=== PATIENT | female | born 1950 | race Caucasian/White ===

== ENCOUNTER 2021-06-09 11:03 | Emergency (ER) | payer MEDICARE, OTHER, SELFPAY ==
[2021-06-09 11:04] VITALS: BP 134/86; PULSE 64; RESP 18; TEMP 36.4; O2SAT 99; BMI 23.3
--- NOTE | 2021-06-09 11:32 | EKG12_ITS ---
Test Reason : Blood Pressure : / mmHG Vent. Rate : 064 BPM Atrial Rate : 064 BPM P-R Int : 172 ms QRS Dur : 088 ms QT Int : 450 ms P-R-T Axes : 062 -02 028 degrees QTc Int : 464 ms Normal sinus rhythm Nonspecific ST abnormality Abnormal ECG Confirmed by DARI ARAUJO, BARBARA ([id number]), online content editor SHABBIR NOBLE ([id number]) on 06/14/2021 10:45:27 AM Referred By: REEMA Confirmed By:ANDREY CHAPIN MD
--- NOTE | 2021-06-09 11:32 | CT_ITS ---
EXAM: CT ANGIOGRAPHY HEAD AND NECK WITH INTRAVENOUS CONTRAST CLINICAL INDICATION: vertigo TECHNIQUE: [place]/head and neck CT angiography protocol performed with intravenous contrast. This CT exam was performed using one or more of the following dose reduction techniques: automated exposure control, adjustment of the mA and/or kV according to patient size, and/or use of iterative reconstruction technique. This report was created using GigDropper report generation technology. MIP reconstructed images were created and reviewed. CONTRAST: IV 100mL Isovue-370 COMPARISON: None. FINDINGS: HEAD: RIGHT ANTERIOR CEREBRAL ARTERY: Unremarkable. No significant stenosis at the visualized segments. Anterior communicating artery is present. No aneurysm. RIGHT MIDDLE CEREBRAL ARTERY: Unremarkable. No significant stenosis at the visualized segments. No aneurysm. RIGHT POSTERIOR CEREBRAL ARTERY: Unremarkable. No occlusion or significant stenosis. No aneurysm. LEFT ANTERIOR CEREBRAL ARTERY: Hypoplastic. No significant stenosis at the visualized segments. No aneurysm. LEFT MIDDLE CEREBRAL ARTERY: Unremarkable. No significant stenosis at the visualized segments. No aneurysm. LEFT POSTERIOR CEREBRAL ARTERY: Unremarkable. No occlusion or significant stenosis. No aneurysm. BASILAR ARTERY: Unremarkable. No significant stenosis. No aneurysm. GREAT VESSELS OF AORTIC ARCH: Atherosclerosis of the aortic arch and origin of the left subclavian artery. OTHER VASCULATURE: No vascular malformation. NECK: RIGHT COMMON CAROTID ARTERY: Unremarkable. No significant stenosis. No dissection or occlusion. RIGHT INTERNAL CAROTID ARTERY: Calcific atherosclerosis of the proximal right internal carotid artery with noncalcified plaque just above. Moderate to borderline severe (65-70%) stenosis best seen on image 89 of series 607. No dissection or occlusion. RIGHT EXTERNAL CAROTID ARTERY: Unremarkable. No occlusion. RIGHT VERTEBRAL ARTERY: Unremarkable. No significant stenosis. No dissection or occlusion. LEFT COMMON CAROTID ARTERY: Unremarkable. No significant stenosis. No dissection or occlusion. LEFT INTERNAL CAROTID ARTERY: Minor atherosclerosis of the left proximal ICA with minimal (10-15%) luminal narrowing. LEFT EXTERNAL CAROTID ARTERY: Unremarkable. No occlusion. LEFT VERTEBRAL ARTERY: Unremarkable. No significant stenosis. No dissection or occlusion. LUNG APICES: Unremarkable as visualized. SOFT TISSUES: Unremarkable. OTHER FINDINGS: Multilevel degenerative changes throughout the cervical spine with foraminal more than canal stenosis. CAROTID STENOSIS REFERENCE USING NASCET CRITERIA: % ICA stenosis = (1 - narrowest ICA diameter/diameter of distal cervical ICA) x 100. Mild - <50% stenosis. Moderate - 50-69% stenosis. Severe - 70-94% stenosis. Near occlusion - 95-99% stenosis. Occluded - 100% stenosis. IMPRESSION: 1. 65-70% stenosis of the proximal right ICA. 2. No arterial dissection or intracranial aneurysm. No large vessel occlusion. EXAM: CT CERVICAL SPINE WITHOUT INTRAVENOUS CONTRAST CLINICAL INDICATION: vertigo TECHNIQUE: Helically acquired images were obtained of the cervical spine without intravenous contrast. 2D reformatted images were reviewed. This CT exam was performed using one or more of the following dose reduction techniques: automated exposure control, adjustment of the mA and/or kV according to patient size, and/or use of iterative reconstruction technique. This report was created using GigDropper report generation technology. Coronal and sagittal reformatted images were created and reviewed. CONTRAST: IV 100mL Isovue-370 COMPARISON: None. FINDINGS: VERTEBRAE: Unremarkable. No fracture. No traumatic subluxation. No discrete lytic or blastic abnormality. Normal alignment. Normal craniocervical junction and cervicothoracic junction. DISCS/SPINAL CANAL/NEURAL FORAMINA: Unremarkable. Disc heights are preserved. No critical stenosis. SOFT TISSUES: Unremarkable. No prevertebral soft tissue swelling. LYMPH NODES: Unremarkable. No cervical adenopathy. LUNG APICES: Unremarkable as visualized. Clear. OTHER FINDINGS: Central parenchymal volume loss. White matter changes that are nonspecific but most commonly associated with chronic small vessel ischemic disease. CT/CTA Head AND Neck W/ Contrast IMPRESSION: No acute intracranial hemorrhage or mass effect. Electronically Signed: Mor Maldonado MD (Brooks) at 12:56 EDT , Service support ,
--- NOTE | 2021-06-09 11:34 | EX.ED.DYSGE1 ---
HPI History of Present Illness Chief Complaint: Dizziness Informant: patient Onset/Context/Timing Onset: Weeks Timing: Waxes and wanes Current Severity: Moderate Maximum Severity: Moderate Narrative Narrative: Patient presents with continued dizziness after a fall. She fell approximate month ago hitting the back of her head. She was seen at a local ER at that time and had a negative head CT. Patient states that she continues to have intermittent dizziness that seems to be worsening. She states she has an overall lightheadedness when she turns her head to the left she gets a spinning sensation. Week after her initial injury she went to a different hospital for second opinion as she was still having symptoms. A repeat noncontrast head CT at that time was also reportedly negative. Patient has since moved to [place] but does not have any local physician here. [facility] Medical History Cirrhosis Home Medications meclizine 25 mg PO TID PRN #14 tab 06/09/21 [Rx Last Taken Unknown] potassium chloride 40 meq PO DAILY 3 Days #45 ml 06/09/21 [Rx Last Taken Unknown] Allergy/AdvReac Type Severity Reaction Status Date / Time No Known Allergies Allergy Verified 06/09/21 11:06 Social History Smoking Status: Unknown if ever smoked ROS ROS ED Constitutional Constitutional ED: Denies chills or fever(s) Eyes Eyes: Denies change in vision ENT ENT ED: Denies sore throat Cardiovascular Cardiovascular: Denies chest pain Respiratory/Chest Respiratory/Chest: Denies cough or dyspnea Gastrointestinal Gastrointestinal: Denies abdominal pain, diarrhea, nausea or vomiting Genitourinary Genitourinary ED: Denies dysuria Musculoskeletal Musculoskeletal: Denies back pain Integumentary Denies rash Neurologic Neurologic: Denies headache(s) or weakness Allergic/Immunologic Allergic/Immunologic ED: Denies urticaria EXAM Physical Exam Const Vital Signs: 06/09/21 11:04 06/09/21 12:10 06/09/21 13:09 Temperature 97.5 F L Temperature Source Temporal Pulse Rate 64 71 Respiratory Rate 18 15 Respiratory Effort Normal Non-Labored Respiratory Pattern Normal Blood Pressure 134/86 H 122/62 H Blood Pressure Mean 102 82 Pulse Ox 99 98 Oxygen Delivery Method Room Air Room Air Positive well nourished and well developed General Appearance ED: well developed HEENT Reports moist mucous membranes Eyes PERRL and EOMs intact bilaterally Neck supple Chest Wall inspection of chest normal and palpation of chest normal Resp normal respiratory effort and clear to auscultation bilaterally Cardio regular rate and regular rhythm GI normal to inspection, nondistended, normoactive bowel sounds and non-tender Palpation: soft Extremity normal to inspection Neuro oriented x3 and no sensory deficits noted Sensorium / Orientation: alert Motor Exam: strength 5/5 throughout Psych mental status grossly normal Skin no rashes or lesions noted MDM MDM MDM Narrative Medical decision making narrative: Patient is given Antivert. Lab work, EKG, CTA head and neck obtained. Lab Data Attestation: I reviewed the patient's lab results. Labs: Laboratory Results - last 24 hr 06/09/21 06/09/21 11:20 11:20 WBC 4.1 L RBC 3.62 L Hgb 13.1 Hct 36.2 L MCV 100.0 H MCH 36.2 H MCHC 36.2 H RDW Std Deviation 50.9 H RDW Coeff of [place] 13.8 Plt Count 144 L MPV 8.8 Immature Gran % (Auto) 0.200 Neut % (Auto) 57.6 Lymph % (Auto) 29.8 Long % (Auto) 10.5 H Eos % (Auto) 1.2 Baso % (Auto) 0.7 Absolute Neuts (auto) 2.4 Absolute Lymphs (auto) 1.22 Nucleated RBC % 0 Sodium 130 L Potassium 3.3 L Chloride 91 L Carbon Dioxide 30.0 Anion Gap 9 BUN 10 Creatinine 0.70 Estim Creat Clear Calc 45.85 Est GFR (MDRD) Af Amer 107 Est GFR (MDRD) Non-Af 88 BUN/Creatinine Ratio 14.3 Glucose 104 Calcium 9.7 Radiography Diagnostic Testing: Radiology Impression Head/Neck CTA 06/09/21 11:32 IMPRESSION: No acute intracranial hemorrhage or mass effect. Electronically Signed: Mor Maldonado MD (Brooks) at 12:56 EDT , Service support , IMPRESSION: 1. 65-70% stenosis of the proximal right ICA. 2. No arterial dissection or intracranial aneurysm. No large vessel occlusion. EKG Initial EKG: Attestation: I personally reviewed and interpreted this EKG as follows: Interpretation: Sinus Rhythm (Sinus at 64 with no acute ischemia.) Treatment and Re-Evaluation Comments:: Test results reviewed. Patient's sodium is 130. I was able to find a visit from May 05 of this year at which time her sodium level was 131. Potassium today is slightly low at 3.3. This is replaced with oral potassium. CTA reveals 65 to 70% stenosis of the proximal right ICA. No large vessel occlusion. No intracranial hemorrhage or mass-effect. Test results are all discussed with the patient. I did recommend close follow-up with vascular surgery for her moderate right ICA stenosis. She will be treated with Antivert which did help her dizziness here as well as oral potassium for the next 3 days. She is referred both to primary care and vascular for follow-up. Discharge Plan Triage Chief Complaint: Dizziness ED Provider: Claudia Toro Dx/Rx/DC Orders Clinical Impression: Vertigo, Carotid artery stenosis, Hypokalemia Instructions: ED Hypokalemia, ED Vertigo, Unspecified, Carotid Artery Disease Prescriptions: New meclizine 25 mg tablet 25 mg PO TID PRN (Reason: dizziness) Qty: 14 RF: 0 potassium chloride 40 mEq/15 mL liquid 40 meq PO DAILY 3 Days Qty: 45 RF: 0 Primary Care Provider: Care Physician,No Primary Referrals: Ernesto Rodriguez MD [STAFF PHYSICIAN] - As soon as possible Uday Brooks MD [STAFF PHYSICIAN] - As soon as possible Care Physician,No Primary [Primary Care Provider] - Disposition Disposition: Home, Self Care
--- NOTE | 2021-06-09 11:43 | NURSING ---
NO OLD EKGS
[2021-06-09] MEDS: Meclizine HCl 25 MG Tablet PO (11:52)
[2021-06-09 11:54] LABS: Absolute Lymphocyte Count 1.22 X10^3/uL (0.83-4.51); Absolute Neutrophil Count 2.4 X10^3/uL (2.0-7.7); Basophil# 0.03 X10^3/uL; Basophil% 0.7 % (0-1); Eosinophil# 0.05 X10^3/uL; Eosinophils% 1.2 % (0-5); Hematocrit 36.2 % (37-47); Hemoglobin 13.1 g/dL (12.0-15.0); Lymphocyte # 1.22 X10^3/ul (0.83-4.51); Lymphocyte % 29.8 % (19-41); Mean Corp Hgb Conc 36.2 g/dL (32-36); Mean Corpuscular Hgb 36.2 pg (27.0-32.0); Mean Platelet Vol. 8.8 fl (6.2-12.0); Monocyte# 0.43 X10^3/uL; Monocyte% 10.5 % (0-10); NRBC Flagged by Analyzer 0 % (0-5); Neutrophil # 2.36 X10^3/uL (2.7-7.7); Neutrophil % 57.6 % (47-70); Platelet Count 144 K/mm3 (150-450); RBC Distribution Width CV 13.8 % (11.6-14.6); RBC Distribution Width SD 50.9 fl (35.1-43.9); Red Blood Count 3.62 M/mm3 (4.2-5.4); White Blood Count 4.1 K/mm3 (4.4-11.0)
[2021-06-09 11:57] LABS: Anion Gap 9 (5-15); BUN 10 mg/dL (7-18); BUN/Creat Ratio 14.3 RATIO (10-20); Calcium,Total 9.7 mg/dL (8.5-10.1); Chloride 91 mmol/L (98-107); EST Glomerular Filtration Rate 88 mL/min (>60); Est Glom Filt Rate - Afr Amer 107 mL/min (>60); Estimated Creatinine Clearance 45.85 ml/min; Glucose 104 mg/dL (74-106); Potassium 3.3 mmol/L (3.5-5.1); Sodium Level 130 mmol/L (136-145)
[2021-06-09 13:09] VITALS: BP 122/62; PULSE 71; RESP 15; O2SAT 98
[2021-06-09] MEDS: Potassium Chloride Oral Soln 20 MEQ/15 ML UDC 40 MEQ PO (13:33)
== END 2021-06-09 13:48 | disposition home or self-care (01) ==
PROVIDERS: Emergency Provider Emergency Medicine
DX: R42 Dizziness and giddiness (principal); I65.29 Occlusion and stenosis of unspecified carotid artery; E87.6 Hypokalemia
CPT/HCPCS: 70496; 70498; 80048; 85025; 93005; 99282; Q9967; A4216

== ENCOUNTER → 2021-06-18 11:09 | Outpatient (CLI) | payer MEDICARE, OTHER, SELFPAY ==
--- NOTE | 2021-06-18 11:12 | CDU_ITS ---
Reason For Study: Carotid Stenosis Rt. Velocities/BP Lt. Velocities/BP Prox CCA 57/10 cm/sec. Prox CCA 72/13 cm/sec. Mid CCA 63/12 cm/sec. Mid CCA 55/11 cm/sec. Dist CCA 46/11 cm/sec. Dist CCA 56/14 cm/sec. Prox ICA 60/10 cm/sec. Prox ICA 68/17 cm/sec. Mid ICA 71/19 cm/sec. Mid ICA 97/29 cm/sec. Dist ICA 111/27 cm/sec. Dist ICA 105/25 cm/sec. Rt. ICA/CCA = 1.8. Lt. ICA/CCA = 1.9. Prox ECA 59/4 cm/sec. Prox ECA 69/7 cm/sec. Rt. Vert. 72/20 cm/sec. Lt. Vert. 78/19 cm/sec. Right Extracranial There is heterogeneous, irregular atherosclerotic plaque noted in the right common carotid artery. There is heterogeneous, irregular atherosclerotic plaque noted in the right internal carotid artery. There is intimal thickening but no significant atherosclerotic plaque noted in the right external carotid artery. Antegrade flow is noted in the right vertebral artery. Left Extracranial There is intimal thickening but no significant atherosclerotic plaque noted in the left common carotid artery. There is heterogeneous, irregular atherosclerotic plaque noted in the left internal carotid artery. There is intimal thickening but no significant atherosclerotic plaque noted in the left external carotid artery. Antegrade flow is noted in the left vertebral artery. Procedure Carotid Duplex 16848. This is a Carotid Duplex examination using B-mode, color flow and specral Doppler. Exam performed in department. VL/Carotid Duplex Ultrasound Interpretation Summary Calcific plaque with shadowing at the right proximal internal carotid artery wi th less than 50% stenosis Less than 50% stenosis right external carotid artery Mild irregular plaque in the proximal left internal carotid artery with less th an 50% stenosis Less than 50% stenosis left external carotid artery Patent antegrade vertebral arteries bilaterally Ordering Physician: Uday Brooks Referring Physician: Uday Brooks Performed By: Mary Lambert, CLAU, RVT
== END ==
PROVIDERS: Referring Provider Surgery; Visit Provider Surgery
DX: I65.21 Occlusion and stenosis of right carotid artery (principal)
CPT/HCPCS: 93880

== ENCOUNTER → 2021-07-08 11:46 | Outpatient (CLI) | payer MEDICARE, OTHER, SELFPAY ==
--- NOTE | 2021-07-08 11:53 | RAD_ITS ---
STUDY: X-RAY - PELVIS REASON FOR EXAM: Female, 70 years old. BACK PAIN TECHNIQUE: One view of the pelvis was obtained. COMPARISON: None. FINDINGS: There is a non-specific bowel gas pattern. Normal visualized soft tissue structures. There is narrowing with cortical sclerosis and osteophyte formation of the sacroiliac joint consistent with degenerative osteoarthritic changes. Normal visualized bilateral superior and inferior pubic rami. Normal pubic symphysis. Normal ischial tuberosities. Normal visualized right femoral head. Normal right acetabulum. There is moderate articular joint space narrowing of the right hip. Normal visualized left femoral head. Normal left acetabulum. There is moderate articular joint space narrowing of the left hip. RAD/Pelvis 1 or 2 Views IMPRESSION: Age consistent degenerative changes, no acute findings Electronically Signed: Trent Flanagan MD at 12:14 EDT , Service support ,
--- NOTE | 2021-07-08 11:57 | RAD_ITS ---
STUDY: X-RAY - LUMBAR SPINE REASON FOR EXAM: Female, 70 years old. BACK PAIN TECHNIQUE: 3 view(s) of the lumbar spine were obtained. COMPARISON: None FINDINGS: There is straightening of the normal lumbar lordosis. There is a dextroscoliosis of the lumbar spine. There is a normal alignment of the vertebrae in the lateral view. There is diffuse demineralization with multi-level endplate spondylosis. There is multi-level degenerative disc disease with multi-level disc space narrowing. There is no demonstrated fracture. There is atherosclerotic calcification of the abdominal aorta without a demonstrated aneurysm. RAD/Lumbar Spine 2 or 3 Views IMPRESSION: Degenerative changes of the spine, as detailed above. Dextroscoliosis Electronically Signed: Trent Flanagan MD at 12:13 EDT , Service support ,
== END ==
PROVIDERS: Referring Provider Anesthesiology Pain Medicine; Visit Provider Anesthesiology Pain Medicine
DX: M54.9 Dorsalgia, unspecified (principal)
CPT/HCPCS: 72100; 72170

== ENCOUNTER 2021-07-19 13:30 | Outpatient (RCR) | payer MEDICARE, OTHER, SELFPAY ==
--- NOTE | 2021-07-14 11:24 | HP.PTEVAL ---
Patient's Visit Information MARY ALICE GA is a 70 year old F referred to Physical Therapy by AMANDA COVARRUBIAS with a diagnosis of RIGHT SCIATICA AND R HIP TROCHANTERIC BURSITIS. Date of Evaluation: 07/14/21 Physical Therapist: Renita Lemon, PT, Cert MDT - Visit Plan Frequency: 2-3x /Week Duration: 4-6 Weeks Plan: *START VERY SLOW THE FIRST VISIT*. PATIENT DOES HAVE WATER AEROBIC EXPERIENCE IN [place] FOR ARTHRIITS. MAY NEED TO REFER PATIENT BACK TO DOCTOR FOR FUTHER ASSESSMENT/TESTING IF CAN NOT TOLERATE LIGHT PT. POC: AQUATIC THERAPY FOR PAIN RELIEF, POSTURE CORRECTION/STRENGTHENING, INSTRUCTION IN APPROPRIATE BODY MECHANICS AND ACTIVITY MODIFICATIONS. DLS STARTING WITH A NEUTRAL SPINE PROGRESSING ROM TOLERATED. JERI LE ROM, STRETCHING AND STRENGTHENING. HEP INSTRUCTION. - Subjective Work/Leisure: RETIRED. 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 Disability: NO. Present symptoms: LOW BACK PAIN, RIGHT LE SX'S ALL THE WAY TO THE FOOT AND LLE SX'S TO THE THIGH. PAIN, NUMBNESS AND TINGLING IN LE'S. Present since: ABOUT 3 WEEKS AGO. Pain Scale: WORST 8/10, LEAST 2/10. Currently: 03/13. Commenced as a result of: LIFTING BOX TO MOVE. IN THE NEW HOUSE MOSTLY NOW BUT STILL HAS SOME THINGS TO MOVE. PULLED A BOX OUT OF CAR AND TRIED TO KEEP FROM DROPPING IT GOING INTO A FLEX AND TWISTED POSITION THEN FELL ON RIGHT BUTTOCK. Symptoms at onset: RIGHT BUTTOCK PAIN. Worse: WALKING, SITTING ON HARD CHAIRS, STANDING, LIFTING, AND STOOPING. Better: LYING FLAT ON MY BACK IN BED. Disturbed sleep: YES. Previous history/Previous treatment: UNREMARKABLE. USE TO WALK TWO TO THREE MILES A DAY. Treatment this episode: ACCUNCTURE - TWO TREATMENTS - NO EFFECT. [facility] PAIN MGMT - DR. PRICE - TWO MUSCULAR CORTISONE SHOTS - NO EFFECT. 7 DAYS OF HYDROCODONE PRESCRIBED AND TRAZADONE MUSCLE RELAXER PRESCRIBED. STATES MUSCLE RELAXER HELPED SOME. 07/22/21 FOLLOW UP PENDING WITH DR. PRICE. ALSO SAW A PA AT [facility] AND PRESCRIBED MALOXACAM - ANTI-INFLAMMATORY BUT PATIENT REPORTS IT HAD NO EFFECT. Coughing/sneezing/straining: NEGATIVE. Gait: SLOW. VERY STIFF, VERY PAINFUL, FEAR FULL. USING WALKER AND CANE TO GET AROUND. TIME AND DISTANCE LIMITED. Difficulty initiating urination: NO. INCONTINENCE THAT IS MORE PREVELENT RIGHT NOW. NO LOSS OF BOWEL CONTROL. Accidents: FALL IN Apr WHILE OUTSIDE TRYING TO WALK UP STEPS AND FELL BACKWARDS ONTO CONCRETE HITTING BACK AND HEAD (STITCHES IN HEAD). SEEMED TO BE FINE AFTER THAT AND PACKED ABOUT 100 BOXES BY HERSELF, LOADED THEM IN TRUCK AND UNLOADED THEM. Unexplained weight loss: NO. Imaging: RECENT PELVIC X-RAYS: STUDY: X-RAY - PELVIS. REASON FOR EXAM: Female, 70 years old. BACK PAIN. TECHNIQUE: One view of the pelvis was obtained. COMPARISON: None. . FINDINGS: There is a non-specific bowel gas pattern. Normal visualized soft tissue. structures. There is narrowing with cortical sclerosis and osteophyte formation of the. sacroiliac joint consistent with degenerative osteoarthritic changes. Normal visualized bilateral superior and inferior pubic rami. Normal pubic. symphysis. Normal ischial tuberosities. Normal visualized right femoral head. Normal right acetabulum. There is. moderate articular joint space narrowing of the right hip. Normal visualized left femoral head. Normal left acetabulum. There is. moderate articular joint space narrowing of the left hip. . RAD/Pelvis 1 or 2 Views. IMPRESSION: Age consistent degenerative changes, no acute findings. . Electronically Signed: Trent Flanagan MD. at 12:14 EDT. RECENT LUMBAR X-RAY: STUDY: X-RAY - LUMBAR SPINE. REASON FOR EXAM: Female, 70 years old. BACK PAIN. TECHNIQUE: 3 view(s) of the lumbar spine were obtained. COMPARISON: None. . FINDINGS: There is straightening of the normal lumbar lordosis. There is a. dextroscoliosis of the lumbar spine. There is a normal alignment of the. vertebrae in the lateral view. There is diffuse demineralization with multi-level endplate spondylosis. There is multi-level degenerative disc disease with multi-level disc space. narrowing. There is no demonstrated fracture. There is atherosclerotic calcification of the abdominal aorta without a. demonstrated aneurysm. . RAD/Lumbar Spine 2 or 3 Views. IMPRESSION: Degenerative changes of the spine, as detailed above. Dextroscoliosis. PMH/Recent major surgery: OA. DIZZINESS/VERTIGO - HAD CAROTID A. US AND CONSULTED DR. ZELAYA WITH NO SURGERY RECOMMENDED. WATER RETENTION - ON LASIX. HTN. PSOROSIS OF THE LIVER DUE TO ALCOHOL. JERI TKR'S. TESTED NEGATIVE FOR RHEUMATOID ARTHRIS. OTHER: HAS HEART FAILURE AND IS NOT DOING WELL. MOVED HERE TO BE CLOSER TO [facility] AND MEDICAL CARE. HOPING TO LEAVE FOR [place] 07/24/21. - Objective Sitting/Standing Posture: SCOLIOSIS. LEFT ILIAC CREST HIGHER THAN RIGHT. Active Correction of posture: NE. Other Observations: VERY ANTALGIC INDEP GAIT INTO PT WITH A STRAIGHT CANE. TRANSFERS ARE INDEP BUT VERY GUARDED AND APPEAR VERY PAINFUL. BETTER ONCE SHE GETS MOVING. NO LOB. Motor deficit: JERI LE'S GROSSLY 4/5 WITH MMT'ING. THIS PT PROCEEDED CAREFULLY WITH TESTING BECAUSE TESTING PROVOKES BACK AND HIP PAIN. Sensory deficit: JERI LE LIGHT TOUCH SENSATION APPEARS INTACT AND SYMMETRICAL. ROM deficit: TIGHT JERI LE HS'S (RIGHT > LEFT) AND GASTROC SOLEUS COMPLEX'S. Reflexes: NT. Dural Signs: POSITIVE RIGHT LE. Lumbar mvmt loss: flex - MOD. ext - TATUM. R SG - TATUM. L SG - TATUM. INCREASED PAIN WITH LUMBAR ROM TESTING ALL PLANES. Core strength: POOR. Palpation: NO ACUTE THORACIC, LUMBAR, SACRAL OR HIP TENDERNESS. TREATMENT: NEUROMUSCULAR REEDUCATION - RETRAINING OF MVMT AND POSTURE FOR SITTING, LYING AND STANDING ACTIVITIES. THIS PT RECOMMENDED USE OF ROLLATOR VS CANE TO PATIENT TO DECREASE GAIT DEVIATIONS AND ALLIVATE PAIN WITH GAIT. - Balance/Special Test Scores Oswestry Low Back Score: 34 - Goals Goal 1:: DECREASE C/O LOW BACK AND JERI LE SX'S. Goal Time Frame: 4-6 Weeks Goal 2:: IMPROVE PERSONAL CARE, LIFTING, WALKING, SITTING, STANDING, SLEEP, SOCIAL LIFE, TRAVEL, CARE GIVING () AND WORK/HOMEMAKING FUNCTION Goal Time Frame: 4-6 Weeks Goal 3:: INSTRUCT IN PROPHYLAXIS Goal Time Frame: 4-6 Weeks - Anticipated Interventions Patient/Client Instruction: Educate patient on: Condition, Plan of Care, Risk Factors For the Purpose of:: To improve self management Therapeutic Exercise to Include: Strength training, Body mechanics, Postural training, Flexibilty training, Gait and locomotor training, Neuromotor development, In an aquatic setting, Dynamic Lumbar Stabilization For the Purpose of:: To decrease pain, To improve muscle performance and motor function, To increase tolerance to activity/condition/position, To improve ability of physical actions for home/community/work/leisure, To improve gait and locomotor functions Thank you for the opportunity to evaluate your patient. For Medicare and Medicare HMO plans, please review the plan of care and approve it. It will need to be FAXED BACK to us at [phone] for Medicare purposes. For Medicare only, by signing this I certify the plan of care. Please let me know if there are questions or concerns regarding this plan of care. Physician Signature: Date:
--- NOTE | 2021-07-21 08:25 | HP.PTDCNRP_ITS ---
MARY ALICE GA was seen in my office for initial evaluation on 07/14/21. The following Plan of Care was established for this patient: Initial Frequency: 2-3x /Week Initial Duration: 4-6 Weeks Patient/Client Instruction: Educate patient on: Condition, Plan of Care, Risk Factors For the Purpose of:: To improve self management Therapeutic Exercise to Include: Strength training, Body mechanics, Postural training, Flexibilty training, Gait and locomotor training, Neuromotor development, In an aquatic setting, Dynamic Lumbar Stabilization For the Purpose of:: To decrease pain, To improve muscle performance and motor function, To increase tolerance to activity/condition/position, To improve ability of physical actions for home/community/work/leisure, To improve gait and locomotor functions This patient was last seen in our office . Pertinent comments regarding their Physical therapy will appear below: This patient has not returned to Physical Therapy and is appropriate to return to MD for further follow-up as needed. She apparently called and cancelled remaining PT due to moving to [place]. At this point I will be discontinuing this patient from physical therapy. I would be happy to see this patient again in the future if found appropriate by the physician. Thank you! Renita Lemon, PT, Cert MDT Balance/Gait/Functional tests - Balance/Special Test Scores Oswestry Low Back Score: 34
== END 2021-07-19 19:00 | disposition home or self-care (01) ==
LOC: PT 13:30
PROVIDERS: Referring Provider Physician Assistant Surgical; Visit Provider Physician Assistant Surgical
DX: M54.31 Sciatica, right side (principal); M70.61 Trochanteric bursitis, right hip
CPT/HCPCS: 97112; 97113; 97162

== ENCOUNTER → 2022-02-16 | Outpatient (CLI) | payer MEDICARE, OTHER, SELFPAY | END | disposition home or self-care (01) | PROVIDERS: Visit Provider Podiatrist | DX: L97.522 Non-pressure chronic ulcer of other part of left foot with fat layer exposed (principal) | CPT/HCPCS: 87070; 87075; 87077; 87186; 87205 ==

== ENCOUNTER → 2022-03-25 | Outpatient (CLI) | payer MEDICARE, OTHER, SELFPAY ==
[2022-03-25 12:30] LABS: Absolute Lymphocyte Count 1.37 X10^3/uL (0.83-4.51); Basophil# 0.06 X10^3/uL; Basophil% 1.1 % (0-1); Eosinophil# 0.13 X10^3/uL; Eosinophils% 2.5 % (0-5); Hematocrit 37.2 % (37-47); Hemoglobin 12.7 g/dL (12.0-15.0); Lymphocyte # 1.37 X10^3/ul (0.83-4.51); Lymphocyte % 26.1 % (19-41); Mean Corp Hgb Conc 34.1 g/dL (32-36); Mean Corpuscular Hgb 28.5 pg (27.0-32.0); Mean Corpuscular Volume 83.4 fL (81-99); Monocyte% 13.4 % (0-10); NRBC Flagged by Analyzer 0 % (0-5); Neutrophil # 2.96 X10^3/uL (2.7-7.7); Neutrophil % 56.5 % (47-70); Platelet Count 203 K/mm3 (150-450); RBC Distribution Width CV 18.3 % (11.6-14.6); RBC Distribution Width SD 55.1 fl (35.1-43.9); Red Blood Count 4.46 M/mm3 (4.2-5.4); White Blood Count 5.2 K/mm3 (4.4-11.0)
[2022-03-25 12:36] LABS: ALB/GLOB Ratio 0.8 RATIO (0.9-2.4); AST(SGOT) 113 U/L (15-37); Alanine Aminotransfer ALT/SGPT 45 U/L (13-56); Albumin, Serum 3.6 g/dL (3.2-5.0); Alkaline Phosphatase 164 U/L (45-117); Anion Gap 11 (5-15); BUN 9 mg/dL (7-18); BUN/Creat Ratio 15.3 RATIO (10-20); Calcium,Total 9.7 mg/dL (8.5-10.1); Chloride 88 mmol/L (98-107); Creatinine, Serum 0.59 mg/dL (0.55-1.02); EST Glomerular Filtration Rate 108 mL/min (>60); Est Glom Filt Rate - Afr Amer 130 mL/min (>60); Globulin 4.4 g/dL (2.2-4.2); Glucose 105 mg/dL (74-106); Potassium 3.7 mmol/L (3.5-5.1); Sodium Level 129 mmol/L (136-145)
== END | disposition home or self-care (01) ==
LOC: BIMLAB 10:09
PROVIDERS: PCP Internal Medicine; Referring Provider Internal Medicine; Visit Provider Internal Medicine
DX: K21.9 Gastro-esophageal reflux disease without esophagitis (principal)
CPT/HCPCS: 36415; 80053; 85025

== ENCOUNTER → 2022-03-31 | Outpatient (CLI) | payer MEDICARE, OTHER, SELFPAY ==
--- NOTE | 2022-03-31 09:16 | BD_ITS ---
STUDY: DUAL ENERGY X-RAY ABSORPTIOMETRY / DXA REASON FOR EXAM: Female, 71 years old. Post menopausal TECHNIQUE: Bone Mineral Density (BMD) measurements of lumbar spine and right hip were obtained. COMPARISON: None. FINDINGS: Lumbar Spine (L1-L4): g/cm2 (0.991) / T-score (-0.5) / Z-score (1.6) Findings are suggestive of normal bone density with a low fracture risk. Right Femur Total: g/cm2 (0.656) / T-score (-2.3) / Z-score (-0.8) Right Femoral Neck: g/cm2 (0.510) / T-score (-3.1) / Z-score (-1.2) BD/Dexa Bone Density Study IMPRESSION: The patient is considered osteoporotic as outlined below according to World Felix Organization (WHO) criteria with a high fracture risk. Reference Information: The T-score is the number of standard deviations above or below the standard which is normal for young adults at their peak bone mineral density. The World Health Organization (WHO) interprets the T-scores as follows: Above -1 Normal bone density Between -1 and -2.5 Osteopenia Equal to / or below -2.5 Osteoporosis As a practical clinical guideline, osteopenia may be graded as follows: Mild -1 through -1.5 Moderate -1.6 through -2.0 Severe -2.1 through -2.4 The Z-score is the number of standard deviations above or below age-matched controls. A Z-score of less than -1.5 would be considered abnormal. References: 1. NIH Osteoporosis and Related Bone Diseases www osteo.org 2. International Society for Clinical Densitometry www iscd.org 3. National Osteoporosis Foundation www nof.org Electronically Signed: Nahum Kelley MD at 9:49 EDT ,
== END | disposition home or self-care (01) ==
LOC: OPBD 09:11
PROVIDERS: PCP Internal Medicine; Visit Provider Internal Medicine
DX: Z78.0 Asymptomatic menopausal state (principal)
CPT/HCPCS: 77080

== ENCOUNTER → 2022-04-11 | Outpatient (CLI) | payer MEDICARE, OTHER, SELFPAY ==
[2022-04-11 12:29] LABS: Vitamin D,25 Hydroxy 59.9 ng/mL
[2022-04-11 12:33] LABS: ALB/GLOB Ratio 0.9 RATIO (0.9-2.4); AST(SGOT) 131 U/L (15-37); Alanine Aminotransfer ALT/SGPT 56 U/L (13-56); Albumin, Serum 3.5 g/dL (3.2-5.0); Alkaline Phosphatase 186 U/L (45-117); Anion Gap 6 (5-15); BUN 12 mg/dL (7-18); Calcium,Total 9.1 mg/dL (8.5-10.1); Chloride 93 mmol/L (98-107); EST Glomerular Filtration Rate 105 mL/min (>60); Est Glom Filt Rate - Afr Amer 127 mL/min (>60); Glucose 133 mg/dL (74-106); Potassium 3.4 mmol/L (3.5-5.1); Protein, Total 7.5 g/dL (6.4-8.2); Sodium Level 129 mmol/L (136-145)
== END | disposition home or self-care (01) ==
LOC: BIMLAB 08:54
PROVIDERS: PCP Internal Medicine; Referring Provider Internal Medicine; Visit Provider Internal Medicine
DX: R74.8 Abnormal levels of other serum enzymes (principal); E87.1 Hypo-osmolality and hyponatremia; M81.0 Age-related osteoporosis without current pathological fracture
CPT/HCPCS: 36415; 80053; 82306

== ENCOUNTER 2022-04-28 08:00 | Outpatient (RCR) | payer MEDICARE, OTHER, SELFPAY ==
--- NOTE | 2022-04-04 09:30 | HP.PTEVAL ---
Patient's Visit Information MARY ALICE GA is a 71 year old F referred to Physical Therapy by Dr. Ernesto Rodriguez MD with a diagnosis of dizzyness and giddiness. Date of Evaluation: 04/04/22 Physical Therapist: Shabbir Bell, DPT, OCS, CSCS - Visit Plan Frequency: 3x /Week Duration: 4-6 Weeks Plan: 2-3x/week for 4-6 weeks for. positional treatments as needed, balance and strengthening ex once dizzyness aboloished. Next session check positional and plan for balance and strength LE focussing L hip - Subjective Broke L hip tripping on tool in November and breaking L hip, Now is weak. Falls a numbe of times prior partly due to wweakness and partly due to weakness. Dizzy is fairly constant described as lightheaded and imbalanced. Worse in morning with movement upon sitting for a few seconds. Sometimes happens when she lies down for a few seconds or if she turns real quick. imbalanced with closing eyes in shower. Uses cane to get around due to balance and used it since November(was on walker for a while). In house she is good but uses it out of house. Sleep is fine. Not employed. Spends day taking care of who has heart pump, needs care. No regular exercises. Dizzyness has been since hit head when she fell. Neurologist checked her out but is not treating her, no concerns. - Objective Walks with cane in R UE slow and hesitant to shift weight buit Mod I with cane. Short steps. Trasnfers slow but I with UE on arms of chair. balance is good with eyesight staically, fair - dynamically, requires cane for safety. LE AROM WFL, tightness in quads and hip extension limited L. L hip higher and L leg looks longer than R. Strength LE 3 in L hip, 4- R hip, knees 4- and ankles 4-. UE AROM WFL. reflexes patella and achilles 2/3 B. Sensation WNL to gross light touch. Discoloered in legs below knees. + R HD for up torsional nystagmus 12 seconds, Better after jolene. - Balance/Special Test Scores Functional Gait Assessment Score: 15 % Disability: 50.0000 Lower Extremity Functional Score: 26 - Goals Goal 1:: Abolish dizzyness Goal Time Frame: 4-6 Weeks Goal 2:: FGA Goal Time Frame: 4-6 Weeks Goal 3:: I strength ex, balance ex for HEP Goal Time Frame: 4-6 Weeks Goal 4:: pt feel 75% better in overall condition Goal Time Frame: 4-6 Weeks - Rehabilitation Potential Physical Therapy Diagnosis: BPPV and sedentary crating balance deficits and mobility concerns. Rehabilitation Potential: Good - Anticipated Interventions Patient/Client Instruction: Educate patient on: Condition, Plan of Care For the Purpose of:: To increase ROM, To improve muscle performance and motor function, To increase tolerance to activity/condition/position, To improve ability of physical actions for home/community/work/leisure, To improve gait and locomotor functions, To improve safety Therapeutic Exercise to Include: Strength training, Balance training Comment: positional For the Purpose of:: To improve nutrient delivery to tissue, To improve muscle performance and motor function, To increase tolerance to activity/condition/position, To improve ability of physical actions for home/community/work/leisure, To improve gait and locomotor functions, To improve balance, To improve safety with gait Thank you for the opportunity to evaluate your patient. For Medicare and Medicare HMO plans, please review the plan of care and approve it. It will need to be FAXED BACK to us at [phone] for Medicare purposes. For Medicare only, by signing this I certify the plan of care. Please let me know if there are questions or concerns regarding this plan of care. Physician Signature: Date:
--- NOTE | 2022-04-08 06:58 | HP.PT.NRP ---
MARY ALICE GA was seen in my office for initial evaluation on 04/04/22. The following Plan of Care was established for this patient: Initial Frequency: 3x /Week Initial Duration: 4-6 Weeks Patient/Client Instruction: Educate patient on: Condition, Plan of Care For the Purpose of:: To increase ROM, To improve muscle performance and motor function, To increase tolerance to activity/condition/position, To improve ability of physical actions for home/community/work/leisure, To improve gait and locomotor functions, To improve safety Therapeutic Exercise to Include: Strength training, Balance training For the Purpose of:: To improve nutrient delivery to tissue, To improve muscle performance and motor function, To increase tolerance to activity/condition/position, To improve ability of physical actions for home/community/work/leisure, To improve gait and locomotor functions, To improve balance, To improve safety with gait This patient was last seen in our office 04/06/22. Pertinent comments regarding their Physical therapy will appear below: Pt seen two visits of POC and treated with different maneuvers for positional vertigo. she has called to cancel the rest of her visits stating she is 100% not dizzy anymore. Very thankful. I will discontinue her at her request at this time. At this point I will be discontinuing this patient from physical therapy. I would be happy to see this patient again in the future if found appropriate by the physician. Thank you! Shabbir Bell, DPT, OCS, CSCS Balance/Gait/Functional tests - Balance/Special Test Scores Functional Gait Assessment Score: 15 % Disability: 50.0000 Lower Extremity Functional Score: 26
--- NOTE | 2022-04-13 10:00 | HP.PTREVAL ---
Dr. Ernesto Rodriguez MD, It has been my pleasure to treat MARY ALICE GA over the last 3 visits for dizzyness and giddiness. Please see the progress note below for an update on the physical therapy plan of care! Subjective: D/Davey was a miscommunication as she just wanted to communicate that dizzyness is gone but still wanted to continue. Still feels unbalalncesd and wants to continue to work on balanlce and strength. Spinning is not happening anymore. Doing some band exercises for ankle and leg strengthening. Not challenging and does it once per day. Wants to have more strength in hands and arms and legs. Using cane to walk long distances but not at home. No falls recently. Uses walker to walk dog. Objective/Function: FGA . - B positional Plan Plan: 2x/week for 4 weeks for. 1. progress balance vestibular exercises and show gym based LE and postural strength. D/C was a mistaken communication form [facility] and although her dizzyness is gone, she still wishes to work on her balance. Balance/Gait/Functional tests - Balance/Special Test Scores Functional Gait Assessment Score: 20 % Disability: 33.3400 Lower Extremity Functional Score: 26 Goals Goal 1:: Abolish dizzyness Goal Time Frame: 4-6 Weeks Goal Progress: Goal Met Goal 2:: FGA Goal Time Frame: 4-6 Weeks Goal 3:: I strength ex, balance ex for HEP Goal Time Frame: 4-6 Weeks Goal 4:: pt feel 75% better in overall condition Goal Time Frame: 4-6 Weeks Anticipated Interventions Patient/Client Instruction: Educate patient on: Condition, Plan of Care For the Purpose of:: To increase ROM, To improve muscle performance and motor function, To increase tolerance to activity/condition/position, To improve ability of physical actions for home/community/work/leisure, To improve gait and locomotor functions, To improve safety Therapeutic Exercise to Include: Strength training, Balance training Comment: positional For the Purpose of:: To improve nutrient delivery to tissue, To improve muscle performance and motor function, To increase tolerance to activity/condition/position, To improve ability of physical actions for home/community/work/leisure, To improve gait and locomotor functions, To improve balance, To improve safety with gait Please do not hesitate to contact me at [phone] by phone or if you have questions or concerns regarding this new plan of care! Sincerely, Shabbir Bell, DPT, OCS, CSCS
--- NOTE | 2022-06-13 12:16 | HP.PT.NRP ---
MARY ALICE GA was seen in my office for initial evaluation on 04/04/22. The following Plan of Care was established for this patient: Initial Frequency: 3x /Week Initial Duration: 4-6 Weeks Patient/Client Instruction: Educate patient on: Condition, Plan of Care For the Purpose of:: To increase ROM, To improve muscle performance and motor function, To increase tolerance to activity/condition/position, To improve ability of physical actions for home/community/work/leisure, To improve gait and locomotor functions, To improve safety Therapeutic Exercise to Include: Strength training, Balance training For the Purpose of:: To improve nutrient delivery to tissue, To improve muscle performance and motor function, To increase tolerance to activity/condition/position, To improve ability of physical actions for home/community/work/leisure, To improve gait and locomotor functions, To improve balance, To improve safety with gait This patient was last seen in our office 04/28/22. Pertinent comments regarding their Physical therapy will appear below: Pt seen 7 visits of POC and was feeling really good at last attendance. She did not schedule or attend any further visits. at this point, it has been over 6 weeks and I will discontinue due to nonattendance. At this point I will be discontinuing this patient from physical therapy. I would be happy to see this patient again in the future if found appropriate by the physician. Thank you! Shabbir Bell, DPT, OCS, CSCS Balance/Gait/Functional tests - Balance/Special Test Scores Functional Gait Assessment Score: 20 % Disability: 33.3400 Lower Extremity Functional Score: 26
== END 2022-04-28 19:00 | disposition home or self-care (01) ==
LOC: PT 08:00
PROVIDERS: PCP Internal Medicine; Referring Provider Internal Medicine; Visit Provider Internal Medicine
DX: R42 Dizziness and giddiness (principal); M25.552 Pain in left hip; R54 Age-related physical debility
CPT/HCPCS: 97110; 97162; 97530

== ENCOUNTER → 2022-05-31 | Outpatient (CLI) | payer MEDICARE, OTHER, SELFPAY ==
[2022-05-31 12:25] LABS: Anion Gap 10 (5-15); BUN 7 mg/dL (7-18); BUN/Creat Ratio 13.2 RATIO (10-20); Calcium,Total 9.4 mg/dL (8.5-10.1); Chloride 93 mmol/L (98-107); Creatinine, Serum 0.53 mg/dL (0.55-1.02); EST Glomerular Filtration Rate 121 mL/min (>60); Est Glom Filt Rate - Afr Amer 147 mL/min (>60); Glucose 86 mg/dL (74-106); Potassium 3.7 mmol/L (3.5-5.1); Sodium Level 131 mmol/L (136-145)
== END | disposition home or self-care (01) ==
LOC: BIMLAB 09:32
PROVIDERS: PCP Internal Medicine; Referring Provider Internal Medicine; Visit Provider Internal Medicine
DX: E87.1 Hypo-osmolality and hyponatremia (principal)
CPT/HCPCS: 36415; 80048

== ENCOUNTER → 2023-01-20 | Outpatient (CLI) | payer MEDICARE, OTHER, SELFPAY ==
[2023-01-20 12:30] LABS: Absolute Lymphocyte Count 1.02 X10^3/uL (0.83-4.51); Absolute Neutrophil Count 3.3 X10^3/uL (2.0-7.7); Basophil# 0.05 X10^3/uL; Eosinophil# 0.07 X10^3/uL; Eosinophils% 1.4 % (0-5); Hematocrit 31.8 % (37-47); Hemoglobin 11.6 g/dL (12.0-15.0); Lymphocyte # 1.02 X10^3/ul (0.83-4.51); Lymphocyte % 19.9 % (19-41); Mean Corp Hgb Conc 36.5 g/dL (32-36); Mean Corpuscular Hgb 36.9 pg (27.0-32.0); Mean Corpuscular Volume 101.3 fL (81-99); Mean Platelet Vol. 9.7 fl (6.2-12.0); Monocyte# 0.65 X10^3/uL; Monocyte% 12.7 % (0-10); NRBC Flagged by Analyzer 0 % (0-5); Neutrophil # 3.31 X10^3/uL (2.7-7.7); Neutrophil % 64.6 % (47-70); Platelet Count 114 K/mm3 (150-450); RBC Distribution Width CV 15.9 % (11.6-14.6); RBC Distribution Width SD 58.4 fl (35.1-43.9); Red Blood Count 3.14 M/mm3 (4.2-5.4); White Blood Count 5.1 K/mm3 (4.4-11.0)
[2023-01-20 13:21] LABS: ALB/GLOB Ratio 0.8 RATIO (0.9-2.4); AST(SGOT) 79 U/L (15-37); Alanine Aminotransfer ALT/SGPT 26 U/L (13-56); Albumin, Serum 3.2 g/dL (3.2-5.0); Alkaline Phosphatase 203 U/L (45-117); Anion Gap 11 (5-15); BUN 8 mg/dL (7-18); BUN/Creat Ratio 17.1 RATIO (10-20); Calcium,Total 9.2 mg/dL (8.5-10.1); Chloride 81 mmol/L (98-107); Cholesterol 191 mg/dL (200); Creatinine, Serum 0.47 mg/dL (0.55-1.02); EST Glomerular Filtration Rate 139 mL/min (>60); Est Glom Filt Rate - Afr Amer 168 mL/min (>60); Globulin 4.1 g/dL (2.2-4.2); Glucose 114 mg/dL (74-106); High Density Lipoprotein 119 mg/dL; Potassium 2.7 mmol/L (3.5-5.1); Protein, Total 7.3 g/dL (6.4-8.2); Sodium Level 125 mmol/L (136-145); T4 Free Direct 1.45 ng/dL (0.76-1.46); Thyroid Stim Hormone (TSH) 0.99 uIU/mL (0.358-3.74); Triglycerides 70 mg/dL; Very Low Density Lipoprotein 14 mg/dL (5-40)
== END | disposition home or self-care (01) ==
LOC: BIMLAB 10:34
PROVIDERS: PCP Internal Medicine; Referring Provider Internal Medicine; Visit Provider Internal Medicine
DX: I10 Essential (primary) hypertension (principal); E78.5 Hyperlipidemia, unspecified; M85.80 Other specified disorders of bone density and structure, unspecified site
CPT/HCPCS: 36415; 80053; 80061; 84439; 84443; 85025

== ENCOUNTER 2023-02-01 10:45 | Outpatient (RCR) | payer MEDICARE, OTHER, SELFPAY ==
[2023-01-25 09:15] VITALS: BP 109/50; PULSE 70; RESP 16; TEMP 36.2; BMI 23.5
--- NOTE | 2023-01-25 12:34 | PCM.WC.HP ---
History of Present Illness Date of Service: 01/25/23 Chief Complaint: Follow-up on her right lower leg lateral area wound nonhealing since at least November. History of Wound: 72-year-old white female in [place] where she is living during the winter. She had a growth removed from her right lateral lower leg. She is still not sure if it is cancer or not. Was removed only by her regular doctor not a Derm doctor. Still open to the subcutaneous skin. She saw her own doctor up here and she was referred to us from her and put on cephalexin. Recently she was taken off her Lasix and has terrible edema of her lower extremities and abdomen. Patient states she has gained 9 pounds PFSH Medical History Age-related physical debility Arthritis Bleeding ulcer Broken hip Carotid stenosis, right Cellulitis of right leg Cirrhosis Dermatitis Elevated liver enzymes GERD (gastroesophageal reflux disease) History of skin cancer Hx of staphylococcal infection Hypertension Hypokalemia Hyponatremia Hypotension Left hip pain Osteoporosis Post-menopausal Screening for thyroid disorder Ulcer of right leg Varicose veins of both lower extremities Vertigo Home Medications alendronate 70 mg tablet (Fosamax) 70 mg PO QWEEK #30 tabs 04/12/22 [Rx Last Taken Unknown] spironolactone 50 mg tablet 50 mg PO DAILY #90 tabs 04/12/22 [Rx Last Taken Unknown] pantoprazole 40 mg tablet,delayed release 40 mg PO DAILY #90 tabs 04/22/22 [Rx Last Taken Unknown] nadolol 20 mg tablet See Rx Instructions .Route .COMPLEX #90 tabs 12/01/22 [Rx Last Taken Unknown] cephalexin 500 mg capsule 500 mg PO TID #21 caps 01/20/23 [Rx Last Taken Unknown] potassium chloride 20 mEq tablet,extended release(part/cryst) 40 meq PO BID 1 week #28 tabs 01/20/23 [Rx Last Taken Unknown] sodium chloride 1,000 mg soluble tablet mg PO 01/20/23 [History Last Taken Unknown] triamcinolone acetonide 0.1 % topical ointment 1 applic topical DAILY PRN Dermatitis #80 grams 01/20/23 [Rx Last Taken Unknown] Allergy/AdvReac Type Severity Reaction Status Date / Time chlorhexidine Allergy Mild Other Verified 01/25/23 09:43 [From [facility]] Family History Mother Heart disease Father Heart disease Surgical History History of hysterectomy History of knee replacement History of left hip replacement Social History Smoking Status: Never smoker alcohol intake: current alcohol intake frequency: 0-2 drinks per day Alcohol type: wine substance use type: does not use ROS Constitutional Constitutional: Reports systems reviewed and no addt'l complaints, except as documented Eyes Eyes: Reports systems reviewed and no addt'l complaints, except as documented ENT HEENT: Reports systems reviewed and no addt'l complaints, except as documented Cardiovascular Cardiovascular: Reports systems reviewed and no addt'l complaints, except as documented Respiratory/Chest Respiratory/Chest: Reports systems reviewed and no addt'l complaints, except as documented Gastrointestinal Gastrointestinal: Reports systems reviewed and no addt'l complaints, except as documented Genitourinary Genitourinary: Reports systems reviewed and no addt'l complaints, except as documented Musculoskeletal Musculoskeletal: Reports systems reviewed and no addt'l complaints, except as documented Integumentary Integumentary: Reports skin pain, skin swelling, wounds and other Details: Nonhealing open wound from a removal of a lesion on her right lower leg since November Has not really been using anything but a dressing on it. Neurologic Neurologic: Reports systems reviewed and no addt'l complaints, except as documented Psychiatric Psychiatric: Reports systems reviewed and no addt'l complaints, except as documented Endocrine Endocrinology: Reports systems reviewed and no addt'l complaints, except as documented Hematologic/Lymphatic Hematologic/Lymphatic: Reports systems reviewed and no addt'l complaints, except as documented Allergic/Immunologic Allergic/Immunologic: Reports systems reviewed and no addt'l complaints, except as documented Vital Signs Vital Signs Vital Signs: 01/25/23 09:15 Temperature 97.1 F L Temperature Source Temporal Pulse Rate 70 Respiratory Rate 16 Blood Pressure 109/50 L Blood Pressure Mean 69 Blood Pressure Source Monitor Blood Pressure Position Sitting Blood Pressure Location Left Arm Oxygen Delivery Method Room Air Weight Weight: 137 lb Body Mass Index (BMI) 23.5 Physical Exam Const oriented x3 General Appearance: cooperative Exam Limitations: no limitations HEENT normocephalic Head and Scalp: normal to inspection Face and Sinus: normal facial exam Nose: external nose normal External Ear: external ears normal Eyes PERRL General Eye: normal appearance of both eyes Neck full ROM General: normal visual inspection Resp normal respiratory effort Effort and Inspection: able to speak in complete sentences Auscultation: clear to auscultation bilaterally Cardio regular rate and regular rhythm Palpation: normal PMI Rate: regular rate Rhythm: regular rhythm GI Auscultation: normoactive bowel sounds Palpation: soft and no hepatosplenomegaly Extremity Extremity Narrative: Edema from at least knees down to even toes like little sausages. Discoloration of her lower legs from probably peripheral vascular disease. She does have obvious varicosities. General Extremity: normal exam except as noted Skin General Skin Exam: erythema and venous stasis Wounds: wounds noted Wound Narrative: Rather large size of a $0.50 piece full-thickness open wound on the right lateral leg. We will try to get studies from the other doctor. Neuro oriented x3 Psych Appearance: grossly normal Speech: normal speech Thought Content: normal thought content Judgement: judgement good Debridement Note Debridement Note Wound debrided: Right lower extremity open wound Laterality: Right Type of Debridement: Excisional debridement Anesthesia Used: 4% Lidocaine Solution and 5% Lidocaine Gel Depth: Down to and including healthy tissue and in the subcutaneous layer Percentage of wound debrided: 100 Instrument Used: 7mm curette Tissue Removed: Fibrin Severity: Limited To Skin Breakdown Amount of bleeding with debridement: Mild Bleeding Controlled with: Compression and gauze Patient tolerated procedure: Patient tolerated procedure well Post-Debridement Measurements and Additional Note: Post-Debridement Measurements/Treatment - Nurse 1 - General Ulcer Assessment Start: 01/25/23 09:11 Freq: Status: Active Protocol: SAHIL Activity Type Activity Date Activity User E-sign Co-sign Detail Recorded Client Recorded Date Recorded By Document 01/25/23 09:15 [facility] [id number] 01/25/23 09:39 [facility] 01/25/23 09:15 - Today's Visit Information Type of service Initial Visit Arrival Mode Ambulatory,Cane Transfer Assistance None Patient Identification Verified (Name & Yes ) Patient Requires Transmission-Based No Precautions Height and Weight Height 5 ft 4 in Weight 137 lb Weight in Pounds 137.0 lbs Weight Measurement Method Stated by Patient Body Mass Index (BMI) 23.5 BMI Classification Normal BSA - [place] 1.67 Vital Signs Temperature (97.8 F-99.1 F) 97.1 F L Temperature Source Temporal Pulse Rate (60-100) 70 Pulse Location Monitor Respiratory Rate (12-18) 16 Respiratory rate source Observation Oxygen Delivery Method Room Air Blood Pressure (90/60-120/80) 109/50 L Blood Pressure Mean 69 Source Monitor Position Sitting Blood Pressure Location Left Arm History Since Last Visit- (Skip if this is Patient's initial visit) Left Footwear Regular Shoe Right Footwear Regular Shoe Pain Scale: 0-10 Numeric Is Patient Pain Free? Yes Lower Extremity Assessment/ Foot Assessment/ Toe Nail Assessment Right -Posterior Tibial Palpable No -Posterior Tibial Doppler Monophasic -Dorsalis Pedis Doppler Monophasic -Extremity Color Hyperpigmented -Hair Growth on Legs No -Hair Growth on Toes No -Temperature of Extremity Cool -Thick Yes -Discolored Yes -Deformed No -Improper Length & Hygeine No Left -Posterior Tibial Palpable No -Posterior Tibial Doppler Monophasic -Dorsalis Pedis Doppler Monophasic -Extremity Color Hyperpigmented -Hair Growth on Legs No -Hair Growth on Toes No -Temperature of Extremity Cool -Thick Yes -Discolored Yes -Deformed No -Improper Length & Hygeine No Neuropathy Assessment Feet - Top Side and Bottom <Entered> (a) Communication Assessment Preferred language Uzbek Oenologist Required No Able to Read Yes Able to Write Yes Communication Tools None Right Hearing Abillity Normal Left Hearing Abillity Normal Visual Assistive Devices Glasses Teaching Assessment Preferences Verbal,Written, Audio/Visual, Demonstration Barriers to Learning None Readiness To Learn Excellent Willingness to Engage in Self Management High Activies Readiness to Engage in Self Management High Activities Anxiety Level Calm Cooperation Cooperative Perception Coherent Interest in Health Problem Asks Questions Education Importance Acknowledges Need Does Patient Smoke tobacco or other No substances Smoking Status Never smoker Is Patient Diabetic No Functional Assessment Recent Decline in Ability to Perform Denies Any Declines Culture/Yazidism/Machine Plug Shaper Cultural/Yazidism Needs that may affect No Treatment Plan Teaching: Wound Center *Welcome to the Wound Center -Person Taught Patient -Teaching Method Discussion -Response to teaching Verbalize understanding Welcome to the Wound Care Center [place] (a) 1 - + WC - Nurse 1 - General Ulcer Measurement Start: 01/25/23 09:11 Freq: Status: Active Protocol: Activity Type Activity Date Activity User E-sign Co-sign Detail Recorded Client Recorded Date Recorded By Document 01/25/23 09:15 [facility] [id number] 01/25/23 09:39 [facility] 01/25/23 09:15 Wound Center Nurse 1 #1- R VICENTA JAMESON (P/O BASAL CELL CA) -Combined with other wound No -Current Size (cm) - Length 3.2 -Current Size (cm) - Width 3 -Current Size (cm) - Depth 0.2 -Total Square Cm 9.6 -Date of Last Picture (Recall this 01/25/23 field) -Photo Taken Yes -Epithelialization None Present -Tunneling No -Undermining/Tunneling No -Circular Undermining No -Exudate Amt Medium -Exudate Type Serosanguineous -Wound Margin Distinct, Outline Attached -Granulation Amt Small (1-33%) -Granulation Quality Red -Slough/Fibrin Yes -Necrosis Amt Large (67-100%) -Necrotic Tissue Type Adherent Slough -Texture (Elif-wound Skin Appearance) Assessed, Scarring -Moisture (Elif-wound Skin Appearance) Assessed -Color (Elif-wound Skin Appearance) Assessed, Erythema -Temperature (Elif-wound Skin No Abnormality Appearance) (Pt Warm) -Tenderness on Palpation (Elif-wound Yes Skin Appearance) -Ulcer Cleansing Soap and Water -Foul Odor after Cleansing No -Anesthetic Used 5% Lidocaine Gel Lower Limb Edema Present Yes Right Calf (cm) 37.1 Right Ankle (cm) 22.7 Left Calf (cm) 32.9 Left Ankle (cm) 21.2 WC - Nurse 2 - General Ulcer CM Notes Start: 01/25/23 09:11 Freq: Status: Active Protocol: Activity Type Activity Date Activity User E-sign Co-sign Detail Recorded Client Recorded Date Recorded By Document 01/25/23 09:55 MW [id number] 01/25/23 10:02 MW 01/25/23 09:55 Wound Center Nurse 2 #1- Deepika JAMESON (P/O BASAL CELL CA) -Time 09:56 -Correct Patient Yes -Correct Side, Site, Position Yes -Correct Procedure Yes -Procedure Performed Yes -Type of Procedure Debridement -Clinical Debridement Subcutaneous -Tissue Removed Subcutaneous -Post Debridement (cm) - Length 3.5 -Post Debridement (cm) - Width 3.0 -Post Debridement (cm) - Depth 0.2 -Total Square (Post) (cm) 10.50 -Area of Debridement (cm) - Length 3.5 -Area of Debridement (cm) - Width 3.0 -Total Square (Area) (cm) 10.50 -Tunneling No -Undermining/Tunneling No -Circular Undermining No -Wound/Ulcer Outcome Not Healed -Ulcer Cleansing Rinsed/ Irrigated with Saline -Foul Odor after Cleansing No -Bioengineered Tissue No -Bleeding Controlled with Pressure -Treatment Response Procedure Tolerated Well -Offloading No -Debridement - Subq, 1st 20sq cm Yes Pain Scale: 0-10 Numeric Is Patient Pain Free? Yes - Nurse 3 - General Ulcer D/C NN Start: 01/25/23 09:11 Freq: Status: Active Protocol: Activity Type Activity Date Activity User E-sign Co-sign Detail Recorded Client Recorded Date Recorded By Document 01/25/23 10:42 [id number] 01/25/23 10:43 RB 01/25/23 10:42 Wound Care Center Nurse 3 #1- R LAT LE (P/O BASAL CELL CA) -Ulcer Cleansing Rinsed/ Irrigated with Saline -Primary Dressing Applied Aquacel Extra, NonAdherent Contact Layer -Primary Dressing Covered/Secured with Dry Gauze,Dry Gauze & Roll Gauze,Secured with Tape -Aquacel Extra 1 Right -Tubular Bandage Single Layer -Size of Tubigrip Used Size D -Size D ($) 1 Left -Tubular Bandage Single Layer -Size of Tubigrip Used Size D -Size D ($) 1 Treatment Response Procedure Tolerated Well Pain Scale: 0-10 Numeric Is Patient Pain Free? Yes Teaching: Wound Center Compression Wraps & Stockings -Person Taught Patient -Teaching Method Discussion, Demonstration -Response to teaching Verbalize understanding Dressing Your Wound -Person Taught Patient -Teaching Method Discussion, Demonstration -Response to teaching Verbalize understanding WC - Visit Discharge Discharge Condition Stable Ambulatory Status Ambulatory,Cane Transportation Private Auto Medication Reconcilliation completed & No provided to patient/care provider Clinical Summary of Care Provided Yes Assessment/Plan Assessment/Plan (1) Ulcer of right leg: CODE(S): L97.919 - Non-pressure chronic ulcer of unspecified part of right lower leg with unspecified severity PLAN: Wash the leg with antibacterial soap apply Aquacel extra moistened with Adaptic over top gauze dressing and Zehra single-layer Tubigrip to the bilateral lower legs Follow-up in 1 week Patient needs to call About the edema (2) Varicose veins of both lower extremities: CODE(S): I83.93 - Asymptomatic varicose veins of bilateral lower extremities (3) Edema of both lower extremities: CODE(S): R60.0 - Localized edema
[2023-02-01 11:13] VITALS: BP 105/54; PULSE 66; RESP 16; TEMP 36.2; BMI 23.5
--- NOTE | 2023-02-01 12:22 | PCM.WC.PN ---
History of Present Illness Date of Service: 02/01/23 Chief Complaint: Follow-up on her right lower leg lateral area wound nonhealing since at least November. History of Wound: 72-year-old white female in [place] where she is living during the winter. She had a growth removed from her right lateral lower leg. She is still not sure if it is cancer or not. Was removed only by her regular doctor not a Derm doctor. Still open to the subcutaneous skin. She saw her own doctor up here and she was referred to us from her and put on cephalexin. Recently she was taken off her Lasix and has terrible edema of her lower extremities and abdomen. Patient states she has gained 9 pounds Progress of Wound: Wound cultures came back positive and patient will be started on Levaquin 500 mg daily for 14 days Measurements were slightly smaller patient was doing well on Aquacel extra we will continue with the same treatment. Patient was also approved for EpiFix but will wait 1 week because of the infection. Subjective Subjective Patient is happy with outcomes Objective Data Objective Data The surrounding skin around the wound looks dark tanned and a lot of possible skin issues such as basal cell. Huge black freckles around in her darkened skin. The wound itself is measuring smaller. Vital Signs: Vital Signs Temp Pulse Resp BP O2 Del Method 97.2 F L 66 16 105/54 L Room Air 02/01/23 11:13 02/01/23 11:13 02/01/23 11:13 02/01/23 11:13 02/01/23 11:13 Oxygen Delivery Method Room Air Weight: 137 lb Body Mass Index (BMI) 23.5 Lab / Micro Data Micro: Microbiology 01/25/23 10:00 Wound Abcess - Leg, Right Gram Stain - Final 01/25/23 10:00 Wound Abcess - Leg, Right Wound Culture - Final Pseudomonas aeruginosa Staphylococcus pseudintermediu 01/25/23 10:00 Wound Abcess - Leg, Right Anaerobic Culture - Final No anaerobic bacteria isolated. Physical Exam Const oriented x3 General Appearance: cooperative Exam Limitations: no limitations HEENT normocephalic Head and Scalp: normal to inspection Face and Sinus: normal facial exam Nose: external nose normal External Ear: external ears normal Eyes PERRL General Eye: normal appearance of both eyes Neck full ROM General: normal visual inspection Resp normal respiratory effort Effort and Inspection: able to speak in complete sentences Auscultation: clear to auscultation bilaterally Cardio regular rate and regular rhythm Palpation: normal PMI Rate: regular rate Rhythm: regular rhythm GI Auscultation: normoactive bowel sounds Palpation: soft and no hepatosplenomegaly Extremity Extremity Narrative: Edema from at least knees down to even toes like little sausages. Discoloration of her lower legs from probably peripheral vascular disease. She does have obvious varicosities. General Extremity: normal exam except as noted Skin General Skin Exam: erythema and venous stasis Wounds: wounds noted Wound Narrative: Rather large size of a $0.50 piece full-thickness open wound on the right lateral leg. We will try to get studies from the other doctor. Neuro oriented x3 Psych Appearance: grossly normal Speech: normal speech Thought Content: normal thought content Judgement: judgement good Debridement Note Debridement Note Wound debrided: Right lateral lower leg traumatic opening Type of Debridement: Excisional debridement Anesthesia Used: 5% Lidocaine Gel Depth: Down to and including healthy tissue and in the subcutaneous layer Percentage of wound debrided: 100 Instrument Used: 7mm curette Tissue Removed: Fibrin Severity: Fat Layer Exposed Amount of bleeding with debridement: Mild Bleeding Controlled with: Compression and gauze Patient tolerated procedure: Patient tolerated procedure well Post-Debridement Measurements and Additional Note: Post-Debridement Measurements/Treatment - Nurse 1 - General Ulcer Assessment Start: 01/25/23 09:11 Freq: Status: Active Protocol: .RAFFI Activity Type Activity Date Activity User E-sign Co-sign Detail Recorded Client Recorded Date Recorded By Document 01/25/23 09:15 [facility] [id number] 01/25/23 09:39 [facility] Document 02/01/23 11:13 [facility] [id number] 02/01/23 11:20 [facility] 01/25/23 02/01/23 09:15 11:13 - Today's Visit Information Type of service Initial Visit Follow-up Visit (Physician/PHYSICIAN RELATIONS REPRESENTATIVE ) Arrival Mode Ambulatory,Cane Ambulatory Transfer Assistance None None Patient Identification Verified (Name & Yes Yes ) Patient Requires Transmission-Based No No Precautions Height and Weight Height 5 ft 4 in Weight 137 lb Weight in Pounds 137.0 lbs Weight Measurement Method Stated by Patient Body Mass Index (BMI) 23.5 23.5 BMI Classification Normal Normal BSA - [place] 1.67 Vital Signs Temperature (97.8 F-99.1 F) 97.1 F L 97.2 F L Temperature Source Temporal Temporal Pulse Rate (60-100) 70 66 Pulse Location Monitor Monitor Respiratory Rate (12-18) 16 16 Respiratory rate source Observation Observation Oxygen Delivery Method Room Air Room Air Blood Pressure (90/60-120/80) 109/50 L 105/54 L Blood Pressure Mean (mm Hg) 69 71 Source Monitor Monitor Position Sitting Sitting Blood Pressure Location Left Arm Left Arm History Since Last Visit- (Skip if this is Patient's initial visit) Have you changed medications since your No last visit? Any new allergies or adverse reactions No Had a fall/change in ADL's that may No increase risk of falls Signs or symptoms of abuse and/or No neglect since last visit Have you been in the hospital since your No last visit? Has dressing in place as prescribed Yes Has compression in place as prescribed No Has offloadiing in place as prescribed N/A Experienced any changes in pain level or No management Left Footwear Regular Shoe Regular Shoe Right Footwear Regular Shoe Regular Shoe Pain Scale: 0-10 Numeric Is Patient Pain Free? Yes Yes Lower Extremity Assessment/ Foot Assessment/ Toe Nail Assessment Right -Posterior Tibial Palpable No -Posterior Tibial Doppler Monophasic -Dorsalis Pedis Doppler Monophasic -Extremity Color Hyperpigmented -Hair Growth on Legs No -Hair Growth on Toes No -Temperature of Extremity Cool -Thick Yes -Discolored Yes -Deformed No -Improper Length & Hygeine No Left -Posterior Tibial Palpable No -Posterior Tibial Doppler Monophasic -Dorsalis Pedis Doppler Monophasic -Extremity Color Hyperpigmented -Hair Growth on Legs No -Hair Growth on Toes No -Temperature of Extremity Cool -Thick Yes -Discolored Yes -Deformed No -Improper Length & Hygeine No Neuropathy Assessment Feet - Top Side and Bottom <Entered> (a) Communication Assessment Preferred language Martiniquais Ambulatory Care Coordinator Required No Able to Read Yes Able to Write Yes Communication Tools None Right Hearing Abillity Normal Left Hearing Abillity Normal Visual Assistive Devices Glasses Teaching Assessment Preferences Verbal,Written, Audio/Visual, Demonstration Barriers to Learning None Readiness To Learn Excellent Willingness to Engage in Self Management High Activies Readiness to Engage in Self Management High Activities Anxiety Level Calm Cooperation Cooperative Perception Coherent Interest in Health Problem Asks Questions Education Importance Acknowledges Need Does Patient Smoke tobacco or other No substances Smoking Status Never smoker Is Patient Diabetic No Functional Assessment Recent Decline in Ability to Perform Denies Any Declines 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 Cultural/Rastafarian Needs that may affect No Treatment Plan Teaching: Wound Center *Welcome to the Wound Center -Person Taught Patient -Teaching Method Discussion -Response to teaching Verbalize understanding Welcome to the Wound Care Center Armenian (a) 1 - + WC - Nurse 1 - General Ulcer Measurement Start: 01/25/23 09:11 Freq: Status: Active Protocol: Activity Type Activity Date Activity User E-sign Co-sign Detail Recorded Client Recorded Date Recorded By Document 01/25/23 09:15 [facility] [id number] 01/25/23 09:39 BM Document 02/01/23 11:13 [facility] [id number] 02/01/23 11:20 [facility] 01/25/23 02/01/23 09:15 11:13 Wound Center Nurse 1 #1- R LAT LE (P/O BASAL CELL CA) -Combined with other wound No No -Current Size (cm) - Length 3.2 3.1 -Current Size (cm) - Width 3 2.5 -Current Size (cm) - Depth 0.2 0.2 -Total Square Cm 9.6 7.75 -Date of Last Picture (Recall this 01/25/23 02/01/23 field) -Photo Taken Yes Yes -Epithelialization None Present None Present -Tunneling No No -Undermining/Tunneling No No -Circular Undermining No No -Exudate Amt Medium Medium -Exudate Type Serosanguineous Serosanguineous -Wound Margin Distinct, Distinct, Outline Outline Attached Attached -Granulation Amt Small (1-33%) Small (1-33%) -Granulation Quality Red Red -Slough/Fibrin Yes Yes -Necrosis Amt Large (67-100%) Large (67-100%) -Necrotic Tissue Type Adherent Slough Adherent Slough -Texture (Elif-wound Skin Appearance) Assessed, Assessed, Scarring Scarring -Moisture (Elif-wound Skin Appearance) Assessed Assessed,Dry/ Scaly -Color (Elif-wound Skin Appearance) Assessed, Assessed Erythema -Temperature (Elif-wound Skin No Abnormality No Abnormality Appearance) (Pt Warm) (Pt Warm) -Tenderness on Palpation (Elif-wound Yes No Skin Appearance) -Ulcer Cleansing Soap and Water Rinsed/ Irrigated with Saline -Foul Odor after Cleansing No No -Anesthetic Used 5% Lidocaine 5% Lidocaine Gel Gel Lower Limb Edema Present Yes Yes Right Calf (cm) 37.1 33.9 Right Ankle (cm) 22.7 22.6 Left Calf (cm) 32.9 Left Ankle (cm) 21.2 WC - Nurse 2 - General Ulcer CM Notes Start: 01/25/23 09:11 Freq: Status: Active Protocol: Activity Type Activity Date Activity User E-sign Co-sign Detail Recorded Client Recorded Date Recorded By Document 01/25/23 09:55 MW [id number] 01/25/23 10:02 MW Document 02/01/23 11:28 MW [id number] 02/01/23 11:32 MW 01/25/23 02/01/23 09:55 11:28 Wound Center Nurse 2 #1- R LAT LE (P/O BASAL CELL CA) -Time 09:56 11:30 -Correct Patient Yes Yes -Correct Side, Site, Position Yes Yes -Correct Procedure Yes Yes -Procedure Performed Yes Yes -Type of Procedure Debridement Debridement -Clinical Debridement Subcutaneous Subcutaneous -Tissue Removed Subcutaneous Subcutaneous -Post Debridement (cm) - Length 3.5 3.2 -Post Debridement (cm) - Width 3.0 2.5 -Post Debridement (cm) - Depth 0.2 0.1 -Total Square (Post) (cm) 10.50 8.00 -Area of Debridement (cm) - Length 3.5 3.2 -Area of Debridement (cm) - Width 3.0 2.5 -Total Square (Area) (cm) 10.50 8.00 -Tunneling No No -Undermining/Tunneling No No -Circular Undermining No No -Wound/Ulcer Outcome Not Healed Not Healed -Ulcer Cleansing Rinsed/ Rinsed/ Irrigated with Irrigated with Saline Saline -Foul Odor after Cleansing No No -Bioengineered Tissue No No -Bleeding Controlled with Pressure Pressure -Treatment Response Procedure Procedure Tolerated Well Tolerated Well -Offloading No No -Debridement - Subq, 1st 20sq cm Yes Yes Pain Scale: 0-10 Numeric Is Patient Pain Free? Yes Yes HERMILA - Nurse 3 - General Ulcer D/C NN Start: 01/25/23 09:11 Freq: Status: Active Protocol: Activity Type Activity Date Activity User E-sign Co-sign Detail Recorded Client Recorded Date Recorded By Document 01/25/23 10:42 RB [id number] 01/25/23 10:43 RB Document 02/01/23 11:32 MW [id number] 02/01/23 11:38 MW 01/25/23 02/01/23 10:42 11:32 Wound Care Center Nurse 3 #1- R LAT LE (P/O BASAL CELL CA) -Ulcer Cleansing Rinsed/ Rinsed/ Irrigated with Irrigated with Saline Saline -Foul Odor after Cleansing No -Negative Pressure Wound Therapy N/A -Primary Dressing Applied Aquacel Extra, Aquacel Extra, NonAdherent NonAdherent Contact Layer Contact Layer -Primary Dressing Covered/Secured with Dry Gauze,Dry Dry Gauze & Gauze & Roll Roll Gauze, Gauze,Secured Secured with with Tape Tape -Aquacel Extra 1 1 Right -Compression Wrap Colton Wrap -Tubular Bandage Single Layer -Size of Tubigrip Used Size D -Size D ($) 1 Left -Tubular Bandage Single Layer -Size of Tubigrip Used Size D -Size D ($) 1 Treatment Response Procedure Procedure Tolerated Well Tolerated Well Pain Scale: 0-10 Numeric Is Patient Pain Free? Yes Yes Teaching: Wound Center Compression Wraps & Stockings -Person Taught Patient -Teaching Method Discussion, Demonstration -Response to teaching Verbalize understanding Dressing Your Wound -Person Taught Patient -Teaching Method Discussion, Demonstration -Response to teaching Verbalize understanding WC - Visit Discharge Discharge Condition Stable Stable Ambulatory Status Ambulatory,Cane Ambulatory,Cane Transportation Private Auto Private Auto Medication Reconcilliation completed & No provided to patient/care provider Clinical Summary of Care Provided Yes Assessment/Plan Assessment/Plan (1) Ulcer of right leg: CODE(S): L97.919 - Non-pressure chronic ulcer of unspecified part of right lower leg with unspecified severity PLAN: Wash the leg with antibacterial soap apply Aquacel extra moistened with Adaptic over top gauze dressing and Zehra single-layer Tubigrip to the bilateral lower legs Follow-up in 1 week Patient needs to call About the edema (2) Varicose veins of both lower extremities: CODE(S): I83.93 - Asymptomatic varicose veins of bilateral lower extremities (3) Edema of both lower extremities: CODE(S): R60.0 - Localized edema
== END 2023-02-01 23:59 | disposition home or self-care (01) ==
LOC: WC 10:45
PROVIDERS: PCP Internal Medicine; Referring Provider Internal Medicine; Visit Provider Nurse Practitioner
DX: I83.018 Varicose veins of right lower extremity with ulcer other part of lower leg (principal); L97.811 Non-pressure chronic ulcer of other part of right lower leg limited to breakdown of skin; I10 Essential (primary) hypertension; R60.0 Localized edema; Z79.83 Long term (current) use of bisphosphonates; K21.9 Gastro-esophageal reflux disease without esophagitis; Z79.899 Other long term (current) drug therapy; M19.90 Unspecified osteoarthritis, unspecified site; I83.92 Asymptomatic varicose veins of left lower extremity
CPT/HCPCS: 11042; 87070; 87075; 87077; 87186; 87205; 99213; G0463

== ENCOUNTER → 2023-02-08 | Outpatient (CLI) | payer MEDICARE, OTHER, SELFPAY ==
--- NOTE | 2023-02-08 12:00 | RAD_ITS ---
STUDY: X-RAY -LEG LENGTH (SCANOGRAM) REASON FOR STUDY: Female, 72 years old. Unequal leg length. TECHNIQUE: Frontal views of the pelvis and both lower extremities were obtained on 4 images. COMPARISON: None. FINDINGS: Osteopenia with left total hip arthroplasty, arthrosis of the right hip and bilateral total knee arthroplasties. On the right, the distance from the acetabular rim to the medial femorotibial compartment is 49.5 cm. Distance from the medial femorotibial compartment to the tibiotalar joint is 37 cm. Total distance from the acetabular rim to the tibiotalar joint is 86.5 cm. On the left, the distance from the acetabular rim to the medial femorotibial compartment is 45 cm. The distance from the medial femorotibial compartment to the tibiotalar joint equals 38.5 cm. Total distance from the acetabular rim to the tibiotalar joint is 83.5 cm. RAD/Bone Length IMPRESSION: Leg length discrepancy of 3 cm, right greater than left. Electronically Signed: Dre Guaman MD at 10:07 EDT ,
== END | disposition home or self-care (01) ==
LOC: RAD 11:55
PROVIDERS: PCP Internal Medicine; Referring Provider Specialist; Visit Provider Specialist
DX: M21.752 Unequal limb length (acquired), left femur (principal)
CPT/HCPCS: 77073

== ENCOUNTER 2023-03-01 09:30 | Outpatient (RCR) | payer MEDICARE, OTHER, SELFPAY ==
[2023-02-02 00:49] VITALS: BP 105/54; PULSE 66; RESP 16; TEMP 36.2; BMI 23.5
[2023-02-08 11:07] VITALS: BP 119/49; PULSE 66; RESP 16; TEMP 36.6; BMI 23.5
--- NOTE | 2023-02-08 11:49 | PN.PCM_ITS ---
History of Present Illness Date of Service: 02/08/23 Chief Complaint: Follow-up on her right lower leg lateral area wound nonhealing since at least November. History of Wound: 72-year-old white female in [place] where she is living during the winter. She had a growth removed from her right lateral lower leg. She is still not sure if it is cancer or not. Was removed only by her regular doctor not a Derm doctor. Still open to the subcutaneous skin. She saw her own doctor up here and she was referred to us from her and put on cephalexin. Recently she was taken off her Lasix and has terrible edema of her lower extremities and abdomen. Patient states she has gained 9 pounds Progress of Wound: All her measurements are smaller she still on her antibiotics wound looks very good we will start the EpiFix today with #1. Tolerated debridement better this week also she does get that rim of skin around the canister angulates so got all that off so the nice smooth transition from wound to normal skin. Subjective Subjective Patient is good with going on to the EpiFix will have to buy a boot for her legs so she does not get it wet Objective Data Objective Data As said above wound measures smaller skin looks good no sign of infection she is finishing up her antibiotics we will start the EpiFix #1 Vital Signs: Vital Signs Temp Pulse Resp BP O2 Del Method 97.9 F 66 16 119/49 L Room Air 02/08/23 11:07 02/08/23 11:07 02/08/23 11:07 02/08/23 11:07 02/08/23 11:07 Oxygen Delivery Method Room Air Weight: 137 lb Body Mass Index (BMI) 23.5 Physical Exam Const oriented x3 General Appearance: cooperative Exam Limitations: no limitations HEENT normocephalic Head and Scalp: normal to inspection Face and Sinus: normal facial exam Nose: external nose normal External Ear: external ears normal Eyes PERRL General Eye: normal appearance of both eyes Neck full ROM General: normal visual inspection Resp normal respiratory effort Effort and Inspection: able to speak in complete sentences Auscultation: clear to auscultation bilaterally Cardio regular rate and regular rhythm Palpation: normal PMI Rate: regular rate Rhythm: regular rhythm GI Auscultation: normoactive bowel sounds Palpation: soft and no hepatosplenomegaly Extremity Extremity Narrative: Edema from at least knees down to even toes like little sausages. Discoloration of her lower legs from probably peripheral vascular disease. She does have obvious varicosities. General Extremity: normal exam except as noted Skin General Skin Exam: erythema and venous stasis Wounds: wounds noted Wound Narrative: Rather large size of a $0.50 piece full-thickness open wound on the right lateral leg. We will try to get studies from the other doctor. Neuro oriented x3 Psych Appearance: grossly normal Speech: normal speech Thought Content: normal thought content Judgement: judgement good Debridement Note Debridement Note Wound debrided: Right lateral lower leg from trauma nonpressure Laterality: Right Type of Debridement: Excisional debridement Anesthesia Used: 5% Lidocaine Gel Depth: Down to and including healthy tissue Percentage of wound debrided: 100 Instrument Used: 7mm curette Tissue Removed: Fibrin and some devitalized tissue Severity: Limited To Skin Breakdown Amount of bleeding with debridement: Mild Bleeding Controlled with: Compression and gauze Patient tolerated procedure: Patient tolerated procedure well Post-Debridement Measurements and Additional Note: Post-Debridement Measurements/Treatment - Nurse 1 - General Ulcer Assessment Start: 02/08/23 11:06 Freq: Status: Active Protocol: WC.LOWEXT Activity Type Activity Date Activity User E-sign Co-sign Detail Recorded Client Recorded Date Recorded By Document 02/08/23 11:07 [facility] [id number] 02/08/23 11:13 [facility] 02/08/23 11:07 - Today's Visit Information Type of service Follow-up Visit (Physician/BUSINESS DEVELOPMENT SPECIALIST ) Arrival Mode Ambulatory Transfer Assistance None Patient Identification Verified (Name & Yes ) Patient Requires Transmission-Based No Precautions Height and Weight Body Mass Index (BMI) 23.5 BMI Classification Normal Vital Signs Temperature (97.8 F-99.1 F) 97.9 F Temperature Source Temporal Pulse Rate (60-100) 66 Pulse Location Monitor Respiratory Rate (12-18) 16 Respiratory rate source Observation Oxygen Delivery Method Room Air Blood Pressure (90/60-120/80) 119/49 L Blood Pressure Mean (mm Hg) 72 Source Monitor Position Sitting Blood Pressure Location Left Arm History Since Last Visit- (Skip if this is Patient's initial visit) Have you changed medications since your No last visit? Any new allergies or adverse reactions No Had a fall/change in ADL's that may No increase risk of falls Signs or symptoms of abuse and/or No neglect since last visit Have you been in the hospital since your No last visit? Has dressing in place as prescribed Yes Has compression in place as prescribed N/A Has offloadiing in place as prescribed N/A Experienced any changes in pain level or No management Left Footwear Regular Shoe Right Footwear Regular Shoe Other Footwear just wearing an colton to secure Pain Scale: 0-10 Numeric Is Patient Pain Free? Yes HERMILA - Nurse 1 - General Ulcer Measurement Start: 02/08/23 11:06 Freq: Status: Active Protocol: Activity Type Activity Date Activity User E-sign Co-sign Detail Recorded Client Recorded Date Recorded By Document 02/08/23 11:07 [facility] [id number] 02/08/23 11:13 [facility] 02/08/23 11:07 Wound Center Nurse 1 #1- R LAT LE (P/O BASAL CELL CA) -Combined with other wound No -Current Size (cm) - Length 2.8 -Current Size (cm) - Width 2.4 -Current Size (cm) - Depth 0.1 -Total Square Cm 6.72 -Date of Last Picture (Recall this 02/08/23 field) -Photo Taken Yes -Epithelialization Small 1-33% -Tunneling No -Undermining/Tunneling No -Circular Undermining No -Exudate Amt Medium -Exudate Type Serosanguineous -Wound Margin Distinct, Outline Attached -Granulation Amt Small (1-33%) -Granulation Quality Red -Slough/Fibrin Yes -Necrosis Amt Large (67-100%) -Necrotic Tissue Type Adherent Slough -Texture (Elif-wound Skin Appearance) Assessed, Scarring -Moisture (Elif-wound Skin Appearance) Assessed,Dry/ Scaly -Color (Elif-wound Skin Appearance) Assessed -Temperature (Elif-wound Skin No Abnormality Appearance) (Pt Warm) -Tenderness on Palpation (Elif-wound No Skin Appearance) -Ulcer Cleansing Rinsed/ Irrigated with Saline -Foul Odor after Cleansing No -Anesthetic Used 5% Lidocaine Gel Lower Limb Edema Present Yes Right Calf (cm) 34 Right Ankle (cm) 23.6 WC - Nurse 2 - General Ulcer CM Notes Start: 02/08/23 11:06 Freq: Status: Active Protocol: Activity Type Activity Date Activity User E-sign Co-sign Detail Recorded Client Recorded Date Recorded By Document 02/08/23 11:20 MW Desktop 02/08/23 11:30 MW 02/08/23 11:20 Wound Center Nurse 2 #1- Deepika JAMESON (P/O BASAL CELL CA) -Time 11:20 -Correct Patient Yes -Correct Side, Site, Position Yes -Correct Procedure Yes -Procedure Performed Yes -Type of Procedure Debridement -Clinical Debridement Subcutaneous -Tissue Removed Subcutaneous -Post Debridement (cm) - Length 2.5 -Post Debridement (cm) - Width 2.3 -Post Debridement (cm) - Depth 0.1 -Total Square (Post) (cm) 5.75 -Area of Debridement (cm) - Length 2.5 -Area of Debridement (cm) - Width 2.3 -Total Square (Area) (cm) 5.75 -Tunneling No -Undermining/Tunneling No -Circular Undermining No -Wound/Ulcer Outcome Not Healed -Ulcer Cleansing Rinsed/ Irrigated with Saline -Foul Odor after Cleansing No -Bioengineered Tissue Yes -Type of Bioengineered Tissue Epifix Mesh -Expiration Date 12/03/25 -Product Lot Number [id number] -Percent Used 100 -Lot number of Saline Used [id number] -Bleeding Controlled with Pressure -Treatment Response Procedure Tolerated Well -Offloading No -Debridement - Subq, 1st 20sq cm No -Apply Skin Sub - 1st 25 sq cm - Legs 1 -Epifix Mesh (per sq cm) 11 Pain Scale: 0-10 Numeric Is Patient Pain Free? Yes - Nurse 3 - General Ulcer D/C NN Start: 02/08/23 11:06 Freq: Status: Active Protocol: Activity Type Activity Date Activity User E-sign Co-sign Detail Recorded Client Recorded Date Recorded By Document 02/08/23 11:30 MW Desktop 02/08/23 11:31 MW 02/08/23 11:30 Wound Care Center Nurse 3 #1- Deepika JAMESON (P/O BASAL CELL CA) -Ulcer Cleansing Not Cleansed -Other Dressing ABD -Other Covering COLTON wrap Right -Lotion applied to leg before No compression wrap -Compression Wrap Colton Wrap Treatment Response Procedure Tolerated Well Pain Scale: 0-10 Numeric Is Patient Pain Free? Yes Teaching: Wound Center Dressing Your Wound -Person Taught Patient -Teaching Method Discussion -Response to teaching Verbalize understanding - Visit Discharge Discharge Condition Stable Ambulatory Status Ambulatory,Cane Transportation Private Auto Accompanied by self Medication Reconcilliation completed & No provided to patient/care provider Clinical Summary of Care Provided Yes Assessment/Plan Assessment/Plan (1) Ulcer of right leg: CODE(S): L97.919 - Non-pressure chronic ulcer of unspecified part of right lower leg with unspecified severity PLAN: EpiFix #1 applied to the leg with wound veil and Steri-Strips then a dry gauze dressing and Zehra. single-layer Tubigrip to the bilateral lower legs Follow-up in 1 week (2) Varicose veins of both lower extremities: CODE(S): I83.93 - Asymptomatic varicose veins of bilateral lower extremities (3) Edema of both lower extremities: CODE(S): R60.0 - Localized edema (4) Non-pressure ulcer of right lower extremity: CODE(S): L97.919 - Non-pressure chronic ulcer of unspecified part of right lower leg with unspecified severity
[2023-02-15 09:30] VITALS: BP 135/52; PULSE 68; RESP 18; TEMP 36.3; BMI 23.5
--- NOTE | 2023-02-15 09:56 | PCM.WC.PN ---
History of Present Illness Date of Service: 02/15/23 Chief Complaint: Follow-up on her right lower leg lateral area wound nonhealing since at least November. History of Wound: 72-year-old white female in [place] where she is living during the winter. She had a growth removed from her right lateral lower leg. She is still not sure if it is cancer or not. Was removed only by her regular doctor not a Derm doctor. Still open to the subcutaneous skin. She saw her own doctor up here and she was referred to us from her and put on cephalexin. Recently she was taken off her Lasix and has terrible edema of her lower extremities and abdomen. Patient states she has gained 9 pounds Progress of Wound: All her measurements are smaller in depth will continue the EpiFix today with #2. Tolerated debridement better this week also she does get that rim of skin around the canister angulates so got all that off so the nice smooth transition from wound to normal skin. Subjective Subjective Patient is pleased with outcomes Objective Data Objective Data Healing well edges of the wound are smooth and blending well with the skin surrounding the wound Vital Signs: Vital Signs Temp Pulse Resp BP O2 Del Method 97.4 F L 68 18 135/52 H Room Air 02/15/23 09:30 02/15/23 09:30 02/15/23 09:30 02/15/23 09:30 02/08/23 11:07 Oxygen Delivery Method Room Air Weight: 137 lb Body Mass Index (BMI) 23.5 Lab / Micro Data Attestation: I reviewed the patient's lab results. Physical Exam Const oriented x3 General Appearance: cooperative Exam Limitations: no limitations HEENT normocephalic Head and Scalp: normal to inspection Face and Sinus: normal facial exam Nose: external nose normal External Ear: external ears normal Eyes PERRL General Eye: normal appearance of both eyes Neck full ROM General: normal visual inspection Resp normal respiratory effort Effort and Inspection: able to speak in complete sentences Auscultation: clear to auscultation bilaterally Cardio regular rate and regular rhythm Palpation: normal PMI Rate: regular rate Rhythm: regular rhythm GI Auscultation: normoactive bowel sounds Palpation: soft and no hepatosplenomegaly Extremity Extremity Narrative: Edema from at least knees down to even toes like little sausages. Discoloration of her lower legs from probably peripheral vascular disease. She does have obvious varicosities. General Extremity: normal exam except as noted Skin General Skin Exam: erythema and venous stasis Wounds: wounds noted Wound Narrative: Rather large size of a $0.50 piece full-thickness open wound on the right lateral leg. We will try to get studies from the other doctor. Neuro oriented x3 Psych Appearance: grossly normal Speech: normal speech Thought Content: normal thought content Judgement: judgement good Debridement Note Debridement Note Wound debrided: Right lower leg traumatic wound Type of Debridement: Excisional debridement Anesthesia Used: 5% Lidocaine Gel Depth: Down to and including healthy tissue Percentage of wound debrided: 100 Instrument Used: 5mm curette Tissue Removed: Fibrin Severity: Fat Layer Exposed Amount of bleeding with debridement: Mild Bleeding Controlled with: Compression and gauze Patient tolerated procedure: Patient tolerated procedure well Post-Debridement Measurements and Additional Note: Post-Debridement Measurements/Treatment - Nurse 1 - General Ulcer Assessment Start: 02/08/23 11:06 Freq: Status: Active Protocol: SAHIL Activity Type Activity Date Activity User E-sign Co-sign Detail Recorded Client Recorded Date Recorded By Document 02/08/23 11:07 [facility] [id number] 02/08/23 11:13 [facility] Document 02/15/23 09:30 [id number] 02/15/23 09:34 RB 02/08/23 02/15/23 11:07 09:30 - Today's Visit Information Type of service Follow-up Visit Follow-up Visit (Physician/[facility] [facility] (Physician/[facility] [facility] [facility] ) ) Arrival Mode Ambulatory Ambulatory Transfer Assistance None None Patient Identification Verified (Name & Yes Yes ) Patient Requires Transmission-Based No No Precautions Height and Weight Body Mass Index (BMI) 23.5 23.5 BMI Classification Normal Normal Vital Signs Temperature (97.8 F-99.1 F) 97.9 F 97.4 F L Temperature Source Temporal Temporal Pulse Rate (60-100) 66 68 Pulse Location Monitor Monitor Respiratory Rate (12-18) 16 18 Respiratory rate source Observation Observation Oxygen Delivery Method Room Air Blood Pressure (90/60-120/80) 119/49 L 135/52 H Blood Pressure Mean (mm Hg) 72 79 Source Monitor Monitor Position Sitting Semi-Fowlers Blood Pressure Location Left Arm Left Arm History Since Last Visit- (Skip if this is Patient's initial visit) Have you changed medications since your No No last visit? Any new allergies or adverse reactions No No Had a fall/change in ADL's that may No No increase risk of falls Signs or symptoms of abuse and/or No No neglect since last visit Have you been in the hospital since your No No last visit? Has dressing in place as prescribed Yes Yes Has compression in place as prescribed N/A Yes Has offloadiing in place as prescribed N/A No Experienced any changes in pain level or No No management Left Footwear Regular Shoe Right Footwear Regular Shoe Other Footwear just wearing an colton to secure Pain Scale: 0-10 Numeric Is Patient Pain Free? Yes Yes WC - Nurse 1 - General Ulcer Measurement Start: 02/08/23 11:06 Freq: Status: Active Protocol: Activity Type Activity Date Activity User E-sign Co-sign Detail Recorded Client Recorded Date Recorded By Document 02/08/23 11:07 [facility] [id number] 02/08/23 11:13 [facility] Document 02/15/23 09:30 RB [id number] 02/15/23 09:34 RB 02/08/23 02/15/23 11:07 09:30 Wound Center Nurse 1 #1- R LAT LE (P/O BASAL CELL CA) -Combined with other wound No No -Current Size (cm) - Length 2.8 3.1 -Current Size (cm) - Width 2.4 2.6 -Current Size (cm) - Depth 0.1 0.1 -Total Square Cm 6.72 8.06 -Date of Last Picture (Recall this 02/08/23 field) -Photo Taken Yes Yes -Epithelialization Small 1-33% -Tunneling No No -Undermining/Tunneling No No -Circular Undermining No No -Exudate Amt Medium Medium -Exudate Type Serosanguineous Serosanguineous -Wound Margin Distinct, Distinct, Outline Outline Attached Attached -Granulation Amt Small (1-33%) Medium (34-66%) -Granulation Quality Red [place] -Slough/Fibrin Yes Yes -Necrosis Amt Large (67-100%) Medium (34-66%) -Necrotic Tissue Type Adherent Slough Adherent Slough -Structure Exposed N/A -Texture (Elif-wound Skin Appearance) Assessed, Assessed Scarring -Moisture (Elif-wound Skin Appearance) Assessed,Dry/ Assessed Scaly -Color (Elif-wound Skin Appearance) Assessed Assessed -Temperature (Elif-wound Skin No Abnormality No Abnormality Appearance) (Pt Warm) (Pt Warm) -Tenderness on Palpation (Elif-wound No No Skin Appearance) -Ulcer Cleansing Rinsed/ Wound Cleanser Irrigated with Saline -Foul Odor after Cleansing No No -Anesthetic Used 5% Lidocaine 5% Lidocaine Gel Gel Lower Limb Edema Present Yes Right Calf (cm) 34 Right Ankle (cm) 23.6 WC - Nurse 2 - General Ulcer CM Notes Start: 02/08/23 11:06 Freq: Status: Active Protocol: Activity Type Activity Date Activity User E-sign Co-sign Detail Recorded Client Recorded Date Recorded By Document 02/08/23 11:20 MW Desktop 02/08/23 11:30 MW Document 02/15/23 09:37 MW [id number] 02/15/23 09:45 MW 02/08/23 02/15/23 11:20 09:37 Wound Center Nurse 2 #1- R LAT LE (P/O BASAL CELL CA) -Time 11:20 09:38 -Correct Patient Yes Yes -Correct Side, Site, Position Yes Yes -Correct Procedure Yes Yes -Procedure Performed Yes Yes -Type of Procedure Debridement Debridement -Clinical Debridement Subcutaneous Subcutaneous -Tissue Removed Subcutaneous Subcutaneous -Post Debridement (cm) - Length 2.5 2.8 -Post Debridement (cm) - Width 2.3 2.3 -Post Debridement (cm) - Depth 0.1 0.1 -Total Square (Post) (cm) 5.75 6.44 -Area of Debridement (cm) - Length 2.5 2.8 -Area of Debridement (cm) - Width 2.3 2.3 -Total Square (Area) (cm) 5.75 6.44 -Tunneling No No -Undermining/Tunneling No No -Circular Undermining No No -Wound/Ulcer Outcome Not Healed Not Healed -Ulcer Cleansing Rinsed/ Rinsed/ Irrigated with Irrigated with Saline Saline -Foul Odor after Cleansing No No -Bioengineered Tissue Yes Yes -Type of Bioengineered Tissue Epifix Mesh Epifix Mesh -Expiration Date 12/03/25 12/04/27 -Product Lot Number [id number] -Percent Used 100 100 -Lot number of Saline Used [id number] -Bleeding Controlled with Pressure Pressure -Treatment Response Procedure Procedure Tolerated Well Tolerated Well -Offloading No No -Debridement - Subq, 1st 20sq cm No No -Apply Skin Sub - 1st 25 sq cm - Legs 1 1 -Epifix Mesh (per sq cm) 11 11 Pain Scale: 0-10 Numeric Is Patient Pain Free? Yes Yes - Nurse 3 - General Ulcer D/C NN Start: 02/08/23 11:06 Freq: Status: Active Protocol: Activity Type Activity Date Activity User E-sign Co-sign Detail Recorded Client Recorded Date Recorded By Document 02/08/23 11:30 MW Desktop 02/08/23 11:31 MW Document 02/15/23 09:52 RB [id number] 02/15/23 09:53 RB 02/08/23 02/15/23 11:30 09:52 Wound Care Center Nurse 3 #1- R LAT LE (P/O BASAL CELL CA) -Ulcer Cleansing Not Cleansed -Other Dressing ABD ABD pad secured with partial cut colton wrap as directed per Ayanna Hunt -Other Covering COLTON wrap Right -Lotion applied to leg before No compression wrap -Compression Wrap Colton Wrap Treatment Response Procedure Procedure Tolerated Well Tolerated Well Pain Scale: 0-10 Numeric Is Patient Pain Free? Yes Yes Teaching: Wound Center Dressing Your Wound -Person Taught Patient -Teaching Method Discussion -Response to teaching Verbalize understanding WC - Visit Discharge Discharge Condition Stable Stable Ambulatory Status Ambulatory,Cane Ambulatory,Cane Transportation Private Auto Private Auto Accompanied by self Medication Reconcilliation completed & No No provided to patient/care provider Clinical Summary of Care Provided Yes Yes Assessment/Plan Assessment/Plan (1) Ulcer of right leg: CODE(S): L97.919 - Non-pressure chronic ulcer of unspecified part of right lower leg with unspecified severity PLAN: EpiFix #2 applied to the leg with wound veil and Steri-Strips then a dry gauze dressing and Zehra. single-layer Tubigrip to the bilateral lower legs Follow-up in 1 week (2) Varicose veins of both lower extremities: CODE(S): I83.93 - Asymptomatic varicose veins of bilateral lower extremities (3) Edema of both lower extremities: CODE(S): R60.0 - Localized edema (4) Non-pressure ulcer of right lower extremity: CODE(S): L97.919 - Non-pressure chronic ulcer of unspecified part of right lower leg with unspecified severity
[2023-02-22 09:56] VITALS: BP 100/64; PULSE 64; RESP 18; TEMP 36.1; BMI 23.5
--- NOTE | 2023-02-22 11:25 | PN.PCM_ITS ---
History of Present Illness Date of Service: 02/22/23 Chief Complaint: Follow-up on her right lower leg lateral area wound nonhealing since at least November. History of Wound: 72-year-old white female in [place] where she is living during the winter. She had a growth removed from her right lateral lower leg. She is still not sure if it is cancer or not. Was removed only by her regular doctor not a Derm doctor. Still open to the subcutaneous skin. She saw her own doctor up here and she was referred to us from her and put on cephalexin. Recently she was taken off her Lasix and has terrible edema of her lower extremities and abdomen. Patient states she has gained 9 pounds Progress of Wound: All her measurements are smaller in depth will continue the EpiFix today with #3. Tolerated debridement better this week . New area on her right forearm from her daughter's dog scratched her. She has a avulsion laceration to the right forearm. Surrounding tissue is red swollen we obtained wound cultures Subjective Subjective Patient complains of burning arm pain and soreness been using [id number] antibiotic ointment on it and wrapping Objective Data Objective Data The EpiFix on the right lower leg is much smaller more superficial actually she has beads of new skin coming through which looks good Right forearm we will start with Aquacel extra moistened with a wrap over top. Debrided the skin that never took for the avulsion laceration. Vital Signs: Vital Signs Temp Pulse Resp BP O2 Del Method 97 F L 64 18 100/64 Room Air 02/22/23 09:56 02/22/23 09:56 02/22/23 09:56 02/22/23 09:56 02/08/23 11:07 Oxygen Delivery Method Room Air Weight: 137 lb Body Mass Index (BMI) 23.5 Physical Exam Const oriented x3 General Appearance: cooperative Exam Limitations: no limitations HEENT normocephalic Head and Scalp: normal to inspection Face and Sinus: normal facial exam Nose: external nose normal External Ear: external ears normal Eyes PERRL General Eye: normal appearance of both eyes Neck full ROM General: normal visual inspection Resp normal respiratory effort Effort and Inspection: able to speak in complete sentences Auscultation: clear to auscultation bilaterally Cardio regular rate and regular rhythm Palpation: normal PMI Rate: regular rate Rhythm: regular rhythm GI Auscultation: normoactive bowel sounds Palpation: soft and no hepatosplenomegaly Extremity Extremity Narrative: Edema from at least knees down to even toes like little sausages. Discoloration of her lower legs from probably peripheral vascular disease. She does have obvious varicosities. General Extremity: normal exam except as noted Skin General Skin Exam: erythema and venous stasis Wounds: wounds noted Wound Narrative: Rather large size of a $0.50 piece full-thickness open wound on the right lateral leg. We will try to get studies from the other doctor. Neuro oriented x3 Psych Appearance: grossly normal Speech: normal speech Thought Content: normal thought content Judgement: judgement good Debridement Note Debridement Note Wound debrided: Right lateral lower leg traumatic wound Type of Debridement: Excisional debridement Anesthesia Used: 5% Lidocaine Gel Depth: Down to and including healthy tissue Percentage of wound debrided: 100 Instrument Used: 5mm curette Tissue Removed: Fibrin Severity: Limited To Skin Breakdown Amount of bleeding with debridement: Mild Bleeding Controlled with: Compression and gauze Patient tolerated procedure: Patient tolerated procedure well Post-Debridement Measurements and Additional Note: Post-Debridement Measurements/Treatment - Nurse 1 - General Ulcer Assessment Start: 02/08/23 11:06 Freq: Status: Active Protocol: [email or web address].[email or web address] Activity Type Activity Date Activity User E-sign Co-sign Detail Recorded Client Recorded Date Recorded By Document 02/08/23 11:07 [facility] [id number] 02/08/23 11:13 [facility] Document 02/15/23 09:30 [id number] 02/15/23 09:34 Document 02/22/23 09:56 [id number] 02/22/23 09:59 RB 02/08/23 02/15/23 02/22/23 11:07 09:30 09:56 - Today's Visit Information Type of service Follow-up Visit Follow-up Visit Follow-up Visit (Physician/TECHNICAL ADMINISTRATIVE ASSISTANT (Physician/TECHNICAL ADMINISTRATIVE ASSISTANT (Physician/TECHNICAL ADMINISTRATIVE ASSISTANT ) ) ) Arrival Mode Ambulatory Ambulatory Ambulatory Transfer Assistance None None None Patient Identification Verified (Name & Yes Yes Yes ) Patient Requires Transmission-Based No No No Precautions Height and Weight Body Mass Index (BMI) 23.5 23.5 23.5 BMI Classification Normal Normal Normal Vital Signs Temperature (97.8 F-99.1 F) 97.9 F 97.4 F L 97 F L Temperature Source Temporal Temporal Temporal Pulse Rate (60-100) 66 68 64 Pulse Location Monitor Monitor Monitor Respiratory Rate (12-18) 16 18 18 Respiratory rate source Observation Observation Observation Oxygen Delivery Method Room Air Blood Pressure (90/60-120/80) 119/49 L 135/52 H 100/64 Blood Pressure Mean (mm Hg) 72 79 76 Source Monitor Monitor Monitor Position Sitting Semi-Fowlers Semi-Fowlers Blood Pressure Location Left Arm Left Arm Left Arm History Since Last Visit- (Skip if this is Patient's initial visit) Have you changed medications since your No No No last visit? Any new allergies or adverse reactions No No No Had a fall/change in ADL's that may No No No increase risk of falls Signs or symptoms of abuse and/or No No No neglect since last visit Have you been in the hospital since your No No No last visit? Has dressing in place as prescribed Yes Yes Yes Has compression in place as prescribed N/A Yes No Has offloadiing in place as prescribed N/A No No Experienced any changes in pain level or No No No management Left Footwear Regular Shoe Right Footwear Regular Shoe Other Footwear just wearing an colton to secure Pain Scale: 0-10 Numeric Is Patient Pain Free? Yes Yes Yes WC - Nurse 1 - General Ulcer Measurement Start: 02/08/23 11:06 Freq: Status: Active Protocol: Activity Type Activity Date Activity User E-sign Co-sign Detail Recorded Client Recorded Date Recorded By Document 02/08/23 11:07 [facility] [id number] 02/08/23 11:13 [facility] Document 02/15/23 09:30 RB [id number] 02/15/23 09:34 RB Document 02/22/23 09:56 RB [id number] 02/22/23 09:59 RB 02/08/23 02/15/23 02/22/23 11:07 09:30 09:56 Wound Center Nurse 1 2. R forearm -Combined with other wound No -Current Size (cm) - Length 3.5 -Current Size (cm) - Width 4.2 -Current Size (cm) - Depth 0.1 -Total Square Cm 14.70 -Photo Taken Yes -Tunneling No -Undermining/Tunneling No -Circular Undermining No -Exudate Amt Medium -Exudate Type Serosanguineous -Wound Margin Distinct, Outline Attached -Granulation Amt Medium (34-66%) -Granulation Quality Leonore -Slough/Fibrin Yes -Necrosis Amt Medium (34-66%) -Necrotic Tissue Type Adherent Slough -Structure Exposed N/A -Texture (Elif-wound Skin Appearance) Assessed -Moisture (Elif-wound Skin Appearance) Assessed -Color (Elif-wound Skin Appearance) Assessed -Temperature (Elif-wound Skin No Abnormality Appearance) (Pt Warm) -Tenderness on Palpation (Elif-wound No Skin Appearance) -Ulcer Cleansing Wound Cleanser -Foul Odor after Cleansing No -Anesthetic Used 5% Lidocaine Gel #1- R LAT LE (P/O BASAL CELL CA) -Combined with other wound No No No -Current Size (cm) - Length 2.8 3.1 2.9 -Current Size (cm) - Width 2.4 2.6 2.3 -Current Size (cm) - Depth 0.1 0.1 0.1 -Total Square Cm 6.72 8.06 6.67 -Date of Last Picture (Recall this 02/08/23 field) -Photo Taken Yes Yes -Epithelialization Small 1-33% -Tunneling No No No -Undermining/Tunneling No No No -Circular Undermining No No No -Exudate Amt Medium Medium Medium -Exudate Type Serosanguineous Serosanguineous Serosanguineous -Wound Margin Distinct, Distinct, Distinct, Outline Outline Outline Attached Attached Attached -Granulation Amt Small (1-33%) Medium (34-66%) Medium (34-66%) -Granulation Quality Red Leonore Leonore -Slough/Fibrin Yes Yes Yes -Necrosis Amt Large (67-100%) Medium (34-66%) Medium (34-66%) -Necrotic Tissue Type Adherent Slough Adherent Slough Adherent Slough -Structure Exposed N/A N/A -Texture (Elif-wound Skin Appearance) Assessed, Assessed Assessed Scarring -Moisture (Elif-wound Skin Appearance) Assessed,Dry/ Assessed Assessed Scaly -Color (Elif-wound Skin Appearance) Assessed Assessed Assessed -Temperature (Elif-wound Skin No Abnormality No Abnormality No Abnormality Appearance) (Pt Warm) (Pt Warm) (Pt Warm) -Tenderness on Palpation (Elif-wound No No No Skin Appearance) -Ulcer Cleansing Rinsed/ Wound Cleanser Wound Cleanser Irrigated with Saline -Foul Odor after Cleansing No No -Anesthetic Used 5% Lidocaine 5% Lidocaine 5% Lidocaine Gel Gel Gel Lower Limb Edema Present Yes Right Calf (cm) 34 Right Ankle (cm) 23.6 WC - Nurse 2 - General Ulcer CM Notes Start: 02/08/23 11:06 Freq: Status: Active Protocol: Activity Type Activity Date Activity User E-sign Co-sign Detail Recorded Client Recorded Date Recorded By Document 02/08/23 11:20 MW Desktop 02/08/23 11:30 MW Document 02/15/23 09:37 MW [id number] 02/15/23 09:45 MW Document 02/22/23 10:12 MW [id number] 02/22/23 10:24 MW 02/08/23 02/15/23 02/22/23 11:20 09:37 10:12 Wound Center Nurse 2 2. R forearm -Time 10:12 -Correct Patient Yes -Correct Side, Site, Position Yes -Correct Procedure Yes -Procedure Performed Yes -Type of Procedure Debridement -Clinical Debridement Subcutaneous -Tissue Removed Subcutaneous -Post Debridement (cm) - Length 3.5 -Post Debridement (cm) - Width 4.6 -Post Debridement (cm) - Depth 0.1 -Total Square (Post) (cm) 16.10 -Area of Debridement (cm) - Length 3.5 -Area of Debridement (cm) - Width 4.6 -Total Square (Area) (cm) 16.10 -Tunneling No -Undermining/Tunneling No -Circular Undermining No -Wound/Ulcer Outcome Not Healed -Ulcer Cleansing Rinsed/ Irrigated with Saline -Foul Odor after Cleansing No -Bioengineered Tissue No -Bleeding Controlled with Pressure -Treatment Response Procedure Tolerated Well -Offloading No -Debridement - Subq, 1st 20sq cm Yes #1- R LAT LE (P/O BASAL CELL CA) -Time 11:20 09:38 10:14 -Correct Patient Yes Yes Yes -Correct Side, Site, Position Yes Yes Yes -Correct Procedure Yes Yes Yes -Procedure Performed Yes Yes Yes -Type of Procedure Debridement Debridement Debridement -Clinical Debridement Subcutaneous Subcutaneous Subcutaneous -Tissue Removed Subcutaneous Subcutaneous Subcutaneous -Post Debridement (cm) - Length 2.5 2.8 2.5 -Post Debridement (cm) - Width 2.3 2.3 1.9 -Post Debridement (cm) - Depth 0.1 0.1 0.1 -Total Square (Post) (cm) 5.75 6.44 4.75 -Area of Debridement (cm) - Length 2.5 2.8 2.5 -Area of Debridement (cm) - Width 2.3 2.3 1.9 -Total Square (Area) (cm) 5.75 6.44 4.75 -Tunneling No No No -Undermining/Tunneling No No No -Circular Undermining No No No -Wound/Ulcer Outcome Not Healed Not Healed Not Healed -Ulcer Cleansing Rinsed/ Rinsed/ Rinsed/ Irrigated with Irrigated with Irrigated with Saline Saline Saline -Foul Odor after Cleansing No No No -Bioengineered Tissue Yes Yes Yes -Type of Bioengineered Tissue Epifix Mesh Epifix Mesh Epifix Mesh -Expiration Date 12/03/25 12/04/27 12/04/27 -Product Lot Number [id number] -Percent Used 100 100 100 -Lot number of Saline Used [id number] -Bleeding Controlled with Pressure Pressure Pressure -Treatment Response Procedure Procedure Procedure Tolerated Well Tolerated Well Tolerated Well -Offloading No No No -Debridement - Subq, 1st 20sq cm No No No -Apply Skin Sub - 1st 25 sq cm - Legs 1 1 1 -Epifix Mesh (per sq cm) 11 11 11 Pain Scale: 0-10 Numeric Is Patient Pain Free? Yes Yes Yes WC - Nurse 3 - General Ulcer D/C NN Start: 02/08/23 11:06 Freq: Status: Active Protocol: Activity Type Activity Date Activity User E-sign Co-sign Detail Recorded Client Recorded Date Recorded By Document 02/08/23 11:30 MW Desktop 02/08/23 11:31 MW Document 02/15/23 09:52 RB [id number] 02/15/23 09:53 RB Document 02/22/23 10:39 MW [id number] 02/22/23 10:40 MW 02/08/23 02/15/23 02/22/23 11:30 09:52 10:39 Wound Care Center Nurse 3 2. R forearm -Ulcer Cleansing Rinsed/ Irrigated with Saline -Foul Odor after Cleansing No -Negative Pressure Wound Therapy N/A -Primary Dressing Applied Aquacel Extra, NonAdherent Contact Layer -Other Covering abd -Aquacel Extra 2 #1- R LAT LE (P/O BASAL CELL CA) -Ulcer Cleansing Not Cleansed Not Cleansed -Foul Odor after Cleansing No -Negative Pressure Wound Therapy N/A -Other Dressing ABD ABD pad secured with partial cut colton wrap as directed per Ayanna Hunt -Other Covering COLTON wrap ABD Right -Lotion applied to leg before No No compression wrap -Compression Wrap Colton Wrap Colton Wrap Treatment Response Procedure Procedure Procedure Tolerated Well Tolerated Well Tolerated Well Pain Scale: 0-10 Numeric Is Patient Pain Free? Yes Yes Yes Teaching: Wound Center Dressing Your Wound -Person Taught Patient Patient -Teaching Method Discussion Discussion, Demonstration -Response to teaching Verbalize Verbalize understanding understanding WC - Visit Discharge Discharge Condition Stable Stable Stable Ambulatory Status Ambulatory,Cane Ambulatory,Cane Ambulatory Transportation Private Auto Private Auto Private Auto Accompanied by self self Medication Reconcilliation completed & No No No provided to patient/care provider Clinical Summary of Care Provided Yes Yes Yes Additional Wound Wound debrided: Right forearm avulsion laceration Type of Debridement: Excisional debridement Anesthesia Used: 5% Lidocaine Gel Depth: Down to and including healthy tissue Percentage of wound debrided: 100 Instrument Used: 7mm curette Tissue Removed: Fibrin and devitalized tissue Severity: Limited To Skin Breakdown Amount of bleeding with debridement: Mild Bleeding Controlled with: Compression and gauze Patient tolerated procedure: Patient tolerated procedure well Assessment/Plan Assessment/Plan (1) Nonhealing nonsurgical wound: CODE(S): T14.8XXA - Other injury of unspecified body region, initial encounter PLAN: Wash area with antibacterial soap and apply the Aquacel extra and gauze wrap every day We will call with culture results for the infection (2) Cellulitis: CODE(S): L03.90 - Cellulitis, unspecified (3) Ulcer of right leg: CODE(S): L97.919 - Non-pressure chronic ulcer of unspecified part of right lower leg with unspecified severity PLAN: EpiFix #3 applied to the leg with wound veil and Steri-Strips then a dry gauze dressing and Zehra. single-layer Tubigrip to the bilateral lower legs Follow-up in 1 week (4) Varicose veins of both lower extremities: CODE(S): I83.93 - Asymptomatic varicose veins of bilateral lower extremities (5) Edema of both lower extremities: CODE(S): R60.0 - Localized edema (6) Non-pressure ulcer of right lower extremity: CODE(S): L97.919 - Non-pressure chronic ulcer of unspecified part of right lower leg with unspecified severity
[2023-03-01 09:39] VITALS: BP 109/65; PULSE 65; RESP 16; TEMP 36.1; BMI 23.5
--- NOTE | 2023-03-01 11:24 | PCM.WC.PN ---
History of Present Illness Date of Service: 03/01/23 Chief Complaint: Follow-up on her right lower leg lateral area wound nonhealing since at least November. History of Wound: 72-year-old white female in [place] where she is living during the winter. She had a growth removed from her right lateral lower leg. She is still not sure if it is cancer or not. Was removed only by her regular doctor not a Derm doctor. Still open to the subcutaneous skin. She saw her own doctor up here and she was referred to us from her and put on cephalexin. Recently she was taken off her Lasix and has terrible edema of her lower extremities and abdomen. Patient states she has gained 9 pounds Progress of Wound: All her measurements are smaller in depth will continue the EpiFix today with #4. Tolerated debridement better this week edges are flat and well approximated. New area on her right forearm from her daughter's dog scratched her. She has a avulsion laceration to the right forearm. Growing staph patient will start antibiotic starting today. Measuring smaller using the Aquacel but she complains of a lot of pain. Subjective Subjective Patient just complains of a lot of pain in her arm but her leg does not bother her anymore also will be in for 2 weeks because going down to her cabin in [facility] for 2 weeks. Objective Data Objective Data Same as above improvements on both areas we will start the antibiotic she should see a difference. Vital Signs: Vital Signs Temp Pulse Resp BP O2 Del Method 97 F L 65 16 109/65 Room Air 03/01/23 09:39 03/01/23 09:39 03/01/23 09:39 03/01/23 09:39 03/01/23 09:39 Oxygen Delivery Method Room Air Weight: 137 lb Body Mass Index (BMI) 23.5 Lab / Micro Data Micro: Microbiology 02/23/23 10:25 Wound Abcess - Right Forearm Gram Stain - Final 02/23/23 10:25 Wound Abcess - Right Forearm Wound Culture - Final Staphylococcus epidermidis 02/23/23 10:25 Wound Abcess - Right Forearm Anaerobic Culture - Final No anaerobic bacteria isolated. Physical Exam Const oriented x3 General Appearance: cooperative Exam Limitations: no limitations HEENT normocephalic Head and Scalp: normal to inspection Face and Sinus: normal facial exam Nose: external nose normal External Ear: external ears normal Eyes PERRL General Eye: normal appearance of both eyes Neck full ROM General: normal visual inspection Resp normal respiratory effort Effort and Inspection: able to speak in complete sentences Auscultation: clear to auscultation bilaterally Cardio regular rate and regular rhythm Palpation: normal PMI Rate: regular rate Rhythm: regular rhythm GI Auscultation: normoactive bowel sounds Palpation: soft and no hepatosplenomegaly Extremity Extremity Narrative: Edema from at least knees down to even toes like little sausages. Discoloration of her lower legs from probably peripheral vascular disease. She does have obvious varicosities. General Extremity: normal exam except as noted Skin General Skin Exam: erythema and venous stasis Wounds: wounds noted Wound Narrative: Rather large size of a $0.50 piece full-thickness open wound on the right lateral leg. We will try to get studies from the other doctor. Neuro oriented x3 Psych Appearance: grossly normal Speech: normal speech Thought Content: normal thought content Judgement: judgement good Debridement Note Debridement Note Wound debrided: Right lateral lower leg traumatic wound Type of Debridement: Excisional debridement Anesthesia Used: 5% Lidocaine Gel Depth: Down to and including healthy tissue Percentage of wound debrided: 100 Instrument Used: 5mm curette Tissue Removed: Fibrin Severity: Limited To Skin Breakdown Amount of bleeding with debridement: Mild Bleeding Controlled with: Compression and gauze Patient tolerated procedure: Patient tolerated procedure well Post-Debridement Measurements and Additional Note: Post-Debridement Measurements/Treatment - Nurse 1 - General Ulcer Assessment Start: 02/08/23 11:06 Freq: Status: Active Protocol: .LOWLAURIET Activity Type Activity Date Activity User E-sign Co-sign Detail Recorded Client Recorded Date Recorded By Document 02/08/23 11:07 [facility] [id number] 02/08/23 11:13 [facility] Document 02/15/23 09:30 RB [id number] 02/15/23 09:34 RB Document 02/22/23 09:56 RB [id number] 02/22/23 09:59 RB Document 03/01/23 09:39 [facility] [id number] 03/01/23 09:52 [facility] 02/08/23 02/15/23 02/22/23 11:07 09:30 09:56 - Today's Visit Information Type of service Follow-up Visit Follow-up Visit Follow-up Visit (Physician/CYLINDER WORKER (Physician/CYLINDER WORKER (Physician/CYLINDER WORKER ) ) ) Arrival Mode Ambulatory Ambulatory Ambulatory Transfer Assistance None None None Patient Identification Verified (Name & Yes Yes Yes ) Patient Requires Transmission-Based No No No Precautions Height and Weight Body Mass Index (BMI) 23.5 23.5 23.5 BMI Classification Normal Normal Normal Vital Signs Temperature (97.8 F-99.1 F) 97.9 F 97.4 F L 97 F L Temperature Source Temporal Temporal Temporal Pulse Rate (60-100) 66 68 64 Pulse Location Monitor Monitor Monitor Respiratory Rate (12-18) 16 18 18 Respiratory rate source Observation Observation Observation Oxygen Delivery Method Room Air Blood Pressure (90/60-120/80) 119/49 L 135/52 H 100/64 Blood Pressure Mean (mm Hg) 72 79 76 Source Monitor Monitor Monitor Position Sitting Semi-Fowlers Semi-Fowlers Blood Pressure Location Left Arm Left Arm Left Arm History Since Last Visit- (Skip if this is Patient's initial visit) Have you changed medications since your No No No last visit? Any new allergies or adverse reactions No No No Had a fall/change in ADL's that may No No No increase risk of falls Signs or symptoms of abuse and/or No No No neglect since last visit Have you been in the hospital since your No No No last visit? Has dressing in place as prescribed Yes Yes Yes Has compression in place as prescribed N/A Yes No Has offloadiing in place as prescribed N/A No No Experienced any changes in pain level or No No No management Left Footwear Regular Shoe Right Footwear Regular Shoe Other Footwear just wearing an colton to secure Pain Scale: 0-10 Numeric Is Patient Pain Free? Yes Yes Yes 03/01/23 09:39 - Today's Visit Information Type of service Follow-up Visit (Physician/CYLINDER WORKER ) Arrival Mode Ambulatory,Cane Transfer Assistance None Patient Identification Verified (Name & Yes ) Patient Requires Transmission-Based No Precautions Height and Weight Body Mass Index (BMI) 23.5 BMI Classification Normal Vital Signs Temperature (97.8 F-99.1 F) 97 F L Temperature Source Temporal Pulse Rate (60-100) 65 Pulse Location Monitor Respiratory Rate (12-18) 16 Respiratory rate source Observation Oxygen Delivery Method Room Air Blood Pressure (90/60-120/80) 109/65 Blood Pressure Mean (mm Hg) 79 Source Monitor Position Sitting Blood Pressure Location Right Arm History Since Last Visit- (Skip if this is Patient's initial visit) Have you changed medications since your No last visit? Any new allergies or adverse reactions No Had a fall/change in ADL's that may No increase risk of falls Signs or symptoms of abuse and/or No neglect since last visit Have you been in the hospital since your No last visit? Has dressing in place as prescribed Yes Has compression in place as prescribed Yes Has offloadiing in place as prescribed N/A Experienced any changes in pain level or No management Left Footwear Regular Shoe Right Footwear Regular Shoe Other Footwear Pain Scale: 0-10 Numeric Is Patient Pain Free? Yes WC - Nurse 1 - General Ulcer Measurement Start: 02/08/23 11:06 Freq: Status: Active Protocol: Activity Type Activity Date Activity User E-sign Co-sign Detail Recorded Client Recorded Date Recorded By Document 02/08/23 11:07 [facility] [id number] 02/08/23 11:13 [facility] Document 02/15/23 09:30 RB [id number] 02/15/23 09:34 RB Document 02/22/23 09:56 RB [id number] 02/22/23 09:59 RB Document 03/01/23 09:39 [facility] [id number] 03/01/23 09:52 [facility] 02/08/23 02/15/23 02/22/23 11:07 09:30 09:56 Wound Center Nurse 1 2. R forearm -Combined with other wound No -Current Size (cm) - Length 3.5 -Current Size (cm) - Width 4.2 -Current Size (cm) - Depth 0.1 -Total Square Cm 14.70 -Date of Last Picture (Recall this field) -Photo Taken Yes -Epithelialization -Tunneling No -Undermining/Tunneling No -Circular Undermining No -Exudate Amt Medium -Exudate Type Serosanguineous -Wound Margin Distinct, Outline Attached -Granulation Amt Medium (34-66%) -Granulation Quality [place] -Slough/Fibrin Yes -Necrosis Amt Medium (34-66%) -Necrotic Tissue Type Adherent Slough -Structure Exposed N/A -Texture (Elif-wound Skin Appearance) Assessed -Moisture (Elif-wound Skin Appearance) Assessed -Color (Elif-wound Skin Appearance) Assessed -Temperature (Elif-wound Skin No Abnormality Appearance) (Pt Warm) -Tenderness on Palpation (Elif-wound No Skin Appearance) -Ulcer Cleansing Wound Cleanser -Foul Odor after Cleansing No -Anesthetic Used 5% Lidocaine Gel #1- R LAT LE (P/O BASAL CELL CA) -Combined with other wound No No No -Current Size (cm) - Length 2.8 3.1 2.9 -Current Size (cm) - Width 2.4 2.6 2.3 -Current Size (cm) - Depth 0.1 0.1 0.1 -Total Square Cm 6.72 8.06 6.67 -Date of Last Picture (Recall this 02/08/23 field) -Photo Taken Yes Yes -Epithelialization Small 1-33% -Tunneling No No No -Undermining/Tunneling No No No -Circular Undermining No No No -Exudate Amt Medium Medium Medium -Exudate Type Serosanguineous Serosanguineous Serosanguineous -Wound Margin Distinct, Distinct, Distinct, Outline Outline Outline Attached Attached Attached -Granulation Amt Small (1-33%) Medium (34-66%) Medium (34-66%) -Granulation Quality Red [place] -Slough/Fibrin Yes Yes Yes -Necrosis Amt Large (67-100%) Medium (34-66%) Medium (34-66%) -Necrotic Tissue Type Adherent Slough Adherent Slough Adherent Slough -Structure Exposed N/A N/A -Texture (Elif-wound Skin Appearance) Assessed, Assessed Assessed Scarring -Moisture (Elif-wound Skin Appearance) Assessed,Dry/ Assessed Assessed Scaly -Color (Elif-wound Skin Appearance) Assessed Assessed Assessed -Temperature (Elif-wound Skin No Abnormality No Abnormality No Abnormality Appearance) (Pt Warm) (Pt Warm) (Pt Warm) -Tenderness on Palpation (Elif-wound No No No Skin Appearance) -Ulcer Cleansing Rinsed/ Wound Cleanser Wound Cleanser Irrigated with Saline -Foul Odor after Cleansing No No -Anesthetic Used 5% Lidocaine 5% Lidocaine 5% Lidocaine Gel Gel Gel Lower Limb Edema Present Yes Right Calf (cm) 34 Right Ankle (cm) 23.6 03/01/23 09:39 Wound Center Nurse 1 2. R forearm -Combined with other wound No -Current Size (cm) - Length 3 -Current Size (cm) - Width 4 -Current Size (cm) - Depth 0.1 -Total Square Cm 12 -Date of Last Picture (Recall this 03/01/23 field) -Photo Taken Yes -Epithelialization None Present -Tunneling No -Undermining/Tunneling No -Circular Undermining No -Exudate Amt Medium -Exudate Type Sanguineous -Wound Margin Flat & Intact -Granulation Amt Large (67-100%) -Granulation Quality Red -Slough/Fibrin Yes -Necrosis Amt Small (1-33%) -Necrotic Tissue Type Adherent Slough -Structure Exposed -Texture (Elif-wound Skin Appearance) Assessed, Scarring -Moisture (Elif-wound Skin Appearance) Assessed -Color (Elif-wound Skin Appearance) Assessed -Temperature (Elif-wound Skin No Abnormality Appearance) (Pt Warm) -Tenderness on Palpation (Elif-wound No Skin Appearance) -Ulcer Cleansing Rinsed/ Irrigated with Saline -Foul Odor after Cleansing No -Anesthetic Used 5% Lidocaine Gel #1- R LAT LE (P/O BASAL CELL CA) -Combined with other wound No -Current Size (cm) - Length 2.6 -Current Size (cm) - Width 2.2 -Current Size (cm) - Depth 0.1 -Total Square Cm 5.72 -Date of Last Picture (Recall this 03/01/23 field) -Photo Taken Yes -Epithelialization -Tunneling No -Undermining/Tunneling No -Circular Undermining No -Exudate Amt Medium -Exudate Type Serosanguineous -Wound Margin Distinct, Outline Attached -Granulation Amt Small (1-33%) -Granulation Quality Red -Slough/Fibrin Yes -Necrosis Amt Large (67-100%) -Necrotic Tissue Type Adherent Slough -Structure Exposed -Texture (Elif-wound Skin Appearance) Assessed, Scarring -Moisture (Elif-wound Skin Appearance) Assessed -Color (Elif-wound Skin Appearance) Assessed, Hemosiderin Staining -Temperature (Elif-wound Skin No Abnormality Appearance) (Pt Warm) -Tenderness on Palpation (Elif-wound No Skin Appearance) -Ulcer Cleansing Soap and Water -Foul Odor after Cleansing No -Anesthetic Used 4% Lidocaine Solution Lower Limb Edema Present Yes Right Calf (cm) 35 Right Ankle (cm) 23.1 WC - Nurse 2 - General Ulcer CM Notes Start: 02/08/23 11:06 Freq: Status: Active Protocol: Activity Type Activity Date Activity User E-sign Co-sign Detail Recorded Client Recorded Date Recorded By Document 02/08/23 11:20 MW Desktop 02/08/23 11:30 MW Document 02/15/23 09:37 MW [id number] 02/15/23 09:45 MW Document 02/22/23 10:12 MW [id number] 02/22/23 10:24 MW 02/08/23 02/15/23 02/22/23 11:20 09:37 10:12 Wound Center Nurse 2 2. R forearm -Time 10:12 -Correct Patient Yes -Correct Side, Site, Position Yes -Correct Procedure Yes -Procedure Performed Yes -Type of Procedure Debridement -Clinical Debridement Subcutaneous -Tissue Removed Subcutaneous -Post Debridement (cm) - Length 3.5 -Post Debridement (cm) - Width 4.6 -Post Debridement (cm) - Depth 0.1 -Total Square (Post) (cm) 16.10 -Area of Debridement (cm) - Length 3.5 -Area of Debridement (cm) - Width 4.6 -Total Square (Area) (cm) 16.10 -Tunneling No -Undermining/Tunneling No -Circular Undermining No -Wound/Ulcer Outcome Not Healed -Ulcer Cleansing Rinsed/ Irrigated with Saline -Foul Odor after Cleansing No -Bioengineered Tissue No -Bleeding Controlled with Pressure -Treatment Response Procedure Tolerated Well -Offloading No -Debridement - Subq, 1st 20sq cm Yes #1- R LAT LE (P/O BASAL CELL CA) -Time 11:20 09:38 10:14 -Correct Patient Yes Yes Yes -Correct Side, Site, Position Yes Yes Yes -Correct Procedure Yes Yes Yes -Procedure Performed Yes Yes Yes -Type of Procedure Debridement Debridement Debridement -Clinical Debridement Subcutaneous Subcutaneous Subcutaneous -Tissue Removed Subcutaneous Subcutaneous Subcutaneous -Post Debridement (cm) - Length 2.5 2.8 2.5 -Post Debridement (cm) - Width 2.3 2.3 1.9 -Post Debridement (cm) - Depth 0.1 0.1 0.1 -Total Square (Post) (cm) 5.75 6.44 4.75 -Area of Debridement (cm) - Length 2.5 2.8 2.5 -Area of Debridement (cm) - Width 2.3 2.3 1.9 -Total Square (Area) (cm) 5.75 6.44 4.75 -Tunneling No No No -Undermining/Tunneling No No No -Circular Undermining No No No -Wound/Ulcer Outcome Not Healed Not Healed Not Healed -Ulcer Cleansing Rinsed/ Rinsed/ Rinsed/ Irrigated with Irrigated with Irrigated with Saline Saline Saline -Foul Odor after Cleansing No No No -Bioengineered Tissue Yes Yes Yes -Type of Bioengineered Tissue Epifix Mesh Epifix Mesh Epifix Mesh -Expiration Date 12/03/25 12/04/27 12/04/27 -Product Lot Number [id number] -Percent Used 100 100 100 -Lot number of Saline Used [id number] -Bleeding Controlled with Pressure Pressure Pressure -Treatment Response Procedure Procedure Procedure Tolerated Well Tolerated Well Tolerated Well -Offloading No No No -Debridement - Subq, 1st 20sq cm No No No -Apply Skin Sub - 1st 25 sq cm - Legs 1 1 1 -Epifix Mesh (per sq cm) 11 11 11 Pain Scale: 0-10 Numeric Is Patient Pain Free? Yes Yes Yes WC - Nurse 3 - General Ulcer D/C NN Start: 02/08/23 11:06 Freq: Status: Active Protocol: Activity Type Activity Date Activity User E-sign Co-sign Detail Recorded Client Recorded Date Recorded By Document 02/08/23 11:30 MW Desktop 02/08/23 11:31 MW Document 02/15/23 09:52 RB [id number] 02/15/23 09:53 RB Document 02/22/23 10:39 MW [id number] 02/22/23 10:40 MW 02/08/23 02/15/23 02/22/23 11:30 09:52 10:39 Wound Care Center Nurse 3 2. R forearm -Ulcer Cleansing Rinsed/ Irrigated with Saline -Foul Odor after Cleansing No -Negative Pressure Wound Therapy N/A -Primary Dressing Applied Aquacel Extra, NonAdherent Contact Layer -Other Covering abd -Aquacel Extra 2 #1- R LAT LE (P/O BASAL CELL CA) -Ulcer Cleansing Not Cleansed Not Cleansed -Foul Odor after Cleansing No -Negative Pressure Wound Therapy N/A -Other Dressing ABD ABD pad secured with partial cut colton wrap as directed per Ayanna Hunt -Other Covering COLTON wrap ABD Right -Lotion applied to leg before No No compression wrap -Compression Wrap Colton Wrap Colton Wrap Treatment Response Procedure Procedure Procedure Tolerated Well Tolerated Well Tolerated Well Pain Scale: 0-10 Numeric Is Patient Pain Free? Yes Yes Yes Teaching: Wound Center Dressing Your Wound -Person Taught Patient Patient -Teaching Method Discussion Discussion, Demonstration -Response to teaching Verbalize Verbalize understanding understanding WC - Visit Discharge Discharge Condition Stable Stable Stable Ambulatory Status Ambulatory,Cane Ambulatory,Cane Ambulatory Transportation Private Auto Private Auto Private Auto Accompanied by self self Medication Reconcilliation completed & No No No provided to patient/care provider Clinical Summary of Care Provided Yes Yes Yes Additional Wound Wound debrided: Right forearm avulsion laceration from dog scratch nonhealing nonpressure w Type of Debridement: Excisional debridement Anesthesia Used: 5% Lidocaine Gel Depth: Down to and including healthy tissue and in the subcutaneous layer Percentage of wound debrided: 100 Instrument Used: 5mm curette Tissue Removed: Fibrin Amount of bleeding with debridement: Mild Bleeding Controlled with: Compression and gauze Patient tolerated procedure: Patient tolerated procedure well Assessment/Plan Assessment/Plan (1) Nonhealing nonsurgical wound: CODE(S): T14.8XXA - Other injury of unspecified body region, initial encounter PLAN: Wash area with antibacterial soap and apply the Aquacel extra and gauze wrap every day Take doxycycline twice daily for 14 days (2) Cellulitis: CODE(S): L03.90 - Cellulitis, unspecified QUALIFIERS: Site of cellulitis: extremity Site of cellulitis of extremity: upper extremity Laterality: right Qualified Code(s): L03.113 - Cellulitis of right upper limb (3) Ulcer of right leg: CODE(S): L97.919 - Non-pressure chronic ulcer of unspecified part of right lower leg with unspecified severity QUALIFIERS: Non-pressure ulcer stage: with fat layer exposed Qualified Code(s): L97.912 - Non-pressure chronic ulcer of unspecified part of right lower leg with fat layer exposed PLAN: EpiFix #4 applied to the leg with wound veil and Steri-Strips then a dry gauze dressing and Zehra. single-layer Tubigrip to the bilateral lower legs Follow-up in 2 week (4) Varicose veins of both lower extremities: CODE(S): I83.93 - Asymptomatic varicose veins of bilateral lower extremities QUALIFIERS: Varicose vein complication: asymptomatic Qualified Code(s): I83.93 - Asymptomatic varicose veins of bilateral lower extremities (5) Edema of both lower extremities: CODE(S): R60.0 - Localized edema (6) Non-pressure ulcer of right lower extremity: CODE(S): L97.919 - Non-pressure chronic ulcer of unspecified part of right lower leg with unspecified severity QUALIFIERS: Non-pressure ulcer stage: with fat layer exposed Qualified Code(s): L97.912 - Non-pressure chronic ulcer of unspecified part of right lower leg with fat layer exposed
== END 2023-03-03 23:59 | disposition home or self-care (01) ==
LOC: WC 09:30
PROVIDERS: PCP Internal Medicine; Referring Provider Internal Medicine; Visit Provider Nurse Practitioner
DX: I83.018 Varicose veins of right lower extremity with ulcer other part of lower leg (principal); L97.811 Non-pressure chronic ulcer of other part of right lower leg limited to breakdown of skin; S51.811A Laceration without foreign body of right forearm, initial encounter; R60.0 Localized edema; W54.1XXA Struck by dog, initial encounter; I83.92 Asymptomatic varicose veins of left lower extremity; T14.8XXA Other injury of unspecified body region, initial encounter; L03.113 Cellulitis of right upper limb
CPT/HCPCS: 11042; 15271; 87070; 87075; 87186; 87205; Q4186

== ENCOUNTER 2023-03-29 10:45 | Outpatient (RCR) | payer MEDICARE, OTHER, SELFPAY ==
[2023-03-04 01:35] VITALS: BP 109/65; PULSE 65; RESP 16; TEMP 36.1; BMI 23.5
[2023-03-15 09:26] VITALS: BP 123/52; PULSE 59; RESP 20; TEMP 36.3; BMI 23.5
--- NOTE | 2023-03-15 12:25 | PN.PCM_ITS ---
History of Present Illness Date of Service: 03/15/23 Chief Complaint: Follow-up on her right lower leg lateral area wound nonhealing since at least November. History of Wound: 72-year-old white female in [place] where she is living during the winter. She had a growth removed from her right lateral lower leg. She is still not sure if it is cancer or not. Was removed only by her regular doctor not a Derm doctor. Still open to the subcutaneous skin. She saw her own doctor up here and she was referred to us from her and put on cephalexin. Recently she was taken off her Lasix and has terrible edema of her lower extremities and abdomen. Patient states she has gained 9 pounds Progress of Wound: The right forearm partial of skin avulsion laceration from the dog scratch is healed. Right lateral lower leg is looking very good she is had her third EpiFix on it and have not seen her for 2 weeks and looks very good superficial. We will apply number for EpiFix she should be healed in the next week or 2 doing very well skin surrounding looks like it is healing it is all flat with no sign of infection. Subjective Subjective Patient happy with outcomes Objective Data Objective Data Again no sign of infection we will continue with EpiFix #4 applied today with wound veil and dry dressing over top she needs to continue compression stockings and not Colton wrap the area as she is seeing a lot of more edema because she is getting like a tourniquet effect. Vital Signs: Vital Signs Temp Pulse Resp BP 97.4 F L 59 L 20 H 123/52 H 03/15/23 09:26 03/15/23 09:26 03/15/23 09:26 03/15/23 09:26 Weight: 137 lb Body Mass Index (BMI) 23.5 Physical Exam Const oriented x3 General Appearance: cooperative Exam Limitations: no limitations HEENT normocephalic Head and Scalp: normal to inspection Face and Sinus: normal facial exam Nose: external nose normal External Ear: external ears normal Eyes PERRL General Eye: normal appearance of both eyes Neck full ROM General: normal visual inspection Resp normal respiratory effort Effort and Inspection: able to speak in complete sentences Auscultation: clear to auscultation bilaterally Cardio regular rate and regular rhythm Palpation: normal PMI Rate: regular rate Rhythm: regular rhythm GI Auscultation: normoactive bowel sounds Palpation: soft and no hepatosplenomegaly Extremity Extremity Narrative: Edema from at least knees down to even toes like little sausages. Discoloration of her lower legs from probably peripheral vascular disease. She does have obvious varicosities. General Extremity: normal exam except as noted Skin General Skin Exam: erythema and venous stasis Wounds: wounds noted Wound Narrative: Rather large size of a $0.50 piece full-thickness open wound on the right lateral leg. We will try to get studies from the other doctor. Neuro oriented x3 Psych Appearance: grossly normal Speech: normal speech Thought Content: normal thought content Judgement: judgement good Debridement Note Debridement Note Wound debrided: Right lateral lower leg nonhealing surgical wound wound from cancer removal Type of Debridement: Excisional debridement Anesthesia Used: 5% Lidocaine Gel Depth: Down to and including healthy tissue and in the subcutaneous layer Percentage of wound debrided: 100 Instrument Used: 5mm curette Tissue Removed: Devitalized tissue Severity: Limited To Skin Breakdown Amount of bleeding with debridement: Mild Bleeding Controlled with: Compression and gauze Patient tolerated procedure: Patient tolerated procedure well Post-Debridement Measurements and Additional Note: Post-Debridement Measurements/Treatment - Nurse 1 - General Ulcer Assessment Start: 03/15/23 09:23 Freq: Status: Active Protocol: HERMILA.RAFFI Activity Type Activity Date Activity User E-sign Co-sign Detail Recorded Client Recorded Date Recorded By Document 03/15/23 09:26 DL [id number] 03/15/23 09:37 DL 03/15/23 09:26 - Today's Visit Information Type of service Follow-up Visit (Physician/FUR BLENDER ) Arrival Mode Ambulatory,Cane Transfer Assistance None Patient Identification Verified (Name & Yes ) Patient Requires Transmission-Based No Precautions Height and Weight Body Mass Index (BMI) 23.5 BMI Classification Normal Vital Signs Temperature (97.8 F-99.1 F) 97.4 F L Temperature Source Temporal Pulse Rate (60-100) 59 L Respiratory Rate (12-18) 20 H Respiratory rate source Observation Blood Pressure (90/60-120/80) 123/52 H Blood Pressure Mean (mm Hg) 75 Source Monitor History Since Last Visit- (Skip if this is Patient's initial visit) Have you changed medications since your No last visit? Any new allergies or adverse reactions No Had a fall/change in ADL's that may No increase risk of falls Signs or symptoms of abuse and/or No neglect since last visit Have you been in the hospital since your No last visit? Has dressing in place as prescribed Yes Has compression in place as prescribed Yes Has offloadiing in place as prescribed No Experienced any changes in pain level or No management Pain Scale: 0-10 Numeric Is Patient Pain Free? Yes WC - Nurse 1 - General Ulcer Measurement Start: 03/15/23 09:23 Freq: Status: Active Protocol: Activity Type Activity Date Activity User E-sign Co-sign Detail Recorded Client Recorded Date Recorded By Document 03/15/23 09:26 DL [id number] 03/15/23 09:37 DL 03/15/23 09:26 Wound Center Nurse 1 2. R forearm -Current Size (cm) - Length 0 -Current Size (cm) - Width 0 -Current Size (cm) - Depth 0 -Total Square Cm 0 -Photo Taken Yes -Exudate Amt None Present -Wound Margin Indistinct, Non -Visible -Granulation Amt Large (67-100%) -Granulation Quality [place] -Necrosis Amt None Present (0 %) -Structure Exposed N/A -Texture (Elif-wound Skin Appearance) Scarring -Moisture (Elif-wound Skin Appearance) No Abnormality -Color (Elif-wound Skin Appearance) No Abnormality -Temperature (Elif-wound Skin No Abnormality Appearance) (Pt Warm) -Foul Odor after Cleansing No #1- R LAT LE (P/O BASAL CELL CA) -Current Size (cm) - Length 2.5 -Current Size (cm) - Width 1.8 -Current Size (cm) - Depth 0.1 -Total Square Cm 4.50 -Photo Taken Yes -Exudate Amt Medium -Exudate Type Serosanguineous -Wound Margin Distinct, Outline Attached -Granulation Amt Medium (34-66%) -Granulation Quality Red -Necrosis Amt Medium (34-66%) -Necrotic Tissue Type Adherent Slough -Structure Exposed N/A -Texture (Elif-wound Skin Appearance) Scarring -Moisture (Elif-wound Skin Appearance) No Abnormality -Color (Elif-wound Skin Appearance) Hemosiderin Staining -Tenderness on Palpation (Elif-wound No Skin Appearance) -Ulcer Cleansing Soap and Water -Foul Odor after Cleansing No -Anesthetic Used 5% Lidocaine Gel Right Calf (cm) 31.8 Right Ankle (cm) 22.6 WC - Nurse 2 - General Ulcer CM Notes Start: 03/15/23 09:23 Freq: Status: Active Protocol: Activity Type Activity Date Activity User E-sign Co-sign Detail Recorded Client Recorded Date Recorded By Document 03/15/23 09:55 MW [id number] 03/15/23 10:02 MW 03/15/23 09:55 Wound Center Nurse 2 2. R forearm -Time 09:59 -Correct Patient Yes -Correct Side, Site, Position Yes -Correct Procedure Yes -Procedure Performed No -Post Debridement (cm) - Length 0 -Post Debridement (cm) - Width 0 -Post Debridement (cm) - Depth 0 -Total Square (Post) (cm) 0 -Wound/Ulcer Outcome Healed- Epithelialized #1- R LAT LE (P/O BASAL CELL CA) -Time 09:59 -Correct Patient Yes -Correct Side, Site, Position Yes -Correct Procedure Yes -Procedure Performed Yes -Type of Procedure Debridement -Clinical Debridement Subcutaneous -Tissue Removed Subcutaneous -Post Debridement (cm) - Length 2.5 -Post Debridement (cm) - Width 2.0 -Post Debridement (cm) - Depth 0.1 -Total Square (Post) (cm) 5.00 -Area of Debridement (cm) - Length 2.5 -Area of Debridement (cm) - Width 2.0 -Total Square (Area) (cm) 5.00 -Tunneling No -Undermining/Tunneling No -Circular Undermining No -Wound/Ulcer Outcome Not Healed -Ulcer Cleansing Rinsed/ Irrigated with Saline -Foul Odor after Cleansing No -Bioengineered Tissue Yes -Type of Bioengineered Tissue Epifix Mesh -Expiration Date 12/04/27 -Product Lot Number [id number] -Percent Used 100 -Lot number of Saline Used [id number] -Bleeding Controlled with Pressure -Treatment Response Procedure Tolerated Well -Offloading No -Debridement - Subq, 1st 20sq cm No -Apply Skin Sub - 1st 25 sq cm - Legs 1 -Epifix Mesh (per sq cm) 11 Pain Scale: 0-10 Numeric Is Patient Pain Free? Yes WC - Nurse 3 - General Ulcer D/C NN Start: 03/15/23 09:23 Freq: Status: Active Protocol: Activity Type Activity Date Activity User E-sign Co-sign Detail Recorded Client Recorded Date Recorded By Document 03/15/23 10:02 MW [id number] 03/15/23 10:02 MW Edit Result 03/15/23 10:02 MW (1) [id number] 03/15/23 10:03 MW Edit Result 03/15/23 10:02 MW (2) [id number] 03/15/23 10:04 MW (1) Right - Compression Wrap Colton Wrap => - Tubular Bandage => Single Layer - Size of Tubigrip Used => Size E - Size E ($) => 1 (2) Right - Size of Tubigrip Used Size E => Size D - Size D ($) => 1 - Size E ($) 1 => 03/15/23 10:02 Wound Care Center Nurse 3 #1- R LAT LE (P/O BASAL CELL CA) -Ulcer Cleansing Not Cleansed -Other Covering abd Right -Lotion applied to leg before No compression wrap -Tubular Bandage Single Layer -Size of Tubigrip Used Size D -Size D ($) 1 Treatment Response Procedure Tolerated Well Pain Scale: 0-10 Numeric Is Patient Pain Free? Yes Teaching: Wound Center Dressing Your Wound -Person Taught Patient -Teaching Method Discussion -Response to teaching Verbalize understanding WC - Visit Discharge Discharge Condition Stable Ambulatory Status Ambulatory Transportation Private Auto Accompanied by Medication Reconcilliation completed & No provided to patient/care provider Clinical Summary of Care Provided Yes Assessment/Plan Assessment/Plan (1) Nonhealing nonsurgical wound: CODE(S): T14.8XXA - Other injury of unspecified body region, initial encounter PLAN: Resolved forearm skin tear open to air (2) Cellulitis: CODE(S): L03.90 - Cellulitis, unspecified QUALIFIERS: Site of cellulitis: extremity Site of cellulitis of extremity: upper extremity Laterality: right Qualified Code(s): L03.113 - Cellulitis of right upper limb (3) Ulcer of right leg: CODE(S): L97.919 - Non-pressure chronic ulcer of unspecified part of right lower leg with unspecified severity QUALIFIERS: Non-pressure ulcer stage: with fat layer exposed Qualified Code(s): L97.912 - Non-pressure chronic ulcer of unspecified part of right lower leg with fat layer exposed PLAN: EpiFix #4 applied to the leg with wound veil and Steri-Strips then a dry gauze dressing and Zehra. single-layer Tubigrip to the bilateral lower legs Follow-up in 1 week (4) Varicose veins of both lower extremities: CODE(S): I83.93 - Asymptomatic varicose veins of bilateral lower extremities QUALIFIERS: Varicose vein complication: asymptomatic Qualified Code(s): I83.93 - Asymptomatic varicose veins of bilateral lower extremities (5) Edema of both lower extremities: CODE(S): R60.0 - Localized edema (6) Non-pressure ulcer of right lower extremity: CODE(S): L97.919 - Non-pressure chronic ulcer of unspecified part of right lower leg with unspecified severity QUALIFIERS: Non-pressure ulcer stage: with fat layer exposed Qualified Code(s): L97.912 - Non-pressure chronic ulcer of unspecified part of right lower leg with fat layer exposed
[2023-03-22 10:37] VITALS: BP 110/48; PULSE 69; RESP 18; TEMP 35.7; BMI 23.5
--- NOTE | 2023-03-22 11:53 | PCM.WC.PN ---
History of Present Illness Date of Service: 03/22/23 Chief Complaint: Follow-up on her right lower leg lateral area wound nonhealing since at least November. History of Wound: 72-year-old white female in [place] where she is living during the winter. She had a growth removed from her right lateral lower leg. She is still not sure if it is cancer or not. Was removed only by her regular doctor not a Derm doctor. Still open to the subcutaneous skin. She saw her own doctor up here and she was referred to us from her and put on cephalexin. Recently she was taken off her Lasix and has terrible edema of her lower extremities and abdomen. Patient states she has gained 9 pounds Progress of Wound: The right forearm partial of skin avulsion laceration from the dog scratch is healed. Right lateral leg is almost healed she has a small area in the center that is just not closed we will apply epi #5 to her leg. Subjective Subjective Patient very disappointed she cannot be discharged today but I promised her probably in 1 week Objective Data Objective Data Again as above no sign of infection just the center has some new skin buds but still has not filled them properly for closure Vital Signs: Vital Signs Temp Pulse Resp BP 96.3 F L 69 18 110/48 L 03/22/23 10:37 03/22/23 10:37 03/22/23 10:37 03/22/23 10:37 Weight: 137 lb Body Mass Index (BMI) 23.5 Lab / Micro Data Attestation: I reviewed the patient's lab results. Physical Exam Const oriented x3 General Appearance: cooperative Exam Limitations: no limitations HEENT normocephalic Head and Scalp: normal to inspection Face and Sinus: normal facial exam Nose: external nose normal External Ear: external ears normal Eyes PERRL General Eye: normal appearance of both eyes Neck full ROM General: normal visual inspection Resp normal respiratory effort Effort and Inspection: able to speak in complete sentences Auscultation: clear to auscultation bilaterally Cardio regular rate and regular rhythm Palpation: normal PMI Rate: regular rate Rhythm: regular rhythm GI Auscultation: normoactive bowel sounds Palpation: soft and no hepatosplenomegaly Extremity Extremity Narrative: Edema from at least knees down to even toes like little sausages. Discoloration of her lower legs from probably peripheral vascular disease. She does have obvious varicosities. General Extremity: normal exam except as noted Skin General Skin Exam: erythema and venous stasis Wounds: wounds noted Wound Narrative: Rather large size of a $0.50 piece full-thickness open wound on the right lateral leg. We will try to get studies from the other doctor. Neuro oriented x3 Psych Appearance: grossly normal Speech: normal speech Thought Content: normal thought content Judgement: judgement good Debridement Note Debridement Note Wound debrided: Right lateral lower leg nonhealing surgical wound from a cancer growth that Type of Debridement: Excisional debridement Anesthesia Used: 5% Lidocaine Gel Depth: Down to and including healthy tissue Percentage of wound debrided: 100 Instrument Used: 5mm curette Tissue Removed: Fibrin Severity: Limited To Skin Breakdown Amount of bleeding with debridement: Mild Bleeding Controlled with: Compression and gauze Patient tolerated procedure: Patient tolerated procedure well Post-Debridement Measurements and Additional Note: Post-Debridement Measurements/Treatment - Nurse 1 - General Ulcer Assessment Start: 03/15/23 09:23 Freq: Status: Active Protocol: SAHIL Activity Type Activity Date Activity User E-sign Co-sign Detail Recorded Client Recorded Date Recorded By Document 03/15/23 09:26 DL [id number] 03/15/23 09:37 DL Document 03/22/23 10:37 RB [id number] 03/22/23 10:38 RB 03/15/23 03/22/23 09:26 10:37 - Today's Visit Information Type of service Follow-up Visit Follow-up Visit (Physician/SOIL CHEMIST (Physician/SOIL CHEMIST ) ) Arrival Mode Ambulatory,Cane Ambulatory Transfer Assistance None None Patient Identification Verified (Name & Yes Yes ) Patient Requires Transmission-Based No No Precautions Height and Weight Body Mass Index (BMI) 23.5 23.5 BMI Classification Normal Normal Vital Signs Temperature (97.8 F-99.1 F) 97.4 F L 96.3 F L Temperature Source Temporal Temporal Pulse Rate (60-100) 59 L 69 Pulse Location Monitor Respiratory Rate (12-18) 20 H 18 Respiratory rate source Observation Observation Blood Pressure (90/60-120/80) 123/52 H 110/48 L Blood Pressure Mean (mm Hg) 75 68 Source Monitor Monitor Position Sitting Blood Pressure Location Left Arm History Since Last Visit- (Skip if this is Patient's initial visit) Have you changed medications since your No No last visit? Any new allergies or adverse reactions No No Had a fall/change in ADL's that may No No increase risk of falls Signs or symptoms of abuse and/or No No neglect since last visit Have you been in the hospital since your No No last visit? Has dressing in place as prescribed Yes Yes Has compression in place as prescribed Yes Yes Has offloadiing in place as prescribed No No Experienced any changes in pain level or No No management Pain Scale: 0-10 Numeric Is Patient Pain Free? Yes Yes WC - Nurse 1 - General Ulcer Measurement Start: 03/15/23 09:23 Freq: Status: Active Protocol: Activity Type Activity Date Activity User E-sign Co-sign Detail Recorded Client Recorded Date Recorded By Document 03/15/23 09:26 DL [id number] 03/15/23 09:37 DL Document 03/22/23 10:37 RB [id number] 03/22/23 10:38 RB 03/15/23 03/22/23 09:26 10:37 Wound Center Nurse 1 2. R forearm -Current Size (cm) - Length 0 -Current Size (cm) - Width 0 -Current Size (cm) - Depth 0 -Total Square Cm 0 -Photo Taken Yes -Exudate Amt None Present -Wound Margin Indistinct, Non -Visible -Granulation Amt Large (67-100%) -Granulation Quality [place] -Necrosis Amt None Present (0 %) -Structure Exposed N/A -Texture (Elif-wound Skin Appearance) Scarring -Moisture (Elif-wound Skin Appearance) No Abnormality -Color (Elif-wound Skin Appearance) No Abnormality -Temperature (Elif-wound Skin No Abnormality Appearance) (Pt Warm) -Foul Odor after Cleansing No #1- R LAT LE (P/O BASAL CELL CA) -Combined with other wound No -Current Size (cm) - Length 2.5 2.6 -Current Size (cm) - Width 1.8 2 -Current Size (cm) - Depth 0.1 0.1 -Total Square Cm 4.50 5.2 -Photo Taken Yes -Tunneling No -Undermining/Tunneling No -Circular Undermining No -Exudate Amt Medium Medium -Exudate Type Serosanguineous Serosanguineous -Wound Margin Distinct, Distinct, Outline Outline Attached Attached -Granulation Amt Medium (34-66%) Medium (34-66%) -Granulation Quality Red [place] -Slough/Fibrin Yes -Necrosis Amt Medium (34-66%) Medium (34-66%) -Necrotic Tissue Type Adherent Slough Adherent Slough -Structure Exposed N/A N/A -Texture (Elif-wound Skin Appearance) Scarring Assessed -Moisture (Elif-wound Skin Appearance) No Abnormality Assessed -Color (Elif-wound Skin Appearance) Hemosiderin Assessed Staining -Temperature (Elif-wound Skin No Abnormality Appearance) (Pt Warm) -Tenderness on Palpation (Elif-wound No No Skin Appearance) -Ulcer Cleansing Soap and Water Wound Cleanser -Foul Odor after Cleansing No No -Anesthetic Used 5% Lidocaine 5% Lidocaine Gel Gel Right Calf (cm) 31.8 Right Ankle (cm) 22.6 WC - Nurse 2 - General Ulcer CM Notes Start: 03/15/23 09:23 Freq: Status: Active Protocol: Activity Type Activity Date Activity User E-sign Co-sign Detail Recorded Client Recorded Date Recorded By Document 03/15/23 09:55 MW [id number] 03/15/23 10:02 MW Document 03/22/23 10:59 MW [id number] 03/22/23 11:04 MW 03/15/23 03/22/23 09:55 10:59 Wound Center Nurse 2 2. R forearm -Time 09:59 -Correct Patient Yes -Correct Side, Site, Position Yes -Correct Procedure Yes -Procedure Performed No -Post Debridement (cm) - Length 0 -Post Debridement (cm) - Width 0 -Post Debridement (cm) - Depth 0 -Total Square (Post) (cm) 0 -Wound/Ulcer Outcome Healed- Epithelialized #1- R LAT LE (P/O BASAL CELL CA) -Time 09:59 10:59 -Correct Patient Yes Yes -Correct Side, Site, Position Yes Yes -Correct Procedure Yes Yes -Procedure Performed Yes Yes -Type of Procedure Debridement Debridement -Clinical Debridement Subcutaneous Subcutaneous -Tissue Removed Subcutaneous Subcutaneous -Post Debridement (cm) - Length 2.5 1.9 -Post Debridement (cm) - Width 2.0 1.3 -Post Debridement (cm) - Depth 0.1 0.1 -Total Square (Post) (cm) 5.00 2.47 -Area of Debridement (cm) - Length 2.5 1.9 -Area of Debridement (cm) - Width 2.0 1.3 -Total Square (Area) (cm) 5.00 2.47 -Tunneling No No -Undermining/Tunneling No No -Circular Undermining No No -Wound/Ulcer Outcome Not Healed Not Healed -Ulcer Cleansing Rinsed/ Rinsed/ Irrigated with Irrigated with Saline Saline -Foul Odor after Cleansing No No -Bioengineered Tissue Yes Yes -Type of Bioengineered Tissue Epifix Mesh Epifix -Expiration Date 12/04/27 11/03/27 -Product Lot Number [id number] -Percent Used 100 100 -Lot number of Saline Used [id number] -Bleeding Controlled with Pressure Pressure -Treatment Response Procedure Procedure Tolerated Well Tolerated Well -Offloading No No -Debridement - Subq, 1st 20sq cm No No -Apply Skin Sub - 1st 25 sq cm - Legs 1 1 -Epifix (per sq cm) 4 -Epifix Mesh (per sq cm) 11 Pain Scale: 0-10 Numeric Is Patient Pain Free? Yes Yes WC - Nurse 3 - General Ulcer D/C NN Start: 03/15/23 09:23 Freq: Status: Active Protocol: Activity Type Activity Date Activity User E-sign Co-sign Detail Recorded Client Recorded Date Recorded By Document 03/15/23 10:02 MW [id number] 03/15/23 10:02 MW Edit Result 03/15/23 10:02 MW (1) [id number] 03/15/23 10:03 MW Edit Result 03/15/23 10:02 MW (2) [id number] 03/15/23 10:04 MW Document 03/22/23 11:16 RB [id number] 03/22/23 11:17 RB (1) Right - Compression Wrap Colton Wrap => - Tubular Bandage => Single Layer - Size of Tubigrip Used => Size E - Size E ($) => 1 (2) Right - Size of Tubigrip Used Size E => Size D - Size D ($) => 1 - Size E ($) 1 => 03/15/23 03/22/23 10:02 11:16 Wound Care Center Nurse 3 #1- Deepika JAMESON (P/O BASAL CELL CA) -Ulcer Cleansing Not Cleansed -Other Dressing abd pad/ colton -Primary Dressing Covered/Secured with Dry Gauze -Other Covering abd Right -Lotion applied to leg before No compression wrap -Tubular Bandage Single Layer -Size of Tubigrip Used Size D -Size D ($) 1 -Other colton Treatment Response Procedure Procedure Tolerated Well Tolerated Well Pain Scale: 0-10 Numeric Is Patient Pain Free? Yes Yes Teaching: Wound Center Dressing Your Wound -Person Taught Patient -Teaching Method Discussion -Response to teaching Verbalize understanding WC - Visit Discharge Discharge Condition Stable Stable Ambulatory Status Ambulatory Ambulatory Transportation Private Auto Private Auto Accompanied by Medication Reconcilliation completed & No No provided to patient/care provider Clinical Summary of Care Provided Yes Yes Assessment/Plan Assessment/Plan (1) Nonhealing nonsurgical wound: CODE(S): T14.8XXA - Other injury of unspecified body region, initial encounter PLAN: Resolved forearm skin tear open to air (2) Cellulitis: CODE(S): L03.90 - Cellulitis, unspecified QUALIFIERS: Site of cellulitis: extremity Site of cellulitis of extremity: upper extremity Laterality: right Qualified Code(s): L03.113 - Cellulitis of right upper limb (3) Ulcer of right leg: CODE(S): L97.919 - Non-pressure chronic ulcer of unspecified part of right lower leg with unspecified severity QUALIFIERS: Non-pressure ulcer stage: with fat layer exposed Qualified Code(s): L97.912 - Non-pressure chronic ulcer of unspecified part of right lower leg with fat layer exposed PLAN: EpiFix #5 applied to the leg with wound veil and Steri-Strips then a dry gauze dressing and Zehra. Follow-up in 1 week (4) Varicose veins of both lower extremities: CODE(S): I83.93 - Asymptomatic varicose veins of bilateral lower extremities QUALIFIERS: Varicose vein complication: asymptomatic Qualified Code(s): I83.93 - Asymptomatic varicose veins of bilateral lower extremities (5) Edema of both lower extremities: CODE(S): R60.0 - Localized edema (6) Non-pressure ulcer of right lower extremity: CODE(S): L97.919 - Non-pressure chronic ulcer of unspecified part of right lower leg with unspecified severity QUALIFIERS: Non-pressure ulcer stage: with fat layer exposed Qualified Code(s): L97.912 - Non-pressure chronic ulcer of unspecified part of right lower leg with fat layer exposed
[2023-03-29 11:11] VITALS: BP 107/50; PULSE 61; RESP 18; TEMP 36.1; BMI 23.5
--- NOTE | 2023-03-29 12:09 | PCM.WC.PN ---
History of Present Illness Date of Service: 03/29/23 Chief Complaint: Follow-up on her right lower leg lateral area wound nonhealing since at least November. History of Wound: 72-year-old white female in [place] where she is living during the winter. She had a growth removed from her right lateral lower leg. She is still not sure if it is cancer or not. Was removed only by her regular doctor not a Derm doctor. Still open to the subcutaneous skin. She saw her own doctor up here and she was referred to us from her and put on cephalexin. Recently she was taken off her Lasix and has terrible edema of her lower extremities and abdomen. Patient states she has gained 9 pounds Progress of Wound: Today the wound is healed on the right lateral lower leg on EpiFix #5. Patient tolerated very well patient will be discharged from the wound center Subjective Subjective Patient is very happy with outcomes Objective Data Objective Data As stated above wound is healed patient be discharged from the wound center keep covered for another week for new skin follow-up as needed Vital Signs: Vital Signs Temp Pulse Resp BP 97 F L 61 18 107/50 L 03/29/23 11:11 03/29/23 11:11 03/29/23 11:11 03/29/23 11:11 Weight: 137 lb Body Mass Index (BMI) 23.5 Debridement Note Debridement Note Post-Debridement Measurements and Additional Note: Post-Debridement Measurements/Treatment - Nurse 1 - General Ulcer Assessment Start: 03/15/23 09:23 Freq: Status: Active Protocol: HERMILA.RAFFI Activity Type Activity Date Activity User E-sign Co-sign Detail Recorded Client Recorded Date Recorded By Document 03/15/23 09:26 DL [id number] 03/15/23 09:37 DL Document 03/22/23 10:37 RB [id number] 03/22/23 10:38 RB Document 03/29/23 11:11 RB [id number] 03/29/23 11:15 RB 03/15/23 03/22/23 03/29/23 09:26 10:37 11:11 - Today's Visit Information Type of service Follow-up Visit Follow-up Visit Follow-up Visit (Physician/TIRE BUILDER (Physician/TIRE BUILDER (Physician/TIRE BUILDER ) ) ) Arrival Mode Ambulatory,Cane Ambulatory Ambulatory Transfer Assistance None None None Patient Identification Verified (Name & Yes Yes Yes ) Patient Requires Transmission-Based No No No Precautions Height and Weight Body Mass Index (BMI) 23.5 23.5 23.5 BMI Classification Normal Normal Normal Vital Signs Temperature (97.8 F-99.1 F) 97.4 F L 96.3 F L 97 F L Temperature Source Temporal Temporal Temporal Pulse Rate (60-100) 59 L 69 61 Pulse Location Monitor Monitor Respiratory Rate (12-18) 20 H 18 18 Respiratory rate source Observation Observation Observation Blood Pressure (90/60-120/80) 123/52 H 110/48 L 107/50 L Blood Pressure Mean (mm Hg) 75 68 69 Source Monitor Monitor Monitor Position Sitting Sitting Blood Pressure Location Left Arm Left Arm History Since Last Visit- (Skip if this is Patient's initial visit) Have you changed medications since your No No No last visit? Any new allergies or adverse reactions No No No Had a fall/change in ADL's that may No No No increase risk of falls Signs or symptoms of abuse and/or No No No neglect since last visit Have you been in the hospital since your No No No last visit? Has dressing in place as prescribed Yes Yes Yes Has compression in place as prescribed Yes Yes No Has offloadiing in place as prescribed No No No Experienced any changes in pain level or No No No management Pain Scale: 0-10 Numeric Is Patient Pain Free? Yes Yes Yes WC - Nurse 1 - General Ulcer Measurement Start: 03/15/23 09:23 Freq: Status: Active Protocol: Activity Type Activity Date Activity User E-sign Co-sign Detail Recorded Client Recorded Date Recorded By Document 03/15/23 09:26 DL [id number] 03/15/23 09:37 DL Document 03/22/23 10:37 RB [id number] 03/22/23 10:38 RB Document 03/29/23 11:11 RB [id number] 03/29/23 11:15 RB 03/15/23 03/22/23 03/29/23 09:26 10:37 11:11 Wound Center Nurse 1 2. R forearm -Current Size (cm) - Length 0 -Current Size (cm) - Width 0 -Current Size (cm) - Depth 0 -Total Square Cm 0 -Photo Taken Yes -Exudate Amt None Present -Wound Margin Indistinct, Non -Visible -Granulation Amt Large (67-100%) -Granulation Quality [place] -Necrosis Amt None Present (0 %) -Structure Exposed N/A -Texture (Elif-wound Skin Appearance) Scarring -Moisture (Eilf-wound Skin Appearance) No Abnormality -Color (Elif-wound Skin Appearance) No Abnormality -Temperature (Elif-wound Skin No Abnormality Appearance) (Pt Warm) -Foul Odor after Cleansing No #1- R LAT LE (P/O BASAL CELL CA) -Combined with other wound No No -Current Size (cm) - Length 2.5 2.6 0.1 -Current Size (cm) - Width 1.8 2 0.1 -Current Size (cm) - Depth 0.1 0.1 0.1 -Total Square Cm 4.50 5.2 0.01 -Photo Taken Yes -Tunneling No No -Undermining/Tunneling No No -Circular Undermining No No -Exudate Amt Medium Medium Large -Exudate Type Serosanguineous Serosanguineous Serosanguineous -Wound Margin Distinct, Distinct, Distinct, Outline Outline Outline Attached Attached Attached -Granulation Amt Medium (34-66%) Medium (34-66%) Medium (34-66%) -Granulation Quality [place] -Slough/Fibrin Yes Yes -Necrosis Amt Medium (34-66%) Medium (34-66%) Medium (34-66%) -Necrotic Tissue Type Adherent Slough Adherent Slough Adherent Slough -Structure Exposed N/A N/A N/A -Texture (Elif-wound Skin Appearance) Scarring Assessed Assessed -Moisture (Elif-wound Skin Appearance) No Abnormality Assessed Assessed -Color (Elif-wound Skin Appearance) Hemosiderin Assessed Assessed Staining -Temperature (Elif-wound Skin No Abnormality No Abnormality Appearance) (Pt Warm) (Pt Warm) -Tenderness on Palpation (Elif-wound No No No Skin Appearance) -Ulcer Cleansing Soap and Water Wound Cleanser Wound Cleanser -Foul Odor after Cleansing No No No -Anesthetic Used 5% Lidocaine 5% Lidocaine 5% Lidocaine Gel Gel Gel Right Calf (cm) 31.8 Right Ankle (cm) 22.6 WC - Nurse 2 - General Ulcer CM Notes Start: 03/15/23 09:23 Freq: Status: Active Protocol: Activity Type Activity Date Activity User E-sign Co-sign Detail Recorded Client Recorded Date Recorded By Document 03/15/23 09:55 MW [id number] 03/15/23 10:02 MW Document 03/22/23 10:59 MW [id number] 03/22/23 11:04 MW Document 03/29/23 11:25 MW [id number] 03/29/23 11:27 MW 03/15/23 03/22/23 03/29/23 09:55 10:59 11:25 Wound Center Nurse 2 2. R forearm -Time 09:59 -Correct Patient Yes -Correct Side, Site, Position Yes -Correct Procedure Yes -Procedure Performed No -Post Debridement (cm) - Length 0 -Post Debridement (cm) - Width 0 -Post Debridement (cm) - Depth 0 -Total Square (Post) (cm) 0 -Wound/Ulcer Outcome Healed- Epithelialized #1- R LAT LE (P/O BASAL CELL CA) -Time 09: 10:59 11:25 -Correct Patient Yes Yes Yes -Correct Side, Site, Position Yes Yes Yes -Correct Procedure Yes Yes Yes -Procedure Performed Yes Yes No -Type of Procedure Debridement Debridement -Clinical Debridement Subcutaneous Subcutaneous -Tissue Removed Subcutaneous Subcutaneous Subcutaneous -Post Debridement (cm) - Length 2.5 1.9 0 -Post Debridement (cm) - Width 2.0 1.3 0 -Post Debridement (cm) - Depth 0.1 0.1 0 -Total Square (Post) (cm) 5.00 2.47 0 -Area of Debridement (cm) - Length 2.5 1.9 -Area of Debridement (cm) - Width 2.0 1.3 -Total Square (Area) (cm) 5.00 2.47 -Tunneling No No No -Undermining/Tunneling No No No -Circular Undermining No No No -Wound/Ulcer Outcome Not Healed Not Healed Healed- Epithelialized -Ulcer Cleansing Rinsed/ Rinsed/ Irrigated with Irrigated with Saline Saline -Foul Odor after Cleansing No No -Bioengineered Tissue Yes Yes -Type of Bioengineered Tissue Epifix Mesh Epifix -Expiration Date 12/04/27 11/03/27 -Product Lot Number [id number] -Percent Used 100 100 -Lot number of Saline Used [id number] -Bleeding Controlled with Pressure Pressure -Treatment Response Procedure Procedure Tolerated Well Tolerated Well -Offloading No No -Debridement - Subq, 1st 20sq cm No No -Apply Skin Sub - 1st 25 sq cm - Legs 1 1 -Epifix (per sq cm) 4 -Epifix Mesh (per sq cm) 11 Pain Scale: 0-10 Numeric Is Patient Pain Free? Yes Yes Yes WC - Nurse 3 - General Ulcer D/C NN Start: 03/15/23 09:23 Freq: Status: Active Protocol: Activity Type Activity Date Activity User E-sign Co-sign Detail Recorded Client Recorded Date Recorded By Document 03/15/23 10:02 MW [id number] 03/15/23 10:02 MW Edit Result 03/15/23 10:02 MW (1) [id number] 03/15/23 10:03 MW Edit Result 03/15/23 10:02 MW (2) [id number] 03/15/23 10:04 MW Document 03/22/23 11:16 RB [id number] 03/22/23 11:17 RB Document 03/29/23 11:27 MW [id number] 03/29/23 11:28 MW (1) Right - Compression Wrap Colton Wrap => - Tubular Bandage => Single Layer - Size of Tubigrip Used => Size E - Size E ($) => 1 (2) Right - Size of Tubigrip Used Size E => Size D - Size D ($) => 1 - Size E ($) 1 => 03/15/23 03/22/23 03/29/23 10:02 11:16 11:27 Wound Care Center Nurse 3 #1- R LAT LE (P/O BASAL CELL CA) -Ulcer Cleansing Not Cleansed -Primary Dressing Applied Mepilex Border -Other Dressing abd pad/ colton -Primary Dressing Covered/Secured with Dry Gauze Dry Gauze, Secured with Tape -Other Covering abd -Mepilex Border 1 Right -Lotion applied to leg before No compression wrap -Tubular Bandage Single Layer -Size of Tubigrip Used Size D -Size D ($) 1 -Other colton Treatment Response Procedure Procedure Procedure Tolerated Well Tolerated Well Tolerated Well Pain Scale: 0-10 Numeric Is Patient Pain Free? Yes Yes Yes Teaching: Wound Center Discharge Instructions -Person Taught Patient -Teaching Method Discussion -Response to teaching Verbalize understanding Dressing Your Wound -Person Taught Patient -Teaching Method Discussion -Response to teaching Verbalize understanding WC - Visit Discharge Discharge Condition Stable Stable Stable Ambulatory Status Ambulatory Ambulatory Ambulatory Transportation Private Auto Private Auto Private Auto Accompanied by Medication Reconcilliation completed & No No No provided to patient/care provider Clinical Summary of Care Provided Yes Yes Yes Assessment/Plan Assessment/Plan (1) Nonhealing nonsurgical wound: CODE(S): T14.8XXA - Other injury of unspecified body region, initial encounter PLAN: Resolved forearm skin tear open to air (2) Cellulitis: CODE(S): L03.90 - Cellulitis, unspecified QUALIFIERS: Site of cellulitis: extremity Site of cellulitis of extremity: upper extremity Laterality: right Qualified Code(s): L03.113 - Cellulitis of right upper limb (3) Ulcer of right leg: CODE(S): L97.919 - Non-pressure chronic ulcer of unspecified part of right lower leg with unspecified severity QUALIFIERS: Non-pressure ulcer stage: with fat layer exposed Qualified Code(s): L97.912 - Non-pressure chronic ulcer of unspecified part of right lower leg with fat layer exposed PLAN: Discharge from the wound center follow-up as needed (4) Varicose veins of both lower extremities: CODE(S): I83.93 - Asymptomatic varicose veins of bilateral lower extremities QUALIFIERS: Varicose vein complication: asymptomatic Qualified Code(s): I83.93 - Asymptomatic varicose veins of bilateral lower extremities (5) Edema of both lower extremities: CODE(S): R60.0 - Localized edema (6) Non-pressure ulcer of right lower extremity: CODE(S): L97.919 - Non-pressure chronic ulcer of unspecified part of right lower leg with unspecified severity QUALIFIERS: Non-pressure ulcer stage: with fat layer exposed Qualified Code(s): L97.912 - Non-pressure chronic ulcer of unspecified part of right lower leg with fat layer exposed
== END 2023-04-03 23:59 | disposition home or self-care (01) ==
LOC: WC 10:45
PROVIDERS: PCP Internal Medicine; Referring Provider Internal Medicine; Visit Provider Nurse Practitioner
DX: I83.018 Varicose veins of right lower extremity with ulcer other part of lower leg (principal); L97.811 Non-pressure chronic ulcer of other part of right lower leg limited to breakdown of skin; R60.0 Localized edema; S51.811A Laceration without foreign body of right forearm, initial encounter; W54.1XXA Struck by dog, initial encounter; T14.8XXA Other injury of unspecified body region, initial encounter; L03.113 Cellulitis of right upper limb; I83.92 Asymptomatic varicose veins of left lower extremity
CPT/HCPCS: 15271; 99213; Q4186; G0463

== ENCOUNTER 2023-04-19 10:18 | Outpatient (RCR) | payer MEDICARE, OTHER, SELFPAY ==
[2023-04-04 00:38] VITALS: BP 107/50; PULSE 61; RESP 18; TEMP 36.1; BMI 23.5
[2023-04-19 10:55] VITALS: BP 120/65; PULSE 63; RESP 16; TEMP 36.1; BMI 23.5
--- NOTE | 2023-04-19 12:24 | PN.PCM_ITS ---
History of Present Illness Date of Service: 04/19/23 Chief Complaint: Follow-up on her right lower leg lateral area wound nonhealing since at least November. History of Wound: 72-year-old white female in [place] where she is living during the winter. She had a growth removed from her right lateral lower leg. She is still not sure if it is cancer or not. After finally getting through to the dermatology she found that they never sent a biopsy off. She saw her own doctor up here and she was referred to us from her and put on cephalexin. Recently she was taken off her Lasix and has terrible edema of her lower extremities and abdomen. Patient states she has gained 9 pounds Patient was tired of coming and wanted to be healed out so we did and now she returns 1 month later. Patient states that the edema in her lower extremities is because that right lower leg to reopen. We are still able to get EpiFix she will start on #6 today. We will also refer her to dermatology here and get a another biopsy of the wound and see if it is cancer or not before we waste any more EpiFix is on her. Also refer to Dr. Galaviz for vascular Her biggest complaint is that she is swelling a lot in her lower extremities. Worried about a blood clot We will get a venous duplex study done wound center style to see if there is any blockages or blood clot. We are getting that stat at 2:00 today Progress of Wound: Wound is flat macular open nonhealing. Right lateral lower leg bilateral lower legs are edematous pitting. Subjective Subjective Patient is good for getting a duplex study done today and we will refer her to dermatology and to vascular Objective Data Objective Data Right lateral lower leg is still not healed it still open debrided fibrin off but has some devitalized tissue also a lot of pitting edema noted in the right lower leg also in the left lower leg but right leg is worse than left. We will get duplex study some stat done today and get her referred to dermatology in the next couple of days for biopsy Patient states that she feels the edema has reopened that wound on her right lower leg and that is why she returned Vital Signs: Vital Signs Temp Pulse Resp BP O2 Del Method 96.9 F L 63 16 120/65 Room Air 04/19/23 10:55 04/19/23 10:55 04/19/23 10:55 04/19/23 10:55 04/19/23 10:55 Oxygen Delivery Method Room Air Weight: 137 lb Body Mass Index (BMI) 23.5 Lab / Micro Data Attestation: I reviewed the patient's lab results. Physical Exam Const oriented x3 General Appearance: cooperative Exam Limitations: no limitations HEENT normocephalic Head and Scalp: normal to inspection Face and Sinus: normal facial exam Nose: external nose normal External Ear: external ears normal Eyes PERRL General Eye: normal appearance of both eyes Neck full ROM General: normal visual inspection Resp normal respiratory effort Effort and Inspection: able to speak in complete sentences Auscultation: clear to auscultation bilaterally Cardio regular rate and regular rhythm Palpation: normal PMI Rate: regular rate Rhythm: regular rhythm GI Auscultation: normoactive bowel sounds Palpation: soft and no hepatosplenomegaly Extremity Extremity Narrative: Edema from at least knees down to even toes like little sausages. Discoloration of her lower legs from probably peripheral vascular disease. She does have obvious varicosities. General Extremity: normal exam except as noted Skin General Skin Exam: erythema and venous stasis Wounds: wounds noted Wound Narrative: Rather large size of a $0.50 piece full-thickness open wound on the right lateral leg. We will try to get studies from the other doctor. Neuro oriented x3 Psych Appearance: grossly normal Speech: normal speech Thought Content: normal thought content Judgement: judgement good Debridement Note Debridement Note Wound debrided: Right lateral lower leg nonhealing nonsurgical wound from a biopsy of growt Type of Debridement: Excisional debridement Anesthesia Used: 5% Lidocaine Gel Depth: in the subcutaneous layer Percentage of wound debrided: 100 Instrument Used: 5mm curette Severity: Fat Layer Exposed Amount of bleeding with debridement: Mild Bleeding Controlled with: Compression and gauze Patient tolerated procedure: Patient tolerated procedure well Post-Debridement Measurements and Additional Note: Post-Debridement Measurements/Treatment - Nurse 1 - General Ulcer Assessment Start: 04/19/23 10:55 Freq: Status: Active Protocol: SAHIL Activity Type Activity Date Activity User E-sign Co-sign Detail Recorded Client Recorded Date Recorded By Document 04/19/23 10:55 [facility] [id number] 04/19/23 11:03 [facility] 04/19/23 10:55 - Today's Visit Information Type of service Follow-up Visit (Physician/PROJECT INSPECTOR ) Arrival Mode Ambulatory,Cane Transfer Assistance None Patient Identification Verified (Name & Yes ) Patient Requires Transmission-Based No Precautions Height and Weight Body Mass Index (BMI) 23.5 BMI Classification Normal Vital Signs Temperature (97.8 F-99.1 F) 96.9 F L Temperature Source Temporal Pulse Rate (60-100) 63 Pulse Location Monitor Respiratory Rate (12-18) 16 Respiratory rate source Observation Oxygen Delivery Method Room Air Blood Pressure (90/60-120/80) 120/65 Blood Pressure Mean (mm Hg) 83 Source Monitor Position Sitting Blood Pressure Location Left Arm History Since Last Visit- (Skip if this is Patient's initial visit) Left Footwear Regular Shoe Right Footwear Regular Shoe Pain Scale: 0-10 Numeric Is Patient Pain Free? Yes WC - Nurse 1 - General Ulcer Measurement Start: 04/19/23 10:55 Freq: Status: Active Protocol: Activity Type Activity Date Activity User E-sign Co-sign Detail Recorded Client Recorded Date Recorded By Document 04/19/23 10:55 [facility] [id number] 04/19/23 11:03 [facility] 04/19/23 10:55 Wound Center Nurse 1 #1- R LAT LE (P/O BASAL CELL CA) -Combined with other wound No -Current Size (cm) - Length 1.7 -Current Size (cm) - Width 1.4 -Current Size (cm) - Depth 0.1 -Total Square Cm 2.38 -Date of Last Picture (Recall this 04/19/23 field) -Photo Taken Yes -Epithelialization None Present -Tunneling No -Undermining/Tunneling No -Circular Undermining No -Exudate Amt Medium -Exudate Type Serosanguineous -Wound Margin Flat & Intact -Granulation Amt Large (67-100%) -Granulation Quality Red -Slough/Fibrin Yes -Necrosis Amt Small (1-33%) -Necrotic Tissue Type Adherent Slough -Texture (Elif-wound Skin Appearance) Assessed -Moisture (Elif-wound Skin Appearance) Assessed,Dry/ Scaly -Color (Elif-wound Skin Appearance) Assessed -Temperature (Elif-wound Skin No Abnormality Appearance) (Pt Warm) -Tenderness on Palpation (Elif-wound No Skin Appearance) -Ulcer Cleansing Rinsed/ Irrigated with Saline -Foul Odor after Cleansing No -Anesthetic Used 5% Lidocaine Gel Lower Limb Edema Present Yes Right Calf (cm) 37.2 Right Ankle (cm) 23.6 WC - Nurse 2 - General Ulcer CM Notes Start: 04/19/23 10:55 Freq: Status: Active Protocol: Activity Type Activity Date Activity User E-sign Co-sign Detail Recorded Client Recorded Date Recorded By Document 04/19/23 11:14 MW [id number] 04/19/23 11:29 MW 04/19/23 11:14 Wound Center Nurse 2 #1- R LAT GISELL (P/O BASAL CELL CA) -Time 11:17 -Correct Patient Yes -Correct Side, Site, Position Yes -Correct Procedure Yes -Procedure Performed Yes -Type of Procedure Debridement -Clinical Debridement Subcutaneous -Tissue Removed Subcutaneous -Post Debridement (cm) - Length 1.8 -Post Debridement (cm) - Width 1.3 -Post Debridement (cm) - Depth 0.1 -Total Square (Post) (cm) 2.34 -Area of Debridement (cm) - Length 1.8 -Area of Debridement (cm) - Width 1.3 -Total Square (Area) (cm) 2.34 -Tunneling No -Undermining/Tunneling No -Circular Undermining No -Wound/Ulcer Outcome Not Healed -Ulcer Cleansing Rinsed/ Irrigated with Saline -Foul Odor after Cleansing No -Bioengineered Tissue Yes -Type of Bioengineered Tissue Epifix 18mm Disc -Expiration Date 01/03/28 -Product Lot Number [id number] -Percent Used 100 -Lot number of Saline Used [id number] -Bleeding Controlled with NA,Pressure -Treatment Response Procedure Tolerated Well -Offloading No -Debridement - Subq, 1st 20sq cm No -Apply Skin Sub - 1st 25 sq cm - Legs 1 -Epifix 18mm Disc 3 Pain Scale: 0-10 Numeric Is Patient Pain Free? Yes - Nurse 3 - General Ulcer D/C NN Start: 04/19/23 10:55 Freq: Status: Active Protocol: Activity Type Activity Date Activity User E-sign Co-sign Detail Recorded Client Recorded Date Recorded By Document 04/19/23 11:45 [facility] [id number] 04/19/23 11:46 BM 04/19/23 11:45 Wound Care Center Nurse 3 #1- R VICENTA JAMESON (P/O BASAL CELL CA) -Primary Dressing Applied Mepilex Border -Other Dressing EPIFIX -Mepilex Border 1 Pain Scale: 0-10 Numeric Is Patient Pain Free? Yes WC - Visit Discharge Discharge Condition Stable Ambulatory Status Ambulatory,Cane Transportation Private Auto Accompanied by Assessment/Plan Assessment/Plan (1) Cellulitis: CODE(S): L03.90 - Cellulitis, unspecified QUALIFIERS: Site of cellulitis: extremity Site of cellulitis of extremity: upper extremity Laterality: right Qualified Code(s): L03.113 - Cellulitis of right upper limb (2) Ulcer of right leg: CODE(S): L97.919 - Non-pressure chronic ulcer of unspecified part of right lower leg with unspecified severity QUALIFIERS: Non-pressure ulcer stage: with fat layer exposed Qualified Code(s): L97.912 - Non-pressure chronic ulcer of unspecified part of right lower leg with fat layer exposed PLAN: EpiFix #6 applied to right lower leg with a veil and Aquacel extra over top Do not get wet follow-up in 1 week We will do a referral to dermatology and to vascular Patient has a stat duplex study done at 2:00 today we will get results and call. (3) Varicose veins of both lower extremities: CODE(S): I83.93 - Asymptomatic varicose veins of bilateral lower extremities QUALIFIERS: Varicose vein complication: asymptomatic Qualified C ode(s): I83.93 - Asymptomatic varicose veins of bilateral lower extremities (4) Edema of both lower extremities: CODE(S): R60.0 - Localized edema (5) Non-pressure ulcer of right lower extremity: CODE(S): L97.919 - Non-pressure chronic ulcer of unspecified part of right lower leg with unspecified severity QUALIFIERS: Non-pressure ulcer stage: with fat layer exposed Qualified Code(s): L97.912 - Non-pressure chronic ulcer of unspecified part of right lower leg with fat layer exposed
--- NOTE | 2023-04-19 14:00 | VDLE_ITS ---
Version 5 Reason For Study: RLE Ulcer RIGHT LEFT CFV is compressible, spontaneous, phasic, CFV is compressible, spontaneous, phasic, competent and demonstrates normal competent, and demonstrates normal augmentation. augmentation. FV is compressible, spontaneous, phasic, FV is compressible, spontaneous, phasic, competent and demonstrates normal competent and demonstrates normal augmentation. augmentation. POP V is compressible, spontaneous, phasic, POP V is compressible, spontaneous, phasic, competent and demonstrates normal competent and demonstrates normal augmentation. augmentation. T/P Trunk is compressible. T/P Trunk is compressible. PTV is compressible. PTV is compressible. RT PerV is compressible. LT PerV is compressible. SFJ is competent and measures 0.56 cm. SFJ is competent and measures 0.82 cm. GSV proximal thigh measures 0.54 x 0.54 cm. GSV proximal thigh measures 0.38 x 0.40 cm. ASV mid thigh is INCOMPETENT for greater GSV from dist thigh to prox calf appears than 0.5 seconds and measures 0.34 x 0.43 stripped/ablated. cm. ASV at knee is Dilated and Partially GSV at knee measures 0.26 x 0.27 cm. Compressible with intraluminal echoes. GSV above knee is INCOMPETENT for greater Possible acute SVT. than 0.5 seconds. Multiple varicosities noted throughout calf. GSV below knee is competent. GSV above knee is competent. ASV mid calf is INCOMPETENT for greater than GSV below knee is INCOMPETENT for greater 0.5 seconds and measures 0.39 x 0.46 cm. than 0.5 seconds. SSV proximal calf is competent and measures SSV proximal calf is competent and measures 0.19 x 0.20 cm. 0.15 x 0.16 cm. Procedure Exam performed in department. The exam was diagnostic. A preliminary report was called and/or faxed to Mariela Martines NP. VL/Venous Duplex US - Manuel Extrem Interpretation Summary Deep veins of the lower extremities are bilaterally patent and compressible seg mentally. There is no evidence of deep vein thrombosis on either side. Valvular competence appears in tact within the proximal deep venous systems bilaterally. The right great saphenous vein appear s patent and compressible segmentally. Sapheno-femoral junctions are bilaterally competent . The right great saphenous vein appears incompetent above the knee. The right great saphenous ve in appears competent below the knee. The left great saphenous vein appears competent above the knee. The left great saphenous vein appears incompetent below the knee. The left great saphenous vei n is absent from the distal thigh to the proximal calf. Small saphenous veins are patent and compete nt bilaterally. The accessory saphenous vein in the right mid-thigh is incompetent. The accessory s aphenous vein in the right mid-calf is incompetent. Acute and chronic superficial thrombophlebitis a re noted in the accessory saphenous vein at the left knee. Multiple superficial varicosities ar e noted throughout the left calf. Ordering Physician: Mariela Martines Referring Physician: Ernesto Rodriguez Performed By: Jamari Frias RVT
== END 2023-05-01 08:10 | disposition home or self-care (01) ==
LOC: WC 10:18
PROVIDERS: PCP Internal Medicine; Referring Provider Internal Medicine; Visit Provider Nurse Practitioner
DX: I83.018 Varicose veins of right lower extremity with ulcer other part of lower leg (principal); L97.812 Non-pressure chronic ulcer of other part of right lower leg with fat layer exposed; R60.0 Localized edema; L03.90 Cellulitis, unspecified
CPT/HCPCS: 15271; 93970; Q4186

== ENCOUNTER → 2023-04-26 | Outpatient (CLI) | payer MEDICARE, OTHER, SELFPAY ==
[2023-04-26 12:19] LABS: Absolute Lymphocyte Count 1.05 X10^3/uL (0.83-4.51); Absolute Neutrophil Count 3.4 X10^3/uL (2.0-7.7); Basophil# 0.04 X10^3/uL; Basophil% 0.8 % (0-1); Eosinophil# 0.04 X10^3/uL; Eosinophils% 0.8 % (0-5); Hematocrit 34.4 % (37-47); Lymphocyte # 1.05 X10^3/ul (0.83-4.51); Lymphocyte % 21.2 % (19-41); Mean Corp Hgb Conc 34.9 g/dL (32-36); Mean Corpuscular Hgb 36.1 pg (27.0-32.0); Mean Corpuscular Volume 103.6 fL (81-99); Mean Platelet Vol. 8.9 fl (6.2-12.0); Monocyte# 0.41 X10^3/uL; Monocyte% 8.3 % (0-10); NRBC Flagged by Analyzer 0 % (0-5); Neutrophil % 68.5 % (47-70); Platelet Count 141 K/mm3 (150-450); RBC Distribution Width CV 13.5 % (11.6-14.6); RBC Distribution Width SD 51.7 fl (35.1-43.9); Red Blood Count 3.32 M/mm3 (4.2-5.4)
[2023-04-26 13:29] LABS: ALB/GLOB Ratio 0.7 RATIO (0.9-2.4); AST(SGOT) 74 U/L (15-37); Alanine Aminotransfer ALT/SGPT 24 U/L (13-56); Albumin, Serum 2.9 g/dL (3.2-5.0); Alkaline Phosphatase 258 U/L (45-117); Anion Gap 7 (5-15); BUN 8 mg/dL (7-18); BUN/Creat Ratio 12.9 RATIO (10-20); Calcium,Total 9.3 mg/dL (8.5-10.1); Chloride 96 mmol/L (98-107); Creatinine, Serum 0.62 mg/dL (0.55-1.02); EST Glomerular Filtration Rate 101 mL/min (>60); Est Glom Filt Rate - Afr Amer 122 mL/min (>60); Glucose 107 mg/dL (74-106); Potassium 3.9 mmol/L (3.5-5.1); Protein, Total 6.9 g/dL (6.4-8.2); Sodium Level 131 mmol/L (136-145)
== END | disposition home or self-care (01) ==
LOC: BIMLAB 11:26
PROVIDERS: PCP Internal Medicine; Visit Provider Internal Medicine
DX: Z01.818 Encounter for other preprocedural examination (principal)
CPT/HCPCS: 36415; 80053; 85025

== ENCOUNTER → 2023-05-03 | Outpatient (CLI) | payer MEDICARE, OTHER, SELFPAY ==
[2023-05-03 15:42] LABS: ALB/GLOB Ratio 0.7 RATIO (0.9-2.4); AST(SGOT) 70 U/L (15-37); Alanine Aminotransfer ALT/SGPT 30 U/L (13-56); Albumin, Serum 2.9 g/dL (3.2-5.0); Alkaline Phosphatase 299 U/L (45-117); Anion Gap 6 (5-15); BUN 9 mg/dL (7-18); BUN/Creat Ratio 13.8 RATIO (10-20); Calcium,Total 9.2 mg/dL (8.5-10.1); Chloride 100 mmol/L (98-107); Creatinine, Serum 0.65 mg/dL (0.55-1.02); EST Glomerular Filtration Rate 95 mL/min (>60); Est Glom Filt Rate - Afr Amer 115 mL/min (>60); GGTP 1353 U/L (5-55); Globulin 4.1 g/dL (2.2-4.2); Glucose 101 mg/dL (74-106); Potassium 4.4 mmol/L (3.5-5.1); Sodium Level 133 mmol/L (136-145)
== END | disposition home or self-care (01) ==
LOC: BIMLAB 13:39
PROVIDERS: PCP Internal Medicine; Visit Provider Internal Medicine
DX: E87.6 Hypokalemia (principal); R74.8 Abnormal levels of other serum enzymes
CPT/HCPCS: 36415; 80053; 82140; 82977

== ENCOUNTER → 2023-05-10 | Outpatient (CLI) | payer MEDICARE, OTHER, SELFPAY ==
--- NOTE | 2023-05-10 09:06 | US_ITS ---
STUDY: ULTRASOUND BREAST - LEFT REASON FOR EXAM: Female, 72 years old. Abnormal screening mammogram. TECHNIQUE: Axial and longitudinal images of the LEFT breast were performed with a high resolution ultrasound transducer. # OF IMAGES: 13 COMPARISON: Comparison is made with prior mammogram dated May 10, 2023. FINDINGS: LEFT Breast: There is a 9 mm x 11 mm x 9 mm hypoechoic irregular solid nodule at the 3:00 position of the breast at 7 cm from the nipple. A similar appearing nodule is seen at the 2:00 position of the breast and 9 cm from the nipple. This measures 7 mm x 4 mm x 5 mm. Increased vascularity is seen. Biopsies of both lesions recommended. US/Breast Limited Unilateral IMPRESSION: 2 suspicious lesions are seen at the 3:00 and 2:00 position of the left breast as described. Biopsy recommended. ASSESSMENT CATEGORY: BIRADS Category 5: Highly Suggestive of Malignancy - Appropriate Action Should Be Taken. A letter regarding these results will be sent to the patient by the facility within 30 days. Electronically Signed: Nahum Kelley MD at 14:10 EDT ,
--- NOTE | 2023-05-10 09:06 | BI_ITS ---
MAMMOGRAPHY - BILATERAL DIAGNOSTIC REASON FOR EXAM: Female, 72 years old. One and a half week history of left breast lump. PERTINENT HISTORY: Non-contributory. TECHNIQUE: Digital bilateral breast zana (3D mammographic acquisition) in the CC and MLO projections. 2-D mediolateral oblique (MLO) and craniocaudad (CC) views of both breasts were obtained. CAD: Full Field Digital Mammography with Computer Added Detection was performed. COMPARISON: Comparison is made with prior abdomen examination dated June 24, 2019. FINDINGS: Breast Composition: The breasts are heterogeneously dense, which may obscure small masses. The palpable lump corresponds to a 1.1 cm x 1.1 cm spiculated nodule in the deep upper lateral aspect of the left breast. Correlation with ultrasound is recommended. No other significant abnormalities are identified. BI/DIAG MAMM W/CAD, BILAT IMPRESSION: 1.1 cm by 1.1 cm spiculated nodule in the deep upper lateral aspect of the left breast. Correlation with ultrasound is recommended. ASSESSMENT CATEGORY: BIRADS Category 0: Incomplete. Need additional imaging evaluation. A letter regarding these results will be sent to the patient by the facility within 30 days. Approximately 10% of breast cancers are not detected by mammography. A normal mammogram should not delay biopsy of a clinically suspicious abnormality. Electronically Signed: Nahum Kelley MD at 10:47 EDT ,
== END | disposition home or self-care (01) ==
LOC: OPBI 09:04
PROVIDERS: PCP Internal Medicine; Referring Provider Internal Medicine; Visit Provider Internal Medicine
DX: R92.8 Other abnormal and inconclusive findings on diagnostic imaging of breast (principal); N63.20 Unspecified lump in the left breast, unspecified quadrant
CPT/HCPCS: 76642; 77062; 77066; G0279

== ENCOUNTER → 2023-05-16 | Outpatient (CLI) | payer MEDICARE, OTHER, SELFPAY ==
--- NOTE | 2023-05-15 | IMM_PTH ---
PATIENT: MARY ALICE GA LOC: [facility] U#:[id number] AGE/SX: 72/F ROOM: RE05/16/[address]: Dr. Uday Brooks MD : 1950 BED: DIS: 05/16/2023 SPEC #: [id number] RECD: 05/17/23 14:29 STATUS: KATHRYN REStephan #: [id number] TED: 05/15/23 00:[address]: Uday Brooks DEPT: IMMUNOHISTOCHEMISTRY RECD BY: Terri Souza ENTERED: 05/17/23 14:32 SP TYPE: IMMUNO OTHR DR: Dr. Ernesto Rodriguez MD Tissues: A - Left breast, NOS B - Left breast, NOS C - Axillary lymph node, NOS Procedures: CALPONIN-1 (add) CK5-6 (add) CK7 (add) CK8 (add) E-CAD (add) HER2 MARIAN (add) KI-67 (add) P53 (add) SC (add) IN SITU HYBRIDIZATION Pankeratin (initial) P40 (add) ER (initial) PHYSICIAN & [place] [phone] SPECIMEN INFORMATION: Tissue Source: A - Left breast tissue 2 o'clock, 9 cm from nipple, B - Left breast tissue 3 o'clock, 7 cm from nipple, C - Left lymph node Clinical Info: Breast nodule Specimen Number: [id number] A-C CPT code: 94179 x3, 54948 x13, 01134 x6, 27527 x4 METHODOLOGY: Deparaffinized sections of prefer/formalin-fixed tissue or PAP/DQ stained slides are incubated with monoclonal/polyclonal antibodies/oligonucleotide probes. Localization is made via biotin free immunoperoxidase method. Appropriate controls are performed and reacted as expected. Results on target cell population are indicated in the following table: RESULTS: ANTIBODY / CLONE RESULT Block A E-Cad (ECH-6) positive CK8 (40vczgB49) positive Calponin-1 (NU108M) negative CK5-6 (D5 & 1684) negative P40 (BC28) negative P53 (DO-7) negative (null pattern) Ki-67 (30-9) positive, low (~15%) MORPHOMETRIC ANALYSIS ER (clone 6F11) >95%, strong intensity SC (clone 16/1E2) >95%, strong intensity Her-2Neu (clone CB11) 1-2+ Block B E-Cad (ECH-6) positive CK8 (35qnyaR83) positive Calponin-1 (PT783E) negative * CK5-6 (D5 & 1684) negative * P40 (BC28) negative * P53 (DO-7) positive, rare cells (wild type pattern) Ki-67 (30-9) positive * Positive in the area of DCIS. MORPHOMETRIC ANALYSIS ER (clone 6F11) >95%, strong intensity SC (clone 16/1E2) >95%, strong intensity Her-2Neu (clone CB11) 1-2+ Block C AE1-3 (AE1/AE3/PCK26) negative CK7 (OV-TL12/30) negative The prognostic test for HER2 is performed on formalin-fixed paraffin embedded tissue. A 3+ (positive) staining pattern is defined as intense, homogeneous, complete, circumferential membranous staining in >10% of contiguous tumor cells. A similar weak (2+) staining pattern is interpreted as equivocal. RYAN follow-up testing is recommended for all equivocal cases. Positivity/negativity for ER/SC is reported if > or < 1% of the tumor cells are immuno- reactive, respectively. The ASCO/CAP criteria is used for scoring. Reference: Journal of Clinical Oncology, 2013; 31:1577-9942 & 2010; 16:2942-1157. Duration of fixation: 5.5 Hrs; Sample Adequate: Yes. These assays have not been validated on decalcified tissues. Results should be interpreted with caution given the likelihood of false negativity on decalcified specimens. These tests were developed and their performance characteristics determined by [facility]. They may not have been cleared or approved by the U.S. Food and Drug Administration. The FDA has determined that such clearance or approval is not necessary. The above immunohistochemical/dualISH markers are ordered and reviewed by the Pathologist. INTERPRETATION: A. Left breast tissue 2 o'clock, 9 cm from nipple, core biopsy: Invasive ductal carcinoma, nuclear grade 2. Positive for estrogen receptors (favorable prognostic indicator). Positive for progesterone receptors (favorable prognostic indicator). Equivocal for overexpression of FLC4ngm. B. Left breast tissue 3 o'clock, 7 cm from nipple, core biopsy: Invasive ductal carcinoma. Ductal carcinoma in situ. Positive for estrogen receptors (favorable prognostic indicator). Positive for progesterone receptors (favorable prognostic indicator). Equivocal for overexpression of JVQ1epz. C. Left lymph node, core biopsy: Lymph node tissue, negative for metastatic carcinoma. SJ:rg 05/18/2023 ADDENDUM ADDENDUM ADDENDUM ADDENDUM ADDENDUM ADDENDUM ADDENDUM ADDENDUM ADDENDUM ADDENDUM ADDENDUM ADDENDUM ADDENDUM ADDENDUM ADDENDUM ADDENDUM ADDENDUM ADDENDUM ADDENDUM ADDENDUM ADDENDUM ADDENDUM ADDENDUM ADDENDUM ADDENDUM ADDENDUM ADDENDUM ADDENDUM ADDENDUM ADDENDUM ADDENDUM ADDENDUM 05/22/2023 11:11 ADDENDUM 05/22/2023 11:11 ADDENDUM 05/22/2023 11:11 ADDENDUM 05/22/2023 11:11 ADDENDUM 05/22/2023 11:11 IN SITU HYBRIDIZATION (RYAN) FOR HER2 Specimen A Interpretation: Negative / Not Amplified HER2 : CEP-17 Ratio: 0.8 Average HER2 Signal: 1.4 Average CEP-17 Signal: 1.65 Number of Tumor Cells Scanned: 50 Specimen B Interpretation: Negative / Not Amplified HER2 : CEP-17 Ratio: 1.09 Average HER2 Signal: 2.35 Average CEP-17 Signal: 2.1 Number of Tumor Cells Scanned: 50 Interpretative Information: The INFORM HER2 Dual RYAN DNA Probe Cocktail assay is performed on formalin-fixed paraffin embedded tissue and determines HER2 gene status by detecting HER2 copies via silver in situ hybridization (SISH) and Chromosome 17 copies via chromogenic red in situ hybridization on tumor cells. A minimum of 20 cells representing > 10% of contiguous and homogeneous invasive tumor cells were analyzed. HER2 gene status is classified as Non-amplified (HER2/Chr17 ratio < 2.0) or Amplified (HER2/Chr17 ratio greater than or equal to 2.0). If the resulting HER2/Chr17 ratio falls within 1.8 - 2.2 (Borderline), retesting by FISH is recommended. Reference: Hardeep AC, Richy ANSARIH, Jose Juan DG, et al: Recommendations for Human Epidermal Growth Factor Receptor 2 Testing in Breast Cancer: [place] Society of Clinical On[employer] / [employer] [place] [employer] Clinical Practice Guideline Update. J Clin Oncol 31:2388-2640, 2013. SJ:candice 05/22/2023
--- NOTE | 2023-05-15 14:45 | BR_PTH ---
PATIENT: MARY ALICE GA LOC: [facility] U#:[id number] AGE/SX: 72/F ROOM: RE05/16/[address]: Dr. Uday Brooks MD : 1950 BED: DIS: 05/16/2023 SPEC #: [id number] RECD: 05/16/23 07:40 STATUS: KATHRYN CHUN #: [id number] TED: 05/15/23 14:[address]: Uday Brooks DEPT: SURGICAL PATHOLOGY RECD BY: Lori Patel ENTERED: 05/16/23 09:05 SP TYPE: MAMOPLASTY OTHR DR: Dr. Ernesto Rodriguez MD Tissues: A - Left breast, NOS B - Left breast, NOS C - LYMPH NODE BIOPSY Procedures: Surgery Specimen Level IV HEADER OPERATION: Left breast biopsy x2 nodule and left lymph node biopsy PRE-OP DIAGNOSIS: Breast nodule TISSUE SUBMITTED: A - Left breast tissue 2 o'clock, 9 cm from nipple, B - Left breast tissue 3 o'clock, 7 cm from nipple, C - Left lymph node MICROSCOPIC DIAGNOSIS A. Left breast tissue, 2 o'clock, 9 cm from nipple, core biopsy: Invasive ductal carcinoma, nuclear grade 2 (0.6 cm in greatest length). See comment. B. Left breast tissue, 3 o'clock, 7 cm from nipple, core biopsy: Invasive ductal carcinoma, nuclear grade 2 (1.0 cm in greatest length). Focal ductal carcinoma in situ. See comment. C. Left lymph node, core biopsy: Fragment of lymph node tissue, negative for metastatic carcinoma. See comment. SJ:rg 05/17/2023 COMMENT A. Immunohistochemistry ([id number]) supports the above diagnosis. ER/WI/Bph8uwx studies are being performed on sections of tumor and the results from this study will be reported separately ([id number]). B. Ductal carcinoma in situ shows cribriform pattern, low to intermediate nuclear grade and comprise about <5% of the total tumor volume. Immunohistochemistry ([id number]) supports the above diagnosis. ER/WI/Kcv5llp studies are being performed on sections of tumor and the results from this study will be reported separately ([id number]). C. Immunohistochemistry ([id number]) supports the above diagnosis. Case has been reviewed in consultation with Dr. Kenoyn who concurs with the above diagnosis. IDC:AM MICROSCOPIC DESCRIPTION Slides are reviewed. GROSS DESCRIPTION A - Received in fixative is one container labeled with the patient's name and designated left breast tissue 2 o'clock, 9 cm from nipple. The specimen consists of one elongated fragment of cruz soft tissue measuring 1.0 cm in length and 0.1 cm in diameter. The specimen is totally submitted in one cassette. B - Received in fixative is one container labeled with the patient's name and designated left breast tissue 3 o'clock, 7 cm from nipple. The specimen consists of one elongated fragment of cruz soft tissue measuring 1.5 cm in length and 0.1 cm in diameter. The specimen is totally submitted in one cassette. C - Received in saline is one container labeled with the patient's name and designated left lymph node tissue. The specimen consists of multiple elongated fragments of cruz-yellow fibroadipose tissue measuring in aggregate 1.0 x 0.3 x 0.1 cm. The specimen is totally submitted in one cassette. / REX:candice 05/16/2023 TC:0 CPT: 41568 x3
== END | disposition home or self-care (01) ==
LOC: LABSPEC 08:17
PROVIDERS: PCP Internal Medicine; Referring Provider Surgery; Visit Provider Surgery
DX: C50.412 Malignant neoplasm of upper-outer quadrant of left female breast (principal); C50.812 Malignant neoplasm of overlapping sites of left female breast
CPT/HCPCS: 88305; 88341; 88342; 88368

== ENCOUNTER → 2023-05-29 | Outpatient (CLI) | payer MEDICARE, OTHER, SELFPAY ==
--- NOTE | 2023-05-29 09:29 | US_ITS ---
STUDY: ULTRASOUND BREAST - LEFT REASON FOR EXAM: Female, 72 years old. Left axillary mass. TECHNIQUE: Axial and longitudinal images of the LEFT breast were performed with a high resolution ultrasound transducer. # OF IMAGES: 41 COMPARISON: Comparison is made with prior mammogram dated May 10, 2023 and prior sonogram of the left breast May 10, 2023. FINDINGS: LEFT Breast: The axillary region of the left breast was examined with ultrasound. Multiple lymph nodes are seen. A 1.1 cm x 0.8 cm x 0.5 cm lymph node was biopsied. A tissue clip marker is seen within it. There is also evidence of a 1.8 signed by 0.5 signed by 0.5 cm benign-appearing lymph node. US/Breast Limited Unilateral IMPRESSION: Axillary lymph nodes as described. A tissue clip marker is seen within the lymph node in the mid inferior aspect of the left axilla. ASSESSMENT CATEGORY: BIRADS Category 2: Benign. A letter regarding these results will be sent to the patient by the facility within 30 days. Electronically Signed: Nahum Kelley MD at 10:04 EDT ,
== END | disposition home or self-care (01) ==
LOC: OPUS 09:26
PROVIDERS: PCP Internal Medicine; Referring Provider Surgery; Visit Provider Surgery
DX: N63.21 Unspecified lump in the left breast, upper outer quadrant (principal)
CPT/HCPCS: 76642

== ENCOUNTER → 2023-05-29 | Outpatient (CLI) | payer MEDICARE, OTHER, SELFPAY ==
--- NOTE | 2023-05-29 10:12 | NM_ITS ---
CLINICAL: 72-year-old female with history of primary breast carcinoma. WHOLE BODY 99m Tc MDP RADIONUCLIDE BONE SCINTIGRAPHY COMPARISON: None available FINDINGS: Following the intravenous administration of 27.0 mCi of 99m Tc MDP, whole body bone images reveal: 1. Increased radiopharmaceutical concentration is demonstrated in the region of the third lumbar vertebra and bilateral region of the seventh anterior ribs. 2. Facilitated uptake is noted in the bilateral wrist articulations, the acromioclavicular compartment of the right shoulder, the glenohumeral compartments of both shoulders, the hands bilaterally, the sacrum posteriorly. 3. The remaining skeletal structures are scintigraphically unremarkable with normal-appearing renal images and urinary bladder activity identified. Enhanced tracer distribution is defined in the left zygoma and interorbital aspect of the calvarium most consistent with periostitis. Facilitated uptake is noted in the tibial and femoral components of the presumably asymptomatic bilateral knee arthroplasties and trochanteric and distal femoral component of the left hip prosthesis most consistent with normal postsurgical change. NM/Bone Scan Whole Body IMPRESSION: 1. The increase in radiopharmaceutical concentration identified in the third lumbar vertebra and bilateral anterior seventh ribs is commensurate with trauma-fracture. 2. 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 3. There is no definitive typical scintigraphic evidence of multifocal osseous metastatic disease. Electronically Signed: Ashwin Mi DO at 22:11 EDT ,
== END | disposition home or self-care (01) ==
LOC: NM 09:28
PROVIDERS: PCP Internal Medicine; Visit Provider Internal Medicine Hematology & Oncology
DX: C50.912 Malignant neoplasm of unspecified site of left female breast (principal); N63.21 Unspecified lump in the left breast, upper outer quadrant
CPT/HCPCS: 76642; 78306; A9503

== ENCOUNTER 2023-05-31 09:30 | Outpatient (RCR) | payer MEDICARE, OTHER, SELFPAY ==
[2023-05-23 09:22] VITALS: BP 127/65; PULSE 64; RESP 16; TEMP 36.2
--- NOTE | 2023-05-23 10:49 | PCM.WC.PN ---
History of Present Illness Date of Service: 05/23/23 Chief Complaint: Follow-up on her right lower leg lateral area wound nonhealing since at least November. History of Wound: 72-year-old white female in [place] where she is living during the winter. She had a growth removed from her right lateral lower leg. She is still not sure if it is cancer or not. After finally getting through to the dermatology she found that they never sent a biopsy off. She saw her own doctor up here and she was referred to us from her and put on cephalexin. Recently she was taken off her Lasix and has terrible edema of her lower extremities and abdomen. Patient states she has gained 9 pounds Patient had been referred to dermatology and has returned after they did Mohs surgery on her right lateral lower leg. They state they got all the cancer out. We will reapply for EpiFix to restart her. We will also also refer to Dr. Galaviz for vascular problems she is having in her right lower leg. Her biggest complaint is that she is swelling a lot in her lower extremities. Worried about a blood clot Now she has breast cancer and is being seen by oncology at [facility] for that also. Progress of Wound: Today's visit was the first time seen after Mohs surgery of the right lower leg. Its bigger deeper but looks good there is beefy new tissue growing in the base of the wound. She also has 2 new areas on the right lateral ankle and the medial ankle they look venous with depth and irregular perimeter of the wound. We will reapply for EpiFix for the right lateral lower leg and use Fibracol to the other wounds on her ankles lateral and medial. Subjective Subjective Patient can remember if she did see Dr. Galaviz but we did refer her before to him we will reapply get her and she needs those veins open on her right leg for the swelling and the pain that she is complaining about she needs circulation better. She was just diagnosed with breast cancer and is going to see the oncologist tomorrow. Therefore I think she is feeling very overwhelmed with all the problems that she is having. 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 Plus her keeps falling and is having his own issues Objective Data Objective Data Her right lateral lower leg Mohs surgery looks good we will continue ordering epi fixes and in the meantime she can use Fibracol till we get the EpiFix preapproved. We can also use the Fibracol on the other wounds to make it simple for her. Cultures were obtained from right lower leg new ulcers. Vital Signs: Vital Signs Temp Pulse Resp BP O2 Del Method 97.2 F L 64 16 127/65 H Room Air 05/23/23 09:22 05/23/23 09:22 05/23/23 09:22 05/23/23 09:22 05/23/23 09:22 Oxygen Delivery Method Room Air Lab / Micro Data Attestation: I reviewed the patient's lab results. Physical Exam Const oriented x3 General Appearance: cooperative Exam Limitations: no limitations HEENT normocephalic Head and Scalp: normal to inspection Face and Sinus: normal facial exam Nose: external nose normal General Ear: hearing grossly impaired External Ear: external ears normal Mouth: oral and palatal mucosa normal Eyes PERRL General Eye: normal appearance of both eyes Neck full ROM General: normal visual inspection Resp normal respiratory effort Effort and Inspection: able to speak in complete sentences Auscultation: clear to auscultation bilaterally Cardio regular rate and regular rhythm Palpation: normal PMI Rate: regular rate Rhythm: regular rhythm GI Auscultation: normoactive bowel sounds Palpation: soft and no hepatosplenomegaly external exam normal Back/Spine Cervical Spine: cervical ROM normal Thoracic Spine / Upper Back: normal to inspection Lumbar Spine / Lower Back: normal to inspection Extremity normal to inspection General Extremity: normal exam except as noted Skin no rashes or lesions noted Neuro oriented x3 Psych Appearance: grossly normal Speech: normal speech Thought Content: normal thought content Judgement: judgement good Debridement Note Debridement Note Wound debrided: Right lateral lower leg cancer removal Laterality: Right Type of Debridement: Excisional debridement Anesthesia Used: 5% Lidocaine Gel Depth: Down to and including healthy tissue and in the subcutaneous layer Percentage of wound debrided: 100 Instrument Used: 5mm curette Tissue Removed: Fibrin Severity: Fat Layer Exposed Amount of bleeding with debridement: Mild Bleeding Controlled with: Compression and gauze Patient tolerated procedure: Patient tolerated procedure well Post-Debridement Measurements and Additional Note: Post-Debridement Measurements/Treatment HERMILA - Nurse 1 - General Ulcer Assessment Start: 05/23/23 09:21 Freq: Status: Active Protocol: SAHIL Activity Type Activity Date Activity User E-sign Co-sign Detail Recorded Client Recorded Date Recorded By Document 05/23/23 09:22 MW Desktop 05/23/23 09:35 MW 05/23/23 09:22 WC - Today's Visit Information Type of service 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-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 ) Arrival Mode Ambulatory Transfer Assistance None Accompanied by self Patient Identification Verified (Name & Yes ) Patient Requires Transmission-Based No Precautions Safety Precautions NA Vital Signs Temperature (97.8 F-99.1 F) 97.2 F L Temperature Source Temporal Pulse Rate (60-100) 64 Pulse Location Monitor Respiratory Rate (12-18) 16 Respiratory rate source Observation Oxygen Delivery Method Room Air Blood Pressure (90/60-120/80) 127/65 H Blood Pressure Mean (mm Hg) 85 Source Monitor Position Sitting Blood Pressure Location Right Forearm History Since Last Visit- (Skip if this is Patient's initial visit) Have you changed medications since your No last visit? Any new allergies or adverse reactions No Had a fall/change in ADL's that may No increase risk of falls Signs or symptoms of abuse and/or No neglect since last visit Have you been in the hospital since your No last visit? Has dressing in place as prescribed Yes Has compression in place as prescribed No Has offloadiing in place as prescribed N/A Experienced any changes in pain level or No management Left Footwear Regular Shoe Right Footwear Regular Shoe Pain Scale: 0-10 Numeric Is Patient Pain Free? Yes - Nurse 1 - General Ulcer Measurement Start: 05/23/23 09:21 Freq: Status: Active Protocol: Activity Type Activity Date Activity User E-sign Co-sign Detail Recorded Client Recorded Date Recorded By Document 05/23/23 09:22 MW Desktop 05/23/23 09:35 MW 05/23/23 09:22 Wound Center Nurse 1 #4 right medial LE -Combined with other wound No -Current Size (cm) - Length 0.1 -Current Size (cm) - Width 0.1 -Current Size (cm) - Depth 0.1 -Total Square Cm 0.01 -Photo Taken No -Epithelialization None Present -Tunneling No -Undermining/Tunneling No -Circular Undermining No -Exudate Amt Medium -Wound Margin Flat & Intact -Granulation Amt None Present (0 %) -Granulation Quality N/A -Slough/Fibrin Yes -Necrosis Amt Large (67-100%) -Necrotic Tissue Type Adherent Slough -Structure Exposed N/A -Texture (Elif-wound Skin Appearance) Assessed, Localized Edema -Moisture (Elif-wound Skin Appearance) Assessed,Dry/ Scaly -Color (Elif-wound Skin Appearance) Assessed, Hemosiderin Staining -Temperature (Elif-wound Skin No Abnormality Appearance) (Pt Warm) -Tenderness on Palpation (Elif-wound No Skin Appearance) -Ulcer Cleansing Wound Cleanser -Foul Odor after Cleansing No -Anesthetic Used 5% Lidocaine Gel #3 right lateral ankle -Combined with other wound No -Current Size (cm) - Length 1.5 -Current Size (cm) - Width 1.3 -Current Size (cm) - Depth 0.2 -Total Square Cm 1.95 -Date of Last Picture (Recall this 05/23/23 field) -Photo Taken Yes -Epithelialization None Present -Tunneling No -Undermining/Tunneling No -Circular Undermining No -Exudate Amt Medium -Wound Margin Flat & Intact -Granulation Amt None Present (0 %) -Granulation Quality N/A -Slough/Fibrin Yes -Necrosis Amt Large (67-100%) -Necrotic Tissue Type Adherent Slough -Structure Exposed N/A -Texture (Elif-wound Skin Appearance) Assessed, Localized Edema -Moisture (Elif-wound Skin Appearance) Assessed,Dry/ Scaly -Color (Elif-wound Skin Appearance) Assessed, Hemosiderin Staining -Temperature (Elif-wound Skin No Abnormality Appearance) (Pt Warm) -Tenderness on Palpation (Elif-wound No Skin Appearance) -Ulcer Cleansing Rinsed/ Irrigated with Saline -Foul Odor after Cleansing No -Anesthetic Used 5% Lidocaine Gel #1- R LAT LE (P/O BASAL CELL CA) -Combined with other wound No -Current Size (cm) - Length 3.9 -Current Size (cm) - Width 3.7 -Current Size (cm) - Depth 0.2 -Total Square Cm 14.43 -Photo Taken No -Tunneling No -Undermining/Tunneling No -Circular Undermining No -Exudate Amt Medium -Wound Margin Flat & Intact -Granulation Amt Medium (34-66%) -Granulation Quality Curran -Slough/Fibrin Yes -Necrosis Amt Small (1-33%) -Structure Exposed N/A -Texture (Elif-wound Skin Appearance) Assessed, Localized Edema -Moisture (Elif-wound Skin Appearance) Assessed -Color (Elif-wound Skin Appearance) Assessed, Hemosiderin Staining -Temperature (Elif-wound Skin No Abnormality Appearance) (Pt Warm) -Tenderness on Palpation (Elif-wound No Skin Appearance) -Ulcer Cleansing Soap and Water -Foul Odor after Cleansing No -Anesthetic Used 5% Lidocaine Gel Lower Limb Edema Present Yes Right Calf (cm) 35.9 Right Ankle (cm) 23.7 WC - Nurse 2 - General Ulcer CM Notes Start: 05/23/23 09:21 Freq: Status: Active Protocol: Activity Type Activity Date Activity User E-sign Co-sign Detail Recorded Client Recorded Date Recorded By Document 05/23/23 09:38 MW Desktop 05/23/23 09:51 MW 05/23/23 09:38 Wound Center Nurse 2 #4 right medial LE -Time 09:38 -Correct Patient Yes -Correct Side, Site, Position Yes -Correct Procedure Yes -Procedure Performed Yes -Type of Procedure Debridement -Clinical Debridement Subcutaneous -Tissue Removed Subcutaneous -Post Debridement (cm) - Length 0.4 -Post Debridement (cm) - Width 0.5 -Post Debridement (cm) - Depth 0.2 -Total Square (Post) (cm) 0.20 -Area of Debridement (cm) - Length 0.4 -Area of Debridement (cm) - Width 0.5 -Total Square (Area) (cm) 0.20 -Tunneling No -Undermining/Tunneling No -Circular Undermining No -Wound/Ulcer Outcome Not Healed -Ulcer Cleansing Rinsed/ Irrigated with Saline -Foul Odor after Cleansing No -Bioengineered Tissue No -Bleeding Controlled with Pressure -Treatment Response Procedure Tolerated Well -Offloading No -Debridement - Subq, 1st 20sq cm No #3 right lateral ankle -Time 09:38 -Correct Patient Yes -Correct Side, Site, Position Yes -Correct Procedure Yes -Procedure Performed Yes -Type of Procedure Debridement -Clinical Debridement Subcutaneous -Tissue Removed Subcutaneous -Post Debridement (cm) - Length 1.8 -Post Debridement (cm) - Width 1.5 -Post Debridement (cm) - Depth 0.2 -Total Square (Post) (cm) 2.70 -Area of Debridement (cm) - Length 1.8 -Area of Debridement (cm) - Width 1.5 -Total Square (Area) (cm) 2.70 -Tunneling No -Undermining/Tunneling No -Circular Undermining No -Wound/Ulcer Outcome Not Healed -Ulcer Cleansing Rinsed/ Irrigated with Saline -Foul Odor after Cleansing No -Bioengineered Tissue No -Bleeding Controlled with Pressure -Treatment Response Procedure Tolerated Well -Offloading No -Debridement - Subq, 1st 20sq cm No #1- R LAT LE (P/O BASAL CELL CA) -Time 09:39 -Correct Patient Yes -Correct Side, Site, Position Yes -Correct Procedure Yes -Procedure Performed Yes -Type of Procedure Debridement -Clinical Debridement Subcutaneous -Tissue Removed Subcutaneous -Post Debridement (cm) - Length 4.0 -Post Debridement (cm) - Width 3.8 -Post Debridement (cm) - Depth 0.5 -Total Square (Post) (cm) 15.20 -Area of Debridement (cm) - Length 4.0 -Area of Debridement (cm) - Width 3.8 -Total Square (Area) (cm) 15.20 -Tunneling No -Undermining/Tunneling No -Circular Undermining No -Wound/Ulcer Outcome Not Healed -Ulcer Cleansing Rinsed/ Irrigated with Saline -Foul Odor after Cleansing No -Bioengineered Tissue No -Bleeding Controlled with Pressure -Treatment Response Procedure Tolerated Well -Offloading No -Debridement - Subq, 1st 20sq cm Yes Pain Scale: 0-10 Numeric Is Patient Pain Free? Yes WC - Nurse 3 - General Ulcer D/C NN Start: 05/23/23 09:21 Freq: Status: Active Protocol: Activity Type Activity Date Activity User E-sign Co-sign Detail Recorded Client Recorded Date Recorded By Document 05/23/23 10:16 [facility] Desktop 05/23/23 10:18 [facility] 05/23/23 10:16 Wound Care Center Nurse 3 #4 right medial LE -Ulcer Cleansing Rinsed/ Irrigated with Saline -Foul Odor after Cleansing No -Primary Dressing Applied Fibracol Plus 4x4,Mepilex Border, NonAdherent Contact Layer -Fibracol Plus 4x4 2 -Mepilex Border 3 #3 right lateral ankle -Ulcer Cleansing Rinsed/ Irrigated with Saline -Foul Odor after Cleansing No -Primary Dressing Applied Fibracol Plus 4x4,Mepilex Border, NonAdherent Contact Layer -Fibracol Plus 4x4 0 -Mepilex Border 0 #1- R LAT LE (P/O BASAL CELL CA) -Ulcer Cleansing Rinsed/ Irrigated with Saline -Primary Dressing Applied Fibracol Plus 4x4,Mepilex Border, NonAdherent Contact Layer -Fibracol Plus 4x4 0 -Mepilex Border 0 Treatment Response Procedure Tolerated Well Pain Scale: 0-10 Numeric Is Patient Pain Free? Yes WC - Visit Discharge Discharge Condition Stable Ambulatory Status Ambulatory,Cane Transportation Private Auto Additional Wound Wound debrided: Right lateral ankle Wound Grade/Stage: Venous ulcer Type of Debridement: Excisional debridement Anesthesia Used: 5% Lidocaine Gel Depth: Down to and including healthy tissue and in the subcutaneous layer Percentage of wound debrided: 100 Instrument Used: 5mm curette Tissue Removed: Fibrin Severity: Limited To Skin Breakdown Amount of bleeding with debridement: Mild Bleeding Controlled with: Compression and gauze Patient tolerated procedure: Patient tolerated procedure well Additional Wound Wound debrided: Right medial lower extremity venous ulcer Laterality: Right Type of Debridement: Excisional debridement Anesthesia Used: 5% Lidocaine Gel Depth: in the subcutaneous layer Percentage of wound debrided: 100 Instrument Used: 5mm curette Tissue Removed: Fibrin Severity: Limited To Skin Breakdown Amount of bleeding with debridement: Mild Bleeding Controlled with: Compression and gauze Patient tolerated procedure: Patient tolerated procedure well Assessment/Plan Assessment/Plan (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: CODE(S): C44.721 - Squamous cell carcinoma of skin of unspecified lower limb, including hip QUALIFIERS: Laterality: right Qualified Code(s): C44.722 - Squamous cell carcinoma of skin of right lower limb, including hip PLAN: Reapply for EpiFix Fibracol to wound base cover with Adaptic gauze and tape (2) Venous ulcer of ankle: CODE(S): I83.003 - Varicose veins of unspecified lower extremity with ulcer of ankle; L97.309 - Non-pressure chronic ulcer of unspecified ankle with unspecified severity QUALIFIERS: Varicose vein presence: with varicose veins Laterality: right Non-pressure ulcer stage: limited to breakdown of skin Qualified Code(s): I83.013 - Varicose veins of right lower extremity with ulcer of ankle; L97.311 - Non-pressure chronic ulcer of right ankle limited to breakdown of skin PLAN: Refer to Dr. Galaviz for her right lower leg edema and abnormal venous ultrasounds. Obvious occlusions to her GSV's and she has discoloration to the leg with swelling and pain. (3) Non-pressure ulcer of right lower extremity: CODE(S): L97.919 - Non-pressure chronic ulcer of unspecified part of right lower leg with unspecified severity QUALIFIERS: Non-pressure ulcer stage: with fat layer exposed Qualified Code(s): L97.912 - Non-pressure chronic ulcer of unspecified part of right lower leg with fat layer exposed PLAN: Wash the right lateral and medial wounds with an antibacterial soap and water pat dry apply Fibracol moistened cover with gauze and dressings daily. Wear a double layer Tubigrip Follow-up in 1 week We will call with the culture results
[2023-05-31 10:01] VITALS: BP 125/50; PULSE 63; RESP 18; TEMP 35.9
--- NOTE | 2023-05-31 13:16 | PCM.WC.PN ---
History of Present Illness Date of Service: 05/31/23 Chief Complaint: Follow-up on her right lower leg lateral area wound nonhealing since at least November. History of Wound: 72-year-old white female in [place] where she is living during the winter. She had a growth removed from her right lateral lower leg. She is still not sure if it is cancer or not. After finally getting through to the dermatology she found that they never sent a biopsy off. She saw her own doctor up here and she was referred to us from her and put on cephalexin. Recently she was taken off her Lasix and has terrible edema of her lower extremities and abdomen. Patient states she has gained 9 pounds Patient had been referred to dermatology and has returned after they did Mohs surgery on her right lateral lower leg. They state they got all the cancer out. We will reapply for EpiFix to restart her. We will also also refer to Dr. Galaviz for vascular problems she is having in her right lower leg. Her biggest complaint is that she is swelling a lot in her lower extremities. Worried about a blood clot Now she has breast cancer and is being seen by oncology at [place] for that also. Progress of Wound: Today we got approval for EpiFix and will use #2 EpiFix to the right lateral lower leg. Had been using Fibracol which kept it clean. Cultures were positive patient has started on her antibiotic for the bacteria but no anaerobes. Patient is now concerned about the right lateral ankle wound that it could be cancer also. I am treating it as a venous ulcer but I told her she could go back to dermatology have them look at it and biopsy it. Can continue using Fibracol to the right lateral lower leg . The right medial ankle is resolved and healed Subjective Subjective Patient is pleased with the measurements are smaller and healing of the right medial wound Patient was just diagnosed with breast cancer and is worried that she is cancer in the skin from the breast. Dr. Brooks states that he is doing a mastectomy and that she will not need chemo or radiation. Objective Data Objective Data Vital Signs: Vital Signs Temp Pulse Resp BP O2 Del Method 96.7 F L 63 18 125/50 H Room Air 05/31/23 10:01 05/31/23 10:01 05/31/23 10:05/31/23 10:01 09/19/23 09:22 Oxygen Delivery Method Room Air Lab / Micro Data Attestation: I reviewed the patient's lab results. Micro: Microbiology 05/23/23 09:45 Wound - Ankle Gram Stain - Final 05/23/23 09:45 Wound - Ankle Wound Culture - Final Staphylococcus aureus Staphylococcus epidermidis 05/23/23 09:45 Wound - Ankle Anaerobic Culture - Final No anaerobic bacteria isolated. Physical Exam Const oriented x3 General Appearance: cooperative Exam Limitations: no limitations HEENT normocephalic Head and Scalp: normal to inspection Face and Sinus: normal facial exam Nose: external nose normal General Ear: hearing grossly impaired External Ear: external ears normal Mouth: oral and palatal mucosa normal Eyes PERRL General Eye: normal appearance of both eyes Neck full ROM General: normal visual inspection Resp normal respiratory effort Effort and Inspection: able to speak in complete sentences Auscultation: clear to auscultation bilaterally Cardio regular rate and regular rhythm Palpation: normal PMI Rate: regular rate Rhythm: regular rhythm GI Auscultation: normoactive bowel sounds Palpation: soft and no hepatosplenomegaly external exam normal Back/Spine Cervical Spine: cervical ROM normal Thoracic Spine / Upper Back: normal to inspection Lumbar Spine / Lower Back: normal to inspection Extremity normal to inspection General Extremity: normal exam except as noted Skin no rashes or lesions noted Neuro oriented x3 Psych Appearance: grossly normal Speech: normal speech Thought Content: normal thought content Judgement: judgement good Debridement Note Debridement Note Wound debrided: Right lateral lower leg cancer ulcer that is cancer free now Type of Debridement: Excisional debridement Anesthesia Used: 5% Lidocaine Gel Depth: Down to and including healthy tissue Percentage of wound debrided: 100 Instrument Used: 5mm curette Tissue Removed: Slough and fibrin Severity: Fat Layer Exposed Amount of bleeding with debridement: Mild Bleeding Controlled with: Compression and gauze Patient tolerated procedure: Patient tolerated procedure well Post-Debridement Measurements and Additional Note: Post-Debridement Measurements/Treatment WC - Nurse 1 - General Ulcer Assessment Start: 05/23/23 09:21 Freq: Status: Active Protocol: SAHIL Activity Type Activity Date Activity User E-sign Co-sign Detail Recorded Client Recorded Date Recorded By Document 05/23/23 09:22 MW Desktop 05/23/23 09:35 MW Document 05/31/23 10:01 RB Desktop 05/31/23 10:15 RB 05/23/23 05/31/23 09:22 10:01 - Today's Visit Information Type of service Follow-up Visit 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 ) ) Arrival Mode Ambulatory Ambulatory Transfer Assistance None None Accompanied by self Patient Identification Verified (Name & Yes Yes ) Patient Requires Transmission-Based No No Precautions Safety Precautions NA Vital Signs Temperature (97.8 F-99.1 F) 97.2 F L 96.7 F L Temperature Source Temporal Temporal Pulse Rate (60-100) 64 63 Pulse Location Monitor Monitor Respiratory Rate (12-18) 16 18 Respiratory rate source Observation Observation Oxygen Delivery Method Room Air Blood Pressure (90/60-120/80) 127/65 H 125/50 H Blood Pressure Mean (mm Hg) 85 75 Source Monitor Monitor Position Sitting Semi-Fowlers Blood Pressure Location Right Forearm Left Arm History Since Last Visit- (Skip if this is Patient's initial visit) Have you changed medications since your No No last visit? Any new allergies or adverse reactions No No Had a fall/change in ADL's that may No No increase risk of falls Signs or symptoms of abuse and/or No No neglect since last visit Have you been in the hospital since your No No last visit? Has dressing in place as prescribed Yes Yes Has compression in place as prescribed No No Has offloadiing in place as prescribed N/A No Experienced any changes in pain level or No No management Left Footwear Regular Shoe Right Footwear Regular Shoe Pain Scale: 0-10 Numeric Is Patient Pain Free? Yes Yes - Nurse 1 - General Ulcer Measurement Start: 05/23/23 09:21 Freq: Status: Active Protocol: Activity Type Activity Date Activity User E-sign Co-sign Detail Recorded Client Recorded Date Recorded By Document 05/23/23 09:22 Desktop 05/23/23 09:35 MW Document 05/31/23 10:01 RB Desktop 05/31/23 10:15 RB 05/23/23 05/31/23 09:22 10:01 Wound Center Nurse 1 #4 right medial LE -Combined with other wound No No -Current Size (cm) - Length 0.1 0.1 -Current Size (cm) - Width 0.1 0.1 -Current Size (cm) - Depth 0.1 0.1 -Total Square Cm 0.01 0.01 -Photo Taken No -Epithelialization None Present -Tunneling No No -Undermining/Tunneling No No -Circular Undermining No No -Exudate Amt Medium Medium -Exudate Type Serosanguineous -Wound Margin Flat & Intact Distinct, Outline Attached -Granulation Amt None Present (0 Medium (34-66%) %) -Granulation Quality N/A [place] -Slough/Fibrin Yes Yes -Necrosis Amt Large (67-100%) Medium (34-66%) -Necrotic Tissue Type Adherent Slough Adherent Slough -Structure Exposed N/A N/A -Texture (Elif-wound Skin Appearance) Assessed, Assessed Localized Edema -Moisture (Elif-wound Skin Appearance) Assessed,Dry/ Assessed Scaly -Color (Elif-wound Skin Appearance) Assessed, Assessed Hemosiderin Staining -Temperature (Elif-wound Skin No Abnormality No Abnormality Appearance) (Pt Warm) (Pt Warm) -Tenderness on Palpation (Elif-wound No No Skin Appearance) -Ulcer Cleansing Wound Cleanser Wound Cleanser -Foul Odor after Cleansing No No -Anesthetic Used 5% Lidocaine 5% Lidocaine Gel Gel #3 right lateral ankle -Combined with other wound No No -Current Size (cm) - Length 1.5 1.5 -Current Size (cm) - Width 1.3 1.4 -Current Size (cm) - Depth 0.2 0.2 -Total Square Cm 1.95 2.10 -Date of Last Picture (Recall this 05/23/23 field) -Photo Taken Yes -Epithelialization None Present -Tunneling No No -Undermining/Tunneling No No -Circular Undermining No No -Exudate Amt Medium Medium -Exudate Type Serosanguineous -Wound Margin Flat & Intact Distinct, Outline Attached -Granulation Amt None Present (0 Medium (34-66%) %) -Granulation Quality N/A [place] -Slough/Fibrin Yes Yes -Necrosis Amt Large (67-100%) Medium (34-66%) -Necrotic Tissue Type Adherent Slough Adherent Slough -Structure Exposed N/A N/A -Texture (Elif-wound Skin Appearance) Assessed, Assessed Localized Edema -Moisture (Elif-wound Skin Appearance) Assessed,Dry/ Assessed Scaly -Color (Elif-wound Skin Appearance) Assessed, Assessed Hemosiderin Staining -Temperature (Elif-wound Skin No Abnormality No Abnormality Appearance) (Pt Warm) (Pt Warm) -Tenderness on Palpation (Elif-wound No No Skin Appearance) -Ulcer Cleansing Rinsed/ Wound Cleanser Irrigated with Saline -Foul Odor after Cleansing No No -Anesthetic Used 5% Lidocaine 5% Lidocaine Gel Gel #1- R LAT LE (P/O BASAL CELL CA) -Combined with other wound No No -Current Size (cm) - Length 3.9 4 -Current Size (cm) - Width 3.7 4 -Current Size (cm) - Depth 0.2 0.5 -Total Square Cm 14.43 16 -Photo Taken No -Tunneling No No -Undermining/Tunneling No No -Circular Undermining No No -Exudate Amt Medium Large -Exudate Type Serosanguineous -Wound Margin Flat & Intact Thickened & Rolled Under -Granulation Amt Medium (34-66%) Medium (34-66%) -Granulation Quality [place] -Slough/Fibrin Yes Yes -Necrosis Amt Small (1-33%) Medium (34-66%) -Necrotic Tissue Type Adherent Slough -Structure Exposed N/A N/A -Texture (Elif-wound Skin Appearance) Assessed, Assessed Localized Edema -Moisture (Elif-wound Skin Appearance) Assessed Assessed -Color (Elif-wound Skin Appearance) Assessed, Assessed Hemosiderin Staining -Temperature (Elif-wound Skin No Abnormality No Abnormality Appearance) (Pt Warm) (Pt Warm) -Tenderness on Palpation (Elif-wound No No Skin Appearance) -Ulcer Cleansing Soap and Water Wound Cleanser -Foul Odor after Cleansing No No -Anesthetic Used 5% Lidocaine 4% Lidocaine Gel Solution,5% Lidocaine Gel Lower Limb Edema Present Yes Yes Right Calf (cm) 35.9 39 Right Ankle (cm) 23.7 24.5 WC - Nurse 2 - General Ulcer CM Notes Start: 05/23/23 09:21 Freq: Status: Active Protocol: Activity Type Activity Date Activity User E-sign Co-sign Detail Recorded Client Recorded Date Recorded By Document 05/23/23 09:38 MW Desktop 05/23/23 09:51 MW Document 05/31/23 10:21 GM Desktop 05/31/23 10:36 GM 05/23/23 05/31/23 09:38 10:21 Wound Center Nurse 2 #4 right medial LE -Time 09:38 10:21 -Correct Patient Yes Yes -Correct Side, Site, Position Yes Yes -Correct Procedure Yes Yes -Procedure Performed Yes No -Type of Procedure Debridement -Clinical Debridement Subcutaneous -Tissue Removed Subcutaneous -Post Debridement (cm) - Length 0.4 0 -Post Debridement (cm) - Width 0.5 0 -Post Debridement (cm) - Depth 0.2 0 -Total Square (Post) (cm) 0.20 0 -Area of Debridement (cm) - Length 0.4 -Area of Debridement (cm) - Width 0.5 -Total Square (Area) (cm) 0.20 -Tunneling No -Undermining/Tunneling No -Circular Undermining No -Wound/Ulcer Outcome Not Healed Healed- Epithelialized -Ulcer Cleansing Rinsed/ Irrigated with Saline -Foul Odor after Cleansing No -Bioengineered Tissue No -Bleeding Controlled with Pressure -Treatment Response Procedure Tolerated Well -Offloading No -Debridement - Subq, 20sq cm No #3 right lateral ankle -Time 09:38 10:22 -Correct Patient Yes Yes -Correct Side, Site, Position Yes Yes -Correct Procedure Yes Yes -Procedure Performed Yes Yes -Type of Procedure Debridement Debridement -Clinical Debridement Subcutaneous Subcutaneous -Tissue Removed Subcutaneous Subcutaneous -Post Debridement (cm) - Length 1.8 1.7 -Post Debridement (cm) - Width 1.5 1.4 -Post Debridement (cm) - Depth 0.2 0.2 -Total Square (Post) (cm) 2.70 2.38 -Area of Debridement (cm) - Length 1.8 1.7 -Area of Debridement (cm) - Width 1.5 1.4 -Total Square (Area) (cm) 2.70 2.38 -Tunneling No No -Undermining/Tunneling No No -Circular Undermining No No -Wound/Ulcer Outcome Not Healed Not Healed -Ulcer Cleansing Rinsed/ Rinsed/ Irrigated with Irrigated with Saline Saline -Foul Odor after Cleansing No No -Bioengineered Tissue No No -Bleeding Controlled with Pressure Pressure -Treatment Response Procedure Procedure Tolerated Well Tolerated Well -Offloading No -Debridement - Subq, 1st 20sq cm No Yes #1- R LAT LE (P/O BASAL CELL CA) -Time 09:39 10:24 -Correct Patient Yes Yes -Correct Side, Site, Position Yes Yes -Correct Procedure Yes Yes -Procedure Performed Yes Yes -Type of Procedure Debridement Debridement -Clinical Debridement Subcutaneous Subcutaneous -Tissue Removed Subcutaneous Subcutaneous -Post Debridement (cm) - Length 4.0 3.8 -Post Debridement (cm) - Width 3.8 4.0 -Post Debridement (cm) - Depth 0.5 0.4 -Total Square (Post) (cm) 15.20 15.20 -Area of Debridement (cm) - Length 4.0 3.8 -Area of Debridement (cm) - Width 3.8 4 -Total Square (Area) (cm) 15.20 15.2 -Tunneling No No -Undermining/Tunneling No No -Circular Undermining No No -Wound/Ulcer Outcome Not Healed Not Healed -Ulcer Cleansing Rinsed/ Rinsed/ Irrigated with Irrigated with Saline Saline -Foul Odor after Cleansing No No -Bioengineered Tissue No Yes -Type of Bioengineered Tissue Epifix Mesh -Expiration Date 03/04/28 -Product Lot Number [id number] -Percent Used 100 -Lot number of Saline Used [id number] -Bleeding Controlled with Pressure Pressure -Treatment Response Procedure Tolerated Well -Offloading No -Debridement - Subq, 1st 20sq cm Yes No -Apply Skin Sub - 1st 25 sq cm - Legs 1 -Epifix Mesh (per sq cm) 11 Pain Scale: 0-10 Numeric Is Patient Pain Free? Yes Yes - Nurse 3 - General Ulcer D/C NN Start: 05/23/23 09:21 Freq: Status: Active Protocol: Activity Type Activity Date Activity User E-sign Co-sign Detail Recorded Client Recorded Date Recorded By Document 05/23/23 10:16 [facility] Desktop 05/23/23 10:18 [facility] Document 05/31/23 10:45 Desktop 05/31/23 10:48 05/23/23 05/31/23 10:16 10:45 Wound Care Center Nurse 3 #4 right medial LE -Ulcer Cleansing Rinsed/ Irrigated with Saline -Foul Odor after Cleansing No -Primary Dressing Applied Fibracol Plus 4x4,Mepilex Border, NonAdherent Contact Layer -Fibracol Plus 4x4 2 -Mepilex Border 3 #3 right lateral ankle -Ulcer Cleansing Rinsed/ Not Cleansed Irrigated with Saline -Foul Odor after Cleansing No -Primary Dressing Applied Fibracol Plus Aquacel Extra, 4x4,Mepilex Mepilex Border Border, NonAdherent Contact Layer -Aquacel Extra 1 -Fibracol Plus 4x4 0 -Mepilex Border 0 1 #1- R LAT LE (P/O BASAL CELL CA) -Ulcer Cleansing Rinsed/ Not Cleansed Irrigated with Saline -Foul Odor after Cleansing No -Primary Dressing Applied Fibracol Plus Mepilex Border 4x4,Mepilex Border, NonAdherent Contact Layer -Other Dressing aquacel extra -Fibracol Plus 4x4 0 -Mepilex Border 0 1 Treatment Response Procedure Tolerated Well Pain Scale: 0-10 Numeric Is Patient Pain Free? Yes Yes Teaching: Wound Center Discharge Instructions -Person Taught Patient -Teaching Method Discussion -Response to teaching Verbalize understanding Compression Wraps & Stockings -Person Taught Patient -Teaching Method Discussion -Response to teaching Verbalize understanding Dressing Your Wound -Person Taught Patient -Teaching Method Discussion -Response to teaching Verbalize understanding WC - Visit Discharge Discharge Condition Stable Ambulatory Status Ambulatory,Cane Transportation Private Auto Additional Wound Wound debrided: Venous ulcer Laterality: Right Type of Debridement: Excisional debridement Anesthesia Used: 5% Lidocaine Gel Depth: Down to and including healthy tissue and in the subcutaneous layer Percentage of wound debrided: 100 Instrument Used: 5mm curette Severity: Fat Layer Exposed Amount of bleeding with debridement: Mild Bleeding Controlled with: Compression and gauze Patient tolerated procedure: Patient tolerated procedure well Assessment/Plan Assessment/Plan (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: CODE(S): C44.721 - Squamous cell carcinoma of skin of unspecified lower limb, including hip QUALIFIERS: Laterality: right Qualified Code(s): C44.722 - Squamous cell carcinoma of skin of right lower limb, including hip PLAN: EpiFix #2 applied Covered with wound veil and Steri-Strips patient is to leave alone and not take off or shower on that leg (2) Venous ulcer of ankle: CODE(S): I83.003 - Varicose veins of unspecified lower extremity with ulcer of ankle; L97.309 - Non-pressure chronic ulcer of unspecified ankle with unspecified severity QUALIFIERS: Varicose vein presence: with varicose veins Laterality: right Non-pressure ulcer stage: limited to breakdown of skin Qualified Code(s): I83.013 - Varicose veins of right lower extremity with ulcer of ankle; L97.311 - Non-pressure chronic ulcer of right ankle limited to breakdown of skin PLAN: Refer to Dr. Galaviz for her right lower leg edema and abnormal venous ultrasounds. Obvious occlusions to her GSV's and she has discoloration to the leg with swelling and pain. (3) Non-pressure ulcer of right lower extremity: CODE(S): L97.919 - Non-pressure chronic ulcer of unspecified part of right lower leg with unspecified severity QUALIFIERS: Non-pressure ulcer stage: with fat layer exposed Qualified Code(s): L97.912 - Non-pressure chronic ulcer of unspecified part of right lower leg with fat layer exposed PLAN: Wash the right lateral ankle wounds with an antibacterial soap and water pat dry apply Fibracol moistened cover with gauze and dressings daily. Wear a double layer Tubigrip Follow-up in 1 week Continue antibiotic therapy for till done
== END 2023-06-03 23:59 | disposition home or self-care (01) ==
LOC: WC 09:30
PROVIDERS: PCP Internal Medicine; Referring Provider Nurse Practitioner; Visit Provider Nurse Practitioner
DX: I83.013 Varicose veins of right lower extremity with ulcer of ankle (principal); L97.311 Non-pressure chronic ulcer of right ankle limited to breakdown of skin; L97.811 Non-pressure chronic ulcer of other part of right lower leg limited to breakdown of skin; I83.018 Varicose veins of right lower extremity with ulcer other part of lower leg; C50.919 Malignant neoplasm of unspecified site of unspecified female breast; C44.722 Squamous cell carcinoma of skin of right lower limb, including hip; R60.0 Localized edema
CPT/HCPCS: 11042; 15271; 87070; 87075; 87077; 87186; 87205; Q4186

== ENCOUNTER → 2023-05-31 | Outpatient (CLI) | payer MEDICARE, OTHER, SELFPAY ==
--- NOTE | 2023-05-31 16:00 | CT_ITS ---
EXAM: CT CHEST AND ABDOMEN WITH INTRAVENOUS CONTRAST CLINICAL INDICATION: BREAST CANCER STAGING IV CONTRAST ONLY TECHNIQUE: Helically acquired images were obtained of the chest and abdomen with intravenous contrast. This CT exam was performed using one or more of the following dose reduction techniques: automated exposure control, adjustment of the mA and/or kV according to patient size, and/or use of iterative reconstruction technique. CONTRAST: IV 100mL Isovue-300 RADIATION DOSE: CTDIvol = 13.42 mGy, DLP = 857.38 mGy-cm COMPARISON: No relevant prior studies available. FINDINGS: CHEST: LUNGS AND PLEURAL SPACES: Unremarkable. No mass. No consolidation or edema. No pleural effusion or thickening. No pneumothorax. HEART: Mild cardiomegaly. No pericardial effusion. MEDIASTINUM: Unremarkable. No mediastinal or hilar adenopathy. Esophagus is unremarkable. No hiatal hernia. THYROID: Unremarkable. No thyroid lesions. ABDOMEN: LIVER: Heterogeneous liver with a nodular surface pattern suggestive of cirrhosis. No definite focal liver lesions. GALLBLADDER AND BILE DUCTS: Contracted gallbladder with at least one small stone. No gallbladder distention or wall edema. No intra- or extrahepatic biliary ductal dilation. PANCREAS: Unremarkable. No focal cystic or solid mass. SPLEEN: Mild to moderate splenomegaly. ADRENALS: Unremarkable. No nodules. KIDNEYS AND URETERS: Unremarkable. Normal renal size and position. No hydronephrosis. STOMACH AND BOWEL: Evaluation of the GI tract is limited by absence of oral contrast. Cannot exclude stomach wall thickening. No dilated loops of bowel or evidence for obstruction. Cannot exclude segmental thickening of the regan of the small or large bowel. Cannot exclude enteritis or colitis. Moderate diffuse fecal retention. Diverticulosis without definite diverticulitis. Appendix is not seen. INTRAPERITONEAL SPACE: Unremarkable. No ascites or other fluid collection. No free air. CHEST and ABDOMEN: BONES/JOINTS: Demineralization and degenerative changes throughout the bones. Degenerative changes of the lumbar spine. Mild compression fracture of L1, likely old. Mild dextroconvex scoliosis of the lumbar spine. No suspicious lytic or blastic abnormality. SOFT TISSUES: Moderate fat-containing umbilical hernia. VASCULATURE: Calcified plaque of the aorta with no aneurysm. Tortuous calcified abdominal aorta with no aneurysm. Splenic varices are noted. No aortic dissection. No obvious central pulmonary embolism although this study was not performed with the pulmonary embolism protocol. LYMPH NODES: Unremarkable. No enlarged lymph nodes. CT/CT Chest AND Abd W/ Contrast IMPRESSION: 1. Mild cardiomegaly. No acute chest disease. 2. Cirrhosis. Indirect evidence of portal hypertension. 3. Cholelithiasis. 4. No acute abnormalities are seen. Electronically Signed: Talib Marrero MD at 19:48 EDT ,
== END | disposition home or self-care (01) ==
LOC: CT 16:00
PROVIDERS: PCP Internal Medicine; Referring Provider Internal Medicine Hematology & Oncology; Visit Provider Internal Medicine Hematology & Oncology
DX: C50.912 Malignant neoplasm of unspecified site of left female breast (principal)
CPT/HCPCS: 71260; 74160; Q9967

== ENCOUNTER 2023-06-12 07:33 | Observation (INO) | payer MEDICARE, OTHER, SELFPAY ==
--- NOTE | 2023-06-08 10:58 | EKG12_ITS ---
Test Reason : PRE OP Blood Pressure : / mmHG Vent. Rate : 061 BPM Atrial Rate : 061 BPM P-R Int : 162 ms QRS Dur : 076 ms QT Int : 470 ms P-R-T Axes : 015 -10 026 degrees QTc Int : 473 ms Normal sinus rhythm Nonspecific ST abnormality Abnormal ECG Confirmed by RIN ARAUJO, DIVINE ([id number]), supervising editor trailer ZEKE JIMENEZ ([id number]) on 06/09/2023 1:09:08 PM Referred By: Uday Brooks Confirmed By:DIVINE GRA MD
--- NOTE | 2023-06-08 11:35 | RAD_ITS ---
STUDY: X-RAY CHEST REASON FOR EXAM: Female, 72 years old. Preoperative evaluation. TECHNIQUE: Frontal and lateral views of the chest. COMPARISON: None. FINDINGS: Borderline cardiomegaly with aortic tortuosity and calcification, prominent central pulmonary arteries, mild hyperinflation and healed granulomatous calcifications. Diffuse mild thoracic spondylosis. No abnormality of the visualized soft tissue structures of the upper abdomen. RAD/Chest PA and Lateral IMPRESSION: Borderline cardiomegaly with hyperinflation and no acute or active cardiopulmonary disease. Electronically Signed: Dre Guaman MD at 11:52 EDT ,
[2023-06-08 15:51] LABS: Hematocrit 34.3 % (37-47); Hemoglobin 12.2 g/dL (12.0-15.0); Mean Corp Hgb Conc 35.6 g/dL (32-36); Mean Corpuscular Hgb 35.9 pg (27.0-32.0); Mean Corpuscular Volume 100.9 fL (81-99); Mean Platelet Vol. 8.8 fl (6.2-12.0); Platelet Count 109 K/mm3 (150-450); RBC Distribution Width CV 12.6 % (11.6-14.6); White Blood Count 5.1 K/mm3 (4.4-11.0)
[2023-06-08 16:01] LABS: International Normalized Ratio 1.2
[2023-06-08 16:02] LABS: Partial Thromboplast Time 33.6 Seconds (24.1-36.2)
[2023-06-08 16:14] LABS: ALB/GLOB Ratio 0.7 RATIO (0.9-2.4); AST(SGOT) 35 U/L (15-37); Alanine Aminotransfer ALT/SGPT 20 U/L (13-56); Albumin, Serum 2.9 g/dL (3.2-5.0); Alkaline Phosphatase 170 U/L (45-117); Anion Gap 4 (5-15); BUN 10 mg/dL (7-18); BUN/Creat Ratio 15.6 RATIO (10-20); Calcium,Total 9.1 mg/dL (8.5-10.1); Chloride 98 mmol/L (98-107); Creatinine, Serum 0.64 mg/dL (0.55-1.02); EST Glomerular Filtration Rate 97 mL/min (>60); Est Glom Filt Rate - Afr Amer 118 mL/min (>60); Globulin 3.9 g/dL (2.2-4.2); Glucose 111 mg/dL (74-106); Potassium 3.8 mmol/L (3.5-5.1); Protein, Total 6.8 g/dL (6.4-8.2); Sodium Level 132 mmol/L (136-145)
[2023-06-12] VITALS (11 sets, daily range): BP systolic 113–145; BP diastolic 56–74; PULSE 68–97; RESP 14–18; TEMP 36.5–37.2; O2SAT 93–100; BMI 25.7; BMI 26.5
--- NOTE | 2023-06-12 | IMM_PTH ---
PATIENT: MARY ALICE GA LOC: MS3 U#:[id number] AGE/SX: 72/F ROOM: TX317 RE06/12/[address]: Dr. Uday Brooks MD : 1950 BED: 1 DIS: 06/13/2023 SPEC #: [id number] RECD: 06/16/23 12:27 STATUS: KATHRYN MAYENStephan #: [id number] TED: 06/12/23 00:[address]: Uday Brooks DEPT: IMMUNOHISTOCHEMISTRY RECD BY: Terri Souza ENTERED: 06/16/23 12:28 SP TYPE: IMMUNO OTHR DR: Dr. 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 Localization is made via biotin free immunoperoxidase method. Appropriate controls are performed and reacted as expected. Results on target cell population are indicated in the following table: RESULTS: ANTIBODY / CLONE RESULT Block A1 AE1-3 (AE1/AE3/PCK26) positive CK8 ([id number]) positive Block A2 AE1-3 (AE1/AE3/PCK26) positive CK8 (35inuoA64) positive These tests were developed and their performance characteristics determined by [facility]. They may not have been cleared or approved by the U.S. Food and Drug Administration. The FDA has determined that such clearance or approval is not necessary. The above immunohistochemical/dualISH markers are ordered and reviewed by the Pathologist. INTERPRETATION: A. Left axillary sentinel lymph nodes, biopsy: One out of two lymph nodes, positive for macrometastatic carcinoma. AM:candice 06/19/2023
--- NOTE | 2023-06-12 | AXNB_PTH ---
PATIENT: MARY ALICE GA LOC: MS3 U#:[id number] AGE/SX: 72/F ROOM: ND317 RE06/12/[address]: Dr. Uday Brooks MD : 1950 BED: 1 DIS: 06/13/2023 SPEC #: [id number] RECD: 06/12/23 10:37 STATUS: KATHRYN CHUN #: [id number] TED: 06/12/23 00:[address]: Uday Brooks DEPT: SURGICAL PATHOLOGY RECD BY: Terri Souza ENTERED: 06/12/23 10:58 SP TYPE: AX NODE BX OTHR DR: Dr. Ernesto Rodriguez MD Tissues: A - Axillary lymph node, NOS B - Left breast, NOS C - Axillary lymph node, NOS Procedures: Frozen Section (charge) Frozen Section Add'l ([facility]) Surgery Specimen Level V Surgery Specimen Level HEADER OPERATION: Left mastectomy with sentinel lymph node biopsy with blue dye PRE-OP DIAGNOSIS: Left breast invasive ductal carcinoma TISSUE SUBMITTED: A - Left axillary sentinel lymph node, frozen section, B - Left breast, suture escobar axillary tail, C - Left axillary lymph nodes FROZEN SECTION DIAGNOSIS A. Left axillary sentinel lymph nodes, biopsy: One of two lymph nodes, positive for macrometastatic carcinoma. AM:candice 06/12/2023 MICROSCOPIC DIAGNOSIS A. Left axillary sentinel lymph nodes, biopsy: One of two lymph nodes with macrometastatic carcinoma (5 mm in greatest dimension). One lymph node with changes of previous biopsy. See comment. B. Left breast, radical mastectomy: Invasive ductal carcinoma. Ductal carcinoma in situ. See cancer synoptic report below. C. Left axillary sentinel lymph nodes, regional lymphadenectomy: Twelve out of 12 lymph nodes negative for carcinoma. AM:candice 06/16/2023 COMMENT A. Immunohistochemistry ([id number]) supports the above diagnosis. B. BREAST CANCER SUMMARY Procedure: Radical mastectomy Specimen: Total breast Size: 18.0 x 17.0 x 4.0 cm Laterality: Left breast Tumor: Size: Larger tumor 1.5 x 1.3 x 1.2 cm Smaller tumor 1.2 x 1.0 x 1.0 cm Histologic type: Invasive ductal carcinoma. Focality: Dual focus of invasive tumor Histologic grade (Danforth grade): Glandular/tubular differentiation score: 2 Nuclear pleomorphism score: 3 Mitotic count score: 2 Overall grade: 2 (score of 7) Lymphvascular invasion: Ductal Carcinoma In Situ: Present Estimated quantification: 20% of total tumor volume. Number of blocks: 3 of 4 blocks Architectural pattern: Cribriform Nuclear grade: 2 Necrosis: Not present Lobular Carcinoma In Situ: Not present Tumor extension: Skin: Free of carcinoma. Nipple: Free of invasive or in situ carcinoma. Skeletal muscle: Not applicable Margins: Distance of invasive carcinoma from closest (posterior) margin - 1.3 cm Distance of in situ carcinoma from closest (posterior) margin - 1.3 cm Lymph Nodes: See specimens A & C. Number of sentinel lymph nodes examined: 2 Total number of lymph nodes examined: 14 Size of largest metastatic deposit: 5.0 mm Extranodal extension: Not identified Treatment Effect: Unknown Lymphvascular invasion: Not identified Additional Pathologic Findings: Intraductal hyperplasia with focal atypia and fibrocystic change. Ancillary Studies: See [id number] / [id number] A. Positive (>95%, strong intensity) Positive (>95%, strong intensity) Equivocal (1-2+) Negative / Not amplified by dualISH. B. Positive (>95%, strong intensity) Positive (>95%, strong intensity) Equivocal (1-2+) Negative / Not amplified by dualISH. Microcalcifications: No present Clinical History: Masses of left breast. PATHOLOGIC STAGE: T1c N1a Mx The above summary is in compliance with [employer] (CAP) Cancer Protocol Checklist and [place] [employer] on Cancer (AJCC) Staging Manual, 8th Ed. MICROSCOPIC DESCRIPTION Slides are reviewed. GROSS DESCRIPTION A - Received fresh for frozen section consultation labeled with the patient's name is a specimen designated left axillary sentinel lymph node. The specimen consists of two irregular fragments of cruz-yellow fibrofatty tissue that in aggregate measure 5.0 x 2.5 x 0.6 cm. Dissection reveals two nodules resembling lymph nodes ranging in size from 1.5 to 2.0 cm in greatest dimension. The lymph nodes are submitted in their entirety for frozen section consultation in two blocks. / AM: 06/12/2023 B - Received in fixative is one container labeled with the patient's name and designated left breast mastectomy. The specimen consists of a mastectomy specimen measuring 18.0 x 17.0 x 4.0 cm. The anterior surface contains a skin fragment with centrally located nipple and areola measuring 18.0 x 4.0 cm. The specimen weighs 528 gm. The specimen is differentially inked as follows: posterior - black, superior - blue and inferior - green. Serial sections reveal two masses in the upper outer quadrant. These masses are from each other by 2.5 cm and are cruz-white and spiculated. One mass measures 1.2 x 1.0 x 1.0 cm and contains a metallic clip. The second mass measures 1.5 x 1.3 x 1.2 cm. Both masses are located 1.3 cm from its closest (posterior) margin of excision. The remainder of the breast parenchyma displays a mostly yellow cut surface with focal areas of dense, white fibrous cut surfaces. Brush Cleaner sections are submitted in 12 cassettes as follows: 1 - nipple areola and posterior margin, 2 - superior and inferior inked margins, 3 - inked medial margin, 4 - inked lateral margin, 5 & 6 - smaller mass, 7 & 8 - larger mass, 9-12 - insurance verification representative sections of uninvolved breast parenchyma. Note, sections are submitted after additional fixation. / AM: 06/14/2023 C - Received in fixative is one container labeled with the patient's name and designated left axillary lymph node. The specimen consists of three irregular fragments of cruz-yellow fibrofatty tissue ranging in size from 1.5 to 11.0 cm. Serial sections reveal multiple nodules ranging in size from 0.5 to 1.5 cm in greatest dimension. The nodules are submitted in their entirety in four cassettes. / AM:candice 06/14/2023 TC: 0 CPT: 41480, 04359, [id number], [id number]
--- NOTE | 2023-06-12 07:47 | NM_ITS ---
CLINICAL: 72-year-old female presenting for preoperative injection for sentinel lymph node identification. 99m Tc SULFUR COLLOID SENTINEL NODE PRE-OPERATIVE INJECTION COMPARISON: None available TECHNIQUE: The patient was administered 1.2 mCi of filtered 99mTc sulfur colloid to the left breast, by the nuclear medicine department personnel. No image acquisitions were obtained. Electronically Signed: Ashwin Mi DO at 9:36 EDT , NM/Lymph Node Injection Only IMPRESSION: undefined
[2023-06-12] MEDS: Lactated Ringers 1,000 ML 15 ML IV ×2 (08:19→11:25)
--- NOTE | 2023-06-12 08:26 | HP.PCM_ITS ---
History and Physical Date of Admission: 06/12/23 Allergies chlorhexidine [From Hibiclens] Allergy (Intermediate, Verified 06/05/23 09:43) Rash Medications pantoprazole 40 mg tablet,delayed release 40 mg PO DAILY #90 tabs 04/22/22 [Rx Confirmed 06/05/23] nadolol 20 mg tablet See Rx Instructions .Route .COMPLEX #90 tabs 12/01/22 [Rx Confirmed 06/05/23] potassium chloride 20 mEq tablet,extended release(part/cryst) 40 meq (2 x 20 mEq) PO BID 1 week #28 tabs 01/20/23 [Rx Confirmed 06/05/23] sodium chloride 1,000 mg soluble tablet 1,000 mg PO DAILY 05/03/23 [History Confirmed 06/05/23] alendronate 70 mg tablet (Fosamax) 70 mg PO QWEEK #30 tabs 05/09/23 [Rx Confirmed 06/05/23] compress.stocking,knee,reg,lrg #2 ea 05/09/23 [Rx Confirmed 06/05/23] ascorbate calcium (vitamin C) 500 mg tablet 500 mg PO DAILY 05/24/23 [History Confirmed 06/05/23] calcium carbonate 500 mg calcium (1,250 mg) chewable tablet (Calcium 500) 1,000 mg PO DAILY 05/24/23 [History Confirmed 06/05/23] cholecalciferol (vitamin D3) 50 mcg (2,000 unit) capsule 50 mcg PO DAILY 05/24/23 [History Confirmed 06/05/23] furosemide 40 mg tablet 40 mg PO DAILY 05/24/23 [History Confirmed 06/05/23] ibuprofen 400 mg tablet 400 mg PO Q8H PRN 05/24/23 [History Confirmed 06/05/23] mecobalamin (vitamin B12) 1,000 mcg lozenges 1,000 mcg PO DAILY 05/24/23 [History Confirmed 06/05/23] tramadol 50 mg tablet 25 mg PO BID PRN 05/24/23 [History Confirmed 06/05/23] [facility] Medical History Abnormal mammogram of left breast Age-related physical debility Arthritis Bleeding ulcer Breast cancer Broken hip Carotid stenosis, right Cellulitis of right leg Cirrhosis Dermatitis Elevated liver enzymes GERD (gastroesophageal reflux disease) History of skin cancer Hx of staphylococcal infection Hypertension Hypokalemia Hyponatremia Hypotension Left breast lump Left hip pain Osteoporosis Post-menopausal Preoperative evaluation to rule out surgical contraindication Screening for thyroid disorder Squamous cell skin cancer Ulcer of right leg Umbilical hernia Varicose veins of both lower extremities Vertigo Surgical History History of hysterectomy History of knee replacement History of left hip replacement Status post Mohs surgery Family History Mother Alzheimer diseaseFather Heart disease Diabetes Social History Smoking Status: Never smoker alcohol intake: current substance use type: does not use HPI HPI HPI: 72-year-old female. She presented to my office on May 15, 2023. She had concerns regarding an umbilical hernia and carotid occlusive disease and alcoholic liver disease but that time she also had abnormal mammographic imaging of May 10, 2023. There is a suspicious 9 x 11 x 9 mm solid nodule 3 o'clock position left breast +7 cm and a similar-appearing suspicious lesion left breast 2 o'clock position +9 cm. We did an ultrasound-guided core biopsy of each. Also I felt that there was an abnormal left axillary lymph node and we did a sample of that as well. She was seen by Dr. Nabeel Patel on May 24, 2023. 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 Her chronic comorbidities were noted including chronic nonhealing leg wound. Metastatic work-up was pursued. Recommendations leaning toward a left mastectomy with sentinel node biopsy was offered. Because of her ongoing medical issues it is felt that she is not a candidate for systemic chemotherapy. She is felt to be at high anesthesia and surgical risk. Her laboratory of May 03, 2023 demonstrated a BUN of 9 and creatinine of 0.65 with a total bilirubin of 2.6 and a GGT of 1353 and AST of 70 and ALT of 30 and an alkaline phosphatase of 299 with ammonia level elevated at 50 and an albumin of 2.2. A chest CT obtained May 31, 2023 suggest mild cardiomegaly cirrhosis with indirect evidence of portal hypertension and cholelithiasis but no other acute abnormalities. A bone scan of May 29, 2023 demonstrated increase concentration of third lumbar vertebra and bilateral anterior seventh ribs consistent with trauma fracture. Degenerative disease of wrists and hands. No definitive evidence of multifocal metastatic disease. On May 29, 2023 a left axillary ultrasound was obtained. Multiple lymph nodes were identified. There was a 1.1 x 0.8 x 0.5 cm lymph node with evidence of biopsy and a tissue clip in it. There is an additional 1.8 x 0.5 x 0.5 cm benign-appearing lymph node. BI-RADS Category 2. The previous lymph node sampling was negative for metastatic disease. May 15, 2023 pathology: MICROSCOPIC DIAGNOSIS A. Left breast tissue, 2 o?clock, 9 cm from nipple, core biopsy: Invasive ductal carcinoma, nuclear grade 2 (0.6 cm in greatest length). See comment. B. Left breast tissue, 3 o?clock, 7 cm from nipple, core biopsy: Invasive ductal carcinoma, nuclear grade 2 (1.0 cm in greatest length). Focal ductal carcinoma in situ. See comment. C. Left lymph node, core biopsy: Fragment of lymph node tissue, negative for metastatic carcinoma. ANTIBODY / CLONE RESULT Block A E-Cad (ECH-6) positive CK8 (60cuxbG25) positive Calponin-1 (FA064X) negative CK5-6 (D5 & 1684) negative P40 (BC28) negative P53 (DO-7) negative (null pattern) Ki-67 (30-9) positive, low (~15%) MORPHOMETRIC ANALYSIS ER (clone 6F11) >95%, strong intensity ME (clone 16/1E2) >95%, strong intensity Her-2Neu (clone CB11) 1-2+ Block B E-Cad (ECH-6) positive CK8 (39jojlT99) positive Calponin-1 (WX023R) negative * CK5-6 (D5 & 1684) negative * P40 (BC28) negative * P53 (DO-7) positive, rare cells (wild type pattern) Ki-67 (30-9) positive * Positive in the area of DCIS. MORPHOMETRIC ANALYSIS ER (clone 6F11) >95%, strong intensity ME (clone 16/1E2) >95%, strong intensity Her-2Neu (clone CB11) 1-2+ Block C AE1-3 (AE1/AE3/PCK26) negative CK7 (OV-TL12/30) negative IN SITU HYBRIDIZATION (RYAN) FOR HER2 Specimen A Interpretation: Negative / Not Amplified HER2 : CEP-17 Ratio: 0.8 Average HER2 Signal: 1.4 Average CEP-17 Signal: 1.65 Number of Tumor Cells Scanned: 50 Specimen B Interpretation: Negative / Not Amplified HER2 : CEP-17 Ratio: 1.09 Average HER2 Signal: 2.35 Average CEP-17 Signal: 2.1 Number of Tumor Cells Scanned: 50 My previous notes reflect the following Visit Reasons: Stenosis of Right Carotid Artery/Umbilical Hernia Chief Complaint: stenosis right carotid/umbilical hernia/birads 5 Is patient in pain?: Yes Allergies chlorhexidine [From Hibiclens] Allergy (Intermediate, Verified 05/15/23 15:58) Rash Medications pantoprazole 40 mg tablet,delayed release 40 mg PO DAILY #90 tabs 04/22/22 [Rx Confirmed 05/15/23] nadolol 20 mg tablet See Rx Instructions .Route .COMPLEX #90 tabs 12/01/22 [Rx Confirmed 05/15/23] potassium chloride 20 mEq tablet,extended release(part/cryst) 40 meq (2 x 20 mEq) PO BID 1 week #28 tabs 01/20/23 [Rx Confirmed 05/15/23] furosemide 40 mg tablet mg PO 04/26/23 [History Confirmed 05/15/23] sodium chloride 1,000 mg soluble tablet 1,000 mg PO DAILY 05/03/23 [History Confirmed 05/15/23] alendronate 70 mg tablet (Fosamax) 70 mg PO QWEEK #30 tabs 05/09/23 [Rx Confirmed 05/15/23] compress.stocking,knee,reg,lrg #2 ea 05/09/23 [Rx Confirmed 05/15/23] PFSH Medical History (Updated 05/15/23 @ 05:[address] Uday Brooks MD) Abnormal mammogram of left breast Age-related physical debility Arthritis Bleeding ulcer Broken hip Carotid stenosis, right Cellulitis of right leg Cirrhosis Dermatitis Elevated liver enzymes GERD (gastroesophageal reflux disease) History of skin cancer Hx of staphylococcal infection Hypertension Hypokalemia Hyponatremia Hypotension Left breast lump Left hip pain Osteoporosis Post-menopausal Preoperative evaluation to rule out surgical contraindication Screening for thyroid disorder Squamous cell skin cancer Ulcer of right leg Umbilical hernia Varicose veins of both lower extremities Vertigo Surgical History History of hysterectomy History of knee replacement History of left hip replacement Family History Mother Heart diseaseFather Heart disease Social History Smoking Status: Never smoker alcohol intake: current alcohol intake frequency: 0-2 drinks per day Alcohol type: wine substance use type: does not use HPI HPI HPI: 72-year-old female. I assisted her with ongoing follow-up of her extracranial carotid artery occlusive disease. Recently she was seen in Dr. Shabbir Galaviz's office for venous insufficiency and lower extremity wounds. She is felt to have venous stasis disease plus skin cancer. My most recent office visit was June 21, 2021. She was felt to be stable from her extracranial disease at that time. She is in need of updated carotid duplex imaging. It also appears that she is just recently had diagnostic mammograms and left breast ultrasound demonstrating what is felt to be a BI-RADS Category 5 lesion 3 o'clock position +7 cm left breast there is a 9 x 11 x 9 mm hypoechoic irregular solid nodule. There is a second similar-appearing nodule left breast 2 o'clock position +9 cm measuring 7 x 4 x 5 mm. Both lesions are felt to be suspicious. BI-RADS Category 5. I have personally reviewed her images and concur. As of May 03, 2023 total bilirubin was 2.6 with a GGT of 1353 and an AST of 70 and an ALT of 30 and an alkaline phosphatase of 299 with ammonia level of 50 and an albumin level of 2.9 Patient is rather complex. She complains of increased bulging at her umbilicus. She states that years ago she was diagnosed with alcoholic cirrhosis. She had a utilization review specialist at that time. Now in the interim no gastroenterology visitation. Apparently she is got an appointment perhaps early June [address] Trenton Nicole. She has surgery scheduled for tomorrow for right lower extremity squamous cell carcinoma by plastic surgery in [facility]. She expects to be off her legs for period of time. Not able to drive. She also states that a week or so ago her who falls frequently is and is a large man fell after he got out of the truck and she had to assist with lifting him and now she has severe back pain. She has not yet brought this to the attention of her primary care physician but it is limiting her mobility. She has the chronic bilateral lower extremity swelling and wounds likely complicated by her cirrhosis and venous insufficiency. Regarding her carotid duplex imaging she denies any focal central neurologic symptoms no recent TIA however she has not had an updated carotid duplex exam. Finally she had a screening bilateral mammography and diagnostic left mammogram breast ultrasound demonstrating 2 lesions in the left breast 1 at the 2:00 +9% in position and 1 at 3:00 +7 cm. In addition she is being referred for surgical consultation regarding an umbilical hernia. Her medical care is complicated by cirrhosis. May 10, 2023 STUDY: ULTRASOUND BREAST - LEFT REASON FOR EXAM: Female, 72 years old. Abnormal screening mammogram. TECHNIQUE: Axial and longitudinal images of the LEFT breast were performed with a high resolution ultrasound transducer. # OF IMAGES: 13 COMPARISON: Comparison is made with prior mammogram dated May 10, 2023. FINDINGS: LEFT Breast: There is a 9 mm x 11 mm x 9 mm hypoechoic irregular solid nodule at the 3:00 position of the breast at 7 cm from the nipple. A similar appearing nodule is seen at the 2:00 position of the breast and 9 cm from the nipple. This measures 7 mm x 4 mm x 5 mm. Increased vascularity is seen. Biopsies of both lesions recommended. US/Breast Limited Unilateral IMPRESSION: 2 suspicious lesions are seen at the 3:00 and 2:00 position of the left breast as described. Biopsy recommended. ASSESSMENT CATEGORY: BIRADS Category 5: Highly Suggestive of Malignancy - Appropriate Action Should Be Taken. A letter regarding these results will be sent to the patient by the facility within 30 days. Electronically Signed: Nahum Kelley MD at 14:10 EDT , May 10, 2023 MAMMOGRAPHY - BILATERAL DIAGNOSTIC REASON FOR EXAM: Female, 72 years old. One and a half week history of left breast lump. PERTINENT HISTORY: Non-contributory. TECHNIQUE: Digital bilateral breast zana (3D mammographic acquisition) in the CC and MLO projections. 2-D mediolateral oblique (MLO) and craniocaudad (CC) views of both breasts were obtained. CAD: Full Field Digital Mammography with Computer Added Detection was performed. COMPARISON: Comparison is made with prior abdomen examination dated June 24, 2019. FINDINGS: Breast Composition: The breasts are heterogeneously dense, which may obscure small masses. The palpable lump corresponds to a 1.1 cm x 1.1 cm spiculated nodule in the deep upper lateral aspect of the left breast. Correlation with ultrasound is recommended. No other significant abnormalities are identified. BI/DIAG MAMM W/CAD, BILAT IMPRESSION: 1.1 cm by 1.1 cm spiculated nodule in the deep upper lateral aspect of the left breast. Correlation with ultrasound is recommended. ASSESSMENT CATEGORY: BIRADS Category 0: Incomplete. Need additional imaging evaluation. A letter regarding these results will be sent to the patient by the facility within 30 days. Approximately 10% of breast cancers are not detected by mammography. A normal mammogram should not delay biopsy of a clinically suspicious abnormality. Electronically Signed: Nahum Kelley MD at 10:47 EDT , My previous note of June 21, 2021 reflects the following HPI: MARY ALICE GA, is a 70 F who presents to the office today for surgical consultation regarding extracranial carotid artery occlusive disease. The patient is referred by emergency room physician Dr. Claudia Diego and a written copy of my surgical consult recommendations will return to her. The patient presented to the emergency room on June 09, 2021 complaining of dizziness. It apparently had been going on for weeks. Apparently onset was after a fall. She was not noted to be anemic. On June 09, 2021 a head neck CTA was obtained. The radiologist interpreted this as 65 to 70% stenosis of the proximal right internal carotid artery. The patient was additionally noted to have a low sodium of 130. Potassium was low at 3.3. By report she has no primary care p hysician so she was referred to Dr. Ernesto Rodriguez and to myself. I have reviewed her CTA of the neck and find the radiologist interpretation very difficult to assess due to the dense calcification at the proximal internal carotid carotid bulb. Therefore I requested a carotid duplex imaging exam prior to her appointment today. This is as follows below and it notes no hemodynamically significant stenosis of the carotids and patent antegrade vertebrals bilaterally I have personally reviewed her CT of the neck and disagree with the radiology interpretation. The degree of calcific plaque makes it impossible to determine the degree of actual stenosis. The carotid duplex examination demonstrates similar velocity in the common carotid prior to the exit velocity in the internal carotid. There is no hemodynamically significant stenosis based upon carotid duplex imaging of either carotid artery. She is patent antegrade vertebral arteries as well. ROS General General: Yes weight change and fatigue; No appetite, colon cancer, breast cancer or weakness HEENT HEENT: No difficulty swallowing, eye injury, eye surgery, swollen glands or hoarseness Endo Endocrine: No thyroid disease, diabetes mellitus, thyroid cancer, Hair loss, heat intolerance or cold intolerance Skin Skin: No rash or changing moles Breast Breast: Yes left breast lump and abnormal US; No right breast lump, nipple discharge, breast pain, abnormal mammogram or breast enlargement Musc Musculoskeletal: Yes back problems and arthritis; No rheumatoid arthritis, gout or joint pain Cardio Cardiovascular: No murmur, pacemaker, heart disease, atrial fibrillation, high blood pressure, heart attack, heart stent, palpitations, shortness of breat with exertion or chest pain Psych Psychiatric: No depression, anxiety or hearing voices Resp Respiratory: Yes shortness of breath, No sleep apnea, No cough, No COPD, No asthma, No emphysema and No wheezing Gastro Gastrointestinal: No abdominal pain, No nausea or vomiting, No diarrhea, No constipation, No blood in stool, No acid reflux, No hemorrhoids, No ulcers, No gallbladder problem and No black,tarry stools Ramirez Hematologic: No blood thinners, No blood disorders, No bleeding, Yes anemia and No blood clots Neuro Neurologic: No system reviewed and no additional complaints, except as documented, No as per HPI, No abnormal gait, No abnormal hearing, No abnormal movements, No abnormal speech, No behavioral changes, No burning sensations, No confusion, No convulsions, No disequilibrium, No dizziness, No localized weakness, No frequent falls, No headache(s), No lack of coordination, No loss of vision, No memory loss, No numbness, No other visual disturbances, No radicular pain, No restless legs, No sensory deficit, No syncope, No tingling, No tremor(s), No weakness and No other Exam Const General: cooperative and frail appearing Nutritional Appearance: underweight [facility] Head: normal to inspection Eyes General: appearance normal, both eyes and all related structures Neck Neck: normal visual inspection Other: Carotids are 3+. I do not detect a carotid bruit. Chest Other: Chest has increased venous markings bilateral chest. Right breast no focal mass. No nipple discharge. No axillary clavicular adenopathy Left breast has a palpable mass 3 o'clock position +7 cm. I do not detect the left breast mass at 2:00 +9 cm. I do detect rubbery enlarged left axillary adenopathy Resp Auscultation: clear to auscultation bilaterally Other: Slightly diminished respiratory excursion, Cardio Rate: regular rate Rhythm: regular rhythm GI Palpation: soft Other: Thin abdominal wall, protuberant abdominal wall, protuberant abdominal hernia reducible with venous ectasia at the umbilicus, no focal mass, I cannot detect a fluid wave Musc Other: Cervical kyphosis noted Skin Other: Bilateral lower extremities are wrapped in dressings and support hose, Neuro General: patient alert Other: Patient is anxious about the multitude of current medical problems. Extrem Other: Lower extremities in wraps, tender Psych Mood: anxious mood Office Procedures Biopsy Provider Documentation Ultrasound-guided needle core biopsy upper outer quadrant left breast biopsy lesion 2 o'clock position +9 cm, ribbon clip placement Ultrasound-guided needle core biopsy upper outer quadrant left breast lesion 3 o'clock position +7 cm, palpable lesion, coil clip placement Ultrasound-guided needle core biopsy single lymph node of several identified in the left axilla measuring 1.49 cm in length, coil clip placement Timeout informed consent was obtained. The patient was taken to the procedure room placed in the modified right lateral decubitus position the left breast and axilla sterilely prepped and draped in the left breast 2:00 +9 cm lesion was a smaller the 2 lesions. It was identified 1% lidocaine mixed 50-50 with 0.5% Marcaine was used as a local anesthetic. Throughout the entire procedure total of 30 cc of local was used. Local was instilled. The patient was painful to even light touch. Significant encouragement was required. A small stab incision was created 14-gauge Monopty needle was advanced to prefire depth pre and post fire films were torrent obtained. A single core was obtained and deposited in formalin. A ribbon clip was placed. Through the same small incision I was able to identify the palpable lesion left breast 3 o'clock position +7 cm. Again local was instilled. A 14-gauge Monopty needle was advanced to prefire depth. Pre and post fire films were obtained. Single core was obtained. A coil clip was placed. The specimen was immediately placed in formalin The left axilla was inspected and identified at least 2 lymph nodes. One me asured 1.49 cm in diameter. Again local was instilled and a small stab incisions created. 2 14-gauge Monopty needle core biopsies were obtained. Pre and post images obtained. The specimens were submitted in formalin. A coil clip was placed. The patient tolerated the procedure went well no apparent complication pressure was held for hemostasis Steri-Strip Telfa OpSite dressing applied ice pack applied she was given activity and wound care instructions. Uday Brooks M.D., F.A.C.S. Alert Health Information Administrator Yes Biopsy Breast Biopsy: [id number] US Guidance (x3) Procedure Time Out Time Out Informed consent given: Yes Consent signed: Yes Time out checklist: patient, procedure, site marked/identified, positioning of patient, supplies available, allergies confirmed and team agrees on procedure Time out staff in room: Yes Time out verified: Yes Time out date: 05/15/23 Time out time: 02:45 Assessment and Plan Assessment and Plan (1) Abnormal mammogram of left breast: Status: Acute (2) Left breast lump: Status: Acute Qualifiers: Breast mass location: upper outer quadrant Qualified Code(s): N63.21 - Unspecified lump in the left breast, upper outer quadrant (3) Squamous cell skin cancer: Status: Chronic (4) Umbilical hernia: Status: Chronic Qualifiers: Obstruction and gangrene presence: without obstruction or gangrene Qualified Code(s): K42.9 - Umbilical hernia without obstruction or gangrene (5) Carotid stenosis, right: Status: Acute (6) Cirrhosis: Status: Acute Qualifiers: Ascites presence: unspecified Hepatic cirrhosis type: unspecified hepatic cirrhosis Qualified Code(s): K74.60 - Unspecified cirrhosis of liver Plan: Complicated patient with the above issues. Primary issue at hand includes the highly suspicious upper outer quadrant left breast lesions x2 and left breast adenopathy. As noted above all 3 of these areas or ultrasound-guided needle core biopsied. Pathology is pending. The patient will likely need medical oncology referral. I plan to obtain a formal left axillary ultrasound for definition. Acute onset back pain as of yet not evaluated per primary care. Asymptomatic extracranial carotid artery stenosis. We will obtain a carotid duplex exam which would need to be performed preoperatively if surgery is required Umbilical hernia currently reducible but likely complicated by the patient's cirrhosis. I would definitively await gastroenterology consultation and input as I have significant concerns regarding the patient's chronic cirrhosis. Not clear whether she currently has ascites but as the hernia is reducible I would not be anxious to offer her surgery on the area at this time By report the patient is scheduled tomorrow to have plastic surgical treatment of a squamous cell skin cancer. This will slow our ability to continue her other treatments and she has chronic lower extremity swelling and wound healing problems The upper outer left breast mammographic abnormalities and palpable abnormality at the 3:00 +7 center position are highly suspicious for breast cancer. Whether they have metastasized to the left axillary lymph nodes as yet unclear and left axillary ultrasound as well as pathology is pending. As noted recommending medical oncology referral The patient's had an opportunity to ask and have questions answered. She was anxious and tearful but otherwise tolerated the ultrasound-guided biopsies to day. I appreciate the ongoing opportunity of assisting with her surgical care Surgical follow-up will be scheduled after my return from being out of the office. Copy: Dr. Ernesto Brooks M.D., F.A.C.S. (7) Back pain: Qualifiers: Back pain location: low back pain Chronicity: acute Back pain laterality: unspecified Sciatica presence: without sciatica Qualified Code(s): M54.50 - Low back pain, unspecified Orders: Orders Carotid Duplex Ultrasound Today I65.21 - Occlusion and stenosis of right carotid artery, R42 - Dizziness and giddiness Breast Limited Unilateral Today N63.21 - Unspecified lump in the left breast, upper outer quadrant Coding Level of Care Code Attention Health Information Administrator Diagnoses Abnormal mammogram of left breast R92.8 Mass of upper outer quadrant of left breast N63.21 Breast mass location: upper outer quadrant Squamous cell skin cancer C44.92 Umbilical hernia without obstruction and without gangrene K42.9 Obstruction and gangrene presence: without obstruction or gangrene Carotid stenosis, right I65.21 Hepatic cirrhosis, unspecified hepatic cirrhosis type, unspecified whether ascites present K74.60 Ascites presence: unspecified Hepatic cirrhosis type: unspecified hepatic cirrhosis Acute low back pain without sciatica, unspecified back pain laterality M54.50 Back pain location: low back pain Chronicity: acute Back pain laterality: unspecified Sciatica presence: without sciatica Assessment and Plan Assessment and Plan (1) Breast cancer: Status: Acute Qualifiers: Breast location: unspecified site of breast Estrogen receptor status: positive Laterality: left Patient sex: female Qualified Code(s): C50.912 - Malignant neoplasm of unspecified site of left female breast; Z17.0 - Estrogen receptor positive status [ER+] (2) Cirrhosis: Status: Acute Qualifiers: Ascites presence: unspecified Hepatic cirrhosis type: unspecified hepatic cirrhosis Qualified Code(s): K74.60 - Unspecified cirrhosis of liver (3) Umbilical hernia: Status: Chronic Qualifiers: Obstruction and gangrene presence: without obstruction or gangrene Qualified Code(s): K42.9 - Umbilical hernia without obstruction or gangrene (4) Carotid stenosis, right: Status: Acute Plan Complicated 72-year-old female with multifocal 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 Ongoing alcohol use and alcoholic cirrhosis primary comorbidity. The patient is not felt to be of a medical status to require postoperative chemotherapy. She presents now to discuss surgical treatment options. Is aware that the 2 biopsies show invasive ductal carcinoma. The left axillary lymph node biopsy of one of the 2 enlarged lymph nodes was negative. She is aware that Dr. Nabeel Patel is recommending left total mastectomy with axillary sentinel lymph node biopsy. This is my recommendation as well. I discussed with her the technique benefit risk complication alternatives of nuclear tracer and blue dye left axillary sentinel lymph node biopsy with possible conversion to an axillary dissection in combination with a left total mastectomy. She is aware that her medical comorbidities significantly do increase her operative and perioperative risk. She has had an opportunity to ask and have questions answered. At this point she is very much interested in proceeding with definitive surgery. She is not interested in pursuing any type of reconstructive procedure at this time. I appreciate the ongoing opportunity of assisting with her surgical care. Copy: Dr. Ernesto Brokos M.D., F.A.C.S I have examined the patient and the H&P has been reviewed. There are no clinical changes since date of exam. Uday Brooks M.D., F.A.C.S.
--- NOTE | 2023-06-12 08:27 | DCINST_ITS ---
Documented by User: Dr. Uday Brooks MD 06/12/23 08:28 Discharge Instructions Procedure Breast Surgery Diet Discharge Diet: No restrictions Activity Discharge Activity: May Not Drive (for 2-3 days or while taking narcotic pain meds.) May shower in (days): 1 Lifting Restrictions: 10 pounds for 1 week. Dressing / Incision Call your doctor if your incision/area has: Continuous Slow Oozing and Sudden Increased Bleeding Call your doctor if you observe: Fever of 101 or Higher Suture Line Care: Avoid Pulling/Pushing and Avoid Pinching/Bending Remove Dressing in: 1 day Additional Dressing/Incision Instructions:: You may remove your dressings daily and clean the drain sites with Q-tip and peroxide then reapply gauze and dried tape. Then reapply the gentle bias ply compression wrap. Empty measure and record the drain output and bring that back to your follow-up appointment. Follow Up Care Please Follow Up With: Uday Brooks MD Test Results: Test results from this visit will be discussed in further detail at your follow- up appointment, if applicable. Discharge Plan Admission Admit Date/Time: 06/12/23 07:33 Primary Reason for Your Visit: Left breast cancer Attending Provider: Uday Brooks Primary Care Provider: Ernesto Rodriguez Instructions Additional Instructions / Restrictions: Breast Mastectomy Diet ? Start light with soups and soft bland foods. You may advance diet as tolerated. Activity ? You may drive in 5 days but not while taking narcotic pain medication. ? I encourage walking. You may go up steps, one at a time. ? Do not swim or use hot tubs until your drains have been removed, and your surgeon has evaluated your progress. Lifting ? You may lift up to 10 pounds until your surgeon advises on unrestricted activity. ? Please limit over the head reaching and straining while your drains are in place. ? Once drains are removed, you may inquire about when range of motion exercises would be appropriate. Dressings/Incision ? Do not shower, or tub bathe until your surgeon has given you permission. For hygiene, sponge bathe only. ? If you have drains in place, then you may change the dressing daily and cleanse the drain sites with a Q-tip and peroxide followed by dry gauze and tape. The incision itself will normally have steri-strips or surgical glue and should not require cleansing. Medications ? Anesthesia used during surgery and pain medications may cause constipation. I recommend initiating on the day of surgery a fiber supplement like, Metamucil, Citrucel, FiberCon, Benefiber, or a generic form of these medications. 1 heaping tablespoon in water daily. You may continue to utilize any bowel regimen or oral laxatives that you routinely take. ? As long as you are not intolerant to Tylenol, acetaminophen, ibuprofen, Motrin, Advil, Aleve, or similar medications, I would recommend transitioning to these xqhb-xjy-[id number] medicines as soon as possible instead of continued use of narcotic pain medication. Follow up ? You should call [facility] soon after surgery, at [phone] option 1 to make a follow up appointment for 7 days after your surgery?This may need to be sooner if you have a drain in place?please discuss with your physician. ? Please review the following information regarding postoperative care after breast surgery Exercises following breast surgery The following stretching exercises should be done two (2) to three (3) repetitions, three times daily to ensure you regain the mobility of the shoulder you had prior to surgery. Begin these stretching exercises the day after surgery. Arm Lifts This is the most important exercise for you to do. While standing (or sitting on the edge of a chair), lift both arms directly over your head. Your goal is to h ave your elbows ?touching? your ears. Some find it helpful to do this exercise while looking in a mirror. Arm Swings While standing, swing both arms back and forth from the shoulder (like the pendulum of a clock). Attempt to keep the elbows stiff. Increase the distance of the swing each time. Wall Climbing Stand facing a wall with feet close to the wall. Climb the fingertips of both hands up the wall then creep them down again. Attempt to go a little higher each time. If you will be having post-operative radiation therapy following your breast surgery, you will be instructed additional way to do this exercise. It is important to keep the rest of your body active. Deep breaths and coughing are necessary after surgery. You may use stairs and ride in a car. Most people may drive seven days after surgery. Shaving, etc. Be careful when shaving under the arm or putting on deodorant. It is a good idea to look in the mirror while doing either, this is to prevent irritating the incision. Blood draws, injections: It is preferred that you have blood drawn or have an injection in the operative arm. THIS IS A PRECAUTIONARY MEASURE. If it is necessary for you to have blood drawn using this arm, mention that you have had breast surgery and have had lymph nodes removed. Two weeks after surgery you will notice some changes: You may feel discomfort in the armpit and/or down the arm. This is the beginning of the inner tissue healing and at this time, discomfort is normal. Increase you exercise routine and take mild pain medication (Tylenol or acetaminophen). Warm showers may also provide discomfort. At this time, you may notice the incision feels thick and lumpy, this is normal. The scar tissue can be softened by massaging the area with a mild lotion containing vitamin e or pure lanolin. These products may be purchased over the counter at any pharmacy or grocery store. After several weeks, the scar tissue will soften. Stay aware form perfumed lotions, as the alcohol in them may irritate the skin. If you are having post-operative radiation, do not apply anything to your skin without firs consulting your radiation oncologist. Swelling If you should develop any swelling (collection of fluid) in your arm, hand, near the incision or under your arm, please contact your surgeon. Sometimes, elevating the entire arm on pillows (higher than the level of your heart) will r educe some of the swelling. Do not sleep on your surgical side. This places the area in a dependent position and increases swelling of the breast and chest wall. A small amount of swelling of the breast, chest wall and armpit is normal for the first month after surgery. Going home with a drain: Patients who have undergone breast surgery are sometimes discharged with an external drainage device. The care, emptying and recording of the drainage will be demonstrated to you during your teaching session with the nurse prior to discharge. If you develop a fever over 101 degrees F, increased drainage (more than 240 cc/8 oz) over a 24 hours period or increased pain not controlled by pain medication, please call your doctors office. The amount of fluid that is drained over a 24-hour period will gradually decrease. The color may change from polk re, to red orange, to straw color. When you return for your post-operative visit four to seven days after surgery it is usually time to remove the drain. Discharge Orders/Prescriptions Prescriptions: New tramadol 50 mg tablet 50 mg PO BID PRN (Reason: pain) 3 Days Qty: 6 0RF Continued furosemide 40 mg tablet 40 mg PO DAILY sodium chloride 1,000 mg tablet,soluble 1,000 mg PO DAILY calcium carbonate [Calcium 500] 500 mg calcium (1,250 mg) tablet,chewable 1,000 mg PO DAILY cholecalciferol (vitamin D3) 50 mcg (2,000 unit) capsule 50 mcg PO DAILY ascorbate calcium (vitamin C) 500 mg tablet 500 mg PO DAILY mecobalamin (vitamin B12) 1,000 mcg lozenge 1,000 mcg PO DAILY Rx Instructions: allow to dissolve in mouth OR may chew lightly before swallowing ibuprofen 400 mg tablet 400 mg PO Q8H PRN (Reason: pain) spironolactone 50 mg tablet 50 mg PO BID Patient Comments: TAKE 1 TAB BY MOUTH TWICE A DAY acetaminophen 500 mg capsule 500 mg PO Q6H PRN (Reason: pain) levofloxacin 500 mg tablet 500 mg PO DAILY nadolol 20 mg tablet 20 mg PO DAILY Rx Instructions: TAKE 1 TABLET BY MOUTH EVERY DAY potassium chloride 20 mEq tablet,ER particles/crystals 20 meq PO DAILY pantoprazole 40 mg tablet,delayed release (DR/EC) 40 mg PO DAILY Qty: 90 1RF (DME) compress.stocking,knee,reg,lrg Misc See Rx Instructions .MEDSUPPLY Qty: 2 1RF Rx Instructions: wear daily for venous insufficiency 20-30 mmHg alendronate [Fosamax] 70 mg tablet 70 mg PO QWEEK Qty: 30 1RF Discontinued tramadol 50 mg tablet 25 mg PO BID PRN (Reason: pain) Referrals / Follow Up: Ernesto Rodriguez MD [Primary Care Provider] - Uday Brooks MD [Med Staff - Active Staff] - (Please call to schedule an appointment for Monday, 06/19.) Disposition Disposition (needs filled in before D/C Order can be placed): Home, Self Care Documented by User: Kesha MARQUEZ PA-C 06/13/23 09:31 Discharge Instructions Dressing / Incision Change Dressing in: 1 day Additional Dressing/Incision Instructions:: You may remove your dressings daily and clean the drain sites with Q-tip and peroxide then reapply gauze and dried tape. Then reapply the gentle compression wrap. Empty measure and record the drain output and bring that back to your follow-up appointment. Discharge Plan Admission Admit Date/Time: 06/12/23 07:33 Primary Reason for Your Visit: Left breast cancer Attending Provider: Uday Brooks Primary Care Provider: Ernesto Rodriguez Instructions Additional Instructions / Restrictions: Breast Mastectomy Diet ? Start light with soups and soft bland foods. You may advance diet as tolerated. Activity ? You may drive in 5 days but not while taking narcotic pain medication. ? I encourage walking. You may go up steps, one at a time. ? Do not swim or use hot tubs until your drains have been removed, and your surgeon has evaluated your progress. Lifting ? You may lift up to 10 pounds until your surgeon advises on unrestricted activity. ? Please limit over the head reaching and straining while your drains are in place. ? Once drains are removed, you may inquire about when range of motion exercises would be appropriate. Dressings/Incision ? Do not shower, or tub bathe until your surgeon has given you permission. For hygiene, sponge bathe only. ? If you have drains in place, then you may change the dressing daily and cleanse the drain sites with a Q-tip and peroxide followed by dry gauze and tape. The incision itself will normally have steri-strips or surgical glue and should not require cleansing. Medications ? Anesthesia used during surgery and pain medications may cause constipation. I recommend initiating on the day of surgery a fiber supplement like, Metamucil, Citrucel, FiberCon, Benefiber, or a generic form of these medications. 1 heaping tablespoon in water daily. You may continue to utilize any bowel regimen or oral laxatives that you routinely take. ? As long as you are not intolerant to Tylenol, acetaminophen, ibuprofen, Motrin, Advil, Aleve, or similar medications, I would recommend transitioning to these mszl-ogj-kqgdisg medicines as soon as possible instead of continued use of narcotic pain medication. Follow up ? You should call [facility] soon after surgery, at option 1 to make a follow up appointment for 7 days after your surgery?This may need to be sooner if you have a drain in place?please discuss with your physician. ? Please review the following information regarding postoperative care after breast surgery Exercises following breast surgery The following stretching exercises should be done two (2) to three (3) repetitions, three times daily to ensure you regain the mobility of the shoulder you had prior to surgery. Begin these stretching exercises the day after surgery. Arm Lifts This is the most important exercise for you to do. While standing (or sitting on the edge of a chair), lift both arms directly over your head. Your goal is to have your elbows ?touching? your ears. Some find it helpful to do this exercise while looking in a mirror. Arm Swings While standing, swing both arms back and forth from the shoulder (like the pendulum of a clock). Attempt to keep the elbows stiff. Increase the distance of the swing each time. Wall Climbing Stand facing a wall with feet close to the wall. Climb the fingertips of both hands up the wall then creep them down again. Attempt to go a little higher each time. If you will be having post-operative radiation therapy following your breast surgery, you will be instructed additional way to do this exercise. It is important to keep the rest of your body active. Deep breaths and coughing are necessary after surgery. You may use stairs and ride in a car. Most people may drive seven days after surgery. Shaving, etc. Be careful when shaving under the arm or putting on deodorant. It is a good idea to look in the mirror while doing either, this is to prevent irritating the incision. Blood draws, injections: It is preferred that you have blood drawn or have an injection in the operative arm. THIS IS A PRECAUTIONARY MEASURE. If it is necessary for you to have blood drawn using this arm, mention that you have had breast surgery and have had lymph nodes removed. Two weeks after surgery you will notice some changes: You may feel discomfort in the armpit and/or down the arm. This is the beginning of the inner tissue healing and at this time, discomfort is normal. Increase you exercise routine and take mild pain medication (Tylenol or acetaminophen). Warm showers may also provide discomfort. At this time, you may notice the incision feels thick and lumpy, this is normal. The scar tissue can be softened by massaging the area with a mild lotion containing vitamin e or pure lanolin. These products may be purchased over the counter at any pharmacy or grocery stor e. After several weeks, the scar tissue will soften. Stay aware form perfumed lotions, as the alcohol in them may irritate the skin. If you are having post- operative radiation, do not apply anything to your skin without firs consulting your radiation oncologist. Swelling If you should develop any swelling (collection of fluid) in your arm, hand, near the incision or under your arm, please contact your surgeon. Sometimes, elevating the entire arm on pillows (higher than the level of your heart) will reduce some of the swelling. Do not sleep on your surgical side. This places the area in a dependent position and increases swelling of the breast and chest wall. A small amount of swelling of the breast, chest wall and armpit is normal for the first month after surgery. Going home with a drain: Patients who have undergone breast surgery are sometimes discharged with an external drainage device. The care, emptying and recording of the drainage will be demonstrated to you during your teaching session with the nurse prior to discharge. If you develop a fever over 101 degrees F, increased drainage (more than 240 cc/8 oz) over a 24 hours period or increased pain not controlled by pain medication, please call your doctors office. The amount of fluid that is drained over a 24-hour period will gradually decrease. The color may change from polk re, to red orange, to straw color. Wh en you return for your post-operative visit four to seven days after surgery it is usually time to remove the drain. Discharge Orders/Prescriptions Prescriptions: New tramadol 50 mg tablet 50 mg PO BID PRN (Reason: pain) 3 Days Qty: 6 0RF Continued furosemide 40 mg tablet 40 mg PO DAILY sodium chloride 1,000 mg tablet,soluble 1,000 mg PO DAILY calcium carbonate [Calcium 500] 500 mg calcium (1,250 mg) tablet,chewable 1,000 mg PO DAILY cholecalciferol (vitamin D3) 50 mcg (2,000 unit) capsule 50 mcg PO DAILY ascorbate calcium (vitamin C) 500 mg tablet 500 mg PO DAILY mecobalamin (vitamin B12) 1,000 mcg lozenge 1,000 mcg PO DAILY Rx Instructions: allow to dissolve in mouth OR may chew lightly before swallowing ibuprofen 400 mg tablet 400 mg PO Q8H PRN (Reason: pain) spironolactone 50 mg tablet 50 mg PO BID Patient Comments: TAKE 1 TAB BY MOUTH TWICE A DAY acetaminophen 500 mg capsule 500 mg PO Q6H PRN (Reason: pain) levofloxacin 500 mg tablet 500 mg PO DAILY nadolol 20 mg tablet 20 mg PO DAILY Rx Instructions: TAKE 1 TABLET BY MOUTH EVERY DAY potassium chloride 20 mEq tablet,ER particles/crystals 20 meq PO DAILY pantoprazole 40 mg tablet,delayed release (DR/EC) 40 mg PO DAILY Qty: 90 1RF (DME) compress.stocking,knee,reg,lrg Misc See Rx Instructions .MEDSUPPLY Qty: 2 1RF Rx Instructions: wear daily for venous insufficiency 20-30 mmHg alendronate [Fosamax] 70 mg tablet 70 mg PO QWEEK Qty: 30 1RF Discontinued tramadol 50 mg tablet 25 mg PO BID PRN (Reason: pain) Referrals / Follow Up: Ernesto Rodriguez MD [Primary Care Provider] - Uday Brooks MD [Med Staff - Active Staff] - (Please call to schedule an appointment for Monday, 06/19.) Disposition Disposition (needs filled in before D/C Order can be placed): Home, Self Care
[2023-06-12] MEDS: Cefazolin 2 GM in 0.9% Normal Saline (100mL Bag) 100 ML IV (09:35)
[2023-06-12] MEDS: Isosulfan Blue 1% 5 ML Vial (09:50)
[2023-06-12] MEDS: Famotidine 20 MG in 0.9% NS 10 ML 300 MG IV (10:31)
--- NOTE | 2023-06-12 12:20 | OP.PCM_ITS ---
Report of Operation Date of Procedure: 06/12/23 Pre-Operative Diagnosis: Upper outer quadrant left breast invasive ductal carci noma Post-Operative Diagnosis: Same with axillary lymph node metastasis on sentinel node biopsy Surgery/Procedure Performed:: Left axillary sentinel lymph node blue dye nuclear tracer biopsy with subsequent left axillary lymph node dissection associated with total mastectomy combined to make this a modified radical mastectomy Description of Surgical Findings:: Timeout informed consent was obtained. 8-year-old female was taken the operating placed on the table underwent general esthesia the left arm was carefu lly wrapped with soft roll placed at right vertebral Ancef 2 g were given using venously. The patient preoperatively had undergone nuclear tracer marking. The left breast was prepped with alcohol 2 cc of isosulfan blue dye was injected and then massaged for 3 minutes left breast was sterilely prepped and draped a transverse elliptical incision was traced out the superior flaps were created with electrocautery and then the axilla was identified blue dye tracking was identified sentinel lymph nodes were dissected free to were submitted. Then the inferior flap was created lower inner part of the inferior flap slightly close to the skin edge substernally I placed a couple supporting sutures of 4-0 Monocryl. The sentinel node returned to the 1 lymph node macroscopically positive. I transected the breast tissue with the pectoralis fascia off the left pectoralis major hemostasis attained throughout with electrocautery and hemoclips and 3-0 Vicryl sutures. Then I had to convert to a level left 1 to left axillary lymph node dissection the axillary vein subscapularis chest wall and latissimus dorsi were used as margins as a dissected free of the axillary packet secured liters with hemoclips were indicated and electrocautery the intercostal cutaneous nerve to the upper arm was identified and preserved the plaque was dissected free and submitted for analysis Floseal was left in place in the left axilla. The left chest and axilla had previously been irrigated with sterile water. 2 stab incisions made inferior and lateral to the wound and 215 round drains were exited there were secured to the skin with 3-0 nylon vascular drain was shortened the skin flaps were then stitched to the chest wall with interrupted 3-0 Vicryl and subdermal tissues approximated with the same. Multiple sutures were applied until the skin edges were approximated. Steri- Strips Telfa bulky dry dressings applied. Sponge and instrument and needle counts were reported to the surgeon to be correct. Specimen left axillary sentinel lymph nodes. Left axillary level 1 and 2 lymph node dissection. Left total mastectomy. Drains 15 round DAGO x2. Blood loss less than 50 cc. She was taken to the recovery room in satisfied condition without apparent complication Synoptic Portion: Element Response Options Operation performed with curative intent. Yes Resection was performed within the boundaries of the axillary vein, chest wall (serratus anterior), and latissimus dorsi. Yes Nerves identified and preserved during dissection (select all that apply) Long thoracic nerve; Thoracodorsal nerve; Branches of the intercostobrachial nerves; Level III nodes were removed. No Synoptic Portion: Element Response Options Operation performed with curative intent. Yes Tracer(s) used to identify sentinel nodes in the upfront surgery (non- neoadjuvant) setting (select all that apply). Dye and radioactive tracer Tracer(s) used to identify sentinel nodes in the neoadjuvant setting (select all that apply). Not applicable All nodes (colored or non-colored) present at the end of a dye-filled lymphatic channel were removed. Yes All significantly radioactive nodes were removed. Yes All palpably suspicious nodes were removed. Yes Biopsy-proven positive nodes marked with clips prior to chemotherapy were identified and removed. Not applicable Surgeon: Uday Brooks Type of Anesthesia: General Anesthesiologist: Dalton Izaguirre
--- NOTE | 2023-06-12 14:40 | CASEMGMT ---
Discharge Planning A list of HH?providers including quality and resource use data and consistent with the patient's preferred geographic region, medical needs, and insurance network was created in [employer] [facility].? This list was provided to the RN MARIAA. Milagro Arrington, Discharge Planning Asst.
--- NOTE | 2023-06-12 15:14 | CASEMGMT ---
Addendum entered by Lucila Membreno 06/12/23 16:01: KAREN LEROY into pt room, pt lying in bed in no distress with dtr at bedside. Pt is agreeable to HHC services. 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 Pt states she typically uses a cane or rollator at home. She was I in bathing, dressing, meals and laundry and drives. Pt denies any further homegoing needs. Provided pt with a HHC list provided by dc assistant corporation counsel. Pt and dtr have chosen 1. [facility] 2. [facility] 3. [facility]. Requested referral to be sent to [facility] by dc assistant corporation counsel at this time. Original Note: Made aware that pt dtr would like to speak to RN MARIAA regarding HHC. Discussed general information with pt dtr in meeting space. She states that her father is ill and has a LVAD, she is an only child and trying to care for two ill parents. She states that her mother fell lastnight and she found her on the floor this morning when she went to pick her up for surgery. She asks what help is available. Discussed HHC and assistance they can provide as well as private duty. Pt dtr states that she has a list of private duty agencies that friends have suggested. She asks how to get help for her father and referred her to PCP. Pt dtr states she will go back to pt room and discuss with pt. She is aware that RN MARIAA will be in room to discuss care as well.
--- NOTE | 2023-06-12 15:54 | PCM.PN.SRG ---
Subjective Subjective Patient is with her daughter. She appears to be doing well. She has no specific complaints. Objective Data Objective Data Vital Signs: Vital Signs Temp Pulse Resp BP Pulse Ox O2 Del Method O2 Flow Rate 98.7 F 73 18 145/69 H 99 Nasal Cannula 2 06/12/23 14:18 06/12/23 14:18 06/12/23 14:18 06/12/23 14:18 06/12/23 14:18 06/12/23 14:18 06/12/23 14:18 Oxygen Flow Rate (L/min) 2 Oxygen Delivery Method Nasal Cannula Weight: 150 lb Body Mass Index (BMI) 26.5 Intake & Output: Intake and Output for Last 24 Hours 06/10/23 06/11/23 06/12/23 23:59 23:59 23:59 Intake Total 1120.0 / 1120.0 Output Total 72 / 72 Balance 1048.0 / 1048.0 Lab / Micro Data 06/08/23 15:30 06/08/23 15:30 Physical Exam Resp Resp Narrative: Sanguinous DAGO output noted Assessment & Plan Assessment/Plan (1) Breast cancer: QUALIFIERS: Breast location: unspecified site of breast Estrogen receptor status: positive Patient sex: female Laterality: left Qualified Code(s): C50.912 - Malignant neoplasm of unspecified site of left female breast; Z17.0 - Estrogen receptor positive status [ER+] PLAN: With the daughter present I went over post discharge instructions wound care management and drain management. The exact timing of her office follow-up will be determined by Kesha Hoover PA-C with tomorrow morning's appointment and evaluation regarding the amount of drain output. The patient is aware that a level 1/2 left axillary lymph node dissection was pursued because of a positive sentinel lymph node. Uday Brooks M.D., F.A.C.S.
--- NOTE | 2023-06-12 16:23 | CASEMGMT ---
Discharge Planning HH referral sent via [facility] to [facility]. Milagro Arrington, Discharge Planning Asst.
[2023-06-12] MEDS: traMADol 50 MG Tablet 25 MG PO ×2 (16:32→21:45)
[2023-06-12] MEDS: Acetaminophen 500 MG Tablet PO (21:45)
[2023-06-13 01:43] VITALS: BP 103/61; PULSE 67; RESP 16; TEMP 36.9; O2SAT 94
[2023-06-13 06:31] VITALS: BP 127/64; PULSE 65; RESP 16; TEMP 36.6; O2SAT 98
[2023-06-13] MEDS: Nadolol 20 MG Tablet PO (08:19)
[2023-06-13] MEDS: Potassium Chloride Oral Tablet 20 MEQ PO (08:19)
[2023-06-13] MEDS: Acetaminophen 500 MG Tablet PO (08:25)
[2023-06-13 08:29] VITALS: BP 139/69; PULSE 63; RESP 18; TEMP 36.5; O2SAT 98
--- NOTE | 2023-06-13 08:52 | PN.SURG_ITS ---
Subjective Subjective Patient is a 72 y/o F I am following s/p left mastectomy with left axillary lymph node dissection by Dr. Brooks on 06/12/23. Patient tolerated the procedure well. Patient notes very minimal amount of burning sensation in the left axilla. Patient denies nausea, vomiting, fever. She notes pain is well controlled with t ramadol. Objective Data Objective Data Vital Signs: Vital Signs Temp Pulse Resp BP Pulse Ox O2 Del Method O2 Flow Rate 97.7 F L 63 18 139/69 H 98 Room Air 2 06/13/23 08:29 06/13/23 08:29 06/13/23 08:29 06/13/23 08:29 06/13/23 08:29 06/13/23 08:29 06/12/23 14:18 Oxygen Flow Rate (L/min) 2 Oxygen Delivery Method Room Air Weight: 150 lb Body Mass Index (BMI) 26.5 Intake & Output: Intake and Output for Last 24 Hours 06/11/23 06/12/23 06/13/23 23:59 23:59 23:59 Intake Total 1120.0 / 1320.0 616.75 / 616.75 Output Total 512 / 512 60 / 60 Balance 608.0 / 808.0 556.75 / 556.75 Lab / Micro Data 06/08/23 15:30 06/08/23 15:30 Physical Exam Chest Chest Narrative: Left chest- incision c/d/i. Moderate amount of ecchymosis. No swelling noted. DAGO drains intact with serosanguineous fluid noted within the bulbs. Assessment & Plan Assessment/Plan (1) Breast cancer: QUALIFIERS: Breast location: unspecified site of breast Estrogen receptor status: positive Patient sex: female Laterality: left Qualified Code(s): C50.912 - Malignant neoplasm of unspecified site of left female breast; Z17.0 - Estrogen receptor positive status [ER+] PLAN: Patient recovering very well Patient's dressing will be changed prior to discharge this morning Drain teaching prior to discharge Patient to follow-up on Monday with me and Dr. Brooks for drain removal Ready for discharge today Discharge instructions were reviewed. Charges/Coding Visit Charges Inpatient E&M: 74506 Subs Hosp L1 (No charge; post-op)
--- NOTE | 2023-06-13 08:57 | CASEMGMT ---
Addendum entered by Lucila Membreno 06/13/23 13:09: KAREN CM into pt room, pt aware that HHC will start on Monday. Provided pt with CM contact information should she need this. She is aware that [facility] will reach out to her to schedule a time to be out on Monday. Pt denies any futher needs. Addendum entered by Lucila Membreno 06/13/23 13:02: Received notification from Renita at [facility], pt is accepted for SOC on Monday. Addendum entered by Lucila Membreno 06/13/23 11:04: Message to [facility] Renita in intake to check on status of referral as pt has a dc order in. Will await response. Original Note: [facility] has declined referral. TC to Renita at [facility], left vm with referral, will await decision to accept.
--- NOTE | 2023-06-13 09:59 | CASEMGMT ---
Met with patient to complete BELL form. BELL form explained to patietn who voiced understanding and signed form. Original form placed in pt?s chart and copy provided to patient. Milagro Arrington, Discharge Planning Asst.
[2023-06-13] MEDS: traMADol 50 MG Tablet 25 MG PO (12:03)
[2023-06-13 13:31] VITALS: BP 124/62; PULSE 74; RESP 18; TEMP 36.6; O2SAT 100
== END 2023-06-13 14:00 | disposition home health service (06) ==
LOC: ACINP 15:47 → MS3 15:47
PROVIDERS: Admitting Provider Surgery; PCP Internal Medicine; Referring Provider Surgery; Visit Provider Surgery
PROC: (CPT 19307; principal; 2023-06-12 10:15)
DX: C50.412 Malignant neoplasm of upper-outer quadrant of left female breast (principal); C77.3 Secondary and unspecified malignant neoplasm of axilla and upper limb lymph nodes; K74.60 Unspecified cirrhosis of liver; I65.21 Occlusion and stenosis of right carotid artery; I10 Essential (primary) hypertension; I87.2 Venous insufficiency (chronic) (peripheral); M54.40 Lumbago with sciatica, unspecified side; K42.9 Umbilical hernia without obstruction or gangrene; C44.92 Squamous cell carcinoma of skin, unspecified; Z17.0 Estrogen receptor positive status [ER+]; Z79.899 Other long term (current) drug therapy; K21.9 Gastro-esophageal reflux disease without esophagitis; E78.00 Pure hypercholesterolemia, unspecified
CPT/HCPCS: 19307; 00404; 36415; 38792; 71046; 80053; 85027; 85610; 85730; 88305; 88307; 88309; 88331; 88332; 88341; 88342; 93005; 94668; 97162; 97802; 99221; A4648; A9541; J7120; G0378; J2405; J3490; Q9968

== ENCOUNTER 2023-06-28 09:45 | Outpatient (RCR) | payer MEDICARE, OTHER, SELFPAY ==
[2023-06-04 00:29] VITALS: BP 125/50; PULSE 63; RESP 18; TEMP 35.9
[2023-06-14 10:08] VITALS: BP 142/58; PULSE 58; RESP 16; TEMP 36.1
--- NOTE | 2023-06-14 10:42 | PN.PCM_ITS ---
History of Present Illness Date of Service: 06/14/23 Chief Complaint: Follow-up on her right lower leg lateral area wound nonhealing since at least November. History of Wound: 72-year-old white female in [place] where she is living during the winter. She had a growth removed from her right lateral lower leg. She is still not sure if it is cancer or not. After finally getting through to the dermatology she found that they never sent a biopsy off. She saw her own doctor up here and she was referred to us from her and put on cephalexin. Recently she was taken off her Lasix and has terrible edema of her lower extremities and abdomen. Patient states she has gained 9 pounds Patient had been referred to dermatology and has returned after they did Mohs surgery on her right lateral lower leg. They state they got all the cancer out. We will reapply for EpiFix to restart her. We will also also refer to Dr. Galaviz for vascular problems she is having in her right lower leg. Her biggest complaint is that she is swelling a lot in her lower extremities. Worried about a blood clot Now she has breast cancer and is being seen by oncology at [facility] for that also. Progress of Wound: So yesterday she had a total left mastectomy. She was seen by Mohs surgeon last week and they reapplied a EpiFix to that right lateral lower leg. Measurements are about the same on it except that its more shallow looks good. She has another small open wound on her right lateral ankle is about the same size has some slough in it. She has then developed another avulsion laceration on her right upper arm from lifting her up and scratching her arm. Subjective Subjective Patient is in good spirits and doing well. She agrees with plan of action for all wound areas Objective Data Objective Data Right lateral lower leg we will add another EpiFix is healing well right lateral ankle is open and we will use the Fibracol there. She also has a lot of Aquacel extra will use Aquacel extra on her right upper arm with Adaptic. It seems to be a's more superficial wound Vital Signs: Vital Signs Temp Pulse Resp BP O2 Del Method 97 F L 58 L 16 142/58 H Room Air 06/14/23 10:08 06/14/23 10:08 06/14/23 10:08 06/14/23 10:08 06/14/23 10:08 Oxygen Delivery Method Room Air Physical Exam Const oriented x3 General Appearance: cooperative Exam Limitations: no limitations HEENT normocephalic Head and Scalp: normal to inspection Face and Sinus: normal facial exam Nose: external nose normal General Ear: hearing grossly impaired External Ear: external ears normal Mouth: oral and palatal mucosa normal Eyes PERRL General Eye: normal appearance of both eyes Neck full ROM General: normal visual inspection Resp normal respiratory effort Effort and Inspection: able to speak in complete sentences Auscultation: clear to auscultation bilaterally Cardio regular rate and regular rhythm Palpation: normal PMI Rate: regular rate Rhythm: regular rhythm GI Auscultation: normoactive bowel sounds Palpation: soft and no hepatosplenomegaly external exam normal Back/Spine Cervical Spine: cervical ROM normal Thoracic Spine / Upper Back: normal to inspection Lumbar Spine / Lower Back: normal to inspection Extremity normal to inspection General Extremity: normal exam except as noted Skin no rashes or lesions noted Neuro oriented x3 Psych Appearance: grossly normal Speech: normal speech Thought Content: normal thought content Judgement: judgement good Debridement Note Debridement Note Wound debrided: Right upper arm avulsion laceration Type of Debridement: Excisional debridement Anesthesia Used: 4% Lidocaine Solution and 5% Lidocaine Gel Depth: Down to and including healthy tissue and in the subcutaneous layer Percentage of wound debrided: 100 Instrument Used: 5mm curette Tissue Removed: Fibrin and devitalized tissue removed Severity: Fat Layer Exposed Amount of bleeding with debridement: Mild Bleeding Controlled with: Compression and gauze Patient tolerated procedure: Patient tolerated procedure well Post-Debridement Measurements and Additional Note: Post-Debridement Measurements/Treatment - Nurse 1 - General Ulcer Assessment Start: 06/14/23 10:07 Freq: Status: Active Protocol: WC.LOWLAURIET Activity Type Activity Date Activity User E-sign Co-sign Detail Recorded Client Recorded Date Recorded By Document 06/14/23 10:08 [facility] Desktop 06/14/23 10:16 [facility] 06/14/23 10:08 - Today's Visit Information Type of service Follow-up Visit (Physician/[employer] [employer] INSPECTOR ) Arrival Mode Ambulatory Transfer Assistance None Patient Identification Verified (Name & Yes ) Patient Requires Transmission-Based No Precautions Vital Signs Temperature (97.8 F-99.1 F) 97 F L Temperature Source Temporal Pulse Rate (60-100) 58 L Pulse Location Monitor Respiratory Rate (12-18) 16 Respiratory rate source Observation Oxygen Delivery Method Room Air Blood Pressure (90/60-120/80) 142/58 H Blood Pressure Mean (mm Hg) 86 Source Monitor Position Sitting Blood Pressure Location Right Arm Comment pt got out of hosp on post L MASTECTOMY History Since Last Visit- (Skip if this is Patient's initial visit) Have you changed medications since your No last visit? Any new allergies or adverse reactions No Had a fall/change in ADL's that may No increase risk of falls Signs or symptoms of abuse and/or No neglect since last visit Have you been in the hospital since your Yes last visit? Has dressing in place as prescribed Yes Has compression in place as prescribed Yes Has offloadiing in place as prescribed N/A Experienced any changes in pain level or No management Left Footwear Regular Shoe Right Footwear Regular Shoe Pain Scale: 0-10 Numeric Is Patient Pain Free? Yes WC - Nurse 1 - General Ulcer Measurement Start: 06/14/23 10:07 Freq: Status: Active Protocol: Activity Type Activity Date Activity User E-sign Co-sign Detail Recorded Client Recorded Date Recorded By Document 06/14/23 10:08 [facility] Desktop 06/14/23 10:16 [facility] 06/14/23 10:08 Wound Center Nurse 1 #4 right medial LE -Combined with other wound No -Current Size (cm) - Length 0.1 -Current Size (cm) - Width 0.1 -Current Size (cm) - Depth 0.1 -Total Square Cm 0.01 -Epithelialization Large 67-100% -Necrosis Amt Small (1-33%) -Necrotic Tissue Type Eschar -Texture (Elif-wound Skin Appearance) Assessed, Scarring -Moisture (Elif-wound Skin Appearance) Assessed,Dry/ Scaly -Color (Elif-wound Skin Appearance) Assessed -Temperature (Elif-wound Skin No Abnormality Appearance) (Pt Warm) -Tenderness on Palpation (Elif-wound No Skin Appearance) -Ulcer Cleansing Rinsed/ Irrigated with Saline -Foul Odor after Cleansing No -Anesthetic Used 5% Lidocaine Gel #3 right lateral ankle -Combined with other wound No -Current Size (cm) - Length 1 -Current Size (cm) - Width 0.6 -Current Size (cm) - Depth 0.2 -Total Square Cm 0.6 -Photo Taken No -Epithelialization Small 1-33% -Tunneling No -Undermining/Tunneling No -Circular Undermining No -Exudate Amt Medium -Exudate Type Serosanguineous -Wound Margin Distinct, Outline Attached -Granulation Amt None Present (0 %) -Slough/Fibrin Yes -Necrosis Amt Large (67-100%) -Necrotic Tissue Type Adherent Slough -Texture (Elif-wound Skin Appearance) Assessed, Scarring -Moisture (Elif-wound Skin Appearance) Assessed -Color (Elif-wound Skin Appearance) Assessed -Temperature (Elif-wound Skin No Abnormality Appearance) (Pt Warm) -Tenderness on Palpation (Elif-wound No Skin Appearance) -Ulcer Cleansing Rinsed/ Irrigated with Saline -Foul Odor after Cleansing No -Anesthetic Used 5% Lidocaine Gel #1- R LAT LE (P/O BASAL CELL CA) -Combined with other wound No -Current Size (cm) - Length 4.0 -Current Size (cm) - Width 3.7 -Current Size (cm) - Depth 0.2 -Total Square Cm 14.80 -Epithelialization Small 1-33% -Tunneling No -Undermining/Tunneling No -Circular Undermining No -Exudate Amt Large -Exudate Type Serosanguineous -Wound Margin Distinct, Outline Attached -Granulation Amt Large (67-100%) -Granulation Quality Red -Slough/Fibrin Yes -Necrosis Amt Medium (34-66%) -Necrotic Tissue Type Adherent Slough -Texture (Elif-wound Skin Appearance) Assessed, Scarring -Moisture (Elif-wound Skin Appearance) Assessed -Color (Elif-wound Skin Appearance) Assessed -Temperature (Elif-wound Skin No Abnormality Appearance) (Pt Warm) -Tenderness on Palpation (Elif-wound No Skin Appearance) -Ulcer Cleansing Soap and Water -Foul Odor after Cleansing No -Anesthetic Used 5% Lidocaine Gel WC - Nurse 2 - General Ulcer CM Notes Start: 06/14/23 10:07 Freq: Status: Active Protocol: Activity Type Activity Date Activity User E-sign Co-sign Detail Recorded Client Recorded Date Recorded By Document 06/14/23 10:26 [facility] Desktop 06/14/23 10:36 [facility] 06/14/23 10:26 Wound Center Nurse 2 #4 right medial LE -Time 10:28 -Correct Patient Yes -Correct Side, Site, Position Yes -Correct Procedure Yes -Procedure Performed No -Post Debridement (cm) - Length 0 -Post Debridement (cm) - Width 0 -Post Debridement (cm) - Depth 0 -Total Square (Post) (cm) 0 -Wound/Ulcer Outcome Not Healed # 5 Right upper arm -Time 10:31 -Correct Patient Yes -Correct Side, Site, Position Yes -Correct Procedure Yes -Procedure Performed Yes -Type of Procedure Debridement -Clinical Debridement Subcutaneous -Tissue Removed Subcutaneous -Post Debridement (cm) - Length 2.5 -Post Debridement (cm) - Width 3.0 -Post Debridement (cm) - Depth 0.1 -Total Square (Post) (cm) 7.50 -Area of Debridement (cm) - Length 2.5 -Area of Debridement (cm) - Width 3.0 -Total Square (Area) (cm) 7.50 -Tunneling No -Undermining/Tunneling No -Circular Undermining No -Wound/Ulcer Outcome Not Healed -Ulcer Cleansing Rinsed/ Irrigated with Saline -Foul Odor after Cleansing No -Bioengineered Tissue No -Bleeding Controlled with Pressure -Treatment Response Procedure Tolerated Well -Offloading No -Debridement - Subq, 1st 20sq cm No #3 right lateral ankle -Time 10:29 -Correct Patient Yes -Correct Side, Site, Position Yes -Correct Procedure Yes -Procedure Performed Yes -Type of Procedure Debridement -Clinical Debridement Subcutaneous -Tissue Removed Subcutaneous -Post Debridement (cm) - Length 1.0 -Post Debridement (cm) - Width 1.0 -Post Debridement (cm) - Depth 0.3 -Total Square (Post) (cm) 1.00 -Area of Debridement (cm) - Length 1.0 -Area of Debridement (cm) - Width 1.0 -Total Square (Area) (cm) 1.00 -Tunneling No -Undermining/Tunneling No -Circular Undermining No -Wound/Ulcer Outcome Not Healed -Ulcer Cleansing Rinsed/ Irrigated with Saline -Foul Odor after Cleansing No -Bioengineered Tissue No -Bleeding Controlled with Pressure -Treatment Response Procedure Tolerated Well -Offloading No -Debridement - Subq, 1st 20sq cm Yes #1- R LAT LE (P/O BASAL CELL CA) -Time 10:29 -Correct Patient Yes -Correct Side, Site, Position Yes -Correct Procedure Yes -Procedure Performed Yes -Type of Procedure Debridement -Clinical Debridement Subcutaneous -Tissue Removed Subcutaneous -Post Debridement (cm) - Length 4.0 -Post Debridement (cm) - Width 3.8 -Post Debridement (cm) - Depth 0.2 -Total Square (Post) (cm) 15.20 -Area of Debridement (cm) - Length 4.0 -Area of Debridement (cm) - Width 3.8 -Total Square (Area) (cm) 15.20 -Tunneling No -Undermining/Tunneling No -Circular Undermining No -Wound/Ulcer Outcome Not Healed -Ulcer Cleansing Rinsed/ Irrigated with Saline -Foul Odor after Cleansing No -Bioengineered Tissue Yes -Type of Bioengineered Tissue Epifix Mesh -Expiration Date 03/04/28 -Product Lot Number [id number] -Percent Used 100 -Lot number of Saline Used [id number] -Bleeding Controlled with Pressure -Treatment Response Procedure Tolerated Well -Offloading No -Debridement - Subq, 1st 20sq cm No -Apply Skin Sub - 1st 25 sq cm - Legs 1 -Epifix Mesh (per sq cm) 11 Pain Scale: 0-10 Numeric Is Patient Pain Free? Yes Additional Wound Wound debrided: Right lateral lower leg cancer Mohs surgeon open wound Type of Debridement: Excisional debridement Anesthesia Used: 5% Lidocaine Gel Depth: Down to and including healthy tissue and in the subcutaneous layer Percentage of wound debrided: 100 Instrument Used: 5mm curette Tissue Removed: Fibrin Severity: Fat Layer Exposed Amount of bleeding with debridement: Mild Bleeding Controlled with: Compression and gauze Patient tolerated procedure: Patient tolerated procedure well Additional Wound Wound debrided: Right lateral ankle wound venous Type of Debridement: Excisional debridement Anesthesia Used: 5% Lidocaine Gel Depth: Down to and including healthy tissue and in the subcutaneous layer Percentage of wound debrided: 100 Instrument Used: 3mm curette Tissue Removed: Fibrin and some slough Severity: Fat Layer Exposed Amount of bleeding with debridement: Mild Bleeding Controlled with: Compression and gauze Patient tolerated procedure: Patient tolerated procedure well Assessment/Plan Assessment/Plan (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: CODE(S): C44.721 - Squamous cell carcinoma of skin of unspecified lower limb, including hip QUALIFIERS: Laterality: right Qualified Code(s): C44.722 - Squamous cell carcinoma of skin of right lower limb, including hip PLAN: EpiFix #4 applied Covered with wound veil and Steri-Strips patient is to leave alone and not take off or shower on that leg (2) Venous ulcer of ankle: CODE(S): I83.003 - Varicose veins of unspecified lower extremity with ulcer of ankle; L97.309 - Non-pressure chronic ulcer of unspecified ankle with unspecified severity QUALIFIERS: Varicose vein presence: with varicose veins Laterality: right Non-pressure ulcer stage: limited to breakdown of skin Qualified Code(s): I83.013 - Varicose veins of right lower extremity with ulcer of ankle; L97.311 - Non-pressure chronic ulcer of right ankle limited to breakdown of skin PLAN: Refer to Dr. Galaviz for her right lower leg edema and abnormal venous ultrasounds. Obvious occlusions to her GSV's and she has discoloration to the leg with swelling and pain. (3) Non-pressure ulcer of right lower extremity: CODE(S): L97.919 - Non-pressure chronic ulcer of unspecified part of right lower leg with unspecified severity QUALIFIERS: Non-pressure ulcer stage: with fat layer exposed Qualified Code(s): L97.912 - Non-pressure chronic ulcer of unspecified part of right lower leg with fat layer exposed PLAN: Wash the right lateral ankle wounds with an antibacterial soap and water pat dry apply Fibracol moistened cover with gauze and dressings daily. Wear a double layer Tubigrip Follow-up in 1 week Continue antibiotic therapy for till done (4) Nonhealing nonsurgical wound: CODE(S): T14.8XXA - Other injury of unspecified body region, initial encounter PLAN: Wash right upper arm with antibacterial soap and water apply Aquacel extra to wound base moistened cover with Adaptic and gauze dressings every day
[2023-06-21 10:48] VITALS: BP 140/69; PULSE 68; RESP 16; TEMP 35.8
--- NOTE | 2023-06-21 11:38 | PCM.WC.PN ---
History of Present Illness Date of Service: 06/21/23 Chief Complaint: Follow-up on her right lower leg lateral area wound nonhealing since at least November. History of Wound: 72-year-old white female in [place] where she is living during the winter. She had a growth removed from her right lateral lower leg. She is still not sure if it is cancer or not. After finally getting through to the dermatology she found that they never sent a biopsy off. She saw her own doctor up here and she was referred to us from her and put on cephalexin. Recently she was taken off her Lasix and has terrible edema of her lower extremities and abdomen. Patient states she has gained 9 pounds Patient had been referred to dermatology and has returned after they did Mohs surgery on her right lateral lower leg. They state they got all the cancer out. We will reapply for EpiFix to restart her. We will also also refer to Dr. Galaviz for vascular problems she is having in her right lower leg. Her biggest complaint is that she is swelling a lot in her lower extremities. Worried about a blood clot Now she has breast cancer and is being seen by oncology at [facility] for that also. Progress of Wound: So yesterday she had a total left mastectomy. She was seen by Mohs surgeon last week and they reapplied a EpiFix to that right lateral lower leg. Measurements are about the same on it except that its more shallow looks good. She has another small open wound on her right lateral ankle is about the same size has some slough in it. She has then developed another avulsion laceration on her right upper arm from lifting her up and scratching her arm. The right forearm is resolved. All her measurements are smaller and she is doing very well with the epi fix. Subjective Subjective Patient is happy with outcomes Objective Data Objective Data Measurements are slightly smaller filling in nicely with new skin around the edges. Vital Signs: Vital Signs Temp Pulse Resp BP O2 Del Method 96.5 F L 68 16 140/69 H Room Air 06/21/23 10:48 06/21/23 10:48 06/21/23 10:48 06/21/23 10:48 06/21/23 10:48 Oxygen Delivery Method Room Air Physical Exam Const oriented x3 General Appearance: cooperative Exam Limitations: no limitations HEENT normocephalic Head and Scalp: normal to inspection Face and Sinus: normal facial exam Nose: external nose normal General Ear: hearing grossly impaired External Ear: external ears normal Mouth: oral and palatal mucosa normal Eyes PERRL General Eye: normal appearance of both eyes Neck full ROM General: normal visual inspection Resp normal respiratory effort Effort and Inspection: able to speak in complete sentences Auscultation: clear to auscultation bilaterally Cardio regular rate and regular rhythm Palpation: normal PMI Rate: regular rate Rhythm: regular rhythm GI Auscultation: normoactive bowel sounds Palpation: soft and no hepatosplenomegaly external exam normal Back/Spine Cervical Spine: cervical ROM normal Thoracic Spine / Upper Back: normal to inspection Lumbar Spine / Lower Back: normal to inspection Extremity normal to inspection General Extremity: normal exam except as noted Skin no rashes or lesions noted Neuro oriented x3 Psych Appearance: grossly normal Speech: normal speech Thought Content: normal thought content Judgement: judgement good Debridement Note Debridement Note Wound debrided: Right lateral leg wound from cancer removal Type of Debridement: Excisional debridement Anesthesia Used: 5% Lidocaine Gel Depth: Down to and including healthy tissue Percentage of wound debrided: 100 Instrument Used: 5mm curette Tissue Removed: Fibrin Severity: Limited To Skin Breakdown Amount of bleeding with debridement: Mild Bleeding Controlled with: Compression and gauze Patient tolerated procedure: Patient tolerated procedure well Post-Debridement Measurements and Additional Note: Post-Debridement Measurements/Treatment [facility] Nurse 1 - General Ulcer Assessment Start: 06/14/23 10:07 Freq: Status: Active Protocol: WC.LOWEXT Activity Type Activity Date Activity User E-sign Co-sign Detail Recorded Client Recorded Date Recorded By Document 06/14/23 10:08 [facility] [employer] 06/14/23 10:16 [facility] Document 06/21/23 10:48 [facility] [employer] 06/21/23 11:05 [facility] 06/14/23 06/21/23 10:08 10:48 - Today's Visit Information Type of service Follow-up Visit Nurse-only (Physician/ATTENDANCE OFFICER Visit ) Arrival Mode Ambulatory Ambulatory Transfer Assistance None None Patient Identification Verified (Name & Yes Yes ) Patient Requires Transmission-Based No No Precautions Vital Signs Temperature (97.8 F-99.1 F) 97 F L 96.5 F L Temperature Source Temporal Temporal Pulse Rate (60-100) 58 L 68 Pulse Location Monitor Monitor Respiratory Rate (12-18) 16 16 Respiratory rate source Observation Observation Oxygen Delivery Method Room Air Room Air Blood Pressure (90/60-120/80) 142/58 H 140/69 H Blood Pressure Mean (mm Hg) 86 92 Source Monitor Monitor Position Sitting Sitting Blood Pressure Location Right Arm Comment pt got out of hosp on post L MASTECTOMY History Since Last Visit- (Skip if this is Patient's initial visit) Have you changed medications since your No No last visit? Any new allergies or adverse reactions No No Had a fall/change in ADL's that may No No increase risk of falls Signs or symptoms of abuse and/or No No neglect since last visit Have you been in the hospital since your Yes No last visit? Has dressing in place as prescribed Yes Yes Has compression in place as prescribed Yes Yes Has offloadiing in place as prescribed N/A N/A Experienced any changes in pain level or No No management Left Footwear Regular Shoe Regular Shoe Right Footwear Regular Shoe Regular Shoe Pain Scale: 0-10 Numeric Is Patient Pain Free? Yes Yes WC - Nurse 1 - General Ulcer Measurement Start: 06/14/23 10:07 Freq: Status: Active Protocol: Activity Type Activity Date Activity User E-sign Co-sign Detail Recorded Client Recorded Date Recorded By Document 06/14/23 10:08 [employer] Desktop 06/14/23 10:16 [employer] Document 06/21/23 10:48 [employer] Desktop 06/21/23 11:05 [employer] 06/14/23 06/21/23 10:08 10:48 [facility] Nurse 1 # 5 Right upper arm -Combined with other wound No -Current Size (cm) - Length 0 -Current Size (cm) - Width 0 -Current Size (cm) - Depth 0 -Total Square Cm 0 -Epithelialization Large 67-100% -Tunneling No -Undermining/Tunneling No -Circular Undermining No -Texture (Elif-wound Skin Appearance) Assessed, Scarring -Moisture (Elif-wound Skin Appearance) Assessed -Color (Elif-wound Skin Appearance) Assessed -Temperature (Elif-wound Skin No Abnormality Appearance) (Pt Warm) -Tenderness on Palpation (Elif-wound No Skin Appearance) -Ulcer Cleansing Rinsed/ Irrigated with Saline -Foul Odor after Cleansing No #4 right medial LE -Combined with other wound No -Current Size (cm) - Length 0.1 -Current Size (cm) - Width 0.1 -Current Size (cm) - Depth 0.1 -Total Square Cm 0.01 -Epithelialization Large 67-100% -Necrosis Amt Small (1-33%) -Necrotic Tissue Type Eschar -Texture (Elif-wound Skin Appearance) Assessed, Scarring -Moisture (Elif-wound Skin Appearance) Assessed,Dry/ Scaly -Color (Elif-wound Skin Appearance) Assessed -Temperature (Elif-wound Skin No Abnormality Appearance) (Pt Warm) -Tenderness on Palpation (Elif-wound No Skin Appearance) -Ulcer Cleansing Rinsed/ Irrigated with Saline -Foul Odor after Cleansing No -Anesthetic Used 5% Lidocaine Gel #3 right lateral ankle -Combined with other wound No No -Current Size (cm) - Length 1 1 -Current Size (cm) - Width 0.6 0.8 -Current Size (cm) - Depth 0.2 0.3 -Total Square Cm 0.6 0.8 -Photo Taken No No -Epithelialization Small 1-33% Small 1-33% -Tunneling No No -Undermining/Tunneling No No -Circular Undermining No No -Exudate Amt Medium Medium -Exudate Type Serosanguineous Serosanguineous -Wound Margin Distinct, Distinct, Outline Outline Attached Attached -Granulation Amt None Present (0 Small (1-33%) %) -Granulation Quality Red -Slough/Fibrin Yes Yes -Necrosis Amt Large (67-100%) Large (67-100%) -Necrotic Tissue Type Adherent Slough Adherent Slough -Texture (Elif-wound Skin Appearance) Assessed, Assessed, Scarring Scarring -Moisture (Elif-wound Skin Appearance) Assessed Assessed,Dry/ Scaly -Color (Elif-wound Skin Appearance) Assessed Assessed -Temperature (Elif-wound Skin No Abnormality No Abnormality Appearance) (Pt Warm) (Pt Warm) -Tenderness on Palpation (Elif-wound No Yes Skin Appearance) -Ulcer Cleansing Rinsed/ Soap and Water Irrigated with Saline -Foul Odor after Cleansing No No -Anesthetic Used 5% Lidocaine 5% Lidocaine Gel Gel #1- R LAT LE (P/O BASAL CELL CA) -Combined with other wound No No -Current Size (cm) - Length 4.0 3.5 -Current Size (cm) - Width 3.7 3.6 -Current Size (cm) - Depth 0.2 0.1 -Total Square Cm 14.80 12.60 -Photo Taken No -Epithelialization Small 1-33% Small 1-33% -Tunneling No No -Undermining/Tunneling No No -Circular Undermining No No -Exudate Amt Large Medium -Exudate Type Serosanguineous Serosanguineous -Wound Margin Distinct, Distinct, Outline Outline Attached Attached -Granulation Amt Large (67-100%) Medium (34-66%) -Granulation Quality Red Red -Slough/Fibrin Yes Yes -Necrosis Amt Medium (34-66%) Medium (34-66%) -Necrotic Tissue Type Adherent Slough Adherent Slough -Texture (Elif-wound Skin Appearance) Assessed, Assessed, Scarring Scarring -Moisture (Elif-wound Skin Appearance) Assessed Assessed,Dry/ Scaly -Color (Elif-wound Skin Appearance) Assessed Assessed -Temperature (Elif-wound Skin No Abnormality No Abnormality Appearance) (Pt Warm) (Pt Warm) -Tenderness on Palpation (Elif-wound No Yes Skin Appearance) -Ulcer Cleansing Soap and Water Soap and Water -Foul Odor after Cleansing No No -Anesthetic Used 5% Lidocaine 5% Lidocaine Gel Gel Lower Limb Edema Present Yes Right Calf (cm) 34.2 Right Ankle (cm) 23.6 WC - Nurse 2 - General Ulcer CM Notes Start: 06/14/23 10:07 Freq: Status: Active Protocol: Activity Type Activity Date Activity User E-sign Co-sign Detail Recorded Client Recorded Date Recorded By Document 06/14/23 10:26 [facility] Desktop 06/14/23 10:36 MW Edit Result 06/14/23 10:26 MW (1) [id number] 06/16/23 15:15 PL Document 06/21/23 11:18 MW Desktop 06/21/23 11:25 MW (1) # 5 Right upper arm - Debridement - Subq, 1st 20sq cm => Yes #3 right lateral ankle - Debridement - Subq, 1st 20sq cm => No 06/14/23 06/21/23 10:26 11:18 Wound Center Nurse 2 # 5 Right upper arm -Time 10:31 11:18 -Correct Patient Yes Yes -Correct Side, Site, Position Yes Yes -Correct Procedure Yes Yes -Procedure Performed Yes No -Type of Procedure Debridement -Clinical Debridement Subcutaneous -Tissue Removed Subcutaneous -Post Debridement (cm) - Length 2.5 0 -Post Debridement (cm) - Width 3.0 0 -Post Debridement (cm) - Depth 0.1 0 -Total Square (Post) (cm) 7.50 0 -Area of Debridement (cm) - Length 2.5 -Area of Debridement (cm) - Width 3.0 -Total Square (Area) (cm) 7.50 -Tunneling No -Undermining/Tunneling No -Circular Undermining No -Wound/Ulcer Outcome Not Healed Healed- Epithelialized -Ulcer Cleansing Rinsed/ Irrigated with Saline -Foul Odor after Cleansing No -Bioengineered Tissue No -Bleeding Controlled with Pressure -Treatment Response Procedure Tolerated Well -Offloading No -Debridement - Subq, 1st 20sq cm Yes #4 right medial LE -Time 10:28 -Correct Patient Yes -Correct Side, Site, Position Yes -Correct Procedure Yes -Procedure Performed No -Post Debridement (cm) - Length 0 -Post Debridement (cm) - Width 0 -Post Debridement (cm) - Depth 0 -Total Square (Post) (cm) 0 -Wound/Ulcer Outcome Not Healed #3 right lateral ankle -Time 10:29 11:19 -Correct Patient Yes Yes -Correct Side, Site, Position Yes Yes -Correct Procedure Yes Yes -Procedure Performed Yes Yes -Type of Procedure Debridement Debridement -Clinical Debridement Subcutaneous Subcutaneous -Tissue Removed Subcutaneous Subcutaneous -Post Debridement (cm) - Length 1.0 0.8 -Post Debridement (cm) - Width 1.0 0.7 -Post Debridement (cm) - Depth 0.3 0.2 -Total Square (Post) (cm) 1.00 0.56 -Area of Debridement (cm) - Length 1.0 0.8 -Area of Debridement (cm) - Width 1.0 0.7 -Total Square (Area) (cm) 1.00 0.56 -Tunneling No No -Undermining/Tunneling No No -Circular Undermining No No -Wound/Ulcer Outcome Not Healed Not Healed -Ulcer Cleansing Rinsed/ Rinsed/ Irrigated with Irrigated with Saline Saline -Foul Odor after Cleansing No No -Bioengineered Tissue No No -Bleeding Controlled with Pressure Pressure -Treatment Response Procedure Procedure Tolerated Well Tolerated Well -Offloading No No -Debridement - Subq, 1st 20sq cm No Yes #1- R LAT LE (P/O BASAL CELL CA) -Time 10:29 11:19 -Correct Patient Yes Yes -Correct Side, Site, Position Yes Yes -Correct Procedure Yes Yes -Procedure Performed Yes Yes -Type of Procedure Debridement Debridement -Clinical Debridement Subcutaneous Subcutaneous -Tissue Removed Subcutaneous Subcutaneous -Post Debridement (cm) - Length 4.0 3.0 -Post Debridement (cm) - Width 3.8 3.5 -Post Debridement (cm) - Depth 0.2 0.1 -Total Square (Post) (cm) 15.20 10.50 -Area of Debridement (cm) - Length 4.0 3.0 -Area of Debridement (cm) - Width 3.8 3.5 -Total Square (Area) (cm) 15.20 10.50 -Tunneling No No -Undermining/Tunneling No No -Circular Undermining No No -Wound/Ulcer Outcome Not Healed Not Healed -Ulcer Cleansing Rinsed/ Rinsed/ Irrigated with Irrigated with Saline Saline -Foul Odor after Cleansing No No -Bioengineered Tissue Yes Yes -Type of Bioengineered Tissue Epifix Mesh Epifix Mesh -Expiration Date 03/04/28 03/04/28 -Product Lot Number [id number] -Percent Used 100 100 -Lot number of Saline Used [id number] -Bleeding Controlled with Pressure Pressure -Treatment Response Procedure Procedure Tolerated Well Tolerated Well -Offloading No No -Debridement - Subq, 1st 20sq cm No No -Apply Skin Sub - 1st 25 sq cm - Legs 1 1 -Epifix Mesh (per sq cm) 11 11 Pain Scale: 0-10 Numeric Is Patient Pain Free? Yes Yes WC - Nurse 3 - General Ulcer D/C NN Start: 06/14/23 10:07 Freq: Status: Active Protocol: Activity Type Activity Date Activity User E-sign Co-sign Detail Recorded Client Recorded Date Recorded By Document 06/14/23 10:52 MW Desktop 06/14/23 10:56 MW Document 06/21/23 11:32 GM Desktop 06/21/23 11:33 GM 06/14/23 06/21/23 10:52 11:32 Wound Care Center Nurse 3 # 5 Right upper arm -Ulcer Cleansing Not Cleansed -Foul Odor after Cleansing No -Negative Pressure Wound Therapy N/A -Primary Dressing Applied Aquacel Extra, Mepilex Border, NonAdherent Contact Layer -Other Dressing adaptic -Aquacel Extra 1 -Mepilex Border 1 #3 right lateral ankle -Ulcer Cleansing Not Cleansed Not Cleansed -Foul Odor after Cleansing No -Negative Pressure Wound Therapy N/A -Primary Dressing Applied Mepilex Border Aquacel Extra, Mepilex Border -Other Dressing aquacel extra epifixe -Aquacel Extra 1 -Mepilex Border 1 1 #1- R LAT LE (P/O BASAL CELL CA) -Ulcer Cleansing Not Cleansed -Foul Odor after Cleansing No -Negative Pressure Wound Therapy N/A -Primary Dressing Applied Mepilex Border -Other Dressing aquacel extra -Mepilex Border 1 Pain Scale: 0-10 Numeric Is Patient Pain Free? Yes Yes Teaching: Wound Center Compression Wraps & Stockings -Person Taught Patient -Teaching Method Discussion -Response to teaching Verbalize understanding Dressing Your Wound -Person Taught Patient Patient -Teaching Method Discussion Discussion -Response to teaching Verbalize Verbalize understanding understanding WC - Visit Discharge Discharge Condition Stable Stable Ambulatory Status Ambulatory Ambulatory,Cane Transportation Private Auto Private Auto Medication Reconcilliation completed & Yes provided to patient/care provider Clinical Summary of Care Provided Yes Additional Wound Wound debrided: Right lateral ankle wound from venous ulcer Type of Debridement: Excisional debridement Anesthesia Used: 5% Lidocaine Gel Depth: Down to and including healthy tissue Percentage of wound debrided: 100 Instrument Used: 3mm curette Tissue Removed: Fibrin some slough Severity: Fat Layer Exposed Amount of bleeding with debridement: Mild Bleeding Controlled with: Compression and gauze and Calcium Alginate Assessment/Plan Assessment/Plan (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: CODE(S): C44.721 - Squamous cell carcinoma of skin of unspecified lower limb, including hip QUALIFIERS: Laterality: right Qualified Code(s): C44.722 - Squamous cell carcinoma of skin of right lower limb, including hip PLAN: EpiFix #5 applied Covered with wound veil and Steri-Strips patient is to leave alone and not take off or shower on that leg (2) Venous ulcer of ankle: CODE(S): I83.003 - Varicose veins of unspecified lower extremity with ulcer of ankle; L97.309 - Non-pressure chronic ulcer of unspecified ankle with unspecified severity QUALIFIERS: Varicose vein presence: with varicose veins Laterality: right Non-pressure ulcer stage: limited to breakdown of skin Qualified Code(s): I83.013 - Varicose veins of right lower extremity with ulcer of ankle; L97.311 - Non-pressure chronic ulcer of right ankle limited to breakdown of skin PLAN: Refer to Dr. Galaviz for her right lower leg edema and abnormal venous ultrasounds. Obvious occlusions to her GSV's and she has discoloration to the leg with swelling and pain. (3) Non-pressure ulcer of right lower extremity: CODE(S): L97.919 - Non-pressure chronic ulcer of unspecified part of right lower leg with unspecified severity QUALIFIERS: Non-pressure ulcer stage: with fat layer exposed Qualified Code(s): L97.912 - Non-pressure chronic ulcer of unspecified part of right lower leg with fat layer exposed PLAN: Wash the right lateral ankle wounds with an antibacterial soap and water pat dry apply Fibracol moistened cover with gauze and dressings daily. Wear a double layer Tubigrip Follow-up in 1 week Continue antibiotic therapy for till done (4) Nonhealing nonsurgical wound: CODE(S): T14.8XXA - Other injury of unspecified body region, initial encounter PLAN: Wash right upper arm with antibacterial soap and water apply Aquacel extra to wound base moistened cover with Adaptic and gauze dressings every day
[2023-06-28 09:53] VITALS: BP 135/72; PULSE 76; RESP 18; TEMP 36.2
--- NOTE | 2023-06-28 13:04 | PCM.WC.PN ---
History of Present Illness Date of Service: 06/28/23 Chief Complaint: Follow-up on her right lower leg lateral area wound nonhealing since at least November. History of Wound: 72-year-old white female in [place] where she is living during the winter. She had a growth removed from her right lateral lower leg. She is still not sure if it is cancer or not. After finally getting through to the dermatology she found that they never sent a biopsy off. She saw her own doctor up here and she was referred to us from her and put on cephalexin. Recently she was taken off her Lasix and has terrible edema of her lower extremities and abdomen. Patient states she has gained 9 pounds Patient had been referred to dermatology and has returned after they did Mohs surgery on her right lateral lower leg. They state they got all the cancer out. We will reapply for EpiFix to restart her. We will also also refer to Dr. Galaviz for vascular problems she is having in her right lower leg. Her biggest complaint is that she is swelling a lot in her lower extremities. Worried about a blood clot Now she has breast cancer and is being seen by oncology at [facility] for that. She has left total mastectomy on 06/12/2023. She states she is healing well from that. Progress of Wound: Courtesy visit since Mariela is out of town. Right lateral leg ulcer is measuring smaller this week with the use of Epifix. Objective Data Objective Data Vital Signs: Vital Signs Temp Pulse Resp BP O2 Del Method 97.1 F L 76 18 135/72 H Room Air 06/28/23 09:53 06/28/23 09:53 06/28/23 09:53 06/28/23 09:53 06/21/23 10:48 Oxygen Delivery Method Room Air Charges/Coding Procedures Integumentary 150xxx-152xx: 53466 Skin sub graft trnk/arm/leg (Right lateral leg ulcer) Multi Select Codes Integumentary Integumentary CPT Codes: 28504 Nina subq tissue 20 sq cm/< (right lateral ankle ulcer) Debridement Note Debridement Note Wound debrided: Right lateral leg wound from cancer removal Laterality: Right Type of Debridement: Excisional debridement Anesthesia Used: 5% Lidocaine Gel Depth: Down to and including healthy tissue Percentage of wound debrided: 100 Instrument Used: 5mm curette Tissue Removed: Non viable tissue and slough Severity: Fat Layer Exposed Amount of bleeding with debridement: Mild Bleeding Controlled with: Compression and gauze Patient tolerated procedure: Patient tolerated procedure well Post-Debridement Measurements and Additional Note: Post-Debridement Measurements/Treatment WC - Nurse 1 - General Ulcer Assessment Start: 06/14/23 10:07 Freq: Status: Active Protocol: [email or web address].[email or web address] Activity Type Activity Date Activity User E-sign Co-sign Detail Recorded Client Recorded Date Recorded By Document 06/14/23 10:08 BMF Desktop 06/14/23 10:16 BMF Document 06/21/23 10:48 BMF Desktop 06/21/23 11:05 BMF Document 06/28/23 09:53 DL Desktop 06/28/23 10:02 DL 06/14/23 06/21/23 06/28/23 10:08 10:48 09:53 WC - Today's Visit Information Type of service Follow-up Visit Nurse-only Follow-up Visit (Physician/MESSENGER OFFICE Visit (Physician/MESSENGER OFFICE ) ) Arrival Mode Ambulatory Ambulatory Ambulatory Transfer Assistance None None None Patient Identification Verified (Name & Yes Yes Yes ) Patient Requires Transmission-Based No No No Precautions Vital Signs Temperature (97.8 F-99.1 F) 97 F L 96.5 F L 97.1 F L Temperature Source Temporal Temporal Temporal Pulse Rate (60-100) 58 L 68 76 Pulse Location Monitor Monitor Monitor Respiratory Rate (12-18) 16 16 18 Respiratory rate source Observation Observation Observation Oxygen Delivery Method Room Air Room Air Blood Pressure (90/60-120/80) 142/58 H 140/69 H 135/72 H Blood Pressure Mean (mm Hg) 86 92 93 Source Monitor Monitor Monitor Position Sitting Sitting Blood Pressure Location Right Arm Comment pt got out of hosp on post L MASTECTOMY History Since Last Visit- (Skip if this is Patient's initial visit) Have you changed medications since your No No No last visit? Any new allergies or adverse reactions No No No Had a fall/change in ADL's that may No No No increase risk of falls Signs or symptoms of abuse and/or No No No neglect since last visit Have you been in the hospital since your Yes No No last visit? Has dressing in place as prescribed Yes Yes Yes Has compression in place as prescribed Yes Yes No Has offloadiing in place as prescribed N/A N/A N/A Experienced any changes in pain level or No No No management Left Footwear Regular Shoe Regular Shoe Right Footwear Regular Shoe Regular Shoe Pain Scale: 0-10 Numeric Is Patient Pain Free? Yes Yes Yes WC - Nurse 1 - General Ulcer Measurement Start: 06/14/23 10:07 Freq: Status: Active Protocol: Activity Type Activity Date Activity User E-sign Co-sign Detail Recorded Client Recorded Date Recorded By Document 06/14/23 10:08 BMF Desktop 06/14/23 10:16 BMF Document 06/21/23 10:48 BMF Desktop 06/21/23 11:05 BMF Document 06/28/23 09:53 DL Desktop 06/28/23 10:02 DL 06/14/23 06/21/23 06/28/23 10:08 10:48 09:53 Wound Center Nurse 1 # 5 Right upper arm -Combined with other wound No -Current Size (cm) - Length 0 -Current Size (cm) - Width 0 -Current Size (cm) - Depth 0 -Total Square Cm 0 -Epithelialization Large 67-100% -Tunneling No -Undermining/Tunneling No -Circular Undermining No -Texture (Elif-wound Skin Appearance) Assessed, Scarring -Moisture (Elif-wound Skin Appearance) Assessed -Color (Elif-wound Skin Appearance) Assessed -Temperature (Elif-wound Skin No Abnormality Appearance) (Pt Warm) -Tenderness on Palpation (Elif-wound No Skin Appearance) -Ulcer Cleansing Rinsed/ Irrigated with Saline -Foul Odor after Cleansing No #4 right medial LE -Combined with other wound No -Current Size (cm) - Length 0.1 -Current Size (cm) - Width 0.1 -Current Size (cm) - Depth 0.1 -Total Square Cm 0.01 -Epithelialization Large 67-100% -Necrosis Amt Small (1-33%) -Necrotic Tissue Type Eschar -Texture (Elif-wound Skin Appearance) Assessed, Scarring -Moisture (Elif-wound Skin Appearance) Assessed,Dry/ Scaly -Color (Elif-wound Skin Appearance) Assessed -Temperature (Elif-wound Skin No Abnormality Appearance) (Pt Warm) -Tenderness on Palpation (Elif-wound No Skin Appearance) -Ulcer Cleansing Rinsed/ Irrigated with Saline -Foul Odor after Cleansing No -Anesthetic Used 5% Lidocaine Gel #3 right lateral ankle -Combined with other wound No No -Current Size (cm) - Length 1 1 0.8 -Current Size (cm) - Width 0.6 0.8 0.7 -Current Size (cm) - Depth 0.2 0.3 0.1 -Total Square Cm 0.6 0.8 0.56 -Photo Taken No No -Epithelialization Small 1-33% Small 1-33% -Tunneling No No -Undermining/Tunneling No No -Circular Undermining No No -Exudate Amt Medium Medium Small -Exudate Type Serosanguineous Serosanguineous Serosanguineous -Wound Margin Distinct, Distinct, Distinct, Outline Outline Outline Attached Attached Attached -Granulation Amt None Present (0 Small (1-33%) Medium (34-66%) %) -Granulation Quality Red Red -Slough/Fibrin Yes Yes -Necrosis Amt Large (67-100%) Large (67-100%) Medium (34-66%) -Necrotic Tissue Type Adherent Slough Adherent Slough Eschar -Structure Exposed N/A -Texture (Elif-wound Skin Appearance) Assessed, Assessed, Scarring Scarring Scarring -Moisture (Elif-wound Skin Appearance) Assessed Assessed,Dry/ No Abnormality Scaly -Color (Elif-wound Skin Appearance) Assessed Assessed Hemosiderin Staining -Temperature (Elif-wound Skin No Abnormality No Abnormality No Abnormality Appearance) (Pt Warm) (Pt Warm) (Pt Warm) -Tenderness on Palpation (Elif-wound No Yes No Skin Appearance) -Ulcer Cleansing Rinsed/ Soap and Water Soap and Water Irrigated with Saline -Foul Odor after Cleansing No No -Anesthetic Used 5% Lidocaine 5% Lidocaine 5% Lidocaine Gel Gel Gel #1- R LAT LE (P/O BASAL CELL CA) -Combined with other wound No No -Current Size (cm) - Length 4.0 3.5 3.2 -Current Size (cm) - Width 3.7 3.6 3.3 -Current Size (cm) - Depth 0.2 0.1 0.1 -Total Square Cm 14.80 12.60 10.56 -Photo Taken No -Epithelialization Small 1-33% Small 1-33% -Tunneling No No -Undermining/Tunneling No No -Circular Undermining No No -Exudate Amt Large Medium Medium -Exudate Type Serosanguineous Serosanguineous Serosanguineous -Wound Margin Distinct, Distinct, Distinct, Outline Outline Outline Attached Attached Attached -Granulation Amt Large (67-100%) Medium (34-66%) Large (67-100%) -Granulation Quality Red Red Red -Slough/Fibrin Yes Yes -Necrosis Amt Medium (34-66%) Medium (34-66%) Medium (34-66%) -Necrotic Tissue Type Adherent Slough Adherent Slough Adherent Slough -Structure Exposed N/A -Texture (Elif-wound Skin Appearance) Assessed, Assessed, Scarring Scarring Scarring -Moisture (Elif-wound Skin Appearance) Assessed Assessed,Dry/ No Abnormality Scaly -Color (Elif-wound Skin Appearance) Assessed Assessed Hemosiderin Staining -Temperature (Elif-wound Skin No Abnormality No Abnormality No Abnormality Appearance) (Pt Warm) (Pt Warm) (Pt Warm) -Tenderness on Palpation (Elif-wound No Yes No Skin Appearance) -Ulcer Cleansing Soap and Water Soap and Water Soap and Water -Foul Odor after Cleansing No No -Anesthetic Used 5% Lidocaine 5% Lidocaine 5% Lidocaine Gel Gel Gel Lower Limb Edema Present Yes Right Calf (cm) 34.2 35.5 Right Ankle (cm) 23.6 23 WC - Nurse 2 - General Ulcer CM Notes Start: 06/14/23 10:07 Freq: Status: Active Protocol: Activity Type Activity Date Activity User E-sign Co-sign Detail Recorded Client Recorded Date Recorded By Document 06/14/23 10:26 MW Desktop 06/14/23 10:36 MW Edit Result 06/14/23 10:26 MW (1) [id number] 06/16/23 15:15 PL Document 06/21/23 11:18 MW Desktop 06/21/23 11:25 MW Document 06/28/23 10:22 JF Laptop 06/28/23 10:27 JF (1) # 5 Right upper arm - Debridement - Subq, 1st 20sq cm => Yes #3 right lateral ankle - Debridement - Subq, 1st 20sq cm => No 06/14/23 06/21/23 06/28/23 10:26 11:18 10:22 Wound Center Nurse 2 # 5 Right upper arm -Time 10:31 11:18 -Correct Patient Yes Yes -Correct Side, Site, Position Yes Yes -Correct Procedure Yes Yes -Procedure Performed Yes No -Type of Procedure Debridement -Clinical Debridement Subcutaneous -Tissue Removed Subcutaneous -Post Debridement (cm) - Length 2.5 0 -Post Debridement (cm) - Width 3.0 0 -Post Debridement (cm) - Depth 0.1 0 -Total Square (Post) (cm) 7.50 0 -Area of Debridement (cm) - Length 2.5 -Area of Debridement (cm) - Width 3.0 -Total Square (Area) (cm) 7.50 -Tunneling No -Undermining/Tunneling No -Circular Undermining No -Wound/Ulcer Outcome Not Healed Healed- Epithelialized -Ulcer Cleansing Rinsed/ Irrigated with Saline -Foul Odor after Cleansing No -Bioengineered Tissue No -Bleeding Controlled with Pressure -Treatment Response Procedure Tolerated Well -Offloading No -Debridement - Subq, 1st 20sq cm Yes #4 right medial LE -Time 10:28 -Correct Patient Yes -Correct Side, Site, Position Yes -Correct Procedure Yes -Procedure Performed No -Post Debridement (cm) - Length 0 -Post Debridement (cm) - Width 0 -Post Debridement (cm) - Depth 0 -Total Square (Post) (cm) 0 -Wound/Ulcer Outcome Not Healed #3 right lateral ankle -Time 10:29 11:19 10:22 -Correct Patient Yes Yes Yes -Correct Side, Site, Position Yes Yes Yes -Correct Procedure Yes Yes Yes -Procedure Performed Yes Yes Yes -Type of Procedure Debridement Debridement Debridement -Clinical Debridement Subcutaneous Subcutaneous Subcutaneous -Tissue Removed Subcutaneous Subcutaneous Subcutaneous -Post Debridement (cm) - Length 1.0 0.8 0.9 -Post Debridement (cm) - Width 1.0 0.7 0.8 -Post Debridement (cm) - Depth 0.3 0.2 0.1 -Total Square (Post) (cm) 1.00 0.56 0.72 -Area of Debridement (cm) - Length 1.0 0.8 0.9 -Area of Debridement (cm) - Width 1.0 0.7 0.8 -Total Square (Area) (cm) 1.00 0.56 0.72 -Tunneling No No No -Undermining/Tunneling No No No -Circular Undermining No No No -Wound/Ulcer Outcome Not Healed Not Healed Not Healed -Ulcer Cleansing Rinsed/ Rinsed/ Rinsed/ Irrigated with Irrigated with Irrigated with Saline Saline Saline -Foul Odor after Cleansing No No No -Bioengineered Tissue No No No -Bleeding Controlled with Pressure Pressure Pressure -Treatment Response Procedure Procedure Procedure Tolerated Well Tolerated Well Tolerated Well -Offloading No No No -Debridement - Subq, 1st 20sq cm No Yes Yes #1- R LAT LE (P/O BASAL CELL CA) -Time 10:29 11:19 10:23 -Correct Patient Yes Yes Yes -Correct Side, Site, Position Yes Yes Yes -Correct Procedure Yes Yes Yes -Procedure Performed Yes Yes Yes -Type of Procedure Debridement Debridement Debridement -Clinical Debridement Subcutaneous Subcutaneous Subcutaneous -Tissue Removed Subcutaneous Subcutaneous Subcutaneous -Post Debridement (cm) - Length 4.0 3.0 3.3 -Post Debridement (cm) - Width 3.8 3.5 3.4 -Post Debridement (cm) - Depth 0.2 0.1 0.1 -Total Square (Post) (cm) 15.20 10.50 11.22 -Area of Debridement (cm) - Length 4.0 3.0 3.3 -Area of Debridement (cm) - Width 3.8 3.5 3.4 -Total Square (Area) (cm) 15.20 10.50 11.22 -Tunneling No No No -Undermining/Tunneling No No No -Circular Undermining No No No -Wound/Ulcer Outcome Not Healed Not Healed Not Healed -Ulcer Cleansing Rinsed/ Rinsed/ Rinsed/ Irrigated with Irrigated with Irrigated with Saline Saline Saline -Foul Odor after Cleansing No No No -Bioengineered Tissue Yes Yes Yes -Type of Bioengineered Tissue Epifix Mesh Epifix Mesh Epifix Mesh -Expiration Date 03/04/28 03/04/28 03/04/28 -Product Lot Number [id number] -Percent Used 100 100 100 -Lot number of Saline Used [id number] -Bleeding Controlled with Pressure Pressure Pressure -Treatment Response Procedure Procedure Procedure Tolerated Well Tolerated Well Tolerated Well -Offloading No No No -Debridement - Subq, 1st 20sq cm No No No -Apply Skin Sub - 1st 25 sq cm - Legs 1 1 1 -Epifix Mesh (per sq cm) 11 11 11 Pain Scale: 0-10 Numeric Is Patient Pain Free? Yes Yes Yes WC - Nurse 3 - General Ulcer D/C NN Start: 06/14/23 10:07 Freq: Status: Active Protocol: Activity Type Activity Date Activity User E-sign Co-sign Detail Recorded Client Recorded Date Recorded By Document 06/14/23 10:52 MW Desktop 06/14/23 10:56 MW Document 06/21/23 11:32 GM Desktop 06/21/23 11:33 GM Document 06/28/23 10:38 GM Desktop 06/28/23 10:45 GM 06/14/23 06/21/23 06/28/23 10:52 11:32 10:38 Wound Care Center Nurse 3 # 5 Right upper arm -Ulcer Cleansing Not Cleansed -Foul Odor after Cleansing No -Negative Pressure Wound Therapy N/A -Primary Dressing Applied Aquacel Extra, Mepilex Border, NonAdherent Contact Layer -Other Dressing adaptic -Aquacel Extra 1 -Mepilex Border 1 #3 right lateral ankle -Ulcer Cleansing Not Cleansed Not Cleansed Not Cleansed -Foul Odor after Cleansing No No -Negative Pressure Wound Therapy N/A -Primary Dressing Applied Mepilex Border Aquacel Extra, Mepilex Border Mepilex Border -Other Dressing aquacel extra epifixe -Aquacel Extra 1 -Mepilex Border 1 1 1 #1- R LAT LE (P/O BASAL CELL CA) -Ulcer Cleansing Not Cleansed Not Cleansed -Foul Odor after Cleansing No No -Negative Pressure Wound Therapy N/A -Primary Dressing Applied Mepilex Border Aquacel Extra, Mepilex Border -Other Dressing aquacel extra -Aquacel Extra 1 -Mepilex Border 1 1 Pain Scale: 0-10 Numeric Is Patient Pain Free? Yes Yes Yes Teaching: Wound Center Compression Wraps & Stockings -Person Taught Patient -Teaching Method Discussion -Response to teaching Verbalize understanding Dressing Your Wound -Person Taught Patient Patient Patient -Teaching Method Discussion Discussion Discussion, Demonstration -Response to teaching Verbalize Verbalize Verbalize understanding understanding understanding WC - Visit Discharge Discharge Condition Stable Stable Stable Ambulatory Status Ambulatory Ambulatory,Cane Ambulatory,Cane Transportation Private Auto Private Auto Private Auto Medication Reconcilliation completed & Yes Yes provided to patient/care provider Clinical Summary of Care Provided Yes Yes Additional Wound Wound debrided: Right lateral ankle wound from venous ulcer Laterality: Right Type of Debridement: Excisional debridement Anesthesia Used: 5% Lidocaine Gel Depth: Down to and including healthy tissue and in the subcutaneous layer Percentage of wound debrided: 100 Instrument Used: 3mm curette Tissue Removed: Non viable tissue and slough Severity: Fat Layer Exposed Amount of bleeding with debridement: Mild Bleeding Controlled with: Compression and gauze Assessment/Plan Assessment/Plan (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: CODE(S): C44.721 - Squamous cell carcinoma of skin of unspecified lower limb, including hip QUALIFIERS: Laterality: right Qualified Code(s): C44.722 - Squamous cell carcinoma of skin of right lower limb, including hip PLAN: EpiFix #6 applied Covered with wound veil and Steri-Strips patient is to leave alone and not take off or shower on that leg (2) Venous ulcer of ankle: CODE(S): I83.003 - Varicose veins of unspecified lower extremity with ulcer of ankle; L97.309 - Non-pressure chronic ulcer of unspecified ankle with unspecified severity QUALIFIERS: Varicose vein presence: with varicose veins Laterality: right Non-pressure ulcer stage: limited to breakdown of skin Qualified Code(s): I83.013 - Varicose veins of right lower extremity with ulcer of ankle; L97.311 - Non-pressure chronic ulcer of right ankle limited to breakdown of skin PLAN: Refer to Dr. Galaviz for her right lower leg edema and abnormal venous ultrasounds. Obvious occlusions to her GSV's and she has discoloration to the leg with swelling and pain. (3) Non-pressure ulcer of right lower extremity: CODE(S): L97.919 - Non-pressure chronic ulcer of unspecified part of right lower leg with unspecified severity QUALIFIERS: Non-pressure ulcer stage: with fat layer exposed Qualified Code(s): L97.912 - Non-pressure chronic ulcer of unspecified part of right lower leg with fat layer exposed PLAN: Wash the right lateral ankle wounds with an antibacterial soap and water pat dry apply Fibracol moistened cover with gauze and dressings daily. Wear a double layer Tubigrip Follow-up in 1 week Continue antibiotic therapy for till done (4) Nonhealing nonsurgical wound: CODE(S): T14.8XXA - Other injury of unspecified body region, initial encounter PLAN: Wash right upper arm with antibacterial soap and water apply Aquacel extra to wound base moistened cover with Adaptic and gauze dressings every day
== END 2023-07-04 23:59 | disposition home or self-care (01) ==
LOC: WC 09:45
PROVIDERS: PCP Internal Medicine; Referring Provider Nurse Practitioner; Visit Provider Nurse Practitioner
DX: I83.013 Varicose veins of right lower extremity with ulcer of ankle (principal); L97.311 Non-pressure chronic ulcer of right ankle limited to breakdown of skin; C44.722 Squamous cell carcinoma of skin of right lower limb, including hip; R60.0 Localized edema; M79.89 Other specified soft tissue disorders; S41.111A Laceration without foreign body of right upper arm, initial encounter; X58.XXXA Exposure to other specified factors, initial encounter; T14.8XXA Other injury of unspecified body region, initial encounter
CPT/HCPCS: 11042; 15271; Q4186

== ENCOUNTER 2023-08-02 10:30 | Outpatient (RCR) | payer MEDICARE, OTHER, SELFPAY ==
[2023-07-05 00:44] VITALS: BP 135/72; PULSE 76; RESP 18; TEMP 36.2
[2023-07-05 09:27] VITALS: BP 87/63; PULSE 69; TEMP 36.4
--- NOTE | 2023-07-05 12:14 | PCM.WC.PN ---
History of Present Illness Date of Service: 07/05/23 Chief Complaint: Follow-up on her right lower leg lateral area wound nonhealing since at least November. History of Wound: 72-year-old white female in [place] where she is living during the winter. She had a growth removed from her right lateral lower leg. She is still not sure if it is cancer or not. After finally getting through to the dermatology she found that they never sent a biopsy off. She saw her own doctor up here and she was referred to us from her and put on cephalexin. Recently she was taken off her Lasix and has terrible edema of her lower extremities and abdomen. Patient states she has gained 9 pounds Patient had been referred to dermatology and has returned after they did Mohs surgery on her right lateral lower leg. They state they got all the cancer out. We will reapply for EpiFix to restart her. We will also also refer to Dr. Galaviz for vascular problems she is having in her right lower leg. Her biggest complaint is that she is swelling a lot in her lower extremities. Worried about a blood clot Now she has breast cancer and is being seen by oncology at [facility] for that. She has left total mastectomy on 06/12/2023. She states she is healing well from that. Progress of Wound: Right lateral lower leg is filling in nicely with the epi fixes and healing well the right ankle is also still measuring larger but depth is better filling and. Subjective Subjective Patient is weak and the cancer of the breast is getting to her with all the chemo treatments Objective Data Objective Data We will continue with the EpiFix she will get #7 today Vital Signs: Vital Signs Temp Pulse Resp BP O2 Del Method 97.5 F L 69 18 87/63 L Room Air 07/05/23 09:27 07/05/23 09:27 07/05/23 00:44 07/05/23 09:27 07/05/23 09:27 Oxygen Delivery Method Room Air Lab / Micro Data Attestation: I reviewed the patient's lab results. Debridement Note Debridement Note Wound debrided: Right lateral leg wound from cancer removal Laterality: Right Type of Debridement: Excisional debridement Anesthesia Used: 5% Lidocaine Gel Depth: Down to and including healthy tissue Percentage of wound debrided: 100 Instrument Used: 5mm curette Tissue Removed: Non viable tissue and slough Severity: Fat Layer Exposed Amount of bleeding with debridement: Mild Bleeding Controlled with: Compression and gauze Patient tolerated procedure: Patient tolerated procedure well Post-Debridement Measurements and Additional Note: Post-Debridement Measurements/Treatment HERMILA - Nurse 1 - General Ulcer Assessment Start: 07/05/23 09:27 Freq: Status: Active Protocol: SAHIL Activity Type Activity Date Activity User E-sign Co-sign Detail Recorded Client Recorded Date Recorded By Document 07/05/23 09:27 Desktop 07/05/23 09:44 07/05/23 09:27 WC - Today's Visit Information Type of service Follow-up Visit (Physician/IMAGING ENGINEER ) Arrival Mode Ambulatory,Cane Patient Identification Verified (Name & Yes ) Patient Requires Transmission-Based No Precautions Vital Signs Temperature (97.8 F-99.1 F) 97.5 F L Temperature Source Temporal Pulse Rate (60-100) 69 Pulse Location Monitor Oxygen Delivery Method Room Air Blood Pressure (90/60-120/80) 87/63 L Blood Pressure Mean (mm Hg) 71 Source Monitor Position Semi-Fowlers Blood Pressure Location Right Arm History Since Last Visit- (Skip if this is Patient's initial visit) Have you changed medications since your No last visit? Any new allergies or adverse reactions No Had a fall/change in ADL's that may No increase risk of falls Signs or symptoms of abuse and/or No neglect since last visit Have you been in the hospital since your No last visit? Has dressing in place as prescribed Yes Has compression in place as prescribed Yes Has offloadiing in place as prescribed No Experienced any changes in pain level or No management Left Footwear Regular Shoe Right Footwear Regular Shoe Pain Scale: 0-10 Numeric Is Patient Pain Free? Yes Teaching: Wound Center Dressing Your Wound -Person Taught Patient -Teaching Method Discussion -Response to teaching Verbalize understanding HERMILA - Nurse 1 - General Ulcer Measurement Start: 07/05/23 09:27 Freq: Status: Active Protocol: Activity Type Activity Date Activity User E-sign Co-sign Detail Recorded Client Recorded Date Recorded By Document 07/05/23 09:27 PF [email or web address] 07/05/23 09:44 07/05/23 09:27 Wound Center Nurse 1 #3 right lateral ankle -Combined with other wound No -Current Size (cm) - Length 1.0 -Current Size (cm) - Width 0.8 -Current Size (cm) - Depth 0.1 -Total Square Cm 0.80 -Date of Last Picture (Recall this 07/05/23 field) -Photo Taken Yes -Epithelialization Medium 34-66% -Tunneling No -Undermining/Tunneling No -Circular Undermining No -Exudate Amt Large -Exudate Type Yellow/Green -Wound Margin Distinct, Outline Attached -Granulation Amt Small (1-33%) -Necrotic Tissue Type Adherent Slough -Structure Exposed N/A -Texture (Elif-wound Skin Appearance) Assessed, Scarring -Moisture (Elif-wound Skin Appearance) Assessed -Color (Elif-wound Skin Appearance) Assessed -Tenderness on Palpation (Elif-wound Yes Skin Appearance) -Ulcer Cleansing Soap and Water -Foul Odor after Cleansing No -Anesthetic Used 5% Lidocaine Gel #1- R LAT LE (P/O BASAL CELL CA) -Combined with other wound No -Current Size (cm) - Length 3.0 -Current Size (cm) - Width 3.2 -Current Size (cm) - Depth 0.2 -Total Square Cm 9.60 -Date of Last Picture (Recall this 07/05/23 field) -Photo Taken Yes -Epithelialization Small 1-33% -Tunneling No -Undermining/Tunneling No -Circular Undermining No -Exudate Amt Large -Exudate Type Serosanguineous -Wound Margin Distinct, Outline Attached -Granulation Amt Large (67-100%) -Granulation Quality Red -Necrosis Amt Small (1-33%) -Necrotic Tissue Type Adherent Slough -Structure Exposed N/A -Texture (Elif-wound Skin Appearance) Assessed -Moisture (Elif-wound Skin Appearance) Assessed -Color (Elif-wound Skin Appearance) Assessed -Temperature (Elif-wound Skin No Abnormality Appearance) (Pt Warm) -Tenderness on Palpation (Elif-wound Yes Skin Appearance) -Ulcer Cleansing Soap and Water -Foul Odor after Cleansing No -Anesthetic Used 5% Lidocaine Gel Lower Limb Edema Present Yes Right Calf (cm) 36 Right Ankle (cm) 25.8 WC - Nurse 2 - General Ulcer CM Notes Start: 07/05/23 09:27 Freq: Status: Active Protocol: Activity Type Activity Date Activity User E-sign Co-sign Detail Recorded Client Recorded Date Recorded By Document 07/05/23 09:47 MW Desktop 07/05/23 09:54 07/05/23 09:47 Wound Center Nurse 2 #3 right lateral ankle -Time 09:51 -Correct Patient Yes -Correct Side, Site, Position Yes -Correct Procedure Yes -Procedure Performed Yes -Type of Procedure Debridement -Clinical Debridement Subcutaneous -Tissue Removed Subcutaneous -Post Debridement (cm) - Length 1.0 -Post Debridement (cm) - Width 1.0 -Post Debridement (cm) - Depth 0.2 -Total Square (Post) (cm) 1.00 -Area of Debridement (cm) - Length 1.0 -Area of Debridement (cm) - Width 1.0 -Total Square (Area) (cm) 1.00 -Tunneling No -Undermining/Tunneling No -Circular Undermining No -Wound/Ulcer Outcome Not Healed -Ulcer Cleansing Rinsed/ Irrigated with Saline -Foul Odor after Cleansing No -Bioengineered Tissue No -Bleeding Controlled with Pressure -Treatment Response Procedure Tolerated Well -Offloading No -Debridement - Subq, 1st 20sq cm Yes #1- R LAT LE (P/O BASAL CELL CA) -Time 09:52 -Correct Patient Yes -Correct Side, Site, Position Yes -Correct Procedure Yes -Procedure Performed Yes -Type of Procedure Debridement -Clinical Debridement Subcutaneous -Tissue Removed Subcutaneous -Post Debridement (cm) - Length 2.7 -Post Debridement (cm) - Width 3.0 -Post Debridement (cm) - Depth 0.1 -Total Square (Post) (cm) 8.10 -Area of Debridement (cm) - Length 2.7 -Area of Debridement (cm) - Width 3.0 -Total Square (Area) (cm) 8.10 -Tunneling No -Undermining/Tunneling No -Circular Undermining No -Wound/Ulcer Outcome Not Healed -Ulcer Cleansing Rinsed/ Irrigated with Saline -Foul Odor after Cleansing No -Bioengineered Tissue Yes -Type of Bioengineered Tissue Epifix Mesh -Expiration Date 03/04/28 -Product Lot Number [id number] -Percent Used 100 -Lot number of Saline Used [id number] -Bleeding Controlled with Pressure -Treatment Response Procedure Tolerated Well -Offloading No -Debridement - Subq, 1st 20sq cm No -Apply Skin Sub - 1st 25 sq cm - Legs 1 -Epifix Mesh (per sq cm) 11 Pain Scale: 0-10 Numeric Is Patient Pain Free? Yes WC - Nurse 3 - General Ulcer D/C NN Start: 07/05/23 09:27 Freq: Status: Active Protocol: Activity Type Activity Date Activity User E-sign Co-sign Detail Recorded Client Recorded Date Recorded By Document 07/05/23 10:04 Desktop 07/05/23 10:06 07/05/23 10:04 Wound Care Center Nurse 3 #3 right lateral ankle -Ulcer Cleansing Not Cleansed -Foul Odor after Cleansing No -Negative Pressure Wound Therapy N/A -Aquacel Extra 1 -Mepilex Border 1 #1- R LAT LE (P/O BASAL CELL CA) -Ulcer Cleansing Not Cleansed -Foul Odor after Cleansing No -Primary Dressing Applied Mepilex Border -Mepilex Border 1 Pain Scale: 0-10 Numeric Is Patient Pain Free? Yes Teaching: Wound Center Compression Wraps & Stockings -Person Taught Patient -Teaching Method Discussion -Response to teaching Verbalize understanding Dressing Your Wound -Person Taught Patient -Teaching Method Discussion -Response to teaching Verbalize understanding WC - Visit Discharge Discharge Condition Stable Ambulatory Status Ambulatory,Cane Medication Reconcilliation completed & Yes provided to patient/care provider Clinical Summary of Care Provided Yes Additional Wound Wound debrided: Right lateral ankle wound from venous ulcer Laterality: Right Type of Debridement: Excisional debridement Anesthesia Used: 5% Lidocaine Gel Depth: Down to and including healthy tissue and in the subcutaneous layer Percentage of wound debrided: 100 Instrument Used: 3mm curette Tissue Removed: Non viable tissue and slough Severity: Fat Layer Exposed Amount of bleeding with debridement: Mild Bleeding Controlled with: Compression and gauze Assessment/Plan Assessment/Plan (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: CODE(S): C44.721 - Squamous cell carcinoma of skin of unspecified lower limb, including hip QUALIFIERS: Laterality: right Qualified Code(s): C44.722 - Squamous cell carcinoma of skin of right lower limb, including hip PLAN: EpiFix #7applied Covered with wound veil and Steri-Strips patient is to leave alone and not take off or shower on that leg (2) Venous ulcer of ankle: CODE(S): I83.003 - Varicose veins of unspecified lower extremity with ulcer of ankle; L97.309 - Non-pressure chronic ulcer of unspecified ankle with unspecified severity QUALIFIERS: Varicose vein presence: with varicose veins Laterality: right Non-pressure ulcer stage: limited to breakdown of skin Qualified Code(s): I83.013 - Varicose veins of right lower extremity with ulcer of ankle; L97.311 - Non-pressure chronic ulcer of right ankle limited to breakdown of skin PLAN: Refer to Dr. Galaviz for her right lower leg edema and abnormal venous ultrasounds. Obvious occlusions to her GSV's and she has discoloration to the leg with swelling and pain. (3) Non-pressure ulcer of right lower extremity: CODE(S): L97.919 - Non-pressure chronic ulcer of unspecified part of right lower leg with unspecified severity QUALIFIERS: Non-pressure ulcer stage: with fat layer exposed Qualified Code(s): L97.912 - Non-pressure chronic ulcer of unspecified part of right lower leg with fat layer exposed PLAN: Wash the right lateral ankle wounds with an antibacterial soap and water pat dry apply Fibracol moistened cover with gauze and dressings daily. Wear a double layer Tubigrip Follow-up in 1 week Continue antibiotic therapy for till done (4) Nonhealing nonsurgical wound: CODE(S): T14.8XXA - Other injury of unspecified body region, initial encounter PLAN: Wash right upper arm with antibacterial soap and water apply Aquacel extra to wound base moistened cover with Adaptic and gauze dressings every day
[2023-07-12 10:27] VITALS: BP 127/54; PULSE 69; TEMP 35.7
--- NOTE | 2023-07-12 16:19 | PN.PCM_ITS ---
History of Present Illness Date of Service: 07/12/23 Chief Complaint: Follow-up on her right lower leg lateral area wound nonhealing since at least November. History of Wound: 72-year-old white female in [place] where she is living during the winter. She had a growth removed from her right lateral lower leg. She is still not sure if it is cancer or not. After finally getting through to the dermatology she found that they never sent a biopsy off. She saw her own doctor up here and she was referred to us from her and put on cephalexin. Recently she was taken off her Lasix and has terrible edema of her lower extremities and abdomen. Patient states she has gained 9 pounds Patient had been referred to dermatology and has returned after they did Mohs surgery on her right lateral lower leg. They state they got all the cancer out. We will reapply for EpiFix to restart her. We will also also refer to Dr. Galaviz for vascular problems she is having in her right lower leg. Her biggest complaint is that she is swelling a lot in her lower extremities. Worried about a blood clot Now she has breast cancer and is being seen by oncology at [facility] for that. She has left total mastectomy on 06/12/2023. She states she is healing well from that. Progress of Wound: Right lateral lower leg is filling in nicely with the epi fix and healing well the right ankle is smaller in size. Objective Data Objective Data Vital Signs: Vital Signs Temp Pulse Resp BP O2 Del Method 96.3 F L 69 18 127/54 H Room Air 07/12/23 10:27 07/12/23 10:27 07/05/23 00:44 07/12/23 10:27 07/12/23 10:27 Oxygen Delivery Method Room Air Charges/Coding Procedures Integumentary 150xxx-152xx: 15777 Skin sub graft trnk/arm/leg (Right lateral leg ulcer) Multi Select Codes Integumentary Integumentary CPT Codes: 11511 Nina subq tissue 20 sq cm/< (right lateral ankle) Debridement Note Debridement Note Wound debrided: Right lateral leg ulcer Laterality: Right Type of Debridement: Excisional debridement Anesthesia Used: 5% Lidocaine Gel Depth: Down to and including healthy tissue Percentage of wound debrided: 100 Instrument Used: 5mm curette Tissue Removed: Non viable tissue and slough Severity: Fat Layer Exposed Amount of bleeding with debridement: Mild Bleeding Controlled with: Compression and gauze Patient tolerated procedure: Patient tolerated procedure well Post-Debridement Measurements and Additional Note: Post-Debridement Measurements/Treatment HERMILA - Nurse 1 - General Ulcer Assessment Start: 07/05/23 09:27 Freq: Status: Active Protocol: SAHIL Activity Type Activity Date Activity User E-sign Co-sign Detail Recorded Client Recorded Date Recorded By Document 07/05/23 09:27 Desktop 07/05/23 09:44 Document 07/12/23 10:27 Desktop 07/12/23 10:37 GM 07/05/23 07/12/23 09:27 10:27 WC - Today's Visit Information Type of service Follow-up Visit Follow-up Visit (Physician/FINANCIAL ANALYSIS MANAGER (Physician/FINANCIAL ANALYSIS MANAGER ) ) Arrival Mode Ambulatory,Cane Ambulatory,Cane Patient Identification Verified (Name & Yes Yes ) Patient Requires Transmission-Based No No Precautions Vital Signs Temperature (97.8 F-99.1 F) 97.5 F L 96.3 F L Temperature Source Temporal Temporal Pulse Rate (60-100) 69 69 Pulse Location Monitor Monitor Oxygen Delivery Method Room Air Room Air Blood Pressure (90/60-120/80) 87/63 L 127/54 H Blood Pressure Mean (mm Hg) 71 78 Source Monitor Monitor Position Semi-Fowlers Sitting Blood Pressure Location Right Arm Right Arm History Since Last Visit- (Skip if this is Patient's initial visit) Have you changed medications since your No No last visit? Any new allergies or adverse reactions No No Had a fall/change in ADL's that may No No increase risk of falls Signs or symptoms of abuse and/or No No neglect since last visit Have you been in the hospital since your No No last visit? Has dressing in place as prescribed Yes Yes Has compression in place as prescribed Yes Yes Has offloadiing in place as prescribed No No Experienced any changes in pain level or No No management Left Footwear Regular Shoe Right Footwear Regular Shoe Pain Scale: 0-10 Numeric Is Patient Pain Free? Yes Yes Teaching: Wound Center Dressing Your Wound -Person Taught Patient -Teaching Method Discussion -Response to teaching Verbalize understanding HERMILA - Nurse 1 - General Ulcer Measurement Start: 07/05/23 09:27 Freq: Status: Active Protocol: Activity Type Activity Date Activity User E-sign Co-sign Detail Recorded Client Recorded Date Recorded By Document 07/05/23 09:27 GM Desktop 07/05/23 09:44 GM Document 07/12/23 10:27 Desktop 07/12/23 10:37 07/05/23 07/12/23 09:27 10:27 Wound Center Nurse 1 #3 right lateral ankle -Combined with other wound No -Current Size (cm) - Length 1.0 -Current Size (cm) - Width 0.8 -Current Size (cm) - Depth 0.1 -Total Square Cm 0.80 -Date of Last Picture (Recall this 07/05/23 field) -Photo Taken Yes -Epithelialization Medium 34-66% -Tunneling No -Undermining/Tunneling No -Circular Undermining No -Exudate Amt Large Medium -Exudate Type Yellow/Green Serous -Wound Margin Distinct, Distinct, Outline Outline Attached Attached -Granulation Amt Small (1-33%) Small (1-33%) -Necrosis Amt Small (1-33%) -Necrotic Tissue Type Adherent Slough Adherent Slough -Structure Exposed N/A N/A -Texture (Elif-wound Skin Appearance) Assessed, Assessed Scarring -Moisture (Elif-wound Skin Appearance) Assessed Assessed -Color (Elif-wound Skin Appearance) Assessed Assessed -Temperature (Elif-wound Skin No Abnormality Appearance) (Pt Warm) -Tenderness on Palpation (Elif-wound Yes No Skin Appearance) -Ulcer Cleansing Soap and Water Rinsed/ Irrigated with Saline -Foul Odor after Cleansing No No -Anesthetic Used 5% Lidocaine Gel #1- R LAT LE (P/O BASAL CELL CA) -Combined with other wound No No -Current Size (cm) - Length 3.0 -Current Size (cm) - Width 3.2 -Current Size (cm) - Depth 0.2 -Total Square Cm 9.60 -Date of Last Picture (Recall this 07/05/23 field) -Photo Taken Yes -Epithelialization Small 1-33% None Present -Tunneling No -Undermining/Tunneling No -Circular Undermining No -Exudate Amt Large Large -Exudate Type Serosanguineous Yellow/Green -Wound Margin Distinct, Distinct, Outline Outline Attached Attached -Granulation Amt Large (67-100%) Large (67-100%) -Granulation Quality Red Hyper- granulation -Slough/Fibrin Yes -Necrosis Amt Small (1-33%) Small (1-33%) -Necrotic Tissue Type Adherent Slough Adherent Slough -Structure Exposed N/A N/A -Texture (Elif-wound Skin Appearance) Assessed Assessed -Moisture (Elif-wound Skin Appearance) Assessed Assessed -Color (Elif-wound Skin Appearance) Assessed Assessed -Temperature (Elif-wound Skin No Abnormality No Abnormality Appearance) (Pt Warm) (Pt Warm) -Tenderness on Palpation (Elif-wound Yes No Skin Appearance) -Ulcer Cleansing Soap and Water Soap and Water -Foul Odor after Cleansing No No -Anesthetic Used 5% Lidocaine 5% Lidocaine Gel Gel Lower Limb Edema Present Yes Right Calf (cm) 36 30.7 Right Ankle (cm) 25.8 24 WC - Nurse 2 - General Ulcer CM Notes Start: 07/05/23 09:27 Freq: Status: Active Protocol: Activity Type Activity Date Activity User E-sign Co-sign Detail Recorded Client Recorded Date Recorded By Document 07/05/23 09:47 MW Desktop 07/05/23 09:54 MW Document 07/12/23 10:47 Laptop 07/12/23 10:54 07/05/23 07/12/23 09:47 10:47 Wound Center Nurse 2 #3 right lateral ankle -Time 09:51 10:48 -Correct Patient Yes Yes -Correct Side, Site, Position Yes Yes -Correct Procedure Yes Yes -Procedure Performed Yes Yes -Type of Procedure Debridement Debridement -Clinical Debridement Subcutaneous Subcutaneous -Tissue Removed Subcutaneous Subcutaneous -Post Debridement (cm) - Length 1.0 0.9 -Post Debridement (cm) - Width 1.0 1.2 -Post Debridement (cm) - Depth 0.2 0.2 -Total Square (Post) (cm) 1.00 1.08 -Area of Debridement (cm) - Length 1.0 0.9 -Area of Debridement (cm) - Width 1.0 1.2 -Total Square (Area) (cm) 1.00 1.08 -Tunneling No No -Undermining/Tunneling No No -Circular Undermining No No -Wound/Ulcer Outcome Not Healed Not Healed -Ulcer Cleansing Rinsed/ Rinsed/ Irrigated with Irrigated with Saline Saline -Foul Odor after Cleansing No No -Bioengineered Tissue No No -Bleeding Controlled with Pressure Pressure -Treatment Response Procedure Procedure Tolerated Well Tolerated Well -Offloading No No -Debridement - Subq, 1st 20sq cm Yes Yes #1- R LAT LE (P/O BASAL CELL CA) -Time 09:52 10:48 -Correct Patient Yes Yes -Correct Side, Site, Position Yes Yes -Correct Procedure Yes Yes -Procedure Performed Yes Yes -Type of Procedure Debridement Debridement -Clinical Debridement Subcutaneous Subcutaneous -Tissue Removed Subcutaneous Subcutaneous -Post Debridement (cm) - Length 2.7 2.5 -Post Debridement (cm) - Width 3.0 3.0 -Post Debridement (cm) - Depth 0.1 0.1 -Total Square (Post) (cm) 8.10 7.50 -Area of Debridement (cm) - Length 2.7 2.5 -Area of Debridement (cm) - Width 3.0 3.0 -Total Square (Area) (cm) 8.10 7.50 -Tunneling No No -Undermining/Tunneling No No -Circular Undermining No No -Wound/Ulcer Outcome Not Healed Not Healed -Ulcer Cleansing Rinsed/ Rinsed/ Irrigated with Irrigated with Saline Saline -Foul Odor after Cleansing No No -Bioengineered Tissue Yes Yes -Type of Bioengineered Tissue Epifix Mesh Epifix Mesh -Expiration Date 03/04/28 03/04/28 -Product Lot Number [id number] -Percent Used 100 100 -Lot number of Saline Used [id number] -Bleeding Controlled with Pressure Pressure -Treatment Response Procedure Procedure Tolerated Well Tolerated Well -Offloading No No -Debridement - Subq, 1st 20sq cm No No -Apply Skin Sub - 1st 25 sq cm - Legs 1 1 -Epifix Mesh (per sq cm) 11 11 Pain Scale: 0-10 Numeric Is Patient Pain Free? Yes Yes - Nurse 3 - General Ulcer D/C NN Start: 07/05/23 09:27 Freq: Status: Active Protocol: Activity Type Activity Date Activity User E-sign Co-sign Detail Recorded Client Recorded Date Recorded By Document 07/05/23 10:04 Desktop 07/05/23 10:06 Document 07/12/23 11:03 Desktop 07/12/23 11:12 07/05/23 07/12/23 10:04 11:03 Wound Care Center Nurse 3 #3 right lateral ankle -Ulcer Cleansing Not Cleansed Not Cleansed -Foul Odor after Cleansing No No -Negative Pressure Wound Therapy N/A -Primary Dressing Applied Aquacel Extra, Mepilex Border -Primary Dressing Covered/Secured with Dry Gauze -Aquacel Extra 1 1 -Mepilex Border 1 1 #1- R LAT LE (P/O BASAL CELL CA) -Ulcer Cleansing Not Cleansed Not Cleansed -Foul Odor after Cleansing No No -Primary Dressing Applied Mepilex Border Mepilex Border -Primary Dressing Covered/Secured with Dry Gauze -Mepilex Border 1 1 Pain Scale: 0-10 Numeric Is Patient Pain Free? Yes Yes Teaching: Wound Center *Wound/Skin Impairment -Person Taught Patient -Teaching Method Discussion -Response to teaching Verbalize understanding Compression Wraps & Stockings -Person Taught Patient -Teaching Method Discussion -Response to teaching Verbalize understanding Dressing Your Wound -Person Taught Patient Patient -Teaching Method Discussion Discussion -Response to teaching Verbalize Verbalize understanding understanding WC - Visit Discharge Discharge Condition Stable Stable Ambulatory Status Ambulatory,Cane Ambulatory,Cane Transportation Private Auto Medication Reconcilliation completed & Yes Yes provided to patient/care provider Clinical Summary of Care Provided Yes Yes Additional Wound Wound debrided: Right lateral ankle venous ulcer Laterality: Right Type of Debridement: Excisional debridement Anesthesia Used: 5% Lidocaine Gel Depth: Down to and including healthy tissue and in the subcutaneous layer Percentage of wound debrided: 100 Instrument Used: 3mm curette Tissue Removed: Non viable tissue and slough Severity: Fat Layer Exposed Amount of bleeding with debridement: Mild Bleeding Controlled with: Compression and gauze Assessment/Plan Assessment/Plan (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: CODE(S): C44.721 - Squamous cell carcinoma of skin of unspecified lower limb, including hip QUALIFIERS: Laterality: right Qualified Code(s): C44.722 - Squ amous cell carcinoma of skin of right lower limb, including hip PLAN: EpiFix #8 applied Covered with wound veil and Steri-Strips patient is to leave alone and not take off or shower on that leg (2) Venous ulcer of ankle: CODE(S): I83.003 - Varicose veins of unspecified lower extremity with ulcer of ankle; L97.309 - Non-pressure chronic ulcer of unspecified ankle with unspecified severity QUALIFIERS: Varicose vein presence: with varicose veins Laterality: right Non-pressure ulcer stage: limited to breakdown of skin Qualified Code(s): I83.013 - Varicose veins of right lower extremity with ulcer of ankle; L97.311 - Non-pressure chronic ulcer of right ankle limited to breakdown of skin PLAN: Refer to Dr. Galaviz for her right lower leg edema and abnormal venous ultrasounds. Obvious occlusions to her GSV's and she has discoloration to the leg with swelling and pain. (3) Non-pressure ulcer of right lower extremity: CODE(S): L97.919 - Non-pressure chronic ulcer of unspecified part of right lower leg with unspecified severity QUALIFIERS: Non-pressure ulcer stage: with fat layer exposed Qualified Code(s): L97.912 - Non-pressure chronic ulcer of unspecified part of right lower leg with fat layer exposed PLAN: Wash the right lateral ankle wounds with an antibacterial soap and water pat dry apply Fibracol moistened cover with gauze and dressings daily. Wear a double layer Tubigrip Follow-up in 1 week Continue antibiotic therapy for till done
[2023-07-26 09:19] VITALS: BP 139/53; PULSE 61; RESP 18; TEMP 35.9
--- NOTE | 2023-07-26 12:19 | PCM.WC.PN ---
History of Present Illness Date of Service: 07/26/23 Chief Complaint: Follow-up on her right lower leg lateral area wound nonhealing since at least November. History of Wound: 72-year-old white female in [place] where she is living during the winter. She had a growth removed from her right lateral lower leg. She is still not sure if it is cancer or not. After finally getting through to the dermatology she found that they never sent a biopsy off. She saw her own doctor up here and she was referred to us from her and put on cephalexin. Recently she was taken off her Lasix and has terrible edema of her lower extremities and abdomen. Patient states she has gained 9 pounds Patient had been referred to dermatology and has returned after they did Mohs surgery on her right lateral lower leg. They state they got all the cancer out. We will reapply for EpiFix to restart her. We will also also refer to Dr. Galaviz for vascular problems she is having in her right lower leg. Her biggest complaint is that she is swelling a lot in her lower extremities. Worried about a blood clot Now she has breast cancer and is being seen by oncology at [facility] for that. She has left total mastectomy on 06/12/2023. She states she is healing well from that. Progress of Wound: Right lateral lower leg is filling in nicely with the epi fix and healing well the right ankle is smaller in size. We will continue using the EpiFix she seems to be doing well on both. Measurements are smaller Subjective Subjective Patient is agreeable to plan Objective Data Objective Data Measurements are smaller the wounds are doing well she were working conjunction with dermatology. We will add the second last EpiFix that she is allowed to have after the infection seems to be controlled now Vital Signs: Vital Signs Temp Pulse Resp BP O2 Del Method 96.6 F L 61 18 139/53 H Room Air 07/26/23 09:19 07/26/23 09:19 07/26/23 09:19 07/26/23 09:19 07/12/23 10:27 Oxygen Delivery Method Room Air Lab / Micro Data Attestation: I reviewed the patient's lab results. Physical Exam Const oriented x3 General Appearance: cooperative Exam Limitations: no limitations HEENT normocephalic Head and Scalp: normal to inspection Face and Sinus: normal facial exam Nose: external nose normal General Ear: hearing grossly impaired External Ear: external ears normal Mouth: oral and palatal mucosa normal Eyes PERRL General Eye: normal appearance of both eyes Neck full ROM General: normal visual inspection Resp normal respiratory effort Effort and Inspection: able to speak in complete sentences Auscultation: clear to auscultation bilaterally Cardio regular rate and regular rhythm Palpation: normal PMI Rate: regular rate Rhythm: regular rhythm GI Auscultation: normoactive bowel sounds Palpation: soft and no hepatosplenomegaly external exam normal Back/Spine Cervical Spine: cervical ROM normal Thoracic Spine / Upper Back: normal to inspection Lumbar Spine / Lower Back: normal to inspection Extremity normal to inspection General Extremity: normal exam except as noted Skin no rashes or lesions noted Neuro oriented x3 Psych Appearance: grossly normal Speech: normal speech Thought Content: normal thought content Judgement: judgement good Debridement Note Debridement Note Wound debrided: Right francis Laterality: Right Type of Debridement: Excisional debridement Anesthesia Used: 5% Lidocaine Gel Depth: Down to and including healthy tissue Percentage of wound debrided: 100 Instrument Used: 3mm curette Tissue Removed: Fibrin and slough Severity: Fat Layer Exposed Amount of bleeding with debridement: None Bleeding Controlled with: Compression and gauze Patient tolerated procedure: Patient tolerated procedure well Post-Debridement Measurements and Additional Note: Post-Debridement Measurements/Treatment - Nurse 1 - General Ulcer Assessment Start: 07/05/23 09:27 Freq: Status: Active Protocol: SAHIL Activity Type Activity Date Activity User E-sign Co-sign Detail Recorded Client Recorded Date Recorded By Document 07/05/23 09:27 [employer] 07/05/23 09:44 Document 07/12/23 10:27 Desktop 07/12/23 10:37 Document 07/26/23 09:19 Desktop 07/26/23 09:29 DL 07/05/23 07/12/23 07/26/23 09:27 10:27 09:19 - Today's Visit Information Type of service Follow-up Visit Follow-up Visit Follow-up Visit (Physician/PIANO INSTRUCTOR (Physician/PIANO INSTRUCTOR (Physician/PIANO INSTRUCTOR ) ) ) Arrival Mode Ambulatory,Cane Ambulatory,Cane Ambulatory Transfer Assistance None Patient Identification Verified (Name & Yes Yes Yes ) Patient Requires Transmission-Based No No No Precautions Vital Signs Temperature (97.8 F-99.1 F) 97.5 F L 96.3 F L 96.6 F L Temperature Source Temporal Temporal Temporal Pulse Rate (60-100) 69 69 61 Pulse Location Monitor Monitor Monitor Respiratory Rate (12-18) 18 Respiratory rate source Observation Oxygen Delivery Method Room Air Room Air Blood Pressure (90/60-120/80) 87/63 L 127/54 H 139/53 H Blood Pressure Mean (mm Hg) 71 78 81 Source Monitor Monitor Monitor Position Semi-Fowlers Sitting Blood Pressure Location Right Arm Right Arm History Since Last Visit- (Skip if this is Patient's initial visit) Have you changed medications since your No No No last visit? Any new allergies or adverse reactions No No No Had a fall/change in ADL's that may No No No increase risk of falls Signs or symptoms of abuse and/or No No No neglect since last visit Have you been in the hospital since your No No No last visit? Has dressing in place as prescribed Yes Yes Yes Has compression in place as prescribed Yes Yes Yes Has offloadiing in place as prescribed No No N/A Experienced any changes in pain level or No No No management Left Footwear Regular Shoe Right Footwear Regular Shoe Pain Scale: 0-10 Numeric Is Patient Pain Free? Yes Yes Yes Teaching: Wound Center Dressing Your Wound -Person Taught Patient -Teaching Method Discussion -Response to teaching Verbalize understanding - Nurse 1 - General Ulcer Measurement Start: 07/05/23 09:27 Freq: Status: Active Protocol: Activity Type Activity Date Activity User E-sign Co-sign Detail Recorded Client Recorded Date Recorded By Document 07/05/23 09:27 [employer] 07/05/23 09:44 Document 07/12/23 10:27 Desktop 07/12/23 10:37 Document 07/26/23 09:19 DL Desktop 07/26/23 09:29 DL 07/05/23 07/12/23 07/26/23 09:27 10:27 09:19 Wound Center Nurse 1 #3 right lateral ankle -Combined with other wound No -Current Size (cm) - Length 1.0 1 -Current Size (cm) - Width 0.8 0.9 -Current Size (cm) - Depth 0.1 0.1 -Total Square Cm 0.80 0.9 -Date of Last Picture (Recall this 07/05/23 field) -Photo Taken Yes -Epithelialization Medium 34-66% -Tunneling No -Undermining/Tunneling No -Circular Undermining No -Exudate Amt Large Medium Small -Exudate Type Yellow/Green Serous Serosanguineous -Wound Margin Distinct, Distinct, Distinct, Outline Outline Outline Attached Attached Attached -Granulation Amt Small (1-33%) Small (1-33%) Medium (34-66%) -Granulation Quality Red -Necrosis Amt Small (1-33%) Medium (34-66%) -Necrotic Tissue Type Adherent Slough Adherent Slough Adherent Slough -Structure Exposed N/A N/A N/A -Texture (Elif-wound Skin Appearance) Assessed, Assessed Scarring Scarring -Moisture (Elif-wound Skin Appearance) Assessed Assessed No Abnormality -Color (Elif-wound Skin Appearance) Assessed Assessed Hemosiderin Staining -Temperature (Elif-wound Skin No Abnormality No Abnormality Appearance) (Pt Warm) (Pt Warm) -Tenderness on Palpation (Elif-wound Yes No Skin Appearance) -Ulcer Cleansing Soap and Water Rinsed/ Soap and Water Irrigated with Saline -Foul Odor after Cleansing No No No -Anesthetic Used 5% Lidocaine 5% Lidocaine Gel Gel #1- R LAT LE (P/O BASAL CELL CA) -Combined with other wound No No -Current Size (cm) - Length 3.0 1.7 -Current Size (cm) - Width 3.2 2.7 -Current Size (cm) - Depth 0.2 0.1 -Total Square Cm 9.60 4.59 -Date of Last Picture (Recall this 07/05/23 field) -Photo Taken Yes -Epithelialization Small 1-33% None Present -Tunneling No -Undermining/Tunneling No -Circular Undermining No -Exudate Amt Large Large Medium -Exudate Type Serosanguineous Yellow/Green Serosanguineous -Wound Margin Distinct, Distinct, Distinct, Outline Outline Outline Attached Attached Attached -Granulation Amt Large (67-100%) Large (67-100%) Large (67-100%) -Granulation Quality Red Hyper- Red granulation -Slough/Fibrin Yes -Necrosis Amt Small (1-33%) Small (1-33%) Small (1-33%) -Necrotic Tissue Type Adherent Slough Adherent Slough Adherent Slough -Structure Exposed N/A N/A N/A -Texture (Elif-wound Skin Appearance) Assessed Assessed Scarring -Moisture (Elif-wound Skin Appearance) Assessed Assessed No Abnormality -Color (Elif-wound Skin Appearance) Assessed Assessed Hemosiderin Staining -Temperature (Elif-wound Skin No Abnormality No Abnormality No Abnormality Appearance) (Pt Warm) (Pt Warm) (Pt Warm) -Tenderness on Palpation (Elif-wound Yes No No Skin Appearance) -Ulcer Cleansing Soap and Water Soap and Water Soap and Water -Foul Odor after Cleansing No No No -Anesthetic Used 5% Lidocaine 5% Lidocaine 5% Lidocaine Gel Gel Gel Lower Limb Edema Present Yes Right Calf (cm) 36 30.7 33.6 Right Ankle (cm) 25.8 24 22.7 WC - Nurse 2 - General Ulcer CM Notes Start: 07/05/23 09:27 Freq: Status: Active Protocol: Activity Type Activity Date Activity User E-sign Co-sign Detail Recorded Client Recorded Date Recorded By Document 07/05/23 09:47 MW Desktop 07/05/23 09:54 MW Document 07/12/23 10:47 Laptop 07/12/23 10:54 Document 07/26/23 09:41 MW Desktop 07/26/23 09:53 MW 07/05/23 07/12/23 07/26/23 09:47 10:47 09:41 Wound Center Nurse 2 #3 right lateral ankle -Time 09:51 10:48 09:42 -Correct Patient Yes Yes Yes -Correct Side, Site, Position Yes Yes Yes -Correct Procedure Yes Yes Yes -Procedure Performed Yes Yes Yes -Type of Procedure Debridement Debridement Debridement -Clinical Debridement Subcutaneous Subcutaneous Subcutaneous -Tissue Removed Subcutaneous Subcutaneous Subcutaneous -Post Debridement (cm) - Length 1.0 0.9 1.4 -Post Debridement (cm) - Width 1.0 1.2 1.0 -Post Debridement (cm) - Depth 0.2 0.2 0.2 -Total Square (Post) (cm) 1.00 1.08 1.40 -Area of Debridement (cm) - Length 1.0 0.9 1.4 -Area of Debridement (cm) - Width 1.0 1.2 1.0 -Total Square (Area) (cm) 1.00 1.08 1.40 -Tunneling No No No -Undermining/Tunneling No No No -Circular Undermining No No No -Wound/Ulcer Outcome Not Healed Not Healed Not Healed -Ulcer Cleansing Rinsed/ Rinsed/ Rinsed/ Irrigated with Irrigated with Irrigated with Saline Saline Saline -Foul Odor after Cleansing No No No -Bioengineered Tissue No No No -Bleeding Controlled with Pressure Pressure Pressure -Treatment Response Procedure Procedure Procedure Tolerated Well Tolerated Well Tolerated Well -Offloading No No No -Debridement - Subq, 1st 20sq cm Yes Yes Yes #1- R LAT LE (P/O BASAL CELL CA) -Time 09:52 10:48 09:46 -Correct Patient Yes Yes Yes -Correct Side, Site, Position Yes Yes Yes -Correct Procedure Yes Yes Yes -Procedure Performed Yes Yes Yes -Type of Procedure Debridement Debridement Debridement -Clinical Debridement Subcutaneous Subcutaneous Subcutaneous -Tissue Removed Subcutaneous Subcutaneous Subcutaneous -Post Debridement (cm) - Length 2.7 2.5 1.5 -Post Debridement (cm) - Width 3.0 3.0 1.5 -Post Debridement (cm) - Depth 0.1 0.1 0.1 -Total Square (Post) (cm) 8.10 7.50 2.25 -Area of Debridement (cm) - Length 2.7 2.5 1.5 -Area of Debridement (cm) - Width 3.0 3.0 1.5 -Total Square (Area) (cm) 8.10 7.50 2.25 -Tunneling No No No -Undermining/Tunneling No No No -Circular Undermining No No No -Wound/Ulcer Outcome Not Healed Not Healed Not Healed -Ulcer Cleansing Rinsed/ Rinsed/ Rinsed/ Irrigated with Irrigated with Irrigated with Saline Saline Saline -Foul Odor after Cleansing No No No -Bioengineered Tissue Yes Yes No -Type of Bioengineered Tissue Epifix Mesh Epifix Mesh Epifix Mesh -Expiration Date 03/04/28 03/04/28 03/04/28 -Product Lot Number [id number] -Percent Used 100 100 100 -Lot number of Saline Used [id number] -Bleeding Controlled with Pressure Pressure Pressure -Treatment Response Procedure Procedure Procedure Tolerated Well Tolerated Well Tolerated Well -Offloading No No No -Debridement - Subq, 1st 20sq cm No No No -Apply Skin Sub - 1st 25 sq cm - Legs 1 1 -Epifix Mesh (per sq cm) 11 11 11 Pain Scale: 0-10 Numeric Is Patient Pain Free? Yes Yes Yes - Nurse 3 - General Ulcer D/C NN Start: 07/05/23 09:27 Freq: Status: Active Protocol: Activity Type Activity Date Activity User E-sign Co-sign Detail Recorded Client Recorded Date Recorded By Document 07/05/23 10:04 GM Desktop 07/05/23 10:06 GM Document 07/12/23 11:03 GM Desktop 07/12/23 11:12 GM Document 07/26/23 10:03 DL Desktop 07/26/23 10:05 DL 07/05/23 07/12/23 07/26/23 10:04 11:03 10:03 Wound Care Center Nurse 3 #3 right lateral ankle -Ulcer Cleansing Not Cleansed Not Cleansed Not Cleansed -Foul Odor after Cleansing No No -Negative Pressure Wound Therapy N/A -Primary Dressing Applied Aquacel Extra, Mepilex Border Mepilex Border -Other Dressing Epifix -Primary Dressing Covered/Secured with Dry Gauze -Aquacel Extra 1 1 -Mepilex Border 1 1 1 #1- R LAT LE (P/O BASAL CELL CA) -Ulcer Cleansing Not Cleansed Not Cleansed -Foul Odor after Cleansing No No No -Negative Pressure Wound Therapy N/A -Primary Dressing Applied Mepilex Border Mepilex Border Mepilex Border -Other Dressing epifix -Primary Dressing Covered/Secured with Dry Gauze -Mepilex Border 1 1 1 albert -Stockings Yes Treatment Response Procedure Tolerated Well Pain Scale: 0-10 Numeric Is Patient Pain Free? Yes Yes Yes Teaching: Wound Center *Wound/Skin Impairment -Person Taught Patient -Teaching Method Discussion -Response to teaching Verbalize understanding Compression Wraps & Stockings -Person Taught Patient -Teaching Method Discussion -Response to teaching Verbalize understanding Dressing Your Wound -Person Taught Patient Patient -Teaching Method Discussion Discussion -Response to teaching Verbalize Verbalize understanding understanding WC - Visit Discharge Discharge Condition Stable Stable Stable Ambulatory Status Ambulatory,Cane Ambulatory,Cane Ambulatory,Cane Transportation Private Auto Private Auto Medication Reconcilliation completed & Yes Yes provided to patient/care provider Clinical Summary of Care Provided Yes Yes Additional Wound Wound debrided: Right ankle venous ulcer Type of Debridement: Excisional debridement Anesthesia Used: 5% Lidocaine Gel Depth: Down to and including healthy tissue Percentage of wound debrided: 100 Instrument Used: 5mm curette Tissue Removed: Slough and fibrin Severity: Fat Layer Exposed Amount of bleeding with debridement: Mild Bleeding Controlled with: Compression and gauze Patient tolerated procedure: Patient tolerated procedure well Assessment/Plan Assessment/Plan (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: CODE(S): C44.721 - Squamous cell carcinoma of skin of unspecified lower limb, including hip QUALIFIERS: Laterality: right Qualified Code(s): C44.722 - Squamous cell carcinoma of skin of right lower limb, including hip PLAN: EpiFix #9 applied Covered with wound veil and Steri-Strips patient is to leave alone and not take off or shower on that leg (2) Venous ulcer of ankle: CODE(S): I83.003 - Varicose veins of unspecified lower extremity with ulcer of ankle; L97.309 - Non-pressure chronic ulcer of unspecified ankle with unspecified severity QUALIFIERS: Varicose vein presence: with varicose veins Laterality: right Non-pressure ulcer stage: limited to breakdown of skin Qualified Code(s): I83.013 - Varicose veins of right lower extremity with ulcer of ankle; L97.311 - Non-pressure chronic ulcer of right ankle limited to breakdown of skin PLAN: Refer to Dr. Galaviz for her right lower leg edema and abnormal venous ultrasounds. Obvious occlusions to her GSV's and she has discoloration to the leg with swelling and pain. (3) Non-pressure ulcer of right lower extremity: CODE(S): L97.919 - Non-pressure chronic ulcer of unspecified part of right lower leg with unspecified severity QUALIFIERS: Non-pressure ulcer stage: with fat layer exposed Qualified Code(s): L97.912 - Non-pressure chronic ulcer of unspecified part of right lower leg with fat layer exposed PLAN: Wash the right lateral ankle wounds with an antibacterial soap and water pat dry apply Fibracol moistened cover with gauze and dressings daily. Wear a double layer Tubigrip Follow-up in 1 week Continue antibiotic therapy for till done (4) Nonhealing nonsurgical wound: CODE(S): T14.8XXA - Other injury of unspecified body region, initial encounter
[2023-08-02 10:39] VITALS: BP 150/77; PULSE 74; RESP 18; TEMP 36
--- NOTE | 2023-08-02 11:08 | TISS_PTH ---
PATIENT: MARY ALICE GA LOC: U#:[id number] AGE/SX: 72/F ROOM: RE08/02/[address]: SAMUEL Grigsby : 1950 BED: DIS: 08/03/2023 SPEC #: [id number] RECD: 08/02/23 13:45 STATUS: KATHRYN REStephan #: [id number] TED: 08/02/23 11:[address]: Mariela Martines NP DEPT: SURGICAL PATHOLOGY RECD BY: Lori Patel ENTERED: 08/03/23 10:45 SP TYPE: Tissue Bx THU DR: Dr. Ernesto Rodriguez MD Tissues: Leg, NOS Procedures: Special Stain Group I Surgery Specimen Level IV AFB Stain (control) GMS Stain (control) HEADER OPERATION: Tissue biopsy of right leg PRE-OP DIAGNOSIS: History of Basal cell skin cancer and squamous cell skin cancer TISSUE SUBMITTED: Right leg tissue biopsy MICROSCOPIC DIAGNOSIS Lesion of right leg, core biopsy: Ulceration with associated acute and chronic inflammation and granulation. No evidence of malignancy. Negative for acid-fast bacilli and fungal organisms. See comment. AM:candice 08/04/2023 COMMENT AFB and GMS stains with matched controls were used in the evaluation of this case. MICROSCOPIC DESCRIPTION Slides are reviewed. GROSS DESCRIPTION Received in fixative is one container labeled with the patient's name and designated right leg tissue biopsy. The specimen consists of three cores of light cruz soft tissue. Each core has an average length of 0.7 mm and average diameter of 0.2 mm. The specimen is totally submitted in one cassette. / AM:candice 08/03/2023 TC:2 CPT: 51735, 72252 x2
--- NOTE | 2023-08-02 12:00 | PN.PCM_ITS ---
History of Present Illness Date of Service: 08/02/23 Chief Complaint: Follow-up on her right lower leg lateral area wound nonhealing since at least November. History of Wound: 72-year-old white female in [place] where she is living during the winter. She had a growth removed from her right lateral lower leg. She is still not sure if it is cancer or not. After finally getting through to the dermatology she found that they never sent a biopsy off. She saw her own doctor up here and she was referred to us from her and put on cephalexin. Recently she was taken off her Lasix and has terrible edema of her lower extremities and abdomen. Patient states she has gained 9 pounds Patient had been referred to dermatology and has returned after they did Mohs surgery on her right lateral lower leg. They state they got all the cancer out. We will reapply for EpiFix to restart her. We will also also refer to Dr. Galaviz for vascular problems she is having in her right lower leg. Her biggest complaint is that she is swelling a lot in her lower extremities. Worried about a blood clot Now she has breast cancer and is being seen by oncology at [facility] for that. She has left total mastectomy on 06/12/2023. She states she is healing well from that. Progress of Wound: Right lateral lower leg is filling in nicely with the epi fix and healing well the right ankle is smaller in size. We will continue using the EpiFix she seems to be doing well on both. Measurements are smaller Subjective Subjective Mrs Negron is a 72-year-old female presenting to the wound care center today for follow-up of full-thickness ulcerations to the right lower extremity. Patient does have a past medical history of skin cancer to the right leg. She has been seeing the nurse practitioner for graft placement to the full-thickness ulceration approximately to the right leg. She does have evidence of a full- thickness ulceration to the distal aspect of the right leg and also has been treated. She denies trauma. Denies constitutional symptoms. No other pedal complaints at this time. Objective Data Objective Data Vital Signs: Vital Signs Temp Pulse Resp BP O2 Del Method 96.8 F L 74 18 150/77 H Room Air 08/02/23 10:39 08/02/23 10:39 08/02/23 10:39 08/02/23 10:39 08/02/23 10:39 Oxygen Delivery Method Room Air Physical Exam Narrative Neurovascular status is unchanged. Evidence of 2 full-thickness ulceration to the right lower extremity lateral aspect. Proximal ulceration shows evidence of skin island concern for benign versus malignant soft tissue growth. There is evidence of a thin epidermal layer appreciated to the full-thickness ulceration. Right distal lateral ulceration shows evidence of fibrogranular base with no drainage. The right proximal ulceration with concern of soft tissue growth measures 2.8 x 3.0 x 0.1 cm. The right lower ulceration measures 1.5 x 1.0 x 0.1 cm. The right lower extremities prepped and draped in normal aseptic manner. Verbal consent obtained from the patient. 1 cc of lidocaine with epinephrine was administered to the proximal ulceration. Using a sterile 3 mm biopsy. 3 punch biopsies were taken from 3 different sites of the soft tissue mass put in formalin and sent to pathology at [facility]. Excisional debridement down to and including soft tissue mass with a number 5 mm tumor curette to the proximal right ulceration. Predebridement measurement was 2.7 x 3.9 x 0.1 cm. Postdebridement measurements 2.8 x 3.0 x 0.1 cm. EpiMesh 4.0 x 4.5 cm was applied to the right proximal full-thickness ulceration with 100% use. Tenth application. The graft site was free and clear of any infection. The wound/skin graft substitute was dressed with nonadherent bandage secured in place with Steri-Strips followed by bolster dressing as well as a single layer Tubigrip. Excisional debridement down to and including subcutaneous tissue with a number 5 mm dermal curette to the right distal ulceration without incident. Predebridement measurement is 1.4 x 0.8 x 0.1 cm. Postdebridement measurement is 1.5 x 1.0 x 0.1 cm. Debridement Note Debridement Note Debridement Free Text: Excisional debridement down to and including soft tissue mass with a number 5 mm tumor curette to the proximal right ulceration. Predebridement measurement was 2.7 x 3.9 x 0.1 cm. Postdebridement measurements 2.8 x 3.0 x 0.1 cm. EpiMesh 4.0 x 4.5 cm was applied to the right proximal full-thickness ulceration with 100% use. Tenth application. The graft site was free and clear of any infection. The wound/skin graft substitute was dressed with nonadherent bandage secured in place with Steri-Strips followed by bolster dressing as well as a single layer Tubigrip. Excisional debridement down to and including subcutaneous tissue with a number 5 mm dermal curette to the right distal ulceration without incident. Predebridement measurement is 1.4 x 0.8 x 0.1 cm. Postdebridement measurement is 1.5 x 1.0 x 0.1 cm. Post-Debridement Measurements and Additional Note: Post-Debridement Measurements/Treatment - Nurse 1 - General Ulcer Assessment Start: 07/05/23 09:27 Freq: Status: Active Protocol: [email or web address] Activity Type Activity Date Activity User E-sign Co-sign Detail Recorded Client Recorded Date Recorded By Document 07/05/23 09:27 GM Desktop 07/05/23 09:44 GM Document 07/12/23 10:27 GM Desktop 07/12/23 10:37 GM Document 07/26/23 09:19 DL Desktop 07/26/23 09:29 DL Document 08/02/23 10:39 KW Desktop 08/02/23 10:48 KW 07/05/23 07/12/23 07/26/23 09:27 10:27 09:19 - Today's Visit Information Type of service Follow-up Visit Follow-up Visit Follow-up Visit (Physician/SENIOR DIRECTOR CREATIVE SERVICES (Physician/SENIOR DIRECTOR CREATIVE SERVICES (Physician/SENIOR DIRECTOR CREATIVE SERVICES ) ) ) Arrival Mode Ambulatory,Cane Ambulatory,Cane Ambulatory Transfer Assistance None Patient Identification Verified (Name & Yes Yes Yes ) Patient Requires Transmission-Based No No No Precautions Vital Signs Temperature (97.8 F-99.1 F) 97.5 F L 96.3 F L 96.6 F L Temperature Source Temporal Temporal Temporal Pulse Rate (60-100) 69 69 61 Pulse Location Monitor Monitor Monitor Respiratory Rate (12-18) 18 Respiratory rate source Observation Oxygen Delivery Method Room Air Room Air Blood Pressure (90/60-120/80) 87/63 L 127/54 H 139/53 H Blood Pressure Mean (mm Hg) 71 78 81 Source Monitor Monitor Monitor Position Semi-Fowlers Sitting Blood Pressure Location Right Arm Right Arm History Since Last Visit- (Skip if this is Patient's initial visit) Have you changed medications since your No No No last visit? Any new allergies or adverse reactions No No No Had a fall/change in ADL's that may No No No increase risk of falls Signs or symptoms of abuse and/or No No No neglect since last visit Have you been in the hospital since your No No No last visit? Has dressing in place as prescribed Yes Yes Yes Has compression in place as prescribed Yes Yes Yes Has offloadiing in place as prescribed No No N/A Experienced any changes in pain level or No No No management Left Footwear Regular Shoe Right Footwear Regular Shoe Pain Scale: 0-10 Numeric Is Patient Pain Free? Yes Yes Yes Teaching: Wound Center Dressing Your Wound -Person Taught Patient -Teaching Method Discussion -Response to teaching Verbalize understanding 08/02/23 10:39 WC - Today's Visit Information Type of service Follow-up Visit (Physician/SENIOR DIRECTOR CREATIVE SERVICES ) Arrival Mode Ambulatory,Cane Transfer Assistance Patient Identification Verified (Name & Yes ) Patient Requires Transmission-Based Precautions Vital Signs Temperature (97.8 F-99.1 F) 96.8 F L Temperature Source Temporal Pulse Rate (60-100) 74 Pulse Location Monitor Respiratory Rate (12-18) 18 Respiratory rate source Observation Oxygen Delivery Method Room Air Blood Pressure (90/60-120/80) 150/77 H Blood Pressure Mean (mm Hg) 101 Source Monitor Position Sitting Blood Pressure Location Right Arm History Since Last Visit- (Skip if this is Patient's initial visit) Have you changed medications since your Yes last visit? Any new allergies or adverse reactions No Had a fall/change in ADL's that may No increase risk of falls Signs or symptoms of abuse and/or No neglect since last visit Have you been in the hospital since your No last visit? Has dressing in place as prescribed Yes Has compression in place as prescribed No Has offloadiing in place as prescribed No Experienced any changes in pain level or No management Left Footwear Regular Shoe Right Footwear Regular Shoe Pain Scale: 0-10 Numeric Is Patient Pain Free? Yes Teaching: Wound Center Dressing Your Wound -Person Taught -Teaching Method -Response to teaching - Nurse 1 - General Ulcer Measurement Start: 07/05/23 09:27 Freq: Status: Active Protocol: Activity Type Activity Date Activity User E-sign Co-sign Detail Recorded Client Recorded Date Recorded By Document 07/05/23 09:27 Desktop 07/05/23 09:44 GM Document 07/12/23 10:27 GM Desktop 07/12/23 10:37 GM Document 07/26/23 09:19 DL Desktop 07/26/23 09:29 DL Document 08/02/23 10:39 KW Desktop 08/02/23 10:48 KW 07/05/23 07/12/23 07/26/23 09:27 10:27 09:19 Wound Center Nurse 1 #3 right lateral ankle -Combined with other wound No -Current Size (cm) - Length 1.0 1 -Current Size (cm) - Width 0.8 0.9 -Current Size (cm) - Depth 0.1 0.1 -Total Square Cm 0.80 0.9 -Date of Last Picture (Recall this 07/05/23 field) -Photo Taken Yes -Epithelialization Medium 34-66% -Tunneling No -Undermining/Tunneling No -Circular Undermining No -Exudate Amt Large Medium Small -Exudate Type Yellow/Green Serous Serosanguineous -Wound Margin Distinct, Distinct, Distinct, Outline Outline Outline Attached Attached Attached -Granulation Amt Small (1-33%) Small (1-33%) Medium (34-66%) -Granulation Quality Red -Necrosis Amt Small (1-33%) Medium (34-66%) -Necrotic Tissue Type Adherent Slough Adherent Slough Adherent Slough -Structure Exposed N/A N/A N/A -Texture (Elif-wound Skin Appearance) Assessed, Assessed Scarring Scarring -Moisture (Elif-wound Skin Appearance) Assessed Assessed No Abnormality -Color (Elif-wound Skin Appearance) Assessed Assessed Hemosiderin Staining -Temperature (Elif-wound Skin No Abnormality No Abnormality Appearance) (Pt Warm) (Pt Warm) -Tenderness on Palpation (Elif-wound Yes No Skin Appearance) -Ulcer Cleansing Soap and Water Rinsed/ Soap and Water Irrigated with Saline -Foul Odor after Cleansing No No No -Anesthetic Used 5% Lidocaine 5% Lidocaine Gel Gel #1- R LAT LE (P/O BASAL CELL CA) -Combined with other wound No No -Current Size (cm) - Length 3.0 1.7 -Current Size (cm) - Width 3.2 2.7 -Current Size (cm) - Depth 0.2 0.1 -Total Square Cm 9.60 4.59 -Date of Last Picture (Recall this 07/05/23 field) -Photo Taken Yes -Epithelialization Small 1-33% None Present -Tunneling No -Undermining/Tunneling No -Circular Undermining No -Exudate Amt Large Large Medium -Exudate Type Serosanguineous Yellow/Green Serosanguineous -Wound Margin Distinct, Distinct, Distinct, Outline Outline Outline Attached Attached Attached -Granulation Amt Large (67-100%) Large (67-100%) Large (67-100%) -Granulation Quality Red Hyper- Red granulation -Slough/Fibrin Yes -Necrosis Amt Small (1-33%) Small (1-33%) Small (1-33%) -Necrotic Tissue Type Adherent Slough Adherent Slough Adherent Slough -Structure Exposed N/A N/A N/A -Texture (Elif-wound Skin Appearance) Assessed Assessed Scarring -Moisture (Elif-wound Skin Appearance) Assessed Assessed No Abnormality -Color (Elif-wound Skin Appearance) Assessed Assessed Hemosiderin Staining -Temperature (Elif-wound Skin No Abnormality No Abnormality No Abnormality Appearance) (Pt Warm) (Pt Warm) (Pt Warm) -Tenderness on Palpation (Elif-wound Yes No No Skin Appearance) -Ulcer Cleansing Soap and Water Soap and Water Soap and Water -Foul Odor after Cleansing No No No -Anesthetic Used 5% Lidocaine 5% Lidocaine 5% Lidocaine Gel Gel Gel Lower Limb Edema Present Yes Right Calf (cm) 36 30.7 33.6 Point of measurement (cm from the medial instep) Right Ankle (cm) 25.8 24 22.7 Point of Measurement (cm from the medial instep) 08/02/23 10:39 Wound Center Nurse 1 #3 right lateral ankle -Combined with other wound -Current Size (cm) - Length 2.4 -Current Size (cm) - Width 2.0 -Current Size (cm) - Depth 0.1 -Total Square Cm 4.80 -Date of Last Picture (Recall this field) -Photo Taken -Epithelialization -Tunneling -Undermining/Tunneling -Circular Undermining -Exudate Amt Small -Exudate Type Serosanguineous -Wound Margin Distinct, Outline Attached -Granulation Amt Small (1-33%) -Granulation Quality Red -Necrosis Amt Large (67-100%) -Necrotic Tissue Type Adherent Slough -Structure Exposed -Texture (Elif-wound Skin Appearance) Assessed -Moisture (Elif-wound Skin Appearance) Assessed -Color (Elif-wound Skin Appearance) Assessed -Temperature (Elif-wound Skin No Abnormality Appearance) (Pt Warm) -Tenderness on Palpation (Elif-wound Skin Appearance) -Ulcer Cleansing Soap and Water -Foul Odor after Cleansing -Anesthetic Used 5% Lidocaine Gel #1- R LAT LE (P/O BASAL CELL CA) -Combined with other wound -Current Size (cm) - Length 1.2 -Current Size (cm) - Width 0.9 -Current Size (cm) - Depth 0.1 -Total Square Cm 1.08 -Date of Last Picture (Recall this field) -Photo Taken -Epithelialization -Tunneling -Undermining/Tunneling -Circular Undermining -Exudate Amt Small -Exudate Type Serosanguineous -Wound Margin Distinct, Outline Attached -Granulation Amt Large (67-100%) -Granulation Quality Red -Slough/Fibrin -Necrosis Amt Small (1-33%) -Necrotic Tissue Type -Structure Exposed -Texture (Elif-wound Skin Appearance) Assessed -Moisture (Elif-wound Skin Appearance) Assessed -Color (Elif-wound Skin Appearance) Assessed -Temperature (Elif-wound Skin No Abnormality Appearance) (Pt Warm) -Tenderness on Palpation (Elif-wound Skin Appearance) -Ulcer Cleansing Soap and Water -Foul Odor after Cleansing -Anesthetic Used 5% Lidocaine Gel Lower Limb Edema Present Right Calf (cm) Point of measurement (cm from the medial 34.5 instep) Right Ankle (cm) Point of Measurement (cm from the medial 24.5 instep) WC - Nurse 2 - General Ulcer CM Notes Start: 07/05/23 09:27 Freq: Status: Active Protocol: Activity Type Activity Date Activity User E-sign Co-sign Detail Recorded Client Recorded Date Recorded By Document 07/05/23 09:47 MW Desktop 07/05/23 09:54 MW Document 07/12/23 10:47 JF Laptop 07/12/23 10:54 JF Document 07/26/23 09:41 MW Desktop 07/26/23 09:53 MW Edit Result 07/26/23 09:41 MW (1) [id number] 07/31/23 13:35 PL Document 08/02/23 11:18 JF Laptop 08/02/23 11:21 JF (1) #1- R LAT LE (P/O BASAL CELL CA) - Apply Skin Sub - 1st 25 sq cm - Legs => 1 07/05/23 07/12/23 07/26/23 09:47 10:47 09:41 Wound Center Nurse 2 #3 right lateral ankle -Time 09:51 10:48 09:42 -Correct Patient Yes Yes Yes -Correct Side, Site, Position Yes Yes Yes -Correct Procedure Yes Yes Yes -Procedure Performed Yes Yes Yes -Type of Procedure Debridement Debridement Debridement -Clinical Debridement Subcutaneous Subcutaneous Subcutaneous -Tissue Removed Subcutaneous Subcutaneous Subcutaneous -Post Debridement (cm) - Length 1.0 0.9 1.4 -Post Debridement (cm) - Width 1.0 1.2 1.0 -Post Debridement (cm) - Depth 0.2 0.2 0.2 -Total Square (Post) (cm) 1.00 1.08 1.40 -Area of Debridement (cm) - Length 1.0 0.9 1.4 -Area of Debridement (cm) - Width 1.0 1.2 1.0 -Total Square (Area) (cm) 1.00 1.08 1.40 -Tunneling No No No -Undermining/Tunneling No No No -Circular Undermining No No No -Wound/Ulcer Outcome Not Healed Not Healed Not Healed -Ulcer Cleansing Rinsed/ Rinsed/ Rinsed/ Irrigated with Irrigated with Irrigated with Saline Saline Saline -Foul Odor after Cleansing No No No -Bioengineered Tissue No No No -Bleeding Controlled with Pressure Pressure Pressure -Treatment Response Procedure Procedure Procedure Tolerated Well Tolerated Well Tolerated Well -Offloading No No No -Debridement - Subq, 1st 20sq cm Yes Yes Yes #1- R LAT LE (P/O BASAL CELL CA) -Time 09:52 10:48 09:46 -Correct Patient Yes Yes Yes -Correct Side, Site, Position Yes Yes Yes -Correct Procedure Yes Yes Yes -Procedure Performed Yes Yes Yes -Type of Procedure Debridement Debridement Debridement -Clinical Debridement Subcutaneous Subcutaneous Subcutaneous -Tissue Removed Subcutaneous Subcutaneous Subcutaneous -Post Debridement (cm) - Length 2.7 2.5 1.5 -Post Debridement (cm) - Width 3.0 3.0 1.5 -Post Debridement (cm) - Depth 0.1 0.1 0.1 -Total Square (Post) (cm) 8.10 7.50 2.25 -Area of Debridement (cm) - Length 2.7 2.5 1.5 -Area of Debridement (cm) - Width 3.0 3.0 1.5 -Total Square (Area) (cm) 8.10 7.50 2.25 -Tunneling No No No -Undermining/Tunneling No No No -Circular Undermining No No No -Wound/Ulcer Outcome Not Healed Not Healed Not Healed -Ulcer Cleansing Rinsed/ Rinsed/ Rinsed/ Irrigated with Irrigated with Irrigated with Saline Saline Saline -Foul Odor after Cleansing No No No -Bioengineered Tissue Yes Yes No -Type of Bioengineered Tissue Epifix Mesh Epifix Mesh Epifix Mesh -Expiration Date 03/04/28 03/04/28 03/04/28 -Product Lot Number [id number] -Percent Used 100 100 100 -Lot number of Saline Used [id number] -Bleeding Controlled with Pressure Pressure Pressure -Treatment Response Procedure Procedure Procedure Tolerated Well Tolerated Well Tolerated Well -Offloading No No No -Debridement - Subq, 1st 20sq cm No No No -Apply Skin Sub - 1st 25 sq cm - Legs 1 1 1 -Epifix Mesh (per sq cm) 11 11 11 Pain Scale: 0-10 Numeric Is Patient Pain Free? Yes Yes Yes 08/02/23 11:18 Wound Center Nurse 2 #3 right lateral ankle -Time 11:19 -Correct Patient Yes -Correct Side, Site, Position Yes -Correct Procedure Yes -Procedure Performed Yes -Type of Procedure Debridement -Clinical Debridement Subcutaneous -Tissue Removed Subcutaneous -Post Debridement (cm) - Length 1.5 -Post Debridement (cm) - Width 1.0 -Post Debridement (cm) - Depth 0.1 -Total Square (Post) (cm) 1.50 -Area of Debridement (cm) - Length 1.5 -Area of Debridement (cm) - Width 1.0 -Total Square (Area) (cm) 1.50 -Tunneling No -Undermining/Tunneling No -Circular Undermining No -Wound/Ulcer Outcome Not Healed -Ulcer Cleansing Rinsed/ Irrigated with Saline -Foul Odor after Cleansing No -Bioengineered Tissue No -Bleeding Controlled with Pressure -Treatment Response Procedure Tolerated Well -Offloading No -Debridement - Subq, 1st 20sq cm Yes #1- R LAT LE (P/O BASAL CELL CA) -Time 11:19 -Correct Patient Yes -Correct Side, Site, Position Yes -Correct Procedure Yes -Procedure Performed Yes -Type of Procedure Debridement -Clinical Debridement Subcutaneous -Tissue Removed Subcutaneous -Post Debridement (cm) - Length 2.8 -Post Debridement (cm) - Width 3.0 -Post Debridement (cm) - Depth 0.1 -Total Square (Post) (cm) 8.40 -Area of Debridement (cm) - Length 2.8 -Area of Debridement (cm) - Width 3.0 -Total Square (Area) (cm) 8.40 -Tunneling No -Undermining/Tunneling No -Circular Undermining No -Wound/Ulcer Outcome Not Healed -Ulcer Cleansing Rinsed/ Irrigated with Saline -Foul Odor after Cleansing No -Bioengineered Tissue Yes -Type of Bioengineered Tissue Epifix Mesh -Expiration Date 03/04/28 -Product Lot Number [id number] -Percent Used 100 -Lot number of Saline Used [id number] -Bleeding Controlled with Pressure -Treatment Response Procedure Tolerated Well -Offloading No -Debridement - Subq, 1st 20sq cm No -Apply Skin Sub - 1st 25 sq cm - Legs 1 -Epifix Mesh (per sq cm) 11 Pain Scale: 0-10 Numeric Is Patient Pain Free? Yes WC - Nurse 3 - General Ulcer D/C NN Start: 07/05/23 09:27 Freq: Status: Active Protocol: Activity Type Activity Date Activity User E-sign Co-sign Detail Recorded Client Recorded Date Recorded By Document 07/05/23 10:04 Desktop 07/05/23 10:06 GM Document 07/12/23 11:03 GM Desktop 07/12/23 11:12 GM Document 07/26/23 10:03 DL Desktop 07/26/23 10:05 DL Document 08/02/23 11:33 [facility] Desktop 08/02/23 11:34 BM 07/05/23 07/12/23 07/26/23 10:04 11:03 10:03 Wound Care Center Nurse 3 #3 right lateral ankle -Ulcer Cleansing Not Cleansed Not Cleansed Not Cleansed -Foul Odor after Cleansing No No -Negative Pressure Wound Therapy N/A -Primary Dressing Applied Aquacel Extra, Mepilex Border Mepilex Border -Other Dressing Epifix -Primary Dressing Covered/Secured with Dry Gauze -Aquacel Extra 1 1 -Mepilex Border 1 1 1 #1- R LAT LE (P/O BASAL CELL CA) -Ulcer Cleansing Not Cleansed Not Cleansed -Foul Odor after Cleansing No No No -Negative Pressure Wound Therapy N/A -Primary Dressing Applied Mepilex Border Mepilex Border Mepilex Border -Other Dressing epifix -Primary Dressing Covered/Secured with Dry Gauze -Other Covering -Mepilex Border 1 1 1 albert -Stockings Yes -Other Treatment Response Procedure Tolerated Well Pain Scale: 0-10 Numeric Is Patient Pain Free? Yes Yes Yes Teaching: Wound Center *Wound/Skin Impairment -Person Taught Patient -Teaching Method Discussion -Response to teaching Verbalize understanding Compression Wraps & Stockings -Person Taught Patient -Teaching Method Discussion -Response to teaching Verbalize understanding Dressing Your Wound -Person Taught Patient Patient -Teaching Method Discussion Discussion -Response to teaching Verbalize Verbalize understanding understanding WC - Visit Discharge Discharge Condition Stable Stable Stable Ambulatory Status Ambulatory,Cane Ambulatory,Cane Ambulatory,Cane Transportation Private Auto Private Auto Medication Reconcilliation completed & Yes Yes provided to patient/care provider Clinical Summary of Care Provided Yes Yes 08/02/23 11:33 Wound Care Center Nurse 3 #3 right lateral ankle -Ulcer Cleansing -Foul Odor after Cleansing -Negative Pressure Wound Therapy -Primary Dressing Applied Mepilex Border -Other Dressing per gm rn -Primary Dressing Covered/Secured with -Aquacel Extra -Mepilex Border 1 #1- R LAT LE (P/O BASAL CELL CA) -Ulcer Cleansing -Foul Odor after Cleansing -Negative Pressure Wound Therapy -Primary Dressing Applied Mepilex Border -Other Dressing epimesh -Primary Dressing Covered/Secured with -Other Covering per gm rn -Mepilex Border 1 albert -Stockings -Other pts own stockings reapplied Treatment Response Procedure Tolerated Well Pain Scale: 0-10 Numeric Is Patient Pain Free? 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 All findings were discussed with the patient. All questions were answered to the patient's satisfaction. Excisional debridement down to and including soft tissue mass with a number 5 mm tumor curette to the proximal right ulceration. Predebridement measurement was 2.7 x 3.9 x 0.1 cm. Postdebridement measurements 2.8 x 3.0 x 0.1 cm. EpiMesh 4.0 x 4.5 cm was applied to the right proximal full-thickness ulceration with 100% use. Tenth application. The graft site was free and clear of any infection. The wound/skin graft substitute was dressed with nonadherent bandage secured in place with Steri-Strips followed by bolster dressing as well as a sin gle layer Tubigrip. Excisional debridement down to and including subcutaneous tissue with a number 5 mm dermal curette to the right distal ulceration without incident. Predebridement measurement is 1.4 x 0.8 x 0.1 cm. Postdebridement measurement is 1.5 x 1.0 x 0.1 cm. The biopsy results will be sent to the pathologist at [facility]. The patient will follow-up in 1 week for evaluation and results. Educated the patient to leave her right lower extremity dressing clean dry and intact do not remove or get it wet. She was educated on signs and symptoms of infection to call the wound care center for antibiotics if needed. She left the office pleased with the visit. (2) Non-pressure ulcer of right lower extremity with fat layer exposed: CODE(S): L97.912 - Non-pressure chronic ulcer of unspecified part of right lower leg with fat layer exposed (3) Venous ulcer of ankle: CODE(S): I83.003 - Varicose veins of unspecified lower extremity with ulcer of ankle; L97.309 - Non-pressure chronic ulcer of unspecified ankle with unspecified severity QUALIFIERS: Varicose vein presence: with varicose veins Laterality: right Non-pressure ulcer stage: limited to breakdown of skin Qualified Code(s): I83.013 - Varicose veins of right lower extremity with ulcer of ankle; L97.311 - Non-pressure chronic ulcer of right ankle limited to breakdown of skin
== END 2023-08-03 23:59 | disposition home or self-care (01) ==
LOC: WC 10:30
PROVIDERS: PCP Internal Medicine; Referring Provider Nurse Practitioner; Visit Provider Nurse Practitioner
DX: I83.013 Varicose veins of right lower extremity with ulcer of ankle (principal); L97.311 Non-pressure chronic ulcer of right ankle limited to breakdown of skin; C50.919 Malignant neoplasm of unspecified site of unspecified female breast; C44.722 Squamous cell carcinoma of skin of right lower limb, including hip; R60.0 Localized edema; T81.89XA Other complications of procedures, not elsewhere classified, initial encounter; Y83.8 Other surgical procedures as the cause of abnormal reaction of the patient, or of later complication, without mention of misadventure at the time of the procedure
CPT/HCPCS: 11042; 11104; 15271; 88305; 88312; Q4186

== ENCOUNTER 2023-08-30 08:15 | Outpatient (RCR) | payer MEDICARE, OTHER, SELFPAY ==
[2023-08-04 00:44] VITALS: BP 150/77; PULSE 74; RESP 18; TEMP 36
[2023-08-09 10:39] VITALS: BP 121/63; PULSE 64; RESP 20; TEMP 36.5
--- NOTE | 2023-08-09 11:35 | PN.PCM_ITS ---
History of Present Illness Date of Service: 08/09/23 Chief Complaint: Follow-up on her right lower leg lateral area wound nonhealing since at least November. History of Wound: 72-year-old white female in [place] where she is living during the winter. She had a growth removed from her right lateral lower leg. She is still not sure if it is cancer or not. After finally getting through to the dermatology she found that they never sent a biopsy off. She saw her own doctor up here and she was referred to us from her and put on cephalexin. Recently she was taken off her Lasix and has terrible edema of her lower extremities and abdomen. Patient states she has gained 9 pounds Patient had been referred to dermatology and has returned after they did Mohs surgery on her right lateral lower leg. They state they got all the cancer out. We will reapply for EpiFix to restart her. We will also also refer to Dr. Galaviz for vascular problems she is having in her right lower leg. Her biggest complaint is that she is swelling a lot in her lower extremities. Worried about a blood clot Now she has breast cancer and is being seen by oncology at [place] for that. She has left total mastectomy on 06/12/2023. She states she is healing well from that. Subjective Subjective Mrs. Negron is a 72-year-old female presenting to the wound care center today for follow-up and evaluation of her biopsy results to her upper right wound as w ell as follow-up with her right lower leg wound. Patient has been doing her home dressing changes as instructed. She denies any pain. She has been doing very well since her biopsy. She is anxious for her results. She denies trauma. Denies constitutional symptoms. No other pedal complaints at this time. Objective Data Objective Data Vital Signs: Vital Signs Temp Pulse Resp BP 97.7 F L 64 20 H 121/63 H 08/09/23 10:39 08/09/23 10:39 08/09/23 10:39 08/09/23 10:39 Physical Exam Narrative Neurovascular status is unchanged. Evidence of 2 full-thickness ulceration to the right lower extremity lateral aspect. Proximal ulceration shows evidence of skin island concern for benign versus malignant soft tissue growth. There is evidence of a thin epidermal layer appreciated to the full-thickness ulceration. Right distal lateral ulceration shows evidence of fibrogranular base with no drainage. The right proximal ulceration with concern of soft tissue growth measures 1.5 x 1.8 x 0.1 cm. The right lower ulceration measures 1.7 x 1.0 x 0.1 cm. The right lower extremities prepped and draped in normal aseptic manner. Verbal consent obtained from the patient. 1 cc of lidocaine with epinephrine was administered to the proximal ulceration. Using a sterile 3 mm biopsy. 3 punch biopsies were taken from 3 different sites of the soft tissue mass put in formalin and sent to pathology at [facility]. Excisional debridement down to and including soft tissue mass with a number 5 mm dermal curette to the proximal right ulceration. Predebridement measurement was 1.3 x 1.7 x 0.1 cm. Postdebridement measurements 1.5 x 1.8 x 0.1 cm. Excisional debridement down to and including subcutaneous tissue with a number 5 mm dermal curette to the right distal ulceration without incident. Predebridement measurement is 1.6 x 0.9 x 0.1 cm. Postdebridement measurement is 1.7 x 1.0 x 0.1 cm. Debridement Note Debridement Note Debridement Free Text: Excisional debridement down to and including soft tissue mass with a number 5 mm dermal curette to the proximal right ulceration. Predeb ridement measurement was 1.3 x 1.7 x 0.1 cm. Postdebridement measurements 1.5 x 1.8 x 0.1 cm. Excisional debridement down to and including subcutaneous tissue with a number 5 mm dermal curette to the right distal ulceration without incident. Predebridement measurement is 1.6 x 0.9 x 0.1 cm. Postdebridement measurement is 1.7 x 1.0 x 0.1 cm. Post-Debridement Measurements and Additional Note: Post-Debridement Measurements/Treatment - Nurse 1 - General Ulcer Assessment Start: 08/09/23 10:37 Freq: Status: Active Protocol: SAHIL Activity Type Activity Date Activity User E-sign Co-sign Detail Recorded Client Recorded Date Recorded By Document 08/09/23 10:39 DL Desktop 08/09/23 10:49 DL 08/09/23 10:39 - Today's Visit Information Type of service Follow-up Visit (Physician/COMMERCIAL REPORTER ) Arrival Mode Ambulatory,Cane Transfer Assistance None Patient Identification Verified (Name & Yes ) Patient Requires Transmission-Based No Precautions Vital Signs Temperature (97.8 F-99.1 F) 97.7 F L Temperature Source Temporal Pulse Rate (60-100) 64 Pulse Location Monitor Respiratory Rate (12-18) 20 H Respiratory rate source Observation Blood Pressure (90/60-120/80) 121/63 H Blood Pressure Mean (mm Hg) 82 Source Monitor History Since Last Visit- (Skip if this is Patient's initial visit) Have you changed medications since your No last visit? Any new allergies or adverse reactions No Had a fall/change in ADL's that may No increase risk of falls Signs or symptoms of abuse and/or No neglect since last visit Have you been in the hospital since your No last visit? Has dressing in place as prescribed Yes Has compression in place as prescribed No Has offloadiing in place as prescribed N/A Experienced any changes in pain level or Yes management Pain Scale: 0-10 Numeric Is Patient Pain Free? Yes WC - Nurse 1 - General Ulcer Measurement Start: 08/09/23 10:37 Freq: Status: Active Protocol: Activity Type Activity Date Activity User E-sign Co-sign Detail Recorded Client Recorded Date Recorded By Document 08/09/23 10:39 DL Desktop 08/09/23 10:49 DL 08/09/23 10:39 Wound Center Nurse 1 #3 right lateral ankle -Current Size (cm) - Length 1.5 -Current Size (cm) - Width 0.7 -Current Size (cm) - Depth 0.2 -Total Square Cm 1.05 -Photo Taken No -Epithelialization Medium 34-66% -Tunneling No -Undermining/Tunneling No -Circular Undermining No -Exudate Amt Medium -Exudate Type Serous -Wound Margin Distinct, Outline Attached -Granulation Amt Medium (34-66%) -Granulation Quality Red -Structure Exposed N/A -Texture (Elif-wound Skin Appearance) Assessed -Moisture (Elif-wound Skin Appearance) Assessed -Color (Elif-wound Skin Appearance) Assessed -Temperature (Elif-wound Skin No Abnormality Appearance) (Pt Warm) -Ulcer Cleansing Soap and Water -Foul Odor after Cleansing Yes -Anesthetic Used 5% Lidocaine Gel #1- R LAT LE (P/O BASAL CELL CA) -Current Size (cm) - Length 1.5 -Current Size (cm) - Width 1.4 -Current Size (cm) - Depth 1.2 -Total Square Cm 2.10 -Photo Taken No -Epithelialization Medium 34-66% -Tunneling No -Undermining/Tunneling No -Circular Undermining No -Exudate Amt Medium -Exudate Type Serous -Wound Margin Distinct, Outline Attached -Granulation Amt Medium (34-66%) -Granulation Quality Red -Slough/Fibrin No -Necrotic Tissue Type Adherent Slough -Structure Exposed N/A -Texture (Elif-wound Skin Appearance) Assessed -Moisture (Elif-wound Skin Appearance) Assessed -Color (Elif-wound Skin Appearance) Assessed -Temperature (Elif-wound Skin No Abnormality Appearance) (Pt Warm) -Tenderness on Palpation (Elif-wound No Skin Appearance) -Ulcer Cleansing Soap and Water -Foul Odor after Cleansing No -Anesthetic Used 5% Lidocaine Gel Right Calf (cm) 32.8 Right Ankle (cm) 23.5 WC - Nurse 2 - General Ulcer CM Notes Start: 08/09/23 10:37 Freq: Status: Active Protocol: Activity Type Activity Date Activity User E-sign Co-sign Detail Recorded Client Recorded Date Recorded By Document 08/09/23 11:08 Laptop 08/09/23 11:15 08/09/23 11:08 Wound Center Nurse 2 #3 right lateral ankle -Time 11:12 -Correct Patient Yes -Correct Side, Site, Position Yes -Correct Procedure Yes -Procedure Performed Yes -Type of Procedure Debridement -Clinical Debridement Subcutaneous -Tissue Removed Subcutaneous -Post Debridement (cm) - Length 1.7 -Post Debridement (cm) - Width 1.0 -Post Debridement (cm) - Depth 0.1 -Total Square (Post) (cm) 1.70 -Area of Debridement (cm) - Length 1.7 -Area of Debridement (cm) - Width 1.0 -Total Square (Area) (cm) 1.70 -Tunneling No -Undermining/Tunneling No -Circular Undermining No -Wound/Ulcer Outcome Not Healed -Ulcer Cleansing Rinsed/ Irrigated with Saline -Foul Odor after Cleansing No -Bioengineered Tissue No -Bleeding Controlled with Pressure -Treatment Response Procedure Tolerated Well -Offloading No -Debridement - Subq, 1st 20sq cm No #1- R LAT LE (P/O BASAL CELL CA) -Time 11:13 -Correct Patient Yes -Correct Side, Site, Position Yes -Correct Procedure Yes -Procedure Performed Yes -Type of Procedure Debridement -Clinical Debridement Subcutaneous -Tissue Removed Subcutaneous -Post Debridement (cm) - Length 1.5 -Post Debridement (cm) - Width 1.8 -Post Debridement (cm) - Depth 0.1 -Total Square (Post) (cm) 2.70 -Area of Debridement (cm) - Length 1.5 -Area of Debridement (cm) - Width 1.8 -Total Square (Area) (cm) 2.70 -Tunneling No -Undermining/Tunneling No -Circular Undermining No -Wound/Ulcer Outcome Not Healed -Ulcer Cleansing Rinsed/ Irrigated with Saline -Foul Odor after Cleansing No -Bioengineered Tissue No -Bleeding Controlled with Pressure -Treatment Response Procedure Tolerated Well -Offloading No -Debridement - Subq, 1st 20sq cm Yes Pain Scale: 0-10 Numeric Is Patient Pain Free? Yes - Nurse 3 - General Ulcer D/C NN Start: 08/09/23 10:37 Freq: Status: Active Protocol: Activity Type Activity Date Activity User E-sign Co-sign Detail Recorded Client Recorded Date Recorded By Document 08/09/23 11:24 KW Desktop 08/09/23 11:26 KW 08/09/23 11:24 Wound Care Center Nurse 3 #3 right lateral ankle -Primary Dressing Applied C Hydrogel ($), Mepilex Border, NonAdherent Contact Layer -Mepilex Border 1 #1- R LAT LE (P/O BASAL CELL CA) -Primary Dressing Applied Mepilex Border -Mepilex Border 1 Pain Scale: 0-10 Numeric Is Patient Pain Free? Yes WC - Visit Discharge Discharge Condition Stable Ambulatory Status Ambulatory Transportation Private Auto Medication Reconcilliation completed & No provided to patient/care provider Clinical Summary of Care Provided Yes Assessment/Plan Assessment/Plan (1) Non-pressure ulcer of right lower extremity with fat layer exposed: CODE(S): L97.912 - Non-pressure chronic ulcer of unspecified part of right lower leg with fat layer exposed PLAN: Patient was examined and evaluated. All findings were discussed with the patient. All questions were answered to the patient's satisfaction. Excisional debridement down to and including soft tissue mass with a number 5 mm tumor curette to the proximal right ulceration. Predebridement measurement was 1.3 x 1.7 x 0.1 cm. Postdebridement measurements 1.5 x 1.8 x 0.1 cm. Excisional debridement down to and including subcutaneous tissue with a number 5 mm dermal curette to the right distal ulceration without incident. Predebridement measurement is 1.6 x 0.9 x 0.1 cm. Postdebridement measurement is 1.7 x 1.0 x 0.1 cm. The patient's proximal ulceration was dressed with topical collagen hydrogel followed by dry sterile dressing, the distal ulceration was dressed with Tamara and dry sterile dressing. Patient was given the okay to wash her right lower extremity with orange Dial soap/antibacterial soap and dry well and apply home dressing changes as written. She is grateful for her care. The patient will follow-up with door at the wound care center in 1 week. 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 No evidence of malignancy. Negative for acid-fast bacilli and fungal organism
[2023-08-16 09:54] VITALS: BP 129/53; PULSE 58; RESP 18; TEMP 36.3
--- NOTE | 2023-08-16 12:03 | PCM.WC.PN ---
History of Present Illness Date of Service: 08/16/23 Chief Complaint: Follow-up on her right lower leg lateral area wound nonhealing since at least November. History of Wound: 72-year-old white female in [place] where she is living during the winter. She had a growth removed from her right lateral lower leg. She is still not sure if it is cancer or not. After finally getting through to the dermatology she found that they never sent a biopsy off. She saw her own doctor up here and she was referred to us from her and put on cephalexin. Recently she was taken off her Lasix and has terrible edema of her lower extremities and abdomen. Patient states she has gained 9 pounds Patient had been referred to dermatology and has returned after they did Mohs surgery on her right lateral lower leg. They state they got all the cancer out. We will reapply for EpiFix to restart her. We will also also refer to Dr. Galaviz for vascular problems she is having in her right lower leg. Her biggest complaint is that she is swelling a lot in her lower extremities. Worried about a blood clot Now she has breast cancer and is being seen by oncology at [place] for that. She has left total mastectomy on 06/12/2023. She states she is healing well from that. Progress of Wound: The right lateral francis area is improving and more shallow and smaller. Was seen last week by podiatry who biopsied it and seemed to improve it. The right lateral lower ulcer by her ankle seems to give her increase in pain and is not healing as well. Using hydrogel and Adaptic on wounds only for the last week. Will probably go back to the Fibracol and reapply for EpiFix for the ankle now. Measurements of all both are smaller but we will continue to monitor. No sign of infection at this time Subjective Subjective Patient agreeable to our plan Objective Data Objective Data Again the right lateral francis looks very good and is healing and that was the site that had cancer. The right ankle still open with depth but not infected. Vital Signs: Vital Signs Temp Pulse Resp BP 97.4 F L 58 L 18 129/53 H 08/16/23 09:54 08/16/23 09:54 08/16/23 09:54 08/16/23 09:54 Physical Exam Narrative Neurovascular status is unchanged. Evidence of 2 full-thickness ulceration to the right lower extremity lateral aspect. Proximal ulceration shows evidence of skin island concern for benign versus malignant soft tissue growth. There is evidence of a thin epidermal layer appreciated to the full-thickness ulceration. Right distal lateral ulceration shows evidence of fibrogranular base with no drainage. The right proximal ulceration with concern of soft tissue growth measures 2.8 x 3.0 x 0.1 cm. The right lower ulceration measures 1.5 x 1.0 x 0.1 cm. The right lower extremities prepped and draped in normal aseptic manner. Verbal consent obtained from the patient. 1 cc of lidocaine with epinephrine was administered to the proximal ulceration. Using a sterile 3 mm biopsy. 3 punch biopsies were taken from 3 different sites of the soft tissue mass put in formalin and sent to pathology at [facility]. Excisional debridement down to and including soft tissue mass with a number 5 mm tumor curette to the proximal right ulceration. Predebridement measurement was 2.7 x 3.9 x 0.1 cm. Postdebridement measurements 2.8 x 3.0 x 0.1 cm. EpiMesh 4.0 x 4.5 cm was applied to the right proximal full-thickness ulceration with 100% use. Tenth application. The graft site was free and clear of any infection. The wound/skin graft substitute was dressed with nonadherent bandage secured in place with Steri-Strips followed by bolster dressing as well as a single layer Tubigrip. Excisional debridement down to and including subcutaneous tissue with a number 5 mm dermal curette to the right distal ulceration without incident. Predebridement measurement is 1.4 x 0.8 x 0.1 cm. Postdebridement measurement is 1.5 x 1.0 x 0.1 cm. Const oriented x3 General Appearance: cooperative Exam Limitations: no limitations HEENT normocephalic Head and Scalp: normal to inspection Face and Sinus: normal facial exam Nose: external nose normal General Ear: hearing grossly impaired External Ear: external ears normal Mouth: oral and palatal mucosa normal Eyes PERRL General Eye: normal appearance of both eyes Neck full ROM General: normal visual inspection Resp normal respiratory effort Effort and Inspection: able to speak in complete sentences Auscultation: clear to auscultation bilaterally Cardio regular rate and regular rhythm Palpation: normal PMI Rate: regular rate Rhythm: regular rhythm GI Auscultation: normoactive bowel sounds Palpation: soft and no hepatosplenomegaly external exam normal Back/Spine Cervical Spine: cervical ROM normal Thoracic Spine / Upper Back: normal to inspection Lumbar Spine / Lower Back: normal to inspection Extremity normal to inspection General Extremity: normal exam except as noted Skin no rashes or lesions noted Neuro oriented x3 Psych Appearance: grossly normal Speech: normal speech Thought Content: normal thought content Judgement: judgement good Debridement Note Debridement Note Wound debrided: Right francis Laterality: Right Type of Debridement: Excisional debridement Anesthesia Used: 5% Lidocaine Gel Depth: Down to and including healthy tissue Percentage of wound debrided: 100 Instrument Used: 3mm curette Tissue Removed: Fibrin and slough Severity: Fat Layer Exposed Amount of bleeding with debridement: None Bleeding Controlled with: Compression and gauze Patient tolerated procedure: Patient tolerated procedure well Post-Debridement Measurements and Additional Note: Post-Debridement Measurements/Treatment - Nurse 1 - General Ulcer Assessment Start: 08/09/23 10:37 Freq: Status: Active Protocol: SAHIL Activity Type Activity Date Activity User E-sign Co-sign Detail Recorded Client Recorded Date Recorded By Document 08/09/23 10:39 DL Desktop 08/09/23 10:49 DL Document 08/16/23 09:54 DL Desktop 08/16/23 09:59 DL 08/09/23 08/16/23 10:39 09:54 - Today's Visit Information Type of service Follow-up Visit Follow-up Visit (Physician/TEMPLATE CLERK (Physician/TEMPLATE CLERK ) ) Arrival Mode Ambulatory,Cane Ambulatory,Cane Transfer Assistance None None Patient Identification Verified (Name & Yes Yes ) Patient Requires Transmission-Based No No Precautions Vital Signs Temperature (97.8 F-99.1 F) 97.7 F L 97.4 F L Temperature Source Temporal Temporal Pulse Rate (60-100) 64 58 L Pulse Location Monitor Monitor Respiratory Rate (12-18) 20 H 18 Respiratory rate source Observation Observation Blood Pressure (90/60-120/80) 121/63 H 129/53 H Blood Pressure Mean (mm Hg) 82 78 Source Monitor Monitor History Since Last Visit- (Skip if this is Patient's initial visit) Have you changed medications since your No No last visit? Any new allergies or adverse reactions No No Had a fall/change in ADL's that may No No increase risk of falls Signs or symptoms of abuse and/or No No neglect since last visit Have you been in the hospital since your No No last visit? Has dressing in place as prescribed Yes Yes Has compression in place as prescribed No Yes Has offloadiing in place as prescribed N/A N/A Experienced any changes in pain level or Yes No management Pain Scale: 0-10 Numeric Is Patient Pain Free? Yes No WC - Nurse 1 - General Ulcer Measurement Start: 08/09/23 10:37 Freq: Status: Active Protocol: Activity Type Activity Date Activity User E-sign Co-sign Detail Recorded Client Recorded Date Recorded By Document 08/09/23 10:39 DL Desktop 08/09/23 10:49 DL Document 08/16/23 09:54 DL Desktop 08/16/23 09:59 DL 08/09/23 08/16/23 10:39 09:54 Wound Center Nurse 1 #3 right lateral ankle -Current Size (cm) - Length 1.5 1.3 -Current Size (cm) - Width 0.7 1.7 -Current Size (cm) - Depth 0.2 0.4 -Total Square Cm 1.05 2.21 -Photo Taken No -Epithelialization Medium 34-66% -Tunneling No -Undermining/Tunneling No -Circular Undermining No -Exudate Amt Medium Medium -Exudate Type Serous Serosanguineous -Wound Margin Distinct, Distinct, Outline Outline Attached Attached -Granulation Amt Medium (34-66%) Medium (34-66%) -Granulation Quality Red Red -Necrosis Amt Medium (34-66%) -Necrotic Tissue Type Adherent Slough -Structure Exposed N/A N/A -Texture (Elif-wound Skin Appearance) Assessed Scarring -Moisture (Elif-wound Skin Appearance) Assessed No Abnormality -Color (Elif-wound Skin Appearance) Assessed Erythema, Hemosiderin Staining -Temperature (Elif-wound Skin No Abnormality No Abnormality Appearance) (Pt Warm) (Pt Warm) -Ulcer Cleansing Soap and Water Soap and Water -Foul Odor after Cleansing Yes No -Anesthetic Used 5% Lidocaine 5% Lidocaine Gel Gel -Wound Comment(s) C/O being tender more lately. #1- R LAT LE (P/O BASAL CELL CA) -Current Size (cm) - Length 1.5 1.5 -Current Size (cm) - Width 1.4 1.6 -Current Size (cm) - Depth 1.2 0.1 -Total Square Cm 2.10 2.40 -Photo Taken No -Epithelialization Medium 34-66% -Tunneling No -Undermining/Tunneling No -Circular Undermining No -Exudate Amt Medium Medium -Exudate Type Serous Serosanguineous -Wound Margin Distinct, Distinct, Outline Outline Attached Attached -Granulation Amt Medium (34-66%) Medium (34-66%) -Granulation Quality Red Red -Slough/Fibrin No -Necrosis Amt Medium (34-66%) -Necrotic Tissue Type Adherent Slough Adherent Slough -Structure Exposed N/A N/A -Texture (Elif-wound Skin Appearance) Assessed Scarring -Moisture (Elif-wound Skin Appearance) Assessed No Abnormality -Color (Elif-wound Skin Appearance) Assessed Erythema, Hemosiderin Staining -Temperature (Elif-wound Skin No Abnormality No Abnormality Appearance) (Pt Warm) (Pt Warm) -Tenderness on Palpation (Elif-wound No No Skin Appearance) -Ulcer Cleansing Soap and Water Soap and Water -Foul Odor after Cleansing No No -Anesthetic Used 5% Lidocaine 5% Lidocaine Gel Gel Right Calf (cm) 32.8 32.5 Right Ankle (cm) 23.5 Point of Measurement (cm from the medial 23 instep) WC - Nurse 2 - General Ulcer CM Notes Start: 08/09/23 10:37 Freq: Status: Active Protocol: Activity Type Activity Date Activity User E-sign Co-sign Detail Recorded Client Recorded Date Recorded By Document 08/09/23 11:08 Laptop 08/09/23 11:15 Document 08/16/23 10:06 Desktop 08/16/23 10:14 08/09/23 08/16/23 11:08 10:06 Wound Center Nurse 2 #3 right lateral ankle -Time 11:12 10:06 -Correct Patient Yes Yes -Correct Side, Site, Position Yes Yes -Correct Procedure Yes Yes -Procedure Performed Yes Yes -Type of Procedure Debridement Debridement -Clinical Debridement Subcutaneous Subcutaneous -Tissue Removed Subcutaneous Subcutaneous -Post Debridement (cm) - Length 1.7 1.2 -Post Debridement (cm) - Width 1.0 1.2 -Post Debridement (cm) - Depth 0.1 0.3 -Total Square (Post) (cm) 1.70 1.44 -Area of Debridement (cm) - Length 1.7 1.2 -Area of Debridement (cm) - Width 1.0 1.2 -Total Square (Area) (cm) 1.70 1.44 -Tunneling No No -Undermining/Tunneling No No -Circular Undermining No No -Wound/Ulcer Outcome Not Healed Not Healed -Ulcer Cleansing Rinsed/ Rinsed/ Irrigated with Irrigated with Saline Saline -Foul Odor after Cleansing No No -Bioengineered Tissue No No -Bleeding Controlled with Pressure Pressure -Treatment Response Procedure Procedure Tolerated Well Tolerated Well -Offloading No No -Debridement - Subq, 1st 20sq cm No Yes #1- R LAT LE (P/O BASAL CELL CA) -Time 11:13 10:06 -Correct Patient Yes Yes -Correct Side, Site, Position Yes Yes -Correct Procedure Yes Yes -Procedure Performed Yes Yes -Type of Procedure Debridement Debridement -Clinical Debridement Subcutaneous Subcutaneous -Tissue Removed Subcutaneous Subcutaneous -Post Debridement (cm) - Length 1.5 1.3 -Post Debridement (cm) - Width 1.8 2.0 -Post Debridement (cm) - Depth 0.1 0.1 -Total Square (Post) (cm) 2.70 2.60 -Area of Debridement (cm) - Length 1.5 1.3 -Area of Debridement (cm) - Width 1.8 2.0 -Total Square (Area) (cm) 2.70 2.60 -Tunneling No No -Undermining/Tunneling No No -Circular Undermining No No -Wound/Ulcer Outcome Not Healed Not Healed -Ulcer Cleansing Rinsed/ Rinsed/ Irrigated with Irrigated with Saline Saline -Foul Odor after Cleansing No No -Bioengineered Tissue No No -Bleeding Controlled with Pressure Pressure -Treatment Response Procedure Procedure Tolerated Well Tolerated Well -Offloading No No -Debridement - Subq, 1st 20sq cm Yes No Pain Scale: 0-10 Numeric Is Patient Pain Free? Yes Yes WC - Nurse 3 - General Ulcer D/C NN Start: 08/09/23 10:37 Freq: Status: Active Protocol: Activity Type Activity Date Activity User E-sign Co-sign Detail Recorded Client Recorded Date Recorded By Document 08/09/23 11:24 KW Desktop 08/09/23 11:26 KW Document 08/16/23 10:32 DL Desktop 08/16/23 10:34 DL 08/09/23 08/16/23 11:24 10:32 Wound Care Center Nurse 3 #3 right lateral ankle -Ulcer Cleansing Rinsed/ Irrigated with Saline -Foul Odor after Cleansing No -Primary Dressing Applied C Hydrogel ($), Fibracol Plus Mepilex Border, 4x4,Mepilex NonAdherent Border Contact Layer -Fibracol Plus 4x4 1 -Mepilex Border 1 1 #1- R LAT LE (P/O BASAL CELL CA) -Ulcer Cleansing Rinsed/ Irrigated with Saline -Foul Odor after Cleansing No -Primary Dressing Applied Mepilex Border Mepilex Border -Other Dressing fibricol -Mepilex Border 1 1 albert -Stockings Yes Treatment Response Procedure Tolerated Well Pain Scale: 0-10 Numeric Is Patient Pain Free? Yes Yes WC - Visit Discharge Discharge Condition Stable Stable Ambulatory Status Ambulatory Ambulatory,Cane Transportation Private Auto Private Auto Medication Reconcilliation completed & No provided to patient/care provider Clinical Summary of Care Provided Yes Additional Wound Wound debrided: Right ankle venous ulcer Type of Debridement: Excisional debridement Anesthesia Used: 5% Lidocaine Gel Depth: Down to and including healthy tissue Percentage of wound debrided: 100 Instrument Used: 5mm curette Tissue Removed: Slough and fibrin Severity: Fat Layer Exposed Amount of bleeding with debridement: Mild Bleeding Controlled with: Compression and gauze Patient tolerated procedure: Patient tolerated procedure well Assessment/Plan Assessment/Plan (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: CODE(S): C44.721 - Squamous cell carcinoma of skin of unspecified lower limb, including hip QUALIFIERS: Laterality: right Qualified Code(s): C44.722 - Squamous cell carcinoma of skin of right lower limb, including hip PLAN: Wash wound with antibacterial soap and water and apply fibrin call to wound base cover with Adaptic and an absorbent dressing (2) Venous ulcer of ankle: CODE(S): I83.003 - Varicose veins of unspecified lower extremity with ulcer of ankle; L97.309 - Non-pressure chronic ulcer of unspecified ankle with unspecified severity QUALIFIERS: Varicose vein presence: with varicose veins Laterality: right Non-pressure ulcer stage: limited to breakdown of skin Qualified Code(s): I83.013 - Varicose veins of right lower extremity with ulcer of ankle; L97.311 - Non-pressure chronic ulcer of right ankle limited to breakdown of skin PLAN: Refer to Dr. Galaviz for her right lower leg edema and abnormal venous ultrasounds. Obvious occlusions to her GSV's and she has discoloration to the leg with swelling and pain. (3) Non-pressure ulcer of right lower extremity: CODE(S): L97.919 - Non-pressure chronic ulcer of unspecified part of right lower leg with unspecified severity QUALIFIERS: Non-pressure ulcer stage: with fat layer exposed Qualified Code(s): L97.912 - Non-pressure chronic ulcer of unspecified part of right lower leg with fat layer exposed PLAN: Wash the right lateral ankle wounds with an antibacterial soap and water pat dry apply Fibracol moistened cover with gauze and dressings daily. Wear a double layer Tubigrip Follow-up in 1 week (4) Nonhealing nonsurgical wound: CODE(S): T14.8XXA - Other injury of unspecified body region, initial encounter
--- NOTE | 2023-08-23 | LES_PTH ---
PATHOLOGY RESULTS PATIENT: MARY ALICE GA LOC: U#:[id number] AGE/SX: 72/F ROOM: RE08/30/[address]: SAMUEL Grigsby : 1950 BED: DIS: 09/03/2023 SPEC #: [id number] RECD: 08/23/23 13:17 STATUS: KATHRYN MAYENStephan #: [id number] TED: 08/23/23 00:[address]: Mariela Martines NP DEPT: SURGICAL PATHOLOGY RECD BY: Ruslan Briones ENTERED: 08/23/23 13:17 SP TYPE: Lesion OTHR DR: Dr. Ernesto Rodriguez MD Tissues: Skin of ankle and foot Procedures: Special Stain Group I Surgery Specimen Level IV GMS Stain (control) HEADER OPERATION: Right lateral ankle ulcer biopsy PRE-OP DIAGNOSIS: History of squamous cell non healing leg ulcer right lateral ankle TISSUE SUBMITTED: Right lateral ankle ulcer MICROSCOPIC DIAGNOSIS Right lateral ankle ulcer, punch biopsy: Ulceration with associated acute and chronic inflammation and granulation. Negative for fungal organisms. See comment. AM:candice 08/24/2023 COMMENT GMS stain with matched control was used in the evaluation of this case. MICROSCOPIC DESCRIPTION Slides are reviewed. GROSS DESCRIPTION Received fresh in normal saline and post fixed in formalin is one container labeled with the patient's name and designated right lateral ankle. The specimen consists of a punch biopsy of cruz-white skin measuring 0.2 cm in diameter and 0.5 cm in length. The specimen is totally submitted in one cassette. / REX:candice 08/23/2023 TC:2 CPT: 07963, 66932
[2023-08-23 09:40] VITALS: BP 140/60; PULSE 62; RESP 20; TEMP 35.9
--- NOTE | 2023-08-23 10:14 | PCM.WC.PN ---
History of Present Illness Date of Service: 08/23/23 Chief Complaint: Follow-up on her right lower leg lateral area wound nonhealing since at least November. History of Wound: 72-year-old white female in [place] where she is living during the winter. She had a growth removed from her right lateral lower leg. She is still not sure if it is cancer or not. After finally getting through to the dermatology she found that they never sent a biopsy off. She saw her own doctor up here and she was referred to us from her and put on cephalexin. Recently she was taken off her Lasix and has terrible edema of her lower extremities and abdomen. Patient states she has gained 9 pounds Patient had been referred to dermatology and has returned after they did Mohs surgery on her right lateral lower leg. They state they got all the cancer out. We will reapply for EpiFix to restart her. We will also also refer to Dr. Galaviz for vascular problems she is having in her right lower leg. Her biggest complaint is that she is swelling a lot in her lower extremities. Worried about a blood clot Now she has breast cancer and is being seen by oncology at [facility] for that. She has left total mastectomy on 06/12/2023. She states she is healing well from that. Progress of Wound: Right lateral francis still open superficial no sign of infection. The right lateral ankle ulcer continues to be very painful some reddened areas around it slough in the base. Will order a biopsy to make sure there is no cancer in this before we proceed with using up her skin subs. Cultures were positive patient is already started on her antibiotic yesterday only started Subjective Subjective Patient is agreeable to biopsy and finding out there is any cancer in that wound Objective Data Objective Data Measurements are a little bit bigger depth is the same still click slough very painful Vital Signs: Vital Signs Temp Pulse Resp BP 96.7 F L 62 20 H 140/60 H 08/23/23 09:40 08/23/23 09:40 08/23/23 09:40 08/23/23 09:40 Lab / Micro Data Attestation: I reviewed the patient's lab results. Micro: Microbiology 08/16/23 10:10 Wound - Ankle Gram Stain - Final 08/16/23 10:10 Wound - Ankle Wound Culture - Final Acinetobacter baumannii 08/16/23 10:10 Wound - Ankle Anaerobic Culture - Final No growth in 5 days. Physical Exam Const oriented x3 General Appearance: cooperative Exam Limitations: no limitations HEENT normocephalic Head and Scalp: normal to inspection Face and Sinus: normal facial exam Nose: external nose normal General Ear: hearing grossly impaired External Ear: external ears normal Mouth: oral and palatal mucosa normal Eyes PERRL General Eye: normal appearance of both eyes Neck full ROM General: normal visual inspection Resp normal respiratory effort Effort and Inspection: able to speak in complete sentences Auscultation: clear to auscultation bilaterally Cardio regular rate and regular rhythm Palpation: normal PMI Rate: regular rate Rhythm: regular rhythm GI Auscultation: normoactive bowel sounds Palpation: soft and no hepatosplenomegaly external exam normal Back/Spine Cervical Spine: cervical ROM normal Thoracic Spine / Upper Back: normal to inspection Lumbar Spine / Lower Back: normal to inspection Extremity normal to inspection General Extremity: normal exam except as noted Skin no rashes or lesions noted Neuro oriented x3 Psych Appearance: grossly normal Speech: normal speech Thought Content: normal thought content Judgement: judgement good Debridement Note Debridement Note Wound debrided: Right francis Laterality: Right Type of Debridement: Excisional debridement Anesthesia Used: 5% Lidocaine Gel Depth: Down to and including healthy tissue Percentage of wound debrided: 100 Instrument Used: 5mm curette Tissue Removed: Fibrin Severity: Limited To Skin Breakdown Amount of bleeding with debridement: Mild Bleeding Controlled with: Compression and gauze Patient tolerated procedure: Patient tolerated procedure well Post-Debridement Measurements and Additional Note: Post-Debridement Measurements/Treatment - Nurse 1 - General Ulcer Assessment Start: 08/09/23 10:37 Freq: Status: Active Protocol: SAHIL Activity Type Activity Date Activity User E-sign Co-sign Detail Recorded Client Recorded Date Recorded By Document 08/09/23 10:39 DL Desktop 08/09/23 10:49 DL Document 08/16/23 09:54 DL Desktop 08/16/23 09:59 DL Document 08/23/23 09:40 DL Desktop 08/23/23 09:47 DL 08/09/23 08/16/23 08/23/23 10:39 09:54 09:40 - Today's Visit Information Type of service Follow-up Visit Follow-up Visit Follow-up Visit (Physician/MULTIMEDIA MANAGER (Physician/MULTIMEDIA MANAGER (Physician/MULTIMEDIA MANAGER ) ) ) Arrival Mode Ambulatory,Cane Ambulatory,Cane Ambulatory,Cane Transfer Assistance None None None Patient Identification Verified (Name & Yes Yes Yes ) Patient Requires Transmission-Based No No No Precautions Vital Signs Temperature (97.8 F-99.1 F) 97.7 F L 97.4 F L 96.7 F L Temperature Source Temporal Temporal Temporal Pulse Rate (60-100) 64 58 L 62 Pulse Location Monitor Monitor Monitor Respiratory Rate (12-18) 20 H 18 20 H Respiratory rate source Observation Observation Observation Blood Pressure (90/60-120/80) 121/63 H 129/53 H 140/60 H Blood Pressure Mean (mm Hg) 82 78 86 Source Monitor Monitor Monitor History Since Last Visit- (Skip if this is Patient's initial visit) Have you changed medications since your No No No last visit? Any new allergies or adverse reactions No No No Had a fall/change in ADL's that may No No No increase risk of falls Signs or symptoms of abuse and/or No No No neglect since last visit Have you been in the hospital since your No No No last visit? Has dressing in place as prescribed Yes Yes Yes Has compression in place as prescribed No Yes Yes Has offloadiing in place as prescribed N/A N/A N/A Experienced any changes in pain level or Yes No No management Pain Scale: 0-10 Numeric Is Patient Pain Free? Yes No Yes WC - Nurse 1 - General Ulcer Measurement Start: 08/09/23 10:37 Freq: Status: Active Protocol: Activity Type Activity Date Activity User E-sign Co-sign Detail Recorded Client Recorded Date Recorded By Document 08/09/23 10:39 DL Desktop 08/09/23 10:49 DL Document 08/16/23 09:54 DL Desktop 08/16/23 09:59 DL Document 08/23/23 09:40 DL Desktop 08/23/23 09:47 DL 08/09/23 08/16/23 08/23/23 10:39 09:54 09:40 Wound Center Nurse 1 #3 right lateral ankle -Current Size (cm) - Length 1.5 1.3 1.2 -Current Size (cm) - Width 0.7 1.7 1.3 -Current Size (cm) - Depth 0.2 0.4 0.3 -Total Square Cm 1.05 2.21 1.56 -Photo Taken No -Epithelialization Medium 34-66% -Tunneling No -Undermining/Tunneling No -Circular Undermining No -Exudate Amt Medium Medium Medium -Exudate Type Serous Serosanguineous Serosanguineous -Wound Margin Distinct, Distinct, Distinct, Outline Outline Outline Attached Attached Attached -Granulation Amt Medium (34-66%) Medium (34-66%) Medium (34-66%) -Granulation Quality Red Red Daggett -Necrosis Amt Medium (34-66%) Medium (34-66%) -Necrotic Tissue Type Adherent Slough Adherent Slough -Structure Exposed N/A N/A N/A -Texture (Elif-wound Skin Appearance) Assessed Scarring Scarring -Moisture (Elif-wound Skin Appearance) Assessed No Abnormality No Abnormality -Color (Elif-wound Skin Appearance) Assessed Erythema, Hemosiderin Hemosiderin Staining Staining -Temperature (Elif-wound Skin No Abnormality No Abnormality No Abnormality Appearance) (Pt Warm) (Pt Warm) (Pt Warm) -Tenderness on Palpation (Elif-wound Yes Skin Appearance) -Ulcer Cleansing Soap and Water Soap and Water Soap and Water -Foul Odor after Cleansing Yes No No -Anesthetic Used 5% Lidocaine 5% Lidocaine 5% Lidocaine Gel Gel Gel -Wound Comment(s) C/O being tender more lately. #1- R LAT LE (P/O BASAL CELL CA) -Current Size (cm) - Length 1.5 1.5 1.2 -Current Size (cm) - Width 1.4 1.6 1.3 -Current Size (cm) - Depth 1.2 0.1 0.1 -Total Square Cm 2.10 2.40 1.56 -Photo Taken No -Epithelialization Medium 34-66% -Tunneling No -Undermining/Tunneling No -Circular Undermining No -Exudate Amt Medium Medium Medium -Exudate Type Serous Serosanguineous Serosanguineous -Wound Margin Distinct, Distinct, Distinct, Outline Outline Outline Attached Attached Attached -Granulation Amt Medium (34-66%) Medium (34-66%) Medium (34-66%) -Granulation Quality Red Red Red -Slough/Fibrin No -Necrosis Amt Medium (34-66%) Medium (34-66%) -Necrotic Tissue Type Adherent Slough Adherent Slough Adherent Slough -Structure Exposed N/A N/A N/A -Texture (Elif-wound Skin Appearance) Assessed Scarring Scarring -Moisture (Elif-wound Skin Appearance) Assessed No Abnormality No Abnormality -Color (Elif-wound Skin Appearance) Assessed Erythema, No Abnormality, Hemosiderin Hemosiderin Staining Staining -Temperature (Elif-wound Skin No Abnormality No Abnormality Appearance) (Pt Warm) (Pt Warm) -Tenderness on Palpation (Elif-wound No No No Skin Appearance) -Ulcer Cleansing Soap and Water Soap and Water Soap and Water -Foul Odor after Cleansing No No No -Anesthetic Used 5% Lidocaine 5% Lidocaine 5% Lidocaine Gel Gel Gel Right Calf (cm) 32.8 32.5 33.3 Right Ankle (cm) 23.5 23.5 Point of Measurement (cm from the medial 23 instep) WC - Nurse 2 - General Ulcer CM Notes Start: 08/09/23 10:37 Freq: Status: Active Protocol: Activity Type Activity Date Activity User E-sign Co-sign Detail Recorded Client Recorded Date Recorded By Document 08/09/23 11:08 JF Laptop 08/09/23 11:15 JF Document 08/16/23 10:06 MW Desktop 08/16/23 10:14 MW Document 08/23/23 09:57 MW Desktop 08/23/23 10:10 MW 08/09/23 08/16/23 08/23/23 11:08 10:06 09:57 Wound Center Nurse 2 #3 right lateral ankle -Time 11:12 10:06 09:57 -Correct Patient Yes Yes Yes -Correct Side, Site, Position Yes Yes Yes -Correct Procedure Yes Yes Yes -Procedure Performed Yes Yes Yes -Type of Procedure Debridement Debridement Debridement -Clinical Debridement Subcutaneous Subcutaneous Subcutaneous -Tissue Removed Subcutaneous Subcutaneous Subcutaneous -Post Debridement (cm) - Length 1.7 1.2 1.3 -Post Debridement (cm) - Width 1.0 1.2 1.3 -Post Debridement (cm) - Depth 0.1 0.3 0.3 -Total Square (Post) (cm) 1.70 1.44 1.69 -Area of Debridement (cm) - Length 1.7 1.2 1.3 -Area of Debridement (cm) - Width 1.0 1.2 1.3 -Total Square (Area) (cm) 1.70 1.44 1.69 -Tunneling No No No -Undermining/Tunneling No No No -Circular Undermining No No No -Wound/Ulcer Outcome Not Healed Not Healed Not Healed -Ulcer Cleansing Rinsed/ Rinsed/ Rinsed/ Irrigated with Irrigated with Irrigated with Saline Saline Saline -Foul Odor after Cleansing No No No -Bioengineered Tissue No No No -Bleeding Controlled with Pressure Pressure Pressure -Treatment Response Procedure Procedure Procedure Tolerated Well Tolerated Well Tolerated Well -Offloading No No No -Debridement - Subq, 1st 20sq cm No Yes Yes #1- R LAT LE (P/O BASAL CELL CA) -Time 11:13 10:06 09:57 -Correct Patient Yes Yes Yes -Correct Side, Site, Position Yes Yes Yes -Correct Procedure Yes Yes Yes -Procedure Performed Yes Yes Yes -Type of Procedure Debridement Debridement Debridement -Clinical Debridement Subcutaneous Subcutaneous Subcutaneous -Tissue Removed Subcutaneous Subcutaneous Subcutaneous -Post Debridement (cm) - Length 1.5 1.3 1.8 -Post Debridement (cm) - Width 1.8 2.0 1.0 -Post Debridement (cm) - Depth 0.1 0.1 0.1 -Total Square (Post) (cm) 2.70 2.60 1.80 -Area of Debridement (cm) - Length 1.5 1.3 1.8 -Area of Debridement (cm) - Width 1.8 2.0 1.0 -Total Square (Area) (cm) 2.70 2.60 1.80 -Tunneling No No No -Undermining/Tunneling No No No -Circular Undermining No No No -Wound/Ulcer Outcome Not Healed Not Healed Not Healed -Ulcer Cleansing Rinsed/ Rinsed/ Rinsed/ Irrigated with Irrigated with Irrigated with Saline Saline Saline -Foul Odor after Cleansing No No No -Bioengineered Tissue No No No -Bleeding Controlled with Pressure Pressure Pressure -Treatment Response Procedure Procedure Procedure Tolerated Well Tolerated Well Tolerated Well -Offloading No No No -Debridement - Subq, 1st 20sq cm Yes No No Pain Scale: 0-10 Numeric Is Patient Pain Free? Yes Yes Yes WC - Nurse 3 - General Ulcer D/C NN Start: 08/09/23 10:37 Freq: Status: Active Protocol: Activity Type Activity Date Activity User E-sign Co-sign Detail Recorded Client Recorded Date Recorded By Document 08/09/23 11:24 KW Desktop 08/09/23 11:26 KW Document 08/16/23 10:32 DL Desktop 08/16/23 10:34 DL 08/09/23 08/16/23 11:24 10:32 Wound Care Center Nurse 3 #3 right lateral ankle -Ulcer Cleansing Rinsed/ Irrigated with Saline -Foul Odor after Cleansing No -Primary Dressing Applied C Hydrogel ($), Fibracol Plus Mepilex Border, 4x4,Mepilex NonAdherent Border Contact Layer -Fibracol Plus 4x4 1 -Mepilex Border 1 1 #1- R LAT LE (P/O BASAL CELL CA) -Ulcer Cleansing Rinsed/ Irrigated with Saline -Foul Odor after Cleansing No -Primary Dressing Applied Mepilex Border Mepilex Border -Other Dressing fibricol -Mepilex Border 1 1 albert -Stockings Yes Treatment Response Procedure Tolerated Well Pain Scale: 0-10 Numeric Is Patient Pain Free? Yes Yes WC - Visit Discharge Discharge Condition Stable Stable Ambulatory Status Ambulatory Ambulatory,Cane Transportation Private Auto Private Auto Medication Reconcilliation completed & No provided to patient/care provider Clinical Summary of Care Provided Yes Additional Wound Wound debrided: Right ankle venous ulcer Type of Debridement: Excisional debridement Anesthesia Used: 5% Lidocaine Gel and - (1% with epi injected to the edge of the wound and 3 mm biopsy obtained tolerated well) Depth: in the subcutaneous layer Percentage of wound debrided: 100 Instrument Used: 3mm curette Tissue Removed: Slough and fibrin Severity: Fat Layer Exposed Amount of bleeding with debridement: Mild Bleeding Controlled with: Gel Foam Patient tolerated procedure: Patient tolerated procedure well Assessment/Plan Assessment/Plan (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: CODE(S): C44.721 - Squamous cell carcinoma of skin of unspecified lower limb, including hip QUALIFIERS: Laterality: right Qualified Code(s): C44.722 - Squamous cell carcinoma of skin of right lower limb, including hip PLAN: Wash wound with antibacterial soap and water and apply fibrocol to wound base cover with Adaptic and an absorbent dressing (2) Venous ulcer of ankle: CODE(S): I83.003 - Varicose veins of unspecified lower extremity with ulcer of ankle; L97.309 - Non-pressure chronic ulcer of unspecified ankle with unspecified severity QUALIFIERS: Varicose vein presence: with varicose veins Laterality: right Non-pressure ulcer stage: limited to breakdown of skin Qualified Code(s): I83.013 - Varicose veins of right lower extremity with ulcer of ankle; L97.311 - Non-pressure chronic ulcer of right ankle limited to breakdown of skin PLAN: Refer to Dr. Galaviz for her right lower leg edema and abnormal venous ultrasounds. Obvious occlusions to her GSV's and she has discoloration to the leg with swelling and pain. (3) Non-pressure ulcer of right lower extremity: CODE(S): L97.919 - Non-pressure chronic ulcer of unspecified part of right lower leg with unspecified severity QUALIFIERS: Non-pressure ulcer stage: with fat layer exposed Qualified Code(s): L97.912 - Non-pressure chronic ulcer of unspecified part of right lower leg with fat layer exposed PLAN: Wash the right lateral ankle wounds with an antibacterial soap and water pat dry apply Fibracol moistened cover with gauze and dressings daily. Wear a double layer Tubigrip Follow-up in 1 week Biopsy obtained 3 mm sent to pathology we will call with results Patient is to continue antibiotic therapy for the infection. (4) Nonhealing nonsurgical wound: CODE(S): T14.8XXA - Other injury of unspecified body region, initial encounter
[2023-08-30 08:36] VITALS: BP 135/66; PULSE 63; RESP 16; TEMP 36
--- NOTE | 2023-08-30 10:50 | PCM.WC.PN ---
History of Present Illness Date of Service: 08/30/23 Chief Complaint: Follow-up on her right lower leg lateral area wound nonhealing since at least November. History of Wound: 72-year-old white female in [place] where she is living during the winter. She had a growth removed from her right lateral lower leg. She is still not sure if it is cancer or not. After finally getting through to the dermatology she found that they never sent a biopsy off. She saw her own doctor up here and she was referred to us from her and put on cephalexin. Recently she was taken off her Lasix and has terrible edema of her lower extremities and abdomen. Patient states she has gained 9 pounds Patient had been referred to dermatology and has returned after they did Mohs surgery on her right lateral lower leg. They state they got all the cancer out. We will reapply for EpiFix to restart her. We will also also refer to Dr. Galaviz for vascular problems she is having in her right lower leg. Her biggest complaint is that she is swelling a lot in her lower extremities. Worried about a blood clot Now she has breast cancer and is being seen by oncology at [facility] for that. She has left total mastectomy on 06/12/2023. She states she is healing well from that. Progress of Wound: Right lateral francis still open superficial no sign of infection and much smaller. The right lateral ankle ulcer continues to be very painful some reddened areas around it slough in the base. The biopsy came back negative just inflammation. Cultures were positive though and patient is still finishing up her antibiotic therapy. Will go ahead and start the EpiFix this week and see if we can get this thing closed. Subjective Subjective Patient is agreeable to plan still has tenderness and soreness around that ankle ulcer. Objective Data Objective Data Again the ankle ulcer is open biopsy was negative for cancer. The swelling and pain is still there around the ulcer. Will go ahead and start her on the EpiFix #1 today Vital Signs: Vital Signs Temp Pulse Resp BP O2 Del Method 96.8 F L 63 16 135/66 H Room Air 08/30/23 08:36 08/30/23 08:36 08/30/23 08:36 08/30/23 08:36 08/30/23 08:36 Oxygen Delivery Method Room Air Lab / Micro Data Attestation: I reviewed the patient's lab results. Micro: Microbiology 08/16/23 10:10 Wound - Ankle Gram Stain - Final 08/16/23 10:10 Wound - Ankle Wound Culture - Final Acinetobacter baumannii 08/16/23 10:10 Wound - Ankle Anaerobic Culture - Final No growth in 5 days. Physical Exam Const oriented x3 General Appearance: cooperative Exam Limitations: no limitations HEENT normocephalic Head and Scalp: normal to inspection Face and Sinus: normal facial exam Nose: external nose normal General Ear: hearing grossly impaired External Ear: external ears normal Mouth: oral and palatal mucosa normal Eyes PERRL General Eye: normal appearance of both eyes Neck full ROM General: normal visual inspection Resp normal respiratory effort Effort and Inspection: able to speak in complete sentences Auscultation: clear to auscultation bilaterally Cardio regular rate and regular rhythm Palpation: normal PMI Rate: regular rate Rhythm: regular rhythm GI Auscultation: normoactive bowel sounds Palpation: soft and no hepatosplenomegaly external exam normal Back/Spine Cervical Spine: cervical ROM normal Thoracic Spine / Upper Back: normal to inspection Lumbar Spine / Lower Back: normal to inspection Extremity normal to inspection General Extremity: normal exam except as noted Skin no rashes or lesions noted Neuro oriented x3 Psych Appearance: grossly normal Speech: normal speech Thought Content: normal thought content Judgement: judgement good Debridement Note Debridement Note Wound debrided: Right francis Laterality: Right Type of Debridement: Excisional debridement Anesthesia Used: 5% Lidocaine Gel Depth: Down to and including healthy tissue Percentage of wound debrided: 100 Instrument Used: 3mm curette Tissue Removed: Fibrin Severity: Limited To Skin Breakdown Amount of bleeding with debridement: None Bleeding Controlled with: Pressure Patient tolerated procedure: Patient tolerated procedure well Post-Debridement Measurements and Additional Note: Post-Debridement Measurements/Treatment WC - Nurse 1 - General Ulcer Assessment Start: 08/09/23 10:37 Freq: Status: Active Protocol: [email or web address].[email or web address] Activity Type Activity Date Activity User E-sign Co-sign Detail Recorded Client Recorded Date Recorded By Document 08/09/23 10:39 DL Desktop 08/09/23 10:49 DL Document 08/16/23 09:54 DL Desktop 08/16/23 09:59 DL Document 08/23/23 09:40 DL Desktop 08/23/23 09:47 DL Document 08/30/23 08:36 BMF Desktop 08/30/23 08:47 [facility] 08/09/23 08/16/23 08/23/23 10:39 09:54 09:40 [facility] Today's Visit Information Type of service Follow-up Visit Follow-up Visit Follow-up Visit (Physician/TOOL CRIB CLERK (Physician/TOOL CRIB CLERK (Physician/TOOL CRIB CLERK ) ) ) Arrival Mode Ambulatory,Cane Ambulatory,Cane Ambulatory,Cane Transfer Assistance None None None Patient Identification Verified (Name & Yes Yes Yes ) Patient Requires Transmission-Based No No No Precautions Vital Signs Temperature (97.8 F-99.1 F) 97.7 F L 97.4 F L 96.7 F L Temperature Source Temporal Temporal Temporal Pulse Rate (60-100) 64 58 L 62 Pulse Location Monitor Monitor Monitor Respiratory Rate (12-18) 20 H 18 20 H Respiratory rate source Observation Observation Observation Oxygen Delivery Method Blood Pressure (90/60-120/80) 121/63 H 129/53 H 140/60 H Blood Pressure Mean (mm Hg) 82 78 86 Source Monitor Monitor Monitor Position Blood Pressure Location History Since Last Visit- (Skip if this is Patient's initial visit) Have you changed medications since your No No No last visit? Any new allergies or adverse reactions No No No Had a fall/change in ADL's that may No No No increase risk of falls Signs or symptoms of abuse and/or No No No neglect since last visit Have you been in the hospital since your No No No last visit? Has dressing in place as prescribed Yes Yes Yes Has compression in place as prescribed No Yes Yes Has offloadiing in place as prescribed N/A N/A N/A Experienced any changes in pain level or Yes No No management Left Footwear Right Footwear Pain Scale: 0-10 Numeric Is Patient Pain Free? Yes No Yes 08/30/23 08:36 - Today's Visit Information Type of service Follow-up Visit (Physician/TOOL CRIB CLERK ) Arrival Mode Ambulatory,Cane Transfer Assistance None Patient Identification Verified (Name & Yes ) Patient Requires Transmission-Based No Precautions Vital Signs Temperature (97.8 F-99.1 F) 96.8 F L Temperature Source Temporal Pulse Rate (60-100) 63 Pulse Location Monitor Respiratory Rate (12-18) 16 Respiratory rate source Observation Oxygen Delivery Method Room Air Blood Pressure (90/60-120/80) 135/66 H Blood Pressure Mean (mm Hg) 89 Source Monitor Position Sitting Blood Pressure Location Right Arm History Since Last Visit- (Skip if this is Patient's initial visit) Have you changed medications since your No last visit? Any new allergies or adverse reactions No Had a fall/change in ADL's that may No increase risk of falls Signs or symptoms of abuse and/or No neglect since last visit Have you been in the hospital since your No last visit? Has dressing in place as prescribed Yes Has compression in place as prescribed Yes Has offloadiing in place as prescribed N/A Experienced any changes in pain level or No management Left Footwear Regular Shoe Right Footwear Regular Shoe Pain Scale: 0-10 Numeric Is Patient Pain Free? Yes WC - Nurse 1 - General Ulcer Measurement Start: 08/09/23 10:37 Freq: Status: Active Protocol: Activity Type Activity Date Activity User E-sign Co-sign Detail Recorded Client Recorded Date Recorded By Document 08/09/23 10:39 DL Desktop 08/09/23 10:49 DL Document 08/16/23 09:54 DL Desktop 08/16/23 09:59 DL Document 08/23/23 09:40 DL Desktop 08/23/23 09:47 DL Document 08/30/23 08:36 BMF Desktop 08/30/23 08:47 BMF 08/09/23 08/16/23 08/23/23 10:39 09:54 09:40 Wound Center Nurse 1 #3 right lateral ankle -Combined with other wound -Current Size (cm) - Length 1.5 1.3 1.2 -Current Size (cm) - Width 0.7 1.7 1.3 -Current Size (cm) - Depth 0.2 0.4 0.3 -Total Square Cm 1.05 2.21 1.56 -Date of Last Picture (Recall this field) -Photo Taken No -Epithelialization Medium 34-66% -Tunneling No -Undermining/Tunneling No -Circular Undermining No -Exudate Amt Medium Medium Medium -Exudate Type Serous Serosanguineous Serosanguineous -Wound Margin Distinct, Distinct, Distinct, Outline Outline Outline Attached Attached Attached -Granulation Amt Medium (34-66%) Medium (34-66%) Medium (34-66%) -Granulation Quality Red Red Pulcifer -Slough/Fibrin -Necrosis Amt Medium (34-66%) Medium (34-66%) -Necrotic Tissue Type Adherent Slough Adherent Slough -Structure Exposed N/A N/A N/A -Texture (Elif-wound Skin Appearance) Assessed Scarring Scarring -Moisture (Elif-wound Skin Appearance) Assessed No Abnormality No Abnormality -Color (Elif-wound Skin Appearance) Assessed Erythema, Hemosiderin Hemosiderin Staining Staining -Temperature (Elif-wound Skin No Abnormality No Abnormality No Abnormality Appearance) (Pt Warm) (Pt Warm) (Pt Warm) -Tenderness on Palpation (Elif-wound Yes Skin Appearance) -Ulcer Cleansing Soap and Water Soap and Water Soap and Water -Foul Odor after Cleansing Yes No No -Anesthetic Used 5% Lidocaine 5% Lidocaine 5% Lidocaine Gel Gel Gel -Wound Comment(s) C/O being tender more lately. #1- R LAT LE (P/O BASAL CELL CA) -Combined with other wound -Current Size (cm) - Length 1.5 1.5 1.2 -Current Size (cm) - Width 1.4 1.6 1.3 -Current Size (cm) - Depth 1.2 0.1 0.1 -Total Square Cm 2.10 2.40 1.56 -Date of Last Picture (Recall this field) -Photo Taken No -Epithelialization Medium 34-66% -Tunneling No -Undermining/Tunneling No -Circular Undermining No -Exudate Amt Medium Medium Medium -Exudate Type Serous Serosanguineous Serosanguineous -Wound Margin Distinct, Distinct, Distinct, Outline Outline Outline Attached Attached Attached -Granulation Amt Medium (34-66%) Medium (34-66%) Medium (34-66%) -Granulation Quality Red Red Red -Slough/Fibrin No -Necrosis Amt Medium (34-66%) Medium (34-66%) -Necrotic Tissue Type Adherent Slough Adherent Slough Adherent Slough -Structure Exposed N/A N/A N/A -Texture (Elif-wound Skin Appearance) Assessed Scarring Scarring -Moisture (Elif-wound Skin Appearance) Assessed No Abnormality No Abnormality -Color (Elif-wound Skin Appearance) Assessed Erythema, No Abnormality, Hemosiderin Hemosiderin Staining Staining -Temperature (Elif-wound Skin No Abnormality No Abnormality Appearance) (Pt Warm) (Pt Warm) -Tenderness on Palpation (Elif-wound No No No Skin Appearance) -Ulcer Cleansing Soap and Water Soap and Water Soap and Water -Foul Odor after Cleansing No No No -Anesthetic Used 5% Lidocaine 5% Lidocaine 5% Lidocaine Gel Gel Gel Lower Limb Edema Present Right Calf (cm) 32.8 32.5 33.3 Right Ankle (cm) 23.5 23.5 Point of Measurement (cm from the medial 23 instep) 08/30/23 08:36 Wound Center Nurse 1 #3 right lateral ankle -Combined with other wound No -Current Size (cm) - Length 1.2 -Current Size (cm) - Width 1.6 -Current Size (cm) - Depth 0.3 -Total Square Cm 1.92 -Date of Last Picture (Recall this 08/30/23 field) -Photo Taken Yes -Epithelialization None Present -Tunneling No -Undermining/Tunneling No -Circular Undermining No -Exudate Amt Medium -Exudate Type Serosanguineous -Wound Margin Distinct, Outline Attached -Granulation Amt Small (1-33%) -Granulation Quality Red -Slough/Fibrin Yes -Necrosis Amt Large (67-100%) -Necrotic Tissue Type Adherent Slough -Structure Exposed -Texture (Elif-wound Skin Appearance) Assessed, Scarring -Moisture (Elif-wound Skin Appearance) Assessed,Dry/ Scaly -Color (Elif-wound Skin Appearance) Assessed -Temperature (Leif-wound Skin No Abnormality Appearance) (Pt Warm) -Tenderness on Palpation (Elif-wound No Skin Appearance) -Ulcer Cleansing Soap and Water -Foul Odor after Cleansing No -Anesthetic Used 5% Lidocaine Gel -Wound Comment(s) #1- R LAT LE (P/O BASAL CELL CA) -Combined with other wound No -Current Size (cm) - Length 0.7 -Current Size (cm) - Width 1.1 -Current Size (cm) - Depth 0.1 -Total Square Cm 0.77 -Date of Last Picture (Recall this 08/30/23 field) -Photo Taken Yes -Epithelialization Small 1-33% -Tunneling No -Undermining/Tunneling No -Circular Undermining No -Exudate Amt Medium -Exudate Type Serosanguineous -Wound Margin Distinct, Outline Attached -Granulation Amt Medium (34-66%) -Granulation Quality Red -Slough/Fibrin Yes -Necrosis Amt Medium (34-66%) -Necrotic Tissue Type Adherent Slough -Structure Exposed -Texture (Elif-wound Skin Appearance) Assessed, Scarring -Moisture (Elif-wound Skin Appearance) Assessed,Dry/ Scaly -Color (Elif-wound Skin Appearance) Assessed -Temperature (Elif-wound Skin No Abnormality Appearance) (Pt Warm) -Tenderness on Palpation (Elif-wound No Skin Appearance) -Ulcer Cleansing Soap and Water -Foul Odor after Cleansing No -Anesthetic Used 5% Lidocaine Gel Lower Limb Edema Present Yes Right Calf (cm) 33 Right Ankle (cm) 24.2 Point of Measurement (cm from the medial instep) WC - Nurse 2 - General Ulcer CM Notes Start: 08/09/23 10:37 Freq: Status: Active Protocol: Activity Type Activity Date Activity User E-sign Co-sign Detail Recorded Client Recorded Date Recorded By Document 08/09/23 11:08 JF Laptop 08/09/23 11:15 JF Document 08/16/23 10:06 MW Desktop 08/16/23 10:14 MW Document 08/23/23 09:57 MW Desktop 08/23/23 10:10 MW Edit Result 08/23/23 09:57 MW (1) [id number] 08/24/23 07:25 PL Document 08/30/23 09:11 MW Desktop 08/30/23 09:21 MW (1) #3 right lateral ankle - I&D / Paring / Biopsy => Punch bx skin ( => includes simple => close, if done), => single lesion 08/09/23 08/16/23 08/23/23 11:08 10:06 09:57 Wound Center Nurse 2 #3 right lateral ankle -Time 11:12 10:06 09:57 -Correct Patient Yes Yes Yes -Correct Side, Site, Position Yes Yes Yes -Correct Procedure Yes Yes Yes -Procedure Performed Yes Yes Yes -Type of Procedure Debridement Debridement Debridement -Clinical Debridement Subcutaneous Subcutaneous Subcutaneous -Tissue Removed Subcutaneous Subcutaneous Subcutaneous -Post Debridement (cm) - Length 1.7 1.2 1.3 -Post Debridement (cm) - Width 1.0 1.2 1.3 -Post Debridement (cm) - Depth 0.1 0.3 0.3 -Total Square (Post) (cm) 1.70 1.44 1.69 -Area of Debridement (cm) - Length 1.7 1.2 1.3 -Area of Debridement (cm) - Width 1.0 1.2 1.3 -Total Square (Area) (cm) 1.70 1.44 1.69 -Tunneling No No No -Undermining/Tunneling No No No -Circular Undermining No No No -Wound/Ulcer Outcome Not Healed Not Healed Not Healed -Ulcer Cleansing Rinsed/ Rinsed/ Rinsed/ Irrigated with Irrigated with Irrigated with Saline Saline Saline -Foul Odor after Cleansing No No No -Bioengineered Tissue No No No -Type of Bioengineered Tissue -Expiration Date -Product Lot Number -Percent Used -Lot number of Saline Used -Bleeding Controlled with Pressure Pressure Pressure -Treatment Response Procedure Procedure Procedure Tolerated Well Tolerated Well Tolerated Well -Offloading No No No -Debridement - Subq, 1st 20sq cm No Yes Yes -Apply Skin Sub - 1st 25 sq cm - Legs -Epifix (per sq cm) -I&D / Paring / Biopsy Punch bx skin ( includes simple close, if done ), single lesion #1- R LAT LE (P/O BASAL CELL CA) -Time 11:13 10:06 09:57 -Correct Patient Yes Yes Yes -Correct Side, Site, Position Yes Yes Yes -Correct Procedure Yes Yes Yes -Procedure Performed Yes Yes Yes -Type of Procedure Debridement Debridement Debridement -Clinical Debridement Subcutaneous Subcutaneous Subcutaneous -Tissue Removed Subcutaneous Subcutaneous Subcutaneous -Post Debridement (cm) - Length 1.5 1.3 1.8 -Post Debridement (cm) - Width 1.8 2.0 1.0 -Post Debridement (cm) - Depth 0.1 0.1 0.1 -Total Square (Post) (cm) 2.70 2.60 1.80 -Area of Debridement (cm) - Length 1.5 1.3 1.8 -Area of Debridement (cm) - Width 1.8 2.0 1.0 -Total Square (Area) (cm) 2.70 2.60 1.80 -Tunneling No No No -Undermining/Tunneling No No No -Circular Undermining No No No -Wound/Ulcer Outcome Not Healed Not Healed Not Healed -Ulcer Cleansing Rinsed/ Rinsed/ Rinsed/ Irrigated with Irrigated with Irrigated with Saline Saline Saline -Foul Odor after Cleansing No No No -Bioengineered Tissue No No No -Bleeding Controlled with Pressure Pressure Pressure -Treatment Response Procedure Procedure Procedure Tolerated Well Tolerated Well Tolerated Well -Offloading No No No -Debridement - Subq, 1st 20sq cm Yes No No Pain Scale: 0-10 Numeric Is Patient Pain Free? Yes Yes Yes 08/30/23 09:11 Wound Center Nurse 2 #3 right lateral ankle -Time 09:11 -Correct Patient Yes -Correct Side, Site, Position Yes -Correct Procedure Yes -Procedure Performed Yes -Type of Procedure Debridement -Clinical Debridement Subcutaneous -Tissue Removed Subcutaneous -Post Debridement (cm) - Length 1.4 -Post Debridement (cm) - Width 1.6 -Post Debridement (cm) - Depth 0.3 -Total Square (Post) (cm) 2.24 -Area of Debridement (cm) - Length 1.4 -Area of Debridement (cm) - Width 1.6 -Total Square (Area) (cm) 2.24 -Tunneling No -Undermining/Tunneling No -Circular Undermining No -Wound/Ulcer Outcome Not Healed -Ulcer Cleansing Rinsed/ Irrigated with Saline -Foul Odor after Cleansing No -Bioengineered Tissue Yes -Type of Bioengineered Tissue Epifix -Expiration Date 05/05/28 -Product Lot Number [id number] -Percent Used 100 -Lot number of Saline Used [id number] -Bleeding Controlled with Pressure -Treatment Response Procedure Tolerated Well -Offloading No -Debridement - Subq, 1st 20sq cm No -Apply Skin Sub - 1st 25 sq cm - Legs 1 -Epifix (per sq cm) 4 -I&D / Paring / Biopsy #1- R LAT LE (P/O BASAL CELL CA) -Time 09:17 -Correct Patient Yes -Correct Side, Site, Position Yes -Correct Procedure Yes -Procedure Performed Yes -Type of Procedure Debridement -Clinical Debridement Subcutaneous -Tissue Removed Subcutaneous -Post Debridement (cm) - Length 0.4 -Post Debridement (cm) - Width 0.8 -Post Debridement (cm) - Depth 0.1 -Total Square (Post) (cm) 0.32 -Area of Debridement (cm) - Length 0.4 -Area of Debridement (cm) - Width 0.8 -Total Square (Area) (cm) 0.32 -Tunneling No -Undermining/Tunneling No -Circular Undermining No -Wound/Ulcer Outcome Not Healed -Ulcer Cleansing Rinsed/ Irrigated with Saline -Foul Odor after Cleansing No -Bioengineered Tissue No -Bleeding Controlled with Pressure -Treatment Response Procedure Tolerated Well -Offloading No -Debridement - Subq, 1st 20sq cm Yes Pain Scale: 0-10 Numeric Is Patient Pain Free? Yes WC - Nurse 3 - General Ulcer D/C NN Start: 08/09/23 10:37 Freq: Status: Active Protocol: Activity Type Activity Date Activity User E-sign Co-sign Detail Recorded Client Recorded Date Recorded By Document 08/09/23 11:24 KW Desktop 08/09/23 11:26 KW Document 08/16/23 10:32 DL Desktop 08/16/23 10:34 DL Document 08/23/23 10:30 MW Desktop 08/23/23 10:34 MW Document 08/30/23 09:30 MW Desktop 08/30/23 09:31 MW 08/09/23 08/16/23 08/23/23 11:24 10:32 10:30 Wound Care Center Nurse 3 #3 right lateral ankle -Ulcer Cleansing Rinsed/ Not Cleansed Irrigated with Saline -Foul Odor after Cleansing No No -Negative Pressure Wound Therapy N/A -Primary Dressing Applied C Hydrogel ($), Fibracol Plus Mepilex Border Mepilex Border, 4x4,Mepilex NonAdherent Border Contact Layer -Aquacel Extra -Fibracol Plus 4x4 1 -Mepilex Border 1 1 1 #1- R LAT LE (P/O BASAL CELL CA) -Ulcer Cleansing Rinsed/ Rinsed/ Irrigated with Irrigated with Saline Saline -Foul Odor after Cleansing No No -Negative Pressure Wound Therapy N/A -Primary Dressing Applied Mepilex Border Mepilex Border Fibracol Plus 4x4,Mepilex Border -Other Dressing fibricol -Primary Dressing Covered/Secured with -Fibracol Plus 4x4 1 -Mepilex Border 1 1 1 Right -Lotion applied to leg before No compression wrap -Stockings Yes albert -Stockings Yes Treatment Response Procedure Procedure Tolerated Well Tolerated Well Pain Scale: 0-10 Numeric Is Patient Pain Free? Yes Yes Yes Teaching: Wound Center Dressing Your Wound -Person Taught Patient -Teaching Method Discussion -Response to teaching Verbalize understanding WC - Visit Discharge Discharge Condition Stable Stable Stable Ambulatory Status Ambulatory Ambulatory,Cane Ambulatory,Cane Transportation Private Auto Private Auto Private Auto Accompanied by self Medication Reconcilliation completed & No No provided to patient/care provider Clinical Summary of Care Provided Yes Yes 08/30/23 09:30 Wound Care Center Nurse 3 #3 right lateral ankle -Ulcer Cleansing Not Cleansed -Foul Odor after Cleansing No -Negative Pressure Wound Therapy N/A -Primary Dressing Applied Aquacel Extra, Mepilex Border -Aquacel Extra 1 -Fibracol Plus 4x4 -Mepilex Border 1 #1- R LAT LE (P/O BASAL CELL CA) -Ulcer Cleansing Not Cleansed -Foul Odor after Cleansing No -Negative Pressure Wound Therapy N/A -Primary Dressing Applied Mepilex Border -Other Dressing -Primary Dressing Covered/Secured with Dry Gauze -Fibracol Plus 4x4 -Mepilex Border 1 Right -Lotion applied to leg before compression wrap -Stockings Yes albert -Stockings Treatment Response Procedure Tolerated Well Pain Scale: 0-10 Numeric Is Patient Pain Free? Yes Teaching: Wound Center Dressing Your Wound -Person Taught -Teaching Method -Response to teaching WC - Visit Discharge Discharge Condition Stable Ambulatory Status Ambulatory,Cane Transportation Private Auto Accompanied by self Medication Reconcilliation completed & No provided to patient/care provider Clinical Summary of Care Provided Yes Additional Wound Wound debrided: Right ankle venous ulcer Type of Debridement: Excisional debridement Anesthesia Used: 5% Lidocaine Gel Depth: in the subcutaneous layer Percentage of wound debrided: 100 Instrument Used: 3mm curette Tissue Removed: Slough and fibrin Severity: Fat Layer Exposed Amount of bleeding with debridement: Mild Bleeding Controlled with: Compression and gauze Patient tolerated procedure: Patient tolerated procedure well Assessment/Plan Assessment/Plan (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: CODE(S): C44.721 - Squamous cell carcinoma of skin of unspecified lower limb, including hip QUALIFIERS: Laterality: right Qualified Code(s): C44.722 - Squamous cell carcinoma of skin of right lower limb, including hip PLAN: Wash wound with antibacterial soap and water and apply fibrocol to wound base cover with Adaptic and an absorbent dressing (2) Venous ulcer of ankle: CODE(S): I83.003 - Varicose veins of unspecified lower extremity with ulcer of ankle; L97.309 - Non-pressure chronic ulcer of unspecified ankle with unspecified severity QUALIFIERS: Varicose vein presence: with varicose veins Laterality: right Non-pressure ulcer stage: limited to breakdown of skin Qualified Code(s): I83.013 - Varicose veins of right lower extremity with ulcer of ankle; L97.311 - Non-pressure chronic ulcer of right ankle limited to breakdown of skin PLAN: Refer to Dr. Galaviz for her right lower leg edema and abnormal venous ultrasounds. Obvious occlusions to her GSV's and she has discoloration to the leg with swelling and pain. (3) Non-pressure ulcer of right lower extremity: CODE(S): L97.919 - Non-pressure chronic ulcer of unspecified part of right lower leg with unspecified severity QUALIFIERS: Non-pressure ulcer stage: with fat layer exposed Qualified Code(s): L97.912 - Non-pressure chronic ulcer of unspecified part of right lower leg with fat layer exposed PLAN: EpiFix #1 applied wound veil over top and Steri-Strips then Aquacel extra and a dry dressing Follow-up in 1 week with another provider for epi #2 Patient is to finish antibiotic therapy for the infection. (4) Nonhealing nonsurgical wound: CODE(S): T14.8XXA - Other injury of unspecified body region, initial encounter
== END 2023-09-03 23:59 | disposition home or self-care (01) ==
LOC: WC 08:15
PROVIDERS: PCP Internal Medicine; Referring Provider Nurse Practitioner; Visit Provider Nurse Practitioner
DX: I83.013 Varicose veins of right lower extremity with ulcer of ankle (principal); L97.312 Non-pressure chronic ulcer of right ankle with fat layer exposed; L97.811 Non-pressure chronic ulcer of other part of right lower leg limited to breakdown of skin; C50.919 Malignant neoplasm of unspecified site of unspecified female breast; C44.722 Squamous cell carcinoma of skin of right lower limb, including hip; R60.0 Localized edema
CPT/HCPCS: 11042; 11104; 15271; 87070; 87075; 87077; 87186; 87205; 88305; 88312; Q4186

== ENCOUNTER 2023-10-04 09:45 | Outpatient (RCR) | payer MEDICARE, OTHER, SELFPAY ==
[2023-09-04 00:23] VITALS: BP 135/66; PULSE 63; RESP 16; TEMP 36
[2023-09-06 09:49] VITALS: BP 123/69; PULSE 70; RESP 20; TEMP 36.3
--- NOTE | 2023-09-06 10:57 | PN.PCM_ITS ---
History of Present Illness Date of Service: 09/06/23 Chief Complaint: Follow-up on her right lower leg lateral area wound nonhealing since at least November. History of Wound: 72-year-old white female in [place] where she is living during the winter. She had a growth removed from her right lateral lower leg. She is still not sure if it is cancer or not. After finally getting through to the dermatology she found that they never sent a biopsy off. She saw her own doctor up here and she was referred to us from her and put on cephalexin. Recently she was taken off her Lasix and has terrible edema of her lower extremities and abdomen. Patient states she has gained 9 pounds Patient had been referred to dermatology and has returned after they did Mohs surgery on her right lateral lower leg. They state they got all the cancer out. We will reapply for EpiFix to restart her. We will also also refer to Dr. Galaviz for vascular problems she is having in her right lower leg. Her biggest complaint is that she is swelling a lot in her lower extremities. Worried about a blood clot Now she has breast cancer and is being seen by oncology at [facility] for that. She has left total mastectomy on 06/12/2023. She states she is healing well from that. Subjective Subjective Mrs Negron is a 72-year-old female presenting for follow-up of full-thickness ulceration appreciated to the Right lower extremity. Patient is seen by the sanjuana walker practitioner at the wound care center but is out today on vacation. She is following up with Dr. Johnson for her care. She admits to having a biopsy to the distal ulceration which came back noncancerous. She has been doing home dressing changes at home without problems. She denies trauma. Denies constitutional symptoms. No other pedal complaints at this time. Objective Data Objective Data Vital Signs: Vital Signs Temp Pulse Resp BP 97.3 F L 70 20 H 123/69 H 09/06/23 09:49 09/06/23 09:49 09/06/23 09:49 09/06/23 09:49 Physical Exam Narrative Neurovascular status is unchanged. Evidence of 2 full-thickness ulceration to the right lower extremity lateral aspect. Proximal ulceration measures 1.5 x 1.5 x 0.1 cm. Distal ulceration at the level ankle measures 1.5 x 1.5 x 0.2 cm. Both wounds are granular nature. No sign of infection. Excisional debridement down to and including soft tissue mass with a number 5 mm dermal curette to the proximal right ulceration. Predebridement measurement was 1.4 x 1.4 x 0.1 cm. Postdebridement measurements 1.5 x 1.5 x 0.1 cm. Excisional debridement down to and including subcutaneous tissue with a number 5 mm dermal curette to the right distal/ankle ulceration without incident. Predebridement measurement is 1.4 x 1.2 x 0.1 cm. Postdebridement measurement is 1.5 x 1.5 x 0.2 cm. EpiFix 2 x 2 centimeter was applied to the right distal full-thickness ulceration with 100% use. Second application. The graft site was free and clear of any infection. The wound/skin graft substitute was dressed with nonadherent bandage secured in place with Steri-Strips followed by bolster dressing as well as a double layer Tubigrip. Debridement Note Debridement Note Debridement Free Text: Excisional debridement down to and including soft tissue mass with a number 5 mm dermal curette to the proximal right ulceration. Predebridement measurement was 1.4 x 1.4 x 0.1 cm. Postdebridement measurements 1.5 x 1.5 x 0.1 cm. Excisional debridement down to and including subcutaneous tissue with a number 5 mm dermal curette to the right distal/ankle ulceration without incident. Predebridement measurement is 1.4 x 1.2 x 0.1 cm. Postdebridement measurement is 1.5 x 1.5 x 0.2 cm. EpiFix 2 x 2 centimeter was applied to the right distal full-thickness u lceration with 100% use. Second application. The graft site was free and clear of any infection. The wound/skin graft substitute was dressed with nonadherent bandage secured in place with Steri-Strips followed by bolster dressing as well as a double layer Tubigrip. Post-Debridement Measurements and Additional Note: Post-Debridement Measurements/Treatment HERMILA - Nurse 1 - General Ulcer Assessment Start: 09/06/23 09:48 Freq: Status: Active Protocol: SAHIL Activity Type Activity Date Activity User E-sign Co-sign Detail Recorded Client Recorded Date Recorded By Document 01/03/24 09:49 DL Desktop 09/06/23 09:59 DL 09/06/23 09:49 - Today's Visit Information Type of service Follow-up Visit (Physician/DEBONE SUPERVISOR ) Arrival Mode Ambulatory Transfer Assistance None Patient Identification Verified (Name & Yes ) Vital Signs Temperature (97.8 F-99.1 F) 97.3 F L Temperature Source Temporal Pulse Rate (60-100) 70 Pulse Location Monitor Respiratory Rate (12-18) 20 H Respiratory rate source Observation Blood Pressure (90/60-120/80) 123/69 H Blood Pressure Mean (mm Hg) 87 Source Monitor Position Sitting History Since Last Visit- (Skip if this is Patient's initial visit) Have you changed medications since your No last visit? Any new allergies or adverse reactions No Had a fall/change in ADL's that may No increase risk of falls Signs or symptoms of abuse and/or No neglect since last visit Have you been in the hospital since your No last visit? Has dressing in place as prescribed Yes Has compression in place as prescribed Yes Has offloadiing in place as prescribed N/A Experienced any changes in pain level or No management Left Footwear Regular Shoe Right Footwear Regular Shoe Pain Scale: 0-10 Numeric Is Patient Pain Free? Yes - Nurse 1 - General Ulcer Measurement Start: 09/06/23 09:48 Freq: Status: Active Protocol: Activity Type Activity Date Activity User E-sign Co-sign Detail Recorded Client Recorded Date Recorded By Document 09/06/23 09:49 DL Desktop 09/06/23 09:59 DL 09/06/23 09:49 Wound Center Nurse 1 #3 right lateral ankle -Current Size (cm) - Length 1.6 -Current Size (cm) - Width 1.2 -Current Size (cm) - Depth 0.4 -Total Square Cm 1.92 -Date of Last Picture (Recall this 09/06/23 field) -Photo Taken Yes -Exudate Amt Medium -Exudate Type Serosanguineous -Wound Margin Distinct, Outline Attached -Granulation Amt None Present (0 %) -Necrosis Amt Large (67-100%) -Necrotic Tissue Type Adherent Slough -Structure Exposed N/A -Texture (Elif-wound Skin Appearance) Assessed -Moisture (Elif-wound Skin Appearance) Assessed -Color (Elif-wound Skin Appearance) Assessed -Temperature (Elif-wound Skin No Abnormality Appearance) (Pt Warm) -Tenderness on Palpation (Elif-wound Yes Skin Appearance) -Ulcer Cleansing Soap and Water -Foul Odor after Cleansing No -Anesthetic Used 5% Lidocaine Gel #1- R LAT LE (P/O BASAL CELL CA) -Combined with other wound No -Current Size (cm) - Length 1.3 -Current Size (cm) - Width 1.3 -Current Size (cm) - Depth 0.1 -Total Square Cm 1.69 -Date of Last Picture (Recall this 09/06/23 field) -Exudate Amt Medium -Exudate Type Serosanguineous -Wound Margin Distinct, Outline Attached -Granulation Amt Large (67-100%) -Granulation Quality Merrill,Red -Necrosis Amt None Present (0 %) -Structure Exposed N/A -Texture (Elif-wound Skin Appearance) Scarring -Moisture (Elif-wound Skin Appearance) No Abnormality -Color (Elif-wound Skin Appearance) Hemosiderin Staining -Temperature (Elif-wound Skin No Abnormality Appearance) (Pt Warm) -Tenderness on Palpation (Elif-wound Yes Skin Appearance) -Ulcer Cleansing Soap and Water -Foul Odor after Cleansing No -Anesthetic Used 5% Lidocaine Gel Right Calf (cm) 33 Right Ankle (cm) 23.5 WC - Nurse 2 - General Ulcer CM Notes Start: 09/06/23 09:48 Freq: Status: Active Protocol: Activity Type Activity Date Activity User E-sign Co-sign Detail Recorded Client Recorded Date Recorded By Document 09/06/23 10:04 Laptop 09/06/23 10:11 09/06/23 10:04 Wound Center Nurse 2 #3 right lateral ankle -Time 10:04 -Correct Patient Yes -Correct Side, Site, Position Yes -Correct Procedure Yes -Procedure Performed Yes -Type of Procedure Debridement -Clinical Debridement Subcutaneous -Tissue Removed Subcutaneous -Post Debridement (cm) - Length 1.5 -Post Debridement (cm) - Width 1.5 -Post Debridement (cm) - Depth 0.2 -Total Square (Post) (cm) 2.25 -Area of Debridement (cm) - Length 1.5 -Area of Debridement (cm) - Width 1.5 -Total Square (Area) (cm) 2.25 -Tunneling No -Undermining/Tunneling No -Circular Undermining No -Wound/Ulcer Outcome Not Healed -Ulcer Cleansing Rinsed/ Irrigated with Saline -Foul Odor after Cleansing No -Bioengineered Tissue Yes -Type of Bioengineered Tissue Epifix -Expiration Date 05/05/28 -Product Lot Number [id number] -Percent Used 100 -Lot number of Saline Used [id number] -Bleeding Controlled with Pressure -Treatment Response Procedure Tolerated Well -Offloading No -Debridement - Subq, 1st 20sq cm No -Apply Skin Sub - 1st 25 sq cm - Legs 1 -Epifix (per sq cm) 4 #1- R LAT LE (P/O BASAL CELL CA) -Time 10:05 -Correct Patient Yes -Correct Side, Site, Position Yes -Correct Procedure Yes -Procedure Performed Yes -Type of Procedure Debridement -Clinical Debridement Subcutaneous -Tissue Removed Subcutaneous -Post Debridement (cm) - Length 1.5 -Post Debridement (cm) - Width 1.5 -Post Debridement (cm) - Depth 0.1 -Total Square (Post) (cm) 2.25 -Area of Debridement (cm) - Length 1.5 -Area of Debridement (cm) - Width 1.5 -Total Square (Area) (cm) 2.25 -Tunneling No -Undermining/Tunneling No -Circular Undermining No -Wound/Ulcer Outcome Not Healed -Ulcer Cleansing Rinsed/ Irrigated with Saline -Foul Odor after Cleansing No -Bioengineered Tissue No -Bleeding Controlled with Pressure -Treatment Response Procedure Tolerated Well -Offloading No -Debridement - Subq, 1st 20sq cm Yes Pain Scale: 0-10 Numeric Is Patient Pain Free? Yes WC - Nurse 3 - General Ulcer D/C NN Start: 09/06/23 09:48 Freq: Status: Active Protocol: Activity Type Activity Date Activity User E-sign Co-sign Detail Recorded Client Recorded Date Recorded By Document 09/06/23 10:21 DL Desktop 09/06/23 10:23 DL 09/06/23 10:21 Wound Care Center Nurse 3 #3 right lateral ankle -Foul Odor after Cleansing No -Primary Dressing Applied Mepilex Border -Other Dressing Epifix -Mepilex Border 1 #1- R LAT LE (P/O BASAL CELL CA) -Foul Odor after Cleansing No -Primary Dressing Applied Mepilex Border -Other Dressing epifix -Mepilex Border 1 albert -Stockings Yes Treatment Response Procedure Tolerated Well Pain Scale: 0-10 Numeric Is Patient Pain Free? Yes WC - Visit Discharge Discharge Condition Stable Ambulatory Status Ambulatory,Cane Transportation Private Auto Assessment/Plan Assessment/Plan (1) Non-pressure ulcer of right lower extremity with fat layer exposed: CODE(S): L97.912 - Non-pressure chronic ulcer of unspecified part of right lower leg with fat layer exposed PLAN: Patient was examined and evaluated. All findings were discussed with the patient. All questions were answered to the patient's satisfaction. Excisional debridement down to and including soft tissue mass with a number 5 mm dermal curette to the proximal right ulceration. Predebridement measurement was 1.4 x 1.4 x 0.1 cm. Postdebridement measurements 1.5 x 1.5 x 0.1 cm. Excisional debridement down to and including subcutaneous tissue with a number 5 mm dermal curette to the right distal/ankle ulceration without incident. Predebridement measurement is 1.4 x 1.2 x 0.1 cm. Postdebridement measurement is 1.5 x 1.5 x 0.2 cm. EpiFix 2 x 2 centimeter was applied to the right distal full-thickness ulceration with 100% use. Second application. The graft site was free and clear of any infection. The wound/skin graft substitute was dressed with nonadherent bandage secured in place with Steri-Strips followed by bolster dressing as well as a double layer Tubigrip. Follow-up with nurse practitioner Mariela 1 week. 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
[2023-09-13 09:49] VITALS: BP 120/54; PULSE 65; RESP 20; TEMP 35.7
--- NOTE | 2023-09-13 12:06 | PN.PCM_ITS ---
History of Present Illness Date of Service: 09/13/23 Chief Complaint: Follow-up on her right lower leg lateral area wound nonhealing since at least November. History of Wound: 72-year-old white female in [place] where she is living during the winter. She had a growth removed from her right lateral lower leg. She is still not sure if it is cancer or not. After finally getting through to the dermatology she found that they never sent a biopsy off. She saw her own doctor up here and she was referred to us from her and put on cephalexin. Recently she was taken off her Lasix and has terrible edema of her lower extremities and abdomen. Patient states she has gained 9 pounds Patient had been referred to dermatology and has returned after they did Mohs surgery on her right lateral lower leg. They state they got all the cancer out. We will reapply for EpiFix to restart her. We will also also refer to Dr. Galaviz for vascular problems she is having in her right lower leg. Her biggest complaint is that she is swelling a lot in her lower extremities. Worried about a blood clot Now she has breast cancer and is being seen by oncology at [facility] for that. She has left total mastectomy on 06/12/2023. She states she is healing well from that. Progress of Wound: The francis wound is almost healed it is just got a couple of dots by next week it should be done. The right lateral ankle venous ulcer is still open more shallow still gets a lot of slough in the base but she does have some islands of new skin developing. She still complains of pain especially burning at night which I think is from peripheral arterial disease. Patient has never had an arterial study done. Therefore we are going to repeat for her again to Dr. 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 Still gets a lot of slough buildup but she is got islands of new tissue showing in the center base of the wound. The wound looks more shallow but not smaller. The right francis area is definitely almost healed probably by next week it should be healed. Will continue using the EpiFix she goes to EpiFix #2 today We are also concerned that there might be some malnutrition so we started her on Simone and gave her some samples Vital Signs: Vital Signs Temp Pulse Resp BP 96.2 F L 65 20 H 120/54 L 09/13/23 09:49 09/13/23 09:49 09/13/23 09:49 09/13/23 09:49 Lab / Micro Data Attestation: I reviewed the patient's lab results. Physical Exam Const oriented x3 General Appearance: cooperative Exam Limitations: no limitations HEENT normocephalic Head and Scalp: normal to inspection Face and Sinus: normal facial exam Nose: external nose normal General Ear: hearing grossly impaired External Ear: external ears normal Mouth: oral and palatal mucosa normal Eyes PERRL General Eye: normal appearance of both eyes Neck full ROM General: normal visual inspection Resp normal respiratory effort Effort and Inspection: able to speak in complete sentences Auscultation: clear to auscultation bilaterally Cardio regular rate and regular rhythm Palpation: normal PMI Rate: regular rate Rhythm: regular rhythm GI Auscultation: normoactive bowel sounds Palpation: soft and no hepatosplenomegaly external exam normal Back/Spine Cervical Spine: cervical ROM normal Thoracic Spine / Upper Back: normal to inspection Lumbar Spine / Lower Back: normal to inspection Extremity normal to inspection General Extremity: normal exam except as noted Skin no rashes or lesions noted Neuro oriented x3 Psych Appearance: grossly normal Speech: normal speech Thought Content: normal thought content Judgement: judgement good Debridement Note Debridement Note Wound debrided: Right francis Laterality: Right Type of Debridement: Excisional debridement Anesthesia Used: 5% Lidocaine Gel Depth: Down to and including healthy tissue Percentage of wound debrided: 100 Instrument Used: 3mm curette Tissue Removed: Fibrin Severity: Limited To Skin Breakdown Amount of bleeding with debridement: None Bleeding Controlled with: Pressure Patient tolerated procedure: Patient tolerated procedure well Post-Debridement Measurements and Additional Note: Post-Debridement Measurements/Treatment WC - Nurse 1 - General Ulcer Assessment Start: 09/06/23 09:48 Freq: Status: Active Protocol: SAHIL Activity Type Activity Date Activity User E-sign Co-sign Detail Recorded Client Recorded Date Recorded By Document 09/06/23 09:49 DL Desktop 09/06/23 09:59 DL Document 09/13/23 09:49 DL Desktop 09/13/23 09:58 DL 09/06/23 09/13/23 09:49 09:49 - Today's Visit Information Type of service Follow-up Visit Follow-up Visit (Physician/FIRE LOOKOUT (Physician/FIRE LOOKOUT ) ) Arrival Mode Ambulatory Ambulatory,Cane Transfer Assistance None None Patient Identification Verified (Name & Yes Yes ) Patient Requires Transmission-Based No Precautions Vital Signs Temperature (97.8 F-99.1 F) 97.3 F L 96.2 F L Temperature Source Temporal Temporal Pulse Rate (60-100) 70 65 Pulse Location Monitor Monitor Respiratory Rate (12-18) 20 H 20 H Respiratory rate source Observation Observation Blood Pressure (90/60-120/80) 123/69 H 120/54 L Blood Pressure Mean (mm Hg) 87 76 Source Monitor Monitor Position Sitting History Since Last Visit- (Skip if this is Patient's initial visit) Have you changed medications since your No No last visit? Any new allergies or adverse reactions No No Had a fall/change in ADL's that may No No increase risk of falls Signs or symptoms of abuse and/or No No neglect since last visit Have you been in the hospital since your No No last visit? Has dressing in place as prescribed Yes Yes Has compression in place as prescribed Yes Yes Has offloadiing in place as prescribed N/A N/A Experienced any changes in pain level or No No management Left Footwear Regular Shoe Right Footwear Regular Shoe Pain Scale: 0-10 Numeric Is Patient Pain Free? Yes Yes - Nurse 1 - General Ulcer Measurement Start: 09/06/23 09:48 Freq: Status: Active Protocol: Activity Type Activity Date Activity User E-sign Co-sign Detail Recorded Client Recorded Date Recorded By Document 09/06/23 09:49 DL Desktop 09/06/23 09:59 DL Document 09/13/23 09:49 DL Desktop 09/13/23 09:58 DL 09/06/23 09/13/23 09:49 09:49 Wound Center Nurse 1 #3 right lateral ankle -Current Size (cm) - Length 1.6 1.5 -Current Size (cm) - Width 1.2 2 -Current Size (cm) - Depth 0.4 0.2 -Total Square Cm 1.92 3.0 -Date of Last Picture (Recall this 09/06/23 field) -Photo Taken Yes No -Exudate Amt Medium Medium -Exudate Type Serosanguineous Serosanguineous -Wound Margin Distinct, Distinct, Outline Outline Attached Attached -Granulation Amt None Present (0 Small (1-33%) %) -Granulation Quality Red -Necrosis Amt Large (67-100%) Large (67-100%) -Necrotic Tissue Type Adherent Slough Adherent Slough -Structure Exposed N/A N/A -Texture (Elif-wound Skin Appearance) Assessed Scarring -Moisture (Elif-wound Skin Appearance) Assessed No Abnormality -Color (Elif-wound Skin Appearance) Assessed Hemosiderin Staining -Temperature (Elif-wound Skin No Abnormality No Abnormality Appearance) (Pt Warm) (Pt Warm) -Tenderness on Palpation (Elif-wound Yes Yes Skin Appearance) -Ulcer Cleansing Soap and Water Soap and Water -Foul Odor after Cleansing No No -Anesthetic Used 5% Lidocaine 5% Lidocaine Gel Gel #1- R LAT LE (P/O BASAL CELL CA) -Combined with other wound No -Current Size (cm) - Length 1.3 0.6 -Current Size (cm) - Width 1.3 1 -Current Size (cm) - Depth 0.1 0.1 -Total Square Cm 1.69 0.6 -Date of Last Picture (Recall this 09/06/23 field) -Exudate Amt Medium Small -Exudate Type Serosanguineous -Wound Margin Distinct, Distinct, Outline Outline Attached Attached -Granulation Amt Large (67-100%) Large (67-100%) -Granulation Quality [place] -Necrosis Amt None Present (0 Small (1-33%) %) -Necrotic Tissue Type Adherent Slough -Structure Exposed N/A N/A -Texture (Elif-wound Skin Appearance) Scarring Scarring -Moisture (Elif-wound Skin Appearance) No Abnormality No Abnormality -Color (Elif-wound Skin Appearance) Hemosiderin Hemosiderin Staining Staining -Temperature (Elif-wound Skin No Abnormality No Abnormality Appearance) (Pt Warm) (Pt Warm) -Tenderness on Palpation (Elif-wound Yes Skin Appearance) -Ulcer Cleansing Soap and Water Soap and Water -Foul Odor after Cleansing No No -Anesthetic Used 5% Lidocaine 5% Lidocaine Gel Gel Right Calf (cm) 33 31.5 Right Ankle (cm) 23.5 23.5 WC - Nurse 2 - General Ulcer CM Notes Start: 09/06/23 09:48 Freq: Status: Active Protocol: Activity Type Activity Date Activity User E-sign Co-sign Detail Recorded Client Recorded Date Recorded By Document 09/06/23 10:04 JF Laptop 09/06/23 10:11 JF Document 09/13/23 10:05 MW Desktop 09/13/23 10:15 MW 09/06/23 09/13/23 10:04 10:05 Wound Center Nurse 2 #3 right lateral ankle -Time 10:04 10:06 -Correct Patient Yes Yes -Correct Side, Site, Position Yes Yes -Correct Procedure Yes Yes -Procedure Performed Yes Yes -Type of Procedure Debridement Debridement -Clinical Debridement Subcutaneous Subcutaneous -Tissue Removed Subcutaneous Subcutaneous -Post Debridement (cm) - Length 1.5 1.9 -Post Debridement (cm) - Width 1.5 1.7 -Post Debridement (cm) - Depth 0.2 0.3 -Total Square (Post) (cm) 2.25 3.23 -Area of Debridement (cm) - Length 1.5 1.9 -Area of Debridement (cm) - Width 1.5 1.7 -Total Square (Area) (cm) 2.25 3.23 -Tunneling No No -Undermining/Tunneling No No -Circular Undermining No No -Wound/Ulcer Outcome Not Healed Not Healed -Ulcer Cleansing Rinsed/ Rinsed/ Irrigated with Irrigated with Saline Saline -Foul Odor after Cleansing No No -Bioengineered Tissue Yes Yes -Type of Bioengineered Tissue Epifix Epifix -Expiration Date 05/05/28 05/05/28 -Product Lot Number [id number] -Percent Used 100 100 -Lot number of Saline Used [id number] -Bleeding Controlled with Pressure Pressure -Treatment Response Procedure Procedure Tolerated Well Tolerated Well -Offloading No No -Debridement - Subq, 1st 20sq cm No No -Apply Skin Sub - 1st 25 sq cm - Legs 1 -Epifix (per sq cm) 4 4 #1- R LAT LE (P/O BASAL CELL CA) -Time 10:05 10:08 -Correct Patient Yes Yes -Correct Side, Site, Position Yes Yes -Correct Procedure Yes Yes -Procedure Performed Yes Yes -Type of Procedure Debridement Debridement -Clinical Debridement Subcutaneous Subcutaneous -Tissue Removed Subcutaneous Subcutaneous -Post Debridement (cm) - Length 1.5 0.2 -Post Debridement (cm) - Width 1.5 0.2 -Post Debridement (cm) - Depth 0.1 0.1 -Total Square (Post) (cm) 2.25 0.04 -Area of Debridement (cm) - Length 1.5 0.2 -Area of Debridement (cm) - Width 1.5 0.2 -Total Square (Area) (cm) 2.25 0.04 -Tunneling No No -Undermining/Tunneling No No -Circular Undermining No No -Wound/Ulcer Outcome Not Healed Not Healed -Ulcer Cleansing Rinsed/ Rinsed/ Irrigated with Irrigated with Saline Saline -Foul Odor after Cleansing No No -Bioengineered Tissue No No -Bleeding Controlled with Pressure Pressure -Treatment Response Procedure Procedure Tolerated Well Tolerated Well -Offloading No No -Debridement - Subq, 1st 20sq cm Yes Yes Pain Scale: 0-10 Numeric Is Patient Pain Free? Yes Yes WC - Nurse 3 - General Ulcer D/C NN Start: 09/06/23 09:48 Freq: Status: Active Protocol: Activity Type Activity Date Activity User E-sign Co-sign Detail Recorded Client Recorded Date Recorded By Document 09/06/23 10:21 DL Desktop 09/06/23 10:23 DL Document 09/13/23 10:21 MW Desktop 09/13/23 10:22 MW 09/06/23 09/13/23 10:21 10:21 Wound Care Center Nurse 3 #3 right lateral ankle -Ulcer Cleansing Not Cleansed -Foul Odor after Cleansing No No -Negative Pressure Wound Therapy N/A -Primary Dressing Applied Mepilex Border Mepilex Border -Other Dressing Epifix -Primary Dressing Covered/Secured with Dry Gauze -Mepilex Border 1 1 #1- R LAT LE (P/O BASAL CELL CA) -Ulcer Cleansing Not Cleansed -Foul Odor after Cleansing No No -Negative Pressure Wound Therapy N/A -Primary Dressing Applied Mepilex Border Mepilex Border -Other Dressing epifix -Primary Dressing Covered/Secured with Dry Gauze -Mepilex Border 1 1 albert -Stockings Yes Treatment Response Procedure Procedure Tolerated Well Tolerated Well Pain Scale: 0-10 Numeric Is Patient Pain Free? Yes Yes Teaching: Wound Center Dressing Your Wound -Person Taught Patient -Teaching Method Discussion, Demonstration -Response to teaching Verbalize understanding WC - Visit Discharge Discharge Condition Stable Stable Ambulatory Status Ambulatory,Cane Ambulatory,Cane Transportation Private Auto Private Auto Accompanied by self Medication Reconcilliation completed & No provided to patient/care provider Clinical Summary of Care Provided Yes Additional Wound Wound debrided: Right ankle venous ulcer Type of Debridement: Excisional debridement Anesthesia Used: 5% Lidocaine Gel Depth: in the subcutaneous layer Percentage of wound debrided: 100 Instrument Used: 5mm curette Tissue Removed: Slough and fibrin Severity: Fat Layer Exposed Amount of bleeding with debridement: Mild Bleeding Controlled with: Compression and gauze Patient tolerated procedure: Patient tolerated procedure well Assessment/Plan Assessment/Plan (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: CODE(S): C44.721 - Squamous cell carcinoma of skin of unspecified lower limb, including hip QUALIFIERS: Laterality: right Qualified Code(s): C44.722 - Squamous cell carcinoma of skin of right lower limb, including hip PLAN: Wash wound with antibacterial soap and water and apply fibrocol to wound base cover with Adaptic and an absorbent dressing (2) Venous ulcer of ankle: CODE(S): I83.003 - Varicose veins of unspecified lower extremity with ulcer of ankle; L97.309 - Non-pressure chronic ulcer of unspecified ankle with unspecified severity QUALIFIERS: Varicose vein presence: with varicose veins Later ality: right Non-pressure ulcer stage: limited to breakdown of skin Qualified Code(s): I83.013 - Varicose veins of right lower extremity with ulcer of ankle; L97.311 - Non-pressure chronic ulcer of right ankle limited to breakdown of skin PLAN: Refer to Dr. Galaviz for her right lower leg edema and abnormal venous ultrasounds. Obvious occlusions to her GSV's and she has discoloration to the leg with swelling and pain. (3) Non-pressure ulcer of right lower extremity: CODE(S): L97.919 - Non-pressure chronic ulcer of unspecified part of right lower leg with unspecified severity QUALIFIERS: Non-pressure ulcer stage: with fat layer exposed Qualified Code(s): L97.912 - Non-pressure chronic ulcer of unspecified part of right lower leg with fat layer exposed PLAN: EpiFix #3applied wound veil over top and Steri-Strips then Aquacel extra and a dry dressing Follow-up in 1 week with another provider for epi #2 Patient is to finish antibiotic therapy for the infection. (4) Nonhealing nonsurgical wound: CODE(S): T14.8XXA - Other injury of unspecified body region, initial encounter
[2023-09-27 09:58] VITALS: BP 139/62; PULSE 70; RESP 16; TEMP 36.2
--- NOTE | 2023-09-27 10:37 | PCM.WC.PN ---
History of Present Illness Date of Service: 09/27/23 Chief Complaint: Follow-up on her right lower leg lateral area wound nonhealing since at least November. History of Wound: 72-year-old white female in [place] where she is living during the winter. She had a growth removed from her right lateral lower leg. She is still not sure if it is cancer or not. After finally getting through to the dermatology she found that they never sent a biopsy off. She saw her own doctor up here and she was referred to us from her and put on cephalexin. Recently she was taken off her Lasix and has terrible edema of her lower extremities and abdomen. Patient states she has gained 9 pounds Patient had been referred to dermatology and has returned after they did Mohs surgery on her right lateral lower leg. They state they got all the cancer out. We will reapply for EpiFix to restart her. We will also also refer to Dr. Galaviz for vascular problems she is having in her right lower leg. Her biggest complaint is that she is swelling a lot in her lower extremities. Worried about a blood clot Now she has breast cancer and is being seen by oncology at [place] for that. She has left total mastectomy on 06/12/2023. She states she is healing well from that. Progress of Wound: The francis wound is healed. The right lateral ankle wound is filling in nicely has islands of new skin developing almost into a horseshoe shape. No sign of infection no odor still very tender for her we will continue to debride the edges. Subjective Subjective Patient is agreeable to plan we will continue with the EpiFix Objective Data Objective Data Size is about the same but does have islands of new skin inside the base of the wound we will continue using EpiFix #4 to wound base. No sign of infection noted Right lateral francis is healed Vital Signs: Vital Signs Temp Pulse Resp BP O2 Del Method 97.2 F L 70 16 139/62 H Room Air 09/27/23 09:58 09/27/23 09:58 09/27/23 09:58 09/27/23 09:58 09/27/23 09:58 Oxygen Delivery Method Room Air Lab / Micro Data Attestation: I reviewed the patient's lab results. Physical Exam Const oriented x3 General Appearance: cooperative Exam Limitations: no limitations HEENT normocephalic Head and Scalp: normal to inspection Face and Sinus: normal facial exam Nose: external nose normal General Ear: hearing grossly impaired External Ear: external ears normal Mouth: oral and palatal mucosa normal Eyes PERRL General Eye: normal appearance of both eyes Neck full ROM General: normal visual inspection Resp normal respiratory effort Effort and Inspection: able to speak in complete sentences Auscultation: clear to auscultation bilaterally Cardio regular rate and regular rhythm Palpation: normal PMI Rate: regular rate Rhythm: regular rhythm GI Auscultation: normoactive bowel sounds Palpation: soft and no hepatosplenomegaly external exam normal Back/Spine Cervical Spine: cervical ROM normal Thoracic Spine / Upper Back: normal to inspection Lumbar Spine / Lower Back: normal to inspection Extremity normal to inspection General Extremity: normal exam except as noted Skin no rashes or lesions noted Neuro oriented x3 Psych Appearance: grossly normal Speech: normal speech Thought Content: normal thought content Judgement: judgement good Debridement Note Debridement Note Wound debrided: Right francis Laterality: Right No debridement was completed: No debridement was completed today Post-Debridement Measurements and Additional Note: Post-Debridement Measurements/Treatment - Nurse 1 - General Ulcer Assessment Start: 09/06/23 09:48 Freq: Status: Active Protocol: [email or web address] Activity Type Activity Date Activity User E-sign Co-sign Detail Recorded Client Recorded Date Recorded By Document 09/06/23 09:49 DL Desktop 09/06/23 09:59 DL Document 09/13/23 09:49 DL Desktop 09/13/23 09:58 DL Document 09/27/23 09:58 [facility] Desktop 09/27/23 10:01 [facility] 09/06/23 09/13/23 09/27/23 09:49 09:49 09:58 - Today's Visit Information Type of service Follow-up Visit Follow-up Visit Follow-up Visit (Physician/METAL SMELTER (Physician/METAL SMELTER (Physician/METAL SMELTER ) ) ) Arrival Mode Ambulatory Ambulatory,Cane Ambulatory,Cane Transfer Assistance None None None Patient Identification Verified (Name & Yes Yes Yes ) Patient Requires Transmission-Based No No Precautions Vital Signs Temperature (97.8 F-99.1 F) 97.3 F L 96.2 F L 97.2 F L Temperature Source Temporal Temporal Temporal Pulse Rate (60-100) 70 65 70 Pulse Location Monitor Monitor Monitor Respiratory Rate (12-18) 20 H 20 H 16 Respiratory rate source Observation Observation Observation Oxygen Delivery Method Room Air Blood Pressure (90/60-120/80) 123/69 H 120/54 L 139/62 H Blood Pressure Mean (mm Hg) 87 76 87 Source Monitor Monitor Monitor Position Sitting Sitting Blood Pressure Location Right Arm History Since Last Visit- (Skip if this is Patient's initial visit) Have you changed medications since your No No No last visit? Any new allergies or adverse reactions No No No Had a fall/change in ADL's that may No No No increase risk of falls Signs or symptoms of abuse and/or No No No neglect since last visit Have you been in the hospital since your No No No last visit? Has dressing in place as prescribed Yes Yes Yes Has compression in place as prescribed Yes Yes Yes Has offloadiing in place as prescribed N/A N/A N/A Experienced any changes in pain level or No No No management Left Footwear Regular Shoe Regular Shoe Right Footwear Regular Shoe Regular Shoe Pain Scale: 0-10 Numeric Is Patient Pain Free? Yes Yes Yes WC - Nurse 1 - General Ulcer Measurement Start: 09/06/23 09:48 Freq: Status: Active Protocol: Activity Type Activity Date Activity User E-sign Co-sign Detail Recorded Client Recorded Date Recorded By Document 09/06/23 09:49 DL Desktop 09/06/23 09:59 DL Document 09/13/23 09:49 DL Desktop 09/13/23 09:58 DL Document 09/27/23 09:58 [facility] Desktop 09/27/23 10:01 BMF 09/06/23 09/13/23 09/27/23 09:49 09:49 09:58 Wound Center Nurse 1 #1- R LAT LE (P/O BASAL CELL CA) -Combined with other wound No No -Current Size (cm) - Length 1.3 0.6 0.1 -Current Size (cm) - Width 1.3 1 0.1 -Current Size (cm) - Depth 0.1 0.1 0.1 -Total Square Cm 1.69 0.6 0.01 -Date of Last Picture (Recall this 09/06/23 09/27/23 field) -Photo Taken Yes -Epithelialization Large 67-100% -Exudate Amt Medium Small -Exudate Type Serosanguineous -Wound Margin Distinct, Distinct, Outline Outline Attached Attached -Granulation Amt Large (67-100%) Large (67-100%) -Granulation Quality [place],Red [place] -Necrosis Amt None Present (0 Small (1-33%) %) -Necrotic Tissue Type Adherent Slough -Structure Exposed N/A N/A -Texture (Elif-wound Skin Appearance) Scarring Scarring Assessed, Scarring -Moisture (Elif-wound Skin Appearance) No Abnormality No Abnormality Assessed -Color (Elif-wound Skin Appearance) Hemosiderin Hemosiderin Assessed Staining Staining -Temperature (Elif-wound Skin No Abnormality No Abnormality No Abnormality Appearance) (Pt Warm) (Pt Warm) (Pt Warm) -Tenderness on Palpation (Elif-wound Yes No Skin Appearance) -Ulcer Cleansing Soap and Water Soap and Water Soap and Water -Foul Odor after Cleansing No No No -Anesthetic Used 5% Lidocaine 5% Lidocaine Gel Gel #3 right lateral ankle -Combined with other wound No -Current Size (cm) - Length 1.6 1.5 1.7 -Current Size (cm) - Width 1.2 2 2.2 -Current Size (cm) - Depth 0.4 0.2 0.2 -Total Square Cm 1.92 3.0 3.74 -Date of Last Picture (Recall this 09/06/23 09/27/23 field) -Photo Taken Yes No Yes -Epithelialization None Present -Tunneling No -Undermining/Tunneling No -Circular Undermining No -Exudate Amt Medium Medium Medium -Exudate Type Serosanguineous Serosanguineous Serosanguineous -Wound Margin Distinct, Distinct, Distinct, Outline Outline Outline Attached Attached Attached -Granulation Amt None Present (0 Small (1-33%) Medium (34-66%) %) -Granulation Quality Red Red -Slough/Fibrin Yes -Necrosis Amt Large (67-100%) Large (67-100%) Medium (34-66%) -Necrotic Tissue Type Adherent Slough Adherent Slough Adherent Slough -Structure Exposed N/A N/A -Texture (Elif-wound Skin Appearance) Assessed Scarring Assessed, Scarring -Moisture (Elif-wound Skin Appearance) Assessed No Abnormality Assessed -Color (Elif-wound Skin Appearance) Assessed Hemosiderin Assessed, Staining Erythema -Temperature (Elif-wound Skin No Abnormality No Abnormality No Abnormality Appearance) (Pt Warm) (Pt Warm) (Pt Warm) -Tenderness on Palpation (Elif-wound Yes Yes No Skin Appearance) -Ulcer Cleansing Soap and Water Soap and Water Soap and Water -Foul Odor after Cleansing No No No -Anesthetic Used 5% Lidocaine 5% Lidocaine 5% Lidocaine Gel Gel Gel Right Calf (cm) 33 31.5 32 Right Ankle (cm) 23.5 23.5 23.4 WC - Nurse 2 - General Ulcer CM Notes Start: 09/06/23 09:48 Freq: Status: Active Protocol: Activity Type Activity Date Activity User E-sign Co-sign Detail Recorded Client Recorded Date Recorded By Document 09/06/23 10:04 JF Laptop 09/06/23 10:11 JF Document 09/13/23 10:05 MW Desktop 09/13/23 10:15 MW Edit Result 09/13/23 10:05 MW (1) [id number] 09/14/23 06:58 PL Document 09/27/23 10:12 MW Desktop 09/27/23 10:18 MW (1) #3 right lateral ankle - Apply Skin Sub - 1st 25 sq cm - Legs => 1 09/06/23 09/13/23 09/27/23 10:04 10:05 10:12 Wound Center Nurse 2 #1- R LAT LE (P/O BASAL CELL CA) -Time 10:05 10:08 10:16 -Correct Patient Yes Yes Yes -Correct Side, Site, Position Yes Yes Yes -Correct Procedure Yes Yes Yes -Procedure Performed Yes Yes No -Type of Procedure Debridement Debridement -Clinical Debridement Subcutaneous Subcutaneous -Tissue Removed Subcutaneous Subcutaneous -Post Debridement (cm) - Length 1.5 0.2 0 -Post Debridement (cm) - Width 1.5 0.2 0 -Post Debridement (cm) - Depth 0.1 0.1 0 -Total Square (Post) (cm) 2.25 0.04 0 -Area of Debridement (cm) - Length 1.5 0.2 -Area of Debridement (cm) - Width 1.5 0.2 -Total Square (Area) (cm) 2.25 0.04 -Tunneling No No No -Undermining/Tunneling No No No -Circular Undermining No No No -Wound/Ulcer Outcome Not Healed Not Healed Not Healed -Ulcer Cleansing Rinsed/ Rinsed/ Irrigated with Irrigated with Saline Saline -Foul Odor after Cleansing No No -Bioengineered Tissue No No -Bleeding Controlled with Pressure Pressure -Treatment Response Procedure Procedure Tolerated Well Tolerated Well -Offloading No No -Debridement - Subq, 1st 20sq cm Yes Yes #3 right lateral ankle -Time 10:04 10:06 10:14 -Correct Patient Yes Yes Yes -Correct Side, Site, Position Yes Yes Yes -Correct Procedure Yes Yes Yes -Procedure Performed Yes Yes Yes -Type of Procedure Debridement Debridement Debridement -Clinical Debridement Subcutaneous Subcutaneous Subcutaneous -Tissue Removed Subcutaneous Subcutaneous Subcutaneous -Post Debridement (cm) - Length 1.5 1.9 1.8 -Post Debridement (cm) - Width 1.5 1.7 2.0 -Post Debridement (cm) - Depth 0.2 0.3 0.3 -Total Square (Post) (cm) 2.25 3.23 3.60 -Area of Debridement (cm) - Length 1.5 1.9 1.8 -Area of Debridement (cm) - Width 1.5 1.7 2.0 -Total Square (Area) (cm) 2.25 3.23 3.60 -Tunneling No No No -Undermining/Tunneling No No No -Circular Undermining No No No -Wound/Ulcer Outcome Not Healed Not Healed Not Healed -Ulcer Cleansing Rinsed/ Rinsed/ Rinsed/ Irrigated with Irrigated with Irrigated with Saline Saline Saline -Foul Odor after Cleansing No No No -Bioengineered Tissue Yes Yes Yes -Type of Bioengineered Tissue Epifix -Type of Bioengineered Tissue Epifix Epifix -Expiration Date 05/05/28 05/05/28 05/05/28 -Product Lot Number [id number] -Percent Used 100 100 100 -Lot number of Saline Used [id number] -Bleeding Controlled with Pressure Pressure Pressure -Treatment Response Procedure Procedure Procedure Tolerated Well Tolerated Well Tolerated Well -Offloading No No No -Debridement - Subq, 1st 20sq cm No No No -Apply Skin Sub - 1st 25 sq cm - Legs 1 1 1 -Epifix (per sq cm) 4 4 4 Pain Scale: 0-10 Numeric Is Patient Pain Free? Yes Yes Yes WC - Nurse 3 - General Ulcer D/C NN Start: 09/06/23 09:48 Freq: Status: Active Protocol: Activity Type Activity Date Activity User E-sign Co-sign Detail Recorded Client Recorded Date Recorded By Document 09/06/23 10:21 DL Desktop 09/06/23 10:23 DL Document 09/13/23 10:21 MW Desktop 09/13/23 10:22 MW Document 09/27/23 10:22 DL Desktop 09/27/23 10:24 DL 09/06/23 09/13/23 09/27/23 10:21 10:21 10:22 Wound Care Center Nurse 3 #1- R LAT LE (P/O BASAL CELL CA) -Ulcer Cleansing Not Cleansed -Foul Odor after Cleansing No No -Negative Pressure Wound Therapy N/A -Primary Dressing Applied Mepilex Border Mepilex Border -Other Dressing epifix -Primary Dressing Covered/Secured with Dry Gauze -Mepilex Border 1 1 #3 right lateral ankle -Ulcer Cleansing Not Cleansed -Foul Odor after Cleansing No No No -Negative Pressure Wound Therapy N/A -Primary Dressing Applied Mepilex Border Mepilex Border Aquacel Extra, Mepilex Border -Other Dressing Epifix Epifix -Primary Dressing Covered/Secured with Dry Gauze -Aquacel Extra 1 -Mepilex Border 1 1 1 albert -Stockings Yes Yes Treatment Response Procedure Procedure Procedure Tolerated Well Tolerated Well Tolerated Well Pain Scale: 0-10 Numeric Is Patient Pain Free? Yes Yes Yes Teaching: Wound Center Dressing Your Wound -Person Taught Patient -Teaching Method Discussion, Demonstration -Response to teaching Verbalize understanding WC - Visit Discharge Discharge Condition Stable Stable Stable Ambulatory Status Ambulatory,Cane Ambulatory,Cane Ambulatory,Cane Transportation Private Auto Private Auto Private Auto Accompanied by self Medication Reconcilliation completed & No provided to patient/care provider Clinical Summary of Care Provided Yes Additional Wound Wound debrided: Right ankle venous ulcer Laterality: Right Type of Debridement: Excisional debridement Anesthesia Used: 5% Lidocaine Gel Depth: in the subcutaneous layer Percentage of wound debrided: 100 Instrument Used: 3mm curette Tissue Removed: Fibrin Severity: Fat Layer Exposed Amount of bleeding with debridement: Mild Bleeding Controlled with: Compression and gauze Patient tolerated procedure: Patient tolerated procedure well Assessment/Plan Assessment/Plan (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: CODE(S): C44.721 - Squamous cell carcinoma of skin of unspecified lower limb, including hip QUALIFIERS: Laterality: right Qualified Code(s): C44.722 - Squamous cell carcinoma of skin of right lower limb, including hip PLAN: Wound resolved (2) Venous ulcer of ankle: CODE(S): I83.003 - Varicose veins of unspecified lower extremity with ulcer of ankle; L97.309 - Non-pressure chronic ulcer of unspecified ankle with unspecified severity QUALIFIERS: Varicose vein presence: with varicose veins Laterality: right Non-pressure ulcer stage: limited to breakdown of skin Qualified Code(s): I83.013 - Varicose veins of right lower extremity with ulcer of ankle; L97.311 - Non-pressure chronic ulcer of right ankle limited to breakdown of skin PLAN: Refer to Dr. Galaviz for her right lower leg edema and abnormal venous ultrasounds. Obvious occlusions to her GSV's and she has discoloration to the leg with swelling and pain. (3) Non-pressure ulcer of right lower extremity: CODE(S): L97.919 - Non-pressure chronic ulcer of unspecified part of right lower leg with unspecified severity QUALIFIERS: Non-pressure ulcer stage: with fat layer exposed Qualified Code(s): L97.912 - Non-pressure chronic ulcer of unspecified part of right lower leg with fat layer exposed PLAN: EpiFix #4 applied wound veil over top and Steri-Strips then Aquacel extra and a dry dressing Follow-up in 1 week . (4) Nonhealing nonsurgical wound: CODE(S): T14.8XXA - Other injury of unspecified body region, initial encounter
[2023-10-04 09:58] VITALS: BP 112/50; PULSE 62; RESP 16; TEMP 36.2
--- NOTE | 2023-10-04 12:10 | PN.PCM_ITS ---
History of Present Illness Date of Service: 10/04/23 Chief Complaint: Follow-up on her right lower leg lateral area wound nonhealing since at least November. History of Wound: 72-year-old white female in [place] where she is living during the winter. She had a growth removed from her right lateral lower leg. She is still not sure if it is cancer or not. After finally getting through to the dermatology she found that they never sent a biopsy off. She saw her own doctor up here and she was referred to us from her and put on cephalexin. Recently she was taken off her Lasix and has terrible edema of her lower extremities and abdomen. Patient states she has gained 9 pounds Patient had been referred to dermatology and has returned after they did Mohs surgery on her right lateral lower leg. They state they got all the cancer out. We will reapply for EpiFix to restart her. We will also also refer to Dr. Galaviz for vascular problems she is having in her right lower leg. Her biggest complaint is that she is swelling a lot in her lower extremities. Worried about a blood clot Now she has breast cancer and is being seen by oncology at [facility] [place] for that. She has left total mastectomy on 06/12/2023. She states she is healing well from that. Progress of Wound: The francis wound is healed. The right lateral ankle wound is filling in nicely has islands of new skin developing almost into a horseshoe shape. No sign of infection no odor still very tender for her we will continue to debride the edges. Will continue using the EpiFix doing well Patient was seen by Dr. Galaviz and was told that she has 2 vessels that need to be fixed in her right lower leg patient is going to wait till she comes back in February. Patient would like to leave for [place] in October Subjective Subjective Patient agrees with plan of care of using EpiFix Objective Data Objective Data No sign of infection wound is healing with islands of new skin developing from the inside out tolerating the EpiFix well. Vital Signs: Vital Signs Temp Pulse Resp BP O2 Del Method 97.1 F L 62 16 112/50 L Room Air 10/04/23 09:58 10/04/23 09:58 10/04/23 09:58 10/04/23 09:58 10/04/23 09:58 Oxygen Delivery Method Room Air Physical Exam Const oriented x3 General Appearance: cooperative Exam Limitations: no limitations HEENT normocephalic Head and Scalp: normal to inspection Face and Sinus: normal facial exam Nose: external nose normal General Ear: hearing grossly impaired External Ear: external ears normal Mouth: oral and palatal mucosa normal Eyes PERRL General Eye: normal appearance of both eyes Neck full ROM General: normal visual inspection Resp normal respiratory effort Effort and Inspection: able to speak in complete sentences Auscultation: clear to auscultation bilaterally Cardio regular rate and regular rhythm Palpation: normal PMI Rate: regular rate Rhythm: regular rhythm GI Auscultation: normoactive bowel sounds Palpation: soft and no hepatosplenomegaly external exam normal Back/Spine Cervical Spine: cervical ROM normal Thoracic Spine / Upper Back: normal to inspection Lumbar Spine / Lower Back: normal to inspection Extremity normal to inspection General Extremity: normal exam except as noted Skin no rashes or lesions noted Neuro oriented x3 Psych Appearance: grossly normal Speech: normal speech Thought Content: normal thought content Judgement: judgement good Debridement Note Debridement Note Wound debrided: Right francis Laterality: Right No debridement was completed: No debridement was completed today Post-Debridement Measurements and Additional Note: Post-Debridement Measurements/Treatment - Nurse 1 - General Ulcer Assessment Start: 09/06/23 09:48 Freq: Status: Active Protocol: SAHIL Activity Type Activity Date Activity User E-sign Co-sign Detail Recorded Client Recorded Date Recorded By Document 09/06/23 09:49 DL Desktop 09/06/23 09:59 DL Document 09/13/23 09:49 DL Desktop 09/13/23 09:58 DL Document 09/27/23 09:58 [facility] Desktop 09/27/23 10:01 [facility] Document 10/04/23 09:58 [facility] Desktop 10/04/23 10:09 F 09/06/23 09/13/23 09/27/23 09:49 09:49 09:58 - Today's Visit Information Type of service Follow-up Visit Follow-up Visit Follow-up Visit (Physician/HISTORICAL SOCIETY DIRECTOR (Physician/HISTORICAL SOCIETY DIRECTOR (Physician/HISTORICAL SOCIETY DIRECTOR ) ) ) Arrival Mode Ambulatory Ambulatory,Cane Ambulatory,Cane Transfer Assistance None None None Patient Identification Verified (Name & Yes Yes Yes ) Patient Requires Transmission-Based No No Precautions Vital Signs Temperature (97.8 F-99.1 F) 97.3 F L 96.2 F L 97.2 F L Temperature Source Temporal Temporal Temporal Pulse Rate (60-100) 70 65 70 Pulse Location Monitor Monitor Monitor Respiratory Rate (12-18) 20 H 20 H 16 Respiratory rate source Observation Observation Observation Oxygen Delivery Method Room Air Blood Pressure (90/60-120/80) 123/69 H 120/54 L 139/62 H Blood Pressure Mean (mm Hg) 87 76 87 Source Monitor Monitor Monitor Position Sitting Sitting Blood Pressure Location Right Arm History Since Last Visit- (Skip if this is Patient's initial visit) Have you changed medications since your No No No last visit? Any new allergies or adverse reactions No No No Had a fall/change in ADL's that may No No No increase risk of falls Signs or symptoms of abuse and/or No No No neglect since last visit Have you been in the hospital since your No No No last visit? Has dressing in place as prescribed Yes Yes Yes Has compression in place as prescribed Yes Yes Yes Has offloadiing in place as prescribed N/A N/A N/A Experienced any changes in pain level or No No No management Left Footwear Regular Shoe Regular Shoe Right Footwear Regular Shoe Regular Shoe Pain Scale: 0-10 Numeric Is Patient Pain Free? Yes Yes Yes 10/04/23 09:58 WC - Today's Visit Information Type of service Follow-up Visit (Physician/HISTORICAL SOCIETY DIRECTOR ) Arrival Mode Ambulatory,Cane Transfer Assistance None Patient Identification Verified (Name & Yes ) Patient Requires Transmission-Based No Precautions Vital Signs Temperature (97.8 F-99.1 F) 97.1 F L Temperature Source Temporal Pulse Rate (60-100) 62 Pulse Location Monitor Respiratory Rate (12-18) 16 Respiratory rate source Observation Oxygen Delivery Method Room Air Blood Pressure (90/60-120/80) 112/50 L Blood Pressure Mean (mm Hg) 70 Source Monitor Position Sitting Blood Pressure Location Right Arm History Since Last Visit- (Skip if this is Patient's initial visit) Have you changed medications since your No last visit? Any new allergies or adverse reactions No Had a fall/change in ADL's that may No increase risk of falls Signs or symptoms of abuse and/or No neglect since last visit Have you been in the hospital since your No last visit? Has dressing in place as prescribed Yes Has compression in place as prescribed Yes Has offloadiing in place as prescribed N/A Experienced any changes in pain level or No management Left Footwear Regular Shoe Right Footwear Regular Shoe Pain Scale: 0-10 Numeric Is Patient Pain Free? Yes WC - Nurse 1 - General Ulcer Measurement Start: 09/06/23 09:48 Freq: Status: Active Protocol: Activity Type Activity Date Activity User E-sign Co-sign Detail Recorded Client Recorded Date Recorded By Document 09/06/23 09:49 DL Desktop 09/06/23 09:59 DL Document 09/13/23 09:49 DL Desktop 09/13/23 09:58 DL Document 09/27/23 09:58 [facility] Desktop 09/27/23 10:01 BMF Document 10/04/23 09:58 [facility] Desktop 10/04/23 10:09 BMF 09/06/23 09/13/23 09/27/23 09:49 09:49 09:58 Wound Center Nurse 1 #1- R LAT LE (P/O BASAL CELL CA) -Combined with other wound No No -Current Size (cm) - Length 1.3 0.6 0.1 -Current Size (cm) - Width 1.3 1 0.1 -Current Size (cm) - Depth 0.1 0.1 0.1 -Total Square Cm 1.69 0.6 0.01 -Date of Last Picture (Recall this 09/06/23 09/27/23 field) -Photo Taken Yes -Epithelialization Large 67-100% -Exudate Amt Medium Small -Exudate Type Serosanguineous -Wound Margin Distinct, Distinct, Outline Outline Attached Attached -Granulation Amt Large (67-100%) Large (67-100%) -Granulation Quality [place],Red [place] -Necrosis Amt None Present (0 Small (1-33%) %) -Necrotic Tissue Type Adherent Slough -Structure Exposed N/A N/A -Texture (Elif-wound Skin Appearance) Scarring Scarring Assessed, Scarring -Moisture (Elif-wound Skin Appearance) No Abnormality No Abnormality Assessed -Color (Elif-wound Skin Appearance) Hemosiderin Hemosiderin Assessed Staining Staining -Temperature (Elif-wound Skin No Abnormality No Abnormality No Abnormality Appearance) (Pt Warm) (Pt Warm) (Pt Warm) -Tenderness on Palpation (Elif-wound Yes No Skin Appearance) -Ulcer Cleansing Soap and Water Soap and Water Soap and Water -Foul Odor after Cleansing No No No -Anesthetic Used 5% Lidocaine 5% Lidocaine Gel Gel #3 right lateral ankle -Combined with other wound No -Current Size (cm) - Length 1.6 1.5 1.7 -Current Size (cm) - Width 1.2 2 2.2 -Current Size (cm) - Depth 0.4 0.2 0.2 -Total Square Cm 1.92 3.0 3.74 -Date of Last Picture (Recall this 09/06/23 09/27/23 field) -Photo Taken Yes No Yes -Epithelialization None Present -Tunneling No -Undermining/Tunneling No -Circular Undermining No -Exudate Amt Medium Medium Medium -Exudate Type Serosanguineous Serosanguineous Serosanguineous -Wound Margin Distinct, Distinct, Distinct, Outline Outline Outline Attached Attached Attached -Granulation Amt None Present (0 Small (1-33%) Medium (34-66%) %) -Granulation Quality Red Red -Slough/Fibrin Yes -Necrosis Amt Large (67-100%) Large (67-100%) Medium (34-66%) -Necrotic Tissue Type Adherent Slough Adherent Slough Adherent Slough -Structure Exposed N/A N/A -Texture (Elif-wound Skin Appearance) Assessed Scarring Assessed, Scarring -Moisture (Elif-wound Skin Appearance) Assessed No Abnormality Assessed -Color (Elif-wound Skin Appearance) Assessed Hemosiderin Assessed, Staining Erythema -Temperature (Elif-wound Skin No Abnormality No Abnormality No Abnormality Appearance) (Pt Warm) (Pt Warm) (Pt Warm) -Tenderness on Palpation (Elif-wound Yes Yes No Skin Appearance) -Ulcer Cleansing Soap and Water Soap and Water Soap and Water -Foul Odor after Cleansing No No No -Anesthetic Used 5% Lidocaine 5% Lidocaine 5% Lidocaine Gel Gel Gel Lower Limb Edema Present Right Calf (cm) 33 31.5 32 Right Ankle (cm) 23.5 23.5 23.4 10/04/23 09:58 Wound Center Nurse 1 #1- R LAT LE (P/O BASAL CELL CA) -Combined with other wound -Current Size (cm) - Length -Current Size (cm) - Width -Current Size (cm) - Depth -Total Square Cm -Date of Last Picture (Recall this field) -Photo Taken -Epithelialization -Exudate Amt -Exudate Type -Wound Margin -Granulation Amt -Granulation Quality -Necrosis Amt -Necrotic Tissue Type -Structure Exposed -Texture (Elif-wound Skin Appearance) -Moisture (Elif-wound Skin Appearance) -Color (Elif-wound Skin Appearance) -Temperature (Elif-wound Skin Appearance) -Tenderness on Palpation (Elif-wound Skin Appearance) -Ulcer Cleansing -Foul Odor after Cleansing -Anesthetic Used #3 right lateral ankle -Combined with other wound No -Current Size (cm) - Length 2.2 -Current Size (cm) - Width 2.5 -Current Size (cm) - Depth 0.3 -Total Square Cm 5.50 -Date of Last Picture (Recall this field) -Photo Taken No -Epithelialization None Present -Tunneling No -Undermining/Tunneling No -Circular Undermining No -Exudate Amt Large -Exudate Type Serosanguineous -Wound Margin Distinct, Outline Attached -Granulation Amt Small (1-33%) -Granulation Quality Red -Slough/Fibrin Yes -Necrosis Amt Large (67-100%) -Necrotic Tissue Type Adherent Slough -Structure Exposed -Texture (Elif-wound Skin Appearance) Assessed, Scarring -Moisture (Elif-wound Skin Appearance) Assessed,Dry/ Scaly -Color (Elif-wound Skin Appearance) Assessed, Hemosiderin Staining -Temperature (Elif-wound Skin No Abnormality Appearance) (Pt Warm) -Tenderness on Palpation (Elif-wound No Skin Appearance) -Ulcer Cleansing Soap and Water -Foul Odor after Cleansing No -Anesthetic Used 5% Lidocaine Gel Lower Limb Edema Present Yes Right Calf (cm) 32.8 Right Ankle (cm) 25.3 WC - Nurse 2 - General Ulcer CM Notes Start: 09/06/23 09:48 Freq: Status: Active Protocol: Activity Type Activity Date Activity User E-sign Co-sign Detail Recorded Client Recorded Date Recorded By Document 09/06/23 10:04 JF Laptop 09/06/23 10:11 JF Document 09/13/23 10:05 MW Desktop 09/13/23 10:15 MW Edit Result 09/13/23 10:05 MW (1) [id number] 09/14/23 06:58 PL Document 09/27/23 10:12 MW Desktop 09/27/23 10:18 MW Document 10/04/23 10:15 MW Desktop 10/04/23 10:21 MW (1) #3 right lateral ankle - Apply Skin Sub - 1st 25 sq cm - Legs => 1 09/06/23 09/13/23 09/27/23 10:04 10:05 10:12 Wound Center Nurse 2 #1- R LAT LE (P/O BASAL CELL CA) -Time 10:05 10:08 10:16 -Correct Patient Yes Yes Yes -Correct Side, Site, Position Yes Yes Yes -Correct Procedure Yes Yes Yes -Procedure Performed Yes Yes No -Type of Procedure Debridement Debridement -Clinical Debridement Subcutaneous Subcutaneous -Tissue Removed Subcutaneous Subcutaneous -Post Debridement (cm) - Length 1.5 0.2 0 -Post Debridement (cm) - Width 1.5 0.2 0 -Post Debridement (cm) - Depth 0.1 0.1 0 -Total Square (Post) (cm) 2.25 0.04 0 -Area of Debridement (cm) - Length 1.5 0.2 -Area of Debridement (cm) - Width 1.5 0.2 -Total Square (Area) (cm) 2.25 0.04 -Tunneling No No No -Undermining/Tunneling No No No -Circular Undermining No No No -Wound/Ulcer Outcome Not Healed Not Healed Not Healed -Ulcer Cleansing Rinsed/ Rinsed/ Irrigated with Irrigated with Saline Saline -Foul Odor after Cleansing No No -Bioengineered Tissue No No -Bleeding Controlled with Pressure Pressure -Treatment Response Procedure Procedure Tolerated Well Tolerated Well -Offloading No No -Debridement - Subq, 1st 20sq cm Yes Yes #3 right lateral ankle -Time 10:04 10:06 10:14 -Correct Patient Yes Yes Yes -Correct Side, Site, Position Yes Yes Yes -Correct Procedure Yes Yes Yes -Procedure Performed Yes Yes Yes -Type of Procedure Debridement Debridement Debridement -Clinical Debridement Subcutaneous Subcutaneous Subcutaneous -Tissue Removed Subcutaneous Subcutaneous Subcutaneous -Post Debridement (cm) - Length 1.5 1.9 1.8 -Post Debridement (cm) - Width 1.5 1.7 2.0 -Post Debridement (cm) - Depth 0.2 0.3 0.3 -Total Square (Post) (cm) 2.25 3.23 3.60 -Area of Debridement (cm) - Length 1.5 1.9 1.8 -Area of Debridement (cm) - Width 1.5 1.7 2.0 -Total Square (Area) (cm) 2.25 3.23 3.60 -Tunneling No No No -Undermining/Tunneling No No No -Circular Undermining No No No -Wound/Ulcer Outcome Not Healed Not Healed Not Healed -Ulcer Cleansing Rinsed/ Rinsed/ Rinsed/ Irrigated with Irrigated with Irrigated with Saline Saline Saline -Foul Odor after Cleansing No No No -Bioengineered Tissue Yes Yes Yes -Type of Bioengineered Tissue Epifix -Type of Bioengineered Tissue Epifix Epifix -Expiration Date 05/05/28 05/05/28 05/05/28 -Product Lot Number [id number] -Percent Used 100 100 100 -Lot number of Saline Used [id number] -Bleeding Controlled with Pressure Pressure Pressure -Treatment Response Procedure Procedure Procedure Tolerated Well Tolerated Well Tolerated Well -Offloading No No No -Debridement - Subq, 1st 20sq cm No No No -Apply Skin Sub - 1st 25 sq cm - Legs 1 1 1 -Epifix (per sq cm) 4 4 4 Pain Scale: 0-10 Numeric Is Patient Pain Free? Yes Yes Yes 10/04/23 10:15 Wound Center Nurse 2 #1- Deepika JAMESON (P/O BASAL CELL CA) -Time -Correct Patient -Correct Side, Site, Position -Correct Procedure -Procedure Performed -Type of Procedure -Clinical Debridement -Tissue Removed -Post Debridement (cm) - Length -Post Debridement (cm) - Width -Post Debridement (cm) - Depth -Total Square (Post) (cm) -Area of Debridement (cm) - Length -Area of Debridement (cm) - Width -Total Square (Area) (cm) -Tunneling -Undermining/Tunneling -Circular Undermining -Wound/Ulcer Outcome -Ulcer Cleansing -Foul Odor after Cleansing -Bioengineered Tissue -Bleeding Controlled with -Treatment Response -Offloading -Debridement - Subq, 1st 20sq cm #3 right lateral ankle -Time 10:17 -Correct Patient Yes -Correct Side, Site, Position Yes -Correct Procedure Yes -Procedure Performed Yes -Type of Procedure Debridement -Clinical Debridement Subcutaneous -Tissue Removed Subcutaneous -Post Debridement (cm) - Length 1.7 -Post Debridement (cm) - Width 2.3 -Post Debridement (cm) - Depth 0.3 -Total Square (Post) (cm) 3.91 -Area of Debridement (cm) - Length 1.7 -Area of Debridement (cm) - Width 2.3 -Total Square (Area) (cm) 3.91 -Tunneling No -Undermining/Tunneling No -Circular Undermining No -Wound/Ulcer Outcome Not Healed -Ulcer Cleansing Rinsed/ Irrigated with Saline -Foul Odor after Cleansing No -Bioengineered Tissue Yes -Type of Bioengineered Tissue Epifix -Type of Bioengineered Tissue -Expiration Date 06/04/28 -Product Lot Number [id number] -Percent Used 100 -Lot number of Saline Used [id number] -Bleeding Controlled with Pressure -Treatment Response Procedure Tolerated Well -Offloading No -Debridement - Subq, 1st 20sq cm No -Apply Skin Sub - 1st 25 sq cm - Legs 1 -Epifix (per sq cm) 4 Pain Scale: 0-10 Numeric Is Patient Pain Free? Yes WC - Nurse 3 - General Ulcer D/C NN Start: 09/06/23 09:48 Freq: Status: Active Protocol: Activity Type Activity Date Activity User E-sign Co-sign Detail Recorded Client Recorded Date Recorded By Document 09/06/23 10:21 DL Desktop 09/06/23 10:23 DL Document 09/13/23 10:21 MW Desktop 09/13/23 10:22 MW Document 09/27/23 10:22 DL Desktop 09/27/23 10:24 DL Document 10/04/23 10:21 MW Desktop 10/04/23 10:22 MW 09/06/23 09/13/23 09/27/23 10:21 10:21 10:22 Wound Care Center Nurse 3 #1- R LAT LE (P/O BASAL CELL CA) -Ulcer Cleansing Not Cleansed -Foul Odor after Cleansing No No -Negative Pressure Wound Therapy N/A -Primary Dressing Applied Mepilex Border Mepilex Border -Other Dressing epifix -Primary Dressing Covered/Secured with Dry Gauze -Mepilex Border 1 1 #3 right lateral ankle -Ulcer Cleansing Not Cleansed -Foul Odor after Cleansing No No No -Negative Pressure Wound Therapy N/A -Primary Dressing Applied Mepilex Border Mepilex Border Aquacel Extra, Mepilex Border -Other Dressing Epifix Epifix -Primary Dressing Covered/Secured with Dry Gauze -Aquacel Extra 1 -Mepilex Border 1 1 1 albert -Stockings Yes Yes Treatment Response Procedure Procedure Procedure Tolerated Well Tolerated Well Tolerated Well Pain Scale: 0-10 Numeric Is Patient Pain Free? Yes Yes Yes Teaching: Wound Center Dressing Your Wound -Person Taught Patient -Teaching Method Discussion, Demonstration -Response to teaching Verbalize understanding WC - Visit Discharge Discharge Condition Stable Stable Stable Ambulatory Status Ambulatory,Cane Ambulatory,Cane Ambulatory,Cane Transportation Private Auto Private Auto Private Auto Accompanied by self Medication Reconcilliation completed & No provided to patient/care provider Clinical Summary of Care Provided Yes 10/04/23 10:21 Wound Care Center Nurse 3 #1- R LAT LE (P/O BASAL CELL CA) -Ulcer Cleansing -Foul Odor after Cleansing -Negative Pressure Wound Therapy -Primary Dressing Applied -Other Dressing -Primary Dressing Covered/Secured with -Mepilex Border #3 right lateral ankle -Ulcer Cleansing Not Cleansed -Foul Odor after Cleansing -Negative Pressure Wound Therapy -Primary Dressing Applied Aquacel Extra, Mepilex Border -Other Dressing -Primary Dressing Covered/Secured with -Aquacel Extra 1 -Mepilex Border 1 albert -Stockings Treatment Response Procedure Tolerated Well Pain Scale: 0-10 Numeric Is Patient Pain Free? Yes Teaching: Wound Center Dressing Your Wound -Person Taught Patient -Teaching Method Discussion -Response to teaching Verbalize understanding WC - Visit Discharge Discharge Condition Stable Ambulatory Status Ambulatory,Cane Transportation Private Auto Accompanied by SELF Medication Reconcilliation completed & No provided to patient/care provider Clinical Summary of Care Provided Yes Additional Wound Wound debrided: Right ankle venous ulcer Laterality: Right Type of Debridement: Excisional debridement Anesthesia Used: 5% Lidocaine Gel Depth: in the subcutaneous layer Percentage of wound debrided: 100 Instrument Used: 3mm curette Tissue Removed: Fibrin Severity: Fat Layer Exposed Amount of bleeding with debridement: Mild Bleeding Controlled with: Compression and gauze Patient tolerated procedure: Patient tolerated procedure well Assessment/Plan Assessment/Plan (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: CODE(S): C44.721 - Squamous cell carcinoma of skin of unspecified lower limb, including hip QUALIFIERS: Laterality: right Qualified Code(s): C44.722 - Squamous cell carcinoma of skin of right lower limb, including hip PLAN: Wound resolved (2) Venous ulcer of ankle: CODE(S): I83.003 - Varicose veins of unspecified lower extremity with ulcer of ankle; L97.309 - Non-pressure chronic ulcer of unspecified ankle with unspecified severity QUALIFIERS: Varicose vein presence: with varicose veins Laterality: right Non-pressure ulcer stage: limited to breakdown of skin Qualified Code(s): I83.013 - Varicose veins of right lower extremity with ulcer of ankle; L97.311 - Non-pressure chronic ulcer of right ankle limited to breakdown of skin PLAN: Seen by Dr. Galaviz for her right lower leg edema and abnormal venous ultrasounds. Obvious occlusions to her GSV's and she has discoloration to the leg with swelling and pain. Patient has opted to wait till February to have leg fixed (3) Non-pressure ulcer of right lower extremity: CODE(S): L97.919 - Non-pressure chronic ulcer of unspecified part of right lower leg with unspecified severity QUALIFIERS: Non-pressure ulcer stage: with fat layer exposed Qualified Code(s): L97.912 - Non-pressure chronic ulcer of unspecified part of right lower leg with fat layer exposed PLAN: EpiFix #5 applied wound veil over top and Steri-Strips then Aquacel extra and a dry dressing Follow-up in 1 week . (4) Nonhealing nonsurgical wound: CODE(S): T14.8XXA - Other injury of unspecified body region, initial encounter
== END 2023-10-04 23:59 | disposition home or self-care (01) ==
LOC: WC 09:45
PROVIDERS: PCP Internal Medicine; Referring Provider Nurse Practitioner; Visit Provider Nurse Practitioner
DX: I83.013 Varicose veins of right lower extremity with ulcer of ankle (principal); L97.312 Non-pressure chronic ulcer of right ankle with fat layer exposed; L97.811 Non-pressure chronic ulcer of other part of right lower leg limited to breakdown of skin; I87.2 Venous insufficiency (chronic) (peripheral); R60.0 Localized edema; C44.721 Squamous cell carcinoma of skin of unspecified lower limb, including hip
CPT/HCPCS: 11042; 15271; Q4186

== ENCOUNTER → 2023-10-13 | Outpatient (CLI) | payer MEDICARE, OTHER, SELFPAY ==
--- NOTE | 2023-10-13 11:03 | VDLE_ITS ---
Reason For Study: RLE PAIN RIGHT GSV is normal. CFV is compressible, spontaneous, phasic, competent and demonstrates normal augmentation. FV is compressible, spontaneous, phasic, competent and demonstrates normal augmentation. POP V is compressible, spontaneous, phasic, competent and demonstrates normal augmentation. T/P Trunk is compressible. PTV is compressible. RT PerV is compressible. Procedure This is a venous duplex using B-mode, color flow and spectral Doppler. Exam performed in department. A preliminary report was called and/or faxed to Zina @ [phone] @ 11:30am. VL/Venous Duplex US, Unilateral Interpretation Summary Deep veins of the right lower extremity are patent and compressible segmentally . There is no evidence of right lower extremity deep vein thrombosis. The right great sapheno us vein appears patent and compressible segmentally. Ordering Physician: Zina Flores Referring Physician: Ernesto Rodriguez Performed By: Jocelyn Trevino, CLAU, RVT
== END | disposition home or self-care (01) ==
LOC: CVS 11:01
PROVIDERS: PCP Internal Medicine; Referring Provider Physician Assistant; Visit Provider Physician Assistant
DX: M79.604 Pain in right leg (principal); M79.89 Other specified soft tissue disorders
CPT/HCPCS: 93971

== ENCOUNTER → 2023-10-20 | Outpatient (CLI) | payer MEDICARE, OTHER, SELFPAY ==
--- NOTE | 2023-10-20 12:45 | ART_ITS ---
Reason For Study: Ulceration Procedure A bilateral lower extremity continuous wave Doppler with analog waveform analysis and ankle brachial indexes. Left Segmental Pressures Left posterior tibial artery = 122mmHg. Left dorsalis pedis artery = 125mmHg. Left digit = 83 mmHg. The left dorsalis pedis waveforms are triphasic. The left posterior tibial artery waveforms are triphasic. Right Segmental Pressures Right brachial= 109mmHg. Right posterior tibial artery = 142mmHg. Right dorsalis pedis artery = 157mmHg. Right digit = 116 mmHg. The right dorsalis pedis waveforms are triphasic. The right posterior tibial artery waveforms are biphasic. Indices The right ankle brachial index by the dorsalis pedis is 1.44. The right ankle brachial index by the posterior tibial artery is 1.30. The right digital-brachial index is 1.06. The left ankle brachial index by the dorsalis pedis is 1.15. The left ankle brachial index by the posterior tibial artery is 1.12. The left digital-brachial index is 0.76. VL/Ankle Brachial Index Interpretation Summary Right NEY 1.44, normal. Doppler/PVR waveforms of the right leg normal at rest. Left NEY 1.15, normal. Doppler/PVR waveforms of the left leg normal at rest. Ordering Physician: Shabbir Galaviz Referring Physician: Ernesto Rodriguez Performed By: Jenifer El RVT
== END | disposition home or self-care (01) ==
LOC: CVS 12:44
PROVIDERS: PCP Internal Medicine; Referring Provider Surgery Trauma Surgery; Visit Provider Surgery Trauma Surgery
DX: L97.912 Non-pressure chronic ulcer of unspecified part of right lower leg with fat layer exposed (principal)
CPT/HCPCS: 93922

== ENCOUNTER 2023-10-26 10:31 | Day surgery (SDC) | payer MEDICARE, OTHER, SELFPAY ==
[2023-10-26 11:01] LABS: Hematocrit 31.1 % (37-47); Hemoglobin 11.6 g/dL (12.0-15.0); Mean Corp Hgb Conc 37.3 g/dL (32-36); Mean Corpuscular Hgb 38.3 pg (27.0-32.0); Mean Corpuscular Volume 102.6 fL (81-99); Mean Platelet Vol. 9.3 fl (6.2-12.0); Platelet Count 121 K/mm3 (150-450); RBC Distribution Width CV 15.9 % (11.6-14.6); RBC Distribution Width SD 58.5 fl (35.1-43.9); Red Blood Count 3.03 M/mm3 (4.2-5.4); White Blood Count 5.2 K/mm3 (4.4-11.0)
[2023-10-26 11:44] LABS: Anion Gap 8 (5-15); BUN 6 mg/dL (7-18); Calcium,Total 8.9 mg/dL (8.5-10.1); Chloride 87 mmol/L (98-107); Creatinine, Serum 0.67 mg/dL (0.55-1.02); EST Glomerular Filtration Rate 92 mL/min (>60); Est Glom Filt Rate - Afr Amer 111 mL/min (>60); Glucose 124 mg/dL (74-106); Potassium 3.4 mmol/L (3.5-5.1); Sodium Level 125 mmol/L (136-145)
--- NOTE | 2023-10-26 13:21 | PCM.HP.STD ---
HPI - General HPI Narrative MARY ALICE GA, is a 73 F who presents with recurrent right lower extremity venous wounds, prior treatment of above knee segments. She presents for ablation of below knee incompetent GSV. [facility] Medical History Abnormal mammogram of left breast Age-related physical debility Alcohol use Arthritis Back pain Bleeding ulcer Breast cancer Broken hip Cancer Carotid stenosis, right Cellulitis of right leg Cirrhosis Dermatitis Elevated liver enzymes Encounter for education GERD (gastroesophageal reflux disease) High cholesterol History of edema History of skin cancer History of ulceration Hx of staphylococcal infection Hypertension Hypokalemia Hyponatremia Hypotension Injury of back Left breast lump Left hip pain Non-smoker Open wound Osteoporosis Post-menopausal Preoperative evaluation to rule out surgical contraindication Pulmonary embolism Screening for thyroid disorder Skin cancer Squamous cell skin cancer Ulcer of right leg Umbilical hernia Varicose veins of both lower extremities Vertigo Wears glasses Home Medications pantoprazole 40 mg tablet,delayed release 40 mg PO DAILY GERD #90 tabs 04/22/22 [Rx Last Taken Unknown] alendronate 70 mg tablet (Fosamax) 70 mg PO QWEEK JOINT SUPPORT #30 tabs 05/09/23 [Rx Last Taken Unknown] compress.stocking,knee,reg,lrg #2 ea 05/09/23 [Rx Last Taken Unknown] ascorbate calcium (vitamin C) 500 mg tablet 500 mg PO DAILY SUPPLEMENT 05/24/23 [History Last Taken Unknown] calcium carbonate 500 mg calcium (1,250 mg) chewable tablet (Calcium 500) 1,000 mg PO DAILY SUPPLEMENT 05/24/23 [History Last Taken Unknown] cholecalciferol (vitamin D3) 50 mcg (2,000 unit) capsule 50 mcg PO DAILY SUPPLEMENT 05/24/23 [History Last Taken Unknown] furosemide 40 mg tablet 40 mg PO DAILY DIURETIC 05/24/23 [History Last Taken Unknown] mecobalamin (vitamin B12) 1,000 mcg lozenges 1,000 mcg PO DAILY SUPPLEMENT 05/24/23 [History Last Taken Unknown] acetaminophen 500 mg capsule 500 mg PO Q6H PRN pain 06/08/23 [History Last Taken Unknown] nadolol 20 mg tablet 20 mg PO DAILY BP 06/08/23 [History Last Taken 06/11/23] spironolactone 50 mg tablet 50 mg PO BID BP 06/08/23 [History Last Taken Unknown] potassium chloride 20 mEq tablet,extended release(part/cryst) 20 meq PO DAILY SUPPLEMENT #90 tabs 07/25/23 [Rx Last Taken Unknown] anastrozole 1 mg tablet 1 mg PO DAILY #90 tabs 10/19/23 [Rx Last Taken Unknown] Allergy/AdvReac Type Severity Reaction Status Date / Time chlorhexidine Allergy Intermediate Rash Verified 09/21/23 15:39 [From Hibiclens] Family History Mother Alzheimer disease Father Heart disease Diabetes Surgical History History of hysterectomy History of knee replacement History of left hip replacement History of left mastectomy Hx of tonsillectomy Status post Mohs surgery Social History Smoking Status: Never smoker alcohol intake: current substance use type: does not use ROS Constitutional Constitutional: Denies chills, fever(s), frequent falls, lethargy or weakness Eyes Eyes: Denies blind spots, change in vision or loss of vision ENT HEENT: Denies bleeding gums, hoarseness or sore throat Cardiovascular Cardiovascular: Denies abdominal pain, bluish discoloration of hand/feet, chest pain with activity, claudication, cold extremities, cyanosis, dyspnea on exertion, erythema on extremities, irregular heart rhythm, leg edema, leg ulcers, numbness in extremities or weakness in extremities Respiratory/Chest Respiratory/Chest: Denies cough, excessive phlegm production, shortness of breath at rest, shortness of breath with exertion or wheezing Gastrointestinal Gastrointestinal: Denies anorexia, change in stool character, constipation, diarrhea, melena or rectal bleeding Genitourinary Genitourinary: Denies dysuria or hematuria Musculoskeletal Musculoskeletal: Denies abnormal gait Integumentary Integumentary: Reports other Details: ; Denies erythema, non-healing lesions or wounds Neurologic Neurologic: Denies abnormal speech, focal weakness, headache(s), loss of vision, numbness, paresthesias or sensory deficit Hematologic/Lymphatic Hematologic/Lymphatic: Denies easy bleeding, easy bruising or lymphadenopathy Vital Signs Vital Signs Vital Signs: Weight Weight: 148 lb Physical Exam Const alert, oriented x3, no apparent distress and healthy appearing General Appearance: cooperative; Negative for combative or lethargic Orientation / Consciousness: awake Exam Limitations: no limitations HEENT Head and Scalp: normocephalic and atraumatic Eyes EOMs intact bilaterally General Eye: normal appearance of both eyes Neck full ROM, no lymphadenopathy and thyroid normal General: trachea midline; Negative for lymphadenopathy or tenderness Thyroid: thyroid normal Lymph Lymphatic: Negative for no lymphadenopathy noted Resp normal respiratory effort and no use of accessory muscles Effort and Inspection: Negative for labored, stridor or audible wheezes Cardio regular rate and regular rhythm Back/Spine Cervical Spine: cervical ROM normal Extremity full ROM, normal capillary refill and no clubbing, cyanosis or edema Skin no rashes or lesions noted and no wounds Neuro oriented x3, CN's II-XII intact bilaterally, no focal motor deficits and no sensory deficits noted Psych thought process normal, cooperative, affect normal, speech normal and activity/motor behavior normal Results Lab / Micro Data 10/26/23 10:38 10/26/23 10:38 Labs: Laboratory Results - last 24 hr 10/26/23 10:38: WBC 5.2, RBC 3.03 L, Hgb 11.6 L, Hct 31.1 L, MCV 102.6 H, MCH 38.3 H, MCHC 37.3 H, RDW Std Deviation 58.5 H, RDW Coeff of Carlyle 15.9 H, Plt Count 121 L, MPV 9.3, Sodium 125 L, Potassium 3.4 L, Chloride 87 L, Carbon Dioxide 30.0, Anion Gap 8, BUN 6 L, Creatinine 0.67, Estim Creat Clear Calc 58.50, Est GFR (MDRD) Af Amer 111, Est GFR (MDRD) Non-Af 92, BUN/Creatinine Ratio 9.0 L, Glucose 124 H, Calcium 8.9 Assessment & Plan Assessment/Plan (1) Venous insufficiency of right lower extremity: PLAN: -right GSV chemical ablation
--- NOTE | 2023-10-26 15:58 | OP.PCM_ITS ---
Report of Operation Date of Procedure: 10/26/23 Pre-Operative Diagnosis: right lower extremity venous insufficiency with recurr ent ulceration Post-Operative Diagnosis: same Surgery/Procedure Performed:: right below knee saphenous ablation Surgeon: Shabbir Galaviz Type of Anesthesia: Local and Sedation,Conscious Estimated Blood Loss (mL): 2 Description of Procedure: HPI: Patient is a 73-year-old female with recurrent venous ulceration of the right lower extremity and previous above-knee great saphenous vein therapy. 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 Description of procedure: Upon obtaining informed consent and verification correct patient procedure site patient taken to [facility] where she was positioned prepped and draped in usual sterile fashion. Ultrasound used to evaluate the below the knee great saphenous vein. Skin overlying the great saphenous vein at the ankle was anesthetized 1% lidocaine the vessel accessed with micropuncture needle wire. This then changed out for a 7 [place] ablation sheath. Guidewire was then advanced through the sheath and positioned at the superior aspect of the patent saphenous vein. The ablation guide was then advanced over the wire and positioned at the most superior aspect of the great saphenous vein. The glue delivery catheter was then primed per lumber inspector's instructions and then advanced through the delivery guide. Glue was then instilled sequentially through the great saphenous vein per lumber inspector's instructions through the total length of the treatment zone. Glue catheter and guide were then withdrawn after which the 7 [place] sheath was withdrawn and manual pressure held for hemostasis was obtained. Dry sterile dressing and Colton wrap were then applied and patient was taken to recovery with dissipated discharged home.
== END 2023-10-26 17:08 | disposition home or self-care (01) ==
PROVIDERS: PCP Internal Medicine; Referring Provider Surgery Trauma Surgery; Visit Provider Surgery Trauma Surgery
DX: I87.2 Venous insufficiency (chronic) (peripheral) (principal); L97.919 Non-pressure chronic ulcer of unspecified part of right lower leg with unspecified severity; E78.00 Pure hypercholesterolemia, unspecified; I10 Essential (primary) hypertension; Z79.899 Other long term (current) drug therapy; Z86.711 Personal history of pulmonary embolism; I83.811 Varicose veins of right lower extremity with pain
CPT/HCPCS: 36415; 36482; 80048; 85027; 99152; 99153; C1894

== ENCOUNTER 2023-11-01 08:30 | Outpatient (RCR) | payer MEDICARE, OTHER, SELFPAY ==
[2023-10-05 00:20] VITALS: BP 112/50; PULSE 62; RESP 16; TEMP 36.2
[2023-10-11 09:55] VITALS: BP 128/47; PULSE 66; RESP 20; TEMP 36.6
--- NOTE | 2023-10-11 10:40 | PCM.WC.PN ---
History of Present Illness Date of Service: 10/11/23 Chief Complaint: Follow-up on her right lower leg lateral area wound nonhealing since at least November. History of Wound: 72-year-old white female in [place] where she is living during the winter. She had a growth removed from her right lateral lower leg. She is still not sure if it is cancer or not. After finally getting through to the dermatology she found that they never sent a biopsy off. She saw her own doctor up here and she was referred to us from her and put on cephalexin. Recently she was taken off her Lasix and has terrible edema of her lower extremities and abdomen. Patient states she has gained 9 pounds Patient had been referred to dermatology and has returned after they did Mohs surgery on her right lateral lower leg. They state they got all the cancer out. We will reapply for EpiFix to restart her. We will also also refer to Dr. Galaviz for vascular problems she is having in her right lower leg. Her biggest complaint is that she is swelling a lot in her lower extremities. Worried about a blood clot Now she has breast cancer and is being seen by oncology at [facility] for that. She has left total mastectomy on 06/12/2023. She states she is healing well from that. Progress of Wound: The right lateral lower leg is the same size may be slightly smaller only because she is growing from the inside out rather than Outside In she has islands of new skin developing which is good with the epi fix. The right whole leg is very edematous and she had canceled her appointment with Dr. Galaviz and is now trying to get back in because she is having a lot of pain in the leg from the clogged connectors and her calf and thigh. She still wearing her compression stockings though but she says by the end of the day her knee is just very swollen with fluid. Subjective Subjective Patient is pleased with the EpiFix and we will continue using EpiFix #6 to the right lateral lower leg Objective Data Objective Data No sign of infection patient healing well slowly because that veins need to be opened and that she would probably heal faster but she is going to try to get that appointment with Dr. Galaviz again. Otherwise she is healing from the inside out on the so debridement around the edges was maintained to get the fibrin off the edge so we will creep and also. Vital Signs: Vital Signs Temp Pulse Resp BP 98 F 66 20 H 128/47 H 10/11/23 09:55 10/11/23 09:55 10/11/23 09:55 10/11/23 09:55 Lab / Micro Data Attestation: I reviewed the patient's lab results. Debridement Note Debridement Note Wound debrided: Right francis Laterality: Right No debridement was completed: No debridement was completed today Post-Debridement Measurements and Additional Note: Post-Debridement Measurements/Treatment - Nurse 1 - General Ulcer Assessment Start: 10/11/23 09:55 Freq: Status: Active Protocol: SAHIL Activity Type Activity Date Activity User E-sign Co-sign Detail Recorded Client Recorded Date Recorded By Document 10/11/23 09:55 DL Acquaintableop 10/11/23 10:02 DL 10/11/23 09:55 WC - Today's Visit Information Type of service Follow-up Visit (Physician/AVIATION ELECTRICAL TECHNICIAN ) Arrival Mode Ambulatory Transfer Assistance None Patient Identification Verified (Name & Yes ) Patient Requires Transmission-Based No Precautions Vital Signs Temperature (97.8 F-99.1 F) 98 F Temperature Source Temporal Pulse Rate (60-100) 66 Pulse Location Monitor Respiratory Rate (12-18) 20 H Respiratory rate source Observation Blood Pressure (90/60-120/80) 128/47 H Blood Pressure Mean (mm Hg) 74 Source Monitor History Since Last Visit- (Skip if this is Patient's initial visit) Have you changed medications since your No last visit? Any new allergies or adverse reactions No Had a fall/change in ADL's that may No increase risk of falls Signs or symptoms of abuse and/or No neglect since last visit Have you been in the hospital since your No last visit? Has dressing in place as prescribed Yes Has compression in place as prescribed Yes Has offloadiing in place as prescribed N/A Experienced any changes in pain level or No management Pain Scale: 0-10 Numeric Is Patient Pain Free? Yes - Nurse 1 - General Ulcer Measurement Start: 10/11/23 09:55 Freq: Status: Active Protocol: Activity Type Activity Date Activity User E-sign Co-sign Detail Recorded Client Recorded Date Recorded By Document 10/11/23 09:55 DL Acquaintableop 10/11/23 10:02 DL 10/11/23 09:55 Wound Center Nurse 1 #3 right lateral ankle -Current Size (cm) - Length 2.1 -Current Size (cm) - Width 2.8 -Current Size (cm) - Depth 0.3 -Total Square Cm 5.88 -Photo Taken Yes -Exudate Amt Medium -Exudate Type Serosanguineous -Wound Margin Distinct, Outline Attached -Granulation Amt Medium (34-66%) -Granulation Quality Red -Necrosis Amt Medium (34-66%) -Necrotic Tissue Type Adherent Slough -Structure Exposed N/A -Texture (Elif-wound Skin Appearance) Localized Edema ,Scarring -Moisture (Elif-wound Skin Appearance) No Abnormality -Color (Elif-wound Skin Appearance) Hemosiderin Staining -Temperature (Elif-wound Skin No Abnormality Appearance) (Pt Warm) -Tenderness on Palpation (Elif-wound Yes Skin Appearance) -Ulcer Cleansing Soap and Water -Foul Odor after Cleansing No -Anesthetic Used 5% Lidocaine Gel Point of measurement (cm from the medial 36.5 instep) Point of Measurement (cm from the medial 25 instep) WC - Nurse 2 - General Ulcer CM Notes Start: 10/11/23 09:55 Freq: Status: Active Protocol: Activity Type Activity Date Activity User E-sign Co-sign Detail Recorded Client Recorded Date Recorded By Document 10/11/23 10:14 MW Desktop 10/11/23 10:21 MW 10/11/23 10:14 Wound Center Nurse 2 #3 right lateral ankle -Time 10:15 -Correct Patient Yes -Correct Side, Site, Position Yes -Correct Procedure Yes -Procedure Performed Yes -Type of Procedure Debridement -Clinical Debridement Subcutaneous -Tissue Removed Subcutaneous -Post Debridement (cm) - Length 2.0 -Post Debridement (cm) - Width 2.5 -Post Debridement (cm) - Depth 0.3 -Total Square (Post) (cm) 5.00 -Area of Debridement (cm) - Length 2.0 -Area of Debridement (cm) - Width 2.5 -Total Square (Area) (cm) 5.00 -Tunneling No -Undermining/Tunneling No -Circular Undermining No -Wound/Ulcer Outcome Healed- Epithelialized -Ulcer Cleansing Rinsed/ Irrigated with Saline -Foul Odor after Cleansing No -Bioengineered Tissue Yes -Type of Bioengineered Tissue Epifix -Expiration Date 07/05/28 -Product Lot Number [id number] -Percent Used 100 -Lot number of Saline Used [id number] -Bleeding Controlled with Pressure -Treatment Response Procedure Tolerated Well -Offloading No -Debridement - Subq, 1st 20sq cm No -Apply Skin Sub - 1st 25 sq cm - Legs 1 -Epifix (per sq cm) 4 Pain Scale: 0-10 Numeric Is Patient Pain Free? Yes WC - Nurse 3 - General Ulcer D/C NN Start: 10/11/23 09:55 Freq: Status: Active Protocol: Activity Type Activity Date Activity User E-sign Co-sign Detail Recorded Client Recorded Date Recorded By Document 10/11/23 10:21 MW Desktop 10/11/23 10:22 MW 10/11/23 10:21 Wound Care Center Nurse 3 #3 right lateral ankle -Ulcer Cleansing Not Cleansed -Negative Pressure Wound Therapy N/A -Primary Dressing Applied Aquacel Extra, Mepilex Border -Aquacel Extra 1 -Mepilex Border 1 Treatment Response Procedure Tolerated Well Pain Scale: 0-10 Numeric Is Patient Pain Free? Yes Teaching: Wound Center Dressing Your Wound -Person Taught Patient -Teaching Method Discussion -Response to teaching Verbalize understanding WC - Visit Discharge Discharge Condition Stable Ambulatory Status Ambulatory Transportation Private Auto Accompanied by self Medication Reconcilliation completed & No provided to patient/care provider Clinical Summary of Care Provided Yes Additional Wound Wound debrided: Right ankle venous ulcer Laterality: Right Type of Debridement: Excisional debridement Anesthesia Used: 5% Lidocaine Gel Depth: in the subcutaneous layer Percentage of wound debrided: 100 Instrument Used: 3mm curette Tissue Removed: Fibrin Severity: Fat Layer Exposed Amount of bleeding with debridement: Mild Bleeding Controlled with: Compression and gauze Patient tolerated procedure: Patient tolerated procedure well Assessment/Plan Assessment/Plan (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: CODE(S): C44.721 - Squamous cell carcinoma of skin of unspecified lower limb, including hip QUALIFIERS: Laterality: right Qualified Code(s): C44.722 - Squamous cell carcinoma of skin of right lower limb, including hip PLAN: Wound resolved (2) Venous ulcer of ankle: CODE(S): I83.003 - Varicose veins of unspecified lower extremity with ulcer of ankle; L97.309 - Non-pressure chronic ulcer of unspecified ankle with unspecified severity QUALIFIERS: Varicose vein presence: with varicose veins Laterality: right Non-pressure ulcer stage: limited to breakdown of skin Qualified Code(s): I83.013 - Varicose veins of right lower extremity with ulcer of ankle; L97.311 - Non-pressure chronic ulcer of right ankle limited to breakdown of skin PLAN: Seen by Dr. Galaviz for her right lower leg edema and abnormal venous ultrasounds. Obvious occlusions to her GSV's and she has discoloration to the leg with swelling and pain. Patient has opted to wait till February to have leg fixed (3) Non-pressure ulcer of right lower extremity: CODE(S): L97.919 - Non-pressure chronic ulcer of unspecified part of right lower leg with unspecified severity QUALIFIERS: Non-pressure ulcer stage: with fat layer exposed Qualified Code(s): L97.912 - Non-pressure chronic ulcer of unspecified part of right lower leg with fat layer exposed PLAN: EpiFix #6 applied wound veil over top and Steri-Strips then Aquacel extra and a dry dressing Follow-up in 1 week another provider. (4) Nonhealing nonsurgical wound: CODE(S): T14.8XXA - Other injury of unspecified body region, initial encounter
--- NOTE | 2023-10-18 08:07 | WC ---
10.11.23 RT LAT ANKLE
[2023-10-18 09:49] VITALS: BP 124/62; PULSE 74; RESP 16; TEMP 36.6
--- NOTE | 2023-10-18 11:47 | PCM.WC.PN ---
History of Present Illness Date of Service: 10/18/23 Chief Complaint: Follow-up on her right lower leg lateral area wound nonhealing since at least November. History of Wound: 72-year-old white female in [place] where she is living during the winter. She had a growth removed from her right lateral lower leg. She is still not sure if it is cancer or not. After finally getting through to the dermatology she found that they never sent a biopsy off. She saw her own doctor up here and she was referred to us from her and put on cephalexin. Recently she was taken off her Lasix and has terrible edema of her lower extremities and abdomen. Patient states she has gained 9 pounds Patient had been referred to dermatology and has returned after they did Mohs surgery on her right lateral lower leg. They state they got all the cancer out. We will reapply for EpiFix to restart her. We will also also refer to Dr. Galaviz for vascular problems she is having in her right lower leg. Her biggest complaint is that she is swelling a lot in her lower extremities. Worried about a blood clot Now she has breast cancer and is being seen by oncology at [facility] for that. She has left total mastectomy on 06/12/2023. She states she is healing well from that. Progress of Wound: The right lateral lower leg is the same size may be slightly smaller only because she is growing from the inside out rather than Outside In she has islands of new skin developing which is good with the epi fix. The right whole leg is very edematous and she had canceled her appointment with Dr. Galaviz and is now trying to get back in because she is having a lot of pain in the leg from the clogged connectors and her calf and thigh. She still wearing her compression stockings though but she says by the end of the day her knee is just very swollen with fluid. Subjective Subjective Mrs Negron is a 72-year-old female presenting for follow-up of full-thickness ulceration appreciated to the Right lower extremity. Patient is seen by the nurse practitioner at the wound care center but is out today on vacation. She is following up with Dr. Johnson for her care. She admits to having a biopsy to the distal ulceration which came back noncancerous. She has been doing home dressing changes at home without problems. She denies trauma. Denies constitutional symptoms. No other pedal complaints at this time. Objective Data Objective Data Vital Signs: Vital Signs Temp Pulse Resp BP O2 Del Method 97.9 F 74 16 124/62 H Room Air 10/18/23 09:49 10/18/23 09:49 10/18/23 09:49 10/18/23 09:49 10/18/23 09:49 Oxygen Delivery Method Room Air Physical Exam Narrative Neurovascular status is unchanged. Evidence of full-thickness ulceration to the right lower extremity lateral aspect. Ulceration at the level ankle measures 2.2 x 2.5 x 0.2 cm. Wound is granular nature. No sign of infection. Excisional debridement down to and including subcutaneous tissue with a number 5 mm dermal curette to the right distal/ankle ulceration without incident. Predebridement measurement is 2.0 x 2.3 x 0.1 cm. Postdebridement measurement is 2.2 x 2.5 x 0.2 cm. EpiFix 2 x 2 centimeter was applied to the right distal full-thickness ulceration with 100% use. Seventh application. The graft site was free and clear of any infection. The wound/skin graft substitute was dressed with nonadherent bandage secured in place with Steri-Strips followed by bolster dressing as well as a double layer Tubigrip. Debridement Note Debridement Note Debridement Free Text: Excisional debridement down to and including subcutaneous tissue with a number 5 mm dermal curette to the right distal/ankle ulceration without incident. Predebridement measurement is 2.0 x 2.3 x 0.1 cm. Postdebridement measurement is 2.2 x 2.5 x 0.2 cm. EpiFix 2 x 2 centimeter was applied to the right distal full-thickness ulceration with 100% use. Seventh application. The graft site was free and clear of any infection. The wound/skin graft substitute was dressed with nonadherent bandage secured in place with Steri-Strips followed by bolster dressing as well as a double layer Tubigrip. Post-Debridement Measurements and Additional Note: Post-Debridement Measurements/Treatment WC - Nurse 1 - General Ulcer Assessment Start: 10/11/23 09:55 Freq: Status: Active Protocol: HERMILA.LOWEXT Activity Type Activity Date Activity User E-sign Co-sign Detail Recorded Client Recorded Date Recorded By Document 10/11/23 09:55 DL Desktop 10/11/23 10:02 DL Document 10/18/23 09:49 [facility] Desktop 10/18/23 09:56 [facility] 10/11/23 10/18/23 09:55 09:49 - Today's Visit Information Type of service Follow-up Visit Follow-up Visit (Physician/STACKER ATTENDANT (Physician/STACKER ATTENDANT ) ) Arrival Mode Ambulatory Ambulatory Transfer Assistance None None Patient Identification Verified (Name & Yes Yes ) Patient Requires Transmission-Based No No Precautions Vital Signs Temperature (97.8 F-99.1 F) 98 F 97.9 F Temperature Source Temporal Temporal Pulse Rate (60-100) 66 74 Pulse Location Monitor Monitor Respiratory Rate (12-18) 20 H 16 Respiratory rate source Observation Observation Oxygen Delivery Method Room Air Blood Pressure (90/60-120/80) 128/47 H 124/62 H Blood Pressure Mean (mm Hg) 74 82 Source Monitor Monitor Position Sitting Blood Pressure Location Left Arm History Since Last Visit- (Skip if this is Patient's initial visit) Have you changed medications since your No No last visit? Any new allergies or adverse reactions No No Had a fall/change in ADL's that may No No increase risk of falls Signs or symptoms of abuse and/or No No neglect since last visit Have you been in the hospital since your No No last visit? Has dressing in place as prescribed Yes Yes Has compression in place as prescribed Yes Yes Has offloadiing in place as prescribed N/A N/A Experienced any changes in pain level or No No management Left Footwear Regular Shoe Right Footwear Regular Shoe Pain Scale: 0-10 Numeric Is Patient Pain Free? Yes Yes - Nurse 1 - General Ulcer Measurement Start: 10/11/23 09:55 Freq: Status: Active Protocol: Activity Type Activity Date Activity User E-sign Co-sign Detail Recorded Client Recorded Date Recorded By Document 10/11/23 09:55 Desktop 10/11/23 10:02 DL Document 10/18/23 09:49 [facility] Desktop 10/18/23 09:56 [facility] 10/11/23 10/18/23 09:55 09:49 Wound Center Nurse 1 #3 right lateral ankle -Combined with other wound No -Current Size (cm) - Length 2.1 2.2 -Current Size (cm) - Width 2.8 2.4 -Current Size (cm) - Depth 0.3 0.3 -Total Square Cm 5.88 5.28 -Photo Taken Yes No -Tunneling No -Undermining/Tunneling No -Circular Undermining No -Exudate Amt Medium Medium -Exudate Type Serosanguineous Serosanguineous -Wound Margin Distinct, Distinct, Outline Outline Attached Attached -Granulation Amt Medium (34-66%) Small (1-33%) -Granulation Quality Red Red -Slough/Fibrin Yes -Necrosis Amt Medium (34-66%) Large (67-100%) -Necrotic Tissue Type Adherent Slough Adherent Slough -Structure Exposed N/A -Texture (Elif-wound Skin Appearance) Localized Edema Assessed, ,Scarring Scarring -Moisture (Elif-wound Skin Appearance) No Abnormality Assessed,Dry/ Scaly -Color (Elif-wound Skin Appearance) Hemosiderin Assessed, Staining Hemosiderin Staining -Temperature (Elif-wound Skin No Abnormality No Abnormality Appearance) (Pt Warm) (Pt Warm) -Tenderness on Palpation (Elif-wound Yes Yes Skin Appearance) -Ulcer Cleansing Soap and Water Soap and Water -Foul Odor after Cleansing No No -Anesthetic Used 5% Lidocaine 5% Lidocaine Gel Gel Lower Limb Edema Present Yes Right Calf (cm) 35.4 Point of measurement (cm from the medial 36.5 instep) Right Ankle (cm) 24.7 Point of Measurement (cm from the medial 25 instep) WC - Nurse 2 - General Ulcer CM Notes Start: 10/11/23 09:55 Freq: Status: Active Protocol: Activity Type Activity Date Activity User E-sign Co-sign Detail Recorded Client Recorded Date Recorded By Document 10/11/23 10:14 MW Desktop 10/11/23 10:21 MW Document 10/18/23 10:11 Laptop 10/18/23 10:18 10/11/23 10/18/23 10:14 10:11 Wound Center Nurse 2 #3 right lateral ankle -Time 10:15 10:14 -Correct Patient Yes Yes -Correct Side, Site, Position Yes Yes -Correct Procedure Yes Yes -Procedure Performed Yes Yes -Type of Procedure Debridement Debridement -Clinical Debridement Subcutaneous Subcutaneous -Tissue Removed Subcutaneous Subcutaneous -Post Debridement (cm) - Length 2.0 2.2 -Post Debridement (cm) - Width 2.5 2.5 -Post Debridement (cm) - Depth 0.3 0.2 -Total Square (Post) (cm) 5.00 5.50 -Area of Debridement (cm) - Length 2.0 2.2 -Area of Debridement (cm) - Width 2.5 2.5 -Total Square (Area) (cm) 5.00 5.50 -Tunneling No No -Undermining/Tunneling No No -Circular Undermining No No -Wound/Ulcer Outcome Healed- Not Healed Epithelialized -Ulcer Cleansing Rinsed/ Rinsed/ Irrigated with Irrigated with Saline Saline -Foul Odor after Cleansing No No -Bioengineered Tissue Yes Yes -Type of Bioengineered Tissue Epifix Epifix -Expiration Date 07/05/28 07/05/28 -Product Lot Number [id number] -Percent Used 100 100 -Lot number of Saline Used [id number] -Bleeding Controlled with Pressure Pressure -Treatment Response Procedure Procedure Tolerated Well Tolerated Well -Offloading No No -Debridement - Subq, 1st 20sq cm No No -Apply Skin Sub - 1st 25 sq cm - Legs 1 1 -Epifix (per sq cm) 4 4 Pain Scale: 0-10 Numeric Is Patient Pain Free? Yes Yes WC - Nurse 3 - General Ulcer D/C NN Start: 10/11/23 09:55 Freq: Status: Active Protocol: Activity Type Activity Date Activity User E-sign Co-sign Detail Recorded Client Recorded Date Recorded By Document 10/11/23 10:21 MW Desktop 10/11/23 10:22 MW Document 10/18/23 10:23 KW Desktop 10/18/23 10:24 KW 10/11/23 10/18/23 10:21 10:23 Wound Care Center Nurse 3 #3 right lateral ankle -Ulcer Cleansing Not Cleansed -Negative Pressure Wound Therapy N/A -Primary Dressing Applied Aquacel Extra, Optilok 6.5x10 Mepilex Border -Primary Dressing Covered/Secured with Dry Gauze & Roll Gauze, Secured with Tape -Aquacel Extra 1 -Mepilex Border 1 -Optilok 6.5x10 1 Right -Multi-Layered Wrap Application Multi-Layer Comp - Right ($ ) Treatment Response Procedure Tolerated Well Pain Scale: 0-10 Numeric Is Patient Pain Free? Yes Yes Teaching: Wound Center Dressing Your Wound -Person Taught Patient -Teaching Method Discussion -Response to teaching Verbalize understanding WC - Visit Discharge Discharge Condition Stable Stable Ambulatory Status Ambulatory Ambulatory,Cane Transportation Private Auto Private Auto Accompanied by self Medication Reconcilliation completed & No No provided to patient/care provider Clinical Summary of Care Provided Yes Yes Assessment/Plan Assessment/Plan (1) Non-pressure ulcer of right lower extremity with fat layer exposed: CODE(S): L97.912 - Non-pressure chronic ulcer of unspecified part of right lower leg with fat layer exposed PLAN: Patient was examined and evaluated. All findings were discussed with the patient. All questions were answered to the patient's satisfaction. Excisional debridement down to and including subcutaneous tissue with a number 5 mm dermal curette to the right distal/ankle ulceration without incident. Predebridement measurement is 2.0 x 2.3 x 0.1 cm. Postdebridement measurement is 2.2 x 2.5 x 0.2 cm. EpiFix 2 x 2 centimeter was applied to the right distal full-thickness ulceration with 100% use. Seventh application. The graft site was free and clear of any infection. The wound/skin graft substitute was dressed with nonadherent bandage secured in place with Steri-Strips followed by bolster dressing as well as a 3M compression wrap. Follow-up at the wound care center with Dr. Johnson in 1 week. (2) Venous insufficiency of right lower extremity: CODE(S): I87.2 - Venous insufficiency (chronic) (peripheral) PLAN: Seen by Dr. Galaviz for her right lower leg edema and abnormal venous ultrasounds. Obvious occlusions to her GSV's and she has discoloration to the leg with swelling and pain. Patient has opted to wait till February to have leg fixed
[2023-10-23 08:56] VITALS: BP 121/57; PULSE 64; RESP 20; TEMP 36.8
[2023-10-25 09:43] VITALS: BP 117/53; PULSE 63; RESP 16; TEMP 35.9
--- NOTE | 2023-10-25 11:39 | PCM.WC.PN ---
History of Present Illness Date of Service: 10/25/23 Chief Complaint: Follow-up on her right lower leg lateral area wound nonhealing since at least November. History of Wound: 72-year-old white female in [place] where she is living during the winter. She had a growth removed from her right lateral lower leg. She is still not sure if it is cancer or not. After finally getting through to the dermatology she found that they never sent a biopsy off. She saw her own doctor up here and she was referred to us from her and put on cephalexin. Recently she was taken off her Lasix and has terrible edema of her lower extremities and abdomen. Patient states she has gained 9 pounds Patient had been referred to dermatology and has returned after they did Mohs surgery on her right lateral lower leg. They state they got all the cancer out. We will reapply for EpiFix to restart her. We will also also refer to Dr. Galaviz for vascular problems she is having in her right lower leg. Her biggest complaint is that she is swelling a lot in her lower extremities. Worried about a blood clot Now she has breast cancer and is being seen by oncology at [facility] for that. She has left total mastectomy on 06/12/2023. She states she is healing well from that. Progress of Wound: Patient was seen by another provider last week and she had a 3M wrap put on her right leg. The measurements for her right lateral lower leg were better looking flatter still gives her a lot of pain and she started swelling above the 3M wrap poorly. She is to scheduled with Dr. Galaviz tomorrow for her procedure to open up the 3 clogged venous veins. Subjective Subjective Patient is agreeable to plan we will continue with the EpiFix Objective Data Objective Data No sign of infection debrided well looks good no sign of infection and the wound itself will continue with the EpiFix #4. Since he is anxious to get the procedure done and I told her that will really help with healing Vital Signs: Vital Signs Temp Pulse Resp BP O2 Del Method 96.6 F L 63 16 117/53 L Room Air 10/25/23 09:43 10/25/23 09:43 10/25/23 09:43 10/25/23 09:43 10/25/23 09:43 Oxygen Delivery Method Room Air Physical Exam Const oriented x3 General Appearance: cooperative Exam Limitations: no limitations HEENT normocephalic Head and Scalp: normal to inspection Face and Sinus: normal facial exam Nose: external nose normal General Ear: hearing grossly impaired External Ear: external ears normal Mouth: oral and palatal mucosa normal Eyes PERRL General Eye: normal appearance of both eyes Neck full ROM General: normal visual inspection Resp normal respiratory effort Effort and Inspection: able to speak in complete sentences Auscultation: clear to auscultation bilaterally Cardio regular rate and regular rhythm Palpation: normal PMI Rate: regular rate Rhythm: regular rhythm GI Auscultation: normoactive bowel sounds Palpation: soft and no hepatosplenomegaly external exam normal Back/Spine Cervical Spine: cervical ROM normal Thoracic Spine / Upper Back: normal to inspection Lumbar Spine / Lower Back: normal to inspection Extremity normal to inspection General Extremity: normal exam except as noted Skin no rashes or lesions noted Neuro oriented x3 Psych Appearance: grossly normal Speech: normal speech Thought Content: normal thought content Judgement: judgement good Debridement Note Debridement Note Wound debrided: Right francis Laterality: Right Type of Debridement: Selective debridement Depth: Down to and including healthy tissue Percentage of wound debrided: 100 Instrument Used: 5mm curette Tissue Removed: Fibrin Severity: Limited To Skin Breakdown Amount of bleeding with debridement: Mild Bleeding Controlled with: Compression and gauze Patient tolerated procedure: Patient tolerated procedure well No debridement was completed: No debridement was completed today Post-Debridement Measurements and Additional Note: Post-Debridement Measurements/Treatment - Nurse 1 - General Ulcer Assessment Start: 10/11/23 09:55 Freq: Status: Active Protocol: [email or web address].[email or web address] Activity Type Activity Date Activity User E-sign Co-sign Detail Recorded Client Recorded Date Recorded By Document 10/11/23 09:55 DL Desktop 10/11/23 10:02 DL Document 10/18/23 09:49 [facility] Desktop 10/18/23 09:56 F Document 10/23/23 08:56 DL Desktop 10/23/23 09:08 DL Document 10/25/23 09:43 [facility] Desktop 10/25/23 09:52 BMF 10/11/23 10/18/23 10/23/23 09:55 09:49 08:56 - Today's Visit Information Type of service Follow-up Visit Follow-up Visit Nurse-only (Physician/SOFTWARE DEVELOPMENT SPECIALIST (Physician/SOFTWARE DEVELOPMENT SPECIALIST Visit ) ) Arrival Mode Ambulatory Ambulatory Ambulatory,Cane Transfer Assistance None None None Patient Identification Verified (Name & Yes Yes ) Patient Requires Transmission-Based No No Precautions Vital Signs Temperature (97.8 F-99.1 F) 98 F 97.9 F 98.2 F Temperature Source Temporal Temporal Temporal Pulse Rate (60-100) 66 74 64 Pulse Location Monitor Monitor Monitor Respiratory Rate (12-18) 20 H 16 20 H Respiratory rate source Observation Observation Observation Oxygen Delivery Method Room Air Blood Pressure (90/60-120/80) 128/47 H 124/62 H 121/57 H Blood Pressure Mean (mm Hg) 74 82 78 Source Monitor Monitor Monitor Position Sitting Blood Pressure Location Left Arm History Since Last Visit- (Skip if this is Patient's initial visit) Have you changed medications since your No No No last visit? Any new allergies or adverse reactions No No No Had a fall/change in ADL's that may No No No increase risk of falls Signs or symptoms of abuse and/or No No No neglect since last visit Have you been in the hospital since your No No No last visit? Has dressing in place as prescribed Yes Yes Yes Has compression in place as prescribed Yes Yes Yes Has offloadiing in place as prescribed N/A N/A N/A Experienced any changes in pain level or No No No management Left Footwear Regular Shoe Right Footwear Regular Shoe Pain Scale: 0-10 Numeric Is Patient Pain Free? Yes Yes Yes 10/25/23 09:43 WC - Today's Visit Information Type of service Follow-up Visit (Physician/SOFTWARE DEVELOPMENT SPECIALIST ) Arrival Mode Ambulatory,Cane Transfer Assistance None Patient Identification Verified (Name & Yes ) Patient Requires Transmission-Based No Precautions Vital Signs Temperature (97.8 F-99.1 F) 96.6 F L Temperature Source Temporal Pulse Rate (60-100) 63 Pulse Location Monitor Respiratory Rate (12-18) 16 Respiratory rate source Observation Oxygen Delivery Method Room Air Blood Pressure (90/60-120/80) 117/53 L Blood Pressure Mean (mm Hg) 74 Source Monitor Position Sitting Blood Pressure Location Right Arm History Since Last Visit- (Skip if this is Patient's initial visit) Have you changed medications since your No last visit? Any new allergies or adverse reactions No Had a fall/change in ADL's that may No increase risk of falls Signs or symptoms of abuse and/or No neglect since last visit Have you been in the hospital since your No last visit? Has dressing in place as prescribed Yes Has compression in place as prescribed Yes Has offloadiing in place as prescribed N/A Experienced any changes in pain level or No management Left Footwear Regular Shoe Right Footwear Regular Shoe Pain Scale: 0-10 Numeric Is Patient Pain Free? Yes WC - Nurse 1 - General Ulcer Measurement Start: 10/11/23 09:55 Freq: Status: Active Protocol: Activity Type Activity Date Activity User E-sign Co-sign Detail Recorded Client Recorded Date Recorded By Document 10/11/23 09:55 DL Desktop 10/11/23 10:02 DL Document 10/18/23 09:49 [facility] Desktop 10/18/23 09:56 BMF Document 10/23/23 08:56 DL Desktop 10/23/23 09:08 DL Document 10/25/23 09:43 BM[facility] Desktop 10/25/23 09:52 BMF 10/11/23 10/18/23 10/23/23 09:55 09:49 08:56 Wound Center Nurse 1 #3 right lateral ankle -Combined with other wound No -Current Size (cm) - Length 2.1 2.2 -Current Size (cm) - Width 2.8 2.4 -Current Size (cm) - Depth 0.3 0.3 -Total Square Cm 5.88 5.28 -Date of Last Picture (Recall this field) -Photo Taken Yes No -Epithelialization -Tunneling No -Undermining/Tunneling No -Circular Undermining No -Exudate Amt Medium Medium Small -Exudate Type Serosanguineous Serosanguineous Serosanguineous -Wound Margin Distinct, Distinct, Distinct, Outline Outline Outline Attached Attached Attached -Granulation Amt Medium (34-66%) Small (1-33%) -Granulation Quality Red Red -Slough/Fibrin Yes -Necrosis Amt Medium (34-66%) Large (67-100%) -Necrotic Tissue Type Adherent Slough Adherent Slough -Structure Exposed N/A -Texture (Elif-wound Skin Appearance) Localized Edema Assessed, Scarring ,Scarring Scarring -Moisture (Elif-wound Skin Appearance) No Abnormality Assessed,Dry/ Dry/Scaly Scaly -Color (Elif-wound Skin Appearance) Hemosiderin Assessed, Erythema Staining Hemosiderin Staining -Temperature (Elif-wound Skin No Abnormality No Abnormality No Abnormality Appearance) (Pt Warm) (Pt Warm) (Pt Warm) -Tenderness on Palpation (Elif-wound Yes Yes No Skin Appearance) -Ulcer Cleansing Soap and Water Soap and Water Soap and Water -Foul Odor after Cleansing No No No -Anesthetic Used 5% Lidocaine 5% Lidocaine Gel Gel -Wound Comment(s) Epifix intact today. 3M reapplied. Lower Limb Edema Present Yes Right Calf (cm) 35.4 32 Point of measurement (cm from the medial 36.5 instep) Right Ankle (cm) 24.7 24.5 Point of Measurement (cm from the medial 25 instep) 10/25/23 09:43 Wound Center Nurse 1 #3 right lateral ankle -Combined with other wound No -Current Size (cm) - Length 2 -Current Size (cm) - Width 1.5 -Current Size (cm) - Depth 0.2 -Total Square Cm 3.0 -Date of Last Picture (Recall this 10/25/23 field) -Photo Taken Yes -Epithelialization Small 1-33% -Tunneling No -Undermining/Tunneling No -Circular Undermining No -Exudate Amt Medium -Exudate Type Serosanguineous -Wound Margin Distinct, Outline Attached -Granulation Amt Medium (34-66%) -Granulation Quality Red -Slough/Fibrin Yes -Necrosis Amt Medium (34-66%) -Necrotic Tissue Type Adherent Slough -Structure Exposed -Texture (Elif-wound Skin Appearance) Assessed, Scarring -Moisture (Elif-wound Skin Appearance) Assessed,Dry/ Scaly -Color (Elif-wound Skin Appearance) Assessed, Hemosiderin Staining -Temperature (Elif-wound Skin No Abnormality Appearance) (Pt Warm) -Tenderness on Palpation (Elif-wound Yes Skin Appearance) -Ulcer Cleansing Soap and Water -Foul Odor after Cleansing No -Anesthetic Used 5% Lidocaine Gel -Wound Comment(s) Lower Limb Edema Present Yes Right Calf (cm) 32 Point of measurement (cm from the medial instep) Right Ankle (cm) 23 Point of Measurement (cm from the medial instep) WC - Nurse 2 - General Ulcer CM Notes Start: 10/11/23 09:55 Freq: Status: Active Protocol: Activity Type Activity Date Activity User E-sign Co-sign Detail Recorded Client Recorded Date Recorded By Document 10/11/23 10:14 MW Desktop 10/11/23 10:21 MW Document 10/18/23 10:11 JF Laptop 10/18/23 10:18 JF Document 10/25/23 10:00 MW Desktop 10/25/23 10:06 MW 10/11/23 10/18/23 10/25/23 10:14 10:11 10:00 Wound Center Nurse 2 #3 right lateral ankle -Time 10:15 10:14 10:00 -Correct Patient Yes Yes Yes -Correct Side, Site, Position Yes Yes Yes -Correct Procedure Yes Yes Yes -Procedure Performed Yes Yes Yes -Type of Procedure Debridement Debridement Debridement -Clinical Debridement Subcutaneous Subcutaneous Subcutaneous -Tissue Removed Subcutaneous Subcutaneous Subcutaneous -Post Debridement (cm) - Length 2.0 2.2 2.0 -Post Debridement (cm) - Width 2.5 2.5 1.8 -Post Debridement (cm) - Depth 0.3 0.2 0.2 -Total Square (Post) (cm) 5.00 5.50 3.60 -Area of Debridement (cm) - Length 2.0 2.2 2.0 -Area of Debridement (cm) - Width 2.5 2.5 1.8 -Total Square (Area) (cm) 5.00 5.50 3.60 -Tunneling No No No -Undermining/Tunneling No No No -Circular Undermining No No No -Wound/Ulcer Outcome Healed- Not Healed Not Healed Epithelialized -Ulcer Cleansing Rinsed/ Rinsed/ Rinsed/ Irrigated with Irrigated with Irrigated with Saline Saline Saline -Foul Odor after Cleansing No No No -Bioengineered Tissue Yes Yes Yes -Type of Bioengineered Tissue Epifix Epifix Epifix -Expiration Date 07/05/28 07/05/28 09/14/27 -Product Lot Number [id number] -Percent Used 100 100 100 -Lot number of Saline Used [id number] -Bleeding Controlled with Pressure Pressure Pressure -Treatment Response Procedure Procedure Procedure Tolerated Well Tolerated Well Tolerated Well -Offloading No No No -Debridement - Subq, 1st 20sq cm No No No -Apply Skin Sub - 1st 25 sq cm - Legs 1 1 1 -Epifix (per sq cm) 4 4 4 Pain Scale: 0-10 Numeric Is Patient Pain Free? Yes Yes Yes WC - Nurse 3 - General Ulcer D/C NN Start: 10/11/23 09:55 Freq: Status: Active Protocol: Activity Type Activity Date Activity User E-sign Co-sign Detail Recorded Client Recorded Date Recorded By Document 10/11/23 10:21 MW Desktop 10/11/23 10:22 MW Document 10/18/23 10:23 KW Desktop 10/18/23 10:24 KW Document 10/23/23 08:56 DL Desktop 10/23/23 09:08 DL Document 10/25/23 10:07 MW Desktop 10/25/23 10:08 MW 10/11/23 10/18/23 10/23/23 10:21 10:23 08:56 Wound Care Center Nurse 3 #3 right lateral ankle -Ulcer Cleansing Not Cleansed Soap and Water -Foul Odor after Cleansing No -Negative Pressure Wound Therapy N/A -Primary Dressing Applied Aquacel Extra, Optilok 6.5x10 Aquacel Extra Mepilex Border -Primary Dressing Covered/Secured with Dry Gauze & Dry Gauze & Roll Gauze, Roll Gauze, Secured with Secured with Tape Tape -Other Covering ABD -Aquacel Extra 1 1 -Mepilex Border 1 -Optilok 6.5x10 1 Right -Lotion applied to leg before compression wrap -Multi-Layered Wrap Application Multi-Layer Multi-Layer Comp - Right ($ Comp - Right ($ ) ) -Stockings Treatment Response Procedure Procedure Tolerated Well Tolerated Well Vital Signs Temperature (97.8 F-99.1 F) 98.2 F Temperature Source Temporal Pulse Rate (60-100) 64 Pulse Location Monitor Respiratory Rate (12-18) 20 H Respiratory rate source Observation Blood Pressure (90/60-120/80) 121/57 H Blood Pressure Mean (mm Hg) 78 Source Monitor Pain Scale: 0-10 Numeric Is Patient Pain Free? Yes Yes Yes Teaching: Wound Center Dressing Your Wound -Person Taught Patient -Teaching Method Discussion -Response to teaching Verbalize understanding WC - Visit Discharge Discharge Condition Stable Stable Stable Ambulatory Status Ambulatory Ambulatory,Cane Ambulatory,Cane Transportation Private Auto Private Auto Private Auto Accompanied by self Medication Reconcilliation completed & No No provided to patient/care provider Clinical Summary of Care Provided Yes Yes Notes: Epifix intact. 3M reapplied today per Bethel Chin LPN. 10/25/23 10:07 Wound Care Center Nurse 3 #3 right lateral ankle -Ulcer Cleansing Not Cleansed -Foul Odor after Cleansing -Negative Pressure Wound Therapy -Primary Dressing Applied Mepilex Border -Primary Dressing Covered/Secured with -Other Covering -Aquacel Extra -Mepilex Border 1 -Optilok 6.5x10 Right -Lotion applied to leg before No compression wrap -Multi-Layered Wrap Application -Stockings Yes Treatment Response Procedure Tolerated Well Vital Signs Temperature (97.8 F-99.1 F) Temperature Source Pulse Rate (60-100) Pulse Location Respiratory Rate (12-18) Respiratory rate source Blood Pressure (90/60-120/80) Blood Pressure Mean (mm Hg) Source Pain Scale: 0-10 Numeric Is Patient Pain Free? Yes Teaching: Wound Center Dressing Your Wound -Person Taught Patient -Teaching Method Discussion, Demonstration -Response to teaching Verbalize understanding WC - Visit Discharge Discharge Condition Stable Ambulatory Status Ambulatory Transportation Private Auto Accompanied by self Medication Reconcilliation completed & No provided to patient/care provider Clinical Summary of Care Provided Yes Notes: Additional Wound Wound debrided: Right ankle venous ulcer Laterality: Right Type of Debridement: Excisional debridement Anesthesia Used: 5% Lidocaine Gel Depth: in the subcutaneous layer Percentage of wound debrided: 100 Instrument Used: 3mm curette Tissue Removed: Fibrin Severity: Fat Layer Exposed Amount of bleeding with debridement: Mild Bleeding Controlled with: Compression and gauze Patient tolerated procedure: Patient tolerated procedure well Assessment/Plan Assessment/Plan (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: CODE(S): C44.721 - Squamous cell carcinoma of skin of unspecified lower limb, including hip QUALIFIERS: Laterality: right Qualified Code(s): C44.722 - Squamous cell carcinoma of skin of right lower limb, including hip PLAN: Wound resolved (2) Venous ulcer of ankle: CODE(S): I83.003 - Varicose veins of unspecified lower extremity with ulcer of ankle; L97.309 - Non-pressure chronic ulcer of unspecified ankle with unspecified severity QUALIFIERS: Varicose vein presence: with varicose veins Laterality: right Non-pressure ulcer stage: limited to breakdown of skin Qualified Code(s): I83.013 - Varicose veins of right lower extremity with ulcer of ankle; L97.311 - Non-pressure chronic ulcer of right ankle limited to breakdown of skin PLAN: Procedure by Dr. Galaviz for her right lower leg edema and abnormal venous ultrasounds to be done tomorrow. Obvious occlusions to her GSV's and she has discoloration to the leg with swelling and pain. (3) Non-pressure ulcer of right lower extremity: CODE(S): L97.919 - Non-pressure chronic ulcer of unspecified part of right lower leg with unspecified severity QUALIFIERS: Non-pressure ulcer stage: with fat layer exposed Qualified Code(s): L97.912 - Non-pressure chronic ulcer of unspecified part of right lower leg with fat layer exposed PLAN: EpiFix #4 applied wound veil over top and Steri-Strips then Aquacel extra and a dry dressing Follow-up in 1 week (4) Nonhealing nonsurgical wound: CODE(S): T14.8XXA - Other injury of unspecified body region, initial encounter
[2023-11-01 08:51] VITALS: BP 120/51; PULSE 69; RESP 16; TEMP 36.5
--- NOTE | 2023-11-01 11:53 | PCM.WC.PN ---
History of Present Illness Date of Service: 11/01/23 Chief Complaint: Follow-up on her right lower leg lateral area wound nonhealing since at least November. History of Wound: 72-year-old white female in [place] where she is living during the winter. She had a growth removed from her right lateral lower leg. She is still not sure if it is cancer or not. After finally getting through to the dermatology she found that they never sent a biopsy off. She saw her own doctor up here and she was referred to us from her and put on cephalexin. Recently she was taken off her Lasix and has terrible edema of her lower extremities and abdomen. Patient states she has gained 9 pounds Patient had been referred to dermatology and has returned after they did Mohs surgery on her right lateral lower leg. They state they got all the cancer out. We will reapply for EpiFix to restart her. We will also also refer to Dr. Galaviz for vascular problems she is having in her right lower leg. Her biggest complaint is that she is swelling a lot in her lower extremities. Worried about a blood clot Now she has breast cancer and is being seen by oncology at [facility] for that. She has left total mastectomy on 06/12/2023. She states she is healing well from that. Progress of Wound: Patient was seen by Dr. Galaviz last week and had another procedure on her right lower leg. Patient states she is not feeling different in the right leg is still very swollen. We reassured her that the swelling will get better it takes a while for the procedure to help with the swelling in the wound healing. Measurements for her right lateral lower leg were better looking flatter still gives her a lot of pain and still has swelling . Will continue with the EpiFix she is on #5 today and she will finish up next week. Subjective Subjective Patient is agreeable to plan Objective Data Objective Data Swelling in the right lower leg with some erythematous to the whole leg. Wound looks about the same flat not much smaller than was last week. Will continue using the EpiFix to finish the wound off. Patient is to continue wearing her compressions Vital Signs: Vital Signs Temp Pulse Resp BP O2 Del Method 97.7 F L 69 16 120/51 L Room Air 11/01/23 08:51 11/01/23 08:51 11/01/23 08:51 11/01/23 08:51 11/01/23 08:51 Oxygen Delivery Method Room Air Lab / Micro Data Attestation: I reviewed the patient's lab results. Physical Exam Const oriented x3 General Appearance: cooperative Exam Limitations: no limitations HEENT normocephalic Head and Scalp: normal to inspection Face and Sinus: normal facial exam Nose: external nose normal General Ear: hearing grossly impaired External Ear: external ears normal Mouth: oral and palatal mucosa normal Eyes PERRL General Eye: normal appearance of both eyes Neck full ROM General: normal visual inspection Resp normal respiratory effort Effort and Inspection: able to speak in complete sentences Auscultation: clear to auscultation bilaterally Cardio regular rate and regular rhythm Palpation: normal PMI Rate: regular rate Rhythm: regular rhythm GI Auscultation: normoactive bowel sounds Palpation: soft and no hepatosplenomegaly external exam normal Back/Spine Cervical Spine: cervical ROM normal Thoracic Spine / Upper Back: normal to inspection Lumbar Spine / Lower Back: normal to inspection Extremity normal to inspection General Extremity: normal exam except as noted Skin no rashes or lesions noted Neuro oriented x3 Psych Appearance: grossly normal Speech: normal speech Thought Content: normal thought content Judgement: judgement good Debridement Note Debridement Note Wound debrided: Right lateral ankle venous ulcer Type of Debridement: Excisional debridement Anesthesia Used: 5% Lidocaine Gel and Cetacaine Depth: Down to and including healthy tissue and in the subcutaneous layer Percentage of wound debrided: 100 Instrument Used: 5mm curette Tissue Removed: Fibrin and some slough Severity: Fat Layer Exposed Amount of bleeding with debridement: Mild Bleeding Controlled with: Compression and gauze Patient tolerated procedure: Patient tolerated procedure well Post-Debridement Measurements and Additional Note: Post-Debridement Measurements/Treatment - Nurse 1 - General Ulcer Assessment Start: 10/11/23 09:55 Freq: Status: Active Protocol: SAHIL Activity Type Activity Date Activity User E-sign Co-sign Detail Recorded Client Recorded Date Recorded By Document 10/11/23 09:55 DL Desktop 10/11/23 10:02 DL Document 10/18/23 09:49 BMF Desktop 10/18/23 09:56 BMF Document 10/23/23 08:56 DL Desktop 10/23/23 09:08 DL Document 10/25/23 09:43 BMF Desktop 10/25/23 09:52 BMF Document 11/01/23 08:51 [facility] Desktop 11/01/23 08:56 BMF 10/11/23 10/18/23 10/23/23 09:55 09:49 08:56 [facility] Today's Visit Information Type of service Follow-up Visit Follow-up Visit Nurse-only (Physician/RECREATIONAL RESORT MANAGER (Physician/RECREATIONAL RESORT MANAGER Visit ) ) Arrival Mode Ambulatory Ambulatory Ambulatory,Cane Transfer Assistance None None None Patient Identification Verified (Name & Yes Yes ) Patient Requires Transmission-Based No No Precautions Vital Signs Temperature (97.8 F-99.1 F) 98 F 97.9 F 98.2 F Temperature Source Temporal Temporal Temporal Pulse Rate (60-100) 66 74 64 Pulse Location Monitor Monitor Monitor Respiratory Rate (12-18) 20 H 16 20 H Respiratory rate source Observation Observation Observation Oxygen Delivery Method Room Air Blood Pressure (90/60-120/80) 128/47 H 124/62 H 121/57 H Blood Pressure Mean (mm Hg) 74 82 78 Source Monitor Monitor Monitor Position Sitting Blood Pressure Location Left Arm History Since Last Visit- (Skip if this is Patient's initial visit) Have you changed medications since your No No No last visit? Any new allergies or adverse reactions No No No Had a fall/change in ADL's that may No No No increase risk of falls Signs or symptoms of abuse and/or No No No neglect since last visit Have you been in the hospital since your No No No last visit? Has dressing in place as prescribed Yes Yes Yes Has compression in place as prescribed Yes Yes Yes Has offloadiing in place as prescribed N/A N/A N/A Experienced any changes in pain level or No No No management Left Footwear Regular Shoe Right Footwear Regular Shoe Pain Scale: 0-10 Numeric Is Patient Pain Free? Yes Yes Yes 10/25/23 11/01/23 09:43 08:51 - Today's Visit Information Type of service Follow-up Visit Follow-up Visit (Physician/RECREATIONAL RESORT MANAGER (Physician/RECREATIONAL RESORT MANAGER ) ) Arrival Mode Ambulatory,Cane Ambulatory,Cane Transfer Assistance None None Patient Identification Verified (Name & Yes Yes ) Patient Requires Transmission-Based No No Precautions Vital Signs Temperature (97.8 F-99.1 F) 96.6 F L 97.7 F L Temperature Source Temporal Temporal Pulse Rate (60-100) 63 69 Pulse Location Monitor Monitor Respiratory Rate (12-18) 16 16 Respiratory rate source Observation Observation Oxygen Delivery Method Room Air Room Air Blood Pressure (90/60-120/80) 117/53 L 120/51 L Blood Pressure Mean (mm Hg) 74 74 Source Monitor Monitor Position Sitting Sitting Blood Pressure Location Right Arm History Since Last Visit- (Skip if this is Patient's initial visit) Have you changed medications since your No No last visit? Any new allergies or adverse reactions No No Had a fall/change in ADL's that may No No increase risk of falls Signs or symptoms of abuse and/or No No neglect since last visit Have you been in the hospital since your No No last visit? Has dressing in place as prescribed Yes Yes Has compression in place as prescribed Yes Yes Has offloadiing in place as prescribed N/A N/A Experienced any changes in pain level or No No management Left Footwear Regular Shoe Regular Shoe Right Footwear Regular Shoe Regular Shoe Pain Scale: 0-10 Numeric Is Patient Pain Free? Yes Yes WC - Nurse 1 - General Ulcer Measurement Start: 10/11/23 09:55 Freq: Status: Active Protocol: Activity Type Activity Date Activity User E-sign Co-sign Detail Recorded Client Recorded Date Recorded By Document 10/11/23 09:55 DL Desktop 10/11/23 10:02 DL Document 10/18/23 09:49 BMF Desktop 10/18/23 09:56 BMF Document 10/23/23 08:56 DL Desktop 10/23/23 09:08 DL Document 10/25/23 09:43 BMF Desktop 10/25/23 09:52 BMF Document 11/01/23 08:51 BMF Desktop 11/01/23 08:56 BMF 10/11/23 10/18/23 10/23/23 09:55 09:49 08:56 Wound Center Nurse 1 #3 right lateral ankle -Combined with other wound No -Current Size (cm) - Length 2.1 2.2 -Current Size (cm) - Width 2.8 2.4 -Current Size (cm) - Depth 0.3 0.3 -Total Square Cm 5.88 5.28 -Date of Last Picture (Recall this field) -Photo Taken Yes No -Epithelialization -Tunneling No -Undermining/Tunneling No -Circular Undermining No -Exudate Amt Medium Medium Small -Exudate Type Serosanguineous Serosanguineous Serosanguineous -Wound Margin Distinct, Distinct, Distinct, Outline Outline Outline Attached Attached Attached -Granulation Amt Medium (34-66%) Small (1-33%) -Granulation Quality Red Red -Slough/Fibrin Yes -Necrosis Amt Medium (34-66%) Large (67-100%) -Necrotic Tissue Type Adherent Slough Adherent Slough -Structure Exposed N/A -Texture (Elif-wound Skin Appearance) Localized Edema Assessed, Scarring ,Scarring Scarring -Moisture (Elif-wound Skin Appearance) No Abnormality Assessed,Dry/ Dry/Scaly Scaly -Color (Elif-wound Skin Appearance) Hemosiderin Assessed, Erythema Staining Hemosiderin Staining -Temperature (Elif-wound Skin No Abnormality No Abnormality No Abnormality Appearance) (Pt Warm) (Pt Warm) (Pt Warm) -Tenderness on Palpation (Elif-wound Yes Yes No Skin Appearance) -Ulcer Cleansing Soap and Water Soap and Water Soap and Water -Foul Odor after Cleansing No No No -Anesthetic Used 5% Lidocaine 5% Lidocaine Gel Gel -Wound Comment(s) Epifix intact today. 3M reapplied. Lower Limb Edema Present Yes Right Calf (cm) 35.4 32 Point of measurement (cm from the medial 36.5 instep) Right Ankle (cm) 24.7 24.5 Point of Measurement (cm from the medial 25 instep) 10/25/23 11/01/23 09:43 08:51 Wound Center Nurse 1 #3 right lateral ankle -Combined with other wound No -Current Size (cm) - Length 2 2.4 -Current Size (cm) - Width 1.5 2.8 -Current Size (cm) - Depth 0.2 0.3 -Total Square Cm 3.0 6.72 -Date of Last Picture (Recall this 10/25/23 field) -Photo Taken Yes Yes -Epithelialization Small 1-33% -Tunneling No -Undermining/Tunneling No -Circular Undermining No -Exudate Amt Medium Medium -Exudate Type Serosanguineous Serosanguineous -Wound Margin Distinct, Distinct, Outline Outline Attached Attached -Granulation Amt Medium (34-66%) Medium (34-66%) -Granulation Quality Red Red -Slough/Fibrin Yes -Necrosis Amt Medium (34-66%) Medium (34-66%) -Necrotic Tissue Type Adherent Slough Adherent Slough -Structure Exposed N/A -Texture (Elif-wound Skin Appearance) Assessed, Localized Edema Scarring ,Scarring -Moisture (Elif-wound Skin Appearance) Assessed,Dry/ No Abnormality Scaly -Color (Elif-wound Skin Appearance) Assessed, Hemosiderin Hemosiderin Staining Staining -Temperature (Elif-wound Skin No Abnormality No Abnormality Appearance) (Pt Warm) (Pt Warm) -Tenderness on Palpation (Elif-wound Yes Yes Skin Appearance) -Ulcer Cleansing Soap and Water Soap and Water -Foul Odor after Cleansing No No -Anesthetic Used 5% Lidocaine 5% Lidocaine Gel Gel -Wound Comment(s) Lower Limb Edema Present Yes Right Calf (cm) 32 39 Point of measurement (cm from the medial instep) Right Ankle (cm) 23 25 Point of Measurement (cm from the medial instep) WC - Nurse 2 - General Ulcer CM Notes Start: 10/11/23 09:55 Freq: Status: Active Protocol: Activity Type Activity Date Activity User E-sign Co-sign Detail Recorded Client Recorded Date Recorded By Document 10/11/23 10:14 MW Desktop 10/11/23 10:21 MW Document 10/18/23 10:11 [email or web address] Laptop 10/18/23 10:18 Document 10/25/23 10:00 MW Desktop 10/25/23 10:06 MW Document 11/01/23 09:03 MW Desktop 11/01/23 09:11 MW 10/11/23 10/18/23 10/25/23 10:14 10:11 10:00 Wound Center Nurse 2 #3 right lateral ankle -Time 10:15 10:14 10:00 -Correct Patient Yes Yes Yes -Correct Side, Site, Position Yes Yes Yes -Correct Procedure Yes Yes Yes -Procedure Performed Yes Yes Yes -Type of Procedure Debridement Debridement Debridement -Clinical Debridement Subcutaneous Subcutaneous Subcutaneous -Tissue Removed Subcutaneous Subcutaneous Subcutaneous -Post Debridement (cm) - Length 2.0 2.2 2.0 -Post Debridement (cm) - Width 2.5 2.5 1.8 -Post Debridement (cm) - Depth 0.3 0.2 0.2 -Total Square (Post) (cm) 5.00 5.50 3.60 -Area of Debridement (cm) - Length 2.0 2.2 2.0 -Area of Debridement (cm) - Width 2.5 2.5 1.8 -Total Square (Area) (cm) 5.00 5.50 3.60 -Tunneling No No No -Undermining/Tunneling No No No -Circular Undermining No No No -Wound/Ulcer Outcome Healed- Not Healed Not Healed Epithelialized -Ulcer Cleansing Rinsed/ Rinsed/ Rinsed/ Irrigated with Irrigated with Irrigated with Saline Saline Saline -Foul Odor after Cleansing No No No -Bioengineered Tissue Yes Yes Yes -Type of Bioengineered Tissue Epifix Epifix Epifix -Expiration Date 07/05/28 07/05/28 09/14/27 -Product Lot Number [id number] -Percent Used 100 100 100 -Lot number of Saline Used [id number] -Bleeding Controlled with Pressure Pressure Pressure -Treatment Response Procedure Procedure Procedure Tolerated Well Tolerated Well Tolerated Well -Offloading No No No -Debridement - Subq, 1st 20sq cm No No No -Apply Skin Sub - 1st 25 sq cm - Legs 1 1 1 -Epifix (per sq cm) 4 4 4 Pain Scale: 0-10 Numeric Is Patient Pain Free? Yes Yes Yes 11/01/23 09:03 Wound Center Nurse 2 #3 right lateral ankle -Time 09:03 -Correct Patient Yes -Correct Side, Site, Position Yes -Correct Procedure Yes -Procedure Performed Yes -Type of Procedure Debridement -Clinical Debridement Subcutaneous -Tissue Removed Subcutaneous -Post Debridement (cm) - Length 2.0 -Post Debridement (cm) - Width 2.5 -Post Debridement (cm) - Depth 0.2 -Total Square (Post) (cm) 5.00 -Area of Debridement (cm) - Length 2.0 -Area of Debridement (cm) - Width 2.5 -Total Square (Area) (cm) 5.00 -Tunneling No -Undermining/Tunneling No -Circular Undermining No -Wound/Ulcer Outcome Not Healed -Ulcer Cleansing Rinsed/ Irrigated with Saline -Foul Odor after Cleansing No -Bioengineered Tissue Yes -Type of Bioengineered Tissue Epifix -Expiration Date 07/05/28 -Product Lot Number [id number] -Percent Used 100 -Lot number of Saline Used [id number] -Bleeding Controlled with Pressure -Treatment Response Procedure Tolerated Well -Offloading No -Debridement - Subq, 1st 20sq cm No -Apply Skin Sub - 1st 25 sq cm - Legs 1 -Epifix (per sq cm) 4 Pain Scale: 0-10 Numeric Is Patient Pain Free? Yes WC - Nurse 3 - General Ulcer D/C NN Start: 10/11/23 09:55 Freq: Status: Active Protocol: Activity Type Activity Date Activity User E-sign Co-sign Detail Recorded Client Recorded Date Recorded By Document 10/11/23 10:21 MW Desktop 10/11/23 10:22 MW Document 10/18/23 10:23 KW Desktop 10/18/23 10:24 KW Document 10/23/23 08:56 DL Desktop 10/23/23 09:08 DL Document 10/25/23 10:07 MW Desktop 10/25/23 10:08 MW Document 11/01/23 09:15 MW Desktop 11/01/23 09:16 MW 10/11/23 10/18/23 10/23/23 10:21 10:23 08:56 Wound Care Center Nurse 3 #3 right lateral ankle -Ulcer Cleansing Not Cleansed Soap and Water -Foul Odor after Cleansing No -Negative Pressure Wound Therapy N/A -Primary Dressing Applied Aquacel Extra, Optilok 6.5x10 Aquacel Extra Mepilex Border -Primary Dressing Covered/Secured with Dry Gauze & Dry Gauze & Roll Gauze, Roll Gauze, Secured with Secured with Tape Tape -Other Covering ABD -Aquacel Extra 1 1 -Mepilex Border 1 -Optilok 6.5x10 1 Right -Lotion applied to leg before compression wrap -Multi-Layered Wrap Application Multi-Layer Multi-Layer Comp - Right ($ Comp - Right ($ ) ) -Stockings Treatment Response Procedure Procedure Tolerated Well Tolerated Well Vital Signs Temperature (97.8 F-99.1 F) 98.2 F Temperature Source Temporal Pulse Rate (60-100) 64 Pulse Location Monitor Respiratory Rate (12-18) 20 H Respiratory rate source Observation Blood Pressure (90/60-120/80) 121/57 H Blood Pressure Mean (mm Hg) 78 Source Monitor Pain Scale: 0-10 Numeric Is Patient Pain Free? Yes Yes Yes Teaching: Wound Center Dressing Your Wound -Person Taught Patient -Teaching Method Discussion -Response to teaching Verbalize understanding WC - Visit Discharge Discharge Condition Stable Stable Stable Ambulatory Status Ambulatory Ambulatory,Cane Ambulatory,Cane Transportation Private Auto Private Auto Private Auto Accompanied by self Medication Reconcilliation completed & No No provided to patient/care provider Clinical Summary of Care Provided Yes Yes Notes: Epifix intact. 3M reapplied today per eBthel Chin LPN. 10/25/23 11/01/23 10:07 09:15 Wound Care Center Nurse 3 #3 right lateral ankle -Ulcer Cleansing Not Cleansed Not Cleansed -Foul Odor after Cleansing No -Negative Pressure Wound Therapy N/A -Primary Dressing Applied Mepilex Border Aquacel Extra, Mepilex Border -Primary Dressing Covered/Secured with Dry Gauze -Other Covering -Aquacel Extra 1 -Mepilex Border 1 1 -Optilok 6.5x10 Right -Lotion applied to leg before No compression wrap -Multi-Layered Wrap Application -Stockings Yes Treatment Response Procedure Procedure Tolerated Well Tolerated Well Vital Signs Temperature (97.8 F-99.1 F) Temperature Source Pulse Rate (60-100) Pulse Location Respiratory Rate (12-18) Respiratory rate source Blood Pressure (90/60-120/80) Blood Pressure Mean (mm Hg) Source Pain Scale: 0-10 Numeric Is Patient Pain Free? Yes Yes Teaching: Wound Center Dressing Your Wound -Person Taught Patient Patient -Teaching Method Discussion, Discussion, Demonstration Demonstration -Response to teaching Verbalize Verbalize understanding understanding WC - Visit Discharge Discharge Condition Stable Stable Ambulatory Status Ambulatory Ambulatory,Cane Transportation Private Auto Private Auto Accompanied by self SELF Medication Reconcilliation completed & No No provided to patient/care provider Clinical Summary of Care Provided Yes Yes Notes: Assessment/Plan Assessment/Plan (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: CODE(S): C44.721 - Squamous cell carcinoma of skin of unspecified lower limb, including hip QUALIFIERS: Laterality: right Qualified Code(s): C44.722 - Squamous cell carcinoma of skin of right lower limb, including hip PLAN: Wound resolved (2) Venous ulcer of ankle: CODE(S): I83.003 - Varicose veins of unspecified lower extremity with ulcer of ankle; L97.309 - Non-pressure chronic ulcer of unspecified ankle with unspecified severity QUALIFIERS: Varicose vein presence: with varicose veins Laterality: right Non-pressure ulcer stage: limited to breakdown of skin Qualified Code(s): I83.013 - Varicose veins of right lower extremity with ulcer of ankle; L97.311 - Non-pressure chronic ulcer of right ankle limited to breakdown of skin PLAN: Procedure by Dr. Galaviz for her right lower leg edema and abnormal venous ultrasounds to be done tomorrow. Obvious occlusions to her GSV's and she has discoloration to the leg with swelling and pain. (3) Non-pressure ulcer of right lower extremity: CODE(S): L97.919 - Non-pressure chronic ulcer of unspecified part of right lower leg with unspecified severity QUALIFIERS: Non-pressure ulcer stage: with fat layer exposed Qualified Code(s): L97.912 - Non-pressure chronic ulcer of unspecified part of right lower leg with fat layer exposed PLAN: EpiFix #5 applied wound veil over top and Steri-Strips then Aquacel extra and a dry dressing Follow-up in 1 week (4) Nonhealing nonsurgical wound: CODE(S): T14.8XXA - Other injury of unspecified body region, initial encounter
--- NOTE | 2023-11-10 08:35 | WC ---
2.7.24 RT LAT ANKLE
--- NOTE | 2023-11-10 12:59 | WC ---
2.21.24 RT LAT ANKLE
== END 2023-11-02 23:59 | disposition home or self-care (01) ==
LOC: WC 08:30
PROVIDERS: PCP Internal Medicine; Referring Provider Nurse Practitioner; Visit Provider Nurse Practitioner
DX: I83.013 Varicose veins of right lower extremity with ulcer of ankle (principal); L97.312 Non-pressure chronic ulcer of right ankle with fat layer exposed; C50.919 Malignant neoplasm of unspecified site of unspecified female breast; C44.722 Squamous cell carcinoma of skin of right lower limb, including hip; R60.0 Localized edema; C44.721 Squamous cell carcinoma of skin of unspecified lower limb, including hip
CPT/HCPCS: 15271; 29581; Q4186

== ENCOUNTER → 2023-11-02 | Outpatient (CLI) | payer MEDICARE, OTHER, SELFPAY ==
--- NOTE | 2023-11-02 12:12 | VDLE_ITS ---
Reason For Study: Recent chemical ablation procedure. RIGHT LEFT Rt GSV dilated and NONCOMPRESSIBLE with CFV is compressible, spontaneous, phasic, intraluminal echoes from distal calf to competent, and demonstrates normal proximal calf. Finding is consistent with augmentation. recent chemical ablation procedure. GSV knee FV is compressible, spontaneous, phasic, to Prox thigh HX of ablation/stripping competent and demonstrates normal procedure. augmentation. CFV is compressible, spontaneous, phasic, competent and demonstrates normal augmentation. FV is compressible, spontaneous, phasic, competent and demonstrates normal augmentation. POP V is compressible, spontaneous, phasic, competent and demonstrates normal augmentation. T/P Trunk is compressible. PTV is compressible. RT PerV is compressible. Procedure This is a venous duplex using B-mode, color flow and spectral Doppler. Exam performed in department. The exam was diagnostic. VL/Venous Duplex US, Unilateral Interpretation Summary Deep veins of the right lower extremity are patent and compressible segmentally . There is no evidence of right lower extremity deep vein thrombosis. Right great saphenous v ein occluded consistent with recent ablation Ordering Physician: Zina Flores Referring Physician: Ernesto Rodriguez Performed By: Jamari Frias RVT
--- OUTSIDE RECORDS SUMMARY | 2023-11-02 19:19 | XMS RPT_ITS | CCD ---
Author Name Unknown Address [address] [place] [address] Organization [facility] Care Team Providers Care Adobe Maker Name Role Phone LIIL POLLACK Unavailable Unavailable LILI POLLACK Unavailable Unavailable Unavailable Primary Care Provider UnavailJuve Weber MD Unavailable Unavailable Abdirahman Carney Primary Care Provider Rosales Dickerson Primary Care Unavailable Rosales Dickerson Attending Unavailable Rosales Dickerson MD Unavailable Unavailable Allergies Allergy Classification Reported Allergen(s) Allergy Type Date of Onset Reaction(s) Facility (2 sources) betamethasone; Translations: [BETAMETHASONE DIPROPIONATE] Drug Allergy 0 Intolerance [facility] Repository (2 sources) clarithromycin; Translations: [CLARITHROMYCIN (BULK)] Drug Allergy 0 Other: See Comments [facility] Repository Medications Current Medications Medication Drug Class(es) Dates Sig (Normalized) Sig (Original) Diclofenac (3 sources) Nonsteroidal Anti-inflammatory Drug Start: 06-11-2018 VOLTAREN GEL 100gm Topical GEL apply 2g to knees daily - Active Completed/Discontinued Medications Medication Drug Class(es) Dates Sig (Normalized) Sig (Original) ibuprofen 200 mg oral tablet (1 source) Nonsteroidal Anti-inflammatory Drug take 2 tablets by mouth three times daily ibuprofen (MOTRIN) 200 mg tablet Take 400 mg by mouth three times daily. 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) Vascular disorder; Translations: [Embolism and thrombosis of unspecified artery] Onset: 06-03-2008 06-03-2008 Chronic Esophageal disorders (1 source) Esophageal varices without bleeding; Translations: [Esophageal varices without bleeding] Onset: 08-16-2017 Chronic Essential hypertension (10 sources) Essential (primary) hypertension; Translations: [Essential hypertension] Chronic Fluid and electrolyte disorders (13 sources) Hypokalemia; Translations: [Hypokalemia] Onset: 05-02-2011 Episodic Gastrointestinal hemorrhage (1 source) Bleeding esophageal varices; Translations: [Secondary esophageal varices with bleeding] Onset: 05-12-2017 05-12-2017 Chronic Open wounds of extremities (4 sources) Unspecified open wound, right lower leg, initial encounter; Translations: [Wound of right lower extremity, initial encounter] Episodic Osteoarthritis (14 sources) Unspecified osteoarthritis, unspecified site; Translations: [Bilateral primary osteoarthritis of knee] Chronic Other connective tissue disease (8 sources) Pain in right hand Episodic Other lower respiratory disease (4 sources) Shortness of breath; Translations: [SOB (shortness of breath)] Episodic Other non-traumatic joint disorders (4 sources) Pain in right knee Episodic Other nutritional; endocrine; and metabolic disorders (8 sources) Hypomagnesemia; Translations: [Hypomagnesemia] Chronic Other nutritional; endocrine; and metabolic disorders (12 sources) Body mass index (BMI) 26.0-26.9, adult Episodic Other nutritional; endocrine; and metabolic disorders (4 sources) Body mass index (BMI) 25.0-25.9, adult Episodic Other nutritional; endocrine; and metabolic disorders (8 sources) Body mass index (BMI) 27.0-27.9, adult Episodic Other screening for suspected conditions (not mental disorders or infectious disease) (17 sources) Encounter for other screening for malignant neoplasm of breast; Translations: [Encounter for screening for malignant neoplasm of breast, unspecified screening modality] Onset: 05-02-2011 Episodic Other skin disorders (4 sources) Rash and other nonspecific skin eruption; Translations: [Rash] Episodic Other upper respiratory infections (4 sources) Acute upper respiratory infection, unspecified; Translations: [Viral upper respiratory tract infection] Episodic Residual codes; unclassified (8 sources) Body mass index (BMI) 24.0-24.9, adult Episodic Residual codes; unclassified (8 sources) Generalized edema; Translations: [Generalized edema] Episodic Residual codes; unclassified (1 source) Pain; Translations: [Pain, unspecified] Episodic Rheumatoid arthritis and related disease (4 sources) Rheumatoid arthritis, unspecified Chronic Skin and subcutaneous tissue infections (4 sources) Cellulitis of right lower limb; Translations: [Cellulitis of right lower extremity] Episodic Unclassified (14 sources) Office/outpatient visit,est, mod Onset: 05-23-2018 Resolved: 05-11-2021 Varicose veins of lower extremity (4 sources) Varicose veins of bilateral lower extremities with other complications; Translations: [Varicose veins of both legs with edema] Episodic Past or Other Problems Problem Classification Problem Date Documented Da te Episodic/Chronic Abdominal hernia (1 source) Umbilical hernia; Translations: [Umbilical hernia without obstruction or gangrene] Onset: 12-05-2016 12-05-2016 Episodic Other connective tissue disease (1 source) Swelling of hand; Translations: [Other specified soft tissue disorders] Onset: 04-28-2011 04-28-2011 Episodic Other nutritional; endocrine; and metabolic disorders (1 source) Weight loss; Translations: [Abnormal weight loss] Onset: 04-28-2011 04-28-2011 Episodic Unclassified (2 sources) Office/outpatient visit,new, mod Onset: 04-10-2018 Results Test Name Value Interpretation Reference Range Facil ity Encounters Encounter Date Encounter Type Care Provider Facility Start: 06-12-2023 ambulatory Rosales Dickerson [facility] Start: 06-12-2023 End: 06-12-2023 Rosales Dickerson Work Phone: No Location Start: 10-18-2022 Orders Only Yoseph macias MD Work Phone: Orthopaedics Procedures Date Procedure Procedure Detail Performing Clinician Start: 05-11-2021 End: 05-11-2021 BP scrn perf rec interval Juve Dickerson MD Start: 05-11-2021 End: 05-11-2021 Calc BMI norm parameters Juve Dickerson MD Start: 05-11-2021 End: 05-11-2021 Docrev cur meds by cuong Dickerson MD Start: 04-15-2021 End: 04-15-2021 BP scrn perf rec interval Juve Dickerson MD Start: 04-15-2021 End: 04-15-2021 Calc BMI norm parameters Juve Dickerson MD Start: 04-15-2021 End: 04-15-2021 Docrev cur meds by cuong Dickerson MD Start: 05-28-2020 End: 05-28-2020 Blood count complete auto&auto difrntl wbc Juve Dickerson MD Start: 05-28-2020 End: 05-28-2020 BP For DM Systolic <130mmHg Juve Dickerson MD Start: 05-28-2020 End: 05-28-2020 Calc BMI abv up jorje f/u Juve Dickerson MD Start: 05-28-2020 End: 05-28-2020 Collection venous blood venipuncture Juve Dickerson MD Start: 05-28-2020 End: 05-28-2020 Colonoscopy Reviewed Juve Dickerson MD Start: 05-28-2020 End: 05-28-2020 Depression screen annual Juve Dickerson MD Start: 05-28-2020 End: 05-28-2020 Bates BP less 90 Juve Dickerson MD Start: 05-28-2020 End: 05-28-2020 DIAST BP 80-89 MM HG Juve Dickerson MD Start: 05-28-2020 End: 05-28-2020 Docrev cur meds by cuong Dickerson MD Start: 05-28-2020 End: 05-28-2020 Fall Risk Screening With Falls Juve Dickerson MD Start: 05-28-2020 End: 05-28-2020 Fall Screening Juve Dickerson MD Start: 05-28-2020 End: 05-28-2020 LDL For DM <100mg/dl Juve Dickerson MD Start: 05-28-2020 End: 05-28-2020 Lipid panel Juve Dickerson MD Start: 05-28-2020 End: 05-28-2020 Mammography Juve Dickerson MD Start: 05-28-2020 End: 05-28-2020 PPPS, initial visit Juve Dickerson MD Start: 05-28-2020 End: 05-28-2020 Pre-htn or htn doc, f/u indc Juve Dickerson MD Start: 05-28-2020 End: 05-28-2020 Scr dep neg, no plan reqd Juve Dickerson MD Start: 05-28-2020 End: 05-28-2020 Sys BP less 140 Juve Dickerson MD Start: 05-28-2020 End: 05-28-2020 Tobacco Screening, Non-smoker Juve Dickerson MD Start: 02-03-2020 WOUND CENTER PROGRESS NOTE Dipak Newby Work Phone: Start: 01-20-2020 WOUND CENTER PROGRESS NOTE Dipak Newby Work Phone: Start: 01-14-2020 WOUND CENTER TREATME NT NOTE Dipak Newby Work Phone: Start: 01-13-2020 End: 01-13-2020 Collection venous blood venipuncture Juve Dickerson MD Start: 01-13-2020 End: 01-13-2020 LDL For DM <100mg/dl Juve Dickerson MD Start: 01-13-2020 End: 01-13-2020 Lipid panel Juve Dickerson MD Start: 01-13-2020 End: 01-13-2020 Lipoprotein direct measurement ldl cholesterol Juve Dickerson MD Start: 01-07-2020 WOUND CENTER PROGRESS NOTE Dipak Newby Work Phone: Start: 12-23-2019 WOUND CENTER PROGRESS NOTE Dipak Newby Work Phone: Start: 12-23-2019 WOUND CENTER TREATME NT NOTE Dipak Newby Work Phone: Start: 05-27-2019 End: 05-27-2019 BP scrn perf rec interval Juve Dickerson MD Start: 05-27-2019 End: 05-27-2019 Calc BMI norm parameters Juve Dickerson MD Start: 05-27-2019 End: 05-27-2019 Depression screen annual Juve Dickerson MD Start: 05-27-2019 End: 05-27-2019 Docrev cur meds by elig clin Juve Dickerson MD Start: 05-27-2019 End: 05-27-2019 EKG for initial prevent exam Juve Dickerson MD Start: 05-27-2019 End: 05-27-2019 Fall Risk Screening, No Falls Juve Dickerson MD Start: 05-27-2019 End: 05-27-2019 Fall Screening Juve Dickerson MD Start: 05-27-2019 End: 05-27-2019 Flu immunize order/admin Juve Dickerson MD Start: 05-27-2019 End: 05-27-2019 Initial preventive exam Juve Dickerson MD Start: 05-27-2019 End: 05-27-2019 Scr dep neg, no plan reqd Juve Dickerson MD Start: 05-27-2019 End: 05-27-2019 Screening test visual acuity quantitative bilat Juve Dickerson MD Start: 05-27-2019 End: 05-27-2019 Tobacco Screening, Non-smoker Juve Dickerson MD Start: 05-23-2018 End: 05-23-2018 Assay of magnesium Juve Dickerson MD Start: 05-23-2018 End: 05-23-2018 BP scrn perf rec interval Juve Dickerson MD Start: 05-23-2018 End: 05-23-2018 Calc BMI abv up jorje f/u Juve Dickerson MD Start: 05-23-2018 End: 05-23-2018 Collection venous blood venipuncture Juve Dickerson MD Start: 05-23-2018 End: 05-23-2018 Colonoscopy Reviewed Juve Dickerson MD Start: 05-23-2018 End: 05-23-2018 Depression screen annual Juve Dickerson MD Start: 05-23-2018 End: 05-23-2018 Docrev cur meds by cuong Dickerson MD Start: 05-23-2018 End: 05-23-2018 Fall Risk Screening, No Falls Juve Dickerson MD Start: 05-23-2018 End: 05-23-2018 Fall Screening Juve Dickerson MD Start: 05-23-2018 End: 05-23-2018 Mammography Juve Dickerson MD Start: 05-23-2018 End: 05-23-2018 PPPS, initial visit Juve Dickerson MD Start: 05-23-2018 End: 05-23-2018 Scr dep neg, no plan reqd Juve Dickerson MD Start: 05-23-2018 End: 05-23-2018 Tobacco Screening, Non-smoker Juve Dickerson MD Start: 04-10-2018 End: 04-10-2018 Assay of magnesium Juve Dickerson MD Start: 04-10-2018 End: 04-10-2018 Collection venous blood venipuncture Juve Dickerson MD Start: 05-05-2011 Mammography Yoseph boss MD Work Phone: Start: 09-15-2008 Colonoscopy Yoseph boss MD Work Phone: Plan of Treatment Date Care Activity Detail Author Start: 09-04-2022 ADVANCE DIRECTIVE DISCUSSION ADVANCE DIRECTIVE DISCUSSION [facility] Start: 09-04-2022 DEPRESSION ASSESSMENT DEPRESSION ASSESSMENT [facility] Start: 05-05-2022 Influenza vaccination INFLUENZA (#1) [facility] Start: 04-15-2021 Patient referral Referrals: Vascular Surgery. [facility] Start: 05-28-2020 Patient referral Screening Mammo, [facility] [employer] [facility] [facility] [employer] [facility] Start: 05-12-2020 DIABETES SCREEN DIABETES SCREEN [facility] Start: 05-05-2020 Influenza vaccination given INFLUENZA VACCINE (Season Ended) [facility] Start: 02-17-2020 End: 02-17-2020 Appointment 02/17/2020 Appointment Wound Dipak Bundy DO [address] [place] [address] [phone] Isi Paul RN [facility] Start: 01-28-2020 [facility] ([id number]), Appointment on: , Sent on: [facility] Start: 01-28-2020 End: 01-28-2020 Appointment 01/28/2020 Appointment Wound Dipak Bundy DO [address] [place] [address] [phone] Isi Paul RN [facility] Start: 01-20-2020 End: 01-20-2020 Appointment 01/20/2020 Appointment Dipak Jolly DO [address] [place] [address] [phone] Isi Paul RN [facility] Start: 01-14-2020 End: 01-14-2020 Appointment 01/14/2020 Appointment Wound Care Dipak Newby, DO [address] [place] [address] [phone] Isi Paul RN [facility] Wound [facility] Start: 01-13-2020 Patient referral DX MAMMO INCL CAD UNI L [email or web address] Start: 01-06-2020 End: 01-06-2020 Appointment 01/06/2020 Appointment Wound Care Dipak Newby DO [address] [place] [address] [phone] Ileana De La Cruz RN [facility] Wound [facility] Start: 06-24-2019 Patient referral DX MAMMO INCL CAD BI [email or web address] Start: 05-29-2019 Patient referral [email or web address] Start: 05-27-2019 CCP IgG Antibodies ([id number]), Ordered on: [email or web address] Start: 05-17-2019 Patient referral SCR MAMMO BI INCL CAD [email or web address] Start: 05-05-2019 Influenza vaccination given INFLUENZA VACCINE (#1) [facility] Start: 05-23-2018 Patient referral Referrals: Dermatology. Ashwin Duran MD [email or web address] Start: 2016 BONE DENSITY BONE DENSITY [facility] Start: 2016 Fall risk assessment FALL RISK [facility] Start: 2016 Glaucoma screening GLAUCOMA/EYE EXAM AGE 65+ [facility] Start: 2016 Osteoporosis risk assessment done BONE DENSITY SCREENING [facility] Start: 2016 Pneumococcal polysaccharide vaccine (product) PNEUMONIA VACCINE (PCV13 PPSV23) (1 of 2 - PCV13) [facility] Start: 2016 PNEUMOCOCCAL: 65+ (1 - PCV) PNEUMOCOCCAL: 65+ (1 - PCV) [facility] Start: 04-29-2016 LIPID SCREEN LIPID SCREEN [facility] Start: 05-05-2012 Mammography MAMMOGRAM [facility] Start: 2011 Varicella-zoster vaccine (product) ADULT VZV VACCINE [facility] Start: 09-15-2009 Colonoscopy COLONOSCOPY [facility] Start: 09-15-2009 COLORECTAL CANCER SCREENING COLORECTAL CANCER SCREENING [facility] Start: 2001 Colonoscopy COLONOSCOPY 10 YR [facility] Start: 2001 Screening for malignant neoplasm of colon [facility] Start: 2001 SHINGLES VACCINE (1 of 2) SHINGLES VACCINE (1 of 2) [facility] Start: 2001 SHINGRIX VACCINE (1 of 2) SHINGRIX VACCINE (1 of 2) [facility] Start: 09-05-2001 Urine microalbumin profile DTAP,TDAP,TD (1 - Tdap) [facility] Start: 1996 COLOGUARD (FIT-DNA) COLOGUARD (FIT-DNA) [facility] Start: [address] COLONOGRAPHY [facility] Start: 1996 FECAL OCCULT BLOOD FECAL OCCULT BLOOD [facility] Start: 1996 SIGMOIDOSCOPY SIGMOIDOSCOPY [facility] Start: 1991 Screening mammography MAMMOGRAM [facility] Start: 1972 Tetanus, diphtheria and acellular pertussis vaccination TDAP/TD ADULT [facility] Start: 1969 ANNUAL WELLNESS VISIT ANNUAL WELLNESS VISIT [facility] Start: 1963 Adult depression screening assessment DEPRESSION SCREENING [facility] Start: [birth year]-24-1951 COVID-19 VACCINE (#1) COVID-19 VACCINE (#1) [facility] Start: 1950 Hepatitis C screening HEPATITIS C SCREENING [facility] End: 12-23-2019 Wound culture Wound culture Microbiology Routine One Time for 1 Occurrences starting 12/23/2019 until 12/23/2019 [facility] Immunizations Immunization Date Immunization Notes Care Provider Destiny arias 07-19-2002 hepatitis A vaccine, unspecified formulation Yoseph Briones MD Work Phone: [facility] 07-19-2002 hepatitis B vaccine, adult dosage Yoseph Briones MD Work Phone: [facility] 10-23-2001 hepatitis A vaccine, unspecified formulation Yoseph Briones MD Work Phone: [facility] 10-23-2001 hepatitis B vaccine, adult dosage Yoseph Briones MD Work Phone: [facility] 09-04-2001 tetanus and diphther ia toxoids, not adsorbed, for adult use Yoseph Briones MD Work Phone: [facility] Work Phone: Payers Date Payer Category Payer Medicare xxxxxxxxxxxx [id number] 2018 Unknown MMO MMO [employer]AD[employer] NAL [id number] 2018-Present [phone] [address] [place] [address] Indemnity [id number] 2018 Medicare [id number] 2016 Medicare MEDICARE MEDICAR E A AND B [id number] 2016-Present [phone] [address] [address] [place] [address] Medicare [id number] Medicare MEDICARE MEDICAR E PART A & B xxxxxxxxxxx Effective for all dates [address] [place] [address] Medicare xxxxxxxxxxx [id number] Unknown [id number] Social History Date Type Detail Facility [facility] Sex Assigned At Not on file [facility] Start: 10-26-2021 End: 06-12-2023 Tobacco smoking status [facility] Unknown if ever smoked [email or web address] Start: 10-26-2021 Alcohol intake Alcohol Use Details [facility] [email or web address] Start: 1950 Sex Assigned At Female [facility] [facility] [email or web address] Start: 04-04-2012 [facility] tobacco [facility] Start: 04-04-2012 Tobacco use and exposure Smokeless tobacco non-user [facility] Start: 06-05-2019 Alcohol intake Current drinke r of alcohol (finding) [facility] Start: 03-28-2017 Alcohol Comment 3 glasses of w ine daily-quit 05/2016 [facility] Clinical Notes 05-28-2020 to 06-09-2021 Note Date & Type Note Facility 06-09-2021 Note HNO ID: [id number] Author: Hugo Basilio APRN.POMPOM MAKER Service: ? Author Type: Nurse Practitioner Type: Progress Notes Filed: 06/09/2021 1:44 PM Note Text: Patient triaged at [facility]. Patient not known to [facility]. Here today with worsening dizziness over past month, had head injury requiring sutures. Has had ct X2 negative. Does not have pcp. Since worsening s/s I will refer to ER. [facility] [employer] Work Phone: [phone] Instructions* Date Instruction Additional Infor mation Counseled on weight reduction Counseled on dietary changes [employer] Work Phone: consult note* Clinical Note Date No Information [employer] Work Phone: Discharge summary* Clinical Note Date No Information [employer] Work Phone: Evaluation note* Type Assessment Date No [employer] Work Phone: Evaluation note* Diagnosis Pain- Primary Generalized pain [facility] this [facility] Clinical Note Date No [employer] Work Phone: Progress note* Clinical Note Date No [employer] Work Phone: Reason for referral (narrative)* Reason For Referral No [employer] Work Phone: Reason for referral (narrative)* Diagnostic Procedure Only (Routine) - Authorized Specialty Diagnoses / Procedures Referred By Contac t Referred To Contact XR IMAGING Diagnoses Pain Procedures XR HIP GENERAL 3V PELV/AP/LAT LEFT RADEX HIP UNILATERAL WITH PELVIS 2-3 VIEWS Yoseph Briones MD [address] [place] [address] Xr Imaging Referral ID Status Reason Start Date Expiration Date Visits Requested Visits Authorized [id number] Authorized Auto-Generat ed Referral 10/18/2022 11/17/2023 1 1 [facility] Summary Purpose Family History Family Member Type Diagnosis Age At Onset Half brother (M) Problem (finding) Family histor y of malignant neoplasm of pancreas (Cause Of ) 70 Father Problem (finding) Family history of diabetes mellitus type 2 Daughter Problem (finding) Alive and well Brother Problem (finding) Alive and well Father Problem (finding) Heart disease (Cause Of ) 90 Father Problem (finding) Family history of congestive heart failure (Cause Of ) 90 Mother Problem (finding) Family history of demen tia Family Member Type Diagnosis Age At Onset Half brother (M) Problem (finding) malignant albin plasm of pancreas (Cause Of ) 70 Father Problem (finding) diabetes mellitus type 2 Daughter Problem (finding) Alive and well Brother Problem (finding) Alive and well Father Problem (finding) Heart disease (Cause Of ) 90 Father Problem (finding) congestive hea rt failure (Cause Of ) 90 Mother Problem (finding) dementia Advance Directives Documents on File Type Date Recorded 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 DATE CREATED AUTHOR AUTHOR'S ORGANIZ ATION 02/13/2020 Formerly named [facility] DATE CREATED AUTHOR AUTHOR'S ORGANIZ ATION 05/06/2021 [facility] DATE CREATED AUTHOR AUTHOR'S ORGANIZ ATION 10/04/2021 [facility] DATE CREATED AUTHOR AUTHOR'S ORGANIZ ATION 06/13/2023 [facility] Comments (unrecognize d section and content) In the event this informatio n is protected by the Federal Confidentiality of Alcohol and Drug Abuse Patient Records regulations: The Federal rules restrict any use of the information to criminally investigate or prosecute any alcohol or drug abuse patient.[facility] Care Teams (unrecognized sec tion and content) FOR RECORDS PERTAINING TO PATIENTS WHO ARE OR HAVE BEEN ENROLLED IN A CHEMICAL DEPENDENCY/SUBSTANCEABUSE PROGRAM, SOME INFORMATION MAY BE OMITTED. This clinical summary was aggregated from multiple sources. Caution should be exercised in using it in the provision of clinical care. This summary normalizes information from multiple sources, and as a consequence, information in this document may materially change the coding, format and clinical context of patient data. In addition, data may be omitted in some cases. CLINICAL DECISIONS SHOULD BE BASED ON THE PRIMARY CLINICAL RECORDS. [facility] provides no warranty or guarantee of the accuracy or completeness of information in this document.
== END | disposition home or self-care (01) ==
LOC: CVS 12:11
PROVIDERS: PCP Internal Medicine; Referring Provider Physician Assistant; Visit Provider Physician Assistant
DX: I87.2 Venous insufficiency (chronic) (peripheral) (principal); L97.912 Non-pressure chronic ulcer of unspecified part of right lower leg with fat layer exposed
CPT/HCPCS: 93971

== ENCOUNTER → 2023-11-03 | Outpatient (CLI) | payer MEDICARE, OTHER, SELFPAY ==
--- OUTSIDE RECORDS SUMMARY | 2023-11-03 11:43 | XMS RPT_ITS | CCD ---
Author Name Unknown Address [address] [place] [address] Organization [facility] Care Team Providers Care Manager Green Name Role Phone LILI POLLACK Unavailable Unavailable LILI POLLACK Unavailable Unavailable Unavailable Primary Care Provider UnavailJuve Weber MD Unavailable Unavailable Abdirahman Carney Primary Care Provider Rosales Dickerson Primary Care Unavailable Rosales Dickerson Attending Unavailable Rosales Dickerson MD Unavailable Unavailable Allergies Allergy Classification Reported Allergen(s) Allergy Type Date of Onset Reaction(s) Facility (2 sources) betamethasone; Translations: [BETAMETHASONE DIPROPIONATE] Drug Allergy 0 Intolerance [facility] Repository (2 sources) clarithromycin; Translations: [CLARITHROMYCIN (BULK)] Drug Allergy 0 Other: See Comments [facility] Repository Medications Current Medications Medication Drug Class(es) [...] Type Care Provider Facility Start: 06-12-2023 ambulatory Rosaels Dickerson [facility] Start: 06-12-2023 End: 06-12-2023 Rosales Dickerson [...] 09-04-2022 ADVANCE DIRECTIVE DISCUSSION ADVANCE DIRECTIVE DISCUSSION [facility] Start: 09-04-2022 DEPRESSION ASSESSMENT DEPRESSION ASSESSMENT [facility] Start: 05-05-2022 Influenza vaccination INFLUENZA (#1) [facility] Start: 04-15-2021 Patient referral Referrals: Vascular Surgery. [facility] Start: 05-28-2020 Patient referral Screening Mammo, Bilat [facility] Start: 05-12-2020 DIABETES SCREEN DIABETES SCREEN [facility] Start: 05-05-2020 Influenza vaccination given INFLUENZA VACCINE (Season Ended) [facility] Start: 02-17-2020 End: 02-17-2020 Appointment 02/17/2020 Appointment Wound Dipak Bundy DO [address] [place] [address] [phone] Isi Paul RN [facility] Start: 01-28-2020 [facility] ([id number]), Appointment on: , Sent on: [facility] Start: 01-28-2020 End: 01-28-2020 Appointment 01/28/2020 Appointment Wound Dipak Bundy DO [address] [place] [address] [phone] Isi Paul RN [facility] Start: 01-20-2020 End: 01-20-2020 Appointment 01/20/2020 Appointment Dipak Jolly DO [address] [place] [address] [phone] Isi Paul RN [facility] Start: 01-14-2020 End: 01-14-2020 Appointment 01/14/2020 Appointment Wound Care Dipak Newby, DO [address] [place] [address] [phone] Isi Paul RN [facility] Start: 01-13-2020 Patient referral DX MAMMO INCL CAD UNI L [email or web address] Start: 01-06-2020 End: 01-06-2020 Appointment 01/06/2020 Appointment Wound Care Dipak Newby DO [address] [place] [address] [phone] Ileana De La Cruz RN [facility] Wound [facility] Start: 06-24-2019 Patient referral DX MAMMO INCL CAD BI [email or web address] Start: 05-29-2019 [facility] referral [email or web address] Start: 05-27-2019 CCP IgG Antibodies ([id number]), Ordered on: [email or web address] Start: 05-17-2019 Patient referral SCR MAMMO BI INCL CAD [email or web address] Start: 05-05-2019 Influenza vaccination given INFLUENZA VACCINE (#1) [facility] Start: 05-23-2018 Patient referral Referrals: Dermatology. Ashwin Duran MD [email or web address] Start: 2016 BONE DENSITY BONE DENSITY [facility] Start: 2016 Fall risk assessment FALL RISK [facility] Start: 2016 Glaucoma screening GLAUCOMA/EYE EXAM AGE 65+ [facility] Start: 2016 Osteoporosis risk assessment done BONE DENSITY SCREENING [facility] Start: 2016 Pneumococcal polysaccharide vaccine (product) PNEUMONIA VACCINE (PCV13 PPSV23) (1 of 2 - PCV13) [facility] Start: 2016 PNEUMOCOCCAL: 65+ (1 - PCV) PNEUMOCOCCAL: 65+ (1 - PCV) [facility] Start: 04-29-2016 LIPID SCREEN LIPID SCREEN [facility] Start: 05-05-2012 Mammography MAMMOGRAM [facility] Start: 2011 Varicella-zoster vaccine (product) ADULT VZV VACCINE [facility] Start: 09-15-2009 Colonoscopy COLONOSCOPY [facility] Start: 09-15-2009 COLORECTAL CANCER SCREENING COLORECTAL CANCER SCREENING [facility] Start: 2001 Colonoscopy COLONOSCOPY 10 YR [facility] Start: 2001 Screening for malignant neoplasm of colon [facility] Start: 2001 SHINGLES VACCINE (1 of 2) SHINGLES VACCINE (1 of 2) [facility] Start: 2001 SHINGRIX VACCINE (1 of 2) SHINGRIX VACCINE (1 of 2) [facility] Start: 09-05-2001 Urine microalbumin profile DTAP,TDAP,TD (1 - Tdap) [facility] Start: 1996 COLOGUARD (FIT-DNA) COLOGUARD (FIT-DNA) [facility] Start: [address] COLONOGRAPHY [facility] Start: 1996 FECAL OCCULT BLOOD FECAL OCCULT BLOOD [facility] Start: 1996 SIGMOIDOSCOPY SIGMOIDOSCOPY [facility] Start: 1991 Screening mammography MAMMOGRAM [facility] Start: 1972 Tetanus, diphtheria and acellular pertussis vaccination TDAP/TD ADULT [facility] Start: 1969 ANNUAL WELLNESS VISIT ANNUAL WELLNESS VISIT [facility] Start: 1963 Adult depression screening assessment DEPRESSION SCREENING [facility] Start: 03-24-1952 COVID-19 VACCINE (#1) COVID-19 VACCINE (#1) [facility] Start: 1951 Hepatitis C screening HEPATITIS C SCREENING [facility] End: 12-23-2019 Wound culture Wound culture Microbiology Routine One Time for 1 Occurrences starting 12/23/2019 until 12/23/2019 [facility] Immunizations Immunization Date Immunization Notes Care Provider Destiny arias 07-19-2002 hepatitis A vaccine, unspecified formulation Yoseph Briones MD Work Phone: [facility] 07-19-2002 hepatitis B vaccine, adult dosage Yoseph Briones MD Work Phone: [facility] 10-23-2001 hepatitis A vaccine, unspecified formulation Yoseph Briones MD Work Phone: [facility] 10-23-2001 hepatitis B vaccine, adult dosage Yoseph Briones MD Work Phone: [facility] 09-04-2001 tetanus and diphther ia toxoids, not adsorbed, for adult use Yoseph Briones MD Work Phone: [facility] Work Phone: Payers Date Payer Category Payer Medicare xxxxxxxxxxxx [id number] 2018 Unknown MMO MMO [employer] NAL [id number] 2018-Present [phone] [address] [place] [address] Indemnity [id number] 2018 Medicare [id number] 2016 Medicare MEDICARE MEDICAR E A AND B [id number] 2016-Present [phone] [address] [address] [place] [address] Medicare [id number] Medicare MEDICARE MEDICAR E PART A & B xxxxxxxxxxx Effective for all dates [address] [place] [address] Medicare xxxxxxxxxxx [id number] Unknown [id number] Social History Date Type Detail Facility [facility] 2[facility] Sex Assigned At Not on file [facility] Start: 10-26-2021 End: 06-12-2023 Tobacco smoking status [facility]IS Unknown if ever smoked [email or web address] Start: 10-26-2021 Alcohol intake Alcohol Use Details [email or web address] Start: 1950 Sex Assigned At Female [email or web address] Start: 04-04-2012 [facility] tobacco [facility] Start: 04-04-2012 Tobacco use and exposure Smokeless tobacco non-user [facility] Start: 06-05-2019 Alcohol intake Current drinke r of alcohol (finding) [facility] Start: 03-28-2017 Alcohol Comment 3 glasses of w ine daily-quit 05/2016 [facility] Clinical Notes 05-28-2020 to 06-09-2021 Note Date & Type Note Facility 06-09-2021 Note HNO ID: [id number] Author: Hugo Basilio APRN.[employer] Service: ? Author Type: Nurse Practitioner Type: Progress Notes Filed: 06/09/2021 1:44 PM Note Text: Patient triaged at [facility]. Patient not known to [facility]. Here today with worsening dizziness over past month, had head injury requiring sutures. Has had ct X2 negative. Does not have pcp. Since worsening s/s I will refer to ER. [facility] Work Phone: [phone] Instructions* Date Instruction Additional Infor mation Counseled on weight reduction Counseled on dietary changes [facility] Work Phone: consult note* Clinical Note Date No Information [facility] Work Phone: Discharge summary* Clinical Note Date No Information [facility] Work Phone: Evaluation note* Type Assessment Date No [facility] Work Phone: Evaluation note* Diagnosis Pain- Primary Generalized pain documented in this encounter [facility] Clinical Note Date No [facility] Work Phone: Progress note* Clinical Note Date No [facility] Work Phone: Reason for referral (narrative)* Reason For Referral No [facility] Work Phone: Reason for referral (narrative)* Diagnostic Procedure Only (Routine) - Authorized Specialty Diagnoses / Procedures Referred By Contac t Referred To Contact XR IMAGING Diagnoses Pain Procedures XR HIP GENERAL 3V PELV/AP/LAT LEFT RADEX HIP UNILATERAL WITH PELVIS 2-3 VIEWS Yoseph Briones MD [address] [place] [address] Xr Imaging Referral ID Status Reason Start Date Expiration Date Visits Requested Visits Authorized [id number] Authorized Auto-Generat ed Referral 10/18/2022 11/17/2023 1 1 [facility] Summary Purpose Family History Family [...] Documents on File Type Date Recorded 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 [place] [place] [facility] DATE CREATED AUTHOR AUTHOR'S ORGANIZ ATION 02/13/2020 [facility] DATE CREATED AUTHOR AUTHOR'S ORGANIZ ATION 05/06/2021 [facility] DATE CREATED AUTHOR AUTHOR'S ORGANIZ ATION 10/04/2021 [facility] DATE CREATED AUTHOR AUTHOR'S ORGANIZ ATION 06/13/2023 [facility] Source Comments (unrecognize d section and content) In the event this informatio n is protected by the Federal Confidentiality of Alcohol and Drug Abuse Patient Records regulations: The Federal rules restrict any use of the information to criminally investigate or prosecute any alcohol or drug abuse patient.[facility] Care Teams (unrecognized sec tion [...] BE BASED ON THE PRIMARY CLINICAL RECORDS. [facility]. provides no warranty or guarantee of the accuracy or completeness of information in this document.
[2023-11-03 12:50] LABS: BNP,B-Type NATRIURETIC PEPTIDE 494.5 pg/mL (0-100)
[2023-11-03 12:53] LABS: Anion Gap 8 (5-15); BUN 10 mg/dL (7-18); BUN/Creat Ratio 15.2 RATIO (10-20); Calcium,Total 9.5 mg/dL (8.5-10.1); Chloride 92 mmol/L (98-107); Creatinine, Serum 0.66 mg/dL (0.55-1.02); EST Glomerular Filtration Rate 94 mL/min (>60); Est Glom Filt Rate - Afr Amer 114 mL/min (>60); Glucose 105 mg/dL (74-106); Potassium 2.9 mmol/L (3.5-5.1); Sodium Level 130 mmol/L (136-145)
== END | disposition home or self-care (01) ==
LOC: BIMLAB 11:22
PROVIDERS: PCP Internal Medicine; Visit Provider Internal Medicine
DX: R06.00 Dyspnea, unspecified (principal); I10 Essential (primary) hypertension
CPT/HCPCS: 36415; 80048; 83880

== ENCOUNTER → 2023-11-14 | Outpatient (CLI) | payer MEDICARE, OTHER, SELFPAY ==
--- NOTE | 2023-11-14 16:14 | ECHOD_ITS ---
Reason For Study: Dyspnea/SOB Procedure This was a 2D Doppler, Color Flow transthoracic echocardiogram. Exam performed in department. Left Ventricle Normal LV size. The estimated ejection fraction is 65 %. Diastolic function is indeterminate. No regional wall motion abnormalities noted. Right Ventricle Normal RV size. Normal systolic function. Atria The left atrium is mildly enlarged. Normal right atrium. No doppler evidence for ASD. Mitral Valve There is no mitral valve stenosis. No mitral valve insufficiency. Tricuspid Valve There is no tricuspid stenosis. Trivial tricuspid valve insufficiency. Pulmonary artery systolic pressure is 50 mmHg. Aortic Valve Trisinus/trileaflet aortic valve. There is no aortic stenosis. Trivial aortic valve insufficiency. Pulmonic Valve There is no pulmonic valvular stenosis. No pulmonic valve insufficiency. Great Vessels Normal aortic root. Pericardium/Pleural No pericardial effusion. MMode/2D Measurements & Calculations LVIDd: 5.2 cm IVSd: 0.98 cm Ao root diam: 3.4 cm LVIDs: 3.4 cm LVPWd: 0.71 cm LA dimension: 4.4 cm FS: 34.0 % LAV(MOD-bp): 69.8 ml LA A4 area: 22.6 cm2 LAV(MOD-bp) Indexed: 41.0 ml/m2 LAV(MOD-sp2): 72.9 ml LAV(MOD-sp4): 57.0 ml Time Measurements MV dec time: 0.21 sec Doppler Measurements & Calculations MV E max bong: 79.6 cm/sec Lat Peak E' Bong: 9.6 cm/sec Med Peak E' Bong: 8.5 cm/sec MV A max bong: 85.0 cm/sec E/E' lat: 8.3 E/E' med: 9.3 MV E/A: 0.94 MV V2 max: 124.5 cm/sec MV P1/2t max bong: 127.5 cm/sec Ao V2 max: 130.2 cm/sec MV max P.2 mmHg MV P1/2t: 92.0 msec Ao max P.8 mmHg MV V2 mean: 70.0 cm/sec MV dec slope: 406.0 cm/sec2 Ao V2 mean: 84.9 cm/sec MV mean P.4 mmHg MVA(P1/2t): 2.4 cm2 Ao mean P.4 mmHg MV V2 VTI: 34.3 cm Ao V2 VTI: 29.8 cm AV (velocity ratio): 1.0 LV V1 max: 130.4 cm/sec PA V2 max: 103.0 cm/sec TR max bong: 330.4 cm/sec LV V1 max P.8 mmHg TR max P.7 mmHg LV V1 mean P.4 mmHg LV V1 mean: 87.1 cm/sec LV V1 VTI: 31.1 cm ECHO/Echo Complete Interpretation Summary The estimated ejection fraction is 65 %. Diastolic function is indeterminate. The left atrium is mildly enlarged. Trivial aortic valve insufficiency. Ordering Physician: Ernesto Rodriguez Referring Physician: Ernesto Rodriguez Performed By: Syed El RCS
== END | disposition home or self-care (01) ==
LOC: CVS 16:11
PROVIDERS: PCP Internal Medicine; Referring Provider Internal Medicine; Visit Provider Internal Medicine
DX: R06.00 Dyspnea, unspecified (principal); R60.0 Localized edema
CPT/HCPCS: 93306

== ENCOUNTER → 2023-11-15 | Outpatient (CLI) | payer MEDICARE, OTHER, SELFPAY ==
[2023-11-15 17:26] LABS: Anion Gap 8 (5-15); BUN 6 mg/dL (7-18); BUN/Creat Ratio 10.7 RATIO (10-20); Calcium,Total 9.2 mg/dL (8.5-10.1); Chloride 101 mmol/L (98-107); Creatinine, Serum 0.56 mg/dL (0.55-1.02); EST Glomerular Filtration Rate 113 mL/min (>60); Est Glom Filt Rate - Afr Amer 136 mL/min (>60); Glucose 97 mg/dL (74-106); Potassium 4.1 mmol/L (3.5-5.1); Sodium Level 134 mmol/L (136-145)
[2023-11-15 19:22] LABS: Vitamin D,25 Hydroxy 66.3 ng/mL
[2023-11-22 21:07] LABS: Vitamin B1, Thiamine 69.8 nmol/L (66.5-200.0)
== END | disposition home or self-care (01) ==
LOC: BIMLAB 16:07
PROVIDERS: PCP Internal Medicine; Referring Provider Physician Assistant; Visit Provider Physician Assistant
DX: M81.0 Age-related osteoporosis without current pathological fracture (principal); F10.20 Alcohol dependence, uncomplicated; E87.6 Hypokalemia
CPT/HCPCS: 36415; 80048; 82140; 82306; 82746; 84425

== ENCOUNTER 2023-11-29 09:45 | Outpatient (RCR) | payer MEDICARE, OTHER, SELFPAY ==
[2023-11-03 00:11] VITALS: BP 120/51; PULSE 69; RESP 16; TEMP 36.5
[2023-11-08 09:52] VITALS: BP 122/65; PULSE 70; RESP 22; TEMP 36.4
--- NOTE | 2023-11-08 11:21 | PCM.WC.PN ---
History of Present Illness Date of Service: 11/08/23 Chief Complaint: Follow-up on her right lower leg lateral area wound nonhealing since at least November. History of Wound: 72-year-old white female in [place] where she is living during the winter. She had a growth removed from her right lateral lower leg. She is still not sure if it is cancer or not. After finally getting through to the dermatology she found that they never sent a biopsy off. She saw her own doctor up here and she was referred to us from her and put on cephalexin. Recently she was taken off her Lasix and has terrible edema of her lower extremities and abdomen. Patient states she has gained 9 pounds Patient had been referred to dermatology and has returned after they did Mohs surgery on her right lateral lower leg. They state they got all the cancer out. We will reapply for EpiFix to restart her. We will also also refer to Dr. Galaviz for vascular problems she is having in her right lower leg. Her biggest complaint is that she is swelling a lot in her lower extremities. Worried about a blood clot Now she has breast cancer and is being seen by oncology at [place] [facility] for that. She has left total mastectomy on 06/12/2023. She states she is healing well from that. Subjective Subjective Mrs Negron is a 72-year-old female presenting for follow-up of full-thickness ulceration appreciated to the Right lower extremity. Patient is seen by the nurse practitioner at the wound care center but is out today on vacation. She is following up with Dr. Johnson for her care. She admits to having a biopsy to the distal ulceration which came back noncancerous. She has been doing home dressing changes at home without problems. She denies trauma. Denies constitutional symptoms. No other pedal complaints at this time. Objective Data Objective Data Vital Signs: Vital Signs Temp Pulse Resp BP 97.5 F L 70 22 H 122/65 H 11/08/23 09:52 11/08/23 09:52 11/08/23 09:52 11/08/23 09:52 Physical Exam Narrative Neurovascular status is unchanged. Evidence of 2 full-thickness ulceration to the right lower extremity lateral aspect. Proximal ulceration is healed. Distal ulceration at the level ankle measures 3.0 x 2.7 x 0.7 cm. This ulceration is fibrogranular nature. No sign of infection. Excisional debridement down to and including subcutaneous tissue with a number 5 mm dermal curette to the right distal/ankle ulceration without incident. Predebridement measurement is 2.6 x 2.8 x 0.2 cm. Postdebridement measurement is 3.0 x 2.7 x 0.3 cm. EpiFix 2 x 2 centimeter was applied to the right distal full-thickness ulceration with 100% use. 10th application. The graft site was free and clear of any infection. The wound/skin graft substitute was dressed with nonadherent bandage secured in place with Steri-Strips followed by bolster dressing as well as a double layer Tubigrip. Debridement Note Debridement Note Debridement Free Text: Excisional debridement down to and including subcutaneous tissue with a number 5 mm dermal curette to the right distal/ankle ulceration without incident. Predebridement measurement is 2.6 x 2.8 x 0.2 cm. Postdebridement measurement is 3.0 x 2.7 x 0.3 cm. EpiFix 2 x 2 centimeter was applied to the right distal full-thickness ulceration with 100% use. 10th application. The graft site was free and clear of any infection. The wound/skin graft substitute was dressed with nonadherent bandage secured in place with Steri-Strips followed by bolster dressing as well as a double layer Tubigrip. Post-Debridement Measurements and Additional Note: Post-Debridement Measurements/Treatment - Nurse 1 - General Ulcer Assessment Start: 11/08/23 09:42 Freq: Status: Active Protocol: WC.LOWEXT Activity Type Activity Date Activity User E-sign Co-sign Detail Recorded Client Recorded Date Recorded By Document 11/08/23 09:52 Desktop 11/08/23 10:01 DL 11/08/23 09:52 - Today's Visit Information Type of service Follow-up Visit (Physician/MIRROR SILVERER ) Arrival Mode Ambulatory Transfer Assistance None Patient Identification Verified (Name & Yes ) Patient Requires Transmission-Based No Precautions Vital Signs Temperature (97.8 F-99.1 F) 97.5 F L Temperature Source Temporal Pulse Rate (60-100) 70 Pulse Location Monitor Respiratory Rate (12-18) 22 H Respiratory rate source Observation Blood Pressure (90/60-120/80) 122/65 H Blood Pressure Mean (mm Hg) 84 Source Monitor History Since Last Visit- (Skip if this is Patient's initial visit) Have you changed medications since your No last visit? Any new allergies or adverse reactions No Had a fall/change in ADL's that may No increase risk of falls Signs or symptoms of abuse and/or No neglect since last visit Have you been in the hospital since your No last visit? Has dressing in place as prescribed Yes Has compression in place as prescribed No Has offloadiing in place as prescribed N/A Experienced any changes in pain level or No management Left Footwear Slipper Right Footwear Regular Shoe Pain Scale: 0-10 Numeric Is Patient Pain Free? No WC - Nurse 1 - General Ulcer Measurement Start: 11/08/23 09:42 Freq: Status: Active Protocol: Activity Type Activity Date Activity User E-sign Co-sign Detail Recorded Client Recorded Date Recorded By Document 11/08/23 09:52 DL Desktop 11/08/23 10:01 BRY 11/08/23 09:52 Wound Center Nurse 1 #3 right lateral ankle -Current Size (cm) - Length 2.6 -Current Size (cm) - Width 2.8 -Current Size (cm) - Depth 0.2 -Total Square Cm 7.28 -Exudate Amt Medium -Exudate Type Serosanguineous -Wound Margin Distinct, Outline Attached -Granulation Amt Small (1-33%) -Granulation Quality [place] -Necrosis Amt Large (67-100%) -Necrotic Tissue Type Adherent Slough -Structure Exposed N/A -Texture (Elif-wound Skin Appearance) Localized Edema ,Scarring -Moisture (Elif-wound Skin Appearance) No Abnormality -Color (Elif-wound Skin Appearance) Hemosiderin Staining -Temperature (Elif-wound Skin No Abnormality Appearance) (Pt Warm) -Tenderness on Palpation (Elif-wound Yes Skin Appearance) -Ulcer Cleansing Soap and Water -Foul Odor after Cleansing No -Anesthetic Used 5% Lidocaine Gel WC - Nurse 2 - General Ulcer CM Notes Start: 11/08/23 09:42 Freq: Status: Active Protocol: Activity Type Activity Date Activity User E-sign Co-sign Detail Recorded Client Recorded Date Recorded By Document 11/08/23 10:23 HUSAM Desktop 11/08/23 10:34 HUSAM 11/08/23 10:23 Wound Center Nurse 2 -Time 10:23 -Correct Patient Yes -Correct Side, Site, Position Yes -Correct Procedure Yes -Procedure Performed Yes -Type of Procedure Debridement -Clinical Debridement Subcutaneous -Tissue Removed Subcutaneous -Post Debridement (cm) - Length 3.0 -Post Debridement (cm) - Width 2.7 -Post Debridement (cm) - Depth 0.3 -Total Square (Post) (cm) 8.10 -Area of Debridement (cm) - Length 3.0 -Area of Debridement (cm) - Width 2.7 -Total Square (Area) (cm) 8.10 -Tunneling No -Undermining/Tunneling No -Circular Undermining No -Wound/Ulcer Outcome Not Healed -Ulcer Cleansing Rinsed/ Irrigated with Saline -Foul Odor after Cleansing No -Bioengineered Tissue Yes -Type of Bioengineered Tissue Epifix -Expiration Date 07/05/28 -Product Lot Number [id number] -Percent Used 100 -Lot number of Saline Used [id number] -Bleeding Controlled with Pressure -Other Type of Bleeding Control cetacaine spray used for pain -Treatment Response Procedure Tolerated Well -Offloading No -Debridement - Subq, 1st 20sq cm No -Apply Skin Sub - 1st 25 sq cm - Legs 1 -Epifix (per sq cm) 4 Pain Scale: 0-10 Numeric Is Patient Pain Free? Yes - Nurse 3 - General Ulcer D/C NN Start: 11/08/23 09:42 Freq: Status: Active Protocol: Activity Type Activity Date Activity User E-sign Co-sign Detail Recorded Client Recorded Date Recorded By Document 11/08/23 10:57 GM Desktop 11/08/23 10:58 GM 11/08/23 10:57 Wound Care Center Nurse 3 #3 right lateral ankle -Ulcer Cleansing Not Cleansed -Foul Odor after Cleansing No -Negative Pressure Wound Therapy N/A -Primary Dressing Applied Mepilex Border -Other Dressing her personal aquacel extra -Mepilex Border 1 Pain Scale: 0-10 Numeric Is Patient Pain Free? Yes Teaching: Wound Center Compression Wraps & Stockings -Person Taught Patient -Teaching Method Discussion -Response to teaching Verbalize understanding WC - Visit Discharge Discharge Condition Stable Ambulatory Status Ambulatory,Cane Transportation Private Auto Medication Reconcilliation completed & Yes provided to patient/care provider Clinical Summary of Care Provided Yes Assessment/Plan Assessment/Plan (1) Non-pressure ulcer of right lower extremity with fat layer exposed: CODE(S): L97.912 - Non-pressure chronic ulcer of unspecified part of right lower leg with fat layer exposed PLAN: Patient was examined and evaluated. All findings were discussed with the patient. All questions were answered to the patient's satisfaction. Excisional debridement down to and including subcutaneous tissue with a number 5 mm dermal curette to the right distal/ankle ulceration without incident. Predebridement measurement is 2.6 x 2.8 x 0.2 cm. Postdebridement measurement is 3.0 x 2.7 x 0.3 cm. EpiFix 2 x 2 centimeter was applied to the right distal full-thickness ulceration with 100% use. 10th application. The graft site was free and clear of any infection. The wound/skin graft substitute was dressed with nonadherent bandage secured in place with Steri-Strips followed by bolster dressing as well as a double layer Tubigrip. Patient will be following up with echocardiogram testing later next week. Follow-up at the wound care center with Dr. Johnson in 1 week. (2) Venous insufficiency of right lower extremity: CODE(S): I87.2 - Venous insufficiency (chronic) (peripheral) (3) Jaundice: CODE(S): R17 - Unspecified jaundice PLAN: When evaluating the patient today the patient shows evidence of jaundice in the sclera of her eyes. The patient is also showing this colorization to her face. Patient does have a history of alcoholic liver cirrhosis. She is currently in treatment. Recommended that the patient talk with her primary doctor referral to the GI specialist Dr. Lola tellez at [place]. Patient was understanding and will be discussing this with her primary doctor.
[2023-11-15 09:45] VITALS: BP 139/60; PULSE 67; RESP 20; TEMP 35.6
--- NOTE | 2023-11-15 12:29 | PCM.WC.PN ---
History of Present Illness Date of Service: 11/15/23 Chief Complaint: Follow-up on her right lower leg lateral area wound nonhealing since at least November. History of Wound: 72-year-old white female in [place] where she is living during the winter. She had a growth removed from her right lateral lower leg. She is still not sure if it is cancer or not. After finally getting through to the dermatology she found that they never sent a biopsy off. She saw her own doctor up here and she was referred to us from her and put on cephalexin. Recently she was taken off her Lasix and has terrible edema of her lower extremities and abdomen. Patient states she has gained 9 pounds Patient had been referred to dermatology and has returned after they did Mohs surgery on her right lateral lower leg. They state they got all the cancer out. We will reapply for EpiFix to restart her. We will also also refer to Dr. Galaviz for vascular problems she is having in her right lower leg. Her biggest complaint is that she is swelling a lot in her lower extremities. Worried about a blood clot Now she has breast cancer and is being seen by oncology at [place] for that. She has left total mastectomy on 06/12/2023. She states she is healing well from that. Progress of Wound: Wound is measuring larger than it was the last time I saw that it has not been seen for 2 weeks she has used up her last EpiFix this last week and has a donut shaped with the raised center and like a trough around that center. Still complains of severe pain and swelling in her lower legs. She is done with Dr. Galaviz he did open up all the veins but she had echocardiogram done yesterday for possible cardiac issues that could be why she is doing all the swelling. Too much compression on the lower leg just causes that swelling to go up and above her knee and her thigh and makes her miserable. Will use a single layer for compression until we figure out what is going on with the heart. Subjective Subjective Patient is agreeable with plan Objective Data Objective Data Now that the EpiFix is done we will flip her over to Fibracol moistened with foam dressing over top daily and a single layer Tubigrip on her leg and she felt that we felt good on her Vital Signs: Vital Signs Temp Pulse Resp BP 96.1 F L 67 20 H 139/60 H 11/15/23 09:45 11/15/23 09:45 11/15/23 09:45 11/15/23 09:45 Lab / Micro Data Attestation: I reviewed the patient's lab results. Physical Exam Const oriented x3 General Appearance: cooperative Exam Limitations: no limitations HEENT normocephalic Head and Scalp: normal to inspection Face and Sinus: normal facial exam Nose: external nose normal General Ear: hearing grossly impaired External Ear: external ears normal Mouth: oral and palatal mucosa normal Eyes PERRL General Eye: normal appearance of both eyes Neck full ROM General: normal visual inspection Resp normal respiratory effort Effort and Inspection: able to speak in complete sentences Auscultation: clear to auscultation bilaterally Cardio regular rate and regular rhythm Palpation: normal PMI Rate: regular rate Rhythm: regular rhythm GI Auscultation: normoactive bowel sounds Palpation: soft and no hepatosplenomegaly external exam normal Back/Spine Cervical Spine: cervical ROM normal Thoracic Spine / Upper Back: normal to inspection Lumbar Spine / Lower Back: normal to inspection Extremity normal to inspection General Extremity: normal exam except as noted Skin no rashes or lesions noted Neuro oriented x3 Psych Appearance: grossly normal Speech: normal speech Thought Content: normal thought content Judgement: judgement good Debridement Note Debridement Note Wound debrided: Right lateral ankle venous ulcer Type of Debridement: Excisional debridement Anesthesia Used: 5% Lidocaine Gel and Cetacaine Depth: Down to and including healthy tissue and in the subcutaneous layer Percentage of wound debrided: 100 Instrument Used: 5mm curette Tissue Removed: Fibrin and some slough Severity: Fat Layer Exposed Amount of bleeding with debridement: Mild Bleeding Controlled with: Compression and gauze Patient tolerated procedure: Patient tolerated procedure well Post-Debridement Measurements and Additional Note: Post-Debridement Measurements/Treatment - Nurse 1 - General Ulcer Assessment Start: 11/08/23 09:42 Freq: Status: Active Protocol: SAHIL Activity Type Activity Date Activity User E-sign Co-sign Detail Recorded Client Recorded Date Recorded By Document 11/08/23 09:52 DL Desktop 11/08/23 10:01 DL Document 11/15/23 09:45 DL Desktop 11/15/23 09:59 DL 11/08/23 11/15/23 09:52 09:45 - Today's Visit Information Type of service Follow-up Visit Follow-up Visit (Physician/ASSURANCE SPECIALIST (Physician/ASSURANCE SPECIALIST ) ) Arrival Mode Ambulatory Ambulatory,Cane Transfer Assistance None Patient Identification Verified (Name & Yes Yes ) Patient Requires Transmission-Based No No Precautions Safety Precautions Fall Prevention Vital Signs Temperature (97.8 F-99.1 F) 97.5 F L 96.1 F L Temperature Source Temporal Temporal Pulse Rate (60-100) 70 67 Pulse Location Monitor Monitor Respiratory Rate (12-18) 22 H 20 H Respiratory rate source Observation Observation Blood Pressure (90/60-120/80) 122/65 H 139/60 H Blood Pressure Mean (mm Hg) 84 86 Source Monitor Monitor History Since Last Visit- (Skip if this is Patient's initial visit) Have you changed medications since your No No last visit? Any new allergies or adverse reactions No No Had a fall/change in ADL's that may No No increase risk of falls Signs or symptoms of abuse and/or No No neglect since last visit Have you been in the hospital since your No No last visit? Has dressing in place as prescribed Yes Yes Has compression in place as prescribed No Yes Has offloadiing in place as prescribed N/A N/A Experienced any changes in pain level or No No management Left Footwear Slipper Regular Shoe Right Footwear Regular Shoe Regular Shoe Pain Scale: 0-10 Numeric Is Patient Pain Free? No Yes WC - Nurse 1 - General Ulcer Measurement Start: 11/08/23 09:42 Freq: Status: Active Protocol: Activity Type Activity Date Activity User E-sign Co-sign Detail Recorded Client Recorded Date Recorded By Document 11/08/23 09:52 DL Desktop 11/08/23 10:01 DL Document 11/15/23 09:45 DL Desktop 11/15/23 09:59 DL 11/08/23 11/15/23 09:52 09:45 Wound Center Nurse 1 #3 right lateral ankle -Current Size (cm) - Length 2.6 3 -Current Size (cm) - Width 2.8 3.2 -Current Size (cm) - Depth 0.2 0.3 -Total Square Cm 7.28 9.6 -Photo Taken Yes -Exudate Amt Medium Medium -Exudate Type Serosanguineous Serosanguineous -Wound Margin Distinct, Distinct, Outline Outline Attached Attached -Granulation Amt Small (1-33%) Small (1-33%) -Granulation Quality [place] -Necrosis Amt Large (67-100%) Large (67-100%) -Necrotic Tissue Type Adherent Slough Adherent Slough -Structure Exposed N/A N/A -Texture (Elif-wound Skin Appearance) Localized Edema Scarring ,Scarring -Moisture (Elif-wound Skin Appearance) No Abnormality Not Assessed -Color (Elif-wound Skin Appearance) Hemosiderin Hemosiderin Staining Staining -Temperature (Elif-wound Skin No Abnormality No Abnormality Appearance) (Pt Warm) (Pt Warm) -Tenderness on Palpation (Elif-wound Yes No Skin Appearance) -Ulcer Cleansing Soap and Water Soap and Water -Foul Odor after Cleansing No No -Anesthetic Used 5% Lidocaine 5% Lidocaine Gel Gel Right Calf (cm) 38.5 Right Ankle (cm) 24.3 WC - Nurse 2 - General Ulcer CM Notes Start: 11/08/23 09:42 Freq: Status: Active Protocol: Activity Type Activity Date Activity User E-sign Co-sign Detail Recorded Client Recorded Date Recorded By Document 11/08/23 10:23 [employer] 11/08/23 10:34 JF Document 11/15/23 10:04 MW Desktop 11/15/23 10:12 MW 11/08/23 11/15/23 10:23 10:04 Wound Center Nurse 2 #3 right lateral ankle -Time 10:23 10:07 -Correct Patient Yes Yes -Correct Side, Site, Position Yes Yes -Correct Procedure Yes Yes -Procedure Performed Yes Yes -Type of Procedure Debridement Debridement -Clinical Debridement Subcutaneous Subcutaneous -Tissue Removed Subcutaneous Subcutaneous -Post Debridement (cm) - Length 3.0 2.5 -Post Debridement (cm) - Width 2.7 3.0 -Post Debridement (cm) - Depth 0.3 0.3 -Total Square (Post) (cm) 8.10 7.50 -Area of Debridement (cm) - Length 3.0 2.5 -Area of Debridement (cm) - Width 2.7 3.0 -Total Square (Area) (cm) 8.10 7.50 -Tunneling No No -Undermining/Tunneling No No -Circular Undermining No No -Wound/Ulcer Outcome Not Healed Not Healed -Ulcer Cleansing Rinsed/ Rinsed/ Irrigated with Irrigated with Saline Saline -Foul Odor after Cleansing No No -Bioengineered Tissue Yes No -Type of Bioengineered Tissue Epifix -Expiration Date 07/05/28 -Product Lot Number [id number] -Percent Used 100 -Lot number of Saline Used [id number] -Bleeding Controlled with Pressure Pressure -Other Type of Bleeding Control cetacaine spray used for pain -Treatment Response Procedure Procedure Tolerated Well Tolerated Well -Offloading No No -Debridement - Subq, 1st 20sq cm No Yes -Apply Skin Sub - 1st 25 sq cm - Legs 1 -Epifix (per sq cm) 4 Pain Scale: 0-10 Numeric Is Patient Pain Free? Yes Yes - Nurse 3 - General Ulcer D/C NN Start: 11/08/23 09:42 Freq: Status: Active Protocol: Activity Type Activity Date Activity User E-sign Co-sign Detail Recorded Client Recorded Date Recorded By Document 11/08/23 10:57 GM Desktop 11/08/23 10:58 GM 11/08/23 10:57 Wound Care Center Nurse 3 #3 right lateral ankle -Ulcer Cleansing Not Cleansed -Foul Odor after Cleansing No -Negative Pressure Wound Therapy N/A -Primary Dressing Applied Mepilex Border -Other Dressing her personal aquacel extra -Mepilex Border 1 Pain Scale: 0-10 Numeric Is Patient Pain Free? Yes Teaching: Wound Center Compression Wraps & Stockings -Person Taught Patient -Teaching Method Discussion -Response to teaching Verbalize understanding WC - Visit Discharge Discharge Condition Stable Ambulatory Status Ambulatory,Cane Transportation Private Auto Medication Reconcilliation completed & Yes provided to patient/care provider Clinical Summary of Care Provided Yes Assessment/Plan Assessment/Plan (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: CODE(S): C44.721 - Squamous cell carcinoma of skin of unspecified lower limb, including hip QUALIFIERS: Laterality: right Qualified Code(s): C44.722 - Squamous cell carcinoma of skin of right lower limb, including hip PLAN: Wound resolved (2) Venous ulcer of ankle: CODE(S): I83.003 - Varicose veins of unspecified lower extremity with ulcer of ankle; L97.309 - Non-pressure chronic ulcer of unspecified ankle with unspecified severity QUALIFIERS: Varicose vein presence: with varicose veins Laterality: right Non-pressure ulcer stage: limited to breakdown of skin Qualified Code(s): I83.013 - 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 All surgeries are done with Dr. Galaviz for opening up venous veins (3) Non-pressure ulcer of right lower extremity: CODE(S): L97.919 - Non-pressure chronic ulcer of unspecified part of right lower leg with unspecified severity QUALIFIERS: Non-pressure ulcer stage: with fat layer exposed Qualified Code(s): L97.912 - Non-pressure chronic ulcer of unspecified part of right lower leg with fat layer exposed PLAN: Will apply Fibracol to wound base moistened cover with foam dressing daily Single-layer Tubigrip till after echocardiogram is evaluated Patient is to follow-up in 1 week (4) Nonhealing nonsurgical wound: CODE(S): T14.8XXA - Other injury of unspecified body region, initial encounter
[2023-11-22 09:42] VITALS: BP 128/50; PULSE 65; RESP 20; TEMP 35.7
--- NOTE | 2023-11-22 11:38 | PCM.WC.PN ---
History of Present Illness Date of Service: 11/22/23 Chief Complaint: Follow-up on her right lower leg lateral area wound nonhealing since at least November. History of Wound: 72-year-old white female in [place] where she is living during the winter. She had a growth removed from her right lateral lower leg. She is still not sure if it is cancer or not. After finally getting through to the dermatology she found that they never sent a biopsy off. She saw her own doctor up here and she was referred to us from her and put on cephalexin. Recently she was taken off her Lasix and has terrible edema of her lower extremities and abdomen. Patient states she has gained 9 pounds Patient had been referred to dermatology and has returned after they did Mohs surgery on her right lateral lower leg. They state they got all the cancer out. We will reapply for EpiFix to restart her. We will also also refer to Dr. Galaviz for vascular problems she is having in her right lower leg. Her biggest complaint is that she is swelling a lot in her lower extremities. Worried about a blood clot Now she has breast cancer and is being seen by oncology at [facility] for that. She has left total mastectomy on 06/12/2023. She states she is healing well from that. Progress of Wound: Wound is measured slightly larger than it was last week still giving her a lot of pain. She now has developed an opening on the medial side of the wound from where they did the procedure to clear open her veins. It is oozing fluid from edema. She has discussed the edema with her family doctor and she refuses to put her on any kind of water pill. Even though her kidney functions are normal. Cardiology is also cleared her and said that the edema is not from her heart her ejection fraction was 65% Subjective Subjective Patient is frustrated with family doctor and not getting better and the swelling in her lower legs. She has made arrangements to move back to [place] for a couple of months and will see wound center and her doctor down there. Objective Data Objective Data The wound on the right lateral leg is about the same it is not getting smaller the wound itself does not look good still gets a lot of slough in it. Will continue to use the Fibracol and Adaptic on both areas. The medial side of the leg wound is a small round opening from when she had her procedures done. Vital Signs: Vital Signs Temp Pulse Resp BP 96.3 F L 65 20 H 128/50 H 11/22/23 09:42 11/22/23 09:42 11/22/23 09:42 11/22/23 09:42 Lab / Micro Data Attestation: I reviewed the patient's lab results. Physical Exam Const oriented x3 General Appearance: cooperative Exam Limitations: no limitations HEENT normocephalic Head and Scalp: normal to inspection Face and Sinus: normal facial exam Nose: external nose normal General Ear: hearing grossly impaired External Ear: external ears normal Mouth: oral and palatal mucosa normal Eyes PERRL General Eye: normal appearance of both eyes Neck full ROM General: normal visual inspection Resp normal respiratory effort Effort and Inspection: able to speak in complete sentences Auscultation: clear to auscultation bilaterally Cardio regular rate and regular rhythm Palpation: normal PMI Rate: regular rate Rhythm: regular rhythm GI Auscultation: normoactive bowel sounds Palpation: soft and no hepatosplenomegaly external exam normal Back/Spine Cervical Spine: cervical ROM normal Thoracic Spine / Upper Back: normal to inspection Lumbar Spine / Lower Back: normal to inspection Extremity normal to inspection General Extremity: normal exam except as noted Skin no rashes or lesions noted Neuro oriented x3 Psych Appearance: grossly normal Speech: normal speech Thought Content: normal thought content Judgement: judgement good Debridement Note Debridement Note Wound debrided: Right lateral ankle venous ulcer Type of Debridement: Excisional debridement Anesthesia Used: 5% Lidocaine Gel and Cetacaine Depth: Down to and including healthy tissue and in the subcutaneous layer Percentage of wound debrided: 100 Instrument Used: 5mm curette Tissue Removed: Fibrin and some slough Severity: Fat Layer Exposed Amount of bleeding with debridement: Mild Bleeding Controlled with: Compression and gauze Patient tolerated procedure: Patient tolerated procedure well Post-Debridement Measurements and Additional Note: Post-Debridement Measurements/Treatment HERMILA - Nurse 1 - General Ulcer Assessment Start: 11/08/23 09:42 Freq: Status: Active Protocol: SAHIL Activity Type Activity Date Activity User E-sign Co-sign Detail Recorded Client Recorded Date Recorded By Document 11/08/23 09:52 DL Desktop 11/08/23 10:01 DL Document 11/15/23 09:45 DL Desktop 11/15/23 09:59 DL Document 11/22/23 09:42 DL Desktop 11/22/23 09:53 DL 11/08/23 11/15/23 11/22/23 09:52 09:45 09:42 WC - Today's Visit Information Type of service Follow-up Visit Follow-up Visit (Physician/TRAINING PROJECT MANAGER (Physician/TRAINING PROJECT MANAGER ) ) Arrival Mode Ambulatory Ambulatory,Cane Ambulatory,Cane Transfer Assistance None None Patient Identification Verified (Name & Yes Yes Yes ) Patient Requires Transmission-Based No No No Precautions Safety Precautions Fall Prevention Vital Signs Temperature (97.8 F-99.1 F) 97.5 F L 96.1 F L 96.3 F L Temperature Source Temporal Temporal Temporal Pulse Rate (60-100) 70 67 65 Pulse Location Monitor Monitor Monitor Respiratory Rate (12-18) 22 H 20 H 20 H Respiratory rate source Observation Observation Observation Blood Pressure (90/60-120/80) 122/65 H 139/60 H 128/50 H Blood Pressure Mean (mm Hg) 84 86 76 Source Monitor Monitor Monitor History Since Last Visit- (Skip if this is Patient's initial visit) Have you changed medications since your No No No last visit? Any new allergies or adverse reactions No No No Had a fall/change in ADL's that may No No No increase risk of falls Signs or symptoms of abuse and/or No No No neglect since last visit Have you been in the hospital since your No No No last visit? Has dressing in place as prescribed Yes Yes Yes Has compression in place as prescribed No Yes Yes Has offloadiing in place as prescribed N/A N/A N/A Experienced any changes in pain level or No No No management Left Footwear Slipper Regular Shoe Regular Shoe Right Footwear Regular Shoe Regular Shoe Regular Shoe Pain Scale: 0-10 Numeric Is Patient Pain Free? No Yes Yes - Nurse 1 - General Ulcer Measurement Start: 11/08/23 09:42 Freq: Status: Active Protocol: Activity Type Activity Date Activity User E-sign Co-sign Detail Recorded Client Recorded Date Recorded By Document 11/08/23 09:52 DL Desktop 11/08/23 10:01 DL Document 11/15/23 09:45 DL Desktop 11/15/23 09:59 DL Document 11/22/23 09:42 DL Desktop 11/22/23 09:53 DL 11/08/23 11/15/23 11/22/23 09:52 09:45 09:42 Wound Center Nurse 1 #6 R Med LE -Current Size (cm) - Length 10.5 -Current Size (cm) - Width 5 -Current Size (cm) - Depth 0.1 -Total Square Cm 52.5 -Photo Taken Yes -Exudate Amt Medium -Exudate Type Serosanguineous -Wound Margin Indistinct, Non -Visible -Granulation Amt None Present (0 %) -Necrosis Amt Large (67-100%) -Necrotic Tissue Type Adherent Slough -Structure Exposed N/A -Texture (Elif-wound Skin Appearance) Localized Edema ,Scarring -Moisture (Elif-wound Skin Appearance) Weeping -Color (Elif-wound Skin Appearance) Hemosiderin Staining -Temperature (Elif-wound Skin No Abnormality Appearance) (Pt Warm) -Ulcer Cleansing Soap and Water -Foul Odor after Cleansing No -Anesthetic Used 5% Lidocaine Gel #3 right lateral ankle -Current Size (cm) - Length 2.6 3 3.1 -Current Size (cm) - Width 2.8 3.2 3.7 -Current Size (cm) - Depth 0.2 0.3 0.5 -Total Square Cm 7.28 9.6 11.47 -Photo Taken Yes Yes -Exudate Amt Medium Medium Medium -Exudate Type Serosanguineous Serosanguineous Serosanguineous -Wound Margin Distinct, Distinct, Distinct, Outline Outline Outline Attached Attached Attached -Granulation Amt Small (1-33%) Small (1-33%) Medium (34-66%) -Granulation Quality [place] -Necrosis Amt Large (67-100%) Large (67-100%) Medium (34-66%) -Necrotic Tissue Type Adherent Slough Adherent Slough Adherent Slough -Structure Exposed N/A N/A N/A -Texture (Elif-wound Skin Appearance) Localized Edema Scarring Localized Edema ,Scarring ,Scarring -Moisture (Elif-wound Skin Appearance) No Abnormality Not Assessed No Abnormality -Color (Elif-wound Skin Appearance) Hemosiderin Hemosiderin Hemosiderin Staining Staining Staining -Temperature (Elif-wound Skin No Abnormality No Abnormality No Abnormality Appearance) (Pt Warm) (Pt Warm) (Pt Warm) -Tenderness on Palpation (Elif-wound Yes No No Skin Appearance) -Ulcer Cleansing Soap and Water Soap and Water Soap and Water -Foul Odor after Cleansing No No No -Anesthetic Used 5% Lidocaine 5% Lidocaine 5% Lidocaine Gel Gel Gel Right Calf (cm) 38.5 38.6 Right Ankle (cm) 24.3 25.3 WC - Nurse 2 - General Ulcer CM Notes Start: 11/08/23 09:42 Freq: Status: Active Protocol: Activity Type Activity Date Activity User E-sign Co-sign Detail Recorded Client Recorded Date Recorded By Document 11/08/23 10:23 JF Desktop 11/08/23 10:34 JF Document 11/15/23 10:04 MW Desktop 11/15/23 10:12 MW Document 11/22/23 10:06 MW Desktop 11/22/23 10:13 MW 11/08/23 11/15/23 11/22/23 10:23 10:04 10:06 Wound Center Nurse 2 #6 R Med LE -Time 10:07 -Correct Patient Yes -Correct Side, Site, Position Yes -Correct Procedure Yes -Procedure Performed Yes -Type of Procedure Debridement -Clinical Debridement Subcutaneous -Tissue Removed Subcutaneous -Post Debridement (cm) - Length 0.3 -Post Debridement (cm) - Width 0.4 -Post Debridement (cm) - Depth 0.2 -Total Square (Post) (cm) 0.12 -Area of Debridement (cm) - Length 0.3 -Area of Debridement (cm) - Width 0.4 -Total Square (Area) (cm) 0.12 -Tunneling No -Undermining/Tunneling No -Circular Undermining No -Wound/Ulcer Outcome Not Healed -Ulcer Cleansing Rinsed/ Irrigated with Saline -Foul Odor after Cleansing No -Bioengineered Tissue No -Bleeding Controlled with Pressure -Treatment Response Procedure Tolerated Well -Offloading No -Debridement - Subq, 1st 20sq cm No #3 right lateral ankle -Time 10:23 10:07 10:07 -Correct Patient Yes Yes Yes -Correct Side, Site, Position Yes Yes Yes -Correct Procedure Yes Yes Yes -Procedure Performed Yes Yes Yes -Type of Procedure Debridement Debridement Debridement -Clinical Debridement Subcutaneous Subcutaneous Subcutaneous -Tissue Removed Subcutaneous Subcutaneous Subcutaneous -Post Debridement (cm) - Length 3.0 2.5 3.0 -Post Debridement (cm) - Width 2.7 3.0 4.0 -Post Debridement (cm) - Depth 0.3 0.3 0.3 -Total Square (Post) (cm) 8.10 7.50 12.00 -Area of Debridement (cm) - Length 3.0 2.5 3.0 -Area of Debridement (cm) - Width 2.7 3.0 4.0 -Total Square (Area) (cm) 8.10 7.50 12.00 -Tunneling No No No -Undermining/Tunneling No No No -Circular Undermining No No No -Wound/Ulcer Outcome Not Healed Not Healed Not Healed -Ulcer Cleansing Rinsed/ Rinsed/ Rinsed/ Irrigated with Irrigated with Irrigated with Saline Saline Saline -Foul Odor after Cleansing No No No -Bioengineered Tissue Yes No No -Type of Bioengineered Tissue Epifix -Expiration Date 07/05/28 -Product Lot Number [id number] -Percent Used 100 -Lot number of Saline Used [id number] -Bleeding Controlled with Pressure Pressure Pressure -Other Type of Bleeding Control cetacaine spray used for pain -Treatment Response Procedure Procedure Procedure Tolerated Well Tolerated Well Tolerated Well -Offloading No No No -Debridement - Subq, 1st 20sq cm No Yes Yes -Apply Skin Sub - 1st 25 sq cm - Legs 1 -Epifix (per sq cm) 4 Pain Scale: 0-10 Numeric Is Patient Pain Free? Yes Yes Yes - Nurse 3 - General Ulcer D/C NN Start: 11/08/23 09:42 Freq: Status: Active Protocol: Activity Type Activity Date Activity User E-sign Co-sign Detail Recorded Client Recorded Date Recorded By Document 11/08/23 10:57 GM Desktop 11/08/23 10:58 GM Document 11/22/23 10:21 DL Desktop 11/22/23 10:23 DL 11/08/23 11/22/23 10:57 10:21 Wound Care Center Nurse 3 #6 R Med LE -Ulcer Cleansing Rinsed/ Irrigated with Saline -Foul Odor after Cleansing No -Primary Dressing Applied Fibracol Plus 4x4,Mepilex Border -Fibracol Plus 4x4 1 -Mepilex Border 1 #3 right lateral ankle -Ulcer Cleansing Not Cleansed Rinsed/ Irrigated with Saline -Foul Odor after Cleansing No No -Negative Pressure Wound Therapy N/A -Primary Dressing Applied Mepilex Border Mepilex Border -Other Dressing her personal aqaucel ex aquacel extra -Mepilex Border 1 1 Right -Other tubigrip Treatment Response Procedure Tolerated Well Pain Scale: 0-10 Numeric Is Patient Pain Free? Yes Yes Teaching: Wound Center Compression Wraps & Stockings -Person Taught Patient -Teaching Method Discussion -Response to teaching Verbalize understanding WC - Visit Discharge Discharge Condition Stable Stable Ambulatory Status Ambulatory,Cane Ambulatory Transportation Private Auto Private Auto Medication Reconcilliation completed & Yes provided to patient/care provider Clinical Summary of Care Provided Yes Notes: dressing applied per Reyes Mukherjee today in clinic Additional Wound Wound debrided: Medial wound by ankle from postoperative site Laterality: Right Type of Debridement: Excisional debridement Anesthesia Used: 4% Lidocaine Solution and 5% Lidocaine Gel Depth: Down to and including healthy tissue and in the subcutaneous layer Percentage of wound debrided: 100 Instrument Used: 5mm curette Tissue Removed: Fibrin Severity: Fat Layer Exposed Bleeding Controlled with: Compression and gauze Patient tolerated procedure: Patient tolerated procedure well Assessment/Plan Assessment/Plan (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: CODE(S): C44.721 - Squamous cell carcinoma of skin of unspecified lower limb, including hip QUALIFIERS: Laterality: right Qualified Code(s): C44.722 - Squamous cell carcinoma of skin of right lower limb, including hip PLAN: Wound resolved (2) Venous ulcer of ankle: CODE(S): I83.003 - Varicose veins of unspecified lower extremity with ulcer of ankle; L97.309 - Non-pressure chronic ulcer of unspecified ankle with unspecified severity QUALIFIERS: Varicose vein presence: with varicose veins Laterality: right Non-pressure ulcer stage: limited to breakdown of skin Qualified Code(s): I83.013 - 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 All surgeries are done with Dr. Galaviz for opening up venous veins (3) Non-pressure ulcer of right lower extremity: CODE(S): L97.919 - Non-pressure chronic ulcer of unspecified part of right lower leg with unspecified severity QUALIFIERS: Non-pressure ulcer stage: with fat layer exposed Qualified Code(s): L97.912 - Non-pressure chronic ulcer of unspecified part of right lower leg with fat layer exposed PLAN: Will apply Fibracol to wound base moistened cover with foam dressing daily Single-layer Tubigrip till after echocardiogram is evaluated Patient is to follow-up in 1 week (4) Nonhealing nonsurgical wound: CODE(S): T14.8XXA - Other injury of unspecified body region, initial encounter PLAN: Same treatment as above for the puncture wound on the medial side of her leg from surgery. Follow-up in 1 week
--- NOTE | 2023-11-27 08:41 | WC ---
3.13.24 RT LAT ANKLE
[2023-11-29 09:41] VITALS: BP 133/65; PULSE 72; RESP 20; TEMP 36.3
--- NOTE | 2023-11-29 11:11 | PCM.WC.PN ---
History of Present Illness Date of Service: 11/29/23 Chief Complaint: Follow-up on her right lower leg lateral area wound nonhealing since at least November. History of Wound: 72-year-old white female in [place] where she is living during the winter. She had a growth removed from her right lateral lower leg. She is still not sure if it is cancer or not. After finally getting through to the dermatology she found that they never sent a biopsy off. She saw her own doctor up here and she was referred to us from her and put on cephalexin. Recently she was taken off her Lasix and has terrible edema of her lower extremities and abdomen. Patient states she has gained 9 pounds Patient had been referred to dermatology and has returned after they did Mohs surgery on her right lateral lower leg. They state they got all the cancer out. We will reapply for EpiFix to restart her. We will also also refer to Dr. Galaviz for vascular problems she is having in her right lower leg. Her biggest complaint is that she is swelling a lot in her lower extremities. Worried about a blood clot Now she has breast cancer and is being seen by oncology at [place] for that. She has left total mastectomy on 06/12/2023. She states she is healing well from that. Progress of Wound: Wound is measured slightly larger than it was last week still giving her a lot of pain. She now has developed an opening on the medial side of the wound from where they did the procedure to clear open her veins. It is oozing fluid from edema. She has discussed the edema with her family doctor and was finally put on 8 days Lasix 40 mg. We will try to change up on her dressing change and change it to Aquacel extra moistened to her leg and to the medial side of her leg Objective Data Objective Data Same as above wound looks larger is very tender for her to touch still has some edema in the lower leg but better from last weeks after she started her Lasix. Will try changing to Aquacel extra Vital Signs: Vital Signs Temp Pulse Resp BP 97.4 F L 72 20 H 133/65 H 11/29/23 09:41 11/29/23 09:41 11/29/23 09:41 11/29/23 09:41 Physical Exam Const oriented x3 General Appearance: cooperative Exam Limitations: no limitations HEENT normocephalic Head and Scalp: normal to inspection Face and Sinus: normal facial exam Nose: external nose normal General Ear: hearing grossly impaired External Ear: external ears normal Mouth: oral and palatal mucosa normal Eyes PERRL General Eye: normal appearance of both eyes Neck full ROM General: normal visual inspection Resp normal respiratory effort Effort and Inspection: able to speak in complete sentences Auscultation: clear to auscultation bilaterally Cardio regular rate and regular rhythm Palpation: normal PMI Rate: regular rate Rhythm: regular rhythm GI Auscultation: normoactive bowel sounds Palpation: soft and no hepatosplenomegaly external exam normal Back/Spine Cervical Spine: cervical ROM normal Thoracic Spine / Upper Back: normal to inspection Lumbar Spine / Lower Back: normal to inspection Extremity normal to inspection General Extremity: normal exam except as noted Skin no rashes or lesions noted Neuro oriented x3 Psych Appearance: grossly normal Speech: normal speech Thought Content: normal thought content Judgement: judgement good Debridement Note Debridement Note Wound debrided: Right lateral ankle venous ulcer Type of Debridement: Excisional debridement Anesthesia Used: 5% Lidocaine Gel and Cetacaine Depth: Down to and including healthy tissue and in the subcutaneous layer Percentage of wound debrided: 100 Instrument Used: 5mm curette Tissue Removed: Fibrin and some slough Severity: Fat Layer Exposed Amount of bleeding with debridement: Mild Bleeding Controlled with: Compression and gauze Patient tolerated procedure: Patient tolerated procedure well Post-Debridement Measurements and Additional Note: Post-Debridement Measurements/Treatment - Nurse 1 - General Ulcer Assessment Start: 11/08/23 09:42 Freq: Status: Active Protocol: [email or web address] Activity Type Activity Date Activity User E-sign Co-sign Detail Recorded Client Recorded Date Recorded By Document 11/08/23 09:52 DL Desktop 11/08/23 10:01 DL Document 11/15/23 09:45 DL Desktop 11/15/23 09:59 DL Document 11/22/23 09:42 DL Desktop 11/22/23 09:53 DL Document 11/29/23 09:41 DL Desktop 11/29/23 09:50 DL 11/08/23 11/15/23 11/22/23 09:52 09:45 09:42 - Today's Visit Information Type of service Follow-up Visit Follow-up Visit (Physician/TELEHEALTH CASE MANAGER (Physician/TELEHEALTH CASE MANAGER ) ) Arrival Mode Ambulatory Ambulatory,Cane Ambulatory,Cane Transfer Assistance None None Patient Identification Verified (Name & Yes Yes Yes ) Patient Requires Transmission-Based No No No Precautions Safety Precautions Fall Prevention Vital Signs Temperature (97.8 F-99.1 F) 97.5 F L 96.1 F L 96.3 F L Temperature Source Temporal Temporal Temporal Pulse Rate (60-100) 70 67 65 Pulse Location Monitor Monitor Monitor Respiratory Rate (12-18) 22 H 20 H 20 H Respiratory rate source Observation Observation Observation Blood Pressure (90/60-120/80) 122/65 H 139/60 H 128/50 H Blood Pressure Mean (mm Hg) 84 86 76 Source Monitor Monitor Monitor History Since Last Visit- (Skip if this is Patient's initial visit) Have you changed medications since your No No No last visit? Any new allergies or adverse reactions No No No Had a fall/change in ADL's that may No No No increase risk of falls Signs or symptoms of abuse and/or No No No neglect since last visit Have you been in the hospital since your No No No last visit? Has dressing in place as prescribed Yes Yes Yes Has compression in place as prescribed No Yes Yes Has offloadiing in place as prescribed N/A N/A N/A Experienced any changes in pain level or No No No management Left Footwear Slipper Regular Shoe Regular Shoe Right Footwear Regular Shoe Regular Shoe Regular Shoe Pain Scale: 0-10 Numeric Is Patient Pain Free? No Yes Yes 11/29/23 09:41 WC - Today's Visit Information Type of service Follow-up Visit (Physician/TELEHEALTH CASE MANAGER ) Arrival Mode Ambulatory Transfer Assistance None Patient Identification Verified (Name & Yes ) Patient Requires Transmission-Based No Precautions Safety Precautions Vital Signs Temperature (97.8 F-99.1 F) 97.4 F L Temperature Source Temporal Pulse Rate (60-100) 72 Pulse Location Monitor Respiratory Rate (12-18) 20 H Respiratory rate source Observation Blood Pressure (90/60-120/80) 133/65 H Blood Pressure Mean (mm Hg) 87 Source Monitor History Since Last Visit- (Skip if this is Patient's initial visit) Have you changed medications since your No last visit? Any new allergies or adverse reactions No Had a fall/change in ADL's that may No increase risk of falls Signs or symptoms of abuse and/or No neglect since last visit Have you been in the hospital since your No last visit? Has dressing in place as prescribed Yes Has compression in place as prescribed No Has offloadiing in place as prescribed Yes Experienced any changes in pain level or No management Left Footwear Regular Shoe Right Footwear Regular Shoe Pain Scale: 0-10 Numeric Is Patient Pain Free? Yes WC - Nurse 1 - General Ulcer Measurement Start: 11/08/23 09:42 Freq: Status: Active Protocol: Activity Type Activity Date Activity User E-sign Co-sign Detail Recorded Client Recorded Date Recorded By Document 11/08/23 09:52 DL Desktop 11/08/23 10:01 DL Document 11/15/23 09:45 DL Desktop 11/15/23 09:59 DL Document 11/22/23 09:42 DL Desktop 11/22/23 09:53 DL Document 11/29/23 09:41 DL Desktop 11/29/23 09:50 DL 11/08/23 11/15/23 11/22/23 09:52 09:45 09:42 Wound Center Nurse 1 #6 R Med LE -Current Size (cm) - Length 10.5 -Current Size (cm) - Width 5 -Current Size (cm) - Depth 0.1 -Total Square Cm 52.5 -Photo Taken Yes -Exudate Amt Medium -Exudate Type Serosanguineous -Wound Margin Indistinct, Non -Visible -Granulation Amt None Present (0 %) -Granulation Quality -Necrosis Amt Large (67-100%) -Necrotic Tissue Type Adherent Slough -Structure Exposed N/A -Texture (Elif-wound Skin Appearance) Localized Edema ,Scarring -Moisture (Elif-wound Skin Appearance) Weeping -Color (Elif-wound Skin Appearance) Hemosiderin Staining -Temperature (Elif-wound Skin No Abnormality Appearance) (Pt Warm) -Tenderness on Palpation (Elif-wound Skin Appearance) -Ulcer Cleansing Soap and Water -Foul Odor after Cleansing No -Anesthetic Used 5% Lidocaine Gel #3 right lateral ankle -Current Size (cm) - Length 2.6 3 3.1 -Current Size (cm) - Width 2.8 3.2 3.7 -Current Size (cm) - Depth 0.2 0.3 0.5 -Total Square Cm 7.28 9.6 11.47 -Photo Taken Yes Yes -Exudate Amt Medium Medium Medium -Exudate Type Serosanguineous Serosanguineous Serosanguineous -Wound Margin Distinct, Distinct, Distinct, Outline Outline Outline Attached Attached Attached -Granulation Amt Small (1-33%) Small (1-33%) Medium (34-66%) -Granulation Quality [place] Red -Necrosis Amt Large (67-100%) Large (67-100%) Medium (34-66%) -Necrotic Tissue Type Adherent Slough Adherent Slough Adherent Slough -Structure Exposed N/A N/A N/A -Texture (Elif-wound Skin Appearance) Localized Edema Scarring Localized Edema ,Scarring ,Scarring -Moisture (Elif-wound Skin Appearance) No Abnormality Not Assessed No Abnormality -Color (Elif-wound Skin Appearance) Hemosiderin Hemosiderin Hemosiderin Staining Staining Staining -Temperature (Elif-wound Skin No Abnormality No Abnormality No Abnormality Appearance) (Pt Warm) (Pt Warm) (Pt Warm) -Tenderness on Palpation (Elif-wound Yes No No Skin Appearance) -Ulcer Cleansing Soap and Water Soap and Water Soap and Water -Foul Odor after Cleansing No No No -Anesthetic Used 5% Lidocaine 5% Lidocaine 5% Lidocaine Gel Gel Gel Right Calf (cm) 38.5 38.6 Right Ankle (cm) 24.3 25.3 11/29/23 09:41 Wound Center Nurse 1 #6 R [email or web address] LE -Current Size (cm) - Length 11 -Current Size (cm) - Width 3.5 -Current Size (cm) - Depth 0.1 -Total Square Cm 38.5 -Photo Taken -Exudate Amt Large -Exudate Type Serosanguineous -Wound Margin Indistinct, Non -Visible -Granulation Amt Small (1-33%) -Granulation Quality Red -Necrosis Amt Large (67-100%) -Necrotic Tissue Type Adherent Slough -Structure Exposed N/A -Texture (Elif-wound Skin Appearance) Localized Edema ,Scarring -Moisture (Elif-wound Skin Appearance) Weeping,Dry/ Scaly -Color (Elif-wound Skin Appearance) Hemosiderin Staining -Temperature (Elif-wound Skin No Abnormality Appearance) (Pt Warm) -Tenderness on Palpation (Elif-wound No Skin Appearance) -Ulcer Cleansing Soap and Water -Foul Odor after Cleansing No -Anesthetic Used 5% Lidocaine Gel #3 right lateral ankle -Current Size (cm) - Length 3 -Current Size (cm) - Width 3.2 -Current Size (cm) - Depth 0.3 -Total Square Cm 9.6 -Photo Taken -Exudate Amt Medium -Exudate Type Serosanguineous -Wound Margin Distinct, Outline Attached -Granulation Amt Medium (34-66%) -Granulation Quality Red -Necrosis Amt Medium (34-66%) -Necrotic Tissue Type Adherent Slough -Structure Exposed N/A -Texture (Elif-wound Skin Appearance) Localized Edema ,Scarring -Moisture (Elif-wound Skin Appearance) Dry/Scaly -Color (Elif-wound Skin Appearance) Hemosiderin Staining -Temperature (Elif-wound Skin No Abnormality Appearance) (Pt Warm) -Tenderness on Palpation (Elif-wound No Skin Appearance) -Ulcer Cleansing Soap and Water -Foul Odor after Cleansing No -Anesthetic Used 5% Lidocaine Gel Right Calf (cm) 37.6 Right Ankle (cm) 25 WC - Nurse 2 - General Ulcer CM Notes Start: 11/08/23 09:42 Freq: Status: Active Protocol: Activity Type Activity Date Activity User E-sign Co-sign Detail Recorded Client Recorded Date Recorded By Document 11/08/23 10:23 [employer] Desktop 11/08/23 10:34 JF Document 11/15/23 10:04 MW Desktop 11/15/23 10:12 MW Document 11/22/23 10:06 MW Desktop 11/22/23 10:13 MW Document 11/29/23 10:04 [facility] Desktop 11/29/23 10:10 F 11/08/23 11/15/23 11/22/23 10:23 10:04 10:06 Wound Center Nurse 2 #6 R Med LE -Time 10:07 -Correct Patient Yes -Correct Side, Site, Position Yes -Correct Procedure Yes -Procedure Performed Yes -Type of Procedure Debridement -Clinical Debridement Subcutaneous -Tissue Removed Subcutaneous -Post Debridement (cm) - Length 0.3 -Post Debridement (cm) - Width 0.4 -Post Debridement (cm) - Depth 0.2 -Total Square (Post) (cm) 0.12 -Area of Debridement (cm) - Length 0.3 -Area of Debridement (cm) - Width 0.4 -Total Square (Area) (cm) 0.12 -Tunneling No -Undermining/Tunneling No -Circular Undermining No -Wound/Ulcer Outcome Not Healed -Ulcer Cleansing Rinsed/ Irrigated with Saline -Foul Odor after Cleansing No -Bioengineered Tissue No -Bleeding Controlled with Pressure -Treatment Response Procedure Tolerated Well -Offloading No -Debridement - Subq, 1st 20sq cm No #3 right lateral ankle -Time 10:23 10:07 10:07 -Correct Patient Yes Yes Yes -Correct Side, Site, Position Yes Yes Yes -Correct Procedure Yes Yes Yes -Procedure Performed Yes Yes Yes -Type of Procedure Debridement Debridement Debridement -Clinical Debridement Subcutaneous Subcutaneous Subcutaneous -Tissue Removed Subcutaneous Subcutaneous Subcutaneous -Post Debridement (cm) - Length 3.0 2.5 3.0 -Post Debridement (cm) - Width 2.7 3.0 4.0 -Post Debridement (cm) - Depth 0.3 0.3 0.3 -Total Square (Post) (cm) 8.10 7.50 12.00 -Area of Debridement (cm) - Length 3.0 2.5 3.0 -Area of Debridement (cm) - Width 2.7 3.0 4.0 -Total Square (Area) (cm) 8.10 7.50 12.00 -Tunneling No No No -Undermining/Tunneling No No No -Circular Undermining No No No -Wound/Ulcer Outcome Not Healed Not Healed Not Healed -Ulcer Cleansing Rinsed/ Rinsed/ Rinsed/ Irrigated with Irrigated with Irrigated with Saline Saline Saline -Foul Odor after Cleansing No No No -Bioengineered Tissue Yes No No -Type of Bioengineered Tissue Epifix -Expiration Date 07/05/28 -Product Lot Number [id number] -Percent Used 100 -Lot number of Saline Used [id number] -Bleeding Controlled with Pressure Pressure Pressure -Other Type of Bleeding Control cetacaine spray used for pain -Treatment Response Procedure Procedure Procedure Tolerated Well Tolerated Well Tolerated Well -Offloading No No No -Debridement - Subq, 1st 20sq cm No Yes Yes -Apply Skin Sub - 1st 25 sq cm - Legs 1 -Epifix (per sq cm) 4 Pain Scale: 0-10 Numeric Is Patient Pain Free? Yes Yes Yes 11/29/23 10:04 Wound Center Nurse 2 #6 R Med LE -Time 10:04 -Correct Patient Yes -Correct Side, Site, Position Yes -Correct Procedure Yes -Procedure Performed Yes -Type of Procedure Debridement -Clinical Debridement Subcutaneous -Tissue Removed Subcutaneous -Post Debridement (cm) - Length 0.3 -Post Debridement (cm) - Width 0.3 -Post Debridement (cm) - Depth 0.2 -Total Square (Post) (cm) 0.09 -Area of Debridement (cm) - Length 0.3 -Area of Debridement (cm) - Width 0.3 -Total Square (Area) (cm) 0.09 -Tunneling No -Undermining/Tunneling No -Circular Undermining No -Wound/Ulcer Outcome Not Healed -Ulcer Cleansing Rinsed/ Irrigated with Saline -Foul Odor after Cleansing No -Bioengineered Tissue No -Bleeding Controlled with Pressure -Treatment Response Procedure Tolerated Well -Offloading -Debridement - Subq, 1st 20sq cm Yes #3 right lateral ankle -Time 10:05 -Correct Patient Yes -Correct Side, Site, Position Yes -Correct Procedure Yes -Procedure Performed Yes -Type of Procedure Debridement -Clinical Debridement Subcutaneous -Tissue Removed Subcutaneous -Post Debridement (cm) - Length 3.5 -Post Debridement (cm) - Width 4 -Post Debridement (cm) - Depth 0.3 -Total Square (Post) (cm) 14.0 -Area of Debridement (cm) - Length 3.5 -Area of Debridement (cm) - Width 4 -Total Square (Area) (cm) 14.0 -Tunneling No -Undermining/Tunneling No -Circular Undermining -Wound/Ulcer Outcome Not Healed -Ulcer Cleansing Rinsed/ Irrigated with Saline -Foul Odor after Cleansing No -Bioengineered Tissue No -Type of Bioengineered Tissue -Expiration Date -Product Lot Number -Percent Used -Lot number of Saline Used -Bleeding Controlled with Pressure -Other Type of Bleeding Control -Treatment Response Procedure Tolerated Well -Offloading -Debridement - Subq, 1st 20sq cm No -Apply Skin Sub - 1st 25 sq cm - Legs -Epifix (per sq cm) Pain Scale: 0-10 Numeric Is Patient Pain Free? Yes WC - Nurse 3 - General Ulcer D/C NN Start: 11/08/23 09:42 Freq: Status: Active Protocol: Activity Type Activity Date Activity User E-sign Co-sign Detail Recorded Client Recorded Date Recorded By Document 11/08/23 10:57 GM Desktop 11/08/23 10:58 GM Document 11/22/23 10:21 DL Desktop 11/22/23 10:23 DL Document 11/29/23 10:11 BMF Desktop 11/29/23 10:13 BMF 11/08/23 11/22/23 11/29/23 10:57 10:21 10:11 Wound Care Center Nurse 3 #6 R Med LE -Ulcer Cleansing Rinsed/ Rinsed/ Irrigated with Irrigated with Saline Saline -Foul Odor after Cleansing No No -Primary Dressing Applied Fibracol Plus Aquacel Extra, 4x4,Mepilex Mepilex Border Border -Other Dressing PER MW RN -Aquacel Extra 1 -Fibracol Plus 4x4 1 -Mepilex Border 1 1 #3 right lateral ankle -Ulcer Cleansing Not Cleansed Rinsed/ Rinsed/ Irrigated with Irrigated with Saline Saline -Foul Odor after Cleansing No No No -Negative Pressure Wound Therapy N/A -Primary Dressing Applied Mepilex Border Mepilex Border Aquacel Extra, Mepilex Border -Other Dressing her personal aqaucel ex PER MW RN aquacel extra -Aquacel Extra 0 -Mepilex Border 1 1 1 Right -Other tubigrip REFUSES TUBI. WEARS OWN COMPRESSION STOCKING Treatment Response Procedure Procedure Tolerated Well Tolerated Well Pain Scale: 0-10 Numeric Is Patient Pain Free? Yes Yes Yes Teaching: Wound Center Compression Wraps & Stockings -Person Taught Patient -Teaching Method Discussion -Response to teaching Verbalize understanding WC - Visit Discharge Discharge Condition Stable Stable Stable Ambulatory Status Ambulatory,Cane Ambulatory Ambulatory,Cane Transportation Private Auto Private Auto Private Auto Medication Reconcilliation completed & Yes provided to patient/care provider Clinical Summary of Care Provided Yes Notes: dressing applied per Reyes Mukherjee today in clinic Additional Wound Wound debrided: Medial wound by ankle from postoperative site Laterality: Right Type of Debridement: Excisional debridement Anesthesia Used: 4% Lidocaine Solution and 5% Lidocaine Gel Depth: Down to and including healthy tissue and in the subcutaneous layer Percentage of wound debrided: 100 Instrument Used: 5mm curette Tissue Removed: Fibrin Severity: Fat Layer Exposed Bleeding Controlled with: Compression and gauze Patient tolerated procedure: Patient tolerated procedure well Assessment/Plan Assessment/Plan (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: CODE(S): C44.721 - Squamous cell carcinoma of skin of unspecified lower limb, including hip QUALIFIERS: Laterality: right Qualified Code(s): C44.722 - Squamous cell carcinoma of skin of right lower limb, including hip PLAN: Wound resolved (2) Venous ulcer of ankle: CODE(S): I83.003 - Varicose veins of unspecified lower extremity with ulcer of ankle; L97.309 - Non-pressure chronic ulcer of unspecified ankle with unspecified severity QUALIFIERS: Varicose vein presence: with varicose veins Laterality: right Non-pressure ulcer stage: limited to breakdown of skin Qualified Code(s): I83.013 - 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 All surgeries are done with Dr. Galaviz for opening up venous veins (3) Non-pressure ulcer of right lower extremity: CODE(S): L97.919 - Non-pressure chronic ulcer of unspecified part of right lower leg with unspecified severity QUALIFIERS: Non-pressure ulcer stage: with fat layer exposed Qualified Code(s): L97.912 - Non-pressure chronic ulcer of unspecified part of right lower leg with fat layer exposed PLAN: Will apply Aquacel extra to wound base moistened cover with foam dressing daily Single-layer Tubigrip till after echocardiogram is evaluated Patient is to follow-up in 1 week (4) Nonhealing nonsurgical wound: CODE(S): T14.8XXA - Other injury of unspecified body region, initial encounter PLAN: Same treatment as above for the puncture wound on the medial side of her leg from surgery. Follow-up in 1 week
== END 2023-12-03 23:59 | disposition home or self-care (01) ==
LOC: WC 09:45
PROVIDERS: PCP Internal Medicine; Referring Provider Nurse Practitioner; Visit Provider Nurse Practitioner
DX: I83.013 Varicose veins of right lower extremity with ulcer of ankle (principal); L97.312 Non-pressure chronic ulcer of right ankle with fat layer exposed; C50.919 Malignant neoplasm of unspecified site of unspecified female breast; C44.722 Squamous cell carcinoma of skin of right lower limb, including hip; R60.0 Localized edema; M79.661 Pain in right lower leg; M79.662 Pain in left lower leg; R17 Unspecified jaundice
CPT/HCPCS: 11042; 15271; Q4186

== ENCOUNTER 2023-12-27 08:46 | Inpatient (IN) | payer MEDICARE, OTHER, SELFPAY ==
[2023-12-27] VITALS (9 sets, daily range): BP systolic 113–139; BP diastolic 56–82; PULSE 76–88; RESP 15–18; TEMP 35.9–36.9; O2SAT 95–100; BMI 26.1; BMI 25.2
--- NOTE | 2023-12-27 09:12 | EX.ED.DYSGE1 ---
HPI History of Present Illness Chief Complaint: GI Bleed Informant: patient and family Narrative Narrative: 73-year-old female presenting to the emergency room with black tarry stools and skin changes. Patient states she has a history of alcoholic cirrhosis. She states that about a week ago she was placed on prednisone about 60 mg a day for sores of her right leg. Patient states that on Monday she went to [employer] and picked up an eggroll chicken and some lo mein out of the warm food section. States she went home and ate it. She became very thirsty. On Monday she developed black tarry diarrhea that was quite frequent. She states that she began to swell. She states that during the night she did not have any further diarrhea but that it started again today. She notes that her eyes and her skin appear yellow. is currently in the hospital in [place] with a broken femur and is being transferred to a rehab facility today. She denies any abdominal pain but states that her abdomen is generally sore. Patient does take pantoprazole daily. 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 She states that this is the first year they did not go back. [facility] Medical History Abnormal mammogram of left breast Age-related physical debility Alcohol use Arthritis Back pain Bleeding ulcer Breast cancer Broken hip Cancer Carotid stenosis, right Cellulitis of right leg CHF (congestive heart failure) Cirrhosis Dermatitis Dyspnea Elevated liver enzymes Encounter for education GERD (gastroesophageal reflux disease) High cholesterol History of edema History of skin cancer History of ulceration Hx of staphylococcal infection Hypertension Hypokalemia Hyponatremia Hypotension Injury of back Left breast lump Left hip pain Non-smoker Open wound Osteoporosis Post-menopausal Preoperative evaluation to rule out surgical contraindication Pulmonary embolism Screening for thyroid disorder Skin cancer Squamous cell skin cancer Ulcer of right leg Umbilical hernia Varicose veins of both lower extremities Vertigo Wears glasses Home Medications pantoprazole 40 mg tablet,delayed release 40 mg PO DAILY GERD #90 tabs 04/22/22 [Rx Last Taken 12/25/23] compress.stocking,knee,reg,lrg #2 ea 05/09/23 [Rx Last Taken Unknown] acetaminophen 500 mg capsule 500 mg PO Q6H PRN pain 06/08/23 [History Last Taken Unknown] anastrozole 1 mg tablet 1 mg PO DAILY #90 tabs 10/19/23 [Rx Last Taken 12/25/23] potassium chloride 20 mEq tablet,extended release(part/cryst) 20 meq PO BID SUPPLEMENT #90 tabs 11/03/23 [Rx Last Taken 12/25/23] furosemide 40 mg tablet 40 mg PO DAILY DIURETIC #30 tabs 12/15/23 [Rx Last Taken 12/25/23] alendronate 70 mg tablet (Fosamax) 70 mg PO MO JOINT SUPPORT 12/27/23 [History Last Taken 12/25/23] calcium carbonate 600 mg-vitamin D3 5 mcg (200 unit) tablet (Calcium 600 + D(3)) 1 tab PO BID 12/27/23 [History Last Taken 12/25/23] nadolol 20 mg tablet 20 mg PO DAILY BP 12/27/23 [History Last Taken 12/25/23] spironolactone 50 mg tablet 50 mg PO DAILY 12/27/23 [History Last Taken 12/25/23] Allergy/AdvReac Type Severity Reaction Status Date / Time No Known Allergies Allergy Verified 12/27/23 08:47 Family History Mother Alzheimer disease Father Heart disease Diabetes Surgical History History of hysterectomy History of knee replacement History of left hip replacement History of left mastectomy Hx of tonsillectomy Status post Mohs surgery Social History Smoking Status: Never smoker alcohol intake: current substance use type: does not use ROS ROS ED Constitutional Constitutional ED: Reports chills; Denies fever(s) or weight loss Eyes Eyes: Denies change in vision or diplopia ENT ENT ED: Denies ear pain, rhinorrhea or sore throat Cardiovascular Cardiovascular: Denies chest pain, orthopnea, palpitations or racing heartbeat Respiratory/Chest Respiratory/Chest: Denies cough, dyspnea or orthopnea Gastrointestinal Gastrointestinal: Reports diarrhea; Denies abdominal pain, nausea or vomiting Genitourinary Genitourinary ED: Denies dysuria, hematuria or urinary frequency Musculoskeletal Musculoskeletal: Denies arthralgias or myalgias Integumentary Reports other Details: Yellowing of eyes and skin ; Denies abscess or rash Neurologic Neurologic: Denies headache(s) or weakness Psychiatric Psychiatric: Denies anxiety, depression, suicidal ideation or suicidal thoughts Endocrine Endocrinology: Denies polydipsia, polyphagia or polyuria Allergic/Immunologic Allergic/Immunologic ED: Denies mouth swelling, tongue swelling or urticaria EXAM Physical Exam Const Vital Signs: 12/27/23 08:47 12/27/23 10:46 12/27/23 12:00 Temperature 96.7 F L 98 F 98.1 F Temperature Source Temporal Oral Oral Pulse Rate 88 86 82 Respiratory Rate 16 15 16 Blood Pressure 137/74 H 139/82 H 128/64 H Blood Pressure Mean 95 101 85 Pulse Ox 100 97 98 Oxygen Delivery Method Room Air Room Air Room Air Positive well nourished and well developed General Appearance ED: well developed HEENT Reports normocephalic, head/scalp atraumatic and moist mucous membranes Eyes PERRL and EOMs intact bilaterally General Eye ED: Yes scleral icterus Neck no lymphadenopathy, supple and no JVD Resp normal respiratory effort and clear to auscultation bilaterally Cardio regular rate, regular rhythm and no murmurs GI normal to inspection, nondistended, normoactive bowel sounds and non-tender Palpation: soft Back/Spine no CVA tenderness and normal ROM Extremity Extremity Narrative: Right leg is compression wrapped to the level of the knee. Neuro oriented x3 and CN's II-XII intact bilaterally Sensorium / Orientation: alert Motor Exam: strength 5/5 throughout Psych mental status grossly normal Mood & Affect: Negative for depressed or tearful Skin no rashes or lesions noted and no wounds MDM MDM MDM Narrative Medical decision making narrative: White count 8.4 with a hemoglobin of 10.1 and platelet count of 102. INR 1.3 with a PTT of 32 BMP with a BUN of 36 creatinine 0.71. Total bilirubin 7.4 direct 4.5 AST 57 ALT 23 alk phos 218 and an albumin of 2.6. Urinalysis is negative for infection. Patient was placed on a Protonix drip after bolus as well as octreotide and Rocephin. CT of the abdomen pelvis was obtained which demonstrated liver cirrhosis with a mild amount of ascites. There is noted gallstones with gallbladder wall thickening however the patient is not tender in the right upper quadrant so I doubt cholecystitis. I spoke with Dr. Davila from gastroenterology. plan is admission to the hospital. At the current time she is hemodynamically stable and does not need blood transfusion. History & Record Review Discussion w/independent historian: Patient and Family Lab Data Attestation: I reviewed the patient's lab results. Labs: Laboratory Results - last 24 hr 12/27/23 12/27/23 09:25 09:30 WBC 8.4 RBC 2.78 L Hgb 10.1 L Hct 29.7 L MCV 106.8 H MCH 36.3 H MCHC 34.0 RDW Std Deviation 50.0 H RDW Coeff of [place] 12.8 Plt Count 102 L MPV 9.5 Immature Gran % (Auto) 0.500 Neut % (Auto) 73.0 H Lymph % (Auto) 19.2 [place] % (Auto) 6.7 Eos % (Auto) 0.4 Baso % (Auto) 0.2 Absolute Neuts (auto) 6.1 Absolute Lymphs (auto) 1.61 Nucleated RBC % 0 PT 15.7 H INR 1.3 APTT 32.0 Sodium 138 Potassium 3.2 L Chloride 100 Carbon Dioxide 30.0 Anion Gap 8 BUN 36 H Creatinine 0.71 Est GFR (MDRD) Af Amer 104 Est GFR (MDRD) Non-Af 86 BUN/Creatinine Ratio 50.8 H Glucose 99 Calcium 9.6 Total Bilirubin 7.40 H Direct Bilirubin 4.50 H AST 57 H ALT 23 Alkaline Phosphatase 218 H Total Protein 6.2 L Albumin 2.6 L Globulin 3.6 Lipase 31 Urine Color Yellow Urine Clarity Sl. Cloudy Urine pH 7.0 Ur Specific [place] 1.005 Urine Protein 15 H Urine Glucose (UA) Normal Urine Ketones 5 H Urine Occult Blood 10 H Urine Nitrite Negative Urine Bilirubin 1 H Urine Urobilinogen 4 H Ur Leukocyte Esterase 25 H Urine RBC 0-5 SEEN Urine WBC 0-5 SEEN Ur Squamous Epith Cells 0 SEEN Urine Bacteria 0 SEEN Urine Mucus 0 SEEN Radiography Diagnostic Testing: Clinical Impression(s) from Imaging Studies Abdomen/Pelvis CT 12/27/23 10:14 IMPRESSION: Findings suggestive of cirrhosis. Fatty infiltration of the liver. Small gallstones with mild thickening of the gallbladder wall. Small amount of ascites. Sigmoid diverticulosis. Small umbilical hernia containing fat. Electronically Signed: Nahum Kleley MD at 10:54 EDT , Management Discussion w/another healthcare provider: Hospitalist (Dr Roper) and St[employer] Processing Machine Operator (GI Dr Davila) Discharge Plan Dx/Rx/DC Orders Clinical Impression: Decompensated hepatic cirrhosis, Jaundice, Acute upper GI bleeding, Ascites, Thrombocytopenia Disposition Disposition: Acute Care Hospital [facility]
[2023-12-27 09:34] LABS: Bacteria 0 SEEN /hpf (None Seen); Mucous, Urine 0 SEEN /hpf (<or=2+); Squamous Epithelial Cells - UA 0 SEEN /hpf (5-10)
[2023-12-27 09:38] LABS: Color, Urine Yellow (Yellow); Glucose, Dipstick Normal (Normal); Ketone-Dipstick 5 mg/dl (Negative); Leukocyte Esterase-Dipstick 25 /ul (Negative); Nitrite-Dipstick Negative (Negative); Occult Blood-Urine 10 /ul (Negative); Protein-Dipstick 15 mg/dl (Negative); Specific Gravity, Urine 1.005 (1.002-1.030); Urine Bilirubin Dipstick 1 mg/dL (Negative); Urine Clarity Sl. Cloudy (Clear); Urine Urobilinogen 4 mg/dl (Normal)
[2023-12-27 09:43] LABS: Red Blood Cells-Urine 0-5 SEEN /hpf (0-5); White Blood Cells 0-5 SEEN /hpf (0-5)
[2023-12-27 09:52] LABS: Absolute Lymphocyte Count 1.61 X10^3/uL (0.83-4.51); Absolute Neutrophil Count 6.1 X10^3/uL (2.0-7.7); Basophil# 0.02 X10^3/uL; Basophil% 0.2 % (0-1); Eosinophil# 0.03 X10^3/uL; Eosinophils% 0.4 % (0-5); Hematocrit 29.7 % (37-47); Hemoglobin 10.1 g/dL (12.0-15.0); Lymphocyte # 1.61 X10^3/ul (0.83-4.51); Lymphocyte % 19.2 % (19-41); Mean Corpuscular Hgb 36.3 pg (27.0-32.0); Mean Corpuscular Volume 106.8 fL (81-99); Mean Platelet Vol. 9.5 fl (6.2-12.0); Monocyte# 0.56 X10^3/uL; Monocyte% 6.7 % (0-10); NRBC Flagged by Analyzer 0 % (0-5); Neutrophil # 6.13 X10^3/uL (2.7-7.7); Platelet Count 102 K/mm3 (150-450); RBC Distribution Width CV 12.8 % (11.6-14.6); Red Blood Count 2.78 M/mm3 (4.2-5.4); White Blood Count 8.4 K/mm3 (4.4-11.0)
[2023-12-27 09:55] LABS: International Normalized Ratio 1.3; Prothrombin Time (Protime)PT. 15.7 SECONDS (11.7-14.9)
[2023-12-27 10:02] LABS: AST(SGOT) 57 U/L (15-37); Alanine Aminotransfer ALT/SGPT 23 U/L (13-56); Albumin, Serum 2.6 g/dL (3.2-5.0); Alkaline Phosphatase 218 U/L (45-117); Anion Gap 8 (5-15); BUN 36 mg/dL (7-18); BUN/Creat Ratio 50.8 RATIO (10-20); Calcium,Total 9.6 mg/dL (8.5-10.1); Chloride 100 mmol/L (98-107); Creatinine, Serum 0.71 mg/dL (0.55-1.02); EST Glomerular Filtration Rate 86 mL/min (>60); Est Glom Filt Rate - Afr Amer 104 mL/min (>60); Globulin 3.6 g/dL (2.2-4.2); Glucose 99 mg/dL (74-106); Lipase 31 U/L (13-75); Potassium 3.2 mmol/L (3.5-5.1); Protein, Total 6.2 g/dL (6.4-8.2); Sodium Level 138 mmol/L (136-145)
[2023-12-27] MEDS: 0.9% Normal Saline (1000mL) 1,000 ML 125 ML IV (10:13)
--- NOTE | 2023-12-27 10:14 | CT_ITS ---
STUDY: CT ABDOMEN AND PELVIS WITH CONTRAST REASON FOR EXAM: Female, 73 years old. Painless jaundice. Diarrhea and black tarry stools. RADIATION DOSAGE (If Supplied By Facility): CTDIvol = ( 10.55 ) mGy, DLP = ( 524.93 ) mGycm TECHNIQUE: Transaxial images were obtained from the dome of the diaphragm to the symphysis pubis without oral contrast. IV 100mL Isovue-300 was administered. Sagittal and coronal images were reconstructed. Individualized dose optimization techniques were used for this CT. COMPARISON: None. FINDINGS: The visualized lung bases are unremarkable. Coronary artery calcification. There is a diffuse contour abnormality of the liver consistent with cirrhotic changes. Diffuse fatty infiltration of the liver. There are small gallstones. Mildly thickened gallbladder wall. Wedge-shaped hypodensity in the peripheral lateral aspect of the spleen. Possible focal splenic infarct should be ruled out. Normal pancreas. Small amount of perihepatic and pericolic splenic fluid in keeping with a small amount of ascites. Small amount of fluid is seen in the paracolic gutters bilaterally. Normal bilateral adrenal glands. Normal right kidney. Normal left kidney. There is a small hiatal hernia. Normal small intestine. There are multiple colonic diverticula consistent with diverticulosis. The appendix is visualized and appears normal. There is diffuse atherosclerotic calcification of the abdominal aorta and its major visceral branches, without a demonstrated aneurysm. Normal inferior vena cava. Normal retroperitoneum. Normal urinary bladder. There is absence of the uterus consistent with a prior hysterectomy. Tiny amount of fluid is seen in the pelvis. There is a small umbilical hernia containing fat. There are diffuse degenerative changes of the visualized lumbar spine. Dextroconvex scoliosis. Status post bilateral hip replacement. CT/Abdomen/Pelvis W IV Cont ONLY IMPRESSION: Findings suggestive of cirrhosis. Fatty infiltration of the liver. Small gallstones with mild thickening of the gallbladder wall. Small amount of ascites. Sigmoid diverticulosis. Small umbilical hernia containing fat. Electronically Signed: Nahum Kelley MD at 10:54 EDT ,
[2023-12-27] MEDS: Pantoprazole Sodium 80 MG in 0.9% Normal Saline (50mL Bag) 15 ML 420 MG IV BOLUS (10:36)
[2023-12-27] MEDS: Ceftriaxone 1 GM/50 ML BAG IV (11:48)
--- NOTE | 2023-12-27 12:08 | NURSING ---
DR BRAD BLAS
[2023-12-27] MEDS: Pantoprazole Sodium 80 MG in 0.9% Normal Saline (100mL Bag) 80 ML 10 MG CONT INF ×2 (12:16→21:42)
--- NOTE | 2023-12-27 13:12 | NURSING ---
PCU UGI BLEED, DECOMPENSATED CIRRHOSIS BRAD
--- NOTE | 2023-12-27 13:17 | HP.PCM.HOS_ITS ---
HPI - General General Date of Admission: 12/27/23 Date of Service: 12/27/23 Chief Complaint: Black tarry stool since yesterday, jaundice noticed yesterday HPI Narrative MARY ALICE GA, is a 73 F with history of alcoholic cirrhosis came to ED for black tarry stool started yesterday. She states she has been going from 8:30 AM to 8:30 PM every 15 to 20 minutes and felt very thirsty been drinking water and Gatorade. Patient also felt mildly dizzy and very weak. She noticed jaundiced yesterday but seems she has been jaundiced for some time. Patient also has abdominal swelling/edema ascites, gradually increasing for last 3 to 4 months. Mild generalized abdominal discomfort and tenderness but denies pain. No fever Patient is still drinking alcohol states of glass of wine with Sprite last drink last Monday. She did not tell me exact frequency or pattern drinking alcohol even on asking. [facility] Medical History Abnormal mammogram of left breast Age-related physical debility Alcohol use Arthritis Back pain Bleeding ulcer Breast cancer Broken hip Cancer Carotid stenosis, right Cellulitis of right leg CHF (congestive heart failure) Cirrhosis Dermatitis Dyspnea Elevated liver enzymes Encounter for education GERD (gastroesophageal reflux disease) High cholesterol History of edema History of skin cancer History of ulceration Hx of staphylococcal infection Hypertension Hypokalemia Hyponatremia Hypotension Injury of back Left breast lump Left hip pain Non-smoker Open wound Osteoporosis Post-menopausal Preoperative evaluation to rule out surgical contraindication Pulmonary embolism Screening for thyroid disorder Skin cancer Squamous cell skin cancer Ulcer of right leg Umbilical hernia Varicose veins of both lower extremities Vertigo Wears glasses Home Medications pantoprazole 40 mg tablet,delayed release 40 mg PO DAILY GERD #90 tabs 04/22/22 [Rx Last Taken 12/25/23] compress.stocking,knee,reg,lrg #2 ea 05/09/23 [Rx Last Taken Unknown] acetaminophen 500 mg capsule 500 mg PO Q6H PRN pain 06/08/23 [History Last Taken Unknown] anastrozole 1 mg tablet 1 mg PO DAILY #90 tabs 10/19/23 [Rx Last Taken 12/25/23] potassium chloride 20 mEq tablet,extended release(part/cryst) 20 meq PO BID SUPPLEMENT #90 tabs 11/03/23 [Rx Last Taken 12/25/23] furosemide 40 mg tablet 40 mg PO DAILY DIURETIC #30 tabs 12/15/23 [Rx Last Taken 12/25/23] alendronate 70 mg tablet (Fosamax) 70 mg PO MO JOINT SUPPORT 12/27/23 [History Last Taken 12/25/23] calcium carbonate 600 mg-vitamin D3 5 mcg (200 unit) tablet (Calcium 600 + D(3)) 1 tab PO BID 12/27/23 [History Last Taken 12/25/23] nadolol 20 mg tablet 20 mg PO DAILY BP 12/27/23 [History Last Taken 12/25/23] spironolactone 50 mg tablet 50 mg PO DAILY 12/27/23 [History Last Taken 12/25/23] Allergy/AdvReac Type Severity Reaction Status Date / Time No Known Allergies Allergy Verified 12/27/23 08:47 Family History Mother Alzheimer disease Father Heart disease Diabetes Surgical History History of hysterectomy History of knee replacement History of left hip replacement History of left mastectomy Hx of tonsillectomy Status post Mohs surgery Social History Smoking Status: Never smoker alcohol intake: current substance use type: does not use ROS ROS Narrative Constitutional: Reports fatigue and weakness. No fever. HEENT: Reports systems reviewed and no addt'l complaints, except as documented Respiratory/Chest: No acute shortness of breath or respiratory distress or wheezing. Mild dyspnea on exertion from weakness CVS: No chest pain pressure or tightness Gastrointestinal: Black tarry stool for last 2 days. Mild abdominal discomfort. Jaundice Genitourinary: Denies burning urination or new urinary tract symptoms Musculoskeletal: Denies acute joint pain or limited range of motion. No acute injury Neurologic: Denies seizure-like symptoms. skin: No ulcer. No rash Endocrinology: Reports systems reviewed and no addt'l complaints, except as documented Hematologic/Lymphatic: Reports systems reviewed and no addt'l complaints, except as documented Rest 14 ROS are negative except as mentioned in HPI Vital Signs Vital Signs Vital Signs: 12/27/23 08:47 12/27/23 10:46 12/27/23 12:00 Temperature 96.7 F L 98 F 98.1 F Temperature Source Temporal Oral Oral Pulse Rate 88 86 82 Respiratory Rate 16 15 16 Blood Pressure 137/74 H 139/82 H 128/64 H Blood Pressure Mean 95 101 85 Pulse Ox 100 97 98 Oxygen Delivery Method Room Air Room Air Room Air Physical Exam Narrative General: Alert, Oriented x3, Cooperative HEENT: Icterus present. Atraumatic, PERRLA, EOMI, Normocephalic Oral: Oral mucosa very dry. No Gingival or Mucosal Lesions/ Ulcerations Neck: Supple, No JVD, Negative Carotid Bruits Chest wall/Lungs: Air entry diminished in bilateral lung bases. No crepitatio n/rhonchi Cardiovascular: Regular rate, Regular Rhythm, Normal S1, Normal S2, No M/G/R Abdomen: Bowel Sounds Present, Soft, mild distention. Shifting dullness present. Mild tenderness on left lower quadrant but no rebound tenderness. : No dysuria. No renal angle tenderness. No suprapubic tenderness. Extremities: No edema, Capillary Refill Less than 3 Seconds Skin: No rashes, No breakdown Musculoskeletal: No Tenderness to Palpation of Joints or Extremities. ROM full Neurological: Cranial nerves II-XII grossly intact, DTR 2+/4. No acute focal neurological deficit. Psych/Mental Status: Flat affect, anxiety Results Lab / Micro Data 12/27/23 09:30 12/27/23 09:30 Labs: Laboratory Results - last 24 hr 12/27/23 09:25: Urine Color Yellow, Urine Clarity Sl. Cloudy, Urine pH 7.0, Ur Specific [place] 1.005, Urine Protein 15 H, Urine Glucose (UA) Normal, Urine Ketones 5 H, Urine Occult Blood 10 H, Urine Nitrite Negative, Urine Bilirubin 1 H, Urine Urobilinogen 4 H, Ur Leukocyte Esterase 25 H, Urine RBC 0-5 SEEN, Urine WBC 0-5 SEEN, Ur Squamous Epith Cells 0 SEEN, Urine Bacteria 0 SEEN, Urine Mucus 0 SEEN 12/27/23 09:30: WBC 8.4, RBC 2.78 L, Hgb 10.1 L, Hct 29.7 L, MCV 106.8 H, MCH 36.3 H, MCHC 34.0, RDW Std Deviation 50.0 H, RDW Coeff of Carly[place] 12.8, Plt Count 102 L, MPV 9.5, Immature Gran % (Auto) 0.500, Neut % (Auto) 73.0 H, Lymph % (Auto) 19.2, [place] % (Auto) 6.7, Eos % (Auto) 0.4, Baso % (Auto) 0.2, Absolute Neuts (auto) 6.1, Absolute Lymphs (auto) 1.61, Nucleated RBC % 0, PT 15.7 H, INR 1.3, APTT 32.0, Sodium 138, Potassium 3.2 L, Chloride 100, Carbon Dioxide 30.0, Anion Gap 8, BUN 36 H, Creatinine 0.71, Est GFR (MDRD) Af Amer 104, Est GFR (MDRD) Non-Af 86, BUN/Creatinine Ratio 50.8 H, Glucose 99, Calcium 9.6, Total Bilirubin 7.40 H, Direct Bilirubin 4.50 H, AST 57 H, ALT 23, Alkaline Phosphatase 218 H, Total Protein 6.2 L, Albumin 2.6 L, Globulin 3.6, Lipase 31 Micro: Microbiology 12/27/23 09:39 Stool Stool Occult Blood (KENDRA) - Final Occult Blood Positive Imaging Radiology Impression Abdomen/Pelvis CT 12/27/23 10:14 IMPRESSION: Findings suggestive of cirrhosis. Fatty infiltration of the liver. Small gallstones with mild thickening of the gallbladder wall. Small amount of ascites. Sigmoid diverticulosis. Small umbilical hernia containing fat. Electronically Signed: Nahum Kelley MD at 10:54 EDT , Assessment & Plan Assessment/Plan (1) Decompensated hepatic cirrhosis: (2) Acute upper GI bleeding: PLAN: Plan This is a 73-year-old female with history of decompensated alcoholic cirrhosis came for black tarry stool, jaundice, weak mild dizziness and very thirsty 1. Acute upper GI bleed likely due to esophageal variceal bleed/PHG: Patient is being admitted in PCU. Heart rate and blood pressure are controlled. No hypoxia. Patient is clinically dehydrated. She is being discharged with IV fluid normal saline, strict intake and output. H&H 10.1/29.7%.Baseline H&H 11.6/31% H&H every 6 hourly. IV PPI drip after bolus, octreotide drip and ceftriaxone. GI consulted. Plan for EGD tomorrow a.m. Mild hypokalemia, potassium getting replaced. Serum magnesium and phosphorus are 2. Decompensated alcoholic cirrhosis with ascites, portal hypertension, variceal bleed and jaundice: Liver chemistry reviewed. Platelet count 102,000. Liver chemistry shows AST 57 alkaline phosphatase 218, albumin 2.6. MELD sodium score 18 with INR 1.3, creatinine 0.71, sodium 138 and TB 7.4, direct 4.5. Estimated 90-day mortality 3 to 4%. 3. Chronic HFpEF with moderately severe pulmonary hypertension: 2D echo in November 2023 EF 65%, normal RV size and systolic function. LA mildly enlarged. RVSP 50 mL trivial TR suggestive of moderate pulmonary hypertension. Patient on furosemide and spironolactone at home which is held. 4. Hypertension, history of right leg nonpressure ulcer, right GSV chronic venous insufficiency. Patient had right GSV successful ablation in the past by Dr. Galaviz, no acute issues. BP normal. 5. Chronic GERD, hypokalemia, osteoporosis and history of breast cancer: Patient on anastrozole.Patient follows [facility]. On alendronate continued Living will/advanced directive/end of life care: Patient does not living will or advanced directive. Her is power of state's attorney for health. After d iscussion of benefits/risks procedures involved with full code, DNR CC arrest and DNR CC, the patient opted for full code. Patient does want artificial life support including intubation, tube feed, ventilator and/chest compression, central venous catheter, vasopressor and DC shock if needed Total time spent in [id number] encounter in discussion of advanced directive 17 minutes. Microbiology Past 72 Hours 12/27/23 09:39 Stool Stool Occult Blood (KENDRA) - Final Occult Blood Positive Laboratory Results 12/27/23 09:25: Urine Color Yellow, Urine Clarity Sl. Cloudy, Urine pH 7.0, Ur Specific [place] 1.005, Urine Protein 15 H, Urine Glucose (UA) Normal, Urine Ketones 5 H, Urine Occult Blood 10 H, Urine Nitrite Negative, Urine Bilirubin 1 H, Urine Urobilinogen 4 H, Ur Leukocyte Esterase 25 H, Urine RBC 0-5 SEEN, Urine WBC 0-5 SEEN, Ur Squamous Epith Cells 0 SEEN, Urine Bacteria 0 SEEN, Urine Mucus 0 SEEN 12/27/23 09:30: WBC 8.4, RBC 2.78 L, Hgb 10.1 L, Hct 29.7 L, MCV 106.8 H, MCH 36.3 H, MCHC 34.0, RDW Std Deviation 50.0 H, RDW Coeff of [place]arly[place] 12.8, Plt Count 10 2 L, MPV 9.5, Immature Gran % (Auto) 0.500, Neut % (Auto) 73.0 H, Lymph % (Auto) 19.2, [place] % (Auto) 6.7, Eos % (Auto) 0.4, Baso % (Auto) 0.2, Absolute Neuts (auto) 6.1, Absolute Lymphs (auto) 1.61, Nucleated RBC % 0, PT 15.7 H, INR 1.3, APTT 32.0, Sodium 138, Potassium 3.2 L, Chloride 100, Carbon Dioxide 30.0, Anion Gap 8, BUN 36 H, Creatinine 0.71, Est GFR (MDRD) Af Amer 104, Est GFR (MDRD) Non-Af 86, BUN/Creatinine Ratio 50.8 H, Glucose 99, Calcium 9.6, Total Bilirubin 7.40 H, Direct Bilirubin 4.50 H, AST 57 H, ALT 23, Alkaline Phosphatase 218 H, Total Protein 6.2 L, Albumin 2.6 L, Globulin 3.6, Lipase 31 Clinical Impression(s) from Imaging Studies Abdomen/Pelvis CT 12/27/23 10:14 IMPRESSION: Findings suggestive of cirrhosis. Fatty infiltration of the liver. Small gallstones with mild thickening of the gallbladder wall. Small amount of ascites. Sigmoid diverticulosis. Small umbilical hernia containing fat. Charges/Coding Visit Charges Inpatient E&M: 01908 Init Hosp L3 Procedures Hospitalists Procedures: 88263 Advncd Care Plan 30 Min
[2023-12-27] MEDS: Octreotide 0.5 MG in Dextrose 5%-Water (250mL Bag) 250 ML 12.5 MG CONT INF (13:19)
[2023-12-27] MEDS: Potassium Chloride Oral Tablet 20 MEQ 40 MEQ PO (13:40)
[2023-12-27 13:48] LABS: Magnesium 1.5 mg/dL (1.6-2.6); Phosphorus 3.5 mg/dL (2.5-4.9)
[2023-12-27 14:45] LABS: Hematocrit 27.1 % (37-47); Hemoglobin 9.2 g/dL (12.0-15.0)
[2023-12-27] MEDS: 0.9% Normal Saline (1000mL) 1,000 ML 100 ML IV (15:03)
[2023-12-27] MEDS: Acetaminophen 500 MG Tablet PO ×2 (15:17→21:42)
[2023-12-27] MEDS: Calcium Carb/Vitamin D 1 TABLET Tablet PO (16:40)
[2023-12-27 20:52] LABS: Hematocrit 24.8 % (37-47); Hemoglobin 8.7 g/dL (12.0-15.0)
[2023-12-28] VITALS (11 sets, daily range): BP systolic 93–141; BP diastolic 52–74; PULSE 64–78; RESP 12–18; TEMP 36.3–36.8; O2SAT 93–100; BMI 25.9
[2023-12-28] MEDS: 0.9% Normal Saline (1000mL) 1,000 ML 100 ML IV (00:32)
--- NOTE | 2023-12-28 02:15 | EKG12_ITS ---
Test Reason : pre op Blood Pressure : / mmHG Vent. Rate : 073 BPM Atrial Rate : 073 BPM P-R Int : 124 ms QRS Dur : 076 ms QT Int : 444 ms P-R-T Axes : 051 -13 003 degrees QTc Int : 489 ms Normal sinus rhythm Nonspecific ST and T wave abnormality Prolonged QT Abnormal ECG Confirmed by DARI ARAUJO, BARBARA ([id number]), videotape editor ZEKE JIMENEZ ([id number]) on 01/01/2024 10:10:49 AM Referred By: Confirmed By:ANDREY CHAPIN MD
[2023-12-28 02:42] LABS: Absolute Lymphocyte Count 0.94 X10^3/uL (0.83-4.51); Absolute Neutrophil Count 2.9 X10^3/uL (2.0-7.7); Basophil# 0.02 X10^3/uL; Basophil% 0.5 % (0-1); Eosinophil# 0.06 X10^3/uL; Eosinophils% 1.5 % (0-5); Hematocrit 23.3 % (37-47); Hemoglobin 7.9 g/dL (12.0-15.0); Lymphocyte # 0.94 X10^3/ul (0.83-4.51); Lymphocyte % 22.8 % (19-41); Mean Corp Hgb Conc 33.9 g/dL (32-36); Mean Corpuscular Hgb 36.4 pg (27.0-32.0); Mean Corpuscular Volume 107.4 fL (81-99); Mean Platelet Vol. 8.8 fl (6.2-12.0); Monocyte# 0.22 X10^3/uL; Monocyte% 5.3 % (0-10); NRBC Flagged by Analyzer 0 % (0-5); Neutrophil # 2.87 X10^3/uL (2.7-7.7); Neutrophil % 69.7 % (47-70); POSITIVE COUNT YES; Platelet Count 72 K/mm3 (150-450); RBC Distribution Width CV 13.4 % (11.6-14.6); RBC Distribution Width SD 52.9 fl (35.1-43.9); Red Blood Count 2.17 M/mm3 (4.2-5.4); White Blood Count 4.1 K/mm3 (4.4-11.0)
[2023-12-28 02:49] LABS: Differential Indicated SCAN CRITERIA MET; International Normalized Ratio 1.4; Prothrombin Time (Protime)PT. 16.9 SECONDS (11.7-14.9)
[2023-12-28 03:05] LABS: Magnesium 1.5 mg/dL (1.6-2.6); Phosphorus 3.2 mg/dL (2.5-4.9)
[2023-12-28 03:16] LABS: Anisocytosis 2+; Differential Comment SCANNED; Platelet Estimate MOD DEC (ADEQ)
[2023-12-28 03:17] LABS: Howell-Jolly Body RARE; Macrocytosis 2+; Ovalocyte RARE; Polychromasia 1+
[2023-12-28 03:21] LABS: AST(SGOT) 47 U/L (15-37); Alanine Aminotransfer ALT/SGPT 21 U/L (13-56); Albumin, Serum 2.1 g/dL (3.2-5.0); Alkaline Phosphatase 171 U/L (45-117); Anion Gap 6 (5-15); BUN 23 mg/dL (7-18); BUN/Creat Ratio 41.4 RATIO (10-20); Bilirubin, Direct 3.92 mg/dL (0.00-0.30); Chloride 111 mmol/L (98-107); Creatinine, Serum 0.56 mg/dL (0.55-1.02); EST Glomerular Filtration Rate 114 mL/min (>60); Est Glom Filt Rate - Afr Amer 138 mL/min (>60); Estimated Creatinine Clearance 59.75 ml/min; Globulin 2.9 g/dL (2.2-4.2); Glucose 98 mg/dL (74-106); Sodium Level 141 mmol/L (136-145)
--- NOTE | 2023-12-28 05:55 | US_ITS ---
STUDY: ABDOMINAL ULTRASOUND - RIGHT UPPER QUADRANT REASON FOR VISIT: Female, 73 years old cirrhosis with ascites, jaundice -- including spleen TECHNIQUE: Ultrasound evaluation of the right upper quadrant was performed with real-time and static doyle-scale imaging. TECHNICAL QUALITY: Adequate. COMPARISON: Comparison is made with prior CT scans abdomen and pelvis dated December 27, 2023. FINDINGS: Liver: The liver measures 18.6 cm. There is increased echogenicity consistent with fatty infiltration. The bile ducts are within normal limits. There is hepatic color flow. The direction of portal flow is hepatopetal. There is no demonstrated mass lesion. Gallbladder: Normal distended gallbladder. The gallbladder wall is thickened and measures 3.7 mm. There is a negative sonographic Gomez''s sign. There is no pericholecystic fluid. There is a solitary echogenic gallstone within the gallbladder. This measures 5 mm x 4 mm x 3 mm. Common Bile Duct (C.B.D.): The common bile duct measures 4.2 mm. Pancreas: Normal size of the head, body and tail of the pancreas. There is increased echogenicity of the pancreas. There is no demonstrated pancreatic mass or cyst. Right Kidney: Normal size of the right kidney. The right kidney measures 10.1 cm x 4.6 cm x 4.6 cm. Normal renal cortex. The right cortex measures 1.1 cm. There is no demonstrated renal mass or cyst. There is no right hydronephrosis. IMPRESSION: Hepatomegaly and fatty infiltration of the liver. Solitary gallstone. Mild gallbladder wall thickening. Electronically Signed: Nahum Kelley MD at 10:03 EDT , STUDY: ABDOMINAL ULTRASOUND - LEFT UPPER QUADRANT REASON FOR EXAM: Female, 73 years old. Cirrhosis with ascites, jaundice -- including spleen TECHNIQUE: Transabdominal ultrasound was performed with real-time and static doyle scale imaging. TECHNICAL QUALITY: Adequate. COMPARISON: None. FINDINGS: Spleen: Normal size of the spleen. The spleen measures 13.2 cm x 5.6 cm x 6.7 cm. Small amount of perisplenic fluid. US/Abdomen Limited IMPRESSION: Splenomegaly. Electronically Signed: Nahum Kelley MD at 10:05 EDT ,
[2023-12-28] MEDS: Pantoprazole Sodium 80 MG in 0.9% Normal Saline (100mL Bag) 80 ML 10 MG CONT INF ×2 (06:41→15:49)
--- NOTE | 2023-12-28 08:14 | PN.HOSP_ITS ---
Reason for Visit Reason for Visit: Diagnoses Hepatic failure, unspecified without coma (12/27/23) Unspecified cirrhosis of liver (12/27/23) Gastrointestinal hemorrhage, unspecified (12/27/23) Objective Data Objective Data Vital Signs: Vital Signs Temp Pulse Resp BP Pulse Ox O2 Del Method 98.3 F 73 12 124/54 H 97 Room Air 12/28/23 07:51 12/28/23 07:51 12/28/23 07:51 12/28/23 07:51 12/28/23 07:51 12/28/23 07:51 Oxygen Delivery Method Room Air Weight: 150 lb 12.739 oz Body Mass Index (BMI) 25.9 Intake & Output: Intake and Output for Last 24 Hours 12/26/23 12/27/23 12/28/23 23:59 23:59 23:59 Intake Total 1329.33 / 1329.33 1038.16 / 1038.16 Balance 1329.33 / 1329.33 1038.16 / 1038.16 Lab / Micro Data 12/28/23 08:35 12/28/23 02:30 Labs: Laboratory Results - last 24 hr 12/27/23 09:25: Urine Color Yellow, Urine Clarity Sl. Cloudy, Urine pH 7.0, Ur Specific [place] 1.005, Urine Protein 15 H, Urine Glucose (UA) Normal, Urine Ketones 5 H, Urine Occult Blood 10 H, Urine Nitrite Negative, Urine Bilirubin 1 H, Urine Urobilinogen 4 H, Ur Leukocyte Esterase 25 H, Urine RBC 0-5 SEEN, Urine WBC 0-5 SEEN, Ur Squamous Epith Cells 0 SEEN, Urine Bacteria 0 SEEN, Urine Mucus 0 SEEN 12/27/23 09:30: WBC 8.4, RBC 2.78 L, Hgb 10.1 L, Hct 29.7 L, MCV 106.8 H, MCH 36.3 H, MCHC 34.0, RDW Std Deviation 50.0 H, RDW Coeff of Carlyle 12.8, Plt Count 102 L, MPV 9.5, Immature Gran % (Auto) 0.500, Neut % (Auto) 73.0 H, Lymph % (Auto) 19.2, [place] % (Auto) 6.7, Eos % (Auto) 0.4, Baso % (Auto) 0.2, Absolute Neuts (auto) 6.1, Absolute Lymphs (auto) 1.61, Nucleated RBC % 0, PT 15.7 H, INR 1.3, APTT 32.0, Sodium 138, Potassium 3.2 L, Chloride 100, Carbon Dioxide 30.0, Anion Gap 8, BUN 36 H, Creatinine 0.71, Est GFR (MDRD) Af Amer 104, Est GFR (MDRD) Non-Af 86, BUN/Creatinine Ratio 50.8 H, Glucose 99, Calcium 9.6, Phosphorus 3.5, Magnesium 1.5 L, Total Bilirubin 7.40 H, Direct Bilirubin 4.50 H , AST 57 H, ALT 23, Alkaline Phosphatase 218 H, Total Protein 6.2 L, Albumin 2.6 L, Globulin 3.6, Lipase 31 12/27/23 14:35: Hgb 9.2 L, Hct 27.1 L 12/27/23 20:29: Hgb 8.7 L, Hct 24.8 L 12/28/23 02:30: WBC 4.1 L, RBC 2.17 L, Hgb 7.9 L, Hct 23.3 L, MCV 107.4 H, MCH 36.4 H, MCHC 33.9, RDW Std Deviation 52.9 H, RDW Coeff of Carlyle 13.4, Plt Count 72 L, MPV 8.8, Immature Gran % (Auto) 0.200, Neut % (Auto) 69.7, Lymph % (Auto) 22.8, [place] % (Auto) 5.3, Eos % (Auto) 1.5, Baso % (Auto) 0.5, Absolute Neuts (auto) 2.9, Absolute Lymphs (auto) 0.94, Nucleated RBC % 0, Differential Comment SCANNED, Diff Path Review May foll, Platelet Estimate MOD DEC, Polychromasia 1+, Anisocytosis 2+, Macrocytosis 2+, Ovalocytes RARE, [place] Bodies RARE, PT 16.9 H, INR 1.4, Sodium 141, Potassium 3.0 L, Chloride 111 H, Carbon Dioxide 24.0, Anion Gap 6, BUN 23 H, Creatinine 0.56, Estim Creat Clear Calc 59.75, Est GFR (MDRD) Af Amer 138, Est GFR (MDRD) Non-Af 114, BUN/Creatinine Ratio 41.4 H, Glucose 98, Calcium 8.0 L, Phosphorus 3.2, Magnesium 1.5 L, Total Bilirubin 5.60 H, Direct Bilirubin 3.92 H, AST 47 H, ALT 21, Alkaline Phosphatase 171 H, Total Protein 5.0 L, Albumin 2.1 L, Globulin 2.9 Micro: Microbiology 12/27/23 09:39 Stool Stool Occult Blood (KENDRA) - Final Occult Blood Positive Radiography Diagnostic Testing: Radiology Impression Abdomen/Pelvis CT 12/27/23 10:14 IMPRESSION: Findings suggestive of cirrhosis. Fatty infiltration of the liver. Small gallstones with mild thickening of the gallbladder wall. Small amount of ascites. Sigmoid diverticulosis. Small umbilical hernia containing fat. Electronically Signed: Nahum Kelley MD at 10:54 EDT , Physical Exam Narrative Seen and examined. Patient had drop in hemoglobin in the morning but repeat once about 8 g th erefore PRBC not given. Patient had EGD in the morning and esophageal varices were banded Physical exam General: Alert, Oriented x3, Cooperative HEENT: Icterus present/jaundice. Atraumatic, PERRLA, EOMI, Normocephalic Oral: Oral mucosa very dry. No Gingival or Mucosal Lesions/ Ulcerations Neck: Supple, No JVD, Negative Carotid Bruits Chest wall/Lungs: Air entry diminished in bilateral lung bases. No crepitation/rhonchi Cardiovascular: Regular rate, Regular Rhythm, Normal S1, Normal S2, No M/G/R Abdomen: Bowel Sounds Present, Soft, mild distention. Shifting dullness present. Mild ascites. No tenderness. : No dysuria. No renal angle tenderness. No suprapubic tenderness. Extremities: No edema, Capillary Refill Less than 3 Seconds Skin: No rashes, No breakdown Musculoskeletal: No Tenderness to Palpation of Joints or Extremities. ROM full Neurological: Cranial nerves II-XII grossly intact, DTR 2+/4. No acute focal neurological deficit. Psych/Mental Status: Flat affect, anxiety Assessment & Plan Assessment/Plan (1) Decompensated hepatic cirrhosis: (2) Acute upper GI bleeding: PLAN: Plan This is a 73-year-old female with history of decompensated alcoholic cirrhosis came for black tarry stool, jaundice, weak mild dizziness and very thirsty 1. Acute upper GI bleed likely due to esophageal variceal bleed/PHG: Patient is being admitted in PCU. Heart rate and blood pressure are controlled. No hypoxia. Patient is clinically dehydrated. She is being discharged with IV fluid normal saline, strict intake and output. H&H 10.1/29.7%.Baseline H&H 11.6/31% H&H every 6 hourly. IV PPI drip after bolus, octreotide drip and ceftriaxone. GI consulted. Plan for EGD tomorrow a.m. 12/27: Verbally discussed with Dr. Davila. Patient has esophageal varices and those were banded. Official report is still pending. 2. Acute blood loss anemia secondary to severe upper GI bleed: Patient baseline hemoglobin is around 11 to 12 g. She was admitted with hemoglobin 10.1 and dropped to 7.9 g/dL. IV fluid half-normal saline with 40 mEq of KCl at 100 mill per hour. Patient blood pressure is systolic 120s. Repeat H&H came 8.2/24.7% therefore no indication for PRBC transfusion yet. Hemodynamically blood pressure 127/64 heart rate 67. Electrolyte abnormality: Hypokalemia and hypomagnesemia: Patient on his spironolactone at home. Continued. IV magnesium sulfate ordered. 3. Decompensated alcoholic cirrhosis with ascites, portal hypertension, variceal bleed and jaundice: Liver chemistry reviewed. Platelet count 102,000. Liver chemistry shows AST 57 alkaline phosphatase 218, albumin 2.6. MELD sodium score 18 with INR 1.3, creatinine 0.71, sodium 138 and TB 7.4, direct 4.5. Estimated 90-day mortality 3 to 4%. 12/27: Liver chemistry shows improvement in bilirubin, T. bili 5.6, direct 3.92. AST ALT ratio, 2:1. Hypoalbuminemia. 3. Chronic HFpEF with moderately severe pulmonary hypertension: 2D echo in November 2023 EF 65%, normal RV size and systolic function. LA mildly enlarged. RVSP 50 mL trivial TR suggestive of moderate pulmonary hypertension. Patient on furosemide and spironolactone at home which is held. 4. Hypertension, history of right leg non pressure ulcer, right GSV chronic venous insufficiency. Patient had right GSV successful ablation in the past by Dr. Galaviz, no acute issues. BP normal. 5. Chronic GERD, hypokalemia, osteoporosis and history of breast cancer: Patient on anastrozole.Patient follows [facility]. On alendronate continued Living will/advanced directive/end of life care: Patient does not living will or advanced directive. Her is power of estate attorney for health. After discussion of benefits/risks procedures involved with full code, DNR CC arrest and DNR CC, the patient opted for full code. Patient does want artificial life support including intubation, tube feed, ventilator and/chest compression, central venous catheter, vasopressor and DC shock if needed Total time spent in [id number] encounter in discussion of advanced directive 17 minutes. Microbiology Past 72 Hours 12/27/23 09:39 Stool Stool Occult Blood (KENDRA) - Final Occult Blood Positive Laboratory Results 12/27/23 20:29: Hgb 8.7 L, Hct 24.8 L 12/28/23 02:30: WBC 4.1 L, RBC 2.17 L, Hgb 7.9 L, Hct 23.3 L, MCV 107.4 H, MCH 36.4 H, MCHC 33.9, RDW Std Deviation 52.9 H, RDW Coeff of Carlyle 13.4, Plt Count 72 L, MPV 8.8, Immature Gran % (Auto) 0.200, Neut % (Auto) 69.7, Lymph % (Auto) 22.8, [place] % (Auto) 5.3, Eos % (Auto) 1.5, Baso % (Auto) 0.5, Absolute Neuts (auto) 2.9, Absolute Lymphs (auto) 0.94, Nucleated RBC % 0, Differential Comment SCANNED, Diff Path Review May foll, Platelet Estimate MOD DEC, Polychromasia 1+, Anisocytosis 2+, Macrocytosis 2+, Ovalocytes RARE, [place] Bodies RARE, PT 16.9 H, INR 1.4, Sodium 141, Potassium 3.0 L, Chloride 111 H, Carbon Dioxide 24.0, Anion Gap 6, BUN 23 H, Creatinine 0.56, Estim Creat Clear Calc 59.75, Est GFR (MDRD) Af Amer 138, Est GFR (MDRD) Non-Af 114, BUN/Creatinine Ratio 41.4 H, Glucose 98, Calcium 8.0 L, Phosphorus 3.2, Magnesium 1.5 L, Total Bilirubin 5.60 H, Direct Bilirubin 3.92 H, AST 47 H, ALT 21, Alkaline Phosphatase 171 H, Total Protein 5.0 L, Albumin 2.1 L, Globulin 2.9 12/28/23 08:35: Hgb 8.2 L, Hct 24.7 L 12/28/23 08:45: Blood Type A POSITIVE, Antibody Screen NEGATIVE, Crossmatch See Detail M Clinical Impression(s) from Imaging Studies Abdomen/Pelvis CT 12/27/23 10:14 IMPRESSION: Findings suggestive of cirrhosis. Fatty infiltration of the liver. Small gallstones with mild thickening of the gallbladder wall. Small amount of ascites. Sigmoid diverticulosis. Small umbilical hernia containing fat. Charges/Coding Visit Charges Inpatient E&M: 57180 Subs Hosp L2
[2023-12-28 09:23] LABS: Hematocrit 24.7 % (37-47); Hemoglobin 8.2 g/dL (12.0-15.0)
[2023-12-28] MEDS: Octreotide 0.5 MG in Dextrose 5%-Water (250mL Bag) 250 ML 12.5 MG CONT INF (09:42)
[2023-12-28] MEDS: Potassium Chloride 40 MEQ in 0.45% Normal Saline 1,000 ML 100 MEQ IV ×2 (09:43→20:14)
[2023-12-28] MEDS: Magnesium Sulfate 2 GM in Dextrose 5%-Water (100mL Bag) 100 ML IV (09:46)
[2023-12-28] MEDS: Ceftriaxone 1 GM/50 ML BAG IV (09:49)
[2023-12-28] MEDS: Menthol/Lanolin/Calamine/Znox 113 GM Tube 1 APPLIC TOPICAL ×2 (10:55→20:17)
--- NOTE | 2023-12-28 12:04 | PCM.OP.PRO ---
Procedure Report Date of Procedure: 12/28/23 (6639) PROCEDURE: IV Placement under Ultrasound Guidance PERFORMED BY: VIANCA Ayers INDICATION: IV access required. Poor venous access and left limb restriction. TECHNIQUE: Patient identity was verified with two patient identifiers. Hands were sanitized. The patient was positioned supine with right arm at 90 degrees. The patient's upper arm vasculature was assessed using ultrasound, and the right basilic vein was externally marked. The vein was suitable for insertion of a 20 gauge 8 cm extended dwell catheter. The sterile kit was opened with additional supplies dropped in. Mask and prep gloves were donned. The underdrape was placed under the patient's arm. The site was prepped with chlorhexidine, and tourniquet was loosely applied. Prep gloves were discarded, and hands were sanitized. Sterile gloves were donned, and the patient's arm was draped. The sterile kit was assembled with needless connector and loop flushed with sterile normal saline. The right basilic vein was then accessed using dynamic ultrasound guidance, and the catheter advanced easily. 1 attempt was required. The tourniquet was released. The flushed loop and needless connector were attached. Blood return was easily aspirated. 10 ml sterile normal saline was delivered via pulsatile flush, and the loop was clamped prior to removal of the syringe to prevent back flow. Skin was prepped and followed by application of a stat-lock and a clear dressing was applied to secure the IV. The patient tolerated the procedure well.
--- NOTE | 2023-12-28 14:20 | CASEMGMT ---
RN CM Face to Face with patient for initial transition planning/care coordination assessment. RN CM introduced self and role at [facility]. Patient lying in bed, alert and oriented. Patient willing to participate in assessment and is able to answer all questions appropriately. Care providers, pharmacy, and demographics verified. PCP: Michael Specialists: Todd, Surgeon; Stephania Galaviz Preferred Pharmacy: [facility] Insurance: [facility], MMO Prescription Benefit: yes Living Will/HPOA: yes, Shiv Negron LNOK: , daughter Living Arrangements: Patient lives with but he is currently at a acute rehab in [place] after hip fracture, so patient is currently alone at home. Patient lives in a single story home with 2 steps and grab bars to enter the home. Patient states she is independent at home. Transportation: self, daughter, neighbor DME/HHC: Patient has raised toilet cane, rollator, grab bars at home. No previous HHC or SNF. Will monitor progress with therapy Patient wishes to discharge home, will monitor for needs at discharge. Patient states she has no further needs or concerns at this time. CM to follow for discharge planning needs that may arise. Disposition Plan: Patient to discharge home with family support and follow-up plans in place. Will monitor progress with therapy. Jenifer WOLF, RN, CM
--- NOTE | 2023-12-28 14:55 | CHAPLAIN ---
Type of Pastoral Visit _x__ Initial Visit ___ Follow-up Visit ___ On-call Visit ___ General Patient Visit ___ Spiritual Assessment ___ Family Conference ___ Bereavement ___ Rapid Response ___ Code Blue ___ Other (describe below) Pastoral Care Referral From _x__ Patient ___ Family ___ Nurse ___ Physician ___ Drafter [employer]ological ___ Roller Turner ___ Other (describe below) Sacrament/Intervention _x__ Active listening ___ Anointing ___ Methodist ___ Bereavement ___ Communion _x__ Cindy exploration ___ _x__ Life review _x__ Prayer ___ Reconciliation ___ Sacrament of Sick _x__ Supportive presence ___ Wedding ___ Other (describe below) Pastoral Comments patient had a procedure done earlier and is back in the room; pt is alert and is able to tell her story which is long; pt begins by saying 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 and it has been especially difficult the last three years; pt spouse is now in a rehab for another several weeks in the [facility]; pt has a number of health issues and she admits some of them are due to my drinking again over last three years; focus is on how the patient is coping and what other things she can do to build herself up; pt has one daughter in this area and several college age grandchildren; pt goal is get better health, stop drinking, and be able to take care of her and be together for a few more years; pt states that she is not particularly tenriism but does pray daily and her reads scriptures and booklets of cindy; pt says that her activities are limited due to focus on her spouse; pt is tearful at times and compassionate listening and affirmation is given; pt is open to prayer support and further visits;
--- NOTE | 2023-12-28 15:26 | WOUNDNOTE ---
wound photo: right medial lower leg
--- NOTE | 2023-12-28 15:26 | WOUNDNOTE ---
wound photo: right lateral lower leg
[2023-12-28 15:30] LABS: Pathologist Review Reviewed
[2023-12-28] MEDS: Acetaminophen 500 MG Tablet PO ×2 (15:57→22:34)
[2023-12-28] MEDS: Calcium Carb/Vitamin D 1 TABLET Tablet PO (18:38)
[2023-12-29] MEDS: Pantoprazole Sodium 80 MG in 0.9% Normal Saline (100mL Bag) 80 ML 10 MG CONT INF (01:29)
[2023-12-29 03:30] VITALS: BP 117/51; PULSE 66; RESP 18; TEMP 36.2; O2SAT 97
[2023-12-29] MEDS: Octreotide 0.5 MG in Dextrose 5%-Water (250mL Bag) 250 ML 12.5 MG CONT INF (05:18)
[2023-12-29] MEDS: Potassium Chloride 40 MEQ in 0.45% Normal Saline 1,000 ML 100 MEQ IV (05:19)
[2023-12-29 06:00] VITALS: BMI 27.0
[2023-12-29 06:56] LABS: Absolute Lymphocyte Count 0.36 X10^3/uL (0.83-4.51); Absolute Neutrophil Count 4.3 X10^3/uL (2.0-7.7); Hematocrit 24.3 % (37-47); Hemoglobin 8.2 g/dL (12.0-15.0); Lymphocyte # 0.36 X10^3/ul (0.83-4.51); Lymphocyte % 7.5 % (19-41); Mean Corp Hgb Conc 33.7 g/dL (32-36); Mean Corpuscular Hgb 36.8 pg (27.0-32.0); Mean Platelet Vol. 9.8 fl (6.2-12.0); Monocyte# 0.12 X10^3/uL; Monocyte% 2.5 % (0-10); NRBC Flagged by Analyzer 0 % (0-5); Neutrophil # 4.28 X10^3/uL (2.7-7.7); Neutrophil % 89.6 % (47-70); POSITIVE COUNT YES; POSITIVE DIFFERENTIAL YES; Platelet Count 73 K/mm3 (150-450); RBC Distribution Width CV 13.1 % (11.6-14.6); RBC Distribution Width SD 51.9 fl (35.1-43.9); Red Blood Count 2.23 M/mm3 (4.2-5.4); White Blood Count 4.8 K/mm3 (4.4-11.0)
[2023-12-29 07:25] LABS: Differential Indicated SCAN CRITERIA MET
[2023-12-29 07:37] VITALS: O2SAT 96
[2023-12-29 07:53] LABS: AST(SGOT) 66 U/L (15-37); Alanine Aminotransfer ALT/SGPT 25 U/L (13-56); Albumin, Serum 2.3 g/dL (3.2-5.0); Alkaline Phosphatase 174 U/L (45-117); Anion Gap 6 (5-15); BUN 13 mg/dL (7-18); BUN/Creat Ratio 24.6 RATIO (10-20); Bilirubin, Direct 3.69 mg/dL (0.00-0.30); Chloride 110 mmol/L (98-107); Creatinine, Serum 0.53 mg/dL (0.55-1.02); EST Glomerular Filtration Rate 121 mL/min (>60); Est Glom Filt Rate - Afr Amer 146 mL/min (>60); Estimated Creatinine Clearance 61.63 ml/min; Globulin 3.3 g/dL (2.2-4.2); Glucose 141 mg/dL (74-106); Magnesium 2.1 mg/dL (1.6-2.6); Potassium 4.3 mmol/L (3.5-5.1); Protein, Total 5.6 g/dL (6.4-8.2); Sodium Level 136 mmol/L (136-145)
--- NOTE | 2023-12-29 08:49 | DCINST_ITS ---
Discharge Instructions Follow Up Care Test Results: Test results from this visit will be discussed in further detail at your follow- up appointment, if applicable. Discharge Plan Admission Admit Date/Time: 12/27/23 12:32 Attending Provider: Harrison Roper Primary Care Provider: Ernesto Rodriguez Discharge Orders/Prescriptions Prescriptions: No Action acetaminophen 500 mg capsule 500 mg PO Q6H PRN (Reason: pain) spironolactone 50 mg tablet 50 mg PO DAILY calcium carbonate-vitamin D3 [Calcium 600 + D(3)] 600 mg-5 mcg (200 unit) tablet 1 tab PO BID alendronate [Fosamax] 70 mg tablet 70 mg PO MO nadolol 20 mg tablet 20 mg PO DAILY pantoprazole 40 mg tablet,delayed release (DR/EC) 40 mg PO DAILY Qty: 90 1RF (DME) compress.stocking,knee,reg,lrg Misc See Rx Instructions .MEDSUPPLY Qty: 2 1RF Rx Instructions: wear daily for venous insufficiency 20-30 mmHg anastrozole 1 mg tablet 1 mg PO DAILY Qty: 90 1RF potassium chloride 20 mEq tablet,ER particles/crystals 20 meq PO BID Qty: 90 1RF furosemide 40 mg tablet 40 mg PO DAILY Qty: 30 0RF Referrals / Follow Up: Ernesto Rodriguez MD [Primary Care Provider] -
[2023-12-29 09:03] VITALS: BP 163/87; PULSE 58; RESP 12; TEMP 36.8; O2SAT 100
[2023-12-29] MEDS: Spironolactone 50 MG Tablet PO (09:04)
[2023-12-29] MEDS: Calcium Carb/Vitamin D 1 TABLET Tablet PO (09:04)
[2023-12-29] MEDS: Anastrozole 1 MG TABLET PO (09:04)
[2023-12-29] MEDS: Ceftriaxone 1 GM/50 ML BAG IV (09:05)
[2023-12-29] MEDS: Nadolol 20 MG Tablet PO (09:05)
[2023-12-29] MEDS: Acetaminophen 500 MG Tablet PO ×2 (09:11→15:25)
[2023-12-29] MEDS: Furosemide 40 MG Tablet PO (11:57)
[2023-12-29] MEDS: Sodium Ferric Gluconat/Sucrose 250 MG in 0.9% Normal Saline (250mL Bag) 250 ML 135 MG IV (11:57)
[2023-12-29] MEDS: 0.9% Saline Lock 10 ML Syringe IV ×2 (11:57→21:14)
--- NOTE | 2023-12-29 13:12 | PCM.PN.HOSP ---
Reason for Visit Reason for Visit: Diagnoses Hepatic failure, unspecified without coma (12/27/23) Unspecified cirrhosis of liver (12/27/23) Gastrointestinal hemorrhage, unspecified (12/27/23) Objective Data Objective Data Vital Signs: Vital Signs Temp Pulse Resp BP Pulse Ox O2 Del Method 98.2 F 58 L 12 163/87 H 100 Room Air 12/29/23 09:03 12/29/23 09:03 12/29/23 09:03 12/29/23 09:03 12/29/23 09:03 12/29/23 09:03 Oxygen Delivery Method Room Air Weight: 157 lb 10.088 oz Body Mass Index (BMI) 27.0 Intake & Output: Intake and Output for Last 24 Hours 12/27/23 12/28/23 12/29/23 23:59 23:59 23:59 Intake Total 1329.33 / 1329.33 4096.40 / 4096.40 2105.42 / 2105.42 Balance 1329.33 / 1329.33 4096.40 / 4096.40 2105.42 / 2105.42 Lab / Micro Data 12/29/23 05:52 12/29/23 05:52 Labs: Laboratory Results - last 24 hr 12/28/23 02:30: Diff Path Review Reviewed 12/29/23 05:52: WBC 4.8, RBC 2.23 L, Hgb 8.2 L, Hct 24.3 L, MCV 109.0 H, MCH 36.8 H, MCHC 33.7, RDW Std Deviation 51.9 H, RDW Coeff of Carlyle 13.1, Plt Count 73 L, MPV 9.8, Immature Gran % (Auto) 0.400, Neut % (Auto) 89.6 H, Lymph % (Auto) 7.5 L, [place] % (Auto) 2.5, Eos % (Auto) 0.0, Baso % (Auto) 0.0, Absolute Neuts (auto) 4.3, Absolute Lymphs (auto) 0.36 L, Nucleated RBC % 0, Sodium 136, Potassium 4.3, Chloride 110 H, Carbon Dioxide 20.0 L, Anion Gap 6, BUN 13, Creatinine 0.53 L, Estim Creat Clear Calc 61.63, Est GFR (MDRD) Af Amer 146, Est GFR (MDRD) Non-Af 121, BUN/Creatinine Ratio 24.6 H, Glucose 141 H, Calcium 8.0 L, Magnesium 2.1, Total Bilirubin 4.80 H, Direct Bilirubin 3.69 H, AST 66 H, ALT 25, Alkaline Phosphatase 174 H, Total Protein 5.6 L, Albumin 2.3 L, Globulin 3.3 Micro: Microbiology 12/27/23 09:39 Stool Stool Occult Blood (KENDRA) - Final Occult Blood Positive Physical Exam Narrative Seen and examined. No further GI patient had EGD in the morning and esophageal varices were banded Physical exam General: Alert, Oriented x3, Cooperative HEENT: Icterus present/jaundice. Atraumatic, PERRLA, EOMI, Normocephalic Oral: Oral mucosa very dry. No Gingival or Mucosal Lesions/ Ulcerations Neck: Supple, No JVD, Negative Carotid Bruits Chest wall/Lungs: Air entry diminished in bilateral lung bases. No crepitation/rhonchi Cardiovascular: Regular rate, Regular Rhythm, Normal S1, Normal S2, No M/G/R Abdomen: Bowel Sounds Present, Soft, mild distention. Shifting dullness present. Mild ascites. No tenderness. : No dysuria. No renal angle tenderness. No suprapubic tenderness. Extremities: No edema, Capillary Refill Less than 3 Seconds Skin: No rashes, No breakdown Musculoskeletal: No Tenderness to Palpation of Joints or Extremities. ROM full Neurological: Cranial nerves II-XII grossly intact, DTR 2+/4. No acute focal neurological deficit. Psych/Mental Status: Flat affect, anxiety Assessment & Plan Assessment/Plan (1) Decompensated hepatic cirrhosis: (2) Acute upper GI bleeding: PLAN: Plan This is a 73-year-old female with history of decompensated alcoholic cirrhosis came for black tarry stool, jaundice, weak mild dizziness and very thirsty 1. Acute upper GI bleed likely due to esophageal variceal bleed/PHG: Patient is being admitted in PCU. Heart rate and blood pressure are controlled. No hypoxia. Patient is clinically dehydrated. She is being discharged with IV fluid normal saline, strict intake and output. H&H 10.1/29.7%.Baseline H&H 11.6/31% H&H every 6 hourly. IV PPI drip after bolus, octreotide drip and ceftriaxone. GI consulted. Plan for EGD tomorrow a.m. 12/27: Verbally discussed with Dr. Davila. Patient has esophageal varices and those were banded. Official report is still pending. 12/28: Hemodynamically patient remained stable blood pressure went up to 163/87 therefore octreotide drip discontinued. Pantoprazole PPI IV infusion changed to bolus 40 mill every 12 hourly 2. Acute blood loss anemia secondary to severe upper GI bleed: Patient baseline hemoglobin is around 11 to 12 g. She was admitted with hemoglobin 10.1 and dropped to 7.9 g/dL. IV fluid half-normal saline with 40 mEq of KCl at 100 mill per hour. Patient blood pressure is systolic 120s. Repeat H&H came 8.2/24.7% therefore no indication for PRBC transfusion yet. Hemodynamically blood pressure 127/64 heart rate 67. 12/28: H&H 8.2/24.3%. IV iron infusion ordered Electrolyte abnormality: Hypokalemia and hypomagnesemia: Patient on his spironolactone at home. Continued. IV magnesium sulfate ordered. 12/28: Repeat labs shows magnesium normal, phosphorus normal and potassium 4.3 normal therefore electrolyte abnormality resolved. 3. Decompensated alcoholic cirrhosis with ascites, portal hypertension, variceal bleed and jaundice: Liver chemistry reviewed. Platelet count 102,000. Liver chemistry shows AST 57 alkaline phosphatase 218, albumin 2.6. MELD sodium score 18 with INR 1.3, creatinine 0.71, sodium 138 and TB 7.4, direct 4.5. Estimated 90-day mortality 3 to 4%. 12/27: Liver chemistry shows improvement in bilirubin, T. bili 5.6, direct 3.92. AST ALT ratio, 2:1. Hypoalbuminemia. 12/28: Liver chemistry shows further improvement in total bilirubin direct bilirubin. 3. Chronic HFpEF with moderately severe pulmonary hypertension: 2D echo in November 2023 EF 65%, normal RV size and systolic function. LA mildly enlarged. RVSP 50 mL trivial TR suggestive of moderate pulmonary hypertension. Patient on furosemide and spironolactone at home which is held. 12/28: Furosemide spironolactone resumed. 4. Hypertension, history of right leg non pressure ulcer, right GSV chronic venous insufficiency. Patient had right GSV successful ablation in the past by Dr. Galaviz, no acute issues. BP normal. 5. Chronic GERD, hypokalemia, osteoporosis and history of breast cancer: Patient on anastrozole.Patient follows [facility]. On alendronate continued Living will/advanced directive/end of life care: Patient does not living will or advanced directive. 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 After discussion of benefits/risks procedures involved with full code, DNR CC arrest and DNR CC, the patient opted for full code. Patient does want artificial life support including intubation, tube feed, ventilator and/chest compression, central venous catheter, vasopressor and DC shock if needed Total time spent in [id number] encounter in discussion of advanced directive 17 minutes. Clinical Impression(s) from Imaging Studies Abdomen/Pelvis CT 12/27/23 10:14 IMPRESSION: Findings suggestive of cirrhosis. Fatty infiltration of the liver. Small gallstones with mild thickening of the gallbladder wall. Small amount of ascites. Sigmoid diverticulosis. Small umbilical hernia containing fat. Charges/Coding Visit Charges Inpatient E&M: 11137 Subs Hosp L2
[2023-12-29 14:02] VITALS: BP 121/57; PULSE 63; RESP 12; TEMP 36.1; O2SAT 98
--- NOTE | 2023-12-29 16:02 | CASEMGMT ---
RN CM in to discuss needs at discharge. RN CM progress with therapy, contact guard 10-15 feet. Patient inquired about [facility], [facility], and TCU at discharge. RN CM informed patient regarding different levels of care. Patient would like to see how she does with therapy tomorrow. A list of HHC providers including quality and resource use data and consistent with the patient?s preferred geographical region, medical needs, and insurance network were provided from [facility]. CM/SW to follow this patient and plan for a safe discharge.
--- NOTE | 2023-12-29 17:43 | PN.GI_ITS ---
Subjective Subjective Patient underwent an EGD for upper GI bleed. She was covered to have grade 3 esophageal varices and underwent banding of esophageal varices. She was also discovered to have severe portal gastropathy and no acute pathology in the small bowel except for some mild ulcerations thought to be secondary to bile duodenit is. She is tolerating a diet without any problem and would like of her diet advanced. Objective Data Objective Data Vital Signs: Vital Signs Temp Pulse Resp BP Pulse Ox O2 Del Method 97.0 F L 63 12 121/57 H 98 Room Air 12/29/23 14:02 12/29/23 14:02 12/29/23 14:02 12/29/23 14:02 12/29/23 14:02 12/29/23 14:02 Oxygen Delivery Method Room Air Weight: 157 lb 10.088 oz Body Mass Index (BMI) 27.0 Intake & Output: Intake and Output for Last 24 Hours 12/27/23 12/28/23 12/29/23 23:59 23:59 23:59 Intake Total 1329.33 / 1329.33 4096.40 / 4096.40 3095.42 / 3095.42 Balance 1329.33 / 1329.33 4096.40 / 4096.40 3095.42 / 3095.42 Lab / Micro Data 12/29/23 05:52 12/29/23 05:52 Labs: Laboratory Results - last 24 hr 12/29/23 05:52: WBC 4.8, RBC 2.23 L, Hgb 8.2 L, Hct 24.3 L, MCV 109.0 H, MCH 36.8 H, MCHC 33.7, RDW Std Deviation 51.9 H, RDW Coeff of Carlyle 13.1, Plt Count 73 L, MPV 9.8, Immature Gran % (Auto) 0.400, Neut % (Auto) 89.6 H, Lymph % (Auto) 7.5 L, [place]on % (Auto) 2.5, Eos % (Auto) 0.0, Baso % (Auto) 0.0, Absolute Neuts (auto) 4.3, Absolute Lymphs (auto) 0.36 L, Nucleated RBC % 0, Sodium 136, Potassium 4.3, Chloride 110 H, Carbon Dioxide 20.0 L, Anion Gap 6, BUN 13, Creatinine 0.53 L, Estim Creat Clear Calc 61.63, Est GFR (MDRD) Af Amer 146, Est GFR (MDRD) Non-Af 121, BUN/Creatinine Ratio 24.6 H, Glucose 141 H, Calcium 8.0 L , Magnesium 2.1, Total Bilirubin 4.80 H, Direct Bilirubin 3.69 H, AST 66 H, ALT 25, Alkaline Phosphatase 174 H, Total Protein 5.6 L, Albumin 2.3 L, Globulin 3.3 Micro: Microbiology 12/27/23 09:39 Stool Stool Occult Blood (KENDRA) - Final Occult Blood Positive Assessment & Plan Assessment/Plan (1) Decompensated hepatic cirrhosis: (2) Acute upper GI bleeding: PLAN: Plan This is a 73-year-old female with history of decompensated alcoholic cirrhosis came for black tarry stool, jaundice, weak mild dizziness and very thirsty Acute upper GI bleed likely due to esophageal variceal bleed/PHG: P. H&H 10.1/29.7%.Baseline H&H 11.6/31% H&H every 6 hourly. IV PPI drip after bolus, octreotide drip and ceftriaxone. GI consulted. Status post EGD with banding of esophageal varices. Patient has been on octreotide, PPI drip, ceftriaxone and is doing well. Hemoglobin seems to be stable. Can transition to oral PPI and stop the octreotide drip Acute blood loss anemia secondary to severe upper GI bleed: Patient baseline hemoglobin is around 11 to 12 g. She was admitted with hemoglobin 10.1 and dropped to 7.9 g. Decompensated alcoholic cirrhosis with ascites, portal hypertension, variceal bleed and jaundice: Liver chemistry reviewed. Platelet count 102,000. Liver chemistry shows AST 57 alkaline phosphatase 218, albumin 2.6. MELD sodium score 18 with INR 1.3, creatinine 0.71, sodium 138 and TB 7.4, direct 4.5. Estimated 90-day mortality 3 to 4%. 12/27: Liver chemistry shows improvement in bilirubin, T. bili 5.6, direct 3.92. AST ALT ratio, 2:1. Hypoalbuminemia. 12/28: Liver chemistry shows further improvement in total bilirubin direct bilirubin. Charges/Coding Visit Charges Inpatient E&M: 60296 Subs Hosp L3
[2023-12-29 20:42] VITALS: BP 112/56; PULSE 60; RESP 16; TEMP 36.4; O2SAT 99
[2023-12-29] MEDS: Menthol/Lanolin/Calamine/Znox 113 GM Tube 1 APPLIC TOPICAL (21:30)
[2023-12-29] MEDS: traMADol 50 MG Tablet PO (21:36)
[2023-12-29] MEDS: Pantoprazole Sodium 40 MG in 0.9% Normal Saline (100mL MB+) 100 ML 330 MG IV (21:42)
[2023-12-30 03:08] VITALS: BP 113/55; PULSE 53; RESP 14; TEMP 36.5; O2SAT 95
[2023-12-30 04:27] VITALS: BMI 27.4
[2023-12-30 07:08] VITALS: O2SAT 95
[2023-12-30 07:47] LABS: AST(SGOT) 94 U/L (15-37); Alanine Aminotransfer ALT/SGPT 35 U/L (13-56); Albumin, Serum 2.2 g/dL (3.2-5.0); Alkaline Phosphatase 185 U/L (45-117); Anion Gap 4 (5-15); BUN 14 mg/dL (7-18); BUN/Creat Ratio 25.5 RATIO (10-20); Bilirubin, Direct 3.14 mg/dL (0.00-0.30); Calcium,Total 8.2 mg/dL (8.5-10.1); Chloride 109 mmol/L (98-107); Creatinine, Serum 0.55 mg/dL (0.55-1.02); EST Glomerular Filtration Rate 116 mL/min (>60); Est Glom Filt Rate - Afr Amer 140 mL/min (>60); Estimated Creatinine Clearance 62.03 ml/min; Globulin 2.9 g/dL (2.2-4.2); Glucose 88 mg/dL (74-106); Potassium 3.8 mmol/L (3.5-5.1); Protein, Total 5.1 g/dL (6.4-8.2); Sodium Level 134 mmol/L (136-145)
--- NOTE | 2023-12-30 08:54 | OP.CCLET_ITS ---
12/30/2023 Ernesto Rodriguez MD [address] [place] [address] [place] [address] Re : Upper GI endoscopy procedure for Judi Negron Dear Dr. Rodriguez This procedure was performed on December. My impressions and recommendations are as follows: Impressions : - Grade III esophageal varices. Incompletely eradicated. Banded. - Hiatal hernia. - Portal hypertensive gastropathy. - No gross lesions in the first portion of the duodenum. - No specimens collected. Recommendations : - [facility]. - Clear liquid diet. - Continue present medications. My findings are described in the full procedure note, which is enclosed. If I can be of further assistance, please feel free to contact me at . Sincerely, Johny Davila, 12/30/2023 8:53:59 AM This report has been signed electronically.
--- NOTE | 2023-12-30 08:54 | OP.EGD_ITS ---
Patient Name: Judi Negron Procedure Date: 12/28/2023 12:35 PM Date of : 1950 Age: 73 Procedure: Upper GI endoscopy Indications: Hematemesis, Melena Providers: Johny Davila DO Medicines: Monitored Anesthesia Care Patient Profile: This is a 73 year old female. Refer to note in patient chart for documentation of history and physical. Patient has symptoms of acute vomiting. Complications: No immediate complications. Procedure: Pre-Anesthesia Assessment: - Prior to the procedure, a History and Physical was performed, and patient medications and allergies were reviewed. The patient is competent. The risks and benefits of the procedure and the sedation options and risks were discussed with the patient. All questions were answered and informed consent was obtained. Patient identification and proposed procedure were verified by the physician in the pre-procedure area. Mental Status Examination: alert and oriented. Airway Examination: normal oropharyngeal airway and neck mobility. Respiratory Examination: clear to auscultation. CV Examination: normal. Prophylactic Antibiotics: The patient does not require prophylactic antibiotics. Prior Anticoagulants: The patient has taken no anticoagulant or antiplatelet agents. ASA Grade Assessment: IV - A patient with severe systemic disease that is a constant threat to life. After reviewing the risks and benefits, the patient was deemed in satisfactory condition to undergo the procedure. The anesthesia plan was to use monitored anesthesia care (MAC). Immediately prior to administration of medications, the patient was re-assessed for adequacy to receive sedatives. The heart rate, respiratory rate, oxygen saturations, blood pressure, adequacy of pulmonary ventilation, and response to care were monitored throughout the procedure. The physical status of the patient was re-assessed after the procedure. After obtaining informed consent, the endoscope was passed under direct vision. Throughout the procedure, the patient's blood pressure, pulse, and oxygen saturations were monitored continuously. The gastroscope was introduced through the mouth, and advanced to the second part of duodenum. The upper GI endoscopy was accomplished without difficulty. The patient tolerated the procedure well. Scope In: 12:50:50 PM Scope Out: 1:03:15 PM Total Procedure Duration Time 0 hours 12 minutes 25 seconds Findings: Grade III varices were found in the middle third of the esophagus and in the lower third of the esophagus. They were 8 mm in largest diameter. Three bands were successfully placed with incomplete eradication of varices. Bleeding had stopped at the end of the procedure. A hiatal hernia was present. Severe portal hypertensive gastropathy was found in the entire examined stomach. No gross lesions were noted in the first portion of the duodenum. Impression: - Grade III esophageal varices. Incompletely eradicated. Banded. - Hiatal hernia. - Portal hypertensive gastropathy. - No gross lesions in the first portion of the duodenum. - No specimens collected. Recommendation: - [facility]. - Clear liquid diet. - Continue present medications. Procedure Code(s): --- Professional --- 43183, Esophagogastroduodenoscopy, flexible, transoral; with band ligation of esophageal/gastric varices CPT copyright 2021 [employer]. All rights reserved. The codes documented in this report are preliminary and upon medical records coder review may be revised to meet current compliance requirements. Johny Davila DO 12/30/2023 8:53:59 AM This report has been signed electronically. Number of Addenda: 0 Note Initiated On: 12/28/2023 12:35 PM
[2023-12-30 09:05] VITALS: BP 144/80; PULSE 58; RESP 18; TEMP 36.4; O2SAT 100
[2023-12-30] MEDS: Anastrozole 1 MG TABLET PO (09:05)
[2023-12-30] MEDS: Calcium Carb/Vitamin D 1 TABLET Tablet PO (09:05)
[2023-12-30] MEDS: Spironolactone 50 MG Tablet PO (09:05)
[2023-12-30] MEDS: Nadolol 20 MG Tablet PO (09:06)
[2023-12-30] MEDS: Pantoprazole Sodium 40 MG in 0.9% Normal Saline (100mL MB+) 100 ML 330 MG IV (09:06)
[2023-12-30] MEDS: Furosemide 40 MG Tablet PO (09:06)
[2023-12-30] MEDS: Ceftriaxone 1 GM/50 ML BAG IV (09:06)
--- NOTE | 2023-12-30 09:13 | CASEMGMT ---
Social Work SW spoke w/pt in regard to discharge plan. Pt states she slept better last night and is feeling much better. She states she was able to get to the bathroom this morning independently w/the nurse present. She does think she will be able to go home, but wants to see therapy once more to make sure. RN had already asked PT/OT to see pt first thing this morning. SW updated physician, will continue to follow. EVELIO Tinajero
--- NOTE | 2023-12-30 10:25 | DCINST_ITS ---
Discharge Instructions Diet Discharge Diet: 6 Cup Fluid Restriction and 2000 mg Sodium Diet Activity Discharge Activity: Return to Normal Activity Weight Bearing Status: Weight bearing as tolerated Dressing / Incision Call your doctor if you observe: Fever of 101 or Higher, Coldness, Increased Pain, Numbness or Tingling, Change in Color, Inability to urinate, Inability to have a bowel movement, Using more than 1 pad per hour, Shortness of breath, Dizziness, Fainting spells, Swelling in the ankles, Chest pain, Prolonged hiccupping, Increased palpitations (irregular heartbeat) and Calf discomfort Follow Up Care When: IN 2 WEEKS Test Results: Test results from this visit will be discussed in further detail at your follow- up appointment, if applicable. Discharge Plan Admission Admit Date/Time: 12/27/23 12:32 Primary Reason for Your Visit: Upper GI bleed from esophageal varices bleed, decompensated cirrhosis Attending Provider: Harrison Roper Primary Care Provider: Ernesto Rodriguez Discharge Orders/Prescriptions Prescriptions: New lactulose 10 gram/15 mL (15 mL) solution 10 g PO TID Qty: 1440 0RF Rx Instructions: Hold for more than 2 bowel movements per day. Continued acetaminophen 500 mg capsule 500 mg PO Q6H PRN (Reason: pain) spironolactone 50 mg tablet 50 mg PO DAILY calcium carbonate-vitamin D3 [Calcium 600 + D(3)] 600 mg-5 mcg (200 unit) tablet 1 tab PO BID alendronate [Fosamax] 70 mg tablet 70 mg PO MO nadolol 20 mg tablet 20 mg PO DAILY (DME) compress.stocking,knee,reg,lrg Misc See Rx Instructions .MEDSUPPLY Qty: 2 1RF Rx Instructions: wear daily for venous insufficiency 20-30 mmHg anastrozole 1 mg tablet 1 mg PO DAILY Qty: 90 1RF potassium chloride 20 mEq tablet,ER particles/crystals 20 meq PO BID Qty: 90 1RF furosemide 40 mg tablet 40 mg PO DAILY Qty: 30 0RF Changed pantoprazole 40 mg tablet,delayed release (DR/EC) 40 mg PO BIDCM 30 Days Qty: 60 1RF Referrals / Follow Up: Ernesto Rodriguez MD [Primary Care Provider] - Friend,DO Johny [Med Staff - Active Staff] - Within 1 Month Disposition Disposition (needs filled in before D/C Order can be placed): Home Health Service
--- NOTE | 2023-12-30 13:30 | DS.PCM_ITS ---
Providers Date of Admission: 12/27/23 Date of Discharge: 12/30/23 Primary Care Physician: Dr. Ernesto Rodriguez MD Consultations 12/27/23 14:09 Consult: Gastroenterology Routine Consulting Provider: [facility] Reason for Consult: GI bleed, portal hypertension cirrhosis EMERGENT Consult: No MD Notified: Yes Date Notified: 12/27/23 Time Notified: 12:36 Method of Notification: ED Physician Initiated 12/27/23 15:10 Consult: Onc/Wound/national account director Routine Comment: Reason for Consult:: R ankle wound Reason For Visit: UPPER GI BLEED Diagnosis Discharge Diagnosis (1) Decompensated hepatic cirrhosis: Status: Acute Code(s): K72.90 - Hepatic failure, unspecified without coma; K74.60 - Unspecified cirrhosis of liver (2) Acute upper GI bleeding: Status: Acute Code(s): K92.2 - Gastrointestinal hemorrhage, unspecified Plan This is a 73-year-old female with history of decompensated alcoholic cirrhosis came for black tarry stool, jaundice, weak mild dizziness and very thirsty 1. Acute upper GI bleed likely due to esophageal variceal bleed/PHG: Patient is being admitted in PCU. Heart rate and blood pressure are controlled. No hypoxia. Patient is clinically dehydrated. She is being discharged with IV fluid normal saline, strict intake and output. H&H 10.1/29.7%.Baseline H&H 11.6/31% H&H every 6 hourly. IV PPI drip after bolus, octreotide drip and ceftriaxone. GI consulted. Plan for EGD tomorrow a.m. 12/27: Verbally discussed with Dr. Davila. Patient has esophageal varices and those were banded. Official report is still pending. 12/28: Hemodynamically patient remained stable blood pressure went up to 163/87 therefore octreotide drip discontinued. Pantoprazole PPI IV infusion changed to bolus 40 mill every 12 hourly 12/29: The prescription given for pantoprazole 40 mg every 12 hourly 2-month supply. Follow-up in GI clinic in 1 month 2. Acute blood loss anemia secondary to severe upper GI bleed: Patient baseline hemoglobin is around 11 to 12 g. She was admitted with hemoglobin 10.1 and dropped to 7.9 g/dL. IV fluid half-normal saline with 40 mEq of KCl at 100 mill per hour. Patient blood pressure is systolic 120s. Repeat H&H came 8.2/24.7% therefore no indication for PRBC transfusion yet. Hemodynamically blood pressure 127/64 heart rate 67. 12/28: H&H 8.2/24.3%. IV iron infusion ordered 12/29: Prescription given for ferrous sulfate and vitamin C given. Electrolyte abnormality: Hypokalemia and hypomagnesemia: Patient on his spironolactone at home. Continued. IV magnesium sulfate ordered. 12/28: Repeat labs shows magnesium normal, phosphorus normal and potassium 4.3 normal therefore electrolyte abnormality resolved. 3. Decompensated alcoholic cirrhosis with ascites, portal hypertension, variceal bleed and jaundice: Liver chemistry reviewed. Platelet count 102,000. Liver chemistry shows AST 57 alkaline phosphatase 218, albumin 2.6. MELD sodium score 18 with INR 1.3, creatinine 0.71, sodium 138 and TB 7.4, direct 4.5. Estimated 90-day mortality 3 to 4%. 12/27: Liver chemistry shows improvement in bilirubin, T. bili 5.6, direct 3.92. AST ALT ratio, 2:1. Hypoalbuminemia. 12/28: Liver chemistry shows further improvement in total bilirubin direct bilirubin. 12/29: Liver chemistry shows improvement in total and direct bilirubin 3. Chronic HFpEF with moderately severe pulmonary hypertension: 2D echo in November 2023 EF 65%, normal RV size and systolic function. LA mildly enlarged. RVSP 50 mL trivial TR suggestive of moderate pulmonary hypertension. Patient on furosemide and spironolactone at home which is held. 12/28: Furosemide spironolactone resumed. 4. Hypertension, history of right leg non pressure ulcer, right GSV chronic venous insufficiency. Patient had right GSV successful ablation in the past by Dr. Galaviz, no acute issues. BP normal. 5. Chronic GERD, hypokalemia, osteoporosis and history of breast cancer: Patient on anastrozole.Patient follows [facility]. On alendronate continued Discharge medication reconciliation done. Discharge follow-up instructions completed. Discharge process discussed with the patient and all questions were answered to patient's satisfaction. Follow with PCP in 1 to 2 weeks Total time spent, exact 35 minutes on discharge meds reconciliation, examination, coordination of care with nurses and ancillary staff, review of imaging and blood test and discussion with the patient on follow-up instructions. Living will/advanced directive/end of life care: Patient does not living will or advanced directive. Her is power of workers compensation defense attorney for health. After discussion of benefits/risks procedures involved with full code, DNR CC arrest and DNR CC, the patient opted for full code. Patient does want artificial life support including intubation, tube feed, ventilator and/chest compression, central venous catheter, vasopressor and DC shock if needed Clinical Impression(s) from Imaging Studies Abdomen/Pelvis CT 12/27/23 10:14 IMPRESSION: Findings suggestive of cirrhosis. Fatty infiltration of the liver. Small gallstones with mild thickening of the gallbladder wall. Small amount of ascites. Sigmoid diverticulosis. Small umbilical hernia containing fat. Medications at Discharge Home Medications compress.stocking,knee,reg,lrg #2 ea 05/09/23 acetaminophen 500 mg capsule 500 mg PO Q6H PRN pain 06/08/23 anastrozole 1 mg tablet 1 mg PO DAILY #90 tabs 10/19/23 potassium chloride 20 mEq tablet,extended release(part/cryst) 20 meq PO BID SUPPLEMENT #90 tabs 11/03/23 furosemide 40 mg tablet 40 mg PO DAILY DIURETIC #30 tabs 12/15/23 alendronate 70 mg tablet (Fosamax) 70 mg PO MO JOINT SUPPORT 12/27/23 calcium carbonate 600 mg-vitamin D3 5 mcg (200 unit) tablet (Calcium 600 + D(3)) 1 tab PO BID 12/27/23 nadolol 20 mg tablet 20 mg PO DAILY BP 12/27/23 spironolactone 50 mg tablet 50 mg PO DAILY 12/27/23 ascorbic acid (vitamin C) 500 mg tablet 500 mg PO BID #60 tabs 12/30/23 ferrous sulfate 325 mg (65 mg iron) tablet (FeroSul) 325 mg PO DAILY #30 tabs 12/30/23 lactulose 10 gram/15 mL (15 mL) oral solution 10 g (15 mL) PO TID #1,440 mL 12/30/23 pantoprazole 40 mg tablet,delayed release 40 mg PO BIDCM GERD 30 days #60 tabs 12/30/23 Physical Exam Narrative Seen and examined. Patient fatigue improved. Patient can walk in the hallway and does not meet criteria for SNF. No further GI patient had EGD in the morning and esophageal varices were banded. Patient being discharged to home health. Physical exam General: Alert, Oriented x3, Cooperative HEENT: Icterus present/jaundice. Atraumatic, PERRLA, EOMI, Normocephalic Oral: Oral mucosa very dry. No Gingival or Mucosal Lesions/ Ulcerations Neck: Supple, No JVD, Negative Carotid Bruits Chest wall/Lungs: Air entry diminished in bilateral lung bases. No crepitation/rhonchi Cardiovascular: Regular rate, Regular Rhythm, Normal S1, Normal S2, No M/G/R Abdomen: Bowel Sounds Present, Soft, mild distention. Shifting dullness present. Mild ascites. No tenderness. : No dysuria. No renal angle tenderness. No suprapubic tenderness. Extremities: No edema, Capillary Refill Less than 3 Seconds Skin: No rashes, No breakdown Musculoskeletal: No Tenderness to Palpation of Joints or Extremities. ROM full Neurological: Cranial nerves II-XII grossly intact, DTR 2+/4. No acute focal neurological deficit. Psych/Mental Status: Flat affect, anxiety Weight / BMI Weight Weight: 159 lb 13.362 oz Body Mass Index (BMI) 27.4 ABG / Lab / Microbiology Data 12/29/23 05:52 12/30/23 05:45 Laboratory: Laboratory Results - last 24 hr 12/30/23 05:45: Sodium 134 L, Potassium 3.8, Chloride 109 H, Carbon Dioxide 21.0, Anion Gap 4 L, BUN 14, Creatinine 0.55, Estim Creat Clear Calc 62.03, Est GFR (MDRD) Af Amer 140, Est GFR (MDRD) Non-Af 116, BUN/Creatinine Ratio 25.5 H, Glucose 88, Calcium 8.2 L, Total Bilirubin 4.20 H, Direct Bilirubin 3.14 H, AST 94 H, ALT 35, Alkaline Phosphatase 185 H, Total Protein 5.1 L, Albumin 2.2 L, Globulin 2.9 Microbiology: Microbiology 12/27/23 09:39 Stool Stool Occult Blood (KENDRA) - Final Occult Blood Positive D/C Instructions Discharge Diet: 6 Cup Fluid Restriction and 2000 mg Sodium Diet Weight Bearing Status: Weight bearing as tolerated Call your doctor if you observe: Fever of 101 or Higher, Coldness, Increased Pain, Numbness or Tingling, Change in Color, Inability to urinate, Inability to have a bowel movement, Using more than 1 pad per hour, Shortness of breath, Dizziness, Fainting spells, Swelling in the ankles, Chest pain, Prolonged hiccupping, Increased palpitations (irregular heartbeat) and Calf discomfort When: IN 2 WEEKS Meaningful Use Info Meaningful Use Meaningful Use Diagnoses (Choose all that apply): None applicable Ischemic Stroke Statin Dosing Therapy Reference: STATIN DOSE THERAPY REFERENCE: * Patients > 75 years receive moderate or high dose statin therapy. * Patients 75 years or YOUNGER should receive HIGH intensity statin dose unless contraindicated. You will be required to document reason for non-treatment if statin daily dose does not meet guidelines. HIGH DOSE STATIN THERAPY DAILY Atorvastatin > than or = to 40 mg Rosuvastatin > than or = to 20 mg Amlodipine + Atorvastatin > than or = to 2.5/40 mg Ezetimibe + Simvastatin 10/80 mg Simvastatin 80mg Discharge Plan Admission Admit Date/Time: 12/27/23 12:32 Primary Reason for Your Visit: Upper GI bleed from esophageal varices bleed, decompensated cirrhosis Attending Provider: Harrison Roper Primary Care Provider: Ernesto Rodriguez Discharge Orders/Prescriptions Prescriptions: New lactulose 10 gram/15 mL (15 mL) solution 10 g PO TID Qty: 1440 0RF Rx Instructions: Hold for more than 2 bowel movements per day. ferrous sulfate [FeroSul] 325 mg (65 mg iron) tablet 325 mg PO DAILY Qty: 30 2RF ascorbic acid (vitamin C) 500 mg tablet 500 mg PO BID Qty: 60 2RF Continued acetaminophen 500 mg capsule 500 mg PO Q6H PRN (Reason: pain) spironolactone 50 mg tablet 50 mg PO DAILY calcium carbonate-vitamin D3 [Calcium 600 + D(3)] 600 mg-5 mcg (200 unit) tablet 1 tab PO BID alendronate [Fosamax] 70 mg tablet 70 mg PO MO nadolol 20 mg tablet 20 mg PO DAILY (DME) compress.stocking,knee,reg,lrg Misc See Rx Instructions .MEDSUPPLY Qty: 2 1RF Rx Instructions: wear daily for venous insufficiency 20-30 mmHg anastrozole 1 mg tablet 1 mg PO DAILY Qty: 90 1RF potassium chloride 20 mEq tablet,ER particles/crystals 20 meq PO BID Qty: 90 1RF furosemide 40 mg tablet 40 mg PO DAILY Qty: 30 0RF Changed pantoprazole 40 mg tablet,delayed release (DR/EC) 40 mg PO BIDCM 30 Days Qty: 60 1RF Referrals / Follow Up: Ernesto Rodriguez MD [Primary Care Provider] - Friend,DO Johny [Med Staff - Active Staff] - Within 1 Month Disposition Disposition (needs filled in before D/C Order can be placed): Home Health Service Charges/Coding Visit Charges Inpatient E&M: 14421 Disch Hosp >30min
--- NOTE | 2023-12-30 13:42 | CASEMGMT ---
RN CM into pt room, pt is agreeable to [facility] and is ready to dc home. She has chosen [facility]. TC to [facility], message left. Pt is aware that we will not know until Monday if she is accepted. Updated hospitalist on plan.
[2023-12-30 13:48] VITALS: BP 111/61; PULSE 65; RESP 18; TEMP 36.4; O2SAT 99
== END 2023-12-30 14:41 | disposition home health service (06) | DRG 432 ==
LOC: ED 11:55 → PCU 12:44
PROVIDERS: Anesthesiology; Internal Medicine Gastroenterology; Admitting Provider Internal Medicine; Emergency Provider Emergency Medicine; PCP Internal Medicine; Visit Provider Internal Medicine
PROC: 0DJ08ZZ Inspection of Upper Intestinal Tract, Via Natural or Artificial Opening Endoscopic (ICD-10-PCS; CPT 43235; principal; 2023-12-28 11:55)
DX: K70.31 Alcoholic cirrhosis of liver with ascites (principal); I85.11 Secondary esophageal varices with bleeding; K29.81 Duodenitis with bleeding; K76.6 Portal hypertension; D62 Acute posthemorrhagic anemia; I50.32 Chronic diastolic (congestive) heart failure; I27.20 Pulmonary hypertension, unspecified; I11.0 Hypertensive heart disease with heart failure; F10.20 Alcohol dependence, uncomplicated; K76.0 Fatty (change of) liver, not elsewhere classified; K21.9 Gastro-esophageal reflux disease without esophagitis; E87.6 Hypokalemia; K44.9 Diaphragmatic hernia without obstruction or gangrene; E83.42 Hypomagnesemia; Y90.9 Presence of alcohol in blood, level not specified; M81.0 Age-related osteoporosis without current pathological fracture; Z90.12 Acquired absence of left breast and nipple; Z79.83 Long term (current) use of bisphosphonates; Z79.899 Other long term (current) drug therapy; Z85.3 Personal history of malignant neoplasm of breast
CPT/HCPCS: 36415; 74177; 76705; 80048; 80076; 81001; 82274; 83690; 83735; 84100; 85014; 85018; 85025; 85610; 85730; 86850; 86900; 86901; 86920; 86922; 93005; 94668; 97110; 97116; 97162; 97166; 97530; 97535; 99284; J7030; J7040; J7050; J7120; Q9967; A4216; J2405; J2916; J3490

== ENCOUNTER → 2024-01-05 | Outpatient (CLI) | payer MEDICARE, OTHER, SELFPAY ==
[2024-01-05 12:26] LABS: Absolute Lymphocyte Count 0.97 X10^3/uL (0.83-4.51); Absolute Neutrophil Count 7.1 X10^3/uL (2.0-7.7); Basophil# 0.02 X10^3/uL; Basophil% 0.2 % (0-1); Eosinophil# 0.04 X10^3/uL; Eosinophils% 0.5 % (0-5); Hematocrit 28.4 % (37-47); Hemoglobin 9.9 g/dL (12.0-15.0); Lymphocyte # 0.97 X10^3/ul (0.83-4.51); Mean Corp Hgb Conc 34.9 g/dL (32-36); Mean Corpuscular Hgb 36.7 pg (27.0-32.0); Mean Corpuscular Volume 105.2 fL (81-99); Mean Platelet Vol. 9.6 fl (6.2-12.0); Monocyte# 0.65 X10^3/uL; Monocyte% 7.3 % (0-10); NRBC Flagged by Analyzer 0 % (0-5); Neutrophil # 7.13 X10^3/uL (2.7-7.7); Neutrophil % 80.5 % (47-70); Platelet Count 165 K/mm3 (150-450); RBC Distribution Width SD 50.1 fl (35.1-43.9); White Blood Count 8.9 K/mm3 (4.4-11.0)
[2024-01-05 12:45] LABS: BNP,B-Type NATRIURETIC PEPTIDE 279.9 pg/mL (0-100)
[2024-01-05 13:10] LABS: ALB/GLOB Ratio 0.7 RATIO (0.9-2.4); AST(SGOT) 43 U/L (15-37); Alanine Aminotransfer ALT/SGPT 26 U/L (13-56); Albumin, Serum 2.6 g/dL (3.2-5.0); Alkaline Phosphatase 201 U/L (45-117); Anion Gap 9 (5-15); BUN 5 mg/dL (7-18); BUN/Creat Ratio 8.1 RATIO (10-20); Calcium,Total 8.6 mg/dL (8.5-10.1); Chloride 98 mmol/L (98-107); Creatinine, Serum 0.62 mg/dL (0.55-1.02); EST Glomerular Filtration Rate 101 mL/min (>60); Est Glom Filt Rate - Afr Amer 122 mL/min (>60); Globulin 3.5 g/dL (2.2-4.2); Glucose 113 mg/dL (74-106); Protein, Total 6.1 g/dL (6.4-8.2); Sodium Level 131 mmol/L (136-145)
[2024-01-05 13:30] LABS: Vitamin B12 1503 pg/mL (211-911)
[2024-01-09 16:09] LABS: Vitamin B1, Thiamine 78.3 nmol/L (66.5-200.0); Zinc, Plasma or Serum 50 ug/dL (44-115)
== END | disposition home or self-care (01) ==
PROVIDERS: PCP Internal Medicine; Visit Provider Physician Assistant
DX: R60.0 Localized edema (principal); I50.9 Heart failure, unspecified; F10.20 Alcohol dependence, uncomplicated; R73.09 Other abnormal glucose
CPT/HCPCS: 36415; 80053; 82607; 82746; 83036; 83880; 84425; 84630; 85025

== ENCOUNTER → 2024-01-17 | Outpatient (CLI) | payer MEDICARE, OTHER, SELFPAY ==
[2024-01-17 12:39] LABS: Absolute Lymphocyte Count 0.89 X10^3/uL (0.83-4.51); Absolute Neutrophil Count 4.5 X10^3/uL (2.0-7.7); Basophil# 0.04 X10^3/uL; Basophil% 0.7 % (0-1); Eosinophil# 0.09 X10^3/uL; Eosinophils% 1.5 % (0-5); Hematocrit 29.9 % (37-47); Hemoglobin 9.8 g/dL (12.0-15.0); Lymphocyte # 0.89 X10^3/ul (0.83-4.51); Lymphocyte % 14.7 % (19-41); Mean Corp Hgb Conc 32.8 g/dL (32-36); Mean Corpuscular Hgb 33.7 pg (27.0-32.0); Mean Corpuscular Volume 102.7 fL (81-99); Mean Platelet Vol. 9.2 fl (6.2-12.0); Monocyte# 0.53 X10^3/uL; Monocyte% 8.7 % (0-10); NRBC Flagged by Analyzer 0 % (0-5); Neutrophil # 4.51 X10^3/uL (2.7-7.7); Neutrophil % 74.2 % (47-70); Platelet Count 193 K/mm3 (150-450); RBC Distribution Width CV 12.9 % (11.6-14.6); RBC Distribution Width SD 48.9 fl (35.1-43.9); Red Blood Count 2.91 M/mm3 (4.2-5.4); White Blood Count 6.1 K/mm3 (4.4-11.0)
[2024-01-17 13:01] LABS: ALB/GLOB Ratio 0.7 RATIO (0.9-2.4); AST(SGOT) 39 U/L (15-37); Alanine Aminotransfer ALT/SGPT 21 U/L (13-56); Albumin, Serum 2.6 g/dL (3.2-5.0); Alkaline Phosphatase 146 U/L (45-117); Anion Gap 7 (5-15); BUN 8 mg/dL (7-18); BUN/Creat Ratio 12.3 RATIO (10-20); Calcium,Total 9.1 mg/dL (8.5-10.1); Chloride 100 mmol/L (98-107); Creatinine, Serum 0.65 mg/dL (0.55-1.02); EST Glomerular Filtration Rate 95 mL/min (>60); Est Glom Filt Rate - Afr Amer 115 mL/min (>60); Globulin 3.6 g/dL (2.2-4.2); Glucose 82 mg/dL (74-106); Potassium 3.7 mmol/L (3.5-5.1); Protein, Total 6.2 g/dL (6.4-8.2); Sodium Level 131 mmol/L (136-145)
[2024-01-17 19:22] LABS: Xtra Tube EP Lab EXTRA TUBE
== END | disposition home or self-care (01) ==
LOC: BIMLAB 11:17
PROVIDERS: Internal Medicine Hematology & Oncology; PCP Internal Medicine; Referring Provider Physician Assistant; Visit Provider Physician Assistant
DX: C50.912 Malignant neoplasm of unspecified site of left female breast (principal); Z17.0 Estrogen receptor positive status [ER+]; C44.721 Squamous cell carcinoma of skin of unspecified lower limb, including hip; K92.2 Gastrointestinal hemorrhage, unspecified; E87.6 Hypokalemia
CPT/HCPCS: 36415; 80053; 85025

== ENCOUNTER 2024-02-28 09:37 | Outpatient (RCR) | payer MEDICARE, OTHER, SELFPAY ==
[2023-12-04 00:37] VITALS: BP 133/65; PULSE 72; RESP 20; TEMP 36.3
[2024-02-28 10:02] VITALS: BP 131/50; PULSE 64; RESP 18; TEMP 36.4; BMI 25.2
--- NOTE | 2024-02-28 12:40 | PN.PCM_ITS ---
History of Present Illness Date of Service: 02/28/24 Chief Complaint: Follow-up on her right lower leg lateral area wound nonhealing since at least November. History of Wound: 72-year-old white female in [place] where she is living during the winter. She had a growth removed from her right lateral lower leg. She is still not sure if it is cancer or not. After finally getting through to the dermatology she found that they never sent a biopsy off. She saw her own doctor up here and she was referred to us from her and put on cephalexin. Recently she was taken off her Lasix and has terrible edema of her lower extremities and abdomen. Patient states she has gained 9 pounds Patient had been referred to dermatology and has returned after they did Mohs surgery on her right lateral lower leg. They state they got all the cancer out. We will reapply for EpiFix to restart her. We will also also refer to Dr. Galaviz for vascular problems she is having in her right lower leg. Her biggest complaint is that she is swelling a lot in her lower extremities. Worried about a blood clot Now she has breast cancer and is being seen by oncology at [place] for that. She has left total mastectomy on 06/12/2023. She states she is healing well from that. Progress of Wound: So patient has been going to the [facility] wound center and getting EpiFix's again to the right lower leg medial and lateral compared to what she was when she left here there about the same size. I think depth is better. She refuses to let anyone debride so I suggest that she go back to [facility] wound center and let them continue the EpiFix is that she has coming. She also wanted to be checked for HBO thinking that she would be eligible but she does not have arterial problems she has a venous problem which does not cover she is not diabetic and she does not have infection in the bone or radiation necrosis. So patient will be sent back to [facility] she does have an appointment tomorrow with Dr. Cope for vascular she was not happy with commonwealth attorney's office so she left commonwealth attorney's office. Subjective Subjective Patient was not happy and tearful with outcomes that she thought she would be eligible for HBO treatment here. Objective Data Objective Data Patient is to continue getting the EpiFix's and continue compressing with her compression stocking and an [place] wrap over top until she can afford to buy the new compression stockings at the vascular doctor had ordered for her. Vital Signs: Vital Signs Temp Pulse Resp BP 97.5 F L 64 18 131/50 H 02/28/24 10:02 02/28/24 10:02 02/28/24 10:02 02/28/24 10:02 Weight: 147 lb 1.272 oz Body Mass Index (BMI) 25.2 Physical Exam Const oriented x3 General Appearance: cooperative Exam Limitations: no limitations HEENT normocephalic Head and Scalp: normal to inspection Face and Sinus: normal facial exam Nose: external nose normal General Ear: hearing grossly impaired External Ear: external ears normal Mouth: oral and palatal mucosa normal Eyes PERRL General Eye: normal appearance of both eyes Neck full ROM General: normal visual inspection Resp normal respiratory effort Effort and Inspection: able to speak in complete sentences Auscultation: clear to auscultation bilaterally Cardio regular rate and regular rhythm Palpation: normal PMI Rate: regular rate Rhythm: regular rhythm GI Auscultation: normoactive bowel sounds Palpation: soft and no hepatosplenomegaly external exam normal Back/Spine Cervical Spine: cervical ROM normal Thoracic Spine / Upper Back: normal to inspection Lumbar Spine / Lower Back: normal to inspection Extremity normal to inspection General Extremity: normal exam except as noted Skin no rashes or lesions noted Neuro oriented x3 Psych Appearance: grossly normal Speech: normal speech Thought Content: normal thought content Judgement: judgement good Debridement Note Debridement Note No debridement was completed: No debridement was completed today Post-Debridement Measurements and Additional Note: Post-Debridement Measurements/Treatment - Nurse 1 - General Ulcer Assessment Start: 02/28/24 10:02 Freq: Status: Active Protocol: WC.LOWEXT Activity Type Activity Date Activity User E-sign Co-sign Detail Recorded Client Recorded Date Recorded By Document 02/28/24 10:02 DL 10..25.7 02/28/24 10:20 DL 02/28/24 10:02 - Today's Visit Information Type of service Initial Visit Arrival Mode Ambulatory Transfer Assistance None Patient Identification Verified (Name & Yes ) Patient Requires Transmission-Based No Precautions Height and Weight Height 5 ft 4 in Weight 147 lb 1.272 oz Weight in Pounds 147.1 lbs Body Mass Index (BMI) 25.2 BMI Classification Overweight BSA - [place] 1.72 Vital Signs Temperature (97.8 F-99.1 F) 97.5 F L Temperature Source Temporal Pulse Rate (60-100) 64 Pulse Location Monitor Respiratory Rate (12-18) 18 Respiratory rate source Observation Blood Pressure (90/60-120/80) 131/50 H Blood Pressure Mean (mm Hg) 77 Source Monitor Pain Scale: 0-10 Numeric Is Patient Pain Free? Yes Lower Extremity Assessment/ Foot Assessment/ Toe Nail Assessment Left -Extremity Color Hyperpigmented, Hemosiderin -Hair Growth on Legs No -Hair Growth on Toes No -Temperature of Extremity Warm -Capillary Refill Greater than 3 Seconds -Dependent Rubor No -Blanched when Elevated No -Lipodermatosclerosis No -Other Deformity No -Prior Foot Ulcer No -Charcot Joint No -Prior Amputation No -Thick Yes -Discolored Yes -Deformed No -Improper Length & Hygeine No Right -Extremity Color Hyperpigmented, Hemosiderin -Hair Growth on Legs No -Hair Growth on Toes No -Temperature of Extremity Warm -Capillary Refill Greater than 3 Seconds -Dependent Rubor No -Blanched when Elevated No -Lipodermatosclerosis No -Other Deformity No -Prior Foot Ulcer No -Charcot Joint No -Prior Amputation No -Thick Yes -Discolored Yes -Deformed No -Improper Length & Hygeine No Neuropathy Assessment Feet - Top Side and Bottom <Entered> (a) Communication Assessment Preferred language Tanzanian Able to Read Yes Able to Write Yes Communication Tools None Right Hearing Abillity Normal Left Hearing Abillity Normal Visual Assistive Devices None Teaching Assessment Preferences Verbal,Written, Demonstration Barriers to Learning None Readiness To Learn Fair Willingness to Engage in Self Management Med Activies Readiness to Engage in Self Management Med Activities Anxiety Level Calm Cooperation Cooperative Perception Coherent Interest in Health Problem Asks Questions Education Importance Acknowledges Need Does Patient Smoke tobacco or other No substances Smoking Status Never smoker Is Patient Diabetic No Functional Assessment Recent Decline in Ability to Perform Denies Any Declines Culture/Alevism/Assayer Helper Cultural/Alevism Needs that may affect No Treatment Plan Would you allow our hospital sack cleaner to No meet you for the purpose of spiritual/ emotional support? Assayer Helper to contact place of latter-day No Teaching: Wound Center *Debridement -Person Taught Patient *Wound/Skin Impairment -Person Taught Patient Discharge Instructions -Person Taught Patient Compression Wraps & Stockings -Person Taught Patient (a) 1 - + WC - Nurse 1 - General Ulcer Measurement Start: 02/28/24 10:02 Freq: Status: Active Protocol: Activity Type Activity Date Activity User E-sign Co-sign Detail Recorded Client Recorded Date Recorded By Document 02/28/24 10:02 DL [id number] 02/28/24 10:20 DL 02/28/24 10:02 Wound Center Nurse 1 #6 R Med LE -Current Size (cm) - Length 8.4 -Current Size (cm) - Width 4.2 -Current Size (cm) - Depth 0.2 -Total Square Cm 35.28 -Photo Taken Yes -Exudate Amt Medium -Exudate Type Serosanguineous -Wound Margin Distinct, Outline Attached -Granulation Amt Medium (34-66%) -Granulation Quality Red -Necrosis Amt Medium (34-66%) -Necrotic Tissue Type Adherent Slough -Structure Exposed N/A -Texture (Elif-wound Skin Appearance) Localized Edema ,Scarring -Moisture (Elif-wound Skin Appearance) No Abnormality -Color (Elif-wound Skin Appearance) Hemosiderin Staining -Temperature (Elif-wound Skin No Abnormality Appearance) (Pt Warm) -Ulcer Cleansing Soap and Water -Foul Odor after Cleansing No -Anesthetic Used 4% Lidocaine Solution #3 right lateral ankle -Current Size (cm) - Length 4.4 -Current Size (cm) - Width 5.8 -Current Size (cm) - Depth 0.2 -Total Square Cm 25.52 -Photo Taken Yes -Exudate Amt Medium -Exudate Type Serosanguineous -Wound Margin Distinct, Outline Attached -Granulation Amt Medium (34-66%) -Granulation Quality Carrick,Red -Necrosis Amt Medium (34-66%) -Necrotic Tissue Type Adherent Slough -Structure Exposed N/A -Texture (Elif-wound Skin Appearance) Localized Edema ,Scarring -Color (Elif-wound Skin Appearance) Hemosiderin Staining -Temperature (Elif-wound Skin No Abnormality Appearance) (Pt Warm) -Ulcer Cleansing Soap and Water -Foul Odor after Cleansing No -Anesthetic Used 4% Lidocaine Solution Right Calf (cm) 37.5 Right Ankle (cm) 25.2 WC - Nurse 2 - General Ulcer CM Notes Start: 02/28/24 10:02 Freq: Status: Active Protocol: Activity Type Activity Date Activity User E-sign Co-sign Detail Recorded Client Recorded Date Recorded By Document 02/28/24 10:45 [facility] [id number] 02/28/24 11:09 [facility] 02/28/24 10:45 Wound Center Nurse 2 #6 R Med LE -Wound/Ulcer Outcome Not Healed -Bleeding Controlled with NA #3 right lateral ankle -Wound/Ulcer Outcome Not Healed -Bleeding Controlled with NA Pain Scale: 0-10 Numeric Is Patient Pain Free? Yes - Nurse 3 - General Ulcer D/C NN Start: 02/28/24 10:02 Freq: Status: Active Protocol: Activity Type Activity Date Activity User E-sign Co-sign Detail Recorded Client Recorded Date Recorded By Document 02/28/24 11:52 RB wound 02/28/24 11:55 RB 02/28/24 11:52 Wound Care Center Nurse 3 #6 R Med LE -Ulcer Cleansing Rinsed/ Irrigated with Saline -Primary Dressing Applied Fibracol Plus 4x4 -Other Dressing abd -Primary Dressing Covered/Secured with Dry Gauze & Roll Gauze, Secured with Tape -Fibracol Plus 4x4 1 #3 right lateral ankle -Ulcer Cleansing Rinsed/ Irrigated with Saline -Other Dressing fibracol -Primary Dressing Covered/Secured with Dry Gauze & Roll Gauze, Secured with Tape Right -Other colton Treatment Response Procedure Tolerated Well Pain Scale: 0-10 Numeric Is Patient Pain Free? Yes - Visit Discharge Discharge Condition Stable Ambulatory Status Ambulatory Transportation Private Auto Medication Reconcilliation completed & No provided to patient/care provider Clinical Summary of Care Provided Yes Assessment/Plan Assessment/Plan (1) Lower extremity edema: CODE(S): R60.0 - Localized edema (2) Venous insufficiency of right lower extremity: CODE(S): I87.2 - Venous insufficiency (chronic) (peripheral) PLAN: Continue compression as ordered (3) Non-pressure ulcer of right lower extremity with fat layer exposed: CODE(S): L97.912 - Non-pressure chronic ulcer of unspecified part of right lower leg with fat layer exposed PLAN: Wash leg with antibacterial soap and water and apply Fibracol to wound base and cover with Adaptic and gauze dressings. Do daily until seen again in [facility]. They can finish the EpiFix's and she can apply for therapy over there. Patient is not qualified to meet the criteria for HBO treatment
--- NOTE | 2024-03-06 10:00 | WC ---
PHOTO 02/28/2024
--- NOTE | 2024-03-06 10:00 | WC ---
PHOTO 02/28/2024
== END 2024-03-03 23:59 | disposition home or self-care (01) ==
LOC: WC 09:37
PROVIDERS: PCP Internal Medicine; Referring Provider Nurse Practitioner; Visit Provider Nurse Practitioner
DX: C50.919 Malignant neoplasm of unspecified site of unspecified female breast (principal); L97.812 Non-pressure chronic ulcer of other part of right lower leg with fat layer exposed; R60.0 Localized edema; I87.2 Venous insufficiency (chronic) (peripheral)
CPT/HCPCS: 99213; 99214; G0463

== ENCOUNTER → 2024-03-15 | Outpatient (CLI) | payer MEDICARE, OTHER, SELFPAY ==
[2024-03-15 08:41] LABS: Bacteria 0 SEEN /hpf (None Seen); Mucous, Urine 0 SEEN /hpf (<or=2+); Red Blood Cells-Urine 0 SEEN /hpf (0-5); Squamous Epithelial Cells - UA 0 SEEN /hpf (5-10); White Blood Cells 0 SEEN /hpf (0-5)
[2024-03-15 09:26] LABS: Absolute Lymphocyte Count 1.19 X10^3/uL (0.83-4.51); Absolute Neutrophil Count 2.9 X10^3/uL (2.0-7.7); Basophil# 0.03 X10^3/uL; Basophil% 0.6 % (0-1); Eosinophil# 0.12 X10^3/uL; Eosinophils% 2.5 % (0-5); Hematocrit 31.3 % (37-47); Hemoglobin 10.4 g/dL (12.0-15.0); Lymphocyte # 1.19 X10^3/ul (0.83-4.51); Mean Corp Hgb Conc 33.2 g/dL (32-36); Mean Corpuscular Hgb 28.9 pg (27.0-32.0); Mean Corpuscular Volume 86.9 fL (81-99); Mean Platelet Vol. 8.8 fl (6.2-12.0); Monocyte# 0.48 X10^3/uL; Monocyte% 10.1 % (0-10); NRBC Flagged by Analyzer 0 % (0-5); Neutrophil # 2.93 X10^3/uL (2.7-7.7); Neutrophil % 61.6 % (47-70); Platelet Count 194 K/mm3 (150-450); RBC Distribution Width CV 13.6 % (11.6-14.6); RBC Distribution Width SD 43.2 fl (35.1-43.9); White Blood Count 4.8 K/mm3 (4.4-11.0)
[2024-03-15 09:35] LABS: Osmolality, Urine 351 mOsm/KG
[2024-03-15 09:48] LABS: Glucose, Dipstick Normal (Normal); Ketone-Dipstick Negative (Negative); Leukocyte Esterase-Dipstick 25 /ul (Negative); Nitrite-Dipstick Negative (Negative); Occult Blood-Urine Negative /ul (Negative); Protein-Dipstick Negative (Negative); Urine Bilirubin Dipstick Negative (Negative); Urine Urobilinogen Normal (Normal)
[2024-03-15 10:08] LABS: Microalbumin,Random Urine < 5.0 mg/L (NO RANGE EST.)
[2024-03-15 10:11] LABS: Color, Urine Yellow (Yellow); Specific Gravity, Urine 1.015 (1.002-1.030); Urine Clarity Clear (Clear)
[2024-03-15 10:52] LABS: ALB/GLOB Ratio 0.8 RATIO (0.9-2.4); AST(SGOT) 30 U/L (15-37); Alanine Aminotransfer ALT/SGPT 17 U/L (13-56); Albumin, Serum 2.9 g/dL (3.2-5.0); Alkaline Phosphatase 150 U/L (45-117); Anion Gap 5 (5-15); BUN 23 mg/dL (7-18); BUN/Creat Ratio 41.2 RATIO (10-20); CPK Total, Creatine Kinase 88 U/L (26-192); Calcium,Total 9.9 mg/dL (8.5-10.1); Chloride 100 mmol/L (98-107); Creatinine, Serum 0.56 mg/dL (0.55-1.02); EST Glomerular Filtration Rate 113 mL/min (>60); Est Glom Filt Rate - Afr Amer 137 mL/min (>60); Ferritin 29 ng/mL (8-252); Globulin 3.8 g/dL (2.2-4.2); Glucose 83 mg/dL (74-106); Magnesium 1.8 mg/dL (1.6-2.6); Phosphorus 3.8 mg/dL (2.5-4.9); Potassium 3.5 mmol/L (3.5-5.1); Protein, Total 6.7 g/dL (6.4-8.2); Sodium Level 133 mmol/L (136-145)
[2024-03-18 12:08] LABS: Anti-Centromere B Ab <0.2 AI (0.0-0.9); Anti-Chromatin <0.2 AI (0.0-0.9); Anti-Jo <0.2 AI (0.0-0.9); Anti-Mitochondrial AB <20.0 Units (0.0-20.0); Anti-Scleroderma-70 AB <0.2 AI (0.0-0.9); Anti-dsDNA Ab <1 IU/mL (0-9); RNP Ab 0.8 AI (0.0-0.9); SJOGREN'S Anti-SS-A test < 0.2 AI (0.0-0.9); SJOGREN'S Anti-SS-B test < 0.2 AI (0.0-0.9); Smith Ab <0.2 AI (0.0-0.9)
[2024-03-19 08:12] LABS: AFP, Tumor Marker 2.3 ng/mL (0.0-9.2); Aldolase 4.1 U/L (3.3-10.3); Anti-Smooth Muscle ABS 9 Units (0-19); Endomysial Antibody IgA Negative (Negative); Immunoglobulin A 566 mg/dL (64-422); Myoglobin, Urine < 2 ng/mL (0-13); t-Transglutaminase IgA <2 U/mL (0-3)
== END | disposition home or self-care (01) ==
LOC: LAB 08:33
PROVIDERS: PCP Internal Medicine; Referring Provider Internal Medicine Gastroenterology; Visit Provider Internal Medicine Gastroenterology
DX: R60.0 Localized edema (principal); K74.60 Unspecified cirrhosis of liver; D64.9 Anemia, unspecified
CPT/HCPCS: 36415; 80053; 81001; 82043; 82085; 82105; 82550; 82728; 82784; 83516; 83735; 83874; 83935; 84100; 85025; 86225; 86235; 86255

== ENCOUNTER → 2024-03-25 | Outpatient (CLI) | payer MEDICARE, OTHER, SELFPAY ==
--- NOTE | 2024-03-25 07:37 | US_ITS ---
STUDY: ABDOMINAL ULTRASOUND -ascites survey. REASON FOR VISIT: Female, 73 years old cirrhosis -- ascites survey TECHNIQUE: Ultrasound evaluation of the 4 quadrants was performed with real-time and static doyle-scale imaging. TECHNICAL QUALITY: Adequate. COMPARISON: None. FINDINGS: The 4 quadrants were examined with ultrasound. There is no evidence of ascites. US/Abdomen Limited IMPRESSION: No evidence of ascites. Electronically Signed: Nahum Kelley MD at 8:14 EDT ,
== END | disposition home or self-care (01) ==
PROVIDERS: PCP Internal Medicine; Referring Provider Internal Medicine Gastroenterology; Visit Provider Internal Medicine Gastroenterology
DX: R60.0 Localized edema (principal)
CPT/HCPCS: 76705

== ENCOUNTER → 2024-04-04 | Outpatient (CLI) | payer MEDICARE, OTHER, SELFPAY ==
--- NOTE | 2024-04-04 12:36 | BD_ITS ---
STUDY: DUAL ENERGY X-RAY ABSORPTIOMETRY / DXA REASON FOR EXAM: Female, 73 years old. Osteoporosis TECHNIQUE: Bone Mineral Density (BMD) measurements of lumbar spine and right hip were obtained. COMPARISON: Comparison is made with prior study dated March 31, 2022. FINDINGS: Lumbar Spine (L1-L4): g/cm2 (1.045) / T-score (0.0) / Z-score (2.2) Findings are suggestive of normal bone density with a low fracture risk. Right Femur Total: g/cm2 (0.632) / T-score (-2.5) / Z-score (-0.9) Right Femoral Neck: g/cm2 (0.466) / T-score (-3.4) / Z-score (-1.5) The T-Scores on the most recent prior examination were: Lumbar Spine (L1-L4): There has been improvement of bone density since the previous examination. Right Femur Total: which represents a worsening of 3.6%. BD/Dexa Bone Density Study IMPRESSION: The patient is considered osteoporotic as outlined below according to World Felix Organization (WHO) criteria with a high fracture risk. There has been worsening of bone density since the previous examination. Reference Information: The T-score is the number of standard deviations above or below the standard which is normal for young adults at their peak bone mineral density. The World Health Organization (WHO) interprets the T-scores as follows: Above -1 Normal bone density Between -1 and -2.5 Osteopenia Equal to / or below -2.5 Osteoporosis As a practical clinical guideline, osteopenia may be graded as follows: Mild -1 through -1.5 Moderate -1.6 through -2.0 Severe -2.1 through -2.4 The Z-score is the number of standard deviations above or below age-matched controls. A Z-score of less than -1.5 would be considered abnormal. References: 1. NIH Osteoporosis and Related Bone Diseases www osteo.org 2. International Society for Clinical Densitometry www iscd.org 3. National Osteoporosis Foundation www nof.org Electronically Signed: Nahum Kelley MD at 15:12 EDT ,
== END | disposition home or self-care (01) ==
LOC: OPBD 12:32
PROVIDERS: PCP Internal Medicine; Referring Provider Internal Medicine; Visit Provider Internal Medicine
DX: Z78.0 Asymptomatic menopausal state (principal)
CPT/HCPCS: 77080

== ENCOUNTER → 2024-04-10 | Outpatient (CLI) | payer MEDICARE, OTHER, SELFPAY ==
--- NOTE | 2024-04-10 08:55 | MRI_ITS ---
MRI Abdomen w/ and w/out contrast 04/10/2024 9:31 AM COMPARISON: CT 09/07/2022 CLINICAL HISTORY: cirrhosis, jaundice, acute upper GI bleeding TECHNIQUE: Multiplanar T1 and T2 weighted, diffusion and dynamic post-gadolinium images were obtained through the abdomen before and after administration of 13 cc of IV ProHance. FINDINGS: Liver: Nodular contour compatible with cirrhosis. No T2 hyperintense or arterially hyperenhancing lesion. Gallbladder: Unremarkable Pancreas: Unremarkable Spleen: Mildly enlarged. Adrenal Glands: Unremarkable Kidneys: Unremarkable GI Tract: Unremarkable Lymphadenopathy: Absent Ascites: Absent Bones: No suspicious lesions MRI/MRI Abd WITH and W/O Contrast IMPRESSION: Cirrhotic liver with evidence of portal hypertension including splenomegaly. No suspicious liver mass. Recommend continued follow-up multiphase MR abdomen HCC protocol in 4-6 months. Electronically Signed: Rian Torres MD at 16:10 EDT ,
== END | disposition home or self-care (01) ==
LOC: MRI 08:04
PROVIDERS: PCP Internal Medicine; Referring Provider Internal Medicine Gastroenterology; Visit Provider Internal Medicine Gastroenterology
DX: K74.60 Unspecified cirrhosis of liver (principal); K92.2 Gastrointestinal hemorrhage, unspecified; R60.0 Localized edema
CPT/HCPCS: 74183; A9575; A4216

== ENCOUNTER → 2024-04-11 | Outpatient (CLI) | payer MEDICARE, OTHER, SELFPAY ==
--- NOTE | 2024-04-11 10:09 | ECHOD_ITS ---
Reason For Study: PORTAL HTN Procedure This was a 2D Doppler, Color Flow transthoracic echocardiogram. Exam performed in department. Left Ventricle Normal LV size. Left ventricular systolic function is normal. The left ventricular ejection fraction is 60 %. No regional wall motion abnormalities noted. Right Ventricle Normal RV size. Normal systolic function. Atria Normal left atrium. Normal right atrium. Mitral Valve Normal mitral valve. Trivial mitral valve insufficiency. Tricuspid Valve Normal tricuspid valve. Unable to estimate RV systolic pressure due to insufficient tricuspid regurgitant envelope. Unable to estimate RV systolic pressure due to inadequate jet, pulmonary artery pressure probably normal. Aortic Valve Trisinus/trileaflet aortic valve. Pulmonic Valve Normal pulmonic valve. Great Vessels Normal aortic root. The pulmonary artery is normal size. Normal inferior vena cava. Pericardium/Pleural No pericardial effusion. MMode/2D Measurements & Calculations LVIDd: 5.0 cm IVSd: 1.1 cm LVOT diam: 1.9 cm LVIDs: 3.2 cm LVPWd: 1.3 cm LVOT area: 2.8 cm2 FS: 36.1 % Ao root diam: 3.3 cm LAV(MOD-bp): 96.8 ml LVAd ap4: 25.4 cm2 LAV(MOD-bp) Indexed: 57.7 ml/m2 LVLd ap4: 7.3 cm LAV(MOD-sp2): 125.8 ml EDV(MOD-sp4): 73.3 ml LAV(MOD-sp4): 65.1 ml EDV(sp4-el): 74.8 ml LVAs ap4: 10.3 cm2 LVLs ap4: 5.7 cm ESV(MOD-sp4): 14.9 ml ESV(sp4-el): 15.8 ml EF(MOD-sp4): 79.6 % EF(sp4-el): 78.9 % SV(MOD-sp4): 58.4 ml SV(sp4-el): 59.0 ml LA A4 area: 21.3 cm2 LA dimension(2D): 4.6 cm RA A4 area: 14.2 cm2 Time Measurements MV dec time: 0.26 sec Doppler Measurements & Calculations MV E max bong: 85.2 cm/sec Lat Peak E' Bong: 6.4 cm/sec Med Peak E' Bong: 5.3 cm/sec MV A max bong: 84.4 cm/sec E/E' lat: 13.3 E/E' med: 16.2 MV E/A: 1.0 MV V2 max: 90.2 cm/sec Ao V2 max: 152.5 cm/sec MV max P.3 mmHg MV dec slope: 327.1 cm/sec2 Ao max P.3 mmHg MV V2 mean: 57.9 cm/sec Ao V2 mean: 94.9 cm/sec MV mean P.5 mmHg Ao mean P.3 mmHg MV V2 VTI: 35.1 cm Ao V2 VTI: 37.0 cm AV (velocity ratio): 0.89 MVA(VTI): 2.7 cm2 EMILY(I,D): 2.5 cm2 EMILY(V,D): 2.5 cm2 LV V1 max: 137.1 cm/sec SV(LVOT): 93.3 ml PA V2 max: 110.1 cm/sec LV V1 max P.5 mmHg PA V2 mean: 76.3 cm/sec LV V1 mean P.2 mmHg LV V1 mean: 94.2 cm/sec LV V1 VTI: 32.9 cm ECHO/Echo Complete Interpretation Summary Normal LV size. Left ventricular systolic function is normal. The left ventricular ejection fraction is 60 %. The global longitudinal strain is normal. The global longitudinal strain = -21. 3 % (normal). Ordering Physician: Johny Davila Referring Physician: Johny Davila Performed By: Regina Ramírez RCS
== END | disposition home or self-care (01) ==
LOC: CVS 10:07
PROVIDERS: PCP Internal Medicine; Referring Provider Internal Medicine Gastroenterology; Visit Provider Internal Medicine Gastroenterology
DX: R60.0 Localized edema (principal)
CPT/HCPCS: 93306

== ENCOUNTER → 2024-04-26 | Outpatient (CLI) | payer MEDICARE, OTHER, SELFPAY ==
[2024-04-26 16:24] LABS: ALB/GLOB Ratio 0.8 RATIO (0.9-2.4); AST(SGOT) 25 U/L (15-37); Alanine Aminotransfer ALT/SGPT 25 U/L (13-56); Albumin, Serum 3.4 g/dL (3.2-5.0); Alkaline Phosphatase 147 U/L (45-117); Anion Gap 9 (5-15); BUN 24 mg/dL (7-18); BUN/Creat Ratio 21.1 RATIO (10-20); Calcium,Total 9.8 mg/dL (8.5-10.1); Chloride 95 mmol/L (98-107); Creatinine, Serum 1.14 mg/dL (0.55-1.02); EST Glomerular Filtration Rate 50 mL/min (>60); Est Glom Filt Rate - Afr Amer 60 mL/min (>60); Globulin 4.1 g/dL (2.2-4.2); Glucose 97 mg/dL (74-106); Potassium 4.5 mmol/L (3.5-5.1); Protein, Total 7.5 g/dL (6.4-8.2); Sodium Level 130 mmol/L (136-145)
== END | disposition home or self-care (01) ==
LOC: BIMLAB 14:33
PROVIDERS: PCP Internal Medicine; Referring Provider Internal Medicine; Visit Provider Internal Medicine
DX: M81.0 Age-related osteoporosis without current pathological fracture (principal); K74.60 Unspecified cirrhosis of liver
CPT/HCPCS: 36415; 80053; 82306

== ENCOUNTER → 2024-05-10 | Outpatient (CLI) | payer MEDICARE, OTHER, SELFPAY ==
[2024-05-10 12:39] LABS: Anion Gap 7 (5-15); BUN 16 mg/dL (7-18); BUN/Creat Ratio 20.7 RATIO (10-20); Calcium,Total 9.9 mg/dL (8.5-10.1); Chloride 102 mmol/L (98-107); Creatinine, Serum 0.77 mg/dL (0.55-1.02); EST Glomerular Filtration Rate 78 mL/min (>60); Est Glom Filt Rate - Afr Amer 94 mL/min (>60); Glucose 159 mg/dL (74-106); Potassium 3.8 mmol/L (3.5-5.1); Sodium Level 135 mmol/L (136-145)
[2024-05-11 08:11] LABS: AFP, Tumor Marker 1.9 ng/mL (0.0-9.2)
== END | disposition home or self-care (01) ==
LOC: BIMLAB 09:49
PROVIDERS: Internal Medicine Gastroenterology; PCP Internal Medicine; Referring Provider Internal Medicine; Visit Provider Internal Medicine
DX: K74.60 Unspecified cirrhosis of liver (principal); Z85.3 Personal history of malignant neoplasm of breast; E87.1 Hypo-osmolality and hyponatremia
CPT/HCPCS: 36415; 80048; 82105

== ENCOUNTER 2024-05-15 12:58 | Outpatient (CLI) | payer MEDICARE, OTHER, SELFPAY ==
[2024-05-15 13:10] VITALS: BP 112/66; PULSE 57; RESP 16; TEMP 36.3; O2SAT 97; BMI 26.3
[2024-05-15] MEDS: Romosozumab-AQQG 210 MG/2.34 ML Syringe SC (13:14)
== END 2024-05-15 23:59 | disposition home or self-care (01) ==
LOC: MEDOUTP 12:59
PROVIDERS: PCP Internal Medicine; Referring Provider Internal Medicine; Visit Provider Internal Medicine
DX: M81.0 Age-related osteoporosis without current pathological fracture (principal)
CPT/HCPCS: 96372; J3111

== ENCOUNTER 2024-05-15 13:26 | Emergency (ER) | payer MEDICARE, OTHER, SELFPAY ==
[2024-05-15 13:26] VITALS: BP 127/48; PULSE 56; RESP 18; TEMP 36.2; O2SAT 100
--- NOTE | 2024-05-15 13:51 | RAD_ITS ---
STUDY: X-RAY - LUMBAR SPINE REASON FOR EXAM: Female, 73 years old. Chronic low back pain. TECHNIQUE: 5 view(s) of the lumbar spine were obtained including oblique views. COMPARISON: Comparison is made with prior examination dated July 08, 2021. FINDINGS: Normal lumbar lordosis. There is a dextroscoliosis of the lumbar spine. There is a normal alignment of the vertebrae. There is multilevel endplate spondylosis of the lumbar vertebrae. There is multi-level degenerative disc disease with multi-level disc space narrowing. There is atherosclerotic calcification of the abdominal aorta without a demonstrated aneurysm. RAD/L/S Spine Min 4 Views IMPRESSION: Degenerative changes of the spine, as detailed above. Dextroscoliosis. Electronically Signed: Nahum Kelley MD at 14:32 EDT ,
[2024-05-15] MEDS: Gabapentin 300 MG Capsule PO (13:56)
[2024-05-15] MEDS: oxyCODONE 5 MG Tablet PO (13:56)
--- NOTE | 2024-05-15 14:05 | RAD_ITS ---
STUDY: X-RAY - PELVIS AND RIGHT HIP REASON FOR EXAM: Female, 73 years old. Hip pain following a fall. TECHNIQUE: views of the pelvis and hip. COMPARISON: None. FINDINGS: Moderate amount of fecal material is seen in the colon. Normal visualized soft tissue structures. Normal bilateral iliac wings, sacroiliac joints and visualized sacrum. Normal bilateral superior and inferior pubic rami. Normal pubic symphysis. Normal bilateral ischial tuberosities. The patient is status post left hip replacement. Moderate degree of joint space narrowing of the right hip joint. RAD/HIP, UNI W/ Pelvis 2-3 Views IMPRESSION: Degenerative changes. No fracture or dislocation is seen. Electronically Signed: Nahum Kelley MD at 14:23 EDT ,
--- NOTE | 2024-05-15 14:49 | EX.ED.DYSGE1 ---
HPI History of Present Illness Chief Complaint: Back Informant: patient Narrative Narrative: Patient is a 73-year-old female with past medical history of breast cancer as well as scoliosis and osteoporosis. She states she was undergoing physical therapy recently but that her sessions ran out. She states that following this she went and did a few sessions with her daughter and she denies any sudden onset of pain or trauma but states a few days after her last treatment session she noticed pain in the right hip region that is worse with motion. She states because of her osteoporosis she is concerned about a potential fracture even though there was no trauma and as she is tried [id number] medications without any symptom improvement she presents for evaluation. Patient denies any loss of bowel or bladder control or IV drug use. She denies any recent fevers or obvious soft tissue changes. [facility] Medical History Screening for breast cancer Thrombocytopenia Ascites CHF (congestive heart failure) Dyspnea Skin cancer Encounter for education Wears glasses Cancer Alcohol use Open wound High cholesterol Pulmonary embolism Back pain Injury of back History of ulceration Non-smoker History of edema Breast cancer Abnormal mammogram of left breast Left breast lump Squamous cell skin cancer Umbilical hernia Preoperative evaluation to rule out surgical contraindication Hypokalemia Cellulitis of right leg Screening for thyroid disorder History of skin cancer Ulcer of right leg Hx of staphylococcal infection Hypertension Dermatitis Osteoporosis Hyponatremia Elevated liver enzymes Post-menopausal Varicose veins of both lower extremities Hypotension Age-related physical debility Left hip pain GERD (gastroesophageal reflux disease) Bleeding ulcer Broken hip Carotid stenosis, right Vertigo Arthritis Cirrhosis Home Medications ?Medication ?Instructions ?Recorded ?Last Taken ?Type compress.stocking,knee,reg,lrg #2 ea 05/09/23 Unknown Rx acetaminophen 500 mg capsule 500 mg PO Q6H PRN pain 06/08/23 Unknown History calcium carbonate 600 mg-vitamin 1 tab PO BID 12/27/23 12/25/23 History D3 5 mcg (200 unit) tablet (Calcium 600 + D(3)) nadolol 20 mg tablet 20 mg PO DAILY BP 12/27/23 12/25/23 History ascorbic acid (vitamin C) 500 mg 500 mg PO BID #60 tabs 12/30/23 Unknown Rx tablet furosemide 40 mg tablet 40 mg PO BID DIURETIC #180 tabs 03/18/24 Unknown Rx spironolactone 50 mg tablet 50 mg PO BID #180 tabs 03/18/24 Unknown Rx potassium chloride 20 mEq 20 meq PO BID SUPPLEMENT #90 tabs 03/20/24 Unknown Rx tablet,extended release(part/cryst) anastrozole 1 mg tablet 1 mg PO DAILY #90 tabs 04/22/24 Unknown Rx pantoprazole 40 mg tablet,delayed 40 mg PO DAILY GERD 3 months #90 04/25/24 Unknown Rx release tabs romosozumab-aqqg 210 mg/2.34 210 mg (2.34 mL) subcut QMONTH 12 04/26/24 Unknown Rx mL(105 mg/1.17 mL x2)subcutaneous months #28.08 mL syringe (Evenity) gabapentin 300 mg capsule 300 mg PO TID 30 days #90 caps 05/15/24 Unknown Rx methocarbamol 500 mg tablet 500 mg PO 4X/DAY PRN Muscle 05/15/24 Unknown Rx pain/spasm #40 tabs oxycodone 5 mg tablet 5 mg PO Q6H PRN pain 3 days #12 05/15/24 Unknown Rx tabs Allergy/AdvReac Type Severity Reaction Status Date / Time No Known Allergies Allergy Verified 05/15/24 13:26 Family History Mother Alzheimer disease Father Heart disease Diabetes Surgical History History of left mastectomy Hx of tonsillectomy Status post Mohs surgery History of left hip replacement History of knee replacement History of hysterectomy Social History housing: house Smoking Status: Never smoker alcohol intake: former substance use type: does not use ROS ROS ED Constitutional Constitutional ED: Denies chills or fever(s) ENT ENT ED: Denies sore throat Cardiovascular Cardiovascular: Denies chest pain Respiratory/Chest Respiratory/Chest: Denies cough or dyspnea Gastrointestinal Gastrointestinal: Denies abdominal pain, diarrhea, nausea or vomiting Genitourinary Genitourinary ED: Denies dysuria, hematuria or urinary frequency Musculoskeletal Musculoskeletal: Reports back pain and other Details: Positive right hip pain Integumentary Denies rash Neurologic Neurologic: Denies headache(s) or paresthesias Hematologic/Lymphatic Hematologic/Lymphatic: Denies easy bleeding or easy bruising EXAM Physical Exam Const Vital Signs: 05/15/24 13:26 05/15/24 15:01 Temperature 97.2 F L 96.2 F L Temperature Source Temporal Pulse Rate 56 L 60 Respiratory Rate 18 16 Blood Pressure 127/48 H 127/52 H Blood Pressure Mean 74 77 Pulse Ox 100 99 Oxygen Delivery Method Room Air Positive well nourished and well developed General Appearance ED: well developed HEENT HEENT Narrative: Normocephalic atraumatic Eyes PERRL and EOMs intact bilaterally General Eye ED: Negative for scleral icterus Neck supple Resp normal respiratory effort and clear to auscultation bilaterally Cardio regular rate and regular rhythm GI normal to inspection, nondistended, normoactive bowel sounds, non-tender, non-distended and no masses Auscultation: normoactive bowel sounds Palpation: soft Back/Spine Back/Spine Narrative: Scoliosis is noted of the spine without midline tenderness No saddle anesthesia Negative straight leg raise No clonus or Babinski Patellar reflexes are plus 1 out of 4 bilaterally Extremity Extremity Narrative: Patient has +2-3 pitting edema to the bilateral lower extremities which is chronic in nature There is pain with palpation along the piriformis muscle and greater trochanter of the right hip. Pain increases with active extension and rotation as well as flexion of the right hip. Pain is minimal with passive motion. There is no overlying erythema or warmth or rash to suggest infectious process and no ecchymosis is noted either. Neuro oriented x3 and CN's II-XII intact bilaterally Sensorium / Orientation: alert Psych mental status grossly normal Skin Skin Narrative: Patient has chronic stasis changes to the bilateral lower legs but otherwise no secondary changes to suggest trauma or infection MDM MDM MDM Narrative Medical decision making narrative: Patient arrived to ER with increasing pain of the right hip with no trauma but report of excessive activity/working out. Differential diagnosis is for hip strain versus avulsion fracture versus stress fracture versus lumbar radiculopathy versus compression fracture of the lumbar spine versus pathologic fracture. Patient does not have overlying soft tissue changes to suggest shingles or infectious process such as cellulitis or abscess so I felt no need for laboratory studies but with concern potential underlying bony derangement x-rays were obtained. X-rays revealed degenerative changes without acute fracture or dislocation indicating symptoms are most likely musculoskeletal in nature. Therefore should be given symptomatic care but without signs of neurovascular compromise infection or trauma there is no need for further workup and she is otherwise safe for discharge. History & Record Review Discussion w/independent historian: Patient Radiography Diagnostic Testing: Clinical Impression(s) from Imaging Studies Lumbar Spine X-Ray 05/15/24 13:51 IMPRESSION: Degenerative changes of the spine, as detailed above. Dextroscoliosis. Electronically Signed: Nahum Kelley MD at 14:32 EDT , Hip/Pelvis X-Ray 05/15/24 14:05 IMPRESSION: Degenerative changes. No fracture or dislocation is seen. Electronically Signed: Nahum Kelley MD at 14:23 EDT , X-ray of the lumbosacral spine as interpreted by the emergency medicine physician reveals degenerative changes with scoliosis without acute compression fracture X-ray of the right hip with 1 view pelvis as interpreted by the emergency medicine physician reveals osteoporosis/osteoarthritic changes without acute fracture or dislocation. Discharge Plan Triage Chief Complaint: Back ED Provider: Jose Angel Cerna Dx/Rx/DC Orders Clinical Impression: Scoliosis, Strain of muscle, fascia and tendon of right hip, initial encounter, Degenerative disc disease, lumbar, GERD (gastroesophageal reflux disease) Instructions: ED Degenerative Disk Disease, ED Hip Strain, ED Osteoarthritis Prescriptions: New oxycodone 5 mg tablet 5 mg PO Q6H PRN (Reason: pain) 3 Days Qty: 12 0RF gabapentin 300 mg capsule 300 mg PO TID 30 Days Qty: 90 0RF methocarbamol 500 mg tablet 500 mg PO 4X/DAY PRN (Reason: Muscle pain/spasm) Qty: 40 1RF No Action Evenity 210mg/2.34mL ( 105mg/1.17mLx2) syringe 210 mg subcut QMONTH 360 Days Qty: 28.08 0RF acetaminophen 500 mg capsule 500 mg PO Q6H PRN (Reason: pain) calcium carbonate-vitamin D3 [Calcium 600 + D(3)] 600 mg-5 mcg (200 unit) tablet 1 tab PO BID nadolol 20 mg tablet 20 mg PO DAILY ascorbic acid (vitamin C) 500 mg tablet 500 mg PO BID Qty: 60 2RF (DME) compress.stocking,knee,reg,lrg Misc See Rx Instructions .MEDSUPPLY Qty: 2 1RF Rx Instructions: wear daily for venous insufficiency 20-30 mmHg furosemide 40 mg tablet 40 mg PO BID Qty: 180 0RF spironolactone 50 mg tablet 50 mg PO BID Qty: 180 0RF potassium chloride 20 mEq tablet,ER particles/crystals 20 meq PO BID Qty: 90 1RF anastrozole 1 mg tablet 1 mg PO DAILY Qty: 90 4RF pantoprazole 40 mg tablet,delayed release (DR/EC) 40 mg PO DAILY 90 Days Qty: 90 1RF Primary Care Provider: Ernesto Rodriguez Referrals: Ernesto Rodriguez MD [Primary Care Provider] - Activity Restrictions/Additional Instructions: Please continue to stretch and heat your right hip and low back to reduce pain and speed healing. Take the prescribed medications as directed to control symptoms and if they persist discuss with your family doctor and orthopedic referral as you may need MRI or injection into the joint to control symptoms. Return to the ER should you have any further concern Print Language: Khmer Disposition Disposition: Home, Self Care Discharge Date/Time: 05/15/24 15:07
[2024-05-15 15:01] VITALS: BP 127/52; PULSE 60; RESP 16; TEMP 35.7; O2SAT 99
== END 2024-05-15 15:07 | disposition home or self-care (01) ==
PROVIDERS: Emergency Provider Emergency Medicine; PCP Internal Medicine; Visit Provider Emergency Medicine
DX: M41.9 Scoliosis, unspecified (principal); I11.0 Hypertensive heart disease with heart failure; I50.9 Heart failure, unspecified; S76.011A Strain of muscle, fascia and tendon of right hip, initial encounter; M51.36 Other intervertebral disc degeneration, lumbar region; K21.9 Gastro-esophageal reflux disease without esophagitis; M81.0 Age-related osteoporosis without current pathological fracture; Z86.711 Personal history of pulmonary embolism; X58.XXXA Exposure to other specified factors, initial encounter
CPT/HCPCS: 72110; 73502; 96372; 99284; J3111

== ENCOUNTER → 2024-05-31 | Outpatient (CLI) | payer MEDICARE, OTHER, SELFPAY ==
[2024-05-31] VITALS (13 sets, daily range): BP systolic 108–162; BP diastolic 48–71; PULSE 58–64; RESP 9–18; TEMP 36.3; O2SAT 95–100; BMI 27.4
--- NOTE | 2024-05-31 | ASPIGT_PTH ---
PATIENT: MARY ALICE GA LOC: CT U#:[id number] AGE/SX: 73/F ROOM: RE05/31/[address]: Dr. Johny Davila DO : 1950 BED: DIS: 05/31/2024 SPEC #: [id number] RECD: 05/31/24 12:06 STATUS: KATHRYN REStephan #: [id number] TED: 05/31/24 00:[address]: Johny Davila DEPT: SURGICAL PATHOLOGY RECD BY: Lamont Rizo ENTERED: 05/31/24 12:06 SP TYPE: ASP RAD OTHR DR: Dr. Ernesto Rodriguez MD Tissues: Liver, NOS Procedures: PAS with Diastase (control) FNA Specimen Adequacy Trichrome (control) Special Stain Group II Special Stain Group I PAS Stain (control) Surgery Specimen Level IV Surgery Specimen Level V Retic (control) Iron Stain (control) Imprint (control) HEADER OPERATION: CT guided liver biopsy PRE-OP DIAGNOSIS: Cirrhosis TISSUE SUBMITTED: 18 gauge x 3 biopsy MICROSCOPIC DIAGNOSIS Liver, needle core biopsy: Cirrhosis. Chronic hepatitis, Grade 3 (modified Knodell scoring system). See microscopic description and comment. AMLily 06/03/2024 MICROSCOPIC DESCRIPTION Trichrome and reticulin stains reveal broad band fibrosis consistent with cirrhosis. PAS with PASD stains do not reveal accumulation of abnormal proteins. Iron stain does not reveal accumulation of iron in hepatic parenchyma. All matched controls are appropriate. GROSS DESCRIPTION Received is one container labeled with the patient's name and not further designated. The specimen consists of multiple elongated fragments of cruz soft tissue that in aggregate measure 1.5 x 0.2 x 0.1 cm. The specimen is totally submitted in one cassette. 05/31/2024 TC:3 CPT:15002,28592b6
[2024-05-31 08:10] LABS: Platelet Count 167 K/mm3 (150-450)
[2024-05-31 08:36] LABS: International Normalized Ratio 1.3; Prothrombin Time (Protime)PT. 15.8 SECONDS (11.7-14.9)
[2024-05-31 08:37] LABS: Partial Thromboplast Time 38.4 Seconds (24.1-36.2)
[2024-05-31] MEDS: 0.9% Normal Saline (250mL Bag) 250 ML 15 ML IV (08:57)
[2024-05-31] MEDS: 0.9% Saline Lock 10 ML Syringe IV (08:57)
[2024-05-31] MEDS: Midazolam 2 MG/2 ML Syringe IV (08:58)
[2024-05-31] MEDS: fentaNYL 100 MCG/2 ML Ampul IV (09:01)
[2024-05-31] MEDS: Lidocaine 2% (20 ml mdv) 20 ML Vial INFILT (09:10)
--- NOTE | 2024-05-31 10:52 | PCM.OP.PRO ---
Procedure Report Date of Procedure: 05/31/24 Assessment & Plan Assessment/Plan (1) Cirrhosis: QUALIFIERS: Hepatic cirrhosis type: alcoholic cirrhosis Ascites presence: without ascites Qualified Code(s): K70.30 - Alcoholic cirrhosis of liver without ascites PLAN: PROCEDURE: CT DIRECTED CORE LIVER BIOPSY ORDERING PROVIDER: Dr. Davila INDICATION: Female, 73 years old. Liver cirrhosis. PROVIDER: VIANCA Ayers CONSENT: Written informed consent was obtained having explained the risks, benefits and alternatives in detail with the patient who accepted the risks and agreed to proceed. Laboratory review and clinical assessment was performed. PRE-PROCEDURE SEDATION ASSESSMENT: Current history and physical dictated by referring provider and reviewed. No clinical changes since date of exam. Patient has a Mallampati Score of Class 1 and ASA Class of 2. PROCEDURAL SEDATION PROTOCOL: The Drugs used were: 2 mg Versed, IV, and 50 mcg Fentanyl, IV. The sedation time was: 22 minutes, starting at 8:58 AM and terminated at 9:20 AM. The procedural sedation protocol was independently monitored by the department nurse. RADIATION DOSAGE (If Supplied By Facility): CTDIvol = 15.77 mGy, DLP = 305.26 mGycm Individualized dose optimization techniques were used for this CT. TECHNIQUE The patient was placed in a supine position. Using CT image guidance with image documentation, a suitable location in the right lobe of the liver was identified. The skin surface was prepped with chlorhexidine and draped in a sterile fashion. 2% lidocaine was used for local anesthesia. Using an anterior approach, puncture of the liver was uneventful with an 18-gauge core needle system. 3, 18-gauge core samples were obtained, and submitted in formalin to the pathologist for further assessment. The needle was removed. An occlusive sterile dressing was applied. Patient tolerated the procedure well, and returned to the holding bay for nursing monitoring. IMPRESSION: CT directed core needle biopsy of the liver, using CT image guidance with image documentation as described. Procedural Sedation protocol utilized with independent monitoring. Procedures Radiology Radiology US Procedures: [id number] Liver Biopsy Multi Select Codes Radiology Radiology CT Procedures: [id number] CT guidance parenchymal tissue
== END | disposition home or self-care (01) ==
LOC: CT 07:56
PROVIDERS: Nurse Practitioner Acute Care; PCP Internal Medicine; Referring Provider Internal Medicine Gastroenterology; Visit Provider Internal Medicine Gastroenterology
DX: Z01.818 Encounter for other preprocedural examination (principal); K74.60 Unspecified cirrhosis of liver; K73.9 Chronic hepatitis, unspecified
CPT/HCPCS: 47000; 36415; 77012; 85049; 85610; 85730; 88172; 88305; 88307; 88312; 88313; 99156; J7050; A4216

== ENCOUNTER → 2024-06-14 | Outpatient (CLI) | payer MEDICARE, OTHER, SELFPAY ==
--- NOTE | 2024-06-14 07:49 | BI_ITS ---
MAMMOGRAPHY - UNILATERAL SCREENING: RIGHT BREAST REASON FOR EXAM: Female, 73 years old. Routine annual screening examination (unilateral). PERTINENT HISTORY: Personal history of breast cancer. Prior left mastectomy. TECHNIQUE: Digital unilateral breast roberta (3D mammographic acquisition) in the CC and MLO projections. 2-D mediolateral oblique (MLO) and craniocaudad (CC) views of both breasts were obtained. CAD: Full Field Digital Mammography with Computer Added Detection was performed. COMPARISON: Comparison is made with prior study June 24, 2019. FINDINGS: Breast Composition: The breasts are heterogeneously dense, which may obscure small masses. There are no dominant masses or suspicious calcifications. Stable secretory calcification. No other significant abnormalities are identified. There has been no significant change since the prior study. BI/SCREEN MAMM (CAD) W/ROBERTA UNI R IMPRESSION: Stable unilateral screening mammogram. Yearly follow-up mammogram recommended. (A) ASSESSMENT CATEGORY: BIRADS Category 2: Benign. A letter regarding these results will be sent to the patient by the facility within 30 days. Approximately 10% of breast cancers are not detected by mammography. A normal mammogram should not delay biopsy of a clinically suspicious abnormality. [id number] Electronically Signed: Nahum Kelley MD at 9:20 EDT ,
== END | disposition home or self-care (01) ==
LOC: OPBI 07:44
PROVIDERS: PCP Internal Medicine; Referring Provider Nurse Practitioner Family; Visit Provider Nurse Practitioner Family
DX: Z12.31 Encounter for screening mammogram for malignant neoplasm of breast (principal)
CPT/HCPCS: 77063; 77067

== ENCOUNTER 2024-06-17 13:05 | Outpatient (CLI) | payer MEDICARE, OTHER, SELFPAY ==
[2024-06-17 13:32] VITALS: BP 125/57; PULSE 54; RESP 16; TEMP 36.2; O2SAT 100; BMI 26.3
[2024-06-17] MEDS: Romosozumab-AQQG 210 MG/2.34 ML Syringe SC (14:07)
== END 2024-06-17 23:59 | disposition home or self-care (01) ==
LOC: MEDOUTP 13:05
PROVIDERS: PCP Internal Medicine; Referring Provider Internal Medicine; Visit Provider Internal Medicine
DX: M81.0 Age-related osteoporosis without current pathological fracture (principal)
CPT/HCPCS: 96372; J3111

== ENCOUNTER 2025-01-31 10:25 | Outpatient (CLI) | payer MEDICARE, OTHER, SELFPAY ==
[2025-01-31 11:07] VITALS: BP 123/70; PULSE 70; RESP 16; TEMP 36.1; O2SAT 100; BMI 25.3
[2025-01-31] MEDS: Romosozumab-AQQG 210 MG/2.34 ML Syringe SC (11:11)
== END 2025-01-31 23:59 | disposition home or self-care (01) ==
LOC: MEDOUTP 10:26
PROVIDERS: PCP Internal Medicine; Referring Provider Internal Medicine; Visit Provider Internal Medicine
DX: M81.0 Age-related osteoporosis without current pathological fracture (principal)
CPT/HCPCS: 96372; J3111

== ENCOUNTER 2025-02-24 14:23 | Outpatient (RCR) | payer MEDICARE, OTHER, SELFPAY ==
[2025-02-24 15:30] LABS: Absolute Lymphocyte Count 0.74 X10^3/uL (0.83-4.51); Absolute Neutrophil Count 2.1 X10^3/uL (2.0-7.7); Basophil# 0.04 X10^3/uL; Basophil% 1.1 % (0-1); Eosinophil# 0.25 X10^3/uL; Eosinophils% 7.1 % (0-5); Hematocrit 29.9 % (37-47); Hemoglobin 10.8 g/dL (12.0-15.0); Lymphocyte # 0.74 X10^3/ul (0.83-4.51); Lymphocyte % 21.1 % (19-41); Mean Corp Hgb Conc 36.1 g/dL (32-36); Mean Corpuscular Hgb 36.9 pg (27.0-32.0); Mean Platelet Vol. 9.8 fl (6.2-12.0); Monocyte# 0.41 X10^3/uL; Monocyte% 11.7 % (0-10); NRBC Flagged by Analyzer 0 % (0-5); Neutrophil # 2.05 X10^3/uL (2.7-7.7); Neutrophil % 58.7 % (47-70); POSITIVE COUNT YES; Platelet Count 89 K/mm3 (150-450); RBC Distribution Width CV 13.6 % (11.6-14.6); RBC Distribution Width SD 51.1 fl (35.1-43.9); Red Blood Count 2.93 M/mm3 (4.2-5.4); White Blood Count 3.5 K/mm3 (4.4-11.0)
[2025-02-24 15:32] LABS: Differential Indicated SCAN CRITERIA MET
[2025-02-24 15:46] LABS: Alanine Aminotransfer ALT/SGPT 30 U/L (<=34); EST Glomerular Filtration Rate 99 (>60)
[2025-02-24 20:00] LABS: Differential Comment SCANNED
[2025-02-24 20:01] LABS: Platelet Estimate MOD DEC (ADEQ)
== END 2025-02-24 18:00 | disposition home or self-care (01) ==
LOC: HHLAB 14:23
PROVIDERS: PCP Internal Medicine; Referring Provider Internal Medicine; Visit Provider Internal Medicine
DX: L03.115 Cellulitis of right lower limb (principal)
CPT/HCPCS: 82565; 84460; 85025

== ENCOUNTER 2025-02-28 11:26 | Outpatient (CLI) | payer MEDICARE, OTHER, SELFPAY ==
[2025-02-28] MEDS: Romosozumab-AQQG 210 MG/2.34 ML Syringe SC (12:13)
[2025-02-28 12:14] VITALS: BP 113/48; PULSE 66; RESP 16; TEMP 35.9; O2SAT 98; BMI 25.4
== END 2025-02-28 23:59 | disposition home or self-care (01) ==
LOC: MEDOUTP 11:26
PROVIDERS: PCP Internal Medicine; Referring Provider Internal Medicine; Visit Provider Internal Medicine
DX: M81.0 Age-related osteoporosis without current pathological fracture (principal)
CPT/HCPCS: 96372; J3111

== ENCOUNTER 2025-03-28 11:59 | Outpatient (CLI) | payer MEDICARE, OTHER, SELFPAY ==
[2025-03-28 12:14] VITALS: BP 122/60; PULSE 62; RESP 16; TEMP 36.2; O2SAT 99; BMI 25.4
== END 2025-03-28 23:59 | disposition home or self-care (01) ==
LOC: MEDOUTP 12:00
PROVIDERS: PCP Internal Medicine; Referring Provider Internal Medicine; Visit Provider Internal Medicine
DX: M81.0 Age-related osteoporosis without current pathological fracture (principal)
CPT/HCPCS: 96372; J3111

== ENCOUNTER 2025-04-25 12:44 | Outpatient (CLI) | payer MEDICARE, OTHER, SELFPAY ==
[2025-04-25 13:01] VITALS: BP 103/57; PULSE 70; RESP 16; TEMP 36.2; O2SAT 99; BMI 24.5
== END 2025-04-25 23:59 | disposition home or self-care (01) ==
LOC: MEDOUTP 12:44
PROVIDERS: PCP Internal Medicine; Referring Provider Internal Medicine; Visit Provider Internal Medicine
DX: M81.0 Age-related osteoporosis without current pathological fracture (principal)
CPT/HCPCS: 96372; J3111

== ENCOUNTER → 2025-05-13 | Outpatient (CLI) | payer MEDICARE, OTHER, SELFPAY ==
--- NOTE | 2025-05-13 14:37 | MRI_ITS ---
PROCEDURE: SPINE LUMBAR (ROUTINE) 05/13/2025 REASON FOR EXAM: PAIN, STENOSIS, WORSENING WALKING TOLERANCE TECHNIQUE: Procedure Code: MRISPL Modality: MR Procedure: SPINE LUMBAR (ROUTINE) COMPARISON: Radiographs of the lumbar spines dated 05/08/2025 FINDINGS: Vertebrae: Compression deformities at T12 and L3 status post vertebral augmentation. Old compression deformity of L1 with no associated bone marrow edema. Remaining bone marrow signal is heterogeneous but otherwise without focal mass. There is no evidence to suggest an acute fracture. 5 lumbar-type vertebral bodies identified. Alignment: Lumbar lordosis preserved. There is no corine or retrolisthesis. Mild scoliosis present concave to the left apex at L1. There is slight kyphosis at the T11-T12 disc space level.. Conus Medullaris: Ends normally at T12-L1. The distal spinal cord is otherwise unremarkable. T12-L1: Mild disc disease. No central stenosis. Mild left foraminal encroachment more so than right. L1-2: Mild disc bulge. Facet arthropathy and ligamentum flavum hypertrophy. Moderate left foraminal encroachment without impingement. L2-3: Mild degenerative disc disease and disc desiccation with diffuse disc bulge. Facet arthropathy and ligamentum flavum hypertrophy. No significant central stenosis. Severe left foraminal encroachment. L3-4: Diffuse disc disease and disc bulge with facet arthropathy ligamentum flavum hypertrophy. No significant central stenosis. Severe left foraminal encroachment. L4-5: Diffuse disc desiccation and diffuse disc bulge. Severe facet arthropathy and ligamentum flavum hypertrophy with [id number] central stenosis. Mild bilateral foraminal encroachment. L5-S1: Degenerative disc disease and diffuse bulge with bilateral foraminal encroachment [id number]-left. Severe facet arthropathy [id number]. Sacrum: Visible SI joints and sacrum appear otherwise unremarkable. Paraspinal soft tissues are within normal limits. No lymphadenopathy or aneurysm seen. MRI/Spine Lumbar (Routine) IMPRESSION: Old compression fracture deformity of L1 with no bone marrow edema. Status post vertebral augmentation at T12 and L2. Scoliosis and slight kyphosis centered at T11-T12. There is left foraminal stenoses from T12-L1 through L3-4 with varying degrees of mass effect on the exiting nerve roots. There is moderate stenosis at L4-5 due to a combination of disc bulge and facet arthropathy. Severe right facet arthropathy at L5-S1 accounting for right foraminal encroach ment with mass effect on the exiting right L5 nerve. Reading Location: [facility]
== END | disposition home or self-care (01) ==
LOC: MRI 14:00
PROVIDERS: PCP Internal Medicine; Referring Provider Student in an Organized Health Care Education/Training Program; Visit Provider Student in an Organized Health Care Education/Training Program
DX: M48.062 Spinal stenosis, lumbar region with neurogenic claudication (principal); S32.050A Wedge compression fracture of fifth lumbar vertebra, initial encounter for closed fracture; Z98.890 Other specified postprocedural states
CPT/HCPCS: 72148

== ENCOUNTER → 2025-05-21 | Outpatient (CLI) | payer MEDICARE, OTHER, SELFPAY ==
[2025-05-21 12:55] LABS: AST(SGOT) 62 U/L (<=31); Alanine Aminotransfer ALT/SGPT 18 U/L (<=34); Albumin, Serum 3.2 g/dL (3.4-4.8); Alkaline Phosphatase 284 U/L (35-104); Anion Gap 13 (5-15); BUN 9 mg/dL (4-19); BUN/Creat Ratio 12.2 RATIO (10-20); Calcium,Total 9.4 mg/dL (7.6-11.0); Carbon Dioxide 28.3 mmol/L (21.0-32.0); Chloride 83 mmol/L (98-108); Globulin 2.9 g/dL (2.2-4.2); Glucose 117 mg/dL (70-99); Potassium 3.7 mmol/L (3.3-5.1); Pro- Brain NATRIURETIC PEPTIDE 613 pg/mL (<=900)
== END | disposition home or self-care (01) ==
LOC: BIMLAB 09:04
PROVIDERS: Physician Assistant; PCP Internal Medicine; Referring Provider Internal Medicine; Visit Provider Internal Medicine
DX: R06.00 Dyspnea, unspecified (principal); I10 Essential (primary) hypertension
CPT/HCPCS: 36415; 80053; 83880; 84443

== ENCOUNTER 2025-06-06 16:22 | Emergency (ER) | payer MEDICARE, OTHER, SELFPAY ==
[2025-06-06 16:23] VITALS: BP 119/45; PULSE 57; RESP 14; TEMP 36.5; O2SAT 97
--- OUTSIDE RECORDS SUMMARY | 2025-06-06 18:06 | XMS RPT_ITS | CCD ---
Author Organization [facility] Care Team Providers Care Quality Controller Name Role Phone LILI ALVAREZ Unavailable Unavailable LILI ALVAREZ Unavailable Unavailable Unavailable Primary Care Provider Unavailmatheus Dickerson MD, Juve Unavailable Unavailable Care Physician, No Primary Primary Care Provider Unavailable Care Physician, No Primary Referring Provider Un available Dr. Khanh Rodriguez Attending Provider [phone] Dr. Khanh Rodriguez Primary Care Provider [phone] Dr. Khanh Rodriguez Referring Provider [phone] Abdirahman Conley Primary Care Provider Dr. Khanh Rodriguez Primary Care Provider [phone] Dr. Khanh Rodriguez Attending Provider [phone] Dr. Khanh Rodriguez Referring Provider [phone] JIMMY Rivera Attending Provider JIMMY Flores Attending Provider Dr. Uday Brooks Attending Provider Dr. Khanh Rodriguez Primary Care Provider [phone] Dr. Khanh Rodriguez Attending Provider [phone] Dr. Khanh Rodriguez Referring Provider [phone] Dr. Nabeel Patel Attending Provider Rosales Dickerson MD, Dr. Cyril Attending Provider Dr. Uday Brooks Referring Provider Dr. Uday Brooks Admit Provider Dr. Uday Brooks Other Provider JOSE ALEJANDRO Carroll Attending Provider Martines CASTING REPAIRER, CASTING REPAIRER-C Mariela Referring Provider Martines CASTING REPAIRER, CASTING REPAIRER-C Mariela Other Provider Chio CASTING REPAIRER, CASTING REPAIRER-C Thalia E Attending Provider [phone] Dr. Khanh Rodriguez Primary Care Provider Dr. Jacob Amor Attending Provider Dr. Uday Brooks Referring Provider CeDr. Uday clemens Admit Provider Dr. Uday Brooks Attending Provider Dr. Uday Brooks Other Provider JOSE ALEJANDRO Carroll Attending Provider Dr. Khanh Rodriguez Referring Provider Martines CASTING REPAIRER, CASTING REPAIRER-C Mariela Other Provider Chio CASTING REPAIRER, CASTING REPAIRER-C Thalia E Attending Provider Chio CASTING REPAIRER, CASTING REPAIRER-C Thalia E Referring Provider Dr. Nabeel Patel Attending Provider Dr. Alex Ha Attending Provider Orlando CASTING REPAIRER, CASTING REPAIRER-C Cesia Attending Provider Dr. Shabbir Galaviz Attending Provider Dr. Khanh Rodriguez Primary Care Provider Dr. Khanh Rodriguez Referring Provider [phone] JOSE ALEJANDRO Carroll Attending Provider Dr. Uday Brooks Attending Provider Dr. Khanh Rodriguez Primary Care Provider [phone] Dr. Khanh Rodriguez Referring Provider [phone] JOSE ALEJANDRO Carroll Attending Provider JIMMY Flores Referring Provider [phone] Shabbir Galaviz Referring Provider [phone] Shabbir Galaviz Other Provider Dr. Khanh Rodriguez Primary Care Provider [phone] Dr. Khanh Rodriguez Referring Provider [phone] Conrad CASTING REPAIRER, CASTING REPAIRER-C Mariela Other Provider Chio CASTING REPAIRER, CASTING REPAIRER-C Thalia E Attending Provider Chio CASTING REPAIRER, CASTING REPAIRER-C Thalia E Referring Provider Dr. Shabbir Galaviz Referring Provider [phone] JIMMY Flores Attending Provider [phone] Khanh Rodriguez Attending Provider [phone] Dr. Khanh Rodriguez Primary Care Provider [phone] Dr. Khanh Rodriguez Referring Provider [phone] Dr. Khanh Rodriguez Primary Care Provider [phone] Dr. Khanh Rodriguez Referring Provider [phone] Dr. Uday Brooks Attending Provider [place] CASTING REPAIRER, CASTING REPAIRER-C Cesia Attending Provider Dr. Shabbir Galaviz Attending Provider [phone] JIMMY Flores Referring Provider [phone] Shabbir Galaviz Referring Provider [phone] Shabbir Galaviz Other Provider JIMMY Flores Attending Provider Dr. Khanh Rodriguez Attending Provider [phone] Bonifacio Nation Attending Provider JIMMY Méndez Attending Provider [phone] Dr. Khanh Rodriguez Primary Care Provider [phone] Dr. Khanh Rodriguez Referring Provider [phone] Dr. Yair Lazcano Emergency Provider Judson, Dr. Terry Admit Provider Dr. Harrison Roper Attending Provider Judson, Dr. Terry Other Provider SAMUEL Glez Attending Provider Friend, Dr. Mcclain Attending Provider Dr. Harrison Roper Referring Provider Tuan ARAUJO, Rosales Unavailable Unavailable Tuan ARAUJO, Rosales Unavailable Unavailable Abdirahman Conley MD Primary Care Provider [phone] Khanh Rodriguez MD Primary Care Provider [phone] Tuan, Rosales Primary Care Unavailable Tuan, Rosales Attending Unavailable Tuan, Rosales Primary Care Unavailable Tuan, Rosales Attending Unavailable Tuan, Rosales Attending Unavailable Tuan, Rosales Primary Care Unavailable Tuan, Rosales Primary Care Unavailable Tuan, Rosales Attending Unavailable Tuan, Rosales Primary Care Unavailable Tuan, Rosales Attending Unavailable Tuan ARAUJO, Rosales Unavailable Unavailable Tuan ARAUJO, Rosales Unavailable Unavailable OLEGHGloria, EFEWONGBE B Primary Care Unavailable SOLO CALDERÓN Referring Unavailable LISETH ALANIS Attending Unavailable OLEGHE, EFEWONGBE B Primary Care Unavailable MARISELA MCCARTY Attending Unavailable REYNALDOGHE, EFEWONGBE B Primary Care Unavailable GT YIN Referring Unavailable OLEGHE, EFEWONGBE B Primary Care Unavailable GT YIN Referring Unavailable GT YIN Attending Unavailable OLEGHE, EFEWONGBE B Primary Care Unavailable MARISELA MCCARTY Referring Unavailable MONSE MERLOS Attending Unavailable OLEGHE, EFEWONGBE B Primary Care Unavailable GT YIN Attending Unavailable OLEGHE, EFEWONGBE B Primary Care Unavailable WAYT, SOLO P Referring Unavailable O'CARLOS, LISETH Attending Unavailable OLEGHE, EFEWONGBE B Primary Care Unavailable WAYT, SOLO P Referring Unavailable O'CARLOS, LISETH Attending Unavailable JARVIS ABDIRAHMAN J Primary Care Unavailable WAYT, SOLO P Referring Unavailable O'CARLOS, LISETH Attending Unavailable OLEGHE, EFEWONGBE B Primary Care Unavailable WAYT, SOLO P Referring Unavailable O'CARLOS, LISETH Attending Unavailable OLEGHE, EFEWONGBE B Primary Care Unavailable WAYT, SOLO P Referring Unavailable O'CARLOS, LISETH Attending Unavailable OLEGHE, EFEWONGBE B Primary Care Unavailable WAYT, SOLO P Referring Unavailable O'CARLOS, LISETH Attending Unavailable OLEGHE, EFEWONGBE B Primary Care Unavailable WAYT, SOLO P Referring Unavailable O'CARLOS, LISETH Attending Unavailable OLEGHE, EFEWONGBE B Primary Care Unavailable WAYT, SOLO P Referring Unavailable O'CARLOS, LISETH Attending Unavailable OLEGHE, EFEWONGBE B Primary Care Unavailable WAYT, SOLO P Referring Unavailable O'ACRLOS, LISETH Attending Unavailable OLEGHE, EFEWONGBE B Primary Care Unavailable WAYT, SOLO P Referring Unavailable O'CARLOS, LISETH Attending Unavailable OLEGHE, EFEWONGBE B Primary Care Unavailable WAYT, SOLO P Referring Unavailable O'CARLOS, LISETH Attending Unavailable Michael ARAUJO, Dr. Orozco Primary Care Provider Dr. Khanh Rodriguez MD Referring Provider [phone] Solo Méndez Attending Provider Dr. Nabeel Patel MD Attending Provider Dr. Nabeel Patel MD Referring Provider Michael ARAUJO, Dr. Orozco Attending Provider [phone] Lorri ARAUJO, Dr. Spicer Attending Provider [phone] Lorri ARAUJO, Dr. Spicer Referring Provider India CASTING REPAIRER-CLiseth Attending Provider Jessica PA, Tracy Attending Provider [phone] Mt ARAUJO, Dr. James Attending Provider Jessica PA, Tracy Unavailable Michael ARAUJO, Dr. Orozco Primary Care Physician Solo Méndez Attending Physician Amanda ARAUJO, Dr. Lees Attending Physician Michael ARAUJO, Dr. Orozco Attending Physician [phone] Lorri ARAUJO, Dr. Spicer Attending Physician [phone] India CASTING REPAIRER-CLiseth Attending Physician Jessica PA, Tracy Attending Physician Mt ARAUJO, Dr. James Attending Physician Jessica PA, Tracy Referring Provider [phone] Oleghe, Efewongbe Attending Unavailable Oleghe, Efewongbe Primary Care Unavailable Oleghe, Efewongbe Referring Unavailable Oleghe, Efewongbe Primary Care Unavailable Oleghe, Efewongbe Referring Unavailable Oleghe, Efewongbe Attending Unavailable Jessica, Tracy Referring Unavailable Jessica, Tracy Attending Unavailable Oleghe, Efewongbe Primary Care Unavailable Oleghe, Efewongbe Referring Unavailable Oleghe, Efewongbe Primary Care Unavailable Oleghe, Efewongbe Attending Unavailable Oleghe, Efewongbe Primary Care Unavailable Oleghe, Efewongbe Referring Unavailable Oleghe, Efewongbe Attending Unavailable Oleghe, Efewongbe Primary Care Unavailable Nabeel Patel Referring Unavailable Nabeel Patel Attending Unavailable Oleghe, Efewongbe Primary Care Unavailable Nayan Blackmon Referring Unavailable Lorri, Nayan Attending Unavailable Oleghe, Efewongbe Primary Care Unavailable Oleghe, Efewongbe Referring Unavailable Oleghe, Efewongbe Attending Unavailable Oleghe, Efewongbe Primary Care Unavailable Oleghe, Efewongbe Referring Unavailable Oleghe, Efewongbe Attending Unavailable Oleghe, Efewongbe Primary Care Unavailable Jacob Amor Attending Unavailable Oleghe, Efewongbe Primary Care Unavailable Oleghe, Efewongbe Referring Unavailable Liseth Osborne Attending Unavailable Friend, Johny Referring Unavailable Friend, Johny Consulting Unavailable Oleghe, Efewongbe Primary Care Unavailable Yamile Glez Attending Unavailable Oleghe, Efewongbe Primary Care Unavailable Oleghe, Efewongbe Referring Unavailable Solo Méndez Attending Unavailable Oleghe, Efewongbe Referring Unavailable Tracy Lopez Attending Unavailable Oleghe, Efewongbe Primary Care Unavailable Oleghe, Efewongbe Primary Care Unavailable Oleghe, Efewongbe Referring Unavailable Tracy Lopez Attending Unavailable Oleghe, Efewongbe Primary Care Unavailable Oleghe, Efewongbe Referring Unavailable Nabeel Patel Attending Unavailable Oleghe, Efewongbe Primary Care Unavailable Oleghe, Efewongbe Referring Unavailable Solo Méndez Attending Unavailable Oleghe, Efewongbe Referring Unavailable Oleghe, Efewongbe Primary Care Unavailable Oleghe, Efewongbe Attending Unavailable Friend, Johny Referring Unavailable Friend, Johny Attending Unavailable Oleghe, Efewongbe Primary Care Unavailable Oleghe, Efewongbe Primary Care Unavailable Orlando CASTING REPAIRER, Cesia Referring Unavailable [place] CASTING REPAIRER, Cesia Attending Unavailable Oleghe, Efewongbe Referring Unavailable Oleghe, Efewongbe Primary Care Unavailable [place] CASTING REPAIRER, Cesia Attending Unavailable Oleghe, Efewongbe Referring Unavailable Oleghe, Efewongbe Primary Care Unavailable Solo Méndez Attending Unavailable Oleghe, Efewongbe Primary Care Unavailable Lorri, Nayan Referring Unavailable Lorri, Nayan Attending Unavailable Michael ARAUJO, Dr. Orozco Primary Care Physician Oleghe MD, Dr. Efewongbe Attending Physician Dr. Khanh Rodriguez MD Referring Provider Solo Méndez Attending Physician NAYAN BLACKMON Attending Unavailable OLEGHE, EFEWONGBE B Primary Care Unavailable LORRINAYAN HUSTON Attending Unavailable OLEGHE, EFEWONGBE B Primary Care Unavailable LORRINAYAN HUSTON Attending Unavailable OLEGHE, EFEWONGBE B Primary Care Unavailable LORRINAYAN HUSTON Attending Unavailable OLEGHE, EFEWONGBE B Primary Care Unavailable CHARLES, AMANDA Attending Unavailable MONSE MERLOS Referring Unavailable OLEGHE, EFEWONGBE B Primary Care Unavailable CHARLES, AMANDA Attending Unavailable MONSE MERLOS Referring Unavailable OLEGHE, EFEWONGBE B Primary Care Unavailable OLEGHE, EFEWONGBE B Primary Care Unavailable PROVIDER, UNKNOWN Admitting Unavailable PROVIDER, UNKNOWN Attending Unavailable OLEGHE, EFEWONGBE B Primary Care Unavailable OLEGHE, EFEWONGBE B Primary Care Unavailable RENEE DODD Admitting Unavailable ANDRIY MCDANIELS Attending Unavailable DUSTIN GRESHAM Consulting Unavaila ble OLEGHE, EFEWONGBE B Primary Care Unavailable CHARLES, AMANDA Attending Unavailable GT YIN Referring Unavailable OLEGHE, EFEWONGBE B Primary Care Unavailable CHARLES, AMANDA Attending Unavailable MONSE MERLOS Referring Unavailable OLEGHE, EFEWONGBE B Primary Care Unavailable CHARLES, AMANDA Attending Unavailable MONSE MERLOS Referring Unavailable OLEGHE, EFEWONGBE B Primary Care Unavailable AMANDA SOTO Attending Unavailable MONSE MERLOS Referring Unavailable OLEGHE, EFEWONGBE B Primary Care Unavailable CHARLES, AMANDA Attending Unavailable MONSE MERLOS Referring Unavailable OLEGHE, EFEWONGBE B Primary Care Unavailable AMANDA SOTO Attending Unavailable SOLO CALDERÓN Referring Unavailable OLEGHE, EFEWONGBE B Primary Care Unavailable AMANDA SOTO Attending Unavailable MONSE MERLOS Referring Unavailable OLEGHE, EFEWONGBE B Primary Care Unavailable CHARLES, AMANDA Attending Unavailable SOLO CALDERÓN Referring Unavailable OLEGHE, EFEWONGBE B Primary Care Unavailable CHARLES, AMANDA Attending Unavailable SOLO CALDERÓN Referring Unavailable OLEGHE, EFEWONGBE B Primary Care Unavailable AMANDA SOTO Attending Unavailable OLEGHE, EFEWONGBE B Primary Care Unavailable GT YIN Referring Unavailable CHARLES, AMANDA Attending Unavailable MONSE MERLOS Referring Unavailable OLEGHE, EFEWONGBE B Primary Care Unavailable CHARLES, AMANDA Attending Unavailable MONSE MERLOS Referring Unavailable OLEGHE, EFEWONGBE B Primary Care Unavailable CHARLES, AMANAD Attending Unavailable MONSE MERLOS Referring Unavailable OLEGHE, EFEWONGBE B Primary Care Unavailable CHARLES, AMANDA Attending Unavailable MONSE MERLOS Referring Unavailable OLEGHE, EFEWONGBE B Primary Care Unavailable CHARLES, AMANDA Attending Unavailable MONSE MERLOS Referring Unavailable OLEGHE, EFEWONGBE B Primary Care Unavailable CHARLES, AMANDA Attending Unavailable MONSE MERLOS Referring Unavailable OLEGHE, EFEWONGBE B Primary Care Unavailable CHARLES, AMANDA Attending Unavailable MONSE MERLOS Referring Unavailable OLEGHE, EFEWONGBE B Primary Care Unavailable CHARLES, AMANDA Attending Unavailable MONSE MERLOS Referring Unavailable OLEGHE, EFEWONGBE B Primary Care Unavailable CHARLES, AMANDA Attending Unavailable MONSE MERLOS Referring Unavailable OLEGHE, EFEWONGBE B Primary Care Unavailable CHARLES, AMANDA Attending Unavailable MONSE MERLOS Referring Unavailable OLEGHE, EFEWONGBE B Primary Care Unavailable CHARLES, AMANDA Attending Unavailable MONSE MERLOS Referring Unavailable OLEGHE, EFEWONGBE B Primary Care Unavailable CHARLES, AMANDA Attending Unavailable MONSE MERLOS Referring Unavailable OLEGHE, EFEWONGBE B Primary Care Unavailable Allergies Allergy Classification Reported Allergen(s) Allergy Type Date of Onset Reaction(s) Facility (20 sources) betamethasone; Translations: [BETAMETHASONE DIPROPIONATE] Drug Allergy 0 Intolerance [facility] Repository (20 sources) clarithromycin; Translations: [CLARITHROMYCIN (BULK)] Drug Allergy 0 Other: See Comments [facility] Repository (19 sources) Chlorhexidine Drug Allergy 2 Other, Rash [facility] Medications Current Medications Medication Drug Class(es) Dates Sig (Normalized) Sig (Original) acetaminophen 500 mg oral capsule (20 sources) Start: 06-08-2023 take 1 capsule by mouth every six hours as needed for pain acetaminophen (T YLENOL) 325 mg cap Take by mouth. Active calcium carbonate 1500 mg / cholecalciferol 200 unt oral tablet (15 sources) Vitamin D Start: 12-27-2023 calcium phosphate tribasic (TUMS GUMMY) 250 mg calcium chew (19 sources) calcium phosphat e tribasic (TUMS GUMMY) 250 mg calcium chew Take by mouth. Patient takes 1000mg twice daily Active Compress.Stocking,Knee,Reg,L r g (17 sources) Start: 05-09-2023 Compress.Stock ing,Knee,Reg ,Lrg Active 0 .MEDSUPPLY 2 May 08, 2023 11:00pm wear daily for venous insufficiency 20-30 mmHg Start: 05-09-2023 Compress.Stock ing,Knee,Reg,Lrg Active 0 .MEDSUPPLY 2 May 09, 2023 12:00am wear daily for venous insufficiency 20-30 mmHg Compress.Stocking,Knee,Reg,L rg misc (12 sources) Start: 05-09-2023 Compress.Stocking,Knee,Reg,L rg misc Active 0 .MEDSUPPLY 2 1 May 09, 2023 12:00am Venous insufficiency (chronic) (peripheral) wear daily for venous insufficiency 20-30 mmHg Start: 05-09-2023 Compress.Stock ing,Knee,Reg,Lrg misc Active 0 .MEDSUPPLY 2 May 09, 2023 12:00am wear daily for venous insufficiency 20-30 mmHg Diclofenac (20 sources) Nonsteroidal Anti-inflammatory Drug Start: 06-11-2018 VOLTAREN GEL 100g m Topical GEL apply 2g to knees daily - Active Start: 07-12-2017 apply 2 g topically every six hours as needed diclofenac sodium (VOLTAREN) 1 % topical gel Apply 2 g to affected area four times daily as needed. 100 Tube 2 07/12/2017 Active Comment on above: Apply 2 g to affecte d area four times daily as needed. gabapentin 300 mg oral capsule (20 sources) Anti-epileptic Agent Start: 05-15-2024 gabapentin (NEURONTIN) 300 mg capsule 300 mg two times a day. 05/15/2024 Active Start: 05-15-2024 End: 01-22-2025 take 1 capsule by mouth three times daily Gabapentin 300 mg capsule Discontinued 300 mg PO THREE TIMES A DAY 90 30 0 May 15, 2024 12:00am January 22, 2025 11:51am Magnesium (6 sources) Start: 05-28-2020 magnesium 250 mg tablet takes when constipated - Active methocarbamol 500 mg oral tablet (20 sources) Muscle Relaxant Start: 06-12-2024 take 1 tablet by mouth twice daily methocarbamol (ROBAXIN) 500 mg tablet Indications: Degenerative scoliosis , Lumbar radiculopathy , Chronic right-sided low back pain with right-sided sciatica Take 1 tablet by mouth two times a day. 30 tablet 06/12/2024 Active Start: 05-15-2024 End: 01-22-2025 take 1 tablet by mouth four times daily as needed for pain Methocarbamol 500 mg tablet Discontinued 500 mg PO 4 TIMES DAILY as needed for Muscle pain/spasm 40 May 15, 2024 2:52pm January 22, 2025 11:51am multivitamin (MULTIPLE VITAMINS) tablet (19 sources) take 1 tablet by mouth once daily multivitamin (MULTIPLE VITAMINS) tablet Take 1 tablet by mouth once daily. Active pantoprazole 40 mg delayed release oral tablet (20 sources) Proton Pump Inhibitor Start: End: take 1 tablet by mouth once daily Start: 12-30-2023 End: 04-25-2024 take 1 tablet by mouth twice daily at mealtime Pantoprazole 40 mg tablet,delayed release (DR/EC) Discontinued 40 mg PO TWICE DAILY WITH MEALS 60 30 December 30, 2023 1:29pm April 25, 2024 6:08pm GERD Start: 03-30-2022 End: 12-30-2023 take 1 tablet by mouth once daily Pantoprazole 40 mg tablet,delayed release (DR/EC) Discontinued 40 mg PO DAILY 90 April 22, 2022 12:46pm December 30, 2023 1:29pm GERD Start: 03-25-2022 End: 03-30-2022 take 1 tablet by mouth once daily Pantoprazole 20 mg tablet,delayed release (DR/EC) Discontinued 20 mg PO DAILY March 25, 2022 12:00am March 30, 2022 10:26am romosozumab-aqqg (EVENITY SUBCUTANEOUS) (19 sources) romosozumab-aqqg (EVENITY SUBCUTANEOUS) Inject subcutaneously. Given by Infusion center [facility] Active traMADol hydrochloride 50 mg oral tablet (20 sources) Opioid Agonist Start: 01-23-20 End: 09-17-20 25 take 1 tablet by mouth three times daily as needed for pain Start: 06-13-2023 End: 10-25-2023 take 1 tablet by mouth twice daily as needed for pain Tramadol 50 mg tablet Discontinued 50 mg PO TWICE A DAY as needed for pain 6 3 0 June 13, 2023 12:00am October 25, 2023 4:17pm Start: 05-24-2023 End: 06-13-2023 Tramadol 50 mg tablet Discon tinued 25 mg PO TWICE A DAY as needed for pain May 24, 2023 12:00am June 13, 2023 9:10am Start: 05-24-2023 End: 06-13-2023 take 25 mg by mouth twice daily Tramadol Discontinued 25 MG PO TWICE A DAY May 24, 2023 12:00am June 13, 2023 9:10am take 1 tablet by bob th every six hours as needed traMADol (ULTRAM) 50 mg tablet Take 1 tablet by mouth every 6 hours as needed. Active Completed/Discontinued Medications Medication Drug Class(es) Dates Sig (Normalized) Sig (Original) alendronic acid 70 mg oral tablet (20 sources) Bisphosphonate Start: 04-12-2022 End: 04-26-2024 take 1 tablet by mouth every week Alendronate (Fosamax) 70 mg tablet Discontinued 70 mg PO EVERY WEEK 30 1 May 09, 2023 3:49pm December 27, 2023 12:17pm JOINT SUPPORT anastrozole 1 mg oral tablet (20 sources) Aromatase Inhibitor Start: 07-10-2023 End: 04-22-2024 take 1 tablet by mouth once daily Anastrozole 1 mg tablet Discontinued 1 mg PO DAILY 90 1 October 19, 2023 3:28pm April 22, 2024 10:11am Malignant neoplasm of breast Malignant neoplasm of unspecified site of unspecified female breast ascorbic acid 500 mg oral tablet (14 sources) Vitamin C Start: 12-30-2023 End: 05-31-2024 take 1 tablet by mouth twice daily Ascorbic Acid (Vitamin C) 500 mg tablet Discontinued 500 mg PO TWICE A DAY 60 2 December 30, 2023 12:00am May 31, 2024 8:30am calcium ascorbate 500 mg oral tablet (20 sources) Start: 05-24-2023 End: 12-27-2023 take 1 tablet by mouth once daily Ascorbate Calcium (Vitamin C) 500 mg tablet Discontinued 500 mg PO DAILY May 24, 2023 12:00am December 27, 2023 12:15pm SUPPLEMENT calcium carbonate 1250 mg chewable tablet (20 sources) Start: 05-24-2023 End: 12-27-2023 Calcium Carbonate (Calcium 500) 500 mg calcium (1,250 mg) tablet,chewable Discontinued 1000 mg PO DAILY May 24, 2023 12:00am December 27, 2023 12:15pm SUPPLEMENT cephalexin 500 mg oral capsule (20 sources) Cephalosporin Antibacterial Start: 01-20-2023 End: 04-26-2023 take 1 capsule by mouth three times daily Cephalexin 500 mg capsule Discontinued 500 mg PO THREE TIMES A DAY 21 0 January 20, 2023 12:00am April 26, 2023 10:33am cholecalciferol 0.05 mg oral capsule (20 sources) Vitamin D Start: 05-24-2023 End: 12-27-2023 take 1 capsule by mouth once daily Cholecalciferol (Vitamin D3) 50 mcg (2,000 unit) capsule Discontinued 50 ug PO DAILY May 24, 2023 12:00am December 27, 2023 12:15pm SUPPLEMENT Cholecalciferol, Vitamin D3, (VITAMIN D) 25 mcg (1,000 unit) cap Take 1,000 Units by mouth once daily. Active ferrous sulfate 325 mg oral tablet (14 sources) Start: 12-30-2023 End: 01-26-2024 take 1 tablet by mouth once daily Ferrous Sulfate (Ferosul) 325 mg (65 mg iron) tablet Discontinued 325 mg PO DAILY 30 2 December 30, 2023 12:00am January 26, 2024 9:41am furosemide 40 mg oral tablet (20 sources) Loop Diuretic Start: 03-18-2024 End: 11-27-2024 take 1 tablet by mouth twice daily Furosemide 40 mg tablet Discontinued 40 mg PO TWICE A DAY 180 0 June 26, 2024 6:56pm November 27, 2024 7:15pm DIURETIC Start: 11-24-2023 End: 03-18-2024 take 1 tablet by mouth once daily Furosemide 40 mg tablet Discontinued 40 mg PO DAILY 90 0 January 25, 2024 4:31pm March 18, 2024 3:34pm DIURETIC Start: 05-24-2023 End: 11-03-2023 take 1 tablet by mouth once daily Furosemide 40 mg tablet Discontinued 40 mg PO DAILY May 24, 2023 1:44pm November 03, 2023 12:24pm DIURETIC Start: 04-26-2023 End: 05-24-2023 Furosemide 40 mg tablet Disc ontinued mg PO April 26, 2023 12:00am May 24, 2023 1:47pm Start: 04-26-2023 End: 05-24-2023 Furosemide Discontinued MG P O April 26, 2023 12:00am May 24, 2023 1:47pm Start: 01-04-2021 End: 03-25-2022 take 1 tablet by mouth twice daily Furosemide (Lasix) 40 mg tablet Discontinued 40 mg PO TWICE A DAY June 21, 2021 12:00am March 25, 2022 2:41pm Start: 05-12-2017 End: 05-23-2024 take 2 tablets by mouth twice daily furosemide (LASIX) 20 mg tablet Indications: Secondary esophageal varices with bleeding (HCC) , Alcoholic cirrhosis of liver with ascites (HCC) Take 2 tablets by mouth twice daily. 05/12/2017 05/23/2024 Discontinued Comment on above: Take 2 tablets by mo ut twice daily. ibandronic acid 150 mg oral tablet (20 sources) Bisphosphonate Start: 2 End: 2 take 1 tablet by mouth every month Ibandronate (Boniva) 150 mg tablet Discontinued 150 mg PO EVERY MONTH 14 April 11, 2022 12:00am April 12, 2022 8:41am ibuprofen 400 mg oral tablet (20 sources) Nonsteroidal Anti-inflammatory Drug Start: 3 End: 3 take 1 tablet by mouth every eight hours as needed for pain Ibuprofen 400 mg tablet Discontinued 400 mg PO Q8H as needed for pain May 24, 2023 12:00am July 20, 2023 10:14am End: 05-23-2024 take 2 tablets by mouth three times daily ibuprofen (MOTRIN) 200 mg tablet Take 400 mg by mouth three times daily. 05/23/2024 Discontinued Comment on above: Take 400 mg by mouth three times daily. lactulose 667 mg/ml oral solution (14 sources) Osmotic Laxative Start: 12-30-19 End: 01-26-20 Lactulose 10 gram/15 mL (15 mL) solution Discontinued 10 g PO THREE TIMES A DAY 1440 0 December 30, 2023 1:30pm January 26, 2024 9:41am Hold for more than 2 bowel movements per day. levoFLOXacin 500 mg oral tablet (20 sources) Quinolone Antimicrobial Start: 06-08-20 End: 07-20-20 take 1 tablet by mouth once daily Levofloxacin 500 mg tablet Discontinued 500 mg PO DAILY June 08, 2023 12:00am July 20, 2023 10:14am WOUND ON LEG meclizine hydrochloride 25 mg oral tablet (20 sources) Antiemetic Start: 06-09-20 End: 03-25-20 take 1 tablet by mouth three times daily as needed for dizziness Meclizine 25 mg tablet Discontinued 25 mg PO THREE TIMES A DAY as needed for dizziness 14 0 June 09, 2021 12:00am March 25, 2022 9:24am mecobalamin 1 mg oral lozenge (17 sources) Start: 05-24-20 End: 12-27-19 take 1000 ug by mouth once daily Mecobalamin (Vitamin B12) 1,000 mcg lozenge Discontinued 1000 ug PO DAILY May 24, 2023 12:00am December 27, 2023 12:15pm SUPPLEMENT allow to dissolve in mouth OR may chew lightly before swallowing Start: 05-24-2023 End: 12-27-2023 take 1000 ug by mouth once daily Mecobalamin (Vitamin B12) Discontinued 1000 MCG PO DAILY May 24, 2023 12:00am December 27, 2023 12:15pm allow to dissolve in mouth OR may chew lightly before swallowing Start: 05-24-2023 take 1000 ug by mout h once daily Mecobalamin (Vitamin B12) Active 1000 MCG PO DAILY May 23, 2023 11:00pm allow to dissolve in mouth OR may chew lightly before swallowing Start: 05-24-2023 take 1000 ug by mout h once daily Mecobalamin (Vitamin B12) Active 1000 MCG PO DAILY May 24, 2023 12:00am allow to dissolve in mouth OR may chew lightly before swallowing Mecobalamin (Vitamin B12) 1,000 mcg lozenge (10 sources) Start: 05-24-2023 End: 12-27-2023 take 1000 ug by mouth once daily Mecobalamin (Vitamin B12) 1,000 mcg lozenge Discontinued 1000 ug PO DAILY May 24, 2023 12:00am December 27, 2023 12:15pm SUPPLEMENT allow to dissolve in mouth OR may chew lightly before swallowing Start: 05-24-2023 End: 12-27-2023 take 1000 ug by mouth once daily Mecobalamin (Vitamin B12) 1,000 mcg lozenge Discontinued 1000 ug PO DAILY May 24, 2023 12:00am December 27, 2023 12:15pm allow to dissolve in mouth OR may chew lightly before swallowing Milk thistle extract (20 sources) End: 05-23-2024 MILK THISTLE ORAL Take by mt ut once daily. 05/23/2024 Discontinued MILK THISTLE ORA L Take by mouth once daily. Active MILK THISTLE ORA L Take by mouth once daily. 0 Active Comment on above: Take by mouth once d aily. nadolol 20 mg oral tablet (20 sources) beta-Adrenergic Juany Start: 05-23-20 End: 03-05-20 take 1 tablet by mouth once daily Nadolol 20 mg tablet Discontinued 20 mg PO DAILY 90 2 June 26, 2024 6:56pm March 05, 2025 2:21pm BP Comment on above: TAKE ONE TABLET BY OUT EVERY DAY oxyCODONE hydrochloride 5 mg oral tablet (12 sources) Opioid Agonist Start: 05-15-20 End: 05-31-20 take 1 tablet by mouth every six hours as needed for pain Oxycodone 5 mg tablet Discontinued 5 mg PO EVERY 6 HOURS as needed for pain 12 3 0 May 15, 2024 May 31, 2024 8:30am Strain of muscle, fascia and tendon of right hip, initial encounter Degeneration of intervertebral disc of lumbar region Strain of muscle, fascia and tendon of right hip, initial encounter Other intervertebral disc degeneration, lumbar region piperacillin 3000 mg / tazobactam 375 mg injection (1 source) Penicillin-class Antibacterial, beta Lactamase Inhibitor Start: 02-19-20 End: 02-19-20 3.375 g, INTRAVENOUS, at 50 mL/hr, Administer over 60 Minutes, ONCE, 1 dose, On Mon02/18/25 at 1530, Refrigerate, Antimicrobial indication: Empiric, Infectious source(s): Skin/soft tissue microencapsulated potassium chloride 20 meq extended release oral tablet (20 sources) Start: 01-21-20 End: 01-21-20 Potassium Chloride 20 mEq tablet extended release Discontinued 20 meq PO January 20, 2023 12:00am January 20, 2023 3:16pm Start: 01-20-2023 End: 06-08-2023 take 2 tablets by mouth twice daily Potassium Chloride 20 mEq tablet,ER particles/crystals Discontinued 40 meq PO TWICE A DAY 28 7 January 20, 2023 12:00am June 08, 2023 9:27am Start: 01-20-2023 End: 06-08-2023 take 40 mEq by mouth twice daily Potassium Chloride Discontinued 40 MEQ PO TWICE A DAY 28 7 January 20, 2023 12:00am June 08, 2023 9:27am Start: 06-09-2021 End: 04-12-2022 take 40 mEq by mouth once daily Potassium Chloride 40 mEq/15 mL liquid Discontinued 40 meq PO DAILY 45 3 0 June 09, 2021 12:00am April 12, 2022 11:51am Start: 04-13-2018 End: 01-13-2025 take 1 tablet by mouth twice daily Potassium Chloride 20 mEq tablet,ER particles/crystals Discontinued 20 meq PO TWICE A DAY 90 1 March 20, 2024 6:53pm January 13, 2025 1:40pm SUPPLEMENT Start: 04-13-2018 End: 11-03-2023 take 1 tablet by mouth once daily Potassium Chloride 20 mEq tablet,ER particles/crystals Discontinued 20 meq PO DAILY 90 1 July 25, 2023 11:52am November 03, 2023 2:17pm SUPPLEMENT Comment on above: Take 20 mEq by mouth once daily. Romosozumab-Aqqg (12 sources) Start: 04-26-2024 End: 04-21-2025 Romosozumab-Aqqg (Evenity) 210mg/2.34mL ( 105mg/1.17mLx2) syringe Discontinued 210 mg SC EVERY MONTH 28.08 360 0 April 26, 2024 12:00am April 20, 2025 12:00am April 21, 2025 12:07am Start: 04-26-2024 Romosozumab-Aq qg (Evenity) 210mg/2.34mL ( 105mg/1.17mLx2) syringe Active 210 mg SC EVERY MONTH 28.08 360 0 April 26, 2024 12:00am April 20, 2025 12:00am Start: 04-26-2024 Romosozumab-Aq qg (Evenity) 210mg/2.34mL ( 105mg/1.17mLx2) syringe Active 210 mg SC EVERY MONTH 28.08 360 April 26, 2024 12:00am April 20, 2025 12:00am sodium chloride 1000 mg oral tablet (20 sources) Start: 05-03-2023 End: 09-21-2023 take 1 tablet by mouth once daily Sodium Chloride 1,000 mg tablet,soluble Discontinued 1000 mg PO DAILY May 03, 2023 12:00am September 21, 2023 4:40pm SUPPLEMENT Start: 01-20-2023 End: 04-26-2023 Sodium Chloride 1,000 mg tab let,soluble Discontinued mg PO January 20, 2023 12:00am April 26, 2023 10:33am Start: 01-20-2023 End: 04-26-2023 Sodium Chloride Discontinued MG PO January 20, 2023 12:00am April 26, 2023 10:33am spironolactone 50 mg oral tablet (20 sources) Aldosterone Antagonist Start: 12-27-2023 End: 03-18-2024 take 1 tablet by mouth once daily Spironolactone 50 mg tablet Discontinued 50 mg PO DAILY 30 0 January 17, 2024 8:39am March 18, 2024 3:34pm Start: 11-03-2023 End: 11-15-2023 take 1 tablet by mouth once daily Spironolactone 50 mg tablet Discontinued 50 mg PO .qd November 03, 2023 11:57am November 15, 2023 3:22pm BP Start: 04-12-2022 End: 04-26-2023 take 1 tablet by mouth once daily Spironolactone 50 mg tablet Discontinued 50 mg PO DAILY 90 3 April 12, 2022 11:50am April 26, 2023 11:09am Start: 01-29-2021 take 1 tablet by bob twice daily spironolactone 25 mg tablet take 1 tablet by oral route twice daily - Active Start: 05-12-2017 End: 11-27-2024 take 1 tablet by mouth twice daily Spironolactone 50 mg tablet Discontinued 50 mg PO TWICE A DAY 180 0 June 26, 2024 6:56pm November 27, 2024 7:15pm Comment on above: Take 1 tablet by bob th twice daily. triamcinolone acetonide 0.001 mg/mg topical ointment (20 sources) Corticosteroid Start: 01-20-2023 End: 04-26-2023 Triamcinolone Acetonide 0.1 % ointment Discontinued 1 NMA TOPICAL DAILY as needed for Dermatitis 80 1 January 20, 2023 10:16am April 26, 2023 10:34am Start: 05-31-2022 End: 04-26-2023 Triamcinolone Acetonide 0.1 % ointment Discontinued 1 NMA TOPICAL DAILY as needed for Dermatitis 80 May 31, 2022 12:00am January 20, 2023 10:18am Problems Active Problems Problem Classification Problem Date Documented Da te Episodic/Chronic Abdominal pain (12 sources) Unspecified abdominal pain; Translations: [Abdominal pain, unspecified abdominal location] Episodic Administrative/social admission (20 sources) Patient encounter status; Translations: [Counseling, unspecified] 07-24-2023 Episodic Alcohol-related disorders (20 sources) Alcoholic cirrhosis; Translations: [Alcoholic cirrhosis] Onset: 7 Chronic Allergic reactions (20 sources) Inflammatory dermatosis; Translations: [Dermatitis, unspecified] Episodic Anxiety disorders (20 sources) Anxiety; Translations: [Anxiety disorder, unspecified] Onset: 1 04-28-2011 Chronic 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 (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) Vascular disorder; Translations: [Embolism and thrombosis of unspecified artery] Onset: 8 06-03-2008 Chronic Bacterial infection; unspecified site (3 sources) Infection due to Pseudomonas aeruginosa; Translations: [Other bacterial infections of unspecified site] Onset: 5 02-11-2025 Episodic Cancer of breast (20 sources) Malignant tumor of breast ; Translations: [Malignant neoplasm of unspecified site of unspecified female breast] Onset: 5 05-22-2023 Chronic Chronic ulcer of skin (20 sources) Ulcer of lower extremity; Translations: [Non-pressure chronic ulcer of unspecified part of right lower leg with unspecified severity] Onset: 4 01-20-2023 Chronic Comment on above: Venous duplex 3:R above-knee GSV, ASV mid-thigh and mid-calf incompetent.L GSV absent from distal thigh to proximal calf.Acute and chronic superficial thrombophlebitis in ASV at the L knee.Multiple superficial varicosities throughout the left calf. Coagulation and hemorrhagic disorders (17 sources) Thrombocytopenic disorder; Translations: [Thrombocytopenia, unspecified] 12-27-2023 Chronic Conditions associated with dizziness or vertigo (20 sources) Vertigo; Translations: [Dizziness and giddiness] Episodic Congestive heart failure; nonhypertensive (20 sources) Congestive heart failure; Translations: [Heart failure, unspecified] 11-03-2023 Chronic Delirium, dementia, and amnestic and other cognitive disorders (20 sources) Senile asthenia; Translations: [Age-related physical debility] Chronic Esophageal disorders (20 sources) Esophageal varices without bleeding; Translations: [Gastroesophageal reflux disease] Onset: 7 Chronic Essential hypertension (20 sources) Essential (primary) hypertension; Translations: [Essential hypertension] Onset: 5 Chronic Comment on above: CONTROLLED ON MED Fluid and electrolyte disorders (20 sources) Hypokalemia; Translations: [Hypokalemia] Onset: 1 Episodic Gastrointestinal hemorrhage (20 sources) Bleeding esophageal varices; Translations: [Secondary esophageal varices with bleeding] Onset: 7 05-12-2017 Chronic Gastrointestinal hemorrhage (20 sources) Acute upper gastrointestinal hemorrhage; Translations: [Gastrointestinal hemorrhage, unspecified] 12-27-2023 Episodic Malaise and fatigue (20 sources) Other malaise; Translations: [Complaint of debility and malaise] Onset: 4 01-05-2024 Episodic Nonmalignant breast conditions (20 sources) Breast lump; Translations: [Unspecified lump in the left breast, unspecified quadrant] 05-03-2023 Episodic Nutritional deficiencies (3 sources) Copper deficiency; Translations: [Dietary zinc deficiency] Onset: 5 Episodic Occlusion or stenosis of precerebral arteries (20 sources) Carotid artery stenosis; Translations: [Occlusion and stenosis of unspecified carotid artery] 06-17-2021 Chronic Open wounds of extremities (12 sources) Unspecified open wound, right lower leg, initial encounter; Translations: [Wound of right lower extremity, initial encounter] Episodic Osteoarthritis (20 sources) Unspecified osteoarthritis, unspecified site; Translations: [Bilateral primary osteoarthritis of knee] Chronic Osteoporosis (20 sources) Osteoporosis; Translations: [Age-related osteoporosis without current pathological fracture] Onset: Chronic Other acquired deformities (2 sources) Degenerative disorder of musculoskeletal system; Translations: [Other secondary scoliosis, site unspecified] 04-02-2024 Chronic Other acquired deformities (1 source) Other secondary scoliosis, site unspecified; Translations: [Degenerative scoliosis] Onset: Chronic Other acquired deformities (12 sources) Scoliosis deformity of spine; Translations: [Scoliosis, unspecified] 05-23-2024 Chronic Other circulatory disease (20 sources) Low blood pressure; Translations: [Hypotension, unspecified] 03-25-2022 Episodic Other circulatory disease (6 sources) Hypotension, unspecified; Translations: [Hypotension, unspecified] Episodic Other connective tissue disease (1 source) History of repair of hip joint; Translations: [Presence of unspecified artificial hip joint] 04-02-2024 Chronic Other connective tissue disease (20 sources) Pain in right hand Episodic Other connective tissue disease (1 source) Other specified soft tissue disorders; Translations: [Leg swelling] Onset: 5 Episodic Other diseases of veins and lymphatics (20 sources) Chronic acquired lymphedema; Translations: [Lymphedema, not elsewhere classified] Onset: 4 02-29-2024 Chronic Other diseases of veins and lymphatics (1 source) Lymphedema, not elsewhere classified; Translations: [Secondary lymphedema] Onset: 4 Chronic Other diseases of veins and lymphatics (20 sources) Venous insufficiency of leg; Translations: [Venous insufficiency (chronic) (peripheral)] 09-28-2023 Episodic Other diseases of veins and lymphatics (20 sources) Venous insufficiency (chronic) (peripheral); Translations: [Venous (peripheral) insufficiency, unspecified] Onset: 4 10-25-2023 Episodic Other fractures (20 sources) Compression fracture of lumbar spine; Translations: [Wedge compression fracture of unspecified lumbar vertebra, initial encounter for closed fracture] 01-22-2025 Episodic Other gastrointestinal disorders (18 sources) Diarrhea; Translations: [Diarrhea, unspecified] 11-15-2023 Episodic Other gastrointestinal disorders (6 sources) Diarrhea, unspecified; Translations: [Diarrhea] 11-15-2023 Episodic Other gastrointestinal disorders (15 sources) Ascites; Translations: [Other ascites] 12-27-2023 Episodic Other gastrointestinal disorders (2 sources) Other ascites; Translations: [Other ascites] 12-27-2023 Episodic Other infections; including parasitic (20 sources) H/O: infectious disease; Translations: [Personal history of other infectious and parasitic diseases] 01-20-2023 Episodic Other injuries and conditions due to external causes (20 sources) Open wound with complication; Translations: [Other injury of unspecified body region, initial encounter] 02-22-2023 Episodic Other injuries and conditions due to external causes (20 sources) Other injury of unspecified body region, initial encounter; Translations: [Open wound(s) (multiple) of unspecified site(s), complicated] Onset: 03-03-2023 Episodic Other injuries and conditions due to external causes (12 sources) Open wound; Translations: [Other injury of unspecified body region, initial encounter] 02-22-2023 Episodic Other liver diseases (20 sources) Cirrhosis of liver; Translations: [Unspecified cirrhosis of liver] 04-27-2023 Chronic Other liver diseases (7 sources) Unspecified cirrhosis of liver; Translations: [Cirrhosis of liver without mention of alcohol] Onset: 4 05-15-2023 Chronic Other liver diseases (20 sources) Elevated liver enzymes level; Translations: [Abnormal levels of other serum enzymes] 03-25-2022 Episodic Other liver diseases (20 sources) Jaundice; Translations: [Unspecified jaundice] 11-08-2023 Episodic Other liver diseases (9 sources) Unspecified jaundice; Translations: [Jaundice, unspecified, not of ] 11-15-2023 Episodic Other liver diseases (17 sources) Decompensated cirrhosis of liver; Translations: [Hepatic failure, unspecified without coma] 12-27-2023 Episodic Other liver diseases (3 sources) Hepatic failure, unspecified without coma; Translations: [Cirrhosis of liver without mention of alcohol] 12-27-2023 Episodic Other lower respiratory disease (12 sources) Shortness of breath; Translations: [SOB (shortness of breath)] Episodic Other lower respiratory disease (20 sources) Dyspnea; Translations: [Dyspnea, unspecified] 11-03-2023 Episodic Other lower respiratory disease (9 sources) Dyspnea, unspecified; Translations: [Other respiratory abnormalities] Onset: 11-03-2023 Episodic Other nervous system disorders (10 sources) Chronic pain; Translations: [Other chronic pain] 04-23-2025 Chronic Other non-epithelial cancer of skin (20 sources) History of malignant neoplasm of skin; Translations: [Personal history of other malignant neoplasm of skin] 01-20-2023 Episodic Comment on above: removed on scalp 09/0425 November 2022 Other non-traumatic joint disorders (12 sources) Pain in right knee Episodic Other non-traumatic joint disorders (20 sources) Hip pain; Translations: [Pain in left hip] 03-25-2022 Episodic Other non-traumatic joint disorders (6 sources) Pain in left hip; Translations: [Pain in joint, pelvic region and thigh] Episodic Other nutritional; endocrine; and metabolic disorders (20 sources) Hypomagnesemia; Translations: [Hypomagnesemia] Chronic Other nutritional; endocrine; and metabolic disorders (1 source) Other disorders of bilirubin metabolism; Translations: [Hyperbilirubinemia] Onset: Chronic Other nutritional; endocrine; and metabolic disorders (20 sources) Body mass index (BMI) 26.0-26.9, adult Episodic Other nutritional; endocrine; and metabolic disorders (12 sources) Body mass index (BMI) 25.0-25.9, adult Episodic Other nutritional; endocrine; and metabolic disorders (20 sources) Body mass index (BMI) 27.0-27.9, adult Episodic Other skin disorders (12 sources) Rash and other nonspecific skin eruption; Translations: [Rash] Episodic Other upper respiratory infections (12 sources) Acute upper respiratory infection, unspecified; Translations: [Viral upper respiratory tract infection] Episodic Residual codes; unclassified (20 sources) Body mass index (BMI) 24.0-24.9, adult Episodic Residual codes; unclassified (20 sources) Generalized edema; Translations: [Generalized edema] Episodic Residual codes; unclassified (20 sources) Postmenopausal state; Translations: [Asymptomatic menopausal state] 03-25-2022 Episodic Residual codes; unclassified (6 sources) Asymptomatic menopausal state; Translations: [Asymptomatic postmenopausal status (age-related) (natural)] Episodic Residual codes; unclassified (1 source) Pain; Translations: [Pain, unspecified] Episodic Residual codes; unclassified (20 sources) Bilateral lower limb edema; Translations: [Localized edema] 01-25-2023 Episodic Residual codes; unclassified (20 sources) Localized edema; Translations: [Edema] 02-01-2023 Episodic Residual codes; unclassified (12 sources) Edema of lower extremity; Translations: [Localized edema] 02-16-2024 Episodic Residual codes; unclassified (4 sources) H/O Spinal surgery; Translations: [Other specified postprocedural states] 05-08-2025 Episodic Comment on above: T12-L2 Residual codes; unclassified (1 source) Chills (without fever); Translations: [Chills] Onset: 5 Episodic Rheumatoid arthritis and related disease (12 sources) Rheumatoid arthritis, unspecified Chronic Skin and subcutaneous tissue infections (20 sources) Cellulitis of right lower limb; Translations: [Cellulitis of right lower extremity] Onset: 5 Episodic Spondylosis; intervertebral disc disorders; other back problems (12 sources) Degeneration of lumbar intervertebral disc; Translations: [Degeneration of intervertebral disc of lumbar region] 05-23-2024 Chronic Spondylosis; intervertebral disc disorders; other back problems (20 sources) Dorsalgia, unspecified; Translations: [Backache, unspecified] Onset: 5 05-15-2023 Episodic Sprains and strains (12 sources) Strain of muscle of lower limb; Translations: [Strain of muscle, fascia and tendon of right hip, initial encounter] 05-23-2024 Episodic Unclassified (20 sources) Office/outpatient visit,est, mod Onset: 8 Resolved: 1 Unclassified (20 sources) S32.000A - Wedge compression fracture of unspecified lumbar vertebra, initial encounter for closed fracture,M54.9 - Dorsalgia, unspecified Unclassified (16 sources) Compression fracture of lumbar vertebra Unclassified (2 sources) M48.062 - Spinal stenosis, lumbar region with neurogenic claudication,M54.50 - Low back pain, unspecified,G89.29 - Other chronic pain Unclassified (1 source) Wound Check Onset: 5 Varicose veins of lower extremity (20 sources) Varicose veins of bilateral lower extremities with other complications; Translations: [Varicose veins of both legs with edema] Onset: 4 Episodic Past or Other Problems Problem Classification Problem Date Documented Date Episodic/Chronic Abdominal hernia (20 sources) Umbilical hernia; Translations: [Umbilical hernia without obstruction or gangrene] Onset: 12-05-2016 12-05-2016 Episodic Other connective tissue disease (20 sources) Swelling of hand; Translations: [Other specified soft tissue disorders] Onset: 04-28-2011 04-28-2011 Episodic Other diseases of veins and lymphatics (20 sources) Peripheral venous insufficiency; Translations: [Venous insufficiency (chronic) (peripheral)] Onset: 03-04-2024 02-29-2024 Episodic Other fractures (1 source) Wedge compression fracture of unspecified lumbar vertebra, initial encounter for closed fracture; Translations: [Wedge compression fracture of unspecified lumbar vertebra, initial encounter for closed fracture] Onset: 01-23-2025 Episodic Other infections; including parasitic (1 source) Unspecified infectious disease; Translations: [Infection] Onset: 02-18-2025 Episodic Other nutritional; endocrine; and metabolic disorders (20 sources) Weight loss; Translations: [Abnormal weight loss] Onset: 04-28-2011 04-28-2011 Episodic Other nutritional; endocrine; and metabolic disorders (20 sources) Weight decreased; Translations: [Abnormal weight loss] Onset: 04-28-2011 04-28-2011 Episodic Other screening for suspected conditions (not mental disorders or infectious disease) (20 sources) Encounter for other screening for malignant neoplasm of breast; Translations: [Encounter for screening for malignant neoplasm of breast, unspecified screening modality] Onset: 05-02-2011 Episodic Residual codes; unclassified (1 source) Estrogen receptor positive status [ER+]; Translations: [Estrogen receptor positive status [ER+]] Onset: 01-23-2025 Episodic Superficial injury; contusion (20 sources) Abrasion, left lower leg, initial encounter; Translations: [Abrasion or friction burn of hip, thigh, leg, and ankle, infected] Onset: 02-17-2025 02-17-2025 Episodic Unclassified (6 sources) Office/outpatient visit,new, mod Onset: 04-10-2018 Results Test Name Value Interpretation Reference Range Facility CASE MANAGEMon 06-03-2025 CASE MANAGEM Normal [facility] CASE MANAGEM Normal [facility] CBC panel Auto (Bld)on 06-03 Erythrocyte distribution width (RBC) [Ratio] 15.0 % Normal 11.5-15.0 [facility] Comment on above: Order Comment: Speci cristo Type: BLOOD SPECIMENOrdering Facility: [facility] Address: [address] [place] [address] Performed By: #### 5 8410-2 ####[facility]ORATORYCLIA [id number] [address] Hematocrit (Bld) [Volume fraction] 25.6 % Low 36.0-46.0 [facility] Comment on above: Order Comment: Speci cristo Type: BLOOD SPECIMENOrdering Facility: [facility] Address: [address] [place] [address] Performed By: #### 5 8410-2 ####[facility]ORATORYCLIA [id number] [address] STATES OF [facility] Hemoglobin (Bld) [Mass/Vol] 9.3 g/dL Low 11.5-15.5 [facility] Comment on above: Order Comment: Speci men Type: BLOOD SPECIMENOrdering Facility: [facility] Address: [address] [place] [address] Performed By: #### 5 8410-2 ####[facility] LABORATORYCLIA [id number] [place] [address] [place] MCH (RBC) [Entitic mass] 37.3 pg High 26.0-34.0 [facility] Comment on above: Order Comment: Speci men Type: BLOOD SPECIMENOrdering Facility: [facility] Address: [address] [place] [address] Performed By: #### 5 8410-2 ####[facility]ORATORYCLIA [id number] [address] [place] MCHC (RBC) [Mass/Vol] 36.3 g/dL High 30.5-36.0 [facility] Comment on above: Order Comment: Speci men Type: BLOOD SPECIMENOrdering Facility: [facility] Address: [address] [place] [address] Performed By: #### 5 8410-2 ####[facility] LABORATORYCLIA [id number] [place] [address] [place] MCV (RBC) [Entitic vol] 102.8 fL High 80.0-100.0 [facility] Comment on above: Order Comment: Speci men Type: BLOOD SPECIMENOrdering Facility: [facility] Address: [address] [place] [address] Performed By: #### 5 8410-2 ####[facility] LABORATORYCLIA [id number] [address] [place] Nucleated RBC (Bld) [#/Vol] 10*3/uL Normal <0.01 [facility] [facility] Comment on above: Order Comment: Speci men Type: BLOOD SPECIMENOrdering Facility: [facility] Address: [address] [place] [address] Performed By: #### 5 8410-2 ####[facility]ORATORYCLIA [id number] [place] [address] [place] Platelet mean volume (Bld) [Entitic vol] 8.9 fL Low 9.0-12.7 [facility] Comment on above: Order Comment: Speci men Type: BLOOD SPECIMENOrdering Facility: [facility] Address: [address] [place] [address] Performed By: #### 5 8410-2 ####[facility] LABORATORYCLIA [id number] [place] [address] [place] Platelets (Bld) [#/Vol] 107 10*3/uL Low 150-400 [facility] Comment on above: Order Comment: Speci men Type: BLOOD SPECIMENOrdering Facility: [facility] Address: [address] [place] [address] Performed By: #### 5 8410-2 ####[facility] LABORATORYCLIA [id number] [place] [address] [place] RBC (Bld) [#/Vol] 2.49 10*6/uL Low 3.90-5.20 [facility] Comment on above: Order Comment: Speci men Type: BLOOD SPECIMENOrdering Facility: [facility] Address: [address] [place] [address] Performed By: #### 5 8410-2 ####[facility] LABORATORYCLIA [id number] [place] [address] [place] WBC (Bld) [#/Vol] 3.22 10*3/uL Low 3.70-11.00 [facility] Comment on above: Order Comment: Speci men Type: BLOOD SPECIMENOrdering Facility: [facility] Address: [address] [place] [address] Performed By: #### 5 8410-2 ####[facility] LABORATORYCLIA [id number] [address] [place] CNDSon 06-03-2025 CNDS Normal [facility] CONSULTon 06-03-2025 CONSULT Normal [facility] CONSULT PROGon 06-03-2025 CONSULT PROG Normal [facility] CONSULT [facility] CORTISOL, 30 MIN POST COSYNT ROPIN INJECTIONon 06-03-2025 Cortisol 30 Min post Unsp challenge [Mass/Vol] 16.8 ug/dL [facility] Comment on above: Order Comment: Speci men Type: BLOOD SPECIMENOrdering Facility: [facility] Address: [address] [place] [address] Performed By: #### C OR30 ####[facility] LABCLIA [id number] [address] [place] CORTISOL, 60 MIN POST COSYNT ROPIN INJECTION 3 POINTon 06-03-2025 Cortisol 1 Hr post Unsp challenge [Mass/Vol] 18.4 ug/dL [facility] Comment on above: Order Comment: Speci men Type: BLOOD SPECIMENOrdering Facility: [facility] Address: [address] [place] [address] Performed By: #### C ORS60M ####[facility] LABCLIA [id number] [place] [id number] [place] INTERPRETATION (ACTHST) Normal [facility] Comment on above: Order Comment: Speci men Type: BLOOD SPECIMENOrdering Facility: [facility] Address: [address] [place] [address] Result Comment: Afte r cortrosyn stimulation, a peak cortisol response greater than 12.6 ug/dL may indicate appropriate cortisol secretion. This result should be interpreted within the clinical context and other test results.Sun et al. Clinical Implications for Biochemical Diagnostic Thresholds of Adrenal Sufficiency Using a Highly Specific Cortisol Immunoassay. 2017 Clin. Biochem. 50:475-480. Performed By: #### C ORS60M ####[facility] LABCLIA [id number] [address] [place] CORTISOL, BASALon 06-03-2025 Cortisol baseline [Mass/Vol] 5.6 ug/dL Normal 4.8-19.5 [facility] Comment on above: Order Comment: Speci men Type: BLOOD SPECIMENOrdering Facility: [facility] Address: [address] [place] [address] Result Comment: Prov ided reference range is from 6-10 AM sample collection time.Cortisol Reference Range: 6-10 AM = 4.8-19.5 ug/dL, 4-8 PM = 2.5-11.9 ug/dL Performed By: #### C ORTBAS ####[facility] LABCLIA [id number] [address] [place] Comprehensive metabolic 2000 panelon 06-03-2025 Albumin [Mass/Vol] 3.2 g/dL Low 3.9-4.9 [facility] Comment on above: Order Comment: Speci men Type: BLOOD SPECIMENOrdering Facility: [facility] Address: [address] [place] [address] Performed By: #### 2 4323-8 ####[facility] LABORATORYCLIA [id number] [place] [address] [place] ALP [Catalytic activity/Vol] 185 U/L High 34-123 [facility] Comment on above: Order Comment: Speci men Type: BLOOD SPECIMENOrdering Facility: [facility] Address: [address] [place] [id number] Performed By: #### 2 4323-8 ####[facility] LABORATORYCLIA [id number] [place], [place] [address] [place] [address] ALT [Catalytic activity/Vol] 13 U/L Normal 7-38 [facility] Comment on above: Order Comment: Speci men Type: BLOOD SPECIMENOrdering Facility: [facility] Address: [address] [place] [address] Performed By: #### 2 4323-8 ####[facility] LABORATORYCLIA [id number] [place] [address] [place] Anion gap [Moles/Vol] 10 mmol/L Normal 8-15 [facility] Comment on above: Order Comment: Speci men Type: BLOOD SPECIMENOrdering Facility: [facility] Address: [address] [place] [address] Performed By: #### 2 4323-8 ####[facility] LABORATORYCLIA [id number] [place] [address] [place] AST [Catalytic activity/Vol] 45 U/L High 13-35 [facility] Comment on above: Order Comment: Speci men Type: BLOOD SPECIMENOrdering Facility: [facility] Address: [address] [place] [address] Performed By: #### 2 4323-8 ####[facility] LABORATORYCLIA [id number] [place] [address] [place] Bilirubin [Mass/Vol] 3.1 mg/dL High 0.2-1.3 [facility] Comment on above: Order Comment: Speci men Type: BLOOD SPECIMENOrdering Facility: [facility] Address: [address] [place] [place] [id number] Performed By: #### 2 4323-8 ####[facility] LABORATORYCLIA [id number] [address] [place] Calcium [Mass/Vol] 8.7 mg/dL Normal 8.5-10.2 [facility] Comment on above: Order Comment: Speci men Type: BLOOD SPECIMENOrdering Facility: [facility] Address: [address] [facility] [place] [address] Performed By: #### 2 4323-8 ####[facility] LABORATORYCLIA [id number] [address] [place] Chloride [Moles/Vol] 95 mmol/L Low 98-107 [facility] Comment on above: Order Comment: Speci men Type: BLOOD SPECIMENOrdering Facility: [facility] Address: [address] [place] [address] Performed By: #### 2 4323-8 ####[facility] LABORATORYCLIA [id number] [place] [address] [place] CO2 [Moles/Vol] 27 mmol/L Normal 22-30 [facility] Comment on above: Order Comment: Speci men Type: BLOOD SPECIMENOrdering Facility: [facility] Address: [address] [place] [address] Performed By: #### 2 4323-8 ####[facility] LABORATORYCLIA [id number] [address] STATES OF [facility] Creatinine [Mass/Vol] 0.39 mg/dL Low 0.58-0.96 [facility] Comment on above: Order Comment: Speci men Type: BLOOD SPECIMENOrdering Facility: [facility] Address: [address] [place] [address] Performed By: #### 2 4323-8 ####[facility] LABORATORYCLIA [id number] [address] [place] eGFRcr SerPlBld CKD-EPI 2020 105 mL/min/1.73m??? Normal >=60 [facility] Comment on above: Order Comment: Speci men Type: BLOOD SPECIMENOrdering Facility: [facility] Address: [address] [place] [address] Result Comment: Kaylyn mated Glomerular Filtration Rate (eGFR) is calculated using the 2020 CKD-EPI creatinine equation. This equation utilizes serum creatinine, sex, and age as parameters. The creatinine assay has traceable calibration to isotope dilution-mass spectrometry. Refer to KDIGO guidelines for clinical interpretation. In patients with unstable renal function, e.g. those with acute kidney injury, the eGFR may not accurately reflect actual GFR. Performed By: #### 2 4323-8 ####[facility] LABORATORYCLIA [id number] [place] [address] [place] Glucose [Mass/Vol] 85 mg/dL Normal 74-99 [facility] Comment on above: Order Comment: Steve lemons Type: BLOOD SPECIMENOrdering Facility: [facility] Address: [address] [place] [address] Result Comment: The [place] Diabetes [employer] (ADA) provides guidance for cutoff values for fasting glucose and random glucose. The ADA defines fasting as no caloric intake for at least 8 hours. Fasting plasma glucose results between 100 to 125 mg/dL indicate increased risk for diabetes (prediabetes).Fasting plasma glucose results greater than or equal to 126 mg/dL meet the criteria for diagnosis of diabetes. In the absence of unequivocal hyperglycemia, results should be confirmed by repeat testing. In a patient with classic symptoms of hyperglycemia or hyperglycemic crisis, random plasma glucose results greater than or equal to 200 mg/dL meet the criteria for diagnosis of diabetes.Reference: Standards of Medical Care in Diabetes 2016, [place] [employer]. Diabetes Care. 2016.39(Suppl 1). Performed By: #### 2 4323-8 ####[facility] LABORATORYCLIA [id number] [place] [address] [place] Potassium [Moles/Vol] 3.1 mmol/L Low 3.7-5.1 [facility] Comment on above: Order Comment: Steve lemons Type: BLOOD SPECIMENOrdering Facility: [facility] Address: [address] [place] [address] Performed By: #### 2 4323-8 ####[facility] LABORATORYCLIA [id number] [place] [address] [place] Protein [Mass/Vol] 5.3 g/dL Low 6.3-8.0 [facility] Comment on above: Order Comment: Steve lemons Type: BLOOD SPECIMENOrdering Facility: [facility] Address: [address] [place] [address] Performed By: #### 2 4323-8 ####[facility] LABORATORYCLIA [id number] [place] [address] [place] Sodium [Moles/Vol] 132 mmol/L Low 136-144 [facility] Comment on above: Order Comment: Speci men Type: BLOOD SPECIMENOrdering Facility: [facility] Address: [facility] [place] [address] Performed By: #### 2 4323-8 ####[facility] LABORATORYCLIA [id number] [place] [address] [place] Urea nitrogen [Mass/Vol] 7 mg/dL Normal 7-21 [facility] Comment on above: Order Comment: Speci men Type: BLOOD SPECIMENOrdering Facility: [facility] Address: [address] [place], [place] [address] [address] Performed By: #### 2 4323-8 ####[facility] LABORATORYCLIA [id number] [address] [place] ALLIED HEALTHon 06-02-2025 ALLIED HEALTH Normal [facility] CASE MANAGEMon 06-02-2025 CASE MANAGEM Normal [facility] CBC panel Auto (Bld)on 06-02 Erythrocyte distribution width (RBC) [Ratio] 14.9 % Normal 11.5-15.0 [facility] Comment on above: Order Comment: Speci men Type: BLOOD SPECIMENOrdering Facility: [facility] Address: [address] [place] [address] Performed By: #### 5 8410-2 ####[facility] LABORATORYCLIA [id number] [address] [place] Hematocrit (Bld) [Volume fraction] 26.9 % Low 36.0-46.0 [facility] Comment on above: Order Comment: Speci men Type: BLOOD SPECIMENOrdering Facility: [facility] Address: [address] [place], [place] [address] [address] Performed By: #### 5 8410-2 ####[facility] LABORATORYCLIA [id number] [place] [address] [place] Hemoglobin (Bld) [Mass/Vol] 9.6 g/dL Low 11.5-15.5 [facility] Comment on above: Order Comment: Speci men Type: BLOOD SPECIMENOrdering Facility: [facility] Address: [address] [place] [address] Performed By: #### 5 8410-2 ####[facility] LABORATORYCLIA [id number] [address] MCH (RBC) [Entitic mass] 37.6 pg High 26.0-34.0 [facility] Comment on above: Order Comment: Speci men Type: BLOOD SPECIMENOrdering Facility: [facility] Address: [address] [place] [address] Performed By: #### 5 8410-2 ####[facility] LABORATORYCLIA [id number] [address] MCHC (RBC) [Mass/Vol] 35.7 g/dL Normal 30.5-36.0 [facility] Comment on above: Order Comment: Speci men Type: BLOOD SPECIMENOrdering Facility: [facility] Address: [address] [place] [address] Performed By: #### 5 8410-2 ####[facility] LABORATORYCLIA [id number] [address] MCV (RBC) [Entitic vol] 105.5 fL High 80.0-100.0 [facility] Comment on above: Order Comment: Speci men Type: BLOOD SPECIMENOrdering Facility: [facility] Address: [address] [place] [address] Performed By: #### 5 8410-2 ####[facility] LABORATORYCLIA [id number] [address] Nucleated RBC (Bld) [#/Vol] 10*3/uL Normal <0.01 [facility] Comment on above: Order Comment: Speci men Type: BLOOD SPECIMENOrdering Facility: [facility] Address: [address] [place] [address] Performed By: #### 5 8410-2 ####[facility] LABORATORYCLIA [id number] [address] Platelet mean volume (Bld) [Entitic vol] 9.1 fL Normal 9.0-12.7 [facility] Comment on above: Order Comment: Speci men Type: BLOOD SPECIMENOrdering Facility: [facility] Address: [address] [place], [place] [address] Performed By: #### 5 8410-2 ####[facility] LABORATORYCLIA [id number] [address] Platelets (Bld) [#/Vol] 98 10*3/uL Low 150-400 [facility] Comment on above: Order Comment: Speci men Type: BLOOD SPECIMENOrdering Facility: [facility] Address: [address] [place] [address] Result Comment: No c lot detected. Performed By: #### 5 8410-2 ####[facility] LABORATORYCLIA [id number] [place] [address] [place] RBC (Bld) [#/Vol] 2.55 10*6/uL Low 3.90-5.20 [facility] Comment on above: Order Comment: Speci men Type: BLOOD SPECIMENOrdering Facility: [facility] Address: [address] [place] [address] Performed By: #### 5 8410-2 ####[facility] LABORATORYCLIA [id number] [address] [place] WBC (Bld) [#/Vol] 3.25 10*3/uL Low 3.70-11.00 [facility] Comment on above: Order Comment: Speci men Type: BLOOD SPECIMENOrdering Facility: [facility] Address: [address] [place] [address] Performed By: #### 5 8410-2 ####[facility] LABORATORYCLIA [id number] [address] [place] CONSULT PROGon 06-02-2025 CONSULT PROG Normal [facility] CONSULT PROG Normal [facility] CONSULT PROG Normal [facility] CONSULT PROG Normal [facility] CONSULT PROG Normal [facility] Comprehensive metabolic 2000 panelon 06-02-2025 Albumin [Mass/Vol] 3.2 g/dL Low 3.9-4.9 [facility] Comment on above: Order Comment: Speci men Type: BLOOD SPECIMENOrdering Facility: [facility] Address: [address] [place] [address] Performed By: #### 2 4323-8, 06945-6, 2776-09 ####[facility] LABORATORYCLIA [id number] [place] [address] [place] ALP [Catalytic activity/Vol] 182 U/L High 34-123 [facility] Comment on above: Order Comment: Speci men Type: BLOOD SPECIMENOrdering Facility: [facility] Address: [address] [place] [address] Performed By: #### 2 4323-8, , 2776-09 ####[facility] LABORATORYCLIA [id number] [place] [address] [place] ALT [Catalytic activity/Vol] 14 U/L Normal 7-38 [facility] Comment on above: Order Comment: Speci men Type: BLOOD SPECIMENOrdering Facility: [facility] Address: [address] [place] [address] Performed By: #### 2 4323-8, , 2776-09 ####[facility] LABORATORYCLIA [id number] [place] [address] [place] Anion gap [Moles/Vol] 8 mmol/L Normal 8-15 [facility] Comment on above: Order Comment: Speci men Type: BLOOD SPECIMENOrdering Facility: [facility] Address: [address] [place] [address] Performed By: #### 2 4323-8, , 2776-09 ####[facility] LABORATORYCLIA [id number] [place] [address] [place] AST [Catalytic activity/Vol] 51 U/L High 13-35 [facility] Comment on above: Order Comment: Speci men Type: BLOOD SPECIMENOrdering Facility: [facility] Address: [address] [place] [address] Performed By: #### 2 4323-8, , 2776-09 ####[facility] LABORATORYCLIA [id number] [place] [address] [place] Bilirubin [Mass/Vol] 3.7 mg/dL High 0.2-1.3 [facility] Comment on above: Order Comment: Speci men Type: BLOOD SPECIMENOrdering Facility: [facility] Address: [address] [place] [address] Performed By: #### 2 4323-8, , 2776-09 ####[facility] LABORATORYCLIA [id number] [place] [address] [place] Calcium [Mass/Vol] 8.3 mg/dL Low 8.5-10.2 [facility] Comment on above: Order Comment: Speci men Type: BLOOD SPECIMENOrdering Facility: [facility] Address: [address] [place] [address] Performed By: #### 2 4323-8, , 2776-09 ####[facility] LABORATORYCLIA [id number] [place] [address] [place] Chloride [Moles/Vol] 98 mmol/L Normal 98-107 [facility] Comment on above: Order Comment: Speci men Type: BLOOD SPECIMENOrdering Facility: [facility] Address: [address] [place] [address] Performed By: #### 2 4323-8, , 2776-09 ####[facility] LABORATORYCLIA [id number] [place] [address] [place] CO2 [Moles/Vol] 27 mmol/L Normal 22-30 [facility] Comment on above: Order Comment: Speci men Type: BLOOD SPECIMENOrdering Facility: [facility] Address: [address] [place] [address] Performed By: #### 2 4323-8, , 2776-09 ####[facility] LABORATORYCLIA [id number] [place] [address] [place] Creatinine [Mass/Vol] 0.45 mg/dL Low 0.58-0.96 [facility] Comment on above: Order Comment: Speci men Type: BLOOD SPECIMENOrdering Facility: [facility] Address: [address] [place] [address] Performed By: #### 2 4323-8, , 2776-09 ####[facility] LABORATORYCLIA [id number] [place] [address] [place] eGFRcr SerPlBld CKD-EPI 2020 102 mL/min/1.73m??? Normal >=60 [facility] Comment on above: Order Comment: Steve lemons Type: BLOOD SPECIMENOrdering Facility: [facility] Address: [address] [place] [address] Result Comment: Kaylyn mated Glomerular Filtration Rate (eGFR) is calculated using the 2020 CKD-EPI creatinine equation. This equation utilizes serum creatinine, sex, and age as parameters. The creatinine assay has traceable calibration to isotope dilution-mass spectrometry. Refer to KDIGO guidelines for clinical interpretation. In patients with unstable renal function, e.g. those with acute kidney injury, the eGFR may not accurately reflect actual GFR. Performed By: #### 2 4323-8, 57204-0, 2777-1 ####[facility] LABORATORYCLIA [id number] [place] [id number] [place] Glucose [Mass/Vol] 91 mg/dL Normal 74-99 [facility] Comment on above: Order Comment: Steve lemons Type: BLOOD SPECIMENOrdering Facility: [facility] Address: [address] [place] [address] Result Comment: The [place] [employer] (ADA) provides guidance for cutoff values for fasting glucose and random glucose. The ADA defines fasting as no caloric intake for at least 8 hours. Fasting plasma glucose results between 100 to 125 mg/dL indicate increased risk for diabetes (prediabetes).Fasting plasma glucose results greater than or equal to 126 mg/dL meet the criteria for diagnosis of diabetes. In the absence of unequivocal hyperglycemia, results should be confirmed by repeat testing. In a patient with classic symptoms of hyperglycemia or hyperglycemic crisis, random plasma glucose results greater than or equal to 200 mg/dL meet the criteria for diagnosis of diabetes.Reference: Standards of Medical Care in Diabetes 2016, [place] [employer]. Diabetes Care. 2016.39(Suppl 1). Performed By: #### 2 4323-8, 02298-0, 2777-1 ####[facility] LABORATORYCLIA [id number] [place] [address] [place] Potassium [Moles/Vol] 3.5 mmol/L Low 3.7-5.1 [facility] Comment on above: Order Comment: Speci men Type: BLOOD SPECIMENOrdering Facility: [facility] Address: [address] [place] [address] Performed By: #### 2 4323-8, , 2776-09 ####[facility] LABORATORYCLIA [id number] [address] [place] Protein [Mass/Vol] 5.2 g/dL Low 6.3-8.0 [facility] Comment on above: Order Comment: Speci men Type: BLOOD SPECIMENOrdering Facility: [facility] Address: [address] [place] [address] Performed By: #### 2 4323-8, , 2776-09 ####[facility] LABORATORYCLIA [id number] [place] [address] [place] Sodium [Moles/Vol] 133 mmol/L Low 136-144 [facility] Comment on above: Order Comment: Speci men Type: BLOOD SPECIMENOrdering Facility: [facility] Address: [address] [place] [address] Performed By: #### 2 4323-8, , 2776-09 ####[facility] LABORATORYCLIA [id number] [address] [place] Urea nitrogen [Mass/Vol] 5 mg/dL Low 7-21 [facility] Comment on above: Order Comment: Speci men Type: BLOOD SPECIMENOrdering Facility: [facility] Address: [address] [place] [address] Performed By: #### 2 4323-8, , 2776-09 ####[facility] LABORATORYCLIA [id number] [place] [address] [place] ECG COMPLETEon 06-02-2025 ECG COMPLETE Normal [facility] MRI 3D POST PROCESSINGon MRI 3D POST PROCESSING Normal [facility] MRI PANC/ALBERT WO IVCONon - MRI PANC/ALBERT WO IVCON Normal [facility] Magnesium SerPl-mCncon 06-02 Magnesium [Mass/Vol] 1.4 mg/dL Low 1.7-2.3 [facility] Comment on above: Order Comment: Speci men Type: BLOOD SPECIMENOrdering Facility: [facility] Address: [address] [place] [address] Performed By: #### 2 4323-8, 44037-2, 2777-1 ####[facility] LABORATORYCLIA [id number] [place] [address] [place] NUTRITIONon 06-02-2025 NUTRITION Normal [facility] Phosphate SerPl-mCncon 06-02 Phosphate [Mass/Vol] 1.3 mg/dL Low 2.7-4.8 [facility] Comment on above: Order Comment: Speci men Type: BLOOD SPECIMENOrdering Facility: [facility] Address: [address] [place] [address] Performed By: #### 2 4323-8, 67206-4, 2777-1 ####M[facility] LABORATORYCLIA [id number] [place] [address] [place] CBC panel Auto (Bld)on 06-01 Erythrocyte distribution width (RBC) [Ratio] 15.1 % High 11.5-15.0 [facility] Comment on above: Order Comment: Speci men Type: BLOOD SPECIMENOrdering Facility: [facility] Address: [address] [place] [address] Performed By: #### 5 8410-2 ####[facility] LABORATORYCLIA [id number] [address] [place] Hematocrit (Bld) [Volume fraction] 25.8 % Low 36.0-46.0 [facility] Comment on above: Order Comment: Speci men Type: BLOOD SPECIMENOrdering Facility: [facility] Address: [address] [place] [address] Performed By: #### 5 8410-2 ####[facility] LABORATORYCLIA [id number] [address] [place] Hemoglobin (Bld) [Mass/Vol] 9.4 g/dL Low 11.5-15.5 [facility] Comment on above: Order Comment: Speci men Type: BLOOD SPECIMENOrdering Facility: [facility] Address: [address] [place] [address] Performed By: #### 5 8410-2 ####[facility] LABORATORYCLIA [id number] [address] MCH (RBC) [Entitic mass] 38.2 pg High 26.0-34.0 [facility] Comment on above: Order Comment: Speci men Type: BLOOD SPECIMENOrdering Facility: [facility] Address: [address] [place] [address] Performed By: #### 5 8410-2 ####[facility] LABORATORYCLIA [id number] [address] MCHC (RBC) [Mass/Vol] 36.4 g/dL High 30.5-36.0 [facility] Comment on above: Order Comment: Speci men Type: BLOOD SPECIMENOrdering Facility: [facility] Address: [address] [place] [address] Performed By: #### 5 8410-2 ####[facility] LABORATORYCLIA [id number] [address] MCV (RBC) [Entitic vol] 104.9 fL High 80.0-100.0 [facility] Comment on above: Order Comment: Speci men Type: BLOOD SPECIMENOrdering Facility: [facility] Address: [address] [place] [address] Performed By: #### 5 8410-2 ####MCLAIN LABORATORYCLIA [id number] [address] Nucleated RBC (Bld) [#/Vol] 10*3/uL Normal <0.01 [facility] Comment on above: Order Comment: Speci men Type: BLOOD SPECIMENOrdering Facility: [facility] Address: [address] [place] [address] Performed By: #### 5 8410-2 ####MCLAIN LABORATORYCLIA [id number] [address] Platelet mean volume (Bld) [Entitic vol] 8.8 fL Low 9.0-12.7 [facility] Comment on above: Order Comment: Speci men Type: BLOOD SPECIMENOrdering Facility: [facility] Address: [address] [place] [address] Performed By: #### 5 8410-2 ####MCLAIN LABORATORYCLIA [id number] [address] [place] Platelets (Bld) [#/Vol] 105 10*3/uL Low 150-400 [facility] Comment on above: Order Comment: Speci men Type: BLOOD SPECIMENOrdering Facility: [facility] Address: [address] [place] [address] Performed By: #### 5 8410-2 ####MCLAIN LABORATORYCLIA [id number] [place] [address] [place] RBC (Bld) [#/Vol] 2.46 10*6/uL Low 3.90-5.20 [facility] Comment on above: Order Comment: Speci men Type: BLOOD SPECIMENOrdering Facility: [facility] Address: [address] [place] [address] Performed By: #### 5 8410-2 ####MCLAIN LABORATORYCLIA [id number] [place] [address] [place] WBC (Bld) [#/Vol] 3.89 10*3/uL Normal 3.70-11.00 [facility] Comment on above: Order Comment: Speci men Type: BLOOD SPECIMENOrdering Facility: [facility] Address: [address] [place] [address] Performed By: #### 5 8410-2 ####MCLAIN LABORATORYCLIA [id number] [address] [place] CONSULT PROGon 06-01-2025 CONSULT PROG Normal [facility] CONSULT PROG Normal [facility] Comprehensive metabolic 2000 panelon 06-01-2025 Albumin [Mass/Vol] 3.7 g/dL Low 3.9-4.9 [facility] Comment on above: Order Comment: Speci men Type: BLOOD SPECIMENOrdering Facility: [facility] Address: [address] [place] [address] Performed By: #### 2 4323-8 ####MCLAIN LABORATORYCLIA [id number] [place] [address] [place] ALP [Catalytic activity/Vol] 183 U/L High 34-123 [facility] Comment on above: Order Comment: Speci men Type: BLOOD SPECIMENOrdering Facility: [facility] Address: [address] [place] [address] Performed By: #### 2 4323-8 ####MCLAIN LABORATORYCLIA [id number] [place] [address] [place] ALT [Catalytic activity/Vol] 13 U/L Normal 7-38 [facility] Comment on above: Order Comment: Speci men Type: BLOOD SPECIMENOrdering Facility: [facility] Address: [address] [place] [address] Performed By: #### 2 4323-8 ####MCLAIN LABORATORYCLIA [id number] [place] [address] [place] Anion gap [Moles/Vol] 11 mmol/L Normal 8-15 [facility] Comment on above: Order Comment: Speci men Type: BLOOD SPECIMENOrdering Facility: [facility] Address: [address] [place] [address] Performed By: #### 2 4323-8 ####MCLAIN LABORATORYCLIA [id number] [place] [address] [place] AST [Catalytic activity/Vol] 46 U/L High 13-35 [facility] Comment on above: Order Comment: Speci men Type: BLOOD SPECIMENOrdering Facility: [facility] Address: [address] [place] [address] Performed By: #### 2 4323-8 ####MCLAIN LABORATORYCLIA [id number] [place] [address] [place] Bilirubin [Mass/Vol] 4.3 mg/dL High 0.2-1.3 [facility] Comment on above: Order Comment: Speci men Type: BLOOD SPECIMENOrdering Facility: [facility] Address: [address] [place] [address] Performed By: #### 2 4323-8 ####MCLAIN LABORATORYCLIA [id number] [place] [address] [place] Calcium [Mass/Vol] 8.2 mg/dL Low 8.5-10.2 [facility] Comment on above: Order Comment: Speci men Type: BLOOD SPECIMENOrdering Facility: [facility] Address: [address] [place] [address] Performed By: #### 2 4323-8 ####MCLAIN LABORATORYCLIA [id number] [place] [address] [place] Chloride [Moles/Vol] 94 mmol/L Low 98-107 [facility] Comment on above: Order Comment: Speci men Type: BLOOD SPECIMENOrdering Facility: [facility] Address: [address] [place] [address] Performed By: #### 2 4323-8 ####MCLAIN LABORATORYCLIA [id number] [place] [address] [place] CO2 [Moles/Vol] 25 mmol/L Normal 22-30 [facility] Comment on above: Order Comment: Speci men Type: BLOOD SPECIMENOrdering Facility: [facility] Address: [address] [place] [address] Performed By: #### 2 4323-8 ####MCLAIN LABORATORYCLIA [id number] [place] [address] [place] Creatinine [Mass/Vol] 0.49 mg/dL Low 0.58-0.96 [facility] Comment on above: Order Comment: Speci men Type: BLOOD SPECIMENOrdering Facility: [facility] Address: [address] [place] [address] Performed By: #### 2 4323-8 ####MCLAIN LABORATORYCLIA [id number] [place] [address] [place] eGFRcr SerPlBld CKD-EPI 2020 100 mL/min/1.73m??? Normal >=60 [facility] Comment on above: Order Comment: Speci men Type: BLOOD SPECIMENOrdering Facility: [facility] Address: [address] [place] [address] Result Comment: Kaylyn mated Glomerular Filtration Rate (eGFR) is calculated using the 2020 CKD-EPI creatinine equation. This equation utilizes serum creatinine, sex, and age as parameters. The creatinine assay has traceable calibration to isotope dilution-mass spectrometry. Refer to KDIGO guidelines for clinical interpretation. In patients with unstable renal function, e.g. those with acute kidney injury, the eGFR may not accurately reflect actual GFR. Performed By: #### 2 4323-8 ####[facility]ST[facility] LABORATORYCLIA [id number] [place] [address] [place] Glucose [Mass/Vol] 89 mg/dL Normal 74-99 [facility] Comment on above: Order Comment: Steve lemons Type: BLOOD SPECIMENOrdering Facility: [facility] Address: [address] [place] [address] Result Comment: The [place] [employer] (ADA) provides guidance for cutoff values for fasting glucose and random glucose. The ADA defines fasting as no caloric intake for at least 8 hours. Fasting plasma glucose results between 100 to 125 mg/dL indicate increased risk for diabetes (prediabetes).Fasting plasma glucose results greater than or equal to 126 mg/dL meet the criteria for diagnosis of diabetes. In the absence of unequivocal hyperglycemia, results should be confirmed by repeat testing. In a patient with classic symptoms of hyperglycemia or hyperglycemic crisis, random plasma glucose results greater than or equal to 200 mg/dL meet the criteria for diagnosis of diabetes.Reference: Standards of Medical Care in Diabetes 2016, [place] [employer]. Diabetes Care. 2016.39(Suppl 1). Performed By: #### 2 4323-8 ####GLADSTONE LABORATORYCLIA [id number] [place] [id number] [place] Potassium [Moles/Vol] 3.9 mmol/L Normal 3.7-5.1 [facility] Comment on above: Order Comment: Steve lemons Type: BLOOD SPECIMENOrdering Facility: [facility] Address: [address] [place] [address] Performed By: #### 2 4323-8 ####MCLAIN LABORATORYCLIA [id number] [place] [address] [place] Protein [Mass/Vol] 5.7 g/dL Low 6.3-8.0 [facility] Comment on above: Order Comment: Steve lemons Type: BLOOD SPECIMENOrdering Facility: [facility] Address: [address] [place] [address] Performed By: #### 2 4323-8 ####MCLAIN LABORATORYCLIA [id number] [address] [place] Sodium [Moles/Vol] 130 mmol/L Low 136-144 [facility] Comment on above: Order Comment: Speci men Type: BLOOD SPECIMENOrdering Facility: [facility] Address: [address] [place] [address] Performed By: #### 2 4323-8 ####MCLAIN LABORATORYCLIA [id number] [address] [place] Urea nitrogen [Mass/Vol] 4 mg/dL Low 7-21 [facility] Comment on above: Order Comment: Speci men Type: BLOOD SPECIMENOrdering Facility: [facility] Address: [address] [place] [address] Performed By: #### 2 4323-8 ####MCLAIN LABORATORYCLIA [id number] [address] [place] CBC panel Auto (Bld)on 05-31 Erythrocyte distribution width (RBC) [Ratio] 15.3 % High 11.5-15.0 [facility] Comment on above: Order Comment: Speci men Type: BLOOD SPECIMENOrdering Facility: [facility] Address: [address] [place] [address] Performed By: #### 5 8410-2 ####MCLAIN LABORATORYCLIA [id number] [address] [place] Hematocrit (Bld) [Volume fraction] 24.2 % Low 36.0-46.0 [facility] Comment on above: Order Comment: Speci men Type: BLOOD SPECIMENOrdering Facility: [facility] Address: [address] [place] [address] Performed By: #### 5 8410-2 ####MCLAIN LABORATORYCLIA [id number] [address] [place] Hemoglobin (Bld) [Mass/Vol] 8.6 g/dL Low 11.5-15.5 [facility] Comment on above: Order Comment: Speci men Type: BLOOD SPECIMENOrdering Facility: [facility] Address: [address] [place] [address] Performed By: #### 5 8410-2 ####MCLAIN LABORATORYCLIA [id number] [address] MCH (RBC) [Entitic mass] 37.7 pg High 26.0-34.0 [facility] Comment on above: Order Comment: Speci men Type: BLOOD SPECIMENOrdering Facility: [facility] Address: [address] [place] [address] Performed By: #### 5 8410-2 ####MCLAIN LABORATORYCLIA [id number] [address] MCHC (RBC) [Mass/Vol] 35.5 g/dL Normal 30.5-36.0 [facility] Comment on above: Order Comment: Speci men Type: BLOOD SPECIMENOrdering Facility: [facility] Address: [address] [place] [address] Performed By: #### 5 8410-2 ####MCLAIN LABORATORYCLIA [id number] [address] MCV (RBC) [Entitic vol] 106.1 fL High 80.0-100.0 [facility] Comment on above: Order Comment: Speci men Type: BLOOD SPECIMENOrdering Facility: [facility] Address: [address] [place] [address] Performed By: #### 5 8410-2 ####MCLAIN LABORATORYCLIA [id number] [address] Nucleated RBC (Bld) [#/Vol] 10*3/uL Normal <0.01 [facility] Comment on above: Order Comment: Speci men Type: BLOOD SPECIMENOrdering Facility: [facility] Address: [address] [place] [address] Performed By: #### 5 8410-2 ####MCLAIN LABORATORYCLIA [id number] [address] Platelet mean volume (Bld) [Entitic vol] 9.0 fL Normal 9.0-12.7 [facility] Comment on above: Order Comment: Speci men Type: BLOOD SPECIMENOrdering Facility: [facility] Address: [address] [place] [address] Performed By: #### 5 8410-2 ####MCLAIN LABORATORYCLIA [id number] [address] [place] Platelets (Bld) [#/Vol] 94 10*3/uL Low 150-400 [facility] Comment on above: Order Comment: Speci men Type: BLOOD SPECIMENOrdering Facility: [facility] Address: [address] [place] [address] Performed By: #### 5 8410-2 ####MCLAIN LABORATORYCLIA [id number] [place] [address] [place] RBC (Bld) [#/Vol] 2.28 10*6/uL Low 3.90-5.20 [facility] Comment on above: Order Comment: Speci men Type: BLOOD SPECIMENOrdering Facility: [facility] Address: [address] [place] [address] Performed By: #### 5 8410-2 ####MCLAIN LABORATORYCLIA [id number] [address] [place] WBC (Bld) [#/Vol] 3.76 10*3/uL Normal 3.70-11.00 [facility] Comment on above: Order Comment: Speci men Type: BLOOD SPECIMENOrdering Facility: [facility] Address: [address] [place] [address] Performed By: #### 5 8410-2 ####MCLAIN LABORATORYCLIA [id number] [address] [place] CONSULT PROGon 05-31-2025 CONSULT PROG Normal [facility] CONSULT PROG Normal [facility] CONSULT PROG Normal [facility] Comprehensive metabolic 2000 panelon 05-31-2025 Albumin [Mass/Vol] 3.2 g/dL Low 3.9-4.9 [facility] Comment on above: Order Comment: Speci men Type: BLOOD SPECIMENOrdering Facility: [facility] Address: [address] [place] [address] Performed By: #### 2 4323-8, 97481-8 ####MCLAIN LABORATORYCLIA [id number] [place] [address] [place] ALP [Catalytic activity/Vol] 173 U/L High 34-123 [facility] Comment on above: Order Comment: Speci men Type: BLOOD SPECIMENOrdering Facility: [facility] Address: [address] [facility] [place] [address] Performed By: #### 2 432-8, ####MCLAIN LABORATORYCLIA [id number] [place] [id number] [place] ALT [Catalytic activity/Vol] 12 U/L Normal 7-38 [facility] Comment on above: Order Comment: Speci men Type: BLOOD SPECIMENOrdering Facility: [facility] Address: [address] [place] [address] Performed By: #### 2 4323-8, ####MCLAIN LABORATORYCLIA [id number] [place] [address] [place] Anion gap [Moles/Vol] 10 mmol/L Normal 8-15 [facility] Comment on above: Order Comment: Speci men Type: BLOOD SPECIMENOrdering Facility: [facility] Address: [address] [place], [place] [address] [address] Performed By: #### 2 4328, ####MCLAIN LABORATORYCLIA [id number] [place] [address] [place] AST [Catalytic activity/Vol] 45 U/L High 13-35 [facility] Comment on above: Order Comment: Speci men Type: BLOOD SPECIMENOrdering Facility: [facility] Address: [address] [place] [id number] Performed By: #### 2 4323-8, ####MCLAIN LABORATORYCLIA [id number] [place] [address] [place] Bilirubin [Mass/Vol] 4.9 mg/dL High 0.2-1.3 [facility] Comment on above: Order Comment: Speci men Type: BLOOD SPECIMENOrdering Facility: [facility] Address: [address] [place] [id number] Performed By: #### 2 4323-8, ####MCLAIN LABORATORYCLIA [id number] [place] [address] [place] Calcium [Mass/Vol] 7.8 mg/dL Low 8.5-10.2 [facility] Comment on above: Order Comment: Speci men Type: BLOOD SPECIMENOrdering Facility: [facility] Address: [address] [place] [address] Performed By: #### 2 432-8, ####MCLAIN LABORATORYCLIA [id number] [place] [address] [place] Chloride [Moles/Vol] 93 mmol/L Low 98-107 [facility] Comment on above: Order Comment: Speci men Type: BLOOD SPECIMENOrdering Facility: [facility] Address: [address] [place] [address] Performed By: #### 2 4328, ####MCLAIN LABORATORYCLIA [id number] [place] [address] [place] CO2 [Moles/Vol] 25 mmol/L Normal 22-30 [facility] Comment on above: Order Comment: Speci men Type: BLOOD SPECIMENOrdering Facility: [facility] Address: [address] [place] [address] Performed By: #### 2 4323-8, ####MCLAIN LABORATORYCLIA [id number] [place] [address] [place] Creatinine [Mass/Vol] 0.44 mg/dL Low 0.58-0.96 [facility] Comment on above: Order Comment: Speci men Type: BLOOD SPECIMENOrdering Facility: [facility] Address: [address] [place] [id number] Performed By: #### 2 4323-8, ####MCLAIN LABORATORYCLIA [id number] [place] [address] [place] eGFRcr SerPlBld CKD-EPI 2020 102 mL/min/1.73m??? Normal >=60 [facility] Comment on above: Order Comment: Steve lemons Type: BLOOD SPECIMENOrdering Facility: [facility] Address: [address] [place] [address] [place] [address] Result Comment: Kaylyn mated Glomerular Filtration Rate (eGFR) is calculated using the 2020 CKD-EPI creatinine equation. This equation utilizes serum creatinine, sex, and age as parameters. The creatinine assay has traceable calibration to isotope dilution-mass spectrometry. Refer to KDIGO guidelines for clinical interpretation. In patients with unstable renal function, e.g. those with acute kidney injury, the eGFR may not accurately reflect actual GFR. Performed By: #### 2 4323-8, ####GLADSTONE LABORATORYCLIA [id number] [place] [address] [place] Glucose [Mass/Vol] 86 mg/dL Normal 74-99 [facility] Comment on above: Order Comment: Steve lemons Type: BLOOD SPECIMENOrdering Facility: [facility] Address: [address] [place] [address] Result Comment: The [place] [employer] (ADA) provides guidance for cutoff values for fasting glucose and random glucose. The ADA defines fasting as no caloric intake for at least 8 hours. Fasting plasma glucose results between 100 to 125 mg/dL indicate increased risk for diabetes (prediabetes).Fasting plasma glucose results greater than or equal to 126 mg/dL meet the criteria for diagnosis of diabetes. In the absence of unequivocal hyperglycemia, results should be confirmed by repeat testing. In a patient with classic symptoms of hyperglycemia or hyperglycemic crisis, random plasma glucose results greater than or equal to 200 mg/dL meet the criteria for diagnosis of diabetes.Reference: Standards of Medical Care in Diabetes 2016, [place] [employer]. Diabetes Care. 2016.39(Suppl 1). Performed By: #### 2 4323-8, ####GL[facility]ST[facility] LABORATORYCLIA [id number] [place] [address] [place] Potassium [Moles/Vol] 3.5 mmol/L Low 3.7-5.1 [facility] Comment on above: Order Comment: Steve lemons Type: BLOOD SPECIMENOrdering Facility: [facility] Address: [address] [place] [address] [place] [address] Performed By: #### 2 432-8, ####MCLAIN LABORATORYCLIA [id number] [place] [address] [place] Protein [Mass/Vol] 5.3 g/dL Low 6.3-8.0 [facility] Comment on above: Order Comment: Speci men Type: BLOOD SPECIMENOrdering Facility: [facility] Address: [address] [place] [address] Performed By: #### 2 8, ####MCLAIN LABORATORYCLIA [id number] [place] [id number] [place] Sodium [Moles/Vol] 128 mmol/L Low 136-144 [facility] Comment on above: Order Comment: Speci men Type: BLOOD SPECIMENOrdering Facility: [facility] Address: [address] [place] [address] Performed By: #### 2 4328, ####MCLAIN LABORATORYCLIA [id number] [place] [address] [place] Urea nitrogen [Mass/Vol] 5 mg/dL Low 7-21 [facility] Comment on above: Order Comment: Speci men Type: BLOOD SPECIMENOrdering Facility: [facility] Address: [address] [place] [address] Performed By: #### 2 8, ####MCLAIN LABORATORYCLIA [id number] [place] [id number] [place] Magnesium SerPl-mCncon 05-31 Magnesium [Mass/Vol] 1.7 mg/dL Normal 1.7-2.3 [facility] Comment on above: Order Comment: Speci men Type: BLOOD SPECIMENOrdering Facility: [facility] Address: [address] [place] [address] Performed By: #### 2 4323-8, ####CMLAIN LABORATORYCLIA [id number] [place] [id number] [place] ANES POSTPROC EVALon 025 ANES POSTPROC EVAL Normal [facility] ANES PRE-OPon 05-30-2025 ANES PRE-OP Normal [facility] Bacteria Spec Anaerobe Culto n 05-30-2025 Bacteria identified Anaer cx Nom (Unsp spec) Negative Normal [facility] Comment on above: Performed By: #### 6 35-3, 6462-6 ####[facility] LABCLIA [id number] [id number], [place] [address] [place] Bacteria identified Anaer cx Nom (Unsp spec) Negative Normal [facility] Comment on above: Performed By: #### 6 35-3, 6462-6 ####[facility] LABCLIA [id number] [address] [id number], [place] [address] [place] Bacteria Wnd Culton 05-30-20 Bacteria identified Cx Nom (Wound) Abnormal [facility] Comment on above: Performed By: #### 6 35-3, 6462-6 ####[facility] LABCLIA [id number] [address] [facility] [id number], [place] [address] [place] Bacteria identified Cx Nom (Wound) CULTURE, WOUND: No growth GRAM STAIN: No organisms seen No Polymorphonuclear Leukocytes Normal [facility] Comment on above: Performed By: #### 6 35-3, 6462-6 ####[facility] LABCLIA [id number] [facility] [id number], [place] [address] [place] CBC panel Auto (Bld)on 05-30 Erythrocyte distribution width (RBC) [Ratio] 15.2 % High 11.5-15.0 [facility] Comment on above: Order Comment: Speci men Type: BLOOD SPECIMENOrdering Facility: [facility] Address: [address] [place] [address] Performed By: #### 5 8410-2 ####[facility]ST[facility] LABORATORYCLIA [id number] [place] [address] [place] Hematocrit (Bld) [Volume fraction] 24.5 % Low 36.0-46.0 [facility] Comment on above: Order Comment: Speci men Type: BLOOD SPECIMENOrdering Facility: [facility] Address: [address] [place] [address] Performed By: #### 5 8410-2 ####MCLAIN LABORATORYCLIA [id number] [address] Hemoglobin (Bld) [Mass/Vol] 9.0 g/dL Low 11.5-15.5 [facility] Comment on above: Order Comment: Speci men Type: BLOOD SPECIMENOrdering Facility: [facility] Address: [address] [place] [address] Performed By: #### 5 8410-2 ####MCLAIN LABORATORYCLIA [id number] [address] MCH (RBC) [Entitic mass] 38.1 pg High 26.0-34.0 [facility] Comment on above: Order Comment: Speci men Type: BLOOD SPECIMENOrdering Facility: [facility] Address: [address] [place] [address] Performed By: #### 5 8410-2 ####MCLAIN LABORATORYCLIA [id number] [address] MCHC (RBC) [Mass/Vol] 36.7 g/dL High 30.5-36.0 [facility] Comment on above: Order Comment: Speci men Type: BLOOD SPECIMENOrdering Facility: [facility] Address: [address] [place] [address] Performed By: #### 5 8410-2 ####MCLAIN LABORATORYCLIA [id number] [address] MCV (RBC) [Entitic vol] 103.8 fL High 80.0-100.0 [facility] Comment on above: Order Comment: Speci men Type: BLOOD SPECIMENOrdering Facility: [facility] Address: [address] [place] [address] Performed By: #### 5 8410-2 ####MCLA[facility] LABORATORYCLIA [id number] [address] Nucleated RBC (Bld) [#/Vol] 10*3/uL Normal <0.01 [facility] Comment on above: Order Comment: Speci men Type: BLOOD SPECIMENOrdering Facility: [facility] Address: [address] [place] [address] Performed By: #### 5 8410-2 ####MCLAIN LABORATORYCLIA [id number] [place] [id number] [place] Platelet mean volume (Bld) [Entitic vol] 9.2 fL Normal 9.0-12.7 [facility] Comment on above: Order Comment: Speci men Type: BLOOD SPECIMENOrdering Facility: [facility] Address: [address] [place] [address] Performed By: #### 5 8410-2 ####MCLAIN LABORATORYCLIA [id number] [place] [id number] [place] Platelets (Bld) [#/Vol] 93 10*3/uL Low 150-400 [facility] Comment on above: Order Comment: Speci men Type: BLOOD SPECIMENOrdering Facility: [facility] Address: [address] [place] [address] Performed By: #### 5 8410-2 ####MCLAIN LABORATORYCLIA [id number] [place] [address] [place] RBC (Bld) [#/Vol] 2.36 10*6/uL Low 3.90-5.20 [facility] Comment on above: Order Comment: Speci men Type: BLOOD SPECIMENOrdering Facility: [facility] Address: [address] [place], [place] [address] [address] Performed By: #### 5 8410-2 ####MCLAIN LABORATORYCLIA [id number] [place] [id number] [place] WBC (Bld) [#/Vol] 4.82 10*3/uL Normal 3.70-11.00 [facility] Comment on above: Order Comment: Speci men Type: BLOOD SPECIMENOrdering Facility: [facility] Address: [address] [place] [address] Performed By: #### 5 8410-2 ####MCLAIN LABORATORYCLIA [id number] [place] [address] [place] [facility] CONSULTon 05-30-2025 CONSULT [facility] CONSULT [facility] CONSULT PROGon 05-30-2025 CONSULT PROG [facility] CONSULT PROG [facility] CONSULT PRO [facility] Comprehensive metabolic 2000 panelon 05-30-2025 Albumin [Mass/Vol] 2.8 g/dL Low 3.9-4.9 [facility] Comment on above: Order Comment: Speci men Type: BLOOD SPECIMENOrdering Facility: [facility] Address: [address] [place] [address] Performed By: #### 2 4323-8, 2951-2, 15123-1, 2777-1 ####[facility]ORATORYCLIA [id number] [place] [address] [place] ALP [Catalytic activity/Vol] 190 U/L High 34-123 [facility] Comment on above: Order Comment: Speci men Type: BLOOD SPECIMENOrdering Facility: [facility] Address: [address] [place] [address] Performed By: #### 2 4323-8, 2951-2, 90178-1, 2777-1 ####[facility]ORATORYCLIA [id number] [address] STATES OF [facility] ALT [Catalytic activity/Vol] 13 U/L Normal 7-38 [facility] Comment on above: Order Comment: Speci men Type: BLOOD SPECIMENOrdering Facility: [facility] Address: [address] [place] [address] Performed By: #### 2 4323-8, 2951-2, 22560-4, 2777-1 ####[facility]ORATORYCLIA [id number] [address] Anion gap [Moles/Vol] 10 mmol/L Normal 8-15 [facility] Comment on above: Order Comment: Speci men Type: BLOOD SPECIMENOrdering Facility: [facility] Address: [address] [place] [address] Performed By: #### 2 4323-8, 2951-2, 28762-2, 2777-1 ####[facility]ORATORYCLIA [id number] [address] [place] AST [Catalytic activity/Vol] 41 U/L High 13-35 [facility] Comment on above: Order Comment: Speci men Type: BLOOD SPECIMENOrdering Facility: [facility] Address: [address] [id number] Performed By: #### 2 4323-8, 2951-2, 31299-5, 2777-1 ####[facility] LABORATORYCLIA [id number] [place] [address] [place] Bilirubin [Mass/Vol] 4.4 mg/dL High 0.2-1.3 [facility] Comment on above: Order Comment: Speci men Type: BLOOD SPECIMENOrdering Facility: [facility] Address: [address] [place] [id number] Performed By: #### 2 4323-8, 2951-2, 18649-5, 2777-1 ####[facility] LABORATORYCLIA [id number] [place] [address] [place] Calcium [Mass/Vol] 7.9 mg/dL Low 8.5-10.2 [facility] Comment on above: Order Comment: Speci men Type: BLOOD SPECIMENOrdering Facility: [facility] Address: [address] [id number] Performed By: #### 2 4323-8, 2951-2, 50127-2, 2777-1 ####[facility] LABORATORYCLIA [id number] [place] [address] [place] Chloride [Moles/Vol] 88 mmol/L Low 98-107 [facility] Comment on above: Order Comment: Speci men Type: BLOOD SPECIMENOrdering Facility: [facility] Address: [address] [place] [id number] Performed By: #### 2 4323-8, 2951-2, 88376-3, 2777-1 ####[facility] LABORATORYCLIA [id number] [place] [address] [place] CO2 [Moles/Vol] 26 mmol/L Normal 22-30 [facility] Comment on above: Order Comment: Speci men Type: BLOOD SPECIMENOrdering Facility: [facility] Address: [address] [facility] [place] [address] Performed By: #### 2 4323-8, 2951-2, 32144-8, 2777-1 ####[facility] LABORATORYCLIA [id number] [place] [id number] [place] [facility] Creatinine [Mass/Vol] 0.42 mg/dL Low 0.58-0.96 [facility] Comment on above: Order Comment: Steve lemons Type: BLOOD SPECIMENOrdering Facility: [facility] Address: [address] [place] [address] Performed By: #### 2 4323-8, 2951-2, 57263-1, 2777-1 ####[facility] LABORATORYCLIA [id number] [place] [id number] [facility] eGFRcr SerPlBld CKD-EPI 2020 103 mL/min/1.73m??? Normal >=60 [facility] Comment on above: Order Comment: Kathi cristo Type: BLOOD SPECIMENOrdering Facility: [facility] Address: [address] [place] [address] Result Comment: Kaylyn mated Glomerular Filtration Rate (eGFR) is calculated using the 2020 CKD-EPI creatinine equation. This equation utilizes serum creatinine, sex, and age as parameters. The creatinine assay has traceable calibration to isotope dilution-mass spectrometry. Refer to KDIGO guidelines for clinical interpretation. In patients with unstable renal function, e.g. those with acute kidney injury, the eGFR may not accurately reflect actual GFR. Performed By: #### 2 4323-8, 2951-2, 26604-8, 2777-1 ####[facility] LABORATORYCLIA [id number] [place] [id number] [place] Glucose [Mass/Vol] 101 mg/dL High 74-99 [facility] Comment on above: Order Comment: Steve lemons Type: BLOOD SPECIMENOrdering Facility: [facility] Address: [address] [id number] Result Comment: The [place] Diabetes Association (ADA) provides guidance for cutoff values for fasting glucose and random glucose. The ADA defines fasting as no caloric intake for at least 8 hours. Fasting plasma glucose results between 100 to 125 mg/dL indicate increased risk for diabetes (prediabetes).Fasting plasma glucose results greater than or equal to 126 mg/dL meet the criteria for diagnosis of diabetes. In the absence of unequivocal hyperglycemia, results should be confirmed by repeat testing. In a patient with classic symptoms of hyperglycemia or hyperglycemic crisis, random plasma glucose results greater than or equal to 200 mg/dL meet the criteria for diagnosis of diabetes.Reference: Standards of Medical Care in Diabetes 2016, [place] [employer]. Diabetes Care. 2016.39(Suppl 1). Performed By: #### 2 4323-8, 2951-2, 96004-8, 2777-1 ####[facility] LABORATORYCLIA [id number] [place] [address] [place] Potassium [Moles/Vol] 3.5 mmol/L Low 3.7-5.1 [facility] Comment on above: Order Comment: Steve lemons Type: BLOOD SPECIMENOrdering Facility: [facility] Address: [address] [place] [address] Performed By: #### 2 4323-8, 2951-2, 63665-6, 2777-1 ####[facility] LABORATORYCLIA [id number] [place] [address] [place] Protein [Mass/Vol] 5.0 g/dL Low 6.3-8.0 [facility] Comment on above: Order Comment: Steve lemons Type: BLOOD SPECIMENOrdering Facility: [facility] Address: [address] [place] [address] Performed By: #### 2 4323-8, 2951-2, 66707-0, 2777-1 ####[facility] LABORATORYCLIA [id number] [place] [address] [place] Urea nitrogen [Mass/Vol] 6 mg/dL Low 7-21 [facility] Comment on above: Order Comment: Steve lemons Type: BLOOD SPECIMENOrdering Facility: [facility] Address: [address] [place] [address] Performed By: #### 2 4323-8, 2951-2, 72416-7, 2777-1 ####[facility] LABORATORYCLIA [id number] [place] [address] [place] Cortbrigido Kim 05-30-20 25 Cortisol [Mass/Vol] 4.8 ug/dL Normal 4.8-19.5 [facility] Comment on above: Order Comment: Speci men Type: BLOOD SPECIMENOrdering Facility: [facility] Address: [address] [place] [address] Result Comment: Prov ided reference range is from 6-10 AM sample collection time.Cortisol Reference Range: 6-10 AM = 4.8-19.5 ug/dL, 4-8 PM = 2.5-11.9 ug/dL Performed By: #### 2 143-6 ####[facility] LABCLIA [id number] [place] [id number] [place] Folate SerPl-ncon 05-30-20 25 Folate [Mass/Vol] 2.8 ng/mL Low >4.7 [facility] Comment on above: Order Comment: Speci men Type: BLOOD SPECIMENOrdering Facility: [facility] Address: [address] [place] [address] Performed By: #### 2 132-9, 2284-8 ####[facility] LABORATORYCLIA [id number] [place] [address] [place] Magnesium SerPl-ncon 05-30 Magnesium [Mass/Vol] 1.9 mg/dL Normal 1.7-2.3 [facility] Comment on above: Order Comment: Speci men Type: BLOOD SPECIMENOrdering Facility: [facility] Address: [address] [place] [address] Performed By: #### 1 9123-9, 2951-2 ####[facility] LABORATORYCLIA [id number] [place] [address] [place] NUTRITIONon 05-30-2025 NUTRITION [facility] OPERATIVE NOon 05-30-2025 OPERATIVE NO [facility] PHOSPHATIDYLETHANOL (PETH)on 05-30-2025 EER PETH See Note [facility] Comment on above: Order Comment: Speci men Type: BLOOD SPECIMENOrdering Facility: [facility] Address: [address] [place] [address] Result Comment: Auth orized individuals can access the [employer] Enhanced Reportwith an [employer] Connect account using the following link.Your local lab can assist you in obtaining the patientreport if you don't have a Connect account.[email or web address] Performed By: #### P ETH ####[facility]ORATORIESCLIA [id number] [place] [address] PETH 16:0/18.2 (PLPETH) 118 ng/mL [facility] Comment on above: Order Comment: Speci men Type: BLOOD SPECIMENOrdering Facility: [facility] Address: [address] [place] [address] Result Comment: Refe rence ranges are not well established. Performed By: #### P ETH ####[facility]ORATORIESCLIA [id number] [place] [address] PETH 16:0/18:1 (POPETH) 199 ng/mL [facility] Comment on above: Order Comment: Speci men Type: BLOOD SPECIMENOrdering Facility: [facility] Address: [address] [place] [address] Result Comment: PEth 16:0/18:1 (POPEth)Less than 10 ng/mL............Not detectedLess than 20 ng/mL............Abstinence or light [id number] - 200 ng/mL................Moderate alcohol consumptionGreater than 200 ng/mL........Heavy alcohol consumption or chronicalcohol use(Reference: Ric Lujan and Bethel Long 2018 J. Forensic Sci) Performed By: #### P ETH ####[facility] LABORATORIESCLIA [id number] [place] [address] PETH INTERPRETATION See Comment [facility] Comment on above: Order Comment: Speci men Type: BLOOD SPECIMENOrdering Facility: [facility] Address: [address] [place] [address] Result Comment: Phos phatidylethanol (PEth) is a group of phospholipids formed inthe presence of ethanol, phospholipase D and phosphatidylcholine.PEth is known to be a direct alcohol biomarker. The predominantPEth homologues are PEth 16:0/18:1 (POPEth) and PEth 16:0/18:2(PLPEth), which account for 37-46% and 26-28% of the total PEthhomologues, respectively. PEth is incorporated into thephospholipid membrane of red blood cells and has a generalhalf-life of 4-10 days and a window of detection of 2-4 weeks.However, the window of detection is longer in individuals whochronically or excessively consume alcohol. The limit ofquantification is 10 ng/mL. Serial monitoring of PEth may behelpful in monitoring alcohol abstinence over time. PEth resultsshould be interpreted in the context of the patient's clinical andbehavioral history.Patients with advanced liver disease may have falsely elevatedPEth concentrations (Fina PICKETT et al 2018, Alcoholism Clinical &Experimental Research).This test was developed and its performance characteristicsdetermined by [facility]. It has not been cleared orapproved by the U.S. Food and Drug Administration. This test wasperformed in a CLIA-certified laboratory and is intended forclinical purposes.Performed By: [facility] [place], [place] [address]ua Director: Hugo Dsouza MD, PhDCLIA Number: [id number] Performed By: #### P ETH ####[facility] HOSPITALIA [id number] [place] [address] Pathology biopsy report Emir (Tiss)on 05-30-2025 AP DISCLAIMER [facility] Comment on above: Order Comment: Speci men Type: TISSUE SPECIMENOrdering Facility: [facility] Address: [address] [place] [address] Result Comment: Ron San Test (LDT) Disclaimer:Performance characteristics of immunohistochemical, immunofluorescent, and chromogenic in-situ hybridization tests have been determined by the performing laboratory within the [facility] Department of Pathology and Laboratory Medicine ([facility], [facility], [facility], [facility], [facility], [facility], or [facility]) in a manner consistent with CLIA requirements. One or more of these tests may not have been cleared or approved by the FDA. The [facility] Department of Pathology and Laboratory Medicine is regulated under CLIA as qualified to perform high-complexity testing. These tests are used for clinical purposes. These should not be regarded as investigational or for research. Positive and negative controls stain appropriately. Performed By: #### 6 6121-5 ####[facility] LABCLIA [id number] [address] [place] CASE REPORT [facility] Comment on above: Order Comment: Speci men Type: TISSUE SPECIMENOrdering Facility: [facility] Address: [address] [place] [address] Result Comment: Surg ica Pathology Report Case: [id number] Provider: Amanda Dougherty DPM Collected: 05/30/2025 12:59 PMOrdering Location: [facility] Received: 05/30/2025 02:21 PMPathologist: Ayanna Huerta MDSpecimens: A) - Skin Lesion/Soft Tissue Ulcer (Specify site in comment), right lower leg ulcer tissue biopsy B) - Skin Lesion/Soft Tissue Ulcer (Specify site in comment), left lower leg ulcer tissue biopsy Performed By: #### 6 6121-5 ####[facility] [id number] [address] [place] CLINICAL HISTORY [facility] Comment on above: Order Comment: Speci men Type: TISSUE SPECIMENOrdering Facility: [facility] Address: [address] [place] [address] Result Comment: Pre- op diagnosis:Wound infection [T14.8XXA, L08.9]Cellulitis of left lower extremity [L03.116]Cellulitis of right lower extremity [L03.115] Performed By: #### 6 6121-5 ####[facility] [id number] [address] [address] [place] DIAGNOSIS COMMENT [facility] Comment on above: Order Comment: Speci men Type: TISSUE SPECIMENOrdering Facility: [facility] Address: [address] [place] [address] Result Comment: A, B . The histologic features of biopsy A and biopsy B are similar and will be described together. Histologic sections demonstrate ulcerated skin with no intact epidermis available for examination. In the dermis, there is fibrosis and interstitial mixed inflammation composed of lymphocytes, plasma cells, and neutrophils. 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 A PAS/F and GMS stain are negative for fungal organisms. A Gram stain is negative for organisms. A Thomas stain is negative for acid-fast organisms.The clinical history was reviewed.Overall, the features of both biopsy A and biopsy B are those of chronic ulcers with mixed acute and chronic inflammation. The differential diagnosis includes venous stasis ulcers and an infectious process. Clinical correlation and correlation with tissue culture is recommended. Performed By: #### 6 6121-5 ####[facility] LABCLIA [id number] [address] FINAL DIAGNOSIS [facility] Comment on above: Order Comment: Speci men Type: TISSUE SPECIMENOrdering Facility: [facility] Address: [address] [place] [address] Result Comment: A. S kin, right lower leg, punch biopsy:- Ulcer with stasis changes and mixed acute and chronic dermal inflammation, see comment.B. Skin, left lower leg, punch biopsy:- Ulcer with dermal fibrosis and mixed acute and chronic inflammation, see comment.MP/TN at 1624 EDT Performed By: #### 6 6121-5 ####[facility] LABCLIA [id number] [address] FINAL PERFORMING LAB [facility] Comment on above: Order Comment: Speci men Type: TISSUE SPECIMENOrdering Facility: [facility] Address: [address] [place] [address] Result Comment: Diag nostic interpretation performed at: [facility], [address] [place] [address], [place] [address] CLIA# [id number] Director: Moises Gonzalez MD Performed By: #### 6 6121-5 ####[facility] LABCLIA [id number] [place] [address] [place] GROSS DESCRIPTION [facility] Comment on above: Order Comment: Speci men Type: TISSUE SPECIMENOrdering Facility: [facility] Address: [address] [place] [address] Result Comment: A. S kin Lesion/Soft Tissue Ulcer (Specify site in comment)Received in formalin are two segments of arroyo, soft skin aggregating to 0.8 x 0.7 x 0.5 cm. The specimens are bisected. Totally submitted in two cassettes.B. Skin Lesion/Soft Tissue Ulcer (Specify site in comment)Received in formalin is a cylindrical segment of skin and subcutaneous tissue measuring 0.3 x 0.3 x 0.4 cm. On the skin surface there is a 0.3 x 0.3 cm, pink-red, wrinkled area. The specimen is bisected. Totally submitted in one cassette.CL May 30, 2025 4:26 PMGross examination performed at [facility], [address] [place] [address] Performed By: #### 6 6121-5 ####[facility] LABIA [id number] [place] [address] [place] Phosphate SerPl-mCncon 05-30 Phosphate [Mass/Vol] 2.6 mg/dL Low 2.7-4.8 [facility] Comment on above: Order Comment: Speci men Type: BLOOD SPECIMENOrdering Facility: [facility] Address: [address] [place] [address] Performed By: #### 2 4323-8, 2951-2, 72190-3, 2777-1 ####[facility] LABORATORYCLIA [id number] [place] [address] [place] Procalcitonin SerPl-mCncon 0 05-30-2025 Procalcitonin [Mass/Vol] 0.29 ng/mL High <0.09 [facility] Comment on above: Order Comment: Speci men Type: BLOOD SPECIMENOrdering Facility: [facility] Address: [address] [place], [place] [address] Result Comment: For a guided interpretation of test results, please visit the Change in Procalcitonin Calculator, [email or web address]. Performed By: #### 2 4323-8, 2951-2, 62672-9, 2777-1 ####[facility] LABORATORYCLIA [id number] [place] [address] [facility] Sodium SerPl-sCncon 05-30-20 25 Sodium [Moles/Vol] 125 mmol/L Low 136-144 [facility] Comment on above: Order Comment: Speci men Type: BLOOD SPECIMENOrdering Facility: [facility] Address: [address] [place] [address] Performed By: #### 1 9123-9, 2951-2 ####[facility] LABORATORYCLIA [id number] [address] Sodium [Moles/Vol] 124 mmol/L Low 136-144 [facility] Comment on above: Order Comment: Speci men Type: BLOOD SPECIMENOrdering Facility: [facility] Address: [address] [place] [address] Performed By: #### 2 4323-8, 2951-2, 51468-0, 2777-1 ####[facility] LABORATORYCLIA [id number] [address] [place] Vit B12 SerPl-mCncon 025 Cobalamin (Vitamin B12) [Mass/Vol] 1660 pg/mL High 232-1245 [facility] Comment on above: Order Comment: Speci men Type: BLOOD SPECIMENOrdering Facility: [facility] Address: [address] [place], [place] [address] Performed By: #### 2 132-9, 2284-8 ####[facility] LABORATORYCLIA [id number] [address] 25(OH)D3 SerPl-mCncon 2024 25-hydroxyvitamin D3 [Mass/Vol] 61.8 ng/mL Normal 31.0-80.0 [facility] Comment on above: Order Comment: Speci men Type: BLOOD SPECIMENOrdering Facility: [facility] Address: [address] [place] [address] Performed By: #### 1 989-3 ####[facility] LABCLIA [id number] [facility] [address] [place] [address] [place] ALLIED HEALTHon 05-29-2025 ALLIED HEALTH [facility] Bacteria Bld Culton 05-29-20 25 Bacteria identified Cx Nom (Bld) CULTURE, BLOOD: No growth 5 days [facility] Comment on above: Performed By: #### 6 00-7 ####[facility] LABCLIA [id number] [facility] [address] [place] [address] [place] Bacteria identified Cx Nom (Bld) CULTURE, BLOOD: No growth 5 days GRAM STAIN: This blood culture had less than the recommended 8 ml per bottle, which could decrease the sensitivity of the test. [facility] Comment on above: Performed By: #### 6 00-7 ####[facility] LABCLIA [id number] [address] [place] [address] [place] Bacteria Ur Culton 5 Bacteria identified Cx Nom (U) CULTURE, URINE: No growth (<1,000 CFU/ml) [facility] Comment on above: Performed By: #### 6 30-4 ####[facility] LABCLIA [id number] [address] [place] [address] [place] CASE MGT INIT ASSESon 2024 [facility] CBC panel Auto (Bld)on 05-29 Erythrocyte distribution width (RBC) [Ratio] 15.5 % High 11.5-15.0 [facility] Comment on above: Order Comment: Speci men Type: BLOOD SPECIMENOrdering Facility: [facility] Address: [address] [place] [address] Performed By: #### 5 8410-2 ####[facility]ORATORYCLIA [id number] [address] Hematocrit (Bld) [Volume fraction] 26.2 % Low 36.0-46.0 [facility] Comment on above: Order Comment: Speci men Type: BLOOD SPECIMENOrdering Facility: [facility] Address: [address] [place] [address] Performed By: #### 5 8410-2 ####[facility]ORATORYCLIA [id number] [address] [place] Hemoglobin (Bld) [Mass/Vol] 9.6 g/dL Low 11.5-15.5 [facility] Comment on above: Order Comment: Speci men Type: BLOOD SPECIMENOrdering Facility: [facility] Address: [address] [place] [address] Performed By: #### 5 8410-2 ####[facility] LABORATORYCLIA [id number] [address] [place] [facility] MCH (RBC) [Entitic mass] 37.9 pg High 26.0-34.0 [facility] Comment on above: Order Comment: Speci men Type: BLOOD SPECIMENOrdering Facility: [facility] Address: [address] [place] [address] Performed By: #### 5 8410-2 ####[facility] LABORATORYCLIA [id number] [address] [place] MCHC (RBC) [Mass/Vol] 36.6 g/dL High 30.5-36.0 [facility] Comment on above: Order Comment: Speci men Type: BLOOD SPECIMENOrdering Facility: [facility] Address: [address] [place] [address] Performed By: #### 5 8410-2 ####[facility] LABORATORYCLIA [id number] [address] MCV (RBC) [Entitic vol] 103.6 fL High 80.0-100.0 [facility] Comment on above: Order Comment: Speci men Type: BLOOD SPECIMENOrdering Facility: [facility] Address: [address] [place] [address] Performed By: #### 5 8410-2 ####[facility] LABORATORYCLIA [id number] [address] [place] Nucleated RBC (Bld) [#/Vol] 10*3/uL Normal <0.01 [facility] Comment on above: Order Comment: Speci men Type: BLOOD SPECIMENOrdering Facility: [facility] Address: [address] [place] [address] Performed By: #### 5 8410-2 ####[facility] LABORATORYCLIA [id number] [address] [place] Platelet mean volume (Bld) [Entitic vol] 9.5 fL Normal 9.0-12.7 [facility] Comment on above: Order Comment: Speci men Type: BLOOD SPECIMENOrdering Facility: [facility] Address: [address] [place] [address] Performed By: #### 5 8410-2 ####[facility] LABORATORYCLIA [id number] [address] [place] Platelets (Bld) [#/Vol] 94 10*3/uL Low 150-400 [facility] Comment on above: Order Comment: Speci men Type: BLOOD SPECIMENOrdering Facility: [facility] Address: [address] [place] [address] Result Comment: No c lot detected. Performed By: #### 5 8410-2 ####[facility] LABORATORYCLIA [id number] [address] [place] RBC (Bld) [#/Vol] 2.53 10*6/uL Low 3.90-5.20 [facility] Comment on above: Order Comment: Speci men Type: BLOOD SPECIMENOrdering Facility: [facility] Address: [address] [place] [address] Performed By: #### 5 8410-2 ####MCLAIN LABORATORYCLIA [id number] [address] [place] WBC (Bld) [#/Vol] 6.38 10*3/uL Normal 3.70-11.00 [facility] Comment on above: Order Comment: Speci men Type: BLOOD SPECIMENOrdering Facility: [facility] Address: [address] [place], [place] [address] Performed By: #### 5 8410-2 ####[facility] LABORATORYCLIA [id number] [place] [address] [place] CONSULTon 05-29-2025 CONSULT Normal [facility] CONSULT Normal [facility] CONSULT Normal [facility] CONSULT Normal [facility] CONSULT Normal [facility] COPPER BLOODon 05-29-2025 Copper [Mass/Vol] 72 ug/dL Low 80-155 [facility] Comment on above: Order Comment: Speci men Type: BLOOD SPECIMENOrdering Facility: [facility] Address: [address] [place], [place] [address] Result Comment: This test was developed, and its performance characteristics determined by the [facility] Department of Pathology and Laboratory Medicine. It has not been cleared or approved by the FDA. The [facility] Department of Pathology and Laboratory Medicine is regulated under CLIA as qualified to perform high-complexity testing. This test is used for clinical purposes. It should not be regarded as investigational or for research. Performed By: #### 5 763-8, COPPER ####[facility] LABCLIA [id number] [place] [id number] [place] CT ABD/PEL WO IVCONon 2024 CT ABD/PEL WO IVCON Normal [facility] Comprehensive metabolic 2000 panelon 05-29-2025 Albumin [Mass/Vol] 2.7 g/dL Low 3.9-4.9 [facility] Comment on above: Order Comment: Speci men Type: BLOOD SPECIMENOrdering Facility: [facility] Address: [address] [place], [place] [address] Performed By: #### 1 9123-9, 3084-1, 21299-8, 2777-1, 3016-3, 24900-6 ####[facility] LABORATORYCLIA [id number] [place] [id number] [place] ALP [Catalytic activity/Vol] 222 U/L High 34-123 [facility] Comment on above: Order Comment: Speci men Type: BLOOD SPECIMENOrdering Facility: [facility] Address: [address] [place] [address] Performed By: #### 1 9123-9, 3084-1, 62573-8, 2777-1, 3016-3, 26915-2 ####[facility] LABORATORYCLIA [id number] [place] [address] [place] ALT [Catalytic activity/Vol] 14 U/L Normal 7-38 [facility] Comment on above: Order Comment: Speci men Type: BLOOD SPECIMENOrdering Facility: [facility] Address: [address] [place] [address] Performed By: #### 1 9123-9, 3084-1, 93050-6, 2777-1, 3016-3, 26332-4 ####[facility] LABORATORYCLIA [id number] [address] [place] Anion gap [Moles/Vol] 12 mmol/L Normal 8-15 [facility] Comment on above: Order Comment: Speci men Type: BLOOD SPECIMENOrdering Facility: [facility] Address: [address] [place] [address] Performed By: #### 1 9123-9, 3084-1, 75501-8, 2777-1, 3016-3, 05807-3 ####[facility] LABORATORYCLIA [id number] [address] [place] AST [Catalytic activity/Vol] 49 U/L High 13-35 [facility] Comment on above: Order Comment: Speci men Type: BLOOD SPECIMENOrdering Facility: [facility] Address: [address] [place] [address] Performed By: #### 1 9123-9, 3084-1, 63215-2, 2777-1, 3016-3, 34308-6 ####[facility] LABORATORYCLIA [id number] [address] [place] Bilirubin [Mass/Vol] 5.7 mg/dL High 0.2-1.3 [facility] Comment on above: Order Comment: Speci men Type: BLOOD SPECIMENOrdering Facility: [facility] Address: [address] [place] [address] Performed By: #### 1 9123-9, 3084-1, 11259-2, 2777-1, 3016-3, 33233-3 ####[facility] LABORATORYCLIA [id number] [place] [address] [place] Calcium [Mass/Vol] 7.8 mg/dL Low 8.5-10.2 [facility] Comment on above: Order Comment: Speci men Type: BLOOD SPECIMENOrdering Facility: [facility] Address: [address] [place], [place] [address] Performed By: #### 1 9123-9, 3084-1, 73247-3, 2777-1, 3016-3, 13599-9 ####[facility] LABORATORYCLIA [id number] [place] [address] [place] Chloride [Moles/Vol] 87 mmol/L Low 98-107 [facility] Comment on above: Order Comment: Speci men Type: BLOOD SPECIMENOrdering Facility: [facility] Address: [address] [place] [address] Performed By: #### 1 9123-9, 3084-1, 86642-0, 2777-1, 3016-3, 10094-0 ####[facility]ST[facility] LABORATORYCLIA [id number] [place] [address] [place] CO2 [Moles/Vol] 26 mmol/L Normal 22-30 [facility] Comment on above: Order Comment: Speci men Type: BLOOD SPECIMENOrdering Facility: [facility] Address: [address] [place], [place] [address] Performed By: #### 1 9123-9, 3084-1, 41270-3, 2777-1, 3016-3, 07256-1 ####[facility] LABORATORYCLIA [id number] [place] [address] [place] Creatinine [Mass/Vol] 0.47 mg/dL Low 0.58-0.96 [facility] Comment on above: Order Comment: Speci men Type: BLOOD SPECIMENOrdering Facility: [facility] Address: [address] [place] [address] Performed By: #### 1 9123-9, 3084-1, 44152-8, 2777-1, 3016-3, 42606-9 ####[facility] LABORATORYCLIA [id number] [place] [id number] [place] eGFRcr SerPlBld CKD-EPI 2020 101 mL/min/1.73m??? Normal >=60 [facility] Comment on above: Order Comment: Steve lemons Type: BLOOD SPECIMENOrdering Facility: [facility] Address: [address] [place] [address] Result Comment: Kaylyn mated Glomerular Filtration Rate (eGFR) is calculated using the 2020 CKD-EPI creatinine equation. This equation utilizes serum creatinine, sex, and age as parameters. The creatinine assay has traceable calibration to isotope dilution-mass spectrometry. Refer to KDIGO guidelines for clinical interpretation. In patients with unstable renal function, e.g. those with acute kidney injury, the eGFR may not accurately reflect actual GFR. Performed By: #### 1 9123-9, 3084-1, 06190-2, 2777-1, 3016-3, 14766-9 ####[facility] LABORATORYCLIA [id number] [place] [id number] [place] Glucose [Mass/Vol] 90 mg/dL Normal 74-99 [facility] Comment on above: Order Comment: Steve lemons Type: BLOOD SPECIMENOrdering Facility: [facility] Address: [address] [place] [address] Result Comment: The [place] Diabetes Association (ADA) provides guidance for cutoff values for fasting glucose and random glucose. The ADA defines fasting as no caloric intake for at least 8 hours. Fasting plasma glucose results between 100 to 125 mg/dL indicate increased risk for diabetes (prediabetes).Fasting plasma glucose results greater than or equal to 126 mg/dL meet the criteria for diagnosis of diabetes. In the absence of unequivocal hyperglycemia, results should be confirmed by repeat testing. In a patient with classic symptoms of hyperglycemia or hyperglycemic crisis, random plasma glucose results greater than or equal to 200 mg/dL meet the criteria for diagnosis of diabetes.Reference: Standards of Medical Care in Diabetes 2016, [place] [employer]. Diabetes Care. 2016.39(Suppl 1). Performed By: #### 1 9123-9, 3084-1, 65120-4, 2777-1, 3016-3, 09026-5 ####[facility] LABORATORYCLIA [id number] [place] [address] [place] Potassium [Moles/Vol] 2.6 mmol/L Low 3.7-5.1 [facility] Comment on above: Order Comment: Speci men Type: BLOOD SPECIMENOrdering Facility: [facility] Address: [address] [place] [address] Performed By: #### 1 9123-9, 3084-1, 20993-9, 2777-1, 3016-3, 38403-5 ####[facility] LABORATORYCLIA [id number] [place] [address] [place] Protein [Mass/Vol] 5.3 g/dL Low 6.3-8.0 [facility] Comment on above: Order Comment: Speci men Type: BLOOD SPECIMENOrdering Facility: [facility] Address: [address] [place] [address] Performed By: #### 1 9123-9, 3084-1, 68930-6, 2777-1, 3016-3, 45545-8 ####[facility] LABORATORYCLIA [id number] [place] [id number] [place] Sodium [Moles/Vol] 125 mmol/L Low 136-144 [facility] Comment on above: Order Comment: Speci men Type: BLOOD SPECIMENOrdering Facility: [facility] Address: [address] [place] [address] Performed By: #### 1 9123-9, 3084-1, 97548-3, 2777-1, 3016-3, 28264-8 ####[facility] LABORATORYCLIA [id number] [place] [address] [place] Urea nitrogen [Mass/Vol] 6 mg/dL Low 7-21 [facility] Comment on above: Order Comment: Speci men Type: BLOOD SPECIMENOrdering Facility: [facility] Address: [address] [place] [address] Performed By: #### 1 9123-9, 3084-1, 26154-6, 2777-1, 3016-3, 25104-3 ####[facility] LABORATORYCLIA [id number] [address] [place] ECG COMPLETEon 05-29-2025 ECG COMPLETE Normal [facility] Lactate (Bld) [Moles/Vol]on 05-29-2025 Lactate [Moles/Vol] 1.7 mmol/L Normal 0.5-2.2 [facility] Comment on above: Order Comment: Speci men Type: BLOOD SPECIMENOrdering Facility: [facility] Address: [address] [place] [address] Performed By: #### 3 2693-4 ####[facility] LABORATORYCLIA [id number] [place] [address] [place] Magnesium [facility]29 Magnesium [Mass/Vol] 1.3 mg/dL Low 1.7-2.3 [facility] Comment on above: Order Comment: Speci men Type: BLOOD SPECIMENOrdering Facility: [facility] Address: [address] [place] [address] Performed By: #### 1 9123-9, 3084-1, 86776-2, 2777-1, 3016-3, 55137-8 ####[facility] LABORATORYCLIA [id number] [address] [place] NT-proBNP [facility] 05-29 Natriuretic peptide.B prohormone N-Terminal [Mass/Vol] 2188 pg/mL High <125 [facility] Comment on above: Order Comment: Speci men Type: BLOOD SPECIMENOrdering Facility: [facility] Address: [address] [place] [address] Performed By: #### 1 9123-9, 3084-1, 88549-0, 2777-1, 3016-3, 75326-6 ####[facility] LABORATORYCLIA [id number] [place] [address] [place] Osmolality Uron 05-29-2025 Osmolality (U) [Osmolality] 516 mosm/kg Normal 50-1200 [facility] Comment on above: Order Comment: Speci men Type: URINE SPECIMENOrdering Facility: [facility] Address: [address] [place] [address] Performed By: #### 2 695-5 ####[facility] LABCLIA [id number] VIKTORIAEllen [facility]ICAL CENTERBethel [id number] [place] [address] [place] PHOSPHATIDYLETHANOL (PETH)on 05-29-2025 EER PETH See Note Normal [facility] Comment on above: Order Comment: Speci men Type: BLOOD SPECIMENOrdering Facility: [facility] Address: [address] [place] [address] Result Comment: Auth orized individuals can access the sevenload Enhanced Reportwith an sevenload Connect account using the following link.Your local lab can assist you in obtaining the patientreport if you don't have a Connect account.[email or web address] Performed By: #### P ETH ####[facility] LABORATORIESCLIA [id number] [place] [address] PETH 16:0/18.2 (PLPETH) 148 ng/mL Normal [facility] Comment on above: Order Comment: Speci men Type: BLOOD SPECIMENOrdering Facility: [facility] Address: [address] [place] [address] Result Comment: Refe rence ranges are not well established. Performed By: #### P ETH ####DBA GroupUP LABORATORIESCLIA [id number] [place] [address] PETH 16:0/18:1 (POPETH) 249 ng/mL Normal [facility] Comment on above: Order Comment: Speci men Type: BLOOD SPECIMENOrdering Facility: [facility] Address: [address] [place] [address] Result Comment: PEth 16:0/18:1 (POPEth)Less than 10 ng/mL............Not detectedLess than 20 ng/mL............Abstinence or light hoteiguldkcywpqizk10 - 200 ng/mL................Moderate alcohol consumptionGreater than 200 ng/mL........Heavy alcohol consumption or chronicalcohol use(Reference: Ric Lujan and Bethel Long 2018 J. Forensic Sci) Performed By: #### P ETH ####MTHealthagenIA [id number] [place] [address] PETH INTERPRETATION See Comment Normal [facility] Comment on above: Order Comment: Speci men Type: BLOOD SPECIMENOrdering Facility: [facility] Address: [address] [id number] Result Comment: Phos phatidylethanol (PEth) is a group of phospholipids formed inthe presence of ethanol, phospholipase D and phosphatidylcholine.PEth is known to be a direct alcohol biomarker. The predominantPEth homologues are PEth 16:0/18:1 (POPEth) and PEth 16:0/18:2(PLPEth), which account for 37-46% and 26-28% of the total PEthhomologues, respectively. PEth is incorporated into thephospholipid membrane of red blood cells and has a generalhalf-life of 4-10 days and a window of detection of 2-4 weeks.However, the window of detection is longer in individuals whochronically or excessively consume alcohol. The limit ofquantification is 10 ng/mL. Serial monitoring of PEth may behelpful in monitoring alcohol abstinence over time. PEth resultsshould be interpreted in the context of the patient's clinical andbehavioral history.Patients with advanced liver disease may have falsely elevatedPEth concentrations (Fina PICKETT et al 2018, Alcoholism Clinical &Experimental Research).This test was developed and its performance characteristicsdetermined by [facility]. It has not been cleared orapproved by the U.S. Food and Drug Administration. This test wasperformed in a CLIA-certified laboratory and is intended forclinical purposes.Performed By: [facility] [place], [place] [address]Plyxgcvvrs Director: Hugo Dsouza MD, PhDCLIA Number: [id number] Performed By: #### P ETH ####MTHealthagenIA [id number] [place] [address] Phosphate SerPl-mCncon 05-29 Phosphate [Mass/Vol] 1.7 mg/dL Low 2.7-4.8 [facility] Comment on above: Order Comment: Speci men Type: BLOOD SPECIMENOrdering Facility: [facility] Address: [address] [place] [address] Performed By: #### 1 9123-9, 3084-1, 91146-2, 2777-1, 3016-3, 58733-2 ####[facility] LABORATORYCLIA [id number] [place] [address] [place] STAPHYLOCOCCUS AUREUS AND MR SA SCREEN, PCR, NASALon 05-29-2025 S. aureus and MRSA panel JAMESON+probe (Nose) Not detected Normal Not Detected [facility] Comment on above: Order Comment: Speci men Type: SWABOrdering Facility: [facility] Address: [address] [place] [address] Performed By: #### S APCR ####[facility] LABCLIA [id number] [place] [address] [place] Sodium ?Tm Ur-sCncon 025 Sodium Unsp time (U) [Moles/Vol] <20 Normal 14-216 [facility] Comment on above: Order Comment: Speci men Type: URINE SPECIMENOrdering Facility: [facility] Address: [address] [place] [address] Performed By: #### 3 5678-2 ####[facility] LABCLIA [id number] [place] [address] [place] Sodium SerPl-sCncon 05-29- 25 Sodium [Moles/Vol] 124 mmol/L Low 136-144 [facility] Comment on above: Order Comment: Speci men Type: BLOOD SPECIMENOrdering Facility: [facility] Address: [address] [place] [address] Performed By: #### 2 951-2 ####[facility] LABORATORYCLIA [id number] [place] [address] [place] Sodium [Moles/Vol] 121 mmol/L Low 136-144 [facility] Comment on above: Order Comment: Speci men Type: BLOOD SPECIMENOrdering Facility: [facility] Address: [address] [place] [address] Performed By: #### 2 951-2 ####[facility] LABORATORYCLIA [id number] [place] [address] [place] TSH SerPl-aCncon 05-29-2025 TSH Qn 0.975 m[IU]/L Normal 0.270-4.20 0 [facility] Comment on above: Order Comment: Speci men Type: BLOOD SPECIMENOrdering Facility: [facility] Address: [address] [place] [address] Performed By: #### 1 9123-9, 3084-1, 89740-9, 2777-1, 3016-3, 49192-2 ####[facility] LABORATORYCLIA [id number] [place] [address] [place] US ABD RIGHT UPPER QUADRANTo n 05-29-2025 US ABD RIGHT UPPER QUADRANT Normal [facility] US ANKLE BRACHIAL INDICESon 05-29-2025 US ANKLE BRACHIAL INDICES Normal [facility] Urate SerPl-mCncon Urate [Mass/Vol] 2.4 mg/dL Low 2.5-6.6 [facility] Comment on above: Order Comment: Speci men Type: BLOOD SPECIMENOrdering Facility: [facility] Address: [address] [place] [address] Performed By: #### 1 9123-9, 3084-1, 35042-2, 2777-1, 3016-3, 59132-3 ####[facility] LABORATORYCLIA [id number] [place] [address] [place] VITAMIN B6/PYRIDOXINon 05-29 VITAMIN B6 6.4 nmol/L Low 20.0-125.0 [facility] Comment on above: Order Comment: Speci men Type: BLOOD SPECIMENOrdering Facility: [facility] Address: [address] [place] [address] Result Comment: INTE RPRETIVE INFORMATION: Vitamin B6 (Pyridoxal 5-Phosphate)Pyridoxal 5'-phosphate measured in a specimen collected followingan 8-hour or overnight fast accurately indicates vitamin E7tapugjnsirj status. Non-fasting specimen concentration reflectsrecent vitamin intake.This test was developed and its performance characteristicsdetermined by [facility]. It has not been cleared orapproved by the [place] Food and Drug Administration. This test wasperformed in a CLIA certified laboratory and is intended forclinical purposes.Performed By: [facility] [place], [place] [address]Jphjyyfmrf Director: Hugo Dsouza MD, PhDCLIA Number: [id number] Performed By: #### V ITB6 ####[facility] HOSPITALIA [id number] [place] [address] Zinc SerPl-ncon 05-29-2025 Zinc [Mass/Vol] 33 ug/dL Low 60-120 [facility] Comment on above: Order Comment: Speci men Type: BLOOD SPECIMENOrdering Facility: [facility] Address: [address] [place] [address] Result Comment: This test was developed, and its performance characteristics determined by the [facility] Department of Pathology and Laboratory Medicine. It has not been cleared or approved by the FDA. The [facility] Department of Pathology and Laboratory Medicine is regulated under CLIA as qualified to perform high-complexity testing. This test is used for clinical purposes. It should not be regarded as investigational or for research. Performed By: #### 5 763-8, COPPER ####[facility] LABCLIA [id number] [place] [address] [place] CBC W Auto Differential pane l (Bld)on 05-28-2025 Basophils (Bld) [#/Vol] 10*3/uL Normal <0.11 [facility] Comment on above: Order Comment: Speci men Type: BLOOD SPECIMENOrdering Facility: [facility] Address: [address] [place] [address] Performed By: #### 5 7021-8 ####[facility] LABORATORYCLIA [id number] [place] [address] [place] Basophils/100 WBC (Bld) 0.3 % Normal [facility] Comment on above: Order Comment: Speci men Type: BLOOD SPECIMENOrdering Facility: [facility] Address: [address] [place] [address] Performed By: #### 5 7021-8 ####[facility] LABORATORYCLIA [id number] [address] [place] Differential cell count method Nom (Bld) Auto Normal [facility] Comment on above: Order Comment: Speci men Type: BLOOD SPECIMENOrdering Facility: [facility] Address: [address] [place] [address] Performed By: #### 5 7021-8 ####[facility] LABORATORYCLIA [id number] [place] [address] [place] Eosinophils (Bld) [#/Vol] 10*3/uL Normal <0.46 [facility] Comment on above: Order Comment: Speci men Type: BLOOD SPECIMENOrdering Facility: [facility] Address: [address] [place] [address] Performed By: #### 5 7021-8 ####[facility] LABORATORYCLIA [id number] [place] [address] [place] Eosinophils/100 WBC (Bld) 0.1 % Normal [facility] Comment on above: Order Comment: Speci men Type: BLOOD SPECIMENOrdering Facility: [facility] Address: [address] [place] [address] Performed By: #### 5 7021-8 ####[facility] LABORATORYCLIA [id number] [address] [place] Erythrocyte distribution width (RBC) [Ratio] 15.3 % High 11.5-15.0 [facility] Comment on above: Order Comment: Speci men Type: BLOOD SPECIMENOrdering Facility: [facility] Address: [address] [place] [address] Performed By: #### 5 7021-8 ####[facility] LABORATORYCLIA [id number] [address] [place] Hematocrit (Bld) [Volume fraction] 28.8 % Low 36.0-46.0 [facility] Comment on above: Order Comment: Speci men Type: BLOOD SPECIMENOrdering Facility: [facility] Address: [address] [place] [address] Performed By: #### 5 7021-8 ####[facility]ML[facility] LABORATORYCLIA [id number] [place] [address] [place] Hemoglobin (Bld) [Mass/Vol] 10.8 g/dL Low 11.5-15.5 [facility] Comment on above: Order Comment: Speci men Type: BLOOD SPECIMENOrdering Facility: [facility] Address: [address] [place] [address] Performed By: #### 5 7021-8 ####M[facility] LABORATORYCLIA [id number] [place] [address] [place] Immature granulocytes (Bld) [#/Vol] 0.04 10*3/uL Normal <0.10 [facility] Comment on above: Order Comment: Speci men Type: BLOOD SPECIMENOrdering Facility: [facility] Address: [address] [place] [address] Performed By: #### 5 7021-8 ####M[facility] LABORATORYCLIA [id number] [place] [address] [place] Immature granulocytes/100 WBC (Bld) 0.5 % Normal [facility] Comment on above: Order Comment: Speci men Type: BLOOD SPECIMENOrdering Facility: [facility] Address: [address] [place] [address] Performed By: #### 5 7021-8 ####[facility] LABORATORYCLIA [id number] [place] [address] [place] Lymphocytes (Bld) [#/Vol] 0.58 10*3/uL Low 1.00-4.00 [facility] Comment on above: Order Comment: Speci men Type: BLOOD SPECIMENOrdering Facility: [facility] Address: [address] [place] [address] Performed By: #### 5 7021-8 ####[facility] LABORATORYCLIA [id number] [place] [address] [facility] [place] Lymphocytes/100 WBC (Bld) 7.4 % Normal [facility] Comment on above: Order Comment: Speci men Type: BLOOD SPECIMENOrdering Facility: [facility] Address: [address] [place] [address] Performed By: #### 5 7021-8 ####[facility] LABORATORYCLIA [id number] [address] MCH (RBC) [Entitic mass] 38.7 pg High 26.0-34.0 [facility] Comment on above: Order Comment: Speci men Type: BLOOD SPECIMENOrdering Facility: [facility] Address: [address] [place] [address] Performed By: #### 5 7021-8 ####[facility] LABORATORYCLIA [id number] [address] [place] MCHC (RBC) [Mass/Vol] 37.5 g/dL High 30.5-36.0 [facility] Comment on above: Order Comment: Speci men Type: BLOOD SPECIMENOrdering Facility: [facility] Address: [address] [place] [address] Performed By: #### 5 7021-8 ####[facility] LABORATORYCLIA [id number] [address] MCV (RBC) [Entitic vol] 103.2 fL High 80.0-100.0 [facility] Comment on above: Order Comment: Speci men Type: BLOOD SPECIMENOrdering Facility: [facility] Address: [address] [place] [address] Performed By: #### 5 7021-8 ####[facility] LABORATORYCLIA [id number] [address] Monocytes (Bld) [#/Vol] 0.51 10*3/uL Normal <0.87 [facility] Comment on above: Order Comment: Speci men Type: BLOOD SPECIMENOrdering Facility: [facility] Address: [address] [place] [address] Performed By: #### 5 7021-8 ####M[facility] LABORATORYCLIA [id number] [address] Monocytes/100 WBC (Bld) 6.5 % Normal [facility] Comment on above: Order Comment: Speci men Type: BLOOD SPECIMENOrdering Facility: [facility] Address: [address] [place] [address] Performed By: #### 5 7021-8 ####M[facility] LABORATORYCLIA [id number] [place] [address] [place] Neutrophils (Bld) [#/Vol] 6.72 10*3/uL Normal 1.45-7.50 [facility] Comment on above: Order Comment: Speci men Type: BLOOD SPECIMENOrdering Facility: [facility] Address: [address] [place] [address] Performed By: #### 5 7021-8 ####M[facility]IN LABORATORYCLIA [id number] [address] [place] Neutrophils/100 WBC (Bld) 85.2 % Normal [facility] Comment on above: Order Comment: Speci men Type: BLOOD SPECIMENOrdering Facility: [facility] Address: [address] [place] [address] Performed By: #### 5 7021-8 ####M[facility]IN LABORATORYCLIA [id number] [place] [address] [place] Nucleated RBC (Bld) [#/Vol] 10*3/uL Normal <0.01 [facility] Comment on above: Order Comment: Speci men Type: BLOOD SPECIMENOrdering Facility: [facility] Address: [address] [place] [address] Performed By: #### 5 7021-8 ####MCLAIN LABORATORYCLIA [id number] [address] [place] Nucleated RBC/100 WBC (Bld) [Ratio] 0.0 /100 WBC Normal [facility] Comment on above: Order Comment: Speci men Type: BLOOD SPECIMENOrdering Facility: [facility] Address: [address] [place] [address] Performed By: #### 5 7021-8 ####M[facility]IN LABORATORYCLIA [id number] [place] [address] [place] Platelet mean volume (Bld) [Entitic vol] 10.2 fL Normal 9.0-12.7 [facility] Comment on above: Order Comment: Speci men Type: BLOOD SPECIMENOrdering Facility: [facility] Address: [address] [place] [address] Performed By: #### 5 7021-8 ####MCLAIN LABORATORYCLIA [id number] [place] [address] [place] Platelets (Bld) [#/Vol] 134 10*3/uL Low 150-400 [facility] Comment on above: Order Comment: Speci men Type: BLOOD SPECIMENOrdering Facility: [facility] Address: [address] [place] [address] Performed By: #### 5 7021-8 ####MCLAIN LABORATORYCLIA [id number] [place] [address] [place] RBC (Bld) [#/Vol] 2.79 10*6/uL Low 3.90-5.20 [facility] Comment on above: Order Comment: Speci men Type: BLOOD SPECIMENOrdering Facility: [facility] Address: [address] [place] [address] Performed By: #### 5 7021-8 ####MCLAIN LABORATORYCLIA [id number] [place] [address] [place] WBC (Bld) [#/Vol] 7.88 10*3/uL Normal 3.70-11.00 [facility] Comment on above: Order Comment: Speci men Type: BLOOD SPECIMENOrdering Facility: [facility] Address: [address] [place] [address] Performed By: #### 5 7021-8 ####MCLAIN LABORATORYCLIA [id number] [address] [place] CRP SerPl-mCncon 05-28-2025 CRP [Mass/Vol] 9.5 mg/dL High <0.9 [facility] Comment on above: Order Comment: Speci men Type: BLOOD SPECIMENOrdering Facility: [facility] Address: [address] [place] [address] Performed By: #### 1 988-5, 84253-9, TSH, 2276-4, 2951-2 ####MCLAIN LABORATORYCLIA [id number] [address] Comprehensive metabolic 2000 panelon 05-28-2025 Albumin [Mass/Vol] 3.1 g/dL Low 3.9-4.9 [facility] Comment on above: Order Comment: Speci men Type: BLOOD SPECIMENOrdering Facility: [facility] Address: [address] [place] [address] Performed By: #### 2 4323-8 ####MCLAIN LABORATORYCLIA [id number] [address] [place] ALP [Catalytic activity/Vol] 285 U/L High 34-123 [facility] Comment on above: Order Comment: Speci men Type: BLOOD SPECIMENOrdering Facility: [facility] Address: [address] [place] [address] Performed By: #### 2 4323-8 ####MCLAIN LABORATORYCLIA [id number] [address] ALT [Catalytic activity/Vol] 18 U/L Normal 7-38 [facility] Comment on above: Order Comment: Speci men Type: BLOOD SPECIMENOrdering Facility: [facility] Address: [address] [place] [address] Performed By: #### 2 4323-8 ####MCLAIN LABORATORYCLIA [id number] [address] Anion gap [Moles/Vol] 14 mmol/L Normal 8-15 [facility] Comment on above: Order Comment: Speci men Type: BLOOD SPECIMENOrdering Facility: [facility] Address: [address] [place] [address] Performed By: #### 2 4323-8 ####MCLAIN LABORATORYCLIA [id number] [address] AST [Catalytic activity/Vol] Normal [facility] Comment on above: Order Comment: Speci men Type: BLOOD SPECIMENOrdering Facility: [facility] Address: [address] [place] [address] Result Comment: Unab le to assay due to interference from hemolysis. Suggest reorder as clinically indicated. Performed By: #### 2 4323-8 ####MCLAIN LABORATORYCLIA [id number] [place] [address] [place] Bilirubin [Mass/Vol] 6.9 mg/dL High 0.2-1.3 [facility] Comment on above: Order Comment: Speci men Type: BLOOD SPECIMENOrdering Facility: [facility] Address: [address] [place] [address] Performed By: #### 2 4323-8 ####MCLAIN LABORATORYCLIA [id number] [place] [address] [place] Calcium [Mass/Vol] 8.7 mg/dL Normal 8.5-10.2 [facility] Comment on above: Order Comment: Speci men Type: BLOOD SPECIMENOrdering Facility: [facility] Address: [address] [place] [address] Performed By: #### 2 4323-8 ####MCLAIN LABORATORYCLIA [id number] [place] [address] [place] Chloride [Moles/Vol] 82 mmol/L Low 98-107 [facility] Comment on above: Order Comment: Speci men Type: BLOOD SPECIMENOrdering Facility: [facility] Address: [address] [place] [address] Performed By: #### 2 4323-8 ####MCLAIN LABORATORYCLIA [id number] [place] [address] [place] CO2 [Moles/Vol] 27 mmol/L Normal 22-30 [facility] Comment on above: Order Comment: Speci men Type: BLOOD SPECIMENOrdering Facility: [facility] Address: [address] [place] [address] Performed By: #### 2 4323-8 ####MCLAIN LABORATORYCLIA [id number] [place] [address] [place] Creatinine [Mass/Vol] 0.64 mg/dL Normal 0.58-0.96 [facility] Comment on above: Order Comment: Speci men Type: BLOOD SPECIMENOrdering Facility: [facility] Address: [address] [place] [address] Performed By: #### 2 4323-8 ####MCLAIN LABORATORYCLIA [id number] [place] [address] [place] eGFRcr SerPlBld CKD-EPI 2020 93 mL/min/1.73m??? Normal >=60 [facility] Comment on above: Order Comment: Steve lemons Type: BLOOD SPECIMENOrdering Facility: [facility] Address: [address] [place] [address] Result Comment: Kaylyn mated Glomerular Filtration Rate (eGFR) is calculated using the 2020 CKD-EPI creatinine equation. This equation utilizes serum creatinine, sex, and age as parameters. The creatinine assay has traceable calibration to isotope dilution-mass spectrometry. Refer to KDIGO guidelines for clinical interpretation. In patients with unstable renal function, e.g. those with acute kidney injury, the eGFR may not accurately reflect actual GFR. Performed By: #### 2 4323-8 ####[facility] LABORATORYCLIA [id number] [place] [address] [place] Glucose [Mass/Vol] 105 mg/dL High 74-99 [facility] Comment on above: Order Comment: Steve lemons Type: BLOOD SPECIMENOrdering Facility: [facility] Address: [address] [place] [address] Result Comment: The [place] [employer] (ADA) provides guidance for cutoff values for fasting glucose and random glucose. The ADA defines fasting as no caloric intake for at least 8 hours. Fasting plasma glucose results between 100 to 125 mg/dL indicate increased risk for diabetes (prediabetes).Fasting plasma glucose results greater than or equal to 126 mg/dL meet the criteria for diagnosis of diabetes. In the absence of unequivocal hyperglycemia, results should be confirmed by repeat testing. In a patient with classic symptoms of hyperglycemia or hyperglycemic crisis, random plasma glucose results greater than or equal to 200 mg/dL meet the criteria for diagnosis of diabetes.Reference: Standards of Medical Care in Diabetes 2016, [place] [employer]. Diabetes Care. 2016.39(Suppl 1). Performed By: #### 2 4323-8 ####GL[facility]ST[facility] LABORATORYCLIA [id number] [place] [address] [place] Potassium [Moles/Vol] 3.2 mmol/L Low 3.7-5.1 [facility] Comment on above: Order Comment: Speci men Type: BLOOD SPECIMENOrdering Facility: [facility] Address: [address] [place] [address] Performed By: #### 2 4323-8 ####MCLAIN LABORATORYCLIA [id number] [address] Protein [Mass/Vol] 6.3 g/dL Normal 6.3-8.0 [facility] Comment on above: Order Comment: Speci men Type: BLOOD SPECIMENOrdering Facility: [facility] Address: [address] [place] [address] Performed By: #### 2 4323-8 ####MCLAIN LABORATORYCLIA [id number] [place] [address] [place] Sodium [Moles/Vol] 123 mmol/L Low 136-144 [facility] Comment on above: Order Comment: Speci men Type: BLOOD SPECIMENOrdering Facility: [facility] Address: [address] [place] [address] Performed By: #### 2 4323-8 ####MCLAIN LABORATORYCLIA [id number] [address] [place] Urea nitrogen [Mass/Vol] 9 mg/dL Normal 7-21 [facility] Comment on above: Order Comment: Speci men Type: BLOOD SPECIMENOrdering Facility: [facility] Address: [address] [place] [address] Performed By: #### 2 4323-8 ####MCLAIN LABORATORYCLIA [id number] [address] [place] ED NOTEon 05-28-2025 ED NOTE HNO ID: [id number] Author: NAUN PARKER, RN Service: Nursing Author Type: Registered Nurse Type: ED Notes Filed: 05/28/2025 17:49 Note Text: Second call to 2 south. [facility] ED NOTE HNO ID: [id number] Author: NAUN PARKER, RN Service: Nursing Author Type: Registered Nurse Type: ED Notes Filed: 05/28/2025 17:32 Note Text: Heads up to 2 South at 1722 [facility] ED PROV NOTEon 05-28-2025 ED PROV NOTE Normal [facility] ESR Westergren method (Bld) [Velocity]on 05-28-2025 ESR (Bld) [Velocity] 37 mm/h High 0-20 [facility] Comment on above: Order Comment: Speci men Type: BLOOD SPECIMENOrdering Facility: [facility] Address: [address] [place] [address] Performed By: #### 4 537-7 ####[facility] LABCLIA [id number] [place] [address] [place] Ferritin SerPl-mCncon 2024 Ferritin [Mass/Vol] 612.8 ng/mL High 14.7-205.1 [facility] Comment on above: Order Comment: Speci men Type: BLOOD SPECIMENOrdering Facility: [facility] Address: [address] [place] [address] Performed By: #### 1 988-5, 45735-2, TSH, 2276-4, 2951-2 ####[facility]ST[facility] LABORATORYCLIA [id number] [address] [place] HAV IgM Ser Qlon 05-28-2025 HAV IgM Ql (S) Negative Normal Negative [facility] Comment on above: Order Comment: Speci men Type: BLOOD SPECIMENOrdering Facility: [facility] Address: [address] [place] [address] Result Comment: No e vidence of recent infection with Hepatitis A virus. Performed By: #### 3 1204-1, 55070-7, 5195-3 ####[facility] LABCLIA [id number] [place] [address] [place] HBV core IgM Ser Qlon 2024 HBV core IgM Ql (S) Negative Normal Negative [facility] Comment on above: Order Comment: Speci men Type: BLOOD SPECIMENOrdering Facility: [facility] Address: [address] [place] [address] Result Comment: No e vidence of recent infection with Hepatitis B virus. Should recent infection be suspected, repeat testing may be considered 3-4 weeks after this draw. Performed By: #### 3 1204-1, 14299-1, 5195-3 ####[facility] LABCLIA [id number] [address] [address] [place] HBV surface Ag Ser Qlon 05-06 HBV surface Ag Ql (S) Negative Normal Negative [facility] Comment on above: Order Comment: Speci men Type: BLOOD SPECIMENOrdering Facility: [facility] Address: [address] [place] [address] Performed By: #### 3 1204-1, 58620-6, 5195-3 ####[facility] LABIA [id number] [place] [id number] [place] HCV Ab Ser Qlon 05-28-2025 HCV Ab Ql (S) Negative Normal Negative [facility] Comment on above: Order Comment: Speci men Type: BLOOD SPECIMENOrdering Facility: [facility] Address: [address] [place] [address] Result Comment: The result suggests no evidence of infection with Hepatitis C virus. Should recent infection be suspected, repeat testing may be considered 4-6 weeks after this draw. Performed By: #### 1 6128-1 ####[facility] LABCLIA [id number] [place] [id number] [place] HISTORY PHYSICALon HISTORY PHYSICAL Normal [facility] Hepatic function 2000 panelo n 05-28-2025 Albumin [Mass/Vol] 2.8 g/dL Low 3.9-4.9 [facility] Comment on above: Order Comment: Speci men Type: BLOOD SPECIMENOrdering Facility: [facility] Address: [address] [place] [address] Performed By: #### 2 4325-3 ####[facility]ST[facility] LABORATORYCLIA [id number] [place] [address] [place] ALP [Catalytic activity/Vol] 246 U/L High 34-123 [facility] Comment on above: Order Comment: Speci men Type: BLOOD SPECIMENOrdering Facility: [facility] Address: [address] [place] [address] Performed By: #### 2 4325-3 ####MCLAIN LABORATORYCLIA [id number] [address] ALT [Catalytic activity/Vol] 15 U/L Normal 7-38 [facility] Comment on above: Order Comment: Speci men Type: BLOOD SPECIMENOrdering Facility: [facility] Address: [address] [place] [address] Performed By: #### 2 4325-3 ####M[facility] LABORATORYCLIA [id number] [address] AST [Catalytic activity/Vol] 53 U/L High 13-35 [facility] Comment on above: Order Comment: Speci men Type: BLOOD SPECIMENOrdering Facility: [facility] Address: [address] [place] [address] Performed By: #### 2 4325-3 ####MCLAIN LABORATORYCLIA [id number] [address] Bilirubin [Mass/Vol] 6.3 mg/dL High 0.2-1.3 [facility] Comment on above: Order Comment: Speci men Type: BLOOD SPECIMENOrdering Facility: [facility] Address: [address] [place] [address] Performed By: #### 2 4325-3 ####MCLAIN LABORATORYCLIA [id number] [address] Bilirubin.conjugated [Mass/Vol] 3.9 mg/dL High <0.3 [facility] Comment on above: Order Comment: Speci men Type: BLOOD SPECIMENOrdering Facility: [facility] Address: [address] [place] [address] Performed By: #### 2 4325-3 ####MCLAIN LABORATORYCLIA [id number] [address] Protein [Mass/Vol] 5.6 g/dL Low 6.3-8.0 [facility] Comment on above: Order Comment: Speci men Type: BLOOD SPECIMENOrdering Facility: [facility] Address: [address] [place], [place] [address] Performed By: #### 2 4325-3 ####MCLAIN LABORATORYCLIA [id number] [place] [id number] [facility] Iron and Iron binding capaci ty panelon 05-28-2025 Iron [Mass/Vol] 40 ug/dL Low 41-186 [facility] Comment on above: Order Comment: Speci men Type: BLOOD SPECIMENOrdering Facility: [facility] Address: [facility] [address] Performed By: #### 1 988-5, 08825-1, [facility], 6-4, 2951-2 ####MCLAIN LABORATORYCLIA [id number] [place] [id number] [place] Iron binding capacity [Mass/Vol] 128 ug/dL Low 232-386 [facility] Comment on above: Order Comment: Speci men Type: BLOOD SPECIMENOrdering Facility: [facility] Address: [facility] [address] Performed By: #### 1 988-5, 99133-1, [facility], 6-4, 2951-2 ####[facility] LABORATORYCLIA [id number] [address] Iron/TIBC [Molar ratio] 31.3 % Normal 15.0-57.0 [facility] Comment on above: Order Comment: Speci men Type: BLOOD SPECIMENOrdering Facility: [facility] Address: [facility] [address] Performed By: #### 1 988-5, 11613-4, [facility], 6-4, 2951-2 ####MCLAIN LABORATORYCLIA [id number] [place] [id number] [place] Lactate (Bld) [Moles/Vol]on 05-28-2025 Lactate [Moles/Vol] 2.4 mmol/L High 0.5-2.2 [facility] Comment on above: Order Comment: Speci men Type: BLOOD SPECIMENOrdering Facility: [facility] Address: [facility] [address] Performed By: #### 3 2693-4 ####[facility] LABORATORYCLIA [id number] [place] [id number] [place] Osmolality SerPlon Osmolality [Osmolality] 259 mosm/kg Low 275-300 [facility] Comment on above: Order Comment: Specdelia lemons Type: BLOOD SPECIMENOrdering Facility: [facility] Address: [address] [place] [address] Performed By: #### 2 692-2 ####[facility] LABCLIA [id number] [place] [address] [place] PT panel Coag (PPP)on 2024 INR Coag (PPP) [Relative time] 1.3 {INR} Normal 0.9-1.3 [facility] Comment on above: Order Comment: Steve lemons Type: BLOOD SPECIMENOrdering Facility: [facility] Address: [address] [place] [address] Result Comment: Arlene min K Antagonist (VKA) Therapeutic Range: INR 2 to 3 (Target INR of 2.5)Note: For patients treated with VKA drugs, such as warfarin, the [place] [employer] 2012 Guideline recommends a therapeutic INR range of 2 to 3 (target INR of 2.5). This recommendation includes high-risk patients with antiphospholipid syndrome with previous arterial or venous thromboembolism, current-generation mechanical or bioprosthetic aortic heart valve replacement.Note: Patients with mechanical aortic valve replacement and additional risk factors for thromboembolic events (atrial fibrillation, previous thromboembolism, LV dysfunction, hypercoagulable conditions) or an older generation mechanical AVR (i.e., ball in-Cage) or any mechanical MVR should have a INR therapeutic range of 2.5 to 3.5 (target INR of 3).John GH, et al. Chest 2012, 141:7S-47SNishimura RA, et al. [facility] 2017, 70: 252-289 Performed By: #### 3 4528-0 ####[facility] LABORATORYCLIA [id number] [place] [id number] [place] PT Coag (PPP) [Time] 13.4 s High 9.7-13.0 [facility] Comment on above: Order Comment: Speci men Type: BLOOD SPECIMENOrdering Facility: [facility] Address: [address] [place] [address] Performed By: #### 3 4528-0 ####[facility] LABORATORYCLIA [id number] [address] [place] SEPSIS LACTATE W/ REFLEX (IN ITIAL)on 05-28-2025 Lactate [Moles/Vol] 2.2 mmol/L High 0.5-2.0 [facility] Comment on above: Order Comment: Speci men Type: BLOOD SPECIMENOrdering Facility: [facility] Address: [address] [place] [address] Performed By: #### S LACTR ####[facility]ML[facility] LABORATORYCLIA [id number] [address] SEPSIS LACTATE W/ REFLEX (SE COND)on 05-28-2025 Lactate [Moles/Vol] 1.5 mmol/L Normal 0.5-2.0 [facility] Comment on above: Order Comment: Speci men Type: BLOOD SPECIMENOrdering Facility: [facility] Address: [address] [place] [address] Performed By: #### S LACT2 ####M[facility] LABORATORYCLIA [id number] [address] [place] Sodium SerPl-sCncon 05-28-20 25 Sodium [Moles/Vol] 124 mmol/L Low 136-144 [facility] Comment on above: Order Comment: Speci men Type: BLOOD SPECIMENOrdering Facility: [facility] Address: [address] [place] [address] Performed By: #### 1 988-5, 17807-2, TSHRF, 2276-4, 2951-2 ####M[facility] LABORATORYCLIA [id number] [address] [place] TSH W/REFLEX FT4on 5 TSH Qn 1.160 m[IU]/L Normal 0.270-4.20 0 [facility] Comment on above: Order Comment: Speci men Type: BLOOD SPECIMENOrdering Facility: [facility] Address: [address] [place] [address] Performed By: #### 1 988-5, 71399-4, TSHRF, 2276-4, 2951-2 ####[facility] LABORATORYCLIA [id number] [place] [address] [place] Bacteria Wnd Culton 05-27-20 25 Bacteria identified Cx Nom (Wound) Abnormal [facility] Comment on above: Performed By: #### 6 462-6 ####[facility] LABCLIA [id number] [address] [place] Bacteria identified Cx Nom (Wound) ORGANISM ID: 1 Many Pseudomonas aeruginosa Refer to specimen collected on 05/27/2025 at 1557 [[id number]] ORGANISM ID: 3 Rare skin mikhail GRAM STAIN: Many Gram negative bacilli Rare Gram positive cocci Rare Polymorphonuclear leukocytes Abnormal [facility] Comment on above: Performed By: #### 6 462-6 ####[facility] LABCLIA [id number] [facility] [address] [place] CNOVon 05-27-2025 CNOV [facility] CNTHERAPYon 05-27-2025 CNTHERAPY Normal [facility]Non [facility] [facility] Anion gap in Serum or Plasma Ordered By: Solo Calderón on 05-21-2025 Anion gap [Moles/Vol] 13 mmol/L 5-15 [facility] BUN/creatinine ratioOrdered By: Solo Calderón on 05-21-2025 Urea nitrogen/Creatinine [Mass ratio] 12.2 mg/mg 10-20 [facility] Bilirubin, totalOrdered By: Solo Calderón on 05-21-2025 Bilirubin [Mass/Vol] 5.09 mg/dL High 0.00-1.30 [facility] Carbon dioxide, total [Moles /volume] in Central venous bloodOrdered By: Solo Calderón on 05-21-2025 CO2 [Moles/Vol] 28.3 mmol/L 21.0-32.0 [facility] Chloride assayOrdered By: Anirudh Calderón on 05-21-2025 Chloride [Moles/Vol] 83 mmol/L Low 98-108 [facility] Comprehensive Metabolic Prof ilon 05-21-2025 Albumin [Mass/Vol] 3.2 g/dL Low 3.4-4.8 [facility] Comment on above: Performed By: #### L 501.4405, L100.0100, L501.1105 #### [facility] [address] [place], [address] Albumin/Globulin [Mass ratio] 1.1 {ratio} Normal 0.9-2.4 [facility] Comment on above: Performed By: #### L 501.4405, L100.0100, L501.1105 #### [facility] [address] [place], [address] ALK PHOS 284 U/L High 35-104 [facility] Comment on above: Performed By: #### L 501.4405, L100.0100, L501.1105 #### [facility] [address] [place], [address] ALT [Catalytic activity/Vol] 18 U/L Normal <=34 [facility] Comment on above: Performed By: #### L 501.4405, L100.0100, L501.1105 #### [facility] [address] [place], [address] AST [Catalytic activity/Vol] 62 U/L High <=31 [facility] Comment on above: Performed By: #### L 501.4405, L100.0100, L501.1105 #### [facility] [address] [place], [address] Bilirubin [Mass/Vol] 5.09 mg/dL High 0.00-1.30 [facility] Comment on above: Performed By: #### L 501.4405, L100.0100, L501.1105 #### [facility] [address] [place], [address] BUN/CRE 12.2 RATIO Normal 10-20 [facility] Comment on above: Performed By: #### L 501.4405, L100.0100, L501.1105 #### [facility] [address] [place], [address] Calcium [Mass/Vol] 9.4 mg/dL Normal 7.6-11.0 [facility] Comment on above: Performed By: #### L 501.4405, L100.0100, L501.1105 #### [facility] [address] [place], [address] Chloride [Moles/Vol] 83 mmol/L Low 98-108 [facility] Comment on above: Performed By: #### L 501.4405, L100.0100, L501.1105 #### [facility] [address] [place], [address] CO2 [Moles/Vol] 28.3 mmol/L Normal 21.0-32.0 [facility] Comment on above: Performed By: #### L 501.4405, L100.0100, L501.1105 #### [facility] [address] [place], [address] Creatinine [Mass/Vol] 0.72 mg/dL Normal 0.70-1.20 [facility] Comment on above: Result Comment: Icte norris present, Results may be affected. Performed By: #### L 501.4405, L100.0100, L501.1105 #### [facility] [address] [place], [address] GAP 13 Normal 5-15 [facility] Comment on above: Performed By: #### L 501.4405, L100.0100, L501.1105 #### [facility] [address] [place], [address] GFR/1.73 sq M.predicted among non-blacks MDRD (S/P/Bld) [Vol rate/Area] 88 mL/min/{1.73_m2} Normal >60 [facility] Comment on above: Result Comment: mL/m in/1.73m2 CKD-EPI Creatinine Equation (2020) Performed By: #### L 501.4405, L100.0100, L501.1105 #### [facility] [address] [place], [address] Globulin (S) [Mass/Vol] 2.9 g/dL Normal 2.2-4.2 [facility] Comment on above: Performed By: #### L 501.4405, L100.0100, L501.1105 #### [facility] [address] [place], [address] Glucose [Mass/Vol] 117 mg/dL High 70-99 [facility] Comment on above: Performed By: #### L 501.4405, L100.0100, L501.1105 #### [facility] [address] [place], [address] Potassium [Moles/Vol] 3.7 mmol/L Normal 3.3-5.1 [facility] Comment on above: Performed By: #### L 501.4405, L100.0100, L501.1105 #### [facility] [address] [place], [address] Sodium [Moles/Vol] 124 mmol/L Low 133-145 [facility] Comment on above: Performed By: #### L 501.4405, L100.0100, L501.1105 #### [facility] [address] [place], [address] T PROT 6.1 g/dL Normal 5.9-8.4 [facility] Comment on above: Performed By: #### L 501.4405, L100.0100, L501.1105 #### [facility] [address] [place] [place], [address] Urea nitrogen [Mass/Vol] 9 mg/dL Normal 4-19 [facility] Comment on above: Performed By: #### L 501.4405, L100.0100, L501.1105 #### [facility] [address] [place] [place], [address] Glomerular filtration rate ( GFR) estimation/1.73 sq m using serum, plasma, or whole bOrdered By: Solo Calderón on 05-21-2025 GFR/1.73 sq M.predicted among non-blacks MDRD (S/P/Bld) [Vol rate/Area] 88 mL/min/{1.73_m2} >60 [facility] Comment on above: mL/min/1.73m2 CKD-EP I Creatinine Equation (2020) Internal Medicine Office Vis iton 05-21-2025 Internal Medicine Office Visit [facility] [address] [address] [place] [address] OFFICE VISIT Date of Service: 05/21/25 MR#: [id number] Acct: [id number] Name: MARY ALICE GA Rep #: [id number] : 1950 Provider: JIMMY Mohamud Age/Sex: 74/F Location: [facility] Status: Signed with Addenda ADDENDUM by Cleopatra Steen on 05/21/25 at 1640 Office Procedure Documentation entered by Cleopatra Steen 05/21/25 16:40: Injections Is this a patient provided medication?: No Office Meds Prolia 60 mg/mL subcutaneous syringe Performing Provider: Khanh Rodriguez MD Performing Location: [facility] Administered by: Cleopatra Steen on 05/21/25 16:38 Dose Route Admin Location Dispensed Lot Number Expiration Date Package NDC NDC Administration Professional 60 mg subcut erickson 1 mL [id number] 11/02/27 16954-188-30 [id number] AMGEN Comments: patient tolerated Prolia well, sat for 5-10 min and no reaction injection given in erickson Date cc: * Signed Intake Vital Signs 05/08/25 13:08 05/21/25 08:10 Height 5 ft 1 in 5 ft 4 in Weight: 133 lb 6 oz 135 lb BMI 25.2 23.1 BP 104/64 Blood Pressure Location Rt brachial Position Sitting Respiration 16 Pulse 75 Pulse Source Monitor Temp 97.6 F L Temp Source Temporal Pulse Oximetry (%) 100 Oxygen Delivery Method room air Intake Visit Reasons: Lab. Prolia-$0 Chief Complaint: discuss prolia Media Producer Required: No Accompanied by: Self Is patient in pain?: No Allergies No Known Allergies Allergy (Verified 05/21/25 08:05) Medications ???Medication ???Instructions ???Recorded ???Confirmed ???Type compress.stocking,knee,reg ,lrg #2 ea 05/09/23 05/21/25 Rx acetaminophen 500 mg capsule 500 mg PO Q6H PRN pain 06/08/23 History calcium 600 mg (as 1 tab PO BID 12/27/23 05/21/25 His tory carbonate)-vitamin D3 5 mcg (200 unit) tablet (Calcium 600 + D(3)) anastrozole 1 mg tablet 1 mg PO DAILY #90 tabs 04/22/24 Rx furosemide 40 mg tablet 40 mg PO BID DIURETIC #180 tabs 05/21/25 Rx pantoprazole 40 mg tablet,delayed 40 mg PO DAILY GERD 3 months #90 11/27/24 05/21/25 Rx release tabs spironolactone 50 mg tablet 50 mg PO BID #180 tabs 11/27/24 Rx potassium chloride 20 mEq 20 meq PO BID SUPPLEMENT #90 tabs 01/13/25 05/21/25 Rx tablet,extended release(part/cryst) nadolol 20 mg tablet 20 mg PO DAILY BP #90 tabs 03/05/2 5 05/21/25 Rx tramadol 50 mg tablet 50 mg PO TID PRN pain #28 tabs 05/21/25 Rx Have you fallen in the past year?: No Nurse's Note: discuss prolia injection blood work? feeling fatigued leg wound infected will be IV antibiotics PFSH Medical History Screening for breast cancer Thrombocytopenia Ascites CHF (congestive heart failure) Dyspnea Skin cancer Encounter for education Wears glasses Cancer Alcohol use Open wound High cholesterol Pulmonary embolism Back pain Injury of back History of ulceration Non-smoker History of edema Breast cancer Abnormal mammogram of left breast Left breast lump Squamous cell skin cancer Umbilical hernia Preoperative evaluation to rule out surgical contraindication Hypokalemia Cellulitis of right leg Screening for thyroid disorder History of skin cancer Ulcer of right leg Hx of staphylococcal infection Hypertension Dermatitis Osteoporosis Hyponatremia Elevated liver enzymes Post-menopausal Varicose veins of both lower extremities Hypotension Age-related physical debility Left hip pain GERD (gastroesophageal reflux disease) Bleeding ulcer Broken hip Carotid stenosis, right Vertigo Arthritis Cirrhosis Surgical History History of kyphoplasty History of left mastectomy Hx of tonsillectomy Status post Mohs surgery History of left hip replacement History of knee replacement History of hysterectomy Family History Mother Alzheimer disease Father Heart disease Diabetes Social History housing: house Smoking Status: Never smoker alcohol intake: former substance use type: does not use HPI HPI Chief Complaint: discuss prolia Details: MARY ALICE GA, is a 74 F who presents to the office today to get her Prolia shot. Patient states that she also is here to have labs done as the lab was closed the last time she was here. She states that she continues to jacques leg wound. She states that it heals and looks good and then it started to worsen again. It seems to be back and forth. She states that they did do a culture a (more content not included)... Normal [facility] - Chemistry and C hemistry - challengeOrdered By: Solo Calderón on 05-21-2025 AST [Catalytic activity/Vol] 62 U/L High <32 [facility] Natriuretic peptide.B prohor lynsey N-Terminal [Mass/volume] in Serum or PlasmaOrdered By: Solo Calderón on 05-21-2025 Natriuretic peptide.B prohormone N-Terminal [Mass/Vol] 613 pg/mL <900 [facility] Comment on above: Heart Failure Unlike ly: < 300 pg/mLHeart Failure Likely< 50 Years: > 450 pg/mL50-75 Years: > 900 pg/mL>75 Years: > 1800 pg/mL Potassium measurement (mass/ volume)Ordered By: Solo Calderón on 05-21-2025 Potassium (Unsp spec) [Mass/Vol] 3.7 mmol/L 3.3-5.1 [facility] Pro- Brain NATRIURETIC PEPTI Caleb 05-21-2025 Natriuretic peptide B (Bld) [Mass/Vol] 613 pg/mL Normal <=900 [facility] Comment on above: Result Comment: Hear t Failure Unlikely: < 300 pg/mL Heart Failure Likely < 50 Years: > 450 pg/mL 50-75 Years: > 900 pg/mL >75 Years: > 1800 pg/mL Performed By: #### L 501.4405, L100.0100, L501.1105 #### [facility] [place], [address] Serum creatinine measurement (mass/volume)Ordered By: Solo Calderón on 05-21-2025 Creatinine [Mass/Vol] 0.72 mg/dL 0.70-1.20 [facility] Comment on above: Icterus present, Res ults may be affected. Serum globulin measurementOr dered By: Solo Calderón on 05-21-2025 Globulin (S) [Mass/Vol] 2.9 g/dL 2.2-4.2 [facility] Serum glucose measurement (m ass/volume)Ordered By: Solo Calderón on 05-21-2025 Glucose [Mass/Vol] 117 mg/dL High 70-99 [facility] Serum or plasma alanine gibbs otransferase (ALT) measurementOrdered By: Solo Calderón on 05-21-2025 ALT [Catalytic activity/Vol] 18 U/L <35 [facility] Serum or plasma albumin seth urement (mass/volume)Ordered By: Solo Calderón on 05-21-2025 Albumin [Mass/Vol] 3.2 g/dL Low 3.4-4.8 [facility] Serum or plasma albumin/glob ulin mass ratioOrdered By: Solo Calderón on 05-21-2025 Albumin/Globulin [Mass ratio] 1.1 {ratio} 0.9-2.4 [facility] Serum or plasma alkaline miguel sphatase measurementOrdered By: Solo Calderón on 05-21-2025 ALP [Catalytic activity/Vol] 284 U/L High 35-104 [facility] Serum or plasma calcium seth urement (mass/volume)Ordered By: Solo Calderón on 05-21-2025 Calcium [Mass/Vol] 9.4 mg/dL 7.6-11.0 [facility] Serum or plasma urea nitroge n measurement (mass/volume)Ordered By: Solo Calderón on 05-21-2025 Urea nitrogen [Mass/Vol] 9 mg/dL 4-19 [facility] Sodium levelOrdered By: Atul Calderón on 05-21-2025 Sodium [Moles/Vol] 124 mmol/L Low 133-145 [facility] TSH DL <= 0.005 mIU/L QnOrde red By: Solo Calderón on 05-21-2025 TSH Qn 1.730 uIU/mL 0.300-4.20 0 [facility] Thyroid Stim Hormone (TSH)on 05-21-2025 TSH 1.730 uIU/mL Normal 0.300-4.20 0 [facility] Comment on above: Performed By: #### L 501.4405, L100.0100, L501.1105 #### [facility] [address] [place], [address] Total proteinOrdered By: David Calderón on 05-21-2025 Protein [Mass/Vol] 6.1 g/dL 5.9-8.4 [facility] Bacteria Wnd Culton 05-20-20 25 Bacteria identified Cx Nom (Wound) Abnormal [facility] Comment on above: Performed By: #### 6 462-6 ####[facility] [id number] [address] [place] CNTHERAPYon 05-20-2025 CNTHERAPY Normal [facility] Magnetic resonance imaging r eportOrdered By: Naun Jenkins on 05-14-2025 Study report [facility] Imaging Services [address] [place], [place] [id number] Spine Lumbar (Routine) MR#: [id number] Acct: [id number] Name: MARY ALICE GA Rep #: [id number] : 1950 F 74 From: Anup Jenkins MD PCP: Dr. Khanh Rodriguez MD Status: R EG CLI Study:Spine Lumbar (Routine) Date of Exam: 05/13/25 Exam# [id number] Ordering Dr: Deejay Lopez PROCEDURE: SPINE LUMBAR (ROUTINE) 05/13/2025 REASON FOR EXAM: PAIN, STENOSIS, WORSENING WALKING TOLERANCE TECHNIQUE: Procedure Code: MRISPL Modality: MR Procedure: SPINE LUMBAR (ROUTINE) COMPARISON: Radiographs of the lumbar spines dated 05/08/2025 FINDINGS: Vertebrae: Compression deformities at T12 and L3 status post vertebral augmentation. Old compression deformity of L1 with no associated bone marrow edema. Remaining bone marrow signal is heterogeneous butotherwise without focal mass. There is no evidence to suggest an acute fracture. 5 lumbar-type vertebral bodies identified. Alignment: Lumbar lordosis preserved. There is no corine or retrolisthesis. Mild scoliosis present concave to the left apex at L1. There is slight kyphosis at the T11-T12 disc space level.. Conus Medullaris: Ends normally at T12-L1. The distal spinal cord is otherwise unremarkable. T12-L1: Mild disc disease. No central stenosis. Mild left foraminal encroachment more so than right. L1-2: Mild disc bulge. Facet arthropathy and ligamentum flavum hypertrophy. Moderate left foraminal encroachment without impingement. L2-3: Mild degenerative disc disease and disc desiccation with diffuse disc bulge. Facet arthropathy and ligamentum flavum hypertrophy. No significant central stenosis. Severe left foraminal encroachment. L3-4: Diffuse disc disease and disc bulge with facet arthropathy ligamentum flavum hypertrophy. No significant central stenosis. Severe left foraminal encroachment. L4-5: Diffuse disc desiccation and diffuse disc bulge. Severe facet arthropathyand ligamentum flavum hypertrophy with jcjp-nd-pwpbbuob central stenosis. Mild bilateral foraminal encroachment. L5-S1: Degenerative disc disease and diffuse bulge with bilateral foraminal encroachment zakfw-vstnylx-oxnb-left. Severe facet arthropathy tgzfm-zjgpgfu-jxvp-left. Sacrum: Visible SI joints and sacrum appear otherwise unremarkable. Paraspinal soft tissues are within normal limits. No lymphadenopathy or aneurysm seen. MRI/Spine Lumbar (Routine) IMPRESSION: Old compression fracture deformity of L1 with no bone marrow edema. Status post vertebral augmentation at T12 and L2. Scoliosis and slight kyphosis centered at T11-T12. There is left foraminal stenoses from T12-L1 through L3-4 with varying degrees of mass effect on the exiting nerve roots. There is moderate stenosis at L4-5 due to a combination of disc bulge and facet arthropathy. Severe right facet arthropathy at L5-S1 accounting for right foraminal encroachment with mass effect on the exiting right L5 nerve. Reading Location: [facility] CC: JIMMY Dawson; Dr. Khanh Rodriguez MD ~ Vault Clerk: Signed [facility] CNTHERAPYon 05-13-2025 CNTHERAPY Normal [facility] Spine Lumbar (Routine)on Spine Lumbar (Routine) [facility] Imaging Services [address] [place] [id number] Spine Lumbar (Routine) MR#: [id number] Acct: [id number] Name: MARY ALICE GA Rep #: [id number] : 1950 F 74 From: Naun cartagena MD PCP: Dr. Khanh Rodriguez MD Status: REG CLI Study: Spine Lumbar (Routine) Date of Exam: 05/13/25 Exam# [id number] Ordering Dr: Tracy Lopez PROCEDURE: SPINE LUMBAR (ROUTINE) 05/13/2025 REASON FOR EXAM: PAIN, STENOSIS, WORSENING WALKING TOLERANCE TECHNIQUE: Procedure Code: MRISPL Modality: MR Procedure: SPINE LUMBAR (ROUTINE) COMPARISON: Radiographs of the lumbar spines dated 05/08/2025 FINDINGS: Vertebrae: Compression deformities at T12 and L3 status post vertebral augmentation. Old compression deformity of L1 with no associated bone marrow edema. Remaining bone marrow signal is heterogeneous but otherwise without focal mass. There is no evidence to suggest an acute fracture. 5 lumbar-type vertebral bodies identified. Alignment: Lumbar lordosis preserved. There is no corine or retrolisthesis. Mild scoliosis present concave to the left apex at L1. There is slight kyphosis at the T11-T12 disc space level.. Conus Medullaris: Ends normally at T12-L1. The distal spinal cord is otherwise unremarkable. T12-L1: Mild disc disease. No central stenosis. Mild left foraminal encroachment more so than right. L1-2: Mild disc bulge. Facet arthropathy and ligamentum flavum hypertrophy. Moderate left foraminal encroachment without impingement. L2-3: Mild degenerative disc disease and disc desiccation with diffuse disc bulge. Facet arthropathy and ligamentum flavum hypertrophy. No significant central stenosis. Severe left foraminal encroachment. L3-4: Diffuse disc disease and disc bulge with facet arthropathy ligamentum flavum hypertrophy. No significant central stenosis. Severe left foraminal encroachment. L4-5: Diffuse disc desiccation and diffuse disc bulge. Severe facet arthropathy and ligamentum flavum hypertrophy with wfmm-br-nvfhmnmu central stenosis. Mild bilateral foraminal encroachment. L5-S1: Degenerative disc disease and diffuse bulge with bilateral foraminal encroachment gfzrq-fisxemv-dnth-left. Severe facet arthropathy vazgc-gjzvuxl-jatg-left. Sacrum: Visible SI joints and sacrum appear otherwise unremarkable. Paraspinal soft tissues are within normal limits. No lymphadenopathy or aneurysm seen. MRI/Spine Lumbar (Routine) IMPRESSION: Old compression fracture deformity of L1 with no bone marrow edema. Status post vertebral augmentation at T12 and L2. Scoliosis and slight kyphosis centered at T11-T12. There is left foraminal stenoses from T12-L1 through L3-4 with varying degrees of mass effect on the exiting nerve roots. There is moderate stenosis at L4-5 due to a combination of disc bulge and facet arthropathy. Severe right facet arthropathy at L5-S1 accounting for right foraminal encroachment with mass effect on the exiting right L5 nerve. Reading Location: [id number] CC: JIMMY Dawson; Dr. Khanh Rodriguez MD Vault Clerk: Signed Normal [facility] L/S Spine Min 4 Viewson L/S Spine Min 4 Views [facility] Imaging Services [address] [place] [address] L/S Spine Min 4 Views MR#: [id number] Acct: [id number] Name: MARY ALICE GA Rep #: [id number] : 1950 F 74 From: Reggie Lopez MD PCP: Dr. Khanh Rodriguez MD Status: DEP AMB Study: L/S Spine Min 4 Views Date of Exam: 05/08/25 Exam# [id number] Ordering Dr: Tracy Lopez PROCEDURE: L/S SPINE MIN 4 VIEWS 05/08/2025 REASON FOR EXAM: CHRONIC BACK PAIN TECHNIQUE: Procedure Code: RADSPLS Modality: DX Procedure: L/S SPINE MIN 4 VIEWS COMPARISON: May 15, 2024 FINDINGS: There is mild dextroconvex scoliosis of the lumbar spine. Vertebroplasty changes are noted at T12 and L2. There is mild compression deformity at L1 which is fairly similar compared with 05/15/2024. Sacroiliac joints are intact. There is a left hip arthroplasty and degenerative right hip joint space narrowing. RAD/L/S Spine Min 4 Views IMPRESSION: Surgical changes as above. Scoliosis and likely L1 compression, likely similar to the previous study. Reading Location: [facility] CC: JIMMY Dawson; Dr. Khanh Rodriguez MD Vault Clerk: Signed Normal [facility] Orthopedic Visit Reporton Orthopedic Visit Report [facility] [address] [place] [address] [address] [place] [id number] OFFICE VISIT Date of Service: 05/08/25 MR#: [id number] Acct: [id number] Name: MARY ALICE GA Rep #: [id number] : 1950 Provider: JIMMY Dawson Age/Sex: 74/F Location: [facility] Status: Signed Intake Vital Signs 04/25/25 13:01 05/07/25 10:36 05/08/25 13:08 Height 5 ft 1 in 5 ft 1 in 5 ft 1 in Weight: 133 lb 6 oz BMI 25.2 Intake Visit Reasons: LUMBAR SPINE Accompanied by: Self Is patient in pain?: Yes Pain scale (1-10): 7 Allergies No Known Allergies Allergy (Verified 05/08/25 13:11) Medications ???Medication ???Instructions ???Recorded ???Confirmed ???Type compress.stocking,knee,reg ,lrg #2 ea 05/09/23 05/08/25 Rx acetaminophen 500 mg capsule 500 mg PO Q6H PRN pain 06/08/23 History calcium 600 mg (as 1 tab PO BID 12/27/23 05/08/25 His tory carbonate)-vitamin D3 5 mcg (200 unit) tablet (Calcium 600 + D(3)) anastrozole 1 mg tablet 1 mg PO DAILY #90 tabs 04/22/24 Rx furosemide 40 mg tablet 40 mg PO BID DIURETIC #180 tabs 05/08/25 Rx pantoprazole 40 mg tablet,delayed 40 mg PO DAILY GERD 3 months #90 11/27/24 05/08/25 Rx release tabs spironolactone 50 mg tablet 50 mg PO BID #180 tabs 11/27/24 Rx potassium chloride 20 mEq 20 meq PO BID SUPPLEMENT #90 tabs 01/13/25 05/08/25 Rx tablet,extended release(part/cryst) nadolol 20 mg tablet 20 mg PO DAILY BP #90 tabs 03/05/ 5 05/08/25 Rx tramadol 50 mg tablet 50 mg PO TID PRN pain #28 tabs 05/08/25 Rx Have you fallen in the past year?: No PFSH Medical History (Updated 05/08/25 @ 14:25 by JIMMY Dawson) Screening for breast cancer Thrombocytopenia Ascites CHF (congestive heart failure) Dyspnea Skin cancer Encounter for education Wears glasses Cancer Alcohol use Open wound High cholesterol Pulmonary embolism Back pain Injury of back History of ulceration Non-smoker History of edema Breast cancer Abnormal mammogram of left breast Left breast lump Squamous cell skin cancer Umbilical hernia Preoperative evaluation to rule out surgical contraindication Hypokalemia Cellulitis of right leg Screening for thyroid disorder History of skin cancer Ulcer of right leg Hx of staphylococcal infection Hypertension Dermatitis Osteoporosis Hyponatremia Elevated liver enzymes Post-menopausal Varicose veins of both lower extremities Hypotension Age-related physical debility Left hip pain GERD (gastroesophageal reflux disease) Bleeding ulcer Broken hip Carotid stenosis, right Vertigo Arthritis Cirrhosis Surgical History (Updated 05/08/25 @ 14:27 by JIMMY Dawson) History of kyphoplasty History of left mastectomy Hx of tonsillectomy Status post Mohs surgery History of left hip replacement History of knee replacement History of hysterectomy Family History Mother Alzheimer disease Father Heart disease Diabetes Social History housing: house Smoking Status: Never smoker alcohol intake: former substance use type: does not use HPI LUMBAR SPINE Details: This documentation accurately reflects the service provided and the decisions made by , JIMMY Dawson 05/08/25 1306. Part of today???s visit was documented by Tawnya NEWMAN, acting as scribe. MARY ALICE GA is a 74 year old F here today for low back pain. he states that she was previously seen by a outcomes specialist in [place] Dr. Quoc SCHMITT in [place] as she goes there during the coreas. She states that she did have a kyphoplasty with him in July of 2024 for a compression fracture from T12-L2. [place] a lot better after the kyphoplasty. She reports that she does have a compression fracture of L5 and was supposed to have surgery in September but has been dealing with an open wound of her left lower leg and foot and was unable to have the surgery. She is still dealing with the open wound. She states that the wound started with a cut on her foot but has bad circulation which caused it to open up. She is being treated for the wound at [facility] in [place] and it is healing but has been told she has about another 6 weeks before it is completely healed. She states that her pain is on both side of her lower back above her belt line. Her pain is worse on the right side. Says that sitting is better than standing or walking and her pain does exacerbate with standing or walking. Says that she can only take several steps at a time before her pain worsens and she needs to sit down. She was walking with a cane for short distances and would use the rollator walker she has for long di (more content not included)... Normal [facility] CNTHERAPYon 05-06-2025 CNTHERAPY [facility] Internal Medicine Office Vis iton 04-29-2025 Internal Medicine Office Visit [facility] [address] [place] [address] OFFICE VISIT Date of Service: 04/29/25 MR#: [id number] Acct: [id number] Name: MARY ALICE GA Rep #: [id number] : 1950 Provider: SAMUEL paulson Age/Sex: 74/F Location: [facility] Status: Signed Intake Vital Signs 04/25/25 13:01 04/29/25 12:50 Height 5 ft 1 in 5 ft 1 in BP 128/66 H Blood Pressure Location Lt brachial Position Sitting Respiration 18 Pulse 63 Pulse Source Monitor Temp 96.8 F L Temp Source Temporal Pulse Oximetry (%) 97 Oxygen Delivery Method room air Intake Visit Reasons: ACUTE NOT FEELING WELL Chief Complaint: ACUTE NOT FEELING WELL Is patient in pain?: Yes (6 upper back) Allergies No Known Allergies Allergy (Verified 04/29/25 12:48) Medications ???Medication ???Instructions ???Recorded ???Confirmed ???Type compress.stocking,knee,reg ,lrg #2 ea 05/09/23 04/29/25 Rx acetaminophen 500 mg capsule 500 mg PO Q6H PRN pain 06/08/23 History calcium 600 mg (as 1 tab PO BID 12/27/23 04/29/25 His tory carbonate)-vitamin D3 5 mcg (200 unit) tablet (Calcium 600 + D(3)) anastrozole 1 mg tablet 1 mg PO DAILY #90 tabs 04/22/24 Rx furosemide 40 mg tablet 40 mg PO BID DIURETIC #180 tabs 04/29/25 Rx pantoprazole 40 mg tablet,delayed 40 mg PO DAILY GERD 3 months #90 11/27/24 04/29/25 Rx release tabs spironolactone 50 mg tablet 50 mg PO BID #180 tabs 11/27/24 Rx potassium chloride 20 mEq 20 meq PO BID SUPPLEMENT #90 tabs 01/13/25 04/29/25 Rx tablet,extended release(part/cryst) nadolol 20 mg tablet 20 mg PO DAILY BP #90 tabs 5 04/29/25 Rx tramadol 50 mg tablet 50 mg PO TID PRN pain #28 tabs 04/29/25 Rx Have you fallen in the past year?: No Nurse's Note: pt has c/o of a cough that she has had for months, reports she is exposed to 2nd hand smoke from her 's pipe smoking pt reports she is in pain from her upper back also has c/o of shortness of breath and mild chest pain that comes and goes with exertion PFSH Medical History Screening for breast cancer Thrombocytopenia Ascites CHF (congestive heart failure) Dyspnea Skin cancer Encounter for education Wears glasses Cancer Alcohol use Open wound High cholesterol Pulmonary embolism Back pain Injury of back History of ulceration Non-smoker History of edema Breast cancer Abnormal mammogram of left breast Left breast lump Squamous cell skin cancer Umbilical hernia Preoperative evaluation to rule out surgical contraindication Hypokalemia Cellulitis of right leg Screening for thyroid disorder History of skin cancer Ulcer of right leg Hx of staphylococcal infection Hypertension Dermatitis Osteoporosis Hyponatremia Elevated liver enzymes Post-menopausal Varicose veins of both lower extremities Hypotension Age-related physical debility Left hip pain GERD (gastroesophageal reflux disease) Bleeding ulcer Broken hip Carotid stenosis, right Vertigo Arthritis Cirrhosis Surgical History History of left mastectomy Hx of tonsillectomy Status post Mohs surgery History of left hip replacement History of knee replacement History of hysterectomy Family History Mother Alzheimer disease Father Heart disease Diabetes Social History housing: house Smoking Status: Never smoker alcohol intake: former substance use type: does not use HPI HPI Chief Complaint: ACUTE NOT FEELING WELL Details: MARY ALICE GA, is a 74 F who presents to the office today for multiple concerns. Patient with a history of chronic back pain, cirrhosis, alcoholism, CHF, dyspnea, varicose veins, edema, and hypertension. Patient complains of increasing back pain states she has been using tramadol as needed sparingly usually takes half of a tablet at a time for increased back pain or pain after wound debridement. Patient did have referral placed to Dr. Johnson recently awaiting call for scheduling. Patient has a follow-up appointment with orthopedics next week to further evaluate the back pain. Patient concerned with cough. She states cough worse when her is home as he uses a pipe. Nonproductive cough states that she has had it on and off for about a month. It started after her returned home from being an inpatient rehab after hospitalization states especially worse after having to have the windows closed while he was smoking due to the heat outside. Patient also has a urinary concerns states her urine has been dark for approximately (more content not included)... Normal [facility] 04-28-2025 CNTHERAPY [facility] 04-22-2025 CNTHERAPY [facility] 04-15-[address] [facility] 04-08-2025 CNOV [facility] 04-08-2025 CNTHERAPY [facility] [id number] 04-01-2025 [id number] [facility] 04-01-2025 CNTHERAPY [facility] 03-25-2025 CNTHERAPY [facility] 03-19-2025 CNTHERAPY [facility] 03-11-2025 CNTHERAPY [facility] 03-03-[address] [facility] Absolute lymphocyte countOrd ered By: Nayan Hernandezni on 02-24-2025 Lymphocytes Auto (Unsp spec) [#/Vol] 0.74 10*3/uL Low 0.83-4.51 [facility] Absolute neutrophil countOrd ered By: Nayan Blackmon on 02-24-2025 Neutrophils (Bld) [#/Vol] 2.1 10*3/uL 2.0-7.7 [facility] Alanine Aminotransferas (SGP T)on 02-24-2025 ALT [Catalytic activity/Vol] 30 U/L Normal <=34 [facility] Comment on above: Performed By: #### L 501.4405, L100.0100, L501.1105 #### [facility] [address] [place], [place], [address] Automated lymphocyte count a s percentage of total leukocytesOrdered By: Nayansudha Blackmon on 02-24-2025 Lymphocytes/100 WBC Auto (Unsp spec) 21.1 % 19-41 [facility] Basophil percentageOrdered B y: Nayan Hernandezni on 02-24-2025 Basophils/100 WBC (Bld) 1.1 % High 0-1 [facility] Blood manual differential co mment interpretation (narrative result)Ordered By: Nayan Blackmon on 02-24-2025 Manual differential comment Emir (Bld) [Interp] SCANNED [facility] CBC W/Diff, Automatedon 02-03 PLT EST MOD DEC Normal ADEQ [facility] Comment on above: Performed By: #### L 501.4405, L100.0100, L501.1105 #### [facility] [address] [place], [address] SMEAR COMMENT SCANNED Normal [facility] Comment on above: Performed By: #### L 501.4405, L100.0100, L501.1105 #### [facility] [address] [place], [address] CNTHERAPYon 02-24-2025 CNTHERAPY Normal [facility] Eosinophil percentageOrdered By: Nayan Blackmon on 02-24-2025 Eosinophils/100 WBC (Bld) 7.1 % High 0-5 [facility] Erythrocyte distribution wid th ratioOrdered By: Nayan Blackmon on 02-24-2025 Erythrocyte distribution width (RBC) [Ratio] 13.6 % 11.6-14.6 [facility] Erythrocyte distribution wid th standard deviationOrdered By: Nayan Blackmon on 02-24-2025 Erythrocyte distribution width (RBC) [Ratio] 51.1 fl High 35.1-43.9 [facility] Glomerular filtration rate ( GFR) estimation/1.73 sq m using serum, plasma, or whole bOrdered By: Nayan Blackmon on 02-24-2025 GFR/1.73 sq M.predicted among non-blacks MDRD (S/P/Bld) [Vol rate/Area] 99 mL/min/{1.73_m2} >60 [facility] Comment on above: mL/min/1.73m2 CKD-EP I Creatinine Equation (2020) Hematocrit Auto (Bld) [Volum e fraction]Ordered By: Nayan Blackmon on 02-24-2025 Hematocrit (Bld) [Volume fraction] 29.9 % Low 37-47 [facility] Hemoglobin measurementOrdere d By: Nayan Blackmon on 02-24-2025 Hemoglobin (Bld) [Mass/Vol] 10.8 g/dL Low 12.0-15.0 [facility] Immature granulocytes/100 WB C Auto (Bld)Ordered By: Nayan Blackmon 02-24-2025 Immature granulocytes/100 WBC (Bld) 0.300 % 0.0-0.9 [facility] Comment on above: IG% - Immature Granu locytes (promyelocytes, myelocytes and metamyelocytes) > 1% indicates that a LEFT SHIFT is Present. MCV (mean corpuscular volume ) determinationOrdered By: Nayan Blackmon on 02-24-2025 MCV (RBC) [Entitic vol] 102.0 fL High 81-99 [facility] Mean corpuscular hemoglobin (MCH) determinationOrdered By: Nayan Blackmon 02-24-2025 MCH (RBC) [Entitic mass] 36.9 pg High 27.0-32.0 [facility] Mean corpuscular hemoglobin concentration (MCHC) determinationOrdered By: Nayan Blackmon on 02-24-2025 MCHC (RBC) [Mass/Vol] 36.1 g/dL High 32-36 [facility] Mean platelet volume determi nationOrdered By: Nayan Blackmon on 02-24-2025 Platelet mean volume (Bld) [Entitic vol] 9.8 fL 6.2-12.0 [facility] Monocyte percentageOrdered B y: Nayan Blackmon on 02-24-2025 Monocytes/100 WBC (Bld) 11.7 % High 0-10 [facility] Neutrophil percentageOrdered By: Nayan Blackmon on 02-24-2025 Neutrophils/100 WBC (Bld) 58.7 % 47-70 [facility] Nucleated red blood cell per centageOrdered By: Nayan Blackmon on 02-24-2025 Nucleated RBC/100 WBC (Bld) [Ratio] 0 % 0-5 [facility] Platelet countOrdered By: Ra rodney Blackmon on 02-24-2025 Platelets (Bld) [#/Vol] 89 10*3/uL Low 150-450 [facility] Platelet estimateOrdered By: Nayan Blackmon on 02-24-2025 Platelets LM Ql (Bld) MOD DEC ADEQ [facility] RBC Auto (Bld) [#/Vol]Ordere d By: Nayan Blackmon on 02-24-2025 RBC (Bld) [#/Vol] 2.93 10*6/uL Low 4.2-5.4 [facility] Serum Creatinine AND GFRon 0 02-24-2025 Creatinine [Mass/Vol] 0.50 mg/dL Low 0.70-1.20 [facility] Comment on above: Performed By: #### L 501.4405, L100.0100, L501.1105 #### [facility] [address] [place], [address] GFR/1.73 sq M.predicted among non-blacks MDRD (S/P/Bld) [Vol rate/Area] 99 mL/min/{1.73_m2} Normal >60 [facility] Comment on above: Result Comment: mL/m in/1.73m2 CKD-EPI Creatinine Equation (2020) Performed By: #### L 501.4405, L100.0100, L501.1105 #### [facility] [place], [address] Serum creatinine measurement (mass/volume)Ordered By: Nayan Blackmon on 02-24-2025 Creatinine [Mass/Vol] 0.50 mg/dL Low 0.70-1.20 [facility] Serum or plasma alanine gibbs otransferase (ALT) measurementOrdered By: Nayan Blackmon on 02-24-2025 ALT [Catalytic activity/Vol] 30 U/L <35 [facility] White blood cell (WBC) count Ordered By: Nayan Blackmon on 02-24-2025 WBC (Bld) [#/Vol] 3.5 10*3/uL Low 4.4-11.0 [facility] NURSING PROGon 02-18-2025 NURSING PROG [facility] CNPNon 02-17-2025 CNPN Normal [facility] CNTHERAPYon 02-17-2025 CNTHERAPY Normal [facility] CNOVon 02-11-2025 CNOV Normal [facility] CNTHERAPYon 02-10-2025 CNTHERAPY Normal [facility] CNTHERAPYon 02-03-2025 CNTHERAPY Normal [facility] Bacteria Wnd Culton 01-29-20 25 Bacteria identified Cx Nom (Wound) Abnormal [facility] Comment on above: Performed By: #### 6 [id number] ####[facility] [id number] [address] OF [facility] CNTHERAPYon 01-28-2025 CNTHERAPY Normal [facility] Absolute lymphocyte countOrd ered By: Nabeel Patel on 01-23-2025 Lymphocytes Auto (Unsp spec) [#/Vol] 1.69 10*3/uL 0.83-4.51 [facility] Absolute neutrophil countOrd ered By: Nabeel Patel on 01-23-2025 Neutrophils (Bld) [#/Vol] 2.6 10*3/uL 2.0-7.7 [facility] Anion gap in Serum or Plasma Ordered By: Damaritresa Patel on 01-23-2025 Anion gap [Moles/Vol] 16 mmol/L High 5-15 [facility] Automated lymphocyte count a s percentage of total leukocytesOrdered By: Nabeel Amanda on 01-23-2025 Lymphocytes/100 WBC Auto (Unsp spec) 33.3 % 19-41 [facility] BUN/creatinine ratioOrdered By: [facility] Amanda on 01-23-2025 Urea nitrogen/Creatinine [Mass ratio] 16.4 mg/mg 10-20 [facility] Basophil percentageOrdered B y: [facility] Patel on 01-23-2025 Basophils/100 WBC (Bld) 0.8 % 0-1 [facility] Bilirubin, totalOrdered By: [facility] Patel on 01-23-2025 Bilirubin [Mass/Vol] 2.33 mg/dL High 0.00-1.30 [facility] CBC W/Diff, Automatedon 01-03 Absolute Lymph 1.69 X10 3/uL Normal 0.83-4.51 [facility] Comment on above: Performed By: #### L 500.4050, L100.0100 #### [facility] [address] [place], [address] Absolute Neut 2.6 X10 3/uL Normal 2.0-7.7 [facility] Comment on above: Performed By: #### L [id number], L100.0100 #### [facility] [address] [place], [address] Basophils/100 WBC (Bld) 0.8 % Normal 0-1 [facility] Comment on above: Performed By: #### L 500.4050, L100.0100 #### [facility] [address] [place], [address] Eosinophils/100 WBC (Bld) 0.6 % Normal 0-5 [facility] Comment on above: Performed By: #### L 500.4050, L100.0100 #### [facility] [address] [place], [address] Erythrocyte distribution width (RBC) [Ratio] 13.7 % Normal 11.6-14.6 [facility] Comment on above: Performed By: #### L 500.4050, L100.0100 #### [facility] [address] [place], [address] Hematocrit (Bld) [Volume fraction] 35.4 % Low 37-47 [facility] Comment on above: Performed By: #### L 500.4050, L100.0100 #### [facility] [address] [place], [address] Hemoglobin (Bld) [Mass/Vol] 12.8 g/dL Normal 12.0-15.0 [facility] Comment on above: Performed By: #### L 500.4050, L100.0100 #### [facility] [address] [place], [address] IG% 0.400 Normal 0.0-0.9 [facility] Comment on above: Result Comment: IG% - Immature Granulocytes (promyelocytes, myelocytes and metamyelocytes) > 1% indicates that a LEFT SHIFT is Present. Performed By: #### L 500.4050, L100.0100 #### [facility] [address] [place], [address] Lymphocytes/100 WBC (Bld) 33.3 % Normal 19-41 [facility] Comment on above: Performed By: #### L [id number], L100.0100 #### [facility] [address] [place], [address] MCH (RBC) [Entitic mass] 36.1 pg High 27.0-32.0 [facility] Comment on above: Performed By: #### L 500.4050, L100.0100 #### [facility] [address] [place], [address] MCHC (RBC) [Mass/Vol] 36.2 g/dL High 32-36 [facility] Comment on above: Performed By: #### L 500.4050, L100.0100 #### [facility] [address] [place], [address] MCV (RBC) [Entitic vol] 99.7 fL High 81-99 [facility] Comment on above: Performed By: #### L 500.4050, L100.0100 #### [facility] [address] [place], [address] Monocytes/100 WBC (Bld) 13.2 % High 0-10 [facility] Comment on above: Performed By: #### L 500.4050, L100.0100 #### [facility] [address] [place], [address] Neutrophils/100 WBC (Bld) 51.7 % Normal 47-70 [facility] Comment on above: Performed By: #### L 500.4050, L100.0100 #### [facility] [address] [place], [address] Nucleated RBC (Bld) [#/Vol] 0 10*3/uL Normal 0-5 [facility] Comment on above: Performed By: #### L 500.4050, L100.0100 #### [facility] [address] [place], [address] Platelet mean volume (Bld) [Entitic vol] 8.4 fL Normal 6.2-12.0 [facility] Comment on above: Performed By: #### L 500.4050, L100.0100 #### [facility] [address] [place], [address] Platelets (Bld) [#/Vol] 122 10*3/uL Low 150-450 [facility] Comment on above: Performed By: #### L 500.4050, L100.0100 #### [facility] [address] [place], [address] RBC (Bld) [#/Vol] 3.55 10*6/uL Low 4.2-5.4 [facility] Comment on above: Performed By: #### L 500.4050, L100.0100 #### [facility] [address] [place], [address] RDW SD 49.6 fl High 35.1-43.9 [facility] Comment on above: Performed By: #### L 500.4050, L100.0100 #### [facility] [address] [place], [address] WBC (Bld) [#/Vol] 5.1 10*3/uL Normal 4.4-11.0 [facility] Comment on above: Performed By: #### L 500.4050, L100.0100 #### [facility] [address] [place], [address] Carbon dioxide, total [Moles /volume] in Central venous bloodOrdered By: Nabeel Patel on 01-23-2025 CO2 [Moles/Vol] 22.9 mmol/L 21.0-32.0 [facility] Chloride assayOrdered By: Anirudh Patel on 01-23-2025 Chloride [Moles/Vol] 92 mmol/L Low 98-108 [facility] Comprehensive Metabolic Prof ilon 01-23-2025 Albumin [Mass/Vol] 3.8 g/dL Normal 3.4-4.8 [facility] Comment on above: Performed By: #### L 501.4405, L100.0100, L501.1105 #### [facility] [address] [place], [address] Albumin/Globulin [Mass ratio] 1.1 {ratio} Normal 0.9-2.4 [facility] Comment on above: Performed By: #### L 501.4405, L100.0100, L501.1105 #### [facility] [address] [place], [address] ALK PHOS 251 U/L High 35-104 [facility] Comment on above: Performed By: #### L 501.4405, L100.0100, L501.1105 #### [facility] [address] [place], [address] ALT [Catalytic activity/Vol] 27 U/L Normal <=34 [facility] Comment on above: Performed By: #### L 501.4405, L100.0100, L501.1105 #### [facility] [address] [place], [address] AST [Catalytic activity/Vol] 89 U/L High <=31 [facility] Comment on above: Performed By: #### L 501.4405, L100.0100, L501.1105 #### [facility] [address] [place], [address] Bilirubin [Mass/Vol] 2.33 mg/dL High 0.00-1.30 [facility] Comment on above: Performed By: #### L 501.4405, L100.0100, L501.1105 #### [facility] [address] [place], [address] BUN/CRE 16.4 RATIO Normal 10-20 [facility] Comment on above: Performed By: #### L 501.4405, L100.0100, L501.1105 #### [facility] [address] [place], [address] Calcium [Mass/Vol] 9.7 mg/dL Normal 7.6-11.0 [facility] Comment on above: Performed By: #### L 501.4405, L100.0100, L501.1105 #### [facility] [address] [place], [address] Chloride [Moles/Vol] 92 mmol/L Low 98-108 [facility] Comment on above: Performed By: #### L 501.4405, L100.0100, L501.1105 #### [facility] [address] [place], [address] CO2 [Moles/Vol] 22.9 mmol/L Normal 21.0-32.0 [facility] Comment on above: Performed By: #### L 501.4405, L100.0100, L501.1105 #### [facility] [address] [place], [address] Creatinine [Mass/Vol] 0.66 mg/dL Low 0.70-1.20 [facility] Comment on above: Performed By: #### L 501.4405, L100.0100, L501.1105 #### [facility] [address] [place], [address] ECRCL 54.08 ml/min Normal 50-250 [facility] Comment on above: Performed By: #### L 501.4405, L100.0100, L501.1105 #### [facility] [address] [place], [address] GAP 16 High 5-15 [facility] Comment on above: Performed By: #### L 501.4405, L100.0100, L501.1105 #### [facility] [address] [place], [address] GFR/1.73 sq M.predicted among non-blacks MDRD (S/P/Bld) [Vol rate/Area] 92 mL/min/{1.73_m2} Normal >60 [facility] Comment on above: Result Comment: mL/m in/1.73m2 CKD-EPI Creatinine Equation (2020) Performed By: #### L 501.4405, L100.0100, L501.1105 #### [facility] [address] [place], [address] Globulin (S) [Mass/Vol] 3.6 g/dL Normal 2.2-4.2 [facility] Comment on above: Performed By: #### L 501.4405, L100.0100, L501.1105 #### [facility] [address] [place], [address] Glucose [Mass/Vol] 129 mg/dL High 70-99 [facility] Comment on above: Performed By: #### L 501.4405, L100.0100, L501.1105 #### [facility] [address] [place], [address] Potassium [Moles/Vol] 3.6 mmol/L Normal 3.3-5.1 [facility] Comment on above: Performed By: #### L 501.4405, L100.0100, L501.1105 #### [facility] [address] [place], [address] Sodium [Moles/Vol] 130 mmol/L Low 133-145 [facility] Comment on above: Performed By: #### L 501.4405, L100.0100, L501.1105 #### [facility] [address] [place], [address] T PROT 7.4 g/dL Normal 5.9-8.4 [facility] Comment on above: Performed By: #### L 501.4405, L100.0100, L501.1105 #### [facility] [address] [place], [address] Urea nitrogen [Mass/Vol] 11 mg/dL Normal 4-19 [facility] Comment on above: Performed By: #### L 501.4405, L100.0100, L501.1105 #### [facility] [place], [address] Eosinophil percentageOrdered By: Nabeel Patel on 01-23-2025 Eosinophils/100 WBC (Bld) 0.6 % 0-5 [facility] Erythrocyte distribution wid th ratioOrdered By: [facility] on 01-23-2025 Erythrocyte distribution width (RBC) [Ratio] 13.7 % 11.6-14.6 [facility] Erythrocyte distribution wid th standard deviationOrdered By: Nabeel Patel on 01-23-2025 Erythrocyte distribution width (RBC) [Ratio] 49.6 fl High 35.1-43.9 [facility] Glomerular filtration rate ( GFR) estimation/1.73 sq m using serum, plasma, or whole bOrdered By: [facility] Patel on 01-23-2025 GFR/1.73 sq M.predicted among non-blacks MDRD (S/P/Bld) [Vol rate/Area] 92 mL/min/{1.73_m2} >60 [facility] Comment on above: mL/min/1.73m2 CKD-EP I Creatinine Equation (2020) Hematocrit Auto (Bld) [Volum e fraction]Ordered By: Nabeel Patel on 01-23-2025 Hematocrit (Bld) [Volume fraction] 35.4 % Low 37-47 [facility] Hemoglobin measurementOrdere d By: Nabeel Patel on 01-23-2025 Hemoglobin (Bld) [Mass/Vol] 12.8 g/dL 12.0-15.0 [facility] Immature granulocytes/100 WB C Auto (Bld)Ordered By: Nabeel Patel on 01-23-2025 Immature granulocytes/100 WBC (Bld) 0.400 % 0.0-0.9 [facility] Comment on above: IG% - Immature Granu locytes (promyelocytes, myelocytes and metamyelocytes) > 1% indicates that a LEFT SHIFT is Present. Laboratory - Chemistry and C hemistry - challengeOrdered By: Nabeel Patel on 01-23-2025 AST [Catalytic activity/Vol] 89 U/L High <32 [facility] MCV (mean corpuscular volume ) determinationOrdered By: Nabeel Patel on 01-23-2025 MCV (RBC) [Entitic vol] 99.7 fL High 81-99 [facility] Mean corpuscular hemoglobin (MCH) determinationOrdered By: Nabeel Patel on 01-23-2025 MCH (RBC) [Entitic mass] 36.1 pg High 27.0-32.0 [facility] Mean corpuscular hemoglobin concentration (MCHC) determinationOrdered By: Nabeel Patel on 01-23-2025 MCHC (RBC) [Mass/Vol] 36.2 g/dL High 32-36 [facility] Mean platelet volume determi nationOrdered By: Nabeel Patel on 01-23-2025 Platelet mean volume (Bld) [Entitic vol] 8.4 fL 6.2-12.0 [facility] Monocyte percentageOrdered B y: Nabeel Patel on 01-23-2025 Monocytes/100 WBC (Bld) 13.2 % High 0-10 [facility] Neutrophil percentageOrdered By: Nabeel Patel on 01-23-2025 Neutrophils/100 WBC (Bld) 51.7 % 47-70 [facility] Nucleated red blood cell per centageOrdered By: Nabeel Patel on 01-23-2025 Nucleated RBC/100 WBC (Bld) [Ratio] 0 % 0-5 [facility] Oncology Visit Reporton 01-03 Oncology Visit Report [facility] [facility] [address] [place] [address] OFFICE VISIT Date of Service: 01/23/25 1311 MR#: [id number] Acct: [id number] Name: MARY ALICE GA Rep #: [id number] : 1950 From: Nabeel Patel MD Age/Sex: 74/F Location: [facility] Status: Signed HPI Subjective Date of Service 01/23/25 Chief Complaint Breast ca on treatment History of Present Illness 73-year-old female with multiple chronic medical problems including alcoholic liver disease with ongoing alcohol consumption, atherosclerotic arterial disease, hypertension, postmenopausal bone loss, chronic lower extremities edema, nonhealing ulcer and a 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 Patient has not had a screening mammogram for years until May 2023 when she felt a painless lump in the left breast. May 10, 2023 diagnostic mammogram: IMPRESSION: 1.1 cm by 1.1 cm spiculated nodule in the deep upper lateral aspect of the left breast. Correlation with ultrasound is recommended. May 10, 2023 breast ultrasound: FINDINGS: LEFT Breast: There is a 9 mm x 11 mm x 9 mm hypoechoic irregular solid nodule at the 3:00 position of the breast at 7 cm from the nipple. A similar appearing nodule is seen at the 2:00 position of the breast and 9 cm from the nipple. This measures 7 mm x 4 mm x 5 mm. Increased vascularity is seen. Biopsies of both lesions recommended. IMPRESSION: 2 suspicious lesions are seen at the 3:00 and 2:00 position of the left breast as described. Biopsy recommended. May 15, 2023 procedure note: Through the same small incision I was able to identify the palpable lesion left breast 3 o'clock position +7 cm. Again local was instilled. A 14-gauge Monopty needle was advanced to prefire depth. Pre and post fire films were obtained. Single core was obtained. A coil clip was placed. The specimen was immediately placed in formalin The left axilla was inspected and identified at least 2 lymph nodes. One measured 1.49 cm in diameter. Again local was instilled and a small stab incisions created. 2 14-gauge Monopty needle core biopsies were obtained. Pre and post images obtained. The specimens were submitted in formalin. A coil clip was placed. May 15, 2023 pathology: MICROSCOPIC DIAGNOSIS A. Left breast tissue, 2 o???clock, 9 cm from nipple, core biopsy: Invasive ductal carcinoma, nuclear grade 2 (0.6 cm in greatest length). See comment. B. Left breast tissue, 3 o???clock, 7 cm from nipple, core biopsy: Invasive ductal carcinoma, nuclear grade 2 (1.0 cm in greatest length). Focal ductal carcinoma in situ. See comment. C. Left lymph node, core biopsy: Fragment of lymph node tissue, negative for metastatic carcinoma. ANTIBODY / CLONE RESULT Block A E-Cad (ECH-6) positive CK8 (59qbmlD47) positive Calponin-1 (GT636F) negative CK5-6 (D5 1684) negative P40 (BC28) negative P53 (DO-7) negative (null pattern) Ki-67 (30-9) positive, low ( 15%) MORPHOMETRIC ANALYSIS ER (clone 6F11) >95%, strong intensity KS (clone 16/1E2) >95%, strong intensity Her-2Neu (clone CB11) 1-2+ Block B E-Cad (ECH-6) positive CK8 (33vbynT25) positive Calponin-1 (LN164G) negative * CK5-6 (D5 1684) negative * P40 (BC28) negative * P53 (DO-7) positive, rare cells (wild type pattern) Ki-67 (30-9) positive * Positive in the area of DCIS. MORPHOMETRIC ANALYSIS ER (clone 6F11) >95%, strong intensity KS (clone 16/1E2) >95%, strong intensity Her-2Neu (clone CB11) 1-2+ Block C AE1-3 (AE1/AE3/PCK26) negative CK7 (OV-TL12/30) negative IN SITU HYBRIDIZATION (RYAN) FOR HER2 Specimen A Interpretation: Negative / Not Amplified HER2 : CEP-17 Ratio: 0.8 Average HER2 Signal: 1.4 Average CEP-17 Signal: 1.65 Number of Tumor Cells Scanned: 50 Specimen B Interpretation: Negative / Not Amplified HER2 : CEP-17 Ratio: 1.09 Average HER2 Signal: 2.35 Average CEP-17 Signal: 2.1 Number of Tumor Cells Scanned: 50 May 29, 2023 bone scan staging: IMPRESSION: 1. The increase in radiopharmaceutical concentration identified in the third lumbar vertebra and bilateral anterior seventh ribs is commensurate with trauma-fracture. 2. 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 3. There is no definitive typical scintigraphic evidence of multifocal osseous metastatic disease. May 31, [address] staging: IMPRESSION: 1. Mild cardiomegaly. No acute chest disease. 2. Cirrhosis. Indirect evidence of portal hypertension. 3. Cholelithiasis. 4. No acute abnormalities are seen. June 12, 2023 left mastectomy with sentinel lymph node biopsy followed by left axillary dissection: MICROSCOPIC DIAGNOSIS A. Left axillary sen (more content not included)... Normal [facility] Platelet countOrdered By: Anirudh Patel on 01-23-2025 Platelets (Bld) [#/Vol] 122 10*3/uL Low 150-450 [facility] Potassium measurement (mass/ volume)Ordered By: Nabeel Patel on 01-23-2025 Potassium (Unsp spec) [Mass/Vol] 3.6 mmol/L 3.3-5.1 [facility] RBC Auto (Bld) [#/Vol]Ordere d By: Nabeel Patel on 01-23-2025 RBC (Bld) [#/Vol] 3.55 10*6/uL Low 4.2-5.4 [facility] Serum creatinine measurement (mass/volume)Ordered By: Nabeel Patel on 01-23-2025 Creatinine [Mass/Vol] 0.66 mg/dL Low 0.70-1.20 [facility] Serum globulin measurementOr dered By: Nabeel Patel on 01-23-2025 Globulin (S) [Mass/Vol] 3.6 g/dL 2.2-4.2 [facility] Serum glucose measurement (m ass/volume)Ordered By: Nabeel Patel on 01-23-2025 Glucose [Mass/Vol] 129 mg/dL High 70-99 [facility] Serum or plasma alanine gibbs otransferase (ALT) measurementOrdered By: Nabeel Patel on 01-23-2025 ALT [Catalytic activity/Vol] 27 U/L <35 [facility] Serum or plasma albumin seth urement (mass/volume)Ordered By: Nabeel Patel on 01-23-2025 Albumin [Mass/Vol] 3.8 g/dL 3.4-4.8 [facility] Serum or plasma albumin/glob ulin mass ratioOrdered By: Nabeel Patel on 01-23-2025 Albumin/Globulin [Mass ratio] 1.1 {ratio} 0.9-2.4 [facility] Serum or plasma alkaline miguel sphatase measurementOrdered By: Nabeel Patel on 01-23-2025 ALP [Catalytic activity/Vol] 251 U/L High 35-104 [facility] Serum or plasma calcium seth urement (mass/volume)Ordered By: Nabeel Patel on 01-23-2025 Calcium [Mass/Vol] 9.7 mg/dL 7.6-11.0 [facility] Serum or plasma urea nitroge n measurement (mass/volume)Ordered By: Nabeel Patel on 01-23-2025 Urea nitrogen [Mass/Vol] 11 mg/dL 4-19 [facility] Sodium levelOrdered By: Damari Patel on 01-23-2025 Sodium [Moles/Vol] 130 mmol/L Low 133-145 [facility] Total proteinOrdered By: Uriel Patel on 01-23-2025 Protein [Mass/Vol] 7.4 g/dL 5.9-8.4 [facility] White blood cell (WBC) count Ordered By: Nabeel Patel on 01-23-2025 WBC (Bld) [#/Vol] 5.1 10*3/uL 4.4-11.0 [facility] Internal Medicine Office Vis iton 01-22-2025 Internal Medicine Office Visit [facility] [address] [place] [address] [address] [place] [address] OFFICE VISIT Date of Service: 01/22/25 MR#: [id number] Acct: [id number] Name: MARY ALICE GA Rep #: [id number] : 1950 Provider: JIMMY Mohamud Age/Sex: 74/F Location: [facility] Status: Signed Intake Vital Signs 06/17/24 14:11 01/22/25 11:52 Height 5 ft 2 in 5 ft 2 in Weight: 144 lb BMI 26.3 BP 110/60 Blood Pressure Location Rt brachial Position Sitting Respiration 16 Pulse 64 Pulse Source Monitor Temp 97.2 F L Temp Source Temporal Pulse Oximetry (%) 95 Oxygen Delivery Method room air Intake Visit Reasons: ACUTE-MED DISCUSSION/REFILLS Media Producer Required: No Is patient in pain?: Yes (RLL) Pain scale (1-10): 10 Allergies No Known Allergies Allergy (Verified 01/23/25 13:17) Medications ???Medication ???Instructions ???Recorded ???Confirmed ???Type compress.stocking,knee,reg ,lrg #2 ea 05/09/23 01/23/25 Rx acetaminophen 500 mg capsule 500 mg PO Q6H PRN pain 06/08/23 History calcium 600 mg (as 1 tab PO BID 12/27/23 01/23/25 His tory carbonate)-vitamin D3 5 mcg (200 unit) tablet (Calcium 600 + D(3)) anastrozole 1 mg tablet 1 mg PO DAILY #90 tabs 04/22/24 Rx romosozumab-aqqg 210 mg/2.34 210 mg (2.34 mL) subcut QMONTH 12 04/26/24 01/23/25 Rx mL(105 mg/1.17 mL x2)subcutaneous months #28.08 mL syringe (Evenity) nadolol 20 mg tablet 20 mg PO DAILY BP #90 tabs 4 01/23/25 Rx furosemide 40 mg tablet 40 mg PO BID DIURETIC #180 tabs 01/23/25 Rx pantoprazole 40 mg tablet,delayed 40 mg PO DAILY GERD 3 months #90 11/27/24 01/23/25 Rx release tabs spironolactone 50 mg tablet 50 mg PO BID #180 tabs 11/27/24 Rx potassium chloride 20 mEq 20 meq PO BID SUPPLEMENT #90 tabs 01/13/25 01/23/25 Rx tablet,extended release(part/cryst) tramadol 50 mg tablet 50 mg PO TID PRN pain #28 tabs 01/23/25 Rx Have you fallen in the past year?: No Nurse's Note: Pt wants you to refill her tramadol script states she has been using very sparingly. She was prescribed by ortho and states that she can not have surgery until her leg is healed. Back is in [place] and will not fill out of states. Pt states that she took some of her husbands oxycodone and that was the first time that she was able to sleep due to leg pain. She states her back pain is manageable. RLL is managed by wound center [facility] in [place] and has been ongoing since last year, compression stockings were left on too long and caused a wound. Pt states that she see's them percy and next appointment is 01/28/25. [facility] Medical History Screening for breast cancer Thrombocytopenia Ascites CHF (congestive heart failure) Dyspnea Skin cancer Encounter for education Wears glasses Cancer Alcohol use Open wound High cholesterol Pulmonary embolism Back pain Injury of back History of ulceration Non-smoker History of edema Breast cancer Abnormal mammogram of left breast Left breast lump Squamous cell skin cancer Umbilical hernia Preoperative evaluation to rule out surgical contraindication Hypokalemia Cellulitis of right leg Screening for thyroid disorder History of skin cancer Ulcer of right leg Hx of staphylococcal infection Hypertension Dermatitis Osteoporosis Hyponatremia Elevated liver enzymes Post-menopausal Varicose veins of both lower extremities Hypotension Age-related physical debility Left hip pain GERD (gastroesophageal reflux disease) Bleeding ulcer Broken hip Carotid stenosis, right Vertigo Arthritis Cirrhosis Surgical History History of left mastectomy Hx of tonsillectomy Status post Mohs surgery History of left hip replacement History of knee replacement History of hysterectomy Family History Mother Alzheimer disease Father Heart disease Diabetes Social History housing: house Smoking Status: Never smoker alcohol intake: former substance use type: does not use HPI HPI Details: MARY ALICE GA, is a 74 F who presents to the office today for follow-up on her chronic back pains. Patient sees a back specialist while she is in [place] due to multi-level kyphoplasty due to compression fractures. She had a few levels done at the beginning of July. She went back for f/u and She states that they told her that she has a crushed L5 vertebrae that is going to need to be treated she states. She was told this would require spacers along with the cement and that it would need done sooner than later but that she needed to have the wound on her (more content not included)... [facility] 01-20-2025 CNTHERAPY [facility] 01-13-2025 CNTHERAPY [facility] [id number] 01-07-2025 [id number] [facility] 01-06-2025 CNTHERAPY [facility] 06-26-2024 CNTHERAPY [facility] 06-18-2024 CNTHERAPY [facility] CBC-Complete Blood Cnt No Di ffon 06-17-2024 Erythrocyte distribution width (RBC) [Ratio] 15.2 % High 11.6-14.6 [facility] Comment on above: Performed By: #### L 500.4050, L100.0500 #### [facility] [address] [place], [address] Hematocrit (Bld) [Volume fraction] 35.7 % Low 37-47 [facility] Comment on above: Performed By: #### L 500.4050, L100.0500 #### [facility] [address] [place], [address] Hemoglobin (Bld) [Mass/Vol] 11.7 g/dL Low 12.0-15.0 [facility] Comment on above: Performed By: #### L 500.4050, L100.0500 #### [facility] [address] [place], [address] MCH (RBC) [Entitic mass] 28.3 pg Normal 27.0-32.0 [facility] Comment on above: Performed By: #### L 500.4050, L100.0500 #### [facility] [address] [place], [address] MCHC (RBC) [Mass/Vol] 32.8 g/dL Normal 32-36 [facility] Comment on above: Performed By: #### L 500.4050, L100.0500 #### [facility] [address] [place], [address] MCV (RBC) [Entitic vol] 86.2 fL Normal 81-99 [facility] Comment on above: Performed By: #### L 500.4050, L100.0500 #### [facility] [address] [place], [address] Platelet mean volume (Bld) [Entitic vol] 9.2 fL Normal 6.2-12.0 [facility] Comment on above: Performed By: #### L 500.4050, L100.0500 #### [facility] [address] [place], [address] Platelets (Bld) [#/Vol] 200 10*3/uL Normal 150-450 [facility] Comment on above: Performed By: #### L 500.4050, L100.0500 #### [facility] [address] [place], [address] RBC (Bld) [#/Vol] 4.14 10*6/uL Low 4.2-5.4 [facility] Comment on above: Performed By: #### L 500.4050, L100.0500 #### [facility] [address] [place], [address] RDW SD 47.8 fl High 35.1-43.9 [facility] Comment on above: Performed By: #### L 500.4050, L100.0500 #### [facility] [address] [place], [address] WBC (Bld) [#/Vol] 5.1 10*3/uL Normal 4.4-11.0 [facility] Comment on above: Performed By: #### L 500.4050, L100.0500 #### [facility] [address] [place], [address] Comprehensive Metabolic Prof ilon 06-17-2024 Albumin [Mass/Vol] 3.5 g/dL Normal 3.2-5.0 [facility] Comment on above: Performed By: #### L 500.4050, L100.0500 #### [facility] [address] [place], [address] Albumin/Globulin [Mass ratio] 0.8 {ratio} Low 0.9-2.4 [facility] Comment on above: Performed By: #### L 500.4050, L100.0500 #### [facility] [address] [place], [address] ALK P 235 U/L High 45-117 [facility] Comment on above: Performed By: #### L 500.4050, L100.0500 #### [facility] [address] [place], [address] ALT [Catalytic activity/Vol] 19 U/L Normal 13-56 [facility] Comment on above: Performed By: #### L 500.4050, L100.0500 #### [facility] [address] [place], [address] AST [Catalytic activity/Vol] 22 U/L Normal 15-37 [facility] Comment on above: Performed By: #### L 500.4050, L100.0500 #### [facility] [address] [place], [address] Bilirubin [Mass/Vol] 1.30 mg/dL High 0.20-1.00 [facility] Comment on above: Result Comment: For patients on eltrombopag therapy, use of Dimension Aurora TBIL is not recommended. Performed By: #### L 500.4050, L100.0500 #### [facility] [address] [place], [address] BUN/CRE 21.7 RATIO High 10-20 [facility] Comment on above: Performed By: #### L 500.4050, L100.0500 #### [facility] [address] [place], [address] CA,Total 9.8 mg/dL Normal 8.5-10.1 [facility] Comment on above: Performed By: #### L 500.4050, L100.0500 #### [facility] [address] [place], [address] Chloride [Moles/Vol] 98 mmol/L Normal 98-107 [facility] Comment on above: Performed By: #### L 500.4050, L100.0500 #### [facility] [address] [place], [address] CO2 [Moles/Vol] 28.0 mmol/L Normal 21.0-32.0 [facility] Comment on above: Performed By: #### L 500.4050, L100.0500 #### [facility] [address] [place], [address] Creatinine [Mass/Vol] 0.88 mg/dL Normal 0.55-1.02 [facility] Comment on above: Result Comment: The validity of the calculated GFR GFRAA in patients over 70 years has not been determined. Clinical correlation is essential. Performed By: #### L 500.4050, L100.0500 #### [facility] [address] [place], [address] ECRCL 52.58 ml/min Normal [facility] Comment on above: Performed By: #### L 500.4050, L100.0500 #### [facility] [address] [place], [address] EST GFR - AA 82 mL/min Normal >60 [facility] Comment on above: Result Comment: Afri can Mal[place]ian GFR Calc Performed By: #### L 500.4050, L100.0500 #### [facility] [address] [place], [address] GAP 7 Normal 5-15 [facility] Comment on above: Performed By: #### L 500.4050, L100.0500 #### [facility] [address] [place], [address] GFR/1.73 sq M.predicted among non-blacks MDRD (S/P/Bld) [Vol rate/Area] 67 mL/min/{1.73_m2} Normal >60 [facility] Comment on above: Result Comment: Non- GFR Calc Performed By: #### L 500.4050, L100.0500 #### [facility] [address] [place], [address] Globulin (S) [Mass/Vol] 4.3 g/dL High 2.2-4.2 [facility] Comment on above: Performed By: #### L 500.4050, L100.0500 #### [facility] [address] [place], [address] Glucose [Mass/Vol] 74 mg/dL Normal 74-106 [facility] Comment on above: Performed By: #### L 500.4050, L100.0500 #### [facility] [address] [place], [address] Potassium [Moles/Vol] 4.2 mmol/L Normal 3.5-5.1 [facility] Comment on above: Performed By: #### L 500.4050, L100.0500 #### [facility] [address] [place], [address] Sodium [Moles/Vol] 133 mmol/L Low 136-145 [facility] Comment on above: Performed By: #### L 500.4050, L100.0500 #### [facility] [address] [place], [address] T PROT 7.8 g/dL Normal 6.4-8.2 [facility] Comment on above: Performed By: #### L 500.4050, L100.0500 #### [facility] [address] [place], [address] Urea nitrogen [Mass/Vol] 19 mg/dL High 7-18 [facility] Comment on above: Performed By: #### L 500.4050, L100.0500 #### [facility] [address] [place], [address] Oncology Visit Reporton 06-04 Oncology Visit Report [facility] [address] [place] [address] OFFICE VISIT Date of Service: 06/17/24 1410 MR#: [id number] Acct: [id number] Name: MARY ALICE GA Rep #: [id number] : 1950 From: Cesia Perry NP CASTING REPAIRER -C Age/Sex: 73/F Location: [facility] Status: Signed HPI Subjective Date of Service 06/17/24 Chief Complaint Breast ca on treatment History of Present Illness 73-year-old female with multiple chronic medical problems including alcoholic liver disease with ongoing alcohol consumption, atherosclerotic arterial disease, hypertension, postmenopausal bone loss, chronic lower extremities edema, nonhealing ulcer and a 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 Patient has not had a screening mammogram for years until May 2023 when she felt a painless lump in the left breast. May 10, 2023 diagnostic mammogram: IMPRESSION: 1.1 cm by 1.1 cm spiculated nodule in the deep upper lateral aspect of the left breast. Correlation with ultrasound is recommended. May 10, 2023 breast ultrasound: FINDINGS: LEFT Breast: There is a 9 mm x 11 mm x 9 mm hypoechoic irregular solid nodule at the 3:00 position of the breast at 7 cm from the nipple. A similar appearing nodule is seen at the 2:00 position of the breast and 9 cm from the nipple. This measures 7 mm x 4 mm x 5 mm. Increased vascularity is seen. Biopsies of both lesions recommended. IMPRESSION: 2 suspicious lesions are seen at the 3:00 and 2:00 position of the left breast as described. Biopsy recommended. May 15, 2023 procedure note: Through the same small incision I was able to identify the palpable lesion left breast 3 o'clock position +7 cm. Again local was instilled. A 14-gauge Monopty needle was advanced to prefire depth. Pre and post fire films were obtained. Single core was obtained. A coil clip was placed. The specimen was immediately placed in formalin The left axilla was inspected and identified at least 2 lymph nodes. One measured 1.49 cm in diameter. Again local was instilled and a small stab incisions created. 2 14-gauge Monopty needle core biopsies were obtained. Pre and post images obtained. The specimens were submitted in formalin. A coil clip was placed. May 15, 2023 pathology: MICROSCOPIC DIAGNOSIS A. Left breast tissue, 2 o???clock, 9 cm from nipple, core biopsy: Invasive ductal carcinoma, nuclear grade 2 (0.6 cm in greatest length). See comment. B. Left breast tissue, 3 o???clock, 7 cm from nipple, core biopsy: Invasive ductal carcinoma, nuclear grade 2 (1.0 cm in greatest length). Focal ductal carcinoma in situ. See comment. C. Left lymph node, core biopsy: Fragment of lymph node tissue, negative for metastatic carcinoma. ANTIBODY / CLONE RESULT Block A E-Cad (ECH-6) positive CK8 (75xyrqA08) positive Calponin-1 (QN625M) negative CK5-6 (D5 1684) negative P40 (BC28) negative P53 (DO-7) negative (null pattern) Ki-67 (30-9) positive, low ( 15%) MORPHOMETRIC ANALYSIS ER (clone 6F11) >95%, strong intensity KS (clone 16/1E2) >95%, strong intensity Her-2Neu (clone CB11) 1-2+ Block B E-Cad (ECH-6) positive CK8 (30upwuR27) positive Calponin-1 (OR534V) negative * CK5-6 (D5 1684) negative * P40 (BC28) negative * P53 (DO-7) positive, rare cells (wild type pattern) Ki-67 (30-9) positive * Positive in the area of DCIS. MORPHOMETRIC ANALYSIS ER (clone 6F11) >95%, strong intensity KS (clone 16/1E2) >95%, strong intensity Her-2Neu (clone CB11) 1-2+ Block C AE1-3 (AE1/AE3/PCK26) negative CK7 (OV-TL12/30) negative IN SITU HYBRIDIZATION (RYAN) FOR HER2 Specimen A Interpretation: Negative / Not Amplified HER2 : CEP-17 Ratio: 0.8 Average HER2 Signal: 1.4 Average CEP-17 Signal: 1.65 Number of Tumor Cells Scanned: 50 Specimen B Interpretation: Negative / Not Amplified HER2 : CEP-17 Ratio: 1.09 Average HER2 Signal: 2.35 Average CEP-17 Signal: 2.1 Number of Tumor Cells Scanned: 50 May 29, 2023 bone scan staging: IMPRESSION: 1. The increase in radiopharmaceutical concentration identified in the third lumbar vertebra and bilateral anterior seventh ribs is commensurate with trauma-fracture. 2. 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 3. There is no definitive typical scintigraphic evidence of multifocal osseous metastatic disease. May 31, [address] staging: IMPRESSION: 1. Mild cardiomegaly. No acute chest disease. 2. Cirrhosis. Indirect evidence of portal hypertension. 3. Cholelithiasis. 4. No acute abnormalities are seen. June 12, 2023 left mastectomy with sentinel lymph node biopsy followed by left axillary dissection: MICROSCOPIC DIAGNOSIS A. Left axillary (more content not included)... Normal [facility] SCREEN MAMM (CAD) W/ZANA UNI Grant 06-14-2024 SCREEN MAMM (CAD) W/ZANA UNI R [facility] Imaging Services [address] [place] [address] [id number] SCREEN MAMM (CAD) W/ZANA UNI R MR#: [id number] Acct: [id number] Name: MARY ALICE GA Rep #: [id number] : 1950 F 73 From: Nahum nieves MD PCP: Dr. 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 Routine annual screening examination (unilateral). PERTINENT HISTORY: Personal history of breast cancer. Prior left mastectomy. TECHNIQUE: Digital unilateral breast zana (3D mammographic acquisition) in the CC and MLO projections. 2-D mediolateral oblique (MLO) and craniocaudad (CC) views of both breasts were obtained. CAD: Full Field Digital Mammography with Computer Added Detection was performed. COMPARISON: Comparison is made with prior study June 24, 2019. FINDINGS: Breast Composition: The breasts are heterogeneously dense, which may obscure small masses. There are no dominant masses or suspicious calcifications. Stable secretory calcification. No other significant abnormalities are identified. There has been no significant change since the prior study. BI/SCREEN MAMM (CAD) W/ZANA UNI R IMPRESSION: Stable unilateral screening mammogram. Yearly follow-up mammogram recommended. (A) ASSESSMENT CATEGORY: BIRADS Category 2: Benign. A letter regarding these results will be sent to the patient by the facility within 30 days. Approximately 10% of breast cancers are not detected by mammography. A normal mammogram should not delay biopsy of a clinically suspicious abnormality. [id number] Electronically Signed: Nahum Kelley MD at 9:20 EDT , CC: SAMUEL Perry; Dr. Khanh Rodriguez MD Vault Clerk: Signed Normal [facility] CNOVon 06-12-2024 CNOV Office Visit (SPNMED ) -- MARY ALICE GA ([id number]) 1950 F Date Time Provider Department 06/12/24 10:20 AM MONSE MERLOS SPNMED During your visit today, we recorded the following information about you: Pulse Blood pressure Weight Height 52/minute 126/63 69 kg 1.575 m Monse Merlos PA-C 06/17/2024 7:38 PM Addendum [facility] [address] [address] 06/12/2024 ASSESSMENT AND PLAN: Assessment : Encounter Diagnosis ICD-10-CM 1. Degenerative scoliosis M41.50 CONSULT TO PHYSICAL THERAPY methocarbamol (ROBAXIN) 500 mg tablet 2. Lumbar radiculopathy M54.16 3. Chronic right-sided low back pain with right-sided sciatica M54.41 G89.29 Discussion: Ms. Ga is a 73-year-old female here for evaluation of low back pain and RLE symptoms. Low back pain is definitely predominant today. 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 She has had wound healing problems. She has LBP at L-S junction and bilat PSIS and tenderness over the GT bilat. 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 The patient reports that she had had an L3 wedge compression fracture. It is of unknown age and configuration. She was told this by an outside care facility that evaluated her with x-rays EXAM Highlights: Exam as noted below. Significant issues with walking and balance and steadiness on her feet as her primary finding along with fairly severe pain on palpation in the entire lumbosacral region and posterior pelvic bony prominences. The right foot was wrapped for wound care issues and she strongly favor that as she attempted to walk. She used a single post cane but was still quite unsteady. IMAGING: No spine imaging is available for review today. She had some plain radiographs done at [facility], but did not bring those here for review today. SUMMARY/PLAN: She will try to provide her outside lumbar plain radiographs for my future review She will start supervised PT as recommended here and then if she travels down to [place] as his her normal winter routine, she would picker the PT there and finish out her care and that region instead. Otherwise here, I would have her finish PT and x-rays be documented in her chart and then we could consider MRI study and possible injections in the future if a lesion that corresponds to her symptoms is identified Plan : REFERAL FOR SERVICES: -Physical therapy will be instituted. MEDICATIONS: -See prescribed medication list for this encounter. ACTIVITY RECOMMENDATIONS: -The patient is encouraged to avoid bed rest and maintain normal activity. FOLLOW-UP: -The patient is instructed to return after six weeks of therapy. -The patient is instructed to return sooner if problems warrant. This document has been created with the use of voice recognition technology. It may contain inaccuracies: (e.g. misspellings, inaccurate syntax or word sense) that have escaped review. Time spent: 50 minutes today with this patient visit. This includes [id number] time, review of chart records regarding conservative care history, spine-pertinent imaging, and communication/care coordination with referring provider, problem-specific history-taking and counseling/education regarding treatment options. cc: Marisela Mccarty [address] [address] Results of consultation to be transmitted via electronic medical record for those providers who practice within [facility] or with access to [employer] via MD Connect, or via letter. ########################## ########################## #################### CHIEF COMPLAINT: Patient is here for the lower back pain, both hips, and right upper leg pain. Has this pain for years but in the last 2 months, this pain got worse. Level of the pain is at 8/10. Sometimes pain will shoot down to the right upper leg. Laying flat on her back, helps her with the pain. Heating pad helps too. Pain wakes her up. HPI: see Discussion above History of bowel or bladder dysfunction (not IBS or constipation): No History of previous spinal surgery: No History of spinal fracture: Yes, L3 Work Status: retired NON-OPERATIVE CARE: Medication(s): She has tried the following for relief of her symptoms: OTC Tylenol Ultram/tramadol Neurontin/gabapentin Physical Therapy: She has not had physical therapy for her current symptoms. Spinal Injections: She has not gotten prior spinal injections. Other: None Current Outpatient Medications Medication Sig Dispense Refill gabapentin (NEURONTIN) 300 mg (more content not included)... Normal [facility] CNTHERAPYon 06-12-2024 CNTHERAPY Normal [facility] Partial Thromboplast Timeon 05-31-2024 aPTT Coag (Bld) [Time] 38.4 s High 24.1-36.2 [facility] Comment on above: Performed By: #### L 300.3900, L300.4310, L100.1900 #### [facility] [address] [place], [address] Platelet Counton 05-31-2024 Platelets (Bld) [#/Vol] 167 10*3/uL Normal 150-450 [facility] Comment on above: Performed By: #### L 300.3900, L300.4310, L100.1900 #### [facility] [address] [place], [address] Procedure Reporton 4 Procedure Report [facility] Medical Records Department [address] [place] [address] Procedure Report 05/31/24 1052 MR#: [id number] Acct: [id number] Name: MARY ALICE GA Rep #: [id number] : 1950 73 From: Yamile Glez 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 Khanh Rodriguez MD Status:REG CLI Location: CT Procedure Report Date of Procedure: 05/31/24 Assessment Plan Assessment/Plan (1) Cirrhosis: QUALIFIERS: Hepatic cirrhosis type: alcoholic cirrhosis Ascites presence: without ascites Qualified Code(s): K70.30 - Alcoholic cirrhosis of liver without ascites PLAN: PROCEDURE: CT DIRECTED CORE LIVER BIOPSY ORDERING PROVIDER: Dr. Davila INDICATION: Female, 73 years old. Liver cirrhosis. PROVIDER: VIANCA Ayers CONSENT: Written informed consent was obtained having explained the risks, benefits and alternatives in detail with the patient who accepted the risks and agreed to proceed. Laboratory review and clinical assessment was performed. PRE-PROCEDURE SEDATION ASSESSMENT: Current history and physical dictated by referring provider and reviewed. No clinical changes since date of exam. Patient has a Mallampati Score of Class 1 and ASA Class of 2. PROCEDURAL SEDATION PROTOCOL: The Drugs used were: 2 mg Versed, IV, and 50 mcg Fentanyl, IV. The sedation time was: 22 minutes, starting at 8:58 AM and terminated at 9:20 AM. The procedural sedation protocol was independently monitored by the department nurse. RADIATION DOSAGE (If Supplied By Facility): CTDIvol = 15.77 mGy, DLP = 305.26 mGycm Individualized dose optimization techniques were used for this CT. TECHNIQUE The patient was placed in a supine position. Using CT image guidance with image documentation, a suitable location in the right lobe of the liver was identified. The skin surface was prepped with chlorhexidine and draped in a sterile fashion. 2% lidocaine was used for local anesthesia. Using an anterior approach, puncture of the liver was uneventful with an 18-gauge core needle system. 3, 18- gauge core samples were obtained, and submitted in formalin to the pathologist for further assessment. The needle was removed. An occlusive sterile dressing was applied. Patient tolerated the procedure well, and returned to the holding bay for nursing monitoring. IMPRESSION: CT directed core needle biopsy of the liver, using CT image guidance with image documentation as described. Procedural Sedation protocol utilized with independent monitoring. Procedures Radiology Radiology US Procedures: 91030 Liver Biopsy Multi Select Codes Radiology Radiology CT Procedures: [id number] CT guidance parenchymal tissue 05/31/24 1055 Cosigner Signature (if applicable): CC: SAMUEL Glez; Dr. Khanh Rodriguez MD; Johny Davila DO Signed Normal [facility] Prothrombin Time w/INRon INR Coag (PPP) [Relative time] 1.3 {INR} Normal [facility] Comment on above: Performed By: #### L 300.3900, L300.4310, L100.1900 #### [facility] [address] [place], [place], [id number] PT Coag (PPP) [Time] 15.8 s High 11.7-14.9 [facility] Comment on above: Performed By: #### L 300.3900, L300.4310, L100.1900 #### [facility] [address] [place], [address] Trichrome (control)on 2023 Trichrome (control) ------ Patient Age/Sex Location Account Attending Physician MARY ALICE GA 73/F CT [id number] Johny Davila DO Specimen: [id number] Received: 05/31/24-120 Status: KATHRYN Estrella Num: [id number] Spec Type: ASP RAD Subm Dr: Johny Davila DO HEADER OPERATION: CT guided liver biopsy PRE-OP DIAGNOSIS: Cirrhosis TISSUE SUBMITTED: 18 gauge x 3 biopsy MICROSCOPIC DIAGNOSIS Liver, needle core biopsy: Cirrhosis. Chronic hepatitis, Grade 3 (modified Knodell scoring system). See microscopic description and comment. . 06/03/2024 MICROSCOPIC DESCRIPTION Trichrome and reticulin stains reveal broad band fibrosis consistent with cirrhosis. PAS with PASD stains do not reveal accumulation of abnormal proteins. Iron stain does not reveal accumulation of iron in hepatic parenchyma. All matched controls are appropriate. GROSS DESCRIPTION Received is one container labeled with the patient's name and not further designated. The specimen consists of multiple elongated fragments of arroyo soft tissue that in aggregate measure 1.5 x 0.2 x 0.1 cm. The specimen is totally submitted in one cassette. . 05/31/2024 TC:3 CPT:82101,96359r9 Patient Age/Sex Location Account Attending Physician MARY ALICE GA 73/F [place] [id number] Johny Davila, DO Signed (signature on file) Dr. Ronal Kenyon, 06/03/24 1216 Normal [facility] Comment on above: Performed By: #### L 501.4405, L100.0100, L501.1105 #### [facility] [address], [address] CNTHERAPYon 04-30-2024 CNTHERAPY OT/PT/Speech Visit ( PTWS) -- MARY ALICE GA Chucky ([id number]) 1950 F Date Time Provider Department 04/30/24 8:15 AM LISETH ALANIS PTWS Date Time Provider Department [place] 04/30/2024 8:15 AM [id number] ALANIS PTWS Eliot Gerardo Reason for Visit: PT Discharge [752] Primary Visit Diagnosis:Other malaise [R53.81] Allergies As of Date: 04/30/2024 Noted Allergy Reaction CLARITHROMYCIN (BULK) 06/15/2010 14 - Other: See Comments Comments: pancrititis STEROIDS (BETAMETHASONE DIPROPION*06/15/2010 5 - Intolerance Comments: pancritis Date Reviewed: 04/23/2024 Reviewed by: Rhina Pozo OCCA - Fully Assessed Prescriptions as of 04/30/2024 - LASIX 40 mg tablet Take 40 mg by mouth two times a day. - acetaminophen (TYLENOL) 325 mg cap Take by mouth. - alendronate (FOSAMAX) 70 mg tablet Take 1 tablet by mouth one time a week. - anastrozole (ARIMIDEX) 1 mg tablet - pantoprazole DR (PROTONIX) 40 mg tablet Take 1 tablet by mouth once daily. - nadolol (CORGARD) 20 mg tablet TAKE ONE TABLET BY MOUTH EVERY DAY - potassium chloride ER (K-DUR, KLOR-CON) 20 mEq tablet Take 20 mEq by mouth two times a day. - diclofenac sodium (VOLTAREN) 1 % topical gel Apply 2 g to affected area four times daily as needed. - spironolactone (ALDACTONE) 50 mg tablet Take 1 tablet by mouth twice daily. - furosemide (LASIX) 20 mg tablet Take 2 tablets by mouth twice daily. - MILK THISTLE ORAL Take by mouth once daily. - ibuprofen (MOTRIN) 200 mg tablet Take 400 mg by mouth three times daily. Normal [facility] CNOVon 04-23-2024 CNOV Office Visit (VASSWS ) -- MARY ALICE GA ([id number]) 1950 F Date Time Provider Department 04/23/24 10:30 AM GT YIN During your visit today, we recorded the following information about you: Pulse Blood pressure 59/minute 126/68 Gt Yin, 05/23/2024 4:21 PM Signed [facility] [place] DEPARTMENT OF VASCULAR SURGERY OUTPATIENT VISIT DATE April 23, 2024 OUTPATIENT VISIT TYPE ESTABLISHED SERVICE DATE: 04/23/2024 SERVICE TIME: 11:05 AM PRIMARY CARE PHYSICIAN: Khanh Rodriguez MD HISTORY OF PRESENT ILLNESS: Ms. Ga is a 73 year old female who presents today for a vascular surgery follow-up visit for venous insufficiency. She has been seeing Amanda Soto and has noticed progress in wound healing. She is here to follow up after vascular lab PAST MEDICAL HISTORY No date: Arthritis No date: Cirrhosis (HCC) No date: Cirrhosis (HCC) No date: Edema No date: Flexural atopic dermatitis No date: Inflamed seborrheic keratosis No date: Liver disease No date: Multiple nevi 01/24/08: PMH - PAST MEDICAL HISTORY OF Comment: pancreatitis No date: PMH - PAST MEDICAL HISTORY OF Comment: htn No date: PMH - PAST MEDICAL HISTORY OF Comment: hx varicose veins 05/17/08: PMH - PAST MEDICAL HISTORY OF Comment: pulmonary embolus- postop left TKA No date: Seborrheic keratoses No date: Solar lentiginosis PAST SURGICAL HISTORY 10/2020: PARTIAL HIP REPLACEMENT; Left 09/04/1991: PAST SURGICAL HISTORY OF Comment: JULIETA/BSO for fibroids No date: PAST SURGICAL HISTORY OF Comment: tonsillectomy 05/14/2008: PAST SURGICAL HISTORY OF Comment: Left TKA 08/29/2011: PAST SURGICAL HISTORY OF Comment: R TKA SOCIAL HISTORY Social History Tobacco Use Smoking status: Never Smokeless tobacco: Never Substance Use Topics Alcohol use: Yes Comment: 3 glasses of wine daily-quit 05/2016 Drug use: No MEDICATIONS: LASIX 40 mg tablet Take 40 mg by mouth two times a day. acetaminophen (TYLENOL) 325 mg cap Take by mouth. alendronate (FOSAMAX) 70 mg tablet Take 1 tablet by mouth one time a week. anastrozole (ARIMIDEX) [address] (PROTONIX) 40 mg tablet Take 1 tablet by mouth once daily. nadolol (CORGARD) 20 mg tablet TAKE ONE TABLET BY MOUTH EVERY DAY potassium chloride ER (K-DUR, KLOR-CON) 20 mEq tablet Take 20 mEq by mouth two times a day. diclofenac sodium (VOLTAREN) 1 % topical gel Apply 2 g to affected area four times daily as needed. spironolactone (ALDACTONE) 50 mg tablet Take 1 tablet by mouth twice daily. furosemide (LASIX) 20 mg tablet Take 2 tablets by mouth twice daily. MILK THISTLE ORAL Take by mouth once daily. (Patient not taking: Reported on 02/27/2024) ibuprofen (MOTRIN) 200 mg tablet Take 400 mg by mouth three times daily. (Patient not taking: Reported on 02/27/2024) ALLERGIES: ALLERGIES Allergen Reactions Clarithromycin (Bul* Other: See Comments pancrititis Steroids [Betametha* Intolerance pancritis PHYSICAL EXAM: BP 126/68 (BP Site: Right Arm, BP Position: Sitting, BP Cuff Size: Regular Adult) Pulse (!) 59 SpO2 100% Gen- no distress Ext- dressings clean and dry Diagnostic tests reviewed for today's visit: Most recent labs Most recent imaging Venous Reflux RIGHT SIDE - DEEP VEINS Negative for acute deep vein thrombosis in vessels visualized. RIGHT SIDE - SUPERFICIAL VEINS Positive for valvular incompetency in the great saphenous vein. Visualized from the junction to proximal thigh. Approximate lenth 13 cm. -History of ablation. Varicosites noted anterior mid to distal thigh and lateral knee. Two perforators that appear competent noted proximal/mid calf and one at mid calf. Varicosities/branches noted in the calf. Negative for valvular incompetency in the small saphenous vein. Chronic post-thrombotic change in the small saphenous vein at the proximal calf. LEFT SIDE - DEEP VEINS Negative for acute deep vein thrombosis in vessels visualized. LEFT SIDE - SUPERFICIAL VEINS Negative for valvular incompetency in the great saphenous vein. -Possible history of ablation/phlebectomy. Vein not visualized from mid thigh through proximal calf. Varicosities noted throughout. Acute superficial thrombophlebitis in the varicosity off the great saphenous vein at the knee crease. An incompetent set up mold technician is noted at mid calf and another at distal calf. Negative for valvular incompetency in the anterior accessory great saphenous vein. Varicosities arise proximal thigh and course along anterior thigh. Negative for valvular incompetency in the small saphenous vein. IMPRESSION: Ms. Ga is a 73 year old female with venous insufficiency, venous ulceration, venous reflux . PLAN and RECOMMENDATIONS: Doing well. Wounds progressing Recommend follow up in January She may benefit fr (more content not included)... Normal [facility] CNTHERAPYon 04-23-2024 CNTHERAPY OT/PT/Speech Visit ( PTWS) -- MARY ALICE GA F ([id number]) 1950 F Date Time Provider Department 04/23/24 2:15 PM LISETH ALANIS PTWS Date Time Provider Department [place] 04/23/2024 2:15 PM [id number] ALANIS PTWS Eliot Carrillo Reason for Visit: PT Progress Note [1596] Primary Visit Diagnosis:Other malaise [R53.81] Allergies As of Date: 04/23/2024 Noted Allergy Reaction CLARITHROMYCIN (BULK) 06/15/2010 14 - Other: See Comments Comments: pancrititis STEROIDS (BETAMETHASONE DIPROPION*06/15/2010 5 - Intolerance Comments: pancritis Date Reviewed: 04/23/2024 Reviewed by: Rhina Pozo OCCA - Fully Assessed Prescriptions as of 04/23/2024 - LASIX 40 mg tablet Take 40 mg by mouth two times a day. - acetaminophen (TYLENOL) 325 mg cap Take by mouth. - alendronate (FOSAMAX) 70 mg tablet Take 1 tablet by mouth one time a week. - anastrozole (ARIMIDEX) 1 mg tablet - pantoprazole DR (PROTONIX) 40 mg tablet Take 1 tablet by mouth once daily. - nadolol (CORGARD) 20 mg tablet TAKE ONE TABLET BY MOUTH EVERY DAY - potassium chloride ER (K-DUR, KLOR-CON) 20 mEq tablet Take 20 mEq by mouth two times a day. - diclofenac sodium (VOLTAREN) 1 % topical gel Apply 2 g to affected area four times daily as needed. - spironolactone (ALDACTONE) 50 mg tablet Take 1 tablet by mouth twice daily. - furosemide (LASIX) 20 mg tablet Take 2 tablets by mouth twice daily. - MILK THISTLE ORAL Take by mouth once daily. - ibuprofen (MOTRIN) 200 mg tablet Take 400 mg by mouth three times daily. Normal [facility] CNTHERAPYon 04-16-2024 CNTHERAPY OT/PT/Speech Visit ( PTWS) -- MARY ALICE GA F ([id number]) 1950 F Date Time Provider Department 04/16/24 10:30 AM LISETH ALANIS PTLUTHER Date Time Provider Department Center 04/16/2024 10:30 AM [id number] ALANIS PTLUTHER Carrillo Reason for Visit: Physical Therapy [503] Primary Visit Diagnosis:Other malaise [R53.81] Allergies As of Date: 04/16/2024 Noted Allergy Reaction CLARITHROMYCIN (BULK) 06/15/2010 14 - Other: See Comments Comments: pancrititis STEROIDS (BETAMETHASONE DIPROPION*06/15/2010 5 - Intolerance Comments: pancritis Date Reviewed: 04/02/2024 Reviewed by: Latonia Fernandez OCCA - Fully Assessed Prescriptions as of 04/16/2024 - LASIX 40 mg tablet Take 40 mg by mouth two times a day. - acetaminophen (TYLENOL) 325 mg cap Take by mouth. - alendronate (FOSAMAX) 70 mg tablet Take 1 tablet by mouth one time a week. - anastrozole (ARIMIDEX) 1 mg tablet - pantoprazole DR (PROTONIX) 40 mg tablet Take 1 tablet by mouth once daily. - nadolol (CORGARD) 20 mg tablet TAKE ONE TABLET BY MOUTH EVERY DAY - potassium chloride ER (K-DUR, KLOR-CON) 20 mEq tablet Take 20 mEq by mouth two times a day. - diclofenac sodium (VOLTAREN) 1 % topical gel Apply 2 g to affected area four times daily as needed. - spironolactone (ALDACTONE) 50 mg tablet Take 1 tablet by mouth twice daily. - furosemide (LASIX) 20 mg tablet Take 2 tablets by mouth twice daily. - MILK THISTLE ORAL Take by mouth once daily. - ibuprofen (MOTRIN) 200 mg tablet Take 400 mg by mouth three times daily. -- [employer]: Therapy (PT/OT/Speech/Resp) ID: [id number] 04/16/2024 11:01 AM Author: LISETH ALNAIS Signed by LISETH ALANIS PT on 04/16/2024 at 11:01 AM Document text: Program_ID:[id number] Access Code: [email or web address] URL: [email or web address] Date: 04-16-2024 Prepared By: Liseth Alanis Program Notes Exercises - Lateral Shift Correction at Wall - 2-3 x daily - 7 x weekly - 4 sets - 10 reps Normal [facility] THERAPY NTon 04-16-2024 THERAPY NT HNO ID: [id number] Author: LISETH ALANIS, LIDIA Service: ? Author Type: Physical Therapist Type: Therapy (PT/OT/Speech/Resp) Filed: 04/16/2024 11:01 Note Text: Program_ID:[id number] Access Code: [email or web address] URL: [email or web address] Date: 04-16-2024 Prepared By: Liseth Alanis Program Notes Exercises - Lateral Shift Correction at Wall - 2-3 x daily - 7 x weekly - 4 sets - 10 reps Normal [facility] CNOVon 04-03-2024 CNOV Office Visit (VSLWST ) -- MARY ALICE GA ([id number]) 1950 F Date Time Provider Department 04/03/24 2:30 PM [facility] WSTR VSLWST During your visit today, we recorded the following information about you: Referring Provider: GT YIN [[id number]] Allergies As of Date: 04/03/2024 Noted Allergy Reaction CLARITHROMYCIN (BULK) 06/15/2010 14 - Other: See Comments Comments: pancrititis STEROIDS (BETAMETHASONE DIPROPION*06/15/2010 5 - Intolerance Comments: pancritis Date Reviewed: 04/02/2024 Reviewed by: Latonia Fernandez OCCA - Fully Assessed Visit Diagnoses:Venous (peripheral) insufficiency [I87.2] Symptomatic varicose veins of both lower extremities [I83.893] Order(s):US VENOUS INCOMPETENCY [facility] [[id number]] Order #: [id number]. #[id number] Prescriptions as of 05/22/2024 - LASIX 40 mg tablet Take 40 mg by mouth two times a day. - acetaminophen (TYLENOL) 325 mg cap Take by mouth. - alendronate (FOSAMAX) 70 mg tablet Take 1 tablet by mouth one time a week. - anastrozole (ARIMIDEX) 1 mg tablet - pantoprazole DR (PROTONIX) 40 mg tablet Take 1 tablet by mouth once daily. - nadolol (CORGARD) 20 mg tablet TAKE ONE TABLET BY MOUTH EVERY DAY - potassium chloride ER (K-DUR, KLOR-CON) 20 mEq tablet Take 20 mEq by mouth two times a day. - diclofenac sodium (VOLTAREN) 1 % topical gel Apply 2 g to affected area four times daily as needed. - spironolactone (ALDACTONE) 50 mg tablet Take 1 tablet by mouth twice daily. - furosemide (LASIX) 20 mg tablet Take 2 tablets by mouth twice daily. - MILK THISTLE ORAL Take by mouth once daily. - ibuprofen (MOTRIN) 200 mg tablet Take 400 mg by mouth three times daily. Problem List As Of Date 04/03/2024 Noted Resolved VENOUS THROMBOSIS NOS [I74.9] 06/03/2008 Anxiety [F41.9] 04/28/2011 Hand swelling [M79.89] 04/28/2011 Weight loss [R63.4] 04/28/2011 Hypokalemia [E87.6] 05/02/2011 Abnormal LFTs [R79.89] 05/02/2011 Umbilical hernia without obstruction or gangren*12/05/2016 Alcoholic cirrhosis of liver with ascites (HCC)*05/12/2017 Secondary esophageal varices with bleeding (HCC*05/12/2017 Other malaise [R53.81] 01/24/2024 Venous ulcer (HCC) [I83.009, L97.909] 03/04/2024 Venous (peripheral) insufficiency [I87.2] 03/04/2024 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] 03/04/2024 Encounter Status:Closed by DOUGLAS STARR CMA on 05/22/24 Normal [facility] VENOUS INCOMPETENCY ALBERT V LABon 04-03-2024 VENOUS INCOMPETENCY ALBERT VAS LAB Non-Invasive Vascular Laboratory [facility] Venous Valvular Incompetency Bilateral/Complete Date of service/time: 04/03/2024 2:35:48 PM Name: MRS. MARY ALICE GA Date of : 1950 Age: 73 years Gender: F Clinical Indication Lower extremity swelling, varicose veins, chronic venous insufficiency, pigmentation changes of the lower extremities, symptoms of postural discomfort, status post venous ablation and status post vein stripping. Ulceration right leg. TECHNIQUE -------- A venous duplex ultrasound examination was performed, including grayscale imaging with compression maneuvers and color Doppler and spectral Doppler examination with augmentation maneuvers and response to respiration of the below mentioned veins. FINDINGS -------- Patient position reverse Trendelenburg 45 degrees. RIGHT SIDE Method of augmentation: manual. Common femoral vein Doppler: normal flow. Compression: normal. Femoral vein Doppler: normal flow. Compression: normal. Popliteal vein Doppler: normal flow. Compression: normal. Great saphenous vein Compression: normal. Small saphenous vein Compression: abnormal. RIGHT GREAT SAPHENOUS VEIN Saphenofemoral junction Augmentation reflux greater than or equal to 0.5 second. Size 0.76 cm. Proximal thigh Augmentation reflux greater than or equal to 0.5 second. Size 0.68 cm. RIGHT SMALL SAPHENOUS VEIN Mid calf Augmentation reflux none. Size 0.28 cm. Distal calf Augmentation reflux none. Size 0.38 cm. RIGHT BRANCHES AND PERFORATORS Varicosity mid thigh Augmentation reflux greater than or equal to 0.5 second. Size 0.37 cm. [employer] vein proximal/mid calf Augmentation reflux none. Valsalva reflux none. Size 0.35 cm. Depth 0.94 cm. [employer] vein proximal/mid calf Augmentation reflux none. Valsalva reflux none. Size 0.22 cm. Depth 0.58 cm. [employer] vein mid calf Augmentation reflux none. Size 0.58 cm. Depth 1.58 cm. LEFT SIDE Method of augmentation: manual. Common femoral vein Doppler: normal flow. Compression: normal. Femoral vein Doppler: normal flow. Compression: normal. Popliteal vein Doppler: normal flow. Compression: normal. Great saphenous vein Compression: normal. Small saphenous vein Compression: normal. Varicosity off the great saphenous vein Compression: abnormal. LEFT GREAT SAPHENOUS VEIN Saphenofemoral junction Augmentation reflux none. Valsalva reflux none. Size 0.79 cm. Proximal thigh Size 0.36 cm. Mid calf Augmentation reflux none. Size 0.32 cm. Distal calf Augmentation reflux none. Size 0.35 cm. LEFT SMALL SAPHENOUS VEIN Mid calf Augmentation reflux none. Size 0.26 cm. Distal calf Augmentation reflux none. Size 0.31 cm. LEFT ANTERIOR ACCESSORY GREAT SAPHENOUS VEIN Saphenous junction Augmentation reflux none. Valsalva reflux none. Size 0.48 cm. Proximal thigh Augmentation reflux none. Valsalva reflux none. Size 0.41 cm. Mid thigh Size 0.32 cm. LEFT BRANCHES AND PERFORATORS Varicosity knee Size 0.43 cm. [employer] vein mid calf Augmentation reflux greater than or equal to 0.35 second. Size 0.33 cm. Depth 0.99 cm. [employer] vein distal calf Valsalva reflux greater than or equal to 0.5 second. Size 0.45 cm. Depth 0.78 cm. Varicosity distal calf Augmentation reflux none. Size 0.46 cm. Varicosity proximal thigh Augmentation reflux greater than or equal to 0.5 second. Size 0.71 cm. IMPRESSION RIGHT SIDE - DEEP VEINS Negative for acute deep vein thrombosis in vessels visualized. RIGHT SIDE - SUPERFICIAL VEINS Positive for valvular incompetency in the great saphenous vein. Visualized from the junction to proximal thigh. Approximate lenth 13 cm. -History of ablation. Varicosites noted anterior mid to distal thigh and lateral knee. Two perforators that appear competent noted proximal/mid calf and one at mid calf. Varicosities/branches noted in the calf. Negative for valvular incompetency in the small saphenous vein. Chronic post-thrombotic change in the small saphenous vein at the proximal calf. LEFT SIDE - DEEP VEINS Negative for acute deep vein thrombosis in vessels visualized. LEFT SIDE - SUPERFICIAL VEINS Negative for valvular incompetency in the great saphenous vein. -Possible history of ablation/phlebectomy. Vein not visualized from mid thigh through proximal calf. Varicosities noted throughout. Acute superficial thrombophlebitis in the varicosity off the great saphenous vein at the knee crease. An incompetent set up mold technician is noted at mid calf and another at distal calf. Negative for valvular incompetency in the anterior accessory great saphenous vein. Varicosities arise proximal thigh and course along anterior thigh. Negative for valvular incompetency in the small saphenous vein. Technologist: Daphnie Evans (more content not included)... Normal [facility] US Vein - bilateralon 2023 Non-Invasive Vascular Laboratory [facility] Venous Valvular Incompetency Bilateral/Complete Date of service/time: 04/03/2024 2:35:48 PM Name: MRS. MARY ALICE GA Date of : 1950 Age: 73 years Gender: F Clinical Indication Lower extremity swelling, varicose veins, chronic venous insufficiency, pigmentation changes of the lower extremities, symptoms of postural discomfort, status post venous ablation and status post vein stripping. Ulceration right leg. TECHNIQUE -------- A venous duplex ultrasound examination was performed, including grayscale imaging with compression maneuvers and color Doppler and spectral Doppler examination with augmentation maneuvers and response to respiration of the below mentioned veins. FINDINGS -------- Patient position reverse Trendelenburg 45 degrees. RIGHT SIDE Method of augmentation: manual. Common femoral vein Doppler: normal flow. Compression: normal. Femoral vein Doppler: normal flow. Compression: normal. Popliteal vein Doppler: normal flow. Compression: normal. Great saphenous vein Compression: normal. Small saphenous vein Compression: abnormal. RIGHT GREAT SAPHENOUS VEIN Saphenofemoral junction Augmentation reflux greater than or equal to 0.5 second. Size 0.76 cm. Proximal thigh Augmentation reflux greater than or equal to 0.5 second. Size 0.68 cm. RIGHT SMALL SAPHENOUS VEIN Mid calf Augmentation reflux none. Size 0.28 cm. Distal calf Augmentation reflux none. Size 0.38 cm. RIGHT BRANCHES AND PERFORATORS Varicosity mid thigh Augmentation reflux greater than or equal to 0.5 second. Size 0.37 cm. [employer] vein proximal/mid calf Augmentation reflux none. Valsalva reflux none. Size 0.35 cm. Depth 0.94 cm. [employer]er vein proximal/mid calf Augmentation reflux none. Valsalva reflux none. Size 0.22 cm. Depth 0.58 cm. [employer]er vein mid calf Augmentation reflux none. Size 0.58 cm. Depth 1.58 cm. LEFT SIDE Method of augmentation: manual. Common femoral vein Doppler: normal flow. Compression: normal. Femoral vein Doppler: normal flow. Compression: normal. Popliteal vein Doppler: normal flow. Compression: normal. Great saphenous vein Compression: normal. Small saphenous vein Compression: normal. Varicosity off the great saphenous vein Compression: abnormal. LEFT GREAT SAPHENOUS VEIN Saphenofemoral junction Augmentation reflux none. Valsalva reflux none. Size 0.79 cm. Proximal thigh Size 0.36 cm. Mid calf Augmentation reflux none. Size 0.32 cm. Distal calf Augmentation reflux none. Size 0.35 cm. LEFT SMALL SAPHENOUS VEIN Mid calf Augmentation reflux none. Size 0.26 cm. Distal calf Augmentation reflux none. Size 0.31 cm. LEFT ANTERIOR ACCESSORY GREAT SAPHENOUS VEIN Saphenous junction Augmentation reflux none. Valsalva reflux none. Size 0.48 cm. Proximal thigh Augmentation reflux none. Valsalva reflux none. Size 0.41 cm. Mid thigh Size 0.32 cm. LEFT BRANCHES AND PERFORATORS Varicosity knee Size 0.43 cm. [employer]er vein mid calf Augmentation reflux greater than or equal to 0.35 second. Size 0.33 cm. Depth 0.99 cm. [employer]er vein distal calf Valsalva reflux greater than or equal to 0.5 second. Size 0.45 cm. Depth 0.78 cm. Varicosity distal calf Augmentation reflux none. Size 0.46 cm. Varicosity proximal thigh Augmentation reflux greater than or equal to 0.5 second. Size 0.71 cm. IMPRESSION RIGHT SIDE - DEEP VEINS Negative for acute deep vein thrombosis in vessels visualized. RIGHT SIDE - SUPERFICIAL VEINS Positive for valvular incompetency in the great saphenous vein. Visualized from the junction to proximal thigh. Approximate lenth 13 cm. -History of ablation. Varicosites noted anterior mid to distal thigh and lateral knee. Two perforators that appear competent noted proximal/mid calf and one at mid calf. Varicosities/branches noted in the calf. Negative for valvular incompetency in the small saphenous vein. Chronic post-thrombotic change in the small saphenous vein at the proximal calf. LEFT SIDE - DEEP VEINS Negative for acute deep vein thrombosis in vessels visualized. LEFT SIDE - SUPERFICIAL VEINS Negative for valvular incompetency in the great saphenous vein. -Possible history of ablation/phlebectomy. Vein not visualized from mid thigh through proximal calf. Varicosities noted throughout. Acute superficial thrombophlebitis in the varicosity off the great saphenous vein at the knee crease. An incompetent set up mold technician is noted at mid calf and another at distal calf. Negative for valvular incompetency in the anterior accessory great saphenous vein. Varicosities arise proximal thigh and course along anterior thigh. Negative for valvular incompetency in the small sapheno (more content not included)... [facility] CNOVon 04-02-2024 CNOV Office Visit (ORMDNA ) -- MARY ALICE GA ([id number]) 1950 F Date Time Provider Department 04/02/24 1:00 PM MARISELA MCCARTY During your visit today, we recorded the following information about you: Weight Height 69 kg 1.575 m Marisela Mccarty MD 04/02/2024 4:29 PM Signed Orthopaedic Office Note: April 02, 2024 4:24 PM Mary Alice Ga 73 year old History: Mary Alice is here for evaluation of her left hip. She has a known history of substantial lumbar scoliosis, likely degenerative She had a femoral neck fracture 3 years ago in [place] and was treated with a uncemented hemiarthroplasty Her primary complaint is walking uneven, crooked, a perceived leg length discrepancy and loss of balance She has some discomfort but is more of a dull ache Subjective: See above Updated ROS: No changes Updated Exam: Left lower Extremity Left lower extremity neurovascularly intact Tolerates arcs of motion of the hip which are not very painful Mild tenderness to palpation over the trochanter Leg lengths are within 5 to 6 mm of one another Negative [place] Updated Imaging: Hemiarthroplasty in appropriate position alignment Leg length discrepancy 5 to 6 mm measured on imaging Assessment and Plan: I had an honest discussion with her today regarding her left hip. She had a hemiarthroplasty performed, and I believe her leg length discrepancy is within 5 to 6 mm both clinically and radiographically. I would not advise her to have revision surgery for this alone. She does have substantial lumbar degenerative scoliosis visible on x-rays in 2017. She has not been treated for this. I believe some of her obliquity is likely coming from the sexually. I have discussed with her directly today and she would like to see a spine provider which I provided a referral. She does have increased offset of the left hip, which is different from leg length, and again would not be a target for revision surgery. I do not believe conversion to a total hip would benefit her currently because she is not having true intra-articular groin pain. I spent a total of approximately 35 minutes on the date of the service which included preparing to see the patient, [id number] patient care, completing clinical documentation, obtaining and/or reviewing separately obtained history, performing a medically appropriate examination, counseling and educating the patient/family/caregiver, ordering medications, tests, or procedures, communicating with other HCPs (not separately reported), independently interpreting results (not separately reported), communicating results to the patient/family/caregiver, and care coordination (not separately reported). Marisela Mccarty MD Orthopaedic Surgery Allergies As of Date: 04/02/2024 Noted Allergy Reaction CLARITHROMYCIN (BULK) 06/15/2010 14 - Other: See Comments Comments: pancrititis STEROIDS (BETAMETHASONE DIPROPION*06/15/2010 5 - Intolerance Comments: pancritis Date Reviewed: 04/02/2024 Reviewed by: Latonia Fernandez OCCA - Fully Assessed Reason for Visit: New [390670] Pain [78] Primary Visit Diagnosis:S/P hip hemiarthroplasty [Z96.649] Other Visit Diagnosis:Degenerative scoliosis [M41.50] Order(s):[facility] TO [facility] [179584] Order #: [id number]: 1 FUTURE Prescriptions as of 04/02/2024 - LASIX 40 mg tablet Take 40 mg by mouth two times a day. - acetaminophen (TYLENOL) 325 mg cap Take by mouth. - alendronate (FOSAMAX) 70 mg tablet Take 1 tablet by mouth one time a week. - anastrozole (ARIMIDEX) 1 mg tablet - pantoprazole DR (PROTONIX) 40 mg tablet Take 1 tablet by mouth once daily. - nadolol (CORGARD) 20 mg tablet TAKE ONE TABLET BY MOUTH EVERY DAY - potassium chloride ER (K-DUR, KLOR-CON) 20 mEq tablet Take 20 mEq by mouth two times a day. - diclofenac sodium (VOLTAREN) 1 % topical gel Apply 2 g to affected area four times daily as needed. - spironolactone (ALDACTONE) 50 mg tablet Take 1 tablet by mouth twice daily. - furosemide (LASIX) 20 mg tablet Take 2 tablets by mouth twice daily. - MILK THISTLE ORAL Take by mouth once daily. - ibuprofen (MOTRIN) 200 mg tablet Take 400 mg by mouth three times daily. Problem List As Of Date 04/02/2024 Noted Resolved VENOUS THROMBOSIS NOS [I74.9] 06/03/2008 Anxiety [F41.9] 04/28/2011 Hand swelling [M79.89] 04/28/2011 Weight loss [R63.4] 04/28/2011 Hypokalemia [E87.6] 05/02/2011 Abnormal LFTs [R79.89] 05/02/2011 Umbilical hernia without obstruction or gangren*12/05/2016 Alcoholic cirrhosis of liver with ascites (HCC)*05/12/2017 Secondary esophageal varices with bleeding (HCC*05/12/2017 Other malaise [R53.81] 01/24/2024 Venous ulcer (HCC) [I83.009, L97.909] 03/04/2024 Venous (peripheral) insufficiency [I87.2] 03/04/2024 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] 03/04/2024 Encounter Number: [id number] (more content not included)... Normal [facility] XR Hip - left AP and Lateral on 04-02-2024 IMPRESSION: Findings as discussed in results portion of report Vault Clerk: ABDIEL Transcribe Date/Time: Apr 02 2024 2:38P Dictated by : ZOHREH HURTADO DO This examination was interpreted and the report reviewed and electronically signed by: ZOHREH HURTADO DO on Apr 02 2024 2:39PM [facility] * * *Final Report* * * DATE OF EXAM: Apr 02 2024 12:48PM TL 5279 - XR HIP 2V AP/ LAT LT / PROCEDURE REASON: M25.552-Pain in left hip * * * * Physician Interpretation * * * * EXAM(s): XR HIP 2V AP/ LAT LT..... HISTORY: 73 years old Clinical information: Pain in left hip left hip pain TECHNIQUE: Images: XR HIP 2V AP/ LAT LT Comparison: 07/12/2017. RESULT: Findings: The components of the LEFT total hip arthroplasty appear stable.. There is no evidence of loosening of the components. No fractures or dislocations are seen. Marked narrowing of the RIGHT hip joint [facility] Provider, Krishna Carpenter - 04/02/2024 * * *Final Report* * * DATE OF EXAM: Apr 02 2024 12:48PM TL 5279 - XR HIP 2V AP/ LAT LT / PROCEDURE REASON: M25.552-Pain in left hip * * * * Physician Interpretation * * * * EXAM(s): XR HIP 2V AP/ LAT LT..... HISTORY: 73 years old Clinical information: Pain in left hip left hip pain TECHNIQUE: Images: XR HIP 2V AP/ LAT LT Comparison: 07/12/2017. RESULT: Findings: The components of the LEFT total hip arthroplasty appear stable.. There is no evidence of loosening of the components. No fractures or dislocations are seen. Marked narrowing of the RIGHT hip joint IMPRESSION IMPRESSION: Findings as discussed in results portion of report Vault Clerk: ABDIEL Transcribe Date/Time: Apr 02 2024 2:38P Dictated by : ZOHREH HURTADO DO This examination was interpreted and the report reviewed and electronically signed by: ZOHREH HURTADO DO on Apr 02 2024 2:39PM [facility] Radiology Study observation (narrative) [facility] XR Hip - left AP and Lateral Ordered By: [facility] Provider on 04-02-2024 [facility] CNTHERAPYon 04-01-2024 CNTHERAPY OT/PT/Speech Visit ( PTWS) -- MARY ALICE GA ([id number]) 1950 F Date Time Provider Department 04/01/24 4:15 PM LISETH ALANIS PTWS Date Time Provider Department [place] 04/01/2024 4:15 PM [id number] ALANIS Eliot Carrillo Reason for Visit: Physical Therapy [503] Primary Visit Diagnosis:Other malaise [R53.81] Allergies As of Date: 04/01/2024 Noted Allergy Reaction CLARITHROMYCIN (BULK) 06/15/2010 14 - Other: See Comments Comments: pancrititis STEROIDS (BETAMETHASONE DIPROPION*06/15/2010 5 - Intolerance Comments: pancritis Date Reviewed: 02/27/2024 Reviewed by: Rhina Pozo OCCA - Fully Assessed Prescriptions as of 04/01/2024 - acetaminophen (TYLENOL) 325 mg cap Take by mouth. - alendronate (FOSAMAX) 70 mg tablet Take 1 tablet by mouth one time a week. - anastrozole (ARIMIDEX) 1 mg tablet - pantoprazole DR (PROTONIX) 40 mg tablet Take 1 tablet by mouth once daily. - nadolol (CORGARD) 20 mg tablet TAKE ONE TABLET BY MOUTH EVERY DAY - potassium chloride ER (K-DUR, KLOR-CON) 20 mEq tablet Take 20 mEq by mouth two times a day. - diclofenac sodium (VOLTAREN) 1 % topical gel Apply 2 g to affected area four times daily as needed. - spironolactone (ALDACTONE) 50 mg tablet Take 1 tablet by mouth twice daily. - furosemide (LASIX) 20 mg tablet Take 2 tablets by mouth twice daily. - MILK THISTLE ORAL Take by mouth once daily. - ibuprofen (MOTRIN) 200 mg tablet Take 400 mg by mouth three times daily. -- Normal [facility] CNTHERAPYon 03-26-2024 CNTHERAPY OT/PT/Speech Visit ( PTWS) -- MIGDALIAMARY ALICE ([id number]) 1950 F Date Time Provider Department 03/26/24 11:15 AM LISETH ALANIS Date Time Provider Department [place] 03/26/2024 11:15 AM [id number] ALANIS Reason for Visit: Physical Therapy [503] Primary Visit Diagnosis:Other malaise [R53.81] Allergies As of Date: 03/26/2024 Noted Allergy Reaction CLARITHROMYCIN (BULK) 06/15/2010 14 - Other: See Comments Comments: pancrititis STEROIDS (BETAMETHASONE DIPROPION*06/15/2010 5 - Intolerance Comments: pancritis Date Reviewed: 02/27/2024 Reviewed by: Rhina Pozo OCCA - Fully Assessed Prescriptions as of 03/26/2024 - acetaminophen (TYLENOL) 325 mg cap Take by mouth. - alendronate (FOSAMAX) 70 mg tablet Take 1 tablet by mouth one time a week. - anastrozole (ARIMIDEX) 1 mg tablet - pantoprazole DR (PROTONIX) 40 mg tablet Take 1 tablet by mouth once daily. - nadolol (CORGARD) 20 mg tablet TAKE ONE TABLET BY MOUTH EVERY DAY - potassium chloride ER (K-DUR, KLOR-CON) 20 mEq tablet Take 20 mEq by mouth two times a day. - diclofenac sodium (VOLTAREN) 1 % topical gel Apply 2 g to affected area four times daily as needed. - spironolactone (ALDACTONE) 50 mg tablet Take 1 tablet by mouth twice daily. - furosemide (LASIX) 20 mg tablet Take 2 tablets by mouth twice daily. - MILK THISTLE ORAL Take by mouth once daily. - ibuprofen (MOTRIN) 200 mg tablet Take 400 mg by mouth three times daily. -- [employer]: Therapy (PT/OT/Speech/Resp) ID: [id number] 03/26/2024 11:46 AM Author: LISETH ALANIS Signed by LISETH ALANIS PT on 03/26/2024 at 11:46 AM Document text: Program_ID:[id number] Access Code: [email or web address] URL: [email or web address] Date: 03-26-2024 Prepared By: Liseth Alanis Program Notes Exercises - Seated Lumbar Flexion Stretch - 2-3 x daily - 7 x weekly - 2-3 sets - 10 reps - Standing Hip Abduction with Counter Support - 1 x daily - 7 x weekly - 4 sets - 15 reps - Standing Knee Flexion with Counter Support - 1 x daily - 7 x weekly - 4 sets - 15 reps - Mini Squat with Counter Support - 1 x daily - 7 x weekly - 4 sets - 15 reps - Heel Raises with Counter Support - 1 x daily - 7 x weekly - 2 sets - 12 reps - Seated Anti-Rotation Press With Anchored Resistance - 1 x daily - 7 x weekly - 2 sets - 15 reps - Stir the Pot - 1 x daily - 7 x weekly - 2 sets - 10 reps Normal [facility] THERAPY NTon 03-26-2024 THERAPY NT HNO ID: [id number] Author: LISETH ALANIS PT Service: ? Author Type: Physical Therapist Type: Therapy (PT/OT/Speech/Resp) Filed: 03/26/2024 11:46 Note Text: Program_ID:[id number] Access Code: [email or web address] URL: [email or web address] Date: 03-26-2024 Prepared By: Liseth Alanis Program Notes Exercises - Seated Lumbar Flexion Stretch - 2-3 x daily - 7 x weekly - 2-3 sets - 10 reps - Standing Hip Abduction with Counter Support - 1 x daily - 7 x weekly - 4 sets - 15 reps - Standing Knee Flexion with Counter Support - 1 x daily - 7 x weekly - 4 sets - 15 reps - Mini Squat with Counter Support - 1 x daily - 7 x weekly - 4 sets - 15 reps - Heel Raises with Counter Support - 1 x daily - 7 x weekly - 2 sets - 12 reps - Seated Anti-Rotation Press With Anchored Resistance - 1 x daily - 7 x weekly - 2 sets - 15 reps - Stir the Pot - 1 x daily - 7 x weekly - 2 sets - 10 reps Normal [facility] CNTHERAPYon 03-20-2024 CNTHERAPY OT/PT/Speech Visit ( PTWS) -- MARY ALICE GA ([id number]) 1950 F Date Time Provider Department 03/20/24 12:00 PM LISETH ALANIS Date Time Provider Department Center 03/20/2024 12:00 PM [id number] ALANIS Reason for Visit: Physical Therapy [503] Primary Visit Diagnosis:Other malaise [R53.81] Allergies As of Date: 03/20/2024 Noted Allergy Reaction CLARITHROMYCIN (BULK) 06/15/2010 14 - Other: See Comments Comments: pancrititis STEROIDS (BETAMETHASONE DIPROPION*06/15/2010 5 - Intolerance Comments: pancritis Date Reviewed: 02/27/2024 Reviewed by: Rhina Pozo OCCA - Fully Assessed Prescriptions as of 03/20/2024 - acetaminophen (TYLENOL) 325 mg cap Take by mouth. - alendronate (FOSAMAX) 70 mg tablet Take 1 tablet by mouth one time a week. - anastrozole (ARIMIDEX) 1 mg tablet - pantoprazole DR (PROTONIX) 40 mg tablet Take 1 tablet by mouth once daily. - nadolol (CORGARD) 20 mg tablet TAKE ONE TABLET BY MOUTH EVERY DAY - potassium chloride ER (K-DUR, KLOR-CON) 20 mEq tablet Take 20 mEq by mouth two times a day. - diclofenac sodium (VOLTAREN) 1 % topical gel Apply 2 g to affected area four times daily as needed. - spironolactone (ALDACTONE) 50 mg tablet Take 1 tablet by mouth twice daily. - furosemide (LASIX) 20 mg tablet Take 2 tablets by mouth twice daily. - MILK THISTLE ORAL Take by mouth once daily. - ibuprofen (MOTRIN) 200 mg tablet Take 400 mg by mouth three times daily. -- Normal [facility] [id number] 03-13-2024 [id number] O ID: [id number] Author: LISETH ALANIS PT Service: ? Author Type: Physical Therapist Type: [id number] Filed: 03/13/2024 13:32 Note Text: [facility] Physical Therapy Plan of Care Certification Patient Name: Mary Alice Ga : 1950 [facility] #: [id number] Date: 03/13/2024 To: Solo Calderón PA From Therapist: Liseth Alanis PT RE: Patient Certification/ Recertification Your review, approval and electronic signature are required in order to comply with Payor: MEDICARE / Plan: MEDICARE A AND B / Product Type: Medicare / regulations. The identified Physical Therapy PLAN OF CARE for the patient is as follows: R53.81 Other malaise (primary encounter diagnosis) PLAN OF CARE UPDATE: Assessment: Mary Alice Ga demonstrates significant improvement in walking . She has progressed toward goals. Patient continues to present with impairments in ADL's, balance, gait, independence in exercise, joint mobility, overall function, patient reported outcome measures, posture, range of motion, soft tissue healing, strength, symptom management, and tissue tenderness that interfere with walking in the community, walking in the house . Current prognosis is Good due to: positive past response to therapy . She will benefit from continued skilled therapy services to meet the updated goals for this plan of care as noted below. Goals for Episode of Care: created on 01/24/24 through 02/28/24 Goals updated on 03/13/2024 and 05/08/24 Patient will report no falls. -- MET Improve score on Timed Up and Go Test to 14 or less seconds to reflect decreased fall risk. -- PROGRESSING Improve score on 30 Second Chair Stand to x10 or more repetitions to reflect decreased fall risk. -- PROGRESSING [place] in home exercise program including cardiovascular exercise. -- PROGRESSING Complete 6 MWT x1545 ft or more with or without SC. -- PROGRESSING Patient Goals: amb without an AD from handicap spot to front door without LOB -- PROGRESSING Patient Goals: amb without an AD from handicap spot to front door without LOB Planned Interventions, Frequency, and Duration: 1x/week, 8 weeks Total Number of Visits Planned: 8 Patient to be seen for Gait Training (52505), Self-longterm management (10912), Therapeutic activities (05722), Manual therapy (43206), Neuromuscular re-education (47426), Therapeutic exercise (83852) PLAN FOR NEXT VISIT: work on step ups, uneven surfaces For further details regarding this patient refer to the Physical Therapy electronically documented visit dated 03/13/2024. Provider Attestation I have reviewed the treatment plan for Mary Alice Ga, C[facility]# [id number] for the period of 03/13/24 -- 05/08/24, established on 03/13/2024. Signature certifies the need for therapy services. Normal [facility] CNTHERAPYon 03-13-2024 CNTHERAPY OT/PT/Speech Visit ( PTWS) -- MARY ALICE GA Chucky ([id number]) 1950 F Date Time Provider Department 03/13/24 12:45 PM LISETH ALANIS PTWS Date Time Provider Department [place] 03/13/2024 12:45 PM [id number] ALANIS PTWS Eliot Carrillo Reason for Visit: PT Progress Note [1596] Primary Visit Diagnosis:Other malaise [R53.81] Allergies As of Date: 03/13/2024 Noted Allergy Reaction CLARITHROMYCIN (BULK) 06/15/2010 14 - Other: See Comments Comments: pancrititis STEROIDS (BETAMETHASONE DIPROPION*06/15/2010 5 - Intolerance Comments: pancritis Date Reviewed: 02/27/2024 Reviewed by: Rhina Pozo OCCA - Fully Assessed Prescriptions as of 09/18/2024 - gabapentin (NEURONTIN) 300 mg capsule 300 mg two times a day. - traMADol (ULTRAM) 50 mg tablet Take 1 tablet by mouth every 6 hours as needed. - methocarbamol (ROBAXIN) 500 mg tablet Take 1 tablet by mouth two times a day. - LASIX 40 mg tablet Take 40 mg by mouth two times a day. - acetaminophen (TYLENOL) 325 mg cap Take by mouth. - alendronate (FOSAMAX) 70 mg tablet Take 1 tablet by mouth one time a week. - anastrozole (ARIMIDEX) 1 mg tablet - pantoprazole DR (PROTONIX) 40 mg tablet Take 1 tablet by mouth once daily. - nadolol (CORGARD) 20 mg tablet TAKE ONE TABLET BY MOUTH EVERY DAY - potassium chloride ER (K-DUR, KLOR-CON) 20 mEq tablet Take 20 mEq by mouth two times a day. - diclofenac sodium (VOLTAREN) 1 % topical gel Apply 2 g to affected area four times daily as needed. - spironolactone (ALDACTONE) 50 mg tablet Take 1 tablet by mouth twice daily. Letter Text Letter Text Normal [facility] CNOVon 02-27-2024 CNOV Office Visit (VASSWS ) -- MARY ALICE GA ([id number]) 1950 F Date Time Provider Department 02/27/24 8:30 AM GT YIN VASSWS During your visit today, we recorded the following information about you: Pulse Blood pressure 61/minute 128/66 Gt Yin, DO 03/26/2024 1:56 PM Signed [facility] [place] DEPARTMENT OF VASCULAR SURGERY OUTPATIENT VISIT DATE February 27, 2024 OUTPATIENT VISIT TYPE CONSULTATION SERVICE DATE: 02/27/2024 SERVICE TIME: 8:31 AM PRIMARY CARE PHYSICIAN: Khanh Rodriguez MD REFERRING PROVIDER: No referring provider defined for this encounter. Consult requested for an opinion regarding the evaluation and treatment of the above. My final impression and recommendations will be communicated back to the requesting physician by way of the shared medical record or letter via US mail. CHIEF COMPLAINT: Patient presents with: New Patient History of Present Illness: Patient is a 73 year old White female presenting for consultation, evaluation and possible treatment of leg edema.bilateral edema and describes right greater than left. She has right lower extremity wounds for the past year. She has been treated at [place] [facility]. They recommend HBO to help with healing. She has history of AGSV EVLT and phlebectomy in 2015. She had reflux testing at [facility] which demonstrated reflux and had ablation a few months ago and has had issue healing since the procedure. She wears compression stockings- knee high stockings. She currently has epifix in place with an compression dressing. 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 She stands for long periods of time during the day. 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 Has used compression pumps in the past- over the counter. Family history edema- father PAIN ASSESSMENT: PAIN EVALUATION No data found in the last 1 encounters. Obstetric History No data available Duration of Symptoms: Progressive PAST MEDICAL HISTORY Diagnosis Date Arthritis Cirrhosis (HCC) Cirrhosis (HCC) Edema Flexural atopic dermatitis Inflamed seborrheic keratosis Liver disease Multiple nevi PMH - PAST MEDICAL HISTORY OF 01/24/08 pancreatitis PMH - PAST MEDICAL HISTORY OF htn PMH - PAST MEDICAL HISTORY OF hx varicose veins PMH - PAST MEDICAL HISTORY OF 05/17/08 pulmonary embolus- postop left TKA Seborrheic keratoses Solar lentiginosis PAST SURGICAL HISTORY Procedure Laterality Date PAST SURGICAL HISTORY OF 1991 JULIETA/BSO for fibroids PAST SURGICAL HISTORY OF tonsillectomy PAST SURGICAL HISTORY OF 05/14/08 Left TKA PAST SURGICAL HISTORY OF 08/29/2011 R TKA SOCIAL HISTORY: Social History Tobacco Use Smoking status: Never Smokeless tobacco: Never Substance Use Topics Alcohol use: Yes Comment: 3 glasses of wine daily-quit 05/2016 Drug use: No FAMILY HISTORY Problem Relation Age of Onset None Mother Dementia Mother Diabetes Father Heart Father Melanoma Father Melanoma Brother MEDICATIONS: nadolol (CORGARD) 20 mg tablet TAKE ONE TABLET BY MOUTH EVERY DAY potassium chloride ER (K-DUR, KLOR-CON) 20 mEq tablet Take 20 mEq by mouth once daily. diclofenac sodium (VOLTAREN) 1 % topical gel Apply 2 g to affected area four times daily as needed. spironolactone (ALDACTONE) 50 mg tablet Take 1 tablet by mouth twice daily. furosemide (LASIX) 20 mg tablet Take 2 tablets by mouth twice daily. MILK THISTLE ORAL Take by mouth once daily. ibuprofen (MOTRIN) 200 mg tablet Take 400 mg by mouth three times daily. ALLERGIES: ALLERGIES Allergen Reactions Clarithromycin (Bul* Other: See Comments pancrititis Steroids [Betametha* Intolerance pancritis REVIEW of SYSTEMS: Constitutional: No weight loss, malaise or fevers. HEENT: Negative for frequent or significant headaches, No changes in hearing or vision, no nose bleeds or other nasal problems Respiratory: Negative for cough, wheezing, or shortness of breath Cardiovascular: Negative for chest pain and palpitations and Positive for leg swelling Gatrointestinal: Negative for blood in stools or black stools and Positive for abdominal discomfort and has hernia Genitourinary: No difficulty urination, nocturia >1 times per night or hematuria Musculoskeletal: Negative for muscle pain and Positive for back pain, joint pain, and muscle pain Endocrine: Positive for cold intolerance Hematology/Lymphatic: Negative for prolonged bleeding and Positive for bruises easily Neurologic: No history or headaches, syncope, paralysis, seizures or tremors Integumentary: Negative for rash and itching and Positive for lesions PHYSICAL EXAM: VITALS: There were no vitals taken for this visit. General: Alert, oriented, cooperative, healthy appearance Integumentary: Normal color, no rash, no lesions. HEENT: EOM, pupils equal, round and americo (more content not included)... Normal [facility] CNTHERAPYon 02-20-2024 CNTHERAPY OT/PT/Speech Visit ( PTWS) -- MARY ALICE GA ([id number]) 1950 F Date Time Provider Department 02/20/24 10:30 AM LISETH ALANIS PTLUTHER Date Time Provider Department [place] 02/20/2024 10:30 AM [id number] ALANIS PTLUTHER Carrillo Reason for Visit: Physical Therapy [503] Primary Visit Diagnosis:Other malaise [R53.81] Allergies As of Date: 02/20/2024 Noted Allergy Reaction CLARITHROMYCIN (BULK) 06/15/2010 14 - Other: See Comments Comments: pancrititis STEROIDS (BETAMETHASONE DIPROPION*06/15/2010 5 - Intolerance Comments: pancritis Date Reviewed: 06/25/2019 Reviewed by: Rehana Mata Ma - Fully Assessed Prescriptions as of 02/20/2024 - nadolol (CORGARD) 20 mg tablet TAKE ONE TABLET BY MOUTH EVERY DAY - potassium chloride ER (K-DUR, KLOR-CON) 20 mEq tablet Take 20 mEq by mouth once daily. - diclofenac sodium (VOLTAREN) 1 % topical gel Apply 2 g to affected area four times daily as needed. - spironolactone (ALDACTONE) 50 mg tablet Take 1 tablet by mouth twice daily. - furosemide (LASIX) 20 mg tablet Take 2 tablets by mouth twice daily. - MILK THISTLE ORAL Take by mouth once daily. - ibuprofen (MOTRIN) 200 mg tablet Take 400 mg by mouth three times daily. -- Normal [facility] CNTHERAPYon 02-13-2024 CNTHERAPY OT/PT/Speech Visit ( PTWS) -- MARY ALICE GA ([id number]) 1950 F Date Time Provider Department 02/13/24 10:30 AM LISETH ALANIS PTLUTHER Date Time Provider Department Center 02/13/2024 10:30 AM [id number] ALANIS Reason for Visit: Physical Therapy [503] Primary Visit Diagnosis:Other malaise [R53.81] Allergies As of Date: 02/13/2024 Noted Allergy Reaction CLARITHROMYCIN (BULK) 06/15/2010 14 - Other: See Comments Comments: pancrititis STEROIDS (BETAMETHASONE DIPROPION*06/15/2010 5 - Intolerance Comments: pancritis Date Reviewed: 06/25/2019 Reviewed by: Rehana Mata Ma - Fully Assessed Prescriptions as of 02/13/2024 - nadolol (CORGARD) 20 mg tablet TAKE ONE TABLET BY MOUTH EVERY DAY - potassium chloride ER (K-DUR, KLOR-CON) 20 mEq tablet Take 20 mEq by mouth once daily. - diclofenac sodium (VOLTAREN) 1 % topical gel Apply 2 g to affected area four times daily as needed. - spironolactone (ALDACTONE) 50 mg tablet Take 1 tablet by mouth twice daily. - furosemide (LASIX) 20 mg tablet Take 2 tablets by mouth twice daily. - MILK THISTLE ORAL Take by mouth once daily. - ibuprofen (MOTRIN) 200 mg tablet Take 400 mg by mouth three times daily. -- [employer]: Therapy (PT/OT/Speech/Resp) ID: [id number] 02/13/2024 11:06 AM Author: LISETH ALANIS Signed by LISETH ALANIS PT on 02/13/2024 at 11:06 AM Document text: Program_ID:[id number] Access Code: [email or web address] URL: [email or web address]/ Date: 02-13-2024 Prepared By: Liseth Alanis Program Notes Exercises - Seated Lumbar Flexion Stretch - 2-3 x daily - 7 x weekly - 2-3 sets - 10 reps - Standing Hip Abduction with Counter Support - 1 x daily - 7 x weekly - 4 sets - 15 reps - Standing Knee Flexion with Counter Support - 1 x daily - 7 x weekly - 4 sets - 15 reps - Mini Squat with Counter Support - 1 x daily - 7 x weekly - 4 sets - 15 reps - Heel Raises with Counter Support - 1 x daily - 7 x weekly - 2 sets - 12 reps Normal [facility] THERAPY NTon 02-13-2024 THERAPY NT HNO ID: [id number] Author: LISETH ALANIS PT Service: ? Author Type: Physical Therapist Type: Therapy (PT/OT/Speech/Resp) Filed: 02/13/2024 11:06 Note Text: Program_ID:[id number] Access Code: [email or web address] URL: [email or web address]/ Date: 02-13-2024 Prepared By: Liseth Alanis Program Notes Exercises - Seated Lumbar Flexion Stretch - 2-3 x daily - 7 x weekly - 2-3 sets - 10 reps - Standing Hip Abduction with Counter Support - 1 x daily - 7 x weekly - 4 sets - 15 reps - Standing Knee Flexion with Counter Support - 1 x daily - 7 x weekly - 4 sets - 15 reps - Mini Squat with Counter Support - 1 x daily - 7 x weekly - 4 sets - 15 reps - Heel Raises with Counter Support - 1 x daily - 7 x weekly - 2 sets - 12 reps Normal [facility] CNTHERAPYon 02-06-2024 CNTHERAPY OT/PT/Speech Visit ( PTWS) -- MARY ALICE GA ([id number]) 1950 F Date Time Provider Department 02/06/24 8:15 AM LISETH ALANIS Date Time Provider Department [place] 02/06/2024 8:15 AM [id number] ALANIS Reason for Visit: Physical Therapy [503] Primary Visit Diagnosis:Other malaise [R53.81] Allergies As of Date: 02/06/2024 Noted Allergy Reaction CLARITHROMYCIN (BULK) 06/15/2010 14 - Other: See Comments Comments: pancrititis STEROIDS (BETAMETHASONE DIPROPION*06/15/2010 5 - Intolerance Comments: pancritis Date Reviewed: 06/25/2019 Reviewed by: Rehana Mata Ma - Fully Assessed Prescriptions as of 02/06/2024 - nadolol (CORGARD) 20 mg tablet TAKE ONE TABLET BY MOUTH EVERY DAY - potassium chloride ER (K-DUR, KLOR-CON) 20 mEq tablet Take 20 mEq by mouth once daily. - diclofenac sodium (VOLTAREN) 1 % topical gel Apply 2 g to affected area four times daily as needed. - spironolactone (ALDACTONE) 50 mg tablet Take 1 tablet by mouth twice daily. - furosemide (LASIX) 20 mg tablet Take 2 tablets by mouth twice daily. - MILK THISTLE ORAL Take by mouth once daily. - ibuprofen (MOTRIN) 200 mg tablet Take 400 mg by mouth three times daily. -- [employer]: Therapy (PT/OT/Speech/Resp) ID: [id number] 02/06/2024 8:47 AM Author: LISETH ALANIS Signed by LISETH ALANIS PT on 02/06/2024 at 8:47 AM Document text: Program_ID:[id number] Access Code: [email or web address] URL: [email or web address] Date: 02-06-2024 Prepared By: Liseth Alanis Program Notes Exercises - Seated Lumbar Flexion Stretch - 2-3 x daily - 7 x weekly - 2-3 sets - 10 reps - Standing Hip Abduction with Counter Support - 1 x daily - 7 x weekly - 4 sets - 15 reps - Standing Knee Flexion with Counter Support - 1 x daily - 7 x weekly - 4 sets - 15 reps - Mini Squat with Counter Support - 1 x daily - 7 x weekly - 4 sets - 15 reps Normal [facility] THERAPY NTon 02-06-2024 THERAPY NT HNO ID: [id number] Author: LISETH ALANIS, PT Service: ? Author Type: Physical Therapist Type: Therapy (PT/OT/Speech/Resp) Filed: 02/06/2024 08:47 Note Text: Program_ID:[id number] Access Code: [email or web address] URL: [email or web address] [email or web address]/ Date: 02-06-2024 Prepared By: Liseth Alanis Program Notes Exercises - Seated Lumbar Flexion Stretch - 2-3 x daily - 7 x weekly - 2-3 sets - 10 reps - Standing Hip Abduction with Counter Support - 1 x daily - 7 x weekly - 4 sets - 15 reps - Standing Knee Flexion with Counter Support - 1 x daily - 7 x weekly - 4 sets - 15 reps - Mini Squat with Counter Support - 1 x daily - 7 x weekly - 4 sets - 15 reps Normal [facility] CNTHERAPYon 01-30-2024 CNTHERAPY OT/PT/Speech Visit ( PTWS) -- MARY ALICE GA ([id number]) 1950 F Date Time Provider Department 01/30/24 10:30 AM LISETH ALANIS PTWS Date Time Provider Department Center 01/30/2024 10:30 AM [id number] ALANIS PTWS Eliot Carrillo Reason for Visit: Physical Therapy [503] Primary Visit Diagnosis:Other malaise [R53.81] Allergies As of Date: 01/30/2024 Noted Allergy Reaction CLARITHROMYCIN (BULK) 06/15/2010 14 - Other: See Comments Comments: pancrititis STEROIDS (BETAMETHASONE DIPROPION*06/15/2010 5 - Intolerance Comments: pancritis Date Reviewed: 06/25/2019 Reviewed by: Rehana Mata Ma - Fully Assessed Prescriptions as of 01/30/2024 - nadolol (CORGARD) 20 mg tablet TAKE ONE TABLET BY MOUTH EVERY DAY - potassium chloride ER (K-DUR, KLOR-CON) 20 mEq tablet Take 20 mEq by mouth once daily. - diclofenac sodium (VOLTAREN) 1 % topical gel Apply 2 g to affected area four times daily as needed. - spironolactone (ALDACTONE) 50 mg tablet Take 1 tablet by mouth twice daily. - furosemide (LASIX) 20 mg tablet Take 2 tablets by mouth twice daily. - MILK THISTLE ORAL Take by mouth once daily. - ibuprofen (MOTRIN) 200 mg tablet Take 400 mg by mouth three times daily. -- [employer]: Therapy (PT/OT/Speech/Resp) ID: [id number] 01/30/2024 11:07 AM Author: LISETH ALANIS Signed by LISETH ALANIS PT on 01/30/2024 at 11:07 AM Document text: Program_ID:[id number] Access Code: [email or web address] URL: [email or web address]://[email or web address] [email or web address]/ Date: 01-30-2024 Prepared By: Liseth Alanis Program Notes Exercises - Seated Lumbar Flexion Stretch - 2-3 x daily - 7 x weekly - 2-3 sets - 10 reps Normal [facility] THERAPY NTon 01-30-2024 THERAPY NT HNO ID: [id number] Author: LISETH ALANIS, PT Service: ? Author Type: Physical Therapist Type: Therapy (PT/OT/Speech/Resp) Filed: 01/30/2024 11:07 Note Text: Program_ID:[id number] Access Code: [email or web address] URL: [email or web address] [email or web address]/ Date: 01-30-2024 Prepared By: Liseth Alanis Program Notes Exercises - Seated Lumbar Flexion Stretch - 2-3 x daily - 7 x weekly - 2-3 sets - 10 reps Normal [facility] [id number] 01-24-2024 [id number] HNO ID: [id number] Author: LISETH ALANIS PT Service: ? Author Type: Physical Therapist Type: [id number] Filed: 01/24/2024 17:24 Note Text: [facility] Physical Therapy Plan of Care Certification Patient Name: Mary Alice Ga : 1950 [facility] #: [id number] Date: 01/24/2024 To: Solo Calderón PA From Therapist: Liseth Alanis PT RE: Patient Certification/ Recertification Your review, approval and electronic signature are required in order to comply with Payor: MEDICARE / Plan: MEDICARE A AND B / Product Type: Medicare / regulations. The identified Physical Therapy PLAN OF CARE for the patient is as follows: R53.81 Other malaise (primary encounter diagnosis) PLAN OF CARE: Assessment: Mary Alice Ga presents with diagnosis of other malaise that interferes with walking in the community, walking in the house . She presents with impairments in ADL's, balance, gait, independence in exercise, overall function, patient reported outcome measures, posture, range of motion, strength, symptom management, and tissue tenderness. PROMIS? (Patient-Reported Outcomes Measurement Information System) scores were reviewed and identified as a rehabilitation concern. Prognosis for therapy is Fair due to: chronic nature of impairments, coping skills, clinical presentation, multiple co- morbidities, poor historian . She will benefit from skilled therapy services to meet the goals established for this plan of care as noted below. Goals for Episode of Care: created on 01/24/24 through 02/28/24 Patient will report no falls. Improve score on Timed Up and Go Test to 14 or less seconds to reflect decreased fall risk. Improve score on 30 Second Chair Stand to x10 or more repetitions to reflect decreased fall risk. [place] in home exercise program including cardiovascular exercise. Complete 6 MWT x1545 ft or more with or without SC. Patient Goals: amb without an AD from handicap spot to front door without LOB Planned Interventions, Frequency, and Duration: Current Frequency: 1x/week Duration: 6 weeks Total Number of Visits Planned: 6 Planned Treatment Interventions: Self-longterm management (70828), Gait Training (00604), Therapeutic activities (63992), Manual therapy (36198), Neuromuscular re-education (26257), Therapeutic exercise (96982) PLAN FOR NEXT VISIT: 6 MWT Patient demonstrates good understanding of plan of care and treatment. The above goals and plan of care were discussed and agreed upon by patient/family. For further details regarding this patient refer to the Physical Therapy electronically documented visit dated 01/24/2024. Provider Attestation I have reviewed the treatment plan for Mary Alice Ga [facility]# [id number] for the period of 01/24/24 -- 03/20/24, established on 01/24/2024. Signature certifies the need for therapy services. Normal [facility] CNTHERAPYon 01-24-2024 CNTHERAPY OT/PT/Speech Visit ( PTWS) -- MARY ALICE GA ([id number]) 1950 F Date Time Provider Department 01/24/24 3:45 PM LISETH ALANIS PTLUTHER Date Time Provider Department Center 01/24/2024 3:45 PM [id number] ALANIS PTLUTHER Carrillo Reason for Visit: PT Eval [747] Primary Visit Diagnosis:Other malaise [R53.81] Allergies As of Date: 01/24/2024 Noted Allergy Reaction CLARITHROMYCIN (BULK) 06/15/2010 14 - Other: See Comments Comments: pancrititis STEROIDS (BETAMETHASONE DIPROPION*06/15/2010 5 - Intolerance Comments: pancritis Date Reviewed: 06/25/2019 Reviewed by: Rehana Mata Ma - Fully Assessed Prescriptions as of 02/09/2024 - nadolol (CORGARD) 20 mg tablet TAKE ONE TABLET BY MOUTH EVERY DAY - potassium chloride ER (K-DUR, KLOR-CON) 20 mEq tablet Take 20 mEq by mouth once daily. - diclofenac sodium (VOLTAREN) 1 % topical gel Apply 2 g to affected area four times daily as needed. - spironolactone (ALDACTONE) 50 mg tablet Take 1 tablet by mouth twice daily. - furosemide (LASIX) 20 mg tablet Take 2 tablets by mouth twice daily. - MILK THISTLE ORAL Take by mouth once daily. - ibuprofen (MOTRIN) 200 mg tablet Take 400 mg by mouth three times daily. -- Letter Text Letter Text Letter Text Normal [facility] Absolute lymphocyte countOrd ered By: Solo Calderón on 01-05-2024 Lymphocytes Auto (Unsp spec) [#/Vol] 0.97 10*3/uL 0.83-4.51 [facility] Automated lymphocyte count a s percentage of total leukocytesOrdered By: Solo Calderón on 01-05-2024 Lymphocytes/100 WBC Auto (Unsp spec) 11.0 % 19-41 [facility] Basophil percentageOrdered B y: Solo Calderón on 01-05-2024 Basophils/100 WBC (Bld) 0.2 % 0-1 [facility] Bilirubin [Mass/Vol] 4.80 mg/dL 0.20-1.00 [facility] Comment on above: For patients on eltr ombopag therapy, use of Dimension [place] TBIL is not recommended. Chloride [Moles/Vol] 98 mmol/L 98-107 [facility] Eosinophils/100 WBC (Bld) 0.5 % 0-5 [facility] Glucose [Mass/Vol] 113 mg/dL 74-106 [facility] Comment on above: Fasting Glucose resu lt from 100 to 125 mg/dL suggests IMPAIRED HOMEOSTASIS per A.D.A. criteria. Hemoglobin (Bld) [Mass/Vol] 9.9 g/dL 12.0-15.0 [facility] Monocytes/100 WBC (Bld) 7.3 % 0-10 [facility] Neutrophils (Bld) [#/Vol] 7.1 10*3/uL 2.0-7.7 [facility] Neutrophils/100 WBC (Bld) 80.5 % 47-70 [facility] Potassium [Moles/Vol] 3.0 mmol/L 3.5-5.1 [facility] Protein [Mass/Vol] 6.1 g/dL 6.4-8.2 [facility] Sodium [Moles/Vol] 131 mmol/L 136-145 [facility] WBC (Bld) [#/Vol] 8.9 10*3/uL 4.4-11.0 [facility] Determination of erythrocyte mean corpuscular volume (MCV)Ordered By: Solo Calderón on 01-05-2024 MCV (RBC) [Entitic vol] 105.2 fL 81-99 [facility] [facility] Erythrocyte distribution wid th ratioOrdered By: Solo Calderón on 01-05-2024 Erythrocyte distribution width (RBC) [Ratio] 13.0 % 11.6-14.6 [facility] Erythrocyte distribution wid th standard deviationOrdered By: Solo Calderón on 01-05-2024 Erythrocyte distribution width (RBC) [Entitic vol] 50.1 fL 35.1-43.9 [facility] Hematocrit Auto (Bld) [Volum e fraction]Ordered By: Solo Calderón on 01-05-2024 Hematocrit (Bld) [Volume fraction] 28.4 % 37-47 [facility] Immature granulocytes/100 WB C Auto (Bld)Ordered By: Solo Calderón on 01-05-2024 Immature granulocytes/100 WBC (Bld) 0.500 % 0.0-0.9 [facility] Comment on above: IG% - Immature Granu locytes (promyelocytes, myelocytes and metamyelocytes) > 1% indicates that a LEFT SHIFT is Present. Laboratory - Chemistry and C hemistry - challengeOrdered By: Solo Calderón on 01-05-2024 Albumin/Globulin [Mass ratio] 0.7 {ratio} 0.9-2.4 [facility] ALP [Catalytic activity/Vol] 201 U/L 45-117 [facility] ALT [Catalytic activity/Vol] 26 U/L 13-56 [facility] CO2 [Moles/Vol] 24.0 mmol/L 21.0-32.0 [facility] Cobalamin (Vitamin B12) [Mass/Vol] 1503 pg/mL 211-911 [facility] Globulin (S) [Mass/Vol] 3.5 g/dL 2.2-4.2 [facility] Natriuretic peptide B (Bld) [Mass/Vol] 279.9 pg/mL 0-100 [facility] Urea nitrogen/Creatinine [Mass ratio] 8.1 mg/mg 10-20 [facility] Laboratory - Hematology and Cell countsOrdered By: Solo Calderón on 01-05-2024 MCH (RBC) [Entitic mass] 36.7 pg 27.0-32.0 [facility] MCHC (RBC) [Mass/Vol] 34.9 g/dL 32-36 [facility] Nucleated RBC/100 WBC (Bld) [Ratio] 0 % 0-5 [facility] Platelet mean volume (Bld) [Entitic vol] 9.6 fL 6.2-12.0 [facility] Platelets (Bld) [#/Vol] 165 10*3/uL 150-450 [facility] No Panel InformationOrdered By: Solo Calderón on 01-05-2024 Estimated GFR (MDRD) Amer 122 mL/min >60 [facility] Comment on above: GFR Calc Estimated GFR (MDRD) Non-Af Amer 101 mL/min >60 [facility] Comment on above: Non- GFR Calc Folate 9.10 ng/mL 3.1-55.4 [facility] RBC Auto (Bld) [#/Vol]Ordere d By: Solo Calderón on 01-05-2024 RBC (Bld) [#/Vol] 2.70 10*6/uL 4.2-5.4 [facility] Serum or plasma calcium seth urement (mass/volume)Ordered By: Solo Calderón on 01-05-2024 Calcium [Mass/Vol] 8.6 mg/dL 8.5-10.1 [facility] Serum or plasma creatinine m easurement (mass/volume)Ordered By: Solo Calderón on 01-05-2024 Creatinine [Mass/Vol] 0.62 mg/dL 0.55-1.02 [facility] Comment on above: The validity of the calculated GFR & GFRAA in patients over 70 years has not been determined. Clinical correlation is essential. Serum or plasma thiamine mitul surement (mass/volume)Ordered By: Solo Calderón on 01-05-2024 Thiamine [Mass/Vol] 78.3 nmol/L 66.5-200.0 [facility] Serum or plasma urea nitroge n measurement (mass/volume)Ordered By: Solo Calderón on 01-05-2024 Urea nitrogen [Mass/Vol] 5 mg/dL 7-18 [facility] Serum or plasma zinc measure ment (mass/volume)Ordered By: Solo Calderón on 01-05-2024 Zinc [Mass/Vol] 50 ug/dL 44-115 [facility] Comment on above: Detection Limit = 5P erformed at: [facility] - [facility] [address] [id number] Director: Lesly Carty MD, Phone: [phone] Thin prep Papanicolaou smear with manual screeningOrdered By: Solo Calderón on 01-05-2024 Thin prep Papanicolaou smear with manual screening 2.6 g/dL 3.2-5.0 [facility] Thin prep Papanicolaou smear with manual screening 43 U/L 15-37 [facility] Thin prep Papanicolaou smear with manual screening 9 5-15 [facility] Basophil percentageOrdered B y: Harrison Roper on 12-30-2023 Bilirubin [Mass/Vol] 4.20 mg/dL 0.20-1.00 [facility] Comment on above: For patients on eltr ombopag therapy, use of Dimension [place] TBIL is not recommended. Chloride [Moles/Vol] 109 mmol/L 98-107 [facility] Glucose [Mass/Vol] 88 mg/dL 74-106 [facility] Potassium [Moles/Vol] 3.8 mmol/L 3.5-5.1 [facility] Protein [Mass/Vol] 5.1 g/dL 6.4-8.2 [facility] Sodium [Moles/Vol] 134 mmol/L 136-145 [facility] Direct bilirubinOrdered By: Harrison Roper on 12-30-2023 Bilirubin.direct [Mass/Vol] 3.14 mg/dL 0.00-0.30 [facility] Laboratory - Chemistry and C hemistry - challengeOrdered By: Harrison Roper on 12-30-2023 ALP [Catalytic activity/Vol] 185 U/L 45-117 [facility] ALT [Catalytic activity/Vol] 35 U/L 13-56 [facility] CO2 [Moles/Vol] 21.0 mmol/L 21.0-32.0 [facility] Globulin (S) [Mass/Vol] 2.9 g/dL 2.2-4.2 [facility] Urea nitrogen/Creatinine [Mass ratio] 25.5 mg/mg 10-20 [facility] No Panel InformationOrdered By: Harrison Roper on 12-30-2023 Estimated Creatinine Clearance Calc 62.03 ml/min [facility] Estimated GFR (MDRD) Amer 140 mL/min >60 [facility] Comment on above: GFR Calc Estimated GFR (MDRD) Non-Af Amer 116 mL/min >60 [facility] Comment on above: Non- GFR Calc Serum or plasma calcium seth urement (mass/volume)Ordered By: Harrison Roper on 12-30-2023 Calcium [Mass/Vol] 8.2 mg/dL 8.5-10.1 [facility] Serum or plasma creatinine m easurement (mass/volume)Ordered By: Harrison Roper on 12-30-2023 Creatinine [Mass/Vol] 0.55 mg/dL 0.55-1.02 [facility] Comment on above: The validity of the calculated GFR & GFRAA in patients over 70 years has not been determined. Clinical correlation is essential. Serum or plasma urea nitroge n measurement (mass/volume)Ordered By: Harrison Roper on 12-30-2023 Urea nitrogen [Mass/Vol] 14 mg/dL 7-18 [facility] Thin prep Papanicolaou smear with manual screeningOrdered By: Harrison Roper on 12-30-2023 Thin prep Papanicolaou smear with manual screening 2.2 g/dL 3.2-5.0 [facility] Thin prep Papanicolaou smear with manual screening 94 U/L 15-37 [facility] Thin prep Papanicolaou smear with manual screening 4 5-15 [facility] Absolute lymphocyte countOrd ered By: Harrison Roper on 12-29-2023 Lymphocytes Auto (Unsp spec) [#/Vol] 0.36 10*3/uL 0.83-4.51 [facility] Automated lymphocyte count a s percentage of total leukocytesOrdered By: Harrison Roper on 12-29-2023 Lymphocytes/100 WBC Auto (Unsp spec) 7.5 % 19-41 [facility] Basophil percentageOrdered B y: Harrison Roper on 12-29-2023 Basophils/100 WBC (Bld) 0.0 % 0-1 [facility] Eosinophils/100 WBC (Bld) 0.0 % 0-5 [facility] Hemoglobin (Bld) [Mass/Vol] 8.2 g/dL 12.0-15.0 [facility] Monocytes/100 WBC (Bld) 2.5 % 0-10 [facility] Neutrophils (Bld) [#/Vol] 4.3 10*3/uL 2.0-7.7 [facility] Neutrophils/100 WBC (Bld) 89.6 % 47-70 [facility] WBC (Bld) [#/Vol] 4.8 10*3/uL 4.4-11.0 [facility] Determination of erythrocyte mean corpuscular volume (MCV)Ordered By: Harrison Roper on 12-29-2023 MCV (RBC) [Entitic vol] 109.0 fL 81-99 [facility] Erythrocyte distribution wid th ratioOrdered By: Harrison Roper on 12-29-2023 Erythrocyte distribution width (RBC) [Ratio] 13.1 % 11.6-14.6 [facility] Erythrocyte distribution wid th standard deviationOrdered By: Harrison Roper on 12-29-2023 Erythrocyte distribution width (RBC) [Entitic vol] 51.9 fL 35.1-43.9 [facility] Hematocrit Auto (Bld) [Volum e fraction]Ordered By: Harrison Roper on 12-29-2023 Hematocrit (Bld) [Volume fraction] 24.3 % 37-47 [facility] Immature granulocytes/100 WB C Auto (Bld)Ordered By: Harrison Roper on 12-29-2023 Immature granulocytes/100 WBC (Bld) 0.400 % 0.0-0.9 [facility] Comment on above: IG% - Immature Granu locytes (promyelocytes, myelocytes and metamyelocytes) > 1% indicates that a LEFT SHIFT is Present. Laboratory - Chemistry and C hemistry - challengeOrdered By: Harrison Roper on 12-29-2023 Magnesium [Mass/Vol] 2.1 mg/dL 1.6-2.6 [facility] Laboratory - Hematology and Cell countsOrdered By: Harrison Roper on 12-29-2023 MCH (RBC) [Entitic mass] 36.8 pg 27.0-32.0 [facility] MCHC (RBC) [Mass/Vol] 33.7 g/dL 32-36 [facility] Nucleated RBC/100 WBC (Bld) [Ratio] 0 % 0-5 [facility] Platelet mean volume (Bld) [Entitic vol] 9.8 fL 6.2-12.0 [facility] Platelets (Bld) [#/Vol] 73 10*3/uL 150-450 [facility] RBC Auto (Bld) [#/Vol]Ordere d By: Harrison Roper on 12-29-2023 RBC (Bld) [#/Vol] 2.23 10*6/uL 4.2-5.4 [facility] Basophil percentageOrdered B y: Dalton Izaguirre on 12-28-2023 Basophil percentage 3.2 mg/dL 2.5-4.9 [facility] Blood manual differential co mment interpretation (narrative result)Ordered By: Harrison Roper on 12-28-2023 Manual differential comment Emir (Bld) [Interp] SCANNED [facility] Blood platelet adequacy dete ction by light microscopyOrdered By: Harrison Roper on 12-28-2023 Platelets LM Ql (Bld) MOD DEC ADEQ [facility] Blood polychromasia detectio n by light microscopyOrdered By: Harrison Roper on 12-28-2023 Polychromasia LM Ql (Bld) 1+ [facility] Erythrocyte [place] bod y detectionOrdered By: Harrison Roper on 12-28-2023 [place] bodies LM Ql (Bld) RARE [facility] Laboratory - CoagulationOrde red By: Harrison Roper on 12-28-2023 INR Coag (Bld) [Relative time] 1.4 {INR} [facility] PT Coag (PPP) [Time] 16.9 s 11.7-14.9 [facility] Laboratory - Hematology and Cell countsOrdered By: Harrison Roper on 12-28-2023 Anisocytosis Ql (Bld) 2+ [facility] Macrocytes detectionOrdered By: Harrison Roper on 12-28-2023 Macrocytes Ql (Bld) 2+ [facility] Ovalocyte detectionOrdered B y: Harrison Roper on 12-28-2023 Ovalocytes LM Ql (Bld) [facility] Review by pathologistOrdered By: Harrison Roper on 12-28-2023 Pathologist review Emir (Unsp spec) [Interp] Reviewed [facility] Comment on above: Previous reported re sult: Shira benton Edited by: FRAN on 12/28/23:1530Pancytopenia.LeukopeniaMacrocytic anemia.Moderate Thrombocytopenia.Clinical correlation necessary.Ari Anderson M.D. 12/28/23 AMENDED REPORT 12/28/23 1530 PATH REV previously reported as: Shira benton Absolute lymphocyte countOrd ered By: Yair Lazcano on 12-27-2023 Lymphocytes Auto (Unsp spec) [#/Vol] 1.61 10*3/uL 0.83-4.51 [facility] Activated partial thrombopla stin time (aPTT) in platelet poor plasma by coagulation aOrdered By: Yair Lazcano on 12-27-2023 aPTT Coag (PPP) [Time] 32.0 s 24.1-36.2 [facility] Automated lymphocyte count a s percentage of total leukocytesOrdered By: Yair Lazcano on 12-27-2023 Lymphocytes/100 WBC Auto (Unsp spec) 19.2 % 19-41 [facility] Basophil percentageOrdered B y: Harrison Roper on 12-27-2023 Basophil percentage 3.5 mg/dL 2.5-4.9 [facility] Basophil percentageOrdered B y: Yair Lazcano on 12-27-2023 Basophils/100 WBC (Bld) 0.2 % 0-1 [facility] Bilirubin [Mass/Vol] 7.40 mg/dL 0.20-1.00 [facility] Comment on above: For patients on eltr ombopag therapy, use of Dimension [place] TBIL is not recommended. Chloride [Moles/Vol] 100 mmol/L 98-107 [facility] Eosinophils/100 WBC (Bld) 0.4 % 0-5 [facility] Glucose [Mass/Vol] 99 mg/dL 74-106 [facility] Hemoglobin (Bld) [Mass/Vol] 10.1 g/dL 12.0-15.0 [facility] Monocytes/100 WBC (Bld) 6.7 % 0-10 [facility] Neutrophils (Bld) [#/Vol] 6.1 10*3/uL 2.0-7.7 [facility] Neutrophils/100 WBC (Bld) 73.0 % 47-70 [facility] Potassium [Moles/Vol] 3.2 mmol/L 3.5-5.1 [facility] Protein [Mass/Vol] 6.2 g/dL 6.4-8.2 [facility] Sodium [Moles/Vol] 138 mmol/L 136-145 [facility] WBC (Bld) [#/Vol] 8.4 10*3/uL 4.4-11.0 [facility] Basophil percentage 0-5 SEEN /hpf 0-5 [facility] Bilirubin Test strip Ql (U)O rdered By: Yair Lazcano on 12-27-2023 Bilirubin Ql (U) 1 mg/dL Negative [facility] Comment on above: COLOR OF URINE MAY A FFECT DIPSTICK RESULTS. Determination of erythrocyte mean corpuscular volume (MCV)Ordered By: Yair Lazcano on 12-27-2023 MCV (RBC) [Entitic vol] 106.8 fL 81-99 [facility] Direct bilirubinOrdered By: Yair Lazcano on 12-27-2023 Bilirubin.direct [Mass/Vol] 4.50 mg/dL 0.00-0.30 [facility] Erythrocyte distribution wid th ratioOrdered By: Yair Lazcano on 12-27-2023 Erythrocyte distribution width (RBC) [Ratio] 12.8 % 11.6-14.6 [facility] Erythrocyte distribution wid th standard deviationOrdered By: Yair Lazcano on 12-27-2023 Erythrocyte distribution width (RBC) [Entitic vol] 50.0 fL 35.1-43.9 [facility] Hematocrit Auto (Bld) [Volum e fraction]Ordered By: Yair Lazcano on 12-27-2023 Hematocrit (Bld) [Volume fraction] 29.7 % 37-47 [facility] Immature granulocytes/100 WB C Auto (Bld)Ordered By: Yair Lazcano on 12-27-2023 Immature granulocytes/100 WBC (Bld) 0.500 % 0.0-0.9 [facility] Comment on above: IG% - Immature Granu locytes (promyelocytes, myelocytes and metamyelocytes) > 1% indicates that a LEFT SHIFT is Present. Ketones Test strip Ql (U)Ord ered By: Yair Lazcano on 12-27-2023 Ketones Ql (U) 5 mg/dl Negative [facility] Laboratory - Chemistry and C hemistry - challengeOrdered By: Yair Lazcano on 12-27-2023 ALP [Catalytic activity/Vol] 218 U/L 45-117 [facility] ALT [Catalytic activity/Vol] 23 U/L 13-56 [facility] CO2 [Moles/Vol] 30.0 mmol/L 21.0-32.0 [facility] Globulin (S) [Mass/Vol] 3.6 g/dL 2.2-4.2 [facility] Lipase [Catalytic activity/Vol] 31 U/L 13-75 [facility] Comment on above: Please note:LIPASE r evised reference range effective 22. New Lipase methodology. Expected to produce lower values than the previous assay method. NEW Reference Range: 13 - 75 U/L Urea nitrogen/Creatinine [Mass ratio] 50.8 mg/mg 10-20 [facility] Laboratory - Chemistry and C hemistry - challengeOrdered By: Harrison Roper on 12-27-2023 Magnesium [Mass/Vol] 1.5 mg/dL 1.6-2.6 [facility] Laboratory - CoagulationOrde red By: Yair Lazcano on 12-27-2023 INR Coag (Bld) [Relative time] 1.3 {INR} [facility] PT Coag (PPP) [Time] 15.7 s 11.7-14.9 [facility] Laboratory - Hematology and Cell countsOrdered By: Yair Lazcano on 12-27-2023 MCH (RBC) [Entitic mass] 36.3 pg 27.0-32.0 [facility] MCHC (RBC) [Mass/Vol] 34.0 g/dL 32-36 [facility] Nucleated RBC/100 WBC (Bld) [Ratio] 0 % 0-5 [facility] Platelet mean volume (Bld) [Entitic vol] 9.5 fL 6.2-12.0 [facility] Platelets (Bld) [#/Vol] 102 10*3/uL 150-450 [facility] Lower GI hemoglobin IA Ql (S tl)Ordered By: Yair Lazcano on 12-27-2023 Stool Occult Blood (KENDRA) Positive [facility] Mucus LM Ql (Urine sed)Order ed By: Yair Lazcano on 12-27-2023 Mucus Ql (Urine sed) 0 SEEN /hpf [facility] Nitrite Test strip Ql (U)Ord ered By: Yair Lazcano on 12-27-2023 Nitrite Ql (U) Negative Negative [facility] No Panel InformationOrdered By: Yair Lazcano on 12-27-2023 Estimated GFR (MDRD) Amer 104 mL/min >60 [facility] Comment on above: GFR Calc Estimated GFR (MDRD) Non-Af Amer 86 mL/min >60 [facility] Comment on above: Non- GFR Calc Urine RBC 0-5 SEEN /hpf 0-5 [facility] Protein Test strip Ql (U)Ord ered By: Yair Lazcano on 12-27-2023 Protein Ql (U) 15 mg/dl Negative [facility] RBC Auto (Bld) [#/Vol]Ordere d By: Yair Lazcano on 12-27-2023 RBC (Bld) [#/Vol] 2.78 10*6/uL 4.2-5.4 [facility] Serum or plasma calcium seth urement (mass/volume)Ordered By: Yair Lazcano on 12-27-2023 Calcium [Mass/Vol] 9.6 mg/dL 8.5-10.1 [facility] Serum or plasma creatinine m easurement (mass/volume)Ordered By: Yair Lazcano on 12-27-2023 Creatinine [Mass/Vol] 0.71 mg/dL 0.55-1.02 [facility] Comment on above: The validity of the calculated GFR & GFRAA in patients over 70 years has not been determined. Clinical correlation is essential. Serum or plasma urea nitroge n measurement (mass/volume)Ordered By: Yair Lazcano on 12-27-2023 Urea nitrogen [Mass/Vol] 36 mg/dL 7-18 [facility] Squamous epithelial cells de tection in urine sediment by light microscopyOrdered By: Yair Lazcano on 12-27-2023 Epithelial cells.squamous LM Ql (Urine sed) 0 SEEN /hpf 5-10 [facility] Thin prep Papanicolaou smear with manual screeningOrdered By: Yair Lazcano on 12-27-2023 Thin prep Papanicolaou smear with manual screening 2.6 g/dL 3.2-5.0 [facility] Thin prep Papanicolaou smear with manual screening 57 U/L 15-37 [facility] Thin prep Papanicolaou smear with manual screening 8 5-15 [facility] Urine blood detectionOrdered By: Yair Lazcano on 12-27-2023 RBC Ql (U) 10 /ul Negative [facility] Urine clarityOrdered By: Arun Lazcano on 12-27-2023 Clarity (U) Sl. Cloudy Clear [facility] Urine color determinationOrd ered By: Yair Lazcano on 12-27-2023 Color (U) Yellow Yellow [facility] Urine glucose detectionOrder ed By: Yair Lazcano on 12-27-2023 Glucose Ql (U) Normal mg/dl Normal [facility] Urine leukocyte esterase det ection by dipstickOrdered By: Yair Lazcano on 12-27-2023 Leukocyte esterase Test strip Ql (U) 25 /ul Negative [facility] Urine pHOrdered By: Yair villegas on 12-27-2023 pH (U) 7.0 [pH] 5.0 - 8.0 [facility] Urine sediment bacteria coun t by microscopy (number/high power field)Ordered By: Yair Lazcano on 12-27-2023 Bacteria LM.HPF (Urine sed) [#/Area] 0 /[HPF] None Seen [facility] Urine specific gravity measu rementOrdered By: Yair Lazcano on 12-27-2023 Specific gravity (U) [Rel density] 1.005 1.002-1.03 0 [facility] Urine urobilinogen measureme ntOrdered By: Yair Lazcano on 12-27-2023 Urobilinogen Ql (U) 4 mg/dl Normal [facility] Basophil percentageOrdered B y: Solo Calderón on 11-15-2023 Ammonia (P) [Moles/Vol] 38.0 umol/L 11- [facility] Basophil percentageOrdered B y: Khnah Rodriguez on 11-15-2023 Chloride [Moles/Vol] 101 mmol/L 98-107 [facility] Glucose [Mass/Vol] 97 mg/dL 74-106 [facility] Potassium [Moles/Vol] 4.1 mmol/L 3.5-5.1 [facility] Sodium [Moles/Vol] 134 mmol/L 136-145 [facility] Laboratory - Chemistry and C hemistry - challengeOrdered By: Khanh Rodriguez on 11-15-2023 CO2 [Moles/Vol] 25.0 mmol/L 21.0-32.0 [facility] Urea nitrogen/Creatinine [Mass ratio] 10.7 mg/mg 10-20 [facility] No Panel InformationOrdered By: Khanh Rodriguez on 11-15-2023 Estimated GFR (MDRD) Amer 136 mL/min >60 [facility] Comment on above: GFR Calc Estimated GFR (MDRD) Non-Af Amer 113 mL/min >60 [facility] Comment on above: Non- GFR Calc Vitamin D 25-Hydroxy 66.3 ng/mL [facility] Comment on above: Vitamin D 25(OH) Sta tus Range Deficiency <20 ng/mL (50nmol/L) Insufficiency 20 - 30 ng/mL (50 - 75 nmol/L) Sufficiency 30 - 100 ng/mL (75 - 250 nmol/L) Toxicity >100 ng/mL (>250 nmol/L) No Panel InformationOrdered By: Solo Calderón on 11-15-2023 Folate 1.60 ng/mL 3.1-55.4 [facility] Serum or plasma calcium seth urement (mass/volume)Ordered By: Khanh Rodriguez on 11-15-2023 Calcium [Mass/Vol] 9.2 mg/dL 8.5-10.1 [facility] Serum or plasma creatinine m easurement (mass/volume)Ordered By: Khanh Rodriguez on 11-15-2023 Creatinine [Mass/Vol] 0.56 mg/dL 0.55-1.02 [facility] Comment on above: The validity of the calculated GFR & GFRAA in patients over 70 years has not been determined. Clinical correlation is essential. Serum or plasma thiamine mitul surement (mass/volume)Ordered By: Solo Calderón on 11-15-2023 Thiamine [Mass/Vol] 69.8 nmol/L 66.5-200.0 [facility] Comment on above: Performed at: [facility] - [facility] [address] [id number] Director: Lesly Carty MD, Phone: [phone] Serum or plasma urea nitroge n measurement (mass/volume)Ordered By: Khanh Rodriguez on 11-15-2023 Urea nitrogen [Mass/Vol] 6 mg/dL 7-18 [facility] Thin prep Papanicolaou smear with manual screeningOrdered By: Khanh Rodriguez on 11-15-2023 Thin prep Papanicolaou smear with manual screening 8 5-15 [facility] Basophil percentageOrdered B y: Khanh Rodriguez on 11-03-2023 Chloride [Moles/Vol] 92 mmol/L 98-107 [facility] Glucose [Mass/Vol] 105 mg/dL 74-106 [facility] Comment on above: Fasting Glucose resu lt from 100 to 125 mg/dL suggests IMPAIRED HOMEOSTASIS per A.D.A. criteria. Potassium [Moles/Vol] 2.9 mmol/L 3.5-5.1 [facility] Sodium [Moles/Vol] 130 mmol/L 136-145 [facility] Laboratory - Chemistry and C hemistry - challengeOrdered By: Khanh Rodriguez on 11-03-2023 CO2 [Moles/Vol] 30.0 mmol/L 21.0-32.0 [facility] Natriuretic peptide B (Bld) [Mass/Vol] 494.5 pg/mL 0-100 [facility] Urea nitrogen/Creatinine [Mass ratio] 15.2 mg/mg 10-20 [facility] No Panel InformationOrdered By: Khanh Rodriguez on 11-03-2023 Estimated GFR (MDRD) Amer 114 mL/min >60 [facility] Comment on above: GFR Calc Estimated GFR (MDRD) Non-Af Amer 94 mL/min >60 [facility] Comment on above: Non- GFR Calc Serum or plasma calcium seth urement (mass/volume)Ordered By: Khanh Rodriguez on 11-03-2023 Calcium [Mass/Vol] 9.5 mg/dL 8.5-10.1 [facility] Serum or plasma creatinine m easurement (mass/volume)Ordered By: Khanh Rodriguez on 11-03-2023 Creatinine [Mass/Vol] 0.66 mg/dL 0.55-1.02 [facility] Comment on above: The validity of the calculated GFR & GFRAA in patients over 70 years has not been determined. Clinical correlation is essential. Serum or plasma urea nitroge n measurement (mass/volume)Ordered By: Khanh Rodriguez on 11-03-2023 Urea nitrogen [Mass/Vol] 10 mg/dL 7-18 [facility] Thin prep Papanicolaou smear with manual screeningOrdered By: Sukhdevdanilomaryse Rodriguez on 11-03-2023 Thin prep Papanicolaou smear with manual screening 8 5-15 [facility] Basophil percentageOrdered B y: Shabbir Galaviz on 10-26-2023 Chloride [Moles/Vol] 87 mmol/L 98-107 [facility] Glucose [Mass/Vol] 124 mg/dL 74-106 [facility] Comment on above: Fasting Glucose resu lt from 100 to 125 mg/dL suggests IMPAIRED HOMEOSTASIS per A.D.A. criteria. Hemoglobin (Bld) [Mass/Vol] 11.6 g/dL 12.0-15.0 [facility] Potassium [Moles/Vol] 3.4 mmol/L 3.5-5.1 [facility] Comment on above: Moderate Hemolysis, Result may be falsely increased. Sodium [Moles/Vol] 125 mmol/L 136-145 [facility] WBC (Bld) [#/Vol] 5.2 10*3/uL 4.4-11.0 [facility] Determination of erythrocyte mean corpuscular volume (MCV)Ordered By: Shabbir Galaviz on 10-26-2023 MCV (RBC) [Entitic vol] 102.6 fL 81-99 [facility] Erythrocyte distribution wid th ratioOrdered By: Shabbir Galaviz on 10-26-2023 Erythrocyte distribution width (RBC) [Ratio] 15.9 % 11.6-14.6 [facility] Erythrocyte distribution wid th standard deviationOrdered By: Shabbir Galaviz on 10-26-2023 Erythrocyte distribution width (RBC) [Entitic vol] 58.5 fL 35.1-43.9 [facility] Hematocrit Auto (Bld) [Volum e fraction]Ordered By: Shabbir Galaviz on 10-26-2023 Hematocrit (Bld) [Volume fraction] 31.1 % 37-47 [facility] Laboratory - Chemistry and C hemistry - challengeOrdered By: Shabbir Galaviz on 10-26-2023 CO2 [Moles/Vol] 30.0 mmol/L 21.0-32.0 [facility] Urea nitrogen/Creatinine [Mass ratio] 9.0 mg/mg 10-20 [facility] Laboratory - Hematology and Cell countsOrdered By: Shabbir Galaviz on 10-26-2023 MCH (RBC) [Entitic mass] 38.3 pg 27.0-32.0 [facility] MCHC (RBC) [Mass/Vol] 37.3 g/dL 32-36 [facility] Platelet mean volume (Bld) [Entitic vol] 9.3 fL 6.2-12.0 [facility] Platelets (Bld) [#/Vol] 121 10*3/uL 150-450 [facility] No Panel InformationOrdered By: Shabbir Galaviz on 10-26-2023 Estimated Creatinine Clearance Calc 58.50 ml/min [facility] Estimated GFR (MDRD) Amer 111 mL/min >60 [facility] Comment on above: GFR Calc Estimated GFR (MDRD) Non-Af Amer 92 mL/min >60 [facility] Comment on above: Non- GFR Calc RBC Auto (Bld) [#/Vol]Ordere d By: Shabbir Galaviz on 10-26-2023 RBC (Bld) [#/Vol] 3.03 10*6/uL 4.2-5.4 [facility] Serum or plasma calcium seth urement (mass/volume)Ordered By: Shabbir Galaviz on 10-26-2023 Calcium [Mass/Vol] 8.9 mg/dL 8.5-10.1 [facility] Serum or plasma creatinine m easurement (mass/volume)Ordered By: Shabbir Galaviz on 10-26-2023 Creatinine [Mass/Vol] 0.67 mg/dL 0.55-1.02 [facility] Comment on above: The validity of the calculated GFR & GFRAA in patients over 70 years has not been determined. Clinical correlation is essential. Serum or plasma urea nitroge n measurement (mass/volume)Ordered By: Shabbir Galaviz on 10-26-2023 Urea nitrogen [Mass/Vol] 6 mg/dL 7-18 [facility] Thin prep Papanicolaou smear with manual screeningOrdered By: Shabbir Galaviz on 10-26-2023 Thin prep Papanicolaou smear with manual screening 8 5-15 [facility] Anaerobic cultureOrdered By: Mariela Martines on 08-16-2023 Bacteria identified Anaer cx Nom (Unsp spec) No growth in 5 days. [facility] Bacteria identified Anaer cx Nom (Unsp spec) No growth in 5 days. [facility] Bacteria identified Cx Nom ( Wound)Ordered By: Mariela Martines on 08-16-2023 Wound Culture Acinetobacter baumannii [facility] Wound Culture Acinetobacter baumannii [facility] Gram stain for investigation of transfusion reactionOrdered By: Mariela Martines on 08-16-2023 Microscopic observation Gram stain Nom (Unsp spec) [facility] Microscopic observation Gram stain Nom (Unsp spec) [facility] No Panel InformationOrdered By: Nabeel Patel on 07-10-2023 Miscellaneous Test Comment MAILED SPECIMEN [facility] Basophil percentageOrdered B y: Uday Brooks on 06-08-2023 Bilirubin [Mass/Vol] 1.70 mg/dL 0.20-1.00 [facility] Comment on above: For patients on eltr ombopag therapy, use of Dimension [place] TBIL is not recommended. Chloride [Moles/Vol] 98 mmol/L 98-107 [facility] Glucose [Mass/Vol] 111 mg/dL 74-106 [facility] Comment on above: Fasting Glucose resu lt from 100 to 125 mg/dL suggests IMPAIRED HOMEOSTASIS per A.D.A. criteria. Potassium [Moles/Vol] 3.8 mmol/L 3.5-5.1 [facility] Protein [Mass/Vol] 6.8 g/dL 6.4-8.2 [facility] Sodium [Moles/Vol] 132 mmol/L 136-145 [facility] WBC (Bld) [#/Vol] 5.1 10*3/uL 4.4-11.0 [facility] Blood erythrocytes count (nu mber/volume)Ordered By: Uday Brooks on 06-08-2023 RBC (Bld) [#/Vol] 3.40 10*6/uL 4.2-5.4 [facility] Blood hemoglobin measurement (mass/volume)Ordered By: Uday Brooks on 06-08-2023 Hemoglobin (Bld) [Mass/Vol] 12.2 g/dL 12.0-15.0 [facility] Blood platelet mean volumeOr dered By: Uday Brooks on 06-08-2023 Platelet mean volume (Bld) [Entitic vol] 8.8 fL 6.2-12.0 [facility] Determination of erythrocyte mean corpuscular volume (MCV)Ordered By: Uday Brooks on 06-08-2023 MCV (RBC) [Entitic vol] 100.9 fL 81-99 [facility] Hematocrit Auto (Bld) [Volum e fraction]Ordered By: Uday Brooks on 06-08-2023 Hematocrit (Bld) [Volume fraction] 34.3 % 37-47 [facility] INR in Blood by Coagulation assayOrdered By: Uday Brooks on 06-08-2023 INR Coag (Bld) [Relative time] 1.2 {INR} [facility] Laboratory - Chemistry and C hemistry - challengeOrdered By: Uday Brooks on 06-08-2023 ALP [Catalytic activity/Vol] 170 U/L 45-117 [facility] ALT [Catalytic activity/Vol] 20 U/L 13-56 [facility] CO2 [Moles/Vol] 30.0 mmol/L 21.0-32.0 [facility] Globulin (S) [Mass/Vol] 3.9 g/dL 2.2-4.2 [facility] Urea nitrogen/Creatinine [Mass ratio] 15.6 mg/mg 10-20 [facility] Laboratory - CoagulationOrde red By: Uday Brooks on 06-08-2023 aPTT Coag (Bld) [Time] 33.6 s 24.1-36.2 [facility] PT Coag (PPP) [Time] 15.0 s 11.7-14.9 [facility] Laboratory - Hematology and Cell countsOrdered By: Uday Brooks on 06-08-2023 Erythrocyte distribution width (RBC) [Entitic vol] 47.0 fL 35.1-43.9 [facility] Erythrocyte distribution width (RBC) [Ratio] 12.6 % 11.6-14.6 [facility] MCH (RBC) [Entitic mass] 35.9 pg 27.0-32.0 [facility] MCHC Auto (RBC) [Mass/Vol]Or dered By: Uday Brooks on 06-08-2023 MCHC (RBC) [Mass/Vol] 35.6 g/dL 32-36 [facility] No Panel InformationOrdered By: Uday rBooks on 06-08-2023 Estimated GFR (MDRD) Amer 118 mL/min >60 [facility] Comment on above: GFR Calc Estimated GFR (MDRD) Non-Af Amer 97 mL/min >60 [facility] Comment on above: Non- GFR Calc Platelets bldOrdered By: Anton Brooks on 06-08-2023 Platelets (Bld) [#/Vol] 109 10*3/uL 150-450 [facility] Serum or plasma albumin seth urement (mass/volume)Ordered By: Uday Brooks on 06-08-2023 Albumin [Mass/Vol] 2.9 g/dL 3.2-5.0 [facility] Serum or plasma albumin/glob ulin mass ratioOrdered By: Uday Brooks on 06-08-2023 Albumin/Globulin [Mass ratio] 0.7 {ratio} 0.9-2.4 [facility] Serum or plasma calcium seth urement (mass/volume)Ordered By: Uday Brooks on 06-08-2023 Calcium [Mass/Vol] 9.1 mg/dL 8.5-10.1 [facility] Serum or plasma creatinine m easurement (mass/volume)Ordered By: Uday Brooks on 06-08-2023 Creatinine [Mass/Vol] 0.64 mg/dL 0.55-1.02 [facility] Comment on above: The validity of the calculated GFR & GFRAA in patients over 70 years has not been determined. Clinical correlation is essential. Serum or plasma urea nitroge n measurement (mass/volume)Ordered By: Uday Brooks on 06-08-2023 Urea nitrogen [Mass/Vol] 10 mg/dL 7-18 [facility] Thin prep Papanicolaou smear with manual screeningOrdered By: Uday Brooks on 06-08-2023 Thin prep Papanicolaou smear with manual screening 35 U/L 15-37 [facility] Thin prep Papanicolaou smear with manual screening 4 5-15 [facility] Anaerobic cultureOrdered By: Mariela Martines on 05-23-2023 Bacteria identified Anaer cx Nom (Unsp spec) No anaerobic bacteria isolated. [facility] Bacteria identified Cx Nom ( Wound)Ordered By: Mariela Martines on 05-23-2023 Wound Culture Staphylococcus aureus [facility] Wound Culture Staphylococcus epidermidis [facility] Gram stain for investigation of transfusion reactionOrdered By: Mariela Martines on 05-23-2023 Microscopic observation Gram stain Nom (Unsp spec) [facility] Basophil percentageOrdered B y: Khanh Rodriguez on 05-03-2023 Ammonia (P) [Moles/Vol] 50.0 umol/L 11-32 [facility] Bilirubin [Mass/Vol] 2.60 mg/dL 0.20-1.00 [facility] Comment on above: For patients on eltr ombopag therapy, use of Dimension [place] TBIL is not recommended. Chloride [Moles/Vol] 100 mmol/L 98-107 [facility] Glucose [Mass/Vol] 101 mg/dL 74-106 [facility] Comment on above: Fasting Glucose resu lt from 100 to 125 mg/dL suggests IMPAIRED HOMEOSTASIS per A.D.A. criteria. Potassium [Moles/Vol] 4.4 mmol/L 3.5-5.1 [facility] Protein [Mass/Vol] 7.0 g/dL 6.4-8.2 [facility] Sodium [Moles/Vol] 133 mmol/L 136-145 [facility] Laboratory - Chemistry and C hemistry - challengeOrdered By: Khanh Rodriguez on 05-03-2023 ALP [Catalytic activity/Vol] 299 U/L 45-117 [facility] ALT [Catalytic activity/Vol] 30 U/L 13-56 [facility] Amylase [Catalytic activity/Vol] 1353 U/L 5-55 [facility] CO2 [Moles/Vol] 27.0 mmol/L 21.0-32.0 [facility] Globulin (S) [Mass/Vol] 4.1 g/dL 2.2-4.2 [facility] Urea nitrogen/Creatinine [Mass ratio] 13.8 mg/mg 10-20 [facility] No Panel InformationOrdered By: Khanh Rodriguez on 05-03-2023 Estimated GFR (MDRD) Amer 115 mL/min >60 [facility] Comment on above: GFR Calc Estimated GFR (MDRD) Non-Af Amer 95 mL/min >60 [facility] Comment on above: Non- GFR Calc Serum or plasma albumin seth urement (mass/volume)Ordered By: Khanh Rodriguez on 05-03-2023 Albumin [Mass/Vol] 2.9 g/dL 3.2-5.0 [facility] Serum or plasma albumin/glob ulin mass ratioOrdered By: Khanh Rodriguez on 05-03-2023 Albumin/Globulin [Mass ratio] 0.7 {ratio} 0.9-2.4 [facility] Serum or plasma calcium seth urement (mass/volume)Ordered By: Khanh Rodriguez on 05-03-2023 Calcium [Mass/Vol] 9.2 mg/dL 8.5-10.1 [facility] Serum or plasma creatinine m easurement (mass/volume)Ordered By: Khanh Rodriguez on 05-03-2023 Creatinine [Mass/Vol] 0.65 mg/dL 0.55-1.02 [facility] Comment on above: The validity of the calculated GFR & GFRAA in patients over 70 years has not been determined. Clinical correlation is essential. Serum or plasma urea nitroge n measurement (mass/volume)Ordered By: Khanh Rodriguez on 05-03-2023 Urea nitrogen [Mass/Vol] 9 mg/dL 7-18 [facility] Thin prep Papanicolaou smear with manual screeningOrdered By: Khanh Rodriguez on 05-03-2023 Thin prep Papanicolaou smear with manual screening 70 U/L 15-37 [facility] Thin prep Papanicolaou smear with manual screening 6 5-15 [facility] Absolute lymphocyte countOrd ered By: Khanh Rodriguez on 04-26-2023 Lymphocytes Auto (Unsp spec) [#/Vol] 1.05 10*3/uL 0.83-4.51 [facility] Basophil percentageOrdered B y: Khanh Rodriguez on 04-26-2023 Basophils/100 WBC (Bld) 0.8 % 0-1 [facility] Bilirubin [Mass/Vol] 3.10 mg/dL 0.20-1.00 [facility] Comment on above: For patients on eltr ombopag therapy, use of Dimension [place] TBIL is not recommended. Chloride [Moles/Vol] 96 mmol/L 98-107 [facility] Eosinophils/100 WBC (Bld) 0.8 % 0-5 [facility] Glucose [Mass/Vol] 107 mg/dL 74-106 [facility] Comment on above: Fasting Glucose resu lt from 100 to 125 mg/dL suggests IMPAIRED HOMEOSTASIS per A.D.A. criteria. Neutrophils (Bld) [#/Vol] 3.4 10*3/uL 2.0-7.7 [facility] Neutrophils/100 WBC (Bld) 68.5 % 47-70 [facility] Potassium [Moles/Vol] 3.9 mmol/L 3.5-5.1 [facility] Protein [Mass/Vol] 6.9 g/dL 6.4-8.2 [facility] Sodium [Moles/Vol] 131 mmol/L 136-145 [facility] WBC (Bld) [#/Vol] 5.0 10*3/uL 4.4-11.0 [facility] Blood erythrocytes count (nu mber/volume)Ordered By: Khanh Rodriguez on 04-26-2023 RBC (Bld) [#/Vol] 3.32 10*6/uL 4.2-5.4 [facility] Blood hemoglobin measurement (mass/volume)Ordered By: Khanh Rodriguez on 04-26-2023 Hemoglobin (Bld) [Mass/Vol] 12.0 g/dL 12.0-15.0 [facility] Blood lymphocytes/100 leukoc ytesOrdered By: Khanh Rodriguez on 04-26-2023 Lymphocytes/100 WBC (Bld) 21.2 % 19-41 [facility] Blood monocytes/100 leukocyt esOrdered By: Khanh Rodriguez on 04-26-2023 Monocytes/100 WBC (Bld) 8.3 % 0-10 [facility] Blood platelet mean volumeOr dered By: Khanh Rodriguez on 04-26-2023 Platelet mean volume (Bld) [Entitic vol] 8.9 fL 6.2-12.0 [facility] Determination of erythrocyte mean corpuscular volume (MCV)Ordered By: Khanh Rodriguez on 04-26-2023 MCV (RBC) [Entitic vol] 103.6 fL 81-99 [facility] Hematocrit Auto (Bld) [Volum e fraction]Ordered By: Avelbismarckfortino Rodriguez on 04-26-2023 Hematocrit (Bld) [Volume fraction] 34.4 % 37-47 [facility] Laboratory - Chemistry and C hemistry - challengeOrdered By: danilobismarckfortino Rodriguez on 04-26-2023 ALP [Catalytic activity/Vol] 258 U/L 45-117 [facility] ALT [Catalytic activity/Vol] 24 U/L 13-56 [facility] CO2 [Moles/Vol] 28.0 mmol/L 21.0-32.0 [facility] Globulin (S) [Mass/Vol] 4.0 g/dL 2.2-4.2 [facility] Urea nitrogen/Creatinine [Mass ratio] 12.9 mg/mg 10-20 [facility] Laboratory - Hematology and Cell countsOrdered By: [facility] Centerfortino Rodriguez on 04-26-2023 Erythrocyte distribution width (RBC) [Entitic vol] 51.7 fL 35.1-43.9 [facility] Erythrocyte distribution width (RBC) [Ratio] 13.5 % 11.6-14.6 [facility] Immature granulocytes/100 WBC (Bld) 0.400 % 0.0-0.9 [facility] Comment on above: IG% - Immature Granu locytes (promyelocytes, myelocytes and metamyelocytes) > 1% indicates that a LEFT SHIFT is Present. MCH (RBC) [Entitic mass] 36.1 pg 27.0-32.0 [facility] Nucleated RBC/100 WBC (Bld) [Ratio] 0 % 0-5 [facility] MCHC Auto (RBC) [Mass/Vol]Or dered By: Khanh Rodriguez on 04-26-2023 MCHC (RBC) [Mass/Vol] 34.9 g/dL 32-36 [facility] No Panel InformationOrdered By: Khanh Rodriguez on 04-26-2023 Estimated GFR (MDRD) Amer 122 mL/min >60 [facility] Comment on above: GFR Calc Estimated GFR (MDRD) Non-Af Amer 101 mL/min >60 [facility] Comment on above: Non- GFR Calc Platelets bldOrdered By: Francisco Rodriguez on 04-26-2023 Platelets (Bld) [#/Vol] 141 10*3/uL 150-450 [facility] Serum or plasma albumin seth urement (mass/volume)Ordered By: Khanh Rodriguez on 04-26-2023 Albumin [Mass/Vol] 2.9 g/dL 3.2-5.0 [facility] Serum or plasma albumin/glob ulin mass ratioOrdered By: Khanh Rodriguez on 04-26-2023 Albumin/Globulin [Mass ratio] 0.7 {ratio} 0.9-2.4 [facility] Serum or plasma calcium seth urement (mass/volume)Ordered By: Khanh Rodriguez on 04-26-2023 Calcium [Mass/Vol] 9.3 mg/dL 8.5-10.1 [facility] Serum or plasma creatinine m easurement (mass/volume)Ordered By: Khanh Rodriguez on 04-26-2023 Creatinine [Mass/Vol] 0.62 mg/dL 0.55-1.02 [facility] Comment on above: The validity of the calculated GFR & GFRAA in patients over 70 years has not been determined. Clinical correlation is essential. Serum or plasma urea nitroge n measurement (mass/volume)Ordered By: Khanh Rodriguez on 04-26-2023 Urea nitrogen [Mass/Vol] 8 mg/dL 7-18 [facility] Thin prep Papanicolaou smear with manual screeningOrdered By: Khanh Rodriguez on 04-26-2023 Thin prep Papanicolaou smear with manual screening 74 U/L 15-37 [facility] Thin prep Papanicolaou smear with manual screening 7 5-15 [facility] Anaerobic cultureOrdered By: Mariela Martines on 02-23-2023 Bacteria identified Anaer cx Nom (Unsp spec) No anaerobic bacteria isolated. [facility] Bacteria identified Cx Nom ( Wound)Ordered By: Mariela Martines on 02-23-2023 Wound Culture Staphylococcus epidermidis [facility] Gram stain for investigation of transfusion reactionOrdered By: Mariela Martines on 02-23-2023 Microscopic observation Gram stain Nom (Unsp spec) [facility] Anaerobic cultureOrdered By: Mariela Martines on 01-29-2023 Bacteria identified Anaer cx Nom (Unsp spec) No anaerobic bacteria isolated. [facility] Bacteria identified Cx Nom ( Wound)Ordered By: Mariela Martines on 01-28-2023 Wound Culture Pseudomonas aeruginosa [facility] Wound Culture Staphylococcus pseudintermediu [facility] Anaerobic cultureOrdered By: Mariela Martines on 01-25-2023 Bacteria identified Anaer cx Nom (Unsp spec) No anaerobic bacteria isolated. [facility] Bacteria identified Cx Nom ( Wound)Ordered By: Mariela Martines on 01-25-2023 Wound Culture Pseudomonas aeruginosa [facility] Wound Culture Staphylococcus pseudintermediu [facility] Gram stain for investigation of transfusion reactionOrdered By: Mariela Martines on 01-25-2023 Microscopic observation Gram stain Nom (Unsp spec) [facility] Absolute lymphocyte countOrd ered By: Dr. Rodriguez on 01-20-2023 Lymphocytes Auto (Unsp spec) [#/Vol] 1.02 10*3/uL 0.83-4.51 [facility] Basophil percentageOrdered B y: Dr. Rodriguez on 01-20-2023 Basophils/100 WBC (Bld) 1.0 % 0-1 [facility] Bilirubin [Mass/Vol] 2.80 mg/dL 0.20-1.00 [facility] Comment on above: For patients on eltr ombopag therapy, use of Dimension [place] TBIL is not recommended. Chloride [Moles/Vol] 81 mmol/L 98-107 [facility] Cholesterol [Mass/Vol] 191 mg/dL <200 [facility] Comment on above: <200 mg/dL Desirable 200-240 mg/dL Borderline >240 mg/dL High Risk Eosinophils/100 WBC (Bld) 1.4 % 0-5 [facility] Glucose [Mass/Vol] 114 mg/dL 74-106 [facility] Comment on above: Fasting Glucose resu lt from 100 to 125 mg/dL suggests IMPAIRED HOMEOSTASIS per A.D.A. criteria. Neutrophils (Bld) [#/Vol] 3.3 10*3/uL 2.0-7.7 [facility] Neutrophils/100 WBC (Bld) 64.6 % 47-70 [facility] Potassium [Moles/Vol] 2.7 mmol/L 3.5-5.1 [facility] Comment on above: Critical Result(s) C alled at: 13:29:15 01/20/2023 by: eBbo Bolivar. Estevan Olivarez RN ([place]). Results read back by same. Protein [Mass/Vol] 7.3 g/dL 6.4-8.2 [facility] Sodium [Moles/Vol] 125 mmol/L 136-145 [facility] Triglyceride [Mass/Vol] 70 mg/dL <199 [facility] Comment on above: The drugs N-Acetylcy steine and Metamizole may falsely depress this assay.Serum Triglycerides Reference Interval Normal <150 mg/dL Borderline high 150 - 199 mg/dL High 200 - 499 mg/dL Very High > or = 500 mg/dL WBC (Bld) [#/Vol] 5.1 10*3/uL 4.4-11.0 [facility] Blood erythrocytes count (nu mber/volume)Ordered By: Dr. Rodriguez on 01-20-2023 RBC (Bld) [#/Vol] 3.14 10*6/uL 4.2-5.4 [facility] Blood hemoglobin measurement (mass/volume)Ordered By: Dr. Rodriguez on 01-20-2023 Hemoglobin (Bld) [Mass/Vol] 11.6 g/dL 12.0-15.0 [facility] Blood lymphocytes/100 leukoc ytesOrdered By: Dr. Rodriguez on 01-20-2023 Lymphocytes/100 WBC (Bld) 19.9 % 19-41 [facility] Blood monocytes/100 leukocyt esOrdered By: Dr. Rodriguez on 01-20-2023 Monocytes/100 WBC (Bld) 12.7 % 0-10 [facility] Blood platelet mean volumeOr dered By: Dr. Rodriguez on 01-20-2023 Platelet mean volume (Bld) [Entitic vol] 9.7 fL 6.2-12.0 [facility] Determination of erythrocyte mean corpuscular volume (MCV)Ordered By: Dr. Rodriguez on 01-20-2023 MCV (RBC) [Entitic vol] 101.3 fL 81-99 [facility] Hematocrit Auto (Bld) [Volum e fraction]Ordered By: Dr. Rodriguez on 01-20-2023 Hematocrit (Bld) [Volume fraction] 31.8 % 37-47 [facility] Laboratory - Chemistry and C hemistry - challengeOrdered By: Dr. Rodriguez on 01-20-2023 ALP [Catalytic activity/Vol] 203 U/L 45-117 [facility] ALT [Catalytic activity/Vol] 26 U/L 13-56 [facility] CO2 [Moles/Vol] 33.0 mmol/L 21.0-32.0 [facility] Free T4 [Mass/Vol] 1.45 ng/dL 0.76-1.46 [facility] Globulin (S) [Mass/Vol] 4.1 g/dL 2.2-4.2 [facility] Urea nitrogen/Creatinine [Mass ratio] 17.1 mg/mg 10-20 [facility] Laboratory - Hematology and Cell countsOrdered By: Dr. Rodriguez on 01-20-2023 Erythrocyte distribution width (RBC) [Entitic vol] 58.4 fL 35.1-43.9 [facility] Erythrocyte distribution width (RBC) [Ratio] 15.9 % 11.6-14.6 [facility] Immature granulocytes/100 WBC (Bld) 0.400 % 0.0-0.9 [facility] Comment on above: IG% - Immature Granu locytes (promyelocytes, myelocytes and metamyelocytes) > 1% indicates that a LEFT SHIFT is Present. MCH (RBC) [Entitic mass] 36.9 pg 27.0-32.0 [facility] Nucleated RBC/100 WBC (Bld) [Ratio] 0 % 0-5 [facility] MCHC Auto (RBC) [Mass/Vol]Or dered By: Dr. Rodriguez on 01-20-2023 MCHC (RBC) [Mass/Vol] 36.5 g/dL 32-36 [facility] No Panel InformationOrdered By: Dr. Rodriguez on 01-20-2023 Estimated GFR (MDRD) Amer 168 mL/min >60 [facility] Comment on above: GFR Calc Estimated GFR (MDRD) Non-Af Amer 139 mL/min >60 [facility] Comment on above: Non- GFR Calc Thyroid Stimulating Hormone (TSH) 0.99 uIU/mL 0.358-3.74 [facility] Platelets bldOrdered By: Dr. Rodriguez on 01-20-2023 Platelets (Bld) [#/Vol] 114 10*3/uL 150-450 [facility] Serum or plasma albumin seth urement (mass/volume)Ordered By: Dr. Rodriguez on 01-20-2023 Albumin [Mass/Vol] 3.2 g/dL 3.2-5.0 [facility] Serum or plasma albumin/glob ulin mass ratioOrdered By: Dr. Rodriguez on 01-20-2023 Albumin/Globulin [Mass ratio] 0.8 {ratio} 0.9-2.4 [facility] Serum or plasma calcium seth urement (mass/volume)Ordered By: Dr. Rodriguez on 01-20-2023 Calcium [Mass/Vol] 9.2 mg/dL 8.5-10.1 [facility] Serum or plasma cholesterol in HDL measurement (mass/volume)Ordered By: Dr. Rodriguez on 01-20-2023 Cholesterol in HDL [Mass/Vol] 119 mg/dL >40 [facility] Comment on above: The drugs N-Acetylcy steine and Metamizole may falsely depress this assay. Reference Range HDL <40 mg/dL Low HDL Cholesterol HDL >or= 60 mg/dL High HDL Cholesterol Serum or plasma cholesterol in VLDL measurement (mass/volume)Ordered By: Dr. Rodriguez on 01-20-2023 Cholesterol in VLDL [Mass/Vol] 14 mg/dL 5-40 [facility] Serum or plasma creatinine m easurement (mass/volume)Ordered By: Dr. Rodriguez on 01-20-2023 Creatinine [Mass/Vol] 0.47 mg/dL 0.55-1.02 [facility] Comment on above: The validity of the calculated GFR & GFRAA in patients over 70 years has not been determined. Clinical correlation is essential. Serum or plasma low density lipoprotein (LDL) cholesterol measurement (mass/volume)Ordered By: Dr. Rodriguez on 01-20-2023 Cholesterol in LDL [Mass/Vol] 58 mg/dL 0-130 [facility] Serum or plasma urea nitroge n measurement (mass/volume)Ordered By: Dr. Rodriguez on 01-20-2023 Urea nitrogen [Mass/Vol] 8 mg/dL 7-18 [facility] Thin prep Papanicolaou smear with manual screeningOrdered By: Dr. Rodriguez on 01-20-2023 Thin prep Papanicolaou smear with manual screening 79 U/L 15-37 [facility] Thin prep Papanicolaou smear with manual screening 11 5-15 [facility] Basophil percentageon 2021 Chloride [Moles/Vol] 93 mmol/L 98-107 [facility] Work Phone: Glucose [Mass/Vol] 86 mg/dL 74-106 [facility] Work Phone: Potassium [Moles/Vol] 3.7 mmol/L 3.5-5.1 [facility] Work Phone: Sodium [Moles/Vol] 131 mmol/L 136-145 [facility] Work Phone: Laboratory - Chemistry and C hemistry - challengeon 05-31-2022 CO2 [Moles/Vol] 28.0 mmol/L 21.0-32.0 [facility] Work Phone: Urea nitrogen/Creatinine [Mass ratio] 13.2 mg/mg 10-20 [facility] Work Phone: No Panel Informationon 05-31 Estimated GFR (MDRD) Amer 147 mL/min >60 [facility] Work Phone: Comment on above: GFR Calc Estimated GFR (MDRD) Non-Af Amer 121 mL/min >60 [facility] Work Phone: Comment on above: Non- GFR Calc Serum or plasma calcium seth urement (mass/volume)on 05-31-2022 Calcium [Mass/Vol] 9.4 mg/dL 8.5-10.1 [facility] Work Phone: Serum or plasma creatinine m easurement (mass/volume)on 05-31-2022 Creatinine [Mass/Vol] 0.53 mg/dL 0.55-1.02 [facility] Work Phone: Comment on above: The validity of the calculated GFR & GFRAA in patients over 70 years has not been determined. Clinical correlation is essential. Serum or plasma urea nitroge n measurement (mass/volume)on 05-31-2022 Urea nitrogen [Mass/Vol] 7 mg/dL 7-18 [facility] Work Phone: Thin prep Papanicolaou smear with manual screeningon 05-31-2022 Thin prep Papanicolaou smear with manual screening 10 5-15 [facility] Work Phone: Basophil percentageon 2021 Bilirubin [Mass/Vol] 1.70 mg/dL 0.20-1.00 [facility] Work Phone: Comment on above: For patients on eltr ombopag therapy, use of Dimension [place] TBIL is not recommended. Chloride [Moles/Vol] 93 mmol/L 98-107 [facility] Work Phone: Glucose [Mass/Vol] 133 mg/dL 74-106 [facility] Work Phone: Comment on above: Fasting Glucose resu lt greater than or equal to 126 mg/dL suggests DIABETES MELLITUS per A.D.A. criteria. Potassium [Moles/Vol] 3.4 mmol/L 3.5-5.1 [facility] Work Phone: Protein [Mass/Vol] 7.5 g/dL 6.4-8.2 [facility] Work Phone: Sodium [Moles/Vol] 129 mmol/L 136-145 [facility] Work Phone: Laboratory - Chemistry and C hemistry - challengeon 08-08-2022 ALP [Catalytic activity/Vol] 186 U/L 45-117 [facility] Work Phone: ALT [Catalytic activity/Vol] 56 U/L 13-56 [facility] Work Phone: CO2 [Moles/Vol] 30.0 mmol/L 21.0-32.0 [facility] Work Phone: Globulin (S) [Mass/Vol] 4.0 g/dL 2.2-4.2 [facility] Work Phone: Urea nitrogen/Creatinine [Mass ratio] 20.0 mg/mg 10-20 [facility] Work Phone: No Panel Informationon 04-11 Estimated GFR (MDRD) Amer 127 mL/min >60 [facility] Work Phone: Comment on above: GFR Calc Estimated GFR (MDRD) Non-Af Amer 105 mL/min >60 [facility] Work Phone: Comment on above: Non- GFR Calc Vitamin D 25-Hydroxy 59.9 ng/mL [facility] Work Phone: Comment on above: Vitamin D 25(OH) Sta tus Range Deficiency <20 ng/mL (50nmol/L) Insufficiency 20 - 30 ng/mL (50 - 75 nmol/L) Sufficiency 30 - 100 ng/mL (75 - 250 nmol/L) Toxicity >100 ng/mL (>250 nmol/L) Serum or plasma albumin seth urement (mass/volume)on 04-11-2022 Albumin [Mass/Vol] 3.5 g/dL 3.2-5.0 [facility] Work Phone: Serum or plasma albumin/glob ulin mass ratioon 04-11-2022 Albumin/Globulin [Mass ratio] 0.9 {ratio} 0.9-2.4 [facility] Work Phone: Serum or plasma calcium seth urement (mass/volume)on 04-11-2022 Calcium [Mass/Vol] 9.1 mg/dL 8.5-10.1 [facility] Work Phone: Serum or plasma creatinine m easurement (mass/volume)on 04-11-2022 Creatinine [Mass/Vol] 0.60 mg/dL 0.55-1.02 [facility] Work Phone: Comment on above: The validity of the calculated GFR & GFRAA in patients over 70 years has not been determined. Clinical correlation is essential. Serum or plasma urea nitroge n measurement (mass/volume)on 04-11-2022 Urea nitrogen [Mass/Vol] 12 mg/dL 7-18 [facility] Work Phone: Thin prep Papanicolaou smear with manual screeningon 04-11-2022 Thin prep Papanicolaou smear with manual screening 131 U/L 15-37 [facility] Work Phone: Thin prep Papanicolaou smear with manual screening 6 5-15 [facility] Work Phone: Absolute lymphocyte counton 03-25-2022 Lymphocytes Auto (Unsp spec) [#/Vol] 1.37 10*3/uL 0.83-4.51 [facility] Work Phone: Basophil percentageon 2021 Basophils/100 WBC (Bld) 1.1 % 0-1 [facility] Work Phone: Bilirubin [Mass/Vol] 1.50 mg/dL 0.20-1.00 [facility] Work Phone: Comment on above: For patients on eltr ombopag therapy, use of Dimension [place] TBIL is not recommended. Chloride [Moles/Vol] 88 mmol/L 98-107 [facility] Work Phone: Eosinophils/100 WBC (Bld) 2.5 % 0-5 [facility] Work Phone: Glucose [Mass/Vol] 105 mg/dL 74-106 [facility] Work Phone: Comment on above: Fasting Glucose resu lt from 100 to 125 mg/dL suggests IMPAIRED HOMEOSTASIS per A.D.A. criteria. Neutrophils (Bld) [#/Vol] 3.0 10*3/uL 2.0-7.7 [facility] Work Phone: Neutrophils/100 WBC (Bld) 56.5 % 47-70 [facility] Work Phone: Potassium [Moles/Vol] 3.7 mmol/L 3.5-5.1 [facility] Work Phone: Protein [Mass/Vol] 8.0 g/dL 6.4-8.2 [facility] Work Phone: Sodium [Moles/Vol] 129 mmol/L 136-145 [facility] Work Phone: WBC (Bld) [#/Vol] 5.2 10*3/uL 4.4-11.0 [facility] Work Phone: Blood erythrocytes count (nu mber/volume)on 03-25-2022 RBC (Bld) [#/Vol] 4.46 10*6/uL 4.2-5.4 [facility]: Blood hemoglobin measurement (mass/volume)on 03-25-2022 Hemoglobin (Bld) [Mass/Vol] 12.7 g/dL 12.0-15.0 [facility] Work Phone: Blood lymphocytes/100 leukoc yteson 03-25-2022 Lymphocytes/100 WBC (Bld) 26.1 % 19-41 [facility] Work Phone: Blood monocytes/100 leukocyt eson 03-25-2022 Monocytes/100 WBC (Bld) 13.4 % 0-10 [facility] Work Phone: Blood platelet mean volumeon 03-25-2022 Platelet mean volume (Bld) [Entitic vol] 9.0 fL 6.2-12.0 [facility] Work Phone: Determination of erythrocyte mean corpuscular volume (MCV)on 07-22-2022 MCV (RBC) [Entitic vol] 83.4 fL 81-99 [facility] Work Phone: Hematocrit Auto (Bld) [Volum e fraction]on 03-25-2022 Hematocrit (Bld) [Volume fraction] 37.2 % 37-47 [facility] Work Phone: Laboratory - Chemistry and C hemistry - challengeon 03-25-2022 ALP [Catalytic activity/Vol] 164 U/L 45-117 [facility] Work Phone: ALT [Catalytic activity/Vol] 45 U/L 13-56 [facility] Work Phone: CO2 [Moles/Vol] 30.0 mmol/L 21.0-32.0 [facility] Work Phone: Globulin (S) [Mass/Vol] 4.4 g/dL 2.2-4.2 [facility] Work Phone: Urea nitrogen/Creatinine [Mass ratio] 15.3 mg/mg 10-20 [facility] Work Phone: Laboratory - Hematology and Cell countson 03-25-2022 Erythrocyte distribution width (RBC) [Entitic vol] 55.1 fL 35.1-43.9 [facility] Work Phone: Erythrocyte distribution width (RBC) [Ratio] 18.3 % 11.6-14.6 [facility] Work Phone: Immature granulocytes/100 WBC (Bld) 0.400 % 0.0-0.9 [facility] Work Phone: Comment on above: IG% - Immature Granu locytes (promyelocytes, myelocytes and metamyelocytes) > 1% indicates that a LEFT SHIFT is Present. MCH (RBC) [Entitic mass] 28.5 pg 27.0-32.0 [facility] Work Phone: Nucleated RBC/100 WBC (Bld) [Ratio] 0 % 0-5 [facility] Work Phone: MCHC Auto (RBC) [Mass/Vol]on 03-25-2022 MCHC (RBC) [Mass/Vol] 34.1 g/dL 32-36 [facility] Work Phone: No Panel Informationon 03-25 Estimated GFR (MDRD) Amer 130 mL/min >60 [facility] Work Phone: Comment on above: GFR Calc Estimated GFR (MDRD) Non-Af Amer 108 mL/min >60 [facility] Work Phone: Comment on above: Non- GFR Calc Platelets bldon 03-25-2022 Platelets (Bld) [#/Vol] 203 10*3/uL 150-450 [facility] Work Phone: Serum or plasma albumin seth urement (mass/volume)on 03-25-2022 Albumin [Mass/Vol] 3.6 g/dL 3.2-5.0 [facility] Work Phone: Serum or plasma albumin/glob ulin mass ratioon 03-25-2022 Albumin/Globulin [Mass ratio] 0.8 {ratio} 0.9-2.4 [facility] Work Phone: Serum or plasma calcium seth urement (mass/volume)on 03-25-2022 Calcium [Mass/Vol] 9.7 mg/dL 8.5-10.1 [facility] Work Phone: Serum or plasma creatinine m easurement (mass/volume)on 03-25-2022 Creatinine [Mass/Vol] 0.59 mg/dL 0.55-1.02 [facility] Work Phone: Comment on above: The validity of the calculated GFR & GFRAA in patients over 70 years has not been determined. Clinical correlation is essential. Serum or plasma urea nitroge n measurement (mass/volume)on 03-25-2022 Urea nitrogen [Mass/Vol] 9 mg/dL 7-18 [facility] Work Phone: Thin prep Papanicolaou smear with manual screeningon 03-25-2022 Thin prep Papanicolaou smear with manual screening 113 U/L 15-37 [facility] Work Phone: Thin prep Papanicolaou smear with manual screening 11 5-15 [facility] Work Phone: CBC WITH AUTO DIFFon 021 BASO, ABSOLUTE (AUTO) 0.1 10 3/uL Normal 0.0-0.2 [facility] Comment on above: Performed By: #### C MP, CPK 1, CBC, TROP 1 #### Main Lab - [facility] [address] [place] [address] Basophils/100 WBC (Bld) 1.4 % High 0.0-1.0 [facility] Comment on above: Performed By: #### C MP, CPK 1, CBC, TROP 1 #### Main Lab - [facility] [address] [place] [address] EOSINOPHILS, ABSOLUTE (AUTO) 0.1 10 3/uL Normal 0.0-0.7 [facility] Comment on above: Performed By: #### C MP, CPK 1, CBC, TROP 1 #### Main Lab - [facility] [address] [place] [address] Eosinophils/100 WBC (Bld) 1.1 % Normal 0.0-5.0 [facility] Comment on above: Performed By: #### C MP, CPK 1, CBC, TROP 1 #### Main Lab - [facility] [address] [place] [address] Erythrocyte distribution width (RBC) [Ratio] 14.4 % High 11.5-14.0 [facility] Comment on above: Performed By: #### C MP, CPK 1, CBC, TROP 1 #### Main Lab - [facility] [address] [place] [address] Hematocrit (Bld) [Volume fraction] 32.4 % Low 34.8-45.0 [facility] Comment on above: Performed By: #### C MP, CPK 1, CBC, TROP 1 #### Main Lab - [facility] [address] [place] [address] Hemoglobin (Bld) [Mass/Vol] 11.4 g/dL Low 11.6-14.9 [facility] Comment on above: Performed By: #### C MP, CPK 1, CBC, TROP 1 #### [facility] - [address] [address] LYMPHOCYTES, ABSOLUTE (AUTO) 1.2 10 3/uL Normal 1.0-3.5 [facility] Comment on above: Performed By: #### C MP, CPK 1, CBC, TROP 1 #### [facility] - [address] [address] Lymphocytes/100 WBC (Bld) 18.4 % Low 24.0-44.0 [facility] Comment on above: Performed By: #### C MP, CPK 1, CBC, TROP 1 #### [facility] - [address] [address] MCH (RBC) [Entitic mass] 36.4 pg High 27.0-31.0 [facility] Comment on above: Performed By: #### C MP, CPK 1, CBC, TROP 1 #### [facility] - [address] [address] MCHC (RBC) [Mass/Vol] 35.1 g/dL Normal 32.0-36.0 [facility] Comment on above: Performed By: #### C MP, CPK 1, CBC, TROP 1 #### [facility] - [address] [address] MCV (RBC) [Entitic vol] 103.6 fL High 78.0-100.0 [facility] Comment on above: Performed By: #### C MP, CPK 1, CBC, TROP 1 #### [facility] - [address] [address] MONOCYTES, ABSOLUTE (AUTO) 0.7 10 3/uL Normal 0.2-0.8 [facility] Comment on above: Performed By: #### C MP, CPK 1, CBC, TROP 1 #### [address] [address] Monocytes/100 WBC (Bld) 10.5 % High 1.7-9.3 [facility] Comment on above: Performed By: #### C MP, CPK 1, CBC, TROP 1 #### Main Lab - [facility] [address] NEUTROPHILS, ABSOLUTE (AUTO) 4.3 10 3/uL Normal 1.5-6.7 [facility] Comment on above: Performed By: #### C MP, CPK 1, CBC, TROP 1 #### Main Lab - [address] [address] Neutrophils/100 WBC (Bld) 68.6 % High 36.0-66.0 [facility] Comment on above: Performed By: #### C MP, CPK 1, CBC, TROP 1 #### Main Lab - [address] [address] PLATELET COUNT 163 10 3/uL Normal 150-450 [facility] Comment on above: Performed By: #### C MP, CPK 1, CBC, TROP 1 #### [facility] - [address] [address] Platelet mean volume (Bld) [Entitic vol] 7.2 fL Normal 6.0-9.5 [facility] Comment on above: Performed By: #### C MP, CPK 1, CBC, TROP 1 #### [facility] - [address] [address] RED BLOOD COUNT 3.13 x10 6/uL Low 3.89-5.30 [facility] Comment on above: Performed By: #### C MP, CPK 1, CBC, TROP 1 #### [facility] - [address] [address] WHITE BLOOD COUNT 6.3 10 3/uL Normal 4.0-10.5 [facility] Comment on above: Performed By: #### C MP, CPK 1, CBC, TROP 1 #### Main Lab - [address] [address] COMPREHENSIVE METABOLIC PANE Satinder 05-05-2021 Albumin [Mass/Vol] 3.5 g/dL Low 3.9-5.0 [facility] Comment on above: Performed By: #### C MP, CPK 1, CBC, TROP 1 #### Main Lab - [facility] [address] Albumin/Globulin [Mass ratio] 1.0 {ratio} Low 1.1-1.8 [facility] Comment on above: Performed By: #### C MP, CPK 1, CBC, TROP 1 #### Main Lab - [address] [address] ALP [Catalytic activity/Vol] 122 U/L Normal 43-122 [facility] Comment on above: Performed By: #### C MP, CPK 1, CBC, TROP 1 #### Main Lab - [address] [address] ALT [Catalytic activity/Vol] 25 U/L Normal 7-56 [facility] Comment on above: Performed By: #### C MP, CPK 1, CBC, TROP 1 #### Main Lab - [address] [address] Anion gap [Moles/Vol] 16 mmol/L Normal 9-18 [facility] Comment on above: Performed By: #### C MP, CPK 1, CBC, TROP 1 #### Main Lab - [address] [address] AST [Catalytic activity/Vol] 44 U/L High 8-39 [facility] Comment on above: Performed By: #### C MP, CPK 1, CBC, TROP 1 #### [facility] - [address] [address] Bilirubin [Mass/Vol] 1.7 mg/dL High 0.2-1.3 [facility] Comment on above: Performed By: #### C MP, CPK 1, CBC, TROP 1 #### Main Lab - [address] [address] BUN/CREATININE RATIO 21.3 Ratio Normal 5.0-42.0 [facility] Comment on above: Performed By: #### C MP, CPK 1, CBC, TROP 1 #### Main Lab - [address] [address] Calcium [Mass/Vol] 9.2 mg/dL Normal 8.4-10.2 [facility] Comment on above: Performed By: #### C MP, CPK 1, CBC, TROP 1 #### Main Lab - [facility] [address] [place], [place] [address] Chloride [Moles/Vol] 94 mmol/L Low 98-107 [facility] Comment on above: Performed By: #### C MP, CPK 1, CBC, TROP 1 #### Main Lab - [facility] [address] [place], [place] [address] CO2 [Moles/Vol] 25 mmol/L Normal 22-31 [facility] Comment on above: Performed By: #### C MP, CPK 1, CBC, TROP 1 #### Main Lab - [facility] [address] [place], [place] [address] Creatinine [Mass/Vol] 0.61 mg/dL Low 0.80-1.30 [facility] Comment on above: Performed By: #### C MP, CPK 1, CBC, TROP 1 #### Main Lab - [facility] [place], [place] [address] ESTIMATED CREAT CLEARANCE 78.32 Normal [facility] Comment on above: Result Comment: COCK CROFT-GAULT FORMULA 1972 Performed By: #### C MP, CPK 1, CBC, TROP 1 #### Main Lab - [facility] [place], [place] [address] ESTIMATED GLOMERULAR FILT RATE > 60.000 [facility] Comment on above: Performed By: #### C MP, CPK 1, CBC, TROP 1 #### Main Lab - [facility] [place], [place] [address] Globulin (S) [Mass/Vol] 3.5 g/dL Normal [facility] Comment on above: Performed By: #### C MP, CPK 1, CBC, TROP 1 #### Main Lab - [facility] [address] [place] [address] Glucose [Mass/Vol] 95 mg/dL Normal 70-99 [facility] Comment on above: Result Comment: The glucose range is based on recommendations from the [place] [employer] for fasting blood glucose range. Performed By: #### C MP, CPK 1, CBC, TROP 1 #### Main Lab - [facility] [place], [place] [address] Potassium [Moles/Vol] 3.7 mmol/L Normal 3.6-5.0 [facility] Comment on above: Performed By: #### C MP, CPK 1, CBC, TROP 1 #### Main Lab - [facility] [address] [place] [address] Protein [Mass/Vol] 7.0 g/dL Normal 6.3-8.2 [facility] Comment on above: Performed By: #### C MP, CPK 1, CBC, TROP 1 #### Main Lab - [facility] [address] [place] [address] Sodium [Moles/Vol] 131 mmol/L Low 137-145 [facility] Comment on above: Performed By: #### C MP, CPK 1, CBC, TROP 1 #### Main Lab - [facility] [address] [place] [address] Urea nitrogen [Mass/Vol] 13 mg/dL Normal 7-21 [facility] Comment on above: Performed By: #### C MP, CPK 1, CBC, TROP 1 #### Main Lab - [facility] [address] [place] [address] AGE,PATIENT 70 Years Normal [facility] Comment on above: Performed By: #### C MP, CPK 1, CBC, TROP 1 #### Main Lab - [facility] [address] [place] [address] CREATINE KINASEon 05-05-2021 CK [Catalytic activity/Vol] 31 U/L Low 55-170 [facility] Comment on above: Performed By: #### C MP, CPK 1, CBC, TROP 1 #### Main Lab - [facility] [address] [place] [address] HEAD W/O CONTRASTon 05-05 CT HEAD W/O CONTRAST [facility] [address] [place] [address] Diagnostic Imaging Report : [id number] Signed Name: MARY ALICE GA MRUN: [id number] : 1950 Loc: ED Age / Sex: 70 / F ADM Status: REG ER ADM Date: 05/05/21 Room/Bed: Ordering Physician: Isaiah Bhakta PA-C Procedure: CT HEAD W/O CONTRAST Order Number(s): [id number] Ordered Date: 05/05/21 Ordered Time: 1241 EXAMINATION: CT OF THE HEAD WITHOUT CONTRAST 05/05/2021 1:21 pm TECHNIQUE: CT of the head was performed without the administration of intravenous contrast. Dose modulation, iterative reconstruction, and/or weight based adjustment of the mA/kV was utilized to reduce the radiation dose to as low as reasonably achievable. COMPARISON: None available to me at the time of this interpretation. HISTORY: Dizziness, head injury 10 days ago FINDINGS: Beam-hardening artifacts related to bilateral ear piercings slightly limit evaluation of nearby structures. Given these: BRAIN/VENTRICLES: This exam is grossly negative for acute intracranial hemorrhage, other intra-/extra-axial fluid collection, or mass effect/midline shift. Mild atherosclerotic calcification is scattered about the cavernous/supraclinoid segments of both internal carotid arteries, with trace involvement of both distal vertebral arteries. There is minimal mixed confluent and scattered leukoaraiosis, compatible with sequela of chronic microvascular ischemic disease. There is slight asymmetric ectasia of the left lateral ventricle relative to the right side, most likely developmental, with otherwise age-appropriate, generalized parenchymal volume loss. ORBITS: The lenses of both globes are not well demonstrated, possibly previously surgically replaced. SINUSES/MASTOIDS: Trace scattered paranasal sinus mucosal thickening is most notable within the ethmoid sinus. MUSCULOSKELETAL: There is background diffuse osteopenia. At least minimal upper cervical degenerative disease is only incidentally demonstrated. . IMPRESSION: 1. Slightly limited exam, grossly negative for acute intracranial process, within the limits of this non-contrast CT exam. 2. Sequela of atherosclerotic arterial and chronic microvascular ischemic disease, as described. 3. Slight asymmetric ectasia of the left lateral ventricle relative to the right side, most likely developmental, with otherwise age-appropriate, generalized parenchymal volume loss. . RECOMMENDATIONS: 1. If hyperacute/acute infarction is clinically suspected, and/or if unexplained symptoms persist, consider CT-Perfusion/CT angiography vs MRI of the brain, without and with contrast, for further evaluation, as directed by the neurologic exam. . Dictated By: Dipak Zapien MD Dictated Date/Time: 05/05/21 1322 Signed By: Dipak Zapien MD, MD Signed Date/Time: 05/05/21 1331 Transcribed Date/Time: 05/05/21 1327 Normal [facility] ED Physician Documentationon 05-05-2021 ED Physician Documentation [address] [place] [address] Physician Documentation Signed: Name: MARY ALICE GA MRUN: [id number] : 1950 Loc: ED Age / Sex: 70/ F Adm Status: REG ER Adm Date:05/05/21 Room/Bed: Disposition Decision - General Final diagnosis: Coccyx contusion, Dizziness, Encounter for removal of sutures Disposition: HOME, SELF-CARE Condition: Stable Instructions: ED Stitches/Staple Removal No ..., ED Coccyx or Sacrum Contusion, ED Dizziness, Uncertain Cause Referrals: Rosales Dickerson MD, MD [Staff Physician] - New prescriptions/home medications: New Meclizine [Antivert] 25 mg PO TID PRN #15 tab PRN Reason: Dizziness No Action Furosemide [Lasix] 40 mg PO BID Spironolactone [Aldactone] 40 mg PO BID nadoloL [Nadolol] 40 mg PO BID HPI: Neurological / Weakness - Time Seen by Provider Time Seen by Provider: 05/05/21 12:26 - General Information Information source:: Patient - History of Present Illness Initial narrative: 70-year-old female patient presents emergency department stating that she fell approximately 10 days agosustaining a occipital scalp laceration that was repaired at the time the injury she states at that time x-rays and CT the head was unremarkable she states that she's been having intermittent episodes of dizziness without slurred speech or generalized weakness on arrival in the ED she is awake and alert and oriented ?3 there is no sign of acute intoxication. - Allergies Allergies/Adverse reactions: Allergies Allergy/AdvReac Type Severity Reaction Status Date / Time No Known Allergies Allergy Verified 05/05/21 12:37 Past Medical History - Available ancillary/Nurse notes reviewed History reviewed and agreed with:: Yes Past EENT history: Cataracts Past EENT surgeries/treatments: Tonsillectomy, Cataract Extraction Additional surgical history details: Right cataract 09/2017 Past neurological history: Negative Additional medical history details: Denies syncope Past neurological surgeries/treatments: Negative Past cardiovascular history: Negative Additional medical history details: Denies Chest pain Past cardiovascular surgeries/treatments:: Negative Past respiratory history: Bronchitis, Pulmonary Embolism Past respiratory surgeries/treatments:: Negative Past gastrointestinal history: Hernia, Cirrhosis, Ulcer, Liver Disease Type of hernia:: Umbilical Additional medical history details: small stomach found in Aug 2017 from upper GI endoscopy. umbilical hernia. 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 Additional surgical history details: EGD 2016 Past genitourinary history: Negative Past Genitourinary surgeries/treatments: Negative Past musculoskeletal history: Arthritis, Other Type of arthritis:: Osteoarthritis Past musculoskeletal surgeries/treatments: Joint Replacement Additional surgical history details: bilateral Knee replacements 2003, 2007 Past endocrine history: Negative Past endocrine surgeries/treatments: Negative General Reproductive History: Negative Past female reproductive history: Abnormal Uterine Bleeding Additional surgical history details: JULIETA BSO 1991 Hemotologic: Anemia Additional details/comments: treated anemia with medicational suppliments Psychiatric: Negative Psychiatric Treatments: Negative Other medical history:: Chicken Pox, Measles, Mumps Other surgeries/treatments: Blood Transfusions Other surgeries/treatments details: 2003 thinks she had blood transfusion. 05/2016 had several transfusions due to cirrhosis - Social History Smoking status: Never Smoker Current tobacco user or use within the last year?: No Second hand smoke exposure?: No Alcohol use- current or past use: Yes Type of alcohol used: Wine Amount used: OCCASIONAL Substance abuse - current or past: No Review of Systems Constitutional: No Symptoms Reported Eyes: No Symptoms Reported ENT: No Symptoms Reported Respiratory: No Symptoms Reported Cardiovascular: No Symptoms Reported Endocrine: No Symptoms Reported Gastrointestinal: No Symptoms Reported Genitourinary: No Symptoms Reported Musculoskeletal: Arthralgia Neurological: Vertigo Psychiatric: No Symptoms Reported Hematological/Lymphatic: No Symptoms Reported .: All 10 Systems Reviewed Negative Unless Otherwise Stated in the HPI .: I have reviewed available Ancillary/Nursing Staff documentation. General Exam - General Limitations: Present: No Limitations General appearance: Present: Well Appearing, Well Nourished, Alert - Head Head exam: Present: Atraumatic, Normocephalic - Eye Eye exam: Present: Normal Appearance, EOMI. Absent: Nystagmus Pupils: Present: PERRL - ENT ENT exam: Present: Normal Exam, Normal Oropharynx, TM's Normal Bilaterally - Neck Neck exam: Present: Normal Inspection, Full ROM. Absent: Lymphadenopathy, Me (more content not included)... Normal [facility] TROPONIN Ion 05-05-2021 Troponin I.cardiac [Mass/Vol] ng/mL Normal 0.0-0.03 [facility] Comment on above: Result Comment: Refe rence Interval < or = 0.03 ng/mL Clinical Correlation Needed 0.03 - 0.11 ng/mL AMI Cutoff, Presumptive = or > 0.12 ng/mL Performed By: #### C MP, CPK 1, CBC, TROP 1 #### Main Lab - [facility] [address] [place] [id number] Waveform Imaging Reporton Waveform Imaging Report [facility] [address] [place], [place] [id number] Waveform Imaging Report : [id number] Signed Name: MARY ALICE GA MRUN: [id number] : 1950 Loc: ED Age / Sex: 70 / F ADM Status: DEP ER ADM Date: 05/05/21 Room/Bed: Ordering Physician: Isaiah Bhakta PA-C Procedure: EKG Order Number(s): [id number] Ordered Date: 05/05/21 Ordered Time: 1242 Test Date: 2021-05-05 12:52:46 Pat Name: MARY ALICE GA Department: ED Room: Gender: F Travel Rn: : 1950 Requested By: Isaiah Hughes Order Number: [id number] Reading MD: Shaq Lal Measurements Intervals Ackerly Rate: 63 P: 24 KS: 164 QRS: 13 QRSD: 92 T: 38 QT: 466 QTc: 478 Interpretive Statements Heart Rate: 63 KS Interval: 164 QRS Duration: 92 QT Interval: 466 QTc: 478 Interpretation: Sinus arrhythmia normal KS interval, normal QRS, normal QTC, normal axis, nonspecific ST changes, no STEMI Electronically Signed On 05-05-2021 19:06:10 EDT by Shaq Lal Dictated By: Shaq Lal MD Dictated Date/Time: 05/05/21 1252 Signed By: Shaq Lal MD, MD Signed Date/Time: 05/05/21 1906 Transcribed Date/Time: Normal [facility] XR SACRUM/COCCYXon XR SACRUM/COCCYX [facility] [address] [place] [address] [id number] Diagnostic Imaging Report : [id number] Signed Name: MARY ALICE GA MRUN: [id number] : 1950 Loc: ED Age / Sex: 70 / F ADM Status: REG ER ADM Date: 05/05/21 Room/Bed: Ordering Physician: Isaiah Bhakta PA-C Procedure: XR SACRUM/COCCYX Order Number(s): [id number] Ordered Date: 05/05/21 Ordered Time: 134 EXAMINATION: THREE XRAY VIEWS OF THE SACRO-ILIAC JOINTS 05/05/2021 2:15 pm COMPARISON: None. HISTORY: fall injury FINDINGS: Three views sacrum and coccyx demonstrate moderate amount of gas and stool anterior to the sacrum. There is diffuse osteopenia without evidence of fracture or subluxation. The soft tissues and osseous structures appear unremarkable. The SI joints appear normal. There is moderate discogenic change at the L5-S1 level. IMPRESSION: Osteopenia with moderate osteoarthritic changes. No evidence of acute fracture or subluxation. Dictated By: Nathen Ureña III, DO Dictated Date/Time: 05/05/21 1418 Signed By: Nathen Ureña Signed Date/Time: 05/05/21 1423 Transcribed Date/Time: 05/05/21 1420 Normal [facility] CHL SCREEN MAMMO DIG W/ZANA BIon 06-25-2020 CHL SCREEN MAMMO DIG W/ZANA BI [facility] [address] [place] [address] [id number] Diagnostic Imaging Report : [id number] Signed Name: MARY ALICE GA MRUN: [id number] : 1950 Loc: CHL Age / Sex: 69 / F ADM Status: REG CLI ADM Date: 06/25/20 Room/Bed: Ordering Physician: Delores Faria MD Procedure: CHL SCREEN MAMMO DIG W/ZANA BI Order Number(s): [id number] Ordered Date: 06/25/20 Ordered Time: 0803 EXAMINATION: SCREENING BILATERAL BREASTS MAMMOGRAM WITH TOMOSYNTHESIS 06/25/2020 TECHNIQUE: Standard digital mammographic views with tomosynthesis of both breast(s) are submitted for interpretation. CAD was applied. COMPARISON: 06/24/2019, 08/10/2016, 06/09/2014 HISTORY: Screening. FINDINGS: BREAST COMPOSITION: The breast parenchyma is heterogeneously dense(c) which may obscure small masses. There are no new suspicious abnormal masses, aggressive calcifications or architectural distortion. No skin thickening, nipple retraction or axillary lymphadenopathy. Mammographically benign calcifications are seen throughout both breasts. No suspicious computer-aided detection alerts. IMPRESSION: BI-RADS category 2 D-mammographically benign calcifications throughout heterogeneously dense breasts BIRADS: BIRADS - CATEGORY 2D - BENIGN FINDINGS, DENSE BREASTS DISCLAIMER: [employer] Recommendations for Breast Cancer Screening for Women of Average Risk* * Women age 40 and older (who have no symptoms) should have an annual mammogram. * Screening with mammography should continue as long as the women is in good health and is willing to undergo additional testing (including biopsy) if an abnormality is detected. * If you are or may be at high risk for breast cancer, you should speak with your doctor to decide if additional screening tests might be right for you. Dictated By: Myles Flores DO Dictated Date/Time: 06/25/20 1342 Signed By: Myles Flores DO Signed Date/Time: 06/25/20 1353 Transcribed Date/Time: 06/25/20 1349 Normal [facility] WOUND CULTUREon 01-14-2020 WOUND CULTURE SPARSE GROWTH PMN'S 1+ GRAM POSITIVE COCCI IN PAIRS pseaer 2+ gnr 2+ Normal [facility] Comment on above: Order Comment: Site: right leg Performed By: #### [id number] #### [place] [address] WOUND CULTUREon 12-23-2019 WOUND CULTURE SPARSE GROWTH NO ORGANISMS SEEN pseaer 1+ Normal [facility] Comment on above: Order Comment: Site: right lower leg Performed By: #### [id number] #### [facility] [place] [address] CNPNon 07-05-2019 CNPN Telephone (RHBATH) -- MIGDALIAMARY ALICE F ([id number]) 1950 F T Date Time Provider Department 07/05/19 REBECCA LEI During your visit today, we recorded the following information about you: Citlali Jerome CMA 07/05/2019 3:39 PM Signed ----- Message from Rebecca Lei sent at 07/05/2019 1:36 PM EDT ----- No inflammation on US Citlali Jerome CMA 07/05/2019 3:41 PM Signed Vm left for patient to call back to discuss US. STEPHANIE Lopez CMA 07/09/2019 9:52 AM Signed Patient called back and was informed. Requested to cancel future visits since testing was negative. Will up with PCP for other causes. Citlali Jerome CMA Allergies As of Date: 07/05/2019 Noted Allergy Reaction CLARITHROMYCIN (BULK) 06/15/2010 14 - Other: See Comments Comments: pancrititis STEROIDS (BETAMETHASONE DIPROPION*06/15/2010 5 - Intolerance Comments: pancritis Date Reviewed: 06/25/2019 Reviewed by: Rehana Mata Ma - Fully Assessed Reason for Visit: Results [95] Prescriptions as of 07/05/2019 Sig: NADOLOL 20 MG TABLET TAKE ONE TABLET BY MOUTH EVER* POTASSIUM CHLORIDE ER 20 MEQ * Take 20 mEq by mouth once keysha* DICLOFENAC 1 % TOPICAL GEL Apply 2 g to affected area fo* SPIRONOLACTONE 50 MG TABLET Take 1 tablet by mouth twice * FUROSEMIDE 20 MG TABLET Take 2 tablets by mouth twice* MILK THISTLE ORAL Take by mouth once daily. IBUPROFEN 200 MG TABLET Take 400 mg by mouth three ti* Problem List As Of Date 07/05/2019 Noted Resolved VENOUS THROMBOSIS NOS [I74.9] INVALID FOR* More... Anxiety [F41.9] INVALID FOR* Hand swelling [M79.89] INVALID FOR* Weight loss [R63.4] INVALID FOR* Hypokalemia [E87.6] INVALID FOR* Abnormal LFTs [R94.5] INVALID FOR* Umbilical hernia without obstruction or gangren*INVALID FOR* Alcoholic cirrhosis of liver with ascites (HCC)*INVALID FOR* Secondary esophageal varices with bleeding (HCC*INVALID FOR* Encounter Status:Closed by CITLALI JEROME CMA on 07/05/19 Normal [facility] CCP Antibody, IgGon 06-10-20 CCP Antibody, IgG <15 Normal <20 [facility] Comment on above: Result Comment: < 20 units: Negative 20-39 units: Weak Positive 40-59 units: Moderate Positive > 60 units: Strong Positive The following results were obtained with the [employer] QUANTA Lite CCP3 IgG ADDIE. Anti-CCP values obtained with different manufacturers' assay methods may not be used interchangeably. The magnitude of the reported IgG levels cannot be correlated to an endpoint titer. Performing Laboratory: [facility] [employer] [address] [place] [address] Performed By: #### C CPX #### [place] [address] Hep B Core Ab,Totalon 2018 Hep B Core Ab,Total Negative Normal NEGAT [facility] Comment on above: Result Comment: Perf orming Laboratory: [facility] [employer] [address] [place] [address] Performed By: #### H BCTX #### [place] [address] Quantiferon (Rapd TB)on Quantiferon (Rapd TB) SEE BELOW Normal [facility] Comment on above: Result Comment: TB N IL 0.04 IU/mL TB1 Ag minus Nil 0.00 <0.35 IU/mL TB2 Ag minus Nil 0.00 <0.35 IU/mL Mitogen minus Nil >10 TB Result Negative NEGAT Interpretation SEE BELOW No evidence of current or previous infection with Mycobacterium tuberculosis. Performing Laboratory: [facility] [employer] [facility] [place] [address] Performed By: #### Q UANX #### [place] [address] Hep. B Surface Abon 06-06-20 19 Hep. B Surface Ab 68.6 mIU/mL Normal [facility] Comment on above: Result Comment: Hep B. Antibody < 10.0 mIU/mL is negative. Hep B. Antibody > or = 10.0 mIU/mL is positive. Performed By: #### A NTB #### [place] [address] Hep. B Surface Agon 06-06-20 Hep.B Surface Ag Negative Normal Negative [facility] Comment on above: Performed By: #### H BSAG #### [place] [address] Hepatitis C Antibodyon 06-06 Hepatitis C Ab Negative Normal Negative [facility] Comment on above: Performed By: #### H CVAB #### [place] [address] Total 25-OH Vitamin Don 10-0 Total 25-OH Vitamin D 33.2 ng/mL Normal 30.0-100.0 [facility] Comment on above: Performed By: #### 2 5VD1 #### [place] [address] CNOVon 06-05-2019 CNOV Office Visit (RHBATH ) -- MARY ALICE GA ([id number]) 1950 F T Date Time Provider Department 06/05/19 10:20 AM REEBCCA LEI RHBJOHN During your visit today, we recorded the following information about you: Pulse Blood pressure Weight Height 86/minute 116/72 68.9 kg 1.651 m Rebecca Lei MD 06/05/2019 12:44 PM Signed RHEUMATOLOGY NEW PATIENT NOTE REFERRING PHYSICIAN: Abdirahman Conley CHIEF COMPLAINT: No chief complaint on file. HPI: Mary Alice Ga is a 68 year old female who presents with joint pain. She was getting work up for RA 3 years ago but was lost to follow up. She never got US scheduled. Bilateral hand pain L>R. Change in weather makes the pain worse. Tylenol helps.no swelling in hands. Knee pain, had bl TKA. She saw ortho last year and was advised to exercise. Knee x rays were ok. Gelling phenomenon. She takes tylenol. She walks a lot. Climbing stairs is difficult. AM stiffness lasting for 20 min. No h/o fractures. Swelling in feet. Had varicose veins, s/op stripping but recurred. Yoga was helping but it was getting difficult for her to get up from the floor. She was seen by Dr. Brown, however never followed up. got very ill. She is s/p bilateral TKA for OA Liver cirrhosis secondary to etoh, Her disease has been upper GI bleeding (? From varices but not banded) and splenomegaly, ascites. She follows up with Dr. Alvarez yearly. H/o bl PE after first TKR. Family history of autoimmune disease - first cousin with RA Smoking status: Tobacco Use: Never Rheumatology REVIEW OF SYSTEMS: Constitutional: Recent Weight Change: YES trying a diet, lost 8 lb. Fatigue: No Fever: No Night sweats: No Heent: Alopecia: No H/o Inflammatory eye disease (iritis/scleritis): No Hearing loss: No Frequent sinusitis: No Oral ulcers: No Sicca: No Parotid swelling: No Hoarseness: No Dysphagia: No Heme/lymph: Lymphadenopathy: No Hematological abnormalities (anemia, thrombocytopenia, leukopenia): No Abnormal bleeding: No Skin: Malar or discoid lesions: No Photosensitivity: No Other rashes: No Raynaud's phenomenon: No Hives: No Tightness: No Nodules/bumps: No Easy Bruising: No Nail changes: No H/o psoriasis: No Gastroenterology: Nausea: {No Vomiting: No Change in bowel movements: No Heartburn: No Respiratory: Dry cough/SOB: No Cardiovascular: Pain in chest: No Musculoskeletal: Per HPI Joint pain or swelling: No Prolonged morning stiffness: No Back pain or neck pain: No Muscle weakness: No Genitourinary: Vaginal dryness: No Rash/ulcers: No Neurological: Headaches: No Sensitivity or pain of hands and/or feet: No Psychiatry: Anxiety: No Depression: No Poor sleep: No H/o loss: No H/o thrombosis: No Increased susceptibility to infection: No PAST MEDICAL HISTORY Diagnosis Date - Arthritis - Cirrhosis (HCC) - Cirrhosis (HCC) - Edema - Flexural atopic dermatitis - Inflamed seborrheic keratosis - Liver disease - Multiple nevi - PMH - PAST MEDICAL HISTORY OF 01/24/08 pancreatitis - PMH - PAST MEDICAL HISTORY OF htn - PMH - PAST MEDICAL HISTORY OF hx varicose veins - PMH - PAST MEDICAL HISTORY OF 05/17/08 pulmonary embolus- postop left TKA - Seborrheic keratoses - Solar lentiginosis PAST SURGICAL HISTORY Procedure Laterality Date - PAST SURGICAL HISTORY OF 1991 JULIETA/BSO for fibroids - PAST SURGICAL HISTORY OF tonsillectomy - PAST SURGICAL HISTORY OF 05/14/08 Left TKA - PAST SURGICAL HISTORY OF 08/29/2011 R TKA Current Outpatient Medications: nadolol (CORGARD) 20 mg tablet TAKE ONE TABLET BY MOUTH EVERY DAY potassium chloride ER (K-DUR, KLOR-CON) 20 mEq tablet Take 20 mEq by mouth once daily. diclofenac sodium (VOLTAREN) 1 % topical gel Apply 2 g to affected area four times daily as needed. spironolactone (ALDACTONE) 50 mg tablet Take 1 tablet by mouth twice daily. furosemide (LASIX) 20 mg tablet Take 2 tablets by mouth twice daily. ibuprofen (MOTRIN) 200 mg tablet Take 400 mg by mouth three times daily. MILK THISTLE ORAL Take by mouth once daily. No current facility-administered medications for this visit. 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: [employer] 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 strain: Not on file Food insecurity: Worry: Not on file Inability: Not on file Transportation needs: Medical: Not on file Non-medical: Not on file Tobacco Use Smoking status: Never Smoker Smokeless tobacco: Never Used Substance and Sexual Activity Alcohol use: Yes Comment: 3 glasses of wine daily-quit 05/2016 Drug use: No Sexual activity: Yes Partners: Male Lifestyle Physical activity: Days per week: Not on file Minutes per session: Not on file Stress: Not on file Relationships Social connections: Talks on phone: Not on file Gets together: Not on file Attends denominational service: Not on file Active member of club or organization: Not on file Attends meetings of clubs or organizations: Not on file Relationship status: Not on file Intimate partner violence: Fear of current or ex partner: Not on file Emotionally abused: Not on file Physically abused: Not on file Forced sexual activity: Not on file Other Topics Concerns: Service: Not Asked Blood Transfusions: Not Asked Caffeine Concern: No Occupational Exposure: Not Asked Hobby Hazards: Not Asked Sleep Concern: Not Asked Stress Concern: Not Asked Weight Concern: Not Asked Special Diet: Not Asked Back Care: Not Asked Exercise: Yes Bike Helmet: Not Asked Seat Belt: Not Asked Self-Exams: Not Asked Social History Narrative Not on file 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 BP 116/72 Pulse 86 Ht 165.1 cm (5' 5) Wt 68.9 kg (152 lb) SpO2 98% BMI 25.29 kg/m? Physical Exam GENERAL: Well appearing, alert, comfortable, in no acute distress, well-hydrated, well nourished. HEENT: Negative for external ears normal. Canals are clear. Both TMs visualized and are normal. Eye Exam normal. External nose normal, no nasal ulcer or throat ulcer. NECK: NECK Supple, no adenopathy; thyroid symmetric, normal size, no bruits CARDIAC: regular rate and rhythm, No murmur asculated. and Equal peripheral pulses RESPIRATORY: Lungs clear to auscultation. No wheezing, rhonchi, rales VASCULAR: RRR without murmur, gallop, or rubs. No ectopy. ABDOMEN: Soft, non tender. BS active. No masses or organomegaly. LYMPHATIC: Negative for adenopathy in the neck, axillae, groin, supraclavicular and auricular. NEURO: Motor and sensory exam normal MOTOR: Normal; including tone, gait, stressed gait, power and coordination. SKIN: Negative for alopecia, skin rash, malar rash, skin lesion, skin ulcer, pits, thickening, color changes, telangiectasias, nail changes, nail ridging, nail pitting, onycholysis MUSCULOSKELETAL: DIPS: Abnormal, Heberden's nodes PIPS: Abnormal, Anshu's nodes MCPs: Abnormal, hypertrophied, ulnar deviation Wrists: Normal Elbows: Normal Shoulders: Normal C-Spine: Normal Hips: Normal Knees: Abnormal, healed surgical scars bl. No effusion. Tenderness throughout Ankles: Normal MTPs / Toes: Normal Arches: Normal Summary of old labs/radiology: Review/request of outside labs and imaging: Pertinent labs: Glucose 75 05/12/2017 ALT 21 05/12/2017 WBC 7.08 05/12/2017 Hemoglobin 13.5 05/12/2017 Platelet Count 230 05/12/2017 WSR 29 07/12/2017 CRP 0.6 07/12/2017 Serology: Component Latest Ref Rng AND Units 04/29/2011 Rheumatoid Factor <20 IU/mL 18 WSR 0 - 15 mm/hr 14 2016 - negative LATRELL, rheumatoid factor, CCP, uric acid 2018 RF 17.3 Pertinent imaging: IMPRESSION: SYMMETRICAL JOINT SPACE LOSS WITHOUT OSTEOPHYTES AT THE MCP JOINTS OF THE HANDS BILATERALLY SUGGESTING INFLAMMATORY ARTHROPATHY SUCH RHEUMATOID ARTHRITIS. ?NO EROSIONS IDENTIFIED. OSTEOARTHRITIS IN OTHER LOCATIONS Assessment and Plan (M25.50) Pain in joint, multiple sites (primary encounter diagnosis) (E55.9) Vitamin D deficiency, unspecified (M15.0) Primary osteoarthritis involving multiple joints 68-year-old female with history of alcoholic liver cirrhosis is here for evaluation and management recommendations for chronic joint pain. Patient reports bilateral hand pain and bilateral knee pain. Rheumatoid arthritis was suggested in the past however never confirmed. RF and has been negative multiple times or low titer. CCP was negative in the past. No synovitis on exam. She has ulnar deviation of MCPs which can be seen in inflammatory arthritis. She definitely has evidence of osteoarthritis. Evaluation with below labs and x-rays today. Ultrasound can help to confirm inflammatory arthritis. No synovitis on exam. 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 Tendon or ligament/muscle weakness is a possibility. I advised physical therapy. She had already seen orthopedics last year. X-rays were negative. No signs of septic arthritis. Follow-up to discuss results. Office Visit on 06/05/19 - XR HAND GENERAL 3V PA/LAT/OBL LT - XR HAND GENERAL 3V PA/LAT/OBL RT - US HAND/WRIST SYNOVIAL SCREEN RT - US HAND/WRIST SYNOVIAL SCREEN LT - CCP ANTIBODY IGG - HEP B SURF AG SCRN - HEP B SURF AB QUANT - HEP C AB IA BLOOD - HEP B CORE AB TOTAL - BLOOD TB SCREEN, INCUBATED - VITAMIN D 25 HYDROXY - CONSULT TO PHYSICAL THERAPY (AG) No orders of the defined types were placed in this encounter. Return in about 5 weeks (around 07/10/2019) for discuss lab results. Rebecca Lei MD Referring Provider: ABDIRAHMAN CONLEY [[id number]] Allergies As of Date: 06/05/2019 Noted Allergy Reaction CLARITHROMYCIN (BULK) 06/15/2010 14 - Other: See Comments Comments: pancrititis STEROIDS (BETAMETHASONE DIPROPION*06/15/2010 5 - Intolerance Comments: pancritis Date Reviewed: 06/05/2019 Reviewed by: Rebecca Lei - Fully Assessed Reason for Visit: New Patient [172] Primary Visit Diagnosis:Pain in joint, multiple sites [M25.50] Other Visit Diagnoses:Vitamin D deficiency, unspecified [E55.9] Primary osteoarthritis involving multiple joints [M15.0] Order(s):CCP ANTIBODY IGG [SQCCP] Order #: [id number] FUTURE HEP B SURF AG SCRN [SQHBSAG] Order #: [id number] FUTURE HEP B SURF AB QUANT [SQAHBSQ] Order #: [id number] FUTURE HEP C AB IA BLOOD [SQAHCV] Order #: [id number] FUTURE HEP B CORE AB TOTAL [SQAHBCOT] Order #: [id number] FUTURE BLOOD TB SCREEN, INCUBATED [SQINTPGP] Order #: [id number] FUTURE VITAMIN D 25 HYDROXY [SQVITD] Order #: [id number] FUTURE XR HAND GENERAL 3V PA/LAT/OBL LT [[id number]] Order #: [id number] FUTURE XR HAND GENERAL 3V PA/LAT/OBL RT [[id number]] Order #: [id number] FUTURE US HAND/WRIST SYNOVIAL SCREEN RT [[id number]] Order #: [id number] FUTURE HAND/WRIST SYNOVIAL SCREEN LT [[id number]] Order #: [id number] FUTURE CONSULT TO PHYSICAL THERAPY (AG) [[id number]] Order #: [id number]: 1 Prescriptions as of 06/05/2019 Sig: NADOLOL 20 MG TABLET TAKE ONE TABLET BY MOUTH EVER* POTASSIUM CHLORIDE ER 20 MEQ * Take 20 mEq by mouth once keysha* DICLOFENAC 1 % TOPICAL GEL Apply 2 g to affected area fo* SPIRONOLACTONE 50 MG TABLET Take 1 tablet by mouth twice * FUROSEMIDE 20 MG TABLET Take 2 tablets by mouth twice* IBUPROFEN 200 MG TABLET Take 400 mg by mouth three ti* MILK THISTLE ORAL Take by mouth once daily. Problem List As Of Date 06/05/2019 Noted Resolved VENOUS THROMBOSIS NOS [I74.9] INVALID FOR* More... Anxiety [F41.9] INVALID FOR* Hand swelling [M79.89] INVALID FOR* Weight loss [R63.4] INVALID FOR* Hypokalemia [E87.6] INVALID FOR* Abnormal LFTs [R94.5] INVALID FOR* Umbilical hernia without obstruction or gangren*INVALID FOR* Alcoholic cirrhosis of liver with ascites (HCC)*INVALID FOR* Secondary esophageal varices with bleeding (HCC*INVALID FOR* Disposition: Return in about 5 weeks (around 07/10/2019) for discuss lab results. Follow-up and Disposition History Recorded Letter Text Encounter Status:Closed by REBECCA LEI MD on 06/05/19 [facility] PROGRESSon 06-05-2019 PROGRESS HNO ID: [id number] Author: Rebecca Lei Service: ? Author Type: Physician Type: Progress Notes Filed: 06/05/2019 12:44 PM Note Text: RHEUMATOLOGY NEW PATIENT NOTE REFERRING PHYSICIAN: Abdirahman Conley CHIEF COMPLAINT: No chief complaint on file. HPI: Mary Alice Ga is a 68 year old female who presents with joint pain. She was getting work up for RA 3 years ago but was lost to follow up. She never got US scheduled. Bilateral hand pain L>R. Change in weather makes the pain worse. Tylenol helps.no swelling in hands. Knee pain, had bl TKA. She saw ortho last year and was advised to exercise. Knee x rays were ok. Gelling phenomenon. She takes tylenol. She walks a lot. Climbing stairs is difficult. AM stiffness lasting for 20 min. No h/o fractures. Swelling in feet. Had varicose veins, s/op stripping but recurred. Yoga was helping but it was getting difficult for her to get up from the floor. She was seen by Dr. Brown, however never followed up. got very ill. She is s/p bilateral TKA for OA Liver cirrhosis secondary to etoh, Her disease has been upper GI bleeding (? From varices but not banded) and splenomegaly, ascites. She follows up with Dr. Alvarez yearly. H/o bl PE after first TKR. Family history of autoimmune disease - first cousin with RA Smoking status: Tobacco Use: Never Rheumatology REVIEW OF SYSTEMS: Constitutional: Recent Weight Change: YES trying a diet, lost 8 lb. Fatigue: No Fever: No Night sweats: No Heent: Alopecia: No H/o Inflammatory eye disease (iritis/scleritis): No Hearing loss: No Frequent sinusitis: No Oral ulcers: No Sicca: No Parotid swelling: No Hoarseness: No Dysphagia: No Heme/lymph: Lymphadenopathy: No Hematological abnormalities (anemia, thrombocytopenia, leukopenia): No Abnormal bleeding: No Skin: Malar or discoid lesions: No Photosensitivity: No Other rashes: No Raynaud's phenomenon: No Hives: No Tightness: No Nodules/bumps: No Easy Bruising: No Nail changes: No H/o psoriasis: No Gastroenterology: Nausea: {No Vomiting: No Change in bowel movements: No Heartburn: No Respiratory: Dry cough/SOB: No Cardiovascular: Pain in chest: No Musculoskeletal: Per HPI Joint pain or swelling: No Prolonged morning stiffness: No Back pain or neck pain: No Muscle weakness: No Genitourinary: Vaginal dryness: No Rash/ulcers: No Neurological: Headaches: No Sensitivity or pain of hands and/or feet: No Psychiatry: Anxiety: No Depression: No Poor sleep: No H/o loss: No H/o thrombosis: No Increased susceptibility to infection: No PAST MEDICAL HISTORY Diagnosis Date - Arthritis - Cirrhosis (HCC) - Cirrhosis (HCC) - Edema - Flexural atopic dermatitis - Inflamed seborrheic keratosis - Liver disease - Multiple nevi - PMH - PAST MEDICAL HISTORY OF 01/24/08 pancreatitis - PMH - PAST MEDICAL HISTORY OF htn - PMH - PAST MEDICAL HISTORY OF hx varicose veins - PMH - PAST MEDICAL HISTORY OF 05/17/08 pulmonary embolus- postop left TKA - Seborrheic keratoses - Solar lentiginosis PAST SURGICAL HISTORY Procedure Laterality Date - PAST SURGICAL HISTORY OF 1991 JULIETA/BSO for fibroids - PAST SURGICAL HISTORY OF tonsillectomy - PAST SURGICAL HISTORY OF 05/14/08 Left TKA - PAST SURGICAL HISTORY OF 08/29/2011 R TKA Current Outpatient Medications: nadolol (CORGARD) 20 mg tablet TAKE ONE TABLET BY MOUTH EVERY DAY potassium chloride ER (K-DUR, KLOR-CON) 20 mEq tablet Take 20 mEq by mouth once daily. diclofenac sodium (VOLTAREN) 1 % topical gel Apply 2 g to affected area four times daily as needed. spironolactone (ALDACTONE) 50 mg tablet Take 1 tablet by mouth twice daily. furosemide (LASIX) 20 mg tablet Take 2 tablets by mouth twice daily. ibuprofen (MOTRIN) 200 mg tablet Take 400 mg by mouth three times daily. MILK THISTLE ORAL Take by mouth once daily. No current facility-administered medications for this visit. 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: [employer] 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 strain: Not on file Food insecurity: Worry: Not on file Inability: Not on file Transportation needs: Medical: Not on file Non-medical: Not on file Tobacco Use Smoking status: Never Smoker Smokeless tobacco: Never Used Substance and Sexual Activity Alcohol use: Yes Comment: 3 glasses of wine daily-quit 05/2016 Drug use: No Sexual activity: Yes Partners: Male Lifestyle Physical activity: Days per week: Not on file Minutes per session: Not on file Stress: Not on file Relationships Social connections: Talks on phone: Not on file Gets together: Not on file Attends denominational service: Not on file Active member of club or organization: Not on file Attends meetings of clubs or organizations: Not on file Relationship status: Not on file Intimate partner violence: Fear of current or ex partner: Not on file Emotionally abused: Not on file Physically abused: Not on file Forced sexual activity: Not on file Other Topics Concerns: Service: Not Asked Blood Transfusions: Not Asked Caffeine Concern: No Occupational Exposure: Not Asked Hobby Hazards: Not Asked Sleep Concern: Not Asked Stress Concern: Not Asked Weight Concern: Not Asked Special Diet: Not Asked Back Care: Not Asked Exercise: Yes Bike Helmet: Not Asked Seat Belt: Not Asked Self-Exams: Not Asked Social History Narrative Not on file 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 BP 116/72 Pulse 86 Ht 165.1 cm (5' 5) Wt 68.9 kg (152 lb) SpO2 98% BMI 25.29 kg/m? Physical Exam GENERAL: Well appearing, alert, comfortable, in no acute distress, well-hydrated, well nourished. HEENT: Negative for external ears normal. Canals are clear. Both TMs visualized and are normal. Eye Exam normal. External nose normal, no nasal ulcer or throat ulcer. NECK: NECK Supple, no adenopathy; thyroid symmetric, normal size, no bruits CARDIAC: regular rate and rhythm, No murmur asculated. and Equal peripheral pulses RESPIRATORY: Lungs clear to auscultation. No wheezing, rhonchi, rales VASCULAR: RRR without murmur, gallop, or rubs. No ectopy. ABDOMEN: Soft, non tender. BS active. No masses or organomegaly. LYMPHATIC: Negative for adenopathy in the neck, axillae, groin, supraclavicular and auricular. NEURO: Motor and sensory exam normal MOTOR: Normal; including tone, gait, stressed gait, power and coordination. SKIN: Negative for alopecia, skin rash, malar rash, skin lesion, skin ulcer, pits, thickening, color changes, telangiectasias, nail changes, nail ridging, nail pitting, onycholysis MUSCULOSKELETAL: DIPS: Abnormal, Heberden's nodes PIPS: Abnormal, Anshu's nodes MCPs: Abnormal, hypertrophied, ulnar deviation Wrists: Normal Elbows: Normal Shoulders: Normal C-Spine: Normal Hips: Normal Knees: Abnormal, healed surgical scars bl. No effusion. Tenderness throughout Ankles: Normal MTPs / Toes: Normal Arches: Normal Summary of old labs/radiology: Review/request of outside labs and imaging: Pertinent labs: Glucose 75 05/12/2017 ALT 21 05/12/2017 WBC 7.08 05/12/2017 Hemoglobin 13.5 05/12/2017 Platelet Count 230 05/12/2017 WSR 29 07/12/2017 CRP 0.6 07/12/2017 Serology: Component Latest Ref Rng AND Units 04/29/2011 Rheumatoid Factor <20 IU/mL 18 WSR 0 - 15 mm/hr 14 2016 - negative LATRELL, rheumatoid factor, CCP, uric acid 2018 RF 17.3 Pertinent imaging: IMPRESSION: SYMMETRICAL JOINT SPACE LOSS WITHOUT OSTEOPHYTES AT THE MCP JOINTS OF THE HANDS BILATERALLY SUGGESTING INFLAMMATORY ARTHROPATHY SUCH RHEUMATOID ARTHRITIS. ?NO EROSIONS IDENTIFIED. OSTEOARTHRITIS IN OTHER LOCATIONS Assessment and Plan (M25.50) Pain in joint, multiple sites (primary encounter diagnosis) (E55.9) Vitamin D deficiency, unspecified (M15.0) Primary osteoarthritis involving multiple joints 68-year-old female with history of alcoholic liver cirrhosis is here for evaluation and management recommendations for chronic joint pain. Patient reports bilateral hand pain and bilateral knee pain. Rheumatoid arthritis was suggested in the past however never confirmed. RF and has been negative multiple times or low titer. CCP was negative in the past. No synovitis on exam. She has ulnar deviation of MCPs which can be seen in inflammatory arthritis. She definitely has evidence of osteoarthritis. Evaluation with below labs and x-rays today. Ultrasound can help to confirm inflammatory arthritis. No synovitis on exam. 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 Tendon or ligament/muscle weakness is a possibility. I advised physical therapy. She had already seen orthopedics last year. X-rays were negative. No signs of septic arthritis. Follow-up to discuss results. Office Visit on 06/05/19 - XR HAND GENERAL 3V PA/LAT/OBL LT - XR HAND GENERAL 3V PA/LAT/OBL RT - US HAND/WRIST SYNOVIAL SCREEN RT - US HAND/WRIST SYNOVIAL SCREEN LT - CCP ANTIBODY IGG - HEP B SURF AG SCRN - HEP B SURF AB QUANT - HEP C AB IA BLOOD - HEP B CORE AB TOTAL - BLOOD TB SCREEN, INCUBATED - VITAMIN D 25 HYDROXY - CONSULT TO PHYSICAL THERAPY (AG) No orders of the defined types were placed in this encounter. Return in about 5 weeks (around 07/10/2019) for discuss lab results. Rebecca Lei MD [facility] XR HAND 3V PA/LAT/OBL LTon 1 XR HAND 3V PA/LAT/OBL LT * * *Final Report* * * DATE OF EXAM: Jun 05 2019 11:48AM [id number] - XR HAND 3V PA/LAT/OBL LT / PROCEDURE REASON: Pain in joint, multiple sites * * * * Physician Interpretation * * * * EXAM TITLE: XR HAND 3V PA/LAT/OBL LT, XR HAND 3V PA/LAT/OBL RT DATE: 06/05/2019 INDICATION: Bilateral hand pain COMPARISON: None. FINDINGS: At both hands, there is narrowing of the MCP joints. Furthermore, there is some ulnar deviation of the digits bilaterally. There are no definite erosions. At the DIP joints of both hands, there are changes of osteoarthritis. This borders on erosive osteoarthritis. There is also degenerative arthritis at the right first CMC joint. No fractures are seen. There are no unusual calcifications in the soft tissues. No definite soft tissue swelling is appreciated. IMPRESSION: Changes at the MCP joints which are suggestive of rheumatoid arthritis. Clinical correlation is recommended. Osteoarthritis is also noted. Vault Clerk: ABDIEL Transcribe Date/Time: Jun 06 2019 1:12P Dictated by : OTTO FLOR MD This examination was interpreted and the report reviewed and electronically signed by: OTTO FLOR MD on Jun 06 2019 1:14PM [facility] XR HAND 3V PA/LAT/OBL RTon 1 XR HAND 3V PA/LAT/OBL RT * * *Final Report* * * DATE OF EXAM: Jun 05 2019 11:48AM [id number] - XR HAND 3V PA/LAT/OBL RT / PROCEDURE REASON: Pain in joint, multiple sites * * * * Physician Interpretation * * * * EXAM TITLE: XR HAND 3V PA/LAT/OBL LT, XR HAND 3V PA/LAT/OBL RT DATE: 06/05/2019 INDICATION: Bilateral hand pain COMPARISON: None. FINDINGS: At both hands, there is narrowing of the MCP joints. Furthermore, there is some ulnar deviation of the digits bilaterally. There are no definite erosions. At the DIP joints of both hands, there are changes of osteoarthritis. This borders on erosive osteoarthritis. There is also degenerative arthritis at the right first CMC joint. No fractures are seen. There are no unusual calcifications in the soft tissues. No definite soft tissue swelling is appreciated. IMPRESSION: Changes at the MCP joints which are suggestive of rheumatoid arthritis. Clinical correlation is recommended. Osteoarthritis is also noted. Vault Clerk: ABDIEL Transcribe Date/Time: Jun 06 2019 1:12P Dictated by : OTTO FLOR MD This examination was interpreted and the report reviewed and electronically signed by: OTTO FLOR MD on Jun 06 2019 1:14PM EST Normal [facility] HISTORY PHYSICALon HISTORY PHYSICAL HNO ID: [id number] thor: Lili Bates: GastroenterologyAuthor Type: PhysicianType: HANDPFiled: 08/16/2017 8:51 AMNote Text:PROCEDURAL SEDATION HISTORY AND PHYSICAL EXAMSERVICE DATE: 08/16/2017SERVICE TIME: 8:51 AMSUBJECTIVEHPI: This is a 66 year old female who presents with cirrhosis, history ofupper gi bleedPAST ANESTHESIA HISTORY: No history of adverse eventPAST MEDICAL HISTORYDiagnosis Date- Cirrhosis (HCC)- Edema- PMH - PAST MEDICAL HISTORY OF 01/24/08 pancreatitis- PMH - PAST MEDICAL HISTORY OF htn- PMH - PAST MEDICAL HISTORY OF hx varicose veins- PMH - PAST MEDICAL HISTORY OF 05/17/08 pulmonary embolus- postop left TKAPAST SURGICAL HISTORYProcedure Laterality Date- PAST SURGICAL HISTORY OF 1991 JULIETA/BSO for fibroids- PAST SURGICAL HISTORY OF tonsillectomy- PAST SURGICAL HISTORY OF 05/14/08 Left TKA- PAST SURGICAL HISTORY OF 08/29/2011 R TKAPrior to Admission medications as of 07/12/17 0927Medication Sig Last Dose Takingdiclofenac sodium (VOLTAREN) 1 % topical gel Apply 2 g to affected areafour times daily as needed.nadolol (CORGARD) 20 mg tablet Take 1 tablet by mouth once daily.spironolactone (ALDACTONE) 50 mg tablet Take 1 tablet by mouth twicedaily.furosemide (LASIX) 20 mg tablet Take 2 tablets by mouth twice daily.MILK THISTLE ORAL Take by mouth once daily.ibuprofen (MOTRIN) 200 mg tablet Take 400 mg by mouth three times daily.cyanocobalamin(B-12 DOTS 500 MCG TAB) Take one(1) tablet daily.FOLIC ACID 1 MG TAB Take one(1) tablet daily.ALLERGIESAllergen Reactions- Clarithromycin (Bul* Other: See Comments pancrititis- Steroids [Betametha* Intolerance pancritisOBJECTIVEPHYSICAL EXAM: The remainder of the physical exam is noncontributory.AIRWAY: Airway Visualization of Uvula: YesMouth opening greater than 2 fingerbreadths: YesNeck Full Range of Motion: YesLUNGS: Lungs clear to auscultation, Good diaphragmatic excursionCARDIAC: Normal S1 and S2; no rubs, murmurs, or gallopsASSESSMENT/PLANASA Class: ASA Class:: Patient with mild systemic diseaseActive Problems: * No active hospital problems. *Provisional Diagnosis/Treatment Plan: EGD with possible bandingSEDATION GOAL: ModerateSIGNATURE: Lili Alvarez MD PATIENT NAME: Mary Alice ArechigaiDATE: August 16, 2017 : 8:51 AM PAGER: [phone] [facility] PT EDon 08-16-2017 PT ED HNO ID: [id number] thor: Min CaputoRnRANDY Arguetaervice: NursingAuthor Type: Registered NurseType: Patient EducationFiled: 08/16/2017 10:09 AMNote Text:POST OP LEARNING RESPONSEINSTRUCTION PROVIDED TO: Patient and family memberMETHOD OF INSTRUCTION: Written instruction - handoutsVerbal instructionPATIENT / FAMILY RESPONSE: Verbalizes understanding of: POST-OPERATIVEINSTRUCTIONS -Correct actions to take to reduce postoperative complicationsFOLLOW-UP PLAN: Complete - No need for follow-upSUPPLEMENTAL MATERIAL: NoneREFERRAL (RECOMMENDATION): NoneElectronically Signed By: Min Jim RN In Department: [facility] ENDOSCOPY [facility] PT ED HNO ID: [id number] thor: RANDY Cannon Rnervice: NursingAuthor Type: Registered NurseType: Patient EducationFiled: 08/16/2017 8:52 AMNote Text:PRE OP LEARNING ASSESSMENTPROCEDURE/SURGER Y: GI PROCEDURES: EGDREADINESS TO LEARNCOGNITIVE ABILITY: Alert and orientedMOTIVATION TO LEARN: InterestedFAMILY SUPPORT: High - Very involved in pt carePATIENT LEARNS BEST BY: Written Instruction - Hand-outsFACTORS AFFECTING LEARNING: NonePHYSICAL LIMITATIONS AFFECTING LEARNING: NoneElectronically Signed By: Liseth Min RN In Department: [facility] ENDOSCOPY [facility] SURGICAL PATHOLOGYon 017 SURGICAL PATHOLOGY Specimen #: [id number] Physician: LILI ALVAREZ M.D. FINAL DIAGNOSISStomach, antrum, biopsy - Gastric antral-type mucosa with no pathologicdiagnostic abnormality; see comment. SS/dss 08/17/2017 COMMENTNo micro-organisms morphologically compatible with H pylori are identifiedon routine H&E stained sections.Matt Manjarrez M.D.(Electronic Signature) S PECIMEN SUBMITTEDA: ANTRUM CLINICAL DATAESOPHAGEAL VARICES WITHOUT BLEEDING, UNSPECIFIED ESOPHAGEAL VARICES TYPE(HCC) [I85.00]; GASTRIC ULCER; GASTRITIS, ANTRUM BIOPSY - EGDGROSS DESCRIPTION A. Received in formalin are three pieces of arroyo, soft tissue aggregatingto 0.8 x 0.2 x 0.1 cm. Totally submitted in one cassette.Gross examination performed at [facility], [address] [place] [id number] 08/16/2017 7:27:12 PMPatient ID #: [id number] [id number] Report: 08/17/2017Date of Procedure: 08/16/2017Date of Receipt: 08/16/2017Submitted by: LILI ALVAREZ M.D.Location: MMMMENDDiagnostic interpretation performed at [facility], [address] [place] [id number]. [facility] HOSPon 07-07-2017 HOSP Patient:Iris Ga FMRN: Height:5' 5(1.651 m)Weight:No patient weight recorded within the last 30 days.Outpatient Medications as of 08/16/17:diclofenac sodium (VOLTAREN) 1 % topical gelnadolol (CORGARD) 20 mg tabletspironolactone (ALDACTONE) 50 mg tabletfurosemide (LASIX) 20 mg tabletMILK THISTLE ORALibuprofen (MOTRIN) 200 mg tabletcyanocobalamin(B-12 DOTS 500 MCG TAB)FOLIC ACID 1 MG TABAdmission/Clinic Administered Medications as of 08/16/17:lactated ringers infusionProblem List:Embolism and thrombosis of unspecified site [I74.9]Anxiety [F41.9]Hand swelling [M79.89]Weight loss [R63.4]Hypokalemia [E87.6]Abnormal LFTs [R79.89]Umbilical hernia without obstruction or gangrene [K42.9]Alcoholic cirrhosis of liver with ascites (HCC) [K70.31]Secondary esophageal varices with bleeding (HCC) [I85.11]Allergies:Clarithr omycin (Bulk)Steroids [Betamethasone Dipropionate]Date Verified: 08/16/17Lab ValuesNo results within the last 30 days for the following basenames: K,HCTNo progress notes entered within the past 30 days [facility] Bacteria identified Anaer cx Nom (Unsp spec) Anaerobic microbial culture No anaerobic bacteria isolated. [facility] Work Phone: Bacteria identified Cx Nom ( Wound) Wound Culture Staphylococcus epidermidis [facility] Work Phone: Wound Culture Negative [facility] Work Phone: Gram stain for investigation of transfusion reaction Microscopic observation Gram stain Nom (Unsp spec) [facility] Work Phone: Vital Signs Date Time Vital Sign Value Performing Clinician Faci lity 05-21-2025 08:10-0400 Body height 162.[address] Khanh Rodriguez MD Work Phone: [facility] 05-21-2025 08:10-0400 Body mass index (BMI) [Ratio] 23.1 kg/m2 Dr. Khanh Rodriguez MD Work Phone: [facility] 05-21-2025 08:10-0400 Body temperature 97.6 [degF] Dr. Khanh Rodriguez MD Work Phone: [facility] 05-21-2025 08:10-0400 Body weight 61.[address] Khanh Rodriguez MD Work Phone: [facility] 05-21-2025 08:10-0400 Diastolic blood pressure 64 mm[Hg] Dr. Khanh Rodriguez MD Work Phone: [facility] 05-21-2025 08:10-0400 Heart rate 75 /min Dr. Khanh Rodriguez MD Work Phone: [facility] 05-21-2025 08:10-0400 Respiratory rate 16 /min Dr. Khanh Rodriguez MD Work Phone: [facility] 05-21-2025 08:10-0400 SaO2% (BldA) [Mass fraction] 100 % Dr. Khanh Rodriguez MD Work Phone: [facility] 05-21-2025 08:10-0400 Systolic blood pressure 104 mm[Hg] Dr. Khanh Rodriguez MD Work Phone: [facility] 05-08-2025 13:08-0400 Body height 154.[address] Khanh Rodriguez MD Work Phone: [facility] 05-08-2025 13:08-0400 Body mass index (BMI) [Ratio] 25.2 kg/m2 Dr. Khanh Rodriguez MD Work Phone: [facility] 05-08-2025 13:08-0400 Body weight 60.[address] Khanh Rodriguez MD Work Phone: [facility] 04-29-2025 12:50-0400 Body height 154.[address] Khanh Rodriguez MD Work Phone: [facility] 04-29-2025 12:50-0400 Body temperature 96.8 [degF] Dr. Khanh Rodriguez MD Work Phone: [facility] 04-29-2025 12:50-0400 Diastolic blood pressure 66 mm[Hg] Dr. Khanh Rodriguez MD Work Phone: [facility] 04-29-2025 12:50-0400 Heart rate 63 /min Dr. Khanh Rodriguez MD Work Phone: [facility] 04-29-2025 12:50-0400 Respiratory rate 18 /min Dr. Khanh Rodriguez MD Work Phone: [facility] 04-29-2025 12:50-0400 SaO2% (BldA) [Mass fraction] 97 % Dr. Khanh Rodriguez MD Work Phone: [facility] 04-29-2025 12:50-0400 Systolic blood pressure 128 mm[Hg] Dr. Khanh Rodriguez MD Work Phone: [facility] 04-25-2025 13:01-0400 Body height 154.[address] Khanh Rodriguez MD Work Phone: [facility] 04-25-2025 13:01-0400 Body mass index (BMI) [Ratio] 24.5 kg/m2 Dr. Khanh Rodriguez MD Work Phone: [facility] 04-25-2025 13:01-0400 Body temperature 97.2 [degF] Dr. Khanh Rodriguez MD Work Phone: [facility] 04-25-2025 13:01-0400 Body weight 58.[address] Khanh Rodriguez MD Work Phone: [facility] 04-25-2025 13:01-0400 Diastolic blood pressure 57 mm[Hg] Dr. Khanh Rodriguez MD Work Phone: [facility] 04-25-2025 13:01-0400 Heart rate 70 /min Dr. Khanh Rodriguez MD Work Phone: [facility] 04-25-2025 13:01-0400 Respiratory rate 16 /min Dr. Khanh Rodriguez MD Work Phone: [facility] 04-25-2025 13:01-0400 SaO2% (BldA) [Mass fraction] 99 % Dr. Khanh Rodriguez MD Work Phone: [facility] 04-25-2025 13:01-0400 Systolic blood pressure 103 mm[Hg] Dr. Khanh Rodriguez MD Work Phone: [facility] 03-28-2025 12:14-0400 Body height 154.[address] Khanh Rodriguez MD Work Phone: [facility] 03-28-2025 12:14-0400 Body mass index (BMI) [Ratio] 25.4 kg/m2 Dr. Khanh Rodriguez MD Work Phone: [facility] 03-28-2025 12:14-0400 Body temperature 97.1 [degF] Dr. Khanh Rodriguez MD Work Phone: [facility] 03-28-2025 12:14-0400 Body weight 61.[address] Khanh Rodriguez MD Work Phone: [facility] 03-28-2025 12:14-0400 Diastolic blood pressure 60 mm[Hg] Dr. Khanh Rodriguez MD Work Phone: [facility] 03-28-2025 12:14-0400 Heart rate 62 /min Dr. Khanh Rodriguez MD Work Phone: [facility] 03-28-2025 12:14-0400 Respiratory rate 16 /min Dr. Khanh Rodriguez MD Work Phone: [facility] [facility] 03-28-2025 12:14-0400 SaO2% (BldA) [Mass fraction] 99 % Dr. Khanh Rodriguez MD Work Phone: [facility] 03-28-2025 12:14-0400 Systolic blood pressure 122 mm[Hg] Dr. Khanh Rodriguez MD Work Phone: [facility] 02-28-2025 12:14-0400 Body height 154.[address] Khanh Rodriguez MD Work Phone: [facility] 02-28-2025 12:14-0400 Body mass index (BMI) [Ratio] 25.4 kg/m2 Dr. Khanh Rodriguez MD Work Phone: [facility] 02-28-2025 12:14-0400 Body temperature 96.7 [degF] Dr. Khanh Rodriguez MD Work Phone: [facility] 02-28-2025 12:14-0400 Body weight 61.[address] Khanh Rodriguez MD Work Phone: [facility] 02-28-2025 12:14-0400 Diastolic blood pressure 48 mm[Hg] Dr. Khanh Rodriguez MD Work Phone: [facility] 02-28-2025 12:14-0400 Heart rate 66 /min Dr. Khanh Rodriguez MD Work Phone: [facility] 02-28-2025 12:14-0400 Respiratory rate 16 /min Dr. Khanh Rodriguez MD Work Phone: [facility] 02-28-2025 12:14-0400 SaO2% (BldA) [Mass fraction] 98 % Dr. Khanh Rodriguez MD Work Phone: [facility] 02-28-2025 12:14-0400 Systolic blood pressure 113 mm[Hg] Dr. Khanh Rodriguez MD Work Phone: [facility] 02-25-2025 14:33-0400 Body temperature 98.1 [degF] Nayan Blackmon MD Work Phone: [facility] 02-25-2025 14:33-0400 Diastolic blood pressure 63 mm[Hg] Nayan Blackmon MD Work Phone: [facility] 02-25-2025 14:33-0400 Heart rate 59 /min Nayan Blackmon MD Work Phone: [facility] 02-25-2025 14:33-0400 SaO2% (BldA) [Mass fraction] 99 % Nayan Blackmon MD Work Phone: [facility] 02-25-2025 14:33-0400 Systolic blood pressure 131 mm[Hg] Nayan Blackmon MD Work Phone: [facility] 02-18-2025 15:50-0400 Diastolic blood pressure 52 mm[Hg] [facility] Work Phone: [facility] 02-18-2025 15:50-0400 Heart rate 70 /min [facility] Work Phone: [facility] 02-18-2025 15:50-0400 Respiratory rate 18 /min [facility] Work Phone: [facility] 02-18-2025 15:50-0400 SaO2% (BldA) [Mass fraction] 98 % [facility] Work Phone: [facility] 02-18-2025 15:50-0400 Systolic blood pressure 118 mm[Hg] [facility] Work Phone: [facility] 02-18-2025 14:30-0400 Body temperature 96.6 [degF] [facility] Work Phone: [facility] 02-11-2025 15:31-0400 Body mass index (BMI) [Ratio] 29.94 kg/m2 Nayan Blackmon MD Work Phone: [facility] 02-11-2025 15:31-0400 Body temperature 97.7 [degF] Nayan Blackmon MD Work Phone: [facility] 02-11-2025 15:31-0400 Body weight 74.25 kg Nayan Blackmon MD Work Phone: [facility] 02-11-2025 15:31-0400 Diastolic blood pressure 66 mm[Hg] Nayan Blackmon MD Work Phone: [facility] 02-11-2025 15:31-0400 Heart rate 68 /min Nayan Blackmon MD Work Phone: [facility] 02-11-2025 15:31-0400 Respiratory rate 20 /min Nayan Blackmon MD Work Phone: [facility] 02-11-2025 15:31-0400 SaO2% (BldA) [Mass fraction] 98 % Nayan Blackmon MD Work Phone: [facility] 02-11-2025 15:31-0400 Systolic blood pressure 117 mm[Hg] Nayan Blackmon MD Work Phone: [facility] 01-31-2025 11:07-0400 Body height 154.[address] Khanh Rodriguez MD Work Phone: [facility] 01-31-2025 11:07-0400 Body mass index (BMI) [Ratio] 25.3 kg/m2 Dr. Khanh Rodriguez MD Work Phone: [facility] 01-31-2025 11:07-0400 Body temperature 96.9 [degF] Dr. Khanh Rodriguez MD Work Phone: [facility] 01-31-2025 11:07-0400 Body weight 60.[address] Khanh Rodriguez MD Work Phone: [facility] 01-31-2025 11:07-0400 Diastolic blood pressure 70 mm[Hg] Dr. Khanh Rodriguez MD Work Phone: [facility] 01-31-2025 11:07-0400 Heart rate 70 /min Dr. Khanh Rodriguez MD Work Phone: [facility] 01-31-2025 11:07-0400 Respiratory rate 16 /min Dr. Khanh Rodriguez MD Work Phone: [facility] 01-31-2025 11:07-0400 SaO2% (BldA) [Mass fraction] 100 % Dr. Khanh Rodriguez MD Work Phone: [facility] 01-31-2025 11:07-0400 Systolic blood pressure 123 mm[Hg] Dr. Khanh Rodriguez MD Work Phone: [facility] 01-23-2025 13:22-0400 Body temperature 98.2 [degF] Dr. Khanh Rodriguez MD Work Phone: [facility] 01-23-2025 13:22-0400 Diastolic blood pressure 66 mm[Hg] Dr. Khanh Rodriguez MD Work Phone: [facility] 01-23-2025 13:22-0400 Heart rate 66 /min Dr. Khanh Rodriguez MD Work Phone: [facility] 01-23-2025 13:22-0400 Respiratory rate 16 /min Dr. Khanh Rodriguez MD Work Phone: [facility] 01-23-2025 13:22-0400 SaO2% (BldA) [Mass fraction] 96 % Dr. Khanh Rodriguez MD Work Phone: [facility] 01-23-2025 13:22-0400 Systolic blood pressure 119 mm[Hg] Dr. Khanh Rodriguez MD Work Phone: [facility] 01-22-2025 11:52-0400 Body height 157.[address] Khanh Rodriguez MD Work Phone: [facility] 01-22-2025 11:52-0400 Body mass index (BMI) [Ratio] 26.3 kg/m2 Dr. Khanh Rodriguez MD Work Phone: [facility] 01-22-2025 11:52-0400 Body temperature 97.2 [degF] Dr. Khanh Rodriguez MD Work Phone: [facility] 01-22-2025 11:52-0400 Body weight 65.[address] Khanh Rodriguez MD Work Phone: [facility] 01-22-2025 11:52-0400 Diastolic blood pressure 60 mm[Hg] Dr. Khanh Rodriguez MD Work Phone: [facility] 01-22-2025 11:52-0400 Heart rate 64 /min Dr. Khanh Rodriguez MD Work Phone: [facility] 01-22-2025 11:52-0400 Respiratory rate 16 /min Dr. Khanh Rodriguez MD Work Phone: [facility] 01-22-2025 11:52-0400 SaO2% (BldA) [Mass fraction] 95 % Dr. Khanh Rodriguez MD Work Phone: [facility] 01-22-2025 11:52-0400 Systolic blood pressure 110 mm[Hg] Dr. Khanh Rodriguez MD Work Phone: [facility] 06-17-2024 14:11-0400 Body weight 65.[address] Khanh Rodriguez MD Work Phone: [facility] 06-12-2024 10:30-0400 Body height 157.5 cm Monse Merlos PA-C Work Phone: [facility] 06-12-2024 10:30-0400 Body mass index (BMI) [Ratio] 27.82 kg/m2 Monse MARQUEZ-C Work Phone: [facility] 06-12-2024 10:30-0400 Body weight 69 kg Monse Merlos PA-C Work Phone: [facility] 06-12-2024 10:30-0400 Diastolic blood pressure 63 mm[Hg] Monse Merlos PA-C Work Phone: [facility] 06-12-2024 10:30-0400 Heart rate 52 /min Monse Merlos PA-C Work Phone: [facility] 06-12-2024 10:30-0400 SaO2% (BldA) [Mass fraction] 99 % Monse Merlos PA-C Work Phone: [facility] 06-12-2024 10:30-0400 Systolic blood pressure 126 mm[Hg] Monse Merlos PA-C Work Phone: [facility] 04-23-2024 10:38-0400 Diastolic blood pressure 68 mm[Hg] Gt Yin DO Work Phone: [facility] 04-23-2024 10:38-0400 Heart rate 59 /min Gt Yin DO Work Phone: [facility] 04-23-2024 10:38-0400 SaO2% (BldA) [Mass fraction] 100 % Gt Yin DO Work Phone: [facility] 04-23-2024 10:38-0400 Systolic blood pressure 126 mm[Hg] Gt Yin DO Work Phone: [facility] 04-02-2024 13:11-0400 Body height 157.5 cm Marisela Mccarty MD Work Phone: [facility] 04-02-2024 13:11-0400 Body mass index (BMI) [Ratio] 27.82 kg/m2 Marisela Mccarty MD Work Phone: [facility] 04-02-2024 13:11-0400 Body weight 69 kg Marisela Mccarty MD Work Phone: [facility] 02-27-2024 08:46-0400 Diastolic blood pressure 66 mm[Hg] Gt Yin DO Work Phone: [facility] 02-27-2024 08:46-0400 Heart rate 61 /min Gt Yin DO Work Phone: [facility] 02-27-2024 08:46-0400 SaO2% (BldA) [Mass fraction] 99 % Gt Yin DO Work Phone: [facility] 02-27-2024 08:46-0400 Systolic blood pressure 128 mm[Hg] Gt Yin DO Work Phone: [facility] 01-05-2024 10:10-0400 Body height 162.[address] Khanh Rodriguez Work Phone: [facility] 01-05-2024 10:10-0400 Body mass index (BMI) [Ratio] 26.1 kg/m2 Dr. Khanh Rodriguez Work Phone: [facility] 01-05-2024 10:10-0400 Body temperature 97.1 [degF] Dr. Khanh Rodriguez Work Phone: [facility] 01-05-2024 10:10-0400 Body weight 68.[address] Khanh Rodriguez Work Phone: [facility] 01-05-2024 10:10-0400 Diastolic blood pressure 68 mm[Hg] Dr. Khanh Rodriguez Work Phone: [facility] 01-05-2024 10:10-0400 Heart rate 80 /min Dr. Khanh Rodriguez Work Phone: [facility] 01-05-2024 10:10-0400 Respiratory rate 14 /min Dr. Khanh Rodriguez Work Phone: [facility] 01-05-2024 10:10-0400 SaO2% (BldA) [Mass fraction] 99 % Dr. Khanh Rodriguez Work Phone: [facility] 01-05-2024 10:10-0400 Systolic blood pressure 130 mm[Hg] Dr. Khanh Rodriguez Work Phone: [facility] 12-30-2023 13:48-0400 Body temperature 97.5 [degF] Dr. Khanh Rodriguez Work Phone: [facility] 12-30-2023 13:48-0400 Diastolic blood pressure 61 mm[Hg] Dr. Khanh Rodriguez Work Phone: [facility] 12-30-2023 13:48-0400 Heart rate 65 /min Dr. Khanh Rodriguez Work Phone: [facility] 12-30-2023 13:48-0400 Respiratory rate 18 /min Dr. Khanh Rodriguez Work Phone: [facility] 12-30-2023 13:48-0400 SaO2% (BldA) [Mass fraction] 99 % Dr. Khanh Rodirguez Work Phone: [facility] 12-30-2023 13:48-0400 Systolic blood pressure 111 mm[Hg] Dr. Khanh Rodriguez Work Phone: [facility] 12-30-2023 04:27-0400 Body mass index (BMI) [Ratio] 27.4 kg/m2 Dr. Khanh Rodriguez Work Phone: [facility] 12-30-2023 04:27-0400 Body weight 72.[address] Khanh Rodriguez Work Phone: [facility] 12-28-2023 14:16-0400 Body height 162.[address] Khanh Rodriguez Work Phone: [facility] 12-27-2023 13:32-0400 Body temperature 97.5 [degF] Dr. Khanh Rodriguez Work Phone: [facility] 12-27-2023 13:32-0400 Diastolic blood pressure 61 mm[Hg] Dr. Khanh Rodriguez Work Phone: [facility] 12-27-2023 13:32-0400 Heart rate 76 /min Dr. Khanh Rodriguez Work Phone: [facility] 12-27-2023 13:32-0400 Respiratory rate 16 /min Dr. Khanh Rodriguez Work Phone: [facility] 12-27-2023 13:32-0400 SaO2% (BldA) [Mass fraction] 96 % Dr. Khanh Rodriguez Work Phone: [facility] 12-27-2023 13:32-0400 Systolic blood pressure 121 mm[Hg] Dr. Khanh Rodriguez Work Phone: [facility] 12-27-2023 08:47-0400 Body height 159.[address] Khanh Rodriguez Work Phone: [facility] 11-29-2023 09:41-0400 Body temperature 97.4 [degF] Dr. Khanh Rodriguez Work Phone: [facility] 11-29-2023 09:41-0400 Diastolic blood pressure 65 mm[Hg] Dr. Khanh Rodriguez Work Phone: [facility] 11-29-2023 09:41-0400 Heart rate 72 /min Dr. Khanh Rodriguez Work Phone: [facility] 11-29-2023 09:41-0400 Respiratory rate 20 /min Dr. Khanh Rodriguez Work Phone: [facility] 11-29-2023 09:41-0400 Systolic blood pressure 133 mm[Hg] Dr. Khanh Rodriguez Work Phone: [facility] 11-15-2023 15:24-0400 Body height 160.[address] Khanh Rodriguez Work Phone: [facility] 11-15-2023 15:24-0400 Body mass index (BMI) [Ratio] 26.9 kg/m2 Dr. Khanh Rodriguez Work Phone: [facility] 11-15-2023 15:24-0400 Body temperature 98.2 [degF] Dr. Khanh Rodriguez Work Phone: [facility] 11-15-2023 15:24-0400 Body weight 68.[address] Khanh Rodriguez Work Phone: [facility] 11-15-2023 15:24-0400 Diastolic blood pressure 70 mm[Hg] Dr. Khanh Rodriguez Work Phone: [facility] 11-15-2023 15:24-0400 Heart rate 70 /min Dr. Khanh Rodriguez Work Phone: [facility] 11-15-2023 15:24-0400 Respiratory rate 16 /min Dr. Khanh Rodriguez Work Phone: [facility] 11-15-2023 15:24-0400 SaO2% (BldA) [Mass fraction] 99 % Dr. Khanh Rodriguez Work Phone: [facility] 11-15-2023 15:24-0400 Systolic blood pressure 116 mm[Hg] Dr. Khanh Rodriguez Work Phone: [facility] 11-15-2023 09:45-0400 Body temperature 96.1 [degF] Dr. Khanh Rodriguez Work Phone: [facility] 11-15-2023 09:45-0400 Diastolic blood pressure 60 mm[Hg] Dr. Khanh Rodriguez Work Phone: [facility] 11-15-2023 09:45-0400 Heart rate 67 /min Dr. Khanh Rodriguez Work Phone: [facility] 11-15-2023 09:45-0400 Respiratory rate 20 /min Dr. Khanh Rodriguez Work Phone: [facility] 11-15-2023 09:45-0400 Systolic blood pressure 139 mm[Hg] Dr. Khanh Rodriguez Work Phone: [facility] 11-03-2023 10:57-0500 Body height 160.[address] Khanh Rodriguez Work Phone: [facility] 11-03-2023 10:57-0500 Body mass index (BMI) [Ratio] 25.8 kg/m2 Dr. Khanh Rodriguez Work Phone: [facility] 11-03-2023 10:57-0500 Body temperature 97.2 [degF] Dr. Khanh Rodriguez Work Phone: [facility] 11-03-2023 10:57-0500 Body weight 66.[address] Khanh Rodriguez Work Phone: [facility] 11-03-2023 10:57-0500 Diastolic blood pressure 62 mm[Hg] Dr. Khanh Rodriguez Work Phone: [facility] 11-03-2023 10:57-0500 Heart rate 100 /min Dr. Khanh Rodriguez Work Phone: [facility] 11-03-2023 10:57-0500 Respiratory rate 16 /min Dr. Khanh Rodriguez Work Phone: [facility] 11-03-2023 10:57-0500 SaO2% (BldA) [Mass fraction] 97 % Dr. Khanh Rodriguez Work Phone: [facility] 11-03-2023 10:57-0500 Systolic blood pressure 112 mm[Hg] Dr. Khanh Rodriguez Work Phone: [facility] 11-02-2023 11:38-0500 Body temperature 98 [degF] Dr. Khanh Rodriguez Work Phone: [facility] 11-02-2023 11:38-0500 Body weight 66.[address] Khanh Rodriguez Work Phone: [facility] 11-02-2023 11:38-0500 Diastolic blood pressure 66 mm[Hg] Dr. Khanh Rodriguez Work Phone: [facility] 11-02-2023 11:38-0500 Heart rate 73 /min Dr. Khanh Rodriguez Work Phone: [facility] 11-02-2023 11:38-0500 Respiratory rate 16 /min Dr. Khanh Rodriguez Work Phone: [facility] 11-02-2023 11:38-0500 SaO2% (BldA) [Mass fraction] 99 % Dr. Khanh Rodriguez Work Phone: [facility] 11-02-2023 11:38-0500 Systolic blood pressure 124 mm[Hg] Dr. Khanh Rodriguez Work Phone: [facility] 11-01-2023 08:51-0500 Body temperature 97.7 [degF] Dr. Khanh Rodriguez Work Phone: [facility] 11-01-2023 08:51-0500 Diastolic blood pressure 51 mm[Hg] Dr. Khanh Rodriguez Work Phone: [facility] 11-01-2023 08:51-0500 Heart rate 69 /min Dr. Khanh Rodriguez Work Phone: [facility] 11-01-2023 08:51-0500 Respiratory rate 16 /min Dr. Khanh Rodriguez Work Phone: [facility] 11-01-2023 08:51-0500 Systolic blood pressure 120 mm[Hg] Dr. Khanh Rodriguez Work Phone: [facility] 10-26-2023 11:20-0500 Body height 160.[address] Khanh Rodriguez Work Phone: [facility] 10-26-2023 11:20-0500 Body weight 67.[address] Khanh Rodriguez Work Phone: [facility] 10-25-2023 09:43-0500 Body temperature 96.6 [degF] Dr. Khanh Rodriguez Work Phone: [facility] 10-25-2023 09:43-0500 Diastolic blood pressure 53 mm[Hg] Dr. Khanh Rodriguez Work Phone: [facility] 10-25-2023 09:43-0500 Heart rate 63 /min Dr. Khanh Rodriguez Work Phone: [facility] 10-25-2023 09:43-0500 Respiratory rate 16 /min Dr. Khanh Rodriguez Work Phone: [facility] 10-25-2023 09:43-0500 Systolic blood pressure 117 mm[Hg] Dr. Khanh Rodriguez Work Phone: [facility] 10-18-2023 09:49-0500 Body temperature 97.9 [degF] Dr. Khanh Rodriguez Work Phone: [facility] 10-18-2023 09:49-0500 Diastolic blood pressure 62 mm[Hg] Dr. Khanh Rodriguez Work Phone: [facility] 10-18-2023 09:49-0500 Heart rate 74 /min Dr. Khanh Rodriguez Work Phone: [facility] 10-18-2023 09:49-0500 Respiratory rate 16 /min Dr. Khanh Rodriguez Work Phone: [facility] 10-18-2023 09:49-0500 Systolic blood pressure 124 mm[Hg] Dr. Khanh Rodriguez Work Phone: [facility] 10-04-2023 09:58-0500 Body temperature 97.1 [degF] Dr. Khanh Rodriguez Work Phone: [facility] 10-04-2023 09:58-0500 Diastolic blood pressure 50 mm[Hg] Dr. Khanh Rodriguez Work Phone: [facility] 10-04-2023 09:58-0500 Heart rate 62 /min Dr. Khanh Rodriguez Work Phone: [facility] 10-04-2023 09:58-0500 Respiratory rate 16 /min Dr. Khanh Rodriguez Work Phone: [facility] 10-04-2023 09:58-0500 Systolic blood pressure 112 mm[Hg] Dr. Khanh Rodriguez Work Phone: [facility] 09-21-2023 15:37-0500 Body temperature 97.1 [degF] Dr. Khanh Rodriguez Work Phone: [facility] 09-21-2023 15:37-0500 Diastolic blood pressure 68 mm[Hg] Dr. Khanh Rodriguez Work Phone: [facility] 09-21-2023 15:37-0500 Heart rate 72 /min Dr. Khanh Rodriguez Work Phone: [facility] 09-21-2023 15:37-0500 Respiratory rate 16 /min Dr. Khanh Rodriguez Work Phone: [facility] 09-21-2023 15:37-0500 SaO2% (BldA) [Mass fraction] 98 % Dr. Khanh Rodriguez Work Phone: [facility] 09-21-2023 15:37-0500 Systolic blood pressure 121 mm[Hg] Dr. Khanh Rodriguez Work Phone: [facility] 08-30-2023 08:36-0500 Body temperature 96.8 [degF] Dr. Khanh Rodriguez Work Phone: [facility] 08-30-2023 08:36-0500 Diastolic blood pressure 66 mm[Hg] Dr. Khanh Rodriguez Work Phone: [facility] 08-30-2023 08:36-0500 Heart rate 63 /min Dr. Khanh Rodriguez Work Phone: [facility] 08-30-2023 08:36-0500 Respiratory rate 16 /min Dr. Khanh Rodriguez Work Phone: [facility] 08-30-2023 08:36-0500 Systolic blood pressure 135 mm[Hg] Dr. Khanh Rodriguez Work Phone: [facility] 08-02-2023 10:39-0500 Body temperature 96.8 [degF] Dr. Khanh Rodriguez Work Phone: [facility] 08-02-2023 10:39-0500 Diastolic blood pressure 77 mm[Hg] Dr. Khanh Rodriguez Work Phone: [facility] 08-02-2023 10:39-0500 Heart rate 74 /min Dr. Khanh Rodriguez Work Phone: [facility] 08-02-2023 10:39-0500 Respiratory rate 18 /min Dr. Khanh Rodriguez Work Phone: [facility] 08-02-2023 10:39-0500 Systolic blood pressure 150 mm[Hg] Dr. Khanh Rodriguez Work Phone: [facility] 07-24-2023 15:19-0500 Body height 160.[address] Khanh Rodriguez Work Phone: [facility] 07-24-2023 15:19-0500 Body mass index (BMI) [Ratio] 26.4 kg/m2 Dr. Khanh Rodriguez Work Phone: [facility] 07-24-2023 15:19-0500 Body temperature 98 [degF] Dr. Khanh Rodriguez Work Phone: [facility] 07-24-2023 15:19-0500 Body weight 67.[address] Khanh Rodriguez Work Phone: [facility] 07-24-2023 15:19-0500 Diastolic blood pressure 67 mm[Hg] Dr. Khanh Rodriguez Work Phone: [facility] 07-24-2023 15:19-0500 Heart rate 66 /min Dr. Khanh Rodriguez Work Phone: [facility] 07-24-2023 15:19-0500 Respiratory rate 18 /min Dr. Kahnh Rodriguez Work Phone: [facility] 07-24-2023 15:19-0500 SaO2% (BldA) [Mass fraction] 98 % Dr. Khanh Rodriguez Work Phone: [facility] 07-24-2023 15:19-0500 Systolic blood pressure 120 mm[Hg] Dr. Khanh Rodriguez Work Phone: [facility] 07-20-2023 09:17-0500 Body mass index (BMI) [Ratio] 25.9 kg/m2 Dr. Khanh Rodriguez Work Phone: [facility] 07-20-2023 09:17-0500 Body temperature 97.2 [degF] Dr. Khanh Rodriguez Work Phone: [facility] 07-20-2023 09:17-0500 Body weight 66.[address] Khanh Rodriguez Work Phone: [facility] 07-20-2023 09:17-0500 Diastolic blood pressure 78 mm[Hg] Dr. Khanh Rodriguez Work Phone: [facility] 07-20-2023 09:17-0500 Heart rate 67 /min Dr. Khanh Rodriguez Work Phone: [facility] 07-20-2023 09:17-0500 Respiratory rate 16 /min Dr. Khanh Rodriguez Work Phone: [facility] 07-20-2023 09:17-0500 SaO2% (BldA) [Mass fraction] 97 % Dr. Khanh Rodriguez Work Phone: [facility] 07-20-2023 09:17-0500 Systolic blood pressure 126 mm[Hg] Dr. Khanh Rodriguez Work Phone: [facility] 07-10-2023 13:14-0500 Body mass index (BMI) [Ratio] 25.5 kg/m2 Dr. Khanh Rodriguez Work Phone: [facility] 07-10-2023 13:14-0500 Body temperature 98.2 [degF] Dr. Khanh Rodriguez Work Phone: [facility] 07-10-2023 13:14-0500 Body weight 65.[address] Khanh Rodriguez Work Phone: [facility] 07-10-2023 13:14-0500 Diastolic blood pressure 74 mm[Hg] Dr. Khanh Rodriguez Work Phone: [facility] 07-10-2023 13:14-0500 Heart rate 69 /min Dr. Khanh Rodriguez Work Phone: [facility] 07-10-2023 13:14-0500 Respiratory rate 18 /min Dr. Khanh Rodriguez Work Phone: [facility] 07-10-2023 13:14-0500 SaO2% (BldA) [Mass fraction] 98 % Dr. Khanh Rodriguez Work Phone: [facility] 07-10-2023 13:14-0500 Systolic blood pressure 132 mm[Hg] Dr. Khanh Rodriguez Work Phone: [facility] 06-28-2023 09:53-0400 Body temperature 97.1 [degF] Dr. Khanh Rodriguez Work Phone: [facility] 06-28-2023 09:53-0400 Diastolic blood pressure 72 mm[Hg] Dr. Khanh Rodriguez Work Phone: [facility] 06-28-2023 09:53-0400 Heart rate 76 /min Dr. Khanh Rodriguez Work Phone: [facility] 06-28-2023 09:53-0400 Respiratory rate 18 /min Dr. Khanh Rodriguez Work Phone: [facility] 06-28-2023 09:53-0400 Systolic blood pressure 135 mm[Hg] Dr. Khanh Rodriguez Work Phone: [facility] 06-13-2023 13:31-0400 Body temperature 98 [degF] Dr. Khanh Rodriguez Work Phone: [facility] 06-13-2023 13:31-0400 Diastolic blood pressure 62 mm[Hg] Dr. Khanh Rodriguez Work Phone: [facility] 06-13-2023 13:31-0400 Heart rate 74 /min Dr. Khanh Rodriguez Work Phone: [facility] 06-13-2023 13:31-0400 Respiratory rate 18 /min Dr. Khanh Rodriguez Work Phone: [facility] 06-13-2023 13:31-0400 SaO2% (BldA) [Mass fraction] 100 % Dr. Khanh Rodriguez Work Phone: [facility] 06-13-2023 13:31-0400 Systolic blood pressure 124 mm[Hg] Dr. Khanh Rodriguez Work Phone: [facility] 06-12-2023 15:51-0400 Body height 160.[address] Khanh Rodriguez Work Phone: [facility] 06-12-2023 15:51-0400 Body weight 68.[address] Khanh Rodriguez Work Phone: [facility] 06-12-2023 14:18-0400 Body mass index (BMI) [Ratio] 26.5 kg/m2 Dr. Khanh Rodriguez Work Phone: [facility] 06-12-2023 14:18-0400 Inhaled oxygen flow rate 2 L/min Dr. Khanh Rodriguez Work Phone: [facility] 05-31-2023 10:01-0400 Body temperature 96.7 [degF] Dr. Khanh Rodriguez Work Phone: [facility] 05-31-2023 10:01-0400 Diastolic blood pressure 50 mm[Hg] Dr. Khanh Rodriguez Work Phone: [facility] 05-31-2023 10:01-0400 Heart rate 63 /min Dr. Khanh Rodriguez Work Phone: [facility] 05-31-2023 10:01-0400 Respiratory rate 18 /min Dr. Khanh Rodriguez Work Phone: [facility] 05-31-2023 10:01-0400 Systolic blood pressure 125 mm[Hg] Dr. Khanh Rodriguez Work Phone: [facility] 05-24-2023 13:52-0400 Body height 162.[address] Khanh Rodriguez Work Phone: [facility] 05-24-2023 13:52-0400 Body mass index (BMI) [Ratio] 25.4 kg/m2 Dr. Khanh Rodriguez Work Phone: [facility] 05-24-2023 13:52-0400 Body temperature 97.6 [degF] Dr. Khanh Rodriguez Work Phone: [facility] 05-24-2023 13:52-0400 Body weight 67.[address] Khanh Rodriguez Work Phone: [facility] 05-24-2023 13:52-0400 Diastolic blood pressure 74 mm[Hg] Dr. Khanh Rodriguez Work Phone: [facility] 05-24-2023 13:52-0400 Heart rate 61 /min Dr. Khanh Rodriguez Work Phone: [facility] 05-24-2023 13:52-0400 Respiratory rate 16 /min Dr. Khanh Rodriguez Work Phone: [facility] 05-24-2023 13:52-0400 SaO2% (BldA) [Mass fraction] 97 % Dr. Khanh Rodriguez Work Phone: [facility] 05-24-2023 13:52-0400 Systolic blood pressure 116 mm[Hg] Dr. Khanh Rodriguez Work Phone: [facility] 05-15-2023 15:56-0400 Body height 162.[address] Khanh Rodriguez Work Phone: [facility] 05-15-2023 15:56-0400 Body mass index (BMI) [Ratio] 24.5 kg/m2 Dr. Khanh Rodriguez Work Phone: [facility] 05-15-2023 15:56-0400 Body temperature 96.8 [degF] Dr. Khanh Rodriguez Work Phone: [facility] 05-15-2023 15:56-0400 Body weight 64.[address] Khanh Rodriguez Work Phone: [facility] 05-15-2023 15:56-0400 Diastolic blood pressure 71 mm[Hg] Dr. Khanh Rodriguez Work Phone: [facility] 05-15-2023 15:56-0400 Heart rate 69 /min Dr. Khanh Rodriguez Work Phone: [facility] 05-15-2023 15:56-0400 Respiratory rate 17 /min Dr. Khanh Rodriguez Work Phone: [facility] 05-15-2023 15:56-0400 SaO2% (BldA) [Mass fraction] 99 % Dr. Khanh Rodriguez Work Phone: [facility] 05-15-2023 15:56-0400 Systolic blood pressure 119 mm[Hg] Dr. Khanh Rodriguez Work Phone: [facility] 05-03-2023 10:00-0400 Body temperature 97.8 [degF] Dr. Khanh Rodriguez Work Phone: [facility] 05-03-2023 10:00-0400 Body weight 65.[address] Khanh Rodriguez Work Phone: [facility] 05-03-2023 10:00-0400 Diastolic blood pressure 74 mm[Hg] Dr. Khanh Rodriguez Work Phone: [facility] 05-03-2023 10:00-0400 Heart rate 71 /min Dr. Khanh Rodriguez Work Phone: [facility] 05-03-2023 10:00-0400 Respiratory rate 16 /min Dr. Khanh Rodriguez Work Phone: [facility] 05-03-2023 10:00-0400 SaO2% (BldA) [Mass fraction] 100 % Dr. Khanh Rodriguez Work Phone: [facility] 05-03-2023 10:00-0400 Systolic blood pressure 129 mm[Hg] Dr. Khanh Rodriguez Work Phone: [facility] 04-26-2023 10:35-0400 Body height 162.[address] Khanh Rodriguez Work Phone: [facility] 04-26-2023 10:35-0400 Body mass index (BMI) [Ratio] 24.7 kg/m2 Dr. Khanh Rodriguez Work Phone: [facility] 04-26-2023 10:35-0400 Body temperature 95.9 [degF] Dr. Khanh Rodriguez Work Phone: [facility] 04-26-2023 10:35-0400 Body weight 65.[address] Khanh Rodriguez Work Phone: [facility] 04-26-2023 10:35-0400 Diastolic blood pressure 72 mm[Hg] Dr. Khanh Rodriguez Work Phone: [facility] 04-26-2023 10:35-0400 Heart rate 70 /min Dr. Khanh Rodriguez Work Phone: [facility] 04-26-2023 10:35-0400 Respiratory rate 18 /min Dr. Khanh Rodriguez Work Phone: [facility] 04-26-2023 10:35-0400 SaO2% (BldA) [Mass fraction] 99 % Dr. Khanh Rodriguez Work Phone: [facility] 04-26-2023 10:35-0400 Systolic blood pressure 138 mm[Hg] Dr. Khanh Rodriguez Work Phone: [facility] 04-19-2023 10:55-0400 Body mass index (BMI) [Ratio] 23.5 kg/m2 Dr. Khanh Rodriguez Work Phone: [facility] 04-19-2023 10:55-0400 Body temperature 96.9 [degF] Dr. Khanh Rodriguez Work Phone: [facility] 04-19-2023 10:55-0400 Diastolic blood pressure 65 mm[Hg] Dr. Khanh Rodriguez Work Phone: [facility] 04-19-2023 10:55-0400 Heart rate 63 /min Dr. Khanh Rodriguez Work Phone: [facility] 04-19-2023 10:55-0400 Respiratory rate 16 /min Dr. Khanh Rodriguez Work Phone: [facility] 04-19-2023 10:55-0400 Systolic blood pressure 120 mm[Hg] Dr. Khanh Rodriguez Work Phone: [facility] 04-04-2023 00:38-0400 Body weight 62.[address] Khanh Rodriguez Work Phone: [facility] 03-29-2023 11:11-0400 Body mass index (BMI) [Ratio] 23.5 kg/m2 Dr. Khanh Rodriguez Work Phone: [facility] 03-29-2023 11:11-0400 Body temperature 97 [degF] Dr. Khanh Rodriguez Work Phone: [facility] 03-29-2023 11:11-0400 Diastolic blood pressure 50 mm[Hg] Dr. Khanh Rodriguez Work Phone: [facility] 03-29-2023 11:11-0400 Heart rate 61 /min Dr. Khanh Rodriguez Work Phone: [facility] 03-29-2023 11:11-0400 Respiratory rate 18 /min Dr. Khanh Rodriguez Work Phone: [facility] 03-29-2023 11:11-0400 Systolic blood pressure 107 mm[Hg] Dr. Khanh Rodriguez Work Phone: [facility] 03-04-2023 01:35-0400 Body weight 62.[address] Khanh Rodriguez Work Phone: [facility] 03-01-2023 09:39-0400 Body mass index (BMI) [Ratio] 23.5 kg/m2 Dr. Khanh Rodriguez Work Phone: [facility] 03-01-2023 09:39-0400 Body temperature 97 [degF] Dr. Khanh Rodriguez Work Phone: [facility] 03-01-2023 09:39-0400 Diastolic blood pressure 65 mm[Hg] Dr. Khanh Rodriguez Work Phone: [facility] 03-01-2023 09:39-0400 Heart rate 65 /min Dr. Khanh Rodriguez Work Phone: [facility] 03-01-2023 09:39-0400 Respiratory rate 16 /min Dr. Khanh Rodriguez Work Phone: [facility] 03-01-2023 09:39-0400 Systolic blood pressure 109 mm[Hg] Dr. Khanh Rodriguez Work Phone: [facility] 02-02-2023 00:49-0400 Body weight 62.[address] Khanh Rodriguez Work Phone: [facility] 02-01-2023 11:13-0400 Body mass index (BMI) [Ratio] 23.5 kg/m2 Dr. Khanh Rodriguez Work Phone: [facility] 02-01-2023 11:13-0400 Body temperature 97.2 [degF] Dr. Khanh Rodriguez Work Phone: [facility] 02-01-2023 11:13-0400 Diastolic blood pressure 54 mm[Hg] Dr. Khanh Rodriguez Work Phone: [facility] 02-01-2023 11:13-0400 Heart rate 66 /min Dr. Khanh Rodriguez Work Phone: [facility] 02-01-2023 11:13-0400 Respiratory rate 16 /min Dr. Khanh Rodriguez Work Phone: [facility] 02-01-2023 11:13-0400 Systolic blood pressure 105 mm[Hg] Dr. Khanh Rodriguez Work Phone: [facility] 01-25-2023 09:15-0400 Body height 162.[address] Khanh Rodriguez Work Phone: [facility] 01-25-2023 09:15-0400 Body weight 62.[address] Khanh Rodriguez Work Phone: [facility] 01-20-2023 09:47-0400 Body mass index (BMI) [Ratio] 24.5 kg/m2 Dr. Khanh Rodriguez Work Phone: [facility] 01-20-2023 09:47-0400 Body temperature 97.3 [degF] Dr. Khanh Rodriguez Work Phone: [facility] 01-20-2023 09:47-0400 Body weight 64.[address] Khanh Rodriguez Work Phone: [facility] 01-20-2023 09:47-0400 Diastolic blood pressure 64 mm[Hg] Dr. Khanh Rodriguez Work Phone: [facility] 01-20-2023 09:47-0400 Heart rate 70 /min Dr. Khanh Rodriguez Work Phone: [facility] 01-20-2023 09:47-0400 Respiratory rate 18 /min Dr. Khanh Rodriguez Work Phone: [facility] 01-20-2023 09:47-0400 SaO2% (BldA) [Mass fraction] 98 % Dr. Khanh Rodriguez Work Phone: [facility] 01-20-2023 09:47-0400 Systolic blood pressure 114 mm[Hg] Dr. Khanh Rodriguez Work Phone: [facility] 05-31-2022 09:07-0400 Body height 162.56 cm No Primary Care Physician [facility] Work Phone: 05-31-2022 09:07-0400 Body mass index (BMI) [Ratio] 24.4 kg/m2 No Primary Care Physician [facility] Work Phone: 05-31-2022 09:07-0400 Body temperature 96.8 [degF] No Primary Care Physician [facility] Work Phone: 05-31-2022 09:07-0400 Body weight 64.52 kg No Primary Care Physician [facility] Work Phone: 05-31-2022 09:07-0400 Diastolic blood pressure 70 mm[Hg] No Primary Care Physician [facility] Work Phone: 05-31-2022 09:07-0400 Heart rate 71 /min No Primary Care Physician [facility] Work Phone: 05-31-2022 09:07-0400 Respiratory rate 18 /min No Primary Care Physician [facility] Work Phone: 05-31-2022 09:07-0400 SaO2% (BldA) [Mass fraction] 99 % No Primary Care Physician [facility] Work Phone: 05-31-2022 09:07-0400 Systolic blood pressure 130 mm[Hg] No Primary Care Physician [facility] Work Phone: 03-25-2022 09:16-0400 Body height 162.56 cm No Primary Care Physician [facility] Work Phone: 03-25-2022 09:16-0400 Body mass index (BMI) [Ratio] 23.1 kg/m2 No Primary Care Physician [facility] Work Phone: 03-25-2022 09:16-0400 Body temperature 97.2 [degF] No Primary Care Physician [facility] Work Phone: 03-25-2022 09:16-0400 Body weight 61.23 kg No Primary Care Physician [facility] Work Phone: 03-25-2022 09:16-0400 Diastolic blood pressure 70 mm[Hg] No Primary Care Physician [facility] Work Phone: 03-25-2022 09:16-0400 Heart rate 80 /min No Primary Care Physician [facility] Work Phone: 03-25-2022 09:16-0400 Respiratory rate 14 /min No Primary Care Physician [facility] Work Phone: 03-25-2022 09:16-0400 SaO2% (BldA) [Mass fraction] 97 % No Primary Care Physician [facility] Work Phone: 03-25-2022 09:16-0400 Systolic blood pressure 100 mm[Hg] No Primary Care Physician [facility] Work Phone: Encounters Encounter Date Encounter Type Care Provider Facility Start: 05-28-2025 End: 06-03-2025 Evaluation and management of inpatient SUKHDEVDANILOMARYSE RAMOSE Facility:[facility] Start: 05-27-2025 End: 05-28-2025 ambulatory AMANDA SOTO Facility:[facility] Start: 05-27-2025 End: 05-27-2025 ambulatory NAYAN BLACKMON Facility:[facility] Start: 05-26-2025 ambulatory Efewongbe Oleghe Facili ty:[facility] Start: 05-21-2025 ambulatory Efewongbe Oleghe Facili ty:[facility] Start: 05-21-2025 End: 05-21-2025 Patient encounter procedure Solo MARQUEZ -[facility] Work Phone: Start: 05-21-2025 End: 05-21-[address] Khanh Rodriguez MD Work Phone: -[facility] Start: 05-20-2025 End: 05-20-2025 ambulatory Amanda Soto PT Work Phone: [facility] Start: 05-20-2025 End: 05-20-2025 Patient encounter procedure Amanda Soto PT Work Phone: [facility] Comment on above: Venous stasis ulcer of calf with fat layer exposed, unspecified laterality, unspecified whether varicose veins present (HCC) (Primary Dx); Venous ulcer (HCC) Start: 05-13-2025 End: 05-13-[address] Khanh Rodriguez MD Work Phone: -[facility] Start: 05-13-2025 End: 05-13-2025 Patient encounter procedure Tracy MARQUEZ -[facility] Work Phone: Start: 05-13-2025 End: 05-13-2025 ambulatory Amanda Stoddarda PT Work Phone: [facility] Start: 05-13-2025 End: 05-13-2025 Patient encounter procedure Amanda Stoddarda PT Work Phone: [facility] Comment on above: Venous ulcer (HCC) ( Primary Dx) Start: 05-13-2025 End: 05-13-2025 ambulatory Tracy Lopez Facility:[facility] Start: 05-10-2025 End: 05-10-2025 Transcribe Orders Tracy MARQUEZ Work Phone: Referring Physician Comment on above: Spinal stenosis of l umbar region with neurogenic claudication (Primary Dx); Low back pain, unspecified back pain laterality, unspecified chronicity, unspecified whether sciatica present Start: 05-08-2025 End: 05-08-[address] Jacob Amor MD -[facility] Start: 05-08-2025 End: 05-08-[address] Khanh Rodriguez MD Work Phone: -[facility] Start: 05-06-2025 End: 05-06-2025 ambulatory Amanda Soto PT Work Phone: [facility] Start: 05-06-2025 End: 05-06-2025 Patient encounter procedure Amanda Soto PT Work Phone: [facility] Comment on above: Venous ulcer (HCC) ( Primary Dx) Start: 04-29-2025 End: 04-29-2025 Patient encounter procedure Liseth BAKER -[facility] Work Phone: Start: 04-29-2025 End: 04-29-[address] Khanh Rodriguez MD Work Phone: -[facility] Start: 04-28-2025 End: 04-28-2025 ambulatory Amanda Soto PT Work Phone: [facility] Start: 04-28-2025 End: 04-28-2025 Patient encounter procedure Amanda Soto PT Work Phone: [facility] Comment on above: Venous ulcer (HCC) ( Primary Dx) Start: 04-25-2025 End: 04-25-[address] Khanh Rodriguez MD [facility] Work Phone: Start: 04-25-2025 End: 04-25-[address] Khanh Rodriguez MD Work Phone: -[facility] Start: 04-22-2025 End: 04-23-2025 ambulatory Amanda Soto PT Work Phone: [facility] Start: 04-22-2025 End: 04-22-2025 Patient encounter procedure Amanda Soto PT Work Phone: [facility] Comment on above: Venous ulcer (HCC) ( Primary Dx) Start: 04-15-2025 End: 04-16-2025 ambulatory Amanda Soto PT Work Phone: [facility] Start: 04-15-2025 End: 04-16-2025 Patient encounter procedure Amanda Soto PT Work Phone: [facility] Comment on above: Venous ulcer (HCC) ( Primary Dx) Start: 04-08-2025 End: 04-08-2025 ambulatory AMANDA SOTO Facility:[facility] Start: 04-01-2025 End: 04-01-2025 ambulatory Amanda Soto PT Work Phone: [facility] Start: 04-01-2025 End: 04-01-2025 Patient encounter procedure Amanda Soto PT Work Phone: [facility] Comment on above: Venous ulcer (HCC) ( Primary Dx) Start: 03-28-2025 End: 03-28-[address] Khanh Rodriguez MD [facility] Work Phone: Start: 03-28-2025 End: 03-28-[address] Khanh Rodriguez MD Work Phone: [facility] Start: 03-25-2025 End: 03-26-2025 ambulatory Amanda Soto PT Work Phone: [facility] Start: 03-25-2025 End: 03-26-2025 Patient encounter procedure Amanda Soto PT Work Phone: [facility] Comment on above: Venous ulcer (HCC) ( Primary Dx) Start: 03-19-2025 End: 03-19-2025 Patient encounter procedure Amanda Soto PT Work Phone: [facility] Comment on above: Venous ulcer (HCC) ( Primary Dx) Start: 03-19-2025 End: 03-19-2025 ambulatory Amanda Soto PT Work Phone: [facility] Start: 03-11-2025 End: 03-11-2025 ambulatory Amanda Soto PT Work Phone: [facility] Start: 03-11-2025 End: 03-11-2025 Patient encounter procedure Amanda Soto PT Work Phone: [facility] Comment on above: Venous ulcer (HCC) ( Primary Dx) Start: 03-04-2025 [facility] Start: 03-03-2025 End: 03-03-2025 ambulatory Amanda Soto PT Work Phone: [facility] Start: 03-03-2025 End: 03-03-2025 Patient encounter procedure Amanda Soto PT Work Phone: [facility] Comment on above: Venous ulcer (HCC) ( Primary Dx) Start: 02-28-2025 End: 02-28-[address] Khanh Rodriguez MD [facility] Work Phone: Start: 02-28-2025 End: 02-28-[address] Khanh Rodriguez MD Work Phone: -[facility] Start: 02-25-2025 End: 02-25-2025 ambulatory NAYAN BLACKMON Facility:[facility] Start: 02-25-2025 End: 02-25-2025 Patient encounter procedure Nayan Blackmon MD Work Phone: Plastic Surgery Comment on above: Pseudomonas aerugino sa infection (Primary Dx); Venous ulcer (HCC); Alcoholic cirrhosis of liver with ascites (HCC); Anxiety; Umbilical hernia without obstruction or gangrene Start: 02-24-2025 End: 02-24-2025 Patient encounter procedure Amanda Soto PT Work Phone: [facility] Comment on above: Venous ulcer (HCC) ( Primary Dx) Start: 02-24-2025 End: 02-24-2025 ambulatory Amanda Soto PT Work Phone: [facility] Start: 02-24-2025 End: 02-24-[address] Nayan Blackmon MD [facility] Start: 02-24-[address] Nayan Blackmon MD -[facility] Start: 02-24-2025 End: 02-24-[address] Khanh Rodriguez MD Work Phone: -[facility] Start: 02-18-2025 End: 02-18-2025 Subsequent hospital visit by physician Chair [facility] Work Phone: [facility]fusion Center Start: 02-18-2025 End: 02-18-2025 ambulatory AVELMARYSE RODRIGUEZ Facility:[facility] Start: 02-17-2025 End: 02-18-2025 Patient encounter procedure Amanda Soto PT Work Phone: [facility] Comment on above: Venous ulcer (HCC) ( Primary Dx) Start: 02-17-2025 End: 02-18-2025 ambulatory Amanda Stoddarda PT Work Phone: [facility] Start: 02-17-2025 End: 02-17-2025 Telephone encounter Nayan Blackmon MD Work Phone: Plastic Surgery Comment on above: Patient Question Start: 02-11-2025 End: 02-11-2025 ambulatory NAYAN BLACKMON Facility:[facility] Start: 02-11-2025 End: 02-11-2025 Patient encounter procedure Nayan Blackmon MD Work Phone: Plastic Surgery Comment on above: Pseudomonas aerugino sa infection (Primary Dx); Venous ulcer (HCC); Alcoholic cirrhosis of liver with ascites (HCC); Anxiety Start: 02-11-2025 End: 02-25-2025 Telephone encounter Nayan Blackmon MD Work Phone: [facility] Comment on above: [employer] (FO R [facility] USE ONLY) Start: 02-10-2025 End: 02-10-2025 Patient encounter procedure Amanda Soto PT Work Phone: [facility] Comment on above: Venous ulcer (HCC) ( Primary Dx) Start: 02-10-2025 End: 02-10-2025 ambulatory Amanda Soto PT Work Phone: [facility] Start: 02-03-2025 End: 02-03-2025 Patient encounter procedure Amanda Soto PT Work Phone: [facility] Comment on above: Venous ulcer (HCC) ( Primary Dx) Start: 02-03-2025 End: 02-03-2025 ambulatory Amanda Soto PT Work Phone: [facility] Start: 01-31-2025 End: 01-31-[address] Khanh Rodriguez MD [facility] Work Phone: Start: 01-31-2025 End: 01-31-[address] Khanh Rodriguez MD Work Phone: [facility] Work Phone: Start: 01-28-2025 End: 01-29-2025 ambulatory Amanda Soto PT Work Phone: [facility] Start: 01-28-2025 End: 01-28-2025 Patient encounter procedure Amanda Soto PT Work Phone: [facility] Comment on above: Venous ulcer of righ t lower extremity with varicose veins (HCC) (Primary Dx); Venous ulcer (HCC) Start: 01-23-2025 End: 01-23-[address] Nabeel Patel MD -[facility] Work Phone: Start: 01-23-2025 End: 01-23-2025 ambulatory Khanh Rodriguez Facility:[facility] Start: 01-23-[address] Fidel Patel MD -[facility] Start: 01-22-2025 End: 01-22-2025 Patient encounter procedure Solo MARQUEZ -[facility] Work Phone: Start: 01-22-2025 End: 01-22-[address] Khanh Rodriguez MD Work Phone: [facility] Work Phone: Start: 01-20-2025 End: 01-20-2025 ambulatory AMANDA SOTO Facility:[facility] Start: 01-13-2025 End: 01-13-2025 ambulatory Amanda Soto PT Work Phone: [facility] Start: 01-13-2025 End: 01-13-2025 Patient encounter procedure Amanda Soto PT Work Phone: [facility] Comment on above: Venous ulcer (HCC) ( Primary Dx) Start: 01-06-2025 End: 01-08-2025 Orders Only Gt Yin DO Work Phone: Vascular Surgery Comment on above: Venous ulcer (HCC) ( Primary Dx); Venous (peripheral) insufficiency; Secondary lymphedema Venous ulcer (HCC) ( Primary Dx) Start: [facility] Start: 06-26-2024 End: 06-27-2024 ambulatory Amanda Soto PT Work Phone: [facility] Start: 06-26-2024 End: 06-27-2024 Patient encounter procedure Amanda Stoddarda PT Work Phone: [facility] Comment on above: Venous ulcer (HCC) ( Primary Dx); Venous (peripheral) insufficiency; Secondary lymphedema Start: 06-20-2024 Encounter for other preprocedural examination Yamile Glez [facility] Start: 06-18-2024 End: 06-18-2024 ambulatory Amanda Soto PT Work Phone: [facility] Start: 06-18-2024 End: 06-18-2024 Patient encounter procedure Amanda Soto PT Work Phone: [facility] Comment on above: Venous ulcer (HCC) ( Primary Dx); Venous (peripheral) insufficiency; Secondary lymphedema Start: 06-17-2024 End: 06-17-2024 ambulatory [facility] Facility:[facility] Start: 06-14-2024 End: 06-14-2024 ambulatory [facility] Facility:[facility] Start: 06-12-2024 End: 06-12-2024 ambulatory Amanda Soto PT Work Phone: [facility] Start: 06-12-2024 End: 06-12-2024 Patient encounter procedure Amanda Soto PT Work Phone: [facility] Comment on above: Venous ulcer (HCC) ( Primary Dx); Venous (peripheral) insufficiency; Secondary lymphedema Start: 06-12-2024 End: 06-12-2024 Patient encounter procedure Monse Merlos PA-C Work Phone: [facility] Comment on above: Degenerative scolios is (Primary Dx) Start: 06-12-2024 End: 06-12-2024 ambulatory KHANH RODRIGUEZ Facility:[facility] Start: 06-04-2024 End: 06-04-2024 ambulatory Amanda Soto PT Work Phone: [facility] Start: 06-04-2024 End: 06-04-2024 Patient encounter procedure Amanda Soto PT Work Phone: [facility] Comment on above: Venous ulcer (HCC) ( Primary Dx); Venous (peripheral) insufficiency; Secondary lymphedema Start: 05-31-2024 ambulatory [facility] Facility :[facility] Start: 05-31-2024 End: 05-31-2024 ambulatory [facility] Facility:[facility] Start: 05-28-2024 End: 05-28-2024 ambulatory Amanda Stoddarda PT Work Phone: [facility] Start: 05-28-2024 End: 05-28-2024 Patient encounter procedure Amanda Stoddarda PT Work Phone: [facility] Comment on above: Venous ulcer (HCC) ( Primary Dx); Venous (peripheral) insufficiency; Secondary lymphedema Start: 05-21-2024 End: 05-21-2024 ambulatory Amanda Stoddarda PT Work Phone: [facility] Start: 05-21-2024 End: 05-21-2024 Patient encounter procedure Amanda Stoddarda PT Work Phone: [facility] Comment on above: Venous ulcer (HCC) ( Primary Dx); Venous (peripheral) insufficiency; Secondary lymphedema Start: 05-15-2024 End: 05-15-2024 Rosales Dickerson Work Phone: No Location Start: 05-15-2024 ambulatory Rosales Dickerson [facility] Start: 05-14-2024 End: 05-14-2024 Rosales Dickerson Work Phone: No Location Start: 05-14-2024 ambulatory Rosales Dickerson [facility] Start: 05-14-2024 End: 05-14-2024 ambulatory Amanda Soto PT Work Phone: [facility] Start: 05-14-2024 End: 05-14-2024 Patient encounter procedure Amanda Soto PT Work Phone: [facility] Comment on above: Venous ulcer (HCC) ( Primary Dx); Venous (peripheral) insufficiency; Secondary lymphedema Start: 05-10-2024 End: 05-11-2024 ambulatory Amanda Soto PT Work Phone: [facility] Start: 05-10-2024 End: 05-11-2024 Patient encounter procedure Amanda Soto PT Work Phone: [facility] Comment on above: Venous ulcer (HCC) ( Primary Dx); Venous (peripheral) insufficiency; Secondary lymphedema Start: 05-08-2024 End: 05-09-2024 Telephone encounter Amanda Charles PT Work Phone: [facility] Comment on above: Appointment Start: 04-30-2024 End: 04-30-2024 ambulatory Amanda Soto PT Work Phone: [facility] Start: 04-30-2024 End: 04-30-2024 Patient encounter procedure Amanda Soto PT Work Phone: [facility] Comment on above: Venous ulcer (HCC) ( Primary Dx); Venous (peripheral) insufficiency; Secondary lymphedema Start: 04-30-2024 End: 04-30-2024 ambulatory Liseth Alanis PT [facility] Comment on above: Other malaise (Prima ry Dx) Start: 04-24-2024 End: 04-24-2024 ambulatory Amanda Soto PT Work Phone: [facility] Start: 04-24-2024 End: 04-24-2024 Patient encounter procedure Amanda Soto PT Work Phone: [facility] Comment on above: Venous ulcer (HCC) ( Primary Dx); Venous (peripheral) insufficiency; Secondary lymphedema Start: 04-23-2024 End: 04-23-2024 ambulatory Liseth Luna'Carlos PT [facility] Comment on above: Other malaise (Prima ry Dx) Start: 04-23-2024 End: 04-23-2024 ambulatory KHANH RODRIGUEZ Facility:[facility] Start: 04-23-2024 End: 04-23-2024 Patient encounter procedure Gt Yin DO Work Phone: Vascular Surgery Comment on above: Venous ulcer (HCC) ( Primary Dx); Venous (peripheral) insufficiency Start: 04-16-2024 End: 04-16-2024 ambulatory Amanda Stoddarda PT Work Phone: [facility] Start: 04-16-2024 End: 04-16-2024 Patient encounter procedure Amanda Soto PT Work Phone: [facility] Comment on above: Venous ulcer (HCC) ( Primary Dx); Venous (peripheral) insufficiency; Secondary lymphedema Start: 04-16-2024 End: 04-16-2024 ambulatory Liseth Luna'Carlos PT [facility] Comment on above: Other malaise (Prima ry Dx) Start: 04-10-2024 End: 04-10-2024 ambulatory Amanda Stoddarda PT Work Phone: [facility] Start: 04-10-2024 End: 04-10-2024 Patient encounter procedure Amanda Stoddarda PT Work Phone: [facility] Comment on above: Venous ulcer (HCC) ( Primary Dx); Venous (peripheral) insufficiency; Secondary lymphedema Start: 04-04-2024 End: 04-04-2024 ambulatory Amanda Stoddarda PT Work Phone: [facility] Start: 04-04-2024 End: 04-04-2024 Patient encounter procedure Amanda oSto PT Work Phone: [facility] Comment on above: Venous ulcer (HCC) ( Primary Dx); Venous (peripheral) insufficiency; Secondary lymphedema Start: 04-03-2024 End: 04-03-2024 ambulatory KHANH RODRIGUEZ Facility:[facility] Start: 04-03-2024 End: 04-03-2024 Patient encounter procedure [facility] Work Phone: Vasculary Surgery Comment on above: Venous (peripheral) insufficiency; Symptomatic varicose veins of both lower extremities Start: 04-02-2024 End: 04-02-2024 ambulatory KHANH RODRIGUEZ Facility:[facility] Start: 04-02-2024 End: 04-02-2024 Patient encounter procedure Marisela Mccarty MD Work Phone: Orthopaedics Comment on above: S/P hip hemiarthropl asty (Primary Dx); Degenerative scoliosis Start: 04-02-2024 End: 04-02-2024 Subsequent hospital visit by physician [facility] Work Phone: Radiology Comment on above: Pain in left hip [M2 5.552] Start: 04-01-2024 End: 04-01-2024 ambulatory Liseth O'Carlos PT [facility] Comment on above: Other malaise (Prima ry Dx) Start: 03-26-2024 End: 03-26-2024 ambulatory Amanda Soto PT Work Phone: [facility] Start: 03-26-2024 End: 03-26-2024 Patient encounter procedure Amanda Soto PT Work Phone: [facility] Comment on above: Venous ulcer (HCC) ( Primary Dx); Venous (peripheral) insufficiency; Secondary lymphedema Start: 03-26-2024 End: 03-26-2024 ambulatory Liseth O'Carlos PT [facility] Comment on above: Other malaise (Prima ry Dx) Start: 03-20-2024 End: 03-20-2024 ambulatory Liseth O'Carlos PT [facility] Comment on above: Other malaise (Prima ry Dx) Start: 03-19-2024 End: 03-19-2024 ambulatory Amanda Soto PT Work Phone: [facility] Start: 03-19-2024 End: 03-19-2024 Patient encounter procedure Amanda Soto PT Work Phone: [facility] Comment on above: Venous ulcer (HCC) ( Primary Dx); Venous (peripheral) insufficiency; Secondary lymphedema Start: 03-13-2024 End: 03-14-2024 ambulatory Liseth O'Carlos PT [facility] Comment on above: Other malaise (Prima ry Dx) Start: 03-12-2024 End: 03-12-2024 ambulatory Amanda Soto PT Work Phone: [facility] Start: 03-12-2024 End: 03-12-2024 Patient encounter procedure Amanda Charles PT Work Phone: [facility] Comment on above: Venous ulcer (HCC) ( Primary Dx); Venous (peripheral) insufficiency; Secondary lymphedema Start: 02-29-2024 End: 02-29-2024 ambulatory Amanda Soto PT Work Phone: [facility] Start: 02-29-2024 End: 02-29-2024 Patient encounter procedure Amanda Soto PT Work Phone: [facility] Comment on above: Venous ulcer (HCC); Venous (peripheral) insufficiency; Secondary lymphedema Start: 02-27-2024 End: 02-27-2024 ambulatory KHANH RODRIGUEZ Facility:[facility] Start: 02-27-2024 End: 02-27-2024 Patient encounter procedure Gt Yin DO Work Phone: Vascular Surgery Comment on above: Venous ulcer (HCC) ( Primary Dx); Venous (peripheral) insufficiency; Secondary lymphedema; Symptomatic varicose veins of both lower extremities Start: 02-20-2024 End: 02-20-2024 ambulatory Liseth O'Carlos PT [facility] Comment on above: Other malaise (Prima ry Dx) Start: 02-13-2024 End: 02-13-2024 ambulatory Liseth O'Carlos PT [facility] Comment on above: Other malaise (Prima ry Dx) Start: 02-06-2024 End: 02-06-2024 ambulatory Liseth O'Carlos PT [facility] Comment on above: Other malaise (Prima ry Dx) Start: 01-30-2024 End: 01-30-2024 ambulatory Liseth O'Carlos PT [facility] Comment on above: Other malaise (Prima ry Dx) Start: 01-24-2024 End: 01-24-2024 ambulatory Liseth O'Carlos PT [facility] Comment on above: Other malaise (Prima ry Dx) Start: 01-05-2024 End: 01-05-[address] Khanh Rodriguez Work Phone: [facility] Work Phone: Start: 01-05-2024 End: 01-05-[address] Khanh Rodriguez Work Phone: [facility]-Laboratory, [place] Start: 01-05-2024 End: 01-05-[address] Khanh Rodriguez Work Phone: [facility] Work Phone: Start: 12-30-2023 End: 12-30-2023 Rosales Dickerson Work Phone: No Location Start: 12-30-2023 ambulatory Rosales Dickerson [facility] Start: 12-30-2023 Non-patient / Non-visit Dr. Sukhdev Rodriguez Work Phone: [facility] Work Phone: Start: 12-29-2023 Non-patient / Non-visit Dr. Sukhdev Rodriguez Work Phone: [facility] Start: 12-29-2023 Non-patient / Non-visit Dr. Sukhdev Rodriguez Work Phone: [facility] Work Phone: Start: 12-28-2023 Non-patient / Non-visit Dr. Sukhdev Rodriguez Work Phone: [facility] Start: 12-28-2023 Non-patient / Non-visit Dr. Sukhdev Rodriguez Work Phone: [facility] Work Phone: Start: 12-27-2023 End: 12-27-2023 [facility] Work Phone: No Location Start: 12-27-2023 Non-patient / Non-visit Dr. Sukhdev Rodriguez Work Phone: [facility] Work Phone: Start: 12-27-2023 ambulatory [facility] Start: 12-27-2023 End: 12-30-2023 Evaluation and management of inpatient Dr. Khanh Rodriguez Work Phone: [facility]-Progressive Care Unit Work Phone: Start: 11-29-2023 Non-patient / Non-visit Dr. Sukhdev Rodriguez Work Phone: [facility] Start: 11-29-2023 End: 12-03-[address] Khanh Rodriguez Work Phone: [facility] Work Phone: Start: 11-29-2023 End: 12-03-[address] Khanh Rodriguez Work Phone: [facility] Work Phone: Start: 11-22-2023 Non-patient / Non-visit Dr. Sukhdev Rodriguez Work Phone: [facility] Start: 11-16-2023 Non-patient / Non-visit Dr. Sukhdev Rodriguez Work Phone: [facility] Start: 11-15-2023 End: 11-15-[address] Khanh Rodriguez Work Phone: [facility] Work Phone: Start: 11-15-2023 End: 11-15-[address] Khanh Rodriguez Work Phone: [facility], [place] Start: 11-15-2023 End: 11-15-[address] Khanh Rodriguez Work Phone: [facility] Work Phone: Start: 11-15-2023 Non-patient / Non-visit Dr. Sukhdev Rodriguez Work Phone: [facility] Start: 11-15-[address] Nigel Rodriguez Work Phone: [facility] Work Phone: Start: 11-14-2023 End: 11-14-[address] Khanh Rodriguez Work Phone: [facility] Work Phone: Start: 11-14-2023 End: 11-14-[address] Khanh Rodriguez Work Phone: [facility]-Cardiovascul ar Services Work Phone: Start: 11-14-2023 Non-patient / Non-visit Dr. Sukhdev Rodriguez Work Phone: [facility] Start: 11-03-2023 End: 11-03-[address] Khanh Rodriguez Work Phone: [facility] Work Phone: Start: 11-03-2023 End: 11-03-[address] Khanh Rodriguez Work Phone: [facility] Work Phone: Start: 11-02-2023 Non-patient / Non-visit Dr. Sukhdev Rodriguez Work Phone: [facility] Start: 11-02-2023 End: 11-02-[address] Khanh Rodriguez Work Phone: [facility] Work Phone: Start: 11-02-2023 End: 11-02-[address] Khanh Rodriguez Work Phone: [facility] Vascular Surgery Work Phone: Start: 11-01-2023 Non-patient / Non-visit Dr. Sukhdev Rodriguez Work Phone: [facility] Start: 11-01-2023 End: 11-02-[address] Khanh Rodriguez Work Phone: [facility] Work Phone: Start: 11-01-2023 End: 11-02-[address] Khnah Rodriguez Work Phone: [facility]-Wound Healing Center Work Phone: Start: 10-26-2023 Non-patient / Non-visit Dr. Sukhdev Rodriguez Work Phone: [facility] Start: 10-26-2023 End: 10-26-2023 Admission to same day surgery center Dr. Khanh Rodriguez Work Phone: [facility]-Vice President Quality [facility]/Special Procedures Work Phone: Start: 10-26-2023 End: 10-26-[address] Khanh Rodriguez Work Phone: [facility] Work Phone: Start: 10-25-2023 Non-patient / Non-visit Dr. Sukhdev Rodriguez Work Phone: [facility] Start: 10-25-[address] Nigel Rodriguez Work Phone: [facility] Work Phone: Start: 10-20-2023 Non-patient / Non-visit Dr. Sukhdev Rodriguez Work Phone: [facility] Start: 10-20-2023 End: 10-20-[address] Khanh Rodriguez Work Phone: [facility] Work Phone: Start: 10-20-2023 End: 10-20-[address] Khanh Rodriguez [facility] Work Phone: Start: 10-18-[address] Nigel Rodriguez Work Phone: [facility] Work Phone: Start: 10-13-2023 Non-patient / Non-visit Dr. Sukhdev Rodriguez Work Phone: [facility] Start: 10-13-2023 End: 10-13-[address] Khanh Rodriguez Work Phone: [facility] Work Phone: Start: 10-13-2023 End: 10-13-[address] Khanh Rodriguez [facility] Phone[facility] Work Phone: Start: 10-11-2023 Non-patient / Non-visit Dr. Sukhdev Rodriguez Work Phone: [facility] Start: 10-04-2023 Non-patient / Non-visit Dr. Sukhdev Rodriguez Work Phone: [facility] Start: 10-04-2023 End: 10-04-[address] Khanh Rodriguez Work Phone: [facility] Work Phone: Start: 10-04-2023 End: 10-04-[address] Khanh Rodriguez Work Phone: [facility] Work Phone: Start: 09-27-2023 Non-patient / Non-visit Dr. Sukhdev Rodriguez Work Phone: [facility] Start: 09-21-2023 End: 09-21-[address] Khanh Rodriguez Work Phone: [facility] Vascular Surgery Work Phone: Start: 09-13-2023 Non-patient / Non-visit Dr. Sukhdev Rodriguez Work Phone: [facility] Start: 08-30-2023 Non-patient / Non-visit Dr. Sukhdev Rodriguez Work Phone: [facility] Start: 08-30-2023 End: 09-03-[address] Khanh Rodriguez Work Phone: [facility] Work Phone: Start: 08-23-2023 Non-patient / Non-visit Dr. Sukhdev Rodriguez Work Phone: [facility] Start: 08-16-2023 Non-patient / Non-visit Dr. Sukhdev Rodriguez Work Phone: [facility] Start: 08-02-2023 End: 08-03-[address] Khanh Rodriguez Work Phone: [facility] Work Phone: Start: 07-26-2023 Non-patient / Non-visit Dr. Sukhdev Rodriguez Work Phone: [facility] Start: 07-24-2023 End: 07-24-[address] Khanh Rodriguez Work Phone: [facility] Work Phone: Start: 07-20-2023 End: 07-20-[address] Khanh Rodriguez Work Phone: [facility] Work Phone: Start: 07-12-2023 Non-patient / Non-visit Dr. Sukhdev Rodriguez Work Phone: [facility] Start: 07-10-[address] Nigel Rodriguez Work Phone: [facility] Start: 07-10-2023 End: 07-10-[address] Khanh Rodriguez Work Phone: [facility] Work Phone: Start: 07-05-2023 Non-patient / Non-visit Dr. Sukhdev Rodriguez Work Phone: [facility] Start: 06-28-2023 Non-patient / Non-visit Dr. Sukhdev Rodriguez Work Phone: [facility] Start: 06-28-2023 End: 07-04-[address] Khanh Rodriguez Work Phone: [facility] Work Phone: Start: 06-28-2023 End: 07-04-[address] Khanh Rodriguez Work Phone: [facility] Work Phone: Start: 06-28-2023 End: 06-28-[address] Khanh Rodriguez Work Phone: [facility] Work Phone: Start: 06-21-2023 Non-patient / Non-visit Dr. Sukhdev Rodriguez Work Phone: [facility] Start: 06-21-2023 End: 06-21-[address] Khanh Rodriguez Work Phone: [facility] Work Phone: Start: 06-19-2023 End: 06-19-[address] Khanh Rodriguez Work Phone: [facility] Work Phone: Start: 06-14-2023 Non-patient / Non-visit Dr. Sukhdev Rodriguez Work Phone: [facility] Start: 06-13-2023 Non-patient / Non-visit Dr. Sukhdev Rodriguez Work Phone: [facility] Start: 06-12-2023 End: 06-12-2023 Rosales Dickerson Work Phone: No Location Start: 06-12-2023 Non-patient / Non-visit Dr. Sukhdev Rodriguez Work Phone: [facility] Start: 06-12-2023 ambulatory Rosales Espitia [facility] Start: 06-12-2023 End: 06-13-2023 Evaluation and management of inpatient Dr. Khanh Rodriguez Work Phone: [facility] Work Phone: Start: 06-08-2023 End: 06-08-2023 Non-patient / Non-visit Dr. Khanh Rodriguez Work Phone: [facility] Work Phone: Start: 06-05-2023 End: 06-05-[address] Khanh Rodriguez Work Phone: [facility] Work Phone: Start: 05-31-2023 End: 05-31-[address] Khanh Rodriguez Work Phone: [facility] Work Phone: Start: 05-31-2023 End: 05-31-[address] Khanh Rodriguez Work Phone: [facility] Work Phone: Start: 05-31-2023 Non-patient / Non-visit Dr. Sukhdev Rodriguez Work Phone: [facility] Start: 05-31-2023 End: 06-03-[address] Khanh Rodriguez Work Phone: [facility] Work Phone: Start: 05-29-2023 End: 05-29-[address] Khanh Rodriguez Work Phone: [facility]-Outpatient Pavilion Ultrasound Work Phone: Start: 05-24-[address] Nigel Rodriguez Work Phone: [facility] On[facility] Start: 05-24-2023 End: 05-24-[address] Khanh Rodriguez Work Phone: [facility] Work Phone: Start: 05-23-2023 Non-patient / Non-visit Dr. Sukhdev Rodriguez Work Phone: [facility] Medicine-[facility] Start: 05-16-2023 End: 05-16-[address] Khanh Rodriguez Work Phone: [facility] Work Phone: Start: 05-16-2023 End: 05-16-[address] Khanh Rodriguez Work Phone: [facility]-Laboratory, Specimen Work Phone: Start: 05-15-2023 End: 05-15-[address] Khanh Rodriguez Work Phone: [facility] Work Phone: Start: 05-10-2023 End: 05-10-[address] Khanh Rodriguez Work Phone: [facility] Work Phone: Start: 05-10-2023 End: 05-10-[address] Khanh Rodriguez Work Phone: [facility]-Outpatient Breast Imaging Work Phone: Start: 05-08-2023 Non-patient / Non-visit Dr. Sukhdev Rodriguez Work Phone: [facility] Start: 05-03-2023 End: 05-03-[address] Khanh Rodriguez Work Phone: [facility] Work Phone: Start: 05-03-2023 End: 05-03-[address] Khanh Rodriguez Work Phone: [facility] Start: 05-03-2023 End: 05-03-[address] Khanh Rodriguez Work Phone: [facility] Vascular Surgery Work Phone: Start: 04-26-[address] Gloria Rodriguez Work Phone: [facility] Start: 04-26-2023 End: 04-26-[address] Khanh Rodriguez Work Phone: [facility] Work Phone: Start: 04-26-2023 End: 04-26-2023 Emergency department patient visit Dr. Khanh Rodriguez Work Phone: [facility] Start: 04-26-2023 End: 04-26-[address] Khanh Rodriguez Work Phone: [facility] Work Phone: Start: 04-19-2023 Non-patient / Non-visit Dr. Sukhdev Rodriguez Work Phone: [facility] Start: 04-19-2023 End: 05-01-[address] Khanh Rodriguez Work Phone: [facility] Work Phone: Start: 04-19-2023 End: 05-01-[address] Khanh Rodriguez Work Phone: [facility] Work Phone: Start: 04-19-[address] Nigel Rodriguez Work Phone: [facility] Work Phone: Start: 03-29-2023 Non-patient / Non-visit Dr. Sukhdev Rodriguez Work Phone: [facility] Start: 03-29-2023 End: 04-03-[address] Khanh Rodriguez Work Phone: [facility] Work Phone: Start: 03-29-2023 End: 04-03-[address] Khanh Rodriguez Work Phone: [facility] Work Phone: Start: 03-22-2023 Non-patient / Non-visit Dr. Sukhdev Rodriguez Work Phone: [facility] Start: 03-15-2023 Non-patient / Non-visit Dr. Sukhdev Rodriguez Work Phone: [facility] Start: 03-01-2023 Non-patient / Non-visit Dr. Sukhdev Rodriguez Work Phone: [facility] Start: 03-01-2023 End: 03-03-[address] Khanh Rodriguez Work Phone: [facility] Work Phone: Start: 03-01-2023 End: 03-03-[address] Khanh Rodriguez Work Phone: [facility] Work Phone: Start: 02-22-2023 Non-patient / Non-visit Dr. Sukhdev Rodriguez Work Phone: [facility] Start: 02-15-2023 Non-patient / Non-visit Dr. Sukhdev Rodriguez Work Phone: [facility] Start: 02-08-2023 End: 02-08-[address] Khanh Rodriguez Work Phone: [facility]-Radiology, [facility] Work Phone: Start: 02-08-2023 Non-patient / Non-visit Dr. Sukhdev Rodriguez [facility] Phone[facility] Start: 02-01-2023 Non-patient / Non-visit Dr. Sukhdev Rodriguez Work Phone: [facility] Start: 02-01-2023 End: 02-01-[address] Khanh Rodriguez Work Phone: [facility] Work Phone: Start: 02-01-2023 End: 02-01-[address] Khanh Rodriguez Work Phone: [facility] Start: 01-25-2023 Non-patient / Non-visit Dr. Sukhdev Rodriguez Work Phone: [facility] Start: 01-20-2023 End: 01-20-[address] Khanh Rodriguez Work Phone: [facility] Work Phone: Start: 01-20-2023 End: 01-20-[address] Khanh Rodriguez Work Phone: [facility] Internal Medicine Start: 10-18-2022 Orders Only Yoseph macias MD Work Phone: Orthopaedics Comment on above: Pain (Primary Dx) Start: 05-31-2022 End: 05-31-2022 ambulatory No Primary Care Physician [facility] Work Phone: Start: 05-31-2022 End: 05-31-2022 Patient encounter procedure No Primary Care Physician [facility] Start: 04-28-2022 End: 04-28-2022 ambulatory No Primary Care Physician [facility] Work Phone: Start: 04-28-2022 End: 04-28-2022 Discharged Recurring No Primary Care Physician [facility]-Physical Therapy Start: 04-28-2022 Registered Recurring No Primar y Care Physician [facility]Physical Therapy Start: 04-13-2022 Registered Recurring No Primar y Care Physician [facility]Physical Therapy Start: 04-11-2022 End: 04-11-2022 Patient encounter procedure No Primary Care Physician [facility] Start: 04-06-2022 End: 04-06-2022 Discharged Recurring No Primary Care Physician [facility] Start: 04-06-2022 Registered Recurring No Primar y Care Physician [facility] Start: 03-31-2022 End: 03-31-2022 Patient encounter procedure No Primary Care Physician [facility] Bone Densitometry Start: 03-25-2022 End: 03-25-2022 Patient encounter procedure No Primary Care Physician [facility] Start: 02-16-2022 End: 02-16-2022 Patient encounter procedure [facility], Specimen Start: 10-26-2021 End: 10-26-2021 Juve Dickerson Work Phone: [facility] Start: 07-05-2021 End: 07-05-2021 Rosales Dickerson Work Phone: [facility] Start: 05-11-2021 End: 05-11-2021 Office outpatient visit 15 minutes Ihsan Franks Work Phone: [facility] Start: 04-15-2021 End: 04-15-2021 Office outpatient visit 15 minutes Charlotte Avery Work Phone: [facility] Start: 01-29-2021 End: 01-29-2021 Rosales Dickerson Work Phone: [facility] Start: 01-04-2021 End: 01-04-2021 Rosales Dickerson Work Phone: [facility] Start: 05-28-2020 End: 05-28-2020 Encounter for general adult medical examination without abnormal findings Delores Faria Work Phone: [facility], [facility] Start: 05-28-2020 End: 05-28-2020 Office outpatient visit 15 minutes Delores Faria Work Phone: [facility] Start: 02-03-2020 End: 02-03-2020 Subsequent hospital visit by physician Dipak Newby Work Phone: [facility] Comment on above: Arrived Start: 01-20-2020 End: 01-20-2020 Subsequent hospital visit by physician Dipak Newby Work Phone: [facility] Comment on above: Arrived Start: 01-14-2020 End: 01-14-2020 Subsequent hospital visit by physician Dipak Newby Work Phone: [facility] [place] Comment on above: Arrived Start: 01-13-2020 End: 01-13-2020 Delores Faria Work Phone: [facility] Start: 01-13-2020 End: 01-13-2020 Office outpatient visit 25 minutes Delores Faria Work Phone: [facility] Start: 01-07-2020 End: 01-07-2020 Subsequent hospital visit by physician Dipak Newby Work Phone: [facility] Comment on above: Arrived Start: 12-23-2019 End: 12-23-2019 Subsequent hospital visit by physician Dipak Newby Work Phone: [facility] Start: 12-23-2019 End: 12-23-2019 Subsequent hospital visit by physician Dipak Newby Work Phone: [facility] Comment on above: Arrived Start: 06-24-2019 End: 06-24-2019 Abdirahman Conley Work Phone: No Location Start: 05-29-2019 End: 05-29-2019 Abdirahman Conley Work Phone: [facility] Start: 05-27-2019 End: 05-27-2019 Encounter for general adult medical examination without abnormal findings Abdirahman Conley Work Phone: [facility] [employer], [facility] Start: 05-27-2019 End: 05-27-2019 Office outpatient visit 25 minutes Abdirahman Conley Work Phone: [facility] Start: 05-17-2019 End: 05-17-2019 Delores Faria Work Phone: [facility] Start: 01-29-2019 End: 01-29-2019 Office outpatient visit 25 minutes Abdirahman Jarvis Work Phone: [facility] Start: 06-11-2018 End: 06-11-2018 Gregorio Rodrigues Work Phone: [facility] Start: 05-23-2018 End: 05-23-2018 Encounter for general adult medical examination without abnormal findings Abdirahman Jarvis Work Phone: [email or web address] Work Phone: Start: 05-23-2018 End: 05-23-2018 Office outpatient visit 15 minutes Abdirahman Jarvis Work Phone: [facility] Start: 04-10-2018 End: 04-10-2018 Office outpatient new 30 minutes Abdirahman Hollenberg Work Phone: [facility] [place] Start: 08-16-2017 End: 08-16-2017 Ambulatory [facility] Encounter for genera l adult medical examination without abnormal findings Juve Dickerson MD [facility], [facility] Procedures Date Procedure Procedure Detail Performing Clinician Start: 05-30-2025 Echocardiography NAYAN BLACKMON Start: 05-13-2025 MRI of lumbar spine Dr. Khanh Rodriguez MD Work Phone: Start: 05-08-2025 X-ray of lumbosacral spine Dr. Khanh Rodriguez MD Work Phone: Start: 01-28-2025 Cul bact xcpt urine blood/stool aerobic isol Gtjoseluis Yin DO Work Phone: Start: 01-23-[address] Nigel Rodriguez MD Work Phone: Start: 06-17-2024 Measurement of renal function Dr. Tasneem Rodriguez MD Work Phone: Comment on above: GFR Calc Start: 04-03-2024 Dup-scan xtr veins complete bilateral study Gt Yin DO Work Phone: Start: 04-02-2024 Radex hip unilateral with pelvis 2-3 views Abdirahman Wright APRN.CNP Work Phone: Start: 12-28-[address] Khanh Rodriguez Work Phone: Start: 12-28-[address] Khanh Rodriguez Work Phone: Start: 12-27-2023 Measurement of occult blood in stool specimen using immunoassay Dr. Khanh Rodriguez Work Phone: Start: 12-27-2023 Computed tomography of abdomen and pelvis with intravenous contrast Dr. Khanh Rodriguez Work Phone: Start: 08-16-[address] Cecelia Rodriguez Work Phone: Start: 08-16-2023 Investigation of transfusion reaction Dr. Khanh Rodriguez Work Phone: Start: 08-16-2023 Microbial culture, routine Dr. Khanh Rodriguez Work Phone: Start: 06-12-2023 Radionuclide sentinel lymph node study Dr. Khanh Rodriguez Work Phone: Start: 06-08-2023 Plain chest X-ray Dr. Khanh Rodriguez Work Phone: Start: 05-31-2023 CT of chest and abdomen Dr. Khanh Rodriguez Work Phone: Start: 05-29-2023 Radionuclide whole body bone study Dr. Gloria Rodriguez Work Phone: Start: 05-29-[address] Khanh Rodriguez Work Phone: Start: 05-23-[address] Cecelia Rodriguez Work Phone: Start: 05-23-2023 Investigation of transfusion reaction Dr. Khanh Rodriguez Work Phone: Start: 05-23-2023 Microbial culture, routine Dr. Khanh Rodriguez Work Phone: Start: 05-10-[address] Khanh Rodriguez Work Phone: Start: 05-10-[address] Khanh Rodriguez Work Phone: Start: 02-23-[address] Cecelia Rodriguez Work Phone: Start: 02-23-2023 Investigation of transfusion reaction Dr. Khanh Rodriguez Work Phone: Start: 02-23-2023 Microbial culture, routine Dr. Khanh Rodriguez Work Phone: Start: 02-08-2023 Plain x-ray for bone length measurement Dr. Khanh Rodriguez Work Phone: Start: 01-25-[address] Cecelia Rodriguez Work Phone: Start: 01-25-2023 Investigation of transfusion reaction Dr. Khanh Rodriguez Work Phone: Start: 01-25-2023 Microbial culture, routine Dr. Khanh Rodriguez Work Phone: Start: 03-31-2022 Dual energy X-ray absorptiometry No Prim [facility] Physician Start: 05-11-2021 End: 05-11-2021 BP scrn perf rec interval Juve Dickerson MD Start: 05-11-2021 End: 05-11-2021 Calc BMI norm parameters Juve Dickerson MD Start: 05-11-2021 End: 05-11-2021 Docrev cur meds by elig clin Juve Dickerson MD Start: 04-15-2021 End: 04-15-2021 BP [...] 05-28-2020 Fall Risk Screening With Falls Juve alas MD Start: 05-28-2020 End: 05-28-2020 Fall Screening [...] 05-28-2020 End: 05-28-2020 Tobacco Screening, Non-smoker Juve arvizu MD Start: 02-03-2020 [facility] PROGRESS NOTE Dipak bravo Work Phone: Start: 01-20-2020 [facility] PROGRESS NOTE Dipak bravo Work Phone: Start: 01-14-2020 [facility] TREATMENT NOTE Dipak Grier [employer] Work Phone: Start: 01-13-2020 End: 01-13-2020 Collection venous blood venipuncture Juve Dickerson MD Start: 01-13-2020 End: 01-13-2020 LDL For DM <100mg/dl Juve Dickerson MD Start: 01-13-2020 End: 01-13-2020 Lipid panel Juve Dickerson MD Start: 01-13-2020 End: 01-13-2020 Lipoprotein direct measurement ldl cholesterol Juve Dickerson MD Start: 01-07-2020 [facility] PROGRESS NOTE Dipak bravo Work Phone: Start: 12-23-2019 [facility] PROGRESS NOTE Dipak bravo Work Phone: Start: 12-23-2019 W[facility] CENTER TREATMENT NOTE Dipak Grier [employer] Work Phone: Start: 05-27-2019 End: 05-27-2019 BP scrn perf rec interval Juve Dickerson MD Start: 05-27-2019 End: 05-27-2019 Calc BMI norm parameters Juve Dickerson MD Start: 05-27-2019 End: 05-27-2019 Depression screen annual Juve Dickerson MD Start: 05-27-2019 End: 05-27-2019 Docrev cur meds by cuong clin Juve Dickerson MD Start: 05-27-2019 End: 05-27-2019 EKG for initial prevent exam Juve Dickerson MD Start: 05-27-2019 End: 05-27-2019 Fall Risk Screening, No Falls Juve arvizu MD Start: 05-27-2019 End: 05-27-2019 Fall Screening [...] 05-27-2019 End: 05-27-2019 Tobacco Screening, Non-smoker Juve arvizu MD Start: 05-23-2018 End: 05-23-2018 Assay of [...] 05-23-2018 Fall Risk Screening, No Falls Juve arvizu MD Start: 05-23-2018 End: 05-23-2018 Fall Screening Juve Dickerson MD Start: 05-23-2018 End: 05-23-2018 Mammography Juve Dickerson MD Start: 05-23-2018 End: 05-23-2018 PPPS, initial visit Juve Dickerson MD Start: 05-23-2018 End: 05-23-2018 Scr dep neg, no plan reqd Juve Dickerson MD Start: 05-23-2018 End: 05-23-2018 Tobacco Screening, Non-smoker Juve arvizu MD Start: 04-10-2018 End: 04-10-2018 Assay of magnesium Juve Dickerson MD Start: 04-10-2018 End: 04-10-2018 Collection venous blood venipuncture Juve Dickerson MD Start: 05-05-2011 Mammography Yoseph Briones MD Work Phone: Start: 04-29-2011 Lipid 1996 panel - Serum or Plasma Beatriz yohana Luna'Carlos PT Start: 09-15-2008 Colonoscopy Yoseph Briones MD Work Phone: Anaerobic microbial culture Anaerobic microbial culture Dr. Khanh Rodriguez Work Phone: Investigation of tra nsfusion reaction Microbial culture, routine Microbial culture, routine D matt Rodriguez Work Phone: Plan of Treatment Date Care Activity Detail Author Start: 04-25-2031 Urine microalbumin profile DTa P,Tdap,Td Vaccine (2 - Td or Tdap) [facility] Start: 06-04-2025 End: 06-04-2025 Patient encounter procedure 06/04/2025 3:00 PM EDT Office Visit Vascular Surgery [address] [id number] Gt Yin, DO [address] [place] [address] Venous ulcer [I83.009, L97.909] [facility] Surgery Comment on above: Venous ulcer [I83.00 9, L97.909] Start: 06-03-2025 End: 06-03-2025 ambulatory 06/03/2025 1:30 PM EDT OT/PT/Speech Visit [facility] [address] [place] [address] Darrius Newton, PT [address] [place] [address] Spinal stenosis of lumbar region with neurogenic claudication [M48.062] [facility] Comment on above: Spinal stenosis of l umbar region with neurogenic claudication [M48.062] Start: 06-03-2025 End: 06-03-2025 Patient encounter procedure 06/03/2025 10:30 AM EDT OT/PT/Speech Visit [facility] [address], [place] [id number] Amanda Soto, PT [address], [place] [id number] Venous ulcer [I83.009, L97.909] [facility] Comment on above: Venous ulcer [I83.00 9, L97.909] Start: 05-27-2025 End: 05-27-2025 Patient encounter procedure 05/27/2025 2:50 PM EDT Office Visit Plastic Surgery [address] [place] [address] Nayan Blackmon MD [address] [address] f/u drainage of venous ulcer-Amanda Soto referring Plastic Surgery Comment on above: f/u drainage of veno us ulcer-Amanda Soto referring Start: 05-27-2025 End: 05-27-2025 Patient encounter procedure 05/27/2025 10:30 AM EDT OT/PT/Speech Visit [facility] [address] [place] [address] Amanda Soto, PT [address] [place] [address] Venous ulcer [I83.009, L97.909] [facility] Comment on above: Venous ulcer [I83.00 9, L97.909] Start: 05-21-2025 Thyroid stimulating hormone measurement [facility] Start: 05-20-2025 End: 05-20-2025 Patient encounter procedure 05/20/2025 10:30 AM EDT OT/PT/Speech Visit [facility] [address] [place] [address] Amanda Soto, PT [address] [place] [address] Venous ulcer [I83.009, L97.909] [facility] Comment on above: Venous ulcer [I83.00 9, L97.909] Start: 05-13-2025 End: 05-13-2025 Patient encounter procedure 05/13/2025 10:30 AM EDT OT/PT/Speech Visit [facility] [address] [place] [address] Amanda Soto, PT [address] [place] [address] Venous ulcer [I83.009, L97.909] [facility] Comment on above: Venous ulcer [I83.00 9, L97.909] Start: 05-08-2025 X-ray of lumbosacral spine L/S Spine Min 4 Views [facility] Start: 05-08-2025 XR Spine Lumbar and Sacrum GE 4 Views [facility] Start: 05-06-2025 End: 05-06-2025 Patient encounter procedure 05/06/2025 10:30 AM EDT OT/PT/Speech Visit [facility] [address] [place] [address] Amanda Soto, PT [address] [place] [address] Venous ulcer [I83.009, L97.909] [facility] Comment on above: Venous ulcer [I83.00 9, L97.909] Start: 05-05-2025 Influenza vaccination [facility] Start: 04-29-2025 Prothrombin time [facility] Start: 04-29-2025 [facility] Start: 04-29-2025 End: 04-29-2025 Patient encounter procedure 04/29/2025 10:30 AM EDT OT/PT/Speech Visit [facility] [address] [place] [address] Amanda Soto, PT [address] [place] [address] Venous ulcer [I83.009, L97.909] [facility] Comment on above: Venous ulcer [I83.00 9, L97.909] Start: 04-28-2025 End: 04-28-2025 Patient encounter procedure 04/28/2025 9:30 AM EDT OT/PT/Speech Visit [facility] [address] [place] [address] Amanda Soto, PT [address] [place] [address] Venous ulcer [I83.009, L97.909] [facility] Comment on above: Venous ulcer [I83.00 9, L97.909] Start: 04-22-2025 End: 04-22-2025 Patient encounter procedure 04/22/2025 10:30 AM EDT OT/PT/Speech Visit [facility] [address] [place] [address] Amanda Soto, PT [address] [place] [address] Venous ulcer [I83.009, L97.909] [facility] Comment on above: Venous ulcer [I83.00 9, L97.909] Start: 04-15-2025 End: 04-15-2025 Patient encounter procedure 04/15/2025 10:30 AM EDT OT/PT/Speech Visit [facility] [address] [place] [address] Amanda Soto, PT [address] [place] [address] Venous ulcer [I83.009, L97.909] [facility] Comment on above: Venous ulcer [I83.00 9, L97.909] Start: 04-08-2025 End: 04-08-2025 Patient encounter procedure Plastic Surgery Comment on above: Right Lower Lateral leg Venous ulcer [I83.00 9, L97.909] Start: 04-01-2025 End: 04-01-2025 Patient encounter procedure 04/01/2025 10:30 AM EDT OT/PT/Speech Visit [facility] [address] [place] [address] Amanda Soto, PT [address] [place] [address] Venous ulcer [I83.009, L97.909] [facility] Comment on above: Venous ulcer [I83.00 9, L97.909] Start: 03-25-2025 End: 03-25-2025 Patient encounter procedure 03/25/2025 10:30 AM EDT OT/PT/Speech Visit [facility] [address] [place] [address] Amanda Soto, PT [address] [place] [address] Venous ulcer [I83.009, L97.909] [facility] Comment on above: Venous ulcer [I83.00 9, L97.909] Start: 03-18-2025 End: 03-18-2025 Patient encounter procedure Plastic Surgery Comment on above: Right Lower Lateral leg Venous ulcer [I83.00 9, L97.909] Start: 03-18-2025 End: 03-18-2025 Patient encounter procedure 03/18/2025 10:30 AM EDT OT/PT/Speech Visit [facility] [address] [place] [address] Amanda Soto, PT [address] [place] [address] Venous ulcer [I83.009, L97.909] [facility] Comment on above: Venous ulcer [I83.00 9, L97.909] Start: 03-11-2025 End: 03-11-2025 Patient encounter procedure 03/11/2025 10:30 AM EDT OT/PT/Speech Visit [facility] [address] [place] [address] Amanda Soto, PT [address] [place] [address] Venous ulcer [I83.009, L97.909] [facility] Comment on above: Venous ulcer [I83.00 9, L97.909] Start: 03-03-2025 End: 03-03-2025 Patient encounter procedure 03/03/2025 3:30 PM EDT OT/PT/Speech Visit [facility] [address] [place] [address] Amanda Soto, PT [address] [place] [address] Venous ulcer [I83.009, L97.909] [facility] Comment on above: Venous ulcer [I83.00 9, L97.909] Start: 03-03-2025 End: 03-03-2025 Patient encounter procedure 03/03/2025 9:30 AM EDT OT/PT/Speech Visit [facility] [address] [place] [address] Amanda Soto, PT [address] [place] [address] Venous ulcer [I83.009, L97.909] [facility] Comment on above: Venous ulcer [I83.00 9, L97.909] Start: 02-25-2025 End: 02-25-2025 Patient encounter procedure Plastic Surgery Comment on above: Right Lower Lateral leg Patient confirmed- Start: 02-24-2025 End: 02-24-2025 Patient encounter procedure 02/24/2025 3:30 PM EDT OT/PT/Speech Visit [facility] [address] [place] [address] Amanda Soto, PT [address] [place] [address] Venous ulcer [I83.009, L97.909] [facility] Comment on above: Venous ulcer [I83.00 9, L97.909] Start: 02-18-2025 End: 02-18-2025 Admission to same day surgery center 02/18/2025 1:00 PM EDT - 02/18/2025 2:00 PM EDT Surgery [facility] [address] [place] [address] [place] [address], [address] [address] INSERT PICC W/O PORT OR PUMP ADULT W/O IMAGING GUIDANCE [facility] Comment on above: INSERT PICC W/O PORT OR PUMP ADULT W/O IMAGING GUIDANCE Start: 02-18-2025 End: 02-18-2025 Insertion picc w/o img gdn 5 yr/> INSERT PICC W/O PORT OR PUMP ADULT W/O IMAGING GUIDANCE Infection 02/18/2025 1:00 PM EDT [facility] Start: 02-18-2025 Subsequent hospital visit by physician 02/18/2025 1:00 PM EDT Hospital Encounter [facility] [address] [place] [address] [place] [address], [address] [address] Infection [B99.9] [facility] Comment on above: Infection [B99.9] Start: 02-17-2025 End: 02-17-2025 Patient encounter procedure 02/17/2025 3:30 PM EDT OT/PT/Speech Visit [facility] [address] [place] [address] Amanda Soto, PT [address] [place] [address] Venous ulcer [I83.009, L97.909] [facility] Comment on above: Venous ulcer [I83.00 9, L97.909] Start: 02-11-2025 End: 02-11-2025 Patient encounter procedure Plastic Surgery Comment on above: Patient confirmed- new to us abnormal w ound cultures- Dr. Yin referring Start: 02-10-2025 End: 02-10-2025 Patient encounter procedure 02/10/2025 3:30 PM EDT OT/PT/Speech Visit [facility] [address] [place] [address] Amanda Soto, PT [address], [place] [id number] Venous ulcer [I83.009, L97.909] [facility] Comment on above: Venous ulcer [I83.00 9, L97.909] Start: 02-10-2025 End: 02-10-2025 Patient encounter procedure 02/10/2025 10:30 AM EDT OT/PT/Speech Visit [facility] [address] [place] [address] Amanda Soto, PT [address] [place] [address] Venous ulcer [I83.009, L97.909] [facility] Comment on above: Venous ulcer [I83.00 9, L97.909] Start: 02-03-2025 End: 02-03-2025 Patient encounter procedure 02/03/2025 3:30 PM EDT OT/PT/Speech Visit [facility] [address] [place] [address] Amanda Soto, PT [address] [place] [address] Venous ulcer [I83.009, L97.909] [facility] Comment on above: Venous ulcer [I83.00 9, L97.909] Start: 01-22-2025 Patient referral [facility] Work Phone: Start: 01-20-2025 End: 01-20-2025 Patient encounter procedure 01/20/2025 9:30 AM EDT OT/PT/Speech Visit [facility] [address] [place] [address] Amanda Soto, PT [address] [place] [address] Venous ulcer [I83.009, L97.909] [facility] Comment on above: Venous ulcer [I83.00 9, L97.909] Start: 01-13-2025 End: 01-13-2025 Patient encounter procedure 01/13/2025 9:30 AM EDT OT/PT/Speech Visit [facility] [address] [place] [address] Amanda Soto, PT [address] [place] [address] Venous ulcer [I83.009, L97.909] [facility] Comment on above: Venous ulcer [I83.00 9, L97.909] Start: 12-26-2024 Diabetes Screening Diabetes Screenin g [facility] Start: 09-04-2024 Advance Directive Discussion Advance Directive Discussion [facility] Start: 06-26-2024 End: 06-26-2024 Patient encounter procedure 06/26/2024 2:30 PM EDT OT/PT/Speech Visit [facility] [address] [place] [address] Amanda Soto, PT [address] [place] [address] Venous ulcer [I83.009, L97.909] [facility] Comment on above: Venous ulcer [I83.00 9, L97.909] Start: 06-25-2024 End: 06-25-2024 Patient encounter procedure 06/25/2024 9:30 AM EDT OT/PT/Speech Visit [facility] [address] [place] [address] Amanda Soto, PT [address] [place] [address] Venous ulcer [I83.009, L97.909] [facility] Comment on above: Venous ulcer [I83.00 9, L97.909] Start: 06-18-2024 End: 06-18-2024 Patient encounter procedure 06/18/2024 8:30 AM EDT OT/PT/Speech Visit [facility] [address] [place] [address] Amanda Soto, PT [address] [place] [address] Venous ulcer [I83.009, L93.909] [facility] Comment on above: Venous ulcer [I83.00 9, L97.909] Start: 06-12-2024 End: 06-12-2024 Patient encounter procedure 06/12/2024 1:30 PM EDT OT/PT/Speech Visit [facility] [address] [place] [address] Amanda Soto, PT [address] [place] [address] Venous ulcer [I83.009, L93.909] [facility] Comment on above: Venous ulcer [I83.00 9, W64.904] Start: 06-12-2024 End: 06-12-2024 Patient encounter procedure 06/12/2024 10:20 AM EDT Office Visit [facility] [address] [address] Monse Merlos PABruno [address] [place] [address] Degenerative scoliosis [M41.50] [facility] Comment on above: Degenerative scolios is [M41.50] Start: 06-04-2024 End: 06-04-2024 Patient encounter procedure 06/04/2024 9:30 AM EDT OT/PT/Speech Visit [facility] [address] [place] [address] Amanda Soto, PT [address] [place] [address] Venous ulcer [I83.009, L97.909] [facility] Comment on above: Venous ulcer [I83.00 9, L91.909] Start: 05-28-2024 End: 05-28-2024 Patient encounter procedure 05/28/2024 9:30 AM EDT OT/PT/Speech Visit [facility] [address] [place] [address] Amanda Soto, PT [address] [place] [address] Venous ulcer [I83.009, L97.909] [facility] Comment on above: Venous ulcer [I83.00 9, L97.909] Start: 05-21-2024 End: 05-21-2024 Patient encounter procedure 05/21/2024 9:30 AM EDT OT/PT/Speech Visit [facility] [address] [place] [address] Amanda Soto, PT [address] [place] [address] Venous ulcer [I83.009, L97.909] [facility] Comment on above: Venous ulcer [I83.00 9, L97.909] Start: 05-15-2024 End: 05-15-2024 Patient encounter procedure 05/15/2024 10:20 AM EDT Office Visit [facility] [address] [address] Monse Merlos PA-C [address] [place] [address] Degenerative scoliosis [M41.50] [facility] Comment on above: Degenerative scolios is [M41.50] Start: 05-14-2024 End: 05-14-2024 Patient encounter procedure 05/14/2024 9:30 AM EDT OT/PT/Speech Visit [facility] [address] [place] [address] Amanda Soto, PT [address] [place] [address] Venous ulcer [I83.009, L97.909] [facility] Comment on above: Venous ulcer [I83.00 9, L97.909] Start: 05-10-2024 End: 05-10-2024 Patient encounter procedure 05/10/2024 12:30 PM EDT OT/PT/Speech Visit [facility] [address] [place] [address] Amanda Soto, PT [address] [place] [address] Venous ulcer [I83.009, L97.909] [facility] Comment on above: Venous ulcer [I83.00 9, L97.909] Start: 05-08-2024 End: 05-08-2024 Patient encounter procedure 05/08/2024 9:30 AM EDT OT/PT/Speech Visit [facility] [address] [place] [address] Amanda Soto, PT [address] [place] [address] Venous ulcer [I83.009, L97.909] [facility] Comment on above: Venous ulcer [I83.00 9, L97.909] Start: 05-05-2024 Covid-19 Vaccine ( season) Covid-19 Vaccine () [facility] Start: 05-05-2024 Covid-19 Vaccine ( season) Covid-19 Vaccine ( season) [facility] Start: 05-05-2024 Covid-19 Vaccine () Covid-19 Vaccine () [facility] Start: 05-05-2024 Influenza vaccination C [facility] Start: 04-30-2024 End: 04-30-2024 Patient encounter procedure [facility] Comment on above: *use referral [id number]* Venous ulcer [I83.00 9, L97.909] Start: 04-30-2024 End: 04-30-2024 ambulatory 04/30/2024 8:15 AM EDT OT/PT/Speech Visit [facility] [address] [place] [address] Liseth Alanis, PT Other malaise [R53.81] [facility] Comment on above: Other malaise [R53.8 1] Start: 04-24-2024 End: 04-24-2024 Patient encounter procedure 04/24/2024 9:30 AM EDT OT/PT/Speech Visit [facility] [address] [place] [address] Amanda Soto, PT [address] [place] [address] Venous ulcer [I83.009, B02.906] [facility] Comment on above: Venous ulcer [I83.00 9, M50.498] Start: 04-23-2024 End: 04-23-2024 ambulatory 04/23/2024 2:15 PM EDT OT/PT/Speech Visit [facility] [address] [place] [address] Liseth Alanis, PT Other malaise [R53.81]/Back Pain [facility] Comment on above: Other malaise [R53.8 1]/Back Pain Start: 04-23-2024 End: 04-23-2024 Patient encounter procedure 04/23/2024 10:30 AM EDT Office Visit [facility] [address] [facility] [place] [address] Gt Yin, DO [address] [place] [address] Venous (peripheral) insufficiency [I87.2]; Symptomatic varicose veins of both lower extremities [I83.893] [facility] Comment on above: Venous (peripheral) insufficiency [I87.2]; Symptomatic varicose veins of both lower extremities [I83.893] Start: 04-22-2024 End: 04-22-2024 Patient encounter procedure [facility] Comment on above: *use referral [id number]* Venous ulcer [I83.00 9, W77.909] Start: 04-16-2024 End: 04-16-2024 Patient encounter procedure [facility] Comment on above: *use referral [id number]* Venous ulcer [I83.00 9, L97.909] Start: 04-16-2024 End: 04-16-2024 ambulatory 04/16/2024 10:30 AM EDT OT/PT/Speech Visit [facility] [address] [place] [address] Liseth Alanis, PT [facility] Comment on above: Back Pain Start: 04-10-2024 End: 04-10-2024 Patient encounter procedure 04/10/2024 11:30 AM EDT OT/PT/Speech Visit [facility] [address] [place] [address] Amanda Soto, PT [address] [place] [address] *use referral [id number]* [facility] Comment on above: *use referral [id number]* Start: 04-04-2024 End: 04-04-2024 Patient encounter procedure 04/04/2024 2:30 PM EDT OT/PT/Speech Visit [facility] [address] [place] [address] Amanda Soto, PT [address] [place] [address] *use referral [id number]* [facility] Comment on above: *use referral [id number]* Start: 04-03-2024 End: 04-03-2024 Patient encounter procedure 04/03/2024 2:30 PM EDT Office Visit Vasculary Surgery [address] [place] [address] Venous (peripheral) insufficiency [I87.2]; Symptomatic varicose veins of both lower extremities [I83.893] [facility] Comment on above: Venous (peripheral) insufficiency [I87.2]; Symptomatic varicose veins of both lower extremities [I83.893] Start: 04-02-2024 End: 04-02-2024 Patient encounter procedure Radiology Comment on above: hip pain L hip pain Start: 04-02-2024 End: 04-02-2024 Patient encounter procedure [facility] Comment on above: *use referral [id number]* Venous ulcer (HCC) [I83.009, L97.909] Venous (peripheral) insufficiency [I87.2] 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] lt hip replacement *use referral [id number]* Start: 03-26-2024 End: 03-26-2024 Patient encounter procedure [facility] Comment on above: *use referral [id number]* Venous ulcer (HCC) [I83.009, L97.909] Venous (peripheral) insufficiency [I87.2] 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] *use referral [id number]* Start: 03-26-2024 End: 03-26-2024 ambulatory 03/26/2024 11:15 AM EDT OT/PT/Speech Visit [facility] [address] [place] [address] Liseth Alanis, PT Dx: Other malaise [R53.81 (ICD-10-CM)] [facility] Comment on above: Dx: Other malaise [R 53.81 (ICD-10-CM)] Start: 03-20-2024 End: 03-20-2024 ambulatory 03/20/2024 12:00 PM EDT OT/PT/Speech Visit [facility] [address] [place] [address] Liseth Alanis, PT Dx: Other malaise [R53.81 (ICD-10-CM)] [facility] Comment on above: Dx: Other malaise [R 53.81 (ICD-10-CM)] Start: 03-19-2024 End: 03-19-2024 Patient encounter procedure [facility] Comment on above: *use referral [id number]* Venous ulcer (HCC) [I83.009, L97.909] Venous (peripheral) insufficiency [I87.2] 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] *use referral [id number]* Start: 03-13-2024 End: 03-13-2024 ambulatory 03/13/2024 12:45 PM EDT OT/PT/Speech Visit [facility] [address] [place] [address] O'Liseth Gonzalez, PT Dx: Other malaise [R53.81 (ICD-10-CM)] [facility] Comment on above: Dx: Other malaise [R 53.81 (ICD-10-CM)] Start: 02-27-2024 End: 02-27-2024 ambulatory 02/27/2024 5:15 PM EDT OT/PT/Speech Visit [facility] [address] [place] [address] O'Liseth Gonzalez, PT Dx: Other malaise [R53.81 (ICD-10-CM)] [facility] Comment on above: Dx: Other malaise [R 53.81 (ICD-10-CM)] Start: 02-27-2024 End: 02-27-2024 Patient encounter procedure 02/27/2024 8:30 AM EDT Office Visit Vascular Surgery [address] [place] [address] Gt Yin, DO [address] [place] [address] WALTER Galaviz [facility] (patient to have medical records transferred) Vascular Surgery Comment on above: WALTER perez [facility] (patient to have medical records transferred) Start: 02-20-2024 End: 02-20-2024 ambulatory 02/20/2024 10:30 AM EDT OT/PT/Speech Visit [facility] [address] [place] [address] O'Liseth Gonzalez, PT Other malaise [R53.81 (ICD-10-CM)] [facility] Comment on above: Other malaise [R53.8 1 (ICD-10-CM)] Start: 02-13-2024 End: 02-13-2024 ambulatory 02/13/2024 10:30 AM EDT OT/PT/Speech Visit [facility] [address] [place] [address] O'Liseth Gonzalez, PT Other malaise [R53.81 (ICD-10-CM)] [facility] Comment on above: Other malaise [R53.8 1 (ICD-10-CM)] Start: 02-06-2024 End: 02-06-2024 ambulatory 02/06/2024 8:15 AM EDT OT/PT/Speech Visit [facility] [address] [place] [address] O'Liseth Gonzalez, PT Other malaise [R53.81 (ICD-10-CM)] [facility] Comment on above: Other malaise [R53.8 1 (ICD-10-CM)] Start: 01-05-2024 Patient referral [facility] Work Phone: Start: 01-05-2024 Procedure [facility] Start: 12-30-2023 Referral to service [facility] Start: 12-30-2023 Patient discharge [facility] Start: 12-28-2023 Following clinical p athway protocol [facility] Start: 12-28-2023 [facility] Start: 12-28-2023 Wound care [facility] Start: 12-28-2023 Leukocyte reduced re d blood cells [facility] Start: 12-28-2023 [facility] Start: 12-28-2023 Administration of bl ood product [facility] Start: 12-27-2023 End: 12-28-2023 [facility] Start: 12-27-2023 Consultation for treatment [facility] Start: 12-27-2023 Following clinical p athway protocol [facility] Start: 12-27-2023 Ambulation without limitation [facility] Start: 12-27-2023 Assessment of risk o f venous thromboembolism [facility] Start: 12-27-2023 Insertion of cathete r into peripheral vein [facility] Start: 12-27-2023 Measuring intake and output [facility] Start: 12-27-2023 Providing care accor ding to standard [facility] Start: 12-27-2023 Referral to gastroenterology service [facility] Start: 12-27-2023 Referral to occupati onal therapist [facility] Start: 12-27-2023 Referral to service [facility] Start: 12-27-2023 Verification routine [facility] Start: 12-27-2023 Hospital admission, emergency, from emergency room, medical nature [facility] Start: 12-27-2023 Admission procedure [facility] Start: 12-27-2023 [facility] Start: 11-16-2023 Patient referral [facility] Work Phone: Start: 11-15-2023 Thiamine measurement [facility] Start: 10-26-2023 Patient discharge [facility] Start: 09-04-2023 Advance Directive Discussion Advance Directive Discussion [facility] Start: 09-04-2023 Behavioral Health Screening Behavioral Health Screening [facility] Start: 07-10-2023 Patient referral [facility] Work Phone: Start: 06-13-2023 Patient discharge [facility] Start: 06-12-2023 End: 06-12-2023 Referral to service [facility] Start: 06-12-2023 Anesthesia radical/modified radical breast ANESTH SURGERY OF BREAST [facility] Start: 06-12-2023 Mast modf rad w/ax l ymph nod w/wo pect/aleks min MAST MOD RAD [facility] Start: 06-12-2023 Catheterization of vein [facility] Start: 06-12-2023 Consultation for treatment [facility] Start: 06-12-2023 Deep breathing and coughing exercises [facility] Start: 06-12-2023 Elevation of head of bed [facility] Start: 06-12-2023 End: 06-12-2023 Following clinical pathway protocol [facility] Start: 06-12-2023 Incentive spirometry [facility] Start: 06-12-2023 Patient education [facility] Start: 06-12-2023 Referral to self hel p service [facility] Start: 06-12-2023 Taking patient vital signs [facility] Start: 06-12-2023 Vital signs measurements [facility] Start: 06-12-2023 Wound care [facility] Start: 06-12-2023 [facility] Start: 06-12-2023 Admission procedure [facility] Start: 06-12-2023 Patient referral to dietitian [facility] Start: 05-08-2023 Patient referral [facility] Work Phone: Start: 05-05-2023 Covid-19 Vaccine ( season) Covid-19 Vaccine ( season) [facility] Start: 05-05-2023 Covid-19 Vaccine ( season) Covid-19 Vaccine () [facility] Start: 04-26-2023 Patient referral [facility] Work Phone: Start: 04-26-2023 CBC W Auto Different ial panel - Blood [facility] Start: 04-26-2023 [facility] Start: 01-20-2023 Patient referral [facility] Work Phone: Start: 09-04-2022 ADVANCE DIRECTIVE DISCUSSION ADVANCE DIRECTIVE DISCUSSION [facility] Start: 09-04-2022 DEPRESSION ASSESSMENT DEPRESSION ASS ESSMENT [facility] Start: 05-05-2022 Influenza vaccination INFLUENZA (#1) [facility] Start: 03-25-2022 Patient referral [facility] Work Phone: Start: 06-08-2021 Shingrix Vaccine (2 of 2) Francis grix Vaccine (2 of 2) [facility] Start: 04-15-2021 Patient referral Referrals: [facility] Start: 05-28-2020 Patient referral Screening Mammo, Bi lat [facility] [employer] [facility] Start: 05-12-2020 DIABETES SCREEN DIABETES SCREEN [facility] Start: 05-05-2020 Influenza vaccinatio n given INFLUENZA VACCINE (Season Ended) [facility] Start: 02-17-2020 End: 02-17-2020 Appointment 02/17/2020 Appointment Wound Care Dipak Newby DO [address] [place] [address] [phone] Isi Paul RN [facility] Wound [facility] Start: 01-28-2020 CMP ([id number]) , Appointment on: , Sent on: [facility] Start: 01-28-2020 End: 01-28-2020 Appointment 01/28/2020 Appointment Wound Dipak Bundy DO [address] [place] [address] [phone] Isi Paul RN [facility] Start: 01-20-2020 End: 01-20-2020 Appointment 01/20/2020 [place] [address] [place] [address] [phone] Isi Paul RN [facility] Start: 01-14-2020 End: 01-14-2020 Appointment 01/14/2020 [place] [address] [place] [address] [phone] Isi Paul RN [facility] Wound [facility] Start: 01-13-2020 Patient referral DX MAMMO INCL CAD UNI L [facility] [employer] Start: 01-06-2020 End: 01-06-2020 Appointment 01/06/2020 Appointment Wound Dipak Bundy DO [address] [place] [address] [phone] Ileana De La Cruz RN [facility] Wound [facility] Start: 06-24-2019 Patient referral DX MAMMO INCL CAD B I [facility] [employer] Start: 05-29-2019 Patient referral [facility]ica [facility] [employer] Start: 05-27-2019 CCP IgG Antibo dies ([id number]), Ordered on: [facility] Start: 05-17-2019 Patient referral SCR MAMMO BI INCL C AD [facility] Start: 05-05-2019 Influenza vaccinatio n given INFLUENZA VACCINE (#1) [facility] Start: 10-05-2018 Medicare Annual Well ness Visit Medicare Annual Wellness Visit [facility] Start: 05-23-2018 Patient referral Referrals: Dermatology. Ashwin Duran MD [facility] Start: 2016 BONE DENSITY BONE DENSITY [facility] Start: 2016 Fall risk assessment FALL RISK [facility] Start: 2016 Glaucoma screening GLAUCOMA/EY E EXAM AGE 65+ [facility] Start: 2016 Osteoporosis risk assessment done BONE DENSITY SCREENING [facility] Start: 2016 Pneumococcal polysaccharide vaccine (product) PNEUMONIA VACCINE (PCV13 PPSV23) (1 of 2 - PCV13) [facility] Start: 2016 PNEUMOCOCCAL: 65+ (1 - PCV) PNEUMOCOCCAL: 65+ (1 - PCV) [facility] Start: 2016 Screening for osteoporosis Bone Dens ity Screening [facility] Start: 04-29-2016 Lipid panel Lipid Screening [facility] Start: 04-29-2016 LIPID SCREEN LIPID SCREEN [facility] Start: 05-05-2012 Mammography MAMMOGRAM [facility] Start: 05-05-2012 Screening for malign ant neoplasm of breast Mammogram Screening [facility] Start: 2011 RSV Vaccine (1 - 1-d ose 60+ series) RSV Vaccine (1 - 1-dose 60+ series) [facility] Start: 2011 RSV Vaccine (1 - Ris k 60-74 years 1-dose series) RSV Vaccine (1 - Risk 60-74 years 1-dose series) [facility] Start: 2011 Varicella-zoster vac cine (product) ADULT VZV VACCINE [facility] Start: 09-15-2009 Colonoscopy COLONOSCOPY [facility] Start: 09-15-2009 COLORECTAL CANCER SCREENING COLORECTAL CANCER SCREENING [facility] Start: 09-15-2009 Screening for malign ant neoplasm of colon [facility] Start: 2001 Colonoscopy COLONOSCOPY 10 YR [facility] Start: 2001 Screening for malign ant neoplasm of colon [facility] Start: 2001 SHINGLES VACCINE (1 of 2) FRANCIS GLES VACCINE (1 of 2) [facility] Start: 2001 SHINGRIX VACCINE (1 of 2) FRANCIS GRIX VACCINE (1 of 2) [facility] Start: 09-05-2001 Urine microalbumin profile DTA P,TDAP,TD (1 - Tdap) [facility] Start: 1996 COLOGUARD (FIT-DNA) COLOGUARD (FIT-D NA) [facility] Start: [address] COLONOGRAPHY [facility] Start: 1996 FECAL OCCULT BLOOD FECAL OCCULT BLOO D [facility] Start: 1996 Screening for malign ant neoplasm of colon [facility] Start: 1996 SIGMOIDOSCOPY SIGMOIDOSCOPY [facility] Start: 1991 Screening mammography MAMMOGRAM [facility] Start: 1972 Tetanus, diphtheria and acellular pertussis vaccination TDAP/TD ADULT [facility] Start: 1970 Pneumococcal Vaccine : 50+ (1 of 2 - PCV) Pneumococcal Vaccine: 50+ (1 of 2 - PCV) [facility] Start: 1969 ANNUAL WELLNESS VISIT ANNUAL WELLNES S VISIT [facility] Start: 1969 Depression Screening Depression Scre ening [facility] Start: 1963 Adult depression [facility] assessment DEPRESSION SCREENING [facility] Start: 1957 Pneumococcal Vaccine : 65+ (1 of 2 - PCV) Pneumococcal Vaccine: 65+ (1 of 2 - PCV) [facility] Start: 03-24-1952 COVID-19 VACCINE (#1) COVID-19 VACCI NE (#1) [facility] Start: 1951 Hepatitis C screening HEPATITIS C [facility] Alanine aminotransfe rase [Enzymatic activity/volume] in Serum or Plasma [facility] Albumin [Mass/volume ] in Serum or Plasma [facility] Alkaline phosphatase [Enzymatic activity/volume] in Serum or Plasma [facility] Anion gap measurement [facility] Ankle brachial press ure index [facility] Aspartate aminotrans ferase [Enzymatic activity/volume] in Serum or Plasma [facility] Bacteria identified in Wound by Culture BACTERIAL CULTURE AND GRAM STAIN, ABSCESS AND WOUND (AEROBIC CULTURE) Microbiology Routine Venous ulcer of right lower extremity with varicose veins (HCC) 01/28/2025 11:30 AM EDT [facility] Work Phone: Bacteria identified in Wound by Culture BACTERIAL CULTURE AND GRAM STAIN, ABSCESS AND WOUND (AEROBIC CULTURE) Microbiology Routine Venous stasis ulcer of calf with fat layer exposed, unspecified laterality, unspecified whether varicose veins present (HCC) 05/20/2025 11:51 AM EDT [facility] Work Phone: Bilirubin, total measurement [facility] BUN/Creatinine ratio [facility] Calcium [Mass/volume ] in Serum or Plasma [facility] Carbon dioxide, tota l [Moles/volume] in Serum or Plasma [facility] CBC W Auto Different ial panel - Blood [facility] CBC W Auto Different ial panel - Blood [facility] CBC W Auto Different ial panel - Blood [facility] CBC W Auto Different ial panel - Blood [facility] CBC W Auto Different ial panel - Blood [facility] Chloride [Moles/volu me] in Serum or Plasma [facility] Clostridioides diffi cile DNA [Presence] in Unspecified specimen by JAMESON with probe detection [facility] metabo lic 1999 panel - Serum or Plasma [facility] Comprehensive metabo lic 1999 panel - Serum or Plasma [facility] Comprehensive metabo lic 1999 panel - Serum or Plasma [facility] Creatinine [Moles/vo lume] in Serum or Plasma [facility] DXA Bone [Mass/Area] Bone density [facility] Work Phone: DXA Bone [Mass/Area] Bone density [facility] Gastrointestinal pat hogens panel - Stool by JAMESON with probe detection [facility] Glucose [Mass/volume ] in Serum or Plasma [facility] Hematocrit [Volume Fraction] of Blood [facility] Hemoglobin [Mass/vol ume] in Blood [facility] Leukocytes [#/volume ] in Blood [facility] Mean corpuscular hemoglobin concentration determination [facility] Mean corpuscular hemoglobin determination [facility] Measurement of renal function [facility] MG Breast - bilatera l Screening [facility] Natriuretic peptide. B prohormone N-Terminal [Mass/volume] in Serum or Plasma [facility] Neutrophil count [facility] Neutrophil percent differential count [facility] Patient referral [facility] Work Phone: Platelets [#/volume] in Blood [facility] Potassium [Moles/vol ume] in Serum or Plasma [facility] Red blood cell count [facility] Red cell distributio n width determination [facility] Sodium [Moles/volume ] in Serum or Plasma [facility] Total protein measurement [facility] Urea nitrogen [Mass/volume] in Serum or Plasma [facility] Urinalysis complete panel - Urine [facility] Breast limited [facility] US Carotid arteries [facility] Heart [facility] Heart [facility] End: 02-26-2025 US Vein - bilateral US VENOUS INCOMPETENCY [facility] Routine Venous (peripheral) insufficiency Symptomatic varicose veins of both lower extremities 1 Occurrences starting 02/27/2024 until 02/26/2025 [facility] Work Phone: Comment on above: 1 Occurrences starti ng 02/27/2024 until 02/26/2025 Vitamin B6 measurement [facility] Vitamin D, 25-hydrox y measurement [facility] End: 12-23-2019 Wound culture Wound culture Microbiology Routine One Time for 1 Occurrences starting 12/23/2019 until 12/23/2019 [facility] Comment on above: One Time for 1 Occur rences starting 12/23/2019 until 12/23/2019 Wound culture [facility] End: 01-14-2020 Wound culture Wound culture Microbiology Routine One Time for 1 Occurrences starting 01/14/2020 until 01/14/2020 [facility] Comment on above: One Time for 1 Occur rences starting 01/14/2020 until 01/14/2020 End: 11-17-2023 XR HIP GENERAL 3V PELV/AP/LAT LEFT XR HIP GENERAL 3V PELV/AP/LAT LEFT Radiology Routine Pain 1 Occurrences starting 10/18/2022 until 11/17/2023 [facility] Work Phone: Comment on above: 1 Occurrences starti ng 10/18/2022 until 11/17/2023 XR Lumbar spine 2 or 3 Views [facility] Immunizations Immunization Date Immunization Notes Care Provider Destiny Helm-13-2022 Covid Pfizer Bivalen t Booster Dr. Khanh Rodriguez MD Work Phone: [facility] 06-12-[address] Khanh Rodriguez MD Work Phone: [facility] 04-25-2021 tetanus toxoid, redu leon diphtheria toxoid, and acellular pertussis vaccine, adsorbed Dr. Khanh Rodriguez MD Work Phone: [facility] 04-13-[address] Khanh Rodriguez MD Work Phone: [facility] 01-05-2021 Covid (Pfizer) Dr. Khanh Rodriguez MD Work Phone: [facility] 12-15-2020 Covid (Pfizer) Dr. Khanh Rodriguez MD Work Phone: [facility] 07-19-2002 hepatitis A vaccine, pediatric/adolescent dosage, [address] Khanh Rodriguez MD Work Phone: [facility] 07-19-2002 hepatitis A vaccine, unspecified formulation Yoseph Briones MD Work Phone: [facility] 07-19-2002 hepatitis B vaccine, adult dosage Yoseph Briones MD Work Phone: [facility] 10-23-2001 hepatitis A vaccine, pediatric/adolescent dosage, [address] Khanh Rodriguez MD Work Phone: [facility] 10-23-2001 hepatitis A vaccine, unspecified formulation Yoseph Briones MD Work Phone: [facility] 10-23-2001 hepatitis B vaccine, adult dosage Yoseph Briones MD Work Phone: [facility] 09-04-2001 tetanus and diphther ia toxoids, not adsorbed, for adult use Yoseph Briones MD Work Phone: [facility] Work Phone: Payers Date Payer Category Payer Self-pay [id number] 2021 Private Health Insurance MMO MEDICARE SUPPLEMENT [id number] 2021 Unknown [id number] 2018 Medicare xxxxxxxxxxxx [id number] 2018 Unknown [id number]. [id number] 2016 Medicare [id number]. [id number] 2016 Medicare [id number] Medicare MEDICARE MEDICAR E PART A & B xxxxxxxxxxx Effective for all dates [address] [place] [address] Medicare xxxxxxxxxxx [id number] Unknown [id number] 2.16.840.1.344395.3.579.2. 462 Unknown [id number] 2.16.840.1.579089.3.579.2. 462 Unknown [id number] 2.16.840.1.173889.3.579.2. 462 Unknown [id number] 2.840.1.104178.3.579.2. 462 Unknown [id number] 2.840.1.315540.3.579.2. 462 Unknown [id number] 2.840.1.909344.3.579.2. 462 Unknown [id number] 2.840.1.238828.3.579.2. 462 Unknown [id number] 2.840.1.382708.3.579.2. 462 Unknown [id number] 2.840.1.943899.3.579.2. 462 Unknown [id number] 2.840.1.083609.3.579.2. 462 Unknown [id number] 2.840.1.264657.3.579.2. 462 Unknown [id number] 2.840.1.616284.3.579.2. 462 Unknown [id number] .840.1.878445.3.579.2. 462 Unknown [id number] .840.1.927047.3.579.2. 462 Unknown [id number] 2.840.1.681999.3.579.2. 462 Unknown [id number] 2.840.1.723143.3.579.2. 462 Unknown [id number] .840.1.511273.3.579.2. 462 Unknown [id number] .840.1.112127.3.579.2. 462 Unknown [id number] 2.840.1.105201.3.579.2. 462 Unknown [id number] 2.840.1.290189.3.579.2. 462 Unknown [id number] 2.840.1.573286.3.579.2. 462 Unknown [id number] 2.840.1.655849.3.579.2. 462 Unknown [id number] 2.16.840.1.688365.3.579.2. 462 Social History Date Type Detail Facility Tobacco smoking status NHIS Unknown if ever smoked [facility] Sex Assigned At Not on file [facility] Start: 10-26-2021 End: 12-30-2023 Tobacco smoking status NHIS Unknown if ever smoked [facility] Start: 10-26-2021 Alcohol intake Alcohol Use Details [facility] Start: 1950 Sex Assigned At Female [facility] Start: 04-04-2012 End: 05-07-2025 Tobacco smoking status NHIS Never smoked tobacco [facility] Start: 04-04-2012 End: 02-27-2024 Tobacco use and exposure Smokeless tobacco non-user [facility] Start: 06-05-2019 End: 04-08-2025 Alcohol intake Current drinker of alcohol (finding) [facility] Start: 03-28-2017 Alcohol Comment 3 glasses of w ine daily-quit 05/2016 [facility] Start: 06-05-2019 End: 01-30-2024 History of Social function [facility] Start: 06-05-2019 End: 01-30-2024 Tobacco use panel [facility] Start: 08-05-2012 National Score (1-100), lower number is lower risk 99 [facility] Start: 07-04-2019 Gender identity Identifies as female gender (finding) [facility] Start: 07-04-2019 Sexual orientation Heterosexual (natalie garza) [facility] NEGATED: Highlighted row [facility] Medical Equipment Procedure Code Equipment Code Equipment Origin al Text Equipment Identifier Dates EGD, with monitored anesthesia care Oesophageal endoscopic ligator, single-useHaemorrhoi d ligator [id number] FDA Start: 12-28-2023 Collagen haemost atic agent, non-antimicrobial ()[id number] FDA Start: 06-12-2023 Ligation clip, metallic [id number] FDA Start: 06-12-2023 Ligation clip, metallic ([id number] FDA Start: 06-12-2023 Goals Date Patient Goal Desired Activity /State Personal health goal Functional Status Date Assessment Result Facility 12-30-2023 Functional status Ambulates [facility] Work Phone: 12-29-2023 Functional status Tolerates Activity Well [facility] Work Phone: 06-13-2023 Functional status Chair [facility] Work Phone: Mental Status Date Assessment Result Facility 04-25-2025 Cognitive function Voice/Name [facility] Work Phone: 03-28-2025 Cognitive function Voice/Name [facility] Work Phone: 01-31-2025 Cognitive function Voice/Name [facility] Work Phone: 12-30-2023 Cognitive function Voice/Name [facility] Work Phone: 06-13-2023 Cognitive function Level Of Cons ciousness Awake;Alert;Appropriate;Follow s Commands [facility] Work Phone: 06-13-2023 Cognitive function Voice/Name [facility] Work Phone: Clinical Notes 05-28-2020 to 06-03-2025 Amanda Soto, PT - 05/20/2025 11:40 AM Amanda Tipton, PT - 05/13/2025 11:40 AM Amanda Tipton, PT - 05/06/2025 11:40 AM EDT Note Date & Type Note Facility 06-03-2025 Note [facility] 06-02-2025 Note [facility] 06-01-2025 Note [facility] 06-01-2025 Note [facility] 05-31-2025 Note [facility] 05-31-2025 Note [facility] 05-30-2025 Note [facility] 05-29-2025 Note HNO ID: [id number] Author: NAUN DAVIS DPM Service: Podiatry Author Type: Physician Type: Plan of Care Filed: 05/29/2025 20:10 Note Text: Plan for OR debridement of wounds RIGHT and LEFT lower leg tomorrow with Dr Dougherty. NPO at midnight [facility] 05-29-2025 Note [facility] 05-29-2025 Note [facility] 05-27-2025 Note [facility] 05-27-2025 Note [facility] 05-27-2025 Note [facility] 05-20-2025 History of Presen t illness Narrative Episode Visit Count: 20 Therapist That Will Accept/Oversee The Plan Of Care: Amanda Soto Start of Care Date: 01/06/25 Onset Date: 08/14/24 (second week of August) Plan of Care Certification Date: 04/01/25 Next Certification Due Date: 07/05/25 Patient Identified by Name and Date of : Yes [facility] PHYSICAL THERAPY WOUND TREATMENT NOTE ASSESSMENT: Mary Alice Ga tolerated the session with increased pain symptoms. This date pain was more notable and less active wound care was tolerated due to the pain. She demonstrated difficulty with purulent drainage on dressing removal this date. Culture taken. The patient will continue to benefit from ongoing skilled physical therapy to address her RIGHT LE wound. Patient may need medical care/attention. Message relayed to the wound center for an ID follow up. PLAN FOR NEXT VISIT: continue with active wound care. SUBJECTIVE: pt reports back pain and R leg pain share making her miserable. Getting poor sleep due to pain from either area. Pain Tool: Verbal (Numeric Rating or Visual Analog Scale) Pain Level: 8 Pain Location: Leg-Right Description: Sore, Tenderness, Aching Duration: Continuous Intervention/Comfort measure: Medication, Reposition, Relaxation, Distractions, Emotional Support/Reassurance, Positioning, Other: See comment (compression and elevation) Response To Pain Intervention: 7-04/13 tender/sore/pain OBJECTIVE: Patient presents for follow-up wound care treatment with dressings intact but scant strike-through drainage noted on the lateral dressing. Gait remains very antalgic due to spinal issues and pain on the RIGHT LE. Rollator used. Pt reports the MRI of her spine is completed but has to go back on Monday for results. WOUND STATUS: Wound 02/29/24 1600 Venous Ulcer Calf Distal;Right;Lateral (Active) Assessments 05/20/2025 11:00 AM Site Assessment Painful;Red;Yellow;Linares;White Elif-Wound Assessment Fragile;Denuded;Erythematous;Edema;Mo ist ;Painful;Hyperpigmented Shape increase in distal erythema. the posterior wound segment is larger and the anterior area is now poorly defined. Wound Length (cm) 9.3 cm Wound Width (cm) 8.7 cm Wound Surface Area (cm^2) 63.55 cm^2 Wound Depth (cm) 0.3 cm Wound Volume (cm^3) 12.709 cm^3 Wound Healing % -149 Drainage Description Foul purulent;Serosanguineous;Green Drainage Amount Large with Strikethrough Odor Mild Elif-Wound Treatment Vaseline;Zinc Oxide;Betadine Treatments Cleansed;Mechanical Debridement;PT Compression;PT Debridement;PT Mist Therapy Dressing Changed Changed State of Healing Non-healing Wound Bed Granulation (%) 40 % Wound Bed Epithelium (%) 5 % Wound Bed Slough (%) 55 % (marbled slough and fibrotic tissue) Non-staged Wound Description Partial thickness TREATMENT: *dressing removed and noted green hue purulent drainage. The wound was mechanically swiped with a dry sterile gauze. Drainage accumulation allowed to resurface and a culture was taken. Conservative Sharp Debridement <20cm (33242): 5 mm curette used to selectively remove slough and score fibrotic tissue throughout the wound bed as tolerated. Skilled interventions: -Knowledge of tissue anatomy and wound care. -Skilled judgment was provided after wound assessment in selection of appropriate interventions. -Skilled hands-on technique for active wound care/sharp debridement with appropriate instruments to debride/remove devitalized and/or necrotic tissue to promote wound healing. -Assessment of pain tolerance throughout the session--use of topical Lidocaine throughout the session to minimize pain -<20cm2 of non-viable/necrotic tissue was removed from the wound bed Nonselective Debridement (78726): Cleansed the RIGHT LE with warm soapy water with chlorhexidine. Mechanical efforts via gauze swiping to remove elif-wound scales, loose slough on the wound bed, peeling tissue/exudative crust of the direct elif-wound and remove drainage accumulation and bio-burden on the wound surface and direct elif-wound as able. Skilled interventions: -Skilled knowledge of wound care and skilled application of knowledge for optimal wound healing environment and preventing/ minimizing adverse side effects. -Skilled education on rationale for dressing choice for reinforcement and improved compliance at home. -Skilled judgement and knowledge for optimization of wound care and skin integrity. -Skilled gentle cleansing and mechanical debridement to remove loose non-viable tissue, reduce bio-burden, and improve global skin integrity. -Dressing management/ application: LE recleansed with NS and blotted dry. Dakins compress x 5 min and rinsed with NS. Global Vaseline. Zinc oxide to the elif-wound + triple antibiotic ointment + Promogran + compression dressing as below with the Acticoat over the wound. Modalities: Noncontact Ultrasound MIST: 14 min to the RIGHT LE wound Skilled interventions: -Proper administration and selection of modality based on clinical presentation, deficits, and needs -Patient response monitored throughout treatment Compression Therapy (Multilayer Venous Wound Compression System) (73563): Skilled interventions: -Skilled knowledge of wound care and skilled application of knowledge for optimal wound healing environment and preventing/ minimizing adverse side effects. -Skilled education on rationale for dressing choice for reinforcement and improved compliance at home. -Compression dressing Profore Lite (20-30mmHg) applied to Right LE with ABD pad and DryMax between layers for increased drainage support. -Toes are warm and pink before and post boot application. -Reinforced wear and care of the compression dressing and that it she exhibits a change in color to the extremity, change in temperature, increased pain, or the dressing becomes wet (drainage strike-through or external soiling), the patient was instructed to remove the dressing and apply a cover dressing and ANTONIO wrap until she can be seen again by this PT or the wound center. Patient voices understanding with intent to comply. Reinforced elevation due to knee swelling. Avoid sitting with legs dependent. Post Treatment/Symptom(s): See above Billing: KX modifier applied - Therapist attests that services rendered are medically necessary. Noncontact Ultrasound Mist (75434): no charge (bundled) Selective Sharp Debridement <20cm (35184): 1 unit Nonselective debridement (79843): no charge (bundled) Multi-Layer Venous Wound Compression System (21990): 1 unit (untimed) Session Start Time : 1034 Session Stop Time : 1138 Total Time: 64 minutes Amanda Soto PT documented in this encounter [facility] 05-20-2025 Note [facility] 05-13-2025 History of Presen t illness Narrative Episode Visit Count: 19 Therapist That Will Accept/Oversee The Plan Of Care: Amanda Soto Start of Care Date: 01/06/25 Onset Date: 08/14/24 (second week of August) Plan of Care Certification Date: 04/01/25 Next Certification Due Date: 07/05/25 Patient Identified by Name and Date of : Yes [facility] PHYSICAL THERAPY WOUND TREATMENT NOTE ASSESSMENT: Mary Alice Ga tolerated the session with pain. She demonstrated difficulty with a slowly progressing LEFT LE wound. Concern for continued infection leading to high level of drainage and pain. This date, increase swelling noted of the proximal calf (above the dressing) and knee area. The distal elif-wound with minor denudement and erythema. Fibrotic stranding continues to challenge the wound bed. The patient will continue to benefit from ongoing skilled physical therapy to further progress wound care and continue to promote wound healing. PLAN FOR NEXT VISIT: continue with active wound care. Consider compression of the distal thigh/knee as warranted. SUBJECTIVE: pt reports much pain-- her back and her leg. Has pains on the dorsum of the foot at night, near the ankle crease. Patient states she is not sure how much longer she can deal with pain. Needs to have an MRI on her back and requests no SILVER product to the dressing this date. Pt c/o swelling of the R knee above her dressing. Pt upset over news from a spinal MD in [place] that she feels like the patients bones are too osteoporotic to do spinal surgery. Pain Tool: Verbal (Numeric Rating or Visual Analog Scale) Pain Level: 8 Pain Location: Leg-Right Description: Sore, Tenderness, Aching, Burning Duration: Continuous Intervention/Comfort measure: Medication, Reposition, Relaxation, Distractions, Emotional Support/Reassurance, Positioning (compression and elevation) Response To Pain Intervention: 8/10 on exit. Burning, ache, sore OBJECTIVE: Patient presents for follow-up wound care treatment with the compression dressing intact on the RIGHT LE. Very minor migration. Edema and minor erythema noted above the dressing. Gait is antalgic and scoliotic. WOUND STATUS: Wound 02/29/24 1600 Venous Ulcer Calf Distal;Right;Lateral (Active) Assessments 05/13/2025 11:00 AM Site Assessment Painful;Red;Yellow;Arroyo Elif-Wound Assessment Fragile;Hyperpigmented;Moist ;Painful Shape irregular with a small posterior satellite: 0.4 x 0.8. Primary wound with an area of epithelial bridging on the distal, anterior quadrant. Wound Length (cm) 8.5 cm Wound Width (cm) 6.8 cm Wound Surface Area (cm^2) 45.4 cm^2 Wound Depth (cm) 0.2 cm Wound Volume (cm^3) 6.053 cm^3 Wound Healing % -19 Drainage Description Serosanguineous Drainage Amount Large Odor Mild Elif-Wound Treatment Vaseline;Zinc Oxide;Betadine Treatments Cleansed;Mechanical Debridement;PT Compression;PT Debridement;PT Mist Therapy Dressing Changed Changed State of Healing Early/partial granulation Wound Bed Granulation (%) 65 % Wound Bed Epithelium (%) 5 % Wound Bed Slough (%) 30 % (marbled fibrotic and slough) Non-staged Wound Description Partial thickness TREATMENT: Conservative Sharp Debridement <20cm (69962): 5 mm curette used to selectively remove slough and score fibrotic tissue throughout the wound bed as able and tolerated. Skilled interventions: -Knowledge of tissue anatomy and wound care. -Skilled judgment was provided after wound assessment in selection of appropriate interventions. -Skilled hands-on technique for active wound care/sharp debridement with appropriate instruments to debride/remove devitalized and/or necrotic tissue to promote wound healing. -Assessment of pain tolerance throughout the session--use of topical Lidocaine throughout the session to minimize pain -<20cm2 of non-viable/necrotic tissue was removed from the wound bed Nonselective Debridement (50459): dressings removed. Cleansed the RIGHT LE with warm soapy water with chlorhexidine. Mechanical efforts via gauze swiping to remove elif-wound scales, loose slough on the wound bed, peeling tissue/exudative crust of the direct elif-wound and remove drainage accumulation and bio-burden on the wound surface and direct elif-wound. Skilled interventions: -Skilled knowledge of wound care and skilled application of knowledge for optimal wound healing environment and preventing/ minimizing adverse side effects. -Skilled education on rationale for dressing choice for reinforcement and improved compliance at home. -Skilled judgement and knowledge for optimization of wound care and skin integrity. -Skilled gentle cleansing and mechanical debridement to remove loose non-viable tissue, reduce bio-burden, and improve global skin integrity. -Dressing management/ application: LE recleansed with NS and blotted dry. Vashe compress x 5 min. Global Vaseline. Wound edges swiped with iodine. Zinc oxide to the elif-wound + Promogran + compression dressing as below with the Profore contact sheet over the wound. No silver products due to pending spinal MRI. Modalities: Noncontact Ultrasound MIST: 14 min to the RIGHT LE wound Skilled interventions: -Proper administration and selection of modality based on clinical presentation, deficits, and needs -Patient response monitored throughout treatment Compression Therapy (Multilayer Venous Wound Compression System) (21404): Skilled interventions: -Skilled knowledge of wound care and skilled application of knowledge for optimal wound healing environment and preventing/ minimizing adverse side effects. -Skilled education on rationale for dressing choice for reinforcement and improved compliance at home. -Compression dressing Profore Lite (20-30mmHg) applied to Right LE with ABD pad between layers for increased drainage support. -Toes are warm and pink before and post boot application. -Reinforced wear and care of the compression dressing and that it she exhibits a change in color to the extremity, change in temperature, increased pain, or the dressing becomes wet (drainage strike-through or external soiling), the patient was instructed to remove the dressing and apply a cover dressing and ANTONIO wrap until she can be seen again by this PT or the wound center. Patient voices understanding with intent to comply. Reinforced elevation due to knee swelling. Avoid sitting with legs dependent. Post Treatment/Symptom(s): See above Billing: KX modifier applied - Therapist attests that services rendered are medically necessary. Noncontact Ultrasound Mist (21140): no charge (bundled) Selective Sharp Debridement <20cm (48506): 1 unit Nonselective debridement (36506): no charge (bundled) Multi-Layer Venous Wound Compression System (66704): 1 unit (untimed) Session Start Time : 1043 Session Stop Time : 1135 Total Time: 52 minutes Amanda Soto PT documented in this encounter [facility] 05-13-2025 Note [facility] 05-06-2025 History of Presen t illness Narrative Episode Visit Count: 18 Therapist That Will Accept/Oversee The Plan Of Care: Amanda Soto Start of Care Date: 01/06/25 Onset Date: 08/14/24 (second week of August) Plan of Care Certification Date: 04/01/25 Next Certification Due Date: 07/05/25 Patient Identified by Name and Date of : Yes [facility] PHYSICAL THERAPY WOUND TREATMENT NOTE ASSESSMENT: Mary Alice Ga tolerated the session with expected discomfort. She demonstrated difficulty with fibrotic marbling of her RIGHT LE wound that hinders healing. She continues to be very sensitive/painful and direct debridement efforts are limited due to pain. Increased drainage with purulent quality is noted this date, as well as minor odor on dressing removal. The patient will continue to benefit from ongoing skilled physical therapy to monitor for signs of infection and continue to serially debride the wound to promote healing. PLAN FOR NEXT VISIT: continue with active wound care, serial debridements necessary, Compression imperative. SUBJECTIVE: pt continues to have R LE pain. She also continues to have issues with her back. Really wants her leg to heal so she can do her back surgery. Her spouse still requires a lot of attention and pt admits to it being very difficult to manage him. Pain Tool: Verbal (Numeric Rating or Visual Analog Scale) Pain Level: 6 Pain Location: Leg-Right Description: Sore, Tenderness, Aching Duration: Continuous Intervention/Comfort measure: Medication, Reposition, Relaxation, Distractions, Emotional Support/Reassurance, Positioning, Other: See comment (compression and elevation) Response To Pain Intervention: 02/11 on exit. Sore, burning OBJECTIVE: Patient presents for follow-up wound care treatment with dressing intact. Small strike-through on the anterior ankle crease. Gait is mod-I with her Rolator. Scoliotic posture and antalgic gait. WOUND STATUS: Wound 02/29/24 1600 Venous Ulcer Calf Distal;Right;Lateral (Active) Assessments 05/06/2025 11:15 AM Site Assessment Painful;Red;Yellow;Arroyo;White;Linares Elif-Wound Assessment Fragile;Hyperpigmented;Moist ;Painful Shape section of the wound broken off due to epithelial bridging is more shallow and improving. The epithelial bridge is strengthening. Wound Length (cm) 8.1 cm Wound Width (cm) 7.3 cm Wound Surface Area (cm^2) 46.44 cm^2 Wound Depth (cm) 0.2 cm Wound Volume (cm^3) 6.192 cm^3 Wound Healing % -21 Drainage Description Serosanguineous-purulent (yellow-[place] green hue). Drainage Amount Large with Strikethrough Odor Mild Elif-Wound Treatment Vaseline;Zinc Oxide;Betadine Treatments Cleansed;Mechanical Debridement;PT Compression;PT Debridement;PT Mist Therapy Dressing Changed Changed State of Healing Early/partial granulation Wound Bed Granulation (%) 65 % Wound Bed Epithelium (%) 10 % Wound Bed Slough (%) 25 % (marbled slough and fibrotic tissue) Non-staged Wound Description Partial thickness TREATMENT: Conservative Sharp Debridement <20cm (09655): 5 mm curette used to selectively remove slough and score fibrotic tissue throughout the wound bed as able and tolerated. Additional silver nitrate used to further chemically debride areas of dense fibrotic tissue, mostly on the distal more posterior area of the wound. Skilled interventions: -Knowledge of tissue anatomy and wound care. -Skilled judgment was provided after wound assessment in selection of appropriate interventions. -Skilled hands-on technique for active wound care/sharp debridement with appropriate instruments to debride/remove devitalized and/or necrotic tissue to promote wound healing. -Assessment of pain tolerance throughout the session--use of topical Lidocaine throughout the session to minimize pain -<20cm2 of non-viable/necrotic tissue was removed from the wound bed Nonselective Debridement (60767): dressings removed. Cleansed the RIGHT LE with warm soapy water with chlorhexidine. Mechanical efforts via gauze swiping to remove elif-wound scales, loose slough on the wound bed, peeling tissue/exudative crust of the direct elif-wound and reduce drainage accumulation and bio-burden on the wound surface and direct elif-wound. Skilled interventions: -Skilled knowledge of wound care and skilled application of knowledge for optimal wound healing environment and preventing/ minimizing adverse side effects. -Skilled education on rationale for dressing choice for reinforcement and improved compliance at home. -Skilled judgement and knowledge for optimization of wound care and skin integrity. -Skilled gentle cleansing and mechanical debridement to remove loose non-viable tissue, reduce bio-burden, and improve global skin integrity. -Dressing management/ application: LE recleansed with NS and blotted dry. Dakin's compress x 5 min. Global Vaseline. Wound edges swiped with iodine. Zinc oxide to the elif-wound + Triple antibiotic ointment to the wound bed + Promogran and NS moistened fenestrated Endoform + Acticoat + compression dressing as below. Modalities: Noncontact Ultrasound MIST: 14 min to the RIGHT LE wound Skilled interventions: -Proper administration and selection of modality based on clinical presentation, deficits, and needs -Patient response monitored throughout treatment Compression Therapy (Multilayer Venous Wound Compression System) (11963): Skilled interventions: -Skilled knowledge of wound care and skilled application of knowledge for optimal wound healing environment and preventing/ minimizing adverse side effects. -Skilled education on rationale for dressing choice for reinforcement and improved compliance at home. -Compression dressing Profore Lite (20-30mmHg) applied to Right LE with DryMax and ABD pad between layers for increased drainage support. -Toes are warm and pink before and post boot application. -Reinforced wear and care of the compression dressing and that it she exhibits a change in color to the extremity, change in temperature, increased pain, or the dressing becomes wet (drainage strike-through or external soiling), the patient was instructed to remove the dressing and apply a cover dressing and ANTONIO wrap until she can be seen again by this PT or the wound center. Patient voices understanding with intent to comply. Post Treatment/Symptom(s): See above Billing: Noncontact Ultrasound Mist (00964): no charge (bundled) Selective Sharp Debridement <20cm (29341): 1 unit Nonselective debridement (80122): no charge (bundled) Multi-Layer Venous Wound Compression System (85399): 1 unit (untimed) Session Start Time : 1047 Session Stop Time : 1143 Total Time: 56 minutes Amanda Soto PT documented in this encounter [facility] 05-06-2025 Note [facility] 04-29-2025 Evaluation note Diagnosis Onset Date Resolution Chronic pain chronic April 29, 2025 12:39pm Cirrhosis chronic April 29, 025 12:39pm Dyspnea chronic April 29 12:39pm Compression fracture of lumbar vertebra acute May 08 1:03pm History of kyphoplasty acute Se ptember 2024 1:03pm Lumbar stenosis with neurogenic claudication acute Septembe r 2024 1:03pm Osteoporosis chronic May 1:03pm Cellulitis of right leg acute S eptember 2024 8:04am CHF (congestive heart failure) acute May 21, 2025 8:04am Compression fracture of lumbar vertebra acute May 21, 2025 8:04am Decompensated hepatic cirrhosis acute May 21, 2025 8:04am Osteoporosis chronic May 212024 8:04am [facility] Work Phone: [phone]) 622-643708-25-2025 History of Present illness Narrative* Amanda Soto, PT - 04/28/2025 10:30 AM EDT Images from the original note were not included. Episode Visit Count: 17 Therapist That Will Accept/Oversee The Plan Of Care: Amanda Soto Start of Care Date: 01/06/25 Onset Date: 08/14/24 (second week of August) Plan of Care Certification Date: 04/01/25 Next Certification Due Date: 07/05/25 Patient Identified by Name and Date of : Yes [facility] PHYSICAL THERAPY WOUND TREATMENT AND PROGRESS REPORT PLAN OF CARE UPDATE: Mary Alice Ga demonstrates minimal improvement in wound healing. The patient has progressed toward goals. Patient continues to present with impairments in wound healing that interfere with ADLSand IADLS, increased care needs, remains at risk of infection, and is hindering surgical intervention for her back. The patient will benefit from continued skilled therapy services to meet the updated goals for thisplan of care as noted below. Goals for Episode of Care: created on 01/06/25 through 07/05/25 UPDATED 04/28/25 Debride 50% of non-viable tissue from the wound bed: MET Eliminate all nonviable tissue from the wound bed: not met Decrease overall wound surface area (length x width) by 75% for the wound: not met Achieve full closure of wound on the RIGHT lateral lower leg: not met Decrease wound exudate from a copious amount to nil amount: not met, drainage remains heavy Decrease edema from 1 to 2 cm for vascular decongestion and reduced drainage.: not formally retested this date. Patient compliant with and tolerating compression dressings. Decrease pain complaints to 2/10 when most severe: not met, pain remains high Patient/ Caregiver will be able to demonstrate competence with dressing management: met: compliant with and tolerating current dressing regimen. PLAN: Follow up for one visit(s) per week for eight weeks for, Selective debridement <20cm, Selective debridement >20cm, Nonselective debridement, Noncontact Ultrasound Mist, Compression Therapy (dressing), Patient/ Caregiver Education, and Self Care/ Home Management SUBJECTIVE: pt c/o much pain and limited sleeping due to the pain. wants her leg to heal so she canmove forward with back care as she reports her back is getting worse and worse. Pain Tool: Verbal (Numeric Rating or Visual Analog Scale) Pain Level: 5 Pain Location: Leg-Right Description: Sore, Tenderness, Aching Duration: Continuous Intervention/Comfort measure: Medication, Reposition, Relaxation, Distractions, Emotional Support/Reassurance, Positioning, Other: See comment (compression and elevation) Response To Pain Intervention: 5-6/10, sore;tender, burning PROMIS Scales 06/26/2024 05/28/2024 04/30/2024 Higher is Better Phys Func - T Score 30 (moderate dysfunction) 29 (severe dysfunction) 43 (mild dysfunction) Phys Func - Percentile 2 2 24 Self-Eff Symptom - T Score 49 (Average) 48 (Average) Self-Eff Symptom - Percentile 46 42 Proxy-reported 04/22/2025 03/19/2025 02/17/2025 Lower is Better Pain Interference - T Score 66 (moderate) 60 (mild) 65 (moderate) Pain Interference - Percentile 5 16 7 T-Score and Percentile Interpretation T-scores: mean of general population = 50. 5 points is clinically meaningfully difference Percentiles provide an indication of how the patient's score ranks in relation to the general population. Higher percentile rankings indicate better function/quality of life. 50th percentile is the average of the general population and indicates half of respondents had a worse score. OBJECTIVE MEASURES WITH LEVEL OF FUNCTION: Patient presents for follow-up wound care treatment with the compression dressing intact and in good position. No strike-through noted. Gait antalgic due to RIGHT LE and back pain. Scoliotic posture. WOUND STATUS: Wound 02/29/24 1600 Venous Ulcer Calf Distal;Right;Lateral (Active) Assessments 04/28/2025 9:30 AM Site Assessment Painful;Yellow;Red;[place] Elif-Wound Assessment Fragile;Hyperpigmented;Erythematous;Painful;Moist Shape bridge in the lower R quadrant continues to strengthen and enlarge Wound Length (cm) 8.5 cm Wound Width (cm) 6 cm Wound Surface Area (cm^2) 40.06 cm^2 Wound Depth (cm) 0.2 cm Wound Volume (cm^3) 5.341 cm^3 Wound Healing % -5 Drainage Description Serosanguineous Drainage Amount Large Odor None Elif-Wound Treatment Vaseline;Zinc Oxide;Betadine Treatments Cleansed;Mechanical Debridement;PT Compression;PT Debridement;PT Mist Therapy Dressing Changed Changed State of Healing Early/partial granulation Wound Bed Granulation (%) 65 % Wound Bed Epithelium (%) 10 % Wound Bed Slough (%) 25 % (slough and fibrotic tissue) Non-staged Wound Description Partial thickness TREATMENT: Conservative Sharp Debridement <20cm (75921): 5 mm curette used to selectively remove slough andscore fibrotic tissue throughout the wound bed as able and tolerated. Skilled interventions: -Knowledge of tissue anatomy and wound care. -Skilled judgment was provided after wound assessment in selection of appropriate interventions. -Skilled hands-on technique for active wound care/sharp debridement with appropriate instruments todebride/remove devitalized and/or necrotic tissue to promote wound healing. -Assessment of pain tolerance throughout the session--use of topical Lidocaine throughout the session to minimize pain -<20cm2 of non-viable/necrotic tissue was removed from the wound bed Nonselective Debridement (38342): dressings removed. Cleansed the RIGHT LE with warm soapy water with chlorhexidine. Mechanical efforts via gauze swiping to remove elif-wound scales, loose slough on the wound bed, peeling tissue/exudative crust of the direct elif-wound and reduce drainage accumulation and bio-burden on the wound surface and direct elif-wound. Skilled interventions: -Skilled knowledge of wound care and skilled application of knowledge for optimal wound healing environment and preventing/ minimizing adverse side effects. -Skilled education on rationale for dressing choice for reinforcement and improved compliance at home. -Skilled judgement and knowledge for optimization of wound care and skin integrity. -Skilled gentle cleansing and mechanical debridement to remove loose non-viable tissue, reduce bio-burden, and improve global skin integrity. -Dressing management/ application: LE recleansed with NS and blotted dry. Vashe compress x 5 min. Global Vaseline. Wound bed and wound edges swiped with iodine. Zinc oxide to the elif-wound + Triple antibiotic ointment to the wound bed + NS moistened fenestrated Endoform + Acticoat + compression dressing as below. Modalities: Noncontact Ultrasound MIST: 14 min to the RIGHT LE wound Skilled interventions: -Proper administration and selection of modality based on clinical presentation, deficits, and needs -Patient response monitored throughout treatment Compression Therapy (Multilayer Venous Wound Compression System) (71599): Skilled interventions: -Skilled knowledge of wound care and skilled application of knowledge for optimal wound healing environment and preventing/ minimizing adverse side effects. -Skilled education on rationale for dressing choice for reinforcement and improved compliance at home. -Compression dressing Profore Lite (20-30mmHg) applied to Right LE with DryMax and ABD pad between layers for increased drainage support. -Toes are warm and pink before and post boot application. -Reinforced that it she exhibits a change in color to the extremity, change in temperature, increased pain, or the dressing becomes wet (drainage strike- through or external soiling), the patient was instructed to remove the dressing and apply a cover dressing and ANTONIO wrap until she can be seen again by this PT or the wound center. Patient voices understanding with intent to comply. Post Treatment/Symptom(s): See above Billing: Noncontact Ultrasound Mist (23554): no charge (bundled) Selective Sharp Debridement <20cm (88876): 1 unit Nonselective debridement (39093): no charge (bundled) Multi-Layer Venous Wound Compression System (18776): 1 unit (untimed) Session Start Time : 933 Session Stop Time : 1028 Total Time: 55 minutes [facility] History of Present illness Narrative* Amanda Soto PT - 04/22/2025 11:33 AM EDT Episode Visit Count: 16 Therapist That Will Accept/Oversee The Plan Of Care: Amanda Soto Start of Care Date: 01/06/25 Onset Date: 08/14/24 (second of August) Plan of Care Certification Date: 04/01/25 Next Certification Due Date: 07/05/25 Patient Identified by Name and Date of : Yes [facility] PHYSICAL THERAPY WOUND TREATMENT NOTE ASSESSMENT: Mary Alice Ga tolerated the session with expected discomfort. Pain levels remain high. She demonstrated difficulty with mild regression of size, however the anterior aspect of the wound bed is very shallow. Fibrotic strands webbed in the wound bed are problematic. The patient willcontinue to benefit from ongoing skilled physical therapy to further address the wound and promote optimal potential for wound healing. PLAN FOR NEXT VISIT: recheck/progress note next session. Continue with active wound care, serial debridements necessary SUBJECTIVE: pt continues to c/o high levels of pain, especially at night. C/o burning pain. Very tired due to limited sleep and issues caring for spouse. Patient reports she really needs her leg healed so she can get her back fixed. Pain Tool: Verbal (Numeric Rating or Visual Analog Scale) Pain Level: 6 Pain Location: Leg-Right Description: Sore, Tenderness, Burning, Aching Duration: Continuous Intervention/Comfort measure: Medication, Reposition, Relaxation, Distractions, Emotional Support/Reassurance, Positioning, Other: See comment (compression and elevation) Response To Pain Intervention: 6/10. burning OBJECTIVE: Patient presents for follow-up wound care treatment with the compression dressing intact. Minor strike-through drainage anterior ankle. WOUND STATUS: Wound 02/29/24 1600 Venous Ulcer Calf Distal;Right;Lateral (Active) Assessments 04/22/2025 11:00 AM Site Assessment Red;Yellow;[place] Elif-Wound Assessment Erythematous;Fragile;Hyperpigmented;[place];Moist ;Painful Wound Length (cm) 8.2 cm Wound Width (cm) 7 cm Wound Surface Area (cm^2) 45.08 cm^2 Wound Depth (cm) 0.2 cm Wound Volume (cm^3) 6.011 cm^3 Wound Healing % -18 Drainage Description Serosanguineous Drainage Amount Large with Strikethrough Odor None Elif-Wound Treatment Vaseline;Zinc Oxide;Betadine Treatments Cleansed;Mechanical Debridement;PT Compression;PT Mist Therapy;PT Debridement Dressing Changed Changed State of Healing Early/partial granulation Wound Bed Granulation (%) 60 % Wound Bed Epithelium (%) 10 % Wound Bed Slough (%) 30 % (slough, fibrotic tissue) Non-staged Wound Description Partial thickness No associated orders. TREATMENT: Conservative Sharp Debridement <20cm (16661): 5 mm curette used to selectively remove slough andscore fibrotic tissue throughout the wound bed as able and tolerated. Additional sharp technique via a scalpel to score and break fibrotic banding in select areas. Skilled interventions: -Knowledge of tissue anatomy and wound care. -Skilled judgment was provided after wound assessment in selection of appropriate interventions. -Skilled hands-on technique for active wound care/sharp debridement with appropriate instruments todebride/remove devitalized and/or necrotic tissue to promote wound healing. -Assessment of pain tolerance throughout the session--use of topical Lidocaine throughout the session to minimize pain -<20cm2 of non-viable/necrotic tissue was removed from the wound bed Nonselective Debridement (19215): dressings removed. Cleansed the RIGHT LE with warm soapy water with chlorhexidine. Mechanical efforts via gauze swiping to remove elif-wound scales, loose slough on the wound bed, peeling tissue/exudative crust of the direct elif-wound and reduce drainage accumulation and bio-burden on the wound surface and direct elif-wound. Additional mechanical efforts via chlorhexidine sponge. Skilled interventions: -Skilled knowledge of wound care and skilled application of knowledge for optimal wound healing environment and preventing/ minimizing adverse side effects. -Skilled education on rationale for dressing choice for reinforcement and improved compliance at home. -Skilled judgement and knowledge for optimization of wound care and skin integrity. -Skilled gentle cleansing and mechanical debridement to remove loose non-viable tissue, reduce bio-burden, and improve global skin integrity. -Dressing management/ application: LE recleansed with NS and blotted dry. Vashe compress x 5 min. Global Vaseline. Wound bed and wound edges swiped with iodine. Zinc oxide to the elif-wound + Triple antibiotic ointment to the wound bed + Promogran + Acticoat + Alginate Ag to distal erythemic area +compression dressing as below. Modalities: Noncontact Ultrasound MIST: not rendered as the unit was unavailable this date. Compression Therapy (Multilayer Venous Wound Compression System) (87274): Skilled interventions: -Skilled knowledge of wound care and skilled application of knowledge for optimal wound healing environment and preventing/ minimizing adverse side effects. -Skilled education on rationale for dressing choice for reinforcement and improved compliance at home. -Compression dressing Profore Lite (20-30mmHg) applied to Right LE with DryMax and ABD pad between layers for increased drainage support. -Toes are warm and pink before and post boot application. -Reinforced that it she exhibits a change in color to the extremity, change in temperature, increased pain, or the dressing becomes wet (drainage strike- through or external soiling), the patient was instructed to remove the dressing and apply a cover dressing and ANTONIO wrap until she can be seen again by this PT or the wound center. Patient voices understanding with intent to comply. Post Treatment/Symptom(s): See above Billing: Selective Sharp Debridement <20cm (83217): 1 unit Nonselective debridement (58819): no charge (bundled) Multi-Layer Venous Wound Compression System (70622): 1 unit (untimed) Session Start Time : 104 Session Stop Time : 1133 Total Time: 51 minutes [facility] History of Present illness Narrative* Amanda Soto, PT - 04/15/2025 11:35 AM EDT Episode Visit Count: 15 Therapist That Will Accept/Oversee The Plan Of Care: Amanda Soto Start of Care Date: 01/06/25 Onset Date: 08/14/24 (second week of August) Plan of Care Certification Date: 04/01/25 Next Certification Due Date: 07/05/25 Patient Identified by Name and Date of : Yes [facility] PHYSICAL THERAPY WOUND TREATMENT NOTE ASSESSMENT: Mary Alice Ga tolerated the session with expected pain. Pain minimized with topical lidocaine with fair results. She demonstrated improvements in wound size and and enlarging epithelial area on the distal anterior wound area. Near full bridging of the epithelial mass breaking the d istal anterior segment into a separate area. The patient will continue to benefit from ongoing skilled physical therapy to progress toward set goals and promote wound healing. PLAN FOR NEXT VISIT: continue with active wound care, serial debridements and compression is warranted. SUBJECTIVE: pt states pain is a little bit better but still bad at night Pain Tool: Verbal (Numeric Rating or Visual Analog Scale) Pain Level: 4 Pain Location: Leg-Right Description: Sore, Tenderness, Aching Duration: Continuous Intervention/Comfort measure: Medication, Reposition, Relaxation, Distractions, Emotional Support/Reassurance, Positioning (compression and elevation) Response To Pain Intervention: 6-7/10 ache/tender/sore OBJECTIVE: Patient presents for follow-up wound care treatment with the compression dressing intact. One area on the ankle crease with scant drainage strike-through. WOUND STATUS: Wound 02/29/24 1600 Venous Ulcer Calf Distal;Right;Lateral (Active) Assessments 04/15/2025 11:00 AM Site Assessment Red;Yellow Elif-Wound Assessment Fragile;Hyperpigmented;Moist ;Painful Shape increased bridge on the distal anterior segment Wound Length (cm) 8 cm Wound Width (cm) 5.8 cm Wound Surface Area (cm^2) 36.44 cm^2 Wound Depth (cm) 0.2 cm Wound Volume (cm^3) 4.859 cm^3 Wound Healing % 5 Drainage Description Serosanguineous Drainage Amount Moderate Odor None Elif-Wound Treatment Vaseline;Zinc Oxide;Betadine Treatments Cleansed;Mechanical Debridement;PT Compression;PT Debridement;PT Mist Therapy Dressing Changed Changed State of Healing Early/partial granulation Wound Bed Granulation (%) 65 % Wound Bed Epithelium (%) 10 % Wound Bed Slough (%) 25 % (marbled fibrotic tissue and slough) Non-staged Wound Description Partial thickness No associated orders. TREATMENT: Conservative Sharp Debridement <20cm (52206): 5 mm curette used to selectively remove slough andscore fibrotic tissue throughout the wound bed as able and tolerated. Skilled interventions: -Knowledge of tissue anatomy and wound care. -Skilled judgment was provided after wound assessment in selection of appropriate interventions. -Skilled hands-on technique for active wound care/sharp debridement with appropriate instruments todebride/remove devitalized and/or necrotic tissue to promote wound healing. -Assessment of pain tolerance throughout the session--use of topical Lidocaine throughout the session to minimize pain -<20cm2 of non-viable/necrotic tissue was removed from the wound bed Nonselective Debridement (27918): dressings removed. Cleansed the RIGHT LE with warm soapy water with chlorhexidine. Mechanical efforts via gauze swiping to remove elif-wound scales, loose slough on the wound bed, peeling tissue/exudative crust of the direct elif-wound and reduce drainage accumulation and bio-burden on the wound surface and direct elif-wound. Skilled interventions: -Skilled knowledge of wound care and skilled application of knowledge for optimal wound healing environment and preventing/ minimizing adverse side effects. -Skilled education on rationale for dressing choice for reinforcement and improved compliance at home. -Skilled judgement and knowledge for optimization of wound care and skin integrity. -Skilled gentle cleansing and mechanical debridement to remove loose non-viable tissue, reduce bio-burden, and improve global skin integrity. -Dressing management/ application: LE recleansed with NS and blotted dry. Global Vaseline. Wound bed and wound edges swiped with iodine. Zinc oxide to the elif- wound + Triple antibiotic ointment to the wound bed + Promogran + Acticoat + compression dressing as below. Modalities: Noncontact Ultrasound MIST: 14 min to the RIGHT LE wound Skilled interventions: -Proper administration and selection of modality based on clinical presentation, deficits, and needs -Patient response monitored throughout treatment Compression Therapy (Multilayer Venous Wound Compression System) (17119): Skilled interventions: -Skilled knowledge of wound care and skilled application of knowledge for optimal wound healing environment and preventing/ minimizing adverse side effects. -Skilled education on rationale for dressing choice for reinforcement and improved compliance at home. -Compression dressing Profore Lite (20-30mmHg) applied to Right LE with DryMax and ABD pad between layers for increased drainage support. -Toes are warm and pink before and post boot application. -Reinforced that it she exhibits a change in color to the extremity, change in temperature, increased pain, or the dressing becomes wet (drainage strike- through or external soiling), the patient was instructed to remove the dressing and apply a cover dressing and ANTONIO wrap until she can be seen again by this PT or the wound center. Patient voices understanding with intent to comply. Post Treatment/Symptom(s): See above Billing: Noncontact Ultrasound Mist (32443): no charge (bundled) Selective Sharp Debridement <20cm (27887): 1 unit Nonselective debridement (55764): no charge (bundled) Multi-Layer Venous Wound Compression System (83224): 1 unit (untimed) Session Start Time : 1049 Session Stop Time : 1138 Total Time: 49 minutes Amanda Soto PT [facility]08[facility]05[id number] History of Present illness Narrative* Amanda Soto, PT - 04/01/2025 11:43 AM EDT Images from the original note were not included. Episode Visit Count: 13 Therapist That Will Accept/Oversee The Plan Of Care: Amanda Soto Start of Care Date: 01/06/25 Onset Date: 08/14/24 (second week of August) Plan of Care Certification Date: 04/01/25 Next Certification Due Date: 07/05/25 Patient Identified by Name and Date of : Yes [facility] PHYSICAL THERAPY WOUND TREATMENT AND PROGRESS REPORT PLAN OF CARE UPDATE: Mary Alice Ga demonstrates minimal improvement in wound healing evidenced by reduced size of the wound and improved quality of the wound bed. Subtle areas of new epithelial tissue migration arenoted along the periphery. Posterior-- a small area is broken off due to bridging. The distal anterior/lateral wound segment is nearly due to epithelial bridging as well. Drainage remains heavy. The patient has progressed toward goals. Patient continues to present with impairments in wound healing that interfere with ADLs/IADLs, increased care needs and remains at risk of recurrent infections due to disrupted skin integrity. The patient will benefit from continued skilled therapy services to meet the updated goals for thisplan of care as noted below. Goals for Episode of Care: created on 01/06/25 through 07/05/25 UPDATED 04/01/25 Debride 50% of non-viable tissue from the wound bed: MET Eliminate all nonviable tissue from the wound bed: not met Decrease overall wound surface area (length x width) by 75% for the wound: not met Achieve full closure of wound on the RIGHT lateral lower leg: not met Decrease wound exudate from a copious amount to nil amount: not met, drainage remains heavy Decrease edema from 1 to 2 cm for vascular decongestion and reduced drainage.: not formally retested. Patient tolerating serially applied compression dressings resulting in good edema control. Decrease pain complaints to 2/10 when most severe: not met, pain remains high Patient/ Caregiver will be able to demonstrate competence with dressing management: mostly met: compliant with and tolerating current dressing regimen. Final recommendations pending wound progress PLAN: Follow up for one visit(s) per week for twelve weeks for, Selective debridement <20cm, Selective debridement >20cm, Nonselective debridement, Noncontact Ultrasound Mist, Compression Therapy (dressing), Patient/ Caregiver Education, and Self Care/ Home Management SUBJECTIVE: pt apologizes for running late. Neighbor's children come over today to tell her her neighbor . Patient tearful. She states her leg is feeling better but still painful, espeically at night. Her back is most restrictive but she cannot have anything done to her back until her leg is closed. Pain Tool: Verbal (Numeric Rating or Visual Analog Scale) Pain Level: 5 Pain Location: Leg-Right Description: Sore, Tenderness Duration: Continuous Intervention/Comfort measure: Medication, Reposition, Relaxation, Distractions, Emotional Support/Reassurance, Positioning, Other: See comment (compression and elevation) Response To Pain Intervention: 7 sore/tender, burning PROMIS Scales 06/26/2024 05/28/2024 04/30/2024 Higher is Better Phys Func - T Score 30 (moderate dysfunction) 29 (severe dysfunction) 43 (mild dysfunction) Phys Func - Percentile 2 2 24 Self-Eff Symptom - T Score 49 (Average) 48 (Average) Self-Eff Symptom - Percentile 46 42 Proxy-reported 03/19/2025 02/17/2025 01/06/2025 Lower is Better Pain Interference - T Score 60 (mild) 65 (moderate) 68 (moderate) Pain Interference - Percentile 16 7 4 T-Score and Percentile Interpretation T-scores: mean of general population = 50. 5 points is clinically meaningfully difference Percentiles provide an indication of how the patient's score ranks in relation to the general population. Higher percentile rankings indicate better function/quality of life. 50th percentile is the average of the general population and indicates half of respondents had a worse score. OBJECTIVE MEASURES WITH LEVEL OF FUNCTION: Patient presents for follow-up wound care treatment with the compression dressing intact. Scant strike-through on the anterior ankle crease. Gait is mod- I with her Rolator, but antalgic due to RIGHT LE pain and spinal issues. WOUND STATUS: Wound 02/29/24 1600 Venous Ulcer Calf Distal;Right;Lateral (Active) Assessments 04/01/2025 11:30 AM Site Assessment Red;Yellow;Linares Elif-Wound Assessment Fragile;Hyperpigmented;Maceration;Denuded;Painful;Erythematous Shape anterior wound resolved. Posterior with smaller section broken off due to epithelial bridging. Wound Length (cm) 9 cm Wound Width (cm) 6 cm Wound Surface Area (cm^2) 54 cm^2 Wound Depth (cm) 0.2 cm Wound Volume (cm^3) 10.8 cm^3 Wound Healing % -112 Drainage Description Serosanguineous;Purulent Drainage Amount Large with Strikethrough Odor None Elif-Wound Treatment Vaseline;Zinc Oxide;Betadine Treatments Cleansed;Mechanical Debridement;PT Compression;PT Debridement;PT Mist Therapy Dressing Changed Changed State of Healing Non-healing;Early/partial granulation Wound Bed Granulation (%) 65 % Wound Bed Slough (%) 35 % (marbled fibrotic and slough) Non-staged Wound Description Partial thickness No associated orders. TREATMENT: Conservative Sharp Debridement <20cm (54087): 5 mm curette used to selectively remove slough andscore fibrotic tissue throughout the wound bed as able and tolerated. Additional chemical debridement via Silver Nitrate to select areas to reduce more dense fibrotic tissue. Skilled interventions: -Knowledge of tissue anatomy and wound care. -Skilled judgment was provided after wound assessment in selection of appropriate interventions. -Skilled hands-on technique for active wound care/sharp debridement with appropriate instruments todebride/remove devitalized and/or necrotic tissue to promote wound healing. -Assessment of pain tolerance throughout the session--use of topical Lidocaine throughout the session to minimize pain -<20cm2 of non-viable/necrotic tissue was removed from the wound bed Nonselective Debridement (91891): dressings removed. Cleansed the RIGHT LE with warm soapy water with chlorhexidine. Mechanical efforts via gauze swiping to remove elif-wound scales, loose slough on the wound bed, peeling tissue/exudative crust of the direct elif-wound and reduce drainage accumulation and bio-burden on the wound surface and direct elif-wound. Skilled interventions: -Skilled knowledge of wound care and skilled application of knowledge for optimal wound healing environment and preventing/ minimizing adverse side effects. -Skilled education on rationale for dressing choice for reinforcement and improved compliance at home. -Skilled judgement and knowledge for optimization of wound care and skin integrity. -Skilled gentle cleansing and mechanical debridement to remove loose non-viable tissue, reduce bio-burden, and improve global skin integrity. -Dressing management/ application: LE recleansed with NS and blotted dry. Global Vaseline. Wound bed and wound edges swiped with iodine. Zinc oxide to the elif- wound + Triple antibiotic ointment + Promogran + Acticoat + compression dressing as below. Modalities: Noncontact Ultrasound MIST: 15 min to the RIGHT LE wound Skilled interventions: -Proper administration and selection of modality based on clinical presentation, deficits, and needs -Patient response monitored throughout treatment Compression Therapy (Multilayer Venous Wound Compression System) (18420): Skilled interventions: -Skilled knowledge of wound care and skilled application of knowledge for optimal wound healing environment and preventing/ minimizing adverse side effects. -Skilled education on rationale for dressing choice for reinforcement and improved compliance at home. -Compression dressing Profore Lite (20-30mmHg) applied to Right LE with DryMax and ABD pad between layers for increased drainage support. -Toes are warm and pink before and post boot application. -Reinforced that it she exhibits a change in color to the extremity, change in temperature, increased pain, or the dressing becomes wet (drainage strike- through or external soiling), the patient was instructed to remove the dressing and apply a cover dressing and ANTONIO wrap until she can be seen again by this PT or the wound center. Patient voices understanding with intent to comply. Post Treatment/Symptom(s): See above Billing: Noncontact Ultrasound Mist (28600): no charge (bundled) Selective Sharp Debridement <20cm (05657): 1 unit Nonselective debridement (29602): no charge (bundled) Multi-Layer Venous Wound Compression System (40224): 1 unit (untimed) Session Start Time : 1056 Session Stop Time : 1143 Total Time: 47 minutes Amanda Soto PT [facility] History of Present illness Narrative* Amanda Soto, PT - 03/25/2025 11:40 AM EDT Episode Visit Count: 12 Therapist That Will Accept/Oversee The Plan Of Care: Amanda Soto Start of Care Date: 01/06/25 Onset Date: 08/14/24 (second week of August) Plan of Care Certification Date: 01/06/25 Next Certification Due Date: 03/27/25 Patient Identified by Name and Date of : Yes [facility] PHYSICAL THERAPY WOUND TREATMENT NOTE ASSESSMENT: Mary Alice Ga tolerated the session with less pain response than last session. She continues to be very sensitive to active wound care efforts, but pain is minimized with Lidocaine.Subtle new epithelial migration occurring around the proximal wound rim and also new bridging of the posterior rim. Denudement of the distal rim making the wound a little longer. She demonstrated difficulty with continued marbling of fibrotic/necrotic tissue in the wound bed and heavy drainage. Thepatient will continue to benefit from ongoing skilled physical therapy to progress toward set goals, optimizing wound healing potential. PLAN FOR NEXT VISIT: continue with active wound care. Recheck/progress note next session SUBJECTIVE: pt running late. States she has had a rough time. Spouse back in hospital after having several more falls and now a broken foot. Patient states she is exhausted but once a rehab facility is figured out, feels like she can rest a bit. States R LE still very painful. Had drainage strike-through but then it stabilized so she didnt remove it Pain Tool: Verbal (Numeric Rating or Visual Analog Scale) Pain Level: 5 Pain Location: Leg-Right Description: Sore, Tenderness, Aching Duration: Continuous Intervention/Comfort measure: Medication, Reposition, Relaxation, Distractions, Emotional Support/Reassurance, Positioning, Other: See comment (elevation, compression) Response To Pain Intervention: 7-8. sore OBJECTIVE: Patient presents for follow-up wound care treatment with the compression dressing intactand in good position. Strike-through drainage of the anterior ankle crease noted. Gait is mod-I with her Rollator. WOUND STATUS: Wound 02/29/24 1600 Venous Ulcer Calf Distal;Right;Lateral (Active) Assessments 03/25/2025 11:00 AM Site Assessment Red;Yellow;White;Arroyo Elif-Wound Assessment Erythematous;Fragile;Hyperpigmented;Maceration;Painful Wound Length (cm) 9.5 cm Wound Width (cm) 6.5 cm Wound Surface Area (cm^2) 61.75 cm^2 Wound Depth (cm) 0.2 cm Wound Volume (cm^3) 12.35 cm^3 Wound Healing % -142 Drainage Description Serosanguineous;Purulent Drainage Amount Large with Strikethrough Odor None Elif-Wound Treatment Vaseline;Zinc Oxide;Betadine;Gentian Arlene Treatments Cleansed;Mechanical Debridement;PT Compression;PT Debridement;PT Mist Therapy Dressing Changed Changed State of Healing Non-healing;Early/partial granulation Wound Bed Granulation (%) 65 % Wound Bed Slough (%) 35 % Non-staged Wound Description Partial thickness No associated orders. TREATMENT: Conservative Sharp Debridement <20cm (43997): 5 mm curette used to selectively remove slough andscore fibrotic tissue throughout the wound bed as able and tolerated. Skilled interventions: -Knowledge of tissue anatomy and wound care. -Skilled judgment was provided after wound assessment in selection of appropriate interventions. -Skilled hands-on technique for active wound care/sharp debridement with appropriate instruments todebride/remove devitalized and/or necrotic tissue to promote wound healing. -Assessment of pain tolerance throughout the session--use of topical Lidocaine throughout the session to minimize pain -<20cm2 of non-viable/necrotic tissue was removed from the wound bed Nonselective Debridement (49091): dressings removed. Cleansed the RIGHT LE with warm soapy water with chlorhexidine. Mechanical efforts via gauze swiping to remove elif-wound scales, loose slough on the wound bed, peeling tissue/exudative crust of the direct elif-wound and reduce drainage accumulation and bio-burden on the wound surface and direct elif-wound. Skilled interventions: -Skilled knowledge of wound care and skilled application of knowledge for optimal wound healing environment and preventing/ minimizing adverse side effects. -Skilled education on rationale for dressing choice for reinforcement and improved compliance at home. -Skilled judgement and knowledge for optimization of wound care and skin integrity. -Skilled gentle cleansing and mechanical debridement to remove loose non-viable tissue, reduce bio-burden, and improve global skin integrity. -Dressing management/ application: LE recleansed with NS and blotted dry. Global Vaseline. Wound bed and wound edges swiped with iodine. Gentian Arlene to the elif-wound + Triple antibiotic ointment + Promogran + Acticoat + compression dressing as below. Modalities: Noncontact Ultrasound MIST: 15 min to the RIGHT LE wound Skilled interventions: -Proper administration and selection of modality based on clinical presentation, deficits, and needs -Patient response monitored throughout treatment Compression Therapy (Multilayer Venous Wound Compression System) (49614): Skilled interventions: -Skilled knowledge of wound care and skilled application of knowledge for optimal wound healing environment and preventing/ minimizing adverse side effects. -Skilled education on rationale for dressing choice for reinforcement and improved compliance at home. -Compression dressing Profore Lite (20-30mmHg) applied to Right LE with extra 4x4 gauze + DryMax and ABD pad x 2 between layers for increased drainage support. -Toes are warm and pink before and post boot application. -Reinforced that it she exhibits a change in color to the extremity, change in temperature, increased pain, or the dressing becomes wet (drainage strike- through or external soiling), the patient was instructed to remove the dressing and apply a cover dressing and ANTONIO wrap until she can be seen again by this PT or the wound center. Patient voices understanding with intent to comply. Post Treatment/Symptom(s): See above Billing: Noncontact Ultrasound Mist (86410): no charge (bundled) Selective Sharp Debridement <20cm (92924): 1 unit Nonselective debridement (79638): no charge (bundled) Multi-Layer Venous Wound Compression System (92067): 1 unit (untimed) Session Start Time : 1043 Session Stop Time : 1140 Total Time: 57 minutes Amanda Soto PT [facility] 03-19-[facility] History of Present illness Narrative* Amanda Soto, PT - 03/19/2025 1:35 PM EDT Episode Visit Count: 11 Therapist That Will Accept/Oversee The Plan Of Care: Amanda Soto Start of Care Date: 01/06/25 Onset Date: 08/14/24 (second week of August) Plan of Care Certification Date: 01/06/25 Next Certification Due Date: 03/27/25 Patient Identified by Name and Date of : Delio [facility] PHYSICAL THERAPY WOUND TREATMENT NOTE ASSESSMENT: Mary Alice Ga tolerated the session with expected pain response during active wound care. Pain is minimized with topical lidocaine. She demonstrated difficulty with heavy drainage, minor odor, and increased denudement of the wound rim. Also showing increase in width measures this date. The posterior wound rim does appear to be closing in, as smaller areas are being broken off separate due to epithelial bridging. The patient will continue to benefit from ongoing skilled physical therapy to address her RIGHT LE wound and promote closure. PLAN FOR NEXT VISIT: continue with active wound care, serial debridements warranted. Consider using Endoform when less necrotic/slough. SUBJECTIVE: pt cancelled yesterday due to not feeling well. Patient states she is exhausted. She ishaving trouble caring for her spouse. Spouse has fallen 3x this week. Patient states the R leg is still painful, but better. Had to cancel her ID appt as well. Pain Tool: Verbal (Numeric Rating or Visual Analog Scale) Pain Level: 5 Pain Location: Leg-Right Description: Sore, Tenderness, Burning Duration: Continuous Intervention/Comfort measure: Medication, Reposition, Relaxation, Distractions, Emotional Support/Reassurance, Positioning, Other: See comment (leg elevation and compression) Response To Pain Intervention: 8/10 burning, sore, achy OBJECTIVE: Patient presents for follow-up wound care treatment with the compression dressing intact. Strike-through drainage noted on the anterior ankle crease. Gait is labored due to RIGHT LE pain and spinal/orthopedic issues. WOUND STATUS: Wound 02/29/24 1600 Venous Ulcer Calf Distal;Right;Lateral (Active) Assessments 03/19/2025 12:00 PM Site Assessment Red;Yellow;Arroyo;Burgundy;Linares Elif-Wound Assessment Erythematous;Fragile;Hyperpigmented;Maceration;Painful Wound Length (cm) 9 cm Wound Width (cm) 7 cm Wound Surface Area (cm^2) 63 cm^2 Wound Depth (cm) 0.2 cm Wound Volume (cm^3) 12.6 cm^3 Wound Healing % -147 Drainage Description Serosanguineous;Purulent;Other (Comment) (brownish hue) Drainage Amount Large with Strikethrough Odor Mild Elif-Wound Treatment Vaseline;Zinc Oxide;Betadine;Gentian Arlene Treatments Cleansed;Mechanical Debridement;PT Compression;PT Debridement;PT Mist Therapy Dressing Changed Changed State of Healing Non-healing;Early/partial granulation Wound Bed Granulation (%) 70 % Wound Bed Slough (%) 30 % (slough, fibrotic stranding, central necrotic (brown/burgundy)) Non-staged Wound Description Partial thickness No associated orders. TREATMENT: Conservative Sharp Debridement <20cm (15567): 5 mm curette used to selectively remove slough andscore fibrotic tissue throughout the wound bed as able and tolerated. Additional debridement efforts with a scalpel to more selectively reduce fibrotic bands. Skilled interventions: -Knowledge of tissue anatomy and wound care. -Skilled judgment was provided after wound assessment in selection of appropriate interventions. -Skilled hands-on technique for active wound care/sharp debridement with appropriate instruments todebride/remove devitalized and/or necrotic tissue to promote wound healing. -Assessment of pain tolerance throughout the session--use of topical Lidocaine throughout the session to minimize pain -<20cm2 of non-viable/ necrotic tissue was removed from the wound bed Nonselective Debridement (88699): dressings removed. Cleansed the RIGHT LE with warm soapy water with chlorhexidine. Mechanical efforts via gauze swiping to remove elif-wound scales, loose slough on the wound bed, peeling tissue/exudative crust of the direct elif-wound and reduce drainage accumulation and bio-burden on the wound surface and direct elif-wound. Skilled interventions: -Skilled knowledge of wound care and skilled application of knowledge for optimal wound healing environment and preventing/ minimizing adverse side effects. -Skilled education on rationale for dressing choice for reinforcement and improved compliance at home. -Skilled judgement and knowledge for optimization of wound care and skin integrity. -Skilled gentle cleansing and mechanical debridement to remove loose non-viable tissue, reduce bio-burden, and improve global skin integrity. -Dressing management/ application: LE recleansed with NS and blotted dry. Global Vaseline. Wound bed and wound edges swiped with iodine. Gentian Arlene to the elif-wound + Triple antibiotic ointment + Promogran + Acticoat + compression dressing as below. Modalities: Noncontact Ultrasound MIST: 15 min to the RIGHT LE wound Skilled interventions: -Proper administration and selection of modality based on clinical presentation, deficits, and needs -Patient response monitored throughout treatment Compression Therapy (Multilayer Venous Wound Compression System) (68226): Skilled interventions: -Skilled knowledge of wound care and skilled application of knowledge for optimal wound healing environment and preventing/ minimizing adverse side effects. -Skilled education on rationale for dressing choice for reinforcement and improved compliance at home. -Compression dressing Profore Lite (20-30mmHg) applied to Right LE with DryMax and ABD pad between layers for increased drainage support. -Toes are warm and pink before and post boot application. -Reinforced that it she exhibits a change in color to the extremity, change in temperature, increased pain, or the dressing becomes wet (drainage strike- through or external soiling), the patient was instructed to remove the dressing and apply a cover dressing and ANTONIO wrap until she can be seen again by this PT or the wound center. Patient voices understanding with intent to comply. Post Treatment/Symptom(s): See above Billing: Noncontact Ultrasound Mist (46242): no charge (bundled) Selective Sharp Debridement <20cm (09620): 1 unit Nonselective debridement (21674): no charge (bundled) Multi-Layer Venous Wound Compression System (11239): 1 unit (untimed) Session Start Time : 1138 Session Stop Time : 1232 Total Time: 54 minutes Amanda Soto PT documented [facility] 03[facility] History of Present illness Narrative* Amanda Soto, PT - 03/11/2025 11:42 AM EDT Episode Visit Count: 10 Therapist That Will Accept/Oversee The Plan Of Care: Amanda Soto Start of Care Date: 01/06/25 Onset Date: 08/14/24 (second week of August) Plan of Care Certification Date: 01/06/25 Next Certification Due Date: 03/27/25 Patient Identified by Name and Date of : Yes [facility] PHYSICAL THERAPY WOUND TREATMENT NOTE ASSESSMENT: Mary Alice Ga tolerated the session with discomfort associated with direct wound care. Pain reduced with use of topical lidocaine throughout the session. She demonstrated difficultywith a large wound to her RIGHT lateral lower leg with scattered necrotic tissue and fibrotic bands. Sensitivity limits full debridement efforts. Improvement of the posterior wound rim with flattening of the wound bed (reduced raised appearance and less depth at the perimeter) and new epithelial migration of the distal posterior rim. The patient will continue to benefit from ongoing skilled physical therapy to further address the wound and further promote optimized wound healing potential. PLAN FOR NEXT VISIT: continue with active wound care SUBJECTIVE: pt still c/o high levels of pain and reduced sleeping tolerance. Does feel a little better though. Pain Tool: Verbal (Numeric Rating or Visual Analog Scale) Pain Level: 5 Pain Location: Leg-Right Description: Burning, Sore, Tenderness Duration: Continuous Intervention/Comfort measure: Medication, Reposition, Relaxation, Distractions, Emotional Support/Reassurance, Positioning, Other: See comment (compression and elevation) Response To Pain Intervention: ; burning, sore OBJECTIVE: Patient presents for follow-up wound care treatment with the compression dressing intact. The dressing is in good position/condition. No strike-through drainage noted. Patient's gait is mod-I with her Rollator, mildly antalgic but challenged by significant trunk shift/scoliosis. WOUND STATUS: Wound 02/29/24 1600 Venous Ulcer Calf Distal;Right;Lateral (Active) Assessments 03/11/2025 11:00 AM Site Assessment Red;Yellow;White Elif-Wound Assessment Edema;Fragile;Hyperpigmented;Scarred Wound Length (cm) 9 cm Wound Width (cm) 6 cm Wound Surface Area (cm^2) 54 cm^2 Wound Depth (cm) 0.2 cm Wound Volume (cm^3) 10.8 cm^3 Wound Healing % -112 Drainage Description Serosanguineous;Purulent Drainage Amount Large Odor None Elif-Wound Treatment Vaseline;Zinc Oxide;Betadine Treatments Cleansed;Mechanical Debridement;PT Debridement;PT Compression;PT Mist Therapy Dressing Changed Changed State of Healing Non-healing;Early/partial granulation Wound Bed Granulation (%) 75 % Wound Bed Slough (%) 25 % Non-staged Wound Description Partial thickness No associated orders. TREATMENT: Conservative Sharp Debridement <20cm (79381): 5 mm curette used to selectively remove slough andscore fibrotic tissue throughout the wound bed as able and tolerated. Skilled interventions: -Knowledge of tissue anatomy and wound care. -Skilled judgment was provided after wound assessment in selection of appropriate interventions. -Skilled hands-on technique for active wound care/sharp debridement with appropriate instruments todebride/remove devitalized and/or necrotic tissue to promote wound healing. -Assessment of pain tolerance throughout the session--use of topical Lidocaine throughout the session to minimize pain -<20cm2 of non-viable/ necrotic tissue was removed from the wound bed Nonselective Debridement (27917): dressings removed. Cleansed the RIGHT LE with warm soapy water with chlorhexidine. Mechanical efforts via gauze swiping to remove elif-wound/global scales as able, loose slough on the wound bed, peeling tissue/exudative crust of the direct elif-wound and reduce drainage accumulation and bio-burden on the wound surface and direct elif-wound. Skilled interventions: -Skilled knowledge of wound care and skilled application of knowledge for optimal wound healing environment and preventing/ minimizing adverse side effects. -Skilled education on rationale for dressing choice for reinforcement and improved compliance at home. -Skilled judgement and knowledge for optimization of wound care and skin integrity. -Skilled gentle cleansing and mechanical debridement to remove loose non-viable tissue, reduce bio-burden, and improve global skin integrity. -Dressing management/ application: LE recleansed with NS and blotted dry. Global Vaseline. Wound bed and wound edges swiped with iodine. Zinc oxide to the elif- wound + Triple antibiotic ointment + Promogran + Acticoat + compression dressing as below. Modalities: Noncontact Ultrasound MIST: 15 min to the RIGHT LE wound Skilled interventions: -Proper administration and selection of modality based on clinical presentation, deficits, and needs -Patient response monitored throughout treatment Compression Therapy (Multilayer Venous Wound Compression System) (94438): Skilled interventions: -Skilled knowledge of wound care and skilled application of knowledge for optimal wound healing environment and preventing/ minimizing adverse side effects. -Skilled education on rationale for dressing choice for reinforcement and improved compliance at home. -Compression dressing Profore Lite (20-30mmHg) applied to Right LE with DryMax and ABD pad between layers for increased drainage support. -Toes are warm and pink before and post boot application. -Reinforced that it she exhibits a change in color to the extremity, change in temperature, increased pain, or the dressing becomes wet (drainage strike- through or external soiling), the patient was instructed to remove the dressing and apply a cover dressing and ANTONIO wrap until she can be seen again by this PT or the wound center. Patient voices understanding with intent to comply. Post Treatment/Symptom(s): See above Billing: Noncontact Ultrasound Mist (80985): no charge (bundled) Selective Sharp Debridement <20cm (89051): 1 unit Nonselective debridement (54446): no charge (bundled) Multi-Layer Venous Wound Compression System (89940): 1 unit (untimed) Session Start Time : 1036 Session Stop Time : 1142 Total Time: 66 minutes Amanda Soto PT [facility]06-30-[facility] History of Present illness Narrative* Amanda Soto, PT - 03/03/2025 10:33 AM EDT Images from the original note were not included. Episode Visit Count: 9 Therapist That Will Accept/Oversee The Plan Of Care: Amanda Soto Start of Care Date: 01/06/25 Onset Date: 08/14/24 (second week of August) Plan of Care Certification Date: 01/06/25 Next Certification Due Date: 03/27/25 Patient Identified by Name and Date of : Yes [facility] PHYSICAL THERAPY WOUND TREATMENT AND PROGRESS REPORT PLAN OF CARE UPDATE: Mary Alice Ga demonstrates minimal improvement in wound healing evidenced by less drainage, resolution of purulent drainage, and early epithelial migration on the wound periphery and on an epithelial mass in the distal area of the wound. Patient continues to have high levels of pain, but somewhat improved post antibiotics. The patient has progressed toward goals. Patient continues to present with impairments in wound healing that interfere with ADLs/IADLs, increased care needs, pain that limits ADLs and sleep, and she remains at risk of infection due to having an open wound. Continued wound care is warranted and necessary to further address the wound and promote optimal healing potential. The patient will benefit from continued skilled therapy services to meet the updated goals for thisplan of care as noted below. Goals for Episode of Care: created on 01/06/25 through 07/05/25 UPDATED 03/03/25 Debride 50% of non-viable tissue from the wound bed: MET Eliminate all nonviable tissue from the wound bed: not met Decrease overall wound surface area (length x width) by 75% for the wound: not met Achieve full closure of wound on the RIGHT lateral lower leg: not met Decrease wound exudate from a copious amount to nil amount: not met, drainage is moderate to heavy.Resolved purulence this date. Decrease edema from 1 to 2 cm for vascular decongestion and reduced drainage.: not formally retested this date. Patient compliant with and tolerating compression dressings. Decrease pain complaints to 2/10 when most severe: not met, pain remains moderate to high Patient/ Caregiver will be able to demonstrate competence with dressing management: met: compliant with and tolerating current dressing regimen. Modifications to occur with wound changes/healing. PLAN: Follow up for one visit(s) per week for sixteen weeks for Selective debridement <20cm, Selective debridement >20cm, Nonselective debridement, Noncontact Ultrasound Mist, Compression Therapy (dressing), Patient/ Caregiver Education, and Self Care/ Home Management SUBJECTIVE: PICC line is out. Dr Blackmon had her stop the IV infusion early. Patient continues to c/omoderate to high pain. Side effects of antibiotics are improving. Pain Tool: Verbal (Numeric Rating or Visual Analog Scale) Pain Level: 5 Pain Location: Leg-Right Description: Burning, Sore, Aching, Tenderness Duration: Continuous Intervention/Comfort measure: Medication, Relaxation, Reposition, Distractions, Emotional Support/Reassurance, Positioning, Other: See comment (compression and elevation) Response To Pain Intervention: 04/13: burning PROMIS Scales 06/26/2024 05/28/2024 04/30/2024 Higher is Better Phys Func - T Score 30 (moderate dysfunction) 29 (severe dysfunction) 43 (mild dysfunction) Phys Func - Percentile 2 2 24 Self-Eff Symptom - T Score 49 (Average) 48 (Average) Self-Eff Symptom - Percentile 46 42 Proxy-reported 02/17/2025 01/06/2025 Lower is Better Pain Interference - T Score 65 (moderate) 68 (moderate) Pain Interference - Percentile 7 4 T-scores: mean of general population = 50. 5 points is clinically meaningfully difference Percentiles provide an indication of how the patient's score ranks in relation to the general population. Higher percentile rankings indicate better function/quality of life. 50th percentile is the average of the general population and indicates half of respondents had a worse score. OBJECTIVE MEASURES WITH LEVEL OF FUNCTION: Patient presents for follow-up wound care treatment with a compression dressing intact from the wound center. Gait is mod-I with a Rollator. Antalgic due to OA/spine issues and RIGHT LE wound pain. WOUND STATUS: Wound 02/29/24 1600 Venous Ulcer Calf Distal;Right;Lateral (Active) Assessments 03/03/2025 10:00 AM Site Assessment Red;Yellow Elif-Wound Assessment Edema;Fragile;Hyperpigmented;Scarred Wound Length (cm) 9.6 cm Wound Width (cm) 6 cm Wound Surface Area (cm^2) 57.6 cm^2 Wound Depth (cm) 0.2 cm Wound Volume (cm^3) 11.52 cm^3 Wound Healing % -126 Drainage Description Serosanguineous Drainage Amount Large Odor None Elif-Wound Treatment Vaseline;Zinc Oxide;Betadine Treatments Cleansed;Mechanical Debridement;PT Debridement;PT Compression;PT Mist Therapy Dressing Changed Changed State of Healing Non-healing;Early/partial granulation Wound Bed Granulation (%) 75 % Wound Bed Slough (%) 25 % Non-staged Wound Description Partial thickness No associated orders. TREATMENT: Conservative Sharp Debridement <20cm (75938): 5 mm curette used to selectively remove slough andscore fibrotic tissue throughout the wound bed as able and tolerated. Skilled interventions: -Knowledge of tissue anatomy and wound care. -Skilled judgment was provided after wound assessment in selection of appropriate interventions. -Skilled hands-on technique for active wound care/sharp debridement with appropriate instruments todebride/remove devitalized and/or necrotic tissue to promote wound healing. -Assessment of pain tolerance throughout the session--use of topical Lidocaine to minimize pain -<20cm2 of non-viable/ necrotic tissue was removed from the wound bed Nonselective Debridement (27442): dressings removed. Cleansed the RIGHT LE with warm soapy water with chlorhexidine. Mechanical efforts via gauze swiping to remove elif-wound/global scales as able, loose slough on the wound bed, peeling tissue/exudative crust of the direct elif-wound and reduce drainage accumulation and bio-burden on the wound surface and direct elif-wound. Skilled interventions: -Skilled knowledge of wound care and skilled application of knowledge for optimal wound healing environment and preventing/ minimizing adverse side effects. -Skilled education on rationale for dressing choice for reinforcement and improved compliance at home. -Skilled judgement and knowledge for optimization of wound care and skin integrity. -Skilled gentle cleansing and mechanical debridement to remove loose non-viable tissue, reduce bio-burden, and improve global skin integrity. -Dressing management/ application: LE recleansed with NS and blotted dry. Global Vaseline. Wound bed and wound edges swiped with iodine. Zinc oxide to the elif- wound + Triple antibiotic ointment + Promogran + Acticoat + compression dressing as below. Modalities: Noncontact Ultrasound MIST: 15 min to the RIGHT LE wound Skilled interventions: -Proper administration and selection of modality based on clinical presentation, deficits, and needs -Patient response monitored throughout treatment Compression Therapy (Multilayer Venous Wound Compression System) (85183): Skilled interventions: -Skilled knowledge of wound care and skilled application of knowledge for optimal wound healing environment and preventing/ minimizing adverse side effects. -Skilled education on rationale for dressing choice for reinforcement and improved compliance at home. -Compression dressing Profore Lite (20-30mmHg) applied to Right LE with DryMax and ABD pad between layers for increased drainage support. -Toes are warm and pink before and post boot application. -Reinforced that it she exhibits a change in color to the extremity, change in temperature, increased pain, or the dressing becomes wet (drainage strike- through or external soiling), the patient was instructed to remove the dressing and apply a cover dressing and ANTONIO wrap until she can be seen again by this PT or the wound center. Patient voices understanding with intent to comply. Post Treatment/Symptom(s): See above Billing: Noncontact Ultrasound Mist (66686): no charge (bundled) Selective Sharp Debridement <20cm (64041): 1 unit Nonselective debridement (98473): no charge (bundled) Multi-Layer Venous Wound Compression System (42515): 1 unit (untimed) Session Start Time : 932 Session Stop Time : 1029 Total Time: 56 minutes Amanda Soto, PT documented [facility]06-[facility] Telephone encounter Note * Telephone Encounter - Nikki Beth LPN - 02/25/2025 3:57 PM EDT Per Lorri-- PICC line care Cefepime changed to zosyn Labs rev and discussed. Plts low at 89 and WBC 3.[address] Rodriguez office to get baseline platelet and WBC. If dropped significantly then stop zosyn and remove line. Repeat labs on Follow up in the [facility] w ID in 3 weeks Continue aggressive wound care Side effects, pros, cons of the antibiotics as well as the PICC line were discussed in details withthe patient. All questions answered. The patient reports that she has a crushed vertebrae in her back that needs back surgery that cannot be accomplished till the infection is treated I discussed the plan in detail with the patient and the patient verbalizes understanding and is in agreement. Leny from Michael's office sent me a secure chat message stating Lorri gave orders to stop the zosyn and nursing to remove the picc line. She's going to [facility]. I also called Mary with nursing and Tim with [facility] and gave the above orders. [facility]06-[facility] Miscellaneous Notes* Telephone Encounter - Nikki Beth LPN - 02/25/2025 3:57 PM EDT Per Lorri-- PICC line care Cefepime changed to zosyn Labs rev and discussed. Plts low at 89 and WBC 3.[address] Rodriguez office to get baseline platelet and WBC. If dropped significantly then stop zosyn and remove line. Repeat labs on Follow up in the [facility] w ID in 3 weeks Continue aggressive wound care Side effects, pros, cons of the antibiotics as well as the PICC line were discussed in details withthe patient. All questions answered. The patient reports that she has a crushed vertebrae in her back that needs back surgery that cannot be accomplished till the infection is treated I discussed the plan in detail with the patient and the patient verbalizes understanding and is in agreement. [facility] sent me a secure chat message stating Lorri gave orders to stop the zosyn and nursing to remove the picc line. She's going to fax the summary visit to [facility]. I also called Mary with nursing and Tim with [facility] and gave the above orders. * Telephone Encounter - Nikki Beth LPN - 02/25/2025 9:10 AM EDT February 24 labs reviewed, no changes Wbc low at 3.5, plt low at 89 No comparisons The results were attached to the M drive Mary Alice has an appt today with Lorri at [facility]. She's currently on Zosyn 3.375g iv q6 with a stop date of March 03. * Telephone Encounter - Yamile Hoover RN - 02/18/2025 5:06 PM EDT Mary from [facility] called [phone] re: SOC for tomorrow as patient will miss doses. I lmovm and provided my direct line for call back. * Telephone Encounter - Yamile Hoover RN - 02/18/2025 2:09 PM EDT HC: [facility] [phone] * Telephone Encounter - Yamile Hoover RN - 02/17/2025 1:35 PM EDTSummary: NEW COPAT-MED CHANGE DX: R LOWER LEG INFECTION TX: ZOSYN 3.375GM IV Q6 STOP: 14 DAYS 03-03-25 LABS: CBC/D ALT CREAT QMON FU: [facility] PICC and first dose scheduled for 02-18-25 at 1:00. LMOVM for Whit at [facility] for SOC . * Telephone Encounter - Lexie Gentile - 02/17/2025 11:14 AM EDT I called Mary Alice and she will call [facility] for scheduling. Lexie Gentile * Telephone Encounter - Lexie Gentile - 02/17/2025 11:09 AM EDT I talked to [facility] Whit and Eva is good with cost of Ángela working on nursing. Lexie Gentile * Telephone Encounter - Lexie Gentile - 02/17/2025 10:45 AM EDT I called [facility] Whit back to see where things are standing and waiting for a call back. Lexie Gentile * Telephone Encounter - Lexie Gentile - 02/17/2025 10:36 AM EDT Jerri from the [facility] called to see how things are moving with the PICC placement for Mary Alice because she called the [facility] said she feels her leg is getting worse. . I told Jerri I would check with [facility] and let Mary Alice know. . * Telephone Encounter - Yamile Hoover, RN - 02/13/2025 11:14 AM EDT Per email RS recommended two other IV abx options. Whit at [facility] checking cost * Telephone Encounter - Yamile Hoover RN - 02/12/2025 4:37 PM EDT EM RS: Seen in [facility] yesterday. Cefepime 2gm iv q8 for Rt lower leg inf. Per [facility], patient cannot afford IV abx cost of $652.54/week (she doesn't have insurance that will cover home IV abx). What would you like to do? * Telephone Encounter - Yamile Hoover RN - 02/11/2025 5:01 PM EDTSummary: COPAT ACTION-FOR IDC USE ONLY RS-[facility] DX: R LOWER LEG INFECTION TX: CEFEPIME 2GMIV Q8 STOP: 14 DAYS LABS: CBC/D ALT CREAT QMON FU: [facility] 02-25-25 Intake for pharmacy and nursing faxed to [facility] for benefit review. Notify IR when ok for them to schedule picc placement and first dose. documented in this encounterGal[facility]06-24-[facility]25 [facility] 02-25-2025 History of Present illness Narrative* Nayan Blackmon MD - 02/25/2025 2:36 PM EDT Images from the original note were not included. 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 Plts low at 89 and WBC 3.[address] Rodriguez office to get baseline platelet and WBC. If dropped significantly then stop zosyn and remove line. Repeat labs on Follow up in the [facility] w ID in 3 weeks Continue aggressive wound care Side effects, pros, cons of the antibiotics as well as the PICC line were discussed in details withthe patient. All questions answered. The patient reports that she has a crushed vertebrae in her back that needs back surgery that cannot be accomplished till the infection is treated I discussed the plan in detail with the patient and the patient verbalizes understanding and is in agreement. INTERVAL HISTORY: ROS done with pt and negative unless stated. Diarrhea till yesterday but is better today. No fevers. Wound looks better. No purulent drainage She gained 7 pounds weight in a day or 2 this week. MEDICATIONS: romosozumab-aqqg (EVENITY SUBCUTANEOUS) Inject subcutaneously. Given by Infusion center [facility] Cholecalciferol, Vitamin D3, (VITAMIN D) 25 mcg (1,000 unit) cap Take 1,000 Units by mouth once daily. calcium phosphate tribasic (TUMS GUMMY) 250 mg calcium chew Take by mouth. Patient takes 1000mg twice daily multivitamin (MULTIPLE VITAMINS) tablet Take 1 tablet by mouth once daily. gabapentin (NEURONTIN) 300 mg capsule 300 mg two times a day. (Patient not taking: Reported on 02/11/2025) traMADol (ULTRAM) 50 mg tablet Take 1 tablet by mouth every 6 hours as needed. methocarbamol (ROBAXIN) 500 mg tablet Take 1 tablet by mouth two times a day. (Patient not taking: Reported on 02/11/2025) LASIX 40 mg tablet Take 40 mg by mouth two times a day. acetaminophen (TYLENOL) 325 mg cap Take by mouth. alendronate (FOSAMAX) 70 mg tablet Take 1 tablet by mouth one time a week. (Patient not taking: Reported on 06/12/2024) anastrozole (ARIMIDEX) [address] (PROTONIX) 40 mg tablet Take 1 tablet by mouth once daily. nadolol (CORGARD) 20 mg tablet TAKE ONE TABLET BY MOUTH EVERY DAY potassium chloride ER (K-DUR, KLOR-CON) 20 mEq tablet Take 20 mEq by mouth two times a day. diclofenac sodium (VOLTAREN) 1 % topical gel Apply 2 g to affected area four times daily as needed. spironolactone (ALDACTONE) 50 mg tablet Take 1 tablet by mouth twice daily. PHYSICAL EXAM: Vital signs: stable, afeb General: alert, oriented, NAD Lungs: bilaterally clear to auscultation Heart: regular rate and rhythm Abdomen: soft, non tender, non distended, BS+ Extremities: no swollen joints Skin: no rash R leg wound appears better. No purulent drainage Lab data: reviewed WBC Date Value 05/12/2017 7.08 k/uL 12/22/2016 4.7 x10(3) 04/29/2011 4.04 k/uL Hemoglobin (g/dL) Date Value 05/12/2017 13.5 12/22/2016 12.7 04/29/2011 14.1 PT INR (no units) Date Value 05/12/2017 1.1 12/23/2008 3.7 08/26/2008 2.9 INR (no units) Date Value 12/22/2016 1.1 06/15/2016 1.2 Sodium (mmol/L) Date Value 05/12/2017 136 12/22/2016 134 06/15/2016 128 Potassium (mmol/L) Date Value 05/12/2017 3.8 12/22/2016 4.1 06/15/2016 3.5 CO2 (mmol/L) Date Value 05/12/2017 27 12/22/2016 22 06/15/2016 22 BUN (mg/dL) Date Value 05/12/2017 18 12/22/2016 30 06/15/2016 7 Creatinine (mg/dL) Date Value 05/12/2017 0.74 12/22/2016 0.64 06/15/2016 0.54 AST (U/L) Date Value 05/12/2017 28 12/22/2016 34 04/29/2011 141 ALT (U/L) Date Value 05/12/2017 21 12/22/2016 25 04/29/2011 56 Bilirubin, Total (mg/dL) Date Value 05/12/2017 1.3 12/22/2016 1.9 04/29/2011 2.3 Alkaline Phosphatase (U/L) Date Value 05/12/2017 154 12/22/2016 141 04/29/2011 138 WSR (mm/hr) Date Value 07/12/2017 29 04/29/2011 14 Microbiology data: reviewed Imaging data: reviewed Nayan Blackmon MD Pager: * Leny Saenz RN - 02/25/2025 2:32 PM EDT Nursing Documentation Pertinent Medical History: Wound Etiology according to patient: Right lower leg wound - patient has had intermittently. This wound began Jun 2024 due to swelling, vascular ablation right lower leg, cirrhosis, LE Edema, liver disease with Pancreatitis, PE, breast cancer 2022 Patient arrived via: ambulatory with rollator Home Care Company/Nursing Facility: [facility] (IV therapy) Consent captured for debridement per (Provider) and good until Special Instructions (for example, patient stands at the bedside for exam/dressing): Anticoagulant Therapy: denies Living Situation (ie... 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 Provider seeing patient: Nayan Blackmon MD WOUND ASSESSMENT: Refer to Provider's Wound Assessment Note VASCULAR ASSESSMENT BY PROVIDER: N/A CHF History: denies Smoking: denies Education: EDEMA: Right foot: generalized Right Ankle: 4+ Right calf: generalized Left foot: generalized Left Ankle: 4+ Left Calf: 4+ Other: MEASUREMENTS: in CM Right Calf: 32.8 Right Ankle: 24.8 Left Calf: 33.5 Left Ankle: 23.4 Length: NEY'S - N/A Left: Right: Brachial Pressure: HR: WOUND PHOTOGRAPHY: No date taken: 02/11/2025 DEBRIDEMENT PROCEDURE BY PROVIDER: Anesthetic Used: N/A applied per dye room helper # Other procedure: Specimen collected: WOUND TREATMENT PER MD ORDER: Wounds cleansed by mechanical debridement to allow provider to visualize wound base 02/25/25 - Pt with complaints of diarrhea, decreased in appetite, and bilateral lower leg swelling. Pt stated that she 8 lb. increase in weight. ~ Call placed to Dr. Rodriguez office for previous CBC results. Dr Blackmon made aware of results, ordered pt to stop IV antibiotic therapy. Results from Dr. Rodriguez office as follows June 17, 2024 January 23, 2025 February 24, 2025 WBC 5.1 WBC 5.1 WBC 3.5 PLT 200 PLT 122 PLT 89 WOUND # 1 LOCATION: Right Lower Leg - Lateral (NEW Jun 2024 - blister) L: 9.2 cm x W: 7.3 cm x D: 0.3 cm Post Debridement Measurements: L: cm x W: cm x D: cm Cleansed with: vashe' Applied to elif-wound skin: edith cream Applied to wound bed: acticote, drawtex, drymax, Covered and secured with: abd pad, kerlix, tape Other: 3 Layer Profore COMPRESSION: Profore Multiple layer Application: A 3 layer system applied to the bilateral lower extremity(s). A layer of cast padding, crepe bandage, followed with a layer of coban and stockinet from behind the toes to 1 below the knee. Toes were warm and pink before and post application. + dorsal pedis pulse on palpation. It was demonstrated to the patient how to check for adequate circulation. If the patient exhibits a change in color to the extremity: change in temperature, increased pain,or the compression wrap becomes wet or to tight, the patient has been instructed to remove the wrapor go to the Emergency Department. Patient voices understanding with intent to comply. DME: [employer] , PH: [phone] SPECIAL NEEDS: Coordination of care Call to Dr. Rodriguez office, [facility] Emotional support N/A OR set-up N/A Media Producer N/A Incontinence needs N/A DISCHARGED in stable condition to: ambulatory with rollator PLAN/ORDERS: Return to the wound center to see Dr. Lorri ARAUJO (Infectious Disease) in [address] Blackmon discussed getting previous labwork from [place] Repeat bloodwork February Continue aggressive nutritional support for optimal wound healing STOP IV Zosyn [facility] of to remove PICC line EDUCATION: The patient/family was instructed how to cleanse the wound(s). Visual demonstration on how to applythe dressing with teach back method. Signs & symptoms of infection were reviewed: Increased redness, swelling, pain, green/yellow drainage, fever and/or chills would all need to be evaluated by a Physician. Patient received typed home-going wound care instructions and has expressed intent to comply. Due to the cold and flu season approaching us, if you have any symptoms such as a cough, fever, chills, nausea, vomiting, diarrhea, and/or body aches, please call and reschedule your appointment in the Wound Center. OTHER EDUCATION by RN: Wound care Education performed regarding lymphedema/edema: Elevation of extremity above the heart for 30 minutes three times daily and as needed Exercise such as writing the ABC's with your toes in the air, walking and/or calf pumps Wearing compression as ordered by provider Diet controlling of sodium as instructed by provider Use of medication to help control edema. ____ UNIVERSAL PROTOCOL / SAFETY CHECKLIST - N/A ____ Current HBOT Status: Active or Complete - see screening below WOUND CENTER HYPERBARIC OXYGEN THERAPY SCREENING 1. Is the patient diabetic? (If No, skip to question 5) No 5. Has the patient been diagnosed with osteomyelitis? No 6. Has the patient had a previous skin graft or flap at the wound? No 7. Has the patient had or been offered vascular intervention/evaluation? No 8. Does the patient have a wound at an amputation site? No 9. Has the patient had radiation therapy at the site of the problem? No If Yes to ANY of questions 5-9, consult the Hyperbaric Center Leny Saenz RN/DUNG documented in this encounterGal[facility]06-[facility]25 [facility] 02-25-[facility] Instructions* Patient Instructions* Leny Saenz RN - 02/25/2025 2:32 PM EDT WOUND CARE INSTRUCTIONS- Mary Alice Arechigai Wound location: Right Lower Lateral leg [facility] (IV therapy) Continue wound care as directed by Amanda Soto PT COMPRESSION keep dressing dry and intact until next wound care appointment. Compression wrap must be removed if: it becomes wet or soiled If you have numbness or tingling in your foot or toes If you have increased pain If toes become cold or discolored - Avoid sitting with legs in a dependent position or standing for long periods of time. - Attempt to lay flat and elevate your legs above the level of your heart 2-3 times daily, for 30 minutes at a time. - Be sure to continue walking and/or calf pumps and exercises to mimic writing the alphabet with your foot, as instructed - Control your sodium intake as instructed by provider - If it becomes necessary to remove the wrap, do so by unwinding it. Apply clean dressing as instructed and notify the wound care center. To give your wound the best chance to heal: - Eat three balanced meals daily focusing on the protein - Complete your wound care instructions as ordered - Vitamin C 500 mg twice daily - Multiple Vitamin Daily - Drink a protein shake daily - Premiere Clear or Glucerna for Diabetic patients, Nepro for renal patients and premiere for non-renal and non-diabetic patients Report any of the following signs and symptoms of infection to the Wound Center at [phone] or go to the Emergency Department: Fever or chills Increased drainage Green or yellow drainage Foul odor Increased pain Hardness around the wound Redness, warmth or swelling of the surrounding tissue Color change to the wound Any streaking coming from the wound When contacting the wound center at the ([phone]): Leave a message that includes your full name, birthday, phone number who your provider is and the reason for your call. During clinic hours we are with patients. A nurse will return your call within 24-48 hours in the order it was received. The wound center is closed weekends and on major holidays. If you call at that time we will return your call in the order that the calls were received at the soonest opportunity. If you have any signs of infection or need immediate attention then please go to the emergency department to be evaluated Thank you for your understanding and cooperation. If you call the wound center at the phone number provided above, please leave a detailed message that includes your full name, birthday, and phone number. We are seeing patients during the day, so wewill return your call within a 24-48 hr period in the order your call was received. Thank you for your cooperation and understanding. PLAN/ORDERS: Return to the wound center to see Dr. Lorri ARAUJO (Infectious Disease) in [address] Blackmon discussed getting previous labwork from [place] Repeat bloodwork February Continue aggressive nutritional support for optimal wound healing STOP IV [facility] of to remove PICC line Dr. Nayan Blackmon MD/jeremiah/dung documented in this encounterGalion [facility] Hospital06-24-2025 Telephone encounter Note * Telephone Encounter - Nikki Beth LPN - 02/25/2025 9:10 AM EDT February 24 labs reviewed, no changes Wbc low at 3.5, plt low at 89 No comparisons The results were attached to the M drive Mary Alice has an appt today with Lorri at [facility]. She's currently on Zosyn 3.375g iv q6 with a stop date of March 03. [facility]06-[facility] History of Present illness Narrative* Amanda Soto, PT - 02/24/2025 4:50 PM EDT Episode Visit Count: 8 Therapist That Will Accept/Oversee The Plan Of Care: Amanda Soto Start of Care Date: 01/06/25 Onset Date: 08/14/24 (second week of August) Plan of Care Certification Date: 01/06/25 Next Certification Due Date: 03/27/25 Patient Identified by Name and Date of : Yes [facility] PHYSICAL THERAPY WOUND TREATMENT NOTE ASSESSMENT: Mary Alicesara Ga tolerated the session with expected soreness/discomfort during direct wound care. Pain minimized with topical lidocaine with good success. Less pain overall experienced this date and increased tolerance to debridement efforts. New epithelial migration is noted in select areas of the wound, with small epithelial masses on the posterior wound now merged with the periphery and a strip of epithelial tissue on the anterior distal wound becoming wider and nearly merging with the wound periphery anteriorly. Edema is noted above her RIGHT dressing and of the LEFT LE-- pt feels could be related to antibiotic. She has a follow up with Dr Blackmon (ID) tomorrow. She demonstrated improvements in wound status as noted above. The patient will continue to benefit from ongoing skilled physical therapy to further address her wound and promote optimal healing potential. PLAN FOR NEXT VISIT: continue with active wound care, serial debridements warranted. Modify dressing application as waranted to optimize healing. SUBJECTIVE: pt c/o PICC line and antibiotic issues. States she is having issues with her spouse andjust feeling overwhelmed. Having diarrhea (which was told about prior to the antibiotic starting) and is not sleeping due to timing of the medications. Pain Tool: Verbal (Numeric Rating or Visual Analog Scale) Pain Level: 5 Pain Location: Leg-Right Description: Burning, Sore, Tenderness, Aching Duration: Continuous Intervention/Comfort measure: Medication, Reposition, Relaxation, Distractions, Emotional Support/Reassurance, Positioning, Other: See comment (compression and elevation) Response To Pain Intervention: 4/10--- slightly better with Lidocaine. Throbbing/burning/sore OBJECTIVE: Patient presents for follow-up wound care treatment with the compression dressing intactfrom last session. The dressing is intact and in good position. No drainage strike-through. WOUND STATUS: Wound 02/29/24 1600 Venous Ulcer Calf Distal;Right;Lateral (Active) Assessments 02/24/2025 4:30 PM Site Assessment Red;Yellow;Arroyo Elif-Wound Assessment Edema;Fragile;Hyperpigmented;Scarred Wound Length (cm) 9.4 cm Wound Width (cm) 6.4 cm Wound Surface Area (cm^2) 60.16 cm^2 Wound Depth (cm) 0.2 cm Wound Volume (cm^3) 12.032 cm^3 Wound Healing % -136 Drainage Description Serosanguineous Drainage Amount Large Odor None Elif-Wound Treatment Vaseline;Zinc Oxide;Betadine Treatments Cleansed;Mechanical Debridement;PT Debridement;PT Compression;PT Mist Therapy Dressing Changed Changed State of Healing Non-healing;Early/partial granulation Wound Bed Granulation (%) 70 % Wound Bed Slough (%) 30 % Non-staged Wound Description Partial thickness No associated orders. TREATMENT: Conservative Sharp Debridement <20cm (62654): 5 mm curette used to selectively remove slough andfibrotic tissue throughout the wound bed as able and tolerated. Skilled interventions: -Knowledge of tissue anatomy and wound care. -Skilled judgment was provided after wound assessment in selection of appropriate interventions. -Skilled hands-on technique for active wound care/sharp debridement with appropriate instruments todebride/remove devitalized and/or necrotic tissue to promote wound healing. -Assessment of pain tolerance throughout the session--use of topical Lidocaine to minimize pain -<20cm2 of non-viable/ necrotic tissue was removed from the wound bed Nonselective Debridement (09368): dressings removed. Cleansed the RIGHT LE with warm soapy water with chlorhexidine. Mechanical efforts via gauze swiping to remove elif-wound/global scales as able, loose slough on the wound bed, peeling tissue of the direct elif-wound and reduce drainage accumulation and bio-burden on the wound surface and direct elif-wound. Efforts to separate the slough from the wound edge also performed. Skilled interventions: -Skilled knowledge of wound care and skilled application of knowledge for optimal wound healing environment and preventing/ minimizing adverse side effects. -Skilled education on rationale for dressing choice for reinforcement and improved compliance at home. -Skilled judgement and knowledge for optimization of wound care and skin integrity. -Skilled gentle cleansing and mechanical debridement to remove loose non-viable tissue, reduce bio-burden, and improve global skin integrity. -Dressing management/ application: LE recleansed with NS and blotted dry. Global Vaseline. Wound bed and wound edges swiped with iodine. Zinc oxide to the elif- wound + Acticoat + folded 4 x 4 guaze +2 ABD pads + Conform to secure + Tubigrip size E toes to knee + 6 ANTONIO wrap toes to knee. Tubigrip also applied to her LEFT LE due to increased edema. Instructed patient remove the ANTONIO wrap and/or the LEFT Tubigrip if needed for comfort. Modalities: Noncontact Ultrasound MIST: 15 min to the RIGHT LE wound Skilled interventions: -Proper administration and selection of modality based on clinical presentation, deficits, and needs -Patient response monitored throughout treatment Compression Therapy (Multilayer Venous Wound Compression System) (35945): deferred application thisdate due to wound center/ID follow up tomorrow. Post Treatment/Symptom(s): See above Billing: Noncontact Ultrasound Mist (08523): no charge (bundled) Selective Sharp Debridement <20cm (47061): 1 unit Nonselective debridement (13746): no charge (bundled) Session Start Time : 1541 Session Stop Time : 1650 Total Time: 69 minutes Amanda Soto PT documented in this encounterGalion [facility] Hospital06-23-2025 [facility] 02-18-2025 Telephone encounter Note* Telephone Encounter - Yamile Hoover RN - 02/18/2025 5:06 PM EDT Mary from [facility] called [phone] re: SOC for tomorrow as patient will miss doses. I lmovm and provided my direct line for call back. [facility]06-17-[facility] Telephone encounter Note* Telephone Encounter - Yamile Hoover RN - 02/18/2025 2:09 PM EDT HC: [facility] [phone] [facility]06-17-[facility]25 [facility]06-16-[facility]25 [facility] 02-17-2025 History of Present illness Narrative* Amanda Soto, PT - 02/17/2025 4:27 PM EDT Episode Visit Count: 7 Therapist That Will Accept/Oversee The Plan Of Care: Amanda Soto Start of Care Date: 01/06/25 Onset Date: 08/14/24 (second week of August) Plan of Care Certification Date: 01/06/25 Next Certification Due Date: 03/27/25 Patient Identified by Name and Date of : Yes [facility] PHYSICAL THERAPY WOUND TREATMENT NOTE ASSESSMENT: Mary Alice Ga tolerated the session with discomfort. Topical lidocaine used with min relief. She demonstrated difficulty with a large RIGHT LE venous wound with minimal changes since initial visit. Less necrotic tissue is being noted and select areas of new/early epithelial migration. Pain remains severe. Patient to be getting a PICC line for IV antibiotics due to resistant infection. The patient will continue to benefit from ongoing skilled physical therapy to further addressthe RIGHT LE wound and promote optimal healing potential. PLAN FOR NEXT VISIT: continue with serial debridements and compression dressing SUBJECTIVE: pt nervous about tomorrow. Gets a PICC line for IV antibiotics. States the leg remains very painful that causes limited sleep tolerance. Pain Tool: Verbal (Numeric Rating or Visual Analog Scale) Pain Level: 6 Pain Location: Leg-Right Description: Burning, Sore, Throbbing Duration: Continuous Intervention/Comfort measure: Medication, Reposition, Relaxation, Distractions, Education, Emotional Support/Reassurance, Exercise, Positioning, Other: See comment (compression and elevation) Response To Pain Intervention: 04/13 burning, sore OBJECTIVE: Patient presents for follow-up wound care treatment with the compression dressing intactfrom the wound center. No strike-through drainage. Gait is mod-I with a Rollator. Antalgic gait dueto RIGHT LE pain and other arthritic/spinal issues. WOUND STATUS: Wound 02/29/24 1600 Venous Ulcer Calf Distal;Right;Lateral (Active) Assessments 02/17/2025 4:00 PM Site Assessment Red;Yellow;Arroyo;Linares Elif-Wound Assessment Edema;Fragile;Hyperpigmented;Scarred Wound Length (cm) 9.7 cm Wound Width (cm) 7.2 cm Wound Surface Area (cm^2) 69.84 cm^2 Wound Depth (cm) 0.2 cm Wound Volume (cm^3) 13.968 cm^3 Wound Healing % -174 Drainage Description Serosanguineous;Purulent;Yellow Drainage Amount Large Odor None Elif-Wound Treatment Vaseline;Zinc Oxide;Betadine Treatments Cleansed;Mechanical Debridement;PT Debridement;PT Compression;PT Mist Therapy Dressing Changed Changed State of Healing Non-healing;Early/partial granulation Wound Bed Granulation (%) 65 % Wound Bed Slough (%) 35 % (fibrotic and slough) Non-staged Wound Description Partial thickness No associated orders. TREATMENT: Conservative Sharp Debridement <20cm (85711): 5 mm curette used to selectively remove slough andfibrotic tissue throughout the wound bed as able. Skilled interventions: -Knowledge of tissue anatomy and wound care. -Skilled judgment was provided after wound assessment in selection of appropriate interventions. -Skilled hands-on technique for active wound care/sharp debridement with appropriate instruments todebride/remove devitalized and/or necrotic tissue to promote wound healing. -Assessment of pain tolerance throughout the session--use of topical Lidocaine to minimize pain -<20cm2 of non-viable/ necrotic tissue was removed from the wound bed Nonselective Debridement (28072): dressings removed. Cleansed the RIGHT LE with warm soapy water with chlorhexidine. Mechanical efforts via gauze swiping to remove elif-wound/global scales as able, loose slough on the wound bed, peeling tissue of the direct elif-wound and reduce drainage accumulation and bio-burden on the wound surface and direct elif-wound. Skilled interventions: -Skilled knowledge of wound care and skilled application of knowledge for optimal wound healing environment and preventing/ minimizing adverse side effects. -Skilled education on rationale for dressing choice for reinforcement and improved compliance at home. -Skilled judgement and knowledge for optimization of wound care and skin integrity. -Skilled gentle cleansing and mechanical debridement to remove loose non-viable tissue, reduce bio-burden, and improve global skin integrity. -Dressing management/ application: LE recleansed with NS and blotted dry. Global Vaseline. Wound bed and wound edges swiped with iodine. Zinc oxide to the elif- wound + Promogran to the wound bed + triple antibiotic ointment to the wound bed/wound edges + Acticoat + 4 x 4 guaze + compression dressing as below. Modalities: Noncontact Ultrasound MIST: 15 min to the RIGHT LE wound Skilled interventions: -Proper administration and selection of modality based on clinical presentation, deficits, and needs -Patient response monitored throughout treatment Compression Therapy (Multilayer Venous Wound Compression System) (81724): Skilled interventions: -Skilled knowledge of wound care and skilled application of knowledge for optimal wound healing environment and preventing/ minimizing adverse side effects. -Skilled education on rationale for dressing choice for reinforcement and improved compliance at home. -Compression dressing Profore lt (20-30 mmHg) applied to Right LE due to night pain, with DryMax, ABD pad, and a XL ABD pad between the layers of the PROFORE LT for added drainage absorption. -Toes are warm and pink before and post boot application. -educated the patient that if she exhibits a change in color to the extremity, change in temperature, increased pain, or the dressing becomes wet (external soiling or drainage strike-through), the patient was instructed to remove the dressing and apply a cover dressing until next seen. Patient voices understanding with intent to comply. Post Treatment/Symptom(s): See above Billing: Noncontact Ultrasound Mist (98695): no charge (bundled) Selective Sharp Debridement <20cm (12125): 1 unit Nonselective debridement (76607): no charge (bundled) Multi-Layer Venous Wound Compression System (31915): 1 unit (untimed) Session Start Time : 1540 Session Stop Time : 1633 Total Time: 53 minutes Amanda Soto PT documented in this encounterGalion [facility] Hospital06-16-2025 Telephone encounter Note * Telephone Encounter - Yamile Hoover RN - 02/17/2025 1:35 PM EDTSummary: NEW COPAT-MED CHANGE DX: R LOWER LEG INFECTION TX: ZOSYN 3.375GM IV Q6 STOP: 14 DAYS 03-03-25 LABS: CBC/D ALT CREAT QMON FU: [facility] PICC and first dose scheduled for 6-17-25 at 1:00. LMOVM for Whit at [facility] for SOC . [facility]06-[facility] Telephone encounter Note* Telephone Encounter - Lexie Gentile - 02/17/2025 11:14 AM EDT I called Mary Alice and she will call [facility] for scheduling. Lexie Gentile [facility]06-16-20[facility] Telephone encounter Note* Telephone Encounter - Lexie Gentile - 02/17/2025 11:09 AM EDT I talked to [facility] Whit and Eva is good with cost of Ángela working on nursing. Lexie Gentile [facility]06-16-20[facility] Telephone encounter Note* Telephone Encounter - Lexie Gentile - 02/17/2025 10:45 AM EDT I called [facility] Whit back to see where things are standing and waiting for a call back. Lexie Gentile [facility]06-16-[facility] Telephone encounter Note* Telephone Encounter - Ileana Molina RN - 02/17/2025 10:39 AM EDT Received phone message from pt, pt concerned that she has not received a call from hospital regarding PICC line insertion and IV antibiotics. Contacted PICC team, Per PICC team awaiting approval fromDr. Vicky reilly. Spoke to Lexie at Dr. Perry office who states they are working on approval and will notify patient. Call to patient to notify of above, instructed patient that if she feels infection is getting worse to Go to Er, pt denies any fever, chills, or feeling ill at this time. [facility] Miscellaneous Notes* Telephone Encounter - Ileana Molina RN - 02/17/2025 10:39 AM EDT Received phone message from pt, pt concerned that she has not received a call from hospital regarding PICC line insertion and IV antibiotics. Contacted PICC team, Per PICC team awaiting approval fromDr. Perry office. Spoke to Lexie at Dr. Perry office who states they are working on approval and will notify patient. Call to patient to notify of above, instructed patient that if she feels infection is getting worse to Go to Er, pt denies any fever, chills, or feeling ill at this time. documented in this encounterGalion Community Hospital06-16-2025 Telephone encounter Note * Telephone Encounter - Lexie Gentile - 02/17/2025 10:36 AM EDT Jerri from the [facility] called to see how things are moving with the PICC placement for Mary Alice because she called the [facility] said she feels her leg is getting worse. . I told Jerri I would check with [facility] and let Mary Alice know. . [facility]06-12-[facility] Telephone encounter Note* Telephone Encounter - Yamile Hoover RN - 02/13/2025 11:14 AM EDT Per email RS recommended two other IV abx options. Whit at I checking cost [facility]06-11-20[facility] Telephone encounter Note* Telephone Encounter - Yamile Hoover RN - 02/12/2025 4:37 PM EDT EM RS: Seen in [facility] yesterday. Cefepime 2gm iv q8 for Rt lower leg inf. Per [facility], patient cannot afford IV abx cost of $652.54/week (she doesn't have insurance that will cover home IV abx). What would you like to do? [facility]06-10-2025 Telephone encounter Note* Telephone Encounter - Yamile Hoover RN - 02/11/2025 5:01 PM EDTSummary: COPAT ACTION-FOR IDC USE ONLY [facility] DX: R LOWER LEG INFECTION TX: CEFEPIME 2GMIV Q8 STOP: 14 DAYS LABS: CBC/D ALT CREAT QMON FU: [facility] 02-25-25 Intake for pharmacy and nursing faxed to [facility] for benefit review. Notify IR when ok for them to schedule picc placement and first dose. [facility]06-10-2025 [facility]06-10-2025 History of Present illness Narrative* Nayan Blackmon MD - 02/11/2025 3:40 PM EDT Images from the original note were not included. INFECTIOUS DISEASE WOUND CENTER CONSULT PATIENT NAME: Mary Alice Ga DATE OF CONSULTATION: 02/11/2025 REASON FOR CONSULTATION: Right leg wound infection HISTORY OF PRESENT ILLNESS: Mary Alice Ga comes to the wound center infectious disease appointment with right leg wound infection. She demonstrated continued difficulty with her RIGHT LE large venous wound and associated significant pain. Culture with resistant bacteria. Recent cultures were reviewed with the patient. She has some warmth with cellulitis of the right leg noted. PAST MEDICAL HISTORY Diagnosis Date Arthritis Cirrhosis (HCC) Cirrhosis (HCC) Edema Flexural atopic dermatitis Inflamed seborrheic keratosis Liver disease Multiple nevi PMH - PAST MEDICAL HISTORY OF 01/24/08 pancreatitis PMH - PAST MEDICAL HISTORY OF htn PMH - PAST MEDICAL HISTORY OF hx varicose veins PMH - PAST MEDICAL HISTORY OF 05/17/08 pulmonary embolus- postop left TKA Seborrheic keratoses Solar lentiginosis PAST SURGICAL HISTORY Procedure Laterality Date PARTIAL HIP REPLACEMENT Left 10/2020 PAST SURGICAL HISTORY OF 09/04/1991 JULIETA/BSO for fibroids PAST SURGICAL HISTORY OF tonsillectomy PAST SURGICAL HISTORY OF 05/14/2008 Left TKA PAST SURGICAL HISTORY OF 08/29/2011 R TKA ALLERGIES ALLERGIES Allergen Reactions Clarithromycin (Bul* Other: See Comments pancrititis Steroids [Betametha* Intolerance pancritis CURRENT OUTPATIENT MEDICATIONS romosozumab-aqqg (EVENITY SUBCUTANEOUS) Inject subcutaneously. Given by Infusion center [facility] Cholecalciferol, Vitamin D3, (VITAMIN D) 25 mcg (1,000 unit) cap Take 1,000 Units by mouth once daily. calcium phosphate tribasic (TUMS GUMMY) 250 mg calcium chew Take by mouth. Patient takes 1000mg twice daily multivitamin (MULTIPLE VITAMINS) tablet Take 1 tablet by mouth once daily. gabapentin (NEURONTIN) 300 mg capsule 300 mg two times a day. (Patient not taking: Reported on 02/11/2025) traMADol (ULTRAM) 50 mg tablet Take 1 tablet by mouth every 6 hours as needed. methocarbamol (ROBAXIN) 500 mg tablet Take 1 tablet by mouth two times a day. (Patient not taking: Reported on 02/11/2025) LASIX 40 mg tablet Take 40 mg by mouth two times a day. (Patient taking differently: Take 40 mg by mouth two times a day. Patient admits to only daily and twice as needed) acetaminophen (TYLENOL) 325 mg cap Take by mouth. alendronate (FOSAMAX) 70 mg tablet Take 1 tablet by mouth one time a week. (Patient not taking: Reported on 06/12/2024) anastrozole (ARIMIDEX) [address] (PROTONIX) 40 mg tablet Take 1 tablet by mouth once daily. nadolol (CORGARD) 20 mg tablet TAKE ONE TABLET BY MOUTH EVERY DAY potassium chloride ER (K-DUR, KLOR-CON) 20 mEq tablet Take 20 mEq by mouth two times a day. diclofenac sodium (VOLTAREN) 1 % topical gel Apply 2 g to affected area four times daily as needed.(Patient not taking: Reported on 06/12/2024) spironolactone (ALDACTONE) 50 mg tablet Take 1 tablet by mouth twice daily. FAMILY HISTORY Problem Relation Age of Onset None Mother Dementia Mother Diabetes Father Heart Father Melanoma Father Melanoma Brother Social History Tobacco Use Smoking status: Never Smokeless tobacco: Never Substance Use Topics Alcohol use: Yes Comment: 3 glasses of wine daily-quit 05/2016 Drug use: No REVIEW OF SYSTEMS Full 10 Review of Systems done and negative unless stated in HPI. PHYSICAL EXAM: Vital signs: stable, afeb General: alert, oriented, NAD Lungs: bilaterally clear to auscultation Heart: regular rate and rhythm Abdomen: soft, non tender, non distended, BS+ Extremities: Right leg venous stasis ulcer associated with surrounding cellulitis and warmth. Drainage from the wound noted Skin: no rash DATA WBC Date Value 05/12/2017 7.08 k/uL 12/22/2016 4.7 x10(3) 04/29/2011 4.04 k/uL Hemoglobin (g/dL) Date Value 05/12/2017 13.5 12/22/2016 12.7 04/29/2011 14.1 PT INR (no units) Date Value 05/12/2017 1.1 12/23/2008 3.7 08/26/2008 2.9 INR (no units) Date Value 12/22/2016 1.1 06/15/2016 1.2 Sodium (mmol/L) Date Value 05/12/2017 136 12/22/2016 134 06/15/2016 128 Potassium (mmol/L) Date Value 05/12/2017 3.8 12/22/2016 4.1 06/15/2016 3.5 CO2 (mmol/L) Date Value 05/12/2017 27 12/22/2016 22 06/15/2016 22 BUN (mg/dL) Date Value 05/12/2017 18 12/22/2016 30 06/15/2016 7 AST (U/L) Date Value 05/12/2017 28 12/22/2016 34 04/29/2011 141 ALT (U/L) Date Value 05/12/2017 21 12/22/2016 25 04/29/2011 56 Bilirubin, Total (mg/dL) Date Value 05/12/2017 1.3 12/22/2016 1.9 04/29/2011 2.3 Alkaline Phosphatase (U/L) Date Value 05/12/2017 154 12/22/2016 141 04/29/2011 138 WSR (mm/hr) Date Value 07/12/2017 29 04/29/2011 14 MICROBIOLOGY: Reviewed IMAGING: Reviewed ASSESSMENT AND PLAN R leg wound infection Pseudomonas aeruginosa infection resistant to ciprofloxacin, gentamicin VSD Cirrhosis Chronic back pain RECOMMENDATIONS PICC line Start cefepime 2 g IV every 8 hours for 2 weeks Copat sent to PICC team, home health care and for insurance approvals. Greater than 30 minutes spent coordination of care Continue aggressive wound care Follow-up with the wound center infectious disease in 2 weeks Side effects, pros, cons of the antibiotics as well as the PICC line were discussed in details withthe patient. All questions answered. The patient reports that she has a crushed vertebrae in her back that needs back surgery that cannot be accomplished till the infection is treated I discussed the plan in detail with the patient and the patient verbalizes understanding and is in agreement. Complex antimicrobial therapy counseling and treatment. Rationale for switching antibiotics discussed. Education provided regarding long-term antimicrobial therapy as well as side effects. Discussed sensitivities with microbiology department and antimicrobial stewardship pharmacist that will influence antimicrobial therapy and the success of treatment for this infection. Nayan Blackmon MD Pager: * Ayanna Staton RN - 02/11/2025 3:20 PM EDT Nursing Documentation Pertinent Medical History: Wound Etiology according to patient: Right lower leg wound - patient has had intermittently. This wound began Jun 2024 due to swelling, vascular ablation right lower leg, cirrhosis, LE Edema, liver disease with Pancreatitis, PE, breast cancer 2022 Patient arrived via: ambulatory with rollator Home Care Company/Nursing Facility: denies Consent captured for debridement per (Provider) and good until Special Instructions (for example, patient stands at the bedside for exam/dressing): Anticoagulant Therapy: denies Living Situation (ie... 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 Provider seeing patient: Nayan Blackmon MD WOUND ASSESSMENT: Refer to Provider's Wound Assessment Note VASCULAR ASSESSMENT BY PROVIDER: N/A CHF History: denies Smoking: denies Education: EDEMA: Right foot: 3+ Right calf: 1+ Left foot: Left Calf: Other: MEASUREMENTS: in CM Right Calf: 32.0 Right Ankle: 26.0 Left Calf: Left Ankle: Length: NEY'S Left: Right: Brachial Pressure: HR: WOUND PHOTOGRAPHY: YES date taken: 02/11/2025 DEBRIDEMENT PROCEDURE BY PROVIDER: Anesthetic Used: N/A applied per dye room helper # Other procedure: Specimen collected: WOUND TREATMENT PER MD ORDER: Wounds cleansed by mechanical debridement to allow provider to visualize wound base WOUND # 1 LOCATION: Right Lower Leg - Lateral (NEW Jun 2024 - blister) L: 9.9 cm x W: 7.3 cm x D: 0.5 cm Post Debridement Measurements: L: cm x W: cm x D: cm Cleansed with: vashe' Applied to elif-wound skin: edith cream Applied to wound bed: acticote, drawtex, drymax, Covered and secured with: abd pad x 1 then after 1st layer of profore add an additional abd for strike through. Other: 3 layer Profore COMPRESSION: Profore Multiple layer Application: A 3 layer system applied to the bilateral lower extremity(s). A layer of cast padding, crepe bandage, followed with a layer of coban and stockinet from behind the toes to 1 below the knee. Toes were warm and pink before and post application. + dorsal pedis pulse on palpation. It was demonstrated to the patient how to check for adequate circulation. If the patient exhibits a change in color to the extremity: change in temperature, increased pain,or the compression wrap becomes wet or to tight, the patient has been instructed to remove the wrapor go to the Emergency Department. Patient voices understanding with intent to comply. weekly wraps from Amanda Soto DME: [employer] , PH: [phone] SPECIAL NEEDS: Coordination of care Amanda Soto PT Emotional support N/A OR set-up N/A Media Producer N/A Incontinence needs N/A DISCHARGED in stable condition to: ambulatory with rollator PLAN/ORDERS: Return to the wound center to see Dr. Lorri ARAUJO (Infectious Disease) in 2 weeks Continue aggressive nutritional support for optimal wound healing PICC line to be scheduled - the hospital will contact you with date and time Home care will be in contact with you to teach you how to infuse IV Antibiotics EDUCATION: The patient/family was instructed how to cleanse the wound(s). Visual demonstration on how to applythe dressing with teach back method. Signs & symptoms of infection were reviewed: Increased redness, swelling, pain, green/yellow drainage, fever and/or chills would all need to be evaluated by a Physician. Patient received typed home-going wound care instructions and has expressed intent to comply. Due to the cold and flu season approaching us, if you have any symptoms such as a cough, fever, chills, nausea, vomiting, diarrhea, and/or body aches, please call and reschedule your appointment in the Wound Center. OTHER EDUCATION by RN: New patient Wound care PICC line with IV Antibiotics Education performed regarding lymphedema/edema: Elevation of extremity above the heart for 30 minutes three times daily and as needed Exercise such as writing the ABC's with your toes in the air, walking and/or calf pumps Wearing compression as ordered by provider Diet controlling of sodium as instructed by provider Use of medication to help control edema. ____ UNIVERSAL PROTOCOL / SAFETY CHECKLIST Procedure to be Performed: Serial Sharp Debridement of Current HBOT Status: Active or Complete - see screening below WOUND CENTER HYPERBARIC OXYGEN THERAPY SCREENING 1. Is the patient diabetic? (If No, skip to question 5) No 5. Has the patient been diagnosed with osteomyelitis? No 6. Has the patient had a previous skin graft or flap at the wound? No 7. Has the patient had or been offered vascular intervention/evaluation? No 8. Does the patient have a wound at an amputation site? No 9. Has the patient had radiation therapy at the site of the problem? No If Yes to ANY of questions 5-9, consult the Hyperbaric Center [facility] Instructions* Patient Instructions* Ayanna Staton RN - 02/11/2025 3:28 PM EDT WOUND CARE INSTRUCTIONS- Mary Alice Ga Wound location: Right Lower Lateral leg Continue wound care as directed by Amanda Soto PT COMPRESSION keep dressing dry and intact until next wound care appointment. Compression wrap must be removed if: it becomes wet or soiled If you have numbness or tingling in your foot or toes If you have increased pain If toes become cold or discolored - Avoid sitting with legs in a dependent position or standing for long periods of time. - Attempt to lay flat and elevate your legs above the level of your heart 2-3 times daily, for 30 minutes at a time. - Be sure to continue walking and/or calf pumps and exercises to mimic writing the alphabet with your foot, as instructed - Control your sodium intake as instructed by provider - If it becomes necessary to remove the wrap, do so by unwinding it. Apply clean dressing as instructed and notify the wound care center. To give your wound the best chance to heal: - Eat three balanced meals daily focusing on the protein - Complete your wound care instructions as ordered - Vitamin C 500 mg twice daily - Multiple Vitamin Daily - Drink a protein shake daily - Premiere Clear or Glucerna for Diabetic patients, Nepro for renal patients and premiere for non-renal and non-diabetic patients Report any of the following signs and symptoms of infection to the Wound Center at [phone] or go to the Emergency Department: Fever or chills Increased drainage Green or yellow drainage Foul odor Increased pain Hardness around the wound Redness, warmth or swelling of the surrounding tissue Color change to the wound Any streaking coming from the wound When contacting the wound center at the ([phone]): Leave a message that includes your full name, birthday, phone number who your provider is and the reason for your call. During clinic hours we are with patients. A nurse will return your call within 24-48 hours in the order it was received. The wound center is closed weekends and on major holidays. If you call at that time we will return your call in the order that the calls were received at the soonest opportunity. If you have any signs of infection or need immediate attention then please go to the emergency department to be evaluated Thank you for your understanding and cooperation. If you call the wound center at the phone number provided above, please leave a detailed message that includes your full name, birthday, and phone number. We are seeing patients during the day, so wewill return your call within a 24-48 hr period in the order your call was received. Thank you for your cooperation and understanding. PLAN/ORDERS: Return to the wound center to see Dr. Lorri ARAUJO (Infectious Disease) in 2 weeks Continue aggressive nutritional support for optimal wound healing PICC line to be scheduled - the hospital will contact you with date and time Home care will be in contact with you to teach you how to infuse IV Antibiotics Dr. Nayan Blackmon MD/mjl/lt documented in [facility] 02-10-2025 History of Present illness Narrative* Amanda Soto, PT - 02/10/2025 11:40 AM EDT Episode Visit Count: 6 Therapist That Will Accept/Oversee The Plan Of Care: Amanda Soto Start of Care Date: 01/06/25 Onset Date: 08/14/24 (second week of August) Plan of Care Certification Date: 01/06/25 Next Certification Due Date: 03/27/25 Patient Identified by Name and Date of : Yes [facility] PHYSICAL THERAPY WOUND TREATMENT NOTE ASSESSMENT: Mary Alice Ga tolerated the session with anticipated discomfort with direct woundcare. She demonstrated continued difficulty with her RIGHT LE large venous wound and associated significant pain. Culture with resistant bacteria, ID appointment tomorrow to address the infection. The patient will continue to benefit from ongoing skilled physical therapy to further address the wound and promote optimal healing environment. Await ID recommendations. PLAN FOR NEXT VISIT: continue with active wound care, serial debridement to reduce necrotic tissue as able. Compression imperative. SUBJECTIVE: pt continues to c/o much pain. Did not sleep well last night due to pain. Worried abouther appt tomorrow and what Dr Blackmon said. Pain Tool: Verbal (Numeric Rating or Visual Analog Scale) Pain Level: 9 Pain Location: Leg-Right Description: Burning, Sore, Tenderness Duration: Continuous Intervention/Comfort measure: Medication, Reposition, Relaxation, Distractions, Emotional Support/Reassurance, Positioning, Other: See comment (compression and elevation) Response To Pain Intervention: 03/13 sore/painful OBJECTIVE: Patient presents for follow-up wound care treatment with the previous compression dressing intact. Minor strike-through of the anterior ankle crease. Gait is antalgic and mod-I with her rollator. WOUND STATUS: Wound 02/29/24 1600 Venous Ulcer Calf Distal;Right;Lateral (Active) Assessments 02/10/2025 11:00 AM Site Assessment Red;Yellow Elif-Wound Assessment Edema;Fragile;Hyperpigmented;Scarred Wound Length (cm) 9.7 cm Wound Width (cm) 7.5 cm Wound Surface Area (cm^2) 72.75 cm^2 Wound Depth (cm) 0.2 cm Wound Volume (cm^3) 14.55 cm^3 Wound Healing % -185 Drainage Description Serosanguineous;Purulent Drainage Amount Large with Strikethrough Odor None Elif-Wound Treatment Vaseline;Zinc Oxide;Betadine Treatments Cleansed;Mechanical Debridement;PT Debridement;PT Mist Therapy Dressing Changed Changed State of Healing Non-healing;Early/partial granulation Wound Bed Granulation (%) 60 % Wound Bed Slough (%) 40 % Non-staged Wound Description Partial thickness No associated orders. TREATMENT: Conservative Sharp Debridement <20cm (93175) and >20cm (47303): 5 mm curette used to selectively remove slough and fibrotic tissue throughout the wound bed as able. Skilled interventions: -Knowledge of tissue anatomy and wound care. -Skilled judgment was provided after wound assessment in selection of appropriate interventions. -Skilled hands-on technique for active wound care/sharp debridement with appropriate instruments todebride/remove devitalized and/or necrotic tissue to promote wound healing. -Assessment of pain tolerance throughout the session--use of topical Lidocaine to minimize pain ->20cm2 of non-viable/ necrotic tissue was removed from the wound bed Nonselective Debridement (70341): dressings removed. Cleansed the RIGHT LE with warm soapy water with chlorhexidine. Mechanical efforts via gauze swiping to remove elif-wound/global scales as able, loose slough on the wound bed, macerated/peeling tissue of the direct elif-wound and reduce drainage a ccumulation and bio-burden on the wound surface and direct elif-wound. Skilled interventions: -Skilled knowledge of wound care and skilled application of knowledge for optimal wound healing environment and preventing/ minimizing adverse side effects. -Skilled education on rationale for dressing choice for reinforcement and improved compliance at home. -Skilled judgement and knowledge for optimization of wound care and skin integrity. -Skilled gentle cleansing and mechanical debridement to remove loose non-viable tissue, reduce bio-burden, and improve global skin integrity. -Dressing management/ application: LE recleansed with NS and blotted dry. Global Vaseline. Wound bed and wound edges swiped with iodine. Zinc oxide to the elif- wound + Promogran + triple antibiotic ointment to the wound bed/wound edges + Acticoat + 4 x 4 guaze + DryMax + ABD pad + Conform to secure. 4 Antonio wrap toes to above the ankle and 6 ankle to knee. Did not apply the compression dressing due to wound center/ID appt tomorrow. Modalities: Noncontact Ultrasound MIST: 15 min to the RIGHT LE wound Skilled interventions: -Proper administration and selection of modality based on clinical presentation, deficits, and needs -Patient response monitored throughout treatment Post Treatment/Symptom(s): See above Billing: Noncontact Ultrasound Mist (60536): no charge Selective Sharp Debridement <20cm (70716): 1 unit Selective Sharp Debridement >20cm (57790): 1 unit Nonselective debridement (58994): no charge Session Start Time : 1034 Session Stop Time : 1138 Total Time: 63 minutes Amanda Soto PT documented in [facility]Gal[facility]06[facility] 02-03-2025 History of Present illness Narrative* Amanda Soto, PT - 02/03/2025 4:45 PM EDT Images from the original note were not included. Episode Visit Count: 5 Therapist That Will Accept/Oversee The Plan Of Care: Amanda Soto Start of Care Date: 01/06/25 Onset Date: 08/14/24 (second week of August) Plan of Care Certification Date: 01/06/25 Next Certification Due Date: 03/27/25 Patient Identified by Name and Date of : Yes [facility] PHYSICAL THERAPY WOUND TREATMENT AND PROGRESS REPORT PLAN OF CARE UPDATE: Mary Alice Ga demonstrates minimal improvement in her wound status. The patient has minimallyprogressed toward goals. Patient continues to present with impairments in wound healing that interfere with ADLs/IADLs, decreased tolerance to sleep and functional activity due to pain, and has + cultures and remains a high risk for recurrent infections with her open wound. She had made some improvement on the quality of the wound bed with less necrotic tissue. Drainage remains heavy. Elif-wound erythema is improved. Continued wound care is necessary and warranted to further address the wound and promote optimal wound healing potential. Current prognosis is fair due to multiple co-morbidities, infection/current wound status, and chronic nature of ulcer/re-ulceration. The patient will benefit from continued skilled therapy services to meet the updated goals for thisplan of care as noted below. Goals for Episode of Care: created on 01/06/25 through 07/05/25 UPDATED 02/03/25 Debride 50% of non-viable tissue from the wound bed: MET Eliminate all nonviable tissue from the wound bed: not met Decrease overall wound surface area (length x width) by 75% for the wound: not met Achieve full closure of wound on the RIGHT lateral lower leg: not met Decrease wound exudate from a copious amount to nil amount: not met, drainage remains heavy Decrease edema from 1 to 2 cm for vascular decongestion and reduced drainage.: not formally retested this date. Patient compliant with and tolerating compression dressings. Decrease pain complaints to 2/10 when most severe: not met, pain remains high Patient/ Caregiver will be able to demonstrate competence with dressing management: met: compliant with and tolerating current dressing regimen. PLAN: Follow up for one visit(s) per week for 20 weeks for Selective debridement <20cm, Selective debridement >20cm, Nonselective debridement, Noncontact Ultrasound Mist, Compression Therapy (dressing), Patient/ Caregiver Education, and Self Care/ Home Management SUBJECTIVE: pt reports her spouse is hospitalized. Continues to report much pain on the R LE. It feels a little bit better, but still very painful. Sleeping a bit better without disruptions from her spouse. Pain Tool: Verbal (Numeric Rating or Visual Analog Scale) Pain Level: 8 Pain Location: Leg-Right Description: Burning, Sore, Tenderness Duration: Continuous Intervention/Comfort measure: Medication, Reposition, Relaxation, Distractions, Emotional Support/Reassurance, Education, Positioning, Other: See comment (compression and elevation) Response To Pain Intervention: 05/14. burning, sore, painful PROMIS Scales 06/26/2024 05/28/2024 04/30/2024 Higher is Better Phys Func - T Score 30 (moderate dysfunction) 29 (severe dysfunction) 43 (mild dysfunction) Phys Func - Percentile 2 2 24 Self-Eff Symptom - T Score 49 (Average) 48 (Average) Self-Eff Symptom - Percentile 46 42 Proxy-reported 01/06/2025 Lower is Better Pain Interference - T Score 68 (moderate) Pain Interference - Percentile 4 T-scores: mean of general population = 50. 5 points is clinically meaningfully difference Percentiles provide an indication of how the patient's score ranks in relation to the general population. Higher percentile rankings indicate better function/quality of life. 50th percentile is the average of the general population and indicates half of respondents had a worse score. OBJECTIVE MEASURES WITH LEVEL OF FUNCTION: Patient presents for follow-up wound care treatment with the compression dressing intact and in good position. Gait is antalgic and she uses a rollator. Antalgic gait is a combination of scoliosis/back pain, LE orthopedic changes, and her RIGHT LE wound. + strike-through across the anterior ankle/ankle crease. WOUND STATUS: Wound 02/29/24 1600 Venous Ulcer Calf Distal;Right;Lateral (Active) Assessments 02/03/2025 4:30 PM Site Assessment Red;Yellow;[place] Elif-Wound Assessment Edema;Fragile;Hyperpigmented;Scarred Wound Length (cm) 9.7 cm Wound Width (cm) 8 cm Wound Surface Area (cm^2) 77.6 cm^2 Wound Depth (cm) 0.2 cm Wound Volume (cm^3) 15.52 cm^3 Wound Healing % -204 Drainage Description Serosanguineous;Purulent Drainage Amount Large with Strikethrough Odor Mild Elif-Wound Treatment Vaseline;Zinc Oxide;Betadine Treatments Cleansed;Mechanical Debridement;PT Compression;PT Debridement;PT Mist Therapy Dressing Changed Changed State of Healing Non-healing;Early/partial granulation Wound Bed Granulation (%) 60 % Wound Bed Slough (%) 40 % (marbled slough and fibrotic banding) Non-staged Wound Description Partial thickness No associated orders. TREATMENT: Conservative Sharp Debridement <20cm (47722): 5 mm curette used to selectively remove slough andfibrotic tissue throughout the wound bed as able. Skilled interventions: -Knowledge of tissue anatomy and wound care. -Skilled judgment was provided after wound assessment in selection of appropriate interventions. -Skilled hands-on technique for active wound care/sharp debridement with appropriate instruments todebride/remove devitalized and/or necrotic tissue to promote wound healing. -Assessment of pain tolerance throughout the session--use of topical Lidocaine to minimize pain -<20cm2 of non-viable/ necrotic tissue was removed from the wound bed Nonselective Debridement (85597): dressings removed. Cleansed the RIGHT LE with warm soapy water with chlorhexidine. Mechanical efforts via gauze swiping and a chlorhexidine sponge to remove elif-wound/global scales as able, loose slough on the wound bed, macerated/peeling tissue of the direct elif-wound and reduce drainage accumulation and bio-burden. Skilled interventions: -Skilled knowledge of wound care and skilled application of knowledge for optimal wound healing environment and preventing/ minimizing adverse side effects. -Skilled education on rationale for dressing choice for reinforcement and improved compliance at home. -Skilled judgement and knowledge for optimization of wound care and skin integrity. -Skilled gentle cleansing and mechanical debridement to remove loose non-viable tissue, reduce bio-burden, and improve global skin integrity. -Dressing management/ application: LE recleansed with NS and blotted dry. Global Vaseline. Wound bed and wound edges swiped with iodine. Zinc oxide to the elif- wound + Promogran to select areas alongthe wound periphery. Triple antibiotic ointment to the wound bed/wound edges + Acticoat + compression dressing as below. Modalities: Noncontact Ultrasound MIST: 15 min to the RIGHT LE wound Skilled interventions: -Proper administration and selection of modality based on clinical presentation, deficits, and needs -Patient response monitored throughout treatment Compression Therapy (Multilayer Venous Wound Compression System) (73308): Skilled interventions: -Skilled knowledge of wound care and skilled application of knowledge for optimal wound healing environment and preventing/ minimizing adverse side effects. -Skilled education on rationale for dressing choice for reinforcement and improved compliance at home. -Compression dressing Profore lt (20-30 mmHg) applied to Right LE, with DryMax, ABD pad, and a XL ABD pad between the layers of the PROFORE LT for added drainage absorption. -Toes are warm and pink before and post boot application. -educated the patient that if she exhibits a change in color to the extremity, change in temperature, increased pain, or the dressing becomes wet (external soiling or drainage strike-through), the patient was instructed to remove the dressing and apply a cover dressing until next seen. Patient voices understanding with intent to comply. Post Treatment/Symptom(s): See above Billing: Noncontact Ultrasound Mist (71657): no charge (bundled) Selective Sharp Debridement <20cm (28598): 1 unit Nonselective debridement (02030): no charge (bundled) Multi-Layer Venous Wound Compression System (66476): 1 unit (untimed) Session Start Time : 1545 Session Stop Time : 1645 Total Time: 60 minutes Amanda [facility]oto [facility] History of Present illness Narrative* Amanda Soto, PT - 01/28/2025 11:24 AM EDT Episode Visit Count: 4 Therapist That Will Accept/Oversee The Plan Of Care: Amanda Soto Start of Care Date: 01/06/25 Onset Date: 08/14/24 (second week of August) Plan of Care Certification Date: 01/06/25 Next Certification Due Date: 03/27/25 Patient Identified by Name and Date of : Yes [facility] PHYSICAL THERAPY WOUND TREATMENT NOTE ASSESSMENT: Mary Alice Ga tolerated the session with expected pain/sensitivity. Increased active bleeding noted as wound bed less necrotic. Wound culture taken to rule out infection (as contributor to pain and drainage). She demonstrated improvements in increased granular tissue on the wound bed. The patient will continue to benefit from ongoing skilled physical therapy to further address her wound and promote optimal healing potential. PLAN FOR NEXT VISIT: continue with active wound care, serial debridements and compression imperative SUBJECTIVE: pt continues to c/o much pain. Not sleeping well due to pain. Gets some relief droppingher leg off the bed. Reports vascular testing in [place] was ok. Also having issues with her spousewhich makes sleeping interrupted. She feels exhausted. Pain Tool: Verbal (Numeric Rating or Visual Analog Scale) Pain Level: 7 Pain Location: Leg-Right Description: Burning, Sore, Aching, Tenderness (stinging) Duration: Continuous Intervention/Comfort measure: Medication, Reposition, Relaxation, Distractions, Emotional Support/Reassurance, Positioning, Other: See comment (compression and elevation as tolerated) Response To Pain Intervention: 8/10 burning, sore OBJECTIVE: Patient presents for follow-up wound care treatment with dressing intact. No strike-through noted. Heavy drainage noted on dressing removal with a mild odor and mild purulent (greenish hue) quality to the drainage. Increased active bleeding noted on distal drainage. WOUND STATUS: Wound 02/29/24 1600 Venous Ulcer Calf Distal;Right;Lateral (Active) Assessments 01/28/2025 11:00 AM Site Assessment Red;Yellow;[place] Elif-Wound Assessment Edema;Fragile;Hyperpigmented;Moist ;Erythematous;Painful Shape anterior wound nearly resolved Wound Length (cm) 10 cm Wound Width (cm) 9.5 cm Wound Surface Area (cm^2) 95 cm^2 Wound Depth (cm) 0.2 cm Wound Volume (cm^3) 19 cm^3 Wound Healing % -272 Drainage Description Serosanguineous;Purulent;Sanguineous Drainage Amount Large Odor Mild Elif-Wound Treatment Vaseline;Zinc Oxide;Betadine Treatments Cleansed;Mechanical Debridement;PT Compression;PT Debridement;PT Mist Therapy Dressing Changed Changed State of Healing Non-healing;Early/partial granulation Wound Bed Granulation (%) 70 % Wound Bed Slough (%) 30 % (marbled slough and fibrotic banding) Non-staged Wound Description Partial thickness No associated orders. TREATMENT: Conservative Sharp Debridement <20cm (06513): 5 mm curette used to selectively remove slough andfibrotic tissue throughout the wound bed as able. Skilled interventions: -Knowledge of tissue anatomy and wound care. -Skilled judgment was provided after wound assessment in selection of appropriate interventions. -Skilled hands-on technique for active wound care/sharp debridement with appropriate instruments todebride/remove devitalized and/or necrotic tissue to promote wound healing. -Assessment of pain tolerance throughout the session--use of topical Lidocaine to minimize pain -<20cm2 of non-viable/ necrotic tissue was removed from the wound bed Nonselective Debridement (10798): dressings removed. RIGHT LE blotted dry and culture taken. Cleansed the RIGHT LE with warm soapy water with chlorhexidine. Mechanical efforts via gauze swiping, chlorhexidine sponge, and select manual efforts to remove elif-wound/global scales as able, loose sloughon the wound bed, macerated/peeling tissue of the direct elif-wound and reduce drainage accumulation and bio-burden. Skilled interventions: -Skilled knowledge of wound care and skilled application of knowledge for optimal wound healing environment and preventing/ minimizing adverse side effects. -Skilled education on rationale for dressing choice for reinforcement and improved compliance at home. -Skilled judgement and knowledge for optimization of wound care and skin integrity. -Skilled gentle cleansing and mechanical debridement to remove loose non-viable tissue, reduce bio-burden, and improve global skin integrity. -Dressing management/ application: Global Vaseline. Wound bed and wound edges swiped with iodine. Zinc oxide to the elif-wound + Promogran to select areas along the wound periphery. Triple antibioticointment to the wound bed/wound edges + Acticoat + compression dressing as below. Modalities: Noncontact Ultrasound MIST: 18 min to the RIGHT LE wound Skilled interventions: -Proper administration and selection of modality based on clinical presentation, deficits, and needs -Patient response monitored throughout treatment Compression Therapy (Multilayer Venous Wound Compression System) (17496): Skilled interventions: -Skilled knowledge of wound care and skilled application of knowledge for optimal wound healing environment and preventing/ minimizing adverse side effects. -Skilled education on rationale for dressing choice for reinforcement and improved compliance at home. -Compression dressing Profore lt (20-30 mmHg) applied to Right LE due to night pain, with DryMax, ABD pad, and a XL ABD pad between the layers of the PROFORE LT for added drainage absorption. -Toes are warm and pink before and post boot application. -educated the patient that if she exhibits a change in color to the extremity, change in temperature, increased pain, or the dressing becomes wet (external soiling or drainage strike-through), the patient was instructed to remove the dressing and apply a cover dressing until next seen. Patient voices understanding with intent to comply. Post Treatment/Symptom(s): See above Billing: Noncontact Ultrasound Mist (55067): no charge (bundled) Selective Sharp Debridement <20cm (82181): 1 unit Nonselective debridement (56749): no charge (bundled) Multi-Layer Venous Wound Compression System (37352): 1 unit (untimed) Session Start Time : 1033 Session Stop Time : 1138 Total Time: 65 minutes Amanda Soto PT [facility] note* Diagnosis Onset Date Resolution Status Admit Date Back pain acute January 22, 2025 11:42am Compression fracture of lumb ar vertebra acute January 22, 2025 1 1:42am Breast cancer acute January 23, 025 12:32pm [facility] Work Phone: 1(914) 280-130805-21-2025 Evaluation note* Diagnosis Onset Date Resolution Status Admit Date Back pain acute January 22, 2025 11:42am Compression fracture of lumb ar vertebra acute January 22, 2025 1 1:42am Breast cancer acute January 23, 2 025 12:32pm Chronic pain chronic April 29, 2025 12:39pm Cirrhosis chronic April 29 025 12:39pm Dyspnea chronic April 29 025 12:39pm [facility] Work Phone: 1(704) 878-354105-21-2025 Evaluation note* Diagnosis Onset Date Resolution Status Admit Date Back pain acute January 22, 2025 11:42am Compression fracture of lumb ar vertebra acute January 22, 2025 1 1:42am Breast cancer acute January 23, 025 12:32pm Chronic pain chronic April 29, 2025 12:39pm Cirrhosis chronic April 29 12:39pm Dyspnea chronic April 29 12:39pm Compression fracture of lumb ar vertebra acute May 08 1:03pm History of kyphoplasty acute Se pt2024 1:03pm Lumbar stenosis with neurogenic claudication acute Mayemb r 2024 1:03pm Osteoporosis chronic May 1:03pm CHF (congestive heart failure) acute May 21, 2025 8:04am Compression fracture of lumb ar vertebra acute May 21, 2025 8:04am Decompensated hepatic cirrhosis acute May 21, 2025 8:04am Osteoporosis chronic May 212024 8:04am [facility] Work Phone: 1(138) 406-149005-19-2025 [facility]Do[id number] History of Present illness Narrative* Amanda Soto, PT - 01/13/2025 10:35 AM EDT Episode Visit Count: 2 Therapist That Will Accept/Oversee The Plan Of Care: Amanda Soto Start of Care Date: 01/06/25 Onset Date: 08/14/24 (second week of August) Plan of Care Certification Date: 01/06/25 Next Certification Due Date: 03/27/25 Patient Identified by Name and Date of : Yes [facility] PHYSICAL THERAPY WOUND TREATMENT NOTE ASSESSMENT: Mary Alice Ga tolerated the session with much discomfort. Topical lidocaine used to minimize pain with limited success. She demonstrated less elif-wound erythema, but distally erythema continued. Significant edema reduction noted evidences by linear wrinkles. A new distal anteriorsatellite wound is noted, most likely related to irritation from wrinkles from rapid edema reduction. The patient will continue to benefit from ongoing skilled physical therapy to further address thewound and promote healing. PLAN FOR NEXT VISIT: continue with active wound care, serial debridements indicated. Modify primary dressing/wound contact dressing as needed to optimize healing SUBJECTIVE: pt c/o alot of pain. Difficulty sleeping due to pain. Tolerated the compression dressing well. Pain Tool: Verbal (Numeric Rating or Visual Analog Scale) Pain Level: 8 Pain Location: Leg-Right Description: Burning, Sore, Tenderness, Aching Duration: Continuous Intervention/Comfort measure: Medication, Reposition, Relaxation, Distractions, Emotional Support/Reassurance, Positioning, Other: See comment (compression and elevation) Response To Pain Intervention: pain remains high-- 8/10 OBJECTIVE: Patient presents for follow-up wound care treatment with the compression dressing intactand in good position. On removal, significant linear wrinkles noted from edema reduction. WOUND STATUS: Wound 02/29/24 1600 Venous Ulcer Calf Distal;Right;Lateral (Active) Assessments 01/13/2025 10:00 AM Site Assessment Yellow;Red Elif-Wound Assessment Edema;Erythematous;Fragile;Hyperpigmented;Moist ;Painful Shape irregular. New anterior irritation/satellite wound: 0.5 x 0.8 Wound Length (cm) 10 cm Wound Width (cm) 9.5 cm Wound Surface Area (cm^2) 95 cm^2 Wound Depth (cm) 0.2 cm Wound Volume (cm^3) 19 cm^3 Wound Healing % -272 Drainage Description Serosanguineous Drainage Amount Large Odor None Elif-Wound Treatment Vaseline;Zinc Oxide;Betadine Treatments Cleansed;Mechanical Debridement;PT Debridement;PT Mist Therapy;PT Compression Dressing Changed Changed State of Healing Non-healing Wound Bed Granulation (%) 55 % Wound Bed Slough (%) 45 % (slough and fibrotic tissue) Non-staged Wound Description Partial thickness No associated orders. TREATMENT: Conservative Sharp Debridement <20cm (91389) & >20cm (24887): 5 mm curette used to selectively remove slough throughout the wound bed as able. Skilled interventions: -Knowledge of tissue anatomy and wound care. -Skilled judgment was provided after wound assessment in selection of appropriate interventions. -Skilled hands-on technique for active wound care/sharp debridement with appropriate instruments todebride/remove devitalized and/or necrotic tissue to promote wound healing. -Assessment of pain tolerance throughout the session--use of topical Lidocaine to minimize pain ->20cm2 of non-viable/ necrotic tissue was removed from the wound bed Nonselective Debridement (59192): dressings removed. RIGHT LE cleansed with warm soapy water with chlorhexidine. Mechanical efforts via gauze swiping and select manual efforts to remove significant amounts of elif-wound/global scales, loose slough on the wound bed, macerated/peeling tissue of the direct elif-wound and reduce drainage accumulation and bio-burden. Skilled interventions: -Skilled knowledge of wound care and skilled application of knowledge for optimal wound healing environment and preventing/ minimizing adverse side effects. -Skilled education on rationale for dressing choice for reinforcement and improved compliance at home. -Skilled judgement and knowledge for optimization of wound care and skin integrity. -Skilled gentle cleansing and mechanical debridement to remove loose non-viable tissue, reduce bio-burden, and improve global skin integrity. -Dressing management/ application: Global Vaseline. Wound bed and wound edges swiped with iodine. Zinc oxide to the elif-wound + Promogran to select areas along the wound periphery. Triple antibioticointment to the wound bed. + Acticoat + compression dressing as below. Modalities: Noncontact Ultrasound MIST: 18 min to the RIGHT LE wound Skilled interventions: -Proper administration and selection of modality based on clinical presentation, deficits, and needs -Patient response monitored throughout treatment Compression Therapy (Multilayer Venous Wound Compression System) (05253): Skilled interventions: -Skilled knowledge of wound care and skilled application of knowledge for optimal wound healing environment and preventing/ minimizing adverse side effects. -Skilled education on rationale for dressing choice for reinforcement and improved compliance at home. -Compression dressing Profore LT (20-30 mmHg) applied to Right LE with DryMax, ABD pad, and a XL ABD pad between the layers of the PROFORE for added drainage absorption. Reduced Profore strength due to rapid edema reduction after the first application. -Toes are warm and pink before and post boot application. -educated the patient that if she exhibits a change in color to the extremity, change in temperature, increased pain, or the dressing becomes wet (external soiling or drainage strike-through), the patient was instructed to remove the dressing and apply a cover dressing until next seen. Patient voices understanding with intent to comply. Post Treatment/Symptom(s): See above Billing: Noncontact Ultrasound Mist (33933): no charge (bundled) Selective Sharp Debridement <20cm (50268): 1 unit Selective Sharp Debridement >20cm (06779): 1 unit Nonselective debridement (60454): no charge (bundled) Multi-Layer Venous Wound Compression System (63532): 1 unit (untimed) Session Start Time : 940 Session Stop Time : 1033 Total Time: 53 minutes Amanda Soto PT [facility] History of Present illness Narrative* Amanda Soto, PT - 01/06/2025 10:45 AM EDT Images from the original note were not included. Episode Visit Count: 1 Therapist That Will Accept/Oversee The Plan Of Care: Amanda Soto Start of Care Date: 01/06/25 Onset Date: 08/14/24 (second week of August) Plan of Care Certification Date: 01/06/25 Next Certification Due Date: 03/27/25 Patient Identified by Name and Date of : Yes [facility] PHYSICAL THERAPY WOUND EVALUATION PLAN OF CARE: Assessment: Mary Alice Ga presents with the chief complaint of worsening RIGHT LE wound. PROMIS (Patient-Reported Outcomes Measurement Information System) scores were reviewed and identified asa rehabilitation concern. The patient presents with impairments of disrupted skin integrity, pain, increased care needs, and is at risk for recurrent infection with an open wound. The patient may benefit from skilled therapy services to address the wound and promote optimized wound healing environment. Prognosis: Fair Fair due to: clinical presentation, multiple co- morbidities, chronic nature of impairments Problems/Barriers to Healing: Pain, Medical condition/status interfering with wound healing PVD Goals for Episode of Care: created on 01/06/25 through 07/05/25 Debride 50% of non-viable tissue from the wound bed Eliminate all nonviable tissue from the wound bed Decrease overall wound surface area (length x width) by 75% for the wound Achieve full closure of wound on the RIGHT lateral lower leg Decrease wound exudate from a copious amount to nil amount Decrease edema from 1 to 2 cm for vascular decongestion and reduced drainage. Decrease pain complaints to 2/10 when most severe Patient/ Caregiver will be able to demonstrate competence with dressing management Planned Interventions, Frequency, and Duration: Current Frequency: 1x/week Duration: (6 months) Total Number of Visits Planned: 24 Planned Treatment Interventions: Self-longterm management (19604), Patient/Family/Caregiver Education, Wound Selective debridement <20cm, Selective debridement >20cm, Nonselective debridement, Noncontact Ultrasound Mist, Compression Therapy (dressing) PLAN FOR NEXT VISIT: continue with active wound care, serial debridements and compression imperative. Consider culture pending drainage. Patient demonstrates good understanding of plan of care and treatment. The above goals and plan of care were discussed and agreed upon by patient/family. SUBJECTIVE: Pt states after she left [place] in the late fall, her R leg was doing really well. She was compliant with her compression dressing. But, she had issues when her spouse went back to the hospital, was not doing well with her support stockings as she could not get them off by herself. The wound re-opened. Tried care in [place], but the wound worsened. Back in [place] until next fall. Having ravi hard time with sleeping-- wound wakes her up. Pain Tool: Verbal (Numeric Rating or Visual Analog Scale) Pain Level: 4 Pain Location: Leg-Right Description: Burning (Blow torch on it.) Duration: Continuous Intervention/Comfort measure: Medication, Reposition, Relaxation, Distractions, Education, Emotional Support/Reassurance, Positioning, Other: See comment (compression and elevation) Response To Pain Intervention: patient states pain is ok at exit. 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 Previous treatment: Outpatient PT wound care, Outpatient wound center Course of treatment: wound nearly closed prior to patient's return to [place] Assessment:: + risk due to orthopedic and back issues. Uses AD. Unsteady/antalgic gait. Relevant medical history: hx venous insufficiency and recurrent wounds PROMIS Scales 06/26/2024 05/28/2024 04/30/2024 Higher is Better Phys Func - T Score 30 (moderate dysfunction) 29 (severe dysfunction) 43 (mild dysfunction) Phys Func - Percentile 2 2 24 Self-Eff Symptom - T Score 49 (Average) 48 (Average) Self-Eff Symptom - Percentile 46 42 Proxy-reported 01/06/2025 Lower is Better Pain Interference - T Score 68 (moderate) Pain Interference - Percentile 4 T-scores: mean of general population = 50. 5 points is clinically meaningfully difference Percentiles provide an indication of how the patient's score ranks in relation to the general population. Higher percentile rankings indicate better function/quality of life. 50th percentile is the average of the general population and indicates half of respondents had a worse score. OBJECTIVE MEASURES WITH LEVEL OF FUNCTION: Integumentary Status Edema Assessment: R Lower Extremity Edema R Lower Extremity Edema : Non Pitting Skin Abnormality: Wound Wound Location: R Lower Extremity Skin abnormalities comment: significant hemosiderin staining, scarring from previous wounds, varicose veins Circulation Pulses: Right Dorsalis Pedis, Right Posterior Tibial Right Dorsalis Pedis Pulse: 3+ - Normal Right Posterier Tibial Pulse: 2+ - Palpable but Diminished Capillary Refill: Right Lower Extremity Right Lower Extremity Capillary Refill: Intact WOUND ASSESSMENT: SEE GET IMAGES for photo Wound 02/29/24 1600 Venous Ulcer Calf Distal;Right;Lateral (Active) Assessments 01/06/2025 10:00 AM Site Assessment Yellow;Red Elif-Wound Assessment Edematous;Erythematous;Fragile;Hyperpigmented;Moist ;Painful Shape irregular Wound Length (cm) 10.5 cm Wound Width (cm) 9 cm Wound Surface Area (cm^2) 94.5 cm^2 Wound Depth (cm) 0.2 cm Wound Volume (cm^3) 18.9 cm^3 Wound Healing % -270 Drainage Description Serosanguineous;Purulent Drainage Amount Large with Strikethrough Odor None Elif-Wound Treatment Vaseline;Zinc Oxide;Betadine Treatments Cleansed;Mechanical Debridement;PT Debridement;PT Mist Therapy;PT Compression Dressing Other (Comment) (see note) Dressing Changed Changed State of Healing Non-healing Wound Bed Granulation (%) 50 % Wound Bed Slough (%) 50 % (slough and fibrotic tissue) Non-staged Wound Description Partial thickness No associated orders. Lymphedema Temperature To Touch: Normal Skin Changes: Color, Teleangiectasia, Deepend Skin Folds, Dryness/Flaking Of Skin Circumferential Measurements: Lower Extremities Circumferential Measurements RLE Circumferential Measurements: Metatarsal Heads, Mid Foot, Ankle, 10 cm, 20 cm, 30 cm Right Metatarsal Heads: 24.2 Right Mid Foot: 25.2 Right Ankle: 28.6 Right Lower Extremity 10cm: 25.3 Right Lower Extremity 20cm: 28.1 Right Lower Extremity 30cm: 39.7 Body Systems Range of Motion: WFL Current Functional Mobility Sit To Stand: Modified Independent Stand To Sit: Modified Independent Gait: Modified Independent Gait Device: Cane Gait Distance (feet): ad ruba Gait Deviations: General Deviations General Deviations/Observations: Antalgic gait (scoliosis) Education Learning Preferences: Demonstration, Explanation, Performance Barriers: None Learning/Educational Needs: Discharge Plan, Disease Process, Plan of Care, Rehabilitation Techniques and Procedures, Skin/Wound Care Lymphedema & Wound Care Learning/Educational Needs: Importance of Compliance for Wound Healing,Positioning, Role of US Mist in Wound Healing, Venous Insufficiency Guidelines Education Provided: Yes, see treatment interventions for education provided Education Provided To: Patient Education Mode/Type: Demonstration, Explanation/Discussion Response to Education/Teach Back: States/Identifies TREATMENT: Evaluation Conservative Sharp Debridement <20cm (89049) & >20cm (12247): 5 mm curette used to selectively remove slough on the wound bed as able. Skilled interventions: -Knowledge of tissue anatomy and wound care. -Skilled judgment was provided after wound assessment in selection of appropriate interventions. -Skilled hands-on technique for active wound care/sharp debridement with appropriate instruments todebride/remove devitalized and/or necrotic tissue to promote wound healing. -Assessment of pain tolerance throughout the session. ->20cm2 of non-viable/ necrotic tissue was removed from the wound bed Nonselective Debridement (71338): home dressings removed. RIGHT LE cleansed with warm soapy water with chlorhexidine. Mechanical efforts via gauze swiping and select manual efforts to remove significant amounts of elif-wound/global scales, loose slough on the wound bed, macerated/peeling tissue of the direct elif- wound and reduce drainage/bio-burden residue. Skilled interventions: -Skilled knowledge of wound care and skilled application of knowledge for optimal wound healing environment and preventing/ minimizing adverse side effects. -Skilled education on rationale for dressing choice for reinforcement and improved compliance at home. -Skilled judgement and knowledge for optimization of wound care and skin integrity. -Skilled gentle cleansing and mechanical debridement to remove loose non-viable tissue, reduce bio-burden, and improve global skin integrity. -Dressing management/ application: Global Vaseline. Wound bed and wound edges swiped with iodine. Zinc oxide to the elif-wound + Promogran to select areas along the wound periphery. Triple antibioticointment to the wound bed. + Acticoat + compression dressing as below. Modalities: Noncontact Ultrasound MIST: 15 min to the RIGHT LE wound Skilled interventions: -Proper administration and selection of modality based on clinical presentation, deficits, and needs -Patient response monitored throughout treatment Compression Therapy (Multilayer Venous Wound Compression System) (48062): Skilled interventions: -Skilled knowledge of wound care and skilled application of knowledge for optimal wound healing environment and preventing/ minimizing adverse side effects. -Skilled education on rationale for dressing choice for reinforcement and improved compliance at home. -Compression dressing Profore (30-40mmHg) applied to Right LE with DryMax, ABD pad, and a XL ABD pad between the layers of the PROFORE for added drainage absorption. -Toes are warm and pink before and post boot application. -educated the patient that if she exhibits a change in color to the extremity, change in temperature, increased pain, or the dressing becomes wet (external soiling or drainage strike-through), the patient was instructed to remove the dressing and apply a cover dressing until next seen. Patient voices understanding with intent to comply. Post Treatment Pain/Symptoms: See abov Billing: Evaluation - Moderate Complexity (48349) Noncontact Ultrasound Mist (27739): no charge (bundled) Selective Sharp Debridement <20cm (72194): 1 unit Selective Sharp Debridement >20cm (57910): 1 unit Nonselective debridement (43360): no charge (bundled) Multi-Layer Venous Wound Compression System (91025): 1 unit (untimed) Session Start Time : 938 Session Stop Time : 6 Total time: 67 minutes [facility] History of Present illness Narrative* Amanda Soto, PT - 06/26/2024 4:47 PM EDT Images from the original note were not included. Episode Visit Count: 17 Medicare visits current year: 17 WOUND CARE Therapist That Will Accept/Oversee The Plan Of Care: Amanda Soto Start of Care Date: 01/24/24 Onset Date: 01/23/21 Plan of Care Certification Date: 05/28/24 Next Certification Due Date: 08/27/24 Patient Identified by Name and Date of : Yes [facility] PHYSICAL THERAPY WOUND TREATMENT AND DISCONTINUANCE OF CARE PLAN OF CARE UPDATE: Patients RIGHT LE wounds are nearly resolved. The medial wounds are closed and stable. The lateral wound is 99% closed. Great overall progress has been made. Care is being discontinued as patient is leaving to return to [place] this weekend. Patient has been educated on self care principles once the current compression dressing is removed. Patient to seek additional wound care services as needed after she gets to [place]. Patient is pleased with overall improvement and is appreciative of care. Functional Gains: wound closure achieved of the medial LE cluster and increased wound healing as evidenced by much improved quality and size reduction of the RIGHT lateral wound. Goals for Episode of Care Updated: 06/26/2024 to be achieved by 08/27/24 Debride 50% of non-viable tissue from wounds on the RIGHT LE: MET Eliminate all nonviable tissue from wounds on the RIGHT LE: MOSTLY MET: 5% slough/fibrotic tissue on the lateral wound Decrease overall wound surface area (length x width) by 50% for wounds on the RIGHT LE: MET Achieve full closure the anterior satellite wound: MET Achieve full closure of the wound of the Medial RIGHT LE: MET Achieve full closure of the wound of the Lateral RIGHT LE : Not met but excellent progress-- 99% closed Eliminate wound drainage: not met but much improved. Eliminate pain: mostly met. Much less elif-wound tenderness is noted. Patient voices understanding of assisted edema management via compression garments, leg elevation,and exercise. MOSTLY MET: pt voices understanding and intent to comply. PLAN: discontinue PT due to patient relocation to [place] SUBJECTIVE: Patient has much back pain. Is leaving for [place] on Monday. Is seeing a outcomes specialist the Monday she gets there for potential kyphoplasty. Patient states due to her back pain, she doesn't evennotice the RIGHT LE pain. Patient rating of condition: better Pain Tool: Verbal (Numeric Rating or Visual Analog Scale) Pain Level: 1 Pain Location: Leg-Right Description: Sore, Tenderness Duration: Intermittent Intervention/Comfort measure: Medication, Reposition, Relaxation, Distractions, Emotional Support/Reassurance, Positioning, Other: See comment (compression and elevation) Response To Pain Intervention: denies pain on the R LE on exit. PROMIS Scales 04/30/2024 05/28/2024 06/26/2024 Higher is Better Phys Func - Score 43 (mild dysfunction) 29 (severe dysfunction) 30 (moderate dysfunction) Phys Func - Percentile 24 2 2 Self-Eff Symptom - Score 48 (Average) 49 (Average) Self-Eff Symptom - Percentile 42 46 T-scores: mean of general population = 50. 5 points is clinically meaningfully difference Percentiles provide an indication of how the patient's score ranks in relation to the general population. Higher percentile rankings indicate better function/quality of life. 50th percentile is the average of the general population and indicates half of respondents had a worse score. T-scores: mean of general population = 50. 5 points is clinically meaningfully difference Percentiles provide an indication of how the patient's score ranks in relation to the general population. Higher percentile rankings indicate better function/quality of life. 50th percentile is the average of the general population and indicates half of respondents had a worse score. OBJECTIVE MEASURES WITH LEVEL OF FUNCTION: Patient presents for follow-up wound care treatment with the compression dressing intact. The plantar foot is wet. Gait is mod-I with a rollator. Very antalgic. All transitions very slow due to back pain. WOUND STATUS: RIGHT LATERAL: Wound 02/29/24 1600 Venous Ulcer Calf Distal;Right;Lateral (Active) Assessments 06/26/2024 3:00 PM Site Assessment Red;Yellow Elif-Wound Assessment Scarred;Hyperpigmented Wound Length (cm) 0.6 cm Wound Width (cm) 0.8 cm Wound Surface Area (cm^2) 0.48 cm^2 Wound Depth (cm) 0.1 cm Wound Volume (cm^3) 0.048 cm^3 Wound Healing % 99 Drainage Description Serosanguineous Drainage Amount Small Odor None Elif-Wound Treatment Vaseline;Zinc Oxide Treatments PT Debridement;Cleansed;PT Mist Therapy;Mechanical Debridement;PT Compression Dressing Changed Changed State of Healing Early/partial granulation Wound Bed Granulation (%) 95 % Wound Bed Slough (%) 5 % Non-staged Wound Description Partial thickness No associated orders. TREATMENT: Conservative Sharp Debridement <20cm (19367): 3 mm curette used to remove slough and reduce fibrotic tissue on the lateral RIGHT LE wound. Careful reduction of the elif-wound exudative crust/hyperkeratotic tissue. Skilled interventions: -Knowledge of tissue anatomy and wound care -Skilled judgment was provided after wound assessment in selection of appropriate interventions. -Skilled hands-on technique for active wound care/sharp debridement with appropriate instruments todebride/remove devitalized and/or necrotic tissue to promote wound healing. -Assessment of pain tolerance throughout the session, use of Topical lidocaine prn -<20cm2 nonviable tissue removed Nonselective Debridement (38097): The dressing was removed. The RIGHT LE was cleansed with warm soapy water with Chlorhexidine. Mechanical debridement via towel and gauze swiping to remove loose slough on the lateral wound bed, remove skin scales and accumulated drainage/exudative crusts elif-woundmedially and laterally, and reduce elif-wound ointment residue and Endoform remnants where indicated. Manual removal of peeling hyperkeratotic tissue as able. Post care, wounds rinsed with NS and patted dry. Skilled interventions: -Skilled knowledge of wound care and skilled application of knowledge for optimal wound healing environment and preventing/ minimizing adverse side effects. -Skilled education on rationale for dressing choice for reinforcement and improved compliance at home. -Skilled judgement and knowledge for optimization of wound care and skin integrity. -Skilled gentle cleansing and mechanical debridement to remove loose non-viable tissue, reduce bio-burden and promote improved global skin integrity -Dressing management/application: Vaseline applied to the global intact skin of the RIGHT LE. Zinc oxide to the elif-wound tissue of the lateral wound. Scant triple antibiotic ointment to the wound bed laterally + NS moistened ENDOFORM to the wound + Acticoat + Compression dressing as below. Modalities: Noncontact Ultrasound MIST: 12 min total to the RIGHT LE wound Skilled interventions: -Proper administration and selection of modality based on clinical presentation, deficits, and needs -Patient response monitored throughout treatment Compression Therapy (Multilayer Venous Wound Compression System) (53547): Skilled interventions: -Skilled knowledge of wound care and skilled application of knowledge for optimal wound healing environment and preventing/minimizing adverse side effects. -Skilled education on rationale for dressing choice for reinforcement and improved compliance at home. -Compression dressing Profore Lite (20-30mmHg) applied to Right LE with ABD pad laterally in between Profore layers. -Toes are warm and pink before and post boot application. -Reinforced with the patient that if she exhibits a change in color to the extremity, change in temperature, increased pain, or the dressing becomes wet, the patient was instructed to remove the dressing. If patient needs to remove the dressing, she was instructed to apply dressings at home per herusual. Self Care/ Home Management (84792): education on removal of the compression dressing in 7 days. Once removed, may shower. Thoroughly rinse the remaining wound and pat dry. Apply piece of Acticoat + silicone adhesive dressing + global moisturizing cream + compression (Support stocking vs Farrow wrapvs Tubigrip vs ANTONIO wrap). Need to elevate LE when possible. Imperative need for compression reinforced. Discussed current wound status and projected further improvement. Patient to follow up with wound care in [place] pending wound status. Skilled Intervention Skilled judgment in the selection of proper self care/home management based on clinical presentation, deficits, and needs. Educated the patient regarding recommendations and provided verbal and feedback instruction to facilitate compliance. Reviewed patient specific diagnosis in relation to activities of daily living/home management. Post Treatment/Symptom(s): See above Adverse event? No Billing: Noncontact Ultrasound Mist (36464): no charge (bundled) Selective Sharp Debridement <20cm (12489): 1 unit Nonselective debridement (73088): no charge (bundled) Self care/ Home Management (13005): 1:1 time: 1 unit: 8-22 mins Multi-Layer Venous Wound Compression System (22494): 1 unit (untimed) Session Start Time : 1434 Session Stop Time : 1530 Total Time: 56 minutes Amanda [facility]oto PT [facility] History of Present illness Narrative* Amanda Soto, PT - 06/18/2024 9:25 AM EDT Episode Visit Count: 16 Medicare visits current year: 16 Therapist That Will Accept/Oversee The Plan Of Care: Amanda Soto Start of Care Date: 01/24/24 Onset Date: 01/23/21 Plan of Care Certification Date: 05/28/24 Next Certification Due Date: 08/27/24 Patient Identified by Name and Date of : Yes [facility] PHYSICAL THERAPY WOUND TREATMENT NOTE ASSESSMENT: patient's RIGHT LE is progressing nicely. The medial wound cluster remains closed and is stable. The lateral wound is reducing in size. PLAN FOR NEXT VISIT: recheck next week. Continue with active wound care until patient departs for [place] SUBJECTIVE: Patient having much more issues with her back than her leg. States she still has some tenderness/soreness/twinges of pain, but her back is bothering her more than anything else. Still planning on leaving for [place] on Jun 29. Pain Tool: Verbal (Numeric Rating or Visual Analog Scale) Pain Level: 2 Pain Location: Leg-Right Description: Sore, Tenderness Duration: Intermittent Intervention/Comfort measure: Medication, Reposition, Relaxation, Distractions, Emotional Support/Reassurance, Positioning, Other: See comment (compression and elevation) Response To Pain Intervention: minor soreness to the R LE wound. Back hurts worse than the wound OBJECTIVE: Patient presents for follow-up wound care treatment ambulating with her Rollator. Gait is less antalgic with the Rollator, but spine is still very shifted/scoliotic. The compression remains intact on the RIGHT LE and is in good position. WOUND STATUS: RIGHT medial lower leg remains closed and stable. RIGHT lateral : Wound 02/29/24 1600 Venous Ulcer Calf Distal;Right;Lateral (Active) Assessments 06/18/2024 9:00 AM Site Assessment Red;Yellow Elif-Wound Assessment Scarred;Hyperpigmented Wound Length (cm) 0.9 cm Wound Width (cm) 1 cm Wound Surface Area (cm^2) 0.9 cm^2 Wound Depth (cm) 0.1 cm Wound Volume (cm^3) 0.09 cm^3 Wound Healing % 98 Drainage Description Serosanguineous Drainage Amount Small Odor None Elif-Wound Treatment Vaseline;Zinc Oxide Treatments PT Debridement;Cleansed;Mechanical Debridement;PT Compression;PT Mist Therapy Dressing Changed Changed State of Healing Early/partial granulation Wound Bed Granulation (%) 90 % Wound Bed Slough (%) 10 % Non-staged Wound Description Partial thickness No associated orders. TREATMENT: Conservative Sharp Debridement <20cm (88105): 3 mm curette used to remove slough and reduce fibrotic tissue on the lateral RIGHT LE wound. Careful reduction of the elif-wound exudative crust/hyperkeratotic tissue. Skilled interventions: -Knowledge of tissue anatomy and wound care -Skilled judgment was provided after wound assessment in selection of appropriate interventions. -Skilled hands-on technique for active wound care/sharp debridement with appropriate instruments todebride/remove devitalized and/or necrotic tissue to promote wound healing. -Assessment of pain tolerance throughout the session, use of Topical lidocaine prn -<20cm2 nonviable tissue removed Nonselective Debridement (27656): The dressing was removed. The RIGHT LE was cleansed with warm soapy water with Chlorhexidine. Mechanical debridement via towel and gauze swiping to remove loose slough on the lateral wound bed, remove skin scales and accumulated drainage/exudative crusts elif-woundmedially and laterally, and reduce elif-wound ointment residue and Endoform remnants where indicated. Manual removal of peeling hyperkeratotic tissue as able. Post care, wounds rinsed with NS and patted dry. Skilled interventions: -Skilled knowledge of wound care and skilled application of knowledge for optimal wound healing environment and preventing/ minimizing adverse side effects. -Skilled education on rationale for dressing choice for reinforcement and improved compliance at home. -Skilled judgement and knowledge for optimization of wound care and skin integrity. -Skilled gentle cleansing and mechanical debridement to remove loose non-viable tissue, reduce bio-burden and promote improved global skin integrity -Dressing management/application: Vaseline applied to the global intact skin of the RIGHT LE. Zinc oxide to the elif-wound tissue of the lateral wound. Scant triple antibiotic ointment to the wound bed laterally + NS moistened ENDOFORM to the wound + Acticoat + Compression dressing as below. Modalities: Noncontact Ultrasound MIST: 12 min total to the RIGHT LE wound Skilled interventions: -Proper administration and selection of modality based on clinical presentation, deficits, and needs -Patient response monitored throughout treatment Compression Therapy (Multilayer Venous Wound Compression System) (62314): Skilled interventions: -Skilled knowledge of wound care and skilled application of knowledge for optimal wound healing environment and preventing/minimizing adverse side effects. -Skilled education on rationale for dressing choice for reinforcement and improved compliance at home. -Compression dressing Profore Lite (20-30mmHg) applied to Right LE with ABD pad laterally in between Profore layers. -Toes are warm and pink before and post boot application. -Reinforced with the patient that if she exhibits a change in color to the extremity, change in temperature, increased pain, or the dressing becomes wet, the patient was instructed to remove the dressing. If patient needs to remove the dressing, she was instructed to apply dressings at home per herusual. Post Treatment/Symptom(s): See above Adverse event? No Billing: Noncontact Ultrasound Mist (02310): no charge (bundled) Selective Sharp Debridement <20cm (07320): 1 unit Nonselective debridement (95695): no charge (bundled) Multi-Layer Venous Wound Compression System (63856): 1 unit (untimed) Session Start Time : 836 Session Stop Time : 923 Total Time: 47 minutes Amanda Soto PT [facility] History of Present illness Narrative* Amanda Soto, PT - 06/12/2024 1:30 PM EDT Episode Visit Count: 15 Medicare visits current year: 15 Therapist That Will Accept/Oversee The Plan Of Care: Amanda Soto Start of Care Date: 01/24/24 Onset Date: 01/23/21 Plan of Care Certification Date: 05/28/24 Next Certification Due Date: 08/27/24 Patient Identified by Name and Date of : Yes [facility] PHYSICAL THERAPY WOUND TREATMENT NOTE ASSESSMENT: patient's RIGHT LE with much overall improvement. Her medial wound cluster is now closed, but remains fragile. The lateral wound is much smaller but remains painful Continued wound care imperative. Patient to be relocating to [place] soon and could benefit from as much wound healing as able prior to her departure. PLAN FOR NEXT VISIT: continue with active wound care SUBJECTIVE: Patient states her back is a major issue today. Has to attend PT prior to getting injections. Really feels like her back is out today. Still with soreness of the RIGHT LE wound area on the side. Pain Tool: Verbal (Numeric Rating or Visual Analog Scale) Pain Level: 3 Pain Location: Leg-Right Description: Sore Duration: Continuous Intervention/Comfort measure: Medication, Reposition, Relaxation, Distractions, Emotional Support/Reassurance, Positioning, Other: See comment (compression and elevation) Response To Pain Intervention: back hurts more than wound/leg: wound area 1- 2/10. tender OBJECTIVE: Patient presents for follow-up wound care treatment with the compression dressing intact. Gait is very labored and antalgic due to back issues. Patient is mod-I with a cane, but does reachfor external support to initiate gait. WOUND STATUS: Wound 02/29/24 1600 Venous Ulcer Calf Distal;Right;Lateral (Active) Assessments 06/12/2024 1:00 PM Site Assessment Red;Yellow;[place] Elif-Wound Assessment Moist ;Painful;Scarred;Hyperpigmented;Other (Comment) (adherent crust/hyperkeratotic tissue) Shape irregular Wound Length (cm) 1 cm Wound Width (cm) 1.4 cm Wound Surface Area (cm^2) 1.4 cm^2 Wound Depth (cm) 0.1 cm Wound Volume (cm^3) 0.14 cm^3 Wound Healing % 97 Drainage Description Serosanguineous Drainage Amount Small Odor None Elif-Wound Treatment Zinc Oxide;Vaseline Treatments PT Debridement;Cleansed;Mechanical Debridement;PT Compression;PT Mist Therapy Dressing Changed Changed State of Healing Early/partial granulation Wound Bed Granulation (%) 85 % Wound Bed Slough (%) 15 % Non-staged Wound Description Partial thickness No associated orders. Wound 02/29/24 1600 Venous Ulcer Calf Distal;Right;Medial (Active) Assessments 06/12/2024 1:00 PM Site Assessment Hyperpigmentation Elfi-Wound Assessment Hyperpigmented;Fragile;Scarred Shape cluster is closed, discolored and fragile, but closed. Wound Length (cm) 0 cm Wound Width (cm) 0 cm Wound Surface Area (cm^2) 0 cm^2 Wound Depth (cm) 0 cm Wound Volume (cm^3) 0 cm^3 Wound Healing % 100 Drainage Description Other (Comment) (scant dry drainage on dressing) Drainage Amount Scant Odor None Elif-Wound Treatment Zinc Oxide;Vaseline Treatments Mechanical Debridement;PT Mist Therapy;PT Compression Dressing Changed Changed State of Healing Closed wound edges Wound Bed Epithelium (%) 100 % Non-staged Wound Description Not applicable (closed) No associated orders. TREATMENT: Conservative Sharp Debridement <20cm (29481): 3 mm curette used to remove slough and reduce fibrotic tissue on the lateral RIGHT LE wound. Careful reduction of the elif-wound exudative crust/hyperkeratotic tissue. Skilled interventions: -Knowledge of tissue anatomy and wound care -Skilled judgment was provided after wound assessment in selection of appropriate interventions. -Skilled hands-on technique for active wound care/sharp debridement with appropriate instruments todebride/remove devitalized and/or necrotic tissue to promote wound healing. -Assessment of pain tolerance throughout the session, use of Topical lidocaine prn -<20cm2 nonviable tissue removed Nonselective Debridement (40476): The dressing was removed. The RIGHT LE was cleansed with warm soapy water with Chlorhexidine. Mechanical debridement via towel and gauze swiping to remove loose slough on the lateral wound bed, remove skin scales and accumulated drainage/exudative crusts elif-woundmedially and laterally, and reduce elif-wound ointment residue and Endoform remnants where indicated. Post care, wounds rinsed with NS and patted dry. Skilled interventions: -Skilled knowledge of wound care and skilled application of knowledge for optimal wound healing environment and preventing/ minimizing adverse side effects. -Skilled education on rationale for dressing choice for reinforcement and improved compliance at home. -Skilled judgement and knowledge for optimization of wound care and skin integrity. -Skilled gentle cleansing and mechanical debridement to remove loose non-viable tissue, reduce bio-burden and promote improved global skin integrity -Dressing management/application: Vaseline applied to the global intact skin of the RIGHT LE. Zinc oxide to the elif-wound tissue of the lateral wound and globally medially to protect newly formed epithelial tissue. Scant triple antibiotic ointment to the wound bed laterally + NS moistened ENDOFORMto the wound + Acticoat + Compression dressing as below. Modalities: Noncontact Ultrasound MIST: 12 min total to the RIGHT LE wounds (7 min to the lateral wound and 5 min to the medial wound cluster) Skilled interventions: -Proper administration and selection of modality based on clinical presentation, deficits, and needs -Patient response monitored throughout treatment Compression Therapy (Multilayer Venous Wound Compression System) (20154): Skilled interventions: -Skilled knowledge of wound care and skilled application of knowledge for optimal wound healing environment and preventing/minimizing adverse side effects. -Skilled education on rationale for dressing choice for reinforcement and improved compliance at home. -Compression dressing Profore Lite (20-30mmHg) applied to Right LE with ABD pad shared between the wounds and positioned between the layers of the compression dressing for added drainage support. -Toes are warm and pink before and post boot application. -S&S of intolerance reviewed. Reinforced with the patient that if she exhibits a change in color to the extremity, change in temperature, increased pain, or the dressing becomes wet, the patient was instructed to remove the dressing. If patient needs to remove the dressing, she was instructed to apply dressings at home per her usual. Post Treatment/Symptom(s): See above Adverse event? No Billing: Noncontact Ultrasound Mist (76206): no charge (bundled) Selective Sharp Debridement <20cm (54707): 1 unit Nonselective debridement (91540): no charge (bundled) Multi-Layer Venous Wound Compression System (77483): 1 unit (untimed) Session Start Time : 1228 Session Stop Time : 1328 Total Time: 60 minutes Amanda Soto [facility]-12-2024 NoteHNO ID: [id number] Author: MONSE MERLOS PA-C Service: ? Author Type: Physician Hat Blocking Operator Type: Progress Notes Filed: 06/17/2024 19:38 Note Text: Monse Merlos [facility] [address] [place] [address] 06/12/2024 ASSESSMENT AND PLAN: Assessment : Encounter Diagnosis ICD-10-CM 1. Degenerative scoliosis M41.50 CONSULT TO PHYSICAL THERAPY methocarbamol (ROBAXIN) 500 mg tablet 2. Lumbar radiculopathy M54.16 3. Chronic right-sided low back pain with right-sided sciatica M54.41 G89.29 Discussion: Ms. Ga is a 73-year-old female here for evaluation of low back pain and RLE symptoms. Low back pain is definitely predominant today. 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 She has had wound healing problems. She has LBP at L-S junction and bilat PSIS and tenderness over the GT bilat. 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 The patient reports that she had had an L3 wedge compression fracture. It is of unknown age and configuration. She was told this by an outside care facility that evaluated her with x-rays EXAM Highlights: Exam as noted below. Significant issues with walking and balance and steadiness on her feet as her primary finding along with fairly severe pain on palpation in the entire lumbosacral region and posterior pelvic bony prominences. The right foot was wrapped for wound care issues and she strongly favor that as she attempted to walk. She used a single post cane but was still quite unsteady. IMAGING: No spine imaging is available for review today. She had some plain radiographs done at [facility], but did not bring those here for review today. SUMMARY/PLAN: She will try to provide her outside lumbar plain radiographs for my future review She will start supervised PT as recommended here and then if she travels down to [place] as his her normal winter routine, she would picker the PT there and finish out her care and that region instead. Otherwise here, I would have her finish PT and x-rays be documented in her chart and then we could consider MRI study and possible injections in the future if a lesion that corresponds to her symptoms is identified Plan : REFERAL FOR SERVICES: -Physical therapy will be instituted. MEDICATIONS: -See prescribed medication list for this encounter. ACTIVITY RECOMMENDATIONS: -The patient is encouraged to avoid bed rest and maintain normal activity. FOLLOW-UP: -The patient is instructed to return after six weeks of therapy. -The patient is instructed to return sooner if problems warrant. This document has been created with the use of voice recognition technology. It may contain inaccuracies: (e.g. misspellings, inaccurate syntax or word sense) that have escaped review. Time spent: 50 minutes today with this patient visit. This includes [id number]-hf-[id number] time, review of chart records regarding conservative care history, spine-pertinent imaging, and communication/care coordination with referring provider, problem-specific history-taking and counseling/education regarding treatment options. cc: Marisela Mccarty [address] [id number] Results of consultation to be transmitted via electronic medical record for those providers who practice within [facility] or with access to [employer] via [facility], or via letter. ######################################################################## CHIEF COMPLAINT: Patient is here for the lower back pain, both hips, and right upper leg pain. Has this pain for years but in the last 2 months, this pain got worse. Level of the pain is at 8/10. Sometimes pain will shoot down to the right upper leg. Laying flat on her back, helps her with the pain. Heating pad helps too. Pain wakes her up. HPI: see Discussion above History of bowel or bladder dysfunction (not IBS or constipation): No History of previous spinal surgery: No History of spinal fracture: Yes, L3 Work Status: retired NON-OPERATIVE CARE: Medication(s): She has tried the following for relief of her symptoms: OTC Tylenol Ultram/tramadol Neurontin/gabapentin Physical Therapy: She has not had physical therapy for her current symptoms. Spinal Injections: She has not gotten prior spinal injections. Other: None Current Outpatient Medications Medication Sig Dispense Refill gabapentin (NEURONTIN) 300 mg capsule 300 mg two times a day. traMADol (ULTRAM) 50 mg tablet Take 1 tablet by mouth every 6 hours as needed. LASIX 40 mg tablet Take 40 mg by mouth two times a day. acetaminophen (TYLENOL) 325 mg cap Take by mouth. anastrozole (ARIMIDEX) 1 mg tablet jimmy (more content not included)...[facility]10-09-[facility]24 History of Present illness Narrative* Monse Merlos PA-C - 06/12/2024 10:14 AM EDT Images from the original note were not included. Monse Merlos PA-C [facility] [address] [facility] [address] [place] [address] 06/12/2024 ASSESSMENT AND PLAN: Assessment : Encounter Diagnosis ICD-10-CM 1. Degenerative scoliosis M41.50 Discussion: Ms. Ga is a 73-year-old female here for evaluation of low back pain and RLE symptoms. Low back pain is definitely predominant today. 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 She has had wound healing problems. She has LBP at L-S junction and bilat PSIS and tenderness over the GT bilat. 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 The patient reports that she had had an L3 wedge compression fracture. It is of unknown age and configuration. She was told this by an outside care facility that evaluated her with x-rays EXAM Highlights: Exam as noted below. Significant issues with walking and balance and steadiness onher feet as her primary finding along with fairly severe pain on palpation in the entire lumbosacral region and posterior pelvic bony prominences. The right foot was wrapped for wound care issues and she strongly favor that as she attempted to walk. She used a single post cane but was still quite unsteady. IMAGING: No spine imaging is available for review today. She had some plain radiographs done at [facility], but did not bring those here for review today. SUMMARY/PLAN: She will try to provide her outside lumbar plain radiographs for my future review She will start supervised PT as recommended here and then if she travels down to [place] as his hernormal winter routine, she would picker the PT there and finish out her care and that region instead. Otherwise here, I would have her finish PT and x-rays be documented in her chart and then we could consider MRI study and possible injections in the future if a lesion that corresponds to her symptoms is identified Plan : REFERAL FOR SERVICES: -Physical therapy will be instituted. MEDICATIONS: -See prescribed medication list for this encounter. ACTIVITY RECOMMENDATIONS: -The patient is encouraged to avoid bed rest and maintain normal activity. FOLLOW-UP: -The patient is instructed to return after six weeks of therapy. -The patient is instructed to return sooner if problems warrant. This document has been created with the use of voice recognition technology. It may contain inaccuracies: (e.g. misspellings, inaccurate syntax or word sense) that have escaped review. Time spent: 50 minutes today with this patient visit. This includes [id number] time, review of chart records regarding conservative care history, spine- pertinent imaging, and communication/care coordination with referring provider, problem-specific history-taking and counseling/education regarding treatment options. cc: Marisela Mccarty [address] [address] Results of consultation to be transmitted via electronic medical record for those providers who practice within [facility] or with access to [employer] via [facility], or via letter. ######################################################################## CHIEF COMPLAINT: Patient is here for the lower back pain, both hips, and right upper leg pain. Has this pain for years but in the last 2 months, this pain got worse. Level of the pain is at 8/10. Sometimes pain will shoot down to the right upper leg. Laying flat on her back, helps her with the pain. Heating pad helps too. Pain wakes her up. HPI: see Discussion above History of bowel or bladder dysfunction (not IBS or constipation): No History of previous spinal surgery: No History of spinal fracture: Yes, L3 Work Status: retired NON-OPERATIVE CARE: Medication(s): She has tried the following for relief of her symptoms: OTC Tylenol Ultram/tramadol Neurontin/gabapentin Physical Therapy: She has not had physical therapy for her current symptoms. Spinal Injections: She has not gotten prior spinal injections. Other: None Current Outpatient Medications Medication Sig Dispense Refill gabapentin (NEURONTIN) 300 mg capsule 300 mg two times a day. traMADol (ULTRAM) 50 mg tablet Take 1 tablet by mouth every 6 hours as needed. LASIX 40 mg tablet Take 40 mg by mouth two times a day. acetaminophen (TYLENOL) 325 mg cap Take by mouth. anastrozole (ARIMIDEX) [address] (PROTONIX) 40 mg tablet Take 1 tablet by mouth once daily. nadolol (CORGARD) 20 mg tablet TAKE ONE TABLET BY MOUTH EVERY DAY 30 tablet 5 potassium chloride ER (K-DUR, KLOR-CON) 20 mEq tablet Take 20 mEq by mouth two times a day. 3 spironolactone (ALDACTONE) 50 mg tablet Take 1 tablet by mouth twice daily. alendronate (FOSAMAX) 70 mg tablet Take 1 tablet by mouth one time a week. (Patient not taking: Reported on 06/12/2024) diclofenac sodium (VOLTAREN) 1 % topical gel Apply 2 g to affected area four times daily as needed.(Patient not taking: Reported on 06/12/2024) 100 Tube 2 No current facility-administered medications for this visit. Allergies: Clarithromycin (Bulk) and Steroids [Betamethasone Dipropionate] PAST MEDICAL HISTORY Diagnosis Date Arthritis Cirrhosis (HCC) Cirrhosis (HCC) Edema Flexural atopic dermatitis Inflamed seborrheic keratosis Liver disease Multiple nevi PMH - PAST MEDICAL HISTORY OF 01/24/08 pancreatitis PMH - PAST MEDICAL HISTORY OF htn PMH - PAST MEDICAL HISTORY OF hx varicose veins PMH - PAST MEDICAL HISTORY OF 05/17/08 pulmonary embolus- postop left TKA Seborrheic keratoses Solar lentiginosis PAST SURGICAL HISTORY Procedure Laterality Date PARTIAL HIP REPLACEMENT Left 10/2020 PAST SURGICAL HISTORY OF 09/04/1991 JULIETA/BSO for fibroids PAST SURGICAL HISTORY OF tonsillectomy PAST SURGICAL HISTORY OF 05/14/2008 Left TKA PAST SURGICAL HISTORY OF 08/29/2011 R TKA Social History Tobacco Use Smoking status: Never Smokeless tobacco: Never Substance Use Topics Alcohol use: Yes Comment: 3 glasses of wine daily-quit 05/2016 Drug use: No FAMILY HISTORY Problem Relation Age of Onset None Mother Dementia Mother Diabetes Father Heart Father Melanoma Father Melanoma Brother REVIEW OF SYSTEMS: Constitutional: (-) Fever/Chills (-) Night Sweats (+) Weight Gain (-) Weight Loss Gastrointestinal: (-) Abdominal Pain (-) Diarrhea (-) Constipation (-) Heart Burn Cardiovascular: (-) Chest Pain (-) Palpitations (-) Lightheadedness (-) Hx Heart Surgery/Stent Respiratory: (+) Short of Breath (-) Cough (-) Snoring Neurologic: (-) Headache (-) Blurry Vision (-) Fainting Skin: (-) Rashes (-) Itching (+) Other Lesions Psychiatric: (-) Depression (-) Anxiety (-) Suicidal Thoughts Genitourinary: (-) Frequency (+) Urgency Endocrine: (-) Thyroid Disorder (-) Diabetes Hematologic: (-) Prolonged Bleeding (+) Easy Bruising ################################################################################ ################################################# PHYSICAL EXAM: Blood pressure 126/63, pulse (!) 52, height 157.5 cm (5' 2), weight 69 kg (152 lb 1.9 oz), SpO2 99%. Body mass index is 27.82 kg/m . General: Patient is a(n) average historian. The patient appears approximately the recorded age and is sitting uncomfortably in the examining room. The patient is average height in stature and is average weight in appearance. This individual has great difficulty arising from a sitting position and does have difficulty acquiring a full, upright position when standing. Station and Gait: flexed posture and antalgic gait leaning forward, favoring the right lower extremity, short strides, wide-based, shuffling gait, and slow pace. Uses a cane in the The patient is unable to walk in a tandem gait. MENTAL STATUS EXAMINATION: The patient was neatly dressed and well groomed. The patient had good eye contact and rapport was average to establish. The patient appeared to be alert and oriented in all spheres. The patient's overall medical judgment appeared to be fair.The patient's motivation for treatment was judged based ontoday's encounter to be fair. SPINE: Lumbar Lordosis: Decreased/flattened Thoracic Kyphosis: Increased RANGE OF MOTION: Not tested due to being quite unsteady on her feet PALPATION TENDERNESS: Severe tenderness at: lumbar region and posterior pelvis Hyperesthesia present: No Regional symptoms present: No Increased pain with axial loading: No Distraction: Normal Pain responses: elevated NEUROLOGIC EXAM: MOTOR: Requires verbal cues to minimize cog-wheel or give-way resistance: No Hip Flexor R: 4/5 L: 5/5 Knee Extension R: 4/5 L: 5/5 Foot Dorsiflexion R: 5/5 L: 5/5 Foot Plantar Flexion R: 5/5 L: 5/5 Ext Hallicus Longus R: 5/5 L: 5/5 Toe Extensors R: 5/5 L: 5/5 SENSATION to Light Touch: Lumbar: L2-S1 symmetrically normal today, but she does complain roughly of L5 distribution right sided symptoms intermittently. REFLEXES: Lower Extremity: All Lower Extremity reflexes symmetrically normal. Clonus: R: 0 beats/Normal L: 0 beats/Normal VASCULAR: Skin appearance: Right: Venous stasis discoloration noted Left: Warm/pink Capillary refill: Right: 3-4 seconds Left: brisk ADDITIONAL MUSCULOSKELETAL EXAM: HIP/PELVIS EXAM: Tenderness over the PSIS: Right: Yes Left: Yes Greater Trochanteric pain: Right: Yes Left: Yes Motion restriction: Right: No Left: No Pain: Right: Yes, in low back only Left: No SPECIAL TESTS: Straight Leg Raise: negative bilaterally Contralateral Straight Leg Raise: negative bilaterally IMAGING STUDIES: See discussion above [facility] History of Present illness Narrative* Amanda Soto, PT - 06/04/2024 10:31 AM EDT Episode Visit Count: 14 Medicare visits current year: 14 WOUND Therapist That Will Accept/Oversee The Plan Of Care: Amanda Soto Start of Care Date: 01/24/24 Onset Date: 01/23/21 Plan of Care Certification Date: 05/28/24 Next Certification Due Date: 08/27/24 Patient Identified by Name and Date of : Yes [facility] PHYSICAL THERAPY WOUND TREATMENT NOTE ASSESSMENT: patient's RIGHT LE continues to show good improvement. The medial cluster of 3 wounds is essentially down to 1 area remaining, and very small. The lateral wound remains tender to the touch, but size reduction and shape change is noted due to epithelial migration. Continued wound care iswarranted. Patient to be relocating back to [place], tentatively at the end of June. Continued wound care to continue until she relocates. PLAN FOR NEXT VISIT: continue with active wound care. SUBJECTIVE: Patient states her back is a little better but still problematic. Her RIGHT LE continues to be painful, but less than before. Pain Tool: Verbal (Numeric Rating or Visual Analog Scale) Pain Level: 2 Pain Location: Leg-Right Description: Sore, Aching, Tenderness Duration: Continuous Intervention/Comfort measure: Medication, Reposition, Relaxation, Distractions, Exercise, EmotionalSupport/Reassurance, Positioning, Other: See comment (compression and elevation) Response To Pain Intervention: 2-11/11 on exit, R wound pain OBJECTIVE: Patient presents for follow-up wound care treatment ambulating with her cane. Spine is scoliotic and gait is antalgic due to back/hip pain. WOUND STATUS: Wound 02/29/24 1600 Venous Ulcer Calf Distal;Right;Lateral (Active) Assessments 06/04/2024 10:00 AM Site Assessment Red;Yellow Elif-Wound Assessment Moist ;Scarred;Painful;Hyperpigmented Wound Length (cm) 1.5 cm Wound Width (cm) 2 cm Wound Surface Area (cm^2) 3 cm^2 Wound Depth (cm) 0.1 cm Wound Volume (cm^3) 0.3 cm^3 Wound Healing % 94 Drainage Description Serosanguineous Drainage Amount Moderate Odor None Elif-Wound Treatment Zinc Oxide;Vaseline Treatments PT Debridement;Cleansed;Mechanical Debridement;PT Compression;PT Mist Therapy Dressing Changed Changed State of Healing Early/partial granulation Wound Bed Granulation (%) 85 % Wound Bed Slough (%) 15 % Non-staged Wound Description Partial thickness No associated orders. Wound 02/29/24 1600 Venous Ulcer Calf Distal;Right;Medial (Active) Assessments 06/04/2024 10:00 AM Site Assessment Red;Yellow;Arroyo Elif-Wound Assessment Hyperpigmented;Fragile;Scarred Shape cluster of wound: proximal wound closed. Distal wound essentially closed. new irritation between the wounds is stable and dry. The more distal/posterior wound wound per below Wound Length (cm) 1.2 cm Wound Width (cm) 0.5 cm Wound Surface Area (cm^2) 0.6 cm^2 Wound Depth (cm) 0.1 cm Wound Volume (cm^3) 0.06 cm^3 Wound Healing % 99 Drainage Description Serosanguineous Drainage Amount Small Odor None Elif-Wound Treatment Zinc Oxide;Vaseline Treatments PT Debridement;Cleansed;Mechanical Debridement;PT Mist Therapy;PT Compression Dressing Changed Changed State of Healing Early/partial granulation Wound Bed Granulation (%) 80 % (remaining wound only) Wound Bed Slough (%) 20 % (slough and fibrotic tissue) Non-staged Wound Description Partial thickness No associated orders. TREATMENT: Conservative Sharp Debridement <20cm (83914): 3 mm curette and a scalpel for more meticulous debridement efforts used to remove slough and reduce fibrotic tissue on all of the wounds on the RIGHT LE. Skilled interventions: -Knowledge of tissue anatomy and wound care -Skilled judgment was provided after wound assessment in selection of appropriate interventions. -Skilled hands-on technique for active wound care/sharp debridement with appropriate instruments todebride/remove devitalized and/or necrotic tissue to promote wound healing. -Assessment of pain tolerance throughout the session, use of Topical lidocaine prn -<20cm2 nonviable tissue removed Nonselective Debridement (76174): The dressing was removed. The RIGHT LE was cleansed with warm soapy water with Chlorhexidine. Mechanical debridement via towel and gauze swiping to remove loose slough on the wound beds, remove skin scales and accumulated drainage/exudative crusts elif-wound, and reduce elif- wound ointment residue and Endoform remnants. Post care, wounds rinsed with NS and patteddry. Skilled interventions: -Skilled knowledge of wound care and skilled application of knowledge for optimal wound healing environment and preventing/ minimizing adverse side effects. -Skilled education on rationale for dressing choice for reinforcement and improved compliance at home. -Skilled judgement and knowledge for optimization of wound care and skin integrity. -Skilled gentle cleansing and mechanical debridement to remove loose non-viable tissue, reduce bio-burden and promote improved global skin integrity -Dressing management/application: Vaseline applied to the global intact skin of the RIGHT LE. Zinc oxide to the elif-wound tissue of the wounds. Scant triple antibiotic ointment to the wound beds + NS moistened ENDOFORM to all wounds + Acticoat + Compression dressing as below. Modalities: Noncontact Ultrasound MIST: 14 min total to the RIGHT LE wounds (7 min to the lateral wound and 7 min to the medial wound cluster) Skilled interventions: -Proper administration and selection of modality based on clinical presentation, deficits, and needs -Patient response monitored throughout treatment Compression Therapy (Multilayer Venous Wound Compression System) (15310): Skilled interventions: -Skilled knowledge of wound care and skilled application of knowledge for optimal wound healing environment and preventing/minimizing adverse side effects. -Skilled education on rationale for dressing choice for reinforcement and improved compliance at home. -Compression dressing Profore Lite (20-30mmHg) applied to Right LE with ABD pad shared between the wounds and positioned between the layers of the compression dressing for added drainage support. -Toes are warm and pink before and post boot application. -S&S of intolerance reviewed. Reinforced with the patient that if she exhibits a change in color to the extremity, change in temperature, increased pain, or the dressing becomes wet, the patient was instructed to remove the dressing. If patient needs to remove the dressing, she was instructed to apply dressings at home per her usual. Post Treatment/Symptom(s): See above Adverse event? No Billing: Noncontact Ultrasound Mist (37287): no charge (bundled) Selective Sharp Debridement <20cm (22598): 1 unit Nonselective debridement (06064): no charge (bundled) Multi-Layer Venous Wound Compression System (75162): 1 unit (untimed) Session Start Time : 935 Session Stop Time : 1030 Total Time: 55 minutes Amanda Soto PT [facility] of Present illness Narrative* Amanda Soto, PT - 05/28/2024 10:45 AM EDT Images from the original note were not included. Episode Visit Count: 13 Medicare visits current year: 13 Therapist That Will Accept/Oversee The Plan Of Care: Amanda Charles Start of Care Date: 01/24/24 Onset Date: 01/23/21 Plan of Care Certification Date: 05/28/24 Next Certification Due Date: 08/27/24 Patient Identified by Name and Date of : Delio [facility] PHYSICAL THERAPY WOUND TREATMENT AND PROGRESS REPORT PLAN OF CARE UPDATE: Patient's RIGHT LE wounds are making excellent progress. The medial cluster is much smaller segmentally. The lateral wound is much smaller. Patient tolerated the session with much less pain this date. Continued wound care is necessary to further promote healing. Patient with mobility issues relatedto back pain. Functional Gains: increased wound healing as evidenced by reducing size of wounds, decreased nonviable tissue, increased viable tissue, decreased wound exudate, and decreased intensity of pain Goals for Episode of Care Updated: 05/28/2024 to be achieved by 08/27/24 Debride 50% of non-viable tissue from wounds on the RIGHT LE: MET Eliminate all nonviable tissue from wounds on the RIGHT LE: not met Decrease overall wound surface area (length x width) by 50% for wounds on the RIGHT LE: not met butexcellent progress is occurring. Achieve full closure the anterior satellite wound: MET Achieve full closure of the wound of the Medial RIGHT LE: Not met but each segment is much improved. Achieve full closure of the wound of the Lateral RIGHT LE : Not met but good improvement is occurring. 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 PLAN: Follow up for one visit(s) per week for twelve weeks for, Selective debridement <20cm, Nonselective debridement, Noncontact Ultrasound Mist, Compression Therapy (dressing), Patient/ Caregiver Education, and Self Care/ Home Management *patient with plans to return to [place] at the end of the month if able. Continued wound care willcontinue until patient leaves. SUBJECTIVE: Patient states her back remains very bad. Went and had another set of X-rays and found a compression fracture. Was told to change positions frequently. Has a spine appt 06/12/24. My back has been hurting so bad I don't even notice my leg sometimes. Patient rating of condition: better in regards to her RIGHT LE. Pain Tool: Verbal (Numeric Rating or Visual Analog Scale) Pain Level: 4 Pain Location: Leg-Right Description: Sore, Aching Duration: Continuous Intervention/Comfort measure: Medication, Reposition, Relaxation, Distractions, Emotional Support/Reassurance, Exercise, Positioning, Other: See comment (compression and elevation) Response To Pain Intervention: 12/12 on exit, sore;tender PROMIS Scales *noted decrease in functional score related to current back pain/compression fx. 04/09/2024 04/30/2024 05/28/2024 Higher is Better Phys Func - Score 43 (mild dysfunction) 29 (severe dysfunction) Phys Func - Percentile 24 2 Self-Eff Symptom - Score 44 (Average) 48 (Average) Self-Eff Symptom - Percentile 27 42 T-scores: mean of general population = 50. 5 points is clinically meaningfully difference Percentiles provide an indication of how the patient's score ranks in relation to the general population. Higher percentile rankings indicate better function/quality of life. 50th percentile is the average of the general population and indicates half of respondents had a worse score. T-scores: mean of general population = 50. 5 points is clinically meaningfully difference Percentiles provide an indication of how the patient's score ranks in relation to the general population. Higher percentile rankings indicate better function/quality of life. 50th percentile is the average of the general population and indicates half of respondents had a worse score. OBJECTIVE MEASURES WITH LEVEL OF FUNCTION: Patient presents for follow-up wound care treatment with use of a rollator. Spine remains scoliotic/shifted. Gait is slow and flexed. Painful mobility. WOUND STATUS: Wound 02/29/24 1600 Venous Ulcer Calf Distal;Right;Lateral (Active) Assessments 05/28/2024 10:15 AM Site Assessment Yellow;Red Elif-Wound Assessment Fragile;Hyperpigmented;Painful Shape irregular due to epithelial ingrowth Wound Length (cm) 1.6 cm Wound Width (cm) 2.9 cm Wound Surface Area (cm^2) 4.64 cm^2 Wound Depth (cm) 0.1 cm Wound Volume (cm^3) 0.464 cm^3 Wound Healing % 91 Drainage Description Serosanguineous Drainage Amount Moderate Odor None Elif-Wound Treatment Zinc Oxide;Vaseline Treatments PT Debridement;Cleansed;Mechanical Debridement;PT Compression;PT Mist Therapy Dressing Changed Changed State of Healing Early/partial granulation Wound Bed Granulation (%) 75 % Wound Bed Slough (%) 25 % Non-staged Wound Description Partial thickness No associated orders. Wound 02/29/24 1600 Venous Ulcer Calf Distal;Right;Medial (Active) Assessments 05/28/2024 10:15 AM Site Assessment Red;Yellow;Arroyo Elif-Wound Assessment Hyperpigmented;Fragile;Scarred Shape cluster of wounds: proximal: 0.3 x 0.2, distal 0.6 x 0.4, more lateral/posterior: 1.4 x 0.6. One additioanl small irritation/denuded spot between the distal and the more posterior wound Wound Length (cm) 5.6 cm Wound Width (cm) 2.7 cm Wound Surface Area (cm^2) 15.12 cm^2 Wound Depth (cm) 0.1 cm Wound Volume (cm^3) 1.512 cm^3 Wound Healing % 77 Drainage Description Serosanguineous Drainage Amount Small Odor None Elif-Wound Treatment Vaseline;Zinc Oxide Treatments PT Debridement;Cleansed;Mechanical Debridement;PT Mist Therapy;PT Compression Dressing Changed Changed State of Healing Early/partial granulation Wound Bed Granulation (%) 15 % Wound Bed Epithelium (%) 80 % Wound Bed Slough (%) 5 % Non-staged Wound Description Partial thickness No associated orders. TREATMENT: Conservative Sharp Debridement <20cm (47793): 3 mm curette used to selectively remove slough andreduce fibrotic tissue on all of the wounds as able/tolerated. A scalpel was used on the LEFT wounds to meticulously break fibrotic bands in the wound beds. Skilled interventions: -Knowledge of tissue anatomy and wound care -Skilled judgment was provided after wound assessment in selection of appropriate interventions. -Skilled hands-on technique for active wound care/sharp debridement with appropriate instruments todebride/remove devitalized and/or necrotic tissue to promote wound healing. -Assessment of pain tolerance throughout the session, use of Topical lidocaine prn -<20cm2 nonviable tissue removed Nonselective Debridement (49590): The dressing was removed. The RIGHT LE was cleansed with warm soapy water with Chlorhexidine. Mechanical debridement via towel and gauze swiping to remove loose slough on the wound beds, remove skin scales and accumulated drainage/exudative crusts elif-wound, and reduce elif- wound ointment residue and Endoform remnants. Post care, wounds rinsed with NS and patteddry. Skilled interventions: -Skilled knowledge of wound care and skilled application of knowledge for optimal wound healing environment and preventing/ minimizing adverse side effects. -Skilled education on rationale for dressing choice for reinforcement and improved compliance at home. -Skilled judgement and knowledge for optimization of wound care and skin integrity. -Skilled gentle cleansing and mechanical debridement to remove loose non-viable tissue, reduce bio-burden and promote improved global skin integrity -Dressing management/application: Vaseline applied to the global intact skin of the RIGHT LE. Zinc oxide to the elif-wound tissue of the wounds. Scant triple antibiotic ointment to the wound beds + NS moistened ENDOFORM to all wounds + Acticoat + Compression dressing as below. Modalities: Noncontact Ultrasound MIST: 14 min total to the RIGHT LE wounds (7 min to the lateral wound and 7 min to the medial wound cluster) Skilled interventions: -Proper administration and selection of modality based on clinical presentation, deficits, and needs -Patient response monitored throughout treatment Compression Therapy (Multilayer Venous Wound Compression System) (63553): Skilled interventions: -Skilled knowledge of wound care and skilled application of knowledge for optimal wound healing environment and preventing/minimizing adverse side effects. -Skilled education on rationale for dressing choice for reinforcement and improved compliance at home. -Compression dressing Profore Lite (20-30mmHg) applied to Right LE with ABD pad shared between the wounds and positioned between the layers of the compression dressing for added drainage support. -Toes are warm and pink before and post boot application. -S&S of intolerance reviewed. Reinforced with the patient that if she exhibits a change in color to the extremity, change in temperature, increased pain, or the dressing becomes wet, the patient was instructed to remove the dressing. If patient needs to remove the dressing, she was instructed to apply dressings at home per her usual. Post Treatment/Symptom(s): See above Adverse event? No Billing: Noncontact Ultrasound Mist (36307): no charge (bundled) Selective Sharp Debridement <20cm (41817): 1 unit Nonselective debridement (46196): no charge (bundled) Multi-Layer Venous Wound Compression System (37591): 1 unit (untimed) Session Start Time : 947 Session Stop Time : 1042 Total Time: 55 minutes Amanda Soto, PT [facility] History of Present illness Narrative* Amanda Soto, PT - 05/21/2024 10:35 AM EDT Episode Visit Count: 12 Medicare visits current year: 12 Therapist That Will Accept/Oversee The Plan Of Care: Liseth Alanis Start of Care Date: 01/24/24 Onset Date: 01/23/21 Plan of Care Certification Date: 02/29/24 (wound care) Next Certification Due Date: 05/08/24 Patient Identified by Name and Date of : Yes [facility] PHYSICAL THERAPY WOUND TREATMENT NOTE ASSESSMENT: patient's RIGHT LE wounds are making good progress. The most proximal medial wound has early epithelial migration and is expected to close soon. The other 2 wounds medially with great size reduction since last visit. The lateral wound continues to have some mildly hypergranular tissue present. The lateral wound is more sensitive than the medial cluster. Good tolerance to the compression dressing wear. Pain remains an issues, but it is variable. Continued wound care is warranted. Patient with pending return to [place] in late June. PLAN FOR NEXT VISIT: recheck/progress report for wound care. Continue with current regimen as great progress is occuring SUBJECTIVE: Patient still with a lot of back pain. Her RIGHT LE woke her up last night due to burning/throbbing. Pain Tool: Verbal (Numeric Rating or Visual Analog Scale) Pain Level: 5 Pain Location: Leg-Right Description: Burning, Sharp, Throbbing Duration: Continuous Intervention/Comfort measure: Medication, Reposition, Relaxation, Distractions, Emotional Support/Reassurance, Positioning, Other: See comment (compression and elevation) Response To Pain Intervention: 03/13 on the wounds, burning/throbbing OBJECTIVE: Patient presents for follow-up wound care treatment using a Rollator this date due to back pain. The compression dressing remains intact on the RIGHT LE and is in good position and good condition. WOUND STATUS: Wound 02/29/24 1600 Venous Ulcer Calf Distal;Right;Lateral (Active) Assessments 05/21/2024 10:00 AM Site Assessment Yellow;Red;Linares Elif-Wound Assessment Fragile;Painful;Hyperpigmented Wound Length (cm) 2 cm Wound Width (cm) 3 cm Wound Surface Area (cm^2) 6 cm^2 Wound Depth (cm) 0.1 cm Wound Volume (cm^3) 0.6 cm^3 Wound Healing % 88 Drainage Description Serosanguineous Drainage Amount Small Odor None Elif-Wound Treatment Vaseline;Zinc Oxide Treatments PT Debridement;Cleansed;Mechanical Debridement;PT Compression;PT Mist Therapy Dressing Changed Changed State of Healing Early/partial granulation Wound Bed Granulation (%) 75 % Wound Bed Slough (%) 25 % Non-staged Wound Description Partial thickness No associated orders. Wound 02/29/24 1600 Venous Ulcer Calf Distal;Right;Medial (Active) Assessments 05/21/2024 10:00 AM Site Assessment Yellow;Red;Arroyo Elif-Wound Assessment Hyperpigmented;Fragile;Scarred Shape cluster of 3 wound segments: proximal: 0.8 x 0.5, distal: 1 x 0.9, more lateral/posterior: 1.2 x 1.1 Wound Length (cm) 6 cm Wound Width (cm) 3.3 cm Wound Surface Area (cm^2) 19.8 cm^2 Wound Depth (cm) 0.1 cm Wound Volume (cm^3) 1.98 cm^3 Wound Healing % 70 Drainage Description Serosanguineous Drainage Amount Small Odor None Elif-Wound Treatment Vaseline;Zinc Oxide Treatments PT Debridement;Cleansed;Mechanical Debridement;PT Compression;PT Mist Therapy Dressing Changed Changed State of Healing Early/partial granulation Wound Bed Granulation (%) 15 % Wound Bed Epithelium (%) 75 % Wound Bed Slough (%) 10 % Non-staged Wound Description Partial thickness No associated orders. TREATMENT: Conservative Sharp Debridement <20cm (82206): 3 mm curette used to selectively remove slough andreduce fibrotic tissue on all of the wounds as able/tolerated. Skilled interventions: -Knowledge of tissue anatomy and wound care -Skilled judgment was provided after wound assessment in selection of appropriate interventions. -Skilled hands-on technique for active wound care/sharp debridement with appropriate instruments todebride/remove devitalized and/or necrotic tissue to promote wound healing. -Assessment of pain tolerance throughout the session, use of Topical lidocaine prn -<20cm2 nonviable tissue removed Nonselective Debridement (81880): The dressing was removed. The RIGHT LE was cleansed with warm soapy water with Chlorhexidine. Mechanical debridement via towel and gauze swiping to remove loose slough on the wound beds, remove skin scales and accumulated drainage/exudative crusts elif-wound, and reduce elif- wound ointment residue and Endoform remnants. Post care, wounds rinsed with NS and patteddry. Skilled interventions: -Skilled knowledge of wound care and skilled application of knowledge for optimal wound healing environment and preventing/ minimizing adverse side effects. -Skilled education on rationale for dressing choice for reinforcement and improved compliance at home. -Skilled judgement and knowledge for optimization of wound care and skin integrity. -Skilled gentle cleansing and mechanical debridement to remove loose non-viable tissue, reduce bio-burden and promote improved global skin integrity -Dressing management/application: Vaseline applied to the global intact skin of the RIGHT LE. Zinc oxide to the elif-wound tissue of the wounds. Scant triple antibiotic ointment to the wound beds + NS moistened ENDOFORM to all wounds + Acticoat + Compression dressing as below. Modalities: Noncontact Ultrasound MIST: 14 min total to the RIGHT LE wounds (7 min to the lateral wound and 7 min to the medial wound cluster) Skilled interventions: -Proper administration and selection of modality based on clinical presentation, deficits, and needs -Patient response monitored throughout treatment Compression Therapy (Multilayer Venous Wound Compression System) (23595): Skilled interventions: -Skilled knowledge of wound care and skilled application of knowledge for optimal wound healing environment and preventing/minimizing adverse side effects. -Skilled education on rationale for dressing choice for reinforcement and improved compliance at home. -Compression dressing Profore Lite (20-30mmHg) applied to Right LE with ABD pad shared between the wounds and positioned between the layers of the compression dressing for added drainage support. -Toes are warm and pink before and post boot application. -S&S of intolerance reviewed. Reinforced with the patient that if she exhibits a change in color to the extremity, change in temperature, increased pain, or the dressing becomes wet, the patient was instructed to remove the dressing. If patient needs to remove the dressing, she was instructed to apply dressings at home per her usual. Post Treatment/Symptom(s): See above Adverse event? No Billing: Noncontact Ultrasound Mist (37717): no charge (bundled) Selective Sharp Debridement <20cm (79496): 1 unit Nonselective debridement (99563): no charge (bundled) Multi-Layer Venous Wound Compression System (70758): 1 unit (untimed) Session Start Time : 943 Session Stop Time : 1033 Total Time: 50 minutes Amanda Soto PT documented [facility] this encounterGal[facility]-10-[facility] History of Present illness Narrative* Amanda Soto, PT - 05/14/2024 10:28 AM EDT Episode Visit Count: 11 Medicare visits current year: 11 Therapist That Will Accept/Oversee The Plan Of Care: Liseth Alanis Start of Care Date: 01/24/24 Onset Date: 01/23/21 Plan of Care Certification Date: 02/29/24 (wound care) Next Certification Due Date: 05/08/24 Patient Identified by Name and Date of : Yes [facility] PHYSICAL THERAPY WOUND TREATMENT NOTE ASSESSMENT: patient presents with very antalgic gait. States her back and hip have been painful since Monday. States she almost fell twice getting to this department. Wants to go to the ER after this session. Worried about a compression fx with her hx of osteoporosis. The RIGHT LE venous wounds are doing well... reducing in size. The lateral wound still with adherent slough with underlying fibrotic quality tissue. The medial cluster with increased granular tissue and strengthening new epithelial tissue. Continued wound care is necessary. *post session, w/c obtained for the patient and she was transported to the [facility]. Nurses from the family medicine department assisted and transported patient to the ER per her request. PLAN FOR NEXT VISIT: continue with wound care, serial debridements and compression imperative. SUBJECTIVE: Patient states her LB/RIGHT hip have been very painful since Monday. She does not know what she did, but she is afraid of compression fx due to her hx of osteoporosis. She reports nearly falling x 2 getting to the [facility]. Is requesting a w/c transport to the ER after the session. Pain Tool: Verbal (Numeric Rating or Visual Analog Scale) Pain Level: 3 Pain Location: (R LE wounds. *noting sharp grabbing pains in her R LB/hip) Description: Sharp, Stabbing (R wounds: sore/achy, R hip/back: grabbing) Duration: Continuous Response To Pain Intervention: not rated on exit OBJECTIVE: Patient presents for follow-up wound care treatment with very antalgic gait with her cane. The compression dressing remains intact on the RIGHT LE and is in good position. WOUND STATUS: Wound 02/29/24 1600 Venous Ulcer Calf Distal;Right;Lateral (Active) Assessments 05/14/2024 10:00 AM Site Assessment Yellow;Red Elif-Wound Assessment Fragile;Hyperpigmented;Painful Wound Length (cm) 2 cm Wound Width (cm) 3.4 cm Wound Surface Area (cm^2) 6.8 cm^2 Wound Depth (cm) 0.1 cm Wound Volume (cm^3) 0.68 cm^3 Wound Healing % 87 Drainage Description Serosanguineous Drainage Amount Moderate Odor None Elif-Wound Treatment Vaseline;Zinc Oxide Treatments PT Debridement;Cleansed;Mechanical Debridement;PT Compression;PT Mist Therapy Dressing Changed Changed State of Healing Early/partial granulation Wound Bed Granulation (%) 70 % Wound Bed Slough (%) 30 % Non-staged Wound Description Partial thickness No associated orders. Wound 02/29/24 1600 Venous Ulcer Calf Distal;Right;Medial (Active) Assessments 05/14/2024 10:00 AM Site Assessment Yellow;Linares;Red Elif-Wound Assessment Hyperpigmented;Fragile;Scarred Shape cluster of 3 wound segments. proximal: 1 x 0.6, distal 1.9 x 1, more latalerally/posterior: 1.7 x 1.2 Wound Length (cm) 6 cm Wound Width (cm) 3.5 cm Wound Surface Area (cm^2) 21 cm^2 Wound Depth (cm) 0.1 cm Wound Volume (cm^3) 2.1 cm^3 Wound Healing % 68 Drainage Description Serosanguineous Drainage Amount Small Odor None Elif-Wound Treatment Vaseline;Zinc Oxide Treatments PT Debridement;Cleansed;Mechanical Debridement;PT Compression;PT Mist Therapy Dressing Changed Changed State of Healing Early/partial granulation Wound Bed Granulation (%) 20 % Wound Bed Epithelium (%) 70 % Wound Bed Slough (%) 10 % Non-staged Wound Description Partial thickness No associated orders. TREATMENT: Conservative Sharp Debridement <20cm (56501): 3 mm curette used to selectively remove slough andreduce fibrotic tissue on all of the wounds as able/tolerated. More assertive sharp debridement rendered on the lateral wound to reduce fibrotic quality tissue. Skilled interventions: -Knowledge of tissue anatomy and wound care -Skilled judgment was provided after wound assessment in selection of appropriate interventions. -Skilled hands-on technique for active wound care/sharp debridement with appropriate instruments todebride/remove devitalized and/or necrotic tissue to promote wound healing. -Assessment of pain tolerance throughout the session, use of Topical lidocaine prn -<20cm2 nonviable tissue removed Nonselective Debridement (51541): The dressing was removed. The RIGHT LE was cleansed with warm soapy water with Chlorhexidine. Mechanical debridement via towel and gauze swiping to remove loose slough on the wound beds, remove skin scales and accumulated drainage elif-wound, and reduce elif-wound ointment residue. Post care, wounds rinsed with NS and patted dry. Skilled interventions: -Skilled knowledge of wound care and skilled application of knowledge for optimal wound healing environment and preventing/ minimizing adverse side effects. -Skilled education on rationale for dressing choice for reinforcement and improved compliance at home. -Skilled judgement and knowledge for optimization of wound care and skin integrity. -Skilled gentle cleansing and mechanical debridement to remove loose non-viable tissue, reduce bio-burden and promote improved global skin integrity -Dressing management/application: Vaseline applied to the global intact skin of the RIGHT LE. Zinc oxide to the elif-wound tissue of the wounds. Scant triple antibiotic ointment to the wound beds + Promogran to all wounds + Acticoat + Compression dressing as below. Modalities: Noncontact Ultrasound MIST: 13 min total to the RIGHT LE wounds (7 min to the lateral wound and 6 min to the medial wound cluster) Skilled interventions: -Proper administration and selection of modality based on clinical presentation, deficits, and needs -Patient response monitored throughout treatment Compression Therapy (Multilayer Venous Wound Compression System) (17596): Skilled interventions: -Skilled knowledge of wound care and skilled application of knowledge for optimal wound healing environment and preventing/minimizing adverse side effects. -Skilled education on rationale for dressing choice for reinforcement and improved compliance at home. -Compression dressing Profore Lite (20-30mmHg) applied to Right LE with ABD pads x 2 between the layers for added drainage support. -Toes are warm and pink before and post boot application. -S&S of intolerance reviewed. Reinforced with the patient that if she exhibits a change in color to the extremity, change in temperature, increased pain, or the dressing becomes wet, the patient was instructed to remove the dressing. If patient needs to remove the dressing, she was instructed to apply dressings at home per her usual. Patient voices understanding with intent to comply. *post care, patient transported to the [facility] via w/c and nursing from the [address] [place] [address] transported the pt to the ER per pt request due to her back and hip pain. Post Treatment/Symptom(s): See above Adverse event? No Billing: Noncontact Ultrasound Mist (60559): no charge (bundled) Selective Sharp Debridement <20cm (40977): 1 unit Nonselective debridement (84085): no charge (bundled) Multi-Layer Venous Wound Compression System (81214): 1 unit (untimed) Session Start Time : 937 Session Stop Time : 1025 Total Time: 47 minutes Amanda Soto PT [facility] History of Present illness Narrative* Amanda Soto, PT - 05/10/2024 1:30 PM EDT Episode Visit Count: 10 Medicare visits current year: 10 Therapist That Will Accept/Oversee The Plan Of Care: Liseth Alanis Start of Care Date: 01/24/24 Onset Date: 01/23/21 Plan of Care Certification Date: 02/29/24 (wound care) Next Certification Due Date: 05/08/24 Patient Identified by Name and Date of : Yes [facility] REHABILITATION AND SPORTS THERAPY PHYSICAL THERAPY WOUND TREATMENT NOTE ASSESSMENT: patient's wounds are stable and are showing slow progress. Reducing size is noted. Continued wound care is warranted. Patient tolerates the session with pain which is minimized as able with topical Lidocaine. Good tolerance to the compression dressing. PLAN FOR NEXT VISIT: continue with active wound care SUBJECTIVE: Patient without overt complaints. The RIGHT lateral wound still a bit more sensitive than the medial wound cluster. Pain Tool: Verbal (Numeric Rating or Visual Analog Scale) Pain Level: 4 Pain Location: Leg-Right Description: Sore, Tenderness Duration: Continuous Intervention/Comfort measure: Medication, Relaxation, Reposition, Distractions, Education, Emotional Support/Reassurance, Exercise, Positioning, Other: See comment (compression and elevation) Response To Pain Intervention: not rated on exit OBJECTIVE: Patient presents for follow-up wound care treatment with mod-I gait with a cane. Scoliotic posture. Compression dressing remains intact. WOUND STATUS: Wound 02/29/24 1600 Venous Ulcer Calf Distal;Right;Lateral (Active) Assessments 05/10/2024 1:00 PM Site Assessment Yellow;Red Elif-Wound Assessment Fragile;Hyperpigmented;Painful Wound Length (cm) 2.5 cm Wound Width (cm) 3.8 cm Wound Surface Area (cm^2) 9.5 cm^2 Wound Depth (cm) 0.1 cm (along periphery, central wound slighlty raised) Wound Volume (cm^3) 0.95 cm^3 Wound Healing % 81 Drainage Description Serosanguineous Drainage Amount Moderate Odor None Elif-Wound Treatment Hydrocortisone Cream 2.5%;Vaseline;Zinc Oxide Treatments PT Debridement;Cleansed;Mechanical Debridement;PT Compression;PT Mist Therapy Dressing Changed Changed State of Healing Early/partial granulation Wound Bed Granulation (%) 70 % Wound Bed Slough (%) 30 % Non-staged Wound Description Partial thickness No associated orders. Wound 02/29/24 1600 Venous Ulcer Calf Distal;Right;Medial (Active) Assessments 05/10/2024 1:00 PM Site Assessment Yellow;Red;Arroyo;Linares Leif-Wound Assessment Hyperpigmented;Fragile;Scarred Shape cluster of wounds: anterior proximal: 1.1 x 0.7, Anterior distal: 1.8 x 1.1, lateral proximal0.5 x 0.4, lateral distal: 2 x 1.5 Wound Length (cm) 6.5 cm (oblique) Wound Width (cm) 3.8 cm Wound Surface Area (cm^2) 24.7 cm^2 Wound Depth (cm) 0.1 cm Wound Volume (cm^3) 2.47 cm^3 Wound Healing % 63 Drainage Description Serosanguineous Drainage Amount Small Odor None Elif-Wound Treatment Vaseline;Zinc Oxide Treatments PT Debridement;Cleansed;PT Mist Therapy;Mechanical Debridement;PT Compression Dressing Changed Changed State of Healing Early/partial granulation Wound Bed Granulation (%) 25 % Wound Bed Epithelium (%) 65 % Wound Bed Slough (%) 10 % Non-staged Wound Description Partial thickness No associated orders. TREATMENT: Conservative Sharp Debridement <20cm (93825): 3 mm curette used to selectively remove slough andreduce fibrotic tissue on all of the wounds as able/tolerated. More assertive sharp debridement rendered on the lateral wound to reduce fibrotic quality tissue. Skilled interventions: -Knowledge of tissue anatomy and wound care -Skilled judgment was provided after wound assessment in selection of appropriate interventions. -Skilled hands-on technique for active wound care/sharp debridement with appropriate instruments todebride/remove devitalized and/or necrotic tissue to promote wound healing. -Assessment of pain tolerance throughout the session, use of Topical lidocaine prn -<20cm2 nonviable tissue removed Nonselective Debridement (22413): The dressing was removed. The RIGHT LE was cleansed with warm soapy water with Chlorhexidine. Mechanical debridement via towel and gauze swiping to remove loose slough on the wound beds, remove skin scales and accumulated drainage elif-wound, and reduce elif-wound ointment residue. Post care, wounds rinsed with NS and patted dry. Skilled interventions: -Skilled knowledge of wound care and skilled application of knowledge for optimal wound healing environment and preventing/ minimizing adverse side effects. -Skilled education on rationale for dressing choice for reinforcement and improved compliance at home. -Skilled judgement and knowledge for optimization of wound care and skin integrity. -Skilled gentle cleansing and mechanical debridement to remove loose non-viable tissue, reduce bio-burden and promote improved global skin integrity -Dressing management/application: Vaseline applied to the global intact skin of the RIGHT LE. Zinc oxide to the elif-wound tissue of the wounds. Scant triple antibiotic ointment to the wound beds + Promogran to all wounds + Acticoat + Compression dressing as below. Modalities: Noncontact Ultrasound MIST: 16 min total to the RIGHT LE wounds (8 min to each wound) Skilled interventions: -Proper administration and selection of modality based on clinical presentation, deficits, and needs -Patient response monitored throughout treatment Compression Therapy (Multilayer Venous Wound Compression System) (68812): Skilled interventions: -Skilled knowledge of wound care and skilled application of knowledge for optimal wound healing environment and preventing/minimizing adverse side effects. -Skilled education on rationale for dressing choice for reinforcement and improved compliance at home. -Compression dressing Profore Lite (20-30mmHg) applied to Right LE with ABD pads x 2 between the layers for added drainage support. -Toes are warm and pink before and post boot application. -S&S of intolerance reviewed. Reinforced with the patient that if she exhibits a change in color to the extremity, change in temperature, increased pain, or the dressing becomes wet, the patient was instructed to remove the dressing. If patient needs to remove the dressing, she was instructed to apply dressings at home per her usual. Patient voices understanding with intent to comply. Post Treatment/Symptom(s): See above Adverse event? No Billing: Noncontact Ultrasound Mist (56073): no charge (bundled) Selective Sharp Debridement <20cm (44581): 1 unit Nonselective debridement (53345): no charge (bundled) Multi-Layer Venous Wound Compression System (76990): 1 unit (untimed) Session Start Time : 1240 Session Stop Time : 1328 Total Time: 48 minutes Amanda Soto PT documented in [facility]Gal[facility] Telephone encounter Note * Telephone Encounter - Lisa Shirley - 05/09/2024 3:13 PM EDT Spoke with patient to offer appointment with Amanda tomorrmateusz at 12 (noon) for wound therapy. Patientasked to call back because she was not home and needed to check her schedule first. Patient said she would call back within the next half hour [facility]09-05-[facility] Miscellaneous Notes* Telephone Encounter - Lisa Shirley - 05/09/2024 3:13 PM EDT Spoke with patient to offer appointment with Amanda tomorrmateusz at 12 (noon) for wound therapy. Patientasked to call back because she was not home and needed to check her schedule first. Patient said she would call back within the next half hour * Telephone Encounter - Lisa Shirley - 05/09/2024 2:02 PM EDT Patient is currently scheduled for Amanda's first available on 05/14/2024. * Telephone Encounter - Skylar Herrera - 05/08/2024 7:26 AM EDT Lvm for patient to call back and schedule appointment due to provider being out sick. May be scheduled for Amanda's first available for wound therapy. [facility] Telephone encounter Note * Telephone Encounter - Lisa Shirley - 05/09/2024 2:02 PM EDT Patient is currently scheduled for Amanda's first available on 05/14/2024. [facility] Telephone encounter Note* Telephone Encounter - Skylar Herrera - 05/08/2024 7:26 AM EDT Lvm for patient to call back and schedule appointment due to provider being out sick. May be scheduled for Amanda's first available for wound therapy. [facility]08-[facility] History of Present illness Narrative* Amanda Soto, PT - 04/30/2024 3:40 PM EDT Episode Visit Count: 9 Medicare visits current year: 9 WOUND Therapist That Will Accept/Oversee The Plan Of Care: Liseth Alanis Start of Care Date: 01/24/24 Onset Date: 01/23/21 Plan of Care Certification Date: 02/29/24 (wound care) Next Certification Due Date: 05/08/24 Patient Identified by Name and Date of : Yes [facility] REHABILITATION AND SPORTS THERAPY PHYSICAL THERAPY WOUND TREATMENT NOTE ASSESSMENT: patient's RIGHT lateral wound with increased epithelial migration on the wound periphery. The length of the wound is reducing. The posterior rim remains very sensitive. The medial clusterhas less drainage and increased epithelial bridging. Improved ability to debride the individual segments this date. Patient tolerates the session relatively well. Pain minimized with topical lidocaine. Continued wound care indicated. Patient motivated for the wound to close by the end of June, when she plans to relocate back to [place]. PLAN FOR NEXT VISIT: continue with acitve wound care, serial debridements and compression necessary SUBJECTIVE: Patient states her leg has been pretty good. Anxious to see wound improvement. Pain Tool: Verbal (Numeric Rating or Visual Analog Scale) Pain Level: 3 Pain Location: Leg-Right Description: Sore, Tenderness Duration: Continuous Intervention/Comfort measure: Medication, Reposition, Relaxation, Distractions, Emotional Support/Reassurance, Positioning, Other: See comment (compression and elevation) Response To Pain Intervention: 2-3/10, slight burning medially OBJECTIVE: Patient presents for follow-up wound care treatment with mod-I gait-- use of cane and antalgic pattern due to back and hip issues. WOUND STATUS: Wound 02/29/24 1600 Venous Ulcer Calf Distal;Right;Lateral (Active) Assessments 04/30/2024 3:00 PM Site Assessment Red;Yellow Elif-Wound Assessment Fragile;Hyperpigmented;Painful Wound Length (cm) 2.6 cm Wound Width (cm) 4 cm Wound Surface Area (cm^2) 10.4 cm^2 Wound Depth (cm) 0.2 cm (along the periphery. Central wound mildly raised. Wound periphery much more irregular due to epithelial ingrowth.) Wound Volume (cm^3) 2.08 cm^3 Wound Healing % 59 Drainage Description Serosanguineous Drainage Amount Moderate Odor None Elif-Wound Treatment Hydrocortisone Cream 2.5%;Vaseline;Zinc Oxide Treatments PT Debridement;Cleansed;Mechanical Debridement;PT Compression;PT Mist Therapy Dressing Changed Changed State of Healing Early/partial granulation Wound Bed Granulation (%) 70 % Wound Bed Epithelium (%) 5 % Wound Bed Slough (%) 25 % (slough and fibrotic tissue quality) Non-staged Wound Description Partial thickness No associated orders. Wound 02/29/24 1600 Venous Ulcer Calf Distal;Right;Medial (Active) Assessments 04/30/2024 3:00 PM Site Assessment Red;Yellow;Linares Elif-Wound Assessment Hyperpigmented;Fragile;Scarred Shape cluster of wounds: anterior segment 2 sections, posterior segment being broken into 2 sections due to epithelial bridging. Wound Length (cm) 6.6 cm (oblique) Wound Width (cm) 3.8 cm Wound Surface Area (cm^2) 25.08 cm^2 Wound Depth (cm) 0.1 cm Wound Volume (cm^3) 2.508 cm^3 Wound Healing % 62 Drainage Description Serosanguineous Drainage Amount Small Odor None Elif-Wound Treatment Vaseline;Zinc Oxide Treatments PT Debridement;Cleansed;Mechanical Debridement;PT Compression;PT Mist Therapy Dressing Changed Changed State of Healing Early/partial granulation Wound Bed Granulation (%) 20 % Wound Bed Epithelium (%) 60 % Wound Bed Slough (%) 20 % Non-staged Wound Description Partial thickness No associated orders. TREATMENT: Conservative Sharp Debridement <20cm (65679): 3 mm curette used to selectively remove slough andreduce fibrotic tissue on all of the wounds as able/tolerated. Skilled interventions: -Knowledge of tissue anatomy and wound care -Skilled judgment was provided after wound assessment in selection of appropriate interventions. -Skilled hands-on technique for active wound care/sharp debridement with appropriate instruments todebride/remove devitalized and/or necrotic tissue to promote wound healing. -Assessment of pain tolerance throughout the session, use of Topical lidocaine prn -<20cm2 nonviable tissue removed Nonselective Debridement (39469): The dressing was removed. The RIGHT LE was cleansed with warm soapy water with Chlorhexidine. Mechanical debridement via towel and gauze swiping to remove loose slough on the wound beds, remove skin scales and accumulated drainage elif-wound, and reduce elif-wound ointment residue. Post care, wounds rinsed with NS and patted dry. Skilled interventions: -Skilled knowledge of wound care and skilled application of knowledge for optimal wound healing environment and preventing/ minimizing adverse side effects. -Skilled education on rationale for dressing choice for reinforcement and improved compliance at home. -Skilled judgement and knowledge for optimization of wound care and skin integrity. -Skilled gentle cleansing and mechanical debridement to remove loose non-viable tissue, reduce bio-burden and promote improved global skin integrity -Dressing management/application: Vaseline applied to the global intact skin of the RIGHT LE. Zinc oxide to the elif-wound tissue of the wounds. Scant triple antibiotic ointment to the wound beds + Promogran medially and NS moistened Endoform laterally + Acticoat + Compression dressing as below. Modalities: Noncontact Ultrasound MIST: 16 min total to the RIGHT LE wounds (8 min to each wound) Skilled interventions: -Proper administration and selection of modality based on clinical presentation, deficits, and needs -Patient response monitored throughout treatment Compression Therapy (Multilayer Venous Wound Compression System) (49183): Skilled interventions: -Skilled knowledge of wound care and skilled application of knowledge for optimal wound healing environment and preventing/minimizing adverse side effects. -Skilled education on rationale for dressing choice for reinforcement and improved compliance at home. -Compression dressing Profore Lite (20-30mmHg) applied to Right LE with ABD pads x 2 between the layers for added drainage support. -Toes are warm and pink before and post boot application. -S&S of intolerance reviewed. Reinforced with the patient that if she exhibits a change in color to the extremity, change in temperature, increased pain, or the dressing becomes wet, the patient was instructed to remove the dressing. If patient needs to remove the dressing, she was instructed to apply dressings at home per her usual. Patient voices understanding with intent to comply. Post Treatment/Symptom(s): See above Adverse event? No Billing: Noncontact Ultrasound Mist (40738): no charge (bundled) Selective Sharp Debridement <20cm (34771): 1 unit Nonselective debridement (01234): no charge (bundled) Multi-Layer Venous Wound Compression System (10615): 1 unit (untimed) Session Start Time : 1434 Session Stop Time : 1533 Total Time: 59 minutes Amanda Soto PT documented in this encounterGal[facility]08-27-[facility] NoteHNO ID: [id number] Author: LISETH ALANIS PT Service: ? Author Type: Physical Therapist Type: Progress Notes Filed: 04/30/2024 08:59 Note Text: Episode Visit Count: 12 Therapist That Will Accept/Oversee The Plan Of Care: Liseth Alanis Start of Care Date: 01/24/24 Onset Date: 01/23/21 Plan of Care Certification Date: 02/29/24 (wound care) Next Certification Due Date: 05/08/24 REHABILITATION AND SPORTS THERAPY PHYSICAL THERAPY DISCONTINUANCE OF CARE PLAN OF CARE UPDATE: Assessment: Mary Alice Ga is discontinued from Physical Therapy services due to goal achievement and maximal benefit.. Patient was seen for 12 visits from Start of Care Date: 01/24/24 to 04/30/2024 and treatment included: Therapeutic exercise, Neuromuscular re-education, Self-longterm management, and Gait training. Goals for Episode of Care: created on 01/24/24 through 02/28/24 Goals updated on 03/13/2024 and 05/08/24 Patient will report no falls. -- MET Improve score on Timed Up and Go Test to 14 or less seconds to reflect decreased fall risk. -- MET Improve score on 30 Second Chair Stand to x10 or more repetitions to reflect decreased fall risk. -- MET [place] in home exercise program including cardiovascular exercise. -- MET - plans to go to the [facility] where her DTR is a personal lines agent Complete 6 MWT x1545 ft or more with or without SC. -- PARTIALLY MET, 860' today with SC 6 MWT Patient Goals: amb without an AD from handicap spot to front door without LOB -- PARTIALLY MET SUBJECTIVE: She feels good today. Has not done much yet and therefore her back isn't feeling too bad. States that it is her last visit and she is satisfied with her progress. She will see wound care PT this afternoon.. Patient Goals: amb without an AD from handicap spot to front door without LOB Functional Limitations: walking in the community, walking in the house Pain: Pain Pain Level: 0 Pain Location: Back Post Treatment Pain Post Treatment Pain Level: No Change Post Treatment Pain Location: Back PROMIS Scales 04/30/2024 04/09/2024 04/01/2024 Higher is Better Phys Func - Score 43 (mild dysfunction) 36 (moderate dysfunction) Phys Func - Percentile 24 8 Self-Eff Symptom - Score 44 (Average) Self-Eff Symptom - Percentile 27 T-scores: mean of general population = 50. 5 points is clinically meaningfully difference Percentiles provide an indication of how the patient's score ranks in relation to the general population. Higher percentile rankings indicate better function/quality of life. 50th percentile is the average of the general population and indicates half of respondents had a worse score. OBJECTIVE MEASURES WITH LEVEL OF FUNCTION: Functional Performance Test Results Assistive Device: Cane 30 Second Chair Stand Test: 11 reps 6 Minute Walk Test (ft): 860 ft 6 Minute Walk Test Gait Speed (calculated): 0.73 m/s Timed Up and Go (sec): 14 sec TREATMENT: Therapeutic Exercise: 1: SciFit seat 13, level 2, 5 min, 1:1 throughout, subjective collected 2: 30 sec sit < >stand test Skilled Intervention: Patient was educated in proper exercise technique and purpose for exercises. Reviewed and educated patient on additions/changes for home exercise program as above (*). Provided written instruction for home exercise program to facilitate proper performance and compliance. Correct performance of therapeutic exercises was facilitated with verbal, visual, and tactile cuing. Patient education as noted. Neuromuscular Re-Education: 1: TUG test 2x with SC, 1x without AD Skilled Intervention: Skilled judgment used to assess appropriate program for balance and coordination activity. Education in proprioceptive/kinesthetic awareness during standing and dynamic activities. Ensured patient safety with use of SC. Reviewed and educated patient on additions/changes for home program as noted above with an (*). Patient education as noted. Gait Training: Distance (feet): 860 Gait Cues: trunk upright Assistive Device: SC Assist Level: verbal and tactile cues. supervision Skilled Intervention: Patient was provided supervision during pre-gait/gait training to prevent falls and insure safety. Skilled judgment used to assess selection, proper sizing, and proper use of assistive device. Provided written instruction for home program to facilitate proper performance and compliance. Correct performance of home program was facilitated with verbal, visual, and tactile cueing. Self-Correction Management: 1: discussed correct adjustment of SC 2: discussed continued completion of HEP and progressing with personal lines agent 3: discussed posture 4: provided HEP hand outs from previous visits per pt. request Skilled Intervention: Skilled judgment in the selection of proper modification for activity of daily living/home management based on clinical presentation, deficits, and needs. Provided written i (more content not included)...[facility] 04-30-2024 History of Present illness Narrative* Liseth Alanis, PT - 04/30/2024 8:25 AM EDT Images from the original note were not included. Episode Visit Count: 12 Therapist That Will Accept/Oversee The Plan Of Care: Liseth Alanis Start of Care Date: 01/24/24 Onset Date: 01/23/21 Plan of Care Certification Date: 02/29/24 (wound care) Next Certification Due Date: 05/08/24 REHABILITATION AND SPORTS THERAPY PHYSICAL THERAPY DISCONTINUANCE OF CARE PLAN OF CARE UPDATE: Assessment: Mary Alice Ga is discontinued from Physical Therapy services due to goal achievement and maximal benefit.. Patient was seen for 12 visits from Start of Care Date: 01/24/24 to 04/30/2024 and treatment included: Therapeutic exercise, Neuromuscular re-education, Self-longterm management, and Gait training. Goals for Episode of Care: created on 01/24/24 through 02/28/24 Goals updated on 03/13/2024 and 05/08/24 Patient will report no falls. -- MET Improve score on Timed Up and Go Test to 14 or less seconds to reflect decreased fall risk. -- MET Improve score on 30 Second Chair Stand to x10 or more repetitions to reflect decreased fall risk. -- MET [place] in home exercise program including cardiovascular exercise. -- MET - plans to go to the [facility] where her DTR is a personal lines agent Complete 6 MWT x1545 ft or more with or without SC. -- PARTIALLY MET, 860' today with SC 6 MWT Patient Goals: amb without an AD from handicap spot to front door without LOB -- PARTIALLY MET SUBJECTIVE: She feels good today. Has not done much yet and therefore her back isn't feeling too bad. States that it is her last visit and she is satisfied with her progress. She will see wound care PT this afternoon.. Patient Goals: amb without an AD from handicap spot to front door without LOB Functional Limitations: walking in the community, walking in the house Pain: Pain Pain Level: 0 Pain Location: Back Post Treatment Pain Post Treatment Pain Level: No Change Post Treatment Pain Location: Back PROMIS Scales 04/30/2024 04/09/2024 04/01/2024 Higher is Better Phys Func - Score 43 (mild dysfunction) 36 (moderate dysfunction) Phys Func - Percentile 24 8 Self-Eff Symptom - Score 44 (Average) Self-Eff Symptom - Percentile 27 T-scores: mean of general population = 50. 5 points is clinically meaningfully difference Percentiles provide an indication of how the patient's score ranks in relation to the general population. Higher percentile rankings indicate better function/quality of life. 50th percentile is the average of the general population and indicates half of respondents had a worse score. OBJECTIVE MEASURES WITH LEVEL OF FUNCTION: Functional Performance Test Results Assistive Device: Cane 30 Second Chair Stand Test: 11 reps 6 Minute Walk Test (ft): 860 ft 6 Minute Walk Test Gait Speed (calculated): 0.73 m/s Timed Up and Go (sec): 14 sec TREATMENT: Therapeutic Exercise: 1: SciFit seat 13, level 2, 5 min, 1:1 throughout, subjective collected 2: 30 sec sit < >stand test Skilled Intervention: Patient was educated in proper exercise technique and purpose for exercises. Reviewed and educated patient on additions/changes for home exercise program as above (*). Provided written instruction for home exercise program to facilitate proper performance and compliance. Correct performance of therapeutic exercises was facilitated with verbal, visual, and tactile cuing. Patient education as noted. Neuromuscular Re-Education: 1: TUG test 2x with SC, 1x without AD Skilled Intervention: Skilled judgment used to assess appropriate program for balance and coordination activity. Education in proprioceptive/kinesthetic awareness during standing and dynamic activities. Ensured patient safety with use of SC. Reviewed and educated patient on additions/changes for home program as noted above with an (*). Patient education as noted. Gait Training: Distance (feet): 860 Gait Cues: trunk upright Assistive Device: SC Assist Level: verbal and tactile cues. supervision Skilled Intervention: Patient was provided supervision during pre-gait/gait training to prevent falls and insure safety. Skilled judgment used to assess selection, proper sizing, and proper use of assistive device. Provided written instruction for home program to facilitate proper performance and compliance. Correct performance of home program was facilitated with verbal, visual, and tactile cueing. Self-Correction Management: 1: discussed correct adjustment of SC 2: discussed continued completion of HEP and progressing with personal lines agent 3: discussed posture 4: provided HEP hand outs from previous visits per pt. request Skilled Intervention: Skilled judgment in the selection of proper modification for activity of daily living/home management based on clinical presentation, deficits, and needs. Provided written instruction for activities of daily living techniques to facilitate proper performance and compliance. Reviewed patient specific diagnosis in relation to activities of daily living/home management. Activity progression based on professional judgement. Reviewed and educated patient on additions/changes for home program as noted above with an (*). Provided written instruction for home program to facilitate proper performance and compliance. Correct performance of home program was facilitated with verbal, visual, and tactile cueing. Billing Therapeutic Exercise Treatment Minutes: 8 Neuromuscular Re-Education Treatment Minutes: 15 Self-Care/Home Management Treatment Minutes: 11 Gait Training Treatment Minutes: 6 Skilled Treatment Time Minutes (timed and untimed codes): 40 Total Session Time (minutes): 40 Session Start Time : 814 Session Stop Time : 854 Liseth Alanis [facility] History of Present illness Narrative* Amanda Soto PT - 04/24/2024 10:45 AM EDT Images from the original note were not included. Episode Visit Count: 8 Medicare visits current year: 8 Therapist That Will Accept/Oversee The Plan Of Care: Amanda Soto Start of Care Date: 01/24/24 Onset Date: 01/23/21 Plan of Care Certification Date: 02/29/24 (wound care) Next Certification Due Date: 05/29/24 (wound care) Patient Identified by Name and Date of : Yes [facility] REHABILITATION AND SPORTS THERAPY PHYSICAL THERAPY WOUND TREATMENT AND PROGRESS REPORT PLAN OF CARE UPDATE: Patient's RIGHT LE wounds are improving. Less hypergranular tissue on the lateral wound with good epithelial migration emerging on the wound perimeter, making the wound more irregular in shape. The medial wound cluster is improving with resolution of some sections and breaking the wound into smaller pieces due to epithelial bridging. The lateral wound remains tender, especially to the most posterior rim. Patient tolerates the compression dressing relatively well. Continued wound care is warranted as progress is being made. Functional Gains: increased wound healing as evidenced by reducing wound size, decreased nonviable tissue, and increased viable tissue Goals for Episode of Care Updated: 04/24/2024 to be achieved by 08/27/24 (WOUND CARE) Debride 50% of non-viable tissue from wounds on the RIGHT LE: MET Eliminate all nonviable tissue from wounds on the RIGHT LE: not met Decrease overall wound surface area (length x width) by 50% for wounds on the RIGHT LE: not met butprogress has been made Achieve full closure the anterior satellite wound: MET Achieve full closure of the wound of the Medial RIGHT LE: Not met Achieve full closure of the wound of the Lateral RIGHT LE : Not met Eliminate wound drainage: not met Eliminate pain: not met Patient voices understanding of assisted edema management via compression garments, leg elevation,and exercise.:addressed but reinforcement to continue with progressive wound healing. PLAN: Follow up for one visit(s) per week for 16 weeks for Selective debridement <20cm, Selective debridement >20cm, Nonselective debridement, Noncontact Ultrasound Mist, Compression Therapy (dressing), Patient/ Caregiver Education, and Self Care/ Home Management SUBJECTIVE: Patient arrives late due to road closures. States her leg has been ok. dye tub tender laterally. Patient rating of condition: better Pain Tool: Verbal (Numeric Rating or Visual Analog Scale) Pain Level: 4 Pain Location: Leg-Right Description: Sore, Tenderness Duration: Continuous Intervention/Comfort measure: Medication, Reposition, Distractions, Emotional Support/Reassurance, Positioning, Other: See comment (compression and elevation) Response To Pain Intervention: 1-10/14 on exit, most pain is laterally PROMIS Scales 03/13/2024 04/01/2024 04/09/2024 Higher is Better Phys Func - Score 36 (moderate dysfunction) Phys Func - Percentile 8 Self-Eff Symptom - Score 35 (Low) 44 (Average) Self-Eff Symptom - Percentile 7 27 T-scores: mean of general population = 50. 5 points is clinically meaningfully difference Percentiles provide an indication of how the patient's score ranks in relation to the general population. Higher percentile rankings indicate better function/quality of life. 50th percentile is the average of the general population and indicates half of respondents had a worse score. T-scores: mean of general population = 50. 5 points is clinically meaningfully difference Percentiles provide an indication of how the patient's score ranks in relation to the general population. Higher percentile rankings indicate better function/quality of life. 50th percentile is the average of the general population and indicates half of respondents had a worse score. OBJECTIVE MEASURES WITH LEVEL OF FUNCTION: Patient presents for follow-up wound care treatment with the compression dressing intact on the RIGHT LE. Gait is mod-I with a cane and labored due to back and hip issues. WOUND STATUS: Wound 02/29/24 1600 Venous Ulcer Calf Distal;Right;Lateral (Active) Assessments 04/24/2024 10:30 AM Site Assessment Red;Yellow;Sloughing;Granulation Elif-Wound Assessment Fragile;Hyperpigmented;Painful Wound Length (cm) 3.2 cm Wound Width (cm) 4 cm Wound Surface Area (cm^2) 12.8 cm^2 Wound Depth (cm) 0.2 cm (wound perimeter. Raised hypergranular center--less raised this date.) Wound Volume (cm^3) 2.56 cm^3 Wound Healing % 50 Drainage Description Serosanguineous Drainage Amount Moderate Odor None Elif-Wound Treatment Hydrocortisone Cream 2.5%;Vaseline;Zinc Oxide Treatments PT Debridement;Cleansed;Mechanical Debridement;PT Compression;PT Mist Therapy Dressing Changed Changed State of Healing Early/partial granulation Wound Bed Granulation (%) 70 % Wound Bed Epithelium (%) 5 % Wound Bed Slough (%) 25 % (slough and fibrotic tissue sections) Non-staged Wound Description Partial thickness No associated orders. Wound 02/29/24 1600 Venous Ulcer Calf Distal;Right;Medial (Active) Assessments 04/24/2024 10:30 AM Site Assessment Red;Yellow;[place];Sloughing;Fibrinous;Granulation Elif-Wound Assessment Hyperpigmented;Fragile;Scarred Shape cluster of wounds. Anterior segment now only 2 wounds. more posterior segment starting to break into 2 sections Wound Length (cm) 5.3 cm Wound Width (cm) 3.6 cm Wound Surface Area (cm^2) 19.08 cm^2 Wound Depth (cm) 0.1 cm Wound Volume (cm^3) 1.908 cm^3 Wound Healing % 71 Drainage Description Serosanguineous Drainage Amount Moderate Odor None Elif-Wound Treatment Zinc Oxide;Vaseline Treatments PT Debridement;Cleansed;Mechanical Debridement;PT Compression;PT Mist Therapy Dressing Changed Changed State of Healing Early/partial granulation Wound Bed Granulation (%) 35 % Wound Bed Epithelium (%) 55 % Wound Bed Slough (%) 10 % Non-staged Wound Description Partial thickness No associated orders. TREATMENT: Conservative Sharp Debridement <20cm (94326): 3 mm curette used to selectively remove slough andreduce fibrotic tissue on all of the wounds as able/tolerated. Chemical debridement with silver nitrate to further reduce the hypergranular tissue laterally. Skilled interventions: -Knowledge of tissue anatomy and wound care -Skilled judgment was provided after wound assessment in selection of appropriate interventions. -Skilled hands-on technique for active wound care/sharp debridement with appropriate instruments todebride/remove devitalized and/or necrotic tissue to promote wound healing. -Assessment of pain tolerance throughout the session, use of Topical lidocaine prn -<20cm2 nonviable tissue removed Nonselective Debridement (71674): The dressing was removed. The RIGHT LE was cleansed with warm soapy water with Chlorhexidine. Mechanical debridement via towel and gauze swiping to remove loose slough on the wound beds, remove skin scales and accumulated drainage elif-wound, and reduce elif-wound ointment residue. Post care, wounds rinsed with NS and patted dry. Skilled interventions: -Skilled knowledge of wound care and skilled application of knowledge for optimal wound healing environment and preventing/ minimizing adverse side effects. -Skilled education on rationale for dressing choice for reinforcement and improved compliance at home. -Skilled judgement and knowledge for optimization of wound care and skin integrity. -Skilled gentle cleansing and mechanical debridement to remove loose non-viable tissue, reduce bio-burden and promote improved global skin integrity -Dressing management/application: Vaseline applied to the global intact skin of the RIGHT LE. Zinc oxide to the elif-wound tissue of the wounds. Scant triple antibiotic ointment to the wound beds + Promogran medially and NS moistened Endoform laterally + Acticoat + Compression dressing as below. Modalities: Noncontact Ultrasound MIST: 16 min total to the RIGHT LE wounds (8 min to each wound) Skilled interventions: -Proper administration and selection of modality based on clinical presentation, deficits, and needs -Patient response monitored throughout treatment Compression Therapy (Multilayer Venous Wound Compression System) (13583): Skilled interventions: -Skilled knowledge of wound care and skilled application of knowledge for optimal wound healing environment and preventing/minimizing adverse side effects. -Skilled education on rationale for dressing choice for reinforcement and improved compliance at home. -Compression dressing Profore Lite (20-30mmHg) applied to Right LE with ABD pads x 2 between the layers for added drainage support. -Toes are warm and pink before and post boot application. -S&S of intolerance reviewed. Reinforced with the patient that if she exhibits a change in color to the extremity, change in temperature, increased pain, or the dressing becomes wet, the patient was instructed to remove the dressing. If patient needs to remove the dressing, she was instructed to apply dressings at home per her usual. Patient voices understanding with intent to comply. Post Treatment/Symptom(s): See above Adverse event? No Billing: KX modifier applied - Therapist attests that services rendered are medically necessary. Noncontact Ultrasound Mist (72964): no charge (bundled) Selective Sharp Debridement <20cm (57129): 1 unit Nonselective debridement (35669): no charge (bundled) Multi-Layer Venous Wound Compression System (04011): 1 unit (untimed) Session Start Time : 951 Session Stop Time : 1050 Total Time: 58 minutes Amanda Soto PT [facility] NoteHNO ID: [id number] Author: LISETH ALANIS PT Service: ? Author Type: Physical Therapist Type: Progress Notes Filed: 04/23/2024 14:55 Note Text: Episode Visit Count: 11 Therapist That Will Accept/Oversee The Plan Of Care: Liseth Alanis Start of Care Date: 01/24/24 Onset Date: 01/23/21 Plan of Care Certification Date: 03/13/24 Next Certification Due Date: 05/08/24 REHABILITATION AND SPORTS THERAPY PHYSICAL THERAPY TREATMENT NOTE ASSESSMENT: Mary Alice Ga tolerated the session with decreased symptoms. She demonstrated improvements in trunk extension and reduced R trunk list during L lateral shift at wall. Pain increased despite improved posture. Pt. Reports relief with repeated trunk extension. Required max cues for set up and correct technique. The patient will continue to benefit from ongoing skilled physical therapy to progress toward set goals. PLAN FOR NEXT VISIT: Continue lumbar extension repeated seated or standing and determine effectiveness for posture and symptom reduction SUBJECTIVE: Pt. 10 min late for visit. She had apt with vasc this AM. Lost her cane at the hospital when her went to the ED for a fall. Pain: Pain Pain Level: 4 Pain Location: Back Pain Level 2: 2 Pain Location 2: Hip - Left, Hip - Right Post Treatment Pain Post Treatment Pain Level: 3 Post Treatment Pain Location: Back OBJECTIVE MEASURES WITH LEVEL OF FUNCTION: TREATMENT: Therapeutic Exercise: 1: SciFit seat 13, level 2, 5 min, 1:1 throughout, subjective collected 2: L lateral trunk shift at wall 4x10 3: seated trunk ext 3x10 4: seated trunk flexion 2x10 Skilled Intervention: Patient was educated in proper exercise technique and purpose for exercises. Reviewed and educated patient on additions/changes for home exercise program as above (*). Skilled judgment was used in selection of appropriate interventions. Provided written instruction for home exercise program to facilitate proper performance and compliance. Correct performance of therapeutic exercises was facilitated with verbal, visual, and tactile cuing. Educated patient on rationale for performing exercises in regards to decreasing fatigue , including balance, increase ease of ADL, and ROM and function . Patient education as noted. Neuromuscular Re-Education: 1: posture perfect against wall 1 min 2 sets Skilled Intervention: Skilled judgment used to assess appropriate program for balance and coordination activity. Education in proprioceptive/kinesthetic awareness during standing and dynamic activities. Reviewed and educated patient on additions/changes for home program as noted above with an (*). Patient education as noted. Gait Training: Distance (feet): 50' 2x Gait Cues: trunk upright and increased WB LLE Assistive Device: SC Assist Level: verbal cues and supervision Skilled Intervention: Patient was provided supervision during pre-gait/gait training to prevent falls and insure safety. Correct performance of home program was facilitated with verbal, visual, and tactile cueing. Billing Therapeutic Exercise Treatment Minutes: 30 Neuromuscular Re-Education Treatment Minutes: 3 Gait Training Treatment Minutes: 5 Skilled Treatment Time Minutes (timed and untimed codes): 38 Total Session Time (minutes): 38 Session Start Time : 1420 Session Stop Time : 1458 Liseth Alanis, [facility]08-20-2024 History of Present illness Narrative* Liseth Alanis, PT - 04/23/2024 2:29 PM EDT Episode Visit Count: 11 Therapist That Will Accept/Oversee The Plan Of Care: Liseth Alanis Start of Care Date: 01/24/24 Onset Date: 01/23/21 Plan of Care Certification Date: 03/13/24 Next Certification Due Date: 05/08/24 REHABILITATION AND SPORTS THERAPY PHYSICAL THERAPY TREATMENT NOTE ASSESSMENT: Mary Alice Ga tolerated the session with decreased symptoms. She demonstrated improvements in trunk extension and reduced R trunk list during L lateral shift at wall. Pain increaseddespite improved posture. Pt. Reports relief with repeated trunk extension. Required max cues for set up and correct technique. The patient will continue to benefit from ongoing skilled physical therapy to progress toward set goals. PLAN FOR NEXT VISIT: Continue lumbar extension repeated seated or standing and determine effectiveness for posture and symptom reduction SUBJECTIVE: Pt. 10 min late for visit. She had apt with vasc this AM. Lost her cane at the hospitalwhen her went to the ED for a fall. Pain: Pain Pain Level: 4 Pain Location: Back Pain Level 2: 2 Pain Location 2: Hip - Left, Hip - Right Post Treatment Pain Post Treatment Pain Level: 3 Post Treatment Pain Location: Back OBJECTIVE MEASURES WITH LEVEL OF FUNCTION: TREATMENT: Therapeutic Exercise: 1: SciFit seat 13, level 2, 5 min, 1:1 throughout, subjective collected 2: L lateral trunk shift at wall 4x10 3: seated trunk ext 3x10 4: seated trunk flexion 2x10 Skilled Intervention: Patient was educated in proper exercise technique and purpose for exercises. Reviewed and educated patient on additions/changes for home exercise program as above (*). Skilled judgment was used in selection of appropriate interventions. Provided written instruction for home exercise program to facilitate proper performance and compliance. Correct performance of therapeutic exercises was facilitated with verbal, visual, and tactile cuing. Educated patient on rationale for performing exercises in regards to decreasing fatigue , includingbalance, increase ease of ADL, and ROM and function . Patient education as noted. Neuromuscular Re-Education: 1: posture perfect against wall 1 min 2 sets Skilled Intervention: Skilled judgment used to assess appropriate program for balance and coordination activity. Education in proprioceptive/kinesthetic awareness during standing and dynamic activities. Reviewed and educated patient on additions/changes for home program as noted above with an (*). Patient education as noted. Gait Training: Distance (feet): 50' 2x Gait Cues: trunk upright and increased WB LLE Assistive Device: SC Assist Level: verbal cues and supervision Skilled Intervention: Patient was provided supervision during pre-gait/gait training to prevent falls and insure safety. Correct performance of home program was facilitated with verbal, visual, and tactile cueing. Billing Therapeutic Exercise Treatment Minutes: 30 Neuromuscular Re-Education Treatment Minutes: 3 Gait Training Treatment Minutes: 5 Skilled Treatment Time Minutes (timed and untimed codes): 38 Total Session Time (minutes): 38 Session Start Time : 1420 Session Stop Time : 1458 Liseth Alanis PT documented [facility] this [facility]24 NoteHNO ID: [id number] Author: GT YIN, DO Service: ? Author Type: Physician Type: Progress Notes Filed: 05/23/2024 16:21 Note Text: [facility] [place] DEPARTMENT OF VASCULAR SURGERY OUTPATIENT VISIT DATE April 23, 2024 OUTPATIENT VISIT TYPE ESTABLISHED SERVICE DATE: 04/23/2024 SERVICE TIME: 11:05 AM PRIMARY CARE PHYSICIAN: Khanh Rodriguez MD HISTORY OF PRESENT ILLNESS: Ms. Ga is a 73 year old female who presents today for a vascular surgery follow-up visit for venous insufficiency. She has been seeing Amanda Soto and has noticed progress in wound healing. She is here to follow up after vascular lab PAST MEDICAL HISTORY No date: Arthritis No date: Cirrhosis (HCC) No date: Cirrhosis (HCC) No date: Edema No date: Flexural atopic dermatitis No date: Inflamed seborrheic keratosis No date: Liver disease No date: Multiple nevi 01/24/08: PMH - PAST MEDICAL HISTORY OF Comment: pancreatitis No date: PMH - PAST MEDICAL HISTORY OF Comment: htn No date: PMH - PAST MEDICAL HISTORY OF Comment: hx varicose veins 05/17/08: PMH - PAST MEDICAL HISTORY OF Comment: pulmonary embolus- postop left TKA No date: Seborrheic keratoses No date: Solar lentiginosis PAST SURGICAL HISTORY 10/2020: PARTIAL HIP REPLACEMENT; Left 09/04/1991: PAST SURGICAL HISTORY OF Comment: JULIETA/BSO for fibroids No date: PAST SURGICAL HISTORY OF Comment: tonsillectomy 05/14/2008: PAST SURGICAL HISTORY OF Comment: Left TKA 08/29/2011: PAST SURGICAL HISTORY OF Comment: R TKA SOCIAL HISTORY Social History Tobacco Use Smoking status: Never Smokeless tobacco: Never Substance Use Topics Alcohol use: Yes Comment: 3 glasses of wine daily-quit 05/2016 Drug use: No MEDICATIONS: LASIX 40 mg tablet Take 40 mg by mouth two times a day. acetaminophen (TYLENOL) 325 mg cap Take by mouth. alendronate (FOSAMAX) 70 mg tablet Take 1 tablet by mouth one time a week. anastrozole (ARIMIDEX) [address] (PROTONIX) 40 mg tablet Take 1 tablet by mouth once daily. nadolol (CORGARD) 20 mg tablet TAKE ONE TABLET BY MOUTH EVERY DAY potassium chloride ER (K-DUR, KLOR-CON) 20 mEq tablet Take 20 mEq by mouth two times a day. diclofenac sodium (VOLTAREN) 1 % topical gel Apply 2 g to affected area four times daily as needed. spironolactone (ALDACTONE) 50 mg tablet Take 1 tablet by mouth twice daily. furosemide (LASIX) 20 mg tablet Take 2 tablets by mouth twice daily. MILK THISTLE ORAL Take by mouth once daily. (Patient not taking: Reported on 02/27/2024) ibuprofen (MOTRIN) 200 mg tablet Take 400 mg by mouth three times daily. (Patient not taking: Reported on 02/27/2024) ALLERGIES: ALLERGIES Allergen Reactions Clarithromycin (Bul* Other: See Comments pancrititis Steroids [Betametha* Intolerance pancritis PHYSICAL EXAM: BP 126/68 (BP Site: Right Arm, BP Position: Sitting, BP Cuff Size: Regular Adult) Pulse (!) 59 SpO2 100% Gen- no distress Ext- dressings clean and dry Diagnostic tests reviewed for today's visit: Most recent labs Most recent imaging Venous Reflux RIGHT SIDE - DEEP VEINS Negative for acute deep vein thrombosis in vessels visualized. RIGHT SIDE - SUPERFICIAL VEINS Positive for valvular incompetency in the great saphenous vein. Visualized from the junction to proximal thigh. Approximate lenth 13 cm. -History of ablation. Varicosites noted anterior mid to distal thigh and lateral knee. Two perforators that appear competent noted proximal/mid calf and one at mid calf. Varicosities/branches noted in the calf. Negative for valvular incompetency in the small saphenous vein. Chronic post-thrombotic change in the small saphenous vein at the proximal calf. LEFT SIDE - DEEP VEINS Negative for acute deep vein thrombosis in vessels visualized. LEFT SIDE - SUPERFICIAL VEINS Negative for valvular incompetency in the great saphenous vein. -Possible history of ablation/phlebectomy. Vein not visualized from mid thigh through proximal calf. Varicosities noted throughout. Acute superficial thrombophlebitis in the varicosity off the great saphenous vein at the knee crease. An incompetent set up mold technician is noted at mid calf and another at distal calf. Negative for valvular incompetency in the anterior accessory great saphenous vein. Varicosities arise proximal thigh and course along anterior thigh. Negative for valvular incompetency in the small saphenous vein. IMPRESSION: Ms. Ga is a 73 year old female with venous insufficiency, venous ulceration, venous reflux . PLAN and RECOMMENDATIONS: Doing well. Wounds progressing Recommend follow up in January She may benefit from left leg phlebectomy and possible proximal right leg EVLT with phlebectomy Continue compression as tolerated SIGNATURE: Gt Yin DO PATIENT NAME: Mary Alice Ga DATE: April 23, 2024 TIME: 11:05 [facility]08-20-2024 History of Present illness Narrative* Gt Yin DO - 04/23/2024 11:04 AM EDT Images from the original note were not included. [facility] V[facility] Thor[facility] [place] DEPARTMENT OF VASCULAR SURGERY OUTPATIENT VISIT DATE April 23, 2024 OUTPATIENT VISIT TYPE ESTABLISHED SERVICE DATE: 04/23/2024 SERVICE TIME: 11:05 AM PRIMARY CARE PHYSICIAN: Khanh Rodriguez MD HISTORY OF PRESENT ILLNESS: Ms. Ga is a 73 year old female who presents today for a vascularsurgery follow-up visit for venous insufficiency. She has been seeing Amanda Soto and has noticed progress in wound healing. She is here to follow up after vascular lab PAST MEDICAL HISTORY No date: Arthritis No date: Cirrhosis (HCC) No date: Cirrhosis (HCC) No date: Edema No date: Flexural atopic dermatitis No date: Inflamed seborrheic keratosis No date: Liver disease No date: Multiple nevi 01/24/08: PMH - PAST MEDICAL HISTORY OF Comment: pancreatitis No date: PMH - PAST MEDICAL HISTORY OF Comment: htn No date: PMH - PAST MEDICAL HISTORY OF Comment: hx varicose veins 05/17/08: PMH - PAST MEDICAL HISTORY OF Comment: pulmonary embolus- postop left TKA No date: Seborrheic keratoses No date: Solar lentiginosis PAST SURGICAL HISTORY 10/2020: PARTIAL HIP REPLACEMENT; Left 09/04/1991: PAST SURGICAL HISTORY OF Comment: JULIETA/BSO for fibroids No date: PAST SURGICAL HISTORY OF Comment: tonsillectomy 05/14/2008: PAST SURGICAL HISTORY OF Comment: Left TKA 08/29/2011: PAST SURGICAL HISTORY OF Comment: R TKA SOCIAL HISTORY Social History Tobacco Use Smoking status: Never Smokeless tobacco: Never Substance Use Topics Alcohol use: Yes Comment: 3 glasses of wine daily-quit 05/2016 Drug use: No MEDICATIONS: LASIX 40 mg tablet Take 40 mg by mouth two times a day. acetaminophen (TYLENOL) 325 mg cap Take by mouth. alendronate (FOSAMAX) 70 mg tablet Take 1 tablet by mouth one time a week. anastrozole (ARIMIDEX) [address] (PROTONIX) 40 mg tablet Take 1 tablet by mouth once daily. nadolol (CORGARD) 20 mg tablet TAKE ONE TABLET BY MOUTH EVERY DAY potassium chloride ER (K-DUR, KLOR-CON) 20 mEq tablet Take 20 mEq by mouth two times a day. diclofenac sodium (VOLTAREN) 1 % topical gel Apply 2 g to affected area four times daily as needed. spironolactone (ALDACTONE) 50 mg tablet Take 1 tablet by mouth twice daily. furosemide (LASIX) 20 mg tablet Take 2 tablets by mouth twice daily. MILK THISTLE ORAL Take by mouth once daily. (Patient not taking: Reported on 02/27/2024) ibuprofen (MOTRIN) 200 mg tablet Take 400 mg by mouth three times daily. (Patient not taking: Reported on 02/27/2024) ALLERGIES: ALLERGIES Allergen Reactions Clarithromycin (Bul* Other: See Comments pancrititis Steroids [Betametha* Intolerance pancritis PHYSICAL EXAM: BP 126/68 (BP Site: Right Arm, BP Position: Sitting, BP Cuff Size: Regular Adult) Pulse (!) 59 SpO2 100% Gen- no distress Ext- dressings clean and dry Diagnostic tests reviewed for today's visit: Most recent labs Most recent imaging Venous Reflux RIGHT SIDE - DEEP VEINS Negative for acute deep vein thrombosis in vessels visualized. RIGHT SIDE - SUPERFICIAL VEINS Positive for valvular incompetency in the great saphenous vein. Visualized from the junction to proximal thigh. Approximate lenth 13 cm. -History of ablation. Varicosites noted anterior mid to distal thigh and lateral knee. Two perforators that appear competent noted proximal/mid calf and one at mid calf. Varicosities/branches noted in the calf. Negative for valvular incompetency in the small saphenous vein. Chronic post-thrombotic change in the small saphenous vein at the proximal calf. LEFT SIDE - DEEP VEINS Negative for acute deep vein thrombosis in vessels visualized. LEFT SIDE - SUPERFICIAL VEINS Negative for valvular incompetency in the great saphenous vein. -Possible history of ablation/phlebectomy. Vein not visualized from mid thigh through proximal calf. Varicosities noted throughout. Acute superficial thrombophlebitis in the varicosity off the great saphenous vein at the knee crease. An incompetent set up mold technician is noted at mid calf and another at distal calf. Negative for valvular incompetency in the anterior accessory great saphenous vein. Varicosities arise proximal thigh and course along anterior thigh. Negative for valvular incompetency in the small saphenous vein. IMPRESSION: Ms. Ga is a 73 year old female with venous insufficiency, venous ulceration, venous reflux . PLAN and RECOMMENDATIONS: Doing well. Wounds progressing Recommend follow up in January She may benefit from left leg phlebectomy and possible proximal right leg EVLT with phlebectomy Continue compression as tolerated SIGNATURE: Gt Yin DO PATIENT NAME: Mary Alice Ga DATE: April 23, 2024 TIME: 11:05 AM [facility] History of Present illness Narrative* Amanda Soto, PT - 04/16/2024 3:45 PM EDT Episode Visit Count: 7 Medicare visits current year: 7 Therapist That Will Accept/Oversee The Plan Of Care: Liseth Alanis Start of Care Date: 01/24/24 Onset Date: 01/23/21 Plan of Care Certification Date: 03/13/24 Next Certification Due Date: 05/08/24 Patient Identified by Name and Date of : Yes [facility] REHABILITATION AND SPORTS THERAPY PHYSICAL THERAPY WOUND TREATMENT NOTE ASSESSMENT: patients wounds are stable. The medial cluster with more adherent necrotic tissue this date but satisfactory debridement rendered. The lateral wound with good new epithelial migration. Repeat application of silver nitrate to reduce the hypergranular tissue on the central wound bed. Patient continues to be painful laterally > medially. Continued wound care is necessary. Patient is compliant with the wear of the compression dressing. PLAN FOR NEXT VISIT: continue with active wound care, serial debridements and compression imperative SUBJECTIVE: Patient states she had a lot of pain after last session, but recently the leg has not felt too bad.Still gets intermittent random spontaneous shooting pains. Pain Tool: Verbal (Numeric Rating or Visual Analog Scale) Pain Level: 4 Pain Location: Leg-Right Description: Sore, Tenderness Duration: Continuous Intervention/Comfort measure: Medication, Reposition, Relaxation, Distractions, Emotional Support/Reassurance, Exercise, Positioning, Other: See comment (compression and elevation) Response To Pain Intervention: 10/14--tender OBJECTIVE: Patient presents for follow-up wound care treatment with the compression dressing still intact and in good position. No drainage strike- through noted. WOUND STATUS: Wound 02/29/24 1600 Venous Ulcer Calf Distal;Right;Lateral (Active) Assessments 04/16/2024 3:00 PM Site Assessment Red;Yellow;Sloughing;Granulation Elif-Wound Assessment Fragile;Hyperpigmented;Painful Wound Length (cm) 3.1 cm Wound Width (cm) 4.1 cm Wound Surface Area (cm^2) 12.71 cm^2 Wound Depth (cm) 0.2 cm (raised, hypergranular center) Wound Volume (cm^3) 2.542 cm^3 Wound Healing % 50 Drainage Description Serosanguineous Drainage Amount Moderate Odor None Elif-Wound Treatment Vaseline;Zinc Oxide Treatments PT Debridement;Cleansed;Mechanical Debridement;PT Compression;PT Mist Therapy Dressing Changed Changed State of Healing Early/partial granulation Wound Bed Granulation (%) 75 % Wound Bed Epithelium (%) 5 % Wound Bed Slough (%) 20 % Non-staged Wound Description Partial thickness No associated orders. Wound 02/29/24 1600 Venous Ulcer Calf Distal;Right;Medial (Active) Assessments 04/16/2024 3:00 PM Site Assessment Red;Yellow;Arroyo;Lina[place];Fibrinous;Sloughing Elif-Wound Assessment Hyperpigmented;Fragile;Scarred Shape cluster of wounds: anterior section 3 wounds verically: collectively 5.5 x 1.4, posterior wound: 4.1 x 1.8 Wound Length (cm) 5.5 cm Wound Width (cm) 3.7 cm Wound Surface Area (cm^2) 20.35 cm^2 Wound Depth (cm) 0.1 cm Wound Volume (cm^3) 2.035 cm^3 Wound Healing % 69 Drainage Description Serosanguineous;Purulent Drainage Amount Moderate Odor None Elif-Wound Treatment Vaseline;Zinc Oxide Treatments PT Debridement;Cleansed;Mechanical Debridement;PT Compression;PT Mist Therapy Dressing Changed Changed State of Healing Early/partial granulation Wound Bed Granulation (%) 30 % Wound Bed Epithelium (%) 50 % Wound Bed Slough (%) 20 % Non-staged Wound Description Partial thickness No associated orders. TREATMENT: Conservative Sharp Debridement <20cm (67762): 3 mm curette used to selectively remove slough andreduce fibrotic tissue on all of the wounds as able/tolerated. Chemical debridement with silver nitrate to reduce the hypergranular tissue laterally. Skilled interventions: -Knowledge of tissue anatomy and wound care -Skilled judgment was provided after wound assessment in selection of appropriate interventions. -Skilled hands-on technique for active wound care/sharp debridement with appropriate instruments todebride/remove devitalized and/or necrotic tissue to promote wound healing. -Assessment of pain tolerance throughout the session, use of Topical lidocaine prn -<20cm2 nonviable tissue removed Nonselective Debridement (79105): The dressing was removed. The RIGHT LE was cleansed with warm soapy water with Chlorhexidine. Mechanical debridement via towel and gauze swiping to remove loose slough on the wound beds, remove skin scales and accumulated drainage elif-wound, and reduce elif-wound ointment residue. Post care, wounds rinsed with NS and patted dry. Skilled interventions: -Skilled knowledge of wound care and skilled application of knowledge for optimal wound healing environment and preventing/ minimizing adverse side effects. -Skilled education on rationale for dressing choice for reinforcement and improved compliance at home. -Skilled judgement and knowledge for optimization of wound care and skin integrity. -Skilled gentle cleansing and mechanical debridement to remove loose non-viable tissue, reduce bio-burden and promote improved global skin integrity -Dressing management/application: Vaseline applied to the global intact skin of the RIGHT LE. Zinc oxide to the elif-wound tissue of the wounds. Scant triple antibiotic ointment to the wound beds + Promogran medially and NS moistened Endoform laterally + Acticoat + Compression dressing as below. Modalities: Noncontact Ultrasound MIST: 16 min total to the RIGHT LE wounds (8 min to each wound) Skilled interventions: -Proper administration and selection of modality based on clinical presentation, deficits, and needs -Patient response monitored throughout treatment Compression Therapy (Multilayer Venous Wound Compression System) (75286): Skilled interventions: -Skilled knowledge of wound care and skilled application of knowledge for optimal wound healing environment and preventing/minimizing adverse side effects. -Skilled education on rationale for dressing choice for reinforcement and improved compliance at home. -Compression dressing Profore Lite (20-30mmHg) applied to Right LE with ABD pads x 2 between the layers for added drainage support. -Toes are warm and pink before and post boot application. -S&S of intolerance reviewed. Reinforced with the patient that if she exhibits a change in color to the extremity, change in temperature, increased pain, or the dressing becomes wet, the patient was instructed to remove the dressing. If patient needs to remove the dressing, she was instructed to apply dressings at home per her usual. Patient voices understanding with intent to comply. Post Treatment/Symptom(s): See above Adverse event? No Billing: Noncontact Ultrasound Mist (71910): no charge (bundled) Selective Sharp Debridement <20cm (69924): 1 unit Nonselective debridement (97015): no charge (bundled) Multi-Layer Venous Wound Compression System (43757): 1 unit (untimed) Session Start Time : 1441 Session Stop Time : 1545 Total Time: 64 minutes Amanda Soto PT [facility] History of Present illness Narrative* Liseth Alanis, PT - 04/16/2024 11:01 AM EDT Program_ID:[id number] Access Code: [email or web address] URL: [email or web address] Date: 04-16-2024 Prepared By: Liseth Alanis Program Notes Exercises - Lateral Shift Correction at Wall - 2-3 x daily - 7 x weekly - 4 sets - 10 reps * Liseth Alanis PT - 04/16/2024 10:44 AM EDT Episode Visit Count: 10 Therapist That Will Accept/Oversee The Plan Of Care: Liseth Alanis Start of Care Date: 01/24/24 Onset Date: 01/23/21 Plan of Care Certification Date: 03/13/24 Next Certification Due Date: 05/08/24 REHABILITATION AND SPORTS THERAPY PHYSICAL THERAPY TREATMENT NOTE ASSESSMENT: Mary Alice Ga tolerated the session with fatigue and expected muscle soreness. She demonstrated difficulty with self correcting R lateral shift without use of mirror for visual cue or // bars for optimal BUE stability. Symptoms centralize from the leg with repeated side glides. The patient will continue to benefit from ongoing skilled physical therapy to progress toward set goals. PLAN FOR NEXT VISIT: continue L lumbar side glides as tolerated, consider seated paloff press to improve self correctionwith R lateral shift SUBJECTIVE: Pt. arrived 9 min past apt. start time. Her dog is unfortunately ill. Pt. says that shesaw ortho about her hip. She was shown xrays and informed that it is her spine that causes hip pain. Pt. denies hip pain today, complains of only low back pain. Pain: Pain Pain Level: 5 Pain Location: Back Pain Level 2: 0 Pain Location 2: Hip - Left, Hip - Right Post Treatment Pain Post Treatment Pain Level: 7 Post Treatment Pain Location: Back OBJECTIVE MEASURES WITH LEVEL OF FUNCTION: Repeated Test Movements - Lumbar Other Lumbar Repeated Test Movements: Yes Other Repeated Test Movements - Lumbar SGIS/L - Symptoms During: produces SGIS/L - Symptoms After: better, increase ROM TREATMENT: Therapeutic Exercise: 1: SciFit seat 13, level 2, 5 min, 1:1 throughout, subjective collected 2: standing at // bars lumbar side glide L to correct R list 4x10 3: standing in front of mirror with SC lumbar side glide L to correct R list 4x10 4: *Access Code: [email or web address] URL: [email or web address] Date: 04/16/2024 Prepared by: Liseth Silva Exercises - Lateral Shift Correction at Wall (Mirrored) - 2-3 x daily - 7 x weekly - 4 sets - 10 reps - 1 hold Skilled Intervention: Patient was educated in proper exercise technique and purpose for exercises. Skilled judgment was used in selection of appropriate interventions. Provided written instruction for home exercise program to facilitate proper performance and compliance. Correct performance of therapeutic exercises was facilitated with verbal, visual, and tactile cuing. Educated patient on rationale for performing exercises in regards to decreasing fatigue , includingbalance, increase ease of ADL, and ROM and function . Patient education as noted. Self-Correction Management: 1: discussed at length how a lumbar shift would appear to cause one leg to look longer 2: discussed centralization of symptoms is a desired response 3: advised pt. to think about stacking the shoulders over the hips when standing with SC and then progress to walking with this posture correction. Skilled Intervention: Skilled judgment in the selection of proper modification for activity of daily living/home management based on clinical presentation, deficits, and needs. Provided written instruction for activities of daily living techniques to facilitate proper performance and compliance. Reviewed patient specific diagnosis in relation to activities of daily living/home management. Activity progression based on professional judgement. Maximum verbal cues for maintaining neutral spine alignment. Provided written instruction for home program to facilitate proper performance and compliance. Correct performance of home program was facilitated with verbal, visual, and tactile cueing. Billing Therapeutic Exercise Treatment Minutes: 25 Self-Care/Home Management Treatment Minutes: 6 Skilled Treatment Time Minutes (timed and untimed codes): 31 Total Session Time (minutes): 31 Session Start Time : 1039 Session Stop Time : 1110 Liseth Alanis PT [facility] NoteHNO ID: [id number] Author: LISETH ALANIS PT Service: ? Author Type: Physical Therapist Type: Progress Notes Filed: 04/16/2024 12:40 Note Text: Episode Visit Count: 10 Therapist That Will Accept/Oversee The Plan Of Care: Liseth Alanis Start of Care Date: 01/24/24 Onset Date: 01/23/21 Plan of Care Certification Date: 03/13/24 Next Certification Due Date: 05/08/24 REHABILITATION AND SPORTS THERAPY PHYSICAL THERAPY TREATMENT NOTE ASSESSMENT: Mary Alice Ga tolerated the session with fatigue and expected muscle soreness. She demonstrated difficulty with self correcting R lateral shift without use of mirror for visual cue or // bars for optimal BUE stability. Symptoms centralize from the leg with repeated side glides. The patient will continue to benefit from ongoing skilled physical therapy to progress toward set goals. PLAN FOR NEXT VISIT: continue L lumbar side glides as tolerated, consider seated paloff press to improve self correction with R lateral shift SUBJECTIVE: Pt. arrived 9 min past apt. start time. Her dog is unfortunately ill. Pt. says that she saw ortho about her hip. She was shown xrays and informed that it is her spine that causes hip pain. Pt. denies hip pain today, complains of only low back pain. Pain: Pain Pain Level: 5 Pain Location: Back Pain Level 2: 0 Pain Location 2: Hip - Left, Hip - Right Post Treatment Pain Post Treatment Pain Level: 7 Post Treatment Pain Location: Back OBJECTIVE MEASURES WITH LEVEL OF FUNCTION: Repeated Test Movements - Lumbar Other Lumbar Repeated Test Movements: Yes Other Repeated Test Movements - Lumbar SGIS/L - Symptoms During: produces SGIS/L - Symptoms After: better, increase ROM TREATMENT: Therapeutic Exercise: 1: SciFit seat 13, level 2, 5 min, 1:1 throughout, subjective collected 2: standing at // bars lumbar side glide L to correct R list 4x10 3: standing in front of mirror with SC lumbar side glide L to correct R list 4x10 4: *Access Code: [email or web address] URL: [email or web address] Date: 04/16/2024 Prepared by: Liseth Alanis Exercises - Lateral Shift Correction at Wall (Mirrored) - 2-3 x daily - 7 x weekly - 4 sets - 10 reps - 1 hold Skilled Intervention: Patient was educated in proper exercise technique and purpose for exercises. Skilled judgment was used in selection of appropriate interventions. Provided written instruction for home exercise program to facilitate proper performance and compliance. Correct performance of therapeutic exercises was facilitated with verbal, visual, and tactile cuing. Educated patient on rationale for performing exercises in regards to decreasing fatigue , including balance, increase ease of ADL, and ROM and function . Patient education as noted. Self-Correction Management: 1: discussed at length how a lumbar shift would appear to cause one leg to look longer 2: discussed centralization of symptoms is a desired response 3: advised pt. to think about stacking the shoulders over the hips when standing with SC and then progress to walking with this posture correction. Skilled Intervention: Skilled judgment in the selection of proper modification for activity of daily living/home management based on clinical presentation, deficits, and needs. Provided written instruction for activities of daily living techniques to facilitate proper performance and compliance. Reviewed patient specific diagnosis in relation to activities of daily living/home management. Activity progression based on professional judgement. Maximum verbal cues for maintaining neutral spine alignment. Provided written instruction for home program to facilitate proper performance and compliance. Correct performance of home program was facilitated with verbal, visual, and tactile cueing. Billing Therapeutic Exercise Treatment Minutes: 25 Self-Care/Home Management Treatment Minutes: 6 Skilled Treatment Time Minutes (timed and untimed codes): 31 Total Session Time (minutes): 31 Session Start Time : 1039 Session Stop Time : 1110 Liseth Alanis, [facility]08-07-2024 History of Present illness Narrative* Charles Amanda, PT - 04/10/2024 12:58 PM EDT Episode Visit Count: 6 Medicare visits current year: 6 Therapist That Will Accept/Oversee The Plan Of Care: Liseth Alanis Start of Care Date: 01/24/24 Onset Date: 01/23/21 Plan of Care Certification Date: 03/13/24 Next Certification Due Date: 05/08/24 Patient Identified by Name and Date of : Yes [facility] REHABILITATION AND SPORTS THERAPY PHYSICAL THERAPY WOUND TREATMENT NOTE ASSESSMENT: patient is making gains medially >> laterally. The medial wound is now a cluster of 4 areas due to epithelial bridging breaking the wound into smaller segments. The lateral wound with increased sensitivity this date. Raised centrally due to hypergranular tissue. Minimal amounts ofnecrotic tissue marbled on the wound bed (slough and fibrotic stranding). Chemical debridement withsilver nitrate repeated this date to the lateral wound to reduce hypergranular tissue. Continued wound care is warranted as progress is being made. PLAN FOR NEXT VISIT: continue with active wound care, compression imperative SUBJECTIVE: Patient Pain Tool: Verbal (Numeric Rating or Visual Analog Scale) Pain Level: 5 Pain Location: Leg-Right Description: Sore, Tenderness Duration: Continuous Intervention/Comfort measure: Medication, Reposition, Relaxation, Distractions, Emotional Support/Reassurance, Exercise, Positioning, Other: See comment (compression and elevation) Response To Pain Intervention: sore;burning;tender: 6/10 on the R LE OBJECTIVE: Patient presents for follow-up wound care treatment with her cane and antalgic gait due to back and hip issues. The compression dressing remains intact on the RIGHT LE and is in good position and good condition. No strike- through drainage. WOUND STATUS: Wound 02/29/24 1600 Venous Ulcer Calf Distal;Right;Lateral (Active) Assessments 04/10/2024 12:15 PM Site Assessment Red;Yellow;Other (Comment) (hypergranular) Elif-Wound Assessment Fragile;Hyperpigmented;Painful Wound Length (cm) 3.5 cm Wound Width (cm) 5.1 cm Wound Surface Area (cm^2) 17.85 cm^2 Wound Depth (cm) 0.2 cm (along periphery. Hypergranular/raised central bed) Wound Volume (cm^3) 3.57 cm^3 Wound Healing % 30 Drainage Description Serosanguineous Drainage Amount Moderate Odor None Elif-Wound Treatment Vaseline;Zinc Oxide Treatments PT Debridement;Cleansed;Mechanical Debridement;Chemical Debridement;PT Mist Therapy;PT Compression Dressing Changed Changed State of Healing Early/partial granulation Wound Bed Granulation (%) 80 % Wound Bed Epithelium (%) 5 % (edges scalloping inward) Wound Bed Slough (%) 15 % Non-staged Wound Description Partial thickness No associated orders. Wound 02/29/24 1600 Venous Ulcer Calf Distal;Right;Medial (Active) Assessments 04/10/2024 12:15 PM Site Assessment Red;Yellow;Arroyo Elif-Wound Assessment Hyperpigmented;Fragile;Scarred Shape anterior satellite remains closed but fragile. The global medial wound with increased epithelial migration--epithelial briding breaking the wound up into 4 segments, one of which is very small anteriorly distally Wound Length (cm) 4.4 cm Wound Width (cm) 3.5 cm Wound Surface Area (cm^2) 15.4 cm^2 Wound Depth (cm) 0.1 cm Wound Volume (cm^3) 1.54 cm^3 Wound Healing % 77 Drainage Description Serosanguineous Drainage Amount Small Odor None Elif-Wound Treatment Vaseline;Zinc Oxide Treatments PT Debridement;Cleansed;Mechanical Debridement;PT Compression;PT Mist Therapy Dressing Changed Changed State of Healing Early/partial granulation Wound Bed Granulation (%) 35 % Wound Bed Epithelium (%) 50 % Wound Bed Slough (%) 15 % Non-staged Wound Description Partial thickness No associated orders. TREATMENT: Conservative Sharp Debridement <20cm (41276): 3 mm curette used to selectively remove slough andreduce fibrotic tissue on all of the wounds as able/tolerated. Chemical debridement with silver nitrate to reduce the hypergranular tissue laterally. Skilled interventions: -Knowledge of tissue anatomy and wound care -Skilled judgment was provided after wound assessment in selection of appropriate interventions. -Skilled hands-on technique for active wound care/sharp debridement with appropriate instruments todebride/remove devitalized and/or necrotic tissue to promote wound healing. -Assessment of pain tolerance throughout the session, use of Topical lidocaine prn -<20cm2 nonviable tissue removed Nonselective Debridement (20885): The dressing was removed. The RIGHT LE was cleansed with warm soapy water with Chlorhexidine. Mechanical debridement via towel and gauze swiping to remove loose slough on the wound beds, remove skin scales and accumulated drainage elif-wound, and reduce elif-wound ointment residue. Post care, wounds rinsed with NS and patted dry. Skilled interventions: -Skilled knowledge of wound care and skilled application of knowledge for optimal wound healing environment and preventing/ minimizing adverse side effects. -Skilled education on rationale for dressing choice for reinforcement and improved compliance at home. -Skilled judgement and knowledge for optimization of wound care and skin integrity. -Skilled gentle cleansing and mechanical debridement to remove loose non-viable tissue, reduce bio-burden and promote improved global skin integrity -Dressing management/application: Vaseline applied to the global intact skin of the RIGHT LE. Zinc oxide to the elif-wound tissue of the wounds. Scant triple antibiotic ointment to the wound beds + Promogran medially and NS moistened Endoform laterally + Acticoat + Compression dressing as below. Modalities: Noncontact Ultrasound MIST: 14 min total to the RIGHT LE wounds (7 min to each wound) Skilled interventions: -Proper administration and selection of modality based on clinical presentation, deficits, and needs -Patient response monitored throughout treatment Compression Therapy (Multilayer Venous Wound Compression System) (58235): Skilled interventions: -Skilled knowledge of wound care and skilled application of knowledge for optimal wound healing environment and preventing/minimizing adverse side effects. -Skilled education on rationale for dressing choice for reinforcement and improved compliance at home. -Compression dressing Profore Lite (20-30mmHg) applied to Right LE with ABD pads x 2 between the layers for added drainage support. -Toes are warm and pink before and post boot application. -S&S of intolerance reviewed. Reinforced with the patient that if she exhibits a change in color to the extremity, change in temperature, increased pain, or the dressing becomes wet, the patient was instructed to remove the dressing. If patient needs to remove the dressing, she was instructed to apply dressings at home per her usual. Patient voices understanding with intent to comply. Post Treatment/Symptom(s): See above Adverse event? No Billing: Noncontact Ultrasound Mist (88849): no charge Selective Sharp Debridement <20cm (34351): 1 unit Nonselective debridement (36283): no charge Multi-Layer Venous Wound Compression System (10311): 1 unit (untimed) Session Start Time : 1149 Session Stop Time : 1253 Total Time: 64 minutes Amanda Soto PT documented [facility] History of Present illness Narrative* Amanda Soto PT - 04/04/2024 3:30 PM EDT Episode Visit Count: 5 Medicare visits current year: 5 Therapist That Will Accept/Oversee The Plan Of Care: Liseth Alanis Start of Care Date: 01/24/24 Onset Date: 01/23/21 Plan of Care Certification Date: 03/13/24 Next Certification Due Date: 05/08/24 Patient Identified by Name and Date of : Yes [facility] REHABILITATION AND SPORTS THERAPY PHYSICAL THERAPY WOUND TREATMENT NOTE ASSESSMENT: patient's RIGHT LE wounds are improved. The medial area has slightly more epithelial migration, breaking the area up into smaller segments. However, slough with underlying fibrotic tissuequality remains present. The lateral wound with good reduction of the hypergranular tissue following silver nitrate use. Scalloping of the edge is noted due to emerging new epithelial tissue. Continued wound care is warranted and necessary. PLAN FOR NEXT VISIT: continue with active wound care SUBJECTIVE: Patient with a temporary dressing intact due to US yesterday. Patient states the wounds have been abit more tender. Pain Tool: Verbal (Numeric Rating or Visual Analog Scale) Pain Level: 4 Pain Location: Leg-Right Description: Sore Duration: Continuous Intervention/Comfort measure: Medication, Reposition, Relaxation, Distractions, Education, Emotional Support/Reassurance, Positioning, Other: See comment (compression and elevation) Response To Pain Intervention: sore, burning, 4-5/10 OBJECTIVE: Patient presents for follow-up wound care treatment. Patient presents with temporary dressing applied at the US appointment. Coban applied, but only to part of the leg, resulting in swelling of the foot and proximal calf. Patient's spouse present this date. WOUND STATUS: Wound 02/29/24 1600 Venous Ulcer Calf Distal;Right;Lateral (Active) Assessments 04/04/2024 3:00 PM Site Assessment Red;Yellow Elif-Wound Assessment Fragile;Hyperpigmented Wound Length (cm) 3.5 cm Wound Width (cm) 5 cm Wound Surface Area (cm^2) 17.5 cm^2 Wound Depth (cm) 0.2 cm (hypergranular tissue reduced) Wound Volume (cm^3) 3.5 cm^3 Wound Healing % 31 Drainage Description Serosanguineous Drainage Amount Moderate Odor None Elif-Wound Treatment Vaseline;Zinc Oxide Treatments PT Mist Therapy;PT Debridement;Cleansed;Mechanical Debridement;PT Compression Dressing Changed Changed State of Healing Early/partial granulation Wound Bed Granulation (%) 80 % Wound Bed Slough (%) 20 % Non-staged Wound Description Partial thickness No associated orders. Wound 02/29/24 1600 Venous Ulcer Calf Distal;Right;Medial (Active) Assessments 04/04/2024 3:00 PM Site Assessment Red;Yellow;[place]royo Elif-Wound Assessment Hyperpigmented;Fragile;Scarred Shape small anterior satellite wound essentially resolved Wound Length (cm) 6 cm Wound Width (cm) 4 cm Wound Surface Area (cm^2) 24 cm^2 Wound Depth (cm) 0.1 cm Wound Volume (cm^3) 2.4 cm^3 Wound Healing % 64 Drainage Description Serosanguineous Drainage Amount Moderate Odor None Elif-Wound Treatment Vaseline;Zinc Oxide Treatments PT Debridement;PT Mist Therapy;Cleansed;Mechanical Debridement;PT Compression Dressing Changed Changed State of Healing Early/partial granulation Wound Bed Granulation (%) 40 % Wound Bed Epithelium (%) 40 % Wound Bed Slough (%) 20 % Non-staged Wound Description Partial thickness No associated orders. TREATMENT: Conservative Sharp Debridement <20cm (72262): 3 mm curette used to selectively remove slough andreduce fibrotic tissue on all of the wounds as able/tolerated. Skilled interventions: -Knowledge of tissue anatomy and wound care -Skilled judgment was provided after wound assessment in selection of appropriate interventions. -Skilled hands-on technique for active wound care/sharp debridement with appropriate instruments todebride/remove devitalized and/or necrotic tissue to promote wound healing. -Assessment of pain tolerance throughout the session, use of Topical lidocaine prn -<20cm2 nonviable tissue removed Nonselective Debridement (82926): The dressing was removed. The RIGHT LE was cleansed with warm soapy water with Chlorhexidine. Mechanical debridement via towel and gauze swiping to remove loose slough on the wound beds, remove skin scales and accumulated drainage elif-wound, and reduce elif-wound ointment residue. Post care, wounds rinsed with NS and patted dry. Skilled interventions: -Skilled knowledge of wound care and skilled application of knowledge for optimal wound healing environment and preventing/ minimizing adverse side effects. -Skilled education on rationale for dressing choice for reinforcement and improved compliance at home. -Skilled judgement and knowledge for optimization of wound care and skin integrity. -Skilled gentle cleansing and mechanical debridement to remove loose non-viable tissue, reduce bio-burden and promote improved global skin integrity -Dressing management/application: Vaseline applied to the global intact skin of the RIGHT LE. Zinc oxide to the elif-wound tissue of the wounds. Scant triple antibiotic ointment to the wound beds + Promogran medially and NS moistened Endoform laterally + Acticoat + Compression dressing as below. Modalities: Noncontact Ultrasound MIST: 14 min total to the RIGHT LE wounds (7 min to each wound) Skilled interventions: -Proper administration and selection of modality based on clinical presentation, deficits, and needs -Patient response monitored throughout treatment Compression Therapy (Multilayer Venous Wound Compression System) (03525): Skilled interventions: -Skilled knowledge of wound care and skilled application of knowledge for optimal wound healing environment and preventing/minimizing adverse side effects. -Skilled education on rationale for dressing choice for reinforcement and improved compliance at home. -Compression dressing Profore Lite (20-30mmHg) applied to Right LE with ABD pads x 2 between the layers for added drainage support. -Toes are warm and pink before and post boot application. -Reinforced with the patient that if she exhibits a change in color to the extremity, change in temperature, increased pain, or the dressing becomes wet, the patient was instructed to remove the dressing. S&S of intolerance reviewed. If patient needs to remove the dressing, she was instructed to apply dressings at home per her usual. Patient voices understanding with intent to comply. Post Treatment/Symptom(s): See above Adverse event? No Billing: Noncontact Ultrasound Mist (11034): no charge Selective Sharp Debridement <20cm (65085): 1 unit Nonselective debridement (77205): no charge Multi-Layer Venous Wound Compression System (17351): 1 unit (untimed) Session Start Time : 5 Session Stop Time : 1530 Total Time: 55 minutes Amanda Soto PT documented in this encounterGal[facility]07-30-[facility]24 NoteHNO ID: [id number] Author: MARISELA MCCARTY MD Service: ? Author Type: Physician Type: Progress Notes Filed: 04/02/2024 16:29 Note Text: Orthopaedic Office Note: April 02, 2024 4:24 PM Mary Alice Ga 73 year old History: Mary Alice is here for evaluation of her left hip. She has a known history of substantial lumbar scoliosis, likely degenerative She had a femoral neck fracture 3 years ago in [place] and was treated with a uncemented hemiarthroplasty Her primary complaint is walking uneven, crooked, a perceived leg length discrepancy and loss of balance She has some discomfort but is more of a dull ache Subjective: See above Updated ROS: No changes Updated Exam: Left lower Extremity Left lower extremity neurovascularly intact Tolerates arcs of motion of the hip which are not very painful Mild tenderness to palpation over the trochanter Leg lengths are within 5 to 6 mm of one another Negative [place] Updated Imaging: Hemiarthroplasty in appropriate position alignment Leg length discrepancy 5 to 6 mm measured on imaging Assessment and Plan: I had an honest discussion with her today regarding her left hip. She had a hemiarthroplasty performed, and I believe her leg length discrepancy is within 5 to 6 mm both clinically and radiographically. I would not advise her to have revision surgery for this alone. She does have substantial lumbar degenerative scoliosis visible on x-rays in 2017. She has not been treated for this. I believe some of her obliquity is likely coming from the sexually. I have discussed with her directly today and she would like to see a spine provider which I provided a referral. She does have increased offset of the left hip, which is different from leg length, and again would not be a target for revision surgery. I do not believe conversion to a total hip would benefit her currently because she is not having true intra-articular groin pain. I spent a total of approximately 35 minutes on the date of the service which included preparing to see the patient, [id number] patient care, completing clinical documentation, obtaining and/or reviewing separately obtained history, performing a medically appropriate examination, counseling and educating the patient/family/caregiver, ordering medications, tests, or procedures, communicating with other HCPs (not separately reported), independently interpreting results (not separately reported), communicating results to the patient/family/caregiver, and care coordination (not separately reported). Marisela Mccarty MD [facility] History of Present illness Narrative* Marisela Mccarty MD - 04/02/2024 1:49 PM EDT Orthopaedic Office Note: April 02, 2024 4:24 PM Mary Alice Ga 73 year old History: Mary Alice is here for evaluation of her left hip. She has a known history of substantial lumbar scoliosis, likely degenerative She had a femoral neck fracture 3 years ago in [place] and was treated with a uncemented hemiarthroplasty Her primary complaint is walking uneven, crooked, a perceived leg length discrepancy and loss of balance She has some discomfort but is more of a dull ache Subjective: See above Updated ROS: No changes Updated Exam: Left lower Extremity Left lower extremity neurovascularly intact Tolerates arcs of motion of the hip which are not very painful Mild tenderness to palpation over the trochanter Leg lengths are within 5 to 6 mm of one another Negative [place] Updated Imaging: Hemiarthroplasty in appropriate position alignment Leg length discrepancy 5 to 6 mm measured on imaging Assessment and Plan: I had an honest discussion with her today regarding her left hip. She had a hemiarthroplasty performed, and I believe her leg length discrepancy is within 5 to 6 mm both clinically and radiographically. I would not advise her to have revision surgery for this alone. She does have substantial lumbar degenerative scoliosis visible on x-rays in 2017. She has not beentreated for this. I believe some of her obliquity is likely coming from the sexually. I have discussed with her directly today and she would like to see a spine provider which I provided a referral. She does have increased offset of the left hip, which is different from leg length, and again wouldnot be a target for revision surgery. I do not believe conversion to a total hip would benefit her currently because she is not having true intra-articular groin pain. I spent a total of approximately 35 minutes on the date of the service which included preparing to see the patient, [id number] patient care, completing clinical documentation, obtaining and/or reviewing separately obtained history, performing a medically appropriate examination, counseling and educating the patient/family/caregiver, ordering medications, tests, or procedures, communicating withother HCPs (not separately reported), independently interpreting results (not separately reported),communicating results to the patient/family/caregiver, and care coordination (not separately reported). Marisela Mccarty MD Orthopaedic Surgery documented in this encounterGalion [facility]07-30-2024 History of Present illness Narrative* Chandrika Rader Tech - 04/02/2024 12:40 PM EDT Radiology Service Progress Note PATIENT NAME: Mary Alice Ga DATE OF SERVICE: April 02, 2024 TIME: 1:02 PM PATIENT IDENTITY VERIFICATION COMPLETED USING TWO (2) IDENTIFIERS: Name and Date of confirmedby patient verbally. FALL SCREENING: Has the patient had 2 falls in the last year or 1 fall with injury or currently using an Ambulatory Assistive Device (Walker, Cane, Wheelchair, Crutches, etc.)? No PATIENT GENDER DATA: Female. status: : No status: NO. PATIENT RELEVANT IMPLANT DATA REVIEWED: Not Applicable PATIENT PRESENTS WITH AN IMPLANTABLE OR ATTACHED WOODWORKING CRAFTSMAN: No RADIOLOGY DEPARTMENT: General X-ray: Exam(s) Completed: Pelvis X-Ray: Pelvis with Hip Left and Wt. Bearing PERIPHERAL IV DATA: Not applicable SIGNED BY: Juhi Valles April 02, 2024 1:02 PM documented in this encounterGalion [facility]07-29-2024 NoteHNO ID: [id number] Author: LISETH ALANIS PT Service: ? Author Type: Physical Therapist Type: Progress Notes Filed: 04/01/2024 16:56 Note Text: Episode Visit Count: 9 Therapist That Will Accept/Oversee The Plan Of Care: Liseth Alanis Start of Care Date: 01/24/24 Onset Date: 01/23/21 Plan of Care Certification Date: 03/13/24 Next Certification Due Date: 05/08/24 REHABILITATION AND SPORTS THERAPY PHYSICAL THERAPY TREATMENT NOTE ASSESSMENT: Mary Alice Ga tolerated the session with fatigue and expected muscle soreness. She demonstrated improvements in static TA stabilization in the standing position this visit while using the SC. Pt. Reports more challenge felt on the L side with unilateral UE TA pull down resistance band as compared to the R side. The patient will continue to benefit from ongoing skilled physical therapy to progress toward set goals. PLAN FOR NEXT VISIT: continue standing TA activation stabilization. SUBJECTIVE: She states that the back and leg pain comes and goes - does not rate when asked to rate it. She sees ortho tomorrow to determine their opinion regarding her hip. Patient Goals: amb without an AD from handicap spot to front door without LOB Pain: Pain Pain Location: Back Pain Location 2: Leg - Left, Leg - Right Post Treatment Pain Post Treatment Pain Location: Back Post Treatment Symptoms: it's back there. - pt. response to question, how is your back. OBJECTIVE MEASURES WITH LEVEL OF FUNCTION: TREATMENT: Therapeutic Exercise: 1: SciFit seat 13, level 2.0, 5 min, 1:1 throughout, subjective collected 2: L lumbar side glides in front of mirrior x10 holding onto // bars with BUE - dc due to complaints of increased pain 3: R and L hip extension x2 UE support at // bars 4: unilat TA pull down orange band, 2x12 each side, using SC CL side 5: seated lumbar extension 2x10, 3-5 sec hold 6: setaed TA stabilization pushing down onto B knees 1x5, 10 sec hold Skilled Intervention: Patient was educated in proper exercise technique and purpose for exercises. Skilled judgment was used in selection of appropriate interventions. Correct performance of therapeutic exercises was facilitated with verbal, visual, and tactile cuing. Educated patient on rationale for performing exercises in regards to decreasing fatigue , including balance, increase ease of ADL, and ROM and function . Patient education as noted. Neuromuscular Re-Education: 1: BOSU taps fwd alt 2x20 with x1 UE support x1 UE support 2: BOSU taps lateral 2x10 each side x1 UE suport 3: reverse stepping 20' 2x with SC 4: lateral stepping 20' 2x each direction with SC Skilled Intervention: Skilled judgment used to assess appropriate program for balance and coordination activity. Education in proprioceptive/kinesthetic awareness during standing and dynamic activities. Ensured patient safety with use of // bars and SC. Correct performance of home program was facilitated with verbal, visual, and tactile cueing. Patient education as noted. Billing Therapeutic Exercise Treatment Minutes: 25 Neuromuscular Re-Education Treatment Minutes: 16 Skilled Treatment Time Minutes (timed and untimed codes): 41 Total Session Time (minutes): 41 Session Start Time : 1615 Session Stop Time : 1656 Liseth Alanis, [facility]07-29-2024 History of Present illness Narrative* Liseth Alanis, PT - 04/01/2024 4:18 PM EDT Episode Visit Count: 9 Therapist That Will Accept/Oversee The Plan Of Care: Listeh Alanis Start of Care Date: 01/24/24 Onset Date: 01/23/21 Plan of Care Certification Date: 03/13/24 Next Certification Due Date: 05/08/24 REHABILITATION AND SPORTS THERAPY PHYSICAL THERAPY TREATMENT NOTE ASSESSMENT: Mary Alice Ga tolerated the session with fatigue and expected muscle soreness. She demonstrated improvements in static TA stabilization in the standing position this visit while using the SC. Pt. Reports more challenge felt on the L side with unilateral UE TA pull down resistance band as compared to the R side. The patient will continue to benefit from ongoing skilled physical therapy to progress toward set goals. PLAN FOR NEXT VISIT: continue standing TA activation stabilization. SUBJECTIVE: She states that the back and leg pain comes and goes - does not rate when asked to rateit. She sees ortho tomorrow to determine their opinion regarding her hip. Patient Goals: amb without an AD from handicap spot to front door without LOB Pain: Pain Pain Location: Back Pain Location 2: Leg - Left, Leg - Right Post Treatment Pain Post Treatment Pain Location: Back Post Treatment Symptoms: it's back there. - pt. response to question, how is your back. OBJECTIVE MEASURES WITH LEVEL OF FUNCTION: TREATMENT: Therapeutic Exercise: 1: SciFit seat 13, level 2.0, 5 min, 1:1 throughout, subjective collected 2: L lumbar side glides in front of mirrior x10 holding onto // bars with BUE - dc due to complaints of increased pain 3: R and L hip extension x2 UE support at // bars 4: unilat TA pull down orange band, 2x12 each side, using SC CL side 5: seated lumbar extension 2x10, 3-5 sec hold 6: setaed TA stabilization pushing down onto B knees 1x5, 10 sec hold Skilled Intervention: Patient was educated in proper exercise technique and purpose for exercises. Skilled judgment was used in selection of appropriate interventions. Correct performance of therapeutic exercises was facilitated with verbal, visual, and tactile cuing. Educated patient on rationale for performing exercises in regards to decreasing fatigue , includingbalance, increase ease of ADL, and ROM and function . Patient education as noted. Neuromuscular Re-Education: 1: BOSU taps fwd alt 2x20 with x1 UE support x1 UE support 2: BOSU taps lateral 2x10 each side x1 UE suport 3: reverse stepping 20' 2x with SC 4: lateral stepping 20' 2x each direction with SC Skilled Intervention: Skilled judgment used to assess appropriate program for balance and coordination activity. Education in proprioceptive/kinesthetic awareness during standing and dynamic activities. Ensured patient safety with use of // bars and SC. Correct performance of home program was facilitated with verbal, visual, and tactile cueing. Patient education as noted. Billing Therapeutic Exercise Treatment Minutes: 25 Neuromuscular Re-Education Treatment Minutes: 16 Skilled Treatment Time Minutes (timed and untimed codes): 41 Total Session Time (minutes): 41 Session Start Time : 1615 Session Stop Time : 165 Liseth Alanis PT documented in this encounterGalion [facility]07-23-2024 History of Present illness Narrative* Amanda Soto PT - 03/26/2024 9:33 PM EDT Images from the original note were not included. Episode Visit Count: 4 Medicare visits current year: 4 Therapist That Will Accept/Oversee The Plan Of Care: Amanda Soto Start of Care Date: 01/24/24 Onset Date: 01/23/21 Plan of Care Certification Date: 03/13/24 Next Certification Due Date: 05/08/24 Patient Identified by Name and Date of : Yes [facility] REHABILITATION AND SPORTS THERAPY PHYSICAL THERAPY WOUND TREATMENT AND PROGRESS REPORT PLAN OF CARE UPDATE: Patient's wounds are making progress. The medial area has more epithelial migration, forming bridges and breaking more segments apart. The anterior satellite has early epithelial tissue over the area. The lateral wound still has some hypergranular tissue in the center, but epithelial migration is occurring along the wound perimeter. Patient is tolerating the compression dressing well. Continued wound care is warranted and necessary to promote healing in order for patient to undergoing THR surgery. Functional Gains: increased wound healing as evidenced by reducing wound sizes, decreased nonviabletissue, and increased viable tissue Goals for Episode of Care Updated: 03/26/2024 to be achieved by 08/27/24 (WOUND CARE) Debride 50% of non-viable tissue from wounds on the RIGHT LE: Not met but improving Eliminate all nonviable tissue from wounds on the RIGHT LE: not met Decrease overall wound surface area (length x width) by 50% for wounds on the RIGHT LE: not met butprogress has been made Achieve full closure the anterior satellite wound: nearly met, early epithelial tissue forming Achieve full closure of the wound of the Medial RIGHT LE: Not met Achieve full closure of the wound of the Lateral RIGHT LE : Not met Eliminate wound drainage: not met Eliminate pain: not met Patient voices understanding of assisted edema management via compression garments, leg elevation,and exercise.:addressed but reinforcement to continue with progressive wound healing. PLAN: Follow up for one visit(s) per week for twenty weeks for, Selective debridement <20cm, Selective debridement >20cm, Nonselective debridement, Noncontact Ultrasound Mist, Compression Therapy (dressing), Patient/ Caregiver Education, and Self Care/ Home Management SUBJECTIVE: Patient states after the first day she has better tolerance of the RIGHT LE. Tired of wearing her husbands shoe. Wants the wounds to heal so she can have THR surgery. Patient rating of condition: better Pain Tool: Verbal (Numeric Rating or Visual Analog Scale) Pain Level: 3 Pain Location: Leg-Right Description: Sore Duration: Continuous Intervention/Comfort measure: Medication, Reposition, Relaxation, Distractions, Education, Emotional Support/Reassurance, Positioning, Other: See comment (elevation and compression) Response To Pain Intervention: burning/stinging more laterally. Sore/tender 3-/10 PROMIS Scales 02/13/2024 02/28/2024 03/13/2024 Higher is Better Phys Func - Score 33 (moderate dysfunction) Phys Func - Percentile 4 Self-Eff Symptom - Score 41 (Average) 35 (Low) Self-Eff Symptom - Percentile 18 7 T-scores: mean of general population = 50. 5 points is clinically meaningfully difference Percentiles provide an indication of how the patient's score ranks in relation to the general population. Higher percentile rankings indicate better function/quality of life. 50th percentile is the average of the general population and indicates half of respondents had a worse score. T-scores: mean of general population = 50. 5 points is clinically meaningfully difference Percentiles provide an indication of how the patient's score ranks in relation to the general population. Higher percentile rankings indicate better function/quality of life. 50th percentile is the average of the general population and indicates half of respondents had a worse score. OBJECTIVE MEASURES WITH LEVEL OF FUNCTION: Patient presents for follow-up wound care treatment. Patient presents with the compression dressingintact and in good position. Gait is mod-I with a cane but antalgic due to hip and back issues. WOUND STATUS: Wound 02/29/24 1600 Venous Ulcer Calf Distal;Right;Lateral (Active) Assessments 03/26/2024 3:00 PM Site Assessment Red;Yellow Elif-Wound Assessment Hyperpigmented;Fragile Wound Length (cm) 3.9 cm Wound Width (cm) 5.3 cm Wound Surface Area (cm^2) 20.67 cm^2 Wound Depth (cm) 0.2 cm (minor hypergranular centrally, depth on the perimeter) Wound Volume (cm^3) 4.134 cm^3 Wound Healing % 19 Drainage Description Serosanguineous Drainage Amount Large Odor None Elif-Wound Treatment Vaseline;Zinc Oxide Treatments PT Debridement;PT Mist Therapy;Cleansed;Mechanical Debridement;PT Compression Dressing Changed Changed State of Healing Early/partial granulation Wound Bed Granulation (%) 75 % Wound Bed Slough (%) 25 % Non-staged Wound Description Partial thickness No associated orders. Wound 02/29/24 1600 Venous Ulcer Calf Distal;Right;Medial (Active) Assessments 03/26/2024 3:00 PM Site Assessment Red;Yellow;White Elif-Wound Assessment Hyperpigmented;Fragile;Scarred Shape small anterior satellite wound: 0.5 x 0.5 x 0.2: early epithelialization Wound Length (cm) 6.3 cm Wound Width (cm) 5 cm Wound Surface Area (cm^2) 31.5 cm^2 Wound Depth (cm) 0.1 cm Wound Volume (cm^3) 3.15 cm^3 Wound Healing % 52 Drainage Description Serosanguineous Drainage Amount Large Odor None Elif-Wound Treatment Vaseline;Zinc Oxide Treatments PT Debridement;PT Mist Therapy;Cleansed;Mechanical Debridement;PT Compression Dressing Changed Changed State of Healing Early/partial granulation Wound Bed Granulation (%) 40 % Wound Bed Epithelium (%) 35 % Wound Bed Slough (%) 25 % Non-staged Wound Description Partial thickness No associated orders. Current Functional Mobility Gait: Modified Independent Gait Device: Cane Gait Distance (feet): ad ruba Gait Deviations: General Deviations General Deviations/Observations: Antalgic gait (hip issues, back issues) TREATMENT: Conservative Sharp Debridement <20cm (43570): 3 mm curette used to selectively remove slough andreduce fibrotic tissue on all of the wounds as able/tolerated. Chemical debridement with silver nitrate to reduce the hypergranular tissue on the lateral wound and also used to select areas of the medial wound to reduce more dense fibrotic areas. Skilled interventions: -Knowledge of tissue anatomy and wound care -Skilled judgment was provided after wound assessment in selection of appropriate interventions. -Skilled hands-on technique for active wound care/sharp debridement with appropriate instruments todebride/remove devitalized and/or necrotic tissue to promote wound healing. -Assessment of pain tolerance throughout the session, use of Topical lidocaine prn -<20cm2 nonviable tissue removed Nonselective Debridement (79225): The compression dressing was removed. RIGHT LE cleansed with warmsoapy water with Chlorhexidine. Mechanical debridement via towel and gauze swiping to remove loose slough on the wound beds, remove skin scales and accumulated drainage elif-wound, and reduce elif-wound ointment residue. Post care, wounds rinsed with NS and patted dry. Skilled interventions: -Skilled knowledge of wound care and skilled application of knowledge for optimal wound healing environment and preventing/ minimizing adverse side effects. -Skilled education on rationale for dressing choice for reinforcement and improved compliance at home. -Skilled judgement and knowledge for optimization of wound care and skin integrity. -Skilled gentle cleansing and mechanical debridement to remove loose non-viable tissue, reduce bio-burden and promote improved global skin integrity -Dressing management/application: Vaseline applied to the global intact skin of the RIGHT LE. Zinc oxide to the elif-wound of all wounds. Scant triple antibiotic ointment to the wound beds + Promogran + Acticoat + Compression dressing as below. Modalities: Noncontact Ultrasound MIST: 16 min total to the RIGHT LE wounds (8 min to each wound) Skilled interventions: -Proper administration and selection of modality based on clinical presentation, deficits, and needs -Patient response monitored throughout treatment Compression Therapy (Multilayer Venous Wound Compression System) (91452): Skilled interventions: -Skilled knowledge of wound care and skilled application of knowledge for optimal wound healing environment and preventing/minimizing adverse side effects. -Skilled education on rationale for dressing choice for reinforcement and improved compliance at home. -Compression dressing Profore Lite (20-30mmHg) applied to Right LE with DryMax and ABD pads x 2 between the layers for added drainage support. -Toes are warm and pink before and post boot application. -Reinforced with the patient that if she exhibits a change in color to the extremity, change in temperature, increased pain, or the dressing becomes wet, the patient was instructed to remove the dressing. S&S of intolerance reviewed. If patient needs to remove the dressing, she was instructed to apply dressings at home per her usual. Patient voices understanding with intent to comply. *instructed patient that she may remove the dressing at home the day of the US appt and shower prior to her US appt next week. Post shower, cleanse the wound well and use dressings as she has done previously and compression until next seen. Post Treatment/Symptom(s): See above Adverse event? No Billing: Noncontact Ultrasound Mist (50821): no charge Selective Sharp Debridement <20cm (85515): 1 unit Nonselective debridement (39187): no charge Multi-Layer Venous Wound Compression System (19057): 1 unit (untimed) Session Start Time : 1433 Session Stop Time : 1540 Total Time: 67 minutes Amanda Soto PT [facility] History of Present illness Narrative* Liseth Alanis, PT - 03/26/2024 11:46 AM EDT Program_ID:[id number] Access Code: [email or web address] URL: [email or web address] Date: 03-26-2024 Prepared By: Liseth Alanis Program Notes Exercises - Seated Lumbar Flexion Stretch - 2-3 x daily - 7 x weekly - 2-3 sets - 10 reps - Standing Hip Abduction with Counter Support - 1 x daily - 7 x weekly - 4 sets - 15 reps - Standing Knee Flexion with Counter Support - 1 x daily - 7 x weekly - 4 sets - 15 reps - Mini Squat with Counter Support - 1 x daily - 7 x weekly - 4 sets - 15 reps - Heel Raises with Counter Support - 1 x daily - 7 x weekly - 2 sets - 12 reps - Seated Anti-Rotation Press With Anchored Resistance - 1 x daily - 7 x weekly - 2 sets - 15 reps - Stir the Pot - 1 x daily - 7 x weekly - 2 sets - 10 reps * Liseth Alanis, PT - 03/26/2024 11:22 AM EDT Episode Visit Count: 8 Therapist That Will Accept/Oversee The Plan Of Care: Liseth Alanis Start of Care Date: 01/24/24 Onset Date: 01/23/21 Plan of Care Certification Date: 03/13/24 Next Certification Due Date: 05/08/24 REHABILITATION AND SPORTS THERAPY PHYSICAL THERAPY TREATMENT NOTE ASSESSMENT: Mary Alice F Migdalia tolerated the session with increased symptoms. She demonstrated improvements in LBP intensity with seated TA activation exiercise. The patient will continue to benefitfrom ongoing skilled physical therapy to progress toward set goals. PLAN FOR NEXT VISIT: assess LBP response to seated TA activation SUBJECTIVE: Pt. will see ortho, Dr. Mccarty next week to seek his opinion reguarding if she is a candidate for a total hip replacement. Patient Goals: amb without an AD from handicap spot to front door without LOB Pain: Pain Pain Level: 7 Pain Location: Back Additional Pain Information : Location 2 Pain Level 2: 0 Pain Location 2: Leg - Left, Leg - Right Post Treatment Pain Post Treatment Pain Level: 4 Post Treatment Pain Location: Back OBJECTIVE MEASURES WITH LEVEL OF FUNCTION: TREATMENT: Therapeutic Exercise: 1: SciFit seat 13, level 2.0, 5 min, 1:1 throughout, subjective collected 2: seated 55 cm physioball TA activation 4x10 (pt reports low back relief with active TA) 3: *seated paloff press pink band 2x 15 each side 4: *seated stir the pot, pink band 2x10 CW and CCW each side 5: seated 55 cm physioball TA activation 1x5, 10 sec hold 6: pink band issued. Skilled Intervention: Patient was educated in proper exercise technique and purpose for exercises. Skilled judgment was used in selection of appropriate interventions. Provided written instruction for home exercise program to facilitate proper performance and compliance. Correct performance of therapeutic exercises was facilitated with verbal, visual, and tactile cuing. Educated patient on rationale for performing exercises in regards to decreasing fatigue , includingbalance, and ROM and function . Patient education as noted. Self-Correction Management: 1: discussed that reduce back symptoms with TA activation suggests pt. may benefit from core strengthening Skilled Intervention: Skilled judgment in the selection of proper modification for activity of daily living/home management based on clinical presentation, deficits, and needs. Provided written instruction for activities of daily living techniques to facilitate proper performance and compliance. Reviewed patient specific diagnosis in relation to activities of daily living/home management. Activity progression based on professional judgement. Moderate verbal cues for maintaining neutral spine alignment. Provided written instruction for home program to facilitate proper performance and compliance. Correct performance of home program was facilitated with verbal, visual, and tactile cueing. Billing Therapeutic Exercise Treatment Minutes: 35 Self-Care/Home Management Treatment Minutes: 5 Skilled Treatment Time Minutes (timed and untimed codes): 40 Total Session Time (minutes): 40 Session Start Time : 1115 Session Stop Time : 1155 Liseth Alanis PT documented in this encounterGal[facility]07-[facility]24 NoteHNO ID: [id number] Author: LISETH ALANIS PT Service: ? Author Type: Physical Therapist Type: Progress Notes Filed: 03/26/2024 11:51 Note Text: Episode Visit Count: 8 Therapist That Will Accept/Oversee The Plan Of Care: Liseth Alanis Start of Care Date: 01/24/24 Onset Date: 01/23/21 Plan of Care Certification Date: 03/13/24 Next Certification Due Date: 05/08/24 REHABILITATION AND SPORTS THERAPY PHYSICAL THERAPY TREATMENT NOTE ASSESSMENT: Mary Alice Ga tolerated the session with increased symptoms. She demonstrated improvements in LBP intensity with seated TA activation exiercise. The patient will continue to benefit from ongoing skilled physical therapy to progress toward set goals. PLAN FOR NEXT VISIT: assess LBP response to seated TA activation SUBJECTIVE: Pt. will see orthoDr. Mccarty next week to seek his opinion reguarding if she is a candidate for a total hip replacement. Patient Goals: amb without an AD from handicap spot to front door without LOB Pain: Pain Pain Level: 7 Pain Location: Back Additional Pain Information : Location 2 Pain Level 2: 0 Pain Location 2: Leg - Left, Leg - Right Post Treatment Pain Post Treatment Pain Level: 4 Post Treatment Pain Location: Back OBJECTIVE MEASURES WITH LEVEL OF FUNCTION: TREATMENT: Therapeutic Exercise: 1: SciFit seat 13, level 2.0, 5 min, 1:1 throughout, subjective collected 2: seated 55 cm physioball TA activation 4x10 (pt reports low back relief with active TA) 3: *seated paloff press pink band 2x 15 each side 4: *seated stir the pot, pink band 2x10 CW and CCW each side 5: seated 55 cm physioball TA activation 1x5, 10 sec hold 6: pink band issued. Skilled Intervention: Patient was educated in proper exercise technique and purpose for exercises. Skilled judgment was used in selection of appropriate interventions. Provided written instruction for home exercise program to facilitate proper performance and compliance. Correct performance of therapeutic exercises was facilitated with verbal, visual, and tactile cuing. Educated patient on rationale for performing exercises in regards to decreasing fatigue , including balance, and ROM and function . Patient education as noted. Self-Correction Management: 1: discussed that reduce back symptoms with TA activation suggests pt. may benefit from core strengthening Skilled Intervention: Skilled judgment in the selection of proper modification for activity of daily living/home management based on clinical presentation, deficits, and needs. Provided written instruction for activities of daily living techniques to facilitate proper performance and compliance. Reviewed patient specific diagnosis in relation to activities of daily living/home management. Activity progression based on professional judgement. Moderate verbal cues for maintaining neutral spine alignment. Provided written instruction for home program to facilitate proper performance and compliance. Correct performance of home program was facilitated with verbal, visual, and tactile cueing. Billing Therapeutic Exercise Treatment Minutes: 35 Self-Care/Home Management Treatment Minutes: 5 Skilled Treatment Time Minutes (timed and untimed codes): 40 Total Session Time (minutes): 40 Session Start Time : 1115 Session Stop Time : 1155 Liseth Alanis, [facility]07-17-2024 History of Present illness Narrative* Liseth Alanis, PT - 03/20/2024 12:12 PM EDT Episode Visit Count: 7 Therapist That Will Accept/Oversee The Plan Of Care: Liseth Alanis Start of Care Date: 01/24/24 Onset Date: 01/23/21 Plan of Care Certification Date: 03/13/24 Next Certification Due Date: 05/08/24 REHABILITATION AND SPORTS THERAPY PHYSICAL THERAPY TREATMENT NOTE ASSESSMENT: Mary Alice Ga tolerated the session with fatigue and increased symptoms. She demonstrated difficulty with correctly R trunk shift due to increased pain. Pt. Demonstrates LLE weakness and is apprehensive to push off with side stepping. The patient will continue to benefit from ongoing skilled physical therapy to progress toward set goals. PLAN FOR NEXT VISIT: SUBJECTIVE: Pt. states that her joints are creaking today. Pain: Pain Pain Level: (doesn't rate) Pain Location: Leg - Right, Leg - Left Additional Pain Information : Location 2 Pain Level 2: 0 (doesn't rate) Pain Location 2: Back Post Treatment Pain Post Treatment Pain Level: No Change OBJECTIVE MEASURES WITH LEVEL OF FUNCTION: TREATMENT: Therapeutic Exercise: 1: seated L ankle pumps 1x20 2: seated LAQ 1x8 each side 3x12 each side 3: sit <> stand 9 reps 1set with BUE and 2nd set 9 with x1 UE support 4: step ups fwd 8 step x 2 UE support 2x12 each side (much difficulty with LLE lead) Skilled Intervention: Patient was educated in proper exercise technique and purpose for exercises. Skilled judgment was used in selection of appropriate interventions. Correct performance of therapeutic exercises was facilitated with verbal, visual, and tactile cuing. Neuromuscular Re-Education: 1: side stepping 20' 6x to the R and L with SC - max visual and verbal cues to correct R trunk shift at the hips and shoulders - cues to not drag the LLE Skilled Intervention: Skilled judgment used to assess appropriate program for balance and coordination activity. Education in proprioceptive/kinesthetic awareness during dynamic activities. Ensured patient safety with use of // bars and gait belt. Billing Therapeutic Exercise Treatment Minutes: 30 Neuromuscular Re-Education Treatment Minutes: 10 Skilled Treatment Time Minutes (timed and untimed codes): 40 Total Session Time (minutes): 40 Session Start Time : 1200 Session Stop Time : 1240 Liseth Alanis PT documented in this encounterGal[facility]07-[facility]24 NoteHNO ID: [id number] Author: LISETH ALANIS PT Service: ? Author Type: Physical Therapist Type: Progress Notes Filed: 03/20/2024 12:45 Note Text: Episode Visit Count: 7 Therapist That Will Accept/Oversee The Plan Of Care: Liseth Alanis Start of Care Date: 01/24/24 Onset Date: 01/23/21 Plan of Care Certification Date: 03/13/24 Next Certification Due Date: 05/08/24 REHABILITATION AND SPORTS THERAPY PHYSICAL THERAPY TREATMENT NOTE ASSESSMENT: Mary Alice Ga tolerated the session with fatigue and increased symptoms. She demonstrated difficulty with correctly R trunk shift due to increased pain. Pt. Demonstrates LLE weakness and is apprehensive to push off with side stepping. The patient will continue to benefit from ongoing skilled physical therapy to progress toward set goals. PLAN FOR NEXT VISIT: SUBJECTIVE: Pt. states that her joints are creaking today. Pain: Pain Pain Level: (doesn't rate) Pain Location: Leg - Right, Leg - Left Additional Pain Information : Location 2 Pain Level 2: 0 (doesn't rate) Pain Location 2: Back Post Treatment Pain Post Treatment Pain Level: No Change OBJECTIVE MEASURES WITH LEVEL OF FUNCTION: TREATMENT: Therapeutic Exercise: 1: seated L ankle pumps 1x20 2: seated LAQ 1x8 each side 3x12 each side 3: sit <> stand 9 reps 1set with BUE and 2nd set 9 with x1 UE support 4: step ups fwd 8 step x 2 UE support 2x12 each side (much difficulty with LLE lead) Skilled Intervention: Patient was educated in proper exercise technique and purpose for exercises. Skilled judgment was used in selection of appropriate interventions. Correct performance of therapeutic exercises was facilitated with verbal, visual, and tactile cuing. Neuromuscular Re-Education: 1: side stepping 20' 6x to the R and L with SC - max visual and verbal cues to correct R trunk shift at the hips and shoulders - cues to not drag the LLE Skilled Intervention: Skilled judgment used to assess appropriate program for balance and coordination activity. Education in proprioceptive/kinesthetic awareness during dynamic activities. Ensured patient safety with use of // bars and gait belt. Billing Therapeutic Exercise Treatment Minutes: 30 Neuromuscular Re-Education Treatment Minutes: 10 Skilled Treatment Time Minutes (timed and untimed codes): 40 Total Session Time (minutes): 40 Session Start Time : 1200 Session Stop Time : 1240 Liseth Alan[facility], [facility]07-[facility] History of Present illness Narrative* Amanda Soto, PT - 03/19/2024 9:59 AM EDT Episode Visit Count: 3 Medicare visits current year: 3 WOUND Therapist That Will Accept/Oversee The Plan Of Care: Liseth Alanis Start of Care Date: 01/24/24 Onset Date: 01/23/21 Plan of Care Certification Date: 03/13/24 Next Certification Due Date: 05/08/24 Patient Identified by Name and Date of : Yes [facility] REHABILITATION AND SPORTS THERAPY PHYSICAL THERAPY WOUND TREATMENT NOTE ASSESSMENT: patient tolerated the compression dressing well. Heavy drainage noted on removal but nostrike-through. No elif-wound maceration noted. The medial wound area has more epithelial migration, resulting in near bridging of select areas. Increase ability to mechanically debridement, especially along the wound periphery. The lateral wound has slightly less raised tissue in the center of thewound. However, more fibrotic tissue is noted than medially. Good debridement efforts this date, removing the majority of the necrotic tissue. Continued use of the compression dressing is warranted due to improvement. PLAN FOR NEXT VISIT: continue with active wound care, serial use of compression dressings--- will have to hold compression dressing on the due to US appt the SUBJECTIVE: Patient states the dressing was tight for the first 24-48 hours, and then did well until the last 1-2 days where she is getting tingling/sharp pains in the wounds. Pain Tool: Verbal (Numeric Rating or Visual Analog Scale) Pain Level: 4 Pain Location: Leg-Right (laterally 4/10, medially 2/10) Description: Sore, Aching Duration: Continuous Intervention/Comfort measure: Medication, Reposition, Relaxation, Distractions, Education, Emotional Support/Reassurance, Positioning, Other: See comment (compression and elevation) Response To Pain Intervention: burning/stingin-6/10 medial and laterally OBJECTIVE: Patient presents for follow-up wound care treatment. The compression dressing is intact and in good position. Gait is labored due to hip issues, shifted spine, and some pain from the RIGHTLE wounds. WOUND STATUS: Small anterior satellite wound: 0.4 cm l x 0.5 cm w x 0.2 cm deep. Marbled base 40% fibrotic, 60% granular Wound 02/29/24 1600 Venous Ulcer Calf Distal;Right;Lateral (Active) Assessments 03/19/2024 9:00 AM Site Assessment Red;Yellow;Arroyo;Sloughing;Fibrinous Elif-Wound Assessment Edematous;Hyperpigmented;Moist Wound Length (cm) 4.5 cm Wound Width (cm) 5 cm Wound Surface Area (cm^2) 22.5 cm^2 Wound Depth (cm) 0.2 cm (along wound perimeter. Minor raised centrally) Wound Volume (cm^3) 4.5 cm^3 Wound Healing % 12 Drainage Description Serosanguineous Drainage Amount Large Odor None Elif-Wound Treatment Vaseline;Zinc Oxide Treatments PT Debridement;Cleansed;Mechanical Debridement;PT Mist Therapy;PT Compression Dressing Changed Changed State of Healing Early/partial granulation Wound Bed Granulation (%) 70 % Wound Bed Slough (%) 30 % Non-staged Wound Description Partial thickness No associated orders. Wound 02/29/24 1600 Venous Ulcer Calf Distal;Right;Medial (Active) Assessments 03/19/2024 9:00 AM Site Assessment Red;Yellow;[place]o;Epithelialization Elif-Wound Assessment Edematous;Fragile;Hyperpigmented;Moist Shape irregular, being broken into smaller segments due to epithelial bridging Wound Length (cm) 7 cm Wound Width (cm) 4.5 cm Wound Surface Area (cm^2) 31.5 cm^2 Wound Depth (cm) 0.1 cm Wound Volume (cm^3) 3.15 cm^3 Wound Healing % 52 Drainage Description Serosanguineous Drainage Amount Large Odor None Elif-Wound Treatment Vaseline;Zinc Oxide Treatments PT Debridement;Cleansed;Mechanical Debridement;PT Mist Therapy;PT Compression Dressing Changed Changed State of Healing Early/partial granulation Wound Bed Granulation (%) 35 % Wound Bed Epithelium (%) 35 % Wound Bed Slough (%) 30 % Non-staged Wound Description Partial thickness No associated orders. TREATMENT: Conservative Sharp Debridement <20cm (03850): 3 mm curette used to selectively remove slough andreduce fibrotic tissue on all of the wounds as able/tolerated Skilled interventions: -Knowledge of tissue anatomy and wound care -Skilled judgment was provided after wound assessment in selection of appropriate interventions. -Skilled hands-on technique for active wound care/sharp debridement with appropriate instruments todebride/remove devitalized and/or necrotic tissue to promote wound healing. -Assessment of pain tolerance throughout the session, use of Topical lidocaine prn -<20cm2 nonviable tissue removed Nonselective Debridement (59154): The compression dressing was removed. RIGHT LE cleansed with warmsoapy water with Chlorhexidine. Mechanical debridement via towel and gauze swiping to remove loose slough on the wound beds, remove skin scales and accumulated drainage elif-wound, and reduce elif-wound ointment residue. Post care, wounds rinsed with NS and patted dry. Skilled interventions: -Skilled knowledge of wound care and skilled application of knowledge for optimal wound healing environment and preventing/ minimizing adverse side effects. -Skilled education on rationale for dressing choice for reinforcement and improved compliance at home. -Skilled judgement and knowledge for optimization of wound care and skin integrity. -Skilled gentle cleansing and mechanical debridement to remove loose non-viable tissue, reduce bio-burden and promote improved global skin integrity -Dressing management/application: Vaseline applied to the global intact skin of the RIGHT LE. Zinc oxide to the elif-wound of all wounds. Scant triple antibiotic ointment to the wound beds + Promogran + Acticoat + Compression dressing as below. Modalities: Noncontact Ultrasound MIST: 14 min total to the RIGHT LE wounds (7 min total to each wound) Skilled interventions: -Proper administration and selection of modality based on clinical presentation, deficits, and needs -Patient response monitored throughout treatment Compression Therapy (Multilayer Venous Wound Compression System) (95768): Skilled interventions: -Skilled knowledge of wound care and skilled application of knowledge for optimal wound healing environment and preventing/minimizing adverse side effects. -Skilled education on rationale for dressing choice for reinforcement and improved compliance at home. -Compression dressing Profore Lite (20-30mmHg) applied to Right LE with ABD pads x 2 between the layers for added drainage support. -Toes are warm and pink before and post boot application. -Reinforced with the patient that if she exhibits a change in color to the extremity, change in temperature, increased pain, or the dressing becomes wet, the patient was instructed to remove the dressing. S&S of intolerance reviewed. If patient needs to remove the dressing, she was instructed to apply dressings at home per her usual. Patient voices understanding with intent to comply. Post Treatment/Symptom(s): See above Adverse event? No Billing: Noncontact Ultrasound Mist (17764): no charge Selective Sharp Debridement <20cm (09703): 1 unit Nonselective debridement (67404): no charge Multi-Layer Venous Wound Compression System (72835): 1 unit (untimed) Session Start Time : 837 Session Stop Time : 940 Total Time: 63 minutes Amanda Soto PT [facility] NoteHNO ID: [id number] Author: LISETH ALANIS PT Service: ? Author Type: Physical Therapist Type: Progress Notes Filed: 03/13/2024 13:32 Note Text: Episode Visit Count: 6 Therapist That Will Accept/Oversee The Plan Of Care: Liseth Alanis Start of Care Date: 01/24/24 Onset Date: 01/23/21 Plan of Care Certification Date: 03/13/24 Next Certification Due Date: 05/08/24 REHABILITATION AND SPORTS THERAPY PHYSICAL THERAPY PROGRESS REPORT PLAN OF CARE UPDATE: Assessment: Mary Alice Ga demonstrates significant improvement in walking . She has progressed toward goals. Patient continues to present with impairments in ADL's, balance, gait, independence in exercise, joint mobility, overall function, patient reported outcome measures, posture, range of motion, soft tissue healing, strength, symptom management, and tissue tenderness that interfere with walking in the community, walking in the house . Current prognosis is Good due to: positive past response to therapy . She will benefit from continued skilled therapy services to meet the updated goals for this plan of care as noted below. Goals for Episode of Care: created on 01/24/24 through 02/28/24 Goals updated on 03/13/2024 and 05/08/24 Patient will report no falls. -- MET Improve score on Timed Up and Go Test to 14 or less seconds to reflect decreased fall risk. -- PROGRESSING Improve score on 30 Second Chair Stand to x10 or more repetitions to reflect decreased fall risk. -- PROGRESSING [place] in home exercise program including cardiovascular exercise. -- PROGRESSING Complete 6 MWT x1545 ft or more with or without SC. -- PROGRESSING Patient Goals: amb without an AD from handicap spot to front door without LOB -- PROGRESSING Patient Goals: amb without an AD from handicap spot to front door without LOB Planned Interventions, Frequency, and Duration: 1x/week, 8 weeks Total Number of Visits Planned: 8 Patient to be seen for Gait Training (79179), Self-longterm management (55099), Therapeutic activities (72777), Manual therapy (63349), Neuromuscular re-education (00960), Therapeutic exercise (72223) PLAN FOR NEXT VISIT: work on step ups, uneven surfaces SUBJECTIVE: Pt. states that she did a lot of lifting and now she is paying for it. Lumbar flexion has been helpful, the more she does it the better she feels. Pt. will see physician next mo for her L hip-- she mentions possible L KARINA . Denies falls since last visit. She is seeing PT in [place] for her wounds. She is having the most difficulty with amb on uneven surface and negociating curbs. The more she moves the better she feels.. Patient Goals: amb without an AD from handicap spot to front door without LOB Functional Limitations: walking in the community, walking in the house Pain: Pain Pain Level: 6 Pain Location: Leg - Right, Leg - Left Additional Pain Information : Location 2 Pain Level 2: 6 Pain Location 2: Back Post Treatment Pain Post Treatment Pain Level: Worse Post Treatment Pain Location: Leg - Right Post Treatment Pain Description: Tingling PROMIS Scales 03/13/2024 02/28/2024 02/13/2024 Higher is Better Phys Func - Score 33 (moderate dysfunction) Phys Func - Percentile 4 Self-Eff Symptom - Score 35 (Low) 41 (Average) Self-Eff Symptom - Percentile 7 18 T-scores: mean of general population = 50. 5 points is clinically meaningfully difference Percentiles provide an indication of how the patient's score ranks in relation to the general population. Higher percentile rankings indicate better function/quality of life. 50th percentile is the average of the general population and indicates half of respondents had a worse score. OBJECTIVE MEASURES WITH LEVEL OF FUNCTION: Gait Gait: Modified Independent Gait Distance (feet): 810 Gait Device: Cane Gait Deviations: General Deviations General Deviations/Observations: Trunk Control Decreased, Wide base of support, Lateral sway increased, Flexed trunk posture, Non-functional gait speed, Shuffling Gait, Step length decreased, Difficulty changing direction/turning Functional Performance Test Results Assistive Device: Cane 30 Second Chair Stand Test: 9 reps 6 Minute Walk Test (ft): 810 ft 6 Minute Walk Test Gait Speed (calculated): 0.69 m/s Timed Up and Go (sec): 20 sec Timed Up and Go - Condition 2 (sec) : 16 TREATMENT: Therapeutic Exercise: 1: 30 sec sit <> stand test 2: SciFit stepper x 5 min 1:1 throughout. level 2 seat 13 collected subjective Skilled Intervention: Patient was educated in proper exercise technique and purpose for exercises. Skilled judgment was used in selection of appropriate interventions. Additional time necessary for assessing progress toward goals due to PN today. Educated patient on rationale for performing exercises in regards to decreasing fatigue , including balance, increase ease of ADL, and ROM and function . Patient education as noted. (more content not included)...[facility]07-10-[facility] History of Present illness Narrative* O'Carlos, Liseth, PT - 03/13/2024 12:49 PM EDT Images from the original note were not included. Episode Visit Count: 6 Therapist That Will Accept/Oversee The Plan Of Care: Liseth Benny Start of Care Date: 01/24/24 Onset Date: 01/23/21 Plan of Care Certification Date: 03/13/24 Next Certification Due Date: 05/08/24 REHABILITATION AND SPORTS THERAPY PHYSICAL THERAPY PROGRESS REPORT PLAN OF CARE UPDATE: Assessment: Mary Alice Ga demonstrates significant improvement in walking . She has progressed toward goals. Patient continues to present with impairments in ADL's, balance, gait, independence in exercise,joint mobility, overall function, patient reported outcome measures, posture, range of motion, softtissue healing, strength, symptom management, and tissue tenderness that interfere with walking in the community, walking in the house . Current prognosis is Good due to: positive past response to therapy . She will benefit from continued skilled therapy services to meet the updated goals for this plan of care as noted below. Goals for Episode of Care: created on 01/24/24 through 02/28/24 Goals updated on 03/13/2024 and 05/08/24 Patient will report no falls. -- MET Improve score on Timed Up and Go Test to 14 or less seconds to reflect decreased fall risk. -- PROGRESSING Improve score on 30 Second Chair Stand to x10 or more repetitions to reflect decreased fall risk. -- PROGRESSING [place] in home exercise program including cardiovascular exercise. -- PROGRESSING Complete 6 MWT x1545 ft or more with or without SC. -- PROGRESSING Patient Goals: amb without an AD from handicap spot to front door without LOB -- PROGRESSING Patient Goals: amb without an AD from handicap spot to front door without LOB Planned Interventions, Frequency, and Duration: 1x/week, 8 weeks Total Number of Visits Planned: 8 Patient to be seen for Gait Training (75139), Self-longterm management (98149), Therapeutic activities (10611), Manual therapy (14975), Neuromuscular re- education (44540), Therapeutic exercise (87622) PLAN FOR NEXT VISIT: work on step ups, uneven surfaces SUBJECTIVE: Pt. states that she did a lot of lifting and now she is paying for it. Lumbar flexionhas been helpful, the more she does it the better she feels. Pt. will see physician next mo for herL hip-- she mentions possible L KARINA . Denies falls since last visit. [facility] [place] [facility] She is having the most difficulty with amb on uneven surface and negociating curbs. The more she moves the better she feels.. Patient Goals: amb without an AD from handicap spot to front door without LOB Functional Limitations: walking in the community, walking in the house Pain: Pain Pain Level: 6 Pain Location: Leg - Right, Leg - Left Additional Pain Information : Location 2 Pain Level 2: 6 Pain Location 2: Back Post Treatment Pain Post Treatment Pain Level: Worse Post Treatment Pain Location: Leg - Right Post Treatment Pain Description: Tingling PROMIS Scales 03/13/2024 02/28/2024 02/13/2024 Higher is Better Phys Func - Score 33 (moderate dysfunction) Phys Func - Percentile 4 Self-Eff Symptom - Score 35 (Low) 41 (Average) Self-Eff Symptom - Percentile 7 18 T-scores: mean of general population = 50. 5 points is clinically meaningfully difference Percentiles provide an indication of how the patient's score ranks in relation to the general population. Higher percentile rankings indicate better function/quality of life. 50th percentile is the average of the general population and indicates half of respondents had a worse score. OBJECTIVE MEASURES WITH LEVEL OF FUNCTION: Gait Gait: Modified Independent Gait Distance (feet): 810 Gait Device: Cane Gait Deviations: General Deviations General Deviations/Observations: Trunk Control Decreased, Wide base of support, Lateral sway increased, Flexed trunk posture, Non-functional gait speed, Shuffling Gait, Step length decreased, Difficulty changing direction/turning Functional Performance Test Results Assistive Device: Cane 30 Second Chair Stand Test: 9 reps 6 Minute Walk Test (ft): 810 ft 6 Minute Walk Test Gait Speed (calculated): 0.69 m/s Timed Up and Go (sec): 20 sec Timed Up and Go - Condition 2 (sec) : 16 TREATMENT: Therapeutic Exercise: 1: 30 sec sit <> stand test 2: SciFit stepper x 5 min 1:1 throughout. level 2 seat 13 collected subjective Skilled Intervention: Patient was educated in proper exercise technique and purpose for exercises. Skilled judgment was used in selection of appropriate interventions. Additional time necessary for assessing progress toward goals due to PN today. Educated patient on rationale for performing exercises in regards to decreasing fatigue , includingbalance, increase ease of ADL, and ROM and function . Patient education as noted. Neuromuscular Re-Education: 1: TUG test 2x with SC Skilled Intervention: Skilled judgment used to assess appropriate program for balance and coordination activity. Education in proprioceptive/kinesthetic awareness during dynamic activities. Ensured patient safety with use of gait belt and SC. Patient education as noted. Gait Training: Distance (feet): 100 + 810 Gait Cues: SC - pt. unable to use in LUE, complete turns slowly. less difficulty with pivoting overthe LLE Assistive Device: SC Assist Level: SBA, CGA with turns Skilled Intervention: Facilitated proper gait cycle with the use of verbal, visual, and tactile cues for correction of gait deviations identified in the objective section above. Gait belt utilized during session for safety. Self-Correction Management: 1: strongly encouraged use of SC at all times - espeically on uneven surfaces 2: discussed how RLE wound affects her progress - encouraged pt. that she is making slow progress 3: discussed that PT preferes that pt. amb safely over use of SC in her L hand -- discussed reason SC would be used in the opposite hand but the main goal is avoiding falls Skilled Intervention: Skilled judgment in the selection of proper modification for activity of daily living/home management based on clinical presentation, deficits, and needs. Reviewed patient specific diagnosis in relation to activities of daily living/home management. Activity progression based on professional judgement. Reviewed and educated patient on additions/changes for home program as noted above with an (*). Billing Therapeutic Exercise Treatment Minutes: 8 Neuromuscular Re-Education Treatment Minutes: 7 Self-Care/Home Management Treatment Minutes: 10 Gait Training Treatment Minutes: 15 Skilled Treatment Time Minutes (timed and untimed codes): 40 Total Session Time (minutes): 40 Session Start Time : 1245 Session Stop Time : 1325 Liseth Alanis PT [facility] History of Present illness Narrative* Amanda Soto PT - 03/12/2024 10:28 PM EDT Episode Visit Count: 2 Medicare visits current year: 2 WOUND CARE Therapist That Will Accept/Oversee The Plan Of Care: Amanda Soto Start of Care Date: 02/29/24 Onset Date: 02/27/24 Plan of Care Certification Date: 02/29/24 (WOUND CARE) Next Certification Due Date: 05/29/24 (WOUND CARE) Patient Identified by Name and Date of : Yes [facility] REHABILITATION AND SPORTS THERAPY PHYSICAL THERAPY WOUND TREATMENT NOTE ASSESSMENT: patient's medial wound area with increased granular tissue and improved strength of theepithelial bridge down the center. Her lateral wound without significant size change but increased granular tissue is noted. Slightly raised. Trial this date of compression dressing to reduce swelling and promote wound healing. Patient tolerated the session well. Will need further wound care sessions to promote improved skin integrity, reduce edema and promote healing. PLAN FOR NEXT VISIT: assess tolerance and wound status with trial of compression dressing. Continue with active wound care to reduce nonviable tissue and promote healing. SUBJECTIVE: Patient states her week out of town was fine. Feels like the medial area is looking better. Was fitfor her [place] wraps, but has not obtained yet. Pain Tool: Verbal (Numeric Rating or Visual Analog Scale) Pain Level: 5 Pain Location: Leg-Right Description: Sore, Burning Duration: Continuous Intervention/Comfort measure: Medication, Reposition, Relaxation, Distractions, Education, Emotional Support/Reassurance, Positioning, Other: See comment (compression and elevation) Response To Pain Intervention: patient reports she feels a little throbbing, 4/10 OBJECTIVE: Patient presents for follow-up wound care treatment. Dressings from home intact with ACEwrap intact. Gait labored and slow with c/o increased back pain from a lot of lifting over the weekend. WOUND STATUS: Anterior LE (above and lateral to the medial wound): 0.5 cm l x 0.5 cm w x 0.1 cm deep. 50% yellow slough Wound 02/29/24 1600 Venous Ulcer Calf Distal;Right;Lateral (Active) Assessments 03/12/2024 12:00 PM Site Assessment Red;Yellow;Sloughing;Fibrinous Elif-Wound Assessment Edematous;Fragile;Hyperpigmented;Moist Wound Length (cm) 4.8 cm Wound Width (cm) 4.9 cm Wound Surface Area (cm^2) 23.52 cm^2 Wound Depth (cm) 0.2 cm (on wound perimeter, center of the wound raised) Wound Volume (cm^3) 4.704 cm^3 Wound Healing % 8 Drainage Description Serosanguineous Drainage Amount Moderate Odor None Elif-Wound Treatment Vaseline;Zinc Oxide Treatments PT Debridement;PT Mist Therapy;Cleansed;Mechanical Debridement;PT Compression Dressing Other (Comment) (see note) Dressing Changed Changed State of Healing Non-healing;Early/partial granulation Wound Bed Granulation (%) 60 % Wound Bed Slough (%) 40 % Non-staged Wound Description Partial thickness No associated orders. Wound 02/29/24 1600 Venous Ulcer Calf Distal;Right;Medial (Active) Assessments 03/12/2024 12:00 PM Site Assessment Red;Yellow;Fragile Elif-Wound Assessment Edematous;Fragile;Hyperpigmented;Moist Wound Length (cm) 7 cm Wound Width (cm) 4.8 cm Wound Surface Area (cm^2) 33.6 cm^2 Wound Depth (cm) 0.1 cm Wound Volume (cm^3) 3.36 cm^3 Wound Healing % 49 Drainage Description Serosanguineous Drainage Amount Moderate Odor None Elif-Wound Treatment Vaseline;Zinc Oxide Treatments PT Debridement;PT Mist Therapy;Cleansed;Mechanical Debridement;PT Compression Dressing Other (Comment) (see note) Dressing Changed Changed State of Healing Early/partial granulation Wound Bed Granulation (%) 30 % Wound Bed Epithelium (%) 30 % Wound Bed Slough (%) 30 % Non-staged Wound Description Partial thickness No associated orders. TREATMENT: Conservative Sharp Debridement <20cm (68107): 3 mm curette used to selectively remove slough on all of the wounds as able Skilled interventions: -Knowledge of tissue anatomy and wound care -Skilled judgment was provided after wound assessment in selection of appropriate interventions. -Skilled hands-on technique for active wound care/ sharp debridement with appropriate instruments to debride/ remove devitalized and/or necrotic tissue to promote wound healing. -Assessment of pain tolerance throughout the session, use of Topical lidocaine prn -<20cm2 nonviable tissue removed Nonselective Debridement (88892): home dressings removed. RIGHT LE cleansed with warm soapy water with Chlorhexidine. Mechanical debridement via towel and gauze swiping to remove loose slough on the wound beds, remove skin scales and accumulated drainage elif-wound, and reduce elif-wound ointment residue. Post care, wounds rinsed with NS and patted dry. Skilled interventions: -Skilled knowledge of wound care and skilled application of knowledge for optimal wound healing environment and preventing/ minimizing adverse side effects. -Skilled education on rationale for dressing choice for reinforcement and improved compliance at home. -Skilled judgement and knowledge for optimization of wound care and skin integrity. -Skilled gentle cleansing and mechanical debridement to remove loose non-viable tissue, reduce bio-burden and promote improved global skin integrity -Dressing management/ application: Vaseline applied to the global intact skin of the RIGHT LE. Zincoxide to the elif-wound of all wounds. NS moistened fenestrated Endoform to the wound beds + Acticoat + Compression dressing as below. Modalities: Noncontact Ultrasound MIST: 12 min total to the RIGHT LE wounds (6 min total to each wound) Skilled interventions: -Proper administration and selection of modality based on clinical presentation, deficits, and needs -Patient response monitored throughout treatment Compression Therapy (Multilayer Venous Wound Compression System) (95816): Skilled interventions: -Skilled knowledge of wound care and skilled application of knowledge for optimal wound healing environment and preventing/minimizing adverse side effects. -Skilled education on rationale for dressing choice for reinforcement and improved compliance at home. -Compression dressing Profore Lite (20-30mmHg) applied to Right LE with DryMax and ABD pad between the layers for added drainage support. -Toes are warm and pink before and post boot application. -Educated the patient that if she exhibits a change in color to the extremity, change in temperature, increased pain, or the dressing becomes wet, the patient was instructed to remove the dressing. S&S of intolerance educated. If patient needs to remove the dressing, she was instructed to applydressings at home per her usual. Patient voices understanding with intent to comply. Post Treatment/Symptom(s): See above Adverse event? No Billing: Noncontact Ultrasound Mist (22645): no charge Selective Sharp Debridement <20cm (90410): 1 unit Nonselective debridement (63469): no charge Multi-Layer Venous Wound Compression System (67324): 1 unit (untimed) Session Start Time : 1153 Session Stop Time : 1255 Total Time: 62 minutes Amanda Soto PT documented [facility]06[facility] History of Present illness Narrative* Amanda Soto, PT - 02/29/2024 4:00 PM EDT Images from the original note were not included. Episode Visit Count: 1 Medicare visits current year: 1 Therapist That Will Accept/Oversee The Plan Of Care: Amanda Soto Start of Care Date: 02/29/24 Onset Date: 02/27/24 Plan of Care Certification Date: 02/29/24 (WOUND CARE) Next Certification Due Date: 05/29/24 (WOUND CARE) Patient Identified by Name and Date of : Yes [facility] REHABILITATION AND SPORTS THERAPY PHYSICAL THERAPY WOUND EVALUATION PLAN OF CARE: Assessment: Mary Alice Ga presents with the chief complaint of non-healing ulcers of her RIGHT LE. She presents with impairments of disrupted skin integrity, pain, drainage, edema and increasedcare needs. She may benefit from skilled therapy services to address the wounds and promote healing. Prognosis: Fair Fair due to: multiple co- morbidities, chronic nature of impairments Problems/Barriers to Healing: Pain, Medical condition/status interfering with wound healing PVD Goals for Episode of Care: created on 02/29/24 through 08/27/24 (WOUND CARE) Debride 50% of non-viable tissue from wounds on the RIGHT LE Eliminate all nonviable tissue from wounds on the RIGHT LE Decrease overall wound surface area (length x width) by 50% for wounds on the RIGHT LE Achieve full closure the anterior satellite wound Achieve full closure of the wound of the Medial RIGHT LE Achieve full closure of the wound of the Lateral RIGHT LE Eliminate wound drainage Eliminate pain Patient voices understanding of vermin exterminator edema management via compression garments, leg elevation,and exercise. Planned Interventions, Frequency, and Duration: Current Frequency: 1x/week (WOUND CARE) Duration: (6 months: WOUND CARE) Total Number of Visits Planned: 24 (WOUND CARE) Planned Treatment Interventions: Self-longterm management (47679), Patient/Family/Caregiver Education, Wound Selective debridement <20cm, Selective debridement >20cm, Nonselective debridement, Noncontact Ultrasound Mist, Compression Therapy (dressing) PLAN FOR NEXT VISIT: wound care: serial debridements, compression dressing Patient demonstrates good understanding of plan of care and treatment. The above goals and plan of care were discussed and agreed upon by patient/family. SUBJECTIVE: Mary Alice Ga is a 73 year old female seen today for non- healing wounds of her RIGHT LE. She reports the lateral wound is about 1 year old with insidious onset. Started out very small and has gotten progressively larger. The medial wound area is following a vascular ablation procedure a few months ago. Both wounds have progressively worsened. Pain Tool: Verbal (Numeric Rating or Visual Analog Scale) Pain Level: 6 (9/10 at night) Pain Location: Leg-Right (stinging.) Description: Burning (stinging) Duration: Continuous Intervention/Comfort measure: Medication (takes 1/2 Tramadol for night. Changes dressings as neededfor increased pain.) Response To Pain Intervention: can get some relief with medications. Functional Limitations: increased self care, pain, and drainage which limits tolerance to ADLs and IADLs. Home Environment Patient Lives With: Spouse Assistance Available: Other: See Comment Comments: assists spouse Prior Functional Level: Within Functional Limits Prior Wound Care: Other: See Comment ([facility], [facility]ology center for a Mohs procedureof the upper lower leg and lower leg wounds. Ablation in [facility]. Dr Yin in [place].) Patient Goals: get the wounds to close Intake Information: Prescription present. Previous treatment: Outpatient wound center, Dermatology Course of treatment: pt reports wounds have worsened. Only using ANTONIO wrap for compression Falls Assessment:: No positive results upon screening. Relevant medical history: see flow sheet. Venous insufficiency most relevant PMH. PROMIS Scales 01/24/2024 02/13/2024 02/28/2024 Higher is Better Phys Func - Score 37 (moderate dysfunction) 33 (moderate dysfunction) Phys Func - Percentile 10 4 Self-Eff Symptom - Score 41 (Average) Self-Eff Symptom - Percentile 18 T-scores: mean of general population = 50. 5 points is clinically meaningfully difference Percentiles provide an indication of how the patient's score ranks in relation to the general population. Higher percentile rankings indicate better function/quality of life. 50th percentile is the average of the general population and indicates half of respondents had a worse score. T-scores: mean of general population = 50. 5 points is clinically meaningfully difference Percentiles provide an indication of how the patient's score ranks in relation to the general population. Higher percentile rankings indicate better function/quality of life. 50th percentile is the average of the general population and indicates half of respondents had a worse score. OBJECTIVE MEASURES WITH LEVEL OF FUNCTION: Integumentary Status Edema Assessment: Bilateral Lower Extremity Edema Edema comment: R >> L Skin Abnormality: Wound, Deep Creases, Fibrosis Wound Location: R Lower Extremity Deep Creases Location: R Lower Extremity Fibrosis Location: R Lower Extremity, L Lower Extremity Skin abnormalities comment: changes of skin B LEs consistent with venous insufficiency Sensation Sensation: Right Lower Extremity Right Lower Extremity Sensation: Light Touch RLE Light Touch: Intact Circulation Pulses: Right Dorsalis Pedis, Right Posterior Tibial Right Dorsalis Pedis Pulse: 3+ - Normal Right Posterier Tibial Pulse: 2+ - Palpable but Diminished Capillary Refill: Right Lower Extremity Right Lower Extremity Capillary Refill: Intact WOUND ASSESSMENT Small anterior satellite wound: 0.5 cm l x 0.7 cm w x 0.1 100% yellow slough Wound 02/29/24 1600 Venous Ulcer Calf Distal;Right;Lateral (Active) Assessments 02/29/2024 4:00 PM Site Assessment Yellow;Arroyo;Red;Sloughing;Fibrinous Elif-Wound Assessment Edematous;Fragile;Hyperpigmented;Moist Shape horizontal oval Wound Length (cm) 4.4 cm Wound Width (cm) 5.8 cm Wound Surface Area (cm^2) 25.52 cm^2 Wound Depth (cm) 0.2 cm (along edges, center of wound slightly raised) Wound Volume (cm^3) 5.104 cm^3 Drainage Description Serosanguineous Drainage Amount Moderate Odor None Elif-Wound Treatment Zinc Oxide;Vaseline Treatments PT Debridement;Cleansed;Mechanical Debridement;PT Mist Therapy Dressing Alginate;Abdominal Dressing;Kerlix Roll;Tubigrip Dressing Changed Changed State of Healing Non-healing;Early/partial granulation Wound Bed Granulation (%) 40 % Wound Bed Slough (%) 60 % Non-staged Wound Description Partial thickness No associated orders. Wound 02/29/24 1600 Venous Ulcer Calf Distal;Right;Medial (Active) Assessments 02/29/2024 4:00 PM Site Assessment Red;Yellow;Maceration;Sloughing;Fragile Elif-Wound Assessment Edematous;Fragile;Hyperpigmented;Macerated;Moist Shape circular with vertical epithelial in the center Wound Length (cm) 6.9 cm Wound Width (cm) 4.8 cm Wound Surface Area (cm^2) 33.12 cm^2 Wound Depth (cm) 0.2 cm Wound Volume (cm^3) 6.624 cm^3 Drainage Description Serosanguineous Drainage Amount Large Odor None Elif-Wound Treatment Zinc Oxide;Vaseline Treatments Cleansed;PT Debridement;Mechanical Debridement;PT Mist Therapy Dressing Alginate;Abdominal Dressing;Kerlix Roll Dressing Changed Changed State of Healing Early/partial granulation;Non-healing Wound Bed Granulation (%) 25 % Wound Bed Epithelium (%) 25 % Wound Bed Slough (%) 50 % Non-staged Wound Description Partial thickness No associated orders. Lymphedema Temperature To Touch: Normal Skin Changes: Deepend Skin Folds Body Systems Range of Motion: WFL Posture: Forward head, Rounded shoulders, Scoliosis Current Functional Mobility Gait: Independent Gait Device: None Gait Deviations: General Deviations General Deviations/Observations: Antalgic gait, Flexed trunk posture (leg length discrepancy, trunkshifted) Education Learning Preferences: Demonstration, Explanation, Performance Barriers: None Learning/Educational Needs: Discharge Plan, Disease Process, Plan of Care, Rehabilitation Techniques and Procedures, Skin/Wound Care Lymphedema & Wound Care Learning/Educational Needs: Edema Management, Importance of Compliance for Wound Healing, Positioning, Role of US Mist in Wound Healing, Venous Insufficiency Guidelines Education Provided: Yes, see treatment interventions for education provided Education Provided To: Patient Education Mode/Type: Demonstration, Explanation/Discussion, Performance Response to Education/Teach Back: Requires Review/Additional Education TREATMENT: Evaluation Conservative Sharp Debridement <20cm (61320): 3 mm curette used to selectively remove slough on the wounds, with emphasis on the wound periphery this date. Skilled interventions: -Knowledge of tissue anatomy and wound care -Skilled judgment was provided after wound assessment in selection of appropriate interventions. -Skilled hands-on technique for active wound care/ sharp debridement with appropriate instruments to debride/ remove devitalized and/or necrotic tissue to promote wound healing. -Assessment of pain tolerance throughout the session, use of Topical lidocaine prn -<20cm2 nonviable tissue removed Nonselective Debridement (12800): RIGHT LE cleansed with warm soapy water with Chlorhexidine. Mechanical debridement via towel and gauze swiping to remove loose slough on the wound beds and remove macerated tissue and accumulated drainage elif-wound. Scales elif-wound also removed as able. Post care, wounds rinsed with NS and patted dry. Skilled interventions: -Skilled knowledge of wound care and skilled application of knowledge for optimal wound healing environment and preventing/ minimizing adverse side effects. -Skilled education on rationale for dressing choice for reinforcement and improved compliance at home. -Skilled judgement and knowledge for optimization of wound care and skin integrity. -Skilled gentle cleansing and mechanical debridement to remove loose non-viable tissue, reduce bio-burden and promote improved global skin integrity -Dressing management/ application: Vaseline applied lightly to global intact skin of the RIGHT LE. Zinc oxide to the elif-wound of all wounds. Alginate applied + DryMax + ABD pads + Kerlix to secure.4 ANTONIO toes to above the ankle and 6 ANTONIO ankle to knee. Heavy discussion of venous insufficiency and imperative compression. Unable to initiate compression dressing this date as patient has an appt tomorrow for Zeeborow wraps. Patient will be out of town next week. Instructed to change dressings daily to every other day as needed for drainage management. Modalities: Noncontact Ultrasound MIST: 16 min total to the RIGHT LE wounds Skilled interventions: -Proper administration and selection of modality based on clinical presentation, deficits, and needs -Patient response monitored throughout treatment Post Treatment Pain/Symptoms: See above Adverse event? No Billing: Evaluation - Moderate Complexity (37377) Noncontact Ultrasound Mist (67339): no charge Selective Sharp Debridement <20cm (13150): 1 unit Nonselective debridement (41328): no charge Session Start Time : 1550 Session Stop Time : 1655 Total time: 65 minutes Amanda Soto PT [facility]* Patient Instructions* Gt Yin DO - 02/27/2024 9:25 AM EDT Vasculera- food supplement; vein health Farrow Wrap or Circaid stocking Plan is get ultrasound of veins and follow up May benefit from referral to [facility] [place]- Amanda Soto documented in this encounter[facility]24 NoteHNO ID: [id number] Author: GT YIN, DO Service: ? Author Type: Physician Type: Progress Notes Filed: 03/26/2024 13:56 Note Text: [facility] [place] DEPARTMENT OF VASCULAR SURGERY OUTPATIENT VISIT DATE February 27, 2024 OUTPATIENT VISIT TYPE CONSULTATION SERVICE DATE: 02/27/2024 SERVICE TIME: 8:31 AM PRIMARY CARE PHYSICIAN: Khanh Rodriguez MD REFERRING PROVIDER: No referring provider defined for this encounter. Consult requested for an opinion regarding the evaluation and treatment of the above. My final impression and recommendations will be communicated back to the requesting physician by way of the shared medical record or letter via US mail. CHIEF COMPLAINT: Patient presents with: New Patient History of Present Illness: Patient is a 73 year old White female presenting for consultation, evaluation and possible treatment of leg edema.bilateral edema and describes right greater than left. She has right lower extremity wounds for the past year. She has been treated at [facility] [place]. They recommend HBO to help with healing. She has history of AGSV EVLT and phlebectomy in 2014. She had reflux testing at [place] which demonstrated reflux and had ablation a few months ago and has had issue healing since the procedure. She wears compression stockings- knee high stockings. She currently has epifix in place with an compression dressing. 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 She stands for long periods of time during the day. 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 Has used compression pumps in the past- over the counter. Family history edema- father PAIN ASSESSMENT: PAIN EVALUATION No data found in the last 1 encounters. Obstetric History No data available Duration of Symptoms: Progressive PAST MEDICAL HISTORY Diagnosis Date Arthritis Cirrhosis (HCC) Cirrhosis (HCC) Edema Flexural atopic dermatitis Inflamed seborrheic keratosis Liver disease Multiple nevi PMH - PAST MEDICAL HISTORY OF 01/24/08 pancreatitis PMH - PAST MEDICAL HISTORY OF htn PMH - PAST MEDICAL HISTORY OF hx varicose veins PMH - PAST MEDICAL HISTORY OF 05/17/08 pulmonary embolus- postop left TKA Seborrheic keratoses Solar lentiginosis PAST SURGICAL HISTORY Procedure Laterality Date PAST SURGICAL HISTORY OF 1991 JULIETA/BSO for fibroids PAST SURGICAL HISTORY OF tonsillectomy PAST SURGICAL HISTORY OF 05/14/08 Left TKA PAST SURGICAL HISTORY OF 08/29/2011 R TKA SOCIAL HISTORY: Social History Tobacco Use Smoking status: Never Smokeless tobacco: Never Substance Use Topics Alcohol use: Yes Comment: 3 glasses of wine daily-quit 05/2016 Drug use: No FAMILY HISTORY Problem Relation Age of Onset None Mother Dementia Mother Diabetes Father Heart Father Melanoma Father Melanoma Brother MEDICATIONS: nadolol (CORGARD) 20 mg tablet TAKE ONE TABLET BY MOUTH EVERY DAY potassium chloride ER (K-DUR, KLOR-CON) 20 mEq tablet Take 20 mEq by mouth once daily. diclofenac sodium (VOLTAREN) 1 % topical gel Apply 2 g to affected area four times daily as needed. spironolactone (ALDACTONE) 50 mg tablet Take 1 tablet by mouth twice daily. furosemide (LASIX) 20 mg tablet Take 2 tablets by mouth twice daily. MILK THISTLE ORAL Take by mouth once daily. ibuprofen (MOTRIN) 200 mg tablet Take 400 mg by mouth three times daily. ALLERGIES: ALLERGIES Allergen Reactions Clarithromycin (Bul* Other: See Comments pancrititis Steroids [Betametha* Intolerance pancritis REVIEW of SYSTEMS: Constitutional: No weight loss, malaise or fevers. HEENT: Negative for frequent or significant headaches, No changes in hearing or vision, no nose bleeds or other nasal problems Respiratory: Negative for cough, wheezing, or shortness of breath Cardiovascular: Negative for chest pain and palpitations and Positive for leg swelling Gatrointestinal: Negative for blood in stools or black stools and Positive for abdominal discomfort and has hernia Genitourinary: No difficulty urination, nocturia >1 times per night or hematuria Musculoskeletal: Negative for muscle pain and Positive for back pain, joint pain, and muscle pain Endocrine: Positive for cold intolerance Hematology/Lymphatic: Negative for prolonged bleeding and Positive for bruises easily Neurologic: No history or headaches, syncope, paralysis, seizures or tremors Integumentary: Negative for rash and itching and Positive for lesions PHYSICAL EXAM: VITALS: There were no vitals taken for this visit. General: Alert, oriented, cooperative, healthy appearance Integumentary: Normal color, no rash, no lesions. HEENT: EOM, pupils equal, round and reactive. Cardiovascular: Pulse regular. Lungs: No chest deformities or chest wall tenderness. Abdomen: Not examined Extremities: Edema and Varicose veins Ulcers Neurological: AAOx3. Normal cognition and motor skills. Vascular: Dorsal (more content not included)...[facility] 02-27-2024 History of Present illness Narrative* Gt Yin Ellen, DO - 02/27/2024 8:31 AM EDT Images from the original note were not included. Heart, V[facility] Thor[facility] [place] DEPARTMENT OF VASCULAR SURGERY OUTPATIENT VISIT DATE February 27, 2024 OUTPATIENT VISIT TYPE CONSULTATION SERVICE DATE: 02/27/2024 SERVICE TIME: 8:31 AM PRIMARY CARE PHYSICIAN: Khanh Rodriguez MD REFERRING PROVIDER: No referring provider defined for this encounter. Consult requested for an opinion regarding the evaluation and treatment of the above. My final impression and recommendations will be communicated back to the requesting physician by way of the shared medical record or letter via US mail. CHIEF COMPLAINT: Patient presents with: New Patient History of Present Illness: Patient is a 73 year old White female presenting for consultation, evaluation and possible treatment of leg edema.bilateral edema and describes right greater than left. She has right lower extremity wounds for the past year. She has been treated at [facility] [place]. They recommend HBO to help with healing. She has history of AGSV EVLT and phlebectomy in 2014. She had reflux testing at [place] which demonstrated reflux and had ablation a few months ago and has had issue healing since the procedure. She wears compression stockings- knee high stockings. She currently has epifix in placewith an compression dressing. 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 She stands for long periods of timeduring the day. 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 Has used compression pumps in the past- over the counter. Family history edema- father PAIN ASSESSMENT: PAIN EVALUATION No data found in the last 1 encounters. Obstetric History No data available Duration of Symptoms: Progressive PAST MEDICAL HISTORY Diagnosis Date Arthritis Cirrhosis (HCC) Cirrhosis (HCC) Edema Flexural atopic dermatitis Inflamed seborrheic keratosis Liver disease Multiple nevi PMH - PAST MEDICAL HISTORY OF 01/24/08 pancreatitis PMH - PAST MEDICAL HISTORY OF htn PMH - PAST MEDICAL HISTORY OF hx varicose veins PMH - PAST MEDICAL HISTORY OF 05/17/08 pulmonary embolus- postop left TKA Seborrheic keratoses Solar lentiginosis PAST SURGICAL HISTORY Procedure Laterality Date PAST SURGICAL HISTORY OF 1991 JULIETA/BSO for fibroids PAST SURGICAL HISTORY OF tonsillectomy PAST SURGICAL HISTORY OF 05/14/08 Left TKA PAST SURGICAL HISTORY OF 08/29/2011 R TKA SOCIAL HISTORY: Social History Tobacco Use Smoking status: Never Smokeless tobacco: Never Substance Use Topics Alcohol use: Yes Comment: 3 glasses of wine daily-quit 05/2016 Drug use: No FAMILY HISTORY Problem Relation Age of Onset None Mother Dementia Mother Diabetes Father Heart Father Melanoma Father Melanoma Brother MEDICATIONS: nadolol (CORGARD) 20 mg tablet TAKE ONE TABLET BY MOUTH EVERY DAY potassium chloride ER (K-DUR, KLOR-CON) 20 mEq tablet Take 20 mEq by mouth once daily. diclofenac sodium (VOLTAREN) 1 % topical gel Apply 2 g to affected area four times daily as needed. spironolactone (ALDACTONE) 50 mg tablet Take 1 tablet by mouth twice daily. furosemide (LASIX) 20 mg tablet Take 2 tablets by mouth twice daily. MILK THISTLE ORAL Take by mouth once daily. ibuprofen (MOTRIN) 200 mg tablet Take 400 mg by mouth three times daily. ALLERGIES: ALLERGIES Allergen Reactions Clarithromycin (Bul* Other: See Comments pancrititis Steroids [Betametha* Intolerance pancritis REVIEW of SYSTEMS: Constitutional: No weight loss, malaise or fevers. HEENT: Negative for frequent or significant headaches, No changes in hearing or vision, no nose bleeds or other nasal problems Respiratory: Negative for cough, wheezing, or shortness of breath Cardiovascular: Negative for chest pain and palpitations and Positive for leg swelling Gatrointestinal: Negative for blood in stools or black stools and Positive for abdominal discomfortand has hernia Genitourinary: No difficulty urination, nocturia >1 times per night or hematuria Musculoskeletal: Negative for muscle pain and Positive for back pain, joint pain, and muscle pain Endocrine: Positive for cold intolerance Hematology/Lymphatic: Negative for prolonged bleeding and Positive for bruises easily Neurologic: No history or headaches, syncope, paralysis, seizures or tremors Integumentary: Negative for rash and itching and Positive for lesions PHYSICAL EXAM: VITALS: There were no vitals taken for this visit. General: Alert, oriented, cooperative, healthy appearance Integumentary: Normal color, no rash, no lesions. HEENT: EOM, pupils equal, round and reactive. Cardiovascular: Pulse regular. Lungs: No chest deformities or chest wall tenderness. Abdomen: Not examined Extremities: Edema and Varicose veins Ulcers Neurological: AAOx3. Normal cognition and motor skills. Vascular: Dorsalis Pedal Right: Normal - Left: Normal Diagnostic tests reviewed for today's visit: Most recent labs IMPRESSION: Ms. Ga is a 73 year old female with secondary lymphedema, venous ulceration, venous insufficiency . PLAN and RECOMMENDATIONS: Will get updated vascular testing- venous incompetency study [facility] Prescription provided for compression stockings/wraps Follow up after testing SIGNATURE: Gt Yin DO PATIENT NAME: Mary Alice Ga DATE: February 27, 2024 TIME: 8:31 AM [facility] NoteHNO ID: [id number] Author: LISETH ALANIS PT Service: ? Author Type: Physical Therapist Type: Progress Notes Filed: 02/20/2024 11:09 Note Text: Episode Visit Count: 5 Therapist That Will Accept/Oversee The Plan Of Care: Liseth Alanis Start of Care Date: 01/24/24 Onset Date: 01/23/21 Plan of Care Certification Date: 01/24/24 Next Certification Due Date: 03/20/24 [facility]ERAPY PHYSICAL THERAPY TREATMENT NOTE ASSESSMENT: Mary Alice Ga tolerated the session with increased symptoms. She demonstrated difficulty with less reps sit <> stand x30 sec and initially more time to complete TUG test. Pt. Demonstrated much improvement with TUG test when she was informed of her score as compared to the initial eviist. . The patient will continue to benefit from ongoing skilled physical therapy to progress toward set goals. PLAN FOR NEXT VISIT: SUBJECTIVE: Pt. reports that things are improving but she says she has a way to go. Topicals improve her back pain. Patient Goals: amb without an AD from handicap spot to front door without LOB Pain: Pain Pain Level: 6 Pain Location: Back Description: Aching Additional Pain Information : Location 2 Pain Level 2: 8 Pain Location 2: Leg - Right (wound) Post Treatment Pain Post Treatment Pain Location: Back OBJECTIVE MEASURES WITH LEVEL OF FUNCTION: Functional Performance Test Results Assistive Device: Cane 30 Second Chair Stand Test: 7 reps Timed Up and Go (sec): 23 sec Timed Up and Go - Condition 2 (sec) : 17 TREATMENT: Therapeutic Exercise: 1: SciFit stepper x 5 min 1:1 throughout. level 3 seat 13 subjective collected (discussed pt. wound wrapping on RLE) 2: 30 sec sit <> stand with chair using arm rests Skilled Intervention: Patient was educated in proper exercise technique and purpose for exercises. Skilled judgment was used in selection of appropriate interventions. Correct performance of therapeutic exercises was facilitated with verbal, visual, and tactile cuing. Educated patient on rationale for performing exercises in regards to decreasing fatigue , including balance, increase ease of ADL, and ROM and function . Patient education as noted. Neuromuscular Re-Education: 1: TUG test 2x with SC Skilled Intervention: Skilled judgment used to assess appropriate program for balance and coordination activity. Education in proprioceptive/kinesthetic awareness during standing and dynamic activities. Ensured patient safety with use of SC and PT guarding. Correct performance of home program was facilitated with verbal and visual cueing. Patient education as noted. Gait Training: Distance (feet): 180 3x Gait Cues: use of SC in the L hand to improve trunk lean R and reduce WB of RLE Assistive Device: SC Assist Level: CGA Skilled Intervention: Patient was provided contact guard assistance during pre-gait/gait training to prevent falls and insure safety. Facilitated proper gait cycle with the use of verbal, visual, and tactile cues for correction of gait deviations identified in the objective section above. Gait belt utilized during session for safety. Self-Correction Management: 1: encouraged pt. to wear shoes that are supportive and unable to slip off 2: discussed that lumbar curvature may not be changed with PT but we can maintain mobility/strength to maintain or prevent increased pain 3: strongly encouraged pt. to use her SC Skilled Intervention: Skilled judgment in the selection of proper modification for activity of daily living/home management based on clinical presentation, deficits, and needs. Reviewed patient specific diagnosis in relation to activities of daily living/home management. Activity progression based on professional judgement. Moderate verbal cues for maintaining neutral spine alignment. Correct performance of home program was facilitated with verbal, visual, and tactile cueing. Billing Therapeutic Exercise Treatment Minutes: 10 Neuromuscular Re-Education Treatment Minutes: 5 Self-Care/Home Management Treatment Minutes: 10 Gait Training Treatment Minutes: 15 Skilled Treatment Time Minutes (timed and untimed codes): 40 Total Session Time (minutes): 40 Session Start Time : 1030 Session Stop Time : 1110 Liseth WhiteCarlos, [facility]06-18-2024 History of Present illness Narrative* Liseth Alanis, PT - 02/20/2024 10:33 AM EDT Episode Visit Count: 5 Therapist That Will Accept/Oversee The Plan Of Care: Lisethfantasma Alanis Start of Care Date: 01/24/24 Onset Date: 01/23/21 Plan of Care Certification Date: 01/24/24 Next Certification Due Date: 03/20/24 REHABILITATION AND SPORTS THERAPY PHYSICAL THERAPY TREATMENT NOTE ASSESSMENT: Mary Alice Ga tolerated the session with increased symptoms. She demonstrated difficulty with less reps sit <> stand x30 sec and initially more time to complete TUG test. Pt. Demonstrated much improvement with TUG test when she was informed of her score as compared to the initial eviist. . The patient will continue to benefit from ongoing skilled physical therapy to progress toward set goals. PLAN FOR NEXT VISIT: SUBJECTIVE: Pt. reports that things are improving but she says she has a way to go. Topicals improve her back pain. Patient Goals: amb without an AD from handicap spot to front door without LOB Pain: Pain Pain Level: 6 Pain Location: Back Description: Aching Additional Pain Information : Location 2 Pain Level 2: 8 Pain Location 2: Leg - Right (wound) Post Treatment Pain Post Treatment Pain Location: Back OBJECTIVE MEASURES WITH LEVEL OF FUNCTION: Functional Performance Test Results Assistive Device: Cane 30 Second Chair Stand Test: 7 reps Timed Up and Go (sec): 23 sec Timed Up and Go - Condition 2 (sec) : 17 TREATMENT: Therapeutic Exercise: 1: SciFit stepper x 5 min 1:1 throughout. level 3 seat 13 subjective collected (discussed pt. woundwrapping on RLE) 2: 30 sec sit <> stand with chair using arm rests Skilled Intervention: Patient was educated in proper exercise technique and purpose for exercises. Skilled judgment was used in selection of appropriate interventions. Correct performance of therapeutic exercises was facilitated with verbal, visual, and tactile cuing. Educated patient on rationale for performing exercises in regards to decreasing fatigue , includingbalance, increase ease of ADL, and ROM and function . Patient education as noted. Neuromuscular Re-Education: 1: TUG test 2x with SC Skilled Intervention: Skilled judgment used to assess appropriate program for balance and coordination activity. Education in proprioceptive/kinesthetic awareness during standing and dynamic activities. Ensured patient safety with use of SC and PT guarding. Correct performance of home program was facilitated with verbal and visual cueing. Patient education as noted. Gait Training: Distance (feet): 180 3x Gait Cues: use of SC in the L hand to improve trunk lean R and reduce WB of RLE Assistive Device: SC Assist Level: CGA Skilled Intervention: Patient was provided contact guard assistance during pre- gait/gait training to prevent falls and insure safety. Facilitated proper gait cycle with the use of verbal, visual, and tactile cues for correction of gait deviations identified in the objective section above. Gait belt utilized during session for safety. Self-Correction Management: 1: encouraged pt. to wear shoes that are supportive and unable to slip off 2: discussed that lumbar curvature may not be changed with PT but we can maintain mobility/strengthto maintain or prevent increased pain 3: strongly encouraged pt. to use her SC Skilled Intervention: Skilled judgment in the selection of proper modification for activity of daily living/home management based on clinical presentation, deficits, and needs. Reviewed patient specific diagnosis in relation to activities of daily living/home management. Activity progression based on professional judgement. Moderate verbal cues for maintaining neutral spine alignment. Correct performance of home program was facilitated with verbal, visual, and tactile cueing. Billing Therapeutic Exercise Treatment Minutes: 10 Neuromuscular Re-Education Treatment Minutes: 5 Self-Care/Home Management Treatment Minutes: 10 Gait Training Treatment Minutes: 15 Skilled Treatment Time Minutes (timed and untimed codes): 40 Total Session Time (minutes): 40 Session Start Time : 1030 Session Stop Time : 1110 [facility] of Present illness Narrative* Liseth Alanis PT - 02/13/2024 11:06 AM EDT Program_ID:[id number] Access Code: [email or web address] URL: [email or web address] Date: 02-13-2024 Prepared By: Liseth Alanis Program Notes Exercises - Seated Lumbar Flexion Stretch - 2-3 x daily - 7 x weekly - 2-3 sets - 10 reps - Standing Hip Abduction with Counter Support - 1 x daily - 7 x weekly - 4 sets - 15 reps - Standing Knee Flexion with Counter Support - 1 x daily - 7 x weekly - 4 sets - 15 reps - Mini Squat with Counter Support - 1 x daily - 7 x weekly - 4 sets - 15 reps - Heel Raises with Counter Support - 1 x daily - 7 x weekly - 2 sets - 12 reps * Liseth Alanis, PT - 02/13/2024 10:31 AM EDT Episode Visit Count: 4 Therapist That Will Accept/Oversee The Plan Of Care: Liseth Alanis Start of Care Date: 01/24/24 Onset Date: 01/23/21 Plan of Care Certification Date: 01/24/24 Next Certification Due Date: 03/20/24 REHABILITATION AND SPORTS THERAPY PHYSICAL THERAPY TREATMENT NOTE ASSESSMENT: Mary Alice Ga tolerated the session with decreased symptoms. She demonstrated difficulty with stepping over x 6 obstacles requiring x2 UE support. Pt. Became tearful due to fear despite no LOB or sway with completing the obstacles. The patient will continue to benefit from ongoing skilled physical therapy to progress toward set goals. PLAN FOR NEXT VISIT: SUBJECTIVE: HEP is going well. Lumbar flexion movement does reduce her pain. Patient Goals: amb without an AD from handicap spot to front door without LOB Pain: Pain Pain Level: 5 Pain Location: Back Description: Aching Post Treatment Pain Post Treatment Pain Level: 2 Post Treatment Pain Location: Back OBJECTIVE MEASURES WITH LEVEL OF FUNCTION: TREATMENT: Therapeutic Exercise: 1: SciFit stepper x 5 min 1:1 throughout. level 3 seat 13 subjective collected 2: 85 cm physioball roll out lumbar flexion 2x10 3: 85 cm physioball roll out lumbar side flexion each side 2x10 4: step ups fwd 6 x2 UE support 1x12 each LE lead 5: step ups fwd 6 x1 UE support 2x12 each LE lead 6: B heel raises 2x12 1st set with x1 UE support, 2nd set without UE support Skilled Intervention: Patient was educated in proper exercise technique and purpose for exercises. Skilled judgment was used in selection of appropriate interventions. Provided written instruction for home exercise program to facilitate proper performance and compliance. Correct performance of therapeutic exercises was facilitated with verbal, visual, and tactile cuing. Educated patient on rationale for performing exercises in regards to decreasing fatigue , increase ease of ADL, and ROM and function . Patient education as noted. Neuromuscular Re-Education: 1: 6 hurdles x6 fwd stepping with SC and PLUCK TRIMMER 4x R lead, 4x L lead Skilled Intervention: Skilled judgment used to assess appropriate program for balance and coordination activity. Education in proprioceptive/kinesthetic awareness during dynamic activities. Ensured patient safety with use of // bars and gait belt. Billing Therapeutic Exercise Treatment Minutes: 30 Neuromuscular Re-Education Treatment Minutes: 10 Skilled Treatment Time Minutes (timed and untimed codes): 40 Total Session Time (minutes): 40 Session Start Time : 1028 Session Stop Time : 1108 Liseth Alanis PT [facility] NoteHNO ID: [id number] Author: LISETH ALANIS PT Service: ? Author Type: Physical Therapist Type: Progress Notes Filed: 02/13/2024 11:16 Note Text: Episode Visit Count: 4 Therapist That Will Accept/Oversee The Plan Of Care: Liseth Alanis Start of Care Date: 01/24/24 Onset Date: 01/23/21 Plan of Care Certification Date: 01/24/24 Next Certification Due Date: 03/20/24 REHABILITATION AND SPORTS THERAPY PHYSICAL THERAPY TREATMENT NOTE ASSESSMENT: Mary Alice Ga tolerated the session with decreased symptoms. She demonstrated difficulty with stepping over x 6 obstacles requiring x2 UE support. Pt. Became tearful due to fear despite no LOB or sway with completing the obstacles. The patient will continue to benefit from ongoing skilled physical therapy to progress toward set goals. PLAN FOR NEXT VISIT: SUBJECTIVE: HEP is going well. Lumbar flexion movement does reduce her pain. Patient Goals: amb without an AD from handicap spot to front door without LOB Pain: Pain Pain Level: 5 Pain Location: Back Description: Aching Post Treatment Pain Post Treatment Pain Level: 2 Post Treatment Pain Location: Back OBJECTIVE MEASURES WITH LEVEL OF FUNCTION: TREATMENT: Therapeutic Exercise: 1: SciFit stepper x 5 min 1:1 throughout. level 3 seat 13 subjective collected 2: 85 cm physioball roll out lumbar flexion 2x10 3: 85 cm physioball roll out lumbar side flexion each side 2x10 4: step ups fwd 6 x2 UE support 1x12 each LE lead 5: step ups fwd 6 x1 UE support 2x12 each LE lead 6: B heel raises 2x12 1st set with x1 UE support, 2nd set without UE support Skilled Intervention: Patient was educated in proper exercise technique and purpose for exercises. Skilled judgment was used in selection of appropriate interventions. Provided written instruction for home exercise program to facilitate proper performance and compliance. Correct performance of therapeutic exercises was facilitated with verbal, visual, and tactile cuing. Educated patient on rationale for performing exercises in regards to decreasing fatigue , increase ease of ADL, and ROM and function . Patient education as noted. Neuromuscular Re-Education: 1: 6 hurdles x6 fwd stepping with SC and PLUCK TRIMMER 4x R lead, 4x L lead Skilled Intervention: Skilled judgment used to assess appropriate program for balance and coordination activity. Education in proprioceptive/kinesthetic awareness during dynamic activities. Ensured patient safety with use of // bars and gait belt. Billing Therapeutic Exercise Treatment Minutes: 30 Neuromuscular Re-Education Treatment Minutes: 10 Skilled Treatment Time Minutes (timed and untimed codes): 40 Total Session Time (minutes): 40 Session Start Time : 1028 Session Stop Time : 1108 Liseth Alanis, [facility]06-04-2024 History of Present illness Narrative* Liseth Alanis, PT - 02/06/2024 8:47 AM EDT Program_ID:[id number] Access Code: [email or web address] URL: [email or web address] Date: 02-06-2024 Prepared By: Liseth Alanis Program Notes Exercises - Seated Lumbar Flexion Stretch - 2-3 x daily - 7 x weekly - 2-3 sets - 10 reps - Standing Hip Abduction with Counter Support - 1 x daily - 7 x weekly - 4 sets - 15 reps - Standing Knee Flexion with Counter Support - 1 x daily - 7 x weekly - 4 sets - 15 reps - Mini Squat with Counter Support - 1 x daily - 7 x weekly - 4 sets - 15 reps * Liseth Alanis, PT - 02/06/2024 8:15 AM EDT Episode Visit Count: 3 Therapist That Will Accept/Oversee The Plan Of Care: Liseth Alanis Start of Care Date: 01/24/24 Onset Date: 01/23/21 Plan of Care Certification Date: 01/24/24 Next Certification Due Date: 03/20/24 REHABILITATION AND SPORTS THERAPY PHYSICAL THERAPY TREATMENT NOTE ASSESSMENT: Mary Alice Ga tolerated the session with decreased symptoms. She demonstrated difficulty with static balance exercises with the eyes closed. The patient will continue to benefit from ongoing skilled physical therapy to progress toward set goals. Current Frequency: 1x/week PLAN FOR NEXT VISIT: dynamic balance activites if pt. brings closed back shoes. stepping over hurdles. step ups. add to HEP additional kitchen sink exercises. SUBJECTIVE: Pt. reports that she does the lumbar flexion exercises intermittently throughout the day. Denies pain while seated but has increased pain with walking. She wants to work on her balance. Pain: Pain Pain Level: 8 Pain Location: Back Description: Aching Post Treatment Pain Post Treatment Pain Level: 5 Post Treatment Pain Location: Back Post Treatment Symptoms: BLE fatigued OBJECTIVE MEASURES WITH LEVEL OF FUNCTION: CTSIB Eyes open, firm surface Trial 1 (sec): 30 Eyes open, firm surface Trial 1 (sway): Mild Eyes closed, firm surface Trial 1 (sec): 30 Eyes closed, firm surface Trial 1 (sway): Mild Eyes open, foam surface Trial 1 (sec): 30 Eyes open, foam surface Trial 1 (sway): Mild Eyes closed, foam surface Trial 1 (sec): 5 Eyes closed, foam surface Trial 1 (sway): Loss of balance Eyes closed, foam surface Trial 2 (sec): 8 Eyes closed, foam surface Trial 2 (sway): Loss of balance Eyes closed, foam surface Trial 3 (sec): 4 Eyes closed, foam surface Trial 3 (sway): Loss of balance Tandem standing, eyes open Trial 1 (sec): 12 Tandem standing, eyes open Trial 1 (sway): Loss of balance Tandem standing, eyes open Trial 2 (sec): 12 Tandem standing, eyes open Trial 2 (sway): Loss of balance Tandem standing, eyes open Trial 3 (sec): 2 Tandem standing, eyes open Trial 3 (sway): Loss of balance Partial tandem standing, eyes open Trial 1 (sec): 30 Partial tandem standing, eyes open Trial 1 (sway): Mild Partial tandem standing, eyes closed Trial 1 (sec): 8 Partial tandem standing, eyes closed Trial 1 (sway): Loss of balance Partial tandem standing, eyes closed Trial 2 (sec): 2 Partial tandem standing, eyes closed Trial 2 (sway): Loss of balance Partial tandem standing, eyes closed Trial 3 (sec): 14 Partial tandem standing, eyes closed Trial 3 (sway): Loss of balance TREATMENT: Therapeutic Exercise: 1: SciFit stepper x 5 min 1:1 throughout. level 2 seat 13 subjective collected 2: *Access Code: [email or web address] URL: [email or web address] Date: 02/06/2024 Prepared by: Liseth Silva Exercises - Seated Lumbar Flexion Stretch - 2-3 x daily - 7 x weekly - 2-3 sets -10 reps - 1 hold - Standing Hip Abduction with Counter Support - 1 x daily - 7 x weekly - 4 sets - 15 reps - Standing Knee Flexion with Counter Support - 1 x daily - 7 x weekly - 4 sets - 15 reps - Mini Squat with Counter Support - 1 x daily - 7 x weekly - 4 sets - 15 reps Skilled Intervention: Patient was educated in proper exercise technique and purpose for exercises. Skilled judgment was used in selection of appropriate interventions. Provided written instruction for home exercise program to facilitate proper performance and compliance. Correct performance of therapeutic exercises was facilitated with verbal, visual, and tactile cuing. Educated patient on rationale for performing exercises in regards to decreasing fatigue , increase ease of ADL, and ROM and function . Patient education as noted. Neuromuscular Re-Education: 1: romberg 30 sec firm EO 2: semi tandem 30 sec firm EO 3: tandem 3x trials firm surface, EO 4: romberg 30 sec firm EO 5: romberg 30 sec firm EC 3x trials 6: semi tandem 30 sec firm EC, 3x trials Skilled Intervention: Skilled judgment used to assess appropriate program for balance and coordination activity. Education in proprioceptive/kinesthetic awareness during standing and dynamic activities. Ensured patient safety with use of // bars and gait belt. Reviewed and educated patient on additions/changes for home program as noted above with an (*). Patient education as noted. Self-Correction Management: 1: discussed a heel lift could be helpful, but turnk and hip weakness cant contribute to leg lengthand trunk posture 2: advised shoes with a back on them Skilled Intervention: Skilled judgment in the selection of proper modification for activity of daily living/home management based on clinical presentation, deficits, and needs. Provided written instruction for activities of daily living techniques to facilitate proper performance and compliance. Reviewed patient specific diagnosis in relation to activities of daily living/home management. Activity progression based on professional judgement. Reviewed and educated patient on additions/changes for home program as noted above with an (*). Provided written instruction for home program to facilitate proper performance and compliance. Correct performance of home program was facilitated with verbal, visual, and tactile cueing. Billing Therapeutic Exercise Treatment Minutes: 25 Neuromuscular Re-Education Treatment Minutes: 10 Self-Care/Home Management Treatment Minutes: 5 Skilled Treatment Time Minutes (timed and untimed codes): 40 Total Session Time (minutes): 40 Session Start Time : 814 Session Stop Time : 854 Liseth Alanis PT [facility] NoteHNO ID: [id number] Author: LISETH ALANIS PT Service: ? Author Type: Physical Therapist Type: Progress Notes Filed: 02/06/2024 08:55 Note Text: Episode Visit Count: 3 Therapist That Will Accept/Oversee The Plan Of Care: Liseth Alanis Start of Care Date: 01/24/24 Onset Date: 01/23/21 Plan of Care Certification Date: 01/24/24 Next Certification Due Date: 03/20/24 REHABILITATION AND SPORTS THERAPY PHYSICAL THERAPY TREATMENT NOTE ASSESSMENT: Mary Alice Ga tolerated the session with decreased symptoms. She demonstrated difficulty with static balance exercises with the eyes closed. The patient will continue to benefit from ongoing skilled physical therapy to progress toward set goals. Current Frequency: 1x/week PLAN FOR NEXT VISIT: dynamic balance activites if pt. brings closed back shoes. stepping over hurdles. step ups. add to HEP additional kitchen sink exercises. SUBJECTIVE: Pt. reports that she does the lumbar flexion exercises intermittently throughout the day. Denies pain while seated but has increased pain with walking. She wants to work on her balance. Pain: Pain Pain Level: 8 Pain Location: Back Description: Aching Post Treatment Pain Post Treatment Pain Level: 5 Post Treatment Pain Location: Back Post Treatment Symptoms: BLE fatigued OBJECTIVE MEASURES WITH LEVEL OF FUNCTION: CTSIB Eyes open, firm surface Trial 1 (sec): 30 Eyes open, firm surface Trial 1 (sway): Mild Eyes closed, firm surface Trial 1 (sec): 30 Eyes closed, firm surface Trial 1 (sway): Mild Eyes open, foam surface Trial 1 (sec): 30 Eyes open, foam surface Trial 1 (sway): Mild Eyes closed, foam surface Trial 1 (sec): 5 Eyes closed, foam surface Trial 1 (sway): Loss of balance Eyes closed, foam surface Trial 2 (sec): 8 Eyes closed, foam surface Trial 2 (sway): Loss of balance Eyes closed, foam surface Trial 3 (sec): 4 Eyes closed, foam surface Trial 3 (sway): Loss of balance Tandem standing, eyes open Trial 1 (sec): 12 Tandem standing, eyes open Trial 1 (sway): Loss of balance Tandem standing, eyes open Trial 2 (sec): 12 Tandem standing, eyes open Trial 2 (sway): Loss of balance Tandem standing, eyes open Trial 3 (sec): 2 Tandem standing, eyes open Trial 3 (sway): Loss of balance Partial tandem standing, eyes open Trial 1 (sec): 30 Partial tandem standing, eyes open Trial 1 (sway): Mild Partial tandem standing, eyes closed Trial 1 (sec): 8 Partial tandem standing, eyes closed Trial 1 (sway): Loss of balance Partial tandem standing, eyes closed Trial 2 (sec): 2 Partial tandem standing, eyes closed Trial 2 (sway): Loss of balance Partial tandem standing, eyes closed Trial 3 (sec): 14 Partial tandem standing, eyes closed Trial 3 (sway): Loss of balance TREATMENT: Therapeutic Exercise: 1: SciFit stepper x 5 min 1:1 throughout. level 2 seat 13 subjective collected 2: *Access Code: [email or web address] URL: [email or web address] Date: 02/06/2024 Prepared by: Liseth Alanis Exercises - Seated Lumbar Flexion Stretch - 2-3 x daily - 7 x weekly - 2-3 sets - 10 reps - 1 hold - Standing Hip Abduction with Counter Support - 1 x daily - 7 x weekly - 4 sets - 15 reps - Standing Knee Flexion with Counter Support - 1 x daily - 7 x weekly - 4 sets - 15 reps - Mini Squat with Counter Support - 1 x daily - 7 x weekly - 4 sets - 15 reps Skilled Intervention: Patient was educated in proper exercise technique and purpose for exercises. Skilled judgment was used in selection of appropriate interventions. Provided written instruction for home exercise program to facilitate proper performance and compliance. Correct performance of therapeutic exercises was facilitated with verbal, visual, and tactile cuing. Educated patient on rationale for performing exercises in regards to decreasing fatigue , increase ease of ADL, and ROM and function . Patient education as noted. Neuromuscular Re-Education: 1: romberg 30 sec firm EO 2: semi tandem 30 sec firm EO 3: tandem 3x trials firm surface, EO 4: romberg 30 sec firm EO 5: romberg 30 sec firm EC 3x trials 6: semi tandem 30 sec firm EC, 3x trials Skilled Intervention: Skilled judgment used to assess appropriate program for balance and coordination activity. Education in proprioceptive/kinesthetic awareness during standing and dynamic activities. Ensured patient safety with use of // bars and gait belt. Reviewed and educated patient on additions/changes for home program as noted above with an (*). Patient education as noted. Self-Correction Management: 1: discussed a heel lift could be helpful, but turnk and hip weakness cant contribute to leg length and trunk posture 2: advised shoes with a back on them Skilled Intervention: Skilled judgment in the selection of proper modification for activity of daily living/home management based on clinical presentation, deficits, and needs. Provided written instruct (more content not included)...[facility]05-28-2024 History of Present illness Narrative* Liseth Alanis, PT - 01/30/2024 11:07 AM EDT Program_ID:[id number] Access Code: [email or web address] URL: [email or web address]/ Date: 01-30-2024 Prepared By: Liseth Alanis Program Notes Exercises - Seated Lumbar Flexion Stretch - 2-3 x daily - 7 x weekly - 2-3 sets - 10 reps * Liseth Alanis, PT - 01/30/2024 10:31 AM EDT Episode Visit Count: 2 Therapist That Will Accept/Oversee The Plan Of Care: Liseth Alanis Start of Care Date: 01/24/24 Onset Date: 01/23/21 Plan of Care Certification Date: 01/24/24 Next Certification Due Date: 03/20/24 REHABILITATION AND SPORTS THERAPY PHYSICAL THERAPY TREATMENT NOTE ASSESSMENT: Mary Alice Ga tolerated the session with fatigue. She demonstrated difficulty with static standing on foam without UE support but was able to complete for 30 sec with minimal sway without LOB. . The patient will continue to benefit from ongoing skilled physical therapy to progresstoward set goals. PLAN FOR NEXT VISIT: SUBJECTIVE: Pt. reports achiness in her hips and knees over the weekend while at her cabin. Denies falls. Pain: Pain Pain Level: 8 Pain Location: Leg - Right, Leg - Left Description: Aching Post Treatment Pain Post Treatment Pain Level: No Change OBJECTIVE MEASURES WITH LEVEL OF FUNCTION: Functional Performance Test Results 6 Minute Walk Test (ft): 680 ft 6 Minute Walk Test Gait Speed (calculated): 0.58 m/s TREATMENT: Therapeutic Exercise: 1: SciFit stepper x 5 min 1:1 throughout. level 1 seat 13 subjective collected 2: side glides standing at // bars BUE support in front of mirror 2x10 - dc due to increased LBP 3: seated lumbar flexion 3-4 sets of 10 to reduce LBP Skilled Intervention: Patient was educated in proper exercise technique and purpose for exercises. Skilled judgment was used in selection of appropriate interventions. Provided written instruction for home exercise program to facilitate proper performance and compliance. Correct performance of therapeutic exercises was facilitated with verbal, visual, and tactile cuing. Educated patient on rationale for performing exercises in regards to decreasing fatigue , includingbalance, increase ease of ADL, and ROM and function . Patient education as noted. Neuromuscular Re-Education: 1: foam romberg no UE support 30 sec 2: foam standard stance 30 sec no UE support 3: alt marches on foam, x1 UE support in // bars Skilled Intervention: Skilled judgment used to assess appropriate program for balance and coordination activity. Education in proprioceptive/kinesthetic awareness during standing and dynamic activities. Education and demonstration for posture and positioning for tone management. Ensured patient safety with use of // bars and gait belt. Patient education as noted. Gait Training: Distance (feet): 680 Gait Cues: trunk posture (able to walk and talk) Assistive Device: SC Assist Level: SBA Skilled Intervention: Patient was provided stand by assist during pre-gait/gait training to preventfalls and insure safety. Gait belt utilized during session for safety. Self-Correction Management: 1: discussed that PT may not correct fixed scoliosis but strengthening can address posture and symptoms Skilled Intervention: Skilled judgment in the selection of proper modification for activity of daily living/home management based on clinical presentation, deficits, and needs. Provided written instruction for activities of daily living techniques to facilitate proper performance and compliance. Reviewed patient specific diagnosis in relation to activities of daily living/home management. Activity progression based on professional judgement. Moderate verbal cues for maintaining neutral spine alignment. Provided written instruction for home program to facilitate proper performance and compliance. Correct performance of home program was facilitated with verbal, visual, and tactile cueing. Billing Therapeutic Exercise Treatment Minutes: 20 Neuromuscular Re-Education Treatment Minutes: 9 Self-Care/Home Management Treatment Minutes: 5 Gait Training Treatment Minutes: 6 Skilled Treatment Time Minutes (timed and untimed codes): 40 Total Session Time (minutes): 40 Session Start Time : 1030 Session Stop Time : 1110 Liseth Alanis [facility] NoteHNO ID: [id number] Author: LISETH ALANIS PT Service: ? Author Type: Physical Therapist Type: Progress Notes Filed: 01/30/2024 11:15 Note Text: Episode Visit Count: 2 Therapist That Will Accept/Oversee The Plan Of Care: Liseth Alanis Start of Care Date: 01/24/24 Onset Date: 01/23/21 Plan of Care Certification Date: 01/24/24 Next Certification Due Date: 03/20/24 REHABILITATION AND SPORTS THERAPY PHYSICAL THERAPY TREATMENT NOTE ASSESSMENT: Mary Alice Ga tolerated the session with fatigue. She demonstrated difficulty with static standing on foam without UE support but was able to complete for 30 sec with minimal sway without LOB. . The patient will continue to benefit from ongoing skilled physical therapy to progress toward set goals. PLAN FOR NEXT VISIT: SUBJECTIVE: Pt. reports achiness in her hips and knees over the weekend while at her cabin. Denies falls. Pain: Pain Pain Level: 8 Pain Location: Leg - Right, Leg - Left Description: Aching Post Treatment Pain Post Treatment Pain Level: No Change OBJECTIVE MEASURES WITH LEVEL OF FUNCTION: Functional Performance Test Results 6 Minute Walk Test (ft): 680 ft 6 Minute Walk Test Gait Speed (calculated): 0.58 m/s TREATMENT: Therapeutic Exercise: 1: SciFit stepper x 5 min 1:1 throughout. level 1 seat 13 subjective collected 2: side glides standing at // bars BUE support in front of mirror 2x10 - dc due to increased LBP 3: seated lumbar flexion 3-4 sets of 10 to reduce LBP Skilled Intervention: Patient was educated in proper exercise technique and purpose for exercises. Skilled judgment was used in selection of appropriate interventions. Provided written instruction for home exercise program to facilitate proper performance and compliance. Correct performance of therapeutic exercises was facilitated with verbal, visual, and tactile cuing. Educated patient on rationale for performing exercises in regards to decreasing fatigue , including balance, increase ease of ADL, and ROM and function . Patient education as noted. Neuromuscular Re-Education: 1: foam romberg no UE support 30 sec 2: foam standard stance 30 sec no UE support 3: alt marches on foam, x1 UE support in // bars Skilled Intervention: Skilled judgment used to assess appropriate program for balance and coordination activity. Education in proprioceptive/kinesthetic awareness during standing and dynamic activities. Education and demonstration for posture and positioning for tone management. Ensured patient safety with use of // bars and gait belt. Patient education as noted. Gait Training: Distance (feet): 680 Gait Cues: trunk posture (able to walk and talk) Assistive Device: SC Assist Level: SBA Skilled Intervention: Patient was provided stand by assist during pre-gait/gait training to prevent falls and insure safety. Gait belt utilized during session for safety. Self-Correction Management: 1: discussed that PT may not correct fixed scoliosis but strengthening can address posture and symptoms Skilled Intervention: Skilled judgment in the selection of proper modification for activity of daily living/home management based on clinical presentation, deficits, and needs. Provided written instruction for activities of daily living techniques to facilitate proper performance and compliance. Reviewed patient specific diagnosis in relation to activities of daily living/home management. Activity progression based on professional judgement. Moderate verbal cues for maintaining neutral spine alignment. Provided written instruction for home program to facilitate proper performance and compliance. Correct performance of home program was facilitated with verbal, visual, and tactile cueing. Billing Therapeutic Exercise Treatment Minutes: 20 Neuromuscular Re-Education Treatment Minutes: 9 Self-Care/Home Management Treatment Minutes: 5 Gait Training Treatment Minutes: 6 Skilled Treatment Time Minutes (timed and untimed codes): 40 Total Session Time (minutes): 40 Session Start Time : 1030 Session Stop Time : 1110 Liseth Alanis [facility]05-22-2024 NoteHNO ID: [id number] Author: LISETH ALANIS, LIDIA Service: ? Author Type: Physical Therapist Type: Progress Notes Filed: 01/24/2024 17:24 Note Text: Episode Visit Count: 1 Therapist That Will Accept/Oversee The Plan Of Care: Liseth Alanis Start of Care Date: 01/24/24 Onset Date: 01/23/21 Plan of Care Certification Date: 01/24/24 Next Certification Due Date: 03/20/24 Patient Identified by Name and Date of : Yes REHABILITATION AND SPORTS THERAPY PHYSICAL THERAPY EVALUATION PLAN OF CARE: Assessment: Mary Alice Ga presents with diagnosis of other malaise that interferes with walking in the community, walking in the house . She presents with impairments in ADL's, balance, gait, independence in exercise, overall function, patient reported outcome measures, posture, range of motion, strength, symptom management, and tissue tenderness. PROMIS? (Patient-Reported Outcomes Measurement Information System) scores were reviewed and identified as a rehabilitation concern. Prognosis for therapy is Fair due to: chronic nature of impairments, coping skills, clinical presentation, multiple co- morbidities, poor historian . She will benefit from skilled therapy services to meet the goals established for this plan of care as noted below. Goals for Episode of Care: created on 01/24/24 through 02/28/24 Patient will report no falls. Improve score on Timed Up and Go Test to 14 or less seconds to reflect decreased fall risk. Improve score on 30 Second Chair Stand to x10 or more repetitions to reflect decreased fall risk. [place] in home exercise program including cardiovascular exercise. Complete 6 MWT x1545 ft or more with or without SC. Patient Goals: amb without an AD from handicap spot to front door without LOB Planned Interventions, Frequency, and Duration: Current Frequency: 1x/week Duration: 6 weeks Total Number of Visits Planned: 6 Planned Treatment Interventions: Self-longterm management (33121), Gait Training (88335), Therapeutic activities (56814), Manual therapy (91196), Neuromuscular re-education (95524), Therapeutic exercise (26299) PLAN FOR NEXT VISIT: 6 MWT Patient demonstrates good understanding of plan of care and treatment. The above goals and plan of care were discussed and agreed upon by patient/family. SUBJECTIVE: for functional decline. Pt. reports hx of hip surgery that caused a severe leg length difference. She is considering seeing a DPM. She mentions that her has been ill and requires a lot more care. He is indep with ADLs but requires her assistance with house tasks. Pt. amb with SC for the past 3 years. Her goal is to amb community distances without it. She admits to cruising the regan at home without use of AD. Most recent fall in August without injury but she needed squad lift assist to get back up. Pt. sees vascular this week for BLE edema. Presents with compression stockings which she reports has been beneficial. Patient Goals: amb without an AD from handicap spot to front door without LOB Functional Limitations: walking in the community, walking in the house Prior Level of Function: Independent without limitations Intake Information: Prescription present Falls Interview: Fall without injury in the last year Red Flags Vertebral Fracture Red Flags: Age >70, Female Vertebral Fracture Clinical Reasoning: Proceed with caution due to the above (1-2) risk factors Abdominal Aortic Aneurysm Red Flags: Age >60 Abdominal Aortic Aneurysm Clinical Reasoning: Proceed with caution Cancer Red Flags: Age >50 or <20, History of Cancer Cancer Clinical Reasoning: Proceed with caution Infection Clinical Reasoning: Proceed with caution Cauda Equina Syndrome Clinical Reasoning: No identified risk factors. Red Flags - Cervical Cancer Red Flags: Age >50 or <20, History of Cancer Cancer Clinical Reasoning: Proceed with caution Infection Clinical Reasoning: Proceed with caution Pain: Pain Pain Level: (does not rate) Pain Location: Leg - Right, Leg - Left Description: Aching Post Treatment Pain Post Treatment Pain Level: 0 PROMIS Scales 01/24/2024 Higher is Better Phys Func - Score 37 (moderate dysfunction) Phys Func - Percentile 10 T-scores: mean of general population = 50. 5 points is clinically meaningfully difference Percentiles provide an indication of how the patient's score ranks in relation to the general population. Higher percentile rankings indicate better function/quality of life. 50th percentile is the average of the general population and indicates half of respondents had a worse score. OBJECTIVE MEASURES WITH LEVEL OF FUNCTION: Posture / Alignment Posture: Lateral Shift (shift R) Sitting Posture: Right lateral shift Effects of Posture Correction: unable Sensation - Lumbar Sensation: Grossly Intact Lumbar Spine AROM Lumbar Flexion: Major limitation Lumbar Extension: Major limitation Mobil (more content not included)...[facility]05-22-2024 History of Present illness Narrative* Liseth Alanis, PT - 01/24/2024 3:43 PM EDT Images from the original note were not included. Episode Visit Count: 1 Therapist That Will Accept/Oversee The Plan Of Care: Liseth Alanis Start of Care Date: 01/24/24 Onset Date: 01/23/21 Plan of Care Certification Date: 01/24/24 Next Certification Due Date: 03/20/24 Patient Identified by Name and Date of : Yes REHABILITATION AND SPORTS THERAPY PHYSICAL THERAPY EVALUATION PLAN OF CARE: Assessment: Mary Alice Ga presents with diagnosis of other malaise that interferes with walking in the community, walking in the house . She presents with impairments in ADL's, balance, gait, independence in exercise, overall function, patient reported outcome measures, posture, range of motion, strength, symptom management, and tissue tenderness. PROMIS (Patient-Reported Outcomes Measurement Information System) scores were reviewed and identified as a rehabilitation concern. Prognosis for therapy is Fair due to: chronic nature of impairments, coping skills, clinical presentation, multiple co- morbidities, poor historian . She will benefit from skilled therapy services to meet the goal s established for this plan of care as noted below. Goals for Episode of Care: created on 01/24/24 through 02/28/24 Patient will report no falls. Improve score on Timed Up and Go Test to 14 or less seconds to reflect decreased fall risk. Improve score on 30 Second Chair Stand to x10 or more repetitions to reflect decreased fall risk. [place] in home exercise program including cardiovascular exercise. Complete 6 MWT x1545 ft or more with or without SC. Patient Goals: amb without an AD from handicap spot to front door without LOB Planned Interventions, Frequency, and Duration: Current Frequency: 1x/week Duration: 6 weeks Total Number of Visits Planned: 6 Planned Treatment Interventions: Self-longterm management (07413), Gait Training (73685), Therapeutic activities (12085), Manual therapy (86452), Neuromuscular re-education (48960), Therapeutic exercise (49379) PLAN FOR NEXT VISIT: 6 MWT Patient demonstrates good understanding of plan of care and treatment. The above goals and plan of care were discussed and agreed upon by patient/family. SUBJECTIVE: for functional decline. Pt. reports hx of hip surgery that caused a severe leg length difference. She is considering seeing a DPM. She mentions that her has been ill and requires a lot more care. He is indep with ADLs but requires her assistance with house tasks. Pt. amb with SC for the past 3 years. Her goal is to amb community distances without it. She admits to cruising the regan at home without use of AD. Most recent fall in August without injury but she needed squad lift assist to get back up. Pt. sees vascular this week for BLE edema. Presents with compression stockings which she reports has been beneficial. Patient Goals: amb without an AD from handicap spot to front door without LOB Functional Limitations: walking in the community, walking in the house Prior Level of Function: Independent without limitations Intake Information: Prescription present Falls Interview: Fall without injury in the last year Red Flags Vertebral Fracture Red Flags: Age >70, Female Vertebral Fracture Clinical Reasoning: Proceed with caution due to the above (1- 2) risk factors Abdominal Aortic Aneurysm Red Flags: Age >60 Abdominal Aortic Aneurysm Clinical Reasoning: Proceed with caution Cancer Red Flags: Age >50 or <20, History of Cancer Cancer Clinical Reasoning: Proceed with caution Infection Clinical Reasoning: Proceed with caution Cauda Equina Syndrome Clinical Reasoning: No identified risk factors. Red Flags - Cervical Cancer Red Flags: Age >50 or <20, History of Cancer Cancer Clinical Reasoning: Proceed with caution Infection Clinical Reasoning: Proceed with caution Pain: Pain Pain Level: (does not rate) Pain Location: Leg - Right, Leg - Left Description: Aching Post Treatment Pain Post Treatment Pain Level: 0 PROMIS Scales 01/24/2024 Higher is Better Phys Func - Score 37 (moderate dysfunction) Phys Func - Percentile 10 T-scores: mean of general population = 50. 5 points is clinically meaningfully difference Percentiles provide an indication of how the patient's score ranks in relation to the general population. Higher percentile rankings indicate better function/quality of life. 50th percentile is the average of the general population and indicates half of respondents had a worse score. OBJECTIVE MEASURES WITH LEVEL OF FUNCTION: Posture / Alignment Posture: Lateral Shift (shift R) Sitting Posture: Right lateral shift Effects of Posture Correction: unable Sensation - Lumbar Sensation: Grossly Intact Lumbar Spine AROM Lumbar Flexion: Major limitation Lumbar Extension: Major limitation Mobility Sit To Stand: Modified Independent Stand To Sit: Modified Independent Gait Gait: Modified Independent Gait Distance (feet): 100 Gait Device: Cane Gait Deviations: General Deviations General Deviations/Observations: Trunk Control Decreased, Wide base of support, Lateral sway increased, Flexed trunk posture, Non-functional gait speed, Shuffling Gait, Step length decreased, Difficulty changing direction/turning Functional Performance Test Results Assistive Device: Cane 30 Second Chair Stand Test: 8 reps 6 Minute Walk Test (ft): (TBA next visit) Timed Up and Go (sec): 22 sec (with SC) Timed Up and Go - Condition 2 (sec) : 24 (without SC) Education: Education Learning Preferences: Demonstration, Explanation, Performance Barriers: Emotions Learning/educational needs: Plan of Care, Home exercise program, Gait Training Education Provided: Yes, see treatment interventions for education provided Education Provided To: Patient Education Mode/Type: Demonstration, Explanation/Discussion, Literature/Printed Materials, Performance Response to Education/Teach Back: States/Identifies, Return Demonstration TREATMENT: PT Treatment Interventions: Therapeutic Exercise, Self-Correction Management Evaluation Self-Correction Management: 1: discussed importance of continued use of SC 2: discussed scores and fall risk associated 3: discussed that a heel lift in the R side may not improve postural deviations. Skilled Intervention: Skilled judgment in the selection of proper modification for activity of daily living/home management based on clinical presentation, deficits, and needs. Reviewed patient specific diagnosis in relation to activities of daily living/home management. Activity progression based on professional judgement. Billing * Evaluation Moderate Complexity: 1 Unit Self-Care/Home Management Treatment Minutes: 15 Skilled Treatment Time Minutes (timed and untimed codes): 45 Total Session Time (minutes): 45 Session Start Time : 1540 Session Stop Time : 1625 Liseth Alanis PT [facility] Discharge summary Author Harrison Roper [facility] December 30, 2023 1:30pm Note Date/Time December 30, 2023 1:2 5pm [facility] Medical Records Department [address] [place] [address] Instructions for Home/Discharge Instructions 12/30/23 1025 MR#: [id number] Acct: [id number] Name: MARY ALICE GA Rep #:[id number] : 1950 73 From: Harrison Hughes PCP: Dr. Khanh Rodriguez MD Status:A DM IN Discharge Instructions Diet Discharge Diet: 6 Cup Fluid Restriction and 2000 mg Sodium Diet Activity Discharge Activity: Return to Normal Activity Weight Bearing Status: Weight bearing as tolerated Dressing / Incision Call your doctor if you observe: Fever of 101 or Higher, Coldness, Increased Pain, Numbness or Tingling, Change in Color, Inability to urinate, Inability to have a bowel movement, Using more than 1 pad per hour, Shortness of breath, Dizziness, Fainting spells, Swelling in the ankles, Chest pain, Prolonged hiccupping, Increased palpitations (irregular heartbeat) and Calf discomfort Follow Up Care When: IN 2 WEEKS Test Results: Test results from this visit will be discussed in further detail at your follow- up appointment, if applicable. Discharge Plan Admission Admit Date/Time: 12/27/23 12:32 Primary Reason for Your Visit: Upper GI bleed from esophageal varices bleed, decompensated cirrhosis Attending Provider: Harrison Roper Primary Care Provider: Khanh Rodriguez Discharge Orders/Prescriptions Prescriptions: New lactulose 10 gram/15 mL (15 mL) solution 10 g PO TID Qty: 1440 0RF Rx Instructions: Hold for more than 2 bowel movements per day. Continued acetaminophen 500 mg capsule 500 mg PO Q6H PRN (Reason: pain) spironolactone 50 mg tablet 50 mg PO DAILY calcium carbonate-vitamin D3 [Calcium 600 + D(3)] 600 mg-5 mcg (200 unit) tablet 1 tab PO BID alendronate [Fosamax] 70 mg tablet 70 mg PO MO nadolol 20 mg tablet 20 mg PO DAILY (DME) compress.stocking,knee,reg,lrg Misc See Rx Instructions .MEDSUPPLY Qty: 2 1RF Rx Instructions: wear daily for venous insufficiency 20-30 mmHg anastrozole 1 mg tablet 1 mg PO DAILY Qty: 90 1RF potassium chloride 20 mEq tablet,ER particles/crystals 20 meq PO BID Qty: 90 1RF furosemide 40 mg tablet 40 mg PO DAILY Qty: 30 0RF Changed pantoprazole 40 mg tablet,delayed release (DR/EC) 40 mg PO BIDCM 30 Days Qty: 60 1RF Referrals / Follow Up: Khanh Rodriguez MD [Primary Care Provider] - Johny Davila DO [Med Staff - Active Staff] - Within 1 Month Disposition Disposition (needs filled in before D/C Order can be placed): Home Health Service 12/30/23 1330<Electronically signed by Harrison Roper MD>Harrison Roper MD CC: Dr. Khanh Rodriguez MD ~ Signed [facility] Work Phone: 1(153) 562-422104-27-[address] [facility] 12-30-[address] [facility]04-26-2024 Progress note Author Johny Davila [facility] December 29, 2023 5:46pm Note Date/Time December 29, 2023 5:4 6pm [facility] Medical Records Department [address] [place] [address] Progress Note - GI 12/29/23 1743 MR#: [id number] Acct: [id number] Name: MARY ALICE GA Rep #:[id number] : 1950 73 From: Johny Davila DO PCP: Dr. Khanh Rodriguez MD Status:A DM IN [facility] Subject[facility] Subjective Patient underwent an EGD for upper GI bleed. She was covered to have grade 3 esophageal varices and underwent banding of esophageal varices. She was also discovered to have severe portal gastropathy and no acute pathology in the smallbowel except for some mild ulcerations thought to be secondary to bile duodenitis. She is tolerating a diet without any problem and would like of her diet advanced. Objective Data Objective Data Vital Signs: Vital Signs Temp Pulse Resp BP Pulse Ox O2 Del Method 97.0 F L 63 12 121/57 H 98 Room Air 12/29/23 14:02 12/29/23 14:02 12/29/23 14:02 12/29/23 14:02 12/29/23 14:02 12/29/23 14:02 Oxygen Delivery Method Room Air Weight: 157 lb 10.088 oz Body Mass Index (BMI) 27.0 Intake & Output: Intake and Output for Last 24 Hours 12/27/23 12/28/23 12/29/23 23:59 23:59 23:59 Intake Total 1329.33 / 1329.33 4096.40 / 4096.40 3095.42 / 3095.42 Balance 1329.33 / 1329.33 4096.40 / 4096.40 3095.42 / 3095.42 Lab / Micro Data 12/29/23 05:52 12/29/23 05:52 Labs: Laboratory Results - last 24 hr 12/29/23 05:52: WBC 4.8, RBC 2.23 L, Hgb 8.2 L, Hct 24.3 L, MCV 109.0 H, MCH 36.8 H, MCHC 33.7, RDW Std Deviation 51.9 H, RDW Coeff of [place] 13.1, Plt Count 73L, MPV 9.8, Immature Gran % (Auto) 0.400, Neut % (Auto) 89.6 H, Lymph % (Auto) 7.5 L, [place] % (Auto) 2.5, Eos % (Auto) 0.0, Baso % (Auto) 0.0, Absolute Neuts (auto) 4.3, Absolute Lymphs (auto) 0.36 L, Nucleated RBC % 0, Sodium 136, Potassium 4.3, Chloride 110 H, Carbon Dioxide 20.0 L, Anion Gap 6, BUN 13, Creatinine 0.53 L, Estim Creat Clear Calc 61.63, Est GFR (MDRD) Af Amer 146, EstGFR (MDRD) Non-Af 121, BUN/Creatinine Ratio 24.6 H, Glucose 141 H, Calcium 8.0 L, Magnesium 2.1, Total Bilirubin 4.80 H, Direct Bilirubin 3.69 H, AST 66 H, ALT 25, Alkaline Phosphatase 174 H, Total Protein 5.6 L, Albumin 2.3 L, Globulin 3.3 Micro: Microbiology 12/27/23 09:39 Stool Stool Occult Blood (KENDRA) - Final Occult Blood Positive Assessment & Plan Assessment/Plan (1) Decompensated hepatic cirrhosis: (2) Acute upper GI bleeding: PLAN: Plan This is a 73-year-old female with history of decompensated alcoholic cirrhosis came for black tarry stool, jaundice, weak mild dizziness and very thirsty Acute upper GI bleed likely due to esophageal variceal bleed/PHG: P. H&H 10.1/29.7%.Baseline H&H 11.6/31% H&H every 6 hourly. IV PPI drip after bolus, octreotide drip and ceftriaxone. GI consulted. Status post EGD with banding ofesophageal varices. Patient has been on octreotide, PPI drip, ceftriaxone and is doing well. Hemoglobin seems to be stable. Can transition to oral PPI and stop the octreotide drip Acute blood loss anemia secondary to severe upper GI bleed: Patient baseline hemoglobin is around 11 to 12 g. She was admitted with hemoglobin 10.1 and dropped to 7.9 g. Decompensated alcoholic cirrhosis with ascites, portal hypertension, variceal bleed and jaundice: Liver chemistry reviewed. Platelet count 102,000. Liver chemistry shows AST 57 alkaline phosphatase 218, albumin 2.6. MELD sodium score18 with INR 1.3, creatinine 0.71, sodium 138 and TB 7.4, direct 4.5. Estimated 90-day mortality 3 to 4%. 12/27: Liver chemistry shows improvement in bilirubin, T. bili 5.6, direct 3.92. AST ALT ratio, 2:1. Hypoalbuminemia. 12/28: Liver chemistry shows further improvement in total bilirubin direct bilirubin. Charges/Coding Visit Charges Inpatient E&M: 15066 Subs Hosp L3 12/29/23 1746 <Electronically signed by Johny Friend DO> Cosigner Signature (if applicable): CC: ~ Signed [facility] Work Phone: [phone] 707-614304-26-2024 Progress note Author Harrison Roper [facility] December 29, 2023 1:31pm Note Date/Time December 29, 2023 1:1 3pm [facility] Medical Records Department [address] [place] [address] Progress Note - Hospitalist 12/29/23 1312 MR#: [id number] Acct: [id number] Name: MARY ALICE GA Rep #:[id number] : 1950 73 From: Harrison Hughes PCP: Dr. Khanh Rodriguez MD Status:A DM IN Location: [place] [address] Reason for Visit Reason for Visit: Diagnoses Hepatic failure, unspecified without coma (12/27/23) Unspecified cirrhosis of liver (12/27/23) Gastrointestinal hemorrhage, unspecified (12/27/23) Objective Data Objective Data Vital Signs: Vital Signs Temp Pulse Resp BP Pulse Ox O2 Del Method 98.2 F 58 L 12 163/87 H 100 Room Air 12/29/23 09:03 12/29/23 09:03 12/29/23 09:03 12/29/23 09:03 12/29/23 09:03 12/29/23 09:03 Oxygen Delivery Method Room Air Weight: 157 lb 10.088 oz Body Mass Index (BMI) 27.0 Intake & Output: Intake and Output for Last 24 Hours 12/27/23 12/28/23 12/29/23 23:59 23:59 23:59 Intake Total 1329.33 / 1329.33 4096.40 / 4096.40 2105.42 / 2105.42 Balance 1329.33 / 1329.33 4096.40 / 4096.40 2105.42 / 2105.42 Lab / Micro Data 12/29/23 05:52 12/29/23 05:52 Labs: Laboratory Results - last 24 hr 12/28/23 02:30: Diff Path Review Reviewed 12/29/23 05:52: WBC 4.8, RBC 2.23 L, Hgb 8.2 L, Hct 24.3 L, MCV 109.0 H, MCH 36.8 H, MCHC 33.7, RDW Std Deviation 51.9 H, RDW Coeff of Carlyle 13.1, Plt Count 73L, MPV 9.8, Immature Gran % (Auto) 0.400, Neut % (Auto) 89.6 H, Lymph % (Auto) 7.5 L, Crittenden % (Auto) 2.5, Eos % (Auto) 0.0, Baso % (Auto) 0.0, Absolute Neuts (auto) 4.3, Absolute Lymphs (auto) 0.36 L, Nucleated RBC % 0, Sodium 136, Potassium 4.3, Chloride 110 H, Carbon Dioxide 20.0 L, Anion Gap 6, BUN 13, Creatinine 0.53 L, Estim Creat Clear Calc 61.63, Est GFR (MDRD) Af Amer 146, EstGFR (MDRD) Non-Af 121, BUN/Creatinine Ratio 24.6 H, Glucose 141 H, Calcium 8.0 L, Magnesium 2.1, Total Bilirubin 4.80 H, Direct Bilirubin 3.69 H, AST 66 H, ALT 25, Alkaline Phosphatase 174 H, Total Protein 5.6 L, Albumin 2.3 L, Globulin 3.3 Micro: Microbiology 12/27/23 09:39 Stool Stool Occult Blood (KENDRA) - Final Occult Blood Positive Physical Exam Narrative Seen and examined. No further GI patient had EGD in the morning and esophageal varices were banded Physical exam General: Alert, Oriented x3, Cooperative HEENT: Icterus present/jaundice. Atraumatic, PERRLA, EOMI, Normocephalic Oral: Oral mucosa very dry. No Gingival or Mucosal Lesions/ Ulcerations Neck: Supple, No JVD, Negative Carotid Bruits Chest wall/Lungs: Air entry diminished in bilateral lung bases. No crepitation/rhonchi Cardiovascular: Regular rate, Regular Rhythm, Normal S1, Normal S2, No M/G/R Abdomen: Bowel Sounds Present, Soft, mild distention. Shifting dullness present. Mild ascites. No tenderness. : No dysuria. No renal angle tenderness. No suprapubic tenderness. Extremities: No edema, Capillary Refill Less than 3 Seconds Skin: No rashes, No breakdown Musculoskeletal: No Tenderness to Palpation of Joints or Extremities. ROM full Neurological: Cranial nerves II-XII grossly intact, DTR 2+/4. No acute focal neurological deficit. Psych/Mental Status: Flat affect, anxiety Assessment & Plan Assessment/Plan (1) Decompensated hepatic cirrhosis: (2) Acute upper GI bleeding: PLAN: Plan This is a 73-year-old female with history of decompensated alcoholic cirrhosis came for black tarry stool, jaundice, weak mild dizziness and very thirsty 1. Acute upper GI bleed likely due to esophageal variceal bleed/PHG: Patient isbeing admitted in PCU. Heart rate and blood pressure are controlled. No hypoxia. Patient is clinically dehydrated. She is being discharged with IV fluid normal saline, strict intake and output. H&H 10.1/29.7%.Baseline H&H 11.6/31% H&H every 6 hourly. IV PPI drip after bolus, octreotide drip and ceftriaxone. GI consulted. Plan for EGD tomorrow a.m. 12/27: Verbally discussed with Dr. Davila. Patient has esophageal varices and those were banded. Official report is still pending. 12/28: Hemodynamically patient remained stable blood pressure went up to 163/87 therefore octreotide drip discontinued. Pantoprazole PPI IV infusion changed tobolus 40 mill every 12 hourly 2. Acute blood loss anemia secondary to severe upper GI bleed: Patient baselinehemoglobin is around 11 to 12 g. She was admitted with hemoglobin 10.1 and dropped to 7.9 g/dL. IV fluid half-normal saline with 40 mEq of KCl at 100 mill per hour. Patient blood pressure is systolic 120s. Repeat H&H came 8.2/24.7% therefore no indication for PRBC transfusion yet. Hemodynamically blood pressure 127/64 heart rate 67. 12/28: H&H 8.2/24.3%. IV iron infusion ordered Electrolyte abnormality: Hypokalemia and hypomagnesemia: Patient on his spironolactone at home. Continued. IV magnesium sulfate ordered. 12/28: Repeat labs shows magnesium normal, phosphorus normal and potassium 4.3 normal therefore electrolyte abnormality resolved. 3. Decompensated alcoholic cirrhosis with ascites, portal hypertension, varicealbleed and jaundice: Liver chemistry reviewed. Platelet count 102,000. Liver chemistry shows AST 57 alkaline phosphatase 218, albumin 2.6. MELD sodium score18 with INR 1.3, creatinine 0.71, sodium 138 and TB 7.4, direct 4.5. Estimated 90-day mortality 3 to 4%. 12/27: Liver chemistry shows improvement in bilirubin, T. bili 5.6, direct 3.92. AST ALT ratio, 2:1. Hypoalbuminemia. 12/28: Liver chemistry shows further improvement in total bilirubin direct bilirubin. 3. Chronic HFpEF with moderately severe pulmonary hypertension: 2D echo in November 2023 EF 65%, normal RV size and systolic function. LA mildly enlarged. RVSP 50 mL trivial TR suggestive of moderate pulmonary hypertension. Patient onfurosemide and spironolactone at home which is held. 12/28: Furosemide spironolactone resumed. 4. Hypertension, history of right leg non pressure ulcer, right GSV chronic venous insufficiency. Patient had right GSV successful ablation in the past byDr. Galaviz, no acute issues. BP normal. 5. Chronic GERD, hypokalemia, osteoporosis and history of breast cancer: Patient on anastrozole.Patient follows [facility]. On alendronate continued Living will/advanced directive/end of life care: Patient does not living will or advanced directive. Her is power of admitted attorneys for health. After discussion of benefits/risks procedures involved with full code, DNR CC arrest and DNR CC, the patient opted for full code. Patient does want artificial life support including intubation, tube feed, ventilator and/chest compression, central venous catheter, vasopressor and DC shock if needed Total time spent in [id number] encounter in discussion of advanced directive 17 minutes. Clinical Impression(s) from Imaging Studies Abdomen/Pelvis CT 12/27/23 10:14 IMPRESSION: Findings suggestive of cirrhosis. Fatty infiltration of the liver. Small gallstones with mild thickening of the gallbladder wall. Small amount of ascites. Sigmoid diverticulosis. Small umbilical hernia containing fat. Charges/Coding Visit Charges Inpatient E&M: 89986 Subs Hosp L2 12/29/23 1337 <Electronically signed by Harrison Roper MD> Cosigner Signature (if applicable): CC: ~ Signed [facility] Work Phone: [phone] Progress note Author Harrison Roper [facility] December 28, 2023 3:51pm Note Date/Time December 28, 2023 8:1 9am [facility] Medical Records Department [address] [place] [address] Progress Note - Hospitalist 12/28/23813 MR#: [id number] Acct: [id number] Name: MARY ALICE GA Rep #:[id number] : 1950 73 From: Harrison Hughes PCP: Dr. Khanh Rodriguez MD Status:A DM IN Location: [place] [address] Reason for Visit Reason for Visit: Diagnoses Hepatic failure, unspecified without coma (12/27/23) Unspecified cirrhosis of liver (12/27/23) Gastrointestinal hemorrhage, unspecified (12/27/23) Objective Data Objective Data Vital Signs: Vital Signs Temp Pulse Resp BP Pulse Ox O2 Del Method 98.3 F 73 12 124/54 H 97 Room Air 12/28/23 07:51 12/28/23 07:51 12/28/23 07:51 12/28/23 07:51 12/28/23 07:51 12/28/23 07:51 Oxygen Delivery Method Room Air Weight: 150 lb 12.739 oz Body Mass Index (BMI) 25.9 Intake & Output: Intake and Output for Last 24 Hours 12/26/23 12/27/23 12/28/23 23:59 23:59 23:59 Intake Total 1329.33 / 1329.33 1038.16 / 1038.16 Balance 1329.33 / 1329.33 1038.16 / 1038.16 Lab / Micro Data 12/28/23 08:35 12/28/23 02:30 Labs: Laboratory Results - last 24 hr 12/27/23 09:25: Urine Color Yellow, Urine Clarity Sl. Cloudy, Urine pH 7.0, Ur Specific Ell[place] 1.005, Urine Protein 15 H, Urine Glucose (UA) Normal, Urine Ketones 5 H, Urine Occult Blood 10 H, Urine Nitrite Negative, Urine Bilirubin 1 H, Urine Urobilinogen 4 H, Ur Leukocyte Esterase 25 H, Urine RBC 0-5 SEEN, UrineWBC 0-5 SEEN, Ur Squamous Epith Cells 0 SEEN, Urine Bacteria 0 SEEN, Urine Mucus0 SEEN 12/27/23 09:30: WBC 8.4, RBC 2.78 L, Hgb 10.1 L, Hct 29.7 L, MCV 106.8 H, MCH 36.3 H, MCHC 34.0, RDW Std Deviation 50.0 H, RDW Coeff of Carlyle 12.8, Plt Count 102 L, MPV 9.5, Immature Gran % (Auto) 0.500, Neut % (Auto) 73.0 H, Lymph % (Auto) 19.2, Crittenden % (Auto) 6.7, Eos % (Auto) 0.4, Baso % (Auto) 0.2, Absolute Neuts (auto) 6.1, Absolute Lymphs (auto) 1.61, Nucleated RBC % 0, PT 15.7 H, INR1.3, APTT 32.0, Sodium 138, Potassium 3.2 L, Chloride 100, Carbon Dioxide 30.0, Anion Gap 8, BUN 36 H, Creatinine 0.71, Est GFR (MDRD) Af Amer 104, Est GFR (MDRD) Non-Af 86, BUN/Creatinine Ratio 50.8 H, Glucose 99, Calcium 9.6, Phosphorus 3.5, Magnesium 1.5 L, Total Bilirubin 7.40 H, Direct Bilirubin 4.50 H, AST 57 H, ALT 23, Alkaline Phosphatase 218 H, Total Protein 6.2 L, Albumin 2.6 L, Globulin 3.6, Lipase 31 12/27/23 14:35: Hgb 9.2 L, Hct 27.1 L 12/27/23 20:29: Hgb 8.7 L, Hct 24.8 L 12/28/23 02:30: WBC 4.1 L, RBC 2.17 L, Hgb 7.9 L, Hct 23.3 L, MCV 107.4 H, MCH 36.4 H, MCHC 33.9, RDW Std Deviation 52.9 H, RDW Coeff of Carlyle 13.4, Plt Count 72L, MPV 8.8, Immature Gran % (Auto) 0.200, Neut % (Auto) 69.7, Lymph % (Auto) 22.8, Crittenden % (Auto) 5.3, Eos % (Auto) 1.5, Baso % (Auto) 0.5, Absolute Neuts (auto) 2.9, Absolute Lymphs (auto) 0.94, Nucleated RBC % 0, Differential CommentSCANNED, Diff Path Review May foll, Platelet Estimate MOD DEC, Polychromasia 1+,Anisocytosis 2+, Macrocytosis 2+, Ovalocytes RARE, Downey-Ranchester Bodies RARE, PT 16.9 H, INR 1.4, Sodium 141, Potassium 3.0 L, Chloride 111 H, Carbon Dioxide 24.0, Anion Gap 6, BUN 23 H, Creatinine 0.56, Estim Creat Clear Calc 59.75, Est GFR (MDRD) Af Amer 138, Est GFR (MDRD) Non-Af 114, BUN/Creatinine Ratio 41.4 H, Glucose 98, Calcium 8.0 L, Phosphorus 3.2, Magnesium 1.5 L, Total Bilirubin 5.60H, Direct Bilirubin 3.92 H, AST 47 H, ALT 21, Alkaline Phosphatase 171 H, Total Protein 5.0 L, Albumin 2.1 L, Globulin 2.9 Micro: Microbiology 12/27/23 09:39 Stool Stool Occult Blood (KENDRA) - Final Occult Blood Positive Radiography Diagnostic Testing: Radiology Impression Abdomen/Pelvis CT 12/27/23 10:14 IMPRESSION: Findings suggestive of cirrhosis. Fatty infiltration of the liver. Small gallstones with mild thickening of the gallbladder wall. Small amount of ascites. Sigmoid diverticulosis. Small umbilical hernia containing fat. Electronically Signed: Nahum Kelley MD at 10:54 EDT , Physical Exam Narrative Seen and examined. Patient had drop in hemoglobin in the morning but repeat once about 8 g therefore PRBC not given. Patient had EGD in the morning and esophageal variceswere banded Physical exam General: Alert, Oriented x3, Cooperative HEENT: Icterus present/jaundice. Atraumatic, PERRLA, EOMI, Normocephalic Oral: Oral mucosa very dry. No Gingival or Mucosal Lesions/ Ulcerations Neck: Supple, No JVD, Negative Carotid Bruits Chest wall/Lungs: Air entry diminished in bilateral lung bases. No crepitation/rhonchi Cardiovascular: Regular rate, Regular Rhythm, Normal S1, Normal S2, No M/G/R Abdomen: Bowel Sounds Present, Soft, mild distention. Shifting dullness present. Mild ascites. No tenderness. : No dysuria. No renal angle tenderness. No suprapubic tenderness. Extremities: No edema, Capillary Refill Less than 3 Seconds Skin: No rashes, No breakdown Musculoskeletal: No Tenderness to Palpation of Joints or Extremities. ROM full Neurological: Cranial nerves II-XII grossly intact, DTR 2+/4. No acute focal neurological deficit. Psych/Mental Status: Flat affect, anxiety Assessment & Plan Assessment/Plan (1) Decompensated hepatic cirrhosis: (2) Acute upper GI bleeding: PLAN: Plan This is a 73-year-old female with history of decompensated alcoholic cirrhosis came for black tarry stool, jaundice, weak mild dizziness and very thirsty 1. Acute upper GI bleed likely due to esophageal variceal bleed/PHG: Patient isbeing admitted in PCU. Heart rate and blood pressure are controlled. No hypoxia. Patient is clinically dehydrated. She is being discharged with IV fluid normal saline, strict intake and output. H&H 10.1/29.7%.Baseline H&H 11.6/31% H&H every 6 hourly. IV PPI drip after bolus, octreotide drip and ceftriaxone. GI consulted. Plan for EGD tomorrow a.m. 12/27: Verbally discussed with Dr. Davila. Patient has esophageal varices and those were banded. Official report is still pending. 2. Acute blood loss anemia secondary to severe upper GI bleed: Patient baselinehemoglobin is around 11 to 12 g. She was admitted with hemoglobin 10.1 and dropped to 7.9 g/dL. IV fluid half-normal saline with 40 mEq of KCl at 100 mill per hour. Patient blood pressure is systolic 120s. Repeat H&H came 8.2/24.7% therefore no indication for PRBC transfusion yet. Hemodynamically blood pressure 127/64 heart rate 67. Electrolyte abnormality: Hypokalemia and hypomagnesemia: Patient on his spironolactone at home. Continued. IV magnesium sulfate ordered. 3. Decompensated alcoholic cirrhosis with ascites, portal hypertension, varicealbleed and jaundice: Liver chemistry reviewed. Platelet count 102,000. Liver chemistry shows AST 57 alkaline phosphatase 218, albumin 2.6. MELD sodium score18 with INR 1.3, creatinine 0.71, sodium 138 and TB 7.4, direct 4.5. Estimated 90-day mortality 3 to 4%. 12/27: Liver chemistry shows improvement in bilirubin, T. bili 5.6, direct 3.92. AST ALT ratio, 2:1. Hypoalbuminemia. 3. Chronic HFpEF with moderately severe pulmonary hypertension: 2D echo in November 2023 EF 65%, normal RV size and systolic function. LA mildly enlarged. RVSP 50 mL trivial TR suggestive of moderate pulmonary hypertension. Patient onfurosemide and spironolactone at home which is held. 4. Hypertension, history of right leg non pressure ulcer, right GSV chronic venous insufficiency. Patient had right GSV successful ablation in the past byDr. Galaviz, no acute issues. BP normal. 5. Chronic GERD, hypokalemia, osteoporosis and history of breast cancer: Patient on anastrozole.Patient follows [facility]. On alendronate continued Living will/advanced directive/end of life care: Patient does not living will or advanced directive. Her is power of admitted attorneys for health. After discussion of benefits/risks procedures involved with full code, DNR CC arrest and DNR CC, the patient opted for full code. Patient does want artificial life support including intubation, tube feed, ventilator and/chest compression, central venous catheter, vasopressor and DC shock if needed Total time spent in [id number] encounter in discussion of advanced directive 17 minutes. Microbiology Past 73 Hours 12/27/23 09:39 Stool Stool Occult Blood (KENDRA) - Final Occult Blood Positive Laboratory Results 12/27/23 20:29: Hgb 8.7 L, Hct 24.8 L 12/28/23 02:30: WBC 4.1 L, RBC 2.17 L, Hgb 7.9 L, Hct 23.3 L, MCV 107.4 H, MCH 36.4 H, MCHC 33.9, RDW Std Deviation 52.9 H, RDW Coeff of Carlyle 13.4, Plt Count 72L, MPV 8.8, Immature Gran % (Auto) 0.200, Neut % (Auto) 69.7, Lymph % (Auto) 22.8, Cr[place]enden % (Auto) 5.3, Eos % (Auto) 1.5, Baso % (Auto) 0.5, Absolute Neuts (auto) 2.9, Absolute Lymphs (auto) 0.94, Nucleated RBC % 0, Differential CommentSCANNED, Diff Path Review May , Platelet Estimate MOD DEC, Polychromasia 1+,Anisocytosis 2+, Macrocytosis 2+, Ovalocytes RARE, Downey-Ranchester Bodies RARE, PT 16.9 H, INR 1.4, Sodium 141, Potassium 3.0 L, Chloride 111 H, Carbon Dioxide 24.0, Anion Gap 6, BUN 23 H, Creatinine 0.56, Estim Creat Clear Calc 59.75, Est GFR (MDRD) Af Amer 138, Est GFR (MDRD) Non-Af 114, BUN/Creatinine Ratio 41.4 H, Glucose 98, Calcium 8.0 L, Phosphorus 3.2, Magnesium 1.5 L, Total Bilirubin 5.60H, Direct Bilirubin 3.92 H, AST 47 H, ALT 21, Alkaline Phosphatase 171 H, Total Protein 5.0 L, Albumin 2.1 L, Globulin 2.9 12/28/23 08:35: Hgb 8.2 L, Hct 24.7 L 12/28/23 08:45: Blood Type A POSITIVE, Antibody Screen NEGATIVE, Crossmatch See Detail M Clinical Impression(s) from Imaging Studies Abdomen/Pelvis CT 12/27/23 10:14 IMPRESSION: Findings suggestive of cirrhosis. Fatty infiltration of the liver. Small gallstones with mild thickening of the gallbladder wall. Small amount of ascites. Sigmoid diverticulosis. Small umbilical hernia containing fat. Charges/Coding Visit Charges Inpatient E&M: 55941 Subs Hosp L2 12/28/23 1551 <Electronically signed by Harrison Roper MD> Cosigner Signature (if applicable): CC: ~ Signed [facility] Work Phone: [phone] [facility] Discharge summary Author Yair Lazcano [facility] December 27, 2023 3:34pm Note Date/Time December 27, 2023 9:1 5am [facility] Medical Records Department [address] [place] [address] Emergency Department Summary 12/27/23 MR#: [id number] Acct: [id number] Name: MARY ALICE GA Rep #:[id number] : 1950 73 From: Yari Luna PCP: Dr. Khanh Rodriguez MD Status:A DM IN Location: [place] [id number]- 1 HPI History of Present Illness Chief Complaint: GI Bleed Informant: patient and family Narrative Narrative: 73-year-old female presenting to the emergency room with black tarry stools and skin changes. Patient states she has a history of alcoholic cirrhosis. She states that about a week ago she was placed on prednisone about 60 mg a day for sores of her right leg. Patient states that on Monday she went to [employer] and picked up an eggroll chicken and some lo mein out of the warm food section. States she went home and ate it. She became very thirsty. On Monday she developed black tarry diarrhea that was quite frequent. She states that she began to swell. She states that during the night she did not have any further diarrhea but that it started again today. She notes that her eyes and her skin appear yellow. is currently in the hospital in [place] with a broken femur and is being transferred to a rehab facility today. She denies any abdominal pain but states that her abdomen is generally sore. Patient does takepantoprazole daily. Patient states that they typically will winter in [place] where she sees a die tripper. She states that this is the first year they did not go back. [facility] Medical History Abnormal mammogram of left breast Age-related physical debility Alcohol use Arthritis Back pain Bleeding ulcer Breast cancer Broken hip Cancer Carotid stenosis, right Cellulitis of right leg CHF (congestive heart failure) Cirrhosis Dermatitis Dyspnea Elevated liver enzymes Encounter for education GERD (gastroesophageal reflux disease) High cholesterol History of edema History of skin cancer History of ulceration Hx of staphylococcal infection Hypertension Hypokalemia Hyponatremia Hypotension Injury of back Left breast lump Left hip pain Non-smoker Open wound Osteoporosis Post-menopausal Preoperative evaluation to rule out surgical contraindication Pulmonary embolism Screening for thyroid disorder Skin cancer Squamous cell skin cancer Ulcer of right leg Umbilical hernia Varicose veins of both lower extremities Vertigo Wears glasses Home Medications pantoprazole 40 mg tablet,delayed release 40 mg PO DAILY GERD #90 tabs 04/22/22 [Rx Last Taken 12/25/23] compress.stocking,knee,reg,lrg #2 ea 05/09/23 [Rx Last Taken Unknown] acetaminophen 500 mg capsule 500 mg PO Q6H PRN pain 06/08/23 [History Last Taken Unknown] anastrozole 1 mg tablet 1 mg PO DAILY #90 tabs 10/19/23 [Rx Last Taken 12/25/23] potassium chloride 20 mEq tablet,extended release(part/cryst) 20 meq PO BID SUPPLEMENT #90 tabs 11/03/23 [Rx Last Taken 12/25/23] furosemide 40 mg tablet 40 mg PO DAILY DIURETIC #30 tabs 12/15/23 [Rx Last Taken 12/25/23] alendronate 70 mg tablet (Fosamax) 70 mg PO MO JOINT SUPPORT 12/27/23 [History Last Taken 12/25/23] calcium carbonate 600 mg-vitamin D3 5 mcg (200 unit) tablet (Calcium 600 + D(3))1 tab PO BID 12/27/23 [History Last Taken 12/25/23] nadolol 20 mg tablet 20 mg PO DAILY BP 12/27/23 [History Last Taken 12/25/23] spironolactone 50 mg tablet 50 mg PO DAILY 12/27/23 [History Last Taken 12/25/23] Allergy/AdvReac Type Severity Reaction Status Date / Time No Known Allergies Allergy Verified 12/27/23 08:47 Family History Mother Alzheimer disease Father Heart disease Diabetes Surgical History History of hysterectomy History of knee replacement History of left hip replacement History of left mastectomy Hx of tonsillectomy Status post Mohs surgery Social History Smoking Status: Never smoker alcohol intake: current substance use type: does not use ROS ROS ED Constitutional Constitutional ED: Reports chills; Denies fever(s) or weight loss Eyes Eyes: Denies change in vision or diplopia ENT ENT ED: Denies ear pain, rhinorrhea or sore throat Cardiovascular Cardiovascular: Denies chest pain, orthopnea, palpitations or racing heartbeat Respiratory/Chest Respiratory/Chest: Denies cough, dyspnea or orthopnea Gastrointestinal Gastrointestinal: Reports diarrhea; Denies abdominal pain, nausea or vomiting Genitourinary Genitourinary ED: Denies dysuria, hematuria or urinary frequency Musculoskeletal Musculoskeletal: Denies arthralgias or myalgias Integumentary Reports other Details: Yellowing of eyes and skin ; Denies abscess or rash Neurologic Neurologic: Denies headache(s) or weakness Psychiatric Psychiatric: Denies anxiety, depression, suicidal ideation or suicidal thoughts Endocrine Endocrinology: Denies polydipsia, polyphagia or polyuria Allergic/Immunologic Allergic/Immunologic ED: Denies mouth swelling, tongue swelling or urticaria EXAM Physical Exam Const Vital Signs: 12/27/23 08:47 12/27/23 10:46 12/27/23 12:00 Temperature 96.7 F L 98 F 98.1 F Temperature Source Temporal Oral Oral Pulse Rate 88 86 82 Respiratory Rate 16 15 16 Blood Pressure 137/74 H 139/82 H 128/64 H Blood Pressure Mean 95 101 85 Pulse Ox 100 97 98 Oxygen Delivery Method Room Air Room Air Room Air Positive well nourished and well developed General Appearance ED: well developed HEENT Reports normocephalic, head/scalp atraumatic and moist mucous membranes Eyes PERRL and EOMs intact bilaterally General Eye ED: Yes scleral icterus Neck no lymphadenopathy, supple and no JVD Resp normal respiratory effort and clear to auscultation bilaterally Cardio regular rate, regular rhythm and no murmurs GI normal to inspection, nondistended, normoactive bowel sounds and non-tender Palpation: soft Back/Spine no CVA tenderness and normal ROM Extremity Extremity Narrative: Right leg is compression wrapped to the level of the knee. Neuro oriented x3 and CN's II-XII intact bilaterally Sensorium / Orientation: alert Motor Exam: strength 5/5 throughout Psych mental status grossly normal Mood & Affect: Negative for depressed or tearful Skin no rashes or lesions noted and no wounds MDM MDM MDM Narrative Medical decision making narrative: White count 8.4 with a hemoglobin of 10.1 and platelet count of 102. INR 1.3 with a PTT of 32 BMP with a BUN of 36 creatinine 0.71. Total bilirubin 7.4 direct 4.5 AST 57 ALT 23 alk phos 218 and an albumin of 2.6. Urinalysis is negative for infection. Patient was placed on a Protonix drip after bolus as well as octreotide and Rocephin. CT of the abdomen pelvis was obtained which demonstrated liver cirrhosis with a mild amount of ascites. There is noted gallstones with gallbladder wall thickening however the patient is not tender inthe right upper quadrant so I doubt cholecystitis. I spoke with Dr. Davila fromgastroenterology. plan is admission to the hospital. At the current time she ishemodynamically stable and does not need blood transfusion. History & Record Review Discussion w/independent historian: Patient and Family Lab Data Attestation: I reviewed the patient's lab results. Labs: Laboratory Results - last 24 hr 12/27/23 12/27/23 09:25 09:30 WBC 8.4 RBC 2.78 L Hgb 10.1 L Hct 29.7 L MCV 106.8 H MCH 36.3 H MCHC 34.0 RDW Std Deviation 50.0 H RDW Coeff of Carlyle 12.8 Plt Count 102 L MPV 9.5 Immature Gran % (Auto) 0.500 Neut % (Auto) 73.0 H Lymph % (Auto) 19.2 Crittenden % (Auto) 6.7 Eos % (Auto) 0.4 Baso % (Auto) 0.2 Absolute Neuts (auto) 6.1 Absolute Lymphs (auto) 1.61 Nucleated RBC % 0 PT 15.7 H INR 1.3 APTT 32.0 Sodium 138 Potassium 3.2 L Chloride 100 Carbon Dioxide 30.0 Anion Gap 8 BUN 36 H Creatinine 0.71 Est GFR (MDRD) Af Amer 104 Est GFR (MDRD) Non-Af 86 BUN/Creatinine Ratio 50.8 H Glucose 99 Calcium 9.6 Total Bilirubin 7.40 H Direct Bilirubin 4.50 H AST 57 H ALT 23 Alkaline Phosphatase 218 H Total Protein 6.2 L Albumin 2.6 L Globulin 3.6 Lipase 31 Urine Color Yellow Urine Clarity Sl. Cloudy Urine pH 7.0 Ur Specific Elliston 1.005 Urine Protein 15 H Urine Glucose (UA) Normal Urine Ketones 5 H Urine Occult Blood 10 H Urine Nitrite Negative Urine Bilirubin 1 H Urine Urobilinogen 4 H Ur Leukocyte Esterase 25 H Urine RBC 0-5 SEEN Urine WBC 0-5 SEEN Ur Squamous Epith Cells 0 SEEN Urine Bacteria 0 SEEN Urine Mucus 0 SEEN Radiography Diagnostic Testing: Clinical Impression(s) from Imaging Studies Abdomen/Pelvis CT 12/27/23 10:14 IMPRESSION: Findings suggestive of cirrhosis. Fatty infiltration of the liver. Small gallstones with mild thickening of the gallbladder wall. Small amount of ascites. Sigmoid diverticulosis. Small umbilical hernia containing fat. Electronically Signed: Nahum Kelley MD at 10:54 EDT , Management Discussion w/another healthcare provider: Hospitalist (Dr Roper) and Agile Qa Tester (GI Dr Lola) Discharge Plan Dx/Rx/DC Orders Clinical Impression: Decompensated hepatic cirrhosis, Jaundice, Acute upper GI bleeding, Ascites, Thrombocytopenia Disposition Disposition: [facility] What to do if you have Problems For any increased pain, shortness of breath, bleeding, nausea or vomiting, chestpain, or any unexpected problems, contact your Primary Care Provider. Call [facility] ([phone]) or report to the closest Emergency Room. Call 911 if necessary. 12/27/23 1534 <Electronically signed by Yair Lazcano DO> Cosigner Signature (if applicable): CC: Dr. Khanh Rodriguez MD ~ Signed [facility] Work Phone: [phone] 435-651404-24-2024 History and physical note Author Harrison Roper [facility] December 27, 2023 1:37pm Note Date/Time December 27, 2023 1:3 1pm [facility] Medical Records Department [address] [place] [id number] H&P Exam - Hospitalist 12/27/23 1317 MR#: [id number] Acct: [id number] Name: MARY ALICE GA Rep #:[id number] : 1950 73 From: Harrison Hughes PCP: Dr. Khanh Rodriguez MD Status:A DM IN Location: [place] [address] HPI - General General Date of Admission: 12/27/23 Date of Service: 12/27/23 Chief Complaint: Black tarry stool since yesterday, jaundice noticed yesterday HPI Narrative MARY ALICE GA, is a 73 F with history of alcoholic cirrhosis came to ED for black tarry stool started yesterday. She states she has been going from 8:30 AMto 8:30 PM every 15 to 20 minutes and felt very thirsty been drinking water and Gatorade. Patient also felt mildly dizzy and very weak. She noticed jaundiced yesterday but seems she has been jaundiced for some time. Patient also has abdominal swelling/edema ascites, gradually increasing for last 3 to 4 months. Mild generalized abdominal discomfort and tenderness but denies pain. No fever Patient is still drinking alcohol states of glass of wine with Sprite last drinklast Monday. She did not tell me exact frequency or pattern drinking alcohol even on asking. [facility] Medical History Abnormal mammogram of left breast Age-related physical debility Alcohol use Arthritis Back pain Bleeding ulcer Breast cancer Broken hip Cancer Carotid stenosis, right Cellulitis of right leg CHF (congestive heart failure) Cirrhosis Dermatitis Dyspnea Elevated liver enzymes Encounter for education GERD (gastroesophageal reflux disease) High cholesterol History of edema History of skin cancer History of ulceration Hx of staphylococcal infection Hypertension Hypokalemia Hyponatremia Hypotension Injury of back Left breast lump Left hip pain Non-smoker Open wound Osteoporosis Post-menopausal Preoperative evaluation to rule out surgical contraindication Pulmonary embolism Screening for thyroid disorder Skin cancer Squamous cell skin cancer Ulcer of right leg Umbilical hernia Varicose veins of both lower extremities Vertigo Wears glasses Home Medications pantoprazole 40 mg tablet,delayed release 40 mg PO DAILY GERD #90 tabs 04/22/22 [Rx Last Taken 12/25/23] compress.stocking,knee,reg,lrg #2 ea 05/09/23 [Rx Last Taken Unknown] acetaminophen 500 mg capsule 500 mg PO Q6H PRN pain 06/08/23 [History Last Taken Unknown] anastrozole 1 mg tablet 1 mg PO DAILY #90 tabs 10/19/23 [Rx Last Taken 12/25/23] potassium chloride 20 mEq tablet,extended release(part/cryst) 20 meq PO BID SUPPLEMENT #90 tabs 11/03/23 [Rx Last Taken 12/25/23] furosemide 40 mg tablet 40 mg PO DAILY DIURETIC #30 tabs 12/15/23 [Rx Last Taken 12/25/23] alendronate 70 mg tablet (Fosamax) 70 mg PO MO JOINT SUPPORT 12/27/23 [History Last Taken 12/25/23] calcium carbonate 600 mg-vitamin D3 5 mcg (200 unit) tablet (Calcium 600 + D(3))1 tab PO BID 12/27/23 [History Last Taken 12/25/23] nadolol 20 mg tablet 20 mg PO DAILY BP 12/27/23 [History Last Taken 12/25/23] spironolactone 50 mg tablet 50 mg PO DAILY 12/27/23 [History Last Taken 12/25/23] Allergy/AdvReac Type Severity Reaction Status Date / Time No Known Allergies Allergy Verified 12/27/23 08:47 Family History Mother Alzheimer disease Father Heart disease Diabetes Surgical History History of hysterectomy History of knee replacement History of left hip replacement History of left mastectomy Hx of tonsillectomy Status post Mohs surgery Social History Smoking Status: Never smoker alcohol intake: current substance use type: does not use ROS ROS Narrative Constitutional: Reports fatigue and weakness. No fever. HEENT: Reports systems reviewed and no addt'l complaints, except as documented Respiratory/Chest: No acute shortness of breath or respiratory distress or wheezing. Mild dyspnea on exertion from weakness CVS: No chest pain pressure or tightness Gastrointestinal: Black tarry stool for last 2 days. Mild abdominal discomfort. Jaundice Genitourinary: Denies burning urination or new urinary tract symptoms Musculoskeletal: Denies acute joint pain or limited range of motion. No acute injury Neurologic: Denies seizure-like symptoms. skin: No ulcer. No rash Endocrinology: Reports systems reviewed and no addt'l complaints, except as documented Hematologic/Lymphatic: Reports systems reviewed and no addt'l complaints, exceptas documented Rest 14 ROS are negative except as mentioned in HPI Vital Signs Vital Signs Vital Signs: 12/27/23 08:47 12/27/23 10:46 12/27/23 12:00 Temperature 96.7 F L 98 F 98.1 F Temperature Source Temporal Oral Oral Pulse Rate 88 86 82 Respiratory Rate 16 15 16 Blood Pressure 137/74 H 139/82 H 128/64 H Blood Pressure Mean 95 101 85 Pulse Ox 100 97 98 Oxygen Delivery Method Room Air Room Air Room Air Physical Exam Narrative General: Alert, Oriented x3, Cooperative HEENT: Icterus present. Atraumatic, PERRLA, EOMI, Normocephalic Oral: Oral mucosa very dry. No Gingival or Mucosal Lesions/ Ulcerations Neck: Supple, No JVD, Negative Carotid Bruits Chest wall/Lungs: Air entry diminished in bilateral lung bases. No crepitation/rhonchi Cardiovascular: Regular rate, Regular Rhythm, Normal S1, Normal S2, No M/G/R Abdomen: Bowel Sounds Present, Soft, mild distention. Shifting dullness present. Mild tenderness on left lower quadrant but no rebound tenderness. : No dysuria. No renal angle tenderness. No suprapubic tenderness. Extremities: No edema, Capillary Refill Less than 3 Seconds Skin: No rashes, No breakdown Musculoskeletal: No Tenderness to Palpation of Joints or Extremities. ROM full Neurological: Cranial nerves II-XII grossly intact, DTR 2+/4. No acute focal neurological deficit. Psych/Mental Status: Flat affect, anxiety Results Lab / Micro Data 12/27/23 09:30 12/27/23 09:30 Labs: Laboratory Results - last 24 hr 12/27/23 09:25: Urine Color Yellow, Urine Clarity Sl. Cloudy, Urine pH 7.0, Ur Specific Elliston 1.005, Urine Protein 15 H, Urine Glucose (UA) Normal, Urine Ketones 5 H, Urine Occult Blood 10 H, Urine Nitrite Negative, Urine Bilirubin 1 H, Urine Urobilinogen 4 H, Ur Leukocyte Esterase 25 H, Urine RBC 0-5 SEEN, UrineWBC 0-5 SEEN, Ur Squamous Epith Cells 0 SEEN, Urine Bacteria 0 SEEN, Urine Mucus0 SEEN 12/27/23 09:30: WBC 8.4, RBC 2.78 L, Hgb 10.1 L, Hct 29.7 L, MCV 106.8 H, MCH 36.3 H, MCHC 34.0, RDW Std Deviation 50.0 H, RDW Coeff of Carlyle 12.8, Plt Count 102 L, MPV 9.5, Immature Gran % (Auto) 0.500, Neut % (Auto) 73.0 H, Lymph % (Auto) 19.2, Crittenden % (Auto) 6.7, Eos % (Auto) 0.4, Baso % (Auto) 0.2, Absolute Neuts (auto) 6.1, Absolute Lymphs (auto) 1.61, Nucleated RBC % 0, PT 15.7 H, INR1.3, APTT 32.0, Sodium 138, Potassium 3.2 L, Chloride 100, Carbon Dioxide 30.0, Anion Gap 8, BUN 36 H, Creatinine 0.71, Est GFR (MDRD) Af Amer 104, Est GFR (MDRD) Non-Af 86, BUN/Creatinine Ratio 50.8 H, Glucose 99, Calcium 9.6, Total Bilirubin 7.40 H, Direct Bilirubin 4.50 H, AST 57 H, ALT 23, Alkaline Phosphatase 218 H, Total Protein 6.2 L, Albumin 2.6 L, Globulin 3.6, Lipase 31 Micro: Microbiology 12/27/23 09:39 Stool Stool Occult Blood (KENDRA) - Final Occult Blood Positive Imaging Radiology Impression Abdomen/Pelvis CT 12/27/23 10:14 IMPRESSION: Findings suggestive of cirrhosis. Fatty infiltration of the liver. Small gallstones with mild thickening of the gallbladder wall. Small amount of ascites. Sigmoid diverticulosis. Small umbilical hernia containing fat. Electronically Signed: Nahum Kelley MD at 10:54 EDT , Assessment & Plan Assessment/Plan (1) Decompensated hepatic cirrhosis: (2) Acute upper GI bleeding: PLAN: Plan This is a 73-year-old female with history of decompensated alcoholic cirrhosis came for black tarry stool, jaundice, weak mild dizziness and very thirsty 1. Acute upper GI bleed likely due to esophageal variceal bleed/PHG: Patient isbeing admitted in PCU. Heart rate and blood pressure are controlled. No hypoxia. Patient is clinically dehydrated. She is being discharged with IV fluid normal saline, strict intake and output. H&H 10.1/29.7%.Baseline H&H 11.6/31% H&H every 6 hourly. IV PPI drip after bolus, octreotide drip and ceftriaxone. GI consulted. Plan for EGD tomorrow a.m. Mild hypokalemia, potassium getting replaced. Serum magnesium and phosphorus are 2. Decompensated alcoholic cirrhosis with ascites, portal hypertension, variceal bleed and jaundice: Liver chemistry reviewed. Platelet count 102,000. Liver chemistry shows AST 57 alkaline phosphatase 218, albumin 2.6. MELD sodiumscore 18 with INR 1.3, creatinine 0.71, sodium 138 and TB 7.4, direct 4.5. Estimated 90-day mortality 3 to 4%. 3. Chronic HFpEF with moderately severe pulmonary hypertension: 2D echo in November 2023 EF 65%, normal RV size and systolic function. LA mildly enlarged. RVSP 50 mL trivial TR suggestive of moderate pulmonary hypertension. Patient onfurosemide and spironolactone at home which is held. 4. Hypertension, history of right leg nonpressure ulcer, right GSV chronic venous insufficiency. Patient had right GSV successful ablation in the past byDr. Galaviz, no acute issues. BP normal. 5. Chronic GERD, hypokalemia, osteoporosis and history of breast cancer: Patient on anastrozole.Patient follows [facility]. On alendronate continued Living will/advanced directive/end of life care: Patient does not living will or advanced directive. Her is power of admitted attorneys for health. After discussion of benefits/risks procedures involved with full code, DNR CC arrest and DNR CC, the patient opted for full code. Patient does want artificial life support including intubation, tube feed, ventilator and/chest compression, central venous catheter, vasopressor and DC shock if needed Total time spent in [id number] encounter in discussion of advanced directive 17 minutes. Microbiology Past 73 Hours 12/27/23 09:39 Stool Stool Occult Blood (KENDRA) - Final Occult Blood Positive Laboratory Results 12/27/23 09:25: Urine Color Yellow, Urine Clarity Sl. Cloudy, Urine pH 7.0, Ur Specific Elliston 1.005, Urine Protein 15 H, Urine Glucose (UA) Normal, Urine Ketones 5 H, Urine Occult Blood 10 H, Urine Nitrite Negative, Urine Bilirubin 1 H, Urine Urobilinogen 4 H, Ur Leukocyte Esterase 25 H, Urine RBC 0-5 SEEN, UrineWBC 0-5 SEEN, Ur Squamous Epith Cells 0 SEEN, Urine Bacteria 0 SEEN, Urine Mucus0 SEEN 12/27/23 09:30: WBC 8.4, RBC 2.78 L, Hgb 10.1 L, Hct 29.7 L, MCV 106.8 H, MCH 36.3 H, MCHC 34.0, RDW Std Deviation 50.0 H, RDW Coeff of Carlyle 12.8, Plt Count 102 L, MPV 9.5, Immature Gran % (Auto) 0.500, Neut % (Auto) 73.0 H, Lymph % (Auto) 19.2, Crittenden % (Auto) 6.7, Eos % (Auto) 0.4, Baso % (Auto) 0.2, Absolute Neuts (auto) 6.1, Absolute Lymphs (auto) 1.61, Nucleated RBC % 0, PT 15.7 H, INR 1.3, APTT 32.0, Sodium 138, Potassium 3.2 L, Chloride 100, Carbon Dioxide 30.0, Anion Gap 8, BUN36 H, Creatinine 0.71, Est GFR (MDRD) Af Amer 104, Est GFR (MDRD) Non-Af 86, BUN/Creatinine Ratio 50.8 H, Glucose 99, Calcium 9.6, Total Bilirubin 7.40 H, Direct Bilirubin 4.50 H, AST 57 H, ALT 23, Alkaline Phosphatase 218 H, Total Protein 6.2 L, Albumin 2.6 L, Globulin 3.6, Lipase 31 Clinical Impression(s) from Imaging Studies Abdomen/Pelvis CT 12/27/23 10:14 IMPRESSION: Findings suggestive of cirrhosis. Fatty infiltration of the liver. Small gallstones with mild thickening of the gallbladder wall. Small amount of ascites. Sigmoid diverticulosis. Small umbilical hernia containing fat. Charges/Coding Visit Charges Inpatient E&M: 40259 Init Hosp L3 Procedures Hospitalists Procedures: 64480 Advncd Care Plan 30 Min 12/27/23 1337 <Electronically signed by Harrison Roper MD> Cosigner Signature (if applicable): CC: Dr. Khanh Rodriguez MD; Dr. 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 Khanh Rodriguez MD Status:R EG RCR Location: History of Present Illness Date of Service: 11/29/23 Chief Complaint: Follow-up on her right lower leg lateral area wound nonhealing since at least November. History of Wound: 72-year-old white female in [place] she is living duringthe winter. She had a growth removed from her right lateral lower leg. She is still not sure if it is cancer or not. After finally getting through to the dermatology she found that they never sent a biopsy off. She saw her own doctor up here and she was referred to us from her and put on cephalexin. Recently she was taken off her Lasix and has terrible edema of her lower extremities and abdomen. Patient states she has gained 9 pounds Patient had been referred to dermatology and has returned after they did Mohs surgery on her right lateral lower leg. They state they got all the cancer out. We will reapply for EpiFix to restart her. We will also also refer to Dr. Galaviz for vascular problems she is having in her right lower leg. Her biggest complaint is that she is swelling a lot in her lower extremities. Worried about a blood clot Now she has breast cancer and is being seen by oncology at [place] for that. She has left total mastectomy on 06/12/2023. She states she is healing well fromthat. Progress of Wound: Wound is measured slightly larger than it was last week still giving her a lot of pain. She now has developed an opening on the medial side of the wound from where they did the procedure to clear open her veins. It is oozing fluid from edema. She has discussed the edema with her family doctor and was finally put on 8 days Lasix 40 mg. We will try to change up on her dressing change and change it to Aquacel extra moistened to her leg and to the medial side of her leg Objective Data Objective Data Same as above wound looks larger is very tender for her to touch still has some edema in the lower leg but better from last weeks after she started her Lasix. Will try changing to Aquacel extra Vital Signs: Vital Signs Temp Pulse Resp BP 97.4 F L 72 20 H 133/65 H 11/29/23 09:41 11/29/23 09:41 11/29/23 09:41 11/29/23 09:41 Physical Exam Const oriented x3 General Appearance: cooperative Exam Limitations: no limitations HEENT normocephalic Head and Scalp: normal to inspection Face and Sinus: normal facial exam Nose: external nose normal General Ear: hearing grossly impaired External Ear: external ears normal Mouth: oral and palatal mucosa normal Eyes PERRL General Eye: normal appearance of both eyes Neck full ROM General: normal visual inspection Resp normal respiratory effort Effort and Inspection: able to speak in complete sentences Auscultation: clear to auscultation bilaterally Cardio regular rate and regular rhythm Palpation: normal PMI Rate: regular rate Rhythm: regular rhythm GI Auscultation: normoactive bowel sounds Palpation: soft and no hepatosplenomegaly external exam normal Back/Spine Cervical Spine: cervical ROM normal Thoracic Spine / Upper Back: normal to inspection Lumbar Spine / Lower Back: normal to inspection Extremity normal to inspection General Extremity: normal exam except as noted Skin no rashes or lesions noted Neuro oriented x3 Psych Appearance: grossly normal Speech: normal speech Thought Content: normal thought content Judgement: judgement good Debridement Note Debridement Note Wound debrided: Right lateral ankle venous ulcer Type of Debridement: Excisional debridement Anesthesia Used: 5% Lidocaine Gel and Cetacaine Depth: Down to and including healthy tissue and in the subcutaneous layer Percentage of wound debrided: 100 Instrument Used: 5mm curette Tissue Removed: Fibrin and some slough Severity: Fat Layer Exposed Amount of bleeding with debridement: Mild Bleeding Controlled with: Compression and gauze Patient tolerated procedure: Patient tolerated procedure well Post-Debridement Measurements and Additional Note: Post-Debridement Measurements/Treatment WC - Nurse 1 - General Ulcer Assessment Start: 11/08/23 09:42 Freq: Status: Active Protocol: HERMILA.[email or web address] Activity Type Activity Date Activity User E-sign Co-sign Detail Recorded Client Recorded Date Recorded By Document 11/08/23 09:52 DL Desktop 11/08/23 10:01 DL Document 11/15/23 09:45 DL Desktop 11/15/23 09:59 DL Document 11/22/23 09:42 DL Desktop 11/22/23 09:53 DL Document 11/29/23 09:41 DL Desktop 11/29/23 09:50 DL 11/08/23 11/15/23 11/22/23 09:52 09:45 09:42 [facility]'s Visit Information Type of service Follow-up Visit Follow-up Visit (Physician/REAL ESTATE LEGAL ASSISTANT (Physician/REAL ESTATE LEGAL ASSISTANT ) ) Arrival Mode Ambulatory Ambulatory,Cane Ambulatory,Cane Transfer Assistance None None Patient Identification Verified (Name & Yes Yes Yes ) Patient Requires Transmission-Based No No No Precautions Safety Precautions Fall Prevention Vital Signs Temperature (97.8 F-99.1 F) 97.5 F L 96.1 F L 96.3 F L Temperature Source Temporal Temporal Temporal Pulse Rate (60-100) 70 67 65 Pulse Location Monitor Monitor Monitor Respiratory Rate (12-18) 22 H 20 H 20 H Respiratory rate source Observation Observation Observation Blood Pressure (90/60-120/80) 122/65 H 139/60 H 128/50 H Blood Pressure Mean (mm Hg) 84 86 76 Source Monitor Monitor Monitor History Since Last Visit- (Skip if this is Patient's initial visit) Have you changed medications since your No No No last visit? Any new allergies or adverse reactions No No No Had a fall/change in ADL's that may No No No increase risk of falls Signs or symptoms of abuse and/or No No No neglect since last visit Have you been in the hospital since your No No No last visit? Has dressing in place as prescribed Yes Yes Yes Has compression in place as prescribed No Yes Yes Has offloadiing in place as prescribed N/A N/A N/A Experienced any changes in pain level or No No No management Left Footwear Slipper Regular Shoe Regular Shoe Right Footwear Regular Shoe Regular Shoe Regular Shoe Pain Scale: 0-10 Numeric Is Patient Pain Free? No Yes Yes 11/29/23 09:41 [facility]'s Visit Information Type of service Follow-up Visit (Physician/REAL ESTATE LEGAL ASSISTANT ) Arrival Mode Ambulatory Transfer Assistance None Patient Identification Verified (Name & Yes ) Patient Requires Transmission-Based No Precautions Safety Precautions Vital Signs Temperature (97.8 F-99.1 F) 97.4 F L Temperature Source Temporal Pulse Rate (60-100) 72 Pulse Location Monitor Respiratory Rate (12-18) 20 H Respiratory rate source Observation Blood Pressure (90/60-120/80) 133/65 H Blood Pressure Mean (mm Hg) 87 Source Monitor History Since Last Visit- (Skip if this is Patient's initial visit) Have you changed medications since your No last visit? Any new allergies or adverse reactions No Had a fall/change in ADL's that may No increase risk of falls Signs or symptoms of abuse and/or No neglect since last visit Have you been in the hospital since your No last visit? Has dressing in place as prescribed Yes Has compression in place as prescribed No Has offloadiing in place as prescribed Yes Experienced any changes in pain level or No management Left Footwear Regular Shoe Right Footwear Regular Shoe Pain Scale: 0-10 Numeric Is Patient Pain Free? Yes WC - Nurse 1 - General Ulcer Measurement Start: 11/08/23 09:42 Freq: Status: Active Protocol: Activity Type Activity Date Activity User E-sign Co-sign Detail Recorded Client Recorded Date Recorded By Document 11/08/23 09:52 DL Desktop 11/08/23 10:01 DL Document 11/15/23 09:45 DL Desktop 11/15/23 09:59 DL Document 11/22/23 09:42 DL Desktop 11/22/23 09:53 DL Document 11/29/23 09:41 DL Desktop 11/29/23 09:50 DL 11/08/23 11/15/23 11/22/23 09:52 09:45 09:42 Wound Center Nurse 1 #6 R Med LE -Current Size (cm) - Length 10.5 -Current Size (cm) - Width 5 -Current Size (cm) - Depth 0.1 -Total Square Cm 52.5 -Photo Taken Yes -Exudate Amt Medium -Exudate Type Serosanguineous -Wound Margin Indistinct, Non -Visible -Granulation Amt None Present (0 %) -Granulation Quality -Necrosis Amt Large (67-100%) -Necrotic Tissue Type Adherent Slough -Structure Exposed N/A -Texture (Elif-wound Skin Appearance) Localized Edema ,Scarring -Moisture (Elif-wound Skin Appearance) Weeping -Color (Elif-wound Skin Appearance) Hemosiderin Staining -Temperature (Elif-wound Skin No Abnormality Appearance) (Pt Warm) -Tenderness on Palpation (Elif-wound Skin Appearance) -Ulcer Cleansing Soap and Water -Foul Odor after Cleansing No -Anesthetic Used 5% Lidocaine Gel #3 right lateral ankle -Current Size (cm) - Length 2.6 3 3.1 -Current Size (cm) - Width 2.8 3.2 3.7 -Current Size (cm) - Depth 0.2 0.3 0.5 -Total Square Cm 7.28 9.6 11.47 -Photo Taken Yes Yes -Exudate Amt Medium Medium Medium -Exudate Type Serosanguineous Serosanguineous Serosanguineous -Wound Margin Distinct, Distinct, Distinct, Outline Outline Outline Attached Attached Attached -Granulation Amt Small (1-33%) Small (1-33%) Medium (34-66%) -Granulation Quality [place] -Necrosis Amt Large (67-100%) Large (67-100%) Medium (34-66%) -Necrotic Tissue Type Adherent Slough Adherent Slough Adherent Slough -Structure Exposed N/A N/A N/A -Texture (Elif-wound Skin Appearance) Localized Edema Scarring Localized Edema ,Scarring ,Scarring -Moisture (Elif-wound Skin Appearance) No Abnormality Not Assessed No Abnormality -Color (Elif-wound Skin Appearance) Hemosiderin Hemosiderin Hemosiderin Staining Staining Staining -Temperature (Elif-wound Skin No Abnormality No Abnormality No Abnormality Appearance) (Pt Warm) (Pt Warm) (Pt Warm) -Tenderness on Palpation (Elif-wound Yes No No Skin Appearance) -Ulcer Cleansing Soap and Water Soap and Water Soap and Water -Foul Odor after Cleansing No No No -Anesthetic Used 5% Lidocaine 5% Lidocaine 5% Lidocaine Gel Gel Gel Right Calf (cm) 38.5 38.6 Right Ankle (cm) 24.3 25.3 11/29/23 09:41 Wound Center Nurse 1 #6 R Med LE -Current Size (cm) - Length 11 -Current Size (cm) - Width 3.5 -Current Size (cm) - Depth 0.1 -Total Square Cm 38.5 -Photo Taken -Exudate Amt Large -Exudate Type Serosanguineous -Wound Margin Indistinct, Non -Visible -Granulation Amt Small (1-33%) -Granulation Quality Red -Necrosis Amt Large (67-100%) -Necrotic Tissue Type Adherent Slough -Structure Exposed N/A -Texture (Elif-wound Skin Appearance) Localized Edema ,Scarring -Moisture (Elif-wound Skin Appearance) Weeping,Dry/ Scaly -Color (Elif-wound Skin Appearance) Hemosiderin Staining -Temperature (Elif-wound Skin No Abnormality Appearance) (Pt Warm) -Tenderness on Palpation (Elif-wound No Skin Appearance) -Ulcer Cleansing Soap and Water -Foul Odor after Cleansing No -Anesthetic Used 5% Lidocaine Gel #3 right lateral ankle -Current Size (cm) - Length 3 -Current Size (cm) - Width 3.2 -Current Size (cm) - Depth 0.3 -Total Square Cm 9.6 -Photo Taken -Exudate Amt Medium -Exudate Type Serosanguineous -Wound Margin Distinct, Outline Attached -Granulation Amt Medium (34-66%) -Granulation Quality Red -Necrosis Amt Medium (34-66%) -Necrotic Tissue Type Adherent Slough -Structure Exposed N/A -Texture (Elif-wound Skin Appearance) Localized Edema ,Scarring -Moisture (Elif-wound Skin Appearance) Dry/Scaly -Color (Elif-wound Skin Appearance) Hemosiderin Staining -Temperature (Elif-wound Skin No Abnormality Appearance) (Pt Warm) -Tenderness on Palpation (Elif-wound No Skin Appearance) -Ulcer Cleansing Soap and Water -Foul Odor after Cleansing No -Anesthetic Used 5% Lidocaine Gel Right Calf (cm) 37.6 Right Ankle (cm) 25 WC - Nurse 2 - General Ulcer CM Notes Start: 11/08/23 09:42 Freq: Status: Active Protocol: Activity Type Activity Date Activity User E-sign Co-sign Detail Recorded Client Recorded Date Recorded By Document 11/08/23 10:23 JF [employer] 11/08/23 10:34 JF Document 11/15/23 10:04 MW Desktop 11/15/23 10:12 MW Document 11/22/23 10:06 MW Desktop 11/22/23 10:13 MW Document 11/29/23 10:04 BMF Desktop 11/29/23 10:10 BMF 11/08/23 11/15/23 11/22/23 10:23 10:04 10:06 Wound Center Nurse 2 #6 R Med LE -Time 10:07 -Correct Patient Yes -Correct Side, Site, Position Yes -Correct Procedure Yes -Procedure Performed Yes -Type of Procedure Debridement -Clinical Debridement Subcutaneous -Tissue Removed Subcutaneous -Post Debridement (cm) - Length 0.3 -Post Debridement (cm) - Width 0.4 -Post Debridement (cm) - Depth 0.2 -Total Square (Post) (cm) 0.12 -Area of Debridement (cm) - Length 0.3 -Area of Debridement (cm) - Width 0.4 -Total Square (Area) (cm) 0.12 -Tunneling No -Undermining/Tunneling No -Circular Undermining No -Wound/Ulcer Outcome Not Healed -Ulcer Cleansing Rinsed/ Irrigated with Saline -Foul Odor after Cleansing No -Bioengineered Tissue No -Bleeding Controlled with Pressure -Treatment Response Procedure Tolerated Well -Offloading No -Debridement - Subq, 1st 20sq cm No #3 right lateral ankle -Time 10:23 10:07 10:07 -Correct Patient Yes Yes Yes -Correct Side, Site, Position Yes Yes Yes -Correct Procedure Yes Yes Yes -Procedure Performed Yes Yes Yes -Type of Procedure Debridement Debridement Debridement -Clinical Debridement Subcutaneous Subcutaneous Subcutaneous -Tissue Removed Subcutaneous Subcutaneous Subcutaneous -Post Debridement (cm) - Length 3.0 2.5 3.0 -Post Debridement (cm) - Width 2.7 3.0 4.0 -Post Debridement (cm) - Depth 0.3 0.3 0.3 -Total Square (Post) (cm) 8.10 7.50 12.00 -Area of Debridement (cm) - Length 3.0 2.5 3.0 -Area of Debridement (cm) - Width 2.7 3.0 4.0 -Total Square (Area) (cm) 8.10 7.50 12.00 -Tunneling No No No -Undermining/Tunneling No No No -Circular Undermining No No No -Wound/Ulcer Outcome Not Healed Not Healed Not Healed -Ulcer Cleansing Rinsed/ Rinsed/ Rinsed/ Irrigated with Irrigated with Irrigated with Saline Saline Saline -Foul Odor after Cleansing No No No -Bioengineered Tissue Yes No No -Type of Bioengineered Tissue Epifix -Expiration Date 07/05/28 -Product Lot Number [id number] -Percent Used 100 -Lot number of Saline Used [id number] -Bleeding Controlled with Pressure Pressure Pressure -Other Type of Bleeding Control cetacaine spray used for pain -Treatment Response Procedure Procedure Procedure Tolerated Well Tolerated Well Tolerated Well -Offloading No No No -Debridement - Subq, 1st 20sq cm No Yes Yes -Apply Skin Sub - 1st 25 sq cm - Legs 1 -Epifix (per sq cm) 4 Pain Scale: 0-10 Numeric Is Patient Pain Free? Yes Yes Yes 11/29/23 10:04 Wound Center Nurse 2 #6 R Med LE -Time 10:04 -Correct Patient Yes -Correct Side, Site, Position Yes -Correct Procedure Yes -Procedure Performed Yes -Type of Procedure Debridement -Clinical Debridement Subcutaneous -Tissue Removed Subcutaneous -Post Debridement (cm) - Length 0.3 -Post Debridement (cm) - Width 0.3 -Post Debridement (cm) - Depth 0.2 -Total Square (Post) (cm) 0.09 -Area of Debridement (cm) - Length 0.3 -Area of Debridement (cm) - Width 0.3 -Total Square (Area) (cm) 0.09 -Tunneling No -Undermining/Tunneling No -Circular Undermining No -Wound/Ulcer Outcome Not Healed -Ulcer Cleansing Rinsed/ Irrigated with Saline -Foul Odor after Cleansing No -Bioengineered Tissue No -Bleeding Controlled with Pressure -Treatment Response Procedure Tolerated Well -Offloading -Debridement - Subq, 1st 20sq cm Yes #3 right lateral ankle -Time 10:05 -Correct Patient Yes -Correct Side, Site, Position Yes -Correct Procedure Yes -Procedure Performed Yes -Type of Procedure Debridement -Clinical Debridement Subcutaneous -Tissue Removed Subcutaneous -Post Debridement (cm) - Length 3.5 -Post Debridement (cm) - Width 4 -Post Debridement (cm) - Depth 0.3 -Total Square (Post) (cm) 14.0 -Area of Debridement (cm) - Length 3.5 -Area of Debridement (cm) - Width 4 -Total Square (Area) (cm) 14.0 -Tunneling No -Undermining/Tunneling No -Circular Undermining -Wound/Ulcer Outcome Not Healed -Ulcer Cleansing Rinsed/ Irrigated with Saline -Foul Odor after Cleansing No -Bioengineered Tissue No -Type of Bioengineered Tissue -Expiration Date -Product Lot Number -Percent Used -Lot number of Saline Used -Bleeding Controlled with Pressure -Other Type of Bleeding Control -Treatment Response Procedure Tolerated Well -Offloading -Debridement - Subq, 1st 20sq cm No -Apply Skin Sub - 1st 25 sq cm - Legs -Epifix (per sq cm) Pain Scale: 0-10 Numeric Is Patient Pain Free? Yes - Nurse 3 - General Ulcer D/C NN Start: 03/06/24 09:42 Freq: Status: Active Protocol: Activity Type Activity Date Activity User E-sign Co-sign Detail Recorded Client Recorded Date Recorded By Document 11/08/23 10:57 GM Desktop 11/08/23 10:58 GM Document 11/22/23 10:21 DL Desktop 11/22/23 10:23 DL Document 11/29/23 10:11 [facility] Desktop 11/29/23 10:13 [facility] 11/08/23 11/22/23 11/29/23 10:57 10:21 10:11 Wound Care Center Nurse 3 #6 R Med LE -Ulcer Cleansing Rinsed/ Rinsed/ Irrigated with Irrigated with Saline Saline -Foul Odor after Cleansing No No -Primary Dressing Applied Fibracol Plus Aquacel Extra, 4x4,Mepilex Mepilex Border Border -Other Dressing PER MW RN -Aquacel Extra 1 -Fibracol Plus 4x4 1 -Mepilex Border 1 1 #3 right lateral ankle -Ulcer Cleansing Not Cleansed Rinsed/ Rinsed/ Irrigated with Irrigated with Saline Saline -Foul Odor after Cleansing No No No -Negative Pressure Wound Therapy N/A -Primary Dressing Applied Mepilex Border Mepilex Border Aquacel Extra, Mepilex Border -Other Dressing her personal aqaucel ex PER MW RN aquacel extra -Aquacel Extra 0 -Mepilex Border 1 1 1 Right -Other tubigrip REFUSES TUBI. WEARS OWN COMPRESSION STOCKING Treatment Response Procedure Procedure Tolerated Well Tolerated Well Pain Scale: 0-10 Numeric Is Patient Pain Free? Yes Yes Yes Teaching: Wound Center Compression Wraps & Stockings -Person Taught Patient -Teaching Method Discussion -Response to teaching Verbalize understanding WC - Visit Discharge Discharge Condition Stable Stable Stable Ambulatory Status Ambulatory,Cane Ambulatory Ambulatory,Cane Transportation Private Auto Private Auto Private Auto Medication Reconcilliation completed & Yes provided to patient/care provider Clinical Summary of Care Provided Yes Notes: dressing applied per Reyes Mukherjee today in clinic Additional Wound Wound debrided: Medial wound by ankle from postoperative site Laterality: Right Type of Debridement: Excisional debridement Anesthesia Used: 4% Lidocaine Solution and 5% Lidocaine Gel Depth: Down to and including healthy tissue and in the subcutaneous layer Percentage of wound debrided: 100 Instrument Used: 5mm curette Tissue Removed: Fibrin Severity: Fat Layer Exposed Bleeding Controlled with: Compression and gauze Patient tolerated procedure: Patient tolerated procedure well Assessment/Plan Assessment/Plan (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: CODE(S): C44.721 - Squamous cell carcinoma of skin of unspecified lower limb, including hip QUALIFIERS: Laterality: right Qualified Code(s): C44.722 - Squamous cell carcinoma of skin of right lower limb, including hip PLAN: Wound resolved (2) Venous ulcer of ankle: CODE(S): I83.003 - Varicose veins of unspecified lower extremity with ulcer of ankle; L97.309 - Non-pressure chronic ulcer of unspecified ankle with unspecified severity QUALIFIERS: Varicose vein presence: with varicose veins Laterality: right Non-pressure ulcer stage: limited to breakdown of skin Qualified Code(s): I83.013 - Varicose veins of right lower extremity with ulcer of ankle; L97.311 - Non- pressure chronic ulcer of right ankle limited to breakdown of skin PLAN: Ultrasound showed no clots in her lower leg. All surgeries are done with Dr. Galaviz for opening up venous veins (3) Non-pressure ulcer of right lower extremity: CODE(S): L97.919 - Non-pressure chronic ulcer of unspecified part of rightlower leg with unspecified severity QUALIFIERS: Non-pressure ulcer stage: with fat layer exposed Qualified Code(s): L97.912 - Non-pressure chronic ulcer of unspecified part of right lower leg with fat layer exposed PLAN: Will apply Aquacel extra to wound base moistened cover with foam dressing daily Single-layer Tubigrip till after echocardiogram is evaluated Patient is to follow-up in 1 week (4) Nonhealing nonsurgical wound: CODE(S): T14.8XXA - Other injury of unspecified body region, initial encounter PLAN: Same treatment as above for the puncture wound on the medial side of her leg from surgery. Follow-up in 1 week 11/29/23 1127 <Electronically signed by Mariela Martines NP CASTING REPAIRER-C> Cosigner Signature (if applicable): CC: ~ Signed [facility] Work Phone: [phone] 304-321403-20-2024 Progress note Author Mariela Martines [facility] November 22, 2023 11:44am Note Date/Time November 22, 2023 11: 44am [facility] [place] [address] Progress Note - Wound Care 11/22/23 1138 MR#: [id number] Acct: [id number] Name: MARY ALICE GA Rep #:[id number] : 1950 73 From: Mariela Martines NP 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 Khanh Rodriguez MD Status:R EG RCR Location: History of Present Illness Date of Service: 11/22/23 Chief Complaint: Follow-up on her right lower leg lateral area wound nonhealing since at least November. History of Wound: 72-year-old white female in [place] where she is living duringthe winter. She had a growth removed from her right lateral lower leg. She is still not sure if it is cancer or not. After finally getting through to the dermatology she found that they never sent a biopsy off. She saw her own doctor up here and she was referred to us from her and put on cephalexin. Recently she was taken off her Lasix and has terrible edema of her lower extremities and abdomen. Patient states she has gained 9 pounds Patient had been referred to dermatology and has returned after they did Mohs surgery on her right lateral lower leg. They state they got all the cancer out. We will reapply for EpiFix to restart her. We will also also refer to Dr. Galaviz for vascular problems she is having in her right lower leg. Her biggest complaint is that she is swelling a lot in her lower extremities. Worried about a blood clot Now she has breast cancer and is being seen by oncology at [place] for that. She has left total mastectomy on 06/12/2023. She states she is healing well fromthat. Progress of Wound: Wound is measured slightly larger than it was last week still giving her a lot of pain. She now has developed an opening on the medial side of the wound from where they did the procedure to clear open her veins. It is oozing fluid from edema. She has discussed the edema with her family doctor and she refuses to put her on any kind of water pill. Even though her kidney functions are normal. Cardiology is also cleared her and said that the edema is not from her heart her ejection fraction was 65% Subjective Subjective Patient is frustrated with family doctor and not getting better and the swellingin her lower legs. She has made arrangements to move back to [place] for a couple of months and will see wound center and her doctor down there. Objective Data Objective Data The wound on the right lateral leg is about the same it is not getting smaller the wound itself does not look good still gets a lot of slough in it. Will continue to use the Fibracol and Adaptic on both areas. The medial side of the leg wound is a small round opening from when she had her procedures done. Vital Signs: Vital Signs Temp Pulse Resp BP 96.3 F L 65 20 H 128/50 H 11/22/23 09:42 11/22/23 09:42 11/22/23 09:42 11/22/23 09:42 Lab / Micro Data Attestation: I reviewed the patient's lab results. Physical Exam Const oriented x3 General Appearance: cooperative Exam Limitations: no limitations HEENT normocephalic Head and Scalp: normal to inspection Face and Sinus: normal facial exam Nose: external nose normal General Ear: hearing grossly impaired External Ear: external ears normal Mouth: oral and palatal mucosa normal Eyes PERRL General Eye: normal appearance of both eyes Neck full ROM General: normal visual inspection Resp normal respiratory effort Effort and Inspection: able to speak in complete sentences Auscultation: clear to auscultation bilaterally Cardio regular rate and regular rhythm Palpation: normal PMI Rate: regular rate Rhythm: regular rhythm GI Auscultation: normoactive bowel sounds Palpation: soft and no hepatosplenomegaly external exam normal Back/Spine Cervical Spine: cervical ROM normal Thoracic Spine / Upper Back: normal to inspection Lumbar Spine / Lower Back: normal to inspection Extremity normal to inspection General Extremity: normal exam except as noted Skin no rashes or lesions noted Neuro oriented x3 Psych Appearance: grossly normal Speech: normal speech Thought Content: normal thought content Judgement: judgement good Debridement Note Debridement Note Wound debrided: Right lateral ankle venous ulcer Type of Debridement: Excisional debridement Anesthesia Used: 5% Lidocaine Gel and Cetacaine Depth: Down to and including healthy tissue and in the subcutaneous layer Percentage of wound debrided: 100 Instrument Used: 5mm curette Tissue Removed: Fibrin and some slough Severity: Fat Layer Exposed Amount of bleeding with debridement: Mild Bleeding Controlled with: Compression and gauze Patient tolerated procedure: Patient tolerated procedure well Post-Debridement Measurements and Additional Note: Post-Debridement Measurements/Treatment WC - Nurse 1 - General Ulcer Assessment Start: 11/08/23 09:42 Freq: Status: Active Protocol: SAHIL Activity Type Activity Date Activity User E-sign Co-sign Detail Recorded Client Recorded Date Recorded By Document 11/08/23 09:52 DL Desktop 11/08/23 10:01 DL Document 11/15/23 09:45 DL Desktop 11/15/23 09:59 DL Document 11/22/23 09:42 DL Desktop 11/22/23 09:53 DL 11/08/23 11/15/23 11/22/23 09:52 09:45 09:42 WC - Today's Visit Information Type of service Follow-up Visit Follow-up Visit (Physician/REAL ESTATE LEGAL ASSISTANT (Physician/REAL ESTATE LEGAL ASSISTANT ) ) Arrival Mode Ambulatory Ambulatory,Cane Ambulatory,Cane Transfer Assistance None None Patient Identification Verified (Name & Yes Yes Yes ) Patient Requires Transmission-Based No No No Precautions Safety Precautions Fall Prevention Vital Signs Temperature (97.8 F-99.1 F) 97.5 F L 96.1 F L 96.3 F L Temperature Source Temporal Temporal Temporal Pulse Rate (60-100) 70 67 65 Pulse Location Monitor Monitor Monitor Respiratory Rate (12-18) 22 H 20 H 20 H Respiratory rate source Observation Observation Observation Blood Pressure (90/60-120/80) 122/65 H 139/60 H 128/50 H Blood Pressure Mean (mm Hg) 84 86 76 Source Monitor Monitor Monitor History Since Last Visit- (Skip if this is Patient's initial visit) Have you changed medications since your No No No last visit? Any new allergies or adverse reactions No No No Had a fall/change in ADL's that may No No No increase risk of falls Signs or symptoms of abuse and/or No No No neglect since last visit Have you been in the hospital since your No No No last visit? Has dressing in place as prescribed Yes Yes Yes Has compression in place as prescribed No Yes Yes Has offloadiing in place as prescribed N/A N/A N/A Experienced any changes in pain level or No No No management Left Footwear Slipper Regular Shoe Regular Shoe Right Footwear Regular Shoe Regular Shoe Regular Shoe Pain Scale: 0-10 Numeric Is Patient Pain Free? No Yes Yes - Nurse 1 - General Ulcer Measurement Start: 11/08/23 09:42 Freq: Status: Active Protocol: Activity Type Activity Date Activity User E-sign Co-sign Detail Recorded Client Recorded Date Recorded By Document 11/08/23 09:52 DL Desktop 11/08/23 10:01 DL Document 11/15/23 09:45 DL Desktop 11/15/23 09:59 DL Document 11/22/23 09:42 DL Desktop 11/22/23 09:53 DL 11/08/23 11/15/23 11/22/23 09:52 09:45 09:42 Wound Center Nurse 1 #6 R Med LE -Current Size (cm) - Length 10.5 -Current Size (cm) - Width 5 -Current Size (cm) - Depth 0.1 -Total Square Cm 52.5 -Photo Taken Yes -Exudate Amt Medium -Exudate Type Serosanguineous -Wound Margin Indistinct, Non -Visible -Granulation Amt None Present (0 %) -Necrosis Amt Large (67-100%) -Necrotic Tissue Type Adherent Slough -Structure Exposed N/A -Texture (Elif-wound Skin Appearance) Localized Edema ,Scarring -Moisture (Elif-wound Skin Appearance) Weeping -Color (Elif-wound Skin Appearance) Hemosiderin Staining -Temperature (Elif-wound Skin No Abnormality Appearance) (Pt Warm) -Ulcer Cleansing Soap and Water -Foul Odor after Cleansing No -Anesthetic Used 5% Lidocaine Gel #3 right lateral ankle -Current Size (cm) - Length 2.6 3 3.1 -Current Size (cm) - Width 2.8 3.2 3.7 -Current Size (cm) - Depth 0.2 0.3 0.5 -Total Square Cm 7.28 9.6 11.47 -Photo Taken Yes Yes -Exudate Amt Medium Medium Medium -Exudate Type Serosanguineous Serosanguineous Serosanguineous -Wound Margin Distinct, Distinct, Distinct, Outline Outline Outline Attached Attached Attached -Granulation Amt Small (1-33%) Small (1-33%) Medium (34-66%) -Granulation Quality [place] -Necrosis Amt Large (67-100%) Large (67-100%) Medium (34-66%) -Necrotic Tissue Type Adherent Slough Adherent Slough Adherent Slough -Structure Exposed N/A N/A N/A -Texture (Elif-wound Skin Appearance) Localized Edema Scarring Localized Edema ,Scarring ,Scarring -Moisture (Elif-wound Skin Appearance) No Abnormality Not Assessed No Abnormality -Color (Elif-wound Skin Appearance) Hemosiderin Hemosiderin Hemosiderin Staining Staining Staining -Temperature (Elif-wound Skin No Abnormality No Abnormality No Abnormality Appearance) (Pt Warm) (Pt Warm) (Pt Warm) -Tenderness on Palpation (Elif-wound Yes No No Skin Appearance) -Ulcer Cleansing Soap and Water Soap and Water Soap and Water -Foul Odor after Cleansing No No No -Anesthetic Used 5% Lidocaine 5% Lidocaine 5% Lidocaine Gel Gel Gel Right Calf (cm) 38.5 38.6 Right Ankle (cm) 24.3 25.3 WC - Nurse 2 - General Ulcer CM Notes Start: 11/08/23 09:42 Freq: Status: Active Protocol: Activity Type Activity Date Activity User E-sign Co-sign Detail Recorded Client Recorded Date Recorded By Document 11/08/23 10:23 [employer] 11/08/23 10:34 JF Document 11/15/23 10:04 MW Desktop 11/15/23 10:12 MW Document 11/22/23 10:06 MW Desktop 11/22/23 10:13 MW 11/08/23 11/15/23 11/22/23 10:23 10:04 10:06 Wound Center Nurse 2 #6 R Med LE -Time 10:07 -Correct Patient Yes -Correct Side, Site, Position Yes -Correct Procedure Yes -Procedure Performed Yes -Type of Procedure Debridement -Clinical Debridement Subcutaneous -Tissue Removed Subcutaneous -Post Debridement (cm) - Length 0.3 -Post Debridement (cm) - Width 0.4 -Post Debridement (cm) - Depth 0.2 -Total Square (Post) (cm) 0.12 -Area of Debridement (cm) - Length 0.3 -Area of Debridement (cm) - Width 0.4 -Total Square (Area) (cm) 0.12 -Tunneling No -Undermining/Tunneling No -Circular Undermining No -Wound/Ulcer Outcome Not Healed -Ulcer Cleansing Rinsed/ Irrigated with Saline -Foul Odor after Cleansing No -Bioengineered Tissue No -Bleeding Controlled with Pressure -Treatment Response Procedure Tolerated Well -Offloading No -Debridement - Subq, 1st 20sq cm No #3 right lateral ankle -Time 10:23 10:07 10:07 -Correct Patient Yes Yes Yes -Correct Side, Site, Position Yes Yes Yes -Correct Procedure Yes Yes Yes -Procedure Performed Yes Yes Yes -Type of Procedure Debridement Debridement Debridement -Clinical Debridement Subcutaneous Subcutaneous Subcutaneous -Tissue Removed Subcutaneous Subcutaneous Subcutaneous -Post Debridement (cm) - Length 3.0 2.5 3.0 -Post Debridement (cm) - Width 2.7 3.0 4.0 -Post Debridement (cm) - Depth 0.3 0.3 0.3 -Total Square (Post) (cm) 8.10 7.50 12.00 -Area of Debridement (cm) - Length 3.0 2.5 3.0 -Area of Debridement (cm) - Width 2.7 3.0 4.0 -Total Square (Area) (cm) 8.10 7.50 12.00 -Tunneling No No No -Undermining/Tunneling No No No -Circular Undermining No No No -Wound/Ulcer Outcome Not Healed Not Healed Not Healed -Ulcer Cleansing Rinsed/ Rinsed/ Rinsed/ Irrigated with Irrigated with Irrigated with Saline Saline Saline -Foul Odor after Cleansing No No No -Bioengineered Tissue Yes No No -Type of Bioengineered Tissue Epifix -Expiration Date 07/05/28 -Product Lot Number [id number] -Percent Used 100 -Lot number of Saline Used [id number] -Bleeding Controlled with Pressure Pressure Pressure -Other Type of Bleeding Control cetacaine spray used for pain -Treatment Response Procedure Procedure Procedure Tolerated Well Tolerated Well Tolerated Well -Offloading No No No -Debridement - Subq, 1st 20sq cm No Yes Yes -Apply Skin Sub - 1st 25 sq cm - Legs 1 -Epifix (per sq cm) 4 Pain Scale: 0-10 Numeric Is Patient Pain Free? Yes Yes Yes WC - Nurse 3 - General Ulcer D/C NN Start: 11/08/23 09:42 Freq: Status: Active Protocol: Activity Type Activity Date Activity User E-sign Co-sign Detail Recorded Client Recorded Date Recorded By Document 11/08/23 10:57 GM Desktop 11/08/23 10:58 GM Document 11/22/23 10:21 DL Desktop 11/22/23 10:23 DL 11/08/23 11/22/23 10:57 10:21 Wound Care Center Nurse 3 #6 R Med LE -Ulcer Cleansing Rinsed/ Irrigated with Saline -Foul Odor after Cleansing No -Primary Dressing Applied Fibracol Plus 4x4,Mepilex Border -Fibracol Plus 4x4 1 -Mepilex Border 1 #3 right lateral ankle -Ulcer Cleansing Not Cleansed Rinsed/ Irrigated with Saline -Foul Odor after Cleansing No No -Negative Pressure Wound Therapy N/A -Primary Dressing Applied Mepilex Border Mepilex Border -Other Dressing her personal aqaucel ex aquacel extra -Mepilex Border 1 1 Right -Other tubigrip Treatment Response Procedure Tolerated Well Pain Scale: 0-10 Numeric Is Patient Pain Free? Yes Yes Teaching: Wound Center Compression Wraps & Stockings -Person Taught Patient -Teaching Method Discussion -Response to teaching Verbalize understanding WC - Visit Discharge Discharge Condition Stable Stable Ambulatory Status Ambulatory,Cane Ambulatory Transportation Private Auto Private Auto Medication Reconcilliation completed & Yes provided to patient/care provider Clinical Summary of Care Provided Yes Notes: dressing applied per Reyes Mukherjee today in clinic Additional Wound Wound debrided: Medial wound by ankle from postoperative site Laterality: Right Type of Debridement: Excisional debridement Anesthesia Used: 4% Lidocaine Solution and 5% Lidocaine Gel Depth: Down to and including healthy tissue and in the subcutaneous layer Percentage of wound debrided: 100 Instrument Used: 5mm curette Tissue Removed: Fibrin Severity: Fat Layer Exposed Bleeding Controlled with: Compression and gauze Patient tolerated procedure: Patient tolerated procedure well Assessment/Plan Assessment/Plan (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: CODE(S): C44.721 - Squamous cell carcinoma of skin of unspecified lower limb, including hip QUALIFIERS: Laterality: right Qualified Code(s): C44.722 - Squamous cell carcinoma of skin of right lower limb, including hip PLAN: Wound resolved (2) Venous ulcer of ankle: CODE(S): I83.003 - Varicose veins of unspecified lower extremity with ulcer of ankle; L97.309 - Non-pressure chronic ulcer of unspecified ankle with unspecified severity QUALIFIERS: Varicose vein presence: with varicose veins Laterality: right Non-pressure ulcer stage: limited to breakdown of skin Qualified Code(s): I83.013 - Varicose veins of right lower extremity with ulcer of ankle; L97.311 - Non- pressure chronic ulcer of right ankle limited to breakdown of skin PLAN: Ultrasound showed no clots in her lower leg. All surgeries are done with Dr. Galaviz for opening up venous veins (3) Non-pressure ulcer of right lower extremity: CODE(S): L97.919 - Non-pressure chronic ulcer of unspecified part of rightlower leg with unspecified severity QUALIFIERS: Non-pressure ulcer stage: with fat layer exposed Qualified Code(s): L97.912 - Non-pressure chronic ulcer of unspecified part of right lower leg with fat layer exposed PLAN: Will apply Fibracol to wound base moistened cover with foam dressing daily Single-layer Tubigrip till after echocardiogram is evaluated Patient is to follow-up in 1 week (4) Nonhealing nonsurgical wound: CODE(S): T14.8XXA - Other injury of unspecified body region, initial encounter PLAN: Same treatment as above for the puncture wound on the medial side of her leg from surgery. Follow-up in 1 week 11/22/23 1144 <Electronically signed by Mariela Martines NP CASTING REPAIRER-C> Cosigner Signature (if applicable): CC: ~ Signed [facility] Work Phone: [phone] Progress note Author Mariela Martines [facility] November 15, 2023 12:35pm Note Date/Time November 15, 2023 12: 36pm [facility] [address] [place] [id number] Progress Note - Wound Care 11/15/23 1229 MR#: [id number] Acct: [id number] Name: MARY ALICE GA Rep #:[id number] : 1950 73 From: Mariela Martines NP 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 Khanh Rodriguez MD Status:R EG RCR Location: History of Present Illness Date of Service: 11/15/23 Chief Complaint: Follow-up on her right lower leg lateral area wound nonhealing since at least November. History of Wound: 72-year-old white female in [place] where she is living duringthe winter. She had a growth removed from her right lateral lower leg. She is still not sure if it is cancer or not. After finally getting through to the dermatology she found that they never sent a biopsy off. She saw her own doctor up here and she was referred to us from her and put on cephalexin. Recently she was taken off her Lasix and has terrible edema of her lower extremities and abdomen. Patient states she has gained 9 pounds Patient had been referred to dermatology and has returned after they did Mohs surgery on her right lateral lower leg. They state they got all the cancer out. We will reapply for EpiFix to restart her. We will also also refer to Dr. Galaviz for vascular problems she is having in her right lower leg. Her biggest complaint is that she is swelling a lot in her lower extremities. Worried about a blood clot Now she has breast cancer and is being seen by oncology at [place] for that. She has left total mastectomy on 06/12/2023. She states she is healing well fromthat. Progress of Wound: Wound is measuring larger than it was the last time I saw that it has not been seen for 2 weeks she has used up her last EpiFix this last week and has a donut shaped with the raised center and like a trough around that center. Still complains of severe pain and swelling in her lower legs. She is done with Dr. Galaviz he did open up all the veins but she had echocardiogram done yesterday for possible cardiac issues that could be why she is doing all the swelling. Too much compression on the lower leg just causes that swelling to go up and above her knee and her thigh and makes her miserable. Will use a single layer for compression until we figure out what is going on with the heart. Subjective Subjective Patient is agreeable with plan Objective Data Objective Data Now that the EpiFix is done we will flip her over to Fibracol moistened with foam dressing over top daily and a single layer Tubigrip on her leg and she feltthat we felt good on her Vital Signs: Vital Signs Temp Pulse Resp BP 96.1 F L 67 20 H 139/60 H 11/15/23 09:45 11/15/23 09:45 11/15/23 09:45 11/15/23 09:45 Lab / Micro Data Attestation: I reviewed the patient's lab results. Physical Exam Const oriented x3 General Appearance: cooperative Exam Limitations: no limitations HEENT normocephalic Head and Scalp: normal to inspection Face and Sinus: normal facial exam Nose: external nose normal General Ear: hearing grossly impaired External Ear: external ears normal Mouth: oral and palatal mucosa normal Eyes PERRL General Eye: normal appearance of both eyes Neck full ROM General: normal visual inspection Resp normal respiratory effort Effort and Inspection: able to speak in complete sentences Auscultation: clear to auscultation bilaterally Cardio regular rate and regular rhythm Palpation: normal PMI Rate: regular rate Rhythm: regular rhythm GI Auscultation: normoactive bowel sounds Palpation: soft and no hepatosplenomegaly external exam normal Back/Spine Cervical Spine: cervical ROM normal Thoracic Spine / Upper Back: normal to inspection Lumbar Spine / Lower Back: normal to inspection Extremity normal to inspection General Extremity: normal exam except as noted Skin no rashes or lesions noted Neuro oriented x3 Psych Appearance: grossly normal Speech: normal speech Thought Content: normal thought content Judgement: judgement good Debridement Note Debridement Note Wound debrided: Right lateral ankle venous ulcer Type of Debridement: Excisional debridement Anesthesia Used: 5% Lidocaine Gel and Cetacaine Depth: Down to and including healthy tissue and in the subcutaneous layer Percentage of wound debrided: 100 Instrument Used: 5mm curette Tissue Removed: Fibrin and some slough Severity: Fat Layer Exposed Amount of bleeding with debridement: Mild Bleeding Controlled with: Compression and gauze Patient tolerated procedure: Patient tolerated procedure well Post-Debridement Measurements and Additional Note: Post-Debridement Measurements/Treatment - Nurse 1 - General Ulcer Assessment Start: 11/08/23 09:42 Freq: Status: Active Protocol: [email or web address].[email or web address] Activity Type Activity Date Activity User E-sign Co-sign Detail Recorded Client Recorded Date Recorded By Document 11/08/23 09:52 DL Desktop 11/08/23 10:01 DL Document 11/15/23 09:45 DL Desktop 11/15/23 09:59 DL 11/08/23 11/15/23 09:52 09:45 - Today's Visit Information Type of service Follow-up Visit Follow-up Visit (Physician/REAL ESTATE LEGAL ASSISTANT (Physician/REAL ESTATE LEGAL ASSISTANT ) ) Arrival Mode Ambulatory Ambulatory,Cane Transfer Assistance None Patient Identification Verified (Name & Yes Yes ) Patient Requires Transmission-Based No No Precautions Safety Precautions Fall Prevention Vital Signs Temperature (97.8 F-99.1 F) 97.5 F L 96.1 F L Temperature Source Temporal Temporal Pulse Rate (60-100) 70 67 Pulse Location Monitor Monitor Respiratory Rate (12-18) 22 H 20 H Respiratory rate source Observation Observation Blood Pressure (90/60-120/80) 122/65 H 139/60 H Blood Pressure Mean (mm Hg) 84 86 Source Monitor Monitor History Since Last Visit- (Skip if this is Patient's initial visit) Have you changed medications since your No No last visit? Any new allergies or adverse reactions No No Had a fall/change in ADL's that may No No increase risk of falls Signs or symptoms of abuse and/or No No neglect since last visit Have you been in the hospital since your No No last visit? Has dressing in place as prescribed Yes Yes Has compression in place as prescribed No Yes Has offloadiing in place as prescribed N/A N/A Experienced any changes in pain level or No No management Left Footwear Slipper Regular Shoe Right Footwear Regular Shoe Regular Shoe Pain Scale: 0-10 Numeric Is Patient Pain Free? No Yes WC - Nurse 1 - General Ulcer Measurement Start: 11/08/23 09:42 Freq: Status: Active Protocol: Activity Type Activity Date Activity User E-sign Co-sign Detail Recorded Client Recorded Date Recorded By Document 11/08/23 09:52 DL Desktop 11/08/23 10:01 DL Document 11/15/23 09:45 DL Desktop 11/15/23 09:59 DL 11/08/23 11/15/23 09:52 09:45 Wound Center Nurse 1 #3 right lateral ankle -Current Size (cm) - Length 2.6 3 -Current Size (cm) - Width 2.8 3.2 -Current Size (cm) - Depth 0.2 0.3 -Total Square Cm 7.28 9.6 -Photo Taken Yes -Exudate Amt Medium Medium -Exudate Type Serosanguineous Serosanguineous -Wound Margin Distinct, Distinct, Outline Outline Attached Attached -Granulation Amt Small (1-33%) Small (1-33%) -Granulation Quality [place] -Necrosis Amt Large (67-100%) Large (67-100%) -Necrotic Tissue Type Adherent Slough Adherent Slough -Structure Exposed N/A N/A -Texture (Elif-wound Skin Appearance) Localized Edema Scarring ,Scarring -Moisture (Elif-wound Skin Appearance) No Abnormality Not Assessed -Color (Elif-wound Skin Appearance) Hemosiderin Hemosiderin Staining Staining -Temperature (Elif-wound Skin No Abnormality No Abnormality Appearance) (Pt Warm) (Pt Warm) -Tenderness on Palpation (Elif-wound Yes No Skin Appearance) -Ulcer Cleansing Soap and Water Soap and Water -Foul Odor after Cleansing No No -Anesthetic Used 5% Lidocaine 5% Lidocaine Gel Gel Right Calf (cm) 38.5 Right Ankle (cm) 24.3 WC - Nurse 2 - General Ulcer CM Notes Start: 11/08/23 09:42 Freq: Status: Active Protocol: Activity Type Activity Date Activity User E-sign Co-sign Detail Recorded Client Recorded Date Recorded By Document 11/08/23 10:23 JF Desktop 11/08/23 10:34 JF Document 11/15/23 10:04 MW Desktop 11/15/23 10:12 MW 11/08/23 11/15/23 10:23 10:04 Wound Center Nurse 2 #3 right lateral ankle -Time 10:23 10:07 -Correct Patient Yes Yes -Correct Side, Site, Position Yes Yes -Correct Procedure Yes Yes -Procedure Performed Yes Yes -Type of Procedure Debridement Debridement -Clinical Debridement Subcutaneous Subcutaneous -Tissue Removed Subcutaneous Subcutaneous -Post Debridement (cm) - Length 3.0 2.5 -Post Debridement (cm) - Width 2.7 3.0 -Post Debridement (cm) - Depth 0.3 0.3 -Total Square (Post) (cm) 8.10 7.50 -Area of Debridement (cm) - Length 3.0 2.5 -Area of Debridement (cm) - Width 2.7 3.0 -Total Square (Area) (cm) 8.10 7.50 -Tunneling No No -Undermining/Tunneling No No -Circular Undermining No No -Wound/Ulcer Outcome Not Healed Not Healed -Ulcer Cleansing Rinsed/ Rinsed/ Irrigated with Irrigated with Saline Saline -Foul Odor after Cleansing No No -Bioengineered Tissue Yes No -Type of Bioengineered Tissue Epifix -Expiration Date 07/05/28 -Product Lot Number [id number] -Percent Used 100 -Lot number of Saline Used [id number] -Bleeding Controlled with Pressure Pressure -Other Type of Bleeding Control cetacaine spray used for pain -Treatment Response Procedure Procedure Tolerated Well Tolerated Well -Offloading No No -Debridement - Subq, 1st 20sq cm No Yes -Apply Skin Sub - 1st 25 sq cm - Legs 1 -Epifix (per sq cm) 4 Pain Scale: 0-10 Numeric Is Patient Pain Free? Yes Yes - Nurse 3 - General Ulcer D/C NN Start: 11/08/23 09:42 Freq: Status: Active Protocol: Activity Type Activity Date Activity User E-sign Co-sign Detail Recorded Client Recorded Date Recorded By Document 11/08/23 10:57 GM Desktop 11/08/23 10:58 GM 11/08/23 10:57 Wound Care Center Nurse 3 #3 right lateral ankle -Ulcer Cleansing Not Cleansed -Foul Odor after Cleansing No -Negative Pressure Wound Therapy N/A -Primary Dressing Applied Mepilex Border -Other Dressing her personal aquacel extra -Mepilex Border 1 Pain Scale: 0-10 Numeric Is Patient Pain Free? Yes Teaching: Wound Center Compression Wraps & Stockings -Person Taught Patient -Teaching Method Discussion -Response to teaching Verbalize understanding WC - Visit Discharge Discharge Condition Stable Ambulatory Status Ambulatory,Cane Transportation Private Auto Medication Reconcilliation completed & Yes provided to patient/care provider Clinical Summary of Care Provided Yes Assessment/Plan Assessment/Plan (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: CODE(S): C44.721 - Squamous cell carcinoma of skin of unspecified lower limb, including hip QUALIFIERS: Laterality: right Qualified Code(s): C44.722 - Squamous cell carcinoma of skin of right lower limb, including hip PLAN: Wound resolved (2) Venous ulcer of ankle: CODE(S): I83.003 - Varicose veins of unspecified lower extremity with ulcer of ankle; L97.309 - Non-pressure chronic ulcer of unspecified ankle with unspecified severity QUALIFIERS: Varicose vein presence: with varicose veins Laterality: right Non-pressure ulcer stage: limited to breakdown of skin Qualified Code(s): I83.013 - Varicose veins of right lower extremity with ulcer of ankle; L97.311 - Non- pressure chronic ulcer of right ankle limited to breakdown of skin PLAN: Ultrasound showed no clots in her lower leg. All surgeries are done with Dr. Galaviz for opening up venous veins (3) Non-pressure ulcer of right lower extremity: CODE(S): L97.919 - Non-pressure chronic ulcer of unspecified part of rightlower leg with unspecified severity QUALIFIERS: Non-pressure ulcer stage: with fat layer exposed Qualified Code(s): L97.912 - Non-pressure chronic ulcer of unspecified part of right lower leg with fat layer exposed PLAN: Will apply Fibracol to wound base moistened cover with foam dressing daily Single-layer Tubigrip till after echocardiogram is evaluated Patient is to follow-up in 1 week (4) Nonhealing nonsurgical wound: CODE(S): T14.8XXA - Other injury of unspecified body region, initial encounter 11/15/23 1235 <Electronically signed by Mariela Martines NP CASTING REPAIRER-C> Cosigner Signature (if applicable): CC: ~ Signed [facility] Work Phone: [phone] Progress note Author Hugo Johnson [facility] November 08, 2023 11:59am Note Date/Time November 08, 2023 11:2 6am [facility] [address] [place] [id number] Progress Note - Wound Care 11/08/23 1121 MR#: [id number] Acct: [id number] Name: MARY ALICE GA Rep #:[id number] : 1950 73 From: Hugo Johnson D PM PCP: Dr. Khanh Rodriguez MD Status:R EG RCR Location: History of Present Illness Date of Service: 11/08/23 Chief Complaint: Follow-up on her right lower leg lateral area wound nonhealing since at least November. History of Wound: 72-year-old white female in [place] where she is living duringthe winter. She had a growth removed from her right lateral lower leg. She is still not sure if it is cancer or not. After finally getting through to the dermatology she found that they never sent a biopsy off. She saw her own doctor up here and she was referred to us from her and put on cephalexin. Recently she was taken off her Lasix and has terrible edema of her lower extremities and abdomen. Patient states she has gained 9 pounds Patient had been referred to dermatology and has returned after they did Mohs surgery on her right lateral lower leg. They state they got all the cancer out. We will reapply for EpiFix to restart her. We will also also refer to Dr. Galaviz for vascular problems she is having in her right lower leg. Her biggest complaint is that she is swelling a lot in her lower extremities. Worried about a blood clot Now she has breast cancer and is being seen by oncology at [place] for that. She has left total mastectomy on 06/12/2023. She states she is healing well fromthat. Subjective Subjective Mrs Ga is a 72-year-old female presenting for follow-up of full-thicknessulceration appreciated to the Right lower extremity. Patient is seen by the nurse practitioner at the wound care center but is out today on vacation. She is following up with Dr. Johnson for her care. She admits to having a biopsy to the distal ulceration which came back noncancerous. She has been doing home dressing changes at home without problems. She denies trauma. Denies constitutional symptoms. No other pedal complaints at this time. Objective Data Objective Data Vital Signs: Vital Signs Temp Pulse Resp BP 97.5 F L 70 22 H 122/65 H 11/08/23 09:52 11/08/23 09:52 11/08/23 09:52 11/08/23 09:52 Physical Exam Narrative Neurovascular status is unchanged. Evidence of 2 full-thickness ulceration to the right lower extremity lateral aspect. Proximal ulceration is healed. Distal ulceration at the level ankle measures 3.0 x 2.7 x 0.7 cm. This ulceration is fibrogranular nature. No sign of infection. Excisional debridement down to and including subcutaneous tissue with a number 5mm dermal curette to the right distal/ankle ulceration without incident. Predebridement measurement is 2.6 x 2.8 x 0.2 cm. Postdebridement measurement is 3.0 x 2.7 x 0.3 cm. EpiFix 2 x 2 centimeter was applied to the right distal full-thickness ulceration with 100% use. 10th application. The graft site was free and clear of any infection. The wound/skin graft substitute was dressed with nonadherent bandage secured in place with Steri-Strips followed by bolster dressing as well as a double layer Tubigrip. Debridement Note Debridement Note Debridement Free Text: Excisional debridement down to and including subcutaneoustissue with a number 5 mm dermal curette to the right distal/ankle ulceration without incident. Predebridement measurement is 2.6 x 2.8 x 0.2 cm. Postdebridement measurement is 3.0 x 2.7 x 0.3 cm. EpiFix 2 x 2 centimeter was applied to the right distal full-thickness ulceration with 100% use. 10th application. The graft site was free and clear of any infection. The wound/skin graft substitute was dressed with nonadherent bandage secured in place with Steri-Strips followed by bolster dressing as well as a double layer Tubigrip. Post-Debridement Measurements and Additional Note: Post-Debridement Measurements/Treatment WC - Nurse 1 - General Ulcer Assessment Start: 11/08/23 09:42 Freq: Status: Active Protocol: SAHIL Activity Type Activity Date Activity User E-sign Co-sign Detail Recorded Client Recorded Date Recorded By Document 11/08/23 09:52 DL Desktop 11/08/23 10:01 DL 11/08/23 09:52 WC - Today's Visit Information Type of service Follow-up Visit (Physician/REAL ESTATE LEGAL ASSISTANT ) Arrival Mode Ambulatory Transfer Assistance None Patient Identification Verified (Name & Yes ) Patient Requires Transmission-Based No Precautions Vital Signs Temperature (97.8 F-99.1 F) 97.5 F L Temperature Source Temporal Pulse Rate (60-100) 70 Pulse Location Monitor Respiratory Rate (12-18) 22 H Respiratory rate source Observation Blood Pressure (90/60-120/80) 122/65 H Blood Pressure Mean (mm Hg) 84 Source Monitor History Since Last Visit- (Skip if this is Patient's initial visit) Have you changed medications since your No last visit? Any new allergies or adverse reactions No Had a fall/change in ADL's that may No increase risk of falls Signs or symptoms of abuse and/or No neglect since last visit Have you been in the hospital since your No last visit? Has dressing in place as prescribed Yes Has compression in place as prescribed No Has offloadiing in place as prescribed N/A Experienced any changes in pain level or No management Left Footwear Slipper Right Footwear Regular Shoe Pain Scale: 0-10 Numeric Is Patient Pain Free? No HERMILA - Nurse 1 - General Ulcer Measurement Start: 11/08/23 09:42 Freq: Status: Active Protocol: Activity Type Activity Date Activity User E-sign Co-sign Detail Recorded Client Recorded Date Recorded By Document 11/08/23 09:52 DL Desktop 11/08/23 10:01 DL 11/08/23 09:52 Wound Center Nurse 1 #3 right lateral ankle -Current Size (cm) - Length 2.6 -Current Size (cm) - Width 2.8 -Current Size (cm) - Depth 0.2 -Total Square Cm 7.28 -Exudate Amt Medium -Exudate Type Serosanguineous -Wound Margin Distinct, Outline Attached -Granulation Amt Small (1-33%) -Granulation Quality [place] -Necrosis Amt Large (67-100%) -Necrotic Tissue Type Adherent Slough -Structure Exposed N/A -Texture (Elif-wound Skin Appearance) Localized Edema ,Scarring -Moisture (Elif-wound Skin Appearance) No Abnormality -Color (Elif-wound Skin Appearance) Hemosiderin Staining -Temperature (Elif-wound Skin No Abnormality Appearance) (Pt Warm) -Tenderness on Palpation (Elif-wound Yes Skin Appearance) -Ulcer Cleansing Soap and Water -Foul Odor after Cleansing No -Anesthetic Used 5% Lidocaine Gel WC - Nurse 2 - General Ulcer CM Notes Start: 11/08/23 09:42 Freq: Status: Active Protocol: Activity Type Activity Date Activity User E-sign Co-sign Detail Recorded Client Recorded Date Recorded By Document 11/08/23 10:23 Desktop 11/08/23 10:34 11/08/23 10:23 Wound Center Nurse 2 -Time 10:23 -Correct Patient Yes -Correct Side, Site, Position Yes -Correct Procedure Yes -Procedure Performed Yes -Type of Procedure Debridement -Clinical Debridement Subcutaneous -Tissue Removed Subcutaneous -Post Debridement (cm) - Length 3.0 -Post Debridement (cm) - Width 2.7 -Post Debridement (cm) - Depth 0.3 -Total Square (Post) (cm) 8.10 -Area of Debridement (cm) - Length 3.0 -Area of Debridement (cm) - Width 2.7 -Total Square (Area) (cm) 8.10 -Tunneling No -Undermining/Tunneling No -Circular Undermining No -Wound/Ulcer Outcome Not Healed -Ulcer Cleansing Rinsed/ Irrigated with Saline -Foul Odor after Cleansing No -Bioengineered Tissue Yes -Type of Bioengineered Tissue Epifix -Expiration Date 07/05/28 -Product Lot Number [id number] -Percent Used 100 -Lot number of Saline Used [id number] -Bleeding Controlled with Pressure -Other Type of Bleeding Control cetacaine spray used for pain -Treatment Response Procedure Tolerated Well -Offloading No -Debridement - Subq, 1st 20sq cm No -Apply Skin Sub - 1st 25 sq cm - Legs 1 -Epifix (per sq cm) 4 Pain Scale: 0-10 Numeric Is Patient Pain Free? Yes - Nurse 3 - General Ulcer D/C NN Start: 11/08/23 09:42 Freq: Status: Active Protocol: Activity Type Activity Date Activity User E-sign Co-sign Detail Recorded Client Recorded Date Recorded By Document 11/08/23 10:57 GM Desktop 11/08/23 10:58 GM 11/08/23 10:57 Wound Care Center Nurse 3 #3 right lateral ankle -Ulcer Cleansing Not Cleansed -Foul Odor after Cleansing No -Negative Pressure Wound Therapy N/A -Primary Dressing Applied Mepilex Border -Other Dressing her personal aquacel extra -Mepilex Border 1 Pain Scale: 0-10 Numeric Is Patient Pain Free? Yes Teaching: Wound Center Compression Wraps & Stockings -Person Taught Patient -Teaching Method Discussion -Response to teaching Verbalize understanding WC - Visit Discharge Discharge Condition Stable Ambulatory Status Ambulatory,Cane Transportation Private Auto Medication Reconcilliation completed & Yes provided to patient/care provider Clinical Summary of Care Provided Yes Assessment/Plan Assessment/Plan (1) Non-pressure ulcer of right lower extremity with fat layer exposed: CODE(S): L97.912 - Non-pressure chronic ulcer of unspecified part of rightlower leg with fat layer exposed PLAN: Patient was examined and evaluated. All findings were discussed with the patient. All questions were answered to the patient's satisfaction. Excisional debridement down to and including subcutaneous tissue with a number 5mm dermal curette to the right distal/ankle ulceration without incident. Predebridement measurement is 2.6 x 2.8 x 0.2 cm. Postdebridement measurement is 3.0 x 2.7 x 0.3 cm. EpiFix 2 x 2 centimeter was applied to the right distal full-thickness ulceration with 100% use. 10th application. The graft site was free and clear of any infection. The wound/skin graft substitute was dressed with nonadherent bandage secured in place with Steri-Strips followed by bolster dressing as well as a double layer Tubigrip. Patient will be following up with echocardiogram testing later next week. Follow-up at the wound care center with Dr. Johnson in 1 week. (2) Venous insufficiency of right lower extremity: CODE(S): I87.2 - Venous insufficiency (chronic) (peripheral) (3) Jaundice: CODE(S): R17 - Unspecified jaundice PLAN: When evaluating the patient today the patient shows evidence of jaundice in the sclera of her eyes. The patient is also showing this colorization to herface. Patient does have a history of alcoholic liver cirrhosis. She is currently in treatment. Recommended that the patient talk with her primary doctor referral to the GI specialist Dr. Davila here at [place]. Patient was understanding and will be discussing this with her primary doctor. 11/08/23 1159 <Electronically signed by Hugo Johnson DPM> Cosigner Signature (if applicable): CC: ~ Signed [facility] Work Phone: 1(354) 703-443902-28-2024 Progress note Author Mariela Martines [facility] November 01, 2023 11:59am Note Date/Time November 01, 2023 11:59am [facility] [address] [place] [address] Progress Note - Wound Care 11/01/23 1153 MR#: [id number] Acct: [id number] Name: MARY ALICE GA Rep #:[id number] : 1950 73 From: Mariela Martines NP 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 hKanh Rodriguez MD Status:R EG RCR Location: History of Present Illness Date of Service: 11/01/23 Chief Complaint: Follow-up on her right lower leg lateral area wound nonhealing since at least November. History of Wound: 72-year-old white female in [place] is living during[place] winter. She had a growth removed from her right lateral lower leg. She is still not sure if it is cancer or not. After finally getting through to the dermatology she found that they never sent a biopsy off. She saw her own doctor up here and she was referred to us from her and put on cephalexin. Recently she was taken off her Lasix and has terrible edema of her lower extremities and abdomen. Patient states she has gained 9 pounds Patient had been referred to dermatology and has returned after they did Mohs surgery on her right lateral lower leg. They state they got all the cancer out. We will reapply for EpiFix to restart her. We will also also refer to Dr. Galaviz for vascular problems she is having in her right lower leg. Her biggest complaint is that she is swelling a lot in her lower extremities. Worried about a blood clot Now she has breast cancer and is being seen by oncology at [place] for that. She has left total mastectomy on 06/12/2023. She states she is healing well fromthat. Progress of Wound: Patient was seen by Dr. Galaviz last week and had another procedure on her right lower leg. Patient states she is not feeling different in the right leg is still very swollen. We reassured her that the swelling will get better it takesa while for the procedure to help with the swelling in the wound healing. Measurements for her right lateral lower leg were better looking flatter still gives her a lot of pain and still has swelling . Will continue with the EpiFix she is on #5 today and she will finish up next week. Subjective Subjective Patient is agreeable to plan Objective Data Objective Data Swelling in the right lower leg with some erythematous to the whole leg. Wound looks about the same flat not much smaller than was last week. Will continue using the EpiFix to finish the wound off. Patient is to continue wearing her compressions Vital Signs: Vital Signs Temp Pulse Resp BP O2 Del Method 97.7 F L 69 16 120/51 L Room Air 11/01/23 08:51 11/01/23 08:51 11/01/23 08:51 11/01/23 08:51 11/01/23 08:51 Oxygen Delivery Method Room Air Lab / Micro Data Attestation: I reviewed the patient's lab results. Physical Exam Const oriented x3 General Appearance: cooperative Exam Limitations: no limitations HEENT normocephalic Head and Scalp: normal to inspection Face and Sinus: normal facial exam Nose: external nose normal General Ear: hearing grossly impaired External Ear: external ears normal Mouth: oral and palatal mucosa normal Eyes PERRL General Eye: normal appearance of both eyes Neck full ROM General: normal visual inspection Resp normal respiratory effort Effort and Inspection: able to speak in complete sentences Auscultation: clear to auscultation bilaterally Cardio regular rate and regular rhythm Palpation: normal PMI Rate: regular rate Rhythm: regular rhythm GI Auscultation: normoactive bowel sounds Palpation: soft and no hepatosplenomegaly external exam normal Back/Spine Cervical Spine: cervical ROM normal Thoracic Spine / Upper Back: normal to inspection Lumbar Spine / Lower Back: normal to inspection Extremity normal to inspection General Extremity: normal exam except as noted Skin no rashes or lesions noted Neuro oriented x3 Psych Appearance: grossly normal Speech: normal speech Thought Content: normal thought content Judgement: judgement good Debridement Note Debridement Note Wound debrided: Right lateral ankle venous ulcer Type of Debridement: Excisional debridement Anesthesia Used: 5% Lidocaine Gel and Cetacaine Depth: Down to and including healthy tissue and in the subcutaneous layer Percentage of wound debrided: 100 Instrument Used: 5mm curette Tissue Removed: Fibrin and some slough Severity: Fat Layer Exposed Amount of bleeding with debridement: Mild Bleeding Controlled with: Compression and gauze Patient tolerated procedure: Patient tolerated procedure well Post-Debridement Measurements and Additional Note: Post-Debridement Measurements/Treatment - Nurse 1 - General Ulcer Assessment Start: 10/11/23 09:55 Freq: Status: Active Protocol: SAHIL Activity Type Activity Date Activity User E-sign Co-sign Detail Recorded Client Recorded Date Recorded By Document 10/11/23 09:55 DL Desktop 10/11/23 10:02 DL Document 10/18/23 09:49 [facility] Desktop 10/18/23 09:56 [facility] Document 10/23/23 08:56 DL Desktop 10/23/23 09:08 DL Document 10/25/23 09:43 F Desktop 10/25/23 09:52 [facility] Document 11/01/23 08:51 [facility] Desktop 11/01/23 08:56 F 10/11/23 10/18/23 10/23/23 09:55 09:49 08:56 - Today's Visit Information Type of service Follow-up Visit Follow-up Visit Nurse-only (Physician/REAL ESTATE LEGAL ASSISTANT (Physician/REAL ESTATE LEGAL ASSISTANT Visit ) ) Arrival Mode Ambulatory Ambulatory Ambulatory,Cane Transfer Assistance None None None Patient Identification Verified (Name & Yes Yes ) Patient Requires Transmission-Based No No Precautions Vital Signs Temperature (97.8 F-99.1 F) 98 F 97.9 F 98.2 F Temperature Source Temporal Temporal Temporal Pulse Rate (60-100) 66 74 64 Pulse Location Monitor Monitor Monitor Respiratory Rate (12-18) 20 H 16 20 H Respiratory rate source Observation Observation Observation Oxygen Delivery Method Room Air Blood Pressure (90/60-120/80) 128/47 H 124/62 H 121/57 H Blood Pressure Mean (mm Hg) 74 82 78 Source Monitor Monitor Monitor Position Sitting Blood Pressure Location Left Arm History Since Last Visit- (Skip if this is Patient's initial visit) Have you changed medications since your No No No last visit? Any new allergies or adverse reactions No No No Had a fall/change in ADL's that may No No No increase risk of falls Signs or symptoms of abuse and/or No No No neglect since last visit Have you been in the hospital since your No No No last visit? Has dressing in place as prescribed Yes Yes Yes Has compression in place as prescribed Yes Yes Yes Has offloadiing in place as prescribed N/A N/A N/A Experienced any changes in pain level or No No No management Left Footwear Regular Shoe Right Footwear Regular Shoe Pain Scale: 0-10 Numeric Is Patient Pain Free? Yes Yes Yes 10/25/23 11/01/23 09:43 08:51 WC - Today's Visit Information Type of service Follow-up Visit Follow-up Visit (Physician/REAL ESTATE LEGAL ASSISTANT (Physician/REAL ESTATE LEGAL ASSISTANT ) ) Arrival Mode Ambulatory,Cane Ambulatory,Cane Transfer Assistance None None Patient Identification Verified (Name & Yes Yes ) Patient Requires Transmission-Based No No Precautions Vital Signs Temperature (97.8 F-99.1 F) 96.6 F L 97.7 F L Temperature Source Temporal Temporal Pulse Rate (60-100) 63 69 Pulse Location Monitor Monitor Respiratory Rate (12-18) 16 16 Respiratory rate source Observation Observation Oxygen Delivery Method Room Air Room Air Blood Pressure (90/60-120/80) 117/53 L 120/51 L Blood Pressure Mean (mm Hg) 74 74 Source Monitor Monitor Position Sitting Sitting Blood Pressure Location Right Arm History Since Last Visit- (Skip if this is Patient's initial visit) Have you changed medications since your No No last visit? Any new allergies or adverse reactions No No Had a fall/change in ADL's that may No No increase risk of falls Signs or symptoms of abuse and/or No No neglect since last visit Have you been in the hospital since your No No last visit? Has dressing in place as prescribed Yes Yes Has compression in place as prescribed Yes Yes Has offloadiing in place as prescribed N/A N/A Experienced any changes in pain level or No No management Left Footwear Regular Shoe Regular Shoe Right Footwear Regular Shoe Regular Shoe Pain Scale: 0-10 Numeric Is Patient Pain Free? Yes Yes WC - Nurse 1 - General Ulcer Measurement Start: 10/11/23 09:55 Freq: Status: Active Protocol: Activity Type Activity Date Activity User E-sign Co-sign Detail Recorded Client Recorded Date Recorded By Document 10/11/23 09:55 DL Desktop 10/11/23 10:02 DL Document 10/18/23 09:49 [facility] Desktop 10/18/23 09:56 BMF Document 10/23/23 08:56 DL Desktop 10/23/23 09:08 DL Document 10/25/23 09:43 BMF Desktop 10/25/23 09:52 BMF Document 11/01/23 08:51 BMF Desktop 11/01/23 08:56 BMF 10/11/23 10/18/23 10/23/23 09:55 09:49 08:56 Wound Center Nurse 1 #3 right lateral ankle -Combined with other wound No -Current Size (cm) - Length 2.1 2.2 -Current Size (cm) - Width 2.8 2.4 -Current Size (cm) - Depth 0.3 0.3 -Total Square Cm 5.88 5.28 -Date of Last Picture (Recall this field) -Photo Taken Yes No -Epithelialization -Tunneling No -Undermining/Tunneling No -Circular Undermining No -Exudate Amt Medium Medium Small -Exudate Type Serosanguineous Serosanguineous Serosanguineous -Wound Margin Distinct, Distinct, Distinct, Outline Outline Outline Attached Attached Attached -Granulation Amt Medium (34-66%) Small (1-33%) -Granulation Quality Red Red -Slough/Fibrin Yes -Necrosis Amt Medium (34-66%) Large (67-100%) -Necrotic Tissue Type Adherent Slough Adherent Slough -Structure Exposed N/A -Texture (Elif-wound Skin Appearance) Localized Edema Assessed, Scarring ,Scarring Scarring -Moisture (Elif-wound Skin Appearance) No Abnormality Assessed,Dry/ Dry/Scaly Scaly -Color (Elif-wound Skin Appearance) Hemosiderin Assessed, Erythema Staining Hemosiderin Staining -Temperature (Elif-wound Skin No Abnormality No Abnormality No Abnormality Appearance) (Pt Warm) (Pt Warm) (Pt Warm) -Tenderness on Palpation (Elif-wound Yes Yes No Skin Appearance) -Ulcer Cleansing Soap and Water Soap and Water Soap and Water -Foul Odor after Cleansing No No No -Anesthetic Used 5% Lidocaine 5% Lidocaine Gel Gel -Wound Comment(s) Epifix intact today. 3M reapplied. Lower Limb Edema Present Yes Right Calf (cm) 35.4 32 Point of measurement (cm from the medial 36.5 instep) Right Ankle (cm) 24.7 24.5 Point of Measurement (cm from the medial 25 instep) 10/25/23 11/01/23 09:43 08:51 Wound Center Nurse 1 #3 right lateral ankle -Combined with other wound No -Current Size (cm) - Length 2 2.4 -Current Size (cm) - Width 1.5 2.8 -Current Size (cm) - Depth 0.2 0.3 -Total Square Cm 3.0 6.72 -Date of Last Picture (Recall this 10/25/23 field) -Photo Taken Yes Yes -Epithelialization Small 1-33% -Tunneling No -Undermining/Tunneling No -Circular Undermining No -Exudate Amt Medium Medium -Exudate Type Serosanguineous Serosanguineous -Wound Margin Distinct, Distinct, Outline Outline Attached Attached -Granulation Amt Medium (34-66%) Medium (34-66%) -Granulation Quality Red Red -Slough/Fibrin Yes -Necrosis Amt Medium (34-66%) Medium (34-66%) -Necrotic Tissue Type Adherent Slough Adherent Slough -Structure Exposed N/A -Texture (Elif-wound Skin Appearance) Assessed, Localized Edema Scarring ,Scarring -Moisture (Elif-wound Skin Appearance) Assessed,Dry/ No Abnormality Scaly -Color (Elif-wound Skin Appearance) Assessed, Hemosiderin Hemosiderin Staining Staining -Temperature (Elif-wound Skin No Abnormality No Abnormality Appearance) (Pt Warm) (Pt Warm) -Tenderness on Palpation (Elif-wound Yes Yes Skin Appearance) -Ulcer Cleansing Soap and Water Soap and Water -Foul Odor after Cleansing No No -Anesthetic Used 5% Lidocaine 5% Lidocaine Gel Gel -Wound Comment(s) Lower Limb Edema Present Yes Right Calf (cm) 32 39 Point of measurement (cm from the medial instep) Right Ankle (cm) 23 25 Point of Measurement (cm from the medial instep) WC - Nurse 2 - General Ulcer CM Notes Start: 10/11/23 09:55 Freq: Status: Active Protocol: Activity Type Activity Date Activity User E-sign Co-sign Detail Recorded Client Recorded Date Recorded By Document 10/11/23 10:14 MW Desktop 10/11/23 10:21 MW Document 10/18/23 10:11 [employer] Laptop 10/18/23 10:18 JF Document 10/25/23 10:00 MW Desktop 10/25/23 10:06 MW Document 11/01/23 09:03 MW Desktop 11/01/23 09:11 MW 10/11/23 10/18/23 10/25/23 10:14 10:11 10:00 Wound Center Nurse 2 #3 right lateral ankle -Time 10:15 10:14 10:00 -Correct Patient Yes Yes Yes -Correct Side, Site, Position Yes Yes Yes -Correct Procedure Yes Yes Yes -Procedure Performed Yes Yes Yes -Type of Procedure Debridement Debridement Debridement -Clinical Debridement Subcutaneous Subcutaneous Subcutaneous -Tissue Removed Subcutaneous Subcutaneous Subcutaneous -Post Debridement (cm) - Length 2.0 2.2 2.0 -Post Debridement (cm) - Width 2.5 2.5 1.8 -Post Debridement (cm) - Depth 0.3 0.2 0.2 -Total Square (Post) (cm) 5.00 5.50 3.60 -Area of Debridement (cm) - Length 2.0 2.2 2.0 -Area of Debridement (cm) - Width 2.5 2.5 1.8 -Total Square (Area) (cm) 5.00 5.50 3.60 -Tunneling No No No -Undermining/Tunneling No No No -Circular Undermining No No No -Wound/Ulcer Outcome Healed- Not Healed Not Healed Epithelialized -Ulcer Cleansing Rinsed/ Rinsed/ Rinsed/ Irrigated with Irrigated with Irrigated with Saline Saline Saline -Foul Odor after Cleansing No No No -Bioengineered Tissue Yes Yes Yes -Type of Bioengineered Tissue Epifix Epifix Epifix -Expiration Date 07/05/28 07/05/28 09/14/27 -Product Lot Number [id number] -Percent Used 100 100 100 -Lot number of Saline Used [id number] -Bleeding Controlled with Pressure Pressure Pressure -Treatment Response Procedure Procedure Procedure Tolerated Well Tolerated Well Tolerated Well -Offloading No No No -Debridement - Subq, 1st 20sq cm No No No -Apply Skin Sub - 1st 25 sq cm - Legs 1 1 1 -Epifix (per sq cm) 4 4 4 Pain Scale: 0-10 Numeric Is Patient Pain Free? Yes Yes Yes 11/01/23 09:03 Wound Center Nurse 2 #3 right lateral ankle -Time 09:03 -Correct Patient Yes -Correct Side, Site, Position Yes -Correct Procedure Yes -Procedure Performed Yes -Type of Procedure Debridement -Clinical Debridement Subcutaneous -Tissue Removed Subcutaneous -Post Debridement (cm) - Length 2.0 -Post Debridement (cm) - Width 2.5 -Post Debridement (cm) - Depth 0.2 -Total Square (Post) (cm) 5.00 -Area of Debridement (cm) - Length 2.0 -Area of Debridement (cm) - Width 2.5 -Total Square (Area) (cm) 5.00 -Tunneling No -Undermining/Tunneling No -Circular Undermining No -Wound/Ulcer Outcome Not Healed -Ulcer Cleansing Rinsed/ Irrigated with Saline -Foul Odor after Cleansing No -Bioengineered Tissue Yes -Type of Bioengineered Tissue Epifix -Expiration Date 07/05/28 -Product Lot Number [id number] -Percent Used 100 -Lot number of Saline Used [id number] -Bleeding Controlled with Pressure -Treatment Response Procedure Tolerated Well -Offloading No -Debridement - Subq, 1st 20sq cm No -Apply Skin Sub - 1st 25 sq cm - Legs 1 -Epifix (per sq cm) 4 Pain Scale: 0-10 Numeric Is Patient Pain Free? Yes WC - Nurse 3 - General Ulcer D/C NN Start: 10/11/23 09:55 Freq: Status: Active Protocol: Activity Type Activity Date Activity User E-sign Co-sign Detail Recorded Client Recorded Date Recorded By Document 10/11/23 10:21 MW Desktop 10/11/23 10:22 MW Document 10/18/23 10:23 KW Desktop 10/18/23 10:24 KW Document 10/23/23 08:56 DL Desktop 10/23/23 09:08 DL Document 10/25/23 10:07 MW Desktop 10/25/23 10:08 MW Document 11/01/23 09:15 MW Desktop 11/01/23 09:16 MW 10/11/23 10/18/23 10/23/23 10:21 10:23 08:56 Wound Care Center Nurse 3 #3 right lateral ankle -Ulcer Cleansing Not Cleansed Soap and Water -Foul Odor after Cleansing No -Negative Pressure Wound Therapy N/A -Primary Dressing Applied Aquacel Extra, Optilok 6.5x10 Aquacel Extra Mepilex Border -Primary Dressing Covered/Secured with Dry Gauze & Dry Gauze & Roll Gauze, Roll Gauze, Secured with Secured with Tape Tape -Other Covering ABD -Aquacel Extra 1 1 -Mepilex Border 1 -Optilok 6.5x10 1 Right -Lotion applied to leg before compression wrap -Multi-Layered Wrap Application Multi-Layer Multi-Layer Comp - Right ($ Comp - Right ($ ) ) -Stockings Treatment Response Procedure Procedure Tolerated Well Tolerated Well Vital Signs Temperature (97.8 F-99.1 F) 98.2 F Temperature Source Temporal Pulse Rate (60-100) 64 Pulse Location Monitor Respiratory Rate (12-18) 20 H Respiratory rate source Observation Blood Pressure (90/60-120/80) 121/57 H Blood Pressure Mean (mm Hg) 78 Source Monitor Pain Scale: 0-10 Numeric Is Patient Pain Free? Yes Yes Yes Teaching: Wound Center Dressing Your Wound -Person Taught Patient -Teaching Method Discussion -Response to teaching Verbalize understanding WC - Visit Discharge Discharge Condition Stable Stable Stable Ambulatory Status Ambulatory Ambulatory,Cane Ambulatory,Cane Transportation Private Auto Private Auto Private Auto Accompanied by self Medication Reconcilliation completed & No No provided to patient/care provider Clinical Summary of Care Provided Yes Yes Notes: Epifix intact. 3M reapplied today per Bethel Chin LPN. 10/25/23 11/01/23 10:07 09:15 Wound Care Center Nurse 3 #3 right lateral ankle -Ulcer Cleansing Not Cleansed Not Cleansed -Foul Odor after Cleansing No -Negative Pressure Wound Therapy N/A -Primary Dressing Applied Mepilex Border Aquacel Extra, Mepilex Border -Primary Dressing Covered/Secured with Dry Gauze -Other Covering -Aquacel Extra 1 -Mepilex Border 1 1 -Optilok 6.5x10 Right -Lotion applied to leg before No compression wrap -Multi-Layered Wrap Application -Stockings Yes Treatment Response Procedure Procedure Tolerated Well Tolerated Well Vital Signs Temperature (97.8 F-99.1 F) Temperature Source Pulse Rate (60-100) Pulse Location Respiratory Rate (12-18) Respiratory rate source Blood Pressure (90/60-120/80) Blood Pressure Mean (mm Hg) Source Pain Scale: 0-10 Numeric Is Patient Pain Free? Yes Yes Teaching: Wound Center Dressing Your Wound -Person Taught Patient Patient -Teaching Method Discussion, Discussion, Demonstration Demonstration -Response to teaching Verbalize Verbalize understanding understanding WC - Visit Discharge Discharge Condition Stable Stable Ambulatory Status Ambulatory Ambulatory,Cane Transportation Private Auto Private Auto Accompanied by self SELF Medication Reconcilliation completed & No No provided to patient/care provider Clinical Summary of Care Provided Yes Yes Notes: Assessment/Plan Assessment/Plan (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: CODE(S): C44.721 - Squamous cell carcinoma of skin of unspecified lower limb, including hip QUALIFIERS: Laterality: right Qualified Code(s): C44.722 - Squamous cell carcinoma of skin of right lower limb, including hip PLAN: Wound resolved (2) Venous ulcer of ankle: CODE(S): I83.003 - Varicose veins of unspecified lower extremity with ulcer of ankle; L97.309 - Non-pressure chronic ulcer of unspecified ankle with unspecified severity QUALIFIERS: Varicose vein presence: with varicose veins Laterality: right Non-pressure ulcer stage: limited to breakdown of skin Qualified Code(s): I83.013 - 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 Guillaume for her right lower leg edema and abnormal venousultrasounds to be done tomorrow. Obvious occlusions to her GSV's and she has discoloration to the leg with swelling and pain. (3) Non-pressure ulcer of right lower extremity: CODE(S): L97.919 - Non-pressure chronic ulcer of unspecified part of rightlower leg with unspecified severity QUALIFIERS: Non-pressure ulcer stage: with fat layer exposed Qualified Code(s): L97.912 - Non-pressure chronic ulcer of unspecified part of right lower leg with fat layer exposed PLAN: EpiFix #5 applied wound veil over top and Steri-Strips then Aquacel extra and a dry dressing Follow-up in 1 week (4) Nonhealing nonsurgical wound: CODE(S): T14.8XXA - Other injury of unspecified body region, initial encounter 11/01/23 1159 <Electronically signed by Mariela Martines NP, NP-C> Cosigner Signature (if applicable): CC: ~ Signed [facility] Work Phone: 1(994) 712-784802-22-[address] [facility] 10-26-2023 History and physical note Author Shabbir Galaviz [facility] October 26, 2023 1:23pm Note Date/Time October 26, 2023 1:23pm [facility] Medical Records Department [address] [place] [id number] History & Physical Exam 10/26/23 1321 MR#: [id number] Acct: [id number] Name: MARY ALICE GA Rep #:[id number] : 1950 73 From: Shabbir Galaviz MD PCP: Dr. Khanh Rodriguez MD Status:R [facility] Location: [facility] HPI - General HPI Narrative MARY ALICE GA, is a 73 F who presents with recurrent right lower extremity venous wounds, prior treatment of above knee segments. She presents for ablationof below knee incompetent GSV. [facility] Medical History Abnormal mammogram of left breast Age-related physical debility Alcohol use Arthritis Back pain Bleeding ulcer Breast cancer Broken hip Cancer Carotid stenosis, right Cellulitis of right leg Cirrhosis Dermatitis Elevated liver enzymes Encounter for education GERD (gastroesophageal reflux disease) High cholesterol History of edema History of skin cancer History of ulceration Hx of staphylococcal infection Hypertension Hypokalemia Hyponatremia Hypotension Injury of back Left breast lump Left hip pain Non-smoker Open wound Osteoporosis Post-menopausal Preoperative evaluation to rule out surgical contraindication Pulmonary embolism Screening for thyroid disorder Skin cancer Squamous cell skin cancer Ulcer of right leg Umbilical hernia Varicose veins of both lower extremities Vertigo Wears glasses Home Medications pantoprazole 40 mg tablet,delayed release 40 mg PO DAILY GERD #90 tabs 04/22/22 [Rx Last Taken Unknown] alendronate 70 mg tablet (Fosamax) 70 mg PO QWEEK JOINT SUPPORT #30 tabs 05/09/23 [Rx Last Taken Unknown] compress.stocking,knee,reg,lrg #2 ea 05/09/23 [Rx Last Taken Unknown] ascorbate calcium (vitamin C) 500 mg tablet 500 mg PO DAILY SUPPLEMENT 05/24/23 [History Last Taken Unknown] calcium carbonate 500 mg calcium (1,250 mg) chewable tablet (Calcium 500) 1,000 mg PO DAILY SUPPLEMENT 05/24/23 [History Last Taken Unknown] cholecalciferol (vitamin D3) 50 mcg (2,000 unit) capsule 50 mcg PO DAILY SUPPLEMENT 05/24/23 [History Last Taken Unknown] furosemide 40 mg tablet 40 mg PO DAILY DIURETIC 05/24/23 [History Last Taken Unknown] mecobalamin (vitamin B12) 1,000 mcg lozenges 1,000 mcg PO DAILY SUPPLEMENT 05/24/23 [History Last Taken Unknown] acetaminophen 500 mg capsule 500 mg PO Q6H PRN pain 06/08/23 [History Last Taken Unknown] nadolol 20 mg tablet 20 mg PO DAILY BP 06/08/23 [History Last Taken 06/11/23] spironolactone 50 mg tablet 50 mg PO BID BP 06/08/23 [History Last Taken Unknown] potassium chloride 20 mEq tablet,extended release(part/cryst) 20 meq PO DAILY SUPPLEMENT #90 tabs 07/25/23 [Rx Last Taken Unknown] anastrozole 1 mg tablet 1 mg PO DAILY #90 tabs 10/19/23 [Rx Last Taken Unknown] Allergy/AdvReac Type Severity Reaction Status Date / Time chlorhexidine Allergy Intermediate Rash Verified 09/21/23 15:39 [From [place]] Family History Mother Alzheimer disease Father Heart disease Diabetes Surgical History History of hysterectomy History of knee replacement History of left hip replacement History of left mastectomy Hx of tonsillectomy Status post Mohs surgery Social History Smoking Status: Never smoker alcohol intake: current substance use type: does not use ROS Constitutional Constitutional: Denies chills, fever(s), frequent falls, lethargy or weakness Eyes Eyes: Denies blind spots, change in vision or loss of vision ENT HEENT: Denies bleeding gums, hoarseness or sore throat Cardiovascular Cardiovascular: Denies abdominal pain, bluish discoloration of hand/feet, chest pain with activity, claudication, cold extremities, cyanosis, dyspnea on exertion, erythema on extremities, irregular heart rhythm, leg edema, leg ulcers, numbness in extremities or weakness in extremities Respiratory/Chest Respiratory/Chest: Denies cough, excessive phlegm production, shortness of breath at rest, shortness of breath with exertion or wheezing Gastrointestinal Gastrointestinal: Denies anorexia, change in stool character, constipation, diarrhea, melena or rectal bleeding Genitourinary Genitourinary: Denies dysuria or hematuria Musculoskeletal Musculoskeletal: Denies abnormal gait Integumentary Integumentary: Reports other Details: ; Denies erythema, non-healing lesions or wounds Neurologic Neurologic: Denies abnormal speech, focal weakness, headache(s), loss of vision,numbness, paresthesias or sensory deficit Hematologic/Lymphatic Hematologic/Lymphatic: Denies easy bleeding, easy bruising or lymphadenopathy Vital Signs Vital Signs Vital Signs: Weight Weight: 148 lb Physical Exam Const alert, oriented x3, no apparent distress and healthy appearing General Appearance: cooperative; Negative for combative or lethargic Orientation / Consciousness: awake Exam Limitations: no limitations HEENT Head and Scalp: normocephalic and atraumatic Eyes EOMs intact bilaterally General Eye: normal appearance of both eyes Neck full ROM, no lymphadenopathy and thyroid normal General: trachea midline; Negative for lymphadenopathy or tenderness Thyroid: thyroid normal Lymph Lymphatic: Negative for no lymphadenopathy noted Resp normal respiratory effort and no use of accessory muscles Effort and Inspection: Negative for labored, stridor or audible wheezes Cardio regular rate and regular rhythm Back/Spine Cervical Spine: cervical ROM normal Extremity full ROM, normal capillary refill and no clubbing, cyanosis or edema Skin no rashes or lesions noted and no wounds Neuro oriented x3, CN's II-XII intact bilaterally, no focal motor deficits and no sensory deficits noted Psych thought process normal, cooperative, affect normal, speech normal and activity/motor behavior normal Results Lab / Micro Data 10/26/23 10:38 10/26/23 10:38 Labs: Laboratory Results - last 24 hr 10/26/23 10:38: WBC 5.2, RBC 3.03 L, Hgb 11.6 L, Hct 31.1 L, MCV 102.6 H, MCH 38.3 H, MCHC 37.3 H, RDW Std Deviation 58.5 H, RDW Coeff of Carlyle 15.9 H, Plt Count 121 L, MPV 9.3, Sodium 125 L, Potassium 3.4 L, Chloride 87 L, Carbon Dioxide 30.0, Anion Gap 8, BUN 6 L, Creatinine 0.67, Estim Creat Clear Calc 58.50, Est GFR (MDRD) Af Amer 111, Est GFR (MDRD) Non-Af 92, BUN/Creatinine Ratio 9.0 L, Glucose 124 H, Calcium 8.9 Assessment & Plan Assessment/Plan (1) Venous insufficiency of right lower extremity: PLAN: -right GSV chemical ablation 10/26/23 1323 <Electronically signed by Shabbir Galaviz MD> Cosigner Signature (if applicable): CC: Dr. Khanh Rodriguez MD; Dr. Shabbir Galaviz MD~ Signed [facility] Work Phone: [phone] [phone] Progress note Author Mariela Martines [facility] October 25, 2023 11:44am Note Date/Time October 25, 2023 11:44am [facility] [address] [place] [address] Progress Note - Wound Care 10/25/23 1139 MR#: [id number] Acct: [id number] Name: MARY ALICE GA Rep #:[id number] : 1950 73 From: Mariela Martines NP 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 Khanh Rodriguez MD Status:R EG RCR Location: History of Present Illness Date of Service: 10/25/23 Chief Complaint: Follow-up on her right lower leg lateral area wound nonhealing since at least November. History of Wound: 72-year-old white female in [place] is living [place] winter. She had a growth removed from her right lateral lower leg. She is still not sure if it is cancer or not. After finally getting through to the dermatology she found that they never sent a biopsy off. She saw her own doctor up here and she was referred to us from her and put on cephalexin. Recently she was taken off her Lasix and has terrible edema of her lower extremities and abdomen. Patient states she has gained 9 pounds Patient had been referred to dermatology and has returned after they did Mohs surgery on her right lateral lower leg. They state they got all the cancer out. We will reapply for EpiFix to restart her. We will also also refer to Dr. Galaviz for vascular problems she is having in her right lower leg. Her biggest complaint is that she is swelling a lot in her lower extremities. Worried about a blood clot Now she has breast cancer and is being seen by oncology at [place] for that. She has left total mastectomy on 06/12/2023. She states she is healing well fromthat. Progress of Wound: Patient was seen by another provider last week and she had a 3M wrap put on her right leg. The measurements for her right lateral lower leg were better lookingflatter still gives her a lot of pain and she started swelling above the 3M wrappoorly. She is to scheduled with Dr. Galaviz tomorrow for her procedure to open up the 3 clogged venous veins. Subjective Subjective Patient is agreeable to plan we will continue with the EpiFix Objective Data Objective Data No sign of infection debrided well looks good no sign of infection and the wounditself will continue with the EpiFix #4. Since he is anxious to get the procedure done and I told her that will really help with healing Vital Signs: Vital Signs Temp Pulse Resp BP O2 Del Method 96.6 F L 63 16 117/53 L Room Air 10/25/23 09:43 10/25/23 09:43 10/25/23 09:43 10/25/23 09:43 10/25/23 09:43 Oxygen Delivery Method Room Air Physical Exam Const oriented x3 General Appearance: cooperative Exam Limitations: no limitations HEENT normocephalic Head and Scalp: normal to inspection Face and Sinus: normal facial exam Nose: external nose normal General Ear: hearing grossly impaired External Ear: external ears normal Mouth: oral and palatal mucosa normal Eyes PERRL General Eye: normal appearance of both eyes Neck full ROM General: normal visual inspection Resp normal respiratory effort Effort and Inspection: able to speak in complete sentences Auscultation: clear to auscultation bilaterally Cardio regular rate and regular rhythm Palpation: normal PMI Rate: regular rate Rhythm: regular rhythm GI Auscultation: normoactive bowel sounds Palpation: soft and no hepatosplenomegaly external exam normal Back/Spine Cervical Spine: cervical ROM normal Thoracic Spine / Upper Back: normal to inspection Lumbar Spine / Lower Back: normal to inspection Extremity normal to inspection General Extremity: normal exam except as noted Skin no rashes or lesions noted Neuro oriented x3 Psych Appearance: grossly normal Speech: normal speech Thought Content: normal thought content Judgement: judgement good Debridement Note Debridement Note Wound debrided: Right francis Laterality: Right Type of Debridement: Selective debridement Depth: Down to and including healthy tissue Percentage of wound debrided: 100 Instrument Used: 5mm curette Tissue Removed: Fibrin Severity: Limited To Skin Breakdown Amount of bleeding with debridement: Mild Bleeding Controlled with: Compression and gauze Patient tolerated procedure: Patient tolerated procedure well No debridement was completed: No debridement was completed today Post-Debridement Measurements and Additional Note: Post-Debridement Measurements/Treatment WC - Nurse 1 - General Ulcer Assessment Start: 10/11/23 09:55 Freq: Status: Active Protocol: [email or web address] Activity Type Activity Date Activity User E-sign Co-sign Detail Recorded Client Recorded Date Recorded By Document 10/11/23 09:55 DL Desktop 10/11/23 10:02 DL Document 10/18/23 09:49 BMF Desktop 10/18/23 09:56 BMF Document 10/23/23 08:56 DL Desktop 10/23/23 09:08 DL Document 10/25/23 09:43 BMF Desktop 10/25/23 09:52 BMF 10/11/23 10/18/23 10/23/23 09:55 09:49 08:56 [facility] Today's Visit Information Type of service Follow-up Visit Follow-up Visit Nurse-only (Physician/REAL ESTATE LEGAL ASSISTANT (Physician/REAL ESTATE LEGAL ASSISTANT Visit ) ) Arrival Mode Ambulatory Ambulatory Ambulatory,Cane Transfer Assistance None None None Patient Identification Verified (Name & Yes Yes ) Patient Requires Transmission-Based No No Precautions Vital Signs Temperature (97.8 F-99.1 F) 98 F 97.9 F 98.2 F Temperature Source Temporal Temporal Temporal Pulse Rate (60-100) 66 74 64 Pulse Location Monitor Monitor Monitor Respiratory Rate (12-18) 20 H 16 20 H Respiratory rate source Observation Observation Observation Oxygen Delivery Method Room Air Blood Pressure (90/60-120/80) 128/47 H 124/62 H 121/57 H Blood Pressure Mean (mm Hg) 74 82 78 Source Monitor Monitor Monitor Position Sitting Blood Pressure Location Left Arm History Since Last Visit- (Skip if this is Patient's initial visit) Have you changed medications since your No No No last visit? Any new allergies or adverse reactions No No No Had a fall/change in ADL's that may No No No increase risk of falls Signs or symptoms of abuse and/or No No No neglect since last visit Have you been in the hospital since your No No No last visit? Has dressing in place as prescribed Yes Yes Yes Has compression in place as prescribed Yes Yes Yes Has offloadiing in place as prescribed N/A N/A N/A Experienced any changes in pain level or No No No management Left Footwear Regular Shoe Right Footwear Regular Shoe Pain Scale: 0-10 Numeric Is Patient Pain Free? Yes Yes Yes 10/25/23 09:43 [facility] Today's Visit Information Type of service Follow-up Visit (Physician/REAL ESTATE LEGAL ASSISTANT ) Arrival Mode Ambulatory,Cane Transfer Assistance None Patient Identification Verified (Name & Yes ) Patient Requires Transmission-Based No Precautions Vital Signs Temperature (97.8 F-99.1 F) 96.6 F L Temperature Source Temporal Pulse Rate (60-100) 63 Pulse Location Monitor Respiratory Rate (12-18) 16 Respiratory rate source Observation Oxygen Delivery Method Room Air Blood Pressure (90/60-120/80) 117/53 L Blood Pressure Mean (mm Hg) 74 Source Monitor Position Sitting Blood Pressure Location Right Arm History Since Last Visit- (Skip if this is Patient's initial visit) Have you changed medications since your No last visit? Any new allergies or adverse reactions No Had a fall/change in ADL's that may No increase risk of falls Signs or symptoms of abuse and/or No neglect since last visit Have you been in the hospital since your No last visit? Has dressing in place as prescribed Yes Has compression in place as prescribed Yes Has offloadiing in place as prescribed N/A Experienced any changes in pain level or No management Left Footwear Regular Shoe Right Footwear Regular Shoe Pain Scale: 0-10 Numeric Is Patient Pain Free? Yes WC - Nurse 1 - General Ulcer Measurement Start: 10/11/23 09:55 Freq: Status: Active Protocol: Activity Type Activity Date Activity User E-sign Co-sign Detail Recorded Client Recorded Date Recorded By Document 10/11/23 09:55 DL Desktop 10/11/23 10:02 DL Document 10/18/23 09:49 BMF Desktop 10/18/23 09:56 BMF Document 10/23/23 08:56 DL Desktop 10/23/23 09:08 DL Document 10/25/23 09:43 BMF Desktop 10/25/23 09:52 BMF 10/11/23 10/18/23 10/23/23 09:55 09:49 08:56 Wound Center Nurse 1 #3 right lateral ankle -Combined with other wound No -Current Size (cm) - Length 2.1 2.2 -Current Size (cm) - Width 2.8 2.4 -Current Size (cm) - Depth 0.3 0.3 -Total Square Cm 5.88 5.28 -Date of Last Picture (Recall this field) -Photo Taken Yes No -Epithelialization -Tunneling No -Undermining/Tunneling No -Circular Undermining No -Exudate Amt Medium Medium Small -Exudate Type Serosanguineous Serosanguineous Serosanguineous -Wound Margin Distinct, Distinct, Distinct, Outline Outline Outline Attached Attached Attached -Granulation Amt Medium (34-66%) Small (1-33%) -Granulation Quality Red Red -Slough/Fibrin Yes -Necrosis Amt Medium (34-66%) Large (67-100%) -Necrotic Tissue Type Adherent Slough Adherent Slough -Structure Exposed N/A -Texture (Elif-wound Skin Appearance) Localized Edema Assessed, Scarring ,Scarring Scarring -Moisture (Elif-wound Skin Appearance) No Abnormality Assessed,Dry/ Dry/Scaly Scaly -Color (Elif-wound Skin Appearance) Hemosiderin Assessed, Erythema Staining Hemosiderin Staining -Temperature (Elif-wound Skin No Abnormality No Abnormality No Abnormality Appearance) (Pt Warm) (Pt Warm) (Pt Warm) -Tenderness on Palpation (Elif-wound Yes Yes No Skin Appearance) -Ulcer Cleansing Soap and Water Soap and Water Soap and Water -Foul Odor after Cleansing No No No -Anesthetic Used 5% Lidocaine 5% Lidocaine Gel Gel -Wound Comment(s) Epifix intact today. 3M reapplied. Lower Limb Edema Present Yes Right Calf (cm) 35.4 32 Point of measurement (cm from the medial 36.5 instep) Right Ankle (cm) 24.7 24.5 Point of Measurement (cm from the medial 25 instep) 10/25/23 09:43 Wound Center Nurse 1 #3 right lateral ankle -Combined with other wound No -Current Size (cm) - Length 2 -Current Size (cm) - Width 1.5 -Current Size (cm) - Depth 0.2 -Total Square Cm 3.0 -Date of Last Picture (Recall this 10/25/23 field) -Photo Taken Yes -Epithelialization Small 1-33% -Tunneling No -Undermining/Tunneling No -Circular Undermining No -Exudate Amt Medium -Exudate Type Serosanguineous -Wound Margin Distinct, Outline Attached -Granulation Amt Medium (34-66%) -Granulation Quality Red -Slough/Fibrin Yes -Necrosis Amt Medium (34-66%) -Necrotic Tissue Type Adherent Slough -Structure Exposed -Texture (Elif-wound Skin Appearance) Assessed, Scarring -Moisture (Elif-wound Skin Appearance) Assessed,Dry/ Scaly -Color (Elif-wound Skin Appearance) Assessed, Hemosiderin Staining -Temperature (Elif-wound Skin No Abnormality Appearance) (Pt Warm) -Tenderness on Palpation (Elif-wound Yes Skin Appearance) -Ulcer Cleansing Soap and Water -Foul Odor after Cleansing No -Anesthetic Used 5% Lidocaine Gel -Wound Comment(s) Lower Limb Edema Present Yes Right Calf (cm) 32 Point of measurement (cm from the medial instep) Right Ankle (cm) 23 Point of Measurement (cm from the medial instep) WC - Nurse 2 - General Ulcer CM Notes Start: 10/11/23 09:55 Freq: Status: Active Protocol: Activity Type Activity Date Activity User E-sign Co-sign Detail Recorded Client Recorded Date Recorded By Document 10/11/23 10:14 MW Desktop 10/11/23 10:21 MW Document 10/18/23 10:11 JF Laptop 10/18/23 10:18 JF Document 10/25/23 10:00 MW Desktop 10/25/23 10:06 MW 10/11/23 10/18/23 10/25/23 10:14 10:11 10:00 Wound Center Nurse 2 #3 right lateral ankle -Time 10:15 10:14 10:00 -Correct Patient Yes Yes Yes -Correct Side, Site, Position Yes Yes Yes -Correct Procedure Yes Yes Yes -Procedure Performed Yes Yes Yes -Type of Procedure Debridement Debridement Debridement -Clinical Debridement Subcutaneous Subcutaneous Subcutaneous -Tissue Removed Subcutaneous Subcutaneous Subcutaneous -Post Debridement (cm) - Length 2.0 2.2 2.0 -Post Debridement (cm) - Width 2.5 2.5 1.8 -Post Debridement (cm) - Depth 0.3 0.2 0.2 -Total Square (Post) (cm) 5.00 5.50 3.60 -Area of Debridement (cm) - Length 2.0 2.2 2.0 -Area of Debridement (cm) - Width 2.5 2.5 1.8 -Total Square (Area) (cm) 5.00 5.50 3.60 -Tunneling No No No -Undermining/Tunneling No No No -Circular Undermining No No No -Wound/Ulcer Outcome Healed- Not Healed Not Healed Epithelialized -Ulcer Cleansing Rinsed/ Rinsed/ Rinsed/ Irrigated with Irrigated with Irrigated with Saline Saline Saline -Foul Odor after Cleansing No No No -Bioengineered Tissue Yes Yes Yes -Type of Bioengineered Tissue Epifix Epifix Epifix -Expiration Date 07/05/28 07/05/28 09/14/27 -Product Lot Number [id number] -Percent Used 100 100 100 -Lot number of Saline Used [id number] -Bleeding Controlled with Pressure Pressure Pressure -Treatment Response Procedure Procedure Procedure Tolerated Well Tolerated Well Tolerated Well -Offloading No No No -Debridement - Subq, 1st 20sq cm No No No -Apply Skin Sub - 1st 25 sq cm - Legs 1 1 1 -Epifix (per sq cm) 4 4 4 Pain Scale: 0-10 Numeric Is Patient Pain Free? Yes Yes Yes WC - Nurse 3 - General Ulcer D/C NN Start: 10/11/23 09:55 Freq: Status: Active Protocol: Activity Type Activity Date Activity User E-sign Co-sign Detail Recorded Client Recorded Date Recorded By Document 10/11/23 10:21 MW Desktop 10/11/23 10:22 MW Document 10/18/23 10:23 KW Desktop 10/18/23 10:24 KW Document 10/23/23 08:56 DL Desktop 10/23/23 09:08 DL Document 10/25/23 10:07 MW Desktop 10/25/23 10:08 MW 10/11/23 10/18/23 10/23/23 10:21 10:23 08:56 Wound Care Center Nurse 3 #3 right lateral ankle -Ulcer Cleansing Not Cleansed Soap and Water -Foul Odor after Cleansing No -Negative Pressure Wound Therapy N/A -Primary Dressing Applied Aquacel Extra, Optilok 6.5x10 Aquacel Extra Mepilex Border -Primary Dressing Covered/Secured with Dry Gauze & Dry Gauze & Roll Gauze, Roll Gauze, Secured with Secured with Tape Tape -Other Covering ABD -Aquacel Extra 1 1 -Mepilex Border 1 -Optilok 6.5x10 1 Right -Lotion applied to leg before compression wrap -Multi-Layered Wrap Application Multi-Layer Multi-Layer Comp - Right ($ Comp - Right ($ ) ) -Stockings Treatment Response Procedure Procedure Tolerated Well Tolerated Well Vital Signs Temperature (97.8 F-99.1 F) 98.2 F Temperature Source Temporal Pulse Rate (60-100) 64 Pulse Location Monitor Respiratory Rate (12-18) 20 H Respiratory rate source Observation Blood Pressure (90/60-120/80) 121/57 H Blood Pressure Mean (mm Hg) 78 Source Monitor Pain Scale: 0-10 Numeric Is Patient Pain Free? Yes Yes Yes Teaching: Wound Center Dressing Your Wound -Person Taught Patient -Teaching Method Discussion -Response to teaching Verbalize understanding WC - Visit Discharge Discharge Condition Stable Stable Stable Ambulatory Status Ambulatory Ambulatory,Cane Ambulatory,Cane Transportation Private Auto Private Auto Private Auto Accompanied by self Medication Reconcilliation completed & No No provided to patient/care provider Clinical Summary of Care Provided Yes Yes Notes: Epifix intact. 3M reapplied today per Bethel Chin LPN. 10/25/23 10:07 Wound Care Center Nurse 3 #3 right lateral ankle -Ulcer Cleansing Not Cleansed -Foul Odor after Cleansing -Negative Pressure Wound Therapy -Primary Dressing Applied Mepilex Border -Primary Dressing Covered/Secured with -Other Covering -Aquacel Extra -Mepilex Border 1 -Optilok 6.5x10 Right -Lotion applied to leg before No compression wrap -Multi-Layered Wrap Application -Stockings Yes Treatment Response Procedure Tolerated Well Vital Signs Temperature (97.8 F-99.1 F) Temperature Source Pulse Rate (60-100) Pulse Location Respiratory Rate (12-18) Respiratory rate source Blood Pressure (90/60-120/80) Blood Pressure Mean (mm Hg) Source Pain Scale: 0-10 Numeric Is Patient Pain Free? Yes Teaching: Wound Center Dressing Your Wound -Person Taught Patient -Teaching Method Discussion, Demonstration -Response to teaching Verbalize understanding WC - Visit Discharge Discharge Condition Stable Ambulatory Status Ambulatory Transportation Private Auto Accompanied by self Medication Reconcilliation completed & No provided to patient/care provider Clinical Summary of Care Provided Yes Notes: Additional Wound Wound debrided: Right ankle venous ulcer Laterality: Right Type of Debridement: Excisional debridement Anesthesia Used: 5% Lidocaine Gel Depth: in the subcutaneous layer Percentage of wound debrided: 100 Instrument Used: 3mm curette Tissue Removed: Fibrin Severity: Fat Layer Exposed Amount of bleeding with debridement: Mild Bleeding Controlled with: Compression and gauze Patient tolerated procedure: Patient tolerated procedure well Assessment/Plan Assessment/Plan (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: CODE(S): C44.721 - Squamous cell carcinoma of skin of unspecified lower limb, including hip QUALIFIERS: Laterality: right Qualified Code(s): C44.722 - Squamous cell carcinoma of skin of right lower limb, including hip PLAN: Wound resolved (2) Venous ulcer of ankle: CODE(S): I83.003 - Varicose veins of unspecified lower extremity with ulcer of ankle; L97.309 - Non-pressure chronic ulcer of unspecified ankle with unspecified severity QUALIFIERS: Varicose vein presence: with varicose veins Laterality: right Non-pressure ulcer stage: limited to breakdown of skin Qualified Code(s): I83.013 - 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 Galaviz for her right lower leg edema and abnormal venousultrasounds to be done tomorrow. Obvious occlusions to her GSV's and she has discoloration to the leg with swelling and pain. (3) Non-pressure ulcer of right lower extremity: CODE(S): L97.919 - Non-pressure chronic ulcer of unspecified part of rightlower leg with unspecified severity QUALIFIERS: Non-pressure ulcer stage: with fat layer exposed Qualified Code(s): L97.912 - Non-pressure chronic ulcer of unspecified part of right lower leg with fat layer exposed PLAN: EpiFix #4 applied wound veil over top and Steri-Strips then Aquacel extra and a dry dressing Follow-up in 1 week (4) Nonhealing nonsurgical wound: CODE(S): T14.8XXA - Other injury of unspecified body region, initial encounter 10/25/23 1144 <Electronically signed by Mariela CHILDERSC> Cosigner Signature (if applicable): CC: ~ Signed [facility] Work Phone: [phone] Progress note Author Hugo Johnson [facility] October 18, 2023 11:52am Note Date/Time October 18, 2023 11:48am [facility] [address] [place] [id number] Progress Note - Wound Care 10/18/23 1147 MR#: [id number] Acct: [id number] Name: MARY ALICE GA Rep #:[id number] : 1950 73 From: Hugo Hughes PM PCP: Dr. Khanh Rodriguez MD Status:R EG RCR Location: History of Present Illness Date of Service: 10/18/23 Chief Complaint: Follow-up on her right lower leg lateral area wound nonhealing since at least November. History of Wound: 72-year-old white female in [place] where she is living duringthe winter. She had a growth removed from her right lateral lower leg. She is still not sure if it is cancer or not. After finally getting through to the dermatology she found that they never sent a biopsy off. She saw her own doctor up here and she was referred to us from her and put on cephalexin. Recently she was taken off her Lasix and has terrible edema of her lower extremities and abdomen. Patient states she has gained 9 pounds Patient had been referred to dermatology and has returned after they did Mohs surgery on her right lateral lower leg. They state they got all the cancer out. We will reapply for EpiFix to restart her. We will also also refer to Dr. Galaviz for vascular problems she is having in her right lower leg. Her biggest complaint is that she is swelling a lot in her lower extremities. Worried about a blood clot Now she has breast cancer and is being seen by oncology at [place] for that. She has left total mastectomy on 06/12/2023. She states she is healing well fromthat. Progress of Wound: The right lateral lower leg is the same size may be slightly smaller only because she is growing from the inside out rather than Outside In she has islands of new skin developing which is good with the epi fix. The right whole leg is very edematous and she had canceled her appointment with Dr. Galaviz and is now trying to get back in because she is having a lot of pain in the leg fromthe clogged connectors and her calf and thigh. She still wearing her compression stockings though but she says by the end of the day her knee is justvery swollen with fluid. Subjective Subjective Mrs Ga is a 72-year-old female presenting for follow-up of full-thicknessulceration appreciated to the Right lower extremity. Patient is seen by the nurse practitioner at the wound care center but is out today on vacation. She is following up with Dr. Johnson for her care. She admits to having a biopsy to the distal ulceration which came back noncancerous. She has been doing home dressing changes at home without problems. She denies trauma. Denies constitutional symptoms. No other pedal complaints at this time. Objective Data Objective Data Vital Signs: Vital Signs Temp Pulse Resp BP O2 Del Method 97.9 F 74 16 124/62 H Room Air 10/18/23 09:49 10/18/23 09:49 10/18/23 09:49 10/18/23 09:49 10/18/23 09:49 Oxygen Delivery Method Room Air Physical Exam Narrative Neurovascular status is unchanged. Evidence of full-thickness ulceration to theright lower extremity lateral aspect. Ulceration at the level ankle measures 2.2x 2.5 x 0.2 cm. Wound is granular nature. No sign of infection. Excisional debridement down to and including subcutaneous tissue with a number 5mm dermal curette to the right distal/ankle ulceration without incident. Predebridement measurement is 2.0 x 2.3 x 0.1 cm. Postdebridement measurement is 2.2 x 2.5 x 0.2 cm. EpiFix 2 x 2 centimeter was applied to the right distal full-thickness ulceration with 100% use. Seventh application. The graft site was free and clear of any infection. The wound/skin graft substitute was dressed with nonadherent bandage secured in place with Steri-Strips followed by bolster dressing as well as a double layer Tubigrip. Debridement Note Debridement Note Debridement Free Text: Excisional debridement down to and including subcutaneoustissue with a number 5 mm dermal curette to the right distal/ankle ulceration without incident. Predebridement measurement is 2.0 x 2.3 x 0.1 cm. Postdebridement measurement is 2.2 x 2.5 x 0.2 cm. EpiFix 2 x 2 centimeter was applied to the right distal full-thickness ulceration with 100% use. Seventh application. The graft site was free and clear of any infection. The wound/skin graft substitute was dressed with nonadherent bandage secured in place with Steri-Strips followed by bolster dressing as well as a double layer Tubigrip. Post-Debridement Measurements and Additional Note: Post-Debridement Measurements/Treatment WC - Nurse 1 - General Ulcer Assessment Start: 10/11/23 09:55 Freq: Status: Active Protocol: EBEREXT Activity Type Activity Date Activity User E-sign Co-sign Detail Recorded Client Recorded Date Recorded By Document 10/11/23 09:55 DL Desktop 10/11/23 10:02 DL Document 10/18/23 09:49 [facility] Desktop 10/18/23 09:56 [facility] 10/11/23 10/18/23 09:55 09:49 - Today's Visit Information Type of service Follow-up Visit Follow-up Visit (Physician/REAL ESTATE LEGAL ASSISTANT (Physician/REAL ESTATE LEGAL ASSISTANT ) ) Arrival Mode Ambulatory Ambulatory Transfer Assistance None None Patient Identification Verified (Name & Yes Yes ) Patient Requires Transmission-Based No No Precautions Vital Signs Temperature (97.8 F-99.1 F) 98 F 97.9 F Temperature Source Temporal Temporal Pulse Rate (60-100) 66 74 Pulse Location Monitor Monitor Respiratory Rate (12-18) 20 H 16 Respiratory rate source Observation Observation Oxygen Delivery Method Room Air Blood Pressure (90/60-120/80) 128/47 H 124/62 H Blood Pressure Mean (mm Hg) 74 82 Source Monitor Monitor Position Sitting Blood Pressure Location Left Arm History Since Last Visit- (Skip if this is Patient's initial visit) Have you changed medications since your No No last visit? Any new allergies or adverse reactions No No Had a fall/change in ADL's that may No No increase risk of falls Signs or symptoms of abuse and/or No No neglect since last visit Have you been in the hospital since your No No last visit? Has dressing in place as prescribed Yes Yes Has compression in place as prescribed Yes Yes Has offloadiing in place as prescribed N/A N/A Experienced any changes in pain level or No No management Left Footwear Regular Shoe Right Footwear Regular Shoe Pain Scale: 0-10 Numeric Is Patient Pain Free? Yes Yes - Nurse 1 - General Ulcer Measurement Start: 10/11/23 09:55 Freq: Status: Active Protocol: Activity Type Activity Date Activity User E-sign Co-sign Detail Recorded Client Recorded Date Recorded By Document 10/11/23 09:55 Desktop 10/11/23 10:02 DL Document 10/18/23 09:49 [facility] Desktop 10/18/23 09:56 [facility] 10/11/23 10/18/23 09:55 09:49 Wound Center Nurse 1 #3 right lateral ankle -Combined with other wound No -Current Size (cm) - Length 2.1 2.2 -Current Size (cm) - Width 2.8 2.4 -Current Size (cm) - Depth 0.3 0.3 -Total Square Cm 5.88 5.28 -Photo Taken Yes No -Tunneling No -Undermining/Tunneling No -Circular Undermining No -Exudate Amt Medium Medium -Exudate Type Serosanguineous Serosanguineous -Wound Margin Distinct, Distinct, Outline Outline Attached Attached -Granulation Amt Medium (34-66%) Small (1-33%) -Granulation Quality Red Red -Slough/Fibrin Yes -Necrosis Amt Medium (34-66%) Large (67-100%) -Necrotic Tissue Type Adherent Slough Adherent Slough -Structure Exposed N/A -Texture (Elif-wound Skin Appearance) Localized Edema Assessed, ,Scarring Scarring -Moisture (Elif-wound Skin Appearance) No Abnormality Assessed,Dry/ Scaly -Color (Elif-wound Skin Appearance) Hemosiderin Assessed, Staining Hemosiderin Staining -Temperature (Elif-wound Skin No Abnormality No Abnormality Appearance) (Pt Warm) (Pt Warm) -Tenderness on Palpation (Elif-wound Yes Yes Skin Appearance) -Ulcer Cleansing Soap and Water Soap and Water -Foul Odor after Cleansing No No -Anesthetic Used 5% Lidocaine 5% Lidocaine Gel Gel Lower Limb Edema Present Yes Right Calf (cm) 35.4 Point of measurement (cm from the medial 36.5 instep) Right Ankle (cm) 24.7 Point of Measurement (cm from the medial 25 instep) WC - Nurse 2 - General Ulcer CM Notes Start: 10/11/23 09:55 Freq: Status: Active Protocol: Activity Type Activity Date Activity User E-sign Co-sign Detail Recorded Client Recorded Date Recorded By Document 10/11/23 10:14 MW Desktop 10/11/23 10:21 MW Document 10/18/23 10:11 Laptop 10/18/23 10:18 10/11/23 10/18/23 10:14 10:11 Wound Center Nurse 2 #3 right lateral ankle -Time 10:15 10:14 -Correct Patient Yes Yes -Correct Side, Site, Position Yes Yes -Correct Procedure Yes Yes -Procedure Performed Yes Yes -Type of Procedure Debridement Debridement -Clinical Debridement Subcutaneous Subcutaneous -Tissue Removed Subcutaneous Subcutaneous -Post Debridement (cm) - Length 2.0 2.2 -Post Debridement (cm) - Width 2.5 2.5 -Post Debridement (cm) - Depth 0.3 0.2 -Total Square (Post) (cm) 5.00 5.50 -Area of Debridement (cm) - Length 2.0 2.2 -Area of Debridement (cm) - Width 2.5 2.5 -Total Square (Area) (cm) 5.00 5.50 -Tunneling No No -Undermining/Tunneling No No -Circular Undermining No No -Wound/Ulcer Outcome Healed- Not Healed Epithelialized -Ulcer Cleansing Rinsed/ Rinsed/ Irrigated with Irrigated with Saline Saline -Foul Odor after Cleansing No No -Bioengineered Tissue Yes Yes -Type of Bioengineered Tissue Epifix Epifix -Expiration Date 07/05/28 07/05/28 -Product Lot Number [id number] -Percent Used 100 100 -Lot number of Saline Used [id number] -Bleeding Controlled with Pressure Pressure -Treatment Response Procedure Procedure Tolerated Well Tolerated Well -Offloading No No -Debridement - Subq, 1st 20sq cm No No -Apply Skin Sub - 1st 25 sq cm - Legs 1 1 -Epifix (per sq cm) 4 4 Pain Scale: 0-10 Numeric Is Patient Pain Free? Yes Yes - Nurse 3 - General Ulcer D/C NN Start: 10/11/23 09:55 Freq: Status: Active Protocol: Activity Type Activity Date Activity User E-sign Co-sign Detail Recorded Client Recorded Date Recorded By Document 10/11/23 10:21 MW Desktop 10/11/23 10:22 MW Document 10/18/23 10:23 KW Desktop 10/18/23 10:24 KW 10/11/23 10/18/23 10:21 10:23 Wound Care Center Nurse 3 #3 right lateral ankle -Ulcer Cleansing Not Cleansed -Negative Pressure Wound Therapy N/A -Primary Dressing Applied Aquacel Extra, Optilok 6.5x10 Mepilex Border -Primary Dressing Covered/Secured with Dry Gauze & Roll Gauze, Secured with Tape -Aquacel Extra 1 -Mepilex Border 1 -Optilok 6.5x10 1 Right -Multi-Layered Wrap Application Multi-Layer Comp - Right ($ ) Treatment Response Procedure Tolerated Well Pain Scale: 0-10 Numeric Is Patient Pain Free? Yes Yes Teaching: Wound Center Dressing Your Wound -Person Taught Patient -Teaching Method Discussion -Response to teaching Verbalize understanding - Visit Discharge Discharge Condition Stable Stable Ambulatory Status Ambulatory Ambulatory,Cane Transportation Private Auto Private Auto Accompanied by self Medication Reconcilliation completed & No No provided to patient/care provider Clinical Summary of Care Provided Yes Yes Assessment/Plan Assessment/Plan (1) Non-pressure ulcer of right lower extremity with fat layer exposed: CODE(S): L97.912 - Non-pressure chronic ulcer of unspecified part of rightlower leg with fat layer exposed PLAN: Patient was examined and evaluated. All findings were discussed with the patient. All questions were answered to the patient's satisfaction. Excisional debridement down to and including subcutaneous tissue with a number 5mm dermal curette to the right distal/ankle ulceration without incident. Predebridement measurement is 2.0 x 2.3 x 0.1 cm. Postdebridement measurement is 2.2 x 2.5 x 0.2 cm. EpiFix 2 x 2 centimeter was applied to the right distal full-thickness ulceration with 100% use. Seventh application. The graft site was free and clear of any infection. The wound/skin graft substitute was dressed with nonadherent bandage secured in place with Steri-Strips followed by bolster dressing as well as a 3M compression wrap. Follow-up at the wound care center with Dr. Johnson in 1 week. (2) Venous insufficiency of right lower extremity: CODE(S): I87.2 - Venous insufficiency (chronic) (peripheral) PLAN: Seen by Dr. Galaviz for her right lower leg edema and abnormal venous ultrasounds. Obvious occlusions to her GSV's and she has discoloration to the leg with swelling and pain. Patient has opted to wait till February to have leg fixed 10/18/23 1152 <Electronically signed by Hugo Johnson DPM> Cosigner Signature (if applicable): CC: ~ Signed [facility] Work Phone: [phone]) 780-930402-07-2024 Progress note Author Mariela Martines [facility] October 11, 2023 10:43am Note Date/Time October 11, 2023 1 0:43am [facility] [address] [place] [address]3 Progress Note - Wound Care 10/11/23 1040 MR#: [id number] Acct: [id number] Name: MARY ALICE GA Rep #:[id number] : 1950 73 From: Mariela Martines NP 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 Khanh Rodriguez MD Status:R EG RCR Location: History of Present Illness Date of Service: 10/11/23 Chief Complaint: Follow-up on her right lower leg lateral area wound nonhealing since at least November. History of Wound: 72-year-old white female in [place] where she is living duringthe winter. She had a growth removed from her right lateral lower leg. She is still not sure if it is cancer or not. After finally getting through to the dermatology she found that they never sent a biopsy off. She saw her own doctor up here and she was referred to us from her and put on cephalexin. Recently she was taken off her Lasix and has terrible edema of her lower extremities and abdomen. Patient states she has gained 9 pounds Patient had been referred to dermatology and has returned after they did Mohs surgery on her right lateral lower leg. They state they got all the cancer out. We will reapply for EpiFix to restart her. We will also also refer to Dr. Galaviz for vascular problems she is having in her right lower leg. Her biggest complaint is that she is swelling a lot in her lower extremities. Worried about a blood clot Now she has breast cancer and is being seen by oncology at [place] for that. She has left total mastectomy on 06/12/2023. She states she is healing well fromthat. Progress of Wound: The right lateral lower leg is the same size may be slightly smaller only because she is growing from the inside out rather than Outside In she has islands of new skin developing which is good with the epi fix. The right whole leg is very edematous and she had canceled her appointment with Dr. Galaviz and is now trying to get back in because she is having a lot of pain in the leg fromthe clogged connectors and her calf and thigh. She still wearing her compression stockings though but she says by the end of the day her knee is justvery swollen with fluid. Subjective Subjective Patient is pleased with the EpiFix and we will continue using EpiFix #6 to the right lateral lower leg Objective Data Objective Data No sign of infection patient healing well slowly because that veins need to be opened and that she would probably heal faster but she is going to try to get that appointment with Dr. Galaviz again. Otherwise she is healing from the inside out on the so debridement around the edges was maintained to get the fibrin off the edge so we will creep and also. Vital Signs: Vital Signs Temp Pulse Resp BP 98 F 66 20 H 128/47 H 10/11/23 09:55 10/11/23 09:55 10/11/23 09:55 10/11/23 09:55 Lab / Micro Data Attestation: I reviewed the patient's lab results. Debridement Note Debridement Note Wound debrided: Right francis Laterality: Right No debridement was completed: No debridement was completed today Post-Debridement Measurements and Additional Note: Post-Debridement Measurements/Treatment WC - Nurse 1 - General Ulcer Assessment Start: 10/11/23 09:55 Freq: Status: Active Protocol: SAHIL Activity Type Activity Date Activity User E-sign Co-sign Detail Recorded Client Recorded Date Recorded By Document 10/11/23 09:55 DL Desktop 10/11/23 10:02 DL 10/11/23 09:55 WC - Today's Visit Information Type of service Follow-up Visit (Physician/REAL ESTATE LEGAL ASSISTANT ) Arrival Mode Ambulatory Transfer Assistance None Patient Identification Verified (Name & Yes ) Patient Requires Transmission-Based No Precautions Vital Signs Temperature (97.8 F-99.1 F) 98 F Temperature Source Temporal Pulse Rate (60-100) 66 Pulse Location Monitor Respiratory Rate (12-18) 20 H Respiratory rate source Observation Blood Pressure (90/60-120/80) 128/47 H Blood Pressure Mean (mm Hg) 74 Source Monitor History Since Last Visit- (Skip if this is Patient's initial visit) Have you changed medications since your No last visit? Any new allergies or adverse reactions No Had a fall/change in ADL's that may No increase risk of falls Signs or symptoms of abuse and/or No neglect since last visit Have you been in the hospital since your No last visit? Has dressing in place as prescribed Yes Has compression in place as prescribed Yes Has offloadiing in place as prescribed N/A Experienced any changes in pain level or No management Pain Scale: 0-10 Numeric Is Patient Pain Free? Yes - Nurse 1 - General Ulcer Measurement Start: 10/11/23 09:55 Freq: Status: Active Protocol: Activity Type Activity Date Activity User E-sign Co-sign Detail Recorded Client Recorded Date Recorded By Document 10/11/23 09:55 DL Desktop 10/11/23 10:02 DL 10/11/23 09:55 Wound Center Nurse 1 #3 right lateral ankle -Current Size (cm) - Length 2.1 -Current Size (cm) - Width 2.8 -Current Size (cm) - Depth 0.3 -Total Square Cm 5.88 -Photo Taken Yes -Exudate Amt Medium -Exudate Type Serosanguineous -Wound Margin Distinct, Outline Attached -Granulation Amt Medium (34-66%) -Granulation Quality Red -Necrosis Amt Medium (34-66%) -Necrotic Tissue Type Adherent Slough -Structure Exposed N/A -Texture (Elif-wound Skin Appearance) Localized Edema ,Scarring -Moisture (Elif-wound Skin Appearance) No Abnormality -Color (Elif-wound Skin Appearance) Hemosiderin Staining -Temperature (Elif-wound Skin No Abnormality Appearance) (Pt Warm) -Tenderness on Palpation (Elif-wound Yes Skin Appearance) -Ulcer Cleansing Soap and Water -Foul Odor after Cleansing No -Anesthetic Used 5% Lidocaine Gel Point of measurement (cm from the medial 36.5 instep) Point of Measurement (cm from the medial 25 instep) WC - Nurse 2 - General Ulcer CM Notes Start: 10/11/23 09:55 Freq: Status: Active Protocol: Activity Type Activity Date Activity User E-sign Co-sign Detail Recorded Client Recorded Date Recorded By Document 10/11/23 10:14 MW Desktop 10/11/23 10:21 MW 10/11/23 10:14 Wound Center Nurse 2 #3 right lateral ankle -Time 10:15 -Correct Patient Yes -Correct Side, Site, Position Yes -Correct Procedure Yes -Procedure Performed Yes -Type of Procedure Debridement -Clinical Debridement Subcutaneous -Tissue Removed Subcutaneous -Post Debridement (cm) - Length 2.0 -Post Debridement (cm) - Width 2.5 -Post Debridement (cm) - Depth 0.3 -Total Square (Post) (cm) 5.00 -Area of Debridement (cm) - Length 2.0 -Area of Debridement (cm) - Width 2.5 -Total Square (Area) (cm) 5.00 -Tunneling No -Undermining/Tunneling No -Circular Undermining No -Wound/Ulcer Outcome Healed- Epithelialized -Ulcer Cleansing Rinsed/ Irrigated with Saline -Foul Odor after Cleansing No -Bioengineered Tissue Yes -Type of Bioengineered Tissue Epifix -Expiration Date 07/05/28 -Product Lot Number [id number] -Percent Used 100 -Lot number of Saline Used [id number] -Bleeding Controlled with Pressure -Treatment Response Procedure Tolerated Well -Offloading No -Debridement - Subq, 1st 20sq cm No -Apply Skin Sub - 1st 25 sq cm - Legs 1 -Epifix (per sq cm) 4 Pain Scale: 0-10 Numeric Is Patient Pain Free? Yes - Nurse 3 - General Ulcer D/C NN Start: 10/11/23 09:55 Freq: Status: Active Protocol: Activity Type Activity Date Activity User E-sign Co-sign Detail Recorded Client Recorded Date Recorded By Document 10/11/23 10:21 MW Desktop 10/11/23 10:22 MW 10/11/23 10:21 Wound Care Center Nurse 3 #3 right lateral ankle -Ulcer Cleansing Not Cleansed -Negative Pressure Wound Therapy N/A -Primary Dressing Applied Aquacel Extra, Mepilex Border -Aquacel Extra 1 -Mepilex Border 1 Treatment Response Procedure Tolerated Well Pain Scale: 0-10 Numeric Is Patient Pain Free? Yes Teaching: Wound Center Dressing Your Wound -Person Taught Patient -Teaching Method Discussion -Response to teaching Verbalize understanding WC - Visit Discharge Discharge Condition Stable Ambulatory Status Ambulatory Transportation Private Auto Accompanied by self Medication Reconcilliation completed & No provided to patient/care provider Clinical Summary of Care Provided Yes Additional Wound Wound debrided: Right ankle venous ulcer Laterality: Right Type of Debridement: Excisional debridement Anesthesia Used: 5% Lidocaine Gel Depth: in the subcutaneous layer Percentage of wound debrided: 100 Instrument Used: 3mm curette Tissue Removed: Fibrin Severity: Fat Layer Exposed Amount of bleeding with debridement: Mild Bleeding Controlled with: Compression and gauze Patient tolerated procedure: Patient tolerated procedure well Assessment/Plan Assessment/Plan (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: CODE(S): C44.721 - Squamous cell carcinoma of skin of unspecified lower limb, including hip QUALIFIERS: Laterality: right Qualified Code(s): C44.722 - Squamous cell carcinoma of skin of right lower limb, including hip PLAN: Wound resolved (2) Venous ulcer of ankle: CODE(S): I83.003 - Varicose veins of unspecified lower extremity with ulcer of ankle; L97.309 - Non-pressure chronic ulcer of unspecified ankle with unspecified severity QUALIFIERS: Varicose vein presence: with varicose veins Laterality: right Non-pressure ulcer stage: limited to breakdown of skin Qualified Code(s): I83.013 - 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 Galaviz for her right lower leg edema and abnormal venous ultrasounds. Obvious occlusions to her GSV's and she has discoloration to the leg with swelling and pain. Patient has opted to wait till February to have leg fixed (3) Non-pressure ulcer of right lower extremity: CODE(S): L97.919 - Non-pressure chronic ulcer of unspecified part of rightlower leg with unspecified severity QUALIFIERS: Non-pressure ulcer stage: with fat layer exposed Qualified Code(s): L97.912 - Non-pressure chronic ulcer of unspecified part of right lower leg with fat layer exposed PLAN: EpiFix #6 applied wound veil over top and Steri-Strips then Aquacel extra and a dry dressing Follow-up in 1 week another provider. (4) Nonhealing nonsurgical wound: CODE(S): T14.8XXA - Other injury of unspecified body region, initial encounter 10/11/23 1043 <Electronically signed by Mariela Martines NP CASTING REPAIRER-C> Cosigner Signature (if applicable): CC: ~ Signed [facility] Work Phone: [phone]) 501-921401-31-2024 Progress note Author Mariela Martines [facility] October 04, 2023 12:13pm Note Date/Time October 04, 2023 1 2:13pm [facility] [address] [place] [address] Progress Note - Wound Care 10/04/23 1210 MR#: [id number] Acct: [id number] Name: MARY ALICE GA Rep #:[id number] : 1950 73 From: Mariela Martines NP 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 Khanh Rodriguez MD Status:R EG RCR Location: History of Present Illness Date of Service: 10/04/23 Chief Complaint: Follow-up on her right lower leg lateral area wound nonhealing since at least November. History of Wound: 72-year-old white female in [place] where she is living duringthe winter. She had a growth removed from her right lateral lower leg. She is still not sure if it is cancer or not. After finally getting through to the dermatology she found that they never sent a biopsy off. She saw her own doctor up here and she was referred to us from her and put on cephalexin. Recently she was taken off her Lasix and has terrible edema of her lower extremities and abdomen. Patient states she has gained 9 pounds Patient had been referred to dermatology and has returned after they did Mohs surgery on her right lateral lower leg. They state they got all the cancer out. We will reapply for EpiFix to restart her. We will also also refer to Dr. Galaviz for vascular problems she is having in her right lower leg. Her biggest complaint is that she is swelling a lot in her lower extremities. Worried about a blood clot Now she has breast cancer and is being seen by oncology at [place] for that. She has left total mastectomy on 06/12/2023. She states she is healing well fromthat. Progress of Wound: The francis wound is healed. The right lateral ankle wound is filling in nicely has islands of new skin developing almost into a horseshoe shape. No sign of infection no odor still very tender for her we will continue to debride the edges. Will continue using the EpiFix doing well Patient was seen by Dr. Galaviz and was told that she has 2 vessels that need to be fixed in her right lower leg patient is going to wait till she comes back in February. Patient would like to leave for [place] in October Subjective Subjective Patient agrees with plan of care of using EpiFix Objective Data Objective Data No sign of infection wound is healing with islands of new skin developing from the inside out tolerating the EpiFix well. Vital Signs: Vital Signs Temp Pulse Resp BP O2 Del Method 97.1 F L 62 16 112/50 L Room Air 10/04/23 09:58 10/04/23 09:58 10/04/23 09:58 10/04/23 09:58 10/04/23 09:58 Oxygen Delivery Method Room Air Physical Exam Const oriented x3 General Appearance: cooperative Exam Limitations: no limitations HEENT normocephalic Head and Scalp: normal to inspection Face and Sinus: normal facial exam Nose: external nose normal General Ear: hearing grossly impaired External Ear: external ears normal Mouth: oral and palatal mucosa normal Eyes PERRL General Eye: normal appearance of both eyes Neck full ROM General: normal visual inspection Resp normal respiratory effort Effort and Inspection: able to speak in complete sentences Auscultation: clear to auscultation bilaterally Cardio regular rate and regular rhythm Palpation: normal PMI Rate: regular rate Rhythm: regular rhythm GI Auscultation: normoactive bowel sounds Palpation: soft and no hepatosplenomegaly external exam normal Back/Spine Cervical Spine: cervical ROM normal Thoracic Spine / Upper Back: normal to inspection Lumbar Spine / Lower Back: normal to inspection Extremity normal to inspection General Extremity: normal exam except as noted Skin no rashes or lesions noted Neuro oriented x3 Psych Appearance: grossly normal Speech: normal speech Thought Content: normal thought content Judgement: judgement good Debridement Note Debridement Note Wound debrided: Right francis Laterality: Right No debridement was completed: No debridement was completed today Post-Debridement Measurements and Additional Note: Post-Debridement Measurements/Treatment - Nurse 1 - General Ulcer Assessment Start: 09/06/23 09:48 Freq: Status: Active Protocol: [email or web address].[email or web address] Activity Type Activity Date Activity User E-sign Co-sign Detail Recorded Client Recorded Date Recorded By Document 09/06/23 09:49 DL Desktop 09/06/23 09:59 DL Document 09/13/23 09:49 DL Desktop 09/13/23 09:58 DL Document 09/27/23 09:58 BMF Desktop 09/27/23 10:01 BMF Document 10/04/23 09:58 BMF Desktop 10/04/23 10:09 BMF 09/06/23 09/13/23 09/27/23 09:49 09:49 09:58 - Today's Visit Information Type of service Follow-up Visit Follow-up Visit Follow-up Visit (Physician/REAL ESTATE LEGAL ASSISTANT (Physician/REAL ESTATE LEGAL ASSISTANT (Physician/REAL ESTATE LEGAL ASSISTANT ) ) ) Arrival Mode Ambulatory Ambulatory,Cane Ambulatory,Cane Transfer Assistance None None None Patient Identification Verified (Name & Yes Yes Yes ) Patient Requires Transmission-Based No No Precautions Vital Signs Temperature (97.8 F-99.1 F) 97.3 F L 96.2 F L 97.2 F L Temperature Source Temporal Temporal Temporal Pulse Rate (60-100) 70 65 70 Pulse Location Monitor Monitor Monitor Respiratory Rate (12-18) 20 H 20 H 16 Respiratory rate source Observation Observation Observation Oxygen Delivery Method Room Air Blood Pressure (90/60-120/80) 123/69 H 120/54 L 139/62 H Blood Pressure Mean (mm Hg) 87 76 87 Source Monitor Monitor Monitor Position Sitting Sitting Blood Pressure Location Right Arm History Since Last Visit- (Skip if this is Patient's initial visit) Have you changed medications since your No No No last visit? Any new allergies or adverse reactions No No No Had a fall/change in ADL's that may No No No increase risk of falls Signs or symptoms of abuse and/or No No No neglect since last visit Have you been in the hospital since your No No No last visit? Has dressing in place as prescribed Yes Yes Yes Has compression in place as prescribed Yes Yes Yes Has offloadiing in place as prescribed N/A N/A N/A Experienced any changes in pain level or No No No management Left Footwear Regular Shoe Regular Shoe Right Footwear Regular Shoe Regular Shoe Pain Scale: 0-10 Numeric Is Patient Pain Free? Yes Yes Yes 10/04/23 09:58 WC - Today's Visit Information Type of service Follow-up Visit (Physician/REAL ESTATE LEGAL ASSISTANT ) Arrival Mode Ambulatory,Cane Transfer Assistance None Patient Identification Verified (Name & Yes ) Patient Requires Transmission-Based No Precautions Vital Signs Temperature (97.8 F-99.1 F) 97.1 F L Temperature Source Temporal Pulse Rate (60-100) 62 Pulse Location Monitor Respiratory Rate (12-18) 16 Respiratory rate source Observation Oxygen Delivery Method Room Air Blood Pressure (90/60-120/80) 112/50 L Blood Pressure Mean (mm Hg) 70 Source Monitor Position Sitting Blood Pressure Location Right Arm History Since Last Visit- (Skip if this is Patient's initial visit) Have you changed medications since your No last visit? Any new allergies or adverse reactions No Had a fall/change in ADL's that may No increase risk of falls Signs or symptoms of abuse and/or No neglect since last visit Have you been in the hospital since your No last visit? Has dressing in place as prescribed Yes Has compression in place as prescribed Yes Has offloadiing in place as prescribed N/A Experienced any changes in pain level or No management Left Footwear Regular Shoe Right Footwear Regular Shoe Pain Scale: 0-10 Numeric Is Patient Pain Free? Yes WC - Nurse 1 - General Ulcer Measurement Start: 09/06/23 09:48 Freq: Status: Active Protocol: Activity Type Activity Date Activity User E-sign Co-sign Detail Recorded Client Recorded Date Recorded By Document 09/06/23 09:49 DL Desktop 09/06/23 09:59 DL Document 09/13/23 09:49 DL Desktop 09/13/23 09:58 DL Document 09/27/23 09:58 BMF Desktop 09/27/23 10:01 BMF Document 10/04/23 09:58 BMF Desktop 10/04/23 10:09 BMF 09/06/23 09/13/23 09/27/23 09:49 09:49 09:58 Wound Center Nurse 1 #1- R LAT LE (P/O BASAL CELL CA) -Combined with other wound No No -Current Size (cm) - Length 1.3 0.6 0.1 -Current Size (cm) - Width 1.3 1 0.1 -Current Size (cm) - Depth 0.1 0.1 0.1 -Total Square Cm 1.69 0.6 0.01 -Date of Last Picture (Recall this 09/06/23 09/27/23 field) -Photo Taken Yes -Epithelialization Large 67-100% -Exudate Amt Medium Small -Exudate Type Serosanguineous -Wound Margin Distinct, Distinct, Outline Outline Attached Attached -Granulation Amt Large (67-100%) Large (67-100%) -Granulation Quality [place],Red [place] -Necrosis Amt None Present (0 Small (1-33%) %) -Necrotic Tissue Type Adherent Slough -Structure Exposed N/A N/A -Texture (Elif-wound Skin Appearance) Scarring Scarring Assessed, Scarring -Moisture (Elif-wound Skin Appearance) No Abnormality No Abnormality Assessed -Color (Elif-wound Skin Appearance) Hemosiderin Hemosiderin Assessed Staining Staining -Temperature (Elif-wound Skin No Abnormality No Abnormality No Abnormality Appearance) (Pt Warm) (Pt Warm) (Pt Warm) -Tenderness on Palpation (Elif-wound Yes No Skin Appearance) -Ulcer Cleansing Soap and Water Soap and Water Soap and Water -Foul Odor after Cleansing No No No -Anesthetic Used 5% Lidocaine 5% Lidocaine Gel Gel #3 right lateral ankle -Combined with other wound No -Current Size (cm) - Length 1.6 1.5 1.7 -Current Size (cm) - Width 1.2 2 2.2 -Current Size (cm) - Depth 0.4 0.2 0.2 -Total Square Cm 1.92 3.0 3.74 -Date of Last Picture (Recall this 09/06/23 09/27/23 field) -Photo Taken Yes No Yes -Epithelialization None Present -Tunneling No -Undermining/Tunneling No -Circular Undermining No -Exudate Amt Medium Medium Medium -Exudate Type Serosanguineous Serosanguineous Serosanguineous -Wound Margin Distinct, Distinct, Distinct, Outline Outline Outline Attached Attached Attached -Granulation Amt None Present (0 Small (1-33%) Medium (34-66%) %) -Granulation Quality Red Red -Slough/Fibrin Yes -Necrosis Amt Large (67-100%) Large (67-100%) Medium (34-66%) -Necrotic Tissue Type Adherent Slough Adherent Slough Adherent Slough -Structure Exposed N/A N/A -Texture (Elif-wound Skin Appearance) Assessed Scarring Assessed, Scarring -Moisture (Elif-wound Skin Appearance) Assessed No Abnormality Assessed -Color (Elif-wound Skin Appearance) Assessed Hemosiderin Assessed, Staining Erythema -Temperature (Elif-wound Skin No Abnormality No Abnormality No Abnormality Appearance) (Pt Warm) (Pt Warm) (Pt Warm) -Tenderness on Palpation (Elif-wound Yes Yes No Skin Appearance) -Ulcer Cleansing Soap and Water Soap and Water Soap and Water -Foul Odor after Cleansing No No No -Anesthetic Used 5% Lidocaine 5% Lidocaine 5% Lidocaine Gel Gel Gel Lower Limb Edema Present Right Calf (cm) 33 31.5 32 Right Ankle (cm) 23.5 23.5 23.4 10/04/23 09:58 Wound Center Nurse 1 #1- R LAT LE (P/O BASAL CELL CA) -Combined with other wound -Current Size (cm) - Length -Current Size (cm) - Width -Current Size (cm) - Depth -Total Square Cm -Date of Last Picture (Recall this field) -Photo Taken -Epithelialization -Exudate Amt -Exudate Type -Wound Margin -Granulation Amt -Granulation Quality -Necrosis Amt -Necrotic Tissue Type -Structure Exposed -Texture (Elif-wound Skin Appearance) -Moisture (Elif-wound Skin Appearance) -Color (Elif-wound Skin Appearance) -Temperature (Elif-wound Skin Appearance) -Tenderness on Palpation (Elif-wound Skin Appearance) -Ulcer Cleansing -Foul Odor after Cleansing -Anesthetic Used #3 right lateral ankle -Combined with other wound No -Current Size (cm) - Length 2.2 -Current Size (cm) - Width 2.5 -Current Size (cm) - Depth 0.3 -Total Square Cm 5.50 -Date of Last Picture (Recall this field) -Photo Taken No -Epithelialization None Present -Tunneling No -Undermining/Tunneling No -Circular Undermining No -Exudate Amt Large -Exudate Type Serosanguineous -Wound Margin Distinct, Outline Attached -Granulation Amt Small (1-33%) -Granulation Quality Red -Slough/Fibrin Yes -Necrosis Amt Large (67-100%) -Necrotic Tissue Type Adherent Slough -Structure Exposed -Texture (Elif-wound Skin Appearance) Assessed, Scarring -Moisture (Elif-wound Skin Appearance) Assessed,Dry/ Scaly -Color (Elif-wound Skin Appearance) Assessed, Hemosiderin Staining -Temperature (Elif-wound Skin No Abnormality Appearance) (Pt Warm) -Tenderness on Palpation (Elif-wound No Skin Appearance) -Ulcer Cleansing Soap and Water -Foul Odor after Cleansing No -Anesthetic Used 5% Lidocaine Gel Lower Limb Edema Present Yes Right Calf (cm) 32.8 Right Ankle (cm) 25.3 WC - Nurse 2 - General Ulcer CM Notes Start: 09/06/23 09:48 Freq: Status: Active Protocol: Activity Type Activity Date Activity User E-sign Co-sign Detail Recorded Client Recorded Date Recorded By Document 09/06/23 10:04 JF Laptop 09/06/23 10:11 JF Document 09/13/23 10:05 MW Desktop 09/13/23 10:15 MW Edit Result 09/13/23 10:05 MW (1) [id number] 09/14/23 06:58 PL Document 09/27/23 10:12 MW Desktop 09/27/23 10:18 MW Document 10/04/23 10:15 MW Desktop 10/04/23 10:21 MW (1) #3 right lateral ankle - Apply Skin Sub - 1st 25 sq cm - Legs => 1 09/06/23 09/13/23 09/27/23 10:04 10:05 10:12 Wound Center Nurse 2 #1- R LAT LE (P/O BASAL CELL CA) -Time 10:05 10:08 10:16 -Correct Patient Yes Yes Yes -Correct Side, Site, Position Yes Yes Yes -Correct Procedure Yes Yes Yes -Procedure Performed Yes Yes No -Type of Procedure Debridement Debridement -Clinical Debridement Subcutaneous Subcutaneous -Tissue Removed Subcutaneous Subcutaneous -Post Debridement (cm) - Length 1.5 0.2 0 -Post Debridement (cm) - Width 1.5 0.2 0 -Post Debridement (cm) - Depth 0.1 0.1 0 -Total Square (Post) (cm) 2.25 0.04 0 -Area of Debridement (cm) - Length 1.5 0.2 -Area of Debridement (cm) - Width 1.5 0.2 -Total Square (Area) (cm) 2.25 0.04 -Tunneling No No No -Undermining/Tunneling No No No -Circular Undermining No No No -Wound/Ulcer Outcome Not Healed Not Healed Not Healed -Ulcer Cleansing Rinsed/ Rinsed/ Irrigated with Irrigated with Saline Saline -Foul Odor after Cleansing No No -Bioengineered Tissue No No -Bleeding Controlled with Pressure Pressure -Treatment Response Procedure Procedure Tolerated Well Tolerated Well -Offloading No No -Debridement - Subq, 1st 20sq cm Yes Yes #3 right lateral ankle -Time 10:04 10:06 10:14 -Correct Patient Yes Yes Yes -Correct Side, Site, Position Yes Yes Yes -Correct Procedure Yes Yes Yes -Procedure Performed Yes Yes Yes -Type of Procedure Debridement Debridement Debridement -Clinical Debridement Subcutaneous Subcutaneous Subcutaneous -Tissue Removed Subcutaneous Subcutaneous Subcutaneous -Post Debridement (cm) - Length 1.5 1.9 1.8 -Post Debridement (cm) - Width 1.5 1.7 2.0 -Post Debridement (cm) - Depth 0.2 0.3 0.3 -Total Square (Post) (cm) 2.25 3.23 3.60 -Area of Debridement (cm) - Length 1.5 1.9 1.8 -Area of Debridement (cm) - Width 1.5 1.7 2.0 -Total Square (Area) (cm) 2.25 3.23 3.60 -Tunneling No No No -Undermining/Tunneling No No No -Circular Undermining No No No -Wound/Ulcer Outcome Not Healed Not Healed Not Healed -Ulcer Cleansing Rinsed/ Rinsed/ Rinsed/ Irrigated with Irrigated with Irrigated with Saline Saline Saline -Foul Odor after Cleansing No No No -Bioengineered Tissue Yes Yes Yes -Type of Bioengineered Tissue Epifix -Type of Bioengineered Tissue Epifix Epifix -Expiration Date 05/05/28 05/05/28 05/05/28 -Product Lot Number [id number] -Percent Used 100 100 100 -Lot number of Saline Used [id number] -Bleeding Controlled with Pressure Pressure Pressure -Treatment Response Procedure Procedure Procedure Tolerated Well Tolerated Well Tolerated Well -Offloading No No No -Debridement - Subq, 1st 20sq cm No No No -Apply Skin Sub - 1st 25 sq cm - Legs 1 1 1 -Epifix (per sq cm) 4 4 4 Pain Scale: 0-10 Numeric Is Patient Pain Free? Yes Yes Yes 10/04/23 10:15 Wound Center Nurse 2 #1- R LAT LE (P/O BASAL CELL CA) -Time -Correct Patient -Correct Side, Site, Position -Correct Procedure -Procedure Performed -Type of Procedure -Clinical Debridement -Tissue Removed -Post Debridement (cm) - Length -Post Debridement (cm) - Width -Post Debridement (cm) - Depth -Total Square (Post) (cm) -Area of Debridement (cm) - Length -Area of Debridement (cm) - Width -Total Square (Area) (cm) -Tunneling -Undermining/Tunneling -Circular Undermining -Wound/Ulcer Outcome -Ulcer Cleansing -Foul Odor after Cleansing -Bioengineered Tissue -Bleeding Controlled with -Treatment Response -Offloading -Debridement - Subq, 1st 20sq cm #3 right lateral ankle -Time 10:17 -Correct Patient Yes -Correct Side, Site, Position Yes -Correct Procedure Yes -Procedure Performed Yes -Type of Procedure Debridement -Clinical Debridement Subcutaneous -Tissue Removed Subcutaneous -Post Debridement (cm) - Length 1.7 -Post Debridement (cm) - Width 2.3 -Post Debridement (cm) - Depth 0.3 -Total Square (Post) (cm) 3.91 -Area of Debridement (cm) - Length 1.7 -Area of Debridement (cm) - Width 2.3 -Total Square (Area) (cm) 3.91 -Tunneling No -Undermining/Tunneling No -Circular Undermining No -Wound/Ulcer Outcome Not Healed -Ulcer Cleansing Rinsed/ Irrigated with Saline -Foul Odor after Cleansing No -Bioengineered Tissue Yes -Type of Bioengineered Tissue Epifix -Type of Bioengineered Tissue -Expiration Date 06/04/28 -Product Lot Number [id number] -Percent Used 100 -Lot number of Saline Used [id number] -Bleeding Controlled with Pressure -Treatment Response Procedure Tolerated Well -Offloading No -Debridement - Subq, 1st 20sq cm No -Apply Skin Sub - 1st 25 sq cm - Legs 1 -Epifix (per sq cm) 4 Pain Scale: 0-10 Numeric Is Patient Pain Free? Yes WC - Nurse 3 - General Ulcer D/C NN Start: 09/06/23 09:48 Freq: Status: Active Protocol: Activity Type Activity Date Activity User E-sign Co-sign Detail Recorded Client Recorded Date Recorded By Document 09/06/23 10:21 DL Desktop 09/06/23 10:23 DL Document 09/13/23 10:21 MW Desktop 09/13/23 10:22 MW Document 09/27/23 10:22 DL Desktop 09/27/23 10:24 DL Document 10/04/23 10:21 MW Desktop 10/04/23 10:22 MW 09/06/23 09/13/23 09/27/23 10:21 10:21 10:22 Wound Care Center Nurse 3 #1- R LAT LE (P/O BASAL CELL CA) -Ulcer Cleansing Not Cleansed -Foul Odor after Cleansing No No -Negative Pressure Wound Therapy N/A -Primary Dressing Applied Mepilex Border Mepilex Border -Other Dressing epifix -Primary Dressing Covered/Secured with Dry Gauze -Mepilex Border 1 1 #3 right lateral ankle -Ulcer Cleansing Not Cleansed -Foul Odor after Cleansing No No No -Negative Pressure Wound Therapy N/A -Primary Dressing Applied Mepilex Border Mepilex Border Aquacel Extra, Mepilex Border -Other Dressing Epifix Epifix -Primary Dressing Covered/Secured with Dry Gauze -Aquacel Extra 1 -Mepilex Border 1 1 1 albert -Stockings Yes Yes Treatment Response Procedure Procedure Procedure Tolerated Well Tolerated Well Tolerated Well Pain Scale: 0-10 Numeric Is Patient Pain Free? Yes Yes Yes Teaching: Wound Center Dressing Your Wound -Person Taught Patient -Teaching Method Discussion, Demonstration -Response to teaching Verbalize understanding WC - Visit Discharge Discharge Condition Stable Stable Stable Ambulatory Status Ambulatory,Cane Ambulatory,Cane Ambulatory,Cane Transportation Private Auto Private Auto Private Auto Accompanied by self Medication Reconcilliation completed & No provided to patient/care provider Clinical Summary of Care Provided Yes 10/04/23 10:21 Wound Care Center Nurse 3 #1- R LAT LE (P/O BASAL CELL CA) -Ulcer Cleansing -Foul Odor after Cleansing -Negative Pressure Wound Therapy -Primary Dressing Applied -Other Dressing -Primary Dressing Covered/Secured with -Mepilex Border #3 right lateral ankle -Ulcer Cleansing Not Cleansed -Foul Odor after Cleansing -Negative Pressure Wound Therapy -Primary Dressing Applied Aquacel Extra, Mepilex Border -Other Dressing -Primary Dressing Covered/Secured with -Aquacel Extra 1 -Mepilex Border 1 albert -Stockings Treatment Response Procedure Tolerated Well Pain Scale: 0-10 Numeric Is Patient Pain Free? Yes Teaching: Wound Center Dressing Your Wound -Person Taught Patient -Teaching Method Discussion -Response to teaching Verbalize understanding WC - Visit Discharge Discharge Condition Stable Ambulatory Status Ambulatory,Cane Transportation Private Auto Accompanied by SELF Medication Reconcilliation completed & No provided to patient/care provider Clinical Summary of Care Provided Yes Additional Wound Wound debrided: Right ankle venous ulcer Laterality: Right Type of Debridement: Excisional debridement Anesthesia Used: 5% Lidocaine Gel Depth: in the subcutaneous layer Percentage of wound debrided: 100 Instrument Used: 3mm curette Tissue Removed: Fibrin Severity: Fat Layer Exposed Amount of bleeding with debridement: Mild Bleeding Controlled with: Compression and gauze Patient tolerated procedure: Patient tolerated procedure well Assessment/Plan Assessment/Plan (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: CODE(S): C44.721 - Squamous cell carcinoma of skin of unspecified lower limb, including hip QUALIFIERS: Laterality: right Qualified Code(s): C44.722 - Squamous cell carcinoma of skin of right lower limb, including hip PLAN: Wound resolved (2) Venous ulcer of ankle: CODE(S): I83.003 - Varicose veins of unspecified lower extremity with ulcer of ankle; L97.309 - Non-pressure chronic ulcer of unspecified ankle with unspecified severity QUALIFIERS: Varicose vein presence: with varicose veins Laterality: right Non-pressure ulcer stage: limited to breakdown of skin Qualified Code(s): I83.013 - 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 Galaviz for her right lower leg edema and abnormal venous ultrasounds. Obvious occlusions to her GSV's and she has discoloration to the leg with swelling and pain. Patient has opted to wait till February to have leg fixed (3) Non-pressure ulcer of right lower extremity: CODE(S): L97.919 - Non-pressure chronic ulcer of unspecified part of rightlower leg with unspecified severity QUALIFIERS: Non-pressure ulcer stage: with fat layer exposed Qualified Code(s): L97.912 - Non-pressure chronic ulcer of unspecified part of right lower leg with fat layer exposed PLAN: EpiFix #5 applied wound veil over top and Steri-Strips then Aquacel extra and a dry dressing Follow-up in 1 week . (4) Nonhealing nonsurgical wound: CODE(S): T14.8XXA - Other injury of unspecified body region, initial encounter 10/04/23 1213 <Electronically signed by Mariela Martines NP CASTING REPAIRER-C> Cosigner Signature (if applicable): CC: ~ Signed [facility] Work Phone: [phone] Progress note Author Mariela Martines [facility] September 27, 2023 10:46am Note Date/Time September 27, 2023 1 0:39am [facility] [address] [place] [address] Progress Note - Wound Care 09/27/23 1037 MR#: [id number] Acct: [id number] Name: MARY ALICE GA Rep #:[id number] : 1950 73 From: Mariela Martines NP 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 Khanh Rodriguez MD Status:R EG RCR Location: History of Present Illness Date of Service: 09/27/23 Chief Complaint: Follow-up on her right lower leg lateral area wound nonhealing since at least November. History of Wound: 72-year-old white female in [place] where she is living duringthe winter. She had a growth removed from her right lateral lower leg. She is still not sure if it is cancer or not. After finally getting through to the dermatology she found that they never sent a biopsy off. She saw her own doctor up here and she was referred to us from her and put on cephalexin. Recently she was taken off her Lasix and has terrible edema of her lower extremities and abdomen. Patient states she has gained 9 pounds Patient had been referred to dermatology and has returned after they did Mohs surgery on her right lateral lower leg. They state they got all the cancer out. We will reapply for EpiFix to restart her. We will also also refer to Dr. Galaviz for vascular problems she is having in her right lower leg. Her biggest complaint is that she is swelling a lot in her lower extremities. Worried about a blood clot Now she has breast cancer and is being seen by oncology at [place] for that. She has left total mastectomy on 06/12/2023. She states she is healing well fromthat. Progress of Wound: The francis wound is healed. The right lateral ankle wound is filling in nicely has islands of new skin developing almost into a horseshoe shape. No sign of infection no odor still very tender for her we will continue to debride the edges. Subjective Subjective Patient is agreeable to plan we will continue with the EpiFix Objective Data Objective Data Size is about the same but does have islands of new skin inside the base of the wound we will continue using EpiFix #4 to wound base. No sign of infection noted Right lateral francis is healed Vital Signs: Vital Signs Temp Pulse Resp BP O2 Del Method 97.2 F L 70 16 139/62 H Room Air 09/27/23 09:58 09/27/23 09:58 09/27/23 09:58 09/27/23 09:58 09/27/23 09:58 Oxygen Delivery Method Room Air Lab / Micro Data Attestation: I reviewed the patient's lab results. Physical Exam Const oriented x3 General Appearance: cooperative Exam Limitations: no limitations HEENT normocephalic Head and Scalp: normal to inspection Face and Sinus: normal facial exam Nose: external nose normal General Ear: hearing grossly impaired External Ear: external ears normal Mouth: oral and palatal mucosa normal Eyes PERRL General Eye: normal appearance of both eyes Neck full ROM General: normal visual inspection Resp normal respiratory effort Effort and Inspection: able to speak in complete sentences Auscultation: clear to auscultation bilaterally Cardio regular rate and regular rhythm Palpation: normal PMI Rate: regular rate Rhythm: regular rhythm GI Auscultation: normoactive bowel sounds Palpation: soft and no hepatosplenomegaly external exam normal Back/Spine Cervical Spine: cervical ROM normal Thoracic Spine / Upper Back: normal to inspection Lumbar Spine / Lower Back: normal to inspection Extremity normal to inspection General Extremity: normal exam except as noted Skin no rashes or lesions noted Neuro oriented x3 Psych Appearance: grossly normal Speech: normal speech Thought Content: normal thought content Judgement: judgement good Debridement Note Debridement Note Wound debrided: Right francis Laterality: Right No debridement was completed: No debridement was completed today Post-Debridement Measurements and Additional Note: Post-Debridement Measurements/Treatment - Nurse 1 - General Ulcer Assessment Start: 09/06/23 09:48 Freq: Status: Active Protocol: SAHIL Activity Type Activity Date Activity User E-sign Co-sign Detail Recorded Client Recorded Date Recorded By Document 09/06/23 09:49 DL Desktop 09/06/23 09:59 DL Document 09/13/23 09:49 DL Desktop 09/13/23 09:58 DL Document 09/27/23 09:58 BMF Desktop 09/27/23 10:01 BMF 09/06/23 09/13/23 09/27/23 09:49 09:49 09:58 - Today's Visit Information Type of service Follow-up Visit Follow-up Visit Follow-up Visit (Physician/REAL ESTATE LEGAL ASSISTANT (Physician/REAL ESTATE LEGAL ASSISTANT (Physician/REAL ESTATE LEGAL ASSISTANT ) ) ) Arrival Mode Ambulatory Ambulatory,Cane Ambulatory,Cane Transfer Assistance None None None Patient Identification Verified (Name & Yes Yes Yes ) Patient Requires Transmission-Based No No Precautions Vital Signs Temperature (97.8 F-99.1 F) 97.3 F L 96.2 F L 97.2 F L Temperature Source Temporal Temporal Temporal Pulse Rate (60-100) 70 65 70 Pulse Location Monitor Monitor Monitor Respiratory Rate (12-18) 20 H 20 H 16 Respiratory rate source Observation Observation Observation Oxygen Delivery Method Room Air Blood Pressure (90/60-120/80) 123/69 H 120/54 L 139/62 H Blood Pressure Mean (mm Hg) 87 76 87 Source Monitor Monitor Monitor Position Sitting Sitting Blood Pressure Location Right Arm History Since Last Visit- (Skip if this is Patient's initial visit) Have you changed medications since your No No No last visit? Any new allergies or adverse reactions No No No Had a fall/change in ADL's that may No No No increase risk of falls Signs or symptoms of abuse and/or No No No neglect since last visit Have you been in the hospital since your No No No last visit? Has dressing in place as prescribed Yes Yes Yes Has compression in place as prescribed Yes Yes Yes Has offloadiing in place as prescribed N/A N/A N/A Experienced any changes in pain level or No No No management Left Footwear Regular Shoe Regular Shoe Right Footwear Regular Shoe Regular Shoe Pain Scale: 0-10 Numeric Is Patient Pain Free? Yes Yes Yes WC - Nurse 1 - General Ulcer Measurement Start: 09/06/23 09:48 Freq: Status: Active Protocol: Activity Type Activity Date Activity User E-sign Co-sign Detail Recorded Client Recorded Date Recorded By Document 09/06/23 09:49 DL Desktop 09/06/23 09:59 DL Document 09/13/23 09:49 DL Desktop 09/13/23 09:58 DL Document 09/27/23 09:58 BMF Desktop 09/27/23 10:01 BMF 09/06/23 09/13/23 09/27/23 09:49 09:49 09:58 Wound Center Nurse 1 #1- R LAT LE (P/O BASAL CELL CA) -Combined with other wound No No -Current Size (cm) - Length 1.3 0.6 0.1 -Current Size (cm) - Width 1.3 1 0.1 -Current Size (cm) - Depth 0.1 0.1 0.1 -Total Square Cm 1.69 0.6 0.01 -Date of Last Picture (Recall this 09/06/23 09/27/23 field) -Photo Taken Yes -Epithelialization Large 67-100% -Exudate Amt Medium Small -Exudate Type Serosanguineous -Wound Margin Distinct, Distinct, Outline Outline Attached Attached -Granulation Amt Large (67-100%) Large (67-100%) -Granulation Quality [place]Red [place] -Necrosis Amt None Present (0 Small (1-33%) %) -Necrotic Tissue Type Adherent Slough -Structure Exposed N/A N/A -Texture (Elif-wound Skin Appearance) Scarring Scarring Assessed, Scarring -Moisture (Elif-wound Skin Appearance) No Abnormality No Abnormality Assessed -Color (Elif-wound Skin Appearance) Hemosiderin Hemosiderin Assessed Staining Staining -Temperature (Elif-wound Skin No Abnormality No Abnormality No Abnormality Appearance) (Pt Warm) (Pt Warm) (Pt Warm) -Tenderness on Palpation (Elif-wound Yes No Skin Appearance) -Ulcer Cleansing Soap and Water Soap and Water Soap and Water -Foul Odor after Cleansing No No No -Anesthetic Used 5% Lidocaine 5% Lidocaine Gel Gel #3 right lateral ankle -Combined with other wound No -Current Size (cm) - Length 1.6 1.5 1.7 -Current Size (cm) - Width 1.2 2 2.2 -Current Size (cm) - Depth 0.4 0.2 0.2 -Total Square Cm 1.92 3.0 3.74 -Date of Last Picture (Recall this 09/06/23 09/27/23 field) -Photo Taken Yes No Yes -Epithelialization None Present -Tunneling No -Undermining/Tunneling No -Circular Undermining No -Exudate Amt Medium Medium Medium -Exudate Type Serosanguineous Serosanguineous Serosanguineous -Wound Margin Distinct, Distinct, Distinct, Outline Outline Outline Attached Attached Attached -Granulation Amt None Present (0 Small (1-33%) Medium (34-66%) %) -Granulation Quality Red Red -Slough/Fibrin Yes -Necrosis Amt Large (67-100%) Large (67-100%) Medium (34-66%) -Necrotic Tissue Type Adherent Slough Adherent Slough Adherent Slough -Structure Exposed N/A N/A -Texture (Elif-wound Skin Appearance) Assessed Scarring Assessed, Scarring -Moisture (Elif-wound Skin Appearance) Assessed No Abnormality Assessed -Color (Elif-wound Skin Appearance) Assessed Hemosiderin Assessed, Staining Erythema -Temperature (Elif-wound Skin No Abnormality No Abnormality No Abnormality Appearance) (Pt Warm) (Pt Warm) (Pt Warm) -Tenderness on Palpation (Elif-wound Yes Yes No Skin Appearance) -Ulcer Cleansing Soap and Water Soap and Water Soap and Water -Foul Odor after Cleansing No No No -Anesthetic Used 5% Lidocaine 5% Lidocaine 5% Lidocaine Gel Gel Gel Right Calf (cm) 33 31.5 32 Right Ankle (cm) 23.5 23.5 23.4 WC - Nurse 2 - General Ulcer CM Notes Start: 09/06/23 09:48 Freq: Status: Active Protocol: Activity Type Activity Date Activity User E-sign Co-sign Detail Recorded Client Recorded Date Recorded By Document 09/06/23 10:04 JF Laptop 09/06/23 10:11 JF Document 09/13/23 10:05 MW Desktop 09/13/23 10:15 MW Edit Result 09/13/23 10:05 MW (1) [id number] 09/14/23 06:58 PL Document 09/27/23 10:12 MW Desktop 09/27/23 10:18 MW (1) #3 right lateral ankle - Apply Skin Sub - 1st 25 sq cm - Legs => 1 09/06/23 09/13/23 09/27/23 10:04 10:05 10:12 Wound Center Nurse 2 #1- R LAT LE (P/O BASAL CELL CA) -Time 10:05 10:08 10:16 -Correct Patient Yes Yes Yes -Correct Side, Site, Position Yes Yes Yes -Correct Procedure Yes Yes Yes -Procedure Performed Yes Yes No -Type of Procedure Debridement Debridement -Clinical Debridement Subcutaneous Subcutaneous -Tissue Removed Subcutaneous Subcutaneous -Post Debridement (cm) - Length 1.5 0.2 0 -Post Debridement (cm) - Width 1.5 0.2 0 -Post Debridement (cm) - Depth 0.1 0.1 0 -Total Square (Post) (cm) 2.25 0.04 0 -Area of Debridement (cm) - Length 1.5 0.2 -Area of Debridement (cm) - Width 1.5 0.2 -Total Square (Area) (cm) 2.25 0.04 -Tunneling No No No -Undermining/Tunneling No No No -Circular Undermining No No No -Wound/Ulcer Outcome Not Healed Not Healed Not Healed -Ulcer Cleansing Rinsed/ Rinsed/ Irrigated with Irrigated with Saline Saline -Foul Odor after Cleansing No No -Bioengineered Tissue No No -Bleeding Controlled with Pressure Pressure -Treatment Response Procedure Procedure Tolerated Well Tolerated Well -Offloading No No -Debridement - Subq, 1st 20sq cm Yes Yes #3 right lateral ankle -Time 10:04 10:06 10:14 -Correct Patient Yes Yes Yes -Correct Side, Site, Position Yes Yes Yes -Correct Procedure Yes Yes Yes -Procedure Performed Yes Yes Yes -Type of Procedure Debridement Debridement Debridement -Clinical Debridement Subcutaneous Subcutaneous Subcutaneous -Tissue Removed Subcutaneous Subcutaneous Subcutaneous -Post Debridement (cm) - Length 1.5 1.9 1.8 -Post Debridement (cm) - Width 1.5 1.7 2.0 -Post Debridement (cm) - Depth 0.2 0.3 0.3 -Total Square (Post) (cm) 2.25 3.23 3.60 -Area of Debridement (cm) - Length 1.5 1.9 1.8 -Area of Debridement (cm) - Width 1.5 1.7 2.0 -Total Square (Area) (cm) 2.25 3.23 3.60 -Tunneling No No No -Undermining/Tunneling No No No -Circular Undermining No No No -Wound/Ulcer Outcome Not Healed Not Healed Not Healed -Ulcer Cleansing Rinsed/ Rinsed/ Rinsed/ Irrigated with Irrigated with Irrigated with Saline Saline Saline -Foul Odor after Cleansing No No No -Bioengineered Tissue Yes Yes Yes -Type of Bioengineered Tissue Epifix -Type of Bioengineered Tissue Epifix Epifix -Expiration Date 05/05/28 05/05/28 05/05/28 -Product Lot Number [id number] -Percent Used 100 100 100 -Lot number of Saline Used [id number] -Bleeding Controlled with Pressure Pressure Pressure -Treatment Response Procedure Procedure Procedure Tolerated Well Tolerated Well Tolerated Well -Offloading No No No -Debridement - Subq, 1st 20sq cm No No No -Apply Skin Sub - 1st 25 sq cm - Legs 1 1 1 -Epifix (per sq cm) 4 4 4 Pain Scale: 0-10 Numeric Is Patient Pain Free? Yes Yes Yes - Nurse 3 - General Ulcer D/C NN Start: 09/06/23 09:48 Freq: Status: Active Protocol: Activity Type Activity Date Activity User E-sign Co-sign Detail Recorded Client Recorded Date Recorded By Document 09/06/23 10:21 DL Desktop 09/06/23 10:23 DL Document 09/13/23 10:21 MW Desktop 09/13/23 10:22 MW Document 09/27/23 10:22 DL Desktop 09/27/23 10:24 DL 09/06/23 09/13/23 09/27/23 10:21 10:21 10:22 Wound Care Center Nurse 3 #1- R LAT LE (P/O BASAL CELL CA) -Ulcer Cleansing Not Cleansed -Foul Odor after Cleansing No No -Negative Pressure Wound Therapy N/A -Primary Dressing Applied Mepilex Border Mepilex Border -Other Dressing epifix -Primary Dressing Covered/Secured with Dry Gauze -Mepilex Border 1 1 #3 right lateral ankle -Ulcer Cleansing Not Cleansed -Foul Odor after Cleansing No No No -Negative Pressure Wound Therapy N/A -Primary Dressing Applied Mepilex Border Mepilex Border Aquacel Extra, Mepilex Border -Other Dressing Epifix Epifix -Primary Dressing Covered/Secured with Dry Gauze -Aquacel Extra 1 -Mepilex Border 1 1 1 albert -Stockings Yes Yes Treatment Response Procedure Procedure Procedure Tolerated Well Tolerated Well Tolerated Well Pain Scale: 0-10 Numeric Is Patient Pain Free? Yes Yes Yes Teaching: Wound Center Dressing Your Wound -Person Taught Patient -Teaching Method Discussion, Demonstration -Response to teaching Verbalize understanding WC - Visit Discharge Discharge Condition Stable Stable Stable Ambulatory Status Ambulatory,Cane Ambulatory,Cane Ambulatory,Cane Transportation Private Auto Private Auto Private Auto Accompanied by self Medication Reconcilliation completed & No provided to patient/care provider Clinical Summary of Care Provided Yes Additional Wound Wound debrided: Right ankle venous ulcer Laterality: Right Type of Debridement: Excisional debridement Anesthesia Used: 5% Lidocaine Gel Depth: in the subcutaneous layer Percentage of wound debrided: 100 Instrument Used: 3mm curette Tissue Removed: Fibrin Severity: Fat Layer Exposed Amount of bleeding with debridement: Mild Bleeding Controlled with: Compression and gauze Patient tolerated procedure: Patient tolerated procedure well Assessment/Plan Assessment/Plan (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: CODE(S): C44.721 - Squamous cell carcinoma of skin of unspecified lower limb, including hip QUALIFIERS: Laterality: right Qualified Code(s): C44.722 - Squamous cell carcinoma of skin of right lower limb, including hip PLAN: Wound resolved (2) Venous ulcer of ankle: CODE(S): I83.003 - Varicose veins of unspecified lower extremity with ulcer of ankle; L97.309 - Non-pressure chronic ulcer of unspecified ankle with unspecified severity QUALIFIERS: Varicose vein presence: with varicose veins Laterality: right Non-pressure ulcer stage: limited to breakdown of skin Qualified Code(s): I83.013 - 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 Galaviz for her right lower leg edema and abnormal venous ultrasounds. Obvious occlusions to her GSV's and she has discoloration to the leg with swelling and pain. (3) Non-pressure ulcer of right lower extremity: CODE(S): L97.919 - Non-pressure chronic ulcer of unspecified part of rightlower leg with unspecified severity QUALIFIERS: Non-pressure ulcer stage: with fat layer exposed Qualified Code(s): L97.912 - Non-pressure chronic ulcer of unspecified part of right lower leg with fat layer exposed PLAN: EpiFix #4 applied wound veil over top and Steri-Strips then Aquacel extra and a dry dressing Follow-up in 1 week . (4) Nonhealing nonsurgical wound: CODE(S): T14.8XXA - Other injury of unspecified body region, initial encounter 09/27/23 1046 <Electronically signed by Mariela Martines NP CASTING REPAIRER-C> Cosigner Signature (if applicable): CC: ~ Signed [facility] Work Phone: [phone]) 912-303701-10-2024 Progress note Author Mariela Martines [facility] September 13, 2023 12:26pm Note Date/Time September 13, 2023 1 2:09pm [facility] [address] [place] [address] Progress Note - Wound Care 09/13/23 1206 MR#: [id number] Acct: [id number] Name: MARY ALICE GA Rep #:[id number] : 1950 72 From: Mariela Martines NP 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 Khanh Rodriguez MD Status:R EG RCR Location: History of Present Illness Date of Service: 09/13/23 Chief Complaint: Follow-up on her right lower leg lateral area wound nonhealing since at least November. History of Wound: 72-year-old white female in [place] she is living duringthe winter. She had a growth removed from her right lateral lower leg. She is still not sure if it is cancer or not. After finally getting through to the dermatology she found that they never sent a biopsy off. She saw her own doctor up here and she was referred to us from her and put on cephalexin. Recently she was taken off her Lasix and has terrible edema of her lower extremities and abdomen. Patient states she has gained 9 pounds Patient had been referred to dermatology and has returned after they did Mohs surgery on her right lateral lower leg. They state they got all the cancer out. We will reapply for EpiFix to restart her. We will also also refer to Dr. Galaviz for vascular problems she is having in her right lower leg. Her biggest complaint is that she is swelling a lot in her lower extremities. Worried about a blood clot Now she has breast cancer and is being seen by oncology at [place] for that. She has left total mastectomy on 06/12/2023. She states she is healing well fromthat. Progress of Wound: The francis wound is almost healed it is just got a couple of dots by next week it should be done. The right lateral ankle venous ulcer is still open more shallowstill gets a lot of slough in the base but she does have some islands of new skin developing. She still complains of pain especially burning at night which I think is from peripheral arterial disease. Patient has never had an arterial study done. Therefore we are going to repeat for her again to Dr. 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 Still gets a lot of slough buildup but she is got islands of new tissue showing in the center base of the wound. The wound looks more shallow but not smaller. The right francis area is definitely almost healed probably by next week it should be healed. Will continue using the EpiFix she goes to EpiFix #2 today We are also concerned that there might be some malnutrition so we started her onJuven and gave her some samples Vital Signs: Vital Signs Temp Pulse Resp BP 96.2 F L 65 20 H 120/54 L 09/13/23 09:49 09/13/23 09:49 09/13/23 09:49 09/13/23 09:49 Lab / Micro Data Attestation: I reviewed the patient's lab results. Physical Exam Const oriented x3 General Appearance: cooperative Exam Limitations: no limitations HEENT normocephalic Head and Scalp: normal to inspection Face and Sinus: normal facial exam Nose: external nose normal General Ear: hearing grossly impaired External Ear: external ears normal Mouth: oral and palatal mucosa normal Eyes PERRL General Eye: normal appearance of both eyes Neck full ROM General: normal visual inspection Resp normal respiratory effort Effort and Inspection: able to speak in complete sentences Auscultation: clear to auscultation bilaterally Cardio regular rate and regular rhythm Palpation: normal PMI Rate: regular rate Rhythm: regular rhythm GI Auscultation: normoactive bowel sounds Palpation: soft and no hepatosplenomegaly external exam normal Back/Spine Cervical Spine: cervical ROM normal Thoracic Spine / Upper Back: normal to inspection Lumbar Spine / Lower Back: normal to inspection Extremity normal to inspection General Extremity: normal exam except as noted Skin no rashes or lesions noted Neuro oriented x3 Psych Appearance: grossly normal Speech: normal speech Thought Content: normal thought content Judgement: judgement good Debridement Note Debridement Note Wound debrided: Right francis Laterality: Right Type of Debridement: Excisional debridement Anesthesia Used: 5% Lidocaine Gel Depth: Down to and including healthy tissue Percentage of wound debrided: 100 Instrument Used: 3mm curette Tissue Removed: Fibrin Severity: Limited To Skin Breakdown Amount of bleeding with debridement: None Bleeding Controlled with: Pressure Patient tolerated procedure: Patient tolerated procedure well Post-Debridement Measurements and Additional Note: Post-Debridement Measurements/Treatment HERMILA Trinidad Nurse 1 - General Ulcer Assessment Start: 09/06/23 09:48 Freq: Status: Active Protocol: SAHIL Activity Type Activity Date Activity User E-sign Co-sign Detail Recorded Client Recorded Date Recorded By Document 09/06/23 09:49 DL Desktop 09/06/23 09:59 DL Document 09/13/23 09:49 DL Desktop 09/13/23 09:58 DL 09/06/23 09/13/23 09:49 09:49 HERMILA - Today's Visit Information Type of service Follow-up Visit Follow-up Visit (Physician/REAL ESTATE LEGAL ASSISTANT (Physician/REAL ESTATE LEGAL ASSISTANT ) ) Arrival Mode Ambulatory Ambulatory,Cane Transfer Assistance None None Patient Identification Verified (Name & Yes Yes ) Patient Requires Transmission-Based No Precautions Vital Signs Temperature (97.8 F-99.1 F) 97.3 F L 96.2 F L Temperature Source Temporal Temporal Pulse Rate (60-100) 70 65 Pulse Location Monitor Monitor Respiratory Rate (12-18) 20 H 20 H Respiratory rate source Observation Observation Blood Pressure (90/60-120/80) 123/69 H 120/54 L Blood Pressure Mean (mm Hg) 87 76 Source Monitor Monitor Position Sitting History Since Last Visit- (Skip if this is Patient's initial visit) Have you changed medications since your No No last visit? Any new allergies or adverse reactions No No Had a fall/change in ADL's that may No No increase risk of falls Signs or symptoms of abuse and/or No No neglect since last visit Have you been in the hospital since your No No last visit? Has dressing in place as prescribed Yes Yes Has compression in place as prescribed Yes Yes Has offloadiing in place as prescribed N/A N/A Experienced any changes in pain level or No No management Left Footwear Regular Shoe Right Footwear Regular Shoe Pain Scale: 0-10 Numeric Is Patient Pain Free? Yes Yes HERMILA Trinidad Nurse 1 - General Ulcer Measurement Start: 09/06/23 09:48 Freq: Status: Active Protocol: Activity Type Activity Date Activity User E-sign Co-sign Detail Recorded Client Recorded Date Recorded By Document 09/06/23 09:49 DL Desktop 09/06/23 09:59 DL Document 09/13/23 09:49 DL Desktop 09/13/23 09:58 DL 09/06/23 09/13/23 09:49 09:49 Wound Center Nurse 1 #3 right lateral ankle -Current Size (cm) - Length 1.6 1.5 -Current Size (cm) - Width 1.2 2 -Current Size (cm) - Depth 0.4 0.2 -Total Square Cm 1.92 3.0 -Date of Last Picture (Recall this 09/06/23 field) -Photo Taken Yes No -Exudate Amt Medium Medium -Exudate Type Serosanguineous Serosanguineous -Wound Margin Distinct, Distinct, Outline Outline Attached Attached -Granulation Amt None Present (0 Small (1-33%) %) -Granulation Quality Red -Necrosis Amt Large (67-100%) Large (67-100%) -Necrotic Tissue Type Adherent Slough Adherent Slough -Structure Exposed N/A N/A -Texture (Elif-wound Skin Appearance) Assessed Scarring -Moisture (Elif-wound Skin Appearance) Assessed No Abnormality -Color (Elif-wound Skin Appearance) Assessed Hemosiderin Staining -Temperature (Elif-wound Skin No Abnormality No Abnormality Appearance) (Pt Warm) (Pt Warm) -Tenderness on Palpation (Elif-wound Yes Yes Skin Appearance) -Ulcer Cleansing Soap and Water Soap and Water -Foul Odor after Cleansing No No -Anesthetic Used 5% Lidocaine 5% Lidocaine Gel Gel #1- R LAT LE (P/O BASAL CELL CA) -Combined with other wound No -Current Size (cm) - Length 1.3 0.6 -Current Size (cm) - Width 1.3 1 -Current Size (cm) - Depth 0.1 0.1 -Total Square Cm 1.69 0.6 -Date of Last Picture (Recall this 09/06/23 field) -Exudate Amt Medium Small -Exudate Type Serosanguineous -Wound Margin Distinct, Distinct, Outline Outline Attached Attached -Granulation Amt Large (67-100%) Large (67-100%) -Granulation Quality [place]Red [place] -Necrosis Amt None Present (0 Small (1-33%) %) -Necrotic Tissue Type Adherent Slough -Structure Exposed N/A N/A -Texture (Elif-wound Skin Appearance) Scarring Scarring -Moisture (Elif-wound Skin Appearance) No Abnormality No Abnormality -Color (Elif-wound Skin Appearance) Hemosiderin Hemosiderin Staining Staining -Temperature (Elif-wound Skin No Abnormality No Abnormality Appearance) (Pt Warm) (Pt Warm) -Tenderness on Palpation (Elif-wound Yes Skin Appearance) -Ulcer Cleansing Soap and Water Soap and Water -Foul Odor after Cleansing No No -Anesthetic Used 5% Lidocaine 5% Lidocaine Gel Gel Right Calf (cm) 33 31.5 Right Ankle (cm) 23.5 23.5 WC - Nurse 2 - General Ulcer CM Notes Start: 09/06/23 09:48 Freq: Status: Active Protocol: Activity Type Activity Date Activity User E-sign Co-sign Detail Recorded Client Recorded Date Recorded By Document 09/06/23 10:04 Laptop 09/06/23 10:11 JF Document 09/13/23 10:05 MW Desktop 09/13/23 10:15 MW 09/06/23 09/13/23 10:04 10:05 Wound Center Nurse 2 #3 right lateral ankle -Time 10:04 10:06 -Correct Patient Yes Yes -Correct Side, Site, Position Yes Yes -Correct Procedure Yes Yes -Procedure Performed Yes Yes -Type of Procedure Debridement Debridement -Clinical Debridement Subcutaneous Subcutaneous -Tissue Removed Subcutaneous Subcutaneous -Post Debridement (cm) - Length 1.5 1.9 -Post Debridement (cm) - Width 1.5 1.7 -Post Debridement (cm) - Depth 0.2 0.3 -Total Square (Post) (cm) 2.25 3.23 -Area of Debridement (cm) - Length 1.5 1.9 -Area of Debridement (cm) - Width 1.5 1.7 -Total Square (Area) (cm) 2.25 3.23 -Tunneling No No -Undermining/Tunneling No No -Circular Undermining No No -Wound/Ulcer Outcome Not Healed Not Healed -Ulcer Cleansing Rinsed/ Rinsed/ Irrigated with Irrigated with Saline Saline -Foul Odor after Cleansing No No -Bioengineered Tissue Yes Yes -Type of Bioengineered Tissue Epifix Epifix -Expiration Date 05/05/28 05/05/28 -Product Lot Number [id number] -Percent Used 100 100 -Lot number of Saline Used [id number] -Bleeding Controlled with Pressure Pressure -Treatment Response Procedure Procedure Tolerated Well Tolerated Well -Offloading No No -Debridement - Subq, 1st 20sq cm No No -Apply Skin Sub - 1st 25 sq cm - Legs 1 -Epifix (per sq cm) 4 4 #1- R LAT LE (P/O BASAL CELL CA) -Time 10:05 10:08 -Correct Patient Yes Yes -Correct Side, Site, Position Yes Yes -Correct Procedure Yes Yes -Procedure Performed Yes Yes -Type of Procedure Debridement Debridement -Clinical Debridement Subcutaneous Subcutaneous -Tissue Removed Subcutaneous Subcutaneous -Post Debridement (cm) - Length 1.5 0.2 -Post Debridement (cm) - Width 1.5 0.2 -Post Debridement (cm) - Depth 0.1 0.1 -Total Square (Post) (cm) 2.25 0.04 -Area of Debridement (cm) - Length 1.5 0.2 -Area of Debridement (cm) - Width 1.5 0.2 -Total Square (Area) (cm) 2.25 0.04 -Tunneling No No -Undermining/Tunneling No No -Circular Undermining No No -Wound/Ulcer Outcome Not Healed Not Healed -Ulcer Cleansing Rinsed/ Rinsed/ Irrigated with Irrigated with Saline Saline -Foul Odor after Cleansing No No -Bioengineered Tissue No No -Bleeding Controlled with Pressure Pressure -Treatment Response Procedure Procedure Tolerated Well Tolerated Well -Offloading No No -Debridement - Subq, 1st 20sq cm Yes Yes Pain Scale: 0-10 Numeric Is Patient Pain Free? Yes Yes WC - Nurse 3 - General Ulcer D/C NN Start: 09/06/23 09:48 Freq: Status: Active Protocol: Activity Type Activity Date Activity User E-sign Co-sign Detail Recorded Client Recorded Date Recorded By Document 09/06/23 10:21 DL Desktop 09/06/23 10:23 DL Document 09/13/23 10:21 MW Desktop 09/13/23 10:22 MW 09/06/23 09/13/23 10:21 10:21 Wound Care Center Nurse 3 #3 right lateral ankle -Ulcer Cleansing Not Cleansed -Foul Odor after Cleansing No No -Negative Pressure Wound Therapy N/A -Primary Dressing Applied Mepilex Border Mepilex Border -Other Dressing Epifix -Primary Dressing Covered/Secured with Dry Gauze -Mepilex Border 1 1 #1- R LAT LE (P/O BASAL CELL CA) -Ulcer Cleansing Not Cleansed -Foul Odor after Cleansing No No -Negative Pressure Wound Therapy N/A -Primary Dressing Applied Mepilex Border Mepilex Border -Other Dressing epifix -Primary Dressing Covered/Secured with Dry Gauze -Mepilex Border 1 1 albert -Stockings Yes Treatment Response Procedure Procedure Tolerated Well Tolerated Well Pain Scale: 0-10 Numeric Is Patient Pain Free? Yes Yes Teaching: Wound Center Dressing Your Wound -Person Taught Patient -Teaching Method Discussion, Demonstration -Response to teaching Verbalize understanding WC - Visit Discharge Discharge Condition Stable Stable Ambulatory Status Ambulatory,Cane Ambulatory,Cane Transportation Private Auto Private Auto Accompanied by self Medication Reconcilliation completed & No provided to patient/care provider Clinical Summary of Care Provided Yes Additional Wound Wound debrided: Right ankle venous ulcer Type of Debridement: Excisional debridement Anesthesia Used: 5% Lidocaine Gel Depth: in the subcutaneous layer Percentage of wound debrided: 100 Instrument Used: 5mm curette Tissue Removed: Slough and fibrin Severity: Fat Layer Exposed Amount of bleeding with debridement: Mild Bleeding Controlled with: Compression and gauze Patient tolerated procedure: Patient tolerated procedure well Assessment/Plan Assessment/Plan (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: CODE(S): C44.721 - Squamous cell carcinoma of skin of unspecified lower limb, including hip QUALIFIERS: Laterality: right Qualified Code(s): C44.722 - Squamous cell carcinoma of skin of right lower limb, including hip PLAN: Wash wound with antibacterial soap and water and apply fibrocol to wound base cover with Adaptic and an absorbent dressing (2) Venous ulcer of ankle: CODE(S): I83.003 - Varicose veins of unspecified lower extremity with ulcer of ankle; L97.309 - Non-pressure chronic ulcer of unspecified ankle with unspecified severity QUALIFIERS: Varicose vein presence: with varicose veins Laterality: right Non-pressure ulcer stage: limited to breakdown of skin Qualified Code(s): I83.013 - 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 Galaviz for her right lower leg edema and abnormal venous ultrasounds. Obvious occlusions to her GSV's and she has discoloration to the legwith swelling and pain. (3) Non-pressure ulcer of right lower extremity: CODE(S): L97.919 - Non-pressure chronic ulcer of unspecified part of rightlower leg with unspecified severity QUALIFIERS: Non-pressure ulcer stage: with fat layer exposed Qualified Code(s): L97.912 - Non-pressure chronic ulcer of unspecified part of right lower leg with fat layer exposed PLAN: EpiFix #3applied wound veil over top and Steri-Strips then Aquacel extra and a dry dressing Follow-up in 1 week with another provider for epi #2 Patient is to finish antibiotic therapy for the infection. (4) Nonhealing nonsurgical wound: CODE(S): T14.8XXA - Other injury of unspecified body region, initial encounter 09/13/23 1226 <Electronically signed by Mariela Martines NP CASTING REPAIRER-C> Cosigner Signature (if applicable): CC: ~ Signed [facility] Work Phone: 1(445) 305-578601-03-2024 Progress note Author Hugo Johnson [facility] September 06, 2023 11:03am Note Date/Time September 06, 2023 11 :03am [facility] [address] [place] [address] Progress Note - Wound Care 09/06/23 1057 MR#: [id number] Acct: [id number] Name: MARY ALICE GA Rep #:[id number] : 1950 72 From: Hugo HANSON PCP: Dr. Khanh Rodriguez MD Status:R EG RCR Location: History of Present Illness Date of Service: 09/06/23 Chief Complaint: Follow-up on her right lower leg lateral area wound nonhealing since at least November. History of Wound: 72-year-old white female in [place] where she is living duringthe winter. She had a growth removed from her right lateral lower leg. She is still not sure if it is cancer or not. After finally getting through to the dermatology she found that they never sent a biopsy off. She saw her own doctor up here and she was referred to us from her and put on cephalexin. Recently she was taken off her Lasix and has terrible edema of her lower extremities and abdomen. Patient states she has gained 9 pounds Patient had been referred to dermatology and has returned after they did Mohs surgery on her right lateral lower leg. They state they got all the cancer out. We will reapply for EpiFix to restart her. We will also also refer to Dr. Galaviz for vascular problems she is having in her right lower leg. Her biggest complaint is that she is swelling a lot in her lower extremities. Worried about a blood clot Now she has breast cancer and is being seen by oncology at [place] for that. She has left total mastectomy on 06/12/2023. She states she is healing well fromthat. Subjective Subjective Mrs Ga is a 72-year-old female presenting for follow-up of full-thicknessulceration appreciated to the Right lower extremity. Patient is seen by the nurse practitioner at the wound care center but is out today on vacation. She is following up with Dr. Johnson for her care. She admits to having a biopsy to the distal ulceration which came back noncancerous. She has been doing home dressing changes at home without problems. She denies trauma. Denies constitutional symptoms. No other pedal complaints at this time. Objective Data Objective Data Vital Signs: Vital Signs Temp Pulse Resp BP 97.3 F L 70 20 H 123/69 H 09/06/23 09:49 09/06/23 09:49 09/06/23 09:49 09/06/23 09:49 Physical Exam Narrative Neurovascular status is unchanged. Evidence of 2 full-thickness ulceration to the right lower extremity lateral aspect. Proximal ulceration measures 1.5 x 1.5 x 0.1 cm. Distal ulceration at the level ankle measures 1.5 x 1.5 x 0.2 cm. Both wounds are granular nature. No sign of infection. Excisional debridement down to and including soft tissue mass with a number 5 mmdermal curette to the proximal right ulceration. Predebridement measurement was1.4 x 1.4 x 0.1 cm. Postdebridement measurements 1.5 x 1.5 x 0.1 cm. Excisional debridement down to and including subcutaneous tissue with a number 5mm dermal curette to the right distal/ankle ulceration without incident. Predebridement measurement is 1.4 x 1.2 x 0.1 cm. Postdebridement measurement is 1.5 x 1.5 x 0.2 cm. EpiFix 2 x 2 centimeter was applied to the right distal full-thickness ulceration with 100% use. Second application. The graft site was free and clear of any infection. The wound/skin graft substitute was dressed with nonadherent bandage secured in place with Steri-Strips followed by bolster dressing as well as a double layer Tubigrip. Debridement Note Debridement Note Debridement Free Text: Excisional debridement down to and including soft tissue mass with a number 5 mm dermal curette to the proximal right ulceration. Predebridement measurement was 1.4 x 1.4 x 0.1 cm. Postdebridement measurements1.5 x 1.5 x 0.1 cm. Excisional debridement down to and including subcutaneous tissue with a number 5mm dermal curette to the right distal/ankle ulceration without incident. Predebridement measurement is 1.4 x 1.2 x 0.1 cm. Postdebridement measurement is 1.5 x 1.5 x 0.2 cm. EpiFix 2 x 2 centimeter was applied to the right distal full-thickness ulceration with 100% use. Second application. The graft site was free and clear of any infection. The wound/skin graft substitute was dressed with nonadherent bandage secured in place with Steri-Strips followed by bolster dressing as well as a double layer Tubigrip. Post-Debridement Measurements and Additional Note: Post-Debridement Measurements/Treatment - Nurse 1 - General Ulcer Assessment Start: 09/06/23 09:48 Freq: Status: Active Protocol: SAHIL Activity Type Activity Date Activity User E-sign Co-sign Detail Recorded Client Recorded Date Recorded By Document 09/06/23 09:49 DL Desktop 09/06/23 09:59 DL 09/06/23 09:49 - Today's Visit Information Type of service Follow-up Visit (Physician/REAL ESTATE LEGAL ASSISTANT ) Arrival Mode Ambulatory Transfer Assistance None Patient Identification Verified (Name & Yes ) Vital Signs Temperature (97.8 F-99.1 F) 97.3 F L Temperature Source Temporal Pulse Rate (60-100) 70 Pulse Location Monitor Respiratory Rate (12-18) 20 H Respiratory rate source Observation Blood Pressure (90/60-120/80) 123/69 H Blood Pressure Mean (mm Hg) 87 Source Monitor Position Sitting History Since Last Visit- (Skip if this is Patient's initial visit) Have you changed medications since your No last visit? Any new allergies or adverse reactions No Had a fall/change in ADL's that may No increase risk of falls Signs or symptoms of abuse and/or No neglect since last visit Have you been in the hospital since your No last visit? Has dressing in place as prescribed Yes Has compression in place as prescribed Yes Has offloadiing in place as prescribed N/A Experienced any changes in pain level or No management Left Footwear Regular Shoe Right Footwear Regular Shoe Pain Scale: 0-10 Numeric Is Patient Pain Free? Yes WC - Nurse 1 - General Ulcer Measurement Start: 09/06/23 09:48 Freq: Status: Active Protocol: Activity Type Activity Date Activity User E-sign Co-sign Detail Recorded Client Recorded Date Recorded By Document 09/06/23 09:49 DL Desktop 09/06/23 09:59 DL 09/06/23 09:49 Wound Center Nurse 1 #3 right lateral ankle -Current Size (cm) - Length 1.6 -Current Size (cm) - Width 1.2 -Current Size (cm) - Depth 0.4 -Total Square Cm 1.92 -Date of Last Picture (Recall this 09/06/23 field) -Photo Taken Yes -Exudate Amt Medium -Exudate Type Serosanguineous -Wound Margin Distinct, Outline Attached -Granulation Amt None Present (0 %) -Necrosis Amt Large (67-100%) -Necrotic Tissue Type Adherent Slough -Structure Exposed N/A -Texture (Elif-wound Skin Appearance) Assessed -Moisture (Elif-wound Skin Appearance) Assessed -Color (Elif-wound Skin Appearance) Assessed -Temperature (Elif-wound Skin No Abnormality Appearance) (Pt Warm) -Tenderness on Palpation (Elif-wound Yes Skin Appearance) -Ulcer Cleansing Soap and Water -Foul Odor after Cleansing No -Anesthetic Used 5% Lidocaine Gel #1- R LAT LE (P/O BASAL CELL CA) -Combined with other wound No -Current Size (cm) - Length 1.3 -Current Size (cm) - Width 1.3 -Current Size (cm) - Depth 0.1 -Total Square Cm 1.69 -Date of Last Picture (Recall this 09/06/23 field) -Exudate Amt Medium -Exudate Type Serosanguineous -Wound Margin Distinct, Outline Attached -Granulation Amt Large (67-100%) -Granulation Quality [place],Red -Necrosis Amt None Present (0 %) -Structure Exposed N/A -Texture (Elif-wound Skin Appearance) Scarring -Moisture (Elif-wound Skin Appearance) No Abnormality -Color (Elif-wound Skin Appearance) Hemosiderin Staining -Temperature (Elif-wound Skin No Abnormality Appearance) (Pt Warm) -Tenderness on Palpation (Elif-wound Yes Skin Appearance) -Ulcer Cleansing Soap and Water -Foul Odor after Cleansing No -Anesthetic Used 5% Lidocaine Gel Right Calf (cm) 33 Right Ankle (cm) 23.5 WC - Nurse 2 - General Ulcer CM Notes Start: 09/06/23 09:48 Freq: Status: Active Protocol: Activity Type Activity Date Activity User E-sign Co-sign Detail Recorded Client Recorded Date Recorded By Document 09/06/23 10:04 Laptop 09/06/23 10:11 09/06/23 10:04 Wound Center Nurse 2 #3 right lateral ankle -Time 10:04 -Correct Patient Yes -Correct Side, Site, Position Yes -Correct Procedure Yes -Procedure Performed Yes -Type of Procedure Debridement -Clinical Debridement Subcutaneous -Tissue Removed Subcutaneous -Post Debridement (cm) - Length 1.5 -Post Debridement (cm) - Width 1.5 -Post Debridement (cm) - Depth 0.2 -Total Square (Post) (cm) 2.25 -Area of Debridement (cm) - Length 1.5 -Area of Debridement (cm) - Width 1.5 -Total Square (Area) (cm) 2.25 -Tunneling No -Undermining/Tunneling No -Circular Undermining No -Wound/Ulcer Outcome Not Healed -Ulcer Cleansing Rinsed/ Irrigated with Saline -Foul Odor after Cleansing No -Bioengineered Tissue Yes -Type of Bioengineered Tissue Epifix -Expiration Date 05/05/28 -Product Lot Number [id number] -Percent Used 100 -Lot number of Saline Used [id number] -Bleeding Controlled with Pressure -Treatment Response Procedure Tolerated Well -Offloading No -Debridement - Subq, 1st 20sq cm No -Apply Skin Sub - 1st 25 sq cm - Legs 1 -Epifix (per sq cm) 4 #1- R LAT LE (P/O BASAL CELL CA) -Time 10:05 -Correct Patient Yes -Correct Side, Site, Position Yes -Correct Procedure Yes -Procedure Performed Yes -Type of Procedure Debridement -Clinical Debridement Subcutaneous -Tissue Removed Subcutaneous -Post Debridement (cm) - Length 1.5 -Post Debridement (cm) - Width 1.5 -Post Debridement (cm) - Depth 0.1 -Total Square (Post) (cm) 2.25 -Area of Debridement (cm) - Length 1.5 -Area of Debridement (cm) - Width 1.5 -Total Square (Area) (cm) 2.25 -Tunneling No -Undermining/Tunneling No -Circular Undermining No -Wound/Ulcer Outcome Not Healed -Ulcer Cleansing Rinsed/ Irrigated with Saline -Foul Odor after Cleansing No -Bioengineered Tissue No -Bleeding Controlled with Pressure -Treatment Response Procedure Tolerated Well -Offloading No -Debridement - Subq, 1st 20sq cm Yes Pain Scale: 0-10 Numeric Is Patient Pain Free? Yes - Nurse 3 - General Ulcer D/C NN Start: 09/06/23 09:48 Freq: Status: Active Protocol: Activity Type Activity Date Activity User E-sign Co-sign Detail Recorded Client Recorded Date Recorded By Document 09/06/23 10:21 DL Desktop 09/06/23 10:23 DL 09/06/23 10:21 Wound Care Center Nurse 3 #3 right lateral ankle -Foul Odor after Cleansing No -Primary Dressing Applied Mepilex Border -Other Dressing Epifix -Mepilex Border 1 #1- R LAT LE (P/O BASAL CELL CA) -Foul Odor after Cleansing No -Primary Dressing Applied Mepilex Border -Other Dressing epifix -Mepilex Border 1 albert -Stockings Yes Treatment Response Procedure Tolerated Well Pain Scale: 0-10 Numeric Is Patient Pain Free? Yes - Visit Discharge Discharge Condition Stable Ambulatory Status Ambulatory,Cane Transportation Private Auto Assessment/Plan Assessment/Plan (1) Non-pressure ulcer of right lower extremity with fat layer exposed: CODE(S): L97.912 - Non-pressure chronic ulcer of unspecified part of rightlower leg with fat layer exposed PLAN: Patient was examined and evaluated. All findings were discussed with the patient. All questions were answered to the patient's satisfaction. Excisional debridement down to and including soft tissue mass with a number 5 mmdermal curette to the proximal right ulceration. Predebridement measurement was1.4 x 1.4 x 0.1 cm. Postdebridement measurements 1.5 x 1.5 x 0.1 cm. Excisional debridement down to and including subcutaneous tissue with a number 5mm dermal curette to the right distal/ankle ulceration without incident. Predebridement measurement is 1.4 x 1.2 x 0.1 cm. Postdebridement measurement is 1.5 x 1.5 x 0.2 cm. EpiFix 2 x 2 centimeter was applied to the right distal full-thickness ulceration with 100% use. Second application. The graft site was free and clear of any infection. The wound/skin graft substitute was dressed with nonadherent bandage secured in place with Steri-Strips followed by bolster dressing as well as a double layer Tubigrip. Follow-up with nurse practitioner Mariela 1 week. (2) Venous ulcer of ankle: CODE(S): I83.003 - Varicose veins of unspecified lower extremity with ulcer of ankle; L97.309 - Non-pressure chronic ulcer of unspecified ankle with unspecified severity QUALIFIERS: Varicose vein presence: with varicose veins Laterality: right Non-pressure ulcer stage: limited to breakdown of skin Qualified Code(s): I83.013 - Varicose veins of right lower extremity with ulcer of ankle; L97.311 - Non- pressure chronic ulcer of right ankle limited to breakdown of skin 09/06/23 1103 <Electronically signed by Hugo Johnson DPM> Cosigner Signature (if applicable): CC: ~ Signed [facility] Work Phone: 1(695) 332-295810-26-2023 Progress note Author Thalia Barroso [facility] June 29, 2023 9:15am Note Date/Time June 28, 2023 1 :04pm [facility] [address] [place] [address] Progress Note - Wound Care 06/28/23 1304 MR#: [id number] Acct: [id number] Name: MARY ALICE GA Rep #:[id number] : 1950 72 From: Thalia mark CASTING REPAIRER 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 Khanh Rodriguez MD Status:R EG RCR Location: History of Present Illness Date of Service: 06/28/23 Chief Complaint: Follow-up on her right lower leg lateral area wound nonhealing since at least November. History of Wound: 72-year-old white female in [place] where she is living duringthe winter. She had a growth removed from her right lateral lower leg. She is still not sure if it is cancer or not. After finally getting through to the dermatology she found that they never sent a biopsy off. She saw her own doctor up here and she was referred to us from her and put on cephalexin. Recently she was taken off her Lasix and has terrible edema of her lower extremities and abdomen. Patient states she has gained 9 pounds Patient had been referred to dermatology and has returned after they did Mohs surgery on her right lateral lower leg. They state they got all the cancer out. We will reapply for EpiFix to restart her. We will also also refer to Dr. Galaviz for vascular problems she is having in her right lower leg. Her biggest complaint is that she is swelling a lot in her lower extremities. Worried about a blood clot Now she has breast cancer and is being seen by oncology at [place] for that. She has left total mastectomy on 06/12/2023. She states she is healing well fromthat. Progress of Wound: Courtesy visit since Mariela is out of town. Right lateral leg ulcer is measuring smaller this week with the use of Epifix. Objective Data Objective Data Vital Signs: Vital Signs Temp Pulse Resp BP O2 Del Method 97.1 F L 76 18 135/72 H Room Air 06/28/23 09:53 06/28/23 09:53 06/28/23 09:53 06/28/23 09:53 06/21/23 10:48 Oxygen Delivery Method Room Air Charges/Coding Procedures Integumentary 150xxx-152xx: 09506 Skin sub graft trnk/arm/leg (Right lateral leg ulcer) Multi Select Codes Integumentary Integumentary CPT Codes: 15432 Nina subq tissue 20 sq cm/< (right lateral ankle ulcer) Debridement Note Debridement Note Wound debrided: Right lateral leg wound from cancer removal Laterality: Right Type of Debridement: Excisional debridement Anesthesia Used: 5% Lidocaine Gel Depth: Down to and including healthy tissue Percentage of wound debrided: 100 Instrument Used: 5mm curette Tissue Removed: Non viable tissue and slough Severity: Fat Layer Exposed Amount of bleeding with debridement: Mild Bleeding Controlled with: Compression and gauze Patient tolerated procedure: Patient tolerated procedure well Post-Debridement Measurements and Additional Note: Post-Debridement Measurements/Treatment - Nurse 1 - General Ulcer Assessment Start: 06/14/23 10:07 Freq: Status: Active Protocol: SAHIL Activity Type Activity Date Activity User E-sign Co-sign Detail Recorded Client Recorded Date Recorded By Document 06/14/23 10:08 [employer] 06/14/23 10:16 [facility] Document 06/21/23 10:48 [employer] 06/21/23 11:05 [facility] Document 06/28/23 09:53 DL Desktop 06/28/23 10:02 DL 06/14/23 06/21/23 06/28/23 10:08 10:48 09:53 - Today's Visit Information Type of service Follow-up Visit Nurse-only Follow-up Visit (Physician/REAL ESTATE LEGAL ASSISTANT Visit (Physician/REAL ESTATE LEGAL ASSISTANT ) ) Arrival Mode Ambulatory Ambulatory Ambulatory Transfer Assistance None None None Patient Identification Verified (Name & Yes Yes Yes ) Patient Requires Transmission-Based No No No Precautions Vital Signs Temperature (97.8 F-99.1 F) 97 F L 96.5 F L 97.1 F L Temperature Source Temporal Temporal Temporal Pulse Rate (60-100) 58 L 68 76 Pulse Location Monitor Monitor Monitor Respiratory Rate (12-18) 16 16 18 Respiratory rate source Observation Observation Observation Oxygen Delivery Method Room Air Room Air Blood Pressure (90/60-120/80) 142/58 H 140/69 H 135/72 H Blood Pressure Mean (mm Hg) 86 92 93 Source Monitor Monitor Monitor Position Sitting Sitting Blood Pressure Location Right Arm Comment pt got out of hosp on post L MASTECTOMY History Since Last Visit- (Skip if this is Patient's initial visit) Have you changed medications since your No No No last visit? Any new allergies or adverse reactions No No No Had a fall/change in ADL's that may No No No increase risk of falls Signs or symptoms of abuse and/or No No No neglect since last visit Have you been in the hospital since your Yes No No last visit? Has dressing in place as prescribed Yes Yes Yes Has compression in place as prescribed Yes Yes No Has offloadiing in place as prescribed N/A N/A N/A Experienced any changes in pain level or No No No management Left Footwear Regular Shoe Regular Shoe Right Footwear Regular Shoe Regular Shoe Pain Scale: 0-10 Numeric Is Patient Pain Free? Yes Yes Yes WC - Nurse 1 - General Ulcer Measurement Start: 06/14/23 10:07 Freq: Status: Active Protocol: Activity Type Activity Date Activity User E-sign Co-sign Detail Recorded Client Recorded Date Recorded By Document 06/14/23 10:08 [employer] 06/14/23 10:16 [employer] Document 06/21/23 10:48 [facility] Desktop 06/21/23 11:05 BM Document 06/28/23 09:53 DL Desktop 06/28/23 10:02 DL 06/14/23 06/21/23 06/28/23 10:08 10:48 09:53 Wound Center Nurse 1 # 5 Right upper arm -Combined with other wound No -Current Size (cm) - Length 0 -Current Size (cm) - Width 0 -Current Size (cm) - Depth 0 -Total Square Cm 0 -Epithelialization Large 67-100% -Tunneling No -Undermining/Tunneling No -Circular Undermining No -Texture (Elif-wound Skin Appearance) Assessed, Scarring -Moisture (Elif-wound Skin Appearance) Assessed -Color (Elif-wound Skin Appearance) Assessed -Temperature (Elif-wound Skin No Abnormality Appearance) (Pt Warm) -Tenderness on Palpation (Elif-wound No Skin Appearance) -Ulcer Cleansing Rinsed/ Irrigated with Saline -Foul Odor after Cleansing No #4 right medial LE -Combined with other wound No -Current Size (cm) - Length 0.1 -Current Size (cm) - Width 0.1 -Current Size (cm) - Depth 0.1 -Total Square Cm 0.01 -Epithelialization Large 67-100% -Necrosis Amt Small (1-33%) -Necrotic Tissue Type Eschar -Texture (Elif-wound Skin Appearance) Assessed, Scarring -Moisture (Elif-wound Skin Appearance) Assessed,Dry/ Scaly -Color (Elif-wound Skin Appearance) Assessed -Temperature (Elif-wound Skin No Abnormality Appearance) (Pt Warm) -Tenderness on Palpation (Elif-wound No Skin Appearance) -Ulcer Cleansing Rinsed/ Irrigated with Saline -Foul Odor after Cleansing No -Anesthetic Used 5% Lidocaine Gel #3 right lateral ankle -Combined with other wound No No -Current Size (cm) - Length 1 1 0.8 -Current Size (cm) - Width 0.6 0.8 0.7 -Current Size (cm) - Depth 0.2 0.3 0.1 -Total Square Cm 0.6 0.8 0.56 -Photo Taken No No -Epithelialization Small 1-33% Small 1-33% -Tunneling No No -Undermining/Tunneling No No -Circular Undermining No No -Exudate Amt Medium Medium Small -Exudate Type Serosanguineous Serosanguineous Serosanguineous -Wound Margin Distinct, Distinct, Distinct, Outline Outline Outline Attached Attached Attached -Granulation Amt None Present (0 Small (1-33%) Medium (34-66%) %) -Granulation Quality Red Red -Slough/Fibrin Yes Yes -Necrosis Amt Large (67-100%) Large (67-100%) Medium (34-66%) -Necrotic Tissue Type Adherent Slough Adherent Slough Eschar -Structure Exposed N/A -Texture (Elif-wound Skin Appearance) Assessed, Assessed, Scarring Scarring Scarring -Moisture (Elif-wound Skin Appearance) Assessed Assessed,Dry/ No Abnormality Scaly -Color (Elif-wound Skin Appearance) Assessed Assessed Hemosiderin Staining -Temperature (Elif-wound Skin No Abnormality No Abnormality No Abnormality Appearance) (Pt Warm) (Pt Warm) (Pt Warm) -Tenderness on Palpation (Elif-wound No Yes No Skin Appearance) -Ulcer Cleansing Rinsed/ Soap and Water Soap and Water Irrigated with Saline -Foul Odor after Cleansing No No -Anesthetic Used 5% Lidocaine 5% Lidocaine 5% Lidocaine Gel Gel Gel #1- R LAT LE (P/O BASAL CELL CA) -Combined with other wound No No -Current Size (cm) - Length 4.0 3.5 3.2 -Current Size (cm) - Width 3.7 3.6 3.3 -Current Size (cm) - Depth 0.2 0.1 0.1 -Total Square Cm 14.80 12.60 10.56 -Photo Taken No -Epithelialization Small 1-33% Small 1-33% -Tunneling No No -Undermining/Tunneling No No -Circular Undermining No No -Exudate Amt Large Medium Medium -Exudate Type Serosanguineous Serosanguineous Serosanguineous -Wound Margin Distinct, Distinct, Distinct, Outline Outline Outline Attached Attached Attached -Granulation Amt Large (67-100%) Medium (34-66%) Large (67-100%) -Granulation Quality Red Red Red -Slough/Fibrin Yes Yes -Necrosis Amt Medium (34-66%) Medium (34-66%) Medium (34-66%) -Necrotic Tissue Type Adherent Slough Adherent Slough Adherent Slough -Structure Exposed N/A -Texture (Elif-wound Skin Appearance) Assessed, Assessed, Scarring Scarring Scarring -Moisture (Elif-wound Skin Appearance) Assessed Assessed,Dry/ No Abnormality Scaly -Color (Elif-wound Skin Appearance) Assessed Assessed Hemosiderin Staining -Temperature (Elif-wound Skin No Abnormality No Abnormality No Abnormality Appearance) (Pt Warm) (Pt Warm) (Pt Warm) -Tenderness on Palpation (Elif-wound No Yes No Skin Appearance) -Ulcer Cleansing Soap and Water Soap and Water Soap and Water -Foul Odor after Cleansing No No -Anesthetic Used 5% Lidocaine 5% Lidocaine 5% Lidocaine Gel Gel Gel Lower Limb Edema Present Yes Right Calf (cm) 34.2 35.5 Right Ankle (cm) 23.6 23 WC - Nurse 2 - General Ulcer CM Notes Start: 06/14/23 10:07 Freq: Status: Active Protocol: Activity Type Activity Date Activity User E-sign Co-sign Detail Recorded Client Recorded Date Recorded By Document 06/14/23 10:26 MW Desktop 06/14/23 10:36 MW Edit Result 06/14/23 10:26 MW (1) [id number] 06/16/23 15:15 PL Document 06/21/23 11:18 MW Desktop 06/21/23 11:25 MW Document 06/28/23 10:22 JF Laptop 06/28/23 10:27 JF (1) # 5 Right upper arm - Debridement - Subq, 1st 20sq cm => Yes #3 right lateral ankle - Debridement - Subq, 1st 20sq cm => No 06/14/23 06/21/23 06/28/23 10:26 11:18 10:22 Wound Center Nurse 2 # 5 Right upper arm -Time 10:31 11:18 -Correct Patient Yes Yes -Correct Side, Site, Position Yes Yes -Correct Procedure Yes Yes -Procedure Performed Yes No -Type of Procedure Debridement -Clinical Debridement Subcutaneous -Tissue Removed Subcutaneous -Post Debridement (cm) - Length 2.5 0 -Post Debridement (cm) - Width 3.0 0 -Post Debridement (cm) - Depth 0.1 0 -Total Square (Post) (cm) 7.50 0 -Area of Debridement (cm) - Length 2.5 -Area of Debridement (cm) - Width 3.0 -Total Square (Area) (cm) 7.50 -Tunneling No -Undermining/Tunneling No -Circular Undermining No -Wound/Ulcer Outcome Not Healed Healed- Epithelialized -Ulcer Cleansing Rinsed/ Irrigated with Saline -Foul Odor after Cleansing No -Bioengineered Tissue No -Bleeding Controlled with Pressure -Treatment Response Procedure Tolerated Well -Offloading No -Debridement - Subq, 1st 20sq cm Yes #4 right medial LE -Time 10:28 -Correct Patient Yes -Correct Side, Site, Position Yes -Correct Procedure Yes -Procedure Performed No -Post Debridement (cm) - Length 0 -Post Debridement (cm) - Width 0 -Post Debridement (cm) - Depth 0 -Total Square (Post) (cm) 0 -Wound/Ulcer Outcome Not Healed #3 right lateral ankle -Time 10:29 11:19 10:22 -Correct Patient Yes Yes Yes -Correct Side, Site, Position Yes Yes Yes -Correct Procedure Yes Yes Yes -Procedure Performed Yes Yes Yes -Type of Procedure Debridement Debridement Debridement -Clinical Debridement Subcutaneous Subcutaneous Subcutaneous -Tissue Removed Subcutaneous Subcutaneous Subcutaneous -Post Debridement (cm) - Length 1.0 0.8 0.9 -Post Debridement (cm) - Width 1.0 0.7 0.8 -Post Debridement (cm) - Depth 0.3 0.2 0.1 -Total Square (Post) (cm) 1.00 0.56 0.72 -Area of Debridement (cm) - Length 1.0 0.8 0.9 -Area of Debridement (cm) - Width 1.0 0.7 0.8 -Total Square (Area) (cm) 1.00 0.56 0.72 -Tunneling No No No -Undermining/Tunneling No No No -Circular Undermining No No No -Wound/Ulcer Outcome Not Healed Not Healed Not Healed -Ulcer Cleansing Rinsed/ Rinsed/ Rinsed/ Irrigated with Irrigated with Irrigated with Saline Saline Saline -Foul Odor after Cleansing No No No -Bioengineered Tissue No No No -Bleeding Controlled with Pressure Pressure Pressure -Treatment Response Procedure Procedure Procedure Tolerated Well Tolerated Well Tolerated Well -Offloading No No No -Debridement - Subq, 1st 20sq cm No Yes Yes #1- R LAT LE (P/O BASAL CELL CA) -Time 10:29 11:19 10:23 -Correct Patient Yes Yes Yes -Correct Side, Site, Position Yes Yes Yes -Correct Procedure Yes Yes Yes -Procedure Performed Yes Yes Yes -Type of Procedure Debridement Debridement Debridement -Clinical Debridement Subcutaneous Subcutaneous Subcutaneous -Tissue Removed Subcutaneous Subcutaneous Subcutaneous -Post Debridement (cm) - Length 4.0 3.0 3.3 -Post Debridement (cm) - Width 3.8 3.5 3.4 -Post Debridement (cm) - Depth 0.2 0.1 0.1 -Total Square (Post) (cm) 15.20 10.50 11.22 -Area of Debridement (cm) - Length 4.0 3.0 3.3 -Area of Debridement (cm) - Width 3.8 3.5 3.4 -Total Square (Area) (cm) 15.20 10.50 11.22 -Tunneling No No No -Undermining/Tunneling No No No -Circular Undermining No No No -Wound/Ulcer Outcome Not Healed Not Healed Not Healed -Ulcer Cleansing Rinsed/ Rinsed/ Rinsed/ Irrigated with Irrigated with Irrigated with Saline Saline Saline -Foul Odor after Cleansing No No No -Bioengineered Tissue Yes Yes Yes -Type of Bioengineered Tissue Epifix Mesh Epifix Mesh Epifix Mesh -Expiration Date 03/04/28 03/04/28 03/04/28 -Product Lot Number [id number] -Percent Used 100 100 100 -Lot number of Saline Used [id number] -Bleeding Controlled with Pressure Pressure Pressure -Treatment Response Procedure Procedure Procedure Tolerated Well Tolerated Well Tolerated Well -Offloading No No No -Debridement - Subq, 1st 20sq cm No No No -Apply Skin Sub - 1st 25 sq cm - Legs 1 1 1 -Epifix Mesh (per sq cm) 11 11 11 Pain Scale: 0-10 Numeric Is Patient Pain Free? Yes Yes Yes WC - Nurse 3 - General Ulcer D/C NN Start: 06/14/23 10:07 Freq: Status: Active Protocol: Activity Type Activity Date Activity User E-sign Co-sign Detail Recorded Client Recorded Date Recorded By Document 06/14/23 10:52 MW Desktop 06/14/23 10:56 MW Document 06/21/23 11:32 GM Desktop 06/21/23 11:33 GM Document 06/28/23 10:38 GM Desktop 06/28/23 10:45 GM 06/14/23 06/21/23 06/28/23 10:52 11:32 10:38 Wound Care Center Nurse 3 # 5 Right upper arm -Ulcer Cleansing Not Cleansed -Foul Odor after Cleansing No -Negative Pressure Wound Therapy N/A -Primary Dressing Applied Aquacel Extra, Mepilex Border, NonAdherent Contact Layer -Other Dressing adaptic -Aquacel Extra 1 -Mepilex Border 1 #3 right lateral ankle -Ulcer Cleansing Not Cleansed Not Cleansed Not Cleansed -Foul Odor after Cleansing No No -Negative Pressure Wound Therapy N/A -Primary Dressing Applied Mepilex Border Aquacel Extra, Mepilex Border Mepilex Border -Other Dressing aquacel extra epifixe -Aquacel Extra 1 -Mepilex Border 1 1 1 #1- R LAT LE (P/O BASAL CELL CA) -Ulcer Cleansing Not Cleansed Not Cleansed -Foul Odor after Cleansing No No -Negative Pressure Wound Therapy N/A -Primary Dressing Applied Mepilex Border Aquacel Extra, Mepilex Border -Other Dressing aquacel extra -Aquacel Extra 1 -Mepilex Border 1 1 Pain Scale: 0-10 Numeric Is Patient Pain Free? Yes Yes Yes Teaching: Wound Center Compression Wraps & Stockings -Person Taught Patient -Teaching Method Discussion -Response to teaching Verbalize understanding Dressing Your Wound -Person Taught Patient Patient Patient -Teaching Method Discussion Discussion Discussion, Demonstration -Response to teaching Verbalize Verbalize Verbalize understanding understanding understanding WC - Visit Discharge Discharge Condition Stable Stable Stable Ambulatory Status Ambulatory Ambulatory,Cane Ambulatory,Cane Transportation Private Auto Private Auto Private Auto Medication Reconcilliation completed & Yes Yes provided to patient/care provider Clinical Summary of Care Provided Yes Yes Additional Wound Wound debrided: Right lateral ankle wound from venous ulcer Laterality: Right Type of Debridement: Excisional debridement Anesthesia Used: 5% Lidocaine Gel Depth: Down to and including healthy tissue and in the subcutaneous layer Percentage of wound debrided: 100 Instrument Used: 3mm curette Tissue Removed: Non viable tissue and slough Severity: Fat Layer Exposed Amount of bleeding with debridement: Mild Bleeding Controlled with: Compression and gauze Assessment/Plan Assessment/Plan (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: CODE(S): C44.721 - Squamous cell carcinoma of skin of unspecified lower limb, including hip QUALIFIERS: Laterality: right Qualified Code(s): C44.722 - Squamous cell carcinoma of skin of right lower limb, including hip PLAN: EpiFix #6 applied Covered with wound veil and Steri-Strips patient is to leave alone and not take off or shower on that leg (2) Venous ulcer of ankle: CODE(S): I83.003 - Varicose veins of unspecified lower extremity with ulcer of ankle; L97.309 - Non-pressure chronic ulcer of unspecified ankle with unspecified severity QUALIFIERS: Varicose vein presence: with varicose veins Laterality: right Non-pressure ulcer stage: limited to breakdown of skin Qualified Code(s): I83.013 - 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 Galaviz for her right lower leg edema and abnormal venous ultrasounds. Obvious occlusions to her GSV's and she has discoloration to the leg with swelling and pain. (3) Non-pressure ulcer of right lower extremity: CODE(S): L97.919 - Non-pressure chronic ulcer of unspecified part of rightlower leg with unspecified severity QUALIFIERS: Non-pressure ulcer stage: with fat layer exposed Qualified Code(s): L97.912 - Non-pressure chronic ulcer of unspecified part of right lower leg with fat layer exposed PLAN: Wash the right lateral ankle wounds with an antibacterial soap and water pat dry apply Fibracol moistened cover with gauze and dressings daily. Wear a double layer Tubigrip Follow-up in 1 week Continue antibiotic therapy for till done (4) Nonhealing nonsurgical wound: CODE(S): T14.8XXA - Other injury of unspecified body region, initial encounter PLAN: Wash right upper arm with antibacterial soap and water apply Aquacel extrato wound base moistened cover with Adaptic and gauze dressings every day 06/29/23 0915 <Electronically signed by Thalia Barroso NP [employer]STING REPAIRER-C> Cosigner Signature (if applicable): CC: ~ Signed [facility] Work Phone: [phone] 993-136710-18-2023 Progress note Author Mariela Martines [facility] June 21, 2023 11:48am Note Date/Time June 21, 2023 1 1:42am [facility] [address] [place] [id number] Progress Note - Wound Care 06/21/23 1138 MR#: [id number] Acct: [id number] Name: MARY ALICE GA Rep #:[id number] : 1950 72 From: Mariela Martines NP 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 Khanh Rodriguez MD Status:R EG RCR Location: History of Present Illness Date of Service: 06/21/23 Chief Complaint: Follow-up on her right lower leg lateral area wound nonhealing since at least November. History of Wound: 72-year-old white female in [place] where she is living duringthe winter. She had a growth removed from her right lateral lower leg. She is still not sure if it is cancer or not. After finally getting through to the dermatology she found that they never sent a biopsy off. She saw her own doctor up here and she was referred to us from her and put on cephalexin. Recently she was taken off her Lasix and has terrible edema of her lower extremities and abdomen. Patient states she has gained 9 pounds Patient had been referred to dermatology and has returned after they did Mohs surgery on her right lateral lower leg. They state they got all the cancer out. We will reapply for EpiFix to restart her. We will also also refer to Dr. Galaviz for vascular problems she is having in her right lower leg. Her biggest complaint is that she is swelling a lot in her lower extremities. Worried about a blood clot Now she has breast cancer and is being seen by oncology at [place] for that also. Progress of Wound: So yesterday she had a total left mastectomy. She was seen by Mohs surgeon lastweek and they reapplied a EpiFix to that right lateral lower leg. Measurements are about the same on it except that its more shallow looks good. She has another small open wound on her right lateral ankle is about the same size has some slough in it. She has then developed another avulsion laceration on her right upper arm from lifting her up and scratching her arm. The right forearm is resolved. All her measurements are smaller and she is doing very well with the epi fix. Subjective Subjective Patient is happy with outcomes Objective Data Objective Data Measurements are slightly smaller filling in nicely with new skin around the edges. Vital Signs: Vital Signs Temp Pulse Resp BP O2 Del Method 96.5 F L 68 16 140/69 H Room Air 06/21/23 10:48 06/21/23 10:48 06/21/23 10:48 06/21/23 10:48 06/21/23 10:48 Oxygen Delivery Method Room Air Physical Exam Const oriented x3 General Appearance: cooperative Exam Limitations: no limitations HEENT normocephalic Head and Scalp: normal to inspection Face and Sinus: normal facial exam Nose: external nose normal General Ear: hearing grossly impaired External Ear: external ears normal Mouth: oral and palatal mucosa normal Eyes PERRL General Eye: normal appearance of both eyes Neck full ROM General: normal visual inspection Resp normal respiratory effort Effort and Inspection: able to speak in complete sentences Auscultation: clear to auscultation bilaterally Cardio regular rate and regular rhythm Palpation: normal PMI Rate: regular rate Rhythm: regular rhythm GI Auscultation: normoactive bowel sounds Palpation: soft and no hepatosplenomegaly external exam normal Back/Spine Cervical Spine: cervical ROM normal Thoracic Spine / Upper Back: normal to inspection Lumbar Spine / Lower Back: normal to inspection Extremity normal to inspection General Extremity: normal exam except as noted Skin no rashes or lesions noted Neuro oriented x3 Psych Appearance: grossly normal Speech: normal speech Thought Content: normal thought content Judgement: judgement good Debridement Note Debridement Note Wound debrided: Right lateral leg wound from cancer removal Type of Debridement: Excisional debridement Anesthesia Used: 5% Lidocaine Gel Depth: Down to and including healthy tissue Percentage of wound debrided: 100 Instrument Used: 5mm curette Tissue Removed: Fibrin Severity: Limited To Skin Breakdown Amount of bleeding with debridement: Mild Bleeding Controlled with: Compression and gauze Patient tolerated procedure: Patient tolerated procedure well Post-Debridement Measurements and Additional Note: Post-Debridement Measurements/Treatment - Nurse 1 - General Ulcer Assessment Start: 06/14/23 10:07 Freq: Status: Active Protocol: SAHIL Activity Type Activity Date Activity User E-sign Co-sign Detail Recorded Client Recorded Date Recorded By Document 06/14/23 10:08 [employer] 06/14/23 10:16 [facility] Document 06/21/23 10:48 [employer] 06/21/23 11:05 [facility] 06/14/23 06/21/23 10:08 10:48 - Today's Visit Information Type of service Follow-up Visit Nurse-only (Physician/REAL ESTATE LEGAL ASSISTANT Visit ) Arrival Mode Ambulatory Ambulatory Transfer Assistance None None Patient Identification Verified (Name & Yes Yes ) Patient Requires Transmission-Based No No Precautions Vital Signs Temperature (97.8 F-99.1 F) 97 F L 96.5 F L Temperature Source Temporal Temporal Pulse Rate (60-100) 58 L 68 Pulse Location Monitor Monitor Respiratory Rate (12-18) 16 16 Respiratory rate source Observation Observation Oxygen Delivery Method Room Air Room Air Blood Pressure (90/60-120/80) 142/58 H 140/69 H Blood Pressure Mean (mm Hg) 86 92 Source Monitor Monitor Position Sitting Sitting Blood Pressure Location Right Arm Comment pt got out of hosp on post L MASTECTOMY History Since Last Visit- (Skip if this is Patient's initial visit) Have you changed medications since your No No last visit? Any new allergies or adverse reactions No No Had a fall/change in ADL's that may No No increase risk of falls Signs or symptoms of abuse and/or No No neglect since last visit Have you been in the hospital since your Yes No last visit? Has dressing in place as prescribed Yes Yes Has compression in place as prescribed Yes Yes Has offloadiing in place as prescribed N/A N/A Experienced any changes in pain level or No No management Left Footwear Regular Shoe Regular Shoe Right Footwear Regular Shoe Regular Shoe Pain Scale: 0-10 Numeric Is Patient Pain Free? Yes Yes WC - Nurse 1 - General Ulcer Measurement Start: 06/14/23 10:07 Freq: Status: Active Protocol: Activity Type Activity Date Activity User E-sign Co-sign Detail Recorded Client Recorded Date Recorded By Document 06/14/23 10:08 [employer] Desktop 06/14/23 10:16 BMF Document 06/21/23 10:48 [employer] Desktop 06/21/23 11:05 BMF 06/14/23 06/21/23 10:08 10:48 Wound Center Nurse 1 # 5 Right upper arm -Combined with other wound No -Current Size (cm) - Length 0 -Current Size (cm) - Width 0 -Current Size (cm) - Depth 0 -Total Square Cm 0 -Epithelialization Large 67-100% -Tunneling No -Undermining/Tunneling No -Circular Undermining No -Texture (Elif-wound Skin Appearance) Assessed, Scarring -Moisture (Elif-wound Skin Appearance) Assessed -Color (Elif-wound Skin Appearance) Assessed -Temperature (Elif-wound Skin No Abnormality Appearance) (Pt Warm) -Tenderness on Palpation (Elif-wound No Skin Appearance) -Ulcer Cleansing Rinsed/ Irrigated with Saline -Foul Odor after Cleansing No #4 right medial LE -Combined with other wound No -Current Size (cm) - Length 0.1 -Current Size (cm) - Width 0.1 -Current Size (cm) - Depth 0.1 -Total Square Cm 0.01 -Epithelialization Large 67-100% -Necrosis Amt Small (1-33%) -Necrotic Tissue Type Eschar -Texture (Elif-wound Skin Appearance) Assessed, Scarring -Moisture (Elif-wound Skin Appearance) Assessed,Dry/ Scaly -Color (Elif-wound Skin Appearance) Assessed -Temperature (Elif-wound Skin No Abnormality Appearance) (Pt Warm) -Tenderness on Palpation (Elif-wound No Skin Appearance) -Ulcer Cleansing Rinsed/ Irrigated with Saline -Foul Odor after Cleansing No -Anesthetic Used 5% Lidocaine Gel #3 right lateral ankle -Combined with other wound No No -Current Size (cm) - Length 1 1 -Current Size (cm) - Width 0.6 0.8 -Current Size (cm) - Depth 0.2 0.3 -Total Square Cm 0.6 0.8 -Photo Taken No No -Epithelialization Small 1-33% Small 1-33% -Tunneling No No -Undermining/Tunneling No No -Circular Undermining No No -Exudate Amt Medium Medium -Exudate Type Serosanguineous Serosanguineous -Wound Margin Distinct, Distinct, Outline Outline Attached Attached -Granulation Amt None Present (0 Small (1-33%) %) -Granulation Quality Red -Slough/Fibrin Yes Yes -Necrosis Amt Large (67-100%) Large (67-100%) -Necrotic Tissue Type Adherent Slough Adherent Slough -Texture (Elif-wound Skin Appearance) Assessed, Assessed, Scarring Scarring -Moisture (Elif-wound Skin Appearance) Assessed Assessed,Dry/ Scaly -Color (Elif-wound Skin Appearance) Assessed Assessed -Temperature (Elif-wound Skin No Abnormality No Abnormality Appearance) (Pt Warm) (Pt Warm) -Tenderness on Palpation (Elif-wound No Yes Skin Appearance) -Ulcer Cleansing Rinsed/ Soap and Water Irrigated with Saline -Foul Odor after Cleansing No No -Anesthetic Used 5% Lidocaine 5% Lidocaine Gel Gel #1- R LAT LE (P/O BASAL CELL CA) -Combined with other wound No No -Current Size (cm) - Length 4.0 3.5 -Current Size (cm) - Width 3.7 3.6 -Current Size (cm) - Depth 0.2 0.1 -Total Square Cm 14.80 12.60 -Photo Taken No -Epithelialization Small 1-33% Small 1-33% -Tunneling No No -Undermining/Tunneling No No -Circular Undermining No No -Exudate Amt Large Medium -Exudate Type Serosanguineous Serosanguineous -Wound Margin Distinct, Distinct, Outline Outline Attached Attached -Granulation Amt Large (67-100%) Medium (34-66%) -Granulation Quality Red Red -Slough/Fibrin Yes Yes -Necrosis Amt Medium (34-66%) Medium (34-66%) -Necrotic Tissue Type Adherent Slough Adherent Slough -Texture (Elif-wound Skin Appearance) Assessed, Assessed, Scarring Scarring -Moisture (Elif-wound Skin Appearance) Assessed Assessed,Dry/ Scaly -Color (Elif-wound Skin Appearance) Assessed Assessed -Temperature (Elif-wound Skin No Abnormality No Abnormality Appearance) (Pt Warm) (Pt Warm) -Tenderness on Palpation (Elif-wound No Yes Skin Appearance) -Ulcer Cleansing Soap and Water Soap and Water -Foul Odor after Cleansing No No -Anesthetic Used 5% Lidocaine 5% Lidocaine Gel Gel Lower Limb Edema Present Yes Right Calf (cm) 34.2 Right Ankle (cm) 23.6 WC - Nurse 2 - General Ulcer CM Notes Start: 06/14/23 10:07 Freq: Status: Active Protocol: Activity Type Activity Date Activity User E-sign Co-sign Detail Recorded Client Recorded Date Recorded By Document 06/14/23 10:26 MW Desktop 06/14/23 10:36 MW Edit Result 06/14/23 10:26 MW (1) [id number] 06/16/23 15:15 PL Document 06/21/23 11:18 MW Desktop 06/21/23 11:25 MW (1) # 5 Right upper arm - Debridement - Subq, 1st 20sq cm => Yes #3 right lateral ankle - Debridement - Subq, 1st 20sq cm => No 06/14/23 06/21/23 10:26 11:18 Wound Center Nurse 2 # 5 Right upper arm -Time 10:31 11:18 -Correct Patient Yes Yes -Correct Side, Site, Position Yes Yes -Correct Procedure Yes Yes -Procedure Performed Yes No -Type of Procedure Debridement -Clinical Debridement Subcutaneous -Tissue Removed Subcutaneous -Post Debridement (cm) - Length 2.5 0 -Post Debridement (cm) - Width 3.0 0 -Post Debridement (cm) - Depth 0.1 0 -Total Square (Post) (cm) 7.50 0 -Area of Debridement (cm) - Length 2.5 -Area of Debridement (cm) - Width 3.0 -Total Square (Area) (cm) 7.50 -Tunneling No -Undermining/Tunneling No -Circular Undermining No -Wound/Ulcer Outcome Not Healed Healed- Epithelialized -Ulcer Cleansing Rinsed/ Irrigated with Saline -Foul Odor after Cleansing No -Bioengineered Tissue No -Bleeding Controlled with Pressure -Treatment Response Procedure Tolerated Well -Offloading No -Debridement - Subq, 1st 20sq cm Yes #4 right medial LE -Time 10:28 -Correct Patient Yes -Correct Side, Site, Position Yes -Correct Procedure Yes -Procedure Performed No -Post Debridement (cm) - Length 0 -Post Debridement (cm) - Width 0 -Post Debridement (cm) - Depth 0 -Total Square (Post) (cm) 0 -Wound/Ulcer Outcome Not Healed #3 right lateral ankle -Time 10:29 11:19 -Correct Patient Yes Yes -Correct Side, Site, Position Yes Yes -Correct Procedure Yes Yes -Procedure Performed Yes Yes -Type of Procedure Debridement Debridement -Clinical Debridement Subcutaneous Subcutaneous -Tissue Removed Subcutaneous Subcutaneous -Post Debridement (cm) - Length 1.0 0.8 -Post Debridement (cm) - Width 1.0 0.7 -Post Debridement (cm) - Depth 0.3 0.2 -Total Square (Post) (cm) 1.00 0.56 -Area of Debridement (cm) - Length 1.0 0.8 -Area of Debridement (cm) - Width 1.0 0.7 -Total Square (Area) (cm) 1.00 0.56 -Tunneling No No -Undermining/Tunneling No No -Circular Undermining No No -Wound/Ulcer Outcome Not Healed Not Healed -Ulcer Cleansing Rinsed/ Rinsed/ Irrigated with Irrigated with Saline Saline -Foul Odor after Cleansing No No -Bioengineered Tissue No No -Bleeding Controlled with Pressure Pressure -Treatment Response Procedure Procedure Tolerated Well Tolerated Well -Offloading No No -Debridement - Subq, 1st 20sq cm No Yes #1- R LAT LE (P/O BASAL CELL CA) -Time 10:29 11:19 -Correct Patient Yes Yes -Correct Side, Site, Position Yes Yes -Correct Procedure Yes Yes -Procedure Performed Yes Yes -Type of Procedure Debridement Debridement -Clinical Debridement Subcutaneous Subcutaneous -Tissue Removed Subcutaneous Subcutaneous -Post Debridement (cm) - Length 4.0 3.0 -Post Debridement (cm) - Width 3.8 3.5 -Post Debridement (cm) - Depth 0.2 0.1 -Total Square (Post) (cm) 15.20 10.50 -Area of Debridement (cm) - Length 4.0 3.0 -Area of Debridement (cm) - Width 3.8 3.5 -Total Square (Area) (cm) 15.20 10.50 -Tunneling No No -Undermining/Tunneling No No -Circular Undermining No No -Wound/Ulcer Outcome Not Healed Not Healed -Ulcer Cleansing Rinsed/ Rinsed/ Irrigated with Irrigated with Saline Saline -Foul Odor after Cleansing No No -Bioengineered Tissue Yes Yes -Type of Bioengineered Tissue Epifix Mesh Epifix Mesh -Expiration Date 03/04/28 03/04/28 -Product Lot Number [id number] -Percent Used 100 100 -Lot number of Saline Used [id number] -Bleeding Controlled with Pressure Pressure -Treatment Response Procedure Procedure Tolerated Well Tolerated Well -Offloading No No -Debridement - Subq, 1st 20sq cm No No -Apply Skin Sub - 1st 25 sq cm - Legs 1 1 -Epifix Mesh (per sq cm) 11 11 Pain Scale: 0-10 Numeric Is Patient Pain Free? Yes Yes WC - Nurse 3 - General Ulcer D/C NN Start: 06/14/23 10:07 Freq: Status: Active Protocol: Activity Type Activity Date Activity User E-sign Co-sign Detail Recorded Client Recorded Date Recorded By Document 06/14/23 10:52 MW Desktop 06/14/23 10:56 MW Document 06/21/23 11:32 GM Desktop 06/21/23 11:33 GM 06/14/23 06/21/23 10:52 11:32 Wound Care Center Nurse 3 # 5 Right upper arm -Ulcer Cleansing Not Cleansed -Foul Odor after Cleansing No -Negative Pressure Wound Therapy N/A -Primary Dressing Applied Aquacel Extra, Mepilex Border, NonAdherent Contact Layer -Other Dressing adaptic -Aquacel Extra 1 -Mepilex Border 1 #3 right lateral ankle -Ulcer Cleansing Not Cleansed Not Cleansed -Foul Odor after Cleansing No -Negative Pressure Wound Therapy N/A -Primary Dressing Applied Mepilex Border Aquacel Extra, Mepilex Border -Other Dressing aquacel extra epifixe -Aquacel Extra 1 -Mepilex Border 1 1 #1- R LAT LE (P/O BASAL CELL CA) -Ulcer Cleansing Not Cleansed -Foul Odor after Cleansing No -Negative Pressure Wound Therapy N/A -Primary Dressing Applied Mepilex Border -Other Dressing aquacel extra -Mepilex Border 1 Pain Scale: 0-10 Numeric Is Patient Pain Free? Yes Yes Teaching: Wound Center Compression Wraps & Stockings -Person Taught Patient -Teaching Method Discussion -Response to teaching Verbalize understanding Dressing Your Wound -Person Taught Patient Patient -Teaching Method Discussion Discussion -Response to teaching Verbalize Verbalize understanding understanding WC - Visit Discharge Discharge Condition Stable Stable Ambulatory Status Ambulatory Ambulatory,Cane Transportation Private Auto Private Auto Medication Reconcilliation completed & Yes provided to patient/care provider Clinical Summary of Care Provided Yes Additional Wound Wound debrided: Right lateral ankle wound from venous ulcer Type of Debridement: Excisional debridement Anesthesia Used: 5% Lidocaine Gel Depth: Down to and including healthy tissue Percentage of wound debrided: 100 Instrument Used: 3mm curette Tissue Removed: Fibrin some slough Severity: Fat Layer Exposed Amount of bleeding with debridement: Mild Bleeding Controlled with: Compression and gauze and Calcium Alginate Assessment/Plan Assessment/Plan (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: CODE(S): C44.721 - Squamous cell carcinoma of skin of unspecified lower limb, including hip QUALIFIERS: Laterality: right Qualified Code(s): C44.722 - Squamous cell carcinoma of skin of right lower limb, including hip PLAN: EpiFix #5 applied Covered with wound veil and Steri-Strips patient is to leave alone and not take off or shower on that leg (2) Venous ulcer of ankle: CODE(S): I83.003 - Varicose veins of unspecified lower extremity with ulcer of ankle; L97.309 - Non-pressure chronic ulcer of unspecified ankle with unspecified severity QUALIFIERS: Varicose vein presence: with varicose veins Laterality: right Non-pressure ulcer stage: limited to breakdown of skin Qualified Code(s): I83.013 - 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 Galaviz for her right lower leg edema and abnormal venous ultrasounds. Obvious occlusions to her GSV's and she has discoloration to the leg with swelling and pain. (3) Non-pressure ulcer of right lower extremity: CODE(S): L97.919 - Non-pressure chronic ulcer of unspecified part of rightlower leg with unspecified severity QUALIFIERS: Non-pressure ulcer stage: with fat layer exposed Qualified Code(s): L97.912 - Non-pressure chronic ulcer of unspecified part of right lower leg with fat layer exposed PLAN: Wash the right lateral ankle wounds with an antibacterial soap and water pat dry apply Fibracol moistened cover with gauze and dressings daily. Wear a double layer Tubigrip Follow-up in 1 week Continue antibiotic therapy for till done (4) Nonhealing nonsurgical wound: CODE(S): T14.8XXA - Other injury of unspecified body region, initial encounter PLAN: Wash right upper arm with antibacterial soap and water apply Aquacel extrato wound base moistened cover with Adaptic and gauze dressings every day 06/21/23 1148 <Electronically signed by Mariela Martines NP CASTING REPAIRER-C> Cosigner Signature (if applicable): CC: ~ Signed [facility] Work Phone: 1(529) 358-464910-11-2023 Progress note Author Mariela Martines [facility] June 14, 2023 11:10am Note Date/Time June 14, 2023 1 0:44am [facility] [address] [place] [id number] Progress Note - Wound Care 06/14/23 1042 MR#: [id number] Acct: [id number] Name: MARY ALICE GA Rep #:[id number] : 1950 72 From: Mariela Martines NP 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 Khanh Rodriguez MD Status:R EG RCR Location: History of Present Illness Date of Service: 06/14/23 Chief Complaint: Follow-up on her right lower leg lateral area wound nonhealing since at least November. History of Wound: 72-year-old white female in [place] where she is living duringthe winter. She had a growth removed from her right lateral lower leg. She is still not sure if it is cancer or not. After finally getting through to the dermatology she found that they never sent a biopsy off. She saw her own doctor up here and she was referred to us from her and put on cephalexin. Recently she was taken off her Lasix and has terrible edema of her lower extremities and abdomen. Patient states she has gained 9 pounds Patient had been referred to dermatology and has returned after they did Mohs surgery on her right lateral lower leg. They state they got all the cancer out. We will reapply for EpiFix to restart her. We will also also refer to Dr. Galaviz for vascular problems she is having in her right lower leg. Her biggest complaint is that she is swelling a lot in her lower extremities. Worried about a blood clot Now she has breast cancer and is being seen by oncology at [place] for that also. Progress of Wound: So yesterday she had a total left mastectomy. She was seen by Mohs surgeon lastweek and they reapplied a EpiFix to that right lateral lower leg. Measurements are about the same on it except that its more shallow looks good. She has another small open wound on her right lateral ankle is about the same size has some slough in it. She has then developed another avulsion laceration on her right upper arm from lifting her up and scratching her arm. Subjective Subjective Patient is in good spirits and doing well. She agrees with plan of action for all wound areas Objective Data Objective Data Right lateral lower leg we will add another EpiFix is healing well right lateralankle is open and we will use the Fibracol there. She also has a lot of Aquacelextra will use Aquacel extra on her right upper arm with Adaptic. It seems to be a's more superficial wound Vital Signs: Vital Signs Temp Pulse Resp BP O2 Del Method 97 F L 58 L 16 142/58 H Room Air 06/14/23 10:06/14/23 10:08 06/14/23 10:08 06/14/23 10:08 06/14/23 10:08 Oxygen Delivery Method Room Air Physical Exam Const oriented x3 General Appearance: cooperative Exam Limitations: no limitations HEENT normocephalic Head and Scalp: normal to inspection Face and Sinus: normal facial exam Nose: external nose normal General Ear: hearing grossly impaired External Ear: external ears normal Mouth: oral and palatal mucosa normal Eyes PERRL General Eye: normal appearance of both eyes Neck full ROM General: normal visual inspection Resp normal respiratory effort Effort and Inspection: able to speak in complete sentences Auscultation: clear to auscultation bilaterally Cardio regular rate and regular rhythm Palpation: normal PMI Rate: regular rate Rhythm: regular rhythm GI Auscultation: normoactive bowel sounds Palpation: soft and no hepatosplenomegaly external exam normal Back/Spine Cervical Spine: cervical ROM normal Thoracic Spine / Upper Back: normal to inspection Lumbar Spine / Lower Back: normal to inspection Extremity normal to inspection General Extremity: normal exam except as noted Skin no rashes or lesions noted Neuro oriented x3 Psych Appearance: grossly normal Speech: normal speech Thought Content: normal thought content Judgement: judgement good Debridement Note Debridement Note Wound debrided: Right upper arm avulsion laceration Type of Debridement: Excisional debridement Anesthesia Used: 4% Lidocaine Solution and 5% Lidocaine Gel Depth: Down to and including healthy tissue and in the subcutaneous layer Percentage of wound debrided: 100 Instrument Used: 5mm curette Tissue Removed: Fibrin and devitalized tissue removed Severity: Fat Layer Exposed Amount of bleeding with debridement: Mild Bleeding Controlled with: Compression and gauze Patient tolerated procedure: Patient tolerated procedure well Post-Debridement Measurements and Additional Note: Post-Debridement Measurements/Treatment - Nurse 1 - General Ulcer Assessment Start: 06/14/23 10:07 Freq: Status: Active Protocol: WC.LOWLAURIET Activity Type Activity Date Activity User E-sign Co-sign Detail Recorded Client Recorded Date Recorded By Document 06/14/23 10:08 [facility] Desktop 06/14/23 10:16 [facility] 06/14/23 10:08 - Today's Visit Information Type of service Follow-up Visit (Physician/REAL ESTATE LEGAL ASSISTANT ) Arrival Mode Ambulatory Transfer Assistance None Patient Identification Verified (Name & Yes ) Patient Requires Transmission-Based No Precautions Vital Signs Temperature (97.8 F-99.1 F) 97 F L Temperature Source Temporal Pulse Rate (60-100) 58 L Pulse Location Monitor Respiratory Rate (12-18) 16 Respiratory rate source Observation Oxygen Delivery Method Room Air Blood Pressure (90/60-120/80) 142/58 H Blood Pressure Mean (mm Hg) 86 Source Monitor Position Sitting Blood Pressure Location Right Arm Comment pt got out of hosp on post L MASTECTOMY History Since Last Visit- (Skip if this is Patient's initial visit) Have you changed medications since your No last visit? Any new allergies or adverse reactions No Had a fall/change in ADL's that may No increase risk of falls Signs or symptoms of abuse and/or No neglect since last visit Have you been in the hospital since your Yes last visit? Has dressing in place as prescribed Yes Has compression in place as prescribed Yes Has offloadiing in place as prescribed N/A Experienced any changes in pain level or No management Left Footwear Regular Shoe Right Footwear Regular Shoe Pain Scale: 0-10 Numeric Is Patient Pain Free? Yes WC - Nurse 1 - General Ulcer Measurement Start: 06/14/23 10:07 Freq: Status: Active Protocol: Activity Type Activity Date Activity User E-sign Co-sign Detail Recorded Client Recorded Date Recorded By Document 06/14/23 10:08 [facility] Desktop 06/14/23 10:16 [facility] 06/14/23 10:08 Wound Center Nurse 1 #4 right medial LE -Combined with other wound No -Current Size (cm) - Length 0.1 -Current Size (cm) - Width 0.1 -Current Size (cm) - Depth 0.1 -Total Square Cm 0.01 -Epithelialization Large 67-100% -Necrosis Amt Small (1-33%) -Necrotic Tissue Type Eschar -Texture (Elif-wound Skin Appearance) Assessed, Scarring -Moisture (Elif-wound Skin Appearance) Assessed,Dry/ Scaly -Color (Elif-wound Skin Appearance) Assessed -Temperature (Elif-wound Skin No Abnormality Appearance) (Pt Warm) -Tenderness on Palpation (Elif-wound No Skin Appearance) -Ulcer Cleansing Rinsed/ Irrigated with Saline -Foul Odor after Cleansing No -Anesthetic Used 5% Lidocaine Gel #3 right lateral ankle -Combined with other wound No -Current Size (cm) - Length 1 -Current Size (cm) - Width 0.6 -Current Size (cm) - Depth 0.2 -Total Square Cm 0.6 -Photo Taken No -Epithelialization Small 1-33% -Tunneling No -Undermining/Tunneling No -Circular Undermining No -Exudate Amt Medium -Exudate Type Serosanguineous -Wound Margin Distinct, Outline Attached -Granulation Amt None Present (0 %) -Slough/Fibrin Yes -Necrosis Amt Large (67-100%) -Necrotic Tissue Type Adherent Slough -Texture (Elif-wound Skin Appearance) Assessed, Scarring -Moisture (Elif-wound Skin Appearance) Assessed -Color (Elif-wound Skin Appearance) Assessed -Temperature (Elif-wound Skin No Abnormality Appearance) (Pt Warm) -Tenderness on Palpation (Elif-wound No Skin Appearance) -Ulcer Cleansing Rinsed/ Irrigated with Saline -Foul Odor after Cleansing No -Anesthetic Used 5% Lidocaine Gel #1- R LAT LE (P/O BASAL CELL CA) -Combined with other wound No -Current Size (cm) - Length 4.0 -Current Size (cm) - Width 3.7 -Current Size (cm) - Depth 0.2 -Total Square Cm 14.80 -Epithelialization Small 1-33% -Tunneling No -Undermining/Tunneling No -Circular Undermining No -Exudate Amt Large -Exudate Type Serosanguineous -Wound Margin Distinct, Outline Attached -Granulation Amt Large (67-100%) -Granulation Quality Red -Slough/Fibrin Yes -Necrosis Amt Medium (34-66%) -Necrotic Tissue Type Adherent Slough -Texture (Elif-wound Skin Appearance) Assessed, Scarring -Moisture (Elif-wound Skin Appearance) Assessed -Color (Elif-wound Skin Appearance) Assessed -Temperature (Elif-wound Skin No Abnormality Appearance) (Pt Warm) -Tenderness on Palpation (Elif-wound No Skin Appearance) -Ulcer Cleansing Soap and Water -Foul Odor after Cleansing No -Anesthetic Used 5% Lidocaine Gel WC - Nurse 2 - General Ulcer CM Notes Start: 06/14/23 10:07 Freq: Status: Active Protocol: Activity Type Activity Date Activity User E-sign Co-sign Detail Recorded Client Recorded Date Recorded By Document 06/14/23 10:26 MW Desktop 06/14/23 10:36 MW 06/14/23 10:26 Wound Center Nurse 2 #4 right medial LE -Time 10:28 -Correct Patient Yes -Correct Side, Site, Position Yes -Correct Procedure Yes -Procedure Performed No -Post Debridement (cm) - Length 0 -Post Debridement (cm) - Width 0 -Post Debridement (cm) - Depth 0 -Total Square (Post) (cm) 0 -Wound/Ulcer Outcome Not Healed # 5 Right upper arm -Time 10:31 -Correct Patient Yes -Correct Side, Site, Position Yes -Correct Procedure Yes -Procedure Performed Yes -Type of Procedure Debridement -Clinical Debridement Subcutaneous -Tissue Removed Subcutaneous -Post Debridement (cm) - Length 2.5 -Post Debridement (cm) - Width 3.0 -Post Debridement (cm) - Depth 0.1 -Total Square (Post) (cm) 7.50 -Area of Debridement (cm) - Length 2.5 -Area of Debridement (cm) - Width 3.0 -Total Square (Area) (cm) 7.50 -Tunneling No -Undermining/Tunneling No -Circular Undermining No -Wound/Ulcer Outcome Not Healed -Ulcer Cleansing Rinsed/ Irrigated with Saline -Foul Odor after Cleansing No -Bioengineered Tissue No -Bleeding Controlled with Pressure -Treatment Response Procedure Tolerated Well -Offloading No -Debridement - Subq, 1st 20sq cm No #3 right lateral ankle -Time 10:29 -Correct Patient Yes -Correct Side, Site, Position Yes -Correct Procedure Yes -Procedure Performed Yes -Type of Procedure Debridement -Clinical Debridement Subcutaneous -Tissue Removed Subcutaneous -Post Debridement (cm) - Length 1.0 -Post Debridement (cm) - Width 1.0 -Post Debridement (cm) - Depth 0.3 -Total Square (Post) (cm) 1.00 -Area of Debridement (cm) - Length 1.0 -Area of Debridement (cm) - Width 1.0 -Total Square (Area) (cm) 1.00 -Tunneling No -Undermining/Tunneling No -Circular Undermining No -Wound/Ulcer Outcome Not Healed -Ulcer Cleansing Rinsed/ Irrigated with Saline -Foul Odor after Cleansing No -Bioengineered Tissue No -Bleeding Controlled with Pressure -Treatment Response Procedure Tolerated Well -Offloading No -Debridement - Subq, 1st 20sq cm Yes #1- R LAT LE (P/O BASAL CELL CA) -Time 10:29 -Correct Patient Yes -Correct Side, Site, Position Yes -Correct Procedure Yes -Procedure Performed Yes -Type of Procedure Debridement -Clinical Debridement Subcutaneous -Tissue Removed Subcutaneous -Post Debridement (cm) - Length 4.0 -Post Debridement (cm) - Width 3.8 -Post Debridement (cm) - Depth 0.2 -Total Square (Post) (cm) 15.20 -Area of Debridement (cm) - Length 4.0 -Area of Debridement (cm) - Width 3.8 -Total Square (Area) (cm) 15.20 -Tunneling No -Undermining/Tunneling No -Circular Undermining No -Wound/Ulcer Outcome Not Healed -Ulcer Cleansing Rinsed/ Irrigated with Saline -Foul Odor after Cleansing No -Bioengineered Tissue Yes -Type of Bioengineered Tissue Epifix Mesh -Expiration Date 03/04/28 -Product Lot Number [id number] -Percent Used 100 -Lot number of Saline Used [id number] -Bleeding Controlled with Pressure -Treatment Response Procedure Tolerated Well -Offloading No -Debridement - Subq, 1st 20sq cm No -Apply Skin Sub - 1st 25 sq cm - Legs 1 -Epifix Mesh (per sq cm) 11 Pain Scale: 0-10 Numeric Is Patient Pain Free? Yes Additional Wound Wound debrided: Right lateral lower leg cancer Mohs surgeon open wound Type of Debridement: Excisional debridement Anesthesia Used: 5% Lidocaine Gel Depth: Down to and including healthy tissue and in the subcutaneous layer Percentage of wound debrided: 100 Instrument Used: 5mm curette Tissue Removed: Fibrin Severity: Fat Layer Exposed Amount of bleeding with debridement: Mild Bleeding Controlled with: Compression and gauze Patient tolerated procedure: Patient tolerated procedure well Additional Wound Wound debrided: Right lateral ankle wound venous Type of Debridement: Excisional debridement Anesthesia Used: 5% Lidocaine Gel Depth: Down to and including healthy tissue and in the subcutaneous layer Percentage of wound debrided: 100 Instrument Used: 3mm curette Tissue Removed: Fibrin and some slough Severity: Fat Layer Exposed Amount of bleeding with debridement: Mild Bleeding Controlled with: Compression and gauze Patient tolerated procedure: Patient tolerated procedure well Assessment/Plan Assessment/Plan (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: CODE(S): C44.721 - Squamous cell carcinoma of skin of unspecified lower limb, including hip QUALIFIERS: Laterality: right Qualified Code(s): C44.722 - Squamous cell carcinoma of skin of right lower limb, including hip PLAN: EpiFix #4 applied Covered with wound veil and Steri-Strips patient is to leave alone and not take off or shower on that leg (2) Venous ulcer of ankle: CODE(S): I83.003 - Varicose veins of unspecified lower extremity with ulcer of ankle; L97.309 - Non-pressure chronic ulcer of unspecified ankle with unspecified severity QUALIFIERS: Varicose vein presence: with varicose veins Laterality: right Non-pressure ulcer stage: limited to breakdown of skin Qualified Code(s): I83.013 - 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 Galaviz for her right lower leg edema and abnormal venous ultrasounds. Obvious occlusions to her GSV's and she has discoloration to the leg with swelling and pain. (3) Non-pressure ulcer of right lower extremity: CODE(S): L97.919 - Non-pressure chronic ulcer of unspecified part of rightlower leg with unspecified severity QUALIFIERS: Non-pressure ulcer stage: with fat layer exposed Qualified Code(s): L97.912 - Non-pressure chronic ulcer of unspecified part of right lower leg with fat layer exposed PLAN: Wash the right lateral ankle wounds with an antibacterial soap and water pat dry apply Fibracol moistened cover with gauze and dressings daily. Wear a double layer Tubigrip Follow-up in 1 week Continue antibiotic therapy for till done (4) Nonhealing nonsurgical wound: CODE(S): T14.8XXA - Other injury of unspecified body region, initial encounter PLAN: Wash right upper arm with antibacterial soap and water apply Aquacel extrato wound base moistened cover with Adaptic and gauze dressings every day 06/14/23 1110 <Electronically signed by Mariela Martines NP CASTING REPAIRER-C> Cosigner Signature (if applicable): CC: ~ Signed [facility] Work Phone: [phone]) 124-267408-16-2023 Progress note Author Mariela Martines [facility] April 19, 2023 12:33pm Note Date/Time April 19, 2023 12 :33pm [facility] [address] [place] [id number] Progress Note - Wound Care 04/19/23 1224 MR#: [id number] Acct: [id number] Name: MARY ALICE GA Rep #:[id number] : 1950 72 From: Mariela Martines NP 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 Khanh Rodriguez MD Status:R EG RCR Location: History of Present Illness Date of Service: 04/19/23 Chief Complaint: Follow-up on her right lower leg lateral area wound nonhealing since at least November. History of Wound: 72-year-old white female in [place] where she is living duringthe winter. She had a growth removed from her right lateral lower leg. She is still not sure if it is cancer or not. After finally getting through to the dermatology she found that they never sent a biopsy off. She saw her own doctor up here and she was referred to us from her and put on cephalexin. Recently she was taken off her Lasix and has terrible edema of her lower extremities and abdomen. Patient states she has gained 9 pounds Patient was tired of coming and wanted to be healed out so we did and now she returns 1 month later. Patient states that the edema in her lower extremities is because that right lower leg to reopen. We are still able to get EpiFix she will start on #6 today. We will also refer her to dermatology here and get a another biopsy of the woundand see if it is cancer or not before we waste any more EpiFix is on her. Also refer to Dr. Galaviz for vascular Her biggest complaint is that she is swelling a lot in her lower extremities. Worried about a blood clot We will get a venous duplex study done wound center style to see if there is anyblockages or blood clot. We are getting that stat at 2:00 today Progress of Wound: Wound is flat macular open nonhealing. Right lateral lower leg bilateral lower legs are edematous pitting. Subjective Subjective Patient is good for getting a duplex study done today and we will refer her to dermatology and to vascular Objective Data Objective Data Right lateral lower leg is still not healed it still open debrided fibrin off but has some devitalized tissue also a lot of pitting edema noted in the right lower leg also in the left lower leg but right leg is worse than left. We will get duplex study some stat done today and get her referred to dermatology in thenext couple of days for biopsy Patient states that she feels the edema has reopened that wound on her right lower leg and that is why she returned Vital Signs: Vital Signs Temp Pulse Resp BP O2 Del Method 96.9 F L 63 16 120/65 Room Air 04/19/23 10:55 04/19/23 10:55 04/19/23 10:55 04/19/23 10:55 04/19/23 10:55 Oxygen Delivery Method Room Air Weight: 137 lb Body Mass Index (BMI) 23.5 Lab / Micro Data Attestation: I reviewed the patient's lab results. Physical Exam Const oriented x3 General Appearance: cooperative Exam Limitations: no limitations HEENT normocephalic Head and Scalp: normal to inspection Face and Sinus: normal facial exam Nose: external nose normal External Ear: external ears normal Eyes PERRL General Eye: normal appearance of both eyes Neck full ROM General: normal visual inspection Resp normal respiratory effort Effort and Inspection: able to speak in complete sentences Auscultation: clear to auscultation bilaterally Cardio regular rate and regular rhythm Palpation: normal PMI Rate: regular rate Rhythm: regular rhythm GI Auscultation: normoactive bowel sounds Palpation: soft and no hepatosplenomegaly Extremity Extremity Narrative: Edema from at least knees down to even toes like little sausages. Discolorationof her lower legs from probably peripheral vascular disease. She does have obvious varicosities. General Extremity: normal exam except as noted Skin General Skin Exam: erythema and venous stasis Wounds: wounds noted Wound Narrative: Rather large size of a $0.50 piece full-thickness open wound on the right lateral leg. We will try to get studies from the other doctor. Neuro oriented x3 Psych Appearance: grossly normal Speech: normal speech Thought Content: normal thought content Judgement: judgement good Debridement Note Debridement Note Wound debrided: Right lateral lower leg nonhealing nonsurgical wound from a biopsy of growt Type of Debridement: Excisional debridement Anesthesia Used: 5% Lidocaine Gel Depth: in the subcutaneous layer Percentage of wound debrided: 100 Instrument Used: 5mm curette Severity: Fat Layer Exposed Amount of bleeding with debridement: Mild Bleeding Controlled with: Compression and gauze Patient tolerated procedure: Patient tolerated procedure well Post-Debridement Measurements and Additional Note: Post-Debridement Measurements/Treatment - Nurse 1 - General Ulcer Assessment Start: 04/19/23 10:55 Freq: Status: Active Protocol: ASHIL Activity Type Activity Date Activity User E-sign Co-sign Detail Recorded Client Recorded Date Recorded By Document 04/19/23 10:55 [facility] [id number] 04/19/23 11:03 [facility] 04/19/23 10:55 - Today's Visit Information Type of service Follow-up Visit (Physician/REAL ESTATE LEGAL ASSISTANT ) Arrival Mode Ambulatory,Cane Transfer Assistance None Patient Identification Verified (Name & Yes ) Patient Requires Transmission-Based No Precautions Height and Weight Body Mass Index (BMI) 23.5 BMI Classification Normal Vital Signs Temperature (97.8 F-99.1 F) 96.9 F L Temperature Source Temporal Pulse Rate (60-100) 63 Pulse Location Monitor Respiratory Rate (12-18) 16 Respiratory rate source Observation Oxygen Delivery Method Room Air Blood Pressure (90/60-120/80) 120/65 Blood Pressure Mean (mm Hg) 83 Source Monitor Position Sitting Blood Pressure Location Left Arm History Since Last Visit- (Skip if this is Patient's initial visit) Left Footwear Regular Shoe Right Footwear Regular Shoe Pain Scale: 0-10 Numeric Is Patient Pain Free? Yes WC - Nurse 1 - General Ulcer Measurement Start: 04/19/23 10:55 Freq: Status: Active Protocol: Activity Type Activity Date Activity User E-sign Co-sign Detail Recorded Client Recorded Date Recorded By Document 04/19/23 10:55 [facility] [id number] 04/19/23 11:03 [facility] 04/19/23 10:55 Wound Center Nurse 1 #1- R LAT LE (P/O BASAL CELL CA) -Combined with other wound No -Current Size (cm) - Length 1.7 -Current Size (cm) - Width 1.4 -Current Size (cm) - Depth 0.1 -Total Square Cm 2.38 -Date of Last Picture (Recall this 04/19/23 field) -Photo Taken Yes -Epithelialization None Present -Tunneling No -Undermining/Tunneling No -Circular Undermining No -Exudate Amt Medium -Exudate Type Serosanguineous -Wound Margin Flat & Intact -Granulation Amt Large (67-100%) -Granulation Quality Red -Slough/Fibrin Yes -Necrosis Amt Small (1-33%) -Necrotic Tissue Type Adherent Slough -Texture (Elif-wound Skin Appearance) Assessed -Moisture (Elif-wound Skin Appearance) Assessed,Dry/ Scaly -Color (Elif-wound Skin Appearance) Assessed -Temperature (Elif-wound Skin No Abnormality Appearance) (Pt Warm) -Tenderness on Palpation (Elif-wound No Skin Appearance) -Ulcer Cleansing Rinsed/ Irrigated with Saline -Foul Odor after Cleansing No -Anesthetic Used 5% Lidocaine Gel Lower Limb Edema Present Yes Right Calf (cm) 37.2 Right Ankle (cm) 23.6 WC - Nurse 2 - General Ulcer CM Notes Start: 04/19/23 10:55 Freq: Status: Active Protocol: Activity Type Activity Date Activity User E-sign Co-sign Detail Recorded Client Recorded Date Recorded By Document 04/19/23 11:14 MW [id number] 04/19/23 11:29 MW 04/19/23 11:14 Wound Center Nurse 2 #1- R LAT LE (P/O BASAL CELL CA) -Time 11:17 -Correct Patient Yes -Correct Side, Site, Position Yes -Correct Procedure Yes -Procedure Performed Yes -Type of Procedure Debridement -Clinical Debridement Subcutaneous -Tissue Removed Subcutaneous -Post Debridement (cm) - Length 1.8 -Post Debridement (cm) - Width 1.3 -Post Debridement (cm) - Depth 0.1 -Total Square (Post) (cm) 2.34 -Area of Debridement (cm) - Length 1.8 -Area of Debridement (cm) - Width 1.3 -Total Square (Area) (cm) 2.34 -Tunneling No -Undermining/Tunneling No -Circular Undermining No -Wound/Ulcer Outcome Not Healed -Ulcer Cleansing Rinsed/ Irrigated with Saline -Foul Odor after Cleansing No -Bioengineered Tissue Yes -Type of Bioengineered Tissue Epifix 18mm Disc -Expiration Date 01/03/28 -Product Lot Number [id number] -Percent Used 100 -Lot number of Saline Used [id number] -Bleeding Controlled with NA,Pressure -Treatment Response Procedure Tolerated Well -Offloading No -Debridement - Subq, 1st 20sq cm No -Apply Skin Sub - 1st 25 sq cm - Legs 1 -Epifix 18mm Disc 3 Pain Scale: 0-10 Numeric Is Patient Pain Free? Yes - Nurse 3 - General Ulcer D/C NN Start: 04/19/23 10:55 Freq: Status: Active Protocol: Activity Type Activity Date Activity User E-sign Co-sign Detail Recorded Client Recorded Date Recorded By Document 04/19/23 11:45 [facility] [id number] 04/19/23 11:46 [facility] 04/19/23 11:45 Wound Care Center Nurse 3 #1- R LAT LE (P/O BASAL CELL CA) -Primary Dressing Applied Mepilex Border -Other Dressing EPIFIX -Mepilex Border 1 Pain Scale: 0-10 Numeric Is Patient Pain Free? Yes WC - Visit Discharge Discharge Condition Stable Ambulatory Status Ambulatory,Cane Transportation Private Auto Accompanied by Assessment/Plan Assessment/Plan (1) Cellulitis: CODE(S): L03.90 - Cellulitis, unspecified QUALIFIERS: Site of cellulitis: extremity Site of cellulitis of extremity: upper extremity Laterality: right Qualified Code(s): L03.113 - Cellulitis of right upper limb (2) Ulcer of right leg: CODE(S): L97.919 - Non-pressure chronic ulcer of unspecified part of rightlower leg with unspecified severity QUALIFIERS: Non-pressure ulcer stage: with fat layer exposed Qualified Code(s): L97.912 - Non-pressure chronic ulcer of unspecified part of right lower leg with fat layer exposed PLAN: EpiFix #6 applied to right lower leg with a veil and Aquacel extra over top Do not get wet follow-up in 1 week We will do a referral to dermatology and to vascular Patient has a stat duplex study done at 2:00 today we will get results and call. (3) Varicose veins of both lower extremities: CODE(S): I83.93 - Asymptomatic varicose veins of bilateral lower extremities QUALIFIERS: Varicose vein complication: asymptomatic Qualified Code(s): I83.93 - Asymptomatic varicose veins of bilateral lower extremities (4) Edema of both lower extremities: CODE(S): R60.0 - Localized edema (5) Non-pressure ulcer of right lower extremity: CODE(S): L97.919 - Non-pressure chronic ulcer of unspecified part of rightlower leg with unspecified severity QUALIFIERS: Non-pressure ulcer stage: with fat layer exposed Qualified Code(s): L97.912 - Non-pressure chronic ulcer of unspecified part of right lower leg with fat layer exposed 04/19/23 1233 <Electronically signed by Mariela Martines NP CASTING REPAIRER-C> Cosigner Signature (if applicable): CC: ~ Signed [facility] Work Phone: 1(551) 990-856307-26-2023 Progress note Author Mariela Martines [facility] March 29, 2023 12:10pm Note Date/Time March 29, 2023 12:1 0pm [facility] [address] [place] [address] Progress Note - Wound Care 03/29/23 1209 MR#: [id number] Acct: [id number] Name: MARY ALICE GA Rep #:[id number] : 1950 72 From: Mariela Martines NP 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 Khanh Rodriguez MD Status:R EG RCR Location: History of Present Illness Date of Service: 03/29/23 Chief Complaint: Follow-up on her right lower leg lateral area wound nonhealing since at least November. History of Wound: 72-year-old white female in [place] where she is living duringthe winter. She had a growth removed from her right lateral lower leg. She is still not sure if it is cancer or not. Was removed only by her regular doctor not a Derm doctor. Still open to the subcutaneous skin. She saw her own doctor up here and she was referred to us from her and put on cephalexin. Recently she was taken off her Lasix and has terrible edema of her lower extremities and abdomen. Patient states she has gained 9 pounds Progress of Wound: Today the wound is healed on the right lateral lower leg on EpiFix #5. Patient tolerated very well patient will be discharged from the wound center Subjective Subjective Patient is very happy with outcomes Objective Data Objective Data As stated above wound is healed patient be discharged from the wound center keepcovered for another week for new skin follow-up as needed Vital Signs: Vital Signs Temp Pulse Resp BP 97 F L 61 18 107/50 L 03/29/23 11:11 03/29/23 11:11 03/29/23 11:11 03/29/23 11:11 Weight: 137 lb Body Mass Index (BMI) 23.5 Debridement Note Debridement Note Post-Debridement Measurements and Additional Note: Post-Debridement Measurements/Treatment WC - Nurse 1 - General Ulcer Assessment Start: 03/15/23 09:23 Freq: Status: Active Protocol: [email or web address] Activity Type Activity Date Activity User E-sign Co-sign Detail Recorded Client Recorded Date Recorded By Document 03/15/23 09:26 DL [id number] 03/15/23 09:37 DL Document 03/22/23 10:37 RB [id number] 03/22/23 10:38 RB Document 03/29/23 11:11 RB [id number] 03/29/23 11:15 RB 03/15/23 03/22/23 03/29/23 09:26 10:37 11:11 - Today's Visit Information Type of service Follow-up Visit Follow-up Visit Follow-up Visit (Physician/REAL ESTATE LEGAL ASSISTANT (Physician/REAL ESTATE LEGAL ASSISTANT (Physician/REAL ESTATE LEGAL ASSISTANT ) ) ) Arrival Mode Ambulatory,Cane Ambulatory Ambulatory Transfer Assistance None None None Patient Identification Verified (Name & Yes Yes Yes ) Patient Requires Transmission-Based No No No Precautions Height and Weight Body Mass Index (BMI) 23.5 23.5 23.5 BMI Classification Normal Normal Normal Vital Signs Temperature (97.8 F-99.1 F) 97.4 F L 96.3 F L 97 F L Temperature Source Temporal Temporal Temporal Pulse Rate (60-100) 59 L 69 61 Pulse Location Monitor Monitor Respiratory Rate (12-18) 20 H 18 18 Respiratory rate source Observation Observation Observation Blood Pressure (90/60-120/80) 123/52 H 110/48 L 107/50 L Blood Pressure Mean (mm Hg) 75 68 69 Source Monitor Monitor Monitor Position Sitting Sitting Blood Pressure Location Left Arm Left Arm History Since Last Visit- (Skip if this is Patient's initial visit) Have you changed medications since your No No No last visit? Any new allergies or adverse reactions No No No Had a fall/change in ADL's that may No No No increase risk of falls Signs or symptoms of abuse and/or No No No neglect since last visit Have you been in the hospital since your No No No last visit? Has dressing in place as prescribed Yes Yes Yes Has compression in place as prescribed Yes Yes No Has offloadiing in place as prescribed No No No Experienced any changes in pain level or No No No management Pain Scale: 0-10 Numeric Is Patient Pain Free? Yes Yes Yes - Nurse 1 - General Ulcer Measurement Start: 03/15/23 09:23 Freq: Status: Active Protocol: Activity Type Activity Date Activity User E-sign Co-sign Detail Recorded Client Recorded Date Recorded By Document 03/15/23 09:26 DL [id number] 03/15/23 09:37 DL Document 07/19/23 10:37 RB [id number] 03/22/23 10:38 RB Document 03/29/23 11:11 RB [id number] 03/29/23 11:15 RB 03/15/23 03/22/23 03/29/23 09:26 10:37 11:11 Wound Center Nurse 1 2. R forearm -Current Size (cm) - Length 0 -Current Size (cm) - Width 0 -Current Size (cm) - Depth 0 -Total Square Cm 0 -Photo Taken Yes -Exudate Amt None Present -Wound Margin Indistinct, Non -Visible -Granulation Amt Large (67-100%) -Granulation Quality [place] -Necrosis Amt None Present (0 %) -Structure Exposed N/A -Texture (Elif-wound Skin Appearance) Scarring -Moisture (Elif-wound Skin Appearance) No Abnormality -Color (Elif-wound Skin Appearance) No Abnormality -Temperature (Elif-wound Skin No Abnormality Appearance) (Pt Warm) -Foul Odor after Cleansing No #1- R LAT LE (P/O BASAL CELL CA) -Combined with other wound No No -Current Size (cm) - Length 2.5 2.6 0.1 -Current Size (cm) - Width 1.8 2 0.1 -Current Size (cm) - Depth 0.1 0.1 0.1 -Total Square Cm 4.50 5.2 0.01 -Photo Taken Yes -Tunneling No No -Undermining/Tunneling No No -Circular Undermining No No -Exudate Amt Medium Medium Large -Exudate Type Serosanguineous Serosanguineous Serosanguineous -Wound Margin Distinct, Distinct, Distinct, Outline Outline Outline Attached Attached Attached -Granulation Amt Medium (34-66%) Medium (34-66%) Medium (34-66%) -Granulation Quality Red [place] -Slough/Fibrin Yes Yes -Necrosis Amt Medium (34-66%) Medium (34-66%) Medium (34-66%) -Necrotic Tissue Type Adherent Slough Adherent Slough Adherent Slough -Structure Exposed N/A N/A N/A -Texture (Elif-wound Skin Appearance) Scarring Assessed Assessed -Moisture (Elif-wound Skin Appearance) No Abnormality Assessed Assessed -Color (Elif-wound Skin Appearance) Hemosiderin Assessed Assessed Staining -Temperature (Elif-wound Skin No Abnormality No Abnormality Appearance) (Pt Warm) (Pt Warm) -Tenderness on Palpation (Elif-wound No No No Skin Appearance) -Ulcer Cleansing Soap and Water Wound Cleanser Wound Cleanser -Foul Odor after Cleansing No No No -Anesthetic Used 5% Lidocaine 5% Lidocaine 5% Lidocaine Gel Gel Gel Right Calf (cm) 31.8 Right Ankle (cm) 22.6 WC - Nurse 2 - General Ulcer CM Notes Start: 03/15/23 09:23 Freq: Status: Active Protocol: Activity Type Activity Date Activity User E-sign Co-sign Detail Recorded Client Recorded Date Recorded By Document 03/15/23 09:55 MW [id number] 03/15/23 10:02 MW Document 03/22/23 10:59 MW [id number] 03/22/23 11:04 MW Document 03/29/23 11:25 MW [id number] 03/29/23 11:27 MW 03/15/23 03/22/23 03/29/23 09:55 10:59 11:25 Wound Center Nurse 2 2. R forearm -Time 09:59 -Correct Patient Yes -Correct Side, Site, Position Yes -Correct Procedure Yes -Procedure Performed No -Post Debridement (cm) - Length 0 -Post Debridement (cm) - Width 0 -Post Debridement (cm) - Depth 0 -Total Square (Post) (cm) 0 -Wound/Ulcer Outcome Healed- Epithelialized #1- R LAT LE (P/O BASAL CELL CA) -Time 09:59 10:59 11:25 -Correct Patient Yes Yes Yes -Correct Side, Site, Position Yes Yes Yes -Correct Procedure Yes Yes Yes -Procedure Performed Yes Yes No -Type of Procedure Debridement Debridement -Clinical Debridement Subcutaneous Subcutaneous -Tissue Removed Subcutaneous Subcutaneous Subcutaneous -Post Debridement (cm) - Length 2.5 1.9 0 -Post Debridement (cm) - Width 2.0 1.3 0 -Post Debridement (cm) - Depth 0.1 0.1 0 -Total Square (Post) (cm) 5.00 2.47 0 -Area of Debridement (cm) - Length 2.5 1.9 -Area of Debridement (cm) - Width 2.0 1.3 -Total Square (Area) (cm) 5.00 2.47 -Tunneling No No No -Undermining/Tunneling No No No -Circular Undermining No No No -Wound/Ulcer Outcome Not Healed Not Healed Healed- Epithelialized -Ulcer Cleansing Rinsed/ Rinsed/ Irrigated with Irrigated with Saline Saline -Foul Odor after Cleansing No No -Bioengineered Tissue Yes Yes -Type of Bioengineered Tissue Epifix Mesh Epifix -Expiration Date 12/04/27 11/03/27 -Product Lot Number [id number] -Percent Used 100 100 -Lot number of Saline Used [id number] -Bleeding Controlled with Pressure Pressure -Treatment Response Procedure Procedure Tolerated Well Tolerated Well -Offloading No No -Debridement - Subq, 1st 20sq cm No No -Apply Skin Sub - 1st 25 sq cm - Legs 1 1 -Epifix (per sq cm) 4 -Epifix Mesh (per sq cm) 11 Pain Scale: 0-10 Numeric Is Patient Pain Free? Yes Yes Yes WC - Nurse 3 - General Ulcer D/C NN Start: 03/15/23 09:23 Freq: Status: Active Protocol: Activity Type Activity Date Activity User E-sign Co-sign Detail Recorded Client Recorded Date Recorded By Document 03/15/23 10:02 MW [id number] 03/15/23 10:02 MW Edit Result 03/15/23 10:02 MW (1) [id number] 03/15/23 10:03 MW Edit Result 03/15/23 10:02 MW (2) [id number] 03/15/23 10:04 MW Document 03/22/23 11:16 RB [id number] 03/22/23 11:17 RB Document 03/29/23 11:27 MW [id number] 03/29/23 11:28 MW (1) Right - Compression Wrap Antonio Wrap => - Tubular Bandage => Single Layer - Size of Tubigrip Used => Size E - Size E ($) => 1 (2) Right - Size of Tubigrip Used Size E => Size D - Size D ($) => 1 - Size E ($) 1 => 03/15/23 03/22/23 03/29/23 10:02 11:16 11:27 Wound Care Center Nurse 3 #1- Mar[place] JAMESON (P/O BASAL CELL CA) -Ulcer Cleansing Not Cleansed -Primary Dressing Applied Mepilex Border -Other Dressing abd pad/ antonio -Primary Dressing Covered/Secured with Dry Gauze Dry Gauze, Secured with Tape -Other Covering abd -Mepilex Border 1 Right -Lotion applied to leg before No compression wrap -Tubular Bandage Single Layer -Size of Tubigrip Used Size D -Size D ($) 1 -Other antonio Treatment Response Procedure Procedure Procedure Tolerated Well Tolerated Well Tolerated Well Pain Scale: 0-10 Numeric Is Patient Pain Free? Yes Yes Yes Teaching: Wound Center Discharge Instructions -Person Taught Patient -Teaching Method Discussion -Response to teaching Verbalize understanding Dressing Your Wound -Person Taught Patient -Teaching Method Discussion -Response to teaching Verbalize understanding WC - Visit Discharge Discharge Condition Stable Stable Stable Ambulatory Status Ambulatory Ambulatory Ambulatory Transportation Private Auto Private Auto Private Auto Accompanied by Medication Reconcilliation completed & No No No provided to patient/care provider Clinical Summary of Care Provided Yes Yes Yes Assessment/Plan Assessment/Plan (1) Nonhealing nonsurgical wound: CODE(S): T14.8XXA - Other injury of unspecified body region, initial encounter PLAN: Resolved forearm skin tear open to air (2) Cellulitis: CODE(S): L03.90 - Cellulitis, unspecified QUALIFIERS: Site of cellulitis: extremity Site of cellulitis of extremity: upper extremity Laterality: right Qualified Code(s): L03.113 - Cellulitis of right upper limb (3) Ulcer of right leg: CODE(S): L97.919 - Non-pressure chronic ulcer of unspecified part of rightlower leg with unspecified severity QUALIFIERS: Non-pressure ulcer stage: with fat layer exposed Qualified Code(s): L97.912 - Non-pressure chronic ulcer of unspecified part of right lower leg with fat layer exposed PLAN: Discharge from the wound center follow-up as needed (4) Varicose veins of both lower extremities: CODE(S): I83.93 - Asymptomatic varicose veins of bilateral lower extremities QUALIFIERS: Varicose vein complication: asymptomatic Qualified Code(s): I83.93 - Asymptomatic varicose veins of bilateral lower extremities (5) Edema of both lower extremities: CODE(S): R60.0 - Localized edema (6) Non-pressure ulcer of right lower extremity: CODE(S): L97.919 - Non-pressure chronic ulcer of unspecified part of rightlower leg with unspecified severity QUALIFIERS: Non-pressure ulcer stage: with fat layer exposed Qualified Code(s): L97.912 - Non-pressure chronic ulcer of unspecified part of right lower leg with fat layer exposed 03/29/23 1210 <Electronically signed by Mariela Martines NP CASTING REPAIRER-C> Cosigner Signature (if applicable): CC: ~ Signed [facility] Work Phone: 1(816) 973-530507-19-2023 Progress note Author Mariela Martines [facility] March 22, 2023 11:56am Note Date/Time March 22, 2023 11:5 6am [facility] [address] [place] [id number] Progress Note - Wound Care 03/22/23 1153 MR#: [id number] Acct: [id number] Name: MARY ALICE GA Rep #:[id number] : 1950 72 From: Mariela Martines NP 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 Khanh Rodriguez MD Status:R EG RCR Location: History of Present Illness Date of Service: 03/22/23 Chief Complaint: Follow-up on her right lower leg lateral area wound nonhealing since at least November. History of Wound: 72-year-old white female in [place] where she is living duringthe winter. She had a growth removed from her right lateral lower leg. She is still not sure if it is cancer or not. Was removed only by her regular doctor not a Derm doctor. Still open to the subcutaneous skin. She saw her own doctor up here and she was referred to us from her and put on cephalexin. Recently she was taken off her Lasix and has terrible edema of her lower extremities and abdomen. Patient states she has gained 9 pounds Progress of Wound: The right forearm partial of skin avulsion laceration from the dog scratch is healed. Right lateral leg is almost healed she has a small area in the center that is just not closed we will apply epi #5 to her leg. Subjective Subjective Patient very disappointed she cannot be discharged today but I promised her probably in 1 week Objective Data Objective Data Again as above no sign of infection just the center has some new skin buds but still has not filled them properly for closure Vital Signs: Vital Signs Temp Pulse Resp BP 96.3 F L 69 18 110/48 L 03/22/23 10:37 03/22/23 10:37 03/22/23 10:37 03/22/23 10:37 Weight: 137 lb Body Mass Index (BMI) 23.5 Lab / Micro Data Attestation: I reviewed the patient's lab results. Physical Exam Const oriented x3 General Appearance: cooperative Exam Limitations: no limitations HEENT normocephalic Head and Scalp: normal to inspection Face and Sinus: normal facial exam Nose: external nose normal External Ear: external ears normal Eyes PERRL General Eye: normal appearance of both eyes Neck full ROM General: normal visual inspection Resp normal respiratory effort Effort and Inspection: able to speak in complete sentences Auscultation: clear to auscultation bilaterally Cardio regular rate and regular rhythm Palpation: normal PMI Rate: regular rate Rhythm: regular rhythm GI Auscultation: normoactive bowel sounds Palpation: soft and no hepatosplenomegaly Extremity Extremity Narrative: Edema from at least knees down to even toes like little sausages. Discolorationof her lower legs from probably peripheral vascular disease. She does have obvious varicosities. General Extremity: normal exam except as noted Skin General Skin Exam: erythema and venous stasis Wounds: wounds noted Wound Narrative: Rather large size of a $0.50 piece full-thickness open wound on the right lateral leg. We will try to get studies from the other doctor. Neuro oriented x3 Psych Appearance: grossly normal Speech: normal speech Thought Content: normal thought content Judgement: judgement good Debridement Note Debridement Note Wound debrided: Right lateral lower leg nonhealing surgical wound from a cancer growth that Type of Debridement: Excisional debridement Anesthesia Used: 5% Lidocaine Gel Depth: Down to and including healthy tissue Percentage of wound debrided: 100 Instrument Used: 5mm curette Tissue Removed: Fibrin Severity: Limited To Skin Breakdown Amount of bleeding with debridement: Mild Bleeding Controlled with: Compression and gauze Patient tolerated procedure: Patient tolerated procedure well Post-Debridement Measurements and Additional Note: Post-Debridement Measurements/Treatment WC - Nurse 1 - General Ulcer Assessment Start: 03/15/23 09:23 Freq: Status: Active Protocol: SAHIL Activity Type Activity Date Activity User E-sign Co-sign Detail Recorded Client Recorded Date Recorded By Document 03/15/23 09:26 DL [id number] 03/15/23 09:37 DL Document 03/22/23 10:37 RB [id number] 03/22/23 10:38 RB 03/15/23 03/22/23 09:26 10:37 - Today's Visit Information Type of service Follow-up Visit Follow-up Visit (Physician/REAL ESTATE LEGAL ASSISTANT (Physician/REAL ESTATE LEGAL ASSISTANT ) ) Arrival Mode Ambulatory,Cane Ambulatory Transfer Assistance None None Patient Identification Verified (Name & Yes Yes ) Patient Requires Transmission-Based No No Precautions Height and Weight Body Mass Index (BMI) 23.5 23.5 BMI Classification Normal Normal Vital Signs Temperature (97.8 F-99.1 F) 97.4 F L 96.3 F L Temperature Source Temporal Temporal Pulse Rate (60-100) 59 L 69 Pulse Location Monitor Respiratory Rate (12-18) 20 H 18 Respiratory rate source Observation Observation Blood Pressure (90/60-120/80) 123/52 H 110/48 L Blood Pressure Mean (mm Hg) 75 68 Source Monitor Monitor Position Sitting Blood Pressure Location Left Arm History Since Last Visit- (Skip if this is Patient's initial visit) Have you changed medications since your No No last visit? Any new allergies or adverse reactions No No Had a fall/change in ADL's that may No No increase risk of falls Signs or symptoms of abuse and/or No No neglect since last visit Have you been in the hospital since your No No last visit? Has dressing in place as prescribed Yes Yes Has compression in place as prescribed Yes Yes Has offloadiing in place as prescribed No No Experienced any changes in pain level or No No management Pain Scale: 0-10 Numeric Is Patient Pain Free? Yes Yes - Nurse 1 - General Ulcer Measurement Start: 03/15/23 09:23 Freq: Status: Active Protocol: Activity Type Activity Date Activity User E-sign Co-sign Detail Recorded Client Recorded Date Recorded By Document 03/15/23 09:26 DL [id number] 03/15/23 09:37 DL Document 03/22/23 10:37 MARCIAL [id number] 03/22/23 10:38 RB 03/15/23 03/22/23 09:26 10:37 Wound Center Nurse 1 2. R forearm -Current Size (cm) - Length 0 -Current Size (cm) - Width 0 -Current Size (cm) - Depth 0 -Total Square Cm 0 -Photo Taken Yes -Exudate Amt None Present -Wound Margin Indistinct, Non -Visible -Granulation Amt Large (67-100%) -Granulation Quality [place] -Necrosis Amt None Present (0 %) -Structure Exposed N/A -Texture (Elif-wound Skin Appearance) Scarring -Moisture (Elif-wound Skin Appearance) No Abnormality -Color (Elif-wound Skin Appearance) No Abnormality -Temperature (Elif-wound Skin No Abnormality Appearance) (Pt Warm) -Foul Odor after Cleansing No #1- R LAT LE (P/O BASAL CELL CA) -Combined with other wound No -Current Size (cm) - Length 2.5 2.6 -Current Size (cm) - Width 1.8 2 -Current Size (cm) - Depth 0.1 0.1 -Total Square Cm 4.50 5.2 -Photo Taken Yes -Tunneling No -Undermining/Tunneling No -Circular Undermining No -Exudate Amt Medium Medium -Exudate Type Serosanguineous Serosanguineous -Wound Margin Distinct, Distinct, Outline Outline Attached Attached -Granulation Amt Medium (34-66%) Medium (34-66%) -Granulation Quality Red [place] -Slough/Fibrin Yes -Necrosis Amt Medium (34-66%) Medium (34-66%) -Necrotic Tissue Type Adherent Slough Adherent Slough -Structure Exposed N/A N/A -Texture (Elif-wound Skin Appearance) Scarring Assessed -Moisture (Elif-wound Skin Appearance) No Abnormality Assessed -Color (Elif-wound Skin Appearance) Hemosiderin Assessed Staining -Temperature (Elif-wound Skin No Abnormality Appearance) (Pt Warm) -Tenderness on Palpation (Elif-wound No No Skin Appearance) -Ulcer Cleansing Soap and Water Wound Cleanser -Foul Odor after Cleansing No No -Anesthetic Used 5% Lidocaine 5% Lidocaine Gel Gel Right Calf (cm) 31.8 Right Ankle (cm) 22.6 WC - Nurse 2 - General Ulcer CM Notes Start: 03/15/23 09:23 Freq: Status: Active Protocol: Activity Type Activity Date Activity User E-sign Co-sign Detail Recorded Client Recorded Date Recorded By Document 03/15/23 09:55 MW [id number] 03/15/23 10:02 MW Document 03/22/23 10:59 MW [id number] 03/22/23 11:04 MW 03/15/23 03/22/23 09:55 10:59 Wound Center Nurse 2 2. R forearm -Time 09:59 -Correct Patient Yes -Correct Side, Site, Position Yes -Correct Procedure Yes -Procedure Performed No -Post Debridement (cm) - Length 0 -Post Debridement (cm) - Width 0 -Post Debridement (cm) - Depth 0 -Total Square (Post) (cm) 0 -Wound/Ulcer Outcome Healed- Epithelialized #1- R LAT LE (P/O BASAL CELL CA) -Time 09:59 10:59 -Correct Patient Yes Yes -Correct Side, Site, Position Yes Yes -Correct Procedure Yes Yes -Procedure Performed Yes Yes -Type of Procedure Debridement Debridement -Clinical Debridement Subcutaneous Subcutaneous -Tissue Removed Subcutaneous Subcutaneous -Post Debridement (cm) - Length 2.5 1.9 -Post Debridement (cm) - Width 2.0 1.3 -Post Debridement (cm) - Depth 0.1 0.1 -Total Square (Post) (cm) 5.00 2.47 -Area of Debridement (cm) - Length 2.5 1.9 -Area of Debridement (cm) - Width 2.0 1.3 -Total Square (Area) (cm) 5.00 2.47 -Tunneling No No -Undermining/Tunneling No No -Circular Undermining No No -Wound/Ulcer Outcome Not Healed Not Healed -Ulcer Cleansing Rinsed/ Rinsed/ Irrigated with Irrigated with Saline Saline -Foul Odor after Cleansing No No -Bioengineered Tissue Yes Yes -Type of Bioengineered Tissue Epifix Mesh Epifix -Expiration Date 12/04/27 11/03/27 -Product Lot Number [id number] -Percent Used 100 100 -Lot number of Saline Used [id number] -Bleeding Controlled with Pressure Pressure -Treatment Response Procedure Procedure Tolerated Well Tolerated Well -Offloading No No -Debridement - Subq, 1st 20sq cm No No -Apply Skin Sub - 1st 25 sq cm - Legs 1 1 -Epifix (per sq cm) 4 -Epifix Mesh (per sq cm) 11 Pain Scale: 0-10 Numeric Is Patient Pain Free? Yes Yes WC - Nurse 3 - General Ulcer D/C NN Start: 03/15/23 09:23 Freq: Status: Active Protocol: Activity Type Activity Date Activity User E-sign Co-sign Detail Recorded Client Recorded Date Recorded By Document 03/15/23 10:02 MW [id number] 03/15/23 10:02 MW Edit Result 03/15/23 10:02 MW (1) [id number] 03/15/23 10:03 MW Edit Result 03/15/23 10:02 MW (2) [id number] 03/15/23 10:04 MW Document 03/22/23 11:16 RB [id number] 03/22/23 11:17 RB (1) Right - Compression Wrap Antonio Wrap => - Tubular Bandage => Single Layer - Size of Tubigrip Used => Size E - Size E ($) => 1 (2) Right - Size of Tubigrip Used Size E => Size D - Size D ($) => 1 - Size E ($) 1 => 03/15/23 03/22/23 10:02 11:16 Wound Care Center Nurse 3 #1- R LAT LE (P/O BASAL CELL CA) -Ulcer Cleansing Not Cleansed -Other Dressing abd pad/ antonio -Primary Dressing Covered/Secured with Dry Gauze -Other Covering abd Right -Lotion applied to leg before No compression wrap -Tubular Bandage Single Layer -Size of Tubigrip Used Size D -Size D ($) 1 -Other antonio Treatment Response Procedure Procedure Tolerated Well Tolerated Well Pain Scale: 0-10 Numeric Is Patient Pain Free? Yes Yes Teaching: Wound Center Dressing Your Wound -Person Taught Patient -Teaching Method Discussion -Response to teaching Verbalize understanding WC - Visit Discharge Discharge Condition Stable Stable Ambulatory Status Ambulatory Ambulatory Transportation Private Auto Private Auto Accompanied by Medication Reconcilliation completed & No No provided to patient/care provider Clinical Summary of Care Provided Yes Yes Assessment/Plan Assessment/Plan (1) Nonhealing nonsurgical wound: CODE(S): T14.8XXA - Other injury of unspecified body region, initial encounter PLAN: Resolved forearm skin tear open to air (2) Cellulitis: CODE(S): L03.90 - Cellulitis, unspecified QUALIFIERS: Site of cellulitis: extremity Site of cellulitis of extremity: upper extremity Laterality: right Qualified Code(s): L03.113 - Cellulitis of right upper limb (3) Ulcer of right leg: CODE(S): L97.919 - Non-pressure chronic ulcer of unspecified part of rightlower leg with unspecified severity QUALIFIERS: Non-pressure ulcer stage: with fat layer exposed Qualified Code(s): L97.912 - Non-pressure chronic ulcer of unspecified part of right lower leg with fat layer exposed PLAN: EpiFix #5 applied to the leg with wound veil and Steri-Strips then a dry gauze dressing and Zehra. Follow-up in 1 week (4) Varicose veins of both lower extremities: CODE(S): I83.93 - Asymptomatic varicose veins of bilateral lower extremities QUALIFIERS: Varicose vein complication: asymptomatic Qualified Code(s): I83.93 - Asymptomatic varicose veins of bilateral lower extremities (5) Edema of both lower extremities: CODE(S): R60.0 - Localized edema (6) Non-pressure ulcer of right lower extremity: CODE(S): L97.919 - Non-pressure chronic ulcer of unspecified part of rightlower leg with unspecified severity QUALIFIERS: Non-pressure ulcer stage: with fat layer exposed Qualified Code(s): L97.912 - Non-pressure chronic ulcer of unspecified part of right lower leg with fat layer exposed 03/22/23 1156 <Electronically signed by Mariela Martines NP CASTING REPAIRER-C> Cosigner Signature (if applicable): CC: ~ Signed [facility] Work Phone: 1(131) 908-195107-12-2023 Progress note Author Mariela Martines [facility] March 15, 2023 12:30pm Note Date/Time March 15, 2023 12:3 0pm [facility] [address] [place] [id number] Progress Note - Wound Care 03/15/23 1225 MR#: [id number] Acct: [id number] Name: MARY ALICE GA Rep #:[id number] : 1950 72 From: Mariela Martines NP 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 Khanh Rodriguez MD Status:R EG RCR Location: History of Present Illness Date of Service: 03/15/23 Chief Complaint: Follow-up on her right lower leg lateral area wound nonhealing since at least November. History of Wound: 72-year-old white female in [place] where she is living duringthe winter. She had a growth removed from her right lateral lower leg. She is still not sure if it is cancer or not. Was removed only by her regular doctor not a Derm doctor. Still open to the subcutaneous skin. She saw her own doctor up here and she was referred to us from her and put on cephalexin. Recently she was taken off her Lasix and has terrible edema of her lower extremities and abdomen. Patient states she has gained 9 pounds Progress of Wound: The right forearm partial of skin avulsion laceration from the dog scratch is healed. Right lateral lower leg is looking very good she is had her third EpiFix on it and have not seen her for 2 weeks and looks very good superficial. We will apply number for EpiFix she should be healed in the next week or 2 doing very well skin surrounding looks like it is healing it is all flat with no sign of infection. Subjective Subjective Patient happy with outcomes Objective Data Objective Data Again no sign of infection we will continue with EpiFix #4 applied today with wound veil and dry dressing over top she needs to continue compression stockingsand not Antonio wrap the area as she is seeing a lot of more edema because she is getting like a tourniquet effect. Vital Signs: Vital Signs Temp Pulse Resp BP 97.4 F L 59 L 20 H 123/52 H 03/15/23 09:26 03/15/23 09:26 03/15/23 09:26 03/15/23 09:26 Weight: 137 lb Body Mass Index (BMI) 23.5 Physical Exam Const oriented x3 General Appearance: cooperative Exam Limitations: no limitations HEENT normocephalic Head and Scalp: normal to inspection Face and Sinus: normal facial exam Nose: external nose normal External Ear: external ears normal Eyes PERRL General Eye: normal appearance of both eyes Neck full ROM General: normal visual inspection Resp normal respiratory effort Effort and Inspection: able to speak in complete sentences Auscultation: clear to auscultation bilaterally Cardio regular rate and regular rhythm Palpation: normal PMI Rate: regular rate Rhythm: regular rhythm GI Auscultation: normoactive bowel sounds Palpation: soft and no hepatosplenomegaly Extremity Extremity Narrative: Edema from at least knees down to even toes like little sausages. Discolorationof her lower legs from probably peripheral vascular disease. She does have obvious varicosities. General Extremity: normal exam except as noted Skin General Skin Exam: erythema and venous stasis Wounds: wounds noted Wound Narrative: Rather large size of a $0.50 piece full-thickness open wound on the right lateral leg. We will try to get studies from the other doctor. Neuro oriented x3 Psych Appearance: grossly normal Speech: normal speech Thought Content: normal thought content Judgement: judgement good Debridement Note Debridement Note Wound debrided: Right lateral lower leg nonhealing surgical wound wound from cancer removal Type of Debridement: Excisional debridement Anesthesia Used: 5% Lidocaine Gel Depth: Down to and including healthy tissue and in the subcutaneous layer Percentage of wound debrided: 100 Instrument Used: 5mm curette Tissue Removed: Devitalized tissue Severity: Limited To Skin Breakdown Amount of bleeding with debridement: Mild Bleeding Controlled with: Compression and gauze Patient tolerated procedure: Patient tolerated procedure well Post-Debridement Measurements and Additional Note: Post-Debridement Measurements/Treatment - Nurse 1 - General Ulcer Assessment Start: 03/15/23 09:23 Freq: Status: Active Protocol: WC.LOWLAURIET Activity Type Activity Date Activity User E-sign Co-sign Detail Recorded Client Recorded Date Recorded By Document 03/15/23 09:26 DL [id number] 03/15/23 09:37 DL 03/15/23 09:26 - Today's Visit Information Type of service Follow-up Visit (Physician/REAL ESTATE LEGAL ASSISTANT ) Arrival Mode Ambulatory,Cane Transfer Assistance None Patient Identification Verified (Name & Yes ) Patient Requires Transmission-Based No Precautions Height and Weight Body Mass Index (BMI) 23.5 BMI Classification Normal Vital Signs Temperature (97.8 F-99.1 F) 97.4 F L Temperature Source Temporal Pulse Rate (60-100) 59 L Respiratory Rate (12-18) 20 H Respiratory rate source Observation Blood Pressure (90/60-120/80) 123/52 H Blood Pressure Mean (mm Hg) 75 Source Monitor History Since Last Visit- (Skip if this is Patient's initial visit) Have you changed medications since your No last visit? Any new allergies or adverse reactions No Had a fall/change in ADL's that may No increase risk of falls Signs or symptoms of abuse and/or No neglect since last visit Have you been in the hospital since your No last visit? Has dressing in place as prescribed Yes Has compression in place as prescribed Yes Has offloadiing in place as prescribed No Experienced any changes in pain level or No management Pain Scale: 0-10 Numeric Is Patient Pain Free? Yes WC - Nurse 1 - General Ulcer Measurement Start: 03/15/23 09:23 Freq: Status: Active Protocol: Activity Type Activity Date Activity User E-sign Co-sign Detail Recorded Client Recorded Date Recorded By Document 03/15/23 09:26 DL [id number] 03/15/23 09:37 DL 03/15/23 09:26 Wound Center Nurse 1 2. R forearm -Current Size (cm) - Length 0 -Current Size (cm) - Width 0 -Current Size (cm) - Depth 0 -Total Square Cm 0 -Photo Taken Yes -Exudate Amt None Present -Wound Margin Indistinct, Non -Visible -Granulation Amt Large (67-100%) -Granulation Quality [place] -Necrosis Amt None Present (0 %) -Structure Exposed N/A -Texture (Elif-wound Skin Appearance) Scarring -Moisture (Elif-wound Skin Appearance) No Abnormality -Color (Elif-wound Skin Appearance) No Abnormality -Temperature (Elif-wound Skin No Abnormality Appearance) (Pt Warm) -Foul Odor after Cleansing No #1- R LAT LE (P/O BASAL CELL CA) -Current Size (cm) - Length 2.5 -Current Size (cm) - Width 1.8 -Current Size (cm) - Depth 0.1 -Total Square Cm 4.50 -Photo Taken Yes -Exudate Amt Medium -Exudate Type Serosanguineous -Wound Margin Distinct, Outline Attached -Granulation Amt Medium (34-66%) -Granulation Quality [place] -Necrosis Amt Medium (34-66%) -Necrotic Tissue Type Adherent Slough -Structure Exposed N/A -Texture (Elif-wound Skin Appearance) Scarring -Moisture (Elif-wound Skin Appearance) No Abnormality -Color (Elif-wound Skin Appearance) Hemosiderin Staining -Tenderness on Palpation (Elif-wound No Skin Appearance) -Ulcer Cleansing Soap and Water -Foul Odor after Cleansing No -Anesthetic Used 5% Lidocaine Gel Right Calf (cm) 31.8 Right Ankle (cm) 22.6 WC - Nurse 2 - General Ulcer CM Notes Start: 03/15/23 09:23 Freq: Status: Active Protocol: Activity Type Activity Date Activity User E-sign Co-sign Detail Recorded Client Recorded Date Recorded By Document 03/15/23 09:55 MW [id number] 03/15/23 10:02 MW 03/15/23 09:55 Wound Center Nurse 2 2. R forearm -Time 09:59 -Correct Patient Yes -Correct Side, Site, Position Yes -Correct Procedure Yes -Procedure Performed No -Post Debridement (cm) - Length 0 -Post Debridement (cm) - Width 0 -Post Debridement (cm) - Depth 0 -Total Square (Post) (cm) 0 -Wound/Ulcer Outcome Healed- Epithelialized #1- R LAT LE (P/O BASAL CELL CA) -Time 09:59 -Correct Patient Yes -Correct Side, Site, Position Yes -Correct Procedure Yes -Procedure Performed Yes -Type of Procedure Debridement -Clinical Debridement Subcutaneous -Tissue Removed Subcutaneous -Post Debridement (cm) - Length 2.5 -Post Debridement (cm) - Width 2.0 -Post Debridement (cm) - Depth 0.1 -Total Square (Post) (cm) 5.00 -Area of Debridement (cm) - Length 2.5 -Area of Debridement (cm) - Width 2.0 -Total Square (Area) (cm) 5.00 -Tunneling No -Undermining/Tunneling No -Circular Undermining No -Wound/Ulcer Outcome Not Healed -Ulcer Cleansing Rinsed/ Irrigated with Saline -Foul Odor after Cleansing No -Bioengineered Tissue Yes -Type of Bioengineered Tissue Epifix Mesh -Expiration Date 12/04/27 -Product Lot Number [id number] -Percent Used 100 -Lot number of Saline Used [id number] -Bleeding Controlled with Pressure -Treatment Response Procedure Tolerated Well -Offloading No -Debridement - Subq, 1st 20sq cm No -Apply Skin Sub - 1st 25 sq cm - Legs 1 -Epifix Mesh (per sq cm) 11 Pain Scale: 0-10 Numeric Is Patient Pain Free? Yes WC - Nurse 3 - General Ulcer D/C NN Start: 03/15/23 09:23 Freq: Status: Active Protocol: Activity Type Activity Date Activity User E-sign Co-sign Detail Recorded Client Recorded Date Recorded By Document 03/15/23 10:02 MW [id number] 03/15/23 10:02 MW Edit Result 03/15/23 10:02 MW (1) [id number] 03/15/23 10:03 MW Edit Result 03/15/23 10:02 MW (2) [id number] 03/15/23 10:04 MW (1) Right - Compression Wrap Antonio Wrap => - Tubular Bandage => Single Layer - Size of Tubigrip Used => Size E - Size E ($) => 1 (2) Right - Size of Tubigrip Used Size E => Size D - Size D ($) => 1 - Size E ($) 1 => 03/15/23 10:02 Wound Care Center Nurse 3 #1- R LAT LE (P/O BASAL CELL CA) -Ulcer Cleansing Not Cleansed -Other Covering abd Right -Lotion applied to leg before No compression wrap -Tubular Bandage Single Layer -Size of Tubigrip Used Size D -Size D ($) 1 Treatment Response Procedure Tolerated Well Pain Scale: 0-10 Numeric Is Patient Pain Free? Yes Teaching: Wound Center Dressing Your Wound -Person Taught Patient -Teaching Method Discussion -Response to teaching Verbalize understanding WC - Visit Discharge Discharge Condition Stable Ambulatory Status Ambulatory Transportation Private Auto Accompanied by Medication Reconcilliation completed & No provided to patient/care provider Clinical Summary of Care Provided Yes Assessment/Plan Assessment/Plan (1) Nonhealing nonsurgical wound: CODE(S): T14.8XXA - Other injury of unspecified body region, initial encounter PLAN: Resolved forearm skin tear open to air (2) Cellulitis: CODE(S): L03.90 - Cellulitis, unspecified QUALIFIERS: Site of cellulitis: extremity Site of cellulitis of extremity: upper extremity Laterality: right Qualified Code(s): L03.113 - Cellulitis of right upper limb (3) Ulcer of right leg: CODE(S): L97.919 - Non-pressure chronic ulcer of unspecified part of rightlower leg with unspecified severity QUALIFIERS: Non-pressure ulcer stage: with fat layer exposed Qualified Code(s): L97.912 - Non-pressure chronic ulcer of unspecified part of right lower leg with fat layer exposed PLAN: EpiFix #4 applied to the leg with wound veil and Steri-Strips then a dry gauze dressing and Zehra. single-layer Tubigrip to the bilateral lower legs Follow-up in 1 week (4) Varicose veins of both lower extremities: CODE(S): I83.93 - Asymptomatic varicose veins of bilateral lower extremities QUALIFIERS: Varicose vein complication: asymptomatic Qualified Code(s): I83.93 - Asymptomatic varicose veins of bilateral lower extremities (5) Edema of both lower extremities: CODE(S): R60.0 - Localized edema (6) Non-pressure ulcer of right lower extremity: CODE(S): L97.919 - Non-pressure chronic ulcer of unspecified part of rightlower leg with unspecified severity QUALIFIERS: Non-pressure ulcer stage: with fat layer exposed Qualified Code(s): L97.912 - Non-pressure chronic ulcer of unspecified part of right lower leg with fat layer exposed 03/15/23 1230 <Electronically signed by Mariela Martines NP CASTING REPAIRER-C> Cosigner Signature (if applicable): CC: ~ Signed [facility] Work Phone: 1(870) 320-313806-28-2023 Progress note Author Mariela Martines [facility] March 01, 2023 11:32am Note Date/Time March 01, 2023 11:3 2am [facility] [address] [place] [id number] Progress Note - Wound Care 03/01/23 1124 MR#: [id number] Acct: [id number] Name: MARY ALICE GA Rep #:[id number] : 1950 72 From: Mariela Martines NP 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 Khanh Rodriguez MD Status:R EG RCR Location: History of Present Illness Date of Service: 03/01/23 Chief Complaint: Follow-up on her right lower leg lateral area wound nonhealing since at least November. History of Wound: 72-year-old white female in [place] where she is living duringthe winter. She had a growth removed from her right lateral lower leg. She is still not sure if it is cancer or not. Was removed only by her regular doctor not a Derm doctor. Still open to the subcutaneous skin. She saw her own doctor up here and she was referred to us from her and put on cephalexin. Recently she was taken off her Lasix and has terrible edema of her lower extremities and abdomen. Patient states she has gained 9 pounds Progress of Wound: All her measurements are smaller in depth will continue the EpiFix today with #4. Tolerated debridement better this week edges are flat and well approximated. New area on her right forearm from her daughter's dog scratched her. She has a avulsion laceration to the right forearm. Growing staph patient will start antibiotic starting today. Measuring smaller using the Aquacel but she complains of a lot of pain. Subjective Subjective Patient just complains of a lot of pain in her arm but her leg does not bother her anymore also will be in for 2 weeks because going down to her cabin in [facility] for 2 weeks. Objective Data Objective Data Same as above improvements on both areas we will start the antibiotic she shouldsee a difference. Vital Signs: Vital Signs Temp Pulse Resp BP O2 Del Method 97 F L 65 16 109/65 Room Air 03/01/23 09:39 03/01/23 09:39 03/01/23 09:39 03/01/23 09:39 03/01/23 09:39 Oxygen Delivery Method Room Air Weight: 137 lb Body Mass Index (BMI) 23.5 Lab / Micro Data Micro: Microbiology 02/23/23 10:25 Wound Abcess - Right Forearm Gram Stain - Final 02/23/23 10:25 Wound Abcess - Right Forearm Wound Culture - Final Staphylococcus epidermidis 02/23/23 10:25 Wound Abcess - Right Forearm Anaerobic Culture - Final No anaerobic bacteria isolated. Physical Exam Const oriented x3 General Appearance: cooperative Exam Limitations: no limitations HEENT normocephalic Head and Scalp: normal to inspection Face and Sinus: normal facial exam Nose: external nose normal External Ear: external ears normal Eyes PERRL General Eye: normal appearance of both eyes Neck full ROM General: normal visual inspection Resp normal respiratory effort Effort and Inspection: able to speak in complete sentences Auscultation: clear to auscultation bilaterally Cardio regular rate and regular rhythm Palpation: normal PMI Rate: regular rate Rhythm: regular rhythm GI Auscultation: normoactive bowel sounds Palpation: soft and no hepatosplenomegaly Extremity Extremity Narrative: Edema from at least knees down to even toes like little sausages. Discolorationof her lower legs from probably peripheral vascular disease. She does have obvious varicosities. General Extremity: normal exam except as noted Skin General Skin Exam: erythema and venous stasis Wounds: wounds noted Wound Narrative: Rather large size of a $0.50 piece full-thickness open wound on the right lateral leg. We will try to get studies from the other doctor. Neuro oriented x3 Psych Appearance: grossly normal Speech: normal speech Thought Content: normal thought content Judgement: judgement good Debridement Note Debridement Note Wound debrided: Right lateral lower leg traumatic wound Type of Debridement: Excisional debridement Anesthesia Used: 5% Lidocaine Gel Depth: Down to and including healthy tissue Percentage of wound debrided: 100 Instrument Used: 5mm curette Tissue Removed: Fibrin Severity: Limited To Skin Breakdown Amount of bleeding with debridement: Mild Bleeding Controlled with: Compression and gauze Patient tolerated procedure: Patient tolerated procedure well Post-Debridement Measurements and Additional Note: Post-Debridement Measurements/Treatment - Nurse 1 - General Ulcer Assessment Start: 02/08/23 11:06 Freq: Status: Active Protocol: HERMILA.LOWLAURIET Activity Type Activity Date Activity User E-sign Co-sign Detail Recorded Client Recorded Date Recorded By Document 02/08/23 11:07 [facility] [id number] 02/08/23 11:13 [facility] Document 02/15/23 09:30 RB [id number] 02/15/23 09:34 RB Document 02/22/23 09:56 RB [id number] 02/22/23 09:59 RB Document 03/01/23 09:39 [facility] [id number] 03/01/23 09:52 [facility] 02/08/23 02/15/23 02/22/23 11:07 09:30 09:56 - Today's Visit Information Type of service Follow-up Visit Follow-up Visit Follow-up Visit (Physician/REAL ESTATE LEGAL ASSISTANT (Physician/REAL ESTATE LEGAL ASSISTANT (Physician/REAL ESTATE LEGAL ASSISTANT ) ) ) Arrival Mode Ambulatory Ambulatory Ambulatory Transfer Assistance None None None Patient Identification Verified (Name & Yes Yes Yes ) Patient Requires Transmission-Based No No No Precautions Height and Weight Body Mass Index (BMI) 23.5 23.5 23.5 BMI Classification Normal Normal Normal Vital Signs Temperature (97.8 F-99.1 F) 97.9 F 97.4 F L 97 F L Temperature Source Temporal Temporal Temporal Pulse Rate (60-100) 66 68 64 Pulse Location Monitor Monitor Monitor Respiratory Rate (12-18) 16 18 18 Respiratory rate source Observation Observation Observation Oxygen Delivery Method Room Air Blood Pressure (90/60-120/80) 119/49 L 135/52 H 100/64 Blood Pressure Mean (mm Hg) 72 79 76 Source Monitor Monitor Monitor Position Sitting Semi-Fowlers Semi-Fowlers Blood Pressure Location Left Arm Left Arm Left Arm History Since Last Visit- (Skip if this is Patient's initial visit) Have you changed medications since your No No No last visit? Any new allergies or adverse reactions No No No Had a fall/change in ADL's that may No No No increase risk of falls Signs or symptoms of abuse and/or No No No neglect since last visit Have you been in the hospital since your No No No last visit? Has dressing in place as prescribed Yes Yes Yes Has compression in place as prescribed N/A Yes No Has offloadiing in place as prescribed N/A No No Experienced any changes in pain level or No No No management Left Footwear Regular Shoe Right Footwear Regular Shoe Other Footwear just wearing an antonio to secure Pain Scale: 0-10 Numeric Is Patient Pain Free? Yes Yes Yes 03/01/23 09:39 - Today's Visit Information Type of service Follow-up Visit (Physician/REAL ESTATE LEGAL ASSISTANT ) Arrival Mode Ambulatory,Cane Transfer Assistance None Patient Identification Verified (Name & Yes ) Patient Requires Transmission-Based No Precautions Height and Weight Body Mass Index (BMI) 23.5 BMI Classification Normal Vital Signs Temperature (97.8 F-99.1 F) 97 F L Temperature Source Temporal Pulse Rate (60-100) 65 Pulse Location Monitor Respiratory Rate (12-18) 16 Respiratory rate source Observation Oxygen Delivery Method Room Air Blood Pressure (90/60-120/80) 109/65 Blood Pressure Mean (mm Hg) 79 Source Monitor Position Sitting Blood Pressure Location Right Arm History Since Last Visit- (Skip if this is Patient's initial visit) Have you changed medications since your No last visit? Any new allergies or adverse reactions No Had a fall/change in ADL's that may No increase risk of falls Signs or symptoms of abuse and/or No neglect since last visit Have you been in the hospital since your No last visit? Has dressing in place as prescribed Yes Has compression in place as prescribed Yes Has offloadiing in place as prescribed N/A Experienced any changes in pain level or No management Left Footwear Regular Shoe Right Footwear Regular Shoe Other Footwear Pain Scale: 0-10 Numeric Is Patient Pain Free? Yes WC - Nurse 1 - General Ulcer Measurement Start: 02/08/23 11:06 Freq: Status: Active Protocol: Activity Type Activity Date Activity User E-sign Co-sign Detail Recorded Client Recorded Date Recorded By Document 02/08/23 11:07 [facility] [id number] 02/08/23 11:13 [facility] Document 02/15/23 09:30 RB [id number] 02/15/23 09:34 RB Document 02/22/23 09:56 RB [id number] 02/22/23 09:59 RB Document 03/01/23 09:39 [facility] [id number] 03/01/23 09:52 [facility] 02/08/23 02/15/23 02/22/23 11:07 09:30 09:56 Wound Center Nurse 1 2. R forearm -Combined with other wound No -Current Size (cm) - Length 3.5 -Current Size (cm) - Width 4.2 -Current Size (cm) - Depth 0.1 -Total Square Cm 14.70 -Date of Last Picture (Recall this field) -Photo Taken Yes -Epithelialization -Tunneling No -Undermining/Tunneling No -Circular Undermining No -Exudate Amt Medium -Exudate Type Serosanguineous -Wound Margin Distinct, Outline Attached -Granulation Amt Medium (34-66%) -Granulation Quality [place] -Slough/Fibrin Yes -Necrosis Amt Medium (34-66%) -Necrotic Tissue Type Adherent Slough -Structure Exposed N/A -Texture (Elif-wound Skin Appearance) Assessed -Moisture (Elif-wound Skin Appearance) Assessed -Color (Elif-wound Skin Appearance) Assessed -Temperature (Elif-wound Skin No Abnormality Appearance) (Pt Warm) -Tenderness on Palpation (Elif-wound No Skin Appearance) -Ulcer Cleansing Wound Cleanser -Foul Odor after Cleansing No -Anesthetic Used 5% Lidocaine Gel #1- R LAT LE (P/O BASAL CELL CA) -Combined with other wound No No No -Current Size (cm) - Length 2.8 3.1 2.9 -Current Size (cm) - Width 2.4 2.6 2.3 -Current Size (cm) - Depth 0.1 0.1 0.1 -Total Square Cm 6.72 8.06 6.67 -Date of Last Picture (Recall this 02/08/23 field) -Photo Taken Yes Yes -Epithelialization Small 1-33% -Tunneling No No No -Undermining/Tunneling No No No -Circular Undermining No No No -Exudate Amt Medium Medium Medium -Exudate Type Serosanguineous Serosanguineous Serosanguineous -Wound Margin Distinct, Distinct, Distinct, Outline Outline Outline Attached Attached Attached -Granulation Amt Small (1-33%) Medium (34-66%) Medium (34-66%) -Granulation Quality [place] -Slough/Fibrin Yes Yes Yes -Necrosis Amt Large (67-100%) Medium (34-66%) Medium (34-66%) -Necrotic Tissue Type Adherent Slough Adherent Slough Adherent Slough -Structure Exposed N/A N/A -Texture (Elif-wound Skin Appearance) Assessed, Assessed Assessed Scarring -Moisture (Elif-wound Skin Appearance) Assessed,Dry/ Assessed Assessed Scaly -Color (Elif-wound Skin Appearance) Assessed Assessed Assessed -Temperature (Elif-wound Skin No Abnormality No Abnormality No Abnormality Appearance) (Pt Warm) (Pt Warm) (Pt Warm) -Tenderness on Palpation (Elif-wound No No No Skin Appearance) -Ulcer Cleansing Rinsed/ Wound Cleanser Wound Cleanser Irrigated with Saline -Foul Odor after Cleansing No No -Anesthetic Used 5% Lidocaine 5% Lidocaine 5% Lidocaine Gel Gel Gel Lower Limb Edema Present Yes Right Calf (cm) 34 Right Ankle (cm) 23.6 03/01/23 09:39 Wound Center Nurse 1 2. R forearm -Combined with other wound No -Current Size (cm) - Length 3 -Current Size (cm) - Width 4 -Current Size (cm) - Depth 0.1 -Total Square Cm 12 -Date of Last Picture (Recall this 03/01/23 field) -Photo Taken Yes -Epithelialization None Present -Tunneling No -Undermining/Tunneling No -Circular Undermining No -Exudate Amt Medium -Exudate Type Sanguineous -Wound Margin Flat & Intact -Granulation Amt Large (67-100%) -Granulation Quality [place] -Slough/Fibrin Yes -Necrosis Amt Small (1-33%) -Necrotic Tissue Type Adherent Slough -Structure Exposed -Texture (Elif-wound Skin Appearance) Assessed, Scarring -Moisture (Elif-wound Skin Appearance) Assessed -Color (Elif-wound Skin Appearance) Assessed -Temperature (Elif-wound Skin No Abnormality Appearance) (Pt Warm) -Tenderness on Palpation (Elif-wound No Skin Appearance) -Ulcer Cleansing Rinsed/ Irrigated with Saline -Foul Odor after Cleansing No -Anesthetic Used 5% Lidocaine Gel #1- R LAT LE (P/O BASAL CELL CA) -Combined with other wound No -Current Size (cm) - Length 2.6 -Current Size (cm) - Width 2.2 -Current Size (cm) - Depth 0.1 -Total Square Cm 5.72 -Date of Last Picture (Recall this 03/01/23 field) -Photo Taken Yes -Epithelialization -Tunneling No -Undermining/Tunneling No -Circular Undermining No -Exudate Amt Medium -Exudate Type Serosanguineous -Wound Margin Distinct, Outline Attached -Granulation Amt Small (1-33%) -Granulation Quality Red -Slough/Fibrin Yes -Necrosis Amt Large (67-100%) -Necrotic Tissue Type Adherent Slough -Structure Exposed -Texture (Elif-wound Skin Appearance) Assessed, Scarring -Moisture (Elif-wound Skin Appearance) Assessed -Color (Elif-wound Skin Appearance) Assessed, Hemosiderin Staining -Temperature (Elif-wound Skin No Abnormality Appearance) (Pt Warm) -Tenderness on Palpation (Elif-wound No Skin Appearance) -Ulcer Cleansing Soap and Water -Foul Odor after Cleansing No -Anesthetic Used 4% Lidocaine Solution Lower Limb Edema Present Yes Right Calf (cm) 35 Right Ankle (cm) 23.1 WC - Nurse 2 - General Ulcer CM Notes Start: 02/08/23 11:06 Freq: Status: Active Protocol: Activity Type Activity Date Activity User E-sign Co-sign Detail Recorded Client Recorded Date Recorded By Document 02/08/23 11:20 MW Desktop 02/08/23 11:30 MW Document 02/15/23 09:37 MW [id number] 02/15/23 09:45 MW Document 02/22/23 10:12 MW [id number] 02/22/23 10:24 MW 02/08/23 02/15/23 02/22/23 11:20 09:37 10:12 Wound Center Nurse 2 2. R forearm -Time 10:12 -Correct Patient Yes -Correct Side, Site, Position Yes -Correct Procedure Yes -Procedure Performed Yes -Type of Procedure Debridement -Clinical Debridement Subcutaneous -Tissue Removed Subcutaneous -Post Debridement (cm) - Length 3.5 -Post Debridement (cm) - Width 4.6 -Post Debridement (cm) - Depth 0.1 -Total Square (Post) (cm) 16.10 -Area of Debridement (cm) - Length 3.5 -Area of Debridement (cm) - Width 4.6 -Total Square (Area) (cm) 16.10 -Tunneling No -Undermining/Tunneling No -Circular Undermining No -Wound/Ulcer Outcome Not Healed -Ulcer Cleansing Rinsed/ Irrigated with Saline -Foul Odor after Cleansing No -Bioengineered Tissue No -Bleeding Controlled with Pressure -Treatment Response Procedure Tolerated Well -Offloading No -Debridement - Subq, 1st 20sq cm Yes #1- R LAT LE (P/O BASAL CELL CA) -Time 11:20 09:38 10:14 -Correct Patient Yes Yes Yes -Correct Side, Site, Position Yes Yes Yes -Correct Procedure Yes Yes Yes -Procedure Performed Yes Yes Yes -Type of Procedure Debridement Debridement Debridement -Clinical Debridement Subcutaneous Subcutaneous Subcutaneous -Tissue Removed Subcutaneous Subcutaneous Subcutaneous -Post Debridement (cm) - Length 2.5 2.8 2.5 -Post Debridement (cm) - Width 2.3 2.3 1.9 -Post Debridement (cm) - Depth 0.1 0.1 0.1 -Total Square (Post) (cm) 5.75 6.44 4.75 -Area of Debridement (cm) - Length 2.5 2.8 2.5 -Area of Debridement (cm) - Width 2.3 2.3 1.9 -Total Square (Area) (cm) 5.75 6.44 4.75 -Tunneling No No No -Undermining/Tunneling No No No -Circular Undermining No No No -Wound/Ulcer Outcome Not Healed Not Healed Not Healed -Ulcer Cleansing Rinsed/ Rinsed/ Rinsed/ Irrigated with Irrigated with Irrigated with Saline Saline Saline -Foul Odor after Cleansing No No No -Bioengineered Tissue Yes Yes Yes -Type of Bioengineered Tissue Epifix Mesh Epifix Mesh Epifix Mesh -Expiration Date 12/03/25 12/04/27 12/04/27 -Product Lot Number [id number] -Percent Used 100 100 100 -Lot number of Saline Used [id number] -Bleeding Controlled with Pressure Pressure Pressure -Treatment Response Procedure Procedure Procedure Tolerated Well Tolerated Well Tolerated Well -Offloading No No No -Debridement - Subq, 1st 20sq cm No No No -Apply Skin Sub - 1st 25 sq cm - Legs 1 1 1 -Epifix Mesh (per sq cm) 11 11 11 Pain Scale: 0-10 Numeric Is Patient Pain Free? Yes Yes Yes WC - Nurse 3 - General Ulcer D/C NN Start: 02/08/23 11:06 Freq: Status: Active Protocol: Activity Type Activity Date Activity User E-sign Co-sign Detail Recorded Client Recorded Date Recorded By Document 02/08/23 11:30 MW Desktop 02/08/23 11:31 MW Document 02/15/23 09:52 RB [id number] 02/15/23 09:53 RB Document 02/22/23 10:39 MW [id number] 02/22/23 10:40 MW 02/08/23 02/15/23 02/22/23 11:30 09:52 10:39 Wound Care Center Nurse 3 2. R forearm -Ulcer Cleansing Rinsed/ Irrigated with Saline -Foul Odor after Cleansing No -Negative Pressure Wound Therapy N/A -Primary Dressing Applied Aquacel Extra, NonAdherent Contact Layer -Other Covering abd -Aquacel Extra 2 #1- R LAT LE (P/O BASAL CELL CA) -Ulcer Cleansing Not Cleansed Not Cleansed -Foul Odor after Cleansing No -Negative Pressure Wound Therapy N/A -Other Dressing ABD ABD pad secured with partial cut antonio wrap as directed per Ayanna Hunt -Other Covering ANTONIO wrap ABD Right -Lotion applied to leg before No No compression wrap -Compression Wrap Antonio Wrap Antonio Wrap Treatment Response Procedure Procedure Procedure Tolerated Well Tolerated Well Tolerated Well Pain Scale: 0-10 Numeric Is Patient Pain Free? Yes Yes Yes Teaching: Wound Center Dressing Your Wound -Person Taught Patient Patient -Teaching Method Discussion Discussion, Demonstration -Response to teaching Verbalize Verbalize understanding understanding WC - Visit Discharge Discharge Condition Stable Stable Stable Ambulatory Status Ambulatory,Cane Ambulatory,Cane Ambulatory Transportation Private Auto Private Auto Private Auto Accompanied by self self Medication Reconcilliation completed & No No No provided to patient/care provider Clinical Summary of Care Provided Yes Yes Yes Additional Wound Wound debrided: Right forearm avulsion laceration from dog scratch nonhealing nonpressure w Type of Debridement: Excisional debridement Anesthesia Used: 5% Lidocaine Gel Depth: Down to and including healthy tissue and in the subcutaneous layer Percentage of wound debrided: 100 Instrument Used: 5mm curette Tissue Removed: Fibrin Amount of bleeding with debridement: Mild Bleeding Controlled with: Compression and gauze Patient tolerated procedure: Patient tolerated procedure well Assessment/Plan Assessment/Plan (1) Nonhealing nonsurgical wound: CODE(S): T14.8XXA - Other injury of unspecified body region, initial encounter PLAN: Wash area with antibacterial soap and apply the Aquacel extra and gauze wrap every day Take doxycycline twice daily for 14 days (2) Cellulitis: CODE(S): L03.90 - Cellulitis, unspecified QUALIFIERS: Site of cellulitis: extremity Site of cellulitis of extremity: upper extremity Laterality: right Qualified Code(s): L03.113 - Cellulitis of right upper limb (3) Ulcer of right leg: CODE(S): L97.919 - Non-pressure chronic ulcer of unspecified part of rightlower leg with unspecified severity QUALIFIERS: Non-pressure ulcer stage: with fat layer exposed Qualified Code(s): L97.912 - Non-pressure chronic ulcer of unspecified part of right lower leg with fat layer exposed PLAN: EpiFix #4 applied to the leg with wound veil and Steri-Strips then a dry gauze dressing and Zehra. single-layer Tubigrip to the bilateral lower legs Follow-up in 2 week (4) Varicose veins of both lower extremities: CODE(S): I83.93 - Asymptomatic varicose veins of bilateral lower extremities QUALIFIERS: Varicose vein complication: asymptomatic Qualified Code(s): I83.93 - Asymptomatic varicose veins of bilateral lower extremities (5) Edema of both lower extremities: CODE(S): R60.0 - Localized edema (6) Non-pressure ulcer of right lower extremity: CODE(S): L97.919 - Non-pressure chronic ulcer of unspecified part of rightlower leg with unspecified severity QUALIFIERS: Non-pressure ulcer stage: with fat layer exposed Qualified Code(s): L97.912 - Non-pressure chronic ulcer of unspecified part of right lower leg with fat layer exposed 03/01/23 1132 <Electronically signed by Mariela Martines NP CASTING REPAIRER-C> Cosigner Signature (if applicable): CC: ~ Signed [facility] Work Phone: 1(977) 206-438206-21-2023 Progress note Author Mariela Martines [facility] February 22, 2023 11:34am Note Date/Time February 22, 2023 11:3 4am [facility] [address] [place] [id number] Progress Note - Wound Care 02/22/23 1125 MR#: [id number] Acct: [id number] Name: MARY ALICE GA Rep #:[id number] : 1950 72 From: Mariela Martines NP 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 Khanh Rodriguez MD Status:R EG RCR Location: History of Present Illness Date of Service: 02/22/23 Chief Complaint: Follow-up on her right lower leg lateral area wound nonhealing since at least November. History of Wound: 72-year-old white female in [place] is living duringthe winter. She had a growth removed from her right lateral lower leg. She is still not sure if it is cancer or not. Was removed only by her regular doctor not a Derm doctor. Still open to the subcutaneous skin. She saw her own doctor up here and she was referred to us from her and put on cephalexin. Recently she was taken off her Lasix and has terrible edema of her lower extremities and abdomen. Patient states she has gained 9 pounds Progress of Wound: All her measurements are smaller in depth will continue the EpiFix today with #3. Tolerated debridement better this week . New area on her right forearm from her daughter's dog scratched her. She has a avulsion laceration to the right forearm. Surrounding tissue is red swollen we obtained wound cultures Subjective Subjective Patient complains of burning arm pain and soreness been using [id number] antibiotic ointment on it and wrapping Objective Data Objective Data The EpiFix on the right lower leg is much smaller more superficial actually she has beads of new skin coming through which looks good Right forearm we will start with Aquacel extra moistened with a wrap over top. Debrided the skin that never took for the avulsion laceration. Vital Signs: Vital Signs Temp Pulse Resp BP O2 Del Method 97 F L 64 18 100/64 Room Air 02/22/23 09:56 02/22/23 09:56 02/22/23 09:56 02/22/23 09:56 02/08/23 11:07 Oxygen Delivery Method Room Air Weight: 137 lb Body Mass Index (BMI) 23.5 Physical Exam Const oriented x3 General Appearance: cooperative Exam Limitations: no limitations HEENT normocephalic Head and Scalp: normal to inspection Face and Sinus: normal facial exam Nose: external nose normal External Ear: external ears normal Eyes PERRL General Eye: normal appearance of both eyes Neck full ROM General: normal visual inspection Resp normal respiratory effort Effort and Inspection: able to speak in complete sentences Auscultation: clear to auscultation bilaterally Cardio regular rate and regular rhythm Palpation: normal PMI Rate: regular rate Rhythm: regular rhythm GI Auscultation: normoactive bowel sounds Palpation: soft and no hepatosplenomegaly Extremity Extremity Narrative: Edema from at least knees down to even toes like little sausages. Discolorationof her lower legs from probably peripheral vascular disease. She does have obvious varicosities. General Extremity: normal exam except as noted Skin General Skin Exam: erythema and venous stasis Wounds: wounds noted Wound Narrative: Rather large size of a $0.50 piece full-thickness open wound on the right lateral leg. We will try to get studies from the other doctor. Neuro oriented x3 Psych Appearance: grossly normal Speech: normal speech Thought Content: normal thought content Judgement: judgement good Debridement Note Debridement Note Wound debrided: Right lateral lower leg traumatic wound Type of Debridement: Excisional debridement Anesthesia Used: 5% Lidocaine Gel Depth: Down to and including healthy tissue Percentage of wound debrided: 100 Instrument Used: 5mm curette Tissue Removed: Fibrin Severity: Limited To Skin Breakdown Amount of bleeding with debridement: Mild Bleeding Controlled with: Compression and gauze Patient tolerated procedure: Patient tolerated procedure well Post-Debridement Measurements and Additional Note: Post-Debridement Measurements/Treatment - Nurse 1 - General Ulcer Assessment Start: 02/08/23 11:06 Freq: Status: Active Protocol: SAHIL Activity Type Activity Date Activity User E-sign Co-sign Detail Recorded Client Recorded Date Recorded By Document 02/08/23 11:07 [facility] [id number] 02/08/23 11:13 [facility] Document 02/15/23 09:30 [id number] 02/15/23 09:34 Document 02/22/23 09:56 [id number] 02/22/23 09:59 RB 02/08/23 02/15/23 02/22/23 11:07 09:30 09:56 - Today's Visit Information Type of service Follow-up Visit Follow-up Visit Follow-up Visit (Physician/REAL ESTATE LEGAL ASSISTANT (Physician/REAL ESTATE LEGAL ASSISTANT (Physician/REAL ESTATE LEGAL ASSISTANT ) ) ) Arrival Mode Ambulatory Ambulatory Ambulatory Transfer Assistance None None None Patient Identification Verified (Name & Yes Yes Yes ) Patient Requires Transmission-Based No No No Precautions Height and Weight Body Mass Index (BMI) 23.5 23.5 23.5 BMI Classification Normal Normal Normal Vital Signs Temperature (97.8 F-99.1 F) 97.9 F 97.4 F L 97 F L Temperature Source Temporal Temporal Temporal Pulse Rate (60-100) 66 68 64 Pulse Location Monitor Monitor Monitor Respiratory Rate (12-18) 16 18 18 Respiratory rate source Observation Observation Observation Oxygen Delivery Method Room Air Blood Pressure (90/60-120/80) 119/49 L 135/52 H 100/64 Blood Pressure Mean (mm Hg) 72 79 76 Source Monitor Monitor Monitor Position Sitting Semi-Fowlers Semi-Fowlers Blood Pressure Location Left Arm Left Arm Left Arm History Since Last Visit- (Skip if this is Patient's initial visit) Have you changed medications since your No No No last visit? Any new allergies or adverse reactions No No No Had a fall/change in ADL's that may No No No increase risk of falls Signs or symptoms of abuse and/or No No No neglect since last visit Have you been in the hospital since your No No No last visit? Has dressing in place as prescribed Yes Yes Yes Has compression in place as prescribed N/A Yes No Has offloadiing in place as prescribed N/A No No Experienced any changes in pain level or No No No management Left Footwear Regular Shoe Right Footwear Regular Shoe Other Footwear just wearing an antonio to secure Pain Scale: 0-10 Numeric Is Patient Pain Free? Yes Yes Yes WC - Nurse 1 - General Ulcer Measurement Start: 02/08/23 11:06 Freq: Status: Active Protocol: Activity Type Activity Date Activity User E-sign Co-sign Detail Recorded Client Recorded Date Recorded By Document 02/08/23 11:07 [facility] [id number] 02/08/23 11:13 [facility] Document 02/15/23 09:30 [id number] 02/15/23 09:34 RB Document 02/22/23 09:56 RB [id number] 02/22/23 09:59 RB 02/08/23 02/15/23 02/22/23 11:07 09:30 09:56 Wound Center Nurse 1 2. R forearm -Combined with other wound No -Current Size (cm) - Length 3.5 -Current Size (cm) - Width 4.2 -Current Size (cm) - Depth 0.1 -Total Square Cm 14.70 -Photo Taken Yes -Tunneling No -Undermining/Tunneling No -Circular Undermining No -Exudate Amt Medium -Exudate Type Serosanguineous -Wound Margin Distinct, Outline Attached -Granulation Amt Medium (34-66%) -Granulation Quality [place] -Slough/Fibrin Yes -Necrosis Amt Medium (34-66%) -Necrotic Tissue Type Adherent Slough -Structure Exposed N/A -Texture (Elif-wound Skin Appearance) Assessed -Moisture (Elif-wound Skin Appearance) Assessed -Color (Elif-wound Skin Appearance) Assessed -Temperature (Elif-wound Skin No Abnormality Appearance) (Pt Warm) -Tenderness on Palpation (Elif-wound No Skin Appearance) -Ulcer Cleansing Wound Cleanser -Foul Odor after Cleansing No -Anesthetic Used 5% Lidocaine Gel #1- R LAT LE (P/O BASAL CELL CA) -Combined with other wound No No No -Current Size (cm) - Length 2.8 3.1 2.9 -Current Size (cm) - Width 2.4 2.6 2.3 -Current Size (cm) - Depth 0.1 0.1 0.1 -Total Square Cm 6.72 8.06 6.67 -Date of Last Picture (Recall this 02/08/23 field) -Photo Taken Yes Yes -Epithelialization Small 1-33% -Tunneling No No No -Undermining/Tunneling No No No -Circular Undermining No No No -Exudate Amt Medium Medium Medium -Exudate Type Serosanguineous Serosanguineous Serosanguineous -Wound Margin Distinct, Distinct, Distinct, Outline Outline Outline Attached Attached Attached -Granulation Amt Small (1-33%) Medium (34-66%) Medium (34-66%) -Granulation Quality Red [place] -Slough/Fibrin Yes Yes Yes -Necrosis Amt Large (67-100%) Medium (34-66%) Medium (34-66%) -Necrotic Tissue Type Adherent Slough Adherent Slough Adherent Slough -Structure Exposed N/A N/A -Texture (Elif-wound Skin Appearance) Assessed, Assessed Assessed Scarring -Moisture (Elif-wound Skin Appearance) Assessed,Dry/ Assessed Assessed Scaly -Color (Elif-wound Skin Appearance) Assessed Assessed Assessed -Temperature (Elif-wound Skin No Abnormality No Abnormality No Abnormality Appearance) (Pt Warm) (Pt Warm) (Pt Warm) -Tenderness on Palpation (Elif-wound No No No Skin Appearance) -Ulcer Cleansing Rinsed/ Wound Cleanser Wound Cleanser Irrigated with Saline -Foul Odor after Cleansing No No -Anesthetic Used 5% Lidocaine 5% Lidocaine 5% Lidocaine Gel Gel Gel Lower Limb Edema Present Yes Right Calf (cm) 34 Right Ankle (cm) 23.6 WC - Nurse 2 - General Ulcer CM Notes Start: 02/08/23 11:06 Freq: Status: Active Protocol: Activity Type Activity Date Activity User E-sign Co-sign Detail Recorded Client Recorded Date Recorded By Document 02/08/23 11:20 MW Desktop 02/08/23 11:30 MW Document 02/15/23 09:37 MW [id number] 02/15/23 09:45 MW Document 02/22/23 10:12 MW [id number] 02/22/23 10:24 MW 02/08/23 02/15/23 02/22/23 11:20 09:37 10:12 Wound Center Nurse 2 2. R forearm -Time 10:12 -Correct Patient Yes -Correct Side, Site, Position Yes -Correct Procedure Yes -Procedure Performed Yes -Type of Procedure Debridement -Clinical Debridement Subcutaneous -Tissue Removed Subcutaneous -Post Debridement (cm) - Length 3.5 -Post Debridement (cm) - Width 4.6 -Post Debridement (cm) - Depth 0.1 -Total Square (Post) (cm) 16.10 -Area of Debridement (cm) - Length 3.5 -Area of Debridement (cm) - Width 4.6 -Total Square (Area) (cm) 16.10 -Tunneling No -Undermining/Tunneling No -Circular Undermining No -Wound/Ulcer Outcome Not Healed -Ulcer Cleansing Rinsed/ Irrigated with Saline -Foul Odor after Cleansing No -Bioengineered Tissue No -Bleeding Controlled with Pressure -Treatment Response Procedure Tolerated Well -Offloading No -Debridement - Subq, 1st 20sq cm Yes #1- R LAT LE (P/O BASAL CELL CA) -Time 11:20 09:38 10:14 -Correct Patient Yes Yes Yes -Correct Side, Site, Position Yes Yes Yes -Correct Procedure Yes Yes Yes -Procedure Performed Yes Yes Yes -Type of Procedure Debridement Debridement Debridement -Clinical Debridement Subcutaneous Subcutaneous Subcutaneous -Tissue Removed Subcutaneous Subcutaneous Subcutaneous -Post Debridement (cm) - Length 2.5 2.8 2.5 -Post Debridement (cm) - Width 2.3 2.3 1.9 -Post Debridement (cm) - Depth 0.1 0.1 0.1 -Total Square (Post) (cm) 5.75 6.44 4.75 -Area of Debridement (cm) - Length 2.5 2.8 2.5 -Area of Debridement (cm) - Width 2.3 2.3 1.9 -Total Square (Area) (cm) 5.75 6.44 4.75 -Tunneling No No No -Undermining/Tunneling No No No -Circular Undermining No No No -Wound/Ulcer Outcome Not Healed Not Healed Not Healed -Ulcer Cleansing Rinsed/ Rinsed/ Rinsed/ Irrigated with Irrigated with Irrigated with Saline Saline Saline -Foul Odor after Cleansing No No No -Bioengineered Tissue Yes Yes Yes -Type of Bioengineered Tissue Epifix Mesh Epifix Mesh Epifix Mesh -Expiration Date 12/03/25 12/04/27 12/04/27 -Product Lot Number [id number] -Percent Used 100 100 100 -Lot number of Saline Used [id number] -Bleeding Controlled with Pressure Pressure Pressure -Treatment Response Procedure Procedure Procedure Tolerated Well Tolerated Well Tolerated Well -Offloading No No No -Debridement - Subq, 1st 20sq cm No No No -Apply Skin Sub - 1st 25 sq cm - Legs 1 1 1 -Epifix Mesh (per sq cm) 11 11 11 Pain Scale: 0-10 Numeric Is Patient Pain Free? Yes Yes Yes WC - Nurse 3 - General Ulcer D/C NN Start: 02/08/23 11:06 Freq: Status: Active Protocol: Activity Type Activity Date Activity User E-sign Co-sign Detail Recorded Client Recorded Date Recorded By Document 02/08/23 11:30 MW Desktop 02/08/23 11:31 MW Document 02/15/23 09:52 RB [id number] 02/15/23 09:53 RB Document 02/22/23 10:39 MW [id number] 02/22/23 10:40 MW 02/08/23 02/15/23 02/22/23 11:30 09:52 10:39 Wound Care Center Nurse 3 2. R forearm -Ulcer Cleansing Rinsed/ Irrigated with Saline -Foul Odor after Cleansing No -Negative Pressure Wound Therapy N/A -Primary Dressing Applied Aquacel Extra, NonAdherent Contact Layer -Other Covering abd -Aquacel Extra 2 #1- R LAT LE (P/O BASAL CELL CA) -Ulcer Cleansing Not Cleansed Not Cleansed -Foul Odor after Cleansing No -Negative Pressure Wound Therapy N/A -Other Dressing ABD ABD pad secured with partial cut antonio wrap as directed per Ayanna Hunt -Other Covering ANTONIO wrap ABD Right -Lotion applied to leg before No No compression wrap -Compression Wrap Antonio Wrap Antonio Wrap Treatment Response Procedure Procedure Procedure Tolerated Well Tolerated Well Tolerated Well Pain Scale: 0-10 Numeric Is Patient Pain Free? Yes Yes Yes Teaching: Wound Center Dressing Your Wound -Person Taught Patient Patient -Teaching Method Discussion Discussion, Demonstration -Response to teaching Verbalize Verbalize understanding understanding WC - Visit Discharge Discharge Condition Stable Stable Stable Ambulatory Status Ambulatory,Cane Ambulatory,Cane Ambulatory Transportation Private Auto Private Auto Private Auto Accompanied by self self Medication Reconcilliation completed & No No No provided to patient/care provider Clinical Summary of Care Provided Yes Yes Yes Additional Wound Wound debrided: Right forearm avulsion laceration Type of Debridement: Excisional debridement Anesthesia Used: 5% Lidocaine Gel Depth: Down to and including healthy tissue Percentage of wound debrided: 100 Instrument Used: 7mm curette Tissue Removed: Fibrin and devitalized tissue Severity: Limited To Skin Breakdown Amount of bleeding with debridement: Mild Bleeding Controlled with: Compression and gauze Patient tolerated procedure: Patient tolerated procedure well Assessment/Plan Assessment/Plan (1) Nonhealing nonsurgical wound: CODE(S): T14.8XXA - Other injury of unspecified body region, initial encounter PLAN: Wash area with antibacterial soap and apply the Aquacel extra and gauze wrap every day We will call with culture results for the infection (2) Cellulitis: CODE(S): L03.90 - Cellulitis, unspecified (3) Ulcer of right leg: CODE(S): L97.919 - Non-pressure chronic ulcer of unspecified part of rightlower leg with unspecified severity PLAN: EpiFix #3 applied to the leg with wound veil and Steri-Strips then a dry gauze dressing and Zehra. single-layer Tubigrip to the bilateral lower legs Follow-up in 1 week (4) Varicose veins of both lower extremities: CODE(S): I83.93 - Asymptomatic varicose veins of bilateral lower extremities (5) Edema of both lower extremities: CODE(S): R60.0 - Localized edema (6) Non-pressure ulcer of right lower extremity: CODE(S): L97.919 - Non-pressure chronic ulcer of unspecified part of rightlower leg with unspecified severity 02/22/23 1134 <Electronically signed by Mariela Martines NP CASTING REPAIRER-C> Cosigner Signature (if applicable): CC: ~ Signed [facility] Work Phone: 1(224) 406-323906-14-2023 Progress note Author Mariela Martines [facility] February 15, 2023 9:59am Note Date/Time February 15, 2023 9:59 am [facility] [address] [place] [address] Progress Note - Wound Care 02/15/23 0956 MR#: [id number] Acct: [id number] Name: MARY ALICE GA Rep #:[id number] : 1950 72 From: Mariela Martines NP 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 Khanh Rodriguez MD Status:R EG RCR Location: History of Present Illness Date of Service: 02/15/23 Chief Complaint: Follow-up on her right lower leg lateral area wound nonhealing since at least November. History of Wound: 72-year-old white female in [place] where she is living duringthe winter. She had a growth removed from her right lateral lower leg. She is still not sure if it is cancer or not. Was removed only by her regular doctor not a Derm doctor. Still open to the subcutaneous skin. She saw her own doctor up here and she was referred to us from her and put on cephalexin. Recently she was taken off her Lasix and has terrible edema of her lower extremities and abdomen. Patient states she has gained 9 pounds Progress of Wound: All her measurements are smaller in depth will continue the EpiFix today with #2. Tolerated debridement better this week also she does get that rim of skin around the canister angulates so got all that off so the nice smooth transition from wound to normal skin. Subjective Subjective Patient is pleased with outcomes Objective Data Objective Data Healing well edges of the wound are smooth and blending well with the skin surrounding the wound Vital Signs: Vital Signs Temp Pulse Resp BP O2 Del Method 97.4 F L 68 18 135/52 H Room Air 02/15/23 09:30 02/15/23 09:30 02/15/23 09:30 02/15/23 09:30 02/08/23 11:07 Oxygen Delivery Method Room Air Weight: 137 lb Body Mass Index (BMI) 23.5 Lab / Micro Data Attestation: I reviewed the patient's lab results. Physical Exam Const oriented x3 General Appearance: cooperative Exam Limitations: no limitations HEENT normocephalic Head and Scalp: normal to inspection Face and Sinus: normal facial exam Nose: external nose normal External Ear: external ears normal Eyes PERRL General Eye: normal appearance of both eyes Neck full ROM General: normal visual inspection Resp normal respiratory effort Effort and Inspection: able to speak in complete sentences Auscultation: clear to auscultation bilaterally Cardio regular rate and regular rhythm Palpation: normal PMI Rate: regular rate Rhythm: regular rhythm GI Auscultation: normoactive bowel sounds Palpation: soft and no hepatosplenomegaly Extremity Extremity Narrative: Edema from at least knees down to even toes like little sausages. Discolorationof her lower legs from probably peripheral vascular disease. She does have obvious varicosities. General Extremity: normal exam except as noted Skin General Skin Exam: erythema and venous stasis Wounds: wounds noted Wound Narrative: Rather large size of a $0.50 piece full-thickness open wound on the right lateral leg. We will try to get studies from the other doctor. Neuro oriented x3 Psych Appearance: grossly normal Speech: normal speech Thought Content: normal thought content Judgement: judgement good Debridement Note Debridement Note Wound debrided: Right lower leg traumatic wound Type of Debridement: Excisional debridement Anesthesia Used: 5% Lidocaine Gel Depth: Down to and including healthy tissue Percentage of wound debrided: 100 Instrument Used: 5mm curette Tissue Removed: Fibrin Severity: Fat Layer Exposed Amount of bleeding with debridement: Mild Bleeding Controlled with: Compression and gauze Patient tolerated procedure: Patient tolerated procedure well Post-Debridement Measurements and Additional Note: Post-Debridement Measurements/Treatment WC - Nurse 1 - General Ulcer Assessment Start: 02/08/23 11:06 Freq: Status: Active Protocol: SAHIL Activity Type Activity Date Activity User E-sign Co-sign Detail Recorded Client Recorded Date Recorded By Document 02/08/23 11:07 [facility] [id number] 02/08/23 11:13 [facility] Document 02/15/23 09:30 RB [id number] 02/15/23 09:34 RB 02/08/23 02/15/23 11:07 09:30 - Today's Visit Information Type of service Follow-up Visit Follow-up Visit (Physician/REAL ESTATE LEGAL ASSISTANT (Physician/REAL ESTATE LEGAL ASSISTANT ) ) Arrival Mode Ambulatory Ambulatory Transfer Assistance None None Patient Identification Verified (Name & Yes Yes ) Patient Requires Transmission-Based No No Precautions Height and Weight Body Mass Index (BMI) 23.5 23.5 BMI Classification Normal Normal Vital Signs Temperature (97.8 F-99.1 F) 97.9 F 97.4 F L Temperature Source Temporal Temporal Pulse Rate (60-100) 66 68 Pulse Location Monitor Monitor Respiratory Rate (12-18) 16 18 Respiratory rate source Observation Observation Oxygen Delivery Method Room Air Blood Pressure (90/60-120/80) 119/49 L 135/52 H Blood Pressure Mean (mm Hg) 72 79 Source Monitor Monitor Position Sitting Semi-Fowlers Blood Pressure Location Left Arm Left Arm History Since Last Visit- (Skip if this is Patient's initial visit) Have you changed medications since your No No last visit? Any new allergies or adverse reactions No No Had a fall/change in ADL's that may No No increase risk of falls Signs or symptoms of abuse and/or No No neglect since last visit Have you been in the hospital since your No No last visit? Has dressing in place as prescribed Yes Yes Has compression in place as prescribed N/A Yes Has offloadiing in place as prescribed N/A No Experienced any changes in pain level or No No management Left Footwear Regular Shoe Right Footwear Regular Shoe Other Footwear just wearing an antonio to secure Pain Scale: 0-10 Numeric Is Patient Pain Free? Yes Yes - Nurse 1 - General Ulcer Measurement Start: 02/08/23 11:06 Freq: Status: Active Protocol: Activity Type Activity Date Activity User E-sign Co-sign Detail Recorded Client Recorded Date Recorded By Document 02/08/23 11:07 [facility] [id number] 02/08/23 11:13 [facility] Document 02/15/23 09:30 RB [id number] 02/15/23 09:34 RB 02/08/23 02/15/23 11:07 09:30 Wound Center Nurse 1 #1- R LAT LE (P/O BASAL CELL CA) -Combined with other wound No No -Current Size (cm) - Length 2.8 3.1 -Current Size (cm) - Width 2.4 2.6 -Current Size (cm) - Depth 0.1 0.1 -Total Square Cm 6.72 8.06 -Date of Last Picture (Recall this 02/08/23 field) -Photo Taken Yes Yes -Epithelialization Small 1-33% -Tunneling No No -Undermining/Tunneling No No -Circular Undermining No No -Exudate Amt Medium Medium -Exudate Type Serosanguineous Serosanguineous -Wound Margin Distinct, Distinct, Outline Outline Attached Attached -Granulation Amt Small (1-33%) Medium (34-66%) -Granulation Quality Red [place] -Slough/Fibrin Yes Yes -Necrosis Amt Large (67-100%) Medium (34-66%) -Necrotic Tissue Type Adherent Slough Adherent Slough -Structure Exposed N/A -Texture (Elif-wound Skin Appearance) Assessed, Assessed Scarring -Moisture (Elif-wound Skin Appearance) Assessed,Dry/ Assessed Scaly -Color (Elif-wound Skin Appearance) Assessed Assessed -Temperature (Elif-wound Skin No Abnormality No Abnormality Appearance) (Pt Warm) (Pt Warm) -Tenderness on Palpation (Elif-wound No No Skin Appearance) -Ulcer Cleansing Rinsed/ Wound Cleanser Irrigated with Saline -Foul Odor after Cleansing No No -Anesthetic Used 5% Lidocaine 5% Lidocaine Gel Gel Lower Limb Edema Present Yes Right Calf (cm) 34 Right Ankle (cm) 23.6 WC - Nurse 2 - General Ulcer CM Notes Start: 02/08/23 11:06 Freq: Status: Active Protocol: Activity Type Activity Date Activity User E-sign Co-sign Detail Recorded Client Recorded Date Recorded By Document 02/08/23 11:20 MW Desktop 02/08/23 11:30 MW Document 02/15/23 09:37 MW [id number] 02/15/23 09:45 MW 02/08/23 02/15/23 11:20 09:37 Wound Center Nurse 2 #1- R LAT LE (P/O BASAL CELL CA) -Time 11:20 09:38 -Correct Patient Yes Yes -Correct Side, Site, Position Yes Yes -Correct Procedure Yes Yes -Procedure Performed Yes Yes -Type of Procedure Debridement Debridement -Clinical Debridement Subcutaneous Subcutaneous -Tissue Removed Subcutaneous Subcutaneous -Post Debridement (cm) - Length 2.5 2.8 -Post Debridement (cm) - Width 2.3 2.3 -Post Debridement (cm) - Depth 0.1 0.1 -Total Square (Post) (cm) 5.75 6.44 -Area of Debridement (cm) - Length 2.5 2.8 -Area of Debridement (cm) - Width 2.3 2.3 -Total Square (Area) (cm) 5.75 6.44 -Tunneling No No -Undermining/Tunneling No No -Circular Undermining No No -Wound/Ulcer Outcome Not Healed Not Healed -Ulcer Cleansing Rinsed/ Rinsed/ Irrigated with Irrigated with Saline Saline -Foul Odor after Cleansing No No -Bioengineered Tissue Yes Yes -Type of Bioengineered Tissue Epifix Mesh Epifix Mesh -Expiration Date 12/03/25 12/04/27 -Product Lot Number [id number] -Percent Used 100 100 -Lot number of Saline Used [id number] -Bleeding Controlled with Pressure Pressure -Treatment Response Procedure Procedure Tolerated Well Tolerated Well -Offloading No No -Debridement - Subq, 1st 20sq cm No No -Apply Skin Sub - 1st 25 sq cm - Legs 1 1 -Epifix Mesh (per sq cm) 11 11 Pain Scale: 0-10 Numeric Is Patient Pain Free? Yes Yes WC - Nurse 3 - General Ulcer D/C NN Start: 02/08/23 11:06 Freq: Status: Active Protocol: Activity Type Activity Date Activity User E-sign Co-sign Detail Recorded Client Recorded Date Recorded By Document 02/08/23 11:30 MW Desktop 02/08/23 11:31 MW Document 02/15/23 09:52 RB [id number] 02/15/23 09:53 RB 02/08/23 02/15/23 11:30 09:52 Wound Care Center Nurse 3 #1- R LAT LE (P/O BASAL CELL CA) -Ulcer Cleansing Not Cleansed -Other Dressing ABD ABD pad secured with partial cut antonio wrap as directed per Ayanna Williamso -Other Covering ANTONIO wrap Right -Lotion applied to leg before No compression wrap -Compression Wrap Antonio Wrap Treatment Response Procedure Procedure Tolerated Well Tolerated Well Pain Scale: 0-10 Numeric Is Patient Pain Free? Yes Yes Teaching: Wound Center Dressing Your Wound -Person Taught Patient -Teaching Method Discussion -Response to teaching Verbalize understanding WC - Visit Discharge Discharge Condition Stable Stable Ambulatory Status Ambulatory,Cane Ambulatory,Cane Transportation Private Auto Private Auto Accompanied by self Medication Reconcilliation completed & No No provided to patient/care provider Clinical Summary of Care Provided Yes Yes Assessment/Plan Assessment/Plan (1) Ulcer of right leg: CODE(S): L97.919 - Non-pressure chronic ulcer of unspecified part of rightlower leg with unspecified severity PLAN: EpiFix #2 applied to the leg with wound veil and Steri-Strips then a dry gauze dressing and Zehra. single-layer Tubigrip to the bilateral lower legs Follow-up in 1 week (2) Varicose veins of both lower extremities: CODE(S): I83.93 - Asymptomatic varicose veins of bilateral lower extremities (3) Edema of both lower extremities: CODE(S): R60.0 - Localized edema (4) Non-pressure ulcer of right lower extremity: CODE(S): L97.919 - Non-pressure chronic ulcer of unspecified part of rightlower leg with unspecified severity 02/15/23 0959 <Electronically signed by Mareila Martines NP CASTING REPAIRER-C> Cosigner Signature (if applicable): CC: ~ Signed [facility] Work Phone: 1(295) 642-964606-07-2023 Progress note Author Mariela Maritnes [facility] February 08, 2023 11:53am Note Date/Time February 08, 2023 11:53 am [facility] [address] [place] [address] Progress Note - Wound Care 02/08/23 1149 MR#: [id number] Acct: [id number] Name: MARY ALICE GA Rep #:[id number] : 1950 72 From: Mariela Martines NP 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 Khanh Rodriguez MD Status:R EG RCR Location: WC History of Present Illness Date of Service: 02/08/23 Chief Complaint: Follow-up on her right lower leg lateral area wound nonhealing since at least November. History of Wound: 72-year-old white female in [place] where she is living duringthe winter. She had a growth removed from her right lateral lower leg. She is still not sure if it is cancer or not. Was removed only by her regular doctor not a Derm doctor. Still open to the subcutaneous skin. She saw her own doctor up here and she was referred to us from her and put on cephalexin. Recently she was taken off her Lasix and has terrible edema of her lower extremities and abdomen. Patient states she has gained 9 pounds Progress of Wound: All her measurements are smaller she still on her antibiotics wound looks very good we will start the EpiFix today with #1. Tolerated debridement better this week also she does get that rim of skin around the canister angulates so got allthat off so the nice smooth transition from wound to normal skin. Subjective Subjective Patient is good with going on to the EpiFix will have to buy a boot for her legsso she does not get it wet Objective Data Objective Data As said above wound measures smaller skin looks good no sign of infection she isfinishing up her antibiotics we will start the EpiFix #1 Vital Signs: Vital Signs Temp Pulse Resp BP O2 Del Method 97.9 F 66 16 119/49 L Room Air 02/08/23 11:07 02/08/23 11:07 02/08/23 11:07 02/08/23 11:07 02/08/23 11:07 Oxygen Delivery Method Room Air Weight: 137 lb Body Mass Index (BMI) 23.5 Physical Exam Const oriented x3 General Appearance: cooperative Exam Limitations: no limitations HEENT normocephalic Head and Scalp: normal to inspection Face and Sinus: normal facial exam Nose: external nose normal External Ear: external ears normal Eyes PERRL General Eye: normal appearance of both eyes Neck full ROM General: normal visual inspection Resp normal respiratory effort Effort and Inspection: able to speak in complete sentences Auscultation: clear to auscultation bilaterally Cardio regular rate and regular rhythm Palpation: normal PMI Rate: regular rate Rhythm: regular rhythm GI Auscultation: normoactive bowel sounds Palpation: soft and no hepatosplenomegaly Extremity Extremity Narrative: Edema from at least knees down to even toes like little sausages. Discolorationof her lower legs from probably peripheral vascular disease. She does have obvious varicosities. General Extremity: normal exam except as noted Skin General Skin Exam: erythema and venous stasis Wounds: wounds noted Wound Narrative: Rather large size of a $0.50 piece full-thickness open wound on the right lateral leg. We will try to get studies from the other doctor. Neuro oriented x3 Psych Appearance: grossly normal Speech: normal speech Thought Content: normal thought content Judgement: judgement good Debridement Note Debridement Note Wound debrided: Right lateral lower leg from trauma nonpressure Laterality: Right Type of Debridement: Excisional debridement Anesthesia Used: 5% Lidocaine Gel Depth: Down to and including healthy tissue Percentage of wound debrided: 100 Instrument Used: 7mm curette Tissue Removed: Fibrin and some devitalized tissue Severity: Limited To Skin Breakdown Amount of bleeding with debridement: Mild Bleeding Controlled with: Compression and gauze Patient tolerated procedure: Patient tolerated procedure well Post-Debridement Measurements and Additional Note: Post-Debridement Measurements/Treatment - Nurse 1 - General Ulcer Assessment Start: 02/08/23 11:06 Freq: Status: Active Protocol: HERMILA.LOWLAURIET Activity Type Activity Date Activity User E-sign Co-sign Detail Recorded Client Recorded Date Recorded By Document 02/08/23 11:07 [facility] [id number] 02/08/23 11:13 [facility] 02/08/23 11:07 - Today's Visit Information Type of service Follow-up Visit (Physician/REAL ESTATE LEGAL ASSISTANT ) Arrival Mode Ambulatory Transfer Assistance None Patient Identification Verified (Name & Yes ) Patient Requires Transmission-Based No Precautions Height and Weight Body Mass Index (BMI) 23.5 BMI Classification Normal Vital Signs Temperature (97.8 F-99.1 F) 97.9 F Temperature Source Temporal Pulse Rate (60-100) 66 Pulse Location Monitor Respiratory Rate (12-18) 16 Respiratory rate source Observation Oxygen Delivery Method Room Air Blood Pressure (90/60-120/80) 119/49 L Blood Pressure Mean (mm Hg) 72 Source Monitor Position Sitting Blood Pressure Location Left Arm History Since Last Visit- (Skip if this is Patient's initial visit) Have you changed medications since your No last visit? Any new allergies or adverse reactions No Had a fall/change in ADL's that may No increase risk of falls Signs or symptoms of abuse and/or No neglect since last visit Have you been in the hospital since your No last visit? Has dressing in place as prescribed Yes Has compression in place as prescribed N/A Has offloadiing in place as prescribed N/A Experienced any changes in pain level or No management Left Footwear Regular Shoe Right Footwear Regular Shoe Other Footwear just wearing an antonio to secure Pain Scale: 0-10 Numeric Is Patient Pain Free? Yes WC - Nurse 1 - General Ulcer Measurement Start: 02/08/23 11:06 Freq: Status: Active Protocol: Activity Type Activity Date Activity User E-sign Co-sign Detail Recorded Client Recorded Date Recorded By Document 02/08/23 11:07 [facility] [id number] 02/08/23 11:13 [facility] 02/08/23 11:07 Wound Center Nurse 1 #1- R LAT LE (P/O BASAL CELL CA) -Combined with other wound No -Current Size (cm) - Length 2.8 -Current Size (cm) - Width 2.4 -Current Size (cm) - Depth 0.1 -Total Square Cm 6.72 -Date of Last Picture (Recall this 02/08/23 field) -Photo Taken Yes -Epithelialization Small 1-33% -Tunneling No -Undermining/Tunneling No -Circular Undermining No -Exudate Amt Medium -Exudate Type Serosanguineous -Wound Margin Distinct, Outline Attached -Granulation Amt Small (1-33%) -Granulation Quality Red -Slough/Fibrin Yes -Necrosis Amt Large (67-100%) -Necrotic Tissue Type Adherent Slough -Texture (Elif-wound Skin Appearance) Assessed, Scarring -Moisture (Elif-wound Skin Appearance) Assessed,Dry/ Scaly -Color (Elif-wound Skin Appearance) Assessed -Temperature (Elif-wound Skin No Abnormality Appearance) (Pt Warm) -Tenderness on Palpation (Elif-wound No Skin Appearance) -Ulcer Cleansing Rinsed/ Irrigated with Saline -Foul Odor after Cleansing No -Anesthetic Used 5% Lidocaine Gel Lower Limb Edema Present Yes Right Calf (cm) 34 Right Ankle (cm) 23.6 WC - Nurse 2 - General Ulcer CM Notes Start: 02/08/23 11:06 Freq: Status: Active Protocol: Activity Type Activity Date Activity User E-sign Co-sign Detail Recorded Client Recorded Date Recorded By Document 02/08/23 11:20 MW Desktop 02/08/23 11:30 MW 02/08/23 11:20 Wound Center Nurse 2 #1- R VICENTA JAMESON (P/O BASAL CELL CA) -Time 11:20 -Correct Patient Yes -Correct Side, Site, Position Yes -Correct Procedure Yes -Procedure Performed Yes -Type of Procedure Debridement -Clinical Debridement Subcutaneous -Tissue Removed Subcutaneous -Post Debridement (cm) - Length 2.5 -Post Debridement (cm) - Width 2.3 -Post Debridement (cm) - Depth 0.1 -Total Square (Post) (cm) 5.75 -Area of Debridement (cm) - Length 2.5 -Area of Debridement (cm) - Width 2.3 -Total Square (Area) (cm) 5.75 -Tunneling No -Undermining/Tunneling No -Circular Undermining No -Wound/Ulcer Outcome Not Healed -Ulcer Cleansing Rinsed/ Irrigated with Saline -Foul Odor after Cleansing No -Bioengineered Tissue Yes -Type of Bioengineered Tissue Epifix Mesh -Expiration Date 12/03/25 -Product Lot Number [id number] -Percent Used 100 -Lot number of Saline Used [id number] -Bleeding Controlled with Pressure -Treatment Response Procedure Tolerated Well -Offloading No -Debridement - Subq, 1st 20sq cm No -Apply Skin Sub - 1st 25 sq cm - Legs 1 -Epifix Mesh (per sq cm) 11 Pain Scale: 0-10 Numeric Is Patient Pain Free? Yes WC - Nurse 3 - General Ulcer D/C NN Start: 02/08/23 11:06 Freq: Status: Active Protocol: Activity Type Activity Date Activity User E-sign Co-sign Detail Recorded Client Recorded Date Recorded By Document 02/08/23 11:30 MW Desktop 02/08/23 11:31 MW 02/08/23 11:30 Wound Care Center Nurse 3 #1- Marino JAMESON (P/O BASAL CELL CA) -Ulcer Cleansing Not Cleansed -Other Dressing ABD -Other Covering ANTONIO wrap Right -Lotion applied to leg before No compression wrap -Compression Wrap Antonio Wrap Treatment Response Procedure Tolerated Well Pain Scale: 0-10 Numeric Is Patient Pain Free? Yes Teaching: Wound Center Dressing Your Wound -Person Taught Patient -Teaching Method Discussion -Response to teaching Verbalize understanding WC - Visit Discharge Discharge Condition Stable Ambulatory Status Ambulatory,Cane Transportation Private Auto Accompanied by self Medication Reconcilliation completed & No provided to patient/care provider Clinical Summary of Care Provided Yes Assessment/Plan Assessment/Plan (1) Ulcer of right leg: CODE(S): L97.919 - Non-pressure chronic ulcer of unspecified part of rightlower leg with unspecified severity PLAN: EpiFix #1 applied to the leg with wound veil and Steri-Strips then a dry gauze dressing and Zehra. single-layer Tubigrip to the bilateral lower legs Follow-up in 1 week (2) Varicose veins of both lower extremities: CODE(S): I83.93 - Asymptomatic varicose veins of bilateral lower extremities (3) Edema of both lower extremities: CODE(S): R60.0 - Localized edema (4) Non-pressure ulcer of right lower extremity: CODE(S): L97.919 - Non-pressure chronic ulcer of unspecified part of rightlower leg with unspecified severity 02/08/23 1153 <Electronically signed by Mariela Martines NP CASTING REPAIRER-C> Cosigner Signature (if applicable): CC: ~ Signed [facility] Work Phone: 1(332) 946-143405-31-2023 Progress note Author Mariela Martines [facility] February 01, 2023 12:26pm Note Date/Time February 01, 2023 12:26 pm [facility] [address] [place] [id number] Progress Note - Wound Care 02/01/23 1222 MR#: [id number] Acct: [id number] Name: MARY ALICE GA Rep #:[id number] : 1950 72 From: Mariela Martines NP 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 Khanh Rodriguez MD Status:R EG RCR Location: History of Present Illness Date of Service: 02/01/23 Chief Complaint: Follow-up on her right lower leg lateral area wound nonhealing since at least November. History of Wound: 72-year-old white female in [place] where she is living duringthe winter. She had a growth removed from her right lateral lower leg. She is still not sure if it is cancer or not. Was removed only by her regular doctor not a Derm doctor. Still open to the subcutaneous skin. She saw her own doctor up here and she was referred to us from her and put on cephalexin. Recently she was taken off her Lasix and has terrible edema of her lower extremities and abdomen. Patient states she has gained 9 pounds Progress of Wound: Wound cultures came back positive and patient will be started on Levaquin 500 mgdaily for 14 days Measurements were slightly smaller patient was doing well on Aquacel extra we will continue with the same treatment. Patient was also approved for EpiFix but will wait 1 week because of the infection. Subjective Subjective Patient is happy with outcomes Objective Data Objective Data The surrounding skin around the wound looks dark tanned and a lot of possible skin issues such as basal cell. Huge black freckles around in her darkened skin. The wound itself is measuring smaller. Vital Signs: Vital Signs Temp Pulse Resp BP O2 Del Method 97.2 F L 66 16 105/54 L Room Air 02/01/23 11:13 02/01/23 11:13 02/01/23 11:13 02/01/23 11:13 02/01/23 11:13 Oxygen Delivery Method Room Air Weight: 137 lb Body Mass Index (BMI) 23.5 Lab / Micro Data Micro: Microbiology 01/25/23 10:00 Wound Abcess - Leg, Right Gram Stain - Final 01/25/23 10:00 Wound Abcess - Leg, Right Wound Culture - Final Pseudomonas aeruginosa Staphylococcus pseudintermediu 01/25/23 10:00 Wound Abcess - Leg, Right Anaerobic Culture - Final No anaerobic bacteria isolated. Physical Exam Const oriented x3 General Appearance: cooperative Exam Limitations: no limitations HEENT normocephalic Head and Scalp: normal to inspection Face and Sinus: normal facial exam Nose: external nose normal External Ear: external ears normal Eyes PERRL General Eye: normal appearance of both eyes Neck full ROM General: normal visual inspection Resp normal respiratory effort Effort and Inspection: able to speak in complete sentences Auscultation: clear to auscultation bilaterally Cardio regular rate and regular rhythm Palpation: normal PMI Rate: regular rate Rhythm: regular rhythm GI Auscultation: normoactive bowel sounds Palpation: soft and no hepatosplenomegaly Extremity Extremity Narrative: Edema from at least knees down to even toes like little sausages. Discolorationof her lower legs from probably peripheral vascular disease. She does have obvious varicosities. General Extremity: normal exam except as noted Skin General Skin Exam: erythema and venous stasis Wounds: wounds noted Wound Narrative: Rather large size of a $0.50 piece full-thickness open wound on the right lateral leg. We will try to get studies from the other doctor. Neuro oriented x3 Psych Appearance: grossly normal Speech: normal speech Thought Content: normal thought content Judgement: judgement good Debridement Note Debridement Note Wound debrided: Right lateral lower leg traumatic opening Type of Debridement: Excisional debridement Anesthesia Used: 5% Lidocaine Gel Depth: Down to and including healthy tissue and in the subcutaneous layer Percentage of wound debrided: 100 Instrument Used: 7mm curette Tissue Removed: Fibrin Severity: Fat Layer Exposed Amount of bleeding with debridement: Mild Bleeding Controlled with: Compression and gauze Patient tolerated procedure: Patient tolerated procedure well Post-Debridement Measurements and Additional Note: Post-Debridement Measurements/Treatment - Nurse 1 - General Ulcer Assessment Start: 01/25/23 09:11 Freq: Status: Active Protocol: SAHIL Activity Type Activity Date Activity User E-sign Co-sign Detail Recorded Client Recorded Date Recorded By Document 01/25/23 09:15 [facility] [id number] 01/25/23 09:39 [facility] Document 02/01/23 11:13 [facility] [id number] 02/01/23 11:20 [facility] 01/25/23 02/01/23 09:15 11:13 - Today's Visit Information Type of service Initial Visit Follow-up Visit (Physician/REAL ESTATE LEGAL ASSISTANT ) Arrival Mode Ambulatory,Cane Ambulatory Transfer Assistance None None Patient Identification Verified (Name & Yes Yes ) Patient Requires Transmission-Based No No Precautions Height and Weight Height 5 ft 4 in Weight 137 lb Weight in Pounds 137.0 lbs Weight Measurement Method Stated by Patient Body Mass Index (BMI) 23.5 23.5 BMI Classification Normal Normal BSA - [place] 1.67 Vital Signs Temperature (97.8 F-99.1 F) 97.1 F L 97.2 F L Temperature Source Temporal Temporal Pulse Rate (60-100) 70 66 Pulse Location Monitor Monitor Respiratory Rate (12-18) 16 16 Respiratory rate source Observation Observation Oxygen Delivery Method Room Air Room Air Blood Pressure (90/60-120/80) 109/50 L 105/54 L Blood Pressure Mean (mm Hg) 69 71 Source Monitor Monitor Position Sitting Sitting Blood Pressure Location Left Arm Left Arm History Since Last Visit- (Skip if this is Patient's initial visit) Have you changed medications since your No last visit? Any new allergies or adverse reactions No Had a fall/change in ADL's that may No increase risk of falls Signs or symptoms of abuse and/or No neglect since last visit Have you been in the hospital since your No last visit? Has dressing in place as prescribed Yes Has compression in place as prescribed No Has offloadiing in place as prescribed N/A Experienced any changes in pain level or No management Left Footwear Regular Shoe Regular Shoe Right Footwear Regular Shoe Regular Shoe Pain Scale: 0-10 Numeric Is Patient Pain Free? Yes Yes Lower Extremity Assessment/ Foot Assessment/ Toe Nail Assessment Right -Posterior Tibial Palpable No -Posterior Tibial Doppler Monophasic -Dorsalis Pedis Doppler Monophasic -Extremity Color Hyperpigmented -Hair Growth on Legs No -Hair Growth on Toes No -Temperature of Extremity Cool -Thick Yes -Discolored Yes -Deformed No -Improper Length & Hygeine No Left -Posterior Tibial Palpable No -Posterior Tibial Doppler Monophasic -Dorsalis Pedis Doppler Monophasic -Extremity Color Hyperpigmented -Hair Growth on Legs No -Hair Growth on Toes No -Temperature of Extremity Cool -Thick Yes -Discolored Yes -Deformed No -Improper Length & Hygeine No Neuropathy Assessment Feet - Top Side and Bottom <Entered> (a) Communication Assessment Preferred language [place] Media Producer Required No Able to Read Yes Able to Write Yes Communication Tools None Right Hearing Abillity Normal Left Hearing Abillity Normal Visual Assistive Devices Glasses Teaching Assessment Preferences Verbal,Written, Audio/Visual, Demonstration Barriers to Learning None Readiness To Learn Excellent Willingness to Engage in Self Management High Activies Readiness to Engage in Self Management High Activities Anxiety Level Calm Cooperation Cooperative Perception Coherent Interest in Health Problem Asks Questions Education Importance Acknowledges Need Does Patient Smoke tobacco or other No substances Smoking Status Never smoker Is Patient Diabetic No Functional Assessment Recent Decline in Ability to Perform Denies Any Declines Culture/Buddhism/Audit Officer Cultural/Buddhism Needs that may affect No Treatment Plan Teaching: Wound Center *Welcome to the Wound Center -Person Taught Patient -Teaching Method Discussion -Response to teaching Verbalize understanding Welcome to the Wound Care Center [place]er (a) 1 - + WC - Nurse 1 - General Ulcer Measurement Start: 01/25/23 09:11 Freq: Status: Active Protocol: Activity Type Activity Date Activity User E-sign Co-sign Detail Recorded Client Recorded Date Recorded By Document 01/25/23 09:15 [facility] [id number] 01/25/23 09:39 BM Document 02/01/23 11:13 [facility] [id number] 02/01/23 11:20 BM 01/25/23 02/01/23 09:15 11:13 Wound Center Nurse 1 #1- R LAT LE (P/O BASAL CELL CA) -Combined with other wound No No -Current Size (cm) - Length 3.2 3.1 -Current Size (cm) - Width 3 2.5 -Current Size (cm) - Depth 0.2 0.2 -Total Square Cm 9.6 7.75 -Date of Last Picture (Recall this 01/25/23 02/01/23 field) -Photo Taken Yes Yes -Epithelialization None Present None Present -Tunneling No No -Undermining/Tunneling No No -Circular Undermining No No -Exudate Amt Medium Medium -Exudate Type Serosanguineous Serosanguineous -Wound Margin Distinct, Distinct, Outline Outline Attached Attached -Granulation Amt Small (1-33%) Small (1-33%) -Granulation Quality Red Red -Slough/Fibrin Yes Yes -Necrosis Amt Large (67-100%) Large (67-100%) -Necrotic Tissue Type Adherent Slough Adherent Slough -Texture (Elif-wound Skin Appearance) Assessed, Assessed, Scarring Scarring -Moisture (Elif-wound Skin Appearance) Assessed Assessed,Dry/ Scaly -Color (Elif-wound Skin Appearance) Assessed, Assessed Erythema -Temperature (Elif-wound Skin No Abnormality No Abnormality Appearance) (Pt Warm) (Pt Warm) -Tenderness on Palpation (Elif-wound Yes No Skin Appearance) -Ulcer Cleansing Soap and Water Rinsed/ Irrigated with Saline -Foul Odor after Cleansing No No -Anesthetic Used 5% Lidocaine 5% Lidocaine Gel Gel Lower Limb Edema Present Yes Yes Right Calf (cm) 37.1 33.9 Right Ankle (cm) 22.7 22.6 Left Calf (cm) 32.9 Left Ankle (cm) 21.2 WC - Nurse 2 - General Ulcer CM Notes Start: 01/25/23 09:11 Freq: Status: Active Protocol: Activity Type Activity Date Activity User E-sign Co-sign Detail Recorded Client Recorded Date Recorded By Document 01/25/23 09:55 MW [id number] 01/25/23 10:02 MW Document 02/01/23 11:28 MW [id number] 02/01/23 11:32 MW 01/25/23 02/01/23 09:55 11:28 Wound Center Nurse 2 #1- R LAT LE (P/O BASAL CELL CA) -Time 09:56 11:30 -Correct Patient Yes Yes -Correct Side, Site, Position Yes Yes -Correct Procedure Yes Yes -Procedure Performed Yes Yes -Type of Procedure Debridement Debridement -Clinical Debridement Subcutaneous Subcutaneous -Tissue Removed Subcutaneous Subcutaneous -Post Debridement (cm) - Length 3.5 3.2 -Post Debridement (cm) - Width 3.0 2.5 -Post Debridement (cm) - Depth 0.2 0.1 -Total Square (Post) (cm) 10.50 8.00 -Area of Debridement (cm) - Length 3.5 3.2 -Area of Debridement (cm) - Width 3.0 2.5 -Total Square (Area) (cm) 10.50 8.00 -Tunneling No No -Undermining/Tunneling No No -Circular Undermining No No -Wound/Ulcer Outcome Not Healed Not Healed -Ulcer Cleansing Rinsed/ Rinsed/ Irrigated with Irrigated with Saline Saline -Foul Odor after Cleansing No No -Bioengineered Tissue No No -Bleeding Controlled with Pressure Pressure -Treatment Response Procedure Procedure Tolerated Well Tolerated Well -Offloading No No -Debridement - Subq, 1st 20sq cm Yes Yes Pain Scale: 0-10 Numeric Is Patient Pain Free? Yes Yes WC - Nurse 3 - General Ulcer D/C NN Start: 01/25/23 09:11 Freq: Status: Active Protocol: Activity Type Activity Date Activity User E-sign Co-sign Detail Recorded Client Recorded Date Recorded By Document 01/25/23 10:42 RB [id number] 01/25/23 10:43 RB Document 02/01/23 11:32 MW [id number] 02/01/23 11:38 MW 01/25/23 02/01/23 10:42 11:32 Wound Care Center Nurse 3 #1- R LAT LE (P/O BASAL CELL CA) -Ulcer Cleansing Rinsed/ Rinsed/ Irrigated with Irrigated with Saline Saline -Foul Odor after Cleansing No -Negative Pressure Wound Therapy N/A -Primary Dressing Applied Aquacel Extra, Aquacel Extra, NonAdherent NonAdherent Contact Layer Contact Layer -Primary Dressing Covered/Secured with Dry Gauze,Dry Dry Gauze & Gauze & Roll Roll Gauze, Gauze,Secured Secured with with Tape Tape -Aquacel Extra 1 1 Right -Compression Wrap Antonio Wrap -Tubular Bandage Single Layer -Size of Tubigrip Used Size D -Size D ($) 1 Left -Tubular Bandage Single Layer -Size of Tubigrip Used Size D -Size D ($) 1 Treatment Response Procedure Procedure Tolerated Well Tolerated Well Pain Scale: 0-10 Numeric Is Patient Pain Free? Yes Yes Teaching: Wound Center Compression Wraps & Stockings -Person Taught Patient -Teaching Method Discussion, Demonstration -Response to teaching Verbalize understanding Dressing Your Wound -Person Taught Patient -Teaching Method Discussion, Demonstration -Response to teaching Verbalize understanding WC - Visit Discharge Discharge Condition Stable Stable Ambulatory Status Ambulatory,Cane Ambulatory,Cane Transportation Private Auto Private Auto Medication Reconcilliation completed & No provided to patient/care provider Clinical Summary of Care Provided Yes Assessment/Plan Assessment/Plan (1) Ulcer of right leg: CODE(S): L97.919 - Non-pressure chronic ulcer of unspecified part of rightlower leg with unspecified severity PLAN: Wash the leg with antibacterial soap apply Aquacel extra moistened with Adaptic over top gauze dressing and Zehra single-layer Tubigrip to the bilaterallower legs Follow-up in 1 week Patient needs to call About the edema (2) Varicose veins of both lower extremities: CODE(S): I83.93 - Asymptomatic varicose veins of bilateral lower extremities (3) Edema of both lower extremities: CODE(S): R60.0 - Localized edema 02/01/23 1226 <Electronically signed by Mariela Martines NP CASTING REPAIRER-C> Cosigner Signature (if applicable): CC: ~ Signed [facility] Work Phone: 1(717) 106-928905-24-2023 History and physical note Author Mariela Martines [facility] January 25, 2023 12:44pm Note Date/Time January 25, 2023 12:44 pm [facility] [address] [place] [address] H&P Exam - Wound Care 01/25/23 1234 MR#: [id number] Acct: [id number] Name: MARY ALICE GA Rep #:[id number] : 1950 72 From: Mariela Martines NP 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 Khanh Rodriguez MD Status:R EG RCR Location: History of Present Illness Date of Service: 01/25/23 Chief Complaint: Follow-up on her right lower leg lateral area wound nonhealing since at least November. History of Wound: 72-year-old white female in [place] where she is living duringthe winter. She had a growth removed from her right lateral lower leg. She is still not sure if it is cancer or not. Was removed only by her regular doctor not a Derm doctor. Still open to the subcutaneous skin. She saw her own doctor up here and she was referred to us from her and put on cephalexin. Recently she was taken off her Lasix and has terrible edema of her lower extremities and abdomen. Patient states she has gained 9 pounds PFSH Medical History Age-related physical debility Arthritis Bleeding ulcer Broken hip Carotid stenosis, right Cellulitis of right leg Cirrhosis Dermatitis Elevated liver enzymes GERD (gastroesophageal reflux disease) History of skin cancer Hx of staphylococcal infection Hypertension Hypokalemia Hyponatremia Hypotension Left hip pain Osteoporosis Post-menopausal Screening for thyroid disorder Ulcer of right leg Varicose veins of both lower extremities Vertigo Home Medications alendronate 70 mg tablet (Fosamax) 70 mg PO QWEEK #30 tabs 04/12/22 [Rx Last Taken Unknown] spironolactone 50 mg tablet 50 mg PO DAILY #90 tabs 04/12/22 [Rx Last Taken Unknown] pantoprazole 40 mg tablet,delayed release 40 mg PO DAILY #90 tabs 04/22/22 [Rx Last Taken Unknown] nadolol 20 mg tablet See Rx Instructions .Route .COMPLEX #90 tabs 12/01/22 [Rx Last Taken Unknown] cephalexin 500 mg capsule 500 mg PO TID #21 caps 01/20/23 [Rx Last Taken Unknown] potassium chloride 20 mEq tablet,extended release(part/cryst) 40 meq PO BID 1 week #28 tabs 01/20/23 [Rx Last Taken Unknown] sodium chloride 1,000 mg soluble tablet mg PO 01/20/23 [History Last Taken Unknown] triamcinolone acetonide 0.1 % topical ointment 1 applic topical DAILY PRN Dermatitis #80 grams 01/20/23 [Rx Last Taken Unknown] Allergy/AdvReac Type Severity Reaction Status Date / Time chlorhexidine Allergy Mild Other Verified 01/25/23 09:43 [From [facility]] Family History Mother Heart disease Father Heart disease Surgical History History of hysterectomy History of knee replacement History of left hip replacement Social History Smoking Status: Never smoker alcohol intake: current alcohol intake frequency: 0-2 drinks per day Alcohol type: wine substance use type: does not use ROS Constitutional Constitutional: Reports systems reviewed and no addt'l complaints, except as documented Eyes Eyes: Reports systems reviewed and no addt'l complaints, except as documented ENT HEENT: Reports systems reviewed and no addt'l complaints, except as documented Cardiovascular Cardiovascular: Reports systems reviewed and no addt'l complaints, except as documented Respiratory/Chest Respiratory/Chest: Reports systems reviewed and no addt'l complaints, except as documented Gastrointestinal Gastrointestinal: Reports systems reviewed and no addt'l complaints, except as documented Genitourinary Genitourinary: Reports systems reviewed and no addt'l complaints, except as documented Musculoskeletal Musculoskeletal: Reports systems reviewed and no addt'l complaints, except as documented Integumentary Integumentary: Reports skin pain, skin swelling, wounds and other Details: Nonhealing open wound from a removal of a lesion on her right lower leg since November Has not really been using anything but a dressing on it. Neurologic Neurologic: Reports systems reviewed and no addt'l complaints, except as documented Psychiatric Psychiatric: Reports systems reviewed and no addt'l complaints, except as documented Endocrine Endocrinology: Reports systems reviewed and no addt'l complaints, except as documented Hematologic/Lymphatic Hematologic/Lymphatic: Reports systems reviewed and no addt'l complaints, exceptas documented Allergic/Immunologic Allergic/Immunologic: Reports systems reviewed and no addt'l complaints, except as documented Vital Signs Vital Signs Vital Signs: 01/25/23 09:15 Temperature 97.1 F L Temperature Source Temporal Pulse Rate 70 Respiratory Rate 16 Blood Pressure 109/50 L Blood Pressure Mean 69 Blood Pressure Source Monitor Blood Pressure Position Sitting Blood Pressure Location Left Arm Oxygen Delivery Method Room Air Weight Weight: 137 lb Body Mass Index (BMI) 23.5 Physical Exam Const oriented x3 General Appearance: cooperative Exam Limitations: no limitations HEENT normocephalic Head and Scalp: normal to inspection Face and Sinus: normal facial exam Nose: external nose normal External Ear: external ears normal Eyes PERRL General Eye: normal appearance of both eyes Neck full ROM General: normal visual inspection Resp normal respiratory effort Effort and Inspection: able to speak in complete sentences Auscultation: clear to auscultation bilaterally Cardio regular rate and regular rhythm Palpation: normal PMI Rate: regular rate Rhythm: regular rhythm GI Auscultation: normoactive bowel sounds Palpation: soft and no hepatosplenomegaly Extremity Extremity Narrative: Edema from at least knees down to even toes like little sausages. Discolorationof her lower legs from probably peripheral vascular disease. She does have obvious varicosities. General Extremity: normal exam except as noted Skin General Skin Exam: erythema and venous stasis Wounds: wounds noted Wound Narrative: Rather large size of a $0.50 piece full-thickness open wound on the right lateral leg. We will try to get studies from the other doctor. Neuro oriented x3 Psych Appearance: grossly normal Speech: normal speech Thought Content: normal thought content Judgement: judgement good Debridement Note Debridement Note Wound debrided: Right lower extremity open wound Laterality: Right Type of Debridement: Excisional debridement Anesthesia Used: 4% Lidocaine Solution and 5% Lidocaine Gel Depth: Down to and including healthy tissue and in the subcutaneous layer Percentage of wound debrided: 100 Instrument Used: 7mm curette Tissue Removed: Fibrin Severity: Limited To Skin Breakdown Amount of bleeding with debridement: Mild Bleeding Controlled with: Compression and gauze Patient tolerated procedure: Patient tolerated procedure well Post-Debridement Measurements and Additional Note: Post-Debridement Measurements/Treatment - Nurse 1 - General Ulcer Assessment Start: 01/25/23 09:11 Freq: Status: Active Protocol: SAHIL Activity Type Activity Date Activity User E-sign Co-sign Detail Recorded Client Recorded Date Recorded By Document 01/25/23 09:15 [facility] [id number] 01/25/23 09:39 [facility] 01/25/23 09:15 - Today's Visit Information Type of service Initial Visit Arrival Mode Ambulatory,Cane Transfer Assistance None Patient Identification Verified (Name & Yes ) Patient Requires Transmission-Based No Precautions Height and Weight Height 5 ft 4 in Weight 137 lb Weight in Pounds 137.0 lbs Weight Measurement Method Stated by Patient Body Mass Index (BMI) 23.5 BMI Classification Normal BSA - [place] 1.67 Vital Signs Temperature (97.8 F-99.1 F) 97.1 F L Temperature Source Temporal Pulse Rate (60-100) 70 Pulse Location Monitor Respiratory Rate (12-18) 16 Respiratory rate source Observation Oxygen Delivery Method Room Air Blood Pressure (90/60-120/80) 109/50 L Blood Pressure Mean 69 Source Monitor Position Sitting Blood Pressure Location Left Arm History Since Last Visit- (Skip if this is Patient's initial visit) Left Footwear Regular Shoe Right Footwear Regular Shoe Pain Scale: 0-10 Numeric Is Patient Pain Free? Yes Lower Extremity Assessment/ Foot Assessment/ Toe Nail Assessment Right -Posterior Tibial Palpable No -Posterior Tibial Doppler Monophasic -Dorsalis Pedis Doppler Monophasic -Extremity Color Hyperpigmented -Hair Growth on Legs No -Hair Growth on Toes No -Temperature of Extremity Cool -Thick Yes -Discolored Yes -Deformed No -Improper Length & Hygeine No Left -Posterior Tibial Palpable No -Posterior Tibial Doppler Monophasic -Dorsalis Pedis Doppler Monophasic -Extremity Color Hyperpigmented -Hair Growth on Legs No -Hair Growth on Toes No -Temperature of Extremity Cool -Thick Yes -Discolored Yes -Deformed No -Improper Length & Hygeine No Neuropathy Assessment Feet - Top Side and Bottom <Entered> (a) Communication Assessment Preferred language [place] Media Producer Required No Able to Read Yes Able to Write Yes Communication Tools None Right Hearing Abillity Normal Left Hearing Abillity Normal Visual Assistive Devices Glasses Teaching Assessment Preferences Verbal,Written, Audio/Visual, Demonstration Barriers to Learning None Readiness To Learn Excellent Willingness to Engage in Self Management High Activies Readiness to Engage in Self Management High Activities Anxiety Level Calm Cooperation Cooperative Perception Coherent Interest in Health Problem Asks Questions Education Importance Acknowledges Need Does Patient Smoke tobacco or other No substances Smoking Status Never smoker Is Patient Diabetic No Functional Assessment Recent Decline in Ability to Perform Denies Any Declines Culture/Buddhism/Audit Officer Cultural/Buddhism Needs that may affect No Treatment Plan Teaching: Wound Center *Welcome to the Wound Center -Person Taught Patient -Teaching Method Discussion -Response to teaching Verbalize understanding Welcome to the Wound Care Center [place] (a) 1 - + WC - Nurse 1 - General Ulcer Measurement Start: 01/25/23 09:11 Freq: Status: Active Protocol: Activity Type Activity Date Activity User E-sign Co-sign Detail Recorded Client Recorded Date Recorded By Document 01/25/23 09:15 [facility] [id number] 01/25/23 09:39 [facility] 01/25/23 09:15 Wound Center Nurse 1 #1- R LAT LE (P/O BASAL CELL CA) -Combined with other wound No -Current Size (cm) - Length 3.2 -Current Size (cm) - Width 3 -Current Size (cm) - Depth 0.2 -Total Square Cm 9.6 -Date of Last Picture (Recall this 01/25/23 field) -Photo Taken Yes -Epithelialization None Present -Tunneling No -Undermining/Tunneling No -Circular Undermining No -Exudate Amt Medium -Exudate Type Serosanguineous -Wound Margin Distinct, Outline Attached -Granulation Amt Small (1-33%) -Granulation Quality Red -Slough/Fibrin Yes -Necrosis Amt Large (67-100%) -Necrotic Tissue Type Adherent Slough -Texture (Elif-wound Skin Appearance) Assessed, Scarring -Moisture (Elif-wound Skin Appearance) Assessed -Color (Elif-wound Skin Appearance) Assessed, Erythema -Temperature (Elif-wound Skin No Abnormality Appearance) (Pt Warm) -Tenderness on Palpation (Elif-wound Yes Skin Appearance) -Ulcer Cleansing Soap and Water -Foul Odor after Cleansing No -Anesthetic Used 5% Lidocaine Gel Lower Limb Edema Present Yes Right Calf (cm) 37.1 Right Ankle (cm) 22.7 Left Calf (cm) 32.9 Left Ankle (cm) 21.2 - Nurse 2 - General Ulcer CM Notes Start: 01/25/23 09:11 Freq: Status: Active Protocol: Activity Type Activity Date Activity User E-sign Co-sign Detail Recorded Client Recorded Date Recorded By Document 01/25/23 09:55 MW [id number] 01/25/23 10:02 MW 01/25/23 09:55 Wound Center Nurse 2 #1- R VICENTA JAMESON (P/O BASAL CELL CA) -Time 09:56 -Correct Patient Yes -Correct Side, Site, Position Yes -Correct Procedure Yes -Procedure Performed Yes -Type of Procedure Debridement -Clinical Debridement Subcutaneous -Tissue Removed Subcutaneous -Post Debridement (cm) - Length 3.5 -Post Debridement (cm) - Width 3.0 -Post Debridement (cm) - Depth 0.2 -Total Square (Post) (cm) 10.50 -Area of Debridement (cm) - Length 3.5 -Area of Debridement (cm) - Width 3.0 -Total Square (Area) (cm) 10.50 -Tunneling No -Undermining/Tunneling No -Circular Undermining No -Wound/Ulcer Outcome Not Healed -Ulcer Cleansing Rinsed/ Irrigated with Saline -Foul Odor after Cleansing No -Bioengineered Tissue No -Bleeding Controlled with Pressure -Treatment Response Procedure Tolerated Well -Offloading No -Debridement - Subq, 1st 20sq cm Yes Pain Scale: 0-10 Numeric Is Patient Pain Free? Yes - Nurse 3 - General Ulcer D/C NN Start: 01/25/23 09:11 Freq: Status: Active Protocol: Activity Type Activity Date Activity User E-sign Co-sign Detail Recorded Client Recorded Date Recorded By Document 01/25/23 10:42 RB [id number] 01/25/23 10:43 RB 01/25/23 10:42 Wound Care Center Nurse 3 #1- R LAT LE (P/O BASAL CELL CA) -Ulcer Cleansing Rinsed/ Irrigated with Saline -Primary Dressing Applied Aquacel Extra, NonAdherent Contact Layer -Primary Dressing Covered/Secured with Dry Gauze,Dry Gauze & Roll Gauze,Secured with Tape -Aquacel Extra 1 Right -Tubular Bandage Single Layer -Size of Tubigrip Used Size D -Size D ($) 1 Left -Tubular Bandage Single Layer -Size of Tubigrip Used Size D -Size D ($) 1 Treatment Response Procedure Tolerated Well Pain Scale: 0-10 Numeric Is Patient Pain Free? Yes Teaching: Wound Center Compression Wraps & Stockings -Person Taught Patient -Teaching Method Discussion, Demonstration -Response to teaching Verbalize understanding Dressing Your Wound -Person Taught Patient -Teaching Method Discussion, Demonstration -Response to teaching Verbalize understanding WC - Visit Discharge Discharge Condition Stable Ambulatory Status Ambulatory,Cane Transportation Private Auto Medication Reconcilliation completed & No provided to patient/care provider Clinical Summary of Care Provided Yes Assessment/Plan Assessment/Plan (1) Ulcer of right leg: CODE(S): L97.919 - Non-pressure chronic ulcer of unspecified part of rightlower leg with unspecified severity PLAN: Wash the leg with antibacterial soap apply Aquacel extra moistened with Adaptic over top gauze dressing and Zehra single-layer Tubigrip to the bilaterallower legs Follow-up in 1 week Patient needs to call About the edema (2) Varicose veins of both lower extremities: CODE(S): I83.93 - Asymptomatic varicose veins of bilateral lower extremities (3) Edema of both lower extremities: CODE(S): R60.0 - Localized edema 01/25/23 1244 <Electronically signed by Mariela Martines NP CASTING REPAIRER-C> Cosigner Signature (if applicable): CC: ~ Signed [facility] Work Phone: [phone] History of Present illness Narrative* Encounter Date Complaint History Of Prese nt Illness laceration Onset was 2 week s ago. Severity level is moderate-severe. The problem is worsening. The location of the wound is right lower leg. Comments: States she fell a couple weeks ago. laceration Comments: compla ining of small laceration to right lower leg that happened 2.5 weeks ago when she fell watering her plants. Has treated with antibiotic ointment and peroxide but the wound is not healing. Last night her foot was swollen and throbbing so she decided to come in. states the wound is red and painful. Ankles swell sometimes but her right foot is much more swollen. problem Issues with vari cose veins for 44 years. Worsened over the years.States would like to be referred to get varicose veins treated. Legs are heavy and painful.Has vascular clinic in [place] she would like to be referred to for treatment. Knows someone who went there and had great success. medicare preventive The patient does not need help with activities of daily living. The patient is not at risk for falls. The patient has fallen 1 times in the last year. The fall(s) resulted in injury. Details: tripped over solar light cut leg to bone. Relevant history is positive for alcohol use. Relevant history is negative for tobacco use and passive vaping exposure. medicare preventive (comments) 1 . Abdominal hernia notes this has been getting larger will reassess the area2. Hypertension stable on current medications3. OA has trouble in the coldcontinue current medications4. Health care maintenance due for colon cancer screening in 2023will order mammogram; passed cognitive exam and will reassess labs; declines pneumonia shot chronic conditions refills pt requests refi lls on lasix and spironolactone chronic conditions (comments) 1. Hand OA patient notes she is going to go to [place] for this; just had surgery [facility] the [facility]. Hypertension stable; continue current medications3.Hypokalemia pt is having trouble taking the pills will check potassium today; eats alot of vegetables may consider a liquid supplement hand pain It occurs consta ntly and is worsening. Location: bilateral hand. Pertinent negatives include bruising, crepitus and decreased mobility. knee pain It occurs consta ntly and is worsening. Location: bilateral knee. Pertinent negatives include bruising, crepitus and decreased mobility. medicare preventive The patient does not need help with activities of daily living. The patient is not at risk for falls. The patient has not fallen in the last year. The fall(s) did not result in injury. Relevant history is positive for alcohol use. Relevant history is negative for tobacco use and passive vaping exposure. problem The symptoms are reported as being moderate. The symptoms occur randomly. She states the symptoms are acute and are unchanged. kirstin seen has a bad cold, ears, and throat, has a lot of mucus symptoms over 2 weeks shortness of breath Pertinent ne gatives include anxiety, fatigue, fever, night sweats and wheezing. medicare preventive The patient does not need help with activities of daily living. The patient is not at risk for falls. The patient has not fallen in the last year. The fall(s) did not result in injury. Relevant history is negative for tobacco use. Patient is a former alcohol user. Rash The patient pres ents for Rash. Pertinent negatives include bleeding, fatigue, pruritus and scaling. edema The symptoms are reported as being moderate. The symptoms occur randomly. She states the symptoms are chronic and are stable. NEW PATIENT knee pain It occurs interm ittently and is fluctuating. Location: bilateral knee. Associated symptoms include decreased mobility. Pertinent negatives include bruising and crepitus. [facility] Work Phone: [phone] Instructions* Date Instruction Additional Infor alvin Counseled on weight reduction Counseled on dietary changes [facility] Work Phone: consult note* Clinical Note Date No Information [facility] Work Phone: Discharge summary* Clinical Note Date No Information [facility] Work Phone: Discharge summary Author [facility] December 30, 2023 1:45pm Note Date/Time December 30, 2023 1:3 0pm [facility] Medical Records Department [address] [place] [address] Discharge Summary 12/30/23 1330 MR#: [id number] Acct: [id number] Name: MARY ALICE GA Rep #:[id number] : 1950 73 From: [facility] PCP: Dr. Khanh Rodriguez MD Status:A DM IN [facility] Prov[facility] Date of Admission: 12/27/23 Date of Discharge: 12/30/23 Primary Care Physician: Dr. 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 Acute upper GI bleed likely due to esophageal variceal bleed/PHG: Patient isbeing admitted in PCU. Heart rate and blood pressure are controlled. No hypoxia. Patient is clinically dehydrated. She is being discharged with IV fluid normal saline, strict intake and output. H&H 10.1/29.7%.Baseline H&H 11.6/31% H&H every 6 hourly. IV PPI drip after bolus, octreotide drip and ceftriaxone. GI consulted. Plan for EGD tomorrow a.m. 12/27: Verbally discussed with Dr. Davila. Patient has esophageal varices and those were banded. Official report is still pending. 12/28: Hemodynamically patient remained stable blood pressure went up to 163/87 therefore octreotide drip discontinued. Pantoprazole PPI IV infusion changed tobolus 40 mill every 12 hourly 12/29: The prescription given for pantoprazole 40 mg every 12 hourly 2-month supply. Follow-up in GI clinic in 1 month 2. Acute blood loss anemia secondary to severe upper GI bleed: Patient baselinehemoglobin is around 11 to 12 g. She was admitted with hemoglobin 10.1 and dropped to 7.9 g/dL. IV fluid half-normal saline with 40 mEq of KCl at 100 mill per hour. Patient blood pressure is systolic 120s. Repeat H&H came 8.2/24.7% therefore no indication for PRBC transfusion yet. Hemodynamically blood pressure 127/64 heart rate 67. 12/28: H&H 8.2/24.3%. IV iron infusion ordered 12/29: Prescription given for ferrous sulfate and vitamin C given. Electrolyte abnormality: Hypokalemia and hypomagnesemia: Patient on his spironolactone at home. Continued. IV magnesium sulfate ordered. 12/28: Repeat labs shows magnesium normal, phosphorus normal and potassium 4.3 normal therefore electrolyte abnormality resolved. 3. Decompensated alcoholic cirrhosis with ascites, portal hypertension, varicealbleed and jaundice: Liver chemistry reviewed. Platelet count 102,000. Liver chemistry shows AST 57 alkaline phosphatase 218, albumin 2.6. MELD sodium score18 with INR 1.3, creatinine 0.71, sodium 138 and TB 7.4, direct 4.5. Estimated 90-day mortality 3 to 4%. 12/27: Liver chemistry shows improvement in bilirubin, T. bili 5.6, direct 3.92. AST ALT ratio, 2:1. Hypoalbuminemia. 12/28: Liver chemistry shows further improvement in total bilirubin direct bilirubin. 12/29: Liver chemistry shows improvement in total and direct bilirubin 3. Chronic HFpEF with moderately severe pulmonary hypertension: 2D echo in November 2023 EF 65%, normal RV size and systolic function. LA mildly enlarged. RVSP 50 mL trivial TR suggestive of moderate pulmonary hypertension. Patient onfurosemide and spironolactone at home which is held. 12/28: Furosemide spironolactone resumed. 4. Hypertension, history of right leg non pressure ulcer, right GSV chronic venous insufficiency. Patient had right GSV successful ablation in the past byDr. Galaviz, no acute issues. BP normal. 5. Chronic GERD, hypokalemia, osteoporosis and history of breast cancer: Patient on anastrozole.Patient follows [facility] [place]. On alendronate continued Discharge medication reconciliation done. Discharge follow-up instructions completed. Discharge process discussed with the patient and all questions wereanswered to patient's satisfaction. Follow with PCP in 1 to 2 weeks Total time spent, exact 35 minutes on discharge meds reconciliation, examination, coordination of care with nurses and ancillary staff, review of imaging and blood test and discussion with the patient on follow-up instructions. Living will/advanced directive/end of life care: Patient does not living will or advanced directive. Her is power of admitted attorneys for health. After discussion of benefits/risks procedures involved with full code, DNR CC arrest and DNR CC, the patient opted for full code. Patient does want artificial life support including intubation, tube feed, ventilator and/chest compression, central venous catheter, vasopressor and DC shock if needed Clinical Impression(s) from Imaging Studies Abdomen/Pelvis CT 12/27/23 10:14 IMPRESSION: Findings suggestive of cirrhosis. Fatty infiltration of the liver. Small gallstones with mild thickening of the gallbladder wall. Small amount of ascites. Sigmoid diverticulosis. Small umbilical hernia containing fat. Medications at Discharge Home Medications compress.stocking,knee,reg,lrg #2 ea 05/09/23 acetaminophen 500 mg capsule 500 mg PO Q6H PRN pain 06/08/23 anastrozole 1 mg tablet 1 mg PO DAILY #90 tabs 10/19/23 potassium chloride 20 mEq tablet,extended release(part/cryst) 20 meq PO BID SUPPLEMENT #90 tabs 11/03/23 furosemide 40 mg tablet 40 mg PO DAILY DIURETIC #30 tabs 12/15/23 alendronate 70 mg tablet (Fosamax) 70 mg PO MO JOINT SUPPORT 12/27/23 calcium carbonate 600 mg-vitamin D3 5 mcg (200 unit) tablet (Calcium 600 + D(3))1 tab PO BID 12/27/23 nadolol 20 mg tablet 20 mg PO DAILY BP 12/27/23 spironolactone 50 mg tablet 50 mg PO DAILY 12/27/23 ascorbic acid (vitamin C) 500 mg tablet 500 mg PO BID #60 tabs 12/30/23 ferrous sulfate 325 mg (65 mg iron) tablet (FeroSul) 325 mg PO DAILY #30 tabs 12/30/23 lactulose 10 gram/15 mL (15 mL) oral solution 10 g (15 mL) PO TID #1,440 mL 12/30/23 pantoprazole 40 mg tablet,delayed release 40 mg PO BIDCM GERD 30 days #60 tabs 12/30/23 Physical Exam Narrative Seen and examined. Patient fatigue improved. Patient can walk in the hallway and does not meet criteria for SNF. No further GI patient had EGD in the morning and esophageal varices were banded. Patient being discharged to home health. Physical exam General: Alert, Oriented x3, Cooperative HEENT: Icterus present/jaundice. Atraumatic, PERRLA, EOMI, Normocephalic Oral: Oral mucosa very dry. No Gingival or Mucosal Lesions/ Ulcerations Neck: Supple, No JVD, Negative Carotid Bruits Chest wall/Lungs: Air entry diminished in bilateral lung bases. No crepitation/rhonchi Cardiovascular: Regular rate, Regular Rhythm, Normal S1, Normal S2, No M/G/R Abdomen: Bowel Sounds Present, Soft, mild distention. Shifting dullness present. Mild ascites. No tenderness. : No dysuria. No renal angle tenderness. No suprapubic tenderness. Extremities: No edema, Capillary Refill Less than 3 Seconds Skin: No rashes, No breakdown Musculoskeletal: No Tenderness to Palpation of Joints or Extremities. ROM full Neurological: Cranial nerves II-XII grossly intact, DTR 2+/4. No acute focal neurological deficit. Psych/Mental Status: Flat affect, anxiety Weight / BMI Weight Weight: 159 lb 13.362 oz Body Mass Index (BMI) 27.4 ABG / Lab / Microbiology Data 12/29/23 05:52 12/30/23 05:45 Laboratory: Laboratory Results - last 24 hr 12/30/23 05:45: Sodium 134 L, Potassium 3.8, Chloride 109 H, Carbon Dioxide 21.0, Anion Gap 4 L, BUN 14, Creatinine 0.55, Estim Creat Clear Calc 62.03, Est GFR (MDRD) Af Amer 140, Est GFR (MDRD) Non-Af 116, BUN/Creatinine Ratio 25.5 H, Glucose 88, Calcium 8.2 L, Total Bilirubin 4.20 H, Direct Bilirubin 3.14 H, AST 94 H, ALT 35, Alkaline Phosphatase 185 H, Total Protein 5.1 L, Albumin 2.2 L, Globulin 2.9 Microbiology: Microbiology 12/27/23 09:39 Stool Stool Occult Blood ([facility]) - Final Occult Blood Positive D/C Instructions Discharge Diet: 6 Cup Fluid Restriction and 2000 mg Sodium Diet Weight Bearing Status: Weight bearing as tolerated Call your doctor if you observe: Fever of 101 or Higher, Coldness, Increased Pain, Numbness or Tingling, Change in Color, Inability to urinate, Inability to have a bowel movement, Using more than 1 pad per hour, Shortness of breath, Dizziness, Fainting spells, Swelling in the ankles, Chest pain, Prolonged hiccupping, Increased palpitations (irregular heartbeat) and Calf discomfort When: IN 2 WEEKS Meaningful Use Info Meaningful Use Meaningful Use Diagnoses (Choose all that apply): None applicable Ischemic Stroke Statin Dosing Therapy Reference: STATIN DOSE THERAPY REFERENCE: * Patients > 75 years receive moderate or high dose statin therapy. * Patients 75 years or YOUNGER should receive HIGH intensity statin dose unless contraindicated. You will be required to document reason for non-treatment if statin daily dose does not meet guidelines. HIGH DOSE STATIN THERAPY DAILY Atorvastatin > than or = to 40 mg Rosuvastatin > than or = to 20 mg Amlodipine + Atorvastatin > than or = to 2.5/40 mg Ezetimibe + Simvastatin 10/80 mg Simvastatin 80mg Discharge Plan Admission Admit Date/Time: 12/27/23 12:32 Primary Reason for Your Visit: Upper GI bleed from esophageal varices bleed, decompensated cirrhosis Attending Provider: Harrison Roper Primary Care Provider: Khanh Rodriguez Discharge Orders/Prescriptions Prescriptions: New lactulose 10 gram/15 mL (15 mL) solution 10 g PO TID Qty: 1440 0RF Rx Instructions: Hold for more than 2 bowel movements per day. ferrous sulfate [FeroSul] 325 mg (65 mg iron) tablet 325 mg PO DAILY Qty: 30 2RF ascorbic acid (vitamin C) 500 mg tablet 500 mg PO BID Qty: 60 2RF Continued acetaminophen 500 mg capsule 500 mg PO Q6H PRN (Reason: pain) spironolactone 50 mg tablet 50 mg PO DAILY calcium carbonate-vitamin D3 [Calcium 600 + D(3)] 600 mg-5 mcg (200 unit) tablet 1 tab PO BID alendronate [Fosamax] 70 mg tablet 70 mg PO MO nadolol 20 mg tablet 20 mg PO DAILY (DME) compress.stocking,knee,reg,lrg Misc See Rx Instructions .MEDSUPPLY Qty: 2 1RF Rx Instructions: wear daily for venous insufficiency 20-30 mmHg anastrozole 1 mg tablet 1 mg PO DAILY Qty: 90 1RF potassium chloride 20 mEq tablet,ER particles/crystals 20 meq PO BID Qty: 90 1RF furosemide 40 mg tablet 40 mg PO DAILY Qty: 30 0RF Changed pantoprazole 40 mg tablet,delayed release (DR/EC) 40 mg PO BIDCM 30 Days Qty: 60 1RF Referrals / Follow Up: Khanh Rodriguez MD [Primary Care Provider] - Friend,DO Johny [Med Staff - Active Staff] - Within 1 Month Disposition Disposition (needs filled in before D/C Order can be placed): Home Health Service Charges/Coding Visit Charges Inpatient E&M: 60273 Disch Hosp >30min 12/30/23 1345 <Electronically signed by Harrison Roper MD> Cosigner Signature (if applicable): CC: Dr. Khanh Rodriguez MD; Dr. Harrison Roper MD~ Signed [facility] Work Phone: Evaluation note* Type Assessment Date No Information [facility] Work Phone: Evaluation noteNo assessment information available [facility] Work Phone: Evaluation note* Diagnosis Onset Date Resolution Status Age-related physical debility acute Hypotension acute Post-menopausal acute GERD (gastroesophageal reflux disease) chronic Left hip pain chronic 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 Vertigo chronic [facility] Work Phone: Evaluation note* Diagnosis Onset Date Resolution Status Age-related physical debility acute Hypotension acute Post-menopausal acute GERD (gastroesophageal reflux disease) chronic Left hip pain chronic 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 Vertigo chronic Hyponatremia acute Osteoporosis acute [facility] Work Phone: Evaluation note* Diagnosis Onset Date Resolution Status Age-related physical debility acute Hypotension acute Post-menopausal acute GERD (gastroesophageal reflux disease) chronic Left hip pain chronic 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 Vertigo chronic Hyponatremia acute Osteoporosis acute Hyponatremia acute Osteoporosis acute Dermatitis chronic GERD (gastroesophageal reflux disease) chronic Hypertension chronic [facility] Work Phone: Evaluation note* Diagnosis Pain- Primary [facility] Onset Date Resolution Status Cellulitis of right leg acut e Screening for thyroid disorder acute Ulcer of right leg acute Dermatitis chronic Hypertension chronic Osteoporosis chronic Edema of both lower extremities acute Ulcer of right leg acute 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 [facility] Work Phone: Evaluation note* Diagnosis Onset Date Resolution Status Cellulitis of right leg acut e Screening for thyroid disorder acute Ulcer of right leg acute Dermatitis chronic Hypertension chronic Osteoporosis chronic Edema of both lower extremities acute Ulcer of right leg acute 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 Cellulitis acute Edema of both lower extremities acute Non-pressure ulcer of right lower extremity acute Nonhealing nonsurgical wound acute Ulcer of right leg acute 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 [facility] Work Phone: Evaluation note* Diagnosis Onset Date Resolution Status Cellulitis of right leg acut e Screening for thyroid disorder acute Ulcer of right leg acute Dermatitis chronic Hypertension chronic Osteoporosis chronic Edema of both lower extremities acute Ulcer of right leg acute 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 Cellulitis acute Edema of both lower extremities acute Non-pressure ulcer of right lower extremity acute Nonhealing nonsurgical wound acute Ulcer of right leg acute 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 Cellulitis acute Edema of both lower extremities acute Non-pressure ulcer of right lower extremity acute Nonhealing nonsurgical wound acute Ulcer of right leg acute 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 [facility] Work Phone: Evaluation note* Diagnosis Onset Date Resolution Status Cellulitis of right leg acut e Screening for thyroid disorder acute Ulcer of right leg acute Dermatitis chronic Hypertension chronic Osteoporosis chronic Edema of both lower extremities acute Ulcer of right leg acute 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 Cellulitis acute Edema of both lower extremities acute Non-pressure ulcer of right lower extremity acute Nonhealing nonsurgical wound acute Ulcer of right leg acute 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 Cellulitis acute Edema of both lower extremities acute Non-pressure ulcer of right lower extremity acute Nonhealing nonsurgical wound acute Ulcer of right leg acute 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 Cellulitis acute Edema of both lower extremities acute Non-pressure ulcer of right lower extremity acute Ulcer of right leg acute 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 [facility] Work Phone: Evaluation note* Diagnosis Onset Date Resolution Status Cellulitis of right leg acut e Screening for thyroid disorder acute Ulcer of right leg acute Dermatitis chronic Hypertension chronic Osteoporosis chronic Ulcer of right leg acute Edema of both lower extremities chronic 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 Cellulitis acute Non-pressure ulcer of right lower extremity acute Nonhealing nonsurgical wound acute Ulcer of right leg acute Edema of both lower extremities chronic 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 Cellulitis acute Non-pressure ulcer of right lower extremity acute Nonhealing nonsurgical wound acute Ulcer of right leg acute Edema of both lower extremities chronic 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 Cellulitis acute Non-pressure ulcer of right lower extremity acute Ulcer of right leg acute Edema of both lower extremities chronic 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 Preoperative evaluation to r ule out surgical contraindication acute Edema of both lower extremities chronic Hypertension chronic Hyponatremia chronic Squamous cell skin cancer ch ronic Umbilical hernia chronic [facility] Work Phone: Evaluation note* Diagnosis Onset Date Resolution Status Cellulitis of right leg acut e Screening for thyroid disorder acute Ulcer of right leg acute Dermatitis chronic Hypertension chronic Osteoporosis chronic Ulcer of right leg acute Edema of both lower extremities chronic 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 Cellulitis acute Non-pressure ulcer of right lower extremity acute Nonhealing nonsurgical wound acute Ulcer of right leg acute Edema of both lower extremities chronic 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 Cellulitis acute Non-pressure ulcer of right lower extremity acute Nonhealing nonsurgical wound acute Ulcer of right leg acute Edema of both lower extremities chronic 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 Cellulitis acute Non-pressure ulcer of right lower extremity acute Ulcer of right leg acute Edema of both lower extremities chronic 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 Preoperative evaluation to r ule out surgical contraindication acute Edema of both lower extremities chronic Hypertension chronic Hyponatremia chronic Squamous cell skin cancer ch ronic Umbilical hernia chronic Carotid stenosis, right acut e Ulcer of right leg acute Varicose veins of left lower extremity acute Edema of both lower extremities chronic [facility] Work Phone: Evaluation note* Diagnosis Onset Date Resolution Status Cellulitis of right leg acut e Screening for thyroid disorder acute Ulcer of right leg acute Dermatitis chronic Hypertension chronic Osteoporosis chronic Ulcer of right leg acute Edema of both lower extremities chronic 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 Cellulitis acute Non-pressure ulcer of right lower extremity acute Nonhealing nonsurgical wound acute Ulcer of right leg acute Edema of both lower extremities chronic 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 Cellulitis acute Non-pressure ulcer of right lower extremity acute Nonhealing nonsurgical wound acute Ulcer of right leg acute Edema of both lower extremities chronic 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 Cellulitis acute Non-pressure ulcer of right lower extremity acute Ulcer of right leg acute Edema of both lower extremities chronic 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 Preoperative evaluation to r ad out surgical contraindication acute Edema of both lower extremities chronic Hypertension chronic Hyponatremia chronic Squamous cell skin cancer ch ronic Umbilical hernia chronic Carotid stenosis, right acut e Ulcer of right leg acute Varicose veins of left lower extremity acute Edema of both lower extremities chronic Abnormal mammogram of left breast acute Carotid stenosis, right acut e Cirrhosis acute Left breast lump acute Squamous cell skin cancer ch ronic Umbilical hernia chronic Back pain noneactive [facility] Work Phone: Evaluation note* Diagnosis Onset Date Resolution Status Ulcer of right leg acute Edema of both lower extremities chronic 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 Cellulitis acute Non-pressure ulcer of right lower extremity acute Nonhealing nonsurgical wound acute Ulcer of right leg acute Edema of both lower extremities chronic 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 Cellulitis acute Non-pressure ulcer of right lower extremity acute Nonhealing nonsurgical wound acute Ulcer of right leg acute Edema of both lower extremities chronic 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 Cellulitis acute Non-pressure ulcer of right lower extremity acute Ulcer of right leg acute Edema of both lower extremities chronic 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 Preoperative evaluation to marino duong out surgical contraindication acute Edema of both lower extremities chronic Hypertension chronic Hyponatremia chronic Squamous cell skin cancer ch ronic Umbilical hernia chronic Carotid stenosis, right acut e Ulcer of right leg acute Varicose veins of left lower extremity acute Edema of both lower extremities chronic Abnormal mammogram of left breast acute Carotid stenosis, right acut e Cirrhosis acute Left breast lump acute Squamous cell skin cancer ch ronic Umbilical hernia chronic Back pain noneactive [facility] Work Phone: Evaluation note* Diagnosis Onset Date Resolution Status Cellulitis acute Non-pressure ulcer of right lower extremity acute Nonhealing nonsurgical wound acute Ulcer of right leg acute Edema of both lower extremities chronic 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 Cellulitis acute Non-pressure ulcer of right lower extremity acute Nonhealing nonsurgical wound acute Ulcer of right leg acute Edema of both lower extremities chronic 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 Cellulitis acute Non-pressure ulcer of right lower extremity acute Ulcer of right leg acute Edema of both lower extremities chronic 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 Preoperative evaluation to r ad out surgical contraindication acute Edema of both lower extremities chronic Hypertension chronic Hyponatremia chronic Squamous cell skin cancer ch ronic Umbilical hernia chronic Carotid stenosis, right acut e Ulcer of right leg acute Varicose veins of left lower extremity acute Edema of both lower extremities chronic Abnormal mammogram of left breast acute Carotid stenosis, right acut e Cirrhosis acute Left breast lump acute Squamous cell skin cancer ch ronic Umbilical hernia chronic Back pain noneactive Breast cancer acute Non-pressure ulcer of right lower extremity acute 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 Venous ulcer of ankle acute Breast cancer acute Carotid stenosis, right acut e Cirrhosis acute Umbilical hernia chronic [facility] Work Phone: Evaluation note* Diagnosis Onset Date Resolution Status Cellulitis acute Non-pressure ulcer of right lower extremity acute Nonhealing nonsurgical wound acute Ulcer of right leg acute Edema of both lower extremities chronic 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 Cellulitis acute Non-pressure ulcer of right lower extremity acute Ulcer of right leg acute Edema of both lower extremities chronic 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 Preoperative evaluation to r ad out surgical contraindication acute Edema of both lower extremities chronic Hypertension chronic Hyponatremia chronic Squamous cell skin cancer ch ronic Umbilical hernia chronic Carotid stenosis, right acut e Ulcer of right leg acute Varicose veins of left lower extremity acute Edema of both lower extremities chronic Abnormal mammogram of left breast acute Carotid stenosis, right acut e Cirrhosis acute Left breast lump acute Squamous cell skin cancer ch ronic Umbilical hernia chronic Back pain noneactive Breast cancer acute Non-pressure ulcer of right lower extremity acute 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 Venous ulcer of ankle acute Breast cancer acute Carotid stenosis, right acut e Cirrhosis acute Umbilical hernia chronic Breast cancer acute Breast cancer acute Breast cancer acute Breast cancer acute Non-pressure ulcer of right lower extremity acute Nonhealing nonsurgical wound acute 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 Venous ulcer of ankle acute [facility] Work Phone: Evaluation note* Diagnosis Onset Date Resolution Status Breast cancer acute Breast cancer acute Breast cancer acute Breast cancer acute Non-pressure ulcer of right lower extremity acute Nonhealing nonsurgical wound acute 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 Venous ulcer of ankle acute Breast cancer acute Breast cancer acute Breast cancer acute Breast cancer acute Encounter for education acut e Non-pressure ulcer of right lower extremity acute Nonhealing nonsurgical wound acute 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 Venous ulcer of ankle acute 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 extremity acute Nonhealing nonsurgical wound acute 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 Venous ulcer of ankle acute 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 extremity acute Nonhealing nonsurgical wound acute 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 Venous ulcer of ankle acute 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 [facility] Work Phone: Evaluation note* Diagnosis Onset Date Resolution Status Breast cancer acute Breast cancer acute Non-pressure ulcer of right lower extremity acute Nonhealing nonsurgical wound acute 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 Venous ulcer of ankle acute Breast cancer acute Breast cancer acute Breast cancer acute Breast cancer acute Encounter for education acut e Non-pressure ulcer of right lower extremity acute Nonhealing nonsurgical wound acute 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 Venous ulcer of ankle acute 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 extremity acute Nonhealing nonsurgical wound acute 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 Venous ulcer of ankle acute 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 extremity acute Nonhealing nonsurgical wound acute 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 Venous ulcer of ankle acute 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 extremity acute Nonhealing nonsurgical wound acute 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 Venous ulcer of ankle acute [facility] Work Phone: Evaluation note* Diagnosis Onset Date Resolution Status Breast cancer acute Non-pressure ulcer of right lower extremity acute Nonhealing nonsurgical wound acute 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 Venous ulcer of ankle acute Breast cancer acute Breast cancer acute Breast cancer acute Breast cancer acute Encounter for education acut e Non-pressure ulcer of right lower extremity acute Nonhealing nonsurgical wound acute 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 Venous ulcer of ankle acute 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 extremity acute Nonhealing nonsurgical wound acute 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 Venous ulcer of ankle acute 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 extremity acute Nonhealing nonsurgical wound acute 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 Venous ulcer of ankle acute 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 extremity acute Nonhealing nonsurgical wound acute 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 Venous insufficiency of right lower extremity acute Venous ulcer of ankle acute 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 [facility] Work Phone: Evaluation note* Diagnosis Onset Date Resolution Status Breast cancer acute Non-pressure ulcer of right lower extremity acute Nonhealing nonsurgical wound acute 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 Venous ulcer of ankle acute Breast cancer acute Breast cancer acute Breast cancer acute Breast cancer acute Encounter for education acut e Non-pressure ulcer of right lower extremity acute Nonhealing nonsurgical wound acute 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 Venous ulcer of ankle acute 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 extremity acute Nonhealing nonsurgical wound acute 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 Venous ulcer of ankle acute 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 extremity acute Nonhealing nonsurgical wound acute 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 Venous ulcer of ankle acute 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 extremity acute Nonhealing nonsurgical wound acute 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 Venous insufficiency of right lower extremity acute Venous ulcer of ankle acute 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 Venous insufficiency of right lower extremity acute [facility] Work Phone: Evaluation note* Diagnosis Onset Date Resolution Status Breast cancer acute Breast cancer acute Breast cancer acute Breast cancer acute Encounter for education acut e Non-pressure ulcer of right lower extremity acute Nonhealing nonsurgical wound acute 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 Venous ulcer of ankle acute 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 extremity acute Nonhealing nonsurgical wound acute 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 Venous ulcer of ankle acute 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 extremity acute Nonhealing nonsurgical wound acute 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 Venous ulcer of ankle acute 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 Venous insufficiency of right lower extremity acute Non-pressure ulcer of right lower extremity acute Nonhealing nonsurgical wound acute 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 Venous insufficiency of right lower extremity acute Venous ulcer of ankle acute 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 [facility] Work Phone: Evaluation note* Diagnosis Onset Date Resolution Status Breast cancer acute Breast cancer acute Breast cancer acute Breast cancer acute Encounter for education acut e Non-pressure ulcer of right lower extremity acute Nonhealing nonsurgical wound acute 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 Venous ulcer of ankle acute 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 extremity acute Nonhealing nonsurgical wound acute 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 Venous ulcer of ankle acute 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 extremity acute Nonhealing nonsurgical wound acute 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 Venous ulcer of ankle acute 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 Venous insufficiency of right lower extremity chronic Non-pressure ulcer of right lower extremity acute Nonhealing nonsurgical wound acute 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 Venous ulcer of ankle acute 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 Venous insufficiency of right lower extremity chronic 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 Venous insufficiency of right lower extremity chronic Breast cancer acute Dyspnea chronic GERD (gastroesophageal reflux disease) chronic Hyponatremia chronic Osteoporosis chronic Venous insufficiency of right lower extremity chronic [facility] Work Phone: Evaluation note* Diagnosis Onset Date Resolution Status Breast cancer acute Breast cancer acute Breast cancer acute Encounter for education acut e Non-pressure ulcer of right lower extremity acute Nonhealing nonsurgical wound acute 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 Venous ulcer of ankle acute 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 extremity acute Nonhealing nonsurgical wound acute 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 Venous ulcer of ankle acute 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 extremity acute Nonhealing nonsurgical wound acute 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 Venous ulcer of ankle acute 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 Venous insufficiency of right lower extremity chronic Non-pressure ulcer of right lower extremity acute Nonhealing nonsurgical wound acute 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 Venous ulcer of ankle acute 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 Venous insufficiency of right lower extremity chronic 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 Venous insufficiency of right lower extremity chronic Breast cancer acute Dyspnea chronic GERD (gastroesophageal reflux disease) chronic Hyponatremia chronic Osteoporosis chronic Venous insufficiency of right lower extremity chronic [facility] Work Phone: Evaluation note* Diagnosis Onset Date Resolution Status Breast cancer acute Breast cancer acute Encounter for education acut e Non-pressure ulcer of right lower extremity acute Nonhealing nonsurgical wound acute 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 Venous ulcer of ankle acute 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 extremity acute Nonhealing nonsurgical wound acute 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 Venous ulcer of ankle acute 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 extremity acute Nonhealing nonsurgical wound acute 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 Venous ulcer of ankle acute 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 Venous insufficiency of right lower extremity chronic Non-pressure ulcer of right lower extremity acute Nonhealing nonsurgical wound acute 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 Venous ulcer of ankle acute 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 Venous insufficiency of right lower extremity chronic 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 Venous insufficiency of right lower extremity chronic Breast cancer acute Dyspnea chronic GERD (gastroesophageal reflux disease) chronic Hyponatremia chronic Osteoporosis chronic Venous insufficiency of right lower extremity chronic Jaundice acute Non-pressure ulcer of right lower extremity acute Nonhealing nonsurgical wound acute 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 Venous ulcer of ankle acute 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 Venous insufficiency of right lower extremity chronic Alcoholic acute Diarrhea acute [facility] Work Phone: Evaluation note* Diagnosis Onset Date Resolution Status Non-pressure ulcer of right lower extremity acute Nonhealing nonsurgical wound acute 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 Venous ulcer of ankle acute 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 extremity acute Nonhealing nonsurgical wound acute 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 Venous ulcer of ankle acute 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 Venous insufficiency of right lower extremity chronic Non-pressure ulcer of right lower extremity acute Nonhealing nonsurgical wound acute 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 Venous ulcer of ankle acute 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 Venous insufficiency of right lower extremity chronic 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 Venous insufficiency of right lower extremity chronic Breast cancer acute Dyspnea chronic GERD (gastroesophageal reflux disease) chronic Hyponatremia chronic Osteoporosis chronic Venous insufficiency of right lower extremity chronic Alcoholic acute Diarrhea acute Jaundice acute Non-pressure ulcer of right lower extremity acute Nonhealing nonsurgical wound acute 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 Venous ulcer of ankle acute 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 Venous insufficiency of right lower extremity chronic [facility] Work Phone: Evaluation note* Diagnosis Onset Date Resolution Status Non-pressure ulcer of right lower extremity acute Nonhealing nonsurgical wound acute 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 Venous ulcer of ankle acute 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 extremity acute Nonhealing nonsurgical wound acute 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 Venous ulcer of ankle acute 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 Venous insufficiency of right lower extremity chronic Non-pressure ulcer of right lower extremity acute Nonhealing nonsurgical wound acute 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 Venous ulcer of ankle acute 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 Venous insufficiency of right lower extremity chronic 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 Venous insufficiency of right lower extremity chronic Breast cancer acute Dyspnea chronic GERD (gastroesophageal reflux disease) chronic Hyponatremia chronic Osteoporosis chronic Venous insufficiency of right lower extremity chronic Alcoholic acute Diarrhea acute Jaundice acute Non-pressure ulcer of right lower extremity acute Nonhealing nonsurgical wound acute 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 Venous ulcer of ankle acute 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 Venous insufficiency of right lower extremity chronic Acute upper GI bleeding acut e Ascites acute Decompensated hepatic cirrhosis acute Jaundice acute Thrombocytopenia acute [facility] Work Phone: Evaluation note* Diagnosis Onset Date Resolution Status 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 extremity acute Nonhealing nonsurgical wound acute 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 Venous ulcer of ankle acute 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 Venous insufficiency of right lower extremity chronic Non-pressure ulcer of right lower extremity acute Nonhealing nonsurgical wound acute 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 Venous ulcer of ankle acute 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 Venous insufficiency of right lower extremity chronic 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 Venous insufficiency of right lower extremity chronic Breast cancer acute Dyspnea chronic GERD (gastroesophageal reflux disease) chronic Hyponatremia chronic Osteoporosis chronic Venous insufficiency of right lower extremity chronic Alcoholic acute Diarrhea acute Jaundice acute Non-pressure ulcer of right lower extremity acute Nonhealing nonsurgical wound acute 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 Venous ulcer of ankle acute 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 Venous insufficiency of right lower extremity chronic Acute upper GI bleeding acut e Ascites acute Decompensated hepatic cirrhosis acute Jaundice acute Thrombocytopenia acute [facility] Work Phone: Evaluation note* Diagnosis Onset Date Resolution Status 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 extremity acute Nonhealing nonsurgical wound acute 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 Venous ulcer of ankle acute 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 Venous insufficiency of right lower extremity chronic Non-pressure ulcer of right lower extremity acute Nonhealing nonsurgical wound acute 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 Venous ulcer of ankle acute 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 Venous insufficiency of right lower extremity chronic 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 Venous insufficiency of right lower extremity chronic Breast cancer acute Dyspnea chronic GERD (gastroesophageal reflux disease) chronic Hyponatremia chronic Osteoporosis chronic Venous insufficiency of right lower extremity chronic Alcoholic acute Diarrhea acute Jaundice acute Non-pressure ulcer of right lower extremity acute Nonhealing nonsurgical wound acute 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 Venous ulcer of ankle acute 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 Venous insufficiency of right lower extremity chronic Decompensated hepatic cirrhosis acute Jaundice acute Acute upper GI bleeding reso lved Alcoholic acute CHF (congestive heart failure) acute Non-pressure ulcer of right lower extremity acute Edema of both lower extremities chronic 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 Acute upper GI bleeding reso lved [facility] Work Phone: Evaluation note* Diagnosis Other malaise- [facility] [place] [facility] Diagnosis Other malaise- Primary [facility] [place] [facility]* Diagnosis Other malaise- Primary [facility] [place] [facility]* Diagnosis Other malaise- Primary [facility] [place] [facility]* Diagnosis Other malaise- [facility] [place] [facility] Diagnosis Venous ulcer (HCC) Chronic ulcer of unspecified site Venous (peripheral) insufficiency Unspecified venous (peripheral) insufficiency Secondary lymphedema Other lymphedema [facility] [place] [facility]* Diagnosis Venous ulcer (HCC)- Primary Chronic ulcer of unspecified site Venous (peripheral) insufficiency Unspecified venous (peripheral) insufficiency Secondary lymphedema Other lymphedema [facility] [place] [facility]* Diagnosis Other malaise- Primary [facility] [place] [facility]* Diagnosis Venous ulcer (HCC)- Primary Chronic ulcer of unspecified site Venous (peripheral) insufficiency Unspecified venous (peripheral) insufficiency Secondary lymphedema Other lymphedema [facility] [place] [facility]* Diagnosis Other malaise- [facility] Other [facility]ise- [facility] Diagnosis Venous ulcer (HCC)- Primary Chronic ulcer of unspecified site Venous (peripheral) insufficiency Unspecified venous (peripheral) insufficiency Secondary lymphedema Other lymphedema Symptomatic varicose veins of both lower extremities Varicose veins of lower extremities with other complications [facility] [place] [facility]* Diagnosis Venous ulcer (HCC)- Primary Chronic ulcer of unspecified site Venous (peripheral) insufficiency Unspecified venous (peripheral) insufficiency Secondary lymphedema Other lymphedema [facility] [place] [facility]* Diagnosis Other malaise- Primary [facility] [place] [facility]* Diagnosis S/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 Degenerative scoliosis [facility] [place] [facility]* Diagnosis Venous ulcer (HCC)- Primary Chronic ulcer of unspecified site Venous (peripheral) insufficiency Unspecified venous (peripheral) insufficiency Secondary lymphedema Other lymphedema [facility] [place] [facility]* Diagnosis Other malaise- Primary [facility] [place] [facility]* Diagnosis Venous ulcer (HCC)- Primary Chronic ulcer of unspecified site Venous (peripheral) insufficiency Unspecified venous (peripheral) insufficiency Secondary lymphedema Other lymphedema [facility] [place] [facility]* Diagnosis Other malaise- Primary [facility] [place] [facility]* Diagnosis Venous ulcer (HCC)- Primary Chronic ulcer of unspecified site Venous (peripheral) insufficiency Unspecified venous (peripheral) insufficiency Secondary lymphedema Other lymphedema [facility] [place] [facility]* Diagnosis Venous ulcer (HCC)- Primary Chronic ulcer of unspecified site Venous (peripheral) insufficiency Unspecified venous (peripheral) insufficiency Secondary lymphedema Other lymphedema [facility] [place] [facility]* Diagnosis Pain in left hip Pain in joint, pelvic region and thigh [facility] [place] [facility]* Diagnosis Venous (peripheral) insufficiency Unspecified venous (peripheral) insufficiency Symptomatic varicose veins of both lower extremities Varicose veins of lower extremities with other complications [facility] [place] [facility]* Diagnosis Venous ulcer (HCC)- Primary Chronic ulcer of unspecified site Venous (peripheral) insufficiency Unspecified venous (peripheral) insufficiency [facility] [place] [facility]* Diagnosis Venous ulcer (HCC)- Primary Chronic ulcer of unspecified site Venous (peripheral) insufficiency Unspecified venous (peripheral) insufficiency Secondary lymphedema Other lymphedema [facility] [place] [facility]* Diagnosis Venous ulcer (HCC)- Primary Chronic ulcer of unspecified site Venous (peripheral) insufficiency Unspecified venous (peripheral) insufficiency Secondary lymphedema Other lymphedema [facility] [place] [facility]* Diagnosis Degenerative scoliosis- Primary [facility] [place] [facility]* Diagnosis Venous ulcer (HCC)- Primary Chronic ulcer of unspecified site Venous (peripheral) insufficiency Unspecified venous (peripheral) insufficiency Secondary lymphedema Other lymphedema [facility] [place] [facility]* Diagnosis Venous ulcer (HCC)- Primary Chronic ulcer of unspecified site Venous (peripheral) insufficiency Unspecified venous (peripheral) insufficiency Secondary lymphedema Other lymphedema [facility] [place] [facility]* Diagnosis Venous ulcer (HCC)- Primary Chronic ulcer of unspecified site Venous (peripheral) insufficiency Unspecified venous (peripheral) insufficiency Secondary lymphedema Other lymphedema [facility] [place] [facility]* Diagnosis Venous ulcer (HCC)- Primary Chronic ulcer of unspecified site Venous (peripheral) insufficiency Unspecified venous (peripheral) insufficiency Secondary lymphedema Other lymphedema [facility] [place] [facility]* Diagnosis Venous ulcer (HCC)- Primary Chronic ulcer of unspecified site [facility] [place] [facility]* Diagnosis Venous ulcer (HCC)- Primary Chronic ulcer of unspecified site [facility] [place] [facility]* Diagnosis Venous ulcer of right lower extremity with varicose veins (HCC)- Primary Varicose veins of lower extremities with ulcer Venous ulcer (HCC) Chronic ulcer of unspecified site [facility] [place] [facility]* Diagnosis Venous ulcer (HCC)- Primary Chronic ulcer of unspecified site [facility] [place] [facility]* Diagnosis Venous ulcer (HCC)- Primary Chronic ulcer of unspecified site [facility] [place] [facility]* Diagnosis Pseudomonas aeruginosa infection- Primary Pseudomonas infection in conditions classified elsewhere and of unspecified site Venous ulcer (HCC) Chronic ulcer of unspecified site Alcoholic cirrhosis of liver with ascites (HCC) Alcoholic cirrhosis of liver Anxiety Anxiety state, unspecified Infection Unspecified infectious and parasitic diseases [facility] [place] [facility]* Diagnosis Venous ulcer (HCC)- Primary Chronic ulcer of unspecified site [facility] [place] [facility]* Diagnosis Abrasion of left lower leg with infection, initial encounter- Primary [facility] [place] [facility]* Diagnosis Venous ulcer (HCC)- Primary Chronic ulcer of unspecified site [facility] [place] [facility]* Diagnosis Venous ulcer (HCC)- Primary Chronic ulcer of unspecified site [facility] [place] [facility]* Diagnosis Pseudomonas aeruginosa infection- Primary Pseudomonas infection in conditions classified elsewhere and of unspecified site Venous ulcer (HCC) Chronic ulcer of unspecified site Alcoholic cirrhosis of liver with ascites (HCC) Alcoholic cirrhosis of liver Anxiety Anxiety state, unspecified Umbilical hernia without obstruction or gangrene Umbilical hernia without mention of obstruction or gangrene [facility] [place] [facility]* Diagnosis Venous ulcer (HCC)- Primary Chronic ulcer of unspecified site documented in this encounter [facility] note* Diagnosis Venous ulcer (HCC)- Primary Chronic ulcer of unspecified site [facility] [place] [facility]* Diagnosis Venous ulcer (HCC)- Primary Chronic ulcer of unspecified site [facility] [place] [facility]* Diagnosis Spinal stenosis of lumbar region with neurogenic claudication- Primary Spinal stenosis, lumbar region, with neurogenic claudication Low back pain, unspecified back pain laterality, unspecified chronicity, unspecified whether sciatica present documented [facility] [place] [facility]* Diagnosis Venous ulcer (HCC)- Primary Chronic ulcer of unspecified site documented in this encounter [facility] note* Diagnosis Venous stasis ulcer of calf with fat layer exposed, unspecified laterality, unspecified whether varicose veins present (HCC)- Primary Venous ulcer (HCC) Chronic ulcer of unspecified site [facility] Note Date No Information [facility] Work Phone: History and physical note Author [facility] December 27, 2023 1:37pm Note Date/Time December 27, 2023 1:3 1pm [facility] Medical Records Department [address] [place] [id number] H&P Exam - Hospitalist 12/27/23 1317 MR#: [id number] Acct: [id number] Name: MARY ALICE GA Rep #:[id number] : 1950 73 From: [facility] Hughes PCP: Dr. Khanh Rodriguez MD Status:A DM IN Location: [facility] [id number] HPI - General General Date of Admission: 12/27/23 Date of Service: 12/27/23 Chief Complaint: Black tarry stool since yesterday, jaundice noticed yesterday HPI Narrative MARY ALICE MIGDALIA, is a 73 F with history of alcoholic cirrhosis came to ED for black tarry stool started yesterday. She states she has been going from 8:30 AMto 8:30 PM every 15 to 20 minutes and felt very thirsty been drinking water and Gatorade. Patient also felt mildly dizzy and very weak. She noticed jaundiced yesterday but seems she has been jaundiced for some time. Patient also has abdominal swelling/edema ascites, gradually increasing for last 3 to 4 months. Mild generalized abdominal discomfort and tenderness but denies pain. No fever Patient is still drinking alcohol states of glass of wine with Sprite last drinklast Monday. She did not tell me exact frequency or pattern drinking alcohol even on asking. [facility] Medical History Abnormal mammogram of left breast Age-related physical debility Alcohol use Arthritis Back pain Bleeding ulcer Breast cancer Broken hip Cancer Carotid stenosis, right Cellulitis of right leg CHF (congestive heart failure) Cirrhosis Dermatitis Dyspnea Elevated liver enzymes Encounter for education GERD (gastroesophageal reflux disease) High cholesterol History of edema History of skin cancer History of ulceration Hx of staphylococcal infection Hypertension Hypokalemia Hyponatremia Hypotension Injury of back Left breast lump Left hip pain Non-smoker Open wound Osteoporosis Post-menopausal Preoperative evaluation to rule out surgical contraindication Pulmonary embolism Screening for thyroid disorder Skin cancer Squamous cell skin cancer Ulcer of right leg Umbilical hernia Varicose veins of both lower extremities Vertigo Wears glasses Home Medications pantoprazole 40 mg tablet,delayed release 40 mg PO DAILY GERD #90 tabs 04/22/22 [Rx Last Taken 12/25/23] compress.stocking,knee,reg,lrg #2 ea 05/09/23 [Rx Last Taken Unknown] acetaminophen 500 mg capsule 500 mg PO Q6H PRN pain 06/08/23 [History Last Taken Unknown] anastrozole 1 mg tablet 1 mg PO DAILY #90 tabs 10/19/23 [Rx Last Taken 12/25/23] potassium chloride 20 mEq tablet,extended release(part/cryst) 20 meq PO BID SUPPLEMENT #90 tabs 11/03/23 [Rx Last Taken 12/25/23] furosemide 40 mg tablet 40 mg PO DAILY DIURETIC #30 tabs 12/15/23 [Rx Last Taken 12/25/23] alendronate 70 mg tablet (Fosamax) 70 mg PO MO JOINT SUPPORT 12/27/23 [History Last Taken 12/25/23] calcium carbonate 600 mg-vitamin D3 5 mcg (200 unit) tablet (Calcium 600 + D(3))1 tab PO BID 12/27/23 [History Last Taken 12/25/23] nadolol 20 mg tablet 20 mg PO DAILY BP 12/27/23 [History Last Taken 12/25/23] spironolactone 50 mg tablet 50 mg PO DAILY 12/27/23 [History Last Taken 12/25/23] Allergy/AdvReac Type Severity Reaction Status Date / Time No Known Allergies Allergy Verified 12/27/23 08:47 Family History Mother Alzheimer disease Father Heart disease Diabetes Surgical History History of hysterectomy History of knee replacement History of left hip replacement History of left mastectomy Hx of tonsillectomy Status post Mohs surgery Social History Smoking Status: Never smoker alcohol intake: current substance use type: does not use ROS ROS Narrative Constitutional: Reports fatigue and weakness. No fever. HEENT: Reports systems reviewed and no addt'l complaints, except as documented Respiratory/Chest: No acute shortness of breath or respiratory distress or wheezing. Mild dyspnea on exertion from weakness CVS: No chest pain pressure or tightness Gastrointestinal: Black tarry stool for last 2 days. Mild abdominal discomfort. Jaundice Genitourinary: Denies burning urination or new urinary tract symptoms Musculoskeletal: Denies acute joint pain or limited range of motion. No acute injury Neurologic: Denies seizure-like symptoms. skin: No ulcer. No rash Endocrinology: Reports systems reviewed and no addt'l complaints, except as documented Hematologic/Lymphatic: Reports systems reviewed and no addt'l complaints, exceptas documented Rest 14 ROS are negative except as mentioned in HPI Vital Signs Vital Signs Vital Signs: 12/27/23 08:47 12/27/23 10:46 12/27/23 12:00 Temperature 96.7 F L 98 F 98.1 F Temperature Source Temporal Oral Oral Pulse Rate 88 86 82 Respiratory Rate 16 15 16 Blood Pressure 137/74 H 139/82 H 128/64 H Blood Pressure Mean 95 101 85 Pulse Ox 100 97 98 Oxygen Delivery Method Room Air Room Air Room Air Physical Exam Narrative General: Alert, Oriented x3, Cooperative HEENT: Icterus present. Atraumatic, PERRLA, EOMI, Normocephalic Oral: Oral mucosa very dry. No Gingival or Mucosal Lesions/ Ulcerations Neck: Supple, No JVD, Negative Carotid Bruits Chest wall/Lungs: Air entry diminished in bilateral lung bases. No crepitation/rhonchi Cardiovascular: Regular rate, Regular Rhythm, Normal S1, Normal S2, No M/G/R Abdomen: Bowel Sounds Present, Soft, mild distention. Shifting dullness present. Mild tenderness on left lower quadrant but no rebound tenderness. : No dysuria. No renal angle tenderness. No suprapubic tenderness. Extremities: No edema, Capillary Refill Less than 3 Seconds Skin: No rashes, No breakdown Musculoskeletal: No Tenderness to Palpation of Joints or Extremities. ROM full Neurological: Cranial nerves II-XII grossly intact, DTR 2+/4. No acute focal neurological deficit. Psych/Mental Status: Flat affect, anxiety Results Lab / Micro Data 12/27/23 09:30 12/27/23 09:30 Labs: Laboratory Results - last 24 hr 12/27/23 09:25: Urine Color Yellow, Urine Clarity Sl. Cloudy, Urine pH 7.0, Ur Specific [place] 1.005, Urine Protein 15 H, Urine Glucose (UA) Normal, Urine Ketones 5 H, Urine Occult Blood 10 H, Urine Nitrite Negative, Urine Bilirubin 1 H, Urine Urobilinogen 4 H, Ur Leukocyte Esterase 25 H, Urine RBC 0-5 SEEN, UrineWBC 0-5 SEEN, Ur Squamous Epith Cells 0 SEEN, Urine Bacteria 0 SEEN, Urine Mucus0 SEEN 12/27/23 09:30: WBC 8.4, RBC 2.78 L, Hgb 10.1 L, Hct 29.7 L, MCV 106.8 H, MCH 36.3 H, MCHC 34.0, RDW Std Deviation 50.0 H, RDW Coeff of Carlyle 12.8, Plt Count 102 L, MPV 9.5, Immature Gran % (Auto) 0.500, Neut % (Auto) 73.0 H, Lymph % (Auto) 19.2, Cr[place]enden % (Auto) 6.7, Eos % (Auto) 0.4, Baso % (Auto) 0.2, Absolute Neuts (auto) 6.1, Absolute Lymphs (auto) 1.61, Nucleated RBC % 0, PT 15.7 H, INR1.3, APTT 32.0, Sodium 138, Potassium 3.2 L, Chloride 100, Carbon Dioxide 30.0, Anion Gap 8, BUN 36 H, Creatinine 0.71, Est GFR (MDRD) Af Amer 104, Est GFR (MDRD) Non-Af 86, BUN/Creatinine Ratio 50.8 H, Glucose 99, Calcium 9.6, Total Bilirubin 7.40 H, Direct Bilirubin 4.50 H, AST 57 H, ALT 23, Alkaline Phosphatase 218 H, Total Protein 6.2 L, Albumin 2.6 L, Globulin 3.6, Lipase 31 Micro: Microbiology 12/27/23 09:39 Stool Stool Occult Blood (KENDRA) - Final Occult Blood Positive Imaging Radiology Impression Abdomen/Pelvis CT 12/27/23 10:14 IMPRESSION: Findings suggestive of cirrhosis. Fatty infiltration of the liver. Small gallstones with mild thickening of the gallbladder wall. Small amount of ascites. Sigmoid diverticulosis. Small umbilical hernia containing fat. Electronically Signed: Nahum Kelley MD at 10:54 EDT , Assessment & Plan Assessment/Plan (1) Decompensated hepatic cirrhosis: (2) Acute upper GI bleeding: PLAN: Plan This is a 73-year-old female with history of decompensated alcoholic cirrhosis came for black tarry stool, jaundice, weak mild dizziness and very thirsty 1. Acute upper GI bleed likely due to esophageal variceal bleed/PHG: Patient isbeing admitted in PCU. Heart rate and blood pressure are controlled. No hypoxia. Patient is clinically dehydrated. She is being discharged with IV fluid normal saline, strict intake and output. H&H 10.1/29.7%.Baseline H&H 11.6/31% H&H every 6 hourly. IV PPI drip after bolus, octreotide drip and ceftriaxone. GI consulted. Plan for EGD tomorrow a.m. Mild hypokalemia, potassium getting replaced. Serum magnesium and phosphorus are 2. Decompensated alcoholic cirrhosis with ascites, portal hypertension, variceal bleed and jaundice: Liver chemistry reviewed. Platelet count 102,000. Liver chemistry shows AST 57 alkaline phosphatase 218, albumin 2.6. MELD sodiumscore 18 with INR 1.3, creatinine 0.71, sodium 138 and TB 7.4, direct 4.5. Estimated 90-day mortality 3 to 4%. 3. Chronic HFpEF with moderately severe pulmonary hypertension: 2D echo in November 2023 EF 65%, normal RV size and systolic function. LA mildly enlarged. RVSP 50 mL trivial TR suggestive of moderate pulmonary hypertension. Patient onfurosemide and spironolactone at home which is held. 4. Hypertension, history of right leg nonpressure ulcer, right GSV chronic venous insufficiency. Patient had right GSV successful ablation in the past byDr. Galaviz, no acute issues. BP normal. 5. Chronic GERD, hypokalemia, osteoporosis and history of breast cancer: Patient on anastrozole.Patient follows [facility]. On alendronate continued Living will/advanced directive/end of life care: Patient does not living will or advanced directive. Her is power of admitted attorneys for health. After discussion of benefits/risks procedures involved with full code, DNR CC arrest and DNR CC, the patient opted for full code. Patient does want artificial life support including intubation, tube feed, ventilator and/chest compression, central venous catheter, vasopressor and DC shock if needed Total time spent in [id number] encounter in discussion of advanced directive 17 minutes. Microbiology Past 72 Hours 12/27/23 09:39 Stool Stool Occult Blood (KENDRA) - Final Occult Blood Positive Laboratory Results 12/27/23 09:25: Urine Color Yellow, Urine Clarity Sl. Cloudy, Urine pH 7.0, Ur Specific [place] 1.005, Urine Protein 15 H, Urine Glucose (UA) Normal, Urine Ketones 5 H, Urine Occult Blood 10 H, Urine Nitrite Negative, Urine Bilirubin 1 H, Urine Urobilinogen 4 H, Ur Leukocyte Esterase 25 H, Urine RBC 0-5 SEEN, UrineWBC 0-5 SEEN, Ur Squamous Epith Cells 0 SEEN, Urine Bacteria 0 SEEN, Urine Mucus0 SEEN 12/27/23 09:30: WBC 8.4, RBC 2.78 L, Hgb 10.1 L, Hct 29.7 L, MCV 106.8 H, MCH 36.3 H, MCHC 34.0, RDW Std Deviation 50.0 H, RDW Coeff of Carlyle 12.8, Plt Count 102 L, MPV 9.5, Immature Gran % (Auto) 0.500, Neut % (Auto) 73.0 H, Lymph % (Auto) 19.2, [place] % (Auto) 6.7, Eos % (Auto) 0.4, Baso % (Auto) 0.2, Absolute Neuts (auto) 6.1, Absolute Lymphs (auto) 1.61, Nucleated RBC % 0, PT 15.7 H, INR 1.3, APTT 32.0, Sodium 138, Potassium 3.2 L, Chloride 100, Carbon Dioxide 30.0, Anion Gap 8, BUN36 H, Creatinine 0.71, Est GFR (MDRD) Af Amer 104, Est GFR (MDRD) Non-Af 86, BUN/Creatinine Ratio 50.8 H, Glucose 99, Calcium 9.6, Total Bilirubin 7.40 H, Direct Bilirubin 4.50 H, AST 57 H, ALT 23, Alkaline Phosphatase 218 H, Total Protein 6.2 L, Albumin 2.6 L, Globulin 3.6, Lipase 31 Clinical Impression(s) from Imaging Studies Abdomen/Pelvis CT 12/27/23 10:14 IMPRESSION: Findings suggestive of cirrhosis. Fatty infiltration of the liver. Small gallstones with mild thickening of the gallbladder wall. Small amount of ascites. Sigmoid diverticulosis. Small umbilical hernia containing fat. Charges/Coding Visit Charges Inpatient E&M: 27562 Init Hosp L3 Procedures Hospitalists Procedures: 78849 Advncd Care Plan 30 Min 12/27/23 1337 <Electronically signed by Harrison Roper MD> Cosigner Signature (if applicable): CC: Dr. Khanh Rodriguez MD; Dr. Harrison Roper MD~ Signed [facility] Work Phone: Hospital Discharge instructionsAmbulatory Orders* Gastroenterology Location: None Selected [facility] Work Phone: Hospital Discharge instructionsAmbulatory Orders* Orthopedics Location: None Selected * Pain Management Location: None Selected [facility] Work Phone: Progress note* Clinical Note Date No Information [facility] Work Phone: Renjjk for referral (narrative)* Reason For Referral No Information [facility] Work Phone: Redy[facility] for referral (narrative)* Diagnostic Procedure Only (Routine) - Authorized Specialty Diagnoses / Procedures Referred By Contac t Referred To Contact XR IMAGING Diagnoses Pain Procedures XR HIP GENERAL 3V PELV/AP/LAT LEFT RADEX HIP UNILATERAL WITH PELVIS 2-3 VIEWS Yoseph Briones MD [address] [place] [address] Xr Imaging Referral ID Status Reason Start Date Expiration Date Visits Requested Visits Authorized [id number] Authorized Auto-Generat ed Referral 10/18/2022 11/17/2023 1 1 [facility] for referral (narrative)* Outpatient Procedure (Routine) - Authorized Specialty Diagnoses / Procedures Referred By Contac t Referred To Contact [facility] [place] Diagnoses Venous (peripheral) insufficiency Symptomatic varicose veins of both lower extremities Procedures US VENOUS INCOMPETENCY ALBERT VAS LAB DUP-SCAN XTR VEINS COMPLETE BILATERAL STUDY Gt Yin DO [address] [place] [address] [facility] [address] [address] Referral ID Status Reason Start Date Expiration Date Visits Requested Visits Authorized [id number] Authorized Auto-Generat ed Referral 02/27/2024 02/26/2025 1 1 * Physical Therapy (Routine) - Authorized Specialty Diagnoses / Procedures Referred By Contac t Referred To Contact [facility] Diagnoses Venous ulcer (HCC) Venous (peripheral) insufficiency Secondary lymphedema Procedures CONSULT TO PHYSICAL THERAPY PHYSICAL THERAPY EVALUATION HIGH COMPLEX 45 MINS Gt Yin DO [address] [place] [address] [facility] [address] [address] Referral ID Status Reason Start Date Expiration Date Visits Requested Visits Authorized [id number] Authorized PCP Requested Referral Auto-Generate d Referral 02/27/2024 02/26/2025 99 99 [facility] for referral (narrative)* Diagnostic Procedure Only (Routine) - Closed Specialty Diagnoses / Procedures Referred By Contac t Referred To Contact XR IMAGING Diagnoses Pain in left hip Procedures XR HIP 2V AP/LAT LEFT (AK,FL,ME,UN) RADEX HIP UNILATERAL WITH PELVIS 2-3 VIEWS Abdirahman Wright APRN.REAL ESTATE LEGAL ASSISTANT [address] [place] [address] [place] [address] Referral ID Status Reason Start Date Expiration Date V isits Requested Visits Authorized [id number] Closed Auto-Generate d Referral 03/13/2024 04/12/2025 1 1 [facility] for visit Narrative* Diagnostic Procedure Only (Routine) - Closed Specialty Diagnoses / Procedures Referred By Contac t Referred To Contact XR IMAGING Diagnoses Pain in left hip Procedures XR HIP 2V AP/LAT LEFT (AK,FL,ME,UN) RADEX HIP UNILATERAL WITH PELVIS 2-3 VIEWS Abdirahman Wright APRN.REAL ESTATE LEGAL ASSISTANT [address] [place] [address] [place] [address] Referral ID Status Reason Start Date Expiration Date V isits Requested Visits Authorized [id number] Closed Auto-Generate d Referral 03/13/2024 04/12/2025 1 1 [facility] for visit Narrative* Outpatient Procedure (Routine) - Closed Specialty Diagnoses / Procedures Referred By Contac t Referred To Contact [facility] Diagnoses Venous (peripheral) insufficiency Symptomatic varicose veins of both lower extremities Procedures US VENOUS INCOMPETENCY ALBERT VAS LAB DUP-SCAN XTR VEINS COMPLETE BILATERAL STUDY Gt Yin DO [address] [place] [address] [facility] [place] [address] [place] [address] Referral ID Status Reason Start Date Expiration Date V isits Requested Visits Authorized [id number] Closed Auto-Generate d Referral 02/27/2024 02/26/2025 1 1 [facility] Summary Purpose Family History No Family History Records Found Family Member Type Diagnosis Age At Onset [...] Problem (finding) Family history of demen tia Relationship Condition Age at Onset Recorded Date/T paul mother Cardiac disease Unknown father Cardiac disease Unknown Relationship Condition Age at Onset Recorded Date/T paul mother Alzheimer's disease Unknown father Cardiac disease Unknown Diabetes mellitus Unknown Family Member Type Diagnosis Age At Onset [...] 90 Mother Problem (finding) dementia Advance Directives No Advanced Directives Records FoundDocuments on File Type Date 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 Advance Directives and Living Will Power of Senior Java Software Engineer Directive Yes / No Effective Date File Name No Information Advance Directive Response Recorded Date/ Time Living Will No June 09 1 12:10pm Power of Senior Java Software Engineer No June 09 021 12:10pm Advance Directive Response Recorded Date/ Time Living Will No January 20, 2023 1 0:41am Power of Senior Java Software Engineer No January 20, 2023 10:41am Advance Directive Response Recorded Date/ Time Name of Medical Power of Senior Java Software Engineer RANJIT GARCIA [facility] June 12, 2023 2:18pm Living Will Yes June 12 2:18pm Power of Senior Java Software Engineer Yes June 12 023 2:18pm Advance Directive Response Recorded Date/ Time Name of Medical Power of Senior Java Software Engineer RANJIT GARCIA [facility] June 12, 2023 1:18pm Living Will Yes June 12 1:18pm Power of Senior Java Software Engineer Yes June 12 2 023 1:18pm Advance Directive Response Recorded Date/ Time Living Will Yes June 12 1:18pm Power of Senior Java Software Engineer Yes June 12 2 023 1:18pm Advance Directive Response Recorded Date/ Time Advance Directives No October 8:24am Living Will No October 25 024 8:24am Power of Senior Java Software Engineer No October 25, 2023 8:24am Advance Directive Response Recorded Date/ Time Advance Directives on File Yes Neil butlery 2023 11:20am Name of Medical Power of Senior Java Software Engineer ranijt rizvi October 26, 2023 11:20am Advance Directives Yes October 11:20am Living Will Yes October 26 024 11:20am Power of Senior Java Software Engineer Yes October 26, 2023 11:20am Advance Directive Response Recorded Date/ Time Advance Directives on File Yes Jessicabailey leigh 2023 12:20pm Name of Medical Power of Senior Java Software Engineer ranjit rizvi October 26, 2023 12:20pm Advance Directives Yes October 12:20pm Living Will Yes October 26 12:20pm Power of Senior Java Software Engineer Yes October 26, 2023 12:20pm Advance Directive Response Recorded Date/ Time Advance Directives on File Yes Neil reese 2023 12:20pm Name of Medical Power of Senior Java Software Engineer ranjit rizvi October 26, 2023 12:20pm Advance Directives Yes October 12:20pm Living Will No December 27, 2023 10:17am Power of Senior Java Software Engineer No December 26 10:17am Advance Directive Response Recorded Date/ Time Advance Directives on File Yes Jessicabailey leigh 2023 12:20pm Name of Medical Power of Senior Java Software Engineer ranjit rizvi October 26, 2023 12:20pm Name of Medical Power of Senior Java Software Engineer Ranjit Ga December 27, 2023 2:18pm Advance Directives Yes October 12:20pm Living Will Yes December 27, 2023 2:18pm Power of Senior Java Software Engineer Yes December 26 2:18pm Advance Directive Response Recorded Date/ Time Advance Directives Yes December 31, 024 3:20pm Living Will Yes January 01, 2024 3:20pm Power of Senior Java Software Engineer Yes December 31 3:20pm Advance Directives on File Yes Neil leigh 2023 12:20pm Name of Medical Power of Senior Java Software Engineer ranjit rizvi October 26, 2023 12:20pm Name of Medical Power of Senior Java Software Engineer Ranjit Ga December 27, 2023 2:18pm Advance Directive Response Recorded Date/ Time Advance Directives Yes December 31, 024 3:20pm Advance Directive Response Recorded Date/ Time Living Will No May 15, 2024 2:03pm Do you have a Healthcare Power of Senior Java Software Engineer? No May 15, 2024 2:03pm Living Will Yes January 01, 2024 3:20pm Do you have a Healthcare Power of Senior Java Software Engineer? Yes January 01, 2024 3:20pm Advance Directives Yes January 23 3:15pm Advance Directive Response Recorded Date/ Time Living Will No May 15, 2024 2:03pm Do you have a Healthcare Power of Senior Java Software Engineer? No May 15, 2024 2:03pm Living Will Yes January 01, 2024 3:20pm Do you have a Healthcare Power of Senior Java Software Engineer? Yes January 01, 2024 3:20pm Advance Directives Yes May 10:36am Advance Directive Response Recorded Date/ Time Advance Directives Yes May 10:36am Chief Complaint and Reason for Visit Chief Complaint Admit Date LABS/NO DX CODES February 24, 2025 2:23 pm EVENITY February 28, 2025 11:2 6am EVENITY March 28, 2025 11:5 9am EVENITY April 25, 2025 12 :44pm ACUTE NOT FEELING WELL April 29, 2025 12:39pm LUMBAR SPINE May 08, 2025 1:03pm RM 3 May 08, 2025 1:28pm LUMBAR PAIN May 13, 2025 1:59pm Lab. Prolia-$0 May 21, 2025 8:04am Reason for Visit Admit Date Chronic pain April 29, 2025 12 :39pm Cirrhosis April 29, 2025 12 :39pm Dyspnea April 29, 2025 12 :39pm Compression fracture of lumbar vertebra May 08, 2025 1:03pm History of kyphoplasty May 08 1:03pm Lumbar stenosis with neurogenic claudica tion May 08, 2025 1:03pm Osteoporosis May 08, 2025 1:03pm Cellulitis of right leg May 21, 2025 8:04am CHF (congestive heart failure) May 21, 2025 8:04am Compression fracture of lumbar vertebra May 21, 2025 8:04am Decompensated hepatic cirrhosis Septembe r 2024 8:04am Osteoporosis May 21, 2025 8:04am Chief Complaint Admit Date ACUTE-MED DISCUSSION/REFILLS January 22 025 11:42am 6 MO - LABS January 23, 2025 12:30 pm 7 MO, LABS January 23, 2025 12:32 pm EVENITY January 31, 2025 10:25 am Reason for Visit Admit Date Back pain January 22, 2025 11:42 am Compression fracture of lumbar vertebra January 22, 2025 11:42am Breast cancer January 23, 2025 12:32 pm Chief Complaint Admit Date ACUTE-MED DISCUSSION/REFILLS January 22 025 11:42am Chief Complaint WOUND CONSULT-VENOUS INSUFFICIENCY & PAD WOUND WOUND WOUND WOUND Pain in right leg Non-pressure chronic ulcer of unspecified part of WOUND SAPHINOUS VAIN SAPHINOUS VAIN WOUND WOUND POST OP F/U POST OP chk up DYSPNEA WOUND ACUTE DIARRHEA [id number] WOUND WOUND WOUND UPPER GI BLEED UPPER GI BLEED UPPER GI BLEED UPPER GI BLEED UPPER GI BLEED UPPER GI BLEED UPPER GI BLEED Reason for Visit Non-pressure ulcer o f right lower extremity with fat layer exposed Non-pressure ulcer of right lower extremity Nonhealing nonsurgical wound Squamous cell carcinoma of lower leg Venous ulcer of ankle Non-pressure ulcer of right lower extremity with fat layer exposed Venous insufficiency of right lower extremity Non-pressure ulcer of right lower extremity Nonhealing nonsurgical wound Squamous cell carcinoma of lower leg Venous ulcer of ankle Non-pressure ulcer of right lower extremity with fat layer exposed Venous insufficiency of right lower extremity Non-pressure ulcer of right lower extremity with fat layer exposed Venous insufficiency of right lower extremity Breast cancer Dyspnea GERD (gastroesophageal reflux disease) Hyponatremia Osteoporosis Venous insufficiency of right lower extremity Alcoholic Diarrhea Jaundice Non-pressure ulcer of right lower extremity Nonhealing nonsurgical wound Squamous cell carcinoma of lower leg Venous ulcer of ankle Non-pressure ulcer of right lower extremity with fat layer exposed Venous insufficiency of right lower extremity Acute upper GI bleeding Ascites Decompensated hepatic cirrhosis Jaundice Thrombocytopenia Chief Complaint WOUND WOUND WOUND CONSULT-VENOUS INSUFFICIENCY & PAD WOUND WOUND WOUND WOUND Pain in right leg Non-pressure chronic ulcer of unspecified part of WOUND SAPHINOUS VAIN SAPHINOUS VAIN WOUND WOUND POST OP F/U POST OP chk up DYSPNEA WOUND ACUTE DIARRHEA [id number] WOUND WOUND WOUND UPPER GI BLEED UPPER GI BLEED Reason for Visit Non-pressure ulcer o f right lower extremity Nonhealing nonsurgical wound Squamous cell carcinoma of lower leg Venous ulcer of ankle Non-pressure ulcer of right lower extremity with fat layer exposed Non-pressure ulcer of right lower extremity with fat layer exposed Non-pressure ulcer of right lower extremity Nonhealing nonsurgical wound Squamous cell carcinoma of lower leg Venous ulcer of ankle Non-pressure ulcer of right lower extremity with fat layer exposed Venous insufficiency of right lower extremity Non-pressure ulcer of right lower extremity Nonhealing nonsurgical wound Squamous cell carcinoma of lower leg Venous ulcer of ankle Non-pressure ulcer of right lower extremity with fat layer exposed Venous insufficiency of right lower extremity Non-pressure ulcer of right lower extremity with fat layer exposed Venous insufficiency of right lower extremity Breast cancer Dyspnea GERD (gastroesophageal reflux disease) Hyponatremia Osteoporosis Venous insufficiency of right lower extremity Alcoholic Diarrhea Jaundice Non-pressure ulcer of right lower extremity Nonhealing nonsurgical wound Squamous cell carcinoma of lower leg Venous ulcer of ankle Non-pressure ulcer of right lower extremity with fat layer exposed Venous insufficiency of right lower extremity Acute upper GI bleeding Ascites Decompensated hepatic cirrhosis Jaundice Thrombocytopenia Chief Complaint WOUND WOUND WOUND WOUND WOUND CONSULT-VENOUS INSUFFICIENCY & PAD WOUND WOUND WOUND WOUND Pain in right leg Non-pressure chronic ulcer of unspecified part of WOUND SAPHINOUS VAIN SAPHINOUS VAIN WOUND WOUND POST OP F/U POST OP chk up DYSPNEA WOUND ACUTE DIARRHEA [id number] WOUND WOUND WOUND Reason for Visit Non-pressure ulcer o f right lower extremity Nonhealing nonsurgical wound Squamous cell carcinoma of lower leg Venous ulcer of ankle Non-pressure ulcer of right lower extremity with fat layer exposed Non-pressure ulcer of right lower extremity with fat layer exposed Non-pressure ulcer of right lower extremity Nonhealing nonsurgical wound Squamous cell carcinoma of lower leg Venous ulcer of ankle Non-pressure ulcer of right lower extremity with fat layer exposed Venous insufficiency of right lower extremity Non-pressure ulcer of right lower extremity Nonhealing nonsurgical wound Squamous cell carcinoma of lower leg Venous ulcer of ankle Non-pressure ulcer of right lower extremity with fat layer exposed Venous insufficiency of right lower extremity Non-pressure ulcer of right lower extremity with fat layer exposed Venous insufficiency of right lower extremity Breast cancer Dyspnea GERD (gastroesophageal reflux disease) Hyponatremia Osteoporosis Venous insufficiency of right lower extremity Alcoholic Diarrhea Jaundice Non-pressure ulcer of right lower extremity Nonhealing nonsurgical wound Squamous cell carcinoma of lower leg Venous ulcer of ankle Non-pressure ulcer of right lower extremity with fat layer exposed Venous insufficiency of right lower extremity Chief Complaint 2WK BREAST CHECK CHEMO ED/SCP WOUND WOUND WOUND WOUND WOUND WOUND WOUND CONSULT-VENOUS INSUFFICIENCY & PAD WOUND WOUND WOUND WOUND Pain in right leg Non-pressure chronic ulcer of unspecified part of WOUND SAPHINOUS VAIN SAPHINOUS VAIN WOUND WOUND POST OP F/U POST OP chk up DYSPNEA WOUND WOUND ACUTE DIARRHEA [id number] Reason for Visit Breast cancer Breast cancer Encounter for education Non-pressure ulcer of right lower extremity Nonhealing nonsurgical wound Squamous cell carcinoma of lower leg Venous ulcer of ankle Non-pressure ulcer of right lower extremity with fat layer exposed Non-pressure ulcer of right lower extremity Nonhealing nonsurgical wound Squamous cell carcinoma of lower leg Venous ulcer of ankle Non-pressure ulcer of right lower extremity with fat layer exposed Non-pressure ulcer of right lower extremity with fat layer exposed Non-pressure ulcer of right lower extremity Nonhealing nonsurgical wound Squamous cell carcinoma of lower leg Venous ulcer of ankle Non-pressure ulcer of right lower extremity with fat layer exposed Venous insufficiency of right lower extremity Non-pressure ulcer of right lower extremity Nonhealing nonsurgical wound Squamous cell carcinoma of lower leg Venous ulcer of ankle Non-pressure ulcer of right lower extremity with fat layer exposed Venous insufficiency of right lower extremity Non-pressure ulcer of right lower extremity with fat layer exposed Venous insufficiency of right lower extremity Breast cancer Dyspnea GERD (gastroesophageal reflux disease) Hyponatremia Osteoporosis Venous insufficiency of right lower extremity Jaundice Non-pressure ulcer of right lower extremity Nonhealing nonsurgical wound Squamous cell carcinoma of lower leg Venous ulcer of ankle Non-pressure ulcer of right lower extremity with fat layer exposed Venous insufficiency of right lower extremity Alcoholic Diarrhea Chief Complaint WOUND CONSULT - BREAST / SKIN 2WK BREAST CHECK CHEMO ED/SCP WOUND WOUND WOUND WOUND WOUND WOUND WOUND CONSULT-VENOUS INSUFFICIENCY & PAD WOUND WOUND WOUND WOUND Pain in right leg Non-pressure chronic ulcer of unspecified part of WOUND SAPHINOUS VAIN SAPHINOUS VAIN WOUND WOUND POST OP F/U POST OP chk up Reason for Visit Breast cancer Breast cancer Breast cancer Encounter for education Non-pressure ulcer of right lower extremity Nonhealing nonsurgical wound Squamous cell carcinoma of lower leg Venous ulcer of ankle Non-pressure ulcer of right lower extremity with fat layer exposed Non-pressure ulcer of right lower extremity Nonhealing nonsurgical wound Squamous cell carcinoma of lower leg Venous ulcer of ankle Non-pressure ulcer of right lower extremity with fat layer exposed Non-pressure ulcer of right lower extremity with fat layer exposed Non-pressure ulcer of right lower extremity Nonhealing nonsurgical wound Squamous cell carcinoma of lower leg Venous ulcer of ankle Non-pressure ulcer of right lower extremity with fat layer exposed Venous insufficiency of right lower extremity Non-pressure ulcer of right lower extremity Nonhealing nonsurgical wound Squamous cell carcinoma of lower leg Venous ulcer of ankle Non-pressure ulcer of right lower extremity with fat layer exposed Venous insufficiency of right lower extremity Non-pressure ulcer of right lower extremity with fat layer exposed Venous insufficiency of right lower extremity Breast cancer Dyspnea GERD (gastroesophageal reflux disease) Hyponatremia Osteoporosis Venous insufficiency of right lower extremity Chief Complaint f/u from surgery 6 MO - LABS WOUND CONSULT - BREAST / SKIN 2WK BREAST CHECK CHEMO ED/SCP WOUND WOUND WOUND WOUND WOUND WOUND WOUND CONSULT-VENOUS INSUFFICIENCY & PAD WOUND WOUND WOUND WOUND Pain in right leg Non-pressure chronic ulcer of unspecified part of WOUND SAPHINOUS VAIN SAPHINOUS VAIN WOUND WOUND POST OP F/U POST OP Reason for Visit Breast cancer Breast cancer Breast cancer Breast cancer Encounter for education Non-pressure ulcer of right lower extremity Nonhealing nonsurgical wound Squamous cell carcinoma of lower leg Venous ulcer of ankle Non-pressure ulcer of right lower extremity with fat layer exposed Non-pressure ulcer of right lower extremity Nonhealing nonsurgical wound Squamous cell carcinoma of lower leg Venous ulcer of ankle Non-pressure ulcer of right lower extremity with fat layer exposed Non-pressure ulcer of right lower extremity with fat layer exposed Non-pressure ulcer of right lower extremity Nonhealing nonsurgical wound Squamous cell carcinoma of lower leg Venous ulcer of ankle Non-pressure ulcer of right lower extremity with fat layer exposed Venous insufficiency of right lower extremity Non-pressure ulcer of right lower extremity Nonhealing nonsurgical wound Squamous cell carcinoma of lower leg Venous insufficiency of right lower extremity Venous ulcer of ankle Non-pressure ulcer of right lower extremity with fat layer exposed Chief Complaint 2WK BREAST CHECK WOUND WOUND WOUND f/u from surgery 6 MO - LABS WOUND CONSULT - BREAST / SKIN 2WK BREAST CHECK CHEMO ED/SCP WOUND WOUND WOUND WOUND WOUND WOUND WOUND CONSULT-VENOUS INSUFFICIENCY & PAD WOUND WOUND WOUND WOUND Pain in right leg Non-pressure chronic ulcer of unspecified part of WOUND Reason for Visit Breast cancer Non-pressure ulcer of right lower extremity Nonhealing nonsurgical wound Squamous cell carcinoma of lower leg Venous ulcer of ankle Breast cancer Breast cancer Breast cancer Breast cancer Encounter for education Non-pressure ulcer of right lower extremity Nonhealing nonsurgical wound Squamous cell carcinoma of lower leg Venous ulcer of ankle Non-pressure ulcer of right lower extremity with fat layer exposed Non-pressure ulcer of right lower extremity Nonhealing nonsurgical wound Squamous cell carcinoma of lower leg Venous ulcer of ankle Non-pressure ulcer of right lower extremity with fat layer exposed Non-pressure ulcer of right lower extremity with fat layer exposed Non-pressure ulcer of right lower extremity Nonhealing nonsurgical wound Squamous cell carcinoma of lower leg Venous ulcer of ankle Non-pressure ulcer of right lower extremity with fat layer exposed Non-pressure ulcer of right lower extremity Nonhealing nonsurgical wound Squamous cell carcinoma of lower leg Venous insufficiency of right lower extremity Venous ulcer of ankle Non-pressure ulcer of right lower extremity with fat layer exposed Chief Complaint BREAST CHECK WOUND 2WK BREAST CHECK WOUND WOUND WOUND f/u from surgery 6 MO - LABS WOUND CONSULT - BREAST / SKIN 2WK BREAST CHECK CHEMO ED/SCP WOUND WOUND WOUND WOUND WOUND WOUND WOUND CONSULT-VENOUS INSUFFICIENCY & PAD WOUND WOUND WOUND WOUND Pain in right leg WOUND Reason for Visit Breast cancer Breast cancer Non-pressure ulcer of right lower extremity Nonhealing nonsurgical wound Squamous cell carcinoma of lower leg Venous ulcer of ankle Breast cancer Breast cancer Breast cancer Breast cancer Encounter for education Non-pressure ulcer of right lower extremity Nonhealing nonsurgical wound Squamous cell carcinoma of lower leg Venous ulcer of ankle Non-pressure ulcer of right lower extremity with fat layer exposed Non-pressure ulcer of right lower extremity Nonhealing nonsurgical wound Squamous cell carcinoma of lower leg Venous ulcer of ankle Non-pressure ulcer of right lower extremity with fat layer exposed Non-pressure ulcer of right lower extremity with fat layer exposed Non-pressure ulcer of right lower extremity Nonhealing nonsurgical wound Squamous cell carcinoma of lower leg Venous ulcer of ankle Non-pressure ulcer of right lower extremity with fat layer exposed Non-pressure ulcer of right lower extremity Nonhealing nonsurgical wound Squamous cell carcinoma of lower leg Venous ulcer of ankle Chief Complaint PREOP left Mastectomy w/SLN bx with nucle left Mastectomy w/SLN bx with nucle left Mastectomy w/SLN bx with nucle WOUND MASECTOMY 10-10 / DRAIN REMOVAL BREAST CHECK WOUND 2WK BREAST CHECK WOUND WOUND WOUND f/u from surgery 6 MO - LABS WOUND CONSULT - BREAST / SKIN 2WK BREAST CHECK CHEMO ED/SCP WOUND WOUND WOUND WOUND WOUND WOUND WOUND CONSULT-VENOUS INSUFFICIENCY & PAD WOUND WOUND WOUND Reason for Visit Breast cancer Breast cancer Breast cancer Breast cancer Non-pressure ulcer of right lower extremity Nonhealing nonsurgical wound Squamous cell carcinoma of lower leg Venous ulcer of ankle Breast cancer Breast cancer Breast cancer Breast cancer Encounter for education Non-pressure ulcer of right lower extremity Nonhealing nonsurgical wound Squamous cell carcinoma of lower leg Venous ulcer of ankle Non-pressure ulcer of right lower extremity with fat layer exposed Non-pressure ulcer of right lower extremity Nonhealing nonsurgical wound Squamous cell carcinoma of lower leg Venous ulcer of ankle Non-pressure ulcer of right lower extremity with fat layer exposed Non-pressure ulcer of right lower extremity with fat layer exposed Non-pressure ulcer of right lower extremity Nonhealing nonsurgical wound Squamous cell carcinoma of lower leg Venous ulcer of ankle Non-pressure ulcer of right lower extremity with fat layer exposed Chief Complaint wound wound wound wound STAT - VENOUS DOPPLER STAT - VENOUS DOPPLER 3 M FU/breast lump CONSULT-VENOUS INSUFFICIENCY LEFT LUMP Right Carotid Artery/Umbilical Hernia/ L BREAST L BREAST BX WOUND NEW-BREAST CA LUMP BREAST CA WOUND WOUND BREAST CA f/u breast and axillary US PREOP left Mastectomy w/SLN bx with nucle left Mastectomy w/SLN bx with nucle left Mastectomy w/SLN bx with nucle WOUND MASECTOMY 10-10 / DRAIN REMOVAL BREAST CHECK WOUND 2WK BREAST CHECK WOUND WOUND Reason for Visit Cellulitis Non-pressure ulcer of right lower extremity Nonhealing nonsurgical wound Ulcer of right leg Edema of both lower extremities Varicose veins of both lower extremities Cellulitis Non-pressure ulcer of right lower extremity Ulcer of right leg Edema of both lower extremities Varicose veins of both lower extremities Preoperative evaluation to rule out surgical contraindication Edema of both lower extremities Hypertension Hyponatremia Squamous cell skin cancer Umbilical hernia Carotid stenosis, right Ulcer of right leg Varicose veins of left lower extremity Edema of both lower extremities Abnormal mammogram of left breast Carotid stenosis, right Cirrhosis Left breast lump Squamous cell skin cancer Umbilical hernia Back pain Breast cancer Non-pressure ulcer of right lower extremity Squamous cell carcinoma of lower leg Venous ulcer of ankle Breast cancer Carotid stenosis, right Cirrhosis Umbilical hernia Breast cancer Breast cancer Breast cancer Breast cancer Non-pressure ulcer of right lower extremity Nonhealing nonsurgical wound Squamous cell carcinoma of lower leg Venous ulcer of ankle Chief Complaint wound Unequal limb length (acquired), left femur wound wound wound wound wound wound wound wound STAT - VENOUS DOPPLER STAT - VENOUS DOPPLER 3 M FU/breast lump CONSULT-VENOUS INSUFFICIENCY LEFT LUMP Right Carotid Artery/Umbilical Hernia/ L BREAST L BREAST BX WOUND NEW-BREAST CA LUMP BREAST CA WOUND WOUND BREAST CA f/u breast and axillary US Reason for Visit Cellulitis Non-pressure ulcer of right lower extremity Nonhealing nonsurgical wound Ulcer of right leg Edema of both lower extremities Varicose veins of both lower extremities Cellulitis Non-pressure ulcer of right lower extremity Nonhealing nonsurgical wound Ulcer of right leg Edema of both lower extremities Varicose veins of both lower extremities Cellulitis Non-pressure ulcer of right lower extremity Ulcer of right leg Edema of both lower extremities Varicose veins of both lower extremities Preoperative evaluation to rule out surgical contraindication Edema of both lower extremities Hypertension Hyponatremia Squamous cell skin cancer Umbilical hernia Carotid stenosis, right Ulcer of right leg Varicose veins of left lower extremity Edema of both lower extremities Abnormal mammogram of left breast Carotid stenosis, right Cirrhosis Left breast lump Squamous cell skin cancer Umbilical hernia Back pain Breast cancer Non-pressure ulcer of right lower extremity Squamous cell carcinoma of lower leg Venous ulcer of ankle Breast cancer Carotid stenosis, right Cirrhosis Umbilical hernia Chief Complaint wound wound wound wound Unequal limb length (acquired), left femur wound wound wound wound wound wound wound wound STAT - VENOUS DOPPLER STAT - VENOUS DOPPLER 3 M FU/breast lump CONSULT-VENOUS INSUFFICIENCY LEFT LUMP Right Carotid Artery/Umbilical Hernia/ L BREAST L BREAST BX Reason for Visit Ulcer of right leg Edema of both lower extremities Varicose veins of both lower extremities Cellulitis Non-pressure ulcer of right lower extremity Nonhealing nonsurgical wound Ulcer of right leg Edema of both lower extremities Varicose veins of both lower extremities Cellulitis Non-pressure ulcer of right lower extremity Nonhealing nonsurgical wound Ulcer of right leg Edema of both lower extremities Varicose veins of both lower extremities Cellulitis Non-pressure ulcer of right lower extremity Ulcer of right leg Edema of both lower extremities Varicose veins of both lower extremities Preoperative evaluation to rule out surgical contraindication Edema of both lower extremities Hypertension Hyponatremia Squamous cell skin cancer Umbilical hernia Carotid stenosis, right Ulcer of right leg Varicose veins of left lower extremity Edema of both lower extremities Abnormal mammogram of left breast Carotid stenosis, right Cirrhosis Left breast lump Squamous cell skin cancer Umbilical hernia Back pain Chief Complaint Incession not healin g wound wound wound wound Unequal limb length (acquired), left femur wound wound wound wound Reason for Visit Cellulitis of right leg Screening for thyroid disorder Ulcer of right leg Dermatitis Hypertension Osteoporosis Edema of both lower extremities Ulcer of right leg Varicose veins of both lower extremities Cellulitis Edema of both lower extremities Non-pressure ulcer of right lower extremity Nonhealing nonsurgical wound Ulcer of right leg Varicose veins of both lower extremities Chief Complaint Incession not healin g wound wound wound Reason for Visit Cellulitis of right leg Screening for thyroid disorder Ulcer of right leg Dermatitis Hypertension Osteoporosis Edema of both lower extremities Ulcer of right leg Varicose veins of both lower extremities 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 Reason for Visit Age-related physical debility Hypotension Post-menopausal GERD (gastroesophageal reflux disease) Left hip pain Varicose veins of both lower extremities Vertigo Reason for Referral Specialty Diagnoses / Procedures Referred By Tara bravo Referred To [facility] Diagnoses Degenerative scoliosis Procedures CON[facility]ULT [facility] OFFICE/OUTPATIENT [facility] 60 MINUTES Marisela Mccarty MD [address] [address] Referral ID Status Reason Start Date Expiration Date Visits Requested Visits Authorized [id number] Authorized PCP Requested Referral 04/02/2024 04/02/2025 1 1 Specialty Diagnoses / Procedures Referred By Tara t Referred To Contact [facility] Diagnoses Degenerative scoliosis Procedures CONSULT TO PHYSICAL THERAPY PHYSICAL THERAPY EVALUATION HIGH COMPLEX 45 MINS Monse Merlos PA-C [address] [place] [address] [facility] [address] [id number] [place] [address] Referral ID Status Reason Start Date Expiration Date Visits Requested Visits Authorized [id number] Authorized PCP Requested Referral Auto-Generate d Referral 06/12/2024 06/12/2025 99 99 Additional Source Comments INFORMATION SOURCE (unrecogn ized section and content) DATE CREATED AUTHOR 02/27/2018 [facility] DATE CREATED AUTHOR AUTHOR'S ORGANIZ ATION 07/09/2019 [facility] DATE CREATED AUTHOR AUTHOR'S ORGANIZ ATION 09/20/2019 [facility] DATE CREATED AUTHOR AUTHOR'S ORGANIZ ATION 02/13/2020 [facility] DATE CREATED AUTHOR AUTHOR'S ORGANIZ ATION 05/06/2021 [facility] DATE CREATED AUTHOR AUTHOR'S ORGANIZ ATION 05/16/2024 [facility] DATE CREATED AUTHOR AUTHOR'S ORGANIZ ATION 09/21/2024 [facility] DATE CREATED AUTHOR AUTHOR'S ORGANIZ ATION 05/28/2025 [facility] DATE CREATED AUTHOR AUTHOR'S ORGANIZ ATION 06/06/2025 [facility] Goals (unrecognized section and content) Goals may be documented in a n alternate section Source Comments (unrecognize d section and content) In the event this informatio n is protected by the Federal Confidentiality of Alcohol and Drug Abuse Patient Records regulations: The Federal rules restrict any use of the information to criminally investigate or prosecute any alcohol or drug abuse patient.[facility] the event this information is protected by the Federal Confidentiality of Alcohol and Drug Abuse Patient Records regulations: The Federal rules restrict any use of the information to criminally investigate or prosecute any alcohol or drug abuse patient.[facility] the event this information is protected by the Federal Confidentiality of Alcohol and Drug Abuse Patient Records regulations: The Federal rules restrict any use of the information to criminally investigate or prosecute any alcohol or drug abuse patient.[facility] the event this information is protected by the Federal Confidentiality of Alcohol and Drug Abuse Patient Records regulations: The Federal rules restrict any use of the information to criminally investigate or prosecute any alcohol or drug abuse patient.[facility] the event this information is protected by the Federal Confidentiality of Alcohol and Drug Abuse Patient Records regulations: The Federal rules restrict any use of the information to criminally investigate or prosecute any alcohol or drug abuse patient.[facility] the event this information is protected by the Federal Confidentiality of Alcohol and Drug Abuse Patient Records regulations: The Federal rules restrict any use of the information to criminally investigate or prosecute any alcohol or drug abuse patient.[facility] the event this information is protected by the Federal Confidentiality of Alcohol and Drug Abuse Patient Records regulations: The Federal rules restrict any use of the information to criminally investigate or prosecute any alcohol or drug abuse patient.[facility] the event this information is protected by the Federal Confidentiality of Alcohol and Drug Abuse Patient Records regulations: The Federal rules restrict any use of the information to criminally investigate or prosecute any alcohol or drug abuse patient.[facility] the event this information is protected by the Federal Confidentiality of Alcohol and Drug Abuse Patient Records regulations: The Federal rules restrict any use of the information to criminally investigate or prosecute any alcohol or drug abuse patient.[facility] the event this information is protected by the Federal Confidentiality of Alcohol and Drug Abuse Patient Records regulations: The Federal rules restrict any use of the information to criminally investigate or prosecute any alcohol or drug abuse patient.[facility] the event this information is protected by the Federal Confidentiality of Alcohol and Drug Abuse Patient Records regulations: The Federal rules restrict any use of the information to criminally investigate or prosecute any alcohol or drug abuse patient.[facility] the event this information is protected by the Federal Confidentiality of Alcohol and Drug Abuse Patient Records regulations: The Federal rules restrict any use of the information to criminally investigate or prosecute any alcohol or drug abuse patient.[facility] the event this information is protected by the Federal Confidentiality of Alcohol and Drug Abuse Patient Records regulations: The Federal rules restrict any use of the information to criminally investigate or prosecute any alcohol or drug abuse patient.[facility] the event this information is protected by the Federal Confidentiality of Alcohol and Drug Abuse Patient Records regulations: The Federal rules restrict any use of the information to criminally investigate or prosecute any alcohol or drug abuse patient.[facility] the event this information is protected by the Federal Confidentiality of Alcohol and Drug Abuse Patient Records regulations: The Federal rules restrict any use of the information to criminally investigate or prosecute any alcohol or drug abuse patient.[facility] the event this information is protected by the Federal Confidentiality of Alcohol and Drug Abuse Patient Records regulations: The Federal rules restrict any use of the information to criminally investigate or prosecute any alcohol or drug abuse patient.[facility] the event this information is protected by the Federal Confidentiality of Alcohol and Drug Abuse Patient Records regulations: The Federal rules restrict any use of the information to criminally investigate or prosecute any alcohol or drug abuse patient.[facility] the event this information is protected by the Federal Confidentiality of Alcohol and Drug Abuse Patient Records regulations: The Federal rules restrict any use of the information to criminally investigate or prosecute any alcohol or drug abuse patient.[facility] the event this information is protected by the Federal Confidentiality of Alcohol and Drug Abuse Patient Records regulations: The Federal rules restrict any use of the information to criminally investigate or prosecute any alcohol or drug abuse patient.[facility] the event this information is protected by the Federal Confidentiality of Alcohol and Drug Abuse Patient Records regulations: The Federal rules restrict any use of the information to criminally investigate or prosecute any alcohol or drug abuse patient.[facility] the event this information is protected by the Federal Confidentiality of Alcohol and Drug Abuse Patient Records regulations: The Federal rules restrict any use of the information to criminally investigate or prosecute any alcohol or drug abuse patient.[facility] the event this information is protected by the Federal Confidentiality of Alcohol and Drug Abuse Patient Records regulations: The Federal rules restrict any use of the information to criminally investigate or prosecute any alcohol or drug abuse patient.[facility] HospitalIn the event this information is protected by the Federal Confidentiality of Alcohol and Drug Abuse Patient Records regulations: The Federal rules restrict any use of the information to criminally investigate or prosecute any alcohol or drug abuse patient.[facility] HospitalIn the event this information is protected by the Federal Confidentiality of Alcohol and Drug Abuse Patient Records regulations: The Federal rules restrict any use of the information to criminally investigate or prosecute any alcohol or drug abuse patient.[facility] HospitalIn the event this information is protected by the Federal Confidentiality of Alcohol and Drug Abuse Patient Records regulations: The Federal rules restrict any use of the information to criminally investigate or prosecute any alcohol or drug abuse patient.[facility] HospitalIn the event this information is protected by the Federal Confidentiality of Alcohol and Drug Abuse Patient Records regulations: The Federal rules restrict any use of the information to criminally investigate or prosecute any alcohol or drug abuse patient.[facility] HospitalIn the event this information is protected by the Federal Confidentiality of Alcohol and Drug Abuse Patient Records regulations: The Federal rules restrict any use of the information to criminally investigate or prosecute any alcohol or drug abuse patient.[facility] HospitalIn the event this information is protected by the Federal Confidentiality of Alcohol and Drug Abuse Patient Records regulations: The Federal rules restrict any use of the information to criminally investigate or prosecute any alcohol or drug abuse patient.[facility] HospitalIn the event this information is protected by the Federal Confidentiality of Alcohol and Drug Abuse Patient Records regulations: The Federal rules restrict any use of the information to criminally investigate or prosecute any alcohol or drug abuse patient.[facility] HospitalIn the event this information is protected by the Federal Confidentiality of Alcohol and Drug Abuse Patient Records regulations: The Federal rules restrict any use of the information to criminally investigate or prosecute any alcohol or drug abuse patient.[facility] HospitalIn the event this information is protected by the Federal Confidentiality of Alcohol and Drug Abuse Patient Records regulations: The Federal rules restrict any use of the information to criminally investigate or prosecute any alcohol or drug abuse patient.[facility] HospitalIn the event this information is protected by the Federal Confidentiality of Alcohol and Drug Abuse Patient Records regulations: The Federal rules restrict any use of the information to criminally investigate or prosecute any alcohol or drug abuse patient.[facility] HospitalIn the event this information is protected by the Federal Confidentiality of Alcohol and Drug Abuse Patient Records regulations: The Federal rules restrict any use of the information to criminally investigate or prosecute any alcohol or drug abuse patient.[facility] HospitalIn the event this information is protected by the Federal Confidentiality of Alcohol and Drug Abuse Patient Records regulations: The Federal rules restrict any use of the information to criminally investigate or prosecute any alcohol or drug abuse patient.[facility] HospitalIn the event this information is protected by the Federal Confidentiality of Alcohol and Drug Abuse Patient Records regulations: The Federal rules restrict any use of the information to criminally investigate or prosecute any alcohol or drug abuse patient.[facility] HospitalIn the event this information is protected by the Federal Confidentiality of Alcohol and Drug Abuse Patient Records regulations: The Federal rules restrict any use of the information to criminally investigate or prosecute any alcohol or drug abuse patient.[facility] HospitalIn the event this information is protected by the Federal Confidentiality of Alcohol and Drug Abuse Patient Records regulations: The Federal rules restrict any use of the information to criminally investigate or prosecute any alcohol or drug abuse patient.[facility] HospitalIn the event this information is protected by the Federal Confidentiality of Alcohol and Drug Abuse Patient Records regulations: The Federal rules restrict any use of the information to criminally investigate or prosecute any alcohol or drug abuse patient.[facility] HospitalIn the event this information is protected by the Federal Confidentiality of Alcohol and Drug Abuse Patient Records regulations: The Federal rules restrict any use of the information to criminally investigate or prosecute any alcohol or drug abuse patient.[facility] HospitalIn the event this information is protected by the Federal Confidentiality of Alcohol and Drug Abuse Patient Records regulations: The Federal rules restrict any use of the information to criminally investigate or prosecute any alcohol or drug abuse patient.[facility] HospitalIn the event this information is protected by the Federal Confidentiality of Alcohol and Drug Abuse Patient Records regulations: The Federal rules restrict any use of the information to criminally investigate or prosecute any alcohol or drug abuse patient.[facility] HospitalIn the event this information is protected by the Federal Confidentiality of Alcohol and Drug Abuse Patient Records regulations: The Federal rules restrict any use of the information to criminally investigate or prosecute any alcohol or drug abuse patient.[facility] HospitalIn the event this information is protected by the Federal Confidentiality of Alcohol and Drug Abuse Patient Records regulations: The Federal rules restrict any use of the information to criminally investigate or prosecute any alcohol or drug abuse patient.[facility] HospitalIn the event this information is protected by the Federal Confidentiality of Alcohol and Drug Abuse Patient Records regulations: The Federal rules restrict any use of the information to criminally investigate or prosecute any alcohol or drug abuse patient.[facility] HospitalIn the event this information is protected by the Federal Confidentiality of Alcohol and Drug Abuse Patient Records regulations: The Federal rules restrict any use of the information to criminally investigate or prosecute any alcohol or drug abuse patient.[facility] HospitalIn the event this information is protected by the Federal Confidentiality of Alcohol and Drug Abuse Patient Records regulations: The Federal rules restrict any use of the information to criminally investigate or prosecute any alcohol or drug abuse patient.[facility] HospitalIn the event this information is protected by the Federal Confidentiality of Alcohol and Drug Abuse Patient Records regulations: The Federal rules restrict any use of the information to criminally investigate or prosecute any alcohol or drug abuse patient.[facility] HospitalIn the event this information is protected by the Federal Confidentiality of Alcohol and Drug Abuse Patient Records regulations: The Federal rules restrict any use of the information to criminally investigate or prosecute any alcohol or drug abuse patient.[facility] HospitalIn the event this information is protected by the Federal Confidentiality of Alcohol and Drug Abuse Patient Records regulations: The Federal rules restrict any use of the information to criminally investigate or prosecute any alcohol or drug abuse patient.[facility] HospitalIn the event this information is protected by the Federal Confidentiality of Alcohol and Drug Abuse Patient Records regulations: The Federal rules restrict any use of the information to criminally investigate or prosecute any alcohol or drug abuse patient.[facility] HospitalIn the event this information is protected by the Federal Confidentiality of Alcohol and Drug Abuse Patient Records regulations: The Federal rules restrict any use of the information to criminally investigate or prosecute any alcohol or drug abuse patient.[facility] HospitalIn the event this information is protected by the Federal Confidentiality of Alcohol and Drug Abuse Patient Records regulations: The Federal rules restrict any use of the information to criminally investigate or prosecute any alcohol or drug abuse patient.[facility] HospitalIn the event this information is protected by the Federal Confidentiality of Alcohol and Drug Abuse Patient Records regulations: The Federal rules restrict any use of the information to criminally investigate or prosecute any alcohol or drug abuse patient.[facility] HospitalIn the event this information is protected by the Federal Confidentiality of Alcohol and Drug Abuse Patient Records regulations: The Federal rules restrict any use of the information to criminally investigate or prosecute any alcohol or drug abuse patient.[facility] HospitalIn the event this information is protected by the Federal Confidentiality of Alcohol and Drug Abuse Patient Records regulations: The Federal rules restrict any use of the information to criminally investigate or prosecute any alcohol or drug abuse patient.[facility] HospitalIn the event this information is protected by the Federal Confidentiality of Alcohol and Drug Abuse Patient Records regulations: The Federal rules restrict any use of the information to criminally investigate or prosecute any alcohol or drug abuse patient.[facility] HospitalIn the event this information is protected by the Federal Confidentiality of Alcohol and Drug Abuse Patient Records regulations: The Federal rules restrict any use of the information to criminally investigate or prosecute any alcohol or drug abuse patient.[facility] HospitalIn the event this information is protected by the Federal Confidentiality of Alcohol and Drug Abuse Patient Records regulations: The Federal rules restrict any use of the information to criminally investigate or prosecute any alcohol or drug abuse patient.[facility] HospitalIn the event this information is protected by the Federal Confidentiality of Alcohol and Drug Abuse Patient Records regulations: The Federal rules restrict any use of the information to criminally investigate or prosecute any alcohol or drug abuse patient.[facility] HospitalIn the event this information is protected by the Federal Confidentiality of Alcohol and Drug Abuse Patient Records regulations: The Federal rules restrict any use of the information to criminally investigate or prosecute any alcohol or drug abuse patient.[facility] HospitalIn the event this information is protected by the Federal Confidentiality of Alcohol and Drug Abuse Patient Records regulations: The Federal rules restrict any use of the information to criminally investigate or prosecute any alcohol or drug abuse patient.[facility] HospitalIn the event this information is protected by the Federal Confidentiality of Alcohol and Drug Abuse Patient Records regulations: The Federal rules restrict any use of the information to criminally investigate or prosecute any alcohol or drug abuse patient.[facility] Care Teams (unrecognized sec tion and content) Team Status: Active Member Role/Relationship Status Dates Dr. Khanh Rodriguez MD Primary care physician Activ e Team Status: Inactive Member Role/Relationship Status Dates Dr. Khanh Rodriguez MD Primary care physician Activ e Start: January 22, 2025 End: January 22, 2025 Dr. Khanh Rodriguez MD Referring Provider Active Start: January 22, 2025 End: January 22, 2025 JIMMY Griffith Attending physician Active S tart: January 22, 2025 End: January 22, 2025 Team Status: Active Member Role/Relationship Status Dates Dr. Khanh Rodriguez MD Primary care physician Activ e Start: January 23, 2025 Dr. Nabeel Patel MD Attending physician Active Start: January 23, 2025 Dr. Nabeel Patel MD Referring Provider Active Start: January 23, 2025 Team Status: Inactive Member Role/Relationship Status Dates Dr. Khanh Rodriguez MD Primary care physician Activ e Start: January 23, 2025 End: January 23, 2025 Dr. Khanh Rodriguez MD Referring Provider Active Start: January 23, 2025 End: January 23, 2025 Dr. Nabeel Patel MD Attending physician Active Start: January 23, 2025 End: January 23, 2025 Team Status: Inactive Member Role/Relationship Status Dates Dr. Khanh Rodriguez MD Primary care physician Activ e Start: January 31, 2025 End: January 31, 2025 Dr. Khanh Rodriguez MD Attending physician Active Start: January 31, 2025 End: January 31, 2025 Dr. Khanh Rodriguez MD Referring Provider Active Start: January 31, 2025 End: January 31, 2025 Team Status: Inactive Member Role/Relationship Status Dates Dr. Khanh Rodriguez MD Primary care physician Activ e Start: February 24, 2025 End: February 24, 2025 Dr. Nayan Blackmon MD Attending physician Active Start: February 24, 2025 End: February 24, 2025 Dr. Nayan Blackmon MD Referring Provider Active S tart: February 24, 2025 End: February 24, 2025 Team Status: Inactive Member Role/Relationship Status Dates Dr. Khanh Rodriguez MD Primary care physician Activ e Start: February 28, 2025 End: February 28, 2025 Dr. Khanh Rodriguez MD Attending physician Active Start: February 28, 2025 End: February 28, 2025 Dr. Khanh Rodriguez MD Referring Provider Active Start: February 28, 2025 End: February 28, 2025 Team Status: Inactive Member Role/Relationship Status Dates Dr. Khanh Rodriguez MD Primary care physician Activ e Start: March 28, 2025 End: March 28, 2025 Dr. Khanh Rodriguez MD Attending physician Active Start: March 28, 2025 End: March 28, 2025 Dr. Khanh Rodriguez MD Referring Provider Active Start: March 28, 2025 End: March 28, 2025 Team Status: Inactive Member Role/Relationship Status Dates Dr. Khanh Rodriguez MD Primary care physician Activ e Start: April 25, 2025 End: April 25, 2025 Dr. Khanh Rodriguez MD Attending physician Active Start: April 25, 2025 End: April 25, 2025 Dr. Khanh Rodriguez MD Referring Provider Active Start: April 25, 2025 End: April 25, 2025 Team Status: Inactive Member Role/Relationship Status Dates Dr. Khanh Rodriguez MD Primary care physician Activ e Start: April 29, 2025 End: April 29, 2025 Dr. Khanh Rodriguez MD Referring Provider Active Start: April 29, 2025 End: April 29, 2025 SAMUEL Mario Attending physician Active Start: April 29, 2025 End: April 29, 2025 Team Status: Inactive Member Role/Relationship Status Dates Dr. Khanh Rodriguez MD Primary care physician Activ e Start: May 08, 2025 End: May 08, 2025 Dr. Khanh Rodriguez MD Referring Provider Active Start: May 08, 2025 End: May 08, 2025 JIMMY Dawson Attending physician Active Sta rt: May 08, 2025 End: May 08, 2025 Team Status: Inactive Member Role/Relationship Status Dates Dr. Khanh Rodriguez MD Primary care physician Activ e Start: May 08, 2025 End: May 08, 2025 Dr. Jacob Amor MD Attending physician Active Start: May 08, 2025 End: May 08, 2025 Team Status: Active Member Role/Relationship Status Dates Dr. Khanh Rodriguez MD Primary care physician Activ e Start: May 13, 2025 JIMMY Dawson Attending physician Active Sta rt: May 13, 2025 JIMMY Dawson Referring Provider Active Star t: May 13, 2025 Team Status: Inactive Member Role/Relationship Status Dates Dr. Khanh Rodriguez MD Primary care physician Activ e Start: May 21, 2025 End: May 21, 2025 Dr. Khanh Rodriguez MD Referring Provider Active Start: May 21, 2025 End: May 21, 2025 JIMMY Griffith Attending physician Active S tart: May 21, 2025 End: May 21, 2025 Team Status: Active Member Role/Relationship Status Dates Dr. Khanh Rodriguez MD Primary Care Provider Active Team Status: Inactive Member Role/Relationship Status Dates Dr. Khanh Rodriguez MD Primary Care Provider Active Start: January 22, 2025 End: January 22, 2025 Dr. Khanh Rodriguez MD Referring Provider Active Start: January 22, 2025 End: January 22, 2025 JIMMY Griffith Attending Provider Active St art: January 22, 2025 End: January 22, 2025 Team Status: Active Member Role/Relationship Status Dates Dr. Khanh Rodriguez MD Primary Care Provider Active Start: January 23, 2025 Dr. Nabeel Patel MD Attending Provider Active Start: January 23, 2025 Dr. Nabeel Patel MD Referring Provider Active Start: January 23, 2025 Team Status: Inactive Member Role/Relationship Status Dates Dr. Khanh Rodriguez MD Primary Care Provider Active Start: January 23, 2025 End: January 23, 2025 Dr. Khanh Rodriguez MD Referring Provider Active Start: January 23, 2025 End: January 23, 2025 Dr. Nabeel Patel MD Attending Provider Active Start: January 23, 2025 End: January 23, 2025 Team Status: Inactive Member Role/Relationship Status Dates Dr. Khanh Rodriguez MD Primary Care Provider Active Start: January 31, 2025 End: January 31, 2025 Dr. Khanh Rodriguez MD Attending Provider Active Start: January 31, 2025 End: January 31, 2025 Dr. Khanh Rodriguez MD Referring Provider Active Start: January 31, 2025 End: January 31, 2025 Team Status: Active Member Role/Relationship Status Dates Dr. Khanh Rodriguez MD Primary Care Provider Active Start: February 24, 2025 Dr. Nayan Blackmon MD Attending Provider Active S tart: February 24, 2025 Dr. Nayan Blackmon MD Referring Provider Active S tart: February 24, 2025 Team Status: Inactive Member Role/Relationship Status Dates Dr. Khanh Rodriguez MD Primary Care Provider Active Start: February 28, 2025 End: February 28, 2025 Dr. Khanh Rodriguez MD Attending Provider Active Start: February 28, 2025 End: February 28, 2025 Dr. Khanh Rodriguez MD Referring Provider Active Start: February 28, 2025 End: February 28, 2025 Quality Controller Relationship Specialty Start Date End Date Khanh Rodriguez MD [address] [place] [address] PCP - General Internal Medicine 01/25/24 Quality Controller Relationship Specialty Start Date End Date Abdirahman Conley MD [address] [place] [address] [place] [address] PCP - General Internal Medicine 06/05/19 Team Status: Active Member Role Status Dates Dr. Khanh Rodriguez MD Primary Care Provider Active Team Status: Active Member Role Status Dates Dr. Khanh Rodriguez MD Primary Care Provider Active Dr. Uday Brooks MD Admit Provider, Attending Provider, Referring Provider, Other Provider Active Team Status: Active Member Role Status Dates Dr. Khanh Rodriguez MD Primary Care Provider Active Dr. Uday Brooks MD Admit Provider, Referring Provider, Other Provider Active Kesha Hoover PA, PA-C Attending Provider Active Team Status: Inactive Member Role Status Dates Dr. Khanh Rodriguez MD Primary Care Provider, Refer ring Provider Active Kesha Hoover PA, PA-C Attending Provider Active Team Status: Active Member Role Status Dates Dr. Khanh Rodriguez MD Primary Care Provider Active Dr. Jacob Amor MD Attending Provider Active Dr. Uday Brooks MD Referring Provider Active Team Status: Inactive Member Role Status Dates Dr. Khanh Rodriguez MD Primary Care Provider, Refer ring Provider Active Kesha Hoover PA, PA-C Active Dr. Uday Brooks MD Attending Provider Active Team Status: Active Member Role Status Dates Dr. Khanh Rodriguez MD Primary Care Provider Active Mariela Martines CASTING REPAIRER, CASTING REPAIRER-C Other Provider Active Thalia Barroso CASTING REPAIRER, CASTING REPAIRER-C Attending Provider, Referri ng Provider Active Team Status: Inactive Member Role Status Dates Dr. Khanh Rodriguez MD Primary Care Provider, Refer ring Provider Active Dr. Nabeel Patel MD Attending Provider Active Team Status: Inactive Member Role Status Dates Dr. Khanh Rodriguez MD Primary Care Provider, Refer ring Provider Active Cesia Perry CASTING REPAIRER, CASTING REPAIRER-C Attending Provider Active Team Status: Inactive Member Role Status Dates Dr. Khanh Rodriguez MD Primary Care Provider, Refer ring Provider Active Dr. Alex Ha DO Attending Provider Active Team Status: Inactive Member Role Status Dates Dr. Khanh Rodriguez MD Primary Care Provider, Refer ring Provider Active Dr. Shabbir Galaviz MD Attending Provider Active Team Status: Active Member Role Status Dates Dr. Khanh Rodriguez MD Primary Care Provider Active Mariela Martines CASTING REPAIRER, CASTING REPAIRER-C Attending Provi douglas, Referring Provider, Other Provider Active Team Status: Inactive Member Role Status Dates Dr. Khanh Rodriguez MD Primary Care Provider Active Dr. Uday Brooks MD Admit Provider, Attending Provider, Referring Provider Active Team Status: Inactive Member Role Status Dates Dr. Khanh Rodriguez MD Primary Care Provider Active Mariela Martines CASTING REPAIRER, CASTING REPAIRER-C Attending Provider, Referring Provider Active Team Status: Active Member Role Status Dates Dr. Khanh Rodriguez MD Primary Care Provider Active Dr. Nabeel Patel MD Attending Provider, Referrin g Provider Active Team Status: Active Member Role Status Dates Dr. Khanh Rodriguez MD Primary Care Provider Active Team Status: Inactive Member Role Status Dates Dr. Khanh Rodriguez MD Primary Care P rovider, Attending Provider, Referring Provider Active Team Status: Active Member Role Status Dates Dr. Khanh Rodriguez MD Primary Care Provider, Refer ring Provider Active Mariela Martines CASTING REPAIRER, CASTING REPAIRER-C Attending Provider, Other Pro vider Active Team Status: Active Member Role Status Dates Dr. Khanh Rodriguez MD Primary Care P rovider, Attending Provider, Referring Provider Active Team Status: Inactive Member Role Status Dates Dr. Khanh Rodriguez MD Primary Care Provider, Refer ring Provider Active Mariela Martines CASTING REPAIRER, CASTING REPAIRER-C Attending Provider Active Quality Controller Relationship Specialty Start Date End Date JarvisAbdirahman Rene [address] [place] [address] PCP - General Internal Medicine 06/05/19 Reason for Visit (unrecogniz ed section and content) Reason Comments Physical Therapy Specialty Diagnoses / Procedures Referred By Contac t Referred To Contact [facility] Diagnoses Degenerative scoliosis Lumbar radiculopathy Chronic right-sided low back pain with right-sided sciatica Procedures CONSULT TO PHYSICAL THERAPY PHYSICAL THERAPY EVALUATION HIGH COMPLEX 45 MINS Monse Merlos PA-C [address] [place] [address] Phone: tel: fax: [facility] [place] [address] Referral ID Status Reason Start Date Expiration Date Visits Requested Visits Authorized [id number] Authorized PCP Requested Referral Auto-Generate d Referral 06/12/2024 06/12/2025 99 99 Reason Comments PT Eval Patient Education Specialty Diagnoses / Procedures Referred By Contac t Referred To Contact [facility] Diagnoses Degenerative scoliosis Lumbar radiculopathy Chronic right-sided low back pain with right-sided sciatica Procedures CONSULT TO PHYSICAL THERAPY PHYSICAL THERAPY EVALUATION HIGH COMPLEX 45 MINS Monse Merlos PA-C [address] [place] [address] Phone: tel: fax: [facility] [address] [place] [id number] Referral ID Status Reason Start Date Expiration Date Visits Requested Visits Authorized [id number] Authorized PCP Requested Referral Auto-Generate d Referral 06/12/2024 06/12/2025 99 99 Reason Comments PT Discharge Specialty Diagnoses / Procedures Referred By Contac t Referred To Contact [facility] Diagnoses other malaise R53.81 Procedures other malaise R53.81 Solo Calderón [address] [facility] [address] [place] [address] [facility] [address] [place] [address] Referral ID Status Reason Start Date Expiration Date V isits Requested Visits Authorized [id number] Authorized 09/04/2023 09/03/2024 99 99 Reason Comments PT Progress Note Specialty Diagnoses / Procedures Referred By Contac t Referred To Contact [facility] Diagnoses Venous ulcer (HCC) Venous (peripheral) insufficiency Secondary lymphedema Procedures CONSULT TO PHYSICAL THERAPY PHYSICAL THERAPY EVALUATION HIGH COMPLEX 45 MINS Gt Yin DO [address] [place] [address] [facility] [address] [address] [address] Referral ID Status Reason Start Date Expiration Date Visits Requested Visits Authorized [id number] Authorized PCP Requested Referral Auto-Generate d Referral 02/27/2024 02/26/2025 99 99 Reason Comments PT Eval Reason Comments New Patient Reason Comments New Pain Reason Comments Appointment Reason Comments Established Patient Reason Comments New Patient Low Back Pain Right Hip Pain Left Hip Pain Leg Pain Right upper Specialty Diagnoses / Procedures Referred By Contac t Referred To Contact [facility] Diagnoses Degenerative scoliosis Procedures CONSULT TO [facility] OFFICE/OUTPATIENT NEW HIGH MDM 60 MINUTES Marisela Mccarty MD [address] [address] Referral ID Status Reason Start Date Expiration Date V isits Requested Visits Authorized [id number] Closed PCP Requested Referral 04/02/2024 04/02/2025 1 1 Reason Comments Patient Question Reason Comments Wound Evaluation Right leg wound Reason Comments [employer] Management FOR IDC USE ONLY Reason Comments Wound Check right lower leg Specialty Diagnoses / Procedures Referred By Tara bravo Referred To Contact [facility] Diagnoses Degenerative scoliosis Lumbar radiculopathy Chronic right-sided low back pain with right-sided sciatica Procedures PHYSICAL THERAPY EVALUATION HIGH COMPLEX 45 MINS Monse Merlos, JOSE ALEJANDRO [address] [place] [address] Phone: tel: fax: [facility] [address] [place] [address] FOR RECORDS PERTAINING TO PATIENTS WHO ARE [...] BE BASED ON THE PRIMARY CLINICAL RECORDS. [facility] [employer] [facility]. provides no warranty or guarantee of the accuracy or completeness of information in this document.
== END 2025-06-06 17:45 | disposition left against medical advice (07) ==
LOC: ED 18:01
PROVIDERS: PCP Internal Medicine
DX: Z53.21 Procedure and treatment not carried out due to patient leaving prior to being seen by health care provider (principal)

== ENCOUNTER 2025-06-07 16:48 | Inpatient (IN) | payer MEDICARE, OTHER, SELFPAY ==
[2025-06-07 16:49] VITALS: BP 115/45; PULSE 59; RESP 16; TEMP 36.8; O2SAT 100; BMI 25.7
[2025-06-07 16:54] VITALS: BP 115/45; PULSE 57; RESP 12; TEMP 36.8; O2SAT 100
--- NOTE | 2025-06-07 17:04 | CM.ED ---
Social Work Date of referral: 06/07/25 Reason for referral: Advanced Care Directives (ACD's) not in place. Referred by: Social Work identification Patient provided consent to social work visit. Main Line Station Engineer requested patient to bring in a copy of ACD's when able which patient was agreeable to. Claudia Nevarez, CASE LINER, SALES REPRESENTATIVE [employer]
--- NOTE | 2025-06-07 17:19 | EKG12_ITS ---
Test Reason : EDEMA Blood Pressure : */* mmHG Vent. Rate : 57 BPM Atrial Rate : 57 BPM P-R Int : 166 ms QRS Dur : 80 ms QT Int : 520 ms P-R-T Axes : -4 11 19 degrees QTcB Int : 506 ms Sinus bradycardia Prolonged QT Abnormal ECG Confirmed by DIVINE GAR MD [id number]), assignment desk editor ZEKE JIMENEZ ([id number]) on 06/09/2025 8:33:24 AM Referred By: HU Confirmed By: DIVINE GAR MD
--- NOTE | 2025-06-07 17:20 | EX.ED.DYSGE1 ---
HPI History of Present Illness Chief Complaint: Edema Informant: patient Onset/Context/Timing Onset: Days Context: Gradual Onset Timing: Continuous Current Severity: Moderate Maximum Severity: Moderate Narrative Narrative: 74-year-old female history of liver cirrhosis and prior breast cancer. Denies any cardiac history. Recent hospitalized at [facility]. States that since she has been home she has had increased swelling in both lower extremities and a 13 pound weight gain. She denies any history of CHF. She states she is taking Lasix 40 mg 3 times a day and she was only prescribed twice a day. In spite of that her swelling is still getting worse. She denies any chest pain or shortness of breath. Prior similar symptoms: Yes Recent Illness/Hospitalization: Yes [facility] Medical History Screening for breast cancer Thrombocytopenia Ascites CHF (congestive heart failure) Dyspnea Skin cancer Encounter for education Wears glasses Cancer Alcohol use Open wound High cholesterol Pulmonary embolism Back pain Injury of back History of ulceration Non-smoker History of edema Breast cancer Abnormal mammogram of left breast Left breast lump Squamous cell skin cancer Umbilical hernia Preoperative evaluation to rule out surgical contraindication Hypokalemia Cellulitis of right leg Screening for thyroid disorder History of skin cancer Ulcer of right leg Hx of staphylococcal infection Hypertension Dermatitis Osteoporosis Hyponatremia Elevated liver enzymes Post-menopausal Varicose veins of both lower extremities Hypotension Age-related physical debility Left hip pain GERD (gastroesophageal reflux disease) Bleeding ulcer Broken hip Carotid stenosis, right Vertigo Arthritis Cirrhosis Home Medications ?Medication ?Instructions ?Recorded ?Last Taken ?Type compress.stocking,knee,reg,lrg #2 ea 05/09/23 Unknown Rx acetaminophen 500 mg capsule 500 mg PO Q6H PRN pain 06/08/23 Unknown History calcium 600 mg (as 1 tab PO BID 12/27/23 12/25/23 History carbonate)-vitamin D3 5 mcg (200 unit) tablet (Calcium 600 + D(3)) anastrozole 1 mg tablet 1 mg PO DAILY #90 tabs 04/22/24 Unknown Rx furosemide 40 mg tablet 40 mg PO BID DIURETIC #180 tabs 11/27/24 Unknown Rx pantoprazole 40 mg tablet,delayed 40 mg PO DAILY GERD 3 months #90 11/27/24 Unknown Rx release tabs spironolactone 50 mg tablet 50 mg PO BID #180 tabs 11/27/24 Unknown Rx potassium chloride 20 mEq 20 meq PO BID SUPPLEMENT #90 tabs 01/13/25 Unknown Rx tablet,extended release(part/cryst) nadolol 20 mg tablet 20 mg PO DAILY BP #90 tabs 03/05/25 Unknown Rx tramadol 50 mg tablet 50 mg PO TID PRN pain #28 tabs 05/21/25 Unknown Rx Allergy/AdvReac Type Severity Reaction Status Date / Time No Known Allergies Allergy Verified 06/07/25 16:49 Family History Mother Alzheimer disease Father Heart disease Diabetes Surgical History History of kyphoplasty History of left mastectomy Hx of tonsillectomy Status post Mohs surgery History of left hip replacement History of knee replacement History of hysterectomy Social History housing: house Smoking Status: Never smoker alcohol intake: former substance use type: does not use ROS ROS ED ROS Narrative Denies recent illness. Bilateral worsening lower leg swelling. Constitutional Constitutional ED: Denies chills or fever(s) Eyes Eyes: Denies blurry vision ENT ENT ED: Denies ear pain Cardiovascular Cardiovascular: Denies chest pain Respiratory/Chest Respiratory/Chest: Denies cough, dyspnea or dyspnea on exertion Gastrointestinal Gastrointestinal: Denies abdominal pain, diarrhea, nausea or vomiting Genitourinary Genitourinary ED: Denies dysuria or hematuria Musculoskeletal Musculoskeletal: Denies arthralgias Integumentary Denies abscess Neurologic Neurologic: Denies headache(s) Psychiatric Psychiatric: Denies anxiety Endocrine Endocrinology: Denies cold intolerance Hematologic/Lymphatic Hematologic/Lymphatic: Reports none Allergic/Immunologic Allergic/Immunologic ED: Denies mouth swelling, tongue swelling or urticaria EXAM Physical Exam Narrative Exam Narrative: 74-year-old female sitting upright bed. No acute distress. Vital signs stable afebrile. Pulse ox 9% on room air no signs hypoxic. H EENT exam pupils round reactive to light. Moist extremities. Neck nontender no JVD. Lungs clear to auscultation bilaterally. Heart regular rhythm rate about 60 no murmur. Chest wall ribs nontender. Abdomen soft nondistended normal bowel sounds without peritoneal signs. No significant ascites on abdominal exam. Moving all 4 extremities. She did have 2-3+ pitting edema both lower extremities all the way up to her groin bilaterally. Pitting. Dorsi plantarflexion intact in both lower extremities. She does have wound wraps on both lower extremities. Neurologically she is awake alert. Answering questions following commands. No focal motor deficits. Const Vital Signs: 06/07/25 16:49 06/07/25 16:54 06/07/25 17:05 Temperature 98.3 F 98.3 F Temperature Source Oral Oral Pulse Rate 59 L 57 L Respiratory Rate 16 12 Respiratory Effort Normal Respiratory Pattern Normal Blood Pressure 115/45 L 115/45 L Blood Pressure Mean 68 68 Pulse Ox 100 100 Oxygen Delivery Method Room Air Room Air Positive well nourished and well developed; Negative for cachectic, contractures or unkempt General Appearance ED: well developed and NAD; Negative for unkempt, cachectic, contractures, cyanotic, diaphoretic or pallor Nutritional Appearance: Negative for cachectic HEENT Negative for trauma or tenderness Eyes PERRL and EOMs intact bilaterally General Eye ED: Negative for pale conjunctiva or scleral icterus Neck no lymphadenopathy, supple and no JVD Chest Wall inspection of chest normal and palpation of chest normal Resp normal respiratory effort and clear to auscultation bilaterally Cardio regular rate, regular rhythm, S1 normal heart sound, S2 normal heart sound and no murmurs GI normal to inspection, nondistended, normoactive bowel sounds, non-tender, non-distended and no masses Auscultation: normoactive bowel sounds Palpation: soft; Negative for tender, guarding or rebound tenderness present Back/Spine no CVA tenderness Extremity Negative for normal to inspection Extremity Narrative: 3+ pitting edema both lower extremities. General Extremety ED: Yes edema General Extremity: edema Neuro oriented x3 and CN's II-XII intact bilaterally Sensorium / Orientation: alert; Negative for orientation impaired, lethargic or stuporous Motor Exam: strength 5/5 throughout Psych mental status grossly normal Appearance: Negative for unkempt Skin no rashes or lesions noted and No no wounds Skin Narrative: Skin no wounds. Blistering. General Skin Exam: Negative for jaundice or pallor Wounds: wounds noted MDM MDM MDM Narrative Medical decision making narrative: 74-year-old female reportedly no history of cardiac disease but has 2-3+ pitting edema both lower extremities. In spite of being on 40 of Lasix 3 times a day. Differential would include peripheral edema secondary to venous insufficiency, assess cirrhosis and ascites versus cardiac etiology versus other. Repeat exam unchanged. Had a long discussion with the patient. She is actually increased her Lasix to 3 times a day she is taking iron 20 mg/day. Her peripheral edema in her lower extremities is getting worse. She requested to be admitted to the hospital. I will give her a dose of IV Lasix I have the hospitalist on page. History & Record Review Discussion w/independent historian: Patient Additional record(s) reviewed:: Prior inpatient record, Prior outpatient record, Prior ED visit and Prior labs Lab Data Attestation: I reviewed the patient's lab results. Lab results narrative: CBC shows a white count 5.8 H&H 9.6 and 26.8 consistent with her prior anemia. Platelets 161. Sodium is 130. Gap is 13. BUN and creatinine are 10 and 0.6. Glucose 105. Liver enzymes show total bilirubin 3.6. AST 87. An alk phos of 196. Again consistent with prior. Labs: Laboratory Results - last 24 hr 06/07/25 17:46 WBC 5.8 RBC 2.53 L Hgb 9.6 L Hct 26.8 L MCV 105.9 H MCH 37.9 H MCHC 35.8 RDW Std Deviation 56.3 H RDW Coeff of Carlyle 14.5 Plt Count 161 MPV 9.5 Immature Gran % (Auto) 0.300 Neut % (Auto) 70.0 Lymph % (Auto) 18.3 L [place] % (Auto) 8.6 Eos % (Auto) 2.1 Baso % (Auto) 0.7 Absolute Neuts (auto) 4.1 Absolute Lymphs (auto) 1.07 Nucleated RBC % 0 Sodium 130 L Potassium 4.2 Chloride 95 L Carbon Dioxide 22.5 Anion Gap 13 BUN 10 Creatinine 0.69 L Estim Creat Clear Calc 59.34 Est GFR (MDRD) Non-Af 92 BUN/Creatinine Ratio 14.2 Glucose 105 H Calcium 9.1 Total Bilirubin 3.60 H AST 87 H ALT 25 Alkaline Phosphatase 196 H Troponin T High Sens 27 H NT pro BNP II 848 Total Protein 6.6 Albumin 3.6 Globulin 3.0 Albumin/Globulin Ratio 1.2 Radiography Chest X-Ray - ED: 1 View, Read by ED Physician, Heart, Lungs, Mediastinum, Bony Structures, No Acute Disease and Chronic Changes Diagnostic Testing: Chest x-ray, portable, single view interpreted by myself shows normal cardiac silhouette. Normal lung crabtree. No effusions. Chronic changes. Rhythm Strip Rhythm Strip: Sinus bradycardia Rate: 57 Ectopy: None EKG Initial EKG: Interpretation: No Acute Injury Pattern and Sinus Bradycardia Comments: Sinus bradycardia rate of 57 no acute signs of NV or ischemia. No dysrhythmia. Discharge Plan Dx/Rx/DC Orders Clinical Impression: Peripheral edema, History of cirrhosis, Chronic anemia, Chronic hyponatremia Disposition Disposition: Acute Care Hospital [facility]
--- OUTSIDE RECORDS SUMMARY | 2025-06-07 17:29 | XMS RPT_ITS | CCD ---
Author Organization [facility] CliniSynm Care Team Providers Care Luster Repairer Name Role Phone LILI ALVAREZ Unavailable Unavailable [...] Provider JOSE ALEJANDRO Carroll Attending Provider Martines ELECTRON MICROPROBE OPERATOR, ELECTRON MICROPROBE OPERATOR-C Mariela Referring Provider Martines ELECTRON MICROPROBE OPERATOR, ELECTRON MICROPROBE OPERATOR-C Mariela Other Provider Chio ELECTRON MICROPROBE OPERATOR, ELECTRON MICROPROBE OPERATOR-C Thalia E Attending Provider Dr. Khanh Rodriguez Primary Care Provider Dr. Jacob Amor Attending Provider Dr. Uday Brooks Referring Provider CeDr. Uday clemens Admit Provider Dr. Uday Brooks Attending Provider Dr. Uday Brooks Other Provider JOSE ALEJANDRO Carroll Attending Provider Dr. Khanh Rodriguez Referring Provider Martines ELECTRON MICROPROBE OPERATOR, ELECTRON MICROPROBE OPERATOR-C Mariela Other Provider Chio ELECTRON MICROPROBE OPERATOR, ELECTRON MICROPROBE OPERATOR-C Thalia E Attending Provider Chio ELECTRON MICROPROBE OPERATOR, ELECTRON MICROPROBE OPERATOR-C Thalia E Referring Provider [phone] Dr. Nabeel Patel Attending Provider Dr. Alex Ha Attending Provider Orlando ELECTRON MICROPROBE OPERATOR, ELECTRON MICROPROBE OPERATOR-C Cesia Attending Provider Dr. Shabbir Galaviz Attending [...] Dr. Khanh Rodriguez Referring Provider [phone] Conrad ELECTRON MICROPROBE OPERATOR, ELECTRON MICROPROBE OPERATOR-C Mariela Other Provider Chio ELECTRON MICROPROBE OPERATOR, ELECTRON MICROPROBE OPERATOR-C Thalia E Attending Provider Chio ELECTRON MICROPROBE OPERATOR, ELECTRON MICROPROBE OPERATOR-C Thalia E Referring Provider Dr. Shabbir Galaviz Referring Provider [phone] JIMMY Flores Attending Provider [phone] Khanh Rodriguez Attending Provider [phone] Dr. Khanh Rodriguez Primary Care Provider [phone] Dr. Khanh Rodriguez Referring Provider [phone] Dr. Khanh Rodriguez Primary Care Provider [phone] Dr. Khanh Rodriguez Referring Provider [phone] Dr. Uday Brooks Attending Provider Orlando ELECTRON MICROPROBE OPERATOR, ELECTRON MICROPROBE OPERATOR-C Cesia Attending Provider Dr. Shabbir Galaviz Attending Provider [phone] JIMMY Flores Referring Provider [phone] Shabbir Galaviz Referring Provider [phone] Shabbir Galaviz Other Provider JIMMY Flores Attending Provider Dr. Khanh Rodriguez Attending Provider [phone] Bonifacio Nation Attending Provider [phone] JIMMY Méndez Attending Provider [phone] Dr. [...] Unavailable Abdirahman Conley MD Primary Care Provider [phone] Khanh Rodriguez MD Primary Care Provider [phone] Tuan, Rosales Primary Care Unavailable Tuan, Rosales [...] OLEGHE, EFEWONGBE B Primary Care Unavailable WAYT, SOOL P Referring Unavailable O'CARLOS, LISETH Attending Unavailable [...] Dr. Khanh Rodriguez MD Referring Provider [phone] Solo Méndez Attending Provider Dr. Nabeel Patel MD Attending Provider Dr. Nabeel Patel MD Referring Provider Michael ARAUJO, Dr. Orozco Attending Provider [phone] Lorri ARAUJO, Dr. Spicer Attending Provider [phone] Lorri ARAUJO, Dr. Spicer Referring Provider [place] ELECTRON MICROPROBE OPERATOR-CLiseth Attending Provider Jessica PA, Tracy Attending Provider [phone] Mt ARAUJO, Dr. James Attending Provider Jessica PA, Tracy Unavailable Michael ARAUJO, Dr. Orozco Primary Care Physician Solo Méndez Attending Physician Amanda ARAUJO, Dr. Lees Attending Physician Michael ARAUJO, Dr. Orozco Attending Physician [phone] Lorri ARAUJO, Dr. Spicer Attending Physician [phone] [place] ELECTRON MICROPROBE OPERATOR-CLiseth Attending Physician Jessica PA, Tracy Attending Physician [...] Unavailable Oleghe, Efewongbe Primary Care Unavailable Orlando ELECTRON MICROPROBE OPERATOR, Cesia Referring Unavailable Orlando ELECTRON MICROPROBE OPERATOR, Cesia Attending Unavailable Oleghe, Efewongbe Referring Unavailable Oleghe, Efewongbe Primary Care Unavailable [place] ELECTRON MICROPROBE OPERATOR, Cesia Attending Unavailable Oleghe, Efewongbe Referring Unavailable [...] Translations: [BETAMETHASONE DIPROPIONATE] Drug Allergy 0 Intolerance [facility] Rep[facility] (20 sources) clarithromycin; Translations: [CLARITHROMYCIN (BULK)] Drug Allergy 0 Other: See Comments [facility] (19 sources) Chlorhexidine Drug Allergy 2 Other, Rash [facility] Medications Current Medications Medication Drug Class(es) Dates Sig (Normalized) Sig (Original) acetaminophen 500 mg oral capsule (20 sources) Start: 06-08-2023 take 1 capsule by mouth every six hours as needed for pain acetaminophen (T YLENOL) 325 mg cap Take by mouth. Active calcium carbonate 1500 mg / cholecalciferol 200 unt oral tablet (16 sources) Vitamin D Start: 12-27-2023 calcium phosphate [...] venous insufficiency 20-30 mmHg Compress.Stocking,Knee,Reg,L rg misc (13 sources) Start: 05-09-2023 Compress.Stocking,Knee,Reg,L rg misc Active [...] (DR/EC) Discontinued 40 mg PO DAILY 90 1 April 22, 2022 12:46pm December 30, 2023 1:29pm GERD Start: 03-25-2022 End: 03-30-2022 take 1 tablet by mouth once daily Pantoprazole 20 mg tablet,delayed release (DR/EC) Discontinued 20 mg PO DAILY March 25, 2022 12:00am March 30, 2022 10:26am romosozumab-aqqg (EVENITY WHITE BCUTANEOUS) (19 sources) romosozumab-aqqg (EVENITY SUBCUTANEOUS) Inject subcutaneously. Given by Infusion center [facility] Active Completed/Discontinued Medications Medication Drug Class(es) Dates Sig (Normalized) Sig (Original) alendronic acid 70 mg oral tablet (20 sources) Bisphosphonate Start: 04-12-2022 End: 04-26-2024 take 1 tablet by mouth every week Alendronate (Fosamax) 70 mg tablet Discontinued 70 mg PO EVERY WEEK 30 May 09, 2023 3:49pm December 27, 2023 12:17pm JOINT SUPPORT anastrozole 1 mg oral tablet (20 sources) Aromatase Inhibitor Start: 07-10-2023 End: 04-22-2024 take 1 tablet by mouth once daily Anastrozole 1 mg tablet Discontinued 1 mg PO DAILY 90 October 19, 2023 3:28pm April 22, 2024 10:11am Malignant neoplasm of breast Malignant neoplasm of unspecified site of unspecified female breast ascorbic acid 500 mg oral tablet (15 sources) Vitamin C Start: 12-30-2023 End: 05-31-2024 [...] mg PO THREE TIMES A DAY 21 January 20, 2023 12:00am April 26, 2023 [...] Active ferrous sulfate 325 mg oral tablet (15 sources) Start: 12-30-2023 End: 01-26-2024 take 1 [...] on above: Take 2 tablets by mo [facility] twice daily. ibandronic acid 150 mg oral tablet (20 sources) Bisphosphonate Start: 2 End: 2 take 1 tablet by mouth every month Ibandronate (Boniva) 150 mg tablet Discontinued 150 mg PO EVERY MONTH 14 1 April 11, 2022 12:00am April 12, 2022 [...] times daily. lactulose 667 mg/ml oral solution (15 sources) Osmotic Laxative Start: 12-30-19 End: 01-26-20 [...] 2022 9:24am mecobalamin 1 mg oral lozenge (18 sources) Start: 05-24-20 End: 12-27-19 take 1000 [...] End: 05-23-2024 MILK THISTLE ORAL Take by mo uth once daily. 05/23/2024 Discontinued MILK THISTLE ORA [...] Comment on above: TAKE ONE TABLET BY M OUT EVERY DAY oxyCODONE hydrochloride 5 mg oral tablet (13 sources) Opioid Agonist Start: 05-15-20 End: 05-31-20 [...] 20 meq PO TWICE A DAY 90 March 20, 2024 6:53pm January 13, 2025 1:40pm SUPPLEMENT Start: 04-13-2018 End: 11-03-2023 take 1 tablet by mouth once daily Potassium Chloride 20 mEq tablet,ER particles/crystals Discontinued 20 meq PO DAILY 90 July 25, 2023 11:52am November 03, 2023 2:17pm SUPPLEMENT Comment on above: Take 20 mEq by mouth once daily. Romosozumab-Aqqg (13 sources) Start: 04-26-2024 End: 04-21-2025 Romosozumab-Aqqg (Evenity) [...] Start: 01-29-2021 take 1 tablet by bob th twice daily spironolactone 25 mg tablet take 1 tablet by oral route twice daily - Active Start: 05-12-2017 End: 11-27-2024 take 1 tablet by mouth twice daily Spironolactone 50 mg tablet Discontinued 50 mg PO TWICE A DAY 180 0 June 26, 2024 6:56pm November 27, 2024 7:15pm Comment on above: Take 1 tablet by bob th twice daily. traMADol hydrochloride 50 mg oral tablet (20 sources) Opioid Agonist Start: End: take 1 tablet by mouth three times daily as needed for pain Tramadol 50 mg tablet Discontinued 50 mg PO THREE TIMES A DAY as needed for pain 28 0 April 29, 2025 1:20pm May 21, 2025 2:49pm Start: 06-13-2023 End: 10-25-2023 take 1 tablet [...] mouth every 6 hours as needed. Active triamcinolone acetonide 0.001 mg/mg topical ointment (20 sources) Corticosteroid Start: 01-20-2023 End: 04-26-2023 Triamcinolone Acetonide 0.1 % ointment Discontinued 1 NMA TOPICAL DAILY as needed for Dermatitis 80 1 January 20, 2023 10:16am April 26, 2023 10:34am Start: 05-31-2022 End: 04-26-2023 Triamcinolone Acetonide 0.1 % ointment Discontinued 1 NMA TOPICAL DAILY as needed for Dermatitis 80 1 May 31, 2022 12:00am January 20, 2023 [...] the left calf. Coagulation and hemorrhagic disorders (18 sources) Thrombocytopenic disorder; Translations: [Thrombocytopenia, unspecified] 12-27-2023 [...] [Age-related osteoporosis without current pathological fracture] Onset: 4 Chronic Other acquired deformities (2 sources) Degenerative disorder of musculoskeletal system; Translations: [Other secondary scoliosis, site unspecified] 04-02-2024 Chronic Other acquired deformities (1 source) Other secondary scoliosis, site unspecified; Translations: [Degenerative scoliosis] Onset: 4 Chronic Other acquired deformities (13 sources) Scoliosis deformity of spine; Translations: [Scoliosis, [...] closed fracture] 01-22-2025 Episodic Other gastrointestinal disorders (19 sources) Diarrhea; Translations: [Diarrhea, unspecified] 11-15-2023 Episodic Other gastrointestinal disorders (6 sources) Diarrhea, unspecified; Translations: [Diarrhea] 11-15-2023 Episodic Other gastrointestinal disorders (16 sources) Ascites; Translations: [Other ascites] 12-27-2023 Episodic [...] wound(s) (multiple) of unspecified site(s), complicated] Onset: 5 03-03-2023 Episodic Other injuries and conditions due to external causes (13 sources) Open wound; Translations: [Other injury of [...] of ] 11-15-2023 Episodic Other liver diseases (19 sources) Decompensated cirrhosis of liver; Translations: [Hepatic [...] Dyspnea, unspecified; Translations: [Other respiratory abnormalities] Onset: 5 11-03-2023 Episodic Other nervous system disorders (12 sources) Chronic pain; Translations: [Other chronic pain] [...] neoplasm of breast, unspecified screening modality] Onset: Episodic Other skin disorders (12 sources) Rash [...] Translations: [Edema] 02-01-2023 Episodic Residual codes; unclassified (13 sources) Edema of lower extremity; Translations: [Localized edema] 02-16-2024 Episodic Residual codes; unclassified (6 sources) H/O Spinal surgery; Translations: [Other specified postprocedural states] 05-08-2025 Episodic Comment on above: T12-L2 Residual codes; unclassified (1 source) Chills (without fever); Translations: [Chills] Onset: 5 Episodic Rheumatoid arthritis and related disease (12 sources) Rheumatoid arthritis, unspecified Chronic Skin and subcutaneous tissue infections (20 sources) Cellulitis of right lower limb; Translations: [Cellulitis of right lower extremity] Onset: Episodic Spondylosis; intervertebral disc disorders; other back problems (13 sources) Degeneration of lumbar intervertebral disc; Translations: [Degeneration of intervertebral disc of lumbar region] 05-23-2024 Chronic Spondylosis; intervertebral disc disorders; other back problems (20 sources) Dorsalgia, unspecified; Translations: [Backache, unspecified] Onset: 5 05-15-2023 Episodic Sprains and strains (13 sources) Strain of muscle of lower limb; Translations: [Strain of muscle, fascia and tendon of right hip, initial encounter] 05-23-2024 Episodic Unclassified (20 sources) Office/outpatient visit,est, mod Onset: 8 Resolved: 1 Unclassified (20 sources) S32.000A - Wedge compression fracture of unspecified lumbar vertebra, initial encounter for closed fracture,M54.9 - Dorsalgia, unspecified Unclassified (16 sources) Compression fracture of lumbar vertebra Unclassified (3 sources) M48.062 - Spinal stenosis, lumbar region [...] [Abnormal weight loss] Onset: 04-28-2011 04-28-2011 Episodic Residual codes; unclassified (1 source) Estrogen [...] Facility CASE MANAGEMon 06-03-2025 CASE MANAGEM Normal [facility] CASE MANAGEM Normal [facility] CBC panel Auto (Bld)on 06-03 Erythrocyte distribution width (RBC) [Ratio] 15.0 % Normal 11.5-15.0 [facility] Comment on above: Order Comment: Speci men Type: BLOOD SPECIMENOrdering Facility: [facility] Address: [address] [place] [address] Performed By: #### 5 8410-2 ####[facility] LABORATORYCLIA [id number] [address] [place] Hematocrit (Bld) [Volume fraction] 25.6 % Low 36.0-46.0 [facility] Comment on above: Order Comment: Speci men Type: BLOOD SPECIMENOrdering Facility: [facility] Address: [address] [place] [address] Performed By: #### 5 8410-2 ####[facility] LABORATORYCLIA [id number] [place] [address] [place] Hemoglobin (Bld) [Mass/Vol] 9.3 g/dL Low 11.5-15.5 [facility] Comment on above: Order Comment: Speci men Type: BLOOD SPECIMENOrdering Facility: [facility] Address: [address] [place] [address] Performed By: #### 5 8410-2 ####[facility] LABORATORYCLIA [id number] [place] [address] [place] MCH (RBC) [Entitic mass] 37.3 pg High 26.0-34.0 [facility] Comment on above: Order Comment: Speci men Type: BLOOD SPECIMENOrdering Facility: [facility] Address: [address] [place] [address] Performed By: #### 5 8410-2 ####[facility] LABORATORYCLIA [id number] [place] [address] [place] MCHC (RBC) [Mass/Vol] 36.3 g/dL High 30.5-36.0 [facility] Comment on above: Order Comment: Speci men Type: BLOOD SPECIMENOrdering Facility: [facility] Address: [address] [place] [address] Performed By: #### 5 8410-2 ####[facility] LABORATORYCLIA [id number] [place] [address] [place] MCV (RBC) [Entitic vol] 102.8 fL High 80.0-100.0 [facility] Comment on above: Order Comment: Speci men Type: BLOOD SPECIMENOrdering Facility: [facility] Address: [address] [place] [address] Performed By: #### 5 8410-2 ####[facility] LABORATORYCLIA [id number] [address] [place] Nucleated RBC (Bld) [#/Vol] 10*3/uL Normal <0.01 [facility] Comment on above: Order Comment: Speci men Type: BLOOD SPECIMENOrdering Facility: [facility] Address: [address] [place] [address] Performed By: #### 5 8410-2 ####[facility] LABORATORYCLIA [id number] [address] [place] Platelet mean volume (Bld) [Entitic vol] 8.9 fL Low 9.0-12.7 [facility] Comment on above: Order Comment: Speci men Type: BLOOD SPECIMENOrdering Facility: [facility] Address: [address] [place] [address] Performed By: #### 5 8410-2 ####[facility] LABORATORYCLIA [id number] [place] [address] [place] Platelets (Bld) [#/Vol] 107 10*3/uL Low 150-400 [facility] Comment on above: Order Comment: Speci men Type: BLOOD SPECIMENOrdering Facility: [facility] Address: [facility] [place] [address] Performed By: #### 5 8410-2 ####[facility] LABORATORYCLIA [id number] [place] [address] [place] RBC (Bld) [#/Vol] 2.49 10*6/uL Low 3.90-5.20 [facility] Comment on above: Order Comment: Speci men Type: BLOOD SPECIMENOrdering Facility: [facility] Address: [address] [place] [address] Performed By: #### 5 8410-2 ####[facility] LABORATORYCLIA [id number] [place] [id number] [place] WBC (Bld) [#/Vol] 3.22 10*3/uL Low 3.70-11.00 [facility] Comment on above: Order Comment: Speci men Type: BLOOD SPECIMENOrdering Facility: [facility] Address: [address] [place] [address] Performed By: #### 5 8410-2 ####[facility] LABORATORYCLIA [id number] [place] [id number] [place] CNDSon 06-03-2025 CNDS Normal [facility] CONSULTon 06-03-2025 CONSULT Normal [facility] CONSULT PROGon 06-03-2025 CONSULT PROG Normal [facility] CONSULT PROG [facility] CORTISOL, 30 MIN POST COSYNT ROPIN INJECTIONon 06-03-2025 Cortisol 30 Min post Unsp challenge [Mass/Vol] 16.8 ug/dL [facility] Comment on above: Order Comment: Speci men Type: BLOOD SPECIMENOrdering Facility: [facility] Address: [address] [place] [address] Performed By: #### C OR30 ####[facility] LABCLIA [id number] [address] [place] CORTISOL, 60 MIN POST COSYNT ROPIN INJECTION 3 POINTon 06-03-2025 Cortisol 1 Hr post Unsp challenge [Mass/Vol] 18.4 ug/dL [facility] Comment on above: Order Comment: Speci men Type: BLOOD SPECIMENOrdering Facility: [facility] Address: [address] [place] [address] Performed By: #### C ORS60M ####[facility] LABCLIA [id number] [place] [id number] [facility] [place] INTERPRETATION (ACTHST) Normal [facility] Comment on above: Order Comment: Speci men Type: BLOOD SPECIMENOrdering Facility: [facility] Address: [address] [place] [address] Result Comment: Afte r cortrosyn stimulation, a peak cortisol response greater than 12.6 ug/dL may indicate appropriate cortisol secretion. This result should be interpreted within the clinical context and other test results.Sun et al. Clinical Implications for Biochemical Diagnostic Thresholds of Adrenal Sufficiency Using a Highly Specific Cortisol Immunoassay. 2017 Clin. Biochem. 50:475-480. Performed By: #### C ORS60M ####[facility] LABCLIA [id number] [address] [place] CORTISOL, BASALon 06-03-2025 Cortisol baseline [Mass/Vol] 5.6 ug/dL Normal 4.8-19.5 [facility] Comment on above: Order Comment: Speci men Type: BLOOD SPECIMENOrdering Facility: [facility] Address: [address] [place] [address] Result Comment: Prov ided reference range is from 6-10 AM sample collection time.Cortisol Reference Range: 6-10 AM = 4.8-19.5 ug/dL, 4-8 PM = 2.5-11.9 ug/dL Performed By: #### C ORTBAS ####[facility] LABCLIA [id number] [place] [id number] [facility] [place] Comprehensive metabolic 2000 panelon 06-03-2025 Albumin [Mass/Vol] 3.2 g/dL Low 3.9-4.9 [facility] Comment on above: Order Comment: Speci men Type: BLOOD SPECIMENOrdering Facility: [facility] Address: [address] [place] [address] Performed By: #### 2 4323-8 ####[facility]ATORYCLIA [id number] [place] [address] [place] ALP [Catalytic activity/Vol] 185 U/L High 34-123 [facility] Comment on above: Order Comment: Speci men Type: BLOOD SPECIMENOrdering Facility: [facility] Address: [address] [place] [address] Performed By: #### 2 4323-8 ####[facility] LABORATORYCLIA [id number] [place] [address] [place] ALT [Catalytic activity/Vol] 13 U/L Normal 7-38 [facility] Comment on above: Order Comment: Speci men Type: BLOOD SPECIMENOrdering Facility: [facility] Address: [address] [place] [address] Performed By: #### 2 4323-8 ####[facility] LABORATORYCLIA [id number] [place] [address] [place] Anion gap [Moles/Vol] 10 mmol/L Normal 8-15 [facility] Comment on above: Order Comment: Speci men Type: BLOOD SPECIMENOrdering Facility: [facility] Address: [address] [place] [address] Performed By: #### 2 4323-8 ####[facility] LABORATORYCLIA [id number] [place] [address] [place] AST [Catalytic activity/Vol] 45 U/L High 13-35 [facility] Comment on above: Order Comment: Speci men Type: BLOOD SPECIMENOrdering Facility: [facility] Address: [address] [place] [address] Performed By: #### 2 4323-8 ####[facility] LABORATORYCLIA [id number] [place] [address] [place] Bilirubin [Mass/Vol] 3.1 mg/dL High 0.2-1.3 [facility] Comment on above: Order Comment: Speci men Type: BLOOD SPECIMENOrdering Facility: [facility] Address: [address] [place] [address] Performed By: #### 2 4323-8 ####[facility] LABORATORYCLIA [id number] [place] [address] [place] Calcium [Mass/Vol] 8.7 mg/dL Normal 8.5-10.2 [facility] Comment on above: Order Comment: Speci men Type: BLOOD SPECIMENOrdering Facility: [facility] Address: [address] [place] [address] Performed By: #### 2 4323-8 ####[facility] LABORATORYCLIA [id number] [place] [address] [place] Chloride [Moles/Vol] 95 mmol/L Low 98-107 [facility] Comment on above: Order Comment: Speci men Type: BLOOD SPECIMENOrdering Facility: [facility] Address: [address] [place] [address] Performed By: #### 2 4323-8 ####[facility] LABORATORYCLIA [id number] [place] [address] [place] CO2 [Moles/Vol] 27 mmol/L Normal 22-30 [facility] Comment on above: Order Comment: Speci men Type: BLOOD SPECIMENOrdering Facility: [facility] Address: [address] [place] [address] Performed By: #### 2 4323-8 ####[facility] LABORATORYCLIA [id number] [place] [address] [place] Creatinine [Mass/Vol] 0.39 mg/dL Low 0.58-0.96 [facility] Comment on above: Order Comment: Speci men Type: BLOOD SPECIMENOrdering Facility: [facility] Address: [address] [place] [address] Performed By: #### 2 4323-8 ####[facility] LABORATORYCLIA [id number] [place] [address] [place] eGFRcr SerPlBld CKD-EPI 2020 105 mL/min/1.73m??? Normal >=60 [facility] Comment on above: Order Comment: Speci men Type: BLOOD SPECIMENOrdering Facility: [facility] Address: [address] [place] [address] Result Comment: Kaylyn mated Glomerular Filtration Rate [...] Performed By: #### 2 4323-8 ####[facility] LABORATORYCLIA [id number] [place] [address] [place] Glucose [Mass/Vol] 85 mg/dL Normal 74-99 [facility] Comment on above: Order Comment: Steve lemons Type: BLOOD SPECIMENOrdering Facility: [facility] Address: [address] [place] [address] Result Comment: The [place] [employer] (ADA) provides guidance for cutoff [...] Standards of Medical Care in Diabetes 2016, [place] [employer]. Diabetes Care. 2016.39(Suppl 1). Performed By: #### 2 4323-8 ####[facility]ORATORYCLIA [id number] [place] [address] [place] Potassium [Moles/Vol] 3.1 mmol/L Low 3.7-5.1 [facility] Comment on above: Order Comment: Steve lemons Type: BLOOD SPECIMENOrdering Facility: [facility] Address: [address] [place] [address] Performed By: #### 2 4323-8 ####[facility]ATORYCLIA [id number] [place] [address] [place] Protein [Mass/Vol] 5.3 g/dL Low 6.3-8.0 [facility] Comment on above: Order Comment: Steve lemons Type: BLOOD SPECIMENOrdering Facility: [facility] Address: [address] [place] [address] Performed By: #### 2 4323-8 ####[facility] LABORATORYCLIA [id number] [place] [address] [place] Sodium [Moles/Vol] 132 mmol/L Low 136-144 [facility] Comment on above: Order Comment: Speci men Type: BLOOD SPECIMENOrdering Facility: [facility] Address: [address] [place] [address] Performed By: #### 2 4323-8 ####MCLAIN LABORATORYCLIA [id number] [place] [address] [place] Urea nitrogen [Mass/Vol] 7 mg/dL Normal 7-21 [facility] Comment on above: Order Comment: Speci men Type: BLOOD SPECIMENOrdering Facility: [facility] Address: [address] [place] [address] Performed By: #### 2 4323-8 ####MCLAIN LABORATORYCLIA [id number] [address] [place] ALLIED HEALTHon 06-02-2025 ALLIED HEALTH Normal [facility] CASE MANAGEMon 06-02-[address] [facility] CBC panel Auto (Bld)on 06-02 Erythrocyte distribution width (RBC) [Ratio] 14.9 % Normal 11.5-15.0 [facility] Comment on above: Order Comment: Speci men Type: BLOOD SPECIMENOrdering Facility: [facility] Address: [address] [place] [address] Performed By: #### 5 8410-2 ####MCLAIN LABORATORYCLIA [id number] [place] [address] [place] Hematocrit (Bld) [Volume fraction] 26.9 % Low 36.0-46.0 [facility] Comment on above: Order Comment: Speci men Type: BLOOD SPECIMENOrdering Facility: [facility] Address: [address] [place] [address] Performed By: #### 5 8410-2 ####MCLAIN LABORATORYCLIA [id number] [address] [place] Hemoglobin (Bld) [Mass/Vol] 9.6 g/dL Low 11.5-15.5 [facility] Comment on above: Order Comment: Speci men Type: BLOOD SPECIMENOrdering Facility: [facility] Address: [address] [place] [address] Performed By: #### 5 8410-2 ####MCLAIN LABORATORYCLIA [id number] [address] MCH (RBC) [Entitic mass] 37.6 pg High 26.0-34.0 [facility] Comment on above: Order Comment: Speci men Type: BLOOD SPECIMENOrdering Facility: [facility] Address: [address] [place] [address] Performed By: #### 5 8410-2 ####[facility] LABORATORYCLIA [id number] [address] MCHC (RBC) [Mass/Vol] 35.7 g/dL Normal 30.5-36.0 [facility] Comment on above: Order Comment: Speci men Type: BLOOD SPECIMENOrdering Facility: [facility] Address: [address] [place] [address] Performed By: #### 5 8410-2 ####[facility]BANY LABORATORYCLIA [id number] [address] MCV (RBC) [Entitic vol] 105.5 fL High 80.0-100.0 [facility] Comment on above: Order Comment: Speci men Type: BLOOD SPECIMENOrdering Facility: [facility] Address: [address] [place] [address] Performed By: #### 5 8410-2 ####ALBANY LABORATORYCLIA [id number] [address] Nucleated RBC (Bld) [#/Vol] 10*3/uL Normal <0.01 [facility] Comment on above: Order Comment: Speci men Type: BLOOD SPECIMENOrdering Facility: [facility] Address: [address] [place] [address] Performed By: #### 5 8410-2 ####ALBANY LABORATORYCLIA [id number] [address] [place] Platelet mean volume (Bld) [Entitic vol] 9.1 fL Normal 9.0-12.7 [facility] Comment on above: Order Comment: Speci men Type: BLOOD SPECIMENOrdering Facility: [facility] Address: [address] [place] [address] Performed By: #### 5 8410-2 ####MCLAIN LABORATORYCLIA [id number] [address] [place] Platelets (Bld) [#/Vol] 98 10*3/uL Low 150-400 [facility] Comment on above: Order Comment: Speci men Type: BLOOD SPECIMENOrdering Facility: [facility] Address: [address] [place] [address] Result Comment: No c lot detected. Performed By: #### 5 8410-2 ####MCLAIN LABORATORYCLIA [id number] [address] [place] RBC (Bld) [#/Vol] 2.55 10*6/uL Low 3.90-5.20 [facility] Comment on above: Order Comment: Speci men Type: BLOOD SPECIMENOrdering Facility: [facility] Address: [address] [place] [address] Performed By: #### 5 8410-2 ####MCLAIN LABORATORYCLIA [id number] [address] WBC (Bld) [#/Vol] 3.25 10*3/uL Low 3.70-11.00 [facility] Comment on above: Order Comment: Speci men Type: BLOOD SPECIMENOrdering Facility: [facility] Address: [address] [place] [address] Performed By: #### 5 8410-2 ####MCLAIN LABORATORYCLIA [id number] [address] [place] CONSULT PROGon 06-02-2025 CONSULT PROG Normal [facility] CONSULT PRO Normal [facility] CONSULT PROG Normal [facility] CONSULT PROG Normal [facility] CONSULT PRO Normal [facility] Comprehensive metabolic 2000 panelon 06-02-2025 Albumin [Mass/Vol] 3.2 g/dL Low 3.9-4.9 [facility] Comment on above: Order Comment: Speci men Type: BLOOD SPECIMENOrdering Facility: [facility] Address: [address] [place] [address] Performed By: #### 2 4323-8, 45809-4, 2776-09 ####MCLAIN LABORATORYCLIA [id number] [place] [address] [place] ALP [Catalytic activity/Vol] 182 U/L High 34-123 [facility] Comment on above: Order Comment: Speci men Type: BLOOD SPECIMENOrdering Facility: [facility] Address: [address] [place] [address] Performed By: #### 2 4323-8, , 2776-09 ####MCLAIN LABORATORYCLIA [id number] [address] [place] ALT [Catalytic activity/Vol] 14 U/L Normal 7-38 [facility] Comment on above: Order Comment: Speci men Type: BLOOD SPECIMENOrdering Facility: [facility] Address: [address] [place] [address] Performed By: #### 2 4323-8, , 2776-09 ####MCLAIN LABORATORYCLIA [id number] [place] [address] [place] Anion gap [Moles/Vol] 8 mmol/L Normal 8-15 [facility] Comment on above: Order Comment: Speci men Type: BLOOD SPECIMENOrdering Facility: [facility] Address: [address] [place] [id number] Performed By: #### 2 4323-8, , 2776-09 ####MCLAIN LABORATORYCLIA [id number] [address] [place] AST [Catalytic activity/Vol] 51 U/L High 13-35 [facility] Comment on above: Order Comment: Speci men Type: BLOOD SPECIMENOrdering Facility: [facility] Address: [address] [place] [address] Performed By: #### 2 4323-8, , 2776- ####MCLAIN LABORATORYCLIA [id number] [place] [address] [place] Bilirubin [Mass/Vol] 3.7 mg/dL High 0.2-1.3 [facility] Comment on above: Order Comment: Speci men Type: BLOOD SPECIMENOrdering Facility: [facility] Address: [address] [place] [address] Performed By: #### 2 4323-8, , 2776-09 ####MCLAIN LABORATORYCLIA [id number] [place] [address] [place] Calcium [Mass/Vol] 8.3 mg/dL Low 8.5-10.2 [facility] Comment on above: Order Comment: Speci men Type: BLOOD SPECIMENOrdering Facility: [facility] Address: [address] [place] [address] Performed By: #### 2 4323-8, , 2776-09 ####MCLAIN LABORATORYCLIA [id number] [place] [address] [place] Chloride [Moles/Vol] 98 mmol/L Normal 98-107 [facility] Comment on above: Order Comment: Speci men Type: BLOOD SPECIMENOrdering Facility: [facility] Address: [address] [place] [address] Performed By: #### 2 4323-8, , 2776-09 ####MCLAIN LABORATORYCLIA [id number] [place] [address] [place] CO2 [Moles/Vol] 27 mmol/L Normal 22-30 [facility] Comment on above: Order Comment: Speci men Type: BLOOD SPECIMENOrdering Facility: [facility] Address: [address] [place] [id number] Performed By: #### 2 4323-8, , 2776-09 ####MCLAIN LABORATORYCLIA [id number] [place] [address] [place] Creatinine [Mass/Vol] 0.45 mg/dL Low 0.58-0.96 [facility] Comment on above: Order Comment: Speci men Type: BLOOD SPECIMENOrdering Facility: [facility] Address: [address] [place] [address] Performed By: #### 2 4323-8, 24407-7, 2776- ####MCLAIN LABORATORYCLIA [id number] [place] [address] [place] eGFRcr SerPlBld CKD-EPI 2020 102 mL/min/1.73m??? Normal >=60 [facility] Comment on above: Order Comment: Steve lemons Type: BLOOD SPECIMENOrdering Facility: [facility] Address: [address] [place] [address] Result Comment: Kaylyn mated Glomerular Filtration Rate [...] actual GFR. Performed By: #### 2 4323-8, 67136-6, 2776-09 ####MCLAIN LABORATORYCLIA [id number] [place] [address] [place] Glucose [Mass/Vol] 91 mg/dL Normal 74-99 [facility] Comment on above: Order Comment: Steve lemons Type: BLOOD SPECIMENOrdering Facility: [facility] Address: [address] [place] [address] Result Comment: The [place] [employer] (ADA) provides guidance for cutoff [...] Standards of Medical Care in Diabetes 2016, [place] [employer]. Diabetes Care. 2016.39(Suppl 1). Performed By: #### 2 4323-8, 03144-2, 277- ####MCLAIN LABORATORYCLIA [id number] [place] [address] [place] Potassium [Moles/Vol] 3.5 mmol/L Low 3.7-5.1 [facility] Comment on above: Order Comment: Speci men Type: BLOOD SPECIMENOrdering Facility: [facility] Address: [address] [place] [address] Performed By: #### 2 4323-8, , 2776-09 ####MCLAIN LABORATORYCLIA [id number] [place] [address] [place] Protein [Mass/Vol] 5.2 g/dL Low 6.3-8.0 [facility] Comment on above: Order Comment: Speci men Type: BLOOD SPECIMENOrdering Facility: [facility] Address: [address] [place] [address] Performed By: #### 2 4323-8, , 2776-09 ####MCLAIN LABORATORYCLIA [id number] [address] STATES OF [facility] Sodium [Moles/Vol] 133 mmol/L Low 136-144 [facility] Comment on above: Order Comment: Speci men Type: BLOOD SPECIMENOrdering Facility: [facility] Address: [address] [place] [address] Performed By: #### 2 4323-8, , 2776-09 ####MCLAIN LABORATORYCLIA [id number] [address] [place] Urea nitrogen [Mass/Vol] 5 mg/dL Low 7-21 [facility] Comment on above: Order Comment: Speci men Type: BLOOD SPECIMENOrdering Facility: [facility] Address: [address] [place] [address] Performed By: #### 2 4323-8, , 2776-09 ####MCLAIN LABORATORYCLIA [id number] [place] [address] [place] ECG COMPLETEon 06-02-2025 ECG COMPLETE Normal [facility] MRI 3D POST PROCESSINGon MRI 3D POST PROCESSING Normal [facility] MRI PANC/ALBERT WO IVCONon -5 MRI PANC/ALBERT WO IVCON Normal [facility] Magnesium SerPl-mCncon 06-02 Magnesium [Mass/Vol] 1.4 mg/dL Low 1.7-2.3 [facility] Comment on above: Order Comment: Speci men Type: BLOOD SPECIMENOrdering Facility: [facility] Address: [address] [place] [address] Performed By: #### 2 4323-8, 08132-8, 277-1 ####[facility] LABORATORYCLIA [id number] [place] [address] [place] NUTRITIONon 06-02-2025 NUTRITION Normal [facility] Phosphate SerPl-ncon 06-02 Phosphate [Mass/Vol] 1.3 mg/dL Low 2.7-4.8 [facility] Comment on above: Order Comment: Speci men Type: BLOOD SPECIMENOrdering Facility: [facility] Address: [address] [place] [address] Performed By: #### 2 4323-8, , 2777- ####[facility] LABORATORYCLIA [id number] [place] [address] [place] CBC panel Auto (Bld)on 06-01 Erythrocyte distribution width (RBC) [Ratio] 15.1 % High 11.5-15.0 [facility] Comment on above: Order Comment: Speci men Type: BLOOD SPECIMENOrdering Facility: [facility] Address: [address] [place] [address] Performed By: #### 5 8410-2 ####[facility] LABORATORYCLIA [id number] [place] [address] [place] Hematocrit (Bld) [Volume fraction] 25.8 % Low 36.0-46.0 [facility] Comment on above: Order Comment: Speci men Type: BLOOD SPECIMENOrdering Facility: [facility] Address: [address] [place] [address] Performed By: #### 5 8410-2 ####[facility] LABORATORYCLIA [id number] [address] [place] Hemoglobin (Bld) [Mass/Vol] 9.4 g/dL Low 11.5-15.5 [facility] Comment on above: Order Comment: Speci men Type: BLOOD SPECIMENOrdering Facility: [facility] Address: [address] [place] [address] Performed By: #### 5 8410-2 ####MCLAIN LABORATORYCLIA [id number] [place] [address] [place] MCH (RBC) [Entitic mass] 38.2 pg High 26.0-34.0 [facility] Comment on above: Order Comment: Speci men Type: BLOOD SPECIMENOrdering Facility: [facility] Address: [address] [place] [address] Performed By: #### 5 8410-2 ####MCLAIN LABORATORYCLIA [id number] [place] [address] [place] MCHC (RBC) [Mass/Vol] 36.4 g/dL High 30.5-36.0 [facility] Comment on above: Order Comment: Speci men Type: BLOOD SPECIMENOrdering Facility: [facility] Address: [address] [place] [address] Performed By: #### 5 8410-2 ####MCLAIN LABORATORYCLIA [id number] [address] [place] MCV (RBC) [Entitic vol] 104.9 fL High 80.0-100.0 [facility] Comment on above: Order Comment: Speci men Type: BLOOD SPECIMENOrdering Facility: [facility] Address: [address] [place] [address] Performed By: #### 5 8410-2 ####MCLAIN LABORATORYCLIA [id number] [address] [place] Nucleated RBC (Bld) [#/Vol] 10*3/uL Normal <0.01 [facility] Comment on above: Order Comment: Speci men Type: BLOOD SPECIMENOrdering Facility: [facility] Address: [address] [place] [address] Performed By: #### 5 8410-2 ####MCLAIN LABORATORYCLIA [id number] [place] [address] [place] Platelet mean volume (Bld) [Entitic vol] 8.8 fL Low 9.0-12.7 [facility] Comment on above: Order Comment: Speci men Type: BLOOD SPECIMENOrdering Facility: [facility] Address: [address] [place] [address] Performed By: #### 5 8410-2 ####MCLAIN LABORATORYCLIA [id number] [place] [address] [place] Platelets (Bld) [#/Vol] 105 10*3/uL Low 150-400 [facility] Comment on above: Order Comment: Speci men Type: BLOOD SPECIMENOrdering Facility: [facility] Address: [address] [place] [address] Performed By: #### 5 8410-2 ####[facility] LABORATORYCLIA [id number] [place] [address] [place] RBC (Bld) [#/Vol] 2.46 10*6/uL Low 3.90-5.20 [facility] Comment on above: Order Comment: Speci men Type: BLOOD SPECIMENOrdering Facility: [facility] Address: [address] [place] [address] Performed By: #### 5 8410-2 ####MCLAIN LABORATORYCLIA [id number] [place] [address] [place] WBC (Bld) [#/Vol] 3.89 10*3/uL Normal 3.70-11.00 [facility] Comment on above: Order Comment: Speci men Type: BLOOD SPECIMENOrdering Facility: [facility] Address: [address] [place] [address] Performed By: #### 5 8410-2 ####[facility] LABORATORYCLIA [id number] [place] [id number] [facility] [place] CONSULT PROGon 06-01-2025 CONSULT PROG Normal [facility] CONSULT PROG Normal [facility] Comprehensive metabolic 2000 panelon 06-01-2025 Albumin [Mass/Vol] 3.7 g/dL Low 3.9-4.9 [facility] Comment on above: Order Comment: Speci men Type: BLOOD SPECIMENOrdering Facility: [facility] Address: [address] [place] [address] Performed By: #### 2 4323-8 ####MCLAIN LABORATORYCLIA [id number] [place] [address] [place] ALP [Catalytic activity/Vol] 183 U/L High 34-123 [facility] Comment on above: Order Comment: Speci men Type: BLOOD SPECIMENOrdering Facility: [facility] Address: [address] [place] [address] Performed By: #### 2 4323-8 ####MCLAIN LABORATORYCLIA [id number] [place] [address] [place] ALT [Catalytic activity/Vol] 13 U/L Normal 7-38 [facility] Comment on above: Order Comment: Speci men Type: BLOOD SPECIMENOrdering Facility: [facility] Address: [address] [place] [address] Performed By: #### 2 4323-8 ####MCLAIN LABORATORYCLIA [id number] [place] [address] [place] Anion gap [Moles/Vol] 11 mmol/L Normal 8-15 [facility] Comment on above: Order Comment: Speci men Type: BLOOD SPECIMENOrdering Facility: [facility] Address: [address] [place] [address] Performed By: #### 2 4323-8 ####MCLAIN LABORATORYCLIA [id number] [address] [place] AST [Catalytic activity/Vol] 46 U/L High 13-35 [facility] Comment on above: Order Comment: Speci men Type: BLOOD SPECIMENOrdering Facility: [facility] Address: [address] [place] [address] Performed By: #### 2 4323-8 ####MCLAIN LABORATORYCLIA [id number] [place] [address] [place] Bilirubin [Mass/Vol] 4.3 mg/dL High 0.2-1.3 [facility] Comment on above: Order Comment: Speci men Type: BLOOD SPECIMENOrdering Facility: [facility] Address: [address] [place] [address] Performed By: #### 2 4323-8 ####MCLAIN LABORATORYCLIA [id number] [place] [address] [place] Calcium [Mass/Vol] 8.2 mg/dL Low 8.5-10.2 [facility] Comment on above: Order Comment: Speci men Type: BLOOD SPECIMENOrdering Facility: [facility] Address: [address] [place] [address] Performed By: #### 2 4323-8 ####MCLAIN LABORATORYCLIA [id number] [place] [address] [place] Chloride [Moles/Vol] 94 mmol/L Low 98-107 [facility] Comment on above: Order Comment: Speci men Type: BLOOD SPECIMENOrdering Facility: [facility] Address: [address] [place] [address] Performed By: #### 2 4323-8 ####MCLAIN LABORATORYCLIA [id number] [place] [address] [place] CO2 [Moles/Vol] 25 mmol/L Normal 22-30 [facility] Comment on above: Order Comment: Speci men Type: BLOOD SPECIMENOrdering Facility: [facility] Address: [address] [place] [address] Performed By: #### 2 4323-8 ####MCLAIN LABORATORYCLIA [id number] [place] [address] [place] Creatinine [Mass/Vol] 0.49 mg/dL Low 0.58-0.96 [facility] Comment on above: Order Comment: Speci men Type: BLOOD SPECIMENOrdering Facility: [facility] Address: [address] [place] [address] Performed By: #### 2 4323-8 ####MCLAIN LABORATORYCLIA [id number] [address] [place] eGFRcr SerPlBld CKD-EPI 2020 100 mL/min/1.73m??? Normal >=60 [facility] Comment on above: Order Comment: Speci men Type: BLOOD SPECIMENOrdering Facility: [facility] Address: [address] [place] [address] Result Comment: Kaylyn mated Glomerular Filtration Rate [...] actual GFR. Performed By: #### 2 4323-8 ####[facility] LABORATORYCLIA [id number] [place] [id number] [place] Glucose [Mass/Vol] 89 mg/dL Normal 74-99 [facility] Comment on above: Order Comment: Steve lemons Type: BLOOD SPECIMENOrdering Facility: [facility] Address: [address] [place] [address] Result Comment: The [place] [employer] (ADA) provides guidance for cutoff [...] Standards of Medical Care in Diabetes 2016, [place] [employer]. Diabetes Care. 2016.39(Suppl 1). Performed By: #### 2 4323-8 ####[facility] LABORATORYCLIA [id number] [place] [id number] [place] Potassium [Moles/Vol] 3.9 mmol/L Normal 3.7-5.1 [facility] Comment on above: Order Comment: Steve men Type: BLOOD SPECIMENOrdering Facility: [facility] Address: [address] [place] [id number] Performed By: #### 2 4323-8 ####[facility]ANY LABORATORYCLIA [id number] [place] [address] [place] Protein [Mass/Vol] 5.7 g/dL Low 6.3-8.0 [facility] Comment on above: Order Comment: Speci men Type: BLOOD SPECIMENOrdering Facility: [facility] Address: [address] [place] [address] Performed By: #### 2 4323-8 ####MCLAIN LABORATORYCLIA [id number] [address] Sodium [Moles/Vol] 130 mmol/L Low 136-144 [facility] Comment on above: Order Comment: Speci men Type: BLOOD SPECIMENOrdering Facility: [facility] Address: [address] [place] [address] Performed By: #### 2 4323-8 ####MCLAIN LABORATORYCLIA [id number] [address] Urea nitrogen [Mass/Vol] 4 mg/dL Low 7-21 [facility] Comment on above: Order Comment: Speci men Type: BLOOD SPECIMENOrdering Facility: [facility] Address: [address] [place] [address] Performed By: #### 2 4323-8 ####MCLAIN LABORATORYCLIA [id number] [address] CBC panel Auto (Bld)on 05-31 Erythrocyte distribution width (RBC) [Ratio] 15.3 % High 11.5-15.0 [facility] Comment on above: Order Comment: Speci men Type: BLOOD SPECIMENOrdering Facility: [facility] Address: [address] [place] [address] Performed By: #### 5 8410-2 ####MCLAIN LABORATORYCLIA [id number] [address] Hematocrit (Bld) [Volume fraction] 24.2 % Low 36.0-46.0 [facility] Comment on above: Order Comment: Speci men Type: BLOOD SPECIMENOrdering Facility: [facility] Address: [address] [place] [address] Performed By: #### 5 8410-2 ####MCLAIN LABORATORYCLIA [id number] [address] Hemoglobin (Bld) [Mass/Vol] 8.6 g/dL Low 11.5-15.5 [facility] Comment on above: Order Comment: Speci men Type: BLOOD SPECIMENOrdering Facility: [facility] Address: [address] [place] [address] Performed By: #### 5 8410-2 ####MCLAIN LABORATORYCLIA [id number] [address] MCH (RBC) [Entitic mass] 37.7 pg High 26.0-34.0 [facility] Comment on above: Order Comment: Speci men Type: BLOOD SPECIMENOrdering Facility: [facility] Address: [address] [place] [address] Performed By: #### 5 8410-2 ####MCLA[facility] LABORATORYCLIA [id number] [address] MCHC (RBC) [Mass/Vol] 35.5 g/dL Normal 30.5-36.0 [facility] Comment on above: Order Comment: Speci men Type: BLOOD SPECIMENOrdering Facility: [facility] Address: [address] [place] [address] Performed By: #### 5 8410-2 ####MCLAIN LABORATORYCLIA [id number] [address] MCV (RBC) [Entitic vol] 106.1 fL High 80.0-100.0 [facility] Comment on above: Order Comment: Speci men Type: BLOOD SPECIMENOrdering Facility: [facility] Address: [address] [place] [address] Performed By: #### 5 8410-2 ####MCLAIN LABORATORYCLIA [id number] [address] Nucleated RBC (Bld) [#/Vol] 10*3/uL Normal <0.01 [facility] Comment on above: Order Comment: Speci men Type: BLOOD SPECIMENOrdering Facility: [facility] Address: [address] [place] [address] Performed By: #### 5 8410-2 ####MCLAIN LABORATORYCLIA [id number] [address] [place] Platelet mean volume (Bld) [Entitic vol] 9.0 fL Normal 9.0-12.7 [facility] Comment on above: Order Comment: Speci men Type: BLOOD SPECIMENOrdering Facility: [facility] Address: [address] [place] [address] Performed By: #### 5 8410-2 ####[facility] LABORATORYCLIA [id number] [place] [address] [place] Platelets (Bld) [#/Vol] 94 10*3/uL Low 150-400 [facility] Comment on above: Order Comment: Speci men Type: BLOOD SPECIMENOrdering Facility: [facility] Address: [address] [place] [address] Performed By: #### 5 8410-2 ####[facility] LABORATORYCLIA [id number] [place] [address] [place] RBC (Bld) [#/Vol] 2.28 10*6/uL Low 3.90-5.20 [facility] Comment on above: Order Comment: Speci men Type: BLOOD SPECIMENOrdering Facility: [facility] Address: [address] [place] [address] Performed By: #### 5 8410-2 ####[facility] LABORATORYCLIA [id number] [address] [place] WBC (Bld) [#/Vol] 3.76 10*3/uL Normal 3.70-11.00 [facility] Comment on above: Order Comment: Speci men Type: BLOOD SPECIMENOrdering Facility: [facility] Address: [address] [place] [address] Performed By: #### 5 8410-2 ####[facility] LABORATORYCLIA [id number] [address] [place] CONSULT PROGon 05-31-2025 CONSULT PROG Normal [facility] CONSULT PROG Normal [facility] CONSULT PROG Normal [facility] Comprehensive metabolic 2000 panelon 05-31-2025 Albumin [Mass/Vol] 3.2 g/dL Low 3.9-4.9 [facility] Comment on above: Order Comment: Speci men Type: BLOOD SPECIMENOrdering Facility: [facility] Address: [address] [address] Performed By: #### 2 4322-8, ####M[facility]IN LABORATORYCLIA [id number] [place] [address] [place] ALP [Catalytic activity/Vol] 173 U/L High 34-123 [facility] Comment on above: Order Comment: Speci men Type: BLOOD SPECIMENOrdering Facility: [facility] Address: [address] [place] [address] Performed By: #### 2 8, ####[facility] LABORATORYCLIA [id number] [address] [place] ALT [Catalytic activity/Vol] 12 U/L Normal 7-38 [facility] Comment on above: Order Comment: Speci men Type: BLOOD SPECIMENOrdering Facility: [facility] Address: [address] [place] [address] Performed By: #### 2 4323-04, ####MCLAIN LABORATORYCLIA [id number] [place] [address] [place] Anion gap [Moles/Vol] 10 mmol/L Normal 8-15 [facility] Comment on above: Order Comment: Speci men Type: BLOOD SPECIMENOrdering Facility: [facility] Address: [address] [place] [address] Performed By: #### 2 8, ####M[facility] LABORATORYCLIA [id number] [place] [id number] [place] AST [Catalytic activity/Vol] 45 U/L High 13-35 [facility] Comment on above: Order Comment: Speci men Type: BLOOD SPECIMENOrdering Facility: [facility] Address: [address] [place] [address] Performed By: #### 2 4328, ####M[facility]IN LABORATORYCLIA [id number] [place] [id number] [place] Bilirubin [Mass/Vol] 4.9 mg/dL High 0.2-1.3 [facility] Comment on above: Order Comment: Speci men Type: BLOOD SPECIMENOrdering Facility: [facility] Address: [address] [place] [id number] Performed By: #### 2 4323-8, ####M[facility]IN LABORATORYCLIA [id number] [place] [address] [place] Calcium [Mass/Vol] 7.8 mg/dL Low 8.5-10.2 [facility] Comment on above: Order Comment: Speci men Type: BLOOD SPECIMENOrdering Facility: [facility] Address: [address] [place] [address] Performed By: #### 2 4328, ####MCLAIN LABORATORYCLIA [id number] [place] [address] [place] Chloride [Moles/Vol] 93 mmol/L Low 98-107 [facility] Comment on above: Order Comment: Speci men Type: BLOOD SPECIMENOrdering Facility: [facility] Address: [address] [place], [place] [address] Performed By: #### 2 43238, ####MCLAIN LABORATORYCLIA [id number] [place] [address] [place] CO2 [Moles/Vol] 25 mmol/L Normal 22-30 [facility] Comment on above: Order Comment: Speci men Type: BLOOD SPECIMENOrdering Facility: [facility] Address: [address] [place] [id number] Performed By: #### 2 4323-8, ####M[facility]IN LABORATORYCLIA [id number] [place] [address] [place] Creatinine [Mass/Vol] 0.44 mg/dL Low 0.58-0.96 [facility] Comment on above: Order Comment: Speci men Type: BLOOD SPECIMENOrdering Facility: [facility] Address: [address] [place] [id number] Performed By: #### 2 4323-8, ####MCLAIN LABORATORYCLIA [id number] [place] [address] [place] eGFRcr SerPlBld CKD-EPI 2020 102 mL/min/1.73m??? Normal >=60 [facility] Comment on above: Order Comment: Steve lemons Type: BLOOD SPECIMENOrdering Facility: [facility] Address: [address] [place] [address] Result Comment: Kaylyn mated Glomerular Filtration Rate [...] actual GFR. Performed By: #### 2 4323-8, ####M[facility]IN LABORATORYCLIA [id number] [place] [address] [place] Glucose [Mass/Vol] 86 mg/dL Normal 74-99 [facility] Comment on above: Order Comment: Steve lemons Type: BLOOD SPECIMENOrdering Facility: [facility] Address: [address] [place] [address] Result Comment: The [place] [employer] (ADA) provides guidance for cutoff [...] Standards of Medical Care in Diabetes 2016, [place] [employer]. Diabetes Care. 2016.39(Suppl 1). Performed By: #### 2 4323-8, ####[facility] LABORATORYCLIA [id number] [place] [id number] [place] Potassium [Moles/Vol] 3.5 mmol/L Low 3.7-5.1 [facility] Comment on above: Order Comment: Speci men Type: BLOOD SPECIMENOrdering Facility: [facility] Address: [address] [place] [id number] Performed By: #### 2 3-8, ####M[facility]IN LABORATORYCLIA [id number] [place] [address] [place] Protein [Mass/Vol] 5.3 g/dL Low 6.3-8.0 [facility] Comment on above: Order Comment: Speci men Type: BLOOD SPECIMENOrdering Facility: [facility] Address: [address] [place] [address] Performed By: #### 2 4322-8, ####MCLAIN LABORATORYCLIA [id number] [place] [address] [place] Sodium [Moles/Vol] 128 mmol/L Low 136-144 [facility] Comment on above: Order Comment: Speci men Type: BLOOD SPECIMENOrdering Facility: [facility] Address: [address] [place] [address] Performed By: #### 2 4322-8, ####MCLAIN LABORATORYCLIA [id number] [place] [address] [place] Urea nitrogen [Mass/Vol] 5 mg/dL Low 7-21 [facility] Comment on above: Order Comment: Speci men Type: BLOOD SPECIMENOrdering Facility: [facility] Address: [address] [place] [address] Performed By: #### 2 4323-8, ####M[facility]IN LABORATORYCLIA [id number] [place] [id number] [place] Magnesium SerPl-mCncon 05-31 Magnesium [Mass/Vol] 1.7 mg/dL Normal 1.7-2.3 [facility] Comment on above: Order Comment: Speci men Type: BLOOD SPECIMENOrdering Facility: [facility] Address: [address] [place] [address] Performed By: #### 2 4323-8, ####MCLAIN LABORATORYCLIA [id number] [place] [id number] [place] ANES POSTPROC EVALon 025 ANES POSTPROC EVAL Normal [facility] ANES PRE-OPon 05-30-2025 ANES PRE-OP Normal [facility] Bacteria Spec Anaerobe Culto n 05-30-2025 Bacteria identified Anaer cx Nom (Unsp spec) Negative Normal [facility] Comment on above: Performed By: #### 6 35-3, 6462-6 ####[facility] LABCLIA [id number] [facility] [place] [address] [place] Bacteria identified Anaer cx Nom (Unsp spec) Negative Normal [facility] Comment on above: Performed By: #### 6 35-3, 6462-6 ####[facility] LABCLIA [id number] [address] [place] [address] [place] Bacteria Wnd Culton 05-30-20 25 Bacteria identified Cx Nom (Wound) Abnormal [facility] Comment on above: Performed By: #### 6 35-3, 6462-6 ####[facility] LABCLIA [id number] [address] [place] [address] [place] Bacteria identified Cx Nom (Wound) CULTURE, WOUND: No growth GRAM STAIN: No organisms seen No Polymorphonuclear Leukocytes Normal [facility] Comment on above: Performed By: #### 6 35-3, 6462-6 ####[facility] LABCLIA [id number] [address] [place] [address] [place] CBC panel Auto (Bld)on 05-30 Erythrocyte distribution width (RBC) [Ratio] 15.2 % High 11.5-15.0 [facility] Comment on above: Order Comment: Speci men Type: BLOOD SPECIMENOrdering Facility: [facility] Address: [address] [place] [id number] Performed By: #### 5 8410-2 ####[facility] LABORATORYCLIA [id number] [place] [address] [place] Hematocrit (Bld) [Volume fraction] 24.5 % Low 36.0-46.0 [facility] Comment on above: Order Comment: Speci men Type: BLOOD SPECIMENOrdering Facility: [facility] Address: [address] [place] [address] Performed By: #### 5 8410-2 ####[facility]IN LABORATORYCLIA [id number] [address] Hemoglobin (Bld) [Mass/Vol] 9.0 g/dL Low 11.5-15.5 [facility] Comment on above: Order Comment: Speci men Type: BLOOD SPECIMENOrdering Facility: [facility] Address: [address] [place] [address] Performed By: #### 5 8410-2 ####[facility] LABORATORYCLIA [id number] [address] MCH (RBC) [Entitic mass] 38.1 pg High 26.0-34.0 [facility] Comment on above: Order Comment: Speci men Type: BLOOD SPECIMENOrdering Facility: [facility] Address: [address] [place] [address] Performed By: #### 5 8410-2 ####[facility] LABORATORYCLIA [id number] [address] MCHC (RBC) [Mass/Vol] 36.7 g/dL High 30.5-36.0 [facility] Comment on above: Order Comment: Speci men Type: BLOOD SPECIMENOrdering Facility: [facility] Address: [address] [place] [address] Performed By: #### 5 8410-2 ####[facility] LABORATORYCLIA [id number] [address] MCV (RBC) [Entitic vol] 103.8 fL High 80.0-100.0 [facility] Comment on above: Order Comment: Speci men Type: BLOOD SPECIMENOrdering Facility: [facility] Address: [address] [place] [address] Performed By: #### 5 8410-2 ####M[facility] LABORATORYCLIA [id number] [place] [address] [place] Nucleated RBC (Bld) [#/Vol] 10*3/uL Normal <0.01 [facility] Comment on above: Order Comment: Speci men Type: BLOOD SPECIMENOrdering Facility: [facility] Address: [address] [place] [address] Performed By: #### 5 8410-2 ####M[facility]IN LABORATORYCLIA [id number] [place] [address] [place] Platelet mean volume (Bld) [Entitic vol] 9.2 fL Normal 9.0-12.7 [facility] Comment on above: Order Comment: Speci men Type: BLOOD SPECIMENOrdering Facility: [facility] Address: [address] [place] [address] Performed By: #### 5 8410-2 ####M[facility] LABORATORYCLIA [id number] [place] [address] [place] Platelets (Bld) [#/Vol] 93 10*3/uL Low 150-400 [facility] Comment on above: Order Comment: Speci men Type: BLOOD SPECIMENOrdering Facility: [facility] Address: [address] [place] [address] Performed By: #### 5 8410-2 ####M[facility] LABORATORYCLIA [id number] [place] [address] [place] RBC (Bld) [#/Vol] 2.36 10*6/uL Low 3.90-5.20 [facility] Comment on above: Order Comment: Speci men Type: BLOOD SPECIMENOrdering Facility: [facility] Address: [address] [place] [address] Performed By: #### 5 8410-2 ####M[facility] LABORATORYCLIA [id number] [place] [id number] [place] WBC (Bld) [#/Vol] 4.82 10*3/uL Normal 3.70-11.00 [facility] Comment on above: Order Comment: Speci men Type: BLOOD SPECIMENOrdering Facility: [facility] Address: [address] [place] [address] Performed By: #### 5 8410-2 ####M[facility] LABORATORYCLIA [id number] [place] [address] [place] CONSULTon 05-30-2025 CONSULT Normal [facility] CONSULT Normal [facility] CONSULT PROGon 05-30-2025 CONSULT PROG Normal [facility] CONSULT PROG Normal [facility] CONSULT PROG Normal [facility] Comprehensive metabolic 2000 panelon 05-30-2025 Albumin [Mass/Vol] 2.8 g/dL Low 3.9-4.9 [facility] Comment on above: Order Comment: Speci men Type: BLOOD SPECIMENOrdering Facility: [facility] Address: [address] [place] [address] Performed By: #### 2 4323-8, 2951-2, 28528-0, 2777-1 ####[facility] LABORATORYCLIA [id number] [place] [address] [place] ALP [Catalytic activity/Vol] 190 U/L High 34-123 [facility] Comment on above: Order Comment: Speci men Type: BLOOD SPECIMENOrdering Facility: [facility] Address: [address] [place] [address] Performed By: #### 2 4323-8, 2951-2, 97781-9, 2777-1 ####[facility] LABORATORYCLIA [id number] [place] [address] [place] ALT [Catalytic activity/Vol] 13 U/L Normal 7-38 [facility] Comment on above: Order Comment: Speci men Type: BLOOD SPECIMENOrdering Facility: [facility] Address: [address] [place] [address] Performed By: #### 2 4323-8, 2951-2, 42527-5, 2777-1 ####[facility] LABORATORYCLIA [id number] [place] [address] [place] Anion gap [Moles/Vol] 10 mmol/L Normal 8-15 [facility] Comment on above: Order Comment: Speci men Type: BLOOD SPECIMENOrdering Facility: [facility] Address: [address] [place] [address] Performed By: #### 2 4323-8, 2951-2, 87391-7, 2777-1 ####[facility] LABORATORYCLIA [id number] [place] [address] [place] AST [Catalytic activity/Vol] 41 U/L High 13-35 [facility] Comment on above: Order Comment: Speci men Type: BLOOD SPECIMENOrdering Facility: [facility] Address: [address] [place] [address] Performed By: #### 2 4323-8, 2951-2, 80369-7, 2777-1 ####[facility] LABORATORYCLIA [id number] [place] [address] [place] Bilirubin [Mass/Vol] 4.4 mg/dL High 0.2-1.3 [facility] Comment on above: Order Comment: Speci men Type: BLOOD SPECIMENOrdering Facility: [facility] Address: [address] [place] [address] Performed By: #### 2 4323-8, 2951-2, 17979-1, 2777-1 ####[facility] LABORATORYCLIA [id number] [place] [address] [place] Calcium [Mass/Vol] 7.9 mg/dL Low 8.5-10.2 [facility] Comment on above: Order Comment: Speci men Type: BLOOD SPECIMENOrdering Facility: [facility] Address: [address] [place] [address] Performed By: #### 2 4323-8, 2951-2, 61759-1, 2777-1 ####[facility] LABORATORYCLIA [id number] [place] [address] [place] Chloride [Moles/Vol] 88 mmol/L Low 98-107 [facility] Comment on above: Order Comment: Speci men Type: BLOOD SPECIMENOrdering Facility: [facility] Address: [address] [place] [address] Performed By: #### 2 4323-8, 2951-2, 61065-0, 2777-1 ####[facility] LABORATORYCLIA [id number] [place] [address] [place] CO2 [Moles/Vol] 26 mmol/L Normal 22-30 [facility] Comment on above: Order Comment: Speci men Type: BLOOD SPECIMENOrdering Facility: [facility] Address: [address] [place] [address] Performed By: #### 2 4323-8, 2951-2, 61634-1, 2777-1 ####[facility] LABORATORYCLIA [id number] [place] [address] [place] Creatinine [Mass/Vol] 0.42 mg/dL Low 0.58-0.96 [facility] Comment on above: Order Comment: Speci men Type: BLOOD SPECIMENOrdering Facility: [facility] Address: [address] [place] [address] Performed By: #### 2 4323-8, 2951-2, 00855-5, 2777-1 ####[facility] LABORATORYCLIA [id number] [address] [place] eGFRcr SerPlBld CKD-EPI 2020 103 mL/min/1.73m??? Normal >=60 [facility] Comment on above: Order Comment: Speci men Type: BLOOD SPECIMENOrdering Facility: [facility] Address: [address] [place] [address] Result Comment: Kaylyn mated Glomerular Filtration Rate [...] GFR. Performed By: #### 2 4323-8, 2951-2, 80116-6, 2777-1 ####[facility] LABORATORYCLIA [id number] [place] [address] [place] Glucose [Mass/Vol] 101 mg/dL High 74-99 [facility] Comment on above: Order Comment: Speci men Type: BLOOD SPECIMENOrdering Facility: [facility] Address: [address] [place] [address] Result Comment: The [place] [employer] (ADA) provides guidance for cutoff [...] Standards of Medical Care in Diabetes 2016, [place] [employer]. Diabetes Care. 2016.39(Suppl 1). Performed By: #### 2 4323-8, 2951-2, 71527-1, 2777-1 ####[facility] LABORATORYCLIA [id number] [place] [address] [place] Potassium [Moles/Vol] 3.5 mmol/L Low 3.7-5.1 [facility] Comment on above: Order Comment: Steve lemons Type: BLOOD SPECIMENOrdering Facility: [facility] Address: [address] [place] [address] Performed By: #### 2 4323-8, 2951-2, 25617-2, 2777-1 ####[facility] LABORATORYCLIA [id number] [place] [address] [place] Protein [Mass/Vol] 5.0 g/dL Low 6.3-8.0 [facility] Comment on above: Order Comment: Steve lemons Type: BLOOD SPECIMENOrdering Facility: [facility] Address: [address] [place] [address] Performed By: #### 2 4323-8, 2951-2, 12947-0, 2777-1 ####[facility] LABORATORYCLIA [id number] [place] [id number] [place] Urea nitrogen [Mass/Vol] 6 mg/dL Low 7-21 [facility] Comment on above: Order Comment: Steve lemons Type: BLOOD SPECIMENOrdering Facility: [facility] Address: [address] [place] [address] Performed By: #### 2 4323-8, 2951-2, 15198-0, 2777-1 ####[facility] LABORATORYCLIA [id number] [place] [id number] [place] Cortis SerPl-mCncon 05-30-20 25 Cortisol [Mass/Vol] 4.8 ug/dL Normal 4.8-19.5 [facility] Comment on above: Order Comment: Speci men Type: BLOOD SPECIMENOrdering Facility: [facility] Address: [address] [place] [address] Result Comment: Prov ided reference range is from 6-10 AM sample collection time.Cortisol Reference Range: 6-10 AM = 4.8-19.5 ug/dL, 4-8 PM = 2.5-11.9 ug/dL Performed By: #### 2 143-6 ####[facility] LABCLIA [id number] [place] [address] [place] Folate SerPl-mCncon 05-30-20 25 Folate [Mass/Vol] 2.8 ng/mL Low >4.7 [facility] Comment on above: Order Comment: Speci men Type: BLOOD SPECIMENOrdering Facility: [facility] Address: [address] [place] [address] Performed By: #### 2 132-9, 2284-8 ####[facility] LABORATORYCLIA [id number] [place] [address] [place] Magnesium SerPl-mCncon 05-30 Magnesium [Mass/Vol] 1.9 mg/dL Normal 1.7-2.3 [facility] Comment on above: Order Comment: Speci men Type: BLOOD SPECIMENOrdering Facility: [facility] Address: [address] [place] [address] Performed By: #### 1 9123-9, 2951-2 ####[facility] LABORATORYCLIA [id number] [place] [id number] [place] NUTRITIONon 05-30-2025 NUTRITION Normal [facility] OPERATIVE NOon 05-30-[address] [facility] PHOSPHATIDYLETHANOL (PETH)on 05-30-2025 EER PETH See Note Normal [facility] Comment on above: Order Comment: Speci men Type: BLOOD SPECIMENOrdering Facility: [facility] Address: [address] [place] [address] Result Comment: Auth orized individuals can access the Minka Enhanced Reportwith an Minka Connect account using the following link.Your local lab can assist you in obtaining the patientreport if you don't have a Connect account.[email or web address] Performed By: #### P ETH ####[facility]OR[facility]IESCLIA [id number] [place] [id number] PETH 16:0/18.2 (PLPETH) 118 ng/mL Normal [facility] Comment on above: Order Comment: Speci men Type: BLOOD SPECIMENOrdering Facility: [facility] Address: [address] [place] [address] Result Comment: Refe rence ranges are not well established. Performed By: #### P ETH ####[facility] LABORATORIESCLIA [id number] [place] [id number] PETH 16:0/18:1 (POPETH) 199 ng/mL Normal [facility] Comment on above: Order Comment: Speci men Type: BLOOD SPECIMENOrdering Facility: [facility] Address: [address] [place] [address] Result Comment: PEth 16:0/18:1 (POPEth)Less than 10 ng/mL............Not detectedLess than 20 ng/mL............Abstinence or light [id number] - 200 ng/mL................Moderate alcohol consumptionGreater than 200 ng/mL........Heavy alcohol consumption or chronicalcohol use(Reference: Ric Lujan and Bethel Long 2018 J. Forensic Sci) Performed By: #### P ETH ####[facility]IESCLIA [id number] [place] [address] PETH INTERPRETATION See Comment Normal [facility] Comment on above: Order Comment: Speci men Type: BLOOD SPECIMENOrdering Facility: [facility] Address: [address] [place] [address] Result Comment: Phos phatidylethanol (PEth) is a [...] was developed and its performance characteristicsdetermined by [facility]. It has not been cleared orapproved by the U.S. Food and Drug Administration. This test wasperformed in a CLIA-certified laboratory and is intended forclinical purposes.Performed By: [facility] [place], [place] [address]Tzjfrtnrwa Director: Hugo Dsouza MD, PhDCLIA Number: [id number] Performed By: #### P ETH ####[facility] AcompliIA [id number] [place] [address] Pathology biopsy report Emir (Tiss)on 05-30-2025 AP DISCLAIMER Normal [facility] Comment on above: Order Comment: Speci men Type: TISSUE SPECIMENOrdering Facility: [facility] Address: [address] [place] [address] Result Comment: Ron bass Developed Test (LDT) Disclaimer:Performance characteristics of immunohistochemical, immunofluorescent, and chromogenic in-situ hybridization tests have been determined by the performing laboratory within the [facility] Department of Pathology and Laboratory Medicine ([facility], [facility], [facility], [facility], [facility], [facility], or [facility]) in a manner consistent with CLIA requirements. One or more of these tests may not have been cleared or approved by the FDA. The [facility] Department of Pathology and Laboratory Medicine is regulated under CLIA as qualified to perform high-complexity testing. These tests are used for clinical purposes. These should not be regarded as investigational or for research. Positive and negative controls stain appropriately. Performed By: #### 6 6121-5 ####[facility] LABIA [id number] [place] [id number] [place] CASE REPORT Normal [facility] Comment on above: Order Comment: Speci men Type: TISSUE SPECIMENOrdering Facility: [facility] Address: [address] [place] [address] Result Comment: Surg ical Pathology Report Case: [id number] Provider: Amanda Dougherty DPM Collected: 05/30/2025 12:59 PMOrdering Location: [facility] Surgery Received: 05/30/2025 02:21 PMPathologist: Ayanna Huerta MDSpecimens: A) - Skin Lesion/Soft Tissue Ulcer (Specify site in comment), right lower leg ulcer tissue biopsy B) - Skin Lesion/Soft Tissue Ulcer (Specify site in comment), left lower leg ulcer tissue biopsy Performed By: #### 6 6121-5 ####[facility] LABIA [id number] [place] [address] [place] CLINICAL HISTORY Normal [facility] Comment on above: Order Comment: Speci cristo Type: TISSUE SPECIMENOrdering Facility: [facility] Address: [address] [place] [address] Result Comment: Pre- op diagnosis:Wound infection [T14.8XXA, L08.9]Cellulitis of left lower extremity [L03.116]Cellulitis of right lower extremity [L03.115] Performed By: #### 6 6121-5 ####[facility] LABIA [id number] [place] [id number] [place] DIAGNOSIS COMMENT Normal [facility] Comment on above: Order Comment: Speci men Type: TISSUE SPECIMENOrdering Facility: [facility] Address: [address] [place] [address] Result Comment: A, B . The histologic [...] is recommended. Performed By: #### 6 6121-5 ####[facility] LABCLIA [id number] [address] FINAL DIAGNOSIS [facility] Comment on above: Order Comment: Speci men Type: TISSUE SPECIMENOrdering Facility: [facility] Address: [address] [place] [address] Result Comment: A. S kin, right lower leg, punch biopsy:- Ulcer with stasis changes and mixed acute and chronic dermal inflammation, see comment.B. Skin, left lower leg, punch biopsy:- Ulcer with dermal fibrosis and mixed acute and chronic inflammation, see comment.MP/TN at 1624 EDT Performed By: #### 6 6121-5 ####[facility] LABCLIA [id number] [address] OF [facility] FINAL PERFORMING LAB [facility] Comment on above: Order Comment: Speci cristo Type: TISSUE SPECIMENOrdering Facility: [facility] Address: [address] [place] [address] Result Comment: Diag nostic interpretation performed at: [facility], [address] [place] [address] CLIA# [id number] Director: Moises Gonzalez MD Performed By: #### 6 6121-5 ####[facility] LABCLIA [id number] [place] [address] [place] GROSS DESCRIPTION Normal [facility] Comment on above: Order Comment: Speci men Type: TISSUE SPECIMENOrdering Facility: [facility] Address: [address] [place] [address] Result Comment: A. S kin Lesion/Soft Tissue [...] 30, 2025 4:26 PMGross examination performed at [facility], [address] [place] [address] Performed By: #### 6 6121-5 ####[facility] LABCLIA [id number] [place] [address] [place] Phosphate SerPl-mCncon 05-30 Phosphate [Mass/Vol] 2.6 mg/dL Low 2.7-4.8 [facility] Comment on above: Order Comment: Speci men Type: BLOOD SPECIMENOrdering Facility: [facility] Address: [address] [place] [address] Performed By: #### 2 4323-8, 2951-2, 59536-2, 2777-1 ####[facility]ORYCLIA [id number] [place] [address] [place] Procalcitonin SerPl-mCncon 0 05-30-2025 Procalcitonin [Mass/Vol] 0.29 ng/mL High <0.09 [facility] Comment on above: Order Comment: Speci men Type: BLOOD SPECIMENOrdering Facility: [facility] Address: [address] [place] [address] Result Comment: For a guided interpretation of test results, please visit the Change in Procalcitonin Calculator, [email or web address]. Performed By: #### 2 4323-8, 2951-2, 71496-9, 2777-1 ####[facility]ORATORYCLIA [id number] [place] [address] [place] Sodium SerPl-sCncon 05-30-20 25 Sodium [Moles/Vol] 125 mmol/L Low 136-144 [facility] Comment on above: Order Comment: Speci men Type: BLOOD SPECIMENOrdering Facility: [facility] Address: [address] [place] [address] Performed By: #### 1 9123-9, 2951-2 ####[facility] LABORATORYCLIA [id number] [address] STATES OF [facility] Sodium [Moles/Vol] 124 mmol/L Low 136-144 [facility] Comment on above: Order Comment: Speci men Type: BLOOD SPECIMENOrdering Facility: [facility] Address: [address] [place] [address] Performed By: #### 2 4323-8, 2951-2, 05657-7, 2777-1 ####[facility] LABORATORYCLIA [id number] [place] [address] [place] Vit B12 SerPl-mCncon 025 Cobalamin (Vitamin B12) [Mass/Vol] 1660 pg/mL High 232-1245 [facility] Comment on above: Order Comment: Speci men Type: BLOOD SPECIMENOrdering Facility: [facility] Address: [address] [place] [address] Performed By: #### 2 132-9, 2284-8 ####[facility] LABORATORYCLIA [id number] [address] 25(OH)D3 SerPl-mCncon 2024 25-hydroxyvitamin D3 [Mass/Vol] 61.8 ng/mL Normal 31.0-80.0 [facility] Comment on above: Order Comment: Speci men Type: BLOOD SPECIMENOrdering Facility: [facility] Address: [address] [place] [address] Performed By: #### 1 989-3 ####[facility] LABCLIA [id number] [facility] [id number] [address] [place] ALLIED HEALTHon 05-29-2025 ALLIED HEALTH Normal [facility] Bacteria Bld Culton 05-29-20 Bacteria identified Cx Nom (Bld) CULTURE, BLOOD: No growth [address] [facility] Comment on above: Performed By: #### 6 00-7 ####[facility] LABCLIA [id number] [facility] [id number] [address] [place] Bacteria identified Cx Nom (Bld) CULTURE, BLOOD: No growth 5 days GRAM STAIN: This blood culture had less than the recommended 8 ml per bottle, which could decrease the sensitivity of the test. [facility] Comment on above: Performed By: #### 6 00-7 ####[facility] LABCLIA [id number] [facility] [id number], [place] [address] [place] Bacteria Ur Culton Bacteria identified Cx Nom (U) CULTURE, URINE: No growth (<1,000 CFU/ml) [facility] Comment on above: Performed By: #### 6 30-4 ####[facility] LABCLIA [id number] [facility] [place]38[place], [place] [address] [place] CASE MGT INIT ASSESon 2024 CASE MGT INIT [facility] CBC panel Auto (Bld)on 05-29 Erythrocyte distribution width (RBC) [Ratio] 15.5 % High 11.5-15.0 [facility] Comment on above: Order Comment: Speci men Type: BLOOD SPECIMENOrdering Facility: [facility] Address: [address] [place] [address] Performed By: #### 5 8410-2 ####[facility] LABORATORYCLIA [id number] [address] Hematocrit (Bld) [Volume fraction] 26.2 % Low 36.0-46.0 [facility] Comment on above: Order Comment: Speci men Type: BLOOD SPECIMENOrdering Facility: [facility] Address: [address] [place] [address] Performed By: #### 5 8410-2 ####[facility] LABORATORYCLIA [id number] [address] [place] Hemoglobin (Bld) [Mass/Vol] 9.6 g/dL Low 11.5-15.5 [facility] Comment on above: Order Comment: Speci men Type: BLOOD SPECIMENOrdering Facility: [facility] Address: [address] [place] [address] Performed By: #### 5 8410-2 ####[facility] LABORATORYCLIA [id number] [address] MCH (RBC) [Entitic mass] 37.9 pg High 26.0-34.0 [facility] Comment on above: Order Comment: Speci men Type: BLOOD SPECIMENOrdering Facility: [facility] Address: [address] [place] [address] Performed By: #### 5 8410-2 ####[facility] LABORATORYCLIA [id number] [address] [place] MCHC (RBC) [Mass/Vol] 36.6 g/dL High 30.5-36.0 [facility] Comment on above: Order Comment: Speci men Type: BLOOD SPECIMENOrdering Facility: [facility] Address: [address] [place] [address] Performed By: #### 5 8410-2 ####[facility] LABORATORYCLIA [id number] [address] MCV (RBC) [Entitic vol] 103.6 fL High 80.0-100.0 [facility] Comment on above: Order Comment: Speci men Type: BLOOD SPECIMENOrdering Facility: [facility] Address: [address] [place] [address] Performed By: #### 5 8410-2 ####[facility] LABORATORYCLIA [id number] [address] [place] Nucleated RBC (Bld) [#/Vol] 10*3/uL Normal <0.01 [facility] Comment on above: Order Comment: Speci men Type: BLOOD SPECIMENOrdering Facility: [facility] Address: [address] [place] [address] Performed By: #### 5 8410-2 ####[facility] LABORATORYCLIA [id number] [place] [address] [place] Platelet mean volume (Bld) [Entitic vol] 9.5 fL Normal 9.0-12.7 [facility] Comment on above: Order Comment: Speci men Type: BLOOD SPECIMENOrdering Facility: [facility] Address: [address] [place] [address] Performed By: #### 5 8410-2 ####[facility] LABORATORYCLIA [id number] [address] [place] Platelets (Bld) [#/Vol] 94 10*3/uL Low 150-400 [facility] Comment on above: Order Comment: Speci men Type: BLOOD SPECIMENOrdering Facility: [facility] Address: [address] [place] [address] Result Comment: No c lot detected. Performed By: #### 5 8410-2 ####[facility] LABORATORYCLIA [id number] [address] [place] RBC (Bld) [#/Vol] 2.53 10*6/uL Low 3.90-5.20 [facility] Comment on above: Order Comment: Speci men Type: BLOOD SPECIMENOrdering Facility: [facility] Address: [address] [place] [address] Performed By: #### 5 8410-2 ####[facility] LABORATORYCLIA [id number] [place] [address] [facility] [place] WBC (Bld) [#/Vol] 6.38 10*3/uL Normal 3.70-11.00 [facility] Comment on above: Order Comment: Speci men Type: BLOOD SPECIMENOrdering Facility: [facility] Address: [address] [place] [address] Performed By: #### 5 8410-2 ####[facility] LABORATORYCLIA [id number] [place] [address] [place] CONSULTon 05-29-2025 CONSULT Normal [facility] CONSULT Normal [facility] CONSULT Normal [facility] CONSULT Normal [facility] CONSULT Normal [facility] COPPER BLOODon 05-29-2025 Copper [Mass/Vol] 72 ug/dL Low 80-155 [facility] Comment on above: Order Comment: Steve cristo Type: BLOOD SPECIMENOrdering Facility: [facility] Address: [address] [place] [address] Result Comment: This test was developed, and its performance characteristics determined by the [facility] Department of Pathology and Laboratory Medicine. It has not been cleared or approved by the FDA. The [facility] Department of Pathology and Laboratory Medicine is regulated under CLIA as qualified to perform high-complexity testing. This test is used for clinical purposes. It should not be regarded as investigational or for research. Performed By: #### 5 763-8, COPPER ####[facility] LABCLIA [id number] [place] [id number] [place] CT ABD/PEL WO IVCONon 2024 CT ABD/PEL WO IVCON Normal [facility] Comprehensive metabolic 2000 panelon 05-29-2025 Albumin [Mass/Vol] 2.7 g/dL Low 3.9-4.9 [facility] Comment on above: Order Comment: Speci men Type: BLOOD SPECIMENOrdering Facility: [facility] Address: [address] [place] [address] Performed By: #### 1 9123-9, 3084-1, 94425-8, 2777-1, 3016-3, 67300-4 ####[facility] LABORATORYCLIA [id number] [place] [address] [place] ALP [Catalytic activity/Vol] 222 U/L High 34-123 [facility] Comment on above: Order Comment: Speci men Type: BLOOD SPECIMENOrdering Facility: [facility] Address: [address] [place] [address] [place] [address] Performed By: #### 1 9123-9, 3084-1, 98094-6, 2777-1, 3016-3, 14975-4 ####[facility] LABORATORYCLIA [id number] [place] [address] [place] ALT [Catalytic activity/Vol] 14 U/L Normal 7-38 [facility] Comment on above: Order Comment: Speci men Type: BLOOD SPECIMENOrdering Facility: [facility] Address: [address] [place] [address] Performed By: #### 1 9123-9, 3084-1, 91421-3, 2777-1, 3016-3, 29665-4 ####[facility]ORATORYCLIA [id number] [place] [address] [place] Anion gap [Moles/Vol] 12 mmol/L Normal 8-15 [facility] Comment on above: Order Comment: Speci men Type: BLOOD SPECIMENOrdering Facility: [facility] Address: [address] [place] [address] Performed By: #### 1 9123-9, 3084-1, 50797-2, 2777-1, 3016-3, 33594-7 ####[facility]ORATORYCLIA [id number] [place] [address] [place] AST [Catalytic activity/Vol] 49 U/L High 13-35 [facility] Comment on above: Order Comment: Speci men Type: BLOOD SPECIMENOrdering Facility: [facility] Address: [address] [place], [place] [address] Performed By: #### 1 9123-9, 3084-1, 69840-7, 2777-1, 3016-3, 07739-9 ####[facility] LABORATORYCLIA [id number] [place] [address] [place] Bilirubin [Mass/Vol] 5.7 mg/dL High 0.2-1.3 [facility] Comment on above: Order Comment: Speci men Type: BLOOD SPECIMENOrdering Facility: [facility] Address: [address] [place] [address] Performed By: #### 1 9123-9, 3084-1, 53478-9, 2777-1, 3016-3, 17861-9 ####[facility]ORATORYCLIA [id number] [place] [address] [place] Calcium [Mass/Vol] 7.8 mg/dL Low 8.5-10.2 [facility] Comment on above: Order Comment: Speci men Type: BLOOD SPECIMENOrdering Facility: [facility] Address: [address] [place] [address] Performed By: #### 1 9123-9, 3084-1, 01137-5, 2777-1, 3016-3, 75740-9 ####[facility] LABORATORYCLIA [id number] [place] [address] [place] Chloride [Moles/Vol] 87 mmol/L Low 98-107 [facility] Comment on above: Order Comment: Speci men Type: BLOOD SPECIMENOrdering Facility: [facility] Address: [address] [place] [address] Performed By: #### 1 9123-9, 3084-1, 02144-3, 2777-1, 3016-3, 78012-3 ####[facility]ORATORYCLIA [id number] [place] [address] [place] CO2 [Moles/Vol] 26 mmol/L Normal 22-30 [facility] Comment on above: Order Comment: Speci men Type: BLOOD SPECIMENOrdering Facility: [facility] Address: [address] [place] [address] Performed By: #### 1 9123-9, 3084-1, 53669-7, 2777-1, 3016-3, 23503-9 ####[facility]ORATORYCLIA [id number] [place] [address] [place] Creatinine [Mass/Vol] 0.47 mg/dL Low 0.58-0.96 [facility] Comment on above: Order Comment: Speci men Type: BLOOD SPECIMENOrdering Facility: [facility] Address: [address] [place] [address] Performed By: #### 1 9123-9, 3084-1, 21989-6, 2777-1, 3016-3, 18034-5 ####[facility] LABORATORYCLIA [id number] [place] [id number] [place] eGFRcr SerPlBld CKD-EPI 2020 101 mL/min/1.73m??? Normal >=60 [facility] Comment on above: Order Comment: Steve lemons Type: BLOOD SPECIMENOrdering Facility: [facility] Address: [address] [place] [address] Result Comment: Kaylyn mated Glomerular Filtration Rate [...] GFR. Performed By: #### 1 9123-9, 3084-1, 09252-8, 2777-1, 3016-3, 85262-6 ####[facility] LABORATORYCLIA [id number] [place] [id number] [place] Glucose [Mass/Vol] 90 mg/dL Normal 74-99 [facility] Comment on above: Order Comment: Steve cristo Type: BLOOD SPECIMENOrdering Facility: [facility] Address: [address] [place] [address] Result Comment: The [place] [employer] (ADA) provides guidance for cutoff [...] Standards of Medical Care in Diabetes 2016, [place] [employer]. Diabetes Care. 2016.39(Suppl 1). Performed By: #### 1 9123-9, 3084-1, 99706-5, 2777-1, 3016-3, 12622-4 ####[facility] LABORATORYCLIA [id number] [place] [address] [place] Potassium [Moles/Vol] 2.6 mmol/L Low 3.7-5.1 [facility] Comment on above: Order Comment: Speci men Type: BLOOD SPECIMENOrdering Facility: [facility] Address: [address] [place] [address] Performed By: #### 1 9123-9, 3084-1, 52866-4, 2777-1, 3016-3, 92892-8 ####[facility] LABORATORYCLIA [id number] [place] [address] [place] Protein [Mass/Vol] 5.3 g/dL Low 6.3-8.0 [facility] Comment on above: Order Comment: Speci men Type: BLOOD SPECIMENOrdering Facility: [facility] Address: [address] [place] [address] Performed By: #### 1 9123-9, 3084-1, 37812-5, 2777-1, 3016-3, 28859-7 ####[facility] LABORATORYCLIA [id number] [place] [address] [place] Sodium [Moles/Vol] 125 mmol/L Low 136-144 [facility] Comment on above: Order Comment: Speci men Type: BLOOD SPECIMENOrdering Facility: [facility] Address: [address] [place] [address] Performed By: #### 1 9123-9, 3084-1, 42599-1, 2777-1, 3016-3, 08032-5 ####[facility] LABORATORYCLIA [id number] [place] [address] [place] Urea nitrogen [Mass/Vol] 6 mg/dL Low 7-21 [facility] Comment on above: Order Comment: Speci men Type: BLOOD SPECIMENOrdering Facility: [facility] Address: [address] [place] [address] [place] [address] Performed By: #### 1 9123-9, 3084-1, 98148-3, 2777-1, 3016-3, 09196-2 ####[facility]ORATORYCLIA [id number] [address] OF [facility] ECG COMPLETEon 05-29-2025 ECG COMPLETE Normal [facility] Lactate (Bld) [Moles/Vol]on 05-29-2025 Lactate [Moles/Vol] 1.7 mmol/L Normal 0.5-2.2 [facility] Comment on above: Order Comment: Speci men Type: BLOOD SPECIMENOrdering Facility: [facility] Address: [address] [place] [address] Performed By: #### 3 2693-4 ####[facility] LABORATORYCLIA [id number] [address] [facility]29 Magnesium [Mass/Vol] 1.3 mg/dL Low 1.7-2.3 [facility] Comment on above: Order Comment: Speci men Type: BLOOD SPECIMENOrdering Facility: [facility] Address: [address] [place] [address] Performed By: #### 1 9123-9, 3084-1, 37174-7, 2777-1, 3016-3, 38461-4 ####[facility]ORATORYCLIA [id number] [address] NT-proBNP SerPl-ncon 05-29 Natriuretic peptide.B prohormone N-Terminal [Mass/Vol] 2188 pg/mL High <125 [facility] Comment on above: Order Comment: Speci men Type: BLOOD SPECIMENOrdering Facility: [facility] Address: [address] [place] [address] [place] [address] Performed By: #### 1 9123-9, 3084-1, 00756-6, 2777-1, 3016-3, 13697-3 ####[facility] LABORATORYCLIA [id number] [place] [address] [place] Osmolality Uron 05-29-2025 Osmolality (U) [Osmolality] 516 mosm/kg Normal 50-1200 [facility] Comment on above: Order Comment: Speci men Type: URINE SPECIMENOrdering Facility: [facility] Address: [address] [place] [address] Performed By: #### 2 695-5 ####[facility] LABCLIA [id number] [address] [place] PHOSPHATIDYLETHANOL (PETH)on 05-29-2025 EER PETH See Note Normal [facility] Comment on above: Order Comment: Speci men Type: BLOOD SPECIMENOrdering Facility: [facility] Address: [address] [place] [address] Result Comment: Auth orized individuals can access the Minka Enhanced Reportwith an Minka Connect account using the following link.Your local lab can assist you in obtaining the patientreport if you don't have a Connect account.[email or web address] Performed By: #### P ETH ####[facility] LABORATORIESCLIA [id number] [place] [address] PETH 16:0/18.2 (PLPETH) 148 ng/mL Normal [facility] Comment on above: Order Comment: Speci men Type: BLOOD SPECIMENOrdering Facility: [facility] Address: [address] [place] [address] Result Comment: Refe rence ranges are not well established. Performed By: #### P ETH ####[facility] LABORATORIESCLIA [id number] [place] [address] PETH 16:0/18:1 (POPETH) 249 ng/mL Normal [facility] Comment on above: Order Comment: Speci men Type: BLOOD SPECIMENOrdering Facility: [facility] Address: [address] [place] [address] Result Comment: PEth 16:0/18:1 (POPEth)Less than 10 ng/mL............Not detectedLess than 20 ng/mL............Abstinence or light oulxdkqigyaxsdtihe96 - 200 ng/mL................Moderate alcohol consumptionGreater than 200 ng/mL........Heavy alcohol consumption or chronicalcohol use(Reference: Ric Lujan and Bethel Long 2018 J. Forensic Sci) Performed By: #### P ETH ####[facility] HOSPITALIA [id number] [place] [address] PETH INTERPRETATION See Comment Normal [facility] Comment on above: Order Comment: Speci men Type: BLOOD SPECIMENOrdering Facility: [facility] Address: [address] [place] [address] [place] [address] Result Comment: Phos phatidylethanol (PEth) is a [...] was developed and its performance characteristicsdetermined by [facility]. It has not been cleared orapproved by the U.S. Food and Drug Administration. This test wasperformed in a CLIA-certified laboratory and is intended forclinical purposes.Performed By: [facility] [place], [place] [address]Gsulhrqwgx Director: Hugo Dsouza MD, PhDCLIA Number: [id number] Performed By: #### P ETH ####[facility]ORATORIESCLIA [id number] [place] [address] Phosphate SerPl-mCncon 05-29 Phosphate [Mass/Vol] 1.7 mg/dL Low 2.7-4.8 [facility] Comment on above: Order Comment: Speci men Type: BLOOD SPECIMENOrdering Facility: [facility] Address: [address] [place] [address] Performed By: #### 1 9123-9, 3084-1, 85670-7, 2777-1, 3016-3, 84372-5 ####[facility]ORY[facility] [id number] [place] [address] [place] STAPHYLOCOCCUS AUREUS AND MR SA SCREEN, PCR, NASALon 05-29-2025 S. aureus and MRSA panel JAMESON+probe (Nose) Not detected Normal Not Detected [facility] Comment on above: Order Comment: Speci men Type: SWABOrdering Facility: [facility] Address: [address] [place] [address] Performed By: #### S APCR ####[facility] LABCLIA [id number] [place] [address] [place] Sodium ?Tm Ur-sCncon 025 Sodium Unsp time (U) [Moles/Vol] <20 Normal 14-216 [facility] [facility] Comment on above: Order Comment: Speci men Type: URINE SPECIMENOrdering Facility: [facility] Address: [address] [place] [address] Performed By: #### 3 5678-2 ####[facility] LABCLIA [id number] [place] [id number] [place] Sodium SerPl-sCncon 05-29-20 25 Sodium [Moles/Vol] 124 mmol/L Low 136-144 [facility] Comment on above: Order Comment: Speci men Type: BLOOD SPECIMENOrdering Facility: [facility] Address: [address] [place] [address] Performed By: #### 2 951-2 ####[facility] LABORATORYCLIA [id number] [place] [address] [place] Sodium [Moles/Vol] 121 mmol/L Low 136-144 [facility] Comment on above: Order Comment: Speci men Type: BLOOD SPECIMENOrdering Facility: [facility] Address: [address] [place], [place] [address] Performed By: #### 2 951-2 ####[facility] LABORATORYCLIA [id number] [place] [id number] [place] TSH SerPl-aCncon 05-29-2025 TSH Qn 0.975 m[IU]/L Normal 0.270-4.20 0 [facility] Comment on above: Order Comment: Speci men Type: BLOOD SPECIMENOrdering Facility: [facility] Address: [address] [place], [place] [address] Performed By: #### 1 9123-9, 3084-1, 83606-6, 2777-1, 3016-3, 33665-9 ####[facility] LABORATORYCLIA [id number] [place] [address] [place] US ABD RIGHT UPPER QUADRANTo n 05-29-2025 US ABD RIGHT UPPER QUADRANT Normal [facility] US ANKLE BRACHIAL INDICESon 05-29-2025 US ANKLE BRACHIAL INDICES Normal [facility] Urate SerPl-mCncon Urate [Mass/Vol] 2.4 mg/dL Low 2.5-6.6 [facility] Comment on above: Order Comment: Speci men Type: BLOOD SPECIMENOrdering Facility: [facility] Address: [address] [place], [place] [address] Performed By: #### 1 9123-9, 3084-1, 91041-6, 2777-1, 3016-3, 64433-1 ####[facility] LABORATORYCLIA [id number] [place] [id number] [facility] [place] VITAMIN B6/PYRIDOXINon 05-29 VITAMIN B6 6.4 nmol/L Low 20.0-125.0 [facility] Comment on above: Order Comment: Speci men Type: BLOOD SPECIMENOrdering Facility: [facility] Address: [address] [place] [address] Result Comment: INTE RPRETIVE INFORMATION: Vitamin B6 (Pyridoxal 5-Phosphate)Pyridoxal 5'-phosphate measured in a specimen collected followingan 8-hour or overnight fast accurately indicates vitamin N8zcpscuypjvy status. Non-fasting specimen concentration reflectsrecent vitamin intake.This test was developed and its performance characteristicsdetermined by [facility]. It has not been cleared orapproved by the [place] Food and Drug Administration. This test wasperformed in a CLIA certified laboratory and is intended forclinical purposes.Performed By: [facility] [place] [address]Ntcmnrindn Director: Hugo Dsouza MD, PhDCLIA Number: [id number] Performed By: #### V ITB6 ####[facility] HOSPITALIA [id number] [place] [address] Zinc SerPl-ncon 05-29-2025 Zinc [Mass/Vol] 33 ug/dL Low 60-120 [facility] Comment on above: Order Comment: Speci men Type: BLOOD SPECIMENOrdering Facility: [facility] Address: [address] [place] [address] Result Comment: This test was developed, and its performance characteristics determined by the [facility] Department of Pathology and Laboratory Medicine. It has not been cleared or approved by the FDA. The [facility] Department of Pathology and Laboratory Medicine is regulated under CLIA as qualified to perform high-complexity testing. This test is used for clinical purposes. It should not be regarded as investigational or for research. Performed By: #### 5 763-8, COPPER ####[facility] LABCLIA [id number] [place] [id number] [place] CBC W Auto Differential pane l (Bld)on 05-28-2025 Basophils (Bld) [#/Vol] 10*3/uL Normal <0.11 [facility] Comment on above: Order Comment: Speci men Type: BLOOD SPECIMENOrdering Facility: [facility] Address: [address] [place] [address] Performed By: #### 5 7021-8 ####[facility]ORATORYCLIA [id number] [place] [address] [place] Basophils/100 WBC (Bld) 0.3 % Normal [facility] Comment on above: Order Comment: Speci men Type: BLOOD SPECIMENOrdering Facility: [facility] Address: [address] [place] [address] Performed By: #### 5 7021-8 ####[facility] LABORATORYCLIA [id number] [place] [address] [place] Differential cell count method Nom (Bld) Auto Normal [facility] Comment on above: Order Comment: Speci men Type: BLOOD SPECIMENOrdering Facility: [facility] Address: [address] [place] [address] Performed By: #### 5 7021-8 ####[facility] LABORATORYCLIA [id number] [place] [address] [place] Eosinophils (Bld) [#/Vol] 10*3/uL Normal <0.46 [facility] Comment on above: Order Comment: Speci men Type: BLOOD SPECIMENOrdering Facility: [facility] Address: [address] [place] [address] Performed By: #### 5 7021-8 ####[facility] LABORATORYCLIA [id number] [address] [place] Eosinophils/100 WBC (Bld) 0.1 % Normal [facility] Comment on above: Order Comment: Speci men Type: BLOOD SPECIMENOrdering Facility: [facility] Address: [address] [place] [address] Performed By: #### 5 7021-8 ####[facility] LABORATORYCLIA [id number] [place] [address] [place] Erythrocyte distribution width (RBC) [Ratio] 15.3 % High 11.5-15.0 [facility] Comment on above: Order Comment: Speci men Type: BLOOD SPECIMENOrdering Facility: [facility] Address: [address] [place] [address] Performed By: #### 5 7021-8 ####[facility] LABORATORYCLIA [id number] [place] [address] [place] Hematocrit (Bld) [Volume fraction] 28.8 % Low 36.0-46.0 [facility] Comment on above: Order Comment: Speci men Type: BLOOD SPECIMENOrdering Facility: [facility] Address: [address] [place] [address] Performed By: #### 5 7021-8 ####[facility] LABORATORYCLIA [id number] [place] [address] [place] Hemoglobin (Bld) [Mass/Vol] 10.8 g/dL Low 11.5-15.5 [facility] Comment on above: Order Comment: Speci men Type: BLOOD SPECIMENOrdering Facility: [facility] Address: [address] [place] [address] Performed By: #### 5 7021-8 ####[facility] LABORATORYCLIA [id number] [place] [address] [place] Immature granulocytes (Bld) [#/Vol] 0.04 10*3/uL Normal <0.10 [facility] Comment on above: Order Comment: Speci men Type: BLOOD SPECIMENOrdering Facility: [facility] Address: [address] [place] [address] Performed By: #### 5 7021-8 ####[facility] LABORATORYCLIA [id number] [place] [address] [place] Immature granulocytes/100 WBC (Bld) 0.5 % Normal [facility] Comment on above: Order Comment: Speci men Type: BLOOD SPECIMENOrdering Facility: [facility] Address: [address] [place] [address] Performed By: #### 5 7021-8 ####[facility] LABORATORYCLIA [id number] [place] [address] [place] Lymphocytes (Bld) [#/Vol] 0.58 10*3/uL Low 1.00-4.00 [facility] Comment on above: Order Comment: Speci men Type: BLOOD SPECIMENOrdering Facility: [facility] Address: [address] [place] [address] Performed By: #### 5 7021-8 ####[facility] LABORATORYCLIA [id number] [address] Lymphocytes/100 WBC (Bld) 7.4 % Normal [facility] Comment on above: Order Comment: Speci men Type: BLOOD SPECIMENOrdering Facility: [facility] Address: [address] [place] [address] Performed By: #### 5 7021-8 ####[facility] LABORATORYCLIA [id number] [place] [address] [place] MCH (RBC) [Entitic mass] 38.7 pg High 26.0-34.0 [facility] Comment on above: Order Comment: Speci men Type: BLOOD SPECIMENOrdering Facility: [facility] Address: [address] [place] [address] Performed By: #### 5 7021-8 ####[facility] LABORATORYCLIA [id number] [address] [place] MCHC (RBC) [Mass/Vol] 37.5 g/dL High 30.5-36.0 [facility] Comment on above: Order Comment: Speci men Type: BLOOD SPECIMENOrdering Facility: [facility] Address: [address] [place] [address] Performed By: #### 5 7021-8 ####[facility] LABORATORYCLIA [id number] [address] MCV (RBC) [Entitic vol] 103.2 fL High 80.0-100.0 [facility] Comment on above: Order Comment: Speci men Type: BLOOD SPECIMENOrdering Facility: [facility] Address: [address] [place] [address] Performed By: #### 5 7021-8 ####[facility] LABORATORYCLIA [id number] [address] Monocytes (Bld) [#/Vol] 0.51 10*3/uL Normal <0.87 [facility] Comment on above: Order Comment: Speci men Type: BLOOD SPECIMENOrdering Facility: [facility] Address: [address] [place] [address] Performed By: #### 5 7021-8 ####[facility] LABORATORYCLIA [id number] [place] [address] [place] Monocytes/100 WBC (Bld) 6.5 % Normal [facility] Comment on above: Order Comment: Speci men Type: BLOOD SPECIMENOrdering Facility: [facility] Address: [address] [place] [address] Performed By: #### 5 7021-8 ####[facility] LABORATORYCLIA [id number] [place] [address] [place] Neutrophils (Bld) [#/Vol] 6.72 10*3/uL Normal 1.45-7.50 [facility] Comment on above: Order Comment: Speci men Type: BLOOD SPECIMENOrdering Facility: [facility] Address: [address] [place] [address] Performed By: #### 5 7021-8 ####[facility] LABORATORYCLIA [id number] [place] [address] [place] Neutrophils/100 WBC (Bld) 85.2 % Normal [facility] Comment on above: Order Comment: Speci men Type: BLOOD SPECIMENOrdering Facility: [facility] Address: [address] [place] [address] Performed By: #### 5 7021-8 ####[facility] LABORATORYCLIA [id number] [place] [address] [place] Nucleated RBC (Bld) [#/Vol] 10*3/uL Normal <0.01 [facility] Comment on above: Order Comment: Speci men Type: BLOOD SPECIMENOrdering Facility: [facility] Address: [address] [place] [address] Performed By: #### 5 7021-8 ####[facility] LABORATORYCLIA [id number] [place] [address] [place] Nucleated RBC/100 WBC (Bld) [Ratio] 0.0 /100 WBC Normal [facility] Comment on above: Order Comment: Speci men Type: BLOOD SPECIMENOrdering Facility: [facility] Address: [address] [place] [address] Performed By: #### 5 7021-8 ####[facility] LABORATORYCLIA [id number] [place] [address] [place] Platelet mean volume (Bld) [Entitic vol] 10.2 fL Normal 9.0-12.7 [facility] Comment on above: Order Comment: Speci men Type: BLOOD SPECIMENOrdering Facility: [facility] Address: [address] [place] [address] Performed By: #### 5 7021-8 ####[facility] LABORATORYCLIA [id number] [place] [address] [place] Platelets (Bld) [#/Vol] 134 10*3/uL Low 150-400 [facility] Comment on above: Order Comment: Speci men Type: BLOOD SPECIMENOrdering Facility: [facility] Address: [address] [place] [address] Performed By: #### 5 7021-8 ####[facility] LABORATORYCLIA [id number] [place] [address] [place] RBC (Bld) [#/Vol] 2.79 10*6/uL Low 3.90-5.20 [facility] Comment on above: Order Comment: Speci men Type: BLOOD SPECIMENOrdering Facility: [facility] Address: [address] [place] [address] Performed By: #### 5 7021-8 ####[facility] LABORATORYCLIA [id number] [place] [address] [place] WBC (Bld) [#/Vol] 7.88 10*3/uL Normal 3.70-11.00 [facility] Comment on above: Order Comment: Speci men Type: BLOOD SPECIMENOrdering Facility: [facility] Address: [address] [place] [address] Performed By: #### 5 7021-8 ####[facility] LABORATORYCLIA [id number] [place] [id number] [place] CRP SerPl-mCncon 05-28-2025 CRP [Mass/Vol] 9.5 mg/dL High <0.9 [facility] Comment on above: Order Comment: Speci men Type: BLOOD SPECIMENOrdering Facility: [facility] Address: [address] [place], [place] [address] Performed By: #### 1 988-5, 58680-3, TSHRF, 2276-4, 2951-2 ####[facility] LABORATORYCLIA [id number] [address] Comprehensive metabolic 2000 panelon 05-28-2025 Albumin [Mass/Vol] 3.1 g/dL Low 3.9-4.9 [facility] Comment on above: Order Comment: Speci men Type: BLOOD SPECIMENOrdering Facility: [facility] Address: [address] [place] [address] Performed By: #### 2 4323-8 ####[facility] LABORATORYCLIA [id number] [address] [place] ALP [Catalytic activity/Vol] 285 U/L High 34-123 [facility] Comment on above: Order Comment: Speci men Type: BLOOD SPECIMENOrdering Facility: [facility] Address: [address] [place] [address] Performed By: #### 2 4323-8 ####[facility] LABORATORYCLIA [id number] [address] STATES [facility] ALT [Catalytic activity/Vol] 18 U/L Normal 7-38 [facility] Comment on above: Order Comment: Speci men Type: BLOOD SPECIMENOrdering Facility: [facility] Address: [address] [place] [address] Performed By: #### 2 4323-8 ####[facility] LABORATORYCLIA [id number] [address] Anion gap [Moles/Vol] 14 mmol/L Normal 8-15 [facility] Comment on above: Order Comment: Speci men Type: BLOOD SPECIMENOrdering Facility: [facility] Address: [address] [place] [address] Performed By: #### 2 4323-8 ####[facility] LABORATORYCLIA [id number] [place] [address] [place] AST [Catalytic activity/Vol] Normal [facility] Comment on above: Order Comment: Speci men Type: BLOOD SPECIMENOrdering Facility: [facility] Address: [address] [place] [address] Result Comment: Unab le to assay due to interference from hemolysis. Suggest reorder as clinically indicated. Performed By: #### 2 4323-8 ####[facility] LABORATORYCLIA [id number] [place] [address] [place] Bilirubin [Mass/Vol] 6.9 mg/dL High 0.2-1.3 [facility] Comment on above: Order Comment: Speci men Type: BLOOD SPECIMENOrdering Facility: [facility] Address: [address] [place] [address] Performed By: #### 2 4323-8 ####[facility] LABORATORYCLIA [id number] [place] [address] [place] Calcium [Mass/Vol] 8.7 mg/dL Normal 8.5-10.2 [facility] Comment on above: Order Comment: Speci men Type: BLOOD SPECIMENOrdering Facility: [facility] Address: [address] [place] [address] Performed By: #### 2 4323-8 ####[facility] LABORATORYCLIA [id number] [place] [address] [place] Chloride [Moles/Vol] 82 mmol/L Low 98-107 [facility] Comment on above: Order Comment: Speci men Type: BLOOD SPECIMENOrdering Facility: [facility] Address: [address] [place] [address] Performed By: #### 2 4323-8 ####[facility] LABORATORYCLIA [id number] [place] [address] [place] CO2 [Moles/Vol] 27 mmol/L Normal 22-30 [facility] Comment on above: Order Comment: Speci men Type: BLOOD SPECIMENOrdering Facility: [facility] Address: [address] [place] [address] Performed By: #### 2 4323-8 ####[facility] LABORATORYCLIA [id number] [place] [address] [place] Creatinine [Mass/Vol] 0.64 mg/dL Normal 0.58-0.96 [facility] Comment on above: Order Comment: Speci men Type: BLOOD SPECIMENOrdering Facility: [facility] Address: [address] [place] [address] Performed By: #### 2 4323-8 ####[facility] LABORATORYCLIA [id number] [address] eGFRcr SerPlBld CKD-EPI 2020 93 mL/min/1.73m??? Normal >=60 [facility] Comment on above: Order Comment: Steve lemons Type: BLOOD SPECIMENOrdering Facility: [facility] Address: [address] [place] [address] Result Comment: Kaylyn mated Glomerular Filtration Rate [...] Performed By: #### 2 4323-8 ####[facility] LABORATORYCLIA [id number] [place] [address] [place] Glucose [Mass/Vol] 105 mg/dL High 74-99 [facility] Comment on above: Order Comment: Steve lemons Type: BLOOD SPECIMENOrdering Facility: [facility] Address: [address] [place] [address] Result Comment: The [place] [employer] (ADA) provides guidance for cutoff [...] Standards of Medical Care in Diabetes 2016, [place] [employer]. Diabetes Care. 2016.39(Suppl 1). Performed By: #### 2 4323-8 ####[facility] LABORATORYCLIA [id number] [place] [address] [place] Potassium [Moles/Vol] 3.2 mmol/L Low 3.7-5.1 [facility] Comment on above: Order Comment: Speci men Type: BLOOD SPECIMENOrdering Facility: [facility] Address: [address] [place] [address] Performed By: #### 2 4323-8 ####[facility] LABORATORYCLIA [id number] [place] [address] [place] Protein [Mass/Vol] 6.3 g/dL Normal 6.3-8.0 [facility] Comment on above: Order Comment: Speci men Type: BLOOD SPECIMENOrdering Facility: [facility] Address: [address] [place] [address] Performed By: #### 2 4323-8 ####[facility] LABORATORYCLIA [id number] [address] [place] Sodium [Moles/Vol] 123 mmol/L Low 136-144 [facility] Comment on above: Order Comment: Speci men Type: BLOOD SPECIMENOrdering Facility: [facility] Address: [address] [place] [address] Performed By: #### 2 4323-8 ####[facility] LABORATORYCLIA [id number] [place] [address] [place] Urea nitrogen [Mass/Vol] 9 mg/dL Normal 7-21 [facility] Comment on above: Order Comment: Speci men Type: BLOOD SPECIMENOrdering Facility: [facility] Address: [address] [place] [address] Performed By: #### 2 4323-8 ####[facility] LABORATORYCLIA [id number] [place] [address] [place] ED NOTEon 05-28-2025 ED NOTE HNO ID: [id number] Author: NAUN PARKER RN Service: Nursing Author Type: Registered Nurse Type: ED Notes Filed: 05/28/2025 17:49 Note Text: Second call to [address] [facility] ED NOTE HNO ID: [id number] Author: NAUN PARKER RN Service: Nursing Author Type: Registered Nurse Type: ED Notes Filed: 05/28/2025 17:32 Note Text: Heads up to 2 South at 1722 Normal [facility] ED PROV NOTEon 05-28-2025 ED PROV NOTE Normal [facility] ESR Westergren method (Bld) [Velocity]on 05-28-2025 ESR (Bld) [Velocity] 37 mm/h High 0-20 [facility] Comment on above: Order Comment: Speci men Type: BLOOD SPECIMENOrdering Facility: [facility] Address: [address] [place] [address] Performed By: #### 4 537-7 ####[facility] LABCLIA [id number] [place] [address] [place] Ferritin SerPl-mCncon 2024 Ferritin [Mass/Vol] 612.8 ng/mL High 14.7-205.1 [facility] Comment on above: Order Comment: Speci men Type: BLOOD SPECIMENOrdering Facility: [facility] Address: [address] [place] [address] Performed By: #### 1 988-5, 90640-9, TSHRF, 2276-4, 2951-2 ####[facility] LABORATORYCLIA [id number] [address] STATES OF [facility] HAV IgM Ser Qlon 05-28-2025 HAV IgM Ql (S) Negative Normal Negative [facility] Comment on above: Order Comment: Speci men Type: BLOOD SPECIMENOrdering Facility: [facility] Address: [address] [place] [address] Result Comment: No e vidence of recent infection with Hepatitis A virus. Performed By: #### 3 1204-1, 60773-5, 5195-3 ####[facility] LABCLIA [id number] [address] [place] HBV core IgM Ser Qlon 2024 HBV core IgM Ql (S) Negative Normal Negative [facility] Comment on above: Order Comment: Speci men Type: BLOOD SPECIMENOrdering Facility: [facility] Address: [address] [place] [address] Result Comment: No e vidence of recent infection with Hepatitis B virus. Should recent infection be suspected, repeat testing may be considered 3-4 weeks after this draw. Performed By: #### 3 1204-1, 80211-1, 5-3 ####[facility] LABCLIA [id number] [address] [address] [place] HBV surface Ag Ser Qlon 05-06 HBV surface Ag Ql (S) Negative Normal Negative [facility] Comment on above: Order Comment: Speci [facility] Type: BLOOD SPECIMENOrdering Facility: [facility] Address: [address] [place] [address] Performed By: #### 3 1204-1, 09266-0, 3 ####[facility] LABCLIA [id number] [place] [id number] [place] HCV Ab Ser Qlon 05-28-2025 HCV Ab Ql (S) Negative Normal Negative [facility] Comment on above: Order [facility]: [facility] Type: BLOOD SPECIMENOrdering Facility: [facility] Address: [address] [place] [address] Result Comment: The result suggests no evidence of infection with Hepatitis C virus. Should recent infection be suspected, repeat testing may be considered 4-6 weeks after this draw. Performed By: #### 1 6128-1 ####[facility] LABCLIA [id number] [place] [id number] [place] HISTORY PHYSICALon HISTORY PHYSICAL Normal [facility] Hepatic function 2000 panelo n 05-28-2025 Albumin [Mass/Vol] 2.8 g/dL Low 3.9-4.9 [facility] Comment on above: Order Comment: Speci [facility] Type: BLOOD SPECIMENOrdering Facility: [facility] Address: [address] [place] [address] Performed By: #### 2 4325-3 ####[facility] LABORATORYCLIA [id number] [place] [address] [place] ALP [Catalytic activity/Vol] 246 U/L High 34-123 [facility] Comment on above: Order Comment: Speci men Type: BLOOD SPECIMENOrdering Facility: [facility] Address: [facility] [place] [address] Performed By: #### 2 4325-3 ####[facility] LABORATORYCLIA [id number] [place] [address] [place] ALT [Catalytic activity/Vol] 15 U/L Normal 7-38 [facility] Comment on above: Order Comment: Speci men Type: BLOOD SPECIMENOrdering Facility: [facility] Address: [address] [place] [address] Performed By: #### 2 4325-3 ####MCLAIN LABORATORYCLIA [id number] [place] [address] [facility] AST [Catalytic activity/Vol] 53 U/L High 13-35 [facility] Comment on above: Order Comment: Speci men Type: BLOOD SPECIMENOrdering Facility: [facility] Address: [address] [place] [address] Performed By: #### 2 4325-3 ####MCLAIN LABORATORYCLIA [id number] [place] [address] [place] Bilirubin [Mass/Vol] 6.3 mg/dL High 0.2-1.3 [facility] Comment on above: Order Comment: Speci men Type: BLOOD SPECIMENOrdering Facility: [facility] Address: [address] [place] [address] Performed By: #### 2 4325-3 ####[facility] LABORATORYCLIA [id number] [place] [id number] [place] Bilirubin.conjugated [Mass/Vol] 3.9 mg/dL High <0.3 [facility] Comment on above: Order Comment: Speci men Type: BLOOD SPECIMENOrdering Facility: [facility] Address: [address] [place] [address] Performed By: #### 2 4325-3 ####[facility] LABORATORYCLIA [id number] [place] [address] [place] Protein [Mass/Vol] 5.6 g/dL Low 6.3-8.0 [facility] Comment on above: Order Comment: Speci men Type: BLOOD SPECIMENOrdering Facility: [facility] Address: [address] [place] [address] Performed By: #### 2 4325-3 ####[facility] LABORATORYCLIA [id number] [place] [address] [place] Iron and Iron binding capaci ty panelon 05-28-2025 Iron [Mass/Vol] 40 ug/dL Low 41-186 [facility] Comment on above: Order Comment: Speci men Type: BLOOD SPECIMENOrdering Facility: [facility] Address: [address] [place] [address] Performed By: #### 1 988-5, 01491-8, [facility], 2275-4, 2951-2 ####[facility] LABORATORYCLIA [id number] [address] [place] Iron binding capacity [Mass/Vol] 128 ug/dL Low 232-386 [facility] Comment on above: Order Comment: Speci men Type: BLOOD SPECIMENOrdering Facility: [facility] Address: [address] [place] [address] Performed By: #### 1 988-5, 17228-7, [facility], 6-4, 2951-2 ####[facility] LABORATORYCLIA [id number] [address] [place] Iron/TIBC [Molar ratio] 31.3 % Normal 15.0-57.0 [facility] Comment on above: Order Comment: Speci men Type: BLOOD SPECIMENOrdering Facility: [facility] Address: [address] [place] [address] Performed By: #### 1 988-5, 95467-9, [facility], 6-4, 2951-2 ####[facility]ORATORYCLIA [id number] [address] [place] Lactate (Bld) [Moles/Vol]on 05-28-2025 Lactate [Moles/Vol] 2.4 mmol/L High 0.5-2.2 [facility] Comment on above: Order Comment: Speci men Type: BLOOD SPECIMENOrdering Facility: [facility] Address: [address] [place] [address] Performed By: #### 3 2693-4 ####[facility] LABORATORYCLIA [id number] [place] [address] [place] Osmolality SerPlon Osmolality [Osmolality] 259 mosm/kg Low 275-300 [facility] Comment on above: Order Comment: Steve lemons Type: BLOOD SPECIMENOrdering Facility: [facility] Address: [address] [place] [address] Performed By: #### 2 692-2 ####[facility] LABCLIA [id number] [place] [address] [place] PT panel Coag (PPP)on 2024 INR Coag (PPP) [Relative time] 1.3 {INR} Normal 0.9-1.3 [facility] Comment on above: Order Comment: Steve lemons Type: BLOOD SPECIMENOrdering Facility: [facility] Address: [address] [place] [address] Result Comment: Arlene min K Antagonist (VKA) Therapeutic Range: INR 2 to 3 (Target INR of 2.5)Note: For patients treated with VKA drugs, such as warfarin, the [employer] 2012 Guideline recommends [...] 2.5 to 3.5 (target INR of 3).John SHETH, et al. Chest 2012, 141:7S-47SPeter STRATTON, et al. [facility] 2017, 70: 252-289 Performed By: #### 3 4528-0 ####[facility] LABORATORYCLIA [id number] [address] [place] PT Coag (PPP) [Time] 13.4 s High 9.7-13.0 [facility] Comment on above: Order Comment: Speci men Type: BLOOD SPECIMENOrdering Facility: [facility] Address: [address] [place] [address] Performed By: #### 3 4528-0 ####[facility] LABORATORYCLIA [id number] [address] [place] SEPSIS LACTATE W/ REFLEX (IN ITIAL)on 05-28-2025 Lactate [Moles/Vol] 2.2 mmol/L High 0.5-2.0 [facility] Comment on above: Order Comment: Speci men Type: BLOOD SPECIMENOrdering Facility: [facility] Address: [address] [place] [address] Performed By: #### S LACTR ####[facility] LABORATORYCLIA [id number] [address] SEPSIS LACTATE W/ REFLEX (SE COND)on 05-28-2025 Lactate [Moles/Vol] 1.5 mmol/L Normal 0.5-2.0 [facility] Comment on above: Order Comment: Speci men Type: BLOOD SPECIMENOrdering Facility: [facility] Address: [address] [place] [address] Performed By: #### S LACT2 ####[facility] LABORATORYCLIA [id number] [address] [place] Sodium SerPl-sCncon 05-28-20 25 Sodium [Moles/Vol] 124 mmol/L Low 136-144 [facility] Comment on above: Order Comment: Speci men Type: BLOOD SPECIMENOrdering Facility: [facility] Address: [address] [place] [address] Performed By: #### 1 988-5, 47180-0, TSHRF, 2276-4, 2951-2 ####[facility] LABORATORYCLIA [id number] [address] [place] TSH W/REFLEX FT4on TSH Qn 1.160 m[IU]/L Normal 0.270-4.20 0 [facility] Comment on above: Order Comment: Speci men Type: BLOOD SPECIMENOrdering Facility: [facility] Address: [address] [place] [address] Performed By: #### 1 988-5, 25164-8, TSHRF, 2276-4, 2951-2 ####[facility] LABORATORYCLIA [id number] [place] [address] [place] Bacteria Wnd Culton 05-27-20 25 Bacteria identified Cx Nom (Wound) Abnormal [facility] Comment on above: Performed By: #### 6 462-6 ####[facility] LABCLIA [id number] [place] [address] [place] Bacteria identified Cx Nom (Wound) ORGANISM ID: 1 Many Pseudomonas aeruginosa Refer to specimen collected on 05/27/2025 at 1557 [[id number]] ORGANISM ID: 3 Rare skin mikhail GRAM STAIN: Many Gram negative bacilli Rare Gram positive cocci Rare Polymorphonuclear leukocytes Abnormal [facility] Comment on above: Performed By: #### 6 462-6 ####[facility] LABCLIA [id number] [address] [place] CNOVon 05-27-2025 CNOV Normal [facility] CNTHERAPYon 05-27-2025 CNTHERAPY Normal [facility] CNPNon 05-23-[address] [facility] Anion gap in Serum or Plasma Ordered By: Solo Calderón on 05-21-2025 Anion gap [Moles/Vol] 13 mmol/L - [facility] BUN/creatinine ratioOrdered By: Solo Calderón on 05-21-2025 Urea nitrogen/Creatinine [Mass ratio] 12.2 mg/mg - [facility] Bilirubin, totalOrdered By: Solo Calderón on 05-21-2025 Bilirubin [Mass/Vol] 5.09 mg/dL High 0.00-1.30 [facility] Carbon dioxide, total [Moles /volume] in Central venous bloodOrdered By: Solo Calderón on 05-21-2025 CO2 [Moles/Vol] 28.3 mmol/L 21.0-32.0 [facility] Chloride assayOrdered By: Anirudh tthew Constantinet on 05-21-2025 Chloride [Moles/Vol] 83 mmol/L Low 98-108 [facility] Comprehensive Metabolic Prof ilon 05-21-2025 Albumin [Mass/Vol] 3.2 g/dL Low 3.4-4.8 [facility] Comment on above: Performed By: #### L 501.4405, L100.0100, L501.1105 #### [facility] [address] [place], [address] Albumin/Globulin [Mass ratio] 1.1 {ratio} Normal 0.9-2.4 [facility] Comment on above: Performed By: #### L 501.4405, L100.0100, L501.1105 #### [facility] [address] [place], [address] ALK PHOS 284 U/L High 35-104 [facility] Comment on above: Performed By: #### L 501.4405, L100.0100, L501.1105 #### [facility] [address] [place], [address] ALT [Catalytic activity/Vol] 18 U/L Normal <=34 [facility] Comment on above: Performed By: #### L 501.4405, L100.0100, L501.1105 #### [facility] [address] [place], [address] AST [Catalytic activity/Vol] 62 U/L High <=31 [facility] Comment on above: Performed By: #### L 501.4405, L100.0100, L501.1105 #### [facility] [address] [place], [address] Bilirubin [Mass/Vol] 5.09 mg/dL High 0.00-1.30 [facility] Comment on above: Performed By: #### L 501.4405, L100.0100, L501.1105 #### [facility] [address] [place], [address] BUN/CRE 12.2 RATIO Normal 10-20 [facility] Comment on above: Performed By: #### L 501.4405, L100.0100, L501.1105 #### [facility] [address] [place], [address] Calcium [Mass/Vol] 9.4 mg/dL Normal 7.6-11.0 [facility] Comment on above: Performed By: #### L 501.4405, L100.0100, L501.1105 #### [facility] [address] [place], [address] Chloride [Moles/Vol] 83 mmol/L Low 98-108 [facility] Comment on above: Performed By: #### L 501.4405, L100.0100, L501.1105 #### [facility] [address] [place], [address] CO2 [Moles/Vol] 28.3 mmol/L Normal 21.0-32.0 [facility] Comment on above: Performed By: #### L 501.4405, L100.0100, L501.1105 #### [facility] [address] [place], [address] Creatinine [Mass/Vol] 0.72 mg/dL Normal 0.70-1.20 [facility] Comment on above: Result Comment: Icte norris present, Results may be affected. Performed By: #### L 501.4405, L100.0100, L501.1105 #### [facility] [address] [place], [address] GAP 13 Normal 5-15 [facility] Comment on above: Performed By: #### L 501.4405, L100.0100, L501.1105 #### [facility] [address] [place], [address] GFR/1.73 sq M.predicted among non-blacks MDRD (S/P/Bld) [Vol rate/Area] 88 mL/min/{1.73_m2} Normal >60 [facility] Comment on above: Result Comment: mL/m in/1.73m2 CKD-EPI Creatinine Equation (2020) Performed By: #### L 501.4405, L100.0100, L501.1105 #### [facility] [address] [place], [address] Globulin (S) [Mass/Vol] 2.9 g/dL Normal 2.2-4.2 [facility] Comment on above: Performed By: #### L 501.4405, L100.0100, L501.1105 #### [facility] [address] [place], [address] Glucose [Mass/Vol] 117 mg/dL High 70-99 [facility] Comment on above: Performed By: #### L 501.4405, L100.0100, L501.1105 #### [facility] [address] [place], [address] Potassium [Moles/Vol] 3.7 mmol/L Normal 3.3-5.1 [facility] Comment on above: Performed By: #### L 501.4405, L100.0100, L501.1105 #### [facility] [address] [place], [address] Sodium [Moles/Vol] 124 mmol/L Low 133-145 [facility] Comment on above: Performed By: #### L 501.4405, L100.0100, L501.1105 #### [facility] [address] [place], [address] T PROT 6.1 g/dL Normal 5.9-8.4 [facility] Comment on above: Performed By: #### L 501.4405, L100.0100, L501.1105 #### [facility] [address] [place], [address] Urea nitrogen [Mass/Vol] 9 mg/dL Normal 4-19 [facility] Comment on above: Performed By: #### L 501.4405, L100.0100, L501.1105 #### [facility] [address] [place], [address] Glomerular filtration rate ( GFR) estimation/1.73 sq m using serum, plasma, or whole bOrdered By: Solo Calderón on 05-21-2025 GFR/1.73 sq M.predicted among non-blacks MDRD (S/P/Bld) [Vol rate/Area] 88 mL/min/{1.73_m2} >60 [facility] Comment on above: mL/min/1.73m2 CKD-EP I Creatinine Equation (2020) Internal Medicine Office Vis iton 05-21-2025 Internal Medicine Office Visit [facility] [address] [place] [address] [place] [address] OFFICE VISIT Date of Service: 05/21/25 MR#: [id number] Acct: [id number] Name: MARY ALICE GA Rep #: [id number] : 1950 Provider: JIMMY Moahmud Age/Sex: 74/F Location[facility] Status: Signed with Addenda ADDENDUM by Cleopatra Steen on 05/21/25 at 1640 Office Procedure Documentation entered by Cleopatra Steen 05/21/25 16:40: Injections Is this a patient provided medication?: No Office Meds Prolia 60 mg/mL subcutaneous syringe Performing Provider: Khanh Rodriguez MD Performing Location: [facility] Administered by: Cleopatra Steen on 05/21/25 16:38 Dose Route Admin Location Dispensed Lot Number Expiration Date Package NDC N[employer] 60 mg subcut erickson 1 mL [id number] 11/02/27 22158-943-51 [id number] AMGEN Comments: patient tolerated Prolia well, sat [...] Reasons: Lab. 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 Normal [facility] - Chemistry and C hemistry - challengeOrdered By: Solo Calderón on 05-21-2025 AST [Catalytic activity/Vol] 62 U/L High <32 [facility] Natriuretic peptide.B prohor lynsey N-Terminal [Mass/volume] in Serum or PlasmaOrdered By: Solo Calderón on 05-21-2025 Natriuretic peptide.B prohormone N-Terminal [Mass/Vol] 613 pg/mL <900 [facility] Comment on above: Heart Failure Unlike ly: < 300 pg/mLHeart Failure Likely< 50 Years: > 450 pg/mL50-75 Years: > 900 pg/mL>75 Years: > 1800 pg/mL Potassium measurement (mass/ volume)Ordered By: Solo Calderón on 05-21-2025 Potassium (Unsp spec) [Mass/Vol] 3.7 mmol/L 3.3-5.1 [facility] Pro- Brain NATRIURETIC PEPTI Caleb 05-21-2025 Natriuretic peptide B (Bld) [Mass/Vol] 613 pg/mL Normal <=900 [facility] Comment on above: Result Comment: Hear t Failure Unlikely: < 300 pg/mL Heart Failure Likely < 50 Years: > 450 pg/mL 50-75 Years: > 900 pg/mL >75 Years: > 1800 pg/mL Performed By: #### L 501.4405, L100.0100, L501.1105 #### [facility] [address] [place], [place], [address] Serum creatinine measurement (mass/volume)Ordered By: Solo Calderón on 05-21-2025 Creatinine [Mass/Vol] 0.72 mg/dL 0.70-1.20 [facility] Comment on above: Icterus present, Res ults may be affected. Serum globulin measurementOr dered By: Solo Calderón on 05-21-2025 Globulin (S) [Mass/Vol] 2.9 g/dL 2.2-4.2 [facility] Serum glucose measurement (m ass/volume)Ordered By: Solo Calderón on 05-21-2025 Glucose [Mass/Vol] 117 mg/dL High 70-99 [facility] Serum or plasma alanine gibbs otransferase (ALT) measurementOrdered By: Solo Calderón on 05-21-2025 ALT [Catalytic activity/Vol] 18 U/L <35 [facility] Serum or plasma albumin seth urement (mass/volume)Ordered By: Solo Calderón on 05-21-2025 Albumin [Mass/Vol] 3.2 g/dL Low 3.4-4.8 [facility] Serum or plasma albumin/glob ulin mass ratioOrdered By: Solo Calderón on 05-21-2025 Albumin/Globulin [Mass ratio] 1.1 {ratio} 0.9-2.4 [facility] Serum or plasma alkaline miguel sphatase measurementOrdered By: Solo Calderón on 05-21-2025 ALP [Catalytic activity/Vol] 284 U/L High 35-104 [facility] Serum or plasma calcium seth urement (mass/volume)Ordered By: Solo Calderón on 05-21-2025 Calcium [Mass/Vol] 9.4 mg/dL 7.6-11.0 [facility] Serum or plasma urea nitroge n measurement (mass/volume)Ordered By: Solo Calderón on 05-21-2025 Urea nitrogen [Mass/Vol] 9 mg/dL 4-19 [facility] Sodium levelOrdered By: Atul Calderón on 05-21-2025 Sodium [Moles/Vol] 124 mmol/L Low 133-145 [facility] TSH DL <= 0.005 mIU/L QnOrde red By: Solo Calderón on 05-21-2025 TSH Qn 1.730 uIU/mL 0.300-4.20 0 [facility] Thyroid Stim Hormone (TSH)on 05-21-2025 TSH 1.730 uIU/mL Normal 0.300-4.20 0 [facility] Comment on above: Performed By: #### L 501.4405, L100.0100, L501.1105 #### [facility] [facility] [place], [address] Total proteinOrdered By: David Calderón on 05-21-2025 Protein [Mass/Vol] 6.1 g/dL 5.9-8.4 [facility] Bacteria Wnd Culton 05-20-20 25 Bacteria identified Cx Nom (Wound) Abnormal [facility] Comment on above: Performed By: #### 6 462-6 ####[facility] LABCLIA [id number] [place] [id number] [place] CNTHERAPYon 05-20-2025 CNTHERAPY Normal [facility] Magnetic resonance imaging r eportOrdered By: Naun Jenkins on 05-14-2025 Study report [facility] Imaging Services [address] [place], [place] [address] Spine Lumbar (Routine) MR#: [id number] Acct: [id number] Name: MARY ALICE GA Rep #: [id number] : 1950 F 74 From: Anup Jenkins MD PCP: Dr. Khanh Rodriguez MD Status: R EG CLI Study:Spine Lumbar (Routine) Date of Exam: 05/13/25 Exam# [id number] Ordering Dr: Deejay Lopez PROCEDURE: SPINE LUMBAR [...] Severe facet arthropathyand ligamentum flavum hypertrophy with grto-cl-zpbglqvq central stenosis. Mild bilateral foraminal encroachment. L5-S1: Degenerative disc disease and diffuse bulge with bilateral foraminal encroachment tiitc-gdnidsr-srwt-left. Severe facet arthropathy kkaip-jsjtxrl-awfn-left. Sacrum: Visible SI joints and sacrum appear [...] the exiting right L5 nerve. Reading Location: [facility] CC: JIMMY Dawson; Dr. Khanh Rodriguez MD ~ Liquid Fertilizer Servicer: Signed [facility] CNTHERAPYon 05-13-2025 CNTHERAPY Normal [facility] Spine Lumbar (Routine)on Spine Lumbar (Routine) [facility] Imaging Services [address] [place], [place] [address] Spine Lumbar (Routine) MR#: [id number] Acct: [id number] Name: MARY ALICE GA Rep #: [id number] : 1950 F 74 From: Naun cartagena MD PCP: Dr. Khanh Rodriguez MD Status: REG CLI Study: Spine Lumbar (Routine) Date of Exam: 05/13/25 Exam# [id number] Ordering Dr: Tracy Lopez PROCEDURE: SPINE LUMBAR [...] facet arthropathy and ligamentum flavum hypertrophy with qyhd-mg-jlhnpnsl central stenosis. Mild bilateral foraminal encroachment. L5-S1: Degenerative disc disease and diffuse bulge with bilateral foraminal encroachment rtvss-dfudgor-meux-left. Severe facet arthropathy guvgw-ggxidiq-khvl-left. Sacrum: Visible SI joints and sacrum appear [...] the exiting right L5 nerve. Reading Location: [id number] CC: JIMMY Dawson; Dr. Khanh Rodriguez MD Liquid Fertilizer Servicer: Signed Normal [facility] L/S Spine Min 4 Viewson L/S Spine Min 4 Views [facility] Imaging Services [address] [place] [address] L/S Spine Min 4 Views MR#: [id number] Acct: [id number] Name: MARY ALICE GA Rep #: [id number] : 1950 F 74 From: Reggie Lopez MD PCP: Dr. Khanh Rodriguez MD Status: DEP AMB Study: L/S Spine Min 4 Views Date of Exam: 05/08/25 Exam# [id number] Ordering Dr: Tracy Lopez PROCEDURE: L/S SPINE [...] similar to the previous study. Reading [facility] CC: JIMMY Dawson; Dr. Khanh Rodriguez MD Liquid Fertilizer Servicer: Signed Normal [facility] Orthopedic Visit Reporton Orthopedic Visit Report [facility] [address] [place] [address] OFFICE VISIT Date of Service: 05/08/25 MR#: [id number] Acct: [id number] Name: MARY ALICE GA Rep #: [id number] : 1950 Provider: JIMMY Dawson Age/Sex: 74/F Location[facility] Status: Signed Intake Vital Signs 04/25/25 13:01 [...] service provided and the decisions made by me, JIMMY Dawson 05/08/25 1306. Part of today???s visit was documented by Tawnya NEWMAN, acting as scribe. MARY ALICE GA is a 74 year old F here today for low back pain. he states that she was previously seen by a technical specialist cytogenetics in [place] Dr. Quoc SCHMITT in [place] as she goes there during the coreas. She states that she did have a kyphoplasty with him in July of 2024 for a compression fracture from T12-L2. [place] a lot better after the kyphoplasty. She [...] is being treated for the wound at [facility] in [place] and it is healing but has been [...] for long di (more content not included)... [facility] Office Vis iton 04-29-2025 Internal Medicine Office Visit [facility] [address] [place] [address] [address] [place] [address] OFFICE VISIT Date of Service: 04/29/25 MR#: [id number] Acct: [id number] Name: MARY ALICE GA Rep #: [id number] : 1950 Provider: SAMUEL paulson Age/Sex: 74/F Location: [facility] Status: Signed Intake Vital Signs 04/25/25 13:01 [...] her urine has been dark for approximately th (more content not included)... Normal [facility] 04-28-2025 CNTHERAPY [facility] 04-22-2025 CNTHERAPY [facility] 04-15-[address] [facility] CNOVon 04-08-2025 CNOV [facility] 04-08-[address] [facility] [id number] 04-01-2025 [id number] [facility]01-20[facility] 03-19-2025 CNTHERAPY [facility] 03-11-2025 CNTHERAPY Normal [facility] CNTHERAPYon 03-03-2025 CNTHERAPY Normal [facility] CNOVon 02-25-2025 CNOV Normal [facility] Absolute lymphocyte countOrd ered By: Nayan Hernandezni on 02-24-2025 Lymphocytes Auto (Unsp spec) [#/Vol] 0.74 10*3/uL Low 0.83-4.51 [facility] Absolute neutrophil countOrd ered By: Nayan Blackmon on 02-24-2025 Neutrophils (Bld) [#/Vol] 2.1 10*3/uL 2.0-7.7 [facility] Alanine Aminotransferas (SGP T)on 02-24-2025 ALT [Catalytic activity/Vol] 30 U/L Normal <=34 [facility] Comment on above: Performed By: #### L 501.4405, L100.0100, L501.1105 #### [facility] [address] [place], [place], [address] Automated lymphocyte count a s percentage of total leukocytesOrdered By: Nayan Blackmon on 02-24-2025 Lymphocytes/100 WBC Auto (Unsp spec) 21.1 % 19-41 [facility] Basophil percentageOrdered B y: Nayansudha Hernandezni on 02-24-2025 Basophils/100 WBC (Bld) 1.1 % High 0-1 [facility] Blood manual differential co mment interpretation (narrative result)Ordered By: Nayan Blackmon on 02-24-2025 Manual differential comment Emir (Bld) [Interp] SCANNED [facility] CBC W/Diff, Automatedon 02-03 PLT EST MOD DEC Normal ADEQ [facility] Comment on above: Performed By: #### L 501.4405, L100.0100, L501.1105 #### [facility] [address] [place], [address] SMEAR COMMENT SCANNED Normal [facility] Comment on above: Performed By: #### L 501.4405, L100.0100, L501.1105 #### [facility] [address] [place], [address] CNTHERAPYon 02-24-2025 CNTHERAPY Normal [facility] Eosinophil percentageOrdered By: Nayan Blackmon on 02-24-2025 Eosinophils/100 WBC (Bld) 7.1 % High 0-5 [facility] Erythrocyte distribution wid th ratioOrdered By: Nayan Blackmon on 02-24-2025 Erythrocyte distribution width (RBC) [Ratio] 13.6 % 11.6-14.6 [facility] Erythrocyte distribution wid th standard deviationOrdered By: Nayan Blackmon on 02-24-2025 Erythrocyte distribution width (RBC) [Ratio] 51.1 fl High 35.1-43.9 [facility] Glomerular filtration rate ( GFR) estimation/1.73 sq m using serum, plasma, or whole bOrdered By: Nayan Blackmon on 02-24-2025 GFR/1.73 sq M.predicted among non-blacks MDRD (S/P/Bld) [Vol rate/Area] 99 mL/min/{1.73_m2} >60 [facility] Comment on above: mL/min/1.73m2 CKD-EP I Creatinine Equation (2020) Hematocrit Auto (Bld) [Volum e fraction]Ordered By: Nayan Blackmon on 02-24-2025 Hematocrit (Bld) [Volume fraction] 29.9 % Low 37-47 [facility] Hemoglobin measurementOrdere d By: Nayan Blackmon on 02-24-2025 Hemoglobin (Bld) [Mass/Vol] 10.8 g/dL Low 12.0-15.0 [facility] Immature granulocytes/100 WB C Auto (Bld)Ordered By: Nayan Blackmon on 02-24-2025 Immature granulocytes/100 WBC (Bld) 0.300 % 0.0-0.9 [facility] Comment on above: IG% - Immature Granu locytes (promyelocytes, myelocytes and metamyelocytes) > 1% indicates that a LEFT SHIFT is Present. MCV (mean corpuscular volume ) determinationOrdered By: Nayan Blackmon on 02-24-2025 MCV (RBC) [Entitic vol] 102.0 fL High 81-99 [facility] Mean corpuscular hemoglobin (MCH) determinationOrdered By: Nayan Blackmon on 02-24-2025 MCH (RBC) [Entitic mass] 36.9 pg High 27.0-32.0 [facility] Mean corpuscular hemoglobin concentration (MCHC) determinationOrdered By: Nayan Blackmon on 02-24-2025 MCHC (RBC) [Mass/Vol] 36.1 g/dL High 32-36 [facility] Mean platelet volume determi nationOrdered By: Nayan Blackmon on 02-24-2025 Platelet mean volume (Bld) [Entitic vol] 9.8 fL 6.2-12.0 [facility] Monocyte percentageOrdered B y: Nayan Blackmon on 02-24-2025 Monocytes/100 WBC (Bld) 11.7 % High 0-10 [facility] Neutrophil percentageOrdered By: Nayan Blackmon on 02-24-2025 Neutrophils/100 WBC (Bld) 58.7 % 47-70 [facility] Nucleated red blood cell per centageOrdered By: Nayan Blackmon on 02-24-2025 Nucleated RBC/100 WBC (Bld) [Ratio] 0 % 0-5 [facility] Platelet countOrdered By: Ra rodney Blackmon on 02-24-2025 Platelets (Bld) [#/Vol] 89 10*3/uL Low 150-450 [facility] Platelet estimateOrdered By: Nayan Blackmon on 02-24-2025 Platelets LM Ql (Bld) MOD DEC ADEQ [facility] RBC Auto (Bld) [#/Vol]Ordere d By: Nayan Blackmon on 02-24-2025 RBC (Bld) [#/Vol] 2.93 10*6/uL Low 4.2-5.4 [facility] Serum Creatinine AND GFRon 0 02-24-2025 Creatinine [Mass/Vol] 0.50 mg/dL Low 0.70-1.20 [facility] Comment on above: Performed By: #### L 501.4405, L100.0100, L501.1105 #### [facility] [facility] [place], [address] GFR/1.73 sq M.predicted among non-blacks MDRD (S/P/Bld) [Vol rate/Area] 99 mL/min/{1.73_m2} Normal >60 [facility] Comment on above: Result Comment: mL/m in/1.73m2 CKD-EPI Creatinine Equation (2020) Performed By: #### L 501.4405, L100.0100, L501.1105 #### [facility] [address] [place], [address] Serum creatinine measurement (mass/volume)Ordered By: Nayan Blackmon on 02-24-2025 Creatinine [Mass/Vol] 0.50 mg/dL Low 0.70-1.20 [facility] Serum or plasma alanine gibbs otransferase (ALT) measurementOrdered By: Nayan Blackmon on 02-24-2025 ALT [Catalytic activity/Vol] 30 U/L <35 [facility] White blood cell (WBC) count Ordered By: Nayan Blackmon on 02-24-2025 WBC (Bld) [#/Vol] 3.5 10*3/uL Low 4.4-11.0 [facility] NURSING PROGon 02-18-[address] [facility] CNPNon 02-17-[address] [facility] CNTHERAPYon 02-17-2025 CNTHERAPY Normal [facility] CNOVon 02-11-[address] [facility] CNTHERAPYon 02-10-2025 CNTHERAPY Normal [facility] CNTHERAPYon 02-03-[address] [facility] Bacteria Wnd Culton 01-29-20 25 Bacteria identified Cx Nom (Wound) Abnormal [facility] Comment on above: Performed By: #### 6 462-6 ####[facility] LABCLIA [id number] [address] OF [facility] CNTHERAPYon 01-28-2025 CNTHERAPY Normal [facility] Absolute lymphocyte countOrd ered By: Nabeel Patel on 01-23-2025 Lymphocytes Auto (Unsp spec) [#/Vol] 1.69 10*3/uL 0.83-4.51 [facility] Absolute neutrophil countOrd ered By: Manstresa Patel on 01-23-2025 Neutrophils (Bld) [#/Vol] 2.6 10*3/uL 2.0-7.7 [facility] Anion gap in Serum or Plasma Ordered By: Nabeel Patel on 01-23-2025 Anion gap [Moles/Vol] 16 mmol/L High 5-15 [facility] Automated lymphocyte count a s percentage of total leukocytesOrdered By: Nabeel Patel on 01-23-2025 Lymphocytes/100 WBC Auto (Unsp spec) 33.3 % - [facility] BUN/creatinine ratioOrdered By: [facility] Amanda on 01-23-2025 Urea nitrogen/Creatinine [Mass ratio] 16.4 mg/mg 10- [facility] Basophil percentageOrdered B y: Nabeel Patel on 01-23-2025 Basophils/100 WBC (Bld) 0.8 % 0-1 [facility] Bilirubin, totalOrdered By: Nabeel Patel on 01-23-2025 Bilirubin [Mass/Vol] 2.33 mg/dL High 0.00-1.30 [facility] CBC W/Diff, Automatedon 01-03 Absolute Lymph 1.69 X10 3/uL Normal 0.83-4.51 [facility] Comment on above: Performed By: #### L 500.4050, L100.0100 #### [facility] [address] [place], [address] Absolute Neut 2.6 X10 3/uL Normal 2.0-7.7 [facility] Comment on above: Performed By: #### L 500.4050, L100.0100 #### [facility] [address] [place], [address] Basophils/100 WBC (Bld) 0.8 % Normal 0-1 [facility] Comment on above: Performed By: #### L 500.4050, L100.0100 #### [facility] [address] [place], [address] Eosinophils/100 WBC (Bld) 0.6 % Normal 0-5 [facility] Comment on above: Performed By: #### L 500.4050, L100.0100 #### [facility] [address] [place], [address] Erythrocyte distribution width (RBC) [Ratio] 13.7 % Normal 11.6-14.6 [facility] Comment on above: Performed By: #### L 500.4050, L100.0100 #### [facility] [address] [place], [address] Hematocrit (Bld) [Volume fraction] 35.4 % Low 37-47 [facility] Comment on above: Performed By: #### L 500.4050, L100.0100 #### [facility] [address] [place], [address] Hemoglobin (Bld) [Mass/Vol] 12.8 g/dL Normal 12.0-15.0 [facility] Comment on above: Performed By: #### L 500.4050, L100.0100 #### [facility] [address] [place], [address] IG% 0.400 Normal 0.0-0.9 [facility] Comment on above: Result Comment: IG% - Immature Granulocytes (promyelocytes, myelocytes and metamyelocytes) > 1% indicates that a LEFT SHIFT is Present. Performed By: #### L 500.4050, L100.0100 #### [facility] [address] [place], [address] Lymphocytes/100 WBC (Bld) 33.3 % Normal 19-41 [facility] Comment on above: Performed By: #### L 500.4050, L100.0100 #### [facility] [address] [place], [address] MCH (RBC) [Entitic mass] 36.1 pg High 27.0-32.0 [facility] Comment on above: Performed By: #### L 500.4050, L100.0100 #### [facility] [address] [place], [address] MCHC (RBC) [Mass/Vol] 36.2 g/dL High 32-36 [facility] Comment on above: Performed By: #### L 500.4050, L100.0100 #### [facility] [address] [place], [address] MCV (RBC) [Entitic vol] 99.7 fL High 81-99 [facility] Comment on above: Performed By: #### L 500.4050, L100.0100 #### [facility] [address] [place], [address] Monocytes/100 WBC (Bld) 13.2 % High 0-10 [facility] Comment on above: Performed By: #### L 500.4050, L100.0100 #### [facility] [address] [place], [address] Neutrophils/100 WBC (Bld) 51.7 % Normal 47-70 [facility] Comment on above: Performed By: #### L 500.4050, L100.0100 #### [facility] [address] [place], [address] Nucleated RBC (Bld) [#/Vol] 0 10*3/uL Normal 0-5 [facility] Comment on above: Performed By: #### L 500.4050, L100.0100 #### [facility] [address] [place], [address] Platelet mean volume (Bld) [Entitic vol] 8.4 fL Normal 6.2-12.0 [facility] Comment on above: Performed By: #### L 500.4050, L100.0100 #### [facility] [address] [place], [address] Platelets (Bld) [#/Vol] 122 10*3/uL Low 150-450 [facility] Comment on above: Performed By: #### L 500.4050, L100.0100 #### [facility] [address] [place], [address] RBC (Bld) [#/Vol] 3.55 10*6/uL Low 4.2-5.4 [facility] Comment on above: Performed By: #### L 500.4050, L100.0100 #### [facility] [address] [place], [address] RDW SD 49.6 fl High 35.1-43.9 [facility] Comment on above: Performed By: #### L 500.4050, L100.0100 #### [facility] [address] [place], [address] WBC (Bld) [#/Vol] 5.1 10*3/uL Normal 4.4-11.0 [facility] Comment on above: Performed By: #### L 500.4050, L100.0100 #### [facility] [address] [place], [address] Carbon dioxide, total [Moles /volume] in Central venous bloodOrdered By: Nabeel Patel on 01-23-2025 CO2 [Moles/Vol] 22.9 mmol/L 21.0-32.0 [facility] Chloride assayOrdered By: Anirudh Patel on 01-23-2025 Chloride [Moles/Vol] 92 mmol/L Low 98-108 [facility] Comprehensive Metabolic Prof ilon 01-23-2025 Albumin [Mass/Vol] 3.8 g/dL Normal 3.4-4.8 [facility] Comment on above: Performed By: #### L 501.4405, L100.0100, L501.1105 #### [facility] [address] [place], [address] Albumin/Globulin [Mass ratio] 1.1 {ratio} Normal 0.9-2.4 [facility] Comment on above: Performed By: #### L 501.4405, L100.0100, L501.1105 #### [facility] [address] [place], [address] ALK PHOS 251 U/L High 35-104 [facility] Comment on above: Performed By: #### L 501.4405, L100.0100, L501.1105 #### [facility] [address] [place], [address] ALT [Catalytic activity/Vol] 27 U/L Normal <=34 [facility] Comment on above: Performed By: #### L 501.4405, L100.0100, L501.1105 #### [facility] [address] [place], [address] AST [Catalytic activity/Vol] 89 U/L High <=31 [facility] Comment on above: Performed By: #### L 501.4405, L100.0100, L501.1105 #### [facility] [address] [place], [address] Bilirubin [Mass/Vol] 2.33 mg/dL High 0.00-1.30 [facility] Comment on above: Performed By: #### L 501.4405, L100.0100, L501.1105 #### [facility] [address] [place], [address] BUN/CRE 16.4 RATIO Normal 10-20 [facility] Comment on above: Performed By: #### L 501.4405, L100.0100, L501.1105 #### [facility] [address] [place], [address] Calcium [Mass/Vol] 9.7 mg/dL Normal 7.6-11.0 [facility] Comment on above: Performed By: #### L 501.4405, L100.0100, L501.1105 #### [facility] [address] [place], [address] Chloride [Moles/Vol] 92 mmol/L Low 98-108 [facility] Comment on above: Performed By: #### L 501.4405, L100.0100, L501.1105 #### [facility] [address] [place], [address] CO2 [Moles/Vol] 22.9 mmol/L Normal 21.0-32.0 [facility] Comment on above: Performed By: #### L 501.4405, L100.0100, L501.1105 #### [facility] [address] [place], [address] Creatinine [Mass/Vol] 0.66 mg/dL Low 0.70-1.20 [facility] Comment on above: Performed By: #### L 501.4405, L100.0100, L501.1105 #### [facility] [address] [place], [address] ECRCL 54.08 ml/min Normal 50-250 [facility] Comment on above: Performed By: #### L 501.4405, L100.0100, L501.1105 #### [facility] [address] [place], [address] GAP 16 High 5-15 [facility] Comment on above: Performed By: #### L 501.4405, L100.0100, L501.1105 #### [facility] [address] [place], [address] GFR/1.73 sq M.predicted among non-blacks MDRD (S/P/Bld) [Vol rate/Area] 92 mL/min/{1.73_m2} Normal >60 [facility] Comment on above: Result Comment: mL/m in/1.73m2 CKD-EPI Creatinine Equation (2020) Performed By: #### L 501.4405, L100.0100, L501.1105 #### [facility] [address] [place], [address] Globulin (S) [Mass/Vol] 3.6 g/dL Normal 2.2-4.2 [facility] Comment on above: Performed By: #### L 501.4405, L100.0100, L501.1105 #### [facility] [address] [place], [address] Glucose [Mass/Vol] 129 mg/dL High 70-99 [facility] Comment on above: Performed By: #### L 501.4405, L100.0100, L501.1105 #### [facility] [address] [place], [address] Potassium [Moles/Vol] 3.6 mmol/L Normal 3.3-5.1 [facility] Comment on above: Performed By: #### L 501.4405, L100.0100, L501.1105 #### [facility] [address] [place], [address] Sodium [Moles/Vol] 130 mmol/L Low 133-145 [facility] Comment on above: Performed By: #### L 501.4405, L100.0100, L501.1105 #### [facility] [address] [place], [address] T PROT 7.4 g/dL Normal 5.9-8.4 [facility] Comment on above: Performed By: #### L 501.4405, L100.0100, L501.1105 #### [facility] [address] [place], [address] Urea nitrogen [Mass/Vol] 11 mg/dL Normal 4-19 [facility] Comment on above: Performed By: #### L 501.4405, L100.0100, L501.1105 #### [facility] [address] [place], [address] Eosinophil percentageOrdered By: Nabeel Patel on 01-23-2025 Eosinophils/100 WBC (Bld) 0.6 % 0-5 [facility] Erythrocyte distribution wid th ratioOrdered By: Nabeel Patel on 01-23-2025 Erythrocyte distribution width (RBC) [Ratio] 13.7 % 11.6-14.6 [facility] Erythrocyte distribution wid th standard deviationOrdered By: Nabeel Patel on 01-23-2025 Erythrocyte distribution width (RBC) [Ratio] 49.6 fl High 35.1-43.9 [facility] Glomerular filtration rate ( GFR) estimation/1.73 sq m using serum, plasma, or whole bOrdered By: Nabeel Patel on 01-23-2025 GFR/1.73 sq M.predicted among non-blacks MDRD (S/P/Bld) [Vol rate/Area] 92 mL/min/{1.73_m2} >60 [facility] Comment on above: mL/min/1.73m2 CKD-EP I Creatinine Equation (2020) Hematocrit Auto (Bld) [Volum e fraction]Ordered By: [facility] on 01-23-2025 Hematocrit (Bld) [Volume fraction] 35.4 % Low 37-47 [facility] Hemoglobin measurementOrdere d By: Nabeel Patel on 01-23-2025 Hemoglobin (Bld) [Mass/Vol] 12.8 g/dL 12.0-15.0 [facility] Immature granulocytes/100 WB C Auto (Bld)Ordered By: Nabeel Patel on 01-23-2025 Immature granulocytes/100 WBC (Bld) 0.400 % 0.0-0.9 [facility] Comment on above: IG% - Immature Granu locytes (promyelocytes, myelocytes and metamyelocytes) > 1% indicates that a LEFT SHIFT is Present. Laboratory - Chemistry and C hemistry - challengeOrdered By: Nabeel Patel on 01-23-2025 AST [Catalytic activity/Vol] 89 U/L High <32 [facility] MCV (mean corpuscular volume ) determinationOrdered By: Nabeel Patel on 01-23-2025 MCV (RBC) [Entitic vol] 99.7 fL High 81-99 [facility] Mean corpuscular hemoglobin (MCH) determinationOrdered By: Nabeel Patel on 01-23-2025 MCH (RBC) [Entitic mass] 36.1 pg High 27.0-32.0 [facility] Mean corpuscular hemoglobin concentration (MCHC) determinationOrdered By: Nabeel Patel on 01-23-2025 MCHC (RBC) [Mass/Vol] 36.2 g/dL High 32-36 [facility] Mean platelet volume determi nationOrdered By: Nabeel Patel on 01-23-2025 Platelet mean volume (Bld) [Entitic vol] 8.4 fL 6.2-12.0 [facility] Monocyte percentageOrdered B y: Nabeel Patel on 01-23-2025 Monocytes/100 WBC (Bld) 13.2 % High 0-10 [facility] Neutrophil percentageOrdered By: Nabeel Patel on 01-23-2025 Neutrophils/100 WBC (Bld) 51.7 % 47-70 [facility] Nucleated red blood cell per centageOrdered By: Nabeel Patel on 01-23-2025 Nucleated RBC/100 WBC (Bld) [Ratio] 0 % 0-5 [facility] Oncology Visit Reporton 01-03 Oncology Visit Report [facility] [address] [place] [address] OFFICE VISIT Date of Service: 01/23/25 1311 MR#: [id number] Acct: [id number] Name: MARY ALICE GA Rep #: [id number] : 1950 From: Nabeel Patel MD Age/Sex: 74/F [place] [facility] [place]: Signed HPI Subjective Date of Service [...] RESULT Block A E-Cad (ECH-6) positive CK8 (47ulpnJ56) positive Calponin-1 (JW839Z) negative CK5-6 (D5 1684) negative P40 (BC28) negative P53 (DO-7) negative (null pattern) Ki-67 (30-9) positive, low ( 15%) MORPHOMETRIC ANALYSIS ER (clone 6F11) >95%, strong intensity MT (clone 16/1E2) >95%, strong intensity Her-2Neu (clone CB11) 1-2+ Block B E-Cad (ECH-6) positive CK8 (17boavQ11) positive Calponin-1 (JS153M) negative * CK5-6 (D5 1684) negative * P40 (BC28) negative * P53 (DO-7) positive, rare cells (wild type pattern) Ki-67 (30-9) positive * Positive in the area of DCIS. MORPHOMETRIC ANALYSIS ER (clone 6F11) >95%, strong intensity MT (clone 16/1E2) >95%, strong intensity Her-2Neu (clone [...] axillary sen (more content not included)... Normal [facility] Platelet countOrdered By: Anirudh Patel on 01-23-2025 Platelets (Bld) [#/Vol] 122 10*3/uL Low 150-450 [facility] Potassium measurement (mass/ volume)Ordered By: Nabeel Patel on 01-23-2025 Potassium (Unsp spec) [Mass/Vol] 3.6 mmol/L 3.3-5.1 [facility] RBC Auto (Bld) [#/Vol]Ordere d By: Nabeel Patel on 01-23-2025 RBC (Bld) [#/Vol] 3.55 10*6/uL Low 4.2-5.4 [facility] Serum creatinine measurement (mass/volume)Ordered By: Nabeel Patel on 01-23-2025 Creatinine [Mass/Vol] 0.66 mg/dL Low 0.70-1.20 [facility] Serum globulin measurementOr dered By: Nabeel Patel on 01-23-2025 Globulin (S) [Mass/Vol] 3.6 g/dL 2.2-4.2 [facility] Serum glucose measurement (m ass/volume)Ordered By: Nabeel Patel on 01-23-2025 Glucose [Mass/Vol] 129 mg/dL High 70-99 [facility] Serum or plasma alanine gibbs otransferase (ALT) measurementOrdered By: Nabeel Patel on 01-23-2025 ALT [Catalytic activity/Vol] 27 U/L <35 [facility] Serum or plasma albumin seth urement (mass/volume)Ordered By: Nabeel Patel on 01-23-2025 Albumin [Mass/Vol] 3.8 g/dL 3.4-4.8 [facility] Serum or plasma albumin/glob ulin mass ratioOrdered By: Nabeel Patel on 01-23-2025 Albumin/Globulin [Mass ratio] 1.1 {ratio} 0.9-2.4 [facility] Serum or plasma alkaline miguel sphatase measurementOrdered By: Nabeel Patel on 01-23-2025 ALP [Catalytic activity/Vol] 251 U/L High 35-104 [facility] Serum or plasma calcium seth urement (mass/volume)Ordered By: Nabeel Arguetaalicia on 01-23-2025 Calcium [Mass/Vol] 9.7 mg/dL 7.6-11.0 [facility] Serum or plasma urea nitroge n measurement (mass/volume)Ordered By: Nabeel Arguetaalicia on 01-23-2025 Urea nitrogen [Mass/Vol] 11 mg/dL 4-19 [facility] Sodium levelOrdered By: Damari Arguetaalicia on 01-23-2025 Sodium [Moles/Vol] 130 mmol/L Low 133-145 [facility] Total proteinOrdered By: Uriel Arguetachrissie on 01-23-2025 Protein [Mass/Vol] 7.4 g/dL 5.9-8.4 [facility] White blood cell (WBC) count Ordered By: Nabeel Arguetaalicia on 01-23-2025 WBC (Bld) [#/Vol] 5.1 10*3/uL 4.4-11.0 [facility] Internal Medicine Office Vis iton 01-22-2025 Internal Medicine Office Visit [facility] [address] [place] [address] [place] [address] OFFICE VISIT Date of Service: 01/22/25 MR#: [id number] Acct: [id number] Name: MARY ALICE GA Rep #: [id number] : 1950 Provider: JIMMY Mohamud Age/Sex: 74/F [facility] [facility] Status: Signed Intake Vital Signs 06/17/24 14:11 01/22/25 11:52 Height 5 ft 2 in 5 ft 2 in Weight: 144 lb BMI 26.3 BP 110/60 Blood Pressure Location Rt brachial Position Sitting Respiration 16 Pulse 64 Pulse Source Monitor Temp 97.2 F L Temp Source Temporal Pulse Oximetry (%) 95 Oxygen Delivery Method room air Intake Visit Reasons: ACUTE-MED 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 Back is in [place] and will not fill out of states. Pt states that she took some of her husbands oxycodone and that was the first time that she was able to sleep due to leg pain. She states her back pain is manageable. RLL is managed by wound center [facility] in [place] and has been ongoing since last year, compression stockings were left on too long and caused a wound. Pt states that she see's them percy and next appointment is 01/28/25. [facility] Medical History Screening for breast cancer Thrombocytopenia [...] a back specialist while she is in [place] due to multi-level kyphoplasty due to compression [...] wound on her (more content not included)... Normal [facility] CNTHERAPYon 01-20-[address] [facility] [facility] [id number] 01-07-2025 [id number] Normal [facility] CNTHERAPYon 01-06-2025 CNTHERAPY Normal [facility] CNTHERAPYon 06-26-2024 CNTHERAPY Normal [facility] CNTHERAPYon 06-18-2024 CNTHERAPY Normal [facility] CBC-Complete Blood Cnt No Di ffon 06-17-2024 Erythrocyte distribution width (RBC) [Ratio] 15.2 % High 11.6-14.6 [facility] Comment on above: Performed By: #### L 500.4050, L100.0500 #### [facility] [address] [place], [address] Hematocrit (Bld) [Volume fraction] 35.7 % Low 37-47 [facility] Comment on above: Performed By: #### L 500.4050, L100.0500 #### [facility] [address] [place], [address] Hemoglobin (Bld) [Mass/Vol] 11.7 g/dL Low 12.0-15.0 [facility] Comment on above: Performed By: #### L 500.4050, L100.0500 #### [facility] [address] [place], [address] MCH (RBC) [Entitic mass] 28.3 pg Normal 27.0-32.0 [facility] Comment on above: Performed By: #### L 500.4050, L100.0500 #### [facility] [address] [place], [address] MCHC (RBC) [Mass/Vol] 32.8 g/dL Normal 32-36 [facility] Comment on above: Performed By: #### L 500.4050, L100.0500 #### [facility] [address] [place], [address] MCV (RBC) [Entitic vol] 86.2 fL Normal 81-99 [facility] Comment on above: Performed By: #### L 500.4050, L100.0500 #### [facility] [address] [place], [address] Platelet mean volume (Bld) [Entitic vol] 9.2 fL Normal 6.2-12.0 [facility] Comment on above: Performed By: #### L 500.4050, L100.0500 #### [facility] [address] [place], [address] Platelets (Bld) [#/Vol] 200 10*3/uL Normal 150-450 [facility] Comment on above: Performed By: #### L 500.4050, L100.0500 #### [facility] [address] [place], [address] RBC (Bld) [#/Vol] 4.14 10*6/uL Low 4.2-5.4 [facility] Comment on above: Performed By: #### L 500.4050, L100.0500 #### [facility] [address] [place], [address] RDW SD 47.8 fl High 35.1-43.9 [facility] Comment on above: Performed By: #### L 500.4050, L100.0500 #### [facility] [address] [place], [address] WBC (Bld) [#/Vol] 5.1 10*3/uL Normal 4.4-11.0 [facility] Comment on above: Performed By: #### L 500.4050, L100.0500 #### [facility] [address] [place], [address] Comprehensive Metabolic Prof ilon 06-17-2024 Albumin [Mass/Vol] 3.5 g/dL Normal 3.2-5.0 [facility] Comment on above: Performed By: #### L 500.4050, L100.0500 #### [facility] [address] [place], [address] Albumin/Globulin [Mass ratio] 0.8 {ratio} Low 0.9-2.4 [facility] Comment on above: Performed By: #### L 500.4050, L100.0500 #### [facility] [address] [place], [address] ALK P 235 U/L High 45-117 [facility] Comment on above: Performed By: #### L 500.4050, L100.0500 #### [facility] [address] [place], [address] ALT [Catalytic activity/Vol] 19 U/L Normal 13-56 [facility] Comment on above: Performed By: #### L 500.4050, L100.0500 #### [facility] [address] [place], [address] AST [Catalytic activity/Vol] 22 U/L Normal 15-37 [facility] Comment on above: Performed By: #### L 500.4050, L100.0500 #### [facility] [address] [place], [address] Bilirubin [Mass/Vol] 1.30 mg/dL High 0.20-1.00 [facility] Comment on above: Result Comment: For patients on eltrombopag therapy, use of Dimension [place] TBIL is not recommended. Performed By: #### L 500.4050, L100.0500 #### [facility] [address] [place], [address] BUN/CRE 21.7 RATIO High 10-20 [facility] Comment on above: Performed By: #### L 500.4050, L100.0500 #### [facility] [address] [place], [address] CA,Total 9.8 mg/dL Normal 8.5-10.1 [facility] Comment on above: Performed By: #### L 500.4050, L100.0500 #### [facility] [address] [place], [address] Chloride [Moles/Vol] 98 mmol/L Normal 98-107 [facility] Comment on above: Performed By: #### L 500.4050, L100.0500 #### [facility] [address] [place], [address] CO2 [Moles/Vol] 28.0 mmol/L Normal 21.0-32.0 [facility] Comment on above: Performed By: #### L 500.4050, L100.0500 #### [facility] [address] [place], [address] Creatinine [Mass/Vol] 0.88 mg/dL Normal 0.55-1.02 [facility] Comment on above: Result Comment: The validity of the calculated GFR GFRAA in patients over 70 years has not been determined. Clinical correlation is essential. Performed By: #### L 500.4050, L100.0500 #### [facility] [address] [place], [address] ECRCL 52.58 ml/min Normal [facility] Comment on above: Performed By: #### L 500.4050, L100.0500 #### [facility] [address] [place], [address] EST GFR - AA 82 mL/min Normal >60 [facility] Comment on above: Result Comment: Afri can Bangladeshi GFR Calc Performed By: #### L 500.4050, L100.0500 #### [facility] [address] [place], [address] GAP 7 Normal 5-15 [facility] Comment on above: Performed By: #### L 500.4050, L100.0500 #### [facility] [address] [place], [address] GFR/1.73 sq M.predicted among non-blacks MDRD (S/P/Bld) [Vol rate/Area] 67 mL/min/{1.73_m2} Normal >60 [facility] Comment on above: Result Comment: Non- GFR Calc Performed By: #### L 500.4050, L100.0500 #### [facility] [address] [place], [address] Globulin (S) [Mass/Vol] 4.3 g/dL High 2.2-4.2 [facility] Comment on above: Performed By: #### L 500.4050, L100.0500 #### [facility] [address] [place], [address] Glucose [Mass/Vol] 74 mg/dL Normal 74-106 [facility] Comment on above: Performed By: #### L 500.4050, L100.0500 #### [facility] [address] [place], [address] Potassium [Moles/Vol] 4.2 mmol/L Normal 3.5-5.1 [facility] Comment on above: Performed By: #### L 500.4050, L100.0500 #### [facility] [address] [place], [address] Sodium [Moles/Vol] 133 mmol/L Low 136-145 [facility] Comment on above: Performed By: #### L 500.4050, L100.0500 #### [facility] [address] [place], [address] T PROT 7.8 g/dL Normal 6.4-8.2 [facility] Comment on above: Performed By: #### L 500.4050, L100.0500 #### [facility] [address] [place], [address] Urea nitrogen [Mass/Vol] 19 mg/dL High 7-18 [facility] Comment on above: Performed By: #### L 500.4050, L100.0500 #### [facility] [address] [place], [address] Oncology Visit Reporton 06-04 Oncology Visit Report [facility] [place] [facility] [address] [place] [address] OFFICE VISIT Date of Service: 06/17/24 1410 MR#: [id number] Acct: [id number] Name: MARY ALICE GA Rep #: [id number] : 1950 From: Cesia Carr Age/Sex: 73/F Location[facility] Status: Signed HPI Subjective Date of Service [...] RESULT Block A E-Cad (ECH-6) positive CK8 (59hbvnT98) positive Calponin-1 (IU330R) negative CK5-6 (D5 1684) negative P40 (BC28) negative P53 (DO-7) negative (null pattern) Ki-67 (30-9) positive, low ( 15%) MORPHOMETRIC ANALYSIS ER (clone 6F11) >95%, strong intensity MT (clone 16/1E2) >95%, strong intensity Her-2Neu (clone CB11) 1-2+ Block B E-Cad (ECH-6) positive CK8 (20crlwU77) positive Calponin-1 (IF071P) negative * CK5-6 (D5 1684) negative * P40 (BC28) negative * P53 (DO-7) positive, rare cells (wild type pattern) Ki-67 (30-9) positive * Positive in the area of DCIS. MORPHOMETRIC ANALYSIS ER (clone 6F11) >95%, strong intensity MT (clone 16/1E2) >95%, strong intensity Her-2Neu (clone [...] Left axillary (more content not included)... Normal [facility] SCREEN MAMM (CAD) W/ZANA UNI Grant 06-14-2024 SCREEN MAMM (CAD) W/ZANA UNI R [facility] Imaging Services [address] [place] [address] SCREEN MAMM (CAD) W/ZANA UNI R MR#: [id number] Acct: [id number] Name: MARY ALICE GA Rep #: [id number] : 1950 F 73 From: Nahum nieves MD PCP: Dr. Khanh Rodriguez MD Status: [facility] Study: SCREEN MAMM (CAD) W/ZANA UNI R Date of Exam: Exam# [id number] Ordering Dr: Cesia Perry NP ELECTRON MICROPROBE OPERATOR -C [id number] MAMMOGRAPHY - UNILATERAL SCREENING: RIGHT BREAST REASON [...] delay biopsy of a clinically suspicious abnormality. [id number] Electronically Signed: Nahum Kelley MD at 9:20 EDT , CC: SAMUEL Perry; Dr. Khanh Rodriguez MD Liquid Fertilizer Servicer: Signed Normal [facility] CNOVon 06-12-2024 OV Office Visit (SPNMED ) -- MARY ALICE GA ([id number]) 1950 F Date Time Provider Department 06/12/24 10:20 AM MONSE MERLOS SPNMED During your visit today, we recorded the following information about you: Pulse Blood pressure Weight Height 52/minute 126/63 69 kg 1.575 m Monse Merlos PA-C 06/17/2024 7:38 PM Addendum M[facility]los [facility] [address] [address] 06/12/2024 ASSESSMENT AND PLAN: Assessment : Encounter [...] She had some plain radiographs done at [facility], but did not bring those here for review today. SUMMARY/PLAN: She will try to provide her outside lumbar plain radiographs for my future review She will start supervised PT as recommended here and then if she travels down to [place] as his her normal winter routine, she would pickling grader the PT there and finish out her [...] today with this patient visit. This includes qvnr-vp-ijtv time, review of chart records regarding conservative care history, spine-pertinent imaging, and communication/care coordination with referring provider, problem-specific history-taking and counseling/education regarding treatment options. cc: Marisela Mccarty [address] [address] Results of consultation to be transmitted via electronic medical record for those providers who practice within [facility] or with access to [place] [employer] via MD Connect, or via letter. ########################## [...] 300 mg (more content not included)... Normal [facility] CNTHERAPYon 06-12-2024 CNTHERAPY Normal [facility] Partial Thromboplast Timeon 05-31-2024 aPTT Coag (Bld) [Time] 38.4 s High 24.1-36.2 [facility] Comment on above: Performed By: #### L 300.3900, L300.4310, L100.1900 #### [facility] [address] [place], [address] Platelet Counton 05-31-2024 Platelets (Bld) [#/Vol] 167 10*3/uL Normal 150-450 [facility] Comment on above: Performed By: #### L 300.3900, L300.4310, L100.1900 #### [facility] [address] [place], [address] Procedure Reporton Procedure Report [facility] Medical Records Department [address] [place] [address] Procedure Report 05/31/24 1052 MR#: [id number] Acct: [id number] Name: MARY ALICE AG Rep #: [id number] : 1950 73 From: Yamile Glez ELECTRON MICROPROBE OPERATOR-C PCP: Dr. Khanh Rodriguez MD Status:REG CLI [...] independent monitoring. Procedures Radiology Radiology US Procedures: 83101 Liver Biopsy Multi Select Codes Radiology Radiology CT Procedures: 43285-08 CT guidance parenchymal tissue 05/31/24 1055 Cosigner Signature (if applicable): CC: SAMUEL Glez; Dr. Khanh Rodriguez MD; Johny Davila, Signed Normal [facility] Prothrombin Time w/INRon INR Coag (PPP) [Relative time] 1.3 {INR} Normal [facility] Comment on above: Performed By: #### L 300.3900, L300.4310, L100.1900 #### [facility] [address] [place], [place], [address] PT Coag (PPP) [Time] 15.8 s High 11.7-14.9 [facility] Comment on above: Performed By: #### L 300.3900, L300.4310, L100.1900 #### [facility] [address] [place], [place], [address] Trichrome (control)on 2023 Trichrome (control) ------ Patient Age/Sex Location Account Attending Physician MARY ALICE GA 73/F CT [id number] Johny Davila DO Specimen: [id number] Received: 05/31/24 Status: KATHRYN Estrella Num: [id number] Spec Type: SHABANA Louis Dr: DO TITA Perez OPERATION: CT guided liver biopsy PRE-OP DIAGNOSIS: Cirrhosis TISSUE SUBMITTED: 18 gauge x 3 biopsy MICROSCOPIC DIAGNOSIS Liver, needle core biopsy: Cirrhosis. Chronic hepatitis, Grade 3 (modified Knodell scoring system). See microscopic description and comment. AM. 06/03/2024 MICROSCOPIC DESCRIPTION Trichrome and reticulin stains [...] submitted in one cassette. . 05/31/2024 TC:3 CPT:48920,95473k4 Patient Age/Sex Location Account Attending Physician MARY ALICE GA 73/ CT [id number] Johny Davila DO Signed (signature on file) Dr. Ronal Kenyon DO 06/03/24 1216 Normal [facility] Comment on above: Performed By: #### L 501.4405, L100.0100, L501.1105 #### [facility] [place], [place], [address] CNTHERAPYon 04-30-2024 CNTHERAPY OT/PT/Speech Visit ( PTWS) -- MARY ALICE GA Chucky ([id number]) 1950 F Date Time Provider Department 04/30/24 8:15 AM LISETH ALANIS PTWS Date Time Provider Department Center 04/30/2024 8:15 AM [id number] ALANIS [place] Reason for Visit: PT Discharge [...] mg by mouth three times daily. Normal [facility] CNOVon 04-23-2024 CNOV Office Visit (VASSWS ) -- MARY ALICE GA ([id number]) 1950 F Date Time Provider Department 04/23/24 10:30 AM GT YIN VASTRS During your visit today, we recorded the following information about you: Pulse Blood pressure 59/minute 126/68 Gt Yin, 05/23/2024 4:21 PM Signed [facility] [place] DEPARTMENT OF VASCULAR SURGERY OUTPATIENT VISIT DATE [...] vein at the knee crease. An incompetent community development coordinator is noted at mid calf and another [...] benefit fr (more content not included)... Normal [facility] CNTHERAPYon 04-23-2024 CNTHERAPY OT/PT/Speech Visit ( PTWS) -- MARY ALICE GA ([id number]) 1950 F Date Time Provider Department 04/23/24 2:15 PM LISETH ALANIS PTWS Date Time Provider Department [place] 04/23/2024 2:15 PM [id number] ALANIS PTWS [place] Reason for Visit: [...] mg by mouth three times daily. Normal [facility] CNTHERAPYon 04-16-2024 CNTHERAPY OT/PT/Speech Visit ( PTWS) -- MARY ALICE GA ([id number]) 1950 F Date Time Provider Department 04/16/24 10:30 AM LISETH ALANIS PTLUTHER Date Time Provider Department Center 04/16/2024 10:30 AM [id number] ALANIS PTLUTHER [place] Reason for Visit: Physical [...] mg by mouth three times daily. -- Vice President Quality Improvement: Therapy (PT/OT/Speech/Resp) ID: [id number] 04/16/2024 11:01 AM Author: LISETH ALANIS Signed by LISETH ALANIS PT on 04/16/2024 at 11:01 AM Document text: Program_ID:[id number] Access Code: [email or web address] URL: [email or web address] Date: 04-16-2024 Prepared By: Liseth Alanis Program Notes Exercises - Lateral Shift Correction at Wall - 2-3 x daily - 7 x weekly - 4 sets - 10 reps Normal [facility] THERAPY NTon 04-16-2024 THERAPY NT HNO ID: [id number] Author: LISETH ALANIS PT Service: ? Author Type: Physical Therapist Type: Therapy (PT/OT/Speech/Resp) Filed: 04/16/2024 11:01 Note Text: Program_ID:[id number] Access Code: [email or web address] URL: [email or web address] Date: 04-16-2024 Prepared By: Liseth Alanis Program Notes Exercises - Lateral Shift Correction at Wall - 2-3 x daily - 7 x weekly - 4 sets - 10 reps Normal [facility] CNOVon 04-03-2024 CNOV Office Visit (VSLWST ) -- MARY ALICE GA ([id number]) 1950 F Date Time Provider Department 04/03/24 2:30 PM [facility] WSTR VSLWST During your visit today, we recorded the following information about you: Referring Provider: GT YIN [[id number]] Allergies As of Date: 04/03/2024 Noted Allergy Reaction CLARITHROMYCIN (BULK) 06/15/2010 14 - Other: See Comments Comments: pancrititis STEROIDS (BETAMETHASONE DIPROPION*06/15/2010 5 - Intolerance Comments: pancritis Date Reviewed: 04/02/2024 Reviewed by: Latonia Fernandez OCCA - Fully Assessed Visit Diagnoses:Venous (peripheral) insufficiency [I87.2] Symptomatic varicose veins of both lower extremities [I83.893] Order(s):US VENOUS INCOMPETENCY [facility] [0967108] Order #: [id number]. #:[id number] Prescriptions as of 05/22/2024 - LASIX 40 [...] by DOUGLAS STARR CMA on 05/22/24 Normal [facility] VENOUS INCOMPETENCY ALBERT V LABon 04-03-2024 VENOUS INCOMPETENCY [facility] Non-Invasive Vascular Laboratory [facility] Venous Valvular Incompetency Bilateral/Complete Date of service/time: [...] equal to 0.5 second. Size 0.37 cm. Scaffold Setter vein proximal/mid calf Augmentation reflux none. Valsalva reflux none. Size 0.35 cm. Depth 0.94 cm. Scaffold Setter vein proximal/mid calf Augmentation reflux none. Valsalva reflux none. Size 0.22 cm. Depth 0.58 cm. Scaffold Setter vein mid calf Augmentation reflux none. Size [...] AND PERFORATORS Varicosity knee Size 0.43 cm. Scaffold Setter vein mid calf Augmentation reflux greater than or equal to 0.35 second. Size 0.33 cm. Depth 0.99 cm. Scaffold Setter vein distal calf Valsalva reflux greater than [...] vein at the knee crease. An incompetent community development coordinator is noted at mid calf and another at distal calf. Negative for valvular incompetency in the anterior accessory great saphenous vein. Varicosities arise proximal thigh and course along anterior thigh. Negative for valvular incompetency in the small saphenous vein. Technologist: Daphnie Evans (more content not included)... Normal [facility] US Vein - bilateralon 2023 Non-Invasive Vascular Laboratory [facility] Venous Valvular Incompetency Bilateral/Complete Date of service/time: [...] equal to 0.5 second. Size 0.37 cm. Scaffold Setter vein proximal/mid calf Augmentation reflux none. Valsalva reflux none. Size 0.35 cm. Depth 0.94 cm. Scaffold Setter vein proximal/mid calf Augmentation reflux none. Valsalva reflux none. Size 0.22 cm. Depth 0.58 cm. Scaffold Setter vein mid calf Augmentation reflux none. Size [...] AND PERFORATORS Varicosity knee Size 0.43 cm. Scaffold Setter vein mid calf Augmentation reflux greater than or equal to 0.35 second. Size 0.33 cm. Depth 0.99 cm. Scaffold Setter vein distal calf Valsalva reflux greater than [...] vein at the knee crease. An incompetent community development coordinator is noted at mid calf and another at distal calf. Negative for valvular incompetency in the anterior accessory great saphenous vein. Varicosities arise proximal thigh and course along anterior thigh. Negative for valvular incompetency in the small sapheno (more content not included)... [facility] CNOVon 04-02-2024 CNOV Office Visit (EDUARD ) -- MARY ALICE GA ([id number]) 1950 F Date Time Provider Department 04/02/24 [...] femoral neck fracture 3 years ago in [place] and was treated with a uncemented hemiarthroplasty [...] which included preparing to see the patient, bhrc-ad-nrig patient care, completing clinical documentation, obtaining and/or [...] - Fully Assessed Reason for Visit: New [196546] Pain [78] Primary Visit Diagnosis:S/P hip hemiarthroplasty [Z96.649] Other Visit Diagnosis:Degenerative scoliosis [M41.50] Order(s):CONSULT TO [facility] [009378] Order #: [id number]: 1 FUTURE Prescriptions as of 04/02/2024 - [...] Number: [id number] (more content not included)... Normal [facility] XR Hip - left AP and Lateral on 04-02-2024 IMPRESSION: Findings as discussed in results portion of report Liquid Fertilizer Servicer: ABDIEL Transcribe Date/Time: Apr 02 2024 2:38P Dictated by : ZOHREH HURTADO DO This examination was interpreted and the report reviewed and electronically signed by: ZOHREH HURTADO DO on Apr 02 2024 2:39PM [facility] * * *Final Report* * * [...] Marked narrowing of the RIGHT hip joint [facility] Provider, Krishna Chun [place] - 04/02/2024 * * *Final Report* * * DATE OF EXAM: Apr 02 2024 12:48PM O 5279 - XR HIP 2V AP/ LAT [...] as discussed in results portion of report Liquid Fertilizer Servicer: ABDIEL Transcribe Date/Time: Apr 02 2024 2:38P Dictated by : ZOHREH HURTADO DO This examination was interpreted and the report reviewed and electronically signed by: ZOHREH HURTADO DO on Apr 02 2024 2:39PM [facility] Radiology Study observation (narrative) [facility] XR Hip - left AP and Lateral Ordered By: [facility] Provider on 04-02-2024 [facility] CNTHERAPYon 04-01-2024 CNTHERAPY OT/PT/Speech Visit ( PTWS) -- MARY ALICE GA Chucky ([id number]) 1950 F Date Time Provider Department 04/01/24 4:15 PM LISETH ALANIS Date Time Provider Department [place] 04/01/2024 4:15 PM [id number] ALANIS [place] Reason for Visit: Physical Therapy [503] Primary [...] by mouth three times daily. -- Normal [facility] CNTHERAPYon 03-26-2024 CNTHERAPY OT/PT/Speech Visit ( PTWS) -- MARY ALICE GA F ([id number]) 1950 F Date Time Provider Department 03/26/24 11:15 AM LISETH ALANIS PTLUTHER Date Time Provider Department Center 03/26/2024 11:15 AM [id number] ALANIS Reason for Visit: Physical Therapy [503] [...] mg by mouth three times daily. -- Vice President Quality Improvement: Therapy (PT/OT/Speech/Resp) ID: [id number] 03/26/2024 11:46 AM Author: LISETH ALANIS Signed by LISETH ALANIS PT on 03/26/2024 at 11:46 AM Document text: Program_ID:[id number] Access Code: [email or web address] URL: [email or web address].vt Well/ Date: 03-26-2024 Prepared By: Liseth Alanis Program [...] - 2 sets - 10 reps Normal [facility] THERAPY NTon 03-26-2024 THERAPY NT HNO ID: [id number] Author: LISETH ALANIS PT Service: ? Author Type: Physical Therapist Type: Therapy (PT/OT/Speech/Resp) Filed: 03/26/2024 11:46 Note Text: Program_ID:[id number] Access Code: [email or web address] URL: [email or web address] Well/ Date: 03-26-2024 Prepared By: Liseth Alanis Program [...] - 2 sets - 10 reps Normal [facility] CNTHERAPYon 03-20-2024 CNTHERAPY OT/PT/Speech Visit ( PTWS) -- MARY ALICE GA ([id number]) 1950 F Date Time Provider Department 03/20/24 12:00 PM LISETH ALANIS Date Time Provider Department Center 03/20/2024 12:00 PM [id number] ALANIS Reason for Visit: Physical Therapy [503] [...] by mouth three times daily. -- Normal [facility] [id number] 03-13-2024 [id number] O ID: [id number] Author: LISETH ALANIS PT Service: ? Author Type: Physical Therapist Type: [id number] Filed: 03/13/2024 13:32 Note Text: [facility] Physical Therapy Plan of Care Certification Patient Name: Mary Alice Ga : 1950 CC #: [id number] Date: 03/13/2024 To: Solo Calderón PA From Therapist: Liseth Alanis PT RE: Patient Certification/ Recertification Your review, approval and electronic signature are required in order to comply with Payor: MEDICARE / Plan: MEDICARE A AND B / Product Type: Medicare / Appsindep. The identified Physical Therapy PLAN OF CARE [...] to reflect decreased fall risk. -- PROGRESSING [place] in home exercise program including cardiovascular exercise. [...] Patient to be seen for Gait Training (82630), Self-usp management (23531), Therapeutic activities (93083), Manual therapy (35585), Neuromuscular re-education (17685), Therapeutic exercise (44260) PLAN FOR NEXT VISIT: work on step ups, uneven surfaces For further details regarding this patient refer to the Physical Therapy electronically documented visit dated 03/13/2024. Provider Attestation I have reviewed the treatment plan for Mary Alice Ga, [facility]# [id number] for the period of 03/13/24 -- 05/08/24, established on 03/13/2024. Signature certifies the need for therapy services. Normal [facility] CNTHERAPYon 03-13-2024 CNTHERAPY OT/PT/Speech Visit ( PTWS) -- MARY ALICE GA ([id number]) 1950 F Date Time Provider Department 03/13/24 12:45 PM LISETH ALANIS PTLUTHER Date Time Provider Department Center 03/13/2024 12:45 PM [id number] ALANIS Reason for Visit: PT Progress Note [1596] [...] twice daily. Letter Text Letter Text Normal [facility] CNOVon 02-27-2024 CNOV Office Visit (VASSWS ) -- MARY ALICE GA ([id number]) 1950 F Date Time Provider Department 02/27/24 8:30 AM GT YINS During your visit today, we recorded the following information about you: Pulse Blood pressure 61/minute 128/66 Gt Yin, DO 03/26/2024 1:56 PM Signed [facility] [place] DEPARTMENT OF VASCULAR SURGERY OUTPATIENT VISIT DATE [...] past year. She has been treated at [place] [facility]. They recommend HBO to help with healing. She has history of AGSV EVLT and phlebectomy in 2015. She had reflux testing at [place] which demonstrated reflux and had ablation a few months ago and has had issue healing since the procedure. She wears compression stockings- knee high stockings. She currently has epifix in place with an compression dressing. 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 She stands for long periods of time during the day. 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 Has used compression pumps [...] and americo (more content not included)... Normal [facility] CNTHERAPYon 02-20-2024 CNTHERAPY OT/PT/Speech Visit ( PTWS) -- MARY ALICE GA F ([id number]) 1950 F Date Time Provider Department 02/20/24 10:30 AM LISETH ALANIS PTLUTHER Date Time Provider Department [place] 02/20/2024 10:30 AM [id number] ALANIS PTLUTHER [place] Reason for Visit: Physical [...] by mouth three times daily. -- Normal [facility] CNTHERAPYon 02-13-2024 CNTHERAPY OT/PT/Speech Visit ( PTWS) -- MARY ALICE GA F ([id number]) 1950 F Date Time Provider Department 02/13/24 10:30 AM LISETH ALANIS PTLUTHER Date Time Provider Department [place] 02/13/2024 10:30 AM [id number]-ULISETH ALANIS PTLUTHER [place] Reason for Visit: Physical [...] mg by mouth three times daily. -- Vice President Quality Improvement: Therapy (PT/OT/Speech/Resp) ID: [id number] 02/13/2024 11:06 AM Author: LISETH ALANIS Signed by LISETH ALANIS PT on 02/13/2024 at 11:06 AM Document text: Program_ID:[id number] Access Code: [email or web address] URL: [email or web address] Date: 02-13-2024 Prepared By: Liseth Alanis Program [...] - 2 sets - 12 reps Normal [facility] THERAPY NTon 06-11-2024 THERAPY NT HNO ID: [id number] Author: LISETH ALANIS PT Service: ? Author Type: Physical Therapist Type: Therapy (PT/OT/Speech/Resp) Filed: 02/13/2024 11:06 Note Text: Program_ID:[id number] Access Code: [email or web address] URL: [email or web address] Date: 02-13-2024 Prepared By: Liseth Alanis Program [...] - 2 sets - 12 reps Normal [facility] CNTHERAPYon 02-06-2024 CNTHERAPY OT/PT/Speech Visit ( PTWS) -- MARY ALICE GA ([id number]) 1950 F Date Time Provider Department 02/06/24 8:15 AM LISETH ALANIS PTWS Date Time Provider Department Center 02/06/2024 8:15 AM [id number] ALANIS PTWS Eliot Carrillo Reason for Visit: [...] mg by mouth three times daily. -- Vice President Quality Improvement: Therapy (PT/OT/Speech/Resp) ID: [id number] 02/06/2024 8:47 AM Author: LISETH ALANIS Signed by LISETH ALANIS PT on 02/06/2024 at 8:47 AM Document text: Program_ID:[id number] Access Code: [email or web address] URL: [email or web address] Date: 02-06-2024 Prepared By: Liseth Alanis Program [...] - 4 sets - 15 reps Normal [facility] THERAPY NTon 02-06-2024 THERAPY NT HNO ID: [id number] Author: LISETH ALANIS PT Service: ? Author Type: Physical Therapist Type: Therapy (PT/OT/Speech/Resp) Filed: 02/06/2024 08:47 Note Text: Program_ID:[id number] Access Code: [email or web address] URL: [email or web address] Date: 02-06-2024 Prepared By: Liseth Alanis Program [...] - 4 sets - 15 reps Normal [facility] CNTHERAPYon 01-30-2024 CNTHERAPY OT/PT/Speech Visit ( PTWS) -- MARY ALICE GA F ([id number]) 1950 F Date Time Provider Department 01/30/24 10:30 AM LISETH ALANIS PTWS Date Time Provider Department Center 01/30/2024 10:30 AM [id number] ALANIS PTWS Eliot Carrillo Reason for Visit: [...] mg by mouth three times daily. -- Vice President Quality Improvement: Therapy (PT/OT/Speech/Resp) ID: [id number] 01/30/2024 11:07 AM Author: LISETH ALANIS Signed by LISETH ALANIS PT on 01/30/2024 at 11:07 AM Document text: Program_ID:[id number] Access Code: [email or web address] URL: [email or web address] Date: 01-30-2024 Prepared By: Liseth Alanis Program Notes Exercises - Seated Lumbar Flexion Stretch - 2-3 x daily - 7 x weekly - 2-3 sets - 10 reps Normal [facility] THERAPY NTon 01-30-2024 THERAPY NT HNO ID: [id number] Author: LISETH ALANIS PT Service: ? Author Type: Physical Therapist Type: Therapy (PT/OT/Speech/Resp) Filed: 01/30/2024 11:07 Note Text: Program_ID:[id number] Access Code: [email or web address] URL: [email or web address] [email or web address] Well/ Date: 01-30-2024 Prepared By: Liseth Alanis Program Notes Exercises - Seated Lumbar Flexion Stretch - 2-3 x daily - 7 x weekly - 2-3 sets - 10 reps Normal [facility] [id number] 01-24-2024 [id number] HNO ID: [id number] Author: LISETH ALANIS PT Service: ? Author Type: Physical Therapist Type: [id number] Filed: 01/24/2024 17:24 Note Text: [facility] Physical Therapy Plan of Care Certification Patient Name: Mary Alice Ga : 1950 [facility] #: [id number] Date: 01/24/2024 To: Solo Calderón PA From [...] more repetitions to reflect decreased fall risk. [place] in home exercise program including cardiovascular exercise. Complete 6 MWT [phone] ft or more with or without SC. Patient Goals: amb without an AD from handicap spot to front door without LOB Planned Interventions, Frequency, and Duration: Current Frequency: 1x/week Duration: 6 weeks Total Number of Visits Planned: 6 Planned Treatment Interventions: Self-usp management (53346), Gait Training (95653), Therapeutic activities (41356), Manual therapy (98459), Neuromuscular re-education (60489), Therapeutic exercise (48225) PLAN FOR NEXT VISIT: 6 MWT Patient demonstrates good understanding of plan of care and treatment. The above goals and plan of care were discussed and agreed upon by patient/family. For further details regarding this patient refer to the Physical Therapy electronically documented visit dated 01/24/2024. Provider Attestation I have reviewed the treatment plan for Mary Alice Ga, [facility]# [id number] for the period of 01/24/24 -- 03/20/24, established on 01/24/2024. Signature certifies the need for therapy services. Normal [facility] CNTHERAPYon 01-24-2024 CNTHERAPY OT/PT/Speech Visit ( PTWS) -- MARY ALICE GA ([id number]) 1950 F Date Time Provider Department 01/24/24 3:45 PM LISETH ALANIS PTLUTHER Date Time Provider Department [place] 01/24/2024 3:45 PM [id number] ALANIS PTWS [facility] [employer] Reason for Visit: PT Eval [817] Primary Visit Diagnosis:Other malaise [R53.81] Allergies As [...] Letter Text Letter Text Letter Text Normal [facility] Absolute lymphocyte countOrd ered By: Solo Calderón on 01-05-2024 Lymphocytes Auto (Unsp spec) [#/Vol] 0.97 10*3/uL 0.83-4.51 [facility] Automated lymphocyte count a s percentage of total leukocytesOrdered By: Solo Calderón on 01-05-2024 Lymphocytes/100 WBC Auto (Unsp spec) 11.0 % 19-41 [facility] Basophil percentageOrdered B y: Solo Calderón on 01-05-2024 Basophils/100 WBC (Bld) 0.2 % 0-1 [facility] Bilirubin [Mass/Vol] 4.80 mg/dL 0.20-1.00 [facility] Comment on above: For patients on eltr ombopag therapy, use of Dimension [place] TBIL is not recommended. Chloride [Moles/Vol] 98 mmol/L 98-107 [facility] Eosinophils/100 WBC (Bld) 0.5 % 0-5 [facility] Glucose [Mass/Vol] 113 mg/dL 74-106 [facility] Comment on above: Fasting Glucose resu lt from 100 to 125 mg/dL suggests IMPAIRED HOMEOSTASIS per A.D.A. criteria. Hemoglobin (Bld) [Mass/Vol] 9.9 g/dL 12.0-15.0 [facility] Monocytes/100 WBC (Bld) 7.3 % 0-10 [facility] Neutrophils (Bld) [#/Vol] 7.1 10*3/uL 2.0-7.7 [facility] Neutrophils/100 WBC (Bld) 80.5 % 47-70 [facility] Potassium [Moles/Vol] 3.0 mmol/L 3.5-5.1 [facility] Protein [Mass/Vol] 6.1 g/dL 6.4-8.2 [facility] Sodium [Moles/Vol] 131 mmol/L 136-145 [facility] WBC (Bld) [#/Vol] 8.9 10*3/uL 4.4-11.0 [facility] Determination of erythrocyte mean corpuscular volume (MCV)Ordered By: Solo Calderón on 01-05-2024 MCV (RBC) [Entitic vol] 105.2 fL 81-99 [facility] Erythrocyte distribution wid th ratioOrdered By: Solo Calderón on 01-05-2024 Erythrocyte distribution width (RBC) [Ratio] 13.0 % 11.6-14.6 [facility] Erythrocyte distribution wid th standard deviationOrdered By: Solo Calderón on 01-05-2024 Erythrocyte distribution width (RBC) [Entitic vol] 50.1 fL 35.1-43.9 [facility] Hematocrit Auto (Bld) [Volum e fraction]Ordered By: Solo Calderón on 01-05-2024 Hematocrit (Bld) [Volume fraction] 28.4 % 37-47 [facility] Immature granulocytes/100 WB C Auto (Bld)Ordered By: Solo Calderón on 01-05-2024 Immature granulocytes/100 WBC (Bld) 0.500 % 0.0-0.9 [facility] Comment on above: IG% - Immature Granu locytes (promyelocytes, myelocytes and metamyelocytes) > 1% indicates that a LEFT SHIFT is Present. Laboratory - Chemistry and C hemistry - challengeOrdered By: Solo Calderón on 01-05-2024 Albumin/Globulin [Mass ratio] 0.7 {ratio} 0.9-2.4 [facility] ALP [Catalytic activity/Vol] 201 U/L 45-117 [facility] ALT [Catalytic activity/Vol] 26 U/L 13-56 [facility] CO2 [Moles/Vol] 24.0 mmol/L 21.0-32.0 [facility] Cobalamin (Vitamin B12) [Mass/Vol] 1503 pg/mL 211-911 [facility] Globulin (S) [Mass/Vol] 3.5 g/dL 2.2-4.2 [facility] Natriuretic peptide B (Bld) [Mass/Vol] 279.9 pg/mL 0-100 [facility] Urea nitrogen/Creatinine [Mass ratio] 8.1 mg/mg 10-20 [facility] Laboratory - Hematology and Cell countsOrdered By: Solo Calderón on 01-05-2024 MCH (RBC) [Entitic mass] 36.7 pg 27.0-32.0 [facility] MCHC (RBC) [Mass/Vol] 34.9 g/dL 32-36 [facility] Nucleated RBC/100 WBC (Bld) [Ratio] 0 % 0-5 [facility] Platelet mean volume (Bld) [Entitic vol] 9.6 fL 6.2-12.0 [facility] Platelets (Bld) [#/Vol] 165 10*3/uL 150-450 [facility] No Panel InformationOrdered By: Solo Calderón on 01-05-2024 Estimated GFR (MDRD) Amer 122 mL/min >60 [facility] Comment on above: GFR Calc Estimated GFR (MDRD) Non-Af Amer 101 mL/min >60 [facility] Comment on above: Non- GFR Calc Folate 9.10 ng/mL 3.1-55.4 [facility] RBC Auto (Bld) [#/Vol]Ordere d By: Solo Calderón on 01-05-2024 RBC (Bld) [#/Vol] 2.70 10*6/uL 4.2-5.4 [facility] Serum or plasma calcium seth urement (mass/volume)Ordered By: Solo Calderón on 01-05-2024 Calcium [Mass/Vol] 8.6 mg/dL 8.5-10.1 [facility] Serum or plasma creatinine m easurement (mass/volume)Ordered By: Solo Calderón on 01-05-2024 Creatinine [Mass/Vol] 0.62 mg/dL 0.55-1.02 [facility] Comment on above: The validity of the calculated GFR & GFRAA in patients over 70 years has not been determined. Clinical correlation is essential. Serum or plasma thiamine mitul surement (mass/volume)Ordered By: Solo Calderón on 01-05-2024 Thiamine [Mass/Vol] 78.3 nmol/L 66.5-200.0 [facility] Serum or plasma urea nitroge n measurement (mass/volume)Ordered By: Solo Calderón on 01-05-2024 Urea nitrogen [Mass/Vol] 5 mg/dL 7-18 [facility] Serum or plasma zinc measure ment (mass/volume)Ordered By: Solo Calderón on 01-05-2024 Zinc [Mass/Vol] 50 ug/dL 44-115 [facility] Comment on above: Detection Limit = 5P erformed at: - [facility] [id number] Director: Lesly Carty MD, Phone: [phone] Thin prep Papanicolaou smear with manual screeningOrdered By: Solo Calderón on 01-05-2024 Thin prep Papanicolaou smear with manual screening 2.6 g/dL 3.2-5.0 [facility] Thin prep Papanicolaou smear with manual screening 43 U/L 15-37 [facility] Thin prep Papanicolaou smear with manual screening 9 5-15 [facility] Basophil percentageOrdered B y: Harrison Roper on 12-30-2023 Bilirubin [Mass/Vol] 4.20 mg/dL 0.20-1.00 [facility] Comment on above: For patients on eltr ombopag therapy, use of Dim[place] TBIL is not recommended. Chloride [Moles/Vol] 109 mmol/L 98-107 [facility] Glucose [Mass/Vol] 88 mg/dL 74-106 [facility] Potassium [Moles/Vol] 3.8 mmol/L 3.5-5.1 [facility] Protein [Mass/Vol] 5.1 g/dL 6.4-8.2 [facility] Sodium [Moles/Vol] 134 mmol/L 136-145 [facility] Direct bilirubinOrdered By: Harrison Roper on 12-30-2023 Bilirubin.direct [Mass/Vol] 3.14 mg/dL 0.00-0.30 [facility] Laboratory - Chemistry and C hemistry - challengeOrdered By: Harrison Roper on 12-30-2023 ALP [Catalytic activity/Vol] 185 U/L 45-117 [facility] ALT [Catalytic activity/Vol] 35 U/L 13-56 [facility] CO2 [Moles/Vol] 21.0 mmol/L 21.0-32.0 [facility] Globulin (S) [Mass/Vol] 2.9 g/dL 2.2-4.2 [facility] Urea nitrogen/Creatinine [Mass ratio] 25.5 mg/mg 10-20 [facility] No Panel InformationOrdered By: Harrison Roper on 12-30-2023 Estimated Creatinine Clearance Calc 62.03 ml/min [facility] Estimated GFR (MDRD) Amer 140 mL/min >60 [facility] Comment on above: GFR Calc Estimated GFR (MDRD) Non-Af Amer 116 mL/min >60 [facility] Comment on above: Non- GFR Calc Serum or plasma calcium seth urement (mass/volume)Ordered By: Harrison Roper on 12-30-2023 Calcium [Mass/Vol] 8.2 mg/dL 8.5-10.1 [facility] Serum or plasma creatinine m easurement (mass/volume)Ordered By: Harrison Roper on 12-30-2023 Creatinine [Mass/Vol] 0.55 mg/dL 0.55-1.02 [facility] Comment on above: The validity of the calculated GFR & GFRAA in patients over 70 years has not been determined. Clinical correlation is essential. Serum or plasma urea nitroge n measurement (mass/volume)Ordered By: Harrison Roper on 12-30-2023 Urea nitrogen [Mass/Vol] 14 mg/dL 7-18 [facility] Thin prep Papanicolaou smear with manual screeningOrdered By: Harrison Roper on 12-30-2023 Thin prep Papanicolaou smear with manual screening 2.2 g/dL 3.2-5.0 [facility] Thin prep Papanicolaou smear with manual screening 94 U/L 15-37 [facility] Thin prep Papanicolaou smear with manual screening 4 5-15 [facility] Absolute lymphocyte countOrd ered By: Harrison Roper on 12-29-2023 Lymphocytes Auto (Unsp spec) [#/Vol] 0.36 10*3/uL 0.83-4.51 [facility] Automated lymphocyte count a s percentage of total leukocytesOrdered By: Harrison Roper on 12-29-2023 Lymphocytes/100 WBC Auto (Unsp spec) 7.5 % 19-41 [facility] Basophil percentageOrdered B y: Harrison Roper on 12-29-2023 Basophils/100 WBC (Bld) 0.0 % 0-1 [facility] Eosinophils/100 WBC (Bld) 0.0 % 0-5 [facility] Hemoglobin (Bld) [Mass/Vol] 8.2 g/dL 12.0-15.0 [facility] Monocytes/100 WBC (Bld) 2.5 % 0-10 [facility] Neutrophils (Bld) [#/Vol] 4.3 10*3/uL 2.0-7.7 [facility] Neutrophils/100 WBC (Bld) 89.6 % 47-70 [facility] WBC (Bld) [#/Vol] 4.8 10*3/uL 4.4-11.0 [facility] Determination of erythrocyte mean corpuscular volume (MCV)Ordered By: Harrison Roper on 12-29-2023 MCV (RBC) [Entitic vol] 109.0 fL 81-99 [facility] Erythrocyte distribution wid th ratioOrdered By: Harrison Roper on 12-29-2023 Erythrocyte distribution width (RBC) [Ratio] 13.1 % 11.6-14.6 [facility] Erythrocyte distribution wid th standard deviationOrdered By: Harrison Roper on 12-29-2023 Erythrocyte distribution width (RBC) [Entitic vol] 51.9 fL 35.1-43.9 [facility] Hematocrit Auto (Bld) [Volum e fraction]Ordered By: Harrison Roper on 12-29-2023 Hematocrit (Bld) [Volume fraction] 24.3 % 37-47 [facility] Immature granulocytes/100 WB C Auto (Bld)Ordered By: Harrison Roper on 12-29-2023 Immature granulocytes/100 WBC (Bld) 0.400 % 0.0-0.9 [facility] Comment on above: IG% - Immature Granu locytes (promyelocytes, myelocytes and metamyelocytes) > 1% indicates that a LEFT SHIFT is Present. Laboratory - Chemistry and C hemistry - challengeOrdered By: Harrison Roper on 12-29-2023 Magnesium [Mass/Vol] 2.1 mg/dL 1.6-2.6 [facility] Laboratory - Hematology and Cell countsOrdered By: Harrison Roper on 12-29-2023 MCH (RBC) [Entitic mass] 36.8 pg 27.0-32.0 [facility] MCHC (RBC) [Mass/Vol] 33.7 g/dL 32-36 [facility] Nucleated RBC/100 WBC (Bld) [Ratio] 0 % 0-5 [facility] Platelet mean volume (Bld) [Entitic vol] 9.8 fL 6.2-12.0 [facility] Platelets (Bld) [#/Vol] 73 10*3/uL 150-450 [facility] RBC Auto (Bld) [#/Vol]Ordere d By: Harrison Roper on 12-29-2023 RBC (Bld) [#/Vol] 2.23 10*6/uL 4.2-5.4 [facility] Basophil percentageOrdered B y: Dalton Izaguirre on 12-28-2023 Basophil percentage 3.2 mg/dL 2.5-4.9 [facility] Blood manual differential co mment interpretation (narrative result)Ordered By: Harrison Roper on 12-28-2023 Manual differential comment Emir (Bld) [Interp] SCANNED [facility] Blood platelet adequacy dete ction by light microscopyOrdered By: Harrison Roper on 12-28-2023 Platelets LM Ql (Bld) MOD DEC ADEQ [facility] Blood polychromasia detectio n by light microscopyOrdered By: Harrison Roper on 12-28-2023 Polychromasia LM Ql (Bld) 1+ [facility] Erythrocyte [place] bod y detectionOrdered By: Harrison Roper on 12-28-2023 [place] bodies LM Ql (Bld) RARE [facility] Laboratory - CoagulationOrde red By: Harrison Roper on 12-28-2023 INR Coag (Bld) [Relative time] 1.4 {INR} [facility] PT Coag (PPP) [Time] 16.9 s 11.7-14.9 [facility] Laboratory - Hematology and Cell countsOrdered By: Harrison Roper on 12-28-2023 Anisocytosis Ql (Bld) 2+ [facility] Macrocytes detectionOrdered By: Harrison Roper on 12-28-2023 Macrocytes Ql (Bld) 2+ [facility] Ovalocyte detectionOrdered B y: Harrison Roper on 12-28-2023 Ovalocytes LM Ql (Bld) [facility] Review by pathologistOrdered By: Harrison Roper on 12-28-2023 Pathologist review Emir (Unsp spec) [Interp] Reviewed [facility] Comment on above: Previous reported re sult: Shira benton Edited by: FRAN on 12/28/23:1530Pancytopenia.LeukopeniaMacrocytic anemia.Moderate Thrombocytopenia.Clinical correlation necessary.Ari Anderson M.D. 12/28/23 AMENDED REPORT 12/28/23 1530 PATH REV previously reported as: Shira benton Absolute lymphocyte countOrd ered By: Yair Lazcano on 12-27-2023 Lymphocytes Auto (Unsp spec) [#/Vol] 1.61 10*3/uL 0.83-4.51 [facility] Activated partial thrombopla stin time (aPTT) in platelet poor plasma by coagulation aOrdered By: Yair Lazcano on 12-27-2023 aPTT Coag (PPP) [Time] 32.0 s 24.1-36.2 [facility] Automated lymphocyte count a s percentage of total leukocytesOrdered By: Yair Lazcano on 12-27-2023 Lymphocytes/100 WBC Auto (Unsp spec) 19.2 % 19-41 [facility] Basophil percentageOrdered B y: Harrison Judson on 12-27-2023 Basophil percentage 3.5 mg/dL 2.5-4.9 [facility] Basophil percentageOrdered B y: Yair Lazcano on 12-27-2023 Basophils/100 WBC (Bld) 0.2 % 0-1 [facility] Bilirubin [Mass/Vol] 7.40 mg/dL 0.20-1.00 [facility] Comment on above: For patients on eltr ombopag therapy, use of [place] TBIL is not recommended. Chloride [Moles/Vol] 100 mmol/L 98-107 [facility] Eosinophils/100 WBC (Bld) 0.4 % 0-5 [facility] Glucose [Mass/Vol] 99 mg/dL 74-106 [facility] Hemoglobin (Bld) [Mass/Vol] 10.1 g/dL 12.0-15.0 [facility] Monocytes/100 WBC (Bld) 6.7 % 0-10 [facility] Neutrophils (Bld) [#/Vol] 6.1 10*3/uL 2.0-7.7 [facility] Neutrophils/100 WBC (Bld) 73.0 % 47-70 [facility] Potassium [Moles/Vol] 3.2 mmol/L 3.5-5.1 [facility] Protein [Mass/Vol] 6.2 g/dL 6.4-8.2 [facility] Sodium [Moles/Vol] 138 mmol/L 136-145 [facility] WBC (Bld) [#/Vol] 8.4 10*3/uL 4.4-11.0 [facility] Basophil percentage 0-5 SEEN /hpf 0-5 [facility] Bilirubin Test strip Ql (U)O rdered By: Yair Lazcano on 12-27-2023 Bilirubin Ql (U) 1 mg/dL Negative [facility] Comment on above: COLOR OF URINE MAY A FFECT DIPSTICK RESULTS. Determination of erythrocyte mean corpuscular volume (MCV)Ordered By: Yair Lazcano on 12-27-2023 MCV (RBC) [Entitic vol] 106.8 fL 81-99 [facility] Direct bilirubinOrdered By: Yair Lazcano on 12-27-2023 Bilirubin.direct [Mass/Vol] 4.50 mg/dL 0.00-0.30 [facility] Erythrocyte distribution wid th ratioOrdered By: Yair Lazcano on 12-27-2023 Erythrocyte distribution width (RBC) [Ratio] 12.8 % 11.6-14.6 [facility] Erythrocyte distribution wid th standard deviationOrdered By: Yair Lazcano on 12-27-2023 Erythrocyte distribution width (RBC) [Entitic vol] 50.0 fL 35.1-43.9 [facility] Hematocrit Auto (Bld) [Volum e fraction]Ordered By: Yair Lazcano on 12-27-2023 Hematocrit (Bld) [Volume fraction] 29.7 % 37-47 [facility] Immature granulocytes/100 WB C Auto (Bld)Ordered By: Yair Lazcano on 12-27-2023 Immature granulocytes/100 WBC (Bld) 0.500 % 0.0-0.9 [facility] Comment on above: IG% - Immature Granu locytes (promyelocytes, myelocytes and metamyelocytes) > 1% indicates that a LEFT SHIFT is Present. Ketones Test strip Ql (U)Ord ered By: Yair Lazcano on 12-27-2023 Ketones Ql (U) 5 mg/dl Negative [facility] Laboratory - Chemistry and C hemistry - challengeOrdered By: Yair Lazcano on 12-27-2023 ALP [Catalytic activity/Vol] 218 U/L 45-117 [facility] ALT [Catalytic activity/Vol] 23 U/L 13-56 [facility] CO2 [Moles/Vol] 30.0 mmol/L 21.0-32.0 [facility] Globulin (S) [Mass/Vol] 3.6 g/dL 2.2-4.2 [facility] Lipase [Catalytic activity/Vol] 31 U/L 13-75 [facility] Comment on above: Please note:LIPASE r evised reference range effective 22. New Lipase methodology. Expected to produce lower values than the previous assay method. NEW Reference Range: 13 - 75 U/L Urea nitrogen/Creatinine [Mass ratio] 50.8 mg/mg 10-20 [facility] Laboratory - Chemistry and C hemistry - challengeOrdered By: Harrison Roper on 12-27-2023 Magnesium [Mass/Vol] 1.5 mg/dL 1.6-2.6 [facility] Laboratory - CoagulationOrde red By: Yair Lazcano on 12-27-2023 INR Coag (Bld) [Relative time] 1.3 {INR} [facility] PT Coag (PPP) [Time] 15.7 s 11.7-14.9 [facility] Laboratory - Hematology and Cell countsOrdered By: Yair Lazcano on 12-27-2023 MCH (RBC) [Entitic mass] 36.3 pg 27.0-32.0 [facility] MCHC (RBC) [Mass/Vol] 34.0 g/dL 32-36 [facility] Nucleated RBC/100 WBC (Bld) [Ratio] 0 % 0-5 [facility] Platelet mean volume (Bld) [Entitic vol] 9.5 fL 6.2-12.0 [facility] Platelets (Bld) [#/Vol] 102 10*3/uL 150-450 [facility] Lower GI hemoglobin IA Ql (S tl)Ordered By: Yair Lazcano on 12-27-2023 Stool Occult Blood (KENDRA) Positive [facility] Mucus LM Ql (Urine sed)Order ed By: Yair Lazcano on 12-27-2023 Mucus Ql (Urine sed) 0 SEEN /hpf [facility] Nitrite Test strip Ql (U)Ord ered By: Yair Lazcano on 12-27-2023 Nitrite Ql (U) Negative Negative [facility] No Panel InformationOrdered By: Yair Lazcano on 12-27-2023 Estimated GFR (MDRD) Amer 104 mL/min >60 [facility] Comment on above: GFR Calc Estimated GFR (MDRD) Non-Af Amer 86 mL/min >60 [facility] Comment on above: Non- GFR Calc Urine RBC 0-5 SEEN /hpf 0-5 [facility] Protein Test strip Ql (U)Ord ered By: Yair Lazcano on 12-27-2023 Protein Ql (U) 15 mg/dl Negative [facility] RBC Auto (Bld) [#/Vol]Ordere d By: Yair Lazcano on 12-27-2023 RBC (Bld) [#/Vol] 2.78 10*6/uL 4.2-5.4 [facility] Serum or plasma calcium seth urement (mass/volume)Ordered By: Yair Lazcano on 12-27-2023 Calcium [Mass/Vol] 9.6 mg/dL 8.5-10.1 [facility] Serum or plasma creatinine m easurement (mass/volume)Ordered By: Yair Lazcano on 12-27-2023 Creatinine [Mass/Vol] 0.71 mg/dL 0.55-1.02 [facility] Comment on above: The validity of the calculated GFR & GFRAA in patients over 70 years has not been determined. Clinical correlation is essential. Serum or plasma urea nitroge n measurement (mass/volume)Ordered By: Yair Lazcano on 12-27-2023 Urea nitrogen [Mass/Vol] 36 mg/dL 7-18 [facility] Squamous epithelial cells de tection in urine sediment by light microscopyOrdered By: Yair Lazcano on 12-27-2023 Epithelial cells.squamous LM Ql (Urine sed) 0 SEEN /hpf 5-10 [facility] Thin prep Papanicolaou smear with manual screeningOrdered By: Yair Lazcano on 12-27-2023 Thin prep Papanicolaou smear with manual screening 2.6 g/dL 3.2-5.0 [facility] Thin prep Papanicolaou smear with manual screening 57 U/L 15-37 [facility] Thin prep Papanicolaou smear with manual screening 8 5-15 [facility] Urine blood detectionOrdered By: Yair Lazcano on 12-27-2023 RBC Ql (U) 10 /ul Negative [facility] Urine clarityOrdered By: Arun Lazcano on 12-27-2023 Clarity (U) Sl. Cloudy Clear [facility] Urine color determinationOrd ered By: Yair Lazcano on 12-27-2023 Color (U) Yellow Yellow [facility] Urine glucose detectionOrder ed By: Yair Lazcano on 12-27-2023 Glucose Ql (U) Normal mg/dl Normal [facility] Urine leukocyte esterase det ection by dipstickOrdered By: Yair Lazcano on 12-27-2023 Leukocyte esterase Test strip Ql (U) 25 /ul Negative [facility] Urine pHOrdered By: Yair villegas on 12-27-2023 pH (U) 7.0 [pH] 5.0 - 8.0 [facility] Urine sediment bacteria coun t by microscopy (number/high power field)Ordered By: Yair Lazcano on 12-27-2023 Bacteria LM.HPF (Urine sed) [#/Area] 0 /[HPF] None Seen [facility] Urine specific gravity measu rementOrdered By: Yair Lazcano on 12-27-2023 Specific gravity (U) [Rel density] 1.005 1.002-1.03 0 [facility] Urine urobilinogen measureme ntOrdered By: Yair Lazcano on 12-27-2023 Urobilinogen Ql (U) 4 mg/dl Normal [facility] Basophil percentageOrdered B y: Solo Calderón on 11-15-2023 Ammonia (P) [Moles/Vol] 38.0 umol/L 11-32 [facility] Basophil percentageOrdered B y: Khanh Rodriguez on 11-15-2023 Chloride [Moles/Vol] 101 mmol/L 98-107 [facility] Glucose [Mass/Vol] 97 mg/dL 74-106 [facility] Potassium [Moles/Vol] 4.1 mmol/L 3.5-5.1 [facility] Sodium [Moles/Vol] 134 mmol/L 136-145 [facility] Laboratory - Chemistry and C hemistry - challengeOrdered By: Khanh Rodriguez on 11-15-2023 CO2 [Moles/Vol] 25.0 mmol/L 21.0-32.0 [facility] Urea nitrogen/Creatinine [Mass ratio] 10.7 mg/mg 10-20 [facility] No Panel InformationOrdered By: Khanh Rodriguez on 11-15-2023 Estimated GFR (MDRD) Amer 136 mL/min >60 [facility] Comment on above: GFR Calc Estimated GFR (MDRD) Non-Af Amer 113 mL/min >60 [facility] Comment on above: Non- GFR Calc Vitamin D 25-Hydroxy 66.3 ng/mL [facility] Comment on above: Vitamin D 25(OH) Sta tus Range Deficiency <20 ng/mL (50nmol/L) Insufficiency 20 - 30 ng/mL (50 - 75 nmol/L) Sufficiency 30 - 100 ng/mL (75 - 250 nmol/L) Toxicity >100 ng/mL (>250 nmol/L) No Panel InformationOrdered By: Solo Calderón on 11-15-2023 Folate 1.60 ng/mL 3.1-55.4 [facility] Serum or plasma calcium seth urement (mass/volume)Ordered By: Khanh Rodriguez on 11-15-2023 Calcium [Mass/Vol] 9.2 mg/dL 8.5-10.1 [facility] Serum or plasma creatinine m easurement (mass/volume)Ordered By: Khanh Rodriguez on 11-15-2023 Creatinine [Mass/Vol] 0.56 mg/dL 0.55-1.02 [facility] Comment on above: The validity of the calculated GFR & GFRAA in patients over 70 years has not been determined. Clinical correlation is essential. Serum or plasma thiamine mitul surement (mass/volume)Ordered By: Solo Calderón on 11-15-2023 Thiamine [Mass/Vol] 69.8 nmol/L 66.5-200.0 [facility] Comment on above: Performed at: [address] [id number] Director: Lesly Carty MD, Phone: [phone] Serum or plasma urea nitroge n measurement (mass/volume)Ordered By: Khanh Rodriguez on 11-15-2023 Urea nitrogen [Mass/Vol] 6 mg/dL 7-18 [facility] Thin prep Papanicolaou smear with manual screeningOrdered By: Khanh Rodriguez on 11-15-2023 Thin prep Papanicolaou smear with manual screening 8 5-15 [facility] Basophil percentageOrdered B y: Khanh Rodriguez on 11-03-2023 Chloride [Moles/Vol] 92 mmol/L 98-107 [facility] Glucose [Mass/Vol] 105 mg/dL 74-106 [facility] Comment on above: Fasting Glucose resu lt from 100 to 125 mg/dL suggests IMPAIRED HOMEOSTASIS per A.D.A. criteria. Potassium [Moles/Vol] 2.9 mmol/L 3.5-5.1 [facility] Sodium [Moles/Vol] 130 mmol/L 136-145 [facility] Laboratory - Chemistry and C hemistry - challengeOrdered By: Khanh Rodriguez on 11-03-2023 CO2 [Moles/Vol] 30.0 mmol/L 21.0-32.0 [facility] Natriuretic peptide B (Bld) [Mass/Vol] 494.5 pg/mL 0-100 [facility] Urea nitrogen/Creatinine [Mass ratio] 15.2 mg/mg 10-20 [facility] No Panel InformationOrdered By: Khanh Rodriguez on 11-03-2023 Estimated GFR (MDRD) Amer 114 mL/min >60 [facility] Comment on above: GFR Calc Estimated GFR (MDRD) Non-Af Amer 94 mL/min >60 [facility] Comment on above: Non- GFR Calc Serum or plasma calcium seth urement (mass/volume)Ordered By: Khanh Rodriguez on 11-03-2023 Calcium [Mass/Vol] 9.5 mg/dL 8.5-10.1 [facility] Serum or plasma creatinine m easurement (mass/volume)Ordered By: Khanh Rodriguez on 11-03-2023 Creatinine [Mass/Vol] 0.66 mg/dL 0.55-1.02 [facility] Comment on above: The validity of the calculated GFR & GFRAA in patients over 70 years has not been determined. Clinical correlation is essential. Serum or plasma urea nitroge n measurement (mass/volume)Ordered By: Khanh Rodriguez on 11-03-2023 Urea nitrogen [Mass/Vol] 10 mg/dL 7-18 [facility] Thin prep Papanicolaou smear with manual screeningOrdered By: Khanh Rodriguez on 11-03-2023 Thin prep Papanicolaou smear with manual screening 8 5-15 [facility] Basophil percentageOrdered B y: Shabbir Galaviz on 10-26-2023 Chloride [Moles/Vol] 87 mmol/L 98-107 [facility] Glucose [Mass/Vol] 124 mg/dL 74-106 [facility] Comment on above: Fasting Glucose resu lt from 100 to 125 mg/dL suggests IMPAIRED HOMEOSTASIS per A.D.A. criteria. Hemoglobin (Bld) [Mass/Vol] 11.6 g/dL 12.0-15.0 [facility] Potassium [Moles/Vol] 3.4 mmol/L 3.5-5.1 [facility] Comment on above: Moderate Hemolysis, Result may be falsely increased. Sodium [Moles/Vol] 125 mmol/L 136-145 [facility] WBC (Bld) [#/Vol] 5.2 10*3/uL 4.4-11.0 [facility] Determination of erythrocyte mean corpuscular volume (MCV)Ordered By: Shabbir Galaviz on 10-26-2023 MCV (RBC) [Entitic vol] 102.6 fL 81-99 [facility] Erythrocyte distribution wid th ratioOrdered By: hSabbir Galaviz on 10-26-2023 Erythrocyte distribution width (RBC) [Ratio] 15.9 % 11.6-14.6 [facility] Erythrocyte distribution wid th standard deviationOrdered By: Shabbir Galaviz on 10-26-2023 Erythrocyte distribution width (RBC) [Entitic vol] 58.5 fL 35.1-43.9 [facility] Hematocrit Auto (Bld) [Volum e fraction]Ordered By: Shabbir Galaviz on 10-26-2023 Hematocrit (Bld) [Volume fraction] 31.1 % 37-47 [facility] Laboratory - Chemistry and C hemistry - challengeOrdered By: Shabbir Galaviz on 10-26-2023 CO2 [Moles/Vol] 30.0 mmol/L 21.0-32.0 [facility] Urea nitrogen/Creatinine [Mass ratio] 9.0 mg/mg 10-20 [facility] Laboratory - Hematology and Cell countsOrdered By: Shabbir Galaviz on 10-26-2023 MCH (RBC) [Entitic mass] 38.3 pg 27.0-32.0 [facility] MCHC (RBC) [Mass/Vol] 37.3 g/dL 32-36 [facility] Platelet mean volume (Bld) [Entitic vol] 9.3 fL 6.2-12.0 [facility] Platelets (Bld) [#/Vol] 121 10*3/uL 150-450 [facility] No Panel InformationOrdered By: Shabbir Galaviz on 10-26-2023 Estimated Creatinine Clearance Calc 58.50 ml/min [facility] Estimated GFR (MDRD) Amer 111 mL/min >60 [facility] Comment on above: GFR Calc Estimated GFR (MDRD) Non-Af Amer 92 mL/min >60 [facility] Comment on above: Non- GFR Calc RBC Auto (Bld) [#/Vol]Ordere d By: Shabbir Galaviz on 10-26-2023 RBC (Bld) [#/Vol] 3.03 10*6/uL 4.2-5.4 [facility] Serum or plasma calcium seth urement (mass/volume)Ordered By: Shabbir Galaviz on 10-26-2023 Calcium [Mass/Vol] 8.9 mg/dL 8.5-10.1 [facility] Serum or plasma creatinine m easurement (mass/volume)Ordered By: Shabbir Galaviz on 10-26-2023 Creatinine [Mass/Vol] 0.67 mg/dL 0.55-1.02 [facility] Comment on above: The validity of the calculated GFR & GFRAA in patients over 70 years has not been determined. Clinical correlation is essential. Serum or plasma urea nitroge n measurement (mass/volume)Ordered By: Shabbir Galaviz on 10-26-2023 Urea nitrogen [Mass/Vol] 6 mg/dL 7-18 [facility] Thin prep Papanicolaou smear with manual screeningOrdered By: Shabbir Galaviz on 10-26-2023 Thin prep Papanicolaou smear with manual screening 8 5-15 [facility] Anaerobic cultureOrdered By: Mariela Martines on 08-16-2023 Bacteria identified Anaer cx Nom (Unsp spec) No growth in 5 days. [facility] Bacteria identified Anaer cx Nom (Unsp spec) No growth in 5 days. [facility] Bacteria identified Cx Nom ( Wound)Ordered By: Mariela Martines on 08-16-2023 Wound Culture Acinetobacter baumannii [facility] Wound Culture Acinetobacter baumannii [facility] Gram stain for investigation of transfusion reactionOrdered By: Mariela Matrines on 08-16-2023 Microscopic observation Gram stain Nom (Unsp spec) [facility] Microscopic observation Gram stain Nom (Unsp spec) [facility] No Panel InformationOrdered By: Nabeel Patel on 07-10-2023 Miscellaneous Test Comment MAILED SPECIMEN [facility] Basophil percentageOrdered B y: Uday Brooks on 06-08-2023 Bilirubin [Mass/Vol] 1.70 mg/dL 0.20-1.00 [facility] Comment on above: For patients on eltr ombopag therapy, use of Dimension [place] TBIL is not recommended. Chloride [Moles/Vol] 98 mmol/L 98-107 [facility] Glucose [Mass/Vol] 111 mg/dL 74-106 [facility] Comment on above: Fasting Glucose resu lt from 100 to 125 mg/dL suggests IMPAIRED HOMEOSTASIS per A.D.A. criteria. Potassium [Moles/Vol] 3.8 mmol/L 3.5-5.1 [facility] Protein [Mass/Vol] 6.8 g/dL 6.4-8.2 [facility] Sodium [Moles/Vol] 132 mmol/L 136-145 [facility] WBC (Bld) [#/Vol] 5.1 10*3/uL 4.4-11.0 [facility] Blood erythrocytes count (nu mber/volume)Ordered By: Uday Brooks on 06-08-2023 RBC (Bld) [#/Vol] 3.40 10*6/uL 4.2-5.4 [facility] Blood hemoglobin measurement (mass/volume)Ordered By: Uday Brooks on 06-08-2023 Hemoglobin (Bld) [Mass/Vol] 12.2 g/dL 12.0-15.0 [facility] Blood platelet mean volumeOr dered By: Uday Brooks on 06-08-2023 Platelet mean volume (Bld) [Entitic vol] 8.8 fL 6.2-12.0 [facility] Determination of erythrocyte mean corpuscular volume (MCV)Ordered By: Uday Brooks on 06-08-2023 MCV (RBC) [Entitic vol] 100.9 fL 81-99 [facility] Hematocrit Auto (Bld) [Volum e fraction]Ordered By: Uday Brooks on 06-08-2023 Hematocrit (Bld) [Volume fraction] 34.3 % 37-47 [facility] INR in Blood by Coagulation assayOrdered By: Uday Brooks on 06-08-2023 INR Coag (Bld) [Relative time] 1.2 {INR} [facility] Laboratory - Chemistry and C hemistry - challengeOrdered By: Uday Brooks on 06-08-2023 ALP [Catalytic activity/Vol] 170 U/L 45-117 [facility] ALT [Catalytic activity/Vol] 20 U/L 13-56 [facility] CO2 [Moles/Vol] 30.0 mmol/L 21.0-32.0 [facility] Globulin (S) [Mass/Vol] 3.9 g/dL 2.2-4.2 [facility] Urea nitrogen/Creatinine [Mass ratio] 15.6 mg/mg 10-20 [facility] Laboratory - CoagulationOrde red By: Uday Brooks on 06-08-2023 aPTT Coag (Bld) [Time] 33.6 s 24.1-36.2 [facility] PT Coag (PPP) [Time] 15.0 s 11.7-14.9 [facility] Laboratory - Hematology and Cell countsOrdered By: Uday Brooks on 06-08-2023 Erythrocyte distribution width (RBC) [Entitic vol] 47.0 fL 35.1-43.9 [facility] Erythrocyte distribution width (RBC) [Ratio] 12.6 % 11.6-14.6 [facility] MCH (RBC) [Entitic mass] 35.9 pg 27.0-[facility].0 [facility] ([facility]BC) [Mass/Vol]Or dered By: Uday Brooks on 06-08-2023 MCHC (RBC) [Mass/Vol] 35.6 g/dL 32-36 [facility] No Panel InformationOrdered By: Uday Brooks on 06-08-2023 Estimated GFR (MDRD) Amer 118 mL/min >60 [facility] Comment on above: GFR Calc Estimated GFR (MDRD) Non-Af Amer 97 mL/min >60 [facility] Comment on above: Non- GFR Calc Platelets bldOrdered By: Anton Brooks on 06-08-2023 Platelets (Bld) [#/Vol] 109 10*3/uL 150-450 [facility] Serum or plasma albumin seth urement (mass/volume)Ordered By: Uday Brooks on 06-08-2023 Albumin [Mass/Vol] 2.9 g/dL 3.2-5.0 [facility] Serum or plasma albumin/glob ulin mass ratioOrdered By: Uday Brooks on 06-08-2023 Albumin/Globulin [Mass ratio] 0.7 {ratio} 0.9-2.4 [facility] Serum or plasma calcium seth urement (mass/volume)Ordered By: Uday Brooks on 06-08-2023 Calcium [Mass/Vol] 9.1 mg/dL 8.5-10.1 [facility] Serum or plasma creatinine m easurement (mass/volume)Ordered By: Uday Brooks on 06-08-2023 Creatinine [Mass/Vol] 0.64 mg/dL 0.55-1.02 [facility] Comment on above: The validity of the calculated GFR & GFRAA in patients over 70 years has not been determined. Clinical correlation is essential. Serum or plasma urea nitroge n measurement (mass/volume)Ordered By: Uday Brooks on 06-08-2023 Urea nitrogen [Mass/Vol] 10 mg/dL 7-18 [facility] Thin prep Papanicolaou smear with manual screeningOrdered By: Uday Brooks on 06-08-2023 Thin prep Papanicolaou smear with manual screening 35 U/L 15-37 [facility] Thin prep Papanicolaou smear with manual screening 4 5-15 [facility] Anaerobic cultureOrdered By: Mariela Martines on 05-23-2023 Bacteria identified Anaer cx Nom (Unsp spec) No anaerobic bacteria isolated. [facility] Bacteria identified Cx Nom ( Wound)Ordered By: Mariela Martines on 05-23-2023 Wound Culture Staphylococcus aureus [facility] Wound Culture Staphylococcus epidermidis [facility] Gram stain for investigation of transfusion reactionOrdered By: Mariela Martines on 05-23-2023 Microscopic observation Gram stain Nom (Unsp spec) [facility] Basophil percentageOrdered B y: Khanh Rodriguez on 05-03-2023 Ammonia (P) [Moles/Vol] 50.0 umol/L -32 [facility] Bilirubin [Mass/Vol] 2.60 mg/dL 0.20-1.00 [facility] Comment on above: For patients on eltr ombopag therapy, use of Dimension [place] TBIL is not recommended. Chloride [Moles/Vol] 100 mmol/L 98-107 [facility] Glucose [Mass/Vol] 101 mg/dL 74-106 [facility] Comment on above: Fasting Glucose resu lt from 100 to 125 mg/dL suggests IMPAIRED HOMEOSTASIS per A.D.A. criteria. Potassium [Moles/Vol] 4.4 mmol/L 3.5-5.1 [facility] Protein [Mass/Vol] 7.0 g/dL 6.4-8.2 [facility] Sodium [Moles/Vol] 133 mmol/L 136-145 [facility] Laboratory - Chemistry and C hemistry - challengeOrdered By: Khanh Rodriguez on 05-03-2023 ALP [Catalytic activity/Vol] 299 U/L 45-117 [facility] ALT [Catalytic activity/Vol] 30 U/L 13-56 [facility] Amylase [Catalytic activity/Vol] 1353 U/L 5-55 [facility] CO2 [Moles/Vol] 27.0 mmol/L 21.0-32.0 [facility] Globulin (S) [Mass/Vol] 4.1 g/dL 2.2-4.2 [facility] Urea nitrogen/Creatinine [Mass ratio] 13.8 mg/mg 10-20 [facility] No Panel InformationOrdered By: Khanh Rodriguez on 05-03-2023 Estimated GFR (MDRD) Amer 115 mL/min >60 [facility] Comment on above: GFR Calc Estimated GFR (MDRD) Non-Af Amer 95 mL/min >60 [facility] Comment on above: Non- GFR Calc Serum or plasma albumin seth urement (mass/volume)Ordered By: Khanh Rodriguez on 05-03-2023 Albumin [Mass/Vol] 2.9 g/dL 3.2-5.0 [facility] Serum or plasma albumin/glob ulin mass ratioOrdered By: Khanh Rodriguez on 05-03-2023 Albumin/Globulin [Mass ratio] 0.7 {ratio} 0.9-2.4 [facility] Serum or plasma calcium seth urement (mass/volume)Ordered By: Khanh Rodriguez on 05-03-2023 Calcium [Mass/Vol] 9.2 mg/dL 8.5-10.1 [facility] Serum or plasma creatinine m easurement (mass/volume)Ordered By: Khanh Rodriguez on 05-03-2023 Creatinine [Mass/Vol] 0.65 mg/dL 0.55-1.02 [facility] Comment on above: The validity of the calculated GFR & GFRAA in patients over 70 years has not been determined. Clinical correlation is essential. Serum or plasma urea nitroge n measurement (mass/volume)Ordered By: Khanh Rodriguez on 05-03-2023 Urea nitrogen [Mass/Vol] 9 mg/dL 7-18 [facility] Thin prep Papanicolaou smear with manual screeningOrdered By: Khanh Rodriguez on 05-03-2023 Thin prep Papanicolaou smear with manual screening 70 U/L 15-37 [facility] Thin prep Papanicolaou smear with manual screening 6 5-15 [facility] Absolute lymphocyte countOrd ered By: Khanh Rodriguez on 04-26-2023 Lymphocytes Auto (Unsp spec) [#/Vol] 1.05 10*3/uL 0.83-4.51 [facility] Basophil percentageOrdered B y: Khanh Rodriguez on 04-26-2023 Basophils/100 WBC (Bld) 0.8 % 0-1 [facility] Bilirubin [Mass/Vol] 3.10 mg/dL 0.20-1.00 [facility] Comment on above: For patients on eltr ombopag therapy, use of Dim[employer] [place] TBIL is not recommended. Chloride [Moles/Vol] 96 mmol/L 98-107 [facility] Eosinophils/100 WBC (Bld) 0.8 % 0-5 [facility] Glucose [Mass/Vol] 107 mg/dL 74-106 [facility] Comment on above: Fasting Glucose resu lt from 100 to 125 mg/dL suggests IMPAIRED HOMEOSTASIS per A.D.A. criteria. Neutrophils (Bld) [#/Vol] 3.4 10*3/uL 2.0-7.7 [facility] Neutrophils/100 WBC (Bld) 68.5 % 47-70 [facility] Potassium [Moles/Vol] 3.9 mmol/L 3.5-5.1 [facility] Protein [Mass/Vol] 6.9 g/dL 6.4-8.2 [facility] Sodium [Moles/Vol] 131 mmol/L 136-145 [facility] WBC (Bld) [#/Vol] 5.0 10*3/uL 4.4-11.0 [facility] Blood erythrocytes count (nu mber/volume)Ordered By: Khanh Rodriguez on 04-26-2023 RBC (Bld) [#/Vol] 3.32 10*6/uL 4.2-5.4 [facility] Blood hemoglobin measurement (mass/volume)Ordered By: Khanh Rodriguez on 04-26-2023 Hemoglobin (Bld) [Mass/Vol] 12.0 g/dL 12.0-15.0 [facility] Blood lymphocytes/100 leukoc ytesOrdered By: Khanh Rodriguez on 04-26-2023 Lymphocytes/100 WBC (Bld) 21.2 % 19-41 [facility] Blood monocytes/100 leukocyt esOrdered By: Khanh Rodriguez on 04-26-2023 Monocytes/100 WBC (Bld) 8.3 % 0-10 [facility] Blood platelet mean volumeOr dered By: Khanh Rodriguez on 04-26-2023 Platelet mean volume (Bld) [Entitic vol] 8.9 fL 6.2-12.0 [facility] Determination of erythrocyte mean corpuscular volume (MCV)Ordered By: Khanh Rodriguez on 04-26-2023 MCV (RBC) [Entitic vol] 103.6 fL 81-99 [facility] Hematocrit Auto (Bld) [Volum e fraction]Ordered By: valeriolenafortino Rodriguez on 04-26-2023 Hematocrit (Bld) [Volume fraction] 34.4 % 37-47 [facility] Laboratory - Chemistry and C hemistry - challengeOrdered By: valeriolenafortino Changgloria on 04-26-2023 ALP [Catalytic activity/Vol] 258 U/L 45-117 [facility] ALT [Catalytic activity/Vol] 24 U/L 13-56 [facility] CO2 [Moles/Vol] 28.0 mmol/L 21.0-32.0 [facility] Globulin (S) [Mass/Vol] 4.0 g/dL 2.2-4.2 [facility] Urea nitrogen/Creatinine [Mass ratio] 12.9 mg/mg 10-20 [facility] Laboratory - Hematology and Cell countsOrdered By: Shonnalenafortino Rodriguez on 04-26-2023 Erythrocyte distribution width (RBC) [Entitic vol] 51.7 fL 35.1-43.9 [facility] Erythrocyte distribution width (RBC) [Ratio] 13.5 % 11.6-14.6 [facility] Immature granulocytes/100 WBC (Bld) 0.400 % 0.0-0.9 [facility] Comment on above: IG% - Immature Granu locytes (promyelocytes, myelocytes and metamyelocytes) > 1% indicates that a LEFT SHIFT is Present. MCH (RBC) [Entitic mass] 36.1 pg 27.0-32.0 [facility] Nucleated RBC/100 WBC (Bld) [Ratio] 0 % 0-5 [facility] MCHC Auto (RBC) [Mass/Vol]Or dered By: Khanh Rodriguez on 04-26-2023 MCHC (RBC) [Mass/Vol] 34.9 g/dL 32-36 [facility] No Panel InformationOrdered By: Khanh Rodriguez on 04-26-2023 Estimated GFR (MDRD) Amer 122 mL/min >60 [facility] Comment on above: GFR Calc Estimated GFR (MDRD) Non-Af Amer 101 mL/min >60 [facility] Comment on above: Non- GFR Calc Platelets bldOrdered By: Francisco Rodriguez on 04-26-2023 Platelets (Bld) [#/Vol] 141 10*3/uL 150-450 [facility] Serum or plasma albumin seth urement (mass/volume)Ordered By: Khanh Rodriguez on 04-26-2023 Albumin [Mass/Vol] 2.9 g/dL 3.2-5.0 [facility] Serum or plasma albumin/glob ulin mass ratioOrdered By: Khanh Rodriguez on 04-26-2023 Albumin/Globulin [Mass ratio] 0.7 {ratio} 0.9-2.4 [facility] Serum or plasma calcium seth urement (mass/volume)Ordered By: Khanh Rodriguez on 04-26-2023 Calcium [Mass/Vol] 9.3 mg/dL 8.5-10.1 [facility] Serum or plasma creatinine m easurement (mass/volume)Ordered By: Khanh Rodriguez on 04-26-2023 Creatinine [Mass/Vol] 0.62 mg/dL 0.55-1.02 [facility] Comment on above: The validity of the calculated GFR & GFRAA in patients over 70 years has not been determined. Clinical correlation is essential. Serum or plasma urea nitroge n measurement (mass/volume)Ordered By: Khanh Rodriguez on 04-26-2023 Urea nitrogen [Mass/Vol] 8 mg/dL 7-18 [facility] Thin prep Papanicolaou smear with manual screeningOrdered By: Khanh Rodriguez on 04-26-2023 Thin prep Papanicolaou smear with manual screening 74 U/L 15-37 [facility] Thin prep Papanicolaou smear with manual screening 7 5-15 [facility] Anaerobic cultureOrdered By: Mariela Martines on 02-23-2023 Bacteria identified Anaer cx Nom (Unsp spec) No anaerobic bacteria isolated. [facility] Bacteria identified Cx Nom ( Wound)Ordered By: Mariela Martines on 02-23-2023 Wound Culture Staphylococcus epidermidis [facility] Gram stain for investigation of transfusion reactionOrdered By: Mariela Martines on 02-23-2023 Microscopic observation Gram stain Nom (Unsp spec) [facility] Anaerobic cultureOrdered By: Mariela Martines on 01-29-2023 Bacteria identified Anaer cx Nom (Unsp spec) No anaerobic bacteria isolated. [facility] Bacteria identified Cx Nom ( Wound)Ordered By: Mariela Martines on 01-28-2023 Wound Culture Pseudomonas aeruginosa [facility] Wound Culture Staphylococcus pseudintermediu [facility] Anaerobic cultureOrdered By: Mariela Martines on 01-25-2023 Bacteria identified Anaer cx Nom (Unsp spec) No anaerobic bacteria isolated. [facility] Bacteria identified Cx Nom ( Wound)Ordered By: Mariela Martines on 01-25-2023 Wound Culture Pseudomonas aeruginosa [facility] Wound Culture Staphylococcus pseudintermediu [facility] Gram stain for investigation of transfusion reactionOrdered By: Mariela Martines on 01-25-2023 Microscopic observation Gram stain Nom (Unsp spec) [facility] Absolute lymphocyte countOrd ered By: Dr. Rodriguez on 01-20-2023 Lymphocytes Auto (Unsp spec) [#/Vol] 1.02 10*3/uL 0.83-4.51 [facility] Basophil percentageOrdered B y: Dr. Rodriguez on 01-20-2023 Basophils/100 WBC (Bld) 1.0 % 0-1 [facility] Bilirubin [Mass/Vol] 2.80 mg/dL 0.20-1.00 [facility] Comment on above: For patients on eltr ombopag therapy, use of [employer] [place] TBIL is not recommended. Chloride [Moles/Vol] 81 mmol/L 98-107 [facility] Cholesterol [Mass/Vol] 191 mg/dL <200 [facility] Comment on above: <200 mg/dL Desirable 200-240 mg/dL Borderline >240 mg/dL High Risk Eosinophils/100 WBC (Bld) 1.4 % 0-5 [facility] Glucose [Mass/Vol] 114 mg/dL 74-106 [facility] Comment on above: Fasting Glucose resu lt from 100 to 125 mg/dL suggests IMPAIRED HOMEOSTASIS per A.D.A. criteria. Neutrophils (Bld) [#/Vol] 3.3 10*3/uL 2.0-7.7 [facility] Neutrophils/100 WBC (Bld) 64.6 % 47-70 [facility] Potassium [Moles/Vol] 2.7 mmol/L 3.5-5.1 [facility] Comment on above: Critical Result(s) C alled at: 13:29:15 01/20/2023 by: Bebo Bolivar. Estevan Olivarez RN ([facility]). Results read back by same. Protein [Mass/Vol] 7.3 g/dL 6.4-8.2 [facility] Sodium [Moles/Vol] 125 mmol/L 136-145 [facility] Triglyceride [Mass/Vol] 70 mg/dL <199 [facility] Comment on above: The drugs N-Acetylcy steine and Metamizole may falsely depress this assay.Serum Triglycerides Reference Interval Normal <150 mg/dL Borderline high 150 - 199 mg/dL High 200 - 499 mg/dL Very High > or = 500 mg/dL WBC (Bld) [#/Vol] 5.1 10*3/uL 4.4-11.0 [facility] Blood erythrocytes count (nu mber/volume)Ordered By: Dr. Rodriguez on 01-20-2023 RBC (Bld) [#/Vol] 3.14 10*6/uL 4.2-5.4 [facility] Blood hemoglobin measurement (mass/volume)Ordered By: Dr. Rodriguez on 01-20-2023 Hemoglobin (Bld) [Mass/Vol] 11.6 g/dL 12.0-15.0 [facility] Blood lymphocytes/100 leukoc ytesOrdered By: Dr. Rodriguez on 01-20-2023 Lymphocytes/100 WBC (Bld) 19.9 % 19-41 [facility] Blood monocytes/100 leukocyt esOrdered By: Dr. Rodriguez on 01-20-2023 Monocytes/100 WBC (Bld) 12.7 % 0-10 [facility] Blood platelet mean volumeOr dered By: Dr. Rodriguez on 01-20-2023 Platelet mean volume (Bld) [Entitic vol] 9.7 fL 6.2-12.0 [facility] Determination of erythrocyte mean corpuscular volume (MCV)Ordered By: Dr. Rodriguez on 01-20-2023 MCV (RBC) [Entitic vol] 101.3 fL 81-99 [facility] Hematocrit Auto (Bld) [Volum e fraction]Ordered By: Dr. Rodriguez on 01-20-2023 Hematocrit (Bld) [Volume fraction] 31.8 % 37-47 [facility] Laboratory - Chemistry and C hemistry - challengeOrdered By: Dr. Rodriguez on 01-20-2023 ALP [Catalytic activity/Vol] 203 U/L 45-117 [facility] ALT [Catalytic activity/Vol] 26 U/L 13-56 [facility] CO2 [Moles/Vol] 33.0 mmol/L 21.0-32.0 [facility] Free T4 [Mass/Vol] 1.45 ng/dL 0.76-1.46 [facility] Globulin (S) [Mass/Vol] 4.1 g/dL 2.2-4.2 [facility] Urea nitrogen/Creatinine [Mass ratio] 17.1 mg/mg 10-20 [facility] Laboratory - Hematology and Cell countsOrdered By: Dr. Rodriguez on 01-20-2023 Erythrocyte distribution width (RBC) [Entitic vol] 58.4 fL 35.1-43.9 [facility] Erythrocyte distribution width (RBC) [Ratio] 15.9 % 11.6-14.6 [facility] Immature granulocytes/100 WBC (Bld) 0.400 % 0.0-0.9 [facility] Comment on above: IG% - Immature Granu locytes (promyelocytes, myelocytes and metamyelocytes) > 1% indicates that a LEFT SHIFT is Present. MCH (RBC) [Entitic mass] 36.9 pg 27.0-32.0 [facility] Nucleated RBC/100 WBC (Bld) [Ratio] 0 % 0-5 [facility] MCHC Auto (RBC) [Mass/Vol]Or dered By: Dr. Rodriguez on 01-20-2023 MCHC (RBC) [Mass/Vol] 36.5 g/dL 32-36 [facility] No Panel InformationOrdered By: Dr. Rodriguez on 01-20-2023 Estimated GFR (MDRD) Amer 168 mL/min >60 [facility] Comment on above: GFR Calc Estimated GFR (MDRD) Non-Af Amer 139 mL/min >60 [facility] Comment on above: Non- GFR Calc Thyroid Stimulating Hormone (TSH) 0.99 uIU/mL 0.358-3.74 [facility] Platelets bldOrdered By: Dr. Rodriguez on 01-20-2023 Platelets (Bld) [#/Vol] 114 10*3/uL 150-450 [facility] Serum or plasma albumin seth urement (mass/volume)Ordered By: Dr. Rodriguez on 01-20-2023 Albumin [Mass/Vol] 3.2 g/dL 3.2-5.0 [facility] Serum or plasma albumin/glob ulin mass ratioOrdered By: Dr. Rodriguez on 01-20-2023 Albumin/Globulin [Mass ratio] 0.8 {ratio} 0.9-2.4 [facility] Serum or plasma calcium seth urement (mass/volume)Ordered By: Dr. Rodriguez on 01-20-2023 Calcium [Mass/Vol] 9.2 mg/dL 8.5-10.1 [facility] Serum or plasma cholesterol in HDL measurement (mass/volume)Ordered By: Dr. Rodriguez on 01-20-2023 Cholesterol in HDL [Mass/Vol] 119 mg/dL >40 [facility] Comment on above: The drugs N-Acetylcy steine and Metamizole may falsely depress this assay. Reference Range HDL <40 mg/dL Low HDL Cholesterol HDL >or= 60 mg/dL High HDL Cholesterol Serum or plasma cholesterol in VLDL measurement (mass/volume)Ordered By: Dr. Rodriguez on 01-20-2023 Cholesterol in VLDL [Mass/Vol] 14 mg/dL 5-40 [facility] Serum or plasma creatinine m easurement (mass/volume)Ordered By: Dr. Rodriguez on 01-20-2023 Creatinine [Mass/Vol] 0.47 mg/dL 0.55-1.02 [facility] Comment on above: The validity of the calculated GFR & GFRAA in patients over 70 years has not been determined. Clinical correlation is essential. Serum or plasma low density lipoprotein (LDL) cholesterol measurement (mass/volume)Ordered By: Dr. Rodriguez on 01-20-2023 Cholesterol in LDL [Mass/Vol] 58 mg/dL 0-130 [facility] Serum or plasma urea nitroge n measurement (mass/volume)Ordered By: Dr. Rodriguez on 01-20-2023 Urea nitrogen [Mass/Vol] 8 mg/dL 7-18 [facility] Thin prep Papanicolaou smear with manual screeningOrdered By: Dr. Rodriguez on 01-20-2023 Thin prep Papanicolaou smear with manual screening 79 U/L 15-37 [facility] Thin prep Papanicolaou smear with manual screening 11 5-15 [facility] Basophil percentageon 2021 Chloride [Moles/Vol] 93 mmol/L 98-107 [facility] Work Phone: Glucose [Mass/Vol] 86 mg/dL 74-106 [facility] Work Phone: Potassium [Moles/Vol] 3.7 mmol/L 3.5-5.1 [facility] Work Phone: Sodium [Moles/Vol] 131 mmol/L 136-145 [facility] Work Phone: Laboratory - Chemistry and C hemistry - challengeon 05-31-2022 CO2 [Moles/Vol] 28.0 mmol/L 21.0-32.0 [facility] Work Phone: Urea nitrogen/Creatinine [Mass ratio] 13.2 mg/mg 10-20 [facility] Work Phone: No Panel Informationon 05-31 Estimated GFR (MDRD) Amer 147 mL/min >60 [facility] Work Phone: Comment on above: GFR Calc Estimated GFR (MDRD) Non-Af Amer 121 mL/min >60 [facility] Work Phone: Comment on above: Non- GFR Calc Serum or plasma calcium seth urement (mass/volume)on 05-31-2022 Calcium [Mass/Vol] 9.4 mg/dL 8.5-10.1 [facility] Work Phone: Serum or plasma creatinine m easurement (mass/volume)on 05-31-2022 Creatinine [Mass/Vol] 0.53 mg/dL 0.55-1.02 [facility] Work Phone: Comment on above: The validity of the calculated GFR & GFRAA in patients over 70 years has not been determined. Clinical correlation is essential. Serum or plasma urea nitroge n measurement (mass/volume)on 05-31-2022 Urea nitrogen [Mass/Vol] 7 mg/dL 7-18 [facility] Work Phone: Thin prep Papanicolaou smear with manual screeningon 05-31-2022 Thin prep Papanicolaou smear with manual screening 10 5-15 [facility] Work Phone: Basophil percentageon 2021 Bilirubin [Mass/Vol] 1.70 mg/dL 0.20-1.00 [facility] Work Phone: Comment on above: For patients on eltr ombopag therapy, use of [employer] [place] TBIL is not recommended. Chloride [Moles/Vol] 93 mmol/L 98-107 [facility] Work Phone: Glucose [Mass/Vol] 133 mg/dL 74-106 [facility] Work Phone: Comment on above: Fasting Glucose resu lt greater than or equal to 126 mg/dL suggests DIABETES MELLITUS per A.D.A. criteria. Potassium [Moles/Vol] 3.4 mmol/L 3.5-5.1 [facility] Work Phone: Protein [Mass/Vol] 7.5 g/dL 6.4-8.2 [facility] Work Phone: Sodium [Moles/Vol] 129 mmol/L 136-145 [facility] Work Phone: Laboratory - Chemistry and C hemistry - challengeon 04-11-2022 ALP [Catalytic activity/Vol] 186 U/L 45-117 [facility] Work Phone: ALT [Catalytic activity/Vol] 56 U/L 13-56 [facility] Work Phone: CO2 [Moles/Vol] 30.0 mmol/L 21.0-32.0 [facility] Work Phone: Globulin (S) [Mass/Vol] 4.0 g/dL 2.2-4.2 [facility] Work Phone: Urea nitrogen/Creatinine [Mass ratio] 20.0 mg/mg 10-20 [facility] Work Phone: No Panel Informationon 04-11 Estimated GFR (MDRD) Amer 127 mL/min >60 [facility] Work Phone: Comment on above: GFR Calc Estimated GFR (MDRD) Non-Af Amer 105 mL/min >60 [facility] Work Phone: Comment on above: Non- GFR Calc Vitamin D 25-Hydroxy 59.9 ng/mL [facility] Work Phone: Comment on above: Vitamin D 25(OH) Sta tus Range Deficiency <20 ng/mL (50nmol/L) Insufficiency 20 - 30 ng/mL (50 - 75 nmol/L) Sufficiency 30 - 100 ng/mL (75 - 250 nmol/L) Toxicity >100 ng/mL (>250 nmol/L) Serum or plasma albumin seth urement (mass/volume)on 04-11-2022 Albumin [Mass/Vol] 3.5 g/dL 3.2-5.0 [facility] Work Phone: Serum or plasma albumin/glob ulin mass ratioon 04-11-2022 Albumin/Globulin [Mass ratio] 0.9 {ratio} 0.9-2.4 [facility] Work Phone: Serum or plasma calcium seth urement (mass/volume)on 04-11-2022 Calcium [Mass/Vol] 9.1 mg/dL 8.5-10.1 [facility] Work Phone: Serum or plasma creatinine m easurement (mass/volume)on 04-11-2022 Creatinine [Mass/Vol] 0.60 mg/dL 0.55-1.02 [facility] Work Phone: Comment on above: The validity of the calculated GFR & GFRAA in patients over 70 years has not been determined. Clinical correlation is essential. Serum or plasma urea nitroge n measurement (mass/volume)on 04-11-2022 Urea nitrogen [Mass/Vol] 12 mg/dL 7-18 [facility] Work Phone: Thin prep Papanicolaou smear with manual screeningon 04-11-2022 Thin prep Papanicolaou smear with manual screening 131 U/L 15-37 [facility] Work Phone: Thin prep Papanicolaou smear with manual screening 6 5-15 [facility] Work Phone: Absolute lymphocyte counton 03-25-2022 Lymphocytes Auto (Unsp spec) [#/Vol] 1.37 10*3/uL 0.83-4.51 [facility] Work Phone: Basophil percentageon 2021 Basophils/100 WBC (Bld) 1.1 % 0-1 [facility] Work Phone: Bilirubin [Mass/Vol] 1.50 mg/dL 0.20-1.00 [facility] Work Phone: Comment on above: For patients on eltr ombopag therapy, use of [place] TBIL is not recommended. Chloride [Moles/Vol] 88 mmol/L 98-107 [facility] Work Phone: Eosinophils/100 WBC (Bld) 2.5 % 0-5 [facility] Work Phone: Glucose [Mass/Vol] 105 mg/dL 74-106 [facility] Work Phone: Comment on above: Fasting Glucose resu lt from 100 to 125 mg/dL suggests IMPAIRED HOMEOSTASIS per A.D.A. criteria. Neutrophils (Bld) [#/Vol] 3.0 10*3/uL 2.0-7.7 [facility] Work Phone: Neutrophils/100 WBC (Bld) 56.5 % 47-70 [facility] Work Phone: [phone] Potassium [Moles/Vol] 3.7 mmol/L 3.5-5.1 [facility] Work Phone: Protein [Mass/Vol] 8.0 g/dL 6.4-8.2 [facility] Work Phone: [phone] Sodium [Moles/Vol] 129 mmol/L 136-145 [facility] Work Phone: WBC (Bld) [#/Vol] 5.2 10*3/uL 4.4-11.0 [facility] Work Phone: Blood erythrocytes count (nu mber/volume)on 03-25-2022 RBC (Bld) [#/Vol] 4.46 10*6/uL 4.2-5.4 [facility] Work Phone: Blood hemoglobin measurement (mass/volume)on 03-25-2022 Hemoglobin (Bld) [Mass/Vol] 12.7 g/dL 12.0-15.0 [facility] Work Phone: Blood lymphocytes/100 leukoc yteson 03-25-2022 Lymphocytes/100 WBC (Bld) 26.1 % 19-41 [facility] Work Phone: [phone] Blood monocytes/100 leukocyt eson 03-25-2022 Monocytes/100 WBC (Bld) 13.4 % 0-10 [facility] Work Phone: Blood platelet mean volumeon 03-25-2022 Platelet mean volume (Bld) [Entitic vol] 9.0 fL 6.2-12.0 [facility] Work Phone: Determination of erythrocyte mean corpuscular volume (MCV)on 03-25-2022 MCV (RBC) [Entitic vol] 83.4 fL 81-99 [facility] Work Phone: Hematocrit Auto (Bld) [Volum e fraction]on 03-25-2022 Hematocrit (Bld) [Volume fraction] 37.2 % 37-47 [facility] Work Phone: Laboratory - Chemistry and C hemistry - challengeon 03-25-2022 ALP [Catalytic activity/Vol] 164 U/L 45-117 [facility] Work Phone: ALT [Catalytic activity/Vol] 45 U/L 13-56 [facility] Work Phone: CO2 [Moles/Vol] 30.0 mmol/L 21.0-32.0 [facility] Work Phone: Globulin (S) [Mass/Vol] 4.4 g/dL 2.2-4.2 [facility] Work Phone: Urea nitrogen/Creatinine [Mass ratio] 15.3 mg/mg 10-20 [facility] Work Phone: Laboratory - Hematology and Cell countson 03-25-2022 Erythrocyte distribution width (RBC) [Entitic vol] 55.1 fL 35.1-43.9 [facility] Work Phone: Erythrocyte distribution width (RBC) [Ratio] 18.3 % 11.6-14.6 [facility] Work Phone: Immature granulocytes/100 WBC (Bld) 0.400 % 0.0-0.9 [facility] Work Phone: Comment on above: IG% - Immature Granu locytes (promyelocytes, myelocytes and metamyelocytes) > 1% indicates that a LEFT SHIFT is Present. MCH (RBC) [Entitic mass] 28.5 pg 27.0-32.0 [facility] Work Phone: Nucleated RBC/100 WBC (Bld) [Ratio] 0 % 0-5 [facility] Work Phone: MCHC Auto (RBC) [Mass/Vol]on 03-25-2022 MCHC (RBC) [Mass/Vol] 34.1 g/dL 32-36 [facility] Work Phone: No Panel Informationon 03-25 Estimated GFR (MDRD) Amer 130 mL/min >60 [facility] Work Phone: Comment on above: GFR Calc Estimated GFR (MDRD) Non-Af Amer 108 mL/min >60 [facility] Work Phone: Comment on above: Non- GFR Calc Platelets bldon 03-25-2022 Platelets (Bld) [#/Vol] 203 10*3/uL 150-450 [facility] Work Phone: Serum or plasma albumin seth urement (mass/volume)on 03-25-2022 Albumin [Mass/Vol] 3.6 g/dL 3.2-5.0 [facility] Work Phone: Serum or plasma albumin/glob ulin mass ratioon 03-25-2022 Albumin/Globulin [Mass ratio] 0.8 {ratio} 0.9-2.4 [facility] Work Phone: Serum or plasma calcium seth urement (mass/volume)on 03-25-2022 Calcium [Mass/Vol] 9.7 mg/dL 8.5-10.1 [facility] Work Phone: Serum or plasma creatinine m easurement (mass/volume)on 03-25-2022 Creatinine [Mass/Vol] 0.59 mg/dL 0.55-1.02 [facility] Work Phone: Comment on above: The validity of the calculated GFR & GFRAA in patients over 70 years has not been determined. Clinical correlation is essential. Serum or plasma urea nitroge n measurement (mass/volume)on 03-25-2022 Urea nitrogen [Mass/Vol] 9 mg/dL 7-18 [facility] Work Phone: Thin prep Papanicolaou smear with manual screeningon 03-25-2022 Thin prep Papanicolaou smear with manual screening 113 U/L 15-37 [facility] Work Phone: Thin prep Papanicolaou smear with manual screening 11 5-15 [facility] Work Phone: CBC WITH AUTO DIFFon 021 BASO, ABSOLUTE (AUTO) 0.1 10 3/uL Normal 0.0-0.2 [facility] Comment on above: Performed By: #### C MP, CPK 1, CBC, TROP 1 #### Main Lab - [facility] [address] [place] [address] Basophils/100 WBC (Bld) 1.4 % High 0.0-1.0 [facility] Comment on above: Performed By: #### C MP, CPK 1, CBC, TROP 1 #### Main Lab - [facility] [address] EOSINOPHILS, ABSOLUTE (AUTO) 0.1 10 3/uL Normal 0.0-0.7 [facility] Comment on above: Performed By: #### C MP, CPK 1, CBC, TROP 1 #### Main Lab - [facility] [address] Eosinophils/100 WBC (Bld) 1.1 % Normal 0.0-5.0 [facility] Comment on above: Performed By: #### C MP, CPK 1, CBC, TROP 1 #### Main Lab - [facility] [address] [place] [address] Erythrocyte distribution width (RBC) [Ratio] 14.4 % High 11.5-14.0 [facility] Comment on above: Performed By: #### C MP, CPK 1, CBC, TROP 1 #### Main Lab - [facility] [address] [place] [address] Hematocrit (Bld) [Volume fraction] 32.4 % Low 34.8-45.0 [facility] Comment on above: Performed By: #### C MP, CPK 1, CBC, TROP 1 #### Main Lab - [facility] [address] [place], [place] [address] Hemoglobin (Bld) [Mass/Vol] 11.4 g/dL Low 11.6-14.9 [facility] Comment on above: Performed By: #### C MP, CPK 1, CBC, TROP 1 #### [facility] - [address] [address] LYMPHOCYTES, ABSOLUTE (AUTO) 1.2 10 3/uL Normal 1.0-3.5 [facility] Comment on above: Performed By: #### C MP, CPK 1, CBC, TROP 1 #### [facility] - [address] [address] Lymphocytes/100 WBC (Bld) 18.4 % Low 24.0-44.0 [facility] Comment on above: Performed By: #### C MP, CPK 1, CBC, TROP 1 #### [facility] - [address] [address] MCH (RBC) [Entitic mass] 36.4 pg High 27.0-31.0 [facility] Comment on above: Performed By: #### C MP, CPK 1, CBC, TROP 1 #### [facility] - [address] [address] MCHC (RBC) [Mass/Vol] 35.1 g/dL Normal 32.0-36.0 [facility] Comment on above: Performed By: #### C MP, CPK 1, CBC, TROP 1 #### [facility] - [address] [address] MCV (RBC) [Entitic vol] 103.6 fL High 78.0-100.0 [facility] Comment on above: Performed By: #### C MP, CPK 1, CBC, TROP 1 #### [address] [address] MONOCYTES, ABSOLUTE (AUTO) 0.7 10 3/uL Normal 0.2-0.8 [facility] Comment on above: Performed By: #### C MP, CPK 1, CBC, TROP 1 #### [facility] - [address] [address] Monocytes/100 WBC (Bld) 10.5 % High 1.7-9.3 [facility] Comment on above: Performed By: #### C MP, CPK 1, CBC, TROP 1 #### [facility] - [address] [address] NEUTROPHILS, ABSOLUTE (AUTO) 4.3 10 3/uL Normal 1.5-6.7 [facility] Comment on above: Performed By: #### C MP, CPK 1, CBC, TROP 1 #### [facility] - [address] [address] Neutrophils/100 WBC (Bld) 68.6 % High 36.0-66.0 [facility] Comment on above: Performed By: #### C MP, CPK 1, CBC, TROP 1 #### Main Lab - [address] [address] PLATELET COUNT 163 10 3/uL Normal 150-450 [facility] Comment on above: Performed By: #### C MP, CPK 1, CBC, TROP 1 #### [facility] - [address] [address] Platelet mean volume (Bld) [Entitic vol] 7.2 fL Normal 6.0-9.5 [facility] Comment on above: Performed By: #### C MP, CPK 1, CBC, TROP 1 #### [facility] - [address] [address] RED BLOOD COUNT 3.13 x10 6/uL Low 3.89-5.30 [facility] Comment on above: Performed By: #### C MP, CPK 1, CBC, TROP 1 #### [facility] - [address] [address] WHITE BLOOD COUNT 6.3 10 3/uL Normal 4.0-10.5 [facility] Comment on above: Performed By: #### C MP, CPK 1, CBC, TROP 1 #### Main Lab - [address] [address] COMPREHENSIVE METABOLIC PANE Satinder 05-05-2021 Albumin [Mass/Vol] 3.5 g/dL Low 3.9-5.0 [facility] Comment on above: Performed By: #### C MP, CPK 1, CBC, TROP 1 #### Main Lab - [facility] [address] [place], [place] [address] Albumin/Globulin [Mass ratio] 1.0 {ratio} Low 1.1-1.8 [facility] Comment on above: Performed By: #### C MP, CPK 1, CBC, TROP 1 #### Main Lab - [facility] [address] [place], [place] [address] ALP [Catalytic activity/Vol] 122 U/L Normal 43-122 [facility] Comment on above: Performed By: #### C MP, CPK 1, CBC, TROP 1 #### Main Lab - [facility] [address] [place] [address] ALT [Catalytic activity/Vol] 25 U/L Normal 7-56 [facility] Comment on above: Performed By: #### C MP, CPK 1, CBC, TROP 1 #### Main Lab - [facility] [address] [place] [address] Anion gap [Moles/Vol] 16 mmol/L Normal 9-18 [facility] Comment on above: Performed By: #### C MP, CPK 1, CBC, TROP 1 #### Main [facility] - [facility] [address] [place] [address] AST [Catalytic activity/Vol] 44 U/L High 8-39 [facility] Comment on above: Performed By: #### C MP, CPK 1, CBC, TROP 1 #### Main Lab - [facility] [address] [place] [address] Bilirubin [Mass/Vol] 1.7 mg/dL High 0.2-1.3 [facility] Comment on above: Performed By: #### C MP, CPK 1, CBC, TROP 1 #### Main Lab - [facility] [address] [place] [address] BUN/CREATININE RATIO 21.3 Ratio Normal 5.0-42.0 [facility] Comment on above: Performed By: #### C MP, CPK 1, CBC, TROP 1 #### Main Lab - [facility] [address] [place] [address] Calcium [Mass/Vol] 9.2 mg/dL Normal 8.4-10.2 [facility] Comment on above: Performed By: #### C MP, CPK 1, CBC, TROP 1 #### [facility] [place] [place] [address] Chloride [Moles/Vol] 94 mmol/L Low 98-107 [facility] Comment on above: Performed By: #### C MP, CPK 1, CBC, TROP 1 #### Main Lab - [address] [address] CO2 [Moles/Vol] 25 mmol/L Normal 22-31 [facility] Comment on above: Performed By: #### C MP, CPK 1, CBC, TROP 1 #### Main Lab - [address] [address] Creatinine [Mass/Vol] 0.61 mg/dL Low 0.80-1.30 [facility] Comment on above: Performed By: #### C MP, CPK 1, CBC, TROP 1 #### [facility] - [address] [address] ESTIMATED CREAT CLEARANCE 78.32 Normal [facility] Comment on above: Result Comment: COCK CROFT-GAULT FORMULA 1972 Performed By: #### C MP, CPK 1, CBC, TROP 1 #### Main Lab - [address] [address] ESTIMATED GLOMERULAR FILT RATE > 60.000 Normal [facility] Comment on above: Performed By: #### C MP, CPK 1, CBC, TROP 1 #### Main Lab - [address] [address] Globulin (S) [Mass/Vol] 3.5 g/dL Normal [facility] Comment on above: Performed By: #### C MP, CPK 1, CBC, TROP 1 #### Main Lab - [address] [address] Glucose [Mass/Vol] 95 mg/dL Normal 70-99 [facility] Comment on above: Result Comment: The glucose range is based on recommendations from the [place] [employer] for fasting blood glucose range. Performed By: #### C MP, CPK 1, CBC, TROP 1 #### Main Lab - [facility] [place], [place] [address] Potassium [Moles/Vol] 3.7 mmol/L Normal 3.6-5.0 [facility] Comment on above: Performed By: #### C MP, CPK 1, CBC, TROP 1 #### Main Lab - [facility] [address] [place], [place] [address] Protein [Mass/Vol] 7.0 g/dL Normal 6.3-8.2 [facility] Comment on above: Performed By: #### C MP, CPK 1, CBC, TROP 1 #### Main Lab - [facility] [place], [place] [address] Sodium [Moles/Vol] 131 mmol/L Low 137-145 [facility] Comment on above: Performed By: #### C MP, CPK 1, CBC, TROP 1 #### Main Lab - [facility] [address] [place] [address] Urea nitrogen [Mass/Vol] 13 mg/dL Normal 7-21 [facility] Comment on above: Performed By: #### C MP, CPK 1, CBC, TROP 1 #### Main Lab - [facility] [address] [place] [address] AGE,PATIENT 70 Years Normal [facility] Comment on above: Performed By: #### C MP, CPK 1, CBC, TROP 1 #### Main Lab - [facility] [address] [place] [address] CREATINE KINASEon 05-05-2021 CK [Catalytic activity/Vol] 31 U/L Low 55-170 [facility] Comment on above: Performed By: #### C MP, CPK 1, CBC, TROP 1 #### Main Lab - [facility] [address] [place] [address] HEAD W/O CONTRASTon 05-05 CT HEAD W/O CONTRAST [facility] [address] [place] [address] Diagnostic Imaging Report : [id number] Signed Name: MARY ALICE GA MRUN: [id number] : 1950 Loc: ED Age / Sex: 70 / F ADM Status: REG ER ADM Date: 05/05/21 Room/Bed: Ordering Physician: Isaiah Bhakta PA-C Procedure: CT HEAD W/O CONTRAST Order Number(s): [id number] Ordered Date: 05/05/21 Ordered Time: 1241 EXAMINATION: [...] by the neurologic exam. . Dictated By: Curry ARAUJO, Dipak Tran Dictated Date/Time: 05/05/21 1322 Signed By: Dipak Zapien MD, MD Signed Date/Time: 05/05/21 1331 Transcribed Date/Time: 05/05/21 1327 Normal [facility] ED Physician Documentationon 05-05-2021 ED Physician Documentation [address] [place] [address] Physician Documentation Signed: Name: MARY ALICE GA MRUN: [id number] : 1950 Loc: ED Age / Sex: [...] years ago Additional surgical history details: EGD 2017 Past genitourinary history: Negative Past Genitourinary surgeries/treatments: [...] Lymphadenopathy, Me (more content not included)... Normal [facility] TROPONIN Ion 05-05-2021 Troponin I.cardiac [Mass/Vol] ng/mL Normal 0.0-0.03 [facility] Comment on above: Result Comment: Refe rence Interval < or = 0.03 ng/mL Clinical Correlation Needed 0.03 - 0.11 ng/mL AMI Cutoff, Presumptive = or > 0.12 ng/mL Performed By: #### C MP, CPK 1, CBC, TROP 1 #### Main Lab - [facility] [address] [place], [place] [id number] Waveform Imaging Reporton Waveform Imaging Report [facility] [address] [place] [address] Waveform Imaging Report : [id number] Signed Name: MARY ALICE GA MRUN: [id number] : 1950 Loc: ED Age / Sex: 70 / F ADM Status: DEP ER ADM Date: 05/05/21 Room/Bed: Ordering Physician: Isaiah Bhakta PA-C Procedure: EKG Order Number(s): [id number] Ordered Date: 05/05/21 Ordered Time: 1242 Test Date: 2021-05-05 12:52:46 Pat Name: MARY ALICE GA Department: ED Room: Gender: F 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: : 1950 Requested By: Isaiah Hughes Order Number: [id number] Reading MD: Shaq Lal Measurements Intervals Clyde Rate: 63 P: 24 MT: 164 QRS: 13 QRSD: 92 T: 38 QT: 466 QTc: 478 Interpretive Statements Heart Rate: 63 MT Interval: 164 QRS Duration: 92 QT Interval: 466 QTc: 478 Interpretation: Sinus arrhythmia normal MT interval, normal QRS, normal QTC, normal axis, nonspecific ST changes, no STEMI Electronically Signed On 05-05-2021 19:06:10 EDT by Shaq Lal Dictated By: Shaq Lal MD Dictated Date/Time: 05/05/21 1252 Signed By: Shaq Lal MD, MD Signed Date/Time: 05/05/21 190 Transcribed Date/Time: Normal [facility] XR SACRUM/COCCYXon XR SACRUM/COCCYX [facility] [address] [place] [address] Diagnostic Imaging Report : [id number] Signed Name: MARY ALICE GA MRUN: [id number] : 1950 Loc: ED Age / Sex: 70 / F ADM Status: REG ER ADM Date: 05/05/21 Room/Bed: Ordering Physician: Isaiah Bhakta PA-C Procedure: XR SACRUM/COCCYX Order Number(s): [id number] Ordered Date: 05/05/21 Ordered Time: 1341 EXAMINATION: THREE XRAY VIEWS OF THE SACRO-ILIAC [...] 05/05/21 1423 Transcribed Date/Time: 05/05/21 1420 Normal [facility] CHL SCREEN MAMMO DIG W/ZANA BIon 06-25-2020 CHL SCREEN MAMMO DIG W/ZANA BI [facility] [address] [place] [address] Diagnostic Imaging Report : [id number] Signed Name: MARY ALICE GA MRUN: [id number] : 1950 Loc: CHL Age / Sex: 69 / F ADM Status: REG CLI ADM Date: 06/25/20 Room/Bed: Ordering Physician: Delores Faria MD Procedure: CHL SCREEN MAMMO DIG W/ZANA BI Order Number(s): [id number] Ordered Date: 06/25/20 Ordered Time: 0803 EXAMINATION: [...] 2D - BENIGN FINDINGS, DENSE BREASTS DISCLAIMER: [employer] Recommendations for Breast Cancer [...] 06/25/20 1353 Transcribed Date/Time: 06/25/20 1349 Normal [facility] WOUND CULTUREon 01-14-2020 WOUND CULTURE SPARSE GROWTH PMN'S 1+ GRAM POSITIVE COCCI IN PAIRS pseaer 2+ gnr 2+ Normal [facility] Comment on above: Order Comment: Site: right leg Performed By: #### 4 [id number] #### [employer] [place] [address] WOUND CULTUREon 12-23-2019 WOUND CULTURE SPARSE GROWTH NO ORGANISMS SEEN pseaer 1+ Normal [facility] Comment on above: Order Comment: Site: right lower leg Performed By: #### 4 [id number] #### [address] [address] Annabelle 07-05-2019 CNPN Telephone (RHBATH) -- MARY ALICE GA ([id number]) 1950 F CHT Date Time Provider Department 07/05/19 REBECCA LEI [...] by CITLALI JEROME CMA on 07/05/19 Normal [facility] CCP Antibody, IgGon 06-10-20 19 CCP Antibody, IgG <15 Normal <20 [facility] Comment on above: Result Comment: < 20 units: Negative 20-39 units: Weak Positive 40-59 units: Moderate Positive > 60 units: Strong Positive The following results were obtained with the [employer] QUANTA Lite CCP3 IgG ADDIE. Anti-CCP values obtained with different manufacturers' assay methods may not be used interchangeably. The magnitude of the reported IgG levels cannot be correlated to an endpoint titer. Performing Laboratory: [facility] [employer] [place] [address] Performed By: #### C CPX #### [place] [address] Hep B Core Ab,Totalon 2018 Hep B Core Ab,Total Negative Normal NEGAT [facility] Comment on above: Result Comment: Perf orming Laboratory: [facility] [employer] [address] [place] [address] Performed By: #### H BCTX #### [place] [address] Quantiferon (Rapd TB)on Quantiferon (Rapd TB) SEE BELOW Normal [facility] Comment on above: Result Comment: TB N IL 0.04 IU/mL TB1 Ag minus Nil 0.00 <0.35 IU/mL TB2 Ag minus Nil 0.00 <0.35 IU/mL Mitogen minus Nil >10 TB Result Negative NEGAT Interpretation SEE BELOW No evidence of current or previous infection with Mycobacterium tuberculosis. Performing Laboratory: [facility] [place] [address] Performed By: #### Q UANX #### [facility] [address] [place] [address] Hep. B Surface Abon 06-06-20 19 Hep. B Surface Ab 68.6 mIU/mL Normal [facility] Comment on above: Result Comment: Hep B. Antibody < 10.0 mIU/mL is negative. Hep B. Antibody > or = 10.0 mIU/mL is positive. Performed By: #### A NTB #### [facility] [address] [place] [address] Hep. B Surface Agon 06-06-20 Hep.B Surface Ag Negative Normal Negative [facility] Comment on above: Performed By: #### H BSAG #### [facility] [address] [place] [address] Hepatitis C Antibodyon 06-06 Hepatitis C Ab Negative Normal Negative [facility] Comment on above: Performed By: #### H CVAB #### [place] [address] Total 25-OH Vitamin Don 10-0 Total 25-OH Vitamin D 33.2 ng/mL Normal 30.0-100.0 [facility] Comment on above: Performed By: #### 2 5VD1 #### [place] [address] CNOVon 06-05-2019 CNOV Office Visit (RHBATH ) -- MARY ALICE GA ([id number]) 1950 F T Date Time Provider Department 06/05/19 10:20 AM REBECCA LEI RHBJOHN During your visit today, we [...] level: Not on file Occupational History Occupation: T[employer] Employer: [employer] 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 [...] file Gets together: Not on file Attends latter-day service: Not on file Active member of [...] on file Occupation: Employer And Job Title: [employer] ([employer]) Years Of Education Completed: Not specified Marital [...] MUSCULOSKELETAL: DIPS: Abnormal, Heberden's nodes PIPS: Abnormal, Nashu's nodes MCPs: Abnormal, hypertrophied, ulnar deviation Wrists: [...] Rebecca Lei MD Referring Provider: ABDIRAHMAN CONLEY [[id number]] Allergies As of Date: 06/05/2019 Noted Allergy [...] [M15.0] Order(s):CCP ANTIBODY IGG [SQCCP] Order #: [id number] FUTURE HEP B SURF AG SCRN [SQHBSAG] Order #: [id number] FUTURE HEP B SURF AB QUANT [SQAHBSQ] Order #: [id number] FUTURE HEP C AB IA BLOOD [SQAHCV] Order #: [id number] FUTURE HEP B CORE AB TOTAL [SQAHBCOT] Order #: [id number] FUTURE BLOOD TB SCREEN, INCUBATED [SQINTPGP] Order #: [id number] FUTURE VITAMIN D 25 HYDROXY [SQVITD] Order #: [id number] FUTURE XR HAND GENERAL 3V PA/LAT/OBL LT [4840659] Order #: [id number] FUTURE XR HAND GENERAL 3V PA/LAT/OBL RT [3324020] Order #: [id number] FUTURE US HAND/WRIST SYNOVIAL SCREEN RT [4977248] Order #: [id number] FUTURE US HAND/WRIST SYNOVIAL SCREEN LT [7610629] Order #: [id number] FUTURE CONSULT TO PHYSICAL THERAPY (AG) [4386094] Order #: [id number]: 1 Prescriptions as of 06/05/2019 Sig: NADOLOL [...] REBECCA LEI MD on 06/05/19 [facility] PROGRESSon 06-05-2019 PROGRESS HNO ID: [id number] Author: Rebecca Lei Service: ? 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 Rebecca Lei MD [facility] XR HAND 3V PA/LAT/OBL LTon 1 [...] correlation is recommended. Osteoarthritis is also noted. [employer]: PSCB Transcribe Date/Time: Jun 06 2019 1:12P Dictated by : OTTO FLOR MD This examination was interpreted and the report reviewed and electronically signed by: OTTO FLOR MD on Jun 06 2019 1:14PM [facility] XR HAND 3V PA/LAT/OBL RTon 1 XR [...] correlation is recommended. Osteoarthritis is also noted. [employer] Servicer: ABDIEL Transcribe Date/Time: Jun 06 2019 1:12P Dictated by : OTTO FLOR MD This examination was interpreted and the report reviewed and electronically signed by: OTTO FLOR MD on Jun 06 2019 1:14PM EST Normal [facility] HISTORY PHYSICALon HISTORY PHYSICAL HNO ID: [id number] thor: Lili Bates: GastroenterologyAuthor Type: PhysicianType: HANDPFiled: [...] August 16, 2017 : 8:51 AM PAGER: [id number] [facility] PT EDon 08-16-2017 PT ED HNO ID: [id number] thor: RANDY Aburto Rnervice: NursingAuthor Type: Registered NurseType: Patient EducationFiled: 08/16/2017 10:09 AMNote Text:POST OP LEARNING RESPONSEINSTRUCTION PROVIDED TO: Patient and family memberMETHOD OF INSTRUCTION: Written instruction - handoutsVerbal instructionPATIENT / FAMILY RESPONSE: Verbalizes understanding of: POST-OPERATIVEINSTRUCTIONS -Correct actions to take to reduce postoperative complicationsFOLLOW-UP PLAN: Complete - No need for follow-upSUPPLEMENTAL MATERIAL: NoneREFERRAL (RECOMMENDATION): NoneElectronically Signed By: Min Jim RN In Department: [facility] ENDOSCOPY [facility] PT ED HNO ID: [id number] thor: Liseth (Rn) Pako, RNService: NursingAuthor Type: Registered NurseType: Patient EducationFiled: 08/16/2017 8:52 AMNote Text:PRE OP LEARNING ASSESSMENTPROCEDURE/SURGER Y: GI PROCEDURES: EGDREADINESS TO LEARNCOGNITIVE ABILITY: Alert and orientedMOTIVATION TO LEARN: InterestedFAMILY SUPPORT: High - Very involved in pt carePATIENT LEARNS BEST BY: Written Instruction - Hand-outsFACTORS AFFECTING LEARNING: NonePHYSICAL LIMITATIONS AFFECTING LEARNING: NoneElectronically Signed By: Liseth Min, RN In Department: [facility] ENDOSCOPY [facility] SURGICAL PATHOLOGYon 017 SURGICAL PATHOLOGY Specimen #: [id number] Physician: LILI ALVAREZ M.D. FINAL DIAGNOSISStomach, antrum, [...] submitted in one cassette.Gross examination performed at [facility], [address] [place] [address] 08/16/2017 7:27:12 PMPatient ID #: [id number] of Report: 08/17/2017Date of Procedure: 08/16/2017Date of Receipt: 08/16/2017Submitted by: LILI ALVAREZ M.D.Location: MMMMENDDiagnostic interpretation performed at [facility], [address] [place] [address]. [facility] HOSPon 07-07-2017 HOSP Patient:Iris Ga FMRN: Height:5' [...] notes entered within the past 30 days [facility] Bacteria identified Anaer cx Nom (Unsp spec) Anaerobic microbial culture No anaerobic bacteria isolated. [facility] Work Phone: Bacteria identified Cx Nom ( Wound) Wound Culture Staphylococcus epidermidis [facility] Work Phone: Wound Culture Negative [facility] Work Phone: Gram stain for investigation of transfusion reaction Microscopic observation Gram stain Nom (Unsp spec) [facility] Work Phone: Vital Signs Date Time Vital Sign Value Performing Clinician Silas aldana 05-21-2025 08:10-0400 Body height 162.[address] Khanh Rodriguez MD Work Phone: [facility] 05-21-2025 08:10-0400 Body mass index (BMI) [Ratio] 23.1 kg/m2 Dr. Khanh Rodriguez MD Work Phone: [facility] 05-21-2025 08:10-0400 Body temperature 97.6 [degF] Dr. Khanh Rodriguez MD Work Phone: [facility] 05-21-2025 08:10-0400 Body weight 61.[address] Khanh Rodriguez MD Work Phone: [facility] 05-21-2025 08:10-0400 Diastolic blood pressure 64 mm[Hg] Dr. Khanh Rodriguez MD Work Phone: [facility] 05-21-2025 08:10-0400 Heart rate 75 /min Dr. Khanh Rodriguez MD Work Phone: [facility] 05-21-2025 08:10-0400 Respiratory rate 16 /min Dr. Khanh Rodriguez MD Work Phone: [facility] 05-21-2025 08:10-0400 SaO2% (BldA) [Mass fraction] 100 % Dr. Khanh Rodriguez MD Work Phone: [facility] 05-21-2025 08:10-0400 Systolic blood pressure 104 mm[Hg] Dr. Khanh Rodriguez MD Work Phone: [facility] 05-08-2025 13:08-0400 Body height 154.[address] Khanh Rodriguez MD Work Phone: [facility] 05-08-2025 13:08-0400 Body mass index (BMI) [Ratio] 25.2 kg/m2 Dr. Khanh Rodriguez MD Work Phone: [facility] 05-08-2025 13:08-0400 Body weight 60.[address] Khanh Rodriguez MD Work Phone: [facility] 04-29-2025 12:50-0400 Body height 154.[address] Khanh Rodriguez MD Work Phone: [facility] 04-29-2025 12:50-0400 Body temperature 96.8 [degF] Dr. Khanh Rodriguez MD Work Phone: [facility] 04-29-2025 12:50-0400 Diastolic blood pressure 66 mm[Hg] Dr. Khanh Rodriguez MD Work Phone: [facility] 04-29-2025 12:50-0400 Heart rate 63 /min Dr. Khanh Rodriguez MD Work Phone: [facility] 04-29-2025 12:50-0400 Respiratory rate 18 /min Dr. Khanh Rodriguez MD Work Phone: [facility] 04-29-2025 12:50-0400 SaO2% (BldA) [Mass fraction] 97 % Dr. Khanh Rodriguez MD Work Phone: [facility] 04-29-2025 12:50-0400 Systolic blood pressure 128 mm[Hg] Dr. Khanh Rodriguez MD Work Phone: [facility] 04-25-2025 13:01-0400 Body height 154.[address] Khanh Rodriguez MD Work Phone: [facility] 04-25-2025 13:01-0400 Body mass index (BMI) [Ratio] 24.5 kg/m2 Dr. Khanh Rodriguez MD Work Phone: [facility] 04-25-2025 13:01-0400 Body temperature 97.2 [degF] Dr. Khanh Rodriguez MD Work Phone: [facility] 04-25-2025 13:01-0400 Body weight 58.[address] Khanh Rodriguez MD Work Phone: [facility] 04-25-2025 13:01-0400 Diastolic blood pressure 57 mm[Hg] Dr. Khanh Rodriguez MD Work Phone: [facility] 04-25-2025 13:01-0400 Heart rate 70 /min Dr. Khanh Rodriguez MD Work Phone: [facility] 04-25-2025 13:01-0400 Respiratory rate 16 /min Dr. Khanh Rodriguez MD Work Phone: [facility] 04-25-2025 13:01-0400 SaO2% (BldA) [Mass fraction] 99 % Dr. Khanh Rodriguez MD Work Phone: [facility] 04-25-2025 13:01-0400 Systolic blood pressure 103 mm[Hg] Dr. Khanh Rodriguez MD Work Phone: [facility] 03-28-2025 12:14-0400 Body height 154.[address] Khanh Rodriguez MD Work Phone: [facility] 03-28-2025 12:14-0400 Body mass index (BMI) [Ratio] 25.4 kg/m2 Dr. Khanh Rodriguez MD Work Phone: [facility] 03-28-2025 12:14-0400 Body temperature 97.1 [degF] Dr. Khanh Rodriguez MD Work Phone: [facility] 03-28-2025 12:14-0400 Body weight 61.[address] Khanh Rodriguez MD Work Phone: [facility] 03-28-2025 12:14-0400 Diastolic blood pressure 60 mm[Hg] Dr. Khanh Rodriguez MD Work Phone: [facility] 03-28-2025 12:14-0400 Heart rate 62 /min Dr. Khanh Rodriguez MD Work Phone: [facility] 03-28-2025 12:14-0400 Respiratory rate 16 /min Dr. Khanh Rodriguez MD Work Phone: [facility] 03-28-2025 12:14-0400 SaO2% (BldA) [Mass fraction] 99 % Dr. Khanh Rodriguez MD Work Phone: [facility] 03-28-2025 12:14-0400 Systolic blood pressure 122 mm[Hg] Dr. Khanh Rodriguez MD Work Phone: [facility] 02-28-2025 12:14-0400 Body height 154.[address] Khanh Rodriguez MD Work Phone: [facility] 02-28-2025 12:14-0400 Body mass index (BMI) [Ratio] 25.4 kg/m2 Dr. Khanh Rodriguez MD Work Phone: [facility] 02-28-2025 12:14-0400 Body temperature 96.7 [degF] Dr. Khanh Rodriguez MD Work Phone: [facility] 02-28-2025 12:14-0400 Body weight 61.[address] Khanh Rodriguez MD Work Phone: [facility] 02-28-2025 12:14-0400 Diastolic blood pressure 48 mm[Hg] Dr. Khanh Rodriguez MD Work Phone: [facility] 02-28-2025 12:14-0400 Heart rate 66 /min Dr. Khanh Rodriguez MD Work Phone: [facility] 02-28-2025 12:14-0400 Respiratory rate 16 /min Dr. Khanh Rodriguez MD Work Phone: [facility] 02-28-2025 12:14-0400 SaO2% (BldA) [Mass fraction] 98 % Dr. Khanh Rodriguez MD Work Phone: [facility] 02-28-2025 12:14-0400 Systolic blood pressure 113 mm[Hg] Dr. Khanh Rodriguez MD Work Phone: [facility] 02-25-2025 14:33-0400 Body temperature 98.1 [degF] Nayan Blackmon MD Work Phone: [facility] 02-25-2025 14:33-0400 Diastolic blood pressure 63 mm[Hg] Nayan Blackmon MD Work Phone: [facility] 02-25-2025 14:33-0400 Heart rate 59 /min Nayan Blackmon MD Work Phone: [facility] 02-25-2025 14:33-0400 SaO2% (BldA) [Mass fraction] 99 % Nayan Blackmon MD Work Phone: [facility] 02-25-2025 14:33-0400 Systolic blood pressure 131 mm[Hg] Nayan Blackmon MD Work Phone: [facility] 02-18-2025 15:50-0400 Diastolic blood pressure 52 mm[Hg] [facility] Work Phone: [facility] 02-18-2025 15:50-0400 Heart rate 70 /min [facility] Work Phone: [facility] 02-18-2025 15:50-0400 Respiratory rate 18 /min [facility] Work Phone: [facility] 02-18-2025 15:50-0400 SaO2% (BldA) [Mass fraction] 98 % [facility] Work Phone: [facility] 02-18-2025 15:50-0400 Systolic blood pressure 118 mm[Hg] [facility] Work Phone: [facility] 02-18-2025 14:30-0400 Body temperature 96.6 [degF] [facility] Work Phone: [facility] 02-11-2025 15:31-0400 Body mass index (BMI) [Ratio] 29.94 kg/m2 Nayan Blackmon MD Work Phone: [facility] 02-11-2025 15:31-0400 Body temperature 97.7 [degF] Nayan Blackmon MD Work Phone: [facility] 02-11-2025 15:31-0400 Body weight 74.25 kg Nayan Blackmon MD Work Phone: [facility] 02-11-2025 15:31-0400 Diastolic blood pressure 66 mm[Hg] Nayan Blackmon MD Work Phone: [facility] 02-11-2025 15:31-0400 Heart rate 68 /min Nayan Blackmon MD Work Phone: [facility] 02-11-2025 15:31-0400 Respiratory rate 20 /min Nayan Blackmon MD Work Phone: [facility] 02-11-2025 15:31-0400 SaO2% (BldA) [Mass fraction] 98 % Nayan Blackmon MD Work Phone: [facility] 02-11-2025 15:31-0400 Systolic blood pressure 117 mm[Hg] Nayan Blackmon MD Work Phone: [facility] 01-31-2025 11:07-0400 Body height 154.[address] Khanh Rodriguez MD Work Phone: [facility] 01-31-2025 11:07-0400 Body mass index (BMI) [Ratio] 25.3 kg/m2 Dr. Khanh Rodriguez MD Work Phone: [facility] 01-31-2025 11:07-0400 Body temperature 96.9 [degF] Dr. Khanh oRdriguez MD Work Phone: [facility] 01-31-2025 11:07-0400 Body weight 60.[address] Khanh Rodriguez MD Work Phone: [facility] 01-31-2025 11:07-0400 Diastolic blood pressure 70 mm[Hg] Dr. Khanh Rodriguez MD Work Phone: [facility] 01-31-2025 11:07-0400 Heart rate 70 /min Dr. Khanh Rodriguez MD Work Phone: [facility] 01-31-2025 11:07-0400 Respiratory rate 16 /min Dr. Khanh Rodriguez MD Work Phone: [facility] 01-31-2025 11:07-0400 SaO2% (BldA) [Mass fraction] 100 % Dr. Khanh Rodriguez MD Work Phone: [facility] 01-31-2025 11:07-0400 Systolic blood pressure 123 mm[Hg] Dr. Khanh Rodriguez MD Work Phone: [facility] 01-23-2025 13:22-0400 Body temperature 98.2 [degF] Dr. Khanh Rodriguez MD Work Phone: [facility] 01-23-2025 13:22-0400 Diastolic blood pressure 66 mm[Hg] Dr. Khanh Rodriguez MD Work Phone: [facility] 01-23-2025 13:22-0400 Heart rate 66 /min Dr. Khanh Rodriguez MD Work Phone: [facility] 01-23-2025 13:22-0400 Respiratory rate 16 /min Dr. Khanh Rodriguez MD Work Phone: [facility] 01-23-2025 13:22-0400 SaO2% (BldA) [Mass fraction] 96 % Dr. Khanh Rodriguez MD Work Phone: [facility] 01-23-2025 13:22-0400 Systolic blood pressure 119 mm[Hg] Dr. Khanh Rodriguez MD Work Phone: [facility] 01-22-2025 11:52-0400 Body height 157.[address] Khanh Rodriguez MD Work Phone: [facility] 01-22-2025 11:52-0400 Body mass index (BMI) [Ratio] 26.3 kg/m2 Dr. Khanh Rodriguez MD Work Phone: [facility] 01-22-2025 11:52-0400 Body temperature 97.2 [degF] Dr. Khanh Rodriguez MD Work Phone: [facility] 01-22-2025 11:52-0400 Body weight 65.[address] Khanh Rodriguez MD Work Phone: [facility] 01-22-2025 11:52-0400 Diastolic blood pressure 60 mm[Hg] Dr. Khanh Rodriguez MD Work Phone: [facility] 01-22-2025 11:52-0400 Heart rate 64 /min Dr. Khanh Rodriguez MD Work Phone: [facility] 01-22-2025 11:52-0400 Respiratory rate 16 /min Dr. Khanh Rodriguez MD Work Phone: [facility] 01-22-2025 11:52-0400 SaO2% (BldA) [Mass fraction] 95 % Dr. Khanh Rodriguez MD Work Phone: [facility] 01-22-2025 11:52-0400 Systolic blood pressure 110 mm[Hg] Dr. Khanh Rodriguez MD Work Phone: [facility] 06-17-2024 14:11-0400 Body weight 65.[address] Khanh Rodriguez MD Work Phone: [facility] 06-12-2024 10:30-0400 Body height 157.5 cm Monse MARQUEZ-C Work Phone: [facility] 06-12-2024 10:30-0400 Body mass index (BMI) [Ratio] 27.82 kg/m2 Monse Merlos PA-C Work Phone: [facility] 06-12-2024 10:30-0400 Body weight 69 kg Monse Merlos PA-C Work Phone: [facility] 06-12-2024 10:30-0400 Diastolic blood pressure 63 mm[Hg] Monse MARQUEZ-C Work Phone: [facility] 06-12-2024 10:30-0400 Heart rate 52 /min Monse MARQUEZ-C Work Phone: [facility] 06-12-2024 10:30-0400 SaO2% (BldA) [Mass fraction] 99 % Monse MARQUEZ-C Work Phone: [facility] 06-12-2024 10:30-0400 Systolic blood pressure 126 mm[Hg] Monse Merlos PA-C Work Phone: [facility] 04-23-2024 10:38-0400 Diastolic blood pressure 68 mm[Hg] Gt Yin DO Work Phone: [facility] 04-23-2024 10:38-0400 Heart rate 59 /min Gt Yin DO Work Phone: [facility] 04-23-2024 10:38-0400 SaO2% (BldA) [Mass fraction] 100 % Gt Yin DO Work Phone: [facility] 04-23-2024 10:38-0400 Systolic blood pressure 126 mm[Hg] Gt Yni DO Work Phone: [facility] 04-02-2024 13:11-0400 Body height 157.5 cm Marisela Mccarty MD Work Phone: [facility] 04-02-2024 13:11-0400 Body mass index (BMI) [Ratio] 27.82 kg/m2 Marisela Mccarty MD Work Phone: [facility] 04-02-2024 13:11-0400 Body weight 69 kg Marisela Mccarty MD Work Phone: [facility] 02-27-2024 08:46-0400 Diastolic blood pressure 66 mm[Hg] Gt Yin DO Work Phone: [facility] 02-27-2024 08:46-0400 Heart rate 61 /min Gt Yin DO Work Phone: [facility] 02-27-2024 08:46-0400 SaO2% (BldA) [Mass fraction] 99 % Gt Yin DO Work Phone: [facility] 02-27-2024 08:46-0400 Systolic blood pressure 128 mm[Hg] Gt Yin DO Work Phone: [facility] 01-05-2024 10:10-0400 Body height 162.[address] Khanh Rodriguez Work Phone: [facility] 01-05-2024 10:10-0400 Body mass index (BMI) [Ratio] 26.1 kg/m2 Dr. Khanh Rodriguez Work Phone: [facility] 01-05-2024 10:10-0400 Body temperature 97.1 [degF] Dr. Khanh Rodriguez Work Phone: [facility] 01-05-2024 10:10-0400 Body weight 68.[address] Khanh Rodriguez Work Phone: [facility] 01-05-2024 10:10-0400 Diastolic blood pressure 68 mm[Hg] Dr. Khanh Rodriguez Work Phone: [facility] 01-05-2024 10:10-0400 Heart rate 80 /min Dr. Khanh Rodriguez Work Phone: [facility] 01-05-2024 10:10-0400 Respiratory rate 14 /min Dr. Khanh Rodriguez Work Phone: [facility] [facility] 10:10-0400 SaO2% (BldA) [Mass fraction] 99 % Dr. Khanh Rodriguez Work Phone: [facility] 01-05-2024 10:10-0400 Systolic blood pressure 130 mm[Hg] Dr. Khanh Rodriguez Work Phone: [facility] 12-30-2023 13:48-0400 Body temperature 97.5 [degF] Dr. Khanh Rodriguez Work Phone: [facility] 12-30-2023 13:48-0400 Diastolic blood pressure 61 mm[Hg] Dr. Khanh Rodriguez Work Phone: [facility] 12-30-2023 13:48-0400 Heart rate 65 /min Dr. Khanh Rodriguez Work Phone: [facility] 12-30-2023 13:48-0400 Respiratory rate 18 /min Dr. Khanh Rodriguez Work Phone: [facility] 12-30-2023 13:48-0400 SaO2% (BldA) [Mass fraction] 99 % Dr. Khanh Rodriguez Work Phone: [facility] 12-30-2023 13:48-0400 Systolic blood pressure 111 mm[Hg] Dr. Khanh Rodriguez Work Phone: [facility] 12-30-2023 04:27-0400 Body mass index (BMI) [Ratio] 27.4 kg/m2 Dr. Khanh Rodriguez Work Phone: [facility] 12-30-2023 04:27-0400 Body weight 72.[address] Khanh Rodriguez Work Phone: [facility] 12-28-2023 14:16-0400 Body height 162.[address] Khanh Rodriguez Work Phone: [facility] 12-27-2023 13:32-0400 Body temperature 97.5 [degF] Dr. Khanh Rodriguez Work Phone: [facility] 12-27-2023 13:32-0400 Diastolic blood pressure 61 mm[Hg] Dr. Khanh Rodriguez Work Phone: [facility] 12-27-2023 13:32-0400 Heart rate 76 /min Dr. Khanh Rodriguez Work Phone: [facility] 12-27-2023 13:32-0400 Respiratory rate 16 /min Dr. Khanh Rodriguez Work Phone: [facility] 12-27-2023 13:32-0400 SaO2% (BldA) [Mass fraction] 96 % Dr. Khanh Rodriguez Work Phone: [facility] 12-27-2023 13:32-0400 Systolic blood pressure 121 mm[Hg] Dr. Khanh Rodriguez Work Phone: [facility] 12-27-2023 08:47-0400 Body height 159.[address] Khanh Rodriguez Work Phone: [facility] 11-29-2023 09:41-0400 Body temperature 97.4 [degF] Dr. Khanh Rodriguez Work Phone: [facility] 11-29-2023 09:41-0400 Diastolic blood pressure 65 mm[Hg] Dr. Khanh Rodriguez Work Phone: [facility] 11-29-2023 09:41-0400 Heart rate 72 /min Dr. Khanh Rodriguez Work Phone: [facility] 11-29-2023 09:41-0400 Respiratory rate 20 /min Dr. Khanh Rodriguez Work Phone: [facility] 11-29-2023 09:41-0400 Systolic blood pressure 133 mm[Hg] Dr. Khanh Rodriguez Work Phone: [facility] 11-15-2023 15:24-0400 Body height 160.[address] Khanh Rodriguez Work Phone: [facility] 11-15-2023 15:24-0400 Body mass index (BMI) [Ratio] 26.9 kg/m2 Dr. Khanh Rodriguez Work Phone: [facility] 11-15-2023 15:24-0400 Body temperature 98.2 [degF] Dr. Khanh Rodriguez Work Phone: [facility] 11-15-2023 15:24-0400 Body weight 68.[address] Khanh Rodriguez Work Phone: [facility] 11-15-2023 15:24-0400 Diastolic blood pressure 70 mm[Hg] Dr. Khanh Rodriguez Work Phone: [facility] 11-15-2023 15:24-0400 Heart rate 70 /min Dr. Khanh Rodriguez Work Phone: [facility] 11-15-2023 15:24-0400 Respiratory rate 16 /min Dr. Khanh Rodriguez Work Phone: [facility] 11-15-2023 15:24-0400 SaO2% (BldA) [Mass fraction] 99 % Dr. Khanh Rodriguez Work Phone: [facility] 11-15-2023 15:24-0400 Systolic blood pressure 116 mm[Hg] Dr. Khanh Rodriguez Work Phone: [facility] 11-15-2023 09:45-0400 Body temperature 96.1 [degF] Dr. Khanh Rodriguez Work Phone: [facility] 11-15-2023 09:45-0400 Diastolic blood pressure 60 mm[Hg] Dr. Khanh Rodriguez Work Phone: [facility] 11-15-2023 09:45-0400 Heart rate 67 /min Dr. Khanh Rodriguez Work Phone: [facility] 11-15-2023 09:45-0400 Respiratory rate 20 /min Dr. Khanh Rodriguez Work Phone: [facility] 11-15-2023 09:45-0400 Systolic blood pressure 139 mm[Hg] Dr. Khanh Rodriguez Work Phone: [facility] 11-03-2023 10:57-0500 Body height 160.[address] Khanh Rodriguez Work Phone: [facility] 11-03-2023 10:57-0500 Body mass index (BMI) [Ratio] 25.8 kg/m2 Dr. Khanh Rodriguez Work Phone: [facility] 11-03-2023 10:57-0500 Body temperature 97.2 [degF] Dr. Khanh Rodriguez Work Phone: [facility] 11-03-2023 10:57-0500 Body weight 66.[address] Khanh Rodriguez Work Phone: [facility] 11-03-2023 10:57-0500 Diastolic blood pressure 62 mm[Hg] Dr. Khanh Rodriguez Work Phone: [facility] 11-03-2023 10:57-0500 Heart rate 100 /min Dr. Khanh Rodriguez Work Phone: [facility] 11-03-2023 10:57-0500 Respiratory rate 16 /min Dr. Khanh Rodriguez Work Phone: [facility] 11-03-2023 10:57-0500 SaO2% (BldA) [Mass fraction] 97 % Dr. Khanh Rodriguez Work Phone: [facility] 11-03-2023 10:57-0500 Systolic blood pressure 112 mm[Hg] Dr. Khanh Rodriguez Work Phone: [facility] 11-02-2023 11:38-0500 Body temperature 98 [degF] Dr. Khanh Rodriguez Work Phone: [facility] 11-02-2023 11:38-0500 Body weight 66.[address] Khanh Rodriguez Work Phone: [facility] 11-02-2023 11:38-0500 Diastolic blood pressure 66 mm[Hg] Dr. Khanh Rodriguez Work Phone: [facility] 11-02-2023 11:38-0500 Heart rate 73 /min Dr. Khanh Rodirguez Work Phone: [facility] 11-02-2023 11:38-0500 Respiratory rate 16 /min Dr. Khanh Rodriguez Work Phone: [facility] 11-02-2023 11:38-0500 SaO2% (BldA) [Mass fraction] 99 % Dr. Khanh Rodriguez Work Phone: [facility] 11-02-2023 11:38-0500 Systolic blood pressure 124 mm[Hg] Dr. Khanh Rodriguez Work Phone: [facility] 11-01-2023 08:51-0500 Body temperature 97.7 [degF] Dr. Khanh Rodriguez Work Phone: [facility] 11-01-2023 08:51-0500 Diastolic blood pressure 51 mm[Hg] Dr. Khanh Rodriguez Work Phone: [facility] 11-01-2023 08:51-0500 Heart rate 69 /min Dr. Khanh Rodriguez Work Phone: [facility] 11-01-2023 08:51-0500 Respiratory rate 16 /min Dr. Khanh Rodriguez Work Phone: [facility] 11-01-2023 08:51-0500 Systolic blood pressure 120 mm[Hg] Dr. Khanh Rodriguez Work Phone: [facility] 10-26-2023 11:20-0500 Body height 160.[address] Khanh Rodriguez Work Phone: [facility] 10-26-2023 11:20-0500 Body weight 67.[address] Khanh Rodriguez Work Phone: [facility] 10-25-2023 09:43-0500 Body temperature 96.6 [degF] Dr. Khanh Rodriguez Work Phone: [facility] 10-25-2023 09:43-0500 Diastolic blood pressure 53 mm[Hg] Dr. Khanh Rodriguez Work Phone: [facility] 10-25-2023 09:43-0500 Heart rate 63 /min Dr. Khanh Rodriguez Work Phone: [facility] 10-25-2023 09:43-0500 Respiratory rate 16 /min Dr. Khanh Rodriguez Work Phone: [facility] 10-25-2023 09:43-0500 Systolic blood pressure 117 mm[Hg] Dr. Khanh Rodriguez Work Phone: [facility] 10-18-2023 09:49-0500 Body temperature 97.9 [degF] Dr. Khanh Rodriguez Work Phone: [facility] 10-18-2023 09:49-0500 Diastolic blood pressure 62 mm[Hg] Dr. Khanh Rodriguez Work Phone: [facility] 10-18-2023 09:49-0500 Heart rate 74 /min Dr. Khanh Rodriguez Work Phone: [facility] 10-18-2023 09:49-0500 Respiratory rate 16 /min Dr. Khanh Rodriguez Work Phone: [facility] 10-18-2023 09:49-0500 Systolic blood pressure 124 mm[Hg] Dr. Khanh Rodriguez Work Phone: [facility] 10-04-2023 09:58-0500 Body temperature 97.1 [degF] Dr. Khanh Rodriguez Work Phone: [facility] 10-04-2023 09:58-0500 Diastolic blood pressure 50 mm[Hg] Dr. Khanh Rodriguez Work Phone: [facility] 10-04-2023 09:58-0500 Heart rate 62 /min Dr. Khanh Rodriguez Work Phone: [facility] 10-04-2023 09:58-0500 Respiratory rate 16 /min Dr. Khanh Rodriguez Work Phone: [facility] 10-04-2023 09:58-0500 Systolic blood pressure 112 mm[Hg] Dr. Khanh Rodriguez Work Phone: [facility] 09-21-2023 15:37-0500 Body temperature 97.1 [degF] Dr. Khanh Rodriguez Work Phone: [facility] 09-21-2023 15:37-0500 Diastolic blood pressure 68 mm[Hg] Dr. Khanh Rodriguez Work Phone: [facility] 09-21-2023 15:37-0500 Heart rate 72 /min Dr. Khanh Rodriguez Work Phone: [facility] 09-21-2023 15:37-0500 Respiratory rate 16 /min Dr. Khanh Rodriguez Work Phone: [facility] 09-21-2023 15:37-0500 SaO2% (BldA) [Mass fraction] 98 % Dr. Khanh Rodriguez Work Phone: [facility] 09-21-2023 15:37-0500 Systolic blood pressure 121 mm[Hg] Dr. Khanh Rodriguez Work Phone: [facility] 08-30-2023 08:36-0500 Body temperature 96.8 [degF] Dr. Khanh Rodriguez Work Phone: [facility] 08-30-2023 08:36-0500 Diastolic blood pressure 66 mm[Hg] Dr. Khanh Rodriguez Work Phone: [facility] 08-30-2023 08:36-0500 Heart rate 63 /min Dr. Khanh Rodriguez Work Phone: [facility] 08-30-2023 08:36-0500 Respiratory rate 16 /min Dr. Khanh Rodriguez Work Phone: [facility] 08-30-2023 08:36-0500 Systolic blood pressure 135 mm[Hg] Dr. Khanh Rodriguez Work Phone: [facility] 08-02-2023 10:39-0500 Body temperature 96.8 [degF] Dr. Khanh Rodriguez Work Phone: [facility] 08-02-2023 10:39-0500 Diastolic blood pressure 77 mm[Hg] Dr. Khanh Rodriguez Work Phone: [facility] 08-02-2023 10:39-0500 Heart rate 74 /min Dr. Khanh Rodriguez Work Phone: [facility] 08-02-2023 10:39-0500 Respiratory rate 18 /min Dr. Khanh Rodriguez Work Phone: [facility] 08-02-2023 10:39-0500 Systolic blood pressure 150 mm[Hg] Dr. Khanh Rodriguez Work Phone: [facility] 07-24-2023 15:19-0500 Body height 160.[address] Khanh Rodriguez Work Phone: [facility] 07-24-2023 15:19-0500 Body mass index (BMI) [Ratio] 26.4 kg/m2 Dr. Khanh Rodriguez Work Phone: [facility] 07-24-2023 15:19-0500 Body temperature 98 [degF] Dr. Khanh Rodriguez Work Phone: [facility] 07-24-2023 15:19-0500 Body weight 67.[address] Khanh Rodriguez Work Phone: [facility] 07-24-2023 15:19-0500 Diastolic blood pressure 67 mm[Hg] Dr. Khanh Rodriguez Work Phone: [facility] 07-24-2023 15:19-0500 Heart rate 66 /min Dr. Khanh oRdriguez Work Phone: [facility] 07-24-2023 15:19-0500 Respiratory rate 18 /min Dr. Khanh Rodriguez Work Phone: [facility] 07-24-2023 15:19-0500 SaO2% (BldA) [Mass fraction] 98 % Dr. Khanh Rodriguez Work Phone: [facility] 07-24-2023 15:19-0500 Systolic blood pressure 120 mm[Hg] Dr. Khanh Rodriguez Work Phone: [facility] 07-20-2023 09:17-0500 Body mass index (BMI) [Ratio] 25.9 kg/m2 Dr. Khanh Rodriguez Work Phone: [facility] 07-20-2023 09:17-0500 Body temperature 97.2 [degF] Dr. Khanh Rodriguez Work Phone: [facility] 07-20-2023 09:17-0500 Body weight 66.[address] Khanh Rodriguez Work Phone: [facility] 07-20-2023 09:17-0500 Diastolic blood pressure 78 mm[Hg] Dr. Khanh Rodriguez Work Phone: [facility] 07-20-2023 09:17-0500 Heart rate 67 /min Dr. Khanh Rodriguez Work Phone: [facility] 07-20-2023 09:17-0500 Respiratory rate 16 /min Dr. Khanh Rodriguez Work Phone: [facility] 07-20-2023 09:17-0500 SaO2% (BldA) [Mass fraction] 97 % Dr. Khanh Rodriguez Work Phone: [facility] 07-20-2023 09:17-0500 Systolic blood pressure 126 mm[Hg] Dr. Khanh Rodriguez Work Phone: [facility] 07-10-2023 13:14-0500 Body mass index (BMI) [Ratio] 25.5 kg/m2 Dr. Khanh Rodriguez Work Phone: [facility] 07-10-2023 13:14-0500 Body temperature 98.2 [degF] Dr. Khanh Rodriguez Work Phone: [facility] 07-10-2023 13:14-0500 Body weight 65.[address] Khanh Rodriguez Work Phone: [facility] 07-10-2023 13:14-0500 Diastolic blood pressure 74 mm[Hg] Dr. Khanh Rodriguez Work Phone: [facility] 07-10-2023 13:14-0500 Heart rate 69 /min Dr. Khanh Rodriguez Work Phone: [facility] 07-10-2023 13:14-0500 Respiratory rate 18 /min Dr. Khanh Rodriguez Work Phone: [facility] 07-10-2023 13:14-0500 SaO2% (BldA) [Mass fraction] 98 % Dr. Khanh Rodriguez Work Phone: [facility] 07-10-2023 13:14-0500 Systolic blood pressure 132 mm[Hg] Dr. Khanh Rodriguez Work Phone: [facility] 06-28-2023 09:53-0400 Body temperature 97.1 [degF] Dr. Khanh Rodriguez Work Phone: [facility] 06-28-2023 09:53-0400 Diastolic blood pressure 72 mm[Hg] Dr. Khanh Rodriguez Work Phone: [facility] 06-28-2023 09:53-0400 Heart rate 76 /min Dr. Khanh Rodriguez Work Phone: [facility] 06-28-2023 09:53-0400 Respiratory rate 18 /min Dr. Khanh Rodriguez Work Phone: [facility] 06-28-2023 09:53-0400 Systolic blood pressure 135 mm[Hg] Dr. Khanh Rodriguez Work Phone: [facility] 06-13-2023 13:31-0400 Body temperature 98 [degF] Dr. Khanh Rodriguez Work Phone: [facility] 06-13-2023 13:31-0400 Diastolic blood pressure 62 mm[Hg] Dr. Khanh Rodriguez Work Phone: [facility] 06-13-2023 13:31-0400 Heart rate 74 /min Dr. Khanh Rodriguez Work Phone: [facility] 06-13-2023 13:31-0400 Respiratory rate 18 /min Dr. Khanh Rodriguez Work Phone: [facility] 06-13-2023 13:31-0400 SaO2% (BldA) [Mass fraction] 100 % Dr. Khanh Rodriguez Work Phone: [facility] 06-13-2023 13:31-0400 Systolic blood pressure 124 mm[Hg] Dr. Khanh Rodriguez Work Phone: [facility] 06-12-2023 15:51-0400 Body height 160.[address] Khanh Rodriguez Work Phone: [facility] 06-12-2023 15:51-0400 Body weight 68.[address] Khanh Rodriguez Work Phone: [facility] 06-12-2023 14:18-0400 Body mass index (BMI) [Ratio] 26.5 kg/m2 Dr. Khanh Rodriguez Work Phone: [facility] 06-12-2023 14:18-0400 Inhaled oxygen flow rate 2 L/min Dr. Khanh Rodriguez Work Phone: [facility] 05-31-2023 10:01-0400 Body temperature 96.7 [degF] Dr. Khanh Rodriguez Work Phone: [facility] 05-31-2023 10:01-0400 Diastolic blood pressure 50 mm[Hg] Dr. Khanh Rodriguez Work Phone: [facility] 05-31-2023 10:01-0400 Heart rate 63 /min Dr. Khanh Rodriguez Work Phone: [facility] 05-31-2023 10:01-0400 Respiratory rate 18 /min Dr. Khanh Rodriguez Work Phone: [facility] 05-31-2023 10:01-0400 Systolic blood pressure 125 mm[Hg] Dr. Khanh Rodriguez Work Phone: [facility] 05-24-2023 13:52-0400 Body height 162.[address] Khanh Rodriguez Work Phone: [facility] 05-24-2023 13:52-0400 Body mass index (BMI) [Ratio] 25.4 kg/m2 Dr. Khanh Rodriguez Work Phone: [facility] 05-24-2023 13:52-0400 Body temperature 97.6 [degF] Dr. Khanh Rodriguez Work Phone: [facility] 05-24-2023 13:52-0400 Body weight 67.[address] Khanh Rodriguez Work Phone: [facility] 05-24-2023 13:52-0400 Diastolic blood pressure 74 mm[Hg] Dr. Khanh Rodriguez Work Phone: [facility] 05-24-2023 13:52-0400 Heart rate 61 /min Dr. Khanh Rodriguez Work Phone: [facility] 05-24-2023 13:52-0400 Respiratory rate 16 /min Dr. Khanh Rodriguez Work Phone: [facility] 05-24-2023 13:52-0400 SaO2% (BldA) [Mass fraction] 97 % Dr. Khanh Rodriguez Work Phone: [facility] 05-24-2023 13:52-0400 Systolic blood pressure 116 mm[Hg] Dr. Khanh Rodriguez Work Phone: [facility] 05-15-2023 15:56-0400 Body height 162.[address] Khanh Rodriguez Work Phone: [facility] 05-15-2023 15:56-0400 Body mass index (BMI) [Ratio] 24.5 kg/m2 Dr. Khanh Rodriguez Work Phone: [facility] 05-15-2023 15:56-0400 Body temperature 96.8 [degF] Dr. Khanh Rodriguez Work Phone: [facility] 05-15-2023 15:56-0400 Body weight 64.[address] Khanh Rodriguez Work Phone: [facility] 05-15-2023 15:56-0400 Diastolic blood pressure 71 mm[Hg] Dr. Khanh Rodriguez Work Phone: [facility] 05-15-2023 15:56-0400 Heart rate 69 /min Dr. Khanh Rodriguez Work Phone: [facility] 05-15-2023 15:56-0400 Respiratory rate 17 /min Dr. Khanh Rodriguez Work Phone: [facility] 05-15-2023 15:56-0400 SaO2% (BldA) [Mass fraction] 99 % Dr. Khanh Rodriguez Work Phone: [facility] 05-15-2023 15:56-0400 Systolic blood pressure 119 mm[Hg] Dr. Khanh Rodriguez Work Phone: [facility] 05-03-2023 10:00-0400 Body temperature 97.8 [degF] Dr. Khanh Rdoriguez Work Phone: [facility] 05-03-2023 10:00-0400 Body weight 65.[address] Khanh Rodriguez Work Phone: [facility] 05-03-2023 10:00-0400 Diastolic blood pressure 74 mm[Hg] Dr. Khanh Rodriguez Work Phone: [facility] 05-03-2023 10:00-0400 Heart rate 71 /min Dr. Khanh Rodriguez Work Phone: [facility] 05-03-2023 10:00-0400 Respiratory rate 16 /min Dr. Khanh Rodriguez Work Phone: [facility] 05-03-2023 10:00-0400 SaO2% (BldA) [Mass fraction] 100 % Dr. Khanh Rodriguez Work Phone: [facility] 05-03-2023 10:00-0400 Systolic blood pressure 129 mm[Hg] Dr. Khanh Rodriguez Work Phone: [facility] 04-26-2023 10:35-0400 Body height 162.[address] Khanh Rodriguez Work Phone: [facility] 04-26-2023 10:35-0400 Body mass index (BMI) [Ratio] 24.7 kg/m2 Dr. Khanh Rodriguez Work Phone: [facility] 04-26-2023 10:35-0400 Body temperature 95.9 [degF] Dr. Khanh Rodriguez Work Phone: [facility] 04-26-2023 10:35-0400 Body weight 65.[address] Khanh Rodriguez Work Phone: [facility] 04-26-2023 10:35-0400 Diastolic blood pressure 72 mm[Hg] Dr. Khanh Rodriguez Work Phone: [facility] 04-26-2023 10:35-0400 Heart rate 70 /min Dr. Khanh Rodriguez Work Phone: [facility] 04-26-2023 10:35-0400 Respiratory rate 18 /min Dr. Khanh Rodriguez Work Phone: [facility] 04-26-2023 10:35-0400 SaO2% (BldA) [Mass fraction] 99 % Dr. Khanh Rodriguez Work Phone: [facility] 04-26-2023 10:35-0400 Systolic blood pressure 138 mm[Hg] Dr. Khanh Rodriguez Work Phone: [facility] 04-19-2023 10:55-0400 Body mass index (BMI) [Ratio] 23.5 kg/m2 Dr. Khanh Rodriguez Work Phone: [facility] 04-19-2023 10:55-0400 Body temperature 96.9 [degF] Dr. Khanh Rodriguez Work Phone: [facility] 04-19-2023 10:55-0400 Diastolic blood pressure 65 mm[Hg] Dr. Khanh Rodriguez Work Phone: [facility] 04-19-2023 10:55-0400 Heart rate 63 /min Dr. Khanh Rodriguez Work Phone: [facility] 04-19-2023 10:55-0400 Respiratory rate 16 /min Dr. Khanh Rodriguez Work Phone: [facility] 04-19-2023 10:55-0400 Systolic blood pressure 120 mm[Hg] Dr. Khanh Rodriguez Work Phone: [facility] 04-04-2023 00:38-0400 Body weight 62.[address] Khanh Rodriguez Work Phone: [facility] 03-29-2023 11:11-0400 Body mass index (BMI) [Ratio] 23.5 kg/m2 Dr. Khanh Rodriguez Work Phone: [facility] 03-29-2023 11:11-0400 Body temperature 97 [degF] Dr. Khanh Rodriguez Work Phone: [facility] 03-29-2023 11:11-0400 Diastolic blood pressure 50 mm[Hg] Dr. Khanh Rodriguez Work Phone: [facility] 03-29-2023 11:11-0400 Heart rate 61 /min Dr. Khanh Rodriguez Work Phone: [facility] 03-29-2023 11:11-0400 Respiratory rate 18 /min Dr. Khanh Rodriguez Work Phone: [facility] 03-29-2023 11:11-0400 Systolic blood pressure 107 mm[Hg] Dr. Khanh Rodriguez Work Phone: [facility] 03-04-2023 01:35-0400 Body weight 62.[address] Khanh Rodriguez Work Phone: [facility] 03-01-2023 09:39-0400 Body mass index (BMI) [Ratio] 23.5 kg/m2 Dr. Khanh Rodriguez Work Phone: [facility] 03-01-2023 09:39-0400 Body temperature 97 [degF] Dr. Khanh Rodriguez Work Phone: [facility] 03-01-2023 09:39-0400 Diastolic blood pressure 65 mm[Hg] Dr. Khahn Rodriguez Work Phone: [facility] 03-01-2023 09:39-0400 Heart rate 65 /min Dr. Khanh Rodriguez Work Phone: [facility] 03-01-2023 09:39-0400 Respiratory rate 16 /min Dr. Khanh Rodriguez Work Phone: [facility] 03-01-2023 09:39-0400 Systolic blood pressure 109 mm[Hg] Dr. Khanh Rodriguez Work Phone: [facility] 02-02-2023 00:49-0400 Body weight 62.[address] Khanh Rodriguez Work Phone: [facility] 02-01-2023 11:13-0400 Body mass index (BMI) [Ratio] 23.5 kg/m2 Dr. Khanh Rodriguez Work Phone: [facility] 02-01-2023 11:13-0400 Body temperature 97.2 [degF] Dr. Khanh Rodriguez Work Phone: [facility] 02-01-2023 11:13-0400 Diastolic blood pressure 54 mm[Hg] Dr. Khanh Rodriguez Work Phone: [facility] 02-01-2023 11:13-0400 Heart rate 66 /min Dr. Khanh Rodriguez Work Phone: [facility] 02-01-2023 11:13-0400 Respiratory rate 16 /min Dr. Khanh Rodriguez Work Phone: [facility] 02-01-2023 11:13-0400 Systolic blood pressure 105 mm[Hg] Dr. Khanh Rodriguez Work Phone: [facility] 01-25-2023 09:15-0400 Body height 162.[address] Khanh Rodriguez Work Phone: [facility] 01-25-2023 09:15-0400 Body weight 62.[address] Khanh Rodriguez Work Phone: [facility] 01-20-2023 09:47-0400 Body mass index (BMI) [Ratio] 24.5 kg/m2 Dr. Khanh Rodriguez Work Phone: [facility] 01-20-2023 09:47-0400 Body temperature 97.3 [degF] Dr. Khanh Rodriguez Work Phone: [facility] 01-20-2023 09:47-0400 Body weight 64.[address] Khanh Rodriguez Work Phone: [facility] 01-20-2023 09:47-0400 Diastolic blood pressure 64 mm[Hg] Dr. Khanh Rodriguez Work Phone: [facility] 01-20-2023 09:47-0400 Heart rate 70 /min Dr. Khanh Rodriguez Work Phone: [facility] 01-20-2023 09:47-0400 Respiratory rate 18 /min Dr. Khanh Rodriguez Work Phone: [facility] 01-20-2023 09:47-0400 SaO2% (BldA) [Mass fraction] 98 % Dr. Khanh Rodriguez Work Phone: [facility] 01-20-2023 09:47-0400 Systolic blood pressure 114 mm[Hg] Dr. Khanh Rodriguez Work Phone: [facility] 05-31-2022 09:07-0400 Body height 162.56 cm No Primary Care Physician [facility] Work Phone: 05-31-2022 09:07-0400 Body mass index (BMI) [Ratio] 24.4 kg/m2 No Primary Care Physician [facility] Work Phone: 05-31-2022 09:07-0400 Body temperature 96.8 [degF] No Primary Care Physician [facility] Work Phone: 05-31-2022 09:07-0400 Body weight 64.52 kg No Primary Care Physician [facility] Work Phone: 05-31-2022 09:07-0400 Diastolic blood pressure 70 mm[Hg] No Primary Care Physician [facility] Work Phone: 05-31-2022 09:07-0400 Heart rate 71 /min No Primary Care Physician [facility] Work Phone: 05-31-2022 09:07-0400 Respiratory rate 18 /min No Primary Care Physician [facility] Work Phone: 05-31-2022 09:07-0400 SaO2% (BldA) [Mass fraction] 99 % No Primary Care Physician [facility] Work Phone: 05-31-2022 09:07-0400 Systolic blood pressure 130 mm[Hg] No Primary Care Physician [facility] Work Phone: 03-25-2022 09:16-0400 Body height 162.56 cm No Primary Care Physician [facility] Work Phone: 03-25-2022 09:16-0400 Body mass index (BMI) [Ratio] 23.1 kg/m2 No Primary Care Physician [facility] Work Phone: 03-25-2022 09:16-0400 Body temperature 97.2 [degF] No Primary Care Physician [facility] Work Phone: 03-25-2022 09:16-0400 Body weight 61.23 kg No Primary Care Physician [facility] Work Phone: 03-25-2022 09:16-0400 Diastolic blood pressure 70 mm[Hg] No Primary Care Physician [facility] Work Phone: 03-25-2022 09:16-0400 Heart rate 80 /min No Primary Care Physician [facility] Work Phone: 03-25-2022 09:16-0400 Respiratory rate 14 /min No Primary Care Physician [facility] Work Phone: 03-25-2022 09:16-0400 SaO2% (BldA) [Mass fraction] 97 % No Primary Care Physician [facility] Work Phone: 03-25-2022 09:16-0400 Systolic blood pressure 100 mm[Hg] No Primary Care Physician [facility] Work Phone: Encounters Encounter Date Encounter Type Care Provider Facility Start: 05-28-2025 End: 06-03-2025 Evaluation and management of inpatient EFLOKESHBE B REYNALDOYAMILEXE Facility:[facility] Start: 05-27-2025 End: 05-28-2025 ambulatory AMANDA SOTO Facility:[facility] Start: 05-27-2025 End: 05-27-2025 ambulatory NAYAN LORRI Facility:[facility] Start: 05-26-2025 ambulatory Efewongbe Oleghe Facili ty:[facility] Start: 05-21-2025 ambulatory Efewongbe Oleghe Facili ty:[facility] Start: 05-21-2025 End: 05-21-2025 Patient encounter procedure Solo MARQUEZ -[facility] Work Phone: Start: 05-21-2025 End: 05-21-[address] Khanh Rodriguez MD Work Phone: -[facility] Start: 05-20-2025 End: 05-20-2025 ambulatory Amanda Soto PT Work Phone: [facility] Start: 05-20-2025 End: 05-20-2025 Patient encounter procedure Amanda Soto PT Work Phone: [facility] Comment on above: Venous stasis ulcer of calf with fat layer exposed, unspecified laterality, unspecified whether varicose veins present (HCC) (Primary Dx); Venous ulcer (HCC) Start: 05-13-2025 End: 05-13-[address] Khanh Rodriguez MD Work Phone: -[facility] Start: 05-13-2025 End: 05-13-2025 Patient encounter procedure Tracy MARQUEZ -[facility] Work Phone: Start: 05-13-2025 End: 05-13-2025 ambulatory Amanda Soto PT Work Phone: [facility] Start: 05-13-2025 End: 05-13-2025 Patient encounter procedure Amanda Soto PT Work Phone: [facility] Comment on above: Venous ulcer (HCC) ( Primary Dx) Start: 05-13-2025 End: 05-13-2025 ambulatory Tracy Lopez Facility:[facility] Start: 05-10-2025 End: 05-10-2025 Transcribe Orders Tracy MARQUEZ Work Phone: Referring Physician Comment on above: Spinal stenosis of l umbar region with neurogenic claudication (Primary Dx); Low back pain, unspecified back pain laterality, unspecified chronicity, unspecified whether sciatica present Start: 05-08-2025 End: 05-08-[address] Jacob Amor MD -[facility] Start: 05-08-2025 End: 05-08-[address] Khanh Rodriugez MD Work Phone: -[facility] Start: 05-06-2025 End: 05-06-2025 ambulatory Amanda Soto PT Work Phone: [facility] Start: 05-06-2025 End: 05-06-2025 Patient encounter procedure Amanda Soto PT Work Phone: [facility] Comment on above: Venous ulcer (HCC) ( Primary Dx) Start: 04-29-2025 End: 04-29-2025 Patient encounter procedure Liseth CHILDERSC -[facility] Work Phone: Start: 04-29-2025 End: 04-29-[address] Khanh Rodriguez MD Work Phone: -[facility] Start: 04-28-2025 End: 04-28-2025 ambulatory Amanda Soto PT Work Phone: [facility] Start: 04-28-2025 End: 04-28-2025 Patient encounter procedure Amanda Soto PT Work Phone: [facility] Comment on above: Venous ulcer (HCC) ( Primary Dx) Start: 04-25-2025 End: 04-25-[address] Khanh Rodriguez MD -[facility] Work Phone: Start: 04-25-2025 End: 04-25-[address] Khanh Rodriguez MD Work Phone: -[facility] Start: 04-22-2025 End: 04-23-2025 ambulatory Amanda Soto PT Work Phone: [facility] Start: 04-22-2025 End: 04-22-2025 Patient encounter procedure Amanda Soto PT Work Phone: [facility] Comment on above: Venous ulcer (HCC) ( Primary Dx) Start: 04-15-2025 End: 04-16-2025 ambulatory Amanda Soto PT Work Phone: [facility] Start: 04-15-2025 End: 04-16-2025 Patient encounter procedure Amanda Stoddarda PT Work Phone: [facility] Comment on above: Venous ulcer (HCC) ( Primary Dx) Start: 04-08-2025 End: 04-08-2025 ambulatory AMANDA SOTO Facility:[facility] Start: 04-01-2025 End: 04-01-2025 ambulatory Amanda Soto PT Work Phone: [facility] Start: 04-01-2025 End: 04-01-2025 Patient encounter procedure Amanda Soto PT Work Phone: [facility] Comment on above: Venous ulcer (HCC) ( Primary Dx) Start: 03-28-2025 End: 03-28-[address] Khanh Rodriguez MD -[facility] Work Phone: Start: 03-28-2025 End: 03-28-[address] Khanh Rodriguez MD Work Phone: -[facility] Start: 03-25-2025 End: 03-26-2025 ambulatory Amanda Soto PT Work Phone: [facility] Start: 03-25-2025 End: 03-26-2025 Patient encounter procedure Amanda Soto PT Work Phone: [facility] Comment on above: Venous ulcer (HCC) ( Primary Dx) Start: 03-19-2025 End: 03-19-2025 Patient encounter procedure Amanda Soto PT Work Phone: [facility] Comment on above: Venous ulcer (HCC) ( Primary Dx) Start: 03-19-2025 End: 03-19-2025 ambulatory Amanda Soto PT Work Phone: [facility] Start: 03-11-2025 End: 03-11-2025 ambulatory Amanda Soto PT Work Phone: [facility] Start: 03-11-2025 End: 03-11-2025 Patient encounter procedure Amanda Soto PT Work Phone: [facility] Comment on above: Venous ulcer (HCC) ( Primary Dx) Start: 03-04-2025 ambulatory Khanh [facility] Start: 03-03-2025 End: 03-03-2025 ambulatory Amanda Soto PT Work Phone: [facility] Start: 03-03-2025 End: 03-03-2025 Patient encounter procedure Amanda Soto PT Work Phone: [facility] Comment on above: Venous ulcer (HCC) ( Primary Dx) Start: 02-28-2025 End: 02-28-[address] Khanh Rodriguez MD -[facility] Work Phone: Start: 02-28-2025 End: 02-28-[address] Khanh Rodriguez MD Work Phone: -[facility] Start: 02-25-2025 End: 02-25-2025 ambulatory NAYAN BLACKMON [facility] Start: 02-25-2025 End: 02-25-2025 Patient encounter procedure Nayan Blackmon MD Work Phone: Plastic Surgery Comment on above: Pseudomonas aerugino sa infection (Primary Dx); Venous ulcer (HCC); Alcoholic cirrhosis of liver with ascites (HCC); Anxiety; Umbilical hernia without obstruction or gangrene Start: 02-24-2025 End: 02-24-2025 Patient encounter procedure Amanda Soto PT Work Phone: [facility] Comment on above: Venous ulcer (HCC) ( Primary Dx) Start: 02-24-2025 End: 02-24-2025 ambulatory Amanda Stoddarda PT Work Phone: [facility] Start: 02-24-2025 End: 02-24-[address] Nayan Blackmon MD [facility] Start: 02-24-[address] Nayan Blackmon MD -[facility] Start: 02-24-2025 End: 02-24-[address] Khanh Rodriguez MD Work Phone: -[facility] Start: 02-18-2025 End: 02-18-2025 Subsequent hospital visit by physician Chair [facility] Work Phone: Infusion Center Start: 02-18-2025 End: 02-18-2025 ambulatory KHANH RODRIGUEZ Facility:[facility] Start: 02-17-2025 End: 02-18-2025 Patient encounter procedure Amanda Soto PT Work Phone: [facility] Comment on above: Venous ulcer (HCC) ( Primary Dx) Start: 02-17-2025 End: 02-18-2025 ambulatory Amanda Soto PT Work Phone: [facility] Start: 02-17-2025 End: 02-17-2025 Telephone encounter Nayan Blackmon MD Work Phone: Plastic Surgery Comment on above: Patient Question Start: 02-11-2025 End: 02-11-2025 ambulatory NAYAN BLACKMON Facility:[facility] Start: 02-11-2025 End: 02-11-2025 Patient encounter procedure Nayan Blackmon MD Work Phone: Plastic Surgery Comment on above: Pseudomonas aerugino sa infection (Primary Dx); Venous ulcer (HCC); Alcoholic cirrhosis of liver with ascites (HCC); Anxiety Start: 02-11-2025 End: 02-25-2025 Telephone encounter Nayan Blackmon MD Work Phone: [facility] Comment on above: [employer] (FO R [facility] USE ONLY) Start: 02-10-2025 End: 02-10-2025 Patient encounter procedure Amanda Soto PT Work Phone: [facility] Comment on above: Venous ulcer (HCC) ( Primary Dx) Start: 02-10-2025 End: 02-10-2025 ambulatory Amanda Soto PT Work Phone: [facility] Start: 02-03-2025 End: 02-03-2025 Patient encounter procedure Amanda Soto PT Work Phone: [facility] Comment on above: Venous ulcer (HCC) ( Primary Dx) Start: 02-03-2025 End: 02-03-2025 ambulatory Amanda Soto PT Work Phone: [facility] Start: 01-31-2025 End: 01-31-[address] Khanh Rodriguez MD -[facility] Work Phone: Start: 01-31-2025 End: 01-31-[address] Khanh Rodriguez MD Work Phone: [facility] Work Phone: Start: 01-28-2025 End: 01-29-2025 ambulatory Amanda Soto PT Work Phone: [facility] Start: 01-28-2025 End: 01-28-2025 Patient encounter procedure Amanda Soto PT Work Phone: [facility] Comment on above: Venous ulcer of righ t lower extremity with varicose veins (HCC) (Primary Dx); Venous ulcer (HCC) Start: 01-23-2025 End: 01-23-[address] Nabeel Patel MD -[facility] Work Phone: Start: 01-23-2025 End: 01-23-2025 ambulatory Khanh Rodriguez [facility] Start: 01-23-[address] Fidel Patel MD -[facility] Start: 01-22-2025 End: 01-22-2025 Patient encounter procedure Solo MARQUEZ -[facility] Work Phone: Start: 01-22-2025 End: 01-22-[address] Khanh Rodriguez MD Work Phone: [facility] Work Phone: Start: 01-20-2025 End: 01-20-2025 ambulatory AMANDA SOTO Facility:[facility] Start: 01-13-2025 End: 01-13-2025 ambulatory Amanda Soto PT Work Phone: [facility] Start: 01-13-2025 End: 01-13-2025 Patient encounter procedure Amanda Stoddarda PT Work Phone: [facility] Comment on above: Venous ulcer (HCC) ( Primary Dx) Start: 01-06-2025 End: 01-08-2025 Orders Only Gt Hughes Yin DO Work Phone: Vascular Surgery Comment on above: Venous ulcer (HCC) ( Primary Dx); Venous (peripheral) insufficiency; Secondary lymphedema Venous ulcer (HCC) ( Primary Dx) Start: 07-15-2024 ambulatory Efewongbe Oleghe Facili :[facility] Start: 06-26-2024 End: 06-27-2024 ambulatory Amanda Soto PT Work Phone: [facility] Start: 06-26-2024 End: 06-27-2024 Patient encounter procedure Amanda Stoddarda PT Work Phone: [facility] Comment on above: Venous ulcer (HCC) ( Primary Dx); Venous (peripheral) insufficiency; Secondary lymphedema Start: 06-20-2024 Encounter for other preprocedural examination Yamile Glez [facility] Start: 06-18-2024 End: 06-18-2024 ambulatory Amanda Stoddarda PT Work Phone: [facility] Start: 06-18-2024 End: 06-18-2024 Patient encounter procedure Amanda Soto PT Work Phone: [facility] Comment on above: Venous ulcer (HCC) ( Primary Dx); Venous (peripheral) insufficiency; Secondary lymphedema Start: 06-17-2024 End: 06-17-2024 ambulatory Efewongbe Oleyamilexe Facility:[facility] Start: 06-14-2024 End: 06-14-2024 ambulatory [facility] Start: 06-12-2024 End: 06-12-2024 ambulatory Amanda Soto PT Work Phone: [facility] Start: 06-12-2024 End: 06-12-2024 Patient encounter procedure Amanda Stoddarda PT Work Phone: [facility] Comment on above: Venous ulcer (HCC) ( Primary Dx); Venous (peripheral) insufficiency; Secondary lymphedema Start: 06-12-2024 End: 06-12-2024 Patient encounter procedure Monse Merlos PA-C Work Phone: [facility] Comment on above: Degenerative scolios is (Primary Dx) Start: 06-12-2024 End: 06-12-2024 ambulatory KHANH RODRIGUEZ Facility:[facility] Start: 06-04-2024 End: 06-04-2024 ambulatory Amanda Stoddarda PT Work Phone: [facility] Start: 06-04-2024 End: 06-04-2024 Patient encounter procedure Amanda Soto PT Work Phone: [facility] Comment on above: Venous ulcer (HCC) ( Primary Dx); Venous (peripheral) insufficiency; Secondary lymphedema Start: 05-31-2024 ambulatory [facility] Facility [facility] Start: 05-31-2024 End: 05-31-2024 [facility] Start: 05-28-2024 End: 05-28-2024 ambulatory Amanda Stoddarda PT Work Phone: [facility] Start: 05-28-2024 End: 05-28-2024 Patient encounter procedure Amanda Stoddarda PT Work Phone: [facility] Comment on above: Venous ulcer (HCC) ( Primary Dx); Venous (peripheral) insufficiency; Secondary lymphedema Start: 05-21-2024 End: 05-21-2024 ambulatory Amanda Soto PT Work Phone: [facility] Start: 05-21-2024 End: 05-21-2024 Patient encounter procedure Amanda Soto PT Work Phone: [facility] Comment on above: Venous ulcer (HCC) ( Primary Dx); Venous (peripheral) insufficiency; Secondary lymphedema Start: 05-15-2024 End: 05-15-2024 Rosales Dickerson Work Phone: No Location Start: 05-15-2024 ambulatory Rosales Dickerson [facility] Start: 05-14-2024 End: 05-14-2024 Rosales Dickerson Work Phone: No Location Start: 05-14-2024 ambulatory Rosales Dickerson [facility] Start: 05-14-2024 End: 05-14-2024 ambulatory Amanda Soto PT Work Phone: [facility] Start: 05-14-2024 End: 05-14-2024 Patient encounter procedure Amanda Soto PT Work Phone: [facility] Comment on above: Venous ulcer (HCC) ( Primary Dx); Venous (peripheral) insufficiency; Secondary lymphedema Start: 05-10-2024 End: 05-11-2024 ambulatory Amanda Soto PT Work Phone: [facility] Start: 05-10-2024 End: 05-11-2024 Patient encounter procedure Amanda Soto PT Work Phone: [facility] Comment on above: Venous ulcer (HCC) ( Primary Dx); Venous (peripheral) insufficiency; Secondary lymphedema Start: 05-08-2024 End: 05-09-2024 Telephone encounter Amanda Soto PT Work Phone: [facility] Comment on above: Appointment Start: 04-30-2024 End: 04-30-2024 ambulatory Amanda Soto PT Work Phone: [facility] Start: 04-30-2024 End: 04-30-2024 Patient encounter procedure Amanda Soto PT Work Phone: [facility] Comment on above: Venous ulcer (HCC) ( Primary Dx); Venous (peripheral) insufficiency; Secondary lymphedema Start: 04-30-2024 End: 04-30-2024 ambulatory [facility] Comment on above: Other malaise (Prima ry Dx) Start: 04-24-2024 End: 04-24-2024 ambulatory Amanda Soto PT Work Phone: [facility] Start: 04-24-2024 End: 04-24-2024 Patient encounter procedure Amanda Soto PT Work Phone: [facility] Comment on above: Venous ulcer (HCC) ( Primary Dx); Venous (peripheral) insufficiency; Secondary lymphedema Start: 04-23-2024 End: 04-23-2024 ambulatory Liseth O'Carlos PT [facility] Comment on above: Other malaise (Prima ry Dx) Start: 04-23-2024 End: 04-23-2024 ambulatory KHANH RODRIGUEZ Facility:[facility] Start: 04-23-2024 End: 04-23-2024 Patient encounter procedure Gt Yin DO Work Phone: Vascular Surgery Comment on above: Venous ulcer (HCC) ( Primary Dx); Venous (peripheral) insufficiency Start: 04-16-2024 End: 04-16-2024 ambulatory Amanda Soto PT Work Phone: [facility] Start: 04-16-2024 End: 04-16-2024 Patient encounter procedure Amanda Soto PT Work Phone: [facility] Comment on above: Venous ulcer (HCC) ( Primary Dx); Venous (peripheral) insufficiency; Secondary lymphedema Start: 04-16-2024 End: 04-16-2024 ambulatory Liseth O'Carlos PT [facility] Comment on above: Other malaise (Prima ry Dx) Start: 04-10-2024 End: 04-10-2024 ambulatory Amanda Soto PT Work Phone: [facility] Start: 04-10-2024 End: 04-10-2024 Patient encounter procedure Amanda Soto PT Work Phone: [facility] Comment on above: Venous ulcer (HCC) ( Primary Dx); Venous (peripheral) insufficiency; Secondary lymphedema Start: 04-04-2024 End: 04-04-2024 ambulatory Amanda Soto PT Work Phone: [facility] Start: 04-04-2024 End: 04-04-2024 Patient encounter procedure Amanda Stoddarda PT Work Phone: [facility] Comment on above: Venous ulcer (HCC) ( Primary Dx); Venous (peripheral) insufficiency; Secondary lymphedema Start: 04-03-2024 End: 04-03-2024 ambulatory KHANH RODRIGUEZ Facility:[facility] Start: 04-03-2024 End: 04-03-2024 Patient encounter procedure [facility] Work Phone: Vasculary Surgery Comment on above: Venous (peripheral) insufficiency; Symptomatic varicose veins of both lower extremities Start: 04-02-2024 End: 04-02-2024 ambulatory KHANH RODRIGUEZ Facility:[facility] Start: 04-02-2024 End: 04-02-2024 Patient encounter procedure Marisela Mccarty MD Work Phone: Orthopaedics Comment on above: S/P hip hemiarthropl asty (Primary Dx); Degenerative scoliosis Start: 04-02-2024 End: 04-02-2024 Subsequent hospital visit by physician [employer] [facility] Work Phone: Radiology Comment on above: Pain in left hip [M2 5.552] Start: 04-01-2024 End: 04-01-2024 ambulatory Liseth O'Carlos PT [facility] Comment on above: Other malaise (Prima ry Dx) Start: 03-26-2024 End: 03-26-2024 ambulatory Amanda Soto PT Work Phone: [facility] Start: 03-26-2024 End: 03-26-2024 Patient encounter procedure Amanda Soot PT Work Phone: [facility] Comment on above: Venous ulcer (HCC) ( Primary Dx); Venous (peripheral) insufficiency; Secondary lymphedema Start: 03-26-2024 End: 03-26-2024 ambulatory Liseth O'Carlos PT [facility] Comment on above: Other malaise (Prima ry Dx) Start: 03-20-2024 End: 03-20-2024 ambulatory Liseth O'Carlos PT [facility] Comment on above: Other malaise (Prima ry Dx) Start: 03-19-2024 End: 03-19-2024 ambulatory Amanda Soto PT Work Phone: [facility] Start: 03-19-2024 End: 03-19-2024 Patient encounter procedure Amanda Soto PT Work Phone: [facility] Comment on above: Venous ulcer (HCC) ( Primary Dx); Venous (peripheral) insufficiency; Secondary lymphedema Start: 03-13-2024 End: 03-14-2024 ambulatory Liseth O'Carlos PT [facility] Comment on above: Other malaise (Prima ry Dx) Start: 03-12-2024 End: 03-12-2024 ambulatory Amanda Soto PT Work Phone: [facility] Start: 03-12-2024 End: 03-12-2024 Patient encounter procedure Amanda Soto PT Work Phone: [facility] Comment on above: Venous ulcer (HCC) ( Primary Dx); Venous (peripheral) insufficiency; Secondary lymphedema Start: 02-29-2024 End: 02-29-2024 ambulatory Amanda Soto PT Work Phone: [facility] Start: 02-29-2024 End: 02-29-2024 Patient encounter procedure Amanda Soto PT Work Phone: [facility] Comment on above: Venous ulcer (HCC); Venous (peripheral) insufficiency; Secondary lymphedema Start: 02-27-2024 End: 02-27-2024 ambulatory KHANH RODRIGUEZ Facility:[facility] Start: 02-27-2024 End: 02-27-2024 Patient encounter procedure Gt Yin DO Work Phone: Vascular Surgery Comment on above: Venous ulcer (HCC) ( Primary Dx); Venous (peripheral) insufficiency; Secondary lymphedema; Symptomatic varicose veins of both lower extremities Start: 02-20-2024 End: 02-20-2024 ambulatory Liseth O'Carlos PT [facility] Comment on above: Other malaise (Prima ry Dx) Start: 02-13-2024 End: 02-13-2024 ambulatory Liseth O'Carlos PT [facility] Comment on above: Other malaise (Prima ry Dx) Start: 02-06-2024 End: 02-06-2024 ambulatory Liseth O'Carlos PT [facility] Comment on above: Other malaise (Prima ry Dx) Start: 01-30-2024 End: 01-30-2024 ambulatory Liseth O'Carlos PT [facility] Comment on above: Other malaise (Prima ry Dx) Start: 01-24-2024 End: 01-24-2024 ambulatory Liseth O'Carlos PT [facility] Comment on above: Other malaise (Prima ry Dx) Start: 01-05-2024 End: 01-05-[address] Khanh Rodriguez Work Phone: [facility] Work Phone: Start: 01-05-2024 End: 01-05-[address] Khanh Rodriguez Work Phone: [facility] [place] [facility] Start: 01-05-2024 End: 01-05-[address] Khanh Rodriguez Work Phone: [facility] Work Phone: Start: 12-30-2023 End: 12-30-2023 Rosales Dickerson Work Phone: No Location Start: 12-30-2023 ambulatory Rosales Dickerson [facility] Start: 12-30-2023 Non-patient / Non-visit Dr. Sukhdev Rodriguez Work Phone: [facility] Work Phone: Start: 12-29-2023 Non-patient / Non-visit Dr. Sukhdev Rodriguez Work Phone: [facility] Start: 12-29-2023 Non-patient / Non-visit Dr. Sukhdev Rodriguez Work Phone: [facility] Work Phone: Start: 12-28-2023 Non-patient / Non-visit Dr. Sukhdev Rodriguez Work Phone: [facility] Start: 12-28-2023 Non-patient / Non-visit Dr. Sukhdev Rodriguez Work Phone: [facility] Work Phone: Start: 12-27-2023 End: 12-27-2023 [facility] Work Phone: No Location Start: 12-27-2023 Non-patient / Non-visit Dr. Sukhdev Rodriguez Work Phone: [facility] Work Phone: Start: 12-27-2023 ambulatory [facility] Start: 12-27-2023 End: 12-30-2023 Evaluation and management of inpatient Dr. Khanh Rodriguez Work Phone: [facility] Work Phone: Start: 11-29-2023 Non-patient / Non-visit Dr. Sukhdev Rodriguez Work Phone: [facility] Start: 11-29-2023 End: 12-03-[address] Khanh Rodriguez Work Phone: [facility] Work Phone: Start: 11-29-2023 End: 12-03-[address] Khanh Rodriguez Work Phone: [facility] Work Phone: Start: 11-22-2023 Non-patient / Non-visit Dr. Sukhdev Rodriguez Work Phone: [facility] Start: 11-16-2023 Non-patient / Non-visit Dr. Sukhdev Rodriguez Work Phone: [facility] Start: 11-15-2023 End: 11-15-[address] Khanh Rodriguez Work Phone: [facility] Work Phone: Start: 11-15-2023 End: 11-15-[address] Khanh [facility]: [facility] System-Laboratory, [place] Start: 11-15-2023 End: 11-15-[address] Khanh Rodriguez Work Phone: [facility] Internal Medicine Work Phone: Start: 11-15-2023 Non-patient / Non-visit Dr. Sukhdev Rodriguez Work Phone: After Hours [facility] Start: 11-15-[address] Nigel Rodriguez Work Phone: [facility] Work Phone: Start: 11-14-2023 End: 11-14-[address] Khanh Rodriguez Work Phone: [facility] Work Phone: Start: 11-14-2023 End: 11-14-[address] Khanh Rodriguez Work Phone: [facility]-Cardiovascul ar Services Work Phone: Start: 11-14-2023 Non-patient / Non-visit Dr. Sukhdev Rodriguez Work Phone: [facility] Start: 11-03-2023 End: 11-03-[address] Khanh Rodriguez Work Phone: [facility] Work Phone: Start: 11-03-2023 End: 11-03-[address] Khanh Rodriguez Work Phone: [facility] Internal Medicine Work Phone: Start: 11-02-2023 Non-patient / Non-visit Dr. Sukhdev Rodriguez Work Phone: [facility] Start: 11-02-2023 End: 11-02-[address] Khanh Rodriguez Work Phone: [facility] Work Phone: Start: 11-02-2023 End: 11-02-[address] Khanh Rodriguez Work Phone: [facility] Vascular Surgery Work Phone: Start: 11-01-2023 Non-patient / Non-visit Dr. Sukhdev Rodriguez Work Phone: After Hours [facility] Start: 11-01-2023 End: 11-02-[address] Khanh Rodriguez Work Phone: [facility] Work Phone: Start: 11-01-2023 End: 11-02-[address] Khanh Rodriguez Work Phone: [facility] Healing [facility] Work Phone: Start: 10-26-2023 Non-patient / Non-visit Dr. Sukhdev Rodriguez Work Phone: [facility] Start: 10-26-2023 End: 10-26-2023 Admission to same day surgery center Dr. 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 Khanh Rodriguez Work Phone: [facility] Work Phone: Start: 10-25-2023 Non-patient / Non-visit Dr. Sukhdev Rodriguez Work Phone: After [facility] Start: 10-25-[address] Nigel Rodriguez Work Phone: [facility] Work Phone: Start: 10-20-2023 Non-patient / Non-visit Dr. Sukhdev Rodriguez Work Phone: [facility] Start: 10-20-2023 End: 10-20-[address] Khanh Rodriguez Work Phone: [facility] Work Phone: Start: 10-20-2023 End: 10-20-[address] Khanh Rodriguez Work Phone: [facility]-Cardiovascul ar Services Work Phone: Start: 10-18-[address] Nigel Rodriguez Work Phone: [facility] Work Phone: Start: 10-13-2023 Non-patient / Non-visit Dr. Sukhdev Rodriguez Work Phone: [facility] Start: 10-13-2023 End: 10-13-[address] Khanh Rodriguez Work Phone: [facility] Work Phone: Start: 10-13-2023 End: 10-13-[address] Khanh Rodriguez Work Phone: [facility]-Cardiovascul ar Services Work Phone: Start: 10-11-2023 Non-patient / Non-visit Dr. Sukhdev Rodriguez Work Phone: After Hours Family Medicine-[facility] Start: 10-04-2023 Non-patient / Non-visit Dr. Sukhdev Rodriguez Work Phone: After Hours Family Medicine-[facility] Start: 10-04-2023 End: 10-04-[address] Khanh Rodriguez Work Phone: [facility] Work Phone: Start: 10-04-2023 End: 10-04-[address] Khanh Rodriguez Work Phone: [facility] Work Phone: Start: 09-27-2023 Non-patient / Non-visit Dr. Sukhdev Rodriguez Work Phone: After Hours Family Medicine-[facility] Start: 09-21-2023 End: 09-21-[address] Khanh Rodriguez Work Phone: [facility] Vascular Surgery Work Phone: Start: 09-13-2023 Non-patient / Non-visit Dr. Sukhdev Rodriguez Work Phone: After Hours Family Medicine-[facility] Start: 08-30-2023 Non-patient / Non-visit Dr. Sukhdev Rodriguez Work Phone: After Hours Family Medicine[facility] Start: 08-30-2023 End: 09-03-[address] Khahn Rodriguez Work Phone: [facility] Work Phone: Start: 08-23-2023 Non-patient / Non-visit Dr. Sukhdev Rodriguez Work Phone: After Hours Family Medicine[facility] Start: 08-16-2023 Non-patient / Non-visit Dr. Sukhdev Rodriguez Work Phone: After Hours Family [facility] Start: 08-02-2023 End: 08-03-[address] Khanh Rodriguez Work Phone: [facility] Work Phone: Start: 07-26-2023 Non-patient / Non-visit Dr. Sukhdev Rodriguez Work Phone: After Hours [facility] Start: 07-24-2023 End: 07-24-[address] Khanh Rodriguez Work Phone: [facility] Emergency Department Work Phone: Start: 07-20-2023 End: 07-20-[address] Khanh Rodriguez Work Phone: [facility] Emergency Department Work Phone: Start: 07-12-2023 Non-patient / Non-visit Dr. Sukhdev Rodriguez Work Phone: [facility] Start: 07-10-[address] Nigel Rodriguez Work Phone: [facility] Start: 07-10-2023 End: 07-10-[address] Khanh Rodriguez Work Phone: [facility] Emergency Department Work Phone: Start: 07-05-2023 Non-patient / Non-visit Dr. Sukhdev Rodriguez Work Phone: After Hours [facility] Start: 06-28-2023 Non-patient / Non-visit Dr. Sukhdev Rodriguez Work Phone: [facility] Start: 06-28-2023 End: 07-04-[address] Khanh Rodriguez Work Phone: [facility] Work Phone: Start: 06-28-2023 End: 07-04-[address] Khanh Rodriguez Work Phone: [facility] Work Phone: Start: 06-28-2023 End: 06-28-[address] Khanh Rodriguez Work Phone: [facility] Work Phone: Start: 06-21-2023 Non-patient / Non-visit Dr. Sukhdev Rodriguez Work Phone: After Hours [facility] Start: 06-21-2023 End: 06-21-[address] Khanh Rodriguez Work Phone: [facility] Work Phone: Start: 06-19-2023 End: 06-19-[address] Khanh Rodriguez Work Phone: [facility] Work Phone: Start: 06-14-2023 Non-patient / Non-visit Dr. Sukhdev Rodriguez Work Phone: After Hours [facility] Start: 06-13-2023 Non-patient / Non-visit Dr. Sukhdev Rodriguez Work Phone: [facility] Start: 06-12-2023 End: 06-12-2023 Rosales Dickerson Work Phone: No Location Start: 06-12-2023 Non-patient / Non-visit Dr. Sukhdev Rodriguez Work Phone: [facility] Start: 06-12-2023 [facility] Start: 06-12-2023 End: 06-13-2023 Evaluation and management of inpatient Dr. Khanh Rodriguez Work Phone: [facility] Work Phone: Start: 06-08-2023 End: 06-08-2023 Non-patient / Non-visit Dr. Khanh Rodriguez Work Phone: [facility] Work Phone: Start: 06-05-2023 End: 06-05-[address] Khanh Rodriguez Work Phone: [facility] Work Phone: Start: 05-31-2023 End: 05-31-[address] Khanh Rodriguez Work Phone: [facility] Work Phone: Start: 05-31-2023 End: 05-31-[address] Khanh Rodriguez Work Phone: [facility] Work Phone: Start: 05-31-2023 Non-patient / Non-visit Dr. Sukhdev Rodriguez [facility] Phone[facility] Start: 05-31-2023 End: 06-03-[address] Khanh Rodriguez Work Phone: [facility] Work Phone: Start: 05-29-2023 End: 05-29-[address] Khanh Rodriguez Work Phone: [facility] Ultrasound Work Phone: Start: 05-24-[address] Nigel Rodriguez Work Phone: [facility] Start: 05-24-2023 End: 05-24-[address] Khanh Rodriguez Work Phone: [facility] Work Phone: Start: 05-23-2023 Non-patient / Non-visit Dr. Sukhdev Rodriguez Work Phone: After Hours [facility] Start: 05-16-2023 End: 05-16-[address] Khanh Rodriguez Work Phone: [facility] Work Phone: Start: 05-16-2023 End: 05-16-[address] Khanh Rodriguez Work Phone: [facility]-Laboratory, Specimen Work Phone: Start: 05-15-2023 End: 05-15-[address] Khanh Rodriguez Work Phone: [facility] Work Phone: Start: 05-10-2023 End: 05-10-[address] Khanh Rodriguez Work Phone: [facility] Work Phone: Start: 05-10-2023 End: 05-10-[address] Khanh Rodriguez Work Phone: [facility]-Outpatient Breast Imaging Work Phone: Start: 05-08-2023 Non-patient / Non-visit Dr. Sukhdev Rodriguez Work Phone: [facility] Start: 05-03-2023 End: 05-03-[address] Khanh Rodriguez Work Phone: [facility] Work Phone: Start: 05-03-2023 End: 05-03-[address] Khanh Rodriguez Work Phone: [facility]-Laboratory, [place] Start: 05-03-2023 End: 05-03-[address] Khanh Rodriguez Work Phone: [facility] Vascular Surgery Work Phone: Start: 04-26-[address] Gloria Rodriguez Work Phone: [facility] Start: 04-26-2023 End: 04-26-[address] Khanh Rodriguez Work Phone: [facility] Work Phone: Start: 04-26-2023 End: 04-26-2023 Emergency department patient visit Dr. Khanh Rodriguez Work Phone: [facility] Start: 04-26-2023 End: 04-26-[address] Khanh Rodriguez Work Phone: [facility] Internal Medicine Work Phone: Start: 04-19-2023 Non-patient / Non-visit Dr. Sukhdev Rodriguez Work Phone: After Hours Family Medicine[facility] Start: 04-19-2023 End: 05-01-[address] Khanh Rodriguez Work Phone: [facility] Work Phone: Start: 04-19-2023 End: 05-01-[address] Khanh Rodriguez Work Phone: [facility] Work Phone: Start: 04-19-[address] Nigel Rodriguez Work Phone: [facility] Work Phone: Start: 03-29-2023 Non-patient / Non-visit Dr. Sukhdev Rodriguez Work Phone: After Hours Family Medicine[facility] Start: 03-29-2023 End: 04-03-[address] Khanh Rodriguez Work Phone: [facility] Work Phone: Start: 03-29-2023 End: 04-03-[address] Khanh Rodriguez Work Phone: [facility] Work Phone: Start: 03-22-2023 Non-patient / Non-visit Dr. Sukhdev Rodriguez Work Phone: After Hours Family Medicine[facility] Start: 03-15-2023 Non-patient / Non-visit Dr. Sukhdev Rodriguez Work Phone: After Hours [facility] Start: 03-01-2023 Non-patient / Non-visit Dr. Sukhdev Rodriguez Work Phone: After Hours [facility] Medicine[facility] Start: 03-01-2023 End: 03-03-[address] Khanh Rodriguez Work Phone: [facility] Work Phone: Start: 03-01-2023 End: 03-03-[address] Khanh Rodriguez Work Phone: [facility] Work Phone: Start: 02-22-2023 Non-patient / Non-visit Dr. Sukhdev Rodriguez Work Phone: After Hours [facility] Medicine[facility] Start: 02-15-2023 Non-patient / Non-visit Dr. Sukhdev Rodriguez Work Phone: After Hours [facility] Medicine[facility] Start: 02-08-2023 End: 02-08-[address] Khanh Rodriguez Work Phone: [facility] Work Phone: Start: 02-08-2023 Non-patient / Non-visit Dr. Sukhdev Rodriguez Work Phone: [facility] Start: 02-01-2023 Non-patient / Non-visit Dr. Sukhdev Rodriguez Work Phone: [facility] Start: 02-01-2023 End: 02-01-[address] Khanh Rodriguez Work Phone: [facility] Work Phone: Start: 02-01-2023 End: 02-01-[address] Khanh Rodriguez Work Phone: [facility] Start: 01-25-2023 Non-patient / Non-visit Dr. Sukhdev Rodriguez Work Phone: [facility] Start: 01-20-2023 End: 01-20-[address] Khanh Rodriguez Work Phone: [facility] Work Phone: Start: 01-20-2023 End: 01-20-[address] Khanh Rodriguez Work Phone: [facility] Start: 10-18-2022 Orders Only Yoseph macias MD Work Phone: Orthopaedics Comment on above: Pain (Primary Dx) Start: 05-31-2022 End: 05-31-2022 ambulatory No Primary Care Physician [facility] Work Phone: Start: 05-31-2022 End: 05-31-2022 Patient encounter procedure No Primary Care Physician [facility] Start: 04-28-2022 End: 04-28-2022 ambulatory No Primary Care Physician [facility] Work Phone: Start: 04-28-2022 End: 04-28-2022 Discharged Recurring No Primary Care Physician [facility]-Physical Therapy Start: 04-28-2022 Registered Recurring No Primar y Care Physician [facility]-Physical Therapy Start: 04-13-2022 Registered Recurring No Primar y Care Physician [facility]-Physical Therapy Start: 04-11-2022 End: 04-11-2022 Patient encounter procedure No Primary Care Physician [facility] Start: 04-06-2022 End: 04-06-2022 Discharged Recurring No Primary Care Physician [facility]-Physical Therapy Start: 04-06-2022 Registered Recurring No Primar y Care Physician [facility]-Physical Therapy Start: 03-31-2022 End: 03-31-2022 Patient encounter procedure No Primary Care Physician [facility]-Outpatient Bone Densitometry Start: 03-25-2022 End: 03-25-2022 Patient encounter procedure No Primary Care Physician [facility] Start: 02-16-2022 End: 02-16-2022 Patient encounter procedure [facility]-Laboratory, Specimen Start: 10-26-2021 End: 10-26-2021 Juve Dickerson Work Phone: [facility] Start: 07-05-2021 End: 07-05-2021 Rosales Dickerson Work Phone: [facility] Start: 05-11-2021 End: 05-11-2021 Office outpatient visit 15 minutes Ihsan Franks Work Phone: [facility] Start: 04-15-2021 End: 04-15-2021 Office outpatient visit 15 minutes Charlotte Avery Work Phone: [facility] Start: 01-29-2021 End: 01-29-2021 Rosales Dickerson Work Phone: [facility] Start: 01-04-2021 End: 01-04-2021 Rosales Dickerson Work Phone: [facility] Start: 05-28-2020 End: 05-28-2020 Encounter for general adult medical examination without abnormal findings Delores Faria Work Phone: [facility] Start: 05-28-2020 End: 05-28-2020 Office outpatient visit 15 minutes Delores Faria Work Phone: [facility] Start: 02-03-2020 End: 02-03-2020 Subsequent hospital visit by physician Dipak Newby Work Phone: [facility] Comment on above: Arrived Start: 01-20-2020 End: 01-20-2020 Subsequent hospital visit by physician Dipak Newby Work Phone: [facility] [place] Comment on above: Arrived Start: 01-14-2020 End: 01-14-2020 Subsequent hospital visit by physician Dipak Newby Work Phone: [facility] [place] Comment on above: Arrived Start: 01-13-2020 End: 01-13-2020 Delores Faria Work Phone: [facility] [employer] [facility] Start: 01-13-2020 End: 01-13-2020 Office outpatient visit 25 minutes Delores Faria Work Phone: [facility] Start: 01-07-2020 End: 01-07-2020 Subsequent hospital visit by physician Dipak Newby Work Phone: [facility] Comment on above: Arrived Start: 12-23-2019 End: 12-23-2019 Subsequent hospital visit by physician Dipak Newby Work Phone: [facility] Start: 12-23-2019 End: 12-23-2019 Subsequent hospital visit by physician Dipak Newby Work Phone: [facility] Comment on above: Arrived Start: 06-24-2019 End: 06-24-2019 Abdirahman Conley Work Phone: No Location Start: 05-29-2019 End: 05-29-2019 Abdirahman Conley Work Phone: [facility] Start: 05-27-2019 End: 05-27-2019 Encounter for general adult medical examination without abnormal findings Abdirahman Conley Work Phone: [employer] Start: 05-27-2019 End: 05-27-2019 Office outpatient visit 25 minutes Abdirahman Jarvis Work Phone: [employer] Start: 05-17-2019 End: 05-17-2019 Delores Faria Work Phone: [facility] Start: 01-29-2019 End: 01-29-2019 Office outpatient visit 25 minutes Abdirahman [place] Work Phone: [employer] Start: 06-11-2018 End: 06-11-2018 Gregorio Rodrigues Work Phone: [employer] Start: 05-23-2018 End: 05-23-2018 Encounter for general adult medical examination without abnormal findings Abdirahman [place] Work Phone: [employer] Work Phone: Start: 05-23-2018 End: 05-23-2018 Office outpatient visit 15 minutes Abdirahman [place] Work Phone: [employer] Start: 04-10-2018 End: 04-10-2018 Office outpatient new 30 minutes Abdirahman Jarvis Work Phone: [employer] Start: 08-16-2017 End: 08-16-2017 Ambulatory [facility] Encounter for genera l adult medical examination without abnormal findings Juve Dickerson MD [employer] Procedures Date Procedure Procedure Detail Performing Clinician Start: 05-30-2025 Echocardiography NAYAN BLACKMON Start: 05-13-2025 MRI of lumbar spine Dr. Khanh Rodriguez MD Work Phone: Start: 05-08-2025 X-ray of lumbosacral spine Dr. Khanh Rodriguez MD Work Phone: Start: 01-28-2025 Cul bact xcpt urine blood/stool aerobic isol Gt Yin DO Work Phone: Start: 01-23-[address] Nigel Rodriguez MD Work Phone: Start: 06-17-2024 Measurement of renal function Dr. Tasneem Rodriguez MD Work Phone: Comment on above: GFR Calc Start: 04-03-2024 Dup-scan xtr veins complete bilateral study Gt Yin DO Work Phone: Start: 04-02-2024 Radex hip unilateral with pelvis 2-3 views Abdirahman Wright [employer] SERVICE SUPERVISOR Work Phone: Start: 12-28-[address] Khanh [...] 03-31-2022 Dual energy X-ray absorptiometry No Prim alexander Care Physician Start: 05-11-2021 End: 05-11-2021 BP scrn [...] 05-28-2020 Fall Risk Screening With Falls Juve aals MD Start: 05-28-2020 End: 05-28-2020 Fall Screening [...] 01-14-2020 WOUND CENTER TREATMENT NOTE Dipak Grier [email or web address] Work Phone: Start: 01-13-2020 End: 01-13-2020 Collection [...] 12-23-2019 WOUND CENTER TREATMENT NOTE Dipak Grier [email or web address] Work Phone: Start: 05-27-2019 End: 05-27-2019 BP [...] 1996 panel - Serum or Plasma Beatriz Alanis PT Start: 09-15-2008 Colonoscopy Yoseph Briones MD Work Phone: Anaerobic microbial culture Anaerobic microbial culture Dr. Khanh Rodriguez Work Phone: Investigation of tra nsfusion reaction Microbial culture, routine Microbial culture, routine D matt Rodriguez Work Phone: Plan of Treatment Date Care Activity Detail Author Start: 04-25-2031 Urine microalbumin profile DTa P,Tdap,Td Vaccine (2 - Td or Tdap) [facility] Start: 06-04-2025 End: 06-04-2025 Patient encounter procedure 06/04/2025 3:00 PM EDT Office Visit Vascular Surgery [address] [id number] Gt Yin, DO [address] [place] [address] Venous ulcer [I83.009, L97.909] Vascular Surgery Comment on above: Venous ulcer [I83.00 9, L97.909] Start: 06-03-2025 End: 06-03-2025 ambulatory 06/03/2025 1:30 PM EDT OT/PT/Speech Visit [facility] [address] [place], [place] [id number] Darrius Newton, PT [address] [place] [address] Spinal stenosis of lumbar region with neurogenic claudication [M48.062] [facility] Comment on above: Spinal stenosis of l umbar region with neurogenic claudication [M48.062] Start: 06-03-2025 End: 06-03-2025 Patient encounter procedure 06/03/2025 10:30 AM EDT OT/PT/Speech Visit [facility] [address] [place] [address] [phone] Amanda Soto PT [address] [place] [address] Venous ulcer [I83.009, L97.909] [facility] Comment on above: Venous ulcer [I83.00 9, L97.909] Start: 05-27-2025 End: 05-27-2025 Patient encounter procedure 05/27/2025 2:50 PM EDT Office Visit Plastic Surgery [address] [place] [address] Nayan Blackmon MD [address] [address] f/u drainage of venous ulcer-Amanda Soto referring Plastic Surgery Comment on above: f/u drainage of veno us ulcer-Amanda Soto referring Start: 05-27-2025 End: 05-27-2025 Patient encounter procedure 05/27/2025 10:30 AM EDT OT/PT/Speech Visit [facility] [address] [place] [address] Amanda Soto, PT [address] [place] [address] Venous ulcer [I83.009, L97.909] [facility] Comment on above: Venous ulcer [I83.00 9, L97.909] Start: 05-21-2025 Thyroid stimulating hormone measurement [facility] Start: 05-20-2025 End: 05-20-2025 Patient encounter procedure 05/20/2025 10:30 AM EDT OT/PT/Speech Visit [facility] [address] [place] [address] Amanda Soto, PT [address] [place] [address] Venous ulcer [I83.009, L97.909] [facility] Comment on above: Venous ulcer [I83.00 9, L97.909] Start: 05-13-2025 End: 05-13-2025 Patient encounter procedure 05/13/2025 10:30 AM EDT OT/PT/Speech Visit [facility] [address] [place] [address] Amanda Soto, PT [address] [place] [address] Venous ulcer [I83.009, L97.909] [facility] Comment on above: Venous ulcer [I83.00 9, L97.909] Start: 05-08-2025 X-ray of lumbosacral spine L/S Spine Min 4 Views [facility] Start: 05-08-2025 XR Spine Lumbar and Sacrum GE 4 Views [facility] Start: 05-06-2025 End: 05-06-2025 Patient encounter procedure 05/06/2025 10:30 AM EDT OT/PT/Speech Visit [facility] [address] [place] [address] Amanda Soto, PT [address] [place] [address] Venous ulcer [I83.009, L97.909] [facility] Comment on above: Venous ulcer [I83.00 9, L97.909] Start: 05-05-2025 Influenza vaccination C [facility] Start: 04-29-2025 Prothrombin time [facility] Start: 04-29-2025 [facility] Start: 04-29-2025 End: 04-29-2025 Patient encounter procedure 04/29/2025 10:30 AM EDT OT/PT/Speech Visit [facility] [address] [place] [address] Amanad Soto, PT [address], [place] [id number] Venous ulcer [I83.009, L97.909] [facility] Comment on above: Venous ulcer [I83.00 9, L97.909] Start: 04-28-2025 End: 04-28-2025 Patient encounter procedure 04/28/2025 9:30 AM EDT OT/PT/Speech Visit [facility] [address] [place] [address] Amanda Soto, PT [address] [place] [address] Venous ulcer [I83.009, L97.909] [facility] Comment on above: Venous ulcer [I83.00 9, L97.909] Start: 04-22-2025 End: 04-22-2025 Patient encounter procedure 04/22/2025 10:30 AM EDT OT/PT/Speech Visit [facility] [address] [place] [address] Amanda Soto, PT [address] [place] [address] Venous ulcer [I83.009, L97.909] [facility] Comment on above: Venous ulcer [I83.00 9, L97.909] Start: 04-15-2025 End: 04-15-2025 Patient encounter procedure 04/15/2025 10:30 AM EDT OT/PT/Speech Visit [facility] [address] [place] [address] Amanda Soto, PT [address] [place] [address] Venous ulcer [I83.009, L97.909] [facility] Comment on above: Venous ulcer [I83.00 9, L97.909] Start: 04-08-2025 End: 04-08-2025 Patient encounter procedure Plastic Surgery Comment on above: Right Lower Lateral leg Venous ulcer [I83.00 9, L97.909] Start: 04-01-2025 End: 04-01-2025 Patient encounter procedure 04/01/2025 10:30 AM EDT OT/PT/Speech Visit [facility] [address] [place] [address] Amanda Soto, PT [address] [place] [address] Venous ulcer [I83.009, L97.909] [facility] Comment on above: Venous ulcer [I83.00 9, L97.909] Start: 03-25-2025 End: 03-25-2025 Patient encounter procedure 03/25/2025 10:30 AM EDT OT/PT/Speech Visit [facility] [address] [place] [address] Amanda Soto, PT [address] [place] [address] Venous ulcer [I83.009, L97.909] [facility] Comment on above: Venous ulcer [I83.00 9, L97.909] Start: 03-18-2025 End: 03-18-2025 Patient encounter procedure Plastic Surgery Comment on above: Right Lower Lateral leg Venous ulcer [I83.00 9, L97.909] Start: 03-18-2025 End: 03-18-2025 Patient encounter procedure 03/18/2025 10:30 AM EDT OT/PT/Speech Visit [facility] [address] [place] [address] Amanda Soto, PT [address] [place] [address] Venous ulcer [I83.009, L97.909] [facility] Comment on above: Venous ulcer [I83.00 9, L97.909] Start: 03-11-2025 End: 03-11-2025 Patient encounter procedure 03/11/2025 10:30 AM EDT OT/PT/Speech Visit [facility] [address] [place] [address] Amanda Soto, PT [address] [place] [address] Venous ulcer [I83.009, L97.909] [facility] Comment on above: Venous ulcer [I83.00 9, L97.909] Start: 03-03-2025 End: 03-03-2025 Patient encounter procedure 03/03/2025 3:30 PM EDT OT/PT/Speech Visit [facility] [address] [place] [address] Amanda Soto, PT [address] [place] [address] Venous ulcer [I83.009, L97.909] [facility] Comment on above: Venous ulcer [I83.00 9, L97.909] Start: 03-03-2025 End: 03-03-2025 Patient encounter procedure 03/03/2025 9:30 AM EDT OT/PT/Speech Visit [facility] [address] [place] [address] Amanda Soto, PT [address] [place] [address] Venous ulcer [I83.009, L97.909] [facility] Comment on above: Venous ulcer [I83.00 9, L97.909] Start: 02-25-2025 End: 02-25-2025 Patient encounter procedure Plastic Surgery Comment on above: Right Lower Lateral leg Patient confirmed- Start: 02-24-2025 End: 02-24-2025 Patient encounter procedure 02/24/2025 3:30 PM EDT OT/PT/Speech Visit [facility] [address] [place] [address] Amanda Soto, PT [address] [place] [address] Venous ulcer [I83.009, L97.909] [facility] Comment on above: Venous ulcer [I83.00 9, L97.909] Start: 02-18-2025 End: 02-18-2025 Admission to same day surgery center 02/18/2025 1:00 PM EDT - 02/18/2025 2:00 PM EDT Surgery [facility] [address] [place] [address] [place] [address], [address] [address] INSERT PICC W/O PORT OR PUMP ADULT W/O IMAGING GUIDANCE [facility] Comment on above: INSERT PICC W/O PORT OR PUMP ADULT W/O IMAGING GUIDANCE Start: 02-18-2025 End: 02-18-2025 Insertion picc w/o img gdn 5 yr/> INSERT PICC W/O PORT OR PUMP ADULT W/O IMAGING GUIDANCE Infection 02/18/2025 1:00 PM EDT [facility] Start: 02-18-2025 Subsequent hospital visit by physician 02/18/2025 1:00 PM EDT Hospital Encounter [facility] [address] [place] [address] [place] [address], [address] [address] Infection [B99.9] [facility] Comment on above: Infection [B99.9] Start: 02-17-2025 End: 02-17-2025 Patient encounter procedure 02/17/2025 3:30 PM EDT OT/PT/Speech Visit [facility] [address] [place] [address] Amanda Soto, PT [address] [place] [address] Venous ulcer [I83.009, L97.909] [facility] Comment on above: Venous ulcer [I83.00 9, L97.909] Start: 02-11-2025 End: 02-11-2025 Patient encounter procedure Plastic Surgery Comment on above: Patient confirmed- new to us abnormal w ound cultures- Dr. Yin referring Start: 02-10-2025 End: 02-10-2025 Patient encounter procedure 02/10/2025 3:30 PM EDT OT/PT/Speech Visit [facility] [address] [place] [address] Amanda Soto, PT [address] [place] [address] Venous ulcer [I83.009, L97.909] [facility] Comment on above: Venous ulcer [I83.00 9, L97.909] Start: 02-10-2025 End: 02-10-2025 Patient encounter procedure 02/10/2025 10:30 AM EDT OT/PT/Speech Visit [facility] [address] [place] [address] Amanda Soto, PT [address] [place] [address] Venous ulcer [I83.009, L97.909] [facility] Comment on above: Venous ulcer [I83.00 9, L97.909] Start: 02-03-2025 End: 02-03-2025 Patient encounter procedure 02/03/2025 3:30 PM EDT OT/PT/Speech Visit [facility] [address] [place] [address] Amanda Soto, PT [address] [place] [address] Venous ulcer [I83.009, L97.909] [facility] Comment on above: Venous ulcer [I83.00 9, L97.909] Start: 01-22-2025 Patient referral [facility] Work Phone: Start: 01-20-2025 End: 01-20-2025 Patient encounter procedure 01/20/2025 9:30 AM EDT OT/PT/Speech Visit [facility] [address], [place] [id number] Amanda Soto, PT [address], [place] [id number] Venous ulcer [I83.009, L97.909] [facility] Comment on above: Venous ulcer [I83.00 9, L97.909] Start: 01-13-2025 End: 01-13-2025 Patient encounter procedure 01/13/2025 9:30 AM EDT OT/PT/Speech Visit [facility] [address] [place] [address] Amanda Soto, PT [address] [place] [address] Venous ulcer [I83.009, L97.909] [facility] Comment on above: Venous ulcer [I83.00 9, L97.909] Start: 12-26-2024 Diabetes Screening Diabetes Screenin g [facility] Start: 09-04-2024 Advance Directive Discussion Advance Directive Discussion [facility] Start: 06-26-2024 End: 06-26-2024 Patient encounter procedure 06/26/2024 2:30 PM EDT OT/PT/Speech Visit [facility] [address] [place] [address] Amanda Soto, PT [address] [place] [address] Venous ulcer [I83.009, L97.909] [facility] Comment on above: Venous ulcer [I83.00 9, L97.909] Start: 06-25-2024 End: 06-25-2024 Patient encounter procedure 06/25/2024 9:30 AM EDT OT/PT/Speech Visit [facility] [address] [place] [address] Amanda Soto, PT [address] [place] [address] Venous ulcer [I83.009, L97.909] [facility] Comment on above: Venous ulcer [I83.00 9, L97.909] Start: 06-18-2024 End: 06-18-2024 Patient encounter procedure 06/18/2024 8:30 AM EDT OT/PT/Speech Visit [facility] [address] [place] [address] Amanda Soto, PT [address] [place] [address] Venous ulcer [I83.009, L97.909] [facility] Comment on above: Venous ulcer [I83.00 9, L97.909] Start: 06-12-2024 End: 06-12-2024 Patient encounter procedure 06/12/2024 1:30 PM EDT OT/PT/Speech Visit [facility] [address] [place] [address] Amanda Soto, PT [address] [place] [address] Venous ulcer [I83.009, L97.909] [facility] Comment on above: Venous ulcer [I83.00 9, L97.909] Start: 06-12-2024 End: 06-12-2024 Patient encounter procedure 06/12/2024 10:20 AM EDT Office Visit [facility] [address] [address] Monse Merlos [facility] [address] [place] [address] Degenerative scoliosis [M41.50] [facility] Comment on above: Degenerative scolios is [M41.50] Start: 06-04-2024 End: 06-04-2024 Patient encounter procedure 06/04/2024 9:30 AM EDT OT/PT/Speech Visit [facility] [address] [place] [address] Amanda Soto, PT [address] [place] [address] Venous ulcer [I83.009, L97.909] [facility] Comment on above: Venous ulcer [I83.00 9, L97.909] Start: 05-28-2024 End: 05-28-2024 Patient encounter procedure 05/28/2024 9:30 AM EDT OT/PT/Speech Visit [facility] [address] [place] [address] Amanda Soto, PT [address] [place] [address] Venous ulcer [I83.009, L97.909] [facility] Comment on above: Venous ulcer [I83.00 9, L97.909] Start: 05-21-2024 End: 05-21-2024 Patient encounter procedure 05/21/2024 9:30 AM EDT OT/PT/Speech Visit [facility] [address] [place] [address] Amanda Soto, PT [address] [place] [address] Venous ulcer [I83.009, L97.909] [facility] Comment on above: Venous ulcer [I83.00 9, L97.909] Start: 05-15-2024 End: 05-15-2024 Patient encounter procedure 05/15/2024 10:20 AM EDT Office Visit [facility] [address] [address] Monse Merlos [facility] [address] [place] [address] Degenerative scoliosis [M41.50] [facility] Comment on above: Degenerative scolios is [M41.50] Start: 05-14-2024 End: 05-14-2024 Patient encounter procedure 05/14/2024 9:30 AM EDT OT/PT/Speech Visit [facility] [address] [place] [address] Amanda Soto, PT [address] [place] [address] Venous ulcer [I83.009, L97.909] [facility] Comment on above: Venous ulcer [I83.00 9, L97.909] Start: 05-10-2024 End: 05-10-2024 Patient encounter procedure 05/10/2024 12:30 PM EDT OT/PT/Speech Visit [facility] [address] [place] [address] Amanda Soto, PT [address] [place] [address] Venous ulcer [I83.009, L97.909] [facility] Comment on above: Venous ulcer [I83.00 9, L97.909] Start: 05-08-2024 End: 05-08-2024 Patient encounter procedure 05/08/2024 9:30 AM EDT OT/PT/Speech Visit [facility] [address] [place] [address] Amanda Soto, PT [address] [place] [address] Venous ulcer [I83.009, L97.909] [facility] Comment on above: Venous ulcer [I83.00 9, L97.909] Start: 05-05-2024 Covid-19 Vaccine ( season) Covid-19 Vaccine ( season) [facility] Start: 05-05-2024 Covid-19 Vaccine ( season) Covid-19 Vaccine ( season) [facility] Start: 05-05-2024 Covid-19 Vaccine ( season) Covid-19 Vaccine ( season) [facility] Start: 05-05-2024 Influenza vaccination C [facility] Start: 04-30-2024 End: 04-30-2024 Patient encounter procedure [facility] Comment on above: *use referral [id number]* Venous ulcer [I83.00 9, L97.909] Start: 04-30-2024 End: 04-30-2024 ambulatory 04/30/2024 8:15 AM EDT OT/PT/Speech Visit [facility] [address] [place] [address] Liseth Alanis, PT Other malaise [R53.81] [facility] Comment on above: Other malaise [R53.8 1] Start: 04-24-2024 End: 04-24-2024 Patient encounter procedure 04/24/2024 9:30 AM EDT OT/PT/Speech Visit [facility] [address] [place] [address] Amanda Soto, PT [address] [place] [address] Venous ulcer [I83.009, L97.909] [facility] Comment on above: Venous ulcer [I83.00 9, L82.902] Start: 04-23-2024 End: 04-23-2024 ambulatory 04/23/2024 2:15 PM EDT OT/PT/Speech Visit [facility] [address] [place] [address] Liseth Alanis, PT Other malaise [R53.81]/Back Pain [facility] Comment on above: Other malaise [R53.8 1]/Back Pain Start: 04-23-2024 End: 04-23-2024 Patient encounter procedure 04/23/2024 10:30 AM EDT Office Visit [facility] [address] [place] [address] Gt Yin, DO [address] [place] [address] Venous (peripheral) insufficiency [I87.2]; Symptomatic varicose veins of both lower extremities [I83.893] [facility] Comment on above: Venous (peripheral) insufficiency [I87.2]; Symptomatic varicose veins of both lower extremities [I83.893] Start: 04-22-2024 End: 04-22-2024 Patient encounter procedure [facility] Comment on above: *use referral [id number]* Venous ulcer [I83.00 9, L97.909] Start: 04-16-2024 End: 04-16-2024 Patient encounter procedure [facility] Comment on above: *use referral [id number]* Venous ulcer [I83.00 9, L97.909] Start: 04-16-2024 End: 04-16-2024 ambulatory 04/16/2024 10:30 AM EDT OT/PT/Speech Visit [facility] [address] [facility] [place] [address] Liseth Alanis, PT Back Pain [facility] Comment on above: Back Pain Start: 04-10-2024 End: 04-10-2024 Patient encounter procedure 04/10/2024 11:30 AM EDT OT/PT/Speech Visit [facility] [address] [place] [address] Amanda Soto, PT [address] [place] [address] *use referral [id number]* [facility] Comment on above: *use referral [id number]* Start: 04-04-2024 End: 04-04-2024 Patient encounter procedure 04/04/2024 2:30 PM EDT OT/PT/Speech Visit [facility] [address] [place] [address] Amanda Soto, PT [address] [place] [address] *use referral [id number]* [facility] Comment on above: *use referral [id number]* Start: 04-03-2024 End: 04-03-2024 Patient encounter procedure 04/03/2024 2:30 PM EDT Office Visit [facility] [address] [place] [address] Venous (peripheral) insufficiency [I87.2]; Symptomatic varicose veins of both lower extremities [I83.893] [facility] Comment on above: Venous (peripheral) insufficiency [I87.2]; Symptomatic varicose veins of both lower extremities [I83.893] Start: 04-02-2024 End: 04-02-2024 Patient encounter procedure Radiology Comment on above: hip pain L hip pain Start: 04-02-2024 End: 04-02-2024 Patient encounter procedure [facility] Comment on above: *use referral [id number]* Venous ulcer (HCC) [I83.009, L97.909] Venous (peripheral) insufficiency [I87.2] 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] lt hip replacement *use referral [id number]* Start: 03-26-2024 End: 03-26-2024 Patient encounter procedure [facility] Comment on above: *use referral [id number]* Venous ulcer (HCC) [I83.009, L97.909] Venous (peripheral) insufficiency [I87.2] 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] *use referral [id number]* Start: 03-26-2024 End: 03-26-2024 ambulatory 03/26/2024 11:15 AM EDT OT/PT/Speech Visit [facility] [address] [place] [address] Liseth Alanis, PT Dx: Other malaise [R53.81 (ICD-10-CM)] [facility] Comment on above: Dx: Other malaise [R 53.81 (ICD-10-CM)] Start: 03-20-2024 End: 03-20-2024 ambulatory 03/20/2024 12:00 PM EDT OT/PT/Speech Visit [facility] [address] [place] [address] Liseth Alanis, PT Dx: Other malaise [R53.81 (ICD-10-CM)] [facility] Comment on above: Dx: Other malaise [R 53.81 (ICD-10-CM)] Start: 03-19-2024 End: 03-19-2024 Patient encounter procedure [facility] Comment on above: *use referral [id number]* Venous ulcer (HCC) [I83.009, L97.909] Venous (peripheral) insufficiency [I87.2] 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] *use referral [id number]* Start: 03-13-2024 End: 03-13-2024 ambulatory 03/13/2024 12:45 PM EDT OT/PT/Speech Visit [facility] [address] [place] [address] Liseth Alanis, PT Dx: Other malaise [R53.81 (ICD-10-CM)] [facility] Comment on above: Dx: Other malaise [R 53.81 (ICD-10-CM)] Start: 02-27-2024 End: 02-27-2024 ambulatory 02/27/2024 5:15 PM EDT OT/PT/Speech Visit [facility] [address] [place] [address] Liseth Alanis, PT Dx: Other malaise [R53.81 (ICD-10-CM)] [facility] Comment on above: Dx: Other malaise [R 53.81 (ICD-10-CM)] Start: 02-27-2024 End: 02-27-2024 Patient encounter procedure 02/27/2024 8:30 AM EDT Office Visit [facility] [address] [place] [address] Gt Yin, DO [address] [place] [address] WALTER Galaviz [facility] (patient to have medical records transferred) [facility] Comment on above: WALTER perez [facility] (patient to have medical records transferred) Start: 02-20-2024 End: 02-20-2024 ambulatory 02/20/2024 10:30 AM EDT OT/PT/Speech Visit [facility] [address] [place] [address] Liseth Alanis, PT Other malaise [R53.81 (ICD-10-CM)] [facility] Comment on above: Other malaise [R53.8 1 (ICD-10-CM)] Start: 02-13-2024 End: 02-13-2024 ambulatory 02/13/2024 10:30 AM EDT OT/PT/Speech Visit [facility] [address] [place] [address] Liseth Alanis, PT Other malaise [R53.81 (ICD-10-CM)] [facility] Comment on above: Other malaise [R53.8 1 (ICD-10-CM)] Start: 02-06-2024 End: 02-06-2024 ambulatory 02/06/2024 8:15 AM EDT OT/PT/Speech Visit [facility] [address] [place] [address] Liseth Alanis, PT Other malaise [R53.81 (ICD-10-CM)] [facility] Comment on above: Other malaise [R53.8 1 (ICD-10-CM)] Start: 01-05-2024 Patient referral [facility] Work Phone: Start: 01-05-2024 Procedure [facility] Start: 12-30-2023 Referral to service [facility] Start: 12-30-2023 Patient discharge [facility] Start: 12-28-2023 Following clinical p athway protocol [facility] Start: 12-28-2023 [facility] Start: 12-28-2023 Wound care [facility] Start: 12-28-2023 Leukocyte reduced re d blood cells [facility] Start: 12-28-2023 [facility] Start: 12-28-2023 Administration of bl ood product [facility] Start: 12-27-2023 End: 12-28-2023 [facility] Start: 12-27-2023 Consultation for treatment [facility] Start: 12-27-2023 Following clinical p athway protocol [facility] Start: 12-27-2023 Ambulation without limitation [facility] Start: 12-27-2023 Assessment of risk o f venous thromboembolism [facility] Start: 12-27-2023 Insertion of cathete r into peripheral vein [facility] Start: 12-27-2023 Measuring intake and output [facility] Start: 12-27-2023 Providing care accor ding to standard [facility] Start: 12-27-2023 Referral to gastroenterology service [facility] Start: 12-27-2023 Referral to occupati onal therapist [facility] Start: 12-27-2023 Referral to service [facility] Start: 12-27-2023 Verification routine [facility] Start: 12-27-2023 Hospital admission, emergency, from emergency room, medical nature [facility] Start: 12-27-2023 Admission procedure [facility] Start: 12-27-2023 [facility] Start: 11-16-2023 Patient referral [facility] Work Phone: Start: 11-15-2023 Thiamine measurement [facility] Start: 10-26-2023 Patient discharge [facility] Start: 09-04-2023 Advance Directive Discussion Advance Directive Discussion [facility] Start: 09-04-2023 Behavioral Health Screening Behavioral Health Screening [facility] Start: 07-10-2023 Patient referral [facility] Work Phone: Start: 06-13-2023 Patient discharge [facility] Start: 06-12-2023 End: 06-12-2023 Referral to service [facility] Start: 06-12-2023 Anesthesia radical/modified radical breast ANESTH SURGERY OF BREAST [facility] Start: 06-12-2023 Mast modf rad w/ax l ymph nod w/wo pect/aleks min MAST MOD RAD [facility] Start: 06-12-2023 Catheterization of vein [facility] Start: 06-12-2023 Consultation for treatment [facility] Start: 06-12-2023 Deep breathing and coughing exercises [facility] Start: 06-12-2023 Elevation of head of bed [facility] Start: 06-12-2023 End: 06-12-2023 Following clinical pathway protocol [facility] Start: 06-12-2023 Incentive spirometry [facility] Start: 06-12-2023 Patient education [facility] Start: 06-12-2023 Referral to self hel p service [facility] Start: 06-12-2023 Taking patient vital signs [facility] Start: 06-12-2023 Vital signs measurements [facility] Start: 06-12-2023 Wound care [facility] Start: 06-12-2023 [facility] Start: 06-12-2023 Admission procedure [facility] Start: 06-12-2023 Patient referral to dietitian [facility] Start: 05-08-2023 Patient referral [facility] Work Phone: Start: 05-05-2023 Covid-19 Vaccine ( season) Covid-19 Vaccine () [facility] Start: 05-05-2023 Covid-19 Vaccine ( season) Covid-19 Vaccine ( season) [facility] Start: 04-26-2023 Patient referral [facility] Work Phone: Start: 04-26-2023 CBC W Auto Different ial panel - Blood [facility] Start: 04-26-2023 [facility] Start: 01-20-2023 Patient referral [facility] Work Phone: Start: 09-04-2022 ADVANCE DIRECTIVE DISCUSSION ADVANCE DIRECTIVE DISCUSSION [facility] Start: 09-04-2022 DEPRESSION ASSESSMENT DEPRESSION ASS ESSMENT [facility] Start: 05-05-2022 Influenza vaccination INFLUENZA (#1) [facility] Start: 03-25-2022 Patient referral [facility] Work Phone: Start: 06-08-2021 Shingrix Vaccine (2 of 2) Francis grix Vaccine (2 of 2) [facility] Start: 04-15-2021 Patient referral Referrals: [place] [facility], [facility] Start: 05-28-2020 Patient referral Screening Mammo, [facility], [facility] Start: 05-12-2020 DIABETES SCREEN DIABETES SCREEN [facility] Start: 05-05-2020 Influenza vaccinatio n given INFLUENZA VACCINE (Season Ended) [facility] Start: 02-17-2020 End: 02-17-2020 Appointment 02/17/2020 Appointment Wound Care Dipak Newby DO [address] [place] [address] [phone] Isi Paul RN [facility] Wound [facility] Start: 01-28-2020 [facility] ([id number]) , Appointment on: , Sent on: Medical [facility] Start: 01-28-2020 End: 01-28-2020 Appointment 01/28/2020 Appointment Wound Dipak Bundy DO [address] [place] [address] [phone] Isi Paul RN [facility] Start: 01-20-2020 End: 01-20-2020 Appointment 01/20/2020 [place] [address] [place] [address] [phone] Isi Paul RN [facility] Wound [facility] Start: 01-14-2020 End: 01-14-2020 Appointment 01/14/2020 [place] [address] [place] [address] [phone] Isi Paul RN [facility] Wound [facility] Start: 01-13-2020 Patient referral DX MAMMO INCL CAD UNI L Medical [facility] [employer] Start: 01-06-2020 End: 01-06-2020 Appointment 01/06/2020 Appointment Wound Dipak Bundy DO [address] [place] [address] [phone] Ileana De La Cruz RN [facility] Wound [facility] Start: 06-24-2019 Patient referral DX MAMMO INCL CAD B I [facility] Start: 05-29-2019 [facility] Start: 05-27-2019 CCP IgG Antibo dies ([id number]), Ordered on: [facility] Start: 05-17-2019 Patient referral SCR MAMMO BI INCL C AD [facility] Start: 05-05-2019 Influenza vaccinatio n given INFLUENZA VACCINE (#1) [facility] Start: 10-05-2018 Medicare Annual Well ness Visit Medicare Annual Wellness Visit [facility] Start: 05-23-2018 Patient referral Referrals: Dermatology. Ashwin Duran MD [facility] Start: 2016 BONE DENSITY BONE DENSITY [facility] Start: 2016 Fall risk assessment FALL RISK Ge [facility] Start: 2016 Glaucoma screening GLAUCOMA/EY E EXAM AGE 65+ [facility] Start: 2016 Osteoporosis risk assessment done BONE DENSITY SCREENING [facility] Start: 2016 Pneumococcal polysaccharide vaccine (product) PNEUMONIA VACCINE (PCV13 PPSV23) (1 of 2 - PCV13) [facility] Start: 2016 PNEUMOCOCCAL: 65+ (1 - PCV) PNEUMOCOCCAL: 65+ (1 - PCV) [facility] Start: 2016 Screening for osteoporosis Bone Dens ity Screening [facility] Start: 04-29-2016 Lipid panel Lipid Screening [facility] Start: 04-29-2016 LIPID SCREEN LIPID SCREEN [facility] Start: 05-05-2012 Mammography MAMMOGRAM [facility] Start: 05-05-2012 Screening for malign ant neoplasm of breast Mammogram Screening [facility] Start: 2011 RSV Vaccine (1 - 1-d ose 60+ series) RSV Vaccine (1 - 1-dose 60+ series) [facility] Start: 2011 RSV Vaccine (1 - Ris k 60-74 years 1-dose series) RSV Vaccine (1 - Risk 60-74 years 1-dose series) [facility] Start: 2011 Varicella-zoster vac cine (product) ADULT VZV VACCINE [facility] Start: 09-15-2009 Colonoscopy COLONOSCOPY [facility] Start: 09-15-2009 COLORECTAL CANCER SCREENING COLORECTAL CANCER SCREENING [facility] Start: 09-15-2009 Screening for malign ant neoplasm of colon [facility] Start: 2001 Colonoscopy COLONOSCOPY 10 YR Genes [facility] Start: 2001 Screening for malign ant neoplasm of colon [facility] Start: 2001 SHINGLES VACCINE (1 of 2) FRANCIS GLES VACCINE (1 of 2) [facility] Start: 2001 SHINGRIX VACCINE (1 of 2) FRANCIS GRIX VACCINE (1 of 2) [facility] Start: 09-05-2001 Urine microalbumin profile DTA P,TDAP,TD (1 - Tdap) [facility] Start: 1996 COLOGUARD (FIT-DNA) COLOGUARD (FIT-D NA) [facility] Start: [address] COLONOGRAPHY [facility] Start: 1996 FECAL OCCULT BLOOD FECAL OCCULT BLOO D [facility] Start: 1996 Screening for malign ant neoplasm of colon [facility] Start: 1996 SIGMOIDOSCOPY SIGMOIDOSCOPY [facility] Start: 1991 Screening mammography MAMMOGRAM G [facility] Start: 1972 Tetanus, diphtheria and acellular pertussis vaccination TDAP/TD ADULT [facility] Start: 1970 Pneumococcal Vaccine : 50+ (1 of 2 - PCV) Pneumococcal Vaccine: 50+ (1 of 2 - PCV) [facility] Start: 1969 ANNUAL WELLNESS VISIT ANNUAL WELLNES S VISIT [facility] Start: 1969 Depression Screening Depression Scre ing [facility] Start: 1963 Adult depression scr [facility] DEPRESSION SCREENING [facility] Start: 1957 Pneumococcal Vaccine : 65+ (1 of 2 - PCV) Pneumococcal Vaccine: 65+ (1 of 2 - PCV) [facility] Start: 03-24-1952 COVID-19 VACCINE (#1) COVID-19 VACCI NE (#1) [facility] Start: 1951 Hepatitis C screening HEPATITIS C [facility] Alanine aminotransfe rase [Enzymatic activity/volume] in Serum or Plasma [facility] Albumin [Mass/volume ] in Serum or Plasma [facility] Alkaline phosphatase [Enzymatic activity/volume] in Serum or Plasma [facility] brachial press ure index [facility] Aspartate aminotrans ferase [Enzymatic activity/volume] in Serum or Plasma [facility] Bacteria identified in Wound by Culture BACTERIAL CULTURE AND GRAM STAIN, ABSCESS AND WOUND (AEROBIC CULTURE) Microbiology Routine Venous ulcer of right lower extremity with varicose veins ([facility]) 01/28/2025 11:30 AM EDT [facility] Work Phone: Bacteria identified in Wound by Culture BACTERIAL CULTURE AND GRAM STAIN, ABSCESS AND WOUND (AEROBIC CULTURE) Microbiology Routine Venous stasis ulcer of calf with fat layer exposed, unspecified laterality, unspecified whether varicose veins present ([facility]) 05/20/2025 11:51 AM EDT [facility] Work Phone: Bilirubin, total measurement [facility] BUN/Creatinine ratio [facility] Calcium [Mass/volume ] in Serum or Plasma [facility] Carbon dioxide, tota l [Moles/volume] in Serum or Plasma [facility] CBC W Auto Different ial panel - Blood [facility] CBC W Auto Different ial panel - Blood [facility] CBC W Auto Different ial panel - Blood [facility] CBC W Auto Different ial panel - Blood [facility] CBC W Auto Different ial panel - Blood [facility] Chloride [Moles/volu me] in Serum or Plasma [facility] Clostridioides diffi cile DNA [Presence] in Unspecified specimen by JAMESON with probe detection [facility] metabo lic 1999 panel - Serum or Plasma [facility] Comprehensive metabo lic 1999 panel - Serum or Plasma [facility] Comprehensive metabo lic 1999 panel - Serum or Plasma [facility] Creatinine [Moles/vo lume] in Serum or Plasma [facility] DXA Bone [Mass/Area] Bone density [facility] Work Phone: DXA Bone [Mass/Area] Bone density [facility] Gastrointestinal pat hogens panel - Stool by JAMESON with probe detection [facility] Glucose [Mass/volume ] in Serum or Plasma [facility] Hematocrit [Volume Fraction] of Blood [facility] Hemoglobin [Mass/vol ume] in Blood [facility] Leukocytes [#/volume ] in Blood [facility] Mean corpuscular hemoglobin concentration determination [facility] Mean corpuscular hemoglobin determination [facility] Measurement of renal function [facility] MG Breast - bilatera l Screening [facility] Natriuretic peptide. B prohormone N-Terminal [Mass/volume] in Serum or Plasma [facility] Neutrophil count [facility] Neutrophil percent differential count [facility] Patient referral [facility] Work Phone: Platelets [#/volume] in Blood [facility] Potassium [Moles/vol ume] in Serum or Plasma [facility] Red blood cell count [facility] Red cell distributio n width determination [facility] Sodium [Moles/volume ] in Serum or Plasma [facility] Total protein measurement [facility] Urea nitrogen [Mass/volume] in Serum or Plasma [facility] Urinalysis complete panel - Urine [facility] US Breast limited [facility] US Carotid arteries [facility] Heart [facility] Heart [facility] End: 02-26-2025 US Vein - bilateral US VENOUS INCOMPETENCY [facility] Routine Venous (peripheral) insufficiency Symptomatic varicose veins of both lower extremities 1 Occurrences starting 02/27/2024 until 02/26/2025 [facility] Work Phone: Comment on above: 1 Occurrences starti ng 02/27/2024 until 02/26/2025 Vitamin B6 measurement [facility] Vitamin D, 25-hydrox y measurement [facility] End: 12-23-2019 Wound culture Wound culture Microbiology Routine One Time for 1 Occurrences starting 12/23/2019 until 12/23/2019 [facility] Comment on above: One Time for 1 Occur rences starting 12/23/2019 until 12/23/[address] [facility] End: 01-14-2020 Wound culture Wound culture Microbiology Routine One Time for 1 Occurrences starting 01/14/2020 until 01/14/2020 [facility] Comment on above: One Time for 1 Occur rences starting 01/14/2020 until 01/14/2020 End: 11-17-2023 XR HIP GENERAL 3V PELV/AP/LAT LEFT XR HIP GENERAL 3V PELV/AP/LAT LEFT Radiology Routine Pain 1 Occurrences starting 10/18/2022 until 11/17/2023 [facility] Work Phone: Comment on above: 1 Occurrences starti ng 10/18/2022 until 11/17/2023 XR Lumbar spine 2 or 3 Views [facility] Clin [facility] Immunizations Immunization Date Immunization Notes Care Provider Destiny arias 06-16-2022 Covid Pfizer Bivalen t Booster Dr. Khanh Rodriguez MD Work Phone: [facility] 06-12-[address] Khanh Rodriguez MD Work Phone: [facility] 04-25-2021 tetanus toxoid, redu leon diphtheria toxoid, and acellular pertussis vaccine, adsorbed Dr. Khanh Rodriguez MD Work Phone: [facility] 04-13-[address] Khanh Rodriguez MD Work Phone: [facility] 01-05-2021 Covid (Pfizer) Dr. Khanh Rodriguez MD Work Phone: [facility] 12-15-2020 Covid (Pfizer) Dr. Khanh Rodriguez MD Work Phone: [facility] 07-19-2002 hepatitis A vaccine, pediatric/adolescent dosage, [address] Khanh Rodriguez MD Work Phone: [facility] 07-19-2002 hepatitis A vaccine, unspecified formulation Yoseph Briones MD Work Phone: [facility] 07-19-2002 hepatitis B vaccine, adult dosage Yoseph Briones MD Work Phone: [facility] 10-23-2001 hepatitis A vaccine, pediatric/adolescent dosage, [address] Khanh Rodriguez MD Work Phone: [facility] 10-23-2001 hepatitis A vaccine, unspecified formulation Yoseph Briones MD Work Phone: [facility] 10-23-2001 hepatitis B vaccine, adult dosage Yoseph Briones MD Work Phone: [facility] 09-04-2001 tetanus and diphther ia toxoids, not adsorbed, for adult use Yoseph Briones MD Work Phone: [facility] Work Phone: Payers Date Payer Category Payer Self-pay [id number] 2021 Private Health Insurance MMO MEDICARE SUPPLEMENT [id number] 2021 Unknown [id number] 2018 Medicare xxxxxxxxxxxx [id number] 2018 Unknown [id number]. [id number] 2016 Medicare [id number]. [id number] 2016 Medicare [id number] Medicare MEDICARE MEDICAR E PART A & B xxxxxxxxxxx Effective for all dates [address] [place] [address] Medicare xxxxxxxxxxx [id number] Unknown [id number] 2.16.840.1.811351.3.579.2. 462 Unknown [id number] 2.16840.1.332741.3.579.2. 462 Unknown [id number] 2.840.1.657194.3.579.2. 462 Unknown [id number] 2.16840.1.004012.3.579.2. 462 Unknown [id number] 2.16840.1.929127.3.579.2. 462 Unknown [id number] 2.840.1.782761.3.579.2. 462 Unknown [id number] 2.840.1.071666.3.579.2. 462 Unknown [id number] 2.840.1.661647.3.579.2. 462 Unknown [id number] 2.840.1.888672.3.579.2. 462 Unknown [id number] 2.840.1.275853.3.579.2. 462 Unknown [id number] 2.840.1.138801.3.579.2. 462 Unknown [id number] 2.840.1.992612.3.579.2. 462 Unknown [id number] 2.840.1.263991.3.579.2. 462 Unknown [id number] .840.1.599025.3.579.2. 462 Unknown [id number] .840.1.385514.3.579.2. 462 Unknown [id number] .840.1.926218.3.579.2. 462 Unknown [id number] 2.840.1.262094.3.579.2. 462 Unknown [id number] 2.840.1.916383.3.579.2. 462 Unknown [id number] 2.840.1.143943.3.579.2. 462 Unknown [id number] 2.840.1.622787.3.579.2. 462 Unknown [id number] 2..840.1.209103.3.579.2. 462 Unknown [id number] 2.16840.1.664208.3.579.2. 462 Unknown [id number] 2.840.1.521347.3.579.2. 462 Social History Date Type Detail Facility Tobacco smoking status NHIS Unknown if ever smoked [facility] Sex Assigned At Not on file [facility] Start: 10-26-2021 End: 12-30-2023 Tobacco smoking status NHIS Unknown if ever smoked [facility] Start: 10-26-2021 Alcohol intake Alcohol [facility] [employer] [facility] Start: 1950 [facility] [employer] Start: 04-04-2012 End: 05-07-2025 Tobacco smoking status NYIS Never smoked tobacco [facility] Start: 04-04-2012 End: 02-27-2024 Tobacco use and exposure Smokeless tobacco non-user [facility] Start: 06-05-2019 End: 04-08-2025 Alcohol intake Current drinker of alcohol (finding) [facility] Start: 03-28-2017 Alcohol Comment 3 glasses of w ine daily-quit 05/2016 [facility] Start: 06-05-2019 End: 01-30-2024 History of Social function [facility] Start: 06-05-2019 End: 01-30-2024 Tobacco use panel [facility] Start: 08-05-2012 National Score (1-100), lower number is lower risk 99 [facility] Start: 07-04-2019 Gender identity Identifies as female gender (finding) [facility] Start: 07-04-2019 Sexual orientation Heterosexual (fin ding) [facility] NEGATED: Highlighted row [facility] Medical Equipment Procedure Code Equipment Code Equipment Origin al Text Equipment Identifier Dates EGD, with monitored anesthesia care Oesophageal endoscopic ligator, single-useHaemorrhoi d ligator [id number] FDA Start: 12-28-2023 Collagen haemost atic agent, non-antimicrobial [id number] FDA Start: 06-12-2023 Ligation clip, metallic [id number] FDA Start: 06-12-2023 Ligation clip, metallic [id number] FDA Start: 06-12-2023 Goals Date Patient Goal Desired Activity /State Personal health goal Functional Status Date Assessment Result Facility 12-30-2023 Functional status Ambulates [facility] Work Phone: 12-29-2023 Functional status Tolerates Activity Well [facility] Work Phone: 06-13-2023 Functional status Chair [facility] Work Phone: Mental Status Date Assessment Result Facility 04-25-2025 Cognitive function Voice/Name [facility] Work Phone: 03-28-2025 Cognitive function Voice/Name [facility] Work Phone: 01-31-2025 Cognitive function Voice/Name [facility] Work Phone: 12-30-2023 Cognitive function Voice/Name [facility] Work Phone: 06-13-2023 Cognitive function Level Of Cons ciousness Awake;Alert;Appropriate;Follow s Commands [facility] Work Phone: 06-13-2023 Cognitive function Voice/Name [facility] Work Phone: Clinical Notes 05-28-2020 to 06-03-2025 Amanda Soto, PT - 05/20/2025 11:40 AM Amanda Tipton, PT - 05/13/2025 11:40 AM Amanda Tipton, PT - 05/06/2025 11:40 AM EDT Note Date & Type Note Facility 06-03-2025 Note [facility] 06-02-2025 Note [facility] 06-01-2025 Note [facility] 06-01-2025 Note [facility] 05-31-2025 Note [facility] 05-31-2025 Note [facility] 05-30-2025 Note [facility] 05-29-2025 Note HNO ID: [id number] Author: NAUN DAVIS DPM Service: Podiatry Author Type: Physician Type: Plan of Care Filed: 05/29/2025 20:10 Note Text: Plan for OR debridement of wounds RIGHT and LEFT lower leg tomorrow with Dr Dougherty. NPO at midnight [facility] 05-29-2025 Note [facility] 05-29-2025 Note [facility] 05-27-2025 Note [facility] 05-27-2025 Note [facility] 05-27-2025 Note [facility] 05-20-2025 History of Presen t illness Narrative Episode Visit Count: 20 Therapist That Will Accept/Oversee The Plan Of Care: Amanda Soto Start of Care Date: 01/06/25 Onset Date: 08/14/24 (second week of August) Plan of Care Certification Date: 04/01/25 Next Certification Due Date: 07/05/25 Patient Identified by Name and Date of : Yes [facility] PHYSICAL THERAPY WOUND [...] (compression and elevation) Response To Pain Intervention: 7-8/ tender/sore/pain OBJECTIVE: Patient presents for follow-up wound [...] culture was taken. Conservative Sharp Debridement <20cm (89969): 5 mm curette used to selectively remove [...] removed from the wound bed Nonselective Debridement (83633): Cleansed the RIGHT LE with warm soapy [...] Compression Therapy (Multilayer Venous Wound Compression System) (60281): Skilled interventions: -Skilled knowledge of wound care [...] rendered are medically necessary. Noncontact Ultrasound Mist (95859): no charge (bundled) Selective Sharp Debridement <20cm (88159): 1 unit Nonselective debridement (33647): no charge (bundled) Multi-Layer Venous Wound Compression System (89270): 1 unit (untimed) Session Start Time : 1034 Session Stop Time : 1138 Total Time: 64 minutes Amanda Soto PT documented in this encounter [facility] 05-20-2025 Note [facility] 05-13-2025 History of Presen t illness Narrative Episode Visit Count: 19 Therapist That Will Accept/Oversee The Plan Of Care: Amanda Soto Start of Care Date: 01/06/25 Onset Date: 08/14/24 (second week of August) Plan of Care Certification Date: 04/01/25 Next Certification Due Date: 07/05/25 Patient Identified by Name and Date of : Yes [facility] PHYSICAL THERAPY WOUND [...] over news from a spinal MD in [place] that she feels like the patients bones [...] Partial thickness TREATMENT: Conservative Sharp Debridement <20cm (20061): 5 mm curette used to selectively remove [...] removed from the wound bed Nonselective Debridement (18449): dressings removed. Cleansed the RIGHT LE with [...] Compression Therapy (Multilayer Venous Wound Compression System) (51577): Skilled interventions: -Skilled knowledge of wound care [...] rendered are medically necessary. Noncontact Ultrasound Mist (65705): no charge (bundled) Selective Sharp Debridement <20cm (08676): 1 unit Nonselective debridement (63618): no charge (bundled) Multi-Layer Venous Wound Compression System (16899): 1 unit (untimed) Session Start Time : 1043 Session Stop Time : 1135 Total Time: 52 minutes Amanda Soto PT documented in this encounter [facility] 05-13-2025 Note [facility] 05-06-2025 History of Presen t illness Narrative Episode Visit Count: 18 Therapist That Will Accept/Oversee The Plan Of Care: Amanda Soto Start of Care Date: 01/06/25 Onset Date: 08/14/24 (second week of August) Plan of Care Certification Date: 04/01/25 Next Certification Due Date: 07/05/25 Patient Identified by Name and Date of : Yes [facility] PHYSICAL THERAPY WOUND [...] Wound Healing % -21 Drainage Description Serosanguineous-purulent (yellow-tonawanda green hue). Drainage Amount Large with Strikethrough Odor Mild Elif-Wound Treatment Vaseline;Zinc Oxide;Betadine Treatments Cleansed;Mechanical Debridement;PT Compression;PT Debridement;PT Mist Therapy Dressing Changed Changed State of Healing Early/partial granulation Wound Bed Granulation (%) 65 % Wound Bed Epithelium (%) 10 % Wound Bed Slough (%) 25 % (marbled slough and fibrotic tissue) Non-staged Wound Description Partial thickness TREATMENT: Conservative Sharp Debridement <20cm (88754): 5 mm curette used to selectively remove [...] removed from the wound bed Nonselective Debridement (36546): dressings removed. Cleansed the RIGHT LE with [...] Compression Therapy (Multilayer Venous Wound Compression System) (01527): Skilled interventions: -Skilled knowledge of wound care [...] Treatment/Symptom(s): See above Billing: Noncontact Ultrasound Mist (79126): no charge (bundled) Selective Sharp Debridement <20cm (47789): 1 unit Nonselective debridement (47876): no charge (bundled) Multi-Layer Venous Wound Compression System (66329): 1 unit (untimed) Session Start Time : 1047 Session Stop Time : 1143 Total Time: 56 minutes Amanda Soto PT documented in this encounter [facility] 05-06-2025 Note [facility] 04-29-2025 Evaluation note Diagnosis Onset Date Resolution Chronic pain chronic April 29, 2025 12:39pm Cirrhosis chronic April 29, 025 12:39pm Dyspnea chronic April 29 025 12:39pm Compression fracture of lumbar vertebra acute May 08, 025 1:03pm History of kyphoplasty acute Se pt2024 1:03pm Lumbar stenosis with neurogenic claudication acute Septembe r 2024 1:03pm Osteoporosis chronic May 1:03pm Cellulitis of right leg acute S eptember 2024 8:04am CHF (congestive heart failure) acute May 21, 2025 8:04am Compression fracture of lumbar vertebra acute May 21, 2025 8:04am Decompensated hepatic cirrhosis acute May 21, 2025 8:04am Osteoporosis chronic May 212024 8:04am [facility] Work Phone: 1(787) 115-790808-25-2025 History of Present illness Narrative* Amanda Soto, [...] by Name and Date of : Yes [facility] PHYSICAL THERAPY WOUND [...] Partial thickness TREATMENT: Conservative Sharp Debridement <20cm (95695): 5 mm curette used to selectively remove [...] removed from the wound bed Nonselective Debridement (32523): dressings removed. Cleansed the RIGHT LE with [...] Compression Therapy (Multilayer Venous Wound Compression System) (49190): Skilled interventions: -Skilled knowledge of wound care [...] Treatment/Symptom(s): See above Billing: Noncontact Ultrasound Mist (19580): no charge (bundled) Selective Sharp Debridement <20cm (71294): 1 unit Nonselective debridement (50347): no charge (bundled) Multi-Layer Venous Wound Compression System (05851): 1 unit (untimed) Session Start Time : 933 Session Stop Time : 1029 Total Time: 55 minutes Amanda Soto PT documented in this encounterMount Carmel Health System08-25-2025 [facility] 04-22-2025 History of Present illness Narrative* Amanda Soto, PT - 04/22/2025 11:33 AM EDT Episode Visit Count: 16 Therapist That Will Accept/Oversee The Plan Of Care: Amanda Charles Start of Care Date: 01/06/25 Onset Date: 08/14/24 (second week of August) Plan of Care Certification Date: 04/01/25 Next Certification Due Date: 07/05/25 Patient Identified by Name and Date of : Yes [facility] PHYSICAL THERAPY WOUND [...] (compression and elevation) Response To Pain Intervention: 02/11. burning OBJECTIVE: Patient presents for follow-up wound care treatment with the compression dressing intact. Minor strike-through drainage anterior ankle. WOUND STATUS: Wound 02/29/24 1600 Venous Ulcer Calf Distal;Right;Lateral (Active) Assessments 04/22/2025 11:00 AM Site Assessment Red;Yellow;[place]if-Wound Assessment Erythematous;Fragile;Hyperpigmented;[place];Moist ;Painful Wound Length (cm) 8.2 cm Wound [...] associated orders. TREATMENT: Conservative Sharp Debridement <20cm (84005): 5 mm curette used to selectively remove [...] removed from the wound bed Nonselective Debridement (20152): dressings removed. Cleansed the RIGHT LE with [...] Compression Therapy (Multilayer Venous Wound Compression System) (43498): Skilled interventions: -Skilled knowledge of wound care [...] See above Billing: Selective Sharp Debridement <20cm (69159): 1 unit Nonselective debridement (08688): no charge (bundled) Multi-Layer Venous Wound Compression System (91329): 1 unit (untimed) Session Start Time : 1042 Session Stop Time : 1133 Total Time: 51 minutes Amanda Soto PT documented in this encounterMount Carmel Health System08-19-2025 [facility] 04-15-2025 History of Present illness Narrative* Amanda Soto, PT - 04/15/2025 11:35 AM EDT Episode Visit Count: 15 Therapist That Will Accept/Oversee The Plan Of Care: Amanda Soto Start of Care Date: 01/06/25 Onset Date: 08/14/24 (second of August) Plan of Care Certification Date: 04/01/25 Next Certification Due Date: 07/05/25 Patient Identified by Name and Date of : Yes [facility] PHYSICAL THERAPY WOUND [...] (compression and elevation) Response To Pain Intervention: 6-03/13 ache/tender/sore OBJECTIVE: Patient presents for follow-up wound [...] associated orders. TREATMENT: Conservative Sharp Debridement <20cm (65654): 5 mm curette used to selectively remove [...] removed from the wound bed Nonselective Debridement (02850): dressings removed. Cleansed the RIGHT LE with [...] Compression Therapy (Multilayer Venous Wound Compression System) (86192): Skilled interventions: -Skilled knowledge of wound care [...] Treatment/Symptom(s): See above Billing: Noncontact Ultrasound Mist (61627): no charge (bundled) Selective Sharp Debridement <20cm (25115): 1 unit Nonselective debridement (01700): no charge (bundled) Multi-Layer Venous Wound Compression System (16289): 1 unit (untimed) Session Start Time : 1049 Session Stop Time : 1138 Total Time: 49 minutes Amanda Soto, PT documented in this encounterMount Carmel Health System08-12-2025 [facility] 04-08-2025 [facility]08-05-2025 [facility]08-05-2025 [id number] History of Present illness Narrative* Amanda Soto, [...] by Name and Date of : Yes [facility] PHYSICAL THERAPY WOUND [...] and elevation) Response To Pain Intervention: 03/13 sore/tender, burning PROMIS Scales 06/26/2024 05/28/2024 04/30/2024 [...] associated orders. TREATMENT: Conservative Sharp Debridement <20cm (30735): 5 mm curette used to selectively remove [...] removed from the wound bed Nonselective Debridement (89298): dressings removed. Cleansed the RIGHT LE with [...] Compression Therapy (Multilayer Venous Wound Compression System) (61177): Skilled interventions: -Skilled knowledge of wound care [...] Treatment/Symptom(s): See above Billing: Noncontact Ultrasound Mist (15198): no charge (bundled) Selective Sharp Debridement <20cm (72552): 1 unit Nonselective debridement (82506): no charge (bundled) Multi-Layer Venous Wound Compression System (52089): 1 unit (untimed) Session Start Time : 1056 Session Stop Time : 1143 Total Time: 47 minutes Amanda Soto PT documented in this encounterMount Carmel Health System07-29-2025 [facility] 03-25-2025 History of Present illness Narrative* Amanda Soto PT - 03/25/2025 11:40 AM EDT Episode Visit Count: 12 Therapist That Will Accept/Oversee The Plan Of Care: Amanda Soto Start of Care Date: 01/06/25 Onset Date: 08/14/24 (second week of August) Plan of Care Certification Date: 01/06/25 Next Certification Due Date: 03/27/25 Patient Identified by Name and Date of : Yes [facility] PHYSICAL THERAPY WOUND [...] comment (elevation, compression) Response To Pain Intervention: 7-04/13. sore OBJECTIVE: Patient presents for follow-up wound [...] associated orders. TREATMENT: Conservative Sharp Debridement <20cm (91337): 5 mm curette used to selectively remove [...] removed from the wound bed Nonselective Debridement (36095): dressings removed. Cleansed the RIGHT LE with [...] Compression Therapy (Multilayer Venous Wound Compression System) (48587): Skilled interventions: -Skilled knowledge of wound care [...] Treatment/Symptom(s): See above Billing: Noncontact Ultrasound Mist (36218): no charge (bundled) Selective Sharp Debridement <20cm (34637): 1 unit Nonselective debridement (46296): no charge (bundled) Multi-Layer Venous Wound Compression System (35309): 1 unit (untimed) Session Start Time : 1043 Session Stop Time : 1140 Total Time: 57 minutes Amanda Soto PT documented in this encounterMount Carmel Health System07-22-2025 [facility] 03-19-2025 History of Present illness Narrative* Amanda Soto, PT - 03/19/2025 1:35 PM EDT Episode Visit Count: 11 Therapist That Will Accept/Oversee The Plan Of Care: Amanda Soto Start of Care Date: 01/06/25 Onset Date: 08/14/24 (second week of August) Plan of Care Certification Date: 01/06/25 Next Certification Due Date: 03/27/25 Patient Identified by Name and Date of : Yes [facility] PHYSICAL THERAPY WOUND [...] elevation and compression) Response To Pain Intervention: 810 burning, sore, achy OBJECTIVE: Patient presents for [...] associated orders. TREATMENT: Conservative Sharp Debridement <20cm (40596): 5 mm curette used to selectively remove [...] removed from the wound bed Nonselective Debridement (74183): dressings removed. Cleansed the RIGHT LE with [...] Compression Therapy (Multilayer Venous Wound Compression System) (99937): Skilled interventions: -Skilled knowledge of wound care [...] Treatment/Symptom(s): See above Billing: Noncontact Ultrasound Mist (54272): no charge (bundled) Selective Sharp Debridement <20cm (01610): 1 unit Nonselective debridement (73053): no charge (bundled) Multi-Layer Venous Wound Compression System (21395): 1 unit (untimed) Session Start Time : 8 Session Stop Time : 1232 Total Time: 54 minutes Amanda Soto PT documented in this encounterMount Carmel Health System07-16-2025 [facility] 03-11-2025 History of Present illness Narrative* Amanda Soto, PT - 03/11/2025 11:42 AM EDT Episode Visit Count: 10 Therapist That Will Accept/Oversee The Plan Of Care: Amanda Soto Start of Care Date: 01/06/25 Onset Date: 08/14/24 (second week of August) Plan of Care Certification Date: 01/06/25 Next Certification Due Date: 03/27/25 Patient Identified by Name and Date of : Yes [facility] PHYSICAL THERAPY WOUND [...] associated orders. TREATMENT: Conservative Sharp Debridement <20cm (52039): 5 mm curette used to selectively remove [...] removed from the wound bed Nonselective Debridement (67712): dressings removed. Cleansed the RIGHT LE with [...] Compression Therapy (Multilayer Venous Wound Compression System) (93808): Skilled interventions: -Skilled knowledge of wound care [...] Treatment/Symptom(s): See above Billing: Noncontact Ultrasound Mist (18865): no charge (bundled) Selective Sharp Debridement <20cm (01801): 1 unit Nonselective debridement (53410): no charge (bundled) Multi-Layer Venous Wound Compression System (97799): 1 unit (untimed) Session Start Time : 1036 Session Stop Time : 1142 Total Time: 66 minutes Amanda Soto PT documented in this encounterMount Carmel Health System07-08-2025 [facility] 03-03-2025 [facility]06-30-2025 History of Present illness Narrative* Amanda [...] by Name and Date of : Yes [facility] PHYSICAL THERAPY WOUND TREATMENT AND PROGRESS REPORT PLAN OF CARE UPDATE: Mary Alice F Migdalia demonstrates minimal improvement in wound healing evidenced [...] associated orders. TREATMENT: Conservative Sharp Debridement <20cm (98947): 5 mm curette used to selectively remove [...] removed from the wound bed Nonselective Debridement (56591): dressings removed. Cleansed the RIGHT LE with [...] Compression Therapy (Multilayer Venous Wound Compression System) (02352): Skilled interventions: -Skilled knowledge of wound care [...] Treatment/Symptom(s): See above Billing: Noncontact Ultrasound Mist (85903): no charge (bundled) Selective Sharp Debridement <20cm (00072): 1 unit Nonselective debridement (82411): no charge (bundled) Multi-Layer Venous Wound Compression System (79483): 1 unit (untimed) Session Start Time : 932 Session Stop Time : 1028 Total Time: 56 minutes Amanda Soto PT documented in this encounterMount Carmel Health System06-24-2025 Telephone encounter Note * Telephone Encounter - Nikki Beth LPN - 02/25/2025 3:57 PM EDT Per Lorri-- PICC line care Cefepime changed to zosyn Labs rev and discussed. Plts low at 89 and WBC 3.[address] Rodriguez office to get baseline platelet and WBC. If dropped significantly then stop zosyn and remove line. Repeat labs on Follow up in the [facility] w ID in 3 weeks Continue aggressive [...] going to fax the summary visit to [facility]. I also called Mary with nursing and Tim with [facility] and gave the above orders. [facility]06-24-2025 Miscellaneous Notes* Telephone Encounter - Nikki Beth LPN - 02/25/2025 3:57 PM EDT Per Lorri-- PICC line care Cefepime changed to zosyn Labs rev and discussed. Plts low at 89 and WBC 3.[address] Rodriguez office to get baseline platelet and WBC. If dropped significantly then stop zosyn and remove line. Repeat labs on Follow up in the [facility] w ID in 3 weeks Continue aggressive [...] understanding and is in agreement. Leny from [facility]'s office sent me a secure chat message stating Lorri gave orders to stop the zosyn and nursing to remove the picc line. She's going to fax the summary visit to [facility]. I also called Mary with nursing and Tim with [facility] and gave the above orders. * Telephone Encounter - Nikki Beth LPN - 02/25/2025 9:10 AM EDT February 24 labs reviewed, no changes Wbc low at 3.5, plt low at 89 No comparisons The results were attached to the M drive Mary Alice has an appt today with Lorri at [facility]. She's currently on Zosyn 3.375g iv q6 with a stop date of March 03. * Telephone Encounter - Yamile Hoover RN - 02/18/2025 5:06 PM EDT Mary from [facility] called [phone] re: SOC for tomorrow as patient will miss doses. I lmovm and provided my direct line for call back. * Telephone Encounter - Yamile Hoover RN - 02/18/2025 2:09 PM EDT HC: [facility] [phone] * Telephone Encounter - Yamile Hoover RN - 02/17/2025 1:35 PM EDTSummary: NEW COPAT-MED CHANGE DX: R LOWER LEG INFECTION TX: ZOSYN 3.375GM IV Q6 STOP: 14 DAYS 03-03-25 LABS: CBC/D ALT CREAT QMON FU: [facility] PICC and first dose scheduled for 02-18-25 at 1:00. LMOVM for Whit at [facility] for SOC . * Telephone Encounter - Lexie Gentile - 02/17/2025 11:14 AM EDT I called Mary Alice and she will call [facility] for scheduling. Lexie Gentile * Telephone Encounter - Lexie Gentile - 02/17/2025 11:09 AM EDT I talked to [facility] and Eva is good with cost of Zosyn working on nursing. Lexie Gentile * Telephone Encounter - Lexie Gentile - 02/17/2025 10:45 AM EDT I called [facility] back to see where things are standing and waiting for a call back. Lexie Gentile * Telephone Encounter - Lexie Gentile - 02/17/2025 10:36 AM EDT Jerri from the [facility] called to see how things are moving with the PICC placement for Mary Alice because she called the [facility] said she feels her leg is getting worse. . I told Jerri I would check with [facility] and let Mary Alice know. . * Telephone Encounter - Yamile Hoover, KAREN - 02/13/2025 11:14 AM EDT Per email RS recommended two other IV abx options. Whit at [facility] checking cost * Telephone Encounter - Yamile Hoover RN - 02/12/2025 4:37 PM EDT EM RS: Seen in [facility] yesterday. Cefepime 2gm iv q8 for Rt lower leg inf. Per [facility], patient cannot afford IV abx cost of $652.54/week (she doesn't have insurance that will cover home IV abx). What would you like to do? * Telephone Encounter - Yamile Hoover RN - 02/11/2025 5:01 PM EDTSummary: COPAT ACTION-FOR IDC USE ONLY RS-[facility] DX: R LOWER LEG INFECTION TX: CEFEPIME 2GMIV Q8 STOP: 14 DAYS LABS: CBC/D ALT CREAT QMON FU: [facility] 02-25-25 Intake for pharmacy and nursing faxed to [facility] for benefit review. Notify IR when ok for them to schedule picc placement and first dose. documented in this encounterMount Carmel Health System06-24-2025 [facility] 02-25-2025 History of Present illness Narrative* [...] Repeat labs on Follow up in the [facility] w ID in 3 weeks Continue aggressive [...] SUBCUTANEOUS) Inject subcutaneously. Given by Infusion center [facility] Cholecalciferol, Vitamin D3, (VITAMIN D) 25 mcg [...] cancer 2022 Patient arrived via: ambulatory with [employer] [facility]/Nursing Facility: [facility] (IV therapy) Consent captured for debridement per (Provider) and good until Special Instructions (for example, patient stands at the bedside for exam/dressing): Anticoagulant Therapy: denies Living Situation (ie... 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 DME: [employer] , PH: [phone] SPECIAL NEEDS: Coordination of care Call to Dr. Rodriguez office, [facility] Emotional support N/A OR set-up N/A Paster Operator N/A Incontinence needs N/A DISCHARGED in stable condition to: ambulatory with rollator PLAN/ORDERS: Return to the wound center to see Dr. Lorri ARAUJO (Infectious Disease) in [address] Blackmon discussed getting previous labwork from [place] Repeat bloodwork February Continue aggressive nutritional support [...] Center Leny Saenz RN/DUNG documented in this encounterMount Carmel Health System06-24-2025 [facility] 02-25-2025 Instructions* Patient Instructions* Leny Saenz RN - 02/25/2025 2:32 PM EDT WOUND CARE INSTRUCTIONS- Mary Alice Ga Wound location: Right Lower Lateral leg [facility] (IV therapy) Continue wound care [...] of infection to the Wound Center at [phone] or go to the Emergency Department: Fever or chills Increased drainage Green or yellow drainage Foul odor Increased pain Hardness around the wound Redness, warmth or swelling of the surrounding tissue Color change to the wound Any streaking coming from the wound When contacting the wound center at the ([phone]): Leave a message that includes your full [...] Dr. Blackmon discussed getting previous labwork from [place] Repeat bloodwork February Continue aggressive nutritional support for optimal wound healing STOP IV Zosyn [facility] to remove PICC line Dr. Nayan Blackmon MD/jeremiah/dung documented in this encounterMount Carmel Health System06-24-2025 Telephone encounter Note * Telephone Encounter - Nikki Beth LPN - 02/25/2025 9:10 AM EDT February 24 labs reviewed, no changes Wbc low at 3.5, plt low at 89 No comparisons The results were attached to the charity: water Mary Alice has an appt today with Lorri at [facility]. She's currently on Zosyn 3.375g iv q6 with a stop date of March 03. [facility]06-23-[facility] History of Present illness Narrative* Amanda Soto, PT - 02/24/2025 4:50 PM EDT Episode Visit Count: 8 Therapist That Will Accept/Oversee The Plan Of Care: Amanda Charles Start of Care Date: 01/06/25 Onset Date: 08/14/24 (second week of August) Plan of Care Certification Date: 01/06/25 Next Certification Due Date: 03/27/25 Patient Identified by Name and Date of : Yes [facility] PHYSICAL THERAPY WOUND TREATMENT NOTE ASSESSMENT: Mary Alice Chucky Ga tolerated the session with expected soreness/discomfort [...] (compression and elevation) Response To Pain Intervention: 12/12--- slightly better with Lidocaine. Throbbing/burning/sore OBJECTIVE: Patient [...] associated orders. TREATMENT: Conservative Sharp Debridement <20cm (37407): 5 mm curette used to selectively remove [...] removed from the wound bed Nonselective Debridement (39626): dressings removed. Cleansed the RIGHT LE with [...] Compression Therapy (Multilayer Venous Wound Compression System) (24714): deferred application thisdate due to wound center/ID follow up tomorrow. Post Treatment/Symptom(s): See above Billing: Noncontact Ultrasound Mist (86211): no charge (bundled) Selective Sharp Debridement <20cm (42011): 1 unit Nonselective debridement (94514): no charge (bundled) Session Start Time : 1541 Session Stop Time : 1650 Total Time: 69 minutes Amanda Soto, PT documented in this encounterMount Carmel Health System06-23-2025 [facility] 02-18-2025 Telephone encounter Note* Telephone Encounter - Yamile Hoover, KAREN - 02/18/2025 5:06 PM EDT Mary from [facility] called [phone] re: SOC for tomorrow as patient will miss doses. I lmovm and provided my direct line for call back. [facility]06-17-2025 Telephone encounter Note* Telephone Encounter - Yamile Hoover RN - 02/18/2025 2:09 PM EDT : [place] [phone] [facility]06-17-2025 [facility]06-16-2025 [facility] 02-17-2025 History of Present illness Narrative* Amanda Soto, PT - 02/17/2025 4:27 PM EDT Episode Visit Count: 7 Therapist That Will Accept/Oversee The Plan Of Care: Amanda Soto Start of Care Date: 01/06/25 Onset Date: 08/14/24 (second week of August) Plan of Care Certification Date: 01/06/25 Next Certification Due Date: 03/27/25 Patient Identified by Name and Date of : Yes [facility] PHYSICAL THERAPY WOUND TREATMENT NOTE ASSESSMENT: Mary Alice F Migdalia tolerated the session with discomfort. Topical lidocaine [...] and elevation) Response To Pain Intervention: 8/10 burning, sore [...] associated orders. TREATMENT: Conservative Sharp Debridement <20cm (74862): 5 mm curette used to selectively remove [...] removed from the wound bed Nonselective Debridement (22849): dressings removed. Cleansed the RIGHT LE with [...] Compression Therapy (Multilayer Venous Wound Compression System) (42095): Skilled interventions: -Skilled knowledge of wound care [...] Treatment/Symptom(s): See above Billing: Noncontact Ultrasound Mist (31064): no charge (bundled) Selective Sharp Debridement <20cm (25663): 1 unit Nonselective debridement (66589): no charge (bundled) Multi-Layer Venous Wound Compression System (54325): 1 unit (untimed) Session Start Time : 1540 Session Stop Time : 1633 Total Time: 53 minutes Amanda Soto PT documented in this encounterMount Carmel Health System06-16-2025 Telephone encounter Note * Telephone Encounter - Yamile Hoover RN - 02/17/2025 1:35 PM EDTSummary: NEW COPAT-MED CHANGE DX: R LOWER LEG INFECTION TX: ZOSYN 3.375GM IV Q6 STOP: 14 DAYS 03-03-25 LABS: CBC/D ALT CREAT QMON FU: [facility] PICC and first dose scheduled for 02-18-25 at 1:00. LMOVM for Whit at [facility] for SOC . [facility]06-16-[facility] Telephone encounter Note* Telephone Encounter - Lexie Gentile - 02/17/2025 11:14 AM EDT I called Mary Alice and she will call [facility] for [place]. Lexie Gentile [facility]06-16-2025 Telephone encounter Note* Telephone Encounter - Lexie Gentile - 02/17/2025 11:09 AM EDT I talked to [facility] and Eva is good with cost of Zosyn working on nursing. Lexie Gentile [facility]06-16-20[facility] Telephone encounter Note* Telephone Encounter - Lexie Gentile - 02/17/2025 10:45 AM EDT I called delia Sherman back to see where things are standing and waiting for a call back. Lexie Gentile [facility]06-16-20[facility] Telephone encounter Note* Telephone Encounter - Ileana [...] chills, or feeling ill at this time. [facility]06-16-2025 Miscellaneous Notes* Telephone Encounter - Ileana Molina [...] ill at this time. documented in this encounterMount Carmel Health System06-16-2025 Telephone encounter Note * Telephone Encounter - Lexie Gentile - 02/17/2025 10:36 AM EDT Jerri from the [facility] called to see how things are moving with the PICC placement for Mary Alice because she called the [facility] said she feels her leg is getting worse. . I told Jerri I would check with I and let Mary Alice know. . [facility]06-12-20[facility] Telephone encounter Note* Telephone Encounter - Yamile Hoover RN - 02/13/2025 11:14 AM EDT Per email RS recommended two other IV abx options. Whit at [facility] checking cost [facility]06-11-2025 Telephone encounter Note* Telephone Encounter - Yamile Hoover RN - 02/12/2025 4:37 PM EDT EM RS: Seen in [facility] yesterday. Cefepime 2gm iv q8 for Rt lower leg inf. Per I, patient cannot afford IV abx cost of $652.54/week (she doesn't have insurance that will cover home IV abx). What would you like to do? [facility]06-10-[facility] Telephone encounter Note* Telephone Encounter - Yamile Hoover RN - 02/11/2025 5:01 PM EDTSummary: COPAT ACTION-FOR IDC USE ONLY RS-[facility] DX: R LOWER LEG INFECTION TX: CEFEPIME 2GMIV Q8 STOP: 14 DAYS LABS: CBC/D ALT CREAT QMON [facility] [facility] Intake for pharmacy and nursing faxed to [facility] for benefit review. Notify IR when ok for them to schedule picc placement and first dose. [facility]06-10[facility]2025 [facility]06-10-2025 History of Present illness Narrative* Nayan [...] SUBCUTANEOUS) Inject subcutaneously. Given by Infusion center [facility] Cholecalciferol, Vitamin D3, (VITAMIN D) 25 mcg [...] Therapy: denies Living Situation (ie... 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 weekly wraps from Amanda Soto DME: [employer] , PH: [phone] SPECIAL NEEDS: Coordination of care Amanda Soto PT Emotional support N/A OR set-up N/A Paster Operator N/A Incontinence needs N/A DISCHARGED in stable [...] consult the [facility] documented in this encounterMount [facility]el [facility]06-10-2025 Instructions* Patient Instructions* Ayanna Staton RN - [...] of infection to the Wound Center at [phone] or go to the Emergency Department: Fever or chills Increased drainage Green or yellow drainage Foul odor Increased pain Hardness around the wound Redness, warmth or swelling of the surrounding tissue Color change to the wound Any streaking coming from the wound When contacting the wound center at the ([phone]): Leave a message that includes your full [...] Dr. Nayan Blackmon MD/mjl/lt documented in this encounterMount Carmel [facility]06-10-[facility] History of Present illness Narrative* Amanda Soto, PT - 02/10/2025 11:40 AM EDT Episode Visit Count: 6 Therapist That Will Accept/Oversee The Plan Of Care: Amanda Soto Start of Care Date: 01/06/25 Onset Date: 08/14/24 (second week of August) Plan of Care Certification Date: 01/06/25 Next Certification Due Date: 03/27/25 Patient Identified by Name and Date of : Yes [facility] PHYSICAL THERAPY WOUND [...] associated orders. TREATMENT: Conservative Sharp Debridement <20cm (59937) and >20cm (48087): 5 mm curette used to selectively remove [...] removed from the wound bed Nonselective Debridement (45286): dressings removed. Cleansed the RIGHT LE with [...] Treatment/Symptom(s): See above Billing: Noncontact Ultrasound Mist (15398): no charge Selective Sharp Debridement <20cm (14976): 1 unit Selective Sharp Debridement >20cm (08456): 1 unit Nonselective debridement (26455): no charge Session Start Time : 1035 Session Stop Time : 1138 Total Time: 63 minutes Amanda Soto PT documented in this encounterMount Carmel Health System06-09-2025 [facility] 02-03-2025 History of Present illness Narrative* [...] by Name and Date of : Yes [facility] PHYSICAL THERAPY WOUND [...] associated orders. TREATMENT: Conservative Sharp Debridement <20cm (18825): 5 mm curette used to selectively remove [...] removed from the wound bed Nonselective Debridement (60668): dressings removed. Cleansed the RIGHT LE with [...] Compression Therapy (Multilayer Venous Wound Compression System) (93163): Skilled interventions: -Skilled knowledge of wound care [...] Treatment/Symptom(s): See above Billing: Noncontact Ultrasound Mist (07892): no charge (bundled) Selective Sharp Debridement <20cm (11340): 1 unit Nonselective debridement (07027): no charge (bundled) Multi-Layer Venous Wound Compression System (31999): 1 unit (untimed) Session Start Time : 154 Session Stop Time : 1644 Total Time: 60 minutes Amanda Soto PT documented in this encounterMount Carmel Health System06-02-2025 [facility] 01-28-2025 [facility]05-27-2025 History of Present illness Narrative* Amanda Soto, PT - 01/28/2025 11:24 AM EDT Episode Visit Count: 4 Therapist That Will Accept/Oversee The Plan Of Care: Amanda Soto Start of Care Date: 01/06/25 Onset Date: 08/14/24 (second week of August) Plan of Care Certification Date: 01/06/25 Next Certification Due Date: 03/27/25 Patient Identified by Name and Date of : Yes [facility] PHYSICAL THERAPY WOUND TREATMENT NOTE ASSESSMENT: Mary Alice aG tolerated the session with expected pain/sensitivity. Increased [...] off the bed. Reports vascular testing in [place] was ok. Also having issues with her spousewhich makes sleeping interrupted. She feels exhausted. Pain Tool: Verbal (Numeric Rating or Visual Analog Scale) Pain Level: 7 Pain Location: Leg-Right Description: Burning, Sore, Aching, Tenderness (stinging) Duration: Continuous Intervention/Comfort measure: Medication, Reposition, Relaxation, Distractions, Emotional Support/Reassurance, Positioning, Other: See comment (compression and elevation as tolerated) Response To Pain Intervention: 04/13 burning, sore [...] associated orders. TREATMENT: Conservative Sharp Debridement <20cm (87753): 5 mm curette used to selectively remove [...] removed from the wound bed Nonselective Debridement (02677): dressings removed. RIGHT LE blotted dry and [...] Compression Therapy (Multilayer Venous Wound Compression System) (35986): Skilled interventions: -Skilled knowledge of wound care [...] Treatment/Symptom(s): See above Billing: Noncontact Ultrasound Mist (48146): no charge (bundled) Selective Sharp Debridement <20cm (59188): 1 unit Nonselective debridement (08470): no charge (bundled) Multi-Layer Venous Wound Compression System (12405): 1 unit (untimed) Session Start Time : 1033 Session Stop Time : 1138 Total Time: 65 minutes Amanda Soto PT documented in this encounterMount Carmel Health System05-21-2025 Evaluation note* Diagnosis Onset Date Resolution Status Admit Date Back pain acute January 22, 2025 11:42am Compression fracture of lumb ar vertebra acute January 22, 2025 1 1:42am Breast cancer acute January 23, 2 025 12:32pm [facility] Work Phone: 1(947) 808-148505-21-2025 Evaluation note* Diagnosis Onset Date Resolution Status Admit Date Back pain acute January 22, 2025 11:42am Compression fracture of lumb ar vertebra acute January 22, 2025 1 1:42am Breast cancer acute January 23 12:32pm Chronic pain chronic April 29, 2025 12:39pm Cirrhosis chronic April 29 12:39pm Dyspnea chronic April 29 12:39pm [facility] Work Phone: 1(471) 114-927205-21-2025 Evaluation note* Diagnosis Onset Date Resolution Status Admit Date Back pain acute January 22, 2025 11:42am Compression fracture of lumb ar vertebra acute January 22, 2025 1 1:42am Breast cancer acute January 23 025 12:32pm Chronic pain chronic April 29, 2025 12:39pm Cirrhosis chronic April 29 025 12:39pm Dyspnea chronic April 29 12:39pm Compression fracture of lumb ar vertebra acute May 08 1:03pm History of kyphoplasty acute Se pt2024 1:03pm Lumbar stenosis with neurogenic claudication acute 2024 1:03pm Osteoporosis chronic May 1:03pm CHF (congestive heart failure) acute May 21, 2025 8:04am Compression fracture of lumb ar vertebra acute May 21, 2025 8:04am Decompensated hepatic cirrhosis acute May 21, 2025 8:04am Osteoporosis chronic May 212024 8:04am [facility] Work Phone: 1(204) 712-631305-19-2025 [facility]05-12-2025 History of Present illness Narrative* Amanda Soto, PT - 01/13/2025 10:35 AM EDT Episode Visit Count: 2 Therapist That Will Accept/Oversee The Plan Of Care: Amanda Soto Start of Care Date: 01/06/25 Onset Date: 08/14/24 (second week of August) Plan of Care Certification Date: 01/06/25 Next Certification Due Date: 03/27/25 Patient Identified by Name and Date of : Yes [facility] PHYSICAL THERAPY WOUND [...] Response To Pain Intervention: pain remains high-- 04/13 OBJECTIVE: Patient presents for follow-up wound care [...] associated orders. TREATMENT: Conservative Sharp Debridement <20cm (27955) & >20cm (67832): 5 mm curette used to selectively remove [...] removed from the wound bed Nonselective Debridement (85770): dressings removed. RIGHT LE cleansed with warm [...] Compression Therapy (Multilayer Venous Wound Compression System) (29389): Skilled interventions: -Skilled knowledge of wound care [...] Treatment/Symptom(s): See above Billing: Noncontact Ultrasound Mist (88183): no charge (bundled) Selective Sharp Debridement <20cm (09567): 1 unit Selective Sharp Debridement >20cm (80819): 1 unit Nonselective debridement (57017): no charge (bundled) Multi-Layer Venous Wound Compression System (26151): 1 unit (untimed) Session Start Time : 940 Session Stop Time : 1033 Total Time: 53 minutes Amanda Soto PT documented in this encounterMount Carmel Health System05-12-2025 [facility] 01-06-2025 History of Present illness Narrative* [...] by Name and Date of : Yes [facility] PHYSICAL THERAPY WOUND [...] of Visits Planned: 24 Planned Treatment Interventions: Self-usp management (44581), Patient/Family/Caregiver Education, Wound Selective debridement <20cm, Selective [...] patient/family. SUBJECTIVE: Pt states after she left [place] in the late fall, her R leg was doing really well. She was compliant with her compression dressing. But, she had issues when her spouse went back to the hospital, was not doing well with her support stockings as she could not get them off by herself. The wound re-opened. Tried care in [place], but the wound worsened. Back in [place] until next fall. Having ravi hard time [...] nearly closed prior to patient's return to [place] Assessment:: + risk due to orthopedic [...] States/Identifies TREATMENT: Evaluation Conservative Sharp Debridement <20cm (92030) & >20cm (84693): 5 mm curette used to selectively remove [...] removed from the wound bed Nonselective Debridement (96178): home dressings removed. RIGHT LE cleansed with [...] Compression Therapy (Multilayer Venous Wound Compression System) (60878): Skilled interventions: -Skilled knowledge of wound care [...] See abov Billing: Evaluation - Moderate Complexity (44478) Noncontact Ultrasound Mist (81480): no charge (bundled) Selective Sharp Debridement <20cm (35876): 1 unit Selective Sharp Debridement >20cm (69204): 1 unit Nonselective debridement (81007): no charge (bundled) Multi-Layer Venous Wound Compression System (94825): 1 unit (untimed) Session Start Time : 938 Session Stop Time : 1045 Total time: 67 minutes Amanda Soto PT documented in this encounterMount Carmel Health System05-05-2025 [facility] 06-26-2024 [facility]10-23-2024 History of Present illness Narrative* Amanda [...] by Name and Date of : Yes [facility] PHYSICAL THERAPY WOUND TREATMENT AND DISCONTINUANCE OF CARE PLAN OF CARE UPDATE: Patients RIGHT LE wounds are nearly resolved. The medial wounds are closed and stable. The lateral wound is 99% closed. Great overall progress has been made. Care is being discontinued as patient is leaving to return to [place] this weekend. Patient has been educated on self care principles once the current compression dressing is removed. Patient to seek additional wound care services as needed after she gets to [place]. Patient is pleased with overall improvement and [...] tenderness is noted. Patient voices understanding of rn long term care edema management via compression garments, leg elevation,and exercise. MOSTLY MET: pt voices understanding and intent to comply. PLAN: discontinue PT due to patient relocation to [place] SUBJECTIVE: Patient has much back pain. Is leaving for [place] on Monday. Is seeing a technical specialist cytogenetics the [place] she gets there for potential kyphoplasty. Patient [...] associated orders. TREATMENT: Conservative Sharp Debridement <20cm (32956): 3 mm curette used to remove slough [...] prn -<20cm2 nonviable tissue removed Nonselective Debridement (92754): The dressing was removed. The RIGHT LE [...] Compression Therapy (Multilayer Venous Wound Compression System) (03720): Skilled interventions: -Skilled knowledge of wound care [...] home per herusual. Self Care/ Home Management (63776): education on removal of the compression dressing [...] to follow up with wound care in [place] pending wound status. Skilled Intervention Skilled judgment in the selection of proper self care/home management based on clinical presentation, deficits, and needs. Educated the patient regarding recommendations and provided verbal and feedback instruction to facilitate compliance. Reviewed patient specific diagnosis in relation to activities of daily living/home management. Post Treatment/Symptom(s): See above Adverse event? No Billing: Noncontact Ultrasound Mist (44847): no charge (bundled) Selective Sharp Debridement <20cm (44449): 1 unit Nonselective debridement (23069): no charge (bundled) Self care/ Home Management (17434): 1:1 time: 1 unit: 8-22 mins Multi-Layer Venous Wound Compression System (63541): 1 unit (untimed) Session Start Time : 1434 Session Stop Time : 1530 Total Time: 56 minutes Amanda Soto PT documented in this encounterMount Carmel Health System10-15-2024 History of Present illness Narrative* Amanda Soto, PT - 06/18/2024 9:25 AM EDT Episode Visit Count: 16 Medicare visits current year: 16 Therapist That Will Accept/Oversee The Plan Of Care: Amanda Soto Start of Care Date: 01/24/24 Onset Date: 01/23/21 Plan of Care Certification Date: 05/28/24 Next Certification Due Date: 08/27/24 Patient Identified by Name and Date of : Yes [facility] PHYSICAL THERAPY WOUND TREATMENT NOTE ASSESSMENT: patient's RIGHT LE is progressing nicely. The medial wound cluster remains closed and is stable. The lateral wound is reducing in size. PLAN FOR NEXT VISIT: recheck next week. Continue with active wound care until patient departs for [place] SUBJECTIVE: Patient having much more issues with her back than her leg. States she still has some tenderness/soreness/twinges of pain, but her back is bothering her more than anything else. Still planning on leaving for [place] on Jun 29. Pain Tool: Verbal (Numeric [...] associated orders. TREATMENT: Conservative Sharp Debridement <20cm (16546): 3 mm curette used to remove slough [...] prn -<20cm2 nonviable tissue removed Nonselective Debridement (59397): The dressing was removed. The RIGHT LE [...] Compression Therapy (Multilayer Venous Wound Compression System) (81962): Skilled interventions: -Skilled knowledge of wound care [...] Adverse event? No Billing: Noncontact Ultrasound Mist (76267): no charge (bundled) Selective Sharp Debridement <20cm (22502): 1 unit Nonselective debridement (06325): no charge (bundled) Multi-Layer Venous Wound Compression System (50770): 1 unit (untimed) Session Start Time : 836 Session Stop Time : 923 Total Time: 47 minutes Amanda Soto PT documented in this encounterMount Carmel Health System10-15-2024 [facility] 06-12-2024 History of Present illness Narrative* Amanda Soto, PT - 06/12/2024 1:30 PM EDT Episode Visit Count: 15 Medicare visits current year: 15 Therapist That Will Accept/Oversee The Plan Of Care: Amanda Soto Start of Care Date: 01/24/24 Onset Date: 01/23/21 Plan of Care Certification Date: 05/28/24 Next Certification Due Date: 08/27/24 Patient Identified by Name and Date of : Yes [facility] PHYSICAL THERAPY WOUND TREATMENT NOTE ASSESSMENT: patient's RIGHT LE with much overall improvement. Her medial wound cluster is now closed, but remains fragile. The lateral wound is much smaller but remains painful Continued wound care imperative. Patient to be relocating to [place] soon and could benefit from as much [...] Assessments 06/12/2024 1:00 PM Site Assessment Hyperpigmentation Elif-Wound Assessment Hyperpigmented;Fragile;Scarred Shape cluster is closed, discolored [...] associated orders. TREATMENT: Conservative Sharp Debridement <20cm (24958): 3 mm curette used to remove slough [...] prn -<20cm2 nonviable tissue removed Nonselective Debridement (56512): The dressing was removed. The RIGHT LE [...] Compression Therapy (Multilayer Venous Wound Compression System) (45100): Skilled interventions: -Skilled knowledge of wound care [...] Adverse event? No Billing: Noncontact Ultrasound Mist (03692): no charge (bundled) Selective Sharp Debridement <20cm (86809): 1 unit Nonselective debridement (61816): no charge (bundled) Multi-Layer Venous Wound Compression System (55010): 1 unit (untimed) Session Start Time : 1228 Session Stop Time : 1328 Total Time: 60 minutes Amanda Soto PT documented in this encounterMount Carmel Health System10-09-2024 [facility] 06-12-2024 NoteHNO ID: [id number] Author: MONSE MERLOS PA-C Service: ? Author Type: Physician Engineering Department Chair Type: Progress Notes Filed: 06/17/2024 19:38 Note Text: Monse Merlos PA-C [facility]-Spine Medicine [address] [place] [address] 06/12/2024 ASSESSMENT AND PLAN: Assessment : Encounter [...] She had some plain radiographs done at [facility], but did not bring those here for review today. SUMMARY/PLAN: She will try to provide her outside lumbar plain radiographs for my future review She will start supervised PT as recommended here and then if she travels down to [place] as his her normal winter routine, she would pickling grader the PT there and finish out her [...] today with this patient visit. This includes [id number] time, review of chart records regarding conservative care history, spine-pertinent imaging, and communication/care coordination with referring provider, problem-specific history-taking and counseling/education regarding treatment options. cc: Marisela Mccarty [address] [address] Results of consultation to be transmitted via electronic medical record for those providers who practice within [facility] or with access to [employer] via [facility], or via letter. ######################################################################## [...] by mouth. anastrozole (ARIMIDEX) 1 mg tablet pa (more content not included)...[facility]10-09-2024 History of Present illness Narrative* Monse Merlos PA-C - 06/12/2024 10:14 AM EDT Images from the original note were not included. Monse Merlos PA-C [facility] [place] [place]-[facility] [address] [address] 06/12/2024 ASSESSMENT AND PLAN: Assessment : Encounter [...] She had some plain radiographs done at [facility], but did not bring those here for review today. SUMMARY/PLAN: She will try to provide her outside lumbar plain radiographs for my future review She will start supervised PT as recommended here and then if she travels down to [place] as his hernormal winter routine, she would pickling grader the PT there and finish out her [...] today with this patient visit. This includes [id number] time, review of chart records regarding conservative care history, spine- pertinent imaging, and communication/care coordination with referring provider, problem-specific history-taking and counseling/education regarding treatment options. cc: Marisela Mccarty [address] [address] Results of consultation to be transmitted via electronic medical record for those providers who practice within [facility] or with access to [employer] via [facility] Connect, or via letter. ######################################################################## [...] STUDIES: See discussion above documented in this encounterMount Carmel Health System10-01-2024 History of Present illness Narrative* Amanda Soto, PT - 06/04/2024 10:31 AM EDT Episode Visit Count: 14 Medicare visits current year: 14 WOUND Therapist That Will Accept/Oversee The Plan Of Care: Amanda Soto Start of Care Date: 01/24/24 Onset Date: 01/23/21 Plan of Care Certification Date: 05/28/24 Next Certification Due Date: 08/27/24 Patient Identified by Name and Date of : Delio [facility] PHYSICAL THERAPY WOUND [...] iswarranted. Patient to be relocating back to [place], tentatively at the end of June. Continued [...] associated orders. TREATMENT: Conservative Sharp Debridement <20cm (97640): 3 mm curette and a scalpel for [...] prn -<20cm2 nonviable tissue removed Nonselective Debridement (78773): The dressing was removed. The RIGHT LE [...] Compression Therapy (Multilayer Venous Wound Compression System) (46968): Skilled interventions: -Skilled knowledge of wound care [...] Adverse event? No Billing: Noncontact Ultrasound Mist (28514): no charge (bundled) Selective Sharp Debridement <20cm (20441): 1 unit Nonselective debridement (92280): no charge (bundled) Multi-Layer Venous Wound Compression System (43492): 1 unit (untimed) Session Start Time : 935 Session Stop Time : 1030 Total Time: 55 minutes Amanda Soto PT documented in this encounterMount Carmel Health System2024 History of Present illness Narrative* Amanda Soto, [...] by Name and Date of : Yes [facility] PHYSICAL THERAPY WOUND [...] pain: not met Patient voices understanding of rn long term care edema management via compression garments, leg elevation,and exercise.:addressed but reinforcement to continue with progressive wound healing. PLAN: Follow up for one visit(s) per week for twelve weeks for, Selective debridement <20cm, Nonselective debridement, Noncontact Ultrasound Mist, Compression Therapy (dressing), Patient/ Caregiver Education, and Self Care/ Home Management *patient with plans to return to [place] at the end of the month if [...] associated orders. TREATMENT: Conservative Sharp Debridement <20cm (31000): 3 mm curette used to selectively remove [...] prn -<20cm2 nonviable tissue removed Nonselective Debridement (31411): The dressing was removed. The RIGHT LE [...] Compression Therapy (Multilayer Venous Wound Compression System) (76854): Skilled interventions: -Skilled knowledge of wound care [...] Adverse event? No Billing: Noncontact Ultrasound Mist (56211): no charge (bundled) Selective Sharp Debridement <20cm (40909): 1 unit Nonselective debridement (63411): no charge (bundled) Multi-Layer Venous Wound Compression System (48216): 1 unit (untimed) Session Start Time : 947 Session Stop Time : 1042 Total Time: 55 minutes Amanda Soto PT documented in this encounterMount Carmel Health System09-17-2024 History of Present illness Narrative* Amanda Soto, PT - 05/21/2024 10:35 AM EDT Episode Visit Count: 12 Medicare visits current year: 12 Therapist That Will Accept/Oversee The Plan Of Care: Liseth Alanis Start of Care Date: 01/24/24 Onset Date: 01/23/21 Plan of Care Certification Date: 02/29/24 (wound care) Next Certification Due Date: 05/08/24 Patient Identified by Name and Date of : Yes [facility] [facility] PHYSICAL THERAPY WOUND [...] is warranted. Patient with pending return to [place] in late June. PLAN FOR NEXT VISIT: [...] associated orders. TREATMENT: Conservative Sharp Debridement <20cm (28596): 3 mm curette used to selectively remove [...] prn -<20cm2 nonviable tissue removed Nonselective Debridement (63458): The dressing was removed. The RIGHT LE [...] Compression Therapy (Multilayer Venous Wound Compression System) (90883): Skilled interventions: -Skilled knowledge of wound care [...] Adverse event? No Billing: Noncontact Ultrasound Mist (75886): no charge (bundled) Selective Sharp Debridement <20cm (49496): 1 unit Nonselective debridement (23083): no charge (bundled) Multi-Layer Venous Wound Compression System (36867): 1 unit (untimed) Session Start Time : 943 Session Stop Time : 1033 Total Time: 50 minutes Amanda Soto PT documented in this encounterMount Carmel Health System09-10-2024 History of Present illness Narrative* Amanda Soto, PT - 05/14/2024 10:28 AM EDT Episode Visit Count: 11 Medicare visits current year: 11 Therapist That Will Accept/Oversee The Plan Of Care: Liseth Alanis Start of Care Date: 01/24/24 Onset Date: 01/23/21 Plan of Care Certification Date: 02/29/24 (wound care) Next Certification Due Date: 05/08/24 Patient Identified by Name and Date of : Yes [facility] PHYSICAL THERAPY WOUND [...] patient and she was transported to the [facility]. Nurses from the family medicine department [...] associated orders. TREATMENT: Conservative Sharp Debridement <20cm (64360): 3 mm curette used to selectively remove [...] prn -<20cm2 nonviable tissue removed Nonselective Debridement (78802): The dressing was removed. The RIGHT LE [...] Compression Therapy (Multilayer Venous Wound Compression System) (74090): Skilled interventions: -Skilled knowledge of wound care [...] comply. *post care, patient transported to the [facility] via w/c and nursing from the [address] [place] [address] transported the pt to the ER per pt request due to her back and hip pain. Post Treatment/Symptom(s): See above Adverse event? No Billing: Noncontact Ultrasound Mist (32522): no charge (bundled) Selective Sharp Debridement <20cm (91141): 1 unit Nonselective debridement (42533): no charge (bundled) Multi-Layer Venous Wound Compression System (07546): 1 unit (untimed) Session Start Time : 937 Session Stop Time : 1024 Total Time: 47 minutes Amanda Soto PT documented in this encounterMount Carmel Health System09-06-2024 History of Present illness Narrative* Amanda Soto, PT - 05/10/2024 1:30 PM EDT Episode Visit Count: 10 Medicare visits current year: 10 Therapist That Will Accept/Oversee The Plan Of Care: Liseth Alanis Start of Care Date: 01/24/24 Onset Date: 01/23/21 Plan of Care Certification Date: 02/29/24 (wound care) Next Certification Due Date: 05/08/24 Patient Identified by Name and Date of : Yes [facility] PHYSICAL THERAPY WOUND [...] Assessments 05/10/2024 1:00 PM Site Assessment Yellow;Red;Arroyo;Linares Elif-Wound Assessment Hyperpigmented;Fragile;Scarred Shape cluster of wounds: [...] associated orders. TREATMENT: Conservative Sharp Debridement <20cm (30106): 3 mm curette used to selectively remove [...] prn -<20cm2 nonviable tissue removed Nonselective Debridement (37806): The dressing was removed. The RIGHT LE [...] Compression Therapy (Multilayer Venous Wound Compression System) (26839): Skilled interventions: -Skilled knowledge of wound care [...] Adverse event? No Billing: Noncontact Ultrasound Mist (41509): no charge (bundled) Selective Sharp Debridement <20cm (31305): 1 unit Nonselective debridement (22559): no charge (bundled) Multi-Layer Venous Wound Compression System (54751): 1 unit (untimed) Session Start Time : 1240 Session Stop Time : 1328 Total Time: 48 minutes Amanda Soto PT documented in this encounterMount Carmel Health System09-05-2024 Telephone encounter Note * Telephone Encounter - Lisa Shirley - 05/09/2024 3:13 PM EDT Spoke with patient to offer appointment with Amanda tomorrow at 12 (noon) for wound therapy. Patientasked to call back because she was not home and needed to check her schedule first. Patient said she would call back within the next half hour [facility]09-05-[facility]24 Miscellaneous Notes* Telephone Encounter - Lisa Shirley [...] available for wound therapy. documented in this encounterMount Carmel Health System09-05-2024 Telephone encounter Note * Telephone Encounter - Lisa Shirley - 05/09/2024 2:02 PM EDT Patient is currently scheduled for Amanda's first available on 05/14/2024. [facility]09-04-[facility] Telephone encounter Note* Telephone Encounter - Skylar Herrera - 05/08/2024 7:26 AM EDT Lvm for patient to call back and schedule appointment due to provider being out sick. May be scheduled for Amanda's first available for wound therapy. [facility]08-27-[facility] History of Present illness Narrative* Amanda Soto, PT - 04/30/2024 3:40 PM EDT Episode Visit Count: 9 Medicare visits current year: 9 WOUND Therapist That Will Accept/Oversee The Plan Of Care: Liseth Alanis Start of Care Date: 01/24/24 Onset Date: 01/23/21 Plan of Care Certification Date: 02/29/24 (wound care) Next Certification Due Date: 05/08/24 Patient Identified by Name and Date of : Yes [facility] PHYSICAL THERAPY WOUND [...] when she plans to relocate back to [place]. PLAN FOR NEXT VISIT: continue with acitve [...] associated orders. TREATMENT: Conservative Sharp Debridement <20cm (39535): 3 mm curette used to selectively remove [...] prn -<20cm2 nonviable tissue removed Nonselective Debridement (63881): The dressing was removed. The RIGHT LE [...] Compression Therapy (Multilayer Venous Wound Compression System) (51864): Skilled interventions: -Skilled knowledge of wound care [...] Adverse event? No Billing: Noncontact Ultrasound Mist (60423): no charge (bundled) Selective Sharp Debridement <20cm (65702): 1 unit Nonselective debridement (83836): no charge (bundled) Multi-Layer Venous Wound Compression System (57562): 1 unit (untimed) Session Start Time : 1434 Session Stop Time : 1533 Total Time: 59 minutes Amanda Soto PT documented in this encounterMount Carmel Health System08-27-2024 NoteHNO ID: [id number] Author: LISETH ALANIS PT Service: ? Author [...] and treatment included: Therapeutic exercise, Neuromuscular re-education, Self-usp management, and Gait training. Goals for Episode [...] to reflect decreased fall risk. -- MET Juab in home exercise program including cardiovascular exercise. -- MET - plans to go to the [facility] where her DTR is a personal fitness trainer Complete 6 MWT x1545 ft or more [...] facilitated with verbal, visual, and tactile cueing. Self-Mcfp Management: 1: discussed correct adjustment of SC 2: discussed continued completion of HEP and progressing with personal fitness trainer 3: discussed posture 4: provided HEP hand outs from previous visits per pt. request Skilled Intervention: Skilled judgment in the selection of proper modification for activity of daily living/home management based on clinical presentation, deficits, and needs. Provided written i (more content not included)...[facility] 04-30-2024 History of Present illness Narrative* [...] and treatment included: Therapeutic exercise, Neuromuscular re-education, Self-usp management, and Gait training. Goals for Episode [...] to reflect decreased fall risk. -- MET Juab in home exercise program including cardiovascular exercise. -- MET - plans to go to the [facility] where her DTR is a personal fitness trainer Complete 6 MWT x1545 ft or more [...] facilitated with verbal, visual, and tactile cueing. Self-Mcfp Management: 1: discussed correct adjustment of SC 2: discussed continued completion of HEP and progressing with personal fitness trainer 3: discussed posture 4: provided HEP hand [...] 854 Liseth Alanis PT documented in this encounterMount Carmel Health System08-21-2024 History of Present illness Narrative* Amanda Soto, PT - 04/24/2024 10:45 AM EDT Images [...] by Name and Date of : Yes [facility] PHYSICAL THERAPY WOUND [...] pain: not met Patient voices understanding of rn long term care edema management via compression garments, leg elevation,and [...] closures. States her leg has been ok. 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 Patient rating of condition: better [...] associated orders. TREATMENT: Conservative Sharp Debridement <20cm (02546): 3 mm curette used to selectively remove [...] prn -<20cm2 nonviable tissue removed Nonselective Debridement (42436): The dressing was removed. The RIGHT LE [...] Compression Therapy (Multilayer Venous Wound Compression System) (69575): Skilled interventions: -Skilled knowledge of wound care [...] rendered are medically necessary. Noncontact Ultrasound Mist (26088): no charge (bundled) Selective Sharp Debridement <20cm (32676): 1 unit Nonselective debridement (04157): no charge (bundled) Multi-Layer Venous Wound Compression System (00411): 1 unit (untimed) Session Start Time : 951 Session Stop Time : 1049 Total Time: 58 minutes Amanda Soto PT documented in this encounterMount Carmel Health System08-20-2024 NoteHNO ID: [id number] Author: LISETH ALANIS PT Service: ? Author [...] Session Stop Time : 1458 Liseth Alanis, [facility]08-20-2024 History of Present illness Narrative* Liseth Alanis, [...] 1458 Liseth Alanis PT documented in this encounterMount Carmel Health System08-20-2024 NoteHNO ID: [id number] Author: GT IYN, DO Service: ? Author Type: Physician Type: Progress Notes Filed: 05/23/2024 16:21 Note Text: [facility] [place] DEPARTMENT OF VASCULAR SURGERY OUTPATIENT VISIT DATE [...] vein at the knee crease. An incompetent community development coordinator is noted at mid calf and another [...] Ga DATE: April 23, 2024 TIME: 11:05 [facility]08-20-2024 History of Present illness Narrative* Gt Yin DO - 04/23/2024 11:04 AM EDT Images from the original note were not included. [facility] [place] DEPARTMENT OF VASCULAR SURGERY OUTPATIENT VISIT DATE [...] vein at the knee crease. An incompetent community development coordinator is noted at mid calf and another [...] 2024 TIME: 11:05 AM documented in this encounterMount Carmel Health System08-13-2024 History of Present illness Narrative* Amanda Soto, PT - 04/16/2024 3:45 PM EDT Episode Visit Count: 7 Medicare visits current year: 7 Therapist That Will Accept/Oversee The Plan Of Care: Liseth Alanis Start of Care Date: 01/24/24 Onset Date: 01/23/21 Plan of Care Certification Date: 03/13/24 Next Certification Due Date: 05/08/24 Patient Identified by Name and Date of : Yes [facility] PHYSICAL THERAPY WOUND [...] associated orders. TREATMENT: Conservative Sharp Debridement <20cm (10939): 3 mm curette used to selectively remove [...] prn -<20cm2 nonviable tissue removed Nonselective Debridement (87773): The dressing was removed. The RIGHT LE [...] Compression Therapy (Multilayer Venous Wound Compression System) (17694): Skilled interventions: -Skilled knowledge of wound care [...] Adverse event? No Billing: Noncontact Ultrasound Mist (30208): no charge (bundled) Selective Sharp Debridement <20cm (53505): 1 unit Nonselective debridement (87971): no charge (bundled) Multi-Layer Venous Wound Compression System (49902): 1 unit (untimed) Session Start Time : 1441 Session Stop Time : 1545 Total Time: 64 minutes Amanda Soto PT documented in this encounterMount Carmel Health System08-13-2024 History of Present illness Narrative* Liseth Alanis, PT - 04/16/2024 11:01 AM EDT Program_ID:[id number] Access Code: [email or web address] URL: [email or web address] Date: 04-16-2024 Prepared By: Liseth Alanis Program Notes Exercises - Lateral Shift Correction at Wall - 2-3 x daily - 7 x weekly - 4 sets - 10 reps * Liseth Alanis, PT - 04/16/2024 10:44 AM EDT Episode [...] correct R list 4x10 4: *Access Code: [email or web address] URL: [email or web address] Date: 04/16/2024 Prepared by: Liseth O\'Carlos Exercises - Lateral Shift Correction at Wall [...] and function . Patient education as noted. Self-Mcfp Management: 1: discussed at length how a [...] 1110 Liseth Alanis PT documented in this encounterMount Carmel Health System08-13-2024 NoteHNO ID: [id number] Author: LISETH ALANIS PT Service: ? Author [...] correct R list 4x10 4: *Access Code: [email or web address] URL: [email or web address] Date: 04/16/2024 Prepared by: Liseth Alanis Exercises [...] and function . Patient education as noted. Self-Mcfp Management: 1: discussed at length how a [...] Session Stop Time : 1110 Liseth Alanis, [facility]08-07-2024 History of Present illness Narrative* Amanda Soto, PT - 04/10/2024 12:58 PM EDT Episode Visit Count: 6 Medicare visits current year: 6 Therapist That Will Accept/Oversee The Plan Of Care: Liseth Alanis Start of Care Date: 01/24/24 Onset Date: 01/23/21 Plan of Care Certification Date: 03/13/24 Next Certification Due Date: 05/08/24 Patient Identified by Name and Date of : Yes [facility] PHYSICAL THERAPY WOUND [...] associated orders. TREATMENT: Conservative Sharp Debridement <20cm (28260): 3 mm curette used to selectively remove [...] prn -<20cm2 nonviable tissue removed Nonselective Debridement (33064): The dressing was removed. The RIGHT LE [...] Compression Therapy (Multilayer Venous Wound Compression System) (24195): Skilled interventions: -Skilled knowledge of wound care [...] Adverse event? No Billing: Noncontact Ultrasound Mist (08059): no charge Selective Sharp Debridement <20cm (68104): 1 unit Nonselective debridement (11756): no charge Multi-Layer Venous Wound Compression System (77524): 1 unit (untimed) Session Start Time : 1149 Session Stop Time : 1253 Total Time: 64 minutes Amanda Soto PT documented in this encounterMount Carmel Health System08-01-2024 History of Present illness Narrative* Amanda Soto PT - 04/04/2024 3:30 PM EDT Episode Visit Count: 5 Medicare visits current year: 5 Therapist That Will Accept/Oversee The Plan Of Care: Liseth Alanis Start of Care Date: 01/24/24 Onset Date: 01/23/21 Plan of Care Certification Date: 03/13/24 Next Certification Due Date: 05/08/24 Patient Identified by Name and Date of : Yes [facility] PHYSICAL THERAPY WOUND [...] associated orders. TREATMENT: Conservative Sharp Debridement <20cm (00505): 3 mm curette used to selectively remove [...] prn -<20cm2 nonviable tissue removed Nonselective Debridement (03194): The dressing was removed. The RIGHT LE [...] Compression Therapy (Multilayer Venous Wound Compression System) (50806): Skilled interventions: -Skilled knowledge of wound care [...] Adverse event? No Billing: Noncontact Ultrasound Mist (58890): no charge Selective Sharp Debridement <20cm (00653): 1 unit Nonselective debridement (43991): no charge Multi-Layer Venous Wound Compression System (95679): 1 unit (untimed) Session Start Time : 1435 Session Stop Time : 1530 Total Time: 55 minutes Amanda Soto PT documented in this encounterMount Carmel Health System07-30-2024 NoteHNO ID: [id number] Author: MARISELA MCCARTY MD Service: ? Author Type: Physician Type: Progress Notes Filed: 04/02/2024 16:29 Note Text: Orthopaedic Office Note: April 02, 2024 4:24 PM Mary Alice Ga 73 year old History: Mary Alice is here for evaluation of her left hip. She has a known history of substantial lumbar scoliosis, likely degenerative She had a femoral neck fracture 3 years ago in [place] and was treated with a uncemented hemiarthroplasty [...] to 6 mm of one another Negative [place] Updated Imaging: Hemiarthroplasty in appropriate position alignment [...] which included preparing to see the patient, [id number] patient care, completing clinical documentation, obtaining and/or reviewing separately obtained history, performing a medically appropriate examination, counseling and educating the patient/family/caregiver, ordering medications, tests, or procedures, communicating with other HCPs (not separately reported), independently interpreting results (not separately reported), communicating results to the patient/family/caregiver, and care coordination (not separately reported). Marisela Mccarty MD [facility] History of Present illness Narrative* Marisela Mccarty MD - 04/02/2024 1:49 PM EDT Orthopaedic Office Note: April 02, 2024 4:24 PM Mary Alice Ga 73 year old History: Mary Alice is here for evaluation of her left hip. She has a known history of substantial lumbar scoliosis, likely degenerative She had a femoral neck fracture 3 years ago in [place] and was treated with a uncemented hemiarthroplasty [...] which included preparing to see the patient, [id number] patient care, completing clinical documentation, obtaining and/or reviewing separately obtained history, performing a medically appropriate examination, counseling and educating the patient/family/caregiver, ordering medications, tests, or procedures, communicating withother HCPs (not separately reported), independently interpreting results (not separately reported),communicating results to the patient/family/caregiver, and care coordination (not separately reported). Marisela Mccarty MD Orthopaedic Surgery documented in this encounterMount Carmel Health System07-30-2024 History of Present illness Narrative* Chandrika Rader [...] PATIENT PRESENTS WITH AN IMPLANTABLE OR ATTACHED INSIDE WIREMAN: No RADIOLOGY DEPARTMENT: General X-ray: Exam(s) Completed: Pelvis X-Ray: Pelvis with Hip Left and Wt. Bearing PERIPHERAL IV DATA: Not applicable SIGNED BY: Juhi Valles April 02, 2024 1:02 PM documented in this encounterMount Carmel Health System07-29-2024 NoteHNO ID: [id number] Author: LISETH ALANIS, PT Service: ? Author [...] Session Stop Time : 1656 Liseth Alanis, [facility]07-29-2024 History of Present illness Narrative* Liseth Alanis, PT - 04/01/2024 4:18 PM EDT Episode Visit Count: 9 Therapist That Will Accept/Oversee The Plan Of Care: Liseth Alanis Start of Care Date: 01/24/24 Onset Date: 01/23/21 Plan of Care Certification Date: 03/13/24 Next Certification Due Date: 05/08/24 REHABILITATION AND SPORTS THERAPY PHYSICAL THERAPY TREATMENT NOTE ASSESSMENT: Mary Aliec Ga tolerated the session with fatigue and [...] Time : 1615 Session Stop Time : 1655 Liseth Alanis, PT documented in this encounterMount Carmel Health System07-23-2024 History of Present illness Narrative* Amanda Soto, PT - 03/26/2024 9:33 PM EDT Images from the original note were not included. Episode Visit Count: 4 Medicare visits current year: 4 Therapist That Will Accept/Oversee The Plan Of Care: Amanda Soto Start of Care Date: 01/24/24 Onset Date: 01/23/21 Plan of Care Certification Date: 03/13/24 Next Certification Due Date: 05/08/24 Patient Identified by Name and Date of : Yes [facility] PHYSICAL THERAPY WOUND [...] pain: not met Patient voices understanding of halfway edema management via compression garments, leg elevation,and [...] back issues) TREATMENT: Conservative Sharp Debridement <20cm (59426): 3 mm curette used to selectively remove [...] prn -<20cm2 nonviable tissue removed Nonselective Debridement (76239): The compression dressing was removed. RIGHT LE [...] Compression Therapy (Multilayer Venous Wound Compression System) (35969): Skilled interventions: -Skilled knowledge of wound care [...] Adverse event? No Billing: Noncontact Ultrasound Mist (59202): no charge Selective Sharp Debridement <20cm (83554): 1 unit Nonselective debridement (98271): no charge Multi-Layer Venous Wound Compression System (72830): 1 unit (untimed) Session Start Time : 1433 Session Stop Time : 1540 Total Time: 67 minutes Amanda Soto PT documented in this encounterMount Carmel Health System07-23-2024 History of Present illness Narrative* Liseth Alanis, PT - 03/26/2024 11:46 AM EDT Program_ID:[id number] Access Code: [email or web address] URL: [email or web address] Date: 03-26-2024 Prepared By: Liseth Alanis Program [...] and function . Patient education as noted. Self-Mcfp Management: 1: discussed that reduce back symptoms [...] 1155 Liseth Alanis PT documented in this encounterMount Carmel Health System07-23-2024 NoteHNO ID: [id number] Author: LISETH ALANIS PT Service: ? Author [...] seated TA activation SUBJECTIVE: Pt. will see Dr. Bibiana vincent next week to seek his opinion reguarding [...] and function . Patient education as noted. Self-Mcfp Management: 1: discussed that reduce back symptoms [...] Session Stop Time : 1155 Liseth Alanis, [facility]07-17-2024 History of Present illness Narrative* Liseth Alanis, [...] 1240 Liseth Alanis PT documented in this encounterMount Carmel Health System07-17-2024 NoteHNO ID: [id number] Author: LISETH ALANIS PT Service: ? Author [...] Session Stop Time : 1240 Liseth Alanis, [facility]07-16-2024 History of Present illness Narrative* Amanda Soto, PT - 03/19/2024 9:59 AM EDT Episode Visit Count: 3 Medicare visits current year: 3 WOUND Therapist That Will Accept/Oversee The Plan Of Care: Liseth Alanis Start of Care Date: 01/24/24 Onset Date: 01/23/21 Plan of Care Certification Date: 03/13/24 Next Certification Due Date: 05/08/24 Patient Identified by Name and Date of : Yes [facility] PHYSICAL THERAPY WOUND [...] associated orders. TREATMENT: Conservative Sharp Debridement <20cm (45812): 3 mm curette used to selectively remove [...] prn -<20cm2 nonviable tissue removed Nonselective Debridement (65225): The compression dressing was removed. RIGHT LE [...] Compression Therapy (Multilayer Venous Wound Compression System) (37212): Skilled interventions: -Skilled knowledge of wound care [...] Adverse event? No Billing: Noncontact Ultrasound Mist (71153): no charge Selective Sharp Debridement <20cm (11749): 1 unit Nonselective debridement (80560): no charge Multi-Layer Venous Wound Compression System (47098): 1 unit (untimed) Session Start Time : 837 Session Stop Time : 940 Total Time: 63 minutes Amanda Soto PT documented in this encounterMount Carmel Health System07-10-2024 NoteHNO ID: [id number] Author: LISETH ALANIS PT Service: ? Author [...] to reflect decreased fall risk. -- PROGRESSING Juab in home exercise program including cardiovascular exercise. [...] Patient to be seen for Gait Training (27698), Self-usp management (69901), Therapeutic activities (80465), Manual therapy (90441), Neuromuscular re-education (37285), Therapeutic exercise (23060) PLAN FOR NEXT VISIT: work on step [...] last visit. She is seeing PT in [place] for her wounds. She is having the [...] Patient education as noted. (more content not included)...[facility]07-10-[facility] History of Present illness Narrative* JeremyLupeCarlosLiseth herrera, PT - 03/13/2024 12:49 PM EDT Images [...] to reflect decreased fall risk. -- PROGRESSING Juab in home exercise program including cardiovascular exercise. [...] Patient to be seen for Gait Training (32066), Self-usp management (86213), Therapeutic activities (88977), Manual therapy (10977), Neuromuscular re- education (16025), Therapeutic exercise (25979) PLAN FOR NEXT VISIT: work on step [...] last visit. She is seeing PT in [facility]. She is having the most difficulty with [...] Gait belt utilized during session for safety. Self-Mcfp Management: 1: strongly encouraged use of SC [...] 1325 Liseth Alanis PT documented in this encounterMount Carmel [facility] System07-09-2024 History of Present illness Narrative* Amanda Soto, PT - 03/12/2024 10:28 PM EDT Episode Visit Count: 2 Medicare visits current year: 2 WOUND CARE Therapist That Will Accept/Oversee The Plan Of Care: Amanda Soto Start of Care Date: 02/29/24 Onset Date: 02/27/24 Plan of Care Certification Date: 02/29/24 (WOUND CARE) Next Certification Due Date: 05/29/24 (WOUND CARE) Patient Identified by Name and Date of : Yes [facility] PHYSICAL THERAPY WOUND [...] associated orders. TREATMENT: Conservative Sharp Debridement <20cm (11896): 3 mm curette used to selectively remove [...] prn -<20cm2 nonviable tissue removed Nonselective Debridement (97780): home dressings removed. RIGHT LE cleansed with [...] Compression Therapy (Multilayer Venous Wound Compression System) (50739): Skilled interventions: -Skilled knowledge of wound care [...] Adverse event? No Billing: Noncontact Ultrasound Mist (13516): no charge Selective Sharp Debridement <20cm (86454): 1 unit Nonselective debridement (92708): no charge Multi-Layer Venous Wound Compression System (99140): 1 unit (untimed) Session Start Time : 1153 Session Stop Time : 1255 Total Time: 62 minutes Amanda Soto PT documented in this encounterMount Carmel Health System06-27-2024 History of Present illness Narrative* Amanda Soto, [...] by Name and Date of : Yes [facility] PHYSICAL THERAPY WOUND [...] drainage Eliminate pain Patient voices understanding of halfway edema management via compression garments, leg elevation,and exercise. Planned Interventions, Frequency, and Duration: Current Frequency: 1x/week (WOUND CARE) Duration: (6 months: WOUND CARE) Total Number of Visits Planned: 24 (WOUND CARE) Planned Treatment Interventions: Self-usp management (32887), Patient/Family/Caregiver Education, Wound Selective debridement <20cm, Selective [...] Limits Prior Wound Care: Other: See Comment ([facility], [facility]ermatology center for a Mohs procedureof the upper lower leg and lower leg wounds. Ablation in [facility]. Dr Yin in [place].) Patient Goals: get the wounds to close [...] Education TREATMENT: Evaluation Conservative Sharp Debridement <20cm (77409): 3 mm curette used to selectively remove [...] prn -<20cm2 nonviable tissue removed Nonselective Debridement (86914): RIGHT LE cleansed with warm soapy water [...] as patient has an appt tomorrow for Alerts wraps. Patient will be out of town [...] event? No Billing: Evaluation - Moderate Complexity (49108) Noncontact Ultrasound Mist (73263): no charge Selective Sharp Debridement <20cm (68340): 1 unit Nonselective debridement (45703): no charge Session Start Time : 1550 Session Stop Time : 1655 Total time: 65 minutes Amanda Soto PT documented in this encounterMount Carmel Health System06-25-2024 Instructions* Patient Instructions* Gt Yin, - 02/27/2024 9:25 AM EDT Vasculera- food supplement; vein health Farrow Wrap or Circaid stocking Plan is get ultrasound of veins and follow up May benefit from referral to [facility] Customer Retention Representative- Amanda Soto documented in this encounterMount Carmel Health System06-25-2024 NoteHNO ID: [id number] Author: GT YIN DO Service: ? Author Type: Physician Type: Progress Notes Filed: 03/26/2024 13:56 Note Text: Heart, V[facility] Thoracic [place] DEPARTMENT OF VASCULAR SURGERY OUTPATIENT VISIT DATE [...] past year. She has been treated at [place] [facility]. They recommend HBO to help with healing. She has history of AGSV EVLT and phlebectomy in 2015. She had reflux testing at [place] which demonstrated reflux and had ablation a few months ago and has had issue healing since the procedure. She wears compression stockings- knee high stockings. She currently has epifix in place with an compression dressing. 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 She stands for long periods of time during the day. 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 Has used compression pumps [...] motor skills. Vascular: Dorsal (more content not included)...[facility] 02-27-2024 History of Present illness Narrative* Gt Yin, - 02/27/2024 8:31 AM EDT Images from the original note were not included. Heart, [facility] [place] DEPARTMENT OF VASCULAR SURGERY OUTPATIENT VISIT DATE [...] past year. She has been treated at [place] wound care center. They recommend HBO to help with healing. She has history of AGSV EVLT and phlebectomy in 2015. She had reflux testing at [place] which demonstrated reflux and had ablation a few months ago and has had issue healing since the procedure. She wears compression stockings- knee high stockings. She currently has epifix in placewith an compression dressing. 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 She stands for long periods of timeduring the day. 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 Author [...] Gait belt utilized during session for safety. Self-Mcfp Management: 1: encouraged pt. to wear shoes [...] 1030 Session Stop Time : 1110 Liseth Alanis, [facility]06-18-2024 History of Present illness Narrative* Benny Liseth, PT - 02/20/2024 10:33 AM EDT Episode [...] Gait belt utilized during session for safety. Self-Mcfp Management: 1: encouraged pt. to wear shoes [...] 1110 Liseth Alanis PT documented in this encounterMount Carmel Health System06-11-2024 History of Present illness Narrative* Liseth Alanis PT - 02/13/2024 11:06 AM EDT Program_ID:[id number] Access Code: [email or web address] URL: [email or web address] Date: 02-13-2024 Prepared By: Liseth Alanis Program [...] hurdles x6 fwd stepping with SC and SHIFT STACKER 4x R lead, 4x L lead Skilled [...] 1108 Liseth Alanis PT documented in this encounterMount Carmel Health System06-11-2024 NoteHNO ID: [id number] Author: LISETH ALANIS PT Service: ? Author [...] hurdles x6 fwd stepping with SC and SHIFT STACKER 4x R lead, 4x L lead Skilled [...] Session Stop Time : 1108 Liseth Alanis, [facility]06-04-2024 History of Present illness Narrative* Liseth Alanis, PT - 02/06/2024 8:47 AM EDT Program_ID:[id number] Access Code: [email or web address] URL: [email or web address] Date: 02-06-2024 Prepared By: Liseth Alanis Program [...] seat 13 subjective collected 2: *Access Code: [email or web address] URL: [email or web address] Date: 02/06/2024 Prepared by: Liseth Silva Exercises [...] with an (*). Patient education as noted. Self-Mcfp Management: 1: discussed a heel lift could [...] 854 Liseth Alanis PT documented in this encounterMount Carmel Health System06-04-2024 NoteHNO ID: [id number] Author: LISETH ALANIS PT Service: ? Author Type: Physical Therapist Type: Progress Notes Filed: 02/06/2024 08:55 Note Text: Episode Visit Count: 3 Therapist That Will Accept/Oversee The Plan Of Care: Liseth Alanis Start of Care Date: 01/24/24 Onset Date: 01/23/21 Plan of Care Certification Date: 01/24/24 Next Certification Due Date: 03/20/24 REHABILITATION AND SPORTS THERAPY PHYSICAL THERAPY TREATMENT NOTE ASSESSMENT: Mary Alice Locke Migdalia tolerated the session with decreased symptoms. She [...] seat 13 subjective collected 2: *Access Code: [email or web address] URL: [email or web address] Date: 02/06/2024 Prepared by: Liseth Alanis Exercises [...] with an (*). Patient education as noted. Self-Mcfp Management: 1: discussed a heel lift could be helpful, but turnk and hip weakness cant contribute to leg length and trunk posture 2: advised shoes with a back on them Skilled Intervention: Skilled judgment in the selection of proper modification for activity of daily living/home management based on clinical presentation, deficits, and needs. Provided written instruct (more content not included)...[facility]05-28-20[facility] History of Present illness Narrative* Liseth Alanis, PT - 01/30/2024 11:07 AM EDT Program_ID:[id number] Access Code: [email or web address] URL: [email or web address] Date: 01-30-2024 Prepared By: Liseth Alanis Program [...] Gait belt utilized during session for safety. Self-Mcfp Management: 1: discussed that PT may not [...] 1110 Liseth Alanis PT documented in this encounterMount Carmel Health System05-28-2024 NoteHNO ID: [id number] Author: LISETH ALANIS PT Service: ? Author [...] Gait belt utilized during session for safety. Self-Mcfp Management: 1: discussed that PT may not [...] Session Stop Time : 1110 Liseth Alanis [facility]05-22-2024 NoteHNO ID: [id number] Author: LISETH ALANIS PT Service: ? Author [...] more repetitions to reflect decreased fall risk. Juab in home exercise program including cardiovascular exercise. Complete 6 MWT x1545 ft or more with or without SC. Patient Goals: amb without an AD from handicap spot to front door without LOB Planned Interventions, Frequency, and Duration: Current Frequency: 1x/week Duration: 6 weeks Total Number of Visits Planned: 6 Planned Treatment Interventions: Self-usp management (73527), Gait Training (43362), Therapeutic activities (79313), Manual therapy (96878), Neuromuscular re-education (97443), Therapeutic exercise (61801) PLAN FOR NEXT VISIT: 6 MWT Patient [...] Extension: Major limitation Mobil (more content not included)...[facility]05-22-2024 History of Present illness Narrative* Liseth [...] more repetitions to reflect decreased fall risk. Juab in home exercise program including cardiovascular exercise. Complete 6 MWT x1545 ft or more with or without SC. Patient Goals: amb without an AD from handicap spot to front door without LOB Planned Interventions, Frequency, and Duration: Current Frequency: 1x/week Duration: 6 weeks Total Number of Visits Planned: 6 Planned Treatment Interventions: Self-usp management (14139), Gait Training (68045), Therapeutic activities (73758), Manual therapy (76877), Neuromuscular re-education (32998), Therapeutic exercise (85186) PLAN FOR NEXT VISIT: 6 MWT Patient [...] Demonstration TREATMENT: PT Treatment Interventions: Therapeutic Exercise, Self-Mcfp Management Evaluation Self-Mcfp Management: 1: discussed importance of continued use [...] 1625 Liseth Alanis PT documented in this encounterMount Carmel Health System04-27-2024 Discharge summary Author Harrison Roper [facility] December 30, 2023 1:30pm Note Date/Time December 30, 2023 1:2 5pm [facility] Medical Records Department [address] [place] [address] Instructions for Home/Discharge Instructions 12/30/23 1025 MR#: [id number] Acct: [id number] Name: MARY ALICE GA Rep #:[id number] : 1950 73 From: Harrison Hughes PCP: [...] CC: Dr. Khanh Rodriguez MD ~ Signed [facility] Work Phone: 1(949) 534-402704-27-2024 Procedure [facility] 12-30-2023 Procedure [facility]04-26-2024 Progress note Author Johny Davila [facility] December 29, 2023 5:46pm Note Date/Time December 29, 2023 5:4 6pm [facility] System Medical Records Department [address] [facility] [place] [address] Progress Note - GI 12/29/23 1743 MR#: [id number] Acct: [id number] Name: MARY ALICE GA Rep #:[id number] : 1950 73 From: Johny Friend DO PCP: Dr. Khanh Rodriguez MD Status:A DM IN Location: [address] 1 Subjective Subjective Patient underwent an EGD [...] 89.6 H, Lymph % (Auto) 7.5 L, Lawrence % (Auto) 2.5, Eos % (Auto) 0.0, [...] direct bilirubin. Charges/Coding Visit Charges Inpatient E&M: 80738 Subs Hosp L3 12/29/23 1746 <Electronically signed by Johny Friend DO> Cosigner Signature (if applicable): CC: ~ Signed [facility] Work Phone: 1(747) 549-931404-26-2024 Progress note Author Harrison Roper [facility] December 29, 2023 1:31pm Note Date/Time December 29, 2023 1:1 3pm [facility] Medical Records Department [address] [place] [address] Progress Note - Hospitalist 12/29/23 1312 MR#: [id number] Acct: [id number] Name: MARY ALICE GA Rep #:[id number] : 1950 73 From: Harrison Hughes PCP: Dr. Khanh Rodriguez MD Status:A DM IN Location: [place] [address] Reason for Visit Reason for Visit: Diagnoses [...] 89.6 H, Lymph % (Auto) 7.5 L, Lawrence % (Auto) 2.5, Eos % (Auto) 0.0, [...] of breast cancer: Patient on anastrozole.Patient follows [facility] [facility] [place]. On alendronate continued Living will/advanced directive/end of life care: Patient does not living will or advanced directive. Her is power of trademark attorney for health. After discussion of benefits/risks procedures involved with full code, DNR CC arrest and DNR CC, the patient opted for full code. Patient does want artificial life support including intubation, tube feed, ventilator and/chest compression, central venous catheter, vasopressor and DC shock if needed Total time spent in bjnp-vw-bntt encounter in discussion of advanced directive 17 minutes. Clinical Impression(s) from Imaging Studies Abdomen/Pelvis CT 12/27/23 10:14 IMPRESSION: Findings suggestive of cirrhosis. Fatty infiltration of the liver. Small gallstones with mild thickening of the gallbladder wall. Small amount of ascites. Sigmoid diverticulosis. Small umbilical hernia containing fat. Charges/Coding Visit Charges Inpatient E&M: 53717 Subs Hosp L2 12/29/23 3911 <Electronically signed by Harrison Roper MD> Cosigner Signature (if applicable): CC: ~ Signed [facility] Work Phone: 1(836) 239-905504-25-2024 Progress note Author Harrison Roper [facility] December 28, 2023 3:51pm Note Date/Time December 28, 2023 8:1 9am [facility] System Medical Records Department [address] [place] [address] Progress Note - Hospitalist 12/28/23 0814 MR#: [id number] Acct: [id number] Name: MARY ALICE GA Rep #:[id number] : 1950 73 From: Harrison Hughes PCP: Dr. Khanh Rodriguez MD Status:A DM IN Location: [address] 1 Reason for Visit Reason for Visit: Diagnoses [...] Sl. Cloudy, Urine pH 7.0, Ur Specific [place] 1.005, Urine Protein 15 H, Urine Glucose [...] (Auto) 73.0 H, Lymph % (Auto) 19.2, Lawrence % (Auto) 6.7, Eos % (Auto) 0.4, [...] % (Auto) 69.7, Lymph % (Auto) 22.8, Lawrence % (Auto) 5.3, Eos % (Auto) 1.5, Baso % (Auto) 0.5, Absolute Neuts (auto) 2.9, Absolute Lymphs (auto) 0.94, Nucleated RBC % 0, Differential CommentSCANNED, Diff Path Review May foll, Platelet Estimate MOD DEC, Polychromasia 1+,Anisocytosis 2+, Macrocytosis 2+, Ovalocytes RARE, [place] Bodies RARE, PT 16.9 H, INR 1.4, [...] of breast cancer: Patient on anastrozole.Patient follows [facility]. On alendronate continued Living will/advanced directive/end of life care: Patient does not living will or advanced directive. Her is power of trademark attorney for health. After discussion of benefits/risks procedures involved with full code, DNR CC arrest and DNR CC, the patient opted for full code. Patient does want artificial life support including intubation, tube feed, ventilator and/chest compression, central venous catheter, vasopressor and DC shock if needed Total time spent in ibgx-nr-vewr encounter in discussion of advanced directive 17 [...] % (Auto) 69.7, Lymph % (Auto) 22.8, Lawrence % (Auto) 5.3, Eos % (Auto) 1.5, Baso % (Auto) 0.5, Absolute Neuts (auto) 2.9, Absolute Lymphs (auto) 0.94, Nucleated RBC % 0, Differential CommentSCANNED, Diff Path Review May foll, Platelet Estimate MOD DEC, Polychromasia 1+,Anisocytosis 2+, Macrocytosis 2+, Ovalocytes RARE, [place] Bodies RARE, PT 16.9 H, INR 1.4, [...] containing fat. Charges/Coding Visit Charges Inpatient E&M: 56220 Subs Hosp L2 12/28/23 1555 <Electronically signed by Harrison Roper MD> Cosigner Signature (if applicable): CC: ~ Signed [facility] Work Phone: 1(800) 781-274004-25-2024 [facility] Discharge summary Author Yair Lazcano [facility] December 27, 2023 3:34pm Note Date/Time December 27, 2023 9:1 5am [facility] System Medical Records Department [address] [facility] [place] [address] Emergency Department Summary 12/27/23 MR#: [id number] Acct: [id number] Name: MARY ALICE GA Rep #:[id number] : 1950 73 From: Yair Luna PCP: Dr. Khanh Rodriguez MD Status:A DM IN Location: [address] History of Present Illness Chief Complaint: GI [...] states that on Monday she went to [employer] and picked up an eggroll chicken and [...] yellow. is currently in the hospital in [place] with a broken femur and is being transferred to a rehab facility today. She denies any abdominal pain but states that her abdomen is generally sore. Patient does takepantoprazole daily. Patient states that they typically will winter in [place] where she sees a combination machine tool setter. She states that this is the first year they did not go back. [facility] Medical History Abnormal mammogram of left [...] (Auto) 73.0 H Lymph % (Auto) 19.2 Lawrence % (Auto) 6.7 Eos % (Auto) 0.4 [...] Sl. Cloudy Urine pH 7.0 Ur Specific [place] 1.005 Urine Protein 15 H Urine Glucose [...] Signed: Nahum Kelley MD at 10:54 EDT Reading Location ID and State: [facility] / [place] , Service support , Management Discussion w/another healthcare provider: Hospitalist (Dr Roper) and Clinical Applications Specialist (GI Dr Davila) Discharge Plan Dx/Rx/DC Orders Clinical Impression: Decompensated hepatic cirrhosis, Jaundice, Acute upper GI bleeding, Ascites, Thrombocytopenia Disposition Disposition: [facility] What to do if you have Problems For any increased pain, shortness of breath, bleeding, nausea or vomiting, chestpain, or any unexpected problems, contact your Primary Care Provider. Call [facility] ([phone]) or report to the closest Emergency Room. Call 911 if necessary. 12/27/23 1534 <Electronically signed by Yair Lazcano DO> Cosigner Signature (if applicable): CC: Dr. Khanh Rodriguez MD ~ Signed [facility] Work Phone: 1(504) 247-775704-24-2024 History and physical note Author Harrison Roper [facility] December 27, 2023 1:37pm Note Date/Time December 27, 2023 1:3 1pm [facility] Health System Medical Records Department [address] [place] [address] H&P Exam - Hospitalist 12/27/23 1317 MR#: [id number] Acct: [id number] Name: MARY ALICE GA MIKAYLA Rep #:[id number] : 1950 73 From: Harrison Hughes PCP: Dr. Khanh Rodriguez MD Status:A DM IN Location: [place] [address] HPI - General General Date of Admission: [...] or pattern drinking alcohol even on asking. [facility] Medical History Abnormal mammogram of left breast [...] Sl. Cloudy, Urine pH 7.0, Ur Specific [place] 1.005, Urine Protein 15 H, Urine Glucose [...] (Auto) 73.0 H, Lymph % (Auto) 19.2, Lawrence % (Auto) 6.7, Eos % (Auto) 0.4, [...] of breast cancer: Patient on anastrozole.Patient follows [facility]. On alendronate continued Living will/advanced directive/end of life care: Patient does not living will or advanced directive. Her is power of trademark attorney for health. After discussion of benefits/risks procedures involved with full code, DNR CC arrest and DNR CC, the patient opted for full code. Patient does want artificial life support including intubation, tube feed, ventilator and/chest compression, central venous catheter, vasopressor and DC shock if needed Total time spent in fzlc-gt-qwhx encounter in discussion of advanced directive 17 minutes. Microbiology Past 72 Hours 12/27/23 09:39 Stool Stool Occult Blood (KENDRA) - Final Occult Blood Positive Laboratory Results 12/27/23 09:25: Urine Color Yellow, Urine Clarity Sl. Cloudy, Urine pH 7.0, Ur Specific [place] 1.005, Urine Protein 15 H, Urine Glucose [...] (Auto) 73.0 H, Lymph % (Auto) 19.2, Lawrence % (Auto) 6.7, Eos % (Auto) 0.4, [...] containing fat. Charges/Coding Visit Charges Inpatient E&M: 92915 Init Hosp L3 Procedures Hospitalists Procedures: 88553 Advncd Care Plan 30 Min 12/27/23 1337 <Electronically signed by Harrison Roper MD> Cosigner Signature (if applicable): CC: Dr. Khanh Rodriguez MD; Dr. Harrison Roper MD~ Signed [facility] Work Phone: 1(767) 311-291103-27-2024 Progress note Author Mariela Martines [facility] November 29, 2023 11:27am Note Date/Time November 29, 2023 11: 15am [facility] [address] [place] [address] [place] [address] Progress Note - Wound Care 11/29/23 1111 MR#: [id number] Acct: [id number] Name: MARY ALICE GA Rep #:[id number] : 1950 73 From: Mariela Martines NP ELECTRON MICROPROBE OPERATOR-C PCP: Dr. Khanh Rodriguez MD Status:R EG RCR Location: History of Present Illness Date of Service: 11/29/23 Chief Complaint: Follow-up on her right lower leg lateral area wound nonhealing since at least November. History of Wound: 72-year-old white female in [place] where she is living duringthe winter. She [...] and is being seen by oncology at [facility] for that. She has left total mastectomy [...] Measurements and Additional Note: Post-Debridement Measurements/Treatment HERMILA - Nurse 1 - General Ulcer Assessment [...] DL 11/08/23 11/15/23 11/22/23 09:52 09:45 09:42 - Today's Visit Information Type of service Follow-up Visit Follow-up Visit (Physician/HOME RESTORATION SERVICE SUPERVISOR (Physician/HOME RESTORATION SERVICE SUPERVISOR ) ) Arrival Mode Ambulatory Ambulatory,Cane Ambulatory,Cane [...] Pain Free? No Yes Yes 11/29/23 09:41 - Today's Visit Information Type of service Follow-up Visit (Physician/HOME RESTORATION SERVICE SUPERVISOR ) Arrival Mode Ambulatory Transfer Assistance None [...] (1-33%) Small (1-33%) Medium (34-66%) -Granulation Quality Latrobe Latrobe Red -Necrosis Amt Large (67-100%) Large (67-100%) [...] Date Recorded By Document 11/08/23 10:23 JF Attributorop 11/08/23 10:34 JF Document 11/15/23 10:04 MW Desktop 11/15/23 10:12 MW Document 11/22/23 10:06 MW Desktop 11/22/23 10:13 MW Document 11/29/23 10:04 [facility] Desktop 11/29/23 10:10 [facility] 11/08/23 11/15/23 11/22/23 10:23 10:04 10:06 Wound [...] Epifix -Expiration Date 07/05/28 -Product Lot Number [id number] -Percent Used 100 -Lot number of Saline Used [id number] -Bleeding Controlled with Pressure Pressure Pressure -Other [...] Desktop 11/22/23 10:23 DL Document 11/29/23 10:11 BMF Desktop 11/29/23 10:13 BMF 11/08/23 11/22/23 11/29/23 10:57 10:21 10:11 Wound [...] from surgery. Follow-up in 1 week 11/29/23 1126 <Electronically signed by Mariela Martines NP ELECTRON MICROPROBE OPERATOR-C> Cosigner Signature (if applicable): CC: ~ Signed [facility] Work Phone: 1(560) 358-526203-20-2024 Progress note Author Mariela Martines [facility] November 22, 2023 11:44am Note Date/Time November 22, 2023 11: 44am [facility] [address] [place] [address] Progress Note - Wound Care 11/22/23 1138 MR#: [id number] Acct: [id number] Name: MARY ALICE GA Rep #:[id number] : 1950 73 From: Mariela Martines ELECTRON MICROPROBE OPERATOR ELECTRON MICROPROBE OPERATOR-C PCP: Dr. Khanh Rodriguez MD Status:R EG RCR Location: History of Present Illness Date of Service: 11/22/23 Chief Complaint: Follow-up on her right lower leg lateral area wound nonhealing since at least November. History of Wound: 72-year-old white female in [place] where she is living duringthe winter. She [...] and is being seen by oncology at [facility] for that. She has left total mastectomy [...] has made arrangements to move back to [place] for a couple of months and will [...] Start: 11/08/23 09:42 Freq: Status: Active Protocol: HERMILA.LOWEXT Activity Type Activity Date Activity User E-sign Co-sign Detail Recorded Client Recorded Date Recorded By Document 11/08/23 09:52 DL Desktop 11/08/23 10:01 DL Document 11/15/23 09:45 DL Desktop 11/15/23 09:59 DL Document 11/22/23 09:42 DL Desktop 11/22/23 09:53 DL 11/08/23 11/15/23 11/22/23 09:52 09:45 09:42 WC - Today's Visit Information Type of service Follow-up Visit Follow-up Visit (Physician/HOME RESTORATION SERVICE SUPERVISOR (Physician/HOME RESTORATION SERVICE SUPERVISOR ) ) Arrival Mode Ambulatory Ambulatory,Cane Ambulatory,Cane [...] Is Patient Pain Free? No Yes Yes WC - Nurse 1 - [...] (1-33%) Small (1-33%) Medium (34-66%) -Granulation Quality Latrobe Latrobe Red -Necrosis Amt Large (67-100%) Large (67-100%) [...] Recorded Date Recorded By Document 11/08/23 10:23 [employer] 11/08/23 10:34 JF Document 11/15/23 10:04 MW [...] Epifix -Expiration Date 07/05/28 -Product Lot Number [id number] -Percent Used 100 -Lot number of Saline Used [id number] -Bleeding Controlled with Pressure Pressure Pressure -Other [...] 11/22/23 1144 <Electronically signed by Mariela Martines NP, NP-C> Cosigner Signature (if applicable): CC: ~ Signed [facility] Work Phone: 1(891) 741-372703-13-2024 Progress note Author Mariela Martines [facility] November 15, 2023 12:35pm Note Date/Time November 15, 2023 12: 36pm [facility] [address] [place] [id number] Progress Note - Wound Care 11/15/23 1229 MR#: [id number] Acct: [id number] Name: MARY ALICE GA Rep #:[id number] : 1950 73 From: Mariela Martines NP ELECTRON MICROPROBE OPERATOR-C PCP: Dr. Khanh Rodriguez MD Status:R EG RCR Location: History of Present Illness Date of Service: 11/15/23 Chief Complaint: Follow-up on her right lower leg lateral area wound nonhealing since at least November. History of Wound: 72-year-old white female in [place] where she is living duringthe winter. She [...] We will also also refer to Dr. aGlaviz for vascular problems she is having in her right lower leg. Her biggest complaint is that she is swelling a lot in her lower extremities. Worried about a blood clot Now she has breast cancer and is being seen by oncology at [facility] for that. She has left total mastectomy [...] Start: 11/08/23 09:42 Freq: Status: Active Protocol: HERMILA.LOWLAURIET Activity Type Activity Date Activity User E-sign Co-sign Detail Recorded Client Recorded Date Recorded By Document 11/08/23 09:52 DL Desktop 11/08/23 10:01 DL Document 11/15/23 09:45 DL Desktop 11/15/23 09:59 DL 11/08/23 11/15/23 09:52 09:45 - Today's Visit Information Type of service Follow-up Visit Follow-up Visit (Physician/HOME RESTORATION SERVICE SUPERVISOR (Physician/HOME RESTORATION SERVICE SUPERVISOR ) ) Arrival Mode Ambulatory Ambulatory,Cane Transfer [...] Amt Small (1-33%) Small (1-33%) -Granulation Quality Latrobe Latrobe -Necrosis Amt Large (67-100%) Large (67-100%) -Necrotic [...] Date Recorded By Document 11/08/23 10:23 JF [employer] 11/08/23 10:34 JF Document 11/15/23 10:04 MW [...] Epifix -Expiration Date 07/05/28 -Product Lot Number [id number] -Percent Used 100 -Lot number of Saline Used [id number] -Bleeding Controlled with Pressure Pressure -Other Type [...] 11/15/23 1235 <Electronically signed by Mariela Martines NP, NP-C> Cosigner Signature (if applicable): CC: ~ Signed [facility] Work Phone: 1(923) 588-842903-06-2024 Progress note Author Hugo Johnson [facility] November 08, 2023 11:59am Note Date/Time November 08, 2023 11:2 6am [facility] [address] [place] [address] Progress Note - Wound Care 11/08/23 1121 MR#: [id number] Acct: [id number] Name: MARY ALICE GA Rep #:[id number] : 1950 73 From: Hugo Hughes PM PCP: Dr. Khanh Rodriguez MD Status:R EG RCR Location: History of Present Illness Date of Service: 11/08/23 Chief Complaint: Follow-up on her right lower leg lateral area wound nonhealing since at least November. History of Wound: 72-year-old white female in [place] where she is living duringthe winter. She [...] and is being seen by oncology at [facility] for that. She has left total mastectomy [...] DL Desktop 11/08/23 10:01 DL 11/08/23 09:52 - Today's Visit Information Type of service Follow-up Visit (Physician/HOME RESTORATION SERVICE SUPERVISOR ) Arrival Mode Ambulatory Transfer Assistance None [...] 0-10 Numeric Is Patient Pain Free? No WC - Nurse 1 - General Ulcer Measurement Start: 11/08/23 09:42 Freq: Status: Active Protocol: Activity Type Activity Date Activity User E-sign Co-sign Detail Recorded Client Recorded Date Recorded By Document 11/08/23 09:52 BRY Desktop 11/08/23 10:01 BRY 11/08/23 09:52 Wound Center Nurse 1 #3 right lateral ankle -Current Size (cm) - Length 2.6 -Current Size (cm) - Width 2.8 -Current Size (cm) - Depth 0.2 -Total Square Cm 7.28 -Exudate Amt Medium -Exudate Type Serosanguineous -Wound Margin Distinct, Outline Attached -Granulation Amt Small (1-33%) -Granulation Quality Latrobe -Necrosis Amt Large (67-100%) -Necrotic Tissue Type Adherent Slough -Structure Exposed N/A -Texture (Elif-wound Skin Appearance) Localized Edema ,Scarring -Moisture (Elif-wound Skin Appearance) No Abnormality -Color (Elif-wound Skin Appearance) Hemosiderin Staining -Temperature (Elif-wound Skin No Abnormality Appearance) (Pt Warm) -Tenderness on Palpation (Elif-wound Yes Skin Appearance) -Ulcer Cleansing Soap and Water -Foul Odor after Cleansing No -Anesthetic Used 5% Lidocaine Gel - Nurse 2 - General Ulcer CM Notes Start: 11/08/23 09:42 Freq: Status: Active Protocol: Activity Type Activity Date Activity User E-sign Co-sign Detail Recorded Client Recorded Date Recorded By Document 11/08/23 10:23 [employer] 11/08/23 10:34 11/08/23 10:23 Wound Center Nurse [...] Epifix -Expiration Date 07/05/28 -Product Lot Number [id number] -Percent Used 100 -Lot number of Saline Used [id number] -Bleeding Controlled with Pressure -Other Type of [...] the GI specialist Dr. Davila here at [facility]. Patient was understanding and will be discussing this with her primary doctor. 11/08/23 1159 <Electronically signed by Hugo Johnson DPM> Cosigner Signature (if applicable): CC: ~ Signed [facility] Work Phone: 1(114) 705-418002-28-2024 Progress note Author Mariela Martines [facility] November 01, 2023 11:59am Note Date/Time November 01, 2023 11:59am [facility] [address] [place] [address] Progress Note - Wound Care 11/01/23 1153 MR#: [id number] Acct: [id number] Name: MARY ALICE GA Rep #:[id number] : 1950 73 From: Mariela Martines NP ELECTRON MICROPROBE OPERATOR-C PCP: Dr. Khanh Rodriguez MD Status:R ESTUARDO RCR Location: History of Present Illness Date of Service: 11/01/23 Chief Complaint: Follow-up on her right lower leg lateral area wound nonhealing since at least November. History of Wound: 72-year-old white female in [place] where she is living duringthe winter. She [...] and is being seen by oncology at [facility] for that. She has left total mastectomy [...] Desktop 10/11/23 10:02 DL Document 10/18/23 09:49 [facility] Desktop 10/18/23 09:56 [facility] Document 10/23/23 08:56 DL Desktop 10/23/23 09:08 DL Document 10/25/23 09:43 F Desktop 10/25/23 09:52 BMF Document 11/01/23 08:51 [facility] Desktop 11/01/23 08:56 F 10/11/23 10/18/23 10/23/23 09:55 09:49 08:56 WC - Today's Visit Information Type of service Follow-up Visit Follow-up Visit Nurse-only (Physician/HOME RESTORATION SERVICE SUPERVISOR (Physician/HOME RESTORATION SERVICE SUPERVISOR Visit ) ) Arrival Mode Ambulatory Ambulatory [...] Yes Yes Yes 10/25/23 11/01/23 09:43 08:51 [facility] Today's Visit Information Type of service Follow-up Visit Follow-up Visit (Physician/HOME RESTORATION SERVICE SUPERVISOR (Physician/HOME RESTORATION SERVICE SUPERVISOR ) ) Arrival Mode Ambulatory,Cane Ambulatory,Cane Transfer [...] Desktop 10/11/23 10:21 MW Document 10/18/23 10:11 [facility] 10/18/23 10:18 JF Document 10/25/23 10:00 [...] Date 07/05/28 07/05/28 09/14/27 -Product Lot Number [id number] 004 012 -Percent Used 100 100 100 -Lot number of Saline Used [id number] -Bleeding Controlled with Pressure Pressure Pressure -Treatment [...] Epifix -Expiration Date 07/05/28 -Product Lot Number [id number] -Percent Used 100 -Lot number of Saline Used [id number] -Bleeding Controlled with Pressure -Treatment Response Procedure [...] Cosigner Signature (if applicable): CC: ~ Signed [facility] Work Phone: 1(893) 642-363802-22-2024 Procedure [facility] 10-26-2023 History and physical note Author Shabbir Galaviz [facility] October 26, 2023 1:23pm Note Date/Time October 26, 2023 1:23pm [facility] System Medical Records Department [address] [place] [address] History & Physical Exam 10/26/23 1321 MR#: [id number] Acct: [id number] Name: MARY ALICE GA Rep #:[id number] : 1950 73 From: Shabbir Galaviz MD PCP: Dr. Khanh Rodriguze MD Status:R [facility] Location: [facility] HPI - General HPI Narrative MARY ALICE GA, is a 73 F who presents with recurrent right lower extremity venous wounds, prior treatment of above knee segments. She presents for ablationof below knee incompetent GSV. [facility] Medical History Abnormal mammogram of left breast [...] Allergy Intermediate Rash Verified 09/21/23 15:39 [From Hibiclens] Family History Mother Alzheimer disease Father Heart [...] Rodriguez MD; Dr. Shabbir Galaviz MD~ Signed [facility] Work Phone: 1(681) 353-561502-21-2024 Progress note Author Mariela Martines [facility] October 25, 2023 11:44am Note Date/Time October 25, 2023 11:44am [facility] [address] [place] [address] Progress Note - Wound Care 10/25/23 1139 MR#: [id number] Acct: [id number] Name: MARY ALICE GA Rep #:[id number] : 1950 73 From: Mariela Martines NP ELECTRON MICROPROBE OPERATOR-C PCP: Dr. Khanh Rodriguez MD Status:R EG RCR Location: History of Present Illness Date of Service: 10/25/23 Chief Complaint: Follow-up on her right lower leg lateral area wound nonhealing since at least November. History of Wound: 72-year-old white female in [place] where she is living duringthe winter. She [...] and is being seen by oncology at [facility] for that. She has left total mastectomy [...] Measurements and Additional Note: Post-Debridement Measurements/Treatment HERMILA - Nurse 1 - General Ulcer Assessment [...] BMF 10/11/23 10/18/23 10/23/23 09:55 09:49 08:56 - Today's Visit Information Type of service Follow-up Visit Follow-up Visit Nurse-only (Physician/HOME RESTORATION SERVICE SUPERVISOR (Physician/HOME RESTORATION SERVICE SUPERVISOR Visit ) ) Arrival Mode Ambulatory Ambulatory [...] Pain Free? Yes Yes Yes 10/25/23 09:43 - Today's Visit Information Type of service Follow-up Visit (Physician/HOME RESTORATION SERVICE SUPERVISOR ) Arrival Mode Ambulatory,Cane Transfer Assistance None [...] Date 07/05/28 07/05/28 09/14/27 -Product Lot Number [id number] 004 012 -Percent Used 100 100 100 -Lot number of Saline Used [id number] -Bleeding Controlled with Pressure Pressure Pressure -Treatment [...] injury of unspecified body region, initial encounter 10/25/231143 <Electronically signed by Mariela Martines NP ELECTRON MICROPROBE OPERATOR-C> Cosigner Signature (if applicable): CC: ~ Signed [facility] Work Phone: 1(844) 307-346102-14-2024 Progress note Author Hugo Johnson [facility] October 18, 2023 11:52am Note Date/Time October 18, 2023 11:48am [facility] [address] [place] [address]35 Progress Note - Wound Care 10/18/23 1147 MR#: [id number] Acct: [id number] Name: MARY ALICE GA Rep #:[id number] : 1950 73 From: Hugo Hughes PM PCP: Dr. Khanh Rodriguez MD Status:R EG RCR Location: History of Present Illness Date of Service: 10/18/23 Chief Complaint: Follow-up on her right lower leg lateral area wound nonhealing since at least November. History of Wound: 72-year-old white female in [place] where she is living duringthe winter. She [...] and is being seen by oncology at [facility] for that. She has left total mastectomy [...] Measurements and Additional Note: Post-Debridement Measurements/Treatment HERMILA - Nurse 1 - General Ulcer Assessment Start: 10/11/23 09:55 Freq: Status: Active Protocol: SAHIL Activity Type Activity Date Activity User E-sign Co-sign Detail Recorded Client Recorded Date Recorded By Document 10/11/23 09:55 DL Desktop 10/11/23 10:02 DL Document 10/18/23 09:49 [facility] Desktop 10/18/23 09:56 F 10/11/23 10/18/23 09:55 09:49 - Today's Visit Information Type of service Follow-up Visit Follow-up Visit (Physician/HOME RESTORATION SERVICE SUPERVISOR (Physician/HOME RESTORATION SERVICE SUPERVISOR ) ) Arrival Mode Ambulatory Ambulatory Transfer [...] Desktop 10/11/23 10:02 DL Document 10/18/23 09:49 [facility] Desktop 10/18/23 09:56 [facility] 10/11/23 10/18/23 09:55 09:49 Wound Center Nurse [...] 10/18/23 10:11 JF Laptop 10/18/23 10:18 JF 10/11/23 10/18/23 10:14 10:11 Wound Center Nurse [...] -Expiration Date 07/05/28 07/05/28 -Product Lot Number [id number] 004 -Percent Used 100 100 -Lot number of Saline Used [id number] -Bleeding Controlled with Pressure Pressure -Treatment Response [...] Cosigner Signature (if applicable): CC: ~ Signed [facility] Work Phone: 1(186) 717-366902-07-2024 Progress note Author Mariela Martines [facility] October 11, 2023 10:43am Note Date/Time October 11, 2023 1 0:43am [facility] [place] [address] Progress Note - Wound Care 10/11/23 1040 MR#: [id number] Acct: [id number] Name: MARY ALICE GA Rep #:[id number] : 1950 73 From: Mariela Martines NP ELECTRON MICROPROBE OPERATOR-C PCP: Dr. Khanh Rodriguez MD Status:R EG RCR Location: History of Present Illness Date of Service: 10/11/23 Chief Complaint: Follow-up on her right lower leg lateral area wound nonhealing since at least November. History of Wound: 72-year-old white female in [place] where she is living duringthe winter. She [...] and is being seen by oncology at [facility] for that. She has left total mastectomy [...] DL Desktop 10/11/23 10:02 DL 10/11/23 09:55 - Today's Visit Information Type of service Follow-up Visit (Physician/HOME RESTORATION SERVICE SUPERVISOR ) Arrival Mode Ambulatory Transfer Assistance None [...] Epifix -Expiration Date 07/05/28 -Product Lot Number [id number] -Percent Used 100 -Lot number of Saline Used [id number] -Bleeding Controlled with Pressure -Treatment Response Procedure [...] 1043 <Electronically signed by Mariela Martines NP ELECTRON MICROPROBE OPERATOR-C> Cosigner Signature (if applicable): CC: ~ Signed [facility] Work Phone: 1([phone]) 903-361901-31-2024 Progress note Author Mariela Martines [facility] October 04, 2023 12:13pm Note Date/Time October 04, 2023 1 2:13pm [facility] [address] [place] [address] Progress Note - Wound Care 10/04/23 1210 MR#: [id number] Acct: [id number] Name: MARY ALICE GA Rep #:[id number] : 1950 73 From: Mariela Martines NP ELECTRON MICROPROBE OPERATOR-C PCP: Dr. Khanh Rodriguez MD Status:R EG RCR Location: History of Present Illness Date of Service: 10/04/23 Chief Complaint: Follow-up on her right lower leg lateral area wound nonhealing since at least November. History of Wound: 72-year-old white female in [place] where she is living duringthe winter. She [...] and is being seen by oncology at [facility] for that. She has left total mastectomy on 06/12/2023. She states she is healing well fromth. Progress of Wound: The francis wound is [...] February. Patient would like to leave for [place] in October Subjective Subjective Patient agrees with [...] service Follow-up Visit Follow-up Visit Follow-up Visit (Physician/HOME RESTORATION SERVICE SUPERVISOR (Physician/HOME RESTORATION SERVICE SUPERVISOR (Physician/HOME RESTORATION SERVICE SUPERVISOR ) ) ) Arrival Mode Ambulatory Ambulatory,Cane [...] Pain Free? Yes Yes Yes 10/04/23 09:58 - Today's Visit Information Type of service Follow-up Visit (Physician/HOME RESTORATION SERVICE SUPERVISOR ) Arrival Mode Ambulatory,Cane Transfer Assistance None [...] Amt Large (67-100%) Large (67-100%) -Granulation Quality Latrobe,Red Latrobe -Necrosis Amt None Present (0 Small (1-33%) [...] MW Edit Result 09/13/23 10:05 MW (1) [id number] 09/14/23 06:58 PL Document 09/27/23 10:12 MW [...] Date 05/05/28 05/05/28 05/05/28 -Product Lot Number [id number] -Percent Used 100 100 100 -Lot number of Saline Used [id number] -Bleeding Controlled with Pressure Pressure Pressure -Treatment [...] Wound Center Nurse 2 #1- R LAT GISELL (P/O BASAL CELL CA) -Time -Correct Patient [...] Tissue -Expiration Date 06/04/28 -Product Lot Number [id number] -Percent Used 100 -Lot number of Saline Used [id number] -Bleeding Controlled with Pressure -Treatment Response Procedure [...] 1213 <Electronically signed by Mariela Martines NP ELECTRON MICROPROBE OPERATOR-C> Cosigner Signature (if applicable): CC: ~ Signed [facility] Work Phone: 1(309) 255-520401-24-2024 Progress note Author Mariela Martines [facility] September 27, 2023 10:46am Note Date/Time September 27, 2023 1 0:39am [facility] [address] [place] [address] Progress Note - Wound Care 09/27/23 1037 MR#: [id number] Acct: [id number] Name: MARY ALICE GA Rep #:[id number] : 1950 73 From: Mariela Martines ELECTRON MICROPROBE OPERATOR ELECTRON MICROPROBE OPERATOR-C PCP: Dr. Khanh Rodriguez MD Status:R EG RCR Location: History of Present Illness Date of Service: 09/27/23 Chief Complaint: Follow-up on her right lower leg lateral area wound nonhealing since at least November. History of Wound: 72-year-old white female in [place] where she is living duringthe winter. She [...] and is being seen by oncology at [facility] for that. She has left total mastectomy [...] 09/27/23 09:58 BMF Desktop 09/27/23 10:01 BMF 0109/13/23 09/27/23 09:49 09:49 09:58 - Today's Visit Information Type of service Follow-up Visit Follow-up Visit Follow-up Visit (Physician/HOME RESTORATION SERVICE SUPERVISOR (Physician/HOME RESTORATION SERVICE SUPERVISOR (Physician/HOME RESTORATION SERVICE SUPERVISOR ) ) ) Arrival Mode Ambulatory Ambulatory,Cane [...] Amt Large (67-100%) Large (67-100%) -Granulation Quality Latrobe,Red Latrobe -Necrosis Amt None Present (0 Small (1-33%) [...] MW Edit Result 09/13/23 10:05 MW (1) [id number] 09/14/23 06:58 PL Document 09/27/23 10:12 MW [...] Bioengineered Tissue Epifix Epifix -Expiration Date 05/05/28 05/05/2828 -Product Lot Number [id number] -Percent Used 100 100 100 -Lot number of Saline Used [id number] -Bleeding Controlled with Pressure Pressure Pressure -Treatment [...] 1046 <Electronically signed by Mariela Martines NP ELECTRON MICROPROBE OPERATOR-C> Cosigner Signature (if applicable): CC: ~ Signed [facility] Work Phone: 1(615) 484-619401-10-2024 Progress note Author Mariela Martines [facility] September 13, 2023 12:26pm Note Date/Time September 13, 2023 1 2:09pm [facility] [address] [place] [address] Progress Note - Wound Care 09/13/23 1206 MR#: [id number] Acct: [id number] Name: MARY ALICE GA Rep #:[id number] : 1950 72 From: Mariela Martines NP ELECTRON MICROPROBE OPERATOR-C PCP: Dr. Khanh Rodrigeuz MD Status:R EG RCR Location: History of Present Illness Date of Service: 09/13/23 Chief Complaint: Follow-up on her right lower leg lateral area wound nonhealing since at least November. History of Wound: 72-year-old white female in [place] where she is living duringthe winter. She [...] and is being seen by oncology at [facility] for that. She has left total mastectomy [...] Start: 09/06/23 09:48 Freq: Status: Active Protocol: HERMILAContour Activity Type Activity Date Activity User E-sign Co-sign Detail Recorded Client Recorded Date Recorded By Document 09/06/23 09:49 DL Desktop 09/06/23 09:59 DL Document 09/13/23 09:49 DL Desktop 09/13/23 09:58 DL 09/06/23 09/13/23 09:49 09:49 - Today's Visit Information Type of service Follow-up Visit Follow-up Visit (Physician/HOME RESTORATION SERVICE SUPERVISOR (Physician/HOME RESTORATION SERVICE SUPERVISOR ) ) Arrival Mode Ambulatory Ambulatory,Cane Transfer [...] Amt Large (67-100%) Large (67-100%) -Granulation Quality Latrobe,Red Latrobe -Necrosis Amt None Present (0 Small (1-33%) [...] -Expiration Date 05/05/28 05/05/28 -Product Lot Number [id number] -Percent Used 100 100 -Lot number of Saline Used [id number] -Bleeding Controlled with Pressure Pressure -Treatment Response [...] 1226 <Electronically signed by Mariela Martines NP ELECTRON MICROPROBE OPERATOR-C> Cosigner Signature (if applicable): CC: ~ Signed [facility] Work Phone: 1(671) 860-555401-03-2024 Progress note Author Hugo Johnson [facility] September 06, 2023 11:03am Note Date/Time September 06, 2023 11 :03am [facility] [address] [place] [address] Progress Note - Wound Care 09/06/23 1057 MR#: [id number] Acct: [id number] Name: MARY ALICE GA Rep #:[id number] : 1950 72 From: Hugo Hughes PM PCP: Dr. Khanh Rodriguez MD Status:R EG RCR Location: History of Present Illness Date of Service: 09/06/23 Chief Complaint: Follow-up on her right lower leg lateral area wound nonhealing since at least November. History of Wound: 72-year-old white female in [place] where she is living duringthe winter. She [...] and is being seen by oncology at [facility] for that. She has left total mastectomy [...] Visit Information Type of service Follow-up Visit (Physician/HOME RESTORATION SERVICE SUPERVISOR ) Arrival Mode Ambulatory Transfer Assistance None [...] Attached -Granulation Amt Large (67-100%) -Granulation Quality Latrobe,Red -Necrosis Amt None Present (0 %) -Structure [...] Epifix -Expiration Date 05/05/28 -Product Lot Number [id number] -Percent Used 100 -Lot number of Saline Used [id number] -Bleeding Controlled with Pressure -Treatment Response Procedure [...] Cosigner Signature (if applicable): CC: ~ Signed [facility] Work Phone: 1(869) 549-758810-26-2023 Progress note Author Thalia Barroso [facility] June 29, 2023 9:15am Note Date/Time June 28, 2023 1 :04pm [facility] [address] [place] [address] Progress Note - Wound Care 06/28/23 1304 MR#: [id number] Acct: [id number] Name: MARY ALICE GA Rep #:[id number] : 1950 72 From: Thalia mark ELECTRON MICROPROBE OPERATOR ELECTRON MICROPROBE OPERATOR-C PCP: Dr. Khanh Rodriguez MD Status:R EG RCR Location: History of Present Illness Date of Service: 06/28/23 Chief Complaint: Follow-up on her right lower leg lateral area wound nonhealing since at least November. History of Wound: 72-year-old white female in [place] where she is living duringthe winter. She [...] and is being seen by oncology at [facility] for that. She has left total mastectomy [...] Method Room Air Charges/Coding Procedures Integumentary 150xxx-152xx: 89330 Skin sub graft trnk/arm/leg (Right lateral leg ulcer) Multi Select Codes Integumentary Integumentary CPT Codes: 41820 Nina subq tissue 20 sq cm/< (right [...] Recorded Date Recorded By Document 06/14/23 10:08 [employer] 06/14/23 10:16 [employer] Document 06/21/23 10:48 [employer] 06/21/23 11:05 [employer] Document 06/28/23 09:53 DL Desktop 06/28/23 10:02 DL 06/14/23 06/21/23 06/28/23 10:08 10:48 09:53 - Today's Visit Information Type of service Follow-up Visit Nurse-only Follow-up Visit (Physician/HOME RESTORATION SERVICE SUPERVISOR Visit (Physician/HOME RESTORATION SERVICE SUPERVISOR ) ) Arrival Mode Ambulatory Ambulatory Ambulatory [...] Recorded Date Recorded By Document 06/14/23 10:08 [employer] Desktop 06/14/23 10:16 [employer] Document 06/21/23 10:48 [employer] Desktop 06/21/23 11:05 [employer] Document 06/28/23 09:53 DL Desktop 06/28/23 10:02 [...] MW Edit Result 06/14/23 10:26 MW (1) [id number] 06/16/23 15:15 PL Document 06/21/23 11:18 MW [...] Date 03/04/28 03/04/28 03/04/28 -Product Lot Number [id number] 027 -Percent Used 100 100 100 -Lot number of Saline Used [id number] -Bleeding Controlled with Pressure Pressure Pressure -Treatment [...] 0915 <Electronically signed by Thalia Barroso NP ELECTRON MICROPROBE OPERATOR-C> Cosigner Signature (if applicable): CC: ~ Signed [facility] Work Phone: 1(564) 771-679810-18-2023 Progress note Author Mariela Martines [facility] June 21, 2023 11:48am Note Date/Time June 21, 2023 1 1:42am [facility] [address] [place] [address] Progress Note - Wound Care 06/21/23 1138 MR#: [id number] Acct: [id number] Name: MARY ALICE GA Rep #:[id number] : 1950 72 From: Mariela Martines NP ELECTRON MICROPROBE OPERATOR-C PCP: Dr. Khanh Rodriguez MD Status:R EG RCR Location: History of Present Illness Date of Service: 06/21/23 Chief Complaint: Follow-up on her right lower leg lateral area wound nonhealing since at least November. History of Wound: 72-year-old white female in [place] where she is living duringthe winter. She [...] and is being seen by oncology at [place] for that also. Progress of Wound: So [...] Recorded Date Recorded By Document 06/14/23 10:08 [employer] 06/14/23 10:16 [facility] Document 06/21/23 10:48 [employer] Desktop 06/21/23 11:05 [employer] 06/14/23 06/21/23 10:08 10:48 - Today's Visit Information Type of service Follow-up Visit Nurse-only (Physician/HOME RESTORATION SERVICE SUPERVISOR Visit ) Arrival Mode Ambulatory Ambulatory Transfer [...] Recorded Date Recorded By Document 06/14/23 10:08 [employer] Desktop 06/14/23 10:16 BMF Document 06/21/23 10:48 [employer] Desktop 06/21/23 11:05 BMF 06/14/23 06/21/23 10:08 [...] MW Edit Result 06/14/23 10:26 MW (1) [id number] 06/16/23 15:15 PL Document 06/21/23 11:18 MW [...] Not Healed #3 right lateral ankle -Time 10: 11:19 -Correct Patient Yes Yes -Correct Side, [...] LAT LE (P/O BASAL CELL CA) -Time 10: 11:19 -Correct Patient Yes Yes -Correct Side, [...] -Expiration Date 03/04/28 03/04/28 -Product Lot Number [id number] -Percent Used 100 100 -Lot number of Saline Used [id number] -Bleeding Controlled with Pressure Pressure -Treatment Response [...] 1148 <Electronically signed by Mariela Martines NP ELECTRON MICROPROBE OPERATOR-C> Cosigner Signature (if applicable): CC: ~ Signed [facility] Work Phone: 1(357) 707-710910-11-2023 Progress note Author Mariela Martines [facility] June 14, 2023 11:10am Note Date/Time June 14, 2023 1 0:44am [facility] [address] [place] [address] Progress Note - Wound Care 06/14/23 1042 MR#: [id number] Acct: [id number] Name: MARY ALICE GA Rep #:[id number] : 1950 72 From: Mariela Martines NP ELECTRON MICROPROBE OPERATOR-C PCP: Dr. Khanh Rodriguez MD Status:R EG RCR Location: History of Present Illness Date of Service: 06/14/23 Chief Complaint: Follow-up on her right lower leg lateral area wound nonhealing since at least November. History of Wound: 72-year-old white female in [place] where she is living duringthe winter. She [...] and is being seen by oncology at [place] for that also. Progress of Wound: So [...] L 16 142/58 H Room Air 06/14/23 10:08 06/14/23 10:08 06/14/23 10:08 06/14/23 10:08 06/14/23 10:08 [...] Recorded Date Recorded By Document 06/14/23 10:08 [facility] Desktop 06/14/23 10:16 [facility] 06/14/23 10:08 - Today's Visit Information Type of service Follow-up Visit (Physician/HOME RESTORATION SERVICE SUPERVISOR ) Arrival Mode Ambulatory Transfer Assistance None [...] Recorded Date Recorded By Document 06/14/23 10:08 [facility] Desktop 06/14/23 10:16 [facility] 06/14/23 10:08 Wound Center Nurse 1 #4 [...] Mesh -Expiration Date 03/04/28 -Product Lot Number [id number] -Percent Used 100 -Lot number of Saline Used [id number] -Bleeding Controlled with Pressure -Treatment Response Procedure [...] 1110 <Electronically signed by Mariela Martines NP ELECTRON MICROPROBE OPERATOR-C> Cosigner Signature (if applicable): CC: ~ Signed [facility] Work Phone: 1(178) 484-177508-16-2023 Progress note Author Mariela Martines [facility] April 19, 2023 12:33pm Note Date/Time April 19, 2023 12 :33pm [facility] [address] [place] [address] Progress Note - Wound Care 04/19/23 1224 MR#: [id number] Acct: [id number] Name: MARY ALICE GA Rep #:[id number] : 1950 72 From: Mariela Martines NP ELECTRON MICROPROBE OPERATOR-C PCP: Dr. Khanh Rodriguez MD Status:R EG RCR Location: History of Present Illness Date of Service: 04/19/23 Chief Complaint: Follow-up on her right lower leg lateral area wound nonhealing since at least November. History of Wound: 72-year-old white female in [place] where she is living duringthe winter. She [...] Start: 04/19/23 10:55 Freq: Status: Active Protocol: SAHIL Activity Type Activity Date Activity User E-sign Co-sign Detail Recorded Client Recorded Date Recorded By Document 04/19/23 10:55 [facility] [id number] 04/19/23 11:03 [facility] 04/19/23 10:55 - Today's Visit Information Type of service Follow-up Visit (Physician/HOME RESTORATION SERVICE SUPERVISOR ) Arrival Mode Ambulatory,Cane Transfer Assistance None [...] Recorded Date Recorded By Document 04/19/23 10:55 [facility] [id number] 04/19/23 11:03 [facility] 04/19/23 10:55 Wound Center Nurse 1 #1- [...] Date Recorded By Document 04/19/23 11:14 MW [id number] 04/19/23 11:29 MW 04/19/23 11:14 Wound Center [...] Disc -Expiration Date 01/03/28 -Product Lot Number [id number] -Percent Used 100 -Lot number of Saline Used [id number] -Bleeding Controlled with NA,Pressure -Treatment Response Procedure Tolerated Well -Offloading No -Debridement - Subq, 1st 20sq cm No -Apply Skin Sub - 1st 25 sq cm - Legs 1 -Epifix 18mm Disc 3 Pain Scale: 0-10 Numeric Is Patient Pain Free? Yes HERMILA - Nurse 3 - General Ulcer D/C NN Start: 04/19/23 10:55 Freq: Status: Active Protocol: Activity Type Activity Date Activity User E-sign Co-sign Detail Recorded Client Recorded Date Recorded By Document 04/19/23 11:45 [facility] [id number] 04/19/23 11:46 BMF 04/19/23 11:45 Wound Care Center Nurse 3 [...] 1233 <Electronically signed by Mariela Martines NP ELECTRON MICROPROBE OPERATOR-C> Cosigner Signature (if applicable): CC: ~ Signed [facility] Work Phone: 1(423) 267-665507-26-2023 Progress note Author Mariela Martines [facility] March 29, 2023 12:10pm Note Date/Time March 29, 2023 12:1 0pm [facility] [address] [place] [address] Progress Note - Wound Care 03/29/23 1209 MR#: [id number] Acct: [id number] Name: MARY ALICE GA Rep #:[id number] : 1950 72 From: Mariela Martines ELECTRON MICROPROBE OPERATOR ELECTRON MICROPROBE OPERATOR-C PCP: Dr. Khanh Rodriguez MD Status:R EG RCR Location: History of Present Illness Date of Service: 03/29/23 Chief Complaint: Follow-up on her right lower leg lateral area wound nonhealing since at least November. History of Wound: 72-year-old white female in [place] where she is living duringthe winter. She [...] Start: 03/15/23 09:23 Freq: Status: Active Protocol: HERMILA.RAFFI Activity Type Activity Date Activity User E-sign Co-sign Detail Recorded Client Recorded Date Recorded By Document 03/15/23 09:26 DL [id number] 03/15/23 09:37 DL Document 03/22/23 10:37 RB [id number] 03/22/23 10:38 RB Document 03/29/23 11:11 RB [id number] 03/29/23 11:15 RB 03/15/23 03/22/23 03/29/23 09:26 10:37 11:11 WC - Today's Visit Information Type of service Follow-up Visit Follow-up Visit Follow-up Visit (Physician/HOME RESTORATION SERVICE SUPERVISOR (Physician/HOME RESTORATION SERVICE SUPERVISOR (Physician/HOME RESTORATION SERVICE SUPERVISOR ) ) ) Arrival Mode Ambulatory,Cane Ambulatory [...] Date Recorded By Document 03/15/23 09:26 DL [id number] 03/15/23 09:37 DL Document 03/22/23 10:37 RB [id number] 03/22/23 10:38 RB Document 03/29/23 11:11 RB [id number] 03/29/23 11:15 RB 03/15/23 03/22/23 03/29/23 09:26 10:37 11:11 Wound Center Nurse 1 2. R forearm -Current Size (cm) - Length 0 -Current Size (cm) - Width 0 -Current Size (cm) - Depth 0 -Total Square Cm 0 -Photo Taken Yes -Exudate Amt None Present -Wound Margin Indistinct, Non -Visible -Granulation Amt Large (67-100%) -Granulation Quality Latrobe -Necrosis Amt None Present (0 %) -Structure [...] Medium (34-66%) Medium (34-66%) -Granulation Quality Red Latrobe Latrobe -Slough/Fibrin Yes Yes -Necrosis Amt Medium (34-66%) [...] Date Recorded By Document 03/15/23 09:55 MW [id number] 03/15/23 10:02 MW Document 03/22/23 10:59 MW [id number] 03/22/23 11:04 MW Document 03/29/23 11:25 MW [id number] 03/29/23 11:27 MW 03/15/23 03/22/23 03/29/23 09:55 [...] -Expiration Date 12/04/27 11/03/27 -Product Lot Number [id number] -Percent Used 100 100 -Lot number of Saline Used [id number] -Bleeding Controlled with Pressure Pressure -Treatment Response [...] Date Recorded By Document 03/15/23 10:02 MW [id number] 03/15/23 10:02 MW Edit Result 03/15/23 10:02 MW (1) [id number] 03/15/23 10:03 MW Edit Result 03/15/23 10:02 MW (2) [id number] 03/15/23 10:04 MW Document 03/22/23 11:16 RB [id number] 03/22/23 11:17 RB Document 03/29/23 11:27 MW [id number] 03/29/23 11:28 MW (1) Right - Compression [...] 11:27 Wound Care Center Nurse 3 #1- Deepika JAMESON (P/O BASAL CELL CA) -Ulcer Cleansing [...] 1210 <Electronically signed by Mariela Martines NP ELECTRON MICROPROBE OPERATOR-C> Cosigner Signature (if applicable): CC: ~ Signed [facility] Work Phone: 1(103) 860-579107-19-2023 Progress note Author Mariela Martines [facility] March 22, 2023 11:56am Note Date/Time March 22, 2023 11:5 6am [facility] [address] [place] [address] Progress Note - Wound Care 03/22/23 1153 MR#: [id number] Acct: [id number] Name: MARY ALICE GA Rep #:[id number] : 1950 72 From: Mariela Martines NP ELECTRON MICROPROBE OPERATOR-C PCP: Dr. Khanh Rodriguez MD Status:R [facility] Location: History of Present Illness Date of Service: 03/22/23 Chief Complaint: Follow-up on her right lower leg lateral area wound nonhealing since at least November. History of Wound: 72-year-old white female in [place] where she is living duringthe winter. She [...] Date Recorded By Document 03/15/23 09:26 DL [id number] 03/15/23 09:37 DL Document 03/22/23 10:37 RB [id number] 03/22/23 10:38 RB 03/15/23 03/22/23 09:26 10:37 WC - Today's Visit Information Type of service Follow-up Visit Follow-up Visit (Physician/HOME RESTORATION SERVICE SUPERVISOR (Physician/HOME RESTORATION SERVICE SUPERVISOR ) ) Arrival Mode Ambulatory,Cane Ambulatory Transfer [...] Is Patient Pain Free? Yes Yes HERMILA - Nurse 1 - General Ulcer Measurement Start: 03/15/23 09:23 Freq: Status: Active Protocol: Activity Type Activity Date Activity User E-sign Co-sign Detail Recorded Client Recorded Date Recorded By Document 03/15/23 09:26 DL [id number] 03/15/23 09:37 DL Document 03/22/23 10:37 RB [id number] 03/22/23 10:38 RB 03/15/23 03/22/23 09:26 10:37 Wound Center Nurse 1 2. R forearm -Current Size (cm) - Length 0 -Current Size (cm) - Width 0 -Current Size (cm) - Depth 0 -Total Square Cm 0 -Photo Taken Yes -Exudate Amt None Present -Wound Margin Indistinct, Non -Visible -Granulation Amt Large (67-100%) -Granulation Quality Latrobe -Necrosis Amt None Present (0 %) -Structure [...] Medium (34-66%) Medium (34-66%) -Granulation Quality Red Latrobe -Slough/Fibrin Yes -Necrosis Amt Medium (34-66%) Medium [...] Date Recorded By Document 03/15/23 09:55 MW [id number] 03/15/23 10:02 MW Document 03/22/23 10:59 MW [id number] 03/22/23 11:04 MW 03/15/23 03/22/23 09:55 10:59 [...] -Expiration Date 12/04/27 11/03/27 -Product Lot Number [id number] -Percent Used 100 100 -Lot number of Saline Used [id number] -Bleeding Controlled with Pressure Pressure -Treatment Response [...] Date Recorded By Document 03/15/23 10:02 MW [id number] 03/15/23 10:02 MW Edit Result 03/15/23 10:02 MW (1) [id number] 03/15/23 10:03 MW Edit Result 03/15/23 10:02 MW (2) [id number] 03/15/23 10:04 MW Document 03/22/23 11:16 RB [id number] 03/22/23 11:17 RB (1) Right - Compression [...] 1156 <Electronically signed by Mariela Martines NP ELECTRON MICROPROBE OPERATOR-C> Cosigner Signature (if applicable): CC: ~ Signed [facility] Work Phone: 1(701) 512-340107-12-2023 Progress note Author Mariela Martines [facility] March 15, 2023 12:30pm Note Date/Time March 15, 2023 12:3 0pm [facility] [address] [place] [address] Progress Note - Wound Care 03/15/23 1225 MR#: [id number] Acct: [id number] Name: MARY ALICE GA Rep #:[id number] : 1950 72 From: Mariela Martines NP ELECTRON MICROPROBE OPERATOR-C PCP: Dr. Khanh Rodriguez MD Status:R EG RCR Location: History of Present Illness Date of Service: 03/15/23 Chief Complaint: Follow-up on her right lower leg lateral area wound nonhealing since at least November. History of Wound: 72-year-old white female in [place] where she is living duringthe winter. She [...] Date Recorded By Document 03/15/23 09:26 DL [id number] 03/15/23 09:37 DL 03/15/23 09:26 - Today's Visit Information Type of service Follow-up Visit (Physician/HOME RESTORATION SERVICE SUPERVISOR ) Arrival Mode Ambulatory,Cane Transfer Assistance None [...] Date Recorded By Document 03/15/23 09:26 DL [id number] 03/15/23 09:37 DL 03/15/23 09:26 Wound Center Nurse 1 2. R forearm -Current Size (cm) - Length 0 -Current Size (cm) - Width 0 -Current Size (cm) - Depth 0 -Total Square Cm 0 -Photo Taken Yes -Exudate Amt None Present -Wound Margin Indistinct, Non -Visible -Granulation Amt Large (67-100%) -Granulation Quality Latrobe -Necrosis Amt None Present (0 %) -Structure [...] Date Recorded By Document 03/15/23 09:55 MW [id number] 03/15/23 10:02 MW 03/15/23 09:55 Wound Center [...] Mesh -Expiration Date 12/04/27 -Product Lot Number [id number] -Percent Used 100 -Lot number of Saline Used [id number] -Bleeding Controlled with Pressure -Treatment Response Procedure [...] Date Recorded By Document 03/15/23 10:02 MW [id number] 03/15/23 10:02 MW Edit Result 03/15/23 10:02 MW (1) [id number] 03/15/23 10:03 MW Edit Result 03/15/23 10:02 MW (2) [id number] 03/15/23 10:04 MW (1) Right - Compression [...] 03/15/23 1230 <Electronically signed by Mariela Martines NP, NP-C> Cosigner Signature (if applicable): CC: ~ Signed [facility] Work Phone: 1(569) 722-466506-28-2023 Progress note Author Mariela Martines [facility] March 01, 2023 11:32am Note Date/Time March 01, 2023 11:3 2am [facility] [address] [place] [address] Progress Note - Wound Care 03/01/23 1124 MR#: [id number] Acct: [id number] Name: MARY ALICE GA Rep #:[id number] : 1950 72 From: Mariela Martines NP, NP-C PCP: Dr. Khanh Rodriguez MD Status:R EG RCR Location: History of Present Illness Date of Service: 03/01/23 Chief Complaint: Follow-up on her right lower leg lateral area wound nonhealing since at least November. History of Wound: 72-year-old white female in [place] where she is living duringthe winter. She [...] because going down to her cabin in [facility] for 2 weeks. Objective Data Objective Data [...] Recorded Date Recorded By Document 02/08/23 11:07 [facility] [id number] 02/08/23 11:13 [facility] Document 02/15/23 09:30 RB [id number] 02/15/23 09:34 RB Document 02/22/23 09:56 RB [id number] 02/22/23 09:59 RB Document 03/01/23 09:39 [facility] [id number] 03/01/23 09:52 BMF 02/08/23 02/15/23 02/22/23 11:07 09:30 09:56 WC - Today's Visit Information Type of service Follow-up Visit Follow-up Visit Follow-up Visit (Physician/HOME RESTORATION SERVICE SUPERVISOR (Physician/HOME RESTORATION SERVICE SUPERVISOR (Physician/HOME RESTORATION SERVICE SUPERVISOR ) ) ) Arrival Mode Ambulatory Ambulatory [...] Pain Free? Yes Yes Yes 03/01/23 09:39 WC - Today's Visit Information Type of service Follow-up Visit (Physician/HOME RESTORATION SERVICE SUPERVISOR ) Arrival Mode Ambulatory,Cane Transfer Assistance None [...] Recorded Date Recorded By Document 02/08/23 11:07 [facility] [id number] 02/08/23 11:13 [facility] Document 02/15/23 09:30 RB [id number] 02/15/23 09:34 RB Document 02/22/23 09:56 RB [id number] 02/22/23 09:59 RB Document 03/01/23 09:39 [facility] [id number] 03/01/23 09:52 [facility] 02/08/23 02/15/23 02/22/23 11:07 09:30 09:56 Wound [...] Attached -Granulation Amt Medium (34-66%) -Granulation Quality Latrobe -Slough/Fibrin Yes -Necrosis Amt Medium (34-66%) -Necrotic [...] Medium (34-66%) Medium (34-66%) -Granulation Quality Red Latrobe Latrobe -Slough/Fibrin Yes Yes Yes -Necrosis Amt Large (67-100%) Medium (34-66%) Medium (34-66%) -Necrotic Tissue Type Adherent Slough Adherent Slough Adherent Slough -Structure Exposed N/A N/A -Texture (Elif-wound Skin Appearance) Assessed, Assessed Assessed Scarring -Moisture (Elif-wound Skin Appearance) Assessed,Dry/ Assessed Assessed Scaly -Color (Elif-wound Skin Appearance) Assessed Assessed Assessed -Temperature (Leif-wound Skin No Abnormality No Abnormality No Abnormality [...] 02/08/23 11:30 MW Document 02/15/23 09:37 MW [id number] 02/15/23 09:45 MW Document 02/22/23 10:12 MW [id number] 02/22/23 10:24 MW 02/08/23 02/15/23 02/22/23 11:20 [...] Date 12/03/25 12/04/27 12/04/27 -Product Lot Number [id number] [id number] -Percent Used 100 100 100 -Lot number of Saline Used [id number] -Bleeding Controlled with Pressure Pressure Pressure -Treatment [...] 02/08/23 11:31 MW Document 02/15/23 09:52 RB [id number] 02/15/23 09:53 RB Document 02/22/23 10:39 MW [id number] 02/22/23 10:40 MW 02/08/23 02/15/23 02/22/23 11:30 [...] 1132 <Electronically signed by Mariela Martines NP ELECTRON MICROPROBE OPERATOR-C> Cosigner Signature (if applicable): CC: ~ Signed [facility] Work Phone: 1(923) 523-539006-21-2023 Progress note Author Mariela Martines [facility] February 22, 2023 11:34am Note Date/Time February 22, 2023 11:3 4am [facility] [address] [place] [address] Progress Note - Wound Care 02/22/23 1125 MR#: [id number] Acct: [id number] Name: MARY ALICE GA Rep #:[id number] : 1950 72 From: Mariela Martines NP ELECTRON MICROPROBE OPERATOR-C PCP: Dr. Khanh Rodriguez MD Status:R EG RCR Location: History of Present Illness Date of Service: 02/22/23 Chief Complaint: Follow-up on her right lower leg lateral area wound nonhealing since at least November. History of Wound: 72-year-old white female in [place] where she is living duringthe winter. She [...] burning arm pain and soreness been using qztk-lss-kafhyyb antibiotic ointment on it and wrapping Objective [...] Recorded Date Recorded By Document 02/08/23 11:07 [facility] [id number] 02/08/23 11:13 [facility] Document 02/15/23 09:30 [id number] 02/15/23 09:34 Document 02/22/23 09:56 [id number] 02/22/23 09:59 RB 02/08/23 02/15/23 02/22/23 11:07 09:30 09:56 - Today's Visit Information Type of service Follow-up Visit Follow-up Visit Follow-up Visit (Physician/HOME RESTORATION SERVICE SUPERVISOR (Physician/HOME RESTORATION SERVICE SUPERVISOR (Physician/HOME RESTORATION SERVICE SUPERVISOR ) ) ) Arrival Mode Ambulatory Ambulatory [...] Recorded Date Recorded By Document 02/08/23 11:07 [facility] [id number] 02/08/23 11:13 [facility] Document 02/15/23 09:30 RB [id number] 02/15/23 09:34 RB Document 02/22/23 09:56 RB [id number] 02/22/23 09:59 RB 02/08/23 02/15/23 02/22/23 11:07 [...] Attached -Granulation Amt Medium (34-66%) -Granulation Quality Latrobe -Slough/Fibrin Yes -Necrosis Amt Medium (34-66%) -Necrotic [...] Medium (34-66%) Medium (34-66%) -Granulation Quality Red [place]robe Latrobe -Slough/Fibrin Yes Yes Yes -Necrosis Amt Large [...] 02/08/23 11:30 MW Document 02/15/23 09:37 MW [id number] 02/15/23 09:45 MW Document 02/22/23 10:12 MW [id number] 02/22/23 10:24 MW 02/08/23 02/15/23 02/22/23 11:20 [...] Date 12/03/25 12/04/27 12/04/27 -Product Lot Number [id number] 023 -Percent Used 100 100 100 -Lot number of Saline Used [id number] -Bleeding Controlled with Pressure Pressure Pressure -Treatment [...] 02/08/23 11:31 MW Document 02/15/23 09:52 RB [id number] 02/15/23 09:53 RB Document 02/22/23 10:39 MW [id number] 02/22/23 10:40 MW 02/08/23 02/15/23 02/22/23 11:30 [...] 1134 <Electronically signed by Mariela Martines NP ELECTRON MICROPROBE OPERATOR-C> Cosigner Signature (if applicable): CC: ~ Signed [facility] Work Phone: 1(465) 675-203806-14-2023 Progress note Author Mariela Martines [facility] February 15, 2023 9:59am Note Date/Time February 15, 2023 9:59 am [facility] [address] [place] [address] Progress Note - Wound Care 02/15/23 0956 MR#: [id number] Acct: [id number] Name: MARY ALICE GA Rep #:[id number] : 1950 72 From: Mariela Martines NP ELECTRON MICROPROBE OPERATOR-C PCP: Dr. Khanh Rodriguez MD Status:R EG RCR Location: History of Present Illness Date of Service: 02/15/23 Chief Complaint: Follow-up on her right lower leg lateral area wound nonhealing since at least November. History of Wound: 72-year-old white female in [place] where she is living duringthe winter. She [...] Measurements and Additional Note: Post-Debridement Measurements/Treatment HERMILA - Nurse 1 - General Ulcer Assessment Start: 02/08/23 11:06 Freq: Status: Active Protocol: WC.LOWEXT Activity Type Activity Date Activity User E-sign Co-sign Detail Recorded Client Recorded Date Recorded By Document 02/08/23 11:07 [facility] [id number] 02/08/23 11:13 [facility] Document 02/15/23 09:30 RB [id number] 02/15/23 09:34 RB 02/08/23 02/15/23 11:07 09:30 - Today's Visit Information Type of service Follow-up Visit Follow-up Visit (Physician/HOME RESTORATION SERVICE SUPERVISOR (Physician/HOME RESTORATION SERVICE SUPERVISOR ) ) Arrival Mode Ambulatory Ambulatory Transfer [...] Recorded Date Recorded By Document 02/08/23 11:07 [facility] [id number] 02/08/23 11:13 [facility] Document 02/15/23 09:30 RB [id number] 02/15/23 09:34 RB 02/08/23 02/15/23 11:07 09:30 [...] Small (1-33%) Medium (34-66%) -Granulation Quality Red [place] -Slough/Fibrin Yes Yes -Necrosis Amt Large (67-100%) [...] 02/08/23 11:30 MW Document 02/15/23 09:37 MW [id number] 02/15/23 09:45 MW 02/08/23 02/15/23 11:20 09:37 [...] -Expiration Date 12/03/25 12/04/27 -Product Lot Number [id number] -Percent Used 100 100 -Lot number of Saline Used [id number] -Bleeding Controlled with Pressure Pressure -Treatment Response [...] 02/08/23 11:31 MW Document 02/15/23 09:52 RB [id number] 02/15/23 09:53 RB 02/08/23 02/15/23 11:30 09:52 Wound Care Center Nurse 3 #1- R LAT LE (P/O BASAL CELL CA) -Ulcer Cleansing Not Cleansed -Other Dressing ABD ABD pad secured with partial cut antonio wrap as directed per Ayanna Hunt -Other Covering ANTONIO wrap Right -Lotion applied [...] unspecified severity 02/15/23 0959 <Electronically signed by Mariela Martines NP ELECTRON MICROPROBE OPERATOR-C> Cosigner Signature (if applicable): CC: ~ Signed [facility] Work Phone: 1(998) 388-496506-07-2023 Progress note Author Mariela Martines [facility] February 08, 2023 11:53am Note Date/Time February 08, 2023 11:53 am [facility] [address] [place] [address] Progress Note - Wound Care 02/08/23 1149 MR#: [id number] Acct: [id number] Name: MARY ALICE GA Rep #:[id number] : 1950 72 From: Mariela Martines NP ELECTRON MICROPROBE OPERATOR-C PCP: Dr. Khanh Rodriguez MD Status:R EG RCR Location: History of Present Illness Date of Service: 02/08/23 Chief Complaint: Follow-up on her right lower leg lateral area wound nonhealing since at least November. History of Wound: 72-year-old white female in [place] where she is living duringthe winter. She [...] Recorded Date Recorded By Document 02/08/23 11:07 [facility] [id number] 02/08/23 11:13 [facility] 02/08/23 11:07 - Today's Visit Information Type of service Follow-up Visit (Physician/HOME RESTORATION SERVICE SUPERVISOR ) Arrival Mode Ambulatory Transfer Assistance None [...] Recorded Date Recorded By Document 02/08/23 11:07 [facility] [id number] 02/08/23 11:13 [facility] 02/08/23 11:07 Wound Center Nurse 1 #1- [...] Calf (cm) 34 Right Ankle (cm) 23.6 - Nurse 2 - General Ulcer CM Notes Start: 02/08/23 11:06 Freq: Status: Active Protocol: Activity Type Activity Date Activity User E-sign Co-sign Detail Recorded Client Recorded Date Recorded By Document 02/08/23 11:20 MW Desktop 02/08/23 11:30 MW 02/08/23 11:20 Wound Center Nurse 2 #1- R LAT LE (P/O BASAL CELL CA) -Time 11:20 -Correct [...] Mesh -Expiration Date 12/03/25 -Product Lot Number [id number] -Percent Used 100 -Lot number of Saline Used [id number] -Bleeding Controlled with Pressure -Treatment Response Procedure [...] 11:30 Wound Care Center Nurse 3 #1- R [...] 1153 <Electronically signed by Mariela Martines NP ELECTRON MICROPROBE OPERATOR-C> Cosigner Signature (if applicable): CC: ~ Signed [facility] Work Phone: 1(870) 959-424205-31-2023 Progress note Author Mariela Martines [facility] February 01, 2023 12:26pm Note Date/Time February 01, 2023 12:26 pm [facility] [address] [place] [id number] Progress Note - Wound Care 02/01/23 1222 MR#: [id number] Acct: [id number] Name: MARY ALICE GA Rep #:[id number] : 1950 72 From: Mariela Martines NP ELECTRON MICROPROBE OPERATOR-C PCP: Dr. Khanh Rodriguez MD Status:R EG RCR Location: History of Present Illness Date of Service: 02/01/23 Chief Complaint: Follow-up on her right lower leg lateral area wound nonhealing since at least November. History of Wound: 72-year-old white female in [place] where she is living duringthe winter. She [...] Recorded Date Recorded By Document 01/25/23 09:15 [facility] [id number] 01/25/23 09:39 [facility] Document 02/01/23 11:13 [facility] [id number] 02/01/23 11:20 [facility] 01/25/23 02/01/23 09:15 11:13 - Today's Visit Information Type of service Initial Visit Follow-up Visit (Physician/HOME RESTORATION SERVICE SUPERVISOR ) Arrival Mode Ambulatory,Cane Ambulatory Transfer Assistance [...] Bottom <Entered> (a) Communication Assessment Preferred language American Paster Operator Required No Able to Read Yes Able [...] in Ability to Perform Denies Any Declines Culture/Buddhism/Supervisor/Port Director Cultural/Buddhism Needs that may affect No Treatment Plan Teaching: Wound Center *Welcome to the Wound Center -Person Taught Patient -Teaching Method Discussion -Response to teaching Verbalize understanding Welcome to the Wound Care Center Panamanian (a) 1 - + WC - Nurse 1 - General Ulcer Measurement Start: 01/25/23 09:11 Freq: Status: Active Protocol: Activity Type Activity Date Activity User E-sign Co-sign Detail Recorded Client Recorded Date Recorded By Document 01/25/23 09:15 [facility] [id number] 01/25/23 09:39 BM Document 02/01/23 11:13 [facility] [id number] 02/01/23 11:20 BMF 01/25/23 02/01/23 09:15 11:13 Wound Center Nurse [...] Date Recorded By Document 01/25/23 09:55 MW [id number] 01/25/23 10:02 MW Document 02/01/23 11:28 MW [id number] 02/01/23 11:32 MW 01/25/23 02/01/23 09:55 11:28 Wound Center Nurse 2 #1- R VICENTA JAMESON (P/O BASAL CELL CA) -Time 09:56 11:30 [...] Is Patient Pain Free? Yes Yes HERMILA - Nurse 3 - General Ulcer D/C NN Start: 01/25/23 09:11 Freq: Status: Active Protocol: Activity Type Activity Date Activity User E-sign Co-sign Detail Recorded Client Recorded Date Recorded By Document 01/25/23 10:42 RB [id number] 01/25/23 10:43 RB Document 02/01/23 11:32 MW [id number] 02/01/23 11:38 MW 01/25/23 02/01/23 10:42 11:32 [...] 1226 <Electronically signed by Mariela Martines NP ELECTRON MICROPROBE OPERATOR-C> Cosigner Signature (if applicable): CC: ~ Signed [facility] Work Phone: 1(132) 114-940605-24-2023 History and physical note Author Mariela Martines [facility] January 25, 2023 12:44pm Note Date/Time January 25, 2023 12:44 pm [facility] [address] [place] [address] H&P Exam - Wound Care 01/25/23 1234 MR#: [id number] Acct: [id number] Name: MARY ALICE GA Rep #:[id number] : 1950 72 From: Mariela Martines NP ELECTRON MICROPROBE OPERATOR-C PCP: Dr. Khanh Rodriguez MD Status:R EG RCR Location: History of Present Illness Date of Service: 01/25/23 Chief Complaint: Follow-up on her right lower leg lateral area wound nonhealing since at least November. History of Wound: 72-year-old white female in [place] where she is living duringthe winter. She [...] Allergy Mild Other Verified 01/25/23 09:43 [From [facility]] Family History Mother Heart disease Father Heart [...] Recorded Date Recorded By Document 01/25/23 09:15 [facility] [id number] 01/25/23 09:39 [facility] 01/25/23 09:15 - Today's Visit Information Type [...] Bottom <Entered> (a) Communication Assessment Preferred language American Paster Operator Required No Able to Read Yes Able [...] in Ability to Perform Denies Any Declines Culture/Buddhism/Supervisor/Port Director Cultural/Buddhism Needs that may affect No Treatment Plan Teaching: Wound Center *Welcome to the Wound Center -Person Taught Patient -Teaching Method Discussion -Response to teaching Verbalize understanding Welcome to the Wound Care Center Panamanian (a) 1 - + WC - Nurse 1 - General Ulcer Measurement Start: 01/25/23 09:11 Freq: Status: Active Protocol: Activity Type Activity Date Activity User E-sign Co-sign Detail Recorded Client Recorded Date Recorded By Document 01/25/23 09:15 [facility] [id number] 01/25/23 09:39 [facility] 01/25/23 09:15 Wound Center Nurse 1 #1- [...] Date Recorded By Document 01/25/23 09:55 MW [id number] 01/25/23 10:02 MW 01/25/23 09:55 Wound Center Nurse 2 #1- R LAT LE (P/O BASAL CELL CA) -Time 09:56 -Correct [...] Date Recorded By Document 01/25/23 10:42 RB [id number] 01/25/23 10:43 RB 01/25/23 10:42 Wound Care [...] 01/25/23 1244 <Electronically signed by Mariela Martines NP, NP-C> Cosigner Signature (if applicable): CC: ~ Signed [facility] Work Phone: 1(131) 571-917209-07-2021 History of Present illness Narrative* Encounter Date [...] are heavy and painful.Has vascular clinic in [place] she would like to be referred to [...] notes she is going to go to [place] for this; just had surgery at the [facility]2. Hypertension stable; continue current medications3.Hypokalemia pt is [...] mobility. Pertinent negatives include bruising and crepitus. [facility] Work Phone: 1(978) [phone] Instructions* Date Instruction Additional Infor alvin Counseled on weight reduction Counseled on dietary changes [facility] Work Phone: consult note* Clinical Note Date No Information [facility] Work Phone: Discharge summary* Clinical Note Date No Information [facility] Work Phone: Discharge summary Author Harrison Roper [facility] December 30, 2023 1:45pm Note Date/Time December 30, 2023 1:3 0pm [facility] Medical Records Department [address] [place] [address] Discharge Summary 12/30/23 1330 MR#: [id number] Acct: [id number] Name: MARY ALICE GA Rep #:[id number] : 1950 73 From: Harirson Hughes PCP: Dr. Khanh Rodriguez MD Status:A DM IN Location: [place] [address]- Providers Date of Admission: 12/27/23 Date of Discharge: 12/30/23 Primary Care Physician: Dr. 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 On alendronate continued Discharge medication reconciliation done. [...] or advanced directive. Her is power of trademark attorney for health. After discussion of benefits/risks procedures [...] esophageal varices bleed, decompensated cirrhosis Attending Provider: Harriosn Roper Primary Care Provider: Khanh Rodriguez Discharge [...] Health Service Charges/Coding Visit Charges Inpatient E&M: 75459 Disch Hosp >30min 12/30/23 1345 <Electronically signed by Harrison Roper MD> Cosigner Signature (if applicable): CC: Dr. Khanh Rodriguez MD; Dr. 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 Vertigo chronic [facility] Work Phone: Evaluation note* Diagnosis Onset Date Resolution Status Age-related physical debility acute Hypotension acute Post-menopausal acute GERD (gastroesophageal reflux disease) chronic Left hip pain chronic 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 Vertigo chronic Hyponatremia acute Osteoporosis acute [facility] Work Phone: Evaluation note* Diagnosis Onset Date Resolution Status Age-related physical debility acute Hypotension acute Post-menopausal acute GERD (gastroesophageal reflux disease) chronic Left hip pain chronic 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 Vertigo chronic Hyponatremia acute Osteoporosis acute Hyponatremia acute Osteoporosis acute Dermatitis chronic GERD (gastroesophageal reflux disease) chronic Hypertension chronic [facility] Work Phone: Evaluation note* Diagnosis Pain- Primary [facility]ized [facility] Diagnosis Onset Date Resolution Status Cellulitis of right leg acut e Screening for thyroid disorder acute Ulcer of right leg acute Dermatitis chronic Hypertension chronic Osteoporosis chronic Edema of both lower extremities acute Ulcer of right leg acute 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 [facility] Work Phone: Evaluation note* Diagnosis Onset Date [...] 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 [facility] Work Phone: Evaluation note* Diagnosis Onset Date [...] 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 [facility] Work Phone: Evaluation note* Diagnosis Onset Date [...] 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 [facility] Work Phone: Evaluation note* Diagnosis Onset Date [...] skin cancer ch ronic Umbilical hernia chronic [facility] Work Phone: Evaluation note* Diagnosis Onset Date [...] acute Edema of both lower extremities chronic [facility] Work Phone: Evaluation note* Diagnosis Onset Date [...] ronic Umbilical hernia chronic Back pain noneactive [facility] Work Phone: Evaluation note* Diagnosis Onset Date [...] lower extremities chronic Preoperative evaluation to r [facility] out surgical contraindication acute Edema of both [...] ronic Umbilical hernia chronic Back pain noneactive [facility] Work Phone: Evaluation note* Diagnosis Onset Date [...] acut e Cirrhosis acute Umbilical hernia chronic [facility] Work Phone: Evaluation note* Diagnosis Onset Date [...] leg acute Venous ulcer of ankle acute [facility] Work Phone: Evaluation note* Diagnosis Onset Date [...] lower extremity 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 [facility] Work Phone: Evaluation note* Diagnosis Onset Date [...] leg acute Venous ulcer of ankle acute [facility] Work Phone: Evaluation note* Diagnosis Onset Date [...] lower extremity 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 [facility] Work Phone: Evaluation note* Diagnosis Onset Date [...] Venous insufficiency of right lower extremity acute [facility] Work Phone: Evaluation note* Diagnosis Onset Date [...] lower extremity 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 [facility] Work Phone: Evaluation note* Diagnosis Onset Date [...] Venous insufficiency of right lower extremity chronic [facility] Work Phone: Evaluation note* Diagnosis Onset Date [...] Venous insufficiency of right lower extremity chronic [facility] Work Phone: Evaluation note* Diagnosis Onset Date [...] lower extremity chronic Alcoholic acute Diarrhea acute [facility] Work Phone: Evaluation note* Diagnosis Onset Date [...] Venous insufficiency of right lower extremity chronic [facility] Work Phone: Evaluation note* Diagnosis Onset Date [...] hepatic cirrhosis acute Jaundice acute Thrombocytopenia acute [facility] Work Phone: Evaluation note* Diagnosis Onset Date [...] hepatic cirrhosis acute Jaundice acute Thrombocytopenia acute [facility] Work Phone: Evaluation note* Diagnosis Onset Date [...] chronic Acute upper GI bleeding reso lved [facility] Work Phone: Evaluation note* Diagnosis Other malaise- [facility] Diagnosis Other malaise- [facility] Diagnosis Other malaise- Primary [facility] Diagnosis Other malaise- Primary [facility] Diagnosis Other malaise- Primary [facility] Diagnosis Venous ulcer (HCC) Chronic ulcer of unspecified site Venous (peripheral) insufficiency Unspecified venous (peripheral) insufficiency Secondary lymphedema Other lymphedema [facility] Diagnosis Venous ulcer (HCC)- Primary Chronic ulcer of unspecified site Venous (peripheral) insufficiency Unspecified venous (peripheral) insufficiency Secondary lymphedema Other lymphedema [facility] Diagnosis Other malaise- Primary [facility] Diagnosis Venous ulcer (HCC)- Primary Chronic ulcer of unspecified site Venous (peripheral) insufficiency Unspecified venous (peripheral) insufficiency Secondary lymphedema Other lymphedema [facility] Diagnosis Other malaise- Primary [facility] Diagnosis Other malaise- Primary [facility] Diagnosis Venous ulcer (HCC)- Primary Chronic ulcer of unspecified site Venous (peripheral) insufficiency Unspecified venous (peripheral) insufficiency Secondary lymphedema Other lymphedema Symptomatic varicose veins of both lower extremities Varicose veins of lower extremities with other complications [facility] Diagnosis Venous ulcer (HCC)- Primary Chronic ulcer of unspecified site Venous (peripheral) insufficiency Unspecified venous (peripheral) insufficiency Secondary lymphedema Other lymphedema documented in this encounter 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 Degenerative scoliosis [facility] Diagnosis Venous ulcer (HCC)- Primary Chronic ulcer of unspecified site Venous (peripheral) insufficiency Unspecified venous (peripheral) insufficiency Secondary lymphedema Other lymphedema [facility] Diagnosis Other malaise- Primary [facility] Diagnosis Venous ulcer (HCC)- Primary Chronic ulcer of unspecified site Venous (peripheral) insufficiency Unspecified venous (peripheral) insufficiency Secondary lymphedema Other lymphedema [facility] Diagnosis Other malaise- Primary [facility] Diagnosis Venous ulcer (HCC)- Primary Chronic ulcer of unspecified site Venous (peripheral) insufficiency Unspecified venous (peripheral) insufficiency Secondary lymphedema Other lymphedema [facility] Diagnosis Venous ulcer (HCC)- Primary Chronic ulcer of unspecified site Venous (peripheral) insufficiency Unspecified venous (peripheral) insufficiency Secondary lymphedema Other [facility]ymphedema [facility] Diagnosis Pain in left hip Pain in joint, pelvic region and thigh [facility] Diagnosis Venous (peripheral) insufficiency Unspecified venous (peripheral) insufficiency Symptomatic varicose veins of both lower extremities Varicose veins of lower extremities with other complications [facility] Diagnosis Venous ulcer (HCC)- Primary Chronic ulcer of unspecified site Venous (peripheral) insufficiency Unspecified venous (peripheral) insufficiency [facility] Diagnosis Venous ulcer (HCC)- Primary Chronic ulcer of unspecified site Venous (peripheral) insufficiency Unspecified venous (peripheral) insufficiency Secondary lymphedema Other lymphedema [facility] Diagnosis Venous ulcer (HCC)- Primary Chronic ulcer of unspecified site Venous (peripheral) insufficiency Unspecified venous (peripheral) insufficiency Secondary lymphedema Other lymphedema [facility] Diagnosis Degenerative scoliosis- Primary [facility] Diagnosis Venous ulcer (HCC)- Primary Chronic ulcer of unspecified site Venous (peripheral) insufficiency Unspecified venous (peripheral) insufficiency Secondary lymphedema Other lymphedema documented in this encounter [facility] note* Diagnosis Venous ulcer (HCC)- Primary Chronic ulcer of unspecified site Venous (peripheral) insufficiency Unspecified venous (peripheral) insufficiency Secondary lymphedema Other lymphedema documented in this encounter [facility] note* Diagnosis Venous ulcer (HCC)- Primary Chronic ulcer of unspecified site Venous (peripheral) insufficiency Unspecified venous (peripheral) insufficiency Secondary lymphedema Other lymphedema [facility] Diagnosis Venous ulcer (HCC)- Primary Chronic ulcer of unspecified site Venous (peripheral) insufficiency Unspecified venous (peripheral) insufficiency Secondary lymphedema Other lymphedema [facility] Diagnosis Venous ulcer (HCC)- Primary Chronic ulcer of unspecified site [facility] Diagnosis Venous ulcer (HCC)- Primary Chronic ulcer of unspecified site documented in this encounter [facility] note* Diagnosis Venous ulcer of right lower extremity with varicose veins (HCC)- Primary Varicose veins of lower extremities with ulcer Venous ulcer (HCC) Chronic ulcer of unspecified site [facility] Diagnosis Venous ulcer (HCC)- Primary Chronic ulcer of unspecified site [facility] Diagnosis Venous ulcer (HCC)- Primary Chronic ulcer of unspecified site [facility] Diagnosis Pseudomonas aeruginosa infection- Primary Pseudomonas infection in conditions classified elsewhere and of unspecified site Venous ulcer (HCC) Chronic ulcer of unspecified site Alcoholic cirrhosis of liver with ascites (HCC) Alcoholic cirrhosis of liver Anxiety Anxiety state, unspecified Infection Unspecified infectious and parasitic diseases documented in this encounter [facility] note* Diagnosis Venous ulcer (HCC)- Primary Chronic ulcer of unspecified site [facility] Diagnosis Abrasion of left lower leg with infection, initial encounter- Primary [facility] Diagnosis Venous ulcer (HCC)- Primary Chronic ulcer of unspecified site documented in this encounter [facility] note* Diagnosis Venous ulcer (HCC)- Primary Chronic ulcer of unspecified site [facility] Diagnosis Pseudomonas aeruginosa infection- Primary Pseudomonas infection in conditions classified elsewhere and of unspecified site Venous ulcer (HCC) Chronic ulcer of unspecified site Alcoholic cirrhosis of liver with ascites (HCC) Alcoholic cirrhosis of liver Anxiety Anxiety state, unspecified Umbilical hernia without obstruction or gangrene Umbilical hernia without mention of obstruction or gangrene [facility] Diagnosis Venous ulcer (HCC)- Primary Chronic ulcer of unspecified site [facility] Diagnosis Venous ulcer (HCC)- Primary Chronic ulcer of unspecified site documented [facility]* Diagnosis Venous ulcer (HCC)- Primary Chronic ulcer of unspecified site documented [facility]* Diagnosis Spinal stenosis of lumbar region with neurogenic claudication- Primary Spinal stenosis, lumbar region, with neurogenic claudication Low back pain, unspecified back pain laterality, unspecified chronicity, unspecified whether sciatica present [facility]* Diagnosis Venous ulcer (HCC)- Primary Chronic ulcer of unspecified site [facility]* Diagnosis Venous stasis ulcer of calf with fat layer exposed, unspecified laterality, unspecified whether varicose veins present (HCC)- Primary Venous ulcer (HCC) Chronic ulcer of unspecified site [facility] Clinical Note Date No Information [facility] Work Phone: History and physical note Author Harrison Roper [facility] December 27, 2023 1:37pm Note Date/Time December 27, 2023 1:3 1pm [facility] Medical Records Department [address] [place] [address] H&P Exam - Hospitalist 12/27/23 1317 MR#: [id number] Acct: [id number] Name: MARY ALICE GA Rep #:[id number] : 1950 73 From: Harrison Hughes PCP: Dr. Khanh Rodriguez MD Status:A DM IN Location: [address] 1 HPI - General General Date of [...] or pattern drinking alcohol even on asking. [facility] Medical History Abnormal mammogram of left breast [...] Sl. Cloudy, Urine pH 7.0, Ur Specific [place] 1.005, Urine Protein 15 H, Urine Glucose [...] (Auto) 73.0 H, Lymph % (Auto) 19.2, Lawrence % (Auto) 6.7, Eos % (Auto) 0.4, [...] of breast cancer: Patient on anastrozole.Patient follows [facility]. On alendronate continued Living will/advanced directive/end of life care: Patient does not living will or advanced directive. Her is power of trademark attorney for health. After discussion of benefits/risks procedures involved with full code, DNR CC arrest and DNR CC, the patient opted for full code. Patient does want artificial life support including intubation, tube feed, ventilator and/chest compression, central venous catheter, vasopressor and DC shock if needed Total time spent in [id number] encounter in discussion of advanced directive 17 minutes. Microbiology Past 72 Hours 12/27/23 09:39 Stool Stool Occult Blood (KENDRA) - Final Occult Blood Positive Laboratory Results 12/27/23 09:25: Urine Color Yellow, Urine Clarity Sl. Cloudy, Urine pH 7.0, Ur Specific [place] 1.005, Urine Protein 15 H, Urine Glucose [...] (Auto) 73.0 H, Lymph % (Auto) 19.2, Lawrence % (Auto) 6.7, Eos % (Auto) 0.4, [...] containing fat. Charges/Coding Visit Charges Inpatient E&M: 26219 Init Hosp L3 Procedures Hospitalists Procedures: 09563 Advncd Care Plan 30 Min 12/27/23 1337 <Electronically signed by Harrison Roper MD> Cosigner Signature (if applicable): CC: Dr. Khanh Rodriguez MD; Dr. Harrison Roper MD~ Signed [facility] Work Phone: Hospital Discharge instructionsAmbulatory Orders* Gastroenterology Location: None Selected [facility] Work Phone: Hospital Discharge instructionsAmbulatory Orders* Orthopedics Location: None Selected * Pain Management Location: None Selected [facility] Work Phone: Progress note* Clinical Note Date No Information [facility] Work Phone: [facility] for referral (narrative)* Reason For Referral No Information [facility] Work Phone: Resnoy for referral (narrative)* Diagnostic Procedure Only (Routine) - Authorized Specialty Diagnoses / Procedures Referred By Contac t Referred To Contact XR IMAGING Diagnoses Pain Procedures XR HIP GENERAL 3V PELV/AP/LAT LEFT RADEX HIP UNILATERAL WITH PELVIS 2-3 VIEWS Yoseph Briones MD [address] [place] [address] Xr Imaging Referral ID Status Reason Start Date Expiration Date Visits Requested Visits Authorized [id number] Authorized Auto-Generat ed Referral 10/18/2022 11/17/2023 1 1 [facility] for referral (narrative)* Outpatient Procedure (Routine) - Authorized Specialty Diagnoses / Procedures [facility] Diagnoses Venous (peripheral) insufficiency Symptomatic varicose veins of both lower extremities Procedures US VENOUS INCOMPETENCY [facility] DUP-SCAN XTR VEINS COMPLETE BILATERAL STUDY Gt Yin DO [address] [place] [address] [facility] [address] [address] Referral ID Status Reason Start Date Expiration Date Visits Requested Visits Authorized [id number] Authorized Auto-Generat ed Referral 02/27/2024 02/26/2025 1 1 * Physical Therapy (Routine) - Authorized Specialty Diagnoses / Procedures Referred By Contac t Referred To Contact [facility] Diagnoses Venous ulcer (HCC) Venous (peripheral) insufficiency Secondary lymphedema Procedures CONSULT TO PHYSICAL THERAPY PHYSICAL THERAPY EVALUATION HIGH COMPLEX 45 MINS Gt Yin DO [address] [place] [address] [facility] [place] [address] [place] [id number] Referral ID Status Reason Start Date Expiration Date Visits Requested Visits Authorized [id number] Authorized PCP Requested Referral Auto-Generate d Referral 02/27/2024 02/26/2025 99 99 [facility] for referral (narrative)* Diagnostic Procedure Only (Routine) - Closed Specialty Diagnoses / Procedures Referred By Contac t Referred To Contact XR IMAGING Diagnoses Pain in left hip Procedures XR HIP 2V AP/LAT LEFT (AK,FL,ME,UN) RADEX HIP UNILATERAL WITH PELVIS 2-3 VIEWS Abdirahman Wright APRN.HOME RESTORATION SERVICE SUPERVISOR [address] [place] [address] [place] [address] Referral ID Status Reason Start Date Expiration Date V isits Requested Visits Authorized [id number] Closed Auto-Generate d Referral 03/13/2024 04/12/2025 1 1 [facility] for visit Narrative* Diagnostic Procedure Only (Routine) - Closed Specialty Diagnoses / Procedures Referred By Contac t Referred To Contact XR IMAGING Diagnoses Pain in left hip Procedures XR HIP 2V AP/LAT LEFT (AK,FL,ME,UN) RADEX HIP UNILATERAL WITH PELVIS 2-3 VIEWS Abdirahman Wright APRN.HOME RESTORATION SERVICE SUPERVISOR [address] [place] [address] [place] [address] Referral ID Status Reason Start Date Expiration Date V isits Requested Visits Authorized [id number] Closed Auto-Generate d Referral 03/13/2024 04/12/2025 1 1 [facility] for visit Narrative* Outpatient Procedure (Routine) - Closed Specialty Diagnoses / Procedures Referred By Contac t Referred To Contact [facility] Diagnoses Venous (peripheral) insufficiency Symptomatic varicose veins of both lower extremities Procedures US VENOUS INCOMPETENCY [facility] DUP-SCAN XTR VEINS COMPLETE BILATERAL STUDY Gt Yin, DO [address] [place] [address] [facility] [place] [address] [place] [address] Referral ID Status Reason Start Date Expiration Date V isits Requested Visits Authorized [id number] Closed Auto-Generate d Referral 02/27/2024 02/26/2025 1 1 [facility] Summary Purpose Family History Family Member Type [...] Documents on File Type Date Recorded Patient English As A Second Language Instructor Expl anation Advance Directives and Living Will Power of Car Park Attendant Directive Yes / No Effective Date File Name No Information Advance Directive Response Recorded Date/ Time Living Will No June 09 1 12:10pm Power of Car Park Attendant No June 09 021 12:10pm Advance Directive Response Recorded Date/ Time Living Will No January 20, 2023 1 0:41am Power of Car Park Attendant No January 20, 2023 10:41am Advance Directive Response Recorded Date/ Time Name of Medical Power of Car Park Attendant RANJIT GARCIA PRACHI June 12, 2023 2:18pm Living Will Yes June 12 3 2:18pm Power of Car Park Attendant Yes October 9th, 2 023 2:18pm Advance Directive Response Recorded Date/ Time Name of Medical Power of Car Park Attendant RANJIT VELARDE June 12, 2023 1:18pm Living Will Yes June 12 1:18pm Power of Car Park Attendant Yes June 12 023 1:18pm Advance Directive Response Recorded Date/ Time Living Will Yes June 12 1:18pm Power of Car Park Attendant Yes June 12 2 023 1:18pm Advance Directive Response Recorded Date/ Time Advance Directives No October 8:24am Living Will No October 25, 024 8:24am Power of Car Park Attendant No October 25, 2023 8:24am Advance Directive Response Recorded Date/ Time Advance Directives on File Yes Neil leigh 2023 11:20am Name of Medical Power of Car Park Attendant ranjit rizvi October 26, 2023 11:20am Advance Directives Yes October 11:20am Living Will Yes October 26 11:20am Power of Car Park Attendant Yes October 26, 2023 11:20am Advance Directive Response Recorded Date/ Time Advance Directives on File Yes Neil leigh 2023 12:20pm Name of Medical Power of Car Park Attendant ranjit rizvi October 26, 2023 12:20pm Advance Directives Yes October 12:20pm Living Will Yes October 26 12:20pm Power of Car Park Attendant Yes October 26, 2023 12:20pm Advance Directive Response Recorded Date/ Time Advance Directives on File Yes Neil leigh 2023 12:20pm Name of Medical Power of Car Park Attendant ranjit rizvi October 26, 2023 12:20pm Advance Directives Yes October 12:20pm Living Will No December 27, 2023 10:17am Power of Car Park Attendant No December 26 10:17am Advance Directive Response Recorded Date/ Time Advance Directives on File Yes Neil leigh 2023 12:20pm Name of Medical Power of Car Park Attendant ranjit rizvi October 26, 2023 12:20pm Name of Medical Power of Car Park Attendant Ranjit Ga December 27, 2023 2:18pm Advance Directives Yes October 12:20pm Living Will Yes December 27, 2023 2:18pm Power of Car Park Attendant Yes December 26 2:18pm Advance Directive Response Recorded Date/ Time Advance Directives Yes December 31, 2 024 3:20pm Living Will Yes January 01, 2024 3:20pm Power of Car Park Attendant Yes December 31 3:20pm Advance Directives on File Yes Neil leigh 2023 12:20pm Name of Medical Power of Car Park Attendant ranjit rizvi October 26, 2023 12:20pm Name of Medical Power of Car Park Attendant Ranjit Ga December 27, 2023 2:18pm Advance Directive Response Recorded Date/ Time Advance Directives Yes December 31, 024 3:20pm Advance Directive Response Recorded Date/ Time Living Will No May 15, 2024 2:03pm Do you have a Healthcare Power of Car Park Attendant? No May 15, 2024 2:03pm Living Will Yes January 01, 2024 3:20pm Do you have a Healthcare Power of Car Park Attendant? Yes January 01, 2024 3:20pm Advance Directives Yes January 23 3:15pm Advance Directive Response Recorded Date/ Time Living Will No May 15, 2024 2:03pm Do you have a Healthcare Power of Car Park Attendant? No May 15, 2024 2:03pm Living Will Yes January 01, 2024 3:20pm Do you have a Healthcare Power of Car Park Attendant? Yes January 01, 2024 3:20pm Advance Directives [...] Chief Complaint Admit Date ACUTE-MED DISCUSSION/REFILLS January 22, 025 11:42am Chief Complaint WOUND CONSULT-VENOUS INSUFFICIENCY & PAD WOUND WOUND WOUND WOUND Pain in right leg Non-pressure chronic ulcer of unspecified part of WOUND SAPHINOUS VAIN SAPHINOUS VAIN WOUND WOUND POST OP F/U POST OP chk up DYSPNEA WOUND ACUTE DIARRHEA [id number] WOUND WOUND WOUND UPPER GI BLEED UPPER [...] OP chk up DYSPNEA WOUND ACUTE DIARRHEA [id number] WOUND WOUND WOUND UPPER GI BLEED UPPER [...] OP chk up DYSPNEA WOUND ACUTE DIARRHEA [id number] WOUND WOUND WOUND Reason for Visit Non-pressure [...] chk up DYSPNEA WOUND WOUND ACUTE DIARRHEA [id number] Reason for Visit Breast cancer Breast cancer [...] veins of both lower extremities 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 Reason for Visit Age-related physical debility Hypotension Post-menopausal GERD (gastroesophageal reflux disease) Left hip pain Varicose veins of both lower extremities Vertigo Reason for Referral Specialty Diagnoses / Procedures Referred By Tara bravo Referred To [facility] [place] Diagnoses Degenerative scoliosis Procedures [facility]SULT [facility] OFFICE/OUTPATIENT [facility] 60 MINUTES Marisela Mccarty MD [address] [address] Referral ID Status Reason Start Date Expiration Date Visits Requested Visits Authorized [id number] Authorized PCP Requested Referral 04/02/2024 04/02/2025 1 1 Specialty Diagnoses / Procedures Referred By Contac t Referred To Contact [facility] Diagnoses Degenerative scoliosis Procedures CONSULT TO PHYSICAL THERAPY PHYSICAL THERAPY EVALUATION HIGH COMPLEX 45 MINS Monse Merlos PA-C [address] [place] [address] [facility] [place] [address] [place] [address] Referral ID Status Reason Start Date Expiration Date Visits Requested Visits Authorized [id number] Authorized PCP Requested Referral Auto-Generate d Referral 06/12/2024 06/12/2025 99 99 Additional Source Comments INFORMATION SOURCE (unrecogn ized section and content) DATE CREATED AUTHOR 02/27/2018 [facility] DATE CREATED AUTHOR AUTHOR'S ORGANIZ ATION 07/09/2019 [facility] DATE CREATED AUTHOR AUTHOR'S ORGANIZ ATION 09/20/2019 [facility] DATE CREATED AUTHOR AUTHOR'S ORGANIZ ATION 02/13/2020 [facility] DATE CREATED AUTHOR AUTHOR'S ORGANIZ ATION 05/06/2021 [facility] DATE CREATED AUTHOR AUTHOR'S ORGANIZ ATION 05/16/2024 [facility] DATE CREATED AUTHOR AUTHOR'S ORGANIZ ATION 09/21/2024 [facility] DATE CREATED AUTHOR AUTHOR'S ORGANIZ ATION 05/28/2025 [facility] DATE CREATED AUTHOR AUTHOR'S ORGANIZ ATION 06/06/2025 [facility] Goals (unrecognized section and content) Goals may be documented in a n alternate section Source Comments (unrecognize d section and content) In the event this informatio n is protected by the Federal Confidentiality of Alcohol and Drug Abuse Patient Records regulations: The Federal rules restrict any use of the information to criminally investigate or prosecute any alcohol or drug abuse patient.[facility] the event this information is protected by the Federal Confidentiality of Alcohol and Drug Abuse Patient Records regulations: The Federal rules restrict any use of the information to criminally investigate or prosecute any alcohol or drug abuse patient.[facility] the event this information is protected by the Federal Confidentiality of Alcohol and Drug Abuse Patient Records regulations: The Federal rules restrict any use of the information to criminally investigate or prosecute any alcohol or drug abuse patient.[facility] the event this information is protected by the Federal Confidentiality of Alcohol and Drug Abuse Patient Records regulations: The Federal rules restrict any use of the information to criminally investigate or prosecute any alcohol or drug abuse patient.[facility] the event this information is protected by the Federal Confidentiality of Alcohol and Drug Abuse Patient Records regulations: The Federal rules restrict any use of the information to criminally investigate or prosecute any alcohol or drug abuse patient.[facility] the event this information is protected by the Federal Confidentiality of Alcohol and Drug Abuse Patient Records regulations: The Federal rules restrict any use of the information to criminally investigate or prosecute any alcohol or drug abuse patient.[facility] the event this information is protected by the Federal Confidentiality of Alcohol and Drug Abuse Patient Records regulations: The Federal rules restrict any use of the information to criminally investigate or prosecute any alcohol or drug abuse patient.[facility] the event this information is protected by the Federal Confidentiality of Alcohol and Drug Abuse Patient Records regulations: The Federal rules restrict any use of the information to criminally investigate or prosecute any alcohol or drug abuse patient.[facility] the event this information is protected by the Federal Confidentiality of Alcohol and Drug Abuse Patient Records regulations: The Federal rules restrict any use of the information to criminally investigate or prosecute any alcohol or drug abuse patient.[facility] the event this information is protected by the Federal Confidentiality of Alcohol and Drug Abuse Patient Records regulations: The Federal rules restrict any use of the information to criminally investigate or prosecute any alcohol or drug abuse patient.[facility] the event this information is protected by the Federal Confidentiality of Alcohol and Drug Abuse Patient Records regulations: The Federal rules restrict any use of the information to criminally investigate or prosecute any alcohol or drug abuse patient.[facility] System[facility] the event this information is protected by the Federal Confidentiality of Alcohol and Drug Abuse Patient Records regulations: The Federal rules restrict any use of the information to criminally investigate or prosecute any alcohol or drug abuse patient.[facility] the event this information is protected by the Federal Confidentiality of Alcohol and Drug Abuse Patient Records regulations: The Federal rules restrict any use of the information to criminally investigate or prosecute any alcohol or drug abuse patient.[facility] System[facility] the event this information is protected by the Federal Confidentiality of Alcohol and Drug Abuse Patient Records regulations: The Federal rules restrict any use of the information to criminally investigate or prosecute any alcohol or drug abuse patient.[facility] System[facility] the event this information is protected by the Federal Confidentiality of Alcohol and Drug Abuse Patient Records regulations: The Federal rules restrict any use of the information to criminally investigate or prosecute any alcohol or drug abuse patient.[facility] the event this information is protected by the Federal Confidentiality of Alcohol and Drug Abuse Patient Records regulations: The Federal rules restrict any use of the information to criminally investigate or prosecute any alcohol or drug abuse patient.[facility] System[facility] the event this information is protected by the Federal Confidentiality of Alcohol and Drug Abuse Patient Records regulations: The Federal rules restrict any use of the information to criminally investigate or prosecute any alcohol or drug abuse patient.[facility] System[facility] the event this information is protected by the Federal Confidentiality of Alcohol and Drug Abuse Patient Records regulations: The Federal rules restrict any use of the information to criminally investigate or prosecute any alcohol or drug abuse patient.[facility] System[facility] the event this information is protected by the Federal Confidentiality of Alcohol and Drug Abuse Patient Records regulations: The Federal rules restrict any use of the information to criminally investigate or prosecute any alcohol or drug abuse patient.[facility] System[facility] the event this information is protected by the Federal Confidentiality of Alcohol and Drug Abuse Patient Records regulations: The Federal rules restrict any use of the information to criminally investigate or prosecute any alcohol or drug abuse patient.[facility] System[facility] the event this information is protected by the Federal Confidentiality of Alcohol and Drug Abuse Patient Records regulations: The Federal rules restrict any use of the information to criminally investigate or prosecute any alcohol or drug abuse patient.[facility] the event this information is protected by the Federal Confidentiality of Alcohol and Drug Abuse Patient Records regulations: The Federal rules restrict any use of the information to criminally investigate or prosecute any alcohol or drug abuse patient.[facility] the event this information is protected by the Federal Confidentiality of Alcohol and Drug Abuse Patient Records regulations: The Federal rules restrict any use of the information to criminally investigate or prosecute any alcohol or drug abuse patient.[facility] the event this information is protected by the Federal Confidentiality of Alcohol and Drug Abuse Patient Records regulations: The Federal rules restrict any use of the information to criminally investigate or prosecute any alcohol or drug abuse patient.[facility] System[facility] the event this information is protected by the Federal Confidentiality of Alcohol and Drug Abuse Patient Records regulations: The Federal rules restrict any use of the information to criminally investigate or prosecute any alcohol or drug abuse patient.[facility] System[facility] the event this information is protected by the Federal Confidentiality of Alcohol and Drug Abuse Patient Records regulations: The Federal rules restrict any use of the information to criminally investigate or prosecute any alcohol or drug abuse patient.[facility] the event this information is protected by the Federal Confidentiality of Alcohol and Drug Abuse Patient Records regulations: The Federal rules restrict any use of the information to criminally investigate or prosecute any alcohol or drug abuse patient.[facility] System[facility] the event this information is protected by the Federal Confidentiality of Alcohol and Drug Abuse Patient Records regulations: The Federal rules restrict any use of the information to criminally investigate or prosecute any alcohol or drug abuse patient.[facility] SystemIn the event this information is protected by the Federal Confidentiality of Alcohol and Drug Abuse Patient Records regulations: The Federal rules restrict any use of the information to criminally investigate or prosecute any alcohol or drug abuse patient.[facility] System[facility] the event this information is protected by the Federal Confidentiality of Alcohol and Drug Abuse Patient Records regulations: The Federal rules restrict any use of the information to criminally investigate or prosecute any alcohol or drug abuse patient.[facility] SystemIn the event this information is protected by the Federal Confidentiality of Alcohol and Drug Abuse Patient Records regulations: The Federal rules restrict any use of the information to criminally investigate or prosecute any alcohol or drug abuse patient.[facility] SystemIn the event this information is protected by the Federal Confidentiality of Alcohol and Drug Abuse Patient Records regulations: The Federal rules restrict any use of the information to criminally investigate or prosecute any alcohol or drug abuse patient.[facility] SystemIn the event this information is protected by the Federal Confidentiality of Alcohol and Drug Abuse Patient Records regulations: The Federal rules restrict any use of the information to criminally investigate or prosecute any alcohol or drug abuse patient.[facility] SystemIn the event this information is protected by the Federal Confidentiality of Alcohol and Drug Abuse Patient Records regulations: The Federal rules restrict any use of the information to criminally investigate or prosecute any alcohol or drug abuse patient.[facility] SystemIn the event this information is protected by the Federal Confidentiality of Alcohol and Drug Abuse Patient Records regulations: The Federal rules restrict any use of the information to criminally investigate or prosecute any alcohol or drug abuse patient.[facility] SystemIn the event this information is protected by the Federal Confidentiality of Alcohol and Drug Abuse Patient Records regulations: The Federal rules restrict any use of the information to criminally investigate or prosecute any alcohol or drug abuse patient.[facility] SystemIn the event this information is protected by the Federal Confidentiality of Alcohol and Drug Abuse Patient Records regulations: The Federal rules restrict any use of the information to criminally investigate or prosecute any alcohol or drug abuse patient.[facility] SystemIn the event this information is protected by the Federal Confidentiality of Alcohol and Drug Abuse Patient Records regulations: The Federal rules restrict any use of the information to criminally investigate or prosecute any alcohol or drug abuse patient.[facility] SystemIn the event this information is protected by the Federal Confidentiality of Alcohol and Drug Abuse Patient Records regulations: The Federal rules restrict any use of the information to criminally investigate or prosecute any alcohol or drug abuse patient.[facility] SystemIn the event this information is protected by the Federal Confidentiality of Alcohol and Drug Abuse Patient Records regulations: The Federal rules restrict any use of the information to criminally investigate or prosecute any alcohol or drug abuse patient.[facility] SystemIn the event this information is protected by the Federal Confidentiality of Alcohol and Drug Abuse Patient Records regulations: The Federal rules restrict any use of the information to criminally investigate or prosecute any alcohol or drug abuse patient.[facility] SystemIn the event this information is protected by the Federal Confidentiality of Alcohol and Drug Abuse Patient Records regulations: The Federal rules restrict any use of the information to criminally investigate or prosecute any alcohol or drug abuse patient.[facility] SystemIn the event this information is protected by the Federal Confidentiality of Alcohol and Drug Abuse Patient Records regulations: The Federal rules restrict any use of the information to criminally investigate or prosecute any alcohol or drug abuse patient.[facility] SystemIn the event this information is protected by the Federal Confidentiality of Alcohol and Drug Abuse Patient Records regulations: The Federal rules restrict any use of the information to criminally investigate or prosecute any alcohol or drug abuse patient.[facility] SystemIn the event this information is protected by the Federal Confidentiality of Alcohol and Drug Abuse Patient Records regulations: The Federal rules restrict any use of the information to criminally investigate or prosecute any alcohol or drug abuse patient.[facility] SystemIn the event this information is protected by the Federal Confidentiality of Alcohol and Drug Abuse Patient Records regulations: The Federal rules restrict any use of the information to criminally investigate or prosecute any alcohol or drug abuse patient.[facility] SystemIn the event this information is protected by the Federal Confidentiality of Alcohol and Drug Abuse Patient Records regulations: The Federal rules restrict any use of the information to criminally investigate or prosecute any alcohol or drug abuse patient.[facility] SystemIn the event this information is protected by the Federal Confidentiality of Alcohol and Drug Abuse Patient Records regulations: The Federal rules restrict any use of the information to criminally investigate or prosecute any alcohol or drug abuse patient.[facility] SystemIn the event this information is protected by the Federal Confidentiality of Alcohol and Drug Abuse Patient Records regulations: The Federal rules restrict any use of the information to criminally investigate or prosecute any alcohol or drug abuse patient.[facility] SystemIn the event this information is protected by the Federal Confidentiality of Alcohol and Drug Abuse Patient Records regulations: The Federal rules restrict any use of the information to criminally investigate or prosecute any alcohol or drug abuse patient.[facility] SystemIn the event this information is protected by the Federal Confidentiality of Alcohol and Drug Abuse Patient Records regulations: The Federal rules restrict any use of the information to criminally investigate or prosecute any alcohol or drug abuse patient.[facility] SystemIn the event this information is protected by the Federal Confidentiality of Alcohol and Drug Abuse Patient Records regulations: The Federal rules restrict any use of the information to criminally investigate or prosecute any alcohol or drug abuse patient.[facility] SystemIn the event this information is protected by the Federal Confidentiality of Alcohol and Drug Abuse Patient Records regulations: The Federal rules restrict any use of the information to criminally investigate or prosecute any alcohol or drug abuse patient.[facility] SystemIn the event this information is protected by the Federal Confidentiality of Alcohol and Drug Abuse Patient Records regulations: The Federal rules restrict any use of the information to criminally investigate or prosecute any alcohol or drug abuse patient.[facility] SystemIn the event this information is protected by the Federal Confidentiality of Alcohol and Drug Abuse Patient Records regulations: The Federal rules restrict any use of the information to criminally investigate or prosecute any alcohol or drug abuse patient.[facility] SystemIn the event this information is protected by the Federal Confidentiality of Alcohol and Drug Abuse Patient Records regulations: The Federal rules restrict any use of the information to criminally investigate or prosecute any alcohol or drug abuse patient.[facility] SystemIn the event this information is protected by the Federal Confidentiality of Alcohol and Drug Abuse Patient Records regulations: The Federal rules restrict any use of the information to criminally investigate or prosecute any alcohol or drug abuse patient.[facility] SystemIn the event this information is protected by the Federal Confidentiality of Alcohol and Drug Abuse Patient Records regulations: The Federal rules restrict any use of the information to criminally investigate or prosecute any alcohol or drug abuse patient.[facility] SystemIn the event this information is protected by the Federal Confidentiality of Alcohol and Drug Abuse Patient Records regulations: The Federal rules restrict any use of the information to criminally investigate or prosecute any alcohol or drug abuse patient.[facility] SystemIn the event this information is protected by the Federal Confidentiality of Alcohol and Drug Abuse Patient Records regulations: The Federal rules restrict any use of the information to criminally investigate or prosecute any alcohol or drug abuse patient.[facility] SystemIn the event this information is protected by the Federal Confidentiality of Alcohol and Drug Abuse Patient Records regulations: The Federal rules restrict any use of the information to criminally investigate or prosecute any alcohol or drug abuse patient.[facility] SystemIn the event this information is protected by the Federal Confidentiality of Alcohol and Drug Abuse Patient Records regulations: The Federal rules restrict any use of the information to criminally investigate or prosecute any alcohol or drug abuse patient.[facility] Care Teams (unrecognized sec tion and content) [...] February 28, 2025 End: February 28, 2025 Luster Repairer Relationship Specialty Start Date End Date Khanh Rodriguez MD [address] [facility] [address] [place] [address] PCP - General Internal Medicine 01/25/24 Luster Repairer Relationship Specialty Start Date End Date Abdirahman Conley MD [address] [place] [address] PCP - General Internal Medicine 06/05/19 Team [...] Care Provider, Refer ring Provider Active Kesha MARQUEZ, PA-C Attending Provider Active Team Status: Active Member Role Status Dates Dr. Khanh Rodriguez MD Primary Care Provider Active Dr. Jacob Amor MD Attending Provider Active Dr. Uday Brooks MD Referring Provider Active Team Status: Inactive Member Role Status Dates Dr. Khanh Rodriguez MD Primary Care Provider, Refer ring Provider Active Kesha MARQUEZ, PA-C Active Dr. Uday Brooks MD Attending Provider Active Team Status: Active Member Role Status Dates Dr. Khanh Rodriguez MD Primary Care Provider Active Mariela Martines ELECTRON MICROPROBE OPERATOR, ELECTRON MICROPROBE OPERATOR-C Other Provider Active Thalia Barroso ELECTRON MICROPROBE OPERATOR, ELECTRON MICROPROBE OPERATOR-C Attending Provider, Referri ng Provider Active Team Status: Inactive Member Role Status Dates Dr. Khanh Rodriguez MD Primary Care Provider, Refer ring Provider Active Dr. Nabeel Patel MD Attending Provider Active Team Status: Inactive Member Role Status Dates Dr. Khanh Rodriguez MD Primary Care Provider, Refer ring Provider Active Cesia Perry ELECTRON MICROPROBE OPERATOR, ELECTRON MICROPROBE OPERATOR-C Attending Provider Active Team Status: Inactive Member [...] MD Primary Care Provider Active Mariela Martines ELECTRON MICROPROBE OPERATOR, ELECTRON MICROPROBE OPERATOR-C Attending Provi douglas, Referring Provider, Other Provider Active Team Status: Inactive Member Role Status Dates Dr. Khanh Rodriguez MD Primary Care Provider Active Dr. Uday Brooks MD Admit Provider, Attending Provider, Referring Provider Active Team Status: Inactive Member Role Status Dates Dr. Khanh Rodriguez MD Primary Care Provider Active Mariela Martines ELECTRON MICROPROBE OPERATOR, ELECTRON MICROPROBE OPERATOR-C Attending Provider, Referring Provider Active Team Status: [...] Status: Active Member Role Status Dates Dr. Khahn Rodriguez MD Primary Care Provider, Refer ring Provider Active Mariela Martines ELECTRON MICROPROBE OPERATOR, ELECTRON MICROPROBE OPERATOR-C Attending Provider, Other Pro vider Active Team Status: Active Member Role Status Dates Dr. Khanh Rodriguez MD Primary Care P rovider, Attending Provider, Referring Provider Active Team Status: Inactive Member Role Status Dates Dr. Khanh Rodriguez MD Primary Care Provider, Refer ring Provider Active Mariela Martines ELECTRON MICROPROBE OPERATOR, ELECTRON MICROPROBE OPERATOR-C Attending Provider Active Luster Repairer Relationship Specialty Start Date End Date Abdirahman Conley [address] [place] [address] [place] [address] PCP - General Internal Medicine 06/05/19 Reason for Visit (unrecogniz ed section and content) Reason Comments Physical Therapy Specialty Diagnoses / Procedures Referred By Contac t Referred To Contact [facility] Diagnoses Degenerative scoliosis Lumbar radiculopathy Chronic right-sided low back pain with right-sided sciatica Procedures CONSULT TO PHYSICAL THERAPY PHYSICAL THERAPY EVALUATION HIGH COMPLEX 45 MINS Monse Merlos, PA-C [address] [place] [id number] Phone: tel: fax: [facility] [place] [address] Referral ID Status Reason Start Date Expiration Date Visits Requested Visits Authorized [id number] Authorized PCP Requested Referral Auto-Generate d Referral 06/12/2024 06/12/2025 99 99 Reason Comments PT Eval Patient Education Specialty Diagnoses / Procedures Referred By Contac t Referred To Contact [facility] Diagnoses Degenerative scoliosis Lumbar radiculopathy Chronic right-sided low back pain with right-sided sciatica Procedures CONSULT TO PHYSICAL THERAPY PHYSICAL THERAPY EVALUATION HIGH COMPLEX 45 MINS Monse Merlos PA-C [address] [place] [address] Phone: tel: fax: [facility] [address] [place] [id number] Referral ID Status Reason Start Date Expiration Date Visits Requested Visits Authorized [id number] Authorized PCP Requested Referral Auto-Generate d Referral 06/12/2024 06/12/2025 99 99 Reason Comments PT Discharge Specialty Diagnoses / Procedures Referred By Contac t Referred To Contact [facility]YS[facility] THERAPY Diagnoses other malaise R53.81 Procedures other malaise R53.81 Solo Calderón [address] [facility] [address] [place] [address] Pt [facility] [address] [place] [address] Referral ID Status Reason Start Date Expiration Date V isits Requested Visits Authorized [id number] Authorized 09/04/2023 09/03/2024 99 99 Reason Comments PT Progress Note Specialty Diagnoses / Procedures Referred By Contac t Referred To Contact [facility] Diagnoses Venous ulcer (HCC) Venous (peripheral) insufficiency Secondary lymphedema Procedures CONSULT TO PHYSICAL THERAPY PHYSICAL THERAPY EVALUATION HIGH COMPLEX 45 MINS Gt Yin DO [address] [place] [address] [facility] [address] [address] Referral ID Status Reason Start Date Expiration Date Visits Requested Visits Authorized [id number] Authorized PCP Requested Referral Auto-Generate d Referral 02/27/2024 02/26/2025 99 99 Reason Comments PT Eval Reason Comments New Patient Reason Comments New Pain Reason Comments Appointment Reason Comments Established Patient Reason Comments New Patient Low Back Pain Right Hip Pain Left Hip Pain Leg Pain Right upper Specialty Diagnoses / Procedures Referred By Contac t Referred To Contact [facility] Diagnoses Degenerative scoliosis Procedures CONSULT TO [facility] OFFICE/OUTPATIENT NEW HIGH MDM 60 MINUTES Marisela Mccarty MD [address] [address] Referral ID Status Reason Start Date Expiration Date V isits Requested Visits Authorized [id number] Closed PCP Requested Referral 04/02/2024 04/02/2025 1 1 Reason Comments Patient Question Reason Comments Wound Evaluation Right leg wound 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 [facility] [employer] [facility]. provides no warranty or guarantee of the accuracy or completeness of information in this document.
[2025-06-07 17:54] LABS: Hematocrit 26.8 % (37-47); Hemoglobin 9.6 g/dL (12.0-15.0); Immature Granulocytes Count 0.020 X10^3/uL (0.0-0.0); Mean Corp Hgb Conc 35.8 g/dL (32-36); Mean Corpuscular Volume 105.9 fL (81-99); Mean Platelet Vol. 9.5 fl (6.2-12.0); NRBC Flagged by Analyzer 0 % (0-5); Platelet Count 161 K/mm3 (150-450); RBC Distribution Width CV 14.5 % (11.6-14.6); RBC Distribution Width SD 56.3 fl (35.1-43.9); Red Blood Count 2.53 M/mm3 (4.2-5.4); White Blood Count 5.8 K/mm3 (4.4-11.0)
--- NOTE | 2025-06-07 18:00 | RAD_ITS ---
PROCEDURE: CHEST 1 VIEW (PORTABLE) 06/07/2025 REASON FOR EXAM: EDEMA TECHNIQUE: Frontal view of the chest. COMPARISON: 06/08/2023 FINDINGS: Hardware: None Heart: Heart size is mildly enlarged. Lungs: Trace right pleural effusion and mild pulmonary vascular congestion. No definite pneumothorax or focal consolidation. Bones: The bones are unremarkable. RAD/Chest 1 View (Portable) IMPRESSION: Mild cardiomegaly and mild pulmonary vascular congestion. Trace right pleural effusion. Reading [facility]
[2025-06-07 18:18] LABS: AST(SGOT) 87 U/L (<=31); Alanine Aminotransfer ALT/SGPT 25 U/L (<=34); Albumin, Serum 3.6 g/dL (3.4-4.8); Alkaline Phosphatase 196 U/L (35-104); Anion Gap 13 (5-15); BUN 10 mg/dL (4-19); BUN/Creat Ratio 14.2 RATIO (10-20); Calcium,Total 9.1 mg/dL (7.6-11.0); Carbon Dioxide 22.5 mmol/L (21.0-32.0); Chloride 95 mmol/L (98-108); Estimated Creatinine Clearance 59.34 ml/min (50-250); Globulin 3.0 g/dL (2.2-4.2); Glucose 105 mg/dL (70-99); Potassium 4.2 mmol/L (3.3-5.1); Pro- Brain NATRIURETIC PEPTIDE 848 pg/mL (<=900)
[2025-06-07 18:48] VITALS: BP 121/55; PULSE 58; RESP 17; TEMP 37; O2SAT 100
[2025-06-07 19:01] LABS: Troponin T High Sensitivity 27 ng/L (<=14)
--- NOTE | 2025-06-07 19:07 | PCM.HP.STD ---
HPI - General General Date of Admission: 06/07/25 Date of Service: 06/07/25 Chief Complaint: Increased BL LE edema, weight gain. 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 status post excision 2022 with chronic wound, HFpEF, HTN, HLD, Former EtOH abuse (sober x 1 month, last drink was 1 glass of wine), GERD w/ Hx GI bleed who presents to the [facility] ED on 06/28 with history of recent hospitalization in [facility] and since her discharge from their where she had been treated for cellulitis she notes significant increase swelling to both lower extremities with a 13 pound weight gain taking Lasix at least 3 times a day which is above which has been prescribed twice a day however the swelling has continued with no associated chest pain or dyspnea but given worsened appearance and debility prompted eventual ED evaluation. Workup in the ED included T98.3, heart rate 59, BP 115/45, respiratory rate 16, 100% on room air, CBC with WC 5.8, Hgb 9.6, MCV 105.9, platelet 161 without marked shift, CMP with sodium 130, chloride 95, BUN/creatinine 10/0.69, GFR 92, glucose 105, T. bili 3.60, AST/LT 7/25, alk phos 196, troponin 27, NT proBNPII 848, chest x-ray no acute cardiopulmonary findings however final read pending per radiology, EKG with sinus bradycardia with no acute evidence of ischemia. In the ED patient had a start Lasix 40 mg IV x 1. [facility] Medical History Screening for breast cancer Thrombocytopenia Ascites CHF (congestive heart failure) Dyspnea Skin cancer Encounter for education Wears glasses Cancer Alcohol use Open wound High cholesterol Pulmonary embolism Back pain Injury of back History of ulceration Non-smoker History of edema Breast cancer Abnormal mammogram of left breast Left breast lump Squamous cell skin cancer Umbilical hernia Preoperative evaluation to rule out surgical contraindication Hypokalemia Cellulitis of right leg Screening for thyroid disorder History of skin cancer Ulcer of right leg Hx of staphylococcal infection Hypertension Dermatitis Osteoporosis Hyponatremia Elevated liver enzymes Post-menopausal Varicose veins of both lower extremities Hypotension Age-related physical debility Left hip pain GERD (gastroesophageal reflux disease) Bleeding ulcer Broken hip Carotid stenosis, right Vertigo Arthritis Cirrhosis Home Medications ?Medication ?Instructions ?Recorded ?Last Taken ?Type compress.stocking,knee,reg,lrg #2 ea 05/09/23 Unknown Rx acetaminophen 500 mg capsule 500 mg PO Q6H PRN pain 06/08/23 Unknown History calcium 600 mg (as 1 tab PO BID 12/27/23 12/25/23 History carbonate)-vitamin D3 5 mcg (200 unit) tablet (Calcium 600 + D(3)) anastrozole 1 mg tablet 1 mg PO DAILY #90 tabs 04/22/24 Unknown Rx furosemide 40 mg tablet 40 mg PO BID DIURETIC #180 tabs 11/27/24 Unknown Rx pantoprazole 40 mg tablet,delayed 40 mg PO DAILY GERD 3 months #90 11/27/24 Unknown Rx release tabs spironolactone 50 mg tablet 50 mg PO BID #180 tabs 11/27/24 Unknown Rx potassium chloride 20 mEq 20 meq PO BID SUPPLEMENT #90 tabs 01/13/25 Unknown Rx tablet,extended release(part/cryst) nadolol 20 mg tablet 20 mg PO DAILY BP #90 tabs 03/05/25 Unknown Rx tramadol 50 mg tablet 50 mg PO TID PRN pain #28 tabs 05/21/25 Unknown Rx Allergy/AdvReac Type Severity Reaction Status Date / Time No Known Allergies Allergy Verified 06/07/25 16:49 Family History Mother Alzheimer disease Father Heart disease Diabetes Surgical History History of kyphoplasty History of left mastectomy Hx of tonsillectomy Status post Mohs surgery History of left hip replacement History of knee replacement History of hysterectomy Social History (Updated 06/07/25 @ 19:[address] Daija Maciel MD) housing: house Smoking Status: Never smoker alcohol intake: former details: Sober x 1 month (admit date 06/07/25). substance use type: does not use ROS ROS Narrative Admission Review of Systems: CONSTITUTIONAL: No weight loss, fever, chills, + weakness or fatigue. HEENT: Eyes: No visual loss, blurred vision, double vision or yellow sclerae. Ears, Nose, Throat: No hearing loss, sneezing, congestion, runny nose or sore throat. SKIN: No rash or itching, lesions except + history of bilateral lower extremity chronic wounds, venous stasis skin changes, occasional stage ecchymoses, abrasion. CARDIOVASCULAR: + Weight gain, increased lower extremity swelling. No chest pain, chest pressure or chest discomfort, palpitations, orthopnea, syncopal events. RESPIRATORY: No shortness of breath, cough or sputum, wheezing, hemoptysis. GASTROINTESTINAL: No anorexia, nausea, vomiting or diarrhea, abdominal pain, melena, BRBPR. GENITOURINARY: No dysuria, frequency, urgency or retention. NEUROLOGICAL: No headache, dizziness, syncope, paralysis, ataxia, numbness or tingling in the extremities, focal weakness, change in bowel or bladder control, seizure. MUSCULOSKELETAL: + muscle, back pain, joint pain or stiffness. HEMATOLOGIC: + Chronic anemia, easy bleeding/bruising. LYMPHATICS: No enlarged nodes. No history of splenectomy. PSYCHIATRIC: No history of depression or anxiety. ENDOCRINOLOGIC: No reports of sweating, cold or heat intolerance. No polyuria or polydipsia. ALLERGIES: No history of asthma, hives, eczema or rhinitis. Vital Signs Vital Signs Vital Signs: 06/07/25 16:49 06/07/25 16:54 06/07/25 17:05 Temperature 98.3 F 98.3 F Temperature Source Oral Oral Pulse Rate 59 L 57 L Respiratory Rate 16 12 Respiratory Effort Normal Respiratory Pattern Normal Blood Pressure 115/45 L 115/45 L Blood Pressure Mean 68 68 Pulse Ox 100 100 Oxygen Delivery Method Room Air Room Air 06/07/25 18:48 Temperature 98.6 F Temperature Source Pulse Rate 58 L Respiratory Rate 17 Respiratory Effort Respiratory Pattern Blood Pressure 121/55 H Blood Pressure Mean 77 Pulse Ox 100 Oxygen Delivery Method Weight Weight: 149 lb 14.629 oz Body Mass Index (BMI) 25.7 Physical Exam Narrative Physical Examination: General: Awake, alert, oriented x 3 and cooperative, seated upright in the ED bed in no apparent distress, notes discomfort to BL LE. Skin: Normal color, normal turgor, no icterus, no cyanosis except notable significant bilateral lower extremity venous stasis skin changes, bilateral stasis wounds/ulcerations with no significant purulent discharge or foul odor, also stasis blisters noted, occasional stage ecchymoses and abrasions to the extremities. HEENT: AT/NC, EOMI, PERRLA, MMM, no carotid bruits, + JVD noted. Lungs: Diminished, greater bases, appropriate effort, no markedly appreciated rales, ronchi or wheezing. Heart: Mildly bradycardic with regular rhythm; no gallop, rub audible. Abdomen: Soft, NTTP, hyperactive BS, no marked distention or fluid wave, + HM. Extremities: No cyanosis, no clubbing, pedal to upper thigh bilateral significant 3+ pitting edema, see skin. Neurological: Patient awake, alert, oriented as noted, cognitive function intact; pupils equally reactive to light and accommodation, cranial nerves grossly normal, moving all 4 extremities, no focal deficits, strength moderately to severely globally decreased secondary to acute presentation complaints. Psychiatric: Affect appears fatigued, notes discomfort to the lower extremities, no acute evidence of depressive or anxiety feelings. Results Lab / Micro Data 06/07/25 17:46 06/07/25 17:46 Labs: Laboratory Results - last 24 hr 06/07/25 17:46: WBC 5.8, RBC 2.53 L, Hgb 9.6 L, Hct 26.8 L, MCV 105.9 H, MCH 37.9 H, MCHC 35.8, RDW Std Deviation 56.3 H, RDW Coeff of Carlyle 14.5, Plt Count 161, MPV 9.5, Immature Gran % (Auto) 0.300, Neut % (Auto) 70.0, Lymph % (Auto) 18.3 L, Garza % (Auto) 8.6, Eos % (Auto) 2.1, Baso % (Auto) 0.7, Absolute Neuts (auto) 4.1, Absolute Lymphs (auto) 1.07, Nucleated RBC % 0, Sodium 130 L, Potassium 4.2, Chloride 95 L, Carbon Dioxide 22.5, Anion Gap 13, BUN 10, Creatinine 0.69 L, Estim Creat Clear Calc 59.34, Est GFR (MDRD) Non-Af 92, BUN/Creatinine Ratio 14.2, Glucose 105 H, Calcium 9.1, Total Bilirubin 3.60 H, AST 87 H, ALT 25, Alkaline Phosphatase 196 H, Troponin T High Sens 27 H, NT pro BNP II 848, Total Protein 6.6, Albumin 3.6, Globulin 3.0, Albumin/Globulin Ratio 1.2 Rhythm Strip Rhythm Strip: Sinus bradycardia Rate: 57 Ectopy: None Assessment & Plan Assessment/Plan (1) Acute exacerbation of chronic heart failure: PLAN: Plan The patient is a 74 y/o F w/ PMHx: Chronic Hyponatremia secondary to EtOH abuse, Alcoholic Hepatic Cirrhosis w/ Chronic hyperbilirubinemia and chronic mild transaminitis, CKD stage II versus stage I, Chronic macrocytic anemia, Chronic bilateral lower extremity lymphedema with history of nonhealing ulcers as well as history of 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 #1. Acute Decompensated HFpEF: Patient administered IV lasix in the ED, will admit to PCU, maintain on cardiac telemetry, obtain cardiac enzyme series, obtain serial EKGs, given appearance and recent heavy lasix usage without marked effect will trial lasix drip and may adjust as needed, monitor I/Os, maintain on intake restriction, continue medical therapy with nadolol, spironolactone, not on ACEI/ARB unclear reasons, cautiously use baby aspirin, not on statin likely secondary to underlying liver disease, obtain TSH and magnesium level. Most recent ECHO noted 04/07/24 with normal LV size, normal LV systolic function, LVEF 60%, global longitudinal strain normal thus given timeline will request echocardiogram repeat. Will place snug bronson wraps with lower extremity elevation. #2. Alcoholic hepatic cirrhosis with associated chronic hyperbilirubinemia with chronic mild transaminitis: Admission hepatic profile with T. bili 3.60, AST/ALT 87/25, alk phos 196, following with gastroenterology outpatient, encouraged continued sobriety, will continue spironolactone, nadolol, Lasix as noted above. Per current list does not appear to be on any rifaximin or on any lactulose, clarified to be certain. Encouraged strict sobriety. Encouraged her to follow-up and establish with Dr. Roper/Dr. Davila office as she is established and followed up after admission for GI bleed but not established with anyone for her liver disease. #3. History left invasive ductal cancer of the breast: Following with Dr. Patel, status post left mastectomy with sentinel lymph node biopsy 06/2023 with monotherapy initiated in July 2023 with plan for continued adjuvant hormonal therapy aromatase inhibitor for at least 5 years, not candidate for systemic chemotherapy secondary to liver cirrhosis and chronic open ulcer of the right lower extremity, encourage continued follow-up outpatient with oncology as previously arranged. Will continue patient home anastrozole regimen. #4. Chronic macrocytic anemia: Admission hemoglobin 9.6, MCV 105.9, baseline hemoglobin appears to vacillate primarily 9-10, continue to trend CBC. #5. Chronic hyponatremia: Patient with previous history of significant alcohol use with chronic hyponatremia, admission sodium 130, chloride 95, similar to previous stable baseline, continue to trend. #6. Chronic Kidney Disease Stage II versus stage I: Admission BUN/Cr 10/0.69, GFR currently 92 but is vacillated between stage I and stage II, baseline renal function 0.5-0.7, repeat BMP in AM. #7. Chronic bilateral lower extremity lymphedema with history of nonhealing ulcers as well as complicated by squamous carcinoma of the skin right lower extremity status post excision 2022, wound RN consulted, dry dressings with nonadherent pending wound RN evaluation, once amenable as patient hesitant, will place snug bronson wraps with lower extremity elevation. #8. Hypertension: Continue home regimen including nadolol, spironolactone, Lasix as noted, PRN hydralazine. #9. Hyperlipidemia: Not on regimen, potentially secondary to underlying liver disease as noted. FLP in AM #10. GERD with history GI bleed: Will continue patient on PPI. #11. History of alcohol abuse: Notes sober x 1 month, last drink prior to this was 1 glass of wine. Discussed need to maintain strict sobriety. #12. DVT prophylaxis: Lovenox. #13. CODE status: Patient WALLACE is her and living will is currently in place. Discussed CODE status at length including difference between FULL code, DNR-CCA and DNR-CC status. Following discussions about the differences in these status, requested Full Code status. Advanced Care Planning Face to Face Time: 16 minutes. Charges/Coding Visit Charges Inpatient E&M: 58401 Init Hosp L3 Procedures Hospitalists Procedures: 55192 Advncd Care Plan 30 Min
--- OUTSIDE RECORDS SUMMARY | 2025-06-07 19:27 | XMS RPT_ITS | CCD ---
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 Khanh Rodriguez Primary Care Provider Dr. Jacob Amor Attending Provider Dr. Uday Brooks Referring Provider CeDr. Uday clemens Admit Provider Dr. Uday Brooks Attending Provider Dr. Uday Brooks Other Provider JOSE ALEJANDRO Carroll Attending Provider Dr. Khanh Rodriguez Referring Provider Martines ELEVATOR INSPECTOR, ELEVATOR INSPECTOR-C Mariela Other Provider Chio ELEVATOR INSPECTOR, ELEVATOR INSPECTOR-C Thalia E Attending Provider Chio ELEVATOR INSPECTOR, ELEVATOR INSPECTOR-C Thalia E Referring Provider [phone] Dr. Nabeel Patel Attending Provider Dr. Alex Ha Attending Provider Orlando ELEVATOR INSPECTOR, ELEVATOR INSPECTOR-C Cesia Attending Provider Dr. Shabbir Galaviz Attending Provider Dr. Khanh Rodriguez Primary Care Provider Dr. Khanh Rodriguez Referring Provider [phone] JOSE ALEJANDRO Carroll Attending Provider Dr. Uday Brooks Attending Provider Dr. hKanh Rodriguez Primary Care Provider [phone] Dr. Khanh Rodriguez Referring Provider [phone] JOSE ALEJANDRO Carroll Attending Provider JIMMY Flores Referring Provider [phone] Shabbir Galaviz Referring Provider [phone] Shabbir Galaviz Other Provider Dr. Khanh Rodriguez Primary Care Provider [phone] Dr. Khanh Rodriguez Referring Provider [phone] Conrad ELEVATOR INSPECTOR, ELEVATOR INSPECTOR-C Mariela Other Provider Chio ELEVATOR INSPECTOR, ELEVATOR INSPECTOR-C Thalia E Attending Provider Chio ELEVATOR INSPECTOR, ELEVATOR INSPECTOR-C Thalia E Referring Provider Dr. Shabbir Galaviz Referring Provider [phone] JIMMY Flores Attending Provider [phone] Khanh Rodriguez Attending Provider [phone] Dr. Khanh Rodriguez Primary Care Provider [phone] Dr. Khanh Rodriguez Referring Provider [phone] Dr. Khanh Rodriguez Primary Care Provider [phone] Dr. Khanh Rodriguez Referring Provider [phone] Dr. Uday Brooks Attending Provider Orlando ELEVATOR INSPECTOR, ELEVATOR INSPECTOR-C Cesai Attending Provider Dr. Shabbir Galaviz Attending Provider [...] Unavailable Abdirahman Conley MD Primary Care Provider Khanh Rodriguez MD Primary Care Provider [phone] Care Unavailable WAYT, SOLO P Referring Unavailable O'CARLSO, LISETH Attending Unavailable OLEGHE, EFEWONGBE B Primary [...] Dr. Khanh Rodriguez MD Referring Provider [phone] Solo Méndez Attending Provider [phone] Nabeel Patel MD Attending Provider Dr. Nabeel Patel MD Referring Provider Michael ARAUJO, Dr. Orozco Attending Provider [phone] Lorri ARAUJO, Dr. Spicer Attending Provider [phone] Lorri ARAUJO, Dr. Spicer Referring Provider [place] ELEVATOR INSPECTOR-CLiseth Attending Provider Jessica PA, Tracy Attending Provider [phone] Mt ARAUJO, Dr. James Attending Provider Jessica PA, Tracy Unavailable Michael ARAUJO, Dr. Orozco Primary Care Physician Solo Méndez Attending Physician Amanda ARAUJO, Dr. Lees Attending Physician Michael ARAUJO, Dr. Orozco Attending Physician [phone] Lorri ARAUJO, Dr. Spicer Attending Physician [phone] [place] ELEVATOR INSPECTOR-CLiseth Attending Physician Jessica PA, Tracy Attending Physician [...] Consulting Unavailable Oleghe, Efewongbe Primary Care Unavailable Yamiel Glez Attending Unavailable Oleghe, Efewongbe Primary Care [...] Unavailable Oleghe, Efewongbe Primary Care Unavailable Orlando ELEVATOR INSPECTOR, Cesia Referring Unavailable Orlando ELEVATOR INSPECTOR, Cesia Attending Unavailable Oleghe, Efewongbe Referring Unavailable Oleghe, Efewongbe Primary Care Unavailable Orlando ELEVATOR INSPECTOR, Cesia Attending Unavailable Oleghe, Efewongbe Referring Unavailable [...] Care Unavailable CHARLES, AMANDA Attending Unavailable MONSE MELROS Referring Unavailable OLEGHE, EFEWONGBE B Primary Care [...] Translations: [BETAMETHASONE DIPROPIONATE] Drug Allergy 0 Intolerance [facility] Repository (20 sources) clarithromycin; Translations: [CLARITHROMYCIN (BULK)] Drug Allergy 0 Other: See Comments [facility] Repository (19 sources) Chlorhexidine Drug Allergy 2 Other, Rash [facility] Medications Current Medications Medication Drug Class(es) Dates [...] SUBCUTANEOUS) Inject subcutaneously. Given by Infusion center [facility] Active Completed/Discontinued Medications Medication Drug Class(es) Dates [...] on above: Take 2 tablets by mo [facility] twice daily. ibandronic acid 150 mg oral [...] Facility CASE MANAGEMon 06-03-2025 CASE MANAGEM Normal [facility] CASE MANAGEM Normal [facility] CBC panel Auto (Bld)on 06-03 Erythrocyte distribution width (RBC) [Ratio] 15.0 % Normal 11.5-15.0 [facility] Comment on above: Order Comment: Speci men Type: BLOOD SPECIMENOrdering Facility: [facility] Address: [address] [place] [address] Performed By: #### 5 8410-2 ####[facility]ATORYCLIA [id number] [address] [place] Hematocrit (Bld) [Volume fraction] 25.6 % Low 36.0-46.0 [facility] Comment on above: Order Comment: Speci men Type: BLOOD SPECIMENOrdering Facility: [facility] Address: [address] [place] [address] Performed By: #### 5 8410-2 ####[facility] LABORATORYCLIA [id number] [place] [address] [place] Hemoglobin (Bld) [Mass/Vol] 9.3 g/dL Low 11.5-15.5 [facility] Comment on above: Order Comment: Speci men Type: BLOOD SPECIMENOrdering Facility: [facility] Address: [address] [place] [address] Performed By: #### 5 8410-2 ####[facility] LABORATORYCLIA [id number] [place] [address] [place] MCH (RBC) [Entitic mass] 37.3 pg High 26.0-34.0 [facility] Comment on above: Order Comment: Speci men Type: BLOOD SPECIMENOrdering Facility: [facility] Address: [address] [place] [address] Performed By: #### 5 8410-2 ####[facility] LABORATORYCLIA [id number] [place] [address] [place] MCHC (RBC) [Mass/Vol] 36.3 g/dL High 30.5-36.0 [facility] Comment on above: Order Comment: Speci men Type: BLOOD SPECIMENOrdering Facility: [facility] Address: [address] [place] [address] Performed By: #### 5 8410-2 ####[facility] LABORATORYCLIA [id number] [place] [address] [place] MCV (RBC) [Entitic vol] 102.8 fL High 80.0-100.0 [facility] Comment on above: Order Comment: Speci men Type: BLOOD SPECIMENOrdering Facility: [facility] Address: [address] [place] [address] Performed By: #### 5 8410-2 ####[facility] LABORATORYCLIA [id number] [address] [place] Nucleated RBC (Bld) [#/Vol] 10*3/uL Normal <0.01 [facility] Comment on above: Order Comment: Speci men Type: BLOOD SPECIMENOrdering Facility: [facility] Address: [address] [place] [address] Performed By: #### 5 8410-2 ####[facility] LABORATORYCLIA [id number] [address] [place] Platelet mean volume (Bld) [Entitic vol] 8.9 fL Low 9.0-12.7 [facility] Comment on above: Order Comment: Speci men Type: BLOOD SPECIMENOrdering Facility: [facility] Address: [address] [place] [address] Performed By: #### 5 8410-2 ####[facility] LABORATORYCLIA [id number] [place] [address] [place] Platelets (Bld) [#/Vol] 107 10*3/uL Low 150-400 [facility] Comment on above: Order Comment: Speci men Type: BLOOD SPECIMENOrdering Facility: [facility] Address: [facility] [place] [address] Performed By: #### 5 8410-2 ####[facility] LABORATORYCLIA [id number] [place] [address] [place] RBC (Bld) [#/Vol] 2.49 10*6/uL Low 3.90-5.20 [facility] Comment on above: Order Comment: Speci men Type: BLOOD SPECIMENOrdering Facility: [facility] Address: [address] [place] [address] Performed By: #### 5 8410-2 ####[facility] LABORATORYCLIA [id number] [place] [id number] [place] WBC (Bld) [#/Vol] 3.22 10*3/uL Low 3.70-11.00 [facility] Comment on above: Order Comment: Speci men Type: BLOOD SPECIMENOrdering Facility: [facility] Address: [address] [place] [address] Performed By: #### 5 8410-2 ####[facility] LABORATORYCLIA [id number] [place] [id number] [place] CNDSon 06-03-2025 CNDS Normal [facility] CONSULTon 06-03-2025 CONSULT Normal [facility] CONSULT PROGon 06-03-2025 CONSULT PROG Normal [facility] CONSULT PROG [facility] CORTISOL, 30 MIN POST COSYNT ROPIN INJECTIONon 06-03-2025 Cortisol 30 Min post Unsp challenge [Mass/Vol] 16.8 ug/dL [facility] Comment on above: Order Comment: Speci men Type: BLOOD SPECIMENOrdering Facility: [facility] Address: [address] [place] [address] Performed By: #### C OR30 ####[facility] LABCLIA [id number] [place] CORTISOL, 60 MIN POST COSYNT ROPIN INJECTION 3 POINTon 06-03-2025 Cortisol 1 Hr post Unsp challenge [Mass/Vol] 18.4 ug/dL [facility] Comment on above: Order Comment: Speci men Type: BLOOD SPECIMENOrdering Facility: [facility] Address: [address] [place] [address] Performed By: #### C ORS60M ####[facility] LABCLIA [id number] [place] [id number] [facility] [place] INTERPRETATION (ACTHST) Normal [facility] Comment on above: Order Comment: Speci men Type: BLOOD SPECIMENOrdering Facility: [facility] Address: [address] [place] [address] Result Comment: Afte r cortrosyn stimulation, a peak cortisol response greater than 12.6 ug/dL may indicate appropriate cortisol secretion. This result should be interpreted within the clinical context and other test results.Sun et al. Clinical Implications for Biochemical Diagnostic Thresholds of Adrenal Sufficiency Using a Highly Specific Cortisol Immunoassay. 2017 Clin. Biochem. 50:475-480. Performed By: #### C ORS60M ####[facility] LABCLIA [id number] [address] [place] CORTISOL, BASALon 06-03-2025 Cortisol baseline [Mass/Vol] 5.6 ug/dL Normal 4.8-19.5 [facility] Comment on above: Order Comment: Speci men Type: BLOOD SPECIMENOrdering Facility: [facility] Address: [address] [place] [address] Result Comment: Prov ided reference range is from 6-10 AM sample collection time.Cortisol Reference Range: 6-10 AM = 4.8-19.5 ug/dL, 4-8 PM = 2.5-11.9 ug/dL Performed By: #### C ORTBAS ####[facility] LABCLIA [id number] [place] [id number] [facility] [place] Comprehensive metabolic 2000 panelon 06-03-2025 Albumin [Mass/Vol] 3.2 g/dL Low 3.9-4.9 [facility] Comment on above: Order Comment: Speci men Type: BLOOD SPECIMENOrdering Facility: [facility] Address: [address] [place] [address] Performed By: #### 2 4323-8 ####[facility] LABORATORYCLIA [id number] [place] [address] [place] ALP [Catalytic activity/Vol] 185 U/L High 34-123 [facility] Comment on above: Order Comment: Speci men Type: BLOOD SPECIMENOrdering Facility: [facility] Address: [address] [place] [address] Performed By: #### 2 4323-8 ####[facility] LABORATORYCLIA [id number] [place] [address] [place] ALT [Catalytic activity/Vol] 13 U/L Normal 7-38 [facility] Comment on above: Order Comment: Speci men Type: BLOOD SPECIMENOrdering Facility: [facility] Address: [address] [place] [address] Performed By: #### 2 4323-8 ####[facility] LABORATORYCLIA [id number] [place] [address] [place] Anion gap [Moles/Vol] 10 mmol/L Normal 8-15 [facility] Comment on above: Order Comment: Speci men Type: BLOOD SPECIMENOrdering Facility: [facility] Address: [address] [place] [address] Performed By: #### 2 4323-8 ####[facility] LABORATORYCLIA [id number] [place] [address] [place] AST [Catalytic activity/Vol] 45 U/L High 13-35 [facility] Comment on above: Order Comment: Speci men Type: BLOOD SPECIMENOrdering Facility: [facility] Address: [address] [place] [address] Performed By: #### 2 4323-8 ####[facility] LABORATORYCLIA [id number] [place] [address] [place] Bilirubin [Mass/Vol] 3.1 mg/dL High 0.2-1.3 [facility] Comment on above: Order Comment: Speci men Type: BLOOD SPECIMENOrdering Facility: [facility] Address: [address] [place] [address] Performed By: #### 2 4323-8 ####[facility] LABORATORYCLIA [id number] [place] [address] [place] Calcium [Mass/Vol] 8.7 mg/dL Normal 8.5-10.2 [facility] Comment on above: Order Comment: Speci men Type: BLOOD SPECIMENOrdering Facility: [facility] Address: [address] [place] [address] Performed By: #### 2 4323-8 ####[facility] LABORATORYCLIA [id number] [place] [address] [place] Chloride [Moles/Vol] 95 mmol/L Low 98-107 [facility] Comment on above: Order Comment: Speci men Type: BLOOD SPECIMENOrdering Facility: [facility] Address: [address] [place] [address] Performed By: #### 2 4323-8 ####[facility] LABORATORYCLIA [id number] [place] [address] [place] CO2 [Moles/Vol] 27 mmol/L Normal 22-30 [facility] Comment on above: Order Comment: Speci men Type: BLOOD SPECIMENOrdering Facility: [facility] Address: [address] [place] [address] Performed By: #### 2 4323-8 ####[facility] LABORATORYCLIA [id number] [place] [address] [place] Creatinine [Mass/Vol] 0.39 mg/dL Low 0.58-0.96 [facility] Comment on above: Order Comment: Speci men Type: BLOOD SPECIMENOrdering Facility: [facility] Address: [address] [place] [address] Performed By: #### 2 4323-8 ####[facility] LABORATORYCLIA [id number] [place] [address] [place] eGFRcr SerPlBld CKD-EPI 2020 105 mL/min/1.73m??? Normal >=60 [facility] Comment on above: Order Comment: Speci men Type: BLOOD SPECIMENOrdering Facility: [facility] Address: [address] [place] [address] Result Comment: Kaylyn mated Glomerular Filtration Rate [...] Performed By: #### 2 4323-8 ####[facility] LABORATORYCLIA [id number] [place] [address] [place] Glucose [Mass/Vol] 85 mg/dL Normal 74-99 [facility] Comment on above: Order Comment: Steve lemons Type: BLOOD SPECIMENOrdering Facility: [facility] Address: [address] [place] [address] Result Comment: The [place] [employer] (ADA) provides guidance for cutoff [...] Standards of Medical Care in Diabetes 2016, [place] [employer]. Diabetes Care. 2016.39(Suppl 1). Performed By: #### 2 4323-8 ####[facility] LABORATORYCLIA [id number] [place] [address] [place] Potassium [Moles/Vol] 3.1 mmol/L Low 3.7-5.1 [facility] Comment on above: Order Comment: Steve lemons Type: BLOOD SPECIMENOrdering Facility: [facility] Address: [address] [place] [address] Performed By: #### 2 4323-8 ####[facility] LABORATORYCLIA [id number] [place] [address] [place] Protein [Mass/Vol] 5.3 g/dL Low 6.3-8.0 [facility] Comment on above: Order Comment: Steve lemons Type: BLOOD SPECIMENOrdering Facility: [facility] Address: [address] [place] [address] Performed By: #### 2 4323-8 ####[facility] LABORATORYCLIA [id number] [place] [address] [place] Sodium [Moles/Vol] 132 mmol/L Low 136-144 [facility] Comment on above: Order Comment: Speci men Type: BLOOD SPECIMENOrdering Facility: [facility] Address: [address] [place] [address] Performed By: #### 2 4323-8 ####[facility] LABORATORYCLIA [id number] [place] [address] [place] Urea nitrogen [Mass/Vol] 7 mg/dL Normal 7-21 [facility] Comment on above: Order Comment: Speci men Type: BLOOD SPECIMENOrdering Facility: [facility] Address: [address] [place] [address] Performed By: #### 2 4323-8 ####[facility] LABORATORYCLIA [id number] [address] [place] ALLIED HEALTHon 06-02-2025 ALLIED HEALTH Normal [facility] CASE MANAGEMon 06-02-2025 CASE MANAGEM [facility] CBC panel Auto (Bld)on 06-02 Erythrocyte distribution width (RBC) [Ratio] 14.9 % Normal 11.5-15.0 [facility] Comment on above: Order Comment: Speci men Type: BLOOD SPECIMENOrdering Facility: [facility] Address: [address] [place] [address] Performed By: #### 5 8410-2 ####[facility] LABORATORYCLIA [id number] [place] [address] [place] Hematocrit (Bld) [Volume fraction] 26.9 % Low 36.0-46.0 [facility] Comment on above: Order Comment: Speci men Type: BLOOD SPECIMENOrdering Facility: [facility] Address: [address] [place] [address] Performed By: #### 5 8410-2 ####[facility] LABORATORYCLIA [id number] [address] [place] Hemoglobin (Bld) [Mass/Vol] 9.6 g/dL Low 11.5-15.5 [facility] Comment on above: Order Comment: Speci men Type: BLOOD SPECIMENOrdering Facility: [facility] Address: [address] [place] [address] Performed By: #### 5 8410-2 ####[facility] LABORATORYCLIA [id number] [address] MCH (RBC) [Entitic mass] 37.6 pg High 26.0-34.0 [facility] Comment on above: Order Comment: Speci men Type: BLOOD SPECIMENOrdering Facility: [facility] Address: [address] [place] [address] Performed By: #### 5 8410-2 ####[facility] LABORATORYCLIA [id number] [address] MCHC (RBC) [Mass/Vol] 35.7 g/dL Normal 30.5-36.0 [facility] Comment on above: Order Comment: Speci men Type: BLOOD SPECIMENOrdering Facility: [facility] Address: [address] [place] [address] Performed By: #### 5 8410-2 ####[facility] LABORATORYCLIA [id number] [address] MCV (RBC) [Entitic vol] 105.5 fL High 80.0-100.0 [facility] Comment on above: Order Comment: Speci men Type: BLOOD SPECIMENOrdering Facility: [facility] Address: [address] [place] [address] Performed By: #### 5 8410-2 ####[facility] LABORATORYCLIA [id number] [address] Nucleated RBC (Bld) [#/Vol] 10*3/uL Normal <0.01 [facility] Comment on above: Order Comment: Speci men Type: BLOOD SPECIMENOrdering Facility: [facility] Address: [address] [place] [address] Performed By: #### 5 8410-2 ####[facility] LABORATORYCLIA [id number] [address] [place] Platelet mean volume (Bld) [Entitic vol] 9.1 fL Normal 9.0-12.7 [facility] Comment on above: Order Comment: Speci men Type: BLOOD SPECIMENOrdering Facility: [facility] Address: [address] [place] [address] Performed By: #### 5 8410-2 ####[facility] LABORATORYCLIA [id number] [address] [place] Platelets (Bld) [#/Vol] 98 10*3/uL Low 150-400 [facility] Comment on above: Order Comment: Speci men Type: BLOOD SPECIMENOrdering Facility: [facility] Address: [address] [place] [address] Result Comment: No c lot detected. Performed By: #### 5 8410-2 ####[facility] LABORATORYCLIA [id number] [address] [place] RBC (Bld) [#/Vol] 2.55 10*6/uL Low 3.90-5.20 [facility] Comment on above: Order Comment: Speci men Type: BLOOD SPECIMENOrdering Facility: [facility] Address: [address] [place] [address] Performed By: #### 5 8410-2 ####[facility] LABORATORYCLIA [id number] [address] WBC (Bld) [#/Vol] 3.25 10*3/uL Low 3.70-11.00 [facility] Comment on above: Order Comment: Speci men Type: BLOOD SPECIMENOrdering Facility: [facility] Address: [address] [place] [address] Performed By: #### 5 8410-2 ####[facility] LABORATORYCLIA [id number] [address] [place] CONSULT PROGon 06-02-2025 CONSULT PROG Normal [facility] CONSULT PRO Normal [facility] CONSULT PROG Normal [facility] CONSULT PROG Normal [facility] CONSULT PRO Normal [facility] Comprehensive metabolic 2000 panelon 06-02-2025 Albumin [Mass/Vol] 3.2 g/dL Low 3.9-4.9 [facility] Comment on above: Order Comment: Speci men Type: BLOOD SPECIMENOrdering Facility: [facility] Address: [address] [place] [address] Performed By: #### 2 4323-8, 73789-8, 2776-09 ####[facility] LABORATORYCLIA [id number] [place] [address] [place] ALP [Catalytic activity/Vol] 182 U/L High 34-123 [facility] Comment on above: Order Comment: Speci men Type: BLOOD SPECIMENOrdering Facility: [facility] Address: [address] [place] [address] Performed By: #### 2 4323-8, , 2776-09 ####[facility] LABORATORYCLIA [id number] [address] [place] ALT [Catalytic activity/Vol] 14 U/L Normal 7-38 [facility] Comment on above: Order Comment: Speci men Type: BLOOD SPECIMENOrdering Facility: [facility] Address: [address] [place] [address] Performed By: #### 2 4323-8, , 2776-09 ####[facility] LABORATORYCLIA [id number] [place] [address] [place] Anion gap [Moles/Vol] 8 mmol/L Normal 8-15 [facility] Comment on above: Order Comment: Speci men Type: BLOOD SPECIMENOrdering Facility: [facility] Address: [address] [place] [id number] Performed By: #### 2 4323-8, , 2776-09 ####[facility] LABORATORYCLIA [id number] [address] [place] AST [Catalytic activity/Vol] 51 U/L High 13-35 [facility] Comment on above: Order Comment: Speci men Type: BLOOD SPECIMENOrdering Facility: [facility] Address: [address] [place] [address] Performed By: #### 2 4323-8, , 2776- ####[facility] LABORATORYCLIA [id number] [place] [address] [place] Bilirubin [Mass/Vol] 3.7 mg/dL High 0.2-1.3 [facility] Comment on above: Order Comment: Speci men Type: BLOOD SPECIMENOrdering Facility: [facility] Address: [address] [place] [address] Performed By: #### 2 4323-8, , 2776-09 ####[facility] LABORATORYCLIA [id number] [place] [address] [place] Calcium [Mass/Vol] 8.3 mg/dL Low 8.5-10.2 [facility] Comment on above: Order Comment: Speci men Type: BLOOD SPECIMENOrdering Facility: [facility] Address: [address] [place] [address] Performed By: #### 2 4323-8, , 2776-09 ####[facility] LABORATORYCLIA [id number] [place] [address] [place] Chloride [Moles/Vol] 98 mmol/L Normal 98-107 [facility] Comment on above: Order Comment: Speci men Type: BLOOD SPECIMENOrdering Facility: [facility] Address: [address] [place] [address] Performed By: #### 2 4323-8, , 2776-09 ####[facility] LABORATORYCLIA [id number] [place] [address] [place] CO2 [Moles/Vol] 27 mmol/L Normal 22-30 [facility] Comment on above: Order Comment: Speci men Type: BLOOD SPECIMENOrdering Facility: [facility] Address: [address] [id number] Performed By: #### 2 4323-8, , 2776-09 ####MCLAIN LABORATORYCLIA [id number] [place] [address] [place] Creatinine [Mass/Vol] 0.45 mg/dL Low 0.58-0.96 [facility] Comment on above: Order Comment: Speci men Type: BLOOD SPECIMENOrdering Facility: [facility] Address: [address] [place] [address] Performed By: #### 2 4323-8, 00438-9, 2776- ####MCLAIN LABORATORYCLIA [id number] [place] [address] [place] eGFRcr SerPlBld CKD-EPI 2020 102 mL/min/1.73m??? Normal >=60 [facility] Comment on above: Order Comment: Steve lemons Type: BLOOD SPECIMENOrdering Facility: [facility] Address: [address] [place] [address] Result Comment: Kaylyn mated Glomerular Filtration Rate [...] actual GFR. Performed By: #### 2 4323-8, 97099-6, 2776-09 ####MCLAIN LABORATORYCLIA [id number] [place] [address] [place] Glucose [Mass/Vol] 91 mg/dL Normal 74-99 [facility] Comment on above: Order Comment: Steve lemons Type: BLOOD SPECIMENOrdering Facility: [facility] Address: [address] [place] [address] Result Comment: The [place] [employer] (ADA) provides guidance for cutoff [...] Standards of Medical Care in Diabetes 2016, [place] [employer]. Diabetes Care. 2016.39(Suppl 1). Performed By: #### 2 4323-8, 95776-8, 277- ####MCLAIN LABORATORYCLIA [id number] [place] [address] [place] Potassium [Moles/Vol] 3.5 mmol/L Low 3.7-5.1 [facility] Comment on above: Order Comment: Speci men Type: BLOOD SPECIMENOrdering Facility: [facility] Address: [address] [place] [address] Performed By: #### 2 4323-8, , 2776-09 ####MCLAIN LABORATORYCLIA [id number] [place] [address] [place] Protein [Mass/Vol] 5.2 g/dL Low 6.3-8.0 [facility] Comment on above: Order Comment: Speci men Type: BLOOD SPECIMENOrdering Facility: [facility] Address: [address] [place] [address] Performed By: #### 2 4323-8, , 2776-09 ####MCLAIN LABORATORYCLIA [id number] [address] STATES OF [facility] Sodium [Moles/Vol] 133 mmol/L Low 136-144 [facility] Comment on above: Order Comment: Speci men Type: BLOOD SPECIMENOrdering Facility: [facility] Address: [address] [place] [address] Performed By: #### 2 4323-8, , 2776-09 ####MCLAIN LABORATORYCLIA [id number] [address] [place] Urea nitrogen [Mass/Vol] 5 mg/dL Low 7-21 [facility] Comment on above: Order Comment: Speci men Type: BLOOD SPECIMENOrdering Facility: [facility] Address: [address] [place] [address] Performed By: #### 2 4323-8, , 2776-09 ####MCLAIN LABORATORYCLIA [id number] [place] [address] [place] ECG COMPLETEon 06-02-2025 ECG COMPLETE Normal [facility] MRI 3D POST PROCESSINGon MRI 3D POST PROCESSING Normal [facility] MRI PANC/ALBERT WO IVCONon -5 MRI PANC/ALBERT WO IVCON Normal [facility] Magnesium SerPl-mCncon 06-02 Magnesium [Mass/Vol] 1.4 mg/dL Low 1.7-2.3 [facility] Comment on above: Order Comment: Speci men Type: BLOOD SPECIMENOrdering Facility: [facility] Address: [address] [place] [address] Performed By: #### 2 4323-8, 29702-2, 277-1 ####AXIS LABORATORYCLIA [id number] [place] [address] [place] NUTRITIONon 06-02-2025 NUTRITION Normal [facility] Phosphate SerPl-ncon 06-02 Phosphate [Mass/Vol] 1.3 mg/dL Low 2.7-4.8 [facility] Comment on above: Order Comment: Speci men Type: BLOOD SPECIMENOrdering Facility: [facility] Address: [address] [place] [address] Performed By: #### 2 4323-8, , 2777- ####AXIS LABORATORYCLIA [id number] [place] [address] [place] CBC panel Auto (Bld)on 06-01 Erythrocyte distribution width (RBC) [Ratio] 15.1 % High 11.5-15.0 [facility] Comment on above: Order Comment: Speci men Type: BLOOD SPECIMENOrdering Facility: [facility] Address: [address] [place] [address] Performed By: #### 5 8410-2 ####AXIS LABORATORYCLIA [id number] [place] [address] [place] Hematocrit (Bld) [Volume fraction] 25.8 % Low 36.0-46.0 [facility] Comment on above: Order Comment: Speci men Type: BLOOD SPECIMENOrdering Facility: [facility] Address: [address] [place] [address] Performed By: #### 5 8410-2 ####AXIS LABORATORYCLIA [id number] [address] [place] Hemoglobin (Bld) [Mass/Vol] 9.4 g/dL Low 11.5-15.5 [facility] Comment on above: Order Comment: Speci men Type: BLOOD SPECIMENOrdering Facility: [facility] Address: [address] [place] [address] Performed By: #### 5 8410-2 ####MCLAIN LABORATORYCLIA [id number] [place] [address] [place] MCH (RBC) [Entitic mass] 38.2 pg High 26.0-34.0 [facility] Comment on above: Order Comment: Speci men Type: BLOOD SPECIMENOrdering Facility: [facility] Address: [address] [place] [address] Performed By: #### 5 8410-2 ####MCLAIN LABORATORYCLIA [id number] [place] [address] [place] MCHC (RBC) [Mass/Vol] 36.4 g/dL High 30.5-36.0 [facility] Comment on above: Order Comment: Speci men Type: BLOOD SPECIMENOrdering Facility: [facility] Address: [address] [place] [address] Performed By: #### 5 8410-2 ####MCLAIN LABORATORYCLIA [id number] [address] [place] MCV (RBC) [Entitic vol] 104.9 fL High 80.0-100.0 [facility] Comment on above: Order Comment: Speci men Type: BLOOD SPECIMENOrdering Facility: [facility] Address: [address] [place] [address] Performed By: #### 5 8410-2 ####MCLAIN LABORATORYCLIA [id number] [address] [place] Nucleated RBC (Bld) [#/Vol] 10*3/uL Normal <0.01 [facility] Comment on above: Order Comment: Speci men Type: BLOOD SPECIMENOrdering Facility: [facility] Address: [address] [place] [address] Performed By: #### 5 8410-2 ####MCLAIN LABORATORYCLIA [id number] [place] [address] [place] Platelet mean volume (Bld) [Entitic vol] 8.8 fL Low 9.0-12.7 [facility] Comment on above: Order Comment: Speci men Type: BLOOD SPECIMENOrdering Facility: [facility] Address: [address] [place] [address] Performed By: #### 5 8410-2 ####MCLAIN LABORATORYCLIA [id number] [place] [address] [place] Platelets (Bld) [#/Vol] 105 10*3/uL Low 150-400 [facility] Comment on above: Order Comment: Speci men Type: BLOOD SPECIMENOrdering Facility: [facility] Address: [address] [place] [address] Performed By: #### 5 8410-2 ####AXIS LABORATORYCLIA [id number] [place] [address] [place] RBC (Bld) [#/Vol] 2.46 10*6/uL Low 3.90-5.20 [facility] Comment on above: Order Comment: Speci men Type: BLOOD SPECIMENOrdering Facility: [facility] Address: [address] [place] [address] Performed By: #### 5 8410-2 ####MCLAIN LABORATORYCLIA [id number] [place] [address] [place] WBC (Bld) [#/Vol] 3.89 10*3/uL Normal 3.70-11.00 [facility] Comment on above: Order Comment: Speci men Type: BLOOD SPECIMENOrdering Facility: [facility] Address: [address] [place] [address] Performed By: #### 5 8410-2 ####AXIS LABORATORYCLIA [id number] [address] [id number] [place] [facility] [place] CONSULT PROGon 06-01-2025 CONSULT PROG Normal [facility] CONSULT PROG Normal [facility] Comprehensive metabolic 2000 panelon 06-01-2025 Albumin [Mass/Vol] 3.7 g/dL Low 3.9-4.9 [facility] Comment on above: Order Comment: Speci men Type: BLOOD SPECIMENOrdering Facility: [facility] Address: [address] [place] [address] Performed By: #### 2 4323-8 ####MCLAIN LABORATORYCLIA [id number] [place] [address] [place] ALP [Catalytic activity/Vol] 183 U/L High 34-123 [facility] Comment on above: Order Comment: Speci men Type: BLOOD SPECIMENOrdering Facility: [facility] Address: [address] [place] [address] Performed By: #### 2 4323-8 ####MCLAIN LABORATORYCLIA [id number] [place] [address] [place] ALT [Catalytic activity/Vol] 13 U/L Normal 7-38 [facility] Comment on above: Order Comment: Speci men Type: BLOOD SPECIMENOrdering Facility: [facility] Address: [address] [place] [address] Performed By: #### 2 4323-8 ####MCLAIN LABORATORYCLIA [id number] [place] [address] [place] Anion gap [Moles/Vol] 11 mmol/L Normal 8-15 [facility] Comment on above: Order Comment: Speci men Type: BLOOD SPECIMENOrdering Facility: [facility] Address: [address] [place] [address] Performed By: #### 2 4323-8 ####MCLAIN LABORATORYCLIA [id number] [address] [place] AST [Catalytic activity/Vol] 46 U/L High 13-35 [facility] Comment on above: Order Comment: Speci men Type: BLOOD SPECIMENOrdering Facility: [facility] Address: [address] [place] [address] Performed By: #### 2 4323-8 ####MCLAIN LABORATORYCLIA [id number] [place] [address] [place] Bilirubin [Mass/Vol] 4.3 mg/dL High 0.2-1.3 [facility] Comment on above: Order Comment: Speci men Type: BLOOD SPECIMENOrdering Facility: [facility] Address: [address] [place] [address] Performed By: #### 2 4323-8 ####MCLAIN LABORATORYCLIA [id number] [place] [address] [place] Calcium [Mass/Vol] 8.2 mg/dL Low 8.5-10.2 [facility] Comment on above: Order Comment: Speci men Type: BLOOD SPECIMENOrdering Facility: [facility] Address: [address] [place] [address] Performed By: #### 2 4323-8 ####MCLAIN LABORATORYCLIA [id number] [place] [address] [place] Chloride [Moles/Vol] 94 mmol/L Low 98-107 [facility] Comment on above: Order Comment: Speci men Type: BLOOD SPECIMENOrdering Facility: [facility] Address: [address] [place] [address] Performed By: #### 2 4323-8 ####MCLAIN LABORATORYCLIA [id number] [place] [address] [place] CO2 [Moles/Vol] 25 mmol/L Normal 22-30 [facility] Comment on above: Order Comment: Speci men Type: BLOOD SPECIMENOrdering Facility: [facility] Address: [address] [place] [address] Performed By: #### 2 4323-8 ####MCLAIN LABORATORYCLIA [id number] [place] [address] [place] Creatinine [Mass/Vol] 0.49 mg/dL Low 0.58-0.96 [facility] Comment on above: Order Comment: Speci men Type: BLOOD SPECIMENOrdering Facility: [facility] Address: [address] [place] [address] Performed By: #### 2 4323-8 ####MCLAIN LABORATORYCLIA [id number] [address] [place] eGFRcr SerPlBld CKD-EPI 2020 100 mL/min/1.73m??? Normal >=60 [facility] Comment on above: Order Comment: Speci men Type: BLOOD SPECIMENOrdering Facility: [facility] Address: [address] [place] [address] Result Comment: Kaylyn mated Glomerular Filtration Rate [...] actual GFR. Performed By: #### 2 4323-8 ####AXIS LABORATORYCLIA [id number] [place] [id number] [place] Glucose [Mass/Vol] 89 mg/dL Normal 74-99 [facility] Comment on above: Order Comment: Steve lemons Type: BLOOD SPECIMENOrdering Facility: [facility] Address: [address] [place] [address] Result Comment: The [place] [employer] (ADA) provides guidance for cutoff [...] Standards of Medical Care in Diabetes 2016, [place] [employer]. Diabetes Care. 2016.39(Suppl 1). Performed By: #### 2 4323-8 ####AXIS LABORATORYCLIA [id number] [address] [id number] [place] Potassium [Moles/Vol] 3.9 mmol/L Normal 3.7-5.1 [facility] Comment on above: Order Comment: Steve men Type: BLOOD SPECIMENOrdering Facility: [facility] Address: [address] [id number] Performed By: #### 2 4323-8 ####AXIS LABORATORYCLIA [id number] [place] [address] [place] Protein [Mass/Vol] 5.7 g/dL Low 6.3-8.0 [facility] Comment on above: Order Comment: Speci men Type: BLOOD SPECIMENOrdering Facility: [facility] Address: [address] [place] [address] Performed By: #### 2 4323-8 ####MCLAIN LABORATORYCLIA [id number] [address] Sodium [Moles/Vol] 130 mmol/L Low 136-144 [facility] Comment on above: Order Comment: Speci men Type: BLOOD SPECIMENOrdering Facility: [facility] Address: [address] [place] [address] Performed By: #### 2 4323-8 ####MCLAIN LABORATORYCLIA [id number] [address] Urea nitrogen [Mass/Vol] 4 mg/dL Low 7-21 [facility] Comment on above: Order Comment: Speci men Type: BLOOD SPECIMENOrdering Facility: [facility] Address: [address] [place] [address] Performed By: #### 2 4323-8 ####MCLAIN LABORATORYCLIA [id number] [address] CBC panel Auto (Bld)on 05-31 Erythrocyte distribution width (RBC) [Ratio] 15.3 % High 11.5-15.0 [facility] Comment on above: Order Comment: Speci men Type: BLOOD SPECIMENOrdering Facility: [facility] Address: [address] [place] [address] Performed By: #### 5 8410-2 ####MCLAIN LABORATORYCLIA [id number] [address] Hematocrit (Bld) [Volume fraction] 24.2 % Low 36.0-46.0 [facility] Comment on above: Order Comment: Speci men Type: BLOOD SPECIMENOrdering Facility: [facility] Address: [address] [place] [address] Performed By: #### 5 8410-2 ####MCLAIN LABORATORYCLIA [id number] [address] Hemoglobin (Bld) [Mass/Vol] 8.6 g/dL Low 11.5-15.5 [facility] Comment on above: Order Comment: Speci men Type: BLOOD SPECIMENOrdering Facility: [facility] Address: [address] [place] [address] Performed By: #### 5 8410-2 ####MCLAIN LABORATORYCLIA [id number] [address] MCH (RBC) [Entitic mass] 37.7 pg High 26.0-34.0 [facility] Comment on above: Order Comment: Speci men Type: BLOOD SPECIMENOrdering Facility: [facility] Address: [address] [place] [address] Performed By: #### 5 8410-2 ####MCLAIN LABORATORYCLIA [id number] [address] MCHC (RBC) [Mass/Vol] 35.5 g/dL Normal 30.5-36.0 [facility] Comment on above: Order Comment: Speci men Type: BLOOD SPECIMENOrdering Facility: [facility] Address: [address] [place] [address] Performed By: #### 5 8410-2 ####MCLAIN LABORATORYCLIA [id number] [address] MCV (RBC) [Entitic vol] 106.1 fL High 80.0-100.0 [facility] Comment on above: Order Comment: Speci men Type: BLOOD SPECIMENOrdering Facility: [facility] Address: [address] [place] [address] Performed By: #### 5 8410-2 ####MCLAIN LABORATORYCLIA [id number] [address] Nucleated RBC (Bld) [#/Vol] 10*3/uL Normal <0.01 [facility] Comment on above: Order Comment: Speci men Type: BLOOD SPECIMENOrdering Facility: [facility] Address: [address] [place] [address] Performed By: #### 5 8410-2 ####MCLAIN LABORATORYCLIA [id number] [address] [place] Platelet mean volume (Bld) [Entitic vol] 9.0 fL Normal 9.0-12.7 [facility] Comment on above: Order Comment: Speci men Type: BLOOD SPECIMENOrdering Facility: [facility] Address: [address] [place] [address] Performed By: #### 5 8410-2 ####MCLAIN LABORATORYCLIA [id number] [place] [address] [place] Platelets (Bld) [#/Vol] 94 10*3/uL Low 150-400 [facility] Comment on above: Order Comment: Speci men Type: BLOOD SPECIMENOrdering Facility: [facility] Address: [address] [place] [address] Performed By: #### 5 8410-2 ####MCLAIN LABORATORYCLIA [id number] [place] [address] [place] RBC (Bld) [#/Vol] 2.28 10*6/uL Low 3.90-5.20 [facility] Comment on above: Order Comment: Speci men Type: BLOOD SPECIMENOrdering Facility: [facility] Address: [address] [place] [address] Performed By: #### 5 8410-2 ####MCLAIN LABORATORYCLIA [id number] [address] [place] WBC (Bld) [#/Vol] 3.76 10*3/uL Normal 3.70-11.00 [facility] Comment on above: Order Comment: Speci men Type: BLOOD SPECIMENOrdering Facility: [facility] Address: [address] [place] [address] Performed By: #### 5 8410-2 ####MCLAIN LABORATORYCLIA [id number] [address] [place] CONSULT PROGon 05-31-2025 CONSULT PROG Normal [facility] CONSULT PROG Normal [facility] CONSULT PROG Normal [facility] Comprehensive metabolic 2000 panelon 05-31-2025 Albumin [Mass/Vol] 3.2 g/dL Low 3.9-4.9 [facility] Comment on above: Order Comment: Speci men Type: BLOOD SPECIMENOrdering Facility: [facility] Address: [address] [place] [address] Performed By: #### 2 4322-8, ####MCLAIN LABORATORYCLIA [id number] [place] [address] [place] ALP [Catalytic activity/Vol] 173 U/L High 34-123 [facility] Comment on above: Order Comment: Speci men Type: BLOOD SPECIMENOrdering Facility: [facility] Address: [address] [place] [address] Performed By: #### 2 8, ####MCLAIN LABORATORYCLIA [id number] [address] [place] ALT [Catalytic activity/Vol] 12 U/L Normal 7-38 [facility] Comment on above: Order Comment: Speci men Type: BLOOD SPECIMENOrdering Facility: [facility] Address: [address] [place] [address] Performed By: #### 2 4323-04, ####MCLAIN LABORATORYCLIA [id number] [place] [address] [place] Anion gap [Moles/Vol] 10 mmol/L Normal 8-15 [facility] Comment on above: Order Comment: Speci men Type: BLOOD SPECIMENOrdering Facility: [facility] Address: [address] [place] [address] Performed By: #### 2 8, ####MCLAIN LABORATORYCLIA [id number] [place] [id number] [place] AST [Catalytic activity/Vol] 45 U/L High 13-35 [facility] Comment on above: Order Comment: Speci men Type: BLOOD SPECIMENOrdering Facility: [facility] Address: [address] [place] [address] Performed By: #### 2 4328, ####MCLAIN LABORATORYCLIA [id number] [place] [id number] [place] Bilirubin [Mass/Vol] 4.9 mg/dL High 0.2-1.3 [facility] Comment on above: Order Comment: Speci men Type: BLOOD SPECIMENOrdering Facility: [facility] Address: [address] [id number] Performed By: #### 2 4323-8, ####MCLAIN LABORATORYCLIA [id number] [place] [address] [place] Calcium [Mass/Vol] 7.8 mg/dL Low 8.5-10.2 [facility] Comment on above: Order Comment: Speci men Type: BLOOD SPECIMENOrdering Facility: [facility] Address: [address] [place] [address] Performed By: #### 2 4328, ####MCLAIN LABORATORYCLIA [id number] [place] [address] [place] Chloride [Moles/Vol] 93 mmol/L Low 98-107 [facility] Comment on above: Order Comment: Speci men Type: BLOOD SPECIMENOrdering Facility: [facility] Address: [address] [place], [place] [address] Performed By: #### 2 43238, ####MCLAIN LABORATORYCLIA [id number] [place] [address] [place] CO2 [Moles/Vol] 25 mmol/L Normal 22-30 [facility] Comment on above: Order Comment: Speci men Type: BLOOD SPECIMENOrdering Facility: [facility] Address: [address] [place] [id number] Performed By: #### 2 4323-8, ####MCLAIN LABORATORYCLIA [id number] [place] [address] [place] Creatinine [Mass/Vol] 0.44 mg/dL Low 0.58-0.96 [facility] Comment on above: Order Comment: Speci men Type: BLOOD SPECIMENOrdering Facility: [facility] Address: [address] [id number] Performed By: #### 2 4323-8, ####MCLAIN LABORATORYCLIA [id number] [place] [address] [place] eGFRcr SerPlBld CKD-EPI 2020 102 mL/min/1.73m??? Normal >=60 [facility] Comment on above: Order Comment: Steve lemons Type: BLOOD SPECIMENOrdering Facility: [facility] Address: [address] [place] [address] Result Comment: Kaylyn mated Glomerular Filtration Rate [...] Performed By: #### 2 4323-8, ####MCLAIN LABORATORYCLIA [id number] [place] [address] [place] Glucose [Mass/Vol] 86 mg/dL Normal 74-99 [facility] Comment on above: Order Comment: Steve lemons Type: BLOOD SPECIMENOrdering Facility: [facility] Address: [address] [place] [address] Result Comment: The [place] [employer] (ADA) provides guidance for cutoff [...] Standards of Medical Care in Diabetes 2016, [place] [employer]. Diabetes Care. 2016.39(Suppl 1). Performed By: #### 2 4323-8, ####AXIS LABORATORYCLIA [id number] [place] [id number] [place] Potassium [Moles/Vol] 3.5 mmol/L Low 3.7-5.1 [facility] Comment on above: Order Comment: Speci men Type: BLOOD SPECIMENOrdering Facility: [facility] Address: [address] [id number] Performed By: #### 2 3-8, ####MCLAIN LABORATORYCLIA [id number] [place] [address] [place] Protein [Mass/Vol] 5.3 g/dL Low 6.3-8.0 [facility] Comment on above: Order Comment: Speci men Type: BLOOD SPECIMENOrdering Facility: [facility] Address: [address] [place] [address] Performed By: #### 2 4322-8, ####MCLAIN LABORATORYCLIA [id number] [place] [address] [place] Sodium [Moles/Vol] 128 mmol/L Low 136-144 [facility] Comment on above: Order Comment: Speci men Type: BLOOD SPECIMENOrdering Facility: [facility] Address: [address] [place] [address] Performed By: #### 2 4322-8, ####MCLAIN LABORATORYCLIA [id number] [place] [address] [place] Urea nitrogen [Mass/Vol] 5 mg/dL Low 7-21 [facility] Comment on above: Order Comment: Speci men Type: BLOOD SPECIMENOrdering Facility: [facility] Address: [address] [place] [address] Performed By: #### 2 4323-8, ####MCLAIN LABORATORYCLIA [id number] [place] [id number] [place] Magnesium SerPl-mCncon 05-31 Magnesium [Mass/Vol] 1.7 mg/dL Normal 1.7-2.3 [facility] Comment on above: Order Comment: Speci men Type: BLOOD SPECIMENOrdering Facility: [facility] Address: [address] [place] [address] Performed By: #### 2 4323-8, ####MCLAIN LABORATORYCLIA [id number] [place] [id number] [place] ANES POSTPROC EVALon 025 ANES POSTPROC EVAL Normal [facility] ANES PRE-OPon 05-30-2025 ANES PRE-OP Normal [facility] Bacteria Spec Anaerobe Culto n 05-30-2025 Bacteria identified Anaer cx Nom (Unsp spec) Negative Normal [facility] Comment on above: Performed By: #### 6 35-3, 6462-6 ####[facility] LABCLIA [id number] [facility] [id number], [place] [address] [place] Bacteria identified Anaer cx Nom (Unsp spec) Negative Normal [facility] Comment on above: Performed By: #### 6 35-3, 6462-6 ####[facility] LABCLIA [id number] [address] [place] [address] [place] Bacteria Wnd Culton 05-30-20 25 Bacteria identified Cx Nom (Wound) Abnormal [facility] Comment on above: Performed By: #### 6 35-3, 6462-6 ####[facility] LABCLIA [id number] [address] [place] [address] [place] Bacteria identified Cx Nom (Wound) CULTURE, WOUND: No growth GRAM STAIN: No organisms seen No Polymorphonuclear Leukocytes Normal [facility] Comment on above: Performed By: #### 6 35-3, 6462-6 ####[facility] LABCLIA [id number] [address] [place] [address] [place] CBC panel Auto (Bld)on 05-30 Erythrocyte distribution width (RBC) [Ratio] 15.2 % High 11.5-15.0 [facility] Comment on above: Order Comment: Speci men Type: BLOOD SPECIMENOrdering Facility: [facility] Address: [address] [place] [id number] Performed By: #### 5 8410-2 ####[facility]ATORYCLIA [id number] [place] [address] [place] Hematocrit (Bld) [Volume fraction] 24.5 % Low 36.0-46.0 [facility] Comment on above: Order Comment: Speci men Type: BLOOD SPECIMENOrdering Facility: [facility] Address: [address] [place] [address] Performed By: #### 5 8410-2 ####[facility]ORYCLIA [id number] [address] Hemoglobin (Bld) [Mass/Vol] 9.0 g/dL Low 11.5-15.5 [facility] Comment on above: Order Comment: Speci men Type: BLOOD SPECIMENOrdering Facility: [facility] Address: [address] [place] [address] Performed By: #### 5 8410-2 ####[facility]ATORYCLIA [id number] [address] MCH (RBC) [Entitic mass] 38.1 pg High 26.0-34.0 [facility] Comment on above: Order Comment: Speci men Type: BLOOD SPECIMENOrdering Facility: [facility] Address: [address] [place] [address] Performed By: #### 5 8410-2 ####[facility]ORATORYCLIA [id number] [address] MCHC (RBC) [Mass/Vol] 36.7 g/dL High 30.5-36.0 [facility] Comment on above: Order Comment: Speci men Type: BLOOD SPECIMENOrdering Facility: [facility] Address: [address] [place] [address] Performed By: #### 5 8410-2 ####[facility]ORYCLIA [id number] [address] MCV (RBC) [Entitic vol] 103.8 fL High 80.0-100.0 [facility] Comment on above: Order Comment: Speci men Type: BLOOD SPECIMENOrdering Facility: [facility] Address: [address] [place] [address] Performed By: #### 5 8410-2 ####[facility]ORATORYCLIA [id number] [place] [address] [place] Nucleated RBC (Bld) [#/Vol] 10*3/uL Normal <0.01 [facility] Comment on above: Order Comment: Speci men Type: BLOOD SPECIMENOrdering Facility: [facility] Address: [address] [place] [address] Performed By: #### 5 8410-2 ####[facility]ATORYCLIA [id number] [place] [address] [place] Platelet mean volume (Bld) [Entitic vol] 9.2 fL Normal 9.0-12.7 [facility] Comment on above: Order Comment: Speci men Type: BLOOD SPECIMENOrdering Facility: [facility] Address: [address] [place] [address] Performed By: #### 5 8410-2 ####[facility]ORATORYCLIA [id number] [place] [address] [place] Platelets (Bld) [#/Vol] 93 10*3/uL Low 150-400 [facility] Comment on above: Order Comment: Speci men Type: BLOOD SPECIMENOrdering Facility: [facility] Address: [address] [place] [address] Performed By: #### 5 8410-2 ####[facility]ORATORYCLIA [id number] [place] [address] [place] RBC (Bld) [#/Vol] 2.36 10*6/uL Low 3.90-5.20 [facility] Comment on above: Order Comment: Speci men Type: BLOOD SPECIMENOrdering Facility: [facility] Address: [address] [place] [address] Performed By: #### 5 8410-2 ####[facility]ORATORYCLIA [id number] [place] [id number] [place] WBC (Bld) [#/Vol] 4.82 10*3/uL Normal 3.70-11.00 [facility] Comment on above: Order Comment: Speci men Type: BLOOD SPECIMENOrdering Facility: [facility] Address: [address] [place] [address] Performed By: #### 5 8410-2 ####[facility] LABORATORYCLIA [id number] [place] [address] [place] CONSULTon 05-30-2025 CONSULT Normal [facility] CONSULT Normal [facility] CONSULT PROGon 05-30-2025 CONSULT PROG Normal [facility] CONSULT PROG Normal [facility] CONSULT PROG Normal [facility] Comprehensive metabolic 2000 panelon 05-30-2025 Albumin [Mass/Vol] 2.8 g/dL Low 3.9-4.9 [facility] Comment on above: Order Comment: Speci men Type: BLOOD SPECIMENOrdering Facility: [facility] Address: [address] [place] [address] Performed By: #### 2 4323-8, 2951-2, 24439-0, 2777-1 ####[facility]ORATORYCLIA [id number] [place] [address] [place] ALP [Catalytic activity/Vol] 190 U/L High 34-123 [facility] Comment on above: Order Comment: Speci men Type: BLOOD SPECIMENOrdering Facility: [facility] Address: [address] [place] [address] Performed By: #### 2 4323-8, 2951-2, 71018-5, 2777-1 ####[facility] LABORATORYCLIA [id number] [place] [address] [place] ALT [Catalytic activity/Vol] 13 U/L Normal 7-38 [facility] Comment on above: Order Comment: Speci men Type: BLOOD SPECIMENOrdering Facility: [facility] Address: [address] [place] [address] Performed By: #### 2 4323-8, 2951-2, 91645-6, 2777-1 ####[facility] LABORATORYCLIA [id number] [place] [address] [place] Anion gap [Moles/Vol] 10 mmol/L Normal 8-15 [facility] Comment on above: Order Comment: Speci men Type: BLOOD SPECIMENOrdering Facility: [facility] Address: [address] [place] [address] Performed By: #### 2 4323-8, 2951-2, 48671-0, 2777-1 ####[facility] LABORATORYCLIA [id number] [place] [address] [place] AST [Catalytic activity/Vol] 41 U/L High 13-35 [facility] Comment on above: Order Comment: Speci men Type: BLOOD SPECIMENOrdering Facility: [facility] Address: [address] [place] [address] Performed By: #### 2 4323-8, 2951-2, 30218-9, 2777-1 ####[facility] LABORATORYCLIA [id number] [place] [address] [place] Bilirubin [Mass/Vol] 4.4 mg/dL High 0.2-1.3 [facility] Comment on above: Order Comment: Speci men Type: BLOOD SPECIMENOrdering Facility: [facility] Address: [address] [place] [address] Performed By: #### 2 4323-8, 2951-2, 43886-3, 2777-1 ####[facility]ORATORYCLIA [id number] [place] [address] [place] Calcium [Mass/Vol] 7.9 mg/dL Low 8.5-10.2 [facility] Comment on above: Order Comment: Speci men Type: BLOOD SPECIMENOrdering Facility: [facility] Address: [address] [place] [address] Performed By: #### 2 4323-8, 2951-2, 27781-1, 2777-1 ####[facility] LABORATORYCLIA [id number] [place] [address] [place] Chloride [Moles/Vol] 88 mmol/L Low 98-107 [facility] Comment on above: Order Comment: Speci men Type: BLOOD SPECIMENOrdering Facility: [facility] Address: [address] [place] [address] Performed By: #### 2 4323-8, 2951-2, 83016-3, 2777-1 ####[facility] LABORATORYCLIA [id number] [place] [address] [place] CO2 [Moles/Vol] 26 mmol/L Normal 22-30 [facility] Comment on above: Order Comment: Speci men Type: BLOOD SPECIMENOrdering Facility: [facility] Address: [address] [place] [address] Performed By: #### 2 4323-8, 2951-2, 67164-9, 2777-1 ####[facility]ORATORYCLIA [id number] [place] [address] [place] Creatinine [Mass/Vol] 0.42 mg/dL Low 0.58-0.96 [facility] Comment on above: Order Comment: Speci men Type: BLOOD SPECIMENOrdering Facility: [facility] Address: [address] [place] [address] Performed By: #### 2 4323-8, 2951-2, 73924-9, 2777-1 ####[facility]ORATORYCLIA [id number] [address] [place] eGFRcr SerPlBld CKD-EPI 2020 103 mL/min/1.73m??? Normal >=60 [facility] Comment on above: Order Comment: Speci men Type: BLOOD SPECIMENOrdering Facility: [facility] Address: [address] [place] [address] Result Comment: Kaylyn mated Glomerular Filtration Rate [...] GFR. Performed By: #### 2 4323-8, 2951-2, 42535-4, 2777-1 ####[facility]ORATORYCLIA [id number] [place] [address] [place] Glucose [Mass/Vol] 101 mg/dL High 74-99 [facility] Comment on above: Order Comment: Speci men Type: BLOOD SPECIMENOrdering Facility: [facility] Address: [address] [place] [address] Result Comment: The [place] [employer] (ADA) provides guidance for cutoff [...] Standards of Medical Care in Diabetes 2016, [place] [employer]. Diabetes Care. 2016.39(Suppl 1). Performed By: #### 2 4323-8, 2951-2, 13203-7, 2777-1 ####[facility] LABORATORYCLIA [id number] [place] [address] [place] Potassium [Moles/Vol] 3.5 mmol/L Low 3.7-5.1 [facility] Comment on above: Order Comment: Steve lemons Type: BLOOD SPECIMENOrdering Facility: [facility] Address: [address] [place] [address] Performed By: #### 2 4323-8, 2951-2, 08609-4, 2777-1 ####[facility] LABORATORYCLIA [id number] [place] [address] [place] Protein [Mass/Vol] 5.0 g/dL Low 6.3-8.0 [facility] Comment on above: Order Comment: Steve lemons Type: BLOOD SPECIMENOrdering Facility: [facility] Address: [address] [place] [address] Performed By: #### 2 4323-8, 2951-2, 16290-1, 2777-1 ####[facility] LABORATORYCLIA [id number] [place] [id number] [place] Urea nitrogen [Mass/Vol] 6 mg/dL Low 7-21 [facility] Comment on above: Order Comment: Steve lemons Type: BLOOD SPECIMENOrdering Facility: [facility] Address: [address] [place] [address] Performed By: #### 2 4323-8, 2951-2, 19582-1, 2777-1 ####[facility] LABORATORYCLIA [id number] [place] [id number] [place] Cortis SerPl-mCncon 05-30-20 25 Cortisol [Mass/Vol] 4.8 ug/dL Normal 4.8-19.5 [facility] Comment on above: Order Comment: Speci men Type: BLOOD SPECIMENOrdering Facility: [facility] Address: [address] [place] [address] Result Comment: Prov ided reference range is from 6-10 AM sample collection time.Cortisol Reference Range: 6-10 AM = 4.8-19.5 ug/dL, 4-8 PM = 2.5-11.9 ug/dL Performed By: #### 2 143-6 ####[facility] LABCLIA [id number] [place] [address] [place] Folate SerPl-mCncon 05-30-20 25 Folate [Mass/Vol] 2.8 ng/mL Low >4.7 [facility] Comment on above: Order Comment: Speci men Type: BLOOD SPECIMENOrdering Facility: [facility] Address: [address] [place] [address] Performed By: #### 2 132-9, 2284-8 ####[facility] LABORATORYCLIA [id number] [place] [address] [place] Magnesium SerPl-mCncon 05-30 Magnesium [Mass/Vol] 1.9 mg/dL Normal 1.7-2.3 [facility] Comment on above: Order Comment: Speci men Type: BLOOD SPECIMENOrdering Facility: [facility] Address: [address] [place] [address] Performed By: #### 1 9123-9, 2951-2 ####[facility]ORATORYCLIA [id number] [place] [id number] [place] NUTRITIONon 05-30-2025 NUTRITION Normal [facility] OPERATIVE NOon 05-30-2025 OPERATIVE NO [facility] PHOSPHATIDYLETHANOL (PETH)on 05-30-2025 EER PETH See Note Normal [facility] Comment on above: Order Comment: Speci men Type: BLOOD SPECIMENOrdering Facility: [facility] Address: [address] [place] [address] Result Comment: Auth orized individuals can access the [employer] Enhanced Reportwith an [employer] Connect account using the following link.Your local lab can assist you in obtaining the patientreport if you don't have a Connect account.[email or web address] Performed By: #### P ETH ####[facility]IESCLIA [id number] [place] [id number] PETH 16:0/18.2 (PLPETH) 118 ng/mL Normal [facility] Comment on above: Order Comment: Speci men Type: BLOOD SPECIMENOrdering Facility: [facility] Address: [address] [place] [address] Result Comment: Refe rence ranges are not well established. Performed By: #### P ETH ####[facility]ORATORIESCLIA [id number] [place] [id number] PETH 16:0/18:1 (POPETH) 199 ng/mL Normal [facility] Comment on above: Order Comment: Speci men Type: BLOOD SPECIMENOrdering Facility: [facility] Address: [address] [place] [address] Result Comment: PEth 16:0/18:1 (POPEth)Less than 10 ng/mL............Not detectedLess than 20 ng/mL............Abstinence or light vnjawujaflheswigfu29 - 200 ng/mL................Moderate alcohol consumptionGreater than 200 ng/mL........Heavy alcohol consumption or chronicalcohol use(Reference: Ric Lujan and Bethel Long 2018 J. Forensic Sci) Performed By: #### P ETH ####[facility]ORATORIESCLIA [id number] [place] [address] PETH INTERPRETATION See Comment Normal [facility] Comment on above: Order Comment: Speci men Type: BLOOD SPECIMENOrdering Facility: [facility] Address: [address] [place] [address] Result Comment: Phos phatidylethanol (PEth) is a [...] was developed and its performance characteristicsdetermined by [facility]. It has not been cleared orapproved by the U.S. Food and Drug Administration. This test wasperformed in a CLIA-certified laboratory and is intended forclinical purposes.Performed By: [facility] [place], [place] [address]Umxqgidqhi Director: Hugo Dsouza MD, PhDCLIA Number: [id number] Performed By: #### P ETH ####[facility] Buy Auto PartsIA [id number] [place] [address] Pathology biopsy report Emir (Tiss)on 05-30-2025 AP DISCLAIMER Normal [facility] Comment on above: Order Comment: Speci men Type: TISSUE SPECIMENOrdering Facility: [facility] Address: [address] [place] [address] Result Comment: Ron bass Developed Test (LDT) Disclaimer:Performance characteristics of immunohistochemical, immunofluorescent, and chromogenic in-situ hybridization tests have been determined by the performing laboratory within the [facility] Department of Pathology and Laboratory Medicine ([facility], [facility], [facility], [facility], [facility], [facility], or [facility]) in a manner consistent with CLIA requirements. One or more of these tests may not have been cleared or approved by the FDA. The [facility] Department of Pathology and Laboratory Medicine is regulated under CLIA as qualified to perform high-complexity testing. These tests are used for clinical purposes. These should not be regarded as investigational or for research. Positive and negative controls stain appropriately. Performed By: #### 6 6121-5 ####[facility] LABIA [id number] [place] [id number] [place] CASE REPORT Normal [facility] Comment on above: Order Comment: Speci men Type: TISSUE SPECIMENOrdering Facility: [facility] Address: [address] [place] [address] Result Comment: Surg ical Pathology Report Case: [id number] Provider: Amanda Dougherty DPM Collected: 05/30/2025 12:59 PMOrdering Location: [facility] Surgery Received: 05/30/2025 02:21 PMPathologist: Ayanna Huerta MDSpecimens: A) - Skin Lesion/Soft Tissue Ulcer (Specify site in comment), right lower leg ulcer tissue biopsy B) - Skin Lesion/Soft Tissue Ulcer (Specify site in comment), left lower leg ulcer tissue biopsy Performed By: #### 6 6121-5 ####[facility] LABIA [id number] [place] [address] [place] CLINICAL HISTORY Normal [facility] Comment on above: Order Comment: Speci cristo Type: TISSUE SPECIMENOrdering Facility: [facility] Address: [address] [place] [address] Result Comment: Pre- op diagnosis:Wound infection [T14.8XXA, L08.9]Cellulitis of left lower extremity [L03.116]Cellulitis of right lower extremity [L03.115] Performed By: #### 6 6121-5 ####[facility] LABIA [id number] [place] [id number] [place] DIAGNOSIS COMMENT Normal [facility] Comment on above: Order Comment: Speci men Type: TISSUE SPECIMENOrdering Facility: [facility] Address: [address] [place] [address] Result Comment: A, B . The histologic [...] is recommended. Performed By: #### 6 6121-5 ####[facility] LABCLIA [id number] [address] FINAL DIAGNOSIS [facility] Comment on above: Order Comment: Speci men Type: TISSUE SPECIMENOrdering Facility: [facility] Address: [address] [place] [address] Result Comment: A. S kin, right lower leg, punch biopsy:- Ulcer with stasis changes and mixed acute and chronic dermal inflammation, see comment.B. Skin, left lower leg, punch biopsy:- Ulcer with dermal fibrosis and mixed acute and chronic inflammation, see comment.MP/TN at 1624 EDT Performed By: #### 6 6121-5 ####[facility] LABCLIA [id number] [address] OF [facility] FINAL PERFORMING LAB [facility] Comment on above: Order Comment: Speci cristo Type: TISSUE SPECIMENOrdering Facility: [facility] Address: [address] [place] [address] Result Comment: Diag nostic interpretation performed at: [facility], [address] [place] [address] CLIA# [id number] Director: Moises Gonzalez MD Performed By: #### 6 6121-5 ####[facility] LABCLIA [id number] [place] [address] [place] GROSS DESCRIPTION Normal [facility] Comment on above: Order Comment: Speci men Type: TISSUE SPECIMENOrdering Facility: [facility] Address: [address] [place] [address] Result Comment: A. S kin Lesion/Soft Tissue [...] 30, 2025 4:26 PMGross examination performed at [facility], [address] [place] [address] Performed By: #### 6 6121-5 ####[facility] LABCLIA [id number] [place] [address] [place] Phosphate SerPl-mCncon 05-30 Phosphate [Mass/Vol] 2.6 mg/dL Low 2.7-4.8 [facility] Comment on above: Order Comment: Speci men Type: BLOOD SPECIMENOrdering Facility: [facility] Address: [address] [place] [address] Performed By: #### 2 4323-8, 2951-2, 77366-2, 2777-1 ####[facility] LABORATORYCLIA [id number] [place] [address] [place] Procalcitonin SerPl-mCncon 0 05-30-2025 Procalcitonin [Mass/Vol] 0.29 ng/mL High <0.09 [facility] Comment on above: Order Comment: Speci men Type: BLOOD SPECIMENOrdering Facility: [facility] Address: [address] [place] [address] Result Comment: For a guided interpretation of test results, please visit the Change in Procalcitonin Calculator, [email or web address]. Performed By: #### 2 4323-8, 2951-2, 56439-8, 2777-1 ####[facility] LABORATORYCLIA [id number] [place] [address] [place] Sodium SerPl-sCncon 05-30-20 25 Sodium [Moles/Vol] 125 mmol/L Low 136-144 [facility] Comment on above: Order Comment: Speci men Type: BLOOD SPECIMENOrdering Facility: [facility] Address: [address] [place] [address] Performed By: #### 1 9123-9, 2951-2 ####[facility] LABORATORYCLIA [id number] [address] STATES OF [facility] Sodium [Moles/Vol] 124 mmol/L Low 136-144 [facility] Comment on above: Order Comment: Speci men Type: BLOOD SPECIMENOrdering Facility: [facility] Address: [address] [place] [address] Performed By: #### 2 4323-8, 2951-2, 55904-0, 2777-1 ####[facility] LABORATORYCLIA [id number] [place] [address] [place] Vit B12 SerPl-mCncon 025 Cobalamin (Vitamin B12) [Mass/Vol] 1660 pg/mL High 232-1245 [facility] Comment on above: Order Comment: Speci men Type: BLOOD SPECIMENOrdering Facility: [facility] Address: [address] [place] [address] Performed By: #### 2 132-9, 2284-8 ####[facility] LABORATORYCLIA [id number] [address] 25(OH)D3 SerPl-mCncon 2024 25-hydroxyvitamin D3 [Mass/Vol] 61.8 ng/mL Normal 31.0-80.0 [facility] Comment on above: Order Comment: Speci men Type: BLOOD SPECIMENOrdering Facility: [facility] Address: [address] [place] [address] Performed By: #### 1 989-3 ####[facility] LABCLIA [id number] [facility] [id number], [place] [address] [place] ALLIED HEALTHon 05-29-2025 ALLIED HEALTH Normal [facility] Bacteria Bld Culton 05-29-20 Bacteria identified Cx Nom (Bld) CULTURE, BLOOD: No growth 5 days [facility] Comment on above: Performed By: #### 6 00-7 ####[facility] LABCLIA [id number] [facility] [id number] [address] [place] Bacteria identified Cx Nom (Bld) CULTURE, BLOOD: No growth 5 days GRAM STAIN: This blood culture had less than the recommended 8 ml per bottle, which could decrease the sensitivity of the test. [facility] Comment on above: Performed By: #### 6 00-7 ####[facility] LABCLIA [id number] [facility] [id number], [place] [address] [place] Bacteria Ur Culton Bacteria identified Cx Nom (U) CULTURE, URINE: No growth (<1,000 CFU/ml) [facility] Comment on above: Performed By: #### 6 30-4 ####[facility] LABCLIA [id number] [facility] [id number], [place] [address] [place] CASE MGT INIT ASSESon 2024 CASE MGT INIT [facility] CBC panel Auto (Bld)on 05-29 Erythrocyte distribution width (RBC) [Ratio] 15.5 % High 11.5-15.0 [facility] Comment on above: Order Comment: Speci men Type: BLOOD SPECIMENOrdering Facility: [facility] Address: [address] [place] [address] Performed By: #### 5 8410-2 ####[facility] LABORATORYCLIA [id number] [address] Hematocrit (Bld) [Volume fraction] 26.2 % Low 36.0-46.0 [facility] Comment on above: Order Comment: Speci men Type: BLOOD SPECIMENOrdering Facility: [facility] Address: [address] [place] [address] Performed By: #### 5 8410-2 ####[facility] LABORATORYCLIA [id number] [address] [place] Hemoglobin (Bld) [Mass/Vol] 9.6 g/dL Low 11.5-15.5 [facility] [facility] Comment on above: Order Comment: Speci men Type: BLOOD SPECIMENOrdering Facility: [facility] Address: [address] [place] [address] Performed By: #### 5 8410-2 ####[facility] LABORATORYCLIA [id number] [address] MCH (RBC) [Entitic mass] 37.9 pg High 26.0-34.0 [facility] Comment on above: Order Comment: Speci men Type: BLOOD SPECIMENOrdering Facility: [facility] Address: [address] [place] [address] Performed By: #### 5 8410-2 ####[facility] LABORATORYCLIA [id number] [address] [place] MCHC (RBC) [Mass/Vol] 36.6 g/dL High 30.5-36.0 [facility] Comment on above: Order Comment: Speci men Type: BLOOD SPECIMENOrdering Facility: [facility] Address: [address] [place] [address] Performed By: #### 5 8410-2 ####[facility] LABORATORYCLIA [id number] [address] MCV (RBC) [Entitic vol] 103.6 fL High 80.0-100.0 [facility] Comment on above: Order Comment: Speci men Type: BLOOD SPECIMENOrdering Facility: [facility] Address: [address] [place] [address] Performed By: #### 5 8410-2 ####[facility] LABORATORYCLIA [id number] [address] [place] Nucleated RBC (Bld) [#/Vol] 10*3/uL Normal <0.01 [facility] Comment on above: Order Comment: Speci men Type: BLOOD SPECIMENOrdering Facility: [facility] Address: [address] [place] [address] Performed By: #### 5 8410-2 ####[facility] LABORATORYCLIA [id number] [place] [address] [place] Platelet mean volume (Bld) [Entitic vol] 9.5 fL Normal 9.0-12.7 [facility] Comment on above: Order Comment: Speci men Type: BLOOD SPECIMENOrdering Facility: [facility] Address: [address] [place] [address] Performed By: #### 5 8410-2 ####[facility]IN LABORATORYCLIA [id number] [address] [place] Platelets (Bld) [#/Vol] 94 10*3/uL Low 150-400 [facility] Comment on above: Order Comment: Speci men Type: BLOOD SPECIMENOrdering Facility: [facility] Address: [address] [place] [address] Result Comment: No c lot detected. Performed By: #### 5 8410-2 ####[facility] LABORATORYCLIA [id number] [address] [place] RBC (Bld) [#/Vol] 2.53 10*6/uL Low 3.90-5.20 [facility] Comment on above: Order Comment: Speci men Type: BLOOD SPECIMENOrdering Facility: [facility] Address: [address] [place] [address] Performed By: #### 5 8410-2 ####M[facility]IN LABORATORYCLIA [id number] [place] [address] [place] [facility] [place] WBC (Bld) [#/Vol] 6.38 10*3/uL Normal 3.70-11.00 [facility] Comment on above: Order Comment: Speci men Type: BLOOD SPECIMENOrdering Facility: [facility] Address: [address] [place] [address] Performed By: #### 5 8410-2 ####AXIS LABORATORYCLIA [id number] [place] [address] [place] CONSULTon 05-29-2025 CONSULT Normal [facility] CONSULT Normal [facility] CONSULT Normal [facility] CONSULT Normal [facility] CONSULT Normal [facility] COPPER BLOODon 05-29-2025 Copper [Mass/Vol] 72 ug/dL Low 80-155 [facility] Comment on above: Order Comment: Steve cristo Type: BLOOD SPECIMENOrdering Facility: [facility] Address: [address] [place] [address] Result Comment: This test was developed, and its performance characteristics determined by the [facility] Department of Pathology and Laboratory Medicine. It has not been cleared or approved by the FDA. The [facility] Department of Pathology and Laboratory Medicine is regulated under CLIA as qualified to perform high-complexity testing. This test is used for clinical purposes. It should not be regarded as investigational or for research. Performed By: #### 5 763-8, COPPER ####[facility] LABCLIA [id number] [place] [id number] [place] CT ABD/PEL WO IVCONon 2024 CT ABD/PEL WO IVCON Normal [facility] Comprehensive metabolic 2000 panelon 05-29-2025 Albumin [Mass/Vol] 2.7 g/dL Low 3.9-4.9 [facility] Comment on above: Order Comment: Speci men Type: BLOOD SPECIMENOrdering Facility: [facility] Address: [address] [place] [address] Performed By: #### 1 9123-9, 3084-1, 21971-0, 2777-1, 3016-3, 11931-1 ####AXIS LABORATORYCLIA [id number] [place] [address] [place] ALP [Catalytic activity/Vol] 222 U/L High 34-123 [facility] Comment on above: Order Comment: Speci men Type: BLOOD SPECIMENOrdering Facility: [facility] Address: [address] [place] [address] [place] [address] Performed By: #### 1 9123-9, 3084-1, 01958-1, 2777-1, 3016-3, 09768-7 ####AXIS LABORATORYCLIA [id number] [place] [address] [place] ALT [Catalytic activity/Vol] 14 U/L Normal 7-38 [facility] Comment on above: Order Comment: Speci men Type: BLOOD SPECIMENOrdering Facility: [facility] Address: [address] [place] [address] Performed By: #### 1 9123-9, 3084-1, 77833-0, 2777-1, 3016-3, 90064-5 ####AXIS LABORATORYCLIA [id number] [place] [address] [place] Anion gap [Moles/Vol] 12 mmol/L Normal 8-15 [facility] Comment on above: Order Comment: Speci men Type: BLOOD SPECIMENOrdering Facility: [facility] Address: [address] [place] [address] Performed By: #### 1 9123-9, 3084-1, 97696-9, 2777-1, 3016-3, 49164-3 ####AXIS LABORATORYCLIA [id number] [place] [address] [place] AST [Catalytic activity/Vol] 49 U/L High 13-35 [facility] Comment on above: Order Comment: Speci men Type: BLOOD SPECIMENOrdering Facility: [facility] Address: [address] [place], [place] [address] Performed By: #### 1 9123-9, 3084-1, 94812-4, 2777-1, 3016-3, 47932-4 ####AXIS LABORATORYCLIA [id number] [place] [address] [place] Bilirubin [Mass/Vol] 5.7 mg/dL High 0.2-1.3 [facility] Comment on above: Order Comment: Speci men Type: BLOOD SPECIMENOrdering Facility: [facility] Address: [address] [place] [address] Performed By: #### 1 9123-9, 3084-1, 13938-6, 2777-1, 3016-3, 34946-9 ####AXIS LABORATORYCLIA [id number] [place] [address] [place] Calcium [Mass/Vol] 7.8 mg/dL Low 8.5-10.2 [facility] Comment on above: Order Comment: Speci men Type: BLOOD SPECIMENOrdering Facility: [facility] Address: [address] [place] [address] Performed By: #### 1 9123-9, 3084-1, 73520-2, 2777-1, 3016-3, 87411-9 ####AXIS LABORATORYCLIA [id number] [place] [address] [place] Chloride [Moles/Vol] 87 mmol/L Low 98-107 [facility] Comment on above: Order Comment: Speci men Type: BLOOD SPECIMENOrdering Facility: [facility] Address: [address] [place] [address] Performed By: #### 1 9123-9, 3084-1, 93808-4, 2777-1, 3016-3, 27262-8 ####AX[facility] LABORATORYCLIA [id number] [place] [address] [place] CO2 [Moles/Vol] 26 mmol/L Normal 22-30 [facility] Comment on above: Order Comment: Speci men Type: BLOOD SPECIMENOrdering Facility: [facility] Address: [address] [place] [address] Performed By: #### 1 9123-9, 3084-1, 11177-7, 2777-1, 3016-3, 18668-9 ####AXIS LABORATORYCLIA [id number] [place] [address] [place] Creatinine [Mass/Vol] 0.47 mg/dL Low 0.58-0.96 [facility] Comment on above: Order Comment: Speci men Type: BLOOD SPECIMENOrdering Facility: [facility] Address: [address] [place] [address] Performed By: #### 1 9123-9, 3084-1, 78579-8, 2777-1, 3016-3, 38752-2 ####M[facility] LABORATORYCLIA [id number] [place] [id number] [place] eGFRcr SerPlBld CKD-EPI 2020 101 mL/min/1.73m??? Normal >=60 [facility] Comment on above: Order Comment: Steve lemons Type: BLOOD SPECIMENOrdering Facility: [facility] Address: [address] [place] [address] Result Comment: Kaylyn mated Glomerular Filtration Rate [...] GFR. Performed By: #### 1 9123-9, 3084-1, 00232-0, 2777-1, 3016-3, 61030-5 ####M[facility] LABORATORYCLIA [id number] [place] [id number] [place] Glucose [Mass/Vol] 90 mg/dL Normal 74-99 [facility] Comment on above: Order Comment: Steve cristo Type: BLOOD SPECIMENOrdering Facility: [facility] Address: [address] [place] [address] Result Comment: The [place] [employer] (ADA) provides guidance for cutoff [...] Standards of Medical Care in Diabetes 2016, [place] [employer]. Diabetes Care. 2016.39(Suppl 1). Performed By: #### 1 9123-9, 3084-1, 33778-5, 2777-1, 3016-3, 98850-9 ####M[facility]IN LABORATORYCLIA [id number] [place] [address] [place] Potassium [Moles/Vol] 2.6 mmol/L Low 3.7-5.1 [facility] Comment on above: Order Comment: Speci men Type: BLOOD SPECIMENOrdering Facility: [facility] Address: [address] [place] [address] Performed By: #### 1 9123-9, 3084-1, 57495-7, 2777-1, 3016-3, 61266-9 ####M[facility] LABORATORYCLIA [id number] [place] [address] [place] Protein [Mass/Vol] 5.3 g/dL Low 6.3-8.0 [facility] Comment on above: Order Comment: Speci men Type: BLOOD SPECIMENOrdering Facility: [facility] Address: [address] [place] [address] Performed By: #### 1 9123-9, 3084-1, 01444-4, 2777-1, 3016-3, 60025-9 ####M[facility] LABORATORYCLIA [id number] [place] [address] [place] Sodium [Moles/Vol] 125 mmol/L Low 136-144 [facility] Comment on above: Order Comment: Speci men Type: BLOOD SPECIMENOrdering Facility: [facility] Address: [address] [place] [address] Performed By: #### 1 9123-9, 3084-1, 64363-9, 2777-1, 3016-3, 94734-1 ####M[facility] LABORATORYCLIA [id number] [place] [address] [place] Urea nitrogen [Mass/Vol] 6 mg/dL Low 7-21 [facility] Comment on above: Order Comment: Speci men Type: BLOOD SPECIMENOrdering Facility: [facility] Address: [address] [place] [address] [place] [address] Performed By: #### 1 9123-9, 3084-1, 01669-9, 2777-1, 3016-3, 62520-9 ####AXIS LABORATORYCLIA [id number] [address] OF [facility] ECG COMPLETEon 05-29-2025 ECG COMPLETE Normal [facility] Lactate (Bld) [Moles/Vol]on 05-29-2025 Lactate [Moles/Vol] 1.7 mmol/L Normal 0.5-2.2 [facility] Comment on above: Order Comment: Speci men Type: BLOOD SPECIMENOrdering Facility: [facility] Address: [address] [place] [address] Performed By: #### 3 2693-4 ####AXIS LABORATORYCLIA [id number] [address] [facility]29 Magnesium [Mass/Vol] 1.3 mg/dL Low 1.7-2.3 [facility] Comment on above: Order Comment: Speci men Type: BLOOD SPECIMENOrdering Facility: [facility] Address: [address] [place] [address] Performed By: #### 1 9123-9, 3084-1, 75074-6, 2777-1, 3016-3, 74940-0 ####AXIS LABORATORYCLIA [id number] [address] NT-proBNP SerPl-ncon 05-29 Natriuretic peptide.B prohormone N-Terminal [Mass/Vol] 2188 pg/mL High <125 [facility] Comment on above: Order Comment: Speci men Type: BLOOD SPECIMENOrdering Facility: [facility] Address: [address] [place] [address] [place] [address] Performed By: #### 1 9123-9, 3084-1, 04318-0, 2777-1, 3016-3, 23894-7 ####M[facility] LABORATORYCLIA [id number] [place] [address] [place] Osmolality Uron 05-29-2025 Osmolality (U) [Osmolality] 516 mosm/kg Normal 50-1200 [facility] Comment on above: Order Comment: Speci men Type: URINE SPECIMENOrdering Facility: [facility] Address: [address] [place] [address] Performed By: #### 2 695-5 ####[facility] LABCLIA [id number] [address] [place] PHOSPHATIDYLETHANOL (PETH)on 05-29-2025 EER PETH See Note Normal [facility] Comment on above: Order Comment: Speci men Type: BLOOD SPECIMENOrdering Facility: [facility] Address: [address] [place] [address] Result Comment: Auth orized individuals can access the [employer] Enhanced Reportwith an [employer] Connect account using the following link.Your local lab can assist you in obtaining the patientreport if you don't have a Connect account.[email or web address] Performed By: #### P ETH ####[facility] LABORATORIESCLIA [id number] [place] [address] PETH 16:0/18.2 (PLPETH) 148 ng/mL Normal [facility] Comment on above: Order Comment: Speci men Type: BLOOD SPECIMENOrdering Facility: [facility] Address: [address] [place] [address] Result Comment: Refe rence ranges are not well established. Performed By: #### P ETH ####[facility]UP LABORATORIESCLIA [id number] [place] [address] PETH 16:0/18:1 (POPETH) 249 ng/mL Normal [facility] Comment on above: Order Comment: Speci men Type: BLOOD SPECIMENOrdering Facility: [facility] Address: [address] [place] [address] Result Comment: PEth 16:0/18:1 (POPEth)Less than 10 ng/mL............Not detectedLess than 20 ng/mL............Abstinence or light sfmtufxhmrniasdsic72 - 200 ng/mL................Moderate alcohol consumptionGreater than 200 ng/mL........Heavy alcohol consumption or chronicalcohol use(Reference: Ric Lujan and Bethel Long 2018 J. Forensic Sci) Performed By: #### P ETH ####[facility] HOSPITALIA [id number] [place] [address] PETH INTERPRETATION See Comment Normal [facility] Comment on above: Order Comment: Speci men Type: BLOOD SPECIMENOrdering Facility: [facility] Address: [address] [place] [address] [place] [address] Result Comment: Phos phatidylethanol (PEth) is a [...] was developed and its performance characteristicsdetermined by [facility]. It has not been cleared orapproved by the U.S. Food and Drug Administration. This test wasperformed in a CLIA-certified laboratory and is intended forclinical purposes.Performed By: [facility] [place], [place] [address]Lxvmjewnkf Director: Hugo Dsouza MD, PhDCLIA Number: [id number] Performed By: #### P ETH ####[facility]ORATORIESCLIA [id number] [place] [address] Phosphate SerPl-mCncon 05-29 Phosphate [Mass/Vol] 1.7 mg/dL Low 2.7-4.8 [facility] Comment on above: Order Comment: Speci men Type: BLOOD SPECIMENOrdering Facility: [facility] Address: [address] [place] [address] Performed By: #### 1 9123-9, 3084-1, 16591-1, 2777-1, 3016-3, 21548-3 ####[facility] LABORATORYCLIA [id number] [place] [address] [place] STAPHYLOCOCCUS AUREUS AND MR SA SCREEN, PCR, NASALon 05-29-2025 S. aureus and MRSA panel JAMESON+probe (Nose) Not detected Normal Not Detected [facility] Comment on above: Order Comment: Speci men Type: SWABOrdering Facility: [facility] Address: [address] [place] [address] Performed By: #### S APCR ####[facility] LABCLIA [id number] [place] [address] [place] Sodium ?Tm Ur-sCncon 025 Sodium Unsp time (U) [Moles/Vol] <20 Normal 14-216 [facility] Comment on above: Order Comment: Speci men Type: URINE SPECIMENOrdering Facility: [facility] Address: [address] [place] [address] Performed By: #### 3 5678-2 ####[facility] LABCLIA [id number] [place] [id number] [place] Sodium SerPl-sCncon 05-29-20 25 Sodium [Moles/Vol] 124 mmol/L Low 136-144 [facility] Comment on above: Order Comment: Speci men Type: BLOOD SPECIMENOrdering Facility: [facility] Address: [address] [place] [address] Performed By: #### 2 951-2 ####[facility] LABORATORYCLIA [id number] [place] [address] [place] Sodium [Moles/Vol] 121 mmol/L Low 136-144 [facility] Comment on above: Order Comment: Speci men Type: BLOOD SPECIMENOrdering Facility: [facility] Address: [address] [place], [place] [address] Performed By: #### 2 951-2 ####[facility] LABORATORYCLIA [id number] [place] [id number] [place] TSH SerPl-aCncon 05-29-2025 TSH Qn 0.975 m[IU]/L Normal 0.270-4.20 0 [facility] Comment on above: Order Comment: Speci men Type: BLOOD SPECIMENOrdering Facility: [facility] Address: [address] [place], [place] [address] Performed By: #### 1 9123-9, 3084-1, 99773-5, 2777-1, 3016-3, 68036-8 ####[facility] LABORATORYCLIA [id number] [place] [address] [place] US ABD RIGHT UPPER QUADRANTo n 05-29-2025 US ABD RIGHT UPPER QUADRANT Normal [facility] US ANKLE BRACHIAL INDICESon 05-29-2025 US ANKLE BRACHIAL INDICES Normal [facility] Urate SerPl-mCncon Urate [Mass/Vol] 2.4 mg/dL Low 2.5-6.6 [facility] Comment on above: Order Comment: Speci men Type: BLOOD SPECIMENOrdering Facility: [facility] Address: [address] [place], [place] [address] Performed By: #### 1 9123-9, 3084-1, 66487-3, 2777-1, 3016-3, 98718-1 ####[facility] LABORATORYCLIA [id number] [place] [id number] [facility] [place] VITAMIN B6/PYRIDOXINon 05-29 VITAMIN B6 6.4 nmol/L Low 20.0-125.0 [facility] Comment on above: Order Comment: Speci men Type: BLOOD SPECIMENOrdering Facility: [facility] Address: [address] [place] [address] Result Comment: INTE RPRETIVE INFORMATION: Vitamin B6 (Pyridoxal 5-Phosphate)Pyridoxal 5'-phosphate measured in a specimen collected followingan 8-hour or overnight fast accurately indicates vitamin I7hdokbdhaoqs status. Non-fasting specimen concentration reflectsrecent vitamin intake.This test was developed and its performance characteristicsdetermined by [facility]. It has not been cleared orapproved by the [place] Food and Drug Administration. This test wasperformed in a CLIA certified laboratory and is intended forclinical purposes.Performed By: [facility] [place] [id number] Director: Hugo Dsouza MD, PhDCLIA Number: [id number] Performed By: #### V ITB6 ####[facility] HOSPITALIA [id number] [place] [address] Zinc SerPl-ncon 05-29-2025 Zinc [Mass/Vol] 33 ug/dL Low 60-120 [facility] Comment on above: Order Comment: Speci men Type: BLOOD SPECIMENOrdering Facility: [facility] Address: [address] [place] [address] Result Comment: This test was developed, and its performance characteristics determined by the [facility] Department of Pathology and Laboratory Medicine. It has not been cleared or approved by the FDA. The [facility] Department of Pathology and Laboratory Medicine is regulated under CLIA as qualified to perform high-complexity testing. This test is used for clinical purposes. It should not be regarded as investigational or for research. Performed By: #### 5 763-8, COPPER ####[facility] LABCLIA [id number] [place] [id number] [place] CBC W Auto Differential pane l (Bld)on 05-28-2025 Basophils (Bld) [#/Vol] 10*3/uL Normal <0.11 [facility] Comment on above: Order Comment: Speci men Type: BLOOD SPECIMENOrdering Facility: [facility] Address: [address] [place] [address] Performed By: #### 5 7021-8 ####[facility] LABORATORYCLIA [id number] [place] [address] [place] Basophils/100 WBC (Bld) 0.3 % Normal [facility] Comment on above: Order Comment: Speci men Type: BLOOD SPECIMENOrdering Facility: [facility] Address: [address] [place] [address] Performed By: #### 5 7021-8 ####[facility] LABORATORYCLIA [id number] [place] [address] [place] Differential cell count method Nom (Bld) Auto Normal [facility] Comment on above: Order Comment: Speci men Type: BLOOD SPECIMENOrdering Facility: [facility] Address: [address] [place] [address] Performed By: #### 5 7021-8 ####[facility] LABORATORYCLIA [id number] [place] [address] [place] Eosinophils (Bld) [#/Vol] 10*3/uL Normal <0.46 [facility] Comment on above: Order Comment: Speci men Type: BLOOD SPECIMENOrdering Facility: [facility] Address: [address] [place] [address] Performed By: #### 5 7021-8 ####[facility] LABORATORYCLIA [id number] [address] [place] Eosinophils/100 WBC (Bld) 0.1 % Normal [facility] Comment on above: Order Comment: Speci men Type: BLOOD SPECIMENOrdering Facility: [facility] Address: [address] [place] [address] Performed By: #### 5 7021-8 ####[facility] LABORATORYCLIA [id number] [place] [address] [place] Erythrocyte distribution width (RBC) [Ratio] 15.3 % High 11.5-15.0 [facility] Comment on above: Order Comment: Speci men Type: BLOOD SPECIMENOrdering Facility: [facility] Address: [address] [place] [address] Performed By: #### 5 7021-8 ####[facility] LABORATORYCLIA [id number] [place] [address] [place] Hematocrit (Bld) [Volume fraction] 28.8 % Low 36.0-46.0 [facility] Comment on above: Order Comment: Speci men Type: BLOOD SPECIMENOrdering Facility: [facility] Address: [address] [place] [address] Performed By: #### 5 7021-8 ####[facility] LABORATORYCLIA [id number] [place] [address] [place] Hemoglobin (Bld) [Mass/Vol] 10.8 g/dL Low 11.5-15.5 [facility] Comment on above: Order Comment: Speci men Type: BLOOD SPECIMENOrdering Facility: [facility] Address: [address] [place] [address] Performed By: #### 5 7021-8 ####[facility] LABORATORYCLIA [id number] [place] [address] [place] Immature granulocytes (Bld) [#/Vol] 0.04 10*3/uL Normal <0.10 [facility] Comment on above: Order Comment: Speci men Type: BLOOD SPECIMENOrdering Facility: [facility] Address: [address] [place] [address] Performed By: #### 5 7021-8 ####[facility] LABORATORYCLIA [id number] [place] [address] [place] Immature granulocytes/100 WBC (Bld) 0.5 % Normal [facility] Comment on above: Order Comment: Speci men Type: BLOOD SPECIMENOrdering Facility: [facility] Address: [address] [place] [address] Performed By: #### 5 7021-8 ####[facility] LABORATORYCLIA [id number] [place] [address] [place] Lymphocytes (Bld) [#/Vol] 0.58 10*3/uL Low 1.00-4.00 [facility] Comment on above: Order Comment: Speci men Type: BLOOD SPECIMENOrdering Facility: [facility] Address: [address] [place] [address] Performed By: #### 5 7021-8 ####[facility] LABORATORYCLIA [id number] [address] Lymphocytes/100 WBC (Bld) 7.4 % Normal [facility] Comment on above: Order Comment: Speci men Type: BLOOD SPECIMENOrdering Facility: [facility] Address: [address] [place] [address] Performed By: #### 5 7021-8 ####[facility] LABORATORYCLIA [id number] [place] [address] [place] MCH (RBC) [Entitic mass] 38.7 pg High 26.0-34.0 [facility] Comment on above: Order Comment: Speci men Type: BLOOD SPECIMENOrdering Facility: [facility] Address: [address] [place] [address] Performed By: #### 5 7021-8 ####[facility] LABORATORYCLIA [id number] [address] [place] MCHC (RBC) [Mass/Vol] 37.5 g/dL High 30.5-36.0 [facility] Comment on above: Order Comment: Speci men Type: BLOOD SPECIMENOrdering Facility: [facility] Address: [address] [place] [address] Performed By: #### 5 7021-8 ####MCLAIN LABORATORYCLIA [id number] [address] MCV (RBC) [Entitic vol] 103.2 fL High 80.0-100.0 [facility] Comment on above: Order Comment: Speci men Type: BLOOD SPECIMENOrdering Facility: [facility] Address: [address] [place] [address] Performed By: #### 5 7021-8 ####MCLAIN LABORATORYCLIA [id number] [address] Monocytes (Bld) [#/Vol] 0.51 10*3/uL Normal <0.87 [facility] Comment on above: Order Comment: Speci men Type: BLOOD SPECIMENOrdering Facility: [facility] Address: [address] [place] [address] Performed By: #### 5 7021-8 ####MCLAIN LABORATORYCLIA [id number] [place] [address] [place] Monocytes/100 WBC (Bld) 6.5 % Normal [facility] Comment on above: Order Comment: Speci men Type: BLOOD SPECIMENOrdering Facility: [facility] Address: [address] [place] [address] Performed By: #### 5 7021-8 ####MCLAIN LABORATORYCLIA [id number] [place] [address] [place] Neutrophils (Bld) [#/Vol] 6.72 10*3/uL Normal 1.45-7.50 [facility] Comment on above: Order Comment: Speci men Type: BLOOD SPECIMENOrdering Facility: [facility] Address: [address] [place] [address] Performed By: #### 5 7021-8 ####MCLAIN LABORATORYCLIA [id number] [place] [address] [place] Neutrophils/100 WBC (Bld) 85.2 % Normal [facility] Comment on above: Order Comment: Speci men Type: BLOOD SPECIMENOrdering Facility: [facility] Address: [address] [place] [address] Performed By: #### 5 7021-8 ####MCLAIN LABORATORYCLIA [id number] [place] [address] [place] Nucleated RBC (Bld) [#/Vol] 10*3/uL Normal <0.01 [facility] Comment on above: Order Comment: Speci men Type: BLOOD SPECIMENOrdering Facility: [facility] Address: [address] [place] [address] Performed By: #### 5 7021-8 ####MCLAIN LABORATORYCLIA [id number] [place] [address] [place] Nucleated RBC/100 WBC (Bld) [Ratio] 0.0 /100 WBC Normal [facility] Comment on above: Order Comment: Speci men Type: BLOOD SPECIMENOrdering Facility: [facility] Address: [address] [place] [address] Performed By: #### 5 7021-8 ####MCLAIN LABORATORYCLIA [id number] [place] [address] [place] Platelet mean volume (Bld) [Entitic vol] 10.2 fL Normal 9.0-12.7 [facility] Comment on above: Order Comment: Speci men Type: BLOOD SPECIMENOrdering Facility: [facility] Address: [address] [place] [address] Performed By: #### 5 7021-8 ####MCLAIN LABORATORYCLIA [id number] [place] [address] [place] Platelets (Bld) [#/Vol] 134 10*3/uL Low 150-400 [facility] Comment on above: Order Comment: Speci men Type: BLOOD SPECIMENOrdering Facility: [facility] Address: [address] [place] [address] Performed By: #### 5 7021-8 ####MCLAIN LABORATORYCLIA [id number] [place] [address] [place] RBC (Bld) [#/Vol] 2.79 10*6/uL Low 3.90-5.20 [facility] Comment on above: Order Comment: Speci men Type: BLOOD SPECIMENOrdering Facility: [facility] Address: [address] [place] [address] Performed By: #### 5 7021-8 ####MCLAIN LABORATORYCLIA [id number] [place] [address] [place] WBC (Bld) [#/Vol] 7.88 10*3/uL Normal 3.70-11.00 [facility] Comment on above: Order Comment: Speci men Type: BLOOD SPECIMENOrdering Facility: [facility] Address: [address] [place] [address] Performed By: #### 5 7021-8 ####MCLAIN LABORATORYCLIA [id number] [place] [id number] [place] CRP SerPl-mCncon 05-28-2025 CRP [Mass/Vol] 9.5 mg/dL High <0.9 [facility] Comment on above: Order Comment: Speci men Type: BLOOD SPECIMENOrdering Facility: [facility] Address: [address] [place], [place] [address] Performed By: #### 1 988-5, 94005-8, TSHRF, 2276-4, 2951-2 ####MCLAIN LABORATORYCLIA [id number] [address] Comprehensive metabolic 2000 panelon 05-28-2025 Albumin [Mass/Vol] 3.1 g/dL Low 3.9-4.9 [facility] Comment on above: Order Comment: Speci men Type: BLOOD SPECIMENOrdering Facility: [facility] Address: [address] [place] [address] Performed By: #### 2 4323-8 ####MCLAIN LABORATORYCLIA [id number] [address] [place] ALP [Catalytic activity/Vol] 285 U/L High 34-123 [facility] Comment on above: Order Comment: Speci men Type: BLOOD SPECIMENOrdering Facility: [facility] Address: [address] [place] [address] Performed By: #### 2 4323-8 ####MCLAIN LABORATORYCLIA [id number] [address] STATES [facility] ALT [Catalytic activity/Vol] 18 U/L Normal 7-38 [facility] Comment on above: Order Comment: Speci men Type: BLOOD SPECIMENOrdering Facility: [facility] Address: [address] [place] [address] Performed By: #### 2 4323-8 ####MCLAIN LABORATORYCLIA [id number] [address] Anion gap [Moles/Vol] 14 mmol/L Normal 8-15 [facility] Comment on above: Order Comment: Speci men Type: BLOOD SPECIMENOrdering Facility: [facility] Address: [address] [place] [address] Performed By: #### 2 4323-8 ####MCLAIN LABORATORYCLIA [id number] [place] [address] [place] AST [Catalytic activity/Vol] Normal [facility] Comment on above: Order Comment: Speci men Type: BLOOD SPECIMENOrdering Facility: [facility] Address: [address] [place] [address] Result Comment: Unab le to assay due to interference from hemolysis. Suggest reorder as clinically indicated. Performed By: #### 2 4323-8 ####MCLAIN LABORATORYCLIA [id number] [place] [address] [place] Bilirubin [Mass/Vol] 6.9 mg/dL High 0.2-1.3 [facility] Comment on above: Order Comment: Speci men Type: BLOOD SPECIMENOrdering Facility: [facility] Address: [address] [place] [address] Performed By: #### 2 4323-8 ####MCLAIN LABORATORYCLIA [id number] [place] [address] [place] Calcium [Mass/Vol] 8.7 mg/dL Normal 8.5-10.2 [facility] Comment on above: Order Comment: Speci men Type: BLOOD SPECIMENOrdering Facility: [facility] Address: [address] [place] [address] Performed By: #### 2 4323-8 ####MCLAIN LABORATORYCLIA [id number] [place] [address] [place] Chloride [Moles/Vol] 82 mmol/L Low 98-107 [facility] Comment on above: Order Comment: Speci men Type: BLOOD SPECIMENOrdering Facility: [facility] Address: [address] [place] [address] Performed By: #### 2 4323-8 ####MCLAIN LABORATORYCLIA [id number] [place] [address] [place] CO2 [Moles/Vol] 27 mmol/L Normal 22-30 [facility] Comment on above: Order Comment: Speci men Type: BLOOD SPECIMENOrdering Facility: [facility] Address: [address] [place] [address] Performed By: #### 2 4323-8 ####MCLAIN LABORATORYCLIA [id number] [place] [address] [place] Creatinine [Mass/Vol] 0.64 mg/dL Normal 0.58-0.96 [facility] Comment on above: Order Comment: Speci men Type: BLOOD SPECIMENOrdering Facility: [facility] Address: [address] [place] [address] Performed By: #### 2 4323-8 ####AXIS LABORATORYCLIA [id number] [address] eGFRcr SerPlBld CKD-EPI 2020 93 mL/min/1.73m??? Normal >=60 [facility] Comment on above: Order Comment: Steve lemons Type: BLOOD SPECIMENOrdering Facility: [facility] Address: [address] [place] [address] Result Comment: Kaylyn mated Glomerular Filtration Rate [...] Performed By: #### 2 4323-8 ####MCLAIN LABORATORYCLIA [id number] [place] [address] [place] Glucose [Mass/Vol] 105 mg/dL High 74-99 [facility] Comment on above: Order Comment: Steve lemons Type: BLOOD SPECIMENOrdering Facility: [facility] Address: [address] [place] [address] Result Comment: The [place] [employer] (ADA) provides guidance for cutoff [...] Standards of Medical Care in Diabetes 2016, [place] [employer]. Diabetes Care. 2016.39(Suppl 1). Performed By: #### 2 4323-8 ####MCLAIN LABORATORYCLIA [id number] [place] [address] [place] Potassium [Moles/Vol] 3.2 mmol/L Low 3.7-5.1 [facility] Comment on above: Order Comment: Speci men Type: BLOOD SPECIMENOrdering Facility: [facility] Address: [address] [place] [address] Performed By: #### 2 4323-8 ####MCLAIN LABORATORYCLIA [id number] [place] [address] [place] Protein [Mass/Vol] 6.3 g/dL Normal 6.3-8.0 [facility] Comment on above: Order Comment: Speci men Type: BLOOD SPECIMENOrdering Facility: [facility] Address: [address] [place] [address] Performed By: #### 2 4323-8 ####MCLAIN LABORATORYCLIA [id number] [address] [place] Sodium [Moles/Vol] 123 mmol/L Low 136-144 [facility] Comment on above: Order Comment: Speci men Type: BLOOD SPECIMENOrdering Facility: [facility] Address: [address] [place] [address] Performed By: #### 2 4323-8 ####MCLAIN LABORATORYCLIA [id number] [place] [address] [place] Urea nitrogen [Mass/Vol] 9 mg/dL Normal 7-21 [facility] Comment on above: Order Comment: Speci men Type: BLOOD SPECIMENOrdering Facility: [facility] Address: [address] [place] [address] Performed By: #### 2 4323-8 ####MCLAIN LABORATORYCLIA [id number] [place] [address] [place] ED NOTEon 05-28-2025 ED NOTE HNO ID: [id number] Author: NAUN PARKER RN Service: Nursing Author Type: Registered Nurse Type: ED Notes Filed: 05/28/2025 17:49 Note Text: Second call to 2 south. [facility] ED NOTE HNO ID: [id number] Author: NAUN PARKER RN Service: Nursing Author Type: Registered Nurse Type: ED Notes Filed: 05/28/2025 17:32 Note Text: Heads up to 2 South at 1722 Normal [facility] ED PROV NOTEon 05-28-2025 ED PROV NOTE Normal [facility] ESR Westergren method (Bld) [Velocity]on 05-28-2025 ESR (Bld) [Velocity] 37 mm/h High 0-20 [facility] Comment on above: Order Comment: Speci men Type: BLOOD SPECIMENOrdering Facility: [facility] Address: [address] [place] [address] Performed By: #### 4 537-7 ####[facility] LABCLIA [id number] [place] [address] [place] Ferritin SerPl-mCncon 2024 Ferritin [Mass/Vol] 612.8 ng/mL High 14.7-205.1 [facility] Comment on above: Order Comment: Speci men Type: BLOOD SPECIMENOrdering Facility: [facility] Address: [address] [place] [address] Performed By: #### 1 988-5, 27118-2, TSHRF, 2276-4, 2951-2 ####AXIS LABORATORYCLIA [id number] [address] STATES OF [facility] HAV IgM Ser Qlon 05-28-2025 HAV IgM Ql (S) Negative Normal Negative [facility] Comment on above: Order Comment: Speci men Type: BLOOD SPECIMENOrdering Facility: [facility] Address: [address] [place] [address] Result Comment: No e vidence of recent infection with Hepatitis A virus. Performed By: #### 3 1204-1, 88767-1, 5195-3 ####[facility] LABCLIA [id number] [address] [place] HBV core IgM Ser Qlon 2024 HBV core IgM Ql (S) Negative Normal Negative [facility] Comment on above: Order Comment: Speci men Type: BLOOD SPECIMENOrdering Facility: [facility] Address: [address] [place] [address] Result Comment: No e vidence of recent infection with Hepatitis B virus. Should recent infection be suspected, repeat testing may be considered 3-4 weeks after this draw. Performed By: #### 3 1204-1, 91602-3, 5-3 ####[facility] LABCLIA [id number] [address] [address] [place] HBV surface Ag Ser Qlon 05-06 HBV surface Ag Ql (S) Negative Normal Negative [facility] Comment on above: Order Comment: Speci [facility] Type: BLOOD SPECIMENOrdering Facility: [facility] Address: [address] [place] [address] Performed By: #### 3 1204-1, 49423-2, 3 ####[facility] LABCLIA [id number] [place] [id number] [place] HCV Ab Ser Qlon 05-28-2025 HCV Ab Ql (S) Negative Normal Negative [facility] Comment on above: Order Comment: [facility] Type: BLOOD SPECIMENOrdering Facility: [facility] Address: [address] [place] [address] Result Comment: The result suggests no evidence of infection with Hepatitis C virus. Should recent infection be suspected, repeat testing may be considered 4-6 weeks after this draw. Performed By: #### 1 6128-1 ####[facility] LABCLIA [id number] [place] [id number] [place] HISTORY PHYSICALon HISTORY PHYSICAL Normal [facility] Hepatic function 2000 panelo n 05-28-2025 Albumin [Mass/Vol] 2.8 g/dL Low 3.9-4.9 [facility] Comment on above: Order Comment: Speci [facility] Type: BLOOD SPECIMENOrdering Facility: [facility] Address: [address] [place] [address] Performed By: #### 2 4325-3 ####AXIS LABORATORYCLIA [id number] [place] [address] [place] ALP [Catalytic activity/Vol] 246 U/L High 34-123 [facility] Comment on above: Order Comment: Speci men Type: BLOOD SPECIMENOrdering Facility: [facility] Address: [facility] [place] [address] Performed By: #### 2 4325-3 ####MCLAIN LABORATORYCLIA [id number] [place] [address] [place] ALT [Catalytic activity/Vol] 15 U/L Normal 7-38 [facility] Comment on above: Order Comment: Speci men Type: BLOOD SPECIMENOrdering Facility: [facility] Address: [address] [place] [address] Performed By: #### 2 4325-3 ####MCLAIN LABORATORYCLIA [id number] [place] [address] [facility] AST [Catalytic activity/Vol] 53 U/L High 13-35 [facility] Comment on above: Order Comment: Speci men Type: BLOOD SPECIMENOrdering Facility: [facility] Address: [address] [place] [address] Performed By: #### 2 4325-3 ####MCLAIN LABORATORYCLIA [id number] [place] [address] [place] Bilirubin [Mass/Vol] 6.3 mg/dL High 0.2-1.3 [facility] Comment on above: Order Comment: Speci men Type: BLOOD SPECIMENOrdering Facility: [facility] Address: [address] [place] [address] Performed By: #### 2 4325-3 ####MCLAIN LABORATORYCLIA [id number] [place] [id number] [place] Bilirubin.conjugated [Mass/Vol] 3.9 mg/dL High <0.3 [facility] Comment on above: Order Comment: Speci men Type: BLOOD SPECIMENOrdering Facility: [facility] Address: [address] [place] [address] Performed By: #### 2 4325-3 ####MCLAIN LABORATORYCLIA [id number] [place] [address] [place] Protein [Mass/Vol] 5.6 g/dL Low 6.3-8.0 [facility] Comment on above: Order Comment: Speci men Type: BLOOD SPECIMENOrdering Facility: [facility] Address: [address] [place] [address] Performed By: #### 2 4325-3 ####AXIS LABORATORYCLIA [id number] [place] [address] [place] Iron and Iron binding capaci ty panelon 05-28-2025 Iron [Mass/Vol] 40 ug/dL Low 41-186 [facility] Comment on above: Order Comment: Speci men Type: BLOOD SPECIMENOrdering Facility: [facility] Address: [address] [place] [address] Performed By: #### 1 988-5, 75089-9, [facility], 2275-4, 2951-2 ####AXIS LABORATORYCLIA [id number] [address] [place] Iron binding capacity [Mass/Vol] 128 ug/dL Low 232-386 [facility] Comment on above: Order Comment: Speci men Type: BLOOD SPECIMENOrdering Facility: [facility] Address: [address] [place] [address] Performed By: #### 1 988-5, 46063-9, [facility], 6-4, 2951-2 ####AXIS LABORATORYCLIA [id number] [address] [place] Iron/TIBC [Molar ratio] 31.3 % Normal 15.0-57.0 [facility] Comment on above: Order Comment: Speci men Type: BLOOD SPECIMENOrdering Facility: [facility] Address: [address] [place] [address] Performed By: #### 1 988-5, 05002-9, [facility], 6-4, 2951-2 ####AXIS LABORATORYCLIA [id number] [address] [place] Lactate (Bld) [Moles/Vol]on 05-28-2025 Lactate [Moles/Vol] 2.4 mmol/L High 0.5-2.2 [facility] Comment on above: Order Comment: Speci men Type: BLOOD SPECIMENOrdering Facility: [facility] Address: [address] [place] [address] Performed By: #### 3 2693-4 ####MCLAIN LABORATORYCLIA [id number] [place] [address] [place] Osmolality SerPlon Osmolality [Osmolality] 259 mosm/kg Low 275-300 [facility] Comment on above: Order Comment: Steve lemons Type: BLOOD SPECIMENOrdering Facility: [facility] Address: [address] [place] [address] Performed By: #### 2 692-2 ####[facility] LABCLIA [id number] [place] [address] [place] PT panel Coag (PPP)on 2024 INR Coag (PPP) [Relative time] 1.3 {INR} Normal 0.9-1.3 [facility] Comment on above: Order Comment: Steve lemons Type: BLOOD SPECIMENOrdering Facility: [facility] Address: [address] [place] [address] Result Comment: Arlene min K Antagonist (VKA) Therapeutic Range: INR 2 to 3 (Target INR of 2.5)Note: For patients treated with VKA drugs, such as warfarin, the [place] [employer] 2012 Guideline recommends [...] al. Chest 2012, 141:7S-47SPeter STRATTON, et al. [facility] 2017, 70: 252-289 Performed By: #### 3 4528-0 ####MCLAIN LABORATORYCLIA [id number] [address] [place] PT Coag (PPP) [Time] 13.4 s High 9.7-13.0 [facility] Comment on above: Order Comment: Speci men Type: BLOOD SPECIMENOrdering Facility: [facility] Address: [address] [place] [address] Performed By: #### 3 4528-0 ####AXIS LABORATORYCLIA [id number] [address] [place] SEPSIS LACTATE W/ REFLEX (IN ITIAL)on 05-28-2025 Lactate [Moles/Vol] 2.2 mmol/L High 0.5-2.0 [facility] Comment on above: Order Comment: Speci men Type: BLOOD SPECIMENOrdering Facility: [facility] Address: [address] [place] [address] Performed By: #### S LACTR ####AXIS LABORATORYCLIA [id number] [address] SEPSIS LACTATE W/ REFLEX (SE COND)on 05-28-2025 Lactate [Moles/Vol] 1.5 mmol/L Normal 0.5-2.0 [facility] Comment on above: Order Comment: Speci men Type: BLOOD SPECIMENOrdering Facility: [facility] Address: [address] [place] [address] Performed By: #### S LACT2 ####AXIS LABORATORYCLIA [id number] [address] [place] Sodium SerPl-sCncon 05-28-20 25 Sodium [Moles/Vol] 124 mmol/L Low 136-144 [facility] Comment on above: Order Comment: Speci men Type: BLOOD SPECIMENOrdering Facility: [facility] Address: [address] [place] [address] Performed By: #### 1 988-5, 07806-4, TSHRF, 2276-4, 2951-2 ####MCLA[facility] LABORATORYCLIA [id number] [address] [place] TSH W/REFLEX FT4on TSH Qn 1.160 m[IU]/L Normal 0.270-4.20 0 [facility] Comment on above: Order Comment: Speci men Type: BLOOD SPECIMENOrdering Facility: [facility] Address: [address] [place] [address] Performed By: #### 1 988-5, 99525-4, TSHRF, 2276-4, 2951-2 ####AXIS LABORATORYCLIA [id number] [place] [address] [place] Bacteria Wnd Culton 05-27-20 25 Bacteria identified Cx Nom (Wound) Abnormal [facility] Comment on above: Performed By: #### 6 462-6 ####[facility] LABCLIA [id number] [place] [address] [place] Bacteria identified Cx Nom (Wound) ORGANISM ID: 1 Many Pseudomonas aeruginosa Refer to specimen collected on 05/27/2025 at 1557 [[id number]] ORGANISM ID: 3 Rare skin mikhail GRAM STAIN: Many Gram negative bacilli Rare Gram positive cocci Rare Polymorphonuclear leukocytes Abnormal [facility] Comment on above: Performed By: #### 6 462-6 ####[facility] LABCLIA [id number] [address] [place] CNOVon 05-27-2025 CNOV Normal [facility] CNTHERAPYon 05-27-2025 CNTHERAPY Normal [facility] CNPNon 05-23-2025 CNPN [facility] Anion gap in Serum or Plasma Ordered By: Solo Calderón on 05-21-2025 Anion gap [Moles/Vol] 13 mmol/L - [facility] BUN/creatinine ratioOrdered By: Solo Calderón on 05-21-2025 Urea nitrogen/Creatinine [Mass ratio] 12.2 mg/mg - [facility] Bilirubin, totalOrdered By: Solo Calderón on 05-21-2025 Bilirubin [Mass/Vol] 5.09 mg/dL High 0.00-1.30 [facility] Carbon dioxide, total [Moles /volume] in Central venous bloodOrdered By: Solo Calderón on 05-21-2025 CO2 [Moles/Vol] 28.3 mmol/L 21.0-32.0 [facility] Chloride assayOrdered By: Anirudh tthew Constantinet on 05-21-2025 Chloride [Moles/Vol] 83 mmol/L Low 98-108 [facility] Comprehensive Metabolic Prof ilon 05-21-2025 Albumin [Mass/Vol] 3.2 g/dL Low 3.4-4.8 [facility] Comment on above: Performed By: #### L 501.4405, L100.0100, L501.1105 #### [facility] [address] [place], [address] Albumin/Globulin [Mass ratio] 1.1 {ratio} Normal 0.9-2.4 [facility] Comment on above: Performed By: #### L 501.4405, L100.0100, L501.1105 #### [facility] [address] [place], [address] ALK PHOS 284 U/L High 35-104 [facility] Comment on above: Performed By: #### L 501.4405, L100.0100, L501.1105 #### [facility] [address] [place], [address] ALT [Catalytic activity/Vol] 18 U/L Normal <=34 [facility] Comment on above: Performed By: #### L 501.4405, L100.0100, L501.1105 #### [facility] [address] [place], [address] AST [Catalytic activity/Vol] 62 U/L High <=31 [facility] Comment on above: Performed By: #### L 501.4405, L100.0100, L501.1105 #### [facility] [address] [place], [address] Bilirubin [Mass/Vol] 5.09 mg/dL High 0.00-1.30 [facility] Comment on above: Performed By: #### L 501.4405, L100.0100, L501.1105 #### [facility] [address] [place], [address] BUN/CRE 12.2 RATIO Normal 10-20 [facility] Comment on above: Performed By: #### L 501.4405, L100.0100, L501.1105 #### [facility] [facility] [address] [place], [address] Calcium [Mass/Vol] 9.4 mg/dL Normal 7.6-11.0 [facility] Comment on above: Performed By: #### L 501.4405, L100.0100, L501.1105 #### [facility] [address] [place], [address] Chloride [Moles/Vol] 83 mmol/L Low 98-108 [facility] Comment on above: Performed By: #### L 501.4405, L100.0100, L501.1105 #### [facility] [address] [place], [address] CO2 [Moles/Vol] 28.3 mmol/L Normal 21.0-32.0 [facility] Comment on above: Performed By: #### L 501.4405, L100.0100, L501.1105 #### [facility] [address] [place], [address] Creatinine [Mass/Vol] 0.72 mg/dL Normal 0.70-1.20 [facility] Comment on above: Result Comment: Icte norris present, Results may be affected. Performed By: #### L 501.4405, L100.0100, L501.1105 #### [facility] [address] [place], [address] GAP 13 Normal 5-15 [facility] Comment on above: Performed By: #### L 501.4405, L100.0100, L501.1105 #### [facility] [address] [place], [address] GFR/1.73 sq M.predicted among non-blacks MDRD (S/P/Bld) [Vol rate/Area] 88 mL/min/{1.73_m2} Normal >60 [facility] Comment on above: Result Comment: mL/m in/1.73m2 CKD-EPI Creatinine Equation (2020) Performed By: #### L 501.4405, L100.0100, L501.1105 #### [facility] [address] [place], [address] Globulin (S) [Mass/Vol] 2.9 g/dL Normal 2.2-4.2 [facility] Comment on above: Performed By: #### L 501.4405, L100.0100, L501.1105 #### [facility] [address] [place], [address] Glucose [Mass/Vol] 117 mg/dL High 70-99 [facility] Comment on above: Performed By: #### L 501.4405, L100.0100, L501.1105 #### [facility] [address] [place], [address] Potassium [Moles/Vol] 3.7 mmol/L Normal 3.3-5.1 [facility] Comment on above: Performed By: #### L 501.4405, L100.0100, L501.1105 #### [facility] [address] [place], [address] Sodium [Moles/Vol] 124 mmol/L Low 133-145 [facility] Comment on above: Performed By: #### L 501.4405, L100.0100, L501.1105 #### [facility] [address] [place], [address] T PROT 6.1 g/dL Normal 5.9-8.4 [facility] Comment on above: Performed By: #### L 501.4405, L100.0100, L501.1105 #### [facility] [address] [place], [address] Urea nitrogen [Mass/Vol] 9 mg/dL Normal 4-19 [facility] Comment on above: Performed By: #### L 501.4405, L100.0100, L501.1105 #### [facility] [address] [place], [address] Glomerular filtration rate ( GFR) estimation/1.73 sq m using serum, plasma, or whole bOrdered By: Solo Calderón on 05-21-2025 GFR/1.73 sq M.predicted among non-blacks MDRD (S/P/Bld) [Vol rate/Area] 88 mL/min/{1.73_m2} >60 [facility] Comment on above: mL/min/1.73m2 CKD-EP I Creatinine Equation (2020) Internal Medicine Office Vis iton 05-21-2025 Internal Medicine Office Visit [facility] [address] [place] [address] OFFICE VISIT Date of Service: 05/21/25 MR#: [id number] Acct: [id number] Name: MARY ALICE GA Rep #: [id number] : 1950 Provider: JIMMY Mohamud Age/Sex: 74/F [place] [facility] Status: Signed with Addenda ADDENDUM by Cleopatra Steen on 05/21/25 at 1640 Office Procedure Documentation entered by Cleopatra Steen 05/21/25 16:40: Injections Is this a patient provided medication?: No Office Meds Prolia 60 mg/mL subcutaneous syringe Performing Provider: Khanh Rodriguez MD Performing Location: [facility] Administered by: Cleopatra Steen on 05/21/25 16:38 Dose Route Admin Location Dispensed Lot Number Expiration Date Package NDC NDC Informatics Specialist 60 mg subcut erickson 1 mL [id number] 11/02/27 01212-561-57 [id number] AMGEN Comments: patient tolerated Prolia well, sat [...] Reasons: Lab. Prolia-$0 Chief Complaint: discuss prolia Visualizer Required: No Accompanied by: Self Is patient [...] culture a (more content not included)... Normal [facility] - Chemistry and C hemistry - challengeOrdered By: Solo Calderón on 05-21-2025 AST [Catalytic activity/Vol] 62 U/L High <32 [facility] Natriuretic peptide.B prohor lynsey N-Terminal [Mass/volume] in Serum or PlasmaOrdered By: Solo Calderón on 05-21-2025 Natriuretic peptide.B prohormone N-Terminal [Mass/Vol] 613 pg/mL <900 [facility] Comment on above: Heart Failure Unlike ly: < 300 pg/mLHeart Failure Likely< 50 Years: > 450 pg/mL50-75 Years: > 900 pg/mL>75 Years: > 1800 pg/mL Potassium measurement (mass/ volume)Ordered By: Solo Calderón on 05-21-2025 Potassium (Unsp spec) [Mass/Vol] 3.7 mmol/L 3.3-5.1 [facility] Pro- Brain NATRIURETIC PEPTI Caleb 05-21-2025 Natriuretic peptide B (Bld) [Mass/Vol] 613 pg/mL Normal <=900 [facility] Comment on above: Result Comment: Hear t Failure Unlikely: < 300 pg/mL Heart Failure Likely < 50 Years: > 450 pg/mL 50-75 Years: > 900 pg/mL >75 Years: > 1800 pg/mL Performed By: #### L 501.4405, L100.0100, L501.1105 #### [facility] [address] [place], [place], [address] Serum creatinine measurement (mass/volume)Ordered By: Solo Calderón on 05-21-2025 Creatinine [Mass/Vol] 0.72 mg/dL 0.70-1.20 [facility] Comment on above: Icterus present, Res ults may be affected. Serum globulin measurementOr dered By: Solo Calderón on 05-21-2025 Globulin (S) [Mass/Vol] 2.9 g/dL 2.2-4.2 [facility] Serum glucose measurement (m ass/volume)Ordered By: Solo Calderón on 05-21-2025 Glucose [Mass/Vol] 117 mg/dL High 70-99 [facility] Serum or plasma alanine gibbs otransferase (ALT) measurementOrdered By: Solo Calderón on 05-21-2025 ALT [Catalytic activity/Vol] 18 U/L <35 [facility] Serum or plasma albumin seth urement (mass/volume)Ordered By: Solo Calderón on 05-21-2025 Albumin [Mass/Vol] 3.2 g/dL Low 3.4-4.8 [facility] Serum or plasma albumin/glob ulin mass ratioOrdered By: Solo Calderón on 05-21-2025 Albumin/Globulin [Mass ratio] 1.1 {ratio} 0.9-2.4 [facility] Serum or plasma alkaline miguel sphatase measurementOrdered By: Solo Calderón on 05-21-2025 ALP [Catalytic activity/Vol] 284 U/L High 35-104 [facility] Serum or plasma calcium seth urement (mass/volume)Ordered By: Solo Calderón on 05-21-2025 Calcium [Mass/Vol] 9.4 mg/dL 7.6-11.0 [facility] Serum or plasma urea nitroge n measurement (mass/volume)Ordered By: Solo Calderón on 05-21-2025 Urea nitrogen [Mass/Vol] 9 mg/dL 4-19 [facility] Sodium levelOrdered By: Atul Calderón on 05-21-2025 Sodium [Moles/Vol] 124 mmol/L Low 133-145 [facility] TSH DL <= 0.005 mIU/L QnOrde red By: Solo Calderón on 05-21-2025 TSH Qn 1.730 uIU/mL 0.300-4.20 0 [facility] Thyroid Stim Hormone (TSH)on 05-21-2025 TSH 1.730 uIU/mL Normal 0.300-4.20 0 [facility] Comment on above: Performed By: #### L 501.4405, L100.0100, L501.1105 #### [facility] [place], [address] Total proteinOrdered By: David Calderón on 05-21-2025 Protein [Mass/Vol] 6.1 g/dL 5.9-8.4 [facility] Bacteria Wnd Culton 05-20-20 25 Bacteria identified Cx Nom (Wound) Abnormal [facility] Comment on above: Performed By: #### 6 462-6 ####[facility] LABCLIA [id number] [place] [id number] [place] CNTHERAPYon 05-20-2025 CNTHERAPY Normal [facility] Magnetic resonance imaging r eportOrdered By: Naun Jenkins on 05-14-2025 Study report [facility] Imaging Services [address] [place], [place] [address] Spine Lumbar (Routine) MR#: [id number] Acct: [id number] Name: MARY ALICE GA Rep #: [id number] : 1950 F 74 From: Anup Jenkins MD PCP: Dr. Khanh Rodriguez MD Status: R EG CLI Study:Spine Lumbar (Routine) Date of Exam: 05/13/25 Exam# [id number] Ordering Dr: Deejay Lopez PROCEDURE: SPINE LUMBAR [...] Severe facet arthropathyand ligamentum flavum hypertrophy with nsdi-hf-gmeptzfa central stenosis. Mild bilateral foraminal encroachment. L5-S1: Degenerative disc disease and diffuse bulge with bilateral foraminal encroachment wsjdb-djrrnlm-gxrr-left. Severe facet arthropathy savzr-eqjhler-avkd-left. Sacrum: Visible SI joints and sacrum appear [...] the exiting right L5 nerve. Reading Location: [facility] CC: JIMMY Dawson; Dr. Khanh Rodriguez MD ~ Airplane Technician: Signed [facility] CNTHERAPYon 05-13-2025 CNTHERAPY Normal [facility] Spine Lumbar (Routine)on Spine Lumbar (Routine) [facility] Imaging Services [address] [place], [place] [id number] Spine Lumbar (Routine) MR#: [id number] Acct: [id number] Name: MARY ALICE GA Rep #: [id number] : 1950 F 74 From: Naun cartagena MD PCP: Dr. Khanh Rodriguez MD Status: REG CLI Study: Spine Lumbar (Routine) Date of Exam: 05/13/25 Exam# [id number] Ordering Dr: Tracy Lopez PROCEDURE: SPINE LUMBAR [...] facet arthropathy and ligamentum flavum hypertrophy with mnwg-td-lfkfolhh central stenosis. Mild bilateral foraminal encroachment. L5-S1: Degenerative disc disease and diffuse bulge with bilateral foraminal encroachment fcwnt-sgtqstt-jvhw-left. Severe facet arthropathy xlfjz-lxirafu-kxvp-left. Sacrum: Visible SI joints and sacrum appear [...] the exiting right L5 nerve. Reading Location: [facility] CC: JIMMY Dawson; Dr. Khanh Rodriguez MD Airplane Technician: Signed Normal [facility] L/S Spine Min 4 Viewson L/S Spine Min 4 Views [facility] Imaging Services [address] [place] [address] L/S Spine Min 4 Views MR#: [id number] Acct: [id number] Name: MARY ALICE GA Rep #: [id number] : 1950 F 74 From: Reggie Lopez MD PCP: Dr. Khanh Rodriguez MD Status: DEP AMB Study: L/S Spine Min 4 Views Date of Exam: 05/08/25 Exam# [id number] Ordering Dr: Tracy Lopez PROCEDURE: L/S SPINE [...] similar to the previous study. Reading [facility] CC: JIMMY Dawson; Dr. Khanh Rodriguez MD Airplane Technician: Signed Normal [facility] Orthopedic Visit Reporton Orthopedic Visit Report [facility] [address] [place] [address] OFFICE VISIT Date of Service: 05/08/25 MR#: [id number] Acct: [id number] Name: MARY ALICE GA Rep #: [id number] : 1950 Provider: JIMMY Dawson Age/Sex: 74/F Location[place] [facility] [place] Status: Signed Intake Vital Signs 04/25/25 13:01 [...] that she was previously seen by a medical front desk specialist in [place] Dr. Quoc SCHMITT in [place] as she goes there during the coreas. She states that she did have a kyphoplasty with him in July of 2024 for a compression fracture from T12-L2. [place]ruff a lot better after the kyphoplasty. She [...] is being treated for the wound at [facility] in [place] and it is healing but has been [...] for long di (more content not included)... [facility] iton 04-29-2025 Internal Medicine Office Visit [facility] [address] [place] [address] [place] [address] OFFICE VISIT Date of Service: 04/29/25 MR#: [id number] Acct: [id number] Name: MARY ALICE GA Rep #: [id number] : 1950 Provider: SAMUEL paulson Age/Sex: 74/F Location[place] [facility] Status: Signed Intake Vital Signs 04/25/25 13:01 [...] approximately th (more content not included)... Normal [facility] 04-28-2025 [facility]APY [facility] 04-22-2025 [facility] 04-15-2025 CNTHERAPY [facility] CNOVon 04-08-2025 CNOV [facility] 04-08-2025 CNTHERAPY [facility] [id number] 04-01-2025 [id number] [facility] 04-01-2025 [facility]Y [facility] 03-25-2025 [facility] 03-19-2025 [facility] 03-11-2025 CNTHERAPY Normal [facility] CNTHERAPYon 03-03-2025 CNTHERAPY Normal [facility] CNOVon 02-25-2025 CNOV Normal [facility] Absolute lymphocyte countOrd ered By: Nayan Hernandezni on 02-24-2025 Lymphocytes Auto (Unsp spec) [#/Vol] 0.74 10*3/uL Low 0.83-4.51 [facility] Absolute neutrophil countOrd ered By: Nayan Blackmon on 02-24-2025 Neutrophils (Bld) [#/Vol] 2.1 10*3/uL 2.0-7.7 [facility] Alanine Aminotransferas (SGP T)on 02-24-2025 ALT [Catalytic activity/Vol] 30 U/L Normal <=34 [facility] Comment on above: Performed By: #### L 501.4405, L100.0100, L501.1105 #### [facility] [address] [place], [place], [id number] Automated lymphocyte count a s percentage of total leukocytesOrdered By: Nayan Blackmon on 02-24-2025 Lymphocytes/100 WBC Auto (Unsp spec) 21.1 % 19-41 [facility] Basophil percentageOrdered B y: Nayansudha Hernandezni on 02-24-2025 Basophils/100 WBC (Bld) 1.1 % High 0-1 [facility] Blood manual differential co mment interpretation (narrative result)Ordered By: Nayan Blackmon on 02-24-2025 Manual differential comment Emir (Bld) [Interp] SCANNED [facility] CBC W/Diff, Automatedon 02-03 PLT EST MOD DEC Normal ADEQ [facility] Comment on above: Performed By: #### L 501.4405, L100.0100, L501.1105 #### [facility] [address] [place], [address] SMEAR COMMENT SCANNED Normal [facility] Comment on above: Performed By: #### L 501.4405, L100.0100, L501.1105 #### [facility] [address] [place], [address] CNTHERAPYon 02-24-2025 CNTHERAPY Normal [facility] Eosinophil percentageOrdered By: Nayan Blackmon on 02-24-2025 Eosinophils/100 WBC (Bld) 7.1 % High 0-5 [facility] Erythrocyte distribution wid th ratioOrdered By: Nayan Blackmon on 02-24-2025 Erythrocyte distribution width (RBC) [Ratio] 13.6 % 11.6-14.6 [facility] Erythrocyte distribution wid th standard deviationOrdered By: Nayan Blackmon on 02-24-2025 Erythrocyte distribution width (RBC) [Ratio] 51.1 fl High 35.1-43.9 [facility] Glomerular filtration rate ( GFR) estimation/1.73 sq m using serum, plasma, or whole bOrdered By: Nayan Blackmon on 02-24-2025 GFR/1.73 sq M.predicted among non-blacks MDRD (S/P/Bld) [Vol rate/Area] 99 mL/min/{1.73_m2} >60 [facility] Comment on above: mL/min/1.73m2 CKD-EP I Creatinine Equation (2020) Hematocrit Auto (Bld) [Volum e fraction]Ordered By: Nayan Blackmon on 02-24-2025 Hematocrit (Bld) [Volume fraction] 29.9 % Low 37-47 [facility] Hemoglobin measurementOrdere d By: Nayan Blackmon on 02-24-2025 Hemoglobin (Bld) [Mass/Vol] 10.8 g/dL Low 12.0-15.0 [facility] Immature granulocytes/100 WB C Auto (Bld)Ordered By: Nayan Blackmon on 02-24-2025 Immature granulocytes/100 WBC (Bld) 0.300 % 0.0-0.9 [facility] Comment on above: IG% - Immature Granu locytes (promyelocytes, myelocytes and metamyelocytes) > 1% indicates that a LEFT SHIFT is Present. MCV (mean corpuscular volume ) determinationOrdered By: Nayan Blackmon on 02-24-2025 MCV (RBC) [Entitic vol] 102.0 fL High 81-99 [facility] Mean corpuscular hemoglobin (MCH) determinationOrdered By: Nayan Blackmon on 02-24-2025 MCH (RBC) [Entitic mass] 36.9 pg High 27.0-32.0 [facility] Mean corpuscular hemoglobin concentration (MCHC) determinationOrdered By: Nayan Blackmon on 02-24-2025 MCHC (RBC) [Mass/Vol] 36.1 g/dL High 32-36 [facility] Mean platelet volume determi nationOrdered By: Nayan Blackmon on 02-24-2025 Platelet mean volume (Bld) [Entitic vol] 9.8 fL 6.2-12.0 [facility] Monocyte percentageOrdered B y: Nayan Blackmon on 02-24-2025 Monocytes/100 WBC (Bld) 11.7 % High 0-10 [facility] Neutrophil percentageOrdered By: Nyaan Blackmon on 02-24-2025 Neutrophils/100 WBC (Bld) 58.7 % 47-70 [facility] Nucleated red blood cell per centageOrdered By: Nayan Blackmon on 02-24-2025 Nucleated RBC/100 WBC (Bld) [Ratio] 0 % 0-5 [facility] Platelet countOrdered By: Ra rodney Blackmon on 02-24-2025 Platelets (Bld) [#/Vol] 89 10*3/uL Low 150-450 [facility] Platelet estimateOrdered By: Nayan Blackmon on 02-24-2025 Platelets LM Ql (Bld) MOD DEC ADEQ [facility] RBC Auto (Bld) [#/Vol]Ordere d By: Nayan Blackmon on 02-24-2025 RBC (Bld) [#/Vol] 2.93 10*6/uL Low 4.2-5.4 [facility] Serum Creatinine AND GFRon 0 02-24-2025 Creatinine [Mass/Vol] 0.50 mg/dL Low 0.70-1.20 [facility] Comment on above: Performed By: #### L 501.4405, L100.0100, L501.1105 #### [facility] [facility] [place], [address] GFR/1.73 sq M.predicted among non-blacks MDRD (S/P/Bld) [Vol rate/Area] 99 mL/min/{1.73_m2} Normal >60 [facility] Comment on above: Result Comment: mL/m in/1.73m2 CKD-EPI Creatinine Equation (2020) Performed By: #### L 501.4405, L100.0100, L501.1105 #### [facility] [address] [place], [address] Serum creatinine measurement (mass/volume)Ordered By: Nayan Blackmon on 02-24-2025 Creatinine [Mass/Vol] 0.50 mg/dL Low 0.70-1.20 [facility] Serum or plasma alanine gibbs otransferase (ALT) measurementOrdered By: Nayan Blackmon on 02-24-2025 ALT [Catalytic activity/Vol] 30 U/L <35 [facility] White blood cell (WBC) count Ordered By: Nayan Blackmon on 02-24-2025 WBC (Bld) [#/Vol] 3.5 10*3/uL Low 4.4-11.0 [facility] NURSING PROGon 02-18-2025 NURSING PROG [facility] CNPNon 02-17-2025 CNPN [facility] CNTHERAPYon 02-17-2025 CNTHERAPY Normal [facility] CNOVon 02-11-2025 CNOV [facility] CNTHERAPYon 02-10-2025 CNTHERAPY Normal [facility] CNTHERAPYon 02-03-2025 CNTHERAPY [facility] Bacteria Wnd Culton 01-29-20 25 Bacteria identified Cx Nom (Wound) Abnormal [facility] Comment on above: Performed By: #### 6 462-6 ####[facility] LABCLIA [id number] [address] [facility] CNTHERAPYon 01-28-2025 CNTHERAPY Normal [facility] Absolute lymphocyte countOrd ered By: Nabeel Patel on 01-23-2025 Lymphocytes Auto (Unsp spec) [#/Vol] 1.69 10*3/uL 0.83-4.51 [facility] Absolute neutrophil countOrd ered By: Manstresa Patel on 01-23-2025 Neutrophils (Bld) [#/Vol] 2.6 10*3/uL 2.0-7.7 [facility] Anion gap in Serum or Plasma Ordered By: Nabeel Patel on 01-23-2025 Anion gap [Moles/Vol] 16 mmol/L High 5-15 [facility] Automated lymphocyte count a s percentage of total leukocytesOrdered By: Nabeel Patel on 01-23-2025 Lymphocytes/100 WBC Auto (Unsp spec) 33.3 % - [facility] BUN/creatinine ratioOrdered By: [facility] Amanda on 01-23-2025 Urea nitrogen/Creatinine [Mass ratio] 16.4 mg/mg 10- [facility] Basophil percentageOrdered B y: Nabeel Patel on 01-23-2025 Basophils/100 WBC (Bld) 0.8 % 0-1 [facility] Bilirubin, totalOrdered By: Nabeel Patel on 01-23-2025 Bilirubin [Mass/Vol] 2.33 mg/dL High 0.00-1.30 [facility] CBC W/Diff, Automatedon 01-03 Absolute Lymph 1.69 X10 3/uL Normal 0.83-4.51 [facility] Comment on above: Performed By: #### L 500.4050, L100.0100 #### [facility] [address] [place], [address] Absolute Neut 2.6 X10 3/uL Normal 2.0-7.7 [facility] Comment on above: Performed By: #### L 500.4050, L100.0100 #### [facility] [address] [place], [address] Basophils/100 WBC (Bld) 0.8 % Normal 0-1 [facility] Comment on above: Performed By: #### L 500.4050, L100.0100 #### [facility] [address] [place], [address] Eosinophils/100 WBC (Bld) 0.6 % Normal 0-5 [facility] Comment on above: Performed By: #### L 500.4050, L100.0100 #### [facility] [address] [place], [address] Erythrocyte distribution width (RBC) [Ratio] 13.7 % Normal 11.6-14.6 [facility] Comment on above: Performed By: #### L 500.4050, L100.0100 #### [facility] [address] [place], [address] Hematocrit (Bld) [Volume fraction] 35.4 % Low 37-47 [facility] Comment on above: Performed By: #### L 500.4050, L100.0100 #### [facility] [address] [place], [address] Hemoglobin (Bld) [Mass/Vol] 12.8 g/dL Normal 12.0-15.0 [facility] Comment on above: Performed By: #### L 500.4050, L100.0100 #### [facility] [address] [place], [address] IG% 0.400 Normal 0.0-0.9 [facility] Comment on above: Result Comment: IG% - Immature Granulocytes (promyelocytes, myelocytes and metamyelocytes) > 1% indicates that a LEFT SHIFT is Present. Performed By: #### L 500.4050, L100.0100 #### [facility] [address] [place], [address] Lymphocytes/100 WBC (Bld) 33.3 % Normal 19-41 [facility] Comment on above: Performed By: #### L 500.4050, L100.0100 #### [facility] [address] [place], [address] MCH (RBC) [Entitic mass] 36.1 pg High 27.0-32.0 [facility] Comment on above: Performed By: #### L 500.4050, L100.0100 #### [facility] [address] [place], [address] MCHC (RBC) [Mass/Vol] 36.2 g/dL High 32-36 [facility] Comment on above: Performed By: #### L 500.4050, L100.0100 #### [facility] [address] [place], [address] MCV (RBC) [Entitic vol] 99.7 fL High 81-99 [facility] Comment on above: Performed By: #### L 500.4050, L100.0100 #### [facility] [address] [place], [address] Monocytes/100 WBC (Bld) 13.2 % High 0-10 [facility] Comment on above: Performed By: #### L 500.4050, L100.0100 #### [facility] [address] [place], [address] Neutrophils/100 WBC (Bld) 51.7 % Normal 47-70 [facility] Comment on above: Performed By: #### L 500.4050, L100.0100 #### [facility] [address] [place], [address] Nucleated RBC (Bld) [#/Vol] 0 10*3/uL Normal 0-5 [facility] Comment on above: Performed By: #### L 500.4050, L100.0100 #### [facility] [address] [place], [address] Platelet mean volume (Bld) [Entitic vol] 8.4 fL Normal 6.2-12.0 [facility] Comment on above: Performed By: #### L 500.4050, L100.0100 #### [facility] [address] [place], [address] Platelets (Bld) [#/Vol] 122 10*3/uL Low 150-450 [facility] Comment on above: Performed By: #### L 500.4050, L100.0100 #### [facility] [address] [place], [address] RBC (Bld) [#/Vol] 3.55 10*6/uL Low 4.2-5.4 [facility] Comment on above: Performed By: #### L 500.4050, L100.0100 #### [facility] [address] [place], [address] RDW SD 49.6 fl High 35.1-43.9 [facility] [facility] Comment on above: Performed By: #### L 500.4050, L100.0100 #### [facility] [address] [place], [address] WBC (Bld) [#/Vol] 5.1 10*3/uL Normal 4.4-11.0 [facility] Comment on above: Performed By: #### L 500.4050, L100.0100 #### [facility] [address] [place], [address] Carbon dioxide, total [Moles /volume] in Central venous bloodOrdered By: Nabeel Patel on 01-23-2025 CO2 [Moles/Vol] 22.9 mmol/L 21.0-32.0 [facility] Chloride assayOrdered By: Ainrudh Patel on 01-23-2025 Chloride [Moles/Vol] 92 mmol/L Low 98-108 [facility] Comprehensive Metabolic Prof ilon 01-23-2025 Albumin [Mass/Vol] 3.8 g/dL Normal 3.4-4.8 [facility] Comment on above: Performed By: #### L 501.4405, L100.0100, L501.1105 #### [facility] [address] [place], [address] Albumin/Globulin [Mass ratio] 1.1 {ratio} Normal 0.9-2.4 [facility] Comment on above: Performed By: #### L 501.4405, L100.0100, L501.1105 #### [facility] [address] [place], [address] ALK PHOS 251 U/L High 35-104 [facility] Comment on above: Performed By: #### L 501.4405, L100.0100, L501.1105 #### [facility] [address] [place], [address] ALT [Catalytic activity/Vol] 27 U/L Normal <=34 [facility] Comment on above: Performed By: #### L 501.4405, L100.0100, L501.1105 #### [facility] [address] [place], [address] AST [Catalytic activity/Vol] 89 U/L High <=31 [facility] Comment on above: Performed By: #### L 501.4405, L100.0100, L501.1105 #### [facility] [address] [place], [address] Bilirubin [Mass/Vol] 2.33 mg/dL High 0.00-1.30 [facility] Comment on above: Performed By: #### L 501.4405, L100.0100, L501.1105 #### [facility] [address] [place], [address] BUN/CRE 16.4 RATIO Normal 10-20 [facility] Comment on above: Performed By: #### L 501.4405, L100.0100, L501.1105 #### [facility] [address] [place], [address] Calcium [Mass/Vol] 9.7 mg/dL Normal 7.6-11.0 [facility] Comment on above: Performed By: #### L 501.4405, L100.0100, L501.1105 #### [facility] [address] [place], [address] Chloride [Moles/Vol] 92 mmol/L Low 98-108 [facility] Comment on above: Performed By: #### L 501.4405, L100.0100, L501.1105 #### [facility] [address] [place], [address] CO2 [Moles/Vol] 22.9 mmol/L Normal 21.0-32.0 [facility] Comment on above: Performed By: #### L 501.4405, L100.0100, L501.1105 #### [facility] [address] [place], [address] Creatinine [Mass/Vol] 0.66 mg/dL Low 0.70-1.20 [facility] Comment on above: Performed By: #### L 501.4405, L100.0100, L501.1105 #### [facility] [address] [place], [address] ECRCL 54.08 ml/min Normal 50-250 [facility] Comment on above: Performed By: #### L 501.4405, L100.0100, L501.1105 #### [facility] [address] [place], [address] GAP 16 High 5-15 [facility] Comment on above: Performed By: #### L 501.4405, L100.0100, L501.1105 #### [facility] [address] [place], [address] GFR/1.73 sq M.predicted among non-blacks MDRD (S/P/Bld) [Vol rate/Area] 92 mL/min/{1.73_m2} Normal >60 [facility] Comment on above: Result Comment: mL/m in/1.73m2 CKD-EPI Creatinine Equation (2020) Performed By: #### L 501.4405, L100.0100, L501.1105 #### [facility] [address] [place], [address] Globulin (S) [Mass/Vol] 3.6 g/dL Normal 2.2-4.2 [facility] Comment on above: Performed By: #### L 501.4405, L100.0100, L501.1105 #### [facility] [address] [place], [address] Glucose [Mass/Vol] 129 mg/dL High 70-99 [facility] Comment on above: Performed By: #### L 501.4405, L100.0100, L501.1105 #### [facility] [address] [place], [address] Potassium [Moles/Vol] 3.6 mmol/L Normal 3.3-5.1 [facility] Comment on above: Performed By: #### L 501.4405, L100.0100, L501.1105 #### [facility] [address] [place], [address] Sodium [Moles/Vol] 130 mmol/L Low 133-145 [facility] Comment on above: Performed By: #### L 501.4405, L100.0100, L501.1105 #### [facility] [address] [place], [address] T PROT 7.4 g/dL Normal 5.9-8.4 [facility] Comment on above: Performed By: #### L 501.4405, L100.0100, L501.1105 #### [facility] [address] [place], [address] Urea nitrogen [Mass/Vol] 11 mg/dL Normal 4-19 [facility] Comment on above: Performed By: #### L 501.4405, L100.0100, L501.1105 #### [facility] [address] [place], [address] Eosinophil percentageOrdered By: Nabeel Patel on 01-23-2025 Eosinophils/100 WBC (Bld) 0.6 % 0-5 [facility] Erythrocyte distribution wid th ratioOrdered By: Nabeel Patel on 01-23-2025 Erythrocyte distribution width (RBC) [Ratio] 13.7 % 11.6-14.6 [facility] Erythrocyte distribution wid th standard deviationOrdered By: Nabeel Patel on 01-23-2025 Erythrocyte distribution width (RBC) [Ratio] 49.6 fl High 35.1-43.9 [facility] Glomerular filtration rate ( GFR) estimation/1.73 sq m using serum, plasma, or whole bOrdered By: Nabeel Patel on 01-23-2025 GFR/1.73 sq M.predicted among non-blacks MDRD (S/P/Bld) [Vol rate/Area] 92 mL/min/{1.73_m2} >60 [facility] Comment on above: mL/min/1.73m2 CKD-EP I Creatinine Equation (2020) Hematocrit Auto (Bld) [Volum e fraction]Ordered By: [facility] Patel on 01-23-2025 Hematocrit (Bld) [Volume fraction] 35.4 % Low 37-47 [facility] Hemoglobin measurementOrdere d By: Nabeel Patel on 01-23-2025 Hemoglobin (Bld) [Mass/Vol] 12.8 g/dL 12.0-15.0 [facility] Immature granulocytes/100 WB C Auto (Bld)Ordered By: Nabeel Patel on 01-23-2025 Immature granulocytes/100 WBC (Bld) 0.400 % 0.0-0.9 [facility] Comment on above: IG% - Immature Granu locytes (promyelocytes, myelocytes and metamyelocytes) > 1% indicates that a LEFT SHIFT is Present. Laboratory - Chemistry and C hemistry - challengeOrdered By: Nabeel Patel on 01-23-2025 AST [Catalytic activity/Vol] 89 U/L High <32 [facility] MCV (mean corpuscular volume ) determinationOrdered By: Nabeel Patel on 01-23-2025 MCV (RBC) [Entitic vol] 99.7 fL High 81-99 [facility] Mean corpuscular hemoglobin (MCH) determinationOrdered By: Nabeel Patel on 01-23-2025 MCH (RBC) [Entitic mass] 36.1 pg High 27.0-32.0 [facility] Mean corpuscular hemoglobin concentration (MCHC) determinationOrdered By: Nabeel Patel on 01-23-2025 MCHC (RBC) [Mass/Vol] 36.2 g/dL High 32-36 [facility] Mean platelet volume determi nationOrdered By: Nabeel Patel on 01-23-2025 Platelet mean volume (Bld) [Entitic vol] 8.4 fL 6.2-12.0 [facility] Monocyte percentageOrdered B y: Nabeel Patel on 01-23-2025 Monocytes/100 WBC (Bld) 13.2 % High 0-10 [facility] Neutrophil percentageOrdered By: Nabeel Patel on 01-23-2025 Neutrophils/100 WBC (Bld) 51.7 % 47-70 [facility] Nucleated red blood cell per centageOrdered By: Nabeel Patel on 01-23-2025 Nucleated RBC/100 WBC (Bld) [Ratio] 0 % 0-5 [facility] Oncology Visit Reporton 01-03 Oncology Visit Report [facility] [address] [place] [address] OFFICE VISIT Date of Service: 01/23/25 1311 MR#: [id number] Acct: [id number] Name: MARY ALICE GA Rep #: [id number] : 1950 From: Nabeel Patel MD Age/Sex: 74/F Location: [facility] Status: Signed HPI Subjective Date of Service [...] RESULT Block A E-Cad (ECH-6) positive CK8 (49hvcfM23) positive Calponin-1 (CJ132W) negative CK5-6 (D5 1684) negative P40 (BC28) negative P53 (DO-7) negative (null pattern) Ki-67 (30-9) positive, low ( 15%) MORPHOMETRIC ANALYSIS ER (clone 6F11) >95%, strong intensity SD (clone 16/1E2) >95%, strong intensity Her-2Neu (clone CB11) 1-2+ Block B E-Cad (ECH-6) positive CK8 (71lrfhN20) positive Calponin-1 (VB552G) negative * CK5-6 (D5 1684) negative * P40 (BC28) negative * P53 (DO-7) positive, rare cells (wild type pattern) Ki-67 (30-9) positive * Positive in the area of DCIS. MORPHOMETRIC ANALYSIS ER (clone 6F11) >95%, strong intensity SD (clone 16/1E2) >95%, strong intensity Her-2Neu (clone [...] axillary sen (more content not included)... Normal [facility] Platelet countOrdered By: Anirudh Patel on 01-23-2025 Platelets (Bld) [#/Vol] 122 10*3/uL Low 150-450 [facility] Potassium measurement (mass/ volume)Ordered By: Nabeel Patel on 01-23-2025 Potassium (Unsp spec) [Mass/Vol] 3.6 mmol/L 3.3-5.1 [facility] RBC Auto (Bld) [#/Vol]Ordere d By: Nabeel Patel on 01-23-2025 RBC (Bld) [#/Vol] 3.55 10*6/uL Low 4.2-5.4 [facility] Serum creatinine measurement (mass/volume)Ordered By: Nabeel Patel on 01-23-2025 Creatinine [Mass/Vol] 0.66 mg/dL Low 0.70-1.20 [facility] Serum globulin measurementOr dered By: Nabeel Patel on 01-23-2025 Globulin (S) [Mass/Vol] 3.6 g/dL 2.2-4.2 [facility] Serum glucose measurement (m ass/volume)Ordered By: Nabeel Patel on 01-23-2025 Glucose [Mass/Vol] 129 mg/dL High 70-99 [facility] Serum or plasma alanine gibbs otransferase (ALT) measurementOrdered By: Nabeel Patel on 01-23-2025 ALT [Catalytic activity/Vol] 27 U/L <35 [facility] Serum or plasma albumin seth urement (mass/volume)Ordered By: Nabeel Patel on 01-23-2025 Albumin [Mass/Vol] 3.8 g/dL 3.4-4.8 [facility] Serum or plasma albumin/glob ulin mass ratioOrdered By: Nabeel Patel on 01-23-2025 Albumin/Globulin [Mass ratio] 1.1 {ratio} 0.9-2.4 [facility] Serum or plasma alkaline miguel sphatase measurementOrdered By: Nabeel Patel on 01-23-2025 ALP [Catalytic activity/Vol] 251 U/L High 35-104 [facility] Serum or plasma calcium seth urement (mass/volume)Ordered By: Nabeel Arguetaalicia on 01-23-2025 Calcium [Mass/Vol] 9.7 mg/dL 7.6-11.0 [facility] Serum or plasma urea nitroge n measurement (mass/volume)Ordered By: Nabeel Arguetaalicia on 01-23-2025 Urea nitrogen [Mass/Vol] 11 mg/dL 4-19 [facility] Sodium levelOrdered By: Damari Arguetaalicia on 01-23-2025 Sodium [Moles/Vol] 130 mmol/L Low 133-145 [facility] Total proteinOrdered By: Uriel Arguetachrissie on 01-23-2025 Protein [Mass/Vol] 7.4 g/dL 5.9-8.4 [facility] White blood cell (WBC) count Ordered By: Nabeel Arguetaalicia on 01-23-2025 WBC (Bld) [#/Vol] 5.1 10*3/uL 4.4-11.0 [facility] Internal Medicine Office Vis iton 01-22-2025 Internal Medicine Office Visit [facility] [address] [place] [address] [place] [address] OFFICE VISIT Date of Service: 01/22/25 MR#: [id number] Acct: [id number] Name: MARY ALICE GA Rep #: [id number] : 1950 Provider: JIMMY Mohamud Age/Sex: 74/F Location[place] [facility] Status: Signed Intake Vital Signs 06/17/24 14:11 01/22/25 11:52 Height 5 ft 2 in 5 ft 2 in Weight: 144 lb BMI 26.3 BP 110/60 Blood Pressure Location Rt brachial Position Sitting Respiration 16 Pulse 64 Pulse Source Monitor Temp 97.2 F L Temp Source Temporal Pulse Oximetry (%) 95 Oxygen Delivery Method room air Intake Visit Reasons: ACUTE-MED DISCUSSION/REFILLS Visualizer Required: No Is patient in pain?: Yes [...] her leg is healed. Back is in [place] and will not fill out of states. Pt states that she took some of her husbands oxycodone and that was the first time that she was able to sleep due to leg pain. She states her back pain is manageable. RLL is managed by wound center [facility] in [place] and has been ongoing since last year, compression stockings were left on too long and caused a wound. Pt states that she see's them percy and next appointment is 01/28/25. [facility] Medical History Screening for breast cancer [...] a back specialist while she is in [place] due to multi-level kyphoplasty due to compression [...] on her (more content not included)... Normal [facility] CNTHERAPYon 01-20-2025 CNTHERAPY [facility] [id number] 01-07-2025 [id number] Normal [facility] CNTHERAPYon 01-06-2025 CNTHERAPY Normal [facility] CNTHERAPYon 06-26-2024 CNTHERAPY Normal [facility] CNTHERAPYon 06-18-2024 CNTHERAPY Normal [facility] CBC-Complete Blood Cnt No Di ffon 06-17-2024 Erythrocyte distribution width (RBC) [Ratio] 15.2 % High 11.6-14.6 [facility] Comment on above: Performed By: #### L 500.4050, L100.0500 #### [facility] [address] [place], [address] Hematocrit (Bld) [Volume fraction] 35.7 % Low 37-47 [facility] Comment on above: Performed By: #### L 500.4050, L100.0500 #### [facility] [address] [place], [address] Hemoglobin (Bld) [Mass/Vol] 11.7 g/dL Low 12.0-15.0 [facility] Comment on above: Performed By: #### L 500.4050, L100.0500 #### [facility] [address] [place], [address] MCH (RBC) [Entitic mass] 28.3 pg Normal 27.0-32.0 [facility] Comment on above: Performed By: #### L 500.4050, L100.0500 #### [facility] [address] [place], [address] MCHC (RBC) [Mass/Vol] 32.8 g/dL Normal 32-36 [facility] Comment on above: Performed By: #### L 500.4050, L100.0500 #### [facility] [address] [place], [address] MCV (RBC) [Entitic vol] 86.2 fL Normal 81-99 [facility] Comment on above: Performed By: #### L 500.4050, L100.0500 #### [facility] [address] [place], [address] Platelet mean volume (Bld) [Entitic vol] 9.2 fL Normal 6.2-12.0 [facility] Comment on above: Performed By: #### L 500.4050, L100.0500 #### [facility] [address] [place], [address] Platelets (Bld) [#/Vol] 200 10*3/uL Normal 150-450 [facility] Comment on above: Performed By: #### L 500.4050, L100.0500 #### [facility] [address] [place], [address] RBC (Bld) [#/Vol] 4.14 10*6/uL Low 4.2-5.4 [facility] Comment on above: Performed By: #### L 500.4050, L100.0500 #### [facility] [address] [place], [address] RDW SD 47.8 fl High 35.1-43.9 [facility] Comment on above: Performed By: #### L 500.4050, L100.0500 #### [facility] [address] [place], [address] WBC (Bld) [#/Vol] 5.1 10*3/uL Normal 4.4-11.0 [facility] Comment on above: Performed By: #### L 500.4050, L100.0500 #### [facility] [address] [place], [address] Comprehensive Metabolic Prof ilon 06-17-2024 Albumin [Mass/Vol] 3.5 g/dL Normal 3.2-5.0 [facility] Comment on above: Performed By: #### L 500.4050, L100.0500 #### [facility] [address] [place], [address] Albumin/Globulin [Mass ratio] 0.8 {ratio} Low 0.9-2.4 [facility] Comment on above: Performed By: #### L 500.4050, L100.0500 #### [facility] [address] [place], [address] ALK P 235 U/L High 45-117 [facility] Comment on above: Performed By: #### L 500.4050, L100.0500 #### [facility] [address] [place], [address] ALT [Catalytic activity/Vol] 19 U/L Normal 13-56 [facility] Comment on above: Performed By: #### L 500.4050, L100.0500 #### [facility] [address] [place], [address] AST [Catalytic activity/Vol] 22 U/L Normal 15-37 [facility] Comment on above: Performed By: #### L 500.4050, L100.0500 #### [facility] [address] [place], [address] Bilirubin [Mass/Vol] 1.30 mg/dL High 0.20-1.00 [facility] Comment on above: Result Comment: For patients on eltrombopag therapy, use of Dimension Thicket TBIL is not recommended. Performed By: #### L 500.4050, L100.0500 #### [facility] [address] [place], [address] BUN/CRE 21.7 RATIO High 10-20 [facility] Comment on above: Performed By: #### L 500.4050, L100.0500 #### [facility] [address] [place], [address] CA,Total 9.8 mg/dL Normal 8.5-10.1 [facility] Comment on above: Performed By: #### L 500.4050, L100.0500 #### [facility] [address] [place], [address] Chloride [Moles/Vol] 98 mmol/L Normal 98-107 [facility] Comment on above: Performed By: #### L 500.4050, L100.0500 #### [facility] [address] [place], [address] CO2 [Moles/Vol] 28.0 mmol/L Normal 21.0-32.0 [facility] Comment on above: Performed By: #### L 500.4050, L100.0500 #### [facility] [address] [place], [address] Creatinine [Mass/Vol] 0.88 mg/dL Normal 0.55-1.02 [facility] Comment on above: Result Comment: The validity of the calculated GFR GFRAA in patients over 70 years has not been determined. Clinical correlation is essential. Performed By: #### L 500.4050, L100.0500 #### [facility] [address] [place], [address] ECRCL 52.58 ml/min Normal [facility] Comment on above: Performed By: #### L 500.4050, L100.0500 #### [facility] [address] [place], [address] EST GFR - AA 82 mL/min Normal >60 [facility] Comment on above: Result Comment: Afri can Salvadorean GFR Calc Performed By: #### L 500.4050, L100.0500 #### [facility] [address] [place], [address] GAP 7 Normal 5-15 [facility] Comment on above: Performed By: #### L 500.4050, L100.0500 #### [facility] [address] [place], [address] GFR/1.73 sq M.predicted among non-blacks MDRD (S/P/Bld) [Vol rate/Area] 67 mL/min/{1.73_m2} Normal >60 [facility] Comment on above: Result Comment: Non- GFR Calc Performed By: #### L 500.4050, L100.0500 #### [facility] [address] [place], [address] Globulin (S) [Mass/Vol] 4.3 g/dL High 2.2-4.2 [facility] Comment on above: Performed By: #### L 500.4050, L100.0500 #### [facility] [address] [place], [address] Glucose [Mass/Vol] 74 mg/dL Normal 74-106 [facility] Comment on above: Performed By: #### L 500.4050, L100.0500 #### [facility] [address] [place], [address] Potassium [Moles/Vol] 4.2 mmol/L Normal 3.5-5.1 [facility] Comment on above: Performed By: #### L 500.4050, L100.0500 #### [facility] [address] [place], [address] Sodium [Moles/Vol] 133 mmol/L Low 136-145 [facility] Comment on above: Performed By: #### L 500.4050, L100.0500 #### [facility] [address] [place], [address] T PROT 7.8 g/dL Normal 6.4-8.2 [facility] Comment on above: Performed By: #### L 500.4050, L100.0500 #### [facility] [address] [place], [address] Urea nitrogen [Mass/Vol] 19 mg/dL High 7-18 [facility] Comment on above: Performed By: #### L 500.4050, L100.0500 #### [facility] [address] [place], [address] Oncology Visit Reporton 06-04 Oncology Visit Report [facility] [address] [place] [address] OFFICE VISIT Date of Service: 06/17/24 1410 MR#: [id number] Acct: [id number] Name: MARY ALICE GA Rep #: [id number] : 1950 From: Cesia Carr Age/Sex: 73/F Location[place] [facility] Status: Signed HPI Subjective Date of Service [...] RESULT Block A E-Cad (ECH-6) positive CK8 (69zvnmF82) positive Calponin-1 (AT948S) negative CK5-6 (D5 1684) negative P40 (BC28) negative P53 (DO-7) negative (null pattern) Ki-67 (30-9) positive, low ( 15%) MORPHOMETRIC ANALYSIS ER (clone 6F11) >95%, strong intensity SD (clone 16/1E2) >95%, strong intensity Her-2Neu (clone CB11) 1-2+ Block B E-Cad (ECH-6) positive CK8 (36egzqQ62) positive Calponin-1 (RC514J) negative * CK5-6 (D5 1684) negative * P40 (BC28) negative * P53 (DO-7) positive, rare cells (wild type pattern) Ki-67 (30-9) positive * Positive in the area of DCIS. MORPHOMETRIC ANALYSIS ER (clone 6F11) >95%, strong intensity SD (clone 16/1E2) >95%, strong intensity Her-2Neu (clone [...] Left axillary (more content not included)... Normal [facility] SCREEN MAMM (CAD) W/ZANA UNI Grant 06-14-2024 SCREEN MAMM (CAD) W/ZANA UNI R [facility] [address] [place] [address] SCREEN MAMM (CAD) W/ZANA UNI R MR#: [id number] Acct: [id number] Name: MARY ALICE GA Rep #: [id number] : 1950 F 73 From: Nahum nieves MD PCP: Dr. Khanh Rodriguez MD Status: [facility] Study: SCREEN MAMM (CAD) W/ZANA UNI R Date of Exam: Exam# [id number] Ordering Dr: Cesia Perry NP ELEVATOR INSPECTOR -C [id number] MAMMOGRAPHY - UNILATERAL SCREENING: RIGHT BREAST REASON [...] delay biopsy of a clinically suspicious abnormality. [id number] Electronically Signed: Nahum Kelley MD at 9:20 EDT , CC: SAMUEL Perry; Dr. Khanh Rodriguez MD Airplane Technician: Signed Normal [facility] CNOVon 06-12-2024 OV Office Visit (SPNMED ) -- MARY ALICE GA ([id number]) 1950 F Date Time Provider Department 06/12/24 10:20 AM MONSE MERLOS SPNMED During your visit today, we recorded the following information about you: Pulse Blood pressure Weight Height 52/minute 126/63 69 kg 1.575 m Monse Merlos PA-C 06/17/2024 7:38 PM Addendum [facility] [address] [address] 06/12/2024 ASSESSMENT AND PLAN: Assessment : Encounter [...] She had some plain radiographs done at [facility], but did not bring those here for review today. 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 This includes qtdi-[id number] time, review of chart records regarding conservative care history, spine-pertinent imaging, and communication/care coordination with referring provider, problem-specific history-taking and counseling/education regarding treatment options. cc: Marisela Mccarty [address] [address] Results of consultation to be transmitted via electronic medical record for those providers who practice within [facility] or with access to [employer] via [employer] Connect, or via letter. ########################## [...] 300 mg (more content not included)... Normal [facility] CNTHERAPYon 06-12-2024 CNTHERAPY Normal [facility] Partial Thromboplast Timeon 05-31-2024 aPTT Coag (Bld) [Time] 38.4 s High 24.1-36.2 [facility] Comment on above: Performed By: #### L 300.3900, L300.4310, L100.1900 #### [facility] [address] [place], [address] Platelet Counton 05-31-2024 Platelets (Bld) [#/Vol] 167 10*3/uL Normal 150-450 [facility] Comment on above: Performed By: #### L 300.3900, L300.4310, L100.1900 #### [facility] [address] [place], [address] Procedure Reporton Procedure Report [facility] Medical Records Department [address] [place] [address] Procedure Report 05/31/24 1052 MR#: [id number] Acct: [id number] Name: MARY ALICE GA Rep #: [id number] : 1950 73 From: Yamile Glez ELEVATOR INSPECTOR-C PCP: Dr. Khanh Rodriguez MD Status:REG CLI [...] independent monitoring. Procedures Radiology Radiology US Procedures: 80904 Liver Biopsy Multi Select Codes Radiology Radiology CT Procedures: 87723-52 CT guidance parenchymal tissue 05/31/24 1055 Cosigner Signature (if applicable): CC: SAMUEL Glez; Dr. Khanh Rodriguez MD; Johny Davila, Signed Normal [facility] Prothrombin Time w/INRon INR Coag (PPP) [Relative time] 1.3 {INR} Normal [facility] Comment on above: Performed By: #### L 300.3900, L300.4310, L100.1900 #### [facility] [address] [place], [place], [id number] PT Coag (PPP) [Time] 15.8 s High 11.7-14.9 [facility] Comment on above: Performed By: #### L 300.3900, L300.4310, L100.1900 #### [facility] [address] [place], [place], [id number] Trichrome (control)on 2023 Trichrome (control) ------ Patient Age/Sex Location Account Attending Physician MARY ALICE GA 73/F CT [id number] Johny Davila DO Specimen: [id number] Received: 05/31/24 Status: KATHRYN Estrella Num: [id number] Spec Type: SHABANA Louis Dr: DO TITA [...] submitted in one cassette. . 05/31/2024 TC:3 CPT:78764,67946v4 Patient Age/Sex Location Account Attending Physician MARY ALICE GA 73/ CT [id number] Johny Davila DO Signed (signature on file) Dr. Ronal Kenyon DO 06/03/24 1216 Normal [facility] Comment on above: Performed By: #### L 501.4405, L100.0100, L501.1105 #### [facility] [place], [place], [address] CNTHERAPYon 04-30-2024 CNTHERAPY OT/PT/Speech Visit ( PTWS) -- MARY ALICE GA Chucky ([id number]) 1950 F Date Time Provider Department 04/30/24 8:15 AM LISETH ALANIS PTWS Date Time Provider Department Center 04/30/2024 8:15 AM [id number] ALANIS Eliot Gerardo Reason for Visit: PT [...] mg by mouth three times daily. Normal [facility] CNOVon 04-23-2024 CNOV Office Visit (VASSWS ) -- MARY ALICE GA ([id number]) 1950 F Date Time Provider Department 04/23/24 10:30 AM GT YIN VASTRS During your visit today, we recorded the following information about you: Pulse Blood pressure 59/minute 126/68 Gt Yin, 05/23/2024 4:21 PM Signed [facility] [place] DEPARTMENT OF VASCULAR SURGERY OUTPATIENT VISIT DATE [...] vein at the knee crease. 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 Normal [facility] CNTHERAPYon 04-23-2024 CNTHERAPY OT/PT/Speech Visit ( PTWS) -- MARY ALICE GA ([id number]) 1950 F Date Time Provider Department 04/23/24 2:15 PM LISETH ALANIS PTWS Date Time Provider Department [place] 04/23/2024 2:15 PM [id number]-ZLISETH ALANIS PTWS Eliot Carrillo Reason for Visit: [...] mg by mouth three times daily. Normal [facility] CNTHERAPYon 04-16-2024 CNTHERAPY OT/PT/Speech Visit ( PTWS) -- MARY ALICE GA ([id number]) 1950 F Date Time Provider Department 04/16/24 10:30 AM LISETH ALANIS PTLUTHER Date Time Provider Department Center 04/16/2024 10:30 AM [id number]-ZLISETH ALANIS PTLUTHER Carrillo Reason for Visit: Physical [...] mg by mouth three times daily. -- Sfdc Consultant: Therapy (PT/OT/Speech/Resp) ID: [id number] 04/16/2024 11:01 AM Author: LISETH ALANIS Signed by LISETH ALANIS PT on 04/16/2024 at 11:01 AM Document text: Program_ID:[id number] Access Code: [email or web address] URL: [email or web address]/ Date: 04-16-2024 Prepared By: Liseth Alanis Program Notes Exercises - Lateral Shift Correction at Wall - 2-3 x daily - 7 x weekly - 4 sets - 10 reps Normal [facility] THERAPY NTon 04-16-2024 THERAPY NT HNO ID: [id number] Author: LISETH ALANIS PT Service: ? Author Type: Physical Therapist Type: Therapy (PT/OT/Speech/Resp) Filed: 04/16/2024 11:01 Note Text: Program_ID:[id number] Access Code: [email or web address] URL: [email or web address]/ Date: 04-16-2024 Prepared By: Liseth Alanis Program Notes Exercises - Lateral Shift Correction at Wall - 2-3 x daily - 7 x weekly - 4 sets - 10 reps Normal [facility] CNOVon 04-03-2024 CNOV Office Visit (VSLWST ) -- MARY ALICE GA ([id number]) 1950 F Date Time Provider Department 04/03/24 2:30 PM [facility] WSTR VSLWST During your visit today, we recorded the following information about you: Referring Provider: GT YIN [[id number]] Allergies As of Date: 04/03/2024 Noted Allergy Reaction CLARITHROMYCIN (BULK) 06/15/2010 14 - Other: See Comments Comments: pancrititis STEROIDS (BETAMETHASONE DIPROPION*06/15/2010 5 - Intolerance Comments: pancritis Date Reviewed: 04/02/2024 Reviewed by: Latonia Fernandez OCCA - Fully Assessed Visit Diagnoses:Venous (peripheral) insufficiency [I87.2] Symptomatic varicose veins of both lower extremities [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 #:[id number] Prescriptions as of 05/22/2024 - LASIX 40 [...] by DOUGLAS STARR CMA on 05/22/24 Normal [facility] VENOUS INCOMPETENCY ALBERT V LABon 04-03-2024 VENOUS INCOMPETENCY [facility] Non-Invasive Vascular Laboratory [facility] Venous Valvular Incompetency Bilateral/Complete Date of service/time: [...] equal to 0.5 second. Size 0.37 cm. Solution Coordinator vein proximal/mid calf Augmentation reflux none. Valsalva reflux none. Size 0.35 cm. Depth 0.94 cm. Solution Coordinator vein proximal/mid calf Augmentation reflux none. Valsalva reflux none. Size 0.22 cm. Depth 0.58 cm. Solution Coordinator vein mid calf Augmentation reflux none. Size [...] AND PERFORATORS Varicosity knee Size 0.43 cm. Solution Coordinator vein mid calf Augmentation reflux greater than or equal to 0.35 second. Size 0.33 cm. Depth 0.99 cm. Solution Coordinator vein distal calf Valsalva reflux greater than [...] vein at the knee crease. 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 and another at distal calf. Negative for valvular incompetency in the anterior accessory great saphenous vein. Varicosities arise proximal thigh and course along anterior thigh. Negative for valvular incompetency in the small saphenous vein. Technologist: Daphnie Evans (more content not included)... Normal [facility] US Vein - bilateralon 2023 Non-Invasive Vascular Laboratory [facility] Venous Valvular Incompetency Bilateral/Complete Date of service/time: [...] equal to 0.5 second. Size 0.37 cm. Solution Coordinator vein proximal/mid calf Augmentation reflux none. Valsalva reflux none. Size 0.35 cm. Depth 0.94 cm. Solution Coordinator vein proximal/mid calf Augmentation reflux none. Valsalva reflux none. Size 0.22 cm. Depth 0.58 cm. Solution Coordinator vein mid calf Augmentation reflux none. Size [...] AND PERFORATORS Varicosity knee Size 0.43 cm. Solution Coordinator vein mid calf Augmentation reflux greater than or equal to 0.35 second. Size 0.33 cm. Depth 0.99 cm. Solution Coordinator vein distal calf Valsalva reflux greater than [...] vein at the knee crease. 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 and another at distal calf. Negative for valvular incompetency in the anterior accessory great saphenous vein. Varicosities arise proximal thigh and course along anterior thigh. Negative for valvular incompetency in the small sapheno (more content not included)... [facility] CNOVon 04-02-2024 CNOV Office Visit (EDUARD ) -- MARY ALICE GA ([id number]) 1950 F Date Time Provider Department 04/02/24 [...] femoral neck fracture 3 years ago in [place] and was treated with a uncemented hemiarthroplasty [...] which included preparing to see the patient, [id number] patient care, completing clinical documentation, obtaining and/or [...] - Fully Assessed Reason for Visit: New [944624] Pain [78] Primary Visit Diagnosis:S/P hip hemiarthroplasty [Z96.649] Other Visit Diagnosis:Degenerative scoliosis [M41.50] Order(s):CONSULT TO [facility] [597447] Order #: [id number]: 1 FUTURE Prescriptions as of 04/02/2024 - [...] Number: [id number] (more content not included)... Normal [facility] [place] XR Hip - left AP and Lateral on 04-02-2024 IMPRESSION: Findings as discussed in results portion of report Airplane Technician: ABDIEL Transcribe Date/Time: Apr 02 2024 2:38P Dictated by : ZOHREH HURTADO DO This examination was interpreted and the report reviewed and electronically signed by: ZOHREH HURTADO DO on Apr 02 2024 2:39PM [facility] RADIOLOG[facility] * * *Final Report* * * [...] Marked narrowing of the RIGHT hip joint AXIS RADIOLOGY Provider, Krishna Chun [place] - 04/02/2024 * * *Final Report* * [...] as discussed in results portion of report Airplane Technician: ABDIEL Transcribe Date/Time: Apr 02 2024 2:38P Dictated by : ZOHREH HURTADO DO This examination was interpreted and the report reviewed and electronically signed by: ZOHREH HURTADO DO on Apr 02 2024 2:39PM [facility] Radiology Study observation (narrative) [facility] XR Hip - left AP and Lateral Ordered By: [facility] Provider on 04-02-2024 [facility] CNTHERAPYon 04-01-2024 CNTHERAPY OT/PT/Speech Visit ( PTWS) -- MARY ALICE GA Chucky ([id number]) 1950 F Date Time Provider Department 04/01/24 4:15 PM LISETH ALANIS Date Time Provider Department [place] 04/01/2024 4:15 PM [id number] ALAINS Eliot Gerardo Reason for Visit: Physical Therapy [...] by mouth three times daily. -- Normal [facility] CNTHERAPYon 03-26-2024 CNTHERAPY OT/PT/Speech Visit ( PTWS) -- MARY ALICE GA F ([id number]) 1950 F Date Time Provider Department 03/26/24 11:15 AM LISETH ALANIS PTLUTHER Date Time Provider Department Center 03/26/2024 11:15 AM [id number] ALANIS Reason for Visit: Physical Therapy [503] [...] mg by mouth three times daily. -- Sfdc Consultant: Therapy (PT/OT/Speech/Resp) ID: [id number] 03/26/2024 11:46 AM Author: LISETH ALANIS Signed by LISETH ALANIS PT on 03/26/2024 at 11:46 AM Document text: Program_ID:[id number] Access Code: [email or web address] URL: [email or web address]/ Date: 03-26-2024 Prepared By: Liseth Alanis Program [...] - 2 sets - 10 reps Normal [facility] THERAPY NTon 03-26-2024 THERAPY NT HNO ID: [id number] Author: LISETH ALANIS PT Service: ? Author Type: Physical Therapist Type: Therapy (PT/OT/Speech/Resp) Filed: 03/26/2024 11:46 Note Text: Program_ID:[id number] Access Code: [email or web address] URL: [email or web address] Date: 03-26-2024 Prepared By: Liseth Alanis Program [...] - 2 sets - 10 reps Normal [facility] CNTHERAPYon 03-20-2024 CNTHERAPY OT/PT/Speech Visit ( PTWS) -- MARY ALICE GA ([id number]) 1950 F Date Time Provider Department 03/20/24 12:00 PM LISETH ALANIS Date Time Provider Department Center 03/20/2024 12:00 PM [id number] ALANIS Reason for Visit: Physical Therapy [503] [...] by mouth three times daily. -- Normal [facility] [id number] 03-13-2024 [id number] O ID: [id number] Author: LISETH ALANIS PT Service: ? Author Type: Physical Therapist Type: [id number] Filed: 03/13/2024 13:32 Note Text: [facility] Physical Therapy Plan of Care Certification Patient Name: Mary Alice Ga : 1950 CC #: [id number] Date: 03/13/2024 To: Solo Calderón PA From Therapist: Liseth Alanis PT RE: Patient Certification/ Recertification Your review, approval and electronic signature are required in order to comply with Payor: MEDICARE / Plan: MEDICARE A AND B / Product Type: Medicare / [employer]. The identified Physical Therapy PLAN OF CARE [...] to reflect decreased fall risk. -- PROGRESSING [place] in home exercise program including cardiovascular exercise. [...] Patient to be seen for Gait Training (96664), Self-residential management (50892), Therapeutic activities (00487), Manual therapy (15700), Neuromuscular re-education (61067), Therapeutic exercise (60648) PLAN FOR NEXT VISIT: work on step ups, uneven surfaces For further details regarding this patient refer to the Physical Therapy electronically documented visit dated 03/13/2024. Provider Attestation I have reviewed the treatment plan for Mary Alice Ga, [facility]# [id number] for the period of 03/13/24 -- 05/08/24, established on 03/13/2024. Signature certifies the need for therapy services. Normal [facility] CNTHERAPYon 03-13-2024 CNTHERAPY OT/PT/Speech Visit ( PTWS) -- MARY ALICE GA ([id number]) 1950 F Date Time Provider Department 03/13/24 12:45 PM LISETH ALANIS PTLUTHER Date Time Provider Department Center 03/13/2024 12:45 PM [id number]-KLISETH ALANIS Reason for Visit: PT Progress Note [...] twice daily. Letter Text Letter Text Normal [facility] CNOVon 02-27-2024 CNOV Office Visit (VASSWS ) -- MARY ALICE GA ([id number]) 1950 F Date Time Provider Department 02/27/24 8:30 AM GT YINS During your visit today, we recorded the following information about you: Pulse Blood pressure 61/minute 128/66 Gt Yin, DO 03/26/2024 1:56 PM Signed [facility] [place] DEPARTMENT OF VASCULAR SURGERY OUTPATIENT VISIT DATE [...] past year. She has been treated at [place] [facility]. They recommend HBO to help with healing. She has history of AGSV EVLT and phlebectomy in 2015. She had reflux testing at [place] which demonstrated reflux and had ablation a few months ago and has had issue healing since the procedure. She wears compression stockings- knee high stockings. She currently has epifix in place with an compression dressing. 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 She stands for long periods of time during the day. 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 Has used compression pumps [...] and americo (more content not included)... Normal [facility] CNTHERAPYon 02-20-2024 CNTHERAPY OT/PT/Speech Visit ( PTWS) -- MARY ALICE GA F ([id number]) 1950 F Date Time Provider Department 02/20/24 10:30 AM LISETH ALANIS PTLUTHER Date Time Provider Department [place] 02/20/2024 10:30 AM [id number] ALANIS PTLUTHER Carrillo Reason for Visit: Physical [...] by mouth three times daily. -- Normal [facility] CNTHERAPYon 02-13-2024 CNTHERAPY OT/PT/Speech Visit ( PTWS) -- MARY ALICE GA F ([id number]) 1950 F Date Time Provider Department 02/13/24 10:30 AM LISETH ALANIS PTLUTHER Date Time Provider Department [place] 02/13/2024 10:30 AM [id number]-KLISETH ALANIS PTLUTHER Carrillo Reason for Visit: Physical [...] mg by mouth three times daily. -- Sfdc Consultant: Therapy (PT/OT/Speech/Resp) ID: [id number] 02/13/2024 11:06 AM Author: LISETH ALANIS Signed by LISETH ALANIS PT on 02/13/2024 at 11:06 AM Document text: Program_ID:[id number] Access Code: [email or web address] URL: [email or web address]/ Date: 02-13-2024 Prepared By: Liseth Alanis Program [...] - 2 sets - 12 reps Normal [facility] THERAPY NTon 06-11-2024 THERAPY NT HNO ID: [id number] Author: LISETH ALANIS PT Service: ? Author Type: Physical Therapist Type: Therapy (PT/OT/Speech/Resp) Filed: 02/13/2024 11:06 Note Text: Program_ID:[id number] Access Code: [email or web address] URL: [email or web address]/ Date: 02-13-2024 Prepared By: Liseth Aalnis Program Notes Exercises - Seated Lumbar Flexion [...] - 2 sets - 12 reps Normal [facility] CNTHERAPYon 02-06-2024 CNTHERAPY OT/PT/Speech Visit ( PTWS) -- MARY ALICE GA ([id number]) 1950 F Date Time Provider Department 02/06/24 8:15 AM LISETH ALANIS PTWS Date Time Provider Department Center 02/06/2024 8:15 AM [id number]-ALISETH ALANIS PTWS Eliot Carrillo Reason for Visit: [...] mg by mouth three times daily. -- Sfdc Consultant: Therapy (PT/OT/Speech/Resp) ID: [id number] 02/06/2024 8:47 AM Author: LISETH ALANIS Signed by LISETH ALANIS PT on 02/06/2024 at 8:47 AM Document text: Program_ID:[id number] Access Code: [email or web address] URL: [email or web address]/ Date: 02-06-2024 Prepared By: Liseth Alanis Program [...] - 4 sets - 15 reps Normal [facility] THERAPY NTon 02-06-2024 THERAPY NT HNO ID: [id number] Author: LISETH ALANIS PT Service: ? Author Type: Physical Therapist Type: Therapy (PT/OT/Speech/Resp) Filed: 02/06/2024 08:47 Note Text: Program_ID:[id number] Access Code: [email or web address] URL: [email or web address]/ Date: 02-06-2024 Prepared By: Liseth Alanis Program [...] - 4 sets - 15 reps Normal [facility] CNTHERAPYon 01-30-2024 CNTHERAPY OT/PT/Speech Visit ( PTWS) -- MARY ALICE GA F ([id number]) 1950 F Date Time Provider Department 01/30/24 10:30 AM LISETH ALANIS PTWS Date Time Provider Department Center 01/30/2024 10:30 AM [id number]-ELISETH ALANIS PTWS Eliot Carrillo Reason for Visit: [...] mg by mouth three times daily. -- Sfdc Consultant: Therapy (PT/OT/Speech/Resp) ID: [id number] 01/30/2024 11:07 AM Author: LISETH ALANIS Signed by LSIETH ALANIS PT on 01/30/2024 at 11:07 AM Document text: Program_ID:[id number] Access Code: [email or web address] URL: [email or web address]/ Date: 01-30-2024 Prepared By: Liseth Alanis Program Notes Exercises - Seated Lumbar Flexion Stretch - 2-3 x daily - 7 x weekly - 2-3 sets - 10 reps Normal [facility] THERAPY NTon 01-30-2024 THERAPY NT HNO ID: [id number] Author: LISETH ALANIS PT Service: ? Author Type: Physical Therapist Type: Therapy (PT/OT/Speech/Resp) Filed: 01/30/2024 11:07 Note Text: Program_ID:[id number] Access Code: [email or web address] URL: [email or web address] [email or web address]/ Date: 01-30-2024 Prepared By: Liseth Alanis Program Notes Exercises - Seated Lumbar Flexion Stretch - 2-3 x daily - 7 x weekly - 2-3 sets - 10 reps Normal [facility] [id number] 01-24-2024 [id number] HNO ID: [id number] Author: LISETH ALANIS PT Service: ? Author Type: Physical Therapist Type: [id number] Filed: 01/24/2024 17:24 Note Text: [facility] Physical Therapy Plan of Care Certification Patient Name: Mary Alice Ga : 1950 [facility] #: [id number] Date: 01/24/2024 To: Solo Calderón PA From [...] more repetitions to reflect decreased fall risk. [place] in home exercise program including cardiovascular exercise. Complete 6 MWT x1545 ft or more with or without SC. Patient Goals: amb without an AD from handicap spot to front door without LOB Planned Interventions, Frequency, and Duration: Current Frequency: 1x/week Duration: 6 weeks Total Number of Visits Planned: 6 Planned Treatment Interventions: Self-residential management (71692), Gait Training (57947), Therapeutic activities (44410), Manual therapy (09194), Neuromuscular re-education (93276), Therapeutic exercise (37550) PLAN FOR NEXT VISIT: 6 MWT Patient demonstrates good understanding of plan of care and treatment. The above goals and plan of care were discussed and agreed upon by patient/family. For further details regarding this patient refer to the Physical Therapy electronically documented visit dated 01/24/2024. Provider Attestation I have reviewed the treatment plan for Mary Alice Ga, [facility]# [id number] for the period of 01/24/24 -- 03/20/24, established on 01/24/2024. Signature certifies the need for therapy services. Normal [facility] CNTHERAPYon 01-24-2024 CNTHERAPY OT/PT/Speech Visit ( PTWS) -- MARY ALICE GA ([id number]) 1950 F Date Time Provider Department 01/24/24 3:45 PM LISETH ALANIS PTLUTHER Date Time Provider Department [place] 01/24/2024 3:45 PM [id number]-MLISETH ALANIS [facility]WS [facility] Reason for Visit: PT Eval [577] Primary Visit Diagnosis:Other malaise [R53.81] Allergies As [...] Letter Text Letter Text Letter Text Normal [facility] Absolute lymphocyte countOrd ered By: Solo Calderón on 01-05-2024 Lymphocytes Auto (Unsp spec) [#/Vol] 0.97 10*3/uL 0.83-4.51 [facility] Automated lymphocyte count a s percentage of total leukocytesOrdered By: Solo Calderón on 01-05-2024 Lymphocytes/100 WBC Auto (Unsp spec) 11.0 % 19-41 [facility] Basophil percentageOrdered B y: Solo Calderón on 01-05-2024 Basophils/100 WBC (Bld) 0.2 % 0-1 [facility] Bilirubin [Mass/Vol] 4.80 mg/dL 0.20-1.00 [facility] Comment on above: For patients on eltr ombopag therapy, use of Dimension Thicket TBIL is not recommended. Chloride [Moles/Vol] 98 mmol/L 98-107 [facility] Eosinophils/100 WBC (Bld) 0.5 % 0-5 [facility] Glucose [Mass/Vol] 113 mg/dL 74-106 [facility] Comment on above: Fasting Glucose resu lt from 100 to 125 mg/dL suggests IMPAIRED HOMEOSTASIS per A.D.A. criteria. Hemoglobin (Bld) [Mass/Vol] 9.9 g/dL 12.0-15.0 [facility] Monocytes/100 WBC (Bld) 7.3 % 0-10 [facility] Neutrophils (Bld) [#/Vol] 7.1 10*3/uL 2.0-7.7 [facility] Neutrophils/100 WBC (Bld) 80.5 % 47-70 [facility] Potassium [Moles/Vol] 3.0 mmol/L 3.5-5.1 [facility] Protein [Mass/Vol] 6.1 g/dL 6.4-8.2 [facility] Sodium [Moles/Vol] 131 mmol/L 136-145 [facility] WBC (Bld) [#/Vol] 8.9 10*3/uL 4.4-11.0 [facility] Determination of erythrocyte mean corpuscular volume (MCV)Ordered By: Solo Calderón on 01-05-2024 MCV (RBC) [Entitic vol] 105.2 fL 81-99 [facility] Erythrocyte distribution wid th ratioOrdered By: Solo Calderón on 01-05-2024 Erythrocyte distribution width (RBC) [Ratio] 13.0 % 11.6-14.6 [facility] Erythrocyte distribution wid th standard deviationOrdered By: Solo Calderón on 01-05-2024 Erythrocyte distribution width (RBC) [Entitic vol] 50.1 fL 35.1-43.9 [facility] Hematocrit Auto (Bld) [Volum e fraction]Ordered By: Solo Calderón on 01-05-2024 Hematocrit (Bld) [Volume fraction] 28.4 % 37-47 [facility] Immature granulocytes/100 WB C Auto (Bld)Ordered By: Solo Calderón on 01-05-2024 Immature granulocytes/100 WBC (Bld) 0.500 % 0.0-0.9 [facility] Comment on above: IG% - Immature Granu locytes (promyelocytes, myelocytes and metamyelocytes) > 1% indicates that a LEFT SHIFT is Present. Laboratory - Chemistry and C hemistry - challengeOrdered By: Solo Calderón on 01-05-2024 Albumin/Globulin [Mass ratio] 0.7 {ratio} 0.9-2.4 [facility] ALP [Catalytic activity/Vol] 201 U/L 45-117 [facility] ALT [Catalytic activity/Vol] 26 U/L 13-56 [facility] CO2 [Moles/Vol] 24.0 mmol/L 21.0-32.0 [facility] Cobalamin (Vitamin B12) [Mass/Vol] 1503 pg/mL 211-911 [facility] Globulin (S) [Mass/Vol] 3.5 g/dL 2.2-4.2 [facility] [facility] Natriuretic peptide B (Bld) [Mass/Vol] 279.9 pg/mL 0-100 [facility] Urea nitrogen/Creatinine [Mass ratio] 8.1 mg/mg 10-20 [facility] Laboratory - Hematology and Cell countsOrdered By: Solo Calderón on 01-05-2024 MCH (RBC) [Entitic mass] 36.7 pg 27.0-32.0 [facility] MCHC (RBC) [Mass/Vol] 34.9 g/dL 32-36 [facility] Nucleated RBC/100 WBC (Bld) [Ratio] 0 % 0-5 [facility] Platelet mean volume (Bld) [Entitic vol] 9.6 fL 6.2-12.0 [facility] Platelets (Bld) [#/Vol] 165 10*3/uL 150-450 [facility] No Panel InformationOrdered By: Solo Calderón on 01-05-2024 Estimated GFR (MDRD) Amer 122 mL/min >60 [facility] Comment on above: GFR Calc Estimated GFR (MDRD) Non-Af Amer 101 mL/min >60 [facility] Comment on above: Non- GFR Calc Folate 9.10 ng/mL 3.1-55.4 [facility] RBC Auto (Bld) [#/Vol]Ordere d By: Solo Calderón on 01-05-2024 RBC (Bld) [#/Vol] 2.70 10*6/uL 4.2-5.4 [facility] Serum or plasma calcium seth urement (mass/volume)Ordered By: Solo Calderón on 01-05-2024 Calcium [Mass/Vol] 8.6 mg/dL 8.5-10.1 [facility] Serum or plasma creatinine m easurement (mass/volume)Ordered By: Solo Calderón on 01-05-2024 Creatinine [Mass/Vol] 0.62 mg/dL 0.55-1.02 [facility] Comment on above: The validity of the calculated GFR & GFRAA in patients over 70 years has not been determined. Clinical correlation is essential. Serum or plasma thiamine mitul surement (mass/volume)Ordered By: Solo Calderón on 01-05-2024 Thiamine [Mass/Vol] 78.3 nmol/L 66.5-200.0 [facility] Serum or plasma urea nitroge n measurement (mass/volume)Ordered By: Solo Calderón on 01-05-2024 Urea nitrogen [Mass/Vol] 5 mg/dL 7-18 [facility] Serum or plasma zinc measure ment (mass/volume)Ordered By: Solo Calderón on 01-05-2024 Zinc [Mass/Vol] 50 ug/dL 44-115 [facility] Comment on above: Detection Limit = 5P erformed at: - [facility] [id number] Director: Lesly Carty MD, Phone: [phone] Thin prep Papanicolaou smear with manual screeningOrdered By: Solo Calderón on 01-05-2024 Thin prep Papanicolaou smear with manual screening 2.6 g/dL 3.2-5.0 [facility] Thin prep Papanicolaou smear with manual screening 43 U/L 15-37 [facility] Thin prep Papanicolaou smear with manual screening 9 5-15 [facility] Basophil percentageOrdered B y: Harrison Roper on 12-30-2023 Bilirubin [Mass/Vol] 4.20 mg/dL 0.20-1.00 [facility] Comment on above: For patients on eltr ombopag therapy, use of Dimension [place] TBIL is not recommended. Chloride [Moles/Vol] 109 mmol/L 98-107 [facility] Glucose [Mass/Vol] 88 mg/dL 74-106 [facility] Potassium [Moles/Vol] 3.8 mmol/L 3.5-5.1 [facility] Protein [Mass/Vol] 5.1 g/dL 6.4-8.2 [facility] Sodium [Moles/Vol] 134 mmol/L 136-145 [facility] Direct bilirubinOrdered By: Harrison Roper on 12-30-2023 Bilirubin.direct [Mass/Vol] 3.14 mg/dL 0.00-0.30 [facility] Laboratory - Chemistry and C hemistry - challengeOrdered By: Harrison Roper on 12-30-2023 ALP [Catalytic activity/Vol] 185 U/L 45-117 [facility] ALT [Catalytic activity/Vol] 35 U/L 13-56 [facility] CO2 [Moles/Vol] 21.0 mmol/L 21.0-32.0 [facility] Globulin (S) [Mass/Vol] 2.9 g/dL 2.2-4.2 [facility] Urea nitrogen/Creatinine [Mass ratio] 25.5 mg/mg 10-20 [facility] No Panel InformationOrdered By: Harrison Roper on 12-30-2023 Estimated Creatinine Clearance Calc 62.03 ml/min [facility] Estimated GFR (MDRD) Amer 140 mL/min >60 [facility] Comment on above: GFR Calc Estimated GFR (MDRD) Non-Af Amer 116 mL/min >60 [facility] Comment on above: Non- GFR Calc Serum or plasma calcium seth urement (mass/volume)Ordered By: Harrison Roper on 12-30-2023 Calcium [Mass/Vol] 8.2 mg/dL 8.5-10.1 [facility] Serum or plasma creatinine m easurement (mass/volume)Ordered By: Harrison Roper on 12-30-2023 Creatinine [Mass/Vol] 0.55 mg/dL 0.55-1.02 [facility] Comment on above: The validity of the calculated GFR & GFRAA in patients over 70 years has not been determined. Clinical correlation is essential. Serum or plasma urea nitroge n measurement (mass/volume)Ordered By: Harrison Roper on 12-30-2023 Urea nitrogen [Mass/Vol] 14 mg/dL 7-18 [facility] Thin prep Papanicolaou smear with manual screeningOrdered By: Harrison Roper on 12-30-2023 Thin prep Papanicolaou smear with manual screening 2.2 g/dL 3.2-5.0 [facility] Thin prep Papanicolaou smear with manual screening 94 U/L 15-37 [facility] Thin prep Papanicolaou smear with manual screening 4 5-15 [facility] Absolute lymphocyte countOrd ered By: Harrison Roper on 12-29-2023 Lymphocytes Auto (Unsp spec) [#/Vol] 0.36 10*3/uL 0.83-4.51 [facility] Automated lymphocyte count a s percentage of total leukocytesOrdered By: Harrison Roper on 12-29-2023 Lymphocytes/100 WBC Auto (Unsp spec) 7.5 % 19-41 [facility] Basophil percentageOrdered B y: Harrison Roper on 12-29-2023 Basophils/100 WBC (Bld) 0.0 % 0-1 [facility] Eosinophils/100 WBC (Bld) 0.0 % 0-5 [facility] Hemoglobin (Bld) [Mass/Vol] 8.2 g/dL 12.0-15.0 [facility] Monocytes/100 WBC (Bld) 2.5 % 0-10 [facility] Neutrophils (Bld) [#/Vol] 4.3 10*3/uL 2.0-7.7 [facility] Neutrophils/100 WBC (Bld) 89.6 % 47-70 [facility] WBC (Bld) [#/Vol] 4.8 10*3/uL 4.4-11.0 [facility] Determination of erythrocyte mean corpuscular volume (MCV)Ordered By: Harrison Roper on 12-29-2023 MCV (RBC) [Entitic vol] 109.0 fL 81-99 [facility] Erythrocyte distribution wid th ratioOrdered By: Harrison Roper on 12-29-2023 Erythrocyte distribution width (RBC) [Ratio] 13.1 % 11.6-14.6 [facility] Erythrocyte distribution wid th standard deviationOrdered By: Harrison Roper on 12-29-2023 Erythrocyte distribution width (RBC) [Entitic vol] 51.9 fL 35.1-43.9 [facility] Hematocrit Auto (Bld) [Volum e fraction]Ordered By: Harrison Roper on 12-29-2023 Hematocrit (Bld) [Volume fraction] 24.3 % 37-47 [facility] Immature granulocytes/100 WB C Auto (Bld)Ordered By: Harrison Roper on 12-29-2023 Immature granulocytes/100 WBC (Bld) 0.400 % 0.0-0.9 [facility] Comment on above: IG% - Immature Granu locytes (promyelocytes, myelocytes and metamyelocytes) > 1% indicates that a LEFT SHIFT is Present. Laboratory - Chemistry and C hemistry - challengeOrdered By: Harrison Roper on 12-29-2023 Magnesium [Mass/Vol] 2.1 mg/dL 1.6-2.6 [facility] Laboratory - Hematology and Cell countsOrdered By: Harrison Roper on 12-29-2023 MCH (RBC) [Entitic mass] 36.8 pg 27.0-32.0 [facility] MCHC (RBC) [Mass/Vol] 33.7 g/dL 32-36 [facility] Nucleated RBC/100 WBC (Bld) [Ratio] 0 % 0-5 [facility] Platelet mean volume (Bld) [Entitic vol] 9.8 fL 6.2-12.0 [facility] Platelets (Bld) [#/Vol] 73 10*3/uL 150-450 [facility] RBC Auto (Bld) [#/Vol]Ordere d By: Harrison Roper on 12-29-2023 RBC (Bld) [#/Vol] 2.23 10*6/uL 4.2-5.4 [facility] Basophil percentageOrdered B y: Dalton Izaguirre on 12-28-2023 Basophil percentage 3.2 mg/dL 2.5-4.9 [facility] Blood manual differential co mment interpretation (narrative result)Ordered By: Harrison Roper on 12-28-2023 Manual differential comment Emir (Bld) [Interp] SCANNED [facility] Blood platelet adequacy dete ction by light microscopyOrdered By: Harrison Roper on 12-28-2023 Platelets LM Ql (Bld) MOD DEC ADEQ [facility] Blood polychromasia detectio n by light microscopyOrdered By: Harrison Roper on 12-28-2023 Polychromasia LM Ql (Bld) 1+ [facility] Erythrocyte [place] bod y detectionOrdered By: Harrison Roper on 12-28-2023 [place] bodies LM Ql (Bld) RARE [facility] Laboratory - CoagulationOrde red By: Harrison Roper on 12-28-2023 INR Coag (Bld) [Relative time] 1.4 {INR} [facility] PT Coag (PPP) [Time] 16.9 s 11.7-14.9 [facility] Laboratory - Hematology and Cell countsOrdered By: Harrison Roper on 12-28-2023 Anisocytosis Ql (Bld) 2+ [facility] Macrocytes detectionOrdered By: Harrison Roper on 12-28-2023 Macrocytes Ql (Bld) 2+ [facility] Ovalocyte detectionOrdered B y: Harrison Roper on 12-28-2023 Ovalocytes LM Ql (Bld) [facility] Review by pathologistOrdered By: Harrison Roper on 12-28-2023 Pathologist review Emir (Unsp spec) [Interp] Reviewed [facility] Comment on above: Previous reported re sult: Shira benton Edited by: FRAN on 12/28/23:1530Pancytopenia.LeukopeniaMacrocytic anemia.Moderate Thrombocytopenia.Clinical correlation necessary.Ari Anderson M.D. 12/28/23 AMENDED REPORT 12/28/23 1530 PATH REV previously reported as: Shira benton Absolute lymphocyte countOrd ered By: Yair Lazcano on 12-27-2023 Lymphocytes Auto (Unsp spec) [#/Vol] 1.61 10*3/uL 0.83-4.51 [facility] Activated partial thrombopla stin time (aPTT) in platelet poor plasma by coagulation aOrdered By: Yair Lazcano on 12-27-2023 aPTT Coag (PPP) [Time] 32.0 s 24.1-36.2 [facility] Automated lymphocyte count a s percentage of total leukocytesOrdered By: Yair Lazcano on 12-27-2023 Lymphocytes/100 WBC Auto (Unsp spec) 19.2 % 19-41 [facility] Basophil percentageOrdered B y: Harrison Judson on 12-27-2023 Basophil percentage 3.5 mg/dL 2.5-4.9 [facility] Basophil percentageOrdered B y: Yair Lazcano on 12-27-2023 Basophils/100 WBC (Bld) 0.2 % 0-1 [facility] Bilirubin [Mass/Vol] 7.40 mg/dL 0.20-1.00 [facility] Comment on above: For patients on eltr ombopag therapy, use of [place] TBIL is not recommended. Chloride [Moles/Vol] 100 mmol/L 98-107 [facility] Eosinophils/100 WBC (Bld) 0.4 % 0-5 [facility] Glucose [Mass/Vol] 99 mg/dL 74-106 [facility] Hemoglobin (Bld) [Mass/Vol] 10.1 g/dL 12.0-15.0 [facility] Monocytes/100 WBC (Bld) 6.7 % 0-10 [facility] Neutrophils (Bld) [#/Vol] 6.1 10*3/uL 2.0-7.7 [facility] Neutrophils/100 WBC (Bld) 73.0 % 47-70 [facility] Potassium [Moles/Vol] 3.2 mmol/L 3.5-5.1 [facility] Protein [Mass/Vol] 6.2 g/dL 6.4-8.2 [facility] Sodium [Moles/Vol] 138 mmol/L 136-145 [facility] WBC (Bld) [#/Vol] 8.4 10*3/uL 4.4-11.0 [facility] Basophil percentage 0-5 SEEN /hpf 0-5 [facility] Bilirubin Test strip Ql (U)O rdered By: Yair Lazcano on 12-27-2023 Bilirubin Ql (U) 1 mg/dL Negative [facility] Comment on above: COLOR OF URINE MAY A FFECT DIPSTICK RESULTS. Determination of erythrocyte mean corpuscular volume (MCV)Ordered By: Yair Lazcano on 12-27-2023 MCV (RBC) [Entitic vol] 106.8 fL 81-99 [facility] Direct bilirubinOrdered By: Yair Lazcano on 12-27-2023 Bilirubin.direct [Mass/Vol] 4.50 mg/dL 0.00-0.30 [facility] Erythrocyte distribution wid th ratioOrdered By: Yair Lazcano on 12-27-2023 Erythrocyte distribution width (RBC) [Ratio] 12.8 % 11.6-14.6 [facility] Erythrocyte distribution wid th standard deviationOrdered By: Yair Lazcano on 12-27-2023 Erythrocyte distribution width (RBC) [Entitic vol] 50.0 fL 35.1-43.9 [facility] Hematocrit Auto (Bld) [Volum e fraction]Ordered By: Yair Lazcano on 12-27-2023 Hematocrit (Bld) [Volume fraction] 29.7 % 37-47 [facility] Immature granulocytes/100 WB C Auto (Bld)Ordered By: Yair Lazcano on 12-27-2023 Immature granulocytes/100 WBC (Bld) 0.500 % 0.0-0.9 [facility] Comment on above: IG% - Immature Granu locytes (promyelocytes, myelocytes and metamyelocytes) > 1% indicates that a LEFT SHIFT is Present. Ketones Test strip Ql (U)Ord ered By: Yair Lazcano on 12-27-2023 Ketones Ql (U) 5 mg/dl Negative [facility] Laboratory - Chemistry and C hemistry - challengeOrdered By: Yair Lazcano on 12-27-2023 ALP [Catalytic activity/Vol] 218 U/L 45-117 [facility] ALT [Catalytic activity/Vol] 23 U/L 13-56 [facility] CO2 [Moles/Vol] 30.0 mmol/L 21.0-32.0 [facility] Globulin (S) [Mass/Vol] 3.6 g/dL 2.2-4.2 [facility] Lipase [Catalytic activity/Vol] 31 U/L 13-75 [facility] Comment on above: Please note:LIPASE r evised reference range effective 22. New Lipase methodology. Expected to produce lower values than the previous assay method. NEW Reference Range: 13 - 75 U/L Urea nitrogen/Creatinine [Mass ratio] 50.8 mg/mg 10-20 [facility] Laboratory - Chemistry and C hemistry - challengeOrdered By: Harrison Roper on 12-27-2023 Magnesium [Mass/Vol] 1.5 mg/dL 1.6-2.6 [facility] Laboratory - CoagulationOrde red By: Yair Lazcano on 12-27-2023 INR Coag (Bld) [Relative time] 1.3 {INR} [facility] PT Coag (PPP) [Time] 15.7 s 11.7-14.9 [facility] Laboratory - Hematology and Cell countsOrdered By: Yair Lazcano on 12-27-2023 MCH (RBC) [Entitic mass] 36.3 pg 27.0-32.0 [facility] MCHC (RBC) [Mass/Vol] 34.0 g/dL 32-36 [facility] Nucleated RBC/100 WBC (Bld) [Ratio] 0 % 0-5 [facility] Platelet mean volume (Bld) [Entitic vol] 9.5 fL 6.2-12.0 [facility] Platelets (Bld) [#/Vol] 102 10*3/uL 150-450 [facility] Lower GI hemoglobin IA Ql (S tl)Ordered By: Yair Lazcano on 12-27-2023 Stool Occult Blood (KENDRA) Positive [facility] Mucus LM Ql (Urine sed)Order ed By: Yair Lazcano on 12-27-2023 Mucus Ql (Urine sed) 0 SEEN /hpf [facility] Nitrite Test strip Ql (U)Ord ered By: Yair Lazcano on 12-27-2023 Nitrite Ql (U) Negative Negative [facility] No Panel InformationOrdered By: Yair Lazcano on 12-27-2023 Estimated GFR (MDRD) Amer 104 mL/min >60 [facility] Comment on above: GFR Calc Estimated GFR (MDRD) Non-Af Amer 86 mL/min >60 [facility] Comment on above: Non- GFR Calc Urine RBC 0-5 SEEN /hpf 0-5 [facility] Protein Test strip Ql (U)Ord ered By: Yair Lazcano on 12-27-2023 Protein Ql (U) 15 mg/dl Negative [facility] RBC Auto (Bld) [#/Vol]Ordere d By: Yair Lazcano on 12-27-2023 RBC (Bld) [#/Vol] 2.78 10*6/uL 4.2-5.4 [facility] Serum or plasma calcium seth urement (mass/volume)Ordered By: Yair Lazcano on 12-27-2023 Calcium [Mass/Vol] 9.6 mg/dL 8.5-10.1 [facility] Serum or plasma creatinine m easurement (mass/volume)Ordered By: Yair Lazcano on 12-27-2023 Creatinine [Mass/Vol] 0.71 mg/dL 0.55-1.02 [facility] Comment on above: The validity of the calculated GFR & GFRAA in patients over 70 years has not been determined. Clinical correlation is essential. Serum or plasma urea nitroge n measurement (mass/volume)Ordered By: Yair Lazcano on 12-27-2023 Urea nitrogen [Mass/Vol] 36 mg/dL 7-18 [facility] Squamous epithelial cells de tection in urine sediment by light microscopyOrdered By: Yair Lazcano on 12-27-2023 Epithelial cells.squamous LM Ql (Urine sed) 0 SEEN /hpf 5-10 [facility] Thin prep Papanicolaou smear with manual screeningOrdered By: Yair Lazcano on 12-27-2023 Thin prep Papanicolaou smear with manual screening 2.6 g/dL 3.2-5.0 [facility] Thin prep Papanicolaou smear with manual screening 57 U/L 15-37 [facility] Thin prep Papanicolaou smear with manual screening 8 5-15 [facility] Urine blood detectionOrdered By: Yair Lazcano on 12-27-2023 RBC Ql (U) 10 /ul Negative [facility] Urine clarityOrdered By: Arun Lazcano on 12-27-2023 Clarity (U) Sl. Cloudy Clear [facility] Urine color determinationOrd ered By: Yair Lazcano on 12-27-2023 Color (U) Yellow Yellow [facility] Urine glucose detectionOrder ed By: Yair Lazcano on 12-27-2023 Glucose Ql (U) Normal mg/dl Normal [facility] Urine leukocyte esterase det ection by dipstickOrdered By: Yair Lazcano on 12-27-2023 Leukocyte esterase Test strip Ql (U) 25 /ul Negative [facility] Urine pHOrdered By: Yair villegas on 12-27-2023 pH (U) 7.0 [pH] 5.0 - 8.0 [facility] Urine sediment bacteria coun t by microscopy (number/high power field)Ordered By: Yair Lazcano on 12-27-2023 Bacteria LM.HPF (Urine sed) [#/Area] 0 /[HPF] None Seen [facility] Urine specific gravity measu rementOrdered By: Yair Lazcano on 12-27-2023 Specific gravity (U) [Rel density] 1.005 1.002-1.03 0 [facility] Urine urobilinogen measureme ntOrdered By: Yair Lazcano on 12-27-2023 Urobilinogen Ql (U) 4 mg/dl Normal [facility] Basophil percentageOrdered B y: Solo Calderón on 11-15-2023 Ammonia (P) [Moles/Vol] 38.0 umol/L 11-32 [facility] Basophil percentageOrdered B y: Khanh Rodriguez on 11-15-2023 Chloride [Moles/Vol] 101 mmol/L 98-107 [facility] Glucose [Mass/Vol] 97 mg/dL 74-106 [facility] Potassium [Moles/Vol] 4.1 mmol/L 3.5-5.1 [facility] Sodium [Moles/Vol] 134 mmol/L 136-145 [facility] Laboratory - Chemistry and C hemistry - challengeOrdered By: Khanh Rodriguez on 11-15-2023 CO2 [Moles/Vol] 25.0 mmol/L 21.0-32.0 [facility] Urea nitrogen/Creatinine [Mass ratio] 10.7 mg/mg 10-20 [facility] No Panel InformationOrdered By: Khanh Rodriguez on 11-15-2023 Estimated GFR (MDRD) Amer 136 mL/min >60 [facility] Comment on above: GFR Calc Estimated GFR (MDRD) Non-Af Amer 113 mL/min >60 [facility] Comment on above: Non- GFR Calc Vitamin D 25-Hydroxy 66.3 ng/mL [facility] Comment on above: Vitamin D 25(OH) Sta tus Range Deficiency <20 ng/mL (50nmol/L) Insufficiency 20 - 30 ng/mL (50 - 75 nmol/L) Sufficiency 30 - 100 ng/mL (75 - 250 nmol/L) Toxicity >100 ng/mL (>250 nmol/L) No Panel InformationOrdered By: Solo Calderón on 11-15-2023 Folate 1.60 ng/mL 3.1-55.4 [facility] Serum or plasma calcium seth urement (mass/volume)Ordered By: Khanh Rodriguez on 11-15-2023 Calcium [Mass/Vol] 9.2 mg/dL 8.5-10.1 [facility] Serum or plasma creatinine m easurement (mass/volume)Ordered By: Khanh Rodriguez on 11-15-2023 Creatinine [Mass/Vol] 0.56 mg/dL 0.55-1.02 [facility] Comment on above: The validity of the calculated GFR & GFRAA in patients over 70 years has not been determined. Clinical correlation is essential. Serum or plasma thiamine mitul surement (mass/volume)Ordered By: Solo Calderón on 11-15-2023 Thiamine [Mass/Vol] 69.8 nmol/L 66.5-200.0 [facility] Comment on above: Performed at: [address] [id number] Director: Lesly Carty MD, Phone: [phone] Serum or plasma urea nitroge n measurement (mass/volume)Ordered By: Khanh Rodriguez on 11-15-2023 Urea nitrogen [Mass/Vol] 6 mg/dL 7-18 [facility] Thin prep Papanicolaou smear with manual screeningOrdered By: Khanh Rodriguez on 11-15-2023 Thin prep Papanicolaou smear with manual screening 8 5-15 [facility] Basophil percentageOrdered B y: Khanh Rodriguez on 11-03-2023 Chloride [Moles/Vol] 92 mmol/L 98-107 [facility] Glucose [Mass/Vol] 105 mg/dL 74-106 [facility] Comment on above: Fasting Glucose resu lt from 100 to 125 mg/dL suggests IMPAIRED HOMEOSTASIS per A.D.A. criteria. Potassium [Moles/Vol] 2.9 mmol/L 3.5-5.1 [facility] Sodium [Moles/Vol] 130 mmol/L 136-145 [facility] Laboratory - Chemistry and C hemistry - challengeOrdered By: Khanh Rodriguez on 11-03-2023 CO2 [Moles/Vol] 30.0 mmol/L 21.0-32.0 [facility] Natriuretic peptide B (Bld) [Mass/Vol] 494.5 pg/mL 0-100 [facility] Urea nitrogen/Creatinine [Mass ratio] 15.2 mg/mg 10-20 [facility] No Panel InformationOrdered By: Khanh Rodriguez on 11-03-2023 Estimated GFR (MDRD) Amer 114 mL/min >60 [facility] Comment on above: GFR Calc Estimated GFR (MDRD) Non-Af Amer 94 mL/min >60 [facility] Comment on above: Non- GFR Calc Serum or plasma calcium seth urement (mass/volume)Ordered By: Khanh Rodriguez on 11-03-2023 Calcium [Mass/Vol] 9.5 mg/dL 8.5-10.1 [facility] Serum or plasma creatinine m easurement (mass/volume)Ordered By: Khanh Rodriguez on 11-03-2023 Creatinine [Mass/Vol] 0.66 mg/dL 0.55-1.02 [facility] Comment on above: The validity of the calculated GFR & GFRAA in patients over 70 years has not been determined. Clinical correlation is essential. Serum or plasma urea nitroge n measurement (mass/volume)Ordered By: Khanh Rodriguez on 11-03-2023 Urea nitrogen [Mass/Vol] 10 mg/dL 7-18 [facility] Thin prep Papanicolaou smear with manual screeningOrdered By: Khanh Rodriguez on 11-03-2023 Thin prep Papanicolaou smear with manual screening 8 5-15 [facility] Basophil percentageOrdered B y: Shabbir Galaviz on 10-26-2023 Chloride [Moles/Vol] 87 mmol/L 98-107 [facility] Glucose [Mass/Vol] 124 mg/dL 74-106 [facility] Comment on above: Fasting Glucose resu lt from 100 to 125 mg/dL suggests IMPAIRED HOMEOSTASIS per A.D.A. criteria. Hemoglobin (Bld) [Mass/Vol] 11.6 g/dL 12.0-15.0 [facility] Potassium [Moles/Vol] 3.4 mmol/L 3.5-5.1 [facility] Comment on above: Moderate Hemolysis, Result may be falsely increased. Sodium [Moles/Vol] 125 mmol/L 136-145 [facility] WBC (Bld) [#/Vol] 5.2 10*3/uL 4.4-11.0 [facility] Determination of erythrocyte mean corpuscular volume (MCV)Ordered By: Shabbir Galaviz on 10-26-2023 MCV (RBC) [Entitic vol] 102.6 fL 81-99 [facility] Erythrocyte distribution wid th ratioOrdered By: Shabbir Galaviz on 10-26-2023 Erythrocyte distribution width (RBC) [Ratio] 15.9 % 11.6-14.6 [facility] Erythrocyte distribution wid th standard deviationOrdered By: Shabbir Galaviz on 10-26-2023 Erythrocyte distribution width (RBC) [Entitic vol] 58.5 fL 35.1-43.9 [facility] Hematocrit Auto (Bld) [Volum e fraction]Ordered By: Shabbir Galaviz on 10-26-2023 Hematocrit (Bld) [Volume fraction] 31.1 % 37-47 [facility] Laboratory - Chemistry and C hemistry - challengeOrdered By: Shabbir Galaviz on 10-26-2023 CO2 [Moles/Vol] 30.0 mmol/L 21.0-32.0 [facility] Urea nitrogen/Creatinine [Mass ratio] 9.0 mg/mg 10-20 [facility] Laboratory - Hematology and Cell countsOrdered By: Shabbir Galaviz on 10-26-2023 MCH (RBC) [Entitic mass] 38.3 pg 27.0-32.0 [facility] MCHC (RBC) [Mass/Vol] 37.3 g/dL 32-36 [facility] Platelet mean volume (Bld) [Entitic vol] 9.3 fL 6.2-12.0 [facility] Platelets (Bld) [#/Vol] 121 10*3/uL 150-450 [facility] No Panel InformationOrdered By: Shabbir Galaviz on 10-26-2023 Estimated Creatinine Clearance Calc 58.50 ml/min [facility] Estimated GFR (MDRD) Amer 111 mL/min >60 [facility] Comment on above: GFR Calc Estimated GFR (MDRD) Non-Af Amer 92 mL/min >60 [facility] Comment on above: Non- GFR Calc RBC Auto (Bld) [#/Vol]Ordere d By: Shabbir Galaviz on 10-26-2023 RBC (Bld) [#/Vol] 3.03 10*6/uL 4.2-5.4 [facility] Serum or plasma calcium seth urement (mass/volume)Ordered By: Shabbir Galaviz on 10-26-2023 Calcium [Mass/Vol] 8.9 mg/dL 8.5-10.1 [facility] Serum or plasma creatinine m easurement (mass/volume)Ordered By: Shabbir Galaviz on 10-26-2023 Creatinine [Mass/Vol] 0.67 mg/dL 0.55-1.02 [facility] Comment on above: The validity of the calculated GFR & GFRAA in patients over 70 years has not been determined. Clinical correlation is essential. Serum or plasma urea nitroge n measurement (mass/volume)Ordered By: Shabbir Galaviz on 10-26-2023 Urea nitrogen [Mass/Vol] 6 mg/dL 7-18 [facility] Thin prep Papanicolaou smear with manual screeningOrdered By: Shabbir Galaviz on 10-26-2023 Thin prep Papanicolaou smear with manual screening 8 5-15 [facility] Anaerobic cultureOrdered By: Mariela Martines on 08-16-2023 Bacteria identified Anaer cx Nom (Unsp spec) No growth in 5 days. [facility] Bacteria identified Anaer cx Nom (Unsp spec) No growth in 5 days. [facility] Bacteria identified Cx Nom ( Wound)Ordered By: Mariela Martines on 08-16-2023 Wound Culture Acinetobacter baumannii [facility] Wound Culture Acinetobacter baumannii [facility] Gram stain for investigation of transfusion reactionOrdered By: Mariela Martines on 08-16-2023 Microscopic observation Gram stain Nom (Unsp spec) [facility] Microscopic observation Gram stain Nom (Unsp spec) [facility] No Panel InformationOrdered By: Nabeel Patel on 07-10-2023 Miscellaneous Test Comment MAILED SPECIMEN [facility] Basophil percentageOrdered B y: Uday Brooks on 06-08-2023 Bilirubin [Mass/Vol] 1.70 mg/dL 0.20-1.00 [facility] Comment on above: For patients on eltr ombopag therapy, use of Dimension Thicket TBIL is not recommended. Chloride [Moles/Vol] 98 mmol/L 98-107 [facility] Glucose [Mass/Vol] 111 mg/dL 74-106 [facility] Comment on above: Fasting Glucose resu lt from 100 to 125 mg/dL suggests IMPAIRED HOMEOSTASIS per A.D.A. criteria. Potassium [Moles/Vol] 3.8 mmol/L 3.5-5.1 [facility] Protein [Mass/Vol] 6.8 g/dL 6.4-8.2 [facility] Sodium [Moles/Vol] 132 mmol/L 136-145 [facility] WBC (Bld) [#/Vol] 5.1 10*3/uL 4.4-11.0 [facility] Blood erythrocytes count (nu mber/volume)Ordered By: Uday Brooks on 06-08-2023 RBC (Bld) [#/Vol] 3.40 10*6/uL 4.2-5.4 [facility] Blood hemoglobin measurement (mass/volume)Ordered By: Uday Brooks on 06-08-2023 Hemoglobin (Bld) [Mass/Vol] 12.2 g/dL 12.0-15.0 [facility] Blood platelet mean volumeOr dered By: Uday Brooks on 06-08-2023 Platelet mean volume (Bld) [Entitic vol] 8.8 fL 6.2-12.0 [facility] Determination of erythrocyte mean corpuscular volume (MCV)Ordered By: Uday Brooks on 06-08-2023 MCV (RBC) [Entitic vol] 100.9 fL 81-99 [facility] Hematocrit Auto (Bld) [Volum e fraction]Ordered By: Uday Brooks on 06-08-2023 Hematocrit (Bld) [Volume fraction] 34.3 % 37-47 [facility] INR in Blood by Coagulation assayOrdered By: Uday Brooks on 06-08-2023 INR Coag (Bld) [Relative time] 1.2 {INR} [facility] Laboratory - Chemistry and C hemistry - challengeOrdered By: Uday Brooks on 06-08-2023 ALP [Catalytic activity/Vol] 170 U/L 45-117 [facility] ALT [Catalytic activity/Vol] 20 U/L 13-56 [facility] CO2 [Moles/Vol] 30.0 mmol/L 21.0-32.0 [facility] Globulin (S) [Mass/Vol] 3.9 g/dL 2.2-4.2 [facility] Urea nitrogen/Creatinine [Mass ratio] 15.6 mg/mg 10-20 [facility] Laboratory - CoagulationOrde red By: Uday Brooks on 06-08-2023 aPTT Coag (Bld) [Time] 33.6 s 24.1-36.2 [facility] PT Coag (PPP) [Time] 15.0 s 11.7-14.9 [facility] Laboratory - Hematology and Cell countsOrdered By: Uday Brooks on 06-08-2023 Erythrocyte distribution width (RBC) [Entitic vol] 47.0 fL 35.1-43.9 [facility] Erythrocyte distribution width (RBC) [Ratio] 12.6 % 11.6-14.6 [facility] M[facility] (RBC) [[facility]itic mass] [facility] [Mass/Vol]Or dered By: Uday Brooks on 06-08-2023 MCHC (RBC) [Mass/Vol] 35.6 g/dL 32-36 [facility] No Panel InformationOrdered By: Uday Brooks on 06-08-2023 Estimated GFR (MDRD) Amer 118 mL/min >60 [facility] Comment on above: GFR Calc Estimated GFR (MDRD) Non-Af Amer 97 mL/min >60 [facility] Comment on above: Non- GFR Calc Platelets bldOrdered By: Anton Brooks on 06-08-2023 Platelets (Bld) [#/Vol] 109 10*3/uL 150-450 [facility] Serum or plasma albumin seth urement (mass/volume)Ordered By: Uday Brooks on 06-08-2023 Albumin [Mass/Vol] 2.9 g/dL 3.2-5.0 [facility] Serum or plasma albumin/glob ulin mass ratioOrdered By: Uday Brooks on 06-08-2023 Albumin/Globulin [Mass ratio] 0.7 {ratio} 0.9-2.4 [facility] Serum or plasma calcium seth urement (mass/volume)Ordered By: Uday Brooks on 06-08-2023 Calcium [Mass/Vol] 9.1 mg/dL 8.5-10.1 [facility] Serum or plasma creatinine m easurement (mass/volume)Ordered By: Uday Brooks on 06-08-2023 Creatinine [Mass/Vol] 0.64 mg/dL 0.55-1.02 [facility] Comment on above: The validity of the calculated GFR & GFRAA in patients over 70 years has not been determined. Clinical correlation is essential. Serum or plasma urea nitroge n measurement (mass/volume)Ordered By: Uday Brooks on 06-08-2023 Urea nitrogen [Mass/Vol] 10 mg/dL 7-18 [facility] Thin prep Papanicolaou smear with manual screeningOrdered By: Uday Brooks on 06-08-2023 Thin prep Papanicolaou smear with manual screening 35 U/L 15-37 [facility] Thin prep Papanicolaou smear with manual screening 4 5-15 [facility] Anaerobic cultureOrdered By: Mariela Martines on 05-23-2023 Bacteria identified Anaer cx Nom (Unsp spec) No anaerobic bacteria isolated. [facility] Bacteria identified Cx Nom ( Wound)Ordered By: Mariela Martines on 05-23-2023 Wound Culture Staphylococcus aureus [facility] Wound Culture Staphylococcus epidermidis [facility] Gram stain for investigation of transfusion reactionOrdered By: Mariela Martines on 05-23-2023 Microscopic observation Gram stain Nom (Unsp spec) [facility] Basophil percentageOrdered B y: Khanh Rodriguez on 05-03-2023 Ammonia (P) [Moles/Vol] 50.0 umol/L -32 [facility] Bilirubin [Mass/Vol] 2.60 mg/dL 0.20-1.00 [facility] Comment on above: For patients on eltr ombopag therapy, use of Dimension Thicket TBIL is not recommended. Chloride [Moles/Vol] 100 mmol/L 98-107 [facility] Glucose [Mass/Vol] 101 mg/dL 74-106 [facility] Comment on above: Fasting Glucose resu lt from 100 to 125 mg/dL suggests IMPAIRED HOMEOSTASIS per A.D.A. criteria. Potassium [Moles/Vol] 4.4 mmol/L 3.5-5.1 [facility] Protein [Mass/Vol] 7.0 g/dL 6.4-8.2 [facility] Sodium [Moles/Vol] 133 mmol/L 136-145 [facility] Laboratory - Chemistry and C hemistry - challengeOrdered By: Khanh Rodriguez on 05-03-2023 ALP [Catalytic activity/Vol] 299 U/L 45-117 [facility] ALT [Catalytic activity/Vol] 30 U/L 13-56 [facility] Amylase [Catalytic activity/Vol] 1353 U/L 5-55 [facility] CO2 [Moles/Vol] 27.0 mmol/L 21.0-32.0 [facility] Globulin (S) [Mass/Vol] 4.1 g/dL 2.2-4.2 [facility] Urea nitrogen/Creatinine [Mass ratio] 13.8 mg/mg 10-20 [facility] No Panel InformationOrdered By: Khanh Rodriguez on 05-03-2023 Estimated GFR (MDRD) Amer 115 mL/min >60 [facility] Comment on above: GFR Calc Estimated GFR (MDRD) Non-Af Amer 95 mL/min >60 [facility] Comment on above: Non- GFR Calc Serum or plasma albumin seth urement (mass/volume)Ordered By: Khanh Rodriguez on 05-03-2023 Albumin [Mass/Vol] 2.9 g/dL 3.2-5.0 [facility] Serum or plasma albumin/glob ulin mass ratioOrdered By: Khanh Rodriguez on 05-03-2023 Albumin/Globulin [Mass ratio] 0.7 {ratio} 0.9-2.4 [facility] Serum or plasma calcium seth urement (mass/volume)Ordered By: Khanh Rodriguez on 05-03-2023 Calcium [Mass/Vol] 9.2 mg/dL 8.5-10.1 [facility] Serum or plasma creatinine m easurement (mass/volume)Ordered By: Khanh Rodriguez on 05-03-2023 Creatinine [Mass/Vol] 0.65 mg/dL 0.55-1.02 [facility] Comment on above: The validity of the calculated GFR & GFRAA in patients over 70 years has not been determined. Clinical correlation is essential. Serum or plasma urea nitroge n measurement (mass/volume)Ordered By: Khanh Rodriguez on 05-03-2023 Urea nitrogen [Mass/Vol] 9 mg/dL 7-18 [facility] Thin prep Papanicolaou smear with manual screeningOrdered By: Khanh Rodriguez on 05-03-2023 Thin prep Papanicolaou smear with manual screening 70 U/L 15-37 [facility] Thin prep Papanicolaou smear with manual screening 6 5-15 [facility] Absolute lymphocyte countOrd ered By: Khanh Rodriguez on 04-26-2023 Lymphocytes Auto (Unsp spec) [#/Vol] 1.05 10*3/uL 0.83-4.51 [facility] Basophil percentageOrdered B y: Khanh Rodriguez on 04-26-2023 Basophils/100 WBC (Bld) 0.8 % 0-1 [facility] Bilirubin [Mass/Vol] 3.10 mg/dL 0.20-1.00 [facility] Comment on above: For patients on eltr ombopag therapy, use of Dimension Thicket TBIL is not recommended. Chloride [Moles/Vol] 96 mmol/L 98-107 [facility] Eosinophils/100 WBC (Bld) 0.8 % 0-5 [facility] Glucose [Mass/Vol] 107 mg/dL 74-106 [facility] Comment on above: Fasting Glucose resu lt from 100 to 125 mg/dL suggests IMPAIRED HOMEOSTASIS per A.D.A. criteria. Neutrophils (Bld) [#/Vol] 3.4 10*3/uL 2.0-7.7 [facility] Neutrophils/100 WBC (Bld) 68.5 % 47-70 [facility] Potassium [Moles/Vol] 3.9 mmol/L 3.5-5.1 [facility] Protein [Mass/Vol] 6.9 g/dL 6.4-8.2 [facility] Sodium [Moles/Vol] 131 mmol/L 136-145 [facility] WBC (Bld) [#/Vol] 5.0 10*3/uL 4.4-11.0 [facility] Blood erythrocytes count (nu mber/volume)Ordered By: Khanh Rodriguez on 04-26-2023 RBC (Bld) [#/Vol] 3.32 10*6/uL 4.2-5.4 [facility] Blood hemoglobin measurement (mass/volume)Ordered By: Khanh Rodriguez on 04-26-2023 Hemoglobin (Bld) [Mass/Vol] 12.0 g/dL 12.0-15.0 [facility] Blood lymphocytes/100 leukoc ytesOrdered By: Khanh Rodriguez on 04-26-2023 Lymphocytes/100 WBC (Bld) 21.2 % 19-41 [facility] Blood monocytes/100 leukocyt esOrdered By: Khanh Rodriguez on 04-26-2023 Monocytes/100 WBC (Bld) 8.3 % 0-10 [facility] Blood platelet mean volumeOr dered By: Khanh Rodriguez on 04-26-2023 Platelet mean volume (Bld) [Entitic vol] 8.9 fL 6.2-12.0 [facility] Determination of erythrocyte mean corpuscular volume (MCV)Ordered By: Khanh Rodriguez on 04-26-2023 MCV (RBC) [Entitic vol] 103.6 fL 81-99 [facility] Hematocrit Auto (Bld) [Volum e fraction]Ordered By: valerionorthforkfortino Rodriguez on 04-26-2023 Hematocrit (Bld) [Volume fraction] 34.4 % 37-47 [facility] Laboratory - Chemistry and C hemistry - challengeOrdered By: valerionorthforkfortino Changgloria on 04-26-2023 ALP [Catalytic activity/Vol] 258 U/L 45-117 [facility] ALT [Catalytic activity/Vol] 24 U/L 13-56 [facility] CO2 [Moles/Vol] 28.0 mmol/L 21.0-32.0 [facility] Globulin (S) [Mass/Vol] 4.0 g/dL 2.2-4.2 [facility] Urea nitrogen/Creatinine [Mass ratio] 12.9 mg/mg 10-20 [facility] Laboratory - Hematology and Cell countsOrdered By: Shonnanorthforkfortino Rodriguez on 04-26-2023 Erythrocyte distribution width (RBC) [Entitic vol] 51.7 fL 35.1-43.9 [facility] Erythrocyte distribution width (RBC) [Ratio] 13.5 % 11.6-14.6 [facility] Immature granulocytes/100 WBC (Bld) 0.400 % 0.0-0.9 [facility] Comment on above: IG% - Immature Granu locytes (promyelocytes, myelocytes and metamyelocytes) > 1% indicates that a LEFT SHIFT is Present. MCH (RBC) [Entitic mass] 36.1 pg 27.0-32.0 [facility] Nucleated RBC/100 WBC (Bld) [Ratio] 0 % 0-5 [facility] MCHC Auto (RBC) [Mass/Vol]Or dered By: Khanh Rodriguez on 04-26-2023 MCHC (RBC) [Mass/Vol] 34.9 g/dL 32-36 [facility] No Panel InformationOrdered By: Khanh Rodriguez on 04-26-2023 Estimated GFR (MDRD) Amer 122 mL/min >60 [facility] Comment on above: GFR Calc Estimated GFR (MDRD) Non-Af Amer 101 mL/min >60 [facility] Comment on above: Non- GFR Calc Platelets bldOrdered By: Francisco Rodriguez on 04-26-2023 Platelets (Bld) [#/Vol] 141 10*3/uL 150-450 [facility] Serum or plasma albumin seth urement (mass/volume)Ordered By: Khanh Rodriguez on 04-26-2023 Albumin [Mass/Vol] 2.9 g/dL 3.2-5.0 [facility] Serum or plasma albumin/glob ulin mass ratioOrdered By: Khanh Rodriguez on 04-26-2023 Albumin/Globulin [Mass ratio] 0.7 {ratio} 0.9-2.4 [facility] Serum or plasma calcium seth urement (mass/volume)Ordered By: Khanh Rodriguez on 04-26-2023 Calcium [Mass/Vol] 9.3 mg/dL 8.5-10.1 [facility] Serum or plasma creatinine m easurement (mass/volume)Ordered By: Khanh Rodriguez on 04-26-2023 Creatinine [Mass/Vol] 0.62 mg/dL 0.55-1.02 [facility] Comment on above: The validity of the calculated GFR & GFRAA in patients over 70 years has not been determined. Clinical correlation is essential. Serum or plasma urea nitroge n measurement (mass/volume)Ordered By: Khanh Rodriguez on 04-26-2023 Urea nitrogen [Mass/Vol] 8 mg/dL 7-18 [facility] Thin prep Papanicolaou smear with manual screeningOrdered By: Khanh Rodriguez on 04-26-2023 Thin prep Papanicolaou smear with manual screening 74 U/L 15-37 [facility] Thin prep Papanicolaou smear with manual screening 7 5-15 [facility] Anaerobic cultureOrdered By: Mariela Martines on 02-23-2023 Bacteria identified Anaer cx Nom (Unsp spec) No anaerobic bacteria isolated. [facility] Bacteria identified Cx Nom ( Wound)Ordered By: Mariela Martines on 02-23-2023 Wound Culture Staphylococcus epidermidis [facility] Gram stain for investigation of transfusion reactionOrdered By: Mariela Martines on 02-23-2023 Microscopic observation Gram stain Nom (Unsp spec) [facility] Anaerobic cultureOrdered By: Mariela Martines on 01-29-2023 Bacteria identified Anaer cx Nom (Unsp spec) No anaerobic bacteria isolated. [facility] Bacteria identified Cx Nom ( Wound)Ordered By: Mariela Martines on 01-28-2023 Wound Culture Pseudomonas aeruginosa [facility] Wound Culture Staphylococcus pseudintermediu [facility] Anaerobic cultureOrdered By: Mariela Martines on 01-25-2023 Bacteria identified Anaer cx Nom (Unsp spec) No anaerobic bacteria isolated. [facility] Bacteria identified Cx Nom ( Wound)Ordered By: Mariela Martines on 01-25-2023 Wound Culture Pseudomonas aeruginosa [facility] Wound Culture Staphylococcus pseudintermediu [facility] Gram stain for investigation of transfusion reactionOrdered By: Mariela Martines on 01-25-2023 Microscopic observation Gram stain Nom (Unsp spec) [facility] Absolute lymphocyte countOrd ered By: Dr. Rodriguez on 01-20-2023 Lymphocytes Auto (Unsp spec) [#/Vol] 1.02 10*3/uL 0.83-4.51 [facility] Basophil percentageOrdered B y: Dr. Rodriguez on 01-20-2023 Basophils/100 WBC (Bld) 1.0 % 0-1 [facility] Bilirubin [Mass/Vol] 2.80 mg/dL 0.20-1.00 [facility] Comment on above: For patients on eltr ombopag therapy, use of Dimension [place]icket TBIL is not recommended. Chloride [Moles/Vol] 81 mmol/L 98-107 [facility] Cholesterol [Mass/Vol] 191 mg/dL <200 [facility] Comment on above: <200 mg/dL Desirable 200-240 mg/dL Borderline >240 mg/dL High Risk Eosinophils/100 WBC (Bld) 1.4 % 0-5 [facility] Glucose [Mass/Vol] 114 mg/dL 74-106 [facility] Comment on above: Fasting Glucose resu lt from 100 to 125 mg/dL suggests IMPAIRED HOMEOSTASIS per A.D.A. criteria. Neutrophils (Bld) [#/Vol] 3.3 10*3/uL 2.0-7.7 [facility] Neutrophils/100 WBC (Bld) 64.6 % 47-70 [facility] Potassium [Moles/Vol] 2.7 mmol/L 3.5-5.1 [facility] Comment on above: Critical Result(s) C alled at: 13:29:15 01/20/2023 by: Bebo Bolivar. Estevan Olivarez RN (EUGENE). Results read back by same. Protein [Mass/Vol] 7.3 g/dL 6.4-8.2 [facility] Sodium [Moles/Vol] 125 mmol/L 136-145 [facility] Triglyceride [Mass/Vol] 70 mg/dL <199 [facility] Comment on above: The drugs N-Acetylcy steine and Metamizole may falsely depress this assay.Serum Triglycerides Reference Interval Normal <150 mg/dL Borderline high 150 - 199 mg/dL High 200 - 499 mg/dL Very High > or = 500 mg/dL WBC (Bld) [#/Vol] 5.1 10*3/uL 4.4-11.0 [facility] Blood erythrocytes count (nu mber/volume)Ordered By: Dr. Rodriguez on 01-20-2023 RBC (Bld) [#/Vol] 3.14 10*6/uL 4.2-5.4 [facility] Blood hemoglobin measurement (mass/volume)Ordered By: Dr. Rodriguez on 01-20-2023 Hemoglobin (Bld) [Mass/Vol] 11.6 g/dL 12.0-15.0 [facility] Blood lymphocytes/100 leukoc ytesOrdered By: Dr. Rodriguez on 01-20-2023 Lymphocytes/100 WBC (Bld) 19.9 % 19-41 [facility] Blood monocytes/100 leukocyt esOrdered By: Dr. Rodriguez on 01-20-2023 Monocytes/100 WBC (Bld) 12.7 % 0-10 [facility] Blood platelet mean volumeOr dered By: Dr. Rodriguez on 01-20-2023 Platelet mean volume (Bld) [Entitic vol] 9.7 fL 6.2-12.0 [facility] Determination of erythrocyte mean corpuscular volume (MCV)Ordered By: Dr. Rodriguez on 01-20-2023 MCV (RBC) [Entitic vol] 101.3 fL 81-99 [facility] Hematocrit Auto (Bld) [Volum e fraction]Ordered By: Dr. Rodriguez on 01-20-2023 Hematocrit (Bld) [Volume fraction] 31.8 % 37-47 [facility] Laboratory - Chemistry and C hemistry - challengeOrdered By: Dr. Rodriguez on 01-20-2023 ALP [Catalytic activity/Vol] 203 U/L 45-117 [facility] ALT [Catalytic activity/Vol] 26 U/L 13-56 [facility] CO2 [Moles/Vol] 33.0 mmol/L 21.0-32.0 [facility] Free T4 [Mass/Vol] 1.45 ng/dL 0.76-1.46 [facility] Globulin (S) [Mass/Vol] 4.1 g/dL 2.2-4.2 [facility] Urea nitrogen/Creatinine [Mass ratio] 17.1 mg/mg 10-20 [facility] Laboratory - Hematology and Cell countsOrdered By: Dr. Rodriguez on 01-20-2023 Erythrocyte distribution width (RBC) [Entitic vol] 58.4 fL 35.1-43.9 [facility] Erythrocyte distribution width (RBC) [Ratio] 15.9 % 11.6-14.6 [facility] Immature granulocytes/100 WBC (Bld) 0.400 % 0.0-0.9 [facility] Comment on above: IG% - Immature Granu locytes (promyelocytes, myelocytes and metamyelocytes) > 1% indicates that a LEFT SHIFT is Present. MCH (RBC) [Entitic mass] 36.9 pg 27.0-32.0 [facility] Nucleated RBC/100 WBC (Bld) [Ratio] 0 % 0-5 [facility] MCHC Auto (RBC) [Mass/Vol]Or dered By: Dr. Rodriguez on 01-20-2023 MCHC (RBC) [Mass/Vol] 36.5 g/dL 32-36 [facility] No Panel InformationOrdered By: Dr. Rodriguez on 01-20-2023 Estimated GFR (MDRD) Amer 168 mL/min >60 [facility] Comment on above: GFR Calc Estimated GFR (MDRD) Non-Af Amer 139 mL/min >60 [facility] Comment on above: Non- GFR Calc Thyroid Stimulating Hormone (TSH) 0.99 uIU/mL 0.358-3.74 [facility] Platelets bldOrdered By: Dr. Rodriguez on 01-20-2023 Platelets (Bld) [#/Vol] 114 10*3/uL 150-450 [facility] Serum or plasma albumin seth urement (mass/volume)Ordered By: Dr. Rodriguez on 01-20-2023 Albumin [Mass/Vol] 3.2 g/dL 3.2-5.0 [facility] Serum or plasma albumin/glob ulin mass ratioOrdered By: Dr. Rodriguez on 01-20-2023 Albumin/Globulin [Mass ratio] 0.8 {ratio} 0.9-2.4 [facility] Serum or plasma calcium seth urement (mass/volume)Ordered By: Dr. Rodriguez on 01-20-2023 Calcium [Mass/Vol] 9.2 mg/dL 8.5-10.1 [facility] Serum or plasma cholesterol in HDL measurement (mass/volume)Ordered By: Dr. Rodriguez on 01-20-2023 Cholesterol in HDL [Mass/Vol] 119 mg/dL >40 [facility] Comment on above: The drugs N-Acetylcy steine and Metamizole may falsely depress this assay. Reference Range HDL <40 mg/dL Low HDL Cholesterol HDL >or= 60 mg/dL High HDL Cholesterol Serum or plasma cholesterol in VLDL measurement (mass/volume)Ordered By: Dr. Rodriguez on 01-20-2023 Cholesterol in VLDL [Mass/Vol] 14 mg/dL 5-40 [facility] Serum or plasma creatinine m easurement (mass/volume)Ordered By: Dr. Rodriguez on 01-20-2023 Creatinine [Mass/Vol] 0.47 mg/dL 0.55-1.02 [facility] Comment on above: The validity of the calculated GFR & GFRAA in patients over 70 years has not been determined. Clinical correlation is essential. Serum or plasma low density lipoprotein (LDL) cholesterol measurement (mass/volume)Ordered By: Dr. Rodriguez on 01-20-2023 Cholesterol in LDL [Mass/Vol] 58 mg/dL 0-130 [facility] Serum or plasma urea nitroge n measurement (mass/volume)Ordered By: Dr. Rodriguez on 01-20-2023 Urea nitrogen [Mass/Vol] 8 mg/dL 7-18 [facility] Thin prep Papanicolaou smear with manual screeningOrdered By: Dr. Rodriguez on 01-20-2023 Thin prep Papanicolaou smear with manual screening 79 U/L 15-37 [facility] Thin prep Papanicolaou smear with manual screening 11 5-15 [facility] Basophil percentageon 2021 Chloride [Moles/Vol] 93 mmol/L 98-107 [facility] Work Phone: Glucose [Mass/Vol] 86 mg/dL 74-106 [facility] Work Phone: Potassium [Moles/Vol] 3.7 mmol/L 3.5-5.1 [facility] Work Phone: Sodium [Moles/Vol] 131 mmol/L 136-145 [facility] Work Phone: Laboratory - Chemistry and C hemistry - challengeon 05-31-2022 CO2 [Moles/Vol] 28.0 mmol/L 21.0-32.0 [facility] Work Phone: Urea nitrogen/Creatinine [Mass ratio] 13.2 mg/mg 10-20 [facility] Work Phone: No Panel Informationon 05-31 Estimated GFR (MDRD) Amer 147 mL/min >60 [facility] Work Phone: Comment on above: GFR Calc Estimated GFR (MDRD) Non-Af Amer 121 mL/min >60 [facility] Work Phone: Comment on above: Non- GFR Calc Serum or plasma calcium seth urement (mass/volume)on 05-31-2022 Calcium [Mass/Vol] 9.4 mg/dL 8.5-10.1 [facility] Work Phone: Serum or plasma creatinine m easurement (mass/volume)on 05-31-2022 Creatinine [Mass/Vol] 0.53 mg/dL 0.55-1.02 [facility] Work Phone: Comment on above: The validity of the calculated GFR & GFRAA in patients over 70 years has not been determined. Clinical correlation is essential. Serum or plasma urea nitroge n measurement (mass/volume)on 05-31-2022 Urea nitrogen [Mass/Vol] 7 mg/dL 7-18 [facility] Work Phone: Thin prep Papanicolaou smear with manual screeningon 05-31-2022 Thin prep Papanicolaou smear with manual screening 10 5-15 [facility] Work Phone: Basophil percentageon 2021 Bilirubin [Mass/Vol] 1.70 mg/dL 0.20-1.00 [facility] Work Phone: Comment on above: For patients on eltr ombopag therapy, use of Dimension Thicket TBIL is not recommended. Chloride [Moles/Vol] 93 mmol/L 98-107 [facility] Work Phone: Glucose [Mass/Vol] 133 mg/dL 74-106 [facility] Work Phone: Comment on above: Fasting Glucose resu lt greater than or equal to 126 mg/dL suggests DIABETES MELLITUS per A.D.A. criteria. Potassium [Moles/Vol] 3.4 mmol/L 3.5-5.1 [facility] Work Phone: Protein [Mass/Vol] 7.5 g/dL 6.4-8.2 [facility] Work Phone: Sodium [Moles/Vol] 129 mmol/L 136-145 [facility] Work Phone: Laboratory - Chemistry and C hemistry - challengeon 04-11-2022 ALP [Catalytic activity/Vol] 186 U/L 45-117 [facility] Work Phone: ALT [Catalytic activity/Vol] 56 U/L 13-56 [facility] Work Phone: CO2 [Moles/Vol] 30.0 mmol/L 21.0-32.0 [facility] Work Phone: Globulin (S) [Mass/Vol] 4.0 g/dL 2.2-4.2 [facility] Work Phone: Urea nitrogen/Creatinine [Mass ratio] 20.0 mg/mg 10-20 [facility] Work Phone: No Panel Informationon 04-11 Estimated GFR (MDRD) Amer 127 mL/min >60 [facility] Work Phone: Comment on above: GFR Calc Estimated GFR (MDRD) Non-Af Amer 105 mL/min >60 [facility] Work Phone: Comment on above: Non- GFR Calc Vitamin D 25-Hydroxy 59.9 ng/mL [facility] Work Phone: Comment on above: Vitamin D 25(OH) Sta tus Range Deficiency <20 ng/mL (50nmol/L) Insufficiency 20 - 30 ng/mL (50 - 75 nmol/L) Sufficiency 30 - 100 ng/mL (75 - 250 nmol/L) Toxicity >100 ng/mL (>250 nmol/L) Serum or plasma albumin seth urement (mass/volume)on 04-11-2022 Albumin [Mass/Vol] 3.5 g/dL 3.2-5.0 [facility] Work Phone: Serum or plasma albumin/glob ulin mass ratioon 04-11-2022 Albumin/Globulin [Mass ratio] 0.9 {ratio} 0.9-2.4 [facility] Work Phone: Serum or plasma calcium seth urement (mass/volume)on 04-11-2022 Calcium [Mass/Vol] 9.1 mg/dL 8.5-10.1 [facility] Work Phone: Serum or plasma creatinine m easurement (mass/volume)on 04-11-2022 Creatinine [Mass/Vol] 0.60 mg/dL 0.55-1.02 [facility] Work Phone: Comment on above: The validity of the calculated GFR & GFRAA in patients over 70 years has not been determined. Clinical correlation is essential. Serum or plasma urea nitroge n measurement (mass/volume)on 04-11-2022 Urea nitrogen [Mass/Vol] 12 mg/dL 7-18 [facility] Work Phone: Thin prep Papanicolaou smear with manual screeningon 04-11-2022 Thin prep Papanicolaou smear with manual screening 131 U/L 15-37 [facility] Work Phone: Thin prep Papanicolaou smear with manual screening 6 5-15 [facility] Work Phone: Absolute lymphocyte counton 03-25-2022 Lymphocytes Auto (Unsp spec) [#/Vol] 1.37 10*3/uL 0.83-4.51 [facility] Work Phone: Basophil percentageon 2021 Basophils/100 WBC (Bld) 1.1 % 0-1 [facility] Work Phone: Bilirubin [Mass/Vol] 1.50 mg/dL 0.20-1.00 [facility] Work Phone: Comment on above: For patients on eltr ombopag therapy, use of Dimension Thicket TBIL is not recommended. Chloride [Moles/Vol] 88 mmol/L 98-107 [facility] Work Phone: Eosinophils/100 WBC (Bld) 2.5 % 0-5 [facility] Work Phone: Glucose [Mass/Vol] 105 mg/dL 74-106 [facility] Work Phone: Comment on above: Fasting Glucose resu lt from 100 to 125 mg/dL suggests IMPAIRED HOMEOSTASIS per A.D.A. criteria. Neutrophils (Bld) [#/Vol] 3.0 10*3/uL 2.0-7.7 [facility] Work Phone: Neutrophils/100 WBC (Bld) 56.5 % 47-70 [facility] Work Phone: [phone] Potassium [Moles/Vol] 3.7 mmol/L 3.5-5.1 [facility] Work Phone: Protein [Mass/Vol] 8.0 g/dL 6.4-8.2 [facility] Work Phone: [phone] Sodium [Moles/Vol] 129 mmol/L 136-145 [facility] Work Phone: WBC (Bld) [#/Vol] 5.2 10*3/uL 4.4-11.0 [facility] Work Phone: Blood erythrocytes count (nu mber/volume)on 03-25-2022 RBC (Bld) [#/Vol] 4.46 10*6/uL 4.2-5.4 [facility] Work Phone: Blood hemoglobin measurement (mass/volume)on 03-25-2022 Hemoglobin (Bld) [Mass/Vol] 12.7 g/dL 12.0-15.0 [facility] Work Phone: Blood lymphocytes/100 leukoc yteson 03-25-2022 Lymphocytes/100 WBC (Bld) 26.1 % 19-41 [facility] Work Phone: [phone] Blood monocytes/100 leukocyt eson 03-25-2022 Monocytes/100 WBC (Bld) 13.4 % 0-10 [facility] Work Phone: Blood platelet mean volumeon 03-25-2022 Platelet mean volume (Bld) [Entitic vol] 9.0 fL 6.2-12.0 [facility] Work Phone: Determination of erythrocyte mean corpuscular volume (MCV)on 03-25-2022 MCV (RBC) [Entitic vol] 83.4 fL 81-99 [facility] Work Phone: Hematocrit Auto (Bld) [Volum e fraction]on 03-25-2022 Hematocrit (Bld) [Volume fraction] 37.2 % 37-47 [facility] Work Phone: Laboratory - Chemistry and C hemistry - challengeon 03-25-2022 ALP [Catalytic activity/Vol] 164 U/L 45-117 [facility] Work Phone: ALT [Catalytic activity/Vol] 45 U/L 13-56 [facility] Work Phone: CO2 [Moles/Vol] 30.0 mmol/L 21.0-32.0 [facility] Work Phone: Globulin (S) [Mass/Vol] 4.4 g/dL 2.2-4.2 [facility] Work Phone: Urea nitrogen/Creatinine [Mass ratio] 15.3 mg/mg 10-20 [facility] Work Phone: Laboratory - Hematology and Cell countson 03-25-2022 Erythrocyte distribution width (RBC) [Entitic vol] 55.1 fL 35.1-43.9 [facility] Work Phone: Erythrocyte distribution width (RBC) [Ratio] 18.3 % 11.6-14.6 [facility] Work Phone: Immature granulocytes/100 WBC (Bld) 0.400 % 0.0-0.9 [facility] Work Phone: Comment on above: IG% - Immature Granu locytes (promyelocytes, myelocytes and metamyelocytes) > 1% indicates that a LEFT SHIFT is Present. MCH (RBC) [Entitic mass] 28.5 pg 27.0-32.0 [facility] Work Phone: Nucleated RBC/100 WBC (Bld) [Ratio] 0 % 0-5 [facility] Work Phone: MCHC Auto (RBC) [Mass/Vol]on 03-25-2022 MCHC (RBC) [Mass/Vol] 34.1 g/dL 32-36 [facility] Work Phone: No Panel Informationon 03-25 Estimated GFR (MDRD) Amer 130 mL/min >60 [facility] Work Phone: Comment on above: GFR Calc Estimated GFR (MDRD) Non-Af Amer 108 mL/min >60 [facility] Work Phone: Comment on above: Non- GFR Calc Platelets bldon 03-25-2022 Platelets (Bld) [#/Vol] 203 10*3/uL 150-450 [facility] Work Phone: Serum or plasma albumin seth urement (mass/volume)on 03-25-2022 Albumin [Mass/Vol] 3.6 g/dL 3.2-5.0 [facility] Work Phone: Serum or plasma albumin/glob ulin mass ratioon 03-25-2022 Albumin/Globulin [Mass ratio] 0.8 {ratio} 0.9-2.4 [facility] Work Phone: Serum or plasma calcium seth urement (mass/volume)on 03-25-2022 Calcium [Mass/Vol] 9.7 mg/dL 8.5-10.1 [facility] Work Phone: Serum or plasma creatinine m easurement (mass/volume)on 03-25-2022 Creatinine [Mass/Vol] 0.59 mg/dL 0.55-1.02 [facility] Work Phone: Comment on above: The validity of the calculated GFR & GFRAA in patients over 70 years has not been determined. Clinical correlation is essential. Serum or plasma urea nitroge n measurement (mass/volume)on 03-25-2022 Urea nitrogen [Mass/Vol] 9 mg/dL 7-18 [facility] Work Phone: Thin prep Papanicolaou smear with manual screeningon 03-25-2022 Thin prep Papanicolaou smear with manual screening 113 U/L 15-37 [facility] Work Phone: Thin prep Papanicolaou smear with manual screening 11 5-15 [facility] Work Phone: CBC WITH AUTO DIFFon 021 BASO, ABSOLUTE (AUTO) 0.1 10 3/uL Normal 0.0-0.2 [facility] Comment on above: Performed By: #### C MP, CPK 1, CBC, TROP 1 #### Main Lab - [facility] [address] [place] [address] Basophils/100 WBC (Bld) 1.4 % High 0.0-1.0 [facility] Comment on above: Performed By: #### C MP, CPK 1, CBC, TROP 1 #### Main Lab - [facility] [address] EOSINOPHILS, ABSOLUTE (AUTO) 0.1 10 3/uL Normal 0.0-0.7 [facility] Comment on above: Performed By: #### C MP, CPK 1, CBC, TROP 1 #### Main Lab - [facility] [address] Eosinophils/100 WBC (Bld) 1.1 % Normal 0.0-5.0 [facility] Comment on above: Performed By: #### C MP, CPK 1, CBC, TROP 1 #### Main Lab - [facility] [address] [place] [address] Erythrocyte distribution width (RBC) [Ratio] 14.4 % High 11.5-14.0 [facility] Comment on above: Performed By: #### C MP, CPK 1, CBC, TROP 1 #### Main Lab - [facility] [address] [place] [address] Hematocrit (Bld) [Volume fraction] 32.4 % Low 34.8-45.0 [facility] Comment on above: Performed By: #### C MP, CPK 1, CBC, TROP 1 #### Main Lab - [facility] [address] [place], [place] [address] Hemoglobin (Bld) [Mass/Vol] 11.4 g/dL Low 11.6-14.9 [facility] Comment on above: Performed By: #### C MP, CPK 1, CBC, TROP 1 #### [facility] - [address] [address] LYMPHOCYTES, ABSOLUTE (AUTO) 1.2 10 3/uL Normal 1.0-3.5 [facility] Comment on above: Performed By: #### C MP, CPK 1, CBC, TROP 1 #### [facility] - [address] [address] Lymphocytes/100 WBC (Bld) 18.4 % Low 24.0-44.0 [facility] Comment on above: Performed By: #### C MP, CPK 1, CBC, TROP 1 #### [facility] - [address] [address] MCH (RBC) [Entitic mass] 36.4 pg High 27.0-31.0 [facility] Comment on above: Performed By: #### C MP, CPK 1, CBC, TROP 1 #### [facility] - [address] [address] MCHC (RBC) [Mass/Vol] 35.1 g/dL Normal 32.0-36.0 [facility] Comment on above: Performed By: #### C MP, CPK 1, CBC, TROP 1 #### [facility] - [address] [address] MCV (RBC) [Entitic vol] 103.6 fL High 78.0-100.0 [facility] Comment on above: Performed By: #### C MP, CPK 1, CBC, TROP 1 #### [address] [address] MONOCYTES, ABSOLUTE (AUTO) 0.7 10 3/uL Normal 0.2-0.8 [facility] Comment on above: Performed By: #### C MP, CPK 1, CBC, TROP 1 #### [facility] - [address] [address] Monocytes/100 WBC (Bld) 10.5 % High 1.7-9.3 [facility] Comment on above: Performed By: #### C MP, CPK 1, CBC, TROP 1 #### [facility] - [address] [address] NEUTROPHILS, ABSOLUTE (AUTO) 4.3 10 3/uL Normal 1.5-6.7 [facility] Comment on above: Performed By: #### C MP, CPK 1, CBC, TROP 1 #### [facility] - [address] [address] Neutrophils/100 WBC (Bld) 68.6 % High 36.0-66.0 [facility] Comment on above: Performed By: #### C MP, CPK 1, CBC, TROP 1 #### Main Lab - [address] [address] PLATELET COUNT 163 10 3/uL Normal 150-450 [facility] Comment on above: Performed By: #### C MP, CPK 1, CBC, TROP 1 #### [facility] - [address] [address] Platelet mean volume (Bld) [Entitic vol] 7.2 fL Normal 6.0-9.5 [facility] Comment on above: Performed By: #### C MP, CPK 1, CBC, TROP 1 #### [facility] - [address] [address] RED BLOOD COUNT 3.13 x10 6/uL Low 3.89-5.30 [facility] Comment on above: Performed By: #### C MP, CPK 1, CBC, TROP 1 #### [facility] - [address] [address] WHITE BLOOD COUNT 6.3 10 3/uL Normal 4.0-10.5 [facility] Comment on above: Performed By: #### C MP, CPK 1, CBC, TROP 1 #### Main Lab - [address] [address] COMPREHENSIVE METABOLIC PANE Satinder 05-05-2021 Albumin [Mass/Vol] 3.5 g/dL Low 3.9-5.0 [facility] Comment on above: Performed By: #### C MP, CPK 1, CBC, TROP 1 #### Main Lab - [facility] [address] [place], [place] [address] Albumin/Globulin [Mass ratio] 1.0 {ratio} Low 1.1-1.8 [facility] Comment on above: Performed By: #### C MP, CPK 1, CBC, TROP 1 #### Main Lab - [facility] [address] [place], [place] [address] ALP [Catalytic activity/Vol] 122 U/L Normal 43-122 [facility] Comment on above: Performed By: #### C MP, CPK 1, CBC, TROP 1 #### Main Lab - [facility] [address] [place] [address] ALT [Catalytic activity/Vol] 25 U/L Normal 7-56 [facility] Comment on above: Performed By: #### C MP, CPK 1, CBC, TROP 1 #### Main Lab - [facility] [address] [place] [address] Anion gap [Moles/Vol] 16 mmol/L Normal 9-18 [facility] Comment on above: Performed By: #### C MP, CPK 1, CBC, TROP 1 #### Main Lab - [facility] [address] [place] [address] AST [Catalytic activity/Vol] 44 U/L High 8-39 [facility] Comment on above: Performed By: #### C MP, CPK 1, CBC, TROP 1 #### Main Lab - [facility] [address] [place] [address] Bilirubin [Mass/Vol] 1.7 mg/dL High 0.2-1.3 [facility] Comment on above: Performed By: #### C MP, CPK 1, CBC, TROP 1 #### Main Lab - [facility] [address] [place] [address] BUN/CREATININE RATIO 21.3 Ratio Normal 5.0-42.0 [facility] Comment on above: Performed By: #### C MP, CPK 1, CBC, TROP 1 #### Main Lab - [facility] [address] [place] [address] Calcium [Mass/Vol] 9.2 mg/dL Normal 8.4-10.2 [facility] Comment on above: Performed By: #### C MP, CPK 1, CBC, TROP 1 #### [facility] [place], [place] [address] Chloride [Moles/Vol] 94 mmol/L Low 98-107 [facility] Comment on above: Performed By: #### C MP, CPK 1, CBC, TROP 1 #### Main Lab - [address] [address] CO2 [Moles/Vol] 25 mmol/L Normal 22-31 [facility] Comment on above: Performed By: #### C MP, CPK 1, CBC, TROP 1 #### Main Lab - [address] [address] Creatinine [Mass/Vol] 0.61 mg/dL Low 0.80-1.30 [facility] Comment on above: Performed By: #### C MP, CPK 1, CBC, TROP 1 #### [facility] - [address] [address] ESTIMATED CREAT CLEARANCE 78.32 Normal [facility] Comment on above: Result Comment: COCK CROFT-GAULT FORMULA 1972 Performed By: #### C MP, CPK 1, CBC, TROP 1 #### Main Lab - [address] [address] ESTIMATED GLOMERULAR FILT RATE > 60.000 Normal [facility] Comment on above: Performed By: #### C MP, CPK 1, CBC, TROP 1 #### Main Lab - [address] [address] Globulin (S) [Mass/Vol] 3.5 g/dL Normal [facility] Comment on above: Performed By: #### C MP, CPK 1, CBC, TROP 1 #### Main Lab - [address] [address] Glucose [Mass/Vol] 95 mg/dL Normal 70-99 [facility] Comment on above: Result Comment: The glucose range is based on recommendations from the [place] [employer] for fasting blood glucose range. Performed By: #### C MP, CPK 1, CBC, TROP 1 #### Main Lab - [facility] [place], [place] [address] Potassium [Moles/Vol] 3.7 mmol/L Normal 3.6-5.0 [facility] Comment on above: Performed By: #### C MP, CPK 1, CBC, TROP 1 #### Main Lab - [facility] [address] [place], [place] [address] Protein [Mass/Vol] 7.0 g/dL Normal 6.3-8.2 [facility] Comment on above: Performed By: #### C MP, CPK 1, CBC, TROP 1 #### Main Lab - [facility] [place], [place] [address] Sodium [Moles/Vol] 131 mmol/L Low 137-145 [facility] Comment on above: Performed By: #### C MP, CPK 1, CBC, TROP 1 #### Main Lab - [facility] [address] [place] [address] Urea nitrogen [Mass/Vol] 13 mg/dL Normal 7-21 [facility] Comment on above: Performed By: #### C MP, CPK 1, CBC, TROP 1 #### Main Lab - [facility] [address] [place] [address] AGE,PATIENT 70 Years Normal [facility] Comment on above: Performed By: #### C MP, CPK 1, CBC, TROP 1 #### Main Lab - [facility] [address] [place] [address] CREATINE KINASEon 05-05-2021 CK [Catalytic activity/Vol] 31 U/L Low 55-170 [facility] Comment on above: Performed By: #### C MP, CPK 1, CBC, TROP 1 #### Main Lab - [facility] [address] [place] [address] HEAD W/O CONTRASTon 05-05 CT HEAD W/O CONTRAST [facility] [address] [place] [address] Diagnostic Imaging Report : [id number] Signed Name: MARY ALICE GA MRUN: [id number] : 1950 Loc: ED Age / Sex: 70 / F ADM Status: REG ER ADM Date: 05/05/21 Room/Bed: Ordering Physician: Isaiah Bhakta PA-C Procedure: CT HEAD W/O CONTRAST Order Number(s): [id number] Ordered Date: 05/05/21 Ordered Time: 1241 EXAMINATION: [...] Tran Dictated Date/Time: 05/05/21 1322 Signed By: Dpiak Zapien MD, MD Signed Date/Time: 05/05/21 1331 Transcribed Date/Time: 05/05/21 1327 Normal [facility] ED Physician Documentationon 05-05-2021 ED Physician Documentation [address] [place] [address] Physician Documentation Signed: Name: MARY ALICE GA MRUN: [id number] : 1950 Loc: ED Age / Sex: [...] Lymphadenopathy, Me (more content not included)... Normal [facility] TROPONIN Ion 05-05-2021 Troponin I.cardiac [Mass/Vol] ng/mL Normal 0.0-0.03 [facility] Comment on above: Result Comment: Refe rence Interval < or = 0.03 ng/mL Clinical Correlation Needed 0.03 - 0.11 ng/mL AMI Cutoff, Presumptive = or > 0.12 ng/mL Performed By: #### C MP, CPK 1, CBC, TROP 1 #### Main Lab - [facility] [address] [place], [place] [id number] Waveform Imaging Reporton Waveform Imaging Report [facility] [address] [place] [address] Waveform Imaging Report : [id number] Signed Name: MARY ALICE GA MRUN: [id number] : 1950 Loc: ED Age / Sex: 70 / F ADM Status: DEP ER ADM Date: 05/05/21 Room/Bed: Ordering Physician: Isaiah Bhakta PA-C Procedure: EKG Order Number(s): [id number] Ordered Date: 05/05/21 Ordered Time: 1242 Test Date: 2021-05-05 12:52:46 Pat Name: MARY ALICE GA Department: ED Room: Gender: F Feed Miller: : 1950 Requested By: Isaiah Hughes Order Number: [id number] Reading MD: Shaq Lal Measurements Intervals [place] Rate: 63 P: 24 SD: 164 QRS: 13 QRSD: 92 T: 38 QT: 466 QTc: 478 Interpretive Statements Heart Rate: 63 SD Interval: 164 QRS Duration: 92 QT Interval: 466 QTc: 478 Interpretation: Sinus arrhythmia normal SD interval, normal QRS, normal QTC, normal axis, nonspecific ST changes, no STEMI Electronically Signed On 05-05-2021 19:06:10 EDT by Shaq Lal Dictated By: Shaq Lal MD Dictated Date/Time: 05/05/21 1252 Signed By: Shaq Lal MD, MD Signed Date/Time: 05/05/21 190 Transcribed Date/Time: Normal [facility] XR SACRUM/COCCYXon XR SACRUM/COCCYX [facility] [address] [place] [address] Diagnostic Imaging Report : [id number] Signed Name: MARY ALICE GA MRUN: [id number] : 1950 Loc: ED Age / Sex: 70 / F ADM Status: REG ER ADM Date: 05/05/21 Room/Bed: Ordering Physician: Isaiah Bhakta PA-C Procedure: XR SACRUM/COCCYX Order Number(s): [id number] Ordered Date: 05/05/21 Ordered Time: 1341 EXAMINATION: [...] 05/05/21 1423 Transcribed Date/Time: 05/05/21 1420 Normal [facility] CHL SCREEN MAMMO DIG W/ZANA BIon 06-25-2020 CHL SCREEN MAMMO DIG W/ZANA BI [facility] [address] [place] [address] Diagnostic Imaging Report : [id number] Signed Name: MARY ALICE GA MRUN: [id number] : 1950 Loc: CHL Age / Sex: 69 / F ADM Status: REG CLI ADM Date: 06/25/20 Room/Bed: Ordering Physician: Delores Faria MD Procedure: CHL SCREEN MAMMO DIG W/ZANA BI Order Number(s): [id number] Ordered Date: 06/25/20 Ordered Time: 0803 EXAMINATION: [...] 2D - BENIGN FINDINGS, DENSE BREASTS DISCLAIMER: [place] [employer] Recommendations for Breast Cancer [...] 06/25/20 1353 Transcribed Date/Time: 06/25/20 1349 Normal [facility] WOUND CULTUREon 01-14-2020 WOUND CULTURE SPARSE GROWTH PMN'S 1+ GRAM POSITIVE COCCI IN PAIRS pseaer 2+ gnr 2+ Normal [facility] Comment on above: Order Comment: Site: right leg Performed By: #### [id number] #### [employer] [place] [address] WOUND CULTUREon 12-23-2019 WOUND CULTURE SPARSE GROWTH NO ORGANISMS SEEN pseaer 1+ Normal [facility] Comment on above: Order Comment: Site: right lower leg Performed By: #### [id number] #### [address] [address] Annabelle 07-05-2019 CNPN Telephone (RHBATH) -- MARY ALICE GA ([id number]) 1950 F CHT Date Time Provider Department [...] * Take 20 mEq by mouth once kyesha* DICLOFENAC 1 % TOPICAL GEL Apply 2 [...] 19 CCP Antibody, IgG <15 Normal <20 [place] Comment on above: Result Comment: < 20 units: Negative 20-39 units: Weak Positive 40-59 units: Moderate Positive > 60 units: Strong Positive The following results were obtained with the [employer] QUANTA Lite CCP3 IgG ADDIE. Anti-CCP values obtained with different manufacturers' assay methods may not be used interchangeably. The magnitude of the reported IgG levels cannot be correlated to an endpoint titer. Performing Laboratory: [facility] [employer] [place] [address] Performed By: #### C CPX #### [place] [address] Hep B Core Ab,Totalon 2018 Hep B Core Ab,Total Negative Normal NEGAT [facility] Comment on above: Result Comment: Perf orming Laboratory: [facility] [employer] [address] [place] [address] Performed By: #### H BCTX #### [place] [address] Quantiferon (Rapd TB)on Quantiferon (Rapd TB) SEE BELOW Normal [facility] Comment on above: Result Comment: TB N IL 0.04 IU/mL TB1 Ag minus Nil 0.00 <0.35 IU/mL TB2 Ag minus Nil 0.00 <0.35 IU/mL Mitogen minus Nil >10 TB Result Negative NEGAT Interpretation SEE BELOW No evidence of current or previous infection with Mycobacterium tuberculosis. Performing Laboratory: [facility] [place] [address] Performed By: #### Q UANX #### [facility] [address] [place] [address] Hep. B Surface Abon 06-06-20 19 Hep. B Surface Ab 68.6 mIU/mL Normal [facility] Comment on above: Result Comment: Hep B. Antibody < 10.0 mIU/mL is negative. Hep B. Antibody > or = 10.0 mIU/mL is positive. Performed By: #### A NTB #### [facility] [address] [place] [address] Hep. B Surface Agon 06-06-20 Hep.B Surface Ag Negative Normal Negative [facility] Comment on above: Performed By: #### H BSAG #### [facility] [address] [place] [address] Hepatitis C Antibodyon 06-06 Hepatitis C Ab Negative Normal Negative [facility] Comment on above: Performed By: #### H CVAB #### [place] [address] Total 25-OH Vitamin Don 10-0 Total 25-OH Vitamin D 33.2 ng/mL Normal 30.0-100.0 [facility] Comment on above: Performed By: #### 2 5VD1 #### [place] [address] CNOVon 06-05-2019 CNOV Office Visit (RHBATH ) -- MARY ALICE GA ([id number]) 1950 F T Date Time Provider Department [...] level: Not on file 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 [...] file Gets together: Not on file Attends hindu service: Not on file Active member of [...] on file Occupation: Employer And Job Title: [employer] (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) Years Of Education Completed: Not specified Marital [...] Rebecca Lei MD Referring Provider: ABDIRAHMAN CONLEY [[id number]] Allergies As of Date: 06/05/2019 Noted Allergy [...] [M15.0] Order(s):CCP ANTIBODY IGG [SQCCP] Order #: [id number] FUTURE HEP B SURF AG SCRN [SQHBSAG] Order #: [id number] FUTURE HEP B SURF AB QUANT [SQAHBSQ] Order #: [id number] FUTURE HEP C AB IA BLOOD [SQAHCV] Order #: [id number] FUTURE HEP B CORE AB TOTAL [SQAHBCOT] Order #: [id number] FUTURE BLOOD TB SCREEN, INCUBATED [SQINTPGP] Order #: [id number] FUTURE VITAMIN D 25 HYDROXY [SQVITD] Order #: [id number] FUTURE XR HAND GENERAL 3V PA/LAT/OBL LT [3410172] Order #: [id number] FUTURE XR HAND GENERAL 3V PA/LAT/OBL RT [[id number]] Order #: [id number] FUTURE US HAND/WRIST SYNOVIAL SCREEN RT [[id number]] Order #: [id number] FUTURE US HAND/WRIST SYNOVIAL SCREEN LT [[id number]] Order #: [id number] FUTURE CONSULT TO PHYSICAL THERAPY (AG) [[id number]] Order #: [id number]: 1 Prescriptions as of 06/05/2019 Sig: NADOLOL [...] Status:Closed by REBECCA LEI MD on 06/05/19 [facility] PROGRESSon 06-05-2019 PROGRESS HNO ID: [id number] Author: Rebecca Lei Service: ? 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 Rebecca Lei MD [facility] XR HAND 3V PA/LAT/OBL LTon 1 XR [...] correlation is recommended. Osteoarthritis is also noted. Airplane Technician: PSCB Transcribe Date/Time: Jun 06 2019 1:12P Dictated by : OTTO FLOR MD This examination was interpreted and the report reviewed and electronically signed by: OTTO FLOR MD on Jun 06 2019 1:14PM [facility] XR HAND 3V PA/LAT/OBL RTon 1 XR [...] correlation is recommended. Osteoarthritis is also noted. Airplane Technician: ABDIEL Transcribe Date/Time: Jun 06 2019 1:12P Dictated by : OTTO FLOR MD This examination was interpreted and the report reviewed and electronically signed by: OTTO FLOR MD on Jun 06 2019 1:14PM EST Normal [facility] HISTORY PHYSICALon HISTORY PHYSICAL HNO ID: [id number] thor: Lili Bates: GastroenterologyAuthor Type: PhysicianType: HANDPFiled: [...] August 16, 2017 : 8:51 AM PAGER: [id number] [facility] PT EDon 08-16-2017 PT ED HNO ID: [id number] thor: RANDY Aburto Rnervice: NursingAuthor Type: Registered NurseType: Patient EducationFiled: 08/16/2017 10:09 AMNote Text:POST OP LEARNING RESPONSEINSTRUCTION PROVIDED TO: Patient and family memberMETHOD OF INSTRUCTION: Written instruction - handoutsVerbal instructionPATIENT / FAMILY RESPONSE: Verbalizes understanding of: POST-OPERATIVEINSTRUCTIONS -Correct actions to take to reduce postoperative complicationsFOLLOW-UP PLAN: Complete - No need for follow-upSUPPLEMENTAL MATERIAL: NoneREFERRAL (RECOMMENDATION): NoneElectronically Signed By: Min Jim RN In Department: [facility] PT ED HNO ID: [id number] thor: Liseth (Rn) Pako, RNService: NursingAuthor Type: Registered NurseType: Patient EducationFiled: 08/16/2017 8:52 AMNote Text:PRE OP LEARNING ASSESSMENTPROCEDURE/SURGER Y: GI PROCEDURES: EGDREADINESS TO LEARNCOGNITIVE ABILITY: Alert and orientedMOTIVATION TO LEARN: InterestedFAMILY SUPPORT: High - Very involved in pt carePATIENT LEARNS BEST BY: Written Instruction - Hand-outsFACTORS AFFECTING LEARNING: NonePHYSICAL LIMITATIONS AFFECTING LEARNING: NoneElectronically Signed By: Liseth Min, RN In Department: [facility] SURGICAL PATHOLOGYon 017 SURGICAL PATHOLOGY Specimen #: [id number] Physician: LILI ALVAREZ M.D. FINAL DIAGNOSISStomach, antrum, [...] submitted in one cassette.Gross examination performed at [facility], [address] [place] [address] 08/16/2017 7:27:12 PMPatient ID #: [id number] of Report: 08/17/2017Date of Procedure: 08/16/2017Date of Receipt: 08/16/2017Submitted by: LILI ALVAREZ M.D.Location: MMMMENDDiagnostic interpretation performed at [facility], [address] [place] [address]. [facility] HOSPon 07-07-2017 HOSP Patient:Iris Ga FMRN: [...] notes entered within the past 30 days [facility] Bacteria identified Anaer cx Nom (Unsp spec) Anaerobic microbial culture No anaerobic bacteria isolated. [facility] Work Phone: Bacteria identified Cx Nom ( Wound) Wound Culture Staphylococcus epidermidis [facility] Work Phone: Wound Culture Negative [facility] Work Phone: Gram stain for investigation of transfusion reaction Microscopic observation Gram stain Nom (Unsp spec) [facility] Work Phone: Vital Signs Date Time Vital Sign Value Performing Clinician Silas aldana 05-21-2025 08:10-0400 Body height 162.[address] Khanh Rodriguez MD Work Phone: [facility] 05-21-2025 08:10-0400 Body mass index (BMI) [Ratio] 23.1 kg/m2 Dr. Khanh Rodriguez MD Work Phone: [facility] 05-21-2025 08:10-0400 Body temperature 97.6 [degF] Dr. Khanh Rodriguez MD Work Phone: [facility] 05-21-2025 08:10-0400 Body weight 61.[address] Khanh Rodriguez MD Work Phone: [facility] 05-21-2025 08:10-0400 Diastolic blood pressure 64 mm[Hg] Dr. Khanh Rodriguez MD Work Phone: [facility] 05-21-2025 08:10-0400 Heart rate 75 /min Dr. Khanh Rodriguez MD Work Phone: [facility] 05-21-2025 08:10-0400 Respiratory rate 16 /min Dr. Khanh Rodriguez MD Work Phone: [facility] 05-21-2025 08:10-0400 SaO2% (BldA) [Mass fraction] 100 % Dr. Khanh Rodriguez MD Work Phone: [facility] 05-21-2025 08:10-0400 Systolic blood pressure 104 mm[Hg] Dr. Khanh Rodriguez MD Work Phone: [facility] 05-08-2025 13:08-0400 Body height 154.[address] Khanh Rodriguez MD Work Phone: [facility] 05-08-2025 13:08-0400 Body mass index (BMI) [Ratio] 25.2 kg/m2 Dr. Khanh Rodriguez MD Work Phone: [facility] 05-08-2025 13:08-0400 Body weight 60.[address] Khanh Rodriguez MD Work Phone: [facility] 04-29-2025 12:50-0400 Body height 154.[address] Khanh Rodriguez MD Work Phone: [facility] 04-29-2025 12:50-0400 Body temperature 96.8 [degF] Dr. Khanh Rodriguez MD Work Phone: [facility] 04-29-2025 12:50-0400 Diastolic blood pressure 66 mm[Hg] Dr. Khanh Rodriguez MD Work Phone: [facility] 04-29-2025 12:50-0400 Heart rate 63 /min Dr. Khanh Rodriguez MD Work Phone: [facility] 04-29-2025 12:50-0400 Respiratory rate 18 /min Dr. Khanh Rodriguez MD Work Phone: [facility] 04-29-2025 12:50-0400 SaO2% (BldA) [Mass fraction] 97 % Dr. Khanh Rodriguez MD Work Phone: [facility] 04-29-2025 12:50-0400 Systolic blood pressure 128 mm[Hg] Dr. Khanh Rodriguez MD Work Phone: [facility] 04-25-2025 13:01-0400 Body height 154.[address] Khanh Rodriguez MD Work Phone: [facility] 04-25-2025 13:01-0400 Body mass index (BMI) [Ratio] 24.5 kg/m2 Dr. Khanh Rodriguez MD Work Phone: [facility] 04-25-2025 13:01-0400 Body temperature 97.2 [degF] Dr. Khanh Rodriguez MD Work Phone: [facility] 04-25-2025 13:01-0400 Body weight 58.[address] Khanh Rodriguez MD Work Phone: [facility] 04-25-2025 13:01-0400 Diastolic blood pressure 57 mm[Hg] Dr. Khanh Rodriguez MD Work Phone: [facility] 04-25-2025 13:01-0400 Heart rate 70 /min Dr. Khanh Rodriguez MD Work Phone: [facility] 04-25-2025 13:01-0400 Respiratory rate 16 /min Dr. Khanh Rodriguez MD Work Phone: [facility] 04-25-2025 13:01-0400 SaO2% (BldA) [Mass fraction] 99 % Dr. Khanh Rodriguez MD Work Phone: [facility] 04-25-2025 13:01-0400 Systolic blood pressure 103 mm[Hg] Dr. Khanh Rodriguez MD Work Phone: [facility] 03-28-2025 12:14-0400 Body height 154.[address] Khanh Rodriguez MD Work Phone: [facility] 03-28-2025 12:14-0400 Body mass index (BMI) [Ratio] 25.4 kg/m2 Dr. Khanh Rodriguez MD Work Phone: [facility] 03-28-2025 12:14-0400 Body temperature 97.1 [degF] Dr. Khanh Rodriguez MD Work Phone: [facility] 03-28-2025 12:14-0400 Body weight 61.[address] Khanh Rodriguez MD Work Phone: [facility] 03-28-2025 12:14-0400 Diastolic blood pressure 60 mm[Hg] Dr. Khanh Rodriguez MD Work Phone: [facility] 03-28-2025 12:14-0400 Heart rate 62 /min Dr. Khanh Rodriguez MD Work Phone: [facility] 03-28-2025 12:14-0400 Respiratory rate 16 /min Dr. Khanh Rodriguez MD Work Phone: [facility] 03-28-2025 12:14-0400 SaO2% (BldA) [Mass fraction] 99 % Dr. Khanh Rodriguez MD Work Phone: [facility] 03-28-2025 12:14-0400 Systolic blood pressure 122 mm[Hg] Dr. Khanh Rodriguez MD Work Phone: [facility] 02-28-2025 12:14-0400 Body height 154.[address] Khanh Rodriguez MD Work Phone: [facility] 02-28-2025 12:14-0400 Body mass index (BMI) [Ratio] 25.4 kg/m2 Dr. Khanh Rodriguez MD Work Phone: [facility] 02-28-2025 12:14-0400 Body temperature 96.7 [degF] Dr. Khanh Rodriguez MD Work Phone: [facility] 02-28-2025 12:14-0400 Body weight 61.[address] Khanh Rodriguez MD Work Phone: [facility] 02-28-2025 12:14-0400 Diastolic blood pressure 48 mm[Hg] Dr. Khanh Rodriguez MD Work Phone: [facility] 02-28-2025 12:14-0400 Heart rate 66 /min Dr. Khanh Rodriguez MD Work Phone: [facility] 02-28-2025 12:14-0400 Respiratory rate 16 /min Dr. Khanh Rodriguez MD Work Phone: [facility] 02-28-2025 12:14-0400 SaO2% (BldA) [Mass fraction] 98 % Dr. Khanh Rodriguez MD Work Phone: [facility] 02-28-2025 12:14-0400 Systolic blood pressure 113 mm[Hg] Dr. Khanh Rodriguez MD Work Phone: [facility] 02-25-2025 14:33-0400 Body temperature 98.1 [degF] Nayan Blackmon MD Work Phone: [facility] 02-25-2025 14:33-0400 Diastolic blood pressure 63 mm[Hg] Nayan Blackmon MD Work Phone: [facility] 02-25-2025 14:33-0400 Heart rate 59 /min Nayan Blackmon MD Work Phone: [facility] 02-25-2025 14:33-0400 SaO2% (BldA) [Mass fraction] 99 % Nayan Blackmon MD Work Phone: [facility] 02-25-2025 14:33-0400 Systolic blood pressure 131 mm[Hg] Nayan Blackmon MD Work Phone: [facility] 02-18-2025 15:50-0400 Diastolic blood pressure 52 mm[Hg] [facility] Work Phone: [facility] 02-18-2025 15:50-0400 Heart rate 70 /min [facility] Work Phone: [facility] 02-18-2025 15:50-0400 Respiratory rate 18 /min [facility] Work Phone: [facility] 02-18-2025 15:50-0400 SaO2% (BldA) [Mass fraction] 98 % [facility] Work Phone: [facility] 02-18-2025 15:50-0400 Systolic blood pressure 118 mm[Hg] [facility] Work Phone: [facility] 02-18-2025 14:30-0400 Body temperature 96.6 [degF] [facility] Work Phone: [facility] 02-11-2025 15:31-0400 Body mass index (BMI) [Ratio] 29.94 kg/m2 Nayan Blackmon MD Work Phone: [facility] 02-11-2025 15:31-0400 Body temperature 97.7 [degF] Nayan Blackmon MD Work Phone: [facility] 02-11-2025 15:31-0400 Body weight 74.25 kg Nayan Blackmon MD Work Phone: [facility] 02-11-2025 15:31-0400 Diastolic blood pressure 66 mm[Hg] Nayan Blackmon MD Work Phone: [facility] 02-11-2025 15:31-0400 Heart rate 68 /min Nayan Blackmon MD Work Phone: [facility] 02-11-2025 15:31-0400 Respiratory rate 20 /min Nayan Blackmon MD Work Phone: [facility] 02-11-2025 15:31-0400 SaO2% (BldA) [Mass fraction] 98 % Nayan Blackmon MD Work Phone: [facility] 02-11-2025 15:31-0400 Systolic blood pressure 117 mm[Hg] Nayan Blackmon MD Work Phone: [facility] 01-31-2025 11:07-0400 Body height 154.[address] Khanh Rodriguez MD Work Phone: [facility] 01-31-2025 11:07-0400 Body mass index (BMI) [Ratio] 25.3 kg/m2 Dr. Khanh Rodriguez MD Work Phone: [facility] 01-31-2025 11:07-0400 Body temperature 96.9 [degF] Dr. Khanh Rodriguez MD Work Phone: [facility] 01-31-2025 11:07-0400 Body weight 60.[address] Khanh Rodriguez MD Work Phone: [facility] 01-31-2025 11:07-0400 Diastolic blood pressure 70 mm[Hg] Dr. Khanh Rodriguez MD Work Phone: [facility] 01-31-2025 11:07-0400 Heart rate 70 /min Dr. Khanh Rodriguez MD Work Phone: [facility] 01-31-2025 11:07-0400 Respiratory rate 16 /min Dr. Khanh Rodriguez MD Work Phone: [facility] 01-31-2025 11:07-0400 SaO2% (BldA) [Mass fraction] 100 % Dr. Khanh Rodriguez MD Work Phone: [facility] 01-31-2025 11:07-0400 Systolic blood pressure 123 mm[Hg] Dr. Khanh Rodriguez MD Work Phone: [facility] 01-23-2025 13:22-0400 Body temperature 98.2 [degF] Dr. Khanh Rodriguez MD Work Phone: [facility] 01-23-2025 13:22-0400 Diastolic blood pressure 66 mm[Hg] Dr. Khanh Rodriguez MD Work Phone: [facility] 01-23-2025 13:22-0400 Heart rate 66 /min Dr. Khanh Rodriguez MD Work Phone: [facility] 01-23-2025 13:22-0400 Respiratory rate 16 /min Dr. Khanh Rodriguez MD Work Phone: [facility] 01-23-2025 13:22-0400 SaO2% (BldA) [Mass fraction] 96 % Dr. Khanh Rodriguez MD Work Phone: [facility] 01-23-2025 13:22-0400 Systolic blood pressure 119 mm[Hg] Dr. Khanh Rodriguez MD Work Phone: [facility] 01-22-2025 11:52-0400 Body height 157.[address] Khanh Rodriguez MD Work Phone: [facility] 01-22-2025 11:52-0400 Body mass index (BMI) [Ratio] 26.3 kg/m2 Dr. Khanh Rodriguez MD Work Phone: [facility] 01-22-2025 11:52-0400 Body temperature 97.2 [degF] Dr. Khanh Rodriguez MD Work Phone: [facility] 01-22-2025 11:52-0400 Body weight 65.[address] Khanh Rodriguez MD Work Phone: [facility] 01-22-2025 11:52-0400 Diastolic blood pressure 60 mm[Hg] Dr. Khanh Rodriguez MD Work Phone: [facility] 01-22-2025 11:52-0400 Heart rate 64 /min Dr. Khanh Rodriguez MD Work Phone: [facility] 01-22-2025 11:52-0400 Respiratory rate 16 /min Dr. Khanh Rodriguez MD Work Phone: [facility] 01-22-2025 11:52-0400 SaO2% (BldA) [Mass fraction] 95 % Dr. Khanh Rodriguez MD Work Phone: [facility] 01-22-2025 11:52-0400 Systolic blood pressure 110 mm[Hg] Dr. Khanh Rodriguez MD Work Phone: [facility] 06-17-2024 14:11-0400 Body weight 65.[address] Khanh Rodriguez MD Work Phone: [facility] 06-12-2024 10:30-0400 Body height 157.5 cm Monse MARQUEZ-C Work Phone: [facility] 06-12-2024 10:30-0400 Body mass index (BMI) [Ratio] 27.82 kg/m2 Monse Merlos PA-C Work Phone: [facility] 06-12-2024 10:30-0400 Body weight 69 kg Monse Merlos PA-C Work Phone: [facility] 06-12-2024 10:30-0400 Diastolic blood pressure 63 mm[Hg] Monse MARQUEZ-C Work Phone: [facility] 06-12-2024 10:30-0400 Heart rate 52 /min Monse MARQUEZ-C Work Phone: [facility] 06-12-2024 10:30-0400 SaO2% (BldA) [Mass fraction] 99 % Monse MARQUEZ-C Work Phone: [facility] 06-12-2024 10:30-0400 Systolic blood pressure 126 mm[Hg] Monse Merlos PA-C Work Phone: [facility] 04-23-2024 10:38-0400 Diastolic blood pressure 68 mm[Hg] Gt Yin DO Work Phone: [facility] 04-23-2024 10:38-0400 Heart rate 59 /min Gt Yin DO Work Phone: [facility] 04-23-2024 10:38-0400 SaO2% (BldA) [Mass fraction] 100 % Gt Yin DO Work Phone: [facility] 04-23-2024 10:38-0400 Systolic blood pressure 126 mm[Hg] Gt Yin DO Work Phone: [facility] 04-02-2024 13:11-0400 Body height 157.5 cm Marisela Mccarty MD Work Phone: [facility] 04-02-2024 13:11-0400 Body mass index (BMI) [Ratio] 27.82 kg/m2 Marisela Mccarty MD Work Phone: [facility] 04-02-2024 13:11-0400 Body weight 69 kg Marisela Mccarty MD Work Phone: [facility] 02-27-2024 08:46-0400 Diastolic blood pressure 66 mm[Hg] Gt Yin DO Work Phone: [facility] 02-27-2024 08:46-0400 Heart rate 61 /min Gt Yin DO Work Phone: [facility] 02-27-2024 08:46-0400 SaO2% (BldA) [Mass fraction] 99 % Gt Yin DO Work Phone: [facility] 02-27-2024 08:46-0400 Systolic blood pressure 128 mm[Hg] Gt Yin DO Work Phone: [facility] 01-05-2024 10:10-0400 Body height 162.[address] Khanh Rodriguez Work Phone: [facility] 01-05-2024 10:10-0400 Body mass index (BMI) [Ratio] 26.1 kg/m2 Dr. Khanh Rodriguez Work Phone: [facility] 01-05-2024 10:10-0400 Body temperature 97.1 [degF] Dr. Khanh Rodriguez Work Phone: [facility] 01-05-2024 10:10-0400 Body weight 68.[address] Khanh Rodriguez Work Phone: [facility] 01-05-2024 10:10-0400 Diastolic blood pressure 68 mm[Hg] Dr. Khanh Rodriguez Work Phone: [facility] 01-05-2024 10:10-0400 Heart rate 80 /min Dr. Khanh Rodriguez Work Phone: [facility] 01-05-2024 10:10-0400 Respiratory rate 14 /min Dr. Khanh Rodriguez Work Phone: [facility] 01-05-2024 10:10-0400 SaO2% (BldA) [Mass fraction] 99 % Dr. Khanh Rodriguez Work Phone: [facility] 01-05-2024 10:10-0400 Systolic blood pressure 130 mm[Hg] Dr. Khanh Rodriguez Work Phone: [facility] 12-30-2023 13:48-0400 Body temperature 97.5 [degF] Dr. Khanh Rodriguez Work Phone: [facility] 12-30-2023 13:48-0400 Diastolic blood pressure 61 mm[Hg] Dr. Khanh Rodriguez Work Phone: [facility] 12-30-2023 13:48-0400 Heart rate 65 /min Dr. Khanh Rodriguez Work Phone: [facility] 12-30-2023 13:48-0400 Respiratory rate 18 /min Dr. Khanh Rodriguez Work Phone: [facility] 12-30-2023 13:48-0400 SaO2% (BldA) [Mass fraction] 99 % Dr. Khanh Rodriguez Work Phone: [facility] 12-30-2023 13:48-0400 Systolic blood pressure 111 mm[Hg] Dr. Khanh Rodriguez Work Phone: [facility] 12-30-2023 04:27-0400 Body mass index (BMI) [Ratio] 27.4 kg/m2 Dr. Khanh Rodriguez Work Phone: [facility] 12-30-2023 04:27-0400 Body weight 72.[address] Khanh Rodriguez Work Phone: [facility] 12-28-2023 14:16-0400 Body height 162.[address] Khanh Rodriguez Work Phone: [facility] 12-27-2023 13:32-0400 Body temperature 97.5 [degF] Dr. Khanh Rodriguez Work Phone: [facility] 12-27-2023 13:32-0400 Diastolic blood pressure 61 mm[Hg] Dr. Khanh Rodriguez Work Phone: [facility] 12-27-2023 13:32-0400 Heart rate 76 /min Dr. Khanh Rodriguez Work Phone: [facility] 12-27-2023 13:32-0400 Respiratory rate 16 /min Dr. Khanh Rodriguez Work Phone: [facility] 12-27-2023 13:32-0400 SaO2% (BldA) [Mass fraction] 96 % Dr. Khanh Rodriguez Work Phone: [facility] 12-27-2023 13:32-0400 Systolic blood pressure 121 mm[Hg] Dr. Khanh Rodriguez Work Phone: [facility] 12-27-2023 08:47-0400 Body height 159.[address] Khanh Rodriguez Work Phone: [facility] 11-29-2023 09:41-0400 Body temperature 97.4 [degF] Dr. Khanh Rodriguez Work Phone: [facility] 11-29-2023 09:41-0400 Diastolic blood pressure 65 mm[Hg] Dr. Khanh Rodriguez Work Phone: [facility] 11-29-2023 09:41-0400 Heart rate 72 /min Dr. Khanh Rodriguez Work Phone: [facility] 11-29-2023 09:41-0400 Respiratory rate 20 /min Dr. Khanh Rodriguez Work Phone: [facility] 11-29-2023 09:41-0400 Systolic blood pressure 133 mm[Hg] Dr. Khanh Rodriguez Work Phone: [facility] 11-15-2023 15:24-0400 Body height 160.[address] Khanh Rodriguez Work Phone: [facility] 11-15-2023 15:24-0400 Body mass index (BMI) [Ratio] 26.9 kg/m2 Dr. Khanh Rodriguez Work Phone: [facility] 11-15-2023 15:24-0400 Body temperature 98.2 [degF] Dr. Khanh Rodriguez Work Phone: [facility] 11-15-2023 15:24-0400 Body weight 68.[address] Khanh Rodriguez Work Phone: [facility] 11-15-2023 15:24-0400 Diastolic blood pressure 70 mm[Hg] Dr. Khanh Rodriguez Work Phone: [facility] 11-15-2023 15:24-0400 Heart rate 70 /min Dr. Khanh Rodriguez Work Phone: [facility] 11-15-2023 15:24-0400 Respiratory rate 16 /min Dr. Khanh Rodriguez Work Phone: [facility] 11-15-2023 15:24-0400 SaO2% (BldA) [Mass fraction] 99 % Dr. Khanh Rodriguez Work Phone: [facility] 11-15-2023 15:24-0400 Systolic blood pressure 116 mm[Hg] Dr. Khanh Rodriguez Work Phone: [facility] 11-15-2023 09:45-0400 Body temperature 96.1 [degF] Dr. Kahnh Rodriguez Work Phone: [facility] 11-15-2023 09:45-0400 Diastolic blood pressure 60 mm[Hg] Dr. Khanh Rodriguez Work Phone: [facility] 11-15-2023 09:45-0400 Heart rate 67 /min Dr. Khanh Rodriguez Work Phone: [facility] 11-15-2023 09:45-0400 Respiratory rate 20 /min Dr. Khanh Rodriguez Work Phone: [facility] 11-15-2023 09:45-0400 Systolic blood pressure 139 mm[Hg] Dr. Khanh Rodriguez Work Phone: [facility] 11-03-2023 10:57-0500 Body height 160.[address] Khanh Rodriguez Work Phone: [facility] 11-03-2023 10:57-0500 Body mass index (BMI) [Ratio] 25.8 kg/m2 Dr. Khanh Rodriguez Work Phone: [facility] 11-03-2023 10:57-0500 Body temperature 97.2 [degF] Dr. Khanh Rodriguez Work Phone: [facility] 11-03-2023 10:57-0500 Body weight 66.[address] Khanh Rodriguez Work Phone: [facility] 11-03-2023 10:57-0500 Diastolic blood pressure 62 mm[Hg] Dr. Khanh Rodriguez Work Phone: [facility] 11-03-2023 10:57-0500 Heart rate 100 /min Dr. Khanh Rodriguez Work Phone: [facility] 11-03-2023 10:57-0500 Respiratory rate 16 /min Dr. Khanh Rodriguez Work Phone: [facility] 11-03-2023 10:57-0500 SaO2% (BldA) [Mass fraction] 97 % Dr. Khanh Rodriguez Work Phone: [facility] 11-03-2023 10:57-0500 Systolic blood pressure 112 mm[Hg] Dr. Khanh Rodriguez Work Phone: [facility] 11-02-2023 11:38-0500 Body temperature 98 [degF] Dr. Khanh Rodriguez Work Phone: [facility] 11-02-2023 11:38-0500 Body weight 66.[address] Khanh Rodriguez Work Phone: [facility] 11-02-2023 11:38-0500 Diastolic blood pressure 66 mm[Hg] Dr. Khanh Rodriguez Work Phone: [facility] 11-02-2023 11:38-0500 Heart rate 73 /min Dr. Khanh Rodriguez Work Phone: [facility] 11-02-2023 11:38-0500 Respiratory rate 16 /min Dr. Khanh Rodriguez Work Phone: [facility] 11-02-2023 11:38-0500 SaO2% (BldA) [Mass fraction] 99 % Dr. Khanh Rodriguez Work Phone: [facility] 11-02-2023 11:38-0500 Systolic blood pressure 124 mm[Hg] Dr. Khanh Rodriguez Work Phone: [facility] 11-01-2023 08:51-0500 Body temperature 97.7 [degF] Dr. Khanh Rodriguez Work Phone: [facility] 11-01-2023 08:51-0500 Diastolic blood pressure 51 mm[Hg] Dr. Khanh Rodriguez Work Phone: [facility] 11-01-2023 08:51-0500 Heart rate 69 /min Dr. Khanh Rodriguez Work Phone: [facility] 11-01-2023 08:51-0500 Respiratory rate 16 /min Dr. Khanh Rodriguez Work Phone: [facility] 11-01-2023 08:51-0500 Systolic blood pressure 120 mm[Hg] Dr. Khanh Rodriguez Work Phone: [facility] 10-26-2023 11:20-0500 Body height 160.[address] Khanh Rodriguez Work Phone: [facility] 10-26-2023 11:20-0500 Body weight 67.[address] Khanh Rodriguez Work Phone: [facility] 10-25-2023 09:43-0500 Body temperature 96.6 [degF] Dr. Khanh Rodriguez Work Phone: [facility] 10-25-2023 09:43-0500 Diastolic blood pressure 53 mm[Hg] Dr. Khanh Rodriguez Work Phone: [facility] 10-25-2023 09:43-0500 Heart rate 63 /min Dr. Khanh Rodriguez Work Phone: [facility] 10-25-2023 09:43-0500 Respiratory rate 16 /min Dr. Khanh Rodriguez Work Phone: [facility] 10-25-2023 09:43-0500 Systolic blood pressure 117 mm[Hg] Dr. Khanh Rodriguez Work Phone: [facility] 10-18-2023 09:49-0500 Body temperature 97.9 [degF] Dr. Khanh Rodriguez Work Phone: [facility] 10-18-2023 09:49-0500 Diastolic blood pressure 62 mm[Hg] Dr. Khanh Rodriguez Work Phone: [facility] 10-18-2023 09:49-0500 Heart rate 74 /min Dr. Khanh Rodriguez Work Phone: [facility] 10-18-2023 09:49-0500 Respiratory rate 16 /min Dr. Khanh Rodriguez Work Phone: [facility] 10-18-2023 09:49-0500 Systolic blood pressure 124 mm[Hg] Dr. Khanh Rodriguez Work Phone: [facility] 10-04-2023 09:58-0500 Body temperature 97.1 [degF] Dr. Khanh Rodriguez Work Phone: [facility] 10-04-2023 09:58-0500 Diastolic blood pressure 50 mm[Hg] Dr. Khanh Rodriguez Work Phone: [facility] 10-04-2023 09:58-0500 Heart rate 62 /min Dr. Khanh Rodriguez Work Phone: [facility] 10-04-2023 09:58-0500 Respiratory rate 16 /min Dr. Khnah Rodriguez Work Phone: [facility] 10-04-2023 09:58-0500 Systolic blood pressure 112 mm[Hg] Dr. Khanh Rodriguez Work Phone: [facility] 09-21-2023 15:37-0500 Body temperature 97.1 [degF] Dr. Khanh Rodriguez Work Phone: [facility] 09-21-2023 15:37-0500 Diastolic blood pressure 68 mm[Hg] Dr. Khanh Rodriguez Work Phone: [facility] 09-21-2023 15:37-0500 Heart rate 72 /min Dr. Khanh Rodriguez Work Phone: [facility] 09-21-2023 15:37-0500 Respiratory rate 16 /min Dr. Khanh Rodriguez Work Phone: [facility] 09-21-2023 15:37-0500 SaO2% (BldA) [Mass fraction] 98 % Dr. Khanh Rodriguez Work Phone: [facility] 09-21-2023 15:37-0500 Systolic blood pressure 121 mm[Hg] Dr. Khanh Rodriguez Work Phone: [facility] 08-30-2023 08:36-0500 Body temperature 96.8 [degF] Dr. Khanh Rodriguez Work Phone: [facility] 08-30-2023 08:36-0500 Diastolic blood pressure 66 mm[Hg] Dr. Khanh Rodriguez Work Phone: [facility] 08-30-2023 08:36-0500 Heart rate 63 /min Dr. Khanh Rodriguez Work Phone: [facility] 08-30-2023 08:36-0500 Respiratory rate 16 /min Dr. Khanh Rodriguez Work Phone: [facility] 08-30-2023 08:36-0500 Systolic blood pressure 135 mm[Hg] Dr. Khanh Rodriguez Work Phone: [facility] 08-02-2023 10:39-0500 Body temperature 96.8 [degF] Dr. Khanh Rodriguez Work Phone: [facility] 08-02-2023 10:39-0500 Diastolic blood pressure 77 mm[Hg] Dr. Khanh Rodriguez Work Phone: [facility] 08-02-2023 10:39-0500 Heart rate 74 /min Dr. Khanh Rodriguez Work Phone: [facility] 08-02-2023 10:39-0500 Respiratory rate 18 /min Dr. Khanh Rodriguez Work Phone: [facility] 08-02-2023 10:39-0500 Systolic blood pressure 150 mm[Hg] Dr. Khanh Rodriguez Work Phone: [facility] 07-24-2023 15:19-0500 Body height 160.[address] Khanh Rodriguez Work Phone: [facility] 07-24-2023 15:19-0500 Body mass index (BMI) [Ratio] 26.4 kg/m2 Dr. Khanh Rodriguez Work Phone: [facility] 07-24-2023 15:19-0500 Body temperature 98 [degF] Dr. Khanh Rodriguez Work Phone: [facility] 07-24-2023 15:19-0500 Body weight 67.[address] Khanh Rodriguez Work Phone: [facility] 07-24-2023 15:19-0500 Diastolic blood pressure 67 mm[Hg] Dr. Khanh Rodriguez Work Phone: [facility] 07-24-2023 15:19-0500 Heart rate 66 /min Dr. Khanh Rodriguez Work Phone: [facility] 07-24-2023 15:19-0500 Respiratory rate 18 /min Dr. Khanh Rodriguez Work Phone: [facility] 07-24-2023 15:19-0500 SaO2% (BldA) [Mass fraction] 98 % Dr. Khanh Rodriguez Work Phone: [facility] 07-24-2023 15:19-0500 Systolic blood pressure 120 mm[Hg] Dr. Khanh Rodriguez Work Phone: [facility] 07-20-2023 09:17-0500 Body mass index (BMI) [Ratio] 25.9 kg/m2 Dr. Khanh Rodriguez Work Phone: [facility] 07-20-2023 09:17-0500 Body temperature 97.2 [degF] Dr. Khanh Rodriguez Work Phone: [facility] 07-20-2023 09:17-0500 Body weight 66.[address] Khanh Rodriguez Work Phone: [facility] 07-20-2023 09:17-0500 Diastolic blood pressure 78 mm[Hg] Dr. Khanh Rodriguez Work Phone: [facility] 07-20-2023 09:17-0500 Heart rate 67 /min Dr. Khanh Rodriguez Work Phone: [facility] 07-20-2023 09:17-0500 Respiratory rate 16 /min Dr. Khanh Rodriguez Work Phone: [facility] 07-20-2023 09:17-0500 SaO2% (BldA) [Mass fraction] 97 % Dr. Khanh Rodriguez Work Phone: [facility] 07-20-2023 09:17-0500 Systolic blood pressure 126 mm[Hg] Dr. Khanh Rodriguez Work Phone: [facility] 07-10-2023 13:14-0500 Body mass index (BMI) [Ratio] 25.5 kg/m2 Dr. Khanh Rodriguez Work Phone: [facility] 07-10-2023 13:14-0500 Body temperature 98.2 [degF] Dr. Khanh Rodriguez Work Phone: [facility] 07-10-2023 13:14-0500 Body weight 65.[address] Khanh Rodriguez Work Phone: [facility] 07-10-2023 13:14-0500 Diastolic blood pressure 74 mm[Hg] Dr. Khanh Rodriguez Work Phone: [facility] 07-10-2023 13:14-0500 Heart rate 69 /min Dr. Khanh Rodriguez Work Phone: [facility] 07-10-2023 13:14-0500 Respiratory rate 18 /min Dr. Khanh Rodriguez Work Phone: [facility] 07-10-2023 13:14-0500 SaO2% (BldA) [Mass fraction] 98 % Dr. Khanh Rodriguez Work Phone: [facility] 07-10-2023 13:14-0500 Systolic blood pressure 132 mm[Hg] Dr. Khanh Rodriguez Work Phone: [facility] 06-28-2023 09:53-0400 Body temperature 97.1 [degF] Dr. Khanh Rodriguez Work Phone: [facility] 06-28-2023 09:53-0400 Diastolic blood pressure 72 mm[Hg] Dr. Khanh Rodriguez Work Phone: [facility] 06-28-2023 09:53-0400 Heart rate 76 /min Dr. Khanh Rodriguez Work Phone: [facility] 06-28-2023 09:53-0400 Respiratory rate 18 /min Dr. Khanh Rodriguez Work Phone: [facility] 06-28-2023 09:53-0400 Systolic blood pressure 135 mm[Hg] Dr. Khanh Rodriguez Work Phone: [facility] 06-13-2023 13:31-0400 Body temperature 98 [degF] Dr. Khanh Rodriguez Work Phone: [facility] 06-13-2023 13:31-0400 Diastolic blood pressure 62 mm[Hg] Dr. Khanh Rodriguez Work Phone: [facility] 06-13-2023 13:31-0400 Heart rate 74 /min Dr. Khanh Rodriguez Work Phone: [facility] 06-13-2023 13:31-0400 Respiratory rate 18 /min Dr. Khanh Rodriguez Work Phone: [facility] 06-13-2023 13:31-0400 SaO2% (BldA) [Mass fraction] 100 % Dr. Khanh Rodriguez Work Phone: [facility] 06-13-2023 13:31-0400 Systolic blood pressure 124 mm[Hg] Dr. Khanh Rodriguez Work Phone: [facility] 06-12-2023 15:51-0400 Body height 160.[address] Khanh Rodriguez Work Phone: [facility] 06-12-2023 15:51-0400 Body weight 68.[address] Khanh Rodriguez Work Phone: [facility] 06-12-2023 14:18-0400 Body mass index (BMI) [Ratio] 26.5 kg/m2 Dr. Khanh Rodriguez Work Phone: [facility] 06-12-2023 14:18-0400 Inhaled oxygen flow rate 2 L/min Dr. Khanh Rodriguez Work Phone: [facility] 05-31-2023 10:01-0400 Body temperature 96.7 [degF] Dr. Khanh Rodriguez Work Phone: [facility] 05-31-2023 10:01-0400 Diastolic blood pressure 50 mm[Hg] Dr. Khanh Rodriguez Work Phone: [facility] 05-31-2023 10:01-0400 Heart rate 63 /min Dr. Khanh Rodriguez Work Phone: [facility] 05-31-2023 10:01-0400 Respiratory rate 18 /min Dr. Khanh Rodriguez Work Phone: [facility] 05-31-2023 10:01-0400 Systolic blood pressure 125 mm[Hg] Dr. Khanh Rodriguez Work Phone: [facility] 05-24-2023 13:52-0400 Body height 162.[address] Khanh Rodriguez Work Phone: [facility] 05-24-2023 13:52-0400 Body mass index (BMI) [Ratio] 25.4 kg/m2 Dr. Khanh Rodriguez Work Phone: [facility] 05-24-2023 13:52-0400 Body temperature 97.6 [degF] Dr. Khanh Rodriguez Work Phone: [facility] 05-24-2023 13:52-0400 Body weight 67.[address] Khanh Rodriguez Work Phone: [facility] 05-24-2023 13:52-0400 Diastolic blood pressure 74 mm[Hg] Dr. Khanh Rodriguez Work Phone: [facility] 05-24-2023 13:52-0400 Heart rate 61 /min Dr. Khanh Rodriguez Work Phone: [facility] 05-24-2023 13:52-0400 Respiratory rate 16 /min Dr. Khanh Rodriguez Work Phone: [facility] 05-24-2023 13:52-0400 SaO2% (BldA) [Mass fraction] 97 % Dr. Khanh Rodriguez Work Phone: [facility] 05-24-2023 13:52-0400 Systolic blood pressure 116 mm[Hg] Dr. Khanh Rodriguez Work Phone: [facility] 05-15-2023 15:56-0400 Body height 162.[address] Khanh Rodriguez Work Phone: [facility] 05-15-2023 15:56-0400 Body mass index (BMI) [Ratio] 24.5 kg/m2 Dr. Khanh Rodriguez Work Phone: [facility] 05-15-2023 15:56-0400 Body temperature 96.8 [degF] Dr. Khanh Rodriguez Work Phone: [facility] 05-15-2023 15:56-0400 Body weight 64.[address] Khanh Rodriguez Work Phone: [facility] 05-15-2023 15:56-0400 Diastolic blood pressure 71 mm[Hg] Dr. Khanh Rodriguez Work Phone: [facility] 05-15-2023 15:56-0400 Heart rate 69 /min Dr. Khanh Rodriguez Work Phone: [facility] 05-15-2023 15:56-0400 Respiratory rate 17 /min Dr. Khanh Rodriguez Work Phone: [facility] 05-15-2023 15:56-0400 SaO2% (BldA) [Mass fraction] 99 % Dr. Khanh Rodriguez Work Phone: [facility] 05-15-2023 15:56-0400 Systolic blood pressure 119 mm[Hg] Dr. Khanh Rodriguez Work Phone: [facility] 05-03-2023 10:00-0400 Body temperature 97.8 [degF] Dr. Khanh Rodriguez Work Phone: [facility] 05-03-2023 10:00-0400 Body weight 65.[address] Khanh Rodriguez Work Phone: [facility] 05-03-2023 10:00-0400 Diastolic blood pressure 74 mm[Hg] Dr. Khanh Rodriguez Work Phone: [facility] 05-03-2023 10:00-0400 Heart rate 71 /min Dr. Khanh Rodriguez Work Phone: [facility] 05-03-2023 10:00-0400 Respiratory rate 16 /min Dr. Khanh Rodriguez Work Phone: [facility] 05-03-2023 10:00-0400 SaO2% (BldA) [Mass fraction] 100 % Dr. Khanh Rodriguez Work Phone: [facility] 05-03-2023 10:00-0400 Systolic blood pressure 129 mm[Hg] Dr. Khanh Rodriguez Work Phone: [facility] 04-26-2023 10:35-0400 Body height 162.[address] Khanh Rodriguez Work Phone: [facility] 04-26-2023 10:35-0400 Body mass index (BMI) [Ratio] 24.7 kg/m2 Dr. Khanh Rodriguez Work Phone: [facility] 04-26-2023 10:35-0400 Body temperature 95.9 [degF] Dr. Khanh Rodriguez Work Phone: [facility] 04-26-2023 10:35-0400 Body weight 65.[address] Khanh Rodriguez Work Phone: [facility] 04-26-2023 10:35-0400 Diastolic blood pressure 72 mm[Hg] Dr. Khanh Rodriguez Work Phone: [facility] 04-26-2023 10:35-0400 Heart rate 70 /min Dr. Khanh Rodriguez Work Phone: [facility] 04-26-2023 10:35-0400 Respiratory rate 18 /min Dr. Khanh Rodriguez Work Phone: [facility] 04-26-2023 10:35-0400 SaO2% (BldA) [Mass fraction] 99 % Dr. Khanh Rodriguez Work Phone: [facility] 04-26-2023 10:35-0400 Systolic blood pressure 138 mm[Hg] Dr. Khanh Rodriguez Work Phone: [facility] 04-19-2023 10:55-0400 Body mass index (BMI) [Ratio] 23.5 kg/m2 Dr. Khanh Rodriguez Work Phone: [facility] 04-19-2023 10:55-0400 Body temperature 96.9 [degF] Dr. Khanh Rodriguez Work Phone: [facility] 04-19-2023 10:55-0400 Diastolic blood pressure 65 mm[Hg] Dr. Khanh Rodriguez Work Phone: [facility] 04-19-2023 10:55-0400 Heart rate 63 /min Dr. Khanh Rodriguez Work Phone: [facility] 04-19-2023 10:55-0400 Respiratory rate 16 /min Dr. Khanh Rodriguez Work Phone: [facility] 04-19-2023 10:55-0400 Systolic blood pressure 120 mm[Hg] Dr. Khanh Rodriguez Work Phone: [facility] 04-04-2023 00:38-0400 Body weight 62.[address] Khanh Rodriguez Work Phone: [facility] 03-29-2023 11:11-0400 Body mass index (BMI) [Ratio] 23.5 kg/m2 Dr. Khanh Rodriguez Work Phone: [facility] 03-29-2023 11:11-0400 Body temperature 97 [degF] Dr. Khanh Rodriguez Work Phone: [facility] 03-29-2023 11:11-0400 Diastolic blood pressure 50 mm[Hg] Dr. Khanh Rodriguez Work Phone: [facility] 03-29-2023 11:11-0400 Heart rate 61 /min Dr. Khanh Rodriguez Work Phone: [facility] 03-29-2023 11:11-0400 Respiratory rate 18 /min Dr. Khanh Rodriguez Work Phone: [facility] 03-29-2023 11:11-0400 Systolic blood pressure 107 mm[Hg] Dr. Khanh Rodriguez Work Phone: [facility] 03-04-2023 01:35-0400 Body weight 62.[address] Khanh Rodriguez Work Phone: [facility] 03-01-2023 09:39-0400 Body mass index (BMI) [Ratio] 23.5 kg/m2 Dr. Khanh Rodriguez Work Phone: [facility] 03-01-2023 09:39-0400 Body temperature 97 [degF] Dr. Khanh Rodriguez Work Phone: [facility] 03-01-2023 09:39-0400 Diastolic blood pressure 65 mm[Hg] Dr. Khanh Rodriguez Work Phone: [facility] 03-01-2023 09:39-0400 Heart rate 65 /min Dr. Khanh Rodriguez Work Phone: [facility] 03-01-2023 09:39-0400 Respiratory rate 16 /min Dr. Khanh Rodriguez Work Phone: [facility] 03-01-2023 09:39-0400 Systolic blood pressure 109 mm[Hg] Dr. Khanh Rodriguez Work Phone: [facility] 02-02-2023 00:49-0400 Body weight 62.[address] Khanh Rodriguez Work Phone: [facility] 02-01-2023 11:13-0400 Body mass index (BMI) [Ratio] 23.5 kg/m2 Dr. Khanh Rodriguez Work Phone: [facility] 02-01-2023 11:13-0400 Body temperature 97.2 [degF] Dr. Khanh Rodriguez Work Phone: [facility] 02-01-2023 11:13-0400 Diastolic blood pressure 54 mm[Hg] Dr. Khanh Rodriguez Work Phone: [facility] 02-01-2023 11:13-0400 Heart rate 66 /min Dr. Khanh Rodriguez Work Phone: [facility] 02-01-2023 11:13-0400 Respiratory rate 16 /min Dr. Khanh Rodriguez Work Phone: [facility] 02-01-2023 11:13-0400 Systolic blood pressure 105 mm[Hg] Dr. Khanh Rodriguez Work Phone: [facility] 01-25-2023 09:15-0400 Body height 162.[address] Khanh Rodriguez Work Phone: [facility] 01-25-2023 09:15-0400 Body weight 62.[address] Khanh Rodriguez Work Phone: [facility] 01-20-2023 09:47-0400 Body mass index (BMI) [Ratio] 24.5 kg/m2 Dr. Khanh Rodriguez Work Phone: [facility] 01-20-2023 09:47-0400 Body temperature 97.3 [degF] Dr. Khanh Rodriguez Work Phone: [facility] 01-20-2023 09:47-0400 Body weight 64.[address] Khanh Rodriguez Work Phone: [facility] 01-20-2023 09:47-0400 Diastolic blood pressure 64 mm[Hg] Dr. Khanh Rodriguez Work Phone: [facility] 01-20-2023 09:47-0400 Heart rate 70 /min Dr. Khanh Rodriguez Work Phone: [facility] 01-20-2023 09:47-0400 Respiratory rate 18 /min Dr. Khanh Rodriguez Work Phone: [facility] 01-20-2023 09:47-0400 SaO2% (BldA) [Mass fraction] 98 % Dr. Khanh Rodriguez Work Phone: [facility] 01-20-2023 09:47-0400 Systolic blood pressure 114 mm[Hg] Dr. Khanh Rodriguez Work Phone: [facility] 05-31-2022 09:07-0400 Body height 162.56 cm No Primary Care Physician [facility] Work Phone: 05-31-2022 09:07-0400 Body mass index (BMI) [Ratio] 24.4 kg/m2 No Primary Care Physician [facility] Work Phone: 05-31-2022 09:07-0400 Body temperature 96.8 [degF] No Primary Care Physician [facility] Work Phone: 05-31-2022 09:07-0400 Body weight 64.52 kg No Primary Care Physician [facility] Work Phone: 05-31-2022 09:07-0400 Diastolic blood pressure 70 mm[Hg] No Primary Care Physician [facility] Work Phone: 05-31-2022 09:07-0400 Heart rate 71 /min No Primary Care Physician [facility] Work Phone: 05-31-2022 09:07-0400 Respiratory rate 18 /min No Primary Care Physician [facility] Work Phone: 05-31-2022 09:07-0400 SaO2% (BldA) [Mass fraction] 99 % No Primary Care Physician [facility] Work Phone: 05-31-2022 09:07-0400 Systolic blood pressure 130 mm[Hg] No Primary Care Physician [facility] Work Phone: 03-25-2022 09:16-0400 Body height 162.56 cm No Primary Care Physician [facility] Work Phone: 03-25-2022 09:16-0400 Body mass index (BMI) [Ratio] 23.1 kg/m2 No Primary Care Physician [facility] Work Phone: 03-25-2022 09:16-0400 Body temperature 97.2 [degF] No Primary Care Physician [facility] Work Phone: 03-25-2022 09:16-0400 Body weight 61.23 kg No Primary Care Physician [facility] Work Phone: 03-25-2022 09:16-0400 Diastolic blood pressure 70 mm[Hg] No Primary Care Physician [facility] Work Phone: 03-25-2022 09:16-0400 Heart rate 80 /min No Primary Care Physician [facility] Work Phone: 03-25-2022 09:16-0400 Respiratory rate 14 /min No Primary Care Physician [facility] Work Phone: 03-25-2022 09:16-0400 SaO2% (BldA) [Mass fraction] 97 % No Primary Care Physician [facility] Work Phone: 03-25-2022 09:16-0400 Systolic blood pressure 100 mm[Hg] No Primary Care Physician [facility] Work Phone: Encounters Encounter Date Encounter Type Care Provider Facility Start: 05-28-2025 End: 06-03-2025 Evaluation and management of inpatient EFLOKESHBE B REYNALDOYAMILEXE Facility:[facility] Start: 05-27-2025 End: 05-28-2025 ambulatory AMANDA SOTO Facility:[facility] Start: 05-27-2025 End: 05-27-2025 ambulatory NAYAN LORRI Facility:[facility] Start: 05-26-2025 ambulatory Efewongbe Oleghe Facili ty:[facility] Start: 05-21-2025 ambulatory Efewongbe Oleghe Facili ty:[facility] Start: 05-21-2025 End: 05-21-2025 Patient encounter procedure Solo MARQUEZ -[facility] Work Phone: Start: 05-21-2025 End: 05-21-[address] Khanh Rodriguez MD Work Phone: -[facility] Start: 05-20-2025 End: 05-20-2025 ambulatory Amanda Soto PT Work Phone: [facility] Start: 05-20-2025 End: 05-20-2025 Patient encounter procedure Aamnda Soto PT Work Phone: [facility] Comment on above: Venous stasis ulcer of calf with fat layer exposed, unspecified laterality, unspecified whether varicose veins present (HCC) (Primary Dx); Venous ulcer (HCC) Start: 05-13-2025 End: 05-13-[address] Khanh Rodriguez MD Work Phone: -[facility] Start: 05-13-2025 End: 05-13-2025 Patient encounter procedure Tracy MARQUEZ -[facility] Work Phone: Start: 05-13-2025 End: 05-13-2025 ambulatory Amanda Soto PT Work Phone: [facility] Start: 05-13-2025 End: 05-13-2025 Patient encounter procedure Aamnda Soto PT Work Phone: [facility] Comment on above: Venous ulcer (HCC) ( Primary Dx) Start: 05-13-2025 End: 05-13-2025 ambulatory Tracy Lopez Facility:[facility] Start: 05-10-2025 End: 05-10-2025 Transcribe Orders Tracy MARQUEZ Work Phone: Referring Physician Comment on above: Spinal stenosis of l umbar region with neurogenic claudication (Primary Dx); Low back pain, unspecified back pain laterality, unspecified chronicity, unspecified whether sciatica present Start: 05-08-2025 End: 05-08-[address] Jacob Amor MD -[facility] Start: 05-08-2025 End: 05-08-[address] Khanh Rodriguez MD Work Phone: -[facility] Start: 05-06-2025 End: 05-06-2025 ambulatory Amanda Soto PT Work Phone: [facility] Start: 05-06-2025 End: 05-06-2025 Patient encounter procedure Amanda Soto PT Work Phone: [facility] Comment on above: Venous ulcer (HCC) ( Primary Dx) Start: 04-29-2025 End: 04-29-2025 Patient encounter procedure Liseth CHILDERSC -[facility] Work Phone: Start: 04-29-2025 End: 04-29-[address] Khanh Rodriguez MD Work Phone: -[facility] Start: 04-28-2025 End: 04-28-2025 ambulatory Amanda Soto PT Work Phone: [facility] Start: 04-28-2025 End: 04-28-2025 Patient encounter procedure Amanda Soto PT Work Phone: [facility] Comment on above: Venous ulcer (HCC) ( Primary Dx) Start: 04-25-2025 End: 04-25-[address] Khanh Rodriguez MD [facility] Work Phone: Start: 04-25-2025 End: 04-25-[address] Khanh Rodriguez MD Work Phone: [facility] Start: 04-22-2025 End: 04-23-2025 ambulatory Amanda Soto PT Work Phone: [facility] Start: 04-22-2025 End: 04-22-2025 Patient encounter procedure Amanda Soto PT Work Phone: [facility] Comment on above: Venous ulcer (HCC) ( Primary Dx) Start: 04-15-2025 End: 04-16-2025 ambulatory Amanda Soto PT Work Phone: [facility] Start: 04-15-2025 End: 04-16-2025 Patient encounter procedure Amanda Stoddarda PT Work Phone: [facility] Comment on above: Venous ulcer (HCC) ( Primary Dx) Start: 04-08-2025 End: 04-08-2025 ambulatory AMANDA SOTO Facility:[facility] Start: 04-01-2025 End: 04-01-2025 ambulatory Amanda Soto PT Work Phone: [facility] Start: 04-01-2025 End: 04-01-2025 Patient encounter procedure Amanda Soto PT Work Phone: [facility] Comment on above: Venous ulcer (HCC) ( Primary Dx) Start: 03-28-2025 End: 03-28-[address] Khanh Rodriguez MD [facility] Work Phone: Start: 03-28-2025 End: 03-28-[address] Khanh Rodriguez MD Work Phone: [facility] Start: 03-25-2025 End: 03-26-2025 ambulatory Amanda Soto PT Work Phone: [facility] Start: 03-25-2025 End: 03-26-2025 Patient encounter procedure Amanda Soto PT Work Phone: [facility] Comment on above: Venous ulcer (HCC) ( Primary Dx) Start: 03-19-2025 End: 03-19-2025 Patient encounter procedure Amanda Soto PT Work Phone: [facility] Comment on above: Venous ulcer (HCC) ( Primary Dx) Start: 03-19-2025 End: 03-19-2025 ambulatory Amanda Soto PT Work Phone: [facility] Start: 03-11-2025 End: 03-11-2025 ambulatory Amanda Soto PT Work Phone: [facility] Start: 03-11-2025 End: 03-11-2025 Patient encounter procedure Amanda Soto PT Work Phone: [facility] Comment on above: Venous ulcer (HCC) ( Primary Dx) Start: 03-04-2025 ambulatory Khanh [facility] Start: 03-03-2025 End: 03-03-2025 ambulatory Amanda Soto PT Work Phone: [facility] Start: 03-03-2025 End: 03-03-2025 Patient encounter procedure Amanda Soto PT Work Phone: [facility] Comment on above: Venous ulcer (HCC) ( Primary Dx) Start: 02-28-2025 End: 02-28-[address] Khanh Rodriguez MD [facility] Work Phone: Start: 02-28-2025 End: 02-28-[address] Khanh Rodriguez MD Work Phone: -Medical Out Start: 02-25-2025 End: 02-25-2025 ambulatory NAYAN BLACKMON [facility] Start: 02-25-2025 End: 02-25-2025 Patient encounter procedure Nayan Blackmon MD Work Phone: Plastic Surgery Comment on above: Pseudomonas aerugino sa infection (Primary Dx); Venous ulcer (HCC); Alcoholic cirrhosis of liver with ascites (HCC); Anxiety; Umbilical hernia without obstruction or gangrene Start: 02-24-2025 End: 02-24-2025 Patient encounter procedure Amanda Soto PT Work Phone: [facility] Outpatient Physical Therapy Comment on above: Venous ulcer (HCC) ( Primary Dx) Start: 02-24-2025 End: 02-24-2025 ambulatory Amanda Stoddarda PT Work Phone: [facility] Outpatient Physical Therapy Start: 02-24-2025 End: 02-24-[address] Nayan Blackmon MD -Home Health Lab Start: 02-24-[address] Nayan Blackmon MD -Home Health Lab Start: 02-24-2025 End: 02-24-[address] Khanh Rodriguez MD Work Phone: -Home Health Lab Start: 02-18-2025 End: 02-18-2025 Subsequent hospital visit by physician Chair [facility] Work Phone: Infusion Center Start: 02-18-2025 End: 02-18-2025 ambulatory KHANH RODRIGUEZ Facility:[facility] Start: 02-17-2025 End: 02-18-2025 Patient encounter procedure Amanda Soto PT Work Phone: [facility] Outpatient Physical Therapy Comment on above: Venous ulcer (HCC) ( Primary Dx) Start: 02-17-2025 End: 02-18-2025 ambulatory Amanda Soto PT Work Phone: [facility] Outpatient Physical Therapy Start: 02-17-2025 End: 02-17-2025 Telephone encounter Nayan Blackmon MD Work Phone: Plastic Surgery Comment on above: Patient Question Start: 02-11-2025 End: 02-11-2025 ambulatory NAYAN BLACKMON Facility:[facility] Start: 02-11-2025 End: 02-11-2025 Patient encounter procedure Nayan Blackmon MD Work Phone: Plastic Surgery Comment on above: Pseudomonas aerugino sa infection (Primary Dx); Venous ulcer (HCC); Alcoholic cirrhosis of liver with ascites (HCC); Anxiety Start: 02-11-2025 End: 02-25-2025 Telephone encounter Nayan Blackmon MD Work Phone: [facility] Comment on above: [employer] (FO R IDC USE ONLY) Start: 02-10-2025 End: 02-10-2025 Patient encounter procedure Amanda Soto PT Work Phone: [facility] Out[facility] Physical Therapy Comment on above: Venous ulcer (HCC) ( Primary Dx) Start: 02-10-2025 End: 02-10-2025 ambulatory Amanda Soto PT Work Phone: [facility] Out[facility] Physical Therapy Start: 02-03-2025 End: 02-03-2025 Patient encounter procedure Amanda Soto PT Work Phone: [facility] Therapy Comment on above: Venous ulcer (HCC) ( Primary Dx) Start: 02-03-2025 End: 02-03-2025 ambulatory Amanda Soto PT Work Phone: [facility] Out[facility] Physical Therapy Start: 01-31-2025 End: 01-31-[address] Khanh Rodriguez MD -Medical Out Work Phone: Start: 01-31-2025 End: 01-31-[address] Khanh Rodriguez MD Work Phone: [facility] Work Phone: Start: 01-28-2025 End: 01-29-2025 ambulatory Amanda Soto PT Work Phone: [facility] Out[facility] Physical Therapy Start: 01-28-2025 End: 01-28-2025 Patient encounter procedure Amanda Soto PT Work Phone: [facility] Out[facility] Physical Therapy Comment on above: Venous ulcer of righ t lower extremity with varicose veins (HCC) (Primary Dx); Venous ulcer (HCC) Start: 01-23-2025 End: 01-23-[address] Nabeel Patel MD -[facility] Work Phone: Start: 01-23-2025 End: 01-23-2025 ambulatory Khanh Rodriguez Facility:[facility] Start: 01-23-[address] Fidel Patel MD -[facility] Start: 01-22-2025 End: 01-22-2025 Patient encounter procedure Solo MARQUEZ -[facility] Work Phone: Start: 01-22-2025 End: 01-22-[address] Khanh Rodriguez MD Work Phone: [facility] Work Phone: Start: 01-20-2025 End: 01-20-2025 ambulatory AMANDA SOTO Facility:[facility] Start: 01-13-2025 End: 01-13-2025 ambulatory Amanda Soto PT Work Phone: [facility] Out[facility] Physical Therapy Start: 01-13-2025 End: 01-13-2025 Patient encounter procedure Amanda Stoddarda PT Work Phone: [facility] Out[facility] Therapy Comment on above: Venous ulcer (HCC) ( Primary Dx) Start: 01-06-2025 End: 01-08-2025 Orders Only Gt Hughes Yin DO Work Phone: Vascular Surgery Comment on above: Venous ulcer (HCC) ( Primary Dx); Venous (peripheral) insufficiency; Secondary lymphedema Venous ulcer (HCC) ( Primary Dx) Start: 07-15-2024 ambulatory Efewongbe Oleghe Facili :[facility] Start: 06-26-2024 End: 06-27-2024 ambulatory Amanda Soto PT Work Phone: [facility] Start: 06-26-2024 End: 06-27-2024 Patient encounter procedure Amanda Stoddarda PT Work Phone: [facility] Therapy Comment on above: Venous ulcer (HCC) ( Primary Dx); Venous (peripheral) insufficiency; Secondary lymphedema Start: 06-20-2024 Encounter for other preprocedural examination Yamile Glez [facility] Start: 06-18-2024 End: 06-18-2024 ambulatory Amanda Stoddarda PT Work Phone: [facility] Start: 06-18-2024 End: 06-18-2024 Patient encounter procedure Amanda Soto PT Work Phone: [facility] Comment on above: Venous ulcer (HCC) ( Primary Dx); Venous (peripheral) insufficiency; Secondary lymphedema Start: 06-17-2024 End: 06-17-2024 ambulatory Efewongbe Oleyamilexe Facility:[facility] Start: 06-14-2024 End: 06-14-2024 ambulatory [facility] Start: 06-12-2024 End: 06-12-2024 ambulatory Amanda Soto PT Work Phone: [facility] Start: 06-12-2024 End: 06-12-2024 Patient encounter procedure Amanda Stoddarda PT Work Phone: [facility] Comment on above: Venous ulcer (HCC) ( Primary Dx); Venous (peripheral) insufficiency; Secondary lymphedema Start: 06-12-2024 End: 06-12-2024 Patient encounter procedure Monse Merlos PA-C Work Phone: [facility] Comment on above: Degenerative scolios is (Primary Dx) Start: 06-12-2024 End: 06-12-2024 ambulatory KHANH RODRIGUEZ Facility:[facility] Start: 06-04-2024 End: 06-04-2024 ambulatory Amanda Stoddarda PT Work Phone: [facility] Therapy Start: 06-04-2024 End: 06-04-2024 Patient encounter procedure Amanda Soto PT Work Phone: [facility] Comment on above: Venous ulcer (HCC) ( Primary Dx); Venous (peripheral) insufficiency; Secondary lymphedema Start: 05-31-2024 ambulatory [facility] Facility :[facility] Start: 05-31-2024 End: 05-31-[facility] Start: 05-28-2024 End: 05-28-2024 ambulatory Amanda Stoddarda PT Work Phone: [facility] Start: 05-28-2024 End: 05-28-2024 Patient encounter procedure Amanda Stoddarda PT Work Phone: [facility] Therapy Comment on above: Venous ulcer (HCC) ( Primary Dx); Venous (peripheral) insufficiency; Secondary lymphedema Start: 05-21-2024 End: 05-21-2024 ambulatory Amanda Soto PT Work Phone: [facility] Start: 05-21-2024 End: 05-21-2024 Patient encounter procedure Amanda Soto PT Work Phone: [facility] Therapy Comment on above: Venous ulcer (HCC) ( Primary Dx); Venous (peripheral) insufficiency; Secondary lymphedema Start: 05-15-2024 End: 05-15-2024 Rosales Dickerson Work Phone: No Location Start: 05-15-2024 ambulatory Rosales Dick[facility] Start: 05-14-2024 End: 05-14-2024 Rosales Dickerson Work Phone: No Location Start: 05-14-2024 ambulatory Rosales Dickerson [facility] Start: 05-14-2024 End: 05-14-2024 ambulatory Amanda Soto PT Work Phone: [facility] Start: 05-14-2024 End: 05-14-2024 Patient encounter procedure Amanda Soto PT Work Phone: [facility] Therapy Comment on above: Venous ulcer (HCC) ( Primary Dx); Venous (peripheral) insufficiency; Secondary lymphedema Start: 05-10-2024 End: 05-11-2024 ambulatory Amanda Soto PT Work Phone: [facility] Start: 05-10-2024 End: 05-11-2024 Patient encounter procedure Amanda Soto PT Work Phone: [facility] Comment on above: Venous ulcer (HCC) ( Primary Dx); Venous (peripheral) insufficiency; Secondary lymphedema Start: 05-08-2024 End: 05-09-2024 Telephone encounter Amanda Soto PT Work Phone: [facility] Comment on above: Appointment Start: 04-30-2024 End: 04-30-2024 ambulatory Amanda Soto PT Work Phone: [facility] Start: 04-30-2024 End: 04-30-2024 Patient encounter procedure Amanda Soto PT Work Phone: [facility] Comment on above: Venous ulcer (HCC) ( Primary Dx); Venous (peripheral) insufficiency; Secondary lymphedema Start: 04-30-2024 End: 04-30-2024 [facility] Comment on above: Other malaise (Prima ry Dx) Start: 04-24-2024 End: 04-24-2024 ambulatory Amanda Soto PT Work Phone: [facility] Start: 04-24-2024 End: 04-24-2024 Patient encounter procedure Amanda Soto PT Work Phone: [facility] Comment on above: Venous ulcer (HCC) ( Primary Dx); Venous (peripheral) insufficiency; Secondary lymphedema Start: 04-23-2024 End: 04-23-2024 ambulatory Liseth O'Carlos PT [facility] Physical Therapy Comment on above: Other malaise (Prima ry Dx) Start: 04-23-2024 End: 04-23-2024 ambulatory KHANH RODRIGUEZ Facility:[facility] Start: 04-23-2024 End: 04-23-2024 Patient encounter procedure Gt Yin DO Work Phone: Vascular Surgery Comment on above: Venous ulcer (HCC) ( Primary Dx); Venous (peripheral) insufficiency Start: 04-16-2024 End: 04-16-2024 ambulatory Amanda Soto PT Work Phone: [facility] Start: 04-16-2024 End: 04-16-2024 Patient encounter procedure Amanda Soto PT Work Phone: [facility] Comment on above: Venous ulcer (HCC) ( Primary Dx); Venous (peripheral) insufficiency; Secondary lymphedema Start: 04-16-2024 End: 04-16-2024 ambulatory Liseth O'Carlos PT [facility] Physical Therapy Comment on above: Other malaise (Prima ry Dx) Start: 04-10-2024 End: 04-10-2024 ambulatory Amanda Soto PT Work Phone: [facility] Start: 04-10-2024 End: 04-10-2024 Patient encounter procedure Amanda Soto PT Work Phone: [facility] Comment on above: Venous ulcer (HCC) ( Primary Dx); Venous (peripheral) insufficiency; Secondary lymphedema Start: 04-04-2024 End: 04-04-2024 ambulatory Amanda Soto PT Work Phone: [facility] Start: 04-04-2024 End: 04-04-2024 Patient encounter procedure Amanda Stoddarda PT Work Phone: [facility] Comment on above: Venous ulcer (HCC) ( Primary Dx); Venous (peripheral) insufficiency; Secondary lymphedema Start: 04-03-2024 End: 04-03-2024 ambulatory KHANH RODRIGUEZ Facility:[facility] Start: 04-03-2024 End: 04-03-2024 Patient encounter procedure [facility] Work Phone: Vasculary Surgery Comment on above: Venous (peripheral) insufficiency; Symptomatic varicose veins of both lower extremities Start: 04-02-2024 End: 04-02-2024 ambulatory KHANH RODRIGUEZ Facility:[facility] Start: 04-02-2024 End: 04-02-2024 Patient encounter procedure Marisela Mccarty MD Work Phone: Orthopaedics Comment on above: S/P hip hemiarthropl asty (Primary Dx); Degenerative scoliosis Start: 04-02-2024 End: 04-02-2024 Subsequent hospital visit by physician [employer] [facility] Work Phone: Radiology Comment on above: Pain in left hip [M2 5.552] Start: 04-01-2024 End: 04-01-2024 ambulatory Liseth O'Carlos PT [facility] Physical Therapy Comment on above: Other malaise (Prima ry Dx) Start: 03-26-2024 End: 03-26-2024 ambulatory Amanda Soto PT Work Phone: [facility] Start: 03-26-2024 End: 03-26-2024 Patient encounter procedure Amanda Soto PT Work Phone: [facility] Therapy Comment on above: Venous ulcer (HCC) ( Primary Dx); Venous (peripheral) insufficiency; Secondary lymphedema Start: 03-26-2024 End: 03-26-2024 ambulatory Liseth O'Carlos PT [facility] Physical Therapy Comment on above: Other malaise (Prima ry Dx) Start: 03-20-2024 End: 03-20-2024 ambulatory Liseth O'Carlos PT [facility] Physical Therapy Comment on above: Other malaise (Prima ry Dx) Start: 03-19-2024 End: 03-19-2024 ambulatory Amanda Soto PT Work Phone: [facility] Start: 03-19-2024 End: 03-19-2024 Patient encounter procedure Amanda Soto PT Work Phone: [facility] Physical Therapy Comment on above: Venous ulcer (HCC) ( Primary Dx); Venous (peripheral) insufficiency; Secondary lymphedema Start: 03-13-2024 End: 03-14-2024 ambulatory Liseth O'Carlos PT [facility] Physical Therapy Comment on above: Other malaise (Prima ry Dx) Start: 03-12-2024 End: 03-12-2024 ambulatory Amanda Soto PT Work Phone: [facility] Start: 03-12-2024 End: 03-12-2024 Patient encounter procedure Amanda Soto PT Work Phone: [facility] Therapy Comment on above: Venous ulcer (HCC) ( Primary Dx); Venous (peripheral) insufficiency; Secondary lymphedema Start: 02-29-2024 End: 02-29-2024 ambulatory Amanda Soto PT Work Phone: [facility] Start: 02-29-2024 End: 02-29-2024 Patient encounter procedure Amanda Soto PT Work Phone: [facility] Physical Therapy Comment on above: Venous ulcer (HCC); Venous (peripheral) insufficiency; Secondary lymphedema Start: 02-27-2024 End: 02-27-2024 ambulatory KHANH RODRIGUEZ Facility:[facility] Start: 02-27-2024 End: 02-27-2024 Patient encounter procedure Gt Yin DO Work Phone: Vascular Surgery Comment on above: Venous ulcer (HCC) ( Primary Dx); Venous (peripheral) insufficiency; Secondary lymphedema; Symptomatic varicose veins of both lower extremities Start: 02-20-2024 End: 02-20-2024 ambulatory Liseth O'Carlos PT [facility] Physical Therapy Comment on above: Other malaise (Prima ry Dx) Start: 02-13-2024 End: 02-13-2024 ambulatory Liseth O'Carlos PT [facility] Physical Therapy Comment on above: Other malaise (Prima ry Dx) Start: 02-06-2024 End: 02-06-2024 ambulatory Liseth O'Carlos PT [facility] Physical Therapy Comment on above: Other malaise (Prima ry Dx) Start: 01-30-2024 End: 01-30-2024 ambulatory Liseth O'Carlos PT [facility] Physical Therapy Comment on above: Other malaise (Prima ry Dx) Start: 01-24-2024 End: 01-24-2024 ambulatory Liseth O'Carlos PT [facility] Physical Therapy Comment on above: Other malaise (Prima ry Dx) Start: 01-05-2024 End: 01-05-[address] Khanh Rodriguez Work Phone: [facility] Work Phone: Start: 01-05-2024 End: 01-05-[address] Khanh Rodriguez Work Phone: [facility] [place] Start: 01-05-2024 End: 01-05-[address] Khanh Rodriguez Work Phone: [facility] Work Phone: Start: 12-30-2023 End: 12-30-2023 Rosales Dickerson Work Phone: No Location Start: 12-30-2023 ambulatory Rosales Dickerson [facility] Start: 12-30-2023 Non-patient / Non-visit Dr. Sukhdev Rodriguez Work Phone: [facility] Work Phone: Start: 12-29-2023 Non-patient / Non-visit Dr. Sukhdev Rodriguez Work Phone: [facility] Start: 12-29-2023 Non-patient / Non-visit Dr. Sukhdev Rodriguez Work Phone: [facility] Work Phone: Start: 12-28-2023 Non-patient / Non-visit Dr. Sukhdev Rodriguez Work Phone: [facility] Start: 12-28-2023 Non-patient / Non-visit Dr. Sukhdev Rodriguez Work Phone: [facility] Work Phone: Start: 12-27-2023 End: 12-27-2023 [facility] Work Phone: No Location Start: 12-27-2023 Non-patient / Non-visit Dr. Sukhdev Rodriguez Work Phone: [facility] Work Phone: Start: 12-27-2023 ambulatory [facility] Start: 12-27-2023 End: 12-30-2023 Evaluation and management of inpatient Dr. Khanh Rodriguez Work Phone: [facility]-Progressive Care Unit Work Phone: Start: 11-29-2023 Non-patient / Non-visit Dr. Sukhdev Rodriguez Work Phone: After Hours Family Medicine-[facility] Start: 11-29-2023 End: 12-03-[address] Khanh Rodriguez Work Phone: [facility] Work Phone: Start: 11-29-2023 End: 12-03-[address] Khanh Rodriguez Work Phone: [facility]-Wound Healing Center Work Phone: Start: 11-22-2023 Non-patient / Non-visit Dr. Sukhdev Rodriguez Work Phone: After Hours Family Medicine-[facility] Start: 11-16-2023 Non-patient / Non-visit Dr. Sukhdev Rodriguez Work Phone: [facility] Start: 11-15-2023 End: 11-15-[address] Khanh Rodriguez Work Phone: [facility] Work Phone: Start: 11-15-2023 End: 11-15-[address] Khanh Rodriguez Work Phone: [facility]-Laboratory, [place] Start: 11-15-2023 End: 11-15-[address] Khanh Rodriguez Work Phone: [facility] Work Phone: Start: 11-15-2023 Non-patient / Non-visit Dr. Sukhdev Rodriguez Work Phone: [facility] Hours [facility] Start: 11-15-[address] Nigel [facility] Work [facility]: Start: 11-14-2023 End: 11-14-[address] Khanh Rodriguez Work Phone: [facility] Work Phone: Start: 11-14-2023 End: 11-14-[address] Khanh Rodriguez Work Phone: [facility]-Cardiovascul ar Services Work Phone: Start: 11-14-2023 Non-patient / Non-visit Dr. Sukhdev Rodriguez Work Phone: [facility] Start: 11-03-2023 End: 11-03-[address] Khanh Rodriguez Work Phone: [facility] Work Phone: Start: 11-03-2023 End: 11-03-[address] Khanh Rodriguez Work Phone: [facility] Work Phone: Start: 11-02-2023 Non-patient / Non-visit Dr. Sukhdev Rodriguez Work Phone: [facility] Start: 11-02-2023 End: 11-02-[address] Khanh Rodriguez Work Phone: [facility] Work Phone: Start: 11-02-2023 End: 11-02-[address] Khanh Rodriguez Work Phone: [facility] Vascular Surgery Work Phone: Start: 11-01-2023 Non-patient / Non-visit Dr. Sukhdev Rodriguez Work Phone: [facility] Start: 11-01-2023 End: 11-02-[address] Khanh Rodriguez Work Phone: [facility] Work Phone: Start: 11-01-2023 End: 11-02-[address] Khanh Rodriguez Work Phone: [facility]-Wound Healing Center Work Phone: Start: 10-26-2023 Non-patient / Non-visit Dr. Sukhdev Rodriguez Work Phone: [facility] Start: 10-26-2023 End: 10-26-2023 Admission to same day surgery center Dr. Khanh Rodriguez Work Phone: [facility]/Special Procedures Work Phone: Start: 10-26-2023 End: 10-26-[address] Khanh Rodriguez Work Phone: [facility] Work Phone: Start: 10-25-2023 Non-patient / Non-visit Dr. Sukhdev Rodriguez Work Phone: After [facility] Start: 10-25-[address] Nigel Rodriguez Work Phone: [facility] Work Phone: Start: 10-20-2023 Non-patient / Non-visit Dr. Sukhdev Rodriguez Work Phone: [facility] Start: 10-20-2023 End: 10-20-[address] Khanh Rodriguez Work Phone: [facility] Work Phone: Start: 10-20-2023 End: 10-20-[address] Khanh Rodriguez Work Phone: [facility]-Cardiovascul ar Services Work Phone: Start: 10-18-[address] Nigel Rodriguez Work Phone: [facility] Work Phone: Start: 10-13-2023 Non-patient / Non-visit Dr. Sukhdev Rodriguez Work Phone: [facility] Start: 10-13-2023 End: 10-13-[address] Khanh Rodriguez Work Phone: [facility] Work Phone: Start: 10-13-2023 End: 10-13-[address] Khanh Rodriguez Work Phone: [facility]-Cardiovascul ar Services Work Phone: Start: 10-11-2023 Non-patient / Non-visit Dr. Sukhdev Rodriguez Work Phone: [facility] Hours [facility] Start: 10-04-2023 Non-patient / Non-visit Dr. Sukhdev Rodriguez Work Phone: [facility] Hours [facility] Medicine[facility] Start: 10-04-2023 End: 10-04-[address] Khanh Rodriguez Work Phone: [facility] Work Phone: Start: 10-04-2023 End: 10-04-[address] Khanh Rodriguez Work Phone: [facility] Work Phone: Start: 09-27-2023 Non-patient / Non-visit Dr. Sukhdev Rodriguez Work Phone: [facility] Start: 09-21-2023 End: 09-21-[address] Khanh Rodriguez Work Phone: [facility] Vascular Surgery Work Phone: Start: 09-13-2023 Non-patient / Non-visit Dr. Sukhdev Rodriguez Work Phone: [facility] Hours [facility] Start: 08-30-2023 Non-patient / Non-visit Dr. Sukhdev Rodriguez Work Phone: [facility] Hours [facility] Start: 08-30-2023 End: 09-03-[address] Khanh Rodriguez Work Phone: [facility] Work Phone: Start: 08-23-2023 Non-patient / Non-visit Dr. Sukhdev Rodriguez Work Phone: After Hours Family Medicine-[facility] Start: 08-16-2023 Non-patient / Non-visit Dr. Sukhdev Rodriguez Work Phone: After Hours Family [facility] Start: 08-02-2023 End: 08-03-[address] Khanh [facility] Phone: [facility] Work Phone: Start: 07-26-2023 Non-patient / Non-visit Dr. Sukhdev Rodriguez Work Phone: After Hours [facility] Start: 07-24-2023 End: 07-24-[address] Khanh Rodriguez Work Phone: [facility] Work Phone: Start: 07-20-2023 End: 07-20-[address] Khanh Rodriguez Work Phone: [facility] Work Phone: Start: 07-12-2023 Non-patient / Non-visit Dr. Sukhdev Rodriguez Work Phone: [facility] Start: 07-10-[address] Nigel [facility] Start: 07-10-2023 End: 07-10-[address] Khanh Rodriguez Work Phone: [facility] Work Phone: Start: 07-05-2023 Non-patient / Non-visit Dr. Sukhdev Rodriguez Work Phone: After Hours [facility] Start: 06-28-2023 Non-patient / Non-visit Dr. Sukhdev Rodriguez Work Phone: [facility] Start: 06-28-2023 End: 07-04-[address] Khanh Rodriguez Work Phone: [facility] Work Phone: Start: 06-28-2023 End: 07-04-[address] Khanh Rodriguez Work Phone: [facility] Work Phone: Start: 06-28-2023 End: 06-28-[address] Khanh Rodriguez Work Phone: [facility] Work Phone: Start: 06-21-2023 Non-patient / Non-visit Dr. Sukhdev Rodriguez Work Phone: After Hours [facility] Start: 06-21-2023 End: 06-21-[address] Khanh Rodriguez Work Phone: [facility] Work Phone: Start: 06-19-2023 End: 06-19-[address] Khanh Rodriguez Work Phone: [facility] Work Phone: Start: 06-14-2023 Non-patient / Non-visit Dr. Sukhdev Rodriguez Work Phone: After Hours [facility] Start: 06-13-2023 Non-patient / Non-visit Dr. Sukhdev Rodriguez Work Phone: [facility] Start: 06-12-2023 End: 06-12-2023 Rosales Dickerson Work Phone: No Location Start: 06-12-2023 Non-patient / Non-visit Dr. Sukhdev Rodriguez Work Phone: [facility] Start: 06-12-2023 [facility] Start: 06-12-2023 End: 06-13-2023 Evaluation and management of inpatient Dr. Khanh Rodriguez [facility] Phone: [facility] Work Phone: Start: 06-08-2023 End: 06-08-2023 Non-patient / Non-visit Dr. Khanh Rodriguez Work Phone: [facility] Work Phone: Start: 06-05-2023 End: 06-05-[address] Khanh Rodriguez Work Phone: [facility] Work Phone: Start: 05-31-2023 End: 05-31-[address] Khanh Rodriguez Work Phone: [facility] Work Phone: Start: 05-31-2023 End: 05-31-[address] Khanh Rodriguez Work Phone: [facility] Work Phone: Start: 05-31-2023 Non-patient / Non-visit Dr. Sukhdev Rodriguez [facility] Phone[facility] Start: 05-31-2023 End: 06-03-[address] Khanh Rodriguez Work Phone: [facility] Work Phone: Start: 05-29-2023 End: 05-29-[address] Khanh Rodriguez Work Phone: [facility] Ultrasound Work Phone: Start: 05-24-[address] Nigel Rodriguez Work Phone: [facility] Start: 05-24-2023 End: 05-24-[address] Khanh Rodriguez Work Phone: [facility] Work Phone: Start: 05-23-2023 Non-patient / Non-visit Dr. Sukhdev Rodriguez Work Phone: After Hours [facility] Start: 05-16-2023 End: 05-16-[address] Khanh Rodriguez Work Phone: [facility] Work Phone: Start: 05-16-2023 End: 05-16-[address] Khanh Rodriguez Work Phone: [facility]-Laboratory, Specimen Work Phone: Start: 05-15-2023 End: 05-15-[address] Khanh Rodriguez Work Phone: [facility] Work Phone: Start: 05-10-2023 End: 05-10-[address] Khanh Rodriguez Work Phone: [facility] Work Phone: Start: 05-10-2023 End: 05-10-[address] Khanh Rodriguez Work Phone: [facility]-Outpatient Breast Imaging Work Phone: Start: 05-08-2023 Non-patient / Non-visit Dr. Sukhdev Rodriguez Work Phone: [facility] Start: 05-03-2023 End: 05-03-[address] Khanh Rodriguez Work Phone: [facility] Work Phone: Start: 05-03-2023 End: 05-03-[address] Khanh Rodriguez Work Phone: [facility]-Laboratory, [place] Start: 05-03-2023 End: 05-03-[address] Khanh Rodriguez Work Phone: [facility] Work Phone: Start: 04-26-[address] Gloria Rodriguez Work Phone: [facility] Start: 04-26-2023 End: 04-26-[address] Khanh Rodriguez Work Phone: [facility] Work Phone: Start: 04-26-2023 End: 04-26-2023 Emergency department patient visit Dr. Khanh Rodriguez Work Phone: [facility] Start: 04-26-2023 End: 04-26-[address] Khanh Rodriguez Work Phone: [facility] Internal [facility] Work Phone: Start: 04-19-2023 Non-patient / Non-visit Dr. Sukhdev Rodriguez Work Phone: After Hours Family Medicine[facility] Start: 04-19-2023 End: 05-01-[address] Khanh Rodriguez Work Phone: [facility] Work Phone: Start: 04-19-2023 End: 05-01-[address] Khanh Rodriguez Work Phone: [facility] Work Phone: Start: 04-19-[address] Nigel Rodriguez Work Phone: [facility] Work Phone: Start: 03-29-2023 Non-patient / Non-visit Dr. Sukhdev Rodriguez Work Phone: After Hours Family Medicine[facility] Start: 03-29-2023 End: 04-03-[address] Khanh Rodriguez Work Phone: [facility] Work Phone: Start: 03-29-2023 End: 04-03-[address] Khanh Rodriguez [facility] Work Phone: Start: 03-22-2023 Non-patient / Non-visit Dr. Sukhdev Rodriguez Work Phone: [facility] Hours [facility] Start: 03-15-2023 Non-patient / Non-visit Dr. Skuhdev Rodriguez Work Phone: [facility] Hours [facility] Start: 03-01-2023 Non-patient / Non-visit Dr. Sukhdev Rodriguez Work Phone: After Hours [facility] Start: 03-01-2023 End: 03-03-[address] Khanh Rodriguez Work Phone: [facility] Work Phone: Start: 03-01-2023 End: 03-03-[address] Khanh Rodriguez [facility] Phone[facility] Work Phone: Start: 02-22-2023 Non-patient / Non-visit Dr. Sukhdev Rodriguez Work Phone: [facility] Hours [facility] Start: 02-15-2023 Non-patient / Non-visit Dr. Sukhdev Rodriguez Work Phone: After Hours [facility] Start: 02-08-2023 End: 02-08-[address] Khanh Rodriguez [facility] Work Phone: Start: 02-08-2023 Non-patient / Non-visit Dr. Sukhdev Rodriguez Work Phone: [facility] Start: 02-01-2023 Non-patient / Non-visit Dr. Sukhdev Rodriguez Work Phone: [facility] Start: 02-01-2023 End: 02-01-[address] Khanh Rodriguez Work Phone: [facility] Work Phone: Start: 02-01-2023 End: 02-01-[address] Khanh Rodriguez [facility] Start: 01-25-2023 Non-patient / Non-visit Dr. Sukhdev Rodriguez Work Phone: [facility] Start: 01-20-2023 End: 01-20-[address] Khanh Rodriguez Work Phone: [facility] Work Phone: Start: 01-20-2023 End: 01-20-[address] Khanh Rodriguez Work Phone: [facility] Internal Medicine Start: 10-18-2022 Orders Only Yoseph macias MD Work Phone: Orthopaedics Comment on above: Pain (Primary Dx) Start: 05-31-2022 End: 05-31-2022 ambulatory No Primary Care Physician [facility] Work Phone: Start: 05-31-2022 End: 05-31-2022 Patient encounter procedure No Primary Care Physician [facility] Internal [facility] Start: 04-28-2022 End: 04-28-2022 ambulatory No Primary Care Physician [facility] Work Phone: Start: 04-28-2022 End: 04-28-2022 Discharged Recurring No Primary Care Physician [facility]-Physical Therapy Start: 04-28-2022 Registered Recurring No Primar y Care Physician [facility]-Physical Therapy Start: 04-13-2022 Registered Recurring No Primar y Care Physician [facility]-Physical Therapy Start: 04-11-2022 End: 04-11-2022 Patient encounter procedure No Primary Care Physician [facility] Internal Medicine Start: 04-06-2022 End: 04-06-2022 Discharged Recurring No Primary Care Physician [facility]-Physical Therapy Start: 04-06-2022 Registered Recurring No Primar y Care Physician [facility]-Physical Therapy Start: 03-31-2022 End: 03-31-2022 Patient encounter procedure No Primary Care Physician [facility]-Outpatient Bone Densitometry Start: 03-25-2022 End: 03-25-2022 Patient encounter procedure No Primary Care Physician [facility] Internal Medicine Start: 02-16-2022 End: 02-16-2022 Patient encounter procedure [facility]-Laboratory, Specimen Start: 10-26-2021 End: 10-26-2021 Juve Dickerson Work Phone: [facility] Start: 07-05-2021 End: 07-05-2021 Rosales Dickerson Work Phone: [facility] Start: 05-11-2021 End: 05-11-2021 Office outpatient visit 15 minutes Ihsan Franks Work Phone: [facility] Start: 04-15-2021 End: 04-15-2021 Office outpatient visit 15 minutes Charlotte Avery Work Phone: [facility] Start: 01-29-2021 End: 01-29-2021 Rosales Dickerson Work Phone: [facility] Start: 01-04-2021 End: 01-04-2021 Rosales Dickerson Work Phone: [facility] Start: 05-28-2020 End: 05-28-2020 Encounter for general adult medical examination without abnormal findings Delores Faria Work Phone: [employer] [facility] Start: 05-28-2020 End: 05-28-2020 Office outpatient visit 15 minutes Delores Faria Work Phone: [employer] [facility] Start: 02-03-2020 End: 02-03-2020 Subsequent hospital visit by physician Dipak Newby Work Phone: [facility] Comment on above: Arrived Start: 01-20-2020 End: 01-20-2020 Subsequent hospital visit by physician Dipak Newby Work Phone: [facility] Comment on above: Arrived Start: 01-14-2020 End: 01-14-2020 Subsequent hospital visit by physician Dipak Newby Work Phone: [facility] Comment on above: Arrived Start: 01-13-2020 End: 01-13-2020 Delores Faria Work Phone: [facility] [employer] [facility] Start: 01-13-2020 End: 01-13-2020 Office outpatient visit 25 minutes Delores Faria Work Phone: [employer] [facility] Start: 01-07-2020 End: 01-07-2020 Subsequent hospital visit by physician Dipak Newby Work Phone: [facility] Comment on above: Arrived Start: 12-23-2019 End: 12-23-2019 Subsequent hospital visit by physician Dipak Newby Work Phone: [facility] Start: 12-23-2019 End: 12-23-2019 Subsequent hospital visit by physician Dipak Newby Work Phone: [facility] Comment on above: Arrived Start: 06-24-2019 End: 06-24-2019 Abdirahman Conley Work Phone: No Location Start: 05-29-2019 End: 05-29-2019 Abdirahman Conley Work Phone: [employer] [facility] Start: 05-27-2019 End: 05-27-2019 Encounter for general adult medical examination without abnormal findings Abdirahman Conley Work Phone: [employer] Start: 05-27-2019 End: 05-27-2019 Office outpatient visit 25 minutes Abdirahman Jarvis Work Phone: [facility] Start: 05-17-2019 End: 05-17-2019 Delores Faria Work Phone: [facility] Start: 01-29-2019 End: 01-29-2019 Office outpatient visit 25 minutes Abdirahman Guilford Work Phone: [facility] Start: 06-11-2018 End: 06-11-2018 Gregorio Rodrigues Work Phone: [facility] Start: 05-23-2018 End: 05-23-2018 Encounter for general adult medical examination without abnormal findings Abdirahman Guilford Work Phone: [employer] Work Phone: Start: 05-23-2018 End: 05-23-2018 Office outpatient visit 15 minutes Abdirahman Guilford Work Phone: [facility] Start: 04-10-2018 End: 04-10-2018 Office outpatient new 30 minutes Abdirahman Jarvis Work Phone: [facility] Start: 08-16-2017 End: 08-16-2017 Ambulatory [facility] Encounter for genera l adult medical examination without abnormal findings Juve Dickerson MD [employer] Procedures Date Procedure Procedure Detail Performing Clinician [...] unilateral with pelvis 2-3 views 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 Khanh [...] 03-31-2022 Dual energy X-ray absorptiometry No Prim malcom Care Physician Start: 05-11-2021 End: 05-11-2021 BP [...] 01-14-2020 WOUND CENTER TREATMENT NOTE Dipak Grier [employer] Work Phone: Start: 01-13-2020 End: 01-13-2020 Collection [...] 12-23-2019 WOUND CENTER TREATMENT NOTE Dipak Grier [employer] Work Phone: Start: 05-27-2019 End: 05-27-2019 BP [...] Start: 05-23-2018 End: 05-23-2018 Tobacco Screening, Non-smoker Juev arvizu MD Start: 04-10-2018 End: 04-10-2018 Assay [...] P,Tdap,Td Vaccine (2 - Td or Tdap) [facility] Start: 06-04-2025 End: 06-04-2025 Patient encounter procedure 06/04/2025 3:00 PM EDT Office Visit Vascular Surgery [address] [id number] Gt Yin, DO [address] [place] [address] Venous ulcer [I83.009, L97.909] Vascular Surgery Comment on above: Venous ulcer [I83.00 9, L97.909] Start: 06-03-2025 End: 06-03-2025 ambulatory 06/03/2025 1:30 PM EDT OT/PT/Speech Visit [facility] Physical Therapy [address] [place], [place] [id number] Darrius Newton, PT [address] [place] [address] Spinal stenosis of lumbar region with neurogenic claudication [M48.062] [facility] Physical Therapy Comment on above: Spinal stenosis of l umbar region with neurogenic claudication [M48.062] Start: 06-03-2025 End: 06-03-2025 Patient encounter procedure 06/03/2025 10:30 AM EDT OT/PT/Speech Visit [facility] Physical Therapy [address] [place] [id number] Amanda Soto PT [address] [place] [address] Venous ulcer [I83.009, L97.909] [facility] Physical Therapy Comment on above: Venous ulcer [I83.00 9, L97.909] Start: 05-27-2025 End: 05-27-2025 Patient encounter procedure 05/27/2025 2:50 PM EDT Office Visit Plastic Surgery [address] [place] [address] Nayan Blackmon MD [address] [address] f/u drainage of venous ulcer-Amanda Soto referring Plastic Surgery Comment on above: f/u drainage of veno us ulcer-Amanda Soto referring Start: 05-27-2025 End: 05-27-2025 Patient encounter procedure 05/27/2025 10:30 AM EDT OT/PT/Speech Visit [facility] Physical Therapy [address] [place] [address] Amanda Soto, PT [address] [place] [address] Venous ulcer [I83.009, L97.909] [facility] Physical Therapy Comment on above: Venous ulcer [I83.00 9, L97.909] Start: 05-21-2025 Thyroid stimulating hormone measurement [facility] Start: 05-20-2025 End: 05-20-2025 Patient encounter procedure 05/20/2025 10:30 AM EDT OT/PT/Speech Visit [facility] Physical Therapy [address] [place] [address] Amanda Soto, PT [address] [place] [address] Venous ulcer [I83.009, L97.909] [facility] Physical Therapy Comment on above: Venous ulcer [I83.00 9, L97.909] Start: 05-13-2025 End: 05-13-2025 Patient encounter procedure 05/13/2025 10:30 AM EDT OT/PT/Speech Visit [facility] Physical Therapy [address] [place] [address] Amanda Soto, PT [address] [place] [address] Venous ulcer [I83.009, L97.909] [facility] Physical Therapy Comment on above: Venous ulcer [I83.00 9, L97.909] Start: 05-08-2025 X-ray of lumbosacral spine L/S Spine Min 4 Views [facility] Start: 05-08-2025 XR Spine Lumbar and Sacrum GE 4 Views [facility] Start: 05-06-2025 End: 05-06-2025 Patient encounter procedure 05/06/2025 10:30 AM EDT OT/PT/Speech Visit [facility] Physical Therapy [address] [place] [address] Amanda Soto, PT [address] [place] [address] Venous ulcer [I83.009, L97.909] [facility] Physical Therapy Comment on above: Venous ulcer [I83.00 9, L97.909] Start: 05-05-2025 Influenza vaccination [facility] Start: 04-29-2025 Prothrombin time [facility] Start: 04-29-2025 [facility] Start: 04-29-2025 End: 04-29-2025 Patient encounter procedure 04/29/2025 10:30 AM EDT OT/PT/Speech Visit [facility] Physical Therapy [address] [place] [address] Amanda Soto, PT [address] [place], [place] [id number] Venous ulcer [I83.009, L97.909] [facility] Physical Therapy Comment on above: Venous ulcer [I83.00 9, L97.909] Start: 04-28-2025 End: 04-28-2025 Patient encounter procedure 04/28/2025 9:30 AM EDT OT/PT/Speech Visit [facility] Physical Therapy [address] [place] [address] Amanda Soto, PT [address] [place] [address] Venous ulcer [I83.009, L97.909] [facility] Physical Therapy Comment on above: Venous ulcer [I83.00 9, L97.909] Start: 04-22-2025 End: 04-22-2025 Patient encounter procedure 04/22/2025 10:30 AM EDT OT/PT/Speech Visit [facility] Physical Therapy [address] [place] [address] Amanda Soto, PT [address] [place] [address] Venous ulcer [I83.009, L97.909] [facility] Physical Therapy Comment on above: Venous ulcer [I83.00 9, L97.909] Start: 04-15-2025 End: 04-15-2025 Patient encounter procedure 04/15/2025 10:30 AM EDT OT/PT/Speech Visit [facility] Physical Therapy [address] [place] [address] Amanda Soto, PT [address] [place] [address] Venous ulcer [I83.009, L97.909] [facility] Physical Therapy Comment on above: Venous ulcer [I83.00 9, L97.909] Start: 04-08-2025 End: 04-08-2025 Patient encounter procedure Plastic Surgery Comment on above: Right Lower Lateral leg Venous ulcer [I83.00 9, L97.909] Start: 04-01-2025 End: 04-01-2025 Patient encounter procedure 04/01/2025 10:30 AM EDT OT/PT/Speech Visit [facility] [address] [place] [address] Amanda Soto, PT [address] [place] [address] Venous ulcer [I83.009, L97.909] [facility] Comment on above: Venous ulcer [I83.00 9, L97.909] Start: 03-25-2025 End: 03-25-2025 Patient encounter procedure 03/25/2025 10:30 AM EDT OT/PT/Speech Visit [facility] [address] [place] [address] Amanda Soto, PT [address] [place] [address] Venous ulcer [I83.009, L97.909] [facility] Comment on above: Venous ulcer [I83.00 9, L97.909] Start: 03-18-2025 End: 03-18-2025 Patient encounter procedure Plastic Surgery Comment on above: Right Lower Lateral leg Venous ulcer [I83.00 9, L97.909] Start: 03-18-2025 End: 03-18-2025 Patient encounter procedure 03/18/2025 10:30 AM EDT OT/PT/Speech Visit [facility] [address] [place] [address] Amanda Soto, PT [address] [place] [address] Venous ulcer [I83.009, L97.909] [facility] Comment on above: Venous ulcer [I83.00 9, L97.909] Start: 03-11-2025 End: 03-11-2025 Patient encounter procedure 03/11/2025 10:30 AM EDT OT/PT/Speech Visit [facility] [address] [place] [address] Amanda Soto, PT [address] [place] [address] Venous ulcer [I83.009, L97.909] [facility] Physical [facility] Comment on above: Venous ulcer [I83.00 9, L97.909] Start: 03-03-2025 End: 03-03-2025 Patient encounter procedure 03/03/2025 3:30 PM EDT OT/PT/Speech Visit [facility] [address] [place] [address] Amanda Soto, PT [address] [place] [address] Venous ulcer [I83.009, L97.909] [facility] Physical Therapy Comment on above: Venous ulcer [I83.00 9, L97.909] Start: 03-03-2025 End: 03-03-2025 Patient encounter procedure 03/03/2025 9:30 AM EDT OT/PT/Speech Visit [facility] [address] [place] [address] Amanda Soto, PT [address] [place] [address] Venous ulcer [I83.009, L97.909] [facility] Physical Therapy Comment on above: Venous ulcer [I83.00 9, L97.909] Start: 02-25-2025 End: 02-25-2025 Patient encounter procedure Plastic Surgery Comment on above: Right Lower Lateral leg Patient confirmed- Start: 02-24-2025 End: 02-24-2025 Patient encounter procedure 02/24/2025 3:30 PM EDT OT/PT/Speech Visit [facility] Therapy [address] [place] [address] Amanda Soto, PT [address] [place] [address] Venous ulcer [I83.009, L97.909] [facility] Physical Therapy Comment on above: Venous ulcer [I83.00 9, L97.909] Start: 02-18-2025 End: 02-18-2025 Admission to same day surgery center 02/18/2025 1:00 PM EDT - 02/18/2025 2:00 PM EDT Surgery [facility] [address] [place] [address] [place] [address] [address] INSERT PICC W/O PORT OR PUMP ADULT W/O IMAGING GUIDANCE [facility] Comment on above: INSERT PICC W/O PORT OR PUMP ADULT W/O IMAGING GUIDANCE Start: 02-18-2025 End: 02-18-2025 Insertion picc w/o img gdn 5 yr/> INSERT PICC W/O PORT OR PUMP ADULT W/O IMAGING GUIDANCE Infection 02/18/2025 1:00 PM EDT ME IR Start: 02-18-2025 Subsequent hospital visit by physician 02/18/2025 1:00 PM EDT Hospital Encounter [facility] [facility] [address] [place] [address] [place] [address], [address] [address] Infection [B99.9] [facility] Comment on above: Infection [B99.9] Start: 02-17-2025 End: 02-17-2025 Patient encounter procedure 02/17/2025 3:30 PM EDT OT/PT/Speech Visit [facility] [address] [place] [address] Amanda Soto, PT [address] [place] [address] Venous ulcer [I83.009, L97.909] [facility] Comment on above: Venous ulcer [I83.00 9, L97.909] Start: 02-11-2025 End: 02-11-2025 Patient encounter procedure Plastic Surgery Comment on above: Patient confirmed- new to us abnormal w ound cultures- Dr. Yin referring Start: 02-10-2025 End: 02-10-2025 Patient encounter procedure 02/10/2025 3:30 PM EDT OT/PT/Speech Visit [facility] [address] [place] [address] Amanda Soto, PT [address] [place] [address] Venous ulcer [I83.009, L97.909] [facility] Comment on above: Venous ulcer [I83.00 9, L97.909] Start: 02-10-2025 End: 02-10-2025 Patient encounter procedure 02/10/2025 10:30 AM EDT OT/PT/Speech Visit [facility] [address] [place] [address] Amanda Soto, PT [address] [place] [address] Venous ulcer [I83.009, L97.909] [facility] Comment on above: Venous ulcer [I83.00 9, L97.909] Start: 02-03-2025 End: 02-03-2025 Patient encounter procedure 02/03/2025 3:30 PM EDT OT/PT/Speech Visit [facility] [address] [place] [address] Amanda Soto, PT [address] [place] [address] Venous ulcer [I83.009, L97.909] [facility] Comment on above: Venous ulcer [I83.00 9, L97.909] Start: 01-22-[address] [facility] Work Phone: Start: 01-20-2025 End: 01-20-2025 Patient encounter procedure 01/20/2025 9:30 AM EDT OT/PT/Speech Visit [facility] [address] [place] [address], [place] [id number] Amanda Soto, PT [address] [place], [place] [id number] Venous ulcer [I83.009, L97.909] [facility] Comment on above: Venous ulcer [I83.00 9, L97.909] Start: 01-13-2025 End: 01-13-2025 Patient encounter procedure 01/13/2025 9:30 AM EDT OT/PT/Speech Visit [facility] [address] [place] [address] Amanda Soto, PT [address] [place] [address] Venous ulcer [I83.009, L97.909] [facility] Comment on above: Venous ulcer [I83.00 9, L97.909] Start: 12-26-2024 Diabetes Screening Diabetes Screenin g [facility] Start: 09-04-2024 Advance Directive Discussion Advance Directive Discussion [facility] Start: 06-26-2024 End: 06-26-2024 Patient encounter procedure 06/26/2024 2:30 PM EDT OT/PT/Speech Visit [facility] [address] [place] [address] Amanda Soto, PT [address] [place] [address] Venous ulcer [I83.009, L97.909] [facility] Comment on above: Venous ulcer [I83.00 9, L97.909] Start: 06-25-2024 End: 06-25-2024 Patient encounter procedure 06/25/2024 9:30 AM EDT OT/PT/Speech Visit [facility] [address] [place] [address] Amanda Soto, PT [address] [place] [address] Venous ulcer [I83.009, L97.909] [facility] Comment on above: Venous ulcer [I83.00 9, L97.909] Start: 06-18-2024 End: 06-18-2024 Patient encounter procedure 06/18/2024 8:30 AM EDT OT/PT/Speech Visit [facility] [address] [place] [address] Amanda Soto, PT [address] [place] [address] Venous ulcer [I83.009, L97.909] [facility] Comment on above: Venous ulcer [I83.00 9, L97.909] Start: 06-12-2024 End: 06-12-2024 Patient encounter procedure 06/12/2024 1:30 PM EDT OT/PT/Speech Visit [facility] [address] [place] [address] Amanda Soto, PT [address] [place] [address] Venous ulcer [I83.009, L97.909] [facility] Comment on above: Venous ulcer [I83.00 9, L97.909] Start: 06-12-2024 End: 06-12-2024 Patient encounter procedure 06/12/2024 10:20 AM EDT Office Visit [facility] [address] [address] Monse Merlos [facility] [address] [place] [address] Degenerative scoliosis [M41.50] [facility] Comment on above: Degenerative scolios is [M41.50] Start: 06-04-2024 End: 06-04-2024 Patient encounter procedure 06/04/2024 9:30 AM EDT OT/PT/Speech Visit [facility] [address] [place] [address] Amanda Soto, PT [address] [place] [address] Venous ulcer [I83.009, L97.909] [facility] Comment on above: Venous ulcer [I83.00 9, L97.909] Start: 05-28-2024 End: 05-28-2024 Patient encounter procedure 05/28/2024 9:30 AM EDT OT/PT/Speech Visit [facility] [address] [place] [address] Amanda Soto, PT [address] [place] [address] Venous ulcer [I83.009, L97.909] [facility] Comment on above: Venous ulcer [I83.00 9, L97.909] Start: 05-21-2024 End: 05-21-2024 Patient encounter procedure 05/21/2024 9:30 AM EDT OT/PT/Speech Visit [facility] [address] [place] [address] Amanda Soto, PT [address] [place] [address] Venous ulcer [I83.009, L97.909] [facility] Comment on above: Venous ulcer [I83.00 9, L97.909] Start: 05-15-2024 End: 05-15-2024 Patient encounter procedure 05/15/2024 10:20 AM EDT Office Visit [facility] [address] [address] Monse Merlos [facility] [address] [place] [address] Degenerative scoliosis [M41.50] [facility] Comment on above: Degenerative scolios is [M41.50] Start: 05-14-2024 End: 05-14-2024 Patient encounter procedure 05/14/2024 9:30 AM EDT OT/PT/Speech Visit [facility] [address] [place] [address] Amanda Soto, PT [address] [place] [address] Venous ulcer [I83.009, L97.909] [facility] Comment on above: Venous ulcer [I83.00 9, L97.909] Start: 05-10-2024 End: 05-10-2024 Patient encounter procedure 05/10/2024 12:30 PM EDT OT/PT/Speech Visit [facility] [address] [place] [address] Amanda Soto, PT [address] [place] [address] Venous ulcer [I83.009, L97.909] [facility] Comment on above: Venous ulcer [I83.00 9, L97.909] Start: 05-08-2024 End: 05-08-2024 Patient encounter procedure 05/08/2024 9:30 AM EDT OT/PT/Speech Visit [facility] [address] [place] [address] Amanda Soto, PT [address] [place] [address] Venous ulcer [I83.009, L97.909] [facility] Comment on above: Venous ulcer [I83.00 9, L97.909] Start: 05-05-2024 Covid-19 Vaccine ( season) Covid-19 Vaccine ( season) [facility] Start: 05-05-2024 Covid-19 Vaccine ( season) Covid-19 Vaccine ( season) [facility] Start: 05-05-2024 Covid-19 Vaccine ( season) Covid-19 Vaccine ( season) [facility] Start: 05-05-2024 Influenza vaccination [facility] Start: 04-30-2024 End: 04-30-2024 Patient encounter procedure [facility] Comment on above: *use referral [id number]* Venous ulcer [I83.00 9, L97.909] Start: 04-30-2024 End: 04-30-2024 ambulatory 04/30/2024 8:15 AM EDT OT/PT/Speech Visit [facility] [address] [place] [address] Liseth Alanis, PT Other malaise [R53.81] [facility] Comment on above: Other malaise [R53.8 1] Start: 04-24-2024 End: 04-24-2024 Patient encounter procedure 04/24/2024 9:30 AM EDT OT/PT/Speech Visit [facility] [address] [place] [address] Amanda Soto, PT [address] [place] [address] Venous ulcer [I83.009, L97.909] [facility] Comment on above: Venous ulcer [I83.00 9, Y03.900] Start: 04-23-2024 End: 04-23-2024 ambulatory 04/23/2024 2:15 PM EDT OT/PT/Speech Visit [facility] [address] [place] [address] Liseth Alanis, PT Other malaise [R53.81]/Back Pain [facility] Comment on above: Other malaise [R53.8 1]/Back Pain Start: 04-23-2024 End: 04-23-2024 Patient encounter procedure 04/23/2024 10:30 AM EDT Office Visit Vascular Surgery [address] [place] [address] Gt Yin, DO [address] [place] [address] Venous (peripheral) insufficiency [I87.2]; Symptomatic varicose veins of both lower extremities [I83.893] Vascular Surgery Comment on above: Venous (peripheral) insufficiency [I87.2]; Symptomatic varicose veins of both lower extremities [I83.893] Start: 04-22-2024 End: 04-22-2024 Patient encounter procedure [facility] Comment on above: *use referral [id number]* Venous ulcer [I83.00 9, L97.909] Start: 04-16-2024 End: 04-16-2024 Patient encounter procedure [facility] Comment on above: *use referral [id number]* Venous ulcer [I83.00 9, L97.909] Start: 04-16-2024 End: 04-16-2024 ambulatory 04/16/2024 10:30 AM EDT OT/PT/Speech Visit [facility] [address] [facility] [place] [address] Liseth Alanis, PT Back Pain [facility] Comment on above: Back Pain Start: 04-10-2024 End: 04-10-2024 Patient encounter procedure 04/10/2024 11:30 AM EDT OT/PT/Speech Visit [facility] [address] [place] [address] Amanda Soto, PT [address] [place] [address] *use referral [id number]* [facility] Comment on above: *use referral [id number]* Start: 04-04-2024 End: 04-04-2024 Patient encounter procedure 04/04/2024 2:30 PM EDT OT/PT/Speech Visit [facility] [address] [place] [address] Amanda Soto, PT [address] [place] [address] *use referral [id number]* [facility] Comment on above: *use referral [id number]* Start: 04-03-2024 End: 04-03-2024 Patient encounter procedure 04/03/2024 2:30 PM EDT Office Visit Vasculary Surgery [address] [place] [address] Venous (peripheral) insufficiency [I87.2]; Symptomatic varicose veins of both lower extremities [I83.893] [facility] Comment on above: Venous (peripheral) insufficiency [I87.2]; Symptomatic varicose veins of both lower extremities [I83.893] Start: 04-02-2024 End: 04-02-2024 Patient encounter procedure Radiology Comment on above: hip pain L hip pain Start: 04-02-2024 End: 04-02-2024 Patient encounter procedure [facility] Comment on above: *use referral [id number]* Venous ulcer (HCC) [I83.009, L97.909] Venous (peripheral) insufficiency [I87.2] 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] lt hip replacement *use referral [id number]* Start: 03-26-2024 End: 03-26-2024 Patient encounter procedure [facility] Comment on above: *use referral [id number]* Venous ulcer (HCC) [I83.009, L97.909] Venous (peripheral) insufficiency [I87.2] 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] *use referral [id number]* Start: 03-26-2024 End: 03-26-2024 ambulatory 03/26/2024 11:15 AM EDT OT/PT/Speech Visit [facility] [address] [place] [address] Liseth Alanis, PT Dx: Other malaise [R53.81 (ICD-10-CM)] [facility] Comment on above: Dx: Other malaise [R 53.81 (ICD-10-CM)] Start: 03-20-2024 End: 03-20-2024 ambulatory 03/20/2024 12:00 PM EDT OT/PT/Speech Visit [facility] [address] [place] [address] Liseth Alanis, PT Dx: Other malaise [R53.81 (ICD-10-CM)] [facility] Comment on above: Dx: Other malaise [R 53.81 (ICD-10-CM)] Start: 03-19-2024 End: 03-19-2024 Patient encounter procedure [facility] Comment on above: *use referral [id number]* Venous ulcer (HCC) [I83.009, L97.909] Venous (peripheral) insufficiency [I87.2] 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] *use referral [id number]* Start: 03-13-2024 End: 03-13-2024 ambulatory 03/13/2024 12:45 PM EDT OT/PT/Speech Visit [facility] [address] [place] [address] Liseth Alanis, PT Dx: Other malaise [R53.81 (ICD-10-CM)] [facility] Comment on above: Dx: Other malaise [R 53.81 (ICD-10-CM)] Start: 02-27-2024 End: 02-27-2024 ambulatory 02/27/2024 5:15 PM EDT OT/PT/Speech Visit [facility] [address] [place] [address] Liseth Alanis, PT Dx: Other malaise [R53.81 (ICD-10-CM)] [facility] Comment on above: Dx: Other malaise [R 53.81 (ICD-10-CM)] Start: 02-27-2024 End: 02-27-2024 Patient encounter procedure 02/27/2024 8:30 AM EDT Office Visit Vascular Surgery [address] [place] [address] Gt Yin, DO [address] [place] [address] WALTER Galaviz [facility] (patient to have medical records transferred) Vascular Surgery Comment on above: WALTER perez [facility] (patient to have medical records transferred) Start: 02-20-2024 End: 02-20-2024 ambulatory 02/20/2024 10:30 AM EDT OT/PT/Speech Visit [facility] [address] [place] [address] Liseth Alanis, PT Other malaise [R53.81 (ICD-10-CM)] [facility] Comment on above: Other malaise [R53.8 1 (ICD-10-CM)] Start: 02-13-2024 End: 02-13-2024 ambulatory 02/13/2024 10:30 AM EDT OT/PT/Speech Visit [facility] [address] [place] [address] Liseth Alanis, PT Other malaise [R53.81 (ICD-10-CM)] [facility] Comment on above: Other malaise [R53.8 1 (ICD-10-CM)] Start: 02-06-2024 End: 02-06-2024 ambulatory 02/06/2024 8:15 AM EDT OT/PT/Speech Visit [facility] [address] [place] [address] Liseth Alanis, PT Other malaise [R53.81 (ICD-10-CM)] [facility] Comment on above: Other malaise [R53.8 1 (ICD-10-CM)] Start: 01-05-2024 Patient referral [facility] Work Phone: Start: 01-05-2024 Procedure [facility] Start: 12-30-2023 Referral to service [facility] Start: 12-30-[address] [facility] Start: 12-28-2023 Following clinical p athway protocol [facility] Start: 12-28-2023 [facility] Start: 12-28-2023 Wound care [facility] Start: 12-28-2023 Leukocyte reduced re d blood cells [facility] Start: 12-28-2023 [facility] Start: 12-28-2023 Administration of bl ood product [facility] Start: 12-27-2023 End: 12-28-2023 [facility] Start: 12-27-2023 Consultation for treatment [facility] Start: 12-27-2023 Following clinical p athway protocol [facility] Start: 12-27-2023 Ambulation without limitation [facility] Start: 12-27-2023 Assessment of risk o f venous thromboembolism [facility] Start: 12-27-2023 Insertion of cathete r into peripheral vein [facility] Start: 12-27-2023 Measuring intake and output [facility] Start: 12-27-2023 Providing care accor ding to standard [facility] Start: 12-27-2023 Referral to gastroenterology service [facility] Start: 12-27-2023 Referral to occupati onal therapist [facility] Start: 12-27-2023 Referral to service [facility] Start: 12-27-2023 Verification routine [facility] Start: 12-27-2023 Hospital admission, emergency, from emergency room, medical nature [facility] Start: 12-27-2023 Admission procedure [facility] Start: 12-27-2023 [facility] Start: 11-16-2023 Patient referral [facility] Work Phone: Start: 11-15-2023 Thiamine measurement [facility] Start: 10-26-[address] [facility] Start: 09-04-2023 Advance Directive Discussion Advance Directive Discussion [facility] Start: 09-04-2023 Behavioral Health Screening Behavioral Health Screening [facility] Start: 07-10-2023 Patient referral [facility] Work Phone: Start: 06-13-[address] [facility] Start: 06-12-2023 End: 06-12-2023 Referral to service [facility] Start: 06-12-2023 Anesthesia radical/modified radical breast ANESTH SURGERY OF BREAST [facility] Start: 06-12-2023 Mast modf rad w/ax l ymph nod w/wo pect/aleks min MAST MOD RAD [facility] Start: 06-12-2023 Catheterization of vein [facility] Start: 06-12-2023 Consultation for treatment [facility] Start: 06-12-2023 Deep breathing and coughing exercises [facility] Start: 06-12-2023 Elevation of head of bed [facility] Start: 06-12-2023 End: 06-12-2023 Following clinical pathway protocol [facility] Start: 06-12-2023 Incentive spirometry [facility] Start: 06-12-[address] [facility] Start: 06-12-2023 Referral to self hel p service [facility] Start: 06-12-2023 Taking patient vital signs [facility] Start: 06-12-2023 Vital signs measurements [facility] Start: 06-12-2023 Wound care [facility] Start: 06-12-2023 [facility] Start: 06-12-2023 Admission procedure [facility] Start: 06-12-2023 Patient referral to dietitian [facility] Start: 05-08-2023 Patient referral [facility] Work Phone: Start: 05-05-2023 Covid-19 Vaccine ( season) Covid-19 Vaccine () [facility] Start: 05-05-2023 Covid-19 Vaccine ( season) Covid-19 Vaccine ( season) [facility] Start: 04-26-2023 Patient referral [facility] Work Phone: Start: 04-26-2023 CBC W Auto Different ial panel - Blood [facility] Start: 04-26-2023 [facility] Start: 01-20-2023 Patient referral [facility] Work Phone: Start: 09-04-2022 ADVANCE DIRECTIVE DISCUSSION ADVANCE DIRECTIVE DISCUSSION [facility] Start: 09-04-2022 DEPRESSION ASSESSMENT DEPRESSION ASS ESSMENT [facility] Start: 05-05-2022 Influenza vaccination INFLUENZA (#1) [facility] Start: 03-25-2022 Patient referral [facility] Work Phone: Start: 06-08-2021 Shingrix Vaccine (2 of 2) Francis grix Vaccine (2 of 2) [facility] Start: 04-15-2021 Patient referral Referrals: Wa scular Surgery. [facility] [employer], [facility] Start: 05-28-2020 Patient referral Screening Mammo, [facility] [employer] [employer] Start: 05-12-2020 DIABETES SCREEN DIABETES SCREEN [facility] Start: 05-05-2020 Influenza vaccinatio n given INFLUENZA VACCINE (Season Ended) [facility] Start: 02-17-2020 End: 02-17-2020 Appointment 02/17/2020 Appointment Wound Care Dipak Newby DO [address] [place] [address] [phone] Isi Paul RN [facility] Start: 01-28-2020 [facility] ([id number]) , Appointment on: , Sent on: [facility] Start: 01-28-2020 End: 01-28-2020 Appointment 01/28/2020 Appointment Wound Dipak Bundy DO [address] [place] [address] [phone] Isi Paul RN [facility] Start: 01-20-2020 End: 01-20-2020 Appointment 01/20/2020 [place] [address] [place] [address] [phone] Isi Paul RN [facility] Start: 01-14-2020 End: 01-14-2020 Appointment 01/14/2020 [place] [address] [place] [address] [phone] Isi Paul RN [facility] Start: 01-13-2020 Patient referral DX MAMMO INCL CAD UNI L [facility] [employer] Start: 01-06-2020 End: 01-06-2020 Appointment 01/06/2020 Appointment Wound Dipak Bundy DO [address] [place] [address] [phone] Ileana De La Cruz RN [facility] Start: 06-24-2019 Patient referral DX MAMMO INCL CAD B I [facility] [employer] Start: 05-29-2019 [facility] [employer] Start: 05-27-2019 CCP IgG Antibo dies ([id number]), Ordered on: [facility] [employer] Start: 05-17-2019 Patient referral SCR MAMMO BI INCL C AD [facility] [employer] Start: 05-05-2019 Influenza vaccinatio n given INFLUENZA VACCINE (#1) [facility] Start: 10-05-2018 Medicare Annual Well ness Visit Medicare Annual Wellness Visit [facility] Start: 05-23-2018 Patient referral Referrals: Dermatology. Ashwin Duran MD [facility] [employer] Start: 2016 BONE DENSITY BONE DENSITY [facility] Start: 2016 Fall risk assessment FALL RISK [facility] Start: 2016 Glaucoma screening GLAUCOMA/EY E EXAM AGE 65+ [facility] Start: 2016 Osteoporosis risk assessment done BONE DENSITY SCREENING [facility] Start: 2016 Pneumococcal polysaccharide vaccine (product) PNEUMONIA VACCINE (PCV13 PPSV23) (1 of 2 - PCV13) [facility] Start: 2016 PNEUMOCOCCAL: 65+ (1 - PCV) PNEUMOCOCCAL: 65+ (1 - PCV) [facility] Start: 2016 Screening for osteoporosis Bone Dens ity Screening [facility] Start: 04-29-2016 Lipid panel Lipid Screening [facility] Start: 04-29-2016 LIPID SCREEN LIPID SCREEN [facility] Start: 05-05-2012 Mammography MAMMOGRAM [facility] Start: 05-05-2012 Screening for malign ant neoplasm of breast Mammogram Screening [facility] Start: 2011 RSV Vaccine (1 - 1-d ose 60+ series) RSV Vaccine (1 - 1-dose 60+ series) [facility] Start: 2011 RSV Vaccine (1 - Ris k 60-74 years 1-dose series) RSV Vaccine (1 - Risk 60-74 years 1-dose series) [facility] Start: 2011 Varicella-zoster vac cine (product) ADULT VZV VACCINE [facility] Start: 09-15-2009 Colonoscopy COLONOSCOPY [facility] Start: 09-15-2009 COLORECTAL CANCER SCREENING COLORECTAL CANCER SCREENING [facility] Start: 09-15-2009 Screening for malign ant neoplasm of colon [facility] Start: 2001 Colonoscopy COLONOSCOPY 10 YR [facility] Start: 2001 Screening for malign ant neoplasm of colon [facility] Start: 2001 SHINGLES VACCINE (1 of 2) FRANCIS GLES VACCINE (1 of 2) [facility] Start: 2001 SHINGRIX VACCINE (1 of 2) FRANCIS GRIX VACCINE (1 of 2) [facility] Start: 09-05-2001 Urine microalbumin profile DTA P,TDAP,TD (1 - Tdap) [facility] Start: 1996 COLOGUARD (FIT-DNA) COLOGUARD (FIT-D NA) [facility] Start: [address] COLONOGRAPHY [facility] Start: 1996 FECAL OCCULT BLOOD FECAL OCCULT BLOO D [facility] Start: 1996 Screening for malign ant neoplasm of colon [facility] Start: 1996 SIGMOIDOSCOPY SIGMOIDOSCOPY [facility] Start: 1991 Screening mammography MAMMOGRAM G [facility] Start: 1972 Tetanus, diphtheria and acellular pertussis vaccination TDAP/TD ADULT [facility] Start: 1970 Pneumococcal Vaccine : 50+ (1 of 2 - PCV) Pneumococcal Vaccine: 50+ (1 of 2 - PCV) [facility] Start: 1969 ANNUAL WELLNESS VISIT ANNUAL WELLNES S VISIT [facility] Start: 1969 Depression Screening Depression Scre ing [facility] Start: 1963 Adult depression [facility] DEPRESSION SCREENING [facility] Start: 1957 Pneumococcal Vaccine : 65+ (1 of 2 - PCV) Pneumococcal Vaccine: 65+ (1 of 2 - PCV) [facility] Start: 03-24-1951 COVID-19 VACCINE (#1) COVID-19 VACCI NE (#1) [facility] Start: 1951 Hepatitis C screening HEPATITIS C [facility] Alanine aminotransfe rase [Enzymatic activity/volume] in Serum or Plasma [facility] Albumin [Mass/volume ] in Serum or Plasma [facility] Alkaline phosphatase [Enzymatic activity/volume] in Serum or Plasma [facility] Anion gap measurement [facility] Ankle brachial press ure index [facility] Aspartate aminotrans ferase [Enzymatic activity/volume] in Serum or Plasma [facility] Bacteria identified in Wound by Culture BACTERIAL CULTURE AND GRAM STAIN, ABSCESS AND WOUND (AEROBIC CULTURE) Microbiology Routine Venous ulcer of right lower extremity with varicose veins ([facility]) 01/28/2025 11:30 AM EDT [facility] Work Phone: Bacteria identified in Wound by Culture BACTERIAL CULTURE AND GRAM STAIN, ABSCESS AND WOUND (AEROBIC CULTURE) Microbiology Routine Venous stasis ulcer of calf with fat layer exposed, unspecified laterality, unspecified whether varicose veins present ([facility]) 05/20/2025 11:51 AM EDT [facility] Work Phone: Bilirubin, total measurement [facility] BUN/Creatinine ratio [facility] Calcium [Mass/volume ] in Serum or Plasma [facility] Carbon dioxide, tota l [Moles/volume] in Serum or Plasma [facility] CBC W Auto Different ial panel - Blood [facility] CBC W Auto Different ial panel - Blood [facility] CBC W Auto Different ial panel - Blood [facility] CBC W Auto Different ial panel - Blood [facility] CBC W Auto Different ial panel - Blood [facility] Chloride [Moles/volu me] in Serum or Plasma [facility] Clostridioides diffi cile DNA [Presence] in Unspecified specimen by JAMESON with probe detection [facility] metabo lic 1999 panel - Serum or Plasma [facility] Comprehensive metabo lic 1999 panel - Serum or Plasma [facility] Comprehensive metabo lic 1999 panel - Serum or Plasma [facility] Creatinine [Moles/vo lume] in Serum or Plasma [facility] DXA Bone [Mass/Area] Bone density [facility] Work Phone: DXA Bone [Mass/Area] Bone density [facility] Gastrointestinal pat hogens panel - Stool by JAMESON with probe detection [facility] Glucose [Mass/volume ] in Serum or Plasma [facility] Hematocrit [Volume Fraction] of Blood [facility] Hemoglobin [Mass/vol ume] in Blood [facility] Leukocytes [#/volume ] in Blood [facility] Mean corpuscular hemoglobin concentration determination [facility] Mean corpuscular hemoglobin determination [facility] Measurement of renal function [facility] MG Breast - bilatera l Screening [facility] Natriuretic peptide. B prohormone N-Terminal [Mass/volume] in Serum or Plasma [facility] Neutrophil count [facility] Neutrophil percent differential count [facility] Patient referral [facility] Work Phone: Platelets [#/volume] in Blood [facility] Potassium [Moles/vol ume] in Serum or Plasma [facility] Red blood cell count [facility] Red cell distributio n width determination [facility] Sodium [Moles/volume ] in Serum or Plasma [facility] Total protein measurement [facility] Urea nitrogen [Mass/volume] in Serum or Plasma [facility] Urinalysis complete panel - Urine [facility] US Breast limited [facility] US Carotid arteries [facility] Heart [facility] Heart [facility] End: 02-26-2025 US Vein - bilateral US VENOUS INCOMPETENCY [facility] Routine Venous (peripheral) insufficiency Symptomatic varicose veins of both lower extremities 1 Occurrences starting 02/27/2024 until 02/26/2025 [facility] Work Phone: Comment on above: 1 Occurrences starti ng 02/27/2024 until 02/26/[address] [facility] Vitamin D, 25-hydrox y measurement [facility] End: 12-23-2019 Wound culture Wound culture Microbiology Routine One Time for 1 Occurrences starting 12/23/2019 until 12/23/2019 [facility] Comment on above: One Time for 1 Occur rences starting 12/23/2019 until 12/23/2019 Wound culture [facility] End: 01-14-2020 Wound culture Wound culture Microbiology Routine One Time for 1 Occurrences starting 01/14/2020 until 01/14/2020 [facility] Comment on above: One Time for 1 Occur rences starting 01/14/2020 until 01/14/2020 End: 11-17-2023 XR HIP GENERAL 3V PELV/AP/LAT LEFT XR HIP GENERAL 3V PELV/AP/LAT LEFT Radiology Routine Pain 1 Occurrences starting 10/18/2022 until 11/17/2023 [facility] Work Phone: Comment on above: 1 Occurrences starti ng 10/18/2022 until 11/17/2023 XR Lumbar spine 2 or 3 Views [facility] Immunizations Immunization Date Immunization Notes Care Provider Destiny arias 06-16-2022 Covid Pfizer Bivalen t Booster Dr. Khanh Rodriguez MD Work Phone: [facility] 06-12-[address] Khanh Rodriguez MD Work Phone: [facility] 04-25-2021 tetanus toxoid, redu leon diphtheria toxoid, and acellular pertussis vaccine, adsorbed Dr. Khanh Rodriguez MD Work Phone: [facility] 04-13-[address] Khanh Rodriguez MD Work Phone: [facility] 01-05-2021 Covid (Pfizer) Dr. Khanh Rodriguez MD Work Phone: [facility] 12-15-2020 Covid (Pfizer) Dr. Khanh Rodriguez MD Work Phone: [facility] 07-19-2002 hepatitis A vaccine, pediatric/adolescent dosage, [address] Khanh Rodriguez MD Work Phone: [facility] 07-19-2002 hepatitis A vaccine, unspecified formulation Yoseph Briones MD Work Phone: [facility] 07-19-2002 hepatitis B vaccine, adult dosage Yoseph Briones MD Work Phone: [facility] 10-23-2001 hepatitis A vaccine, pediatric/adolescent dosage, [address] Khanh Rodriguez MD Work Phone: [facility] 10-23-2001 hepatitis A vaccine, unspecified formulation Yoseph Briones MD Work Phone: [facility] 10-23-2001 hepatitis B vaccine, adult dosage Yoseph Briones MD Work Phone: [facility] 09-04-2001 tetanus and diphther ia toxoids, not adsorbed, for adult use Yoseph Briones MD Work Phone: [facility] Work Phone: Payers Date Payer Category Payer Self-pay [id number] 2021 Private Health Insurance MMO MEDICARE SUPPLEMENT [id number] 2021 Unknown [id number] 2018 Medicare xxxxxxxxxxxx [id number] 2018 Unknown [id number]. [id number] 2016 Medicare [id number] 2016 Medicare [id number] Medicare MEDICARE MEDICAR E PART A & B xxxxxxxxxxx Effective for all dates [address] [place] [address] Medicare xxxxxxxxxxx [id number] Unknown [id number] 2.16.840.1.165089.3.579.2. 462 Unknown [id number] 2.16840.1.787287.3.579.2. 462 Unknown [id number] 2.840.1.403360.3.579.2. 462 Unknown [id number] 2.16840.1.846504.3.579.2. 462 Unknown [id number] 2.16840.1.656412.3.579.2. 462 Unknown [id number] 2.840.1.162454.3.579.2. 462 Unknown [id number] 2.840.1.847254.3.579.2. 462 Unknown [id number] 2.840.1.010496.3.579.2. 462 Unknown [id number] 2.840.1.028465.3.579.2. 462 Unknown [id number] 2.840.1.035528.3.579.2. 462 Unknown [id number] 2.840.1.474663.3.579.2. 462 Unknown [id number] 2.840.1.979143.3.579.2. 462 Unknown [id number] 2.840.1.238575.3.579.2. 462 Unknown [id number] .840.1.428209.3.579.2. 462 Unknown [id number] .840.1.340061.3.579.2. 462 Unknown [id number] .840.1.753061.3.579.2. 462 Unknown [id number] 2.840.1.166727.3.579.2. 462 Unknown [id number] 2.840.1.204982.3.579.2. 462 Unknown [id number] 2.840.1.698037.3.579.2. 462 Unknown [id number] 2.840.1.566575.3.579.2. 462 Unknown [id number] 2..840.1.561366.3.579.2. 462 Unknown [id number] 2.16840.1.714440.3.579.2. 462 Unknown [id number] 2.840.1.739643.3.579.2. 462 Social History Date Type Detail Facility Tobacco smoking status NHIS Unknown if ever smoked [facility] Sex Assigned At Not on file [facility] Start: 10-26-2021 End: 12-30-2023 Tobacco smoking status NHIS Unknown if ever smoked [facility] Start: 10-26-2021 Alcohol intake Alcohol Use Details [facility] Start: 1950 [facility] Start: 04-04-2012 End: 05-07-2025 Tobacco smoking status ILIS Never smoked tobacco [facility] Start: 04-04-2012 End: 02-27-2024 Tobacco use and exposure Smokeless tobacco non-user [facility] Start: 06-05-2019 End: 04-08-2025 Alcohol intake Current drinker of alcohol (finding) [facility] Start: 03-28-2017 Alcohol Comment 3 glasses of w ine daily-quit 05/2016 [facility] Start: 06-05-2019 End: 01-30-2024 History of Social function [facility] Start: 06-05-2019 End: 01-30-2024 Tobacco use panel [facility] Start: 08-05-2012 National Score (1-100), lower number is lower risk 99 [facility] Start: 07-04-2019 Gender identity Identifies as female gender (finding) [facility] Start: 07-04-2019 Sexual orientation Heterosexual (fin ding) [facility] NEGATED: Highlighted row [facility] Medical Equipment Procedure Code Equipment Code Equipment Origin al Text Equipment Identifier Dates EGD, with monitored anesthesia care Oesophageal endoscopic ligator, single-useHaemorrhoi d ligator [id number] FDA Start: 12-28-2023 Collagen haemost atic agent, non-antimicrobial [id number] FDA Start: 06-12-2023 Ligation clip, metallic [id number] FDA Start: 06-12-2023 Ligation clip, metallic [id number] FDA Start: 06-12-2023 Goals Date Patient Goal Desired Activity /State Personal health goal Functional Status Date Assessment Result Facility 12-30-2023 Functional status Ambulates [facility] Work Phone: 12-29-2023 Functional status Tolerates Activity Well [facility] Work Phone: 06-13-2023 Functional status Chair [facility] Work Phone: Mental Status Date Assessment Result Facility 04-25-2025 Cognitive function Voice/Name [facility] Work Phone: 03-28-2025 Cognitive function Voice/Name [facility] Work Phone: 01-31-2025 Cognitive function Voice/Name [facility] Work Phone: 12-30-2023 Cognitive function Voice/Name [facility] Work Phone: 06-13-2023 Cognitive function Level Of Cons ciousness Awake;Alert;Appropriate;Follow s Commands [facility] Work Phone: 06-13-2023 Cognitive function Voice/Name [facility] Work Phone: Clinical Notes 05-28-2020 to 06-03-2025 Amanda Soto, PT - 05/20/2025 11:40 AM Amanda Tipton, PT - 05/13/2025 11:40 AM Amanda Tipton, PT - 05/06/2025 11:40 AM EDT Note Date & Type Note Facility 06-03-2025 Note [facility] 06-02-2025 Note [facility] 06-01-2025 Note [facility] 06-01-2025 Note [facility] 05-31-2025 Note [facility] 05-31-2025 Note [facility] 05-30-2025 Note [facility] 05-29-2025 Note HNO ID: [id number] Author: NAUN DAVIS DPM Service: Podiatry Author Type: Physician Type: Plan of Care Filed: 05/29/2025 20:10 Note Text: Plan for OR debridement of wounds RIGHT and LEFT lower leg tomorrow with Dr Dougherty. NPO at midnight [facility] 05-29-2025 Note [facility] 05-29-2025 Note [facility] 05-27-2025 Note [facility] 05-27-2025 Note [facility] 05-27-2025 Note [facility] 05-20-2025 History of Presen t illness Narrative Episode Visit Count: 20 Therapist That Will Accept/Oversee The Plan Of Care: Amanda Soto Start of Care Date: 01/06/25 Onset Date: 08/14/24 (second week of August) Plan of Care Certification Date: 04/01/25 Next Certification Due Date: 07/05/25 Patient Identified by Name and Date of : Yes [facility] PHYSICAL THERAPY WOUND [...] culture was taken. Conservative Sharp Debridement <20cm (67878): 5 mm curette used to selectively remove [...] removed from the wound bed Nonselective Debridement (57575): Cleansed the RIGHT LE with warm soapy [...] Compression Therapy (Multilayer Venous Wound Compression System) (35693): Skilled interventions: -Skilled knowledge of wound care [...] rendered are medically necessary. Noncontact Ultrasound Mist (21276): no charge (bundled) Selective Sharp Debridement <20cm (34617): 1 unit Nonselective debridement (99093): no charge (bundled) Multi-Layer Venous Wound Compression System (91121): 1 unit (untimed) Session Start Time : 1034 Session Stop Time : 1138 Total Time: 64 minutes Amanda Soto PT documented in this encounter [facility] 05-20-2025 Note [facility] 05-13-2025 History of Presen t illness Narrative Episode Visit Count: 19 Therapist That Will Accept/Oversee The Plan Of Care: Amanda Soto Start of Care Date: 01/06/25 Onset Date: 08/14/24 (second week of August) Plan of Care Certification Date: 04/01/25 Next Certification Due Date: 07/05/25 Patient Identified by Name and Date of : Yes [facility] PHYSICAL THERAPY WOUND [...] over news from a spinal MD in [place] that she feels like the patients bones [...] Partial thickness TREATMENT: Conservative Sharp Debridement <20cm (23024): 5 mm curette used to selectively remove [...] removed from the wound bed Nonselective Debridement (92757): dressings removed. Cleansed the RIGHT LE with [...] Compression Therapy (Multilayer Venous Wound Compression System) (64781): Skilled interventions: -Skilled knowledge of wound care [...] rendered are medically necessary. Noncontact Ultrasound Mist (32033): no charge (bundled) Selective Sharp Debridement <20cm (24191): 1 unit Nonselective debridement (98941): no charge (bundled) Multi-Layer Venous Wound Compression System (57124): 1 unit (untimed) Session Start Time : 1043 Session Stop Time : 1135 Total Time: 52 minutes Amanda Soto PT documented in this encounter [facility] 05-13-2025 Note [facility] 05-06-2025 History of Presen t illness Narrative Episode Visit Count: 18 Therapist That Will Accept/Oversee The Plan Of Care: Amanda Soto Start of Care Date: 01/06/25 Onset Date: 08/14/24 (second week of August) Plan of Care Certification Date: 04/01/25 Next Certification Due Date: 07/05/25 Patient Identified by Name and Date of : Yes [facility] PHYSICAL THERAPY WOUND [...] Wound Healing % -21 Drainage Description Serosanguineous-purulent (yellow-[place] green hue). Drainage Amount Large with Strikethrough Odor Mild Elif-Wound Treatment Vaseline;Zinc Oxide;Betadine Treatments Cleansed;Mechanical Debridement;PT Compression;PT Debridement;PT Mist Therapy Dressing Changed Changed State of Healing Early/partial granulation Wound Bed Granulation (%) 65 % Wound Bed Epithelium (%) 10 % Wound Bed Slough (%) 25 % (marbled slough and fibrotic tissue) Non-staged Wound Description Partial thickness TREATMENT: Conservative Sharp Debridement <20cm (28536): 5 mm curette used to selectively remove [...] removed from the wound bed Nonselective Debridement (03281): dressings removed. Cleansed the RIGHT LE with [...] Compression Therapy (Multilayer Venous Wound Compression System) (56710): Skilled interventions: -Skilled knowledge of wound care [...] Treatment/Symptom(s): See above Billing: Noncontact Ultrasound Mist (60095): no charge (bundled) Selective Sharp Debridement <20cm (26171): 1 unit Nonselective debridement (74794): no charge (bundled) Multi-Layer Venous Wound Compression System (53143): 1 unit (untimed) Session Start Time : 1047 Session Stop Time : 1143 Total Time: 56 minutes Amanda Soto PT documented in this encounter [facility] 05-06-2025 Note [facility] 04-29-2025 Evaluation note Diagnosis Onset Date Resolution [...] 2025 8:04am Osteoporosis chronic May 212024 8:04am [facility] Work Phone: 1(149) 610-827008-25-2025 History of Present illness Narrative* Amanda Soto, [...] and Date of : Yes [facility] PHYSICAL THERAPY WOUND [...] Partial thickness TREATMENT: Conservative Sharp Debridement <20cm (61533): 5 mm curette used to selectively remove [...] removed from the wound bed Nonselective Debridement (24257): dressings removed. Cleansed the RIGHT LE with [...] Compression Therapy (Multilayer Venous Wound Compression System) (69180): Skilled interventions: -Skilled knowledge of wound care [...] Treatment/Symptom(s): See above Billing: Noncontact Ultrasound Mist (95192): no charge (bundled) Selective Sharp Debridement <20cm (13220): 1 unit Nonselective debridement (64035): no charge (bundled) Multi-Layer Venous Wound Compression System (60146): 1 unit (untimed) Session Start Time : 933 Session Stop Time : 1029 Total Time: 55 minutes Amanda [facility] PT [facility] 04-22-2025 History of Present illness [...] and Date of : Yes [facility] PHYSICAL THERAPY WOUND [...] 11:00 AM Site Assessment Red;Yellow;[place]-Wound Assessment Erythematous;Fragile;Hyperpigmented;[place];Moist ;Painful Wound Length (cm) 8.2 cm Wound [...] associated orders. TREATMENT: Conservative Sharp Debridement <20cm (43874): 5 mm curette used to selectively remove [...] removed from the wound bed Nonselective Debridement (72328): dressings removed. Cleansed the RIGHT LE with [...] Compression Therapy (Multilayer Venous Wound Compression System) (92664): Skilled interventions: -Skilled knowledge of wound care [...] See above Billing: Selective Sharp Debridement <20cm (55910): 1 unit Nonselective debridement (78356): no charge (bundled) Multi-Layer Venous Wound Compression System (25950): 1 unit (untimed) Session Start Time : 1042 Session Stop Time : 1133 Total Time: 51 minutes Amanda Soto PT [facility] 04-15-2025 History of Present illness Narrative* Amanda Soto, PT - 04/15/2025 11:35 AM EDT Episode Visit Count: 15 Therapist That Will Accept/Oversee The Plan Of Care: Amanda Soto Start of Care Date: 01/06/25 Onset Date: 08/14/24 (second of August) Plan of Care Certification Date: 04/01/25 Next Certification Due Date: 07/05/25 Patient Identified by Name and Date of : Yes [facility] PHYSICAL THERAPY WOUND [...] associated orders. TREATMENT: Conservative Sharp Debridement <20cm (38051): 5 mm curette used to selectively remove [...] removed from the wound bed Nonselective Debridement (54458): dressings removed. Cleansed the RIGHT LE with [...] Compression Therapy (Multilayer Venous Wound Compression System) (20540): Skilled interventions: -Skilled knowledge of wound care [...] Treatment/Symptom(s): See above Billing: Noncontact Ultrasound Mist (83517): no charge (bundled) Selective Sharp Debridement <20cm (77381): 1 unit Nonselective debridement (54276): no charge (bundled) Multi-Layer Venous Wound Compression System (67580): 1 unit (untimed) Session Start Time : 1049 Session Stop Time : 1138 Total Time: 49 minutes Amanda Soto, PT [facility] 04-08-2025 [facility]08-05-2025 [facility]08-05-2025 [facility] History of Present illness Narrative* Amanda Soto, [...] and Date of : Yes [facility] PHYSICAL THERAPY WOUND [...] associated orders. TREATMENT: Conservative Sharp Debridement <20cm (06057): 5 mm curette used to selectively remove [...] removed from the wound bed Nonselective Debridement (09445): dressings removed. Cleansed the RIGHT LE with [...] Compression Therapy (Multilayer Venous Wound Compression System) (01342): Skilled interventions: -Skilled knowledge of wound care [...] Treatment/Symptom(s): See above Billing: Noncontact Ultrasound Mist (90307): no charge (bundled) Selective Sharp Debridement <20cm (49689): 1 unit Nonselective debridement (05976): no charge (bundled) Multi-Layer Venous Wound Compression System (25656): 1 unit (untimed) Session Start Time : 1056 Session Stop Time : 1143 Total Time: 47 minutes Amanda Soto PT [facility] 03-25-2025 History of Present illness [...] and Date of : Yes [facility] PHYSICAL THERAPY WOUND [...] associated orders. TREATMENT: Conservative Sharp Debridement <20cm (60243): 5 mm curette used to selectively remove [...] removed from the wound bed Nonselective Debridement (20803): dressings removed. Cleansed the RIGHT LE with [...] Compression Therapy (Multilayer Venous Wound Compression System) (41554): Skilled interventions: -Skilled knowledge of wound care [...] Treatment/Symptom(s): See above Billing: Noncontact Ultrasound Mist (44764): no charge (bundled) Selective Sharp Debridement <20cm (91749): 1 unit Nonselective debridement (54564): no charge (bundled) Multi-Layer Venous Wound Compression System (52383): 1 unit (untimed) Session Start Time : 1043 Session Stop Time : 1140 Total Time: 57 minutes Amanda Soto PT documented in this encounterSheltering [facility] Hospital07-22-2025 [facility] 03-19-2025 History of Present illness [...] and Date of : Yes [facility] PHYSICAL THERAPY WOUND [...] associated orders. TREATMENT: Conservative Sharp Debridement <20cm (74339): 5 mm curette used to selectively remove [...] removed from the wound bed Nonselective Debridement (28271): dressings removed. Cleansed the RIGHT LE with [...] Compression Therapy (Multilayer Venous Wound Compression System) (88647): Skilled interventions: -Skilled knowledge of wound care [...] Treatment/Symptom(s): See above Billing: Noncontact Ultrasound Mist (68621): no charge (bundled) Selective Sharp Debridement <20cm (21304): 1 unit Nonselective debridement (27270): no charge (bundled) Multi-Layer Venous Wound Compression System (16452): 1 unit (untimed) Session Start Time : 8 Session Stop Time : 1232 Total Time: 54 minutes Amanda Soto PT documented in this encounterSheltering Arms Hospital07-16-2025 [facility] 03-11-2025 History of Present illness [...] and Date of : Yes [facility] PHYSICAL THERAPY WOUND [...] associated orders. TREATMENT: Conservative Sharp Debridement <20cm (02628): 5 mm curette used to selectively remove [...] removed from the wound bed Nonselective Debridement (76403): dressings removed. Cleansed the RIGHT LE with [...] Compression Therapy (Multilayer Venous Wound Compression System) (43190): Skilled interventions: -Skilled knowledge of wound care [...] Treatment/Symptom(s): See above Billing: Noncontact Ultrasound Mist (09983): no charge (bundled) Selective Sharp Debridement <20cm (07226): 1 unit Nonselective debridement (36453): no charge (bundled) Multi-Layer Venous Wound Compression System (25282): 1 unit (untimed) Session Start Time : 1036 Session Stop Time : 1142 Total Time: 66 minutes Amanda Soto PT documented in this encounterSheltering Arms Hospital07-08-2025 [facility] 03-03-2025 [facility]06-30-2025 History of Present illness Narrative* [...] and Date of : Yes [facility] PHYSICAL THERAPY WOUND [...] associated orders. TREATMENT: Conservative Sharp Debridement <20cm (31256): 5 mm curette used to selectively remove [...] removed from the wound bed Nonselective Debridement (35633): dressings removed. Cleansed the RIGHT LE with [...] Compression Therapy (Multilayer Venous Wound Compression System) (19060): Skilled interventions: -Skilled knowledge of wound care [...] Treatment/Symptom(s): See above Billing: Noncontact Ultrasound Mist (10016): no charge (bundled) Selective Sharp Debridement <20cm (42288): 1 unit Nonselective debridement (66837): no charge (bundled) Multi-Layer Venous Wound Compression System (81912): 1 unit (untimed) Session Start Time : 932 Session Stop Time : 1028 Total Time: 56 minutes Amanda Soto PT documented in this encounterSheltering Arms Hospital06-24-2025 Telephone encounter Note * Telephone Encounter - Nikki Beth LPN - 02/25/2025 3:57 PM EDT Per Lorri-- PICC line care Cefepime changed to zosyn Labs rev and discussed. Plts low at 89 and WBC 3.[address] Rodriguez office to get baseline platelet and WBC. If dropped significantly then stop zosyn and remove line. Repeat labs on Follow up in the [facility] w ID in 3 weeks Continue aggressive [...] going to fax the summary visit to [facility]. I also called Mary with nursing and Tim with [facility] and gave the above orders. [facility]06-[facility] Miscellaneous Notes* Telephone Encounter - Nikki Beth LPN - 02/25/2025 3:57 PM EDT Per Lorri-- PICC line care Cefepime changed to zosyn Labs rev and discussed. Plts low at 89 and WBC 3.[address] Rodriguez office to get baseline platelet and WBC. If dropped significantly then stop zosyn and remove line. Repeat labs on Follow up in the [facility] w ID in 3 weeks Continue aggressive [...] understanding and is in agreement. Leny from [facility]'s office sent me a secure chat message stating Lorri gave orders to stop the zosyn and nursing to remove the picc line. She's going to fax the summary visit to [facility]. I also called Mary with nursing and Tim with [facility] and gave the above orders. * Telephone Encounter - Nikki Beth LPN - 02/25/2025 9:10 AM EDT February 24 labs reviewed, no changes Wbc low at 3.5, plt low at 89 No comparisons The results were attached to the [address] Mary Alice has an appt today with Lorri at [facility]. She's currently on Zosyn 3.375g iv q6 with a stop date of March 03. * Telephone Encounter - Yamile Hoover RN - 02/18/2025 5:06 PM EDT Mary from [facility] called [phone] re: SOC for tomorrow as patient will miss doses. I lmovm and provided my direct line for call back. * Telephone Encounter - Yamile Hoover RN - 02/18/2025 2:09 PM EDT HC: [facility] [phone] * Telephone Encounter - Yamile Hoover RN - 02/17/2025 1:35 PM EDTSummary: NEW COPAT-MED CHANGE DX: R LOWER LEG INFECTION TX: ZOSYN 3.375GM IV Q6 STOP: 14 DAYS 03-03-25 LABS: CBC/D ALT CREAT QMON FU: [facility] PICC and first dose scheduled for 02-18-25 at 1:00. LMOVM for Whit at [facility] for SOC . * Telephone Encounter - Lexie Gentile - 02/17/2025 11:14 AM EDT I called Mary Alice and she will call [facility] for scheduling. Lexie Gentile * Telephone Encounter - Lexie Gentile - 02/17/2025 11:09 AM EDT I talked to [facility] Whit and Eva is good with cost of Zosyn working on nursing. Lexie Gentile * Telephone Encounter - Lexie Gentile - 02/17/2025 10:45 AM EDT I called [facility] Whit back to see where things are standing and waiting for a call back. Lexie Gentile * Telephone Encounter - Lexie Gentile - 02/17/2025 10:36 AM EDT Jerri from the [facility] called to see how things are moving with the PICC placement for Mary Alice because she called the [facility] said she feels her leg is getting worse. . I told Jerri I would check with [facility] and let Mary Alice know. . * Telephone Encounter - Yamile Hoover, KAREN - 02/13/2025 11:14 AM EDT Per email RS recommended two other IV abx options. Whit at [facility] checking cost * Telephone Encounter - Yamile Hoover RN - 02/12/2025 4:37 PM EDT EM RS: Seen in [facility] yesterday. Cefepime 2gm iv q8 for Rt lower leg inf. Per [facility], patient cannot afford IV abx cost of $652.54/week (she doesn't have insurance that will cover home IV abx). What would you like to do? * Telephone Encounter - Yamile Hoover RN - 02/11/2025 5:01 PM EDTSummary: COPAT ACTION-FOR IDC USE ONLY RS-[facility] DX: R LOWER LEG INFECTION TX: CEFEPIME 2GMIV Q8 STOP: 14 DAYS LABS: CBC/D ALT CREAT QMON FU: [facility] 02-25-25 Intake for pharmacy and nursing faxed to [facility] for benefit review. Notify IR when ok for them to schedule picc placement and first dose. documented in this encounterSheltering Arms Hospital06-24-2025 [facility] 02-25-2025 History of Present illness [...] Repeat labs on Follow up in the [facility] w ID in 3 weeks Continue aggressive [...] SUBCUTANEOUS) Inject subcutaneously. 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 DME: [employer] , PH: [phone] SPECIAL NEEDS: Coordination of care Call to Dr. Rodriguez office, [facility] Emotional support N/A OR set-up N/A Visualizer N/A Incontinence needs N/A DISCHARGED in stable condition to: ambulatory with rollator PLAN/ORDERS: Return to the wound center to see Dr. Lorri ARAUJO (Infectious Disease) in [address] Blackmon discussed getting previous labwork from [place] Repeat bloodwork February Continue aggressive nutritional support [...] Center Leny Saenz RN/DUNG documented in this encounterSheltering Arms Hospital06-24-2025 [facility] 02-25-2025 Instructions* Patient Instructions* Leny Saenz RN - 02/25/2025 2:32 PM EDT WOUND CARE INSTRUCTIONS- Mary Alice Ga Wound location: Right Lower Lateral leg [facility] (IV therapy) Continue wound care [...] of infection to the Wound Center at [phone] or go to the Emergency Department: Fever or chills Increased drainage Green or yellow drainage Foul odor Increased pain Hardness around the wound Redness, warmth or swelling of the surrounding tissue Color change to the wound Any streaking coming from the wound When contacting the wound center at the ([phone]): Leave a message that includes your full [...] Dr. Blackmon discussed getting previous labwork from [place] Repeat bloodwork February Continue aggressive nutritional support for optimal wound healing STOP IV Zosyn [facility] of to remove PICC line Dr. Nayan Blackmon MD/jeremiah/dung documented in this encounterSheltering Arms Hospital06-24-2025 Telephone encounter Note * Telephone Encounter - Nikki Beth LPN - 02/25/2025 9:10 AM EDT February 24 labs reviewed, no changes Wbc low at 3.5, plt low at 89 No comparisons The results were attached to the [employer] Mary Alice has an appt today with Lorri at [facility]. She's currently on Zosyn 3.375g iv q6 with a stop date of March 03. [facility]06[facility] History of Present illness Narrative* Amanda Soto, PT - 02/24/2025 4:50 PM EDT Episode Visit Count: 8 Therapist That Will Accept/Oversee The Plan Of Care: Amanda Charles Start of Care Date: 01/06/25 Onset Date: 08/14/24 (second week of August) Plan of Care Certification Date: 01/06/25 Next Certification Due Date: 03/27/25 Patient Identified by Name and Date of : Yes [facility] PHYSICAL THERAPY WOUND [...] associated orders. TREATMENT: Conservative Sharp Debridement <20cm (03457): 5 mm curette used to selectively remove [...] removed from the wound bed Nonselective Debridement (38505): dressings removed. Cleansed the RIGHT LE with [...] Compression Therapy (Multilayer Venous Wound Compression System) (47098): deferred application thisdate due to wound center/ID follow up tomorrow. Post Treatment/Symptom(s): See above Billing: Noncontact Ultrasound Mist (68171): no charge (bundled) Selective Sharp Debridement <20cm (83604): 1 unit Nonselective debridement (11284): no charge (bundled) Session Start Time : 1541 Session Stop Time : 1650 Total Time: 69 minutes Amanda Soto, PT documented in this encounterSheltering Arms Hospital06-23-2025 [facility] 02-18-2025 Telephone encounter Note* Telephone Encounter - Yamile Hoover, KAREN - 02/18/2025 5:06 PM EDT Mary from [facility] called [phone] re: SOC for tomorrow as patient will miss doses. I lmovm and provided my direct line for call back. [facility]06-17[facility] Telephone encounter Note* Telephone Encounter - Yamile Hoover RN - 02/18/2025 2:09 PM EDT : [place] [phone] [facility]06-17-[facility]25 [facility]06-16-2025 [facility] 02-17-2025 History of Present illness [...] and Date of : Yes [facility] PHYSICAL THERAPY WOUND [...] associated orders. TREATMENT: Conservative Sharp Debridement <20cm (11602): 5 mm curette used to selectively remove [...] removed from the wound bed Nonselective Debridement (94768): dressings removed. Cleansed the RIGHT LE with [...] Compression Therapy (Multilayer Venous Wound Compression System) (26337): Skilled interventions: -Skilled knowledge of wound care [...] Treatment/Symptom(s): See above Billing: Noncontact Ultrasound Mist (25462): no charge (bundled) Selective Sharp Debridement <20cm (44970): 1 unit Nonselective debridement (89493): no charge (bundled) Multi-Layer Venous Wound Compression System (36178): 1 unit (untimed) Session Start Time : 1540 Session Stop Time : 1633 Total Time: 53 minutes Amanda Soto PT documented in this encounterSheltering Arms Hospital06-16-2025 Telephone encounter Note * Telephone Encounter - Yamile Hoover RN - 02/17/2025 1:35 PM EDTSummary: NEW COPAT-MED CHANGE DX: R LOWER LEG INFECTION TX: ZOSYN 3.375GM IV Q6 STOP: 14 DAYS 03-03-25 LABS: CBC/D ALT CREAT QMON FU: [facility] PICC and first dose scheduled for 02-18-25 at 1:00. LMOVM for Whit at [facility] for SOC . [facility]06-16[facility] Telephone encounter Note* Telephone Encounter - Lexie Gentile - 02/17/2025 11:14 AM EDT I called Mary Alice and she will call [facility] IR for scheduling. Lexie Gentile [facility]06-16-[facility] Telephone encounter Note* Telephone Encounter - Lexie Gentile - 02/17/2025 11:09 AM EDT I talked to [facility] Whit and Eva is good with cost of Zosyn working on nursing. Lexie Gentile [facility]06-16-20[facility] Telephone encounter Note* Telephone Encounter - Lexie Gentile - 02/17/2025 10:45 AM EDT I called delia Sherman back to see where things are standing and waiting for a call back. Lexie Gentile [facility]06-16-2025 Telephone encounter Note* Telephone Encounter - [...] chills, or feeling ill at this time. [facility]06-16-[facility] Miscellaneous Notes* Telephone Encounter - Ileana [...] ill at this time. documented in this encounterSheltering Arms Hospital06-16-2025 Telephone encounter Note * Telephone Encounter - Lexie Gentile - 02/17/2025 10:36 AM EDT Jerri from the [facility] called to see how things are moving with the PICC placement for Mary Alice because she called the [facility] said she feels her leg is getting worse. . I told Jerri I would check with I and let Mary Alice know. . [facility]06-12-[facility] Telephone encounter Note* Telephone Encounter - Yamile Hoover RN - 02/13/2025 11:14 AM EDT Per email RS recommended two other IV abx options. Whit at I checking cost [facility]06-11-2025 Telephone encounter Note* Telephone Encounter - Yamile Hoover RN - 02/12/2025 4:37 PM EDT EM RS: Seen in [facility] yesterday. Cefepime 2gm iv q8 for Rt lower leg inf. Per I, patient cannot afford IV abx cost of $652.54/week (she doesn't have insurance that will cover home IV abx). What would you like to do? [facility]06-10-[facility] Telephone encounter Note* Telephone Encounter - Yamile Hoover RN - 02/11/2025 5:01 PM EDTSummary: COPAT ACTION-FOR IDC USE ONLY [facility] DX: R LOWER LEG INFECTION TX: CEFEPIME 2GMIV Q8 STOP: 14 DAYS LABS: CBC/D ALT CREAT QMON FU: [facility] 02-25-25 Intake for pharmacy and nursing faxed to [facility] for benefit review. Notify IR when ok for them to schedule picc placement and first dose. [facility]06-10-2025 [facility]06-10-20[facility] History of Present illness Narrative* [...] SUBCUTANEOUS) Inject subcutaneously. Given by Infusion center [facility] Cholecalciferol, Vitamin D3, (VITAMIN D) 25 mcg [...] Therapy: denies Living Situation (ie... 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 weekly wraps from Amanda Soto DME: [employer] , PH: [phone] SPECIAL NEEDS: Coordination of care Amanda Soto PT Emotional support N/A OR set-up N/A Visualizer N/A Incontinence needs N/A DISCHARGED in stable [...] consult the [facility] documented in this encounterSheltering Arms Hospital06-10-2025 Instructions* Patient Instructions* Ayanna Staton RN [...] of infection to the Wound Center at [phone] or go to the Emergency Department: Fever or chills Increased drainage Green or yellow drainage Foul odor Increased pain Hardness around the wound Redness, warmth or swelling of the surrounding tissue Color change to the wound Any streaking coming from the wound When contacting the wound center at the ([phone]): Leave a message that includes your full [...] Dr. Nayan Blackmon MD/mjl/lt documented in this encounterSheltering Arms Hospital06-10-2025 [facility] History of Present illness Narrative* Amanda Soto, PT - 02/10/2025 11:40 AM EDT Episode Visit Count: 6 Therapist That Will Accept/Oversee The Plan Of Care: Amanda Soto Start of Care Date: 01/06/25 Onset Date: 08/14/24 (second week of August) Plan of Care Certification Date: 01/06/25 Next Certification Due Date: 03/27/25 Patient Identified by Name and Date of : Yes [facility] PHYSICAL THERAPY WOUND [...] associated orders. TREATMENT: Conservative Sharp Debridement <20cm (45334) and >20cm (03415): 5 mm curette used to selectively remove [...] removed from the wound bed Nonselective Debridement (91564): dressings removed. Cleansed the RIGHT LE with [...] Treatment/Symptom(s): See above Billing: Noncontact Ultrasound Mist (90209): no charge Selective Sharp Debridement <20cm (05819): 1 unit Selective Sharp Debridement >20cm (14043): 1 unit Nonselective debridement (49096): no charge Session Start Time : 1035 Session Stop Time : 1138 Total Time: 63 minutes Amanda Soto PT documented in this encounterSheltering Arms Hospital06-09-2025 [facility] 02-03-2025 History of Present illness [...] and Date of : Yes [facility] PHYSICAL THERAPY WOUND [...] associated orders. TREATMENT: Conservative Sharp Debridement <20cm (51595): 5 mm curette used to selectively remove [...] removed from the wound bed Nonselective Debridement (49096): dressings removed. Cleansed the RIGHT LE with [...] Compression Therapy (Multilayer Venous Wound Compression System) (78281): Skilled interventions: -Skilled knowledge of wound care [...] Treatment/Symptom(s): See above Billing: Noncontact Ultrasound Mist (76087): no charge (bundled) Selective Sharp Debridement <20cm (30339): 1 unit Nonselective debridement (08293): no charge (bundled) Multi-Layer Venous Wound Compression System (42038): 1 unit (untimed) Session Start Time : 154 Session Stop Time : 1644 Total Time: 60 minutes Amanda Soto PT documented in this encounterSheltering Arms Hospital06-02-2025 [facility] 01-28-2025 [facility]05-27-2025 History of Present illness Narrative* Amanda Soto, PT - 01/28/2025 11:24 AM EDT Episode Visit Count: 4 Therapist That Will Accept/Oversee The Plan Of Care: Amanda Stoo Start of Care Date: 01/06/25 Onset Date: 08/14/24 (second week of August) Plan of Care Certification Date: 01/06/25 Next Certification Due Date: 03/27/25 Patient Identified by Name and Date of : Yes [facility] PHYSICAL THERAPY WOUND [...] off the bed. Reports vascular testing in [place] was ok. Also having issues with her [...] associated orders. TREATMENT: Conservative Sharp Debridement <20cm (66164): 5 mm curette used to selectively remove [...] removed from the wound bed Nonselective Debridement (57207): dressings removed. RIGHT LE blotted dry and [...] Compression Therapy (Multilayer Venous Wound Compression System) (18226): Skilled interventions: -Skilled knowledge of wound care [...] Treatment/Symptom(s): See above Billing: Noncontact Ultrasound Mist (59804): no charge (bundled) Selective Sharp Debridement <20cm (11570): 1 unit Nonselective debridement (66437): no charge (bundled) Multi-Layer Venous Wound Compression System (85913): 1 unit (untimed) Session Start Time : 1033 Session Stop Time : 1138 Total Time: 65 minutes Amanda Soto PT documented in this encounterSheltering Arms Hospital05-21-2025 Evaluation note* Diagnosis Onset Date Resolution Status Admit Date Back pain acute January 22, 2025 11:42am Compression fracture of lumb ar vertebra acute January 22, 2025 1 1:42am Breast cancer acute January 23, 2 025 12:32pm [facility] Work Phone: 1(810) 768-405505-21-2025 Evaluation note* Diagnosis Onset Date Resolution Status Admit Date Back pain acute January 22, 2025 11:42am Compression fracture of lumb ar vertebra acute January 22, 2025 1 1:42am Breast cancer acute January 23 12:32pm Chronic pain chronic April 29, 2025 12:39pm Cirrhosis chronic April 29 12:39pm Dyspnea chronic April 29 12:39pm [facility] Work Phone: 1(966) 183-170905-21-2025 Evaluation note* Diagnosis Onset Date Resolution Status [...] 8:04am Osteoporosis chronic May 212024 8:04am [facility] Work Phone: 1(768) 493-608105-19-2025 [facility]05-12-2025 History of Present illness Narrative* Amanda Soto, PT - 01/13/2025 10:35 AM EDT Episode Visit Count: 2 Therapist That Will Accept/Oversee The Plan Of Care: Amanda Soto Start of Care Date: 01/06/25 Onset Date: 08/14/24 (second week of August) Plan of Care Certification Date: 01/06/25 Next Certification Due Date: 03/27/25 Patient Identified by Name and Date of : Yes [facility] PHYSICAL THERAPY WOUND [...] associated orders. TREATMENT: Conservative Sharp Debridement <20cm (44883) & >20cm (75572): 5 mm curette used to selectively remove [...] removed from the wound bed Nonselective Debridement (56282): dressings removed. RIGHT LE cleansed with warm [...] Compression Therapy (Multilayer Venous Wound Compression System) (26274): Skilled interventions: -Skilled knowledge of wound care [...] Treatment/Symptom(s): See above Billing: Noncontact Ultrasound Mist (79519): no charge (bundled) Selective Sharp Debridement <20cm (61756): 1 unit Selective Sharp Debridement >20cm (98084): 1 unit Nonselective debridement (42283): no charge (bundled) Multi-Layer Venous Wound Compression System (75321): 1 unit (untimed) Session Start Time : 940 Session Stop Time : 1033 Total Time: 53 minutes Amanda Soto PT documented in this encounterSheltering Arms Hospital05-12-2025 [facility] 01-06-2025 History of Present illness [...] and Date of : Yes [facility] PHYSICAL THERAPY WOUND [...] of Visits Planned: 24 Planned Treatment Interventions: Self-residential management (53377), Patient/Family/Caregiver Education, Wound Selective debridement <20cm, Selective [...] patient/family. SUBJECTIVE: Pt states after she left [place] in the late fall, her R leg was doing really well. She was compliant with her compression dressing. But, she had issues when her spouse went back to the hospital, was not doing well with her support stockings as she could not get them off by herself. The wound re-opened. Tried care in [place], but the wound worsened. Back in [place] until next fall. Having ravi hard time [...] nearly closed prior to patient's return to [place] Assessment:: + risk due to orthopedic [...] States/Identifies TREATMENT: Evaluation Conservative Sharp Debridement <20cm (86594) & >20cm (52156): 5 mm curette used to selectively remove [...] removed from the wound bed Nonselective Debridement (62419): home dressings removed. RIGHT LE cleansed with [...] Compression Therapy (Multilayer Venous Wound Compression System) (71094): Skilled interventions: -Skilled knowledge of wound care [...] See abov Billing: Evaluation - Moderate Complexity (35818) Noncontact Ultrasound Mist (24322): no charge (bundled) Selective Sharp Debridement <20cm (98648): 1 unit Selective Sharp Debridement >20cm (52162): 1 unit Nonselective debridement (35401): no charge (bundled) Multi-Layer Venous Wound Compression System (18045): 1 unit (untimed) Session Start Time : 938 Session Stop Time : 1045 Total time: 67 minutes Amanda Soto PT documented in this [facility]10-23-20[facility] History of Present illness Narrative* [...] and Date of : Yes [facility] PHYSICAL THERAPY WOUND TREATMENT AND DISCONTINUANCE OF CARE PLAN OF CARE UPDATE: Patients RIGHT LE wounds are nearly resolved. The medial wounds are closed and stable. The lateral wound is 99% closed. Great overall progress has been made. Care is being discontinued as patient is leaving to return to [place] this weekend. Patient has been educated on self care principles once the current compression dressing is removed. Patient to seek additional wound care services as needed after she gets to [place]. Patient is pleased with overall improvement and [...] tenderness is noted. Patient voices understanding of assistant terminal manager edema management via compression garments, leg elevation,and exercise. MOSTLY MET: pt voices understanding and intent to comply. PLAN: discontinue PT due to patient relocation to [place] SUBJECTIVE: Patient has much back pain. Is leaving for [place] on Monday. Is seeing a medical front desk specialist the [place] she gets there for potential [...] associated orders. TREATMENT: Conservative Sharp Debridement <20cm (14659): 3 mm curette used to remove slough [...] prn -<20cm2 nonviable tissue removed Nonselective Debridement (21688): The dressing was removed. The RIGHT LE [...] Compression Therapy (Multilayer Venous Wound Compression System) (39855): Skilled interventions: -Skilled knowledge of wound care [...] home per herusual. Self Care/ Home Management (12191): education on removal of the compression dressing [...] to follow up with wound care in [place] pending wound status. Skilled Intervention Skilled judgment in the selection of proper self care/home management based on clinical presentation, deficits, and needs. Educated the patient regarding recommendations and provided verbal and feedback instruction to facilitate compliance. Reviewed patient specific diagnosis in relation to activities of daily living/home management. Post Treatment/Symptom(s): See above Adverse event? No Billing: Noncontact Ultrasound Mist (97377): no charge (bundled) Selective Sharp Debridement <20cm (91942): 1 unit Nonselective debridement (99922): no charge (bundled) Self care/ Home Management (09743): 1:1 time: 1 unit: 8-22 mins Multi-Layer Venous Wound Compression System (36084): 1 unit (untimed) Session Start Time : 1434 Session Stop Time : 1530 Total Time: 56 minutes Amanda Soto PT documented in this encounterSheltering [facility] Hospital10-15-2024 History of Present illness Narrative* Amanda Soto, PT - 06/18/2024 9:25 AM EDT Episode Visit Count: 16 Medicare visits current year: 16 Therapist That Will Accept/Oversee The Plan Of Care: Amanda Soto Start of Care Date: 01/24/24 Onset Date: 01/23/21 Plan of Care Certification Date: 05/28/24 Next Certification Due Date: 08/27/24 Patient Identified by Name and Date of : Yes [facility] PHYSICAL THERAPY WOUND TREATMENT NOTE ASSESSMENT: patient's RIGHT LE is progressing nicely. The medial wound cluster remains closed and is stable. The lateral wound is reducing in size. PLAN FOR NEXT VISIT: recheck next week. Continue with active wound care until patient departs for [place] SUBJECTIVE: Patient having much more issues with her back than her leg. States she still has some tenderness/soreness/twinges of pain, but her back is bothering her more than anything else. Still planning on leaving for [place] on Jun 29. Pain Tool: Verbal (Numeric [...] associated orders. TREATMENT: Conservative Sharp Debridement <20cm (59128): 3 mm curette used to remove slough [...] prn -<20cm2 nonviable tissue removed Nonselective Debridement (25931): The dressing was removed. The RIGHT LE [...] Compression Therapy (Multilayer Venous Wound Compression System) (85952): Skilled interventions: -Skilled knowledge of wound care [...] Adverse event? No Billing: Noncontact Ultrasound Mist (85709): no charge (bundled) Selective Sharp Debridement <20cm (39598): 1 unit Nonselective debridement (82933): no charge (bundled) Multi-Layer Venous Wound Compression System (59577): 1 unit (untimed) Session Start Time : 836 Session Stop Time : 923 Total Time: 47 minutes Amanda Soto PT documented in this encounterSheltering [facility] Hospital10-15-2024 [facility] 06-12-2024 History of Present illness [...] and Date of : Yes [facility] PHYSICAL THERAPY WOUND TREATMENT NOTE ASSESSMENT: patient's RIGHT LE with much overall improvement. Her medial wound cluster is now closed, but remains fragile. The lateral wound is much smaller but remains painful Continued wound care imperative. Patient to be relocating to [place] soon and could benefit from as much [...] associated orders. TREATMENT: Conservative Sharp Debridement <20cm (21165): 3 mm curette used to remove slough [...] prn -<20cm2 nonviable tissue removed Nonselective Debridement (27114): The dressing was removed. The RIGHT LE [...] Compression Therapy (Multilayer Venous Wound Compression System) (88393): Skilled interventions: -Skilled knowledge of wound care [...] Adverse event? No Billing: Noncontact Ultrasound Mist (50522): no charge (bundled) Selective Sharp Debridement <20cm (86096): 1 unit Nonselective debridement (57733): no charge (bundled) Multi-Layer Venous Wound Compression System (96568): 1 unit (untimed) Session Start Time : 1228 Session Stop Time : 1328 Total Time: 60 minutes Amanda Soto PT documented in this encounterSheltering [facility] Hospital10-09-2024 [facility] 06-12-2024 NoteHNO ID: [id number] Author: MONSE MERLOS PA-C Service: ? Author Type: Physician Patient Transport Officer Type: Progress Notes Filed: 06/17/2024 19:38 Note Text: Monse Merlos PA-C [facility] [address] [place] [address] 06/12/2024 ASSESSMENT AND PLAN: Assessment : Encounter [...] She had some plain radiographs done at [facility], but did not bring those here for review today. 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 This includes bznb-lm-[id number] time, review of chart records regarding conservative care history, spine-pertinent imaging, and communication/care coordination with referring provider, problem-specific history-taking and counseling/education regarding treatment options. cc: Marisela Mccarty [address] [address] Results of consultation to be transmitted via electronic medical record for those providers who practice within [facility] or with access to [employer] [employer] via [facility], or via letter. ######################################################################## [...] 1 mg tablet pa (more content not included)...[facility]10-09-2024 History of Present illness Narrative* Monse Merlos PA-C - 06/12/2024 10:14 AM EDT Images from the original note were not included. Monse Merlos PA-C [facility] [address] [address] 06/12/2024 ASSESSMENT AND PLAN: Assessment : Encounter [...] She had some plain radiographs done at [facility], but did not bring those here for review today. 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 This includes [id number] time, review of chart records regarding conservative care history, spine- pertinent imaging, and communication/care coordination with referring provider, problem-specific history-taking and counseling/education regarding treatment options. cc: Marisela cMcarty [address] [address] Results of consultation to be transmitted via electronic medical record for those providers who practice within [facility] or with access to [employer] via [facility], or via letter. ######################################################################## [...] STUDIES: See discussion above documented in this encounterSheltering [facility] Hospital10-01-2024 History of Present illness Narrative* Amanda [...] and Date of : [place] [facility] PHYSICAL THERAPY WOUND [...] iswarranted. Patient to be relocating back to [place], tentatively at the end of June. Continued [...] associated orders. TREATMENT: Conservative Sharp Debridement <20cm (61895): 3 mm curette and a scalpel for [...] prn -<20cm2 nonviable tissue removed Nonselective Debridement (04458): The dressing was removed. The RIGHT LE [...] Compression Therapy (Multilayer Venous Wound Compression System) (22592): Skilled interventions: -Skilled knowledge of wound care [...] Adverse event? No Billing: Noncontact Ultrasound Mist (50858): no charge (bundled) Selective Sharp Debridement <20cm (86970): 1 unit Nonselective debridement (64922): no charge (bundled) Multi-Layer Venous Wound Compression System (20924): 1 unit (untimed) Session Start Time : 935 Session Stop Time : 1030 Total Time: 55 minutes Amanda Soto PT documented in this encounterSheltering Arms Hospital2024 History of Present illness Narrative* Amanda [...] and Date of : Yes [facility] PHYSICAL THERAPY WOUND [...] pain: not met Patient voices understanding of assistant terminal manager edema management via compression garments, leg elevation,and exercise.:addressed but reinforcement to continue with progressive wound healing. PLAN: Follow up for one visit(s) per week for twelve weeks for, Selective debridement <20cm, Nonselective debridement, Noncontact Ultrasound Mist, Compression Therapy (dressing), Patient/ Caregiver Education, and Self Care/ Home Management *patient with plans to return to [place] at the end of the month if [...] associated orders. TREATMENT: Conservative Sharp Debridement <20cm (43729): 3 mm curette used to selectively remove [...] prn -<20cm2 nonviable tissue removed Nonselective Debridement (76518): The dressing was removed. The RIGHT LE [...] Compression Therapy (Multilayer Venous Wound Compression System) (14705): Skilled interventions: -Skilled knowledge of wound care [...] Adverse event? No Billing: Noncontact Ultrasound Mist (90688): no charge (bundled) Selective Sharp Debridement <20cm (46404): 1 unit Nonselective debridement (04502): no charge (bundled) Multi-Layer Venous Wound Compression System (56272): 1 unit (untimed) Session Start Time : 947 Session Stop Time : 1042 Total Time: 55 minutes Amanda Soto PT documented in this encounterSheltering Arms Hospital09-17-2024 History of Present illness Narrative* Amanda [...] and Date of : Yes [facility] PHYSICAL THERAPY WOUND [...] is warranted. Patient with pending return to [place] in late June. PLAN FOR NEXT VISIT: [...] associated orders. TREATMENT: Conservative Sharp Debridement <20cm (21382): 3 mm curette used to selectively remove [...] prn -<20cm2 nonviable tissue removed Nonselective Debridement (01880): The dressing was removed. The RIGHT LE [...] Compression Therapy (Multilayer Venous Wound Compression System) (61126): Skilled interventions: -Skilled knowledge of wound care [...] Adverse event? No Billing: Noncontact Ultrasound Mist (43729): no charge (bundled) Selective Sharp Debridement <20cm (23349): 1 unit Nonselective debridement (98806): no charge (bundled) Multi-Layer Venous Wound Compression System (22121): 1 unit (untimed) Session Start Time : 943 Session Stop Time : 1033 Total Time: 50 minutes Amanda Soto PT documented in this encounterSheltering Arms Hospital09-10-2024 History of Present illness Narrative* Amanda [...] and Date of : Yes [facility] PHYSICAL THERAPY WOUND [...] patient and she was [place] Nurses from the family medicine department assisted [...] associated orders. TREATMENT: Conservative Sharp Debridement <20cm (14653): 3 mm curette used to selectively remove [...] prn -<20cm2 nonviable tissue removed Nonselective Debridement (67648): The dressing was removed. The RIGHT LE [...] Compression Therapy (Multilayer Venous Wound Compression System) (58104): Skilled interventions: -Skilled knowledge of wound care [...] comply. *post care, patient transported to the [facility] via w/c and nursing from the [address] [place] [address] transported the pt to the ER per pt request due to her back and hip pain. Post Treatment/Symptom(s): See above Adverse event? No Billing: Noncontact Ultrasound Mist (19507): no charge (bundled) Selective Sharp Debridement <20cm (62098): 1 unit Nonselective debridement (83974): no charge (bundled) Multi-Layer Venous Wound Compression System (01297): 1 unit (untimed) Session Start Time : 937 Session Stop Time : 1024 Total Time: 47 minutes Amanda Soto PT documented in this encounterSheltering Arms Hospital09-06-2024 History of Present illness Narrative* Amanda [...] and Date of : Yes [facility] PHYSICAL THERAPY WOUND [...] associated orders. TREATMENT: Conservative Sharp Debridement <20cm (47972): 3 mm curette used to selectively remove [...] prn -<20cm2 nonviable tissue removed Nonselective Debridement (81138): The dressing was removed. The RIGHT LE [...] Compression Therapy (Multilayer Venous Wound Compression System) (54702): Skilled interventions: -Skilled knowledge of wound care [...] Adverse event? No Billing: Noncontact Ultrasound Mist (60374): no charge (bundled) Selective Sharp Debridement <20cm (29931): 1 unit Nonselective debridement (59717): no charge (bundled) Multi-Layer Venous Wound Compression System (69303): 1 unit (untimed) Session Start Time : 1240 Session Stop Time : 1328 Total Time: 48 minutes Amanda Soto PT documented in this encounterSheltering Arms Hospital09-05-2024 Telephone encounter Note * Telephone Encounter - Lisa Shirley - 05/09/2024 3:13 PM EDT Spoke with patient to offer appointment with Amanda tomorrow at 12 (noon) for wound therapy. Patientasked to call back because she was not home and needed to check her schedule first. Patient said she would call back within the next half hour [facility]09-05-[facility] Miscellaneous Notes* Telephone Encounter - Lisa hSirley - 05/09/2024 3:13 PM EDT Spoke with [...] available for wound therapy. documented in this encounterSheltering Arms Hospital09-05-2024 Telephone encounter Note * Telephone Encounter - Lisa Shirley - 05/09/2024 2:02 PM EDT Patient is currently scheduled for Amanda's first available on 05/14/2024. [facility]09-04-[facility] Telephone encounter Note* Telephone Encounter - Skylar Herrera - 05/08/2024 7:26 AM EDT Lvm for patient to call back and schedule appointment due to provider being out sick. May be scheduled for Amanda's first available for wound therapy. [facility]08-[facility] History of Present illness Narrative* Amanda [...] and Date of : Yes [facility] PHYSICAL THERAPY WOUND [...] when she plans to relocate back to [place]. PLAN FOR NEXT VISIT: continue with acitve [...] associated orders. TREATMENT: Conservative Sharp Debridement <20cm (96213): 3 mm curette used to selectively remove [...] prn -<20cm2 nonviable tissue removed Nonselective Debridement (98766): The dressing was removed. The RIGHT LE [...] Compression Therapy (Multilayer Venous Wound Compression System) (32782): Skilled interventions: -Skilled knowledge of wound care [...] Adverse event? No Billing: Noncontact Ultrasound Mist (34340): no charge (bundled) Selective Sharp Debridement <20cm (29411): 1 unit Nonselective debridement (27478): no charge (bundled) Multi-Layer Venous Wound Compression System (14491): 1 unit (untimed) Session Start Time : 1434 Session Stop Time : 1533 Total Time: 59 minutes Amanda Soto PT documented in this encounterSheltering Arms Hospital08-27-2024 NoteHNO ID: [id number] Author: LISETH ALANIS PT Service: ? Author [...] and treatment included: Therapeutic exercise, Neuromuscular re-education, Self-residential management, and Gait training. Goals for Episode [...] to reflect decreased fall risk. -- MET [place] in home exercise program including cardiovascular exercise. -- MET - plans to go to the [facility] where her DTR is a staff trainer Complete 6 MWT x1545 ft or [...] continued completion of HEP and progressing with staff trainer 3: discussed posture 4: provided HEP hand outs from previous visits per pt. request Skilled Intervention: Skilled judgment in the selection of proper modification for activity of daily living/home management based on clinical presentation, deficits, and needs. Provided written i (more content not included)...[facility] 04-30-2024 History of Present illness Narrative* Liseth [...] and treatment included: Therapeutic exercise, Neuromuscular re-education, Self-residential management, and Gait training. Goals for Episode [...] to reflect decreased fall risk. -- MET [place] in home exercise program including cardiovascular exercise. -- MET - plans to go to the [facility] where her DTR is a staff trainer Complete 6 MWT x1545 ft or [...] continued completion of HEP and progressing with staff trainer 3: discussed posture 4: provided HEP [...] 854 Liseth Alanis PT documented in this encounterSheltering Arms Hospital08-21-2024 History of Present illness Narrative* Amanda Soto, [...] and Date of : Yes [facility] PHYSICAL THERAPY WOUND [...] pain: not met Patient voices understanding of assistant terminal manager edema management via compression garments, leg elevation,and [...] closures. States her leg has been ok. wharf tender head laterally. Patient rating of condition: better Pain [...] associated orders. TREATMENT: Conservative Sharp Debridement <20cm (14708): 3 mm curette used to selectively remove [...] prn -<20cm2 nonviable tissue removed Nonselective Debridement (70733): The dressing was removed. The RIGHT LE [...] Compression Therapy (Multilayer Venous Wound Compression System) (41326): Skilled interventions: -Skilled knowledge of wound care [...] rendered are medically necessary. Noncontact Ultrasound Mist (73511): no charge (bundled) Selective Sharp Debridement <20cm (02890): 1 unit Nonselective debridement (41173): no charge (bundled) Multi-Layer Venous Wound Compression System (73375): 1 unit (untimed) Session Start Time : 951 Session Stop Time : 1049 Total Time: 58 minutes Amanda Soto PT documented in this encounterSheltering Arms Hospital08-20-2024 NoteHNO ID: [id number] Author: LISETH ALANIS PT Service: ? Author [...] Session Stop Time : 1458 Liseth Alanis, [facility]08-20-2024 History of Present illness Narrative* Liseth Alanis, [...] 1458 Liseth Alanis PT documented in this encounterSheltering Arms Hospital08-20-2024 NoteHNO ID: [id number] Author: GT YIN, DO Service: ? Author Type: Physician Type: Progress Notes Filed: 05/23/2024 16:21 Note Text: [facility] [place] DEPARTMENT OF VASCULAR SURGERY OUTPATIENT VISIT DATE [...] vein at the knee crease. 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 [facility] [place] DEPARTMENT OF VASCULAR SURGERY OUTPATIENT VISIT DATE April 23, 2024 OUTPATIENT VISIT TYPE ESTABLISHED SERVICE DATE: 04/23/2024 SERVICE TIME: 11:05 AM PRIMARY CARE PHYSICIAN: Khanh Rodriguez MD HISTORY OF PRESENT ILLNESS: Ms. aG is a 73 year old female who [...] vein at the knee crease. 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 and another [...] 2024 TIME: 11:05 AM documented in this encounterSheltering Arms Hospital08-13-2024 History of Present illness Narrative* Amanda Soto, PT - 04/16/2024 3:45 PM EDT Episode Visit Count: 7 Medicare visits current year: 7 Therapist That Will Accept/Oversee The Plan Of Care: Liseth Alanis Start of Care Date: 01/24/24 Onset Date: 01/23/21 Plan of Care Certification Date: 03/13/24 Next Certification Due Date: 05/08/24 Patient Identified by Name and Date of : Yes [facility] PHYSICAL THERAPY WOUND [...] associated orders. TREATMENT: Conservative Sharp Debridement <20cm (93608): 3 mm curette used to selectively remove [...] prn -<20cm2 nonviable tissue removed Nonselective Debridement (83863): The dressing was removed. The RIGHT LE [...] Compression Therapy (Multilayer Venous Wound Compression System) (11427): Skilled interventions: -Skilled knowledge of wound care [...] Adverse event? No Billing: Noncontact Ultrasound Mist (34426): no charge (bundled) Selective Sharp Debridement <20cm (15561): 1 unit Nonselective debridement (23749): no charge (bundled) Multi-Layer Venous Wound Compression System (73654): 1 unit (untimed) Session Start Time : 1441 Session Stop Time : 1545 Total Time: 64 minutes Amanda Soto PT documented in this encounterSheltering Arms Hospital08-13-2024 History of Present illness Narrative* Liseth Alanis, PT - 04/16/2024 11:01 AM EDT Program_ID:[id number] Access Code: [email or web address] URL: [email or web address] Date: 04-16-2024 Prepared By: Liseth Alanis Program [...] correct R list 4x10 4: *Access Code: [email or web address] URL: [email or web address] Date: 04/16/2024 Prepared by: Liseth O\'Carlos Exercises [...] 1110 Liseth Alanis PT documented in this encounterSheltering Arms Hospital08-13-2024 NoteHNO ID: [id number] Author: LISETH ALANIS PT Service: ? Author [...] correct R list 4x10 4: *Access Code: [email or web address] URL: [email or web address] Date: 04/16/2024 Prepared by: Liseth Alanis Exercises [...] Session Stop Time : 1110 Liseth Alanis, [facility]08-07-2024 History of Present illness Narrative* Amanda Soto, PT - 04/10/2024 12:58 PM EDT Episode Visit Count: 6 Medicare visits current year: 6 Therapist That Will Accept/Oversee The Plan Of Care: Liseth Alanis Start of Care Date: 01/24/24 Onset Date: 01/23/21 Plan of Care Certification Date: 03/13/24 Next Certification Due Date: 05/08/24 Patient Identified by Name and Date of : Yes [facility] PHYSICAL THERAPY WOUND [...] associated orders. TREATMENT: Conservative Sharp Debridement <20cm (89127): 3 mm curette used to selectively remove [...] prn -<20cm2 nonviable tissue removed Nonselective Debridement (69361): The dressing was removed. The RIGHT LE [...] Compression Therapy (Multilayer Venous Wound Compression System) (89748): Skilled interventions: -Skilled knowledge of wound care [...] Adverse event? No Billing: Noncontact Ultrasound Mist (68341): no charge Selective Sharp Debridement <20cm (37294): 1 unit Nonselective debridement (34556): no charge Multi-Layer Venous Wound Compression System (54049): 1 unit (untimed) Session Start Time : 1149 Session Stop Time : 1253 Total Time: 64 minutes Amanda Soto PT documented in this encounterShel[facility]08-[facility] History of Present illness Narrative* Amanda Soto PT - 04/04/2024 3:30 PM EDT Episode Visit Count: 5 Medicare visits current year: 5 Therapist That Will Accept/Oversee The Plan Of Care: Liseth Alanis Start of Care Date: 01/24/24 Onset Date: 01/23/21 Plan of Care Certification Date: 03/13/24 Next Certification Due Date: 05/08/24 Patient Identified by Name and Date of : Yes [facility] PHYSICAL THERAPY WOUND [...] associated orders. TREATMENT: Conservative Sharp Debridement <20cm (30232): 3 mm curette used to selectively remove [...] prn -<20cm2 nonviable tissue removed Nonselective Debridement (61365): The dressing was removed. The RIGHT LE [...] Compression Therapy (Multilayer Venous Wound Compression System) (35859): Skilled interventions: -Skilled knowledge of wound care [...] Adverse event? No Billing: Noncontact Ultrasound Mist (19934): no charge Selective Sharp Debridement <20cm (18349): 1 unit Nonselective debridement (20546): no charge Multi-Layer Venous Wound Compression System (28525): 1 unit (untimed) Session Start Time : 1435 Session Stop Time : 1530 Total Time: 55 minutes Amanda Soto PT documented in this encounterSheltering [facility]07-30-2024 NoteHNO ID: [id number] Author: MARISELA MCCARTY MD Service: ? Author Type: Physician Type: Progress Notes Filed: 04/02/2024 16:29 Note Text: Orthopaedic Office Note: April 02, 2024 4:24 PM Mary Alice Ga 73 year old History: Mary Alice is here for evaluation of her left hip. She has a known history of substantial lumbar scoliosis, likely degenerative She had a femoral neck fracture 3 years ago in [place] and was treated with a uncemented hemiarthroplasty [...] which included preparing to see the patient, abaw-hv-deif patient care, completing clinical documentation, obtaining and/or reviewing separately obtained history, performing a medically appropriate examination, counseling and educating the patient/family/caregiver, ordering medications, tests, or procedures, communicating with other HCPs (not separately reported), independently interpreting results (not separately reported), communicating results to the patient/family/caregiver, and care coordination (not separately reported). Marisela Mccarty MD [facility] History of Present illness Narrative* Marisela Mccarty MD - 04/02/2024 1:49 PM EDT Orthopaedic Office Note: April 02, 2024 4:24 PM Mary Alice Ga 73 year old History: Mary Alice is here for evaluation of her left hip. She has a known history of substantial lumbar scoliosis, likely degenerative She had a femoral neck fracture 3 years ago in [place] and was treated with a uncemented hemiarthroplasty [...] which included preparing to see the patient, vupp-ao-aoec patient care, completing clinical documentation, obtaining and/or reviewing separately obtained history, performing a medically appropriate examination, counseling and educating the patient/family/caregiver, ordering medications, tests, or procedures, communicating withother HCPs (not separately reported), independently interpreting results (not separately reported),communicating results to the patient/family/caregiver, and care coordination (not separately reported). 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 Bearing PERIPHERAL IV DATA: Not applicable SIGNED BY: Juhi Valles April 02, 2024 1:02 PM documented in this encounterSheltering Arms Hospital07-29-2024 NoteHNO ID: [id number] Author: LISETH ALANIS, PT Service: ? Author [...] Session Stop Time : 1656 Liseth Alanis, [facility]07-29-2024 History of Present illness Narrative* Liseth Alanis, [...] 1655 Liseth Alanis, PT documented in this encounterSheltering Arms Hospital07-23-2024 History of Present illness Narrative* Amanda Soto, [...] and Date of : Yes [facility] PHYSICAL THERAPY WOUND [...] pain: not met Patient voices understanding of [place] [facility] edema management via compression garments, leg elevation,and [...] back issues) TREATMENT: Conservative Sharp Debridement <20cm (63789): 3 mm curette used to selectively remove [...] prn -<20cm2 nonviable tissue removed Nonselective Debridement (85503): The compression dressing was removed. RIGHT LE [...] Compression Therapy (Multilayer Venous Wound Compression System) (25916): Skilled interventions: -Skilled knowledge of wound care [...] Adverse event? No Billing: Noncontact Ultrasound Mist (00299): no charge Selective Sharp Debridement <20cm (30770): 1 unit Nonselective debridement (34021): no charge Multi-Layer Venous Wound Compression System (73188): 1 unit (untimed) Session Start Time : 1433 Session Stop Time : 1540 Total Time: 67 minutes Amanda Soto PT documented in this encounterSheltering Arms Hospital07-23-2024 History of Present illness Narrative* Liseth Alanis, PT - 03/26/2024 11:46 AM EDT Program_ID:[id number] Access Code: [email or web address] URL: [email or web address] Date: 03-26-2024 Prepared By: Liseth Alanis Program [...] 1155 Liseth Alanis PT documented in this encounterSheltering Arms Hospital07-23-2024 NoteHNO ID: [id number] Author: LISETH ALANIS PT Service: ? Author [...] Session Stop Time : 1155 Liseth Alanis, [facility]07-17-2024 History of Present illness Narrative* Liseth Alanis, [...] 1240 Liseth Alanis PT documented in this encounterSheltering Arms Hospital07-17-2024 NoteHNO ID: [id number] Author: LISETH ALANIS PT Service: ? Author [...] Session Stop Time : 1240 Liseth Alanis, [facility]07-16-2024 History of Present illness Narrative* Amanda Soto, PT - 03/19/2024 9:59 AM EDT Episode Visit Count: 3 Medicare visits current year: 3 WOUND Therapist That Will Accept/Oversee The Plan Of Care: Liseth Alanis Start of Care Date: 01/24/24 Onset Date: 01/23/21 Plan of Care Certification Date: 03/13/24 Next Certification Due Date: 05/08/24 Patient Identified by Name and Date of : Yes [facility] PHYSICAL THERAPY WOUND [...] associated orders. TREATMENT: Conservative Sharp Debridement <20cm (65725): 3 mm curette used to selectively remove [...] prn -<20cm2 nonviable tissue removed Nonselective Debridement (35928): The compression dressing was removed. RIGHT LE [...] Compression Therapy (Multilayer Venous Wound Compression System) (23958): Skilled interventions: -Skilled knowledge of wound care [...] Adverse event? No Billing: Noncontact Ultrasound Mist (38612): no charge Selective Sharp Debridement <20cm (75285): 1 unit Nonselective debridement (32515): no charge Multi-Layer Venous Wound Compression System (09271): 1 unit (untimed) Session Start Time : 837 Session Stop Time : 940 Total Time: 63 minutes Amanda Soto PT documented in this encounterSheltering Arms Hospital07-10-2024 NoteHNO ID: [id number] Author: LISETH ALANIS PT Service: ? Author [...] to reflect decreased fall risk. -- PROGRESSING [place] in home exercise program including cardiovascular exercise. [...] Patient to be seen for Gait Training (83076), Self-residential management (12425), Therapeutic activities (85306), Manual therapy (51718), Neuromuscular re-education (82725), Therapeutic exercise (48540) PLAN FOR NEXT VISIT: work on step [...] last visit. She is seeing PT in [place] for her wounds. She is having the [...] Patient education as noted. (more content not included)...[facility]07-10-[facility] History of Present illness Narrative* JeremyLupeCarlosLiseth herrera, [...] to reflect decreased fall risk. -- PROGRESSING [place] in home exercise program including cardiovascular exercise. [...] Patient to be seen for Gait Training (57869), Self-residential management (84681), Therapeutic activities (41122), Manual therapy (98759), Neuromuscular re- education (55072), Therapeutic exercise (38733) PLAN FOR NEXT VISIT: work on step [...] last visit. She is seeing PT in [facility]. She is having the most difficulty with [...] 1325 Liseth Alanis PT documented in this encounterSheltering Arms Hospital07-09-2024 History of Present illness Narrative* Amanda Soto, [...] and Date of : Yes [facility] PHYSICAL THERAPY WOUND [...] associated orders. TREATMENT: Conservative Sharp Debridement <20cm (00683): 3 mm curette used to selectively remove [...] prn -<20cm2 nonviable tissue removed Nonselective Debridement (15174): home dressings removed. RIGHT LE cleansed with [...] Compression Therapy (Multilayer Venous Wound Compression System) (01761): Skilled interventions: -Skilled knowledge of wound care [...] Adverse event? No Billing: Noncontact Ultrasound Mist (16256): no charge Selective Sharp Debridement <20cm (63689): 1 unit Nonselective debridement (65662): no charge Multi-Layer Venous Wound Compression System (49650): 1 unit (untimed) Session Start Time : 1153 Session Stop Time : 1255 Total Time: 62 minutes Amanda Soto PT documented in this encounterSheltering Arms Hospital06-27-2024 History of Present illness Narrative* Amanda [...] and Date of : Yes [facility] PHYSICAL THERAPY WOUND [...] drainage Eliminate pain Patient voices understanding of [place] [facility] edema management via compression garments, leg elevation,and exercise. Planned Interventions, Frequency, and Duration: Current Frequency: 1x/week (WOUND CARE) Duration: (6 months: WOUND CARE) Total Number of Visits Planned: 24 (WOUND CARE) Planned Treatment Interventions: Self-residential management (13290), Patient/Family/Caregiver Education, Wound Selective debridement <20cm, Selective [...] Limits Prior Wound Care: Other: See Comment ([facility] center for a Mohs procedureof the upper lower leg and lower leg wounds. Ablation in [facility]. Dr Yin in [place].) Patient Goals: get the wounds to close [...] Education TREATMENT: Evaluation Conservative Sharp Debridement <20cm (13567): 3 mm curette used to selectively remove [...] prn -<20cm2 nonviable tissue removed Nonselective Debridement (76822): RIGHT LE cleansed with warm soapy water [...] as patient has an appt tomorrow for [employer] wraps. Patient will be out of town [...] event? No Billing: Evaluation - Moderate Complexity (82080) Noncontact Ultrasound Mist (95640): no charge Selective Sharp Debridement <20cm (05563): 1 unit Nonselective debridement (14408): no charge Session Start Time : 1550 Session Stop Time : 1655 Total time: 65 minutes Amanda Soto PT documented in this encounterSheltering Arms Hospital06-25-2024 Instructions* Patient Instructions* Gt Yin, - 02/27/2024 9:25 AM EDT Vasculera- food supplement; vein health [place] Wrap or Circaid stocking Plan is get ultrasound of veins and follow up May benefit from referral to [place] [facility] Ash Handler- Amanda Soto documented in this encounterSheltering Arms Hospital06-25-2024 NoteHNO ID: [id number] Author: GT YIN DO Service: ? Author Type: Physician Type: Progress Notes Filed: 03/26/2024 13:56 Note Text: Heart, Vascular and Thoracic [place] DEPARTMENT OF VASCULAR SURGERY OUTPATIENT VISIT DATE [...] past year. She has been treated at [place] [facility]. They recommend HBO to help with healing. She has history of AGSV EVLT and phlebectomy in 2015. She had reflux testing at [place] which demonstrated reflux and had ablation a few months ago and has had issue healing since the procedure. She wears compression stockings- knee high stockings. She currently has epifix in place with an compression dressing. 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 She stands for long periods of time during the day. 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 Has used compression pumps [...] motor skills. Vascular: Dorsal (more content not included)...[facility] 02-27-2024 History of Present illness Narrative* Gt Yin, - 02/27/2024 8:31 AM EDT Images from the original note were not included. Heart, Vascular and Thoracic [place] DEPARTMENT OF VASCULAR SURGERY OUTPATIENT VISIT DATE [...] past year. She has been treated at [place] wound [facility]. They recommend HBO to help with healing. She has history of AGSV EVLT and phlebectomy in 2015. She had reflux testing at [place] which demonstrated reflux and had ablation a few months ago and has had issue healing since the procedure. She wears compression stockings- knee high stockings. She currently has epifix in placewith an compression dressing. 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 She stands for long periods of timeduring the day. 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 Author [...] Session Stop Time : 1110 Liseth Alanis, [facility]06-18-20[facility] History of Present illness Narrative* Benny Liseth, [...] 1110 Liseth Alanis PT documented in this encounterSheltering Arms Hospital06-11-2024 History of Present illness Narrative* Liseth Alanis PT - 02/13/2024 11:06 AM EDT Program_ID:[id number] Access Code: [email or web address] URL: [email or web address] Date: 02-13-2024 Prepared By: Liseth Alanis Program [...] hurdles x6 fwd stepping with SC and OLD COIN DEALER 4x R lead, 4x L lead Skilled [...] 1108 Liseth Alanis PT documented in this encounterSheltering Arms Hospital06-11-2024 NoteHNO ID: [id number] Author: LISETH ALANIS PT Service: ? Author [...] hurdles x6 fwd stepping with SC and OLD COIN DEALER 4x R lead, 4x L lead Skilled [...] Session Stop Time : 1108 Liseth Alanis, [facility]06-04-2024 History of Present illness Narrative* Liseth Alanis, PT - 02/06/2024 8:47 AM EDT Program_ID:[id number] Access Code: [email or web address] URL: [email or web address] Date: 02-06-2024 Prepared By: Liseth Alanis Program [...] seat 13 subjective collected 2: *Access Code: [email or web address] URL: [email or web address] Date: 02/06/2024 Prepared by: Liseth Silva Exercises [...] 854 Liseth Alanis PT documented in this encounterSheltering Arms Hospital06-04-2024 NoteHNO ID: [id number] Author: LISETH ALANIS PT Service: ? Author [...] seat 13 subjective collected 2: *Access Code: [email or web address] URL: [email or web address] Date: 02/06/2024 Prepared by: Liseth Alanis Exercises [...] needs. Provided written instruct (more content not included)...[facility]05-28-[facility] History of Present illness Narrative* Liseth Alanis, PT - 01/30/2024 11:07 AM EDT Program_ID:[id number] Access Code: [email or web address] URL: [email or web address] Date: 01-30-2024 Prepared By: Liseth Alanis Program [...] 1110 Liseth Alanis PT documented in this encounterSheltering Arms Hospital05-28-2024 NoteHNO ID: [id number] Author: LISETH ALANIS PT Service: ? Author [...] Session Stop Time : 1110 Liseth Alanis [facility]05-22-2024 NoteHNO ID: [id number] Author: LISETH ALANIS PT Service: ? Author [...] more repetitions to reflect decreased fall risk. [place] in home exercise program including cardiovascular exercise. Complete 6 MWT x1545 ft or more with or without SC. Patient Goals: amb without an AD from handicap spot to front door without LOB Planned Interventions, Frequency, and Duration: Current Frequency: 1x/week Duration: 6 weeks Total Number of Visits Planned: 6 Planned Treatment Interventions: Self-residential management (61934), Gait Training (21642), Therapeutic activities (81115), Manual therapy (65986), Neuromuscular re-education (81146), Therapeutic exercise (31272) PLAN FOR NEXT VISIT: 6 MWT Patient [...] Extension: Major limitation Mobil (more content not included)...[facility]05-22-[facility]24 History of Present illness Narrative* Liseth Alanis, [...] more repetitions to reflect decreased fall risk. [place] in home exercise program including cardiovascular exercise. Complete 6 MWT x1545 ft or more with or without SC. Patient Goals: amb without an AD from handicap spot to front door without LOB Planned Interventions, Frequency, and Duration: Current Frequency: 1x/week Duration: 6 weeks Total Number of Visits Planned: 6 Planned Treatment Interventions: Self-residential management (02692), Gait Training (04577), Therapeutic activities (37909), Manual therapy (33101), Neuromuscular re-education (98016), Therapeutic exercise (75984) PLAN FOR NEXT VISIT: 6 MWT Patient [...] 1625 Liseth Alanis PT documented in this encounterSheltering Arms Hospital04-27-2024 Discharge summary Author Harrison Roper [facility] December 30, 2023 1:30pm Note Date/Time December 30, 2023 1:2 5pm [facility] Medical Records Department [address] [place] [address] Instructions for Home/Discharge Instructions 12/30/23 1025 MR#: [id number] Acct: [id number] Name: MARY ALICE GA Rep #:[id number] : 1950 73 From: Harrison Hughes PCP: [...] CC: Dr. Khanh Rodriguez MD ~ Signed [facility] Work Phone: 1(539) 629-661804-27-2024 Procedure [facility] 12-30-2023 Procedure [facility]04-26-2024 Progress note Author Johny Davila [facility] December 29, 2023 5:46pm Note Date/Time December 29, 2023 5:4 6pm [facility] Medical Records Department [address] [place] [address] Progress Note - GI 12/29/23 1743 MR#: [id number] Acct: [id number] Name: MARY ALICE GA Rep #:[id number] : 1950 73 From: Johny Friend DO PCP: Dr. Khanh Rodriguez MD Status:A DM IN Location: [address] 1 Subjective Subjective Patient underwent an [...] 89.6 H, Lymph % (Auto) 7.5 L, [place] % (Auto) 2.5, Eos % (Auto) 0.0, [...] direct bilirubin. Charges/Coding Visit Charges Inpatient E&M: 74358 Subs Hosp L3 12/29/23 1746 <Electronically signed by Johny Friend DO> Cosigner Signature (if applicable): CC: ~ Signed [facility] Work Phone: 1(226) 419-515004-26-2024 Progress note Author Harrison Roper [facility] December 29, 2023 1:31pm Note Date/Time December 29, 2023 1:1 3pm [facility] Medical Records Department [address] [place] [address] Progress Note - Hospitalist 12/29/23 1312 MR#: [id number] Acct: [id number] Name: MARY ALICE GA Rep #:[id number] : 1950 73 From: Harrison Hughes PCP: Dr. Khanh Rodriguez MD Status:A DM IN Location: [place] [address] Reason for Visit Reason for Visit: Diagnoses [...] 89.6 H, Lymph % (Auto) 7.5 L, [place] % (Auto) 2.5, Eos % (Auto) 0.0, [...] of breast cancer: Patient on anastrozole.Patient follows [place] [facility]. On alendronate continued Living will/advanced directive/end of life care: Patient does not living will or advanced directive. Her is power of collections attorney for health. After discussion of benefits/risks procedures involved with full code, DNR CC arrest and DNR CC, the patient opted for full code. Patient does want artificial life support including intubation, tube feed, ventilator and/chest compression, central venous catheter, vasopressor and DC shock if needed Total time spent in ihcp-qj-zrzp encounter in discussion of advanced directive 17 minutes. Clinical Impression(s) from Imaging Studies Abdomen/Pelvis CT 12/27/23 10:14 IMPRESSION: Findings suggestive of cirrhosis. Fatty infiltration of the liver. Small gallstones with mild thickening of the gallbladder wall. Small amount of ascites. Sigmoid diverticulosis. Small umbilical hernia containing fat. Charges/Coding Visit Charges Inpatient E&M: 21845 Subs Hosp L2 12/29/23 0141 <Electronically signed by Harrison Roper MD> Cosigner Signature (if applicable): CC: ~ Signed [facility] Work Phone: 1(590) 647-435804-25-2024 Progress note Author Harrison Roper [facility] December 28, 2023 3:51pm Note Date/Time December 28, 2023 8:1 9am [facility] Medical Records Department [address] [place] [address] Progress Note - Hospitalist 12/28/23 0814 MR#: [id number] Acct: [id number] Name: MARY ALICE GA Rep #:[id number] : 1950 73 From: Harrison Hughes PCP: Dr. Khanh Rodriguez MD Status:A DM IN Location: [address] 1 Reason for Visit Reason for [...] Sl. Cloudy, Urine pH 7.0, Ur Specific Liberal 1.005, Urine Protein 15 H, Urine Glucose [...] (Auto) 73.0 H, Lymph % (Auto) 19.2, [place] % (Auto) 6.7, Eos % (Auto) 0.4, [...] % (Auto) 69.7, Lymph % (Auto) 22.8, [place] % (Auto) 5.3, Eos % (Auto) 1.5, Baso % (Auto) 0.5, Absolute Neuts (auto) 2.9, Absolute Lymphs (auto) 0.94, Nucleated RBC % 0, Differential CommentSCANNED, Diff Path Review May foll, Platelet Estimate MOD DEC, Polychromasia 1+,Anisocytosis 2+, Macrocytosis 2+, Ovalocytes RARE, [place] Bodies RARE, PT 16.9 H, INR 1.4, [...] of breast cancer: Patient on anastrozole.Patient follows [facility]. On alendronate continued Living will/advanced directive/end of life care: Patient does not living will or advanced directive. Her is power of collections attorney for health. After discussion of benefits/risks procedures involved with full code, DNR CC arrest and DNR CC, the patient opted for full code. Patient does want artificial life support including intubation, tube feed, ventilator and/chest compression, central venous catheter, vasopressor and DC shock if needed Total time spent in pcfh-je-crup encounter in discussion of advanced directive 17 [...] % (Auto) 69.7, Lymph % (Auto) 22.8, [place] % (Auto) 5.3, Eos % (Auto) 1.5, Baso % (Auto) 0.5, Absolute Neuts (auto) 2.9, Absolute Lymphs (auto) 0.94, Nucleated RBC % 0, Differential CommentSCANNED, Diff Path Review May foll, Platelet Estimate MOD DEC, Polychromasia 1+,Anisocytosis 2+, Macrocytosis 2+, Ovalocytes RARE, [place] Bodies RARE, PT 16.9 H, INR 1.4, [...] containing fat. Charges/Coding Visit Charges Inpatient E&M: 71829 Subs Hosp L2 12/28/23 1558 <Electronically signed by Harrison Roper MD> Cosigner Signature (if applicable): CC: ~ Signed [facility] Work Phone: [phone] [id number] [facility] Discharge summary Author Yair Lazcano [facility] December 27, 2023 3:34pm Note Date/Time December 27, 2023 9:1 5am [facility] Medical Records Department [address] [place] [address] Emergency Department Summary 12/27/23 MR#: [id number] Acct: [id number] Name: MARY ALICE GA Rep #:[id number] : 1950 73 From: Yair Luna PCP: Dr. Khanh Rodriguez MD Status:A DM IN Location: [address] History of Present Illness Chief Complaint: [...] states that on Monday she went to [email or web address] and picked up an eggroll chicken and [...] yellow. is currently in the hospital in [place] with a broken femur and is being transferred to a rehab facility today. She denies any abdominal pain but states that her abdomen is generally sore. Patient does takepantoprazole daily. Patient states that they typically will winter in [place] where she sees a readers' advisory service librarian. She states that this is the first year they did not go back. [facility] Medical History Abnormal mammogram of left [...] (Auto) 73.0 H Lymph % (Auto) 19.2 [place] % (Auto) 6.7 Eos % (Auto) 0.4 [...] Sl. Cloudy Urine pH 7.0 Ur Specific Liberal 1.005 Urine Protein 15 H Urine Glucose [...] 10:54 EDT Reading Location ID and State: [facility] / [place] , Service support , Management Discussion w/another healthcare provider: Hospitalist (Dr Roper) and Police Aide (GI Dr Davila) Discharge Plan Dx/Rx/DC Orders Clinical Impression: Decompensated hepatic cirrhosis, Jaundice, Acute upper GI bleeding, Ascites, Thrombocytopenia Disposition Disposition: [facility] What to do if you have Problems For any increased pain, shortness of breath, bleeding, nausea or vomiting, chestpain, or any unexpected problems, contact your Primary Care Provider. Call [facility] ([phone]) or report to the closest Emergency Room. Call 911 if necessary. 12/27/23 1534 <Electronically signed by Yair Lazcano DO> Cosigner Signature (if applicable): CC: Dr. Khanh Rodriguez MD ~ Signed [facility] Work Phone: 1(106) 132-217704-24-2024 History and physical note Author Harrison Roper [facility] December 27, 2023 1:37pm Note Date/Time December 27, 2023 1:3 1pm [facility] Medical Records Department [address] [place] [address] H&P Exam - Hospitalist 12/27/23 1317 MR#: [id number] Acct: [id number] Name: MARY ALICE GA MIKAYLA Rep #:[id number] : 1950 73 From: Harrison Hughes PCP: Dr. Khanh Rodriguez MD Status:A DM IN Location: [place] [address] HPI - General General Date of Admission: [...] or pattern drinking alcohol even on asking. [facility] Medical History Abnormal mammogram of left [...] Sl. Cloudy, Urine pH 7.0, Ur Specific Liberal 1.005, Urine Protein 15 H, Urine Glucose [...] (Auto) 73.0 H, Lymph % (Auto) 19.2, [place] % (Auto) 6.7, Eos % (Auto) 0.4, [...] of breast cancer: Patient on anastrozole.Patient follows [facility]. On alendronate continued Living will/advanced directive/end of life care: Patient does not living will or advanced directive. Her is power of collections attorney for health. After discussion of benefits/risks procedures involved with full code, DNR CC arrest and DNR CC, the patient opted for full code. Patient does want artificial life support including intubation, tube feed, ventilator and/chest compression, central venous catheter, vasopressor and DC shock if needed Total time spent in mbna-yu-mqgr encounter in discussion of advanced directive 17 minutes. Microbiology Past 72 Hours 12/27/23 09:39 Stool Stool Occult Blood (KENDRA) - Final Occult Blood Positive Laboratory Results 12/27/23 09:25: Urine Color Yellow, Urine Clarity Sl. Cloudy, Urine pH 7.0, Ur Specific Liberal 1.005, Urine Protein 15 H, Urine Glucose [...] (Auto) 73.0 H, Lymph % (Auto) 19.2, [place] % (Auto) 6.7, Eos % (Auto) 0.4, [...] containing fat. Charges/Coding Visit Charges Inpatient E&M: 26445 Init Hosp L3 Procedures Hospitalists Procedures: 92098 Advncd Care Plan 30 Min 12/27/23 1337 <Electronically signed by Harrison Roper MD> Cosigner Signature (if applicable): CC: Dr. Khanh Rodriguez MD; Dr. Harrison Roper MD~ Signed [facility] Work Phone: 1(963) 403-302103-27-2024 Progress note Author Mariela Martines [facility] November 29, 2023 11:27am Note Date/Time November 29, 2023 11: 15am [facility] [address] [place] [address] [place] [address] Progress Note - Wound Care 11/29/23 1111 MR#: [id number] Acct: [id number] Name: MARY ALICE GA Rep #:[id number] : 1950 73 From: Mariela Martines NP ELEVATOR INSPECTOR-C PCP: Dr. Khanh Rodriguez MD Status:R EG RCR Location: History of Present Illness Date of Service: 11/29/23 Chief Complaint: Follow-up on her right lower leg lateral area wound nonhealing since at least November. History of Wound: 72-year-old white female in [place] where she is living duringthe winter. She [...] and is being seen by oncology at [place] for that. She has left total mastectomy [...] Type of service Follow-up Visit Follow-up Visit (Physician/FURNITURE UPHOLSTERER APPRENTICE (Physician/FURNITURE UPHOLSTERER APPRENTICE ) ) Arrival Mode Ambulatory Ambulatory,Cane Ambulatory,Cane [...] Visit Information Type of service Follow-up Visit (Physician/FURNITURE UPHOLSTERER APPRENTICE ) Arrival Mode Ambulatory Transfer Assistance None [...] (1-33%) Small (1-33%) Medium (34-66%) -Granulation Quality Towaco Towaco Red -Necrosis Amt Large (67-100%) Large (67-100%) [...] Date Recorded By Document 11/08/23 10:23 JF [employer] 11/08/23 10:34 JF Document 11/15/23 10:04 MW Desktop 11/15/23 10:12 MW Document 11/22/23 10:06 MW Desktop 11/22/23 10:13 MW Document 11/29/23 10:04 [facility] Desktop 11/29/23 10:10 [facility] 11/08/23 11/15/23 11/22/23 10:23 10:04 10:06 [...] Epifix -Expiration Date 07/05/28 -Product Lot Number [id number] -Percent Used 100 -Lot number of Saline Used [id number] -Bleeding Controlled with Pressure Pressure Pressure -Other [...] from surgery. Follow-up in 1 week 11/29/23 1129 <Electronically signed by Mariela Martines NP ELEVATOR INSPECTOR-C> Cosigner Signature (if applicable): CC: ~ Signed [facility] Work Phone: 1(552) 608-451903-20-2024 Progress note Author Mariela Martines [facility] November 22, 2023 11:44am Note Date/Time November 22, 2023 11: 44am [facility] [address] [place] [address] Progress Note - Wound Care 11/22/23 1138 MR#: [id number] Acct: [id number] Name: MARY ALICE GA Rep #:[id number] : 1950 73 From: Mariela Martines ELEVATOR INSPECTOR ELEVATOR INSPECTOR-C PCP: Dr. Khanh Rodriguez MD Status:R EG RCR Location: History of Present Illness Date of Service: 11/22/23 Chief Complaint: Follow-up on her right lower leg lateral area wound nonhealing since at least November. History of Wound: 72-year-old white female in [place] where she is living duringthe winter. She [...] and is being seen by oncology at [place] for that. She has left total mastectomy [...] has made arrangements to move back to [place] for a couple of months and will [...] Type of service Follow-up Visit Follow-up Visit (Physician/FURNITURE UPHOLSTERER APPRENTICE (Physician/FURNITURE UPHOLSTERER APPRENTICE ) ) Arrival Mode Ambulatory Ambulatory,Cane Ambulatory,Cane [...] (1-33%) Small (1-33%) Medium (34-66%) -Granulation Quality Towaco Towaco Red -Necrosis Amt Large (67-100%) Large (67-100%) [...] Recorded Date Recorded By Document 11/08/23 10:23 [employer] 11/08/23 10:34 JF Document 11/15/23 10:04 MW [...] Epifix -Expiration Date 07/05/28 -Product Lot Number [id number] -Percent Used 100 -Lot number of Saline Used [id number] -Bleeding Controlled with Pressure Pressure Pressure -Other [...] Cosigner Signature (if applicable): CC: ~ Signed [facility] Work Phone: 1(755) 375-416503-13-2024 Progress note Author Mariela Martines [facility] November 15, 2023 12:35pm Note Date/Time November 15, 2023 12: 36pm [facility] [address] [place] [address] Progress Note - Wound Care 11/15/23 1229 MR#: [id number] Acct: [id number] Name: MARY ALICE GA Rep #:[id number] : 1950 73 From: Mariela Martines NP ELEVATOR INSPECTOR-C PCP: Dr. Khanh Rodriguez MD Status:R EG RCR Location: History of Present Illness Date of Service: 11/15/23 Chief Complaint: Follow-up on her right lower leg lateral area wound nonhealing since at least November. History of Wound: 72-year-old white female in [place] where she is living duringthe winter. She [...] and is being seen by oncology at [place] for that. She has left total mastectomy [...] Type of service Follow-up Visit Follow-up Visit (Physician/FURNITURE UPHOLSTERER APPRENTICE (Physician/FURNITURE UPHOLSTERER APPRENTICE ) ) Arrival Mode Ambulatory Ambulatory,Cane Transfer [...] Amt Small (1-33%) Small (1-33%) -Granulation Quality Towaco Towaco -Necrosis Amt Large (67-100%) Large (67-100%) -Necrotic Tissue Type Adherent Slough Adherent Slough -Structure Exposed N/A N/A -Texture (Elif-wound Skin Appearance) Localized Edema Scarring ,Scarring -Moisture (Elif-wound Skin Appearance) No Abnormality Not Assessed -Color (Elif-wound Skin Appearance) Hemosiderin Hemosiderin Staining Staining -Temperature (Eilf-wound Skin No Abnormality No Abnormality Appearance) (Pt [...] Date Recorded By Document 11/08/23 10:23 JF [employer] 11/08/23 10:34 JF Document 11/15/23 10:04 MW [...] Epifix -Expiration Date 07/05/28 -Product Lot Number [id number] -Percent Used 100 -Lot number of Saline Used [id number] -Bleeding Controlled with Pressure Pressure -Other Type [...] Cosigner Signature (if applicable): CC: ~ Signed [facility] Work Phone: 1(442) 109-309703-06-2024 Progress note Author Hugo Johnson [facility] November 08, 2023 11:59am Note Date/Time November 08, 2023 11:2 6am [facility] [address] [place] [address] Progress Note - Wound Care 11/08/23 1121 MR#: [id number] Acct: [id number] Name: MARY ALICE GA Rep #:[id number] : 1950 73 From: Hugo Hughes PM PCP: Dr. Khanh Rodriguez MD Status:R EG RCR Location: History of Present Illness Date of Service: 11/08/23 Chief Complaint: Follow-up on her right lower leg lateral area wound nonhealing since at least November. History of Wound: 72-year-old white female in [place] where she is living duringthe winter. She [...] and is being seen by oncology at [place] for that. She has left total mastectomy [...] Visit Information Type of service Follow-up Visit (Physician/FURNITURE UPHOLSTERER APPRENTICE ) Arrival Mode Ambulatory Transfer Assistance None [...] Attached -Granulation Amt Small (1-33%) -Granulation Quality Towaco -Necrosis Amt Large (67-100%) -Necrotic Tissue Type [...] Recorded Date Recorded By Document 11/08/23 10:23 [employer] 11/08/23 10:34 11/08/23 10:23 Wound Center Nurse [...] Epifix -Expiration Date 07/05/28 -Product Lot Number [id number] -Percent Used 100 -Lot number of Saline Used [id number] -Bleeding Controlled with Pressure -Other Type of [...] the GI specialist Dr. Davila here at [place]. Patient was understanding and will be discussing this with her primary doctor. 11/08/23 1159 <Electronically signed by Hugo Johnson DPM> Cosigner Signature (if applicable): CC: ~ Signed [facility] Work Phone: 1(737) 778-500502-28-2024 Progress note Author Mariela Martines [facility] November 01, 2023 11:59am Note Date/Time November 01, 2023 11:59am [facility] [address] [place] [address] Progress Note - Wound Care 11/01/23 1153 MR#: [id number] Acct: [id number] Name: MARY ALICE GA Rep #:[id number] : 1950 73 From: Mariela Martines NP ELEVATOR INSPECTOR-C PCP: Dr. Khanh Rodriguez MD Status:R ESTUARDO RCR Location: History of Present Illness Date of Service: 11/01/23 Chief Complaint: Follow-up on her right lower leg lateral area wound nonhealing since at least November. History of Wound: 72-year-old white female in [place] where she is living duringthe winter. She [...] and is being seen by oncology at [place] for that. She has left total mastectomy [...] Desktop 10/11/23 10:02 DL Document 10/18/23 09:49 [facility] Desktop 10/18/23 09:56 [facility] Document 10/23/23 08:56 DL Desktop 10/23/23 09:08 DL Document 10/25/23 09:43 F Desktop 10/25/23 09:52 BMF Document 11/01/23 08:51 [facility] Desktop 11/01/23 08:56 F 10/11/23 10/18/23 10/23/23 09:55 09:49 08:56 WC - Today's Visit Information Type of service Follow-up Visit Follow-up Visit Nurse-only (Physician/FURNITURE UPHOLSTERER APPRENTICE (Physician/FURNITURE UPHOLSTERER APPRENTICE Visit ) ) Arrival Mode Ambulatory Ambulatory [...] Yes Yes Yes 10/25/23 11/01/23 09:43 08:51 [facility] Today's Visit Information Type of service Follow-up Visit Follow-up Visit (Physician/FURNITURE UPHOLSTERER APPRENTICE (Physician/FURNITURE UPHOLSTERER APPRENTICE ) ) Arrival Mode Ambulatory,Cane Ambulatory,Cane Transfer [...] Desktop 10/11/23 10:21 MW Document 10/18/23 10:11 [employer] 10/18/23 10:18 JF Document 10/25/23 10:00 [...] Date 07/05/28 07/05/28 09/14/27 -Product Lot Number [id number] 012 -Percent Used 100 100 100 -Lot number of Saline Used [id number] -Bleeding Controlled with Pressure Pressure Pressure -Treatment [...] Epifix -Expiration Date 07/05/28 -Product Lot Number [id number] -Percent Used 100 -Lot number of Saline Used [id number] -Bleeding Controlled with Pressure -Treatment Response Procedure [...] Cosigner Signature (if applicable): CC: ~ Signed [facility] Work Phone: 1(978) 812-584602-22-2024 Procedure [facility] 10-26-2023 History and physical note Author Shabbir Galaviz [facility] October 26, 2023 1:23pm Note Date/Time October 26, 2023 1:23pm [facility] Medical Records Department [address] [place] [address] History & Physical Exam 10/26/23 1321 MR#: [id number] Acct: [id number] Name: MARY ALICE GA Rep #:[id number] : 1950 73 From: Shabbir Galaviz MD PCP: Dr. Khanh Rodriguez MD Status:R [facility] Location: [facility] HPI - General HPI Narrative MARY ALICE GA, is a 73 F who presents with recurrent right lower extremity venous wounds, prior treatment of above knee segments. She presents for ablationof below knee incompetent GSV. [facility] Medical History Abnormal mammogram of left [...] Rodriguez MD; Dr. Shabbir Galaviz MD~ Signed [facility] Work Phone: 1(385) 632-600302-21-2024 Progress note Author Mariela Martines [facility] October 25, 2023 11:44am Note Date/Time October 25, 2023 11:44am [facility] [address] [place] [address] Progress Note - Wound Care 10/25/23 1139 MR#: [id number] Acct: [id number] Name: MARY ALICE GA Rep #:[id number] : 1950 73 From: Mariela Martines NP ELEVATOR INSPECTOR-C PCP: Dr. Khanh Rodriguez MD Status:R EG RCR Location: History of Present Illness Date of Service: 10/25/23 Chief Complaint: Follow-up on her right lower leg lateral area wound nonhealing since at least November. History of Wound: 72-year-old white female in [place] where she is living duringthe winter. She [...] and is being seen by oncology at [place] for that. She has left total mastectomy [...] of service Follow-up Visit Follow-up Visit Nurse-only (Physician/FURNITURE UPHOLSTERER APPRENTICE (Physician/FURNITURE UPHOLSTERER APPRENTICE Visit ) ) Arrival Mode Ambulatory Ambulatory [...] Visit Information Type of service Follow-up Visit (Physician/FURNITURE UPHOLSTERER APPRENTICE ) Arrival Mode Ambulatory,Cane Transfer Assistance None [...] Date 07/05/28 07/05/28 09/14/27 -Product Lot Number [id number] 004 012 -Percent Used 100 100 100 -Lot number of Saline Used [id number] -Bleeding Controlled with Pressure Pressure Pressure -Treatment [...] 10/25/231143 <Electronically signed by Mariela Martines NP ELEVATOR INSPECTOR-C> Cosigner Signature (if applicable): CC: ~ Signed [facility] Work Phone: 1(695) 231-446102-14-2024 Progress note Author Hugo Johnson [facility] October 18, 2023 11:52am Note Date/Time October 18, 2023 11:48am [facility] [address] [place] [address] Progress Note - Wound Care 10/18/23 1147 MR#: [id number] Acct: [id number] Name: MARY ALICE GA Rep #:[id number] : 1950 73 From: Hugo Hughes PM PCP: Dr. Khanh Rodriguez MD Status:R EG RCR Location: History of Present Illness Date of Service: 10/18/23 Chief Complaint: Follow-up on her right lower leg lateral area wound nonhealing since at least November. History of Wound: 72-year-old white female in [place] where she is living duringthe winter. She [...] and is being seen by oncology at [place] for that. She has left total mastectomy [...] Desktop 10/11/23 10:02 DL Document 10/18/23 09:49 [facility] Desktop 10/18/23 09:56 F 10/11/23 10/18/23 09:55 09:49 - Today's Visit Information Type of service Follow-up Visit Follow-up Visit (Physician/FURNITURE UPHOLSTERER APPRENTICE (Physician/FURNITURE UPHOLSTERER APPRENTICE ) ) Arrival Mode Ambulatory Ambulatory Transfer [...] Desktop 10/11/23 10:02 DL Document 10/18/23 09:49 [facility] Desktop 10/18/23 09:56 [facility] 10/11/23 10/18/23 09:55 09:49 Wound Center [...] -Expiration Date 07/05/28 07/05/28 -Product Lot Number [id number] -Percent Used 100 100 -Lot number of Saline Used [id number] -Bleeding Controlled with Pressure Pressure -Treatment Response [...] Cosigner Signature (if applicable): CC: ~ Signed [facility] Work Phone: 1(577) 738-913802-07-2024 Progress note Author Mariela Martines [facility] October 11, 2023 10:43am Note Date/Time October 11, 2023 1 0:43am [facility] [place] [address] Progress Note - Wound Care 10/11/23 1040 MR#: [id number] Acct: [id number] Name: MARY ALICE GA Rep #:[id number] : 1950 73 From: Mariela Martines NP ELEVATOR INSPECTOR-C PCP: Dr. Khanh Rodriguez MD Status:R EG RCR Location: History of Present Illness Date of Service: 10/11/23 Chief Complaint: Follow-up on her right lower leg lateral area wound nonhealing since at least November. History of Wound: 72-year-old white female in [place] where she is living duringthe winter. She [...] and is being seen by oncology at [place] for that. She has left total mastectomy [...] Visit Information Type of service Follow-up Visit (Physician/FURNITURE UPHOLSTERER APPRENTICE ) Arrival Mode Ambulatory Transfer Assistance None [...] Epifix -Expiration Date 07/05/28 -Product Lot Number [id number] -Percent Used 100 -Lot number of Saline Used [id number] -Bleeding Controlled with Pressure -Treatment Response Procedure [...] 1043 <Electronically signed by Mariela Martines NP ELEVATOR INSPECTOR-C> Cosigner Signature (if applicable): CC: ~ Signed [facility] Work Phone: 1(959) 743-216801-31-2024 Progress note Author Mariela Martines [facility] October 04, 2023 12:13pm Note Date/Time October 04, 2023 1 2:13pm [facility] [address] [place] [address] Progress Note - Wound Care 10/04/23 1210 MR#: [id number] Acct: [id number] Name: MARY ALICE GA Rep #:[id number] : 1950 73 From: Mariela Martines NP ELEVATOR INSPECTOR-C PCP: Dr. Khanh Rodriguez MD Status:R EG RCR Location: History of Present Illness Date of Service: 10/04/23 Chief Complaint: Follow-up on her right lower leg lateral area wound nonhealing since at least November. History of Wound: 72-year-old white female in [place] where she is living duringthe winter. She [...] and is being seen by oncology at [place] for that. She has left total mastectomy [...] February. Patient would like to leave for [place] in October Subjective Subjective Patient agrees with [...] service Follow-up Visit Follow-up Visit Follow-up Visit (Physician/FURNITURE UPHOLSTERER APPRENTICE (Physician/FURNITURE UPHOLSTERER APPRENTICE (Physician/FURNITURE UPHOLSTERER APPRENTICE ) ) ) Arrival Mode Ambulatory Ambulatory,Cane [...] Visit Information Type of service Follow-up Visit (Physician/FURNITURE UPHOLSTERER APPRENTICE ) Arrival Mode Ambulatory,Cane Transfer Assistance None [...] Amt Large (67-100%) Large (67-100%) -Granulation Quality Towaco,Red Towaco -Necrosis Amt None Present (0 Small (1-33%) [...] MW Edit Result 09/13/23 10:05 MW (1) [id number] 09/14/23 06:58 PL Document 09/27/23 10:12 MW [...] Date 05/05/28 05/05/28 05/05/28 -Product Lot Number [id number] -Percent Used 100 100 100 -Lot number of Saline Used [id number] -Bleeding Controlled with Pressure Pressure Pressure -Treatment [...] Tissue -Expiration Date 06/04/28 -Product Lot Number [id number] -Percent Used 100 -Lot number of Saline Used [id number] -Bleeding Controlled with Pressure -Treatment Response Procedure [...] 1213 <Electronically signed by Mariela Martines NP ELEVATOR INSPECTOR-C> Cosigner Signature (if applicable): CC: ~ Signed [facility] Work Phone: 1(752) 528-185501-24-2024 Progress note Author Mariela Martines [facility] September 27, 2023 10:46am Note Date/Time September 27, 2023 1 0:39am [facility] [address] [place] [address] Progress Note - Wound Care 09/27/23 1037 MR#: [id number] Acct: [id number] Name: MARY ALICE GA Rep #:[id number] : 1950 73 From: Mariela Martines ELEVATOR INSPECTOR ELEVATOR INSPECTOR-C PCP: Dr. Khanh Rodriguez MD Status:R EG RCR Location: History of Present Illness Date of Service: 09/27/23 Chief Complaint: Follow-up on her right lower leg lateral area wound nonhealing since at least November. History of Wound: 72-year-old white female in [place] where she is living duringthe winter. She [...] and is being seen by oncology at [place] for that. She has left total mastectomy [...] service Follow-up Visit Follow-up Visit Follow-up Visit (Physician/FURNITURE UPHOLSTERER APPRENTICE (Physician/FURNITURE UPHOLSTERER APPRENTICE (Physician/FURNITURE UPHOLSTERER APPRENTICE ) ) ) Arrival Mode Ambulatory Ambulatory,Cane [...] Amt Large (67-100%) Large (67-100%) -Granulation Quality Towaco,Red Towaco -Necrosis Amt None Present (0 Small (1-33%) [...] MW Edit Result 09/13/23 10:05 MW (1) [id number] 09/14/23 06:58 PL Document 09/27/23 10:12 MW [...] -Expiration Date 05/05/28 05/05/2828 -Product Lot Number [id number] -Percent Used 100 100 100 -Lot number of Saline Used [id number] -Bleeding Controlled with Pressure Pressure Pressure -Treatment [...] 1046 <Electronically signed by Mariela Martines NP ELEVATOR INSPECTOR-C> Cosigner Signature (if applicable): CC: ~ Signed [facility] Work Phone: 1(697) 422-753001-10-2024 Progress note Author Mariela Martines [facility] September 13, 2023 12:26pm Note Date/Time September 13, 2023 1 2:09pm [facility] [address] [place] [address] Progress Note - Wound Care 09/13/23 1206 MR#: [id number] Acct: [id number] Name: MARY ALICE GA Rep #:[id number] : 1950 72 From: Mariela Martines NP ELEVATOR INSPECTOR-C PCP: Dr. Khanh Rodriguez MD Status:R EG RCR Location: History of Present Illness Date of Service: 09/13/23 Chief Complaint: Follow-up on her right lower leg lateral area wound nonhealing since at least November. History of Wound: 72-year-old white female in [place] where she is living duringthe winter. She [...] and is being seen by oncology at [place] for that. She has left total mastectomy [...] Start: 09/06/23 09:48 Freq: Status: Active Protocol: HERMILAAdvaliant Activity Type Activity Date Activity User E-sign Co-sign Detail Recorded Client Recorded Date Recorded By Document 09/06/23 09:49 DL Desktop 09/06/23 09:59 DL Document 09/13/23 09:49 DL Desktop 09/13/23 09:58 DL 09/06/23 09/13/23 09:49 09:49 - Today's Visit Information Type of service Follow-up Visit Follow-up Visit (Physician/FURNITURE UPHOLSTERER APPRENTICE (Physician/FURNITURE UPHOLSTERER APPRENTICE ) ) Arrival Mode Ambulatory Ambulatory,Cane Transfer [...] Amt Large (67-100%) Large (67-100%) -Granulation Quality Tow[place],Red Tow[place] -Necrosis Amt None Present (0 Small (1-33%) [...] -Expiration Date 05/05/28 05/05/28 -Product Lot Number [id number] -Percent Used 100 100 -Lot number of Saline Used [id number] -Bleeding Controlled with Pressure Pressure -Treatment Response [...] 1226 <Electronically signed by Mariela Martines NP ELEVATOR INSPECTOR-C> Cosigner Signature (if applicable): CC: ~ Signed [facility] Work Phone: 1(290) 340-611901-03-2024 Progress note Author Hugo Johnson [facility] September 06, 2023 11:03am Note Date/Time September 06, 2023 11 :03am [facility] [address] [place] [address] Progress Note - Wound Care 09/06/23 1057 MR#: [id number] Acct: [id number] Name: MARY ALICE GA Rep #:[id number] : 1950 72 From: Hugo Hughes PM PCP: Dr. Khanh Rodriguez MD Status:R EG RCR Location: History of Present Illness Date of Service: 09/06/23 Chief Complaint: Follow-up on her right lower leg lateral area wound nonhealing since at least November. History of Wound: 72-year-old white female in [place] where she is living duringthe winter. She [...] and is being seen by oncology at [place] for that. She has left total mastectomy [...] Visit Information Type of service Follow-up Visit (Physician/FURNITURE UPHOLSTERER APPRENTICE ) Arrival Mode Ambulatory Transfer Assistance None [...] Attached -Granulation Amt Large (67-100%) -Granulation Quality [place],Red -Necrosis Amt None Present (0 %) -Structure [...] Epifix -Expiration Date 05/05/28 -Product Lot Number [id number] -Percent Used 100 -Lot number of Saline Used [id number] -Bleeding Controlled with Pressure -Treatment Response Procedure [...] Cosigner Signature (if applicable): CC: ~ Signed [facility] Work Phone: 1(215) 921-237010-26-2023 Progress note Author Thalia Barroso [facility] June 29, 2023 9:15am Note Date/Time June 28, 2023 1 :04pm [facility] [address] [place] [address] Progress Note - Wound Care 06/28/23 1304 MR#: [id number] Acct: [id number] Name: MARY ALICE GA Rep #:[id number] : 1950 72 From: Thalia mark ELEVATOR INSPECTOR ELEVATOR INSPECTOR-C PCP: Dr. Khnah Rodriguez MD Status:R EG RCR Location: History of Present Illness Date of Service: 06/28/23 Chief Complaint: Follow-up on her right lower leg lateral area wound nonhealing since at least November. History of Wound: 72-year-old white female in [place] where she is living duringthe winter. She [...] and is being seen by oncology at [place] for that. She has left total mastectomy [...] Method Room Air Charges/Coding Procedures Integumentary 150xxx-152xx: 81667 Skin sub graft trnk/arm/leg (Right lateral leg ulcer) Multi Select Codes Integumentary Integumentary CPT Codes: 14220 Nina subq tissue 20 sq cm/< (right [...] Recorded Date Recorded By Document 06/14/23 10:08 [employer] 06/14/23 10:16 Utility Scale Solar Document 06/21/23 10:48 [employer] 06/21/23 11:05 Utility [employer] Solar Document 06/28/23 09:53 DL Desktop 06/28/23 10:02 DL 06/14/23 06/21/23 06/28/23 10:08 10:48 09:53 - Today's Visit Information Type of service Follow-up Visit Nurse-only Follow-up Visit (Physician/FURNITURE UPHOLSTERER APPRENTICE Visit (Physician/FURNITURE UPHOLSTERER APPRENTICE ) ) Arrival Mode Ambulatory Ambulatory Ambulatory [...] Recorded Date Recorded By Document 06/14/23 10:08 Tealet Desktop 06/14/23 10:16 [place]et Document 06/21/23 10:48 [place] Desktop 06/21/23 11:05 Tealet Document 06/28/23 09:53 DL Desktop 06/28/23 10:02 [...] MW Edit Result 06/14/23 10:26 MW (1) [id number] 06/16/23 15:15 PL Document 06/21/23 11:18 MW [...] Date 03/04/28 03/04/28 03/04/28 -Product Lot Number [id number] 027 -Percent Used 100 100 100 -Lot number of Saline Used [id number] -Bleeding Controlled with Pressure Pressure Pressure -Treatment [...] 0915 <Electronically signed by Thalia Barroso NP ELEVATOR INSPECTOR-C> Cosigner Signature (if applicable): CC: ~ Signed [facility] Work Phone: 1(850) 869-623010-18-2023 Progress note Author Mariela Martines [facility] June 21, 2023 11:48am Note Date/Time June 21, 2023 1 1:42am [facility] [address] [place] [address] Progress Note - Wound Care 06/21/23 1138 MR#: [id number] Acct: [id number] Name: MARY ALICE GA Rep #:[id number] : 1950 72 From: Mariela Martines NP ELEVATOR INSPECTOR-C PCP: Dr. Khanh Rodriguez MD Status:R EG RCR Location: History of Present Illness Date of Service: 06/21/23 Chief Complaint: Follow-up on her right lower leg lateral area wound nonhealing since at least November. History of Wound: 72-year-old white female in [place] where she is living duringthe winter. She [...] and is being seen by oncology at [place] for that also. Progress of Wound: So [...] Recorded Date Recorded By Document 06/14/23 10:08 [employer] 06/14/23 10:16 [facility] Document 06/21/23 10:48 [employer]alet Desktop 06/21/23 11:05 [place] 06/14/23 06/21/23 10:08 10:48 - Today's Visit Information Type of service Follow-up Visit Nurse-only (Physician/FURNITURE UPHOLSTERER APPRENTICE Visit ) Arrival Mode Ambulatory Ambulatory Transfer [...] Recorded Date Recorded By Document 06/14/23 10:08 Utility Scale Solar Desktop 06/14/23 10:16 BMF Document 06/21/23 10:48 [employer]alet Desktop 06/21/23 11:05 BMF 06/14/23 06/21/23 10:08 [...] MW Edit Result 06/14/23 10:26 MW (1) [id number] 06/16/23 15:15 PL Document 06/21/23 11:18 MW [...] -Expiration Date 03/04/28 03/04/28 -Product Lot Number [id number] -Percent Used 100 100 -Lot number of Saline Used [id number] -Bleeding Controlled with Pressure Pressure -Treatment Response [...] 1148 <Electronically signed by Mariela Martines NP ELEVATOR INSPECTOR-C> Cosigner Signature (if applicable): CC: ~ Signed [facility] Work Phone: 1(677) 205-693810-11-2023 Progress note Author Mariela Martines [facility] June 14, 2023 11:10am Note Date/Time June 14, 2023 1 0:44am [facility] [address] [place] [address] Progress Note - Wound Care 06/14/23 1042 MR#: [id number] Acct: [id number] Name: MARY ALICE GA Rep #:[id number] : 1950 72 From: Mariela Martines NP ELEVATOR INSPECTOR-C PCP: Dr. Khanh Rodriguez MD Status:R EG RCR Location: History of Present Illness Date of Service: 06/14/23 Chief Complaint: Follow-up on her right lower leg lateral area wound nonhealing since at least November. History of Wound: 72-year-old white female in [place] where she is living duringthe winter. She [...] and is being seen by oncology at [place] for that also. Progress of Wound: So [...] Recorded Date Recorded By Document 06/14/23 10:08 [facility] Desktop 06/14/23 10:16 [facility] 06/14/23 10:08 - Today's Visit Information Type of service Follow-up Visit (Physician/FURNITURE UPHOLSTERER APPRENTICE ) Arrival Mode Ambulatory Transfer Assistance None [...] Recorded Date Recorded By Document 06/14/23 10:08 [facility] Desktop 06/14/23 10:16 [facility] 06/14/23 10:08 Wound Center Nurse 1 [...] Mesh -Expiration Date 03/04/28 -Product Lot Number [id number] -Percent Used 100 -Lot number of Saline Used [id number] -Bleeding Controlled with Pressure -Treatment Response Procedure [...] 1110 <Electronically signed by Mariela Martines NP ELEVATOR INSPECTOR-C> Cosigner Signature (if applicable): CC: ~ Signed [facility] Work Phone: 1(551) 583-381508-16-2023 Progress note Author Mariela Martines [facility] April 19, 2023 12:33pm Note Date/Time April 19, 2023 12 :33pm [facility] [address] [place] [address] Progress Note - Wound Care 04/19/23 1224 MR#: [id number] Acct: [id number] Name: MARY ALICE GA Rep #:[id number] : 1950 72 From: Mariela Martines NP ELEVATOR INSPECTOR-C PCP: Dr. Khanh Rodriguez MD Status:R EG RCR Location: History of Present Illness Date of Service: 04/19/23 Chief Complaint: Follow-up on her right lower leg lateral area wound nonhealing since at least November. History of Wound: 72-year-old white female in [place] where she is living duringthe winter. She [...] Recorded Date Recorded By Document 04/19/23 10:55 [facility] [id number] 04/19/23 11:03 [facility] 04/19/23 10:55 - Today's Visit Information Type of service Follow-up Visit (Physician/FURNITURE UPHOLSTERER APPRENTICE ) Arrival Mode Ambulatory,Cane Transfer Assistance None [...] Recorded Date Recorded By Document 04/19/23 10:55 [facility] [id number] 04/19/23 11:03 [facility] 04/19/23 10:55 Wound Center Nurse 1 [...] Date Recorded By Document 04/19/23 11:14 MW [id number] 04/19/23 11:29 MW 04/19/23 11:14 Wound Center [...] Disc -Expiration Date 01/03/28 -Product Lot Number [id number] -Percent Used 100 -Lot number of Saline Used [id number] -Bleeding Controlled with NA,Pressure -Treatment Response Procedure [...] Recorded Date Recorded By Document 04/19/23 11:45 [facility] [id number] 04/19/23 11:46 BMF 04/19/23 11:45 Wound Care [...] 1233 <Electronically signed by Mariela Martines NP ELEVATOR INSPECTOR-C> Cosigner Signature (if applicable): CC: ~ Signed [facility] Work Phone: 1(674) 431-578207-26-2023 Progress note Author Mariela Martines [facility] March 29, 2023 12:10pm Note Date/Time March 29, 2023 12:1 0pm [facility] [address] [place] [address] Progress Note - Wound Care 03/29/23 1209 MR#: [id number] Acct: [id number] Name: MARY ALICE GA Rep #:[id number] : 1950 72 From: Mariela Martines ELEVATOR INSPECTOR ELEVATOR INSPECTOR-C PCP: Dr. Khanh Rodriguez MD Status:R EG RCR Location: History of Present Illness Date of Service: 03/29/23 Chief Complaint: Follow-up on her right lower leg lateral area wound nonhealing since at least November. History of Wound: 72-year-old white female in [place] where she is living duringthe winter. She [...] Date Recorded By Document 03/15/23 09:26 DL [id number] 03/15/23 09:37 DL Document 03/22/23 10:37 RB [id number] 03/22/23 10:38 RB Document 03/29/23 11:11 RB [id number] 03/29/23 11:15 RB 03/15/23 03/22/23 03/29/23 09:26 10:37 11:11 WC - Today's Visit Information Type of service Follow-up Visit Follow-up Visit Follow-up Visit (Physician/FURNITURE UPHOLSTERER APPRENTICE (Physician/FURNITURE UPHOLSTERER APPRENTICE (Physician/FURNITURE UPHOLSTERER APPRENTICE ) ) ) Arrival Mode Ambulatory,Cane Ambulatory [...] Date Recorded By Document 03/15/23 09:26 DL [id number] 03/15/23 09:37 DL Document 03/22/23 10:37 RB [id number] 03/22/23 10:38 RB Document 03/29/23 11:11 RB [id number] 03/29/23 11:15 RB 03/15/23 03/22/23 03/29/23 09:26 10:37 11:11 Wound Center Nurse 1 2. R forearm -Current Size (cm) - Length 0 -Current Size (cm) - Width 0 -Current Size (cm) - Depth 0 -Total Square Cm 0 -Photo Taken Yes -Exudate Amt None Present -Wound Margin Indistinct, Non -Visible -Granulation Amt Large (67-100%) -Granulation Quality Tow[place] -Necrosis Amt None Present (0 %) -Structure [...] Medium (34-66%) Medium (34-66%) -Granulation Quality Red Tow[place] Tow[place] -Slough/Fibrin Yes Yes -Necrosis Amt Medium (34-66%) [...] Date Recorded By Document 03/15/23 09:55 MW [id number] 03/15/23 10:02 MW Document 03/22/23 10:59 MW [id number] 03/22/23 11:04 MW Document 03/29/23 11:25 MW [id number] 03/29/23 11:27 MW 03/15/23 03/22/23 03/29/23 09:55 [...] -Expiration Date 12/04/27 11/03/27 -Product Lot Number [id number] -Percent Used 100 100 -Lot number of Saline Used [id number] -Bleeding Controlled with Pressure Pressure -Treatment Response [...] Date Recorded By Document 03/15/23 10:02 MW [id number] 03/15/23 10:02 MW Edit Result 03/15/23 10:02 MW (1) [id number] 03/15/23 10:03 MW Edit Result 03/15/23 10:02 MW (2) [id number] 03/15/23 10:04 MW Document 03/22/23 11:16 RB [id number] 03/22/23 11:17 RB Document 03/29/23 11:27 MW [id number] 03/29/23 11:28 MW (1) Right - Compression [...] 1210 <Electronically signed by Mariela Martines NP ELEVATOR INSPECTOR-C> Cosigner Signature (if applicable): CC: ~ Signed [facility] Work Phone: 1(636) 146-836407-19-2023 Progress note Author Mariela Martines [facility] March 22, 2023 11:56am Note Date/Time March 22, 2023 11:5 6am [facility] [address] [place] [address] Progress Note - Wound Care 03/22/23 1153 MR#: [id number] Acct: [id number] Name: MARY ALICE GA Rep #:[id number] : 1950 72 From: Mariela Martines NP ELEVATOR INSPECTOR-C PCP: Dr. Khanh Rodriguez MD Status:R [facility] Location: History of Present Illness Date of Service: 03/22/23 Chief Complaint: Follow-up on her right lower leg lateral area wound nonhealing since at least November. History of Wound: 72-year-old white female in [place] where she is living duringthe winter. She [...] Date Recorded By Document 03/15/23 09:26 DL [id number] 03/15/23 09:37 DL Document 03/22/23 10:37 RB [id number] 03/22/23 10:38 RB 03/15/23 03/22/23 09:26 10:37 WC - Today's Visit Information Type of service Follow-up Visit Follow-up Visit (Physician/FURNITURE UPHOLSTERER APPRENTICE (Physician/FURNITURE UPHOLSTERER APPRENTICE ) ) Arrival Mode Ambulatory,Cane Ambulatory Transfer [...] Date Recorded By Document 03/15/23 09:26 DL [id number] 03/15/23 09:37 DL Document 03/22/23 10:37 RB [id number] 03/22/23 10:38 RB 03/15/23 03/22/23 09:26 10:37 Wound Center Nurse 1 2. R forearm -Current Size (cm) - Length 0 -Current Size (cm) - Width 0 -Current Size (cm) - Depth 0 -Total Square Cm 0 -Photo Taken Yes -Exudate Amt None Present -Wound Margin Indistinct, Non -Visible -Granulation Amt Large (67-100%) -Granulation Quality [place] -Necrosis Amt None Present (0 %) -Structure [...] Medium (34-66%) Medium (34-66%) -Granulation Quality Red [place] -Slough/Fibrin Yes -Necrosis Amt Medium (34-66%) Medium [...] Date Recorded By Document 03/15/23 09:55 MW [id number] 03/15/23 10:02 MW Document 03/22/23 10:59 MW [id number] 03/22/23 11:04 MW 03/15/23 03/22/23 09:55 10:59 [...] -Expiration Date 12/04/27 11/03/27 -Product Lot Number [id number] -Percent Used 100 100 -Lot number of Saline Used [id number] -Bleeding Controlled with Pressure Pressure -Treatment Response [...] Date Recorded By Document 03/15/23 10:02 MW [id number] 03/15/23 10:02 MW Edit Result 03/15/23 10:02 MW (1) [id number] 03/15/23 10:03 MW Edit Result 03/15/23 10:02 MW (2) [id number] 03/15/23 10:04 MW Document 03/22/23 11:16 RB [id number] 03/22/23 11:17 RB (1) Right - Compression [...] 1156 <Electronically signed by Mariela Martines NP ELEVATOR INSPECTOR-C> Cosigner Signature (if applicable): CC: ~ Signed [facility] Work Phone: 1(644) 496-450107-12-2023 Progress note Author Mariela Martines [facility] March 15, 2023 12:30pm Note Date/Time March 15, 2023 12:3 0pm [facility] [address] [place] [address] Progress Note - Wound Care 03/15/23 1225 MR#: [id number] Acct: [id number] Name: MARY ALICE GA Rep #:[id number] : 1950 72 From: Mariela Martines NP ELEVATOR INSPECTOR-C PCP: Dr. Khanh Rodriguez MD Status:R EG RCR Location: History of Present Illness Date of Service: 03/15/23 Chief Complaint: Follow-up on her right lower leg lateral area wound nonhealing since at least November. History of Wound: 72-year-old white female in [place] where she is living duringthe winter. She [...] Date Recorded By Document 03/15/23 09:26 DL [id number] 03/15/23 09:37 DL 03/15/23 09:26 - Today's Visit Information Type of service Follow-up Visit (Physician/FURNITURE UPHOLSTERER APPRENTICE ) Arrival Mode Ambulatory,Cane Transfer Assistance None [...] Date Recorded By Document 03/15/23 09:26 DL [id number] 03/15/23 09:37 DL 03/15/23 09:26 Wound Center Nurse 1 2. R forearm -Current Size (cm) - Length 0 -Current Size (cm) - Width 0 -Current Size (cm) - Depth 0 -Total Square Cm 0 -Photo Taken Yes -Exudate Amt None Present -Wound Margin Indistinct, Non -Visible -Granulation Amt Large (67-100%) -Granulation Quality [place] -Necrosis Amt None Present (0 %) -Structure Exposed N/A -Texture (Elif-wound Skin Appearance) Scarring -Moisture (Elif-wound Skin Appearance) No Abnormality -Color (Elfi-wound Skin Appearance) No Abnormality -Temperature (Elif-wound Skin [...] Date Recorded By Document 03/15/23 09:55 MW [id number] 03/15/23 10:02 MW 03/15/23 09:55 Wound Center [...] Mesh -Expiration Date 12/04/27 -Product Lot Number [id number] -Percent Used 100 -Lot number of Saline Used [id number] -Bleeding Controlled with Pressure -Treatment Response Procedure [...] Date Recorded By Document 03/15/23 10:02 MW [id number] 03/15/23 10:02 MW Edit Result 03/15/23 10:02 MW (1) [id number] 03/15/23 10:03 MW Edit Result 03/15/23 10:02 MW (2) [id number] 03/15/23 10:04 MW (1) Right - Compression [...] Cosigner Signature (if applicable): CC: ~ Signed [facility] Work Phone: 1(193) 343-609206-28-2023 Progress note Author Mariela Martines [facility] March 01, 2023 11:32am Note Date/Time March 01, 2023 11:3 2am [facility] [address] [place] [address] Progress Note - Wound Care 03/01/23 1124 MR#: [id number] Acct: [id number] Name: MARY ALICE GA Rep #:[id number] : 1950 72 From: Mariela Martines NP, NP-C PCP: Dr. Khanh Rodriguez MD Status:R EG RCR Location: History of Present Illness Date of Service: 03/01/23 Chief Complaint: Follow-up on her right lower leg lateral area wound nonhealing since at least November. History of Wound: 72-year-old white female in [place] where she is living duringthe winter. She [...] because going down to her cabin in [facility] for 2 weeks. Objective Data [...] Recorded Date Recorded By Document 02/08/23 11:07 [facility] [id number] 02/08/23 11:13 [facility] Document 02/15/23 09:30 RB [id number] 02/15/23 09:34 RB Document 02/22/23 09:56 RB [id number] 02/22/23 09:59 RB Document 03/01/23 09:39 [facility] [id number] 03/01/23 09:52 BMF 02/08/23 02/15/23 02/22/23 11:07 09:30 09:56 WC - Today's Visit Information Type of service Follow-up Visit Follow-up Visit Follow-up Visit (Physician/FURNITURE UPHOLSTERER APPRENTICE (Physician/FURNITURE UPHOLSTERER APPRENTICE (Physician/FURNITURE UPHOLSTERER APPRENTICE ) ) ) Arrival Mode Ambulatory Ambulatory [...] Visit Information Type of service Follow-up Visit (Physician/FURNITURE UPHOLSTERER APPRENTICE ) Arrival Mode Ambulatory,Cane Transfer Assistance None [...] Recorded Date Recorded By Document 02/08/23 11:07 [facility] [id number] 02/08/23 11:13 [facility] Document 02/15/23 09:30 RB [id number] 02/15/23 09:34 RB Document 02/22/23 09:56 RB [id number] 02/22/23 09:59 RB Document 03/01/23 09:39 [facility] [id number] 03/01/23 09:52 [facility] 02/08/23 02/15/23 02/22/23 11:07 09:30 09:56 [...] Attached -Granulation Amt Medium (34-66%) -Granulation Quality [place] -Slough/Fibrin Yes -Necrosis Amt Medium (34-66%) -Necrotic [...] Medium (34-66%) Medium (34-66%) -Granulation Quality Red [place] -Slough/Fibrin Yes Yes Yes -Necrosis Amt Large [...] 02/08/23 11:30 MW Document 02/15/23 09:37 MW [id number] 02/15/23 09:45 MW Document 02/22/23 10:12 MW [id number] 02/22/23 10:24 MW 02/08/23 02/15/23 02/22/23 11:20 [...] Date 12/03/25 12/04/27 12/04/27 -Product Lot Number [id number] -Percent Used 100 100 100 -Lot number of Saline Used [id number] -Bleeding Controlled with Pressure Pressure Pressure -Treatment [...] 02/08/23 11:31 MW Document 02/15/23 09:52 RB [id number] 02/15/23 09:53 RB Document 02/22/23 10:39 MW [id number] 02/22/23 10:40 MW 02/08/23 02/15/23 02/22/23 11:30 [...] 1132 <Electronically signed by Mariela Martines NP ELEVATOR INSPECTOR-C> Cosigner Signature (if applicable): CC: ~ Signed [facility] Work Phone: 1(527) 375-998906-21-2023 Progress note Author Mariela Martines [facility] February 22, 2023 11:34am Note Date/Time February 22, 2023 11:3 4am [facility] [address] [place] [address] Progress Note - Wound Care 02/22/23 1125 MR#: [id number] Acct: [id number] Name: MARY ALICE GA Rep #:[id number] : 1950 72 From: Mariela Martines NP ELEVATOR INSPECTOR-C PCP: Dr. Khanh Rodriguez MD Status:R EG RCR Location: History of Present Illness Date of Service: 02/22/23 Chief Complaint: Follow-up on her right lower leg lateral area wound nonhealing since at least November. History of Wound: 72-year-old white female in [place] where she is living duringthe winter. She [...] burning arm pain and soreness been using xzir-ebj-qbcnlwm antibiotic ointment on it and wrapping Objective [...] Recorded Date Recorded By Document 02/08/23 11:07 [facility] [id number] 02/08/23 11:13 [facility] Document 02/15/23 09:30 [id number] 02/15/23 09:34 Document 02/22/23 09:56 [id number] 02/22/23 09:59 RB 02/08/23 02/15/23 02/22/23 11:07 09:30 09:56 - Today's Visit Information Type of service Follow-up Visit Follow-up Visit Follow-up Visit (Physician/FURNITURE UPHOLSTERER APPRENTICE (Physician/FURNITURE UPHOLSTERER APPRENTICE (Physician/FURNITURE UPHOLSTERER APPRENTICE ) ) ) Arrival Mode Ambulatory Ambulatory [...] Recorded Date Recorded By Document 02/08/23 11:07 [facility] [id number] 02/08/23 11:13 [facility] Document 02/15/23 09:30 RB [id number] 02/15/23 09:34 RB Document 02/22/23 09:56 RB [id number] 02/22/23 09:59 RB 02/08/23 02/15/23 02/22/23 11:07 [...] Attached -Granulation Amt Medium (34-66%) -Granulation Quality [place] -Slough/Fibrin Yes -Necrosis Amt Medium (34-66%) -Necrotic [...] Medium (34-66%) Medium (34-66%) -Granulation Quality Red [place] -Slough/Fibrin Yes Yes Yes -Necrosis Amt Large [...] 02/08/23 11:30 MW Document 02/15/23 09:37 MW [id number] 02/15/23 09:45 MW Document 02/22/23 10:12 MW [id number] 02/22/23 10:24 MW 02/08/23 02/15/23 02/22/23 11:20 [...] Date 12/03/25 12/04/27 12/04/27 -Product Lot Number [id number] 023 -Percent Used 100 100 100 -Lot number of Saline Used [id number] -Bleeding Controlled with Pressure Pressure Pressure -Treatment [...] 02/08/23 11:31 MW Document 02/15/23 09:52 RB [id number] 02/15/23 09:53 RB Document 02/22/23 10:39 MW [id number] 02/22/23 10:40 MW 02/08/23 02/15/23 02/22/23 11:30 [...] 1134 <Electronically signed by Mariela Martines NP ELEVATOR INSPECTOR-C> Cosigner Signature (if applicable): CC: ~ Signed [facility] Work Phone: 1(935) 842-952406-14-2023 Progress note Author Mariela Martines [facility] February 15, 2023 9:59am Note Date/Time February 15, 2023 9:59 am [facility] [address] [place] [address] Progress Note - Wound Care 02/15/23 0956 MR#: [id number] Acct: [id number] Name: MARY ALICE GA Rep #:[id number] : 1950 72 From: Mariela Martines NP ELEVATOR INSPECTOR-C PCP: Dr. Khanh Rodriguez MD Status:R EG RCR Location: History of Present Illness Date of Service: 02/15/23 Chief Complaint: Follow-up on her right lower leg lateral area wound nonhealing since at least November. History of Wound: 72-year-old white female in [place] where she is living duringthe winter. She [...] Recorded Date Recorded By Document 02/08/23 11:07 [facility] [id number] 02/08/23 11:13 [facility] Document 02/15/23 09:30 RB [id number] 02/15/23 09:34 RB 02/08/23 02/15/23 11:07 09:30 - Today's Visit Information Type of service Follow-up Visit Follow-up Visit (Physician/FURNITURE UPHOLSTERER APPRENTICE (Physician/FURNITURE UPHOLSTERER APPRENTICE ) ) Arrival Mode Ambulatory Ambulatory Transfer [...] Recorded Date Recorded By Document 02/08/23 11:07 [facility] [id number] 02/08/23 11:13 [facility] Document 02/15/23 09:30 RB [id number] 02/15/23 09:34 RB 02/08/23 02/15/23 11:07 09:30 [...] Small (1-33%) Medium (34-66%) -Granulation Quality [place] -Slough/Fibrin Yes Yes -Necrosis Amt Large (67-100%) [...] 02/08/23 11:30 MW Document 02/15/23 09:37 MW [id number] 02/15/23 09:45 MW 02/08/23 02/15/23 11:20 09:37 [...] -Expiration Date 12/03/25 12/04/27 -Product Lot Number [id number] -Percent Used 100 100 -Lot number of Saline Used [id number] -Bleeding Controlled with Pressure Pressure -Treatment Response [...] 02/08/23 11:31 MW Document 02/15/23 09:52 RB [id number] 02/15/23 09:53 RB 02/08/23 02/15/23 11:30 09:52 [...] 0959 <Electronically signed by Mariela Martines NP ELEVATOR INSPECTOR-C> Cosigner Signature (if applicable): CC: ~ Signed [facility] Work Phone: 1(844) 686-317006-07-2023 Progress note Author Mariela Martines [facility] February 08, 2023 11:53am Note Date/Time February 08, 2023 11:53 am [facility] [address] [place] [address] Progress Note - Wound Care 02/08/23 1149 MR#: [id number] Acct: [id number] Name: MARY ALICE GA Rep #:[id number] : 1950 72 From: Mariela aMrtines NP ELEVATOR INSPECTOR-C PCP: Dr. Khanh Rodriguez MD Status:R EG RCR Location: History of Present Illness Date of Service: 02/08/23 Chief Complaint: Follow-up on her right lower leg lateral area wound nonhealing since at least November. History of Wound: 72-year-old white female in [place] where she is living duringthe winter. She [...] Recorded Date Recorded By Document 02/08/23 11:07 [facility] [id number] 02/08/23 11:13 [facility] 02/08/23 11:07 - Today's Visit Information Type of service Follow-up Visit (Physician/FURNITURE UPHOLSTERER APPRENTICE ) Arrival Mode Ambulatory Transfer Assistance None [...] Recorded Date Recorded By Document 02/08/23 11:07 [facility] [id number] 02/08/23 11:13 [facility] 02/08/23 11:07 Wound Center Nurse 1 [...] Mesh -Expiration Date 12/03/25 -Product Lot Number [id number] -Percent Used 100 -Lot number of Saline Used [id number] -Bleeding Controlled with Pressure -Treatment Response Procedure [...] 1153 <Electronically signed by Mariela Martines NP ELEVATOR INSPECTOR-C> Cosigner Signature (if applicable): CC: ~ Signed [facility] Work Phone: 1(479) 108-938905-31-2023 Progress note Author Mariela Martines [facility] February 01, 2023 12:26pm Note Date/Time February 01, 2023 12:26 pm [facility] [address] [place] [id number] Progress Note - Wound Care 02/01/23 1222 MR#: [id number] Acct: [id number] Name: MARY ALICE GA Rep #:[id number] : 1950 72 From: Mariela Martines NP ELEVATOR INSPECTOR-C PCP: Dr. Khanh Rodriguez MD Status:R EG RCR Location: History of Present Illness Date of Service: 02/01/23 Chief Complaint: Follow-up on her right lower leg lateral area wound nonhealing since at least November. History of Wound: 72-year-old white female in [place] where she is living duringthe winter. She [...] Recorded Date Recorded By Document 01/25/23 09:15 [facility] [id number] 01/25/23 09:39 [facility] Document 02/01/23 11:13 [facility] [id number] 02/01/23 11:20 [facility] 01/25/23 02/01/23 09:15 11:13 - Today's Visit Information Type of service Initial Visit Follow-up Visit (Physician/FURNITURE UPHOLSTERER APPRENTICE ) Arrival Mode Ambulatory,Cane Ambulatory Transfer Assistance [...] Bottom <Entered> (a) Communication Assessment Preferred language Kyrgyz Visualizer Required No Able to Read Yes Able [...] in Ability to Perform Denies Any Declines Culture/Taoism/Mud Mill Tender Cultural/Taoism Needs that may affect No Treatment Plan Teaching: Wound Center *Welcome to the Wound Center -Person Taught Patient -Teaching Method Discussion -Response to teaching Verbalize understanding Welcome to the Wound Care Center Indian (a) 1 - + WC - Nurse 1 - General Ulcer Measurement Start: 01/25/23 09:11 Freq: Status: Active Protocol: Activity Type Activity Date Activity User E-sign Co-sign Detail Recorded Client Recorded Date Recorded By Document 01/25/23 09:15 [facility] [id number] 01/25/23 09:39 BM Document 02/01/23 11:13 [facility] [id number] 02/01/23 11:20 BMF 01/25/23 02/01/23 09:15 11:13 [...] Date Recorded By Document 01/25/23 09:55 MW [id number] 01/25/23 10:02 MW Document 02/01/23 11:28 MW [id number] 02/01/23 11:32 MW 01/25/23 02/01/23 09:55 11:28 [...] Date Recorded By Document 01/25/23 10:42 RB [id number] 01/25/23 10:43 RB Document 02/01/23 11:32 MW [id number] 02/01/23 11:38 MW 01/25/23 02/01/23 10:42 11:32 [...] 1226 <Electronically signed by Mariela Martines NP ELEVATOR INSPECTOR-C> Cosigner Signature (if applicable): CC: ~ Signed [facility] Work Phone: 1([phone]) 456-177205-24-2023 History and physical note Author Mariela Martines [facility] January 25, 2023 12:44pm Note Date/Time January 25, 2023 12:44 pm [facility] [address] [place] [address] H&P Exam - Wound Care 01/25/23 1234 MR#: [id number] Acct: [id number] Name: MARY ALICE GA Rep #:[id number] : 1950 72 From: Mariela Martines NP ELEVATOR INSPECTOR-C PCP: Dr. Khanh Rodriguez MD Status:R EG RCR Location: History of Present Illness Date of Service: 01/25/23 Chief Complaint: Follow-up on her right lower leg lateral area wound nonhealing since at least November. History of Wound: 72-year-old white female in [place] where she is living duringthe winter. She [...] Allergy Mild Other Verified 01/25/23 09:43 [From [facility]] Family History Mother Heart disease Father [...] Recorded Date Recorded By Document 01/25/23 09:15 [facility] [id number] 01/25/23 09:39 [facility] 01/25/23 09:15 - Today's Visit Information [...] Bottom <Entered> (a) Communication Assessment Preferred language Kyrgyz Visualizer Required No Able to Read Yes Able [...] in Ability to Perform Denies Any Declines Culture/Taoism/Mud Mill Tender Cultural/Taoism Needs that may affect No Treatment Plan Teaching: Wound Center *Welcome to the Wound Center -Person Taught Patient -Teaching Method Discussion -Response to teaching Verbalize understanding Welcome to the Wound Care Center Indian (a) 1 - + WC - Nurse 1 - General Ulcer Measurement Start: 01/25/23 09:11 Freq: Status: Active Protocol: Activity Type Activity Date Activity User E-sign Co-sign Detail Recorded Client Recorded Date Recorded By Document 01/25/23 09:15 [facility] [id number] 01/25/23 09:39 [facility] 01/25/23 09:15 Wound Center Nurse 1 [...] Date Recorded By Document 01/25/23 09:55 MW [id number] 01/25/23 10:02 MW 01/25/23 09:55 Wound Center [...] Date Recorded By Document 01/25/23 10:42 RB [id number] 01/25/23 10:43 RB 01/25/23 10:42 Wound Care [...] Cosigner Signature (if applicable): CC: ~ Signed [facility] Work Phone: 1(970) 695-797809-07-2021 History of Present illness Narrative* Encounter Date [...] are heavy and painful.Has vascular clinic in [place] she would like to be referred to [...] notes she is going to go to [place] for this; just had surgery at the [facility]2. Hypertension stable; continue current medications3.Hypokalemia pt [...] mobility. Pertinent negatives include bruising and crepitus. [facility] Work Phone: 1([phone]) [phone] Instructions* Date Instruction Additional Infor alvin Counseled on weight reduction Counseled on dietary changes [facility] Work Phone: consult note* Clinical Note Date No Information [facility] Work Phone: Discharge summary* Clinical Note Date No Information [facility] Work Phone: Discharge summary Author Harrison Roper [facility] December 30, 2023 1:45pm Note Date/Time December 30, 2023 1:3 0pm [facility] Medical Records Department [address] [place] [address] Discharge Summary 12/30/23 1330 MR#: [id number] Acct: [id number] Name: MARY ALICE GA Rep #:[id number] : 1950 73 From: Harrison Hughes PCP: Dr. Khanh Rodriguez MD Status:A DM IN Location: [place] [address]- Providers Date of Admission: 12/27/23 Date of Discharge: 12/30/23 Primary Care Physician: Dr. Khanh Rodriguez MD Consultations 12/27/23 14:09 Consult: Gastroenterology Routine Consulting Provider: [facility] Reason for Consult: GI bleed, portal hypertension cirrhosis EMERGENT Consult: No MD Notified: Yes Date Notified: 12/27/23 Time Notified: 12:36 Method of Notification: ED Physician Initiated 12/27/23 15:10 Consult: Onc/Wound/shop mechanic Routine Comment: Reason for Consult:: R ankle [...] of breast cancer: Patient on anastrozole.Patient follows [facility]. On alendronate continued Discharge medication reconciliation [...] or advanced directive. Her is power of collections attorney for health. After discussion of benefits/risks [...] Health Service Charges/Coding Visit Charges Inpatient E&M: 07057 Disch Hosp >30min 12/30/23 1345 <Electronically signed by Harrison Roper MD> Cosigner Signature (if applicable): CC: Dr. Khanh Rodriguez MD; Dr. 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 Vertigo chronic [facility] Work Phone: Evaluation note* Diagnosis Onset Date Resolution Status Age-related physical debility acute Hypotension acute Post-menopausal acute GERD (gastroesophageal reflux disease) chronic Left hip pain chronic 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 Vertigo chronic Hyponatremia acute Osteoporosis acute [facility] Work Phone: Evaluation note* Diagnosis Onset Date Resolution Status Age-related physical debility acute Hypotension acute Post-menopausal acute GERD (gastroesophageal reflux disease) chronic Left hip pain chronic 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 Vertigo chronic Hyponatremia acute Osteoporosis acute Hyponatremia acute Osteoporosis acute Dermatitis chronic GERD (gastroesophageal reflux disease) chronic Hypertension chronic [facility] Work Phone: Evaluation note* Diagnosis Pain- Primary [facility]ized [facility] Diagnosis Onset Date Resolution Status Cellulitis of right leg acut e Screening for thyroid disorder acute Ulcer of right leg acute Dermatitis chronic Hypertension chronic Osteoporosis chronic Edema of both lower extremities acute Ulcer of right leg acute 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 [facility] Work Phone: Evaluation note* Diagnosis Onset Date [...] 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 [facility] Work Phone: Evaluation note* Diagnosis Onset Date [...] 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 [facility] Work Phone: Evaluation note* Diagnosis Onset Date [...] 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 [facility] Work Phone: Evaluation note* Diagnosis Onset Date [...] skin cancer ch ronic Umbilical hernia chronic [facility] Work Phone: Evaluation note* Diagnosis Onset Date [...] acute Edema of both lower extremities chronic [facility] Work Phone: Evaluation note* Diagnosis Onset Date [...] ronic Umbilical hernia chronic Back pain noneactive [facility] Work Phone: Evaluation note* Diagnosis Onset Date [...] lower extremities chronic Preoperative evaluation to r [facility] out surgical contraindication acute Edema of both [...] ronic Umbilical hernia chronic Back pain noneactive [facility] Work Phone: Evaluation note* Diagnosis Onset Date [...] acut e Cirrhosis acute Umbilical hernia chronic [facility] Work Phone: Evaluation note* Diagnosis Onset Date [...] leg acute Venous ulcer of ankle acute [facility] Work Phone: Evaluation note* Diagnosis Onset Date [...] lower extremity 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 [facility] Work Phone: Evaluation note* Diagnosis Onset Date [...] leg acute Venous ulcer of ankle acute [facility] Work Phone: Evaluation note* Diagnosis Onset Date [...] lower extremity 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 [facility] Work Phone: Evaluation note* Diagnosis Onset Date [...] Venous insufficiency of right lower extremity acute [facility] Work Phone: Evaluation note* Diagnosis Onset Date [...] lower extremity 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 [facility] Work Phone: Evaluation note* Diagnosis Onset Date [...] Venous insufficiency of right lower extremity chronic [facility] Work Phone: Evaluation note* Diagnosis Onset Date [...] Venous insufficiency of right lower extremity chronic [facility] Work Phone: Evaluation note* Diagnosis Onset Date [...] lower extremity chronic Alcoholic acute Diarrhea acute [facility] Work Phone: Evaluation note* Diagnosis Onset Date [...] Venous insufficiency of right lower extremity chronic [facility] Work Phone: Evaluation note* Diagnosis Onset Date [...] hepatic cirrhosis acute Jaundice acute Thrombocytopenia acute [facility] Work Phone: Evaluation note* Diagnosis Onset Date [...] hepatic cirrhosis acute Jaundice acute Thrombocytopenia acute [facility] Work Phone: Evaluation note* Diagnosis Onset Date [...] chronic Acute upper GI bleeding reso lved [facility] Work Phone: Evaluation note* Diagnosis Other malaise- [facility] Diagnosis Other [facility]ise- [facility] Other malaise- Primary [facility] Diagnosis Other malaise- Primary [facility] Diagnosis Other malaise- Primary [facility] Diagnosis Venous ulcer (HCC) Chronic ulcer of unspecified site Venous (peripheral) insufficiency Unspecified venous (peripheral) insufficiency Secondary lymphedema Other lymphedema [facility] Diagnosis Venous ulcer (HCC)- Primary Chronic ulcer of unspecified site Venous (peripheral) insufficiency Unspecified venous (peripheral) insufficiency Secondary lymphedema Other lymphedema [facility] Diagnosis Other malaise- Primary [facility] Diagnosis Venous ulcer (HCC)- Primary Chronic ulcer of unspecified site Venous (peripheral) insufficiency Unspecified venous (peripheral) insufficiency Secondary lymphedema Other lymphedema [facility] Diagnosis Other malaise- Primary [facility] Diagnosis Other malaise- Primary [facility] Diagnosis Venous ulcer (HCC)- Primary Chronic ulcer of unspecified site Venous (peripheral) insufficiency Unspecified venous (peripheral) insufficiency Secondary lymphedema Other lymphedema Symptomatic varicose veins of both lower extremities Varicose veins of lower extremities with other complications [facility] Diagnosis Venous ulcer (HCC)- Primary Chronic ulcer of unspecified site Venous (peripheral) insufficiency Unspecified venous (peripheral) insufficiency Secondary lymphedema Other lymphedema documented in this encounter [facility] note* Diagnosis Other malaise- Primary [facility] Diagnosis S/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 Degenerative scoliosis [facility] Diagnosis Venous ulcer (HCC)- Primary Chronic ulcer of unspecified site Venous (peripheral) insufficiency Unspecified venous (peripheral) insufficiency Secondary lymphedema Other lymphedema [facility] Diagnosis Other malaise- Primary [facility] Diagnosis Venous ulcer (HCC)- Primary Chronic ulcer of unspecified site Venous (peripheral) insufficiency Unspecified venous (peripheral) insufficiency Secondary lymphedema Other lymphedema [facility] Diagnosis Other malaise- Primary [facility] Diagnosis Venous ulcer (HCC)- Primary Chronic ulcer of unspecified site Venous (peripheral) insufficiency Unspecified venous (peripheral) insufficiency Secondary lymphedema Other lymphedema [facility] Diagnosis Venous ulcer (HCC)- Primary Chronic ulcer of unspecified site Venous (peripheral) insufficiency Unspecified venous (peripheral) insufficiency Secondary lymphedema Other lymphedema [facility] Diagnosis Pain in left hip Pain in joint, pelvic region and thigh [facility] Diagnosis Venous (peripheral) insufficiency Unspecified venous (peripheral) insufficiency Symptomatic varicose veins of both lower extremities Varicose veins of lower extremities with other complications [facility] Diagnosis Venous ulcer (HCC)- Primary Chronic ulcer of unspecified site Venous (peripheral) insufficiency Unspecified venous (peripheral) insufficiency [facility] Diagnosis Venous ulcer (HCC)- Primary Chronic ulcer of unspecified site Venous (peripheral) insufficiency Unspecified venous (peripheral) insufficiency Secondary lymphedema Other lymphedema [facility] Diagnosis Venous ulcer (HCC)- Primary Chronic ulcer of unspecified site Venous (peripheral) insufficiency Unspecified venous (peripheral) insufficiency Secondary lymphedema Other lymphedema [facility] Diagnosis Degenerative scoliosis- Primary [facility] Diagnosis Venous ulcer (HCC)- Primary Chronic ulcer of unspecified site Venous (peripheral) insufficiency Unspecified venous (peripheral) insufficiency Secondary lymphedema Other lymphedema documented in this encounter [facility] note* Diagnosis Venous ulcer (HCC)- Primary Chronic ulcer of unspecified site Venous (peripheral) insufficiency Unspecified venous (peripheral) insufficiency Secondary lymphedema Other lymphedema documented in this encounter [facility] note* Diagnosis Venous ulcer (HCC)- Primary Chronic ulcer of unspecified site Venous (peripheral) insufficiency Unspecified venous (peripheral) insufficiency Secondary lymphedema Other lymphedema [facility] Diagnosis Venous ulcer (HCC)- Primary Chronic ulcer of unspecified site Venous (peripheral) insufficiency Unspecified venous (peripheral) insufficiency Secondary lymphedema Other lymphedema documented [facility] Diagnosis Venous ulcer (HCC)- Primary Chronic ulcer of unspecified site documented [facility]* Diagnosis Venous ulcer (HCC)- Primary Chronic ulcer of unspecified site documented in this encounter [facility] note* Diagnosis Venous ulcer of right lower extremity with varicose veins (HCC)- Primary Varicose veins of lower extremities with ulcer Venous ulcer (HCC) Chronic ulcer of unspecified site [facility]* Diagnosis Venous ulcer (HCC)- Primary Chronic ulcer of unspecified site [facility] Diagnosis Venous ulcer (HCC)- Primary Chronic ulcer of unspecified site [facility] Diagnosis Pseudomonas aeruginosa infection- Primary Pseudomonas infection in conditions classified elsewhere and of unspecified site Venous ulcer (HCC) Chronic ulcer of unspecified site Alcoholic cirrhosis of liver with ascites (HCC) Alcoholic cirrhosis of liver Anxiety Anxiety state, unspecified Infection Unspecified infectious and parasitic diseases documented in this encounter [facility] note* Diagnosis Venous ulcer (HCC)- Primary Chronic ulcer of unspecified site [facility] Diagnosis Abrasion of left lower leg with infection, initial encounter- Primary [facility] Diagnosis Venous ulcer (HCC)- Primary Chronic ulcer of unspecified site documented in this encounter [facility] note* Diagnosis Venous ulcer (HCC)- Primary Chronic ulcer of unspecified site [facility] [facility] Diagnosis Pseudomonas aeruginosa infection- Primary Pseudomonas infection in conditions classified elsewhere and of unspecified site Venous ulcer (HCC) Chronic ulcer of unspecified site Alcoholic cirrhosis of liver with ascites (HCC) Alcoholic cirrhosis of liver Anxiety Anxiety state, unspecified Umbilical hernia without obstruction or gangrene Umbilical hernia without mention of obstruction or gangrene [facility] Diagnosis Venous ulcer (HCC)- Primary Chronic ulcer of unspecified site [facility]* Diagnosis Venous ulcer (HCC)- Primary Chronic ulcer of unspecified site documented [facility]* Diagnosis Venous ulcer (HCC)- Primary Chronic ulcer of unspecified site documented [facility]* Diagnosis Spinal stenosis of lumbar region with neurogenic claudication- Primary Spinal stenosis, lumbar region, with neurogenic claudication Low back pain, unspecified back pain laterality, unspecified chronicity, unspecified whether sciatica present [facility]* Diagnosis Venous ulcer (HCC)- Primary Chronic ulcer of unspecified site [facility]* Diagnosis Venous stasis ulcer of calf with fat layer exposed, unspecified laterality, unspecified whether varicose veins present (HCC)- Primary Venous ulcer (HCC) Chronic ulcer of unspecified site [facility] Note Date No Information [facility] Work Phone: History and physical note Author Harrison Roper [facility] December 27, 2023 1:37pm Note Date/Time December 27, 2023 1:3 1pm [facility] Medical Records Department [address] [place] [address] H&P Exam - Hospitalist 12/27/23 1317 MR#: [id number] Acct: [id number] Name: MARY ALICE GA Rep #:[id number] : 1950 73 From: Harrison Hughes PCP: Dr. Khanh Rodriguez MD Status:A DM IN Location: [address] 1 HPI - General General Date [...] or pattern drinking alcohol even on asking. [facility] Medical History Abnormal mammogram of left [...] Sl. Cloudy, Urine pH 7.0, Ur Specific Liberal 1.005, Urine Protein 15 H, Urine Glucose [...] (Auto) 73.0 H, Lymph % (Auto) 19.2, [place] % (Auto) 6.7, Eos % (Auto) 0.4, [...] of breast cancer: Patient on anastrozole.Patient follows [facility]. On alendronate continued Living will/advanced directive/end of life care: Patient does not living will or advanced directive. Her is power of collections attorney for health. After discussion of benefits/risks procedures involved with full code, DNR CC arrest and DNR CC, the patient opted for full code. Patient does want artificial life support including intubation, tube feed, ventilator and/chest compression, central venous catheter, vasopressor and DC shock if needed Total time spent in [id number] encounter in discussion of advanced directive 17 minutes. Microbiology Past 72 Hours 12/27/23 09:39 Stool Stool Occult Blood (KENDRA) - Final Occult Blood Positive Laboratory Results 12/27/23 09:25: Urine Color Yellow, Urine Clarity Sl. Cloudy, Urine pH 7.0, Ur Specific Liberal 1.005, Urine Protein 15 H, Urine Glucose [...] (Auto) 73.0 H, Lymph % (Auto) 19.2, [place] % (Auto) 6.7, Eos % (Auto) 0.4, [...] containing fat. Charges/Coding Visit Charges Inpatient E&M: 02734 Init Hosp L3 Procedures Hospitalists Procedures: 41788 Advncd Care Plan 30 Min 12/27/23 1337 <Electronically signed by Harrison Roper MD> Cosigner Signature (if applicable): CC: Dr. Khanh Rodriguez MD; Dr. Harrison Roper MD~ Signed [facility] Work Phone: Hospital Discharge instructionsAmbulatory Orders* Gastroenterology Location: None Selected [facility] Work Phone: Hospital Discharge instructionsAmbulatory Orders* Orthopedics Location: None Selected * Pain Management Location: None Selected [facility] Work Phone: Progress note* Clinical Note Date No Information [facility] Work Phone: Rerplj for referral (narrative)* Reason For Referral No Information [facility] Work Phone: Rergmx for referral (narrative)* Diagnostic Procedure Only (Routine) - Authorized Specialty Diagnoses / Procedures Referred By Contac t Referred To Contact XR IMAGING Diagnoses Pain Procedures XR HIP GENERAL 3V PELV/AP/LAT LEFT RADEX HIP UNILATERAL WITH PELVIS 2-3 VIEWS Yoseph Briones MD [address] [place] [address] Xr Imaging Referral ID Status Reason Start Date Expiration Date Visits Requested Visits Authorized [id number] Authorized Auto-Generat ed Referral 10/18/2022 11/17/2023 1 1 [facility] for referral (narrative)* Outpatient Procedure (Routine) - Authorized Specialty Diagnoses / Procedures [facility] Diagnoses Venous (peripheral) insufficiency Symptomatic varicose veins of both lower extremities Procedures US VENOUS INCOMPETENCY ALBERT VAS LAB DUP-SCAN XTR VEINS COMPLETE BILATERAL STUDY Gt Yin DO [address] [place] [address] [facility] [address] [address] Referral ID Status Reason Start Date Expiration Date Visits Requested Visits Authorized [id number] Authorized Auto-Generat ed Referral 02/27/2024 02/26/2025 1 1 * Physical Therapy (Routine) - Authorized Specialty Diagnoses / Procedures Referred By Contac t Referred To Contact [facility] Diagnoses Venous ulcer (HCC) Venous (peripheral) insufficiency Secondary lymphedema Procedures CONSULT TO PHYSICAL THERAPY PHYSICAL THERAPY EVALUATION HIGH COMPLEX 45 MINS Gt Yin DO [address] [place] [address] [facility] [address] [place] [id number] Referral ID Status Reason Start Date Expiration Date Visits Requested Visits Authorized [id number] Authorized PCP Requested Referral Auto-Generate d Referral 02/27/2024 02/26/[address] [facility] for referral (narrative)* Diagnostic Procedure Only (Routine) - Closed Specialty Diagnoses / Procedures Referred By Contac t Referred To Contact XR IMAGING Diagnoses Pain in left hip Procedures XR HIP 2V AP/LAT LEFT (AK,FL,ME,UN) RADEX HIP UNILATERAL WITH PELVIS 2-3 VIEWS Abdirahman Wright APRN.FURNITURE UPHOLSTERER APPRENTICE [address] [place] [address] [place] [address] Referral ID Status Reason Start Date Expiration Date V isits Requested Visits Authorized [id number] Closed Auto-Generate d Referral 03/13/2024 04/12/[address] [facility] for visit Narrative* Diagnostic Procedure Only (Routine) - Closed Specialty Diagnoses / Procedures Referred By Contac t Referred To Contact XR IMAGING Diagnoses Pain in left hip Procedures XR HIP 2V AP/LAT LEFT (AK,FL,ME,UN) RADEX HIP UNILATERAL WITH PELVIS 2-3 VIEWS Abdirahman Wright APRN.FURNITURE UPHOLSTERER APPRENTICE [address] [place] [address] [place] [address] Referral ID Status Reason Start Date Expiration Date V isits Requested Visits Authorized [id number] Closed Auto-Generate d Referral 03/13/2024 04/12/[address] [facility] for visit Narrative* Outpatient Procedure (Routine) - Closed Specialty Diagnoses / Procedures Referred By Contac t Referred To Contact [facility] Diagnoses Venous (peripheral) insufficiency Symptomatic varicose veins of both lower extremities Procedures US VENOUS INCOMPETENCY ALBERT VAS LAB DUP-SCAN XTR VEINS COMPLETE BILATERAL STUDY Gt Yin, DO [address] [place] [address] [facility] [address] [place] [address] Referral ID Status Reason Start Date Expiration Date V isits Requested Visits Authorized [id number] Closed Auto-Generate d Referral 02/27/2024 02/26/2025 1 1 [facility] Summary Purpose Family History Family Member Type [...] Onset Half brother (M) Problem (finding) malignant alibn plasm of pancreas (Cause Of ) 70 Father Problem (finding) diabetes mellitus type 2 Daughter Problem (finding) Alive and well Brother Problem (finding) Alive and well Father Problem (finding) Heart disease (Cause Of ) 90 Father Problem (finding) congestive hea rt failure (Cause Of ) 90 Mother Problem (finding) dementia Advance Directives Documents on File Type Date Recorded 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 Advance Directives and Living Will Power of Brick Handler Directive Yes / No Effective Date File Name No Information Advance Directive Response Recorded Date/ Time Living Will No June 09 1 12:10pm Power of Brick Handler No June 09 021 12:10pm Advance Directive Response Recorded Date/ Time Living Will No January 20, 2023 1 0:41am Power of Brick Handler No January 20, 2023 10:41am Advance Directive Response Recorded Date/ Time Name of Medical Power of Brick Handler RANJIT GARCIA PRACHI June 12, 2023 2:18pm Living Will Yes June 12 3 2:18pm Power of Brick Handler Yes October 9th, 2 023 2:18pm Advance Directive Response Recorded Date/ Time Name of Medical Power of Brick Handler RANJIT VELARDE June 12, 2023 1:18pm Living Will Yes June 12 1:18pm Power of Brick Handler Yes June 12 023 1:18pm Advance Directive Response Recorded Date/ Time Living Will Yes June 12 1:18pm Power of Brick Handler Yes June 12 2 023 1:18pm Advance Directive Response Recorded Date/ Time Advance Directives No October 8:24am Living Will No October 25, 024 8:24am Power of Brick Handler No October 25, 2023 8:24am Advance Directive Response Recorded Date/ Time Advance Directives on File Yes Neil leigh 2023 11:20am Name of Medical Power of Brick Handler ranjit rizvi October 26, 2023 11:20am Advance Directives Yes October 11:20am Living Will Yes October 26 11:20am Power of Brick Handler Yes October 26, 2023 11:20am Advance Directive Response Recorded Date/ Time Advance Directives on File Yes Neil leigh 2023 12:20pm Name of Medical Power of Brick Handler ranjit rizvi October 26, 2023 12:20pm Advance Directives Yes October 12:20pm Living Will Yes October 26 12:20pm Power of Brick Handler Yes October 26, 2023 12:20pm Advance Directive Response Recorded Date/ Time Advance Directives on File Yes Neil leigh 2023 12:20pm Name of Medical Power of Brick Handler ranjit rizvi October 26, 2023 12:20pm Advance Directives Yes October 12:20pm Living Will No December 27, 2023 10:17am Power of Brick Handler No December 26 10:17am Advance Directive Response Recorded Date/ Time Advance Directives on File Yes Neil leigh 2023 12:20pm Name of Medical Power of Brick Handler ranjit rizvi October 26, 2023 12:20pm Name of Medical Power of Brick Handler Ranjit Ga December 27, 2023 2:18pm Advance Directives Yes October 12:20pm Living Will Yes December 27, 2023 2:18pm Power of Brick Handler Yes December 26 2:18pm Advance Directive Response Recorded Date/ Time Advance Directives Yes December 31, 2 024 3:20pm Living Will Yes January 01, 2024 3:20pm Power of Brick Handler Yes December 31 3:20pm Advance Directives on File Yes Neil leigh 2023 12:20pm Name of Medical Power of Brick Handler ranjit rizvi October 26, 2023 12:20pm Name of Medical Power of Brick Handler Ranjit Ga December 27, 2023 2:18pm Advance Directive Response Recorded Date/ Time Advance Directives Yes December 31, 024 3:20pm Advance Directive Response Recorded Date/ Time Living Will No May 15, 2024 2:03pm Do you have a Healthcare Power of Brick Handler? No May 15, 2024 2:03pm Living Will Yes January 01, 2024 3:20pm Do you have a Healthcare Power of Brick Handler? Yes January 01, 2024 3:20pm Advance Directives Yes January 23 3:15pm Advance Directive Response Recorded Date/ Time Living Will No May 15, 2024 2:03pm Do you have a Healthcare Power of Brick Handler? No May 15, 2024 2:03pm Living Will Yes January 01, 2024 3:20pm Do you have a Healthcare Power of Brick Handler? 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 Reason for Visit Age-related physical debility Hypotension Post-menopausal GERD (gastroesophageal reflux disease) Left hip pain Varicose veins of both lower extremities Vertigo Reason for Referral Specialty Diagnoses / Procedures Referred By Tara bravo Referred To [facility] Diagnoses Degenerative scoliosis Procedures CONSULT TO [facility] OFFICE/OUTPATIENT [facility] 60 MINUTES Marisela Mccarty MD [address] [address] Referral ID Status Reason Start Date Expiration Date Visits Requested Visits Authorized [id number] Authorized PCP Requested Referral 04/02/2024 04/02/2025 1 1 Specialty Diagnoses / Procedures Referred By Contac t Referred To Contact [facility] Diagnoses Degenerative scoliosis Procedures CONSULT TO PHYSICAL THERAPY PHYSICAL THERAPY EVALUATION HIGH COMPLEX 45 MINS Monse Merlos PA-C [address] [place] [address] [facility] [address] [place] [address] Referral ID Status Reason Start Date Expiration Date Visits Requested Visits Authorized [id number] Authorized PCP Requested Referral Auto-Generate d Referral 06/12/2024 06/12/2025 99 99 Additional Source Comments INFORMATION SOURCE (unrecogn ized section and content) DATE CREATED AUTHOR 02/27/2018 [facility] DATE CREATED AUTHOR AUTHOR'S ORGANIZ ATION 07/09/2019 [facility] DATE CREATED AUTHOR AUTHOR'S ORGANIZ ATION 09/20/2019 [facility] DATE CREATED AUTHOR AUTHOR'S ORGANIZ ATION 02/13/[address] [facility] DATE CREATED AUTHOR AUTHOR'S ORGANIZ ATION 05/06/2021 [facility] DATE CREATED AUTHOR AUTHOR'S ORGANIZ ATION 05/16/2024 [facility] DATE CREATED AUTHOR AUTHOR'S ORGANIZ ATION 09/21/2024 [facility] DATE CREATED AUTHOR AUTHOR'S ORGANIZ ATION 05/28/[address] [facility] DATE CREATED AUTHOR AUTHOR'S ORGANIZ ATION 06/06/2025 [facility] Goals (unrecognized section and content) Goals may be documented in a n alternate section Source Comments (unrecognize d section and content) In the event this informatio n is protected by the Federal Confidentiality of Alcohol and Drug Abuse Patient Records regulations: The Federal rules restrict any use of the information to criminally investigate or prosecute any alcohol or drug abuse patient.[facility] the event this information is protected by the Federal Confidentiality of Alcohol and Drug Abuse Patient Records regulations: The Federal rules restrict any use of the information to criminally investigate or prosecute any alcohol or drug abuse patient.[facility] the event this information is protected by the Federal Confidentiality of Alcohol and Drug Abuse Patient Records regulations: The Federal rules restrict any use of the information to criminally investigate or prosecute any alcohol or drug abuse patient.[facility] the event this information is protected by the Federal Confidentiality of Alcohol and Drug Abuse Patient Records regulations: The Federal rules restrict any use of the information to criminally investigate or prosecute any alcohol or drug abuse patient.[facility] the event this information is protected by the Federal Confidentiality of Alcohol and Drug Abuse Patient Records regulations: The Federal rules restrict any use of the information to criminally investigate or prosecute any alcohol or drug abuse patient.[facility] the event this information is protected by the Federal Confidentiality of Alcohol and Drug Abuse Patient Records regulations: The Federal rules restrict any use of the information to criminally investigate or prosecute any alcohol or drug abuse patient.[facility] the event this information is protected by the Federal Confidentiality of Alcohol and Drug Abuse Patient Records regulations: The Federal rules restrict any use of the information to criminally investigate or prosecute any alcohol or drug abuse patient.[facility] the event this information is protected by the Federal Confidentiality of Alcohol and Drug Abuse Patient Records regulations: The Federal rules restrict any use of the information to criminally investigate or prosecute any alcohol or drug abuse patient.[facility] the event this information is protected by the Federal Confidentiality of Alcohol and Drug Abuse Patient Records regulations: The Federal rules restrict any use of the information to criminally investigate or prosecute any alcohol or drug abuse patient.[facility] the event this information is protected by the Federal Confidentiality of Alcohol and Drug Abuse Patient Records regulations: The Federal rules restrict any use of the information to criminally investigate or prosecute any alcohol or drug abuse patient.[facility] the event this information is protected by the Federal Confidentiality of Alcohol and Drug Abuse Patient Records regulations: The Federal rules restrict any use of the information to criminally investigate or prosecute any alcohol or drug abuse patient.[facility] the event this information is protected by the Federal Confidentiality of Alcohol and Drug Abuse Patient Records regulations: The Federal rules restrict any use of the information to criminally investigate or prosecute any alcohol or drug abuse patient.[facility] the event this information is protected by the Federal Confidentiality of Alcohol and Drug Abuse Patient Records regulations: The Federal rules restrict any use of the information to criminally investigate or prosecute any alcohol or drug abuse patient.[facility] the event this information is protected by the Federal Confidentiality of Alcohol and Drug Abuse Patient Records regulations: The Federal rules restrict any use of the information to criminally investigate or prosecute any alcohol or drug abuse patient.[facility] the event this information is protected by the Federal Confidentiality of Alcohol and Drug Abuse Patient Records regulations: The Federal rules restrict any use of the information to criminally investigate or prosecute any alcohol or drug abuse patient.[facility] the event this information is protected by the Federal Confidentiality of Alcohol and Drug Abuse Patient Records regulations: The Federal rules restrict any use of the information to criminally investigate or prosecute any alcohol or drug abuse patient.[facility] the event this information is protected by the Federal Confidentiality of Alcohol and Drug Abuse Patient Records regulations: The Federal rules restrict any use of the information to criminally investigate or prosecute any alcohol or drug abuse patient.[facility] the event this information is protected by the Federal Confidentiality of Alcohol and Drug Abuse Patient Records regulations: The Federal rules restrict any use of the information to criminally investigate or prosecute any alcohol or drug abuse patient.[facility] the event this information is protected by the Federal Confidentiality of Alcohol and Drug Abuse Patient Records regulations: The Federal rules restrict any use of the information to criminally investigate or prosecute any alcohol or drug abuse patient.[facility] the event this information is protected by the Federal Confidentiality of Alcohol and Drug Abuse Patient Records regulations: The Federal rules restrict any use of the information to criminally investigate or prosecute any alcohol or drug abuse patient.[facility] the event this information is protected by the Federal Confidentiality of Alcohol and Drug Abuse Patient Records regulations: The Federal rules restrict any use of the information to criminally investigate or prosecute any alcohol or drug abuse patient.[facility] the event this information is protected by the Federal Confidentiality of Alcohol and Drug Abuse Patient Records regulations: The Federal rules restrict any use of the information to criminally investigate or prosecute any alcohol or drug abuse patient.[facility] the event this information is protected by the Federal Confidentiality of Alcohol and Drug Abuse Patient Records regulations: The Federal rules restrict any use of the information to criminally investigate or prosecute any alcohol or drug abuse patient.[facility] the event this information is protected by the Federal Confidentiality of Alcohol and Drug Abuse Patient Records regulations: The Federal rules restrict any use of the information to criminally investigate or prosecute any alcohol or drug abuse patient.[facility] the event this information is protected by the Federal Confidentiality of Alcohol and Drug Abuse Patient Records regulations: The Federal rules restrict any use of the information to criminally investigate or prosecute any alcohol or drug abuse patient.[facility] the event this information is protected by the Federal Confidentiality of Alcohol and Drug Abuse Patient Records regulations: The Federal rules restrict any use of the information to criminally investigate or prosecute any alcohol or drug abuse patient.[facility] the event this information is protected by the Federal Confidentiality of Alcohol and Drug Abuse Patient Records regulations: The Federal rules restrict any use of the information to criminally investigate or prosecute any alcohol or drug abuse patient.[facility] the event this information is protected by the Federal Confidentiality of Alcohol and Drug Abuse Patient Records regulations: The Federal rules restrict any use of the information to criminally investigate or prosecute any alcohol or drug abuse patient.[facility] the event this information is protected by the Federal Confidentiality of Alcohol and Drug Abuse Patient Records regulations: The Federal rules restrict any use of the information to criminally investigate or prosecute any alcohol or drug abuse patient.[facility] HospitalIn the event this information is protected by the Federal Confidentiality of Alcohol and Drug Abuse Patient Records regulations: The Federal rules restrict any use of the information to criminally investigate or prosecute any alcohol or drug abuse patient.[facility] HospitalIn the event this information is protected by the Federal Confidentiality of Alcohol and Drug Abuse Patient Records regulations: The Federal rules restrict any use of the information to criminally investigate or prosecute any alcohol or drug abuse patient.[facility] HospitalIn the event this information is protected by the Federal Confidentiality of Alcohol and Drug Abuse Patient Records regulations: The Federal rules restrict any use of the information to criminally investigate or prosecute any alcohol or drug abuse patient.[facility] HospitalIn the event this information is protected by the Federal Confidentiality of Alcohol and Drug Abuse Patient Records regulations: The Federal rules restrict any use of the information to criminally investigate or prosecute any alcohol or drug abuse patient.[facility] HospitalIn the event this information is protected by the Federal Confidentiality of Alcohol and Drug Abuse Patient Records regulations: The Federal rules restrict any use of the information to criminally investigate or prosecute any alcohol or drug abuse patient.[facility] HospitalIn the event this information is protected by the Federal Confidentiality of Alcohol and Drug Abuse Patient Records regulations: The Federal rules restrict any use of the information to criminally investigate or prosecute any alcohol or drug abuse patient.[facility] HospitalIn the event this information is protected by the Federal Confidentiality of Alcohol and Drug Abuse Patient Records regulations: The Federal rules restrict any use of the information to criminally investigate or prosecute any alcohol or drug abuse patient.[facility] HospitalIn the event this information is protected by the Federal Confidentiality of Alcohol and Drug Abuse Patient Records regulations: The Federal rules restrict any use of the information to criminally investigate or prosecute any alcohol or drug abuse patient.[facility] HospitalIn the event this information is protected by the Federal Confidentiality of Alcohol and Drug Abuse Patient Records regulations: The Federal rules restrict any use of the information to criminally investigate or prosecute any alcohol or drug abuse patient.[facility] HospitalIn the event this information is protected by the Federal Confidentiality of Alcohol and Drug Abuse Patient Records regulations: The Federal rules restrict any use of the information to criminally investigate or prosecute any alcohol or drug abuse patient.[facility] HospitalIn the event this information is protected by the Federal Confidentiality of Alcohol and Drug Abuse Patient Records regulations: The Federal rules restrict any use of the information to criminally investigate or prosecute any alcohol or drug abuse patient.[facility] HospitalIn the event this information is protected by the Federal Confidentiality of Alcohol and Drug Abuse Patient Records regulations: The Federal rules restrict any use of the information to criminally investigate or prosecute any alcohol or drug abuse patient.[facility] HospitalIn the event this information is protected by the Federal Confidentiality of Alcohol and Drug Abuse Patient Records regulations: The Federal rules restrict any use of the information to criminally investigate or prosecute any alcohol or drug abuse patient.[facility] HospitalIn the event this information is protected by the Federal Confidentiality of Alcohol and Drug Abuse Patient Records regulations: The Federal rules restrict any use of the information to criminally investigate or prosecute any alcohol or drug abuse patient.[facility] HospitalIn the event this information is protected by the Federal Confidentiality of Alcohol and Drug Abuse Patient Records regulations: The Federal rules restrict any use of the information to criminally investigate or prosecute any alcohol or drug abuse patient.[facility] HospitalIn the event this information is protected by the Federal Confidentiality of Alcohol and Drug Abuse Patient Records regulations: The Federal rules restrict any use of the information to criminally investigate or prosecute any alcohol or drug abuse patient.[facility] HospitalIn the event this information is protected by the Federal Confidentiality of Alcohol and Drug Abuse Patient Records regulations: The Federal rules restrict any use of the information to criminally investigate or prosecute any alcohol or drug abuse patient.[facility] HospitalIn the event this information is protected by the Federal Confidentiality of Alcohol and Drug Abuse Patient Records regulations: The Federal rules restrict any use of the information to criminally investigate or prosecute any alcohol or drug abuse patient.[facility] HospitalIn the event this information is protected by the Federal Confidentiality of Alcohol and Drug Abuse Patient Records regulations: The Federal rules restrict any use of the information to criminally investigate or prosecute any alcohol or drug abuse patient.[facility] HospitalIn the event this information is protected by the Federal Confidentiality of Alcohol and Drug Abuse Patient Records regulations: The Federal rules restrict any use of the information to criminally investigate or prosecute any alcohol or drug abuse patient.[facility] HospitalIn the event this information is protected by the Federal Confidentiality of Alcohol and Drug Abuse Patient Records regulations: The Federal rules restrict any use of the information to criminally investigate or prosecute any alcohol or drug abuse patient.[facility] HospitalIn the event this information is protected by the Federal Confidentiality of Alcohol and Drug Abuse Patient Records regulations: The Federal rules restrict any use of the information to criminally investigate or prosecute any alcohol or drug abuse patient.[facility] HospitalIn the event this information is protected by the Federal Confidentiality of Alcohol and Drug Abuse Patient Records regulations: The Federal rules restrict any use of the information to criminally investigate or prosecute any alcohol or drug abuse patient.[facility] HospitalIn the event this information is protected by the Federal Confidentiality of Alcohol and Drug Abuse Patient Records regulations: The Federal rules restrict any use of the information to criminally investigate or prosecute any alcohol or drug abuse patient.[facility] HospitalIn the event this information is protected by the Federal Confidentiality of Alcohol and Drug Abuse Patient Records regulations: The Federal rules restrict any use of the information to criminally investigate or prosecute any alcohol or drug abuse patient.[facility] HospitalIn the event this information is protected by the Federal Confidentiality of Alcohol and Drug Abuse Patient Records regulations: The Federal rules restrict any use of the information to criminally investigate or prosecute any alcohol or drug abuse patient.[facility] HospitalIn the event this information is protected by the Federal Confidentiality of Alcohol and Drug Abuse Patient Records regulations: The Federal rules restrict any use of the information to criminally investigate or prosecute any alcohol or drug abuse patient.[facility] HospitalIn the event this information is protected by the Federal Confidentiality of Alcohol and Drug Abuse Patient Records regulations: The Federal rules restrict any use of the information to criminally investigate or prosecute any alcohol or drug abuse patient.[facility] HospitalIn the event this information is protected by the Federal Confidentiality of Alcohol and Drug Abuse Patient Records regulations: The Federal rules restrict any use of the information to criminally investigate or prosecute any alcohol or drug abuse patient.[facility] HospitalIn the event this information is protected by the Federal Confidentiality of Alcohol and Drug Abuse Patient Records regulations: The Federal rules restrict any use of the information to criminally investigate or prosecute any alcohol or drug abuse patient.[facility] HospitalIn the event this information is protected by the Federal Confidentiality of Alcohol and Drug Abuse Patient Records regulations: The Federal rules restrict any use of the information to criminally investigate or prosecute any alcohol or drug abuse patient.[facility] HospitalIn the event this information is protected by the Federal Confidentiality of Alcohol and Drug Abuse Patient Records regulations: The Federal rules restrict any use of the information to criminally investigate or prosecute any alcohol or drug abuse patient.[facility] HospitalIn the event this information is protected by the Federal Confidentiality of Alcohol and Drug Abuse Patient Records regulations: The Federal rules restrict any use of the information to criminally investigate or prosecute any alcohol or drug abuse patient.[facility] Care Teams (unrecognized sec tion and [...] 2025 End: March 28, 2025 Dr. 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 Khanh Rodriguez MD Primary Care Provider, Refer ring Provider Active Dr. Nabeel Patel MD Attending Provider Active Team Status: Inactive Member Role Status Dates Dr. Khanh Rodriguez MD Primary Care Provider, Refer ring Provider Active Cesia Perry ELEVATOR INSPECTOR, ELEVATOR INSPECTOR-C Attending Provider Active Team Status: Inactive Member Role Status Dates Dr. Khanh Rodirguez MD Primary Care Provider, Refer ring Provider Active Dr. Alex Ha DO Attending Provider Active Team Status: Inactive Member Role Status Dates Dr. Khanh Rodriguez MD Primary Care Provider, Refer ring Provider Active Dr. Shabbir Galaviz MD Attending Provider Active Team Status: Active Member Role Status Dates Dr. Khanh Rodriguez MD Primary Care Provider Active Mariela Martines ELEVATOR INSPECTOR, ELEVATOR INSPECTOR-C Attending Provi douglas, Referring Provider, Other Provider Active Team Status: Inactive Member Role Status Dates Dr. Khanh Rodriguez MD Primary Care Provider Active Dr. Uday Brooks MD Admit Provider, Attending Provider, Referring Provider Active Team Status: Inactive Member Role Status Dates Dr. Khanh Rodriguez MD Primary Care Provider Active Mariela Martines ELEVATOR INSPECTOR, ELEVATOR INSPECTOR-C Attending Provider, Referring Provider Active Team Status: [...] Provider, Refer ring Provider Active Mariela Martines ELEVATOR INSPECTOR, ELEVATOR INSPECTOR-C Attending Provider, Other Pro vider Active Team Status: Active Member Role Status Dates Dr. Khanh Rodriguez MD Primary Care P rovider, Attending Provider, Referring Provider Active Team Status: Inactive Member Role Status Dates Dr. 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 Relationship Specialty Start Date End Date Abdirahman Conley [address] [place] [address] [place] [address] PCP - General Internal Medicine 06/05/19 Reason for Visit (unrecogniz ed section and content) Reason Comments Physical Therapy Specialty Diagnoses / Procedures Referred By Contac t Referred To Contact [facility] Diagnoses Degenerative scoliosis Lumbar radiculopathy Chronic right-sided low back pain with right-sided sciatica Procedures CONSULT TO PHYSICAL THERAPY PHYSICAL THERAPY EVALUATION HIGH COMPLEX 45 MINS Monse Merlos, PA-C [address] [place] [address] Phone: tel: fax: [facility] [place] [address] Referral ID Status Reason Start Date Expiration Date Visits Requested Visits Authorized [id number] Authorized PCP Requested Referral Auto-Generate d Referral 06/12/2024 06/12/2025 99 99 Reason Comments PT Eval Patient Education Specialty Diagnoses / Procedures Referred By Contac t Referred To Contact [facility] Diagnoses Degenerative scoliosis Lumbar radiculopathy Chronic right-sided low back pain with right-sided sciatica Procedures CONSULT TO PHYSICAL THERAPY PHYSICAL THERAPY EVALUATION HIGH COMPLEX 45 MINS Monse Merlos PA-C [address] [place] [address] Phone: tel: fax: [facility] [address] [place] [id number] Referral ID Status Reason Start Date Expiration Date Visits Requested Visits Authorized [id number] Authorized PCP Requested Referral Auto-Generate d Referral 06/12/2024 06/12/2025 99 99 Reason Comments PT Discharge Specialty Diagnoses / Procedures Referred By Contac t Referred To Contact PHYSICAL THERAPY Diagnoses other malaise R53.81 Procedures other malaise R53.81 Solo Calderón [address] [facility] [address] [place] [address] Pt [facility] [address] [place] [address] Referral ID Status Reason Start Date Expiration Date V isits Requested Visits Authorized [id number] Authorized 09/04/2023 09/03/2024 99 99 Reason Comments PT Progress Note Specialty Diagnoses / Procedures Referred By Contac t Referred To Contact [facility] Diagnoses Venous ulcer (HCC) Venous (peripheral) insufficiency Secondary lymphedema Procedures CONSULT TO PHYSICAL THERAPY PHYSICAL THERAPY EVALUATION HIGH COMPLEX 45 MINS Gt Yin DO [address] [place] [address] [facility] [address] [address] Referral ID Status Reason Start Date Expiration Date Visits Requested Visits Authorized [id number] Authorized PCP Requested Referral Auto-Generate d Referral 02/27/2024 02/26/2025 99 99 Reason Comments PT Eval Reason Comments New Patient Reason Comments New Pain Reason Comments Appointment Reason Comments Established Patient Reason Comments New Patient Low Back Pain Right Hip Pain Left Hip Pain Leg Pain Right upper Specialty Diagnoses / Procedures Referred By Contac t Referred To Contact [facility] Diagnoses Degenerative scoliosis Procedures CONSULT TO [facility] OFFICE/OUTPATIENT NEW HIGH MDM 60 MINUTES Marisela Mccarty MD [address] [address] Referral ID Status Reason Start Date Expiration Date V isits Requested Visits Authorized [id number] Closed PCP Requested Referral 04/02/2024 04/02/2025 1 [...] COMPLEX 45 MINS Monse Merlos PA-C [address] [place] [address] Phone: tel: fax: [facility] [address] [phone] FOR RECORDS PERTAINING TO PATIENTS WHO ARE [...] BASED ON THE PRIMARY CLINICAL RECORDS. [facility] [employer] [facility]. provides no warranty or guarantee of the accuracy or completeness of information in this document.
--- OUTSIDE RECORDS SUMMARY | 2025-06-07 19:59 | XMS RPT_ITS | CCD ---
Author Organization [facility]yp[facility] Care Team Providers Care Screen Cleaner Name Role Phone LILI ALVAREZ Unavailable Unavailable LILI ALVAREZ Unavailable Unavailable Unavailable Primary Care Provider Unavailmatheus Dickerson MD, Juve Unavailable Unavailable Care Physician, No Primary Primary Care Provider Unavailable Care Physician, No Primary Referring Provider Un available Dr. Khanh Rodriguez Attending Provider [phone] Dr. Khanh Rodriguez Primary Care Provider [phone] Dr. Khanh Rodriguez Referring Provider [phone] Abdirahman Conley Primary Care Provider [phone] Dr. Khanh Rodriguez Primary Care Provider [phone] Provider JOSE ALEJANDRO Carroll Attending Provider Martines DECKHAND CLAM DREDGE, DECKHAND CLAM DREDGE-C Mariela Referring Provider Martines DECKHAND CLAM DREDGE, DECKHAND CLAM DREDGE-C Mariela Other Provider Chio DECKHAND CLAM DREDGE, DECKHAND CLAM DREDGE-C Thalia E Attending Provider [phone] Dr. Khanh Rodriguez Primary Care Provider Dr. Jacob Amor Attending Provider Dr. Uday Brooks Referring Provider CeDr. Uday clemens Admit Provider Dr. Uday Brooks Attending Provider Dr. Uday Brooks Other Provider JOSE ALEJANDRO Carroll Attending Provider Dr. Khanh Rodriguez Referring Provider Martines DECKHAND CLAM DREDGE, DECKHAND CLAM DREDGE-C Mariela Other Provider Chio DECKHAND CLAM DREDGE, DECKHAND CLAM DREDGE-C Thalia E Attending Provider [phone] Chio DECKHAND CLAM DREDGE, DECKHAND CLAM DREDGE-C Thalia E Referring Provider [phone] Dr. Nabeel Patel Attending Provider Dr. Alex Ha Attending Provider Orlando DECKHAND CLAM DREDGE, DECKHAND CLAM DREDGE-C Cesia Attending Provider Dr. Shabbir Galaviz Attending [...] Dr. Khanh Rodriguez Referring Provider [phone] Conrad DECKHAND CLAM DREDGE, DECKHAND CLAM DREDGE-C Mariela Other Provider Chio DECKHAND CLAM DREDGE, DECKHAND CLAM DREDGE-C Thalia E Attending Provider Chio DECKHAND CLAM DREDGE, DECKHAND CLAM DREDGE-C Thalia E Referring Provider [phone] Dr. Shabbir Galaviz Referring Provider [phone] JIMMY Flores Attending Provider [phone] Khanh Rodriguez Attending Provider [phone] Dr. Khanh Rodriguez Primary Care Provider [phone] Dr. Khanh Rodriguez Referring Provider [phone] Dr. Khanh Rodriguez Primary Care Provider [phone] Dr. Khanh Rodriguez Referring Provider [phone] Dr. Uday Brooks Attending Provider Orlando DECKHAND CLAM DREDGE, DECKHAND CLAM DREDGE-C Cesia Attending Provider Dr. Shabbir Galaviz Attending [...] Khanh Rodriguez MD Primary Care Provider [phone] Tuan, Rosales Primary Care Unavailable Tuan, Rosales [...] Unavailable WAYT, SOLO P Referring Unavailable O'CARLOS, ILSETH Attending Unavailable OLEGHE, EFEWONGBE B Primary Care [...] Dr. Khanh Rodriguez MD Referring Provider [phone] Solo Méndez Attending Provider [phone] Nabeel Patel MD Attending Provider Dr. Nabeel Patel MD Referring Provider Michael ARAUJO, Dr. Orozco Attending Provider [phone] Jammie ARAUJO, Dr. Spicer Attending Provider Jammie ARAUJO, Dr. Spicer Referring Provider Liseth Christiansen Attending Provider Tracy Navarro Attending Provider [phone] Mt ARAUJO, Dr. aJmes Attending Provider Tracy Navarro Unavailable Michael ARAUJO, Dr. Orozco Primary Care Physician Solo Méndez Attending Physician Amanda ARAUJO, Dr. Lees Attending Physician Michael ARAUJO, Dr. Orozco Attending Physician [phone] Jammie ARAUJO, Dr. Spicer Attending Physician [phone] Liseth Christiansen Attending Physician Tracy Navarro Attending Physician Mt ARAUJO, Dr. James Attending Physician Tracy Navarro Referring Provider [phone] Magnesium (6 sources) Start: 05-28-2020 magnesium 250 [...] DAILY as needed for Muscle pain/spasm 40 1 May 15, 2024 2:52pm January 22, 2025 [...] SUBCUTANEOUS) Inject subcutaneously. Given by Infusion center [facility] Active Completed/Discontinued Medications Medication Drug Class(es) [...] on above: Take 2 tablets by mo [facility] twice daily. ibandronic acid 150 mg oral [...] sources) Opioid Agonist Start: 05-15-20 End: 05-31-20 24 take 1 tablet by mouth every six [...] on above: Take 1 tablet by bob twice daily. traMADol hydrochloride 50 mg oral [...] 2023 9:10am take 1 tablet by bob every six hours as needed traMADol (ULTRAM) [...] Facility CASE MANAGEMon 06-03-2025 CASE MANAGEM Normal [facility] CASE MANAGEM Normal [facility] CBC panel Auto (Bld)on 06-03 Erythrocyte distribution width (RBC) [Ratio] 15.0 % Normal 11.5-15.0 [facility] Comment on above: Order Comment: Speci men Type: BLOOD SPECIMENOrdering Facility: [facility] Address: [address] [place], [place] [address] Performed By: #### 5 8410-2 ####[facility] LABORATORYCLIA [id number] [address] Hematocrit (Bld) [Volume fraction] 25.6 % Low 36.0-46.0 [facility] Comment on above: Order Comment: Speci men Type: BLOOD SPECIMENOrdering Facility: [facility] Address: [address] [place] [address] Performed By: #### 5 8410-2 ####[facility] LABORATORYCLIA [id number] [address] [place] Hemoglobin (Bld) [Mass/Vol] 9.3 g/dL Low 11.5-15.5 [facility] Comment on above: Order Comment: Speci men Type: BLOOD SPECIMENOrdering Facility: [facility] Address: [address] [place] [address] Performed By: #### 5 8410-2 ####[facility] LABORATORYCLIA [id number] [address] MCH (RBC) [Entitic mass] 37.3 pg High 26.0-34.0 [facility] Comment on above: Order Comment: Speci men Type: BLOOD SPECIMENOrdering Facility: [facility] Address: [address] [place] [address] Performed By: #### 5 8410-2 ####[facility] LABORATORYCLIA [id number] [address] MCHC (RBC) [Mass/Vol] 36.3 g/dL High 30.5-36.0 [facility] Comment on above: Order Comment: Speci men Type: BLOOD SPECIMENOrdering Facility: [facility] Address: [address] [place] [address] Performed By: #### 5 8410-2 ####[facility] LABORATORYCLIA [id number] [address] MCV (RBC) [Entitic vol] 102.8 fL High 80.0-100.0 [facility] Comment on above: Order Comment: Speci men Type: BLOOD SPECIMENOrdering Facility: [facility] Address: [address] [place] [address] Performed By: #### 5 8410-2 ####[facility] LABORATORYCLIA [id number] [place] [address] [place] Nucleated RBC (Bld) [#/Vol] 10*3/uL Normal <0.01 [facility] Comment on above: Order Comment: Speci men Type: BLOOD SPECIMENOrdering Facility: [facility] Address: [address] [place] [address] Performed By: #### 5 8410-2 ####[facility] LABORATORYCLIA [id number] [place] [address] [place] Platelet mean volume (Bld) [Entitic vol] 8.9 fL Low 9.0-12.7 [facility] Comment on above: Order Comment: Speci men Type: BLOOD SPECIMENOrdering Facility: [facility] Address: [address] [place] [address] Performed By: #### 5 8410-2 ####[facility] LABORATORYCLIA [id number] [address] [place] Platelets (Bld) [#/Vol] 107 10*3/uL Low 150-400 [facility] Comment on above: Order Comment: Speci men Type: BLOOD SPECIMENOrdering Facility: [facility] Address: [address] [place] [address] Performed By: #### 5 8410-2 ####[facility] LABORATORYCLIA [id number] [address] [place] RBC (Bld) [#/Vol] 2.49 10*6/uL Low 3.90-5.[address] [facility] Comment on above: Order Comment: Speci men Type: BLOOD SPECIMENOrdering Facility: [facility] Address: [address] [place] [address] Performed By: #### 5 8410-2 ####[facility] LABORATORYCLIA [id number] [address] [place] WBC (Bld) [#/Vol] 3.22 10*3/uL Low 3.70-11.[address] [facility] Comment on above: Order Comment: Speci men Type: BLOOD SPECIMENOrdering Facility: [facility] Address: [address] [place] [address] Performed By: #### 5 8410-2 ####[facility] LABORATORYCLIA [id number] [place] [address] [place] CNDSon 06-03-2025 CNDS Normal [facility] CONSULTon 06-03-2025 CONSULT Normal [facility] CONSULT PROGon 06-03-2025 CONSULT PROG Normal [facility] CONSULT PROG [facility] CORTISOL, 30 MIN POST COSYNT ROPIN INJECTIONon 06-03-2025 Cortisol 30 Min post Unsp challenge [Mass/Vol] 16.8 ug/dL [facility] Comment on above: Order Comment: Speci men Type: BLOOD SPECIMENOrdering Facility: [facility] Address: [address] [place] [address] Performed By: #### C OR30 ####[facility] LABCLIA [id number] [address] [place] CORTISOL, 60 MIN POST COSYNT ROPIN INJECTION 3 POINTon 06-03-2025 Cortisol 1 Hr post Unsp challenge [Mass/Vol] 18.4 ug/dL [facility] Comment on above: Order Comment: Speci men Type: BLOOD SPECIMENOrdering Facility: [facility] Address: [address] [place] [address] Performed By: #### C ORS60M ####[facility] LABIA [id number] [place] [id number] [place] INTERPRETATION (ACTHST) [facility] Comment on above: Order Comment: Speci men Type: BLOOD SPECIMENOrdering Facility: [facility] Address: [address] [place] [address] Result Comment: Afte r cortrosyn stimulation, a peak cortisol response greater than 12.6 ug/dL may indicate appropriate cortisol secretion. This result should be interpreted within the clinical context and other test results.Sun et al. Clinical Implications for Biochemical Diagnostic Thresholds of Adrenal Sufficiency Using a Highly Specific Cortisol Immunoassay. 2017 Clin. Biochem. 50:475-480. Performed By: #### C ORS60M ####[facility] LABCLIA [id number] [address] CORTISOL, BASALon 06-03-2025 Cortisol baseline [Mass/Vol] 5.6 ug/dL Normal 4.8-19.5 [facility] Comment on above: Order Comment: Speci men Type: BLOOD SPECIMENOrdering Facility: [facility] Address: [address] [place] [address] Result Comment: Prov ided reference range is from 6-10 AM sample collection time.Cortisol Reference Range: 6-10 AM = 4.8-19.5 ug/dL, 4-8 PM = 2.5-11.9 ug/dL Performed By: #### C ORTBAS ####[facility] LABCLIA [id number] [address] OF [facility] Comprehensive metabolic 2000 panelon 06-03-2025 Albumin [Mass/Vol] 3.2 g/dL Low 3.9-4.9 [facility] Comment on above: Order Comment: Speci men Type: BLOOD SPECIMENOrdering Facility: [facility] Address: [address] [place] [address] Performed By: #### 2 4323-8 ####[facility] LABORATORYCLIA [id number] [address] OF [facility] ALP [Catalytic activity/Vol] 185 U/L High 34-123 [facility] Comment on above: Order Comment: Speci men Type: BLOOD SPECIMENOrdering Facility: [facility] Address: [address] [place] [address] Performed By: #### 2 4323-8 ####[facility] LABORATORYCLIA [id number] [address] ALT [Catalytic activity/Vol] 13 U/L Normal 7-38 [facility] Comment on above: Order Comment: Speci men Type: BLOOD SPECIMENOrdering Facility: [facility] Address: [address] [place] [address] Performed By: #### 2 4323-8 ####[facility] LABORATORYCLIA [id number] [place] [address] [place] Anion gap [Moles/Vol] 10 mmol/L Normal 8-15 [facility] Comment on above: Order Comment: Speci men Type: BLOOD SPECIMENOrdering Facility: [facility] Address: [address] [place] [address] Performed By: #### 2 4323-8 ####[facility] LABORATORYCLIA [id number] [place] [address] [place] AST [Catalytic activity/Vol] 45 U/L High 13-35 [facility] Comment on above: Order Comment: Speci men Type: BLOOD SPECIMENOrdering Facility: [facility] Address: [address] [place] [address] Performed By: #### 2 4323-8 ####[facility] LABORATORYCLIA [id number] [place] [address] [place] Bilirubin [Mass/Vol] 3.1 mg/dL High 0.2-1.3 [facility] Comment on above: Order Comment: Speci men Type: BLOOD SPECIMENOrdering Facility: [facility] Address: [address] [place] [address] Performed By: #### 2 4323-8 ####[facility] LABORATORYCLIA [id number] [address] [place] Calcium [Mass/Vol] 8.7 mg/dL Normal 8.5-10.2 [facility] Comment on above: Order Comment: Speci men Type: BLOOD SPECIMENOrdering Facility: [facility] Address: [address] [place] [id number] Performed By: #### 2 4323-8 ####[facility] LABORATORYCLIA [id number] [place] [address] [place] Chloride [Moles/Vol] 95 mmol/L Low 98-107 [facility] Comment on above: Order Comment: Speci men Type: BLOOD SPECIMENOrdering Facility: [facility] Address: [address] [place] [id number] Performed By: #### 2 4323-8 ####[facility] LABORATORYCLIA [id number] [place] [address] [place] CO2 [Moles/Vol] 27 mmol/L Normal 22-30 [facility] Comment on above: Order Comment: Steve lemons Type: BLOOD SPECIMENOrdering Facility: [facility] Address: [address] [place] [address] Performed By: #### 2 4323-8 ####[facility] LABORATORYCLIA [id number] [place] [address] [place] Creatinine [Mass/Vol] 0.39 mg/dL Low 0.58-0.96 [facility] Comment on above: Order Comment: Speci men Type: BLOOD SPECIMENOrdering Facility: [facility] Address: [address] [place] [address] Performed By: #### 2 4323-8 ####[facility] LABORATORYCLIA [id number] [address] [place] eGFRcr SerPlBld CKD-EPI 2020 105 mL/min/1.73m??? Normal >=60 [facility] Comment on above: Order Comment: Steve men Type: BLOOD SPECIMENOrdering Facility: [facility] Address: [address] [place] [address] Result Comment: Kaylyn mated Glomerular Filtration Rate [...] Performed By: #### 2 4323-8 ####[facility] LABORATORYCLIA [id number] [place] [address] [place] Glucose [Mass/Vol] 85 mg/dL Normal 74-99 [facility] Comment on above: Order Comment: Kathidelia lemons Type: BLOOD SPECIMENOrdering Facility: [facility] Address: [address] [place] [address] Result Comment: The [place] [employer] (ADA) provides guidance for cutoff [...] Standards of Medical Care in Diabetes 2016, [place] [employer]. Diabetes Care. 2016.39(Suppl 1). Performed By: #### 2 4323-8 ####[facility] LABORATORYCLIA [id number] [place] [address] [place] Potassium [Moles/Vol] 3.1 mmol/L Low 3.7-5.1 [facility] Comment on above: Order Comment: Steve lemons Type: BLOOD SPECIMENOrdering Facility: [facility] Address: [address] [place] [address] Performed By: #### 2 4323-8 ####[facility] LABORATORYCLIA [id number] [place] [address] [place] Protein [Mass/Vol] 5.3 g/dL Low 6.3-8.0 [facility] Comment on above: Order Comment: Kathii men Type: BLOOD SPECIMENOrdering Facility: [facility] Address: [address] [place] [address] Performed By: #### 2 4323-8 ####[facility] LABORATORYCLIA [id number] [place] [id number] [place] Sodium [Moles/Vol] 132 mmol/L Low 136-144 [facility] Comment on above: Order Comment: Speci men Type: BLOOD SPECIMENOrdering Facility: [facility] Address: [address] [place] [address] Performed By: #### 2 4323-8 ####[facility] LABORATORYCLIA [id number] [place] [id number] [place] Urea nitrogen [Mass/Vol] 7 mg/dL Normal 7-21 [facility] Comment on above: Order Comment: Speci men Type: BLOOD SPECIMENOrdering Facility: [facility] Address: [address] [place] [address] Performed By: #### 2 4323-8 ####[facility] LABORATORYCLIA [id number] [place] [address] [place] ALLIED HEALTHon 06-02-2025 ALLIED HEALTH Normal [facility] CASE MANAGEMon 06-02-2025 CASE MANAGEM Normal [facility] CBC panel Auto (Bld)on 06-02 Erythrocyte distribution width (RBC) [Ratio] 14.9 % Normal 11.5-15.0 [facility] Comment on above: Order Comment: Speci men Type: BLOOD SPECIMENOrdering Facility: [facility] Address: [address] [place] [address] Performed By: #### 5 8410-2 ####[facility] LABORATORYCLIA [id number] [place] [address] [place] Hematocrit (Bld) [Volume fraction] 26.9 % Low 36.0-46.0 [facility] Comment on above: Order Comment: Speci men Type: BLOOD SPECIMENOrdering Facility: [facility] Address: [address] [place] [address] Performed By: #### 5 8410-2 ####[facility] LABORATORYCLIA [id number] [place] [address] [place] Hemoglobin (Bld) [Mass/Vol] 9.6 g/dL Low 11.5-15.5 [facility] Comment on above: Order Comment: Speci men Type: BLOOD SPECIMENOrdering Facility: [facility] Address: [address] [place] [address] Performed By: #### 5 8410-2 ####[facility] LABORATORYCLIA [id number] [address] [place] MCH (RBC) [Entitic mass] 37.6 pg High 26.0-34.0 [facility] Comment on above: Order Comment: Speci men Type: BLOOD SPECIMENOrdering Facility: [facility] Address: [address] [place] [address] Performed By: #### 5 8410-2 ####[facility] LABORATORYCLIA [id number] [address] [place] MCHC (RBC) [Mass/Vol] 35.7 g/dL Normal 30.5-36.0 [facility] Comment on above: Order Comment: Speci men Type: BLOOD SPECIMENOrdering Facility: [facility] Address: [address] [place] [address] Performed By: #### 5 8410-2 ####[facility] LABORATORYCLIA [id number] [address] [place] MCV (RBC) [Entitic vol] 105.5 fL High 80.0-100.0 [facility] Comment on above: Order Comment: Speci men Type: BLOOD SPECIMENOrdering Facility: [facility] Address: [address] [place] [address] Performed By: #### 5 8410-2 ####[facility] LABORATORYCLIA [id number] [address] [place] Nucleated RBC (Bld) [#/Vol] 10*3/uL Normal <0.01 [facility] Comment on above: Order Comment: Speci men Type: BLOOD SPECIMENOrdering Facility: [facility] Address: [address] [place] [address] Performed By: #### 5 8410-2 ####[facility] LABORATORYCLIA [id number] [address] [place] Platelet mean volume (Bld) [Entitic vol] 9.1 fL Normal 9.0-12.7 [facility] Comment on above: Order Comment: Speci men Type: BLOOD SPECIMENOrdering Facility: [facility] Address: [address] [place] [address] Performed By: #### 5 8410-2 ####[facility] LABORATORYCLIA [id number] [address] [place] Platelets (Bld) [#/Vol] 98 10*3/uL Low 150-400 [facility] Comment on above: Order Comment: Speci men Type: BLOOD SPECIMENOrdering Facility: [facility] Address: [address] [place] [address] Result Comment: No c lot detected. Performed By: #### 5 8410-2 ####[facility] LABORATORYCLIA [id number] [place] [address] [place] RBC (Bld) [#/Vol] 2.55 10*6/uL Low 3.90-5.[address] [facility] Comment on above: Order Comment: Speci men Type: BLOOD SPECIMENOrdering Facility: [facility] Address: [address] [place] [address] Performed By: #### 5 8410-2 ####[facility] LABORATORYCLIA [id number] [address] WBC (Bld) [#/Vol] 3.25 10*3/uL Low 3.70-11.[address] [facility] Comment on above: Order Comment: Speci men Type: BLOOD SPECIMENOrdering Facility: [facility] Address: [address] [place] [address] Performed By: #### 5 8410-2 ####[facility] LABORATORYCLIA [id number] [address] CONSULT PROGon 06-02-2025 CONSULT PROG Normal [facility] CONSULT PROG Normal [facility] CONSULT PRO Normal [facility] CONSULT PROG Normal [facility] CONSULT PRO Normal [facility] Comprehensive metabolic 2000 panelon 06-02-2025 Albumin [Mass/Vol] 3.2 g/dL Low 3.9-4.9 [facility] Comment on above: Order Comment: Speci men Type: BLOOD SPECIMENOrdering Facility: [facility] Address: [address] [place], [place] [address] Performed By: #### 2 4323-8, , 2776-09 ####[facility] LABORATORYCLIA [id number] [address] ALP [Catalytic activity/Vol] 182 U/L High 34-123 [facility] Comment on above: Order Comment: Speci men Type: BLOOD SPECIMENOrdering Facility: [facility] Address: [address] [place], [place] [address] Performed By: #### 2 4323-8, , 2777-1 ####[facility] LABORATORYCLIA [id number] [place] [address] [place] ALT [Catalytic activity/Vol] 14 U/L Normal 7-38 [facility] Comment on above: Order Comment: Speci men Type: BLOOD SPECIMENOrdering Facility: [facility] Address: [address] [place] [address] Performed By: #### 2 4323-8, 69683-2, 2776-09 ####[facility] LABORATORYCLIA [id number] [place] [address] [place] Anion gap [Moles/Vol] 8 mmol/L Normal 8-15 [facility] Comment on above: Order Comment: Speci men Type: BLOOD SPECIMENOrdering Facility: [facility] Address: [address] [place] [address] Performed By: #### 2 4323-8, , 2776-09 ####[facility] LABORATORYCLIA [id number] [address] [place] AST [Catalytic activity/Vol] 51 U/L High 13-35 [facility] Comment on above: Order Comment: Speci men Type: BLOOD SPECIMENOrdering Facility: [facility] Address: [address] [place] [address] Performed By: #### 2 4323-8, , 2776-09 ####[facility] LABORATORYCLIA [id number] [place] [address] [place] Bilirubin [Mass/Vol] 3.7 mg/dL High 0.2-1.3 [facility] Comment on above: Order Comment: Speci men Type: BLOOD SPECIMENOrdering Facility: [facility] Address: [address] [place] [address] Performed By: #### 2 4323-8, , 2776-09 ####[facility] LABORATORYCLIA [id number] [address] [place] Calcium [Mass/Vol] 8.3 mg/dL Low 8.5-10.2 [facility] Comment on above: Order Comment: Speci men Type: BLOOD SPECIMENOrdering Facility: [facility] Address: [address] [place] [address] Performed By: #### 2 4323-8, 97474-4, 2776-09 ####[facility] LABORATORYCLIA [id number] [place] [address] [place] Chloride [Moles/Vol] 98 mmol/L Normal 98-107 [facility] Comment on above: Order Comment: Speci men Type: BLOOD SPECIMENOrdering Facility: [facility] Address: [address] [place] [address] Performed By: #### 2 4323-8, , 2776-09 ####[facility] LABORATORYCLIA [id number] [place] [address] [place] CO2 [Moles/Vol] 27 mmol/L Normal 22-30 [facility] Comment on above: Order Comment: Speci men Type: BLOOD SPECIMENOrdering Facility: [facility] Address: [address] [place] [address] Performed By: #### 2 4323-8, , 2776-09 ####[facility] LABORATORYCLIA [id number] [place] [address] [place] Creatinine [Mass/Vol] 0.45 mg/dL Low 0.58-0.96 [facility] Comment on above: Order Comment: Speci men Type: BLOOD SPECIMENOrdering Facility: [facility] Address: [facility] [address] Performed By: #### 2 4323-8, , 2776-09 ####[facility] LABORATORYCLIA [id number] [place] [address] [place] eGFRcr SerPlBld CKD-EPI 2020 102 mL/min/1.73m??? Normal >=60 [facility] Comment on above: Order Comment: Speci men Type: BLOOD SPECIMENOrdering Facility: [facility] Address: [address] [place] [address] Result Comment: Kaylyn mated Glomerular Filtration Rate [...] actual GFR. Performed By: #### 2 4323-8, , 2776-09 ####MCLAIN LABORATORYCLIA [id number] [place] [address] [place] Glucose [Mass/Vol] 91 mg/dL Normal 74-99 [facility] Comment on above: Order Comment: Steve lemons Type: BLOOD SPECIMENOrdering Facility: [facility] Address: [address] [place] [address] Result Comment: The [place] Diabetes Association (ADA) provides guidance for cutoff [...] Standards of Medical Care in Diabetes 2016, [place] [employer]. Diabetes Care. 2016.39(Suppl 1). Performed By: #### 2 4323-8, , 2776-09 ####LY[facility]CH[facility]G LABORATORYCLIA [id number] [place] [address] [place] Potassium [Moles/Vol] 3.5 mmol/L Low 3.7-5.1 [facility] Comment on above: Order Comment: Steve lemons Type: BLOOD SPECIMENOrdering Facility: [facility] Address: [address] [id number] Performed By: #### 2 4323-8, , 2776-09 ####LYNCHBURG LABORATORYCLIA [id number] [place] [address] [place] Protein [Mass/Vol] 5.2 g/dL Low 6.3-8.0 [facility] Comment on above: Order Comment: Steve lemons Type: BLOOD SPECIMENOrdering Facility: [facility] Address: [address] [id number] Performed By: #### 2 4323-8, 99173-0, 2776-09 ####MCLAIN LABORATORYCLIA [id number] [place] [address] [place] Sodium [Moles/Vol] 133 mmol/L Low 136-144 [facility] Comment on above: Order Comment: Speci men Type: BLOOD SPECIMENOrdering Facility: [facility] Address: [address] [place] [address] Performed By: #### 2 4323-8, , 2776-09 ####MCLAIN LABORATORYCLIA [id number] [address] [place] Urea nitrogen [Mass/Vol] 5 mg/dL Low 7-21 [facility] Comment on above: Order Comment: Speci men Type: BLOOD SPECIMENOrdering Facility: [facility] Address: [address] [place], [place] [address] [address] Performed By: #### 2 4323-8, , 2776-09 ####MCLAIN LABORATORYCLIA [id number] [address] [place] ECG COMPLETEon 06-02-2025 ECG COMPLETE Normal [facility] MRI 3D POST PROCESSINGon MRI 3D POST PROCESSING Normal [facility] MRI PANC/ALBERT WO IVCONon - MRI PANC/ALBERT WO IVCON Normal [facility] Magnesium SerPl-ncon 06-02 Magnesium [Mass/Vol] 1.4 mg/dL Low 1.7-2.3 [facility] Comment on above: Order Comment: Speci men Type: BLOOD SPECIMENOrdering Facility: [facility] Address: [address] [id number] Performed By: #### 2 4323-8, , 2776-09 ####MCLAIN LABORATORYCLIA [id number] [place] [address] [place] NUTRITIONon 06-02-2025 NUTRITION Normal [facility] Phosphate SerPl-mCncon 06-02 Phosphate [Mass/Vol] 1.3 mg/dL Low 2.7-4.8 [facility] Comment on above: Order Comment: Speci men Type: BLOOD SPECIMENOrdering Facility: [facility] Address: [address] [place] [address] Performed By: #### 2 4323-8, 50880-7, 2777-1 ####MCLAIN LABORATORYCLIA [id number] [address] [place] CBC panel Auto (Bld)on 06-01 Erythrocyte distribution width (RBC) [Ratio] 15.1 % High 11.5-15.0 [facility] Comment on above: Order Comment: Speci men Type: BLOOD SPECIMENOrdering Facility: [facility] Address: [address] [place] [address] Performed By: #### 5 8410-2 ####MCLAIN LABORATORYCLIA [id number] [address] [place] Hematocrit (Bld) [Volume fraction] 25.8 % Low 36.0-46.0 [facility] Comment on above: Order Comment: Speci men Type: BLOOD SPECIMENOrdering Facility: [facility] Address: [address] [place] [address] Performed By: #### 5 8410-2 ####MCLAIN LABORATORYCLIA [id number] [address] [place] Hemoglobin (Bld) [Mass/Vol] 9.4 g/dL Low 11.5-15.5 [facility] Comment on above: Order Comment: Speci men Type: BLOOD SPECIMENOrdering Facility: [facility] Address: [address] [place] [address] Performed By: #### 5 8410-2 ####MCLAIN LABORATORYCLIA [id number] [address] [place] MCH (RBC) [Entitic mass] 38.2 pg High 26.0-34.0 [facility] Comment on above: Order Comment: Speci men Type: BLOOD SPECIMENOrdering Facility: [facility] Address: [address] [place] [address] Performed By: #### 5 8410-2 ####MCLAIN LABORATORYCLIA [id number] [address] [place] MCHC (RBC) [Mass/Vol] 36.4 g/dL High 30.5-36.0 [facility] Comment on above: Order Comment: Speci men Type: BLOOD SPECIMENOrdering Facility: [facility] Address: [address] [place] [address] Performed By: #### 5 8410-2 ####MCLAIN LABORATORYCLIA [id number] [address] [place] MCV (RBC) [Entitic vol] 104.9 fL High 80.0-100.0 [facility] Comment on above: Order Comment: Speci men Type: BLOOD SPECIMENOrdering Facility: [facility] Address: [address] [place] [address] Performed By: #### 5 8410-2 ####MCLAIN LABORATORYCLIA [id number] [address] [place] Nucleated RBC (Bld) [#/Vol] 10*3/uL Normal <0.01 [facility] Comment on above: Order Comment: Speci men Type: BLOOD SPECIMENOrdering Facility: [facility] Address: [address] [place] [address] Performed By: #### 5 8410-2 ####MCLAIN LABORATORYCLIA [id number] [address] [place] Platelet mean volume (Bld) [Entitic vol] 8.8 fL Low 9.0-12.7 [facility] Comment on above: Order Comment: Speci men Type: BLOOD SPECIMENOrdering Facility: [facility] Address: [address] [place] [address] Performed By: #### 5 8410-2 ####MCLAIN LABORATORYCLIA [id number] [address] [place] Platelets (Bld) [#/Vol] 105 10*3/uL Low 150-400 [facility] Comment on above: Order Comment: Speci men Type: BLOOD SPECIMENOrdering Facility: [facility] Address: [address] [place] [address] Performed By: #### 5 8410-2 ####MCLAIN LABORATORYCLIA [id number] [address] OF [facility] RBC (Bld) [#/Vol] 2.46 10*6/uL Low 3.90-5.[address] [facility] Comment on above: Order Comment: Speci men Type: BLOOD SPECIMENOrdering Facility: [facility] Address: [address] [place] [address] Performed By: #### 5 8410-2 ####MCLAIN LABORATORYCLIA [id number] [address] WBC (Bld) [#/Vol] 3.89 10*3/uL Normal 3.70-11.[address] [facility] Comment on above: Order Comment: Speci men Type: BLOOD SPECIMENOrdering Facility: [facility] Address: [address] [place] [address] Performed By: #### 5 8410-2 ####MCLAIN LABORATORYCLIA [id number] [address] CONSULT PROGon 06-01-2025 CONSULT PRO Normal [facility] CONSULT PROG Normal [facility] Comprehensive metabolic 2000 panelon 06-01-2025 Albumin [Mass/Vol] 3.7 g/dL Low 3.9-4.9 [facility] Comment on above: Order Comment: Speci men Type: BLOOD SPECIMENOrdering Facility: [facility] Address: [address] [place] [address] Performed By: #### 2 4323-8 ####MCLAIN LABORATORYCLIA [id number] [address] ALP [Catalytic activity/Vol] 183 U/L High 34-123 [facility] Comment on above: Order Comment: Speci men Type: BLOOD SPECIMENOrdering Facility: [facility] Address: [address] [place] [address] Performed By: #### 2 4323-8 ####MCLAIN LABORATORYCLIA [id number] [address] ALT [Catalytic activity/Vol] 13 U/L Normal 7-38 [facility] Comment on above: Order Comment: Speci men Type: BLOOD SPECIMENOrdering Facility: [facility] Address: [address] [place] [address] Performed By: #### 2 4323-8 ####MCLAIN LABORATORYCLIA [id number] [place] [address] [place] Anion gap [Moles/Vol] 11 mmol/L Normal 8-15 [facility] Comment on above: Order Comment: Speci men Type: BLOOD SPECIMENOrdering Facility: [facility] Address: [address] [place] [address] Performed By: #### 2 4323-8 ####MCLAIN LABORATORYCLIA [id number] [place] [address] [place] AST [Catalytic activity/Vol] 46 U/L High 13-35 [facility] Comment on above: Order Comment: Speci men Type: BLOOD SPECIMENOrdering Facility: [facility] Address: [address] [place] [address] Performed By: #### 2 4323-8 ####MCLAIN LABORATORYCLIA [id number] [place] [address] [place] Bilirubin [Mass/Vol] 4.3 mg/dL High 0.2-1.3 [facility] Comment on above: Order Comment: Speci men Type: BLOOD SPECIMENOrdering Facility: [facility] Address: [address] [place] [address] Performed By: #### 2 4323-8 ####MCLAIN LABORATORYCLIA [id number] [place] [address] [place] Calcium [Mass/Vol] 8.2 mg/dL Low 8.5-10.2 [facility] Comment on above: Order Comment: Speci men Type: BLOOD SPECIMENOrdering Facility: [facility] Address: [address] [place] [address] Performed By: #### 2 4323-8 ####MCLAIN LABORATORYCLIA [id number] [place] [address] [place] Chloride [Moles/Vol] 94 mmol/L Low 98-107 [facility] Comment on above: Order Comment: Kathii men Type: BLOOD SPECIMENOrdering Facility: [facility] Address: [address] [place] [address] Performed By: #### 2 4323-8 ####MCLAIN LABORATORYCLIA [id number] [place] [address] [place] CO2 [Moles/Vol] 25 mmol/L Normal 22-30 [facility] Comment on above: Order Comment: Speci men Type: BLOOD SPECIMENOrdering Facility: [facility] Address: [address] [place] [address] Performed By: #### 2 4323-8 ####MCLAIN LABORATORYCLIA [id number] [place] [address] [place] Creatinine [Mass/Vol] 0.49 mg/dL Low 0.58-0.96 [facility] Comment on above: Order Comment: Speci men Type: BLOOD SPECIMENOrdering Facility: [facility] Address: [address] [place] [address] Performed By: #### 2 4323-8 ####MCLAIN LABORATORYCLIA [id number] [address] [place] eGFRcr SerPlBld CKD-EPI 2020 100 mL/min/1.73m??? Normal >=60 [facility] Comment on above: Order Comment: Kathii men Type: BLOOD SPECIMENOrdering Facility: [facility] Address: [address] [place] [address] Result Comment: Kaylyn mated Glomerular Filtration Rate [...] Performed By: #### 2 4323-8 ####MCLAIN LABORATORYCLIA [id number] [place] [address] [place] Glucose [Mass/Vol] 89 mg/dL Normal 74-99 [facility] Comment on above: Order Comment: Kathii men Type: BLOOD SPECIMENOrdering Facility: [facility] Address: [address] [place] [address] Result Comment: The [place] Diabetes [employer] (ADA) provides guidance for cutoff [...] Standards of Medical Care in Diabetes 2016, [place] [employer]. Diabetes Care. 2016.39(Suppl 1). Performed By: #### 2 4323-8 ####MCLAIN LABORATORYCLIA [id number] [place] [address] [place] Potassium [Moles/Vol] 3.9 mmol/L Normal 3.7-5.1 [facility] Comment on above: Order Comment: Speci men Type: BLOOD SPECIMENOrdering Facility: [facility] Address: [address] [place] [address] Performed By: #### 2 4323-8 ####MCLAIN LABORATORYCLIA [id number] [place] [address] [place] Protein [Mass/Vol] 5.7 g/dL Low 6.3-8.0 [facility] Comment on above: Order Comment: Speci men Type: BLOOD SPECIMENOrdering Facility: [facility] Address: [address] [id number] Performed By: #### 2 4323-8 ####MCLAIN LABORATORYCLIA [id number] [place] [address] [place] Sodium [Moles/Vol] 130 mmol/L Low 136-144 [facility] Comment on above: Order Comment: Speci men Type: BLOOD SPECIMENOrdering Facility: [facility] Address: [address] [id number] Performed By: #### 2 4323-8 ####MCLAIN LABORATORYCLIA [id number] [address] [place] Urea nitrogen [Mass/Vol] 4 mg/dL Low 7-21 [facility] Comment on above: Order Comment: Speci men Type: BLOOD SPECIMENOrdering Facility: [facility] Address: [address] [place] [address] Performed By: #### 2 4323-8 ####MCLAIN LABORATORYCLIA [id number] [address] [place] CBC panel Auto (Bld)on 05-31 Erythrocyte distribution width (RBC) [Ratio] 15.3 % High 11.5-15.0 [facility] Comment on above: Order Comment: Speci men Type: BLOOD SPECIMENOrdering Facility: [facility] Address: [address] [place] [address] Performed By: #### 5 8410-2 ####MCLAIN LABORATORYCLIA [id number] [address] [place] Hematocrit (Bld) [Volume fraction] 24.2 % Low 36.0-46.0 [facility] Comment on above: Order Comment: Speci men Type: BLOOD SPECIMENOrdering Facility: [facility] Address: [address] [place] [address] Performed By: #### 5 8410-2 ####MCLAIN LABORATORYCLIA [id number] [address] [place] Hemoglobin (Bld) [Mass/Vol] 8.6 g/dL Low 11.5-15.5 [facility] Comment on above: Order Comment: Speci men Type: BLOOD SPECIMENOrdering Facility: [facility] Address: [address] [place] [address] Performed By: #### 5 8410-2 ####MCLAIN LABORATORYCLIA [id number] [address] [place] [facility] MCH (RBC) [Entitic mass] 37.7 pg High 26.0-34.0 [facility] Comment on above: Order Comment: Speci men Type: BLOOD SPECIMENOrdering Facility: [facility] Address: [address] [place] [address] Performed By: #### 5 8410-2 ####MCLAIN LABORATORYCLIA [id number] [address] MCHC (RBC) [Mass/Vol] 35.5 g/dL Normal 30.5-36.0 [facility] Comment on above: Order Comment: Speci men Type: BLOOD SPECIMENOrdering Facility: [facility] Address: [address] [place] [address] Performed By: #### 5 8410-2 ####MCLAIN LABORATORYCLIA [id number] [address] [place] MCV (RBC) [Entitic vol] 106.1 fL High 80.0-100.0 [facility] Comment on above: Order Comment: Speci men Type: BLOOD SPECIMENOrdering Facility: [facility] Address: [address] [place] [address] Performed By: #### 5 8410-2 ####MCLAIN LABORATORYCLIA [id number] [address] Nucleated RBC (Bld) [#/Vol] 10*3/uL Normal <0.01 [facility] Comment on above: Order Comment: Speci men Type: BLOOD SPECIMENOrdering Facility: [facility] Address: [address] [place] [address] Performed By: #### 5 8410-2 ####LYNCHBUR[facility] LABORATORYCLIA [id number] [address] [place] Platelet mean volume (Bld) [Entitic vol] 9.0 fL Normal 9.0-12.7 [facility] Comment on above: Order Comment: Speci men Type: BLOOD SPECIMENOrdering Facility: [facility] Address: [address] [place] [address] Performed By: #### 5 8410-2 ####LYNCH[facility] LABORATORYCLIA [id number] [address] Platelets (Bld) [#/Vol] 94 10*3/uL Low 150-400 [facility] Comment on above: Order Comment: Speci men Type: BLOOD SPECIMENOrdering Facility: [facility] Address: [address] [place] [address] [id number] Performed By: #### 5 8410-2 ####MCLAIN LABORATORYCLIA [id number] [place] [address] [place] RBC (Bld) [#/Vol] 2.28 10*6/uL Low 3.90-5.[address] [facility] Comment on above: Order Comment: Speci men Type: BLOOD SPECIMENOrdering Facility: [facility] Address: [facility] [place] [address] Performed By: #### 5 8410-2 ####MCLAIN LABORATORYCLIA [id number] [place] [address] [place] WBC (Bld) [#/Vol] 3.76 10*3/uL Normal 3.70-11.[address] [facility] Comment on above: Order Comment: Speci men Type: BLOOD SPECIMENOrdering Facility: [facility] Address: [address] [place], [place] [address] [address] Performed By: #### 5 8410-2 ####MCLAIN LABORATORYCLIA [id number] [address] CONSULT PROGon 05-31-2025 CONSULT PRO Normal [facility] CONSULT PROG Normal [facility] CONSULT PROG Normal [facility] Comprehensive metabolic 2000 panelon 05-31-2025 Albumin [Mass/Vol] 3.2 g/dL Low 3.9-4.9 [facility] Comment on above: Order Comment: Speci men Type: BLOOD SPECIMENOrdering Facility: [facility] Address: [facility] [place] [address] Performed By: #### 2 4323-8, ####MCLAIN LABORATORYCLIA [id number] [address] [place] ALP [Catalytic activity/Vol] 173 U/L High 34-123 [facility] Comment on above: Order Comment: Speci men Type: BLOOD SPECIMENOrdering Facility: [facility] Address: [facility] [place] [address] Performed By: #### 2 4323-8, ####MCLAIN LABORATORYCLIA [id number] [place] [address] [place] ALT [Catalytic activity/Vol] 12 U/L Normal 7-38 [facility] Comment on above: Order Comment: Speci men Type: BLOOD SPECIMENOrdering Facility: [facility] Address: [facility] [place] [address] Performed By: #### 2 4323-8, ####CMLAIN LABORATORYCLIA [id number] [place] [address] [place] Anion gap [Moles/Vol] 10 mmol/L Normal 8-15 [facility] Comment on above: Order Comment: Speci men Type: BLOOD SPECIMENOrdering Facility: [facility] Address: [address] [place] [address] Performed By: #### 2 432-8, ####MCLAIN LABORATORYCLIA [id number] [place] [address] [place] AST [Catalytic activity/Vol] 45 U/L High 13-35 [facility] Comment on above: Order Comment: Speci men Type: BLOOD SPECIMENOrdering Facility: [facility] Address: [address] [place] [address] Performed By: #### 2 4323-8, ####MCLAIN LABORATORYCLIA [id number] [place] [address] [place] Bilirubin [Mass/Vol] 4.9 mg/dL High 0.2-1.3 [facility] Comment on above: Order Comment: Speci men Type: BLOOD SPECIMENOrdering Facility: [facility] Address: [address] [place], [place] [address] Performed By: #### 2 4323-8, ####MCLAIN LABORATORYCLIA [id number] [place] [address] [place] Calcium [Mass/Vol] 7.8 mg/dL Low 8.5-10.2 [facility] Comment on above: Order Comment: Speci men Type: BLOOD SPECIMENOrdering Facility: [facility] Address: [address] [place] [address] Performed By: #### 2 4323-8, ####MCLAIN LABORATORYCLIA [id number] [place] [address] [place] Chloride [Moles/Vol] 93 mmol/L Low 98-107 [facility] Comment on above: Order Comment: Speci men Type: BLOOD SPECIMENOrdering Facility: [facility] Address: [address] [place] [address] Performed By: #### 2 4323-8, ####MCLAIN LABORATORYCLIA [id number] [place] [address] [place] CO2 [Moles/Vol] 25 mmol/L Normal 22-30 [facility] Comment on above: Order Comment: Speci men Type: BLOOD SPECIMENOrdering Facility: [facility] Address: [address] [place] [address] Performed By: #### 2 4323-8, ####MCLAIN LABORATORYCLIA [id number] [place] [address] [place] Creatinine [Mass/Vol] 0.44 mg/dL Low 0.58-0.96 [facility] Comment on above: Order Comment: Speci men Type: BLOOD SPECIMENOrdering Facility: [facility] Address: [address] [place] [address] Performed By: #### 2 4323-8, ####MCLAIN LABORATORYCLIA [id number] [place] [id number] [place] eGFRcr SerPlBld CKD-EPI 2020 102 mL/min/1.73m??? Normal >=60 [facility] Comment on above: Order Comment: Speci men Type: BLOOD SPECIMENOrdering Facility: [facility] Address: [address] [place] [address] Result Comment: Kaylyn mated Glomerular Filtration Rate [...] reflect actual GFR. Performed By: #### 2 432-8, ####LYNCH[facility] LABORATORYCLIA [id number] [place] [address] [place] Glucose [Mass/Vol] 86 mg/dL Normal 74-99 [facility] Comment on above: Order Comment: Steve lemons Type: BLOOD SPECIMENOrdering Facility: [facility] Address: [address] [place] [address] Result Comment: The [place] [employer] (ADA) provides guidance for cutoff [...] Standards of Medical Care in Diabetes 2016, [place] [employer]. Diabetes Care. 2016.39(Suppl 1). Performed By: #### 2 4328, ####LYNCH[facility] LABORATORYCLIA [id number] [place] [address] [place] Potassium [Moles/Vol] 3.5 mmol/L Low 3.7-5.1 [facility] Comment on above: Order Comment: Steve lemons Type: BLOOD SPECIMENOrdering Facility: [facility] Address: [address] [place] [address] Performed By: #### 2 43211-09, ####LYNCHBURG LABORATORYCLIA [id number] [place] [address] [place] Protein [Mass/Vol] 5.3 g/dL Low 6.3-8.0 [facility] Comment on above: Order Comment: Steve lemons Type: BLOOD SPECIMENOrdering Facility: [facility] Address: [address] [place], [place] [address] Performed By: #### 2 4323-8, ####LYNCHBURG LABORATORYCLIA [id number] [place] [address] [place] Sodium [Moles/Vol] 128 mmol/L Low 136-144 [facility] Comment on above: Order Comment: Speci men Type: BLOOD SPECIMENOrdering Facility: [facility] Address: [address] [place] [address] Performed By: #### 2 4323-8, ####MCLAIN LABORATORYCLIA [id number] [place] [address] [place] Urea nitrogen [Mass/Vol] 5 mg/dL Low 7-21 [facility] Comment on above: Order Comment: Speci men Type: BLOOD SPECIMENOrdering Facility: [facility] Address: [address] [place] [address] Performed By: #### 2 4323-8, ####LYNCHBURG LABORATORYCLIA [id number] [place] [address] [place] Magnesium SerPl-mCncon 05-31 Magnesium [Mass/Vol] 1.7 mg/dL Normal 1.7-2.3 [facility] Comment on above: Order Comment: Speci men Type: BLOOD SPECIMENOrdering Facility: [facility] Address: [address] [place] [address] Performed By: #### 2 4323-8, ####MCLAIN LABORATORYCLIA [id number] [place] [address] [place] ANES POSTPROC EVALon 025 ANES POSTPROC EVAL Normal [facility] ANES PRE-OPon 05-30-2025 ANES PRE-OP Normal [facility] Bacteria Spec Anaerobe Culto n 05-30-2025 Bacteria identified Anaer cx Nom (Unsp spec) Negative [facility] Comment on above: Performed By: #### 6 35-3, 6462-6 ####[facility] LABCLIA [id number] [place] [address] [place] Bacteria identified Anaer cx Nom (Unsp spec) Negative [facility] Comment on above: Performed By: #### 6 35-3, 6462-6 ####[facility] LAB[facility]IA [id number] [place] [address] [place] [address] [place] Bacteria Wnd Culton 05-30-20 25 Bacteria identified Cx Nom (Wound) Abnormal [facility] Comment on above: Performed By: #### 6 35-3, 6462-6 ####[facility] LABCLIA [id number] [facility] [place] [address] [place] Bacteria identified Cx Nom (Wound) CULTURE, WOUND: No growth GRAM STAIN: No organisms seen No Polymorphonuclear Leukocytes Normal [facility] Comment on above: Performed By: #### 6 35-3, 6462-6 ####[facility] LABCLIA [id number] [address], [place] [address] [place] CBC panel Auto (Bld)on 05-30 Erythrocyte distribution width (RBC) [Ratio] 15.2 % High 11.5-15.0 [facility] Comment on above: Order Comment: Speci men Type: BLOOD SPECIMENOrdering Facility: [facility] Address: [address] [place] [address] Performed By: #### 5 8410-2 ####[facility] LABORATORYCLIA [id number] [place] [address] [place] Hematocrit (Bld) [Volume fraction] 24.5 % Low 36.0-46.0 [facility] Comment on above: Order Comment: Speci men Type: BLOOD SPECIMENOrdering Facility: [facility] Address: [address] [place] [address] Performed By: #### 5 8410-2 ####[facility] LABORATORYCLIA [id number] [place] [address] [place] Hemoglobin (Bld) [Mass/Vol] 9.0 g/dL Low 11.5-15.5 [facility] Comment on above: Order Comment: Speci men Type: BLOOD SPECIMENOrdering Facility: [facility] Address: [facility] [place] [address] Performed By: #### 5 8410-2 ####[facility] LABORATORYCLIA [id number] [address] MCH (RBC) [Entitic mass] 38.1 pg High 26.0-34.0 [facility] Comment on above: Order Comment: Speci men Type: BLOOD SPECIMENOrdering Facility: [facility] Address: [address] [place] [address] Performed By: #### 5 8410-2 ####[facility] LABORATORYCLIA [id number] [address] [place] MCHC (RBC) [Mass/Vol] 36.7 g/dL High 30.5-36.0 [facility] Comment on above: Order Comment: Speci men Type: BLOOD SPECIMENOrdering Facility: [facility] Address: [address] [place] [address] Performed By: #### 5 8410-2 ####[facility] LABORATORYCLIA [id number] [address] [place] MCV (RBC) [Entitic vol] 103.8 fL High 80.0-100.0 [facility] Comment on above: Order Comment: Speci men Type: BLOOD SPECIMENOrdering Facility: [facility] Address: [address] [place] [address] Performed By: #### 5 8410-2 ####[facility]ORATORYCLIA [id number] [address] Nucleated RBC (Bld) [#/Vol] 10*3/uL Normal <0.01 [facility] Comment on above: Order Comment: Speci men Type: BLOOD SPECIMENOrdering Facility: [facility] Address: [address] [place] [address] Performed By: #### 5 8410-2 ####[facility] LABORATORYCLIA [id number] [address] Platelet mean volume (Bld) [Entitic vol] 9.2 fL Normal 9.0-12.7 [facility] Comment on above: Order Comment: Speci men Type: BLOOD SPECIMENOrdering Facility: [facility] Address: [address] [place] [address] Performed By: #### 5 8410-2 ####[facility] LABORATORYCLIA [id number] [address] [place] Platelets (Bld) [#/Vol] 93 10*3/uL Low 150-400 [facility] Comment on above: Order Comment: Speci men Type: BLOOD SPECIMENOrdering Facility: [facility] Address: [address] [place] [address] Performed By: #### 5 8410-2 ####[facility] LABORATORYCLIA [id number] [place] [address] [place] RBC (Bld) [#/Vol] 2.36 10*6/uL Low 3.90-5.[address] [facility] Comment on above: Order Comment: Speci men Type: BLOOD SPECIMENOrdering Facility: [facility] Address: [address] [place] [address] Performed By: #### 5 8410-2 ####[facility] LABORATORYCLIA [id number] [place] [address] [place] WBC (Bld) [#/Vol] 4.82 10*3/uL Normal 3.70-11.[address] [facility] Comment on above: Order Comment: Speci men Type: BLOOD SPECIMENOrdering Facility: [facility] Address: [address] [place] [address] Performed By: #### 5 8410-2 ####[facility] LABORATORYCLIA [id number] [place] [id number] [facility] [place] CONSULTon 05-30-2025 CONSULT Normal [facility] CONSULT Normal [facility] CONSULT PROGon 05-30-2025 CONSULT PROG Normal [facility] CONSULT PROG Normal [facility] CONSULT PROG Normal [facility] Comprehensive metabolic 2000 panelon 05-30-2025 Albumin [Mass/Vol] 2.8 g/dL Low 3.9-4.9 [facility] Comment on above: Order Comment: Speci men Type: BLOOD SPECIMENOrdering Facility: [facility] Address: [address] [place] [address] Performed By: #### 2 4323-8, 2951-2, 73848-0, 2777-1 ####[facility] LABORATORYCLIA [id number] [address] STATES [facility] ALP [Catalytic activity/Vol] 190 U/L High 34-123 [facility] Comment on above: Order Comment: Speci men Type: BLOOD SPECIMENOrdering Facility: [facility] Address: [address] [place] [address] Performed By: #### 2 4323-8, 2951-2, 67654-4, 2777-1 ####[facility] LABORATORYCLIA [id number] [address] [place] ALT [Catalytic activity/Vol] 13 U/L Normal 7-38 [facility] Comment on above: Order Comment: Speci men Type: BLOOD SPECIMENOrdering Facility: [facility] Address: [address] [place] [address] Performed By: #### 2 4323-8, 2951-2, 43899-7, 2777-1 ####[facility] LABORATORYCLIA [id number] [address] Anion gap [Moles/Vol] 10 mmol/L Normal 8-15 [facility] Comment on above: Order Comment: Speci men Type: BLOOD SPECIMENOrdering Facility: [facility] Address: [address] [place] [address] Performed By: #### 2 4323-8, 2951-2, 00896-8, 2777-1 ####[facility] LABORATORYCLIA [id number] [address] AST [Catalytic activity/Vol] 41 U/L High 13-35 [facility] Comment on above: Order Comment: Speci men Type: BLOOD SPECIMENOrdering Facility: [facility] Address: [address] [place], [place] [address] Performed By: #### 2 4323-8, 2951-2, 19169-1, 2777-1 ####[facility] LABORATORYCLIA [id number] [address] [place] Bilirubin [Mass/Vol] 4.4 mg/dL High 0.2-1.3 [facility] Comment on above: Order Comment: Speci men Type: BLOOD SPECIMENOrdering Facility: [facility] Address: [address] [place] [place] [id number] Performed By: #### 2 4323-8, 2951-2, 90815-8, 2777-1 ####[facility] LABORATORYCLIA [id number] [place] [address] [place] Calcium [Mass/Vol] 7.9 mg/dL Low 8.5-10.2 [facility] Comment on above: Order Comment: Speci men Type: BLOOD SPECIMENOrdering Facility: [facility] Address: [address] [place] [address] Performed By: #### 2 4323-8, 2951-2, 98737-2, 2777-1 ####[facility] LABORATORYCLIA [id number] [place] [address] [place] Chloride [Moles/Vol] 88 mmol/L Low 98-107 [facility] Comment on above: Order Comment: Speci men Type: BLOOD SPECIMENOrdering Facility: [facility] Address: [address] [place] [id number] Performed By: #### 2 4323-8, 2951-2, 51131-3, 2777-1 ####[facility] LABORATORYCLIA [id number] [place] [address] [place] CO2 [Moles/Vol] 26 mmol/L Normal 22-30 [facility] Comment on above: Order Comment: Speci men Type: BLOOD SPECIMENOrdering Facility: [facility] Address: [address] [place] [id number] Performed By: #### 2 4323-8, 2951-2, 89548-9, 2777-1 ####[facility] LABORATORYCLIA [id number] [place] [id number] [place] Creatinine [Mass/Vol] 0.42 mg/dL Low 0.58-0.96 [facility] Comment on above: Order Comment: Speci men Type: BLOOD SPECIMENOrdering Facility: [facility] Address: [address] [place] [id number] Performed By: #### 2 4323-8, 2951-2, 75668-6, 2777-1 ####[facility] LABORATORYCLIA [id number] [address] [place] eGFRcr SerPlBld CKD-EPI 2020 103 mL/min/1.73m??? Normal >=60 [facility] Comment on above: Order Comment: Steve lemons Type: BLOOD SPECIMENOrdering Facility: [facility] Address: [address] [place] [address] Result Comment: Kaylyn mated Glomerular Filtration Rate [...] GFR. Performed By: #### 2 4323-8, 2951-2, 19914-9, 2777-1 ####[facility] LABORATORYCLIA [id number] [address] STATES OF [facility] Glucose [Mass/Vol] 101 mg/dL High 74-99 [facility] Comment on above: Order Comment: Steve lemons Type: BLOOD SPECIMENOrdering Facility: [facility] Address: [address] [place] [address] Result Comment: The [place] Diabetes Association (ADA) provides guidance for cutoff [...] Standards of Medical Care in Diabetes 2016, [place] [employer]. Diabetes Care. 2016.39(Suppl 1). Performed By: #### 2 4323-8, 2951-2, 41322-4, 2777-1 ####[facility] LABORATORYCLIA [id number] [place] [address] [place] Potassium [Moles/Vol] 3.5 mmol/L Low 3.7-5.1 [facility] Comment on above: Order Comment: Speci men Type: BLOOD SPECIMENOrdering Facility: [facility] Address: [address] [place] [address] Performed By: #### 2 4323-8, 2951-2, 24984-0, 2777-1 ####[facility] LABORATORYCLIA [id number] [place] [address] [place] Protein [Mass/Vol] 5.0 g/dL Low 6.3-8.0 [facility] Comment on above: Order Comment: Speci men Type: BLOOD SPECIMENOrdering Facility: [facility] Address: [address] [place] [address] Performed By: #### 2 4323-8, 2951-2, 38877-4, 2777-1 ####[facility] LABORATORYCLIA [id number] [address] [place] Urea nitrogen [Mass/Vol] 6 mg/dL Low 7-21 [facility] Comment on above: Order Comment: Speci men Type: BLOOD SPECIMENOrdering Facility: [facility] Address: [address] [place] [address] Performed By: #### 2 4323-8, 2951-2, 78816-6, 2777-1 ####[facility] LABORATORYCLIA [id number] [place] [id number] [facility] [place] Cortbrigido Lanel-Darcy 05-30-20 25 Cortisol [Mass/Vol] 4.8 ug/dL Normal 4.8-19.[address] [facility] Comment on above: Order Comment: Speci men Type: BLOOD SPECIMENOrdering Facility: [facility] Address: [address] [place] [address] Result Comment: Prov ided reference range is from 6-10 AM sample collection time.Cortisol Reference Range: 6-10 AM = 4.8-19.5 ug/dL, 4-8 PM = 2.5-11.9 ug/dL Performed By: #### 2 143-6 ####[facility] LABCLIA [id number] [facility] CENTERBethel [id number] [place], [place] [address] [place] Folate SerPl-mCncon 05-30-20 25 Folate [Mass/Vol] 2.8 ng/mL Low >4.7 [facility] Comment on above: Order Comment: Speci men Type: BLOOD SPECIMENOrdering Facility: [facility] Address: [address] [place] [address] Performed By: #### 2 132-9, 2284-8 ####[facility] LABORATORYCLIA [id number] [place] [address] [place] Magnesium [facility] Magnesium [Mass/Vol] 1.9 mg/dL Normal 1.7-2.3 [facility] Comment on above: Order Comment: Speci men Type: BLOOD SPECIMENOrdering Facility: [facility] Address: [address] [place] [address] Performed By: #### 1 9123-9, 2951-2 ####[facility] LABORATORYCLIA [id number] [place] [id number] [place] NUTRITIONon 05-30-2025 NUTRITION Normal [facility] OPERATIVE NOon 05-30-2025 OPERATIVE NO Normal [facility] PHOSPHATIDYLETHANOL (PETH)on 05-30-2025 EER PETH See Note Normal [facility] Comment on above: Order Comment: Speci men Type: BLOOD SPECIMENOrdering Facility: [facility] Address: [address] [place] [address] Result Comment: Auth orized individuals can access the [employer] Enhanced Reportwith an [employer] Connect account using the following link.Your local lab can assist you in obtaining the patientreport if you don't have a Connect account.[email or web address] Performed By: #### P ETH ####[facility]ORATORIESCLIA [id number] [place] [address] PETH 16:0/18.2 (PLPETH) 118 ng/mL Normal [facility] Comment on above: Order Comment: Speci men Type: BLOOD SPECIMENOrdering Facility: [facility] Address: [address] [place] [address] Result Comment: Refe rence ranges are not well established. Performed By: #### P ETH ####[facility] LABORATORIESCLIA [id number] [place] [address] PETH 16:0/18:1 (POPETH) 199 ng/mL [facility] Comment on above: Order Comment: Speci men Type: BLOOD SPECIMENOrdering Facility: [facility] Address: [address] [place] [address] Result Comment: PEth 16:0/18:1 (POPEth)Less than 10 ng/mL............Not detectedLess than 20 ng/mL............Abstinence or light ybfqhcjrthaagohvss35 - 200 ng/mL................Moderate alcohol consumptionGreater than 200 ng/mL........Heavy alcohol consumption or chronicalcohol use(Reference: Ric Lujan and Bethel Long 2018 J. Forensic Sci) Performed By: #### P ETH ####[facility] LABORATORIESCLIA [id number] [place] [address] PETH INTERPRETATION See Comment [facility] Comment on above: Order Comment: Speci men Type: BLOOD SPECIMENOrdering Facility: [facility] Address: [address] [place] [address] Result Comment: Phos phatidylethanol (PEth) is a [...] was developed and its performance characteristicsdetermined by [facility]. It has not been cleared orapproved by the U.S. Food and Drug Administration. This test wasperformed in a CLIA-certified laboratory and is intended forclinical purposes.Performed By: [facility] [place], [place] [address]Stloifgzbk Director: Hugo Dsouza MD, PhDCLIA Number: [id number] Performed By: #### P ETH ####[facility] HOSPITALIA [id number] [place] [address] Pathology biopsy report Emir (Tiss)on 05-30-2025 AP DISCLAIMER [facility] Comment on above: Order Comment: Speci cristo Type: TISSUE SPECIMENOrdering Facility: [facility] Address: [address] [place] [address] Result Comment: Ron bass Developed Test (LDT) Disclaimer:Performance characteristics of immunohistochemical, immunofluorescent, and chromogenic in-situ hybridization tests have been determined by the performing laboratory within the [facility] [place] [facility] Department of Pathology and Laboratory Medicine ([facility], [facility], [facility], [facility], [facility], [facility], or [facility]) in a manner consistent with CLIA requirements. One or more of these tests may not have been cleared or approved by the FDA. The [facility] Department of Pathology and Laboratory Medicine is regulated under CLIA as qualified to perform high-complexity testing. These tests are used for clinical purposes. These should not be regarded as investigational or for research. Positive and negative controls stain appropriately. Performed By: #### 6 6121-5 ####[facility] LABCLIA [id number] [place] [address] [place] CASE REPORT Normal [facility] Comment on above: Order Comment: Speci men Type: TISSUE SPECIMENOrdering Facility: [facility] Address: [address] [place] [address] Result Comment: Surg ical Pathology Report Case: [id number] Provider: Amanda Dougherty DPM Collected: 05/30/2025 12:59 PMOrdering Location: [facility] Surgery Received: 05/30/2025 02:21 PMPathologist: Ayanna Huerta MDSpecimens: A) - Skin Lesion/Soft Tissue Ulcer (Specify site in comment), right lower leg ulcer tissue biopsy B) - Skin Lesion/Soft Tissue Ulcer (Specify site in comment), left lower leg ulcer tissue biopsy Performed By: #### 6 6121-5 ####[facility] [id number] [address] [place] CLINICAL HISTORY Normal [facility] Comment on above: Order Comment: Speci men Type: TISSUE SPECIMENOrdering Facility: [facility] Address: [address] [place] [address] Result Comment: Pre- op diagnosis:Wound infection [T14.8XXA, L08.9]Cellulitis of left lower extremity [L03.116]Cellulitis of right lower extremity [L03.115] Performed By: #### 6 6121-5 ####[facility] [id number] [address] DIAGNOSIS COMMENT Normal [facility] Comment on above: Order Comment: Speci men Type: TISSUE SPECIMENOrdering Facility: [facility] Address: [address] [place] [address] Result Comment: A, B . The histologic [...] is recommended. Performed By: #### 6 6121-5 ####[facility] LABCLIA [id number] [address] FINAL DIAGNOSIS [facility] Comment on above: Order Comment: Speci men Type: TISSUE SPECIMENOrdering Facility: [facility] Address: [address] [place] [address] Result Comment: A. S kin, right lower leg, punch biopsy:- Ulcer with stasis changes and mixed acute and chronic dermal inflammation, see comment.B. Skin, left lower leg, punch biopsy:- Ulcer with dermal fibrosis and mixed acute and chronic inflammation, see comment.MP/TN at 1624 EDT Performed By: #### 6 6121-5 ####[facility] LABCLIA [id number] [address] FINAL PERFORMING LAB Normal [facility] Comment on above: Order Comment: Speci cristo Type: TISSUE SPECIMENOrdering Facility: [facility] Address: [address] [place] [address] Result Comment: Diag nostic interpretation performed at: [facility], [address] [place] [address] CLIA# [id number] Director: Moises Gonzalez MD Performed By: #### 6 6121-5 ####[facility] LABCLIA [id number] [address] [place] GROSS DESCRIPTION [facility] Comment on above: Order Comment: Speci men Type: TISSUE SPECIMENOrdering Facility: [facility] Address: [address] [place] [address] Result Comment: A. S kin Lesion/Soft Tissue [...] 30, 2025 4:26 PMGross examination performed at [facility], [address] [place] [address] Performed By: #### 6 6121-5 ####[facility] LABCLIA [id number] [place] [address] [place] Phosphate SerPl-mCncon 05-30 Phosphate [Mass/Vol] 2.6 mg/dL Low 2.7-4.8 [facility] Comment on above: Order Comment: Speci men Type: BLOOD SPECIMENOrdering Facility: [facility] Address: [address] [place] [address] Performed By: #### 2 4323-8, 2951-2, 68669-9, 2777-1 ####[facility] LABORATORYCLIA [id number] [place] [address] [place] Procalcitonin SerPl-mCncon 0 05-30-2025 Procalcitonin [Mass/Vol] 0.29 ng/mL High <0.09 [facility] Comment on above: Order Comment: Speci men Type: BLOOD SPECIMENOrdering Facility: [facility] Address: [address] [place] [address] Result Comment: For a guided interpretation of test results, please visit the Change in Procalcitonin Calculator, [email or web address]. Performed By: #### 2 4323-8, 2951-2, 25325-8, 2777-1 ####[facility] LABORATORYCLIA [id number] [place] [address] [place] Sodium SerPl-sCncon 05-30-20 25 Sodium [Moles/Vol] 125 mmol/L Low 136-144 [facility] Comment on above: Order Comment: Speci men Type: BLOOD SPECIMENOrdering Facility: [facility] Address: [facility] [place] [phone] Performed By: #### 1 9123-9, 2951-2 ####[facility] LABORATORYCLIA [id number] [place] [address] [place] Sodium [Moles/Vol] 124 mmol/L Low 136-144 [facility] Comment on above: Order Comment: Speci men Type: BLOOD SPECIMENOrdering Facility: [facility] Address: [address] [place], [place] [address] [phone] Performed By: #### 2 4323-8, 2951-2, 42214-2, 2777-1 ####[facility] LABORATORYCLIA [id number] [place] [address] [place] Vit B12 SerPl-ncon 025 Cobalamin (Vitamin B12) [Mass/Vol] 1660 pg/mL High 232-1245 [facility] Comment on above: Order Comment: Speci men Type: BLOOD SPECIMENOrdering Facility: [facility] Address: [address] [place], [place] [address] [address] Performed By: #### 2 132-9, 2284-8 ####[facility] LABORATORYCLIA [id number] [place] [address] [place] 25(OH)D3 SerPl-mCncon 2024 25-hydroxyvitamin D3 [Mass/Vol] 61.8 ng/mL Normal 31.0-80.0 [facility] Comment on above: Order Comment: Speci men Type: BLOOD SPECIMENOrdering Facility: [facility] Address: [facility] [place] [address] Performed By: #### 1 989-3 ####[facility] LABCLIA [id number] [address] [address] [place] ALLIED HEALTHon 05-29-2025 ALLIED HEALTH Normal [facility] Bacteria Bld Culton 05-29-20 25 Bacteria identified Cx Nom (Bld) CULTURE, BLOOD: No growth 5 days Normal [facility] Comment on above: Performed By: #### 6 00-7 ####[facility] LABCLIA [id number] [address] [place] Bacteria identified Cx Nom (Bld) CULTURE, BLOOD: No growth 5 days GRAM STAIN: This blood culture had less than the recommended 8 ml per bottle, which could decrease the sensitivity of the test. Normal [facility] Comment on above: Performed By: #### 6 00-7 ####[facility] LABCLIA [id number] [facility]INICD [address], [facility]95 [place] Bacteria Ur Culton Bacteria identified Cx Nom (U) CULTURE, URINE: No growth (<1,000 CFU/ml) [facility] Comment on above: Performed By: #### 6 30-4 ####[facility] LABCLIA [id number] [address], [place] [address] [place] CASE MGT INIT ASSESon 2024 CASE MGT INIT [facility] CBC panel Auto (Bld)on 05-29 Erythrocyte distribution width (RBC) [Ratio] 15.5 % High 11.5-15.0 [facility] Comment on above: Order Comment: Speci men Type: BLOOD SPECIMENOrdering Facility: [facility] Address: [address] [place] [address] Performed By: #### 5 8410-2 ####[facility] LABORATORYCLIA [id number] [place] [id number] [place] Hematocrit (Bld) [Volume fraction] 26.2 % Low 36.0-46.0 [facility] Comment on above: Order Comment: Speci men Type: BLOOD SPECIMENOrdering Facility: [facility] Address: [address] [place] [address] Performed By: #### 5 8410-2 ####[facility] LABORATORYCLIA [id number] [place] [id number] [place] Hemoglobin (Bld) [Mass/Vol] 9.6 g/dL Low 11.5-15.5 [facility] Comment on above: Order Comment: Speci men Type: BLOOD SPECIMENOrdering Facility: [facility] Address: [address] [place] [address] Performed By: #### 5 8410-2 ####[facility] LABORATORYCLIA [id number] [address] MCH (RBC) [Entitic mass] 37.9 pg High 26.0-34.0 [facility] Comment on above: Order Comment: Speci men Type: BLOOD SPECIMENOrdering Facility: [facility] Address: [address] [place] [address] Performed By: #### 5 8410-2 ####[facility] LABORATORYCLIA [id number] [address] MCHC (RBC) [Mass/Vol] 36.6 g/dL High 30.5-36.0 [facility] Comment on above: Order Comment: Speci men Type: BLOOD SPECIMENOrdering Facility: [facility] Address: [address] [place] [address] Performed By: #### 5 8410-2 ####[facility] LABORATORYCLIA [id number] [address] MCV (RBC) [Entitic vol] 103.6 fL High 80.0-100.0 [facility] Comment on above: Order Comment: Speci men Type: BLOOD SPECIMENOrdering Facility: [facility] Address: [address] [place] [address] Performed By: #### 5 8410-2 ####[facility]IN LABORATORYCLIA [id number] [address] Nucleated RBC (Bld) [#/Vol] 10*3/uL Normal <0.01 [facility] Comment on above: Order Comment: Speci men Type: BLOOD SPECIMENOrdering Facility: [facility] Address: [address] [place] [address] Performed By: #### 5 8410-2 ####[facility]IN LABORATORYCLIA [id number] [place] [address] [place] Platelet mean volume (Bld) [Entitic vol] 9.5 fL Normal 9.0-12.7 [facility] Comment on above: Order Comment: Speci men Type: BLOOD SPECIMENOrdering Facility: [facility] Address: [address] [place] [address] Performed By: #### 5 8410-2 ####M[facility]IN LABORATORYCLIA [id number] [place] [id number] [place] Platelets (Bld) [#/Vol] 94 10*3/uL Low 150-400 [facility] Comment on above: Order Comment: Speci men Type: BLOOD SPECIMENOrdering Facility: [facility] Address: [address] [place] [address] Result Comment: No c lot detected. Performed By: #### 5 8410-2 ####M[facility]IN LABORATORYCLIA [id number] [place] [address] [place] RBC (Bld) [#/Vol] 2.53 10*6/uL Low 3.90-5.[address] [facility] Comment on above: Order Comment: Speci men Type: BLOOD SPECIMENOrdering Facility: [facility] Address: [address] [place] [address] Performed By: #### 5 8410-2 ####[facility] LABORATORYCLIA [id number] [address] [place] WBC (Bld) [#/Vol] 6.38 10*3/uL Normal 3.70-11.[address] [facility] Comment on above: Order Comment: Speci men Type: BLOOD SPECIMENOrdering Facility: [facility] Address: [address] [place] [address] Performed By: #### 5 8410-2 ####M[facility]IN LABORATORYCLIA [id number] [address] [place] CONSULTon 05-29-2025 CONSULT Normal [facility] CONSULT Normal [facility] CONSULT Normal [facility] CONSULT Normal [facility] CONSULT Normal [facility] COPPER BLOODon 05-29-2025 Copper [Mass/Vol] 72 ug/dL Low 80-155 [facility] Comment on above: Order Comment: Speci men Type: BLOOD SPECIMENOrdering Facility: [facility] Address: [address] [place] [address] Result Comment: This test was developed, and its performance characteristics determined by the [facility] Department of Pathology and Laboratory Medicine. It has not been cleared or approved by the FDA. The [facility] Department of Pathology and Laboratory Medicine is regulated under CLIA as qualified to perform high-complexity testing. This test is used for clinical purposes. It should not be regarded as investigational or for research. Performed By: #### 5 763-8, COPPER ####[facility] LABCLIA [id number] [place] [address] [place] CT ABD/PEL WO IVCONon 2024 CT ABD/PEL WO IVCON Normal [facility] Comprehensive metabolic 2000 panelon 05-29-2025 Albumin [Mass/Vol] 2.7 g/dL Low 3.9-4.9 [facility] Comment on above: Order Comment: Speci men Type: BLOOD SPECIMENOrdering Facility: [facility] Address: [address] [place] [address] Performed By: #### 1 9123-9, 3084-1, 50299-4, 2777-1, 3016-3, 65734-2 ####MCLAIN LABORATORYCLIA [id number] [place] [address] [place] ALP [Catalytic activity/Vol] 222 U/L High 34-123 [facility] Comment on above: Order Comment: Speci men Type: BLOOD SPECIMENOrdering Facility: [facility] Address: [address] [place] [address] Performed By: #### 1 9123-9, 3084-1, 98112-1, 2777-1, 3016-3, 36767-7 ####M[facility]IN LABORATORYCLIA [id number] [place] [address] [place] ALT [Catalytic activity/Vol] 14 U/L Normal 7-38 [facility] Comment on above: Order Comment: Speci men Type: BLOOD SPECIMENOrdering Facility: [facility] Address: [address], [place] [address] Performed By: #### 1 9123-9, 3084-1, 12250-0, 2777-1, 3016-3, 45700-9 ####[facility] LABORATORYCLIA [id number] [place] [address] [place] Anion gap [Moles/Vol] 12 mmol/L Normal 8-15 [facility] Comment on above: Order Comment: Speci men Type: BLOOD SPECIMENOrdering Facility: [facility] Address: [address] [place] [address] Performed By: #### 1 9123-9, 3084-1, 28071-3, 2777-1, 3016-3, 68366-2 ####[facility] LABORATORYCLIA [id number] [place] [address] [place] AST [Catalytic activity/Vol] 49 U/L High 13-35 [facility] Comment on above: Order Comment: Speci men Type: BLOOD SPECIMENOrdering Facility: [facility] Address: [address] [place] [address] Performed By: #### 1 9123-9, 3084-1, 28657-6, 2777-1, 3016-3, 61945-9 ####[facility] LABORATORYCLIA [id number] [place] [address] [place] Bilirubin [Mass/Vol] 5.7 mg/dL High 0.2-1.3 [facility] Comment on above: Order Comment: Speci men Type: BLOOD SPECIMENOrdering Facility: [facility] Address: [address] [place], [place] [address] Performed By: #### 1 9123-9, 3084-1, 96327-9, 2777-1, 3016-3, 03541-5 ####[facility] LABORATORYCLIA [id number] [place] [address] [place] Calcium [Mass/Vol] 7.8 mg/dL Low 8.5-10.2 [facility] Comment on above: Order Comment: Speci men Type: BLOOD SPECIMENOrdering Facility: [facility] Address: [address] [place] [address] Performed By: #### 1 9123-9, 3084-1, 14467-4, 2777-1, 3016-3, 52283-8 ####[facility] LABORATORYCLIA [id number] [place] [address] [place] Chloride [Moles/Vol] 87 mmol/L Low 98-107 [facility] Comment on above: Order Comment: Speci men Type: BLOOD SPECIMENOrdering Facility: [facility] Address: [address] [place] [address] Performed By: #### 1 9123-9, 3084-1, 86861-1, 2777-1, 3016-3, 73885-7 ####[facility] LABORATORYCLIA [id number] [place] [id number] [place] CO2 [Moles/Vol] 26 mmol/L Normal 22-30 [facility] Comment on above: Order Comment: Speci men Type: BLOOD SPECIMENOrdering Facility: [facility] Address: [address] [place] [address] Performed By: #### 1 9123-9, 3084-1, 36560-8, 2777-1, 3016-3, 37583-5 ####[facility] LABORATORYCLIA [id number] [place] [address] [place] Creatinine [Mass/Vol] 0.47 mg/dL Low 0.58-0.96 [facility] Comment on above: Order Comment: Speci men Type: BLOOD SPECIMENOrdering Facility: [facility] Address: [address] [place] [address] Performed By: #### 1 9123-9, 3084-1, 26348-3, 2777-1, 3016-3, 78330-3 ####[facility] LABORATORYCLIA [id number] [place] [id number] [place] eGFRcr SerPlBld CKD-EPI 2020 101 mL/min/1.73m??? Normal >=60 [facility] Comment on above: Order Comment: Speci men Type: BLOOD SPECIMENOrdering Facility: [facility] Address: [address] [place] [address] Result Comment: Kaylyn mated Glomerular Filtration Rate [...] GFR. Performed By: #### 1 9123-9, 3084-1, 76838-3, 2777-1, 3016-3, 33415-2 ####[facility] LABORATORYCLIA [id number] [place] [address] [place] Glucose [Mass/Vol] 90 mg/dL Normal 74-99 [facility] Comment on above: Order Comment: Steve lemons Type: BLOOD SPECIMENOrdering Facility: [facility] Address: [address] [place] [address] Result Comment: The [place] Diabetes [employer] (ADA) provides guidance for cutoff [...] Standards of Medical Care in Diabetes 2016, [place] [employer]. Diabetes Care. 2016.39(Suppl 1). Performed By: #### 1 9123-9, 3084-1, 54585-9, 7-1, 3016-3, 10559-6 ####[facility] LABORATORYCLIA [id number] [place] [address] [place] Potassium [Moles/Vol] 2.6 mmol/L Low 3.7-5.1 [facility] Comment on above: Order Comment: Steve lemons Type: BLOOD SPECIMENOrdering Facility: [facility] Address: [address] [place] [id number] Performed By: #### 1 9123-9, 3084-1, 59780-7, 2777-1, 3016-3, 57578-5 ####[facility] LABORATORYCLIA [id number] [place] [address] [place] Protein [Mass/Vol] 5.3 g/dL Low 6.3-8.0 [facility] Comment on above: Order Comment: Speci men Type: BLOOD SPECIMENOrdering Facility: [facility] Address: [address] [place] [address] Performed By: #### 1 9123-9, 3084-1, 80865-6, 2777-1, 3016-3, 27306-4 ####[facility] LABORATORYCLIA [id number] [place] [id number] [place] Sodium [Moles/Vol] 125 mmol/L Low 136-144 [facility] Comment on above: Order Comment: Speci men Type: BLOOD SPECIMENOrdering Facility: [facility] Address: [address] [place] [address] Performed By: #### 1 9123-9, 3084-1, 70358-2, 2777-1, 3016-3, 92489-0 ####[facility] LABORATORYCLIA [id number] [place] [address] [place] Urea nitrogen [Mass/Vol] 6 mg/dL Low 7-21 [facility] Comment on above: Order Comment: Speci men Type: BLOOD SPECIMENOrdering Facility: [facility] Address: [address] [place] [address] Performed By: #### 1 9123-9, 3084-1, 97347-2, 2777-1, 3016-3, 36904-0 ####[facility] LABORATORYCLIA [id number] [place] [id number] [place] ECG COMPLETEon 05-29-2025 ECG COMPLETE Normal [facility] Lactate (Bld) [Moles/Vol]on 05-29-2025 Lactate [Moles/Vol] 1.7 mmol/L Normal 0.5-2.[address] [facility] Comment on above: Order Comment: Speci men Type: BLOOD SPECIMENOrdering Facility: [facility] Address: [address] [place] [address] Performed By: #### 3 2693-4 ####[facility] LABORATORYCLIA [id number] [address] Magnesium [facility]29 Magnesium [Mass/Vol] 1.3 mg/dL Low 1.7-2.3 [facility] Comment on above: Order Comment: Speci men Type: BLOOD SPECIMENOrdering Facility: [facility] Address: [address] [place] [address] Performed By: #### 1 9123-9, 3084-1, 47552-8, 2777-1, 3016-3, 55156-4 ####[facility] LABORATORYCLIA [id number] [address] [place] NT-proBNP [facility] Natriuretic peptide.B prohormone N-Terminal [Mass/Vol] 2188 pg/mL High <125 [facility] Comment on above: Order Comment: Speci men Type: BLOOD SPECIMENOrdering Facility: [facility] Address: [address] [place] [address] Performed By: #### 1 9123-9, 3084-1, 71861-4, 2777-1, 3016-3, 31869-8 ####[facility] LABORATORYCLIA [id number] [address] [place] Osmolality Uron 05-29-2025 Osmolality (U) [Osmolality] 516 mosm/kg Normal 50-1200 [facility] Comment on above: Order Comment: Speci men Type: URINE SPECIMENOrdering Facility: [facility] Address: [address] [place] [address] Performed By: #### 2 695-5 ####[facility] LABCLIA [id number] [place] [address] [place] PHOSPHATIDYLETHANOL (PETH)on 05-29-2025 EER PETH See Note Normal [facility] Comment on above: Order Comment: Speci men Type: BLOOD SPECIMENOrdering Facility: [facility] Address: [address] [place] [address] Result Comment: Auth orized individuals can access the Say[employer] Enhanced Reportwith an [employer] Connect account using the following link.Your local lab can assist you in obtaining the patientreport if you don't have a Connect account.[email or web address] Performed By: #### P ETH ####[facility] LABORATORIESCLIA [id number] [place] [address] PETH 16:0/18.2 (PLPETH) 148 ng/mL [facility] Comment on above: Order Comment: Speci men Type: BLOOD SPECIMENOrdering Facility: [facility] Address: [address] [place] [address] Result Comment: Refe rence ranges are not well established. Performed By: #### P ETH ####[facility] NeediumCLIA [id number] [place] [address] PETH 16:0/18:1 (POPETH) 249 ng/mL [facility] Comment on above: Order Comment: Speci men Type: BLOOD SPECIMENOrdering Facility: [facility] Address: [address] [place] [address] Result Comment: PEth 16:0/18:1 (POPEth)Less than 10 ng/mL............Not detectedLess than 20 ng/mL............Abstinence or light - 200 ng/mL................Moderate alcohol consumptionGreater than 200 ng/mL........Heavy alcohol consumption or chronicalcohol use(Reference: Ric Lujan and Bethel Long 2018 J. Forensic Sci) Performed By: #### P ETH ####[facility] LABORATORIESCLIA [id number] [place] [address] PETH INTERPRETATION See Comment Normal [facility] Comment on above: Order Comment: Speci men Type: BLOOD SPECIMENOrdering Facility: [facility] Address: [address] [place] [address] Result Comment: Phos phatidylethanol (PEth) is a [...] was developed and its performance characteristicsdetermined by [facility]. It has not been cleared orapproved by the U.S. Food and Drug Administration. This test wasperformed in a CLIA-certified laboratory and is intended forclinical purposes.Performed By: [facility] [place], [place] [address]Bqkoeoxniq Director: Hugo Dsouza MD, PhDCLIA Number: [id number] Performed By: #### P ETH ####[facility] LABORATORIESIA [id number] [place] [address] Phosphate [facility] Phosphate [Mass/Vol] 1.7 mg/dL Low 2.7-4.8 [facility] Comment on above: Order Comment: Speci men Type: BLOOD SPECIMENOrdering Facility: [facility] Address: [address] [address] Performed By: #### 1 9123-9, 3084-1, 57869-3, 2777-1, 3016-3, 73153-5 ####[facility] LABORATORYCLIA [id number] [place] [address] [place] STAPHYLOCOCCUS AUREUS AND MR SA SCREEN, PCR, NASALon 05-29-2025 S. aureus and MRSA panel JAMESON+probe (Nose) Not detected Normal Not Detected [facility] Comment on above: Order Comment: Speci men Type: SWABOrdering Facility: [facility] Address: [address] [place] [address] Performed By: #### S APCR ####[facility] LABCLIA [id number] [place] [address] [place] Sodium ?Tm Ur-sCncon 025 Sodium Unsp time (U) [Moles/Vol] <20 Normal 14-216 [facility] Comment on above: Order Comment: Speci men Type: URINE SPECIMENOrdering Facility: [facility] Address: [address] [place] [address] Performed By: #### 3 5678-2 ####[facility] LABCLIA [id number] [place] [address] [place] Sodium SerPl-sCncon 05-29-20 Sodium [Moles/Vol] 124 mmol/L Low 136-144 [facility] Comment on above: Order Comment: Speci men Type: BLOOD SPECIMENOrdering Facility: [facility] Address: [address] [place] [address] Performed By: #### 2 951-2 ####[facility] LABORATORYCLIA [id number] [place] [address] [place] Sodium [Moles/Vol] 121 mmol/L Low 136-144 [facility] Comment on above: Order Comment: Speci men Type: BLOOD SPECIMENOrdering Facility: [facility] Address: [address] [place] [address] Performed By: #### 2 951-2 ####[facility] LABORATORYCLIA [id number] [place] [address] [place] TSH SerPl-aCncon 05-29-2025 TSH Qn 0.975 m[IU]/L Normal 0.270-4.20 0 [facility] Comment on above: Order Comment: Speci men Type: BLOOD SPECIMENOrdering Facility: [facility] Address: [address] [place], [place] [address] Performed By: #### 1 9123-9, 3084-1, 07845-3, 2777-1, 3016-3, 75954-2 ####[facility] LABORATORYCLIA [id number] [place] [address] [place] US ABD RIGHT UPPER QUADRANTo n 05-29-2025 US ABD RIGHT UPPER QUADRANT Normal [facility] US ANKLE BRACHIAL INDICESon 05-29-2025 US ANKLE BRACHIAL INDICES Normal [facility] Urate SerPl-mCncon Urate [Mass/Vol] 2.4 mg/dL Low 2.5-6.6 [facility] Comment on above: Order Comment: Speci men Type: BLOOD SPECIMENOrdering Facility: [facility] Address: [address] [place] [address] Performed By: #### 1 9123-9, 3084-1, 68770-2, 2777-1, 3016-3, 65750-6 ####[facility] LABORATORYCLIA [id number] [place] [address] [facility] [place] VITAMIN B6/PYRIDOXINon 05-29 VITAMIN B6 6.4 nmol/L Low 20.0-125.0 [facility] Comment on above: Order Comment: Speci men Type: BLOOD SPECIMENOrdering Facility: [facility] Address: [address] [place] [address] Result Comment: INTE RPRETIVE INFORMATION: Vitamin B6 (Pyridoxal 5-Phosphate)Pyridoxal 5'-phosphate measured in a specimen collected followingan 8-hour or overnight fast accurately indicates vitamin P9ioldgmhozvo status. Non-fasting specimen concentration reflectsrecent vitamin intake.This test was developed and its performance characteristicsdetermined by [facility]. It has not been cleared orapproved by the [place] Food and Drug Administration. This test wasperformed in a CLIA certified laboratory and is intended forclinical purposes.Performed By: [facility] [place] [id number] Director: Hugo Dsozua MD, PhDCLIA Number: [id number] Performed By: #### V ITB6 ####[facility] LABORATORIESCLIA [id number] [place] [address] Zinc SerPl-mCncon 05-29-2025 Zinc [Mass/Vol] 33 ug/dL Low 60-120 [facility] Comment on above: Order Comment: Speci men Type: BLOOD SPECIMENOrdering Facility: [facility] Address: [address] [place] [address] Result Comment: This test was developed, and its performance characteristics determined by the [facility] Department of Pathology and Laboratory Medicine. It has not been cleared or approved by the FDA. The [facility] Department of Pathology and Laboratory Medicine is regulated under CLIA as qualified to perform high-complexity testing. This test is used for clinical purposes. It should not be regarded as investigational or for research. Performed By: #### 5 763-8, COPPER ####[facility] LABCLIA [id number] [place] [address] [place] CBC W Auto Differential pane l (Bld)on 05-28-2025 Basophils (Bld) [#/Vol] 10*3/uL Normal <0.11 [facility] Comment on above: Order Comment: Speci men Type: BLOOD SPECIMENOrdering Facility: [facility] Address: [address] [place] [address] Performed By: #### 5 7021-8 ####[facility] LABORATORYCLIA [id number] [address] [place] Basophils/100 WBC (Bld) 0.3 % Normal [facility] Comment on above: Order Comment: Speci men Type: BLOOD SPECIMENOrdering Facility: [facility] Address: [address] [place] [address] Performed By: #### 5 7021-8 ####[facility] LABORATORYCLIA [id number] [place] [id number] [place] Differential cell count method Nom (Bld) Auto Normal [facility] Comment on above: Order Comment: Speci men Type: BLOOD SPECIMENOrdering Facility: [facility] Address: [address] [place] [address] Performed By: #### 5 7021-8 ####[facility] LABORATORYCLIA [id number] [place] [address] [place] Eosinophils (Bld) [#/Vol] 10*3/uL Normal <0.46 [facility] Comment on above: Order Comment: Speci men Type: BLOOD SPECIMENOrdering Facility: [facility] Address: [address] [place] [address] Performed By: #### 5 7021-8 ####[facility] LABORATORYCLIA [id number] [address] Eosinophils/100 WBC (Bld) 0.1 % Normal [facility] Comment on above: Order Comment: Speci men Type: BLOOD SPECIMENOrdering Facility: [facility] Address: [address] [place] [address] Performed By: #### 5 7021-8 ####[facility] LABORATORYCLIA [id number] [address] [place] Erythrocyte distribution width (RBC) [Ratio] 15.3 % High 11.5-15.0 [facility] Comment on above: Order Comment: Speci men Type: BLOOD SPECIMENOrdering Facility: [facility] Address: [address] [place] [address] Performed By: #### 5 7021-8 ####[facility] LABORATORYCLIA [id number] [address] [place] Hematocrit (Bld) [Volume fraction] 28.8 % Low 36.0-46.0 [facility] Comment on above: Order Comment: Speci men Type: BLOOD SPECIMENOrdering Facility: [facility] Address: [address] [place] [address] Performed By: #### 5 7021-8 ####[facility] LABORATORYCLIA [id number] [address] [place] Hemoglobin (Bld) [Mass/Vol] 10.8 g/dL Low 11.5-15.5 [facility] Comment on above: Order Comment: Speci men Type: BLOOD SPECIMENOrdering Facility: [facility] Address: [address] [place] [address] Performed By: #### 5 7021-8 ####[facility] LABORATORYCLIA [id number] [address] Immature granulocytes (Bld) [#/Vol] 0.04 10*3/uL Normal <0.10 [facility] Comment on above: Order Comment: Speci men Type: BLOOD SPECIMENOrdering Facility: [facility] Address: [address] [place] [address] Performed By: #### 5 7021-8 ####[facility] LABORATORYCLIA [id number] [address] Immature granulocytes/100 WBC (Bld) 0.5 % Normal [facility] Comment on above: Order Comment: Speci men Type: BLOOD SPECIMENOrdering Facility: [facility] Address: [address] [place] [address] Performed By: #### 5 7021-8 ####[facility] LABORATORYCLIA [id number] [address] [place] Lymphocytes (Bld) [#/Vol] 0.58 10*3/uL Low 1.00-4.00 [facility] Comment on above: Order Comment: Speci men Type: BLOOD SPECIMENOrdering Facility: [facility] Address: [address] [place] [address] Performed By: #### 5 7021-8 ####[facility] LABORATORYCLIA [id number] [address] Lymphocytes/100 WBC (Bld) 7.4 % Normal [facility] Comment on above: Order Comment: Speci men Type: BLOOD SPECIMENOrdering Facility: [facility] Address: [address] [place] [address] Performed By: #### 5 7021-8 ####[facility] LABORATORYCLIA [id number] [place] [address] [place] MCH (RBC) [Entitic mass] 38.7 pg High 26.0-34.0 [facility] Comment on above: Order Comment: Speci men Type: BLOOD SPECIMENOrdering Facility: [facility] Address: [address] [place] [address] Performed By: #### 5 7021-8 ####MCLA[facility] LABORATORYCLIA [id number] [place] [address] [place] [facility] (RBC) [Mass/Vol] 37.5 g/dL High 30.5-36.0 [facility] Comment on above: Order Comment: Speci men Type: BLOOD SPECIMENOrdering Facility: [facility] Address: [address] [place], [place] [address] Performed By: #### 5 7021-8 ####MCLAIN LABORATORYCLIA [id number] [place] [address] [place] MCV (RBC) [Entitic vol] 103.2 fL High 80.0-100.0 [facility] Comment on above: Order Comment: Speci men Type: BLOOD SPECIMENOrdering Facility: [facility] Address: [address] [place] [address] Performed By: #### 5 7021-8 ####MCLAIN LABORATORYCLIA [id number] [address] [place] Monocytes (Bld) [#/Vol] 0.51 10*3/uL Normal <0.87 [facility] Comment on above: Order Comment: Speci men Type: BLOOD SPECIMENOrdering Facility: [facility] Address: [address] [place] [address] Performed By: #### 5 7021-8 ####MCLAIN LABORATORYCLIA [id number] [address] Monocytes/100 WBC (Bld) 6.5 % Normal [facility] Comment on above: Order Comment: Speci men Type: BLOOD SPECIMENOrdering Facility: [facility] Address: [address] [place] [address] Performed By: #### 5 7021-8 ####MCLAIN LABORATORYCLIA [id number] [place] [address] [place] Neutrophils (Bld) [#/Vol] 6.72 10*3/uL Normal 1.45-7.50 [facility] Comment on above: Order Comment: Speci men Type: BLOOD SPECIMENOrdering Facility: [facility] Address: [address] [place] [address] Performed By: #### 5 7021-8 ####MCLAIN LABORATORYCLIA [id number] [address] Neutrophils/100 WBC (Bld) 85.2 % Normal [facility] Comment on above: Order Comment: Speci men Type: BLOOD SPECIMENOrdering Facility: [facility] Address: [address] [place] [address] Performed By: #### 5 7021-8 ####MCLAIN LABORATORYCLIA [id number] [place] [address] [place] Nucleated RBC (Bld) [#/Vol] 10*3/uL Normal <0.01 [facility] Comment on above: Order Comment: Speci men Type: BLOOD SPECIMENOrdering Facility: [facility] Address: [address] [place] [address] Performed By: #### 5 7021-8 ####MCLAIN LABORATORYCLIA [id number] [address] [place] Nucleated RBC/100 WBC (Bld) [Ratio] 0.0 /100 WBC Normal [facility] Comment on above: Order Comment: Speci men Type: BLOOD SPECIMENOrdering Facility: [facility] Address: [address] [place] [address] Performed By: #### 5 7021-8 ####MCLAIN LABORATORYCLIA [id number] [address] [place] Platelet mean volume (Bld) [Entitic vol] 10.2 fL Normal 9.0-12.7 [facility] Comment on above: Order Comment: Speci men Type: BLOOD SPECIMENOrdering Facility: [facility] Address: [address] [place] [address] Performed By: #### 5 7021-8 ####MCLAIN LABORATORYCLIA [id number] [place] [address] [place] Platelets (Bld) [#/Vol] 134 10*3/uL Low 150-400 [facility] Comment on above: Order Comment: Speci men Type: BLOOD SPECIMENOrdering Facility: [facility] Address: [address] [place] [address] Performed By: #### 5 7021-8 ####MCLAIN LABORATORYCLIA [id number] [place] [address] [place] RBC (Bld) [#/Vol] 2.79 10*6/uL Low 3.90-5.[address] [facility] Comment on above: Order Comment: Speci men Type: BLOOD SPECIMENOrdering Facility: [facility] Address: [address] [place] [address] Performed By: #### 5 7021-8 ####[facility] LABORATORYCLIA [id number] [address] WBC (Bld) [#/Vol] 7.88 10*3/uL Normal 3.70-11.[address] [facility] Comment on above: Order Comment: Speci men Type: BLOOD SPECIMENOrdering Facility: [facility] Address: [address] [place] [address] Performed By: #### 5 7021-8 ####[facility]CH[facility] LABORATORYCLIA [id number] [address] CRP SerPl-mCncon 05-28-2025 CRP [Mass/Vol] 9.5 mg/dL High <0.9 [facility] Comment on above: Order Comment: Speci men Type: BLOOD SPECIMENOrdering Facility: [facility] Address: [address] [place] [address] Performed By: #### 1 988-5, 77083-6, [facility], 2276-4, 2951-2 ####[facility]CH[facility] LABORATORYCLIA [id number] [address] Comprehensive metabolic 2000 panelon 05-28-2025 Albumin [Mass/Vol] 3.1 g/dL Low 3.9-4.9 [facility] Comment on above: Order Comment: Speci men Type: BLOOD SPECIMENOrdering Facility: [facility] Address: [address] [place] [address] Performed By: #### 2 4323-8 ####LY[facility]CH[facility] LABORATORYCLIA [id number] [address] [place] ALP [Catalytic activity/Vol] 285 U/L High 34-123 [facility] Comment on above: Order Comment: Speci men Type: BLOOD SPECIMENOrdering Facility: [facility] Address: [address] [place] [address] Performed By: #### 2 4323-8 ####MCLAIN LABORATORYCLIA [id number] [address] [place] ALT [Catalytic activity/Vol] 18 U/L Normal 7-38 [facility] Comment on above: Order Comment: Speci men Type: BLOOD SPECIMENOrdering Facility: [facility] Address: [address] [place] [address] Performed By: #### 2 4323-8 ####MCLAIN LABORATORYCLIA [id number] [address] Anion gap [Moles/Vol] 14 mmol/L Normal 8-15 [facility] Comment on above: Order Comment: Speci men Type: BLOOD SPECIMENOrdering Facility: [facility] Address: [address] [place] [address] Performed By: #### 2 4323-8 ####MCLAIN LABORATORYCLIA [id number] [address] AST [Catalytic activity/Vol] Normal [facility] Comment on above: Order Comment: Speci men Type: BLOOD SPECIMENOrdering Facility: [facility] Address: [address] [place] [address] Result Comment: Unab le to assay due to interference from hemolysis. Suggest reorder as clinically indicated. Performed By: #### 2 4323-8 ####MCLAIN LABORATORYCLIA [id number] [address] [place] Bilirubin [Mass/Vol] 6.9 mg/dL High 0.2-1.3 [facility] Comment on above: Order Comment: Speci men Type: BLOOD SPECIMENOrdering Facility: [facility] Address: [address] [place] [address] Performed By: #### 2 4323-8 ####MCLAIN LABORATORYCLIA [id number] [place] [address] [place] Calcium [Mass/Vol] 8.7 mg/dL Normal 8.5-10.2 [facility] Comment on above: Order Comment: Speci men Type: BLOOD SPECIMENOrdering Facility: [facility] Address: [address] [place] [address] Performed By: #### 2 4323-8 ####MCLAIN LABORATORYCLIA [id number] [place] [address] [place] Chloride [Moles/Vol] 82 mmol/L Low 98-107 [facility] Comment on above: Order Comment: Speci men Type: BLOOD SPECIMENOrdering Facility: [facility] Address: [address] [place] [address] Performed By: #### 2 4323-8 ####MCLAIN LABORATORYCLIA [id number] [place] [address] [place] CO2 [Moles/Vol] 27 mmol/L Normal 22-30 [facility] Comment on above: Order Comment: Speci men Type: BLOOD SPECIMENOrdering Facility: [facility] Address: [address] [place] [address] Performed By: #### 2 4323-8 ####MCLAIN LABORATORYCLIA [id number] [place] [address] [place] Creatinine [Mass/Vol] 0.64 mg/dL Normal 0.58-0.96 [facility] Comment on above: Order Comment: Speci men Type: BLOOD SPECIMENOrdering Facility: [facility] Address: [address] [place] [address] Performed By: #### 2 4323-8 ####MCLAIN LABORATORYCLIA [id number] [place] [address] [place] eGFRcr SerPlBld CKD-EPI 2020 93 mL/min/1.73m??? Normal >=60 [facility] Comment on above: Order Comment: Speci men Type: BLOOD SPECIMENOrdering Facility: [facility] Address: [address] [place] [address] Result Comment: Kaylyn mated Glomerular Filtration Rate [...] Performed By: #### 2 4323-8 ####MCLAIN LABORATORYCLIA [id number] [place] [address] [place] Glucose [Mass/Vol] 105 mg/dL High 74-99 [facility] Comment on above: Order Comment: Steve lemons Type: BLOOD SPECIMENOrdering Facility: [facility] Address: [address] [place] [address] Result Comment: The [place] [employer] (ADA) provides guidance for cutoff [...] Standards of Medical Care in Diabetes 2016, [place] [employer]. Diabetes Care. 2016.39(Suppl 1). Performed By: #### 2 4323-8 ####MCLAIN LABORATORYCLIA [id number] [place] [address] [place] Potassium [Moles/Vol] 3.2 mmol/L Low 3.7-5.1 [facility] Comment on above: Order Comment: Setve lemons Type: BLOOD SPECIMENOrdering Facility: [facility] Address: [address] [place] [address] Performed By: #### 2 4323-8 ####MCLAIN LABORATORYCLIA [id number] [place] [id number] [place] Protein [Mass/Vol] 6.3 g/dL Normal 6.3-8.0 [facility] Comment on above: Order Comment: Steve lemons Type: BLOOD SPECIMENOrdering Facility: [facility] Address: [address] [place] [address] Performed By: #### 2 4323-8 ####MCLAIN LABORATORYCLIA [id number] [address] Sodium [Moles/Vol] 123 mmol/L Low 136-144 [facility] Comment on above: Order Comment: Speci men Type: BLOOD SPECIMENOrdering Facility: [facility] Address: [address] [place] [address] Performed By: #### 2 4323-8 ####MCLAIN LABORATORYCLIA [id number] [place] [id number] [place] [facility] Urea nitrogen [Mass/Vol] 9 mg/dL Normal 7-21 [facility] Comment on above: Order Comment: Speci men Type: BLOOD SPECIMENOrdering Facility: [facility] Address: [address] [place] [address] Performed By: #### 2 4323-8 ####[facility] LABORATORYCLIA [id number] [address] ED NOTEon 05-28-2025 ED NOTE HNO ID: [id number] Author: NAUN PARKER, KAREN Service: Nursing Author Type: Registered Nurse Type: ED Notes Filed: 05/28/2025 17:49 Note Text: Second call to 2 south. [facility] ED NOTE HNO ID: [id number] Author: NAUN PARKER, KAREN Service: Nursing Author Type: Registered Nurse Type: ED Notes Filed: 05/28/2025 17:32 Note Text: Heads up to 2 South at 1722 [facility] ED PROV NOTEon 05-28-2025 ED PROV NOTE [facility] ESR Westergren method (Bld) [Velocity]on 05-28-2025 ESR (Bld) [Velocity] 37 mm/h High 0-20 [facility] Comment on above: Order Comment: Speci men Type: BLOOD SPECIMENOrdering Facility: [facility] Address: [address] [place] [address] Performed By: #### 4 537-7 ####[facility] LABCLIA [id number] [address] Ferritin SerPl-mCncon 2024 Ferritin [Mass/Vol] 612.8 ng/mL High 14.7-205.1 [facility] Comment on above: Order Comment: Speci men Type: BLOOD SPECIMENOrdering Facility: [facility] Address: [address] [place] [address] Performed By: #### 1 988-5, 08941-6, TSHRF, 2276-4, 2951-2 ####LYNCH[facility] LABORATORYCLIA [id number] [place] [address] [place] HAV IgM Ser Qlon 05-28-2025 HAV IgM Ql (S) Negative Normal Negative [facility] Comment on above: Order Comment: Speci men Type: BLOOD SPECIMENOrdering Facility: [facility] Address: [address] [place] [address] Result Comment: No e vidence of recent infection with Hepatitis A virus. Performed By: #### 3 1204-1, 13442-2, 5194-3 ####[facility] LABCLIA [id number] [address] [place] HBV core IgM Ser Qlon 2024 HBV core IgM Ql (S) Negative Normal Negative [facility] Comment on above: Order Comment: Kathii cristo Type: BLOOD SPECIMENOrdering Facility: [facility] Address: [address] [place] [address] Result Comment: No e vidence of recent infection with Hepatitis B virus. Should recent infection be suspected, repeat testing may be considered 3-4 weeks after this draw. Performed By: #### 3 1204-1, 13413-8, 5194-3 ####[facility] LABCLIA [id number] [place] [address] [place] HBV surface Ag Ser Qlon 05-06 HBV surface Ag Ql (S) Negative Normal Negative [facility] Comment on above: Order Comment: Speci cristo Type: BLOOD SPECIMENOrdering Facility: [facility] Address: [address] [place] [address] Performed By: #### 3 1204-1, 19994-3, 5195-3 ####[facility] LABCLIA [id number] [address] [place] HCV Ab Ser Qlon 05-28-2025 HCV Ab Ql (S) Negative Normal Negative [facility] Comment on above: Order Comment: Speci men Type: BLOOD SPECIMENOrdering Facility: [facility] Address: [address] [place] [address] Result Comment: The result suggests no evidence of infection with Hepatitis C virus. Should recent infection be suspected, repeat testing may be considered 4-6 weeks after this draw. Performed By: #### 1 6128-1 ####[facility] LABCLIA [id number] [address] [place] HISTORY PHYSICALon HISTORY PHYSICAL Normal [facility] Hepatic function 2000 panelo n 05-28-2025 Albumin [Mass/Vol] 2.8 g/dL Low 3.9-4.9 [facility] Comment on above: Order Comment: Speci men Type: BLOOD SPECIMENOrdering Facility: [facility] Address: [address] [place] [address] Performed By: #### 2 4325-3 ####MCLAIN LABORATORYCLIA [id number] [place] [address] [place] ALP [Catalytic activity/Vol] 246 U/L High 34-123 [facility] Comment on above: Order Comment: Speci men Type: BLOOD SPECIMENOrdering Facility: [facility] Address: [address] [place] [address] Performed By: #### 2 4325-3 ####MCLAIN LABORATORYCLIA [id number] [address] [place] ALT [Catalytic activity/Vol] 15 U/L Normal 7-38 [facility] Comment on above: Order Comment: Speci men Type: BLOOD SPECIMENOrdering Facility: [facility] Address: [address] [place] [address] Performed By: #### 2 4325-3 ####MCLA[facility] LABORATORYCLIA [id number] [address] AST [Catalytic activity/Vol] 53 U/L High 13-35 [facility] Comment on above: Order Comment: Speci men Type: BLOOD SPECIMENOrdering Facility: [facility] Address: [address] [place] [address] Performed By: #### 2 4325-3 ####MCLAIN LABORATORYCLIA [id number] [place] [address] [place] Bilirubin [Mass/Vol] 6.3 mg/dL High 0.2-1.3 [facility] Comment on above: Order Comment: Speci men Type: BLOOD SPECIMENOrdering Facility: [facility] Address: [address] [place] [address] Performed By: #### 2 4325-3 ####M[facility] LABORATORYCLIA [id number] [address] [place] Bilirubin.conjugated [Mass/Vol] 3.9 mg/dL High <0.3 [facility] Comment on above: Order Comment: Speci men Type: BLOOD SPECIMENOrdering Facility: [facility] Address: [address] [place] [address] Performed By: #### 2 4325-3 ####MCLAIN LABORATORYCLIA [id number] [address] Protein [Mass/Vol] 5.6 g/dL Low 6.3-8.0 [facility] Comment on above: Order Comment: Speci men Type: BLOOD SPECIMENOrdering Facility: [facility] Address: [address] [place] [address] Performed By: #### 2 4325-3 ####MCLAIN LABORATORYCLIA [id number] [place] [address] [facility] [place] Iron and Iron binding capaci ty panelon 05-28-2025 Iron [Mass/Vol] 40 ug/dL Low 41-186 [facility] Comment on above: Order Comment: Speci men Type: BLOOD SPECIMENOrdering Facility: [facility] Address: [address] [place] [address] Performed By: #### 1 988-5, 82974-8, [facility], 6-4, 2951-2 ####[facility] LABORATORYCLIA [id number] [place] [address] [place] Iron binding capacity [Mass/Vol] 128 ug/dL Low 232-386 [facility] Comment on above: Order Comment: Speci men Type: BLOOD SPECIMENOrdering Facility: [facility] Address: [address] [place] [address] Performed By: #### 1 988-5, 23463-3, [facility], 6-4, 2951-2 ####[facility] LABORATORYCLIA [id number] [place] [address] [place] Iron/TIBC [Molar ratio] 31.3 % Normal 15.0-57.0 [facility] Comment on above: Order Comment: Speci men Type: BLOOD SPECIMENOrdering Facility: [facility] Address: [address] [place] [address] Performed By: #### 1 988-5, 29621-6, [facility], 6-4, 2951-2 ####[facility] LABORATORYCLIA [id number] [place] [id number] [place] Lactate (Bld) [Moles/Vol]on 05-28-2025 Lactate [Moles/Vol] 2.4 mmol/L High 0.5-2.[address] [facility] Comment on above: Order Comment: Speci men Type: BLOOD SPECIMENOrdering Facility: [facility] Address: [address] [place] [address] Performed By: #### 3 2693-4 ####[facility] LABORATORYCLIA [id number] [place] [address] [place] Osmolality SerPlon Osmolality [Osmolality] 259 mosm/kg Low 275-300 [facility] Comment on above: Order Comment: Speci men Type: BLOOD SPECIMENOrdering Facility: [facility] Address: [address] [place] [address] Performed By: #### 2 692-2 ####[facility] LABCLIA [id number] [place] [address] [place] PT panel Coag (PPP)on 2024 INR Coag (PPP) [Relative time] 1.3 {INR} Normal 0.9-1.3 [facility] Comment on above: Order Comment: Steve lemons Type: BLOOD SPECIMENOrdering Facility: [facility] Address: [address] [place], [place] [id number] Result Comment: Arlene min K Antagonist (VKA) Therapeutic Range: INR 2 to 3 (Target INR of 2.5)Note: For patients treated with VKA drugs, such as warfarin, the [place] [employer] 2012 Guideline recommends [...] al. Chest 2012, 141:7S-47SNishimura RA, et al. [facility] 2017, 70: 252-289 Performed By: #### 3 4528-0 ####[facility] LABORATORYCLIA [id number] [place] [id number] [place] PT Coag (PPP) [Time] 13.4 s High 9.7-13.0 [facility] Comment on above: Order Comment: Steve lemons Type: BLOOD SPECIMENOrdering Facility: [facility] Address: [address] [place] [address] Performed By: #### 3 4528-0 ####[facility] LABORATORYCLIA [id number] [place] [id number] [place] SEPSIS LACTATE W/ REFLEX (IN ITIAL)on 05-28-2025 Lactate [Moles/Vol] 2.2 mmol/L High 0.5-2.[address] [facility] Comment on above: Order Comment: Steve lemons Type: BLOOD SPECIMENOrdering Facility: [facility] Address: [address] [place] [address] Performed By: #### S LACTR ####[facility] LABORATORYCLIA [id number] [place] [id number] [place] SEPSIS LACTATE W/ REFLEX (SE COND)on 05-28-2025 Lactate [Moles/Vol] 1.5 mmol/L Normal 0.5-2.[address] [facility] Comment on above: Order Comment: Speci men Type: BLOOD SPECIMENOrdering Facility: [facility] Address: [address] [place] [address] Performed By: #### S LACT2 ####[facility] LABORATORYCLIA [id number] [place] [id number] [place] Sodium SerPl-sCncon 05-28-20 25 Sodium [Moles/Vol] 124 mmol/L Low 136-144 [facility] Comment on above: Order Comment: Speci men Type: BLOOD SPECIMENOrdering Facility: [facility] Address: [address] [place] [address] Performed By: #### 1 988-5, 81542-1, TSHRF, 2276-4, 2951-2 ####[facility] LABORATORYCLIA [id number] [place] [id number] [facility] [place] TSH W/REFLEX FT4on 5 TSH Qn 1.160 m[IU]/L Normal 0.270-4.20 0 [facility] Comment on above: Order Comment: Speci men Type: BLOOD SPECIMENOrdering Facility: [facility] Address: [address] [place] [address] Performed By: #### 1 988-5, 24271-7, TSHRF, 2276-4, 2951-2 ####[facility] LABORATORYCLIA [id number] [place] [id number] [place] Bacteria Wnd Culton 05-27-20 25 Bacteria identified Cx Nom (Wound) Abnormal [facility] Comment on above: Performed By: #### 6 462-6 ####[facility] LABCLIA [id number] [address] [place] Bacteria identified Cx Nom (Wound) ORGANISM ID: 1 Many Pseudomonas aeruginosa Refer to specimen collected on 05/27/2025 at 1557 [[id number]] ORGANISM ID: 3 Rare skin mikhail GRAM STAIN: Many Gram negative bacilli Rare Gram positive cocci Rare Polymorphonuclear leukocytes Abnormal [facility] Comment on above: Performed By: #### 6 462-6 ####[facility] LABCLIA [id number] [facility] [place] [id number] [place] CNOVon 05-27-2025 CNOV Normal [facility] CNTHERAPYon 05-27-2025 CNTHERAPY Normal [facility] CNPNon 05-23-2025 [facility] Anion gap in Serum or Plasma Ordered By: Solo Calderón on 05-21-2025 Anion gap [Moles/Vol] 13 mmol/L 5- [facility] BUN/creatinine ratioOrdered By: Solo Calderón on 05-21-2025 Urea nitrogen/Creatinine [Mass ratio] 12.2 mg/mg 10- [facility] Bilirubin, totalOrdered By: Solo Calderón on 05-21-2025 Bilirubin [Mass/Vol] 5.09 mg/dL High 0.00-1.30 [facility] Carbon dioxide, total [Moles /volume] in Central venous bloodOrdered By: Solo Calderón on 05-21-2025 CO2 [Moles/Vol] 28.3 mmol/L 21.0-32.0 [facility] Chloride assayOrdered By: Anirudh Calderón on 05-21-2025 Chloride [Moles/Vol] 83 mmol/L Low 98-108 [facility] Comprehensive Metabolic Prof ilon 05-21-2025 Albumin [Mass/Vol] 3.2 g/dL Low 3.4-4.8 [facility] Comment on above: Performed By: #### L 501.4405, L100.0100, L501.1105 #### [facility] [address] [place], [address] Albumin/Globulin [Mass ratio] 1.1 {ratio} Normal 0.9-2.4 [facility] Comment on above: Performed By: #### L 501.4405, L100.0100, L501.1105 #### [facility] [address] [place], [address] ALK PHOS 284 U/L High 35-104 [facility] Comment on above: Performed By: #### L 501.4405, L100.0100, L501.1105 #### [facility] [address] [place], [address] ALT [Catalytic activity/Vol] 18 U/L Normal <=34 [facility] Comment on above: Performed By: #### L 501.4405, L100.0100, L501.1105 #### [facility] [address] [place], [address] AST [Catalytic activity/Vol] 62 U/L High <=31 [facility] Comment on above: Performed By: #### L 501.4405, L100.0100, L501.1105 #### [facility] [address] [place], [address] Bilirubin [Mass/Vol] 5.09 mg/dL High 0.00-1.30 [facility] Comment on above: Performed By: #### L 501.4405, L100.0100, L501.1105 #### [facility] [address] [place], [address] BUN/CRE 12.2 RATIO Normal 10-20 [facility] Comment on above: Performed By: #### L 501.4405, L100.0100, L501.1105 #### [facility] [address] [place], [address] Calcium [Mass/Vol] 9.4 mg/dL Normal 7.6-11.0 [facility] Comment on above: Performed By: #### L 501.4405, L100.0100, L501.1105 #### [facility] [address] [place], [address] Chloride [Moles/Vol] 83 mmol/L Low 98-108 [facility] Comment on above: Performed By: #### L 501.4405, L100.0100, L501.1105 #### [facility] [address] [place], [address] CO2 [Moles/Vol] 28.3 mmol/L Normal 21.0-32.0 [facility] Comment on above: Performed By: #### L 501.4405, L100.0100, L501.1105 #### [facility] [address] [place], [address] Creatinine [Mass/Vol] 0.72 mg/dL Normal 0.70-1.20 [facility] Comment on above: Result Comment: Icte norris present, Results may be affected. Performed By: #### L 501.4405, L100.0100, L501.1105 #### [facility] [address] [place], [address] GAP 13 Normal 5-15 [facility] Comment on above: Performed By: #### L 501.4405, L100.0100, L501.1105 #### [facility] [address] [place], [address] GFR/1.73 sq M.predicted among non-blacks MDRD (S/P/Bld) [Vol rate/Area] 88 mL/min/{1.73_m2} Normal >60 [facility] Comment on above: Result Comment: mL/m in/1.73m2 CKD-EPI Creatinine Equation (2020) Performed By: #### L 501.4405, L100.0100, L501.1105 #### [facility] [address] [place], [address] Globulin (S) [Mass/Vol] 2.9 g/dL Normal 2.2-4.2 [facility] Comment on above: Performed By: #### L 501.4405, L100.0100, L501.1105 #### [facility] [address] [place], [address] Glucose [Mass/Vol] 117 mg/dL High 70-99 [facility] Comment on above: Performed By: #### L 501.4405, L100.0100, L501.1105 #### [facility] [address] [place], [address] Potassium [Moles/Vol] 3.7 mmol/L Normal 3.3-5.1 [facility] Comment on above: Performed By: #### L 501.4405, L100.0100, L501.1105 #### [facility] [address] [place], [address] Sodium [Moles/Vol] 124 mmol/L Low 133-145 [facility] Comment on above: Performed By: #### L 501.4405, L100.0100, L501.1105 #### [facility] [address] [place], [address] T PROT 6.1 g/dL Normal 5.9-8.4 [facility] Comment on above: Performed By: #### L 501.4405, L100.0100, L501.1105 #### [facility] [address] [place], [address] Urea nitrogen [Mass/Vol] 9 mg/dL Normal 4-19 [facility] Comment on above: Performed By: #### L 501.4405, L100.0100, L501.1105 #### [facility] [address] [place], [address] Glomerular filtration rate ( GFR) estimation/1.73 sq m using serum, plasma, or whole bOrdered By: Solo Calderón on 05-21-2025 GFR/1.73 sq M.predicted among non-blacks MDRD (S/P/Bld) [Vol rate/Area] 88 mL/min/{1.73_m2} >60 [facility] Comment on above: mL/min/1.73m2 CKD-EP I Creatinine Equation (2020) Internal Medicine Office Vis iton 05-21-2025 Internal Medicine Office Visit [facility] [address] [place] [address] [place] [address] OFFICE VISIT Date of Service: 05/21/25 MR#: [id number] Acct: [id number] Name: MARY ALICE GA Rep #: [id number] : 1950 Provider: JIMMY Mohamud Age/Sex: 74/F Location: [facility] Status: Signed with Addenda ADDENDUM by Cleopatra Steen on 05/21/25 at 1640 Office Procedure Documentation entered by Cleopatra Steen 05/21/25 16:40: Injections Is this a patient provided medication?: No Office Meds Prolia 60 mg/mL subcutaneous syringe Performing Provider: Khanh Rodriguez MD Performing Location: [facility] Administered by: Cleopatra Steen on 05/21/25 16:38 Dose Route Admin Location Dispensed Lot Number Expiration Date Package NDC NDC Goods Layer 60 mg subcut erickson 1 mL [id number] 11/02/27 54202-005-88 [id number] AMGEN Comments: patient tolerated Prolia well, sat [...] Reasons: Lab. Prolia-$0 Chief Complaint: discuss prolia Weblogic Administrator Required: No Accompanied by: Self Is patient [...] culture a (more content not included)... Normal [facility] - Chemistry and C hemistry - challengeOrdered By: Solo Calderón on 05-21-2025 AST [Catalytic activity/Vol] 62 U/L High <32 [facility] Natriuretic peptide.B prohor lynsey N-Terminal [Mass/volume] in Serum or PlasmaOrdered By: Solo Calderón on 05-21-2025 Natriuretic peptide.B prohormone N-Terminal [Mass/Vol] 613 pg/mL <900 [facility] Comment on above: Heart Failure Unlike ly: < 300 pg/mLHeart Failure Likely< 50 Years: > 450 pg/mL50-75 Years: > 900 pg/mL>75 Years: > 1800 pg/mL Potassium measurement (mass/ volume)Ordered By: Solo Calderón on 05-21-2025 Potassium (Unsp spec) [Mass/Vol] 3.7 mmol/L 3.3-5.1 [facility] Pro- Brain NATRIURETIC PEPTI Caleb 05-21-2025 Natriuretic peptide B (Bld) [Mass/Vol] 613 pg/mL Normal <=900 [facility] Comment on above: Result Comment: Hear t Failure Unlikely: < 300 pg/mL Heart Failure Likely < 50 Years: > 450 pg/mL 50-75 Years: > 900 pg/mL >75 Years: > 1800 pg/mL Performed By: #### L 501.4405, L100.0100, L501.1105 #### [facility] [address] [place], [address] Serum creatinine measurement (mass/volume)Ordered By: Solo Calderón on 05-21-2025 Creatinine [Mass/Vol] 0.72 mg/dL 0.70-1.20 [facility] Comment on above: Icterus present, Res ults may be affected. Serum globulin measurementOr dered By: Solo Calderón on 05-21-2025 Globulin (S) [Mass/Vol] 2.9 g/dL 2.2-4.2 [facility] Serum glucose measurement (m ass/volume)Ordered By: Solo Calderón on 05-21-2025 Glucose [Mass/Vol] 117 mg/dL High 70-99 [facility] Serum or plasma alanine gibbs otransferase (ALT) measurementOrdered By: Solo Calderón on 05-21-2025 ALT [Catalytic activity/Vol] 18 U/L <35 [facility] Serum or plasma albumin seth urement (mass/volume)Ordered By: Solo Calderón on 05-21-2025 Albumin [Mass/Vol] 3.2 g/dL Low 3.4-4.8 [facility] Serum or plasma albumin/glob ulin mass ratioOrdered By: Solo Calderón on 05-21-2025 Albumin/Globulin [Mass ratio] 1.1 {ratio} 0.9-2.4 [facility] Serum or plasma alkaline miguel sphatase measurementOrdered By: Solo Calderón on 05-21-2025 ALP [Catalytic activity/Vol] 284 U/L High 35-104 [facility] Serum or plasma calcium seth urement (mass/volume)Ordered By: Solo Calderón on 05-21-2025 Calcium [Mass/Vol] 9.4 mg/dL 7.6-11.0 [facility] Serum or plasma urea nitroge n measurement (mass/volume)Ordered By: Solo Calderón on 05-21-2025 Urea nitrogen [Mass/Vol] 9 mg/dL 4-19 [facility] Sodium levelOrdered By: Atul Calderón on 05-21-2025 Sodium [Moles/Vol] 124 mmol/L Low 133-145 [facility] TSH DL <= 0.005 mIU/L QnOrde red By: Solo Calderón on 05-21-2025 TSH Qn 1.730 uIU/mL 0.300-4.20 0 [facility] Thyroid Stim Hormone (TSH)on 05-21-2025 TSH 1.730 uIU/mL Normal 0.300-4.20 0 [facility] Comment on above: Performed By: #### L 501.4405, L100.0100, L501.1105 #### [facility] [address] [place], [address] Total proteinOrdered By: David yeealexandrea Calderón on 05-21-2025 Protein [Mass/Vol] 6.1 g/dL 5.9-8.4 [facility] Bacteria Wnd Culton 05-20-20 25 Bacteria identified Cx Nom (Wound) Abnormal [facility] Comment on above: Performed By: #### 6 462-6 ####[facility] [id number] [address] [place] CNTHERAPYon 05-20-2025 CNTHERAPY Normal [facility] Magnetic resonance imaging r eportOrdered By: Naun Jenkins on 05-14-2025 Study report [facility] [address] [place] [address] Spine Lumbar (Routine) MR#: [id number] Acct: [id number] Name: MARY ALICE GA Rep #: [id number] : 1950 F 74 From: Anup Jenkins MD PCP: Dr. Khanh Rodriguez MD Status: R EG CLI Study:Spine Lumbar (Routine) Date of Exam: 05/13/25 Exam# [id number] Ordering Dr: Deejay Lopez PROCEDURE: SPINE LUMBAR [...] Severe facet arthropathyand ligamentum flavum hypertrophy with owej-xk-jdgnooox central stenosis. Mild bilateral foraminal encroachment. L5-S1: Degenerative disc disease and diffuse bulge with bilateral foraminal encroachment rglxq-dswmfoo-gkms-left. Severe facet arthropathy rzbqe-fhgoero-qcwa-left. Sacrum: Visible SI joints and sacrum appear [...] the exiting right L5 nerve. Reading Location: [facility] CC: JIMMY Dawson; Dr. Khanh Rodriguez MD ~ Gis Web Developer: Signed [facility] CNTHERAPYon 05-13-2025 CNTHERAPY Normal [facility] Spine Lumbar (Routine)on Spine Lumbar (Routine) [facility] [address] [place] [address] Spine Lumbar (Routine) MR#: [id number] Acct: [id number] Name: MARY ALICE GA Rep #: [id number] : 1950 F 74 From: Naun cartagena MD PCP: Dr. Khanh Rodriguez MD Status: REG CLI Study: Spine Lumbar (Routine) Date of Exam: 05/13/25 Exam# [id number] Ordering Dr: Tracy Lopez PROCEDURE: SPINE LUMBAR [...] facet arthropathy and ligamentum flavum hypertrophy with zwbk-ki-lfnbcgna central stenosis. Mild bilateral foraminal encroachment. L5-S1: Degenerative disc disease and diffuse bulge with bilateral foraminal encroachment xbdyd-xvmbvti-ocib-left. Severe facet arthropathy uqftn-qdxzbtd-jnhz-left. Sacrum: Visible SI joints and sacrum appear [...] the exiting right L5 nerve. Reading Location: [id number] CC: JIMMY Dawson; Dr. Khanh Rodriguez MD Gis Web Developer: Signed Normal [facility] L/S Spine Min 4 Viewson 09 L/S Spine Min 4 Views [facility] [address] [place] [id number] L/S Spine Min 4 Views MR#: [id number] Acct: [id number] Name: MARY ALICE GA Rep #: [id number] : 1950 F 74 From: Reggie Lopez MD PCP: Dr. Khanh Rodriguez MD Status: DEP AMB Study: L/S Spine Min 4 Views Date of Exam: 05/08/25 Exam# [id number] Ordering Dr: Tracy Lopez PROCEDURE: L/S SPINE [...] similar to the previous study. Reading Location: [facility] CC: JIMMY Dawson; Dr. Khanh Rodriguez MD Gis Web Developer: Signed Normal [facility] Orthopedic Visit Reporton Orthopedic Visit Report [facility] [address] [place] [address] OFFICE VISIT Date of Service: 05/08/25 MR#: [id number] Acct: [id number] Name: MARY ALICE GA Rep #: [id number] : 1950 Provider: JIMMY Dawson Age/Sex: 74/F Location: [facility] Status: Signed Intake Vital Signs 04/25/25 13:01 [...] mg PO DAILY BP #90 tabs 5 05/08/25 Rx tramadol 50 mg tablet [...] that she was previously seen by a security services specialist in [place] Dr. Quoc SCHMITT in [place] as she goes there during the coreas. She states that she did have a kyphoplasty with him in July of 2024 for a compression fracture from T12-L2. Gaylord a lot better after the kyphoplasty. She [...] is being treated for the wound at [facility] in [place] and it is healing but has been [...] long di (more content not included)... Normal [facility] CNTHERAPYon 05-06-2025 CNTHERAPY [facility] Internal Medicine Office Vis iton 04-29-2025 Internal Medicine Office Visit [facility] [address] [place] [address] OFFICE VISIT Date of Service: 04/29/25 MR#: [id number] Acct: [id number] Name: MARY ALICE GA Rep #: [id number] : 1950 Provider: SAMUEL paulson Age/Sex: 74/F Location: [facility] Status: Signed Intake Vital Signs 04/25/25 13:01 [...] for approximately (more content not included)... Normal [facility] 04-28-2025 CNTHERAPY [facility] 04-22-2025 CNTHERAPY [facility] 04-15-2025 CNTHERAPY [facility] 04-08-2025 CNOV [facility] 04-08-2025 CNTHERAPY [facility] [id number] 04-01-2025 [id number] [facility] 04-01-2025 CNTHERAPY [facility] 03-25-2025 CNTHERAPY [facility] 03-19-2025 CNTHERAPY [facility] 03-11-2025 CNTHERAPY [facility] 03-03-2025 [facility]THERAPY [facility] Absolute lymphocyte countOrd ered By: Nayan Blackmon on 02-24-2025 Lymphocytes Auto (Unsp spec) [#/Vol] 0.74 10*3/uL Low 0.83-4.51 [facility] Absolute neutrophil countOrd ered By: Nayan Blackmon on 02-24-2025 Neutrophils (Bld) [#/Vol] 2.1 10*3/uL 2.0-7.7 [facility] Alanine Aminotransferas (SGP T)on 02-24-2025 ALT [Catalytic activity/Vol] 30 U/L Normal <=34 [facility] Comment on above: Performed By: #### L 501.4405, L100.0100, L501.1105 #### [facility] [address] [place], [address] Automated lymphocyte count a s percentage of total leukocytesOrdered By: Nayan Blackmon on 02-24-2025 Lymphocytes/100 WBC Auto (Unsp spec) 21.1 % 19-41 [facility] Basophil percentageOrdered B y: Nayan Jammie on 02-24-2025 Basophils/100 WBC (Bld) 1.1 % High 0-1 [facility] Blood manual differential co mment interpretation (narrative result)Ordered By: Nayan Blackmon on 02-24-2025 Manual differential comment Emir (Bld) [Interp] SCANNED [facility] CBC W/Diff, Automatedon 02-03 PLT EST MOD DEC Normal ADEQ [facility] Comment on above: Performed By: #### L 501.4405, L100.0100, L501.1105 #### [facility] [address] [place], [address] SMEAR COMMENT SCANNED Normal [facility] Comment on above: Performed By: #### L 501.4405, L100.0100, L501.1105 #### [facility] [address] [place], [address] CNTHERAPYon 02-24-2025 CNTHERAPY Normal [facility] Eosinophil percentageOrdered By: Nayan Blackmon on 02-24-2025 Eosinophils/100 WBC (Bld) 7.1 % High 0-5 [facility] Erythrocyte distribution wid th ratioOrdered By: Nayan Blackmon on 02-24-2025 Erythrocyte distribution width (RBC) [Ratio] 13.6 % 11.6-14.6 [facility] Erythrocyte distribution wid th standard deviationOrdered By: Nayan Blackmon on 02-24-2025 Erythrocyte distribution width (RBC) [Ratio] 51.1 fl High 35.1-43.9 [facility] Glomerular filtration rate ( GFR) estimation/1.73 sq m using serum, plasma, or whole bOrdered By: Nayan Blackmon on 02-24-2025 GFR/1.73 sq M.predicted among non-blacks MDRD (S/P/Bld) [Vol rate/Area] 99 mL/min/{1.73_m2} >60 [facility] Comment on above: mL/min/1.73m2 CKD-EP I Creatinine Equation (2020) Hematocrit Auto (Bld) [Volum e fraction]Ordered By: Nayan Blackmon on 02-24-2025 Hematocrit (Bld) [Volume fraction] 29.9 % Low 37-47 [facility] Hemoglobin measurementOrdere d By: Nayan Blackmon on 02-24-2025 Hemoglobin (Bld) [Mass/Vol] 10.8 g/dL Low 12.0-15.0 [facility] Immature granulocytes/100 WB C Auto (Bld)Ordered By: Nayan Blackmon on 02-24-2025 Immature granulocytes/100 WBC (Bld) 0.300 % 0.0-0.9 [facility] Comment on above: IG% - Immature Granu locytes (promyelocytes, myelocytes and metamyelocytes) > 1% indicates that a LEFT SHIFT is Present. MCV (mean corpuscular volume ) determinationOrdered By: Nayan Blackmon on 02-24-2025 MCV (RBC) [Entitic vol] 102.0 fL High 81-99 [facility] Mean corpuscular hemoglobin (MCH) determinationOrdered By: Nayan Blackmon on 02-24-2025 MCH (RBC) [Entitic mass] 36.9 pg High 27.0-32.0 [facility] Mean corpuscular hemoglobin concentration (MCHC) determinationOrdered By: Nayan Blackmon on 02-24-2025 MCHC (RBC) [Mass/Vol] 36.1 g/dL High 32-36 [facility] Mean platelet volume determi nationOrdered By: Nayan Blackmon on 02-24-2025 Platelet mean volume (Bld) [Entitic vol] 9.8 fL 6.2-12.0 [facility] Monocyte percentageOrdered B y: Nayan Blackmon on 02-24-2025 Monocytes/100 WBC (Bld) 11.7 % High 0-10 [facility] Neutrophil percentageOrdered By: Nayan Blackmon on 02-24-2025 Neutrophils/100 WBC (Bld) 58.7 % 47-70 [facility] Nucleated red blood cell per centageOrdered By: Nayan Blackmon on 02-24-2025 Nucleated RBC/100 WBC (Bld) [Ratio] 0 % 0-5 [facility] Platelet countOrdered By: Ra rodney Blackmon on 02-24-2025 Platelets (Bld) [#/Vol] 89 10*3/uL Low 150-450 [facility] Platelet estimateOrdered By: Nayan Blackmon on 02-24-2025 Platelets LM Ql (Bld) MOD DEC ADEQ [facility] RBC Auto (Bld) [#/Vol]Ordere d By: Nayan Blackmon on 02-24-2025 RBC (Bld) [#/Vol] 2.93 10*6/uL Low 4.2-5.4 [facility] Serum Creatinine AND GFRon 0 02-24-2025 Creatinine [Mass/Vol] 0.50 mg/dL Low 0.70-1.20 [facility] Comment on above: Performed By: #### L 501.4405, L100.0100, L501.1105 #### [facility] [address] [place], [place], [id number] GFR/1.73 sq M.predicted among non-blacks MDRD (S/P/Bld) [Vol rate/Area] 99 mL/min/{1.73_m2} Normal >60 [facility] Comment on above: Result Comment: mL/m in/1.73m2 CKD-EPI Creatinine Equation (2020) Performed By: #### L 501.4405, L100.0100, L501.1105 #### [facility] [address] [place], [place], [id number] Serum creatinine measurement (mass/volume)Ordered By: Nayan Blackmon on 02-24-2025 Creatinine [Mass/Vol] 0.50 mg/dL Low 0.70-1.20 [facility] Serum or plasma alanine gibbs otransferase (ALT) measurementOrdered By: Nayan Blackmon on 02-24-2025 ALT [Catalytic activity/Vol] 30 U/L <35 [facility] White blood cell (WBC) count Ordered By: Nayan Blackmon on 02-24-2025 WBC (Bld) [#/Vol] 3.5 10*3/uL Low 4.4-11.0 [facility] NURSING PROGon 02-18-2025 NURSING PROG Normal [facility] CNPNon 02-17-2025 CNPN Normal [facility] CNTHERAPYon 02-17-2025 CNTHERAPY Normal [facility] CNOVon 02-11-2025 CNOV Normal [facility] CNTHERAPYon 02-10-2025 CNTHERAPY Normal [facility] CNTHERAPYon 02-03-2025 CNTHERAPY [facility] Bacteria Wnd Culton 01-29-20 25 Bacteria identified Cx Nom (Wound) Abnormal [facility] Comment on above: Performed By: #### 6 462-6 ####[facility] [id number] [address] CNTHERAPYon 01-28-2025 CNTHERAPY Normal [facility] Absolute lymphocyte countOrd ered By: Nabeel Patel on 01-23-2025 Lymphocytes Auto (Unsp spec) [#/Vol] 1.69 10*3/uL 0.83-4.51 [facility] Absolute neutrophil countOrd ered By: Nabeel Patel on 01-23-2025 Neutrophils (Bld) [#/Vol] 2.6 10*3/uL 2.0-7.7 [facility] Anion gap in Serum or Plasma Ordered By: Nabeel Patel on 01-23-2025 Anion gap [Moles/Vol] 16 mmol/L High 5-15 [facility] Automated lymphocyte count a s percentage of total leukocytesOrdered By: Nabeel Patel on 01-23-2025 Lymphocytes/100 WBC Auto (Unsp spec) 33.3 % 19-41 [facility] BUN/creatinine ratioOrdered By: Nabeel Patel on 01-23-2025 Urea nitrogen/Creatinine [Mass ratio] 16.4 mg/mg 10-20 [facility] Basophil percentageOrdered B y: Nabeel Patel on 01-23-2025 Basophils/100 WBC (Bld) 0.8 % 0-1 [facility] Bilirubin, totalOrdered By: Nabeel Patel on 01-23-2025 Bilirubin [Mass/Vol] 2.33 mg/dL High 0.00-1.30 [facility] CBC W/Diff, Automatedon 01-03 Absolute Lymph 1.69 X10 3/uL Normal 0.83-4.51 [facility] Comment on above: Performed By: #### L 500.4050, L100.0100 #### [facility] [address] [place], [address] Absolute Neut 2.6 X10 3/uL Normal 2.0-7.7 [facility] Comment on above: Performed By: #### L 500.4050, L100.0100 #### [facility] [address] [place], [address] Basophils/100 WBC (Bld) 0.8 % Normal 0-1 [facility] Comment on above: Performed By: #### L 500.4050, L100.0100 #### [facility] [address] [place], [address] Eosinophils/100 WBC (Bld) 0.6 % Normal 0-5 [facility] Comment on above: Performed By: #### L 500.4050, L100.0100 #### [facility] [address] [place], [address] Erythrocyte distribution width (RBC) [Ratio] 13.7 % Normal 11.6-14.6 [facility] Comment on above: Performed By: #### L 500.4050, L100.0100 #### [facility] [address] [place], [address] Hematocrit (Bld) [Volume fraction] 35.4 % Low 37-47 [facility] Comment on above: Performed By: #### L 500.4050, L100.0100 #### [facility] [address] [place], [address] Hemoglobin (Bld) [Mass/Vol] 12.8 g/dL Normal 12.0-15.0 [facility] Comment on above: Performed By: #### L 500.4050, L100.0100 #### [facility] [address] [place], [address] IG% 0.400 Normal 0.0-0.9 [facility] Comment on above: Result Comment: IG% - Immature Granulocytes (promyelocytes, myelocytes and metamyelocytes) > 1% indicates that a LEFT SHIFT is Present. Performed By: #### L 500.4050, L100.0100 #### [facility] [address] [place], [address] Lymphocytes/100 WBC (Bld) 33.3 % Normal 19-41 [facility] Comment on above: Performed By: #### L 500.4050, L100.0100 #### [facility] [address] [place], [address] MCH (RBC) [Entitic mass] 36.1 pg High 27.0-32.0 [facility] Comment on above: Performed By: #### L 500.4050, L100.0100 #### [facility] [address] [place], [address] MCHC (RBC) [Mass/Vol] 36.2 g/dL High 32-36 [facility] Comment on above: Performed By: #### L 500.4050, L100.0100 #### [facility] [address] [place], [address] MCV (RBC) [Entitic vol] 99.7 fL High 81-99 [facility] Comment on above: Performed By: #### L 500.4050, L100.0100 #### [facility] [address] [place], [address] Monocytes/100 WBC (Bld) 13.2 % High 0-10 [facility] Comment on above: Performed By: #### L 500.4050, L100.0100 #### [facility] [address] [place], [address] Neutrophils/100 WBC (Bld) 51.7 % Normal 47-70 [facility] Comment on above: Performed By: #### L 500.4050, L100.0100 #### [facility] [address] [place], [address] Nucleated RBC (Bld) [#/Vol] 0 10*3/uL Normal 0-5 [facility] Comment on above: Performed By: #### L 500.4050, L100.0100 #### [facility] [address] [place], [address] Platelet mean volume (Bld) [Entitic vol] 8.4 fL Normal 6.2-12.0 [facility] Comment on above: Performed By: #### L 500.4050, L100.0100 #### [facility] [address] [place], [address] Platelets (Bld) [#/Vol] 122 10*3/uL Low 150-450 [facility] Comment on above: Performed By: #### L 500.4050, L100.0100 #### [facility] [address] [place], [address] RBC (Bld) [#/Vol] 3.55 10*6/uL Low 4.2-5.4 [facility] Comment on above: Performed By: #### L 500.4050, L100.0100 #### [facility] [address] [place], [address] RDW SD 49.6 fl High 35.1-43.9 [facility] [facility] Comment on above: Performed By: #### L 500.4050, L100.0100 #### [facility] [address] [place], [address] WBC (Bld) [#/Vol] 5.1 10*3/uL Normal 4.4-11.0 [facility] Comment on above: Performed By: #### L 500.4050, L100.0100 #### [facility] [address] [place], [address] Carbon dioxide, total [Moles /volume] in Central venous bloodOrdered By: Nabeel Patel on 01-23-2025 CO2 [Moles/Vol] 22.9 mmol/L 21.0-32.0 [facility] Chloride assayOrdered By: Anirudh Patel on 01-23-2025 Chloride [Moles/Vol] 92 mmol/L Low 98-108 [facility] Comprehensive Metabolic Prof ilon 01-23-2025 Albumin [Mass/Vol] 3.8 g/dL Normal 3.4-4.8 [facility] Comment on above: Performed By: #### L 501.4405, L100.0100, L501.1105 #### [facility] [address] [place], [address] Albumin/Globulin [Mass ratio] 1.1 {ratio} Normal 0.9-2.4 [facility] Comment on above: Performed By: #### L 501.4405, L100.0100, L501.1105 #### [facility] [address] [place], [address] ALK PHOS 251 U/L High 35-104 [facility] Comment on above: Performed By: #### L 501.4405, L100.0100, L501.1105 #### [facility] [address] [place], [address] ALT [Catalytic activity/Vol] 27 U/L Normal <=34 [facility] Comment on above: Performed By: #### L 501.4405, L100.0100, L501.1105 #### [facility] [address] [place], [address] AST [Catalytic activity/Vol] 89 U/L High <=31 [facility] Comment on above: Performed By: #### L 501.4405, L100.0100, L501.1105 #### [facility] [address] [place], [address] Bilirubin [Mass/Vol] 2.33 mg/dL High 0.00-1.30 [facility] Comment on above: Performed By: #### L 501.4405, L100.0100, L501.1105 #### [facility] [address] [place], [address] BUN/CRE 16.4 RATIO Normal 10-20 [facility] Comment on above: Performed By: #### L 501.4405, L100.0100, L501.1105 #### [facility] [address] [place], [address] Calcium [Mass/Vol] 9.7 mg/dL Normal 7.6-11.0 [facility] Comment on above: Performed By: #### L 501.4405, L100.0100, L501.1105 #### [facility] [address] [place], [address] Chloride [Moles/Vol] 92 mmol/L Low 98-108 [facility] Comment on above: Performed By: #### L 501.4405, L100.0100, L501.1105 #### [facility] [address] [place], [address] CO2 [Moles/Vol] 22.9 mmol/L Normal 21.0-32.0 [facility] Comment on above: Performed By: #### L 501.4405, L100.0100, L501.1105 #### [facility] [address] [place], [address] Creatinine [Mass/Vol] 0.66 mg/dL Low 0.70-1.20 [facility] Comment on above: Performed By: #### L 501.4405, L100.0100, L501.1105 #### [facility] [address] [place], [address] ECRCL 54.08 ml/min Normal 50-250 [facility] Comment on above: Performed By: #### L 501.4405, L100.0100, L501.1105 #### [facility] [address] [place], [address] GAP 16 High 5-15 [facility] Comment on above: Performed By: #### L 501.4405, L100.0100, L501.1105 #### [facility] [address] [place], [address] GFR/1.73 sq M.predicted among non-blacks MDRD (S/P/Bld) [Vol rate/Area] 92 mL/min/{1.73_m2} Normal >60 [facility] Comment on above: Result Comment: mL/m in/1.73m2 CKD-EPI Creatinine Equation (2020) Performed By: #### L 501.4405, L100.0100, L501.1105 #### [facility] [address] [place], [address] Globulin (S) [Mass/Vol] 3.6 g/dL Normal 2.2-4.2 [facility] Comment on above: Performed By: #### L 501.4405, L100.0100, L501.1105 #### [facility] [address] [place], [address] Glucose [Mass/Vol] 129 mg/dL High 70-99 [facility] Comment on above: Performed By: #### L 501.4405, L100.0100, L501.1105 #### [facility] [address] [place], [address] Potassium [Moles/Vol] 3.6 mmol/L Normal 3.3-5.1 [facility] Comment on above: Performed By: #### L 501.4405, L100.0100, L501.1105 #### [facility] [address] [place], [address] Sodium [Moles/Vol] 130 mmol/L Low 133-145 [facility] Comment on above: Performed By: #### L 501.4405, L100.0100, L501.1105 #### [facility] [address] [place], [address] T PROT 7.4 g/dL Normal 5.9-8.4 [facility] Comment on above: Performed By: #### L 501.4405, L100.0100, L501.1105 #### [facility] [address] [place], [address] Urea nitrogen [Mass/Vol] 11 mg/dL Normal 4-19 [facility] Comment on above: Performed By: #### L 501.4405, L100.0100, L501.1105 #### [facility] [address] [place], [address] Eosinophil percentageOrdered By: Nabeel Patel on 01-23-2025 Eosinophils/100 WBC (Bld) 0.6 % 0-5 [facility] Erythrocyte distribution wid th ratioOrdered By: Nabeel Patel on 01-23-2025 Erythrocyte distribution width (RBC) [Ratio] 13.7 % 11.6-14.6 [facility] Erythrocyte distribution wid th standard deviationOrdered By: Nabeel Patel on 01-23-2025 Erythrocyte distribution width (RBC) [Ratio] 49.6 fl High 35.1-43.9 [facility] Glomerular filtration rate ( GFR) estimation/1.73 sq m using serum, plasma, or whole bOrdered By: Nabeel Patel on 01-23-2025 GFR/1.73 sq M.predicted among non-blacks MDRD (S/P/Bld) [Vol rate/Area] 92 mL/min/{1.73_m2} >60 [facility] Comment on above: mL/min/1.73m2 CKD-EP I Creatinine Equation (2020) Hematocrit Auto (Bld) [Volum e fraction]Ordered By: Nabeel Patel on 01-23-2025 Hematocrit (Bld) [Volume fraction] 35.4 % Low 37-47 [facility] Hemoglobin measurementOrdere d By: Nabeel Patel on 01-23-2025 Hemoglobin (Bld) [Mass/Vol] 12.8 g/dL 12.0-15.0 [facility] Immature granulocytes/100 WB C Auto (Bld)Ordered By: Nabeel Patel on 01-23-2025 Immature granulocytes/100 WBC (Bld) 0.400 % 0.0-0.9 [facility] Comment on above: IG% - Immature Granu locytes (promyelocytes, myelocytes and metamyelocytes) > 1% indicates that a LEFT SHIFT is Present. Laboratory - Chemistry and C hemistry - challengeOrdered By: Nabeel Patel on 01-23-2025 AST [Catalytic activity/Vol] 89 U/L High <32 [facility] MCV (mean corpuscular volume ) determinationOrdered By: Nabeel Patel on 01-23-2025 MCV (RBC) [Entitic vol] 99.7 fL High 81-99 [facility] Mean corpuscular hemoglobin (MCH) determinationOrdered By: Nabeel Patel on 01-23-2025 MCH (RBC) [Entitic mass] 36.1 pg High 27.0-32.0 [facility] Mean corpuscular hemoglobin concentration (MCHC) determinationOrdered By: Nabeel Patel on 01-23-2025 MCHC (RBC) [Mass/Vol] 36.2 g/dL High 32-36 [facility] Mean platelet volume determi nationOrdered By: Nabeel Patel on 01-23-2025 Platelet mean volume (Bld) [Entitic vol] 8.4 fL 6.2-12.0 [facility] Monocyte percentageOrdered B y: Damaritresa Patel on 01-23-2025 Monocytes/100 WBC (Bld) 13.2 % High 0-10 [facility] Neutrophil percentageOrdered By: Nabeel Patel on 01-23-2025 Neutrophils/100 WBC (Bld) 51.7 % 47-70 [facility] Nucleated red blood cell per centageOrdered By: [facility] Pat[facility] on 01-23-2025 Nucleated RBC/100 WBC (Bld) [Ratio] 0 % 0-5 [facility] Oncology Visit Reporton 01-03 Oncology Visit Report [facility] [address] [place] [address] OFFICE VISIT Date of Service: 01/23/25 1311 MR#: [id number] Acct: [id number] Name: MARY ALICE GA Rep #: [id number] : 1950 From: Nabeel Patel MD Age/Sex: 74/F Location: [facility] [place] Status: Signed HPI Subjective Date of Service [...] RESULT Block A E-Cad (ECH-6) positive CK8 ([id number]) positive Calponin-1 (LK736J) negative CK5-6 (D5 1684) negative P40 (BC28) negative P53 (DO-7) negative (null pattern) Ki-67 (30-9) positive, low ( 15%) MORPHOMETRIC ANALYSIS ER (clone 6F11) >95%, strong intensity MI (clone 16/1E2) >95%, strong intensity Her-2Neu (clone CB11) 1-2+ Block B E-Cad (ECH-6) positive CK8 (27xdrdZ73) positive Calponin-1 (DM962X) negative * CK5-6 (D5 1684) negative * P40 (BC28) negative * P53 (DO-7) positive, rare cells (wild type pattern) Ki-67 (30-9) positive * Positive in the area of DCIS. MORPHOMETRIC ANALYSIS ER (clone 6F11) >95%, strong intensity MI (clone 16/1E2) >95%, strong intensity Her-2Neu (clone [...] axillary sen (more content not included)... Normal [facility] Platelet countOrdered By: Anirudh Patel on 01-23-2025 Platelets (Bld) [#/Vol] 122 10*3/uL Low 150-450 [facility] Potassium measurement (mass/ volume)Ordered By: Nabeel Patel on 01-23-2025 Potassium (Unsp spec) [Mass/Vol] 3.6 mmol/L 3.3-5.1 [facility] RBC Auto (Bld) [#/Vol]Ordere d By: Nabeel Patel on 01-23-2025 RBC (Bld) [#/Vol] 3.55 10*6/uL Low 4.2-5.4 [facility] Serum creatinine measurement (mass/volume)Ordered By: Nabeel Patel on 01-23-2025 Creatinine [Mass/Vol] 0.66 mg/dL Low 0.70-1.20 [facility] Serum globulin measurementOr dered By: Nabeel Patel on 01-23-2025 Globulin (S) [Mass/Vol] 3.6 g/dL 2.2-4.2 [facility] Serum glucose measurement (m ass/volume)Ordered By: Nabeel Patel on 01-23-2025 Glucose [Mass/Vol] 129 mg/dL High 70-99 [facility] Serum or plasma alanine gibbs otransferase (ALT) measurementOrdered By: Nabeel Patel on 01-23-2025 ALT [Catalytic activity/Vol] 27 U/L <35 [facility] Serum or plasma albumin seth urement (mass/volume)Ordered By: Nabeel Patel on 01-23-2025 Albumin [Mass/Vol] 3.8 g/dL 3.4-4.8 [facility] Serum or plasma albumin/glob ulin mass ratioOrdered By: Nabeel Patel on 01-23-2025 Albumin/Globulin [Mass ratio] 1.1 {ratio} 0.9-2.4 [facility] Serum or plasma alkaline miguel sphatase measurementOrdered By: Nabeel Patel on 01-23-2025 ALP [Catalytic activity/Vol] 251 U/L High 35-104 [facility] Serum or plasma calcium seth urement (mass/volume)Ordered By: Nabeel Patel on 01-23-2025 Calcium [Mass/Vol] 9.7 mg/dL 7.6-11.0 [facility] Serum or plasma urea nitroge n measurement (mass/volume)Ordered By: Nabeel Patel on 01-23-2025 Urea nitrogen [Mass/Vol] 11 mg/dL 4-19 [facility] Sodium levelOrdered By: Damari Patel on 01-23-2025 Sodium [Moles/Vol] 130 mmol/L Low 133-145 [facility] Total proteinOrdered By: Uriel Patel on 01-23-2025 Protein [Mass/Vol] 7.4 g/dL 5.9-8.4 [facility] White blood cell (WBC) count Ordered By: Nabeel Patel on 01-23-2025 WBC (Bld) [#/Vol] 5.1 10*3/uL 4.4-11.0 [facility] Internal Medicine Office Vis iton 01-22-2025 Internal Medicine Office Visit [facility] [address] [place] [address] [place] [address] OFFICE VISIT Date of Service: 01/22/25 MR#: [id number] Acct: [id number] Name: MARY ALICE GA Rep #: [id number] : 1950 Provider: JIMMY Mohamud Age/Sex: 74/F Location: [facility] Status: Signed Intake Vital Signs 06/17/24 14:11 01/22/25 11:52 Height 5 ft 2 in 5 ft 2 in Weight: 144 lb BMI 26.3 BP 110/60 Blood Pressure Location Rt brachial Position Sitting Respiration 16 Pulse 64 Pulse Source Monitor Temp 97.2 F L Temp Source Temporal Pulse Oximetry (%) 95 Oxygen Delivery Method room air Intake Visit Reasons: ACUTE-MED DISCUSSION/REFILLS [employer] Administrator Required: No Is patient in pain?: Yes [...] 20 mg PO DAILY BP #90 tabs 06/26/ 4 01/23/25 Rx furosemide 40 mg tablet [...] her leg is healed. Back is in CT and will not fill out of states. Pt states that she took some of her husbands oxycodone and that was the first time that she was able to sleep due to leg pain. She states her back pain is manageable. RLL is managed by wound center [facility] in [place] and has been ongoing since last year, compression stockings were left on too long and caused a wound. Pt states that she see's them percy and next appointment is 01/28/25. [facility] Medical History Screening for breast cancer Thrombocytopenia [...] a back specialist while she is in [place] due to multi-level kyphoplasty due to compression [...] on her (more content not included)... Normal [facility] 01-20-2025 [facility] 01-13-2025 [facility] [id number] 01-07-2025 [id number] [facility] 01-06-2025 [facility] 06-26-2024 [facility] 06-18-2024 [facility] CBC-Complete Blood Cnt No Di ffon 06-17-2024 Erythrocyte distribution width (RBC) [Ratio] 15.2 % High 11.6-14.6 [facility] Comment on above: Performed By: #### L 500.4050, L100.0500 #### [facility] [address] [place], [address] Hematocrit (Bld) [Volume fraction] 35.7 % Low 37-47 [facility] Comment on above: Performed By: #### L 500.4050, L100.0500 #### [facility] [address] [place], [address] Hemoglobin (Bld) [Mass/Vol] 11.7 g/dL Low 12.0-15.0 [facility] Comment on above: Performed By: #### L 500.4050, L100.0500 #### [facility] [address] [place], [address] MCH (RBC) [Entitic mass] 28.3 pg Normal 27.0-32.0 [facility] Comment on above: Performed By: #### L 500.4050, L100.0500 #### [facility] [address] [place], [address] MCHC (RBC) [Mass/Vol] 32.8 g/dL Normal 32-36 [facility] Comment on above: Performed By: #### L 500.4050, L100.0500 #### [facility] [address] [place], [address] MCV (RBC) [Entitic vol] 86.2 fL Normal 81-99 [facility] Comment on above: Performed By: #### L 500.4050, L100.0500 #### [facility] [address] [place], [address] Platelet mean volume (Bld) [Entitic vol] 9.2 fL Normal 6.2-12.0 [facility] Comment on above: Performed By: #### L 500.4050, L100.0500 #### [facility] [address] [place], [address] Platelets (Bld) [#/Vol] 200 10*3/uL Normal 150-450 [facility] Comment on above: Performed By: #### L 500.4050, L100.0500 #### [facility] [address] [place], [address] RBC (Bld) [#/Vol] 4.14 10*6/uL Low 4.2-5.4 [facility] Comment on above: Performed By: #### L 500.4050, L100.0500 #### [facility] [address] [place], [address] RDW SD 47.8 fl High 35.1-43.9 [facility] Comment on above: Performed By: #### L 500.4050, L100.0500 #### [facility] [address] [place], [address] WBC (Bld) [#/Vol] 5.1 10*3/uL Normal 4.4-11.0 [facility] Comment on above: Performed By: #### L 500.4050, L100.0500 #### [facility] [address] [place], [address] Comprehensive Metabolic Prof [facility] 06-17-2024 Albumin [Mass/Vol] 3.5 g/dL Normal 3.2-5.0 [facility] Comment on above: Performed By: #### L 500.4050, L100.0500 #### [facility] [address] [place], [address] Albumin/Globulin [Mass ratio] 0.8 {ratio} Low 0.9-2.4 [facility] Comment on above: Performed By: #### L 500.4050, L100.0500 #### [facility] [address] [place], [address] ALK P 235 U/L High 45-117 [facility] Comment on above: Performed By: #### L 500.4050, L100.0500 #### [facility] [address] [place], [address] ALT [Catalytic activity/Vol] 19 U/L Normal 13-56 [facility] Comment on above: Performed By: #### L 500.4050, L100.0500 #### [facility] [address] [place], [address] AST [Catalytic activity/Vol] 22 U/L Normal 15-37 [facility] Comment on above: Performed By: #### L 500.4050, L100.0500 #### [facility] [address] [place], [address] Bilirubin [Mass/Vol] 1.30 mg/dL High 0.20-1.00 [facility] Comment on above: Result Comment: For patients on eltrombopag therapy, use of Dimension [place] TBIL is not recommended. Performed By: #### L 500.4050, L100.0500 #### [facility] [address] [place], [address] BUN/CRE 21.7 RATIO High 10-20 [facility] Comment on above: Performed By: #### L 500.4050, L100.0500 #### [facility] [address] [place], [address] CA,Total 9.8 mg/dL Normal 8.5-10.1 [facility] Comment on above: Performed By: #### L 500.4050, L100.0500 #### [facility] [address] [place], [address] Chloride [Moles/Vol] 98 mmol/L Normal 98-107 [facility] Comment on above: Performed By: #### L 500.4050, L100.0500 #### [facility] [address] [place], [address] CO2 [Moles/Vol] 28.0 mmol/L Normal 21.0-32.0 [facility] Comment on above: Performed By: #### L 500.4050, L100.0500 #### [facility] [address] [place], [address] Creatinine [Mass/Vol] 0.88 mg/dL Normal 0.55-1.02 [facility] Comment on above: Result Comment: The validity of the calculated GFR GFRAA in patients over 70 years has not been determined. Clinical correlation is essential. Performed By: #### L 500.4050, L100.0500 #### [facility] [address] [place], [address] ECRCL 52.58 ml/min Normal [facility] Comment on above: Performed By: #### L 500.4050, L100.0500 #### [facility] [address] [place], [address] EST GFR - AA 82 mL/min Normal >60 [facility] Comment on above: Result Comment: Afri can [place] GFR Calc Performed By: #### L 500.4050, L100.0500 #### [facility] [address] [place], [address] GAP 7 Normal 5-15 [facility] Comment on above: Performed By: #### L 500.4050, L100.0500 #### [facility] [address] [place], [address] GFR/1.73 sq M.predicted among non-blacks MDRD (S/P/Bld) [Vol rate/Area] 67 mL/min/{1.73_m2} Normal >60 [facility] Comment on above: Result Comment: Non- GFR Calc Performed By: #### L 500.4050, L100.0500 #### [facility] [address] [place], [address] Globulin (S) [Mass/Vol] 4.3 g/dL High 2.2-4.2 [facility] Comment on above: Performed By: #### L 500.4050, L100.0500 #### [facility] [address] [place], [address] Glucose [Mass/Vol] 74 mg/dL Normal 74-106 [facility] Comment on above: Performed By: #### L 500.4050, L100.0500 #### [facility] [address] [place], [address] Potassium [Moles/Vol] 4.2 mmol/L Normal 3.5-5.1 [facility] Comment on above: Performed By: #### L 500.4050, L100.0500 #### [facility] [address] [place], [address] Sodium [Moles/Vol] 133 mmol/L Low 136-145 [facility] Comment on above: Performed By: #### L 500.4050, L100.0500 #### [facility] [address] [place], [address] T PROT 7.8 g/dL Normal 6.4-8.2 [facility] Comment on above: Performed By: #### L 500.4050, L100.0500 #### [facility] [address] [place], [address] Urea nitrogen [Mass/Vol] 19 mg/dL High 7-18 [facility] Comment on above: Performed By: #### L 500.4050, L100.0500 #### [facility] [address] [place], [address] Oncology Visit Reporton 06-04 Oncology Visit Report [facility] [address] [place] [address] OFFICE VISIT Date of Service: 06/17/24 1410 MR#: [id number] Acct: [id number] Name: MARY ALICE GA Rep #: [id number] : 1950 From: Cesia Perry NP DECKHAND CLAM DREDGE -C Age/Sex: 73/F Location: [facility] [place] Status: Signed HPI Subjective Date of Service [...] RESULT Block A E-Cad (ECH-6) positive CK8 (31ideaX63) positive Calponin-1 (EH345U) negative CK5-6 (D5 1684) negative P40 (BC28) negative P53 (DO-7) negative (null pattern) Ki-67 (30-9) positive, low ( 15%) MORPHOMETRIC ANALYSIS ER (clone 6F11) >95%, strong intensity MI (clone 16/1E2) >95%, strong intensity Her-2Neu (clone CB11) 1-2+ Block B E-Cad (ECH-6) positive CK8 (33heboS59) positive Calponin-1 (JI191Y) negative * CK5-6 (D5 1684) negative * P40 (BC28) negative * P53 (DO-7) positive, rare cells (wild type pattern) Ki-67 (30-9) positive * Positive in the area of DCIS. MORPHOMETRIC ANALYSIS ER (clone 6F11) >95%, strong intensity MI (clone 16/1E2) >95%, strong intensity Her-2Neu (clone [...] Left axillary (more content not included)... Normal [facility] SCREEN MAMM (CAD) W/ZANA UNI Grant 06-14-2024 SCREEN MAMM (CAD) W/ZANA UNI R [facility] [address] [place] [address] SCREEN MAMM (CAD) W/ZANA UNI R MR#: [id number] Acct: [id number] Name: MARY ALICE GA Rep #: [id number] : 1950 F 73 From: Nahum nieves MD PCP: Dr. Khanh Rodriguez MD Status: REG [facility] Study: SCREEN MAMM (CAD) W/ZANA UNI R Date of Exam: Exam# [id number] Ordering Dr: Cesia Perry NP DECKHAND CLAM DREDGE -C [id number] MAMMOGRAPHY - UNILATERAL SCREENING: RIGHT BREAST REASON [...] delay biopsy of a clinically suspicious abnormality. [id number] Electronically Signed: Nahum Kelley MD at 9:20 EDT Reading Location ID and State: [address] [place] [address] , Service support , CC: SAMUEL Perry; Dr. Khanh Rodriguez MD Gis Web Developer: Signed Normal [facility] CNOVon 06-12-2024 [facility] Office Visit (SPNMED ) -- MARY ALICE GA ([id number]) 1950 F Date Time Provider Department 06/12/24 10:20 AM MONSE MERLOS SPNMED During your visit today, we recorded the following information about you: Pulse Blood pressure Weight Height 52/minute 126/63 69 kg 1.575 m Monse Merlos PA-C 06/17/2024 7:38 PM Addendum Monse Merlos PA-C [facility] [address] [place] [address] 06/12/2024 ASSESSMENT AND PLAN: Assessment : Encounter [...] She had some plain radiographs done at [facility], but did not bring those here for review today. 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 This includes zzlv-mu-lewg time, review of chart records regarding conservative care history, spine-pertinent imaging, and communication/care coordination with referring provider, problem-specific history-taking and counseling/education regarding treatment options. cc: Marisela Mccarty [address] [address] Results of consultation to be transmitted via electronic medical record for those providers who practice within [facility] or with access to [employer] via MD Connect, or via letter. ########################## [...] 300 mg (more content not included)... [facility] CNTHERAPYon 06-12-2024 CNTHERAPY Normal [facility] Partial Thromboplast Timeon 05-31-2024 aPTT Coag (Bld) [Time] 38.4 s High 24.1-36.2 [facility] Comment on above: Performed By: #### L 300.3900, L300.4310, L100.1900 #### [facility] [address] [place], [address] Platelet Counton 05-31-2024 Platelets (Bld) [#/Vol] 167 10*3/uL Normal 150-450 [facility] Comment on above: Performed By: #### L 300.3900, L300.4310, L100.1900 #### [facility] [address] [place], [address] Procedure Reporton 4 Procedure Report [facility] Medical Records Department [address] [place] [address] Procedure Report 05/31/24 1052 MR#: [id number] Acct: [id number] Name: MARY ALICE GA Rep #: [id number] : 1950 73 From: Yamile Glez DECKHAND CLAM DREDGE-C PCP: Dr. Khanh Rodriguez MD Status:[facility] Location: CT Procedure Report Date of Procedure: [...] independent monitoring. Procedures Radiology Radiology US Procedures: 35364 Liver Biopsy Multi Select Codes Radiology Radiology CT Procedures: 44497-42 CT guidance parenchymal tissue 05/31/24 1055 Cosigner Signature (if applicable): CC: SAMUEL Glez; Dr. Khanh Rodriguez MD; Johny Davila DO Signed Normal [facility] Prothrombin Time w/INRon INR Coag (PPP) [Relative time] 1.3 {INR} Normal [facility] Comment on above: Performed By: #### L 300.3900, L300.4310, L100.1900 #### [facility] [address] [place], [place], [address] PT Coag (PPP) [Time] 15.8 s High 11.7-14.9 [facility] Comment on above: Performed By: #### L 300.3900, L300.4310, L100.1900 #### [facility] [address] [place], [address] Trichrome (control)on 2023 Trichrome (control) ------ Patient Age/Sex Location Account Attending Physician MARY ALICE GA 73/F CT [id number] Johny Davila DO Specimen: [id number] Received: 05/31/24-1206 Status: KATHRYN Estrella Num: [id number] Spec Type: ASP GLENNA Louis Dr: Johny Davila DO HEADER OPERATION: CT [...] specimen is totally submitted in one cassette. SJ. 05/31/2024 TC:3 [facility]:[id number] Patient Age/Sex Location Account Attending Physician MARY ALICE GA 73/F CT [id number] Johny Friend, DO Signed (signature on file) Dr. Ronal Kenyon, 06/03/24 1216 Normal [facility] Comment on above: Performed By: #### L 501.4405, L100.0100, L501.1105 #### [facility] [place], [place], [address] CNTHERAPYon 04-30-2024 CNTHERAPY OT/PT/Speech Visit ( PTWS) -- MARY ALICE GA ([id number]) 1950 F Date Time Provider Department 04/30/24 8:15 AM LISETH ALANIS Date Time Provider Department Center 04/30/2024 8:15 AM [id number]-HLISETH ALANIS [facility] Reason for Visit: PT Discharge [752] Primary [...] mg by mouth three times daily. Normal [facility] CNOVon 04-23-2024 CNOV Office Visit (VASSWS ) -- MARY ALICE GA ([id number]) 1950 F Date Time Provider Department 04/23/24 10:30 AM GT YIN VASSWS During your visit today, we recorded the following information about you: Pulse Blood pressure 59/minute 126/68 Gt Yin, 05/23/2024 4:21 PM Signed [facility] [place] DEPARTMENT OF VASCULAR SURGERY OUTPATIENT VISIT DATE [...] vein at the knee crease. 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 Wounds progressing Recommend follow up in May She may benefit fr (more content not included)... Normal [facility] CNTHERAPYon 04-23-2024 CNTHERAPY OT/PT/Speech Visit ( PTWS) -- MARY ALICE GA ([id number]) 1950 F Date Time Provider Department 04/23/24 2:15 PM LISETH ALANIS PTWS Date Time Provider Department Center 04/23/2024 2:15 PM [id number]-ILISETH ALANIS Reason for Visit: PT Progress Note [...] mg by mouth three times daily. Normal [facility] CNTHERAPYon 04-16-2024 CNTHERAPY OT/PT/Speech Visit ( PTWS) -- MARY ALICE GA F ([id number]) 1950 F Date Time Provider Department 04/16/24 10:30 AM LISETH ALANIS PTLUTHER Date Time Provider Department Center 04/16/2024 10:30 AM [id number]-CLISETH ALANIS Reason for Visit: Physical Therapy [503] [...] mg by mouth three times daily. -- Priming Machine Operator: Therapy (PT/OT/Speech/Resp) ID: [id number] 04/16/2024 11:01 AM Author: LISETH ALANIS Signed by LISETH ALANIS PT on 04/16/2024 at 11:01 AM Document text: Program_ID:[id number] Access Code: [email or web address] URL: [email or web address] Date: 04-16-2024 Prepared By: Liseth Alanis Program Notes Exercises - Lateral Shift Correction at Wall - 2-3 x daily - 7 x weekly - 4 sets - 10 reps Normal [facility] THERAPY NTon 04-16-2024 THERAPY NT HNO ID: [id number] Author: LISETH ALANIS PT Service: ? Author Type: Physical Therapist Type: Therapy (PT/OT/Speech/Resp) Filed: 04/16/2024 11:01 Note Text: Program_ID:[id number] Access Code: [email or web address] URL: [email or web address] Date: 04-16-2024 Prepared By: Liseth Alanis Program Notes Exercises - Lateral Shift Correction at Wall - 2-3 x daily - 7 x weekly - 4 sets - 10 reps Normal [facility] CNOVon 04-03-2024 CNOV Office Visit (VSLWST ) -- MARY ALICE GA ([id number]) 1950 F Date Time Provider Department 04/03/24 2:30 PM [facility] WSTR VSLWST During your visit today, we recorded the following information about you: Referring Provider: GT YIN [[id number]] Allergies As of Date: 04/03/2024 Noted Allergy Reaction CLARITHROMYCIN (BULK) 06/15/2010 14 - Other: See Comments Comments: pancrititis STEROIDS (BETAMETHASONE DIPROPION*06/15/2010 5 - Intolerance Comments: pancritis Date Reviewed: 04/02/2024 Reviewed by: Latonia Fernandez OCCA - Fully Assessed Visit Diagnoses:Venous (peripheral) insufficiency [I87.2] 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 #[id number] Prescriptions as of 05/22/2024 - LASIX 40 [...] by DOUGLAS STARR CMA on 05/22/24 Normal [facility] VENOUS INCOMPETENCY ALBERT V LABon 04-03-2024 VENOUS INCOMPETENCY [facility] Non-Invasive Vascular Laboratory [facility] Venous Valvular Incompetency Bilateral/Complete Date of [...] equal to 0.5 second. Size 0.37 cm. [employer] [place] vein proximal/mid calf Augmentation reflux none. Valsalva reflux none. Size 0.35 cm. Depth 0.94 cm. [employer] [place] vein proximal/mid calf Augmentation reflux none. Valsalva reflux none. Size 0.22 cm. Depth 0.58 cm. [employer] [place] vein mid calf Augmentation reflux none. Size [...] AND PERFORATORS Varicosity knee Size 0.43 cm. [employer] vein mid calf Augmentation reflux greater than or equal to 0.35 second. Size 0.33 cm. Depth 0.99 cm. [employer] [place] vein distal calf Valsalva reflux greater than [...] vein at the knee crease. An incompetent manager of recruiting is noted at mid calf and another at distal calf. Negative for valvular incompetency in the anterior accessory great saphenous vein. Varicosities arise proximal thigh and course along anterior thigh. Negative for valvular incompetency in the small saphenous vein. Technologist: Daphnie Evans (more content not included)... Normal [facility] Vein - bilateralon 2023 Non-Invasive Vascular Laboratory [facility] Venous Valvular Incompetency Bilateral/Complete Date of [...] equal to 0.5 second. Size 0.37 cm. [employer] vein proximal/mid calf Augmentation reflux none. Valsalva reflux none. Size 0.35 cm. Depth 0.94 cm. [employer] vein proximal/mid calf Augmentation reflux none. Valsalva reflux none. Size 0.22 cm. Depth 0.58 cm. [place] vein mid calf Augmentation reflux none. Size [...] AND PERFORATORS Varicosity knee Size 0.43 cm. [place] vein mid calf Augmentation reflux greater than or equal to 0.35 second. Size 0.33 cm. Depth 0.99 cm. [place] vein distal calf Valsalva reflux greater than [...] vein at the knee crease. An incompetent manager of recruiting is noted at mid calf and another at distal calf. Negative for valvular incompetency in the anterior accessory great saphenous vein. Varicosities arise proximal thigh and course along anterior thigh. Negative for valvular incompetency in the small sapheno (more content not included)... [facility] CNOVon 04-02-2024 CNOV Office Visit (ORMDNA ) -- MARY ALICE GA ([id number]) 1950 F Date Time Provider Department 04/02/24 1:00 PM MARISELA MCCARTY During your visit today, we recorded the following information about you: Weight Height 69 kg 1.575 m Marisela Mccarty MD 04/02/2024 4:29 PM Signed Orthopaedic Office Note: April 02, 2024 4:24 PM Mary Alice Chucky Migdalia 73 year old History: Mary Alice is here for evaluation of her left hip. She has a known history of substantial lumbar scoliosis, likely degenerative She had a femoral neck fracture 3 years ago in [place] and was treated with a uncemented hemiarthroplasty [...] which included preparing to see the patient, [id number] patient care, completing clinical documentation, obtaining and/or [...] - Fully Assessed Reason for Visit: New [103685] Pain [78] Primary Visit Diagnosis:S/P hip hemiarthroplasty [Z96.649] Other Visit Diagnosis:Degenerative scoliosis [M41.50] Order(s):CONSULT TO [facility] [[id number]] Order #: [id number]: 1 FUTURE Prescriptions as of 04/02/2024 - [...] Number: [id number] (more content not included)... Normal [facility] XR Hip - left AP and Lateral on 04-02-2024 IMPRESSION: Findings as discussed in results portion of report Gis Web Developer: [email or web address] Transcribe Date/Time: Apr 02 2024 2:38P Dictated by : ZOHREH HURTADO DO This examination was interpreted and the report reviewed and electronically signed by: ZOHREH HURTADO DO on Apr 02 2024 2:39PM [facility] * * *Final Report* * * [...] Marked narrowing of the RIGHT hip joint [facility] Provider, Krishna Carpenter - 04/02/2024 * [...] as discussed in results portion of report Gis Web Developer: [email or web address] Transcribe Date/Time: Apr 02 2024 2:38P Dictated by : ZOHREH HURTADO DO This examination was interpreted and the report reviewed and electronically signed by: ZOHREH HURTADO DO on Apr 02 2024 2:39PM [facility] Radiology Study observation (narrative) [facility] XR Hip - left AP and Lateral Ordered By: [facility] Provider on 04-02-2024 [facility] CNTHERAPYon 04-01-2024 CNTHERAPY OT/PT/Speech Visit ( PTWS) -- MARY ALICE GA ([id number]) 1950 F Date Time Provider Department 04/01/24 4:15 PM LISETH ALANIS Date Time Provider Department Center 04/01/2024 4:15 PM [id number]-RLISETH ALANIS Reason for Visit: Physical Therapy [503] [...] by mouth three times daily. -- Normal [facility] CNTHERAPYon 03-26-2024 CNTHERAPY OT/PT/Speech Visit ( PTWS) -- MARY ALICE GA ([id number]) 1950 F Date Time Provider Department 03/26/24 11:15 AM LISETH ALANIS PTWS Date Time Provider Department Center 03/26/2024 11:15 AM [id number] ALANIS PTWS Eliot Carrillo Reason for Visit: [...] mg by mouth three times daily. -- Priming Machine Operator: Therapy (PT/OT/Speech/Resp) ID: [id number] 03/26/2024 11:46 AM Author: LISETH ALANIS Signed by LISETH ALANIS PT on 03/26/2024 at 11:46 AM Document text: Program_ID:[id number] Access Code: [email or web address] URL: [email or web address] Date: 03-26-2024 Prepared By: Liseth Alanis Program [...] - 2 sets - 10 reps Normal [facility] THERAPY NTon 03-26-2024 THERAPY NT HNO ID: [id number] Author: LISETH ALANIS, LIDIA Service: ? Author Type: Physical Therapist Type: Therapy (PT/OT/Speech/Resp) Filed: 03/26/2024 11:46 Note Text: Program_ID:[id number] Access Code: [email or web address] URL: [email or web address] Date: 03-26-2024 Prepared By: Liseth Alanis Program [...] - 2 sets - 10 reps Normal [facility] CNTHERAPYon 03-20-2024 CNTHERAPY OT/PT/Speech Visit ( PTWS) -- MARY ALICE GA ([id number]) 1950 F Date Time Provider Department 03/20/24 12:00 PM LISETH ALANIS PTLUTHER Date Time Provider Department Center 03/20/2024 12:00 PM [id number] ALANIS PTLUTHER Carr[place] Reason for Visit: Physical [...] by mouth three times daily. -- Normal [facility] [id number] 03-13-2024 [id number] HNO ID: [id number] Author: LISETH ALANIS PT Service: ? Author Type: Physical Therapist Type: [id number] Filed: 03/13/2024 13:32 Note Text: [facility] Rehabilitation [facility] Sports Therapy Physical Therapy Plan of Care Certification Patient Name: Mary Alice Ga : 1950 [facility] #: [id number] Date: 03/13/2024 To: Solo Calderón PA From [...] to reflect decreased fall risk. -- PROGRESSING Jessamine in home exercise program including cardiovascular exercise. [...] Patient to be seen for Gait Training (93652), Self-halfway management (71403), Therapeutic activities (86936), Manual therapy (95113), Neuromuscular re-education (38661), Therapeutic exercise (08249) PLAN FOR NEXT VISIT: work on step ups, uneven surfaces For further details regarding this patient refer to the Physical Therapy electronically documented visit dated 03/13/2024. Provider Attestation I have reviewed the treatment plan for Mary Alice Ga, [facility]# [id number] for the period of 03/13/24 -- 05/08/24, established on 03/13/2024. Signature certifies the need for therapy services. Normal [facility] CNTHERAPYon 03-13-2024 CNTHERAPY OT/PT/Speech Visit ( PTWS) -- MARY ALICE AG ([id number]) 1950 F Date Time Provider Department 03/13/24 12:45 PM LISETH ALANIS Date Time Provider Department [place] 03/13/2024 12:45 PM [id number] ALANIS [place] Reason for Visit: PT Progress Note [1596] [...] twice daily. Letter Text Letter Text Normal [facility] KIMBERLIOVmiguel 02-27-2024 CNOV Office Visit (VASSWS ) -- MARY ALICE GA ([id number]) 1950 F Date Time Provider Department 02/27/24 8:30 AM GT YIN VASSWS During your visit today, we recorded the following information about you: Pulse Blood pressure 61/minute 128/66 Gt Yin, DO 03/26/2024 1:56 PM Signed [facility] [place] DEPARTMENT OF VASCULAR SURGERY OUTPATIENT VISIT DATE [...] past year. She has been treated at [facility]. They recommend HBO to help with healing. She has history of AGSV EVLT and phlebectomy in 2014. She had reflux testing at [facility] which demonstrated reflux and had ablation a few months ago and has had issue healing since the procedure. She wears compression stockings- knee high stockings. She currently has epifix in place with an compression dressing. 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 She stands for long periods of time during the day. 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 Has used compression pumps [...] and americo (more content not included)... Normal [facility] CNTHERAPYon 02-20-2024 CNTHERAPY OT/PT/Speech Visit ( PTWS) -- MIGDALIAMARY ALICE ([id number]) 1950 F Date Time Provider Department 02/20/24 10:30 AM LISETH ALANIS Date Time Provider Department [place] 02/20/2024 10:30 AM [id number] ALANIS Reason for Visit: Physical Therapy [503] [...] by mouth three times daily. -- Normal [facility] CNTHERAPYon 02-13-2024 CNTHERAPY OT/PT/Speech Visit ( PTWS) -- MARY ALICE GA ([id number]) 1950 F Date Time Provider Department 02/13/24 10:30 AM LISETH ALANIS Date Time Provider Department [place] 02/13/2024 10:30 AM [id number] ALANIS Reason for Visit: Physical Therapy [503] [...] mg by mouth three times daily. -- Priming Machine Operator: Therapy (PT/OT/Speech/Resp) ID: [id number] 02/13/2024 11:06 AM Author: LISETH ALANIS Signed by LISETH ALANIS PT on 02/13/2024 at 11:06 AM Document text: Program_ID:[id number] Access Code: [email or web address] URL: [email or web address] Date: 02-13-2024 Prepared By: Liseth Alanis Program [...] - 2 sets - 12 reps Normal [facility] THERAPY NTon 02-13-2024 THERAPY NT HNO ID: [id number] Author: LISETH ALANIS PT Service: ? Author Type: Physical Therapist Type: Therapy (PT/OT/Speech/Resp) Filed: 02/13/2024 11:06 Note Text: Program_ID:[id number] Access Code: [email or web address] URL: [email or web address] Date: 02-13-2024 Prepared By: Liseth Alanis Program [...] - 2 sets - 12 reps Normal [facility] CNTHERAPYon 02-06-2024 CNTHERAPY OT/PT/Speech Visit ( PTWS) -- MARY ALICE GA ([id number]) 1950 F Date Time Provider Department 02/06/24 8:15 AM LISETH ALANIS Date Time Provider Department Center 02/06/2024 8:15 AM [id number] ALANIS PTLUTHER [place] Reason for Visit: Physical [...] mg by mouth three times daily. -- Priming Machine Operator: Therapy (PT/OT/Speech/Resp) ID: [id number] 02/06/2024 8:47 AM Author: LISETH ALANIS Signed by LISETH ALANIS PT on 02/06/2024 at 8:47 AM Document text: Program_ID:[id number] Access Code: [email or web address] URL: [email or web address] Date: 02-06-2024 Prepared By: Liseth Alanis Program [...] - 4 sets - 15 reps Normal [facility] THERAPY NTon 02-06-2024 THERAPY NT HNO ID: [id number] Author: LISETH ALANIS PT Service: ? Author Type: Physical Therapist Type: Therapy (PT/OT/Speech/Resp) Filed: 02/06/2024 08:47 Note Text: Program_ID:[id number] Access Code: [email or web address] URL: [email or web address] Date: 02-06-2024 Prepared By: Liseth Alanis Program [...] - 4 sets - 15 reps Normal [facility] CNTHERAPYon 01-30-2024 CNTHERAPY OT/PT/Speech Visit ( PTWS) -- MARY ALICE GA ([id number]) 1950 F Date Time Provider Department 01/30/24 10:30 AM LISETH ALANIS PTLUTHER Date Time Provider Department [place] 01/30/2024 10:30 AM [id number] ALANIS Reason for Visit: Physical Therapy [503] [...] mg by mouth three times daily. -- Priming Machine Operator: Therapy (PT/OT/Speech/Resp) ID: [id number] 01/30/2024 11:07 AM Author: LISETH ALANIS Signed by LISETH ALANIS PT on 01/30/2024 at 11:07 AM Document text: Program_ID:[id number] Access Code: [email or web address] URL: [email or web address] Date: 01-30-2024 Prepared By: Liseth Alanis Program Notes Exercises - Seated Lumbar Flexion Stretch - 2-3 x daily - 7 x weekly - 2-3 sets - 10 reps Normal [facility] THERAPY NTon 01-30-2024 THERAPY NT HNO ID: [id number] Author: LISETH ALANIS PT Service: ? Author Type: Physical Therapist Type: Therapy (PT/OT/Speech/Resp) Filed: 01/30/2024 11:07 Note Text: Program_ID:[id number] Access Code: [email or web address] URL: [email or web address] Date: 01-30-2024 Prepared By: Liseth Alanis Program Notes Exercises - Seated Lumbar Flexion Stretch - 2-3 x daily - 7 x weekly - 2-3 sets - 10 reps Normal [facility] [id number] 01-24-2024 [id number] HNO ID: [id number] Author: LISETH ALANIS PT Service: ? Author Type: Physical Therapist Type: [id number] Filed: 01/24/2024 17:24 Note Text: [facility] Rehabilitation [facility] Sports Therapy Physical Therapy Plan of Care Certification Patient Name: Mary Alice Ga : 1950 [facility] #: [id number] Date: 01/24/2024 To: Solo Calderón PA From Therapist: Liseth Alanis PT RE: Patient Certification/ Recertification Your review, approval and electronic signature are required in order to comply with Payor: MEDICARE / Plan: MEDICARE A AND B / Product Type: Medicare / Multigig. The identified Physical Therapy PLAN OF CARE [...] more repetitions to reflect decreased fall risk. Jessamine in home exercise program including cardiovascular exercise. Complete 6 MWT x1545 ft or more with or without SC. Patient Goals: amb without an AD from handicap spot to front door without LOB Planned Interventions, Frequency, and Duration: Current Frequency: 1x/week Duration: 6 weeks Total Number of Visits Planned: 6 Planned Treatment Interventions: Self-halfway management (28460), Gait Training (85031), Therapeutic activities (98537), Manual therapy (42029), Neuromuscular re-education (39141), Therapeutic exercise (27460) PLAN FOR NEXT VISIT: 6 MWT Patient demonstrates good understanding of plan of care and treatment. The above goals and plan of care were discussed and agreed upon by patient/family. For further details regarding this patient refer to the Physical Therapy electronically documented visit dated 01/24/2024. Provider Attestation I have reviewed the treatment plan for Mary Alice Mccallcharlotte [facility]# [id number] for the period of 01/24/24 -- 03/20/24, established on 01/24/2024. Signature certifies the need for therapy services. Normal [facility] CNTHERAPYon 01-24-2024 CNTHERAPY OT/PT/Speech Visit ( PTWS) -- MARY ALICE GA ([id number]) 1950 F Date Time Provider Department 01/24/24 3:45 PM LISETH ALANIS PTLUTHER Date Time Provider Department Center 01/24/2024 3:45 PM [id number] ALANIS Reason for Visit: PT Eval [747] Primary [...] Letter Text Letter Text Letter Text Normal [facility] Absolute lymphocyte countOrd ered By: Solo Calderón on 01-05-2024 Lymphocytes Auto (Unsp spec) [#/Vol] 0.97 10*3/uL 0.83-4.51 [facility] Automated lymphocyte count a s percentage of total leukocytesOrdered By: Solo Calderón on 01-05-2024 Lymphocytes/100 WBC Auto (Unsp spec) 11.0 % 19-41 [facility] Basophil percentageOrdered B y: oSlo Calderón on 01-05-2024 Basophils/100 WBC (Bld) 0.2 % 0-1 [facility] Bilirubin [Mass/Vol] 4.80 mg/dL 0.20-1.00 [facility] Comment on above: For patients on eltr ombopag therapy, use of Dimension [place] TBIL is not recommended. Chloride [Moles/Vol] 98 mmol/L 98-107 [facility] Eosinophils/100 WBC (Bld) 0.5 % 0-5 [facility] Glucose [Mass/Vol] 113 mg/dL 74-106 [facility] Comment on above: Fasting Glucose resu lt from 100 to 125 mg/dL suggests IMPAIRED HOMEOSTASIS per A.D.A. criteria. Hemoglobin (Bld) [Mass/Vol] 9.9 g/dL 12.0-15.0 [facility] Monocytes/100 WBC (Bld) 7.3 % 0-10 [facility] Neutrophils (Bld) [#/Vol] 7.1 10*3/uL 2.0-7.7 [facility] Neutrophils/100 WBC (Bld) 80.5 % 47-70 [facility] Potassium [Moles/Vol] 3.0 mmol/L 3.5-5.1 [facility] Protein [Mass/Vol] 6.1 g/dL 6.4-8.2 [facility] Sodium [Moles/Vol] 131 mmol/L 136-145 [facility] WBC (Bld) [#/Vol] 8.9 10*3/uL 4.4-11.0 [facility] Determination of erythrocyte mean corpuscular volume (MCV)Ordered By: Solo Calderón on 01-05-2024 MCV (RBC) [Entitic vol] 105.2 fL 81-99 [facility] Erythrocyte distribution wid th ratioOrdered By: Solo Calderón on 01-05-2024 Erythrocyte distribution width (RBC) [Ratio] 13.0 % 11.6-14.6 [facility] Erythrocyte distribution wid th standard deviationOrdered By: Solo Calderón on 01-05-2024 Erythrocyte distribution width (RBC) [Entitic vol] 50.1 fL 35.1-43.9 [facility] Hematocrit Auto (Bld) [Volum e fraction]Ordered By: Solo Calderón on 01-05-2024 Hematocrit (Bld) [Volume fraction] 28.4 % 37-47 [facility] Immature granulocytes/100 WB C Auto (Bld)Ordered By: Solo Calderón on 01-05-2024 Immature granulocytes/100 WBC (Bld) 0.500 % 0.0-0.9 [facility] Comment on above: IG% - Immature Granu locytes (promyelocytes, myelocytes and metamyelocytes) > 1% indicates that a LEFT SHIFT is Present. Laboratory - Chemistry and C hemistry - challengeOrdered By: Solo Calderón on 01-05-2024 Albumin/Globulin [Mass ratio] 0.7 {ratio} 0.9-2.4 [facility] ALP [Catalytic activity/Vol] 201 U/L 45-117 [facility] ALT [Catalytic activity/Vol] 26 U/L 13-56 [facility] CO2 [Moles/Vol] 24.0 mmol/L 21.0-32.0 [facility] Cobalamin (Vitamin B12) [Mass/Vol] 1503 pg/mL 211-911 [facility] Globulin (S) [Mass/Vol] 3.5 g/dL 2.2-4.2 [facility] Natriuretic peptide B (Bld) [Mass/Vol] 279.9 pg/mL 0-100 [facility] Urea nitrogen/Creatinine [Mass ratio] 8.1 mg/mg 10-20 [facility] Laboratory - Hematology and Cell countsOrdered By: Solo Calderón on 01-05-2024 MCH (RBC) [Entitic mass] 36.7 pg 27.0-32.0 [facility] MCHC (RBC) [Mass/Vol] 34.9 g/dL 32-36 [facility] Nucleated RBC/100 WBC (Bld) [Ratio] 0 % 0-5 [facility] Platelet mean volume (Bld) [Entitic vol] 9.6 fL 6.2-12.0 [facility] Platelets (Bld) [#/Vol] 165 10*3/uL 150-450 [facility] No Panel InformationOrdered By: Solo Calderón on 01-05-2024 Estimated GFR (MDRD) Amer 122 mL/min >60 [facility] Comment on above: GFR Calc Estimated GFR (MDRD) Non-Af Amer 101 mL/min >60 [facility] Comment on above: Non- GFR Calc Folate 9.10 ng/mL 3.1-55.4 [facility] RBC Auto (Bld) [#/Vol]Ordere d By: Solo Calderón on 01-05-2024 RBC (Bld) [#/Vol] 2.70 10*6/uL 4.2-5.4 [facility] Serum or plasma calcium seth urement (mass/volume)Ordered By: Solo Calderón on 01-05-2024 Calcium [Mass/Vol] 8.6 mg/dL 8.5-10.1 [facility] Serum or plasma creatinine m easurement (mass/volume)Ordered By: Solo Calderón on 01-05-2024 Creatinine [Mass/Vol] 0.62 mg/dL 0.55-1.02 [facility] Comment on above: The validity of the calculated GFR & GFRAA in patients over 70 years has not been determined. Clinical correlation is essential. Serum or plasma thiamine mitul surement (mass/volume)Ordered By: Solo Calderón on 01-05-2024 Thiamine [Mass/Vol] 78.3 nmol/L 66.5-200.0 [facility] Serum or plasma urea nitroge n measurement (mass/volume)Ordered By: Solo Calderón on 01-05-2024 Urea nitrogen [Mass/Vol] 5 mg/dL 7-18 [facility] Serum or plasma zinc measure ment (mass/volume)Ordered By: Solo Calderón on 01-05-2024 Zinc [Mass/Vol] 50 ug/dL 44-115 [facility] Comment on above: Detection Limit = 5P erformed at: [facility] Lab[address] [id number] Director: Lesly Carty MD, Phone: [phone] Thin prep Papanicolaou smear with manual screeningOrdered By: Solo Calderón on 01-05-2024 Thin prep Papanicolaou smear with manual screening 2.6 g/dL 3.2-5.0 [facility] Thin prep Papanicolaou smear with manual screening 43 U/L 15-37 [facility] Thin prep Papanicolaou smear with manual screening 9 5-15 [facility] Basophil percentageOrdered B y: Harrison Roper on 12-30-2023 Bilirubin [Mass/Vol] 4.20 mg/dL 0.20-1.00 [facility] Comment on above: For patients on eltr ombopag therapy, use of Dimension [place] TBIL is not recommended. Chloride [Moles/Vol] 109 mmol/L 98-107 [facility] Glucose [Mass/Vol] 88 mg/dL 74-106 [facility] Potassium [Moles/Vol] 3.8 mmol/L 3.5-5.1 [facility] Protein [Mass/Vol] 5.1 g/dL 6.4-8.2 [facility] Sodium [Moles/Vol] 134 mmol/L 136-145 [facility] Direct bilirubinOrdered By: Harrison Roper on 12-30-2023 Bilirubin.direct [Mass/Vol] 3.14 mg/dL 0.00-0.30 [facility] Laboratory - Chemistry and C hemistry - challengeOrdered By: Harrison Roper on 12-30-2023 ALP [Catalytic activity/Vol] 185 U/L 45-117 [facility] ALT [Catalytic activity/Vol] 35 U/L 13-56 [facility] CO2 [Moles/Vol] 21.0 mmol/L 21.0-32.0 [facility] Globulin (S) [Mass/Vol] 2.9 g/dL 2.2-4.2 [facility] Urea nitrogen/Creatinine [Mass ratio] 25.5 mg/mg 10-20 [facility] No Panel InformationOrdered By: Harrison Roper on 12-30-2023 Estimated Creatinine Clearance Calc 62.03 ml/min [facility] Estimated GFR (MDRD) Amer 140 mL/min >60 [facility] Comment on above: GFR Calc Estimated GFR (MDRD) Non-Af Amer 116 mL/min >60 [facility] Comment on above: Non- GFR Calc Serum or plasma calcium seth urement (mass/volume)Ordered By: Harrison Roper on 12-30-2023 Calcium [Mass/Vol] 8.2 mg/dL 8.5-10.1 [facility] Serum or plasma creatinine m easurement (mass/volume)Ordered By: Harrison Roper on 12-30-2023 Creatinine [Mass/Vol] 0.55 mg/dL 0.55-1.02 [facility] Comment on above: The validity of the calculated GFR & GFRAA in patients over 70 years has not been determined. Clinical correlation is essential. Serum or plasma urea nitroge n measurement (mass/volume)Ordered By: Harrison Roper on 12-30-2023 Urea nitrogen [Mass/Vol] 14 mg/dL 7-18 [facility] Thin prep Papanicolaou smear with manual screeningOrdered By: Harrison Roper on 12-30-2023 Thin prep Papanicolaou smear with manual screening 2.2 g/dL 3.2-5.0 [facility] Thin prep Papanicolaou smear with manual screening 94 U/L 15-37 [facility] Thin prep Papanicolaou smear with manual screening 4 5-15 [facility] Absolute lymphocyte countOrd ered By: Harrison Roper on 12-29-2023 Lymphocytes Auto (Unsp spec) [#/Vol] 0.36 10*3/uL 0.83-4.51 [facility] Automated lymphocyte count a s percentage of total leukocytesOrdered By: Harrison Roper on 12-29-2023 Lymphocytes/100 WBC Auto (Unsp spec) 7.5 % 19-41 [facility] Basophil percentageOrdered B y: Harrison Roper on 12-29-2023 Basophils/100 WBC (Bld) 0.0 % 0-1 [facility] Eosinophils/100 WBC (Bld) 0.0 % 0-5 [facility] Hemoglobin (Bld) [Mass/Vol] 8.2 g/dL 12.0-15.0 [facility] Monocytes/100 WBC (Bld) 2.5 % 0-10 [facility] Neutrophils (Bld) [#/Vol] 4.3 10*3/uL 2.0-7.7 [facility] Neutrophils/100 WBC (Bld) 89.6 % 47-70 [facility] WBC (Bld) [#/Vol] 4.8 10*3/uL 4.4-11.0 [facility] Determination of erythrocyte mean corpuscular volume (MCV)Ordered By: Harrison Roper on 12-29-2023 MCV (RBC) [Entitic vol] 109.0 fL 81-99 [facility] Erythrocyte distribution wid th ratioOrdered By: Harrison Roper on 12-29-2023 Erythrocyte distribution width (RBC) [Ratio] 13.1 % 11.6-14.6 [facility] Erythrocyte distribution wid th standard deviationOrdered By: Harrison Roper on 12-29-2023 Erythrocyte distribution width (RBC) [Entitic vol] 51.9 fL 35.1-43.9 [facility] Hematocrit Auto (Bld) [Volum e fraction]Ordered By: Harrison Roper on 12-29-2023 Hematocrit (Bld) [Volume fraction] 24.3 % 37-47 [facility] Immature granulocytes/100 WB C Auto (Bld)Ordered By: Harrison Roper on 12-29-2023 Immature granulocytes/100 WBC (Bld) 0.400 % 0.0-0.9 [facility] Comment on above: IG% - Immature Granu locytes (promyelocytes, myelocytes and metamyelocytes) > 1% indicates that a LEFT SHIFT is Present. Laboratory - Chemistry and C hemistry - challengeOrdered By: Harrison Roper on 12-29-2023 Magnesium [Mass/Vol] 2.1 mg/dL 1.6-2.6 [facility] Laboratory - Hematology and Cell countsOrdered By: Harrison Roper on 12-29-2023 MCH (RBC) [Entitic mass] 36.8 pg 27.0-32.0 [facility] MCHC (RBC) [Mass/Vol] 33.7 g/dL 32-36 [facility] Nucleated RBC/100 WBC (Bld) [Ratio] 0 % 0-5 [facility] Platelet mean volume (Bld) [Entitic vol] 9.8 fL 6.2-12.0 [facility] Platelets (Bld) [#/Vol] 73 10*3/uL 150-450 [facility] RBC Auto (Bld) [#/Vol]Ordere d By: Harrison Roper on 12-29-2023 RBC (Bld) [#/Vol] 2.23 10*6/uL 4.2-5.4 [facility] Basophil percentageOrdered B y: Dalton Dmitriy on 12-28-2023 Basophil percentage 3.2 mg/dL 2.5-4.9 [facility] Blood manual differential co mment interpretation (narrative result)Ordered By: Harrison Roper on 12-28-2023 Manual differential comment Emir (Bld) [Interp] SCANNED [facility] Blood platelet adequacy dete ction by light microscopyOrdered By: Harrison Roper on 12-28-2023 Platelets LM Ql (Bld) MOD DEC ADEQ [facility] Blood polychromasia detectio n by light microscopyOrdered By: Harrison Roper on 12-28-2023 Polychromasia LM Ql (Bld) 1+ [facility] Erythrocyte [place] bod y detectionOrdered By: Harrison Roper on 12-28-2023 [place] bodies LM Ql (Bld) RARE [facility] Laboratory - CoagulationOrde red By: Harrison Roper on 12-28-2023 INR Coag (Bld) [Relative time] 1.4 {INR} [facility] PT Coag (PPP) [Time] 16.9 s 11.7-14.9 [facility] Laboratory - Hematology and Cell countsOrdered By: Harrison Roper on 12-28-2023 Anisocytosis Ql (Bld) 2+ [facility] Macrocytes detectionOrdered By: Harrison Roper on 12-28-2023 Macrocytes Ql (Bld) 2+ [facility] Ovalocyte detectionOrdered B y: Harrison Roper on 12-28-2023 Ovalocytes LM Ql (Bld) RARE [facility] Review by pathologistOrdered By: Harrison Roper on 12-28-2023 Pathologist review Emir (Unsp spec) [Interp] Reviewed [facility] Comment on above: Previous reported re sult: Shira benton Edited by: FRAN on 12/28/23:1530Pancytopenia.LeukopeniaMacrocytic anemia.Moderate Thrombocytopenia.Clinical correlation necessary.Ari Anderson M.D. 12/28/23 AMENDED REPORT 12/28/23 1530 PATH REV previously reported as: Shira benton Absolute lymphocyte countOrd ered By: Yair Lazcano on 12-27-2023 Lymphocytes Auto (Unsp spec) [#/Vol] 1.61 10*3/uL 0.83-4.51 [facility] Activated partial thrombopla stin time (aPTT) in platelet poor plasma by coagulation aOrdered By: Yair Lazcano on 12-27-2023 aPTT Coag (PPP) [Time] 32.0 s 24.1-36.2 [facility] Automated lymphocyte count a s percentage of total leukocytesOrdered By: Yair Lazcano on 12-27-2023 Lymphocytes/100 WBC Auto (Unsp spec) 19.2 % 19-41 [facility] Basophil percentageOrdered B y: Harrison Roper on 12-27-2023 Basophil percentage 3.5 mg/dL 2.5-4.9 [facility] Basophil percentageOrdered B y: Yair Lazcano on 12-27-2023 Basophils/100 WBC (Bld) 0.2 % 0-1 [facility] Bilirubin [Mass/Vol] 7.40 mg/dL 0.20-1.00 [facility] Comment on above: For patients on eltr ombopag therapy, use of Dimension [place] TBIL is not recommended. Chloride [Moles/Vol] 100 mmol/L 98-107 [facility] Eosinophils/100 WBC (Bld) 0.4 % 0-5 [facility] Glucose [Mass/Vol] 99 mg/dL 74-106 [facility] Hemoglobin (Bld) [Mass/Vol] 10.1 g/dL 12.0-15.0 [facility] Monocytes/100 WBC (Bld) 6.7 % 0-10 [facility] Neutrophils (Bld) [#/Vol] 6.1 10*3/uL 2.0-7.7 [facility] Neutrophils/100 WBC (Bld) 73.0 % 47-70 [facility] Potassium [Moles/Vol] 3.2 mmol/L 3.5-5.1 [facility] Protein [Mass/Vol] 6.2 g/dL 6.4-8.2 [facility] Sodium [Moles/Vol] 138 mmol/L 136-145 [facility] WBC (Bld) [#/Vol] 8.4 10*3/uL 4.4-11.0 [facility] Basophil percentage 0-5 SEEN /hpf 0-5 [facility] Bilirubin Test strip Ql (U)O rdered By: Yair Lazcano on 12-27-2023 Bilirubin Ql (U) 1 mg/dL Negative [facility] Comment on above: COLOR OF URINE MAY A FFECT DIPSTICK RESULTS. Determination of erythrocyte mean corpuscular volume (MCV)Ordered By: Yair Lazcano on 12-27-2023 MCV (RBC) [Entitic vol] 106.8 fL 81-99 [facility] Direct bilirubinOrdered By: Yair Lazcano on 12-27-2023 Bilirubin.direct [Mass/Vol] 4.50 mg/dL 0.00-0.30 [facility] Erythrocyte distribution wid th ratioOrdered By: Yair Lazcano on 12-27-2023 Erythrocyte distribution width (RBC) [Ratio] 12.8 % 11.6-14.6 [facility] Erythrocyte distribution wid th standard deviationOrdered By: Yair Lazcano on 12-27-2023 Erythrocyte distribution width (RBC) [Entitic vol] 50.0 fL 35.1-43.9 [facility] Hematocrit Auto (Bld) [Volum e fraction]Ordered By: Yair Lazcano on 12-27-2023 Hematocrit (Bld) [Volume fraction] 29.7 % 37-47 [facility] Immature granulocytes/100 WB C Auto (Bld)Ordered By: Yair Lazcano on 12-27-2023 Immature granulocytes/100 WBC (Bld) 0.500 % 0.0-0.9 [facility] Comment on above: IG% - Immature Granu locytes (promyelocytes, myelocytes and metamyelocytes) > 1% indicates that a LEFT SHIFT is Present. Ketones Test strip Ql (U)Ord ered By: Yair Lazcano on 12-27-2023 Ketones Ql (U) 5 mg/dl Negative [facility] Laboratory - Chemistry and C hemistry - challengeOrdered By: Yair Lazcano on 12-27-2023 ALP [Catalytic activity/Vol] 218 U/L 45-117 [facility] ALT [Catalytic activity/Vol] 23 U/L 13-56 [facility] CO2 [Moles/Vol] 30.0 mmol/L 21.0-32.0 [facility] Globulin (S) [Mass/Vol] 3.6 g/dL 2.2-4.2 [facility] Lipase [Catalytic activity/Vol] 31 U/L 13-75 [facility] Comment on above: Please note:LIPASE r evised reference range effective 22. New Lipase methodology. Expected to produce lower values than the previous assay method. NEW Reference Range: 13 - 75 U/L Urea nitrogen/Creatinine [Mass ratio] 50.8 mg/mg 10-20 [facility] Laboratory - Chemistry and C hemistry - challengeOrdered By: Harrison Roper on 12-27-2023 Magnesium [Mass/Vol] 1.5 mg/dL 1.6-2.6 [facility] Laboratory - CoagulationOrde red By: Yair Lazcano on 12-27-2023 INR Coag (Bld) [Relative time] 1.3 {INR} [facility] PT Coag (PPP) [Time] 15.7 s 11.7-14.9 [facility] - Hematology and Cell countsOrdered By: Yair Lazcano on 12-27-2023 MCH (RBC) [Entitic mass] 36.3 pg 27.0-32.0 [facility] MCHC (RBC) [Mass/Vol] 34.0 g/dL 32-36 [facility] Nucleated RBC/100 WBC (Bld) [Ratio] 0 % 0-5 [facility] Platelet mean volume (Bld) [Entitic vol] 9.5 fL 6.2-12.0 [facility] Platelets (Bld) [#/Vol] 102 10*3/uL 150-450 [facility] Lower GI hemoglobin IA Ql (S tl)Ordered By: Yair Lazcano on 12-27-2023 Stool Occult Blood (KENDRA) Positive [facility] Mucus LM Ql (Urine sed)Order ed By: Yair Lazcano on 12-27-2023 Mucus Ql (Urine sed) 0 SEEN /hpf [facility] Nitrite Test strip Ql (U)Ord ered By: Yair Lazcano on 12-27-2023 Nitrite Ql (U) Negative Negative [facility] No Panel InformationOrdered By: Yair Lazcano on 12-27-2023 Estimated GFR (MDRD) Amer 104 mL/min >60 [facility] Comment on above: GFR Calc Estimated GFR (MDRD) Non-Af Amer 86 mL/min >60 [facility] Comment on above: Non- GFR Calc Urine RBC 0-5 SEEN /hpf 0-5 [facility] Protein Test strip Ql (U)Ord ered By: Yair Lazcano on 12-27-2023 Protein Ql (U) 15 mg/dl Negative [facility] RBC Auto (Bld) [#/Vol]Ordere d By: Yair Lazcano on 12-27-2023 RBC (Bld) [#/Vol] 2.78 10*6/uL 4.2-5.4 [facility] Serum or plasma calcium seth urement (mass/volume)Ordered By: Yair Lazcano on 12-27-2023 Calcium [Mass/Vol] 9.6 mg/dL 8.5-10.1 [facility] Serum or plasma creatinine m easurement (mass/volume)Ordered By: Yair Lazcano on 12-27-2023 Creatinine [Mass/Vol] 0.71 mg/dL 0.55-1.02 [facility] Comment on above: The validity of the calculated GFR & GFRAA in patients over 70 years has not been determined. Clinical correlation is essential. Serum or plasma urea nitroge n measurement (mass/volume)Ordered By: Yair Lazcano on 12-27-2023 Urea nitrogen [Mass/Vol] 36 mg/dL 7-18 [facility] Squamous epithelial cells de tection in urine sediment by light microscopyOrdered By: Yair Lazcano on 12-27-2023 Epithelial cells.squamous LM Ql (Urine sed) 0 SEEN /hpf 5-10 [facility] Thin prep Papanicolaou smear with manual screeningOrdered By: Yair Lazcano on 12-27-2023 Thin prep Papanicolaou smear with manual screening 2.6 g/dL 3.2-5.0 [facility] Thin prep Papanicolaou smear with manual screening 57 U/L 15-37 [facility] Thin prep Papanicolaou smear with manual screening 8 5-15 [facility] Urine blood detectionOrdered By: Yair Lazcano on 12-27-2023 RBC Ql (U) 10 /ul Negative [facility] Urine clarityOrdered By: Arun Lazcano on 12-27-2023 Clarity (U) Sl. Cloudy Clear [facility] Urine color determinationOrd ered By: Yair Lazcano on 12-27-2023 Color (U) Yellow Yellow [facility] Urine glucose detectionOrder ed By: Yair Lazcano on 12-27-2023 Glucose Ql (U) Normal mg/dl Normal [facility] Urine leukocyte esterase det ection by dipstickOrdered By: Yair Lazcano on 12-27-2023 Leukocyte esterase Test strip Ql (U) 25 /ul Negative [facility] Urine pHOrdered By: Yair villegas on 12-27-2023 pH (U) 7.0 [pH] 5.0 - 8.0 [facility] Urine sediment bacteria coun t by microscopy (number/high power field)Ordered By: Yair Lazcano on 12-27-2023 Bacteria LM.HPF (Urine sed) [#/Area] 0 /[HPF] None Seen [facility] Urine specific gravity measu rementOrdered By: Yair Lazcano on 12-27-2023 Specific gravity (U) [Rel density] 1.005 1.002-1.03 0 [facility] Urine urobilinogen measureme ntOrdered By: Yair Lazcano on 12-27-2023 Urobilinogen Ql (U) 4 mg/dl Normal [facility] Basophil percentageOrdered B y: Solo Constantinelawrence on 11-15-2023 Ammonia (P) [Moles/Vol] 38.0 umol/L 11- [facility] Basophil percentageOrdered B y: Khanh Rodriguez on 11-15-2023 Chloride [Moles/Vol] 101 mmol/L 98-107 [facility] Glucose [Mass/Vol] 97 mg/dL 74-106 [facility] Potassium [Moles/Vol] 4.1 mmol/L 3.5-5.1 [facility] Sodium [Moles/Vol] 134 mmol/L 136-145 [facility] Laboratory - Chemistry and C hemistry - challengeOrdered By: Khanh Rodriguez on 11-15-2023 CO2 [Moles/Vol] 25.0 mmol/L 21.0-32.0 [facility] Urea nitrogen/Creatinine [Mass ratio] 10.7 mg/mg 10-20 [facility] No Panel InformationOrdered By: Khanh Rodriguez on 11-15-2023 Estimated GFR (MDRD) Amer 136 mL/min >60 [facility] Comment on above: GFR Calc Estimated GFR (MDRD) Non-Af Amer 113 mL/min >60 [facility] Comment on above: Non- GFR Calc Vitamin D 25-Hydroxy 66.3 ng/mL [facility] Comment on above: Vitamin D 25(OH) Sta tus Range Deficiency <20 ng/mL (50nmol/L) Insufficiency 20 - 30 ng/mL (50 - 75 nmol/L) Sufficiency 30 - 100 ng/mL (75 - 250 nmol/L) Toxicity >100 ng/mL (>250 nmol/L) No Panel InformationOrdered By: Solo Calderón on 11-15-2023 Folate 1.60 ng/mL 3.1-55.4 [facility] Serum or plasma calcium seth urement (mass/volume)Ordered By: Khanh Rodriguez on 11-15-2023 Calcium [Mass/Vol] 9.2 mg/dL 8.5-10.1 [facility] Serum or plasma creatinine m easurement (mass/volume)Ordered By: Khanh Rodriguez on 11-15-2023 Creatinine [Mass/Vol] 0.56 mg/dL 0.55-1.02 [facility] Comment on above: The validity of the calculated GFR & GFRAA in patients over 70 years has not been determined. Clinical correlation is essential. Serum or plasma thiamine mitul surement (mass/volume)Ordered By: Solo Calderón on 11-15-2023 Thiamine [Mass/Vol] 69.8 nmol/L 66.5-200.0 [facility] Comment on above: Performed at: [facility] - [address] [id number] Director: Lesly Carty MD, Phone: [phone] Serum or plasma urea nitroge n measurement (mass/volume)Ordered By: Khanh Rodriguez on 11-15-2023 Urea nitrogen [Mass/Vol] 6 mg/dL 7-18 [facility] Thin prep Papanicolaou smear with manual screeningOrdered By: Khanh Rodriguez on 11-15-2023 Thin prep Papanicolaou smear with manual screening 8 5-15 [facility] Basophil percentageOrdered B y: Khanh Rodriguez on 11-03-2023 Chloride [Moles/Vol] 92 mmol/L 98-107 [facility] Glucose [Mass/Vol] 105 mg/dL 74-106 [facility] Comment on above: Fasting Glucose resu lt from 100 to 125 mg/dL suggests IMPAIRED HOMEOSTASIS per A.D.A. criteria. Potassium [Moles/Vol] 2.9 mmol/L 3.5-5.1 [facility] Sodium [Moles/Vol] 130 mmol/L 136-145 [facility] Laboratory - Chemistry and C hemistry - challengeOrdered By: Khanh Rodriguez on 11-03-2023 CO2 [Moles/Vol] 30.0 mmol/L 21.0-32.0 [facility] Natriuretic peptide B (Bld) [Mass/Vol] 494.5 pg/mL 0-100 [facility] Urea nitrogen/Creatinine [Mass ratio] 15.2 mg/mg 10-20 [facility] No Panel InformationOrdered By: Khanh Rodriguez on 11-03-2023 Estimated GFR (MDRD) Amer 114 mL/min >60 [facility] Comment on above: GFR Calc Estimated GFR (MDRD) Non-Af Amer 94 mL/min >60 [facility] Comment on above: Non- GFR Calc Serum or plasma calcium seth urement (mass/volume)Ordered By: Khanh Rodriguez on 11-03-2023 Calcium [Mass/Vol] 9.5 mg/dL 8.5-10.1 [facility] Serum or plasma creatinine m easurement (mass/volume)Ordered By: Khanh Rodriguez on 11-03-2023 Creatinine [Mass/Vol] 0.66 mg/dL 0.55-1.02 [facility] Comment on above: The validity of the calculated GFR & GFRAA in patients over 70 years has not been determined. Clinical correlation is essential. Serum or plasma urea nitroge n measurement (mass/volume)Ordered By: Khanh Rodriguez on 11-03-2023 Urea nitrogen [Mass/Vol] 10 mg/dL 7-18 [facility] Thin prep Papanicolaou smear with manual screeningOrdered By: Khanh Rodriguez on 11-03-2023 Thin prep Papanicolaou smear with manual screening 8 5-15 [facility] Basophil percentageOrdered B y: Shabbir Galaviz on 10-26-2023 Chloride [Moles/Vol] 87 mmol/L 98-107 [facility] Glucose [Mass/Vol] 124 mg/dL 74-106 [facility] Comment on above: Fasting Glucose resu lt from 100 to 125 mg/dL suggests IMPAIRED HOMEOSTASIS per A.D.A. criteria. Hemoglobin (Bld) [Mass/Vol] 11.6 g/dL 12.0-15.0 [facility] Potassium [Moles/Vol] 3.4 mmol/L 3.5-5.1 [facility] Comment on above: Moderate Hemolysis, Result may be falsely increased. Sodium [Moles/Vol] 125 mmol/L 136-145 [facility] WBC (Bld) [#/Vol] 5.2 10*3/uL 4.4-11.0 [facility] Determination of erythrocyte mean corpuscular volume (MCV)Ordered By: Shabbir Galaviz on 10-26-2023 MCV (RBC) [Entitic vol] 102.6 fL 81-99 [facility] Erythrocyte distribution wid th ratioOrdered By: Shabbir Galaviz on 10-26-2023 Erythrocyte distribution width (RBC) [Ratio] 15.9 % 11.6-14.6 [facility] Erythrocyte distribution wid th standard deviationOrdered By: Shabbir Galaviz on 10-26-2023 Erythrocyte distribution width (RBC) [Entitic vol] 58.5 fL 35.1-43.9 [facility] Hematocrit Auto (Bld) [Volum e fraction]Ordered By: Shabbir Galaviz on 10-26-2023 Hematocrit (Bld) [Volume fraction] 31.1 % 37-47 [facility] Laboratory - Chemistry and C hemistry - challengeOrdered By: Shabbir Galaviz on 10-26-2023 CO2 [Moles/Vol] 30.0 mmol/L 21.0-32.0 [facility] Urea nitrogen/Creatinine [Mass ratio] 9.0 mg/mg 10-20 [facility] Laboratory - Hematology and Cell countsOrdered By: Shabbir Galaviz on 10-26-2023 MCH (RBC) [Entitic mass] 38.3 pg 27.0-32.0 [facility] MCHC (RBC) [Mass/Vol] 37.3 g/dL 32-36 [facility] Platelet mean volume (Bld) [Entitic vol] 9.3 fL 6.2-12.0 [facility] Platelets (Bld) [#/Vol] 121 10*3/uL 150-450 [facility] No Panel InformationOrdered By: Shabbir Galaviz on 10-26-2023 Estimated Creatinine Clearance Calc 58.50 ml/min [facility] Estimated GFR (MDRD) Amer 111 mL/min >60 [facility] Comment on above: GFR Calc Estimated GFR (MDRD) Non-Af Amer 92 mL/min >60 [facility] Comment on above: Non- GFR Calc RBC Auto (Bld) [#/Vol]Ordere d By: Shabbir Galaviz on 10-26-2023 RBC (Bld) [#/Vol] 3.03 10*6/uL 4.2-5.4 [facility] Serum or plasma calcium seth urement (mass/volume)Ordered By: Shabbir Galaviz on 10-26-2023 Calcium [Mass/Vol] 8.9 mg/dL 8.5-10.1 [facility] Serum or plasma creatinine m easurement (mass/volume)Ordered By: Shabbir Galaviz on 10-26-2023 Creatinine [Mass/Vol] 0.67 mg/dL 0.55-1.02 [facility] Comment on above: The validity of the calculated GFR & GFRAA in patients over 70 years has not been determined. Clinical correlation is essential. Serum or plasma urea nitroge n measurement (mass/volume)Ordered By: Shabbir Galaviz on 10-26-2023 Urea nitrogen [Mass/Vol] 6 mg/dL 7-18 [facility] Thin prep Papanicolaou smear with manual screeningOrdered By: Shabbir Galaviz on 10-26-2023 Thin prep Papanicolaou smear with manual screening 8 5-15 [facility] Anaerobic cultureOrdered By: Mariela Martines on 08-16-2023 Bacteria identified Anaer cx Nom (Unsp spec) No growth in 5 days. [facility] Bacteria identified Anaer cx Nom (Unsp spec) No growth in 5 days. [facility] Bacteria identified Cx Nom ( Wound)Ordered By: Mariela Martines on 08-16-2023 Wound Culture Acinetobacter baumannii [facility] Wound Culture Acinetobacter baumannii [facility] Gram stain for investigation of transfusion reactionOrdered By: Mariela Martines on 08-16-2023 Microscopic observation Gram stain Nom (Unsp spec) [facility] Microscopic observation Gram stain Nom (Unsp spec) [facility] No Panel InformationOrdered By: Nabeel Patel on 07-10-2023 Miscellaneous Test Comment MAILED SPECIMEN [facility] Basophil percentageOrdered B y: Uday Brooks on 06-08-2023 Bilirubin [Mass/Vol] 1.70 mg/dL 0.20-1.00 [facility] Comment on above: For patients on eltr ombopag therapy, use of Dimension [place] TBIL is not recommended. Chloride [Moles/Vol] 98 mmol/L 98-107 [facility] Glucose [Mass/Vol] 111 mg/dL 74-106 [facility] Comment on above: Fasting Glucose resu lt from 100 to 125 mg/dL suggests IMPAIRED HOMEOSTASIS per A.D.A. criteria. Potassium [Moles/Vol] 3.8 mmol/L 3.5-5.1 [facility] Protein [Mass/Vol] 6.8 g/dL 6.4-8.2 [facility] Sodium [Moles/Vol] 132 mmol/L 136-145 [facility] WBC (Bld) [#/Vol] 5.1 10*3/uL 4.4-11.0 [facility] Blood erythrocytes count (nu mber/volume)Ordered By: Uday Brooks on 06-08-2023 RBC (Bld) [#/Vol] 3.40 10*6/uL 4.2-5.4 [facility] Blood hemoglobin measurement (mass/volume)Ordered By: Uday Brooks on 06-08-2023 Hemoglobin (Bld) [Mass/Vol] 12.2 g/dL 12.0-15.0 [facility] Blood platelet mean volumeOr dered By: Uday Brooks on 06-08-2023 Platelet mean volume (Bld) [Entitic vol] 8.8 fL 6.2-12.0 [facility] Determination of erythrocyte mean corpuscular volume (MCV)Ordered By: Uday Brooks on 06-08-2023 MCV (RBC) [Entitic vol] 100.9 fL 81-99 [facility] Hematocrit Auto (Bld) [Volum e fraction]Ordered By: Uday Brooks on 06-08-2023 Hematocrit (Bld) [Volume fraction] 34.3 % 37-47 [facility] INR in Blood by Coagulation assayOrdered By: Uday Brooks on 06-08-2023 INR Coag (Bld) [Relative time] 1.2 {INR} [facility] Laboratory - Chemistry and C hemistry - challengeOrdered By: Uday Brooks on 06-08-2023 ALP [Catalytic activity/Vol] 170 U/L 45-117 [facility] ALT [Catalytic activity/Vol] 20 U/L 13-56 [facility] CO2 [Moles/Vol] 30.0 mmol/L 21.0-32.0 [facility] Globulin (S) [Mass/Vol] 3.9 g/dL 2.2-4.2 [facility] Urea nitrogen/Creatinine [Mass ratio] 15.6 mg/mg 10-20 [facility] Laboratory - CoagulationOrde red By: Uday Brooks on 06-08-2023 aPTT Coag (Bld) [Time] 33.6 s 24.1-36.2 [facility] PT Coag (PPP) [Time] 15.0 s 11.7-14.9 [facility] - Hematology and Cell countsOrdered By: Uday Brooks on 06-08-2023 Erythrocyte distribution width (RBC) [Entitic vol] 47.0 fL 35.1-43.9 [facility] Erythrocyte distribution width (RBC) [Ratio] 12.6 % 11.6-14.6 [facility] MCH (RBC) [Entitic mass] 35.9 pg 27.0-32.0 [facility] MCHC Auto (RBC) [Mass/Vol]Or dered By: Uday Brooks on 06-08-2023 MCHC (RBC) [Mass/Vol] 35.6 g/dL 32-36 [facility] No Panel InformationOrdered By: Uday Brooks on 06-08-2023 Estimated GFR (MDRD) Amer 118 mL/min >60 [facility] Comment on above: GFR Calc Estimated GFR (MDRD) Non-Af Amer 97 mL/min >60 [facility] Comment on above: Non- GFR Calc Platelets bldOrdered By: Anton Brooks on 06-08-2023 Platelets (Bld) [#/Vol] 109 10*3/uL 150-450 [facility] Serum or plasma albumin seth urement (mass/volume)Ordered By: Uday Brooks on 06-08-2023 Albumin [Mass/Vol] 2.9 g/dL 3.2-5.0 [facility] Serum or plasma albumin/glob ulin mass ratioOrdered By: Uday Brooks on 06-08-2023 Albumin/Globulin [Mass ratio] 0.7 {ratio} 0.9-2.4 [facility] Serum or plasma calcium seth urement (mass/volume)Ordered By: Uday Brooks on 06-08-2023 Calcium [Mass/Vol] 9.1 mg/dL 8.5-10.1 [facility] Serum or plasma creatinine m easurement (mass/volume)Ordered By: Uday Brooks on 06-08-2023 Creatinine [Mass/Vol] 0.64 mg/dL 0.55-1.02 [facility] Comment on above: The validity of the calculated GFR & GFRAA in patients over 70 years has not been determined. Clinical correlation is essential. Serum or plasma urea nitroge n measurement (mass/volume)Ordered By: Uday Brooks on 06-08-2023 Urea nitrogen [Mass/Vol] 10 mg/dL 7-18 [facility] Thin prep Papanicolaou smear with manual screeningOrdered By: Uday Brooks on 06-08-2023 Thin prep Papanicolaou smear with manual screening 35 U/L 15-37 [facility] Thin prep Papanicolaou smear with manual screening 4 5-15 [facility] Anaerobic cultureOrdered By: Mariela Martines on 05-23-2023 Bacteria identified Anaer cx Nom (Unsp spec) No anaerobic bacteria isolated. [facility] Bacteria identified Cx Nom ( Wound)Ordered By: Mariela Martines on 05-23-2023 Wound Culture Staphylococcus aureus [facility] Wound Culture Staphylococcus epidermidis [facility] Gram stain for investigation of transfusion reactionOrdered By: Mariela Martines on 05-23-2023 Microscopic observation Gram stain Nom (Unsp spec) [facility] Basophil percentageOrdered B y: Khanh Rodriguez on 05-03-2023 Ammonia (P) [Moles/Vol] 50.0 umol/L 11-32 [facility] Bilirubin [Mass/Vol] 2.60 mg/dL 0.20-1.00 [facility] Comment on above: For patients on eltr ombopag therapy, use of Dim[employer] [place] TBIL is not recommended. Chloride [Moles/Vol] 100 mmol/L 98-107 [facility] Glucose [Mass/Vol] 101 mg/dL 74-106 [facility] Comment on above: Fasting Glucose resu lt from 100 to 125 mg/dL suggests IMPAIRED HOMEOSTASIS per A.D.A. criteria. Potassium [Moles/Vol] 4.4 mmol/L 3.5-5.1 [facility] Protein [Mass/Vol] 7.0 g/dL 6.4-8.2 [facility] Sodium [Moles/Vol] 133 mmol/L 136-145 [facility] Laboratory - Chemistry and C hemistry - challengeOrdered By: Khanh Rodriguez on 05-03-2023 ALP [Catalytic activity/Vol] 299 U/L 45-117 [facility] ALT [Catalytic activity/Vol] 30 U/L 13-56 [facility] Amylase [Catalytic activity/Vol] 1353 U/L 5-55 [facility] CO2 [Moles/Vol] 27.0 mmol/L 21.0-32.0 [facility] Globulin (S) [Mass/Vol] 4.1 g/dL 2.2-4.2 [facility] Urea nitrogen/Creatinine [Mass ratio] 13.8 mg/mg 10-20 [facility] No Panel InformationOrdered By: Khanh Rodriguez on 05-03-2023 Estimated GFR (MDRD) Amer 115 mL/min >60 [facility] Comment on above: GFR Calc Estimated GFR (MDRD) Non-Af Amer 95 mL/min >60 [facility] Comment on above: Non- GFR Calc Serum or plasma albumin seth urement (mass/volume)Ordered By: Khanh Rodriguez on 05-03-2023 Albumin [Mass/Vol] 2.9 g/dL 3.2-5.0 [facility] Serum or plasma albumin/glob ulin mass ratioOrdered By: Khanh Rodriguez on 05-03-2023 Albumin/Globulin [Mass ratio] 0.7 {ratio} 0.9-2.4 [facility] Serum or plasma calcium seth urement (mass/volume)Ordered By: Khanh Rodriguez on 05-03-2023 Calcium [Mass/Vol] 9.2 mg/dL 8.5-10.1 [facility] Serum or plasma creatinine m easurement (mass/volume)Ordered By: Khanh Rodriguez on 05-03-2023 Creatinine [Mass/Vol] 0.65 mg/dL 0.55-1.02 [facility] Comment on above: The validity of the calculated GFR & GFRAA in patients over 70 years has not been determined. Clinical correlation is essential. Serum or plasma urea nitroge n measurement (mass/volume)Ordered By: Khanh Rodriguez on 05-03-2023 Urea nitrogen [Mass/Vol] 9 mg/dL 7-18 [facility] Thin prep Papanicolaou smear with manual screeningOrdered By: Khanh Rodriguez on 05-03-2023 Thin prep Papanicolaou smear with manual screening 70 U/L 15-37 [facility] Thin prep Papanicolaou smear with manual screening 6 5-15 [facility] Absolute lymphocyte countOrd ered By: Sukhdevvalerioeligiofortino Changyamilexgloria on 04-26-2023 Lymphocytes Auto (Unsp spec) [#/Vol] 1.05 10*3/uL 0.83-4.51 [facility] Basophil percentageOrdered B y: Norbertofortino Changyamilexgloria on 04-26-2023 Basophils/100 WBC (Bld) 0.8 % 0-1 [facility] Bilirubin [Mass/Vol] 3.10 mg/dL 0.20-1.00 [facility] Comment on above: For patients on eltr ombopag therapy, use of [employer] [place] TBIL is not recommended. Chloride [Moles/Vol] 96 mmol/L 98-107 [facility] Eosinophils/100 WBC (Bld) 0.8 % 0-5 [facility] Glucose [Mass/Vol] 107 mg/dL 74-106 [facility] Comment on above: Fasting Glucose resu lt from 100 to 125 mg/dL suggests IMPAIRED HOMEOSTASIS per A.D.A. criteria. Neutrophils (Bld) [#/Vol] 3.4 10*3/uL 2.0-7.7 [facility] Neutrophils/100 WBC (Bld) 68.5 % 47-70 [facility] Potassium [Moles/Vol] 3.9 mmol/L 3.5-5.1 [facility] Protein [Mass/Vol] 6.9 g/dL 6.4-8.2 [facility] Sodium [Moles/Vol] 131 mmol/L 136-145 [facility] WBC (Bld) [#/Vol] 5.0 10*3/uL 4.4-11.0 [facility] Blood erythrocytes count (nu mber/volume)Ordered By: Khanh Rodriguez on 04-26-2023 RBC (Bld) [#/Vol] 3.32 10*6/uL 4.2-5.4 [facility] Blood hemoglobin measurement (mass/volume)Ordered By: Khanh Rodriguez on 04-26-2023 Hemoglobin (Bld) [Mass/Vol] 12.0 g/dL 12.0-15.0 [facility] Blood lymphocytes/100 leukoc ytesOrdered By: Khanh Rodriguez on 04-26-2023 Lymphocytes/100 WBC (Bld) 21.2 % 19-41 [facility] Blood monocytes/100 leukocyt esOrdered By: Khanh Rodriguez on 04-26-2023 Monocytes/100 WBC (Bld) 8.3 % 0-10 [facility] Blood platelet mean volumeOr dered By: Khanh Rodriguez on 04-26-2023 Platelet mean volume (Bld) [Entitic vol] 8.9 fL 6.2-12.0 [facility] Determination of erythrocyte mean corpuscular volume (MCV)Ordered By: Khanh Rodriguez on 04-26-2023 MCV (RBC) [Entitic vol] 103.6 fL 81-99 [facility] Hematocrit Auto (Bld) [Volum e fraction]Ordered By: Khanh Rodriguez on 04-26-2023 Hematocrit (Bld) [Volume fraction] 34.4 % 37-47 [facility] Laboratory - Chemistry and C hemistry - challengeOrdered By: Khanh Rodriguez on 04-26-2023 ALP [Catalytic activity/Vol] 258 U/L 45-117 [facility] ALT [Catalytic activity/Vol] 24 U/L 13-56 [facility] CO2 [Moles/Vol] 28.0 mmol/L 21.0-32.0 [facility] Globulin (S) [Mass/Vol] 4.0 g/dL 2.2-4.2 [facility] Urea nitrogen/Creatinine [Mass ratio] 12.9 mg/mg 10-20 [facility] - Hematology and Cell countsOrdered By: Khanh Rodriguez on 04-26-2023 Erythrocyte distribution width (RBC) [Entitic vol] 51.7 fL 35.1-43.9 [facility] Erythrocyte distribution width (RBC) [Ratio] 13.5 % 11.6-14.6 [facility] Immature granulocytes/100 WBC (Bld) 0.400 % 0.0-0.9 [facility] Comment on above: IG% - Immature Granu locytes (promyelocytes, myelocytes and metamyelocytes) > 1% indicates that a LEFT SHIFT is Present. MCH (RBC) [Entitic mass] 36.1 pg 27.0-32.0 [facility] Nucleated RBC/100 WBC (Bld) [Ratio] 0 % 0-5 [facility] MCHC Auto (RBC) [Mass/Vol]Or dered By: Khanh Rodriguez on 04-26-2023 MCHC (RBC) [Mass/Vol] 34.9 g/dL 32-36 [facility] No Panel InformationOrdered By: Khanh Rodriguez on 04-26-2023 Estimated GFR (MDRD) Amer 122 mL/min >60 [facility] Comment on above: GFR Calc Estimated GFR (MDRD) Non-Af Amer 101 mL/min >60 [facility] Comment on above: Non- GFR Calc Platelets bldOrdered By: Francisco Rodriguez on 04-26-2023 Platelets (Bld) [#/Vol] 141 10*3/uL 150-450 [facility] Serum or plasma albumin seth urement (mass/volume)Ordered By: Khanh Rodriguez on 04-26-2023 Albumin [Mass/Vol] 2.9 g/dL 3.2-5.0 [facility] Serum or plasma albumin/glob ulin mass ratioOrdered By: Khanh Rodriguez on 04-26-2023 Albumin/Globulin [Mass ratio] 0.7 {ratio} 0.9-2.4 [facility] Serum or plasma calcium seth urement (mass/volume)Ordered By: Khanh Rodriguez on 04-26-2023 Calcium [Mass/Vol] 9.3 mg/dL 8.5-10.1 [facility] Serum or plasma creatinine m easurement (mass/volume)Ordered By: Khanh Rodriguez on 04-26-2023 Creatinine [Mass/Vol] 0.62 mg/dL 0.55-1.02 [facility] Comment on above: The validity of the calculated GFR & GFRAA in patients over 70 years has not been determined. Clinical correlation is essential. Serum or plasma urea nitroge n measurement (mass/volume)Ordered By: Khanh Rodriguez on 04-26-2023 Urea nitrogen [Mass/Vol] 8 mg/dL 7-18 [facility] Thin prep Papanicolaou smear with manual screeningOrdered By: Khanh Rodriguez on 04-26-2023 Thin prep Papanicolaou smear with manual screening 74 U/L 15-37 [facility] Thin prep Papanicolaou smear with manual screening 7 5-15 [facility] Anaerobic cultureOrdered By: Mariela Martines on 02-23-2023 Bacteria identified Anaer cx Nom (Unsp spec) No anaerobic bacteria isolated. [facility] Bacteria identified Cx Nom ( Wound)Ordered By: Mariela Martines on 02-23-2023 Wound Culture Staphylococcus epidermidis [facility] Gram stain for investigation of transfusion reactionOrdered By: Mariela Martines on 02-23-2023 Microscopic observation Gram stain Nom (Unsp spec) [facility] Anaerobic cultureOrdered By: Mariela Martines on 01-29-2023 Bacteria identified Anaer cx Nom (Unsp spec) No anaerobic bacteria isolated. [facility] Bacteria identified Cx Nom ( Wound)Ordered By: Mariela Martines on 01-28-2023 Wound Culture Pseudomonas aeruginosa [facility] Wound Culture Staphylococcus pseudintermediu [facility] Anaerobic cultureOrdered By: Mariela Martines on 01-25-2023 Bacteria identified Anaer cx Nom (Unsp spec) No anaerobic bacteria isolated. [facility] Bacteria identified Cx Nom ( Wound)Ordered By: Mariela Martines on 01-25-2023 Wound Culture Pseudomonas aeruginosa [facility] Wound Culture Staphylococcus pseudintermediu [facility] Gram stain for investigation of transfusion reactionOrdered By: Mariela Martines on 01-25-2023 Microscopic observation Gram stain Nom (Unsp spec) [facility] Absolute lymphocyte countOrd ered By: Dr. Rodriguez on 01-20-2023 Lymphocytes Auto (Unsp spec) [#/Vol] 1.02 10*3/uL 0.83-4.51 [facility] Basophil percentageOrdered B y: Dr. Rodriguez on 01-20-2023 Basophils/100 WBC (Bld) 1.0 % 0-1 [facility] Bilirubin [Mass/Vol] 2.80 mg/dL 0.20-1.00 [facility] Comment on above: For patients on eltr ombopag therapy, use of [employer] [place] TBIL is not recommended. Chloride [Moles/Vol] 81 mmol/L 98-107 [facility] Cholesterol [Mass/Vol] 191 mg/dL <200 [facility] Comment on above: <200 mg/dL Desirable 200-240 mg/dL Borderline >240 mg/dL High Risk Eosinophils/100 WBC (Bld) 1.4 % 0-5 [facility] Glucose [Mass/Vol] 114 mg/dL 74-106 [facility] Comment on above: Fasting Glucose resu lt from 100 to 125 mg/dL suggests IMPAIRED HOMEOSTASIS per A.D.A. criteria. Neutrophils (Bld) [#/Vol] 3.3 10*3/uL 2.0-7.7 [facility] Neutrophils/100 WBC (Bld) 64.6 % 47-70 [facility] Potassium [Moles/Vol] 2.7 mmol/L 3.5-5.1 [facility] Comment on above: Critical Result(s) C alled at: 13:29:15 01/20/2023 by: Bebo Bolivar. Estevan Olivarez RN (KITT[place]AS). Results read back by same. Protein [Mass/Vol] 7.3 g/dL 6.4-8.2 [facility] Sodium [Moles/Vol] 125 mmol/L 136-145 [facility] Triglyceride [Mass/Vol] 70 mg/dL <199 [facility] Comment on above: The drugs N-Acetylcy steine and Metamizole may falsely depress this assay.Serum Triglycerides Reference Interval Normal <150 mg/dL Borderline high 150 - 199 mg/dL High 200 - 499 mg/dL Very High > or = 500 mg/dL WBC (Bld) [#/Vol] 5.1 10*3/uL 4.4-11.0 [facility] Blood erythrocytes count (nu mber/volume)Ordered By: Dr. Rodriguez on 01-20-2023 RBC (Bld) [#/Vol] 3.14 10*6/uL 4.2-5.4 [facility] Blood hemoglobin measurement (mass/volume)Ordered By: Dr. Rodriguez on 01-20-2023 Hemoglobin (Bld) [Mass/Vol] 11.6 g/dL 12.0-15.0 [facility] Blood lymphocytes/100 leukoc ytesOrdered By: Dr. Rodriguez on 01-20-2023 Lymphocytes/100 WBC (Bld) 19.9 % 19-41 [facility] Blood monocytes/100 leukocyt esOrdered By: Dr. Rodriguez on 01-20-2023 Monocytes/100 WBC (Bld) 12.7 % 0-10 [facility] Blood platelet mean volumeOr dered By: Dr. Rodriguez on 01-20-2023 Platelet mean volume (Bld) [Entitic vol] 9.7 fL 6.2-12.0 [facility] Determination of erythrocyte mean corpuscular volume (MCV)Ordered By: Dr. Rodriguez on 01-20-2023 MCV (RBC) [Entitic vol] 101.3 fL 81-99 [facility] Hematocrit Auto (Bld) [Volum e fraction]Ordered By: Dr. Rodriguez on 01-20-2023 Hematocrit (Bld) [Volume fraction] 31.8 % 37-47 [facility] Laboratory - Chemistry and C hemistry - challengeOrdered By: Dr. Rodriguez on 01-20-2023 ALP [Catalytic activity/Vol] 203 U/L 45-117 [facility] ALT [Catalytic activity/Vol] 26 U/L 13-56 [facility] CO2 [Moles/Vol] 33.0 mmol/L 21.0-32.0 [facility] Free T4 [Mass/Vol] 1.45 ng/dL 0.76-1.46 [facility] Globulin (S) [Mass/Vol] 4.1 g/dL 2.2-4.2 [facility] Urea nitrogen/Creatinine [Mass ratio] 17.1 mg/mg 10-20 [facility] - Hematology and Cell countsOrdered By: Dr. Rodriguez on 01-20-2023 Erythrocyte distribution width (RBC) [Entitic vol] 58.4 fL 35.1-43.9 [facility] Erythrocyte distribution width (RBC) [Ratio] 15.9 % 11.6-14.6 [facility] Immature granulocytes/100 WBC (Bld) 0.400 % 0.0-0.9 [facility] Comment on above: IG% - Immature Granu locytes (promyelocytes, myelocytes and metamyelocytes) > 1% indicates that a LEFT SHIFT is Present. MCH (RBC) [Entitic mass] 36.9 pg 27.0-32.0 [facility] Nucleated RBC/100 WBC (Bld) [Ratio] 0 % 0-5 [facility] MCHC Auto (RBC) [Mass/Vol]Or dered By: Dr. Rodriguez on 01-20-2023 MCHC (RBC) [Mass/Vol] 36.5 g/dL 32-36 [facility] No Panel InformationOrdered By: Dr. Rodriguez on 01-20-2023 Estimated GFR (MDRD) Amer 168 mL/min >60 [facility] Comment on above: GFR Calc Estimated GFR (MDRD) Non-Af Amer 139 mL/min >60 [facility] Comment on above: Non- GFR Calc Thyroid Stimulating Hormone (TSH) 0.99 uIU/mL 0.358-3.74 [facility] Platelets bldOrdered By: Dr. Rodriguez on 01-20-2023 Platelets (Bld) [#/Vol] 114 10*3/uL 150-450 [facility] Serum or plasma albumin seth urement (mass/volume)Ordered By: Dr. Rodriguez on 01-20-2023 Albumin [Mass/Vol] 3.2 g/dL 3.2-5.0 [facility] Serum or plasma albumin/glob ulin mass ratioOrdered By: Dr. Rodriguez on 01-20-2023 Albumin/Globulin [Mass ratio] 0.8 {ratio} 0.9-2.4 [facility] Serum or plasma calcium seth urement (mass/volume)Ordered By: Dr. Rodriguez on 01-20-2023 Calcium [Mass/Vol] 9.2 mg/dL 8.5-10.1 [facility] Serum or plasma cholesterol in HDL measurement (mass/volume)Ordered By: Dr. Rodriguez on 01-20-2023 Cholesterol in HDL [Mass/Vol] 119 mg/dL >40 [facility] Comment on above: The drugs N-Acetylcy steine and Metamizole may falsely depress this assay. Reference Range HDL <40 mg/dL Low HDL Cholesterol HDL >or= 60 mg/dL High HDL Cholesterol Serum or plasma cholesterol in VLDL measurement (mass/volume)Ordered By: Dr. Rodriguez on 01-20-2023 Cholesterol in VLDL [Mass/Vol] 14 mg/dL 5-40 [facility] Serum or plasma creatinine m easurement (mass/volume)Ordered By: Dr. Rodriguez on 01-20-2023 Creatinine [Mass/Vol] 0.47 mg/dL 0.55-1.02 [facility] Comment on above: The validity of the calculated GFR & GFRAA in patients over 70 years has not been determined. Clinical correlation is essential. Serum or plasma low density lipoprotein (LDL) cholesterol measurement (mass/volume)Ordered By: Dr. Rodriguez on 01-20-2023 Cholesterol in LDL [Mass/Vol] 58 mg/dL 0-130 [facility] Serum or plasma urea nitroge n measurement (mass/volume)Ordered By: Dr. Rodriguez on 01-20-2023 Urea nitrogen [Mass/Vol] 8 mg/dL 7-18 [facility] Thin prep Papanicolaou smear with manual screeningOrdered By: Dr. Rodriguez on 01-20-2023 Thin prep Papanicolaou smear with manual screening 79 U/L 15-37 [facility] Thin prep Papanicolaou smear with manual screening 11 5-15 [facility] Basophil percentageon 2021 Chloride [Moles/Vol] 93 mmol/L 98-107 [facility] Work Phone: Glucose [Mass/Vol] 86 mg/dL 74-106 [facility] Work Phone: Potassium [Moles/Vol] 3.7 mmol/L 3.5-5.1 [facility] Work Phone: Sodium [Moles/Vol] 131 mmol/L 136-145 [facility] Work Phone: Laboratory - Chemistry and C hemistry - challengeon 05-31-2022 CO2 [Moles/Vol] 28.0 mmol/L 21.0-32.0 [facility] Work Phone: Urea nitrogen/Creatinine [Mass ratio] 13.2 mg/mg 10-20 [facility] Work Phone: No Panel Informationon 05-31 Estimated GFR (MDRD) Amer 147 mL/min >60 [facility] Work Phone: Comment on above: GFR Calc Estimated GFR (MDRD) Non-Af Amer 121 mL/min >60 [facility] Work Phone: Comment on above: Non- GFR Calc Serum or plasma calcium seth urement (mass/volume)on 05-31-2022 Calcium [Mass/Vol] 9.4 mg/dL 8.5-10.1 [facility] Work Phone: Serum or plasma creatinine m easurement (mass/volume)on 05-31-2022 Creatinine [Mass/Vol] 0.53 mg/dL 0.55-1.02 [facility] Work Phone: Comment on above: The validity of the calculated GFR & GFRAA in patients over 70 years has not been determined. Clinical correlation is essential. Serum or plasma urea nitroge n measurement (mass/volume)on 05-31-2022 Urea nitrogen [Mass/Vol] 7 mg/dL 7-18 [facility] Work Phone: Thin prep Papanicolaou smear with manual screeningon 05-31-2022 Thin prep Papanicolaou smear with manual screening 10 5-15 [facility] Work Phone: Basophil percentageon 2021 Bilirubin [Mass/Vol] 1.70 mg/dL 0.20-1.00 [facility] Work Phone: Comment on above: For patients on eltr ombopag therapy, use of Dimension [place] TBIL is not recommended. Chloride [Moles/Vol] 93 mmol/L 98-107 [facility] Work Phone: Glucose [Mass/Vol] 133 mg/dL 74-106 [facility] Work Phone: Comment on above: Fasting Glucose resu lt greater than or equal to 126 mg/dL suggests DIABETES MELLITUS per A.D.A. criteria. Potassium [Moles/Vol] 3.4 mmol/L 3.5-5.1 [facility] Work Phone: Protein [Mass/Vol] 7.5 g/dL 6.4-8.2 [facility] Work Phone: Sodium [Moles/Vol] 129 mmol/L 136-145 [facility] Work Phone: Laboratory - Chemistry and C hemistry - challengeon 04-11-2022 ALP [Catalytic activity/Vol] 186 U/L 45-117 [facility] Work Phone: ALT [Catalytic activity/Vol] 56 U/L 13-56 [facility] Work Phone: CO2 [Moles/Vol] 30.0 mmol/L 21.0-32.0 [facility] Work Phone: Globulin (S) [Mass/Vol] 4.0 g/dL 2.2-4.2 [facility] Work Phone: Urea nitrogen/Creatinine [Mass ratio] 20.0 mg/mg 10-20 [facility] Work Phone: No Panel Informationon 04-11 Estimated GFR (MDRD) Amer 127 mL/min >60 [facility] Work Phone: Comment on above: GFR Calc Estimated GFR (MDRD) Non-Af Amer 105 mL/min >60 [facility] Work Phone: Comment on above: Non- GFR Calc Vitamin D 25-Hydroxy 59.9 ng/mL [facility] Work Phone: Comment on above: Vitamin D 25(OH) Sta tus Range Deficiency <20 ng/mL (50nmol/L) Insufficiency 20 - 30 ng/mL (50 - 75 nmol/L) Sufficiency 30 - 100 ng/mL (75 - 250 nmol/L) Toxicity >100 ng/mL (>250 nmol/L) Serum or plasma albumin seth urement (mass/volume)on 04-11-2022 Albumin [Mass/Vol] 3.5 g/dL 3.2-5.0 [facility] Work Phone: Serum or plasma albumin/glob ulin mass ratioon 04-11-2022 Albumin/Globulin [Mass ratio] 0.9 {ratio} 0.9-2.4 [facility] Work Phone: Serum or plasma calcium seth urement (mass/volume)on 04-11-2022 Calcium [Mass/Vol] 9.1 mg/dL 8.5-10.1 [facility] Work Phone: Serum or plasma creatinine m easurement (mass/volume)on 04-11-2022 Creatinine [Mass/Vol] 0.60 mg/dL 0.55-1.02 [facility] Work Phone: Comment on above: The validity of the calculated GFR & GFRAA in patients over 70 years has not been determined. Clinical correlation is essential. Serum or plasma urea nitroge n measurement (mass/volume)on 04-11-2022 Urea nitrogen [Mass/Vol] 12 mg/dL 7-18 [facility] Work Phone: Thin prep Papanicolaou smear with manual screeningon 04-11-2022 Thin prep Papanicolaou smear with manual screening 131 U/L 15-37 [facility] Work Phone: Thin prep Papanicolaou smear with manual screening 6 5-15 [facility] Work Phone: [phone] Absolute lymphocyte counton 03-25-2022 Lymphocytes Auto (Unsp spec) [#/Vol] 1.37 10*3/uL 0.83-4.51 [facility] Work Phone: Basophil percentageon 2021 Basophils/100 WBC (Bld) 1.1 % 0-1 [facility] Work Phone: [phone] Bilirubin [Mass/Vol] 1.50 mg/dL 0.20-1.00 [facility] Work Phone: Comment on above: For patients on eltr ombopag therapy, use of [place] TBIL is not recommended. Chloride [Moles/Vol] 88 mmol/L 98-107 [facility] Work Phone: [phone] Eosinophils/100 WBC (Bld) 2.5 % 0-5 [facility] Work Phone: [phone] Glucose [Mass/Vol] 105 mg/dL 74-106 [facility] Work Phone: Comment on above: Fasting Glucose resu lt from 100 to 125 mg/dL suggests IMPAIRED HOMEOSTASIS per A.D.A. criteria. Neutrophils (Bld) [#/Vol] 3.0 10*3/uL 2.0-7.7 [facility] Work Phone: [phone] Neutrophils/100 WBC (Bld) 56.5 % 47-70 [facility] Work Phone: [phone] Potassium [Moles/Vol] 3.7 mmol/L 3.5-5.1 [facility] Work Phone: [phone] Protein [Mass/Vol] 8.0 g/dL 6.4-8.2 [facility] Work Phone: Sodium [Moles/Vol] 129 mmol/L 136-145 [facility] Work Phone: WBC (Bld) [#/Vol] 5.2 10*3/uL 4.4-11.0 [facility] Work Phone: Blood erythrocytes count (nu mber/volume)on 03-25-2022 RBC (Bld) [#/Vol] 4.46 10*6/uL 4.2-5.4 [facility] Blood hemoglobin measurement (mass/volume)on 03-25-2022 Hemoglobin (Bld) [Mass/Vol] 12.7 g/dL 12.0-15.0 [facility] Work Phone: Blood lymphocytes/100 leukoc yteson 03-25-2022 Lymphocytes/100 WBC (Bld) 26.1 % 19-41 [facility] Work Phone: Blood monocytes/100 leukocyt eson 03-25-2022 Monocytes/100 WBC (Bld) 13.4 % 0-10 [facility] Work Phone: Blood platelet mean volumeon 03-25-2022 Platelet mean volume (Bld) [Entitic vol] 9.0 fL 6.2-12.0 [facility] Work Phone: Determination of erythrocyte mean corpuscular volume (MCV)on 03-25-2022 MCV (RBC) [Entitic vol] 83.4 fL 81-99 [facility] Work Phone: Hematocrit Auto (Bld) [Volum e fraction]on 03-25-2022 Hematocrit (Bld) [Volume fraction] 37.2 % 37-47 [facility] Work Phone: Laboratory - Chemistry and C hemistry - challengeon 03-25-2022 ALP [Catalytic activity/Vol] 164 U/L 45-117 [facility] Work Phone: ALT [Catalytic activity/Vol] 45 U/L 13-56 [facility] Work Phone: CO2 [Moles/Vol] 30.0 mmol/L 21.0-32.0 [facility] Work Phone: Globulin (S) [Mass/Vol] 4.4 g/dL 2.2-4.2 [facility] Work Phone: Urea nitrogen/Creatinine [Mass ratio] 15.3 mg/mg 10-20 [facility] Work Phone: Laboratory - Hematology and Cell countson 03-25-2022 Erythrocyte distribution width (RBC) [Entitic vol] 55.1 fL 35.1-43.9 [facility] Work Phone: Erythrocyte distribution width (RBC) [Ratio] 18.3 % 11.6-14.6 [facility] Work Phone: Immature granulocytes/100 WBC (Bld) 0.400 % 0.0-0.9 [facility] Work Phone: Comment on above: IG% - Immature Granu locytes (promyelocytes, myelocytes and metamyelocytes) > 1% indicates that a LEFT SHIFT is Present. MCH (RBC) [Entitic mass] 28.5 pg 27.0-32.0 [facility] Work Phone: Nucleated RBC/100 WBC (Bld) [Ratio] 0 % 0-5 [facility] Work Phone: MCHC Auto (RBC) [Mass/Vol]on 03-25-2022 MCHC (RBC) [Mass/Vol] 34.1 g/dL 32-36 [facility] Work Phone: No Panel Informationon 03-25 Estimated GFR (MDRD) Amer 130 mL/min >60 [facility] Work Phone: Comment on above: GFR Calc Estimated GFR (MDRD) Non-Af Amer 108 mL/min >60 [facility] Work Phone: Comment on above: Non- GFR Calc Platelets bldon 03-25-2022 Platelets (Bld) [#/Vol] 203 10*3/uL 150-450 [facility] Work Phone: Serum or plasma albumin seth urement (mass/volume)on 03-25-2022 Albumin [Mass/Vol] 3.6 g/dL 3.2-5.0 [facility] Work Phone: Serum or plasma albumin/glob ulin mass ratioon 03-25-2022 Albumin/Globulin [Mass ratio] 0.8 {ratio} 0.9-2.4 [facility] Work Phone: Serum or plasma calcium seth urement (mass/volume)on 03-25-2022 Calcium [Mass/Vol] 9.7 mg/dL 8.5-10.1 [facility] Work Phone: Serum or plasma creatinine m easurement (mass/volume)on 03-25-2022 Creatinine [Mass/Vol] 0.59 mg/dL 0.55-1.02 [facility] Work Phone: Comment on above: The validity of the calculated GFR & GFRAA in patients over 70 years has not been determined. Clinical correlation is essential. Serum or plasma urea nitroge n measurement (mass/volume)on 03-25-2022 Urea nitrogen [Mass/Vol] 9 mg/dL 7-18 [facility] Work Phone: Thin prep Papanicolaou smear with manual screeningon 03-25-2022 Thin prep Papanicolaou smear with manual screening 113 U/L 15-37 [facility] Work Phone: Thin prep Papanicolaou smear with manual screening 11 5-15 [facility] Work Phone: CBC WITH AUTO DIFFon 021 BASO, ABSOLUTE (AUTO) 0.1 10 3/uL Normal 0.0-0.2 [facility] Comment on above: Performed By: #### C MP, CPK 1, CBC, TROP 1 #### Main Lab - [facility] [address] [place] [address] Basophils/100 WBC (Bld) 1.4 % High 0.0-1.0 [facility] Comment on above: Performed By: #### C MP, CPK 1, CBC, TROP 1 #### Main Lab - [address] [address] EOSINOPHILS, ABSOLUTE (AUTO) 0.1 10 3/uL Normal 0.0-0.7 [facility] Comment on above: Performed By: #### C MP, CPK 1, CBC, TROP 1 #### Main Lab - [address] [address] Eosinophils/100 WBC (Bld) 1.1 % Normal 0.0-5.0 [facility] Comment on above: Performed By: #### C MP, CPK 1, CBC, TROP 1 #### Main [facility] - [address] [address] Erythrocyte distribution width (RBC) [Ratio] 14.4 % High 11.5-14.0 [facility] Comment on above: Performed By: #### C MP, CPK 1, CBC, TROP 1 #### [facility] - [address] [address] Hematocrit (Bld) [Volume fraction] 32.4 % Low 34.8-45.0 [facility] Comment on above: Performed By: #### C MP, CPK 1, CBC, TROP 1 #### [facility] - [address] [address] Hemoglobin (Bld) [Mass/Vol] 11.4 g/dL Low 11.6-14.9 [facility] Comment on above: Performed By: #### C MP, CPK 1, CBC, TROP 1 #### [facility] - [address] [address] LYMPHOCYTES, ABSOLUTE (AUTO) 1.2 10 3/uL Normal 1.0-3.5 [facility] Comment on above: Performed By: #### C MP, CPK 1, CBC, TROP 1 #### [facility] - [address] [address] Lymphocytes/100 WBC (Bld) 18.4 % Low 24.0-44.0 [facility] Comment on above: Performed By: #### C MP, CPK 1, CBC, TROP 1 #### [facility] - [address] [address] MCH (RBC) [Entitic mass] 36.4 pg High 27.0-31.0 [facility] Comment on above: Performed By: #### C MP, CPK 1, CBC, TROP 1 #### Main Lab - [address] [address] MCHC (RBC) [Mass/Vol] 35.1 g/dL Normal 32.0-36.0 [facility] Comment on above: Performed By: #### C MP, CPK 1, CBC, TROP 1 #### [facility] - [address] [address] MCV (RBC) [Entitic vol] 103.6 fL High 78.0-100.0 [facility] Comment on above: Performed By: #### C MP, CPK 1, CBC, TROP 1 #### [facility] - [address] [address] MONOCYTES, ABSOLUTE (AUTO) 0.7 10 3/uL Normal 0.2-0.8 [facility] Comment on above: Performed By: #### C MP, CPK 1, CBC, TROP 1 #### [facility] - [address] [address] Monocytes/100 WBC (Bld) 10.5 % High 1.7-9.3 [facility] Comment on above: Performed By: #### C MP, CPK 1, CBC, TROP 1 #### [facility] - [address] [address] NEUTROPHILS, ABSOLUTE (AUTO) 4.3 10 3/uL Normal 1.5-6.7 [facility] Comment on above: Performed By: #### C MP, CPK 1, CBC, TROP 1 #### [facility] - [address] [address] Neutrophils/100 WBC (Bld) 68.6 % High 36.0-66.0 [facility] Comment on above: Performed By: #### C MP, CPK 1, CBC, TROP 1 #### Main Lab - [facility] [address] [place] [address] PLATELET COUNT 163 10 3/uL Normal 150-450 [facility] Comment on above: Performed By: #### C MP, CPK 1, CBC, TROP 1 #### Main Lab - [facility] [place], [place] [address] Platelet mean volume (Bld) [Entitic vol] 7.2 fL Normal 6.0-9.5 [facility] Comment on above: Performed By: #### C MP, CPK 1, CBC, TROP 1 #### Main Lab - [facility] [address] RED BLOOD COUNT 3.13 x10 6/uL Low 3.89-5.30 [facility] Comment on above: Performed By: #### C MP, CPK 1, CBC, TROP 1 #### Main Lab - [facility] [address] WHITE BLOOD COUNT 6.3 10 3/uL Normal 4.0-10.5 [facility] Comment on above: Performed By: #### C MP, CPK 1, CBC, TROP 1 #### Main Lab - [facility] [address] COMPREHENSIVE METABOLIC PANE Satinder 05-05-2021 Albumin [Mass/Vol] 3.5 g/dL Low 3.9-5.0 [facility] Comment on above: Performed By: #### C MP, CPK 1, CBC, TROP 1 #### Main Lab - [facility] [address] Albumin/Globulin [Mass ratio] 1.0 {ratio} Low 1.1-1.8 [facility] Comment on above: Performed By: #### C MP, CPK 1, CBC, TROP 1 #### Main Lab - [facility] [address] [place] [address] ALP [Catalytic activity/Vol] 122 U/L Normal 43-122 [facility] Comment on above: Performed By: #### C MP, CPK 1, CBC, TROP 1 #### Main Lab - [facility] [address] [place] [address] ALT [Catalytic activity/Vol] 25 U/L Normal 7-56 [facility] Comment on above: Performed By: #### C MP, CPK 1, CBC, TROP 1 #### Main Lab - [address] [address] Anion gap [Moles/Vol] 16 mmol/L Normal 9-18 [facility] Comment on above: Performed By: #### C MP, CPK 1, CBC, TROP 1 #### Main Lab - [address] [address] AST [Catalytic activity/Vol] 44 U/L High 8-39 [facility] Comment on above: Performed By: #### C MP, CPK 1, CBC, TROP 1 #### Main Lab - [address] [address] Bilirubin [Mass/Vol] 1.7 mg/dL High 0.2-1.3 [facility] Comment on above: Performed By: #### C MP, CPK 1, CBC, TROP 1 #### [facility] - [address] [address] BUN/CREATININE RATIO 21.3 Ratio Normal 5.0-42.0 [facility] Comment on above: Performed By: #### C MP, CPK 1, CBC, TROP 1 #### [facility] - [address] [address] Calcium [Mass/Vol] 9.2 mg/dL Normal 8.4-10.2 [facility] Comment on above: Performed By: #### C MP, CPK 1, CBC, TROP 1 #### Main Lab - [address] [address] Chloride [Moles/Vol] 94 mmol/L Low 98-107 [facility] Comment on above: Performed By: #### C MP, CPK 1, CBC, TROP 1 #### Main Lab - [address] [address] CO2 [Moles/Vol] 25 mmol/L Normal 22-31 [facility] Comment on above: Performed By: #### C MP, CPK 1, CBC, TROP 1 #### Main Lab - [address] [address] Creatinine [Mass/Vol] 0.61 mg/dL Low 0.80-1.30 [facility] Comment on above: Performed By: #### C MP, CPK 1, CBC, TROP 1 #### Main Lab - [facility] [place], [place] [address] ESTIMATED CREAT CLEARANCE 78.32 Normal [facility] Comment on above: Result Comment: COCK CROFT-GAULT FORMULA 1973 Performed By: #### C MP, CPK 1, CBC, TROP 1 #### Main Lab - [facility] [place], [place] [address] ESTIMATED GLOMERULAR FILT RATE > 60.000 Normal [facility] Comment on above: Performed By: #### C MP, CPK 1, CBC, TROP 1 #### Main Lab - [address] [address] Globulin (S) [Mass/Vol] 3.5 g/dL Normal [facility] Comment on above: Performed By: #### C MP, CPK 1, CBC, TROP 1 #### Main Lab - [facility] [address] [place] [address] Glucose [Mass/Vol] 95 mg/dL Normal 70-99 [facility] Comment on above: Result Comment: The glucose range is based on recommendations from the [place] [employer] for fasting blood glucose range. Performed By: #### C MP, CPK 1, CBC, TROP 1 #### Main Lab - [address] [address] Potassium [Moles/Vol] 3.7 mmol/L Normal 3.6-5.0 [facility] Comment on above: Performed By: #### C MP, CPK 1, CBC, TROP 1 #### Main Lab - [facility] [address] [place] [address] Protein [Mass/Vol] 7.0 g/dL Normal 6.3-8.2 [facility] Comment on above: Performed By: #### C MP, CPK 1, CBC, TROP 1 #### Main Lab - [facility] [address] [place] [address] Sodium [Moles/Vol] 131 mmol/L Low 137-145 [facility] Comment on above: Performed By: #### C MP, CPK 1, CBC, TROP 1 #### Main Lab - [facility] [address] [place] [address] Urea nitrogen [Mass/Vol] 13 mg/dL Normal - [facility] Comment on above: Performed By: #### C MP, CPK 1, CBC, TROP 1 #### Main Lab - [facility] [address] [place] [address] AGE,PATIENT 70 Years Normal [facility] Comment on above: Performed By: #### C MP, CPK 1, CBC, TROP 1 #### Main Lab - [facility] [address] [place] [address] CREATINE KINASEon 05-05-2021 CK [Catalytic activity/Vol] 31 U/L Low 55-170 [facility] Comment on above: Performed By: #### C MP, CPK 1, CBC, TROP 1 #### Main Lab - [facility] [address] [place] [address] HEAD W/O CONTRASTon 05-05 CT HEAD W/O CONTRAST [facility] [address] [place] [address] Diagnostic Imaging Report : [id number] Signed Name: MARY ALICE GA MRUN: [id number] : 1950 Loc: ED Age / Sex: 70 / F ADM Status: REG ER ADM Date: 05/05/21 Room/Bed: Ordering Physician: Isaiah Bhakta PA-C Procedure: CT HEAD W/O CONTRAST Order Number(s): [id number] Ordered Date: 05/05/21 Ordered Time: 1241 EXAMINATION: [...] 05/05/21 1331 Transcribed Date/Time: 05/05/21 1327 Normal [facility] ED Physician Documentationon 05-05-2021 ED Physician Documentation [address] [place] [address] Physician Documentation Signed: Name: [facility]ICE [id number] MRUN: [id number] : 1950 Loc: ED Age / Sex: [...] Abnormal Uterine Bleeding Additional surgical history details: [facility] BSO 1991 Hemotologic: Anemia Additional details/comments: treated anemia with medicational suppliments Psychiatric: Negative Psychiatric Treatments: Negative Other medical history:: Chicken Pox, Measles, Mumps Other surgeries/treatments: Blood Transfusions Other surgeries/treatments details: 2004 thinks she had blood transfusion. 05/2016 had [...] Lymphadenopathy, Me (more content not included)... Normal [facility] TROPONIN Ion 05-05-2021 Troponin I.cardiac [Mass/Vol] ng/mL Normal 0.0-0.03 [facility] Comment on above: Result Comment: Refe rence Interval < or = 0.03 ng/mL Clinical Correlation Needed 0.03 - 0.11 ng/mL AMI Cutoff, Presumptive = or > 0.12 ng/mL Performed By: #### C MP, CPK 1, CBC, TROP 1 #### Main Lab - [facility] [address] [place] [address] Waveform Imaging Reporton Waveform Imaging Report [facility] [address] [place] [address] [id number] Waveform Imaging Report : [id number] Signed Name: MARY ALICE GA MRUN: [id number] : 1950 Loc: ED Age / Sex: 70 / F ADM Status: DEP ER ADM Date: 05/05/21 Room/Bed: Ordering Physician: Isaiah Bhakta PA-C Procedure: EKG Order Number(s): [id number] Ordered Date: 05/05/21 Ordered Time: 1242 Test Date: 2021-05-05 12:52:46 Pat Name: MARY ALICE GA Department: ED Room: Gender: F [employer]: : 1950 Requested By: Isaiah Hughes Order Number: [id number] Reading MD: Shaq Lal Measurements Intervals [place] Rate: 63 P: 24 MI: 164 QRS: 13 QRSD: 92 T: 38 QT: 466 QTc: 478 Interpretive Statements Heart Rate: 63 MI Interval: 164 QRS Duration: 92 QT Interval: 466 QTc: 478 Interpretation: Sinus arrhythmia normal MI interval, normal QRS, normal QTC, normal axis, nonspecific ST changes, no STEMI Electronically Signed On 05-05-2021 19:06:10 EDT by Shaq Lal Dictated By: Shaq Lal MD Dictated Date/Time: 05/05/21 1252 Signed By: Shaq Lal MD, MD Signed Date/Time: 05/05/21 1906 Transcribed Date/Time: Normal [facility] XR SACRUM/COCCYXon XR SACRUM/COCCYX [facility] [address] [place] [address] [id number] Diagnostic Imaging Report : [id number] Signed Name: MARY ALICE GA MRUN: [id number] : 1950 Loc: ED Age / Sex: 70 / F ADM Status: REG ER ADM Date: 05/05/21 Room/Bed: Ordering Physician: Isaiah Bhakta PA-C Procedure: XR SACRUM/COCCYX Order Number(s): [id number] Ordered Date: 05/05/21 Ordered Time: 1342 EXAMINATION: THREE XRAY VIEWS OF THE SACRO-ILIAC [...] Signed Date/Time: 05/05/21 1423 Transcribed Date/Time: 05/05/21 142 Normal [facility] SCREEN MAMMO DIG W/ZANA BIon 06-25-2020 CHL SCREEN MAMMO DIG W/ZANA BI [facility] [address] [place] [address] Diagnostic Imaging Report : [id number] Signed Name: MARY ALICE GA MRUN: [id number] : 1950 Loc: [facility] Age / Sex: 69 / F ADM Status: REG CLI ADM Date: 06/25/20 Room/Bed: Ordering Physician: Giana ARAUJO, Delores Castellano Procedure: CHL SCREEN MAMMO DIG W/ZANA BI Order Number(s): [id number] Ordered Date: 06/25/20 Ordered Time: 0803 EXAMINATION: [...] 2D - BENIGN FINDINGS, DENSE BREASTS DISCLAIMER: [place] [employer] Recommendations for Breast Cancer [...] 06/25/20 1353 Transcribed Date/Time: 06/25/20 1349 Normal [facility] WOUND CULTUREon 01-14-2020 WOUND CULTURE SPARSE GROWTH PMN'S 1+ GRAM POSITIVE COCCI IN PAIRS pseaer 2+ gnr 2+ Normal [facility] Comment on above: Order Comment: Site: right leg Performed By: #### [id number] #### [facility] [address] WOUND CULTUREon 12-23-2019 WOUND CULTURE SPARSE GROWTH NO ORGANISMS SEEN pseaer 1+ Normal [facility] Comment on above: Order Comment: Site: right lower leg Performed By: #### [id number] #### [facility] [address] [facility] [place] [facility] MARY ALICE GA ([id number]) 1950 F T Date Time Provider Department [...] JEROME CMA on 07/05/19 Normal [facility] CCP Antibody, IgGon 06-10-20 19 CCP Antibody, IgG <15 Normal <20 [facility] Comment on above: Result Comment: < 20 units: Negative 20-39 units: Weak Positive 40-59 units: Moderate Positive > 60 units: Strong Positive The following results were obtained with the [employer] Lite CCP3 IgG ADDIE. Anti-CCP values obtained with different manufacturers' assay methods may not be used interchangeably. The magnitude of the reported IgG levels cannot be correlated to an endpoint titer. Performing Laboratory: [place] [address] Performed By: #### C CPX #### [place] [address] Hep B Core Ab,Totalon 2018 Hep B Core Ab,Total Negative Normal NEGAT [facility] Comment on above: Result Comment: Perf orming Laboratory: [place] [address] Performed By: #### H BCTX #### [place] [address] Quantiferon (Rapd TB)on Quantiferon (Rapd TB) SEE BELOW Normal [facility] Comment on above: Result Comment: TB N IL 0.04 IU/mL TB1 Ag minus Nil 0.00 <0.35 IU/mL TB2 Ag minus Nil 0.00 <0.35 IU/mL Mitogen minus Nil >10 TB Result Negative NEGAT Interpretation SEE BELOW No evidence of current or previous infection with Mycobacterium tuberculosis. Performing Laboratory: [place] [address] Performed By: #### Q UANX #### [place] [address] Hep. B Surface Abon 06-06-20 19 Hep. B Surface Ab 68.6 mIU/mL Normal [facility] Comment on above: Result Comment: Hep B. Antibody < 10.0 mIU/mL is negative. Hep B. Antibody > or = 10.0 mIU/mL is positive. Performed By: #### A NTB #### [place] [address] Hep. B Surface Agon 06-06-20 Hep.B Surface Ag Negative Normal Negative [facility] Comment on above: Performed By: #### H BSAG #### [facility] [address] [place], [place] [address] Hepatitis C Antibodyon 06-06 Hepatitis C Ab Negative Normal Negative [facility] Comment on above: Performed By: #### H CVAB #### [facility] [address] [place], [place] [address] Total 25-OH Vitamin Don 10-0 Total 25-OH Vitamin D 33.2 ng/mL Normal 30.0-100.0 [facility] Comment on above: Performed By: #### 2 5VD1 #### [facility] [address] [place], [place] [address] CNOVon 06-05-2019 CNOV Office Visit (RHBATH ) -- MARY ALICE GA ([id number]) 1950 F T Date Time Provider Department 06/05/19 10:20 AM REBECCA LEI During your visit today, we [...] level: Not on file 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: [employer] 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 [...] file Gets together: Not on file Attends zoroastrianism service: Not on file Active member of [...] on file Occupation: Employer And Job Title: [employer] (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) Years Of Education Completed: Not specified Marital [...] Rebecca Lei MD Referring Provider: ABDIRAHMAN CONLEY [[id number]] Allergies As of Date: 06/05/2019 Noted Allergy [...] [M15.0] Order(s):CCP ANTIBODY IGG [SQCCP] Order #: [id number] FUTURE HEP B SURF AG SCRN [SQHBSAG] Order #: [id number] FUTURE HEP B SURF AB QUANT [SQAHBSQ] Order #: [id number] FUTURE HEP C AB IA BLOOD [SQAHCV] Order #: [id number] FUTURE HEP B CORE AB TOTAL [SQAHBCOT] Order #: [id number] FUTURE BLOOD TB SCREEN, INCUBATED [SQINTPGP] Order #: [id number] FUTURE VITAMIN D 25 HYDROXY [SQVITD] Order #: [id number] FUTURE XR HAND GENERAL 3V PA/LAT/OBL LT [[id number]] Order #: [id number] FUTURE XR HAND GENERAL 3V PA/LAT/OBL RT [[id number]] Order #: [id number] FUTURE US HAND/WRIST SYNOVIAL SCREEN RT [[id number]] Order #: [id number] FUTURE US HAND/WRIST SYNOVIAL SCREEN LT [[id number]] Order #: [id number] FUTURE CONSULT TO PHYSICAL THERAPY (AG) [5440041] Order #: [id number]: 1 Prescriptions as of 06/05/2019 Sig: NADOLOL [...] REBECCA LEI MD on 06/05/19 [facility] PROGRESSon 06-05-2019 PROGRESS HNO ID: [id number] Author: Rebecca Lei Service: ? 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 Rebecca Lei MD [facility] XR HAND 3V PA/LAT/OBL LTon 1 [...] correlation is recommended. Osteoarthritis is also noted. Gis Web Developer: ABDIEL Transcribe Date/Time: Jun 06 2019 1:12P Dictated by : OTTO FLOR MD This examination was interpreted and the report reviewed and electronically signed by: OTTO FLOR MD on Jun 06 2019 1:14PM [facility] XR HAND 3V PA/LAT/OBL RTon 1 XR [...] correlation is recommended. Osteoarthritis is also noted. Gis Web Developer: [facility] Transcribe Date/Time: Jun 06 2019 1:12P Dictated by : OTTO FLOR MD This examination was interpreted and the report reviewed and electronically signed by: OTTO FLOR MD on Jun 06 2019 1:14PM EST Normal [facility] HISTORY PHYSICALon 7 HISTORY PHYSICAL HNO ID: [id number] thor: Lili Bates: GastroenterologyAuthor Type: PhysicianType: HANDPFiled: [...] August 16, 2017 : 8:51 AM PAGER: [phone] [facility] PT EDon 08-16-2017 PT ED HNO ID: [id number] thor: Min CaputoRn) RANDY Jimervice: NursingAuthor Type: Registered NurseType: Patient EducationFiled: 08/16/2017 10:09 AMNote Text:POST OP LEARNING RESPONSEINSTRUCTION PROVIDED TO: Patient and family memberMETHOD OF INSTRUCTION: Written instruction - handoutsVerbal instructionPATIENT / FAMILY RESPONSE: Verbalizes understanding of: POST-OPERATIVEINSTRUCTIONS -Correct actions to take to reduce postoperative complicationsFOLLOW-UP PLAN: Complete - No need for follow-upSUPPLEMENTAL MATERIAL: NoneREFERRAL (RECOMMENDATION): NoneElectronically Signed By: Min Jim RN In Department: [facility] ENDOSCOPY [facility] PT ED HNO ID: [id number] thor: RANDY Cannon Rnervice: NursingAuthor Type: Registered NurseType: Patient EducationFiled: 08/16/2017 8:52 AMNote Text:PRE OP LEARNING ASSESSMENTPROCEDURE/SURGER Y: GI PROCEDURES: EGDREADINESS TO LEARNCOGNITIVE ABILITY: Alert and orientedMOTIVATION TO LEARN: InterestedFAMILY SUPPORT: High - Very involved in pt carePATIENT LEARNS BEST BY: Written Instruction - Hand-outsFACTORS AFFECTING LEARNING: NonePHYSICAL LIMITATIONS AFFECTING LEARNING: NoneElectronically Signed By: Liseth Mni RN In Department: [facility] ENDOSCOPY [facility] SURGICAL PATHOLOGYon 017 SURGICAL PATHOLOGY Specimen #: [id number] Physician: LILI ALVAREZ M.D. FINAL DIAGNOSISStomach, antrum, [...] submitted in one cassette.Gross examination performed at [facility], [address] [place] [id number] 08/16/2017 7:27:12 PMPatient ID #: [id number] of Report: 08/17/2017Date of Procedure: 08/16/2017Date of Receipt: 08/16/2017Submitted by: LILI ALVAREZ M.D.Location: MMMMENDDiagnostic interpretation performed at [facility], [address] [place] [address]. [facility] HOSPon 07-07-2017 HOSP Patient:Iris Ga FMRN: Height:5' [...] notes entered within the past 30 days [facility] Bacteria identified Anaer cx Nom (Unsp spec) Anaerobic microbial culture No anaerobic bacteria isolated. [facility] Work Phone: Bacteria identified Cx Nom ( Wound) Wound Culture Staphylococcus epidermidis [facility] Work Phone: Wound Culture Negative [facility] Work Phone: Gram stain for investigation of transfusion reaction Microscopic observation Gram stain Nom (Unsp spec) [facility] Work Phone: Vital Signs Date Time Vital Sign Value Performing Clinician Faci lity 05-21-2025 08:10-0400 Body height 162.[address] Khanh Rodriguez MD Work Phone: [facility] 05-21-2025 08:10-0400 Body mass index (BMI) [Ratio] 23.1 kg/m2 Dr. Khanh Rodriguez MD Work Phone: [facility] 05-21-2025 08:10-0400 Body temperature 97.6 [degF] Dr. Khanh Rodriguez MD Work Phone: [facility] 05-21-2025 08:10-0400 Body weight 61.[address] Khanh Rodriguez MD Work Phone: [facility] 05-21-2025 08:10-0400 Diastolic blood pressure 64 mm[Hg] Dr. Khanh Rodriguez MD Work Phone: [facility] 05-21-2025 08:10-0400 Heart rate 75 /min Dr. Khanh Rodriguez MD Work Phone: [facility] 05-21-2025 08:10-0400 Respiratory rate 16 /min Dr. Khanh Rodriguez MD Work Phone: [facility] 05-21-2025 08:10-0400 SaO2% (BldA) [Mass fraction] 100 % Dr. Khanh Rodriguez MD Work Phone: [facility] 05-21-2025 08:10-0400 Systolic blood pressure 104 mm[Hg] Dr. Khanh Rodriguez MD Work Phone: [facility] 05-08-2025 13:08-0400 Body height 154.[address] Khanh Rodriguez MD Work Phone: [facility] 05-08-2025 13:08-0400 Body mass index (BMI) [Ratio] 25.2 kg/m2 Dr. Khanh Rodriguez MD Work Phone: [facility] 05-08-2025 13:08-0400 Body weight 60.[address] Khanh Rodrigeuz MD Work Phone: [facility] 04-29-2025 12:50-0400 Body height 154.[address] Khanh Rodriguez MD Work Phone: [facility] 04-29-2025 12:50-0400 Body temperature 96.8 [degF] Dr. Khanh Rodriguez MD Work Phone: [facility] 04-29-2025 12:50-0400 Diastolic blood pressure 66 mm[Hg] Dr. Khanh Rodriguez MD Work Phone: [facility] 04-29-2025 12:50-0400 Heart rate 63 /min Dr. Khanh Rodriguez MD Work Phone: [facility] 04-29-2025 12:50-0400 Respiratory rate 18 /min Dr. Khanh Rodriguez MD Work Phone: [facility] 04-29-2025 12:50-0400 SaO2% (BldA) [Mass fraction] 97 % Dr. Khanh Rodriguez MD Work Phone: [facility] 04-29-2025 12:50-0400 Systolic blood pressure 128 mm[Hg] Dr. Khanh Rodriguez MD Work Phone: [facility] 04-25-2025 13:01-0400 Body height 154.[address] Khanh Rodriguez MD Work Phone: [facility] 04-25-2025 13:01-0400 Body mass index (BMI) [Ratio] 24.5 kg/m2 Dr. Khanh Rodriguez MD Work Phone: [facility] 04-25-2025 13:01-0400 Body temperature 97.2 [degF] Dr. Khanh Rodriguez MD Work Phone: [facility] 04-25-2025 13:01-0400 Body weight 58.[address] Khanh Rodriguez MD Work Phone: [facility] 04-25-2025 13:01-0400 Diastolic blood pressure 57 mm[Hg] Dr. Khanh Rodriguez MD Work Phone: [facility] 04-25-2025 13:01-0400 Heart rate 70 /min Dr. Khanh Rodriguez MD Work Phone: [facility] 04-25-2025 13:01-0400 Respiratory rate 16 /min Dr. Khanh Rodriguez MD Work Phone: [facility] 04-25-2025 13:01-0400 SaO2% (BldA) [Mass fraction] 99 % Dr. Khanh Rodriguez MD Work Phone: [facility] 04-25-2025 13:01-0400 Systolic blood pressure 103 mm[Hg] Dr. Khanh Rodriguez MD Work Phone: [facility] 03-28-2025 12:14-0400 Body height 154.[address] Kahnh Rodriguez MD Work Phone: [facility] 03-28-2025 12:14-0400 Body mass index (BMI) [Ratio] 25.4 kg/m2 Dr. Khanh Rodriguez MD Work Phone: [facility] 03-28-2025 12:14-0400 Body temperature 97.1 [degF] Dr. Khanh Rodriguez MD Work Phone: [facility] 03-28-2025 12:14-0400 Body weight 61.[address] Khanh Rodriguez MD Work Phone: [facility] 03-28-2025 12:14-0400 Diastolic blood pressure 60 mm[Hg] Dr. Khanh Rodriguez MD Work Phone: [facility] 03-28-2025 12:14-0400 Heart rate 62 /min Dr. Khanh Rodriguez MD Work Phone: [facility] 03-28-2025 12:14-0400 Respiratory rate 16 /min Dr. Khanh Rodriguez MD Work Phone: [facility] 03-28-2025 12:14-0400 SaO2% (BldA) [Mass fraction] 99 % Dr. Khanh Rodriguez MD Work Phone: [facility] 03-28-2025 12:14-0400 Systolic blood pressure 122 mm[Hg] Dr. Khanh Rodriguez MD Work Phone: [facility] 02-28-2025 12:14-0400 Body height 154.[address] Khanh Rodriguez MD Work Phone: [facility] 02-28-2025 12:14-0400 Body mass index (BMI) [Ratio] 25.4 kg/m2 Dr. Khanh Rodriguez MD Work Phone: [facility] 02-28-2025 12:14-0400 Body temperature 96.7 [degF] Dr. Khanh Rodriguez MD Work Phone: [facility] 02-28-2025 12:14-0400 Body weight 61.[address] Khanh Rodriguez MD Work Phone: [facility] 02-28-2025 12:14-0400 Diastolic blood pressure 48 mm[Hg] Dr. Khanh Rodriguez MD Work Phone: [facility] 02-28-2025 12:14-0400 Heart rate 66 /min Dr. Khanh Rodriguez MD Work Phone: [facility] 02-28-2025 12:14-0400 Respiratory rate 16 /min Dr. Khanh Rodriguez MD Work Phone: [facility] 02-28-2025 12:14-0400 SaO2% (BldA) [Mass fraction] 98 % Dr. Khanh Rodriguez MD Work Phone: [facility] 02-28-2025 12:14-0400 Systolic blood pressure 113 mm[Hg] Dr. Khanh Rodriguez MD Work Phone: [facility] 02-25-2025 14:33-0400 Body temperature 98.1 [degF] Nayan Blackmon MD Work Phone: [facility] 02-25-2025 14:33-0400 Diastolic blood pressure 63 mm[Hg] Nayan Blackmon MD Work Phone: [facility] 02-25-2025 14:33-0400 Heart rate 59 /min Nayan Blackmon MD Work Phone: [facility] 02-25-2025 14:33-0400 SaO2% (BldA) [Mass fraction] 99 % Nayan Blackmon MD Work Phone: [facility] 02-25-2025 14:33-0400 Systolic blood pressure 131 mm[Hg] Nayan Blackmon MD Work Phone: [facility] 02-18-2025 15:50-0400 Diastolic blood pressure 52 mm[Hg] [facility] Work Phone: [facility] 02-18-2025 15:50-0400 Heart rate 70 /min [facility] Work Phone: [facility] 02-18-2025 15:50-0400 Respiratory rate 18 /min [facility] Work Phone: [facility] 02-18-2025 15:50-0400 SaO2% (BldA) [Mass fraction] 98 % [facility] Work Phone: [facility] 02-18-2025 15:50-0400 Systolic blood pressure 118 mm[Hg] [facility] Work Phone: [facility] 02-18-2025 14:30-0400 Body temperature 96.6 [degF] [facility] Work Phone: [facility] 02-11-2025 15:31-0400 Body mass index (BMI) [Ratio] 29.94 kg/m2 Nayan Blackmon MD Work Phone: [facility] 02-11-2025 15:31-0400 Body temperature 97.7 [degF] Nayan Blackmon MD Work Phone: [facility] 02-11-2025 15:31-0400 Body weight 74.25 kg Nayan Blackmon MD Work Phone: [facility] 02-11-2025 15:31-0400 Diastolic blood pressure 66 mm[Hg] Nayan Blackmon MD Work Phone: [facility] 02-11-2025 15:31-0400 Heart rate 68 /min Nayan Blackmon MD Work Phone: [facility] 02-11-2025 15:31-0400 Respiratory rate 20 /min Nayan Blackmon MD Work Phone: [facility] 02-11-2025 15:31-0400 SaO2% (BldA) [Mass fraction] 98 % Nayan Blackmon MD Work Phone: [facility] 02-11-2025 15:31-0400 Systolic blood pressure 117 mm[Hg] Nayan Blackmon MD Work Phone: [facility] 01-31-2025 11:07-0400 Body height 154.[address] Khanh Rodriguez MD Work Phone: [facility] 01-31-2025 11:07-0400 Body mass index (BMI) [Ratio] 25.3 kg/m2 Dr. Khanh Rodriguez MD Work Phone: [facility] 01-31-2025 11:07-0400 Body temperature 96.9 [degF] Dr. Khanh Rodriguez MD Work Phone: [facility] 01-31-2025 11:07-0400 Body weight 60.[address] Khanh Rodriguez MD Work Phone: [facility] 01-31-2025 11:07-0400 Diastolic blood pressure 70 mm[Hg] Dr. Khanh Rodriguez MD Work Phone: [facility] 01-31-2025 11:07-0400 Heart rate 70 /min Dr. Khanh Rodriguez MD Work Phone: [facility] 01-31-2025 11:07-0400 Respiratory rate 16 /min Dr. Khanh Rodriguez MD Work Phone: [facility] 01-31-2025 11:07-0400 SaO2% (BldA) [Mass fraction] 100 % Dr. Khanh Rodriguez MD Work Phone: [facility] 01-31-2025 11:07-0400 Systolic blood pressure 123 mm[Hg] Dr. Khanh Rodriguez MD Work Phone: [facility] 01-23-2025 13:22-0400 Body temperature 98.2 [degF] Dr. Khanh Rodriguez MD Work Phone: [facility] 01-23-2025 13:22-0400 Diastolic blood pressure 66 mm[Hg] Dr. Khanh Rodriguez MD Work Phone: [facility] 01-23-2025 13:22-0400 Heart rate 66 /min Dr. Khanh Rodriguez MD Work Phone: [facility] 01-23-2025 13:22-0400 Respiratory rate 16 /min Dr. Khanh Rodriguez MD Work Phone: [facility] 01-23-2025 13:22-0400 SaO2% (BldA) [Mass fraction] 96 % Dr. Khanh Rodriguez MD Work Phone: [facility] 01-23-2025 13:22-0400 Systolic blood pressure 119 mm[Hg] Dr. Khanh Rodriguez MD Work Phone: [facility] 01-22-2025 11:52-0400 Body height 157.[address] Khanh Rodriguez MD Work Phone: [facility] 01-22-2025 11:52-0400 Body mass index (BMI) [Ratio] 26.3 kg/m2 Dr. Khanh Rodriguez MD Work Phone: [facility] 01-22-2025 11:52-0400 Body temperature 97.2 [degF] Dr. Khanh Rodriguez MD Work Phone: [facility] 01-22-2025 11:52-0400 Body weight 65.[address] Khanh Rodriguez MD Work Phone: [facility] 01-22-2025 11:52-0400 Diastolic blood pressure 60 mm[Hg] Dr. Khanh Rodriguez MD Work Phone: [facility] 01-22-2025 11:52-0400 Heart rate 64 /min Dr. Khanh Rodriguez MD Work Phone: [facility] 01-22-2025 11:52-0400 Respiratory rate 16 /min Dr. Khanh Rodriguez MD Work Phone: [facility] 01-22-2025 11:52-0400 SaO2% (BldA) [Mass fraction] 95 % Dr. Khanh Rdoriguez MD Work Phone: [facility] 01-22-2025 11:52-0400 Systolic blood pressure 110 mm[Hg] Dr. Khanh Rodriguez MD Work Phone: [facility] 06-17-2024 14:11-0400 Body weight 65.[address] Khanh Rodriguez MD Work Phone: [facility] 06-12-2024 10:30-0400 Body height 157.5 cm Monse Merlos PA-C Work Phone: [facility] 06-12-2024 10:30-0400 Body mass index (BMI) [Ratio] 27.82 kg/m2 Monse Merlos PA-C Work Phone: [facility] 06-12-2024 10:30-0400 Body weight 69 kg Monse Merlos PA-C Work Phone: [facility] 06-12-2024 10:30-0400 Diastolic blood pressure 63 mm[Hg] Monse Merlos PA-C Work Phone: [facility] 06-12-2024 10:30-0400 Heart rate 52 /min Monse Merlos PA-C Work Phone: [facility] 06-12-2024 10:30-0400 SaO2% (BldA) [Mass fraction] 99 % Monse Merlos PA-C Work Phone: [facility] 06-12-2024 10:30-0400 Systolic blood pressure 126 mm[Hg] Monse Merlos PA-C Work Phone: [facility] 04-23-2024 10:38-0400 Diastolic blood pressure 68 mm[Hg] Gt Yin DO Work Phone: [facility] 04-23-2024 10:38-0400 Heart rate 59 /min Gt Yin DO Work Phone: [facility] 04-23-2024 10:38-0400 SaO2% (BldA) [Mass fraction] 100 % Gt Yin DO Work Phone: [facility] 04-23-2024 10:38-0400 Systolic blood pressure 126 mm[Hg] Gt Yin DO Work Phone: [facility] 04-02-2024 13:11-0400 Body height 157.5 cm Marisela Mccarty MD Work Phone: [facility] 04-02-2024 13:11-0400 Body mass index (BMI) [Ratio] 27.82 kg/m2 Marisela Mccarty MD Work Phone: [facility] 04-02-2024 13:11-0400 Body weight 69 kg Marisela Mccarty MD Work Phone: [facility] 02-27-2024 08:46-0400 Diastolic blood pressure 66 mm[Hg] Gt Yin DO Work Phone: [facility] 02-27-2024 08:46-0400 Heart rate 61 /min Gt Yin DO Work Phone: [facility] 02-27-2024 08:46-0400 SaO2% (BldA) [Mass fraction] 99 % Gt Yin DO Work Phone: [facility] 02-27-2024 08:46-0400 Systolic blood pressure 128 mm[Hg] Gt Yin DO Work Phone: [facility] 01-05-2024 10:10-0400 Body height 162.[address] Khanh Rodriguez Work Phone: [facility] 01-05-2024 10:10-0400 Body mass index (BMI) [Ratio] 26.1 kg/m2 Dr. Khanh Rodriguez Work Phone: [facility] 01-05-2024 10:10-0400 Body temperature 97.1 [degF] Dr. Khanh Rodriguez Work Phone: [facility] 01-05-2024 10:10-0400 Body weight 68.[address] Khanh Rodriguez Work Phone: [facility] 01-05-2024 10:10-0400 Diastolic blood pressure 68 mm[Hg] Dr. Khanh Rodriguez Work Phone: [facility] 01-05-2024 10:10-0400 Heart rate 80 /min Dr. Khanh Rodriguez Work Phone: [facility] 01-05-2024 10:10-0400 Respiratory rate 14 /min Dr. Khanh Rodriguez Work Phone: [facility] 01-05-2024 10:10-0400 SaO2% (BldA) [Mass fraction] 99 % Dr. Khanh Rodriguez Work Phone: [facility] 01-05-2024 10:10-0400 Systolic blood pressure 130 mm[Hg] Dr. Khanh Rodriguez Work Phone: [facility] 12-30-2023 13:48-0400 Body temperature 97.5 [degF] Dr. Khanh Rodriguez Work Phone: [facility] 12-30-2023 13:48-0400 Diastolic blood pressure 61 mm[Hg] Dr. Khanh Rodriguez Work Phone: [facility] 12-30-2023 13:48-0400 Heart rate 65 /min Dr. Khanh Rodriguez Work Phone: [facility] 12-30-2023 13:48-0400 Respiratory rate 18 /min Dr. Khanh Rodriguez Work Phone: [facility] 12-30-2023 13:48-0400 SaO2% (BldA) [Mass fraction] 99 % Dr. Khanh Rodriguez Work Phone: [facility] 12-30-2023 13:48-0400 Systolic blood pressure 111 mm[Hg] Dr. Khanh Rodriguez Work Phone: [facility] 12-30-2023 04:27-0400 Body mass index (BMI) [Ratio] 27.4 kg/m2 Dr. Khanh Rodriguez Work Phone: [facility] 12-30-2023 04:27-0400 Body weight 72.[address] Khanh Rodriguez Work Phone: [facility] 12-28-2023 14:16-0400 Body height 162.[address] Khanh Rodriguez Work Phone: [facility] 12-27-2023 13:32-0400 Body temperature 97.5 [degF] Dr. Khanh Rodriguez Work Phone: [facility] 12-27-2023 13:32-0400 Diastolic blood pressure 61 mm[Hg] Dr. Khanh Rodriguez Work Phone: [facility] 12-27-2023 13:32-0400 Heart rate 76 /min Dr. Khanh Rodriguez Work Phone: [facility] 12-27-2023 13:32-0400 Respiratory rate 16 /min Dr. Khanh Rodriguez Work Phone: [facility] 12-27-2023 13:32-0400 SaO2% (BldA) [Mass fraction] 96 % Dr. Khanh Rodriguez Work Phone: [facility] 12-27-2023 13:32-0400 Systolic blood pressure 121 mm[Hg] Dr. Khanh Rodriguez Work Phone: [facility] 12-27-2023 08:47-0400 Body height 159.[address] Khanh Rodriguez Work Phone: [facility] 11-29-2023 09:41-0400 Body temperature 97.4 [degF] Dr. Khanh Rodriguez Work Phone: [facility] 11-29-2023 09:41-0400 Diastolic blood pressure 65 mm[Hg] Dr. Khanh Rodriguez Work Phone: [facility] 11-29-2023 09:41-0400 Heart rate 72 /min Dr. Khanh Rodriguez Work Phone: [facility] 11-29-2023 09:41-0400 Respiratory rate 20 /min Dr. Khanh Rodriguez Work Phone: [facility] 11-29-2023 09:41-0400 Systolic blood pressure 133 mm[Hg] Dr. Khanh Rodriguez Work Phone: [facility] 11-15-2023 15:24-0400 Body height 160.[address] Khanh Rodriguez Work Phone: [facility] 11-15-2023 15:24-0400 Body mass index (BMI) [Ratio] 26.9 kg/m2 Dr. Khanh Rodriguez Work Phone: [facility] 11-15-2023 15:24-0400 Body temperature 98.2 [degF] Dr. Khanh Rodriguez Work Phone: [facility] 11-15-2023 15:24-0400 Body weight 68.[address] Khanh Rodriguez Work Phone: [facility] 11-15-2023 15:24-0400 Diastolic blood pressure 70 mm[Hg] Dr. Khanh Rodriguez Work Phone: [facility] 11-15-2023 15:24-0400 Heart rate 70 /min Dr. Khanh Rodriguez Work Phone: [facility] 11-15-2023 15:24-0400 Respiratory rate 16 /min Dr. Khanh Rodriguez Work Phone: [facility] 11-15-2023 15:24-0400 SaO2% (BldA) [Mass fraction] 99 % Dr. Khanh Rodriguez Work Phone: [facility] 11-15-2023 15:24-0400 Systolic blood pressure 116 mm[Hg] Dr. Khanh Rodriguez Work Phone: [facility] 11-15-2023 09:45-0400 Body temperature 96.1 [degF] Dr. Khanh Rodriguez Work Phone: [facility] 11-15-2023 09:45-0400 Diastolic blood pressure 60 mm[Hg] Dr. Khanh Rodriguez Work Phone: [facility] 11-15-2023 09:45-0400 Heart rate 67 /min Dr. Khanh Rodriguez Work Phone: [facility] 11-15-2023 09:45-0400 Respiratory rate 20 /min Dr. Khanh Rodriguez Work Phone: [facility] 11-15-2023 09:45-0400 Systolic blood pressure 139 mm[Hg] Dr. Khanh Rodriguez Work Phone: [facility] 11-03-2023 10:57-0500 Body height 160.[address] Khanh Rodriguez Work Phone: [facility] 11-03-2023 10:57-0500 Body mass index (BMI) [Ratio] 25.8 kg/m2 Dr. Khanh Rodriguez Work Phone: [facility] 11-03-2023 10:57-0500 Body temperature 97.2 [degF] Dr. Khanh Rodriguez Work Phone: [facility] 11-03-2023 10:57-0500 Body weight 66.[address] Khanh Rodriguez Work Phone: [facility] 11-03-2023 10:57-0500 Diastolic blood pressure 62 mm[Hg] Dr. Khanh Rodriguez Work Phone: [facility] 11-03-2023 10:57-0500 Heart rate 100 /min Dr. Khanh Rodriguez Work Phone: [facility] 11-03-2023 10:57-0500 Respiratory rate 16 /min Dr. Khanh Rodriguez Work Phone: [facility] 11-03-2023 10:57-0500 SaO2% (BldA) [Mass fraction] 97 % Dr. Khanh Rodriguez Work Phone: [facility] 11-03-2023 10:57-0500 Systolic blood pressure 112 mm[Hg] Dr. Khanh Rodriguez Work Phone: [facility] 11-02-2023 11:38-0500 Body temperature 98 [degF] Dr. Khanh Rodriguez Work Phone: [facility] 11-02-2023 11:38-0500 Body weight 66.[address] Khanh Rodriguez Work Phone: [facility] 11-02-2023 11:38-0500 Diastolic blood pressure 66 mm[Hg] Dr. Khanh Rodriguez Work Phone: [facility] 11-02-2023 11:38-0500 Heart rate 73 /min Dr. Khanh Rodriguez Work Phone: [facility] 11-02-2023 11:38-0500 Respiratory rate 16 /min Dr. Khanh Rodriguez Work Phone: [facility] 11-02-2023 11:38-0500 SaO2% (BldA) [Mass fraction] 99 % Dr. Khanh Rodriguez Work Phone: [facility] 11-02-2023 11:38-0500 Systolic blood pressure 124 mm[Hg] Dr. Khanh Rodriguez Work Phone: [facility] 11-01-2023 08:51-0500 Body temperature 97.7 [degF] Dr. Khanh Rodriguez Work Phone: [facility] 11-01-2023 08:51-0500 Diastolic blood pressure 51 mm[Hg] Dr. Khanh Rodriguez Work Phone: [facility] 11-01-2023 08:51-0500 Heart rate 69 /min Dr. Khanh Rodriguez Work Phone: [facility] 11-01-2023 08:51-0500 Respiratory rate 16 /min Dr. Khanh Rodriguez Work Phone: [facility] 11-01-2023 08:51-0500 Systolic blood pressure 120 mm[Hg] Dr. Khanh Rodriguez Work Phone: [facility] 10-26-2023 11:20-0500 Body height 160.[address] Khanh Rodriguez Work Phone: [facility] 10-26-2023 11:20-0500 Body weight 67.[address] Khanh Rodriguez Work Phone: [facility] 10-25-2023 09:43-0500 Body temperature 96.6 [degF] Dr. Khanh Rodriguez Work Phone: [facility] 10-25-2023 09:43-0500 Diastolic blood pressure 53 mm[Hg] Dr. Khanh Rodriguez Work Phone: [facility] 10-25-2023 09:43-0500 Heart rate 63 /min Dr. Khanh Rodriguez Work Phone: [facility] 10-25-2023 09:43-0500 Respiratory rate 16 /min Dr. Khanh Rodriguez Work Phone: [facility] 10-25-2023 09:43-0500 Systolic blood pressure 117 mm[Hg] Dr. Khanh Rodriguez Work Phone: [facility] 10-18-2023 09:49-0500 Body temperature 97.9 [degF] Dr. Khanh Rodriguez Work Phone: [facility] 10-18-2023 09:49-0500 Diastolic blood pressure 62 mm[Hg] Dr. Khanh Rodriguez Work Phone: [facility] 10-18-2023 09:49-0500 Heart rate 74 /min Dr. Khanh Rodirguez Work Phone: [facility] 10-18-2023 09:49-0500 Respiratory rate 16 /min Dr. Khanh Rodriguez Work Phone: [facility] 10-18-2023 09:49-0500 Systolic blood pressure 124 mm[Hg] Dr. Khanh Rodriguez Work Phone: [facility] 10-04-2023 09:58-0500 Body temperature 97.1 [degF] Dr. Khanh Rodriguez Work Phone: [facility] 10-04-2023 09:58-0500 Diastolic blood pressure 50 mm[Hg] Dr. Khanh Rodriguez Work Phone: [facility] 10-04-2023 09:58-0500 Heart rate 62 /min Dr. Khanh Rodriguez Work Phone: [facility] 10-04-2023 09:58-0500 Respiratory rate 16 /min Dr. Khanh Rodriguez Work Phone: [facility] 10-04-2023 09:58-0500 Systolic blood pressure 112 mm[Hg] Dr. Khanh Rodriguez Work Phone: [facility] 09-21-2023 15:37-0500 Body temperature 97.1 [degF] Dr. Khanh Rodriguez Work Phone: [facility] 09-21-2023 15:37-0500 Diastolic blood pressure 68 mm[Hg] Dr. Khanh Rodriguez Work Phone: [facility] 09-21-2023 15:37-0500 Heart rate 72 /min Dr. Khanh Rodriguez Work Phone: [facility] 09-21-2023 15:37-0500 Respiratory rate 16 /min Dr. Khanh Rodriguez Work Phone: [facility] 09-21-2023 15:37-0500 SaO2% (BldA) [Mass fraction] 98 % Dr. Khanh Rodriguez Work Phone: [facility] 09-21-2023 15:37-0500 Systolic blood pressure 121 mm[Hg] Dr. Khanh Rodriguez Work Phone: [facility] 08-30-2023 08:36-0500 Body temperature 96.8 [degF] Dr. Khanh Rodriguez Work Phone: [facility] 08-30-2023 08:36-0500 Diastolic blood pressure 66 mm[Hg] Dr. Khanh Rodriguez Work Phone: [facility] 08-30-2023 08:36-0500 Heart rate 63 /min Dr. Khanh Rodriguez Work Phone: [facility] 08-30-2023 08:36-0500 Respiratory rate 16 /min Dr. Khanh Rodriguez Work Phone: [facility] 08-30-2023 08:36-0500 Systolic blood pressure 135 mm[Hg] Dr. Khanh Rodriguez Work Phone: [facility] 08-02-2023 10:39-0500 Body temperature 96.8 [degF] Dr. Khanh Rodriguez Work Phone: [facility] 08-02-2023 10:39-0500 Diastolic blood pressure 77 mm[Hg] Dr. Khanh Rodriguez Work Phone: [facility] 08-02-2023 10:39-0500 Heart rate 74 /min Dr. Khanh Rodriguez Work Phone: [facility] 08-02-2023 10:39-0500 Respiratory rate 18 /min Dr. Khanh Rodriguez Work Phone: [facility] 08-02-2023 10:39-0500 Systolic blood pressure 150 mm[Hg] Dr. Khanh Rodriguez Work Phone: [facility] 07-24-2023 15:19-0500 Body height 160.[address] Khanh Rodriguez Work Phone: [facility] 07-24-2023 15:19-0500 Body mass index (BMI) [Ratio] 26.4 kg/m2 Dr. Khanh Rodriguez Work Phone: [facility] 07-24-2023 15:19-0500 Body temperature 98 [degF] Dr. Khanh Rodriguez Work Phone: [facility] 07-24-2023 15:19-0500 Body weight 67.[address] Khanh Rodriguez Work Phone: [facility] 07-24-2023 15:19-0500 Diastolic blood pressure 67 mm[Hg] Dr. Khanh Rodriguez Work Phone: [facility] 07-24-2023 15:19-0500 Heart rate 66 /min Dr. Khanh Rodriguez Work Phone: [facility] 07-24-2023 15:19-0500 Respiratory rate 18 /min Dr. Khanh Rodriguez Work Phone: [facility] 07-24-2023 15:19-0500 SaO2% (BldA) [Mass fraction] 98 % Dr. Khahn Rodriguez Work Phone: [facility] 07-24-2023 15:19-0500 Systolic blood pressure 120 mm[Hg] Dr. Khanh Rodriguez Work Phone: [facility] 07-20-2023 09:17-0500 Body mass index (BMI) [Ratio] 25.9 kg/m2 Dr. Khanh Rodriguez Work Phone: [facility] 07-20-2023 09:17-0500 Body temperature 97.2 [degF] Dr. Khanh Rodriguez Work Phone: [facility] 07-20-2023 09:17-0500 Body weight 66.[address] Khanh Rodriguez Work Phone: [facility] 07-20-2023 09:17-0500 Diastolic blood pressure 78 mm[Hg] Dr. Khanh Rodriguez Work Phone: [facility] 07-20-2023 09:17-0500 Heart rate 67 /min Dr. Khanh Rodriguez Work Phone: [facility] 07-20-2023 09:17-0500 Respiratory rate 16 /min Dr. Khanh Rodriguez Work Phone: [facility] 07-20-2023 09:17-0500 SaO2% (BldA) [Mass fraction] 97 % Dr. Khanh Rodriguez Work Phone: [facility] 07-20-2023 09:17-0500 Systolic blood pressure 126 mm[Hg] Dr. Khanh Rodriguez Work Phone: [facility] 07-10-2023 13:14-0500 Body mass index (BMI) [Ratio] 25.5 kg/m2 Dr. Khanh Rodriguez Work Phone: [facility] 07-10-2023 13:14-0500 Body temperature 98.2 [degF] Dr. Khanh Rodriguez Work Phone: [facility] 07-10-2023 13:14-0500 Body weight 65.[address] Khanh Rodriguez Work Phone: [facility] 07-10-2023 13:14-0500 Diastolic blood pressure 74 mm[Hg] Dr. Khanh Rodriguez Work Phone: [facility] 07-10-2023 13:14-0500 Heart rate 69 /min Dr. Khanh Rodriguez Work Phone: [facility] 07-10-2023 13:14-0500 Respiratory rate 18 /min Dr. Khanh Rodriguez Work Phone: [facility] 07-10-2023 13:14-0500 SaO2% (BldA) [Mass fraction] 98 % Dr. Khanh Rodriguez Work Phone: [facility] 07-10-2023 13:14-0500 Systolic blood pressure 132 mm[Hg] Dr. Khanh Rodriguez Work Phone: [facility] 06-28-2023 09:53-0400 Body temperature 97.1 [degF] Dr. Khanh Rodriguez Work Phone: [facility] 06-28-2023 09:53-0400 Diastolic blood pressure 72 mm[Hg] Dr. Khanh Rodriguez Work Phone: [facility] 06-28-2023 09:53-0400 Heart rate 76 /min Dr. Khanh Rodriguez Work Phone: [facility] 06-28-2023 09:53-0400 Respiratory rate 18 /min Dr. Khanh Rodriguez Work Phone: [facility] 06-28-2023 09:53-0400 Systolic blood pressure 135 mm[Hg] Dr. Khanh Rodriguez Work Phone: [facility] 06-13-2023 13:31-0400 Body temperature 98 [degF] Dr. Khanh Rodriguez Work Phone: [facility] 06-13-2023 13:31-0400 Diastolic blood pressure 62 mm[Hg] Dr. Khanh Rodriguez Work Phone: [facility] 06-13-2023 13:31-0400 Heart rate 74 /min Dr. Khanh Rodriguez Work Phone: [facility] 06-13-2023 13:31-0400 Respiratory rate 18 /min Dr. Khanh Rodriguez Work Phone: [facility] 06-13-2023 13:31-0400 SaO2% (BldA) [Mass fraction] 100 % Dr. Khanh Rodriguez Work Phone: [facility] 06-13-2023 13:31-0400 Systolic blood pressure 124 mm[Hg] Dr. Khanh Rodriguez Work Phone: [facility] 06-12-2023 15:51-0400 Body height 160.[address] Khanh Rodriguez Work Phone: [facility] 06-12-2023 15:51-0400 Body weight 68.[address] Khanh Rodriguez Work Phone: [facility] 06-12-2023 14:18-0400 Body mass index (BMI) [Ratio] 26.5 kg/m2 Dr. Khanh Rodriguez Work Phone: [facility] 06-12-2023 14:18-0400 Inhaled oxygen flow rate 2 L/min Dr. Khanh Rodriguez Work Phone: [facility] 05-31-2023 10:01-0400 Body temperature 96.7 [degF] Dr. Khanh Rodriguez Work Phone: [facility] 05-31-2023 10:01-0400 Diastolic blood pressure 50 mm[Hg] Dr. Khanh Rodriguez Work Phone: [facility] 05-31-2023 10:01-0400 Heart rate 63 /min Dr. Khanh Rodriguez Work Phone: [facility] 05-31-2023 10:01-0400 Respiratory rate 18 /min Dr. Khanh Rodriguez Work Phone: [facility] 05-31-2023 10:01-0400 Systolic blood pressure 125 mm[Hg] Dr. Khnah Rodriguez Work Phone: [facility] 05-24-2023 13:52-0400 Body height 162.[address] Khanh Rodriguez Work Phone: [facility] 05-24-2023 13:52-0400 Body mass index (BMI) [Ratio] 25.4 kg/m2 Dr. Khanh Rodriguez Work Phone: [facility] 05-24-2023 13:52-0400 Body temperature 97.6 [degF] Dr. Khanh Rodriguez Work Phone: [facility] 05-24-2023 13:52-0400 Body weight 67.[address] Khanh Rodriguez Work Phone: [facility] 05-24-2023 13:52-0400 Diastolic blood pressure 74 mm[Hg] Dr. Khanh Rodriguez Work Phone: [facility] 05-24-2023 13:52-0400 Heart rate 61 /min Dr. Khanh Rodriguez Work Phone: [facility] 05-24-2023 13:52-0400 Respiratory rate 16 /min Dr. Khanh Rodriguez Work Phone: [facility] 05-24-2023 13:52-0400 SaO2% (BldA) [Mass fraction] 97 % Dr. Khanh Rodriguez Work Phone: [facility] 05-24-2023 13:52-0400 Systolic blood pressure 116 mm[Hg] Dr. Khanh Rodriguez Work Phone: [facility] 05-15-2023 15:56-0400 Body height 162.[address] Khanh Rodriguez Work Phone: [facility] 05-15-2023 15:56-0400 Body mass index (BMI) [Ratio] 24.5 kg/m2 Dr. Khanh Rodriguez Work Phone: [facility] 05-15-2023 15:56-0400 Body temperature 96.8 [degF] Dr. Khanh Rodriguez Work Phone: [facility] 05-15-2023 15:56-0400 Body weight 64.[address] Khanh Rodriguez Work Phone: [facility] 05-15-2023 15:56-0400 Diastolic blood pressure 71 mm[Hg] Dr. Khanh Rodriguez Work Phone: [facility] 05-15-2023 15:56-0400 Heart rate 69 /min Dr. Khanh Rodriguez Work Phone: [facility] 05-15-2023 15:56-0400 Respiratory rate 17 /min Dr. Khanh Rodriguez Work Phone: [facility] 05-15-2023 15:56-0400 SaO2% (BldA) [Mass fraction] 99 % Dr. Khanh Rodriguez Work Phone: [facility] 05-15-2023 15:56-0400 Systolic blood pressure 119 mm[Hg] Dr. Khanh Rodriguez Work Phone: [facility] 05-03-2023 10:00-0400 Body temperature 97.8 [degF] Dr. Khanh Rodriguez Work Phone: [facility] 05-03-2023 10:00-0400 Body weight 65.[address] Khanh Rodriguez Work Phone: [facility] 05-03-2023 10:00-0400 Diastolic blood pressure 74 mm[Hg] Dr. Khanh Rodriguez Work Phone: [facility] 05-03-2023 10:00-0400 Heart rate 71 /min Dr. Khanh Rodriguez Work Phone: [facility] 05-03-2023 10:00-0400 Respiratory rate 16 /min Dr. Khanh Rodriguez Work Phone: [facility] 05-03-2023 10:00-0400 SaO2% (BldA) [Mass fraction] 100 % Dr. Khanh Rodriguez Work Phone: [facility] 05-03-2023 10:00-0400 Systolic blood pressure 129 mm[Hg] Dr. Khanh Rodriguez Work Phone: [facility] 04-26-2023 10:35-0400 Body height 162.[address] Khanh Rodriguez Work Phone: [facility] 04-26-2023 10:35-0400 Body mass index (BMI) [Ratio] 24.7 kg/m2 Dr. Khanh Rodriguez Work Phone: [facility] 04-26-2023 10:35-0400 Body temperature 95.9 [degF] Dr. Khanh Rodriguez Work Phone: [facility] 04-26-2023 10:35-0400 Body weight 65.[address] Khanh Rodriguez Work Phone: [facility] 04-26-2023 10:35-0400 Diastolic blood pressure 72 mm[Hg] Dr. Khanh Rodriguez Work Phone: [facility] 04-26-2023 10:35-0400 Heart rate 70 /min Dr. Khanh Rodriguez Work Phone: [facility] 04-26-2023 10:35-0400 Respiratory rate 18 /min Dr. Khanh Rodriguez Work Phone: [facility] 04-26-2023 10:35-0400 SaO2% (BldA) [Mass fraction] 99 % Dr. Khanh Rodriguez Work Phone: [facility] 04-26-2023 10:35-0400 Systolic blood pressure 138 mm[Hg] Dr. Khanh Rodriguez Work Phone: [facility] 04-19-2023 10:55-0400 Body mass index (BMI) [Ratio] 23.5 kg/m2 Dr. Khanh Rodriguez Work Phone: [facility] 04-19-2023 10:55-0400 Body temperature 96.9 [degF] Dr. Khanh Rodriguez Work Phone: [facility] 04-19-2023 10:55-0400 Diastolic blood pressure 65 mm[Hg] Dr. Khanh Rodriguez Work Phone: [facility] 04-19-2023 10:55-0400 Heart rate 63 /min Dr. Khanh Rodriguez Work Phone: [facility] 04-19-2023 10:55-0400 Respiratory rate 16 /min Dr. Khanh Rodriguez Work Phone: [facility] 04-19-2023 10:55-0400 Systolic blood pressure 120 mm[Hg] Dr. Khanh Rodriguez Work Phone: [facility] 04-04-2023 00:38-0400 Body weight 62.[address] Khanh Rodriguez Work Phone: [facility] 03-29-2023 11:11-0400 Body mass index (BMI) [Ratio] 23.5 kg/m2 Dr. Khanh Rodriguez Work Phone: [facility] 03-29-2023 11:11-0400 Body temperature 97 [degF] Dr. Khanh Rodriguez Work Phone: [facility] 03-29-2023 11:11-0400 Diastolic blood pressure 50 mm[Hg] Dr. Khanh Rodriguez Work Phone: [facility] 03-29-2023 11:11-0400 Heart rate 61 /min Dr. Khanh Rodriguez Work Phone: [facility] 03-29-2023 11:11-0400 Respiratory rate 18 /min Dr. Khanh Rodriguez Work Phone: [facility] 03-29-2023 11:11-0400 Systolic blood pressure 107 mm[Hg] Dr. Khanh Rodriguez Work Phone: [facility] 03-04-2023 01:35-0400 Body weight 62.[address] Khanh Rodriguez Work Phone: [facility] 03-01-2023 09:39-0400 Body mass index (BMI) [Ratio] 23.5 kg/m2 Dr. Khanh Rodriguez Work Phone: [facility] 03-01-2023 09:39-0400 Body temperature 97 [degF] Dr. Khanh Rodriguez Work Phone: [facility] 03-01-2023 09:39-0400 Diastolic blood pressure 65 mm[Hg] Dr. Khanh Rodriguez Work Phone: [facility] 03-01-2023 09:39-0400 Heart rate 65 /min Dr. Khanh Rodriguez Work Phone: [facility] 03-01-2023 09:39-0400 Respiratory rate 16 /min Dr. Khanh Rodriguez Work Phone: [facility] 03-01-2023 09:39-0400 Systolic blood pressure 109 mm[Hg] Dr. Khanh Rodriguez Work Phone: [facility] 02-02-2023 00:49-0400 Body weight 62.[address] Khanh Rodriguez Work Phone: [facility] 02-01-2023 11:13-0400 Body mass index (BMI) [Ratio] 23.5 kg/m2 Dr. Khanh Rodriguez Work Phone: [facility] 02-01-2023 11:13-0400 Body temperature 97.2 [degF] Dr. Khanh Rodriguez Work Phone: [facility] 02-01-2023 11:13-0400 Diastolic blood pressure 54 mm[Hg] Dr. Khanh Rodriguez Work Phone: [facility] 02-01-2023 11:13-0400 Heart rate 66 /min Dr. Khanh Rodriguez Work Phone: [facility] 02-01-2023 11:13-0400 Respiratory rate 16 /min Dr. Khanh Rodriguez Work Phone: [facility] 02-01-2023 11:13-0400 Systolic blood pressure 105 mm[Hg] Dr. Khanh Rodriguez Work Phone: [facility] 01-25-2023 09:15-0400 Body height 162.[address] Khanh Rodriguez Work Phone: [facility] 01-25-2023 09:15-0400 Body weight 62.[address] Khanh Rodriguez Work Phone: [facility] 01-20-2023 09:47-0400 Body mass index (BMI) [Ratio] 24.5 kg/m2 Dr. Khanh Rodriguez Work Phone: [facility] 01-20-2023 09:47-0400 Body temperature 97.3 [degF] Dr. Khanh Rodriguez Work Phone: [facility] 01-20-2023 09:47-0400 Body weight 64.[address] Khanh Rodriguez Work Phone: [facility] 01-20-2023 09:47-0400 Diastolic blood pressure 64 mm[Hg] Dr. Khanh Rodriguez Work Phone: [facility] 01-20-2023 09:47-0400 Heart rate 70 /min Dr. Khanh Rodriguez Work Phone: [facility] 01-20-2023 09:47-0400 Respiratory rate 18 /min Dr. Khanh Rodriguez Work Phone: [facility] 01-20-2023 09:47-0400 SaO2% (BldA) [Mass fraction] 98 % Dr. Khanh Rodriguez Work Phone: [facility] 01-20-2023 09:47-0400 Systolic blood pressure 114 mm[Hg] Dr. Khanh Rodriguez Work Phone: [facility] 05-31-2022 09:07-0400 Body height 162.56 cm No Primary Care Physician [facility] Work Phone: 05-31-2022 09:07-0400 Body mass index (BMI) [Ratio] 24.4 kg/m2 No Primary Care Physician [facility] Work Phone: 05-31-2022 09:07-0400 Body temperature 96.8 [degF] No Primary Care Physician [facility] Work Phone: 05-31-2022 09:07-0400 Body weight 64.52 kg No Primary Care Physician [facility] Work Phone: 05-31-2022 09:07-0400 Diastolic blood pressure 70 mm[Hg] No Primary Care Physician [facility] Work Phone: 05-31-2022 09:07-0400 Heart rate 71 /min No Primary Care Physician [facility] Work Phone: 05-31-2022 09:07-0400 Respiratory rate 18 /min No Primary Care Physician [facility] Work Phone: 05-31-2022 09:07-0400 SaO2% (BldA) [Mass fraction] 99 % No Primary Care Physician [facility] Work Phone: 05-31-2022 09:07-0400 Systolic blood pressure 130 mm[Hg] No Primary Care Physician [facility] Work Phone: 03-25-2022 09:16-0400 Body height 162.56 cm No Primary Care Physician [facility] Work Phone: 03-25-2022 09:16-0400 Body mass index (BMI) [Ratio] 23.1 kg/m2 No Primary Care Physician [facility] Work Phone: 03-25-2022 09:16-0400 Body temperature 97.2 [degF] No Primary Care Physician [facility] Work Phone: 03-25-2022 09:16-0400 Body weight 61.23 kg No Primary Care Physician [facility] Work Phone: 03-25-2022 09:16-0400 Diastolic blood pressure 70 mm[Hg] No Primary Care Physician [facility] Work Phone: 03-25-2022 09:16-0400 Heart rate 80 /min No Primary Care Physician [facility] Work Phone: 03-25-2022 09:16-0400 Respiratory rate 14 /min No Primary Care Physician [facility] Work Phone: 03-25-2022 09:16-0400 SaO2% (BldA) [Mass fraction] 97 % No Primary Care Physician [facility] Work Phone: 03-25-2022 09:16-0400 Systolic blood pressure 100 mm[Hg] No Primary Care Physician [facility] Work Phone: Encounters Encounter Date Encounter Type Care Provider Facility Start: 05-28-2025 End: 06-03-2025 Evaluation and management of inpatient KHANH RODRIGUEZ Facility:[facility] Start: 05-27-2025 End: 05-28-2025 ambulatory AMANDA SOTO Facility:[facility] Start: 05-27-2025 End: 05-27-2025 ambulatory NAYAN BLACKMON Facility:[facility] Start: 05-26-2025 ambulatory Efvalerioeligiobe Shue Facili ty:[facility] Start: 05-21-2025 ambulatory Efewongbe Shue Facili ty:[facility] Start: 05-21-2025 End: 05-21-2025 Patient encounter procedure Solo MARQUEZ -[facility] Work Phone: Start: 05-21-2025 End: 05-21-[address] Khanh Rodriguez MD Work Phone: -[facility] Start: 05-20-2025 End: 05-20-2025 ambulatory Amanda Soto PT Work Phone: [facility] Start: 05-20-2025 End: 05-20-2025 Patient encounter procedure Amanda Soto PT Work Phone: [facility] Comment on above: Venous stasis ulcer of calf with fat layer exposed, unspecified laterality, unspecified whether varicose veins present (HCC) (Primary Dx); Venous ulcer (HCC) Start: 05-13-2025 End: 05-13-[address] Khanh Rodriguez MD Work Phone: -[facility] Start: 05-13-2025 End: 05-13-2025 Patient encounter procedure Tracy MARQUEZ -[facility] Work Phone: Start: 05-13-2025 End: 05-13-2025 ambulatory Amanda Soto PT Work Phone: [facility] Start: 05-13-2025 End: 05-13-2025 Patient encounter procedure Amanda Stoddarda PT Work Phone: [facility] Comment on above: Venous ulcer (HCC) ( Primary Dx) Start: 05-13-2025 End: 05-13-2025 ambulatory Tracy Fulk Facility:[facility] Start: 05-10-2025 End: 05-10-2025 Transcribe Orders Tracy Lopez JIMMY Work Phone: Referring Physician Comment on above: Spinal stenosis of l umbar region with neurogenic claudication (Primary Dx); Low back pain, unspecified back pain laterality, unspecified chronicity, unspecified whether sciatica present Start: 05-08-2025 End: 05-08-[address] Jacob Amor MD -[facility] Start: 05-08-2025 End: 05-08-[address] Khanh Rodriguez MD Work Phone: -[facility] Start: 05-06-2025 End: 05-06-2025 ambulatory Amanda Soto PT Work Phone: [facility] Start: 05-06-2025 End: 05-06-2025 Patient encounter procedure Amanda Stoddarda PT Work Phone: [facility] Comment on above: Venous ulcer (HCC) ( Primary Dx) Start: 04-29-2025 End: 04-29-2025 Patient encounter procedure Liseth ABKER -[facility] Work Phone: Start: 04-29-2025 End: 04-29-[address] Khanh Rodriguez MD Work Phone: -[facility] Start: 04-28-2025 End: 04-28-2025 ambulatory Amanda Soto PT Work Phone: [facility] Start: 04-28-2025 End: 04-28-2025 Patient encounter procedure Amanda Soto PT Work Phone: [facility] Comment on above: Venous ulcer (HCC) ( Primary Dx) Start: 04-25-2025 End: 04-25-[address] Khanh Rodriguez MD -[facility] Out Work Phone: Start: 04-25-2025 End: 04-25-[address] Khanh Rodriguez MD Work Phone: -[facility] Start: 04-22-2025 End: 04-23-2025 ambulatory Amanda Soto PT Work Phone: [facility] Start: 04-22-2025 End: 04-22-2025 Patient encounter procedure Amanda Soto PT Work Phone: [facility] Comment on above: Venous ulcer (HCC) ( Primary Dx) Start: 04-15-2025 End: 04-16-2025 ambulatory Amanda Soto PT Work Phone: [facility] Start: 04-15-2025 End: 04-16-2025 Patient encounter procedure Amanda Soto PT Work Phone: [facility] Comment on above: Venous ulcer (HCC) ( Primary Dx) Start: 04-08-2025 End: 04-08-2025 ambulatory AMANDA STODDARDA Facility:[facility] Start: 04-01-2025 End: 04-01-2025 ambulatory Amanda Soto PT Work Phone: [facility] Start: 04-01-2025 End: 04-01-2025 Patient encounter procedure Amanda Soto PT Work Phone: [facility] Comment on above: Venous ulcer (HCC) ( Primary Dx) Start: 03-28-2025 End: 03-28-[address] Khanh Rodriguez MD -[facility] Work Phone: Start: 03-28-2025 End: 03-28-[address] Khanh Rodriguez MD Work Phone: -[facility] Start: 03-25-2025 End: 03-26-2025 ambulatory Amanda Soto PT Work Phone: [facility] Start: 03-25-2025 End: 03-26-2025 Patient encounter procedure Amanda Soto PT Work Phone: [facility] Comment on above: Venous ulcer (HCC) ( Primary Dx) Start: 03-19-2025 End: 03-19-2025 Patient encounter procedure Amanda Soto PT Work Phone: [facility] Comment on above: Venous ulcer (HCC) ( Primary Dx) Start: 03-19-2025 End: 03-19-2025 ambulatory Amanda Soto PT Work Phone: [facility] Start: 03-11-2025 End: 03-11-2025 ambulatory Amanda Soto PT Work Phone: [facility] Start: 03-11-2025 End: 03-11-2025 Patient encounter procedure Amanda Soto PT Work Phone: [facility] Comment on above: Venous ulcer (HCC) ( Primary Dx) Start: 03-04-2025 ambulatory Khanh [facility] Start: 03-03-2025 End: 03-03-2025 ambulatory Amanda Soto PT Work Phone: [facility] Start: 03-03-2025 End: 03-03-2025 Patient encounter procedure Amanda Soto PT Work Phone: [facility] Comment on above: Venous ulcer (HCC) ( Primary Dx) Start: 02-28-2025 End: 02-28-[address] Khanh Rodriguez MD -[facility] Work Phone: Start: 02-28-2025 End: 02-28-[address] Khanh Rodriguez MD Work Phone: -[facility] Start: 02-25-2025 End: 02-25-2025 ambulatory NAYAN BLACKMON Facility:[facility] Start: 02-25-2025 End: 02-25-2025 Patient encounter procedure Nayan Blackmon MD Work Phone: Plastic Surgery Comment on above: Pseudomonas aerugino sa infection (Primary Dx); Venous ulcer (HCC); Alcoholic cirrhosis of liver with ascites (HCC); Anxiety; Umbilical hernia without obstruction or gangrene Start: 02-24-2025 End: 02-24-2025 Patient encounter procedure Amanda Soto PT Work Phone: [facility] Comment on above: Venous ulcer (HCC) ( Primary Dx) Start: 02-24-2025 End: 02-24-2025 ambulatory Amanda Soto PT Work Phone: [facility] Start: 02-24-2025 End: 02-24-[address] Nayan Blackmon MD -[facility] Start: 02-24-[address] Nayan Blackmon MD -[facility] Start: 02-24-2025 End: 02-24-[address] Khanh Rodriguez MD Work Phone: -[facility] Start: 02-18-2025 End: 02-18-2025 Subsequent hospital visit by physician Chair [facility] Work Phone: Infusion Center Start: 02-18-2025 End: 02-18-2025 ambulatory KHANH RODRIGUEZ Facility:[facility] Start: 02-17-2025 End: 02-18-2025 Patient encounter procedure Amanda Soto PT Work Phone: [facility] Comment on above: Venous ulcer (HCC) ( Primary Dx) Start: 02-17-2025 End: 02-18-2025 ambulatory Amanda Soto PT Work Phone: [facility] Start: 02-17-2025 End: 02-17-2025 Telephone encounter Nayan Blackmon MD Work Phone: Plastic Surgery Comment on above: Patient Question Start: 02-11-2025 End: 02-11-2025 ambulatory NAYAN BLACKMON Facility:[facility] Start: 02-11-2025 End: 02-11-2025 Patient encounter procedure Nayan Blackmon MD Work Phone: Plastic Surgery Comment on above: Pseudomonas aerugino sa infection (Primary Dx); Venous ulcer (HCC); Alcoholic cirrhosis of liver with ascites (HCC); Anxiety Start: 02-11-2025 End: 02-25-2025 Telephone encounter Nayan Blackmon MD Work Phone: [facility] Comment on above: [employer] (FO R [facility] USE ONLY) Start: 02-10-2025 End: 02-10-2025 Patient encounter procedure Amanda Soto PT Work Phone: [facility] Comment on above: Venous ulcer (HCC) ( Primary Dx) Start: 02-10-2025 End: 02-10-2025 ambulatory Amanda Soto PT Work Phone: [facility] Start: 02-03-2025 End: 02-03-2025 Patient encounter procedure Amanda Soto PT Work Phone: [facility] Comment on above: Venous ulcer (HCC) ( Primary Dx) Start: 02-03-2025 End: 02-03-2025 ambulatory Amanda Soto PT Work Phone: [facility] Start: 01-31-2025 End: 01-31-[address] Khanh Rodriguez MD -[facility] Work Phone: Start: 01-31-2025 End: 01-31-[address] Khanh Rodriguez MD Work Phone: [facility] Work Phone: Start: 01-28-2025 End: 01-29-2025 ambulatory Amanda Soto PT Work Phone: [facility] Start: 01-28-2025 End: 01-28-2025 Patient encounter procedure Amanda Soto PT Work Phone: [facility] Comment on above: Venous ulcer of righ t lower extremity with varicose veins (HCC) (Primary Dx); Venous ulcer (HCC) Start: 01-23-2025 End: 01-23-[address] Nabeel Patel MD -[facility] Work Phone: Start: 01-23-2025 End: 01-23-2025 ambulatory Khanh Rodriguez Facility:[facility] Start: 01-23-[address] Fidel Patel MD -[facility] Start: 01-22-2025 End: 01-22-2025 Patient encounter procedure Solo MARQUEZ -[facility] Work Phone: Start: 01-22-2025 End: 01-22-[address] Khanh Rodriguez MD Work Phone: [facility] Work Phone: Start: 01-20-2025 End: 01-20-2025 ambulatory AMANDA SOTO Facility:[facility] Start: 01-13-2025 End: 01-13-2025 ambulatory Amanda Soto PT Work Phone: [facility] Start: 01-13-2025 End: 01-13-2025 Patient encounter procedure Amanda Soto PT Work Phone: [facility] Comment on above: Venous ulcer (HCC) ( Primary Dx) Start: 01-06-2025 End: 01-08-2025 Orders Only Gt Yin DO Work Phone: Vascular Surgery Comment on above: Venous ulcer (HCC) ( Primary Dx); Venous (peripheral) insufficiency; Secondary lymphedema Venous ulcer (HCC) ( Primary Dx) Start: 07-15-2024 ambulatory Khanh Rodriguez Facili :[facility] Start: 06-26-2024 End: 06-27-2024 ambulatory Amanda Stoddarda PT Work Phone: [facility] Start: 06-26-2024 End: 06-27-2024 Patient encounter procedure Amanda Soto PT Work Phone: [facility] Comment on above: Venous ulcer (HCC) ( Primary Dx); Venous (peripheral) insufficiency; Secondary lymphedema Start: 06-20-2024 Encounter for other preprocedural examination Yamile Glez [facility] Start: 06-18-2024 End: 06-18-2024 ambulatory Amanda Stoddarda PT Work Phone: [facility] Start: 06-18-2024 End: 06-18-2024 Patient encounter procedure Amanda Soto PT Work Phone: [facility] Comment on above: Venous ulcer (HCC) ( Primary Dx); Venous (peripheral) insufficiency; Secondary lymphedema Start: 06-17-2024 End: 06-17-2024 ambulatory [facility] Facility:[facility] Start: 06-14-2024 End: 06-14-2024 ambulatory [facility] Facility:[facility] Start: 06-12-2024 End: 06-12-2024 ambulatory Amanda Stoddarda PT Work Phone: [facility] Start: 06-12-2024 End: 06-12-2024 Patient encounter procedure Amanda Stoddarda PT Work Phone: [facility] Comment on above: Venous ulcer (HCC) ( Primary Dx); Venous (peripheral) insufficiency; Secondary lymphedema Start: 06-12-2024 End: 06-12-2024 Patient encounter procedure Monse Merlos PA-C Work Phone: [facility] [place] Comment on above: Degenerative scolios is (Primary Dx) Start: 06-12-2024 End: 06-12-2024 ambulatory [facility] Facility[facility] Start: 06-04-2024 End: 06-04-2024 ambulatory Amanda Soto PT Work Phone: [facility] Start: 06-04-2024 End: 06-04-2024 Patient encounter procedure Amanda Soto PT Work Phone: [facility] Comment on above: Venous ulcer (HCC) ( Primary Dx); Venous (peripheral) insufficiency; Secondary lymphedema Start: 05-31-2024 ambulatory Johny Davila Facility :[facility] Start: 05-31-2024 End: 05-31-2024 ambulatory Johny Sterling Facility:[facility] Start: 05-28-2024 End: 05-28-2024 ambulatory Amanda Soto PT Work Phone: [facility] Start: 05-28-2024 End: 05-28-2024 Patient encounter procedure Amanda Soto PT Work Phone: [facility] Comment on above: Venous ulcer (HCC) ( Primary Dx); Venous (peripheral) insufficiency; Secondary lymphedema Start: 05-21-2024 End: 05-21-2024 ambulatory Amanda Soto PT Work Phone: [facility] Start: 05-21-2024 End: 05-21-2024 Patient encounter procedure Amanda Soto PT Work Phone: [facility] Comment on above: Venous ulcer (HCC) ( Primary Dx); Venous (peripheral) insufficiency; Secondary lymphedema Start: 05-15-2024 End: 05-15-2024 Rosales Dickerson Work Phone: No Location Start: 05-15-2024 [facility] Start: 05-14-2024 End: 05-14-2024 Rosales Saldivarin Work Phone: No Location Start: 05-14-2024 [facility] Start: 05-14-2024 End: 05-14-2024 ambulatory Amanda Soto PT Work Phone: [facility] Start: 05-14-2024 End: 05-14-2024 Patient encounter procedure Amanda Soto PT Work Phone: [facility] Comment on above: Venous ulcer (HCC) ( Primary Dx); Venous (peripheral) insufficiency; Secondary lymphedema Start: 05-10-2024 End: 05-11-2024 ambulatory Amanda Soto PT Work Phone: [facility] Start: 05-10-2024 End: 05-11-2024 Patient encounter procedure Amanda Soto PT Work Phone: [facility] Comment on above: Venous ulcer (HCC) ( Primary Dx); Venous (peripheral) insufficiency; Secondary lymphedema Start: 05-08-2024 End: 05-09-2024 Telephone encounter Amanda Soto PT Work Phone: [facility] Comment on above: Appointment Start: 04-30-2024 End: 04-30-2024 ambulatory Amanda Soto PT Work Phone: [facility] Start: 04-30-2024 End: 04-30-2024 Patient encounter procedure Amanda Soto PT Work Phone: [facility] Comment on above: Venous ulcer (HCC) ( Primary Dx); Venous (peripheral) insufficiency; Secondary lymphedema Start: 04-30-2024 End: 04-30-2024 ambulatory Liseth O'Carlos PT [facility] Comment on above: Other malaise (Prima ry Dx) Start: 04-24-2024 End: 04-24-2024 ambulatory Amanda Soto PT Work Phone: [facility] Start: 04-24-2024 End: 04-24-2024 Patient encounter procedure Amanda Soto PT Work Phone: [facility] Comment on above: Venous ulcer (HCC) ( Primary Dx); Venous (peripheral) insufficiency; Secondary lymphedema Start: 04-23-2024 End: 04-23-2024 ambulatory Liseth O'Carlos PT [facility] Comment on above: Other malaise (Prima ry Dx) Start: 04-23-2024 End: 04-23-2024 ambulatory KHANH RODRIGUEZ Facility:[facility] Start: 04-23-2024 End: 04-23-2024 Patient encounter procedure Gt Yin DO Work Phone: Vascular Surgery Comment on above: Venous ulcer (HCC) ( Primary Dx); Venous (peripheral) insufficiency Start: 04-16-2024 End: 04-16-2024 ambulatory Amanda Soto PT Work Phone: [facility] Start: 04-16-2024 End: 04-16-2024 Patient encounter procedure Amanda Charles PT Work Phone: [facility] Comment on above: Venous ulcer (HCC) ( Primary Dx); Venous (peripheral) insufficiency; Secondary lymphedema Start: 04-16-2024 End: 04-16-2024 ambulatory Liseth Alanis PT [facility] Comment on above: Other malaise (Prima ry Dx) Start: 04-10-2024 End: 04-10-2024 ambulatory Amanda Soto PT Work Phone: [facility] Start: 04-10-2024 End: 04-10-2024 Patient encounter procedure Amanda Charles PT Work Phone: [facility] Comment on above: Venous ulcer (HCC) ( Primary Dx); Venous (peripheral) insufficiency; Secondary lymphedema Start: 04-04-2024 End: 04-04-2024 ambulatory Amanda Charles PT Work Phone: [facility] Start: 04-04-2024 End: 04-04-2024 Patient encounter procedure Amanda Charles PT Work Phone: [facility] Comment on above: Venous ulcer (HCC) ( Primary Dx); Venous (peripheral) insufficiency; Secondary lymphedema Start: 04-03-2024 End: 04-03-2024 ambulatory KHANH RODRIGUEZ Facility:[facility] Start: 04-03-2024 End: 04-03-2024 Patient encounter procedure [facility] Work Phone: Vasculary Surgery Comment on above: Venous (peripheral) insufficiency; Symptomatic varicose veins of both lower extremities Start: 04-02-2024 End: 04-02-2024 ambulatory KHANH RODRIGUEZ Facility:[facility] Start: 04-02-2024 End: 04-02-2024 Patient encounter procedure Marisela Mccarty MD Work Phone: Orthopaedics Comment on above: S/P hip hemiarthropl asty (Primary Dx); Degenerative scoliosis Start: 04-02-2024 End: 04-02-2024 Subsequent hospital visit by physician [employer] [place] [facility] Work Phone: Radiology Comment on above: Pain in left hip [M2 5.552] Start: 04-01-2024 End: 04-01-2024 ambulatory Liseth O'Carlos PT [facility] Comment on above: Other malaise (Prima ry Dx) Start: 03-26-2024 End: 03-26-2024 ambulatory Amanda Soto PT Work Phone: [facility] Start: 03-26-2024 End: 03-26-2024 Patient encounter procedure Amanda Stoddarda PT Work Phone: [facility] Comment on above: Venous [...] 03-19-2024 ambulatory Amanda Soto PT Work Phone: [facility] Start: 03-19-2024 End: 03-19-2024 Patient encounter procedure Amanda Stoddarda PT Work Phone: [facility] Comment on above: Venous ulcer (HCC) ( Primary Dx); Venous (peripheral) insufficiency; Secondary lymphedema Start: 03-13-2024 End: 03-14-2024 ambulatory Liseth O'Carlos PT [facility] Comment on above: Other malaise (Prima ry Dx) Start: 03-12-2024 End: 03-12-2024 ambulatory Amanda Soto PT Work Phone: [facility] Start: 03-12-2024 End: 03-12-2024 Patient encounter procedure Amanda Soto PT Work Phone: [facility] Comment on above: Venous ulcer (HCC) ( Primary Dx); Venous (peripheral) insufficiency; Secondary lymphedema Start: 02-29-2024 End: 02-29-2024 ambulatory Amanda Soto PT Work Phone: [facility] Start: 02-29-2024 End: 02-29-2024 Patient encounter procedure Amanda Soto PT Work Phone: [facility] Comment on above: Venous ulcer (HCC); Venous (peripheral) insufficiency; Secondary lymphedema Start: 02-27-2024 End: 02-27-2024 ambulatory KHANH RODRIGUEZ Facility:[facility] Start: 02-27-2024 End: 02-27-2024 Patient encounter [...] 01-05-[address] Khanh Rodriguez Work Phone: [facility] Work Phone: Start: 01-05-2024 End: 01-05-[address] Khanh Rodriguez Work Phone: [facility]-Laboratory, [facility] Start: 01-05-2024 End: 01-05-[address] Khanh Rodriguez Work Phone: [facility] Work Phone: Start: 12-30-2023 End: 12-30-2023 Rosales Dickerson Work Phone: No Location Start: 12-30-2023 ambulatory Rosales T[facility] Start: 12-30-2023 Non-patient / Non-visit Dr. Sukhdev Rodriguez Work Phone: [facility] Work Phone: Start: 12-29-2023 Non-patient / Non-visit Dr. Sukhdev Rodriguez Work Phone: [facility] Start: 12-29-2023 Non-patient / Non-visit Dr. Sukhdev Rodriguez Work Phone: [facility] Work Phone: Start: 12-28-2023 Non-patient / Non-visit Dr. Sukhdev Rodriguez Work Phone: [facility] Start: 12-28-2023 Non-patient / Non-visit Dr. Sukhdev Rodriguez Work Phone: [facility] Work Phone: Start: 12-27-2023 End: 12-27-2023 Rosales Dickerson Work Phone: No Location Start: 12-27-2023 Non-patient / Non-visit Dr. Sukhdev Rodriguez Work Phone: [facility] Work Phone: Start: 12-27-2023 ambulatory [facility] Start: 12-27-2023 End: 12-30-2023 Evaluation and management of inpatient Dr. Khanh Rodriguez Work Phone: [facility]-Progressive Care Unit Work Phone: Start: 11-29-2023 Non-patient / Non-visit Dr. Sukhdev Rodriguez Work Phone: [facility] Start: 11-29-2023 End: 12-03-[address] Khanh Rodriguez Work Phone: [facility] Work Phone: Start: 11-29-2023 End: 12-03-[address] [facility] Work [facility]: Start: 11-22-2023 Non-patient / Non-visit Dr. Sukhdev Rodriguez Work Phone: [facility] Start: 11-16-2023 Non-patient / Non-visit Dr. Sukhdev Rodriguez Work Phone: [facility] Start: 11-15-2023 End: 11-15-[address] Khanh Rodriguez Work Phone: [facility] Work Phone: Start: 11-15-2023 End: 11-15-[address] Khanh Rodriguez Work Phone: [facility]-Laboratory, [facility] Start: 11-15-2023 End: 11-15-[address] Khanh Rodriguez Work Phone: [facility] Work Phone: Start: 11-15-2023 Non-patient / Non-visit Dr. Sukhdev Rodriguez Work Phone: After Hours [facility] Start: 11-15-[address] Nigel Rodriguez [facility] Work [facility]: Start: 11-14-2023 End: 11-14-[address] Khanh Rodriguez Work Phone: [facility] Work Phone: Start: 11-14-2023 End: 11-14-[address] Khanh Rodriguez Work Phone: [facility]-Cardiovascul ar Services Work Phone: Start: 11-14-2023 Non-patient / Non-visit Dr. Sukhdev Rodriguez Work Phone: [facility] Start: 11-03-2023 End: 11-03-[address] Khanh Rodriguez Work Phone: [facility] Work Phone: Start: 11-03-2023 End: 11-03-[address] Khanh Rodriguez Work Phone: [facility] Work Phone: Start: 11-02-2023 Non-patient / Non-visit Dr. Sukhdev Rodriguez Work Phone: [facility] Start: 11-02-2023 End: 11-02-[address] Khanh Rodriguez Work Phone: [facility] Work Phone: Start: 11-02-2023 End: 11-02-[address] Khanh Rodriguez Work Phone: [facility] Vascular Surgery Work Phone: Start: 11-01-2023 Non-patient / Non-visit Dr. Sukhdev Rodriguez Work Phone: [facility] Start: 11-01-2023 End: 11-02-[address] Khanh Rodriguez Work Phone: [facility] Work Phone: Start: 11-01-2023 End: 11-02-[address] Khanh [facility] Work [facility]: Start: 10-26-2023 Non-patient / Non-visit Dr. Sukhdev Rodriguez Work Phone: [facility] Start: 10-26-2023 End: 10-26-2023 Admission to same day surgery center Dr. Khanh Rodriguez Work Phone: [facility]-Pi/Senior Research Associate/Special Procedures Work Phone: Start: 10-26-2023 End: 10-26-[address] Khanh Rodriguez Work Phone: [facility] Work Phone: Start: 10-25-2023 Non-patient / Non-visit Dr. Sukhdev Rodriguez Work Phone: [facility] Start: 10-25-[address] Nigel Rodriguez [facility] Work Phone: Start: 10-20-2023 Non-patient / Non-visit Dr. Sukhdev Rodriguez Work Phone: [facility] Start: 10-20-2023 End: 10-20-[address] Khanh Rodriguez Work Phone: [facility] Work Phone: Start: 10-20-2023 End: 10-20-[address] Khanh Rodriguez [facility] Work Phone: Start: 10-18-[address] Nigel Rodriguez [facility] Work Phone: Start: 10-13-2023 Non-patient / Non-visit Dr. Sukhdev Rodriguez Work Phone: [facility] [facility] Start: 10-13-2023 End: 10-13-[address] Khanh Rodriguez Work Phone: [facility] Work Phone: Start: 10-13-2023 End: 10-13-[address] Khanh Rodriguez [facility] Work Phone: Start: 10-11-2023 Non-patient / Non-visit Dr. Sukhdev Rodriguez Work Phone: After Hours [facility] Start: 10-04-2023 Non-patient / Non-visit Dr. Sukhdev Rodriguez Work Phone: After Hours [facility] Start: 10-04-2023 End: 10-04-[address] Khanh Rodriguez Work Phone: [facility] Work Phone: Start: 10-04-2023 End: 10-04-[address] Khanh Rodriguez Work Phone: [facility] Work Phone: Start: 09-27-2023 Non-patient / Non-visit Dr. Sukhdev Rodriguez Work Phone: After Hours Family Medicine[facility] Start: 09-21-2023 End: 09-21-[address] Khanh Rodriguez Work Phone: [facility] Vascular Surgery Work Phone: Start: 09-13-2023 Non-patient / Non-visit Dr. Sukhdev Rodriguez Work Phone: After Hours Family [facility] Start: 08-30-2023 Non-patient / Non-visit Dr. Sukhdev Rodriguez Work Phone: After Hours Family [facility] Start: 08-30-2023 End: 09-03-[address] Khanh Rodriguez Work Phone: [facility] Work Phone: Start: 08-23-2023 Non-patient / Non-visit Dr. Sukhdev Rodriguez Work Phone: After Hours [facility] Start: 08-16-2023 Non-patient / Non-visit Dr. Sukhdev Rodriguez Work Phone: After Hours [facility] Start: 08-02-2023 End: 08-03-[address] Khanh Rodriguez Work Phone: [facility] Work Phone: Start: 07-26-2023 Non-patient / Non-visit Dr. Sukhdev Rodriguez Work Phone: After Hours Family [facility] Start: 07-24-2023 End: 07-24-[address] Khanh Rodriguez Work Phone: [facility] Work Phone: Start: 07-20-2023 End: 07-20-[address] Khanh Rodriguez Work Phone: [facility] Work Phone: Start: 07-12-2023 Non-patient / Non-visit Dr. Sukhdev Rodriguez Work Phone: [facility] Start: 07-10-[address] Nigel Rodriguez [facility] Start: 07-10-2023 End: 07-10-[address] Khanh Rodriguez Work Phone: [facility] Work Phone: Start: 07-05-2023 Non-patient / Non-visit Dr. Sukhdev Rodriguez Work Phone: After Hours [facility] Medicine[facility] Start: 06-28-2023 Non-patient / Non-visit Dr. Sukhdev Rodriguez Work Phone: [facility] Start: 06-28-2023 End: 07-04-[address] Khanh Rodriguez Work Phone: [facility] Work Phone: Start: 06-28-2023 End: 07-04-[address] Khanh Rodriguez [facility] Work Phone: Start: 06-28-2023 End: 06-28-[address] Khanh Rodriguez Work Phone: [facility] Work Phone: Start: 06-21-2023 Non-patient / Non-visit Dr. Sukhdev Rodriguez Work Phone: After Hours [facility] Start: 06-21-2023 End: 06-21-[address] Khanh Rodriguez Work Phone: [facility] Work Phone: Start: 06-19-2023 End: 06-19-[address] Khanh Rodriguez Work Phone: [facility] Work Phone: Start: 06-14-2023 Non-patient / Non-visit Dr. Sukhdev Rodriguez Work Phone: After Hours [facility] Start: 06-13-2023 Non-patient / Non-visit Dr. Sukhdev Rodriguez Work Phone: [facility] Start: 06-12-2023 End: 06-12-2023 Rosalesraf Dickerson Work Phone: No Location Start: 06-12-2023 Non-patient / Non-visit Dr. Sukhdev Rodriguez Work Phone: [facility] Start: 06-12-2023 [facility] Start: 06-12-2023 End: 06-13-2023 Evaluation and management of inpatient Dr. Khanh Rodriguez [facility] Phone[facility] Work Phone: Start: 06-08-2023 End: 06-08-2023 Non-patient / Non-visit Dr. Khanh Rodriguez Work Phone: [facility] Work Phone: Start: 06-05-2023 End: 06-05-[address] Khanh Rodriguez Work Phone: [facility] Work Phone: Start: 05-31-2023 End: 05-31-[address] Khanh Rodriguez Work Phone: [facility] Work Phone: Start: 05-31-2023 End: 05-31-[address] Khanh Rodriguez Work Phone: [facility] Work Phone: Start: 05-31-2023 Non-patient / Non-visit Dr. Sukhdev Rodriguez Work Phone: After Hours [facility] Start: 05-31-2023 End: 06-03-[address] Khanh Rodriguez Work Phone: [facility] Work Phone: Start: 05-29-2023 End: 05-29-[address] Khanh Rodriguez Work Phone: [facility]-Outpatient Pavilion Ultrasound Work Phone: Start: 05-24-[address] Nigel Rodriguez Work Phone: [facility] Oncology Start: 05-24-2023 End: 05-24-[address] Khanh Rodriguez Work Phone: [facility] Work Phone: Start: 05-23-2023 Non-patient / Non-visit Dr. Sukhdev Rodriguez Work Phone: After Hours [facility] Start: 05-16-2023 End: 05-16-[address] Khanh Rodriguez Work Phone: [facility] Work Phone: Start: 05-16-2023 End: 05-16-[address] Khanh Rodriguez Work Phone: [facility]-Laboratory, Specimen Work Phone: Start: 05-15-2023 End: 05-15-[address] Khanh Rodriguez Work Phone: [facility] Work Phone: Start: 05-10-2023 End: 05-10-[address] Khanh Rodriguez Work Phone: [facility] Work Phone: Start: 05-10-2023 End: 05-10-[address] Khanh Rodriguez Work Phone: [facility]-Outpatient Breast Imaging Work Phone: Start: 05-08-2023 Non-patient / Non-visit Dr. Suhkdev Rodriguez Work Phone: [facility] Start: 05-03-2023 End: 05-03-[address] Khanh Rodriguez Work Phone: [facility] Work Phone: Start: 05-03-2023 End: 05-03-[address] Khanh Rodriguez Work Phone: [facility]-Laboratory, BIM Start: 05-03-2023 End: 05-03-[address] Khanh Rodriguez Work Phone: [facility] Work Phone: Start: 04-26-[address] Gloria Rodriguez Work Phone: [facility] Start: 04-26-2023 End: 04-26-[address] Khanh Rodriguez Work Phone: [facility] Work Phone: Start: 04-26-2023 End: 04-26-2023 Emergency department patient visit Dr. Khanh Rodriguez Work Phone: [facility] Start: 04-26-2023 End: 04-26-[address] Khanh Rodriguez Work Phone: [facility] Internal Medicine Work Phone: Start: 04-19-2023 Non-patient / Non-visit Dr. Sukhdev Rodriguez Work Phone: After Hours [facility] Start: 04-19-2023 End: 05-01-[address] Khanh Rodriguez Work Phone: [facility] Work Phone: Start: 04-19-2023 End: 05-01-[address] Khanh Rodriguez Work Phone: [facility] Work Phone: Start: 04-19-[address] Nigel Rodriguez Work Phone: [facility] Work Phone: Start: 03-29-2023 Non-patient / Non-visit Dr. Sukhdev Rodriguez Work Phone: After Hours [facility] Start: 03-29-2023 End: 04-03-[address] Khanh Rodriguez Work Phone: [facility] Work Phone: Start: 03-29-2023 End: 04-03-[address] Khanh Rodriguez Work Phone: [facility] Work Phone: Start: 03-22-2023 Non-patient / Non-visit Dr. Sukhdev Rodriguez Work Phone: After Hours Family [facility] Start: 03-15-2023 Non-patient / Non-visit Dr. Sukhdev Rodriguez Work Phone: After Hours Family Medicine[facility] Start: 03-01-2023 Non-patient / Non-visit Dr. Sukhdev Rodriguez Work Phone: After Hours Family Medicine[facility] Start: 03-01-2023 End: 03-03-[address] Khanh Rodriguez Work Phone: [facility] Work Phone: Start: 03-01-2023 End: 03-03-[address] Khanh Rodriguez [facility] Work Phone: Start: 02-22-2023 Non-patient / Non-visit Dr. Sukhdev Rodriguez Work Phone: After Hours [facility] Medicine[facility] Start: 02-15-2023 Non-patient / Non-visit Dr. Sukhdev Rodriguez Work Phone: After Hours [facility] Start: 02-08-2023 End: 02-08-[address] Khanh Rodriguez Work Phone: [facility] Work Phone: Start: 02-08-2023 Non-patient / Non-visit Dr. Sukhdev Rodriguez Work Phone: After Hours Family Medicine[facility] Start: 02-01-2023 Non-patient / Non-visit Dr. Sukhdev Rodriguez Work Phone: [facility] Start: 02-01-2023 End: 02-01-[address] Khanh Rodriguez Work Phone: [facility] Work Phone: Start: 02-01-2023 End: 02-01-[address] Khanh Rodriguez [facility] Start: 01-25-2023 Non-patient / Non-visit Dr. Sukhdev Rodriguez Work Phone: [facility] Start: 01-20-2023 End: 01-20-[address] Khanh Rodriguez Work Phone: [facility] Work Phone: Start: 01-20-2023 End: 01-20-[address] Khanh Rodriguez Work Phone: [facility] Internal Medicine Start: 10-18-2022 Orders Only Yoseph macias MD Work Phone: Orthopaedics Comment on above: Pain (Primary Dx) Start: 05-31-2022 End: 05-31-2022 ambulatory No Primary Care Physician [facility] Work Phone: Start: 05-31-2022 End: 05-31-2022 Patient encounter procedure No Primary Care Physician [facility] Internal Medicine Start: 04-28-2022 End: 04-28-2022 ambulatory No Primary Care Physician [facility] Work Phone: Start: 04-28-2022 End: 04-28-2022 Discharged Recurring No Primary Care Physician [facility]-Physical Therapy Start: 04-28-2022 Registered Recurring No Primar y Care Physician [facility]-Physical Therapy Start: 04-13-2022 Registered Recurring No Primar y Care Physician [facility]-Physical Therapy Start: 04-11-2022 End: 04-11-2022 Patient encounter procedure No Primary Care Physician [facility] Internal Medicine Start: 04-06-2022 End: 04-06-2022 Discharged Recurring No Primary Care Physician [facility]-Physical Therapy Start: 04-06-2022 Registered Recurring No Primar y Care Physician [facility]-Physical Therapy Start: 03-31-2022 End: 03-31-2022 Patient encounter procedure No Primary Care Physician [facility]-Outpatient Bone Densitometry Start: 03-25-2022 End: 03-25-2022 Patient encounter procedure No Primary Care Physician [facility] [facility] Start: 02-16-2022 End: 02-16-2022 Patient encounter procedure [facility]-Laboratory, Specimen Start: 10-26-2021 End: 10-26-2021 Juve Dickerson Work Phone: [facility] Start: 07-05-2021 End: 07-05-2021 Rosales Dickerson Work Phone: [facility] Start: 05-11-2021 End: 05-11-2021 Office outpatient visit 15 minutes Ihsan Franks Work Phone: [facility] Start: 04-15-2021 End: 04-15-2021 Office outpatient visit 15 minutes Charlotte Avery Work Phone: [facility] Start: 01-29-2021 End: 01-29-2021 Rosales Dickerson Work Phone: [employer] [facility] Start: 01-04-2021 End: 01-04-2021 Rosales Dickerson Work Phone: [employer] [facility] Start: 05-28-2020 End: 05-28-2020 Encounter for general adult medical examination without abnormal findings Delores Faria Work Phone: [facility] Start: 05-28-2020 End: 05-28-2020 Office outpatient visit 15 minutes Delores Faria Work Phone: [employer] [facility] Start: 02-03-2020 End: 02-03-2020 Subsequent hospital visit by physician Dipak Newby Work Phone: [facility] Comment on above: Arrived Start: 01-20-2020 End: 01-20-2020 Subsequent hospital visit by physician Dipak Newby Work Phone: [facility] Comment on above: Arrived Start: 01-14-2020 End: 01-14-2020 Subsequent hospital visit by physician Dipak Newby Work Phone: [facility] Comment on above: Arrived Start: 01-13-2020 End: 01-13-2020 Delores Faria Work Phone: [facility] Start: 01-13-2020 End: 01-13-2020 Office outpatient visit 25 minutes Deloresrosaline Faria Work Phone: [facility] Start: 01-07-2020 End: 01-07-2020 Subsequent hospital visit by physician Dipak Newby Work Phone: [facility] Comment on above: Arrived Start: 12-23-2019 End: 12-23-2019 Subsequent hospital visit by physician Dipak Newby Work Phone: [facility] Start: 12-23-2019 End: 12-23-2019 Subsequent hospital visit by physician Dipak Newby Work Phone: [facility] Comment on above: Arrived Start: 06-24-2019 End: 06-24-2019 Abdirahman Haysi Work Phone: No Location Start: 05-29-2019 End: 05-29-2019 Abdirahman Haysi Work Phone: [employer] Start: 05-27-2019 End: 05-27-2019 Encounter for general adult medical examination without abnormal findings Abdirahman Jarvis Work Phone: [facility] ED01 [facility] Start: 05-27-2019 End: 05-27-2019 Office outpatient visit 25 minutes Abdirahman Jarvis Work Phone: [facility] Start: 05-17-2019 End: 05-17-2019 Delores Brauch Work Phone: [facility] Start: 01-29-2019 End: 01-29-2019 Office outpatient visit 25 minutes Abdirahman Jarvis Work Phone: [facility] Start: 06-11-2018 End: 06-11-2018 Gregorio Rodrigues Work Phone: [facility] Start: 05-23-2018 End: 05-23-2018 Encounter for general adult medical examination without abnormal findings Abdirahman Haysi Work Phone: [employer] Work Phone: Start: 05-23-2018 End: 05-23-2018 Office outpatient visit 15 minutes Abdirahman Conley Work Phone: [employer] Start: 04-10-2018 End: 04-10-2018 Office outpatient new 30 minutes Abdirahman Conley Work Phone: [employer] Start: 08-16-2017 End: 08-16-2017 Ambulatory [facility] Encounter for genera l adult medical examination without abnormal findings Juve Dickerson MD [facility] ED01 [employer] Procedures Date Procedure Procedure Detail Performing [...] 03-31-2022 Dual energy X-ray absorptiometry No Prim [facility] Physician Start: 05-11-2021 End: 05-11-2021 BP scrn [...] 05-28-2020 End: 05-28-2020 Docrev cur meds by kaylag clin Juve Dickerson MD Start: 05-28-2020 End: 05-28-2020 [...] Start: 01-14-2020 WOUND CENTER TREATMENT NOTE Dipak castro Work Phone: Start: 01-13-2020 End: 01-13-2020 Collection [...] Start: 12-23-2019 WOUND CENTER TREATMENT NOTE Dipak castro Work Phone: Start: 05-27-2019 End: 05-27-2019 BP [...] 05-23-2018 End: 05-23-2018 Docrev cur meds by elig clin Juve Dickerson MD Start: 05-23-2018 End: 05-23-2018 [...] 1996 panel - Serum or Plasma Beatriz Luna'Carlos PT Start: 09-15-2008 Colonoscopy Yoseph Briones MD Work Phone: Anaerobic microbial culture Anaerobic microbial culture Dr. Khanh Rodriguez Work Phone: Investigation of tra nsfusion reaction Microbial culture, routine Microbial culture, routine D matt Rodriguez Work Phone: Plan of Treatment Date Care Activity Detail Author Start: 04-25-2031 Urine microalbumin profile DTa P,Tdap,Td Vaccine (2 - Td or Tdap) [facility] Start: 06-04-2025 End: 06-04-2025 Patient encounter procedure 06/04/2025 3:00 PM EDT Office Visit Vascular Surgery [address] [address] Gt Yin DO [address] [address] Venous ulcer [I83.009, L97.909] Vascular Surgery Comment on above: Venous ulcer [I83.00 9, L97.909] Start: 06-03-2025 End: 06-03-2025 ambulatory 06/03/2025 1:30 PM EDT OT/PT/Speech Visit [facility] [address] [place] [address] Darrius Newton, PT [address] [place] [address] Spinal stenosis of lumbar region with neurogenic claudication [M48.062] [facility] Comment on above: Spinal stenosis of l umbar region with neurogenic claudication [M48.062] Start: 06-03-2025 End: 06-03-2025 Patient encounter procedure 06/03/2025 10:30 AM EDT OT/PT/Speech Visit [facility] [address] [place] [address] Amanda Soto, PT [address] [place] [address] Venous ulcer [I83.009, L97.909] [facility] Comment on above: Venous ulcer [I83.00 9, L97.909] Start: 05-27-2025 End: 05-27-2025 Patient encounter procedure 05/27/2025 2:50 PM EDT Office Visit Plastic Surgery [address] [place] [address] Nayan Blackmon MD [address] [address] f/u drainage of venous ulcer-Amanda Soto referring Plastic Surgery Comment on above: f/u drainage of veno us ulcer-Amanda Soto referring Start: 05-27-2025 End: 05-27-2025 Patient encounter procedure 05/27/2025 10:30 AM EDT OT/PT/Speech Visit [facility] [address] [place] [address] Amanda Soto, PT [address] [place] [address] Venous ulcer [I83.009, L97.909] [facility] Comment on above: Venous ulcer [I83.00 9, L97.909] Start: 05-21-2025 Thyroid stimulating hormone measurement [facility] Start: 05-20-2025 End: 05-20-2025 Patient encounter procedure 05/20/2025 10:30 AM EDT OT/PT/Speech Visit [facility] [address] [place] [address] Amanda Soto, PT [address] [place] [address] Venous ulcer [I83.009, L97.909] [facility] Comment on above: Venous ulcer [I83.00 9, L97.909] Start: 05-13-2025 End: 05-13-2025 Patient encounter procedure 05/13/2025 10:30 AM EDT OT/PT/Speech Visit [facility] [address] [place] [address] Amanda Soto, PT [address] [place] [address] Venous ulcer [I83.009, L97.909] [facility] Comment on above: Venous ulcer [I83.00 9, L97.909] Start: 05-08-2025 X-ray of lumbosacral spine L/S Spine Min 4 Views [facility] Start: 05-08-2025 XR Spine Lumbar and Sacrum GE 4 Views [facility] Start: 05-06-2025 End: 05-06-2025 Patient encounter procedure 05/06/2025 10:30 AM EDT OT/PT/Speech Visit [facility] [address] [place] [address] Amanda Soto, PT [address] [place] [address] Venous ulcer [I83.009, L97.909] [facility] Comment on above: Venous ulcer [I83.00 9, L97.909] Start: 05-05-2025 Influenza vaccination C [facility] Start: 04-29-2025 Prothrombin time [facility] Start: 04-29-2025 [facility] Start: 04-29-2025 End: 04-29-2025 Patient encounter procedure 04/29/2025 10:30 AM EDT OT/PT/Speech Visit [facility] [address] [place] [address] Amanda Soto, PT [address] [place] [address] Venous ulcer [I83.009, L97.905] [facility] Comment on above: Venous ulcer [I83.00 9, L97.909] Start: 04-28-2025 End: 04-28-2025 Patient encounter procedure 04/28/2025 9:30 AM EDT OT/PT/Speech Visit [facility] [address] [place] [address] Amanda Soto, PT [address] [place] [address] Venous ulcer [I83.009, L97.909] [facility] Comment on above: Venous ulcer [I83.00 9, L97.909] Start: 04-22-2025 End: 04-22-2025 Patient encounter procedure 04/22/2025 10:30 AM EDT OT/PT/Speech Visit [facility] [address] [place] [address] Amanda Soto, PT [address] [place] [address] Venous ulcer [I83.009, L97.909] [facility] Comment on above: Venous ulcer [I83.00 9, L97.909] Start: 04-15-2025 End: 04-15-2025 Patient encounter procedure 04/15/2025 10:30 AM EDT OT/PT/Speech Visit [facility] [address] [place] [address] Amanda Soto, PT [address] [place] [address] Venous ulcer [I83.009, L97.909] [facility] Comment on above: Venous ulcer [I83.00 9, L97.909] Start: 04-08-2025 End: 04-08-2025 Patient encounter procedure Plastic Surgery Comment on above: Right Lower Lateral leg Venous ulcer [I83.00 9, L97.909] Start: 04-01-2025 End: 04-01-2025 Patient encounter procedure 04/01/2025 10:30 AM EDT OT/PT/Speech Visit [facility] [address] [place] [address] Amanda Soto, PT [address] [place] [address] Venous ulcer [I83.009, L97.909] [facility] Comment on above: Venous ulcer [I83.00 9, L97.909] Start: 03-25-2025 End: 03-25-2025 Patient encounter procedure 03/25/2025 10:30 AM EDT OT/PT/Speech Visit [facility] [address] [place] [address] Amanda Soto, PT [address] [place] [address] Venous ulcer [I83.009, L97.909] [facility] Comment on above: Venous ulcer [I83.00 9, L97.909] Start: 03-18-2025 End: 03-18-2025 Patient encounter procedure Plastic Surgery Comment on above: Right Lower Lateral leg Venous ulcer [I83.00 9, L97.909] Start: 03-18-2025 End: 03-18-2025 Patient encounter procedure 03/18/2025 10:30 AM EDT OT/PT/Speech Visit [facility] [address] [place] [address] Amanda Soto, PT [address] [place] [address] Venous ulcer [I83.009, L97.909] [facility] Comment on above: Venous ulcer [I83.00 9, L97.909] Start: 03-11-2025 End: 03-11-2025 Patient encounter procedure 03/11/2025 10:30 AM EDT OT/PT/Speech Visit [facility] [address] [place] [address] Amanda Soto, PT [address] [place] [address] Venous ulcer [I83.009, L97.909] [facility] Comment on above: Venous ulcer [I83.00 9, L97.909] Start: 03-03-2025 End: 03-03-2025 Patient encounter procedure 03/03/2025 3:30 PM EDT OT/PT/Speech Visit [facility] [address] [place] [address] Amanda Soto, PT [address] [place] [address] Venous ulcer [I83.009, L97.909] [facility] Comment on above: Venous ulcer [I83.00 9, L97.909] Start: 03-03-2025 End: 03-03-2025 Patient encounter procedure 03/03/2025 9:30 AM EDT OT/PT/Speech Visit [facility] [address] [place] [address] Amanda Soto, PT [address] [place] [address] Venous ulcer [I83.009, L97.909] [facility] Comment on above: Venous ulcer [I83.00 9, L97.909] Start: 02-25-2025 End: 02-25-2025 Patient encounter procedure Plastic Surgery Comment on above: Right Lower Lateral leg Patient confirmed- Start: 02-24-2025 End: 02-24-2025 Patient encounter procedure 02/24/2025 3:30 PM EDT OT/PT/Speech Visit [facility] [address] [place] [address] Amanda Soto, PT [address], [place] [address] Venous ulcer [I83.009, L97.909] [facility] Comment on above: Venous ulcer [I83.00 9, L97.909] Start: 02-18-2025 End: 02-18-2025 Admission to same day surgery center 02/18/2025 1:00 PM EDT - 02/18/2025 2:00 PM EDT Surgery [facility] [address] [place] [address] [place] [address] [facility] , [address] [place] [address] INSERT PICC W/O PORT OR PUMP ADULT W/O IMAGING GUIDANCE [facility] Comment on above: INSERT PICC W/O PORT OR PUMP ADULT W/O IMAGING GUIDANCE Start: 02-18-2025 End: 02-18-2025 Insertion picc w/o img gdn 5 yr/> INSERT PICC W/O PORT OR PUMP ADULT W/O IMAGING GUIDANCE Infection 02/18/2025 1:00 PM EDT ME IR Start: 02-18-2025 Subsequent hospital visit by physician 02/18/2025 1:00 PM EDT Hospital Encounter [facility] [address] [place] [address] [place] [address] [facility] , [address] [place] [address] Infection [B99.9] [facility] Comment on above: Infection [B99.9] Start: 02-17-2025 End: 02-17-2025 Patient encounter procedure 02/17/2025 3:30 PM EDT OT/PT/Speech Visit [facility] [address] [place] [address] Amanda Soto, PT [address], [place] [id number] Venous ulcer [I83.009, L97.909] [facility] Comment on above: Venous ulcer [I83.00 9, L97.909] Start: 02-11-2025 End: 02-11-2025 Patient encounter procedure Plastic Surgery Comment on above: Patient confirmed- new to us abnormal w ound cultures- Dr. Yin referring Start: 02-10-2025 End: 02-10-2025 Patient encounter procedure 02/10/2025 3:30 PM EDT OT/PT/Speech Visit [facility] [address], [place] [id number] Amanda Soto, PT [address], [place] [id number] Venous ulcer [I83.009, L97.909] [facility] Comment on above: Venous ulcer [I83.00 9, L97.909] Start: 02-10-2025 End: 02-10-2025 Patient encounter procedure 02/10/2025 10:30 AM EDT OT/PT/Speech Visit [facility] [address], [place] [id number] Amanda Soto, PT [address] [place] [address] Venous ulcer [I83.009, L97.909] [facility] Comment on above: Venous ulcer [I83.00 9, L97.909] Start: 02-03-2025 End: 02-03-2025 Patient encounter procedure 02/03/2025 3:30 PM EDT OT/PT/Speech Visit [facility] [address] [place] [address] Amanda Soto, PT [address] [place] [address] Venous ulcer [I83.009, L97.909] [facility] Comment on above: Venous ulcer [I83.00 9, L97.909] Start: 01-22-2025 Patient referral [facility] Work Phone: Start: 01-20-2025 End: 01-20-2025 Patient encounter procedure 01/20/2025 9:30 AM EDT OT/PT/Speech Visit [facility] [address] [place] [address] Amanda Soto, PT [address] [place] [address] Venous ulcer [I83.009, L97.909] [facility] Comment on above: Venous ulcer [I83.00 9, L97.909] Start: 01-13-2025 End: 01-13-2025 Patient encounter procedure 01/13/2025 9:30 AM EDT OT/PT/Speech Visit [facility] [address] [place] [address] Amanda Soto, PT [address] [place] [address] Venous ulcer [I83.009, L97.909] [facility] Comment on above: Venous ulcer [I83.00 9, L97.909] Start: 12-26-2024 Diabetes Screening Diabetes Screenin g [facility] Start: 09-04-2024 Advance Directive Discussion Advance Directive Discussion [facility] Start: 06-26-2024 End: 06-26-2024 Patient encounter procedure 06/26/2024 2:30 PM EDT OT/PT/Speech Visit [facility] [address] [place] [address] Amanda Soto, PT [address] [place] [address] Venous ulcer [I83.009, L97.909] [facility] Comment on above: Venous ulcer [I83.00 9, L97.909] Start: 06-25-2024 End: 06-25-2024 Patient encounter procedure 06/25/2024 9:30 AM EDT OT/PT/Speech Visit [facility] [address] [place] [address] Amanda Soto, PT [address] [place] [address] Venous ulcer [I83.009, L97.909] [facility] Comment on above: Venous ulcer [I83.00 9, L97.909] Start: 06-18-2024 End: 06-18-2024 Patient encounter procedure 06/18/2024 8:30 AM EDT OT/PT/Speech Visit [facility] [address] [place] [address] Amanda Soto, PT [address] [place] [address] Venous ulcer [I83.009, L97.909] [facility] Comment on above: Venous ulcer [I83.00 9, L97.909] Start: 06-12-2024 End: 06-12-2024 Patient encounter procedure 06/12/2024 1:30 PM EDT OT/PT/Speech Visit [facility] [address] [place] [address] Amanda Soto, PT [address] [place] [address] Venous ulcer [I83.009, L91.791] [facility] Comment on above: Venous ulcer [I83.00 9, L97.909] Start: 06-12-2024 End: 06-12-2024 Patient encounter procedure 06/12/2024 10:20 AM EDT Office Visit [facility] [address] [address] Monse Merlos PA-C [address] [place] [address] Degenerative scoliosis [M41.50] [facility] Comment on above: Degenerative scolios is [M41.50] Start: 06-04-2024 End: 06-04-2024 Patient encounter procedure 06/04/2024 9:30 AM EDT OT/PT/Speech Visit [facility] [address] [place] [address] Amanda Soto, PT [address] [place] [address] Venous ulcer [I83.009, L92.906] [facility] Comment on above: Venous ulcer [I83.00 9, W47.907] Start: 05-28-2024 End: 05-28-2024 Patient encounter procedure 05/28/2024 9:30 AM EDT OT/PT/Speech Visit [facility] [address] [place] [address] Amanda Soto, PT [address] [place] [address] Venous ulcer [I83.009, L97.909] [facility] Comment on above: Venous ulcer [I83.00 9, L97.909] Start: 05-21-2024 End: 05-21-2024 Patient encounter procedure 05/21/2024 9:30 AM EDT OT/PT/Speech Visit [facility] [address] [place] [address] Amanda Soto, PT [address] [place] [address] Venous ulcer [I83.009, L97.909] [facility] Comment on above: Venous ulcer [I83.00 9, L97.909] Start: 05-15-2024 End: 05-15-2024 Patient encounter procedure 05/15/2024 10:20 AM EDT Office Visit [facility] [address] [address] Monse Merlos PABruno [address] [place] [address] Degenerative scoliosis [M41.50] [facility] Comment on above: Degenerative scolios is [M41.50] Start: 05-14-2024 End: 05-14-2024 Patient encounter procedure 05/14/2024 9:30 AM EDT OT/PT/Speech Visit [facility] [address] [place] [address] Amanda Soto, PT [address] [place] [address] Venous ulcer [I83.009, L97.909] [facility] Comment on above: Venous ulcer [I83.00 9, L97.909] Start: 05-10-2024 End: 05-10-2024 Patient encounter procedure 05/10/2024 12:30 PM EDT OT/PT/Speech Visit [facility] [address] [place] [address] Amanda Soto, PT [address] [place] [address] Venous ulcer [I83.009, L97.909] [facility] Comment on above: Venous ulcer [I83.00 9, L97.909] Start: 05-08-2024 End: 05-08-2024 Patient encounter procedure 05/08/2024 9:30 AM EDT OT/PT/Speech Visit [facility] [address] [place] [address] Amanda Soto, PT [address] [place] [address] Venous ulcer [I83.009, L97.909] [facility] Comment on above: Venous ulcer [I83.00 9, L97.909] Start: 05-05-2024 Covid-19 Vaccine ( season) Covid-19 Vaccine () [facility] Start: 05-05-2024 Covid-19 Vaccine () Covid-19 Vaccine () [facility] Start: 05-05-2024 Covid-19 Vaccine () Covid-19 Vaccine () [facility] Start: 05-05-2024 Influenza vaccination C [facility] Start: 04-30-2024 End: 04-30-2024 Patient encounter procedure [facility] Comment on above: *use referral [id number]* Venous ulcer [I83.00 9, Z77.90] Start: 04-30-2024 End: 04-30-2024 ambulatory 04/30/2024 8:15 AM EDT OT/PT/Speech Visit [facility] [address] [place] [address] Liseth Alanis, PT Other malaise [R53.81] [facility] Comment on above: Other malaise [R53.8 1] Start: 04-24-2024 End: 04-24-2024 Patient encounter procedure 04/24/2024 9:30 AM EDT OT/PT/Speech Visit [facility] [address] [place] [address] Amanda Soto, PT [address] [place] [address] Venous ulcer [I83.009, L97.909] [facility] Comment on above: Venous ulcer [I83.00 9, L97.909] Start: 04-23-2024 End: 04-23-2024 ambulatory 04/23/2024 2:15 PM EDT OT/PT/Speech Visit [facility] [address] [place] [address] Jeremy'Liseth Gonzalez, PT Other malaise [R53.81]/Back Pain [facility] Comment on above: Other malaise [R53.8 1]/Back Pain Start: 04-23-2024 End: 04-23-2024 Patient encounter procedure 04/23/2024 10:30 AM EDT Office Visit [facility] [address] [place] [address] Gt Yin, DO [address] [place] [address] Venous (peripheral) insufficiency [I87.2]; Symptomatic varicose veins of both lower extremities [I83.893] [facility] Comment on above: Venous (peripheral) insufficiency [I87.2]; Symptomatic varicose veins of both lower extremities [I83.893] Start: 04-22-2024 End: 04-22-2024 Patient encounter procedure [facility] Comment on above: *use referral [id number]* Venous ulcer [I83.00 9, L97.909] Start: 04-16-2024 End: 04-16-2024 Patient encounter procedure [facility] Comment on above: *use referral [id number]* Venous ulcer [I83.00 9, L97.909] Start: 04-16-2024 End: 04-16-2024 ambulatory 04/16/2024 10:30 AM EDT OT/PT/Speech Visit [facility] [address] [place] [address] Liseth Alanis, PT Back Pain [facility] Comment on above: Back Pain Start: 04-10-2024 End: 04-10-2024 Patient encounter procedure 04/10/2024 11:30 AM EDT OT/PT/Speech Visit [facility] [address] [place] [address] Amanda Soto, PT [address] [place] [address] *use referral [id number]* [facility] Comment on above: *use referral [id number]* Start: 04-04-2024 End: 04-04-2024 Patient encounter procedure 04/04/2024 2:30 PM EDT OT/PT/Speech Visit [facility] [address] [place] [address] Amanda Soto, PT [address] [place] [address] *use referral [id number]* [facility] Comment on above: *use referral [id number]* Start: 04-03-2024 End: 04-03-2024 Patient encounter procedure 04/03/2024 2:30 PM EDT Office Visit [facility] [address] [place] [address] Venous (peripheral) insufficiency [I87.2]; Symptomatic varicose veins of both lower extremities [I83.893] [facility] Comment on above: Venous (peripheral) insufficiency [I87.2]; Symptomatic varicose veins of both lower extremities [I83.893] Start: 04-02-2024 End: 04-02-2024 Patient encounter procedure Radiology Comment on above: hip pain L hip pain Start: 04-02-2024 End: 04-02-2024 Patient encounter procedure [facility] Comment on above: *use referral [id number]* Venous ulcer (HCC) [I83.009, L97.909] Venous (peripheral) insufficiency [I87.2] 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] lt hip replacement *use referral [id number]* Start: 03-26-2024 End: 03-26-2024 Patient encounter procedure [facility] Comment on above: *use referral [id number]* Venous ulcer (HCC) [I83.009, L97.909] Venous (peripheral) insufficiency [I87.2] 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] *use referral [id number]* Start: 03-26-2024 End: 03-26-2024 ambulatory 03/26/2024 11:15 AM EDT OT/PT/Speech Visit [facility] [address] [place] [address] O'Liseth Gonzalez, PT Dx: Other malaise [R53.81 (ICD-10-CM)] [facility] Comment on above: Dx: Other malaise [R 53.81 (ICD-10-CM)] Start: 03-20-2024 End: 03-20-2024 ambulatory 03/20/2024 12:00 PM EDT OT/PT/Speech Visit [facility] [address] [place] [address] O'Liseth Gonzalez, PT Dx: Other malaise [R53.81 (ICD-10-CM)] [facility] Comment on above: Dx: Other malaise [R 53.81 (ICD-10-CM)] Start: 03-19-2024 End: 03-19-2024 Patient encounter procedure [facility] Comment on above: *use referral [id number]* Venous ulcer (HCC) [I83.009, L97.909] Venous (peripheral) insufficiency [I87.2] 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] *use referral [id number]* Start: 03-13-2024 End: 03-13-2024 ambulatory 03/13/2024 12:45 PM EDT OT/PT/Speech Visit [facility] [address] [place] [address] O'Liseth Gonzalez, PT Dx: Other malaise [R53.81 (ICD-10-CM)] [facility] Comment on above: Dx: Other malaise [R 53.81 (ICD-10-CM)] Start: 02-27-2024 End: 02-27-2024 ambulatory 02/27/2024 5:15 PM EDT OT/PT/Speech Visit [facility] [address] [place] [address] O'CarlosLiseth, PT Dx: Other malaise [R53.81 (ICD-10-CM)] [facility] Comment on above: Dx: Other malaise [R 53.81 (ICD-10-CM)] Start: 02-27-2024 End: 02-27-2024 Patient encounter procedure 02/27/2024 8:30 AM EDT Office Visit [facility] [address] [place] [address] Gt Yin, DO [address] [place] [address] [facility] (patient to have medical records transferred) [facility] Comment on above: [facility] (patient to have medical records transferred) Start: 02-20-2024 End: 02-20-2024 ambulatory 02/20/2024 10:30 AM EDT OT/PT/Speech Visit [facility] [address] [address] O'CarlosLiseth, PT Other malaise [R53.81 (ICD-10-CM)] [facility] Comment on above: Other malaise [R53.8 1 (ICD-10-CM)] Start: 02-13-2024 End: 02-13-2024 ambulatory 02/13/2024 10:30 AM EDT OT/PT/Speech Visit [facility] [address] [place] [address] O'CarlosLiseth, PT Other malaise [R53.81 (ICD-10-CM)] [facility] Comment on above: Other malaise [R53.8 1 (ICD-10-CM)] Start: 02-06-2024 End: 02-06-2024 ambulatory 02/06/2024 8:15 AM EDT OT/PT/Speech Visit [facility] [address] [place] [address] OLiseth Duarte, PT Other malaise [R53.81 (ICD-10-CM)] [facility] Comment on above: Other malaise [R53.8 1 (ICD-10-CM)] Start: 01-05-2024 Patient referral [facility] Work Phone: Start: 01-05-2024 Procedure [facility] Start: 12-30-2023 Referral to service [facility] Start: 12-30-2023 Patient discharge [facility] Start: 12-28-2023 Following clinical p athway protocol [facility] Start: 12-28-2023 [facility] Start: 12-28-2023 Wound care [facility] Start: 12-28-2023 Leukocyte reduced re d blood cells [facility] Start: 12-28-2023 [facility] Start: 12-28-2023 Administration of bl ood product [facility] Start: 12-27-2023 End: 12-28-2023 [facility] Start: 12-27-2023 Consultation for treatment [facility] Start: 12-27-2023 Following clinical p athway protocol [facility] Start: 12-27-2023 Ambulation without limitation [facility] Start: 12-27-2023 Assessment of risk o f venous thromboembolism [facility] Start: 12-27-2023 Insertion of cathete r into peripheral vein [facility] Start: 12-27-2023 Measuring intake and output [facility] Start: 12-27-2023 Providing care accor ding to standard [facility] Start: 12-27-2023 Referral to gastroenterology service [facility] Start: 12-27-2023 Referral to occupati onal therapist [facility] Start: 12-27-2023 Referral to service [facility] Start: 12-27-2023 Verification routine [facility] Start: 12-27-2023 Hospital admission, emergency, from emergency room, medical nature [facility] Start: 12-27-2023 Admission procedure [facility] Start: 12-27-2023 [facility] Start: 11-16-2023 Patient referral [facility] Work Phone: Start: 11-15-2023 Thiamine measurement [facility] Start: 10-26-2023 Patient discharge [facility] Start: 09-04-2023 Advance Directive Discussion Advance Directive Discussion [facility] Start: 09-04-2023 Behavioral Health Screening Behavioral Health Screening [facility] Start: 07-10-2023 Patient referral [facility] Work Phone: Start: 06-13-2023 Patient discharge [facility] Start: 06-12-2023 End: 06-12-2023 Referral to service [facility] Start: 06-12-2023 Anesthesia radical/modified radical breast ANESTH SURGERY OF BREAST [facility] Start: 06-12-2023 Mast modf rad w/ax l ymph nod w/wo pect/aleks min MAST MOD RAD [facility] Start: 06-12-2023 Catheterization of vein [facility] Start: 06-12-2023 Consultation for treatment [facility] Start: 06-12-2023 Deep breathing and coughing exercises [facility] Start: 06-12-2023 Elevation of head of bed [facility] Start: 06-12-2023 End: 06-12-2023 Following clinical pathway protocol [facility] Start: 06-12-2023 Incentive spirometry [facility] Start: 06-12-2023 Patient education [facility] Start: 06-12-2023 Referral to self hel p service [facility] Start: 06-12-2023 Taking patient vital signs [facility] Start: 06-12-2023 Vital signs measurements [facility] Start: 06-12-2023 Wound care [facility] Start: 06-12-2023 [facility] Start: 06-12-2023 Admission procedure [facility] Start: 06-12-2023 Patient referral to dietitian [facility] Start: 05-08-2023 Patient referral [facility] Work Phone: Start: 05-05-2023 Covid-19 Vaccine ( season) Covid-19 Vaccine ( season) [facility] Start: 05-05-2023 Covid-19 Vaccine ( season) Covid-19 Vaccine ( season) [facility] Start: 04-26-2023 Patient referral [facility] Work Phone: Start: 04-26-2023 CBC W Auto Different ial panel - Blood [facility] Start: 04-26-2023 [facility] Start: 01-20-2023 Patient referral [facility] Work Phone: Start: 09-04-2022 ADVANCE DIRECTIVE DISCUSSION ADVANCE DIRECTIVE DISCUSSION [facility] Start: 09-04-2022 DEPRESSION ASSESSMENT DEPRESSION ASS ESSMENT [facility] Start: 05-05-2022 Influenza vaccination INFLUENZA (#1) [facility] Start: 03-25-2022 Patient referral [facility] Work Phone: Start: 06-08-2021 Shingrix Vaccine (2 of 2) Francis grix Vaccine (2 of 2) [facility] Start: 04-15-2021 Patient referral Referrals: [facility] [employer] Start: 05-28-2020 Patient referral Screening Mammo, Bi lat Medical [facility] [employer] Start: 05-12-2020 DIABETES SCREEN DIABETES SCREEN [facility] Start: 05-05-2020 Influenza vaccinatio n given INFLUENZA VACCINE (Season Ended) [facility] Start: 02-17-2020 End: 02-17-2020 Appointment 02/17/2020 Appointment Wound Care Dipak Newby DO [address] [place] [address] Isi Paul, KAREN [facility] Start: 01-28-2020 CMP ([id number]) , Appointment on: , Sent on: [facility] Start: 01-28-2020 End: 01-28-2020 Appointment 01/28/2020 Appointment Wound Care Dipak Newby, DO [address] [place] [address] [phone] Isi Paul RN [facility] Start: 01-20-2020 End: 01-20-2020 Appointment 01/20/2020 Appointment Wound Care Dipak Newby, DO [address] [place] [address] [phone] Isi Paul RN [facility] Start: 01-14-2020 End: 01-14-2020 Appointment 01/14/2020 Appointment Wound Care Dipak Newby, DO [address] [place] [address] [phone] Isi Paul RN [facility] Start: 01-13-2020 Patient referral DX MAMMO INCL CAD UNI L [facility] [employer] Start: 01-06-2020 End: 01-06-2020 Appointment 01/06/2020 Appointment Wound Care Dipak Newby, DO [address] [place], [place] [id number] Ileana De La Cruz RN [facility] Start: 06-24-2019 Patient referral DX MAMMO INCL CAD B I [facility] Start: 05-29-2019 Patient referral [facility] Start: 05-27-2019 CCP IgG Antibo dies ([id number]), Ordered on: [facility] Start: 05-17-2019 Patient referral SCR MAMMO BI INCL C AD [facility] Start: 05-05-2019 Influenza vaccinatio n given INFLUENZA VACCINE (#1) [facility] Start: 10-05-2018 Medicare Annual Well ness Visit Medicare Annual Wellness Visit [facility] Start: 05-23-2018 Patient referral Referrals: Dermatology. Ashwin Duran MD [facility] [employer] Start: 2016 BONE DENSITY BONE DENSITY [facility] Start: 2016 Fall risk assessment FALL RISK [facility] Start: 2016 Glaucoma screening GLAUCOMA/EY E EXAM AGE 65+ [facility] Start: 2016 Osteoporosis risk assessment done BONE DENSITY SCREENING [facility] Start: 2016 Pneumococcal polysaccharide vaccine (product) PNEUMONIA VACCINE (PCV13 PPSV23) (1 of 2 - PCV13) [facility] Start: 2016 PNEUMOCOCCAL: 65+ (1 - PCV) PNEUMOCOCCAL: 65+ (1 - PCV) [facility] Start: 2016 Screening for osteoporosis Bone Dens ity Screening [facility] Start: 04-29-2016 Lipid panel Lipid Screening [facility] Start: 04-29-2016 LIPID SCREEN LIPID SCREEN [facility] Start: 05-05-2012 Mammography MAMMOGRAM [facility] Start: 05-05-2012 Screening for malign ant neoplasm of breast Mammogram Screening [facility] Start: 2011 RSV Vaccine (1 - 1-d ose 60+ series) RSV Vaccine (1 - 1-dose 60+ series) [facility] Start: 2011 RSV Vaccine (1 - Ris k 60-74 years 1-dose series) RSV Vaccine (1 - Risk 60-74 years 1-dose series) [facility] Start: 2011 Varicella-zoster vac cine (product) ADULT VZV VACCINE [facility] Start: 09-15-2009 Colonoscopy COLONOSCOPY [facility] Start: 09-15-2009 COLORECTAL CANCER SCREENING COLORECTAL CANCER SCREENING [facility] Start: 09-15-2009 Screening for malign ant neoplasm of colon [facility] Start: 2001 Colonoscopy COLONOSCOPY 10 YR [facility] Start: 2001 Screening for malign ant neoplasm of colon [facility] Start: 2001 SHINGLES VACCINE (1 of 2) FRANCIS GLES VACCINE (1 of 2) [facility] Start: 2001 SHINGRIX VACCINE (1 of 2) FRANCIS GRIX VACCINE (1 of 2) [facility] Start: 09-05-2001 Urine microalbumin profile DTA P,TDAP,TD (1 - Tdap) [facility] Start: 1996 COLOGUARD (FIT-DNA) COLOGUARD (FIT-D NA) [facility] Start: [address] COLONOGRAPHY [facility] Start: 1996 FECAL OCCULT BLOOD FECAL OCCULT BLOO D [facility] Start: 1996 Screening for malign ant neoplasm of colon [facility] Start: 1996 SIGMOIDOSCOPY SIGMOIDOSCOPY [facility] Start: 1991 Screening mammography MAMMOGRAM [facility] Start: 1972 Tetanus, diphtheria and acellular pertussis vaccination TDAP/TD ADULT [facility] Start: 1970 Pneumococcal Vaccine : 50+ (1 of 2 - PCV) Pneumococcal Vaccine: 50+ (1 of 2 - PCV) [facility] Start: 1969 ANNUAL WELLNESS VISIT ANNUAL WELLNES S VISIT [facility] Start: 1969 Depression Screening Depression Scre ening [facility] Start: 1963 Adult [facility] DEPRESSION SCREENING [facility] Start: 1957 Pneumococcal Vaccine : 65+ (1 of 2 - PCV) Pneumococcal Vaccine: 65+ (1 of 2 - PCV) [facility] Start: [birth year]-24-1952 COVID-19 VACCINE (#1) COVID-19 VACCI NE (#1) [facility] Start: 1951 Hepatitis C screening HEPATITIS C [facility] Alanine aminotransfe rase [Enzymatic activity/volume] in Serum or Plasma [facility] Albumin [Mass/volume ] in Serum or Plasma [facility] Alkaline phosphatase [Enzymatic activity/volume] in Serum or Plasma [facility] Anion gap measurement [facility] Ankle brachial press ure index [facility] Aspartate aminotrans ferase [Enzymatic activity/volume] in Serum or Plasma [facility] Bacteria identified in Wound by Culture BACTERIAL CULTURE AND GRAM STAIN, ABSCESS AND WOUND (AEROBIC CULTURE) Microbiology Routine Venous ulcer of right lower extremity with varicose veins (HCC) 01/28/2025 11:30 AM EDT [facility] Work Phone: Bacteria identified in Wound by Culture BACTERIAL CULTURE AND GRAM STAIN, ABSCESS AND WOUND (AEROBIC CULTURE) Microbiology Routine Venous stasis ulcer of calf with fat layer exposed, unspecified laterality, unspecified whether varicose veins present (HCC) 05/20/2025 11:51 AM EDT [facility] Work Phone: Bilirubin, total measurement [facility] BUN/Creatinine ratio [facility] Calcium [Mass/volume ] in Serum or Plasma [facility] Carbon dioxide, tota l [Moles/volume] in Serum or Plasma [facility] CBC W Auto Different ial panel - Blood [facility] CBC W Auto Different ial panel - Blood [facility] CBC W Auto Different ial panel - Blood [facility] CBC W Auto Different ial panel - Blood [facility] CBC W Auto Different ial panel - Blood [facility] Chloride [Moles/volu me] in Serum or Plasma [facility] Clostridioides diffi cile DNA [Presence] in Unspecified specimen by JAMESON with probe detection [facility] metabo lic 1999 panel - Serum or Plasma [facility] Comprehensive metabo lic 1999 panel - Serum or Plasma [facility] Comprehensive metabo lic 1999 panel - Serum or Plasma [facility] Creatinine [Moles/vo lume] in Serum or Plasma [facility] DXA Bone [Mass/Area] Bone density [facility] Work Phone: DXA Bone [Mass/Area] Bone density [facility] Gastrointestinal pat hogens panel - Stool by JAMESON with probe detection [facility] Glucose [Mass/volume ] in Serum or Plasma [facility] Hematocrit [Volume Fraction] of Blood [facility] Hemoglobin [Mass/vol ume] in Blood [facility] Leukocytes [#/volume ] in Blood [facility] Mean corpuscular hemoglobin concentration determination [facility] Mean corpuscular hemoglobin determination [facility] Measurement of renal function [facility] MG Breast - bilatera l Screening [facility] Natriuretic peptide. B prohormone N-Terminal [Mass/volume] in Serum or Plasma [facility] Neutrophil count [facility] Neutrophil percent differential count [facility] Patient referral [facility] Work Phone: Platelets [#/volume] in Blood [facility] Potassium [Moles/vol ume] in Serum or Plasma [facility] Red blood cell count [facility] Red cell distributio n width determination [facility] Sodium [Moles/volume ] in Serum or Plasma [facility] Total protein measurement [facility] Urea nitrogen [Mass/volume] in Serum or Plasma [facility] Urinalysis complete panel - Urine [facility] US Breast limited [facility] US Carotid arteries [facility] End: 02-26-2025 US Vein - bilateral US VENOUS INCOMPETENCY [facility] Routine Venous (peripheral) insufficiency Symptomatic varicose veins of both lower extremities 1 Occurrences starting 02/27/2024 until 02/26/2025 [facility] Work Phone: Comment on above: 1 Occurrences starti ng 02/27/2024 until 02/26/2025 Vitamin B6 measurement [facility] Vitamin D, 25-hydrox y measurement [facility] End: 12-23-2019 Wound culture Wound culture Microbiology Routine One Time for 1 Occurrences starting 12/23/2019 until 12/23/2019 [facility] Comment on above: One Time for 1 Occur rences starting 12/23/2019 until 12/23/2019 Wound culture [facility] End: 01-14-2020 Wound culture Wound culture Microbiology Routine One Time for 1 Occurrences starting 01/14/2020 until 01/14/2020 [facility] Comment on above: One Time for 1 Occur rences starting 01/14/2020 until 01/14/2020 End: 11-17-2023 XR HIP GENERAL 3V PELV/AP/LAT LEFT XR HIP GENERAL 3V PELV/AP/LAT LEFT Radiology Routine Pain 1 Occurrences starting 10/18/2022 until 11/17/2023 [facility] Work Phone: Comment on above: 1 Occurrences starti ng 10/18/2022 until 11/17/2023 XR Lumbar spine 2 or 3 Views [facility] Immunizations Immunization Date Immunization Notes Care Provider Fa [facility] 06-16-2022 Covid Pfizer Bivalen t Booster Dr. Khanh Rodriguez MD Work Phone: [facility] 06-12-[address] Khanh Rodriguez MD Work Phone: [facility] 04-25-2021 tetanus toxoid, redu leon diphtheria toxoid, and acellular pertussis vaccine, adsorbed Dr. Khanh Rodriguez MD Work Phone: [facility] 04-13-[address] Khanh Rodriguez MD Work Phone: [facility] 01-05-2021 Covid (Pfizer) Dr. Khanh Rodriguez MD Work Phone: [facility] 12-15-2020 Covid (Pfizer) Dr. Khanh Rodriguez MD Work Phone: [facility] 07-19-2002 hepatitis A vaccine, pediatric/adolescent dosage, [address] Khanh Rodriguez MD Work Phone: [facility] 07-19-2002 hepatitis A vaccine, unspecified formulation Yoseph Briones MD Work Phone: [facility] 07-19-2002 hepatitis B vaccine, adult dosage Yoseph Briones MD Work Phone: [facility] 10-23-2001 hepatitis A vaccine, pediatric/adolescent dosage, [address] Khanh Rodriguez MD Work Phone: [facility] 10-23-2001 hepatitis A vaccine, unspecified formulation Yoseph Briones MD Work Phone: [facility] 10-23-2001 hepatitis B vaccine, adult dosage Yoseph Briones MD Work Phone: [facility] 09-04-2001 tetanus and diphther ia toxoids, not adsorbed, for adult use Yoseph Briones MD Work Phone: [facility] Work Phone: Payers Date Payer Category Payer Self-pay [id number] 2021 Private Health Insurance [employer]MO MEDICARE SUPPLEMENT [id number] 2021 Unknown [id number] 2018 Medicare xxxxxxxxxxxx [id number] 2018 Unknown [id number]. [id number] 2016 Medicare [id number] 2016 Medicare [id number] Medicare MEDICARE MEDICAR E PART A & B xxxxxxxxxxx Effective for all dates [address] [place] [address] Medicare xxxxxxxxxxx [id number] Unknown [id number] 2.16.840.1.548161.3.579.2. 462 Unknown [id number] 2.16.840.1.390397.3.579.2. 462 Unknown [id number] 2.16.840.1.492831.3.579.2. 462 Unknown [id number] 2.16.840.1.500637.3.579.2. 462 Unknown [id number] 2.16.840.1.327010.3.579.2. 462 Unknown [id number] 2.16.840.1.651169.3.579.2. 462 Unknown [id number] 2.16.840.1.682205.3.579.2. 462 Unknown [id number] 2.16.840.1.732035.3.579.2. 462 Unknown [id number] 2.16.840.1.584430.3.579.2. 462 Unknown [id number] 2.16.840.1.833233.3.579.2. 462 Unknown [id number] 2.16.840.1.634280.3.579.2. 462 Unknown [id number] 2.16.840.1.301838.3.579.2. 462 Unknown [id number] 2.16.840.1.209839.3.579.2. 462 Unknown [id number] 2.16.840.1.501743.3.579.2. 462 Unknown [id number] 2.16.840.1.496986.3.579.2. 462 Unknown [id number] 2.16.840.1.350713.3.579.2. 462 Unknown [id number] 2.16.840.1.980796.3.579.2. 462 Unknown [id number] 2.16.840.1.219339.3.579.2. 462 Unknown [id number] 2.16.840.1.805118.3.579.2. 462 Unknown [id number] 2.16.840.1.916253.3.579.2. 462 Unknown [id number] 2.16.840.1.606090.3.579.2. 462 Unknown [id number] 2.16.840.1.331689.3.579.2. 462 Unknown [id number] 2.16840.1.343533.3.579.2. 462 Social History Date Type Detail Facility Tobacco smoking status MAIS Unknown if ever smoked [facility] Sex Assigned At Not on file [facility] Start: 10-26-2021 End: 12-30-2023 Tobacco smoking status MAIS Unknown if ever smoked [facility] Start: 10-26-2021 Alcohol intake Alcohol Use Details [facility] Start: 1950 Sex Assigned At Female [facility] Start: 04-04-2012 End: 05-07-2025 Tobacco smoking status NHIS Never smoked tobacco [facility] Start: 04-04-2012 End: 02-27-2024 Tobacco use and exposure Smokeless tobacco non-user [facility] Start: 06-05-2019 End: 04-08-2025 Alcohol intake Current drinker of alcohol (finding) [facility] Start: 03-28-2017 Alcohol Comment 3 glasses of w ine daily-quit 05/2016 [facility] Start: 06-05-2019 End: 01-30-2024 History of Social function [facility] Start: 06-05-2019 End: 01-30-2024 Tobacco use panel [facility] Start: 08-05-2012 National Score (1-100), lower number is lower risk 99 [facility] Start: 07-04-2019 Gender identity Identifies as female gender (finding) [facility] Start: 07-04-2019 Sexual orientation Heterosexual (natalie garza) [facility] NEGATED: Highlighted row [facility] Medical Equipment Procedure Code Equipment Code Equipment Origin al Text Equipment Identifier Dates EGD, with monitored anesthesia care Oesophageal endoscopic ligator, single-useHaemorrhoi d ligator [id number] FDA Start: 12-28-2023 Collagen haemost atic agent, non-antimicrobial ()[id number] FDA Start: 06-12-2023 Ligation clip, metallic ()[id number] FDA Start: 06-12-2023 Ligation clip, metallic ()[id number] FDA Start: 06-12-2023 Goals Date Patient Goal Desired Activity /State Personal health goal Functional Status Date Assessment Result Facility 12-30-2023 Functional status Ambulates [facility] Work Phone: 12-29-2023 Functional status Tolerates Activity Well [facility] Work Phone: 06-13-2023 Functional status Chair [facility] Work Phone: Mental Status Date Assessment Result Facility 04-25-2025 Cognitive function Voice/Name [facility] Work Phone: 03-28-2025 Cognitive function Voice/Name [facility] Work Phone: 01-31-2025 Cognitive function Voice/Name [facility] Work Phone: 12-30-2023 Cognitive function Voice/Name [facility] Work Phone: 06-13-2023 Cognitive function Level Of Cons ciousness Awake;Alert;Appropriate;Follow s Commands [facility] Work Phone: 06-13-2023 Cognitive function Voice/Name [facility] Work Phone: Clinical Notes 05-28-2020 to 06-03-2025 Amanda Soto, PT - 05/20/2025 11:40 AM EDTRAmanda fox, PT - 05/13/2025 11:40 AM EDAmanda José, PT - 05/06/2025 11:40 AM EDT Note Date & Type Note Facility 06-03-2025 Note [facility] 06-02-2025 Note [facility] 06-01-2025 Note [facility] 06-01-2025 Note [facility] 05-31-2025 Note [facility] 05-31-2025 Note [facility] 05-30-2025 Note [facility] 05-29-2025 Note HNO ID: [id number] Author: NAUN DAVIS DPM Service: Podiatry Author Type: Physician Type: Plan of Care Filed: 05/29/2025 20:10 Note Text: Plan for OR debridement of wounds RIGHT and LEFT lower leg tomorrow with Dr Dougherty. NPO at midnight [facility] 05-29-2025 Note [facility] 05-29-2025 Note [facility] 05-27-2025 Note [facility] 05-27-2025 Note [facility] 05-27-2025 Note [facility] 05-20-2025 History of Presen t illness Narrative Episode Visit Count: 20 Therapist That Will Accept/Oversee The Plan Of Care: Amanda Soto Start of Care Date: 01/06/25 Onset Date: 08/14/24 (second week of August) Plan of Care Certification Date: 04/01/25 Next Certification Due Date: 07/05/25 Patient Identified by Name and Date of : Yes [facility] PHYSICAL THERAPY WOUND [...] (compression and elevation) Response To Pain Intervention: 7-8 tender/sore/pain OBJECTIVE: Patient presents for follow-up wound [...] culture was taken. Conservative Sharp Debridement <20cm (43806): 5 mm curette used to selectively remove [...] removed from the wound bed Nonselective Debridement (89050): Cleansed the RIGHT LE with warm soapy [...] Compression Therapy (Multilayer Venous Wound Compression System) (38908): Skilled interventions: -Skilled knowledge of wound care [...] rendered are medically necessary. Noncontact Ultrasound Mist (69675): no charge (bundled) Selective Sharp Debridement <20cm (16473): 1 unit Nonselective debridement (56990): no charge (bundled) Multi-Layer Venous Wound Compression System (85031): 1 unit (untimed) Session Start Time : 1034 Session Stop Time : 1138 Total Time: 64 minutes Amanda Soto PT documented in this encounter [facility] 05-20-2025 Note [facility] 05-13-2025 History of Presen t illness Narrative Episode Visit Count: 19 Therapist That Will Accept/Oversee The Plan Of Care: Amanda Soto Start of Care Date: 01/06/25 Onset Date: 08/14/24 (second week of August) Plan of Care Certification Date: 04/01/25 Next Certification Due Date: 07/05/25 Patient Identified by Name and Date of : Yes [facility] PHYSICAL THERAPY WOUND [...] over news from a spinal MD in [place] that she feels like the patients bones are too osteoporotic to do spinal surgery. Pain Tool: Verbal (Numeric Rating or Visual Analog Scale) Pain Level: 8 Pain Location: Leg-Right Description: Sore, Tenderness, Aching, Burning Duration: Continuous Intervention/Comfort measure: Medication, Reposition, Relaxation, Distractions, Emotional Support/Reassurance, Positioning (compression and elevation) Response To Pain Intervention: 04/13 on exit. Burning, ache, sore OBJECTIVE: Patient [...] Partial thickness TREATMENT: Conservative Sharp Debridement <20cm (04087): 5 mm curette used to selectively remove [...] removed from the wound bed Nonselective Debridement (32664): dressings removed. Cleansed the RIGHT LE with [...] Compression Therapy (Multilayer Venous Wound Compression System) (55204): Skilled interventions: -Skilled knowledge of wound care [...] rendered are medically necessary. Noncontact Ultrasound Mist (56303): no charge (bundled) Selective Sharp Debridement <20cm (27743): 1 unit Nonselective debridement (71822): no charge (bundled) Multi-Layer Venous Wound Compression System (41187): 1 unit (untimed) Session Start Time : 1043 Session Stop Time : 1135 Total Time: 52 minutes Amanda Soto PT documented in this encounter [facility] 05-13-2025 Note [facility] 05-06-2025 History of Presen t illness Narrative Episode Visit Count: 18 Therapist That Will Accept/Oversee The Plan Of Care: Amanda Soto Start of Care Date: 01/06/25 Onset Date: 08/14/24 (second week of August) Plan of Care Certification Date: 04/01/25 Next Certification Due Date: 07/05/25 Patient Identified by Name and Date of : Yes [facility] PHYSICAL THERAPY WOUND [...] Wound Healing % -21 Drainage Description Serosanguineous-purulent (yellow-[place] green hue). Drainage Amount Large with Strikethrough Odor Mild Elif-Wound Treatment Vaseline;Zinc Oxide;Betadine Treatments Cleansed;Mechanical Debridement;PT Compression;PT Debridement;PT Mist Therapy Dressing Changed Changed State of Healing Early/partial granulation Wound Bed Granulation (%) 65 % Wound Bed Epithelium (%) 10 % Wound Bed Slough (%) 25 % (marbled slough and fibrotic tissue) Non-staged Wound Description Partial thickness TREATMENT: Conservative Sharp Debridement <20cm (45939): 5 mm curette used to selectively remove [...] removed from the wound bed Nonselective Debridement (42556): dressings removed. Cleansed the RIGHT LE with [...] Compression Therapy (Multilayer Venous Wound Compression System) (41010): Skilled interventions: -Skilled knowledge of wound care [...] Treatment/Symptom(s): See above Billing: Noncontact Ultrasound Mist (69319): no charge (bundled) Selective Sharp Debridement <20cm (59006): 1 unit Nonselective debridement (99593): no charge (bundled) Multi-Layer Venous Wound Compression System (81606): 1 unit (untimed) Session Start Time : 1047 Session Stop Time : 1143 Total Time: 56 minutes Amanda Soto PT documented in this encounter [facility] 05-06-2025 Note [facility] 04-29-2025 Evaluation note Diagnosis Onset Date Resolution Chronic pain chronic April 29, 2025 12:39pm Cirrhosis chronic April 29 025 12:39pm Dyspnea chronic April 29 025 12:39pm Compression fracture of lumbar vertebra acute May 08 025 1:03pm History of kyphoplasty acute Se ptember [...] 2025 8:04am Osteoporosis chronic May 212024 8:04am [facility] Work Phone: 1(411) 845-526108-25-2025 History of Present illness Narrative* SotoAmanda, PT - 04/28/2025 10:30 AM EDT Images from the original note were not included. Episode Visit Count: 17 Therapist That Will Accept/Oversee The Plan Of Care: Amanda Soto Start of Care Date: 01/06/25 Onset Date: 08/14/24 (second week of August) Plan of Care Certification Date: 04/01/25 Next Certification Due Date: 07/05/25 Patient Identified by Name and Date of : Yes [facility] PHYSICAL THERAPY WOUND [...] (compression and elevation) Response To Pain Intervention: 5-02/11, sore;tender, burning PROMIS Scales 06/26/2024 05/28/2024 04/30/2024 [...] Partial thickness TREATMENT: Conservative Sharp Debridement <20cm (36830): 5 mm curette used to selectively remove [...] removed from the wound bed Nonselective Debridement (63538): dressings removed. Cleansed the RIGHT LE with [...] Compression Therapy (Multilayer Venous Wound Compression System) (75308): Skilled interventions: -Skilled knowledge of wound care [...] Treatment/Symptom(s): See above Billing: Noncontact Ultrasound Mist (01286): no charge (bundled) Selective Sharp Debridement <20cm (78724): 1 unit Nonselective debridement (55948): no charge (bundled) Multi-Layer Venous Wound Compression System (42682): 1 unit (untimed) Session Start Time : 933 Session Stop Time : 1028 Total Time: 55 minutes Amanda Soto PT [facility] 04-22-2025 History of Present illness Narrative* Amanda Soto, PT - 04/22/2025 11:33 AM EDT Episode Visit Count: 16 Therapist That Will Accept/Oversee The Plan Of Care: Amanda Soto Start of Care Date: 01/06/25 Onset Date: 08/14/24 (second week of August) Plan of Care Certification Date: 04/01/25 Next Certification Due Date: 07/05/25 Patient Identified by Name and Date of : Yes [facility] PHYSICAL THERAPY WOUND [...] 11:00 AM Site Assessment Red;Yellow;[place]-Wound Assessment Erythematous;Fragile;Hyperpigmented;[place];Moist ;Painful Wound Length (cm) 8.2 cm Wound [...] associated orders. TREATMENT: Conservative Sharp Debridement <20cm (40132): 5 mm curette used to selectively remove [...] removed from the wound bed Nonselective Debridement (44234): dressings removed. Cleansed the RIGHT LE with [...] Compression Therapy (Multilayer Venous Wound Compression System) (19408): Skilled interventions: -Skilled knowledge of wound care [...] See above Billing: Selective Sharp Debridement <20cm (66997): 1 unit Nonselective debridement (33548): no charge (bundled) Multi-Layer Venous Wound Compression System (27048): 1 unit (untimed) Session Start Time : 1041 Session Stop Time : 1133 Total Time: 51 minutes Amanda Soto PT [facility] 04-15-2025 History of Present illness Narrative* Amanda Soto, PT - 04/15/2025 11:35 AM EDT Episode Visit Count: 15 Therapist That Will Accept/Oversee The Plan Of Care: Amanda Soto Start of Care Date: 01/06/25 Onset Date: 08/14/24 (second week of August) Plan of Care Certification Date: 04/01/25 Next Certification Due Date: 07/05/25 Patient Identified by Name and Date of : Yes [facility] PHYSICAL THERAPY WOUND [...] associated orders. TREATMENT: Conservative Sharp Debridement <20cm (71213): 5 mm curette used to selectively remove [...] removed from the wound bed Nonselective Debridement (16605): dressings removed. Cleansed the RIGHT LE with [...] Compression Therapy (Multilayer Venous Wound Compression System) (60783): Skilled interventions: -Skilled knowledge of wound care [...] Treatment/Symptom(s): See above Billing: Noncontact Ultrasound Mist (15129): no charge (bundled) Selective Sharp Debridement <20cm (62575): 1 unit Nonselective debridement (78495): no charge (bundled) Multi-Layer Venous Wound Compression System (32921): 1 unit (untimed) Session Start Time : 1049 Session Stop Time : 1138 Total Time: 49 minutes Amanda Soto PT [facility] 04-08-2025 NoteMad[facility] [id number] [facility]08-05-2025 Note [id number] History of Present illness Narrative* Amanda Soto, [...] by Name and Date of : Yes [facility] PHYSICAL THERAPY WOUND [...] associated orders. TREATMENT: Conservative Sharp Debridement <20cm (40572): 5 mm curette used to selectively remove [...] removed from the wound bed Nonselective Debridement (64688): dressings removed. Cleansed the RIGHT LE with [...] Compression Therapy (Multilayer Venous Wound Compression System) (70032): Skilled interventions: -Skilled knowledge of wound care [...] Treatment/Symptom(s): See above Billing: Noncontact Ultrasound Mist (64841): no charge (bundled) Selective Sharp Debridement <20cm (84163): 1 unit Nonselective debridement (45000): no charge (bundled) Multi-Layer Venous Wound Compression System (25880): 1 unit (untimed) Session Start Time : 1056 Session Stop Time : 1143 Total Time: 47 minutes Amanda Soto PT documented in this encounterMer[facility]07-29-2025 [facility] 03-25-2025 History of Present illness Narrative* Amanda Soto, PT - 03/25/2025 11:40 AM EDT Episode Visit Count: 12 Therapist That Will Accept/Oversee The Plan Of Care: Amanda Soto Start of Care Date: 01/06/25 Onset Date: 08/14/24 (second week of August) Plan of Care Certification Date: 01/06/25 Next Certification Due Date: 03/27/25 Patient Identified by Name and Date of : Yes [facility] PHYSICAL THERAPY WOUND [...] associated orders. TREATMENT: Conservative Sharp Debridement <20cm (39957): 5 mm curette used to selectively remove [...] removed from the wound bed Nonselective Debridement (41249): dressings removed. Cleansed the RIGHT LE with [...] Compression Therapy (Multilayer Venous Wound Compression System) (59311): Skilled interventions: -Skilled knowledge of wound care [...] Treatment/Symptom(s): See above Billing: Noncontact Ultrasound Mist (84852): no charge (bundled) Selective Sharp Debridement <20cm (83644): 1 unit Nonselective debridement (51838): no charge (bundled) Multi-Layer Venous Wound Compression System (12312): 1 unit (untimed) Session Start Time : 1043 Session Stop Time : 1140 Total Time: 57 minutes Amanda Soto PT documented in this encounterMercy Health [facility]07-22-2025 [facility] 03-19-2025 History of Present illness Narrative* Amanda Soto, PT - 03/19/2025 1:35 PM EDT Episode Visit Count: 11 Therapist That Will Accept/Oversee The Plan Of Care: Amanda Soto Start of Care Date: 01/06/25 Onset Date: 08/14/24 (second week of August) Plan of Care Certification Date: 01/06/25 Next Certification Due Date: 03/27/25 Patient Identified by Name and Date of : Yes [facility] PHYSICAL THERAPY WOUND [...] elevation and compression) Response To Pain Intervention: 04/13 burning, sore, achy OBJECTIVE: Patient presents for [...] associated orders. TREATMENT: Conservative Sharp Debridement <20cm (68434): 5 mm curette used to selectively remove [...] removed from the wound bed Nonselective Debridement (17985): dressings removed. Cleansed the RIGHT LE with [...] Compression Therapy (Multilayer Venous Wound Compression System) (97309): Skilled interventions: -Skilled knowledge of wound care [...] Treatment/Symptom(s): See above Billing: Noncontact Ultrasound Mist (79631): no charge (bundled) Selective Sharp Debridement <20cm (35494): 1 unit Nonselective debridement (23124): no charge (bundled) Multi-Layer Venous Wound Compression System (50911): 1 unit (untimed) Session Start Time : 1137 Session Stop Time : 1232 Total Time: 54 minutes Amanda Soto PT documented in this encounterMercy Health Fairfield Hospital07-16-2025 [facility] 03-11-2025 History of Present illness Narrative* Amanda Soto PT - 03/11/2025 11:42 AM EDT Episode Visit Count: 10 Therapist That Will Accept/Oversee The Plan Of Care: Amanda Soto Start of Care Date: 01/06/25 Onset Date: 08/14/24 (second week of August) Plan of Care Certification Date: 01/06/25 Next Certification Due Date: 03/27/25 Patient Identified by Name and Date of : Yes [facility] PHYSICAL THERAPY WOUND [...] associated orders. TREATMENT: Conservative Sharp Debridement <20cm (61944): 5 mm curette used to selectively remove [...] removed from the wound bed Nonselective Debridement (74726): dressings removed. Cleansed the RIGHT LE with [...] Compression Therapy (Multilayer Venous Wound Compression System) (54635): Skilled interventions: -Skilled knowledge of wound care [...] Treatment/Symptom(s): See above Billing: Noncontact Ultrasound Mist (30582): no charge (bundled) Selective Sharp Debridement <20cm (31008): 1 unit Nonselective debridement (48337): no charge (bundled) Multi-Layer Venous Wound Compression System (62888): 1 unit (untimed) Session Start Time : 1036 Session Stop Time : 1142 Total Time: 66 minutes Amanda Soto PT documented in this encounterMercy Health Fairfield Hospital07-08-2025 [facility] 03-03-2025 [facility]06-30-2025 History of Present illness Narrative* Amanda [...] by Name and Date of : Yes [facility] PHYSICAL THERAPY WOUND [...] associated orders. TREATMENT: Conservative Sharp Debridement <20cm (72290): 5 mm curette used to selectively remove [...] removed from the wound bed Nonselective Debridement (55342): dressings removed. Cleansed the RIGHT LE with [...] Compression Therapy (Multilayer Venous Wound Compression System) (17692): Skilled interventions: -Skilled knowledge of wound care [...] Treatment/Symptom(s): See above Billing: Noncontact Ultrasound Mist (71283): no charge (bundled) Selective Sharp Debridement <20cm (49566): 1 unit Nonselective debridement (45640): no charge (bundled) Multi-Layer Venous Wound Compression System (35450): 1 unit (untimed) Session Start Time : 932 Session Stop Time : 1028 Total Time: 56 minutes Amanda Soto PT documented in this encounterMercy Health Fairfield Hospital06-24-2025 Telephone encounter Note * Telephone Encounter - Nikki Beth LPN - 02/25/2025 3:57 PM EDT Per Jammie-- PICC line care Cefepime changed to zosyn Labs rev and discussed. Plts low at 89 and WBC 3.[address] Rodriguez office to get baseline platelet and WBC. If dropped significantly then stop zosyn and remove line. Repeat labs on Follow up in the [facility] w ID in 3 weeks [...] understanding and is in agreement. Leny from [facility] office sent me a secure chat message stating Jammie gave orders to stop the zosyn and nursing to remove the picc line. She's going to fax the summary visit to [facility]. I also called Mary with nursing and Tim with [facility] and gave the above orders. [facility]06-24-[facility]25 Miscellaneous Notes* Telephone Encounter - Nikki eBth LPN - 02/25/2025 3:57 PM EDT Per Jammie-- PICC line care Cefepime changed to zosyn Labs rev and discussed. Plts low at 89 and WBC 3.[address] Rodriguez office to get baseline platelet and WBC. If dropped significantly then stop zosyn and remove line. Repeat labs on Follow up in the [facility] w ID in 3 weeks [...] understanding and is in agreement. Leny from [facility] office sent me a secure chat message stating Jammie gave orders to stop the zosyn and nursing to remove the picc line. She's going to fax the summary visit to [facility]. I also called Mary with nursing and Tim with [facility] and gave the above orders. * Telephone Encounter - Nikki Beth LPN - 02/25/2025 9:10 AM EDT February 24 labs reviewed, no changes Wbc low at 3.5, plt low at 89 No comparisons The results were attached to the M drive Mary Alice has an appt today with Jammie at [facility]. She's currently on Zosyn 3.375g iv q6 with a stop date of March 03. * Telephone Encounter - Yamile Hoover RN - 02/18/2025 5:06 PM EDT Mary from [facility] called [phone] re: SOC for tomorrow as patient will miss doses. I lmovm and provided my direct line for call back. * Telephone Encounter - Yamile Hoover RN - 02/18/2025 2:09 PM EDT HC: [facility] [phone] * Telephone Encounter - Yamile Hoover RN - 02/17/2025 1:35 PM EDTSummary: NEW COPAT-MED CHANGE DX: R LOWER LEG INFECTION TX: ZOSYN 3.375GM IV Q6 STOP: 14 DAYS 03-03-25 LABS: CBC/D ALT CREAT QMON FU: [facility] PICC and first dose scheduled for 02-18-25 at 1:00. LMOVM for Whit at [facility] for SOC . * Telephone Encounter - Lexie Gentile - 02/17/2025 11:14 AM EDT I called Mary Alice and she will call [facility] for scheduling. Lexie Gentile * Telephone Encounter - Lexie Gentile - 02/17/2025 11:09 AM EDT I talked to [facility] Whit and Eva is good with cost of Ángela working on nursing. Lexie Gentile * Telephone Encounter - Lexie Gentile - 02/17/2025 10:45 AM EDT I called delia Sherman back to see where things are standing and waiting for a call back. Lexie Gentile * Telephone Encounter - Lexie Gentile - 02/17/2025 10:36 AM EDT Jerri from the [facility] called to see how things are moving with the PICC placement for Mary Alice because she called the [facility] said she feels her leg is getting worse. . I told Jerri I would check with [facility] and let Mary Alice know. . * Telephone Encounter - Yamile Hoover, KAREN - 02/13/2025 11:14 AM EDT Per email RS recommended two other IV abx options. Whit at [facility] checking cost * Telephone Encounter - Yamile Hoover, KAREN - 02/12/2025 4:37 PM EDT EM RS: Seen in [facility] yesterday. Cefepime 2gm iv q8 for Rt lower leg inf. Per [facility], patient cannot afford IV abx cost of $652.54/week (she doesn't have insurance that will cover home IV abx). What would you like to do? * Telephone Encounter - Yamile Hoover RN - 02/11/2025 5:01 PM EDTSummary: COPAT ACTION-FOR IDC USE ONLY RS-[facility] DX: R LOWER LEG INFECTION TX: CEFEPIME 2GMIV Q8 STOP: 14 DAYS LABS: CBC/D ALT CREAT QMON FU: [facility] 02-25-25 Intake for pharmacy and nursing faxed to I for benefit review. Notify IR when ok for them to schedule picc placement and first dose. documented in this encounterMercy Health [facility] Hospital06-24-2025 [facility] 02-25-2025 History of Present illness Narrative* [...] Repeat labs on Follow up in the [facility] w ID in 3 weeks [...] SUBCUTANEOUS) Inject subcutaneously. Given by Infusion center [facility] Cholecalciferol, Vitamin D3, (VITAMIN D) 25 [...] ambulatory with rollator Home Care Company/Nursing Facility: [facility] (IV therapy) Consent captured for debridement per (Provider) and good until Special Instructions (for example, patient stands at the bedside for exam/dressing): Anticoagulant Therapy: denies Living Situation (ie... 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 DME: [employer] , PH: [phone] SPECIAL NEEDS: Coordination of care Call to Dr. Rodriguez office, [facility] Emotional support N/A OR set-up N/A Weblogic Administrator N/A Incontinence needs N/A DISCHARGED in stable condition to: ambulatory with rollator PLAN/ORDERS: Return to the wound center to see Dr. Jammie ARAUJO (Infectious Disease) in [address] Blackmon discussed getting previous labwork from [place] Repeat bloodwork February Continue aggressive nutritional support [...] Center Leny Saenz RN/DUNG documented in this encounterMercy Health [facility] Hospital06-24-2025 [facility] 02-25-2025 Instructions* Patient Instructions* Lney Saenz RN - 02/25/2025 2:32 PM EDT WOUND CARE INSTRUCTIONS- Mary Alice Ga Wound location: Right Lower Lateral leg [facility] (IV therapy) Continue wound [...] of infection to the Wound Center at [phone] or go to the Emergency Department: Fever or chills Increased drainage Green or yellow drainage Foul odor Increased pain Hardness around the wound Redness, warmth or swelling of the surrounding tissue Color change to the wound Any streaking coming from the wound When contacting the wound center at the ([phone]): Leave a message that includes your full [...] to the wound center to see Dr. Jammie ARAUJO (Infectious Disease) in [address] Blackmon discussed getting previous labwork from [place] Repeat bloodwork February Continue aggressive nutritional support for optimal wound healing STOP IV Zosyn [facility] of to remove PICC line Dr. Nayan Blackmon MD/jeremiah/dung documented in this encounterMercy Health Fairfield Hospital06-24-2025 Telephone encounter Note * Telephone Encounter - Nikki Beth LPN - 02/25/2025 9:10 AM EDT February 24 labs reviewed, no changes Wbc low at 3.5, plt low at 89 No comparisons The results were attached to the M drive Mary Alice has an appt today with Jammie at [facility]. She's currently on Zosyn 3.375g iv q6 with a stop date of March 03. [facility]06-[facility] History of Present illness Narrative* Amanda Soto, PT - 02/24/2025 4:50 PM EDT Episode Visit Count: 8 Therapist That Will Accept/Oversee The Plan Of Care: Amanda Soto Start of Care Date: 01/06/25 Onset Date: 08/14/24 (second week of August) Plan of Care Certification Date: 01/06/25 Next Certification Due Date: 03/27/25 Patient Identified by Name and Date of : Yes [facility] PHYSICAL THERAPY WOUND TREATMENT NOTE ASSESSMENT: Mary Alice Ga tolerated the session with expected soreness/discomfort [...] associated orders. TREATMENT: Conservative Sharp Debridement <20cm (29501): 5 mm curette used to selectively remove [...] removed from the wound bed Nonselective Debridement (48777): dressings removed. Cleansed the RIGHT LE with [...] Compression Therapy (Multilayer Venous Wound Compression System) (09237): deferred application thisdate due to wound center/ID follow up tomorrow. Post Treatment/Symptom(s): See above Billing: Noncontact Ultrasound Mist (10057): no charge (bundled) Selective Sharp Debridement <20cm (42726): 1 unit Nonselective debridement (01340): no charge (bundled) Session Start Time : 154 Session Stop Time : 165 Total Time: 69 minutes Amanda Soto PT documented in this encounterMercy Health Fairfield Hospital06-23-2025 [facility] 02-18-2025 Telephone encounter Note* Telephone Encounter - Yamile Hoover RN - 02/18/2025 5:06 PM EDT Mary from [facility] called [phone] re: SOC for tomorrow as patient will miss doses. I lmovm and provided my direct line for call back. [facility]06-17-20[facility] Telephone encounter Note* Telephone Encounter - Yamile Hoover RN - 02/18/2025 2:09 PM EDT HC: [facility] [phone] [facility]06-17-2025 [facility]06-16-2025 [facility] 02-17-2025 History of Present illness Narrative* Amanda Soto, PT - 02/17/2025 4:27 PM EDT Episode Visit Count: 7 Therapist That Will Accept/Oversee The Plan Of Care: Amanda Soto Start of Care Date: 01/06/25 Onset Date: 08/14/24 (second week of August) Plan of Care Certification Date: 01/06/25 Next Certification Due Date: 03/27/25 Patient Identified by Name and Date of : Yes [facility] PHYSICAL THERAPY WOUND [...] associated orders. TREATMENT: Conservative Sharp Debridement <20cm (17308): 5 mm curette used to selectively remove [...] removed from the wound bed Nonselective Debridement (05355): dressings removed. Cleansed the RIGHT LE with [...] Compression Therapy (Multilayer Venous Wound Compression System) (10061): Skilled interventions: -Skilled knowledge of wound care [...] Treatment/Symptom(s): See above Billing: Noncontact Ultrasound Mist (34988): no charge (bundled) Selective Sharp Debridement <20cm (58124): 1 unit Nonselective debridement (43941): no charge (bundled) Multi-Layer Venous Wound Compression System (85987): 1 unit (untimed) Session Start Time : 1540 Session Stop Time : 1633 Total Time: 53 minutes Amanda Soto PT documented in this encounterMercy Health Fairfield Hospital06-16-2025 Telephone encounter Note * Telephone Encounter - Yamile Hoover RN - 02/17/2025 1:35 PM EDTSummary: NEW COPAT-MED CHANGE DX: R LOWER LEG INFECTION TX: ZOSYN 3.375GM IV Q6 STOP: 14 DAYS 03-03-25 LABS: CBC/D ALT CREAT QMON FU: [facility] PICC and first dose scheduled for 02-18-25 at 1:00. LMOVM for Antwanisha at [facility] for SOC . [facility]06-16-[facility] Telephone encounter Note* Telephone Encounter - Lexie Gentile - 02/17/2025 11:14 AM EDT I called Mary Alice and she will call [facility] for scheduling. Lexie Gentile [facility]06-16-[facility]25 Telephone encounter Note* Telephone Encounter - Lexie Gentile - 02/17/2025 11:09 AM EDT I talked to hussein Sherman and Angieamarjitpeg is good with cost of Ángela working on nursing. Lexie Gentile [facility]06-16-2025 Telephone encounter Note* Telephone Encounter - Lexie Gentile - 02/17/2025 10:45 AM EDT I called hussein Sherman back to see where things are standing and waiting for a call back. Lexie Gentile [facility]06-16-20[facility] Telephone encounter Note* Telephone Encounter - [...] chills, or feeling ill at this time. [facility]06-16-2025 Miscellaneous Notes* Telephone Encounter - Ileana Molina RN - 02/17/2025 10:39 AM EDT Received phone message from pt, pt concerned that she has not received a call from hospital regarding PICC line insertion and IV antibiotics. Contacted PICC team, Per PICC team awaiting approval fromDr. Perry office. Spoke to Lexie at Dr. Vicky reilly who states they are working on approval and will notify patient. Call to patient to notify of above, instructed patient that if she feels infection is getting worse to Go to Er, pt denies any fever, chills, or feeling ill at this time. documented in this encounterMercy Health Fairfield Hospital06-16-2025 Telephone encounter Note * Telephone Encounter - Lexie Gentile - 02/17/2025 10:36 AM EDT Jerri from the [facility] called to see how things are moving with the PICC placement for Mary Alice because she called the [facility] said she feels her leg is getting worse. . I told Jerri I would check with [facility] and let Mary Alice know. . [facility]06-12-2025 Telephone encounter Note* Telephone Encounter - Yamile Hoover RN - 02/13/2025 11:14 AM EDT Per email RS recommended two other IV abx options. Whit at I checking cost [facility]06-11-2025 Telephone encounter Note* Telephone Encounter - Yamile Hoover RN - 02/12/2025 4:37 PM EDT EM RS: Seen in [facility] yesterday. Cefepime 2gm iv q8 for Rt lower leg inf. Per [facility], patient cannot afford IV abx cost of $652.54/week (she doesn't have insurance that will cover home IV abx). What would you like to do? [facility]06-10-2025 Telephone encounter Note* Telephone Encounter - Yamile Hoover RN - 02/11/2025 5:01 PM EDTSummary: COPAT ACTION-FOR IDC USE ONLY RS-[facility] DX: R LOWER LEG INFECTION TX: CEFEPIME 2GMIV Q8 STOP: 14 DAYS LABS: CBC/D ALT CREAT QMON FU: [facility] 02-25-25 Intake for pharmacy and nursing faxed to I for benefit review. Notify IR when ok for them to schedule picc placement and first dose. [facility]06-10-2025 ValentinaMadison [id number] History of Present illness Narrative* Nayan Blackmon [...] SUBCUTANEOUS) Inject subcutaneously. Given by Infusion center [facility] Cholecalciferol, Vitamin D3, (VITAMIN D) 25 [...] Therapy: denies Living Situation (ie... 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 weekly wraps from Amanda Soto DME: [employer] , PH: [phone] SPECIAL NEEDS: Coordination of care Amanda Soto PT Emotional support N/A OR set-up N/A Weblogic Administrator N/A Incontinence needs N/A DISCHARGED in stable condition to: ambulatory with rollator PLAN/ORDERS: Return to the wound center to see Dr. Jammie ARAUJO (Infectious Disease) in 2 weeks Continue [...] to ANY of questions 5-9, [facility] documented in this encounterMercy Health [facility] Hospital06-10-2025 Instructions* Patient Instructions* Ayanna Staton RN [...] of infection to the Wound Center at [phone] or go to the Emergency Department: Fever or chills Increased drainage Green or yellow drainage Foul odor Increased pain Hardness around the wound Redness, warmth or swelling of the surrounding tissue Color change to the wound Any streaking coming from the wound When contacting the wound center at the ([phone]): Leave a message that includes your full [...] to the wound center to see Dr. Jammie ARAUJO (Infectious Disease) in 2 weeks Continue aggressive nutritional support for optimal wound healing PICC line to be scheduled - the hospital will contact you with date and time Home care will be in contact with you to teach you how to infuse IV Antibiotics Dr. Nayan Blackmon MD/mjcarmel/lt documented in this encounterMercy Health [facility]06-10-2025 [facility] 02-10-2025 History of Present illness Narrative* Amanda Soto, PT - 02/10/2025 11:40 AM EDT Episode Visit Count: 6 Therapist That Will Accept/Oversee The Plan Of Care: Amanda Soto Start of Care Date: 01/06/25 Onset Date: 08/14/24 (second week of August) Plan of Care Certification Date: 01/06/25 Next Certification Due Date: 03/27/25 Patient Identified by Name and Date of : Yes [facility] PHYSICAL THERAPY WOUND [...] associated orders. TREATMENT: Conservative Sharp Debridement <20cm (37189) and >20cm (97723): 5 mm curette used to selectively remove [...] removed from the wound bed Nonselective Debridement (95811): dressings removed. Cleansed the RIGHT LE with [...] Treatment/Symptom(s): See above Billing: Noncontact Ultrasound Mist (49551): no charge Selective Sharp Debridement <20cm (50831): 1 unit Selective Sharp Debridement >20cm (18884): 1 unit Nonselective debridement (19007): no charge Session Start Time : 1035 Session Stop Time : 1138 Total Time: 63 minutes Amanda Soto PT documented in this encounterMercy Health [facility] Hospital06-09-2025 [facility] 02-03-2025 History of Present illness Narrative* [...] by Name and Date of : Yes [facility] PHYSICAL THERAPY WOUND [...] associated orders. TREATMENT: Conservative Sharp Debridement <20cm (79354): 5 mm curette used to selectively remove [...] removed from the wound bed Nonselective Debridement (58662): dressings removed. Cleansed the RIGHT LE with [...] Compression Therapy (Multilayer Venous Wound Compression System) (02566): Skilled interventions: -Skilled knowledge of wound care [...] Treatment/Symptom(s): See above Billing: Noncontact Ultrasound Mist (73298): no charge (bundled) Selective Sharp Debridement <20cm (00371): 1 unit Nonselective debridement (42570): no charge (bundled) Multi-Layer Venous Wound Compression System (04419): 1 unit (untimed) Session Start Time : 1545 Session Stop Time : 1645 Total Time: 60 minutes Amanda Soto PT documented in this encounterMer[facility] 01-28-2025 [facility]05-27-2025 History of Present illness Narrative* Amanda Soto, PT - 01/28/2025 11:24 AM EDT Episode Visit Count: 4 Therapist That Will Accept/Oversee The Plan Of Care: Amanda Soto Start of Care Date: 01/06/25 Onset Date: 08/14/24 (second of August) Plan of Care Certification Date: 01/06/25 Next Certification Due Date: 03/27/25 Patient Identified by Name and Date of : Yes [facility] PHYSICAL THERAPY WOUND [...] off the bed. Reports vascular testing in [place] was ok. Also having issues with her spousewhich makes sleeping interrupted. She feels exhausted. Pain Tool: Verbal (Numeric Rating or Visual Analog Scale) Pain Level: 7 Pain Location: Leg-Right Description: Burning, Sore, Aching, Tenderness (stinging) Duration: Continuous Intervention/Comfort measure: Medication, Reposition, Relaxation, Distractions, Emotional Support/Reassurance, Positioning, Other: See comment (compression and elevation as tolerated) Response To Pain Intervention: 8 burning, sore OBJECTIVE: Patient presents for follow-up [...] associated orders. TREATMENT: Conservative Sharp Debridement <20cm (94562): 5 mm curette used to selectively remove [...] removed from the wound bed Nonselective Debridement (34482): dressings removed. RIGHT LE blotted dry and [...] Compression Therapy (Multilayer Venous Wound Compression System) (99722): Skilled interventions: -Skilled knowledge of wound care [...] Treatment/Symptom(s): See above Billing: Noncontact Ultrasound Mist (58866): no charge (bundled) Selective Sharp Debridement <20cm (79755): 1 unit Nonselective debridement (85325): no charge (bundled) Multi-Layer Venous Wound Compression System (93689): 1 unit (untimed) Session Start Time : 1033 Session Stop Time : 1138 Total Time: 65 minutes Amanda Soto PT documented in this encounterMer[facility]05-21-[facility] Evaluation note* Diagnosis Onset Date Resolution Status Admit Date Back pain acute January 22, 2025 11:42am Compression fracture of lumb ar vertebra acute January 22, 2025 1 1:42am Breast cancer acute January 23, 025 12:32pm [facility] Work Phone: 1(946) 723-582505-21-2025 Evaluation note* Diagnosis Onset Date Resolution Status Admit Date Back pain acute January 22, 2025 11:42am Compression fracture of lumb ar vertebra acute January 22, 2025 1 1:42am Breast cancer acute January 23, 025 12:32pm Chronic pain chronic April 29, 2025 12:39pm Cirrhosis chronic April 29 025 12:39pm Dyspnea chronic April 29 025 12:39pm [facility] Work Phone: 1(727) 463-728505-21-2025 Evaluation note* Diagnosis Onset Date Resolution Status Admit Date Back pain acute January 22, 2025 11:42am Compression fracture of lumb ar vertebra acute January 22, 2025 1 1:42am Breast cancer acute January 23, 025 12:32pm Chronic pain chronic April 29, 2025 12:39pm Cirrhosis chronic April 29 025 12:39pm Dyspnea chronic April 29 025 12:39pm Compression fracture of lumb ar vertebra acute Vanessa 4th, 2 025 1:03pm History of kyphoplasty acute Se ptember 2024 1:03pm Lumbar stenosis with neurogenic claudication acute Septembe r 2024 1:03pm Osteoporosis chronic May 1:03pm CHF (congestive heart failure) acute May 21, 2025 8:04am Compression fracture of lumb ar vertebra acute May 21, 2025 8:04am Decompensated hepatic cirrhosis acute May 21, 2025 8:04am Osteoporosis chronic May 212024 8:04am [facility] Work Phone: 1(330) 136-877405-19-2025 [facility]05-12-2025 History of Present illness Narrative* Amanda Soto, PT - 01/13/2025 10:35 AM EDT Episode Visit Count: 2 Therapist That Will Accept/Oversee The Plan Of Care: Amanda Soto Start of Care Date: 01/06/25 Onset Date: 08/14/24 (second week of August) Plan of Care Certification Date: 01/06/25 Next Certification Due Date: 03/27/25 Patient Identified by Name and Date of : Yes [facility] PHYSICAL THERAPY WOUND [...] associated orders. TREATMENT: Conservative Sharp Debridement <20cm (71235) & >20cm (37016): 5 mm curette used to selectively remove [...] removed from the wound bed Nonselective Debridement (65615): dressings removed. RIGHT LE cleansed with warm [...] Compression Therapy (Multilayer Venous Wound Compression System) (09094): Skilled interventions: -Skilled knowledge of wound care [...] Treatment/Symptom(s): See above Billing: Noncontact Ultrasound Mist (43740): no charge (bundled) Selective Sharp Debridement <20cm (91688): 1 unit Selective Sharp Debridement >20cm (02081): 1 unit Nonselective debridement (13975): no charge (bundled) Multi-Layer Venous Wound Compression System (32662): 1 unit (untimed) Session Start Time : 940 Session Stop Time : 1033 Total Time: 53 minutes Amanda Soto PT documented in this encounterMercy [facility]05-12-2025 [facility] 01-06-2025 History of Present illness Narrative* [...] by Name and Date of : Yes [facility] PHYSICAL THERAPY WOUND [...] of Visits Planned: 24 Planned Treatment Interventions: Self-halfway management (81717), Patient/Family/Caregiver Education, Wound Selective debridement <20cm, Selective [...] patient/family. SUBJECTIVE: Pt states after she left [place] in the late fall, her R leg was doing really well. She was compliant with her compression dressing. But, she had issues when her spouse went back to the hospital, was not doing well with her support stockings as she could not get them off by herself. The wound re-opened. Tried care in [place], but the wound worsened. Back in [place] until next fall. Having ravi hard time with sleeping-- wound wakes her up. Pain Tool: Verbal (Numeric Rating or Visual Analog Scale) Pain Level: 4 Pain Location: Leg-Right Description: Burning (Blow torch on it.) Duration: Continuous Intervention/Comfort measure: Medication, Reposition, Relaxation, Distractions, Education, Emotional Support/Reassurance, Positioning, Other: See comment (compression and elevation) Response To Pain Intervention: patient states pain is ok at exit. -12/12 Functional Limitations: sleeping and walking, increased care [...] nearly closed prior to patient's return to [place] Assessment:: + risk due to orthopedic [...] States/Identifies TREATMENT: Evaluation Conservative Sharp Debridement <20cm (80042) & >20cm (08828): 5 mm curette used to selectively remove [...] removed from the wound bed Nonselective Debridement (71230): home dressings removed. RIGHT LE cleansed with [...] Compression Therapy (Multilayer Venous Wound Compression System) (62679): Skilled interventions: -Skilled knowledge of wound care [...] See abov Billing: Evaluation - Moderate Complexity (08613) Noncontact Ultrasound Mist (18163): no charge (bundled) Selective Sharp Debridement <20cm (50634): 1 unit Selective Sharp Debridement >20cm (72520): 1 unit Nonselective debridement (54356): no charge (bundled) Multi-Layer Venous Wound Compression System (86178): 1 unit (untimed) Session Start Time : 938 Session Stop Time : 1046 Total time: 67 minutes Amanda Soto PT documented in this encounterMer[facility]05-05-2025 [facility] 06-26-2024 [facility]10-23-2024 History of Present illness Narrative* Amanda [...] by Name and Date of : Yes [facility] PHYSICAL THERAPY WOUND TREATMENT AND DISCONTINUANCE OF CARE PLAN OF CARE UPDATE: Patients RIGHT LE wounds are nearly resolved. The medial wounds are closed and stable. The lateral wound is 99% closed. Great overall progress has been made. Care is being discontinued as patient is leaving to return to [place] this weekend. Patient has been educated on self care principles once the current compression dressing is removed. Patient to seek additional wound care services as needed after she gets to [place]. Patient is pleased with overall improvement and [...] tenderness is noted. Patient voices understanding of long winder tender edema management via compression garments, leg elevation,and exercise. MOSTLY MET: pt voices understanding and intent to comply. PLAN: discontinue PT due to patient relocation to [place] SUBJECTIVE: Patient has much back pain. Is leaving for [place] on Monday. Is seeing a security services specialist the Monday she gets there for [...] associated orders. TREATMENT: Conservative Sharp Debridement <20cm (63209): 3 mm curette used to remove slough [...] prn -<20cm2 nonviable tissue removed Nonselective Debridement (40163): The dressing was removed. The RIGHT LE [...] Compression Therapy (Multilayer Venous Wound Compression System) (30871): Skilled interventions: -Skilled knowledge of wound care [...] home per herusual. Self Care/ Home Management (62903): education on removal of the compression dressing [...] to follow up with wound care in [place] pending wound status. Skilled Intervention Skilled judgment in the selection of proper self care/home management based on clinical presentation, deficits, and needs. Educated the patient regarding recommendations and provided verbal and feedback instruction to facilitate compliance. Reviewed patient specific diagnosis in relation to activities of daily living/home management. Post Treatment/Symptom(s): See above Adverse event? No Billing: Noncontact Ultrasound Mist (30066): no charge (bundled) Selective Sharp Debridement <20cm (32114): 1 unit Nonselective debridement (63941): no charge (bundled) Self care/ Home Management (51787): 1:1 time: 1 unit: 8-22 mins Multi-Layer Venous Wound Compression System (07887): 1 unit (untimed) Session Start Time : 1434 Session Stop Time : 1530 Total Time: 56 minutes Amanda Soto PT documented in this encounterMercy Health [facility]10-15-2024 History of Present illness Narrative* Amanda Soto, PT - 06/18/2024 9:25 AM EDT Episode Visit Count: 16 Medicare visits current year: 16 Therapist That Will Accept/Oversee The Plan Of Care: Amanda Soto Start of Care Date: 01/24/24 Onset Date: 01/23/21 Plan of Care Certification Date: 05/28/24 Next Certification Due Date: 08/27/24 Patient Identified by Name and Date of : Yes [facility] PHYSICAL THERAPY WOUND TREATMENT NOTE ASSESSMENT: patient's RIGHT LE is progressing nicely. The medial wound cluster remains closed and is stable. The lateral wound is reducing in size. PLAN FOR NEXT VISIT: recheck next week. Continue with active wound care until patient departs for [place] SUBJECTIVE: Patient having much more issues with her back than her leg. States she still has some tenderness/soreness/twinges of pain, but her back is bothering her more than anything else. Still planning on leaving for [place] on Jun 29. Pain Tool: Verbal (Numeric [...] associated orders. TREATMENT: Conservative Sharp Debridement <20cm (30370): 3 mm curette used to remove slough [...] prn -<20cm2 nonviable tissue removed Nonselective Debridement (10613): The dressing was removed. The RIGHT LE [...] Compression Therapy (Multilayer Venous Wound Compression System) (83911): Skilled interventions: -Skilled knowledge of wound care [...] Adverse event? No Billing: Noncontact Ultrasound Mist (68343): no charge (bundled) Selective Sharp Debridement <20cm (52141): 1 unit Nonselective debridement (14526): no charge (bundled) Multi-Layer Venous Wound Compression System (30804): 1 unit (untimed) Session Start Time : 836 Session Stop Time : 923 Total Time: 47 minutes Amanda Soto PT documented in this encounterMercy Health [facility]10-15-2024 [facility] 06-12-2024 History of Present illness Narrative* Amanda Soto, PT - 06/12/2024 1:30 PM EDT Episode Visit Count: 15 Medicare visits current year: 15 Therapist That Will Accept/Oversee The Plan Of Care: Amanda Soto Start of Care Date: 01/24/24 Onset Date: 01/23/21 Plan of Care Certification Date: 05/28/24 Next Certification Due Date: 08/27/24 Patient Identified by Name and Date of : Yes [facility] PHYSICAL THERAPY WOUND TREATMENT NOTE ASSESSMENT: patient's RIGHT LE with much overall improvement. Her medial wound cluster is now closed, but remains fragile. The lateral wound is much smaller but remains painful Continued wound care imperative. Patient to be relocating to [place] soon and could benefit from as much [...] associated orders. TREATMENT: Conservative Sharp Debridement <20cm (39009): 3 mm curette used to remove slough [...] prn -<20cm2 nonviable tissue removed Nonselective Debridement (05757): The dressing was removed. The RIGHT LE [...] Compression Therapy (Multilayer Venous Wound Compression System) (30842): Skilled interventions: -Skilled knowledge of wound care [...] Adverse event? No Billing: Noncontact Ultrasound Mist (48620): no charge (bundled) Selective Sharp Debridement <20cm (47465): 1 unit Nonselective debridement (00802): no charge (bundled) Multi-Layer Venous Wound Compression System (08391): 1 unit (untimed) Session Start Time : 1228 Session Stop Time : 1328 Total Time: 60 minutes Amanda Soto PT documented in this encounterMercy Health [facility] Hospital10-09-2024 [facility] 06-12-2024 NoteHNO ID: [id number] Author: MONSE MERLOS PA-C Service: ? Author Type: Physician Tower Foreman Type: Progress Notes Filed: 06/17/2024 19:38 Note Text: Monse Merlos [facility]-C [facility] [address] [place] [address] 06/12/2024 ASSESSMENT AND PLAN: Assessment : Encounter [...] She had some plain radiographs done at [facility], but did not bring those here for review today. 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 This includes appf-rd-zary time, review of chart records regarding conservative care history, spine-pertinent imaging, and communication/care coordination with referring provider, problem-specific history-taking and counseling/education regarding treatment options. cc: Marisela Mccarty [address] [address] Results of consultation to be transmitted via electronic medical record for those providers who practice within [facility] or with access to [facility] via [facility], or via letter. ######################################################################## [...] 1 mg tablet pa (more content not included)...[facility]10-09-2024 History of Present illness Narrative* Monse Merlos PA-C - 06/12/2024 10:14 AM EDT Images from the original note were not included. Monse Merlos PA-C [facility] [address] [place] [address] 06/12/2024 ASSESSMENT AND PLAN: Assessment : Encounter [...] She had some plain radiographs done at [facility], but did not bring those here for review today. SUMMARY/PLAN: She will try to provide her outside lumbar plain radiographs for my future review She will start supervised PT as recommended here and then if she travels down to [place] as his hernormal winter routine, she would continuous pickling line pickler the PT there and finish out her [...] today with this patient visit. This includes ugpv-ax-[id number] time, review of chart records regarding conservative care history, spine- pertinent imaging, and communication/care coordination with referring provider, problem-specific history-taking and counseling/education regarding treatment options. cc: Marisela Mccarty [address] [place], [place] [id number] Results of consultation to be transmitted via electronic medical record for those providers who practice within [facility] or with access to [facility] via [facility], or via letter. ######################################################################## [...] STUDIES: See discussion above documented in this encounterMercy Health [facility]10-01-2024 History of Present illness Narrative* Amanda Soto, PT - 06/04/2024 10:31 AM EDT Episode Visit Count: 14 Medicare visits current year: 14 WOUND Therapist That Will Accept/Oversee The Plan Of Care: Amanda Soto Start of Care Date: 01/24/24 Onset Date: 01/23/21 Plan of Care Certification Date: 05/28/24 Next Certification Due Date: 08/27/24 Patient Identified by Name and Date of : Yes [facility] PHYSICAL THERAPY WOUND [...] iswarranted. Patient to be relocating back to [place], tentatively at the end of June. Continued [...] (compression and elevation) Response To Pain Intervention: -11/11 on exit, R wound pain OBJECTIVE: Patient [...] associated orders. TREATMENT: Conservative Sharp Debridement <20cm (69119): 3 mm curette and a scalpel for [...] prn -<20cm2 nonviable tissue removed Nonselective Debridement (02790): The dressing was removed. The RIGHT LE [...] Compression Therapy (Multilayer Venous Wound Compression System) (94061): Skilled interventions: -Skilled knowledge of wound care [...] Adverse event? No Billing: Noncontact Ultrasound Mist (61228): no charge (bundled) Selective Sharp Debridement <20cm (20646): 1 unit Nonselective debridement (54770): no charge (bundled) Multi-Layer Venous Wound Compression System (26344): 1 unit (untimed) Session Start Time : 935 Session Stop Time : 103 Total Time: 55 minutes Amanda Soto PT documented in this encounterMercy Health [facility] Hospital2024 History of Present illness Narrative* Amanda [...] by Name and Date of : Yes [facility] PHYSICAL THERAPY WOUND [...] pain: not met Patient voices understanding of nursing home edema management via compression garments, leg elevation,and exercise.:addressed but reinforcement to continue with progressive wound healing. PLAN: Follow up for one visit(s) per week for twelve weeks for, Selective debridement <20cm, Nonselective debridement, Noncontact Ultrasound Mist, Compression Therapy (dressing), Patient/ Caregiver Education, and Self Care/ Home Management *patient with plans to return to [place] at the end of the month if [...] (compression and elevation) Response To Pain Intervention: 10 on exit, sore;tender PROMIS Scales *noted decrease [...] associated orders. TREATMENT: Conservative Sharp Debridement <20cm (40140): 3 mm curette used to selectively remove [...] prn -<20cm2 nonviable tissue removed Nonselective Debridement (45898): The dressing was removed. The RIGHT LE [...] Compression Therapy (Multilayer Venous Wound Compression System) (62450): Skilled interventions: -Skilled knowledge of wound care [...] Adverse event? No Billing: Noncontact Ultrasound Mist (30830): no charge (bundled) Selective Sharp Debridement <20cm (86822): 1 unit Nonselective debridement (00213): no charge (bundled) Multi-Layer Venous Wound Compression System (48017): 1 unit (untimed) Session Start Time : 947 Session Stop Time : 1042 Total Time: 55 minutes Amanda Soto PT documented in this encounterMercy Health Fairfield Hospital09-17-2024 History of Present illness Narrative* Amanda Soto PT - 05/21/2024 10:35 AM EDT Episode Visit Count: 12 Medicare visits current year: 12 Therapist That Will Accept/Oversee The Plan Of Care: Liseth Alanis Start of Care Date: 01/24/24 Onset Date: 01/23/21 Plan of Care Certification Date: 02/29/24 (wound care) Next Certification Due Date: 05/08/24 Patient Identified by Name and Date of : Yes [facility] PHYSICAL THERAPY WOUND [...] is warranted. Patient with pending return to [place] in late June. PLAN FOR NEXT VISIT: [...] associated orders. TREATMENT: Conservative Sharp Debridement <20cm (75313): 3 mm curette used to selectively remove [...] prn -<20cm2 nonviable tissue removed Nonselective Debridement (74736): The dressing was removed. The RIGHT LE [...] Compression Therapy (Multilayer Venous Wound Compression System) (01428): Skilled interventions: -Skilled knowledge of wound care [...] Adverse event? No Billing: Noncontact Ultrasound Mist (85288): no charge (bundled) Selective Sharp Debridement <20cm (66809): 1 unit Nonselective debridement (59642): no charge (bundled) Multi-Layer Venous Wound Compression System (83647): 1 unit (untimed) Session Start Time : 943 Session Stop Time : 1033 Total Time: 50 minutes Amanda Soto PT documented in this encounterMercy Health [facility] Hospital09-10-2024 History of Present illness Narrative* Amanda Soto, PT - 05/14/2024 10:28 AM EDT Episode Visit Count: 11 Medicare visits current year: 11 Therapist That Will Accept/Oversee The Plan Of Care: Lisethfantasma Morenoal Start of Care Date: 01/24/24 Onset Date: 01/23/21 Plan of Care Certification Date: 02/29/24 (wound care) Next Certification Due Date: 05/08/24 Patient Identified by Name and Date of : Yes [facility] PHYSICAL THERAPY WOUND [...] patient and she was transported to the [facility]. Nurses from the family medicine department assisted [...] associated orders. TREATMENT: Conservative Sharp Debridement <20cm (90059): 3 mm curette used to selectively remove [...] prn -<20cm2 nonviable tissue removed Nonselective Debridement (36208): The dressing was removed. The RIGHT LE [...] Compression Therapy (Multilayer Venous Wound Compression System) (24337): Skilled interventions: -Skilled knowledge of wound care [...] comply. *post care, patient transported to the [facility] via w/c and nursing from the [address] [place] [id number] transported the pt to the ER per pt request due to her back and hip pain. Post Treatment/Symptom(s): See above Adverse event? No Billing: Noncontact Ultrasound Mist (80932): no charge (bundled) Selective Sharp Debridement <20cm (97906): 1 unit Nonselective debridement (83465): no charge (bundled) Multi-Layer Venous Wound Compression System (42536): 1 unit (untimed) Session Start Time : 937 Session Stop Time : 1024 Total Time: 47 minutes Amanda Soto PT documented in this encounterMercy Health [facility]09-06-2024 History of Present illness Narrative* Amanda Soto, PT - 05/10/2024 1:30 PM EDT Episode Visit Count: 10 Medicare visits current year: 10 Therapist That Will Accept/Oversee The Plan Of Care: Liseth Alanis Start of Care Date: 01/24/24 Onset Date: 01/23/21 Plan of Care Certification Date: 02/29/24 (wound care) Next Certification Due Date: 05/08/24 Patient Identified by Name and Date of : Yes [facility] PHYSICAL THERAPY WOUND [...] associated orders. TREATMENT: Conservative Sharp Debridement <20cm (43011): 3 mm curette used to selectively remove [...] prn -<20cm2 nonviable tissue removed Nonselective Debridement (74768): The dressing was removed. The RIGHT LE [...] Compression Therapy (Multilayer Venous Wound Compression System) (33822): Skilled interventions: -Skilled knowledge of wound care [...] Adverse event? No Billing: Noncontact Ultrasound Mist (44888): no charge (bundled) Selective Sharp Debridement <20cm (10213): 1 unit Nonselective debridement (44171): no charge (bundled) Multi-Layer Venous Wound Compression System (29941): 1 unit (untimed) Session Start Time : 1240 Session Stop Time : 1328 Total Time: 48 minutes Amanda Soto PT documented in this encounterMer[facility]24 Telephone encounter Note * Telephone Encounter - Lisa Shirley - 05/09/2024 3:13 PM EDT Spoke with patient to offer appointment with Amanda tomorrow at 12 (noon) for wound therapy. Patientasked to call back because she was not home and needed to check her schedule first. Patient said she would call back within the next half hour [facility]09-05[facility] Miscellaneous Notes* Telephone Encounter - Lisa [...] available for wound therapy. documented in this encounterMer[facility]09-05-2024 Telephone encounter Note * Telephone Encounter - Lisa Shirley - 05/09/2024 2:02 PM EDT Patient is currently scheduled for Amanda's first available on 05/14/2024. [facility]09-04[facility] Telephone encounter Note* Telephone Encounter - Skylar Herrera - 05/08/2024 7:26 AM EDT Lvm for patient to call back and schedule appointment due to provider being out sick. May be scheduled for Amanda's first available for wound therapy. [facility]08-27[facility] History of Present illness Narrative* Amanda [...] by Name and Date of : Yes [facility] PHYSICAL THERAPY WOUND [...] when she plans to relocate back to [place]. PLAN FOR NEXT VISIT: continue with acitve [...] (compression and elevation) Response To Pain Intervention: 2-11/11, slight burning medially OBJECTIVE: Patient presents for [...] associated orders. TREATMENT: Conservative Sharp Debridement <20cm (03234): 3 mm curette used to selectively remove [...] prn -<20cm2 nonviable tissue removed Nonselective Debridement (93448): The dressing was removed. The RIGHT LE [...] Compression Therapy (Multilayer Venous Wound Compression System) (42292): Skilled interventions: -Skilled knowledge of wound care [...] Adverse event? No Billing: Noncontact Ultrasound Mist (81355): no charge (bundled) Selective Sharp Debridement <20cm (91814): 1 unit Nonselective debridement (72999): no charge (bundled) Multi-Layer Venous Wound Compression System (24552): 1 unit (untimed) Session Start Time : 1434 Session Stop Time : 1533 Total Time: 59 minutes Amanda Soto PT documented in this encounterMercy Health [facility]field Hospital08-27-2024 NoteHNO ID: [id number] Author: LISETH ALANIS PT Service: ? Author [...] and treatment included: Therapeutic exercise, Neuromuscular re-education, Self-halfway management, and Gait training. Goals for Episode [...] to reflect decreased fall risk. -- MET Jessamine in home exercise program including cardiovascular exercise. -- MET - plans to go to the [facility] where her DTR is a review trainer Complete 6 MWT x1545 ft or [...] facilitated with verbal, visual, and tactile cueing. [facility]: 1: discussed correct adjustment of SC 2: discussed continued completion of HEP and progressing with review trainer 3: discussed posture 4: provided HEP hand outs from previous visits per pt. request Skilled Intervention: Skilled judgment in the selection of proper modification for activity of daily living/home management based on clinical presentation, deficits, and needs. Provided written i (more content not included)...[facility] 04-30-2024 History of Present illness Narrative* [...] and treatment included: Therapeutic exercise, Neuromuscular re-education, Self-halfway management, and Gait training. Goals for Episode [...] to reflect decreased fall risk. -- MET Jessamine in home exercise program including cardiovascular exercise. -- MET - plans to go to the [facility] where her DTR is a review trainer Complete 6 MWT x1545 ft or [...] facilitated with verbal, visual, and tactile cueing. [facility] Management: 1: discussed correct adjustment of SC 2: discussed continued completion of HEP and progressing with review trainer 3: discussed posture 4: provided HEP [...] 814 Session Stop Time : 854 Liseth Alanis, PT documented in this encounterMercy Health [facility]08-21-2024 History of Present illness Narrative* Amanda [...] by Name and Date of : Yes [facility] PHYSICAL THERAPY WOUND [...] pain: not met Patient voices understanding of nursing home edema management via compression garments, leg elevation,and [...] closures. States her leg has been ok. shredder tender laterally. Patient rating of condition: better [...] associated orders. TREATMENT: Conservative Sharp Debridement <20cm (52053): 3 mm curette used to selectively remove [...] prn -<20cm2 nonviable tissue removed Nonselective Debridement (33066): The dressing was removed. The RIGHT LE [...] Compression Therapy (Multilayer Venous Wound Compression System) (70791): Skilled interventions: -Skilled knowledge of wound care [...] rendered are medically necessary. Noncontact Ultrasound Mist (93376): no charge (bundled) Selective Sharp Debridement <20cm (45667): 1 unit Nonselective debridement (56828): no charge (bundled) Multi-Layer Venous Wound Compression System (63943): 1 unit (untimed) Session Start Time : 951 Session Stop Time : 1049 Total Time: 58 minutes Amanda Soto PT documented in this encounterMercy Health [facility]field Hospital08-20-2024 NoteHNO ID: [id number] Author: LISETH ALANIS PT Service: ? Author [...] Session Stop Time : 1458 Liseth Alanis, [facility]08-20-2024 History of Present illness Narrative* Liseth [...] 1458 Liseth Alanis PT documented in this encounterMercy Health Fairfield Hospital08-20-2024 NoteHNO ID: [id number] Author: GT YIN, DO Service: ? Author Type: Physician Type: Progress Notes Filed: 05/23/2024 16:21 Note Text: [facility] [place] DEPARTMENT OF VASCULAR SURGERY OUTPATIENT VISIT DATE [...] vein at the knee crease. An incompetent manager of recruiting is noted at mid calf and another [...] Ga DATE: April 23, 2024 TIME: 11:05 [facility]08-20-2024 History of Present illness Narrative* Gt iYn DO - 04/23/2024 11:04 AM EDT Images from the original note were not included. [facility] [place] DEPARTMENT OF VASCULAR SURGERY OUTPATIENT VISIT DATE [...] vein at the knee crease. An incompetent manager of recruiting is noted at mid calf and another [...] 2024 TIME: 11:05 AM documented in this encounterMercy Health Fairfield Hospital08-13-2024 History of Present illness Narrative* Amanda Soto, PT - 04/16/2024 3:45 PM EDT Episode Visit Count: 7 Medicare visits current year: 7 Therapist That Will Accept/Oversee The Plan Of Care: Liseth Alanis Start of Care Date: 01/24/24 Onset Date: 01/23/21 Plan of Care Certification Date: 03/13/24 Next Certification Due Date: 05/08/24 Patient Identified by Name and Date of : Yes [facility] PHYSICAL THERAPY WOUND [...] associated orders. TREATMENT: Conservative Sharp Debridement <20cm (43269): 3 mm curette used to selectively remove [...] prn -<20cm2 nonviable tissue removed Nonselective Debridement (46612): The dressing was removed. The RIGHT LE [...] Compression Therapy (Multilayer Venous Wound Compression System) (03644): Skilled interventions: -Skilled knowledge of wound care [...] Adverse event? No Billing: Noncontact Ultrasound Mist (97043): no charge (bundled) Selective Sharp Debridement <20cm (58859): 1 unit Nonselective debridement (26138): no charge (bundled) Multi-Layer Venous Wound Compression System (33199): 1 unit (untimed) Session Start Time : 1441 Session Stop Time : 1545 Total Time: 64 minutes Amanda Soto PT documented in this encounterMercy Health [facility]field Hospital08-13-2024 History of Present illness Narrative* Liseth Alanis, PT - 04/16/2024 11:01 AM EDT Program_ID:[id number] Access Code: [email or web address] URL: [email or web address] Date: 04-16-2024 Prepared By: Liseth Alanis Program [...] correct R list 4x10 4: *Access Code: [email or web address] URL: [email or web address] Date: 04/16/2024 Prepared by: Liseth Silva Exercises [...] and function . Patient education as noted. [facility] Management: 1: discussed at length how a [...] 1110 Liseth Alanis PT documented in this encounterMercy Health [facility]field Hospital08-13-2024 NoteHNO ID: [id number] Author: LISETH ALANIS PT Service: ? Author [...] correct R list 4x10 4: *Access Code: [email or web address] URL: [email or web address] Date: 04/16/2024 Prepared by: Liseth Alanis Exercises [...] and function . Patient education as noted. [facility]: 1: discussed at length how a [...] Session Stop Time : 1110 Liseth Alanis, [facility]08-07-2024 History of Present illness Narrative* Amanda Soto, PT - 04/10/2024 12:58 PM EDT Episode Visit Count: 6 Medicare visits current year: 6 Therapist That Will Accept/Oversee The Plan Of Care: Liseth Alanis Start of Care Date: 01/24/24 Onset Date: 01/23/21 Plan of Care Certification Date: 03/13/24 Next Certification Due Date: 05/08/24 Patient Identified by Name and Date of : Yes [facility] PHYSICAL THERAPY WOUND [...] associated orders. TREATMENT: Conservative Sharp Debridement <20cm (08882): 3 mm curette used to selectively remove [...] prn -<20cm2 nonviable tissue removed Nonselective Debridement (89393): The dressing was removed. The RIGHT LE [...] Compression Therapy (Multilayer Venous Wound Compression System) (83785): Skilled interventions: -Skilled knowledge of wound care [...] Adverse event? No Billing: Noncontact Ultrasound Mist (64394): no charge Selective Sharp Debridement <20cm (40415): 1 unit Nonselective debridement (61414): no charge Multi-Layer Venous Wound Compression System (97936): 1 unit (untimed) Session Start Time : 1149 Session Stop Time : 1253 Total Time: 64 minutes Amanda Soto PT documented in this encounterMercy Health [facility]08-01-2024 History of Present illness Narrative* Amanda Soto PT - 04/04/2024 3:30 PM EDT Episode Visit Count: 5 Medicare visits current year: 5 Therapist That Will Accept/Oversee The Plan Of Care: Liseth Alanis Start of Care Date: 01/24/24 Onset Date: 01/23/21 Plan of Care Certification Date: 03/13/24 Next Certification Due Date: 05/08/24 Patient Identified by Name and Date of : Yes [facility] PHYSICAL THERAPY WOUND [...] associated orders. TREATMENT: Conservative Sharp Debridement <20cm (58542): 3 mm curette used to selectively remove [...] prn -<20cm2 nonviable tissue removed Nonselective Debridement (01196): The dressing was removed. The RIGHT LE [...] Compression Therapy (Multilayer Venous Wound Compression System) (45343): Skilled interventions: -Skilled knowledge of wound care [...] Adverse event? No Billing: Noncontact Ultrasound Mist (71365): no charge Selective Sharp Debridement <20cm (31499): 1 unit Nonselective debridement (65506): no charge Multi-Layer Venous Wound Compression System (85893): 1 unit (untimed) Session Start Time : 1435 Session Stop Time : 1530 Total Time: 55 minutes Amanda Soto PT documented in this encounterMercy Health [facility]field Hospital07-30-2024 NoteHNO ID: [id number] Author: MARISELA MCCARTY MD Service: ? Author Type: Physician Type: Progress Notes Filed: 04/02/2024 16:29 Note Text: Orthopaedic Office Note: April 02, 2024 4:24 PM Mary Alice Ga 73 year old History: Mary Alice is here for evaluation of her left hip. She has a known history of substantial lumbar scoliosis, likely degenerative She had a femoral neck fracture 3 years ago in [place] and was treated with a uncemented hemiarthroplasty [...] which included preparing to see the patient, [id number] patient care, completing clinical documentation, obtaining and/or reviewing separately obtained history, performing a medically appropriate examination, counseling and educating the patient/family/caregiver, ordering medications, tests, or procedures, communicating with other HCPs (not separately reported), independently interpreting results (not separately reported), communicating results to the patient/family/caregiver, and care coordination (not separately reported). Marisela Mccarty MD [facility] Surgery[facility]07-[facility] History of Present illness Narrative* Marisela Mccarty MD - 04/02/2024 1:49 PM EDT Orthopaedic Office Note: April 02, 2024 4:24 PM Mary Alice Ga 73 year old History: Mary Alice is here for evaluation of her left hip. She has a known history of substantial lumbar scoliosis, likely degenerative She had a femoral neck fracture 3 years ago in [place] and was treated with a uncemented hemiarthroplasty [...] which included preparing to see the patient, [id number] patient care, completing clinical documentation, obtaining and/or reviewing separately obtained history, performing a medically appropriate examination, counseling and educating the patient/family/caregiver, ordering medications, tests, or procedures, communicating withother HCPs (not separately reported), independently interpreting results (not separately reported),communicating results to the patient/family/caregiver, and care coordination (not separately reported). Marisela Mccarty MD Orthopaedic Surgery documented in this encounterMercy Health [facility]field Hospital07-30-2024 History of Present illness Narrative* Chandrika [...] PATIENT PRESENTS WITH AN IMPLANTABLE OR ATTACHED BATT PACKER: No RADIOLOGY DEPARTMENT: General X-ray: Exam(s) Completed: Pelvis X-Ray: Pelvis with Hip Left and Wt. Bearing PERIPHERAL IV DATA: Not applicable SIGNED BY: Juhi Valles April 02, 2024 1:02 PM documented in this encounterMercy Health Fairfield Hospital07-29-2024 NoteHNO ID: [id number] Author: LISETH ALANIS PT Service: ? Author [...] 1615 Session Stop Time : 165 Liseth Alanis, [facility]07-29-2024 History of Present illness Narrative* Liseth [...] 1615 Session Stop Time : 1656 Liseth Alanis PT documented in this encounterMercy Health [facility] Hospital07-23-2024 History of Present illness Narrative* Amanda [...] by Name and Date of : Yes [facility] PHYSICAL THERAPY WOUND [...] pain: not met Patient voices understanding of nursing home edema management via compression garments, leg elevation,and [...] To Pain Intervention: burning/stinging more laterally. Sore/tender 3-4/10 PROMIS Scales 02/13/2024 02/28/2024 03/13/2024 Higher is [...] back issues) TREATMENT: Conservative Sharp Debridement <20cm (55657): 3 mm curette used to selectively remove [...] prn -<20cm2 nonviable tissue removed Nonselective Debridement (72357): The compression dressing was removed. RIGHT LE [...] Compression Therapy (Multilayer Venous Wound Compression System) (48252): Skilled interventions: -Skilled knowledge of wound care [...] Adverse event? No Billing: Noncontact Ultrasound Mist (37973): no charge Selective Sharp Debridement <20cm (32043): 1 unit Nonselective debridement (37677): no charge Multi-Layer Venous Wound Compression System (17679): 1 unit (untimed) Session Start Time : 1433 Session Stop Time : 1540 Total Time: 67 minutes Amanda Soto PT documented in this encounterMercy Health [facility]field Hospital07-23-2024 History of Present illness Narrative* Liseth Alanis, PT - 03/26/2024 11:46 AM EDT Program_ID:[id number] Access Code: [email or web address] URL: [email or web address] Date: 03-26-2024 Prepared By: Liseth Alanis Program [...] and function . Patient education as noted. [facility] Management: 1: discussed that reduce back symptoms [...] 1155 Liseth Alanis PT documented in this encounterMercy Health [facility]field Hospital07-23-2024 NoteHNO ID: [id number] Author: LISETH ALANIS PT Service: ? Author [...] and function . Patient education as noted. [facility] Management: 1: discussed that reduce back symptoms [...] Session Stop Time : 1155 Liseth Alanis, [facility]07-17-2024 History of Present illness Narrative* Liseth [...] 1240 Liseth Alanis PT documented in this encounterMercy Health Fairfield Hospital07-17-2024 NoteHNO ID: [id number] Author: LISETH ALANIS PT Service: ? Author [...] Session Stop Time : 1240 Liseth Alanis, [facility]07-16-2024 History of Present illness Narrative* Amanda Soto, PT - 03/19/2024 9:59 AM EDT Episode Visit Count: 3 Medicare visits current year: 3 WOUND Therapist That Will Accept/Oversee The Plan Of Care: Liseth Alanis Start of Care Date: 01/24/24 Onset Date: 01/23/21 Plan of Care Certification Date: 03/13/24 Next Certification Due Date: 05/08/24 Patient Identified by Name and Date of : Yes [facility] PHYSICAL THERAPY WOUND [...] associated orders. TREATMENT: Conservative Sharp Debridement <20cm (92613): 3 mm curette used to selectively remove [...] prn -<20cm2 nonviable tissue removed Nonselective Debridement (19753): The compression dressing was removed. RIGHT LE [...] Compression Therapy (Multilayer Venous Wound Compression System) (12787): Skilled interventions: -Skilled knowledge of wound care [...] Adverse event? No Billing: Noncontact Ultrasound Mist (53728): no charge Selective Sharp Debridement <20cm (61189): 1 unit Nonselective debridement (65292): no charge Multi-Layer Venous Wound Compression System (16976): 1 unit (untimed) Session Start Time : 837 Session Stop Time : 940 Total Time: 63 minutes Amanda Soto PT documented in this encounterMercy Health [facility]field Hospital07-10-2024 NoteHNO ID: [id number] Author: LISETH ALANIS PT Service: ? Author [...] to reflect decreased fall risk. -- PROGRESSING Jessamine in home exercise program including cardiovascular exercise. [...] Patient to be seen for Gait Training (59502), Self-halfway management (79983), Therapeutic activities (34981), Manual therapy (16285), Neuromuscular re-education (31716), Therapeutic exercise (00853) PLAN FOR NEXT VISIT: work on step [...] last visit. She is seeing PT in [place] for her wounds. She is having the [...] Patient education as noted. (more content not included)...[facility]07-10-2024 History of Present illness Narrative* Liseth Alanis, PT - 03/13/2024 12:49 PM EDT Images [...] to reflect decreased fall risk. -- PROGRESSING Jessamine in home exercise program including cardiovascular exercise. [...] Patient to be seen for Gait Training (95530), Self-halfway management (78821), Therapeutic activities (64790), Manual therapy (06901), Neuromuscular re- education (67393), Therapeutic exercise (39199) PLAN FOR NEXT VISIT: work on step [...] last visit. She is seeing PT in [facility]. She is having the most difficulty [...] Gait belt utilized during session for safety. [facility] Management: 1: strongly encouraged use of SC [...] 1325 Liseth Alanis PT documented in this encounterMercy Health [facility]07-09-2024 History of Present illness Narrative* Amanda [...] by Name and Date of : Yes [facility] PHYSICAL THERAPY WOUND [...] patient reports she feels a little throbbing, 12/12 OBJECTIVE: Patient presents for follow-up wound care [...] associated orders. TREATMENT: Conservative Sharp Debridement <20cm (12226): 3 mm curette used to selectively remove [...] prn -<20cm2 nonviable tissue removed Nonselective Debridement (13557): home dressings removed. RIGHT LE cleansed with [...] Compression Therapy (Multilayer Venous Wound Compression System) (38290): Skilled interventions: -Skilled knowledge of wound care [...] Adverse event? No Billing: Noncontact Ultrasound Mist (42181): no charge Selective Sharp Debridement <20cm (54640): 1 unit Nonselective debridement (06203): no charge Multi-Layer Venous Wound Compression System (74230): 1 unit (untimed) Session Start Time : 1153 Session Stop Time : 1255 Total Time: 62 minutes Amanda Soto PT documented in this encounterMercy Health [facility]06-27-2024 History of Present illness Narrative* Amanda [...] by Name and Date of : Yes [facility] PHYSICAL THERAPY WOUND [...] drainage Eliminate pain Patient voices understanding of nursing home edema management via compression garments, leg elevation,and exercise. Planned Interventions, Frequency, and Duration: Current Frequency: 1x/week (WOUND CARE) Duration: (6 months: WOUND CARE) Total Number of Visits Planned: 24 (WOUND CARE) Planned Treatment Interventions: Self-halfway management (89232), Patient/Family/Caregiver Education, Wound Selective debridement <20cm, Selective [...] Limits Prior Wound Care: Other: See Comment ([place] [facility], Dermatology center for a Mohs procedureof the upper lower leg and lower leg wounds. Ablation in [facility] [place] [facility]. Dr Yin in [place].) Patient Goals: get the wounds to close [...] w x 0.1 100% yellow slough Wound 02/29/241599 Venous Ulcer Calf Distal;Right;Lateral (Active) Assessments 02/29/2024 [...] Education TREATMENT: Evaluation Conservative Sharp Debridement <20cm (24077): 3 mm curette used to selectively remove [...] prn -<20cm2 nonviable tissue removed Nonselective Debridement (08750): RIGHT LE cleansed with warm soapy water [...] as patient has an appt tomorrow for Farrow wraps. Patient will be out of town [...] event? No Billing: Evaluation - Moderate Complexity (56022) Noncontact Ultrasound Mist (24928): no charge Selective Sharp Debridement <20cm (08855): 1 unit Nonselective debridement (47746): no charge Session Start Time : 1550 Session Stop Time : 1655 Total time: 65 minutes Amanda Soto PT documented in this encounterMercy Health [facility]06-25-2024 Instructions* Patient Instructions* Gt Yin DO - 02/27/2024 9:25 AM EDT Vasculera- food supplement; vein health Farrow Wrap or Circaid stocking Plan is get ultrasound of veins and follow up May benefit from referral to [place] [facility] Bootmaker- Amanda Soto documented in this encounterMercy Health [facility]field Hospital06-25-2024 NoteHNO ID: [id number] Author: GT YIN DO Service: ? Author Type: Physician Type: Progress Notes Filed: 03/26/2024 13:56 Note Text: [facility] [place] DEPARTMENT OF VASCULAR SURGERY OUTPATIENT VISIT DATE [...] past year. She has been treated at [place] [facility]. They recommend HBO to help with healing. She has history of AGSV EVLT and phlebectomy in 2014. She had reflux testing at [place] which demonstrated reflux and had ablation a few months ago and has had issue healing since the procedure. She wears compression stockings- knee high stockings. She currently has epifix in place with an compression dressing. 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 She stands for long periods of time during the day. 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 Has used compression pumps [...] motor skills. Vascular: Dorsal (more content not included)...[facility] 02-27-2024 History of Present illness Narrative* Gt Yin, DO - 02/27/2024 8:31 AM EDT Images from the original note were not included. [facility] [place] DEPARTMENT OF VASCULAR SURGERY OUTPATIENT VISIT DATE [...] past year. She has been treated at [place] wound [facility]. They recommend HBO to help with healing. She has history of AGSV EVLT and phlebectomy in 2014. She had reflux testing at [place] which demonstrated reflux and had ablation a few months ago and has had issue healing since the procedure. She wears compression stockings- knee high stockings. She currently has epifix in placewith an compression dressing. 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 She stands for long periods of timeduring the day. 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 Has used compression pumps [...] 2024 TIME: 8:31 AM documented in this encounterMercy Health [facility]06-18-2024 NoteHNO ID: [id number] Author: LISETH ALANIS, PT Service: ? Author [...] Gait belt utilized during session for safety. [facility]: 1: encouraged pt. to wear shoes [...] Session Stop Time : 1110 Liseth Alanis, [facility]06-18-2024 History of Present illness Narrative* Liseth Alanis, [...] Gait belt utilized during session for safety. [facility] Management: 1: encouraged pt. to wear shoes [...] 1110 Liseth Alanis PT [facility] History of Present illness Narrative* Liseth Alanis PT - 02/13/2024 11:06 AM EDT Program_ID:[id number] Access Code: [email or web address] URL: [email or web address] Date: 02-13-2024 Prepared By: Liseth Alanis Program [...] - 2 sets - 12 reps * CindyCarlosMichelle herreraica, PT - 02/13/2024 10:31 AM EDT Episode Visit Count: 4 Therapist That Will Accept/Oversee The Plan Of Care: Liseth Alnais Start of Care Date: 01/24/24 Onset Date: [...] hurdles x6 fwd stepping with SC and GMAT TUTOR 4x R lead, 4x L lead Skilled [...] 1108 Liseth Alanis PT documented in [facility]24 NoteHNO ID: [id number] Author: LISETH ALANIS PT Service: ? Author [...] hurdles x6 fwd stepping with SC and GMAT TUTOR 4x R lead, 4x L lead Skilled [...] Session Stop Time : 1108 Liseth Alanis, [facility]06-04-2024 History of Present illness Narrative* Liseth Alanis, PT - 02/06/2024 8:47 AM EDT Program_ID:[id number] Access Code: [email or web address] URL: [email or web address] Date: 02-06-2024 Prepared By: Liseth Alanis Program [...] 4 sets - 15 reps * Liseth Alanis PT - 02/06/2024 8:15 AM EDT Episode [...] seat 13 subjective collected 2: *Access Code: [email or web address] URL: [email or web address] Date: 02/06/2024 Prepared by: Liseth Silva Exercises [...] with an (*). Patient education as noted. [facility]: 1: discussed a heel lift could [...] 854 Liseth Alanis PT [facility] in [facility]-2024 NoteHNO ID: [id number] Author: LISETH ALANIS PT Service: ? Author [...] seat 13 subjective collected 2: *Access Code: [email or web address] URL: [email or web address] Date: 02/06/2024 Prepared by: Liseth Alanis Exercises [...] with an (*). Patient education as noted. [facility] Management: 1: discussed a heel lift could be helpful, but turnk and hip weakness cant contribute to leg length and trunk posture 2: advised shoes with a back on them Skilled Intervention: Skilled judgment in the selection of proper modification for activity of daily living/home management based on clinical presentation, deficits, and needs. Provided written instruct (more content not included)...[facility]05-28-[facility] History of Present illness Narrative* Liseth Alanis, PT - 01/30/2024 11:07 AM EDT Program_ID:[id number] Access Code: [email or web address] URL: [email or web address]://[email or web address] Date: 01-30-2024 Prepared By: Liseth Alanis Program Notes Exercises - Seated Lumbar Flexion Stretch - 2-3 x daily - 7 x weekly - 2-3 sets - 10 reps * Liseth Alanis PT - 01/30/2024 10:31 AM EDT Episode [...] Gait belt utilized during session for safety. [facility] Management: 1: discussed that PT may not [...] 1110 Liseth Alanis PT documented in [facility]-28-2024 NoteHNO ID: [id number] Author: LISETH ALANIS PT Service: ? Author [...] Gait belt utilized during session for safety. [facility] Management: 1: discussed that PT may not [...] Session Stop Time : 11[address] [facility]05-22-2024 NoteHNO ID: [id number] Author: LISETH ALANIS, PT Service: ? Author [...] more repetitions to reflect decreased fall risk. Jessamine in home exercise program including cardiovascular exercise. Complete 6 MWT x1545 ft or more with or without SC. Patient Goals: amb without an AD from handicap spot to front door without LOB Planned Interventions, Frequency, and Duration: Current Frequency: 1x/week Duration: 6 weeks Total Number of Visits Planned: 6 Planned Treatment Interventions: Self-halfway management (41744), Gait Training (62457), Therapeutic activities (99133), Manual therapy (43585), Neuromuscular re-education (58246), Therapeutic exercise (27479) PLAN FOR NEXT VISIT: 6 MWT Patient [...] Extension: Major limitation Mobil (more content not included)...[facility]05-22-2024 History of Present illness Narrative* Liseth [...] more repetitions to reflect decreased fall risk. Jessamine in home exercise program including cardiovascular exercise. Complete 6 MWT x1545 ft or more with or without SC. Patient Goals: amb without an AD from handicap spot to front door without LOB Planned Interventions, Frequency, and Duration: Current Frequency: 1x/week Duration: 6 weeks Total Number of Visits Planned: 6 Planned Treatment Interventions: Self-halfway management (60719), Gait Training (83725), Therapeutic activities (87334), Manual therapy (96720), Neuromuscular re-education (00728), Therapeutic exercise (80585) PLAN FOR NEXT VISIT: 6 MWT Patient [...] Demonstration TREATMENT: PT Treatment Interventions: Therapeutic Exercise, [facility] Evaluation [facility] Management: 1: discussed importance of continued use [...] 1625 Liseth Alanis PT documented in [facility]-27-[facility]24 Discharge summary Author Harrison Roper [facility] December 30, 2023 1:30pm Note Date/Time December 30, 2023 1:2 5pm [facility] Medical Records Department [address] [place] [address] Instructions for Home/Discharge Instructions 12/30/23 1025 MR#: [id number] Acct: [id number] Name: MARY ALICE GA Rep #:[id number] : 1950 73 From: Harrison Hughes PCP: [...] CC: Dr. Khanh Rodriguez MD ~ Signed [facility] Work Phone: 1(226) 812-988004-27-2024 Procedure [facility] 12-30-2023 [facility]04-26-2024 Progress note Author Johny Davila [facility] December 29, 2023 5:46pm Note Date/Time December 29, 2023 5:4 6pm [facility] Medical Records Department [address] [place] [address] Progress Note - GI 12/29/23 1743 MR#: [id number] Acct: [id number] Name: MARY ALICE GA Rep #:[id number] : 1950 73 From: Johny Davila DO PCP: Dr. Khanh Rodriguez MD Status:A DM IN Location: [place] [address] Subjective Subjective Patient underwent an EGD for [...] 89.6 H, Lymph % (Auto) 7.5 L, Teller % (Auto) 2.5, Eos % (Auto) 0.0, [...] Albumin 2.3 L, Globulin 3.3 Micro: Microbiology 04/24/24 09:39 Stool Stool Occult Blood (KENDRA) - [...] direct bilirubin. Charges/Coding Visit Charges Inpatient E&M: 55401 Subs Hosp L3 12/29/23 2999 <Electronically signed by Johny Davila DO> Cosigner Signature (if applicable): CC: ~ Signed [facility] Work Phone: 1(282) 857-996304-26-2024 Progress note Author Harrison Roper [facility] December 29, 2023 1:31pm Note Date/Time December 29, 2023 1:1 3pm [facility] Medical Records Department [facility] [place] [address] Progress Note - Hospitalist 12/29/23 1312 MR#: [id number] Acct: [id number] Name: MARY ALICE GA Rep #:[id number] : 1950 73 From: Harrison Hughes PCP: Dr. Khanh Rodriguez MD Status:A DM IN Location: [place] [address] Reason for Visit Reason for Visit: Diagnoses [...] 89.6 H, Lymph % (Auto) 7.5 L, Teller % (Auto) 2.5, Eos % (Auto) 0.0, [...] Hemodynamically blood pressure 127/64 heart rate 67. /: H&H 8.2/24.3%. IV iron infusion ordered Electrolyte [...] of breast cancer: Patient on anastrozole.Patient follows [facility]. On alendronate continued Living will/advanced directive/end of life care: Patient does not living will or advanced directive. Her is power of defense attorney for health. After discussion of benefits/risks procedures involved with full code, DNR CC arrest and DNR CC, the patient opted for full code. Patient does want artificial life support including intubation, tube feed, ventilator and/chest compression, central venous catheter, vasopressor and DC shock if needed Total time spent in gepg-ew-uqmc encounter in discussion of advanced directive 17 minutes. Clinical Impression(s) from Imaging Studies Abdomen/Pelvis CT 12/27/23 10:14 IMPRESSION: Findings suggestive of cirrhosis. Fatty infiltration of the liver. Small gallstones with mild thickening of the gallbladder wall. Small amount of ascites. Sigmoid diverticulosis. Small umbilical hernia containing fat. Charges/Coding Visit Charges Inpatient E&M: 11826 Subs Hosp L2 12/29/23 1331 <Electronically signed by Harrison Roper MD> Cosigner Signature (if applicable): CC: ~ Signed [facility] Work Phone: 1(942) 148-656404-25-2024 Progress note Author Harrison Roper [facility] December 28, 2023 3:51pm Note Date/Time December 28, 2023 8:1 9am [facility] Medical Records Department [address] [place] [address] Progress Note - Hospitalist 12/28/23 0814 MR#: [id number] Acct: [id number] Name: MARY ALICE GA Rep #:[id number] : 1950 73 From: Harrison Hughes PCP: Dr. Khanh Rodriguez MD Status:A DM IN Location: [place] [address] Reason for Visit Reason for Visit: Diagnoses [...] Sl. Cloudy, Urine pH 7.0, Ur Specific [place] 1.005, Urine Protein 15 H, Urine Glucose [...] (Auto) 73.0 H, Lymph % (Auto) 19.2, Teller % (Auto) 6.7, Eos % (Auto) 0.4, [...] % (Auto) 69.7, Lymph % (Auto) 22.8, Teller % (Auto) 5.3, Eos % (Auto) 1.5, Baso % (Auto) 0.5, Absolute Neuts (auto) 2.9, Absolute Lymphs (auto) 0.94, Nucleated RBC % 0, Differential CommentSCANNED, Diff Path Review January, Platelet Estimate MOD DEC, Polychromasia 1+,Anisocytosis 2+, Macrocytosis 2+, Ovalocytes RARE, [place] Bodies RARE, PT 16.9 H, INR 1.4, [...] of breast cancer: Patient on anastrozole.Patient follows [facility]. On alendronate continued Living will/advanced directive/end of life care: Patient does not living will or advanced directive. Her is power of defense attorney for health. After discussion of benefits/risks procedures involved with full code, DNR CC arrest and DNR CC, the patient opted for full code. Patient does want artificial life support including intubation, tube feed, ventilator and/chest compression, central venous catheter, vasopressor and DC shock if needed Total time spent in jbnj-tw-tiab encounter in discussion of advanced directive 17 [...] % (Auto) 69.7, Lymph % (Auto) 22.8, Teller % (Auto) 5.3, Eos % (Auto) 1.5, Baso % (Auto) 0.5, Absolute Neuts (auto) 2.9, Absolute Lymphs (auto) 0.94, Nucleated RBC % 0, Differential CommentSCANNED, Diff Path Review May foll, Platelet Estimate MOD DEC, Polychromasia 1+,Anisocytosis 2+, Macrocytosis 2+, Ovalocytes RARE, [place] Bodies RARE, PT 16.9 H, INR 1.4, [...] containing fat. Charges/Coding Visit Charges Inpatient E&M: 67969 Subs Hosp L2 12/28/23 1551 <Electronically signed by Harrison Roper MD> Cosigner Signature (if applicable): CC: ~ Signed [facility] Work Phone: 1(916) 661-972104-25-2024 Procedure [facility] 12-27-2023 Discharge summary Author Yair Lazcano [facility] December 27, 2023 3:34pm Note Date/Time December 27, 2023 9:1 5am [facility] Medical Records Department [address] [place] [address] Emergency Department Summary 12/27/23 MR#: [id number] Acct: [id number] Name: MARY ALICE GA Rep #:[id number] : 1950 73 From: Yair Luna PCP: Dr. Khanh Rodriguez MD Status:A DM IN Location: [place] [address] HPI History of Present Illness Chief Complaint: [...] states that on Monday she went to [employer] and picked up an eggroll chicken and [...] yellow. is currently in the hospital in [place] with a broken femur and is being transferred to a rehab facility today. She denies any abdominal pain but states that her abdomen is generally sore. Patient does takepantoprazole daily. Patient states that they typically will winter in [place] where she sees a differential repairer. She states that this is the first year they did not go back. [facility] Medical History Abnormal mammogram of [...] I doubt cholecystitis. I spoke with Dr. Dvaila fromgastroenterology. plan is admission to the hospital. [...] (Auto) 73.0 H Lymph % (Auto) 19.2 Teller % (Auto) 6.7 Eos % (Auto) 0.4 [...] Sl. Cloudy Urine pH 7.0 Ur Specific [place] 1.005 Urine Protein 15 H Urine Glucose [...] w/another healthcare provider: Hospitalist (Dr Roper) and C2 Tactical Analysis Technician (GI Dr Davila) Discharge Plan Dx/Rx/DC Orders Clinical Impression: Decompensated hepatic cirrhosis, Jaundice, Acute upper GI bleeding, Ascites, Thrombocytopenia Disposition Disposition: [facility] What to do if you have Problems For any increased pain, shortness of breath, bleeding, nausea or vomiting, chestpain, or any unexpected problems, contact your Primary Care Provider. Call [facility] ([phone]) or report to the closest Emergency Room. Call 911 if necessary. 12/27/23 1534 <Electronically signed by Yair Lazcano DO> Cosigner Signature (if applicable): CC: Dr. Khanh Rodriguez MD ~ Signed [facility] Work Phone: 1(242) 156-437504-24-2024 History and physical note Author Harrison Roper [facility] December 27, 2023 1:37pm Note Date/Time December 27, 2023 1:3 1pm [facility] Medical Records Department [address] [place] [address] H&P Exam - Hospitalist 12/27/23 1317 MR#: [id number] Acct: [id number] Name: MARY ALICE GA Rep #:[id number] : 1950 73 From: Harrison Hughes PCP: Dr. Khanh Rodriguez MD Status:A DM IN Location: [place] [address] HPI - General General Date of Admission: [...] or pattern drinking alcohol even on asking. [facility] Medical History Abnormal mammogram of left [...] Sl. Cloudy, Urine pH 7.0, Ur Specific [place] 1.005, Urine Protein 15 H, Urine Glucose [...] (Auto) 73.0 H, Lymph % (Auto) 19.2, Teller % (Auto) 6.7, Eos % (Auto) 0.4, [...] of breast cancer: Patient on anastrozole.Patient follows [facility]. On alendronate continued Living will/advanced directive/end of life care: Patient does not living will or advanced directive. Her is power of defense attorney for health. After discussion of benefits/risks procedures involved with full code, DNR CC arrest and DNR CC, the patient opted for full code. Patient does want artificial life support including intubation, tube feed, ventilator and/chest compression, central venous catheter, vasopressor and DC shock if needed Total time spent in excs-km-xqyg encounter in discussion of advanced directive 17 minutes. Microbiology Past 72 Hours 12/27/23 09:39 Stool Stool Occult Blood (KENDRA) - Final Occult Blood Positive Laboratory Results 12/27/23 09:25: Urine Color Yellow, Urine Clarity Sl. Cloudy, Urine pH 7.0, Ur Specific [place] 1.005, Urine Protein 15 H, Urine Glucose [...] (Auto) 73.0 H, Lymph % (Auto) 19.2, Teller % (Auto) 6.7, Eos % (Auto) 0.4, [...] containing fat. Charges/Coding Visit Charges Inpatient E&M: 99026 Init Hosp L3 Procedures Hospitalists Procedures: 28888 Advncd Care Plan 30 Min 12/27/23 1337 <Electronically signed by Harrison Roper MD> Cosigner Signature (if applicable): CC: Dr. Khanh Rodriguez MD; Dr. Harrison Roper MD~ Signed [facility] Work Phone: 1(510) 680-922903-27-2024 Progress note Author Mariela Martines [facility] November 29, 2023 11:27am Note Date/Time November 29, 2023 11: 15am [facility] [address] [place] [address] Progress Note - Wound Care 11/29/23 1111 MR#: [id number] Acct: [id number] Name: MARY ALICE GA Rep #:[id number] : 1950 73 From: Mariela Martines DECKHAND CLAM DREDGE DECKHAND CLAM DREDGE-C PCP: Dr. Khanh Rodriguez MD Status:R EG RCR Location: History of Present Illness Date of Service: 11/29/23 Chief Complaint: Follow-up on her right lower leg lateral area wound nonhealing since at least November. History of Wound: 72-year-old white female in [place] where she is living duringthe winter. She [...] and is being seen by oncology at [facility] for that. She has left total mastectomy [...] Type of service Follow-up Visit Follow-up Visit (Physician/RN ER (Physician/RN ER ) ) Arrival Mode Ambulatory Ambulatory,Cane Ambulatory,Cane [...] Pain Free? No Yes Yes 11/29/23 09:41 WC - Today's Visit Information Type of service Follow-up Visit (Physician/RN ER ) Arrival Mode Ambulatory Transfer Assistance None [...] (1-33%) Small (1-33%) Medium (34-66%) -Granulation Quality [place] Red -Necrosis Amt Large (67-100%) Large (67-100%) [...] -Moisture (Elif-wound Skin Appearance) Weeping,Dry/ Scaly -Color (Leif-wound Skin Appearance) Hemosiderin Staining -Temperature (Elif-wound Skin [...] 10:06 Wound Center Nurse 2 #6 R [facility] LE -Time 10:07 -Correct Patient Yes -Correct [...] Epifix -Expiration Date 07/05/28 -Product Lot Number [id number] -Percent Used 100 -Lot number of Saline Used [id number] -Bleeding Controlled with Pressure Pressure Pressure -Other [...] Desktop 11/22/23 10:23 DL Document 11/29/23 10:11 [facility] Desktop 11/29/23 10:13 BMF 11/08/23 11/22/23 11/29/23 [...] 1127 <Electronically signed by Mariela Martines NP [employer] DREDGE-C> Cosigner Signature (if applicable): CC: ~ Signed [facility] Work Phone: 1(941) 990-548403-20-2024 Progress note Author Mariela Martines [facility] November 22, 2023 11:44am Note Date/Time November 22, 2023 11: 44am [facility] [address] [place] [address] Progress Note - Wound Care 11/22/23 1138 MR#: [id number] Acct: [id number] Name: MARY ALICE GA Rep #:[id number] : 1950 73 From: Mariela Martines NP [employer]KHAND CL[employer] DREDGE-C PCP: Dr. Khanh Rodriguez MD Status:R EG RCR Location: History of Present Illness Date of Service: 11/22/23 Chief Complaint: Follow-up on her right lower leg lateral area wound nonhealing since at least November. History of Wound: 72-year-old white female in [place] where she is living duringthe winter. She [...] and is being seen by oncology at [facility] for that. She has left total mastectomy [...] has made arrangements to move back to [place] for a couple of months and will [...] Type of service Follow-up Visit Follow-up Visit (Physician/RN ER (Physician/RN ER ) ) Arrival Mode Ambulatory Ambulatory,Cane Ambulatory,Cane [...] (1-33%) Small (1-33%) Medium (34-66%) -Granulation Quality [place] Red -Necrosis Amt Large (67-100%) Large (67-100%) [...] Epifix -Expiration Date 07/05/28 -Product Lot Number [id number] -Percent Used 100 -Lot number of Saline Used [id number] -Bleeding Controlled with Pressure Pressure Pressure -Other [...] 1144 <Electronically signed by Mariela Martines NP [employer] DREDGE-C> Cosigner Signature (if applicable): CC: ~ Signed [facility] Work Phone: 1(559) 182-620503-13-2024 Progress note Author Mariela Martines [facility] November 15, 2023 12:35pm Note Date/Time November 15, 2023 12: 36pm [facility] [address] [place] [address] Progress Note - Wound Care 11/15/23 1229 MR#: [id number] Acct: [id number] Name: MARY ALICE GA Rep #:[id number] : 1950 73 From: Mariela Martines NP [employer]KHAND CL[employer] DREDGE-C PCP: Dr. Khanh Rodriguez MD Status:R EG RCR Location: History of Present Illness Date of Service: 11/15/23 Chief Complaint: Follow-up on her right lower leg lateral area wound nonhealing since at least November. History of Wound: 72-year-old white female in [place] where she is living duringthe winter. She [...] and is being seen by oncology at [facility] for that. She has left total mastectomy [...] Type of service Follow-up Visit Follow-up Visit (Physician/RN ER (Physician/RN ER ) ) Arrival Mode Ambulatory Ambulatory,Cane Transfer [...] Amt Small (1-33%) Small (1-33%) -Granulation Quality [place] -Necrosis Amt Large (67-100%) Large (67-100%) -Necrotic [...] Recorded Date Recorded By Document 11/08/23 10:23 Current [employer] 11/08/23 10:34 Document 11/15/23 10:04 MW Desktop 11/15/23 10:12 [...] Epifix -Expiration Date 07/05/28 -Product Lot Number [id number] -Percent Used 100 -Lot number of Saline Used [id number] -Bleeding Controlled with Pressure Pressure -Other Type [...] Recorded Date Recorded By Document 11/08/23 10:57 Current [employer] 11/08/23 10:58 11/08/23 10:57 Wound Care Center Nurse 3 [...] of unspecified body region, initial encounter 11/15/23 3565 <Electronically signed by Mariela Martines NP [employer]ED[employer]-C> Cosigner Signature (if applicable): CC: ~ Signed [facility] Work Phone: 1(324) 607-429203-06-2024 Progress note Author Hugo Johnson [facility] November 08, 2023 11:59am Note Date/Time November 08, 2023 11:2 6am [facility] [address] [place] [address] Progress Note - Wound Care 11/08/23 1121 MR#: [id number] Acct: [id number] Name: MARY ALICE GA Rep #:[id number] : 1950 73 From: Hugo Hughes PM PCP: Dr. Khanh Rodriguez MD Status:R EG RCR Location: History of Present Illness Date of Service: 11/08/23 Chief Complaint: Follow-up on her right lower leg lateral area wound nonhealing since at least November. History of Wound: 72-year-old white female in [place] where she is living duringthe winter. She [...] and is being seen by oncology at [facility] for that. She has left total mastectomy [...] Date Recorded By Document 11/08/23 09:52 DL Current [employer] 11/08/23 10:01 DL 11/08/23 09:52 WC - Today's Visit Information Type of service Follow-up Visit (Physician/RN ER ) Arrival Mode Ambulatory Transfer Assistance None [...] Date Recorded By Document 11/08/23 09:52 BRY Current [employer] 11/08/23 10:01 DL 11/08/23 09:52 Wound Center Nurse 1 #3 right lateral ankle -Current Size (cm) - Length 2.6 -Current Size (cm) - Width 2.8 -Current Size (cm) - Depth 0.2 -Total Square Cm 7.28 -Exudate Amt Medium -Exudate Type Serosanguineous -Wound Margin Distinct, Outline Attached -Granulation Amt Small (1-33%) -Granulation Quality [place] -Necrosis Amt Large (67-100%) -Necrotic Tissue Type [...] Epifix -Expiration Date 07/05/28 -Product Lot Number [id number] -Percent Used 100 -Lot number of Saline Used [id number] -Bleeding Controlled with Pressure -Other Type of [...] the GI specialist Dr. Davila here at [facility]. Patient was understanding and will be discussing this with her primary doctor. 11/08/23 1159 <Electronically signed by Hugo Johnson DPM> Cosigner Signature (if applicable): CC: ~ Signed [facility] Work Phone: 1(283) 528-379402-28-2024 Progress note Author Mariela Martines [facility] November 01, 2023 11:59am Note Date/Time November 01, 2023 11:59am [facility] [address] [place] [address] Progress Note - Wound Care 11/01/23 1153 MR#: [id number] Acct: [id number] Name: MARY ALICE GA Rep #:[id number] : 1950 73 From: Mariela Martines [employer]KHAND CLAM DREDGE DECKHAND CLAM DREDGE-C PCP: Dr. Khanh Rodriguez MD Status:R EG RCR Location: History of Present Illness Date of Service: 11/01/23 Chief Complaint: Follow-up on her right lower leg lateral area wound nonhealing since at least November. History of Wound: 72-year-old white female in [place] where she is living duringthe winter. She [...] and is being seen by oncology at [facility] for that. She has left total mastectomy [...] of service Follow-up Visit Follow-up Visit Nurse-only (Physician/RN ER (Physician/RN ER Visit ) ) Arrival Mode Ambulatory Ambulatory [...] Type of service Follow-up Visit Follow-up Visit (Physician/RN ER (Physician/RN ER ) ) Arrival Mode Ambulatory,Cane Ambulatory,Cane Transfer [...] MW Document 10/18/23 10:11 Laptop 10/18/23 10:18 JF Document 10/25/23 10:00 [...] Date 07/05/28 07/05/28 09/14/27 -Product Lot Number [id number] 004 012 -Percent Used 100 100 100 -Lot number of Saline Used [id number] -Bleeding Controlled with Pressure Pressure Pressure -Treatment [...] Epifix -Expiration Date 07/05/28 -Product Lot Number [id number] -Percent Used 100 -Lot number of Saline Used [id number] -Bleeding Controlled with Pressure -Treatment Response Procedure [...] 11/01/23 1159 <Electronically signed by Mariela Martines NP [employer]-C> Cosigner Signature (if applicable): CC: ~ Signed [facility] Work Phone: 1(973) 842-565002-22-2024 Procedure [facility] 10-26-2023 History and physical note Author Shabbir Galaviz [facility] October 26, 2023 1:23pm Note Date/Time October 26, 2023 1:23pm [facility] Medical Records Department [address] [facility] [place] [address] History & Physical Exam 10/26/23 1321 MR#: [id number] Acct: [id number] Name: MARY ALICE GA Rep #:[id number] : 1950 73 From: Shabbir Galaviz MD PCP: Dr. Khanh Rodriguez MD Status:R [facility] Location: [facility] HPI - General HPI Narrative MARY ALICE GA, is a 73 F who presents with recurrent right lower extremity venous wounds, prior treatment of above knee segments. She presents for ablationof below knee incompetent GSV. [facility] Medical History Abnormal mammogram of left [...] Rodriguez MD; Dr. Shabbir Galaviz MD~ Signed [facility] Work Phone: 1(541) 405-233802-21-2024 Progress note Author Mariela Martines [facility] October 25, 2023 11:44am Note Date/Time October 25, 2023 11:44am [facility] [address] [place] [address] Progress Note - Wound Care 10/25/23 1139 MR#: [id number] Acct: [id number] Name: MARY ALICE GA Rep #:[id number] : 1950 73 From: Mariela Martines NP [employer]-C PCP: Dr. Khanh Rodriguez MD Status:R EG RCR Location: History of Present Illness Date of Service: 10/25/23 Chief Complaint: Follow-up on her right lower leg lateral area wound nonhealing since at least November. History of Wound: 72-year-old white female in [place] where she is living duringthe winter. She [...] and is being seen by oncology at [facility] for that. She has left total mastectomy [...] Desktop 10/11/23 10:02 DL Document 10/18/23 09:49 [facility] Desktop 10/18/23 09:56 BMF Document 10/23/23 08:56 DL Desktop 10/23/23 09:08 DL Document 10/25/23 09:43 F Desktop 10/25/23 09:52 [facility] 10/11/23 10/18/23 10/23/23 09:55 09:49 08:56 - Today's Visit Information Type of service Follow-up Visit Follow-up Visit Nurse-only (Physician/RN ER (Physician/RN ER Visit ) ) Arrival Mode Ambulatory Ambulatory [...] Pain Free? Yes Yes Yes 10/25/23 09:43 WC - Today's Visit Information Type of service Follow-up Visit (Physician/RN ER ) Arrival Mode Ambulatory,Cane Transfer Assistance None [...] Date 07/05/28 07/05/28 09/14/27 -Product Lot Number [id number] 004 012 -Percent Used 100 100 100 -Lot number of Saline Used [id number] -Bleeding Controlled with Pressure Pressure Pressure -Treatment [...] encounter 10/25/23 1144 <Electronically signed by Mariela Martines NP [employer]-C> Cosigner Signature (if applicable): CC: ~ Signed [facility] Work Phone: 1(338) 911-107402-14-2024 Progress note Author Hugo Johnson [facility] October 18, 2023 11:52am Note Date/Time October 18, 2023 11:48am [facility] [address] [place] [address] Progress Note - Wound Care 10/18/23 1147 MR#: [id number] Acct: [id number] Name: MARY ALICE GA Rep #:[id number] : 1950 73 From: Hugo Hughes PM PCP: Dr. Khanh Rodriguez MD Status:R EG RCR Location: History of Present Illness Date of Service: 10/18/23 Chief Complaint: Follow-up on her right lower leg lateral area wound nonhealing since at least November. History of Wound: 72-year-old white female in [place] where she is living duringthe winter. She [...] and is being seen by oncology at [facility] for that. She has left total mastectomy [...] Start: 10/11/23 09:55 Freq: Status: Active Protocol: WC.LOWEXT Activity Type Activity Date Activity User E-sign Co-sign Detail Recorded Client Recorded Date Recorded By Document 10/11/23 09:55 DL Desktop 10/11/23 10:02 DL Document 10/18/23 09:49 [facility] Desktop 10/18/23 09:56 BM 10/11/23 10/18/23 09:55 09:49 - Today's Visit Information Type of service Follow-up Visit Follow-up Visit (Physician/RN ER (Physician/RN ER ) ) Arrival Mode Ambulatory Ambulatory Transfer [...] Desktop 10/11/23 10:02 DL Document 10/18/23 09:49 BM Desktop 10/18/23 09:56 BMF 10/11/23 10/18/23 09:55 09:49 Wound Center Nurse [...] -Expiration Date 07/05/28 07/05/28 -Product Lot Number [id number] -Percent Used 100 100 -Lot number of Saline Used [id number] -Bleeding Controlled with Pressure Pressure -Treatment Response [...] 10/18/23 1152 <Electronically signed by Hugo Johnson DPRegina> Cosigner Signature (if applicable): CC: ~ Signed [facility] Work Phone: 1(972) 218-604702-07-2024 Progress note Author Mariela Martines [facility] October 11, 2023 10:43am Note Date/Time October 11, 2023 1 0:43am [facility] [address] [place] [address] Progress Note - Wound Care 10/11/23 1040 MR#: [id number] Acct: [id number] Name: MARY ALICE GA Rep #:[id number] : 1950 73 From: Mariela Martines NP [employer]-C PCP: Dr. Khanh Rodriguez MD Status:R EG RCR Location: History of Present Illness Date of Service: 10/11/23 Chief Complaint: Follow-up on her right lower leg lateral area wound nonhealing since at least November. History of Wound: 72-year-old white female in [place] where she is living duringthe winter. She [...] and is being seen by oncology at [facility] for that. She has left total mastectomy [...] Visit Information Type of service Follow-up Visit (Physician/RN ER ) Arrival Mode Ambulatory Transfer Assistance None [...] Date Recorded By Document 10/11/23 09:55 DL [facility] 10/11/23 10:02 DL 10/11/23 09:55 Wound Center [...] Epifix -Expiration Date 07/05/28 -Product Lot Number [id number] -Percent Used 100 -Lot number of Saline Used [id number] -Bleeding Controlled with Pressure -Treatment Response Procedure [...] 10/11/23 1043 <Electronically signed by Mariela Martines NP, NP-C> Cosigner Signature (if applicable): CC: ~ Signed [facility] Work Phone: 1(631) 811-519201-31-2024 Progress note Author Mariela Martines [facility] October 04, 2023 12:13pm Note Date/Time October 04, 2023 1 2:13pm [facility] [address] [place] [address] Progress Note - Wound Care 10/04/23 1210 MR#: [id number] Acct: [id number] Name: MARY ALICE GA Rep #:[id number] : 1950 73 From: Mariela Martines NP [employer]-C PCP: Dr. Khanh Rodriguez MD Status:R EG RCR Location: History of Present Illness Date of Service: 10/04/23 Chief Complaint: Follow-up on her right lower leg lateral area wound nonhealing since at least November. History of Wound: 72-year-old white female in [place] where she is living duringthe winter. She [...] and is being seen by oncology at [facility] for that. She has left total mastectomy [...] February. Patient would like to leave for [place] in October Subjective Subjective Patient agrees with [...] service Follow-up Visit Follow-up Visit Follow-up Visit (Physician/RN ER (Physician/RN ER (Physician/RN ER ) ) ) Arrival Mode Ambulatory Ambulatory,Cane [...] Visit Information Type of service Follow-up Visit (Physician/RN ER ) Arrival Mode Ambulatory,Cane Transfer Assistance None [...] Desktop 09/13/23 09:58 DL Document 09/27/23 09:58 [facility] Desktop 09/27/23 10:01 BMF Document 10/04/23 09:58 [facility] Desktop 10/04/23 10:09 [facility] 09/06/23 09/13/23 09/27/23 09:49 09:49 09:58 Wound [...] Amt Large (67-100%) Large (67-100%) -Granulation Quality [place],Red [place] -Necrosis Amt None Present (0 Small (1-33%) [...] Wound Center Nurse 1 #1- R LAT GISELL (P/O BASAL CELL CA) -Combined with other [...] MW Edit Result 09/13/23 10:05 MW (1) [id number] 09/14/23 06:58 PL Document 09/27/23 10:12 MW [...] Date 05/05/28 05/05/28 05/05/28 -Product Lot Number [id number] 005 -Percent Used 100 100 100 -Lot number of Saline Used [id number] -Bleeding Controlled with Pressure Pressure Pressure -Treatment [...] Tissue -Expiration Date 06/04/28 -Product Lot Number [id number] -Percent Used 100 -Lot number of Saline Used [id number] -Bleeding Controlled with Pressure -Treatment Response Procedure [...] 1213 <Electronically signed by Mariela Martines NP [employer]-C> Cosigner Signature (if applicable): CC: ~ Signed [facility] Work Phone: 1(745) 233-661901-24-2024 Progress note Author Mariela Martines [facility] September 27, 2023 10:46am Note Date/Time September 27, 2023 1 0:39am [facility] [address] [place] [address] Progress Note - Wound Care 09/27/23 1037 MR#: [id number] Acct: [id number] Name: MARY ALICE GA Rep #:[id number] : 1950 73 From: Mariela Martines NP [employer]-C PCP: Dr. Khanh Rodriguez MD Status:R EG RCR Location: History of Present Illness Date of Service: 09/27/23 Chief Complaint: Follow-up on her right lower leg lateral area wound nonhealing since at least November. History of Wound: 72-year-old white female in [place] where she is living duringthe winter. She [...] and is being seen by oncology at [facility] for that. She has left total mastectomy [...] Desktop 09/13/23 09:58 DL Document 09/27/23 09:58 [facility] Desktop 09/27/23 10:01 BMF 09/06/23 09/13/23 09/27/23 09:49 09:49 09:58 - Today's Visit Information Type of service Follow-up Visit Follow-up Visit Follow-up Visit (Physician/RN ER (Physician/RN ER (Physician/RN ER ) ) ) Arrival Mode Ambulatory Ambulatory,Cane [...] Desktop 09/13/23 09:58 DL Document 09/27/23 09:58 [facility] Desktop 09/27/23 10:01 BMF 09/06/23 09/13/23 09/27/23 [...] Amt Large (67-100%) Large (67-100%) -Granulation Quality [place],Red [place] -Necrosis Amt None Present (0 Small (1-33%) [...] MW Edit Result 09/13/23 10:05 MW (1) [id number] 09/14/23 06:58 PL Document 09/27/23 10:12 MW [...] Date 05/05/28 05/05/28 05/05/28 -Product Lot Number [id number] 005 -Percent Used 100 100 100 -Lot number of Saline Used [id number] -Bleeding Controlled with Pressure Pressure Pressure -Treatment [...] 1046 <Electronically signed by Mariela Martines NP [employer]-C> Cosigner Signature (if applicable): CC: ~ Signed [facility] Work Phone: 1(685) 642-797701-10-2024 Progress note Author Mariela Martines [facility] September 13, 2023 12:26pm Note Date/Time September 13, 2023 1 2:09pm [facility] [address] [place] [address] Progress Note - Wound Care 09/13/23 1206 MR#: [id number] Acct: [id number] Name: MARY ALICE GA Rep #:[id number] : 1950 72 From: Mariela Martines NP [employer]-C PCP: Dr. Khanh Rodriguez MD Status:R EG RCR Location: History of Present Illness Date of Service: 09/13/23 Chief Complaint: Follow-up on her right lower leg lateral area wound nonhealing since at least November. History of Wound: 72-year-old white female in [place] where she is living duringthe winter. She [...] and is being seen by oncology at [facility] for that. She has left total mastectomy [...] Type of service Follow-up Visit Follow-up Visit (Physician/RN ER (Physician/RN ER ) ) Arrival Mode Ambulatory Ambulatory,Cane Transfer [...] Amt Large (67-100%) Large (67-100%) -Granulation Quality [place],Red [place] -Necrosis Amt None Present (0 Small (1-33%) [...] -Expiration Date 05/05/28 05/05/28 -Product Lot Number [id number] -Percent Used 100 100 -Lot number of Saline Used [id number] -Bleeding Controlled with Pressure Pressure -Treatment Response [...] 1226 <Electronically signed by Mariela Martines NP [employer]-C> Cosigner Signature (if applicable): CC: ~ Signed [facility] Work Phone: 1(256) 458-379801-03-2024 Progress note Author Hugo Johnson [facility] September 06, 2023 11:03am Note Date/Time September 06, 2023 11 :03am [facility] [address] [place] [address] Progress Note - Wound Care 09/06/23 1057 MR#: [id number] Acct: [id number] Name: MARY ALICE GA Rep #:[id number] : 1950 72 From: Hugo HANSON PCP: Dr. Khanh Rodriguez MD Status:R EG RCR Location: History of Present Illness Date of Service: 09/06/23 Chief Complaint: Follow-up on her right lower leg lateral area wound nonhealing since at least November. History of Wound: 72-year-old white female in [place] where she is living duringthe winter. She [...] and is being seen by oncology at [facility] for that. She has left total mastectomy [...] Visit Information Type of service Follow-up Visit (Physician/RN ER ) Arrival Mode Ambulatory Transfer Assistance None [...] Attached -Granulation Amt Large (67-100%) -Granulation Quality [place],Red -Necrosis Amt None Present (0 %) -Structure [...] By Document 09/06/23 10:04 Laptop 09/06/23 10:11 HUSAM 09/06/23 10:04 Wound Center Nurse 2 #3 [...] Epifix -Expiration Date 05/05/28 -Product Lot Number [id number] -Percent Used 100 -Lot number of Saline Used [id number] -Bleeding Controlled with Pressure -Treatment Response Procedure [...] Cosigner Signature (if applicable): CC: ~ Signed [facility] Work Phone: 1(564) 304-457310-26-2023 Progress note Author Thalia Barroso [facility] June 29, 2023 9:15am Note Date/Time June 28, 2023 1 :04pm [facility] [address] [place] [address] Progress Note - Wound Care 06/28/23 1304 MR#: [id number] Acct: [id number] Name: MARY ALICE GA Rep #:[id number] : 1950 72 From: Thalia mark [employer] DREDGE [employer]KHAND CL[employer] DREDGE-C PCP: Dr. Khanh Rodriguez MD Status:R EG RCR Location: History of Present Illness Date of Service: 06/28/23 Chief Complaint: Follow-up on her right lower leg lateral area wound nonhealing since at least November. History of Wound: 72-year-old white female in [place] where she is living duringthe winter. She [...] and is being seen by oncology at [facility] for that. She has left total mastectomy [...] Method Room Air Charges/Coding Procedures Integumentary 150xxx-152xx: 46182 Skin sub graft trnk/arm/leg (Right lateral leg ulcer) Multi Select Codes Integumentary Integumentary CPT Codes: 47975 Nina subq tissue 20 sq cm/< (right [...] Recorded Date Recorded By Document 06/14/23 10:08 BMF Desktop 06/14/23 10:16 BMF Document 06/21/23 10:48 BMF Desktop 06/21/23 11:05 BMF Document 06/28/23 09:53 DL Desktop 06/28/23 10:02 DL 06/14/23 06/21/23 06/28/23 10:08 10:48 09:53 WC - Today's Visit Information Type of service Follow-up Visit Nurse-only Follow-up Visit (Physician/RN ER Visit (Physician/RN ER ) ) Arrival Mode Ambulatory Ambulatory Ambulatory [...] Recorded Date Recorded By Document 06/14/23 10:08 BMF Desktop 06/14/23 10:16 BMF Document 06/21/23 10:48 BMF Desktop 06/21/23 11:05 BMF Document 06/28/23 09:53 DL Desktop 06/28/23 10:02 [...] MW Edit Result 06/14/23 10:26 MW (1) [id number] 06/16/23 15:15 PL Document 06/21/23 11:18 MW [...] Date 03/04/28 03/04/28 03/04/28 -Product Lot Number [id number] 025 027 -Percent Used 100 100 100 -Lot number of Saline Used [id number] -Bleeding Controlled with Pressure Pressure Pressure -Treatment [...] 0915 <Electronically signed by Thalia Barroso NP [employer]-C> Cosigner Signature (if applicable): CC: ~ Signed [facility] Work Phone: 1(449) 951-490110-18-2023 Progress note Author Mariela Martines [facility] June 21, 2023 11:48am Note Date/Time June 21, 2023 1 1:42am [facility] [address] [place] [address] Progress Note - Wound Care 06/21/23 1138 MR#: [id number] Acct: [id number] Name: MARY ALICE GA Rep #:[id number] : 1950 72 From: Mariela Martines NP [employer]-C PCP: Dr. Khanh Rodriguez MD Status:R EG RCR Location: History of Present Illness Date of Service: 06/21/23 Chief Complaint: Follow-up on her right lower leg lateral area wound nonhealing since at least November. History of Wound: 72-year-old white female in [place] where she is living duringthe winter. She [...] and is being seen by oncology at [facility] for that also. Progress of Wound: So [...] Recorded Date Recorded By Document 06/14/23 10:08 BMF Desktop 06/14/23 10:16 BMF Document 06/21/23 10:48 [facility] Desktop 06/21/23 11:05 BMF 06/14/23 06/21/23 10:08 10:48 WC - Today's Visit Information Type of service Follow-up Visit Nurse-only (Physician/RN ER Visit ) Arrival Mode Ambulatory Ambulatory Transfer [...] Recorded Date Recorded By Document 06/14/23 10:08 [facility] Desktop 06/14/23 10:16 BMF Document 06/21/23 10:48 [facility] Desktop 06/21/23 11:05 BMF 06/14/23 06/21/23 10:08 [...] Abnormality Appearance) (Pt Warm) -Tenderness on Palpation (Eilf-wound No Skin Appearance) -Ulcer Cleansing Rinsed/ Irrigated [...] MW Edit Result 06/14/23 10:26 MW (1) [id number] 06/16/23 15:15 PL Document 06/21/23 11:18 MW [...] -Expiration Date 03/04/28 03/04/28 -Product Lot Number [id number] 025 -Percent Used 100 100 -Lot number of Saline Used [id number] -Bleeding Controlled with Pressure Pressure -Treatment Response [...] 1148 <Electronically signed by Mariela Martines NP [employer]-C> Cosigner Signature (if applicable): CC: ~ Signed [facility] Work Phone: 1(732) 801-772410-11-2023 Progress note Author Mariela Martines [facility] June 14, 2023 11:10am Note Date/Time June 14, 2023 1 0:44am [facility] [address] [place] [address] Progress Note - Wound Care 06/14/23 1042 MR#: [id number] Acct: [id number] Name: MARY ALICE GA Rep #:[id number] : 1950 72 From: Mariela Martines NP [employer]-C PCP: Dr. Khanh Rodriguez MD Status:R EG RCR Location: History of Present Illness Date of Service: 06/14/23 Chief Complaint: Follow-up on her right lower leg lateral area wound nonhealing since at least November. History of Wound: 72-year-old white female in [place] where she is living duringthe winter. She [...] and is being seen by oncology at [facility] for that also. Progress of Wound: So [...] Recorded Date Recorded By Document 06/14/23 10:08 [facility] Desktop 06/14/23 10:16 [facility] 06/14/23 10:08 HERMILA - Today's Visit Information Type of service Follow-up Visit (Physician/RN ER ) Arrival Mode Ambulatory Transfer Assistance None [...] Numeric Is Patient Pain Free? Yes HERMILA Trinidad Nurse 1 - General Ulcer Measurement Start: 06/14/23 10:07 Freq: Status: Active Protocol: Activity Type Activity Date Activity User E-sign Co-sign Detail Recorded Client Recorded Date Recorded By Document 06/14/23 10:08 [facility] Desktop 06/14/23 10:16 [facility] 06/14/23 10:08 Wound Center Nurse 1 #4 [...] Mesh -Expiration Date 03/04/28 -Product Lot Number [id number] -Percent Used 100 -Lot number of Saline Used [id number] -Bleeding Controlled with Pressure -Treatment Response Procedure [...] 1110 <Electronically signed by Mariela Martines NP [employer]-C> Cosigner Signature (if applicable): CC: ~ Signed [facility] Work Phone: 1(630) 874-643608-16-2023 Progress note Author Mariela Martines [facility] April 19, 2023 12:33pm Note Date/Time April 19, 2023 12 :33pm [facility] [address] [place] [address] Progress Note - Wound Care 04/19/23 1224 MR#: [id number] Acct: [id number] Name: MARY ALICE GA Rep #:[id number] : 1950 72 From: Mariela Martines NP [employer]-C PCP: Dr. Khanh Rodriguez MD [facility] Location: History of Present Illness Date of Service: 04/19/23 Chief Complaint: Follow-up on her right lower leg lateral area wound nonhealing since at least November. History of Wound: 72-year-old white female in [place] where she is living duringthe winter. She [...] Recorded Date Recorded By Document 04/19/23 10:55 [facility] [id number] 04/19/23 11:03 [facility] 04/19/23 10:55 - Today's Visit Information Type of service Follow-up Visit (Physician/RN ER ) Arrival Mode Ambulatory,Cane Transfer Assistance None [...] Recorded Date Recorded By Document 04/19/23 10:55 [facility] [id number] 04/19/23 11:03 [facility] 04/19/23 10:55 Wound Center Nurse 1 #1- [...] Calf (cm) 37.2 Right Ankle (cm) 23.6 - Nurse 2 - General Ulcer CM Notes Start: 04/19/23 10:55 Freq: Status: Active Protocol: Activity Type Activity Date Activity User E-sign Co-sign Detail Recorded Client Recorded Date Recorded By Document 04/19/23 11:14 MW [id number] 04/19/23 11:29 MW 04/19/23 11:14 Wound Center [...] Disc -Expiration Date 01/03/28 -Product Lot Number [id number] -Percent Used 100 -Lot number of Saline Used [id number] -Bleeding Controlled with NA,Pressure -Treatment Response Procedure [...] Recorded Date Recorded By Document 04/19/23 11:45 [facility] [id number] 04/19/23 11:46 [facility] 04/19/23 11:45 Wound Care Center Nurse 3 #1- R LAT GISELL (P/O BASAL CELL CA) -Primary Dressing Applied [...] 1233 <Electronically signed by Mariela Martines NP [employer]-C> Cosigner Signature (if applicable): CC: ~ Signed [facility] Work Phone: 1(114) 994-952207-26-2023 Progress note Author Mariela Martines [facility] March 29, 2023 12:10pm Note Date/Time March 29, 2023 12:1 0pm [facility] [address] [place] [address] Progress Note - Wound Care 03/29/23 1209 MR#: [id number] Acct: [id number] Name: MARY ALICE GA Rep #:[id number] : 1950 72 From: Mariela Martines NP [employer]ED[employer]-C PCP: Dr. Khanh Rodriguez MD Status:R EG RCR Location: History of Present Illness Date of Service: 03/29/23 Chief Complaint: Follow-up on her right lower leg lateral area wound nonhealing since at least November. History of Wound: 72-year-old white female in [place] where she is living duringthe winter. She [...] Start: 03/15/23 09:23 Freq: Status: Active Protocol: .LOWEXT Activity Type Activity Date Activity User E-sign Co-sign Detail Recorded Client Recorded Date Recorded By Document 03/15/23 09:26 DL [id number] 03/15/23 09:37 DL Document 03/22/23 10:37 RB [id number] 03/22/23 10:38 RB Document 03/29/23 11:11 RB [id number] 03/29/23 11:15 RB 03/15/23 03/22/23 03/29/23 09:26 10:37 11:11 - Today's Visit Information Type of service Follow-up Visit Follow-up Visit Follow-up Visit (Physician/RN ER (Physician/RN ER (Physician/RN ER ) ) ) Arrival Mode Ambulatory,Cane Ambulatory [...] Date Recorded By Document 03/15/23 09:26 DL [id number] 03/15/23 09:37 DL Document 03/22/23 10:37 RB [id number] 03/22/23 10:38 RB Document 03/29/23 11:11 RB [id number] 03/29/23 11:15 RB 03/15/23 03/22/23 03/29/23 09:26 10:37 11:11 Wound Center Nurse 1 2. R forearm -Current Size (cm) - Length 0 -Current Size (cm) - Width 0 -Current Size (cm) - Depth 0 -Total Square Cm 0 -Photo Taken Yes -Exudate Amt None Present -Wound Margin Indistinct, Non -Visible -Granulation Amt Large (67-100%) -Granulation Quality [place] -Necrosis Amt None Present (0 %) -Structure [...] Medium (34-66%) Medium (34-66%) -Granulation Quality [place] -Slough/Fibrin Yes Yes -Necrosis Amt Medium (34-66%) [...] Date Recorded By Document 03/15/23 09:55 MW [id number] 03/15/23 10:02 MW Document 03/22/23 10:59 MW [id number] 03/22/23 11:04 MW Document 03/29/23 11:25 MW [id number] 03/29/23 11:27 MW 03/15/23 03/22/23 03/29/23 09:55 [...] -Expiration Date 12/04/27 11/03/27 -Product Lot Number [id number] -Percent Used 100 100 -Lot number of Saline Used [id number] -Bleeding Controlled with Pressure Pressure -Treatment Response [...] Date Recorded By Document 03/15/23 10:02 MW [id number] 03/15/23 10:02 MW Edit Result 03/15/23 10:02 MW (1) [id number] 03/15/23 10:03 MW Edit Result 03/15/23 10:02 MW (2) [id number] 03/15/23 10:04 MW Document 03/22/23 11:16 RB [id number] 03/22/23 11:17 RB Document 03/29/23 11:27 MW [id number] 03/29/23 11:28 MW (1) Right - Compression [...] 11:27 Wound Care Center Nurse 3 #1- R [...] 1210 <Electronically signed by Mariela Martines NP [employer]-C> Cosigner Signature (if applicable): CC: ~ Signed [facility] Work Phone: 1(187) 167-300607-19-2023 Progress note Author Mariela Martines [facility] March 22, 2023 11:56am Note Date/Time March 22, 2023 11:5 6am [facility] [address] [place] [address] Progress Note - Wound Care 03/22/23 1153 MR#: [id number] Acct: [id number] Name: MARY ALICE GA Rep #:[id number] : 1950 72 From: Mariela Martines [employer] DREDGE DECKHAND CLAM DREDGE-C PCP: Dr. Khanh Rodriguez MD Status:R EG RCR Location: History of Present Illness Date of Service: 03/22/23 Chief Complaint: Follow-up on her right lower leg lateral area wound nonhealing since at least November. History of Wound: 72-year-old white female in [place] where she is living duringthe winter. She [...] Date Recorded By Document 03/15/23 09:26 DL [id number] 03/15/23 09:37 DL Document 03/22/23 10:37 RB [id number] 03/22/23 10:38 RB 03/15/23 03/22/23 09:26 10:37 - Today's Visit Information Type of service Follow-up Visit Follow-up Visit (Physician/RN ER (Physician/RN ER ) ) Arrival Mode Ambulatory,Cane Ambulatory Transfer [...] Date Recorded By Document 03/15/23 09:26 DL [id number] 03/15/23 09:37 DL Document 03/22/23 10:37 RB [id number] 03/22/23 10:38 RB 03/15/23 03/22/23 09:26 10:37 Wound Center Nurse 1 2. R forearm -Current Size (cm) - Length 0 -Current Size (cm) - Width 0 -Current Size (cm) - Depth 0 -Total Square Cm 0 -Photo Taken Yes -Exudate Amt None Present -Wound Margin Indistinct, Non -Visible -Granulation Amt Large (67-100%) -Granulation Quality [place] -Necrosis Amt None Present (0 %) -Structure [...] Medium (34-66%) Medium (34-66%) -Granulation Quality Red [place] -Slough/Fibrin Yes -Necrosis Amt Medium (34-66%) Medium [...] Date Recorded By Document 03/15/23 09:55 MW [id number] 03/15/23 10:02 MW Document 03/22/23 10:59 MW [id number] 03/22/23 11:04 MW 03/15/23 03/22/23 09:55 10:59 [...] -Expiration Date 12/04/27 11/03/27 -Product Lot Number [id number] -Percent Used 100 100 -Lot number of Saline Used [id number] -Bleeding Controlled with Pressure Pressure -Treatment Response [...] Date Recorded By Document 03/15/23 10:02 MW [id number] 03/15/23 10:02 MW Edit Result 03/15/23 10:02 MW (1) [id number] 03/15/23 10:03 MW Edit Result 03/15/23 10:02 MW (2) [id number] 03/15/23 10:04 MW Document 03/22/23 11:16 RB [id number] 03/22/23 11:17 RB (1) Right - Compression [...] Wound Care Center Nurse 3 #1- R VICENTA JAMESON (P/O BASAL CELL CA) -Ulcer Cleansing [...] 1156 <Electronically signed by Mariela Martines NP [employer]C> Cosigner Signature (if applicable): CC: ~ Signed [facility] Work Phone: 1(140) 839-770907-12-2023 Progress note Author Mariela Martines [facility] March 15, 2023 12:30pm Note Date/Time March 15, 2023 12:3 0pm [facility] [address] [place] [address] Progress Note - Wound Care 03/15/23 1225 MR#: [id number] Acct: [id number] Name: MARY ALICE GA Rep #:[id number] : 1950 72 From: Mariela Martines NP [employer]-C PCP: Dr. Khanh Rodriguez MD Status:R EG RCR Location: History of Present Illness Date of Service: 03/15/23 Chief Complaint: Follow-up on her right lower leg lateral area wound nonhealing since at least November. History of Wound: 72-year-old white female in [place] where she is living duringthe winter. She [...] Start: 03/15/23 09:23 Freq: Status: Active Protocol: HERMILA.LOWLAURIET Activity Type Activity Date Activity User E-sign Co-sign Detail Recorded Client Recorded Date Recorded By Document 03/15/23 09:26 DL [id number] 03/15/23 09:37 DL 03/15/23 09:26 WC - Today's Visit Information Type of service Follow-up Visit (Physician/RN ER ) Arrival Mode Ambulatory,Cane Transfer Assistance None [...] Date Recorded By Document 03/15/23 09:26 DL [id number] 03/15/23 09:37 DL 03/15/23 09:26 Wound Center Nurse 1 2. R forearm -Current Size (cm) - Length 0 -Current Size (cm) - Width 0 -Current Size (cm) - Depth 0 -Total Square Cm 0 -Photo Taken Yes -Exudate Amt None Present -Wound Margin Indistinct, Non -Visible -Granulation Amt Large (67-100%) -Granulation Quality [place] -Necrosis Amt None Present (0 %) -Structure [...] Date Recorded By Document 03/15/23 09:55 MW [id number] 03/15/23 10:02 MW 03/15/23 09:55 Wound Center [...] Mesh -Expiration Date 12/04/27 -Product Lot Number [id number] -Percent Used 100 -Lot number of Saline Used [id number] -Bleeding Controlled with Pressure -Treatment Response Procedure [...] Date Recorded By Document 03/15/23 10:02 MW [id number] 03/15/23 10:02 MW Edit Result 03/15/23 10:02 MW (1) [id number] 03/15/23 10:03 MW Edit Result 03/15/23 10:02 MW (2) [id number] 03/15/23 10:04 MW (1) Right - Compression [...] Wound Care Center Nurse 3 #1- R VICENTA JAMESON (P/O BASAL CELL CA) -Ulcer Cleansing [...] 1230 <Electronically signed by Mariela Martines NP [employer]> Cosigner Signature (if applicable): CC: ~ Signed [facility] Work Phone: 1(413) 587-528906-28-2023 Progress note Author Mariela Martines [facility] March 01, 2023 11:32am Note Date/Time March 01, 2023 11:3 2am [facility] [address] [place] [address] Progress Note - Wound Care 03/01/23 1124 MR#: [id number] Acct: [id number] Name: MARY ALICE GA Rep #:[id number] : 1950 72 From: Mariela Martines NP [employer]C PCP: Dr. Khanh Rodriguez MD Status:R EG RCR Location: History of Present Illness Date of Service: 03/01/23 Chief Complaint: Follow-up on her right lower leg lateral area wound nonhealing since at least November. History of Wound: 72-year-old white female in [place] where she is living duringthe winter. She [...] because going down to her cabin in [facility] for 2 weeks. Objective Data [...] Start: 02/08/23 11:06 Freq: Status: Active Protocol: CLAU Activity Type Activity Date Activity User E-sign Co-sign Detail Recorded Client Recorded Date Recorded By Document 02/08/23 11:07 [facility] [id number] 02/08/23 11:13 [facility] Document 02/15/23 09:30 [id number] 02/15/23 09:34 Document 02/22/23 09:56 [id number] 02/22/23 09:59 Document 03/01/23 09:39 [facility] [id number] 03/01/23 09:52 [facility] 02/08/23 02/15/23 02/22/23 11:07 09:30 09:56 - Today's Visit Information Type of service Follow-up Visit Follow-up Visit Follow-up Visit (Physician/RN ER (Physician/RN ER (Physician/RN ER ) ) ) Arrival Mode Ambulatory Ambulatory [...] Visit Information Type of service Follow-up Visit (Physician/RN ER ) Arrival Mode Ambulatory,Cane Transfer Assistance None [...] Recorded Date Recorded By Document 02/08/23 11:07 [facility] [id number] 02/08/23 11:13 [facility] Document 02/15/23 09:30 RB [id number] 02/15/23 09:34 RB Document 02/22/23 09:56 RB [id number] 02/22/23 09:59 RB Document 03/01/23 09:39 BM[facility] [id number] 03/01/23 09:52 BMF 02/08/23 02/15/23 02/22/23 11:07 09:30 09:56 Wound [...] Attached -Granulation Amt Medium (34-66%) -Granulation Quality [place] -Slough/Fibrin Yes -Necrosis Amt Medium (34-66%) -Necrotic [...] Medium (34-66%) Medium (34-66%) -Granulation Quality [place] -Slough/Fibrin Yes Yes Yes -Necrosis Amt Large [...] 02/08/23 11:30 MW Document 02/15/23 09:37 MW [id number] 02/15/23 09:45 MW Document 02/22/23 10:12 MW [id number] 02/22/23 10:24 MW 02/08/23 02/15/2323 11:20 09:37 10:12 Wound Center Nurse 2 [...] Date 12/03/25 12/04/27 12/04/27 -Product Lot Number [id number] -Percent Used 100 100 100 -Lot number of Saline Used [id number] -Bleeding Controlled with Pressure Pressure Pressure -Treatment [...] 02/08/23 11:31 MW Document 02/15/23 09:52 RB [id number] 02/15/23 09:53 RB Document 02/22/23 10:39 MW [id number] 02/22/23 10:40 MW 02/08/23 02/15/23 02/22/23 11:30 [...] 1132 <Electronically signed by Mariela Martines NP [employer]-C> Cosigner Signature (if applicable): CC: ~ Signed [facility] Work Phone: 1(587) 121-246306-21-2023 Progress note Author Mariela Martines [facility] February 22, 2023 11:34am Note Date/Time February 22, 2023 11:3 4am [facility] [address] [place] [address] Progress Note - Wound Care 02/22/23 1125 MR#: [id number] Acct: [id number] Name: MARY ALICE GA Rep #:[id number] : 1950 72 From: Mariela Martines NP [employer]-C PCP: Dr. Khanh Rodriguez MD Status:R EG RCR Location: History of Present Illness Date of Service: 02/22/23 Chief Complaint: Follow-up on her right lower leg lateral area wound nonhealing since at least November. History of Wound: 72-year-old white female in [place] where she is living duringthe winter. She [...] burning arm pain and soreness been using laix-rkw-nylylyv antibiotic ointment on it and wrapping Objective [...] Recorded Date Recorded By Document 02/08/23 11:07 [facility] [id number] 02/08/23 11:13 BMF Document 02/15/23 09:30 RB [id number] 02/15/23 09:34 RB Document 02/22/23 09:56 RB [id number] 02/22/23 09:59 RB 02/08/23 02/15/23 02/22/23 11:07 09:30 09:56 - Today's Visit Information Type of service Follow-up Visit Follow-up Visit Follow-up Visit (Physician/RN ER (Physician/RN ER (Physician/RN ER ) ) ) Arrival Mode Ambulatory Ambulatory [...] Recorded Date Recorded By Document 02/08/23 11:07 [facility] [id number] 02/08/23 11:13 [facility] Document 02/15/23 09:30 RB [id number] 02/15/23 09:34 RB Document 02/22/23 09:56 RB [id number] 02/22/23 09:59 RB 02/08/23 02/15/23 02/22/23 11:07 [...] Attached -Granulation Amt Medium (34-66%) -Granulation Quality [place] -Slough/Fibrin Yes -Necrosis Amt Medium (34-66%) -Necrotic [...] Medium (34-66%) Medium (34-66%) -Granulation Quality [place] -Slough/Fibrin Yes Yes Yes -Necrosis Amt Large [...] 02/08/23 11:30 MW Document 02/15/23 09:37 MW [id number] 02/15/23 09:45 MW Document 02/22/23 10:12 MW [id number] 02/22/23 10:24 MW 02/08/23 02/15/23 02/22/23 11:20 [...] Epifix Mesh Epifix Mesh -Expiration Date 12/03/25 12/04/2728 -Product Lot Number [id number] -Percent Used 100 100 100 -Lot number of Saline Used [id number] -Bleeding Controlled with Pressure Pressure Pressure -Treatment [...] 02/08/23 11:31 MW Document 02/15/23 09:52 RB [id number] 02/15/23 09:53 RB Document 02/22/23 10:39 MW [id number] 02/22/23 10:40 MW 02/08/23 02/15/23 02/22/23 11:30 [...] 1134 <Electronically signed by Mariela Martines NP [employer]-C> Cosigner Signature (if applicable): CC: ~ Signed [facility] Work Phone: 1(574) 782-810806-14-2023 Progress note Author Mariela Martines [facility] February 15, 2023 9:59am Note Date/Time February 15, 2023 9:59 am [facility] [address] [place] [address] Progress Note - Wound Care 02/15/23 0956 MR#: [id number] Acct: [id number] Name: MARY ALICE GA Rep #:[id number] : 1950 72 From: Mariela Martines NP [employer]-C PCP: Dr. Khanh Rodriguez MD Status:R EG RCR Location: History of Present Illness Date of Service: 02/15/23 Chief Complaint: Follow-up on her right lower leg lateral area wound nonhealing since at least November. History of Wound: 72-year-old white female in [place] where she is living duringthe winter. She [...] Start: 02/08/23 11:06 Freq: Status: Active Protocol: HERMILA.RAFFI Activity Type Activity Date Activity User E-sign Co-sign Detail Recorded Client Recorded Date Recorded By Document 02/08/23 11:07 [facility] [id number] 02/08/23 11:13 [facility] Document 02/15/23 09:30 [id number] 02/15/23 09:34 RB 02/08/23 02/15/23 11:07 09:30 - Today's Visit Information Type of service Follow-up Visit Follow-up Visit (Physician/RN ER (Physician/RN ER ) ) Arrival Mode Ambulatory Ambulatory Transfer [...] Recorded Date Recorded By Document 02/08/23 11:07 [facility] [id number] 02/08/23 11:13 [facility] Document 02/15/23 09:30 [id number] 02/15/23 09:34 RB 02/08/23 02/15/23 11:07 09:30 [...] Small (1-33%) Medium (34-66%) -Granulation Quality [place] -Slough/Fibrin Yes Yes -Necrosis Amt Large (67-100%) [...] 02/08/23 11:30 MW Document 02/15/23 09:37 MW [id number] 02/15/23 09:45 MW 02/08/23 02/15/23 11:20 09:37 [...] -Expiration Date 12/03/25 12/04/27 -Product Lot Number [id number] -Percent Used 100 100 -Lot number of Saline Used [id number] -Bleeding Controlled with Pressure Pressure -Treatment Response [...] 02/08/23 11:31 MW Document 02/15/23 09:52 RB [id number] 02/15/23 09:53 RB 02/08/23 02/15/23 11:30 09:52 [...] 0959 <Electronically signed by Mariela Martines NP [employer]-C> Cosigner Signature (if applicable): CC: ~ Signed [facility] Work Phone: 1(160) [phone] Progress note Author Mariela Martines [facility] February 08, 2023 11:53am Note Date/Time February 08, 2023 11:53 am [facility] [address] [place] [address] Progress Note - Wound Care 02/08/23 1149 MR#: [id number] Acct: [id number] Name: MARY ALICE GA Rep #:[id number] : 1950 72 From: Mariela Martines NP [employer]-C PCP: Dr. Khanh Rodriguez MD Status:R EG RCR Location: History of Present Illness Date of Service: 02/08/23 Chief Complaint: Follow-up on her right lower leg lateral area wound nonhealing since at least November. History of Wound: 72-year-old white female in [place] where she is living duringthe winter. She [...] Recorded Date Recorded By Document 02/08/23 11:07 [facility] [id number] 02/08/23 11:13 [facility] 02/08/23 11:07 WC - Today's Visit Information Type of service Follow-up Visit (Physician/RN ER ) Arrival Mode Ambulatory Transfer Assistance None [...] Recorded Date Recorded By Document 02/08/23 11:07 [facility] [id number] 02/08/23 11:13 [facility] 02/08/23 11:07 Wound Center Nurse 1 #1- Marino JAMESON (P/O BASAL CELL CA) -Combined with other [...] 02/08/23 11:20 Wound Center Nurse 2 #1- Marino JAMESON (P/O BASAL CELL CA) -Time 11:20 [...] Mesh -Expiration Date 12/03/25 -Product Lot Number [id number] -Percent Used 100 -Lot number of Saline Used [id number] -Bleeding Controlled with Pressure -Treatment Response Procedure [...] 1153 <Electronically signed by Mariela Martines NP [employer]-C> Cosigner Signature (if applicable): CC: ~ Signed [facility] Work Phone: 1(721) 568-120005-31-2023 Progress note Author Mariela Martines [facility] February 01, 2023 12:26pm Note Date/Time February 01, 2023 12:26 pm [facility] [address] [place] [address] Progress Note - Wound Care 02/01/23 1222 MR#: [id number] Acct: [id number] Name: MARY ALICE GA Rep #:[id number] : 1950 72 From: Mariela Martines NP [employer]-C PCP: Dr. Khanh Rodriguez MD Status:R EG RCR Location: History of Present Illness Date of Service: 02/01/23 Chief Complaint: Follow-up on her right lower leg lateral area wound nonhealing since at least November. History of Wound: 72-year-old white female in [place] where she is living duringthe winter. She [...] Recorded Date Recorded By Document 01/25/23 09:15 [facility] [id number] 01/25/23 09:39 [facility] Document 02/01/23 11:13 [facility] [id number] 02/01/23 11:20 [facility] 01/25/23 02/01/23 09:15 11:13 - Today's Visit Information Type of service Initial Visit Follow-up Visit (Physician/RN ER ) Arrival Mode Ambulatory,Cane Ambulatory Transfer Assistance [...] Bottom <Entered> (a) Communication Assessment Preferred language Gambian Weblogic Administrator Required No Able to Read Yes Able [...] in Ability to Perform Denies Any Declines Culture/Yazidism/Enterprise Application Administrator Cultural/Yazidism Needs that may affect No Treatment Plan Teaching: Wound Center *Welcome to the Wound Center -Person Taught Patient -Teaching Method Discussion -Response to teaching Verbalize understanding Welcome to the Wound Care Center Burmese (a) 1 - + WC - Nurse 1 - General Ulcer Measurement Start: 01/25/23 09:11 Freq: Status: Active Protocol: Activity Type Activity Date Activity User E-sign Co-sign Detail Recorded Client Recorded Date Recorded By Document 01/25/23 09:15 [facility] [id number] 01/25/23 09:39 [facility] Document 02/01/23 11:13 [facility] [id number] 02/01/23 11:20 [facility] 01/25/23 02/01/23 09:15 11:13 Wound Center Nurse [...] (Elif-wound Skin Appearance) Assessed Assessed,Dry/ Scaly -Color (Eilf-wound Skin Appearance) Assessed, Assessed Erythema -Temperature (Elif-wound [...] Date Recorded By Document 01/25/23 09:55 MW [id number] 01/25/23 10:02 MW Document 02/01/23 11:28 MW [id number] 02/01/23 11:32 MW 01/25/23 02/01/23 09:55 11:28 [...] Date Recorded By Document 01/25/23 10:42 RB [id number] 01/25/23 10:43 RB Document 02/01/23 11:32 MW [id number] 02/01/23 11:38 MW 01/25/23 02/01/23 10:42 11:32 [...] 1226 <Electronically signed by Mariela Martines NP [employer]-C> Cosigner Signature (if applicable): CC: ~ Signed [facility] Work Phone: 1(709) 256-522405-24-2023 History and physical note Author Mariela Martines [facility] January 25, 2023 12:44pm Note Date/Time January 25, 2023 12:44 pm [facility] [address] [place] [address] H&P Exam - Wound Care 01/25/23 1234 MR#: [id number] Acct: [id number] Name: MARY ALICE GA Rep #:[id number] : 1950 72 From: Mariela Martines NP [employer]-C PCP: Dr. Khanh Rodriguez MD Status:R EG RCR Location: History of Present Illness Date of Service: 01/25/23 Chief Complaint: Follow-up on her right lower leg lateral area wound nonhealing since at least November. History of Wound: 72-year-old white female in [place] where she is living duringthe winter. She [...] Allergy Mild Other Ver[facility]/25/23 09:43 [facility] Family History Mother Heart disease Father Heart [...] Recorded Date Recorded By Document 01/25/23 09:15 [facility] [id number] 01/25/23 09:39 [facility] 01/25/23 09:15 - Today's Visit Information Type [...] Bottom <Entered> (a) Communication Assessment Preferred language Gambian Weblogic Administrator Required No Able to Read Yes Able [...] in Ability to Perform Denies Any Declines Culture/Yazidism/Enterprise Application Administrator Cultural/Yazidism Needs that may affect No Treatment Plan Teaching: Wound Center *Welcome to the Wound Center -Person Taught Patient -Teaching Method Discussion -Response to teaching Verbalize understanding Welcome to the Wound Care Center Burmese (a) 1 - + WC - Nurse 1 - General Ulcer Measurement Start: 01/25/23 09:11 Freq: Status: Active Protocol: Activity Type Activity Date Activity User E-sign Co-sign Detail Recorded Client Recorded Date Recorded By Document 01/25/23 09:15 [facility] [id number] 01/25/23 09:39 [facility] 01/25/23 09:15 Wound Center Nurse 1 #1- [...] Date Recorded By Document 01/25/23 09:55 MW [id number] 01/25/23 10:02 MW 01/25/23 09:55 Wound Center [...] Recorded Date Recorded By Document 01/25/23 10:42 [id number] 01/25/23 10:43 RB 01/25/23 10:42 Wound Care [...] 1244 <Electronically signed by Mariela Martines NP [employer]ED[employer]-C> Cosigner Signature (if applicable): CC: ~ Signed [facility] Work Phone: 1(871) 945-770809-07-2021 History of Present illness Narrative* Encounter Date [...] are heavy and painful.Has vascular clinic in [place] she would like to be referred to [...] notes she is going to go to [place] for this; just had surgery at the [facility]. Hypertension stable; continue current medications3.Hypokalemia pt [...] mobility. Pertinent negatives include bruising and crepitus. [employer] Work Phone: 1(594) 932-464609-24-2020 Instructions* Date Instruction Additional Infor mation Counseled on weight reduction Counseled on dietary changes [employer] Work Phone: consult note* Clinical Note Date No Information [employer] Work Phone: Discharge summary* Clinical Note Date No Information [employer] Work Phone: Discharge summary Author Harrison Roper [facility] December 30, 2023 1:45pm Note Date/Time December 30, 2023 1:3 0pm [facility] Medical Records Department [address] [place] [address] Discharge Summary 12/30/23 1330 MR#: [id number] Acct: [id number] Name: MARY ALICE GA Rep #:[id number] : 1950 73 From: Harrison Hughes PCP: Dr. Khanh Rodriguez MD Status:A DM IN [facility] Prov[facility] Date of Admission: 12/27/23 Date of Discharge: 12/30/23 Primary Care Physician: Dr. Khanh Rodriguez MD Consultations 12/27/23 14:09 Consult: Gastroenterology Routine Consulting Provider: [facility] Reason for Consult: GI bleed, portal hypertension cirrhosis EMERGENT Consult: No MD Notified: Yes Date Notified: 12/27/23 Time Notified: 12:36 Method of Notification: ED Physician Initiated 12/27/23 15:10 Consult: Onc/Wound/manager scientific Routine Comment: Reason for Consult:: R ankle [...] of breast cancer: Patient on anastrozole.Patient follows [facility] dexter. On alendronate continued Discharge medication reconciliation done. [...] or advanced directive. Her is power of defense attorney for health. After discussion of benefits/risks [...] Khanh Rodriguez MD [Primary Care Provider] - FriendJohny DO [Med Staff - Active Staff] - Within 1 Month Disposition Disposition (needs filled in before D/C Order can be placed): Home Health Service Charges/Coding Visit Charges Inpatient E&M: 27852 Disch Hosp >30min 12/30/23 1345 <Electronically signed by Harrison Roper MD> Cosigner Signature (if applicable): CC: Dr. Khanh Rodriguez MD; Dr. Harrison Roper MD~ Signed [facility] Work Phone: Evaluation note* Type Assessment Date No Information [facility] Work Phone: Evaluation noteNo assessment information available [facility] Work Phone: Evaluation note* Diagnosis Onset Date Resolution Status Age-related physical debility acute Hypotension acute Post-menopausal acute GERD (gastroesophageal reflux disease) chronic Left hip pain chronic 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 Vertigo chronic [facility] Work Phone: Evaluation note* Diagnosis Onset Date Resolution Status Age-related physical debility acute Hypotension acute Post-menopausal acute GERD (gastroesophageal reflux disease) chronic Left hip pain chronic 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 Vertigo chronic Hyponatremia acute Osteoporosis acute [facility] Work Phone: Evaluation note* Diagnosis Onset Date Resolution Status Age-related physical debility acute Hypotension acute Post-menopausal acute GERD (gastroesophageal reflux disease) chronic Left hip pain chronic 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 Vertigo chronic Hyponatremia acute Osteoporosis acute Hyponatremia acute Osteoporosis acute Dermatitis chronic GERD (gastroesophageal reflux disease) chronic Hypertension chronic [facility] Work Phone: Evaluation note* Diagnosis Pain- Primary [facility]ized [facility] Diagnosis Onset Date Resolution Status Cellulitis of right leg acut e Screening for thyroid disorder acute Ulcer of right leg acute Dermatitis chronic Hypertension chronic Osteoporosis chronic Edema of both lower extremities acute Ulcer of right leg acute 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 [facility] Work Phone: Evaluation note* Diagnosis Onset [...] 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 [facility] Work Phone: Evaluation note* Diagnosis Onset [...] 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 [facility] Work Phone: Evaluation note* Diagnosis Onset [...] 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 [facility] Work Phone: Evaluation note* Diagnosis Onset [...] skin cancer ch ronic Umbilical hernia chronic [facility] Work Phone: Evaluation note* Diagnosis Onset [...] acute Edema of both lower extremities chronic [facility] Work Phone: Evaluation note* Diagnosis Onset [...] ronic Umbilical hernia chronic Back pain noneactive [facility] Work Phone: Evaluation note* Diagnosis Onset [...] ronic Umbilical hernia chronic Back pain noneactive [facility] Work Phone: Evaluation note* Diagnosis Onset [...] acut e Cirrhosis acute Umbilical hernia chronic [facility] Work Phone: Evaluation note* Diagnosis Onset [...] leg acute Venous ulcer of ankle acute [facility] Work Phone: Evaluation note* Diagnosis Onset [...] lower extremity 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 [facility] Work Phone: Evaluation note* Diagnosis Onset [...] leg acute Venous ulcer of ankle acute [facility] Work Phone: Evaluation note* Diagnosis Onset [...] lower extremity 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 [facility] Work Phone: Evaluation note* Diagnosis Onset [...] Venous insufficiency of right lower extremity acute [facility] Work Phone: Evaluation note* Diagnosis Onset [...] lower extremity 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 [facility] Work Phone: Evaluation note* Diagnosis Onset [...] Venous insufficiency of right lower extremity chronic [facility] Work Phone: Evaluation note* Diagnosis Onset [...] Venous insufficiency of right lower extremity chronic [facility] Work Phone: Evaluation note* Diagnosis Onset [...] lower extremity chronic Alcoholic acute Diarrhea acute [facility] Work Phone: Evaluation note* Diagnosis Onset [...] Venous insufficiency of right lower extremity chronic [facility] Work Phone: Evaluation note* Diagnosis Onset [...] hepatic cirrhosis acute Jaundice acute Thrombocytopenia acute [facility] Work Phone: Evaluation note* Diagnosis Onset [...] hepatic cirrhosis acute Jaundice acute Thrombocytopenia acute [facility] Work Phone: Evaluation note* Diagnosis Onset [...] chronic Acute upper GI bleeding reso lved [facility] Work Phone: Evaluation note* Diagnosis Other malaise- Primary [facility] [place] [facility] Diagnosis Other malaise- Primary [facility] [place] [facility]* Diagnosis Other malaise- Primary [facility] [place] [facility]* Diagnosis Other malaise- Primary [facility] [place] [facility] Diagnosis Other malaise- Primary [facility] [place] [facility]* Diagnosis Venous ulcer (HCC) Chronic ulcer of unspecified site Venous (peripheral) insufficiency Unspecified venous (peripheral) insufficiency Secondary lymphedema Other lymphedema [facility] [place] [facility]* Diagnosis Venous ulcer (HCC)- Primary Chronic ulcer of unspecified site Venous (peripheral) insufficiency Unspecified venous (peripheral) insufficiency Secondary lymphedema Other lymphedema [facility] [place] [facility]* Diagnosis Other malaise- Primary [facility] [place] [facility]* Diagnosis Venous ulcer (HCC)- Primary Chronic ulcer of unspecified site Venous (peripheral) insufficiency Unspecified venous (peripheral) insufficiency Secondary lymphedema Other lymphedema [facility] [place] [facility] Diagnosis Other malaise- Primary [facility] [place] [facility]* Diagnosis Other malaise- Primary [facility] [place] [facility]* Diagnosis Venous ulcer (HCC)- Primary Chronic ulcer of unspecified site Venous (peripheral) insufficiency Unspecified venous (peripheral) insufficiency Secondary lymphedema Other lymphedema Symptomatic varicose veins of both lower extremities Varicose veins of lower extremities with other complications [facility] [place] [facility]* Diagnosis Venous ulcer (HCC)- Primary Chronic ulcer of unspecified site Venous (peripheral) insufficiency Unspecified venous (peripheral) insufficiency Secondary lymphedema Other lymphedema [facility] [place] [facility]* Diagnosis Other malaise- Primary [facility] [place] [facility]* Diagnosis S/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 Degenerative scoliosis [facility] [place] [facility]* Diagnosis Venous ulcer (HCC)- Primary Chronic ulcer of unspecified site Venous (peripheral) insufficiency Unspecified venous (peripheral) insufficiency Secondary lymphedema Other lymphedema [facility] [place] [facility]* Diagnosis Other malaise- Primary [facility] [place] [facility]* Diagnosis Venous ulcer (HCC)- Primary Chronic ulcer of unspecified site Venous (peripheral) insufficiency Unspecified venous (peripheral) insufficiency Secondary lymphedema Other lymphedema documented [facility] [place] [facility]* Diagnosis Other malaise- Primary [facility] Diagnosis Venous ulcer (HCC)- Primary Chronic ulcer of unspecified site Venous (peripheral) insufficiency Unspecified venous (peripheral) insufficiency Secondary lymphedema Other lymphedema documented [facility] [place] [facility]* Diagnosis Venous ulcer (HCC)- Primary Chronic ulcer of unspecified site Venous (peripheral) insufficiency Unspecified venous (peripheral) insufficiency Secondary lymphedema Other lymphedema [facility] [place] [facility]* Diagnosis Pain in left hip Pain in joint, pelvic region and thigh [facility] [place] [facility]* Diagnosis Venous (peripheral) insufficiency Unspecified venous (peripheral) insufficiency Symptomatic varicose veins of both lower extremities Varicose veins of lower extremities with other complications [facility] [place] [facility]* Diagnosis Venous ulcer (HCC)- Primary Chronic ulcer of unspecified site Venous (peripheral) insufficiency Unspecified venous (peripheral) insufficiency [facility] [place] [facility]* Diagnosis Venous ulcer (HCC)- Primary Chronic ulcer of unspecified site Venous (peripheral) insufficiency Unspecified venous (peripheral) insufficiency Secondary lymphedema Other lymphedema [facility] [place] [facility]* Diagnosis Venous ulcer (HCC)- Primary Chronic ulcer of unspecified site Venous (peripheral) insufficiency Unspecified venous (peripheral) insufficiency Secondary lymphedema Other lymphedema documented [facility] [place] [facility]* Diagnosis Degenerative scoliosis- Primary [facility] [place] [facility]* Diagnosis Venous ulcer (HCC)- Primary Chronic ulcer of unspecified site Venous (peripheral) insufficiency Unspecified venous (peripheral) insufficiency Secondary lymphedema Other lymphedema documented [facility] [place] [facility]* Diagnosis Venous ulcer (HCC)- Primary Chronic ulcer of unspecified site Venous (peripheral) insufficiency Unspecified venous (peripheral) insufficiency Secondary lymphedema Other lymphedema documented [facility] [place] [facility]* Diagnosis Venous ulcer (HCC)- Primary Chronic ulcer of unspecified site Venous (peripheral) insufficiency Unspecified venous (peripheral) insufficiency Secondary lymphedema Other lymphedema documented [facility] [place] [facility]* Diagnosis Venous ulcer (HCC)- Primary Chronic ulcer of unspecified site Venous (peripheral) insufficiency Unspecified venous (peripheral) insufficiency Secondary lymphedema Other lymphedema [facility] [place] [facility]* Diagnosis Venous ulcer (HCC)- Primary Chronic ulcer of unspecified site [facility] [place] [facility]* Diagnosis Venous ulcer (HCC)- Primary Chronic ulcer of unspecified site [facility] [place] [facility]* Diagnosis Venous ulcer of right lower extremity with varicose veins (HCC)- Primary Varicose veins of lower extremities with ulcer Venous ulcer (HCC) Chronic ulcer of unspecified site [facility] [place] [facility]* Diagnosis Venous ulcer (HCC)- Primary Chronic ulcer of unspecified site [facility] [place] [facility]* Diagnosis Venous ulcer (HCC)- Primary Chronic ulcer of unspecified site [facility] [place] [facility]* Diagnosis Pseudomonas aeruginosa infection- Primary Pseudomonas infection in conditions classified elsewhere and of unspecified site Venous ulcer (HCC) Chronic ulcer of unspecified site Alcoholic cirrhosis of liver with ascites (HCC) Alcoholic cirrhosis of liver Anxiety Anxiety state, unspecified Infection Unspecified infectious and parasitic diseases documented in this encounter [facility] note* Diagnosis Venous ulcer (HCC)- Primary Chronic ulcer of unspecified site documented in this encounter [facility] note* Diagnosis Abrasion of left lower leg with infection, initial encounter- Primary [facility]* Diagnosis Venous ulcer (HCC)- Primary Chronic ulcer of unspecified site [facility] [place] [facility]* Diagnosis Venous ulcer (HCC)- Primary Chronic ulcer of unspecified site [facility] [place] [facility]* Diagnosis Pseudomonas aeruginosa infection- Primary Pseudomonas infection in conditions classified elsewhere and of unspecified site Venous ulcer (HCC) Chronic ulcer of unspecified site Alcoholic cirrhosis of liver with ascites (HCC) Alcoholic cirrhosis of liver Anxiety Anxiety state, unspecified Umbilical hernia without obstruction or gangrene Umbilical hernia without mention of obstruction or gangrene documented in this encounter [facility] note* Diagnosis Venous ulcer (HCC)- Primary Chronic ulcer of unspecified site [facility] [place] [facility]* Diagnosis Venous ulcer (HCC)- Primary Chronic ulcer of unspecified site [facility] [place] [facility]* Diagnosis Venous ulcer (HCC)- Primary Chronic ulcer of unspecified site [facility] Sp[facility] stenosis of lumbar region with neurogenic claudication- Primary Spinal stenosis, lumbar region, with neurogenic claudication Low back pain, unspecified back pain laterality, unspecified chronicity, unspecified whether sciatica present [facility] Diagnosis Venous ulcer (HCC)- Primary Chronic ulcer of unspecified site [facility] [place] [facility]* Diagnosis Venous stasis ulcer of calf with fat layer exposed, unspecified laterality, unspecified whether varicose veins present (HCC)- Primary Venous ulcer (HCC) Chronic ulcer of unspecified site [facility]* Clinical Note Date No Information [facility] Work Phone: History and physical note Author Harrison Roper [facility] December 27, 2023 1:37pm Note Date/Time December 27, 2023 1:3 1pm [facility] Medical Records Department [address] [place] [id number] H&P Exam - Hospitalist 12/27/23 1317 MR#: [id number] Acct: [id number] Name: MARY ALICE GA Rep #:[id number] : 1950 73 From: Harrison Hughes PCP: Dr. Khanh Rodriguez MD Status:A DM IN Location: [facility] [id number] HPI - General General Date of [...] or pattern drinking alcohol even on asking. [facility] Medical History Abnormal mammogram of left [...] Sl. Cloudy, Urine pH 7.0, Ur Specific [place] 1.005, Urine Protein 15 H, Urine Glucose [...] (Auto) 73.0 H, Lymph % (Auto) 19.2, Teller % (Auto) 6.7, Eos % (Auto) 0.4, [...] of breast cancer: Patient on anastrozole.Patient follows [facility]. On alendronate continued Living will/advanced directive/end of life care: Patient does not living will or advanced directive. Her is power of defense attorney for health. After discussion of benefits/risks procedures involved with full code, DNR CC arrest and DNR CC, the patient opted for full code. Patient does want artificial life support including intubation, tube feed, ventilator and/chest compression, central venous catheter, vasopressor and DC shock if needed Total time spent in [id number] encounter in discussion of advanced directive 17 minutes. Microbiology Past 72 Hours 12/27/23 09:39 Stool Stool Occult Blood (KENDRA) - Final Occult Blood Positive Laboratory Results 12/27/23 09:25: Urine Color Yellow, Urine Clarity Sl. Cloudy, Urine pH 7.0, Ur Specific [place] 1.005, Urine Protein 15 H, Urine Glucose [...] (Auto) 73.0 H, Lymph % (Auto) 19.2, Teller % (Auto) 6.7, Eos % (Auto) 0.4, [...] containing fat. Charges/Coding Visit Charges Inpatient E&M: 94187 Init Hosp L3 Procedures Hospitalists Procedures: 29591 Advncd Care Plan 30 Min 12/27/23 1337 <Electronically signed by Harrison Roper MD> Cosigner Signature (if applicable): CC: Dr. Khanh Rodriguez MD; Dr. Harrison Roper MD~ Signed [facility] Work Phone: Hospital Discharge instructionsAmbulatory Orders* Gastroenterology Location: None Selected [facility] Work Phone: Hospital Discharge instructionsAmbulatory Orders* Orthopedics Location: None Selected * Pain Management Location: None Selected [facility] Work Phone: Progress note* Clinical Note Date No Information [facility] Work Phone: Rekzkt for referral (narrative)* Reason For Referral No Information [facility] Work Phone: Redvbh for referral (narrative)* Diagnostic Procedure Only (Routine) - Authorized Specialty Diagnoses / Procedures Referred By Contac t Referred To Contact XR IMAGING Diagnoses Pain Procedures XR HIP GENERAL 3V PELV/AP/LAT LEFT RADEX HIP UNILATERAL WITH PELVIS 2-3 VIEWS Yoseph Briones MD [address] [place] [address] Xr Imaging Referral ID Status Reason Start Date Expiration Date Visits Requested Visits Authorized [id number] Authorized Auto-Generat ed Referral 10/18/2022 11/17/2023 1 1 [facility] for referral (narrative)* Outpatient Procedure (Routine) - Authorized Specialty Diagnoses / Procedures Referred By Contac t Referred To [facility] Diagnoses Venous (peripheral) insufficiency Symptomatic varicose veins of both lower extremities Procedures US VENOUS INCOMPETENCY [facility]ERT [facility] LAB DUP-SCAN XTR VEINS COMPLETE BILATERAL STUDY Gt Yin DO [address] [place] [address] [facility] [address] [address] Referral ID Status Reason Start Date Expiration Date Visits Requested Visits Authorized [id number] Authorized Auto-Generat ed Referral 02/27/2024 02/26/2025 1 1 * Physical Therapy (Routine) - Authorized Specialty Diagnoses / Procedures Referred By Contac t Referred To Contact [facility] Diagnoses Venous ulcer (HCC) Venous (peripheral) insufficiency Secondary lymphedema Procedures CONSULT TO PHYSICAL THERAPY PHYSICAL THERAPY EVALUATION HIGH COMPLEX 45 MINS Gt Yin DO [address] [place] [address] [facility] [place] [address] Referral ID Status Reason Start Date Expiration Date Visits Requested Visits Authorized [id number] Authorized PCP Requested Referral Auto-Generate d Referral 02/27/2024 02/26/2025 99 99 [facility] for referral (narrative)* Diagnostic Procedure Only (Routine) - Closed Specialty Diagnoses / Procedures Referred By Contac t Referred To Contact XR IMAGING Diagnoses Pain in left hip Procedures XR HIP 2V AP/LAT LEFT (AK,FL,ME,UN) RADEX HIP UNILATERAL WITH PELVIS 2-3 VIEWS Abdirahman Wright APRN.RN ER [address] [place] [address] [place] [address] Referral ID Status Reason Start Date Expiration Date V isits Requested Visits Authorized [id number] Closed Auto-Generate d Referral 03/13/2024 04/12/2025 1 1 [facility] for visit Narrative* Diagnostic Procedure Only (Routine) - Closed Specialty Diagnoses / Procedures Referred By Tara t Referred To Contact XR IMAGING Diagnoses Pain in left hip Procedures XR HIP 2V AP/LAT LEFT (AK,FL,ME,UN) RADEX HIP UNILATERAL WITH PELVIS 2-3 VIEWS Abdirahman Wright APRN.RN [address] [place] [address] [place] [address] Referral ID Status Reason Start Date Expiration Date V isits Requested Visits Authorized [id number] Closed Auto-Generate d Referral 03/13/2024 04/12/2025 1 1 [facility] for visit Narrative* Outpatient Procedure (Routine) - Closed Specialty Diagnoses / Procedures Referred By Tara bravo Referred To [facility] Diagnoses Venous (peripheral) insufficiency Symptomatic varicose veins of both lower extremities Procedures US VENOUS INCOMPETENCY ALBERT VAS LAB DUP-SCAN XTR VEINS COMPLETE BILATERAL STUDY Gt Yin DO [address] [place] [address] [facility] [place] [address] [place] [address] Referral ID Status Reason Start Date Expiration Date V isits Requested Visits Authorized [id number] Closed Auto-Generate d Referral 02/27/2024 02/26/2025 1 1 [facility] Summary Purpose Family History Family Member [...] Documents on File Type Date Recorded Patient Materials Director Expl anation Advance Directives and Living Will Power of Foreign Languages Professor Directive Yes / No Effective Date File Name No Information Advance Directive Response Recorded Date/ Time Living Will No June 09 12:10pm Power of Foreign Languages Professor No June 09 021 12:10pm Advance Directive Response Recorded Date/ Time Living Will No January 20, 2023 1 0:41am Power of Foreign Languages Professor No January 20, 2023 10:41am Advance Directive Response Recorded Date/ Time Name of Medical Power of Foreign Languages Professor RANJIT SKYENIA [facility] June 12, 2023 2:18pm Living Will Yes June 12 2:18pm Power of Foreign Languages Professor Yes June 12 023 2:18pm Advance Directive Response Recorded Date/ Time Name of Medical Power of Foreign Languages Professor RANJIT SKYENIA [facility] June 12, 2023 1:18pm Living Will Yes June 12 3 1:18pm Power of Foreign Languages Professor Yes June 12 023 1:18pm Advance Directive Response Recorded Date/ Time Living Will Yes June 12 3 1:18pm Power of Foreign Languages Professor Yes June 12 023 1:18pm Advance Directive Response Recorded Date/ Time Advance Directives No October 8:24am Living Will No October 25 024 8:24am Power of Foreign Languages Professor No October 25, 2023 8:24am Advance Directive Response Recorded Date/ Time Advance Directives on File Yes 2023 11:20am Name of Medical Power of Foreign Languages Professor ranjit rizvi October 26, 2023 11:20am Advance Directives Yes October 11:20am Living Will Yes October 26, 024 11:20am Power of Foreign Languages Professor Yes October 26, 2023 11:20am Advance Directive Response Recorded Date/ Time Advance Directives on File Yes Neil leigh 2023 12:20pm Name of Medical Power of Foreign Languages Professor ranjit rizvi October 26, 2023 12:20pm Advance Directives Yes October 12:20pm Living Will Yes October 26 12:20pm Power of Foreign Languages Professor Yes October 26, 2023 12:20pm Advance Directive Response Recorded Date/ Time Advance Directives on File Yes Neil reese 2023 12:20pm Name of Medical Power of Foreign Languages Professor ranjit rizvi October 26, 2023 12:20pm Advance Directives Yes October 12:20pm Living Will No December 27, 2023 10:17am Power of Foreign Languages Professor No December 26 10:17am Advance Directive Response Recorded Date/ Time Advance Directives on File Yes Neil reese 2023 12:20pm Name of Medical Power of Foreign Languages Professor ranjit rzivi October 26, 2023 12:20pm Name of Medical Power of Foreign Languages Professor Ranjit Ga December 27, 2023 2:18pm Advance Directives Yes October 12:20pm Living Will Yes December 27, 2023 2:18pm Power of Foreign Languages Professor Yes December 26 2:18pm Advance Directive Response Recorded Date/ Time Advance Directives Yes December 31 024 3:20pm Living Will Yes January 01, 2024 3:20pm Power of Foreign Languages Professor Yes December 31 3:20pm Advance Directives on File Yes Neil reese 2023 12:20pm Name of Medical Power of Foreign Languages Professor ranjit rizvi October 26, 2023 12:20pm Name of Medical Power of Foreign Languages Professor Ranjit Ga December 27, 2023 2:18pm Advance Directive Response Recorded Date/ Time Advance Directives Yes December 31, 2 024 3:20pm Advance Directive Response Recorded Date/ Time Living Will No May 15, 2024 2:03pm Do you have a Healthcare Power of Foreign Languages Professor? No May 15, 2024 2:03pm Living Will Yes January 01, 2024 3:20pm Do you have a Healthcare Power of Foreign Languages Professor? Yes January 01, 2024 3:20pm Advance Directives Yes January 23 3:15pm Advance Directive Response Recorded Date/ Time Living Will No May 15, 2024 2:03pm Do you have a Healthcare Power of Foreign Languages Professor? No May 15, 2024 2:03pm Living Will Yes January 01, 2024 3:20pm Do you have a Healthcare Power of Foreign Languages Professor? Yes January 01, 2024 3:20pm Advance Directives [...] 21, 2025 8:04am Decompensated hepatic cirrhosis Septembe 2024 8:04am Osteoporosis May 21, 2025 8:04am Chief Complaint Admit Date ACUTE-MED DISCUSSION/REFILLS January 22 11:42am 6 MO - LABS January 23, 2025 12:30 pm 7 MO, LABS January 23, 2025 12:32 pm EVENITY January 31, 2025 10:25 am Reason for Visit Admit Date Back pain January 22, 2025 11:42 am Compression fracture of lumbar vertebra January 22, 2025 11:42am Breast cancer January 23, 2025 12:32 pm Chief Complaint Admit Date ACUTE-MED DISCUSSION/REFILLS January 22 11:42am Chief Complaint WOUND CONSULT-VENOUS INSUFFICIENCY & PAD WOUND WOUND WOUND WOUND Pain in right leg Non-pressure chronic ulcer of unspecified part of WOUND SAPHINOUS VAIN SAPHINOUS VAIN WOUND WOUND POST OP F/U POST OP chk up DYSPNEA WOUND ACUTE DIARRHEA [id number] WOUND WOUND WOUND UPPER GI BLEED UPPER [...] OP chk up DYSPNEA WOUND ACUTE DIARRHEA [id number] WOUND WOUND WOUND UPPER GI BLEED UPPER [...] OP chk up DYSPNEA WOUND ACUTE DIARRHEA [id number] WOUND WOUND WOUND Reason for Visit Non-pressure [...] chk up DYSPNEA WOUND WOUND ACUTE DIARRHEA [id number] Reason for Visit Breast cancer Breast cancer [...] veins of both lower extremities Chief Complaint DECKHAND CLAM DREDGE, EST. CARE POST MEHUL DISCUSS OSTEOPEROSIS TREATMENT DIZZINESS,GIDDINESS,LT HIP PN/RX HERE 2 M FU Reason for Visit Age-related physical debility Hypotension Post-menopausal GERD (gastroesophageal reflux disease) Left hip pain Varicose veins of both lower extremities Vertigo Hyponatremia Osteoporosis Hyponatremia Osteoporosis Dermatitis GERD (gastroesophageal reflux disease) Hypertension Chief Complaint DECKHAND CLAM DREDGE, EST. CARE POST MEHUL DISCUSS OSTEOPEROSIS TREATMENT DIZZINESS,GIDDINESS,LT HIP PN/RX HERE Reason for Visit Age-related physical debility Hypotension Post-menopausal GERD (gastroesophageal reflux disease) Left hip pain Varicose veins of both lower extremities Vertigo Hyponatremia Osteoporosis Chief Complaint DECKHAND CLAM DREDGE, EST. CARE POST MEHUL DIZZINESS,GIDDINESS,LT HIP PN/RX HERE Reason for Visit Age-related physical debility Hypotension Post-menopausal GERD (gastroesophageal reflux disease) Left hip pain Varicose veins of both lower extremities Vertigo Chief Complaint DECKHAND CLAM DREDGE, EST. CARE Reason for Visit Age-related physical debility Hypotension Post-menopausal GERD (gastroesophageal reflux disease) Left hip pain Varicose veins of both lower extremities Vertigo Reason for Referral Specialty Diagnoses / Procedures Referred By Contac t Referred To Contact [facility] [place] Diagnoses Degenerative scoliosis Procedures CON[facility]ULT TO [facility] OFFICE/OUTPATIENT [facility] 60 MINUTES Marisela Mccarty MD [address] [place] [id number] Referral ID Status Reason Start Date Expiration Date Visits Requested Visits Authorized [id number] Authorized PCP Requested Referral 04/02/2024 04/02/2025 1 1 Specialty Diagnoses / Procedures Referred By Contac t Referred To Contact [facility] Diagnoses Degenerative scoliosis Procedures CONSULT TO PHYSICAL THERAPY PHYSICAL THERAPY EVALUATION [facility] 45 MINS Monse Merlos PA-C [address] [place] [id number] [facility] [place] [address] [place] [id number] Referral ID Status Reason Start Date Expiration Date Visits Requested Visits Authorized [id number] Authorized PCP Requested Referral Auto-Generate d Referral 06/12/2024 06/12/2025 99 99 Additional Source Comments INFORMATION SOURCE (unrecogn ized section and content) DATE CREATED AUTHOR 02/27/2018 [facility] DATE CREATED AUTHOR AUTHOR'S ORGANIZ ATION 07/09/2019 [facility] DATE CREATED AUTHOR AUTHOR'S ORGANIZ ATION 09/20/2019 [facility] DATE CREATED AUTHOR AUTHOR'S ORGANIZ ATION 02/13/2020 [facility] DATE CREATED AUTHOR AUTHOR'S ORGANIZ ATION 05/06/2021 [facility] DATE CREATED AUTHOR AUTHOR'S ORGANIZ ATION 05/16/2024 [facility] DATE CREATED AUTHOR AUTHOR'S ORGANIZ ATION 09/21/2024 [facility] DATE CREATED AUTHOR AUTHOR'S ORGANIZ ATION 05/28/2025 [facility] DATE CREATED AUTHOR AUTHOR'S ORGANIZ ATION 06/06/2025 [facility] Goals (unrecognized section and content) Goals may be documented in a n alternate section Source Comments (unrecognize d section and content) In the event this informatio n is protected by the Federal Confidentiality of Alcohol and Drug Abuse Patient Records regulations: The Federal rules restrict any use of the information to criminally investigate or prosecute any alcohol or drug abuse patient.[facility] the event this information is protected by the Federal Confidentiality of Alcohol and Drug Abuse Patient Records regulations: The Federal rules restrict any use of the information to criminally investigate or prosecute any alcohol or drug abuse patient.[facility] HospitalIn the event this information is protected by the Federal Confidentiality of Alcohol and Drug Abuse Patient Records regulations: The Federal rules restrict any use of the information to criminally investigate or prosecute any alcohol or drug abuse patient.[facility] HospitalIn the event this information is protected by the Federal Confidentiality of Alcohol and Drug Abuse Patient Records regulations: The Federal rules restrict any use of the information to criminally investigate or prosecute any alcohol or drug abuse patient.[facility] HospitalIn the event this information is protected by the Federal Confidentiality of Alcohol and Drug Abuse Patient Records regulations: The Federal rules restrict any use of the information to criminally investigate or prosecute any alcohol or drug abuse patient.[facility] HospitalIn the event this information is protected by the Federal Confidentiality of Alcohol and Drug Abuse Patient Records regulations: The Federal rules restrict any use of the information to criminally investigate or prosecute any alcohol or drug abuse patient.[facility] HospitalIn the event this information is protected by the Federal Confidentiality of Alcohol and Drug Abuse Patient Records regulations: The Federal rules restrict any use of the information to criminally investigate or prosecute any alcohol or drug abuse patient.[facility] HospitalIn the event this information is protected by the Federal Confidentiality of Alcohol and Drug Abuse Patient Records regulations: The Federal rules restrict any use of the information to criminally investigate or prosecute any alcohol or drug abuse patient.[facility] HospitalIn the event this information is protected by the Federal Confidentiality of Alcohol and Drug Abuse Patient Records regulations: The Federal rules restrict any use of the information to criminally investigate or prosecute any alcohol or drug abuse patient.[facility] HospitalIn the event this information is protected by the Federal Confidentiality of Alcohol and Drug Abuse Patient Records regulations: The Federal rules restrict any use of the information to criminally investigate or prosecute any alcohol or drug abuse patient.[facility] HospitalIn the event this information is protected by the Federal Confidentiality of Alcohol and Drug Abuse Patient Records regulations: The Federal rules restrict any use of the information to criminally investigate or prosecute any alcohol or drug abuse patient.[facility] HospitalIn the event this information is protected by the Federal Confidentiality of Alcohol and Drug Abuse Patient Records regulations: The Federal rules restrict any use of the information to criminally investigate or prosecute any alcohol or drug abuse patient.[facility] HospitalIn the event this information is protected by the Federal Confidentiality of Alcohol and Drug Abuse Patient Records regulations: The Federal rules restrict any use of the information to criminally investigate or prosecute any alcohol or drug abuse patient.[facility] HospitalIn the event this information is protected by the Federal Confidentiality of Alcohol and Drug Abuse Patient Records regulations: The Federal rules restrict any use of the information to criminally investigate or prosecute any alcohol or drug abuse patient.[facility] HospitalIn the event this information is protected by the Federal Confidentiality of Alcohol and Drug Abuse Patient Records regulations: The Federal rules restrict any use of the information to criminally investigate or prosecute any alcohol or drug abuse patient.[facility] HospitalIn the event this information is protected by the Federal Confidentiality of Alcohol and Drug Abuse Patient Records regulations: The Federal rules restrict any use of the information to criminally investigate or prosecute any alcohol or drug abuse patient.[facility] HospitalIn the event this information is protected by the Federal Confidentiality of Alcohol and Drug Abuse Patient Records regulations: The Federal rules restrict any use of the information to criminally investigate or prosecute any alcohol or drug abuse patient.[facility] HospitalIn the event this information is protected by the Federal Confidentiality of Alcohol and Drug Abuse Patient Records regulations: The Federal rules restrict any use of the information to criminally investigate or prosecute any alcohol or drug abuse patient.[facility] HospitalIn the event this information is protected by the Federal Confidentiality of Alcohol and Drug Abuse Patient Records regulations: The Federal rules restrict any use of the information to criminally investigate or prosecute any alcohol or drug abuse patient.[facility] HospitalIn the event this information is protected by the Federal Confidentiality of Alcohol and Drug Abuse Patient Records regulations: The Federal rules restrict any use of the information to criminally investigate or prosecute any alcohol or drug abuse patient.[facility] HospitalIn the event this information is protected by the Federal Confidentiality of Alcohol and Drug Abuse Patient Records regulations: The Federal rules restrict any use of the information to criminally investigate or prosecute any alcohol or drug abuse patient.[facility] HospitalIn the event this information is protected by the Federal Confidentiality of Alcohol and Drug Abuse Patient Records regulations: The Federal rules restrict any use of the information to criminally investigate or prosecute any alcohol or drug abuse patient.[facility] HospitalIn the event this information is protected by the Federal Confidentiality of Alcohol and Drug Abuse Patient Records regulations: The Federal rules restrict any use of the information to criminally investigate or prosecute any alcohol or drug abuse patient.[facility] HospitalIn the event this information is protected by the Federal Confidentiality of Alcohol and Drug Abuse Patient Records regulations: The Federal rules restrict any use of the information to criminally investigate or prosecute any alcohol or drug abuse patient.[facility] HospitalIn the event this information is protected by the Federal Confidentiality of Alcohol and Drug Abuse Patient Records regulations: The Federal rules restrict any use of the information to criminally investigate or prosecute any alcohol or drug abuse patient.[facility] HospitalIn the event this information is protected by the Federal Confidentiality of Alcohol and Drug Abuse Patient Records regulations: The Federal rules restrict any use of the information to criminally investigate or prosecute any alcohol or drug abuse patient.[facility] HospitalIn the event this information is protected by the Federal Confidentiality of Alcohol and Drug Abuse Patient Records regulations: The Federal rules restrict any use of the information to criminally investigate or prosecute any alcohol or drug abuse patient.[facility] HospitalIn the event this information is protected by the Federal Confidentiality of Alcohol and Drug Abuse Patient Records regulations: The Federal rules restrict any use of the information to criminally investigate or prosecute any alcohol or drug abuse patient.[facility] HospitalIn the event this information is protected by the Federal Confidentiality of Alcohol and Drug Abuse Patient Records regulations: The Federal rules restrict any use of the information to criminally investigate or prosecute any alcohol or drug abuse patient.[facility] HospitalIn the event this information is protected by the Federal Confidentiality of Alcohol and Drug Abuse Patient Records regulations: The Federal rules restrict any use of the information to criminally investigate or prosecute any alcohol or drug abuse patient.[facility] HospitalIn the event this information is protected by the Federal Confidentiality of Alcohol and Drug Abuse Patient Records regulations: The Federal rules restrict any use of the information to criminally investigate or prosecute any alcohol or drug abuse patient.[facility] HospitalIn the event this information is protected by the Federal Confidentiality of Alcohol and Drug Abuse Patient Records regulations: The Federal rules restrict any use of the information to criminally investigate or prosecute any alcohol or drug abuse patient.[facility] HospitalIn the event this information is protected by the Federal Confidentiality of Alcohol and Drug Abuse Patient Records regulations: The Federal rules restrict any use of the information to criminally investigate or prosecute any alcohol or drug abuse patient.[facility] HospitalIn the event this information is protected by the Federal Confidentiality of Alcohol and Drug Abuse Patient Records regulations: The Federal rules restrict any use of the information to criminally investigate or prosecute any alcohol or drug abuse patient.[facility] HospitalIn the event this information is protected by the Federal Confidentiality of Alcohol and Drug Abuse Patient Records regulations: The Federal rules restrict any use of the information to criminally investigate or prosecute any alcohol or drug abuse patient.[facility] HospitalIn the event this information is protected by the Federal Confidentiality of Alcohol and Drug Abuse Patient Records regulations: The Federal rules restrict any use of the information to criminally investigate or prosecute any alcohol or drug abuse patient.[facility] HospitalIn the event this information is protected by the Federal Confidentiality of Alcohol and Drug Abuse Patient Records regulations: The Federal rules restrict any use of the information to criminally investigate or prosecute any alcohol or drug abuse patient.[facility] HospitalIn the event this information is protected by the Federal Confidentiality of Alcohol and Drug Abuse Patient Records regulations: The Federal rules restrict any use of the information to criminally investigate or prosecute any alcohol or drug abuse patient.[facility] HospitalIn the event this information is protected by the Federal Confidentiality of Alcohol and Drug Abuse Patient Records regulations: The Federal rules restrict any use of the information to criminally investigate or prosecute any alcohol or drug abuse patient.[facility] HospitalIn the event this information is protected by the Federal Confidentiality of Alcohol and Drug Abuse Patient Records regulations: The Federal rules restrict any use of the information to criminally investigate or prosecute any alcohol or drug abuse patient.[facility] HospitalIn the event this information is protected by the Federal Confidentiality of Alcohol and Drug Abuse Patient Records regulations: The Federal rules restrict any use of the information to criminally investigate or prosecute any alcohol or drug abuse patient.[facility] HospitalIn the event this information is protected by the Federal Confidentiality of Alcohol and Drug Abuse Patient Records regulations: The Federal rules restrict any use of the information to criminally investigate or prosecute any alcohol or drug abuse patient.[facility] HospitalIn the event this information is protected by the Federal Confidentiality of Alcohol and Drug Abuse Patient Records regulations: The Federal rules restrict any use of the information to criminally investigate or prosecute any alcohol or drug abuse patient.[facility] HospitalIn the event this information is protected by the Federal Confidentiality of Alcohol and Drug Abuse Patient Records regulations: The Federal rules restrict any use of the information to criminally investigate or prosecute any alcohol or drug abuse patient.[facility] HospitalIn the event this information is protected by the Federal Confidentiality of Alcohol and Drug Abuse Patient Records regulations: The Federal rules restrict any use of the information to criminally investigate or prosecute any alcohol or drug abuse patient.[facility] HospitalIn the event this information is protected by the Federal Confidentiality of Alcohol and Drug Abuse Patient Records regulations: The Federal rules restrict any use of the information to criminally investigate or prosecute any alcohol or drug abuse patient.[facility] HospitalIn the event this information is protected by the Federal Confidentiality of Alcohol and Drug Abuse Patient Records regulations: The Federal rules restrict any use of the information to criminally investigate or prosecute any alcohol or drug abuse patient.[facility] HospitalIn the event this information is protected by the Federal Confidentiality of Alcohol and Drug Abuse Patient Records regulations: The Federal rules restrict any use of the information to criminally investigate or prosecute any alcohol or drug abuse patient.[facility] HospitalIn the event this information is protected by the Federal Confidentiality of Alcohol and Drug Abuse Patient Records regulations: The Federal rules restrict any use of the information to criminally investigate or prosecute any alcohol or drug abuse patient.[facility] HospitalIn the event this information is protected by the Federal Confidentiality of Alcohol and Drug Abuse Patient Records regulations: The Federal rules restrict any use of the information to criminally investigate or prosecute any alcohol or drug abuse patient.[facility] HospitalIn the event this information is protected by the Federal Confidentiality of Alcohol and Drug Abuse Patient Records regulations: The Federal rules restrict any use of the information to criminally investigate or prosecute any alcohol or drug abuse patient.[facility] HospitalIn the event this information is protected by the Federal Confidentiality of Alcohol and Drug Abuse Patient Records regulations: The Federal rules restrict any use of the information to criminally investigate or prosecute any alcohol or drug abuse patient.[facility] HospitalIn the event this information is protected by the Federal Confidentiality of Alcohol and Drug Abuse Patient Records regulations: The Federal rules restrict any use of the information to criminally investigate or prosecute any alcohol or drug abuse patient.[facility] HospitalIn the event this information is protected by the Federal Confidentiality of Alcohol and Drug Abuse Patient Records regulations: The Federal rules restrict any use of the information to criminally investigate or prosecute any alcohol or drug abuse patient.[facility] HospitalIn the event this information is protected by the Federal Confidentiality of Alcohol and Drug Abuse Patient Records regulations: The Federal rules restrict any use of the information to criminally investigate or prosecute any alcohol or drug abuse patient.[facility] HospitalIn the event this information is protected by the Federal Confidentiality of Alcohol and Drug Abuse Patient Records regulations: The Federal rules restrict any use of the information to criminally investigate or prosecute any alcohol or drug abuse patient.[facility] HospitalIn the event this information is protected by the Federal Confidentiality of Alcohol and Drug Abuse Patient Records regulations: The Federal rules restrict any use of the information to criminally investigate or prosecute any alcohol or drug abuse patient.[facility] HospitalIn the event this information is protected by the Federal Confidentiality of Alcohol and Drug Abuse Patient Records regulations: The Federal rules restrict any use of the information to criminally investigate or prosecute any alcohol or drug abuse patient.[facility] HospitalIn the event this information is protected by the Federal Confidentiality of Alcohol and Drug Abuse Patient Records regulations: The Federal rules restrict any use of the information to criminally investigate or prosecute any alcohol or drug abuse patient.[facility] HospitalIn the event this information is protected by the Federal Confidentiality of Alcohol and Drug Abuse Patient Records regulations: The Federal rules restrict any use of the information to criminally investigate or prosecute any alcohol or drug abuse patient.[facility] HospitalIn the event this information is protected by the Federal Confidentiality of Alcohol and Drug Abuse Patient Records regulations: The Federal rules restrict any use of the information to criminally investigate or prosecute any alcohol or drug abuse patient.[facility] HospitalIn the event this information is protected by the Federal Confidentiality of Alcohol and Drug Abuse Patient Records regulations: The Federal rules restrict any use of the information to criminally investigate or prosecute any alcohol or drug abuse patient.[facility] Care Teams (unrecognized sec tion and [...] 2025 End: May 08, 2025 Dr. Khanh Rdoriguez MD Referring Provider Active Start: May 08, [...] February 28, 2025 End: February 28, 2025 Screen Cleaner Relationship Specialty Start Date End Date Khanh Rodriguez MD [address] [place] [id number] PCP - General Internal Medicine 01/25/24 Screen Cleaner Relationship Specialty Start Date End Date Abdirahman Conley MD [address] [place], [place] [id number] PCP - General Internal Medicine 06/05/19 Team [...] Provider, Referring Provider, Other Provider Active Kesha MARQUEZ PA-C Attending Provider Active Team Status: Inactive Member Role Status Dates Dr. Khanh Rodriguez MD Primary Care Provider, Refer ring Provider Active Kesha MARQUEZ PA-C Attending Provider Active Team Status: Active Member Role Status Dates Dr. Khanh Rodriguez MD Primary Care Provider Active Dr. Jacob Amor MD Attending Provider Active Dr. Uday Brooks MD Referring Provider Active Team Status: Inactive Member Role Status Dates Dr. Khanh Rodriguez MD Primary Care Provider, Refer ring Provider Active Kesha MARQUEZ PA-C Active Dr. Uday Brooks MD Attending Provider Active Team Status: Active Member Role Status Dates Dr. Khanh Rodriguez MD Primary Care Provider Active Mariela Martines DECKHAND CLAM DREDGE, DECKHAND CLAM DREDGE-C Other Provider Active Thalia Barroso DECKHAND CLAM DREDGE, DECKHAND CLAM DREDGE-C Attending Provider, Referri ng Provider Active Team Status: Inactive Member Role Status Dates Dr. Khanh Rodriguez MD Primary Care Provider, Refer ring Provider Active Dr. Nabeel Patel MD Attending Provider Active Team Status: Inactive Member Role Status Dates Dr. Khanh Rodriguez MD Primary Care Provider, Refer ring Provider Active Cesia Perry DECKHAND CLAM DREDGE, DECKHAND CLAM DREDGE-C Attending Provider Active Team Status: Inactive Member Role Status Dates Dr. Khanh Rodriguez MD Primary Care Provider, Refer ring Provider Active Dr. Alex Ha DO Attending Provider Active Team Status: Inactive Member Role Status Dates Dr. Khanh Rodriugez MD Primary Care Provider, Refer ring Provider Active Dr. Shabbir Galaviz MD Attending Provider Active Team Status: Active Member Role Status Dates Dr. Khanh Rodriguez MD Primary Care Provider Active Mariela Martines DECKHAND CLAM DREDGE, DECKHAND CLAM DREDGE-C Attending Provi douglas, Referring Provider, Other Provider Active Team Status: Inactive Member Role Status Dates Dr. Khanh Rodriguez MD Primary Care Provider Active Dr. Uday Brooks MD Admit Provider, Attending Provider, Referring Provider Active Team Status: Inactive Member Role Status Dates Dr. Khanh Rodriguez MD Primary Care Provider Active Mariela Martines DECKHAND CLAM DREDGE, DECKHAND CLAM DREDGE-C Attending Provider, Referring Provider Active Team Status: [...] Provider, Refer ring Provider Active Mariela Martines DECKHAND CLAM DREDGE, DECKHAND CLAM DREDGE-C Attending Provider, Other Pro vider Active Team Status: Active Member Role Status Dates Dr. Khanh Rodriguez MD Primary Care P rovidouglas, Attending Provider, Referring Provider Active Team Status: Inactive Member Role Status Dates Dr. Khanh Rodriguez MD Primary Care Provider, Refer ring Provider Active Mariela Martines DECKHAND CLAM DREDGE, DECKHAND CLAM DREDGE-C Attending Provider Active Screen Cleaner Relationship Specialty Start Date End Date Abdirahman Conley [address] [place] [address] PCP - General Internal Medicine 06/05/19 Reason for Visit (unrecogniz ed section and content) Reason Comments Physical Therapy Specialty Diagnoses / Procedures Referred By Contac t Referred To Contact [facility] Diagnoses Degenerative scoliosis Lumbar radiculopathy Chronic right-sided low back pain with right-sided sciatica Procedures CONSULT TO PHYSICAL THERAPY PHYSICAL THERAPY EVALUATION HIGH COMPLEX 45 MINS Monse Merlos PA-C [address] [place] [address] Phone: tel: fax: [facility] [address] [place] [address] Referral ID Status Reason Start Date Expiration Date Visits Requested Visits Authorized [id number] Authorized PCP Requested Referral Auto-Generate d Referral 06/12/2024 06/12/2025 99 99 Reason Comments PT Eval Patient Education Specialty Diagnoses / Procedures Referred By Contac t Referred To Contact [facility] Diagnoses Degenerative scoliosis Lumbar radiculopathy Chronic right-sided low back pain with right-sided sciatica Procedures CONSULT TO PHYSICAL THERAPY PHYSICAL THERAPY EVALUATION HIGH COMPLEX 45 MINS Monse Merlos PA-C [address] [place] [address] Phone: tel: fax: [facility] [address] [place] [address] Referral ID Status Reason Start Date Expiration Date Visits Requested Visits Authorized [id number] Authorized PCP Requested Referral Auto-Generate d Referral 06/12/2024 06/12/2025 99 99 Reason Comments PT Discharge Specialty Diagnoses / Procedures Referred By Contac t Referred To Contact PHYSICAL THERAPY Diagnoses other malaise R53.81 Procedures other malaise R53.81 Solo Calderón [address] [address] Pt [facility] [address] [place] [address] Referral ID Status Reason Start Date Expiration Date V isits Requested Visits Authorized [id number] Authorized 09/04/2023 09/03/2024 99 99 Reason Comments PT Progress Note Specialty Diagnoses / Procedures Referred By Contac t Referred To Contact [facility] Diagnoses Venous ulcer (HCC) Venous (peripheral) insufficiency Secondary lymphedema Procedures CONSULT TO PHYSICAL THERAPY PHYSICAL THERAPY EVALUATION HIGH COMPLEX 45 MINS Gt Yin, DO [address] [place] [address] [facility] [place] [address] [place] [id number] Referral ID Status Reason Start Date Expiration Date Visits Requested Visits Authorized [id number] Authorized PCP Requested Referral Auto-Generate d Referral 02/27/2024 02/26/2025 99 99 Reason Comments PT Eval Reason Comments New Patient Reason Comments New Pain Reason Comments Appointment Reason Comments Established Patient Reason Comments New Patient Low Back Pain Right Hip Pain Left Hip Pain Leg Pain Right upper Specialty Diagnoses / Procedures Referred By Contac t Referred To Contact [facility] [place] Diagnoses Degenerative scoliosis Procedures CONSULT TO [facility] OFFICE/OUTPATIENT NEW HIGH MDM 60 MINUTES Marisela Mccarty MD [address] [address] Referral ID Status Reason Start Date Expiration Date V isits Requested Visits Authorized [id number] Closed PCP Requested Referral 04/02/2024 04/02/2025 1 [...] COMPLEX 45 MINS Monse Merlos PA-C [address] [place] [address] Phone: tel: fax: [facility] [address] [place], [place] [address] [place] [address] FOR RECORDS PERTAINING TO PATIENTS WHO ARE [...] BE BASED ON THE PRIMARY CLINICAL RECORDS. [facility]. provides no warranty or guarantee of the accuracy or completeness of information in this document.
[2025-06-07 20:00] VITALS: BP 117/57; PULSE 52; RESP 10; O2SAT 94
[2025-06-07 21:00] VITALS: BP 143/47; PULSE 58; RESP 17; TEMP 36.5; O2SAT 98
[2025-06-07 21:00] LABS: Troponin T High Sens 2 HR 22 ng/L (<=14)
[2025-06-07 21:05] VITALS: BMI 26.9
[2025-06-07 21:08] LABS: Magnesium 1.5 mg/dL (1.5-2.2)
[2025-06-07] MEDS: Furosemide 500 MG in Empty Viaflex 50 mL 1 EACH CONT INF (22:50)
[2025-06-07] MEDS: 0.9% Saline Lock 10 ML Syringe IV (22:54)
[2025-06-07 23:11] LABS: Troponin T High Sens 4 HR 20 ng/L (<=14)
[2025-06-08 03:54] VITALS: BP 106/51; PULSE 62; RESP 18; TEMP 36.8; O2SAT 97
[2025-06-08 05:30] VITALS: BMI 26.6
--- NOTE | 2025-06-08 05:55 | ECHOD_ITS ---
Reason For Study Reason For Study: CONGESTIVE HEART FAILURE Procedure This was a 2D Doppler, Color Flow transthoracic echocardiogram. Myocardial strain analysis was performed in this exam to aid in the assessment of cardiac function. Exam performed portable in patient room. Left Ventricle Normal left ventricle. The global longitudinal strain = -24.3 % (normal). Stage 1 diastolic dysfunction. The left ventricular ejection fraction is 70 %. No regional wall motion abnormalities noted. Right Ventricle Normal RV size. Normal systolic function. Atria The left atrium is mildly enlarged. Normal right atrium. Bubble contrast study is negative for PFO/ASD. Mitral Valve Normal mitral valve. Tricuspid Valve Normal tricuspid valve. Aortic Valve Trisinus/trileaflet aortic valve. Pulmonic Valve Normal pulmonic valve. Great Vessels Normal aortic root. The pulmonary artery is normal size. Inferior vena cava collapse with respiration. Pericardium/Pleural No pericardial effusion. Medication Performed a rapid injection of agitated mix of 9 cc saline and 1cc air to assess for atrial septal defect. MMode/2D Measurements & Calculations LVIDd: 5.2 cm IVSd: 0.97 cm LVOT diam: 1.9 cm LVIDs: 2.9 cm LVPWd: 0.91 cm RVDd: 2.8 cm FS: 45.2 % LVOT area: 2.7 cm2 asc Aorta Diam: 3.4 cm LAV(MOD-bp): 76.3 ml LVAd ap4: 20.9 cm2 LAV(MOD-bp) Indexed: 46.9 ml/m2 LVLd ap4: 6.3 cm LAV(MOD-sp2): 87.4 ml EDV(MOD-sp4): 56.4 ml LAV(MOD-sp4): 64.0 ml EDV(sp4-el): 58.6 ml LVAs ap4: 10.4 cm2 LVLs ap4: 5.2 cm ESV(MOD-sp4): 17.0 ml ESV(sp4-el): 17.4 ml EF(MOD-sp4): 69.9 % EF(sp4-el): 70.4 % LVAd ap2: 18.3 cm2 SV(MOD-sp4): 39.4 ml SV(MOD-sp2): 24.9 ml LVLd ap2: 6.9 cm SI(MOD-sp4): 24.2 ml/m2 SI(MOD-sp2): 15.3 ml/m2 EDV(MOD-sp2): 39.9 ml EDV(sp2-el): 41.4 ml LVAs ap2: 10.1 cm2 LVLs ap2: 5.4 cm ESV(MOD-sp2): 15.1 ml ESV(sp2-el): 15.9 ml EF(MOD-sp2): 62.3 % SV(sp4-el): 41.3 ml Ao sinus diam: 3.[address] Junction: 2.6 cm LA dimension(2D): 4.4 cm LA A4 area: 23.1 cm2 RA A4 area: 19.4 cm2 TAPSE: 2.4 cm Time Measurements MV dec time: 0.25 sec Doppler Measurements & Calculations MV E max bong: 107.5 cm/sec Lat Peak E' Bong: 9.2 cm/sec Med Peak E' Bong: 8.8 cm/sec MV A max bong: 70.6 cm/sec E/E' lat: 11.7 E/E' med: 12.2 MV E/A: 1.5 MV dec slope: 437.7 cm/sec2 Ao V2 max: 161.1 cm/sec LV V1 max: 120.2 cm/sec Ao max P.4 mmHg LV V1 max P.8 mmHg Ao V2 mean: 115.5 cm/sec LV V1 mean P.5 mmHg Ao mean P.9 mmHg LV V1 mean: 89.0 cm/sec Ao V2 VTI: 42.9 cm LV V1 VTI: 35.8 cm AV (velocity ratio): 0.84 EMILY(I,D): 2.3 cm2 EMILY(V,D): 2.0 cm2 SV(LVOT): 97.1 ml PA V2 max: 95.2 cm/sec TR max bong: 287.6 cm/sec TR max P.1 mmHg ECHO/Echo Complete Interpretation Summary Bubble contrast study is negative for PFO/ASD. The left atrium is mildly enlarged. Normal left ventricle. The global longitudinal strain = -24.3 % (normal). Stage 1 diastolic dysfunction. The left ventricular ejection fraction is 70 %. Ordering Physician: Daija Maciel Referring Physician: Ernesto Rodriguez Performed By: Karla Morales RDCS
[2025-06-08 07:16] LABS: Hematocrit 25.1 % (37-47); Hemoglobin 8.9 g/dL (12.0-15.0); Immature Granulocytes Count 0.020 X10^3/uL (0.0-0.0); Mean Corp Hgb Conc 35.5 g/dL (32-36); Mean Corpuscular Volume 105.5 fL (81-99); Mean Platelet Vol. 9.7 fl (6.2-12.0); NRBC Flagged by Analyzer 0 % (0-5); Platelet Count 134 K/mm3 (150-450); RBC Distribution Width CV 14.3 % (11.6-14.6); RBC Distribution Width SD 54.9 fl (35.1-43.9); Red Blood Count 2.38 M/mm3 (4.2-5.4); White Blood Count 5.6 K/mm3 (4.4-11.0)
[2025-06-08 07:49] LABS: Cholesterol 108 mg/dL (<=200); Low Density Lipoprotein Calc. 62 mg/dL; Triglycerides 59 mg/dL; Very Low Density Lipoprotein 12 mg/dL (5-40); cholesterol:hdl ratio screen 3.20
[2025-06-08 08:04] LABS: AST(SGOT) 58 U/L (<=31); Alanine Aminotransfer ALT/SGPT 21 U/L (<=34); Albumin, Serum 3.1 g/dL (3.4-4.8); Alkaline Phosphatase 174 U/L (35-104); Anion Gap 14 (5-15); BUN 10 mg/dL (4-19); BUN/Creat Ratio 18.8 RATIO (10-20); Calcium,Total 8.4 mg/dL (7.6-11.0); Carbon Dioxide 21.0 mmol/L (21.0-32.0); Chloride 99 mmol/L (98-108); Estimated Creatinine Clearance 53.67 ml/min (50-250); Globulin 2.5 g/dL (2.2-4.2); Glucose 82 mg/dL (70-99); Potassium 3.0 mmol/L (3.3-5.1)
[2025-06-08 10:19] VITALS: BP 103/49; PULSE 56; RESP 18; TEMP 36.4; O2SAT 100
[2025-06-08] MEDS: Potassium Chloride Oral Tablet 20 MEQ PO ×2 (10:25→22:00)
--- NOTE | 2025-06-08 13:27 | PN_ITS ---
Subjective Subjective Patient seen and examined with his friend by his bedside. She had no active complaints. She said her lower extremity edema had improved. Review of systems is otherwise negative. Objective Data Objective Data Vital Signs: Vital Signs Temp Pulse Resp BP Pulse Ox O2 Del Method 97.6 F L 56 L 18 103/49 L 100 Room Air 06/08/25 10:19 06/08/25 10:19 06/08/25 10:19 06/08/25 10:19 06/08/25 10:19 06/08/25 10:19 Oxygen Delivery Method Room Air Weight: 141 lb 1.533 oz Body Mass Index (BMI) 26.6 Intake & Output: Intake and Output for Last 24 Hours 06/06/25 06/07/25 06/08/25 23:59 23:59 23:59 Intake Total 420 / 420 472.62 / 472.62 Output Total 1200 / 1200 1800 / 1800 Balance -780 / -780 -1327.38 / -1327.38 Lab / Micro Data 06/08/25 06:00 06/08/25 06:00 Labs: Laboratory Results - last 24 hr 06/07/25 17:46: WBC 5.8, RBC 2.53 L, Hgb 9.6 L, Hct 26.8 L, MCV 105.9 H, MCH 37.9 H, MCHC 35.8, RDW Std Deviation 56.3 H, RDW Coeff of Carlyle 14.5, Plt Count 161, MPV 9.5, Immature Gran % (Auto) 0.300, Neut % (Auto) 70.0, Lymph % (Auto) 18.3 L, [place] % (Auto) 8.6, Eos % (Auto) 2.1, Baso % (Auto) 0.7, Absolute Neuts (auto) 4.1, Absolute Lymphs (auto) 1.07, Nucleated RBC % 0, Sodium 130 L, Potassium 4.2, Chloride 95 L, Carbon Dioxide 22.5, Anion Gap 13, BUN 10, C reatinine 0.69 L, Estim Creat Clear Calc 59.34, Est GFR (MDRD) Non-Af 92, BUN/Creatinine Ratio 14.2, Glucose 105 H, Calcium 9.1, Phosphorus 2.9, Magnesium 1.5, Total Bilirubin 3.60 H, AST 87 H, ALT 25, Alkaline Phosphatase 196 H, T roponin T High Sens 27 H, NT pro BNP II 848, Total Protein 6.6, Albumin 3.6, Globulin 3.0, Albumin/Globulin Ratio 1.2 06/07/25 20:28: Troponin T Hi Sens 2 Hr 22 H 06/07/25 22:45: Troponin T Hi Sens 4Hr 20 H 06/08/25 06:00: WBC 5.6, RBC 2.38 L, Hgb 8.9 L, Hct 25.1 L, MCV 105.5 H, MCH 37.4 H, MCHC 35.5, RDW Std Deviation 54.9 H, RDW Coeff of Carlyle 14.3, Plt Count 134 L, MPV 9.7, Immature Gran % (Auto) 0.400, Neut % (Auto) 61.1, Lymph % (Auto) 26.8, [place] % (Auto) 9.2, Eos % (Auto) 2.0, Baso % (Auto) 0.5, Absolute Neuts (auto) 3.4, Absolute Lymphs (auto) 1.49, Nucleated RBC % 0, Sodium 134, P otassium 3.0 L, Chloride 99, Carbon Dioxide 21.0, Anion Gap 14, BUN 10, C reatinine 0.53 L, Estim Creat Clear Calc 53.67, Est GFR (MDRD) Non-Af 98, BUN/Creatinine Ratio 18.8, Glucose 82, Calcium 8.4, Total Bilirubin 3.35 H, AST 58 H, ALT 21, Alkaline Phosphatase 174 H, Total Protein 5.6 L, Albumin 3.1 L, Globulin 2.5, Albumin/Globulin Ratio 1.2, Triglycerides 59, Cholesterol 108, LDL Cholesterol, Calc 62, VLDL Cholesterol 12, HDL Cholesterol 34 L, Cholesterol/HDL Ratio 3.20 Radiography Diagnostic Testing: Radiology Impression Chest X-Ray 06/07/25 18:00 IMPRESSION: Mild cardiomegaly and mild pulmonary vascular congestion. Trace right pleural effusion. Reading Location: [facility] Rhythm Strip Rhythm Strip: Sinus bradycardia Rate: 57 Ectopy: None Physical Exam Const alert, oriented x3 and no apparent distress General Appearance: cooperative HEENT normocephalic, head/scalp atraumatic, moist oral mucous membranes and oropharynx normal Eyes EOMs intact bilaterally Neck supple and no JVD Lymph Lymphatic: no lymphedema noted Resp Resp Narrative: mildly diminished breath sounds bibasally, no wheezes or crackles. On room air. Cardio regular rate, regular rhythm, S1 normal heart sound, S2 normal heart sound and no murmurs GI normal to inspection, nondistended, normoactive bowel sounds, soft to palpation and non-tender Extremity Extremity Narrative: bilateral lower extremities wrapped in bandage. has bilateral lower extremity varicose veins. General Extremity: no tenderness to palpation of joints or extremities Skin General Skin Exam: no breakdown Neuro no focal motor deficits and no sensory deficits noted Motor Exam: general weakness Psych thought process normal, cooperative and affect normal Appearance: appropriate Assessment & Plan Assessment/Plan (1) Acute exacerbation of chronic heart failure: PLAN: Plan #Acute exacerbation of heart failure with preserved EF * Currently on IV Lasix drip. However blood pressure running low so will DC Lasix drip. * 2D echo from April 2024 showed EF of 60% with normal left ventricular size and systolic function. * 2D echo ordered and pending. * hold diuresis o/a of low BP * #History of alcoholic liver cirrhosis * has chronic mild transaminitis and chronic hyperbilirubinemia * follows with gastroenterology on outpatient basis * on spironolactone and nadolol. Not on rifaximin or lactulose. * Follow with gastroenterology on outpatient basis. * #Chronic hyponatremia: likely due to alcoholic liver cirrhosis. #Hypertension: on lasix, spironolactone and nadolol. These were held due to hypotension #Hypokalemia: K is 3. Will replace aggressively and trend. #Chronic bilateral lower extremity lymphedema * has bandage on both LEs. * also has history of squamous cell carcinoma of the skin on the RLE s/p excision in 2022. * wound care consulted. * #GERD: on PPI #History of alcohol use disorder: says she has been sober for 1 months. Counseled to continue abstaining. DVT prophylaxis: lovenox Code status: full code Charges/Coding Visit Charges Inpatient E&M: 79932 Subs Hosp L2
[2025-06-08] MEDS: Potassium Chloride 10mEq/100mL 10 MEQ/100 ML IV.SOLN. 100 MEQ IV BOLUS (14:52)
[2025-06-08] MEDS: Potassium Chloride 10mEq/100mL 10 MEQ/100 ML IV.SOLN. 25 MEQ IV BOLUS (18:03)
[2025-06-08] MEDS: Potassium Chloride 10mEq/100mL 10 MEQ/100 ML IV.SOLN. 75 MEQ IV BOLUS ×2 (21:17→22:33)
[2025-06-08 21:58] VITALS: BP 108/59; PULSE 63; RESP 17; TEMP 36.4; O2SAT 99
[2025-06-09 04:03] VITALS: BP 103/60; PULSE 60; RESP 17; TEMP 36.3; O2SAT 98
[2025-06-09 06:00] VITALS: BMI 27.3
[2025-06-09 08:35] LABS: Hematocrit 26.7 % (37-47); Hemoglobin 9.6 g/dL (12.0-15.0); Immature Granulocytes Count 0.020 X10^3/uL (0.0-0.0); Mean Corp Hgb Conc 36.0 g/dL (32-36); Mean Corpuscular Volume 104.3 fL (81-99); Mean Platelet Vol. 9.3 fl (6.2-12.0); NRBC Flagged by Analyzer 0 % (0-5); Platelet Count 126 K/mm3 (150-450); RBC Distribution Width CV 14.5 % (11.6-14.6); RBC Distribution Width SD 55.2 fl (35.1-43.9); Red Blood Count 2.56 M/mm3 (4.2-5.4); White Blood Count 4.5 K/mm3 (4.4-11.0)
[2025-06-09 08:59] VITALS: BP 111/52; PULSE 67; RESP 16; TEMP 36.4; O2SAT 98
[2025-06-09 08:59] LABS: Anion Gap 11 (5-15); BUN 11 mg/dL (4-19); BUN/Creat Ratio 19.5 RATIO (10-20); Calcium,Total 8.6 mg/dL (7.6-11.0); Carbon Dioxide 22.3 mmol/L (21.0-32.0); Chloride 101 mmol/L (98-108); Estimated Creatinine Clearance 54.26 ml/min (50-250); Glucose 83 mg/dL (70-99); Potassium 3.8 mmol/L (3.3-5.1)
[2025-06-09] MEDS: Potassium Chloride Oral Tablet 20 MEQ PO (09:08)
[2025-06-09] MEDS: Juven (unflavored) Packet 1 PACKET PO (09:08)
--- NOTE | 2025-06-09 11:30 | CASEMGMT ---
RN CM Face to Face with patient for initial transition planning/care coordination assessment. RN CM introduced self and role at [facility]. Patient lying in bed, alert and oriented. Patient willing to participate in assessment and is able to answer all questions appropriately. Care providers, pharmacy, and demographics verified. Strata: 3 PCP: Michael Specialists: Amanda, oncologist; Preferred [facility]acy: [facility] Insurance: [facility], MMO Prescription Benefit: yes Living Will/HPOA: yes, Shiv Negron LNOK: , daughter Living Arrangements: Patient lives with in a single story home with 2 steps and railing to enter the home. Patient states she is independent at home. Transportation: self, daughter DME/HHC: Patient has raised toilet, walker, rollator, and grab bars at home. Patient has had [facility] HHC in the past. Patient states she is able to do her own dressing changes and will follow-up with wound care on Monday. Patient wishes to discharge home, denies need for home health at this time. Patient states he has no further needs or concerns at this time. CM to follow for discharge planning needs that may arise. Disposition Plan: Patient to discharge home with family support and follow-up plans in place. Jenifer WOLF, RN, CM
[2025-06-09 14:25] VITALS: BP 114/57; PULSE 57; RESP 16; TEMP 36.4; O2SAT 97
--- NOTE | 2025-06-09 14:30 | DS.PCM_ITS ---
Providers Date of Admission: 06/07/25 Date of Discharge: 06/09/25 Primary Care Physician: Dr. Ernesto Rodriguez MD Consultations 06/07/25 20:46 Consult: Onc/Wound/manager credit collections Routine Comment: Reason for Consult:: BL LE stasis wounds Reason For Visit: HF EXACERBATION Diagnosis Discharge Diagnosis (1) Acute exacerbation of chronic heart failure: Status: Acute Code(s): I50.9 - Heart failure, unspecified Plan #Acute exacerbation of heart failure with preserved EF * Currently on IV Lasix drip. However blood pressure running low so will DC Lasix drip. * 2D echo from April 2024 showed EF of 60% with normal left ventricular size and systolic function. * 2D echo ordered and pending. * hold diuresis o/a of low BP * #History of alcoholic liver cirrhosis * has chronic mild transaminitis and chronic hyperbilirubinemia * follows with gastroenterology on outpatient basis * on spironolactone and nadolol. Not on rifaximin or lactulose. * Follow with gastroenterology on outpatient basis. * #Chronic hyponatremia: likely due to alcoholic liver cirrhosis. #Hypertension: on lasix, spironolactone and nadolol. These were held due to hypotension #Hypokalemia: K is 3. Will replace aggressively and trend. #Chronic bilateral lower extremity lymphedema * has bandage on both LEs. * also has history of squamous cell carcinoma of the skin on the RLE s/p excision in 2022. * wound care consulted. * #GERD: on PPI #History of alcohol use disorder: says she has been sober for 1 months. Counseled to continue abstaining. DVT prophylaxis: lovenox Code status: full code Medications at Discharge Home Medications compress.stocking,knee,reg,lrg #2 ea 05/09/23 calcium 600 mg (as carbonate)-vitamin D3 5 mcg (200 unit) tablet (Calcium 600 + D(3)) 1 tab PO BID 12/27/23 anastrozole 1 mg tablet 1 mg PO DAILY breast cancer #90 tabs 04/22/24 pantoprazole 40 mg tablet,delayed release 40 mg PO DAILY GERD 3 months #90 tabs 11/27/24 potassium chloride 20 mEq tablet,extended release(part/cryst) 20 meq PO BID SUPPLEMENT #90 tabs 01/13/25 nadolol 20 mg tablet 20 mg PO DAILY BP #90 tabs 03/05/25 tramadol 50 mg tablet 50 mg PO TID PRN pain #28 tabs 05/21/25 acetaminophen 325 mg capsule 650 mg PO BID PRN pain 06/07/25 calcium phosphate tribasic (Tums Gummy) 1,000 mg PO BID acid reflux 06/07/25 cholecalciferol (vitamin D3) 25 mcg (1,000 unit) capsule 25 mcg PO DAILY supplement 06/07/25 ciprofloxacin HCl 500 mg tablet 500 mg PO BID infection 06/07/25 ciprofloxacin HCl 750 mg tablet 750 mg PO BID infection 06/07/25 diclofenac sodium 1 % topical gel (Voltaren Arthritis Pain) 2 g topical Q6H PRN pain 06/07/25 folic acid 1 mg tablet 1 mg PO DAILY daily 06/07/25 midodrine 10 mg tablet 10 mg PO Q12H PRN hypotension 06/07/25 mirtazapine 7.5 mg tablet 7.5 mg PO QHS mood 06/07/25 pyridoxine (vitamin B6) 50 mg tablet 50 mg PO DAILY supp 06/07/25 spironolactone 25 mg tablet 25 mg PO BID edema 06/07/25 zinc sulfate 50 mg zinc (220 mg) capsule 50 mg PO DAILY supp 06/07/25 furosemide 40 mg tablet 40 mg PO DAILY DIURETIC #180 tabs 06/09/25 Hospital Course Operations None Procedures 2-D Echocardiogram Summary of Care Provided Minutes Spent on Discharge: 45 Hospital Course: Patient is a 74-year-old female with past medical history as outlined including alcoholic liver cirrhosis and heart failure preserved ejection fraction was admitted through the ED on 06/07/2025 with a complaint of bilateral lower extremity edema and weight gain. She was recently admitted at [facility] where she was treated for cellulitis and states subsequently noticed lower extremity swelling in both legs as well as 13 pound weight gain. She was on Lasix and says she had not taken it even up to 3 times a day which was not how she was supposed to be taking it. Sodium was 130, Cr was 0.69 and initial troponin was 27. Pro BNP was 848. CXR shwoed no acute cardiopulmonary pathology. She was admitted and managed for acute exacerbation of heart failure. She was diuresed with IV Lasix. Hospital course was complicated by hypokalemia which was aggressively replaced. Her lower extremity swelling resolved and she felt much better. 2D echo was ordered and showed EF of 70% with no regional wall motion abnormalities. She was discharged home on 06/09/2025 her Lasix dose was cut down to 40 mg daily due to her blood pressure running low on day of discharge. She was discharged on 06/09/2025 and is to follow-up with her primary care doctor within 1 to 2 weeks. Patient seen and examined. She had no active complaints. REview of systems is otherwise negative. Labs and vitals reviewed. Home meds reviewed and reconciled. Physical Exam Const alert, oriented x3 and no apparent distress General Appearance: cooperative and comfortable HEENT normocephalic, head/scalp atraumatic, hearing grossly normal bilaterally, moist oral mucous membranes and oropharynx normal Mouth: oral and palatal mucosa normal Eyes EOMs intact bilaterally Neck supple and no JVD Lymph Lymphatic: no lymphedema noted Resp Resp Narrative: mildly diminished breath sounds bibasally, no wheezes or crackles. On room air. Cardio regular rate, regular rhythm, S1 normal heart sound, S2 normal heart sound and no murmurs GI normal to inspection, nondistended, normoactive bowel sounds, soft to palpation and non-tender Extremity Extremity Narrative: bilateral lower extremities wrapped in bandage. has bilateral lower extremity varicose veins. General Extremity: no tenderness to palpation of joints or extremities Neuro oriented x3, CN's II-XII intact bilaterally, moves all extremities, no focal motor deficits and no sensory deficits noted Motor Exam: strength 5/5 throughout and general weakness Psych thought process normal, cooperative and affect normal Appearance: appropriate Weight / BMI Weight Weight: 144 lb 6.444 oz Body Mass Index (BMI) 27.3 ABG / Lab / Microbiology Data 06/09/25 08:25 06/09/25 08:25 Laboratory: Laboratory Results - last 24 hr 06/09/25 08:25: WBC 4.5, RBC 2.56 L, Hgb 9.6 L, Hct 26.7 L, MCV 104.3 H, MCH 37.5 H, MCHC 36.0, RDW Std Deviation 55.2 H, RDW Coeff of [place] 14.5, Plt Count 126 L, MPV 9.3, Immature Gran % (Auto) 0.400, Neut % (Auto) 55.5, Lymph % (Auto) 31.0, [place] % (Auto) 9.5, Eos % (Auto) 2.9, Baso % (Auto) 0.7, Absolute Neuts (auto) 2.5, Absolute Lymphs (auto) 1.40, Nucleated RBC % 0, Sodium 134, Potassium 3.8, Chloride 101, Carbon Dioxide 22.3, Anion Gap 11, BUN 11, C reatinine 0.56 L, Estim Creat Clear Calc 54.26, Est GFR (MDRD) Non-Af 97, BUN/Creatinine Ratio 19.5, Glucose 83, Calcium 8.6 Radiography Diagnostic Testing: Radiology Impression Echocardiogram 06/08/25 05:55 Interpretation Summary Bubble contrast study is negative for PFO/ASD. The left atrium is mildly enlarged. Normal left ventricle. The global longitudinal strain = -24.3 % (normal). Stage 1 diastolic dysfunction. The left ventricular ejection fraction is 70 %. Ordering Physician: Daija Maciel Referring Physician: Ernesto Rodriguez Performed By: Karla Morales RDCS D/C Instructions Discharge Activity: Return to Normal Activity Weight Bearing Status: Weight bearing as tolerated Call your doctor if you observe: Fever of 101 or Higher, Shortness of breath, Dizziness, Swelling in the ankles and Chest pain DC O2, CPAP, BIPAP Needs Home O2 Discharge instructions: No Meaningful Use Info Meaningful Use Meaningful Use Diagnoses (Choose all that apply): CHF CHF ANTONIO/ARB ordered at discharge?: Yes Documented LVEF (%): 60 Discharge Plan Admission Admit Date/Time: 06/07/25 19:09 Primary Reason for Your Visit: acute exacerbation of heart failure Attending Provider: Suha Sandoval Primary Care Provider: Ernesto Rodriguez Consulting Providers: Daija Maciel Instructions Patient Instructions: ED Heart Failure, Congestive (CHF), Heart Failure Discharge Orders/Prescriptions Prescriptions: Continued tramadol 50 mg tablet 50 mg PO TID PRN (Reason: pain) Qty: 28 0RF calcium carbonate-vitamin D3 [Calcium 600 + D(3)] 600 mg-5 mcg (200 unit) tablet 1 tab PO BID ciprofloxacin HCl 750 mg tablet 750 mg PO BID Patient Comments: PER PT TO TAKE FOR 10 DAYS STARTED ON 06/04 UNTIL 06/13. ciprofloxacin HCl 500 mg tablet 500 mg PO BID folic acid 1 mg tablet 1 mg PO DAILY midodrine 10 mg tablet 10 mg PO Q12H PRN (Reason: hypotension) mirtazapine 7.5 mg tablet 7.5 mg PO QHS pyridoxine (vitamin B6) 50 mg tablet 50 mg PO DAILY zinc sulfate 50 mg zinc (220 mg) capsule 50 mg PO DAILY spironolactone 25 mg tablet 25 mg PO BID diclofenac sodium [Voltaren Arthritis Pain] 1 % gel 2 g topical Q6H PRN (Reason: pain) Tums Gummy 250 mg calcium tablet,chewable 1,000 mg PO BID acetaminophen 325 mg capsule 650 mg PO BID PRN (Reason: pain) cholecalciferol (vitamin D3) 25 mcg (1,000 unit) capsule 25 mcg PO DAILY (DME) compress.stocking,knee,reg,lrg Misc See Rx Instructions .MEDSUPPLY Qty: 2 1RF Rx Instructions: wear daily for venous insufficiency 20-30 mmHg anastrozole 1 mg tablet 1 mg PO DAILY Qty: 90 4RF pantoprazole 40 mg tablet,delayed release (DR/EC) 40 mg PO DAILY 90 Days Qty: 90 1RF potassium chloride 20 mEq tablet,ER particles/crystals 20 meq PO BID Qty: 90 1RF nadolol 20 mg tablet 20 mg PO DAILY Qty: 90 1RF Changed furosemide 40 mg tablet 40 mg PO DAILY Qty: 180 0RF Referrals / Follow Up: Ernesto Rodriguez MD [Primary Care Provider, Internal Medicine] - Within 1 Week Disposition Disposition (needs filled in before D/C Order can be placed): Home, Self Care Charges/Coding Visit Charges Inpatient E&M: 55961 Disch Hosp >30min
--- NOTE | 2025-06-09 14:42 | PHA.DC.MR.R ---
Pharmacy [place] Med Reconciliation Pharmacy Service has performed discharge medication reconciliation for this patient. The patient's discharge medication list was reviewed for discrepancies and discrepancies were resolved. Medications at Discharge Home Medications compress.stocking,knee,reg,lrg #2 ea 05/09/23 calcium 600 mg (as carbonate)-vitamin D3 5 mcg (200 unit) tablet (Calcium 600 + D(3)) 1 tab PO BID 12/27/23 anastrozole 1 mg tablet 1 mg PO DAILY breast cancer #90 tabs 04/22/24 pantoprazole 40 mg tablet,delayed release 40 mg PO DAILY GERD 3 months #90 tabs 11/27/24 potassium chloride 20 mEq tablet,extended release(part/cryst) 20 meq PO BID SUPPLEMENT #90 tabs 01/13/25 nadolol 20 mg tablet 20 mg PO DAILY BP #90 tabs 03/05/25 tramadol 50 mg tablet 50 mg PO TID PRN pain #28 tabs 05/21/25 acetaminophen 325 mg capsule 650 mg PO BID PRN pain 06/07/25 calcium phosphate tribasic (Tums Gummy) 1,000 mg PO BID acid reflux 06/07/25 cholecalciferol (vitamin D3) 25 mcg (1,000 unit) capsule 25 mcg PO DAILY supplement 06/07/25 ciprofloxacin HCl 500 mg tablet 500 mg PO BID infection 06/07/25 ciprofloxacin HCl 750 mg tablet 750 mg PO BID infection 06/07/25 diclofenac sodium 1 % topical gel (Voltaren Arthritis Pain) 2 g topical Q6H PRN pain 06/07/25 folic acid 1 mg tablet 1 mg PO DAILY daily 06/07/25 midodrine 10 mg tablet 10 mg PO Q12H PRN hypotension 06/07/25 mirtazapine 7.5 mg tablet 7.5 mg PO QHS mood 06/07/25 pyridoxine (vitamin B6) 50 mg tablet 50 mg PO DAILY supp 06/07/25 spironolactone 25 mg tablet 25 mg PO BID edema 06/07/25 zinc sulfate 50 mg zinc (220 mg) capsule 50 mg PO DAILY supp 06/07/25 furosemide 40 mg tablet 40 mg PO DAILY DIURETIC #180 tabs 06/09/25
--- NOTE | 2025-06-09 15:33 | WOUNDNOTE ---
wound photo: right lateral lower leg
--- NOTE | 2025-06-09 15:34 | WOUNDNOTE ---
wound photo: left medial lower leg
--- NOTE | 2025-06-09 15:35 | WOUNDNOTE ---
wound photo: left lateral lower leg
== END 2025-06-09 15:34 | disposition home or self-care (01) | DRG 291 ==
LOC: ED 19:03 → PCU 19:54
PROVIDERS: Admitting Provider Family Medicine; Emergency Provider Emergency Medicine; PCP Internal Medicine; Visit Provider Student in an Organized Health Care Education/Training Program
DX: I11.0 Hypertensive heart disease with heart failure (principal); I50.33 Acute on chronic diastolic (congestive) heart failure; E87.1 Hypo-osmolality and hyponatremia; K70.30 Alcoholic cirrhosis of liver without ascites; D64.9 Anemia, unspecified; K21.9 Gastro-esophageal reflux disease without esophagitis; E87.6 Hypokalemia; Z79.899 Other long term (current) drug therapy; Z86.711 Personal history of pulmonary embolism
CPT/HCPCS: 36415; 71045; 80048; 80053; 80061; 83735; 83880; 84100; 84484; 85025; 93005; 93306; 97116; 97162; 97166; 97530; 99285; A4216; J1938

== ENCOUNTER → 2025-06-17 | Outpatient (CLI) | payer MEDICARE, OTHER, SELFPAY ==
--- NOTE | 2025-06-17 08:45 | BI_ITS ---
EXAM: SCREEN MAMM (CAD) W/ROBERTA UNI R DATE: 06/17/2025 CLINICAL HISTORY: F, Age 74 y/o , ANNUAL SCREENING Personal history of breast cancer. Prior left mastectomy. TECHNIQUE: Procedure Code: [id number] Modality: MG Procedure: SCREEN MAMM (CAD) W/ROBERTA UNI R COMPARISON: Prior exam(s) dated June 14, 2024.. FINDINGS: TISSUE DENSITY: The breasts are heterogeneously dense, which may obscure small masses. Bilateral Breast Mammographic Findings: No significant masses, calcifications or other abnormalities are identified. Stable secretory calcification and dense calcification in the retroareolar region of the breast. No suspicious masses, areas of developing architectural distortion, or suspicious calcifications. There has been no significant interval change. BI/SCREEN MAMM (CAD) W/ROBERTA UNI R IMPRESSION: Stable unilateral screening mammogram. OVERALL FINAL ASSESSMENT BI-RADS 2: BENIGN RECOMMENDATION: Routine annual follow-up in 1 Year Additional Recommendation none A letter with findings and recommendations will be mailed to the patient. Reading Location: [place] [id number]
== END | disposition home or self-care (01) ==
LOC: OPBI 08:44
PROVIDERS: PCP Internal Medicine; Referring Provider Internal Medicine Hematology & Oncology; Visit Provider Internal Medicine Hematology & Oncology
DX: Z12.31 Encounter for screening mammogram for malignant neoplasm of breast (principal)
CPT/HCPCS: 77063; 77067

== ENCOUNTER → 2025-07-10 | Outpatient (CLI) | payer MEDICARE, OTHER, SELFPAY ==
--- NOTE | 2025-07-10 10:28 | RAD_ITS ---
PROCEDURE: RAD/Lumbar Spine 2 or 3 Views
--- NOTE | 2025-07-10 10:45 | RAD_ITS ---
PROCEDURE: RAD/Thoracic Spine 3 Views
== END | disposition home or self-care (01) ==
LOC: RAD 10:22
PROVIDERS: PCP Internal Medicine; Referring Provider Anesthesiology Pain Medicine; Visit Provider Anesthesiology Pain Medicine
DX: M54.9 Dorsalgia, unspecified (principal)
CPT/HCPCS: 72072; 72100